=== PATIENT | male | born 1940 | race Caucasian/White ===

== ENCOUNTER → 2018-11-15 09:09 | Outpatient (CLI) | payer MEDICARE, OTHER, SELFPAY ==
[2017-02-19 15:56] VITALS: BMI 27.3
--- NOTE | 2018-11-15 09:25 | EKG12_ITS ---
Test Reason : PRE OP Blood Pressure : / mmHG Vent. Rate : 059 BPM Atrial Rate : 059 BPM P-R Int : 152 ms QRS Dur : 098 ms QT Int : 430 ms P-R-T Axes : 065 068 -06 degrees QTc Int : 425 ms Sinus bradycardia Moderate voltage criteria for LVH, may be normal variant T wave abnormality, consider inferior ischemia Abnormal ECG When compared with ECG of 11-OCT-2016 10:09, Premature ventricular complexes are no longer Present QT has shortened Confirmed by ISAIAH LAWTON, AMADOU ([id number]), makeup editor ALLIE FERMIN ([id number]) on 11/22/2018 12:58:27 PM Referred By: Frankie Fermin Confirmed By:AMADOU COLON MD
[2018-11-15 10:14] LABS: Hematocrit 44.4 % (40-54); Hemoglobin 14.6 g/dl (13.0-16.5); Mean Corp Hgb Conc 32.9 g/gl (32-36); Mean Corpuscular Hgb 30.1 pg (27.0-32.0); Mean Corpuscular Volume 91.5 fL (80-94); Mean Platelet Vol. 11.2 fl (6.2-12.0); Platelet Count 175 K/mm3 (150-450); RBC Distribution Width CV 14.5 % (11.6-14.6); RBC Distribution Width SD 47.4 fl (35.1-43.9); Red Blood Count 4.85 M/mm3 (4.6-6.2); White Blood Count 6.4 K/mm3 (4.4-11.0)
[2018-11-15 10:24] LABS: Scan Indicated on CBC? Y/N NO
[2018-11-15 10:53] LABS: Anion Gap 6 (5-15); BUN 27 mg/dL (7-18); BUN/Creat Ratio 21.4 RATIO (10-20); Calcium,Total 8.7 mg/dL (8.5-10.1); Chloride 108 mmol/L (98-107); Creatinine, Serum 1.26 mg/dL (0.70-1.30); EST Glomerular Filtration Rate 59 mL/min (>60); Est Glom Filt Rate - Afr Amer 71 mL/min (>60); Glucose 92 mg/dL (74-106); Potassium 4.2 mmol/L (3.5-5.1); Sodium Level 141 mmol/L (136-145)
== END ==
PROVIDERS: Family Provider Family Medicine; PCP Family Medicine; Referring Provider Orthopaedic Surgery; Visit Provider Orthopaedic Surgery
DX: Z01.818 Encounter for other preprocedural examination (principal); I10 Essential (primary) hypertension; Z79.899 Other long term (current) drug therapy
CPT/HCPCS: 36415; 80048; 85027; 93005

== ENCOUNTER → 2018-12-14 15:57 | Outpatient (CLI) | payer MEDICARE, OTHER, SELFPAY ==
[2017-02-19 15:56] VITALS: BMI 27.3
[2018-12-14 17:11] LABS: Hematocrit 44.8 % (40-54); Hemoglobin 14.3 g/dl (13.0-16.5); Mean Corp Hgb Conc 31.9 g/gl (32-36); Mean Corpuscular Hgb 28.9 pg (27.0-32.0); Mean Corpuscular Volume 90.5 fL (80-94); Mean Platelet Vol. 11.4 fl (6.2-12.0); Platelet Count 194 K/mm3 (150-450); RBC Distribution Width CV 14.7 % (11.6-14.6); RBC Distribution Width SD 47.9 fl (35.1-43.9); Red Blood Count 4.95 M/mm3 (4.6-6.2); Scan Indicated on CBC? Y/N NO; White Blood Count 8.3 K/mm3 (4.4-11.0)
[2018-12-14 17:19] LABS: Anion Gap 6 (5-15); BUN 30 mg/dL (7-18); BUN/Creat Ratio 22.7 RATIO (10-20); Calcium,Total 8.8 mg/dL (8.5-10.1); Chloride 107 mmol/L (98-107); Creatinine, Serum 1.32 mg/dL (0.70-1.30); EST Glomerular Filtration Rate 56 mL/min (>60); Est Glom Filt Rate - Afr Amer 67 mL/min (>60); Glucose 89 mg/dL (74-106); Potassium 3.9 mmol/L (3.5-5.1); Sodium Level 142 mmol/L (136-145)
== END ==
PROVIDERS: Family Provider Internal Medicine; PCP Internal Medicine; Referring Provider Orthopaedic Surgery; Visit Provider Orthopaedic Surgery
DX: Z01.818 Encounter for other preprocedural examination (principal); I10 Essential (primary) hypertension
CPT/HCPCS: 36415; 80048; 85027

== ENCOUNTER 2019-06-05 23:53 | Emergency (ER) | payer MEDICARE, OTHER, SELFPAY ==
[2019-05-18 10:22] VITALS: BMI 29.3
[2019-06-05 23:54] VITALS: BP 178/93; PULSE 74; RESP 16; TEMP 36.8; O2SAT 96; BMI 30.4
--- NOTE | 2019-06-06 00:06 | RAD_ITS ---
HISTORY: PPainRAD - Hip ADDITIONAL HISTORY: None provided. COMPARISON: None TECHNIQUE: Right hip 2 views with AP pelvis Number of images including paperwork: 3 FINDINGS: BONES: No acute fracture. JOINTS: No subluxation. Right total hip arthroplasty. Acetabular cup appears somewhat horizontally located and there appears to be some lucency in the adjacent acetabulum. 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 SOFT TISSUES: No distinct foreign body. Vascular calcifications. RAD/HIP, UNI W/ Pelvis 2-3 Views IMPRESSION: 1. No acute osseous abnormality. 2. 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 Orthopedic surgery follow-up and correlation with previous radiograph recommended. 3. Degenerative changes of the left hip. at 0032 Reported and signed by: Fariba Calderón MD Electronically Signed: Fariba Calderón MD at 0:32 EDT Tel , Service support ,
[2019-06-06] MEDS: Triamcinolone Acetonide 40 MG/ML Vial IM (00:38)
[2019-06-06] MEDS: HYDROcodone Bitartrate/Apap 5/325 Tablet PO (01:06)
--- NOTE | 2019-06-06 01:44 | DCINST.ED_ITS ---
ED Disposition - Plan for ED Patient: Instructions: Medication for Pain Prescriptions: Hydrocodone Bitart/Apap 5-325 [[place] 5MG-325MG] 1 tab PO Q6H PRN PRN 3 Days #12 tab PRN Reason: Pain Prescription Printed Referrals: Alexandru Paul DO [STAFF PHYSICIAN] -
--- NOTE | 2019-06-06 01:44 | ED.VISSUMM ---
- ER Visit Summary Date of Service: 06/06/19 Chief Complaint: Right hip pain History of Present Illness: The patient is a 79 M with right hip pain for a week. Worse when getting out of a truck. The pain is in his right hip and does not radiate. He has seen a chiropractor and urgent cares. He was started on prednisone, but nothing seems to help. He has a history of a right hip replacement remotely. Denies associated symptoms like redness or warmth. Denies weakness or numbness. Denies injury. Physical Examination: Afebrile and vital signs unremarkable. Right hip shows normal inspection. No shortening or abnormal rotation. Overlying skin appears normal. Range of motion intact. Pain with logroll. Knee unremarkable. Neurovascularly intact distally. 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 Emergency Department Course and Treatment: Patient treated with Kenalog IM. It sounds like this has helped him in the past. X-rays were concerning for particle disease. This was discussed with Dr. Paul. He said there was nothing to do for this emergently. If the patient required admission for pain control, we could admit to medicine. I discussed this with the patient. He will need follow-up with orthopedics. He would like to try to go home. He has a walker that he can use. We will attempt pain medication, and see how he does with the walker. He was treated with 2 [place]. On reevaluation, patient was feeling better. Pain was better. He was able to get around using a walker. He would like to go home and follow-up with orthopedics as an outpatient. He was given a short course of pain medicine. Call orthopedics in the morning to schedule follow-up. Treatment Plan: As above Disposition: Discharge Impression: 1. Right hip pain This note was generated with [employer] dictation software. It may contain incorrect words, spelling, and punctuation that were not noted in review of the chart prior to signing ED Disposition - Plan for ED Patient: Instructions: Medication for Pain Prescriptions: Hydrocodone Bitart/Apap 5-325 [[place] 5MG-325MG] 1 tab PO Q6H PRN PRN 3 Days #12 tab PRN Reason: Pain Prescription Printed Referrals: Alexandru Paul DO [STAFF PHYSICIAN] -
[2019-06-06 02:08] VITALS: BP 167/93; PULSE 94; RESP 18; O2SAT 95
== END 2019-06-06 02:11 | disposition home or self-care (01) ==
LOC: ED 06-06 00:37
PROVIDERS: Emergency Provider Emergency Medicine; Family Provider Internal Medicine; PCP Internal Medicine
DX: M25.551 Pain in right hip (principal); Z96.641 Presence of right artificial hip joint; I13.0 Hypertensive heart and chronic kidney disease with heart failure and stage 1 through stage 4 chronic kidney disease, or unspecified chronic kidney disease; I50.9 Heart failure, unspecified; N18.9 Chronic kidney disease, unspecified
CPT/HCPCS: 73502; 96372; 99284

== ENCOUNTER → 2019-06-14 06:34 | Outpatient (CLI) | payer MEDICARE, OTHER, SELFPAY ==
[2019-05-18 10:22] VITALS: BMI 29.3
[2019-06-05 23:54] VITALS: BMI 30.4
--- NOTE | 2019-06-14 06:44 | ECHOD_ITS ---
Reason For Study: Dyspnea/SOB Procedure This was a 2D Doppler, Color Flow transthoracic echocardiogram. Exam performed in department. Left Ventricle Normal LV size. Mild concentric left ventricular hypertrophy. Left ventricular systolic function is normal. The estimated ejection fraction is 60 %. Diastolic function is indeterminate. No regional wall motion abnormalities noted. Right Ventricle Normal RV size. Normal systolic function. Atria Borderline left atrial enlargement. Normal right atrium. No doppler evidence for ASD. Mitral Valve There is no mitral annular calcification. Normal mitral valve. Trivial mitral valve insufficiency. Tricuspid Valve Normal tricuspid valve. Trivial tricuspid valve insufficiency. Aortic Valve Trisinus/trileaflet aortic valve. Mild diffuse aortic valve thickening. Mild focal aortic valve calcification. Pulmonic Valve The pulmonic valve is not well visualized. Trivial pulmonic valve insufficiency. Great Vessels Normal sized aortic root. Pericardium/Pleural No pericardial effusion. MMode/2D Measurements & Calculations LVIDd: 4.7 cm IVSd: 1.3 cm Ao root diam: 3.4 cm LVIDs: 3.4 cm LVPWd: 1.3 cm RVDd: 4.0 cm FS: 28.4 % LAV(MOD-bp): 52.5 ml LVAd ap4: 32.6 cm2 SV(MOD-sp4): 54.1 ml LAV(MOD-bp) Indexed: 25.7 ml/m2 EDV(MOD-sp4): 95.5 ml LAV(MOD-sp2): 49.2 ml EDV(sp4-el): 96.7 ml LAV(MOD-sp4): 53.4 ml LVAs ap4: 20.0 cm2 ESV(MOD-sp4): 41.5 ml ESV(sp4-el): 41.4 ml EF(MOD-sp4): 56.6 % EF(sp4-el): 57.2 % SV(sp4-el): 55.3 ml LA A4 area: 18.7 cm2 LA dimension(2D): 4.9 cm RA A4 area: 11.7 cm2 Doppler Measurements & Calculations MV E max yunior: 88.0 cm/sec Lat Peak E' Yunior: 9.7 cm/sec Med Peak E' Yunior: 5.6 cm/sec MV A max yunior: 114.7 cm/sec E/E' lat: 9.0 E/E' med: 15.9 MV E/A: 0.77 Ao V2 max: 191.0 cm/sec LV V1 max: 110.6 cm/sec PA V2 max: 109.1 cm/sec Ao max P.6 mmHg LV V1 max P.9 mmHg Ao V2 mean: 128.8 cm/sec Ao mean P.5 mmHg Ao V2 VTI: 38.9 cm Interpretation Summary Left ventricular systolic function is normal. The estimated ejection fraction is 60 %. Mild concentric left ventricular hypertrophy. Borderline left atrial enlargement. Trivial mitral valve insufficiency. Trivial tricuspid valve insufficiency. Mild diffuse aortic valve thickening. Mild focal aortic valve calcification. Trivial pulmonic valve insufficiency. Diastolic function is indeterminate. Ordering Physician: Fred Felipe Referring Physician: Dallas Reed Performed By: Marianne Jay, KATHRYN, RVT
--- NOTE | 2019-06-14 13:59 | STRESSREP ---
Stress Test Report Date: 05-25-19 Procedure: Pharmacologic stress nuclear imaging study Indications: Shortness of breath/dyspnea on exertion; CHF-chronic diastolic; peripheral arterial occlusive disease; hyperlipidemia; hypertension Consent: Per the patient Procedure: The patient underwent pharmacologic (Regadenoson) evaluation with a peak heart rate of 93 beats per minute (65 %predicted maximal heart rate) and a peak blood pressure of 160/88 mmHg. The baseline ECG demonstrated normal sinus rhythm. The peak pharmacologic ECG demonstrated no obvious ECG changes. There was a rare PVC during infusion and an occasional PVC during recovery. There was no complaint of chest discomfort during pharmacologic infusion or recovery. The examination was discontinued secondary to completion of protocol. Impression: 1. Pharmacologic (Regadenoson) evaluation 2. Peak pharmacologic ECG with no obvious ECG changes. 3. There was a rare PVC during infusion and an occasional PVC during recovery. 4. Nuclear images pending Myocardial perfusion imaging study: Technique: The patient was injected with 14.6 millicuries of technetium 99m Cardiolite and subsequently rest SPECT Cardiolite nuclear imaging was obtained in the horizontal long, vertical long, and short axis views. The patient underwent pharmacologic (Regadenoson) evaluation with a peak heart rate of 93 beats per minute (65 % percent predicted maximal heart rate) and a peak blood pressure of 160/88 mmHg. The patient was injected with 44.7 millicuries of technetium 99m Cardiolite and subsequently stress SPECT Cardiolite nuclear imaging was obtained in the horizontal long, vertical long, and short axis views. A gated Cardiolite study at peak stress was obtained. Interpretation: Rest and stress SPECT Cardiolite nuclear imaging status post realignment, normalization, and attenuation correction demonstrate relative uniform tracer uptake and myocardial perfusion appearing within normal limits. There is end systolic thickening and brightening. The gated Cardiolite study demonstrates myocardial thickening and inward wall motion. The reported LVEF is 61 %. Impression: 1. Rest and stress SPECT Cardiolite nuclear imaging demonstrate relative uniform tracer uptake and myocardial perfusion appearing within normal limits. 2. The gated Cardiolite study reports an LVEF of 61 %. This note was generated with [employer] software. It may contain incorrect words, spelling, and punctuation that were not noted in checking the note before signing.
== END ==
PROVIDERS: Family Provider Internal Medicine; PCP Internal Medicine; Referring Provider Internal Medicine Cardiovascular Disease; Visit Provider Internal Medicine Cardiovascular Disease
DX: Z01.810 Encounter for preprocedural cardiovascular examination (principal); I11.0 Hypertensive heart disease with heart failure; I50.32 Chronic diastolic (congestive) heart failure; E78.5 Hyperlipidemia, unspecified; R06.02 Shortness of breath
CPT/HCPCS: 78452; 93017; 93306; A9500; A4216; J2785

== ENCOUNTER 2019-06-15 11:58 | Emergency (ER) | payer MEDICARE, OTHER, SELFPAY ==
[2019-06-15 11:59] VITALS: BP 154/75; PULSE 78; RESP 18; TEMP 36.6; O2SAT 97; BMI 30.4
--- NOTE | 2019-06-15 12:41 | CT_ITS ---
STUDY: CT RIGHT FEMUR WITHOUT CONTRAST REASON FOR EXAM: Male, 79 years old. Right hip pain. Prior right total hip replacement. RADIATION DOSAGE (If Supplied By Facility): CTDIvol = ( 20.02 ) mGy, DLP = ( 976.76 ) mGycm TECHNIQUE: Transaxial CT imaging of the femur was performed. Sagittal and coronal images were reconstructed. Individualized dose optimization techniques were used for this CT. COMPARISON: Comparison is made with prior radiograph dated June 06, 2019. FINDINGS: The patient is status post right total hip replacement. There is good alignment. There is no evidence of fracture or dislocation. There is prominence of the right iliopsoas muscle extending to the anterior muscle group. This may represent the edema. Distended urinary bladder. There is evidence of a 2.9 cm x 3.9 cm diverticulum in the posterior lateral aspect of the right side of the bladder. CT/Extremity Lower without Contra IMPRESSION: Status post right hip replacement appears good alignment. Findings suggestive of swelling of the iliopsoas psoas muscle and the anterior muscle group right side overlying the hip joint. This may represent edema. Right-sided bladder diverticulum. Electronically Signed: Jw Alcaraz, at 14:31 EDT , Service support ,
[2019-06-15] MEDS: Morphine 4 MG/ML Syringe SC (13:20)
[2019-06-15 13:24] LABS: Erythrocyte Sedimentation Rate 5 mm/hr (0-20)
[2019-06-15 13:25] LABS: Absolute Neutrophil Count 7.5 X10^3/uL (2.0-7.7); Basophil# 0.03 X10^3/uL; Basophil% 0.3 % (0-1); Eosinophil# 0.01 X10^3/uL; Eosinophils% 0.1 % (0-5); Hematocrit 37.8 % (40-54); Hemoglobin 12.4 g/dL (13.0-16.5); Lymphocyte % 14.4 % (19-41); Mean Corp Hgb Conc 32.8 g/dL (32-36); Mean Corpuscular Hgb 29.7 pg (27.0-32.0); Mean Corpuscular Volume 90.6 fL (80-94); Mean Platelet Vol. 10.9 fl (6.2-12.0); Monocyte# 0.64 X10^3/uL; Monocyte% 6.6 % (0-10); NRBC Flagged by Analyzer 0 % (0-5); Neutrophil # 7.47 X10^3/uL (2.7-7.7); Platelet Count 197 K/mm3 (150-450); RBC Distribution Width CV 14.5 % (11.6-14.6); RBC Distribution Width SD 48.1 fl (35.1-43.9); Red Blood Count 4.17 M/mm3 (4.6-6.2); White Blood Count 9.7 K/mm3 (4.4-11.0)
[2019-06-15 13:31] LABS: CRP < 2.90 mg/L (0.0-3.0)
--- NOTE | 2019-06-15 14:48 | ED.VISSUMM ---
- ER Visit Summary Date of Service: 06/15/19 Chief Complaint: Right hip pain History of Present Illness: The patient is a 79 M with ongoing right hip pain. Status post hip replacement something like 20 years ago. He was seen previously for hip pain and followed up with his orthopedist. He had an outpatient MRI but is awaiting the results. He has continued pain. He is using oxycodone once or twice a day with no improvement of his pain. No new or different symptoms. He has pain that radiates from his right hip into his groin. Denies any urinary symptoms. Denies back pain. Denies weakness or numbness. Denies fevers or systemic symptoms. Physical Examination: Afebrile and vital signs unremarkable. Inspection is unremarkable. Strength and sensation are intact. Abdomen soft. Back is nontender. Test Results: See below Emergency Department Course and Treatment: Patient's previous visit was reviewed. I could not see the results of the MRI, so I spoke with Dr. Loco. He was concerned for a muscle tear. He recommended CT as well as CBC, ESR, and CRP. The patient was treated with morphine while awaiting results. White count normal. Hemoglobin 12.4. ESR 5 and CRP less than 2.9. CT showed prominence of the iliopsoas muscle consistent with edema. He has postoperative changes and a bladder diverticulum. I suspect that he has muscle pain and a possible tear. There is nothing to suggest infection, fracture, or other implants anomaly. Dr. Loco will see the patient tomorrow. I advised that he can take his pain medication up to every 6 hours. He was given a new prescription. Treatment Plan: As above Disposition: Discharge Impression: 1. Right hip pain This note was generated with [employer] software. It may contain incorrect words, spelling, and punctuation that were not noted in review of the chart prior to signing ED Disposition - Plan for ED Patient: Referrals: Dallas Reed MD [Primary Care Provider] -
--- NOTE | 2019-06-15 14:51 | ED.DEP ---
ED Disposition - Plan for ED Patient: Instructions: Hip Strain Prescriptions: Oxycodone HCl/Acetaminophen [P[place] 5/325] 1 tab PO Q6H PRN PRN 3 Days #12 tab PRN Reason: Pain Prescription Printed Referrals: Shelton Loco MD [STAFF PHYSICIAN] -
[2019-06-15 14:53] VITALS: BP 170/93
== END 2019-06-15 15:05 | disposition home or self-care (01) ==
LOC: ED 13:24
PROVIDERS: Emergency Medicine; Emergency Provider Emergency Medicine; Family Provider Internal Medicine; PCP Internal Medicine
DX: M25.551 Pain in right hip (principal); N32.3 Diverticulum of bladder; Z79.899 Other long term (current) drug therapy; Z96.641 Presence of right artificial hip joint
CPT/HCPCS: 73700; 85025; 85652; 86140; 96372; 99283; A4216

== ENCOUNTER → 2019-12-05 13:28 | Outpatient (CLI) | payer MEDICARE, OTHER, SELFPAY ==
[2019-07-24 15:17] VITALS: BMI 29.9
--- NOTE | 2019-12-05 13:33 | US_ITS ---
STUDY: SCROTUM ULTRASOUND REASON FOR EXAM: Male, 79 years old. Right groin pain. Right inguinal hematoma removed July 2019. TECHNIQUE: Ultrasound evaluation of the scrotum was performed with color Doppler and static tom-scale imaging. COMPARISON: None. FINDINGS: RIGHT TESTICLE INTRATESTICULAR: There is a normal size of the right testicle. The right testicle measures 4.5 x 3.0 x 3.2 cm. There is a homogenous echotexture. There is normal arterial and normal venous vascularity. Testicular cyst measuring 0.4 x 0.4 x 0.2 cm. EXTRATESTICULAR: The epididymis is normal in size. The epididymis head measures 1.0 x 0.9 x 0.8 cm. There is normal vascularity of the epididymis. There is no demonstrated epididymal cystic structure. There is a moderate size hydrocele. There is no demonstrated varicocele. There is no demonstrated extratesticular mass or cyst. LEFT TESTICLE INTRATESTICULAR: There is a normal size of the left testicle. The left testicle measures 4.0 x 2.7 x 3.0 cm. There is a homogenous echotexture. There is normal arterial and normal venous vascularity. Testicular cysts measuring 0.6 x 0.6 x 0.5 cm and 0.3 x 0.2 x 0.2 cm. EXTRATESTICULAR: The epididymis is normal in size. The epididymis head measures 0.9 x 0.8 x 0.7 cm. There is normal vascularity of the epididymis. Epididymal cyst measuring 0.7 x 0.5 x 0.5 cm. There is a moderate size hydrocele. There is no demonstrated varicocele. There is no demonstrated extratesticular mass or cyst. US/Testicular with Arterial Flow IMPRESSION: Bilateral subcentimeter testicular cysts. Recommend urology consult. Moderate bilateral hydroceles. Left epididymal cyst. No right inguinal hematoma. Electronically Signed: Twin Jade MD at 8:01 EDT , Service support ,
== END ==
PROVIDERS: PCP Internal Medicine; Referring Provider Nurse Practitioner Family; Visit Provider Nurse Practitioner Family
DX: R10.2 Pelvic and perineal pain (principal)
CPT/HCPCS: 76870; 93976

== ENCOUNTER → 2020-02-23 07:45 | Outpatient (CLI) | payer MEDICARE, OTHER, SELFPAY ==
[2020-02-14 11:03] VITALS: BMI 28.8
--- NOTE | 2020-02-23 07:45 | AAVD_ITS ---
Reason For Study: AAA Aorta Measurements Aorta Doppler Measurements Proximal aorta measures1.67 X 1.71cm. in cross- Peak systolic flow velocities within the proximal sectional axis. aorta measure 80.9 cm/sec. Proximal aorta measures1.61cm. in longitudinal Peak systolic flow velocities within the mid aorta axis. measure 70.2 cm/sec. Mid aorta measures3.67 X 3.65cm. in cross- Peak systolic flow velocities within the distal sectional axis. aorta measure 68.3 cm/sec. Mid aorta measures3.47cm. in longitudinal axis. Distal aorta measures1.93 X 1.98cm. in cross- sectional axis. Distal aorta measures1.7cm. in longitudinal axis. Left Iliac Artery Left iliac artery measures 1.17 X 1.13 cm. in the cross-sectional axis. Left iliac artery measures 1.2 cm. in the longitudinal axis. Peak systolic velocity in the left iliac artery measures 125.8 cm/sec. Right Iliac Artery Right iliac artery measures 1.22 X 1.25 cm. in the cross-sectional axis. Right iliac artery measures 1.1 cm. in the longitudinal axis. Peak systolic velocity in the right iliac artery measures 99.0 cm/sec. Procedure Aorta IVC Iliac vasculature or bypass grafts [id number]. Exam performed in department. 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
== END ==
PROVIDERS: PCP Internal Medicine; Referring Provider Internal Medicine Cardiovascular Disease; Visit Provider Internal Medicine Cardiovascular Disease
DX: I71.4 Abdominal aortic aneurysm, without rupture (principal)
CPT/HCPCS: 93978

== ENCOUNTER → 2021-01-03 08:45 | Outpatient (CLI) | payer MEDICARE, OTHER, SELFPAY ==
[2020-05-14 09:36] VITALS: BMI 28.1
--- NOTE | 2021-01-03 08:47 | CDU_ITS ---
Reason For Study: Carotid stenosis Rt. Velocities/BP Lt. Velocities/BP Prox CCA 69.5/20 cm/sec. Prox CCA 108.3/17 cm/sec. Mid CCA 74.7/17.3 cm/sec. Mid CCA 157.6/33.4 cm/sec. Dist CCA 77.3/10.8 cm/sec. Dist CCA 112/15.2 cm/sec. Prox ICA 425.3/111.5 cm/sec. Prox ICA 127.9/33.6 cm/sec. Mid ICA 198.1/52.7 cm/sec. Mid ICA 136.7/35.8 cm/sec. Dist ICA 143.2/47.4 cm/sec. Dist ICA 110.1/38.9 cm/sec. Rt. ICA/CCA = 5.69. Lt. ICA/CCA = 1.22. Prox ECA 204.6/10.7 cm/sec. Prox ECA 180.6/7.2 cm/sec. Rt. Vert. 75.4/24.3 cm/sec. Lt. Vert. 52/16.8 cm/sec. Right Extracranial There is homogeneous, smooth atherosclerotic plaque noted in the right common carotid artery. There is heterogeneous, irregular atherosclerotic plaque noted in the right internal carotid artery. There is heterogeneous, irregular atherosclerotic plaque noted in the right external carotid artery. Antegrade flow is noted in the right vertebral artery. Left Extracranial There is heterogeneous, smooth atherosclerotic plaque noted in the left common carotid artery. There is heterogeneous, irregular atherosclerotic plaque noted in the left internal carotid artery. There is heterogeneous, irregular atherosclerotic plaque noted in the left external carotid artery. Antegrade flow is noted in the left vertebral artery. Procedure Carotid Duplex [id number]. This is a Carotid Duplex examination using B-mode, color flow and specral Doppler. Exam performed in department. VL/Carotid Duplex Ultrasound Interpretation Summary Irregular calcific plaque at the proximal right internal carotid artery with gr eater than 70% stenosis. Findings concerning for greater than 80% stenosis. Greater than 50% stenosis right external carotid artery Irregular calcific plaque with shadowing left proximal internal carotid artery with 50 to 69% stenosis Less than 50% stenosis left external carotid artery Patent and antegrade vertebrals bilaterally Ordering Physician: Mike Jay Referring Physician: Dallas Reed M.D. Performed By: Felicita Jeronimo RVT
--- NOTE | 2021-01-03 08:47 | AAVD_ITS ---
Reason For Study: AAA history Aorta Measurements Aorta Doppler Measurements Proximal aorta measures1.77 x 1.71cm. in cross- Peak systolic flow velocities within the proximal sectional axis. aorta measure 128.9 cm/sec. Proximal aorta measures1.73cm. in longitudinal Peak systolic flow velocities within the mid aorta axis. measure 108.8 cm/sec. Mid aorta measures4.20 x 4.11cm. in cross- Peak systolic flow velocities within the distal sectional axis. aorta measure 101.5 cm/sec. Mid aorta measures4.10cm. in longitudinal axis. Distal aorta measures1.92 x 1.94cm. in cross- sectional axis. Distal aorta measures1.90cm. in longitudinal axis. Left Iliac Artery Left iliac artery measures 1.31 x 1.29 cm. in the cross-sectional axis. Left iliac artery measures 1.28 cm. in the longitudinal axis. Peak systolic velocity in the left iliac artery measures 132.5 cm/sec. Right Iliac Artery Right iliac artery measures 1.17 x 1.20 cm. in the cross-sectional axis. Right iliac artery measures 1.21 cm. in the longitudinal axis. Peak systolic velocity in the right iliac artery measures 86.9 cm/sec. Procedure Aorta IVC Iliac vasculature or bypass grafts [id number]. Exam performed in department. VL/Abd Aortic/IVC Duplex scan Interpretation Summary Proximal abdominal aorta 1.77 x 1.71 cm Mid abdominal aortic aneurysm 4.2 x 4.11 cm Right common iliac 1.17 x 1.2 cm in diameter Left common iliac 1.31 x 1.29 cm diameter Ordering Physician: Mike Jay Referring Physician: Dallas Reed M.D. Performed By: Felicita Jeronimo RVT
== END ==
PROVIDERS: PCP Internal Medicine; Referring Provider Nurse Practitioner Family; Visit Provider Nurse Practitioner Family
DX: I65.22 Occlusion and stenosis of left carotid artery (principal); I71.4 Abdominal aortic aneurysm, without rupture
CPT/HCPCS: 93880; 93978

== ENCOUNTER → 2021-01-09 07:49 | Outpatient (CLI) | payer MEDICARE, OTHER, SELFPAY ==
[2021-01-08 14:49] VITALS: BMI 26.6
[2021-01-09 08:04] LABS: Hematocrit 37.7 % (40-54); Hemoglobin 11.9 g/dL (13.0-16.5); Mean Corp Hgb Conc 31.6 g/dL (32-36); Mean Corpuscular Hgb 29.1 pg (27.0-32.0); Mean Corpuscular Volume 92.2 fL (80-94); Mean Platelet Vol. 10.2 fl (6.2-12.0); Platelet Count 156 K/mm3 (150-450); RBC Distribution Width CV 15.4 % (11.6-14.6); Red Blood Count 4.09 M/mm3 (4.6-6.2); White Blood Count 7.2 K/mm3 (4.4-11.0)
[2021-01-09 08:45] LABS: ALB/GLOB Ratio 0.9 RATIO (0.9-2.4); AST(SGOT) 19 U/L (15-37); Alanine Aminotransfer ALT/SGPT 21 U/L (16-61); Albumin, Serum 3.2 g/dL (3.2-5.0); Alkaline Phosphatase 60 U/L (45-117); Anion Gap 4 (5-15); BUN 24 mg/dL (7-18); Calcium,Total 8.7 mg/dL (8.5-10.1); Chloride 107 mmol/L (98-107); Cholesterol 182 mg/dL (200); Creatinine, Serum 1.33 mg/dL (0.70-1.30); EST Glomerular Filtration Rate 55 mL/min (>60); Est Glom Filt Rate - Afr Amer 66 mL/min (>60); Globulin 3.7 g/dL (2.2-4.2); Glucose 96 mg/dL (74-106); High Density Lipoprotein 61 mg/dL; Potassium 3.6 mmol/L (3.5-5.1); Protein, Total 6.9 g/dL (6.4-8.2); Sodium Level 141 mmol/L (136-145); Triglycerides 57 mg/dL; Very Low Density Lipoprotein 11 mg/dL (5-40)
== END ==
PROVIDERS: PCP Internal Medicine; Referring Provider Surgery; Visit Provider Surgery
DX: Z01.818 Encounter for other preprocedural examination (principal); I65.29 Occlusion and stenosis of unspecified carotid artery
CPT/HCPCS: 36415; 80053; 80061; 85027

== ENCOUNTER → 2021-01-10 07:58 | Outpatient (CLI) | payer MEDICARE, OTHER, SELFPAY ==
[2021-01-08 14:49] VITALS: BMI 26.6
--- NOTE | 2021-01-10 08:03 | CT_ITS ---
STUDY: CTA NECK WITH CONTRAST REASON FOR EXAM: Male, 81 years old. Carotid Stenosis RADIATION DOSAGE (If Supplied By Facility): CTDIvol = ( 20.59 ) mGy, DLP = ( 482.36 ) mGycm TECHNIQUE: CT angiography with multi-detector data acquisition was performed from the aortic arch to the skull base following intravenous administration of IV 100mL Isovue-370. MIP images were reconstructed from the axial data set. Post-processing of the angiographic images was performed, with multiplanar reformation and 3D reconstruction. Individualized dose optimization techniques were used for this CT. COMPARISON: None. FINDINGS: AORTIC ARCH: There is atherosclerotic calcific plaque formation of the aortic arch and great vessels arising from the aortic arch, without a hemodynamically significant stenosis. There is a normal origin of the brachiocephalic, left common carotid, and left subclavian arteries. RIGHT CAROTID ARTERIES: There is atherosclerotic plaque formation of the common carotid artery, but without a hemodynamically significant stenosis. Normal right common carotid bulb. There is extensive atherosclerotic plaque formation of the origin of the right internal carotid artery with an estimated stenosis of greater than 70%. Normal visualized cervical portion of the right internal carotid artery. There is extensive atherosclerotic plaque formation of the origin of the right external carotid artery with an estimated stenosis of greater than 70%. LEFT CAROTID ARTERIES: Normal left common carotid artery (CCA). Normal left common carotid bulb. There is mild atherosclerotic plaque formation of the origin of the left internal carotid artery with less than 50% cross sectional diameter stenosis. Normal visualized cervical portion of the left internal carotid artery. There is moderate atherosclerotic plaque formation of the origin of the left external carotid artery with an estimated stenosis of 50-69% stenosis. VERTEBRAL ARTERIES: Normal bilateral vertebral arteries. 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 50% narrowing at the origin of the left internal carotid artery. Electronically Signed: Jw Alcaraz MD at 12:32 EDT , Service support ,
[2021-01-10 08:20] VITALS: BP 151/69; PULSE 64; RESP 18; TEMP 36.4; O2SAT 96; BMI 26.6
== END ==
PROVIDERS: PCP Internal Medicine; Referring Provider Surgery; Visit Provider Surgery
DX: I65.23 Occlusion and stenosis of bilateral carotid arteries (principal)
CPT/HCPCS: 96360; 70498; J7040; Q9967; A4216

== ENCOUNTER 2021-01-20 05:24 | Inpatient (IN) | payer MEDICARE, OTHER, SELFPAY ==
[2021-01-14 16:00] VITALS: BMI 26.6
--- NOTE | 2021-01-16 13:42 | EKG12_ITS ---
Test Reason : PREOP Blood Pressure : / mmHG Vent. Rate : 068 BPM Atrial Rate : 068 BPM P-R Int : 148 ms QRS Dur : 098 ms QT Int : 442 ms P-R-T Axes : 054 050 012 degrees QTc Int : 469 ms Sinus rhythm with occasional Premature ventricular complexes and Premature atrial complexes Nonspecific T wave abnormality Prolonged QT Abnormal ECG Confirmed by TERENCE LAWTON, VERNELL ([id number]), assignment editor BENITA NUNN ([id number]) on 01/17/2021 10:07:33 AM Referred By: Omid Perez Confirmed By:VERNELL PRATT MD
[2021-01-16 14:52] LABS: Hematocrit 38.8 % (40-54); Hemoglobin 11.8 g/dL (13.0-16.5); Mean Corp Hgb Conc 30.4 g/dL (32-36); Mean Corpuscular Hgb 28.4 pg (27.0-32.0); Mean Corpuscular Volume 93.3 fL (80-94); Platelet Count 160 K/mm3 (150-450); RBC Distribution Width CV 15.7 % (11.6-14.6); RBC Distribution Width SD 53.6 fl (35.1-43.9); Red Blood Count 4.16 M/mm3 (4.6-6.2); White Blood Count 7.1 K/mm3 (4.4-11.0)
[2021-01-16 15:03] LABS: International Normalized Ratio 1.1; Prothrombin Time (Protime)PT. 13.3 SECONDS (11.7-14.9)
[2021-01-16 15:04] LABS: Partial Thromboplast Time 41.6 Seconds (24.1-36.2)
[2021-01-16 15:40] LABS: AST(SGOT) 23 U/L (15-37); Alanine Aminotransfer ALT/SGPT 24 U/L (16-61); Albumin, Serum 3.4 g/dL (3.2-5.0); Alkaline Phosphatase 62 U/L (45-117); Anion Gap 5 (5-15); BUN 25 mg/dL (7-18); BUN/Creat Ratio 17.4 RATIO (10-20); Chloride 105 mmol/L (98-107); Creatinine, Serum 1.44 mg/dL (0.70-1.30); EST Glomerular Filtration Rate 50 mL/min (>60); Est Glom Filt Rate - Afr Amer 61 mL/min (>60); Globulin 3.6 g/dL (2.2-4.2); Glucose 109 mg/dL (74-106); Potassium 3.8 mmol/L (3.5-5.1); Sodium Level 139 mmol/L (136-145)
[2021-01-20] VITALS (41 sets, daily range): BP systolic 93–164; BP diastolic 40–99; PULSE 58–71; RESP 14–18; TEMP 35.8–36.9; O2SAT 93–99; BMI 11.9; BMI 28.0
--- NOTE | 2021-01-20 06:04 | HP.PCM_ITS ---
History and Physical Date of Admission: 01/20/21 Intake Visit Reasons:?discuss CTA Cnc Service Technician Required: No Is patient in pain?: No Allergies lisinopril Allergy (Intermediate, Verified 01/14/21 16:01) Rashatorvastatin calcium [From Lipitor] Allergy (Verified 01/14/21 16:01) Otherclonidine Allergy (Verified 01/14/21 16:01) Unknownrosuvastatin calcium [From Crestor] Allergy (Verified 01/14/21 16:01) DvcynQjxjcib-Apn-Usm Reductase Inhibitor Allergy (Verified 01/14/21 16:01) Other Medications [id number] 1 ea PO DAILY 07/26/15 [History Confirmed 01/14/21] furosemide 20 mg tablet 20 mg PO DAILY 05/17/19 [History Confirmed 01/14/21] glucosamine-chondroitin 250 mg-200 mg tablet 2 tab PO DAILY? tab 05/17/19 [History Confirmed 01/14/21] losartan 100 mg tablet 100 mg PO DAILY 05/17/19 [History Confirmed 01/14/21] magnesium 200 mg tablet 400 mg PO DAILY? tab 05/17/19 [History Confirmed 01/14/21] cholecalciferol (vitamin D3) 50 mcg (2,000 unit) capsule 2,000 unit PO DAILY 05/18/19 [History Confirmed 01/14/21] coenzyme Q10 100 mg capsule 200 mg PO DAILY? cap 05/18/19 [History Confirmed 01/14/21] doxazosin 4 mg tablet 8 mg PO QHS? tab 05/18/19 [History Confirmed 01/14/21] garlic 1,000 mg capsule 1,000 mg PO DAILY? cap 05/18/19 [History Confirmed 01/14/21] grape seed extract 50 mg capsule 100 mg PO DAILY? cap 05/18/19 [History Confirmed 01/14/21] multivitamin 1 tab PO DAILY 05/18/19 [History Confirmed 01/14/21] biotin 5 mg capsule 5 mg PO DAILY 07/24/19 [History Confirmed 01/14/21] ascorbic acid (vitamin C) 500 mg capsule 4,000 mg PO DAILY? cap 02/14/20 [History Confirmed 01/14/21] colestipol 1 gram tablet 1 g PO BID? tab 02/14/20 [History Confirmed 01/14/21] hydralazine 100 mg tablet 100 mg PO Q6H? tab 02/14/20 [History Confirmed 01/14/21] carvedilol 12.5 mg tablet 12.5 mg PO BID? tab 05/14/20 [History Confirmed 01/14/21] aspirin 81 mg tablet,delayed release 81 mg PO QDAY #90 tablet 01/06/21 [Rx Confirmed 01/14/21] <Dr. Omid Perez MD - Last Filed: 01/14/21 16:18> Vital Signs ? 01/15/2116:00 Height 5 ft 8 in Weight: 175 lb BMI 26.6 BP 131/61 H Blood Pressure Location Rt brachial Position Sitting Respiration 16 Pulse 70 Pulse Source Monitor Temp 97.3 F L Temp Source Temporal Pulse Oximetry (%) 97 Oxygen Delivery Method room air [facility] <Germania Shoemaker - Last Filed: 01/14/21 16:01> Medical History? Abdominal aortic 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 Anemia Cough productive of purulent sputum 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, NYHA class 2 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 Diverticulosis Essential hypertension Hyperlipidemia Lumbar disc disease Pre-operative cardiovascular examination RSV (respiratory syncytial virus pneumonia) Shortness of breath Stenosis of right internal carotid artery Surgical History? History of blepharoplasty History of colonoscopy History of inguinal hernia repair History of total hip replacement History of total left knee replacement History of umbilical hernia repair Family History? Father?? Lung cancer Liver cancerMother Oral cancer Social History? Smoking Status:? Former smoker? second hand exposure:? No? alcohol intake:? never? substance use type:? does not use? caffeine:? Yes Type: coffee Number of servings: 2? <Dr. Omid Perez MD - Last Filed: 01/14/21 16:18> HPI HPI: Very pleasant 81-year-old gentleman.? 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 Most recent exhaustive office note will follow. On January 10, 2021 I had a CTA of the neck obtained.? This demonstrates greater than 70% stenosis of the right internal carotid artery and greater than 70% stenosis of the right external carotid artery.? There is less than 50% stenosis of the left internal carotid artery and 50 to 69% stenosis of left external carotid artery.? The vertebrals are patent and antegrade. It is of additional note that the patient is intolerant to all statin medications.? He is not able to manage his cholesterol in that fashion. Laboratory of January 09, 2001 shows a white count of 7.2 with a hemoglobin 11.9 hematocrit 37.7 and a platelet count of 156,000.? BUN was 24 and creatinine 1.33 with a GFR of 55.? Liver function test was normal.? Cholesterol is 182 with a triglyceride of 57.? LDL was 110 with a VLDL of 11. My previous notes reflect the following Intake Visit Reasons: AAA Carotid? Chief Complaint: AAA/ Carotid Cnc Service Technician Required: No Is patient in pain?: No Allergies lisinopril Allergy (Intermediate, Verified 01/08/21 14:41) Rashatorvastatin calcium [From Lipitor] Allergy (Verified 01/08/21 14:41) Otherclonidine Allergy (Verified 01/08/21 14:41) Unknownrosuvastatin calcium [From Crestor] Allergy (Verified 01/08/21 14:41) FwqdtEufxlrb-Jau-Lvk Reductase Inhibitor Allergy (Verified 01/08/21 14:41) Other Medications Om-3/Dha/Epa/D3/B12/FA/B-6/Phy [Animi-3 Capsule] 1 ea PO DAILY 07/26/15 [History Confirmed 01/08/21] furosemide 20 mg tablet 20 mg PO DAILY 05/17/19 [History Confirmed 01/08/21] glucosamine-chondroitin 250 mg-200 mg tablet 2 tab PO DAILY? tab 05/17/19 [History Confirmed 01/08/21] losartan 100 mg tablet 100 mg PO DAILY 05/17/19 [History Confirmed 01/08/21] magnesium 200 mg tablet 400 mg PO DAILY? tab 05/17/19 [History Confirmed 01/08/21] cholecalciferol (vitamin D3) 50 mcg (2,000 unit) capsule 2,000 unit PO DAILY 05/18/19 [History Confirmed 01/08/21] coenzyme Q10 100 mg capsule 200 mg PO DAILY? cap 05/18/19 [History Confirmed 01/08/21] doxazosin 4 mg tablet 8 mg PO QHS? tab 05/18/19 [History Confirmed 01/08/21] garlic 1,000 mg capsule 1,000 mg PO DAILY? cap 05/18/19 [History Confirmed 01/08/21] grape seed extract 50 mg capsule 100 mg PO DAILY? cap 05/18/19 [History Confirmed 01/08/21] multivitamin 1 tab PO DAILY 05/18/19 [History Confirmed 01/08/21] biotin 5 mg capsule 5 mg PO DAILY 07/24/19 [History Confirmed 01/08/21] ascorbic acid (vitamin C) 500 mg capsule 4,000 mg PO DAILY? cap 02/14/20 [History Confirmed 01/08/21] colestipol 1 gram tablet 1 g PO BID? tab 02/14/20 [History Confirmed 01/08/21] hydralazine 100 mg tablet 100 mg PO Q6H? tab 02/14/20 [History Confirmed 01/08/21] carvedilol 12.5 mg tablet 12.5 mg PO BID? tab 05/14/20 [History Confirmed 01/08/21] aspirin 81 mg tablet,delayed release 81 mg PO QDAY #90 tablet 01/06/21 [Rx Confirmed 01/08/21] PFSH Medical History? (Updated 01/08/21 @ 16:[address] Omid Perez MD) Stenosis of right internal carotid artery (Acute) Anemia (Chronic) Diverticulosis (Chronic) Lumbar disc disease (Chronic) Abdominal aortic 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 (Chronic) Essential hypertension (Chronic) 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 (Chronic) Hyperlipidemia (Chronic) Chronic kidney disease (Chronic) 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, NYHA class 2 (Suspected) Shortness of breath (Acute) Cough productive of purulent sputum (Resolved) Pre-operative cardiovascular examination (Resolved) RSV (respiratory syncytial virus pneumonia) (Resolved) Surgical History? (Updated 01/08/21 @ 14:49 by Germania Shoemaker) History of total hip replacement (Chronic) History of total left knee replacement (Chronic) History of umbilical hernia repair (Chronic) History of inguinal hernia repair (Chronic) History of blepharoplasty (Chronic) History of colonoscopy (Chronic) Family History? Father?? Lung cancer Liver cancerMother Oral cancer Social History? (Updated 01/08/21 @ 16:[address] Omid Perez MD) Smoking Status:? Former smoker? second hand exposure:? No? alcohol intake:? never? substance use type:? does not use? caffeine:? Yes Type: coffee Number of servings: 2? HPI HPI HPI: CAROLINA SY, is a 81 M who presents to the office today for surgical consultation regarding extracranial carotid artery occlusive disease and infr arenal abdominal aortic aneurysm.? The patient is referred by Mike Jay CNP and a written combination of consult recommendations will return to him. The patient has a known history of abdominal aortic aneurysm.? February 23, 2020 on duplex ultrasound his aneurysm measured 3.67 x 3.65 cm.? More recently he had that evaluated on January 03, 2021 at the [facility].? The mid abdominal aortic aneurysm now measures 4.2 x 4.11 cm in diameter.? The right common iliac 1.17 x 1.2 cm in the left common leg 1.31 x 1.29 cm. He currently denies any abdominal or back pain. Also on January 03 he had carotid duplex imaging because of a previous history of carotid stenosis.? Within the proximal right internal carotid artery peak systolic velocity is 425 cm/s flow and end-diastolic velocity is 111 cm/s flow.? This is consistent with greater then 70% stenosis and likely greater than 80% stenosis.? The right external carotid arteries greater than 50% stenosis.? The left internal carotid artery had a peak systolic velocity of 136 cm second be slow flow consistent with 50 to 69% stenosis.? The vertebrals were patent and antegrade. The patient denies myocardial infarction or stroke.? He denies any orthostasis.? He claims he is able to walk without calf claudication.? If he walks a long distance then he will become dyspneic. Dr. Johnny Beltran assisted the patient June 27, 2019 because of a hematoma of the right iliopsoas muscle which was treated nonoperatively conservatively. The patient had a cardiac stress test June 14, 2019 demonstrating an ejection fraction of 61%.? With no ischemia. It is of additional note that July 9015 I assisted the patient with an extraordinarily challenging laparoscopic repair of a recurrent in incarcerated right inguinal hernia in combination with right lower quadrant ventral incisional hernias.? The inguinal repair was done with a Bard 3D max mesh in the ventral hernia repair performed with ventral light.? The patient states that he had quite a prolonged recovery after that procedure. Most recent laboratory that we have available September 05 shows a hemoglobin of 12.7 with hematocrit 38.7.? BUN is 25 and creatinine 1.33 with a GFR of 52 [facility] [address] [place] [address] Abd Aortic/IVC Duplex scan 01/03/21924 MR#:? [id number] Name: CAROLINA SY [facility] #:[id number] :? 1940? 81From: Omid Perez MD Attending Dr: ? ? Mike Jay NP-CStatus:? REG CLI Ordering Dr:? Mike Jay NP ATMOSPHERIC TECHNICIAN-CDate:? 01/03/21?? [facility]?? Reason For Study: AAA history Aorta Measurements? Aorta Doppler Measurements Proximal aorta measures1.77 x 1.71cm. in cross- ? Peak systolic flow velocities within the proximal sectional axis. ? aorta measure 128.9 cm/sec. Proximal aorta measures1.73cm. in longitudinal? ? Peak systolic flow velocities within the mid aorta axis. ? measure 108.8 cm/sec. Mid aorta measures4.20 x 4.11cm. in cross-? Peak systolic flow velocities within the distal sectional axis. ? aorta measure 101.5 cm/sec. Mid aorta measures4.10cm. in longitudinal axis. Distal aorta measures1.92 x 1.94cm. in cross- sectional axis. Distal aorta measures1.90cm. in longitudinal axis. Left Iliac Artery Left iliac artery measures 1.31 x 1.29 cm. in the cross-sectional axis. Left iliac artery measures 1.28 cm. in the longitudinal axis. Peak systolic velocity in the left iliac artery measures 132.5 cm/sec. Right Iliac Artery Right iliac artery measures 1.17 x 1.20 cm. in the cross-sectional axis. Right iliac artery measures 1.21 cm. in the longitudinal axis. Peak systolic velocity in the right iliac artery measures 86.9 cm/sec. Procedure Aorta IVC Iliac vasculature or bypass grafts 60363. Exam performed in department. VL/Abd Aortic/IVC Duplex scan Interpretation Summary Proximal abdominal aorta 1.77 x 1.71 cm Mid abdominal aortic aneurysm 4.2 x 4.11 cm Right common iliac 1.17 x 1.2 cm in diameter Left common iliac 1.31 x 1.29 cm diameter ? Ordering Physician: Mike Jay Referring Physician: Dallas Reed M.D. Performed By: Felicita Jeronimo RVT 01/03/21 1036 Date Omid Perez MD [facility] [address] [place] [id number] Carotid Duplex Ultrasound 01/03/21 0936 MR#:? [id number] Name: CAROLINA SY [facility] #:[id number] :? 1940? 81From: Omid Perez MD Attending Dr: ? ? Mike Jay NP-CStatus:? REG CLI Ordering Dr:? Mike Jay NP ATMOSPHERIC TECHNICIAN-CDate:? 01/03/21?? Location:[facility] Admitted:?? Reason For Study: Carotid stenosis Rt. Velocities/BP ? Lt. Velocities/BP Prox CCA 69.5/20 cm/sec.? Prox CCA 108.3/17 cm/sec. Mid CCA 74.7/17.3 cm/sec. ? Mid CCA 157.6/33.4 cm/sec. Dist CCA 77.3/10.8 cm/sec.? Dist CCA 112/15.2 cm/sec. Prox ICA 425.3/111.5 cm/sec.? Prox ICA 127.9/33.6 cm/sec. Mid ICA 198.1/52.7 cm/sec.? Mid ICA 136.7/35.8 cm/sec. Dist ICA 143.2/47.4 cm/sec. ? Dist ICA 110.1/38.9 cm/sec. Rt. ICA/CCA = 5.69. ? Lt. ICA/CCA = 1.22. Prox ECA 204.6/10.7 cm/sec. ? Prox ECA 180.6/7.2 cm/sec. Rt. Vert. 75.4/24.3 cm/sec. ? Lt. Vert. 52/16.8 cm/sec. Right Extracranial There is homogeneous, smooth atherosclerotic plaque noted in the right common carotid artery. There is heterogeneous, irregular atherosclerotic plaque noted in the right internal carotid artery. There is heterogeneous, irregular atherosclerotic plaque noted in the right external carotid artery. Antegrade flow is noted in the right vertebral artery. Left Extracranial There is heterogeneous, smooth atherosclerotic plaque noted in the left common carotid artery. There is heterogeneous, irregular atherosclerotic plaque noted in the left internal carotid artery. There is heterogeneous, irregular atherosclerotic plaque noted in the left external carotid artery. Antegrade flow is noted in the left vertebral artery. Procedure Carotid Duplex 53752. This is a Carotid Duplex examination using B-mode, color flow and specral Doppler. Exam performed in department. VL/Carotid Duplex Ultrasound Interpretation Summary Irregular calcific plaque at the proximal right internal carotid artery with greater than 70% stenosis. Findings concerning for greater than 80% stenosis. Greater than 50% stenosis right external carotid artery Irregular calcific plaque with shadowing left proximal internal carotid artery with 50 to 69% stenosis Less than 50% stenosis left external carotid artery Patent and antegrade vertebrals bilaterally ? Ordering Physician: Mike Jay Referring Physician: Dallas Reed M.D. Performed By: Felicita Jeronimo RVT 01/03/21 1039 Date HPI HPI HPI: CAROLINA SY, is a 81 M who presents to the office today for? ROS General General: Yes weight change and fatigue; no appetite, colon cancer, breast cancer or weakness HEENT HEENT: Yes eye surgery; no difficulty swallowing, eye injury, swollen glands or hoarseness Endo Endocrine: No thyroid disease, diabetes mellitus, thyroid cancer, Hair loss, heat intolerance or cold intolerance Skin Skin: No rash or changing moles Musc Musculoskeletal: No back problems, arthritis, rheumatoid arthritis, gout or joint pain Cardio Cardiovascular: Yes atrial fibrillation and high blood pressure; no murmur, pacemaker, heart disease, heart attack, heart stent, palpitations, shortness of breat with exertion or chest pain Psych Psychiatric: Yes depression and anxiety; no hearing voices Resp Respiratory: No shortness of breath, No sleep apnea, No cough, No COPD, No asthma, No emphysema, No wheezing Gastro Gastrointestinal: No abdominal pain, No nausea or vomiting, No diarrhea, No constipation, No blood in stool, No acid reflux, No hemorrhoids, No ulcers, No gallbladder problem, No black,tarry stools Leo Hematologic: No blood thinners, No blood disorders, No bleeding, No anemia, No blood clots Neuro Neurologic: No system reviewed and no additional complaints, except as docu, No as per HPI, No abnormal walking, No abnormal hearing, No abnormal movements, No abnormal speech, No behavioral changes, No burning sensations, No confusion, No seizure-like activity, No unsteadiness, No dizziness, No localized weakness, No frequent falls, No headache(s), No lack of coordination, No loss of vision, No memory loss, No numbness, No other visual disturbances, No radiating pain, No restless legs, No sensory deficit, No fainting, No tingling, No tremor(s), No weakness, No other Exam Const General: cooperative, comfortable, no acute distress Nutritional Appearance: average body habitus, well nourished Orientation: alert, awake [facility] Head: normal to inspection Eyes General: appearance normal, both eyes and all related structures Neck Neck: normal visual inspection Carotids: normal carotid upstroke, no bruits Lymphatic: no lymphadenopathy noted Resp Effort & Inspection: normal respiratory effort Auscultation: clear to auscultation bilaterally Cardio Rate: regular rate Rhythm: regular rhythm Heart Sounds: no murmurs Other: Bilateral radial and brachial pulses 3+ Bilateral femoral pulses 3+ GI Palpation: soft, no hepatosplenomegaly Other: Aortic aneurysm is just palpable, nontender Musc Cervical Spine: normal cervical lordosis Neuro Cognition: normal cognition Extrem Other: 2+ bilateral lower extremity pitting edema, nontender Psych Affect: normal affect Assessment & Plan Problems 1. Abdominal aortic 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? I71.4 2. Chronic kidney disease, unspecified CKD stage? N18.9 3. Stenosis of right internal carotid artery? I65.21 Plan 81-year-old gentleman.? He currently has a 4.2 cm infrarenal abdominal aortic aneurysm.? It has increased in size from previous 3.67 cm.? I have explained him that at this point it does not require repair but clearly is demonstrating ev idence of enlargement and careful follow-up would be indicated.? I recommend abdominal aortic duplex imaging at 6 months and office follow-up. He has asymptomatic high-grade stenosis of his right internal carotid.? I do recommend that we obtain additional imaging.? He does have stage IIIa chronic renal insufficiency.? We will want to recheck his laboratory.? He may require gentle fluid hydration of 500 cc of saline prior to the testing.? We will need to keep careful watch of this so as to not create fluid overload. I have discussed with him interventional techniques regarding his right carotid in the form of a right carotid endarterectomy with patch angioplasty in comparison to right carotid artery stenting.? Because of the slightly increase risk of stroke with endovascular stenting in an octogenarian I am currently proposing him surgical intervention.? I would like to use the additional imaging for further clarification.? I will then have him return to the office for additional discussion. Unfortunately it appears that he is intolerant to statin medications. He has had an opportunity to ask and have questions answered.? I appreciate the opportunity of assisting with surgical care.? We will repeat laboratory and then pursue further investigation as indicated.? Follow-up appointment is scheduled. Copy: Mike Jay CNP and Dr. Dallas Perez M.D., F.A.C.S. Orders ?Orders: ? Comprehensive Metabolic Profil Today I65.29, Z01.818 ? ? CTA Neck W/WO Contrast Today I65.29 ? ? CBC-Complete Blood Cnt No Diff Today I65.29, Z01.818 ? ? Abd Aortic/IVC Duplex scan 6 Months I71.4 ? ? Lipid Profile Today I65.29 ? Coding Level of Care Code 24573 Diagnoses Abdominal aortic 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? I71.4 Chronic kidney disease, unspecified CKD stage? N18.9 ??Chronic kidney disease stage: unspecified stage Stenosis of right internal carotid artery? I65.21 ROS <Germania Shoemaker - Last Filed: 01/14/21 16:01> General General: Yes weight change and fatigue;? No appetite, colon cancer, breast cancer or weakness HEENT HEENT: Yes eye surgery;? No difficulty swallowing, eye injury, swollen glands or hoarseness Endo Endocrine: No thyroid disease, diabetes mellitus, thyroid cancer, Hair loss, heat intolerance or cold intolerance Skin Skin: No rash or changing moles Musc Musculoskeletal: No back problems, arthritis, rheumatoid arthritis, gout or joint pain Cardio Cardiovascular: Yes atrial fibrillation and high blood pressure;? No murmur, pacemaker, heart disease, heart attack, heart stent, palpitations, shortness of breat with exertion or chest pain Psych Psychiatric: Yes depression and anxiety;? No hearing voices Resp Respiratory: No shortness of breath, No sleep apnea, No cough, No COPD, No asthma, No emphysema and No wheezing Gastro Gastrointestinal: No abdominal pain, No nausea or vomiting, No diarrhea, No constipation, No blood in stool, No acid reflux, No hemorrhoids, No ulcers, No gallbladder problem and No black,tarry stools Leo Hematologic: No blood thinners, No blood disorders, No bleeding, No anemia and No blood clots Neuro Neurologic: No system reviewed and no additional complaints, except as documented, No as per HPI, No abnormal gait, No abnormal hearing, No abnormal movements, No abnormal speech, No behavioral changes, No burning sensations, No confusion, No convulsions, No disequilibrium, No dizziness, No localized weakness, No frequent falls, No headache(s), No lack of coordination, No loss of vision, No memory loss, No numbness, No other visual disturbances, No radicular pain, No restless legs, No sensory deficit, No syncope, No tingling, No tremor(s), No weakness and No other Exam <Germania Shoemaker - Last Filed: 01/14/21 16:01> Cardio Heart Sounds: no murmurs <Dr. Omid Perez MD - Last Filed: 01/14/21 16:18> Assessment and Plan (1) Stenosis of right internal carotid artery: Plan Details Additional Comments: Based upon carotid duplex imaging and CTA of the right carotid there is greater than 70% stenosis.? Peak systolic velocity on duplex exam was greater than 400 cm/s. The patient also has a 4.2 x 4.11 cm abdominal aortic aneurysm. As anticipating that his abdominal aortic aneurysm is going to enlarge he could potentially get to the point where he has simultaneous carotid and aortic aneurysm issues.? He already appears to have high-grade stenosis of his right internal carotid.? I propose for him a right carotid endarterectomy with bovine patch angioplasty and arterial line monitoring.? He is aware of the technique, benefit, risk, alternatives.? He has had an opportunity to ask and have questions answered. We will schedule and proceed at his discretion.? I appreciate the ongoing opportunity of assisting with the surgical care. Copy: Dr. Dallas Perez M.D., F.A.C.S. Coding Level of Care Code Off vis,est,level 2 Diagnoses Stenosis of right internal carotid artery? I65.21 I have re-examined the patient. There are no clinical changes since date of exam.
--- NOTE | 2021-01-20 06:31 | OP.PCM_ITS ---
Problems Associated Problem List Diagnoses (1) Stenosis of right internal carotid artery: Report of Operation Date of Procedure: 01/20/21 Pre-Operative Diagnosis: Critical stenosis right extracranial internal carotid Post-Operative Diagnosis: Same Surgery/Procedure Performed:: Right radial arterial line placement Right carotid endarterectomy with bovine patch angioplasty Dee, Lot [id number] PN [id number], Expiry: Description of Surgical Findings:: Timeout and informed consent was obtained. Garrick test performed of the right hand demonstrating adequate ulnar flow. The right wrist was gently extended prepped with Betadine. Under ultrasound guidance 1% lidocaine was instilled as a local and static. 1 cc was used. A 20-gauge Arrow kit Angiocath was advanced under ultrasound guidance into the artery and easily advanced with Seldinger wire. It was secured skin with 3-0 silk. It was connected to pressure tubing. OpSite dressing applied. Nel wr ap dressing was applied. Good waveform was obtained. There was no apparent complication. The patient tolerated the procedure well with a viable hand the completion. Timeout and informed consent was obtained. The patient was taken to the operating room. He was placed supine on the table. He underwent general endotracheal intubation anesthesia. The right neck was sterilely prepped and draped. An oblique incision was made along the anterior border the sternocleidomastoid. Sharp dissection was performed down through the subcutaneous tissue. The platysma was incised. The sternocleidomastoid was reflected laterally. Dissection performed directly down upon the carotid bulb. Sharp and blunt dissection was used to identify the common carotid carotid bulb internal carotid and external carotid arteries. A Menjivar tie of Dacron tape was placed around the common carotid artery. A Dacron tape and Johanna tourniquet was placed to the internal carotid artery. The vessel loop was placed around the external carotid artery. A Menjivar tie of 3-0 Vicryl around the superior thyroid artery. The ascending pharyngeal was also identified and a Menjivar tie of 3-0 Vicryl placed. The patient then received 8000 units of heparin. Based upon ACT measurements he received another 500 units of heparin during the procedure. Bae clamp was placed on the internal carotid and peripheral vascular clamps on the common carotid and external carotid. An 11 blade was used to make an arteriotomy which was extended with Menjivar scissors. A very tight plaque was encountered with evidence of plaque hemorrhage. A #10 USCI style shunt was placed cephalad and then proximally. An endarterectomy was performed at the layer of the external elastic lamina. The plaque was sharply transected the common carotid and carefully feathered at the internal carotid and an inversion enterectomy was performed of the external carotid debris was carefully removed. A Vascu-Guard bovine patch was shaped to form and a patch angioplasty performed with a running 6-0 Prolene. Prior to completion the shunt was removed the vessel was irrigated the patch angioplasty was completed. Clamps were removed from the external carotid common carotid and finally the internal carotid. Repair suture for the patch of 7-0 Prolene was placed. Hemostasis was intact. There was good flow noted. The wound was closed with a platysmal layer running 3-0 Vicryl. The skin edges approximated running septic or 5-0 Vicryl. The periincisional area was anesthetized with 20 cc of 0.5% Marcaine. Steri-Strips Telfa and tape dressings applied. Sponge and instrument and needle counts were reported to the surgeon to be correct. Specimens plaque. Drains none. Blood loss 220 cc. The patient was allowed to wake on the table. Appeared to be neurologically intact. He was taken to the recovery room in satisfactory condition. Omid Perez M.D., F.A.C.S. Type of Anesthesia: General Anesthesiologist: Luis Daniel Dean
[2021-01-20] MEDS: Lactated Ringers 1,000 ML 15 ML IV ×3 (06:42→16:05)
--- NOTE | 2021-01-20 06:56 | PCM.DC ---
Discharge Instructions Outpatient Procedure Reason For Visit: RT CAROTID ENDARERECTOMY Diet Discharge Diet: Light diet - advance as tolerated Activity Discharge Activity: May Not Shower (May shower starting on ) Lifting Restrictions: 10 pound weight lifting restriction Dressing / Incision Call your doctor if your incision/area has: Continuous Slow Oozing, Sudden Increased Bleeding and Increased Pain/ Swelling Call your doctor if you observe: Fever of 101 or Higher and Fainting spells Additional Dressing/Incision Instructions:: You may remove the Steri-Strips in 1 week Follow Up Care Please Follow Up With: Omid Perez MD When: Call [phone] for follow-up in approximately 10 days Test Results: Test results from this visit will be discussed in further detail at your follow-up appointment, if applicable. Discharge Plan Admission Admit Date/Time: 01/20/21 05:24 Attending Provider: Omid Perez Primary Care Provider: Dallas Reed Discharge Orders/Prescriptions Prescriptions: No Action coenzyme Q10 100 mg capsule 200 mg PO DAILY RF: 0 garlic 1,000 mg capsule 1,000 mg PO DAILY RF: 0 cholecalciferol (vitamin D3) 2,000 unit capsule 2,000 unit PO DAILY RF: 0 grape seed extract 50 mg capsule 50 mg capsule 100 mg PO DAILY RF: 0 multivitamin Tablet 1 tab PO DAILY RF: 0 furosemide 20 mg tablet 20 mg PO DAILY RF: 0 losartan 100 mg tablet 100 mg PO DAILY RF: 0 glucosamine-chondroitin 250 mg-200 mg tablet 250-200 mg tablet 2 tab PO DAILY RF: 0 magnesium 200 mg tablet 400 mg PO DAILY RF: 0 ascorbic acid (vitamin C) 500 mg capsule 4,000 mg PO DAILY RF: 0 carvedilol 12.5 mg tablet 12.5 mg PO BID RF: 0 biotin 5 mg capsule 5 mg PO DAILY RF: 0 colestipol [Colestid] 1 gram tablet 1 g PO BID RF: 0 hydralazine 100 mg tablet 100 mg PO Q6H RF: 0 [id number] 1 EACH capsule 1 ea PO DAILY RF: 0 doxazosin 4 mg tablet 8 mg PO QHS RF: 0 ivermectin [Stromectol] 3 mg tablet 3 mg PO DAILY RF: 0 aspirin [Adult Aspirin Regimen] 81 mg tablet,delayed release (DR/EC) 81 mg PO QDAY RF: 0 Other Ambulatory Orders: 12 Lead EKG (Routine) Location: None Selected Ordered By: Dr. Dustin Medina
[2021-01-20] MEDS: Cefazolin 2 GM in 0.9% Normal Saline 100 ML IV ×2 (07:19→16:18)
--- NOTE | 2021-01-20 07:30 | PLAQ_PTH ---
PATIENT: CAROLINA SY LOC: [facility] U#:[id number] AGE/SX: 81/M ROOM: [facility] RE01/20/[address]: Dr. Omid Perez MD : 1940 BED: 1 DIS: 01/21/2021 SPEC #: [id number] RECD: 01/20/21 10:05 STATUS: EDNA ROMERO #: [id number] RYLIE: 01/20/21 07:[address]: Omid Perez DEPT: SURGICAL PATHOLOGY RECD BY: Marialuisa Moreira ENTERED: 01/20/21 11:10 SP TYPE: PLAQUE OTHR DR: Dr. Dallas Reed MD Tissues: PLAQUE Procedures: Decalcification bone/plaque Surgery Specimen Level III HEADER OPERATION: Carotid endarterectomy with patch angioplasty and arterial PRE-OP DIAGNOSIS: Stenosis of right internal carotid artery TISSUE SUBMITTED: Right carotid plaque MICROSCOPIC DIAGNOSIS Right carotid plaque, endarterectomy: Calcified atheromatous plaque consistent with severe stenosis. AM:mack 01/23/2021 GROSS DESCRIPTION Received in fixative is one container labeled with the patient's name and designated right carotid plaque. The specimen consists of an elongated fragment of gritty, dunn-yellow tissue measuring 3 x 1.5 x 1.5 cm. The specimen is sectioned and totally submitted in one cassette after decalcification. / AM:mack 01/20/21 TC:5 CPT: 06819, 54963
[2021-01-20] MEDS: Heparin Injection (Vial) 5,000 UNIT/ML VIAL 5000 UNIT (07:48)
[2021-01-20] MEDS: Bupivacaine Mpf 0.5% 30 ML VIAL ×2 (09:22→17:15)
--- NOTE | 2021-01-20 11:06 | SUR.PHASEI ---
This nurse noted swelling at right neck at 1030. Soft and non tender to patient. Pressure held for 30 minutes until 1100. Scant bloody drainage noted at right neck dressing. Again outlined from arrival to PACU. Patient VSS. No complaints of pain. This nurse to continue to monitor.
--- NOTE | 2021-01-20 11:23 | SUR.PHASEI ---
Dressing changed per Dr. Perez's order. telfa and micropore tape. patient tolerated.
--- NOTE | 2021-01-20 15:13 | PN_ITS ---
Subjective Subjective: Called to see patient regarding right neck swelling. I have previously evaluated the patient and the recovery room postoperatively. I again rechecked them at the request of nursing staff. I have received several updated communications from the PACU. The most recent communication was at the right neck was stable. Upon arrival to the PCU I have again received an urgent communication due to concerned about right neck swelling Objective Data Objective Data Vital Signs: Vital Signs Temp Pulse Resp BP Pulse Ox 97.6 F L 63 18 102/63 97 01/20/21 14:30 01/20/21 14:30 01/20/21 14:30 01/20/21 14:30 01/20/21 14:30 Oxygen Delivery Method Room Air Weight: 184 lb 11.958 oz Body Mass Index (BMI) 28.0 Intake & Output: Intake and Output for Last 24 Hours 01/18/21 01/19/21 01/20/21 23:59 23:59 23:59 Intake Total 1110 / 1110 Balance 1110 / 1110 Lab / Micro Data Result Diagrams: 01/16/21 13:59 01/16/21 13:59 Micro: Microbiology 01/16/21 13:40 Interface Orders SARS-CoV-2 Antigen (Rapid) - Final Physical Exam Neck Neck Narrative: Right neck demonstrates moderate swelling. It is superficially supple, there does appear to be some tracheal deviation to the left. There is no compromise of the airway. The patient however does state that he has some swallowing difficulties. He has only been allowed to have sips of water Assessment & Plan Assessment/Plan (1) Postoperative wound hematoma: Status: Acute Plan: Patient with a postoperative right carotid neck hematoma. It is difficult for me to assess as to whether this is actually progressing. The patient has no res piratory embarrassment at this time. I do have concerns that if he does progress that this could cause respiratory compromise. It is clear that nursing staff is uncomfortable with the current situation. Based upon that and my reliance upon them to provide a clinical assessment I am recommending the patient that we return him to the operating room for evacuation of the hematoma. He is aware of technique, benefit, risk, alternatives. We will proceed as OR timing permits. Omid Perez M.D., F.A.C.S.
--- NOTE | 2021-01-20 17:20 | PCM.OPRPT ---
Problems Associated Problem List Diagnoses (1) Postoperative wound hematoma: Report of Operation Date of Procedure: 01/20/21 Pre-Operative Diagnosis: Right neck hematoma Post-Operative Diagnosis: Right neck hematoma Surgery/Procedure Performed:: Right neck exploration with evacuation of hematoma Description of Surgical Findings:: Timeout and informed consent was obtained. 81-year-old gentleman was taken to the operating placed on the table underwent general anesthesia. Ancef 2 g were given intravenously. The right neck was sterilely prepped and draped. The incision was reopened. There was some liquidy blood just beneath the platysma. Although the external jugular tie was removed during the reopening it was not felt that this was the source of the bleeding. The external jugular was resecured with the 3-0 Vicryl ligature. Deep letter expiration revealed some thrombus in that the wound. It was removed. There was diffuse soft tissue oozing from all surfaces. Upon final removal of the clot off of the patch there was some slight superior needle hole foods. I secured that with couple [id number] sutures of 7-0 Prolene but it was not clear that that was actually the source of any significant bleeding as there was not any significant area of thrombus in that area. I asked anesthesia to increase her blood pressure and it was apparent that all generalized tissue areas seem to have a diffuse ooze more like a medical oozing. There was no distinct single arterial or venous bleeder. The wound was irrigated was aspirated free. After very careful inspection of all surfaces I did place FloSeal in the base of the wound. I then reapproximated the platysma with a running 3-0 Vicryl. The skin edges reapproximated running septic or 5-0 Vicryl. The patient was allowed to maintain his normal blood pressure. The periincisional area anesthetized with 13 cc of 0.5% Marcaine. Sponge and instrument and needle counts reported the surgeon be correct. New blood loss was less than 20 cc. Small amount of thrombus was easily removed. At the time of the procedure I did not detect any tracheal deviation. Dr. Christianson had no difficulties with intubation it did not see any evidence of respiratory compromise. The skin edges appear to be oozy at the initiation of the procedure. The skin edges appear to be dry at the completion of the procedure. Direct pressure was held. He was taken to the recovery room in satisfactory condition without apparent complication. Specimens none. Drains none. New blood loss 20 cc. Findings suspicious for diffuse medical oozing. Possible oral supplement or platelet effect. Omid Perez M.D., F.A.C.S. Type of Anesthesia: General Anesthesiologist: Dieter Christianson Drains: none Estimated Blood Loss (mL): 20cc
--- NOTE | 2021-01-20 20:48 | NURSING ---
Pt. arrives to PCU 102 from surgery with PACU nurse.
[2021-01-20] MEDS: Lactated Ringers 1,000 ML 75 ML IV (21:00)
[2021-01-20] MEDS: Doxazosin 4 MG Tablet 8 MG PO (21:31)
[2021-01-20] MEDS: Carvedilol 12.5 MG Tablet PO (21:31)
[2021-01-20] MEDS: Cefazolin 1 GM/50 ML BAG IV (23:58)
[2021-01-21] VITALS (11 sets, daily range): BP systolic 107–128; BP diastolic 49–60; PULSE 62–110; RESP 12–18; TEMP 36.3–36.8; O2SAT 93–97
[2021-01-21] MEDS: hydrALAZINE 50 MG Tablet 100 MG PO ×2 (00:01→05:25)
--- NOTE | 2021-01-21 05:41 | PN.SURG_ITS ---
Subjective Subjective: Patient complains of a sore throat secondary to intubation. He notes that his right neck is feeling improved. He has no other specific complaints. Motor or sensory appears to be solid Objective Data Objective Data Vital Signs: Vital Signs Temp Pulse Resp BP Pulse Ox 98.2 F 64 14 120/56 L 93 01/21/21 03:00 01/21/21 05:25 01/21/21 05:00 01/21/21 05:00 01/21/21 05:00 Oxygen Delivery Method Room Air Weight: 184 lb 11.958 oz Body Mass Index (BMI) 28.0 Intake & Output: Intake and Output for Last 24 Hours 01/19/21 01/20/21 01/21/21 23:59 23:59 23:59 Intake Total 2566.25 / 2566.25 597.5 / 597.5 Output Total 650 / 650 100 / 100 Balance 1916.25 / 191.25 497.5 / 497.5 Lab / Micro Data Result Diagrams: 01/16/21 13:59 01/16/21 13:59 Micro: Microbiology 01/16/21 13:40 Interface Orders SARS-CoV-2 Antigen (Rapid) - Final Physical Exam Neck Neck Narrative: Right neck much softer, clean dry, no current drainage. Incision is very appropriate. Neuro Neuro Narrative: Patient is alert, talkative, upper lower extremities equal and symmetric Assessment & Plan Assessment/Plan (1) Stenosis of right internal carotid artery: Status: Acute Code(s): I65.21 - Occlusion and stenosis of right carotid artery Plan: Patient is making excellent progress. Will initiate diet. KVO IV fluids. Resolved the postoperative intensive observation status. Mobilize the patient. I anticipate discharge later this morning. I suspect that the patient had medical bleeding from a combination of his low- dose aspirin and multiple supplements including omega-3's and garlic and grapeseed adding to a combined anticoagulated effect. Clearly the local and national shortage of protamine also a concern as a concerted effort was used not to utilize it in this situation. The FloSeal clearly of benefit on the second exploration to handle the diffuse soft tissue ooz. Omid Perez M.D., F.A.C.S.
[2021-01-21] MEDS: Carvedilol 12.5 MG Tablet PO (08:52)
[2021-01-21] MEDS: Aspirin E.C. 81 MG Tablet PO (08:52)
[2021-01-21] MEDS: Losartan Potassium 100 MG Tablet PO (08:52)
[2021-01-21] MEDS: Furosemide 20 MG Tablet PO (08:54)
--- NOTE | 2021-01-21 09:37 | CASEMGMT ---
CHRISTIANO GAYLE Assessment: Face to Face with pt for initial transition planning/care coordination assessment. RN NALINI introduced self and role at [facility], pt voices understanding and consents to assessment. Pt is A/O x4 and answers all questions appropriately at this time. Pt sitting up in chair watching tv in no distress. Care providers, pharmacy, and demographics verified/updated. Admitting Dx: Rt carotid endarerectomy PCP:Derek Specialists: Destinee Lacy, cardio; Page [facility] scopes Preferred Pharmacy: [facility]: [employer] Prescription Benefit: yes LW/HPOA: Pt has a LW and his DPOA is his Libra Camejo. It is on file at [facility]. LNOK: Libra Living Arrangements: Pt lives with in a two story house with 2 steps to enter. Pt states bedroom and bathroom are on main level. Pt is I in ADL's. Pt denies concerns at home. Transportation: Pt drives self. Denies concerns with transportation. DME/HHC/SNF: Pt has a walker, cane, BSC and elevated toilet seat. He has not had any previous HHC. Pt has had a short stay at [facility] after a surgery. Pt states no concerns with going home at time of dc. Pt states no further concerns/needs. CM to follow. Advised pt to ask CM if any further question/concerns/needs arise, voices understanding. Pt Goal: Home Plan: Home with support.
--- NOTE | 2021-01-21 10:31 | PHA.DC.MR ---
Pharmacy Service has performed discharge medication reconciliation for this patient. The patient's discharge medication list was reviewed for discrepancies and discrepancies were resolved. Home Medications [id number] 1 ea PO DAILY 07/26/15 furosemide 20 mg tablet 20 mg PO DAILY 05/17/19 glucosamine-chondroitin 250 mg-200 mg tablet 2 tab PO DAILY tab 05/17/19 losartan 100 mg tablet 100 mg PO DAILY 05/17/19 magnesium 200 mg tablet 400 mg PO DAILY tab 05/17/19 cholecalciferol (vitamin D3) 50 mcg (2,000 unit) capsule 2,000 unit PO DAILY 05/18/19 coenzyme Q10 100 mg capsule 200 mg PO DAILY cap 05/18/19 doxazosin 4 mg tablet 8 mg PO QHS tab 05/18/19 garlic 1,000 mg capsule 1,000 mg PO DAILY cap 05/18/19 grape seed extract 50 mg capsule 100 mg PO DAILY cap 05/18/19 multivitamin 1 tab PO DAILY 05/18/19 biotin 5 mg capsule 5 mg PO DAILY 07/24/19 ascorbic acid (vitamin C) 500 mg capsule 4,000 mg PO DAILY cap 02/14/20 colestipol 1 gram tablet 1 g PO BID tab 02/14/20 hydralazine 100 mg tablet 100 mg PO Q6H tab 02/14/20 carvedilol 12.5 mg tablet 12.5 mg PO BID tab 05/14/20 aspirin [Adult Aspirin Regimen] 81 mg PO QDAY 01/16/21 ivermectin [Stromectol] 3 mg PO DAILY 01/16/21
[2021-01-21 10:34] LABS: ACT Activated Clotting Time 147 sec (74-137)
[2021-01-21 10:38] LABS: ACT Activated Clotting Time 219 sec (74-137)
[2021-01-21 10:39] LABS: ACT Activated Clotting Time 208 sec (74-137)
[2021-01-21 10:39] LABS: ACT Activated Clotting Time 213 sec (74-137)
== END 2021-01-21 11:25 | disposition home or self-care (01) | DRG 38 ==
LOC: ACINP 05:54 → PCU 15:00
PROVIDERS: Anesthesiology; Admitting Provider Surgery; PCP Internal Medicine; Referring Provider Surgery; Visit Provider Surgery
PROC: 03CK0ZZ Extirpation of Matter from Right Internal Carotid Artery, Open Approach (ICD-10-PCS; CPT 35301; principal; 2021-01-20 07:10)
DX: I65.23 Occlusion and stenosis of bilateral carotid arteries (principal); I13.0 Hypertensive heart and chronic kidney disease with heart failure and stage 1 through stage 4 chronic kidney disease, or unspecified chronic kidney disease; I50.32 Chronic diastolic (congestive) heart failure; I97.638 Postprocedural hematoma of a circulatory system organ or structure following other circulatory system procedure; R13.10 Dysphagia, unspecified; Y83.8 Other surgical procedures as the cause of abnormal reaction of the patient, or of later complication, without mention of misadventure at the time of the procedure; Y92.239 Unspecified place in hospital as the place of occurrence of the external cause; N18.31 Chronic kidney disease, stage 3a; I71.4 Abdominal aortic aneurysm, without rupture; Z20.822 Contact with and (suspected) exposure to COVID-19; E78.5 Hyperlipidemia, unspecified; Z79.82 Long term (current) use of aspirin; Z79.899 Other long term (current) drug therapy; Z87.891 Personal history of nicotine dependence; Z96.649 Presence of unspecified artificial hip joint; Z96.652 Presence of left artificial knee joint
CPT/HCPCS: 36415; 80048; 80076; 85027; 85347; 85610; 85730; 87426; 88304; 88311; 93005; 99251; C9803; J7040; J7120; G0463; J2405

== ENCOUNTER → 2021-02-20 13:38 | Outpatient (CLI) | payer MEDICARE, OTHER, SELFPAY ==
[2021-01-20 14:49] VITALS: BMI 28.0
--- NOTE | 2021-02-20 13:40 | CDU_ITS ---
Reason For Study: Carotid stenosis Rt. Velocities/BP Lt. Velocities/BP Prox CCA 87.8/10.8 cm/sec. Prox CCA 103.3/19.3 cm/sec. Mid CCA 99.9/15.1 cm/sec. Mid CCA 139.8/26.6 cm/sec. Dist CCA 93.4/19 cm/sec. Dist CCA 97.8/15.7 cm/sec. Prox ICA 104.7/17.3 cm/sec. Prox ICA 128.5/22.3 cm/sec. Mid ICA 71.2/17.7 cm/sec. Mid ICA 130.8/32.1 cm/sec. Dist ICA 112.5/26.7 cm/sec. Dist ICA 72/19.2 cm/sec. Rt. ICA/CCA = 1.20. Lt. ICA/CCA = 1.27. Prox ECA 98.6/7.3 cm/sec. Prox ECA 190.6 cm/sec. Rt. Vert. 52.2/15.7 cm/sec. Lt. Vert. 50.4/12 cm/sec. Right Extracranial There is homogeneous, smooth atherosclerotic plaque noted in the right common carotid artery. There is intimal thickening but no significant atherosclerotic plaque noted in the right internal carotid artery. There is heterogeneous, irregular atherosclerotic plaque noted in the right external carotid artery. Antegrade flow is noted in the right vertebral artery. Left Extracranial There is heterogeneous, smooth atherosclerotic plaque noted in the left common carotid artery. There is heterogeneous, irregular atherosclerotic plaque noted in the left internal carotid artery. There is heterogeneous, irregular atherosclerotic plaque noted in the left external carotid artery. Antegrade flow is noted in the left vertebral artery. Procedure Carotid Duplex 78699. This is a Carotid Duplex examination using B-mode, color flow and specral Doppler. Exam performed in department. VL/Carotid Duplex Ultrasound Interpretation Summary Widely patent postoperative changes right carotid bulb and proximal internal ca rotid artery with less than the 50% stenosis of the right internal carotid artery Less than 50% stenosis right external carotid artery Irregular calcific plaque with shadowing left carotid bulb and proximal interna l carotid artery with 50 to 69% stenosis of the left internal carotid artery Less than 50% stenosis left external carotid artery Patent and antegrade vertebral arteries bilaterally Marked improvement of the right carotid from the previous examination of January 03, 2021 with no significant change on the left Ordering Physician: Omid Perez Referring Physician: Dallas Reed M.D. Performed By: Felicita Jeronimo RVT and Student
== END ==
PROVIDERS: PCP Internal Medicine; Referring Provider Surgery; Visit Provider Surgery
DX: I65.21 Occlusion and stenosis of right carotid artery (principal)
CPT/HCPCS: 93880

== ENCOUNTER → 2022-01-12 | Outpatient (CLI) | payer MEDICARE, OTHER, SELFPAY ==
--- NOTE | 2022-01-12 08:13 | AAVD_ITS ---
Reason For Study: AAA Aorta Measurements Aorta Doppler Measurements Proximal aorta measures1.63cm x 1.72cm. in cross- Peak systolic flow velocities within the proximal sectional axis. aorta measure 82 cm/sec. Proximal aorta measures1.66cm. in longitudinal Peak systolic flow velocities within the mid aorta axis. measure 106 cm/sec. Mid aorta measures4.53cm x 4.22cm. in cross- Peak systolic flow velocities within the distal sectional axis. aorta measure 62 cm/sec. Mid aorta measures4.31cm. in longitudinal axis. Distal aorta measures2.38cm x 2.38cm. in cross- sectional axis. Distal aorta measures1.90cm. in longitudinal axis. Left Iliac Artery Left iliac artery measures 1.19cm x 1.21 cm. in the cross-sectional axis. Left iliac artery measures 1.32 cm. in the longitudinal axis. Peak systolic velocity in the left iliac artery measures 111 cm/sec. Right Iliac Artery Right iliac artery measures 1.26cm x 1.16 cm. in the cross-sectional axis. Right iliac artery measures 1.18 cm. in the longitudinal axis. Peak systolic velocity in the right iliac artery measures 91 cm/sec. VL/Abd Aortic/IVC Duplex scan Interpretation Summary Maximal aortic diameter in the mid aorta at 4.53 x 4.22 cm consistent with a ab dominal aortic aneurysm. Left common iliac artery normal at 1.19 x 1.21 cm in diameter Right common neck artery normal at 1.26 x 1.16 cm in diameter Previous ultrasound of January 03, 2021 at the abdominal aortic aneurysm at 4.2 x 4.11 cm in diameter Ordering Physician: Omid Perez Referring Physician: Dallas Reed Performed By: Marianne Jay, RDCS, RVT
== END | disposition home or self-care (01) ==
LOC: CVS 08:12
PROVIDERS: PCP Internal Medicine; Referring Provider Surgery; Visit Provider Surgery
DX: I71.4 Abdominal aortic aneurysm, without rupture (principal)
CPT/HCPCS: 93978

== ENCOUNTER → 2023-01-19 | Outpatient (CLI) | payer MEDICARE, OTHER, SELFPAY ==
--- NOTE | 2023-01-19 09:20 | CDU_ITS ---
Reason For Study: HX Rt Endarterectomy Rt. Velocities/BP Lt. Velocities/BP Prox CCA 76.1/19.5 cm/sec. Prox CCA 121.7/22.2 cm/sec. Mid CCA 98.5/29.2 cm/sec. Mid CCA 90.4/29.0 cm/sec. Dist CCA 73.2/24.8 cm/sec. Dist CCA 94.1/25.3 cm/sec. Prox ICA 86.4/19.3 cm/sec. Prox ICA 99.0/33.9 cm/sec. Mid ICA 95.2/34.7 cm/sec. Mid ICA 137.4/38.6 cm/sec. Dist ICA 83.3/32.1 cm/sec. Dist ICA 104.5/41.3 cm/sec. Rt. ICA/CCA = 1.0. Lt. ICA/CCA = 1.5. Prox ECA 62.0/8.1 cm/sec. Prox ECA 163.8/14.5 cm/sec. Rt. Vert. 72.0/24.1 cm/sec. Lt. Vert. 71.0/27.0 cm/sec. Right Extracranial There is heterogeneous, irregular atherosclerotic plaque noted in the right common carotid artery. There is homogeneous, irregular atherosclerotic plaque noted in the right internal carotid artery. There is homogeneous, irregular atherosclerotic plaque noted in the right external carotid artery. Antegrade flow is noted in the right vertebral artery. Left Extracranial There is heterogeneous, irregular atherosclerotic plaque noted in the left common carotid artery. There is heterogeneous, irregular atherosclerotic plaque noted in the left internal carotid artery. There is heterogeneous, irregular atherosclerotic plaque noted in the left external carotid artery. Antegrade flow is noted in the left vertebral artery. Procedure Carotid Duplex [id number]. This is a Carotid Duplex examination using B-mode, color flow and specral Doppler. The exam was diagnostic. Exam performed in department. VL/Carotid Duplex Ultrasound Interpretation Summary Widely patent postoperative changes of the right carotid bulb and proximal inte rnal carotid artery with less than 50% stenosis Less than 50% stenosis right external carotid artery Calcific plaque with shadowing at the proximal left internal carotid artery wit h 50 to 69% stenosis Less than 50% stenosis left external carotid artery Patent and antegrade vertebral arteries bilaterally No change from January 03, 2021 Ordering Physician: Omid Perez Referring Physician: Dallas Reed Performed By: Yuan Menon RVT
--- NOTE | 2023-01-19 09:20 | AAVD_ITS ---
Reason For Study: AAA Aorta Measurements Aorta Doppler Measurements Proximal aorta measures2.23 x 2.12cm. in cross- Peak systolic flow velocities within the proximal sectional axis. aorta measure 103.1 cm/sec. Proximal aorta measures2.23cm. in longitudinal Peak systolic flow velocities within the mid aorta axis. measure 122.7 cm/sec. Mid aorta measures4.67 x 4.82cm. in cross- Peak systolic flow velocities within the distal sectional axis. aorta measure 93.8 cm/sec. Mid aorta measures4.82cm. in longitudinal axis. Distal aorta measures2.39 x 2.36cm. in cross- sectional axis. Distal aorta measures2.06cm. in longitudinal axis. Left Iliac Artery Left iliac artery measures 1.30 x 1.23 cm. in the cross-sectional axis. Left iliac artery measures 1.26 cm. in the longitudinal axis. Peak systolic velocity in the left iliac artery measures 113.0 cm/sec. Right Iliac Artery Right iliac artery measures 1.21 x 1.27 cm. in the cross-sectional axis. Right iliac artery measures 1.21 cm. in the longitudinal axis. Peak systolic velocity in the right iliac artery measures 54.3 cm/sec. Procedure Aorta IVC Iliac vasculature or bypass grafts 66034. The exam was diagnostic. Exam performed in department. VL/Abd Aortic/IVC Duplex scan Interpretation Summary Abdominal aortic aneurysm measuring 4.67 x 4.82 cm in diameter in the mid abdom inal aorta. Left common iliac artery ectatic at 1.3 x 1.23 cm diameter Right common iliac normal at 1.21 x 1.27 cm diameter On January 12, 2022 the abdominal aortic aneurysm measured 4.53 x 4.22 cm in diam eter Ordering Physician: Omid Perez MD Referring Physician: Dallas Reed Performed By: Yuan Menon, RVT
== END | disposition home or self-care (01) ==
LOC: CVS 08:58
PROVIDERS: PCP Internal Medicine; Referring Provider Surgery; Visit Provider Surgery
DX: I65.21 Occlusion and stenosis of right carotid artery (principal); I71.40 Abdominal aortic aneurysm, without rupture, unspecified; Z98.890 Other specified postprocedural states; I10 Essential (primary) hypertension
CPT/HCPCS: 93880; 93978

== ENCOUNTER → 2023-02-23 | Outpatient (CLI) | payer MEDICARE, OTHER, SELFPAY ==
[2023-02-23 10:34] LABS: Anion Gap 3 (5-15); BUN 34 mg/dL (7-18); BUN/Creat Ratio 24.8 RATIO (10-20); Calcium,Total 9.2 mg/dL (8.5-10.1); Chloride 107 mmol/L (98-107); Creatinine, Serum 1.37 mg/dL (0.70-1.30); EST Glomerular Filtration Rate 53 mL/min (>60); Est Glom Filt Rate - Afr Amer 64 mL/min (>60); Glucose 92 mg/dL (74-106); Potassium 3.6 mmol/L (3.5-5.1); Sodium Level 140 mmol/L (136-145)
== END | disposition home or self-care (01) ==
LOC: PAVLAB 09:54
PROVIDERS: PCP Internal Medicine; Referring Provider Surgery; Visit Provider Surgery
DX: Z01.810 Encounter for preprocedural cardiovascular examination (principal)
CPT/HCPCS: 36415; 80048

== ENCOUNTER → 2023-02-25 | Outpatient (CLI) | payer MEDICARE, OTHER, SELFPAY ==
--- NOTE | 2023-02-25 13:51 | CT_ITS ---
STUDY: CTA ABDOMEN AND PELVIS WITH AND WITHOUT CONTRAST REASON FOR EXAM: Male, 83 years old. AAA RADIATION DOSAGE (If Supplied By Facility): CTDIvol = ( 22.68 ) mGy, DLP = ( 477.60 ) mGycm TECHNIQUE: Transaxial images were obtained from the dome of the diaphragm to the symphysis pubis without oral contrast. IV 100mL Isovue-[id number] was administered. Sagittal and coronal images were reconstructed. Individualized dose optimization techniques were used for this CT. COMPARISON: Comparison is made with prior sonogram dated January 19, 2023. FINDINGS: Calcified granuloma in the peripheral lateral aspect of the right lower lobe. Coronary artery calcification. Normal liver. Normal gallbladder and extrahepatic biliary system. Normal spleen. Normal pancreas. Normal bilateral adrenal glands. Normal right kidney. Normal left kidney. Normal visualized stomach. Normal small intestine. There are multiple colonic diverticula consistent with diverticulosis. The appendix is visualized and appears normal. There is diffuse atherosclerotic calcification of the abdominal aorta. Saccular infrarenal abdominal aortic aneurysm with a transverse dimension of 48.5 mm. 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 Mural thrombus is seen. The proximal portion of the right common iliac artery measures 1.8 cm. Normal inferior vena cava. Normal retroperitoneum. Distended urinary bladder. This evidence of a diverticulum in the posterior right aspect of the bladder measuring 4 cm x 3.5 cm. Prostatic enlargement with indentation of the bladder base. Normal abdominal wall. There are diffuse degenerative changes of the visualized lumbar spine. Status post right total hip replacement. CT/CTA Abd/Pelvis W/WO Contrast IMPRESSION: There is a saccular infrarenal abdominal aortic aneurysm with a transverse dimension of 48.5 mm. Aneurysmally dilated common iliac arteries bilaterally. Distended urinary bladder with prostatic enlargement and right-sided bladder diverticulum. Electronically Signed: Jw Alcaraz MD at 9:59 EDT ,
[2023-02-25] MEDS: 0.9% Normal Saline 1,000 ML 500 ML IV (14:16)
[2023-02-25 14:17] VITALS: BP 129/65; PULSE 68; RESP 16; TEMP 36.7; O2SAT 98; BMI 25.0
== END | disposition home or self-care (01) ==
LOC: CT 13:51
PROVIDERS: PCP Internal Medicine; Referring Provider Surgery; Visit Provider Surgery
DX: I71.40 Abdominal aortic aneurysm, without rupture, unspecified (principal)
CPT/HCPCS: 74174; Q9967

== ENCOUNTER 2023-04-07 05:26 | Inpatient (IN) | payer MEDICARE, OTHER, SELFPAY ==
[2023-03-29 15:11] LABS: Hematocrit 38.4 % (40-54); Hemoglobin 12.1 g/dL (13.0-16.5); Mean Corp Hgb Conc 31.5 g/dL (32-36); Mean Corpuscular Hgb 29.4 pg (27.0-32.0); Mean Corpuscular Volume 93.2 fL (80-94); Platelet Count 135 K/mm3 (150-450); RBC Distribution Width CV 15.6 % (11.6-14.6); RBC Distribution Width SD 53.8 fl (35.1-43.9); Red Blood Count 4.12 M/mm3 (4.6-6.2); White Blood Count 8.2 K/mm3 (4.4-11.0)
[2023-03-29 16:07] LABS: Anion Gap 3 (5-15); BUN 29 mg/dL (7-18); BUN/Creat Ratio 20.3 RATIO (10-20); Calcium,Total 8.7 mg/dL (8.5-10.1); Chloride 105 mmol/L (98-107); Creatinine, Serum 1.43 mg/dL (0.70-1.30); EST Glomerular Filtration Rate 50 mL/min (>60); Est Glom Filt Rate - Afr Amer 61 mL/min (>60); Glucose 123 mg/dL (74-106); Potassium 3.7 mmol/L (3.5-5.1); Sodium Level 139 mmol/L (136-145)
[2023-03-29 16:36] LABS: AST(SGOT) 19 U/L (15-37); Alanine Aminotransfer ALT/SGPT 22 U/L (16-61); Albumin, Serum 3.4 g/dL (3.2-5.0); Alkaline Phosphatase 64 U/L (45-117); Bilirubin, Direct 0.17 mg/dL (0.00-0.30); Globulin 3.4 g/dL (2.2-4.2); Magnesium 2.3 mg/dL (1.6-2.6); Phosphorus 2.4 mg/dL (2.5-4.9); Protein, Total 6.8 g/dL (6.4-8.2)
--- NOTE | 2023-04-01 10:40 | RAD_ITS ---
STUDY: X-RAY CHEST REASON FOR EXAM: Male, 83 years old. PREOP TECHNIQUE: Single AP portable view of the chest. COMPARISON: 10/13/2016. FINDINGS: The lungs are hyperexpanded. There are coarsened interstitial markings suggestive of mild chronic fibrosis. No gross focal infiltrates. No gross effusions. Normal size heart. There are calcified mediastinal lymph nodes. Normal visualized pulmonary arteries. Normal visualized aortic arch and descending thoracic aorta. Normal visualized thoracic spine. Normal visualized ribs, clavicles, and shoulders. There is no demonstrated abnormality of the visualized soft tissue structures of the upper abdomen. RAD/Chest PA and Lateral IMPRESSION: COPD with patchy areas of fibrosis and interstitial thickening. However no definite acute chest disease. Electronically Signed: Ambrocio Cotton MD at 20:38 EDT ,
--- NOTE | 2023-04-01 10:45 | EKG12_ITS ---
Test Reason : AAA Blood Pressure : / mmHG Vent. Rate : 054 BPM Atrial Rate : 054 BPM P-R Int : 134 ms QRS Dur : 096 ms QT Int : 482 ms P-R-T Axes : 099 040 000 degrees QTc Int : 457 ms Sinus bradycardia Voltage criteria for left ventricular hypertrophy Abnormal ECG Confirmed by ISAIAH LAWTON, AMADOU ([id number]), communications editor BENITA NUNN ([id number]) on 04/01/2023 2:31:00 PM Referred By: Omid Perez Confirmed By:AMADOU COLON MD
[2023-04-01 11:14] LABS: Hematocrit 38.1 % (40-54); Hemoglobin 12.2 g/dL (13.0-16.5); Mean Corpuscular Hgb 29.7 pg (27.0-32.0); Mean Corpuscular Volume 92.7 fL (80-94); Mean Platelet Vol. 10.7 fl (6.2-12.0); Platelet Count 132 K/mm3 (150-450); RBC Distribution Width CV 15.7 % (11.6-14.6); RBC Distribution Width SD 52.9 fl (35.1-43.9); Red Blood Count 4.11 M/mm3 (4.6-6.2); White Blood Count 7.7 K/mm3 (4.4-11.0)
[2023-04-01 11:43] LABS: Anion Gap 7 (5-15); BUN 30 mg/dL (7-18); BUN/Creat Ratio 21.4 RATIO (10-20); Calcium,Total 8.9 mg/dL (8.5-10.1); Chloride 104 mmol/L (98-107); EST Glomerular Filtration Rate 51 mL/min (>60); Est Glom Filt Rate - Afr Amer 62 mL/min (>60); Glucose 102 mg/dL (74-106); Potassium 3.9 mmol/L (3.5-5.1); Sodium Level 139 mmol/L (136-145)
[2023-04-01 12:42] LABS: International Normalized Ratio 1.1; Prothrombin Time (Protime)PT. 14.3 SECONDS (11.7-14.9)
[2023-04-07] VITALS (32 sets, daily range): BP systolic 132–185; BP diastolic 54–93; PULSE 53–75; RESP 12–18; TEMP 36.2–36.9; O2SAT 95–100; BMI 24.5; BMI 26.6
--- NOTE | 2023-04-07 05:45 | PCM.HP.BLA ---
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: No Is patient in pain?: No Allergies lisinopril Allergy (Intermediate, Verified 03/05/23 07:35) Rashatorvastatin calcium [From Lipitor] Allergy (Verified 03/05/23 07:35) Otherclonidine Allergy (Verified 03/05/23 07:35) Unknownrosuvastatin calcium [From Crestor] Allergy (Verified 03/05/23 07:35) JiacwLmcwdzi-IYT-UiM Reductase Inhibitor [Rmhsfxp-Iwn-Iij Reductase Inhibitor] Allergy (Verified 03/05/23 07:35) Other Medications [id number]-[id number] 500 mg-1,000 unit-500 mcg cap 1 ea PO DAILY supplement 07/26/15 [History Confirmed 03/05/23] furosemide 20 mg tablet 20 mg PO DAILY heart 05/17/19 [History Confirmed 03/05/23] glucosamine-chondroitin 250 mg-200 mg tablet (Osteo Bi-Flex) 2 tab PO DAILY supplement 05/17/19 [History Confirmed 03/05/23] losartan 100 mg tablet 100 mg PO DAILY BP 05/17/19 [History Confirmed 03/05/23] magnesium 200 mg tablet 400 mg PO DAILY supplement 05/17/19 [History Confirmed 03/05/23] cholecalciferol (vitamin D3) 50 mcg (2,000 unit) capsule 2,000 unit PO DAILY supplement 05/18/19 [History Confirmed 03/05/23] coenzyme Q10 100 mg capsule 200 mg PO DAILY supplement 05/18/19 [History Confirmed 03/05/23] garlic 1,000 mg capsule 1,000 mg PO DAILY supplement 05/18/19 [History Confirmed 03/05/23] multivitamin 1 tab PO DAILY supplement 05/18/19 [History Confirmed 03/05/23] ascorbic acid (vitamin C) 500 mg capsule 4,000 mg PO DAILY supplement 02/14/20 [History Confirmed 03/05/23] carvedilol 12.5 mg tablet 12.5 mg PO BID heart #180 tabs 11/12/21 [Rx Confirmed 03/05/23] aspirin 81 mg tablet,delayed release (Adult Aspirin Regimen) 81 mg PO QDAY PRN heart health 05/13/22 [History Confirmed 03/05/23] budesonide 3 mg capsule,delayed,extended release cap PO 02/23/23 [History Confirmed 03/05/23] [facility] Medical History Abdominal aortic 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 Anemia Cough productive of purulent sputum 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, NYHA class 2 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 Diverticulosis Essential hypertension Hyperlipidemia Irregular heart beat Kidney disease Lumbar disc disease Pre-operative cardiovascular examination Preop cardiovascular exam RSV (respiratory syncytial virus pneumonia) Shortness of breath Stenosis of right internal carotid artery Surgical History History of back surgery History of blepharoplasty History of colonoscopy History of inguinal hernia repair History of right-sided carotid endarterectomy History of tonsillectomy History of total hip replacement History of total left knee replacement History of umbilical hernia repair Hx of appendectomy Hx of cataract surgery Family History Father Lung cancer Liver cancerMother Oral cancer Social History Smoking Status: Former smoker second hand exposure: No alcohol intake: never substance use type: does not use caffeine: Yes Type: coffee Number of servings: 2 HPI HPI HPI: 83-year-old gentleman returns to discuss results of his CTA of his abdominal aortic aneurysm. I have personally reviewed those images. 83-year-old gentleman who has been monitored with a progressively enlarging infrarenal abdominal aortic aneurysm. It is a saccular aneurysm measuring now 48.5 mm in diameter. Mural thrombus is identified. There is plaque that extends close to the origin of the right renal artery but otherwise there is a long neck for placement of the device. 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 On review of the imaging he does appear to be a candidate for a endovascular abdominal aortic aneurysm stent graft repair with bilateral hanley bottom devices. He returns today to discuss this as a potential procedure. Laboratory that was obtained on February 23, 2023 demonstrates a potassium of 3.6 with a BUN of 34 and a creatinine of 1.37 with an estimated GFR of 53 placing him in stage IIIa chronic kidney disease. States that he has had some problems with variable blood pressure. He states he just saw Dr. Dallas Reed yesterday and was placed on additional medication. February 25, 2023 STUDY:? CTA ABDOMEN AND PELVIS WITH AND WITHOUT CONTRAST REASON FOR EXAM: ? Male, 83 years old.? AAA RADIATION DOSAGE (If Supplied By Facility):? CTDIvol = ( 22.68 ) mGy, DLP = ( 477.60 ) mGycm TECHNIQUE: ? Transaxial images were obtained from the dome of the diaphragm to the symphysis pubis without oral contrast.? IV 100mL Isovue-370 was administered.? Sagittal and coronal images were reconstructed. Individualized dose optimization techniques were used for this CT. COMPARISON: ? Comparison is made with prior sonogram dated January 19, 2023. FINDINGS: Calcified granuloma in the peripheral lateral aspect of the right lower lobe.? Coronary artery calcification. Normal liver.? Normal gallbladder and extrahepatic biliary system.? Normal spleen.? Normal pancreas. Normal bilateral adrenal glands. Normal right kidney.? Normal left kidney. Normal visualized stomach.? Normal small intestine.? There are multiple colonic diverticula consistent with diverticulosis.? The appendix is visualized and appears normal. There is diffuse atherosclerotic calcification of the abdominal aorta. Saccular infrarenal abdominal aortic aneurysm with a transverse dimension of 48.5 mm. 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 Mural thrombus is seen. The proximal portion of the right common iliac artery measures 1.8 cm. Normal inferior vena cava.? Normal retroperitoneum. Distended urinary bladder. This evidence of a diverticulum in the posterior right aspect of the bladder measuring 4 cm x 3.5 cm. Prostatic enlargement with indentation of the bladder base. Normal abdominal wall.? There are diffuse degenerative changes of the visualized lumbar spine. Status post right total hip replacement. CT/CTA Abd/Pelvis W/WO Contrast IMPRESSION: There is a saccular infrarenal abdominal aortic aneurysm with a transverse dimension of 48.5 mm. Aneurysmally dilated common iliac arteries bilaterally. Distended urinary bladder with prostatic enlargement and right-sided bladder diverticulum. ? Electronically Signed: Jw Alcaraz MD at 9:59 EDT , My previous notes reflect the following Visit Reasons:?YEARLY CAROTID & AAA Chief Complaint: Yearly US results Is patient in pain?: No Allergies lisinopril Allergy (Intermediate, Verified 02/23/23 09:38) Rashatorvastatin calcium [From Lipitor] Allergy (Verified 02/23/23 09:38) Otherclonidine Allergy (Verified 02/23/23 09:38) Unknownrosuvastatin calcium [From Crestor] Allergy (Verified 02/23/23 09:38) DtcuaXcgokjl-CQO-JeM Reductase Inhibitor [Oetlfvb-Giq-Ssd Reductase Inhibitor] Allergy (Verified 02/23/23 09:38) Other Medications [id number]-fpeerldkaxl 500 mg-1,000 unit-500 mcg cap 1 ea PO DAILY supplement 07/26/15 [History Confirmed 05/13/22] furosemide 20 mg tablet 20 mg PO DAILY heart 05/17/19 [History Confirmed 05/13/22] glucosamine-chondroitin 250 mg-200 mg tablet (Osteo Bi-Flex) 2 tab PO DAILY supplement 05/17/19 [History Confirmed 05/13/22] losartan 100 mg tablet 100 mg PO DAILY BP 05/17/19 [History Confirmed 05/13/22] magnesium 200 mg tablet 400 mg PO DAILY supplement 05/17/19 [History Confirmed 05/13/22] cholecalciferol (vitamin D3) 50 mcg (2,000 unit) capsule 2,000 unit PO DAILY supplement 05/18/19 [History Confirmed 05/13/22] coenzyme Q10 100 mg capsule 200 mg PO DAILY supplement 05/18/19 [History Confirmed 05/13/22] garlic 1,000 mg capsule 1,000 mg PO DAILY supplement 05/18/19 [History Confirmed 05/13/22] multivitamin 1 tab PO DAILY supplement 05/18/19 [History Confirmed 05/13/22] ascorbic acid (vitamin C) 500 mg capsule 4,000 mg PO DAILY supplement 02/14/20 [History Confirmed 05/13/22] carvedilol 12.5 mg tablet 12.5 mg PO BID heart #180 tabs 11/12/21 [Rx Confirmed 05/13/22] aspirin 81 mg tablet,delayed release (Adult Aspirin Regimen) 81 mg PO QDAY PRN heart health 05/13/22 [History Confirmed 05/13/22] budesonide 3 mg capsule,delayed,extended release cap PO 02/23/23 [History Confirmed 02/23/23] PFSH Medical History?(Updated 02/23/23 @ 09:47 by Sangeetha Castelan) Abdominal aortic 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 Anemia Cough productive of purulent sputum 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, NYHA class 2 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 Diverticulosis Essential hypertension Hyperlipidemia Irregular heart beat Kidney disease Lumbar disc disease Pre-operative cardiovascular examination Preop cardiovascular exam RSV (respiratory syncytial virus pneumonia) Shortness of breath Stenosis of right internal carotid artery Surgical History? History of back surgery History of blepharoplasty History of colonoscopy History of inguinal hernia repair History of right-sided carotid endarterectomy History of tonsillectomy History of total hip replacement History of total left knee replacement History of umbilical hernia repair Hx of appendectomy Hx of cataract surgery Family History? Father?? Lung cancer Liver cancerMother Oral cancer Social History? Smoking Status:? Former smoker second hand exposure:? No alcohol intake:? never substance use type:? does not use caffeine:? Yes Type: coffee Number of servings: 2 HPI HPI HPI: 83-year-old gentleman presents for follow-up regarding an abdominal aortic aneurysm and extracranial carotid artery occlusive disease.? As of January 19, 2023 he had any abdominal aortic duplex exam.? I have personally reviewed and interpreted these images.? The patient has a 4.67 x 4.82 cm diameter mid abdominal aortic aneurysm with a left common neck measuring 1.3 cm in the right common neck 1.21 cm.? Previously January 12, 2022 the abdominal aortic aneurysm measured 4.53 x 4.22 cm in diameter. As of January 19, 2023 he also had carotid duplex imaging.? He has a history of a right carotid enterectomy January 30, 2021.? The duplex imaging demonstrates a widely patent right carotid bulb and proximal internal carotid artery with less than 50% stenosis.? The left internal carotid artery demonstrates a maximum peak systolic velocity in the mid internal carotid artery and 137 cm/s peak systolic flow consistent with 50 to 69% stenosis.? No change from January 03, 2021.? I have personally reviewed and interpreted those images. It is of note that the patient is on low-dose aspirin 81 mg daily in addition to his other medications. Over the past year he has been generally well except he did have a bout of severe diarrhea.? He states he was worked up at [facility] in [facility] had a colonoscopy and then suggest that he was placed on medication.? It appears that he has been placed on budesonide.? Likely he has microcytic colitis but he was unclear about that.? Otherwise he denies chest pain or shortness of breath or focal neurologic change.? He is supposed to be on a low-dose aspirin but he is intermittently consistent with that. As noted below he had an abdominal aortic ultrasound now demonstrating that the maximum aortic diameter is 4.67 x 4.82 cm.? This is progressed from his previous examination of January 12, 2022.? I have personally reviewed and assisted with interpreting the images. January 19, 2023 Reason For Study: AAA Aorta Measurements? Aorta Doppler Measurements Proximal aorta measures2.23 x 2.12cm. in cross- ? Peak systolic flow velocities within the proximal sectional axis. ? aorta measure 103.1 cm/sec. Proximal aorta measures2.23cm. in longitudinal? ? Peak systolic flow velocities within the mid aorta axis. ? measure 122.7 cm/sec. Mid aorta measures4.67 x 4.82cm. in cross-? Peak systolic flow velocities within the distal sectional axis. ? aorta measure 93.8 cm/sec. Mid aorta measures4.82cm. in longitudinal axis. Distal aorta measures2.39 x 2.36cm. in cross- sectional axis. Distal aorta measures2.06cm. in longitudinal axis. Left Iliac Artery Left iliac artery measures 1.30 x 1.23 cm. in the cross-sectional axis. Left iliac artery measures 1.26 cm. in the longitudinal axis. Peak systolic velocity in the left iliac artery measures 113.0 cm/sec. Right Iliac Artery Right iliac artery measures 1.21 x 1.27 cm. in the cross-sectional axis. Right iliac artery measures 1.21 cm. in the longitudinal axis. Peak systolic velocity in the right iliac artery measures 54.3 cm/sec. Procedure Aorta IVC Iliac vasculature or bypass grafts 01233. The exam was diagnostic. Exam performed in department. VL/Abd Aortic/IVC Duplex scan Interpretation Summary Abdominal aortic aneurysm measuring 4.67 x 4.82 cm in diameter in the mid abdominal aorta. Left common iliac artery ectatic at 1.3 x 1.23 cm diameter Right common iliac normal at 1.21 x 1.27 cm diameter ? On January 12, 2022 the abdominal aortic aneurysm measured 4.53 x 4.22 cm in diameter ? ? Ordering Physician: Omid Perez MD Referring Physician: Dallas Reed Performed By: Yuan Menon Yael General General: Yes weight change; No appetite, fatigue, colon cancer, breast cancer or weakness HEENT HEENT: Yes eye surgery; No difficulty swallowing, eye injury, swollen glands or hoarseness Endo Endocrine: No thyroid disease, diabetes mellitus, thyroid cancer, Hair loss, heat intolerance or cold intolerance Musc Musculoskeletal: Yes back problems and arthritis; No rheumatoid arthritis, gout or joint pain Cardio Cardiovascular: Yes high blood pressure; No murmur, pacemaker, heart disease, atrial fibrillation, heart attack, heart stent, palpitations, shortness of breat with exertion or chest pain Psych Psychiatric: No depression, anxiety or hearing voices Resp Respiratory: No shortness of breath, No sleep apnea, No cough, No COPD, No asthma, No emphysema and No wheezing Gastro Gastrointestinal: No abdominal pain, No nausea or vomiting, Yes diarrhea, No constipation, No blood in stool, No acid reflux, No hemorrhoids, No ulcers, No gallbladder problem and No black,tarry stools Leo Hematologic: No blood thinners, No blood disorders, No bleeding, No anemia and No blood clots Neuro Neurologic: Yes numbness, Yes tingling and No weakness Exam Const General: cooperative, healthy appearing, comfortable, no acute distress and well developed Nutritional Appearance: average body habitus [facility] Head: normal to inspection Eyes General: appearance normal, both eyes and all related structures Neck Neck: normal visual inspection Other: Very nicely healed right carotid incision.? Bilateral carotid pulses 3+.? No carotid bruits Chest Chest palpation & inspection: normal inspection of the chest Resp Effort & Inspection: normal respiratory effort Auscultation: clear to auscultation bilaterally Cardio Rate: regular rate Rhythm: regular rhythm Other: Bilateral femoral pulses are 3+.? Bilateral popliteal pulses 3+.? Bilateral DP 0.? Bilateral PTs 3+ GI Palpation: soft and no hepatosplenomegaly Auscultation: normal bowel sounds Other: Abdominal aorta is easily palpable and aneurysmal.? Nontender. 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 His abdominal aortic aneurysm appears to be slowly progressing.? At age 83 he appears to be enjoying a good quality of life.? He does have chronic renal insufficiency and we we will recheck his renal function test.? If permissible I do want to pursue a CTA of the abdomen and pelvis.? We will then have him return to the office for additional consultation.? His aneurysm has significantly progressed since identification in 2017.? It appears that he has ongoing good quality of life and longevity and he is interested in pursuing this matter.? The CTA will help provide information as to whether he would be a candidate for endovascular repair. He has had an opportunity to ask and have questions answered.? I appreciate the ongoing option of assisting with the surgical care.? If possible we will pursue the imaging and then have him to return. Copy: Dr. Dallas Perez M.D., F.A.C.S [facility] General General: Yes weight change; No appetite, fatigue, colon cancer, breast cancer or weakness HEENT HEENT: Yes eye surgery; No difficulty swallowing, eye injury, swollen glands or hoarseness Endo Endocrine: No thyroid disease, diabetes mellitus, thyroid cancer, Hair loss, heat intolerance or cold intolerance Musc Musculoskeletal: Yes back problems and arthritis; No rheumatoid arthritis, gout or joint pain Cardio Cardiovascular: Yes high blood pressure; No murmur, pacemaker, heart disease, atrial fibrillation, heart attack, heart stent, palpitations, shortness of breat with exertion or chest pain Psych Psychiatric: No depression, anxiety or hearing voices Resp Respiratory: No shortness of breath, No sleep apnea, No cough, No COPD, No asthma, No emphysema and No wheezing Gastro Gastrointestinal: No abdominal pain, No nausea or vomiting, Yes diarrhea, No constipation, No blood in stool, No acid reflux, No hemorrhoids, No ulcers, No gallbladder problem and No black,tarry stools Leo Hematologic: No blood thinners, No blood disorders, No bleeding, No anemia and No blood clots Neuro Neurologic: Yes numbness, Yes tingling and No weakness Assessment and Plan Assessment and Plan (1) Abdominal aortic 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: Status: Chronic Comment: 4.67 x 4.82 cm in diameter as of January 19, 2023 (2) Aneurysm, common iliac artery: Status: Acute (3) Chronic renal failure, stage 3 (moderate): Status: Chronic Plan I have discussed with the patient the technique of abdominal aortic aneurysm endovascular stent graft repair. He is aware of the benefit, risk, alternatives. We have been carefully monitoring the progression of his infrarenal abdominal aortic aneurysm and as he otherwise continues to enjoy a good quality of life at the current growth of the aneurysm would appear to warrant repair. He has had an opportunity to ask and have questions answered. I have discussed with the patient infrarenal abdominal aortic aneurysm stent graft repair with hanley bottom devices to secure the bilateral common iliac artery aneurysms. We discussed arterial line monitoring. We compared and contrasted that to an open aneurysm repair. The patient is enjoying a very high quality of life. He is aware that he does not need to pursue repair at all. He has had an opportunity to ask and have questions answered. I have additionally discussed with him that it is important that he have his blood pressure control maximized. We will send a copy of this report to Dr. Dallas Reed in hopes of maximizing that care prior to her intervention. Copy: Dr. Dallas Perez M.D., F.A.C.S This patient presents for an infrarenal abdominal aortic aneurysm stent graft repair with arterial line placement. His health remains unchanged. He has had an opportunity to ask and have questions answered. We will proceed as noted. Omid Perez M.D., F.A.C.S.
--- NOTE | 2023-04-07 06:25 | PCM.OPRPT ---
Report of Operation Date of Procedure: 04/07/23 Pre-Operative Diagnosis: Infrarenal abdominal aortic aneurysm Post-Operative Diagnosis: Same Surgery/Procedure Performed:: Right radial arterial line placement Description of Surgical Findings:: Timeout informed consent was obtained at the bedside. Garrick test was performed demonstrating adequate ulnar flow. The right wrist was gently extended prepped with Betadine. Under ultrasound guidance 1% lidocaine was used as a local anesthetic. A total of 1/2 cc was used. 20-gauge Angiocath was advanced into the artery under ultrasound guidance and then advanced with Salinger wire. I exchanged out for a 20-gauge arterial line Angiocath. That was secured to skin with interrupted 3-0 silk. It was connected to pressure tubing. Telfa OpSite dressing applied followed by Nel wrap. He tolerated the procedure well there was no apparent complication. Hand was viable at the completion with good waveform. Omid Perez M.D., F.A.C.S. Surgeon: Omid Perez Type of Anesthesia: Local
--- NOTE | 2023-04-07 06:27 | DCINST_ITS ---
Discharge Instructions Diet Discharge Diet: Light diet - advance as tolerated Activity Discharge Activity: May Not Drive (May not drive for 5 to 7 days.) and May Shower (May shower on Wednesday, April 09, 2023) Weight Bearing Status: Full weight bearing Lifting Restrictions: 10 pound weight lifting restriction Additional Activity Instructions:: You may walk with care paying attention to bilateral groin incisions Dressing / Incision Call your doctor if your incision/area has: Continuous Slow Oozing, Sudden Increased Bleeding, Increased Pain/ Swelling and Increased Redness Call your doctor if you observe: Fever of 101 or Higher, Coldness, Increased Pain and Numbness or Tingling Additional Dressing/Incision Instructions:: Please leave the OpSite plastic dressings on for 2 days then you may remove them. Leave the Steri-Strips on for 1 additional week. Follow Up Care Please Follow Up With: Omid Perez MD When: Please call [phone] for follow-up office appointment approximately 10 days Test Results: Test results from this visit will be discussed in further detail at your follow- up appointment, if applicable. Discharge Plan Admission Admit Date/Time: 04/07/23 05:26 Primary Reason for Your Visit: Infrarenal abdominal aortic aneurysm repair Attending Provider: Omid Perez Primary Care Provider: Dallas Reed Consulting Providers: Dieter Christianson Discharge Orders/Prescriptions Prescriptions: Continued coenzyme Q10 100 mg capsule 200 mg PO DAILY garlic 1,000 mg capsule 1,000 mg PO DAILY cholecalciferol (vitamin D3) 2,000 unit capsule 2,000 unit PO DAILY multivitamin Tablet 1 tab PO DAILY furosemide 20 mg tablet 20 mg PO DAILY losartan 100 mg tablet 100 mg PO DAILY glucosamine-chondroitin 250 mg-200 mg tablet 250-200 mg tablet 1 tab PO DAILY magnesium 200 mg tablet 400 mg PO DAILY ascorbic acid (vitamin C) 500 mg capsule 2,000 mg PO DAILY carvedilol 12.5 mg tablet 12.5 mg PO BID Qty: 180 0RF budesonide 3 mg capsule,delayed,extend.release 9 mg PO DAILY aspirin [Adult Aspirin Regimen] 81 mg tablet,delayed release (DR/EC) 81 mg PO QODAY PRN (Reason: heart health) Held [id number] 1 EACH capsule 1 ea PO DAILY Hold Instructions: Resume on 04/21/23. Patient Comments: supplement Other Ambulatory Orders: CTA Abd/Pelvis W/WO Contrast (Routine) Timeframe: [id number] Facility: [facility] - Location: [facility] [place] [facility], [facility] Ordered By: Radha PEREZ Referrals / Follow Up: Dallas Reed MD [Primary Care Provider] -
[2023-04-07] MEDS: Bupivacaine Mpf 0.5% 30 ML VIAL (06:35)
[2023-04-07] MEDS: Nitro/D5w 25MG/250ML Bottle 25 MG (06:35)
[2023-04-07] MEDS: Cefazolin 2 GM in 0.9% Normal Saline 100 ML IV (07:00)
--- NOTE | 2023-04-07 10:36 | PCM.OPRPT ---
Report of Operation Date of Procedure: 04/07/23 Pre-Operative Diagnosis: Infrarenal abdominal aortic aneurysm Post-Operative Diagnosis: Same Surgery/Procedure Performed:: Infrarenal abdominal aortic stent graft repair Main body introduced through the left common femoral 23 x 14.5 x 12 Yantis excluder conformable stent graft Right common iliac 16 x 18 x 11.5 cm contralateral limb Left common neck 16 x 20 x 9.5 cm ipsilateral hanley bottom 100 cc contrast Description of Surgical Findings:: Timeout and informed consent was obtained. I previously placed a right radial artery line for the patient. He was then taken to the special procedures lab. He initially underwent monitored anesthesia care but he was restless so he was converted to an LMA general anesthetic. Ancef 2 g were given intravenously. Timeout informed consent was obtained. The abdomen groins were sterilely prepped and draped. Ultrasound was used to identify the right common femoral artery and 2% lidocaine was instilled. Use ultrasound and a micropuncture needle got access to the right common femoral microwire micropuncture sheath 035 J-wire a 6 Palestinian short sheath dilator. I then used 2 Perclose devices over standard J-wire 1 position 2 to 8 o'clock position the other from 10:00 to 4 o'clock position. Subsequently advanced a 8 Palestinian sheath. I repeated that same process in the left groin. And a 5 Palestinian pigtail catheter to gain access to the aorta proximal to the renal arteries. Placed the 035 Amplatz wire and repeated this process on the left and the right. Patient received 7000 units of heparin weight-based and throughout the procedure ACT measurements were obtained. Throughout the procedure an additional 1000 units an additional 1000 units totaling 9000 units total for the entire procedure. Over the Amplatz wire on the left I placed a 16 Palestinian Yantis sheath and on the right initially tried a Cook sheath of 12 Palestinian Cook that would not go so I placed 612 Palestinian Yantis sheath. Through the main body on the left placed a 23 x 14.5 x 12 Yantis excluder conformable device placed a pigtail catheter from the right groin image to the origin of the renal arteries used the angulation from the conforming device in place the device so that it was absolutely flush with the left renal artery. Repeat imaging demonstrated this to be the case. I then released the constraining device. Withdrew the contralateral sheath and using the pigtail catheter and a Glidewire to gain access to the contralateral limb replaced that for a Amplatz wire. Did steep angulation of the right iliacs and retrograde through the sheath obtain images made measurements and then placed a 16 x 18 x 11.5 cm contralateral limb on the right. Release that demonstrating good positioning. Completely released the main body device now on the left. Maintained access with Magic wire. Again obtained a retrograde image on the left with angulation and measurement and then placed a 16 x 20 x 9.5 cm device on the left deployed that. Then I used a 23 mm compliant balloon to seat the main body and extension limbs. Replaced the pigtail catheter and obtain an aortogram demonstrating renal arteries to be patent the conforming graft to be in good position position particularly hooked within the left renal. There did appear to be 2 lumbar vessels just at the distal part of the infrarenal neck. So I reinserted a 31 mm compliant balloon and we ballooned that area trying to get better fixation. Because of the patient's chronic renal sufficiency I did not obtain another aortogram. I felt that all limbs were in good position. There was otherwise apparent exclusion to the aneurysm. Withdrew the sheath from the right and secured the 2 Perclose devices with good results was able to remove the wire. Remove the sheath on the left and secured to 2 Perclose devices but there was still bleeding so over a Magic wire inserted at a additional Perclose device and at a 3 to 9 o'clock position deployed that secured that device and then had hemostasis. The feet were inspected and as preoperatively there was strong 3+ bilateral posterior tibial pulses and good warm viable feet. Good pulsations in each groin. At this point the patient then received 30 mg of protamine intravenously. His baseline ACT was 155 after the 7000 units of heparin 197 after an additional 1000 units of heparin 197 after additional 1000 units of heparin 203 and at the completion of the procedure of the protamine 142. Images demonstrate that the infrarenal abdominal aortic stent graft appears to be in good position with appropriate proximal angulation. There is fixation of the proximal portion of the graft right to the origin of the left renal. There is the potential for lumbar type II endoleak just at the distal portion of the neck of the aneurysm. There appears to be good outflow distally with maintained flow in both internal and external iliacs. Both groin wounds were closed interrupted 4 Monocryl subdermal stitches Steri-Strips Telfa OpSite dressings applied he remained very stable he was subsequent taken to the PACU in satisfied condition without apparent complication Omid Perez M.D., F.A.C.S. Surgeon: Omid Perez Type of Anesthesia: General Anesthesiologist: Melina Paz
[2023-04-07 12:05] LABS: ACT Activated Clotting Time 155 sec (74-137)
[2023-04-07 12:06] LABS: ACT Activated Clotting Time 197 sec (74-137)
[2023-04-07 12:07] LABS: ACT Activated Clotting Time 197 sec (74-137)
[2023-04-07 12:07] LABS: ACT Activated Clotting Time 203 sec (74-137)
[2023-04-07 12:08] LABS: ACT Activated Clotting Time 143 sec (74-137)
--- NOTE | 2023-04-07 12:20 | SUR.PHASEI ---
CONTACTED VIA TELEPHONE TO CLARIFY ORDERS AND ASK QUESTION ABOUT PATIENT. DR. NICOLE NOTIFIED THAT PATIENTS OPERATIVE SITES LOOK GOOD WITH NO BRUISING, DISCOLORATION, SWELLING, OR PAIN. PATIENT URINE OUTPUT IS GOOD AND TOLERATING CATHETER WELL. DR. NICOLE GAVE TELEPHONE ORDERS TO INCREASE IV FLUID RATE FROM 15ML/HR TO 50ML/HR. RN READ BACK ORDER TO . STATES THAT IF PATIENT IS DOING WELL HE MAY GO UP TO PCU AND NO NEED TO CALL BACK FOR UPDATE OR ORDER. DR. NICOLE ALSO STATED THAT UPON PACU DISCHARGE THAT THE ARTERIAL LINE MAY ALSO BE DISCONTINUED. MADE AWARE THAT PATIENT RECEIVED 10MG OF HYDRALAZINE IVP IN PACU FOR ELEVATING BLOOD PRESSURES, BLOOD PRESSURE WITHIN RANGE AND BELOW 160 SYSTOLIC AFTER ADMINISTRATION, DR. NICOLE OKAY WITH THAT. NO FURTHER ORDERS OR INSTRUCTIONS GIVEN AT THIS TIME.
[2023-04-07] MEDS: Lactated Ringers 1,000 ML 50 ML IV (13:04)
[2023-04-07] MEDS: Lactated Ringers 1,000 ML 70 ML IV (14:23)
[2023-04-07] MEDS: Cefazolin 1 GM/50 ML BAG IV ×2 (14:29→22:38)
[2023-04-07] MEDS: hydrALAZINE 20 MG/ML Vial 10 MG IV (15:11)
--- NOTE | 2023-04-07 15:19 | PCM.PN.SRG ---
Subjective Subjective Notes some back pain. Thinks it might be secondary to lying flat for so long. He has already been passing flatus. No significant groin pain. No nausea. Objective Data Objective Data Vital Signs: Vital Signs Temp Pulse Resp BP Pulse Ox O2 Del Method O2 Flow Rate 97.4 F L 64 14 182/86 H 96 Nasal Cannula 2 04/07/23 14:00 04/07/23 15:11 04/07/23 14:00 04/07/23 15:11 04/07/23 14:00 04/07/23 14:45 04/07/23 14:45 Oxygen Flow Rate (L/min) 2 Oxygen Delivery Method Nasal Cannula Weight: 174 lb 13.225 oz Body Mass Index (BMI) 26.6 Intake & Output: Intake and Output for Last 24 Hours 04/05/23 04/06/23 04/07/23 23:59 23:59 23:59 Output Total 250 / 250 Balance -250 / -250 Lab / Micro Data 04/01/23 10:25 04/01/23 10:25 Labs: Laboratory Results - last 24 hr 04/07/23 07:25: Activated Clotting Time 155 H 04/07/23 08:30: Activated Clotting Time 197 H 04/07/23 09:05: Activated Clotting Time 197 H 04/07/23 09:20: Activated Clotting Time 203 H 04/07/23 09:55: Activated Clotting Time 143 H Physical Exam Narrative Mild hypertension noted with blood pressure systolic greater than 160. Hydralazine IV being given Const Constitutional Narrative: Comfortable absolutely no distress nasal prong oxygen in place Resp Resp Narrative: Clear Cardio regular rate Cardio Narrative: Bilateral posterior tibial 3+ pulses feet warm and viable Rhythm: abnormal rhythm GI GI Narrative: Soft absolutely nontender positive bowel sounds Narrative: Bilateral groins supple no staining on the dressings nontender Assessment & Plan Assessment/Plan (1) Abdominal aortic 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: QUALIFIERS: Abdominal aorta location: infrarenal aorta Qualified Code(s): I71.43 - Infrarenal abdominal aortic aneurysm, without rupture PLAN: Patient is status post infrarenal abdominal aortic stent graft repair. He appears to be very stable. Mild hypertension being treated with IV hydralazine. Good clear urine output per Feliciano Bed rest is about up start to mobilize we will allow noncarbonated clear liquids. Repeat labs and repeat physical exam check in the morning. Excellent progress so far. Omid Perez M.D., F.A.C.S.
[2023-04-07] MEDS: Carvedilol 12.5 MG Tablet PO (21:45)
[2023-04-08] VITALS (12 sets, daily range): BP systolic 147–173; BP diastolic 66–86; PULSE 64–80; RESP 15–22; TEMP 36.3–36.7; O2SAT 89–100; BMI 25.2
[2023-04-08] MEDS: hydrALAZINE 20 MG/ML Vial 10 MG IV (00:22)
[2023-04-08] MEDS: 0.9% Saline Lock 10 ML Syringe IV (00:23)
--- NOTE | 2023-04-08 00:50 | NURSING ---
Pt was up to the chair for a few hours last night, Pt assisted back to bed at this time to get some sleep.
[2023-04-08] MEDS: Lactated Ringers 1,000 ML 70 ML IV (04:38)
[2023-04-08 05:40] LABS: Absolute Lymphocyte Count 1.37 X10^3/uL (0.83-4.51); Absolute Neutrophil Count 6.3 X10^3/uL (2.0-7.7); Basophil# 0.03 X10^3/uL; Basophil% 0.3 % (0-1); Eosinophil# 0.14 X10^3/uL; Eosinophils% 1.6 % (0-5); Hematocrit 36.4 % (40-54); Hemoglobin 11.8 g/dL (13.0-16.5); Lymphocyte # 1.37 X10^3/ul (0.83-4.51); Lymphocyte % 15.5 % (19-41); Mean Corp Hgb Conc 32.4 g/dL (32-36); Mean Corpuscular Hgb 29.9 pg (27.0-32.0); Mean Corpuscular Volume 92.2 fL (80-94); Mean Platelet Vol. 10.5 fl (6.2-12.0); Monocyte# 0.86 X10^3/uL; Monocyte% 9.7 % (0-10); NRBC Flagged by Analyzer 0 % (0-5); Neutrophil # 6.32 X10^3/uL (2.7-7.7); Neutrophil % 71.5 % (47-70); Platelet Count 107 K/mm3 (150-450); RBC Distribution Width CV 15.3 % (11.6-14.6); RBC Distribution Width SD 51.8 fl (35.1-43.9); Red Blood Count 3.95 M/mm3 (4.6-6.2); White Blood Count 8.8 K/mm3 (4.4-11.0)
--- NOTE | 2023-04-08 06:02 | NURSING ---
smith DCd per md order, placed urinal at bedside. Explained to pt to let us know if exp any difficulty in urinating. Pt understandable.
[2023-04-08 06:18] LABS: Anion Gap 6 (5-15); BUN 20 mg/dL (7-18); Calcium,Total 8.2 mg/dL (8.5-10.1); Chloride 108 mmol/L (98-107); Creatinine, Serum 1.11 mg/dL (0.70-1.30); EST Glomerular Filtration Rate 67 mL/min (>60); Est Glom Filt Rate - Afr Amer 81 mL/min (>60); Estimated Creatinine Clearance 48.78 ml/min; Glucose 96 mg/dL (74-106); Potassium 3.6 mmol/L (3.5-5.1); Sodium Level 142 mmol/L (136-145)
--- NOTE | 2023-04-08 06:28 | PCM.PN.SRG ---
Subjective Subjective Is doing well. No back pain no abdominal pain. Passing flatus. The Feliciano catheter was just removed. Objective Data Objective Data Vital Signs: Vital Signs Temp Pulse Resp BP Pulse Ox O2 Del Method O2 Flow Rate 97.3 F L 73 17 169/85 H 97 Room Air 2 04/08/23 05:56 04/08/23 05:56 04/08/23 05:56 04/08/23 05:56 04/08/23 05:56 04/08/23 05:56 04/08/23 04:13 Oxygen Flow Rate (L/min) 2 Oxygen Delivery Method Room Air Weight: 166 lb 3.657 oz Body Mass Index (BMI) 25.2 Intake & Output: Intake and Output for Last 24 Hours 04/06/23 04/07/23 04/08/23 23:59 23:59 23:59 Intake Total 556.67 / 556.67 997.5 / 997.5 Output Total 1200 / 1200 1100 / 1100 Balance -643.33 / -643.33 -102.5 / -102.5 Lab / Micro Data 04/08/23 05:14 04/08/23 05:14 Labs: Laboratory Results - last 24 hr 04/07/23 07:25: Activated Clotting Time 155 H 04/07/23 08:30: Activated Clotting Time 197 H 04/07/23 09:05: Activated Clotting Time 197 H 04/07/23 09:20: Activated Clotting Time 203 H 04/07/23 09:55: Activated Clotting Time 143 H 04/08/23 05:14: WBC 8.8, RBC 3.95 L, Hgb 11.8 L, Hct 36.4 L, MCV 92.2, MCH 29.9, MCHC 32.4, RDW Std Deviation 51.8 H, RDW Coeff of Erma 15.3 H, Plt Count 107 L, MPV 10.5, Immature Gran % (Auto) 1.400 H, Neut % (Auto) 71.5 H, Lymph % (Auto) 15.5 L, [place] % (Auto) 9.7, Eos % (Auto) 1.6, Baso % (Auto) 0.3, Absolute Neuts (auto) 6.3, Absolute Lymphs (auto) 1.37, Nucleated RBC % 0, Sodium 142, Potassium 3.6, Chloride 108 H, Carbon Dioxide 28.0, Anion Gap 6, BUN 20 H, Creatinine 1.11, Estim Creat Clear Calc 48.78, Est GFR (MDRD) Af Amer 81, Est GFR (MDRD) Non-Af 67, BUN/Creatinine Ratio 18.0, Glucose 96, Calcium 8.2 L Physical Exam Const oriented x3 Resp normal respiratory effort and clear to auscultation bilaterally Cardio Cardio Narrative: 3+ bilateral PT pulses GI GI Narrative: Soft, nontender Bilateral groin access sites absolutely clean dry supple Assessment & Plan Assessment/Plan (1) Abdominal aortic 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: QUALIFIERS: Abdominal aorta location: infrarenal aorta Qualified Code(s): I71.43 - Infrarenal abdominal aortic aneurysm, without rupture PLAN: Patient is making excellent progress. We will allow full liquids. Continue to mobilize. Await for his ability to void. Patient will be resuming his routine antihypertensives. I anticipate discharge today. Omid Perez M.D., F.A.C.S.
[2023-04-08] MEDS: Carvedilol 12.5 MG Tablet PO (08:48)
[2023-04-08] MEDS: Furosemide 20 MG Tablet PO (08:49)
[2023-04-08] MEDS: Magnesium Chloride 64 MG Delay Rel.Tablet 128 MG PO (08:49)
[2023-04-08] MEDS: Losartan Potassium 100 MG Tablet PO (08:49)
--- NOTE | 2023-04-08 10:50 | CASEMGMT ---
RN NALINI Face to Face with patient for initial transition planning/care coordination assessment. RN CM introduced self and role at [facility]. Patient sitting in chair, alert and oriented. Patient willing to participate in assessment and is able to answer all questions appropriately. Care providers, pharmacy, and demographics verified. Patient wishes to discharge home, denies need for home health at this time. Patient states he has no further needs or concerns at this time. CM to follow for discharge planning needs that may arise. PCP: Derek Specialists: Chris, surgeon; [facility]; Samara cane weigher Preferred Pharmacy: [facility] Insurance: [facility] Prescription Benefit: yes Living Will/HPOA: yes, Libra Camejo LNOK: Living Arrangements: Patient lives with in a 2 story home with bed and bath on first floor, 1 step to enter the home. Patient states he is independent at home. Transportation: self, DME/HHC: Patient has shower chair, raised toilet, cane, grab bars, walker at home. Patient has been to TCU and [facility] in the past. No previous HHC Disposition Plan: Patient to discharge home with family support and follow-up plans in place. Felicita RECIO, RN, CM
--- NOTE | 2023-04-08 13:03 | NURSING ---
voided 250 cc clear melina urine, scan for residual 150cc bp 165/88 hr 67
--- NOTE | 2023-04-08 14:21 | PHA.DC.MR.R ---
Pharmacy [facility] Med Reconciliation Pharmacy Service has performed discharge medication reconciliation for this patient. No new medications at time of discharge review. Medications reviewed are from previously reported home medications. The patient's discharge medication list was reviewed for discrepancies and discrepancies were resolved. Medications at Discharge Home Medications [id number] 500 mg-1,000 unit-500 mcg cap 1 ea PO DAILY supplement 07/26/15 furosemide 20 mg tablet 20 mg PO DAILY heart 05/17/19 glucosamine-chondroitin 250 mg-200 mg tablet (Osteo Bi-Flex) 1 tab PO DAILY supplement 05/17/19 losartan 100 mg tablet 100 mg PO DAILY BP 05/17/19 magnesium 200 mg tablet 400 mg PO DAILY supplement 05/17/19 cholecalciferol (vitamin D3) 50 mcg (2,000 unit) capsule 2,000 unit PO DAILY supplement 05/18/19 coenzyme Q10 100 mg capsule 200 mg PO DAILY supplement 05/18/19 garlic 1,000 mg capsule 1,000 mg PO DAILY supplement 05/18/19 multivitamin 1 tab PO DAILY supplement 05/18/19 ascorbic acid (vitamin C) 500 mg capsule 2,000 mg PO DAILY supplement 02/14/20 carvedilol 12.5 mg tablet 12.5 mg PO BID heart #180 tabs 11/12/21 aspirin 81 mg tablet,delayed release (Adult Aspirin Regimen) 81 mg PO QODAY PRN heart health 05/13/22 budesonide 3 mg capsule,delayed,extended release 9 mg PO DAILY BOWELS 02/23/23
--- NOTE | 2023-04-08 15:30 | CHAPLAIN ---
Type of Pastoral Visit _x__ Initial Visit ___ Follow-up Visit ___ On-call Visit ___ General Patient Visit ___ Spiritual Assessment ___ Family Conference ___ Bereavement ___ Rapid Response ___ Code Blue ___ Other (describe below) Pastoral Care Referral From _x__ Patient ___ Family ___ Nurse ___ Physician ___ Technical Supervisor ___ Vocational Rehabilitation Supervisor ___ Other (describe below) Sacrament/Intervention _x__ Active listening ___ Anointing ___ Temple ___ Bereavement ___ Communion _x__ Lin exploration ___ _x__ Life review _x__ Prayer ___ Reconciliation ___ Sacrament of Sick ___ Supportive presence ___ Wedding ___ Other (describe below) Pastoral Comments patient presents with self as a positive individual that looks for the positive and uses lin as his source of greatest strength; spouse is with him; both talk about the experience and their life which mostly revolves around their lin and community of lin; pt asks for prayer but does not seek further support
--- NOTE | 2023-04-08 17:12 | NURSING ---
discharged with instructions per wheelchair in care of
== END 2023-04-08 17:12 | disposition home or self-care (01) | DRG 269 ==
LOC: ACINP 08:22 → PCU 16:06
PROVIDERS: Anesthesiology; Admitting Provider Surgery; PCP Internal Medicine; Referring Provider Surgery; Visit Provider Surgery
PROC: 04V03DZ Restriction of Abdominal Aorta with Intraluminal Device, Percutaneous Approach (ICD-10-PCS; principal; 2023-04-07 07:00)
DX: I71.43 Infrarenal abdominal aortic aneurysm, without rupture (principal); I13.0 Hypertensive heart and chronic kidney disease with heart failure and stage 1 through stage 4 chronic kidney disease, or unspecified chronic kidney disease; I50.32 Chronic diastolic (congestive) heart failure; I72.3 Aneurysm of iliac artery; N18.31 Chronic kidney disease, stage 3a; E78.5 Hyperlipidemia, unspecified; Z79.82 Long term (current) use of aspirin; Z79.899 Other long term (current) drug therapy; Z87.891 Personal history of nicotine dependence
CPT/HCPCS: 34701; 34713; 36415; 71046; 80048; 80076; 83735; 84100; 85025; 85027; 85347; 85610; 85730; 86850; 86900; 86901; 93005; 94668; 94762; C1894; J7040; J7120; Q9967; A4216; C1725; C1760; C1769; C1887

== ENCOUNTER → 2023-04-19 | Outpatient (CLI) | payer MEDICARE, OTHER, SELFPAY ==
[2023-04-19 11:17] LABS: Anion Gap 2 (5-15); BUN 28 mg/dL (7-18); BUN/Creat Ratio 18.7 RATIO (10-20); Calcium,Total 8.9 mg/dL (8.5-10.1); Chloride 104 mmol/L (98-107); EST Glomerular Filtration Rate 48 mL/min (>60); Est Glom Filt Rate - Afr Amer 57 mL/min (>60); Glucose 102 mg/dL (74-106); Potassium 3.7 mmol/L (3.5-5.1); Sodium Level 139 mmol/L (136-145)
[2023-04-19 18:43] LABS: Xtra Tube EP Lab EXTRA TUBE
== END | disposition home or self-care (01) ==
LOC: PAVLAB 10:33
PROVIDERS: PCP Internal Medicine; Referring Provider Surgery; Visit Provider Surgery
DX: I72.3 Aneurysm of iliac artery (principal)
CPT/HCPCS: 36415; 80048

== ENCOUNTER → 2023-05-26 | Outpatient (CLI) | payer MEDICARE, OTHER, SELFPAY ==
--- NOTE | 2023-05-26 14:02 | CT_ITS ---
INDICATION: ASSESS FOR ENDO-LEAK EXAMINATION: CTA abdomen and pelvis - TECHNIQUE: Routine abdominal CT angiogram protocol was performed with IV contrast. MIP images provided. A radiation dose optimization technique was used for this scan. IV Contrast dosage and agent: Radiation dose DLP 603.14 mGy / cm. COMPARISON: None. FINDINGS: Lung bases: Interstitial emphysematous changes in the lung bases. Liver: Liver is mildly enlarged and fatty infiltrated. No space-occupying lesions. No bile ductal dilatation. Gallbladder: Normal. Spleen: Spleen is enlarged but homogeneous attenuation Adrenal gland: Normal. Kidneys: Normal. No hydronephrosis or stone formation. Pancreas:Normal. Bowel gas pattern: Nonspecific ileus with diffuse fecal retention in colon. Scattered diverticular changes of the colon without evidence for acute.. Appendix: No evidence for acute appendicitis. Free air: None. Free fluid: None. Pelvis: Pelvic organs: No mass lesion noted. Bone survey: Lumbar spine demonstrates degenerative change. A right hip prosthesis is noted No aggressive bony lesions. No acute fractures. Adenopathy: No significant pathologic adenopathy detected. 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 Vascular: Atherosclerotic changes of the aorta. There is distal aortic aneurysm measuring approximately 4.8 x 5 cm. Aortic and bilateral common iliac stents are noted. There is a type I endoleak supplying small arterial branches in the left lower quadrant.. CT/CTA Abd/Pelvis W/WO Contrast IMPRESSION: Atherosclerotic changes of aorta with distal abdominal aortic aneurysm. . There is an aortic and bilateral common iliac endograft noted There is a type I endoleak noted supplying small vascular branches in the left lower abdomen. Other findings as above Electronically Signed: Gavin Valadez MD at 23:05 EDT ,
[2023-05-26 14:15] VITALS: BP 159/79; PULSE 63; RESP 16; O2SAT 97; BMI 25.4
[2023-05-26 14:44] LABS: CREATININE FINGERSTICK 1.1 mg/dL (0.70-1.30); EGFR FINGERSTICK > 60.0000 mL/min (>60)
== END | disposition home or self-care (01) ==
LOC: CT 14:00
PROVIDERS: PCP Internal Medicine; Referring Provider Physician Assistant; Visit Provider Physician Assistant
DX: T82.330A Leakage of aortic (bifurcation) graft (replacement), initial encounter (principal); I71.40 Abdominal aortic aneurysm, without rupture, unspecified; X58.XXXA Exposure to other specified factors, initial encounter
CPT/HCPCS: 74174; J7040; Q9967

== ENCOUNTER → 2023-08-03 | Outpatient (CLI) | payer MEDICARE, OTHER, SELFPAY ==
[2023-08-03 18:29] LABS: CRP < 2.90 mg/L (0.0-3.0)
[2023-08-05 16:09] LABS: Endomysial Antibody IgA Negative (Negative); Immunoglobulin A 362 mg/dL (61-437); t-Transglutaminase IgA <2 U/mL (0-3)
== END | disposition home or self-care (01) ==
LOC: MTLAB 15:03
PROVIDERS: PCP Internal Medicine; Referring Provider Internal Medicine Gastroenterology; Visit Provider Internal Medicine Gastroenterology
DX: R19.7 Diarrhea, unspecified (principal)
CPT/HCPCS: 36415; 82784; 83516; 86140; 86255

== ENCOUNTER → 2023-12-27 | Outpatient (CLI) | payer MEDICARE, OTHER, SELFPAY ==
--- NOTE | 2023-12-27 07:05 | CT_ITS ---
STUDY: CTA ABDOMEN AND PELVIS WITH CONTRAST REASON FOR EXAM: Male, 83 years old. Assess for endo leak -- Will need IV hydration prior to testing. Prior abdominal aortic aneurysm repair. RADIATION DOSAGE (If Supplied By Facility): CTDIvol = ( 23.51 ) mGy, DLP = ( 570.66 ) mGycm TECHNIQUE: Transaxial images were obtained from the dome of the diaphragm to the symphysis pubis without oral contrast. IV 100mL Isovue-370 was administered. Sagittal and coronal images were reconstructed. Individualized dose optimization techniques were used for this CT. COMPARISON: Comparison is made with prior study of May 26, 2023. FINDINGS: Small calcified granuloma in the lateral right lower lobe. Stable mild scarring at the lung bases more prominent at the right lung base. The visualized portions of the heart are within normal limits. Normal liver. Normal gallbladder and extrahepatic biliary system. Splenomegaly. Normal pancreas. Normal bilateral adrenal glands. Normal right kidney. Normal left kidney. Normal visualized stomach. Normal small intestine. Normal colon. The appendix is visualized and appears normal. Once again, endoluminal stent grafting is seen in the abdominal aorta with the aortic component as well as components in the right and left common iliac arteries. The grayling abdominal aorta as a transverse dimension of 5.1 cm. There is evidence of mural thrombus. Once again, a focal endoleak is seen along the left-sided of the graft. There is evidence of supply to small axial branches in the left lower quadrant. There has been no change. Normal inferior vena cava. Normal retroperitoneum. Normal urinary bladder. Normal abdominal wall. There are diffuse degenerative changes of the visualized lumbar spine. CT/CTA Abd/Pelvis W/WO Contrast IMPRESSION: Stable examination. Typed 1 endoleak noted supplying small vascular branches in the left lower quadrant. Electronically Signed: Jw Alcaraz MD at 11:12 EDT ,
[2023-12-27 07:28] VITALS: BP 148/72; PULSE 66; RESP 16; TEMP 36.6; O2SAT 95; BMI 25.0
[2023-12-27] MEDS: 0.9% Normal Saline (500mL Bag) 500 ML IV (07:39)
[2023-12-27 08:40] VITALS: BP 159/74; PULSE 67; RESP 16; O2SAT 97
== END | disposition home or self-care (01) ==
PROVIDERS: PCP Internal Medicine; Referring Provider Surgery; Visit Provider Surgery
DX: I72.3 Aneurysm of iliac artery (principal)
CPT/HCPCS: 74174; Q9967

== ENCOUNTER 2024-05-23 15:44 | Observation (INO) | payer MEDICARE, OTHER, SELFPAY ==
[2024-05-23] VITALS (22 sets, daily range): BP systolic 153–219; BP diastolic 78–121; PULSE 70–94; RESP 13–36; TEMP 36.6–37.2; O2SAT 93–99; BMI 23.4; BMI 23.3
--- NOTE | 2024-05-23 15:49 | EKG12_ITS ---
Test Reason : DIZZINESS Blood Pressure : / mmHG Vent. Rate : 082 BPM Atrial Rate : 082 BPM P-R Int : 152 ms QRS Dur : 090 ms QT Int : 406 ms P-R-T Axes : 017 025 004 degrees QTc Int : 474 ms Normal sinus rhythm Minimal voltage criteria for LVH, may be normal variant ( Sokolow-Lindsay ) Borderline ECG Confirmed by ISAIAH LAWTON, AMADOU ([id number]), web content editor BENITA NUNN ([id number]) on 05/25/2024 1:45:12 PM Referred By: SAUL Confirmed By:AMADOU COLON MD
[2024-05-23 16:42] LABS: Absolute Lymphocyte Count 0.99 X10^3/uL (0.83-4.51); Absolute Neutrophil Count 3.7 X10^3/uL (2.0-7.7); Basophil# 0.02 X10^3/uL; Basophil% 0.4 % (0-1); Eosinophil# 0.03 X10^3/uL; Eosinophils% 0.6 % (0-5); Hematocrit 41.6 % (40-54); Hemoglobin 13.2 g/dL (13.0-16.5); Lymphocyte # 0.99 X10^3/ul (0.83-4.51); Mean Corp Hgb Conc 31.7 g/dL (32-36); Mean Corpuscular Hgb 28.8 pg (27.0-32.0); Mean Corpuscular Volume 90.6 fL (80-94); Mean Platelet Vol. 10.2 fl (6.2-12.0); Monocyte# 0.42 X10^3/uL; Monocyte% 8.1 % (0-10); NRBC Flagged by Analyzer 0 % (0-5); Neutrophil # 3.72 X10^3/uL (2.7-7.7); Neutrophil % 71.5 % (47-70); Platelet Count 108 K/mm3 (150-450); RBC Distribution Width CV 15.6 % (11.6-14.6); RBC Distribution Width SD 52.4 fl (35.1-43.9); Red Blood Count 4.59 M/mm3 (4.6-6.2); White Blood Count 5.2 K/mm3 (4.4-11.0)
[2024-05-23 16:48] LABS: International Normalized Ratio 1.1
[2024-05-23 16:49] LABS: Partial Thromboplast Time 38.8 Seconds (24.1-36.2)
--- NOTE | 2024-05-23 16:49 | RAD_ITS ---
STUDY: X-RAY CHEST REASON FOR EXAM: Male, 84 years old. Stroke. DIZZY TECHNIQUE: Single frontal view of the chest. COMPARISON: April 01, 2023 FINDINGS: The lungs are clear and expanded. There is no demonstrated pleural abnormality. Normal size heart. There are calcified mediastinal lymph nodes. Normal visualized pulmonary arteries. Normal visualized aortic arch and descending thoracic aorta. Normal visualized thoracic spine. Normal visualized ribs, clavicles, and shoulders. There is no demonstrated abnormality of the visualized soft tissue structures of the upper abdomen. RAD/Chest 1 View (Portable) IMPRESSION: No acute disease Electronically Signed: Carl Gong MD at 17:16 EDT ,
[2024-05-23 16:54] LABS: Anion Gap 7 (5-15); BUN 34 mg/dL (7-18); BUN/Creat Ratio 25.8 RATIO (10-20); Calcium,Total 9.8 mg/dL (8.5-10.1); Chloride 108 mmol/L (98-107); Creatinine, Serum 1.32 mg/dL (0.70-1.30); EST Glomerular Filtration Rate 55 mL/min (>60); Est Glom Filt Rate - Afr Amer 66 mL/min (>60); Glucose 122 mg/dL (74-106); Potassium 4.1 mmol/L (3.5-5.1); Sodium Level 141 mmol/L (136-145)
--- NOTE | 2024-05-23 16:55 | EX.ED.DYSGE1 ---
HPI History of Present Illness Chief Complaint: Dizziness [facility] Medical History Abdominal aortic 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 Anemia Cardiology follow-up encounter Cough productive of purulent sputum 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, NYHA class 2 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 Diverticulosis Easy bruising Essential hypertension Excessive bleeding Former smoker History of echocardiogram History of IBS History of irregular heartbeat History of stress test Hyperlipidemia Irregular heart beat Lumbar disc disease Pre-operative cardiovascular examination Preop cardiovascular exam RSV (respiratory syncytial virus pneumonia) Shortness of breath Stenosis of right internal carotid artery Home Medications ?Medication ?Instructions ?Recorded ?Last Taken ?Type glucosamine-chondroitin 250 mg-200 1 tab PO DAILY supplement 05/17/19 05/21/24 History mg tablet (Osteo Bi-Flex) losartan 100 mg tablet 100 mg PO DAILY BP 05/17/19 05/21/24 History cholecalciferol (vitamin D3) 50 2,000 unit PO DAILY supplement 05/18/19 05/23/24 History mcg (2,000 unit) capsule coenzyme Q10 100 mg capsule 100 mg PO DAILY supplement 05/18/19 05/21/24 History garlic 1,000 mg capsule 1,000 mg PO DAILY supplement 05/18/19 05/21/24 History multivitamin 1 tab PO DAILY supplement 05/18/19 05/21/24 History ascorbic acid (vitamin C) 500 mg 2,000 mg PO DAILY supplement 02/14/20 05/23/24 History capsule carvedilol 12.5 mg tablet 12.5 mg PO BID heart #180 tabs 11/12/21 05/23/24 Rx doxazosin 8 mg tablet 8 mg PO QHS 05/23/24 05/22/24 History hydralazine 100 mg tablet 100 mg PO TID 05/23/24 05/23/24 History ketoconazole 2 % topical cream 1 applic topical BID RASH 05/23/24 05/22/24 History magnesium oxide 400 mg (241.3 mg 400 mg PO DAILY 05/23/24 05/21/24 History magnesium) tablet Allergy/AdvReac Type Severity Reaction Status Date / Time lisinopril Allergy Intermediate Rash Verified 05/23/24 15:46 atorvastatin calcium (From Allergy Other Verified 05/23/24 15:46 Lipitor) clonidine Allergy Unknown Verified 05/23/24 15:46 rosuvastatin calcium (From Allergy Other Verified 05/23/24 15:46 Crestor) Orpmizz-ZPV-VqW Reductase Allergy Other Verified 05/23/24 15:46 Inhibitor (Jxdalgd-Haj-Htq Reductase Inhibitor) Family History Father Lung cancer Liver cancer Mother Oral cancer Surgical History History of back surgery History of blepharoplasty History of colonoscopy History of inguinal hernia repair History of right-sided carotid endarterectomy History of tonsillectomy History of total hip replacement History of total left knee replacement History of umbilical hernia repair Hx of appendectomy Hx of cataract surgery Social History Smoking Status: Former smoker second hand exposure: No alcohol intake: never substance use type: does not use caffeine: Yes Type: coffee Number of servings: 2 EXAM Physical Exam Const Vital Signs: 05/23/24 15:47 05/23/24 17:09 05/23/24 17:14 Temperature 98.2 F Temperature Source Temporal Pulse Rate 80 Respiratory Rate 18 Blood Pressure 187/114 H 219/107 H Blood Pressure Mean 138 134 Pulse Ox 99 Oxygen Delivery Method Room Air Room Air 05/23/24 17:17 05/23/24 17:36 05/23/24 17:45 Temperature Temperature Source Pulse Rate 80 90 83 Respiratory Rate 13 18 16 Blood Pressure 219/107 H Blood Pressure Mean 144 Pulse Ox 99 97 96 Oxygen Delivery Method Room Air 05/23/24 18:00 05/23/24 18:00 05/23/24 18:15 Temperature Temperature Source Pulse Rate 82 86 83 Respiratory Rate 25 H 19 H 20 H Blood Pressure 182/97 H 182/97 H Blood Pressure Mean 125 121 Pulse Ox 98 96 97 Oxygen Delivery Method 05/23/24 18:30 05/23/24 18:39 05/23/24 18:44 Temperature Temperature Source Pulse Rate 81 94 86 Respiratory Rate 18 22 H 18 Blood Pressure 194/121 H 189/108 H Blood Pressure Mean 142 135 Pulse Ox 96 93 98 Oxygen Delivery Method Room Air 05/23/24 18:45 05/23/24 19:00 05/23/24 19:27 Temperature Temperature Source Pulse Rate 87 82 Respiratory Rate 20 H 19 H 16 Blood Pressure 189/108 H 174/79 H 174/79 H Blood Pressure Mean 128 99 110 Pulse Ox 96 95 95 Oxygen Delivery Method Room Air [facility] Narrative Medical decision making narrative: HISTORY OF PRESENT ILLNESS: 84-year-old male presents with concern for dizziness and I have been more off balance. Patient states his last known well was 48 hours ago. Notes has been more off balance especially ambulation. Denies headache, chest pain, recent illness. Denies any vomiting or diarrhea. Denies any bleeding diathesis. Denies any abdominal pain REVIEW OF SYSTEMS: Pertinent positives: Dizziness, feeling off balance Pertinent negatives: Shortness of breath, chest pain, leg swelling PHYSICAL EXAM: Nursing triage notes reviewed, Vital signs reviewed Constitutional: please see [facility] HENT: MMM Eyes: Pupils equal round and reactive to light, Extraocular muscles intact Neck: No stridor, no JVD, full neck ROM Lungs: Clear to auscultation, No wheezing or rales. No increased work of breathing, no conversational dyspnea, no accessory muscle use, no nasal flaring. No respiratory distress noted Heart: Regular rate and rhythm, No murmurs, No rubs and No gallops, 2+ distal pulses (radial, femoral, posterior tibial) in all extremities Abdomen: Soft, there is no tenderness, rigidity, rebound or guarding, no obvious peritoneal signs, no palpable pulsatile abdominal masses, no auscultated abdominal bruit : No CVAT Extremities: No edema Neuro: No focal neurological deficits, cranial nerves II through XII intact, 5/5 strength in all extremities. Intact sensation to light touch in all extremities, 2+ reflexes bilateral patella tendons. Normal gait. No ataxia. Skin: No rash or lesions noted MEDICAL DECISION MAKING: Chief Complaint: Dizziness, feeling off balance External records reviewed: Carotid duplex reviewed from 2022, CTA of the neck shows high-grade stenosis origin right internal and external carotid arteries Co. percent narrowing of the left internal carotid artery Factors affecting care: Does have heart failure, hyperlipidemia, hypertension, lumbar disc disease Social determinants of health: Elderly History obtained from others: none Consults: Internal medicine open see Dr. Felton) [facility] Narrative: Patient was initially hypertensive with a blood pressure 187/114 otherwise afebrile and nontoxic-appearing. Exam with NIH of 0, no focal deficits, no significant ataxia, truncal ataxia or gait ataxia. I considered the following differential diagnosis: posterior circulation CVA, large vessel occlusion, carotid or other intracranial dissection ALL IMAGES (IF OBTAINED) HAVE BEEN PERSONALLY REVIEWED AND INTERPRETED BY MYSELF. Protocol orders were initially placed secondary to poor department conditions including high volume and high acuity. Orders were placed including CBC, coags, BMP CBC showed no leukocytosis, no anemia but noted thrombocytopenia which is baseline PTT slightly elevated however no other signs of coagulopathy BMP without significant electrolyte disturbances, noted CKD, no evidence of metabolic acidosis or endorgan hypoperfusion I added CTA of the head neck, Noncon CT of the head, CT of the head neck, EKG, troponin EKG with normal sinus rhythm, normal axis, no intervals, no STEMI High-sensitivity troponin is negative, no evidence of myocardial ischemia CTA of the head neck, Noncon CT scan of the head showed no evidence of ICH, new large vessel occlusion, noted stable carotid artery abnormalities. Patient was ambulated for a second time. He noted subjective ataxia although RN noted the patient had a stable gait. On reevaluation patient's blood pressure improved to 174/79 Given ongoing ataxia, advanced age and concern for posterior circulation CVA will admit for MRI and further evaluation. Discussed with hospitalist The patient and/or family, caregivers express understanding. The patient and/or family, caregivers agrees with the plan. Shared decision making: I will have a discussion with the patient and or visitors regarding risk/benefits of further testing or admission. They will be made aware of of the risk/benefits inherent in this decision they will be given the opportunity to voice understanding. Total critical care time today provided was at least 0 minutes. This excludes separately billable procedures. Critical care time (if documented) is secondary to the patient having high probability of clinically significant/life threatening deterioration in the patient's condition which required my urgent intervention. Impression: 1. Gait intact 2. History of hypertension 3. History of hyperlipidemia Dispo: Admit to [facility] This note was generated with Gydget dictation software. It may contain incorrect words, spelling, and punctuation that were not noted in review of the chart prior to signing. Lab Data Labs: Laboratory Results - last 24 hr 05/23/24 05/23/24 16:30 16:50 WBC 5.2 RBC 4.59 L Hgb 13.2 Hct 41.6 MCV 90.6 MCH 28.8 MCHC 31.7 L RDW Std Deviation 52.4 H RDW Coeff of Erma 15.6 H Plt Count 108 L MPV 10.2 Immature Gran % (Auto) 0.400 Neut % (Auto) 71.5 H Lymph % (Auto) 19.0 [place] % (Auto) 8.1 Eos % (Auto) 0.6 Baso % (Auto) 0.4 Absolute Neuts (auto) 3.7 Absolute Lymphs (auto) 0.99 Nucleated RBC % 0 PT 14.0 INR 1.1 APTT 38.8 H Sodium 141 Potassium 4.1 Chloride 108 H Carbon Dioxide 26.0 Anion Gap 7 BUN 34 H Creatinine 1.32 H Estim Creat Clear Calc 40.30 Est GFR (MDRD) Af Amer 66 Est GFR (MDRD) Non-Af 55 L BUN/Creatinine Ratio 25.8 H Glucose 122 H Calcium 9.8 Troponin I High Sens 34 Radiography Diagnostic Testing: Clinical Impression(s) from Imaging Studies Chest X-Ray 05/23/24 16:49 IMPRESSION: No acute disease Electronically Signed: Carl Gong MD at 17:16 EDT Reading Location ID and State: [address] [place] [address] Tel , Service support , Head/Neck CTA 05/23/24 17:12 IMPRESSION: 50-70% stenosis proximal right ICA. No change. Calcified plaque noted at the origin of vertebral arteries with possible mild stenosis unchanged. Electronically Signed: Carl Gong MD at 19:04 EDT Reading Location ID and State: [address] [place] [address] Tel , Service support , Discharge Plan Triage Chief Complaint: Dizziness ED Provider: Ganga Benito Dx/Rx/DC Orders Prescriptions: No Action coenzyme Q10 100 mg capsule 100 mg PO DAILY garlic 1,000 mg capsule 1,000 mg PO DAILY cholecalciferol (vitamin D3) 2,000 unit capsule 2,000 unit PO DAILY multivitamin Tablet 1 tab PO DAILY losartan 100 mg tablet 100 mg PO DAILY glucosamine-chondroitin [Osteo Bi-Flex] 250-200 mg tablet 1 tab PO DAILY ascorbic acid (vitamin C) 500 mg capsule 2,000 mg PO DAILY carvedilol 12.5 mg tablet 12.5 mg PO BID Qty: 180 0RF magnesium oxide 400 mg (241.3 mg magnesium) tablet 400 mg PO DAILY doxazosin 8 mg tablet 8 mg PO QHS hydralazine 100 mg tablet 100 mg PO TID ketoconazole 2 % cream 1 applic topical BID Primary Care Provider: Dallas Reed Referrals: Dallas Reed MD [Primary Care Provider] - Print Language: Setswana
--- NOTE | 2024-05-23 17:12 | CT_ITS ---
STUDY: CTA HEAD AND NECK WITH CONTRAST REASON FOR EXAM: Male, 84 years old. dizziness RADIATION DOSAGE (If Supplied By Facility): CTDIvol = ( 26.31 ) mGy, DLP = ( 1517.05 ) mGycm TECHNIQUE: CT angiography was performed with a multi-detector CT scanner. Data acquisition was obtained from the skull base through the vertex following intravenous administration of IV 100mL Isovue-[id number]. MIP images were reconstructed from the axial data set. Post-processing of the angiographic images was performed, with multiplanar reformation and 3D reconstruction. Individualized dose optimization techniques were used for this CT. The protocol utilizes one or more of the following dose reduction techniques: automated exposure control, adjustment of mA and/or kV according to patient size,and/or use of iterative reconstruction technique. COMPARISON: No relevant priors. FINDINGS: Normal bilateral petrous carotid arteries. Normal right cavernous carotid artery with a normal supraclinoid bifurcation. Normal left cavernous carotid artery with a normal supraclinoid bifurcation. Normal right A1 segments of the anterior cerebral artery. Normal left A1 segments of the anterior cerebral artery. There is non-visualization of the anterior communicating artery (ACOM). Normal bilateral A2 segments of the anterior cerebral arteries. Normal right M1 and M2 segments of the middle cerebral arteries, with a normal M1 bifurcation. Normal left M1 and M2 segments of the middle cerebral arteries, with a normal M1 bifurcation. There is non-visualization of the right posterior communicating artery (PCOM). There is non-visualization of the left posterior communicating artery (PCOM). Normal bilateral vertebral arteries. Normal basilar artery with a normal basilar bifurcation. The visualized bilateral superior cerebellar (SCA) arteries are normal. Normal bilateral P1, P2 and visualized P3 segments of the posterior cerebral arteries. There is no demonstrated aneurysm of the north fork of Sanchez. There is no demonstrated abnormality of the visualized brain. AORTIC ARCH: Normal visualized aortic arch. Normal origins of the brachiocephalic, left common carotid, and left subclavian arteries. RIGHT CAROTID ARTERIES: Normal right common carotid artery (CCA). Moderate mixed plaque with 50-70% % stenosis and possible ulceration unchanged. Normal origin of the right internal carotid (ICA) artery without a hemodynamically significant stenosis. Normal visualized cervical portion of the right internal carotid artery. Normal origin of the right external carotid artery (ECA). LEFT CAROTID ARTERIES: Normal left common carotid artery (CCA). There is mild atherosclerotic plaque formation with minimal narrowing of the left carotid bulb. There is mild atherosclerotic plaque formation of the origin of the left internal carotid artery with less than 50% cross sectional diameter stenosis. Normal visualized cervical portion of the left internal carotid artery. Normal origin of the left external carotid artery (ECA). VERTEBRAL ARTERIES: Calcified plaque at the origin of both vertebral arteries with possible mild stenosis unchanged. CT/CTA Head AND Neck W/ Contrast IMPRESSION: 50-70% stenosis proximal right ICA. No change. Calcified plaque noted at the origin of vertebral arteries with possible mild stenosis unchanged. Electronically Signed: Carl Gong MD at 19:04 EDT ,
[2024-05-23 18:39] LABS: Troponin-I HS 34 pg/mL (3.0-78.0)
[2024-05-23] MEDS: Carvedilol 25 MG Tablet PO (18:46)
--- NOTE | 2024-05-23 19:33 | ED.RN ---
After test ambulation patient noted I feel more unsteady than normal, hence the cane, but not as bad as yesterday and this morning.
--- NOTE | 2024-05-23 19:59 | PCM.HP.STD ---
HPI - General General Date of Admission: 05/23/24 Date of Service: 05/23/24 Chief Complaint: Imbalance, dizziness. HPI Narrative The patient is an 84 y/o M w/ PMHx: IBS, AAA s/p repair, Former tobacco use, Carotid disease (R ICA s/p R CEA), HFpEF, HTN, HLD, Chronic thrombocytopenia, CKD stage III per GFR trending who presents to the [facility] ED on 05/23/2024 with history of feeling off balance and dizzy with last known well approximately 48 hours prior more notable with ambulation with no recent headache or any other remarkably noted neurological findings but given ongoing prompted eventual ED evaluation to be cautious. Patient states that he has not been taking any antiplatelet therapy including even a baby aspirin. Initial ED evaluation NIH stroke scale 0 with no evidence of any focal deficits or ataxia. Patient notes that he was recently evaluated for the symptoms given ongoing and persistent by ENT however they noted concern that potentially it was because of his blood pressure but upon blood pressure check he noted that his pressure was high and not low. Workup in the ED included T98.2, heart rate 80, BP 187/114, respiratory rate 18, 99% on room air with most recent repeat vital sign heart rate 82, BP 174/79, respiratory rate 16, 95% on room air, CBC with WBC 5.2, hemoglobin 13.2, MCV 90.6, platelet 108 without marked shift, unremarkable coags aside PTT 38.8, BMP with chloride 108, BUN/creatinine 34/1.32, GFR 55, glucose 122, troponin 34, chest x-ray with no acute cardiopulmonary findings, CTA head and neck with 50 to 70% stenosis of the proximal right ICA with no change reportedly from previous per radiology note, CT of the head with no evidence of any acute intracranial findings, EKG with sinus rhythm with no acute evidence of ischemia. [facility] Medical History History of echocardiogram Easy bruising Excessive bleeding History of IBS Former smoker History of stress test Cardiology follow-up encounter History of irregular heartbeat Preop cardiovascular exam Irregular heart beat Stenosis of right internal carotid artery Abdominal aortic 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 Essential hypertension Lumbar disc disease 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 Hyperlipidemia Diverticulosis Pre-operative cardiovascular examination Anemia 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, NYHA class 2 RSV (respiratory syncytial virus pneumonia) Shortness of breath Cough productive of purulent sputum Home Medications ?Medication ?Instructions ?Recorded ?Last Taken ?Type glucosamine-chondroitin 250 mg-200 1 tab PO DAILY supplement 05/17/19 05/21/24 History mg tablet (Osteo Bi-Flex) losartan 100 mg tablet 100 mg PO DAILY BP 05/17/19 05/21/24 History cholecalciferol (vitamin D3) 50 2,000 unit PO DAILY supplement 05/18/19 05/23/24 History mcg (2,000 unit) capsule coenzyme Q10 100 mg capsule 100 mg PO DAILY supplement 05/18/19 05/21/24 History garlic 1,000 mg capsule 1,000 mg PO DAILY supplement 05/18/19 05/21/24 History multivitamin 1 tab PO DAILY supplement 05/18/19 05/21/24 History ascorbic acid (vitamin C) 500 mg 2,000 mg PO DAILY supplement 02/14/20 05/23/24 History capsule carvedilol 12.5 mg tablet 12.5 mg PO BID heart #180 tabs 11/12/21 05/23/24 Rx doxazosin 8 mg tablet 8 mg PO QHS 05/23/24 05/22/24 History hydralazine 100 mg tablet 100 mg PO TID 05/23/24 05/23/24 History ketoconazole 2 % topical cream 1 applic topical BID RASH 05/23/24 05/22/24 History magnesium oxide 400 mg (241.3 mg 400 mg PO DAILY 05/23/24 05/21/24 History magnesium) tablet Allergy/AdvReac Type Severity Reaction Status Date / Time lisinopril Allergy Intermediate Rash Verified 05/23/24 15:46 atorvastatin calcium (From Allergy Other Verified 05/23/24 15:46 Lipitor) clonidine Allergy Unknown Verified 05/23/24 15:46 rosuvastatin calcium (From Allergy Other Verified 05/23/24 15:46 Crestor) Vhxlsne-SZO-ZjS Reductase Allergy Other Verified 05/23/24 15:46 Inhibitor (Aynbvte-Esy-Fjy Reductase Inhibitor) Family History Father Lung cancer Liver cancer Mother Oral cancer Surgical History (Updated 05/23/24 @ 20:[address] Margy Stark MD) S/P AAA repair History of right-sided carotid endarterectomy Hx of cataract surgery Hx of appendectomy History of tonsillectomy History of back surgery History of colonoscopy History of blepharoplasty History of inguinal hernia repair History of umbilical hernia repair 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 Social History household members: spouse Smoking Status: Former smoker second hand exposure: No alcohol intake: never substance use type: does not use caffeine: Yes Type: coffee Number of servings: 2 ROS ROS Narrative Admission Review of Systems: CONSTITUTIONAL: No weight loss, fever, chills, + weakness or fatigue. HEENT: + Dizziness, lightheadedness. Eyes: No visual loss, blurred vision, double vision or yellow sclerae. Ears, Nose, Throat: No hearing loss, sneezing, congestion, runny nose or sore throat. SKIN: No rash or itching, lesions, wounds. CARDIOVASCULAR: No chest pain, chest pressure or chest discomfort, palpitations, edema, orthopnea, syncopal events. RESPIRATORY: No shortness of breath, cough or sputum, wheezing, hemoptysis. GASTROINTESTINAL: No anorexia, nausea, vomiting or diarrhea, abdominal pain, melena, BRBPR. GENITOURINARY: No dysuria, frequency, urgency or retention. NEUROLOGICAL: + Dizziness, lightheadedness, imbalance. No headache, syncope, paralysis, numbness or tingling in the extremities, focal weakness, change in bowel or bladder control, seizure. MUSCULOSKELETAL: + muscle, back pain, joint pain or stiffness. HEMATOLOGIC: + History of anemia, easy bleeding/bruising. LYMPHATICS: No enlarged nodes. No history of splenectomy. PSYCHIATRIC: No history of depression or anxiety. ENDOCRINOLOGIC: No reports of sweating, cold or heat intolerance. No polyuria or polydipsia. ALLERGIES: No history of asthma, hives, eczema or rhinitis. Vital Signs Vital Signs Vital Signs: 05/23/24 15:47 05/23/24 17:09 05/23/24 17:14 Temperature 98.2 F Temperature Source Temporal Pulse Rate 80 Respiratory Rate 18 Blood Pressure 187/114 H 219/107 H Blood Pressure Mean 138 134 Pulse Ox 99 Oxygen Delivery Method Room Air Room Air 05/23/24 17:17 05/23/24 17:36 05/23/24 17:45 Temperature Temperature Source Pulse Rate 80 90 83 Respiratory Rate 13 18 16 Blood Pressure 219/107 H Blood Pressure Mean 144 Pulse Ox 99 97 96 Oxygen Delivery Method Room Air 05/23/24 18:00 05/23/24 18:00 05/23/24 18:15 Temperature Temperature Source Pulse Rate 82 86 83 Respiratory Rate 25 H 19 H 20 H Blood Pressure 182/97 H 182/97 H Blood Pressure Mean 125 121 Pulse Ox 98 96 97 Oxygen Delivery Method 05/23/24 18:30 05/23/24 18:39 05/23/24 18:44 Temperature Temperature Source Pulse Rate 81 94 86 Respiratory Rate 18 22 H 18 Blood Pressure 194/121 H 189/108 H Blood Pressure Mean 142 135 Pulse Ox 96 93 98 Oxygen Delivery Method Room Air 05/23/24 18:45 05/23/24 19:00 05/23/24 19:27 Temperature Temperature Source Pulse Rate 87 82 Respiratory Rate 20 H 19 H 16 Blood Pressure 189/108 H 174/79 H 174/79 H Blood Pressure Mean 128 99 110 Pulse Ox 96 95 95 Oxygen Delivery Method Room Air Weight Weight: 154 lb 6.4 oz Body Mass Index (BMI) 23.4 Physical Exam Narrative Physical Examination: General: Awake, alert, oriented x 3 and cooperative, seated upright in the ED bed, fatigued otherwise no acute distress, currently denies any dizziness sensation Skin: Normal color, normal turgor, no icterus, no cyanosis except occasional staged ecchymoses, bilateral lower extremity venous stasis skin changes HEENT: AT/NC, EOMI, PERRLA, MMM, no carotid bruits or JVD noted. Lungs: Mildly diminished, greater bases, poor effort, no rales, ronchi or wheezing. Heart: Regular rate and rhythm; no gallop, rub audible. Abdomen: Soft, NTTP, ND, mildly hyperactive BS, no HSM. Extremities: No cyanosis, clubbing, or edema. Neurological: Patient awake, alert, oriented as noted, cognitive function intact; pupils equally reactive to light and accommodation, cranial nerves grossly normal, moving all 4 extremities, no focal deficits, finger-nose and icik-ob-xnvs appropriate, sensation intact, no apparent ataxia evident. Psychiatric: Affect appears mildly fatigued otherwise normal, no acute evidence of depressive or anxiety feelings. Results Lab / Micro Data 05/23/24 16:30 05/23/24 16:30 Labs: Laboratory Results - last 24 hr 05/23/24 16:30: WBC 5.2, RBC 4.59 L, Hgb 13.2, Hct 41.6, MCV 90.6, MCH 28.8, MCHC 31.7 L, RDW Std Deviation 52.4 H, RDW Coeff of Erma 15.6 H, Plt Count 108 L, MPV 10.2, Immature Gran % (Auto) 0.400, Neut % (Auto) 71.5 H, Lymph % (Auto) 19.0, [place] % (Auto) 8.1, Eos % (Auto) 0.6, Baso % (Auto) 0.4, Absolute Neuts (auto) 3.7, Absolute Lymphs (auto) 0.99, Nucleated RBC % 0, PT 14.0, INR 1.1, APTT 38.8 H, Sodium 141, Potassium 4.1, Chloride 108 H, Carbon Dioxide 26.0, Anion Gap 7, BUN 34 H, Creatinine 1.32 H, Estim Creat Clear Calc 40.30, Est GFR (MDRD) Af Amer 66, Est GFR (MDRD) Non-Af 55 L, BUN/Creatinine Ratio 25.8 H, Glucose 122 H, Calcium 9.8 05/23/24 16:50: Troponin I High Sens 34 Imaging Radiology Impression Chest X-Ray 05/23/24 16:49 IMPRESSION: No acute disease Electronically Signed: Carl Gong MD at 17:16 EDT Reading Location ID and State: [address] [place] [address] Tel , Service support , Head/Neck CTA 05/23/24 17:12 IMPRESSION: 50-70% stenosis proximal right ICA. No change. Calcified plaque noted at the origin of vertebral arteries with possible mild stenosis unchanged. Electronically Signed: Carl Gong MD at 19:04 EDT Reading Location ID and State: [facility] / [place] Tel , Service support , Assessment & Plan Assessment/Plan (1) TIA (transient ischemic attack): PLAN: Plan The patient is an 84 y/o M w/ PMHx: IBS, AAA s/p repair, Former tobacco use, Carotid disease (R ICA s/p R CEA), HFpEF, HTN, HLD, Chronic thrombocytopenia, CKD stage III per GFR trending who presents to the [facility] ED on 05/23/2024 with history of feeling off balance and dizzy with last known well approximately 48 hours prior more notable with ambulation with no recent headache or any other remarkably noted neurological findings but given ongoing prompted eventual ED evaluation to be cautious. #1. Imbalance, dizziness concerning for possible posterior CVA complicated by #2: Will admit to PCU, will obtain MRI Brain, ECHO, PT/OT/Speech/Nutrition evaluation per protocol. Will allow permissive HTN, administer full-strength aspirin therapy and reinitiate on baby aspirin daily, noted statin allergy. Mag, TSH, FLP, HgbA1c requested. Maintain on fall and aspiration precautions. Once work-up obtained low threshold to obtain Neurology consultation. #2. Carotid disease: ED evaluation included CTA head and neck with 50 to 70% stenosis of the proximal right ICA. Patient with history of previous right-sided carotid endarterectomy per Dr. Perez per his report, unfortunately notes he has not followed up given Dr. Perez recent [facility], will need follow-up with Dr. Haas at discharge, will maintain on aspirin, noted statin allergy, temporary permissive hypertension as noted above. #3. AAA: Status post repair, most recent imaging noted CTA abdomen pelvis/05/13 with contrast with stable examination, type I endoleak noted supplying small vascular branches and left lower quadrant, encouraged patient reestablished with vascular surgery as previously been following with Dr. Perez, will need follow-up with Dr. Haas at discharge. #4. Hypertension: Will maintain permissive hypertension temporarily with as needed agents per stroke protocol as noted above. #5. Hyperlipidemia: Not on statin therapy, noted allergy but attempting to clarify, FLP in AM. #6. HFpEF: No echocardiogram noted in the system, echo ordered as noted above, will maintain on reinitiated aspirin therapy, noted statin allergy, maintaining temporary permissive hypertension as noted above, add back regimen once appropriate, judicious hydration if necessary. #7. Chronic Kidney Disease Stage III per GFR trending, unclear subtype: Admission BUN/Cr 34/1.32, GFR currently 55, baseline renal function 1.1-1.5, repeat BMP in AM. #8. Chronic thrombocytopenia, unclear etiology: Admission platelets 108, baseline noted most recently 107-130 range starting in March 2023, continue to trend especially given re-addition of baby aspirin as noted. #9. Former tobacco use: Encourage continued tobacco cessation. #10. DVT prophylaxis: Lovenox. #11. CODE status: Patient JOSH is his who was present and living will is currently in place. Discussed CODE status at length including difference between FULL code, DNR-CCA and DNR-CC status. Following discussions about the differences in these status, requested DNR-CCA, no intubation status. Advanced Care Planning Face to Face Time: 16 minutes. Charges/Coding Visit Charges Inpatient E&M: 74664 Init Hosp L3 Procedures Hospitalists Procedures: 44666 Advncd Care Plan 30 Min
[2024-05-23 21:28] LABS: Magnesium 2.4 mg/dL (1.6-2.6)
--- NOTE | 2024-05-23 23:06 | ECHOD_ITS ---
Reason For Study: TIA/CVA Procedure This was a 2D Doppler, Color Flow transthoracic echocardiogram. Exam performed portable in patient room. Left Ventricle Normal LV size. Left ventricular systolic function is normal. The left ventricular ejection fraction is 55 %. No regional wall motion abnormalities noted. Right Ventricle Normal RV size. Normal systolic function. Atria The left atrium is mildly enlarged. Normal right atrium. Bubble contrast study negative for right to left interatrial shunt. Mitral Valve There is mild mitral annular calcification. Tricuspid Valve Normal tricuspid valve. Aortic Valve Trisinus/trileaflet aortic valve. Mild focal aortic valve thickening. Pulmonic Valve Normal pulmonic valve. Great Vessels Normal aortic root. The pulmonary artery is normal size. Inferior vena cava collapse with respiration. Pericardium/Pleural No pericardial effusion. Medication Performed a rapid injection of agitated mix of 9 cc saline and 1cc air to assess for atrial septal defect. MMode/2D Measurements & Calculations LVIDd: 5.0 cm IVSd: 1.3 cm Ao root diam: 3.5 cm LVIDs: 3.6 cm LVPWd: 1.3 cm RVDd: 3.6 cm FS: 29.0 % LAV(MOD-bp): 77.9 ml LVAd ap4: 32.6 cm2 SV(MOD-sp4): 60.1 ml LAV(MOD-bp) Indexed: 42.7 ml/m2 LVLd ap4: 8.2 cm LAV(MOD-sp2): 71.1 ml EDV(MOD-sp4): 107.3 ml LAV(MOD-sp4): 82.4 ml EDV(sp4-el): 109.3 ml LVAs ap4: 18.7 cm2 LVLs ap4: 6.2 cm ESV(MOD-sp4): 47.2 ml ESV(sp4-el): 47.8 ml EF(MOD-sp4): 56.0 % EF(sp4-el): 56.3 % SV(sp4-el): 61.5 ml LA A4 area: 24.3 cm2 LA dimension(2D): 4.5 cm RA A4 area: 16.1 cm2 TAPSE: 2.3 cm Time Measurements MV dec time: 0.20 sec Doppler Measurements & Calculations MV E max yunior: 101.5 cm/sec Lat Peak E' Yunior: 10.0 cm/sec Med Peak E' Yunior: 5.9 cm/sec MV A max yunior: 79.3 cm/sec E/E' lat: 10.1 E/E' med: 17.3 MV E/A: 1.3 MV V2 max: 107.3 cm/sec MV P1/2t max yunior: 107.6 cm/sec Ao V2 max: 159.8 cm/sec MV max P.6 mmHg MV P1/2t: 84.5 msec Ao max P.2 mmHg MV V2 mean: 56.7 cm/sec MV dec slope: 372.9 cm/sec2 Ao V2 mean: 104.8 cm/sec MV mean P.5 mmHg MVA(P1/2t): 2.6 cm2 Ao mean P.9 mmHg MV V2 VTI: 38.9 cm Ao V2 VTI: 33.9 cm AV (velocity ratio): 0.70 LV V1 max: 94.2 cm/sec PA V2 max: 96.6 cm/sec PI dec slope: 199.1 cm/sec2 LV V1 max P.5 mmHg PA V2 mean: 69.6 cm/sec LV V1 mean P.4 mmHg LV V1 mean: 73.5 cm/sec LV V1 VTI: 23.8 cm ECHO/Echo Complete Interpretation Summary Normal LV size. Left ventricular systolic function is normal. The left ventricular ejection fraction is 55 %. The left atrium is mildly enlarged. Bubble contrast study negative for right to left interatrial shunt. Ordering Physician: Margy Stark Referring Physician: Dallas Reed Performed By: Kala Dc, KATHRYN, RVT
[2024-05-23] MEDS: 0.9% Normal Saline (1000mL) 1,000 ML 75 ML IV (23:24)
[2024-05-24] MEDS: Aspirin 325 MG Tablet PO (00:14)
[2024-05-24 01:32] VITALS: O2SAT 94
[2024-05-24 02:20] VITALS: BMI 23.3
[2024-05-24 03:37] VITALS: BMI 23.3
[2024-05-24 03:57] VITALS: BP 168/93; PULSE 71; RESP 16; TEMP 36.6; O2SAT 97
[2024-05-24 07:27] LABS: Absolute Lymphocyte Count 1.12 X10^3/uL (0.83-4.51); Absolute Neutrophil Count 3.5 X10^3/uL (2.0-7.7); Basophil# 0.04 X10^3/uL; Basophil% 0.7 % (0-1); Eosinophil# 0.08 X10^3/uL; Eosinophils% 1.5 % (0-5); Hematocrit 34.3 % (40-54); Lymphocyte # 1.12 X10^3/ul (0.83-4.51); Lymphocyte % 20.9 % (19-41); Mean Corp Hgb Conc 32.1 g/dL (32-36); Mean Corpuscular Hgb 29.3 pg (27.0-32.0); Mean Corpuscular Volume 91.2 fL (80-94); Mean Platelet Vol. 11.3 fl (6.2-12.0); Monocyte# 0.58 X10^3/uL; Monocyte% 10.8 % (0-10); NRBC Flagged by Analyzer 0 % (0-5); Neutrophil % 65.5 % (47-70); POSITIVE COUNT YES; Platelet Count 90 K/mm3 (150-450); RBC Distribution Width CV 15.6 % (11.6-14.6); RBC Distribution Width SD 51.5 fl (35.1-43.9); Red Blood Count 3.76 M/mm3 (4.6-6.2); White Blood Count 5.4 K/mm3 (4.4-11.0)
[2024-05-24 07:40] LABS: Hemoglobin A1c 4.8 % (3.8-5.6)
[2024-05-24 07:55] LABS: Differential Indicated SCAN CRITERIA MET
[2024-05-24 07:57] VITALS: BP 162/64; PULSE 59; RESP 16; TEMP 36.4; O2SAT 95
[2024-05-24 08:23] LABS: ALB/GLOB Ratio 0.8 RATIO (0.9-2.4); AST(SGOT) 21 U/L (15-37); Alanine Aminotransfer ALT/SGPT 22 U/L (16-61); Albumin, Serum 2.8 g/dL (3.2-5.0); Alkaline Phosphatase 52 U/L (45-117); Anion Gap 6 (5-15); BUN 29 mg/dL (7-18); Calcium,Total 8.5 mg/dL (8.5-10.1); Chloride 110 mmol/L (98-107); Cholesterol 180 mg/dL (200); Creatinine, Serum 1.26 mg/dL (0.70-1.30); EST Glomerular Filtration Rate 58 mL/min (>60); Est Glom Filt Rate - Afr Amer 70 mL/min (>60); Estimated Creatinine Clearance 42.22 ml/min; Globulin 3.5 g/dL (2.2-4.2); Glucose 91 mg/dL (74-106); High Density Lipoprotein 44 mg/dL; Potassium 3.6 mmol/L (3.5-5.1); Protein, Total 6.3 g/dL (6.4-8.2); Sodium Level 141 mmol/L (136-145); Triglycerides 76 mg/dL; Very Low Density Lipoprotein 15 mg/dL (5-40)
[2024-05-24 08:37] VITALS: O2SAT 97
--- NOTE | 2024-05-24 10:15 | MRI_ITS ---
HISTORY: CVA, C/I DIZZINESS, OFF BALANCE. TECHNIQUE: Multiplanar and multisequence MR images of the brain were obtained without contrast. 284 images. COMPARISON: CT prior day. FINDINGS: BRAIN PARENCHYMA: Mild periventricular white matter changes. No abnormal focus of restricted diffusion. No acute intracranial hemorrhage identified. CSF SPACES: Mild volume loss. No significant midline shift or other mass effect.No extra-axial fluid collection. VASCULAR SYSTEM: Major intracranial flow voids are maintained. PARANASAL SINUSES AND MASTOID AIR CELLS: Trace fluid within the left mastoid air cells. ORBITS: Bilateral lens resections. MRI/Brain without Contrast IMPRESSION: No evidence for acute infarct. Mild chronic involutional and white matter changes. Electronically Signed: Valerie Alexandra MD at 11:25 EDT ,
--- NOTE | 2024-05-24 11:20 | CASEMGMT ---
RN CM Face to Face with patient for initial transition planning/care coordination assessment. RN CM introduced self and role at [facility]. Patient lying in bed, alert and oriented. Patient willing to participate in assessment and is able to answer all questions appropriately. Care providers, pharmacy, and demographics verified. Strata: 2 PCP: Derek Specialists: ramiro Loco Pharmacy: [facility] Insurance: [facility], [facility] supplement Prescription Benefit: yes Living Will/HPOA: yes, Libra Camejo LNOK: Living Arrangements: patient lives with and son in a 2 story home with bed and bath on first floor. Patient is independent at home. Transportation: self, DME/HHC: Patient has shower chair, raised toilet, cane, walker, and grab bars at home. Patient has been to TCU and [facility] in the past. Patient wishes to discharge home, denies need for home health at this time. Patient states he has no further needs or concerns at this time. CM to follow for discharge planning needs that may arise. Disposition Plan: Patient to discharge home with family support and follow-up plans in place. Felicita RECIO, RN, CM
--- NOTE | 2024-05-24 11:36 | DCINST_ITS ---
Discharge Instructions Diet Discharge Diet: Low fat / Low cholesterol and 2000 mg Sodium Diet Activity Discharge Activity: Return to Normal Activity Weight Bearing Status: Weight bearing as tolerated Dressing / Incision Call your doctor if you observe: Fever of 101 or Higher, Coldness, Increased Pain, Numbness or Tingling, Change in Color, Inability to urinate, Inability to have a bowel movement, Shortness of breath, Dizziness, Fainting spells, Swelling in the ankles, Chest pain, Prolonged hiccupping, Increased palpitations (irregular heartbeat) and Calf discomfort Follow Up Care When: IN 2 WEEKS Test Results: Test results from this visit will be discussed in further detail at your follow- up appointment, if applicable. Discharge Plan Admission Admit Date/Time: 05/23/24 20:09 Primary Reason for Your Visit: tia Attending Provider: Brant Alcantara Primary Care Provider: Dallas Reed Consulting Providers: Alverto Cooley; Susan Isaac; Alia Santiago; Carine Rodríguez; Jaky Belle; John Mar; Nata Alvarez; Félix Lawrence; Haider Hendrix; Jesse Anaya; Luciana Guerra; Carlos Lemus; Roula Polk; Vale Muniz; Norberto Soria; Supa Avendano; Hortensia Oden; Manuel Acevedo; Kourtney Randolph; Diogenes Ashton; Margy Stark Instructions Additional Instructions / Restrictions: Advised to follow with PCP Martin, for prior authorization as patient is allergic to statin. Discharge Orders/Prescriptions Prescriptions: New aspirin 81 mg Tablet,Chewable 81 mg PO BREAKFAST 30 Days Qty: 30 3RF Rx Instructions: Discontinue if platelet count drops less than 50,000 or hemoglobin less than 8 g% Continued coenzyme Q10 100 mg capsule 100 mg PO DAILY cholecalciferol (vitamin D3) 2,000 unit capsule 2,000 unit PO DAILY multivitamin Tablet 1 tab PO DAILY losartan 100 mg tablet 100 mg PO DAILY glucosamine-chondroitin [Osteo Bi-Flex] 250-200 mg tablet 1 tab PO DAILY ascorbic acid (vitamin C) 500 mg capsule 2,000 mg PO DAILY carvedilol 12.5 mg tablet 12.5 mg PO BID Qty: 180 0RF magnesium oxide 400 mg (241.3 mg magnesium) tablet 400 mg PO DAILY doxazosin 8 mg tablet 8 mg PO QHS hydralazine 100 mg tablet 100 mg PO TID ketoconazole 2 % cream 1 applic topical BID Discontinued garlic 1,000 mg capsule 1,000 mg PO DAILY Referrals / Follow Up: Dallas Reed MD [Primary Care Provider] - Within 2 Weeks Disposition Disposition (needs filled in before D/C Order can be placed): Home, Self Care
--- NOTE | 2024-05-24 11:37 | PCM.DC.SUM ---
Providers Date of Admission: 05/23/24 Date of Discharge: 05/24/24 Primary Care Physician: Dr. Dallas Reed MD Consultations 05/23/24 23:06 Consult: Tele-Neurology Routine Consulting Provider: [facility] Reason for Consult: Acute Ischemic Stroke/TIA EMERGENT Consult: No Notified: Yes Date Notified: 05/24/24 Time Notified: 00:38 Method of Notification: Answering Service Nursing Unit Staff Notify [facility] of Tele-Neurology Consult: Yes Reason For Visit: TIA Diagnosis Discharge Diagnosis (1) TIA (transient ischemic attack): Status: Acute Code(s): G45.9 - Transient cerebral ischemic attack, unspecified Plan This 84-year-old gentleman was admitted with dizziness, off balance, gait instability and disequilibrium for about 48 hours prior to presentation to ED. No headache. 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 Calcified plaque noted at the origin of vertebral arteries with possible mild stenosis unchanged. Patient had a right carotid endarterectomy done by Dr. Perez in the past. 1. Possible TIA with imbalance dizziness/dysuria: Patient admitted in PCU. Chest x-ray no acute disease. MRI brain was done which shows no evidence of acute infarct. 2D echo shows EF 55%, LA mildly enlarged with bubble contrast study negative for R to L interatrial shunt. Fasting profile shows LDL 121, HDL 44 in normal range. TSH 3.3. A1c 4.8. Had full stroke workup done. PT and OT evaluated the patient and showed no need for further skilled therapy. Patient discharged on baby aspirin. Advised to follow with PCP for prior authorization of Vascepa as patient is allergic to statins. 2. Peripheral arterial disease: Has carotid disease chronic status post right CEA. AAA status postrepair. Advised to follow-up with vascular surgeon Dr. Haas. 3. Chronic HFpEF: Echo shows normal EF and left ventricular function. 4. CKD stage IIIb: Creatinine 1.26 estimated creatinine clearance 42 mL/min. 5. Chronic thrombocytopenia: Platelet count 90,000. Monitor CBC weekly. Discontinue aspirin if platelet count drops less than 50,000 or hemoglobin less than 8 g% 6. Other chronic comorbidities include hypertension, dyslipidemia, blood pressure is controlled. Discharge medication reconciliation done. Discharge follow-up instructions completed. Discharge process discussed with the patient and all questions were answered to patient's satisfaction. Follow with PCP in 1 to 2 weeks Total time spent, exact 35 minutes on discharge meds reconciliation, examination, coordination of care with nurses and ancillary staff, review of imaging and blood test and discussion with the patient on follow-up instructions. Laboratory Results 05/23/24 16:30: PT 14.0, INR 1.1, APTT 38.8 H, Sodium 141, Potassium 4.1, Chloride 108 H, Carbon Dioxide 26.0, Anion Gap 7, BUN 34 H, Creatinine 1.32 H, Estim Creat Clear Calc 40.30, Est GFR (MDRD) Af Amer 66, Est GFR (MDRD) Non-Af 55 L, BUN/Creatinine Ratio 25.8 H, Glucose 122 H, Calcium 9.8 05/23/24 16:50: Magnesium 2.4, Troponin I High Sens 34 05/24/24 05:53: WBC 5.4, RBC 3.76 L, Hgb 11.0 L, Hct 34.3 L, MCV 91.2, MCH 29.3, MCHC 32.1, RDW Std Deviation 51.5 H, RDW Coeff of Erma 15.6 H, Plt Count 90 L, MPV 11.3, Immature Gran % (Auto) 0.600, Neut % (Auto) 65.5, Lymph % (Auto) 20.9, Marin % (Auto) 10.8 H, Eos % (Auto) 1.5, Baso % (Auto) 0.7, Absolute Neuts (auto) 3.5, Absolute Lymphs (auto) 1.12, Nucleated RBC % 0, Differential Comment COMMENT, Sodium 141, Potassium 3.6, Chloride 110 H, Carbon Dioxide 25.0, Anion Gap 6, BUN 29 H, Creatinine 1.26, Estim Creat Clear Calc 42.22, Est GFR (MDRD) Af Amer 70, Est GFR (MDRD) Non-Af 58 L, BUN/Creatinine Ratio 23.0 H, Glucose 91, Hemoglobin A1c 4.8, Calcium 8.5, Total Bilirubin 0.70, AST 21, ALT 22, Alkaline Phosphatase 52, Total Protein 6.3 L, Albumin 2.8 L, Globulin 3.5, Albumin/Globulin Ratio 0.8 L, Triglycerides 76, Cholesterol 180, LDL Cholesterol 121, VLDL Cholesterol 15, HDL Cholesterol 44, TSH 3.380 Clinical Impression(s) from Imaging Studies Chest X-Ray 05/23/24 16:49 IMPRESSION: No acute disease Electronically Signed: Carl Gong MD at 17:16 EDT , Head/Neck CTA 05/23/24 17:12 IMPRESSION: 50-70% stenosis proximal right ICA. No change. Calcified plaque noted at the origin of vertebral arteries with possible mild stenosis unchanged. Echocardiogram 05/23/24 23:06 Interpretation Summary Normal LV size. Left ventricular systolic function is normal. The left ventricular ejection fraction is 55 %. The left atrium is mildly enlarged. Bubble contrast study negative for right to left interatrial shunt. Brain MRI 05/24/24 10:15 IMPRESSION: No evidence for acute infarct. Mild chronic involutional and white matter changes. Medications at Discharge Home Medications glucosamine-chondroitin 250 mg-200 mg tablet (Osteo Bi-Flex) 1 tab PO DAILY supplement 05/17/19 losartan 100 mg tablet 100 mg PO DAILY BP 05/17/19 cholecalciferol (vitamin D3) 50 mcg (2,000 unit) capsule 2,000 unit PO DAILY supplement 05/18/19 coenzyme Q10 100 mg capsule 100 mg PO DAILY supplement 05/18/19 multivitamin 1 tab PO DAILY supplement 05/18/19 ascorbic acid (vitamin C) 500 mg capsule 2,000 mg PO DAILY supplement 02/14/20 carvedilol 12.5 mg tablet 12.5 mg PO BID heart #180 tabs 11/12/21 doxazosin 8 mg tablet 8 mg PO QHS 05/23/24 hydralazine 100 mg tablet 100 mg PO TID 05/23/24 ketoconazole 2 % topical cream 1 applic topical BID RASH 05/23/24 magnesium oxide 400 mg (241.3 mg magnesium) tablet 400 mg PO DAILY 05/23/24 aspirin 81 mg chewable tablet 81 mg PO BREAKFAST 30 days #30 tabs 05/24/24 Physical Exam Narrative Seen and examined. Patient was admitted with dizziness, imbalance, and dyslipidemia. MRI brain negative for acute stroke. General: Alert, Oriented x3, Cooperative HEENT: Atraumatic, PERRLA, EOMI, Normocephalic Oral: No Gingival or Mucosal Lesions/ Ulcerations Neck: Supple, No JVD, Negative Carotid Bruits Chest wall/Lungs: Air entry diminished in bilateral lung bases. No crepitation/rhonchi Cardiovascular: Regular rate, Regular Rhythm, Normal S1, Normal S2, No M/G/R Abdomen: Bowel Sounds Present, Soft, Non Tender, Non-Distended : No dysuria. No renal angle tenderness. No suprapubic tenderness. Extremities: No edema, Capillary Refill Less than 3 Seconds Skin: No rashes, No breakdown Musculoskeletal: No Tenderness to Palpation of Joints or Extremities. ROM intact. Neurological: Cranial nerves II-XII grossly intact, DTR 2+/4. NIH stroke scale 0. No acute focal neurological deficit. Psych/Mental Status: Normal Affect, Appropriate. Weight / BMI Weight Weight: 153 lb 3.54 oz Body Mass Index (BMI) 23.3 ABG / Lab / Microbiology Data 05/24/24 05:53 05/24/24 05:53 Laboratory: Laboratory Results - last 24 hr 05/23/24 16:30: WBC 5.2, RBC 4.59 L, Hgb 13.2, Hct 41.6, MCV 90.6, MCH 28.8, MCHC 31.7 L, RDW Std Deviation 52.4 H, RDW Coeff of Erma 15.6 H, Plt Count 108 L, MPV 10.2, Immature Gran % (Auto) 0.400, Neut % (Auto) 71.5 H, Lymph % (Auto) 19.0, Marin % (Auto) 8.1, Eos % (Auto) 0.6, Baso % (Auto) 0.4, Absolute Neuts (auto) 3.7, Absolute Lymphs (auto) 0.99, Nucleated RBC % 0, PT 14.0, INR 1.1, APTT 38.8 H, Sodium 141, Potassium 4.1, Chloride 108 H, Carbon Dioxide 26.0, Anion Gap 7, BUN 34 H, Creatinine 1.32 H, Estim Creat Clear Calc 40.30, Est GFR (MDRD) Af Amer 66, Est GFR (MDRD) Non-Af 55 L, BUN/Creatinine Ratio 25.8 H, Glucose 122 H, Calcium 9.8 05/23/24 16:50: Magnesium 2.4, Troponin I High Sens 34 05/24/24 05:53: WBC 5.4, RBC 3.76 L, Hgb 11.0 L, Hct 34.3 L, MCV 91.2, MCH 29.3, MCHC 32.1, RDW Std Deviation 51.5 H, RDW Coeff of Erma 15.6 H, Plt Count 90 L, MPV 11.3, Immature Gran % (Auto) 0.600, Neut % (Auto) 65.5, Lymph % (Auto) 20.9, Marin % (Auto) 10.8 H, Eos % (Auto) 1.5, Baso % (Auto) 0.7, Absolute Neuts (auto) 3.5, Absolute Lymphs (auto) 1.12, Nucleated RBC % 0, Differential Comment COMMENT, Sodium 141, Potassium 3.6, Chloride 110 H, Carbon Dioxide 25.0, Anion Gap 6, BUN 29 H, Creatinine 1.26, Estim Creat Clear Calc 42.22, Est GFR (MDRD) Af Amer 70, Est GFR (MDRD) Non-Af 58 L, BUN/Creatinine Ratio 23.0 H, Glucose 91, Hemoglobin A1c 4.8, Calcium 8.5, Total Bilirubin 0.70, AST 21, ALT 22, Alkaline Phosphatase 52, Total Protein 6.3 L, Albumin 2.8 L, Globulin 3.5, Albumin/Globulin Ratio 0.8 L, Triglycerides 76, Cholesterol 180, LDL Cholesterol 121, VLDL Cholesterol 15, HDL Cholesterol 44, TSH 3.380 Radiography Diagnostic Testing: Radiology Impression Chest X-Ray 05/23/24 16:49 IMPRESSION: No acute disease Electronically Signed: Carl Gong MD at 17:16 EDT Reading Location ID and State: [employer] / [place] Tel , Service support , Head/Neck CTA 05/23/24 17:12 IMPRESSION: 50-70% stenosis proximal right ICA. No change. Calcified plaque noted at the origin of vertebral arteries with possible mild stenosis unchanged. Electronically Signed: Carl Gong MD at 19:04 EDT Reading Location ID and State: [facility] / [place] Tel , Service support , Echocardiogram 05/23/24 23:06 Interpretation Summary Normal LV size. Left ventricular systolic function is normal. The left ventricular ejection fraction is 55 %. The left atrium is mildly enlarged. Bubble contrast study negative for right to left interatrial shunt. Ordering Physician: Margy Stark Referring Physician: Dallas Reed Performed By: Kala Dc, KATHRYN, RVT Brain MRI 05/24/24 10:15 IMPRESSION: No evidence for acute infarct. Mild chronic involutional and white matter changes. Electronically Signed: Valerie Alexandra MD at 11:25 EDT , Meaningful Use Info Meaningful Use Meaningful Use Diagnoses (Choose all that apply): None applicable Ischemic Stroke Statin Dosing Therapy Reference: STATIN DOSE THERAPY REFERENCE: * Patients > 75 years receive moderate or high dose statin therapy. * Patients 75 years or YOUNGER should receive HIGH intensity statin dose unless contraindicated. You will be required to document reason for non-treatment if statin daily dose does not meet guidelines. HIGH DOSE STATIN THERAPY DAILY Atorvastatin > than or = to 40 mg Rosuvastatin > than or = to 20 mg Amlodipine + Atorvastatin > than or = to 2.5/40 mg Ezetimibe + Simvastatin 10/80 mg Simvastatin 80mg Discharge Plan Admission Admit Date/Time: 05/23/24 20:09 Primary Reason for Your Visit: tia Attending Provider: Brant Alcantara Primary Care Provider: Dallas Reed Consulting Providers: Alverto Cooley; Susan Isaac; Alia Santiago; Carine Rodríguez; Jaky Belle; John Mar; Nata Alvarez; Félix Lawrence; Haider Hendrix; Jesse Anaya; Luciana Guerra; Carlos Lemus; Roula Polk; Vale Muniz; Norberto Soria; Supa Avendano; Hortensia Oden; Manuel Acevedo; Kourtney Randolph; Diogenes Ashton; Margy Stark Instructions Additional Instructions / Restrictions: Advised to follow with PCP Martin, for prior authorization as patient is allergic to statin. Discharge Orders/Prescriptions Prescriptions: New aspirin 81 mg Tablet,Chewable 81 mg PO BREAKFAST 30 Days Qty: 30 3RF Rx Instructions: Discontinue if platelet count drops less than 50,000 or hemoglobin less than 8 g% Continued coenzyme Q10 100 mg capsule 100 mg PO DAILY cholecalciferol (vitamin D3) 2,000 unit capsule 2,000 unit PO DAILY multivitamin Tablet 1 tab PO DAILY losartan 100 mg tablet 100 mg PO DAILY glucosamine-chondroitin [Osteo Bi-Flex] 250-200 mg tablet 1 tab PO DAILY ascorbic acid (vitamin C) 500 mg capsule 2,000 mg PO DAILY carvedilol 12.5 mg tablet 12.5 mg PO BID Qty: 180 0RF magnesium oxide 400 mg (241.3 mg magnesium) tablet 400 mg PO DAILY doxazosin 8 mg tablet 8 mg PO QHS hydralazine 100 mg tablet 100 mg PO TID ketoconazole 2 % cream 1 applic topical BID Discontinued garlic 1,000 mg capsule 1,000 mg PO DAILY Referrals / Follow Up: Dallas Reed MD [Primary Care Provider] - Within 2 Weeks Dustin Haas MD [Med Staff - Active Staff] - Within 1 Month Disposition Disposition (needs filled in before D/C Order can be placed): Home, Self Care Charges/Coding Visit Charges Inpatient E&M: 43758 Disch Hosp >30min
[2024-05-24 11:55] VITALS: BP 140/74; PULSE 66; RESP 16; TEMP 36.5; O2SAT 99
[2024-05-24] MEDS: Enoxaparin 40 MG/0.4 ML Syringe SC (12:12)
[2024-05-24] MEDS: Aspirin 81 MG TAB.CHEW PO (12:18)
[2024-05-24] MEDS: 0.9% Saline Lock 10 ML Syringe IV (12:18)
--- NOTE | 2024-05-24 12:28 | CASEMGMT ---
SW completed a PHQ 9 with patient as patient may have had a TIA/Stroke. Patient scored a 1 which indicates minimal depression. Patient denies any need for resources. Lyssa Colon MSW [facility]AD[facility]
--- NOTE | 2024-05-24 12:37 | CON.PCM.NE_ITS ---
Assessment and Plan: Neuro Assessment/Plan CAROLINA SY is a 84 M being evaluated by Teleneurology for dizziness, positional described as room spinning sensation associated with dry heave, lasted for 24 hours,resolved now. MRI brain negative for stroke. CT angio showed stenosis in 50 -70% stenosis proximal right ICA,non contributory to current clinical presentation. Diagnosis: peripheral vertigo,Possibly BPPV Plan: Meclizine 25 mg TID for 5- days PRN, vestibular rehab as an outpatient. Continue with aspirin and statin. I personally attended this patient and spent a total time of 40 minutes evaluating this patient including clinical assessment, review of chart, medical history imaging, and determining appropriate treatment and workup. Roula Polk MD [facility] Teleneurology dept HPI Consult Data Date of Consult: 05/24/24 HPI Narrative HPI Narrative: CAROLINA SY, is a 84 M who presents with dizziness. He carries PMH of IBS, AAA s/p repair, Former tobacco use, Carotid disease (R ICA s/p R CEA), HFpEF, HTN, HLD, Chronic thrombocytopenia, CKD stage III . Initial ED evaluation NIH stroke scale 0 with no evidence of any focal deficits or ataxia. Patient notes that he was recently evaluated for the symptoms given ongoing and persistent by ENT however they noted concern that potentially it was because of his blood pressure but upon blood pressure check he noted that his pressure was high and not low. Workup in the ED included T98.2, heart rate 80, BP 187/114, respiratory rate 18, 99% on room air with most recent repeat vital sign heart rate 82, BP 174/79, respiratory rate 16, 95% on room air, CBC with WBC 5.2, hemoglobin 13.2, MCV 90.6, platelet 108 without marked shift, unremarkable coags aside PTT 38.8, BMP with chloride 108, BUN/creatinine 34/1.32, GFR 55, glucose 122, troponin 34, chest x-ray with no acute cardiopulmonary findings, CTA head and neck with 50 to 70% stenosis of the proximal right ICA with no change reportedly from previous per radiology note, CT of the head with no evidence of any acute intracranial findings, EKG with sinus rhythm with no acute evidence of ischemia. On my evaluation , patient's symptoms resolved. [facility] Medical History History of echocardiogram Easy bruising Excessive bleeding History of IBS Former smoker History of stress test Cardiology follow-up encounter History of irregular heartbeat Preop cardiovascular exam Irregular heart beat Stenosis of right internal carotid artery Abdominal aortic 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 Essential hypertension Lumbar disc disease 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 Hyperlipidemia Diverticulosis Pre-operative cardiovascular examination Anemia 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, NYHA class 2 RSV (respiratory syncytial virus pneumonia) Shortness of breath Cough productive of purulent sputum Home Medications ?Medication ?Instructions ?Recorded ?Last Taken ?Type glucosamine-chondroitin 250 mg-200 1 tab PO DAILY supplement 05/17/19 05/21/24 History mg tablet (Osteo Bi-Flex) losartan 100 mg tablet 100 mg PO DAILY BP 05/17/19 05/21/24 History cholecalciferol (vitamin D3) 50 2,000 unit PO DAILY supplement 05/18/19 05/23/24 History mcg (2,000 unit) capsule coenzyme Q10 100 mg capsule 100 mg PO DAILY supplement 05/18/19 05/21/24 History garlic 1,000 mg capsule 1,000 mg PO DAILY supplement 05/18/19 05/21/24 History multivitamin 1 tab PO DAILY supplement 05/18/19 05/21/24 History ascorbic acid (vitamin C) 500 mg 2,000 mg PO DAILY supplement 02/14/20 05/23/24 History capsule carvedilol 12.5 mg tablet 12.5 mg PO BID heart #180 tabs 11/12/21 05/23/24 Rx doxazosin 8 mg tablet 8 mg PO QHS 05/23/24 05/22/24 History hydralazine 100 mg tablet 100 mg PO TID 05/23/24 05/23/24 History ketoconazole 2 % topical cream 1 applic topical BID RASH 05/23/24 05/22/24 History magnesium oxide 400 mg (241.3 mg 400 mg PO DAILY 05/23/24 05/21/24 History magnesium) tablet Allergy/AdvReac Type Severity Reaction Status Date / Time lisinopril Allergy Intermediate Rash Verified 05/23/24 15:46 atorvastatin calcium (From Allergy Other Verified 05/23/24 15:46 Lipitor) clonidine Allergy Unknown Verified 05/23/24 15:46 rosuvastatin calcium (From Allergy Other Verified 05/23/24 15:46 Crestor) Jcvfaca-VFU-AbZ Reductase Allergy Other Verified 05/23/24 15:46 Inhibitor (Xquptnq-Iuh-Gao Reductase Inhibitor) Family History Father Lung cancer Liver cancer Mother Oral cancer Surgical History S/P AAA repair History of right-sided carotid endarterectomy Hx of cataract surgery Hx of appendectomy History of tonsillectomy History of back surgery History of colonoscopy History of blepharoplasty History of inguinal hernia repair History of umbilical hernia repair 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 Social History household members: spouse Smoking Status: Former smoker second hand exposure: No alcohol intake: never substance use type: does not use caffeine: Yes Type: coffee Number of servings: 2 Vital Signs Vital Signs Vital Signs: 05/23/24 15:47 05/23/24 17:09 05/23/24 17:14 Temperature 98.2 F Temperature Source Temporal Pulse Rate 80 Respiratory Rate 18 Respiratory Effort Respiratory Depth Respiratory Pattern Blood Pressure 187/114 H 219/107 H Blood Pressure Mean 138 134 Blood Pressure Source Blood Pressure Position Blood Pressure Location Pulse Ox 99 Oxygen Delivery Method Room Air Room Air 05/23/24 17:17 05/23/24 17:36 05/23/24 17:45 Temperature Temperature Source Pulse Rate 80 90 83 Respiratory Rate 13 18 16 Respiratory Effort Respiratory Depth Respiratory Pattern Blood Pressure 219/107 H Blood Pressure Mean 144 Blood Pressure Source Blood Pressure Position Blood Pressure Location Pulse Ox 99 97 96 Oxygen Delivery Method Room Air 05/23/24 18:00 05/23/24 18:00 05/23/24 18:15 Temperature Temperature Source Pulse Rate 82 86 83 Respiratory Rate 25 H 19 H 20 H Respiratory Effort Respiratory Depth Respiratory Pattern Blood Pressure 182/97 H 182/97 H Blood Pressure Mean 125 121 Blood Pressure Source Blood Pressure Position Blood Pressure Location Pulse Ox 98 96 97 Oxygen Delivery Method 05/23/24 18:30 05/23/24 18:39 05/23/24 18:44 Temperature Temperature Source Pulse Rate 81 94 86 Respiratory Rate 18 22 H 18 Respiratory Effort Respiratory Depth Respiratory Pattern Blood Pressure 194/121 H 189/108 H Blood Pressure Mean 142 135 Blood Pressure Source Blood Pressure Position Blood Pressure Location Pulse Ox 96 93 98 Oxygen Delivery Method Room Air 05/23/24 18:45 05/23/24 19:00 05/23/24 19:15 Temperature Temperature Source Pulse Rate 87 81 Respiratory Rate 20 H 19 H 17 Respiratory Effort Respiratory Depth Respiratory Pattern Blood Pressure 189/108 H 174/79 H Blood Pressure Mean 128 99 Blood Pressure Source Blood Pressure Position Blood Pressure Location Pulse Ox 96 95 97 Oxygen Delivery Method 05/23/24 19:27 05/23/24 19:31 05/23/24 19:45 Temperature Temperature Source Pulse Rate 82 83 Respiratory Rate 16 36 H 16 Respiratory Effort Respiratory Depth Respiratory Pattern Blood Pressure 174/79 H Blood Pressure Mean 110 Blood Pressure Source Blood Pressure Position Blood Pressure Location Pulse Ox 95 96 Oxygen Delivery Method Room Air 05/23/24 20:00 05/23/24 20:55 05/23/24 21:08 Temperature 99 F 98.1 F Temperature Source Oral Pulse Rate 84 94 81 Respiratory Rate 17 18 18 Respiratory Effort Respiratory Depth Respiratory Pattern Blood Pressure 172/102 H 172/101 H 153/78 H Blood Pressure Mean 120 124 103 Blood Pressure Source Blood Pressure Position Blood Pressure Location Pulse Ox 97 95 96 Oxygen Delivery Method Room Air Room Air 05/23/24 22:00 05/23/24 23:20 05/23/24 23:57 Temperature 98.5 F 98 F Temperature Source Oral Oral Pulse Rate 87 71 70 Respiratory Rate 17 16 16 Respiratory Effort Respiratory Depth Respiratory Pattern Blood Pressure 168/92 H 177/93 H 170/85 H Blood Pressure Mean 117 121 113 Blood Pressure Source Monitor Monitor Blood Pressure Position Semi-Fowlers Semi-Fowlers Blood Pressure Location Right Arm Right Arm Pulse Ox 95 97 97 Oxygen Delivery Method Room Air Room Air Room Air 05/24/24 00:15 05/24/24 01:32 05/24/24 03:57 Temperature 97.8 F Temperature Source Oral Pulse Rate 71 Respiratory Rate 16 Respiratory Effort Normal Non-Labored Respiratory Depth Normal Respiratory Pattern Normal Blood Pressure 168/93 H Blood Pressure Mean 118 Blood Pressure Source Monitor Blood Pressure Position Semi-Fowlers Blood Pressure Location Right Arm Pulse Ox 94 97 Oxygen Delivery Method Room Air Room Air Room Air 05/24/24 07:57 05/24/24 08:37 05/24/24 11:55 Temperature 97.6 F L 97.7 F L Temperature Source Oral Oral Pulse Rate 59 L 66 Respiratory Rate 16 16 Respiratory Effort Respiratory Depth Respiratory Pattern Blood Pressure 162/64 H 140/74 H Blood Pressure Mean 96 96 Blood Pressure Source Monitor Monitor Blood Pressure Position Semi-Fowlers Semi-Fowlers Blood Pressure Location Right Arm Right Arm Pulse Ox 95 97 99 Oxygen Delivery Method Room Air Room Air Room Air Weight Weight: 69.5 kg Body Mass Index (BMI) 23.3 EEG Results Procedure Details EEG Procedure Details: CAROLINA SY is a 84 year old M with a past medical history of , who presents for evaluation of Electroencephalogram on DATE at TIME NIHSS NIHSS Nursing Documentation NIHSS Nursing Documentation: NIHSS: Ischemic Stroke/TIA Start: 05/23/24 23:06 Text: For PCU Patients: NIH and Neuro Check every 4 Status: Active hours, PRN and with change in RN caregiver. Freq: [id number] Protocol: Activity Type Activity Date Activity User E-sign Co-sign Detail Recorded Client Recorded Date Recorded By Document 05/24/24 11:55 SS desktop 05/24/24 12:07 SS 05/24/24 11:55 NIH Stroke Scale [NIHSS] A score of 0 is normal or asymptomatic . Total possible score is 42. Inpatient: RN or Physician to activate a stroke alert for onset of new stroke symptoms or with NIHSS increase >/= 3 points. Following change in neurological status, NIHSS will be performed per physician order or more frequently PRN. -1a. Level of Consciousness Alert; keenly responsive -1b. LOC Questions Answers BOTH questions correctly. -1c. LOC Commands Performs both tasks correctly . -2. Best Gaze Normal -3. Visual No visual loss -4. Facial Palsy Normal symmetrical movements -5a. Left Arm No drift; arm holds 90 (or 45 ) degrees for full 10 seconds -5b. Right Arm No drift; arm holds 90 (or 45 ) degrees for full 10 seconds -6a. Left Leg No drift; leg holds 30-degree position for full 5 seconds -6b. Right Leg No drift; leg holds 30-degree position for full 5 seconds -7. Limb Ataxia Absent -8. Sensory Normal; no sensory loss -9. Best Language No aphasia; normal -10. Dysarthria Normal -11. Extinction and Inattention No abnormality -Total 0 Query Text:A score of 0 is normal or asymptomatic. Total possible score is 42 . ED: Notify Physician for NIHSS increase by > / = 3 points. Inpatient: RN or Physician to activate a stroke alert for NIHSS increase of > / = 3 points. Coma Scale [Assess] -Eye Opening Spontaneous -Motor Obeys Commands -Verbal Oriented [Total] -Coma Scale Total 15 Physical Exam Neuro Neuro Narrative: -? General: Laying comfortably in bed; in no acute distress. -? HENT: Normal oropharynx and mucosa. Normal external appearance of ears and nose. Exophthalmos. -? Neck: Supple, no pain or tenderness -? CV:? No peripheral edema. -? Pulmonary:? Normal respiratory effort. -? Ext: No cyanosis, edema, or deformity -? Skin: No rash. Normal palpation of skin.? -? Musculoskeletal: full range of motion; no joint tenderness. Normal digits and nails by inspection. No clubbing. -? NEURO: -? Mental Status: The patient was alert and oriented to time, place, and person. Normal recent/remote memory, concentration, and general fund of knowledge. -? Language: speech is fluent? Naming, repetition, fluency, and comprehension intact. -? Cranial Nerves: PERRL . EOMI, visual guy full, no facial asymmetry, facial sensation intact, hearing intact, tongue midline, no evidence of atrophy or fibrillations. As performed by the nurse. Sternocleidomastoid and trapezius were equally strong. Soft palate raises equally, no uvular deviations -? Motor: normal bulk, tone, and strength throughout. No pronator drift or satelliting. Upper and lower extremities equal bilaterally. l R L l R L -? Tone: is normal and bulk is normal -? Sensation- Intact to light touch bilaterally -? Coordination: No dysmetria on owfwms-xuxk-kqhlrc, finger follow finger or [id number]. -? Gait- Gait initiation was normal. Narrow base with good heel strike and stride length was observed during ambulation. Turns were in stride. Patient was able to walk normally in tandem. Romberg was normal. Lab / Micro Data 05/24/24 05:53 05/24/24 05:53 Labs: Laboratory Results - last 24 hr 05/23/24 16:30: WBC 5.2, RBC 4.59 L, Hgb 13.2, Hct 41.6, MCV 90.6, MCH 28.8, M CHC 31.7 L, RDW Std Deviation 52.4 H, RDW Coeff of Erma 15.6 H, Plt Count 108 L, MPV 10.2, Immature Gran % (Auto) 0.400, Neut % (Auto) 71.5 H, Lymph % (Auto) 19.0, [place] % (Auto) 8.1, Eos % (Auto) 0.6, Baso % (Auto) 0.4, Absolute Neuts (auto) 3.7, Absolute Lymphs (auto) 0.99, Nucleated RBC % 0, PT 14.0, INR 1.1, A PTT 38.8 H, Sodium 141, Potassium 4.1, Chloride 108 H, Carbon Dioxide 26.0, Anion Gap 7, BUN 34 H, Creatinine 1.32 H, Estim Creat Clear Calc 40.30, Est GFR (MDRD) Af Amer 66, Est GFR (MDRD) Non-Af 55 L, BUN/Creatinine Ratio 25.8 H, G lucose 122 H, Calcium 9.8 05/23/24 16:50: Magnesium 2.4, Troponin I High Sens 34 05/24/24 05:53: WBC 5.4, RBC 3.76 L, Hgb 11.0 L, Hct 34.3 L, MCV 91.2, MCH 29.3, MCHC 32.1, RDW Std Deviation 51.5 H, RDW Coeff of Erma 15.6 H, Plt Count 90 L, MPV 11.3, Immature Gran % (Auto) 0.600, Neut % (Auto) 65.5, Lymph % (Auto) 20.9, [place] % (Auto) 10.8 H, Eos % (Auto) 1.5, Baso % (Auto) 0.7, Absolute Neuts (auto) 3.5, Absolute Lymphs (auto) 1.12, Nucleated RBC % 0, Differential Comment COMMENT, Sodium 141, Potassium 3.6, Chloride 110 H, Carbon Dioxide 25.0, Anion Gap 6, BUN 29 H, Creatinine 1.26, Estim Creat Clear Calc 42.22, Est GFR (MDRD) Af Amer 70, Est GFR (MDRD) Non-Af 58 L, BUN/Creatinine Ratio 23.0 H, Glucose 91, Hemoglobin A1c 4.8, Calcium 8.5, Total Bilirubin 0.70, AST 21, ALT 22, Alkaline Phosphatase 52, Total Protein 6.3 L, Albumin 2.8 L, Globulin 3.5, A lbumin/Globulin Ratio 0.8 L, Triglycerides 76, Cholesterol 180, LDL Cholesterol 121, VLDL Cholesterol 15, HDL Cholesterol 44, TSH 3.380 Imaging Radiology Impression Chest X-Ray 05/23/24 16:49 IMPRESSION: No acute disease Electronically Signed: Carl Gong MD at 17:16 EDT Reading Location ID and State: [address] [place] [address] Tel , Service support , Head/Neck CTA 05/23/24 17:12 IMPRESSION: 50-70% stenosis proximal right ICA. No change. Calcified plaque noted at the origin of vertebral arteries with possible mild stenosis unchanged. Electronically Signed: Carl Gong MD at 19:04 EDT Reading Location ID and State: [facility] / [place] Tel , Service support , Echocardiogram 05/23/24 23:06 Interpretation Summary Normal LV size. Left ventricular systolic function is normal. The left ventricular ejection fraction is 55 %. The left atrium is mildly enlarged. Bubble contrast study negative for right to left interatrial shunt. Ordering Physician: Margy Stark Referring Physician: Dallas Reed Performed By: Kala Dc, KATHRYN, RVT Brain MRI 05/24/24 10:15 IMPRESSION: No evidence for acute infarct. Mild chronic involutional and white matter changes. Electronically Signed: Valerie Alexandra MD at 11:25 EDT Reading Location ID and State: [facility] / [place] Tel , Service support , Active Medications Active Medications Active Medications: Current Medications Generic Name Dose Route Start Last Admin Trade Name Freq PRN Reason Stop Dose Admin Acetaminophen 650 mg 05/23/24 23:06 Acetaminophen 325 Mg Tablet PO Q4H PRN PRN Fever, pain -06/29 Al Hydrox/Mg Hydrox/Simethicone 30 ml 05/23/24 23:06 Mag /Aluminum/Simeth Wch Udc 30 Ml Oral.Susp PO Q6H PRN PRN Gastric Burning Albuterol Sulfate 2.5 mg 05/23/24 23:06 Albuterol 2.5 Mg/3 Ml Vial.Neb. INHALATION Q2H PRN PRN Dyspnea, wheezing Aspirin 81 mg 05/24/24 08:00 05/24/24 12:18 Aspirin 81 Mg Tab.Chew PO 81 mg BREAKFAST FOREIGN Administration Enoxaparin Sodium 40 mg 05/24/24 10:00 05/24/24 12:12 Enoxaparin 40 Mg/0.4 Ml Syringe SC 40 mg DAILY FOREIGN Administration Guaifenesin 20 ml 05/23/24 23:06 Guaifenesin 10 Ml Udc (200mg/10ml) PO Q4H PRN PRN COUGH Hydralazine HCl 5 mg 05/23/24 23:06 Hydralazine 20 Mg/Ml Vial IV 05/24/24 23:06 Q30M PRN maintain BP parameters with HR <60 Sodium Chloride 250 mls @ 15 mls/hr 05/23/24 23:26 IV .[id number] PRN Additional IVPB Infusion Sodium Chloride 250 mls @ 15 mls/hr 05/23/24 23:26 IV .[id number] PRN Saline Flush Ketoconazole 1 applic 05/23/24 23:06 05/24/24 12:12 Ketoconazole Cream TOPICAL Not Given BID [facility] Protocol Labetalol HCl 10 - 20 mg 05/23/24 23:06 Labetalol (Prefilled) 20 Mg/4 Ml IV 05/24/24 23:06 Q10M PRN PRN maintain BP parameters with HR >/=60 Melatonin 3 mg 05/23/24 23:06 Melatonin 3 Mg Tablet PO QHS PRN PRN INSOMNIA Ondansetron HCl 4 mg 05/23/24 23:06 Ondansetron 4 Mg/2 Ml Vial IV Q8H PRN PRN NAUSEA/VOMITING Prochlorperazine Edisylate 5 mg 05/23/24 23:06 Prochlorperazine 10 Mg/2 Ml Vial IV Q4H PRN PRN Breakthrough Nausea/Vomiting Senna/Docusate Sodium 2 tablet 05/23/24 23:06 Senna/Docusate Sodium 1 Tablet PO BID PRN PRN Constipation Sodium Chloride 10 - 40 ml 05/23/24 23:26 05/24/24 12:18 0.9% Saline Lock 10 Ml Syringe IV 10 ml UD PRN Administration SALINE FLUSH
[2024-05-24 14:29] VITALS: BMI 23.3
--- NOTE | 2024-05-24 16:15 | CASEMGMT ---
Met with patient to complete IBRAHIM form. IBRAHIM form explained to patient who voiced understanding and signed form. Original form placed in pt?s chart and copy provided to patient. Deyanira Lugo, Discharge Planning Asst
[2024-05-24 17:25] VITALS: BP 153/91; PULSE 63; RESP 16; TEMP 36.6; O2SAT 99
== END 2024-05-24 16:44 | disposition home or self-care (01) ==
LOC: ED 20:12 → PCU 22:42
PROVIDERS: Admitting Provider Family Medicine; Emergency Provider Emergency Medicine; PCP Internal Medicine; Visit Provider Internal Medicine
DX: G45.9 Transient cerebral ischemic attack, unspecified (principal); I13.0 Hypertensive heart and chronic kidney disease with heart failure and stage 1 through stage 4 chronic kidney disease, or unspecified chronic kidney disease; I50.32 Chronic diastolic (congestive) heart failure; N18.32 Chronic kidney disease, stage 3b; I71.40 Abdominal aortic aneurysm, without rupture, unspecified; E78.5 Hyperlipidemia, unspecified; Z87.891 Personal history of nicotine dependence; Z79.899 Other long term (current) drug therapy; D69.6 Thrombocytopenia, unspecified
CPT/HCPCS: 36415; 70496; 70498; 70551; 71045; 80048; 80053; 80061; 83036; 83735; 84443; 84484; 85025; 85610; 85730; 93005; 93306; 94668; 94762; 96360; 96361; 96372; 97161; 97166; 99221; 99285; J7030; Q9967; A4216; G0378

== ENCOUNTER 2024-07-11 16:09 | Emergency (ER) | payer MEDICARE, OTHER, SELFPAY ==
[2024-07-11 16:09] VITALS: BP 159/72; PULSE 79; RESP 18; TEMP 36.6; O2SAT 98; BMI 24.1
--- NOTE | 2024-07-11 17:53 | CT_ITS ---
We are attempting to reach an attending provider to discuss findings. An addendum with communication details will be sent when the communication is complete. EXAM: CT ABDOMEN AND PELVIS WITH INTRAVENOUS CONTRAST CLINICAL INDICATION: llq abd pain, swelling TECHNIQUE: Helically acquired images were obtained of the abdomen and pelvis with intravenous contrast. This CT exam was performed using one or more of the following dose reduction techniques: automated exposure control, adjustment of the mA and/or kV according to patient size, and/or use of iterative reconstruction technique. RADIATION DOSE: CTDIvol = 11.36 mGy, DLP = 629.01 mGy-cmContrast: IV 100mL Isovue-300 COMPARISON: December 27, 2023, noted endoleak in the aneurysm sac around the double lumen components of the aortic stent grafts, reported to be stable from May 26, 2023. FINDINGS: LOWER THORAX: Calcifications or stents in left circumflex coronary artery, mild calcifications at the aortic valve leaflets, similar degree of borderline-mild cardiomegaly. Mild chronic-appearing increased interstitial changes in the lung bases similar to prior exam. No significant pericardial effusion. ABDOMEN: LIVER: This study is with portal venous phase of contrast as compared to prior CTA. Moderate calcifications of common and proximal superficial femoral arteries appear similar. GALLBLADDER AND BILE DUCTS: Unremarkable. No calcified gallstones. No gallbladder distention or wall edema. No intra- or extrahepatic biliary ductal dilation. PANCREAS: Larger cystic lesion along the inferior body of the pancreas, now roughly 1.8 cm x 1.4 cm x 1.3 cm, it was previously small bowel and only retrospectively seen on prior exam, previously 1 cm x 9 mm x 9 mm. SPLEEN: Increased splenomegaly, it is 17.1 cm AP by 9.8 cm transverse by 18.6 cm craniocaudal. It was 15.9 cm AP by 15.6 cm craniocaudal by 10.9 cm transverse. ADRENALS: Unremarkable. No nodules. KIDNEYS AND URETERS: See below. STOMACH AND BOWEL: Mildly thick-walled appearance of distal esophagus and GE junction and stomach similar to prior exam. Small duodenal diverticulum again noted. Mildly prominent fluid and gas in the small bowel. Moderate stool in much of the proximal half of the colon, mild gas and stool in the distal colon and rectum. Moderate-marked diverticulosis in the mid to distal colon and mild diverticulosis in the right colon. No evidence of significant acute diverticulitis. PELVIS: APPENDIX: Nonvisualized appendix. BLADDER: There appears to be large right Hutch type diverticulum urinary bladder, similar to prior exam. REPRODUCTIVE: Similar prostatomegaly, roughly 5.9 cm x 4.7 cm x 4.8 cm. ABDOMEN and PELVIS: INTRAPERITONEAL SPACE: Unremarkable. No ascites or other fluid collection. No free air. RETROPERITONEAL SPACE: Unremarkable. No retroperitoneal hematoma. BONES/JOINTS: Right hip prosthesis again noted. Mild degenerative spine changes similar to prior exam. No high-grade lumbar spine stenosis. No suspicious lytic or blastic abnormality. SOFT TISSUES: Herniation of the anterior wall of proximal sigmoid into left lower quadrant with gallium type hernia, the herniated partial segment contains gas, no obvious strangulation. VASCULATURE: Fairly zncj-fowis-emljtekjc stenosis at the proximal SMA, at least mild stenosis at the proximal celiac axis. Miun-dkaht-jafeybgfs bilateral renal artery stenosis at the origins. Similar prior exam. Kidneys enhance symmetrically. LYMPH NODES: Unremarkable. No enlarged lymph nodes. TUBES, LINES AND DEVICES: Similar but larger appearance of the endoleak with three affiliated MUNDO supplied by the endoleak. The endoleak contrast to the left of the double lumen stent grafts within the aortic aneurysm measures roughly 2.6 cm AP x 2 cm transverse by 3.8 cm craniocaudal, it was 2.4 cm x 3 cm x 2.8 cm craniocaudal on prior exam. The total aneurysm sac at the level of the endoleak measures 5.7 cm AP by 5.6 cm transverse for a length of 6.7 cm, it was 5.1 cm AP by 5.3 cm transverse for a length of 6.[address]/Abdomen/Pelvis W IV Cont ONLY IMPRESSION: 1. Mildly increased size of the mid infrarenal aortic aneurysm. Increased size of the contrast-filled endoleak component within the aneurysm. Compared to 6 months ago. 2. No retroperitoneal hemorrhage. 3. Increased prominent splenomegaly. Correlate with any known lymphoma or other lymphoproliferative disease. 4. Newly seen and larger 1.8 cm maximum diameter cystic lesion at the inferior margin of the body of the pancreas, retrospectively seen on prior exam and previously 1 cm. Increased size compared to 6 months ago. 5. Recommendation (considering incidentally noted cystic lesion less than 2.5 mm and non-stable in a patient 80 years of age or older):ACR White Paper guidelines (Rafael, et al. JACR 2017; 14(7):911-923) suggest a contrast-enhanced, pancreas-protocol abdominal CT or MR in 1 year. 6. Moderate stool in most of the colon. Moderate diverticulosis, especially distally, but no evidence of significant acute diverticulitis. 7. 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 No CT evidence of strangulation or bowel obstruction. Small hernia defect of estimated 2 cm transverse, similar to prior exam. Electronically Signed: Marisabel Quiñonez MD at 20:17 EDT ,
--- NOTE | 2024-07-11 17:53 | EKG12_ITS ---
Test Reason : ABDOMINAL PAIN Blood Pressure : / mmHG Vent. Rate : 085 BPM Atrial Rate : 085 BPM P-R Int : 162 ms QRS Dur : 092 ms QT Int : 400 ms P-R-T Axes : 051 032 -05 degrees QTc Int : 476 ms Normal sinus rhythm Left ventricular hypertrophy with repolarization abnormality ( Sokolow-Lindsay , Romhilt-Noguera ) Abnormal ECG Confirmed by ISAIAH LAWTON, AMADOU ([id number]), telegraph editor BENITA NUNN ([id number]) on 07/13/2024 9:08:10 AM Referred By: Confirmed By:AMADOU COLON MD
--- NOTE | 2024-07-11 18:09 | EDS_ITS ---
HPI HPI - GI History of Present Illness Chief Complaint: Abd Pain Informant: patient Narrative Narrative: Patient is an 84-year-old male with history of carotid artery stenosis, CKD 3, chronic diastolic heart failure, AAA with type II endoleak of aortic graft, hyperlipidemia, hypertension and multiple abdominal surgeries including open appendectomy as a child presenting with left lower quadrant swelling and pain. Patient states for about a week he has noticed a lump in his left lower quadrant. It is more pronounced when he stands up. He also states that when he takes a deep breath it hurts. He states the pain radiates up into his chest and back. The pain really started today. I told family about I do recommend he come to the emergency room as he did not want a wait till tomorrow to see his primary care doctor. Denies any chest pain at rest but states he does get a pain when he takes a deep breath however the pain is mostly in his left lower quadrant. States that he had a good bowel movement yesterday but none today. Has some increased pain with movement as well. Denies any injury to the area. Denies any difficulty breathing. Denies any urinary symptoms. No other complaints or concerns reported at this time [facility] Medical History Ataxia History of echocardiogram Easy bruising Excessive bleeding History of IBS Former smoker History of stress test Cardiology follow-up encounter History of irregular heartbeat Preop cardiovascular exam Irregular heart beat Stenosis of right internal carotid artery Abdominal aortic 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 Essential hypertension Lumbar disc disease 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 Hyperlipidemia Diverticulosis Pre-operative cardiovascular examination Anemia 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, NYHA class 2 RSV (respiratory syncytial virus pneumonia) Shortness of breath Cough productive of purulent sputum Home Medications ?Medication ?Instructions ?Recorded ?Last Taken ?Type losartan 100 mg tablet 100 mg PO DAILY BP 05/17/19 05/21/24 History cholecalciferol (vitamin D3) 50 2,000 unit PO DAILY supplement 05/18/19 05/23/24 History mcg (2,000 unit) capsule multivitamin 1 tab PO DAILY supplement 05/18/19 05/21/24 History ascorbic acid (vitamin C) 500 mg 2,000 mg PO DAILY supplement 02/14/20 05/23/24 History capsule carvedilol 12.5 mg tablet 12.5 mg PO BID heart #180 tabs 11/12/21 05/23/24 Rx doxazosin 8 mg tablet 8 mg PO QHS prostate 05/23/24 05/22/24 History hydralazine 100 mg tablet 100 mg PO TID blood pressure 05/23/24 05/23/24 History magnesium oxide 400 mg (241.3 mg 400 mg PO DAILY supplement 05/23/24 05/21/24 History magnesium) tablet aspirin 81 mg chewable tablet 81 mg PO BREAKFAST 30 days #30 tabs 05/24/24 Unknown Rx bempedoic acid 180 mg tablet 180 mg PO DAILY 07/11/24 Unknown History (Nexletol) ezetimibe 10 mg tablet 10 mg PO DAILY 07/11/24 Unknown History furosemide 20 mg tablet 20 mg PO DAILY 07/11/24 Unknown History polyethylene glycol 3350 17 17 g PO DAILY #238 grams 07/11/24 Unknown Rx gram/dose oral powder (Miralax) Allergy/AdvReac Type Severity Reaction Status Date / Time lisinopril Allergy Intermediate Rash Verified 07/11/24 16:12 atorvastatin calcium (From Allergy Other Verified 07/11/24 16:12 Lipitor) clonidine Allergy Unknown Verified 07/11/24 16:12 rosuvastatin calcium (From Allergy Other Verified 07/11/24 16:12 Crestor) Oxkcvik-CWP-WsE Reductase Allergy Other Verified 07/11/24 16:12 Inhibitor (Ntvxmxt-Wvy-Pqv Reductase Inhibitor) Family History Father Lung cancer Liver cancer Mother Oral cancer Surgical History S/P AAA repair History of right-sided carotid endarterectomy Hx of cataract surgery Hx of appendectomy History of tonsillectomy History of back surgery History of colonoscopy History of blepharoplasty History of inguinal hernia repair History of umbilical hernia repair 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 Social History household members: spouse Smoking Status: Former smoker second hand exposure: No alcohol intake: never substance use type: does not use caffeine: Yes Type: coffee Number of servings: 2 ROS ROS ED Constitutional Constitutional ED: Denies chills or fever(s) Cardiovascular Cardiovascular: Reports chest pain and other Details: On the left side with deep breaths Respiratory/Chest Respiratory/Chest: Denies cough or dyspnea Gastrointestinal Gastrointestinal: Reports abdominal pain; Denies constipation, diarrhea, nausea or vomiting Genitourinary Genitourinary ED: Denies dysuria or hematuria Musculoskeletal Musculoskeletal: Denies arthralgias, back pain or myalgias Integumentary Denies rash Neurologic Neurologic: Denies paresthesias or weakness Hematologic/Lymphatic Hematologic/Lymphatic: Denies easy bleeding or easy bruising EXAM Physical Exam Const Vital Signs: 07/11/24 16:09 07/11/24 20:09 07/11/24 22:03 Temperature 98 F 97.8 F Temperature Source Oral Pulse Rate 79 78 78 Respiratory Rate 18 18 17 Blood Pressure 159/72 H 145/78 H 143/78 H Blood Pressure Mean 101 100 99 Pulse Ox 98 94 97 Oxygen Delivery Method Room Air Room Air Positive well nourished and well developed General Appearance ED: well developed and NAD HEENT Reports moist mucous membranes Eyes PERRL Neck supple and no JVD Resp normal respiratory effort and clear to auscultation bilaterally Cardio regular rate and regular rhythm GI non-tender and non-distended GI Narrative: Mild chest palpation of the left lower quadrant I do not appreciate any hernia or mass. No palpable mass appreciated. Palpation: Negative for guarding Extremity full ROM General Extremety ED: Negative for edema General Extremity: Negative for edema Neuro Sensorium / Orientation: alert Motor Exam: Negative for general weakness Psych mental status grossly normal and thought process normal Skin no wounds Rashes: no rashes MDM MDM MDM Narrative Medical decision making narrative: Patient is evaluated for 1 week of worsening lump in his left lower quadrant that is now painful. Patient peers nontoxic in no acute distress. When he stands there is a mild mass/bulge noted in the left lower quadrant consistent with a hernia but I am not able to really appreciated on direct palpation. I do not appreciate any overlying skin changes consistent with strangulated hernia. Lab including CBC and BMP is largely normal. Patient has a chronic anemia which is stable. He does not have a leukocytosis. He has some CKD which is near his baseline. Patient is not having significant pain at this time and I deferred any pain medicine. CT of the abdomen pelvis is obtained which shows multiple abnormalities which were communicated to me by the radiologist. 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 In addition there is moderate stool most of the colon. Patient also has increase of the size of his mild infrarenal aortic aneurysm with increase in the side of the contrast-filled endoleak component within the aneurysm compared to 6 months ago. These findings are reviewed with surgery on- call, Dr. Fonseca. She instructs me best way to reduce this hernia and encourages the patient to follow-up with vascular for his hernia. In addition p jinny will follow-up outpatient with his PCP for the other CT findings including new pancreatic cyst as well as splenic enlargement concern for possible lymphoma. On repeat evaluation patient is resting comfortably. I am able to now palpate the area of the hernia and with constant pressure of the left lower quadrant on the lateral aspect reduce the hernia. Patient has improvement of his pain now on direct palpation. Is counseled to avoid bearing down or straining and to start MiraLAX to help with his bowel movements he does have a large stool burden. Will follow-up outpatient with general surgery for this. Patient verbalized agreement or stands plan. Discharged home in stable condition. Is given return precautions to the emergency room. Lab Data Attestation: I reviewed the patient's lab results. Labs: Laboratory Results - last 24 hr 07/11/24 18:05 WBC 6.5 RBC 3.95 L Hgb 11.8 L Hct 36.3 L MCV 91.9 MCH 29.9 MCHC 32.5 RDW Std Deviation 51.2 H RDW Coeff of Erma 15.0 H Plt Count 107 L MPV 10.7 Immature Gran % (Auto) 0.500 Neut % (Auto) 74.1 H Lymph % (Auto) 13.9 L Throckmorton % (Auto) 9.3 Eos % (Auto) 1.7 Baso % (Auto) 0.5 Absolute Neuts (auto) 4.8 Absolute Lymphs (auto) 0.90 Nucleated RBC % 0 Sodium 138 Potassium 4.1 Chloride 104 Carbon Dioxide 30.0 Anion Gap 4 L BUN 41 H Creatinine 1.63 H Estim Creat Clear Calc 32.64 Est GFR (MDRD) Af Amer 52 L Est GFR (MDRD) Non-Af 43 L BUN/Creatinine Ratio 25.2 H Glucose 118 H Calcium 9.6 Radiography Diagnostic Testing: Clinical Impression(s) from Imaging Studies Abdomen/Pelvis CT 07/11/24 17:53 IMPRESSION: 1. Mildly increased size of the mid infrarenal aortic aneurysm. Increased size of the contrast-filled endoleak component within the aneurysm. Compared to 6 months ago. 2. No retroperitoneal hemorrhage. 3. Increased prominent splenomegaly. Correlate with any known lymphoma or other lymphoproliferative disease. 4. Newly seen and larger 1.8 cm maximum diameter cystic lesion at the inferior margin of the body of the pancreas, retrospectively seen on prior exam and previously 1 cm. Increased size compared to 6 months ago. 5. Recommendation (considering incidentally noted cystic lesion less than 2.5 mm and non-stable in a patient 80 years of age or older):ACR White Paper guidelines (Rafael, et al. JACR 2017; 14(7):911-923) suggest a contrast-enhanced, pancreas-protocol abdominal CT or MR in 1 year. 6. Moderate stool in most of the colon. Moderate diverticulosis, especially distally, but no evidence of significant acute diverticulitis. 7. 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 No CT evidence of strangulation or bowel obstruction. Small hernia defect of estimated 2 cm transverse, similar to prior exam. Electronically Signed: Marisabel Quiñonez MD at 20:17 EDT Reading Location ID and State: [facility] / [place] Tel , Service support , ADDENDUM: 07/11/242033 IMPRESSION: 1. Mildly increased size of the mid infrarenal aortic aneurysm. Increased size of the contrast-filled endoleak component within the aneurysm. Compared to 6 months ago. 2. No retroperitoneal hemorrhage. 3. Increased prominent splenomegaly. Correlate with any known lymphoma or other lymphoproliferative disease. 4. Newly seen and larger 1.8 cm maximum diameter cystic lesion at the inferior margin of the body of the pancreas, retrospectively seen on prior exam and previously 1 cm. Increased size compared to 6 months ago. 5. Recommendation (considering incidentally noted cystic lesion less than 2.5 mm and non-stable in a patient 80 years of age or older):ACR White Paper guidelines (Rafael et al. JACR 2017; 14(7):911-923) suggest a contrast-enhanced, pancreas-protocol abdominal CT or MR in 1 year. 6. Moderate stool in most of the colon. Moderate diverticulosis, especially distally, but no evidence of significant acute diverticulitis. 7. 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 No CT evidence of strangulation or bowel obstruction. Small hernia defect of estimated 2 cm transverse, similar to prior exam. N.B. : The above Results were Read Back by Marisabel Quiñonez MD to Veena Nelson DO, and understanding confirmed on 07/11/2024 20:27:37 (ET). Electronically Signed: Marisabel Quiñonez MD at 20:17 EDT , Chest X-Ray 07/11/24 18:25 IMPRESSION: Stable chest. Old granulomatous disease and chronic interstitial changes. Electronically Signed: Marisabel Quiñonez MD at 18:53 EDT , Rhythm Strip Rhythm Strip: Sinus Rhythm Rate: 85 Ectopy: None EKG Initial EKG: Attestation: I personally reviewed and interpreted this EKG as follows: Interpretation: Sinus Rhythm Comments: Normal sinus rhythm rate of 85 bpm Normal axis Normal intervals Voltage criteria for LVH Normal ST segments Prior EKG tracings: available for review Prior: Unchanged Discharge Plan Triage Chief Complaint: Abd Pain ED Provider: Veena Nelson Dx/Rx/DC Orders Clinical Impression: Spigelian hernia, Type II endoleak of aortic graft, Constipation, Splenomegaly, Pancreas cyst Instructions: ED Hernia (Adult) Prescriptions: New polyethylene glycol 3350 [Miralax] 17 gram/dose powder 17 g PO DAILY Qty: 238 0RF No Action cholecalciferol (vitamin D3) 2,000 unit capsule 2,000 unit PO DAILY multivitamin Tablet 1 tab PO DAILY losartan 100 mg tablet 100 mg PO DAILY ascorbic acid (vitamin C) 500 mg capsule 2,000 mg PO DAILY carvedilol 12.5 mg tablet 12.5 mg PO BID Qty: 180 0RF magnesium oxide 400 mg (241.3 mg magnesium) tablet 400 mg PO DAILY doxazosin 8 mg tablet 8 mg PO QHS hydralazine 100 mg tablet 100 mg PO TID aspirin 81 mg Tablet,Chewable 81 mg PO BREAKFAST 30 Days Qty: 30 3RF Rx Instructions: Discontinue if platelet count drops less than 50,000 or hemoglobin less than 8 g% furosemide 20 mg tablet 20 mg PO DAILY ezetimibe 10 mg tablet 10 mg PO DAILY Nexletol 180 mg tablet 180 mg PO DAILY Primary Care Provider: Dallas Reed Referrals: Dustin Haas MD [Med Staff - Active Staff] - As soon as possible Lara Fonseca MD [Med Staff - Active Staff] - As soon as possible Dallas Reed MD [Primary Care Provider] - Activity Restrictions/Additional Instructions: Your CT showed multiple abnormalities today. You have a hernia in the area of your pain. Try to avoid bearing down or pushing with bowel movements. If it becomes painful again please return to the emergency room. You may take Tylenol as needed for pain. Please follow-up with her general surgeon, Dr. Fonseca for this. If the pain returns/worsens or you develop nausea/vomiting or not able to pass gas or have a bowel movement please immediately return to the emergency room. In addition you have an increase leakage of your aortic graft. Please follow-up with Dr. Haas, her vascular surgeon for this. Fairly of other abnormalities in your CT including enlargement of your spleen and cyst on your pancreas that needs further workup. Please follow-up with your primary care doctor for this. Print Language: Cameroonian Disposition Disposition: Home, Self Care Discharge Date/Time: 07/11/24 22:19
[2024-07-11 18:20] LABS: Absolute Neutrophil Count 4.8 X10^3/uL (2.0-7.7); Basophil# 0.03 X10^3/uL; Basophil% 0.5 % (0-1); Eosinophil# 0.11 X10^3/uL; Eosinophils% 1.7 % (0-5); Hematocrit 36.3 % (40-54); Hemoglobin 11.8 g/dL (13.0-16.5); Lymphocyte % 13.9 % (19-41); Mean Corp Hgb Conc 32.5 g/dL (32-36); Mean Corpuscular Hgb 29.9 pg (27.0-32.0); Mean Corpuscular Volume 91.9 fL (80-94); Mean Platelet Vol. 10.7 fl (6.2-12.0); Monocyte% 9.3 % (0-10); NRBC Flagged by Analyzer 0 % (0-5); Neutrophil # 4.81 X10^3/uL (2.7-7.7); Neutrophil % 74.1 % (47-70); Platelet Count 107 K/mm3 (150-450); RBC Distribution Width SD 51.2 fl (35.1-43.9); Red Blood Count 3.95 M/mm3 (4.6-6.2); White Blood Count 6.5 K/mm3 (4.4-11.0)
--- NOTE | 2024-07-11 18:25 | RAD_ITS ---
EXAM: XR CHEST, 2 VIEWS CLINICAL INDICATION: pleuritic chest pain TECHNIQUE: Frontal and lateral views of the chest. COMPARISON: May 23, 2024, April 01, 2023. FINDINGS: LUNGS AND PLEURAL SPACES: Similar minimal opacity at the left lateral lung base and slight blunting of the left lateral aspect angle, presumably due to scarring. Similar mildly coarse-appearing interstitial lung changes. No pneumothorax. No effusion. HEART: Similar upper limits of normal transverse cardiac diameter. MEDIASTINUM: There are stable calcified mediastinal and right hilar lymph nodes. BONES/JOINTS: Unremarkable. No acute fracture. SOFT TISSUES: Unremarkable. RAD/Chest PA and Lateral IMPRESSION: Stable chest. Old granulomatous disease and chronic interstitial changes. Electronically Signed: Marisabel Quiñonez MD at 18:53 EDT ,
[2024-07-11 18:38] LABS: Anion Gap 4 (5-15); BUN 41 mg/dL (7-18); BUN/Creat Ratio 25.2 RATIO (10-20); Calcium,Total 9.6 mg/dL (8.5-10.1); Chloride 104 mmol/L (98-107); Creatinine, Serum 1.63 mg/dL (0.70-1.30); EST Glomerular Filtration Rate 43 mL/min (>60); Est Glom Filt Rate - Afr Amer 52 mL/min (>60); Estimated Creatinine Clearance 32.64 ml/min; Glucose 118 mg/dL (74-106); Potassium 4.1 mmol/L (3.5-5.1); Sodium Level 138 mmol/L (136-145)
[2024-07-11 20:09] VITALS: BP 145/78; PULSE 78; RESP 18; O2SAT 94
[2024-07-11 22:03] VITALS: BP 143/78; PULSE 78; RESP 17; TEMP 36.6; O2SAT 97
== END 2024-07-11 22:19 | disposition home or self-care (01) ==
PROVIDERS: Emergency Provider Emergency Medicine; PCP Internal Medicine; Visit Provider Emergency Medicine
DX: K43.9 Ventral hernia without obstruction or gangrene (principal); I13.0 Hypertensive heart and chronic kidney disease with heart failure and stage 1 through stage 4 chronic kidney disease, or unspecified chronic kidney disease; I50.32 Chronic diastolic (congestive) heart failure; N18.30 Chronic kidney disease, stage 3 unspecified; T82.898A Other specified complication of vascular prosthetic devices, implants and grafts, initial encounter; X58.XXXA Exposure to other specified factors, initial encounter; K59.00 Constipation, unspecified; K86.2 Cyst of pancreas; R16.1 Splenomegaly, not elsewhere classified; Z79.899 Other long term (current) drug therapy; Z87.891 Personal history of nicotine dependence
CPT/HCPCS: 71046; 74177; 80048; 85025; 93005; 99283; Q9967; A4216

== ENCOUNTER 2024-08-31 06:02 | Day surgery (SDC) | payer MEDICARE, OTHER, SELFPAY ==
[2024-08-23 12:08] VITALS: BP 147/86; PULSE 97; RESP 18; TEMP 36.9; O2SAT 98; BMI 23.1
[2024-08-23] MEDS: Lactated Ringers 1,000 ML 15 ML IV (12:15)
--- NOTE | 2024-08-23 12:33 | PCM.HP.BLA ---
History and Physical Date of Admission: 08/23/24 Date of Service: 07/26/24 MR#: [id number] Acct: [id number] Name: CAROLINA SY Rep #: [id number] : 1940 Provider: Dr. Lara Fonseca MD Age/Sex: 84/M Location: [facility] Status: Signed Intake Vital Signs 07/11/2416:09 07/26/2409:19 Height 5 ft 8 in 5 ft 8 in Weight: 156 lb BMI 23.7 BP 111/66 Blood Pressure Location Rt brachial Position Sitting Respiration 18 Intake Visit Reasons: SPIGELIAN HERNIA Chief Complaint: spigelian hernia Foam Fabricator Required: No Is patient in pain?: No Allergies lisinopril Allergy (Intermediate, Verified 07/26/24 09:20) Rashatorvastatin calcium (From Lipitor) Allergy (Verified 07/26/24 09:20) Otherclonidine Allergy (Verified 07/26/24 09:20) Unknownrosuvastatin calcium (From Crestor) Allergy (Verified 07/26/24 09:20) BycroBdhzfen-FPQ-RnH Reductase Inhibitor (Fccboka-Qel-Ffj Reductase Inhibitor) Allergy (Verified 07/26/24 09:20) Other Medications ?Medication ?Instructions ?Recorded ?Confirmed ?Type losartan 100 mg tablet 100 mg PO DAILY BP 05/17/19 07/26/24 History cholecalciferol (vitamin D3) 50 2,000 unit PO DAILY supplement 05/18/19 07/26/24 History mcg (2,000 unit) capsule multivitamin 1 tab PO DAILY supplement 05/18/19 07/26/24 History ascorbic acid (vitamin C) 500 mg 2,000 mg PO DAILY supplement 02/14/20 07/26/24 History capsule carvedilol 12.5 mg tablet 12.5 mg PO BID heart #180 tabs 11/12/21 07/26/24 Rx doxazosin 8 mg tablet 8 mg PO QHS prostate 05/23/24 07/26/24 History hydralazine 100 mg tablet 100 mg PO TID blood pressure 05/23/24 07/26/24 History magnesium oxide 400 mg (241.3 mg 400 mg PO DAILY supplement 05/23/24 07/26/24 History magnesium) tablet aspirin 81 mg chewable tablet 81 mg PO BREAKFAST 30 days #30 tabs 05/24/24 07/26/24 Rx bempedoic acid 180 mg tablet 180 mg PO DAILY 07/11/24 07/26/24 History (Nexletol) ezetimibe 10 mg tablet 10 mg PO DAILY 07/11/24 07/26/24 History furosemide 20 mg tablet 20 mg PO DAILY 07/11/24 07/26/24 History polyethylene glycol 3350 17 17 g PO DAILY #238 grams 07/11/24 07/26/24 Rx gram/dose oral powder (Miralax) Have you fallen in the past year?: No PFSH Medical History Ataxia History of echocardiogram Easy bruising Excessive bleeding History of IBS Former smoker History of stress test Cardiology follow-up encounter History of irregular heartbeat Preop cardiovascular exam Irregular heart beat Stenosis of right internal carotid artery Abdominal aortic 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 Essential hypertension Lumbar disc disease 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 Hyperlipidemia Diverticulosis Pre-operative cardiovascular examination Anemia 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, NYHA class 2 RSV (respiratory syncytial virus pneumonia) Shortness of breath Cough productive of purulent sputum Surgical History S/P AAA repair History of right-sided carotid endarterectomy Hx of cataract surgery Hx of appendectomy History of tonsillectomy History of back surgery History of colonoscopy History of blepharoplasty History of inguinal hernia repair History of umbilical hernia repair 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 Family History Father Lung cancer Liver cancerMother Oral cancer Social History household members: spouse Smoking Status: Former smoker second hand exposure: No alcohol intake: never substance use type: does not use caffeine: Yes Type: coffee Number of servings: 2 HPI HPI HPI: 84-year-old male presents for follow-up from ER on 07/11/2024 patient was having left-sided abdominal pain CT abdomen pelvis showed left spigelian hernia. This was able to be reduced in the ER. Patient denies having any issues since the ER visit or prior to the ER visit. Patient had a CT abdomen pelvis in 2022 which again shows this left spigelian hernia containing fat. Patient has had a right inguinal hernia pair, umbilical hernia pair and AAA EVAR with endoleak type II in the past. ROS General General: Yes fatigue and weakness; No weight change, appetite, colon cancer or breast cancer HEENT HEENT: Yes eye surgery; No difficulty swallowing, eye injury, swollen glands or hoarseness Endo Endocrine: No thyroid disease, diabetes mellitus, thyroid cancer, Hair loss, heat intolerance or cold intolerance Skin Skin: Yes rash; No changing moles Musc Musculoskeletal: Yes arthritis; No back problems, rheumatoid arthritis, gout or joint pain Cardio Cardiovascular: Yes high blood pressure; No murmur, pacemaker, heart disease, atrial fibrillation, heart attack, heart stent, palpitations, shortness of breat with exertion or chest pain Psych Psychiatric: No depression, anxiety or hearing voices Resp Respiratory: No shortness of breath, No sleep apnea, No cough, No COPD, No asthma, No emphysema and No wheezing Gastro Gastrointestinal: No abdominal pain, No nausea or vomiting, No diarrhea, No constipation, No blood in stool, No acid reflux, No hemorrhoids, No ulcers, No gallbladder problem and No black,tarry stools Leo Hematologic: No blood thinners, No blood disorders, No bleeding, No anemia and No blood clots Neuro Neurologic: No numbness, No tingling and Yes weakness Exam Const General: cooperative, healthy appearing, comfortable and no acute distress [facility] Head: normocephalic and atraumatic Neck Neck: supple Resp Effort & Inspection: normal respiratory effort Cardio Rate: regular rate GI Inspection: non-distended Palpation: soft and nontender Other: Unable to feel an obvious hernia on exam however bedside ultrasound does identify the left spigelian hernia currently containing fat. Skin General: no rashes or lesions noted Neuro General: CN's II-XI intact bilaterally Extrem General: normal to inspection Psych Mental Status: mental status grossly normal Attitude: cooperative Assessment and Plan Assessment and Plan (1) Spigelian hernia: Status: Chronic Comment: Left Plan Did review patient's CT scan from ER as well as previous in 2022. Patient has had since spigelian hernia and all of them, contain some of the colon and the 1 in the ER which was able to be reduced. Did discuss with patient that spigelian hernias can have additional issues with incarceration and possible strangulation in the future as well. Patient wished to have this repaired. Will have patient continue his baby aspirin. Will request medical clearance per PCP. Plan to do an left spigelian hernia repair with mesh. Reviewed the procedure with the patient including the risks, including but not limited to infection, bleeding, injury to the small bowel, and recurrence. All questions were answered. Also, discussed risk of strangulated bowel. Cautioned the patient that if he has N/V, ABD distention, increased left lower quadrant pain or changes of the skin over the hernia he needs to go to the ER. Lara Fonseca M.D. Pager: [phone] [facility] [address] [place] [address], [address] [place] [address] Office: [phone] Coding Level of Care Code Off vis,est,level 3 Diagnoses Spigelian hernia K43.9 Clinical Quality Measures Falls Risk Screening/Assistive Devices Have you fallen in the past year?: No 07/26/24 1214 <Electronically signed by Lara Fonseca MD> Date Lara Fonseca MD
[2024-08-23 12:36] VITALS: BP 147/86; PULSE 97; RESP 18; TEMP 36.9; O2SAT 98
--- NOTE | 2024-08-23 12:36 | PRE.ANES_ITS ---
ASA Classification* ASA Classification ASA Classification: 3 Assessment & Plan Anesthesia* Anesthesia Assessment Anesthesia Assessment: Discussed sedation and/or anesthesia options, risks, benefits, and alternatives with patient/parents/legal guardian/POA. Questions invited. The patient/parents/legal guardian/POA seems to understand and agrees to proceed with anesthesia plan. Reviewed the physical assessment, medical history, allergy history and patient home medications list prior to surgery/procedure/anesthetic and documented any changes. Performed airway and anesthesia risk assessments. Anesthesia Type Anesthesia Type: MAC (GETA bkup food until 7am) Anesthesia Focused Assessment* Temperature: 98.4 F Pulse Rate: 97 Blood Pressure: 147/86 Respiratory Rate: 18 Pulse Ox: 98 Airway Assessment Mouth opens: >3 cm Mallampati Score: II Focused Labs Anesthesia Preop lab: CBC WBC 6.5 K/mm3 (4.4-11.0) 07/11/24 18:05 RBC 3.95 M/mm3 (4.6-6.2) L 07/11/24 18:05 Hgb 11.8 g/dL (13.0-16.5) L 07/11/24 18:05 Hct 36.3 % (40-54) L 07/11/24 18:05 Plt Count 107 K/mm3 (150-450) L 07/11/24 18:05 CHEMISTRY Potassium 4.1 mmol/L (3.5-5.1) 07/11/24 18:05 Sodium 138 mmol/L (136-145) 07/11/24 18:05 Magnesium 2.4 mg/dL (1.6-2.6) 05/23/24 16:50 Phosphorus 2.4 mg/dL (2.5-4.9) L 03/29/23 14:04 BUN 41 mg/dL (7-18) H 07/11/24 18:05 Creatinine 1.63 mg/dL (0.70-1.30) H 07/11/24 18:05 Glucose 118 mg/dL (74-106) H 07/11/24 18:05 TSH 3.380 uIU/mL (0.358-3.740) 05/24/24 05:53 COAG PT 14.0 SECONDS (11.7-14.9) 05/23/24 16:30 Pre-Assessment Diagnosis/Proposed Procedure Planned Operative Procedure(s): OPEN LEFT SPIGELIAN HERNIA WITH MESH Anesthesia History 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 When Was Last Pacemaker Check QUESTION #4 FULL TEXT: You/Your Family Experience fever (hyperthermia) with Anesthesia Last Oral Intake Last Oral intake: Last Oral Intake NPO since 06:45 08/23/24 12:08 Meds taken in AM with sips of Yes 08/23/24 12:08 water? 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 Female No 08/11/24 12:26 HX of Motion Sickness No 08/11/24 12:26 HX of N/V After Surgery No 08/11/24 12:26 Non-Smoker Yes 08/11/24 12:26 Duration of Surgery greater Yes 08/11/24 12:26 than 60 minutes Number of Risk Factors 2 08/11/24 12:26 PONV Score Moderate Risk 08/11/24 12:26 Height & Weight Height & Weight: Anesthesia: Height & Weight Height 5 ft 8 in 08/23/24 12:08 Weight: 69.2 kg 08/23/24 12:08 Body Mass Index (BMI) 23.1 08/23/24 12:08 Respiratory Assessment Respiratory Assessment - district commercial superintendent: Respiratory Tract Infection Hx - district commercial superintendent Hx Respiratory Tract Infection No 08/11/24 12:26 STOP Sleep Apnea STOP Sleep Apnea - district commercial superintendent: STOP Sleep Apnea - district commercial superintendent Hx Hypertension Yes: CONTROLLED WITH MEDS 08/11/24 12:26 Hx Sleep Apnea No 08/11/24 12:26 CPAP No 04/07/23 10:31 BIPAP No 10/11/16 14:05 Do you snore loudly (louder Yes 08/11/24 12:26 than talking or can be heard Do you often feel tired/ Yes 08/11/24 12:26 fatigued/ sleepy during daytime? Has anyone observed you stop No 08/11/24 12:26 breathing during sleep? STOP Results Positive 08/11/24 12:26 QUESTION #5 FULL TEXT : Do you snore loudly (louder than talking or can be heard through closed doors)? 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 Specify any problems Hx of Preganancy in last 3 N/A 08/11/24 12:26 Months Nurse Filling Out Transfusion DSCHRIBER 08/11/24 12:26 & Questions: Date: 08/11/24 08/11/24 12:26 Time: 12:29 08/11/24 12:26 Patient unable to answer at this time (ie. confused, unrespo /Reproduction History /Reproductive History - district commercial superintendent: /Reproductive Hx- district commercial superintendent Hx Now No 08/11/24 12:26 Gestational Age (in weeks): EDC: Hx Hx Para Hx Section SAB No 08/11/24 12:26 Active Medications Active Medications: Current Medications Generic Name Dose Route Start Last Admin Trade Name Freq PRN Reason Stop Dose Admin Lactated Ringer's 1,000 mls @ 15 mls/hr 08/23/24 12:15 12/04/24 12:15 IV 08/29/24 01:34 15 mls/hr .Q48H FOREIGN Administration Protocol [facility] Medical History Wears hearing aid Wears glasses History of steroid therapy Arthritis History of renal disease TIA (transient ischemic attack) Ataxia History of echocardiogram Easy bruising History of IBS Former smoker History of stress test Cardiology follow-up encounter History of irregular heartbeat Preop cardiovascular exam Stenosis of right internal carotid artery Abdominal aortic 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 Essential hypertension Lumbar disc disease 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 Hyperlipidemia Diverticulosis Pre-operative cardiovascular examination Anemia 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, NYHA class 2 RSV (respiratory syncytial virus pneumonia) Shortness of breath Cough productive of purulent sputum Home Medications ?Medication ?Instructions ?Recorded ?Last Taken ?Type losartan 100 mg tablet 100 mg PO DAILY BP 05/17/19 08/23/24 06:45 History cholecalciferol (vitamin D3) 50 2,000 unit PO DAILY supplement 05/18/19 05/23/24 History mcg (2,000 unit) capsule multivitamin 1 tab PO DAILY supplement 05/18/19 05/21/24 History ascorbic acid (vitamin C) 500 mg 2,000 mg PO DAILY supplement 02/14/20 05/23/24 History capsule carvedilol 12.5 mg tablet 12.5 mg PO BID heart #180 tabs 11/12/21 08/23/24 06:45 Rx doxazosin 8 mg tablet 8 mg PO QHS prostate 05/23/24 05/22/24 History hydralazine 100 mg tablet 100 mg PO TID blood pressure 05/23/24 08/23/24 06:45 History magnesium oxide 400 mg (241.3 mg 400 mg PO DAILY supplement 05/23/24 05/21/24 History magnesium) tablet aspirin 81 mg chewable tablet 81 mg PO BREAKFAST 30 days #30 tabs 05/24/24 08/16/24 Rx bempedoic acid 180 mg tablet 180 mg PO DAILY 07/11/24 Unknown History (Nexletol) ezetimibe 10 mg tablet 10 mg PO DAILY 07/11/24 Unknown History furosemide 20 mg tablet 20 mg PO DAILY 07/11/24 Unknown History Allergy/AdvReac Type Severity Reaction Status Date / Time lisinopril Allergy Intermediate Rash Verified 12/04/24 12:05 atorvastatin calcium (From Allergy Other Verified 08/23/24 12:05 Lipitor) clonidine Allergy Unknown Verified 08/23/24 12:05 rosuvastatin calcium (From Allergy Other Verified 08/23/24 12:05 Crestor) Fklrqwk-[id number]-AsQ Reductase Allergy Other Verified 08/23/24 12:05 Inhibitor (Mlzkpuo-Wuy-Wpb Reductase Inhibitor) Family History Father Lung cancer Liver cancer Mother Oral cancer Surgical History S/P AAA repair History of right-sided carotid endarterectomy Hx of cataract surgery Hx of appendectomy History of tonsillectomy History of back surgery History of colonoscopy History of blepharoplasty History of inguinal hernia repair History of umbilical hernia repair 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
[2024-08-31] VITALS (10 sets, daily range): BP systolic 133–175; BP diastolic 67–90; PULSE 66–97; RESP 16–18; TEMP 36.1–37.1; O2SAT 94–100; BMI 23.1
--- NOTE | 2024-08-31 06:38 | PRE.ANES_ITS ---
ASA Classification* ASA Classification ASA Classification: 3 Assessment & Plan Anesthesia* Anesthesia Assessment Anesthesia Assessment: Discussed sedation and/or anesthesia options, risks, benefits, and alternatives with patient/parents/legal guardian/POA. Questions invited. The patient/parents/legal guardian/POA seems to understand and agrees to proceed with anesthesia plan. Reviewed the physical assessment, medical history, allergy history and patient home medications list prior to surgery/procedure/anesthetic and documented any changes. Performed airway and anesthesia risk assessments. Anesthesia Type Anesthesia Type: General Anesthesia Focused Assessment* Temperature: 98.4 F Pulse Rate: 97 Blood Pressure: 147/86 Respiratory Rate: 18 Pulse Ox: 98 Airway Assessment Mouth opens: >3 cm Mallampati Score: II Focused Labs Anesthesia Preop lab: CBC WBC 6.5 K/mm3 (4.4-11.0) 07/11/24 18:05 RBC 3.95 M/mm3 (4.6-6.2) L 07/11/24 18:05 Hgb 11.8 g/dL (13.0-16.5) L 07/11/24 18:05 Hct 36.3 % (40-54) L 07/11/24 18:05 Plt Count 107 K/mm3 (150-450) L 07/11/24 18:05 CHEMISTRY Potassium 4.1 mmol/L (3.5-5.1) 07/11/24 18:05 Sodium 138 mmol/L (136-145) 07/11/24 18:05 Magnesium 2.4 mg/dL (1.6-2.6) 05/23/24 16:50 Phosphorus 2.4 mg/dL (2.5-4.9) L 03/29/23 14:04 BUN 41 mg/dL (7-18) H 07/11/24 18:05 Creatinine 1.63 mg/dL (0.70-1.30) H 07/11/24 18:05 Glucose 118 mg/dL (74-106) H 07/11/24 18:05 TSH 3.380 uIU/mL (0.358-3.740) 05/24/24 05:53 COAG PT 14.0 SECONDS (11.7-14.9) 05/23/24 16:30 Pre-Assessment Diagnosis/Proposed Procedure Planned Operative Procedure(s): OPEN LEFT SPIGELIAN HERNIA WITH MESH Anesthesia History 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 When Was Last Pacemaker Check QUESTION #4 FULL TEXT: You/Your Family Experience fever (hyperthermia) with Anesthesia Last Oral Intake Last Oral intake: Last Oral Intake NPO since 06:45 08/23/24 12:08 Meds taken in AM with sips of Yes 08/23/24 12:08 water? 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 Female No 08/11/24 12:26 HX of Motion Sickness No 08/11/24 12:26 HX of N/V After Surgery No 08/11/24 12:26 Non-Smoker Yes 08/11/24 12:26 Duration of Surgery greater Yes 08/11/24 12:26 than 60 minutes Number of Risk Factors 2 08/11/24 12:26 PONV Score Moderate Risk 08/11/24 12:26 Height & Weight Height & Weight: Anesthesia: Height & Weight Height 5 ft 8 in 08/23/24 12:08 Weight: 69.2 kg 08/23/24 12:08 Body Mass Index (BMI) 23.1 08/23/24 12:08 Respiratory Assessment Respiratory Assessment - hand silvering supervisor: Respiratory Tract Infection Hx - hand silvering supervisor Hx Respiratory Tract Infection No 08/11/24 12:26 STOP Sleep Apnea STOP Sleep Apnea - hand silvering supervisor: STOP Sleep Apnea - hand silvering supervisor Hx Hypertension Yes: CONTROLLED WITH MEDS 08/11/24 12:26 Hx Sleep Apnea No 08/11/24 12:26 CPAP No 04/07/23 10:31 BIPAP No 10/11/16 14:05 Do you snore loudly (louder Yes 08/11/24 12:26 than talking or can be heard Do you often feel tired/ Yes 08/11/24 12:26 fatigued/ sleepy during daytime? Has anyone observed you stop No 08/11/24 12:26 breathing during sleep? STOP Results Positive 08/11/24 12:26 QUESTION #5 FULL TEXT : Do you snore loudly (louder than talking or can be heard through closed doors)? 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 Specify any problems Hx of Preganancy in last 3 N/A 08/11/24 12:26 Months Nurse Filling Out Transfusion DSCHRIBER 08/11/24 12:26 & Questions: Date: 08/11/24 08/11/24 12:26 Time: 12:29 08/11/24 12:26 Patient unable to answer at this time (ie. confused, unrespo /Reproduction History /Reproductive History - hand silvering supervisor: /Reproductive Hx- hand silvering supervisor Hx Now No 08/11/24 12:26 Gestational Age (in weeks): EDC: Hx Hx Para Hx Section SAB No 08/11/24 12:26 Active Medications Active Medications: Current Medications Generic Name Dose Route Start Last Admin Trade Name Freq PRN Reason Stop Dose Admin Cefazolin Sodium 2 gm/ N/A 20 mls @ 400 mls/hr 08/31/24 07:30 IV 08/31/24 07:32 PREOP ONE Sodium Chloride 1,000 mls @ 15 mls/hr 08/31/24 06:20 IV 09/05/24 19:39 .Q48H [facility] Protocol PFSH Medical History Wears hearing aid Wears glasses History of steroid therapy Arthritis History of renal disease TIA (transient ischemic attack) Ataxia History of echocardiogram Easy bruising History of IBS Former smoker History of stress test Cardiology follow-up encounter History of irregular heartbeat Preop cardiovascular exam Stenosis of right internal carotid artery Abdominal aortic 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 Essential hypertension Lumbar disc disease 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 Hyperlipidemia Diverticulosis Pre-operative cardiovascular examination Anemia 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, NYHA class 2 RSV (respiratory syncytial virus pneumonia) Shortness of breath Cough productive of purulent sputum Home Medications ?Medication ?Instructions ?Recorded ?Last Taken ?Type losartan 100 mg tablet 100 mg PO DAILY BP 05/17/19 08/31/24 05:30 History cholecalciferol (vitamin D3) 50 2,000 unit PO DAILY supplement 05/18/19 05/23/24 History mcg (2,000 unit) capsule multivitamin 1 tab PO DAILY supplement 05/18/19 05/21/24 History ascorbic acid (vitamin C) 500 mg 2,000 mg PO DAILY supplement 02/14/20 05/23/24 History capsule carvedilol 12.5 mg tablet 12.5 mg PO BID heart #180 tabs 11/12/21 08/31/24 Rx doxazosin 8 mg tablet 8 mg PO QHS prostate 05/23/24 05/22/24 History hydralazine 100 mg tablet 100 mg PO TID blood pressure 05/23/24 08/31/24 History magnesium oxide 400 mg (241.3 mg 400 mg PO DAILY supplement 05/23/24 05/21/24 History magnesium) tablet aspirin 81 mg chewable tablet 81 mg PO BREAKFAST 30 days #30 tabs 05/24/24 08/16/24 Rx bempedoic acid 180 mg tablet 180 mg PO DAILY 07/11/24 Unknown History (Nexletol) ezetimibe 10 mg tablet 10 mg PO DAILY 07/11/24 Unknown History furosemide 20 mg tablet 20 mg PO DAILY 07/11/24 Unknown History Allergy/AdvReac Type Severity Reaction Status Date / Time lisinopril Allergy Intermediate Rash Verified 08/31/24 06:35 atorvastatin calcium (From Allergy Other Verified 08/31/24 06:35 Lipitor) clonidine Allergy Unknown Verified 08/31/24 06:35 rosuvastatin calcium (From Allergy Other Verified 08/31/24 06:35 Crestor) Unhgdon-UKS-FcY Reductase Allergy Other Verified 08/31/24 06:35 Inhibitor (Jcddlxy-Sjt-Rxo Reductase Inhibitor) Family History Father Lung cancer Liver cancer Mother Oral cancer Surgical History S/P AAA repair History of right-sided carotid endarterectomy Hx of cataract surgery Hx of appendectomy History of tonsillectomy History of back surgery History of colonoscopy History of blepharoplasty History of inguinal hernia repair History of umbilical hernia repair 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
[2024-08-31] MEDS: 0.9% Normal Saline (1000mL) 1,000 ML 15 ML IV (06:58)
[2024-08-31] MEDS: Cefazolin 2 GM in Syringe IV (07:26)
--- NOTE | 2024-08-31 08:25 | OP.PCM_ITS ---
Operative Report (Standard) Operative Information Date of Procedure: 08/31/24 Pre-Operative Diagnosis: Left spigelian hernia Post-Operative Diagnosis: Same Surgery/Procedure Performed: Open left spigelian hernia pair with mesh etcher photoengraving: Yes Architectural Representative: Magalys Oneal Tasks completed by cutting table operator first: Closing and Retracting Type of Anesthesia: General/Supplemental RN Documented Start/Stop Times: Operation Date: 08/31/24 07:30 Case Time Into Pre-Op 08/31/24 06:16 Out of Pre-Op 08/31/24 07:24 Anesthesia Start 08/31/24 07:26 Into Room 08/31/24 07:26 Procedure Start 08/31/24 07:39 Procedure End 08/31/24 08:35 Anesthesia End 08/31/24 08:40 Out of Room 08/31/24 08:40 Into Recovery 08/31/24 08:44 Out of Recovery 08/31/24 09:10 Into Phase II Recovery 08/31/24 09:12 Out of Phase II 08/31/24 16:19 Procedure Start Time: 07:39 Procedure Stop Time: 08:35 Select all DRAINS/GRAFTS/IMPLANTS that apply: Prosthetic device Prosthetic device details: Ventralex ST hernia patch 6.4 cm ref [id number] Lot [id number] Special Medications: Ancef 2 g IV x 1 Estimated Blood Loss: < 10 cc Specimen collected: No Description of surgery: Patient was brought into the room placed supine on the operating table. Correct patient, procedure, site, positioning, special, was verified prior to procedure. General anesthesia was induced. The abdomen was prepped draped in usual sterile fashion. A transverse incision with a 15 blade scalpel overlying the left spigelian hernia which was marked preoperatively by ultrasound. This was deepened with electrocautery. The external oblique was divided vertically to expose the spigelian hernia. The fascia around the hernia defect was cleared and the hernia defect measured 2 cm x [address] hernia patch 6.4 cm was selected. This was secured laterally at its tails with 0 Nurolon horizontal mattress suture. The hernia defect was closed with 2 [id number] 0 Nurolon. The wound was irrigated with saline. External oblique fascia was closed with a running 0 Nurolon suture. Hemostasis was assured. The incision was closed with subdermal sutures of 3-0 Vicryl interrupted. The skin was closed with interrupted 4-0 Monocryl sutures. Steri-Strips and OpSite were placed over the incision. Patient was extubated. Patient tolerated procedure well and was taken to the postanesthesia care unit in stable condition. Surgical Findings: Left spigelian hernia Complications Complications: No
--- NOTE | 2024-08-31 08:25 | EX.PCM.DISCH ---
Discharge Instructions Diet Discharge Diet: Light diet - advance as tolerated Activity Discharge Activity: May Not Drive (while taking narcotic pain medications.) May shower in (days): 1 Lifting Restrictions: no lifting >20 lbs x 2 wks, no strenuous exercise for 4 wks Dressing / Incision Call your doctor if your incision/area has: Continuous Slow Oozing, Sudden Increased Bleeding, Increased Pain/ Swelling, Increased Redness, Foul Smelling Discharge and Swelling at the incision site Call your doctor if you observe: Fever of 101 or Higher Remove Dressing in: 2 days Cleanse incision/area with: Soap & Water Additional Dressing/Incision Instructions:: Steri-Strips will fall off in 7 to 10 days, if they do not fall off okay to remove after 10 days. Follow Up Care Please Follow Up With: Lara Fonseca MD When: Call the office for a follow-up appointment 2 weeks; after 5 PM and on the weekends call [phone] with any concerns. Test Results: Test results from this visit will be discussed in further detail at your follow-up appointment, if applicable. Discharge Plan Admission Attending Provider: Lara Fonseca Primary Care Provider: Dallas Reed Instructions Print Language: Chinese Discharge Orders/Prescriptions Prescriptions: New tramadol 50 mg tablet 50 mg PO Q6H PRN (Reason: pain) 3 Days Qty: 5 0RF Continued cholecalciferol (vitamin D3) 2,000 unit capsule 2,000 unit PO DAILY multivitamin Tablet 1 tab PO DAILY losartan 100 mg tablet 100 mg PO DAILY ascorbic acid (vitamin C) 500 mg capsule 2,000 mg PO DAILY carvedilol 12.5 mg tablet 12.5 mg PO BID Qty: 180 0RF magnesium oxide 400 mg (241.3 mg magnesium) tablet 400 mg PO DAILY doxazosin 8 mg tablet 8 mg PO QHS hydralazine 100 mg tablet 100 mg PO TID furosemide 20 mg tablet 20 mg PO DAILY ezetimibe 10 mg tablet 10 mg PO DAILY Nexletol 180 mg tablet 180 mg PO DAILY Held aspirin 81 mg Tablet,Chewable 81 mg PO BREAKFAST 30 Days Qty: 30 3RF Hold Instructions: Resume on 09/01/24. Rx Instructions: Discontinue if platelet count drops less than 50,000 or hemoglobin less than 8 g% Referrals / Follow Up: Dallas Reed MD [Primary Care Provider] - Disposition Disposition (needs filled in before D/C Order can be placed): Home, Self Care
[2024-08-31] MEDS: Bupivacaine Mpf 0.5% 30 ML VIAL (08:26)
--- NOTE | 2024-08-31 08:44 | PCM.POST.ANE ---
Anesthesia: Postop Eval I Current Vital Signs Temperature: 98.8 F Pulse Rate: 73 Blood Pressure: 161/80 Respiratory Rate: 18 Pulse Ox: 96 Assessment Airway patent: Yes Spontaneous unlabored respirations: Yes nausea: No Vomiting: No Anesthesia Complication: No Fluid Hydration Crystalloid volume administer (ml): 1,000 Total IV fluid infused: 1,000 Progress Note Anesthesia document: Postop Eval 1 completed: Yes
--- NOTE | 2024-08-31 09:13 | POSTOPAN2_ITS ---
Anesthesia Postop Eval I Sum Postop Eval Completion status Anesthesia document: Postop Eval 1 completed: Yes Anesthesia Postop Eval I Summary Anesthesia Postop Eval I Summary: Anesthesia Postop Eval I: Assessment Summary Airway patent Yes 08/31/24 08:44 LEGAL [email or web address].CSIR Spontaneous unlabored Yes 08/31/24 08:44 LEGAL SECRETARY.CSIR respirations Mental status nausea No 08/31/24 08:44 LEGAL SECRETARY.CSIR Vomiting No 08/31/24 08:44 LEGAL SECRETARY.CSIR Anesthesia Postop Eval I: Fluid Summary Crystalloid volume administer 1,000 08/31/24 08:44 LEGAL SECRETARY.CSIR (ml) Colloids volume administered ( ml) Blood Product volume administered (ml) Total IV fluid infused 1,000 08/31/24 08:44 LEGAL SECRETARY.CSIR Anesthesia Postop Eval I: Summary Notes Anesthesia Complication No 08/31/24 08:44 LEGAL SECRETARY.CSIR Anesthesia Complication Comment: Post-operative progress note Anesthesia: Postop Eval II Evaluation Mental status: Awake Pain Level: 0 nausea: No Vomiting: No
--- NOTE | 2024-08-31 09:13 | PCM.POSTANE2 ---
Anesthesia Postop Eval I Sum Postop Eval Completion status Anesthesia document: Postop Eval 1 completed: Yes Anesthesia Postop Eval I Summary Anesthesia Postop Eval I Summary: Anesthesia Postop Eval I: Assessment Summary Airway patent Yes 08/31/24 08:44 [email or web address] Spontaneous unlabored Yes 08/31/24 08:44 [email or web address] respirations Mental status nausea No 08/31/24 08:44 [email or web address] Vomiting No 08/31/24 08:44 [email or web address] Anesthesia Postop Eval I: Fluid Summary Crystalloid volume administer 1,000 08/31/24 08:44 [email or web address] (ml) Colloids volume administered ( ml) Blood Product volume administered (ml) Total IV fluid infused 1,000 08/31/24 08:44 [email or web address] [email or web address] Anesthesia Postop Eval I: Summary Notes Anesthesia Complication No 08/31/24 08:44 [email or web address] Anesthesia Complication Comment: Post-operative progress note Anesthesia: Postop Eval II Evaluation Mental status: Awake Pain Level: 0 nausea: No Vomiting: No
[2024-08-31] MEDS: traMADol 50 MG Tablet PO (11:38)
== END 2024-08-31 16:23 | disposition home or self-care (01) ==
LOC: SDC 06:03 → AC 06:03
PROVIDERS: PCP Internal Medicine; Referring Provider Surgery; Visit Provider Surgery
PROC: (CPT 49591; principal; 2024-08-31 07:15)
DX: K43.9 Ventral hernia without obstruction or gangrene (principal); I13.0 Hypertensive heart and chronic kidney disease with heart failure and stage 1 through stage 4 chronic kidney disease, or unspecified chronic kidney disease; I50.32 Chronic diastolic (congestive) heart failure; N18.30 Chronic kidney disease, stage 3 unspecified; Z79.82 Long term (current) use of aspirin; Z79.899 Other long term (current) drug therapy; Z86.73 Personal history of transient ischemic attack (TIA), and cerebral infarction without residual deficits; Z87.891 Personal history of nicotine dependence
CPT/HCPCS: 49591; 00750; C1781; J2405

== ENCOUNTER 2024-11-28 17:51 | Emergency (ER) | payer MEDICARE, OTHER, SELFPAY ==
--- NOTE | 2024-11-28 17:52 | EKG12_ITS ---
Test Reason : AAA Blood Pressure : */* mmHG Vent. Rate : 87 BPM Atrial Rate : 87 BPM P-R Int : 158 ms QRS Dur : 88 ms QT Int : 388 ms P-R-T Axes : 57 33 -15 degrees QTcB Int : 466 ms Normal sinus rhythm T wave abnormality, consider inferolateral ischemia Prolonged QT Abnormal ECG Confirmed by NICO LAWTON, RICHARD ([id number]), school photograph editor BENITA NUNN ([id number]) on 12/04/2024 11:27:45 AM Referred By: ELGIN Confirmed By: RICHARD WALSH MD
[2024-11-28 17:53] VITALS: BP 130/67; PULSE 87; RESP 22; TEMP 36.8; O2SAT 95; BMI 23.0
--- NOTE | 2024-11-28 18:00 | CT_ITS ---
PROCEDURE: ABDOMEN/PELVIS W IV CONT ONLY REASON FOR EXAM: ABD PAIN W/ KNOWN AAA TECHNIQUE: Abdomen and pelvis CT with intravenous contrast. IV CONTRAST: COMPARISON: CT abdomen/pelvis dated 12/27/2023. FINDINGS: There are streaky changes at the lung bases. Calcified granulomas in the right lung base. There is no pleural or pericardial effusion. There is no free air within the abdomen or pelvis. There are scattered granulomas within the liver. There is tiny hypodense structures present within the liver, which may represent cysts, but incompletely characterized. The spleen has increased in size since prior examination and measures up to 17.9 cm in craniocaudal dimension (previously measured up to 16 cm on 12/27/2023). The adrenals are within normal limits. The pancreas is moderately atrophic. 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 This was present on prior examination the kidneys are without evidence of hydronephrosis or obstructive uropathy. Urinary bladder is distended. A large posterior right urinary bladder diverticulum is present, similar to prior examination. Extensive sigmoid diverticulosis is present. No definite CT evidence for acute diverticulitis. There is no bowel obstruction identified. There is thickening of the GE junction. Duodenal diverticulum is noted. Correlate clinically for ischial reflux disease. The patient has undergone repair of abdominal aortic aneurysm. The aneurysmal sac measures up to 6.1 (AP) by 5.8 (TV) cm. This previously measured up to 5.9 (AP) by 5.5 (TV) cm when measured by this seen observer. 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 The endoleak appears to be increased when compared to prior examination. 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 Status post right total hip arthroplasty. No evidence of fracture or acute osseous abnormalities identified. CT/Abdomen/Pelvis W IV Cont ONLY IMPRESSION: Interval increase in size of the abdominal aortic aneurysmal sac when compared to prior examination. Interval increase in contrast blush within the morongo aortic sac. 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 Recommend vascular surgery/IR consultation for repair of the endoleak. 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 If patient is complaining of upper abdom inal pain, duodenal ulcer can not be ruled out. Patient may benefit from direct visualization. Progressive splenomegaly etiology to be determined. Correlate clinically for l ymphoproliferative disease. Cystic mass within the body of the pancreas may suggest IPMN. Recommend GI con sultation. Colonic diverticulosis without CT evidence of acute diverticulitis. Thickening of the gastroesophageal junction. Correlate for reflux disease. Other findings as above. One or more dose reduction techniques were used (e.g., Automated exposure contr ol, adjustment of the mA and/or kV according to patient size, use of iterative reconstruction technique). Reading Location: [id number]
--- NOTE | 2024-11-28 18:10 | EX.ED.DYSGE1 ---
HPI History of Present Illness Chief Complaint: General Illness Detail of Chief Complaint: Left lower quadrant abdominal pain for 5 days. Onset/Context/Timing Current Severity: Mild Maximum Severity: Mild Narrative Narrative: 84-year-old male known history of AAA with prior stent about a year ago. Patient had a prior TIA. States that he had a long 1 on Wednesday had left lower quadrant abdominal pain which she has had for 5 days and was seen by [facility] physician's office yesterday. They did a CAT scan. CAT scan shows the AAA to be 6 cm. And his doctor's office going to get him in 1 to be seen in the emergency department. He denies any anterior abdominal pain except the left lower quadrant. He denies any vomiting or diarrhea. He denies any dysuria. Denies any fever or back pain. 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 Hyperlipidemia Diverticulosis Pre-operative cardiovascular examination Anemia 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, NYHA class 2 RSV (respiratory syncytial virus pneumonia) Shortness of breath Cough productive of purulent sputum Home Medications ?Medication ?Instructions ?Recorded ?Last Taken ?Type losartan 100 mg tablet 100 mg PO DAILY BP 05/17/19 08/31/24 05:30 History cholecalciferol (vitamin D3) 50 2,000 unit PO DAILY supplement 05/18/19 05/23/24 History mcg (2,000 unit) capsule multivitamin 1 tab PO DAILY supplement 05/18/19 05/21/24 History ascorbic acid (vitamin C) 500 mg 2,000 mg PO DAILY supplement 02/14/20 05/23/24 History capsule carvedilol 12.5 mg tablet 12.5 mg PO BID heart #180 tabs 11/12/21 08/31/24 Rx doxazosin 8 mg tablet 8 mg PO QHS prostate 05/23/24 05/22/24 History hydralazine 100 mg tablet 100 mg PO TID blood pressure 05/23/24 08/31/24 History magnesium oxide 400 mg (241.3 mg 400 mg PO DAILY supplement 05/23/24 05/21/24 History magnesium) tablet aspirin 81 mg chewable tablet 81 mg PO BREAKFAST 30 days #30 tabs 05/24/24 08/16/24 Rx Held on 08/31/24. Instructions: Resume on 09/01/24. bempedoic acid 180 mg tablet 180 mg PO DAILY 07/11/24 Unknown History (Nexletol) ezetimibe 10 mg tablet 10 mg PO DAILY 07/11/24 Unknown History furosemide 20 mg tablet 20 mg PO DAILY 07/11/24 Unknown History tramadol 50 mg tablet 50 mg PO Q6H PRN pain 3 days #5 08/31/24 Unknown Rx tabs Allergy/AdvReac Type Severity Reaction Status Date / Time lisinopril Allergy Intermediate Rash Verified 11/28/24 17:53 atorvastatin calcium (From Allergy Other Verified 11/28/24 17:53 Lipitor) clonidine Allergy Unknown Verified 11/28/24 17:53 rosuvastatin calcium (From Allergy Other Verified 11/28/24 17:53 Crestor) [id number] Reductase Allergy Other Verified 11/28/24 17:53 Inhibitor (Elmxjub-Ric-Ktf Reductase Inhibitor) Family History Father Lung cancer Liver cancer Mother Oral cancer Surgical History S/P spigelian hernia repair, follow-up exam S/P AAA repair History of right-sided carotid endarterectomy Hx of cataract surgery Hx of appendectomy History of tonsillectomy History of back surgery History of colonoscopy History of blepharoplasty History of inguinal hernia repair History of umbilical hernia repair 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 Denies fever. Denies vomiting or diarrhea. Denies dysuria. Constitutional Constitutional ED: Denies chills or fever(s) Eyes Eyes: Denies blurry vision ENT ENT ED: Denies ear pain Cardiovascular Cardiovascular: Denies chest pain Respiratory/Chest Respiratory/Chest: Denies cough or dyspnea Gastrointestinal Gastrointestinal: Reports abdominal pain; Denies constipation, diarrhea or vomiting Genitourinary Genitourinary ED: Denies dysuria or hematuria Musculoskeletal Musculoskeletal: Denies arthralgias or back pain Integumentary Denies abscess Neurologic Neurologic: Denies headache(s) Psychiatric Psychiatric: Denies anxiety Endocrine Endocrinology: Denies cold intolerance Hematologic/Lymphatic Hematologic/Lymphatic: Reports none Allergic/Immunologic Allergic/Immunologic ED: Denies mouth swelling, tongue swelling or urticaria EXAM Physical Exam Narrative Exam Narrative: 84-year-old male vital signs are stable afebrile. Initial blood pressure 130/67. He does not look septic toxic or any distress. He sitting upright in bed. Family members at bedside. H EENT exam pupils round react to light. Mytrex members. Neck nontender no JVD. Lungs clear to auscultation bilaterally. Heart regular rhythm rate about 87 no murmur. Chest wall ribs nontender. Abdomen soft, nondistended, normal bowel sounds without peritoneal signs. He has mild reproducible tenderness in the left lower quadrant only. There is no pulsatile mass. Right upper and right lower quadrants are unremarkable. He is equal and symmetrical femoral pulses. He has a well-healed surgical scar from the left lower abdominal hernia. There is no current hernias present. Moving all 4 extremities. Nontender no edema. Normal strength. He is awake and alert. No focal motor deficits. Back is nontender. Const Vital Signs: 11/28/24 17:53 11/28/24 18:15 11/28/24 18:47 Temperature 98.2 F Temperature Source Oral Pulse Rate 87 81 Respiratory Rate 22 H 81 H Respiratory Effort Normal Non-Labored Respiratory Pattern Normal Blood Pressure 130/67 H 136/72 H Blood Pressure Mean 88 93 Pulse Ox 95 94 Oxygen Delivery Method Room Air Room Air Positive well nourished and well developed; Negative for obese, cachectic, contractures or unkempt General Appearance ED: well developed and NAD; Negative for unkempt, cachectic, contractures, cyanotic, diaphoretic or pallor Nutritional Appearance: Negative for cachectic or obese HEENT Reports moist mucous membranes Negative for trauma or tenderness Eyes PERRL and EOMs intact bilaterally General Eye ED: Negative for pale conjunctiva or scleral icterus Neck no lymphadenopathy, supple and no JVD General: Negative for tenderness Chest Wall inspection of chest normal and palpation of chest normal Resp normal respiratory effort and clear to auscultation bilaterally Effort and Inspection: Negative for retractions Auscultation: Negative for rales, rhonchi, wheezes or diminished lung sounds Cardio regular rate, regular rhythm, S1 normal heart sound, S2 normal heart sound and no murmurs Palpation: Negative for palpable S3 or palpable S4 Rate: Negative for bradycardia, tachycardic or other Rhythm: Negative for abnormal rhythm GI normal to inspection, nondistended, normoactive bowel sounds, non-distended and no masses; Negative for non-tender GI Narrative: Tenderness to the left lower quadrant only. Inspection: Negative for abdominal distention Auscultation: normoactive bowel sounds Palpation: soft and tender; Negative for guarding, splenomegaly, mass or rebound tenderness present Back/Spine no CVA tenderness General Back: Negative for CVA tenderness Cervical Spine: Negative for cervical spine tenderness Thoracic Spine / Upper Back: Negative for thoracic spinal tenderness or paraspinal muscle tenderness Extremity normal to inspection General Extremety ED: Negative for edema or tenderness General Extremity: Negative for edema Neuro oriented x3 and CN's II-XII intact bilaterally Sensorium / Orientation: alert; Negative for orientation impaired, lethargic or stuporous Motor Exam: strength 5/5 throughout; Negative for general weakness Psych Appearance: Negative for unkempt Attitude: No agitated Mood & Affect: Negative for depressed, anxious or tearful Skin no rashes or lesions noted, no wounds and skin turgor normal General Skin Exam: elasticity normal; Negative for jaundice or pallor Lesions: No lesion noted Rashes: No rashes noted Trauma: Negative for abrasion Wounds: Negative for wounds noted MDM MDM MDM Narrative Medical decision making narrative: 84-year-old male known AAA left lower quadrant abdominal pain and outpatient CT done at the [facility] locally yesterday showed a AAA of 6 cm. Today's pain seems like left lower quadrant this may or may not be related to his AAA. Is previously been repaired with a stent. He did not need anything for pain or nausea. Screening labs and a repeat CT of the abdomen with IV contrast to be obtained. Currently he is very stable. Differential would include abdominal pain, diverticulitis, hernia which I do not think it is clinically, AAA or leak. Patient is a known AAA he had a prior endovascular repair that has a known endoleak that is slightly larger than it was before. There is no rupture. It is unknown at this time if his pain is from this or another cause. I spoke to [facility] 2 of their surgeons a general surgeon and a vascular surgeon discussed the case are reviewing his CTs and the patient will be sent there by helicopter to determine if this needs to be emergently repaired or if it can be delayed for further evaluation. Patient is currently very stable. He was given morphine and Zofran for pain. Patient and family are aware. History & Record Review Discussion w/independent historian: Patient Additional record(s) reviewed:: Prior inpatient record, Prior outpatient record, Prior ED visit and Prior labs Lab Data Attestation: I reviewed the patient's lab results. Lab results narrative: CBC shows a white count 5.1. H&H 12.4 and 38.5. Platelets 93,000. Electrolytes show gap of 13. BUN of 39 creatinine 1.43. Glucose 140. Liver enzymes normal. Lipase 38. UA negative. Labs: Laboratory Results - last 24 hr 11/28/24 11/28/24 17:55 18:30 WBC 5.1 RBC 4.15 L Hgb 12.4 L Hct 38.5 L MCV 92.8 MCH 29.9 MCHC 32.2 RDW Std Deviation 51.1 H RDW Coeff of Erma 14.9 H Plt Count 93 L MPV 10.4 Immature Gran % (Auto) 0.400 Neut % (Auto) 71.3 H Lymph % (Auto) 17.0 L Collier % (Auto) 9.1 Eos % (Auto) 1.6 Baso % (Auto) 0.6 Absolute Neuts (auto) 3.6 Absolute Lymphs (auto) 0.86 Nucleated RBC % 0 Differential Comment SEE COMMENT Platelet Estimate MOD DEC RBC Morphology N CHROM Anisocytosis RARE Macrocytosis RARE Sodium 137 Potassium 4.0 Chloride 99 Carbon Dioxide 24.5 Anion Gap 13 BUN 39 H Creatinine 1.43 H Estim Creat Clear Calc 37.20 L Est GFR (MDRD) Non-Af 48 L BUN/Creatinine Ratio 26.9 H Glucose 140 H Calcium 9.4 Total Bilirubin 0.47 AST 33 ALT 24 Alkaline Phosphatase 66 Total Protein 7.2 Albumin 4.0 Globulin 3.2 Albumin/Globulin Ratio 1.3 Lipase 38 Urine Color Yellow Urine Clarity Sl. Cloudy Urine pH 6.5 Ur Specific [place] 1.010 Urine Protein 15 H Urine Glucose (UA) Normal Urine Ketones Negative Urine Occult Blood Negative Urine Nitrite Negative Urine Bilirubin Negative Urine Urobilinogen Normal Ur Leukocyte Esterase Negative Urine RBC 0-5 SEEN Urine WBC 0-5 SEEN Ur Squamous Epith Cells 0-5 SEEN Urine Bacteria 0 SEEN Urine Mucus 0 SEEN Blood Type O NEGATIVE Antibody Screen NEGATIVE Radiography Diagnostic Testing: Clinical Impression(s) from Imaging Studies Abdomen/Pelvis CT 11/28/24 18:00 IMPRESSION: Interval increase in size of the abdominal aortic aneurysmal sac when compared to prior examination. Interval increase in contrast blush within the sokaogon aortic sac. 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 Recommend vascular surgery/IR consultation for repair of the endoleak. 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 If patient is complaining of upper abdominal pain, duodenal ulcer can not be ruled out. Patient may benefit from direct visualization. Progressive splenomegaly etiology to be determined. Correlate clinically for lymphoproliferative disease. Cystic mass within the body of the pancreas may suggest IPMN. Recommend GI consultation. Colonic diverticulosis without CT evidence of acute diverticulitis. Thickening of the gastroesophageal junction. Correlate for reflux disease. Other findings as above. One or more dose reduction techniques were used (e.g., Automated exposure control, adjustment of the mA and/or kV according to patient size, use of iterative reconstruction technique). Reading Location: [facility] Rhythm Strip Rhythm Strip: Sinus Rhythm Rate: 87 Ectopy: None EKG Initial EKG: Attestation: I personally reviewed and interpreted this EKG as follows: Interpretation: Sinus Rhythm and No Acute Injury Pattern Comments: Normal sinus rhythm rate 87 no acute signs of OK or ischemia. Discharge Plan Triage Chief Complaint: General Illness ED Provider: Nate Gray Dx/Rx/DC Orders Clinical Impression: Abdominal pain, AAA (abdominal aortic aneurysm), History of abdominal aortic aneurysm (AAA) repair Prescriptions: No Action cholecalciferol (vitamin D3) 2,000 unit capsule 2,000 unit PO DAILY multivitamin Tablet 1 tab PO DAILY losartan 100 mg tablet 100 mg PO DAILY ascorbic acid (vitamin C) 500 mg capsule 2,000 mg PO DAILY carvedilol 12.5 mg tablet 12.5 mg PO BID Qty: 180 0RF magnesium oxide 400 mg (241.3 mg magnesium) tablet 400 mg PO DAILY doxazosin 8 mg tablet 8 mg PO QHS hydralazine 100 mg tablet 100 mg PO TID aspirin 81 mg Tablet,Chewable 81 mg PO BREAKFAST 30 Days Qty: 30 3RF Rx Instructions: Discontinue if platelet count drops less than 50,000 or hemoglobin less than 8 g% furosemide 20 mg tablet 20 mg PO DAILY ezetimibe 10 mg tablet 10 mg PO DAILY Nexletol 180 mg tablet 180 mg PO DAILY tramadol 50 mg tablet 50 mg PO Q6H PRN (Reason: pain) 3 Days Qty: 5 0RF Primary Care Provider: Dallas Reed Referrals: Dallas Reed MD [Primary Care Provider] - Print Language: Georgian Disposition Disposition: Acute Care Hospital
[2024-11-28 18:13] LABS: Absolute Lymphocyte Count 0.86 X10^3/uL (0.83-4.51); Absolute Neutrophil Count 3.6 X10^3/uL (2.0-7.7); Basophil# 0.03 X10^3/uL; Basophil% 0.6 % (0-1); Eosinophil# 0.08 X10^3/uL; Eosinophils% 1.6 % (0-5); Hematocrit 38.5 % (40-54); Hemoglobin 12.4 g/dL (13.0-16.5); Lymphocyte # 0.86 X10^3/ul (0.83-4.51); Mean Corp Hgb Conc 32.2 g/dL (32-36); Mean Corpuscular Hgb 29.9 pg (27.0-32.0); Mean Corpuscular Volume 92.8 fL (80-94); Mean Platelet Vol. 10.4 fl (6.2-12.0); Monocyte# 0.46 X10^3/uL; Monocyte% 9.1 % (0-10); NRBC Flagged by Analyzer 0 % (0-5); Neutrophil # 3.61 X10^3/uL (2.7-7.7); Neutrophil % 71.3 % (47-70); POSITIVE COUNT YES; Platelet Count 93 K/mm3 (150-450); RBC Distribution Width CV 14.9 % (11.6-14.6); RBC Distribution Width SD 51.1 fl (35.1-43.9); Red Blood Count 4.15 M/mm3 (4.6-6.2); White Blood Count 5.1 K/mm3 (4.4-11.0)
[2024-11-28 18:23] LABS: Differential Indicated SCAN CRITERIA MET
[2024-11-28 18:40] LABS: Anisocytosis RARE; Macrocytosis RARE; Platelet Estimate MOD DEC (ADEQ); Red Cell Morphology N CHROM NORMAL (NORM C&C)
[2024-11-28 18:47] VITALS: BP 136/72; PULSE 81; RESP 81; O2SAT 94
[2024-11-28 18:47] LABS: Bacteria 0 SEEN /hpf (None Seen); Mucous, Urine 0 SEEN /hpf (<or=2+)
[2024-11-28 18:51] LABS: Color, Urine Yellow (Yellow); Glucose, Dipstick Normal (Normal); Ketone-Dipstick Negative (Negative); Leukocyte Esterase-Dipstick Negative /ul (Negative); Nitrite-Dipstick Negative (Negative); Occult Blood-Urine Negative /ul (Negative); Protein-Dipstick 15 mg/dl (Negative); Urine Bilirubin Dipstick Negative (Negative); Urine Clarity Sl. Cloudy (Clear); Urine Urobilinogen Normal (Normal); Urine pH 6.5 (5.0 - 8.0)
[2024-11-28] MEDS: Ondansetron 4 MG/2 ML Vial IV (18:58)
[2024-11-28] MEDS: Morphine 4 MG/ML Syringe IV (18:58)
[2024-11-28 19:07] LABS: Red Blood Cells-Urine 0-5 SEEN /hpf (0-5); Squamous Epithelial Cells - UA 0-5 SEEN /hpf (0-5); White Blood Cells 0-5 SEEN /hpf (0-5)
[2024-11-28 19:14] LABS: ALB/GLOB Ratio 1.3 RATIO (0.9-2.4); AST(SGOT) 33 U/L (<=37); Alanine Aminotransfer ALT/SGPT 24 U/L (<=46); Alkaline Phosphatase 66 U/L (40-129); Anion Gap 13 (5-15); BUN 39 mg/dL (4-19); BUN/Creat Ratio 26.9 RATIO (10-20); Calcium,Total 9.4 mg/dL (7.6-11.0); Carbon Dioxide 24.5 mmol/L (21.0-32.0); Chloride 99 mmol/L (98-108); Creatinine, Serum 1.43 mg/dL (0.70-1.20); EST Glomerular Filtration Rate 48 (>60); Globulin 3.2 g/dL (2.2-4.2); Glucose 140 mg/dL (70-99); Lipase 38 U/L (13-75); Protein, Total 7.2 g/dL (5.9-8.4); Sodium Level 137 mmol/L (133-145); Total Bilirubin 0.47 mg/dL (0.00-1.30)
[2024-11-28 19:31] VITALS: BP 140/96; PULSE 81; RESP 18; TEMP 36.8; O2SAT 93
[2024-11-28 20:00] VITALS: BP 143/79; PULSE 76; RESP 18; O2SAT 93
== END 2024-11-28 20:15 | disposition short-term general hospital (02) ==
PROVIDERS: Emergency Provider Emergency Medicine; PCP Internal Medicine; Visit Provider Emergency Medicine
DX: I71.40 Abdominal aortic aneurysm, without rupture, unspecified (principal); I11.0 Hypertensive heart disease with heart failure; I50.32 Chronic diastolic (congestive) heart failure; Z79.82 Long term (current) use of aspirin; Z79.899 Other long term (current) drug therapy; Z87.891 Personal history of nicotine dependence
CPT/HCPCS: 74177; 80053; 81001; 83690; 85025; 86850; 86900; 86901; 93005; 96374; 96375; 99284; Q9967; A4216; J2405

== ENCOUNTER 2025-01-12 10:29 | Emergency (ER) | payer MEDICARE, OTHER, SELFPAY ==
[2025-01-12 10:30] VITALS: BP 135/52; PULSE 68; RESP 18; TEMP 36.6; O2SAT 99; BMI 22.4
--- NOTE | 2025-01-12 10:39 | CT_ITS ---
PROCEDURE: ABDOMEN/PELVIS W IV CONT ONLY 01/12/2025 REASON FOR EXAM: LEFT LOWER QUADRANT ABDOMINAL PAIN WITH GUARDING TECHNIQUE: Abdomen and pelvis CT with intravenous contrast. Coronal and Sagittal reconstruction series were provided. PATIENT PREPARATION: Per protocol ORAL CONTRAST TYPE: None. CONTRAST: Isovue-300 VOLUME: 100 mL One or more dose reduction techniques were used (e.g., Automated exposure control, adjustment of the mA and/or kV according to patient size, use of iterative reconstruction technique. RADIATION DOSE SUMMARY: CTDlvol: 11.5 mGy DLP: 503.73 mGycm COMPARISON: Comparison is made with prior study dated November 28, 2024. FINDINGS: Lung bases: Stable mild increased markings at the lung bases suggestive of scarring. Calcific granuloma in the peripheral aspect of the right lower lobe. Coronary artery calcification. Liver: Diffuse fatty infiltration. Gallbladder: Unremarkable. Spleen: [id number] degree of splenomegaly. This is unchanged. Pancreas: Diffuse fatty atrophy. Adrenals: Unremarkable. Kidneys: Mild degree of bilateral renal atrophy. Bladder: Distended urinary bladder. Stable 4.3 cm bladder diverticulum in the posterior right side of the bladder. There is evidence of prior TURP. Bowel: Sigmoid diverticulosis. Mild degree of increased markings in the surrounding peritoneal fat. Non complicated diverticulitis should be ruled out. Appendix: The appendix is not identified. There is no inflammatory process identified in the right lower quadrant to suggest appendicitis. Lymph nodes: No evidence of retroperitoneal lymph nodes. Vasculature: Infrarenal abdominal aortic aneurysm with endoluminal stent graft. The transverse dimension of the aortic aneurysm measures 6.1 cm. Mural thrombus is seen. Endoluminal stent is seen. Stable endoluminal leak type 2. No evidence of retroperitoneal hematoma. This is unchanged as compared to prior study. Peritoneum / Retroperitoneum: Unremarkable Bones: Degenerative changes of the spine. Status post right total hip replacement. CT/Abdomen/Pelvis W IV Cont ONLY IMPRESSION: Aneurysmal dilatation of the abdominal aorta within the evidence of endoluminal leak. This is unchanged. Sigmoid diverticula. Mild degree of increased inflammatory changes in the sigm oid mesentery suggestive of early sigmoid diverticulitis. The remainder of the examination is unchanged. Reading Location: [place] [id number]
--- NOTE | 2025-01-12 10:48 | EX.ED.DYSGE1 ---
HPI History of Present Illness Chief Complaint: Abd Pain Detail of Chief Complaint: Left lower quadrant abdominal pain since yesterday Informant: patient and spouse/S.O. Onset/Context/Timing Onset: Yesterday Context: Sudden Onset Timing: Continuous Quality: Pain Location: Left lower quadrant Current Severity: Mild Maximum Severity: Moderate Worsened by: Walking and coughing Relieved by: Nothing Associated Symptoms Associated Symptoms: Nausea without vomiting or diarrhea. Endorses constipation Narrative Narrative: Patient is a 85-year-old male. He has history of hernia repair recently by Dr. Bruce, type II endoleak of aortic graft which was evaluated at [facility] November of this year. He is presently under the care of Dustin Haas regarding the type II endoleak. 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 Patient states he contacted Dr. Haas who recommended he come to the emergency department. He states he had a terrible night with had difficulty sleeping. He denies fever or chills. He denies cardiac or respiratory symptoms. He denies urologic symptoms. He denies back or flank pain. Prior similar symptoms: Yes (November 28, 2024, Dr. Gray's note was reviewed.) Recent Illness/Hospitalization: Yes (Transfer to [facility] for evaluation of endoleak of aort) [facility] Medical History Spigelian hernia Wears hearing aid Wears glasses History of steroid therapy Arthritis History of renal disease TIA (transient ischemic attack) Ataxia History of echocardiogram Easy bruising History of IBS Former smoker History of stress test Cardiology follow-up encounter History of irregular heartbeat Preop cardiovascular exam Stenosis of right internal carotid artery Abdominal aortic 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 Essential hypertension Lumbar disc disease 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 Hyperlipidemia Diverticulosis Pre-operative cardiovascular examination Anemia 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, NYHA class 2 RSV (respiratory syncytial virus pneumonia) Shortness of breath Cough productive of purulent sputum Home Medications ?Medication ?Instructions ?Recorded ?Last Taken ?Type losartan 100 mg tablet 100 mg PO DAILY BP 05/17/19 01/12/25 History multivitamin 1 tab PO DAILY supplement 05/18/19 05/21/24 History ascorbic acid (vitamin C) 500 mg 1,000 mg PO DAILY supplement 02/14/20 05/23/24 History capsule carvedilol 12.5 mg tablet 12.5 mg PO BID heart #180 tabs 11/12/21 01/12/25 Rx doxazosin 8 mg tablet 8 mg PO QHS prostate 05/23/24 01/10/25 History hydralazine 100 mg tablet 100 mg PO TID blood pressure 05/23/24 01/12/25 History magnesium oxide 400 mg (241.3 mg 400 mg PO DAILY supplement 05/23/24 05/21/24 History magnesium) tablet aspirin 81 mg chewable tablet 81 mg PO BREAKFAST 30 days #30 tabs 05/24/24 01/12/25 Rx bempedoic acid 180 mg tablet 180 mg PO DAILY 07/11/24 01/12/25 History (Nexletol) ezetimibe 10 mg tablet 10 mg PO DAILY 07/11/24 01/12/25 History levothyroxine 25 mcg tablet 25 mcg PO DAILY 11/28/24 01/12/25 History amoxicillin 875 mg-potassium 875 mg PO Q12H #20 TABLETS 01/12/25 Unknown Rx clavulanate 125 mg tablet cholecalciferol (vitamin D3) 125 125 mcg PO DAILY 01/12/25 Unknown History mcg (5,000 unit) tablet (Vitamin D3) ferrous sulfate 325 mg (65 mg 325 mg PO DAILY 01/12/25 01/12/25 History iron) tablet (Feosol) fluticasone propionate 50 1 spray intranasal QHS PRN nasal 01/12/25 Unknown History mcg/actuation nasal congestion spray,suspension nifedipine 60 mg tablet,extended 60 mg PO DAILY 01/12/25 01/12/25 History release Allergy/AdvReac Type Severity Reaction Status Date / Time lisinopril Allergy Intermediate Rash Verified 01/12/25 10:29 atorvastatin calcium (From Allergy Other Verified 01/12/25 10:29 Lipitor) clonidine Allergy Unknown Verified 01/12/25 10:29 rosuvastatin calcium (From Allergy Other Verified 01/12/25 10:29 Crestor) [id number] Reductase Allergy Other Verified 01/12/25 10:29 Inhibitor (Gitstvl-Xqc-Viu Reductase Inhibitor) Family History Father Lung cancer Liver cancer Mother Oral cancer Surgical History S/P spigelian hernia repair, follow-up exam S/P AAA repair History of right-sided carotid endarterectomy Hx of cataract surgery Hx of appendectomy History of tonsillectomy History of back surgery History of colonoscopy History of blepharoplasty History of inguinal hernia repair History of umbilical hernia repair 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 Social History household members: spouse Smoking Status: Former smoker second hand exposure: No alcohol intake: never substance use type: does not use caffeine: Yes Type: coffee Number of servings: 2 ROS ROS ED Constitutional Constitutional ED: Denies chills, fever(s), subjective, sweats or weight loss Eyes Eyes: Denies blurry vision or change in vision Cardiovascular Cardiovascular: Denies chest pain, orthopnea, palpitations or paroxysmal nocturnal dyspnea Respiratory/Chest Respiratory/Chest: Denies cough, dyspnea, dyspnea on exertion, orthopnea, paroxysmal nocturnal dyspnea or sputum Gastrointestinal Gastrointestinal: Reports abdominal pain and constipation; Denies diarrhea, melena or vomiting Genitourinary Genitourinary ED: Denies dysuria, hematuria or urinary frequency Musculoskeletal Musculoskeletal: Denies arthralgias, back pain, myalgias or neck pain Endocrine Endocrinology: Denies cold intolerance or heat intolerance Hematologic/Lymphatic Hematologic/Lymphatic: Reports systems reviewed and no addt'l complaints, except as documented EXAM Physical Exam Const Vital Signs: 01/12/25 10:30 01/12/25 12:29 Temperature 97.9 F Temperature Source Oral Pulse Rate 68 50 L Respiratory Rate 18 14 Blood Pressure 135/52 H 155/79 H Blood Pressure Mean 79 104 Pulse Ox 99 100 Oxygen Delivery Method Room Air Room Air Positive well nourished and well developed Constitutional Narrative: As I entered the room patient has his hand over the left lower quadrant. He appears in no obvious distress. Vital signs remarkable slight elevation of blood pressure. He states he had swelling of his foot and has reverted back to his prior antihypertensive meds. They were changed when he was at the [facility]. He and his both commented they do not want to go back to [place] and they do not want helicopter ride. General Appearance ED: well developed; Negative for pallor HEENT Reports moist mucous membranes HEENT Narrative: Head is atraumatic normocephalic. Ears normal. Nares Eyes PERRL and EOMs intact bilaterally General Eye ED: Negative for pale conjunctiva or scleral icterus Resp normal respiratory effort and clear to auscultation bilaterally Cardio regular rate, regular rhythm, S1 normal heart sound, S2 normal heart sound and no murmurs GI normal to inspection, nondistended, normoactive bowel sounds, non-distended and no masses; Negative for non-tender or hepatosplenomegaly GI Narrative: There are multiple well-healed scars noted. Auscultation: hypoactive bowel sounds Palpation: soft, tender LLQ and guarding LLQ; Negative for rebound tenderness present Narrative: There is no inguinal lymphadenopathy. Back/Spine no CVA tenderness Extremity normal to inspection Neuro oriented x3 and CN's II-XII intact bilaterally Sensorium / Orientation: alert Psych mental status grossly normal Skin no rashes or lesions noted, no wounds and skin turgor normal General Skin Exam: elasticity normal; Negative for jaundice or pallor MDM MDM MDM Narrative Medical decision making narrative: Differential diagnosis would include diverticulitis, concern for progression of his type II endoleak of aortic graft. Since he was sent to the ER by Dr. Haas's office staff will contact if there is any concern regarding the aortic graft. CBC, electrolyte panel were obtained. Since he has no urologic symptoms UA was not obtained. CT of the abdomen and pelvis with IV contrast was obtained to assess his aorta as well as left lower quadrant since he has well-documented history of diverticulosis. The fact that it is worse with walking, breathing deeply or coughing raises concern this is most likely related to the diverticulosis. History & Record Review Additional record(s) reviewed:: Prior outpatient record, Prior ED visit (Documented HPI narrative) and Prior labs Lab Data Attestation: I reviewed the patient's lab results. Lab results narrative: CBC is remarkable for mild anemia with normal indices. This is essentially unchanged from prior results. Electrolyte panel reveals elevated BUN and creatinine. Creatinine about patient's baseline. Labs: Laboratory Results - last 24 hr 01/12/25 10:47 WBC 5.2 RBC 3.88 L Hgb 11.5 L Hct 35.6 L MCV 91.8 MCH 29.6 MCHC 32.3 RDW Std Deviation 49.7 H RDW Coeff of Erma 14.8 H Plt Count 104 L MPV 10.8 Immature Gran % (Auto) 0.400 Neut % (Auto) 63.2 Lymph % (Auto) 22.3 [place] % (Auto) 9.8 Eos % (Auto) 3.5 Baso % (Auto) 0.8 Absolute Neuts (auto) 3.3 Absolute Lymphs (auto) 1.16 Nucleated RBC % 0 Sodium 138 Potassium 3.9 Chloride 102 Carbon Dioxide 24.7 Anion Gap 11 BUN 38 H Creatinine 1.54 H Estim Creat Clear Calc 33.25 L Est GFR (MDRD) Non-Af 44 L BUN/Creatinine Ratio 24.7 H Glucose 93 Calcium 8.8 Radiography Diagnostic Testing: Clinical Impression(s) from Imaging Studies Abdomen/Pelvis CT 01/12/25 10:39 IMPRESSION: Aneurysmal dilatation of the abdominal aorta within the evidence of endoluminal leak. This is unchanged. Sigmoid diverticula. Mild degree of increased inflammatory changes in the sigmoid mesentery suggestive of early sigmoid diverticulitis. The remainder of the examination is unchanged. Reading Location: [facility] Since the endoleak is unchanged and there is evidence of early diverticulitis we will treat with Augmentin. Since patient is afebrile, has a normal white count and has no peritoneal findings he is a candidate for outpatient therapy. He will receive a prescription for Augmentin since he does not have an allergy to penicillin. Discharge Plan Triage Chief Complaint: Abd Pain ED Provider: Hernandez King Dx/Rx/DC Orders Clinical Impression: Sigmoid diverticulitis, Type II endoleak of aortic graft, Anemia, Elevated blood pressure reading with diagnosis of hypertension Instructions: ED Diverticulitis Prescriptions: New amoxicillin-pot clavulanate 875-125 mg tablet 875 mg PO Q12H Qty: 20 0RF No Action multivitamin Tablet 1 tab PO DAILY losartan 100 mg tablet 100 mg PO DAILY ascorbic acid (vitamin C) 500 mg capsule 1,000 mg PO DAILY carvedilol 12.5 mg tablet 12.5 mg PO BID Qty: 180 0RF magnesium oxide 400 mg (241.3 mg magnesium) tablet 400 mg PO DAILY doxazosin 8 mg tablet 8 mg PO QHS hydralazine 100 mg tablet 100 mg PO TID aspirin 81 mg Tablet,Chewable 81 mg PO BREAKFAST 30 Days Qty: 30 3RF Rx Instructions: Discontinue if platelet count drops less than 50,000 or hemoglobin less than 8 g% nifedipine 60 mg tablet extended release 60 mg PO DAILY ferrous sulfate [Feosol] 325 mg (65 mg iron) tablet 325 mg PO DAILY fluticasone propionate 50 mcg/actuation spray,suspension 1 spray INTRANASAL QHS PRN (Reason: nasal congestion) cholecalciferol (vitamin D3) [Vitamin D3] 125 mcg (5,000 unit) tablet 125 mcg PO DAILY ezetimibe 10 mg tablet 10 mg PO DAILY Nexletol 180 mg tablet 180 mg PO DAILY levothyroxine 25 mcg tablet 25 mcg PO DAILY Primary Care Provider: Dallas Reed Referrals: Dallas Reed MD [Primary Care Provider] - 3-5 Days if not improving Activity Restrictions/Additional Instructions: 1. Take antibiotics until gone. 2 if you develop a fever, your pain becomes worse and spite of the antibiotics or unable to eat or drink anything return to the emergency Print Language: Tongan Disposition Disposition: Home, Self Care
[2025-01-12 11:03] LABS: Absolute Lymphocyte Count 1.16 X10^3/uL (0.83-4.51); Absolute Neutrophil Count 3.3 X10^3/uL (2.0-7.7); Basophil# 0.04 X10^3/uL; Basophil% 0.8 % (0-1); Eosinophil# 0.18 X10^3/uL; Eosinophils% 3.5 % (0-5); Hematocrit 35.6 % (40-54); Hemoglobin 11.5 g/dL (13.0-16.5); Lymphocyte # 1.16 X10^3/ul (0.83-4.51); Lymphocyte % 22.3 % (19-41); Mean Corp Hgb Conc 32.3 g/dL (32-36); Mean Corpuscular Hgb 29.6 pg (27.0-32.0); Mean Corpuscular Volume 91.8 fL (80-94); Mean Platelet Vol. 10.8 fl (6.2-12.0); Monocyte# 0.51 X10^3/uL; Monocyte% 9.8 % (0-10); NRBC Flagged by Analyzer 0 % (0-5); Neutrophil # 3.29 X10^3/uL (2.7-7.7); Neutrophil % 63.2 % (47-70); Platelet Count 104 K/mm3 (150-450); RBC Distribution Width CV 14.8 % (11.6-14.6); RBC Distribution Width SD 49.7 fl (35.1-43.9); Red Blood Count 3.88 M/mm3 (4.6-6.2); White Blood Count 5.2 K/mm3 (4.4-11.0)
[2025-01-12 11:28] LABS: Anion Gap 11 (5-15); BUN 38 mg/dL (4-19); BUN/Creat Ratio 24.7 RATIO (10-20); Calcium,Total 8.8 mg/dL (7.6-11.0); Carbon Dioxide 24.7 mmol/L (21.0-32.0); Chloride 102 mmol/L (98-108); Creatinine, Serum 1.54 mg/dL (0.70-1.20); EST Glomerular Filtration Rate 44 (>60); Estimated Creatinine Clearance 33.25 ml/min (50-250); Glucose 93 mg/dL (70-99); Potassium 3.9 mmol/L (3.3-5.1); Sodium Level 138 mmol/L (133-145)
[2025-01-12 12:29] VITALS: BP 155/79; PULSE 50; RESP 14; O2SAT 100
[2025-01-12] MEDS: Amox/Clavulanate 875 MG Tablet PO (13:35)
[2025-01-12 13:36] VITALS: BP 142/78; PULSE 61; RESP 16; TEMP 36.3; O2SAT 96
== END 2025-01-12 13:36 | disposition home or self-care (01) ==
PROVIDERS: Emergency Provider Emergency Medicine; PCP Internal Medicine; Visit Provider Emergency Medicine
DX: K57.32 Diverticulitis of large intestine without perforation or abscess without bleeding (principal); I11.0 Hypertensive heart disease with heart failure; I50.32 Chronic diastolic (congestive) heart failure; T82.330A Leakage of aortic (bifurcation) graft (replacement), initial encounter; X58.XXXA Exposure to other specified factors, initial encounter; D64.9 Anemia, unspecified; Z79.82 Long term (current) use of aspirin; Z79.899 Other long term (current) drug therapy; Z86.73 Personal history of transient ischemic attack (TIA), and cerebral infarction without residual deficits; Z87.891 Personal history of nicotine dependence
CPT/HCPCS: 74177; 80048; 85025; 99284; Q9967; A4216

== ENCOUNTER → 2025-01-18 | Outpatient (CLI) | payer MEDICARE, OTHER, SELFPAY ==
--- NOTE | 2025-01-18 14:58 | CT_ITS ---
PROCEDURE: CTA ABD/PELVIS W/WO CONTRAST 01/18/2025 REASON FOR EXAM: AAA S/P EVAR, TYPE II ENDOLEAK, SURVEILLANCE TECHNIQUE: CTA imaging of the abdomen and pelvis with and without intravenous contrast. Noncontrast, arterial, and venous phase imaging was obtained. Multiplanar and multisequence images were obtained. CONTRAST: Isovue-300 VOLUME: 100 ML One or more dose reduction techniques were used (e.g., Automated exposure control, adjustment of the mA and/or kV according to patient size, use of iterative reconstruction technique). RADIATION DOSE SUMMARY: CTDlvol: 50 mGy DLP: 1500 mGycm COMPARISON: CT abdomen pelvis 01/12/2025, CTA abdomen pelvis 12/27/2023. FINDINGS: Lung bases: Emphysema with bibasilar atelectasis/scarring. Moderate cardiomegaly and coronary artery and aortic valvular calcifications. Liver: The liver is normal in size without focal hepatic mass. The major portal veins are patent. No biliary ductal dilation. Gallbladder: No radiopaque stones within the gallbladder. Spleen: Severe splenomegaly measuring 18.3 cm. Pancreas: Atrophic pancreas. Small cyst within the pancreatic neck (series 4, image 59), without obvious communication with the main pancreatic duct. Adrenals: No adrenal mass. Kidneys: Mild symmetric renal cortical atrophy. Small bilateral renal cysts and additional hypodensities. Calcification, likely vascular. No hydronephrosis. Bladder: The urinary bladder is distended with large right posterior diverticulum. Reproductive Organs: Mildly enlarged prostate. Visualization of the pelvis is limited by streak artifact. Bowel: The bowel loops are nondilated. No ascites or pneumoperitoneum. No inflammatory mass in the expected region of the appendix. Severe colonic diverticulosis with diffuse wall thickening of the sigmoid colon. No obvious inflamed diverticula visualized. Lymph nodes: No suspicious lymph node enlargement. Bones: Prior right total hip arthroplasty. Degenerative changes throughout the thoracolumbar spine. Vasculature: Prior infrarenal aorto bi-iliac stent grafting. Increased size of the excluded abdominal aortic aneurysm measuring up to 6.5 cm (series 4, image 78), previously measuring 6.1 cm in 2023, and 5.4 cm in 2022 when measured in a similar fashion. 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 Stable ectasia of the bilateral common iliac arteries. Mild to moderate mixed atherosclerotic plaque throughout the bilateral common, internal and external iliac arteries. Calcific plaque of the celiac trunk, SMA and bilateral renal arteries resulting in moderate narrowing at their origins. CT/CTA Abd/Pelvis W/WO Contrast IMPRESSION: 1. Prior infrarenal aorto bi-iliac stent grafting with continued increased size in the type IIa inferior mesenteric artery endoleak as described. Consultation with vascular surgery or interventional ra diology is recommended. 2. Severe colonic diverticulosis with diffuse wall thickening of the sigmoid co tony. No obvious inflamed diverticula. Correlation with patient symptoms recommended. 3. Persistent severe splenomegaly. Reading Location: [id number]
== END | disposition home or self-care (01) ==
LOC: CT 14:57
PROVIDERS: PCP Internal Medicine; Referring Provider Physician Assistant; Visit Provider Physician Assistant
DX: I97.89 Other postprocedural complications and disorders of the circulatory system, not elsewhere classified (principal); I71.43 Infrarenal abdominal aortic aneurysm, without rupture
CPT/HCPCS: 74174; Q9967

== ENCOUNTER 2025-02-14 09:24 | Day surgery (SDC) | payer MEDICARE, OTHER, SELFPAY ==
[2025-02-13 07:14] VITALS: BMI 22.5
[2025-02-14 09:40] LABS: Hematocrit 35.2 % (40-54); Hemoglobin 11.6 g/dL (13.0-16.5); Mean Corpuscular Hgb 30.6 pg (27.0-32.0); Mean Corpuscular Volume 92.9 fL (80-94); Mean Platelet Vol. 11.1 fl (6.2-12.0); Platelet Count 113 K/mm3 (150-450); RBC Distribution Width SD 51.3 fl (35.1-43.9); Red Blood Count 3.79 M/mm3 (4.6-6.2)
[2025-02-14 10:13] LABS: Anion Gap 12 (5-15); BUN 50 mg/dL (4-19); BUN/Creat Ratio 28.6 RATIO (10-20); Calcium,Total 9.5 mg/dL (7.6-11.0); Carbon Dioxide 25.1 mmol/L (21.0-32.0); Chloride 102 mmol/L (98-108); Creatinine, Serum 1.73 mg/dL (0.70-1.20); EST Glomerular Filtration Rate 38 (>60); Estimated Creatinine Clearance 29.64 ml/min (50-250); Glucose 110 mg/dL (70-99); Potassium 4.5 mmol/L (3.3-5.1); Sodium Level 139 mmol/L (133-145)
--- NOTE | 2025-02-14 11:33 | HP.PCM_ITS ---
HPI - General HPI Narrative CAROLINA SY, is a 85 M who presents with prior EVAR with type II endoleak, increasing residual sac. Patent MUNDO with robust communication with SMA; 2 lumbar arteries. [facility] Medical History Spigelian hernia Wears hearing aid Wears glasses History of steroid therapy Arthritis History of renal disease TIA (transient ischemic attack) Ataxia History of echocardiogram Easy bruising History of IBS Former smoker History of stress test Cardiology follow-up encounter History of irregular heartbeat Preop cardiovascular exam Stenosis of right internal carotid artery Abdominal aortic 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 Essential hypertension Lumbar disc disease 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 Hyperlipidemia Diverticulosis Pre-operative cardiovascular examination Anemia 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, NYHA class 2 RSV (respiratory syncytial virus pneumonia) Shortness of breath Cough productive of purulent sputum Home Medications ?Medication ?Instructions ?Recorded ?Last Taken ?Type losartan 100 mg tablet 100 mg PO DAILY BP 05/17/19 02/14/25 History multivitamin 1 tab PO DAILY supplement 05/21/24 History ascorbic acid (vitamin C) 500 mg 1,000 mg PO DAILY sup plement 02/14/20 05/23/24 History capsule carvedilol 12.5 mg tablet 12.5 mg PO BID heart #180 ta bs 11/12/21 02/14/25 Rx doxazosin 8 mg tablet 8 mg PO QHS prostate 4 01/10/25 History hydralazine 100 mg tablet 100 mg PO TID blood pressure 05/23/24 02/14/25 History magnesium oxide 400 mg (241.3 mg 400 mg PO DAILY suppl ement 05/23/24 05/21/24 History magnesium) tablet aspirin 81 mg chewable tablet 81 mg PO BREAKFAST 30 da ys #30 tabs 05/24/24 01/12/25 Rx bempedoic acid 180 mg tablet 180 mg PO DAILY 07/11/24 01/12/25 History (Nexletol) ezetimibe 10 mg tablet 10 mg PO DAILY 07/11/2401/19 History levothyroxine 25 mcg tablet 25 mcg PO DAILY 11/28/24 0 02/14/25 History amoxicillin 875 mg-potassium 875 mg PO Q12H #20 TABLET S 01/12/25 Unknown Rx clavulanate 125 mg tablet cholecalciferol (vitamin D3) 125 125 mcg PO DAILY 12/20 02/11 Unknown History mcg (5,000 unit) tablet (Vitamin D3) ferrous sulfate 325 mg (65 mg 325 mg PO DAILY 01/12/25 01/12/25 History iron) tablet (Feosol) fluticasone propionate 50 1 spray intranasal QHS PRN n mary 01/12/25 Unknown History mcg/actuation nasal congestion spray,suspension nifedipine 60 mg tablet,extended 60 mg PO DAILY 02/14/25 History release Allergy/AdvReac Type Severity Reaction Status Date / Time lisinopril Allergy Intermediate Rash Verified 01/12/25 10:29 atorvastatin calcium (From Allergy Other Verified 01/12/25 10:29 Lipitor) clonidine Allergy Unknown Verified 01/12/25 10:29 rosuvastatin calcium (From Allergy Other Verified 01/12/25 10:29 Crestor) [id number]-[id number] Reductase Allergy Other Verified 01/12/25 10:29 Inhibitor (Uoojiey-Xvr-Lvg Reductase Inhibitor) Family History Father Lung cancer Liver cancer Mother Oral cancer Surgical History S/P spigelian hernia repair, follow-up exam S/P AAA repair History of right-sided carotid endarterectomy Hx of cataract surgery Hx of appendectomy History of tonsillectomy History of back surgery History of colonoscopy History of blepharoplasty History of inguinal hernia repair History of umbilical hernia repair 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 Social History household members: spouse Smoking Status: Former smoker second hand exposure: No alcohol intake: never substance use type: does not use caffeine: Yes Type: coffee Number of servings: 2 ROS Constitutional Constitutional: Denies chills, fever(s), frequent falls, lethargy or weakness Eyes Eyes: Denies blind spots, change in vision or loss of vision ENT HEENT: Denies bleeding gums, hoarseness or sore throat Cardiovascular Cardiovascular: Denies abdominal pain, bluish discoloration of hand/feet, chest pain with activity, claudication, cold extremities, cyanosis, dyspnea on exertion, erythema on extremities, irregular heart rhythm, leg edema, leg ulcers, numbness in extremities or weakness in extremities Respiratory/Chest Respiratory/Chest: Denies cough, excessive phlegm production, shortness of breath at rest, shortness of breath with exertion or wheezing Gastrointestinal Gastrointestinal: Denies anorexia, change in stool character, constipation, diarrhea, melena or rectal bleeding Genitourinary Genitourinary: Denies dysuria or hematuria Musculoskeletal Musculoskeletal: Denies abnormal gait Integumentary Integumentary: Reports other Details: ; Denies erythema, non-healing lesions or wounds Neurologic Neurologic: Denies abnormal speech, focal weakness, headache(s), loss of vision, numbness, paresthesias or sensory deficit Hematologic/Lymphatic Hematologic/Lymphatic: Denies easy bleeding, easy bruising or lymphadenopathy Vital Signs Vital Signs Vital Signs: Weight Weight: 148 lb Body Mass Index (BMI) 22.5 Physical Exam Const alert, oriented x3, no apparent distress and healthy appearing General Appearance: cooperative; Negative for combative or lethargic Orientation / Consciousness: awake Exam Limitations: no limitations HEENT Head and Scalp: normocephalic and atraumatic Eyes EOMs intact bilaterally General Eye: normal appearance of both eyes Neck full ROM and no lymphadenopathy General: trachea midline Resp normal respiratory effort and no use of accessory muscles Effort and Inspection: Negative for labored, stridor or audible wheezes Cardio regular rate and regular rhythm Peripheral Pulses: brachial pulses present and radial pulses present Back/Spine Cervical Spine: cervical ROM normal Extremity full ROM, normal capillary refill and no clubbing, cyanosis or edema Skin no rashes or lesions noted and no wounds Neuro oriented x3, CN's II-XII intact bilaterally, no focal motor deficits and no sensory deficits noted Psych thought process normal, cooperative, affect normal, speech normal and activity/motor behavior normal Results Lab / Micro Data 02/14/25 09:29 02/14/25 09:29 Labs: Laboratory Results - last 24 hr 02/14/25 09:29: WBC 6.0, RBC 3.79 L, Hgb 11.6 L, Hct 35.2 L, MCV 92.9, MCH 30.6, MCHC 33.0, RDW Std Deviation 51.3 H, RDW Coeff of Erma 15.0 H, Plt Count 113 L, MPV 11.1, Sodium 139, Potassium 4.5, Chloride 102, Carbon Dioxide 25.1, Anion Gap 12, BUN 50 H, Creatinine 1.73 H, Estim Creat Clear Calc 29.64 L, Est GFR (MDRD) Non-Af 38 L, BUN/Creatinine Ratio 28.6 H, Glucose 110 H, Calcium 9.5 Assessment & Plan Assessment/Plan (1) Type II endoleak of aortic graft: PLAN: -angio, possible coil MUNDO
--- NOTE | 2025-02-14 16:13 | PCM.OPRPT ---
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 This had been followed with serial imaging with initially no significant aneurysm sac growth however over the last several imaging studies there has been significant growth noted. He is taken now for angiogram with an effort to coil the inferior mesenteric artery via accessing the superior mesenteric artery and the arc of [place]. Description of procedure: Upon obtaining informed consent and verification correct patient procedure and site the patient taken to the Test Engineer he was positioned prepped and draped in usual sterile fashion. Timeout was performed and conscious sedation ministered Versed and fentanyl. Initial efforts were planned from radial access in an effort to improve the work angle with a superior mesenteric artery. Skin overlying the right radial artery was anesthetized with 1% lidocaine the vessel accessed with a micropuncture needle wire to then exchanged for a 6 [place] radial sheath. Through this verapamil, nitro, and heparin were infused. Next Bentson wire and a KMP catheter were advanced navigating through the excellent brachial arteries and into the aortic arch. We then navigated the arch and into the descending thoracic aorta advancing wire and catheter to the hub. The 100 cm catheter reached approximately midway through the thoracic aorta likely due to tortuosity within the arch in the proximal thoracic aorta. Given the distance to the superior mesenteric artery let alone navigating the branches to access the inferior mesenteric artery it was felt that we had no chance to complete intervention from the radial access. Next skin overlying the right common femoral artery was anesthetized with 1% lidocaine and the vessel accessed under ultrasound guidance with a micropuncture needle wire. This then exchanged for micropuncture sheath through which hand-injection iliofemoral angiograms performed revealing satisfactory position with no extravasation or dissection. Through the micropuncture sheath Bentson wires advanced the micropuncture sheath exchanged for a short 6 Cambodian sheath. Through a 6 [place]odian sheath Bentson wire was advanced into the abdominal aorta and a straight flush catheter advanced to the visceral segment and subtraction aortogram performed with oblique views in an effort to identify the origin of the superior mesenteric artery. Patient had an abnormally low superior mesenteric artery origin just above the renal arteries and in close proximity to the endograft. The Bentson wire was then readvanced and the short 6 [place] sheath in flush catheter exchanged for a 6 Cambodian Ansell 2 sheath and utilizing this along with a Glidewire and the angled catheter efforts were made to engage the superior mesenteric artery. Ultimately were able to get the Glidewire into the supra mesenteric artery but we were unable to advance any catheters. Multiple varying catheter and sheath shapes were utilized including an Ansell 1, and MUNDO catheter, and MUNDO guide with an angled glide catheter all of which failed to both access the superior mesenteric artery and obtain sufficient purchase to advance into the vessel. After exhausting reasonable efforts we felt that no further efforts were warranted so the long 6 Camb[place]ian sheath was exchanged for a short 6 Cambodian sheath and a minx closure device deployed followed by manual pressure. After releasing manual pressure was noted there was hematoma forming so prolonged manual pressure was held and the patient taken the recovery area with planned discharge home after prolonged bedrest. Surgical Findings: See above Complications Complications: No
[2025-02-14 16:59] VITALS: BP 136/70; PULSE 74; RESP 16; O2SAT 96
[2025-02-14 18:07] VITALS: BP 158/81; PULSE 73
[2025-02-14 19:02] VITALS: BP 156/87; PULSE 74; O2SAT 95
[2025-02-14 20:08] VITALS: BP 146/78; PULSE 70; RESP 18; TEMP 36.9; O2SAT 97
--- NOTE | 2025-02-14 20:46 | NURSING ---
Addendum entered by Viviana Wang 02/14/25 20:55: pt wheeled down to the front door by the aid. Original Note: pt's got up to the bathroom @ 2015, tolerated well, no dizziness. Pt dressed up and took for a small walk, denies dizziness, no discomfort, r radial and r femoral sites c/d/i. VSS, iv and heart monitor removed. DCd with to home, education provided to pt and both understandable.
[2025-02-14 20:53] VITALS: BP 143/76; PULSE 73; RESP 17; TEMP 36.5; O2SAT 94
== END 2025-02-14 21:01 | disposition home or self-care (01) ==
LOC: CLSP 09:26 → PCU 16:40
PROVIDERS: PCP Internal Medicine; Referring Provider Surgery Trauma Surgery; Visit Provider Surgery Trauma Surgery
DX: T82.330A Leakage of aortic (bifurcation) graft (replacement), initial encounter (principal); I10 Essential (primary) hypertension; X58.XXXA Exposure to other specified factors, initial encounter; Z79.82 Long term (current) use of aspirin; Z79.899 Other long term (current) drug therapy; Z87.891 Personal history of nicotine dependence
CPT/HCPCS: 36200; 36415; 75625; 76937; 80048; 85027; 99152; 99153; C1760; C1769; C1894; Q9967; C1887

== ENCOUNTER → 2025-04-30 | Outpatient (CLI) | payer MEDICARE, OTHER, SELFPAY ==
--- NOTE | 2025-04-30 14:00 | CT_ITS ---
PROCEDURE: CTA ABD/PELVIS W/WO CONTRAST 04/30/2025 REASON FOR EXAM: AAA, S/P EVAR, COIL OF ENDOLEAK TECHNIQUE: CTA ABD/PELVIS W/WO CONTRAST Multiplanar Sagittal and Coronal images were obtained. 3D and or MIPS post processing was performed CONTRAST: Isovue 370 VOLUME: 100 mL One or more dose reduction techniques were used (e.g., Automated exposure control, adjustment of the mA and/or kV according to patient size, use of iterative reconstruction technique). RADIATION DOSE SUMMARY: CTDlvol: 18.6 mGy DLP: 442.54 mGycm COMPARISON: Prior study dated January 18, 2025. FINDINGS: Aorta: Atherosclerotic plaque formation of the infrarenal abdominal aorta. Persistent aneurysmal dilatation of the [place] abdominal aorta with a transverse dimension of 51 mm. The patient is status post endoluminal stent grafting of the [place] abdominal aortic aneurysm with the proximal tip in the aorta and the distal tip in the common iliac arteries bilaterally. There is evidence of a coil seen along the left side of the distal aortic stent just proximal to the left common iliac artery. Metallic artifact is seen at that site. There is a 2.3 cm by 1.9 cm high density projected over the site of the stent on the left side. This may represent focal contrast accumulation. Iliac Arteries: Graft is patent. Extravascular Findings: Once again, there is a marked degree of splenomegaly. CT/CTA Abd/Pelvis W/WO Contrast IMPRESSION: Status post endoluminal stent grafting as described with coil placed in the dis sharon portion of the abdominal aorta on the left side. Questionable localized contrast retention Reading Location: [facility]
--- NOTE | 2025-04-30 14:00 | CT_ITS ---
PROCEDURE: CTA ABD/PELVIS W/WO CONTRAST 04/30/2025 REASON FOR EXAM: AAA, S/P EVAR, COIL OF ENDOLEAK TECHNIQUE: CTA ABD/PELVIS W/WO CONTRAST Multiplanar Sagittal and Coronal images were obtained. 3D and or MIPS post processing was performed CONTRAST: Isovue 370 VOLUME: 100 mL One or more dose reduction techniques were used (e.g., Automated exposure control, adjustment of the mA and/or kV according to patient size, use of iterative reconstruction technique). RADIATION DOSE SUMMARY: CTDlvol: 18.6 mGy DLP: 442.54 mGycm COMPARISON: Prior study dated January 18, 2025. FINDINGS: Aorta: Atherosclerotic plaque formation of the infrarenal abdominal aorta. Persistent aneurysmal dilatation of the [place] abdominal aorta with a transverse dimension of 51 mm. The patient is status post endoluminal stent grafting of the [place] abdominal aortic aneurysm with the proximal tip in the aorta and the distal tip in the common iliac arteries bilaterally. There is evidence of a coil seen along the left side of the distal aortic stent just proximal to the left common iliac artery. Metallic artifact is seen at that site. There is a 2.3 cm by 1.9 cm high density projected over the site of the stent on the left side. This may represent focal contrast accumulation. Iliac Arteries: Graft is patent. Extravascular Findings: Once again, there is a marked degree of splenomegaly. CT/CTA Abd/Pelvis W/WO Contrast IMPRESSION: Status post endoluminal stent grafting as described with coil placed in the dis sh[place] portion of the abdominal aorta on the left side. Questionable localized contrast retention Reading Location: [facility]
== END | disposition home or self-care (01) ==
LOC: CT 14:00
PROVIDERS: PCP Internal Medicine; Referring Provider Surgery Trauma Surgery; Visit Provider Surgery Trauma Surgery
DX: Z48.812 Encounter for surgical aftercare following surgery on the circulatory system (principal); I71.43 Infrarenal abdominal aortic aneurysm, without rupture; I97.89 Other postprocedural complications and disorders of the circulatory system, not elsewhere classified
CPT/HCPCS: 74174; Q9967

== ENCOUNTER → 2025-05-10 | Outpatient (CLI) | payer MEDICARE, OTHER, SELFPAY ==
[2025-05-10 10:43] LABS: Anion Gap 11 (5-15); BUN 41 mg/dL (4-19); BUN/Creat Ratio 27.0 RATIO (10-20); Calcium,Total 9.1 mg/dL (7.6-11.0); Carbon Dioxide 26.1 mmol/L (21.0-32.0); Chloride 101 mmol/L (98-108); Glucose 98 mg/dL (70-99); Magnesium 2.3 mg/dL (1.5-2.2); Potassium 4.1 mmol/L (3.3-5.1)
[2025-05-10 10:45] LABS: Pro- Brain NATRIURETIC PEPTIDE 5468 pg/mL (<=1800)
== END | disposition home or self-care (01) ==
LOC: LAB 08:52
PROVIDERS: PCP Internal Medicine; Referring Provider Nurse Practitioner Family; Visit Provider Nurse Practitioner Family
DX: I50.30 Unspecified diastolic (congestive) heart failure (principal)
CPT/HCPCS: 36415; 80048; 83735; 83880

== ENCOUNTER 2025-05-21 01:21 | Inpatient (IN) | payer MEDICARE, OTHER, SELFPAY ==
[2025-05-21] VITALS (35 sets, daily range): BP systolic 99–141; BP diastolic 55–102; PULSE 67–701; RESP 9–30; TEMP 36.6–36.9; O2SAT 92–100; BMI 21.4; BMI 21.2
--- NOTE | 2025-05-21 01:31 | EKG12_ITS ---
Test Reason : REPEAT Blood Pressure : */* mmHG Vent. Rate : 85 BPM Atrial Rate : 85 BPM P-R Int : 170 ms QRS Dur : 96 ms QT Int : 420 ms P-R-T Axes : 71 68 138 degrees QTcB Int : 499 ms Critical Test Result: STEMI Sinus rhythm with occasional Premature ventricular complexes Left ventricular hypertrophy with repolarization abnormality ( Romhilt-Noguera ) ST elevation consider inferior injury or acute infarct QTcB >= 480 msec ACUTE MA / STEMI Consider right ventricular involvement in acute inferior infarct Abnormal ECG Confirmed by Alexandru Laughlin ([id number]), editorial assistant TORIE MUKHERJEE ([id number]) on 05/22/2025 10:46:46 AM Referred By: Confirmed By: Alexandru Laughlin
--- NOTE | 2025-05-21 01:45 | EKG12_ITS ---
Test Reason : REPEAT Blood Pressure : */* mmHG Vent. Rate : 85 BPM Atrial Rate : 85 BPM P-R Int : 176 ms QRS Dur : 96 ms QT Int : 418 ms P-R-T Axes : 64 62 252 degrees QTcB Int : 497 ms Sinus rhythm with occasional Premature ventricular complexes Left ventricular hypertrophy with repolarization abnormality ( Sokolow-Lindsay , Romhilt-Noguera ) QTcB >= 480 msec Abnormal ECG Confirmed by Alexandru Laughlin [id number]), commissioning editor TORIE MUKHERJEE ([id number]) on 05/22/2025 10:46:57 AM Referred By: Confirmed By: Alexandru Laughlin
[2025-05-21] MEDS: 0.9% Normal Saline (1000mL) 1,000 ML 150 ML IV (01:51)
--- NOTE | 2025-05-21 01:54 | ED.VIS.CHEST ---
HPI History of Present Illness Chief Complaint: Chest Pain Informant: patient and spouse/S.O. Narrative Narrative: Patient is 85-year-old male with history of diastolic heart failure, abdominal aortic aneurysm, right internal carotid stenosis, hypertension, hyperlipidemia and type II endoleak of aortic graft presenting with chest pain and shortness of breath. Patient states he got out of bed around 1130 and felt he could not breathe. He states his chest was carrying all and he sat up and try to walk around. He was feeling short of breath. He denies any chest pain but does report a vague chest discomfort. He states he was in his normal state of health when he went to bed tonight. He notes he recently was on a short course of diuretic per cardiology and they been making some medication changes. He tried to take an antacid thinking it was indigestion with this was not helpful. Came in for further evaluation. He denies any abdominal pain at this time. Denies any recent swelling of his legs. Denies any recent fever or chills. [facility] Medical History Spigelian hernia Wears hearing aid Wears glasses History of steroid therapy Arthritis History of renal disease TIA (transient ischemic attack) Ataxia History of echocardiogram Easy bruising History of IBS Former smoker History of stress test Cardiology follow-up encounter History of irregular heartbeat Preop cardiovascular exam Stenosis of right internal carotid artery Abdominal aortic 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 Essential hypertension Lumbar disc disease 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 Hyperlipidemia Diverticulosis Pre-operative cardiovascular examination Anemia 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, NYHA class 2 RSV (respiratory syncytial virus pneumonia) Shortness of breath Cough productive of purulent sputum Home Medications ?Medication ?Instructions ?Recorded ?Last Taken ?Type losartan 100 mg tablet 100 mg PO DAILY BP 05/17/19 02/14/25 History multivitamin 1 tab PO DAILY supplement 05/18/19 05/21/24 History ascorbic acid (vitamin C) 500 mg 1,000 mg PO DAILY supplement 02/14/20 05/23/24 History capsule doxazosin 8 mg tablet 8 mg PO QHS prostate 05/23/24 01/10/25 History hydralazine 100 mg tablet 100 mg PO TID blood pressure 05/23/24 02/14/25 History magnesium oxide 400 mg (241.3 mg 400 mg PO DAILY supplement 05/23/24 05/21/24 History magnesium) tablet bempedoic acid 180 mg tablet 180 mg PO DAILY 07/11/24 01/12/25 History (Nexletol) ezetimibe 10 mg tablet 10 mg PO DAILY 07/11/24 02/14/25 History levothyroxine 25 mcg tablet 25 mcg PO DAILY 11/28/24 02/14/25 History cholecalciferol (vitamin D3) 125 125 mcg PO DAILY 01/12/25 Unknown History mcg (5,000 unit) tablet (Vitamin D3) ferrous sulfate 325 mg (65 mg 325 mg PO DAILY 01/12/25 01/12/25 History iron) tablet (Feosol) nifedipine 60 mg tablet,extended 60 mg PO DAILY 01/12/25 02/14/25 History release furosemide 40 mg tablet (Lasix) 40 mg PO DAILY PRN SOB #14 tabs 05/10/25 Unknown Rx carvedilol 6.25 mg tablet 6.25 mg PO BID 05/21/25 Unknown History furosemide 20 mg tablet 20 mg PO DAILY 05/21/25 Unknown History Allergy/AdvReac Type Severity Reaction Status Date / Time lisinopril Allergy Intermediate Rash Verified 05/21/25 01:22 atorvastatin calcium (From Allergy Other Verified 05/21/25 01:22 Lipitor) clonidine Allergy Unknown Verified 05/21/25 01:22 rosuvastatin calcium (From Allergy Other Verified 05/21/25 01:22 Crestor) Xfbarnf-DPN-WdQ Reductase Allergy Other Verified 05/21/25 01:22 Inhibitor (Knkotya-Wsb-Qlq Reductase Inhibitor) Family History Father Lung cancer Liver cancer Mother Oral cancer Surgical History S/P spigelian hernia repair, follow-up exam S/P AAA repair (~02/2025) History of right-sided carotid endarterectomy Hx of cataract surgery Hx of appendectomy History of tonsillectomy History of back surgery History of colonoscopy History of blepharoplasty History of inguinal hernia repair History of umbilical hernia repair 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 Social History household members: spouse Smoking Status: Former smoker second hand exposure: No alcohol intake: never substance use type: does not use caffeine: Yes Type: coffee Number of servings: 2 ROS ROS ED Constitutional Constitutional ED: Denies chills or fever(s) Cardiovascular Cardiovascular: Reports as per HPI and palpitations Respiratory/Chest Respiratory/Chest: Reports dyspnea; Denies cough Gastrointestinal Gastrointestinal: Denies abdominal pain, nausea or vomiting Musculoskeletal Musculoskeletal: Denies arthralgias or myalgias Neurologic Neurologic: Denies weakness Hematologic/Lymphatic Hematologic/Lymphatic: Denies easy bleeding or easy bruising EXAM Physical Exam Const Vital Signs: 05/21/25 01:21 05/21/25 01:31 05/21/25 01:54 Temperature 98.4 F Temperature Source Oral Pulse Rate 160 H 140 H Respiratory Rate 26 H 30 H Blood Pressure 141/102 H 138/99 H Blood Pressure Mean 115 112 Pulse Ox 98 100 Oxygen Delivery Method Room Air Room Air 05/21/25 01:56 05/21/25 03:00 05/21/25 03:38 Temperature 98 F Temperature Source Pulse Rate 87 82 85 Respiratory Rate 15 17 Blood Pressure 116/77 130/80 H Blood Pressure Mean 90 96 Pulse Ox 96 98 Oxygen Delivery Method Room Air Positive well nourished and well developed General Appearance ED: well developed and NAD HEENT Reports moist mucous membranes normocephalic Eyes PERRL Neck supple and no JVD Chest Wall inspection of chest normal and palpation of chest normal Resp normal respiratory effort and clear to auscultation bilaterally Cardio regular rhythm and no murmurs Rate: tachycardic GI normal to inspection, nondistended, normoactive bowel sounds and soft to palpation Extremity normal to inspection Extremity Narrative: 2+ radial and DP pulses General Extremety ED: Negative for edema General Extremity: Negative for edema Neuro oriented x3 Sensorium / Orientation: awake and alert Motor Exam: general weakness Psych mental status grossly normal Skin no rashes or lesions noted and no wounds Heart Score History: Moderately Suspicious ECG: Significant ST-Depression Age: >/= 65 years Risk Factors: >/= 3 Risk Factors or History of CAD Troponin: >/=3 x Normal Limit Score: 9 MDM MDM MDM Narrative Medical decision making narrative: Patient is an 85-year-old male presenting with sudden onset shortness of breath chest discomfort that woke him up from sleep. He has a history of vascular disease and as well as diastolic heart failure. Upon arrival patient's heart rate is 160. Differential includes atrial flutter, atrial fibrillation, ACS, electrolyte derangement, thyroid storm, pneumothorax, CHF exacerbation and pleural effusion. Patient given IV metoprolol as his pressure is normal if not slightly elevated and he does not require emergent cardioversion. He is mentating appropriately. During administration of the second bolus of 5 mg IV metoprolol he converts into normal sinus rhythm. Repeat EKG does show significant ST abnormalities with ST elevation in lead III and ST depressions in lateral leads. He is now chest pain-free. Case is discussed with cardiology, Dr. Mcdowell, and he reviewed the EKG. He recommends starting the patient on heparin drip but agrees that this is not a STEMI and likely more strain related to his recent arrhythmia. Plan to admit to the ICU however in case he goes back into his arrhythmia or has further chest pain he would require nitroglycerin drip. Plan for echocardiogram in the morning. EKG #3 has now returned to his baseline and shows chronic T wave inversions in V3 and V6 but no further ST depressions or elevations. Initial high-sensitivity troponin is 93. Lab work otherwise remarkable for CKD with a creatinine of 1.68, and elevated TSH of 9.79 and mild anemia with a hemoglobin of 10.5. Chest x-ray viewed by myself as well as radiology is consistent with worsening pulmonary vascular congestion and does show cardiomegaly. BNP is added on. Case is discussed with hospitalist for admission. History & Record Review Additional record(s) reviewed:: Prior outpatient record (Cardiology visit note-complaining of orthopnea-labs obtained. 40 mg Lasix (doubled) for 3 days.) and Prior labs (BNP 5468 on 05/10/2025) Lab Data Attestation: I reviewed the patient's lab results. Labs: Laboratory Results - last 24 hr 05/21/25 05/21/25 01:25 03:35 WBC 4.5 RBC 3.58 L Hgb 10.5 L Hct 32.6 L MCV 91.1 MCH 29.3 MCHC 32.2 RDW Std Deviation 49.6 H RDW Coeff of Erma 14.7 H Plt Count 92 L MPV 11.2 Immature Gran % (Auto) 0.700 Neut % (Auto) 73.0 H Lymph % (Auto) 16.2 L [place] % (Auto) 5.8 Eos % (Auto) 3.6 Baso % (Auto) 0.7 Absolute Neuts (auto) 3.3 Absolute Lymphs (auto) 0.72 L Nucleated RBC % 0 PT 16.0 H INR 1.3 APTT 45.1 H Sodium 140 Potassium 4.2 Chloride 104 Carbon Dioxide 21.4 Anion Gap 15 BUN 46 H Creatinine 1.86 H Estim Creat Clear Calc 26.20 L Est GFR (MDRD) Non-Af 35 L BUN/Creatinine Ratio 24.7 H Glucose 115 H Calcium 9.2 Magnesium 2.1 Troponin T High Sens 93 H* Troponin T Hi Sens 2 Hr 222 H* NT pro BNP II 3942 H TSH 9.790 H Radiography Diagnostic Testing: Clinical Impression(s) from Imaging Studies Chest X-Ray 05/21/25 02:05 IMPRESSION: Increased mild central pulmonary venous congestion. Unchanged emphysema. Mild increase in bilateral basilar atelectatic pulmonary changes. Reading Location: [place] [address] Rhythm Strip Rhythm Strip: Atrial flutter Rate: 153 Ectopy: None EKG Initial EKG: Attestation: I personally reviewed and interpreted this EKG as follows: Interpretation: Atrial Flutter Comments: Tachyarrhythmia at a rate of 153 bpm, suspect this is atrial flutter with 2-[address] depressions relatively diffusely with mild biphasic T wave changes of lead III consistent with subendocardial injury This is an acute change compared to prior EKG Prior: Changed 2: Attestation: I personally reviewed and interpreted this EKG as follows: Interpretation: Sinus Rhythm Comments: Normal sinus rhythm at a rate of 85 bpm Normal axis [address] elevation in lead III with ST depressions in 1, aVL, V4 through V6 These changes are more pronounced than when compared to patient's baseline EKGs. PVC present Prior: Changed 3: Attestation: I personally reviewed and interpreted this EKG as follows: Interpretation: Sinus Rhythm Comments: Normal sinus rhythm at a rate of 85 bpm with occasional PVCs Normal axis Normal intervals LVH with repolarization abnormality This is consistent patient's prior EKGs/based Management Discussion w/another healthcare provider: Hospitalist and Lift Builder Whole Critical Care Time Critical Care Time: Yes Critical care time (excluding procedures): 30-74 minutes (40), Including time spent: (2 doses of IV metoprolol for arrhythmia), Discussing w/Patient &/or Family/Genetic Technologist, Discussing w/Consultants, Arranging Admission or Transfer and Performing Direct Patient Care at Bedside Discharge Plan Dx/Rx/DC Orders Clinical Impression: New onset atrial flutter, Non-ST elevation [place] (NSTEMI), Acute exacerbation of chronic heart failure Disposition Disposition: Acute Care Hospital [facility] Discharge Date/Time: 05/21/25 04:43
[2025-05-21 02:04] LABS: Hematocrit 32.6 % (40-54); Hemoglobin 10.5 g/dL (13.0-16.5); Immature Granulocytes Count 0.030 X10^3/uL (0.0-0.0); Mean Corp Hgb Conc 32.2 g/dL (32-36); Mean Corpuscular Volume 91.1 fL (80-94); Mean Platelet Vol. 11.2 fl (6.2-12.0); NRBC Flagged by Analyzer 0 % (0-5); POSITIVE COUNT YES; Platelet Count 92 K/mm3 (150-450); RBC Distribution Width CV 14.7 % (11.6-14.6); RBC Distribution Width SD 49.6 fl (35.1-43.9); Red Blood Count 3.58 M/mm3 (4.6-6.2); White Blood Count 4.5 K/mm3 (4.4-11.0)
--- NOTE | 2025-05-21 02:05 | RAD_ITS ---
PROCEDURE: CHEST 1 VIEW (PORTABLE) 05/21/2025 REASON FOR EXAM: CHEST PAIN TECHNIQUE: Frontal view of the chest. COMPARISON: 07/11/2024. FINDINGS: Increased mild central pulmonary venous congestion. The lungs are emphysematous, unchanged. Mild increase in bilateral basilar atelectatic pulmonary changes. There is no demonstrated pleural abnormality. Enlarged cardiac silhouette. Normal mediastinum and bee. Normal visualized pulmonary arteries. Atheromatous plaques of the visualized aortic arch and descending thoracic aorta. Diffuse spondylosis of the visualized thoracic spine. Normal visualized ribs, clavicles. Degenerative joint disease. There is no demonstrated abnormality of the visualized soft tissue structures of the upper abdomen. RAD/Chest 1 View (Portable) IMPRESSION: Increased mild central pulmonary venous congestion. Unchanged emphysema. Mild increase in bilateral basilar atelectatic pulmonary changes. Reading Location: [place] [address]
[2025-05-21 02:15] LABS: Prothrombin Time (Protime)PT. 16.0 SECONDS (11.7-14.9)
[2025-05-21 02:16] LABS: Partial Thromboplast Time 45.1 Seconds (24.1-36.2)
--- NOTE | 2025-05-21 02:24 | EKG12_ITS ---
Test Reason : CP Blood Pressure : */* mmHG Vent. Rate : 153 BPM Atrial Rate : 150 BPM P-R Int : 200 ms QRS Dur : 102 ms QT Int : 306 ms P-R-T Axes : -10 68 207 degrees QTcB Int : 488 ms Critical Test Result: High HR Undetermined rhythm Marked ST abnormality, possible inferior subendocardial injury Marked ST abnormality, possible anterolateral subendocardial injury Abnormal ECG Confirmed by Alexandru Luaghlin ([id number]), art editor TORIE MUKHERJEE ([id number]) on 05/22/2025 10:46:34 AM Referred By: Confirmed By: Alexandru Laughlin
[2025-05-21 02:30] LABS: Anion Gap 15 (5-15); BUN 46 mg/dL (4-19); BUN/Creat Ratio 24.7 RATIO (10-20); Calcium,Total 9.2 mg/dL (7.6-11.0); Carbon Dioxide 21.4 mmol/L (21.0-32.0); Chloride 104 mmol/L (98-108); Estimated Creatinine Clearance 26.20 ml/min (50-250); Glucose 115 mg/dL (70-99); Magnesium 2.1 mg/dL (1.5-2.2); Potassium 4.2 mmol/L (3.3-5.1)
[2025-05-21 02:38] LABS: Troponin T High Sensitivity 93 ng/L (<=22)
[2025-05-21] MEDS: Heparin Injection (Vial) 5,000 UNIT/ML VIAL 4000 UNIT IV (02:51)
[2025-05-21] MEDS: HEPARIN/D5w 25,000 UNITS 25,000 UNITS/250 ML IV.SOLN. 7.7 UNITS CONT INF (02:52)
--- OUTSIDE RECORDS SUMMARY | 2025-05-21 02:52 | XMS RPT_ITS | CCD ---
Author Organization [facility] Care Team Providers Care Toll Collector Name Role Phone SIMON MOODY Unavailable Unavailable Gavin Hope Unavailable Unavailable SIMON MOODY Unavailable Unavailable SIMON MOODY Unavailable Unavailable [facility] Unavailable Unavailable Gavin Hope A Unavailable Unavailable SIMON MOODY Unavailable Unavailable [facility] Unavailable Unavailable Gavin Hope A Unavailable Unavailable SIMON, MOODY Unavailable Unavailable SIMON, MOODY E Unavailable Unavailable SIMON, MOODY E Unavailable Unavailable GAVIN HOPE A Unavailable Unavailable Dallas Reed Primary Care Provider Dallas Reed MD Primary Care Provider Denver Elizalde RN Unavailable Dr. Dallas Doherty Primary Care Provider Dr. Dallas Reed Referring Provider Robbi RICHEY, SHELLIE Bishop Attending Provider Dr. Omid Perez Attending Provider Dallas Reed MD Primary Care Provider Denver Elizalde RN Unavailable Dallas Doherty MD Primary Care Provider Fide Goff RN Unavailable Dr. Dallas Doherty Primary Care Provider Dr. Omid Perez Attending Provider Dr. Omid Perez Referring Provider Dr. Dallas Reed Referring Provider Dr. Omid Perez Admit Provider Cebul, Dr. Omid Palomino Other Provider Dr. Dieter Christianson Other Provider Denver MENJIVAR, Fide Durán Unavailable Suyapa Reed, Dr. Haynes Primary Care Provider Chris, Dr. Omid Palomino Attending Provider Dr. Donato Longoria Attending Provider Chris, Dr. Omid Palomino Referring Provider Maxime, Dr. Haynes Primary Care Provider Maxime, Dr. Haynes Referring Provider Chris, Dr. Omid Palomino Attending Provider Chris, Dr. Omid Palomino Referring Provider Maxime LAWTON, Dallas Tadeo Primary Care Provider [facility] TECHNICAL TRAINING SPECIALIST.RIDDLER OPERATOR, Darya M Unavailable [facility], Yessenia Unavailable Christopher MENJIVAR, Adriane Unavailable Unavailable Maxime LAWTON, Dr. Haynes Primary Care Provider Marian LAWTON, Dr. Bermudez Attending Provider Marian LAWTON, Dr. Bermudez Referring Provider Marian LAWTON, Dr. Bermudez Other Provider Maxime LAWTON, Dr. Haynes Referring Provider Isaac LAWTON, Dr. Sullivan Emergency Provider Maxime LAWTON, Dr. Haynes Primary Care Provider Dr. Lara Fonseca MD Attending Provider Isaac LAWTON, Dr. Sullivan Attending Provider Waldo LAWTON, Dr. Chan Attending Provider Fernando LAWTON, Dr. Ng Emergency Provider Christopher MENJIVAR, Adriane Unavailable Unavailable Maxime LAWTON, Dr. Haynes Primary Care Provider Maxime LAWTON, Dr. Haynes Referring Provider Fernando LAWTON, Dr. Ng Attending Provider Real PEREZ, Carine Attending Provider [phone] Real PEREZ, Carine Referring Provider [phone] Waldo LAWTON, Dr. Chan Referring Provider [phone] Waldo LAWTON, Dr. Chan Other Provider [phone] Dallas Reed Primary Care Provider ANA BOBO Attending Unavailable ANA BOBO Referring Unavailable MAXIME, DALLAS Primary Care Unavailable Christopher RN, Adriane Unavailable Unavailable Maxime LAWTON, Dr. Haynes Primary Care Provider Maxime LAWTON, Dr. Haynes Primary Care Provider Waldo LAWTON, Dr. Chan Attending Provider [phone] Maxime LAWTON, Dr. Haynes Referring Provider [facility] MANAGER PROJECT MANAGEMENT-C, Mike Tadeo Attending Provider Maxime LAWTON, Dr. Haynes Primary Care Provider Roof MANAGER PROJECT MANAGEMENT-C, Mike H Referring Provider Dustin Hawk Attending Unavailable Dustin Hawk Referring Unavailable Maxime, Dallas Primary Care Unavailable Maxime, Dallas Referring Unavailable Carine Noble Attending Unavailable Maxime, Dallas Primary Care Unavailable Dustin Hawk Attending Unavailable Dallas Reed Referring Unavailable Maxime, Dallas Primary Care Unavailable Veena Nelson Attending Unavailable Maxime, Dallas Primary Care Unavailable Reed, Dallas Primary Care Unavailable Hernandez King Attending Unavailable Margy Stark Admitting Unavailable Alverto Cooley Consulting Unavailable Maxime, Dallas Primary Care Unavailable Brant Alcantara Attending Unavailable Adekathy Amiheather Consulting Unavailable Hinduja, Alia Consulting Unavailable Marcos, Carine Consulting Unavailable Yoshi Jaky Consulting Unavailable John Mar Consulting Unavailable Nata Alvarez Consulting Unavailable Félix Lawrence Consulting Unavailable Haider Hendrix Consulting Unavailable Jesse Anaya Consulting Unavailable Luciana Guerra Consulting Unavailable Carlos Lemus Consulting Unavailable Roula Polk Consulting Unavailable Vale Muniz Consulting Unavailable Zaghlouleh, Mhd Steve Consulting UnavailSupa Morales Consulting Unavailable Hortensia Oden Consulting Unavailable Manuel Acevedo Consulting Unavailable Kourtney Randolph Consulting Unavailable Diogenes Ashton Consulting Unavailable Margy Stark Consulting Unavailable Robotham, Lara Attending Unavailable Robotham, Lara Referring Unavailable Reed, Dallas Primary Care Unavailable Reed, Dallas Primary Care Unavailable Nate Gray Attending Unavailable Reed, Dallas Referring Unavailable Noble, Carine Attending Unavailable Reed, Dallas Primary Care Unavailable Roof MANAGER PROJECT MANAGEMENT, Mike Tadeo Attending Unavailable Roof MANAGER PROJECT MANAGEMENT, Mike H Referring Unavailable Reed, Dallas Primary Care Unavailable Reed, Dallas Primary Care Unavailable Noble, Carine Referring Unavailable Noble, Carine Attending Unavailable Reed, Dallas Referring Unavailable Roof MANAGER PROJECT MANAGEMENT, Mike Tadeo Attending Unavailable Reed, Dallas Primary Care Unavailable Robotham, Lara Attending Unavailable Reed, Dallas Primary Care Unavailable Reed, Dallas Referring Unavailable Robotham, Lara Attending Unavailable Reed, Dallas Primary Care Unavailable Reed, Dallas Referring Unavailable Donato Longoria Attending Unavailable Reed, Dallas Primary Care Unavailable [place], Dustin Consulting Unavailable Waldo, Dustin Referring Unavailable Waldo, Dustin Attending Unavailable Reed, Dallas Primary Care Unavailable Robotham, Lara Attending Unavailable Robotham, Lara Referring Unavailable Robotham, Lara Consulting Unavailable Reed, Dallas Primary Care Unavailable Robotham, Lara Referring Unavailable Robotham, Lara Attending Unavailable Robotham, Lara Consulting Unavailable Reed, Dallas Primary Care Unavailable Margy Stark Attending Unavailable Reed, Dallas Primary Care Unavailable Margy Stark Admitting Unavailable Alverto Cooley Consulting Unavailable Reed, Dallas Primary Care Unavailable Brant Alcantara Attending Unavailable AdeSusan chavez Consulting Unavailable Hindlulu Alia Consulting Unavailable Marcos Carine Consulting Unavailable Jaky Belle Consulting Unavailable John Mar Consulting Unavailable Nata Alvarez Consulting Unavailable Félix Lawrence Consulting Unavailable Haider Hendrix Consulting Unavailable Jesse Anaya Consulting Unavailable Luciana Guerra Consulting Unavailable Carlos Lemus Consulting Unavailable Roula Polk Consulting Unavailable Ridha, Mohamed Consulting Unavailable Zaghlouleh, Mhd Steve Consulting UnavailSupa Morales Consulting Unavailable Akshat, Hortensia Consulting Unavailable Manuel Acevedo Consulting Unavailable Kourtney Randolph Consulting Unavailable Diogenes Ashton Consulting Unavailable Margy Stark Consulting Unavailable Brant Alcantara Consulting Unavailable Waldo, Dustin Attending Unavailable Maxime, Dallas Primary Care Unavailable Maxime, Dallas Referring Unavailable Dustin Hawk Referring Unavailable Dustin Hawk Attending Unavailable Maxime, Dallas Primary Care Unavailable DARYA BORDEN Referring Unavailable REED, DALLAS Tadeo Primary Care Unavailable DARYA BORDEN Referring Unavailable MAXIME, DALLAS Tadeo Primary Care Unavailable DARYA BORDEN Attending Unavailable MAXIME, DALLAS Tadeo Primary Care Unavailable RAMON LEE Attending Unavailable MAXIME, DALLAS Tadeo Referring Unavailable MAXIME, DALLAS Tadeo Primary Care Unavailable RAMON LEE Attending Unavailable MAIXME, DALLAS Tadeo Referring Unavailable MAXIME, DALLAS Tadeo Primary Care Unavailable FATOU RANDOLPH Admitting Unavailable MAXIME, DALLAS Tadeo Primary Care Unavailable YASMEEN DAWN Attending Unavailable GAVIN GRAY Referring Unavailable RAMON LEE Attending Unavailable MAXIME, DALLAS Tadeo Primary Care Unavailable MAXIME, DALLAS Tadeo Referring Unavailable RAMON LEE Attending Unavailable DALLAS REED Referring Unavailable MAXIME, DALLAS Tadeo Primary Care Unavailable RAMON LEE Attending Unavailable MAXIME, DALLAS Tadeo Referring Unavailable REED, DALLAS Tadeo Primary Care Unavailable MAXIME, DALLAS Tadeo Attending Unavailable MAXIME, DALLAS Tadeo Primary Care Unavailable BRIAN RIVERA Referring Unavailable REED, DALLAS Tadeo Primary Care Unavailable RAMON LEE Attending Unavailable MAXIME, DALLAS Tadeo Primary Care Unavailable REED, DALLAS Tadeo Referring Unavailable RAMON LEE Attending Unavailable MAXIME, DALLAS Tadeo Primary Care Unavailable MAXIME, DALLAS Tadeo Referring Unavailable MAXIME, DALLAS Tadeo Attending Unavailable MAXIME, DALLAS Tadeo Primary Care Unavailable MAXIME, DALLAS Tadeo Primary Care Unavailable ADRIAN WARNER Referring Unavailable DARYA BORDEN Attending Unavailable MAXIME, DALLAS Tadeo Primary Care Unavailable MAXIME, DALLAS Tadeo Primary Care Unavailable REED, DALLAS Tadeo Primary Care Unavailable MAXIME, JOCELIN Attending Unavailable SELF Referring Unavailable REED, JOCELIN Primary Care Unavailable SAIRA, DARYA M Referring Unavailable REED, JOCELIN Primary Care Unavailable REED, JOCELIN Primary Care Unavailable ADRIAN WARNER Attending Unavailable SAIRA, DARYA M Referring Unavailable REED, JOCELIN Primary Care Unavailable SAIRA, DARYA M Referring Unavailable REED, JOCELIN Primary Care Unavailable SAIRA, DARYA M Referring Unavailable REED, JOCELIN Primary Care Unavailable SAIRA, DARYA M Attending Unavailable REED, JOCELIN Primary Care Unavailable RAMON LEE Attending Unavailable REED, JOCELIN Primary Care Unavailable REED, JOCELIN Referring Unavailable SAIRA, DARYA M Attending Unavailable REED, JOCELIN Primary Care Unavailable REED, JOCELIN Primary Care Unavailable REED, JOCELIN Referring Unavailable REED, JOCELIN Attending Unavailable REED, JOCELIN Primary Care Unavailable REED, JOCELIN Referring Unavailable Allergies Allergy Classification Reported Allergen(s) Allergy Type Date of Onset Reaction(s) Facility (20 sources) atorvastatin; Translations: [ATORVASTATIN CALCIUM] Drug Allergy 5 Other [facility] Repository Comment on above: muscle pain (20 sources) cloNIDine; Translations: [CLONIDINE] Drug Allergy 5 Unknown [facility] Repository (20 sources) Hmg-Coa Reductase Inhibitors (Statins); Translations: [[id number] REDUCTASE INHIBITORS] Propensity to adverse reactions (disorder) 6 [facility] Repository (20 sources) lisinopril; Translations: [LISINOPRIL] Drug Allergy 7 Rash [facility] Repository (20 sources) rosuvastatin; Translations: [ROSUVASTATIN CALCIUM] Drug Allergy 5 Other [facility] Repository Comment on above: muscle pain (1 source) atorvastatin Drug Allergy 9 [place], [place] (15 sources) Hmg-Coa Reductase Inhibitors (Statins) Propensity to adverse reactions to drug 9 Other [place], [place] Comment on above: MUSCLE VERY SORE (1 source) rosuvastatin Drug Allergy [address] [facility] [place] (2 sources) Pjcfeea-Aja-Qya Reductase Inhibitor; Translations: [Dvtpcqq-Ahx-Tld Reductase Inhibitor] Allergy to substance 2 Other [facility] Repository (20 sources) NIFEdipine; Translations: [NIFEDIPINE] Drug Allergy 5 Swelling [facility] Work Phone: (4 sources) HMG-CoA reductase inhibitor Propensity to adverse reactions 5 [facility] Medications Current Medications Medication Drug Class(es) Dates Sig (Normalized) Sig (Original) acetaminophen 500 mg oral tablet (1 source) take 1 tablet by mouth every six hours as needed for pain acetaminophen (TYLENOL) 500 MG tablet Take 500 mg by mouth every 6 hours as needed for Pain 0 Active amoxicillin 875 mg oral tablet (1 source) Penicillin-class Antibacterial Start: 02-01-2023 End: 02-08-2023 take 1 tablet by mouth twice daily amoxicillin (AMOXIL) 875 mg tablet Indications: Acute otitis media, right Take 1 tablet by mouth twice daily for 7 days. 14 tablet 0 02/01/2023 02/08/2023 Active Comment on above: Take 1 tablet by wendy twice daily for 7 days. ascorbic acid 500 mg oral capsule (20 sources) Vitamin C Start: 02-14-2020 take 1 capsule by mouth once daily ascorbic acid, vitamin C, 500 mg cap Take 500 mg by mouth once daily. 02/14/2020 Active Start: 02-14-2020 take 4 capsules by m out once daily Ascorbic Acid (Vitamin C) 500 mg capsule Active 2000 mg PO DAILY February 14, 2020 11:07am Start: 02-14-2020 take 2000 mg by mouth once logan ly Ascorbic Acid (Vitamin C) Active 2000 MG PO DAILY February 14, 2020 11:07am Start: 02-14-2020 take 4000 mg by mouth once logan ly Ascorbic Acid (Vitamin C) Active 4000 MG PO DAILY February 14, 2020 11:07am Start: 05-17-2019 End: 02-14-2020 take 2 capsules by mouth once daily Ascorbic Acid (Vitamin C) 500 mg capsule Active 1000 mg PO DAILY 0 February 14, 2020 11:07am supplement Start: 05-17-2019 End: 02-14-2020 take 1000 mg by mouth once daily Ascorbic Acid (Vitami n C) Discontinued 1000 MG PO DAILY May 17, 2019 12:00am February 14, 2020 11:08am End: 08-10-2023 take 1 tablet by mouth once daily Ascorbic Acid 1,000 mg tablet Take 1,000 mg by mouth once daily. 08/10/2023 Discontinued (Discontinued by Patient) take 1 tablet by wendy th once daily vitamin C (ASCORBIC ACID) 500 MG tablet Take 500 mg by mouth daily 0 Active Comment on above: Take 1,000 mg by wendy th once daily. aspirin 81 mg chewable tablet (20 sources) Platelet Aggregation Inhibitor, Nonsteroidal Anti-inflammatory Drug Start: 06-07-2024 take 1 tablet by mouth once daily aspirin 81 mg chewable tablet Indications: TIA (transient ischemic attack) Take 1 tablet by mouth once daily. 06/07/2024 Active Start: 05-24-2024 End: 04-18-2025 take 1 drop(s) by mouth at breakfast Aspirin 81 mg Tablet,Chewable Discontinued 81 mg PO WITH BREAKFAST 30 30 May 24, 2024 12:00am April 18, 2025 4:29pm Discontinue if platelet count drops less than 50,000 or hemoglobin less than 8 g% Start: 05-13-2022 End: 05-23-2024 take 1 tablet by mouth every other day as needed Aspirin (Adult Aspirin Regimen) 81 mg tablet,delayed release (DR/EC) Discontinued 81 mg PO EVERY OTHER DAY as needed for heart health May 13, 2022 9:07am May 23, 2024 7:58pm Start: 01-06-2021 End: 05-13-2022 take 1 tablet by mouth once daily Aspirin (Adult Aspirin Regimen) 81 mg tablet,delayed release (DR/EC) Discontinued 81 mg PO daily January 16, 2021 11:29am May 13, 2022 9:07am heart health Start: 09-11-2015 End: 01-08-2018 take 1 tablet by mouth twice daily at mealtime Aspirin 325 MG tablet Discontinued 325 mg PO TWICE DAILY WITH MEALS 60 0 September 11, 2015 1:00am January 08, 2018 2:59pm bempedoic acid 180 mg oral tablet (20 sources) Start: 06-07-2024 End: 09-07-2024 take 1 tablet by mouth once daily bempedoic acid (NEXLETOL) 180 mg tablet Indications: TIA (transient ischemic attack) , Mixed hyperlipidemia Take 1 tablet (180 mg) by mouth once daily. 90 tablet 3 09/07/2024 Active carvedilol 6.25 mg oral tablet (20 sources) alpha-Adrenerg ic Adrienne, beta-Adrenergi c Adrienne Start: 05-18-2025 take 1 tablet by mouth twice daily at mealtime carvedilol (COREG) 6.25 mg tablet Take 1 tablet by mouth two times a day with meals. 180 tablet 3 05/18/2025 Active Start: 05-14-2020 End: 05-18-2025 take 1 tablet by mouth twice daily at mealtime carvedilol (COREG) 12.5 mg tablet Indications: Essential hypertension, benign Take 1 tablet by mouth two times a day with meals. 180 tablet 3 02/16/2025 05/18/2025 Discontinued Start: 07-24-2019 End: 05-14-2020 take 2 tablets by mouth twice daily Carvedilol 12.5 mg tablet Discontinued 25 mg PO TWICE A DAY July 24, 2019 4:22pm May 14, 2020 9:39am Start: 07-24-2019 End: 05-14-2020 take 25 mg by mouth twice daily Carvedilol Discontinue d 25 MG PO TWICE A DAY July 24, 2019 4:22pm May 14, 2020 9:39am Start: 05-17-2019 End: 07-24-2019 take 1 tablet by mouth twice daily Carvedilol 12.5 mg tablet Discontinued 12.5 mg PO TWICE A DAY May 17, 2019 12:00am July 24, 2019 4:22pm Comment on above: Take 1 tablet by [facility] twice daily with meals. cholecalciferol 0.125 mg oral tablet (20 sources) Vitamin D Start: 01-13-20 take 1 tablet by mouth once daily Cholecalciferol (Vitamin D3) (Vitamin D3) 125 mcg (5,000 unit) tablet Active 125 ug PO DAILY January 12, 2025 12:00am Start: 05-18-2019 End: 01-12-2025 take 1 capsule by mouth once daily Cholecalciferol (Vitamin D3) 2,000 unit capsule Discontinued 2000 U PO DAILY May 18, 2019 12:00am January 12, 2025 11:01am supplement take 1 capsule by [facility] once daily Cholecalciferol, Vitamin D3, 25 mcg (1,000 unit) cap Take 5,000 Units by mouth once daily. Active Cholecalciferol, Vitamin D3, (VITAMIN D) 1,000 unit cap Take 5,000 Units by mouth once daily. 0 Active Comment on above: Take 5,000 Units by mouth once daily. Coenzyme Q10 (COQ10 PO) (1 source) Coenzyme Q10 (CO Q10 PO) Take by mouth 0 Active doxazosin 8 mg oral tablet (20 sources) alpha-Adrenergic Adrienne Start: 07-15-2022 End: 02-15-2025 take 1 tablet by mouth once daily at bedtime doxazosin (CARDURA) 8 mg tablet Take 1 tablet by mouth daily at bedtime. 90 tablet 3 02/16/2025 Active Start: 03-27-2021 take 3 tablets by mo uth once daily at bedtime doxazosin (CARDURA) 4 mg tablet Indications: Essential hypertension, benign Take 3 tablets by mouth daily at bedtime. 270 tablet 3 03/27/2021 Active Start: 05-18-2019 End: 05-13-2022 take 2 tablets by mouth at bedtime Doxazosin 4 mg tablet Discontinued 8 mg PO AT BEDTIME May 18, 2019 10:23am May 13, 2022 9:06am heart Start: 05-18-2019 End: 05-13-2022 take 8 mg by mouth at bedtime Doxazosin Discontinued 8 MG PO AT BEDTIME May 18, 2019 10:23am May 13, 2022 9:06am Start: 01-08-2018 End: 05-18-2019 take 1 tablet by mouth at bedtime Doxazosin 4 mg tablet Discontinued 4 mg PO AT BEDTIME January 08, 2018 2:56pm May 18, 2019 10:26am Start: 07-26-2015 End: 01-08-2018 take 2 tablets by mouth at bedtime Doxazosin 4 MG tablet Discontinued 8 mg PO AT BEDTIME July 26, 2015 1:00am January 08, 2018 2:59pm Start: 07-26-2015 End: 01-08-2018 take 8 mg by mouth at bedtime Doxazosin Discontinued 8 MG PO AT BEDTIME July 26, 2015 1:00am January 08, 2018 2:59pm Comment on above: Take 3 tablets by mo uth daily at bedtime. Take 1 tablet by wendy daily at bedtime. ezetimibe 10 mg oral tablet (20 sources) Dietary Cholesterol Absorption Inhibitor Start: 09-08-2023 End: 02-15-2025 take 1 tablet by mouth once daily ezetimibe (ZETIA) 10 mg tablet Take 1 tablet by mouth once daily. 90 tablet 3 02/16/2025 Active Comment on above: Take 1 tablet by wendy th once daily. ferrous sulfate 325 mg oral tablet (20 sources) Start: 01-12-2025 take 1 tablet by mouth once daily Ferrous Sulfate (Feosol) 325 mg (65 mg iron) tablet Active 325 mg PO DAILY January 12, 2025 12:00am End: 09-07-2024 take 1 tablet by mouth once daily ferrous sulfate (FEOSOL) 325 mg (65 mg iron) tablet Take 325 mg by mouth once daily. 09/07/2024 Discontinued (Course of therapy completed) furosemide 40 mg oral tablet (20 sources) Loop Diuretic Start: 05-10-2025 take 1 tablet by mouth once daily as needed Furosemide (Lasix) 40 mg tablet Active 40 mg PO DAILY as needed for SOB 14 0 May 10, 2025 12:00am 40mg PO daily x 3 days followed by PRN Start: 07-11-2024 End: 02-15-2025 take 1 tablet by mouth once daily furosemide (LASIX) 20 mg tablet Indications: Chronic diastolic CHF (congestive heart failure) (HCC) Take 1 tablet by mouth once daily. 90 tablet 3 02/16/2025 Active Start: 05-17-2019 End: 05-23-2024 take 1 tablet by mouth once daily Furosemide 20 mg tablet Discontinued 20 mg PO DAILY May 17, 2019 12:00am May 23, 2024 8:00pm heart Start: 10-13-2016 End: 05-17-2019 take 1 tablet by mouth once daily Furosemide 40 MG tablet Discontinued 40 mg PO DAILY 30 0 October 13, 2016 1:00am May 17, 2019 1:25pm take 1 tablet by wendy th twice daily furosemide (LASIX) 20 MG tablet Take 20 mg by mouth 2 times daily 0 Active Comment on above: Take 1 tablet by wendy th once daily. Garlic (20 sources) Non-Standardized Food Allergenic Extract Start: 05-18-2019 take 1000 mg by mouth once daily Garlic Active 1000 MG PO DAILY May 18, 2019 10:24am Start: 05-18-2019 End: 05-24-2024 take 1 capsule by mouth once daily Garlic 1,000 mg capsule Discontinued 1000 mg PO DAILY May 18, 2019 12:00am May 24, 2024 4:42pm supplement Start: 05-18-2019 End: 05-24-2024 take 1 capsule by mouth once daily Garlic 1,000 mg capsule Discontinued 1000 mg PO DAILY May 18, 2019 12:00am May 24, 2024 4:42pm Start: 05-18-2019 take 1000 mg by mout h once daily Garlic Active 1000 MG PO DAILY May 17, 2019 11:00pm Start: 05-18-2019 take 1000 mg by mout h once daily Garlic Active 1000 MG PO DAILY May 18, 2019 12:00am End: 06-07-2024 take 1 capsule by mouth once daily Garlic 1,000 mg cap Take 1 capsule by mouth once daily. 06/07/2024 Discontinued take 1 capsule by mo uth once daily Garlic 1,000 mg cap Take 1 capsule by mouth once daily. Active take 1 capsule by mo uth once daily Garlic 1,000 mg cap Take 1 capsule by mouth once daily. 0 Active GARLIC PO Take b y mouth 0 Active Comment on above: Take 1 capsule by mo uth once daily. glucosamine/chondr rich A sod (OSTEO BI-FLEX ORAL) (20 sources) take 2 tablets by mouth once daily glucosamine/chondr rich A sod (OSTEO BI-FLEX ORAL) Take 2 tablets by mouth once daily. Suspended take 2 tablets by mouth once logan ly glucosamine/chondr rich A sod (OSTEO BI-FLEX ORAL) Take 2 tablets by mouth once daily. Active take 2 tablets by mouth once logan ly glucosamine/chondr rich A sod (OSTEO BI-FLEX ORAL) Take 2 tablets by mouth once daily. 0 Active Comment on above: Take 2 tablets by mo uth once daily. hydrALAZINE hydrochloride 100 mg oral tablet (20 sources) Arteriolar Vasodilator Start: 4 End: take 1 tablet by mouth three times daily hydrALAZINE (APRESOLINE) 100 mg tablet Indications: Essential hypertension Take 1 tablet by mouth three times a day. 270 tablet 3 12/11/2024 Active Start: 03-04-2023 take 1 tablet by wendy three times daily hydrALAZINE (APRESOLINE) 100 mg tablet Indications: Primary hypertension Take 1 tablet by mouth three times daily. 90 tablet 5 03/04/2023 Active Start: 07-15-2022 End: 02-04-2023 take 1 tablet by mouth twice daily hydrALAZINE (APRESOLINE) 100 mg tablet Take 1 tablet by mouth twice daily. 07/15/2022 02/04/2023 Discontinued (Non-Compliance) Start: 11-12-2021 End: 02-23-2023 take 1 tablet by mouth once daily Hydralazine 100 mg tablet Discontinued 100 mg PO DAILY November 12, 2021 5:18pm February 23, 2023 9:38am BP Start: 03-27-2021 take 1 tablet by wendy th four times daily hydrALAZINE (APRESOLINE) 100 mg tablet Indications: Essential hypertension, benign Take 1 tablet by mouth four times daily. 360 tablet 3 03/27/2021 Active Start: 02-14-2020 End: 11-12-2021 take 1 tablet by mouth every six hours Hydralazine 100 mg tablet Discontinued 100 mg PO EVERY 6 HOURS February 14, 2020 11:06am November 12, 2021 5:19pm BP Start: 05-18-2019 End: 02-14-2020 take 1 tablet by mouth three times daily Hydralazine 100 mg tablet Discontinued 100 mg PO THREE TIMES A DAY 270 3 May 31, 2019 2:54pm February 14, 2020 11:08am Start: 05-18-2019 End: 05-18-2019 Hydralazine 50 mg tablet Discontinued 75 mg PO THREE TIMES A DAY May 18, 2019 12:00am May 18, 2019 11:15am Start: 05-18-2019 End: 05-18-2019 take 75 mg by mouth three times daily Hydralazine Discontinued 75 MG PO THREE TIMES A DAY May 18, 2019 12:00am May 18, 2019 11:15am End: 12-04-2024 take 1 tablet by mouth three times daily hydrALAZINE (APRESOLINE) 50 mg tablet Take 50 mg by mouth three times a day. 12/04/2024 Discontinued (Erroneous entry) take 1 tablet by wendy th twice daily hydrALAZINE (APRESOLINE) 100 MG tablet Take 100 mg by mouth 2 times daily 0 Active Comment on above: Take 1 tablet by wendy th four times daily. Take 1 tablet by [facility] twice daily. Take 1 tablet by [facility] three times daily. Take 1 tablet by [facility] three times a day. levOCARNitine 500 mg oral capsule (20 sources) Carnitine Analog take 1 capsule by mouth once daily levOCARNitine (L-CARNITINE) 500 mg capsule Take 500 mg by mouth once daily. Active levothyroxine sodium 0.025 mg oral tablet (20 sources) l-Thyroxine Start: 09-08-20 End: 03-13-20 take 1 tablet by mouth once daily before breakfast levothyroxine (SYNTHROID) 25 mcg tablet Take 1 tablet by mouth daily before breakfast. Except one day a week take an extra tablet 102 tablet 3 03/13/2025 Active losartan potassium 100 mg oral tablet (20 sources) Angiotensin 2 Receptor Adrienne Start: 05-17-20 End: 03-28-20 take 1 tablet by mouth once daily losartan (COZAAR) 100 mg tablet Indications: Essential hypertension Take 1 tablet by mouth once daily. 90 tablet 1 03/28/2025 Active Comment on above: Take 1 tablet by [facility] once daily. Magnesium (20 sources) Start: 05-17-20 take 400 mg by mouth once daily Magnesium Active 400 MG PO DAILY May 17, 2019 1:27pm Start: 05-17-2019 End: 05-23-2024 take 2 tablets by mouth once daily Magnesium 200 mg tablet Discontinued 400 mg PO DAILY May 17, 2019 12:00am May 23, 2024 7:59pm supplement Start: 05-17-2019 End: 05-23-2024 take 2 tablets by mouth once daily Magnesium 200 mg tablet Discontinued 400 mg PO DAILY May 17, 2019 12:00am May 23, 2024 7:59pm Start: 05-17-2019 take 400 mg by mouth once jessi y Magnesium Active 400 MG PO DAILY May 16, 2019 11:00pm Start: 05-17-2019 take 400 mg by mouth once jessi y Magnesium Active 400 MG PO DAILY May 17, 2019 12:00am take 400 mg by mouth once daily MAGNESIUM PO Take 400 mg by mouth daily. Active take 2 tablets by [facility] once daily Magnesium 200 mg tab Take 400 mg by mouth once daily. Suspended take 2 tablets by [facility] once daily Magnesium 200 mg tab Take 400 mg by mouth once daily. Active take 2 tablets by mo uth once daily Magnesium 200 mg tab Take 400 mg by mouth once daily. 0 Active Magnesium 500 MG TABS Take by mouth 0 Active Comment on above: Take 400 mg by mouth once daily. magnesium oxide 400 mg oral tablet (8 sources) Start: 05-23-2024 take 1 tablet by mouth once daily Magnesium Oxide 400 mg (241.3 mg magnesium) tablet Active 400 mg PO DAILY May 23, 2024 12:00am supplement Misc Natural Products (GLUCOSAMINE CHOND COMPLEX/MSM PO) (1 source) Misc Natural Products (GLUCOSAMINE CHOND COMPLEX/MSM PO) Take by mouth 0 Active Misc Natural Products (GRAPE SEED COMPLEX PO) (1 source) Misc Natural Products (GRAPE SEED COMPLEX PO) Take by mouth 0 Active Multiple Vitamin (MULTI-VITAMIN DAILY PO) (1 source) Multiple Vitamin (MULTI-VITAMIN DAILY PO) Take by mouth 0 Active multivit-minerals/FA /lycopene (ONE-A-DAY MEN'S ORAL) (20 sources) take 1 tablet by mouth once daily multivit-minerals/FA /lycopene (ONE-A-DAY MEN'S ORAL) Take 1 tablet by mouth once daily. Suspended take 1 tablet by wendy [facility] once daily multivit-minerals/FA/lycopene (ONE-A-DAY MEN'S ORAL) Take 1 tablet by mouth once daily. Active take 1 tablet by [facility]y [facility] once daily multivit-minerals/FA/lycopene (ONE-A-DAY MEN'S ORAL) Take 1 tablet by mouth once daily. 0 Active Comment on above: Take 1 tablet by [facility] once daily. Multivitamin preparation (7 sources) Start: 05-18-2019 take 1 tablet by mouth once daily Multivitamin Active 1 TABLET PO DAILY May 18, 2019 10:25am Start: 05-18-2019 take 1 tablet by wendy [facility] once daily Multivitamin Active 1 TABLET PO DAILY May 17, 2019 11:00pm Start: 05-18-2019 take 1 tablet by wendy [facility] once daily Multivitamin Active 1 TABLET PO DAILY May 18, 2019 12:00am Multivitamin tablet (8 sources) Start: 05-18-2019 Multivitamin t ablet Active 1 {tbl} PO DAILY May 18, 2019 12:00am supplement Start: 05-18-2019 Multivitamin t ablet Active 1 {tbl} PO DAILY May 18, 2019 12:00am mupirocin 0.02 mg/mg topical ointment (2 sources) RNA Synthetase Inhibitor Antibacterial Start: 11-07-2024 End: 11-17-2024 mupirocin (BACTROBAN) 2 % ointment Indications: Abrasion of head, initial encounter Apply to affected area three times a day for 10 days. 22 g 11/07/2024 11/17/2024 Active 24 hr NIFEdipine 60 mg extended release oral tablet (12 sources) Dihydropyridine Calcium Channel Adrienne Start: 01-12-2025 take 1 tablet by mouth once daily Nifedipine 60 mg tablet extended release Active 60 mg PO DAILY January 12, 2025 12:00am Start: 12-02-2024 End: 12-02-2024 take 1 tablet by mouth once daily NIFEdipine ER (PROCARDIA XL) 60 mg 24 hr tablet Take 1 tablet by mouth once daily. Patient should start on December 02, 2024. 90 tablet 12/02/2024 12/02/2024 Discontinued (Side Effects) [place]-3 Fatty Acids (FISH OI L PO) (1 source) [place]-3 Fatty Ac ids (FISH OIL PO) Take by mouth 0 Active predniSONE 10 mg oral tablet (18 sources) Start: 03-11-2024 End: 03-20-2024 predniSONE (DELTASONE) 10 mg tablet Take 4 tabs daily for 3 days, then 2 tabs daily for 3 days, then 1 tab daily for 3 days with food. 21 tablet 0 03/11/2024 03/20/2024 Active Start: 02-09-2024 End: 02-14-2024 take 2 tablets by mouth once daily predniSONE (DELTASONE) 20 mg tablet Take 2 tablets by mouth once daily for 5 days. 10 tablet 0 02/09/2024 02/14/2024 Active Start: 02-19-2017 End: 01-08-2018 take 1 tablet by mouth twice daily at mealtime Prednisone 20 MG tablet Discontinued 20 mg PO TWICE DAILY WITH MEALS 10 0 February 19, 2017 12:00am January 08, 2018 2:59pm Turmeric extract (20 sources) take 1 capsule by mo uth once daily TURMERIC ORAL Take 1 capsule by mouth once daily. Active TURMERIC ORAL Ta ke by mouth. Suspended TURMERIC ORAL Ta ke by mouth. Active TURMERIC ORAL Ta ke by mouth. 0 Active ubidecarenone/vitamin E mixe d (COQ10 SG 100 ORAL) (20 sources) take 1 capsule by mouth once daily ubidecarenone/vitamin E mixed (COQ10 SG 100 ORAL) Take 1 capsule by mouth once daily. Active ubidecarenone/vi tamin E mixed (COQ10 SG 100 ORAL) Take by mouth. Suspended ubidecarenone/vi tamin E mixed (COQ10 SG 100 ORAL) Take by mouth. Active ubidecarenone/vi tamin E mixed (COQ10 SG 100 ORAL) Take by mouth. 0 Active Vitamin B 12 (1 source) Vitamin B12 Cyanocobalamin ( VITAMIN B12 PO) Take by mouth 0 Active VITAMIN E PO (1 source) VITAMIN E PO [facility] e by mouth 0 Active Completed/Discontinued Medications Medication Drug Class(es) Dates Sig (Normalized) Sig (Original) acetaminophen 325 mg / HYDROcodone bitartrate 5 mg oral tablet (20 sources) Opioid Agonist Start: 06-06-2019 End: 06-10-2019 Hydrocodone-Acetami nophen 1 TABLET tablet Discontinued 1 {tbl} PO EVERY 6 HOURS NEEDED as needed for Pain 12 3 0 June 06, 2019 June 08, 2019 12:00am June 10, 2019 12:10am Pain of right hip Pain in right hip Start: 06-06-2019 End: 06-10-2019 take 1 tablet by mouth every six hours as needed Hydrocodone-Acetaminophen Discontinued 1 TABLET PO EVERY 6 HOURS NEEDED 12 3 June 06, 2019 June 10, 2019 12:10am Start: 09-11-2015 End: 01-08-2018 Hydrocodone-Acetaminophen 1 TABLET tablet Discontinued 1 - 2 {tbl} PO EVERY 4 HOURS NEEDED as needed for Pain 20 0 February 19, 2017 12:00am January 08, 2018 2:59pm Start: 09-11-2015 End: 01-08-2018 take 1 tablet by mouth every four hours as needed Hydrocodone-Acetaminophen Discontinued 1 - 2 TABLET PO EVERY 4 HOURS NEEDED February 19, 2017 12:00am January 08, 2018 2:59pm End: 07-19-2019 HYDROcodone-Acetaminophen (V ICODIN PO) Take by mouth 0 07/19/2019 Discontinued (LIST CLEANUP) acetaminophen 325 mg / oxyCODONE hydrochloride 5 mg oral tablet (15 sources) Opioid Agonist Start: 06-15-2019 End: 06-19-2019 Oxycodone-Acetaminophen 1 TABLET tablet Discontinued 1 {tbl} PO EVERY 6 HOURS NEEDED as needed for Pain 12 3 0 June 15, 2019 June 17, 2019 12:00am June 19, 2019 12:09am Pain of right hip Pain in right hip Start: 06-15-2019 End: 06-19-2019 take 1 tablet by mouth every six hours as needed Oxycodone-Acetaminophen Discontinued 1 TABLET PO EVERY 6 HOURS NEEDED 12 3 June 15, 2019 June 19, 2019 12:09am amLODIPine 5 mg oral tablet (20 sources) Dihydropyridine Calcium Channel Adrienne Start: 05-17-2019 End: 05-18-2019 take 1 tablet by mouth once daily Amlodipine 5 mg tablet Discontinued 5 mg PO DAILY May 17, 2019 12:00am May 18, 2019 11:12am Start: 01-08-2018 End: 05-17-2019 take 1 tablet by mouth once daily Amlodipine 10 mg tablet Discontinued 10 mg PO DAILY January 08, 2018 2:56pm May 17, 2019 1:34pm Start: 10-13-2016 End: 01-08-2018 take 5 mg by mouth once daily Amlodipine 10 MG tablet Discontinued 5 mg PO DAILY 1 0 October 13, 2016 5:34pm January 08, 2018 2:59pm Start: 10-13-2016 End: 01-08-2018 take 5 mg by mouth once daily Amlodipine Discontinued 5 MG PO DAILY October 13, 2016 5:34pm January 08, 2018 2:59pm Start: 07-26-2015 End: 10-13-2016 take 1 tablet by mouth once daily Amlodipine 10 MG tablet Discontinued 10 mg PO DAILY July 26, 2015 1:00am October 13, 2016 5:34pm amoxicillin 875 mg / clavulanate 125 mg oral tablet (7 sources) Penicillin-class Antibacterial Start: 01-12-2025 End: 04-18-2025 take 1 tablet by mouth every twelve hours Amoxicillin-Pot Clavulanate 875-125 mg tablet Discontinued 875 mg PO Q12H 20 0 January 12, 2025 12:00am April 18, 2025 4:29pm biotin 5 mg oral capsule (16 sources) Start: 07-24-2019 End: 11-12-2021 take 1 capsule by mouth once daily Biotin 5 mg capsule Discontinued 5 mg PO DAILY July 24, 2019 1:00am November 12, 2021 5:00pm supplement Biotin 5000 MCG TABS Take by mouth 0 Active Boswellia Roland Xt (Bulk) (7 sources) Start: 07-26-2015 End: 05-17-2019 Boswellia Roland Xt (Bulk) Discontinued 10 GM MC DAILY July 26, 2015 9:26am May 17, 2019 1:34pm Start: 07-26-2015 End: 05-17-2019 Boswellia Roland Xt (Bulk) Discontinued 10 GM MC DAILY July 26, 2015 12:00am May 17, 2019 12:34pm Start: 07-26-2015 End: 05-17-2019 Boswellia Roland Xt (Bulk) Discontinued 10 GM MC DAILY July 26, 2015 1:00am May 17, 2019 1:34pm Boswellia Roland Xt (Bulk) 10 GM powder (8 sources) Start: 07-26-2015 End: 05-17-2019 Boswellia Roland Xt (Bulk) 10 GM powder Discontinued 10 g MC DAILY July 26, 2015 1:00am May 17, 2019 1:34pm budesonide 3 mg delayed release oral capsule (20 sources) Corticosteroid Start: 02-23-2023 End: 05-26-2023 take 3 capsules by mouth once daily Budesonide 3 mg capsule,delayed,ext end.release Discontinued 9 mg PO DAILY February 23, 2023 12:00am May 26, 2023 2:13pm BOWELS Start: 02-23-2023 End: 05-26-2023 take 9 mg by mouth once daily Budesonide Discontinued 9 MG PO DAILY February 23, 2023 12:00am May 26, 2023 2:13pm Start: 01-18-2023 End: 01-10-2024 take 1 capsule by mouth every twenty-four hours budesonide, enteric coated (ENTOCORT EC) 3 mg 24 hr capsule Take 3 capsules by mouth once daily. 90 capsule 3 01/18/2023 01/10/2024 Discontinued (Discontinued by Patient) Comment on above: Take 3 capsules by m outh once daily. cefTRIAXone (Rocephin) 1,000 mg in sodium chloride 0.9 % 50 mL IVPB Mini-Bag Plus (2 sources) Start: 03-16-2025 End: 03-16-2025 1,000 mg, IntraVENous, at 100 mL/hr, Administer over 30 Minutes, Once, On Wed03/16/25 at 1015, For 1 dose, Preprocedure, Mini-Bag Plus bag, Suspected Indication (Select all that apply): Surgical Prophylaxis cholecalciferol 1000 unt / folic acid 1 mg / omega-3 acid ethyl esters (mcfp) 500 mg / phytosterols 200 mg / pyridoxine hydrochloride 12.5 mg / vitamin b12 0.5 mg oral capsule (20 sources) Vitamin B12, Vitamin D Start: 07-26-2015 End: 01-10-2024 [id number] 500-1,000-500 mg-unit-mcg cap Take by mouth. 07/26/2015 01/10/2024 Discontinued (Discontinued by Patient) Start: 07-26-2015 End: 05-23-2024 take 1 capsule by mouth once daily [id number] 1 EACH ca psule Discontinued 1 NMA PO DAILY July 26, 2015 1:00am May 23, 2024 8:01pm supplement On Hold: Resume on 04/21/23. Start: 07-26-2015 [id number] Active 1 EACH PO DAILY July 26, 2015 1:00am Comment on above: Take by mouth. chondroitin sulfates 200 mg / glucosamine hydrochloride 250 mg oral tablet (15 sources) Start: 019 End: Glucosamine-Chondroi tin (Osteo Bi-Flex) 250-200 mg tablet Discontinued 1 {tbl} PO DAILY May 17, 2019 12:00am July 07, 2024 2:19pm supplement colestipol hydrochloride 1000 mg oral tablet (20 sources) Bile Acid Sequestrant Start: 022 End: 023 take 1 tablet by mouth twice daily for hyperlipidemia colestipol (COLESTID) 1 gram tablet Indications: Other hyperlipidemia Take 1 tablet by mouth twice daily. For cholesterol. 180 tablet 3 02/04/2023 04/16/2023 Discontinued (Discontinued by Patient) Start: 02-14-2020 End: 11-12-2021 Colestipol (Colestid) 1 gram tablet Discontinued 1 g PO TWICE A DAY February 14, 2020 11:06am November 12, 2021 4:59pm cholesterol Start: 07-24-2019 End: 02-14-2020 Colestipol (Colestid) 1 gram tablet Discontinued 1 g PO ONCE July 24, 2019 1:00am February 14, 2020 11:08am Start: 05-17-2019 End: 05-18-2019 Colestipol 1 gram tablet Dis continued 1 g PO TWICE A DAY May 17, 2019 12:00am May 18, 2019 10:25am Comment on above: Take 1 tablet by [facility] twice daily. For cholesterol. COMPOUNDED PRESCRIPTION (20 sources) End: 01-10-20 24 take 1 capsule by mouth once daily COMPOUNDED PRESCRIPTION Take 1 capsule by mouth once daily. [place] Q Plus 01/10/2024 Discontinued (Discontinued by Patient) End: 01-10-2024 take 1 capsule by mouth once daily COMPOUNDED PRESCRIPTION Take 1 capsule by mouth once daily. [place] Q Plus 0 01/10/2024 Discontinued (Discontinued by Patient) take 1 capsule by [facility] once daily COMPOUNDED PRESCRIPTION Take 1 capsule by mouth once daily. [place] Q Plus 0 Active Comment on above: Take 1 capsule by [facility] once daily. [place] Q Plus diazePAM 2 mg oral tablet (15 sources) Benzodiazepine Start: 7 End: 8 take 1 tablet by mouth three times daily as needed Diazepam 2 MG tablet Discontinued 2 mg PO 3 TIMES DAILY NEEDED as needed for Vertigo 15 0 February 19, 2017 12:00am January 08, 2018 2:59pm enteric contrast (will be provided with radiology test) (2 sources) Start: End: enteric contrast (will be provided with radiology test) Indications: Left lower quadrant abdominal pain For CT ABD/PEL W IVCON Routine order Administer, As Directed One Time Only, via Oral, Rectal, both Oral and Rectal, Enteric Tube, Stoma or Indwelling Catheter, Enteric Contrast as designated per enteric contrast guidelines 1 Each 11/27/2024 11/28/2024 Start: 11-27-2024 End: 11-28-2024 enteric contrast (will be pr ovided with radiology test) Indications: Left lower quadrant abdominal pain For CT ABD/PEL W IVCON Routine order Administer, As Directed One Time Only, via Oral, Rectal, both Oral and Rectal, Enteric Tube, Stoma or Indwelling Catheter, Enteric Contrast as designated per enteric contrast guidelines 1 Each 11/27/2024 11/28/2024 Active 2 ml fentaNYL 0.05 mg/ml injection (3 sources) Opioid Agonist Start: 03-16-2025 End: 03-16-2025 IntraVENous, As needed, Starting on Wed03/16/25 at 1208, Intraprocedure Start: 07-19-2019 End: 07-19-2019 fentaNYL (SUBLIMAZE) injecti on Fish,Bora,Flax Oils-Om3,6,9no1 (7 sources) Start: 07-26-2015 End: 05-17-2019 take 1200 mg by mouth once daily Fish,Bora,Flax Oils-Om3,6,9no1 Discontinued 1200 MG PO DAILY July 26, 2015 9:26am May 17, 2019 1:34pm Start: 07-26-2015 End: 05-17-2019 take 1200 mg by mouth once daily Fish,Bora,Flax Oils-Om3,6,9no1 Discontinued 1200 MG PO DAILY July 26, 2015 12:00am May 17, 2019 12:34pm Start: 07-26-2015 End: 05-17-2019 take 1200 mg by mouth once daily Fish,Bora,Flax Oils-Om3,6,9no1 Discontinued 1200 MG PO DAILY July 26, 2015 1:00am May 17, 2019 1:34pm Fish,Bora,Flax Oils-Om3,6,9no1 1,200 MG capsule (8 sources) Start: 07-26-2015 End: 05-17-2019 take 1 capsule by mouth once daily Fish,Bora,Flax Oils-Om3,6,9no1 1,200 MG capsule Discontinued 1200 mg PO DAILY July 26, 2015 1:00am May 17, 2019 1:34pm fluticasone propionate 0.05 mg/actuat metered dose nasal spray (20 sources) Corticosteroid Start: 01-12-2025 End: 05-10-2025 Fluticasone Propionate 50 mcg/actuation spray,suspension Discontinued 1 NMA INTRANASAL AT BEDTIME as needed for nasal congestion January 12, 2025 12:00am May 10, 2025 8:11am Start: 09-07-2024 take 1 spray(s) nasa l route once daily at bedtime fluticasone (FLONASE) 50 mcg/actuation nasal spray Use 1 [place] in each nostril daily at bedtime. 1 Each 2 09/07/2024 Active gabapentin 300 mg oral capsule (15 sources) Anti-epileptic Agent Start: 01-08-2018 End: 05-17-2019 take 1 capsule by mouth twice daily Gabapentin 300 mg capsule Discontinued 300 mg PO TWICE A DAY January 08, 2018 12:00am May 17, 2019 1:35pm grape seed extract 50 mg capsule (20 sources) Start: 05-18-2019 End: 11-12-2021 take 1 capsule by mouth once daily grape seed extract 50 mg capsule Discontinued 100 MG PO DAILY May 18, 2019 10:25am November 12, 2021 5:00pm Start: 05-18-2019 End: 11-12-2021 take 1 capsule by mouth once daily Grape Seed Extract (Grape Seed) 50 mg capsule Discontinued 100 mg PO DAILY May 18, 2019 12:00am November 12, 2021 5:00pm supplement Start: 05-18-2019 End: 11-12-2021 take 1 capsule by mouth once daily Grape Seed Extract (Grape Seed) 50 mg capsule Discontinued 100 mg PO DAILY May 18, 2019 12:00am November 12, 2021 5:00pm Start: 05-18-2019 End: 11-12-2021 take 1 capsule by mouth once daily grape seed extract 50 mg capsule Discontinued 100 MG PO DAILY May 17, 2019 11:00pm November 12, 2021 4:00pm Start: 05-18-2019 End: 11-12-2021 take 1 capsule by mouth once daily grape seed extract 50 mg capsule Discontinued 100 MG PO DAILY May 18, 2019 12:00am November 12, 2021 5:00pm Start: 07-26-2015 End: 05-17-2019 take 25 mg by mouth once daily Grape Seed Extract Disc ontinued 25 MG PO DAILY July 26, 2015 9:26am May 17, 2019 1:35pm Start: 07-26-2015 End: 05-17-2019 take 1 capsule by mouth once daily Grape Seed Extract 25 MG capsule Discontinued 25 mg PO DAILY July 26, 2015 1:00am May 17, 2019 1:35pm Start: 07-26-2015 End: 05-17-2019 take 25 mg by mouth once daily Grape Seed Extract Disc ontinued 25 MG PO DAILY July 26, 2015 12:00am May 17, 2019 12:35pm Start: 07-26-2015 End: 05-17-2019 take 25 mg by mouth once daily Grape Seed Extract Disc ontinued 25 MG PO DAILY July 26, 2015 1:00am May 17, 2019 1:35pm 0.5 ml heparin sodium, porcine 26122 unt/ml prefilled syringe (2 sources) Unfractionated Heparin, Anti-coagulant Start: 03-16-2025 End: 03-16-2025 As needed, Starting on Wed03/16/25 at 1239, Intraprocedure 1 ml HYDROmorphone hydrochloride 1 mg/ml cartridge (1 source) Opioid Agonist Start: 07-19-2019 End: 07-19-2019 HYDROmorphone (DILAUDID) injection 0.25 mg Start: 07-19-2019 End: 07-19-2019 HYDROmorphone (DILAUDID) inj ection 0.25 mg iopamidol (Isovue-300) 61 % injection 75 mL (2 sources) Start: 03-16-2025 End: 03-16-2025 75 mL, Intra-arTERial, IMG once PRN, contrast, Starting on Wed03/16/25 at 1341, For 1 dose ipratropium bromide 0.021 mg/actuat metered dose nasal spray (15 sources) Anticholinergic Start: 01-08-2018 End: 05-17-2019 Ipratropium Cruger 0.03 % spray,non-aerosol Discontinued 2 NMA INTRANASAL 2 to 3 times per day as needed January 08, 2018 12:00am May 17, 2019 1:35pm Start: 01-08-2018 End: 05-17-2019 Ipratropium Cruger Disconti nued 2 SPRAY INTRANASAL 2 to 3 times per day January 08, 2018 12:00am May 17, 2019 1:35pm iv contrast (will be provide d with radiology test) (3 sources) Start: 11-27-2024 End: 11-28-2024 iv contrast (will be provide d with radiology test) Indications: Left lower quadrant abdominal pain CT ABD/PEL -Inject, intravenously, once for 1 dose.No IV access, insert saline lock prior to the beginning of sedation, infusion, injection of imaging exam. Discontinue saline lock post exam. If Pt. has a central line or IVAD, may access for administration according to line specific nursing protocol. Once exam is complete flush line and de-access according to line specific nursing protocol in the CT contrast administration guidelines link. 1 Each 11/27/2024 11/28/2024 Start: 11-27-2024 End: 11-28-2024 iv contrast (will be provide d with radiology test) Indications: Left lower quadrant abdominal pain CT ABD/PEL -Inject, intravenously, once for 1 dose.No IV access, insert saline lock prior to the beginning of sedation, infusion, injection of imaging exam. Discontinue saline lock post exam. If Pt. has a central line or IVAD, may access for administration according to line specific nursing protocol. Once exam is complete flush line and de-access according to line specific nursing protocol in the CT contrast administration guidelines link. 1 Each 11/27/2024 11/28/2024 Active Start: 01-05-2024 End: 01-06-2024 inject 1 dose intravenously once iv contrast (will be provided with radiology test) CTA CHEST (NONGATED) ABD/PEL WO/W IVCON - No IV access, insert saline lock prior to the sedation, infusion, injection for imaging exam. Discontinue saline lock post exam. If Pt. has a central line or IVAD, may access for administration according to line specific nursing protocol. Once exam is complete flush line and de-access according to line specific nursing protocol in the CT contrast administration guidelines link. 1 Each 0 01/05/2024 01/06/2024 Active Comment on above: CTA CHEST (NONGATED) ABD/PEL WO/W IVCON - No IV access, insert saline lock prior to the sedation, infusion, injection for imaging exam. Discontinue saline lock post exam. If Pt. has a central line or IVAD, may access for administration according to line specific nursing protocol. Once exam is complete flush line and de-access according to line specific nursing protocol in the CT contrast administration guidelines link. ivermectin 3 mg oral tablet (17 sources) Antiparasitic, Pediculicide Start: 1 End: 2 take 1 tablet by mouth once daily Ivermectin (Stromectol) 3 mg tablet Discontinued 3 mg PO DAILY January 16, 2021 12:00am November 12, 2021 5:19pm immune Start: 01-07-2021 End: 01-13-2022 ivermectin (STROMECTOL) 3 mg tab 2 tablets per week from online doctor (Covid 19 prevention) 0 01/07/2021 01/13/2022 Discontinued Comment on above: 2 tablets per week f rom online doctor (Covid 19 prevention) ketoconazole 20 mg/ml topical cream (8 sources) Azole Antifungal Start: 05-23-2024 End: 07-07-2024 Ketoconazole 2 % cream Discontinued 1 NMA TOPICAL TWICE A DAY May 23, 2024 12:00am July 07, 2024 2:19pm RASH 10 ml lidocaine hydrochloride 10 mg/ml injection (3 sources) Antiarrhythmic, Amide Local Anesthetic Start: 03-16-2025 End: 03-16-2025 As needed, Starting on Wed03/16/25 at 1209, Intraprocedure Start: 07-19-2019 End: 07-19-2019 lidocaine PF 1 % injection lisinopril 10 mg oral tablet (15 sources) Angiotensin Converting Enzyme Inhibitor Start: 10-13-2016 End: 01-08-2018 take 1 tablet by mouth once daily Lisinopril 10 MG tablet Discontinued 10 mg PO DAILY October 13, 2016 1:00am January 08, 2018 2:55pm LOW-DOSE ASPIRIN ORAL (20 sources) End: 01-10-2024 take 81 mg by mouth once daily LOW-DOSE ASPIRIN ORAL Take 81 mg by mouth once daily. 01/10/2024 Discontinued (Discontinued by Patient) End: 01-10-2024 take 81 mg by mouth once daily LOW-DOSE ASPIRIN ORAL T delia 81 mg by mouth once daily. 0 01/10/2024 Discontinued (Discontinued by Patient) take 81 mg by mouth once daily L OW-DOSE ASPIRIN ORAL Take 81 mg by mouth once daily. 0 Active Comment on above: Take 81 mg by mouth once daily. 5 ml metoprolol tartrate 1 mg/ml injection (2 sources) beta-Adrenergic Adrienne Start: 11-28-2024 End: 11-28-2024 5 mg, INTRAVENOUS, ONCE, 1 dose, On Wed11/28/24 at 2230, Administer IV push over 2-5 minutes. Start: 11-28-2024 End: 11-28-2024 5 mg, INTRAVENOUS, ONCE, 1 d ose, On Wed11/28/24 at 2230, Administer IV push over 2-5 minutes. miconazole nitrate 0.02 mg/mg topical powder (20 sources) Azole Antifungal Start: 10-29-2022 End: 06-07-2024 DESENEX 2 % powder apply to THE GROIN AREA twice a day 10/29/2022 06/07/2024 Discontinued Comment on above: apply to THE GROIN A NIKUNJ twice a day 2 ml midazolam 1 mg/ml injection (3 sources) Benzodiazepine Start: 03-16-2025 End: 03-16-2025 IntraVENous, As needed, Starting on Wed03/16/25 at 1208, Intraprocedure Start: 07-19-2019 End: 07-19-2019 midazolam (VERSED) injection Nitroprusside (1 source) Start: 11-28-2024 End: 11-28-2024 10-200 mcg/min (1.5-30 mL/hr), INTRAVENOUS, CONTINUOUS, Starting on Wed11/28/24 at 2230, Until Wed11/28/24 at 2237, Refrigerate - Protect From Light, Select One: Titrate, Choose target parameter: Systolic Blood Pressure (SBP), Titrate to a SBP (mmHg): Specify Range (mmHg), SBP lower limit (mmHg): 110, SBP upper limit (mmHg): 120, Starting Dose: 10-20 mcg/min or Continue at Current Infusion Rate, Titrate Amount/Interval: Titrate by 5-20 mcg/min every 5-10 minutes., Contact LIP: If dose adjusted by more than 120 mcg/min within 30 minutes., If this medication is paused for any duration of time and needs to be restarted: Restart at 10-20 mcg/min and titrate per order parameters. [place]-3 1,050 mg, Fish Oil, 1,050-1,200 mg cap (10 sources) [place]-3 1,050 mg , Fish Oil, 1,050-1,200 mg cap Take by mouth twice daily. 0 Active Comment on above: Take by mouth twice daily. OTC PRODUCT (9 sources) End: 01-10-2024 OTC PRODUCT 3 tablets once daily. [place] 0 01/10/2024 Discontinued (Discontinued by Patient) OTC PRODUCT 3 ta blets once daily. [place] 0 Active Comment on above: 3 tablets once daily . [place] pimecrolimus 10 mg/ml topical cream (15 sources) Calcineurin Inhibitor Immunosuppressant Start: 2022 End: 2023 pimecrolimus (ELIDEL) 1 % cream Apply to affected area twice daily. APPLY TO AFFECTED AREA 10/29/2022 01/10/2024 Discontinued (Discontinued by Patient) Comment on above: Apply to affected ar ea twice daily. APPLY TO AFFECTED AREA polyethylene glycol 3350 38601 mg powder for oral solution (8 sources) Osmotic Laxative Start: 2023 End: 2023 Polyethylene Glycol 3350 (Miralax) 17 gram/dose powder Discontinued 17 g PO DAILY 238 0 July 11, 2024 12:00am August 11, 2024 1:22pm polyethylene glycol 3350 845455 mg / potassium chloride 2970 mg / sodium bicarbonate 6740 mg / sodium chloride 5860 mg / sodium sulfate 93110 mg powder for oral solution (1 source) Osmotic Laxative Start: 2022 End: 2022 peg 3350-Electrolytes (GOLYTELY) 236-22.74-6.74 -5.86 gram suspension Take 4,000 mL by mouth one time only for 1 dose. Refer to printed prep instructions from your provider. 4000 mL 0 01/07/2023 01/07/2023 Comment on above: Take 4,000 mL by wendy th one time only for 1 dose. Refer to printed prep instructions from your provider. Sodium Chloride 0.9 % (12 sources) Start: 2022 End: 2022 take 1 mL intravenously once Sodium Chloride 0.9 % solution Discontinued 500 mL continuous subcutaneous infusion As Directed May 26, 2023 12:00am May 26, 2023 12:00am May 27, 2023 12:04am hydration Infuse IV over [address] Start: 05-26-2023 End: 05-27-2023 take 1 mL intravenously once Sodium Chloride 0.9 % nico ution Discontinued 500 mL continuous subcutaneous infusion As Directed May 26, 2023 12:00am May 26, 2023 12:00am May 27, 2023 12:04am Infuse IV over [address] scan Start: 05-26-2023 End: 05-27-2023 take 1 mL intravenously once Sodium Chloride 0.9 % Dis continued 500 ML continuous subcutaneous infusion As Directed May 25, 2023 11:00pm May 26, 2023 11:04pm Infuse IV over [address] Start: 05-26-2023 End: 05-27-2023 take 1 mL intravenously once Sodium Chloride 0.9 % Dis continued 500 ML continuous subcutaneous infusion As Directed May 26, 2023 12:00am May 27, 2023 12:04am Infuse IV over [address] scan Start: 07-19-2019 0.9 % sodium c hloride infusion traMADol hydrochloride 50 mg oral tablet (8 sources) Opioid Agonist Start: 08-31-2024 End: 11-28-2024 take 1 tablet by mouth every six hours as needed for pain Tramadol 50 mg tablet Discontinued 50 mg PO EVERY 6 HOURS as needed for pain 5 3 0 August 31, 2024 1:00am November 28, 2024 7:18pm triamcinolone acetonide 1 mg/ml topical cream (20 sources) Corticosteroid Start: 10-29-2022 End: 12-04-2024 triamcinolone acetonide (KENALOG) 0.1 % cream 10/29/2022 12/04/2024 Discontinued (Other) Start: 10-29-2022 triamcinolone acetonide (KENALOG) 0.1 % cream apply to AFFECTED AREAS OF THE UPPER EXTREMITIES TWICE DAILY FOR ... (REFER TO PRESCRIPTION NOTES). 0 10/29/2022 Active Comment on above: apply to AFFECTED AR EAS OF THE UPPER EXTREMITIES TWICE DAILY FOR ... (REFER TO PRESCRIPTION NOTES). ubidecarenone 100 mg oral capsule (20 sources) Start: 05-18-20 End: 07-07-20 take 10 capsules by mouth once daily Coenzyme Q10 100 mg capsule Discontinued 100 mg PO DAILY May 18, 2019 12:00am July 07, 2024 2:19pm supplement Start: 07-26-2015 End: 05-17-2019 take 10 capsules by mouth once daily Coenzyme Q10 100 MG capsule Discontinued 200 mg PO DAILY July 26, 2015 1:00am May 17, 2019 1:34pm Vitamin B Complex (20 sources) Start: 01-08-2018 End: 05-17-2019 take 1 tablet by mouth once daily Vitamin B Complex Discontinued 1 TABLET PO daily January 08, 2018 2:57pm May 17, 2019 1:35pm Start: 01-08-2018 End: 05-17-2019 take 1 tablet by mouth once daily Vitamin B Complex Discontinued 1 TABLET PO daily January 07, 2018 11:00pm May 17, 2019 12:35pm Start: 01-08-2018 End: 05-17-2019 take 1 tablet by mouth once daily Vitamin B Complex Discontinued 1 TABLET PO daily January 08, 2018 12:00am May 17, 2019 1:35pm Start: 07-10-2014 take 1 tablet by wendy th once daily vitamin b complex (B COMPLETE) tab Indications: Other and unspecified hyperlipidemia Take 1 tablet by mouth once daily. 0 07/10/2014 Suspended Start: 07-10-2014 take 1 tablet by wendy th once daily vitamin b complex (B COMPLETE) tab Indications: Other and unspecified hyperlipidemia Take 1 tablet by mouth once daily. 0 07/10/2014 Active Comment on above: Take 1 tablet by wendy th once daily. Vitamin B Complex tablet (8 sources) Start: 01-08-2018 End: 05-17-2019 Vitamin B Complex tablet Discontinued 1 {tbl} PO daily January 08, 2018 12:00am May 17, 2019 1:35pm zinc gluconate 50 mg oral tablet (20 sources) End: 12-04-2024 take 1 tablet by mouth once daily Zinc Gluconate 50 mg tablet Take 50 mg by mouth once daily. 12/04/2024 Discontinued (Other) Problems Active Problems Problem Classification Problem Date Documented Da te Episodic/Chronic Aortic; peripheral; and visceral artery aneurysms (20 sources) Abdominal aortic 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; Translations: [Abdominal aortic aneurysm, without rupture] Onset: 2 Resolved: 3 11-22-2018 Chronic Comment on above: 4.67 x 4.82 cm in di ameter as of January 19, 2023 Chronic kidney disease (20 sources) Chronic kidney disease stage 3; Translations: [CKD (chronic kidney disease) stage 3, GFR 30-59 ml/min] Onset: 4 01-09-2015 Chronic Chronic kidney disease (1 source) Chronic kidney disease; Translations: [Stage 3b chronic kidney disease (HCC)] Onset: 5 Coagulation and hemorrhagic disorders (20 sources) Thrombocytopenic disorder; Translations: [Thrombocytopenia, unspecified] Onset: 4 06-07-2024 Chronic Complication of device; implant or graft (1 source) Leakage of aortic (bifurcation) graft (replacement), initial encounter; Translations: [Leakage of aortic (bifurcation) graft (replacement), initial encounter] Onset: 5 Episodic Congestive heart failure; nonhypertensive (20 sources) Chronic diastolic (congestive) heart failure; Translations: [Chronic diastolic heart failure] Onset: 7 10-20-2016 Chronic Deficiency and other anemia (20 sources) Anemia of chronic disease; Translations: [Anemia in other chronic diseases classified elsewhere] Onset: 5 11-30-2024 Chronic Deficiency and other anemia (1 source) Anemia in other chronic diseases classified elsewhere; Translations: [Anemia of chronic disease] Onset: 5 Chronic Deficiency and other anemia (16 sources) Anemia; Translations: [Anemia, unspecified] 01-08-2021 Episodic Deficiency and other anemia (1 source) Anemia, unspecified; Translations: [Anemia, unspecified type] Onset: 5 Episodic Disorders of lipid metabolism (20 sources) Hyperlipidemia; Translations: [Other hyperlipidemia] Onset: 5 03-15-2018 Chronic Comment on above: ON MED Diverticulosis and diverticulitis (20 sources) Diverticula of intestine; Translations: [Diverticulosis of intestine, part unspecified, without perforation or abscess without bleeding] 01-08-2021 Chronic E Codes: Fall (1 source) Fall 11-09-2024 Essential hypertension (20 sources) Essential (primary) hypertension; Translations: [Benign essential hypertension] Onset: 5 01-09-2015 Chronic Comment on above: PER PT, CONTROLLED O N MEDS Hyperplasia of prostate (20 sources) Benign prostatic hypertrophy with outflow obstruction; Translations: [Benign prostatic hyperplasia with lower urinary tract symptoms] Onset: 6 02-10-2018 Chronic Hypertension with complications and secondary hypertension (15 sources) Hypertensive heart failure; Translations: [Hypertensive heart disease with heart failure] 01-08-2018 Chronic Malaise and fatigue (4 sources) Fatigue; Translations: [Other fatigue] Onset: 5 05-23-2024 Episodic Noninfectious gastroenteritis (20 sources) Collagenous colitis; Translations: [Collagenous colitis] Onset: 3 02-04-2023 Chronic Occlusion or stenosis of precerebral arteries (20 sources) Internal carotid artery stenosis; Translations: [Occlusion and stenosis of right carotid artery] Onset: 4 Chronic Other aftercare (10 sources) History of hernia repair; Translations: [Encounter for follow-up examination after completed treatment for conditions other than malignant neoplasm] 09-15-2024 Episodic Other aftercare (3 sources) Surgical follow-up; Translations: [Encounter for surgical aftercare following surgery on the circulatory system] 04-18-2025 Episodic Other aftercare (1 source) Encounter for surgical aftercare following surgery on the circulatory system; Translations: [Encounter for surgical aftercare following surgery on the circulatory system] Onset: Episodic Other connective tissue disease (15 sources) History of total knee arthroplasty; Translations: [Presence of left artificial knee joint] 04-01-2021 Chronic Other connective tissue disease (15 sources) History of total hip arthroplasty; Translations: [Presence of unspecified artificial hip joint] 04-01-2021 Chronic Other gastrointestinal disorders (1 source) Loose stool; Translations: [Other fecal abnormalities] Episodic Other gastrointestinal disorders (3 sources) Diarrhea; Translations: [Diarrhea, unspecified] Episodic Other gastrointestinal disorders (8 sources) Constipation; Translations: [Constipation, unspecified] 07-19-2024 Episodic Other hematologic conditions (1 source) History of anemia; Translations: [Personal history of diseases of the blood and blood-forming organs and certain disorders involving the immune mechanism] 05-23-2024 Episodic Other lower respiratory disease (17 sources) Dyspnea; Translations: [Shortness of breath] 05-17-2019 Episodic Other lower respiratory disease (15 sources) Productive cough ; Translations: [Cough productive of purulent sputum] 05-17-2019 Episodic Other lower respiratory disease (1 source) Cough; Translations: [Cough] Episodic Other lower respiratory disease (1 source) Shortness of breath; Translations: [Shortness of breath] Onset: 5 Episodic Other male genital disorders (20 sources) Secondary erectile dysfunction; 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, unspecified] Onset: 6 01-09-2015 Chronic Other nervous system disorders (8 sources) Ataxia; Translations: [Ataxia, unspecified] 06-01-2024 Episodic Other non-traumatic joint disorders (2 sources) Shoulder pain; Translations: [Pain in right shoulder] 02-09-2024 Episodic Other non-traumatic joint disorders (1 source) Chronic pain of right upper limb; Translations: [Pain in right shoulder] 03-11-2024 Episodic Other non-traumatic joint disorders (1 source) Pain in right hip joint; Translations: [Pain in right hip] Other nutritional; endocrine; and metabolic disorders (1 source) Weight loss; Translations: [Abnormal weight loss] 05-23-2024 Episodic Other upper respiratory disease (20 sources) Allergic rhinitis; Translations: [Allergic rhinitis, unspecified] Onset: 7 11-17-2016 Chronic Other upper respiratory infections (2 sources) Acute upper respiratory infection; Translations: [Acute upper respiratory infection, unspecified] Episodic Otitis media and related conditions (1 source) Acute right otitis media; Translations: [Otitis media, unspecified, right ear] Episodic Pneumonia (except that caused by tuberculosis or sexually transmitted disease) (15 sources) Pneumonia due to respiratory syncytial virus; Translations: [Respiratory syncytial virus pneumonia] 05-17-2019 Episodic Residual codes; unclassified (15 sources) History of repair of umbilical hernia; Translations: [Other specified postprocedural states] 04-01-2021 Episodic Residual codes; unclassified (15 sources) History of repair of eyelid; Translations: [Other specified postprocedural states] 04-01-2021 Episodic Residual codes; unclassified (15 sources) History of colonoscopy; Translations: [Other specified postprocedural states] 04-01-2021 Episodic Residual codes; unclassified (2 sources) Procedure not done; Translations: [Procedure and treatment not carried out, unspecified reason] 07-11-2024 Episodic Screening and history of mental health and substance abuse codes (2 sources) Patient encounter status; Translations: [Encounter for screening for depression] 09-07-2024 Episodic Thyroid disorders (20 sources) Hypothyroidism; Translations: [Hypothyroidism, unspecified] Onset: 4 09-07-2024 Chronic Transient cerebral ischemia (11 sources) Transient cerebral ischemia; Translations: [Transient cerebral ischemic attack, unspecified] Onset: 4 06-07-2024 Chronic Unclassified (2 sources) Unknown / UNK(Unknown) Onset: 7 Unclassified (15 sources) High Risk Chronic Disease Home Monitoring Problem Onset: 3 02-03-2023 Unclassified (1 source) Musculoskeletal finding 11-09-2024 Past or Other Problems Problem Classification Problem Date Documented Da te Episodic/Chronic Abdominal hernia (20 sources) Recurrent ventral incisional hernia; Translations: [Incisional hernia without obstruction or gangrene] Onset: 07-01-2015 Resolved: 12-08-2024 08-26-2017 Episodic Comment on above: Left Abdominal pain (17 sources) Left lower quadrant pain; Translations: [Left lower quadrant pain] Onset: 11-27-2024 11-27-2024 Episodic Complications of surgical procedures or medical care (20 sources) Wound hematoma; Translations: [Postoperative wound hematoma] Onset: 11-28-2024 01-20-2021 Episodic Conditions associated with dizziness or vertigo (2 sources) Dizziness; Translations: [Dizziness and giddiness] Onset: 06-09-2024 05-23-2024 Episodic E Codes: Fall (20 sources) Fall; Translations: [Unspecified fall, subsequent encounter] Onset: 11-21-2024 11-09-2024 Episodic Medical examination/evaluation (1 source) Encounter for preprocedural cardiovascular examination; Translations: [Encounter for preprocedural cardiovascular examination] Onset: 09-09-2017 Episodic Other connective tissue disease (20 sources) Musculoskeletal finding; Translations: [Other symptoms and signs involving the musculoskeletal system] Onset: 11-21-2024 11-09-2024 Episodic Other connective tissue disease (1 source) Other symptoms and signs involving the musculoskeletal system; Translations: [Proximal leg weakness] Onset: 11-21-2024 Episodic Other gastrointestinal disorders (20 sources) Splenomegaly; Translations: [Splenomegaly, not elsewhere classified] Onset: 07-17-2024 07-17-2024 Episodic Other hematologic conditions (1 source) Personal history of diseases of the blood and blood-forming organs and certain disorders involving the immune mechanism; Translations: [History of anemia] Onset: 05-31-2024 Episodic Other nutritional; endocrine; and metabolic disorders (20 sources) Body mass index 25-29 - overweight; Translations: [Overweight] Onset: 08-10-2018 07-09-2021 Episodic Other nutritional; endocrine; and metabolic disorders (1 source) Abnormal weight loss; Translations: [Weight loss] Onset: 05-31-2024 Episodic Other screening for suspected conditions (not mental disorders or infectious disease) (2 sources) Thyroid hormone tests abnormal; Translations: [Other specified abnormal findings of blood chemistry] Onset: 08-04-2024 06-07-2024 Episodic Other skin disorders (20 sources) Vitiligo; Translations: [Vitiligo] Onset: 01-12-2013 01-09-2015 Episodic Pancreatic disorders (not diabetes) (20 sources) Cyst of pancreas; Translations: [Cyst of pancreas] Onset: 07-17-2024 07-17-2024 Episodic Residual codes; unclassified (20 sources) History of repair of aneurysm of abdominal aorta; Translations: [Other specified postprocedural states] Onset: 04-16-2023 04-16-2023 Episodic Residual codes; unclassified (20 sources) History of cardiovascular surgery; Translations: [Other specified postprocedural states] Onset: 01-20-2021 11-30-2024 Episodic Spondylosis; intervertebral disc disorders; other back problems (20 sources) Disorder of lumbar disc; 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, thoracolumbar and lumbosacral intervertebral disc disorder] Onset: 08-26-2017 Resolved: 03-15-2018 01-08-2021 Chronic Spondylosis; intervertebral disc disorders; other back problems (20 sources) Lumbar radiculopathy; Translations: [Radiculopathy, lumbar region] Onset: 08-26-2017 Resolved: 03-15-2018 03-15-2018 Episodic Superficial injury; contusion (20 sources) Abrasion of head; Translations: [Abrasion of unspecified part of head, initial encounter] Onset: 11-21-2024 11-07-2024 Episodic Unclassified (4 sources) 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 Results Test Name Value Interpretation Reference Range Facility CBC W Auto Differential pane l (Bld)on 05-18-2025 Basophils (Bld) [#/Vol] 0.04 10*3/uL [facility] Basophils/100 WBC (Bld) 0.9 % [facility] Differential cell count method Nom (Bld) Auto [facility] Eosinophils (Bld) [#/Vol] 0.19 10*3/uL [facility] Eosinophils/100 WBC (Bld) 4.1 % [facility] Erythrocyte distribution width (RBC) [Ratio] 14.9 % 11.5 - 15.0 % [facility] Hematocrit (Bld) [Volume fraction] 34.6 % Low 39.0 - 51.0 % [facility] Hemoglobin (Bld) [Mass/Vol] 11.0 g/dL Low 13.0 - 17.0 g/dL [facility] Immature granulocytes (Bld) [#/Vol] [facility] Immature granulocytes/100 WBC (Bld) 0.2 % [facility] Interpretation and review of laboratory results Abnormal [facility] Lymphocytes (Bld) [#/Vol] 1.04 10*3/uL [facility] Lymphocytes/100 WBC (Bld) 22.2 % [facility] MCH (RBC) [Entitic mass] 29.8 pg 26.0 - 34.0 pg [facility] MCHC (RBC) [Mass/Vol] 31.8 g/dL 30.5 - 36.0 g/dL [facility] MCV (RBC) [Entitic vol] 93.8 fL 80.0 - 100.0 fL [facility] Monocytes (Bld) [#/Vol] 0.53 10*3/uL [facility] Monocytes/100 WBC (Bld) 11.3 % [facility] Neutrophils (Bld) [#/Vol] 2.87 10*3/uL [facility] Neutrophils/100 WBC (Bld) 61.3 % [facility] Nucleated RBC (Bld) [#/Vol] [facility] Nucleated RBC/100 WBC (Bld) [Ratio] 0.0 % /100 WBC [facility] Platelet mean volume (Bld) [Entitic vol] 12.6 fL 9.0 - 12.7 fL [facility] Platelets (Bld) [#/Vol] 73 10*3/uL Low [facility] Comment on above: No clot detected. RBC (Bld) [#/Vol] 3.69 10*6/uL Low 4.20 - 6.0 0 m/uL [facility] WBC (Bld) [#/Vol] 4.68 10*3/uL [facility] Basophils (Bld) [#/Vol] 0.04 10*3/uL Normal <0.11 [facility] Comment on above: Order Comment: Speci men Type: BLOOD SPECIMENOrdering Facility: [facility] Address: [address] [place] [address] Performed By: #### 5 7021-8 ####[facility] LABCLIA [id number] [facility] [place] [address] [place] Basophils/100 WBC (Bld) 0.9 % Normal [facility] Comment on above: Order Comment: Speci men Type: BLOOD SPECIMENOrdering Facility: [facility] Address: [address] [place] [address] Performed By: #### 5 7021-8 ####[facility] LABCLIA [id number] [facility] [place] [address] [place] Differential cell count method Nom (Bld) Auto Normal [facility] Comment on above: Order Comment: Speci men Type: BLOOD SPECIMENOrdering Facility: [facility] Address: [address] [place] [address] Performed By: #### 5 7021-8 ####[facility] LABCLIA [id number] [facility] [place] [address] [place] Eosinophils (Bld) [#/Vol] 0.19 10*3/uL Normal <0.46 [facility] Comment on above: Order Comment: Speci men Type: BLOOD SPECIMENOrdering Facility: [facility] Address: [address] [place] [address] Performed By: #### 5 7021-8 ####[facility] LABCLIA [id number] [facility] [place] [address] [place] Eosinophils/100 WBC (Bld) 4.1 % Normal [facility] Comment on above: Order Comment: Speci men Type: BLOOD SPECIMENOrdering Facility: [facility] Address: [address] [place] [address] Performed By: #### 5 7021-8 ####[facility] LABIA [id number] [address] [address] [place] Erythrocyte distribution width (RBC) [Ratio] 14.9 % Normal 11.5-15.0 [facility] Comment on above: Order Comment: Speci men Type: BLOOD SPECIMENOrdering Facility: [facility] Address: [address] [place] [address] Performed By: #### 5 7021-8 ####[facility] LABIA [id number] [place] [address] [place] Hematocrit (Bld) [Volume fraction] 34.6 % Low 39.0-51.0 [facility] Comment on above: Order Comment: Speci men Type: BLOOD SPECIMENOrdering Facility: [facility] Address: [address] [place] [address] Performed By: #### 5 7021-8 ####[facility] LABIA [id number] [place] [address] [place] Hemoglobin (Bld) [Mass/Vol] 11.0 g/dL Low 13.0-17.0 [facility] Comment on above: Order Comment: Speci men Type: BLOOD SPECIMENOrdering Facility: [facility] Address: [address] [place] [address] Performed By: #### 5 7021-8 ####[facility] LABIA [id number] [place] [address] [place] Immature granulocytes (Bld) [#/Vol] 10*3/uL Normal <0.10 [facility] Comment on above: Order Comment: Speci men Type: BLOOD SPECIMENOrdering Facility: [facility] Address: [address] [place] [address] Performed By: #### 5 7021-8 ####[facility] LABCLIA [id number] [place] [address] [place] Immature granulocytes/100 WBC (Bld) 0.2 % Normal [facility] Comment on above: Order Comment: Speci men Type: BLOOD SPECIMENOrdering Facility: [facility] Address: [address] [place] [address] Performed By: #### 5 7021-8 ####[facility] LABCLIA [id number] [place] [address] [place] Lymphocytes (Bld) [#/Vol] 1.04 10*3/uL Normal 1.00-4.00 [facility] Comment on above: Order Comment: Speci men Type: BLOOD SPECIMENOrdering Facility: [facility] Address: [address] [place] [address] Performed By: #### 5 7021-8 ####[facility] LABIA [id number] [place] [address] [place] Lymphocytes/100 WBC (Bld) 22.2 % Normal [facility] Comment on above: Order Comment: Speci men Type: BLOOD SPECIMENOrdering Facility: [facility] Address: [address] [place] [address] Performed By: #### 5 7021-8 ####[facility] LABIA [id number] [place] [address] [place] MCH (RBC) [Entitic mass] 29.8 pg Normal 26.0-34.0 [facility] Comment on above: Order Comment: Speci men Type: BLOOD SPECIMENOrdering Facility: [facility] Address: [address] [place] [address] Performed By: #### 5 7021-8 ####[facility] LABCLIA [id number] [place] [address] [place] MCHC (RBC) [Mass/Vol] 31.8 g/dL Normal 30.5-36.0 [facility] Comment on above: Order Comment: Speci men Type: BLOOD SPECIMENOrdering Facility: [facility] Address: [address] [place] [address] Performed By: #### 5 7021-8 ####[facility] LABCLIA [id number] [place] [address] [place] MCV (RBC) [Entitic vol] 93.8 fL Normal 80.0-100.0 [facility] Comment on above: Order Comment: Speci men Type: BLOOD SPECIMENOrdering Facility: [facility] Address: [address] [place] [address] Performed By: #### 5 7021-8 ####[facility] LABIA [id number] [place] [address] [place] Monocytes (Bld) [#/Vol] 0.53 10*3/uL Normal <0.87 [facility] Comment on above: Order Comment: Speci men Type: BLOOD SPECIMENOrdering Facility: [facility] Address: [address] [place] [address] Performed By: #### 5 7021-8 ####[facility] LABIA [id number] [place] [address] [place] Monocytes/100 WBC (Bld) 11.3 % Normal [facility] Comment on above: Order Comment: Speci men Type: BLOOD SPECIMENOrdering Facility: [facility] Address: [address] [place] [address] Performed By: #### 5 7021-8 ####[facility] LABIA [id number] [place] [address] [place] Neutrophils (Bld) [#/Vol] 2.87 10*3/uL Normal 1.45-7.50 [facility] Comment on above: Order Comment: Speci men Type: BLOOD SPECIMENOrdering Facility: [facility] Address: [address] [place] [address] Performed By: #### 5 7021-8 ####[facility] LABCLIA [id number] [place] [address] [place] Neutrophils/100 WBC (Bld) 61.3 % Normal [facility] Comment on above: Order Comment: Speci men Type: BLOOD SPECIMENOrdering Facility: [facility] Address: [address] [place] [address] Performed By: #### 5 7021-8 ####[facility] LABCLIA [id number] [place] [address] [place] Nucleated RBC (Bld) [#/Vol] 10*3/uL Normal <0.01 [facility] Comment on above: Order Comment: Speci men Type: BLOOD SPECIMENOrdering Facility: [facility] Address: [address] [place] [address] Performed By: #### 5 7021-8 ####[facility] LABIA [id number] [place] [address] [place] Nucleated RBC/100 WBC (Bld) [Ratio] 0.0 /100 WBC Normal [facility] Comment on above: Order Comment: Speci men Type: BLOOD SPECIMENOrdering Facility: [facility] Address: [address] [place] [address] Performed By: #### 5 7021-8 ####[facility] LABIA [id number] [place] [address] [place] Platelet mean volume (Bld) [Entitic vol] 12.6 fL Normal 9.0-12.7 [facility] Comment on above: Order Comment: Speci men Type: BLOOD SPECIMENOrdering Facility: [facility] Address: [address] [place] [address] Performed By: #### 5 7021-8 ####[facility] LABIA [id number] [place] [address] [place] Platelets (Bld) [#/Vol] 73 10*3/uL Low 150-400 [facility] Comment on above: Order Comment: Speci men Type: BLOOD SPECIMENOrdering Facility: [facility] Address: [address] [place] [address] Result Comment: No c lot detected. Performed By: #### 5 7021-8 ####[facility] LABCLIA [id number] [place] [address] [place] RBC (Bld) [#/Vol] 3.69 10*6/uL Low 4.20-6.00 [facility] Comment on above: Order Comment: Speci men Type: BLOOD SPECIMENOrdering Facility: [facility] Address: [address] [place] [address] Performed By: #### 5 7021-8 ####[facility] LABCLIA [id number] [place] [address] [place] WBC (Bld) [#/Vol] 4.68 10*3/uL Normal 3.70-11.00 [facility] Comment on above: Order Comment: Speci men Type: BLOOD SPECIMENOrdering Facility: [facility] Address: [address] [place] [address] Performed By: #### 5 7021-8 ####[facility] LABCLIA [id number] [place] [address] [place] CNOVon 05-18-2025 CNOV Normal [facility] Ferritin SerPl-mCncon 2024 Ferritin [Mass/Vol] 384.0 ng/mL Normal 30.3-565.7 [facility] Comment on above: Order Comment: Speci men Type: BLOOD SPECIMENOrdering Facility: [facility] Address: [address] [place] [address] Performed By: #### 5 0190-8, 2276-4, 3016-3 ####[facility] LABCLIA [id number] [address] [address] [place] Folate SerPl-mCncon 05-18-20 Folate [Mass/Vol] 13.6 ng/mL Normal >4.7 [facility] Comment on above: Order Comment: Speci men Type: BLOOD SPECIMENOrdering Facility: [facility] Address: [address] [place] [address] Performed By: #### 2 132-9, 2284-8 ####[facility] LABCLIA [id number] [place] [id number] [place] Iron and Iron binding capaci ty panelon 05-18-2025 Iron [Mass/Vol] 76 ug/dL Normal 41-186 [facility] Comment on above: Order Comment: Speci men Type: BLOOD SPECIMENOrdering Facility: [facility] Address: [address] [place] [address] Performed By: #### 5 0190-8, 2276-4, 3016-3 ####[facility] LABIA [id number] [address] [place] Iron binding capacity [Mass/Vol] 297 ug/dL Normal 232-386 [facility] Comment on above: Order Comment: Speci men Type: BLOOD SPECIMENOrdering Facility: [facility] Address: [address] [place] [address] Performed By: #### 5 0190-8, 2276-4, 3016-3 ####[facility] LABIA [id number] [place] [id number] [place] Iron/TIBC [Molar ratio] 25.6 % Normal 15.0-57.0 [facility] Comment on above: Order Comment: Speci men Type: BLOOD SPECIMENOrdering Facility: [facility] Address: [address] [place] [address] Performed By: #### 5 0190-8, 2276-4, 3016-3 ####[facility] LABCLIA [id number] [address] [address] [place] TSH SerPl-aCncon 05-18-2025 TSH Qn 9.500 m[IU]/L High 0.270-4.200 [facility] Comment on above: Order Comment: Speci men Type: BLOOD SPECIMENOrdering Facility: [facility] Address: [address] [place], [place] [address] Performed By: #### 5 0190-8, 2276-4, 3016-3 ####[facility] LABCLIA [id number] [place] [id number] [place] Vit B12 SerPl-mCncon 025 Cobalamin (Vitamin B12) [Mass/Vol] 1891 pg/mL High 232-1245 [facility] Comment on above: Order Comment: Speci men Type: BLOOD SPECIMENOrdering Facility: [facility] Address: [address] [place] [address] Performed By: #### 2 132-9, 2284-8 ####[facility] LABCLIA [id number] [place] [id number] [place] Anion gap in Serum or Plasma Ordered By: Mike Jay on 05-10-2025 Anion gap [Moles/Vol] 11 mmol/L 5-15 [facility] BUN/creatinine ratioOrdered By: Mike Jay on 05-10-2025 Urea nitrogen/Creatinine [Mass ratio] 27.0 mg/mg High - [facility] Basic Metabolic Profile (BMP )on 05-10-2025 BUN/CRE 27.0 RATIO High - [facility] Comment on above: Order Comment: SEND CRE TO Performed By: #### L 501.5201, L503.9795, L500.2500 ####[facility] [address] [place], [address] Calcium [Mass/Vol] 9.1 mg/dL Normal 7.6-11.0 [facility] Comment on above: Order Comment: SEND CRE TO Performed By: #### L 501.5200, L503.7505, L500.2500 ####[facility] [address] [place], [address] Chloride [Moles/Vol] 101 mmol/L Normal 98-108 [facility] Comment on above: Order Comment: SEND CRE TO Performed By: #### L 501.5200, L503.7505, L500.2500 ####[facility] [address] [place], [address] CO2 [Moles/Vol] 26.1 mmol/L Normal 21.0-32.0 [facility] Comment on above: Order Comment: SEND CRE TO Performed By: #### L 501.5200, L503.7505, L500.2500 ####[facility] [address] [place], [address] Creatinine [Mass/Vol] 1.53 mg/dL High 0.70-1.20 [facility] Comment on above: Order Comment: SEND CRE TO Performed By: #### L 501.5200, L503.7505, L500.2500 ####[facility] [address] [place], [address] GAP 11 Normal 5-15 [facility] Comment on above: Order Comment: SEND CRE TO Performed By: #### L 501.5200, L503.7505, L500.2500 ####[facility] [address] [place], [address] GFR/1.73 sq M.predicted among non-blacks MDRD (S/P/Bld) [Vol rate/Area] 44 mL/min/{1.73_m2} Low >60 [facility] Comment on above: Order Comment: SEND CRE TO Result Comment: mL/m in/1.73m2 CKD-EPI Creatinine Equation (2020) Performed By: #### L 501.5200, L503.7505, L500.2500 ####[facility] [address] [place], [address] Glucose [Mass/Vol] 98 mg/dL Normal 70-99 [facility] Comment on above: Order Comment: SEND CRE TO Performed By: #### L 501.5200, L503.7505, L500.2500 ####[facility] [address] [place], [address] Potassium [Moles/Vol] 4.1 mmol/L Normal 3.3-5.1 [facility] Comment on above: Order Comment: SEND CRE TO Performed By: #### L 501.5200, L503.7505, L500.2500 ####[facility] [address] [place], [address] Sodium [Moles/Vol] 138 mmol/L Normal 133-145 [facility] Comment on above: Order Comment: SEND CRE TO Performed By: #### L 501.5200, L503.7505, L500.2500 ####[facility] [address] [place], [address] Urea nitrogen [Mass/Vol] 41 mg/dL High 4-19 [facility] Comment on above: Order Comment: SEND CRE TO Performed By: #### L 501.5200, L503.7505, L500.2500 ####[facility] [address] [place], [address] Carbon dioxide, total [Moles /volume] in Central venous bloodOrdered By: Mike Jay on 05-10-2025 CO2 [Moles/Vol] 26.1 mmol/L 21.0-32.0 [facility] Cardiology Visit Reporton Cardiology Visit Report [facility] [address] [place] [address] OFFICE VISIT Date of Service: 05/10/25 MR#: [id number] Acct: [id number] Name: LEANA CAMEJO Rep #: [id number] : 1940 Provider: SHELLIE calvert Age/Sex: 85/M Location: [facility] Status: Signed HPI HPI History of Present Illness Details: This is an 85-year-old white male who presents today for an outpatient cardiovascular follow-up visit. He has a history of diastolic mediated CHF, abdominal aortic aneurysm, status post right carotid endarterectomy, hyperlipidemia, and hypertension. He denies chest, arm, jaw, or neck discomfort. He states palpitations. This is noted at night when moving in bed. He denies bilateral lower extremity edema. He denies claudication. He denies shortness of breath with activity, shortness of breath at rest, or PND. He acknowledges orthopnea. This has been ongoing for a month. He sleeps in a recliner to help. He denies chronic cough. He denies significant, sudden weight gain. He denies lightheadedness, dizziness, near-syncope, or syncope. He denies blood in urine, blood in stool, or epistaxis. He denies fever with chills. He denies myalgia. He states fatigue. His exercise level has remained stable. 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 Accompanied by: Self Is patient in pain?: No Allergies lisinopril Allergy (Intermediate, Verified 05/10/25 08:10) Rash atorvastatin calcium (From Lipitor) Allergy (Verified 05/10/25 08:10) Other clonidine Allergy (Verified 05/10/25 08:10) Unknown rosuvastatin calcium (From Crestor) Allergy (Verified 05/10/25 08:10) Other Rvnwuyo-XSS-BwM Reductase Inhibitor (Qrggqom-Lib-Gze Reductase Inhibitor) Allergy (Verified 05/10/25 08:10) Other Medications ???Medication ???Instructions ???Recorded ???Confirmed ???Type losartan 100 mg tablet 100 mg PO DAILY BP 05/17/19 History multivitamin 1 tab PO DAILY supplement 05/18/19 05/10/25 History ascorbic acid (vitamin C) 500 mg 1,000 mg PO DAILY supplement 02/1305/10/25 History capsule carvedilol 12.5 mg tablet 12.5 mg PO BID heart #180 tabs 05/10/25 Rx doxazosin 8 mg tablet 8 mg PO QHS prostate 05/23/2404/21 History hydralazine 100 mg tablet 100 mg PO TID blood pressure 05/2305/10/25 History magnesium oxide 400 mg (241.3 mg 400 mg PO DAILY supplement 4 05/10/25 History magnesium) tablet bempedoic acid 180 mg tablet 180 mg PO DAILY 07/11/24 05/10/25 History (Nexletol) ezetimibe 10 mg tablet 10 mg PO DAILY 07/11/24 05/10/25 H istory levothyroxine 25 mcg tablet 25 mcg PO DAILY 11/28/24 05/10/25 History cholecalciferol (vitamin D3) 125 125 mcg PO DAILY 01/12/25 05/10/25 History mcg (5,000 unit) tablet (Vitamin D3) ferrous sulfate 325 mg (65 mg 325 mg PO DAILY 01/12/25 05/10/25 History iron) tablet (Feosol) nifedipine 60 mg tablet,extended 60 mg PO DAILY 01/12/25 05/10/25 H istory release Have you fallen in the past year?: Yes PFSH Medical History Spigelian hernia Wears hearing aid Wears glasses History of steroid therapy Arthritis History of renal disease TIA (transient ischemic attack) Ataxia History of echocardiogram Easy bruising History of IBS Former smoker History of stress test Cardiology follow-up encounter History of irregular heartbeat Preop cardiovascular exam Stenosis of right internal carotid artery Abdominal aortic 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 Essential hypertension Lumbar disc disease 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 Hyperlipidemia Diverticulosis Pre-operative cardiovascular examination Anemia 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, NYHA class 2 RSV (respiratory syncytial virus pneumonia) Shortness of breath Cough productive of purulent sputum Surgical History S/P spigelian hernia repair, follow-up exam S/P AAA repair ( 02/2025) History of right-sided carotid endarterectomy Hx of cataract surgery Hx of appendectomy History of tonsillectomy History of back surgery History of colonoscopy History of blepharoplasty History of inguinal hernia repair History of umbilical hernia repair 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 Family History Father (more content not included)... Normal [facility] Chloride assayOrdered By: Keily Jay on 05-10-2025 Chloride [Moles/Vol] 101 mmol/L 98-108 [facility] Glomerular filtration rate ( GFR) estimation/1.73 sq m using serum, plasma, or whole bOrdered By: Mike Jay on 05-10-2025 GFR/1.73 sq M.predicted among non-blacks MDRD (S/P/Bld) [Vol rate/Area] 44 mL/min/{1.73_m2} Low >60 [facility] Comment on above: mL/min/1.73m2 CKD-EP I Creatinine Equation (2020) Magnesiumon 05-10-2025 Magnesium [Mass/Vol] 2.3 mg/dL High 1.5-2.2 [facility] Comment on above: Order Comment: SEND CRE TO Performed By: #### L 501.5200, L503.7505, L500.2500 ####[facility] [address] [place], [place], [id number] Magnesium measurement (mass/ volume)Ordered By: Mike Jay on 05-10-2025 Magnesium (Unsp spec) [Mass/Vol] 2.3 mg/dL High 1.5-2.2 [facility] Natriuretic peptide.B prohor mani N-Terminal [Mass/volume] in Serum or PlasmaOrdered By: Mike Jay on 05-10-2025 Natriuretic peptide.B prohormone N-Terminal [Mass/Vol] 5468 pg/mL High <1800 [facility] Comment on above: Heart Failure Unlike ly: < 300 pg/mLHeart Failure Likely< 50 Years: > 450 pg/mL50-75 Years: > 900 pg/mL>75 Years: > 1800 pg/mL Potassium measurement (mass/ volume)Ordered By: Mike Jay on 05-10-2025 Potassium (Unsp spec) [Mass/Vol] 4.1 mmol/L 3.3-5.1 [facility] Pro- Brain NATRIURETIC PEPTI [place] 05-10-2025 Natriuretic peptide B (Bld) [Mass/Vol] 5468 pg/mL High <=1800 [facility] Comment on above: Order Comment: SEND CRE TO Result Comment: Hear t Failure Unlikely: < 300 pg/mL Heart Failure Likely < 50 Years: > 450 pg/mL 50-75 Years: > 900 pg/mL >75 Years: > 1800 pg/mL Performed By: #### L 501.5200, L503.7505, L500.2500 ####[facility] [address] [place], [address] Serum Creatinine AND GFRon 0 05-10-2025 CREAT,SERUM Normal 0.70-1.20 [facility] Comment on above: Result Comment: OVER LAPPING TEST Performed By: #### L 501.2450, L100.0100, BTS, L500.4050 #### [facility] [address] [place], [address] eGFR Normal >60 [facility] Comment on above: Result Comment: OVER LAPPING TEST Performed By: #### L 501.2450, L100.0100, BTS, L500.4050 #### [facility] [address] [place], [address] Serum creatinine measurement (mass/volume)Ordered By: Mike Jay on 05-10-2025 Creatinine [Mass/Vol] 1.53 mg/dL High 0.70-1.20 [facility] Serum glucose measurement (m ass/volume)Ordered By: Mike Jay on 05-10-2025 Glucose [Mass/Vol] 98 mg/dL 70-99 [facility] Serum or plasma calcium jossie urement (mass/volume)Ordered By: Mike Jay on 05-10-2025 Calcium [Mass/Vol] 9.1 mg/dL 7.6-11.0 [facility] Serum or plasma urea nitroge n measurement (mass/volume)Ordered By: Mike Jay on 05-10-2025 Urea nitrogen [Mass/Vol] 41 mg/dL High 4-19 [facility] Sodium levelOrdered By: Mike Jay on 05-10-2025 Sodium [Moles/Vol] 138 mmol/L 133-145 [facility] CTA Abd/Pelvis W/WO Contrast on 04-30-2025 CTA Abd/Pelvis W/WO Contrast [facility] [address] [place] [address] CTA Abd/Pelvis W/WO Contrast MR#: [id number] Acct: [id number] Name: LEANA CAMEJO Rep #: [id number] : 1940 M 85 From: Jw leo MD PCP: Dr. Dallas Reed MD Status: REG CLI Study: CTA Abd/Pelvis W/WO Contrast Date of Exam: 08/14 Exam# [id number] Ordering Dr: Dustin Hawk MD PROCEDURE: CTA ABD/PELVIS W/WO CONTRAST 04/30/2025 REASON FOR EXAM: AAA, S/P EVAR, COIL OF ENDOLEAK TECHNIQUE: CTA ABD/PELVIS W/WO CONTRAST Multiplanar Sagittal and Coronal images were obtained. 3D and or MIPS post processing was performed CONTRAST: Isovue 370 VOLUME: 100 mL One or more dose reduction techniques were used (e.g., Automated exposure control, adjustment of the mA and/or kV according to patient size, use of iterative reconstruction technique). RADIATION DOSE SUMMARY: CTDlvol: 18.6 mGy DLP: 442.54 mGycm COMPARISON: Prior study dated January 18, 2025. FINDINGS: Aorta: Atherosclerotic plaque formation of the infrarenal abdominal aorta. Persistent aneurysmal dilatation of the [place] abdominal aorta with a transverse dimension of 51 mm. The patient is status post endoluminal stent grafting of the [place] abdominal aortic aneurysm with the proximal tip in the aorta and the distal tip in the common iliac arteries bilaterally. There is evidence of a coil seen along the left side of the distal aortic stent just proximal to the left common iliac artery. Metallic artifact is seen at that site. There is a 2.3 cm by 1.9 cm high density projected over the site of the stent on the left side. This may represent focal contrast accumulation. Iliac Arteries: Graft is patent. Extravascular Findings: Once again, there is a marked degree of splenomegaly. CT/CTA Abd/Pelvis W/WO Contrast IMPRESSION: Status post endoluminal stent grafting as described with coil placed in the distal portion of the abdominal aorta on the left side. Questionable localized contrast retention Reading Location: [place] [address] CC: Dr. Dustin Hawk MD; Dr. Dallas Reed MD Disc Recordist: Signed Normal [facility] MR/BMS.BVSon 04-18-2025 MR/BMS.BVS [facility] [address] [place] [address]. [address] [place] [address] OFFICE VISIT Date of Service: 04/18/25 MR#: [id number] Acct: [id number] Name: LEANA CAMEJO Rep #: [id number] : 1940 Provider: Dr. 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 [employer] Is patient in pain?: No Allergies lisinopril Allergy (Intermediate, Verified 04/18/25 16:29) Rash atorvastatin calcium (From Lipitor) Allergy (Verified 04/18/25 16:29) Other clonidine Allergy (Verified 04/18/25 16:29) Unknown rosuvastatin calcium (From Crestor) Allergy (Verified 04/18/25 16:29) Other Nqmqula-IDU-BmW Reductase Inhibitor (Hcgxfbd-Vlp-Enx Reductase Inhibitor) Allergy (Verified 07/30/25 16:29) Other Medications ???Medication ???Instructions ???Recorded ???Confirmed ???Type losartan 100 mg tablet 100 mg PO DAILY BP 05/17/19 History multivitamin 1 tab PO DAILY supplement 05/18/19 04/18/25 History ascorbic acid (vitamin C) 500 mg 1,000 mg PO DAILY supplement 02/1304/18/25 History capsule carvedilol 12.5 mg tablet 12.5 mg PO BID heart #180 tabs 04/18/25 Rx doxazosin 8 mg tablet 8 mg PO QHS prostate 05/23/2403/22 History hydralazine 100 mg tablet 100 mg PO TID blood pressure 05/2304/18/25 History magnesium oxide 400 mg (241.3 mg 400 mg PO DAILY supplement 4 04/18/25 History magnesium) tablet bempedoic acid 180 mg tablet 180 mg PO DAILY 07/11/24 04/18/25 History (Nexletol) ezetimibe 10 mg tablet 10 mg PO DAILY 07/11/24 04/18/25 H istory levothyroxine 25 mcg tablet 25 mcg PO DAILY 11/28/24 04/18/25 History cholecalciferol (vitamin D3) 125 125 mcg PO DAILY 01/12/25 04/18/25 History mcg (5,000 unit) tablet (Vitamin D3) ferrous sulfate 325 mg (65 mg 325 mg PO DAILY 01/12/25 04/18/25 History iron) tablet (Feosol) fluticasone propionate 50 1 spray intranasal QHS PRN nasal 0 01/12/25 04/18/25 History mcg/actuation nasal congestion spray,suspension nifedipine 60 mg tablet,extended 60 mg PO DAILY 01/12/25 04/18/25 H istory release Have you fallen in the past year?: Yes PFSH Medical History Spigelian hernia Wears hearing aid Wears glasses History of steroid therapy Arthritis History of renal disease TIA (transient ischemic attack) Ataxia History of echocardiogram Easy bruising History of IBS Former smoker History of stress test Cardiology follow-up encounter History of irregular heartbeat Preop cardiovascular exam Stenosis of right internal carotid artery Abdominal aortic 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 Essential hypertension Lumbar disc disease 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 Hyperlipidemia Diverticulosis Pre-operative cardiovascular examination Anemia 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, NYHA class 2 RSV (respiratory syncytial virus pneumonia) Shortness of breath Cough productive of purulent sputum Surgical History S/P spigelian hernia repair, follow-up exam S/P AAA repair ( 02/2025) History of right-sided carotid endarterectomy Hx of cataract surgery Hx of appendectomy History of tonsillectomy History of back surgery History of colonoscopy History of blepharoplasty History of inguinal hernia repair History of umbilical hernia repair 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 Family History Father Lung cancer Liver cancer Mother Oral cancer Social History household members: spouse Smoking Status: Former smoker second hand exposure: No alcohol intake: never substance use type: does not use caffeine: Yes Type: coffee Number of servings: 2 HPI HPI HPI: LEANA CAMEJO, is a 85 M who presents to the office today for follow up of prior EVAR with type II endoleak. I had attempted to access MUNDO via SMA to coil without success. He has since gone to [facility] where they were able to successfully coil what looks like aneurysm sac/pair lumbar arteries and MUNDO. He tolerated the procedure well with no access site concerns. ROS General General: Yes fatigue and weakness; No weight change, appetite, colon cancer or breast cancer (more content not included)... [facility] CNPTOUTREACHon 03-20-2025 [facility] 36on 03-19-2025 36 Spoke with patient t o follow up after endograft leak repair on 03/16. Patient reports they are doing well today. He has been feeling well and has no specific complaints. Denies any redness, swelling, or drainage from the procedure site. I advised that the patient follow up with the ordering doctor. We will also obtain a CTA in approximately 6 months to evaluate the graft. He would like to have this done at [facility] as it is much closer to home. I stated we will fax order to [place] and work to schedule imaging there. Patient expressed understanding and thanked me for calling. Normal [facility] BASIC METABOLIC PANELon 06-2 Anion gap [Moles/Vol] 8 mmol/L Normal 3-13 [facility] Comment on above: Performed By: #### L AB15 #### Runner Man: GUIDO JACOB ([id number]) [facility]) [address] [place] [address] Calcium [Mass/Vol] 9.1 mg/dL Normal 8.8-10.0 [facility] Comment on above: Performed By: #### L AB15 #### Runner Man: GUIDO JACOB ([id number]) [facility]) [address] [place] [address] Chloride [Moles/Vol] 103 mmol/L Normal 98-107 [facility] Comment on above: Performed By: #### L AB15 #### Runner Man: GUIDO JACOB ([id number]) [facility] ([facility]) [address] [place] [address] CO2 [Moles/Vol] 26 mmol/L Normal 23-31 [facility] Comment on above: Performed By: #### L AB15 #### Runner Man: GUIDO JACOB ([id number]) [facility]) [address] [place] [address] Creatinine [Mass/Vol] 1.72 mg/dL High 0.72-1.25 [facility] Comment on above: Performed By: #### L AB15 #### Runner Man: GUIDO JACOB ([id number]) [facility]) [address] [place] [address] GLOMERULAR FILTRATION RATE ML/MIN/1.73 SQ M.PREDICTED 38.5 mL/min/1.73m*2 Low >60.0 [facility] Comment on above: Result Comment: Calc ulation based on the Chronic Kidney Disease Epidemiology Collaboration (CKD-EPI) equation refit without adjustment for race Performed By: #### L AB15 #### Runner Man: GUIDO JACOB ([id number]) [facility] ([facility]) [address] [place] [address] Glucose [Mass/Vol] 108 mg/dL Normal 82-115 [facility] Comment on above: Performed By: #### L AB15 #### Runner Man: GUIDO JACOB ([id number]) [facility] ([facility]) [address] [place] [address] Potassium [Moles/Vol] 4.0 mmol/L Normal 3.5-5.1 [facility] Comment on above: Result Comment: [facility] potassium values may be up to 0.5 mmol/L lower than serum values. Performed By: #### L AB15 #### Runner Man: GUIDO JACOB ([id number]) [facility] ([facility]) [address] [place] [address] Sodium [Moles/Vol] 137 mmol/L Normal 136-145 [facility] Comment on above: Performed By: #### L AB15 #### Runner Man: GUIDO JACOB ([id number]) [facility] ([facility]) [address] [place] [address] Urea nitrogen [Mass/Vol] 49 mg/dL High 9-23 [facility] Comment on above: Performed By: #### L AB15 #### Runner Man: GUIDO JACOB ([id number]) [facility] ([facility]) [address] [place] [address] Basic metabolic 1998 panelon 03-16-2025 Anion gap [Moles/Vol] 8 mmol/L 3 - 13 mmol/L [facility] Calcium [Mass/Vol] 9.1 mg/dL 8.8 - 10. 0 mg/dL [facility] Chloride [Moles/Vol] 103 mmol/L 98 - 10 7 mmol/L [facility] CO2 [Moles/Vol] 26 mmol/L 23 - 31 mmol/L [facility] Creatinine [Mass/Vol] 1.72 mg/dL High 0.72 - 1.25 mg/dL [facility] GFR/1.73 sq M.predicted (S/P/Bld) [Vol rate/Area] 38.5 mL/min Low - PINF [facility] Comment on above: Calculation based on the Chronic Kidney Disease Epidemiology Collaboration (CKD-EPI) equation refit without adjustment for race Glucose [Mass/Vol] 108 mg/dL 82 - 115 mg/dL [facility] Interpretation and review of laboratory results Abnormal [facility] Potassium [Moles/Vol] 4 mmol/L 3.5 - 5.1 mmol/L [facility] Comment on above: Plasma potassium cynthia ues may be up to 0.5 mmol/L lower than serum values. Sodium [Moles/Vol] 137 mmol/L 136 - 145 mmol/L [facility] Urea nitrogen [Mass/Vol] 49 mg/dL High 9 - 23 mg/dL [facility] CBC (HEMOGRAM)on 03-16-2025 Erythrocyte distribution width (RBC) [Ratio] 14.9 % Normal 11.5-15.0 [facility] Comment on above: Performed By: #### L AB294 #### Runner Man: GUIDO JACOB ([id number]) [facility]) [address] [place] [address] Hematocrit (Bld) [Volume fraction] 31.7 % Low 40.0-52.0 [facility] Comment on above: Performed By: #### L AB294 #### Runner Man: GUIDO JACOB ([id number]) [facility]) [address] [place] [address] Hemoglobin (Bld) [Mass/Vol] 10.2 g/dL Low 13.0-18.0 [facility] Comment on above: Performed By: #### L AB294 #### Runner Man: GUIDO JACOB ([id number]) [facility] ([facility]) [address] [place] [address] [place] IPF 3 Normal [facility] Comment on above: Performed By: #### L AB294 #### Runner Man: GUIDO JACOB ([id number]) [facility] ([facility]) [address] [place] [address] MCH (RBC) [Entitic mass] 29.9 pg Normal 26.0-34.0 [facility] Comment on above: Performed By: #### L AB294 #### Runner Man: GUIDO JACOB ([id number]) [facility]) [address] [place] [address] MCHC 32.2 % Normal 30.5-36.0 [facility] Comment on above: Performed By: #### L AB294 #### Runner Man: GUIDO JACOB ([id number]) [facility] ([facility]) [address] [place] [address] MCV (RBC) [Entitic vol] 93.0 fL Normal 77.0-99.0 [facility] Comment on above: Performed By: #### L AB294 #### Runner Man: GUIDO JACOB ([id number]) [facility]) [address] [place] [address] Platelet mean volume (Bld) [Entitic vol] 11.0 fL Normal 9.0-12.7 [facility] Comment on above: Performed By: #### L AB294 #### Runner Man: GUIDO JACOB ([id number]) [facility] ([facility]) [address] [place] [address] Platelets (Bld) [#/Vol] 87 10*3/uL Low 140-440 [facility] Comment on above: Performed By: #### L AB294 #### Runner Man: GUIDO JACOB ([id number]) [facility]) [address] [place] [address] RBC (Bld) [#/Vol] 3.41 10*6/uL Low 4.40-5.90 [facility] Comment on above: Performed By: #### L AB294 #### Runner Man: GUIDO JACOB ([id number]) [facility]) [address] [place] [address] WBC (Bld) [#/Vol] 4.4 10*3/uL Normal 3.6-10.7 [facility] Comment on above: Performed By: #### L AB294 #### Runner Man: GUIDO JACOB ([id number]) [facility] [address] [place] [address] CBC panel Auto (Bld)Ordered By: Lourdes Boothe on 03-16-2025 Erythrocyte distribution width (RBC) [Ratio] 14.9 % 11.5 - 15.0 % [facility] Hematocrit (Bld) [Volume fraction] 31.7 % Low 40.0 - 52.0 % [facility] Hemoglobin (Bld) [Mass/Vol] 10.2 g/dL Low 13.0 - 18.0 g/dL [facility] Interpretation and review of laboratory results Abnormal [facility] IPF 3 [facility] MCH (RBC) [Entitic mass] 29.9 pg 26.0 - 34.0 pg [facility] MCHC (RBC) [Mass/Vol] 32.2 % 30.5 - 36.0 % [facility] MCV (RBC) [Entitic vol] 93 fL 77.0 - 99.0 fL [facility] Platelet mean volume (Bld) [Entitic vol] 11 fL 9.0 - 12.7 fL [facility] Platelets (Bld) [#/Vol] 87 10*3/uL Low 140 - 440 10*3/uL [facility] RBC (Bld) [#/Vol] 3.41 10*6/uL Low 4.40 - 5.9 0 10*6/uL [facility] WBC (Bld) [#/Vol] 4.4 10*3/uL 3.6 - 10.7 10*3/uL [facility] Laboratory - Coagulationon 0 03-16-2025 PT Coag (Bld) [Time] 12.1 s High 9.0 - 12.0 s [facility] Nursing Noteon 03-16-2025 Nursing Note Hemostasis achieved Normal [facility] Nursing Note Third coil deployed Normal [facility] Nursing Note Second coil deployed Normal [facility] Nursing Note First coil deployed Normal [facility] Nursing Note Patient arrived from IR prep 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 Dr. Bobo in to speak with the patient regarding procedure, and consent was obtained. Patient's lab values and allergies were reviewed. Patient was placed supine on exam table, prepped and draped in sterile fashion. Telemetry monitors were placed. Normal [facility] PROTHROMBIN TIMEon INR Coag (PPP) [Relative time] 1.1 {INR} Normal 0.9-1.1 [facility] Comment on above: Result Comment: Irving mmended Anticoagulant Therapy: SEE BELOW ----- INR of 2.0 - 3.0 : - Prophylaxis of Venous Thrombosis (high-risk surgery) - Treatment of Venous Thrombosis - Treatment of Pulmonary Embolism (Includes tissue heart valves, Acute Myocardial Infarction to prevent systemic embolism, Valvular Heart Disease, and Atrial Fibrillation) ----- INR of 2.5 - 3.5 : - Mechanical Prosthetic Valves (high risk) - If oral anticoagulant therapy is used to prevent Myocardial Infarction Performed By: #### L AB320 #### Runner Man: GUIDO JACOB ([id number]) [facility] ([facility]) [address] [place] [address] PT Coag (PPP) [Time] 12.1 s High 9.0-12.0 [facility] Comment on above: Performed By: #### Yong AB320 #### Runner Man: GUIDO JACOB ([id number]) [facility] ([facility]) [address] [place] [address] [place] PT Coag (Bld) [Time]on 03-16 INR Coag (PPP) [Relative time] 1.1 {INR} 0.9 - 1.1 [facility] Comment on above: Recommended Anticoag ulant Therapy: SEE BELOW ----- INR of 2.0 - 3.0 : - Prophylaxis of Venous Thrombosis (high-risk surgery) - Treatment of Venous Thrombosis - Treatment of Pulmonary Embolism (Includes tissue heart valves, Acute Myocardial Infarction to prevent systemic embolism, Valvular Heart Disease, and Atrial Fibrillation) ----- INR of 2.5 - 3.5 : - Mechanical Prosthetic Valves (high risk) - If oral anticoagulant therapy is used to prevent Myocardial Infarction Interpretation and review of laboratory results Abnormal [facility] CNOVon 03-12-2025 CNOV Normal [facility] T4 Free SerPl-mCncon 025 Free T4 [Mass/Vol] 1.1 ng/dL Normal 0.9-1.7 [facility] Comment on above: Order Comment: Speci men Type: BLOOD SPECIMENOrdering Facility: [facility] Address: [address] [place], [place] [address] [address] Performed By: #### 3 024-7, 3016-3 ####[facility] LABCLIA [id number] [place] [id number] [place] TSH SerPl-aCncon 03-12-2025 TSH Qn 11.300 m[IU]/L High 0.270-4.200 [facility] Comment on above: Order Comment: Speci men Type: BLOOD SPECIMENOrdering Facility: [facility] Address: [address] [place], [place] [address] [address] Performed By: #### 3 024-7, 6-3 ####[facility] LABCLIA [id number] [place] [address] [place] CNPTOUTREACHon 03-02-2025 CNPTOUTREACH Normal [facility] MR/BMS.BVSon 02-27-2025 MR/BMS.BVS [facility] [address] [place] [address] OFFICE VISIT Date of Service: 02/27/25 MR#: [id number] Acct: [id number] Name: LEANA CAMEJO Rep #: [id number] 3 : 1940 Provider: CHRIS Orellana Age/Sex: 85/M Location: [facility] Status: Signed Intake Vital Signs 01/12/25 10:30 02/14/25 09:53 02/27/25 14:48 Height 5 ft 8 in 5 ft 8 in Weight: 143 lb BP 123/72 H Blood Pressure Location Lt brachial Position Sitting Respiration 16 Pulse 60 Pulse Source Monitor Temp 97.5 F L Temp Source Temporal Pulse Oximetry (%) 100 Oxygen Delivery Method room air Intake Visit Reasons: Post Aortogram 2-4 WK FU Is patient in pain?: No Allergies lisinopril Allergy (Intermediate, Verified 02/27/25 14:49) Rash atorvastatin calcium (From Lipitor) Allergy (Verified 02/27/25 14:49) Other clonidine Allergy (Verified 02/27/25 14:49) Unknown rosuvastatin calcium (From Crestor) Allergy (Verified 02/27/25 14:49) Other Tecvibj-SEU-IjY Reductase Inhibitor (Qmubulm-Xtc-Mwg Reductase Inhibitor) Allergy (Verified 02/27/25 14:49) Other Medications ???Medication ???Instructions ???Recorded ???Confirmed ???Type losartan 100 mg tablet 100 mg PO DAILY BP 05/17/19 History multivitamin 1 tab PO DAILY supplement 05/18/19 02/27/25 History ascorbic acid (vitamin C) 500 mg 1,000 mg PO DAILY supplement 02/1302/27/25 History capsule carvedilol 12.5 mg tablet 12.5 mg PO BID heart #180 tabs 02/27/25 Rx doxazosin 8 mg tablet 8 mg PO QHS prostate 05/23/2402/18 History hydralazine 100 mg tablet 100 mg PO TID blood pressure 05/2302/27/25 History magnesium oxide 400 mg (241.3 mg 400 mg PO DAILY supplement 02/27/25 History magnesium) tablet aspirin 81 mg chewable tablet 81 mg PO BREAKFAST 30 days #30 tab s 05/24/24 02/27/25 Rx bempedoic acid 180 mg tablet 180 mg PO DAILY 07/11/24 02/27/25 History (Nexletol) ezetimibe 10 mg tablet 10 mg PO DAILY 07/11/24 02/27/25 H istory levothyroxine 25 mcg tablet 25 mcg PO DAILY 11/28/24 02/27/25 History amoxicillin 875 mg-potassium 875 mg PO Q12H #20 TABLETS 5 02/27/25 Rx clavulanate 125 mg tablet cholecalciferol (vitamin D3) 125 125 mcg PO DAILY 01/12/25 02/27/25 History mcg (5,000 unit) tablet (Vitamin D3) ferrous sulfate 325 mg (65 mg 325 mg PO DAILY 01/12/25 02/27/25 History iron) tablet (Feosol) fluticasone propionate 50 1 spray intranasal QHS PRN nasal 0 01/12/25 02/27/25 History mcg/actuation nasal congestion spray,suspension nifedipine 60 mg tablet,extended 60 mg PO DAILY 01/12/25 02/27/25 H istory release Have you fallen in the past year?: Yes PFSH Medical History Spigelian hernia Wears hearing aid Wears glasses History of steroid therapy Arthritis History of renal disease TIA (transient ischemic attack) Ataxia History of echocardiogram Easy bruising History of IBS Former smoker History of stress test Cardiology follow-up encounter History of irregular heartbeat Preop cardiovascular exam Stenosis of right internal carotid artery Abdominal aortic 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 Essential hypertension Lumbar disc disease 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 Hyperlipidemia Diverticulosis Pre-operative cardiovascular examination Anemia 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, NYHA class 2 RSV (respiratory syncytial virus pneumonia) Shortness of breath Cough productive of purulent sputum Surgical History S/P spigelian hernia repair, follow-up exam S/P AAA repair History of right-sided carotid endarterectomy Hx of cataract surgery Hx of appendectomy History of tonsillectomy History of back surgery History of colonoscopy History of blepharoplasty History of inguinal hernia repair History of umbilical hernia repair 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 Family History Father Lung cancer Liver cancer Mother Oral cancer Social History household members: spouse Smoking Status: Former smoker second hand exposure: No alcohol intake: never substance use type: does not use caffeine: Yes Type: coffee Number of servings: 2 HPI HPI HPI: LEANA CAMEJO, is a 85 M who presents to the office today for follow-up s/p aortogram with unsuccessful attempt at canalizing SMA for coiling to address endoleak via both radial and femoral access. His radial and femoral access sites are well-healing, bruising is res (more content not included)... Normal [facility] CNPTOUTREACHon 02-26-2025 CNPTOUTREA Normal [facility] CNPTOUTREACHon 02-19-2025 CNPTOUTREA Normal [facility] Anion gap in Serum or Plasma Ordered By: Dustin Hawk on 02-14-2025 Anion gap [Moles/Vol] 12 mmol/L 5-15 [facility] BUN/creatinine ratioOrdered By: Dustin Hawk on 02-14-2025 Urea nitrogen/Creatinine [Mass ratio] 28.6 mg/mg High 10-20 [facility] Basic Metabolic Profile (BMP )on 02-14-2025 BUN/CRE 28.6 RATIO High 10- [facility] Comment on above: Performed By: #### L 500.2500, L100.0500 ####[facility] [address] [place], [address] Calcium [Mass/Vol] 9.5 mg/dL Normal 7.6-11.0 [facility] Comment on above: Performed By: #### L 500.2500, L100.0500 ####[facility] [address] [place], [address] Chloride [Moles/Vol] 102 mmol/L Normal 98-108 [facility] Comment on above: Performed By: #### L 500.2500, L100.0500 ####[facility] [address] [place], [address] CO2 [Moles/Vol] 25.1 mmol/L Normal 21.0-32.0 [facility] Comment on above: Performed By: #### L 500.2500, L100.0500 ####[facility] [address] [place], [address] Creatinine [Mass/Vol] 1.73 mg/dL High 0.70-1.20 [facility] Comment on above: Performed By: #### L 500.2500, L100.0500 ####[facility] [address] [place], [address] ECRCL 29.64 ml/min Low 50-250 [facility] Comment on above: Performed By: #### L 500.2500, L100.0500 ####[facility] [address] [place] [place], [address] GAP 12 Normal 5-15 [facility] Comment on above: Performed By: #### L 500.2500, L100.0500 ####[facility] [address] [place], [address] GFR/1.73 sq M.predicted among non-blacks MDRD (S/P/Bld) [Vol rate/Area] 38 mL/min/{1.73_m2} Low >60 [facility] Comment on above: Result Comment: mL/m in/1.73m2 CKD-EPI Creatinine Equation (2020) Performed By: #### L 500.2500, L100.0500 ####[facility] [address] [place], [address] Glucose [Mass/Vol] 110 mg/dL High 70-99 [facility] Comment on above: Performed By: #### L 500.2500, L100.0500 ####[facility] [address] [place], [address] Potassium [Moles/Vol] 4.5 mmol/L Normal 3.3-5.1 [facility] Comment on above: Performed By: #### L 500.2500, L100.0500 ####[facility] [address] [place], [address] Sodium [Moles/Vol] 139 mmol/L Normal 133-145 [facility] Comment on above: Performed By: #### L 500.2500, L100.0500 ####[facility] [address] [place], [address] Urea nitrogen [Mass/Vol] 50 mg/dL High 4-19 [facility] Comment on above: Performed By: #### L 500.2500, L100.0500 ####[facility] [address] [place], [address] CBC-Complete Blood Cnt No Patricia ffon 02-14-2025 Erythrocyte distribution width (RBC) [Ratio] 15.0 % High 11.6-14.6 [facility] Comment on above: Performed By: #### L 500.2500, L100.0500 ####[facility] [address] [place], [address] Hematocrit (Bld) [Volume fraction] 35.2 % Low 40-54 [facility] Comment on above: Performed By: #### L 500.2500, L100.0500 ####[facility] [address] [place], [address] Hemoglobin (Bld) [Mass/Vol] 11.6 g/dL Low 13.0-16.5 [facility] Comment on above: Performed By: #### L 500.2500, L100.0500 ####[facility] [address] [place], [address] MCH (RBC) [Entitic mass] 30.6 pg Normal 27.0-32.0 [facility] Comment on above: Performed By: #### L 500.2500, L100.0500 ####[facility] [address] [place], [address] MCHC (RBC) [Mass/Vol] 33.0 g/dL Normal 32-36 [facility] Comment on above: Performed By: #### L 500.2500, L100.0500 ####[facility] [address] [place], [address] MCV (RBC) [Entitic vol] 92.9 fL Normal 80-94 [facility] Comment on above: Performed By: #### L 500.2500, L100.0500 ####[facility] [address] [place], [address] Platelet mean volume (Bld) [Entitic vol] 11.1 fL Normal 6.2-12.0 [facility] Comment on above: Performed By: #### L 500.2500, L100.0500 ####[facility] [address] [place], [address] Platelets (Bld) [#/Vol] 113 10*3/uL Low 150-450 [facility] Comment on above: Performed By: #### L 500.2500, L100.0500 ####[facility] [address] [place], [address] RBC (Bld) [#/Vol] 3.79 10*6/uL Low 4.6-6.2 [facility] Comment on above: Performed By: #### L 500.2500, L100.0500 ####[facility] [address] [place], [address] RDW SD 51.3 fl High 35.1-43.9 [facility] Comment on above: Performed By: #### L 500.2500, L100.0500 ####[facility] [address] [place], [address] WBC (Bld) [#/Vol] 6.0 10*3/uL Normal 4.4-11.0 [facility] Comment on above: Performed By: #### L 500.2500, L100.0500 ####[facility] [address] [place], [address] Carbon dioxide, total [Moles /volume] in Central venous bloodOrdered By: Dustin Hawk on 02-14-2025 CO2 [Moles/Vol] 25.1 mmol/L 21.0-32.0 [facility] Chloride assayOrdered By: Johnathan Hawk on 02-14-2025 Chloride [Moles/Vol] 102 mmol/L 98-108 [facility] Erythrocyte distribution wid th ratioOrdered By: Dustin Hawk on 02-14-2025 Erythrocyte distribution width (RBC) [Ratio] 15.0 % High 11.6-14.6 [facility] Erythrocyte distribution wid th standard deviationOrdered By: Dustin Hawk on 02-14-2025 Erythrocyte distribution width (RBC) [Ratio] 51.3 fl High 35.1-43.9 [facility] Glomerular filtration rate ( GFR) estimation/1.73 sq m using serum, plasma, or whole bOrdered By: Dustincatracho Hawk on 02-14-2025 GFR/1.73 sq M.predicted among non-blacks MDRD (S/P/Bld) [Vol rate/Area] 38 mL/min/{1.73_m2} Low >60 [facility] Comment on above: mL/min/1.73m2 CKD-EP I Creatinine Equation (2020) Hematocrit Auto (Bld) [Volum e fraction]Ordered By: Dustin Hawk on 02-14-2025 Hematocrit (Bld) [Volume fraction] 35.2 % Low 40-54 [facility] Hemoglobin measurementOrdere d By: Dustin Hawk on 02-14-2025 Hemoglobin (Bld) [Mass/Vol] 11.6 g/dL Low 13.0-16.5 [facility] MCV (mean corpuscular volume ) determinationOrdered By: [facility] Waldo on 02-14-2025 MCV (RBC) [Entitic vol] 92.9 fL 80-94 [facility] Mean corpuscular hemoglobin (MCH) determinationOrdered By: [facility] Waldo on 02-14-2025 MCH (RBC) [Entitic mass] 30.6 pg 27.0-32.0 [facility] Mean corpuscular hemoglobin concentration (MCHC) determinationOrdered By: Dustincatracho Hawk on 02-14-2025 MCHC (RBC) [Mass/Vol] 33.0 g/dL 32-36 [facility] Mean platelet volume determi nationOrdered By: Dustincatracho Hawk on 02-14-2025 Platelet mean volume (Bld) [Entitic vol] 11.1 fL 6.2-12.0 [facility] Operative Reporton Operative Report [facility] Medical Records Department [address] [place] [address] Operative Report 02/14/25 1613 MR#: [id number] Acct: [id number] Name: LEANA CAMEJO Rep #: [id number] : 1940 85 From: Dustin Hawk MD PCP: Dr. 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 This had been followed with serial imaging with initially no significant aneurysm sac growth however over the last several imaging studies there has been significant growth noted. He is taken now for angiogram with an effort to coil the inferior mesenteric artery via accessing the superior mesenteric artery and the arc of Riolan. Description of procedure: Upon obtaining informed consent and verification correct patient procedure and site the patient taken to the [employer] he was positioned prepped and draped in usual sterile fashion. Timeout was performed and conscious sedation ministered Versed and fentanyl. Initial efforts were planned from radial access in an effort to improve the work angle with a superior mesenteric artery. Skin overlying the right radial artery was anesthetized with 1% lidocaine the vessel accessed with a micropuncture needle wire to then exchanged for a 6 Guinean radial sheath. Through this verapamil, nitro, and heparin were infused. Next Bentson wire and a KMP catheter were advanced navigating through the excellent brachial arteries and into the aortic arch. We then navigated the arch and into the descending thoracic aorta advancing wire and catheter to the hub. The 100 cm catheter reached approximately midway through the thoracic aorta likely due to tortuosity within the arch in the proximal thoracic aorta. Given the distance to the superior mesenteric artery let alone navigating the branches to access the inferior mesenteric artery it was felt that we had no chance to complete intervention from the radial access. Next skin overlying the right common femoral artery was anesthetized with 1% lidocaine and the vessel accessed under ultrasound guidance with a micropuncture needle wire. This then exchanged for micropuncture sheath through which hand-injection iliofemoral angiograms performed revealing satisfactory position with no extravasation or dissection. Through the micropuncture sheath Bentson wires advanced the micropuncture sheath exchanged for a short 6 Guinean sheath. Through a 6 Guinean sheath Bentson wire was advanced into the abdominal aorta and a straight flush catheter advanced to the visceral segment and subtraction aortogram performed with oblique views in an effort to identify the origin of the superior mesenteric artery. Patient had an abnormally low superior mesenteric artery origin just above the renal arteries and in close proximity to the endograft. The Bentson wire was then readvanced and the short 6 Guinean sheath in flush catheter exchanged for a 6 Guinean Ansell 2 sheath and utilizing this along with a Glidewire and the angled catheter efforts were made to engage the superior mesenteric artery. Ultimately were able to get the Glidewire into the supra mesenteric artery but we were unable to advance any catheters. Multiple varying catheter and sheath shapes were utilized including an Ansell 1, and MUNDO catheter, and MUNDO guide with an angled glide catheter all of which failed to both access the superior mesenteric artery and obtain sufficient purchase to advance into the vessel. After exhausting reasonable efforts we felt that no further efforts were warranted so the long 6 Guinean sheath was exchanged for a short 6 Guinean sheath and a minx closure device deployed followed by manual pressure. After releasing manual pressure was noted there was hematoma forming so prolonged manual pressure was held and the patient taken the recovery area with planned discharge home after prolonged bedrest. Surgical Findings: See above Complications Complications: No 02/14/25 1621 Cosigner Signature (if applicable): CC: Dr. Dustin Hawk MD; Dr. Dallas Reed MD Signed Normal [facility] Platelet countOrdered By: Johnathan Hawk on 02-14-2025 Platelets (Bld) [#/Vol] 113 10*3/uL Low 150-450 [facility] Potassium measurement (mass/ volume)Ordered By: Dustin Hawk on 02-14-2025 Potassium (Unsp spec) [Mass/Vol] 4.5 mmol/L 3.3-5.1 [facility] RBC Auto (Bld) [#/Vol]Ordere d By: Dustin Hawk on 02-14-2025 RBC (Bld) [#/Vol] 3.79 10*6/uL Low 4.6-6.2 [facility] Serum creatinine measurement (mass/volume)Ordered By: Dustin Waldo on 02-14-2025 Creatinine [Mass/Vol] 1.73 mg/dL High 0.70-1.20 [facility] Serum glucose measurement (m ass/volume)Ordered By: Dustin [place] on 02-14-2025 Glucose [Mass/Vol] 110 mg/dL High 70-99 [facility] Serum or plasma calcium jossie urement (mass/volume)Ordered By: Dustin Waldo on 02-14-2025 Calcium [Mass/Vol] 9.5 mg/dL 7.6-11.0 [facility] Serum or plasma urea nitroge n measurement (mass/volume)Ordered By: Dustin [place] on 02-14-2025 Urea nitrogen [Mass/Vol] 50 mg/dL High 4-19 [facility] Sodium levelOrdered By: Dustin Waldo on 02-14-2025 Sodium [Moles/Vol] 139 mmol/L 133-145 [facility] White blood cell (WBC) count Ordered By: Dustin Kelleyey on 02-14-2025 WBC (Bld) [#/Vol] 6.0 10*3/uL 4.4-11.0 [facility] CNPTOUTREACHon 02-01-2025 CNPTOUTREACH Normal [facility] CTA Abd/Pelvis W/WO Contrast on 01-18-2025 CTA Abd/Pelvis W/WO Contrast [facility] Imaging Services [address] [place] [id number] CTA Abd/Pelvis W/WO Contrast MR#: [id number] Acct: [id number] Name: LEANA CAMEJO Rep #: [id number] : 1940 M 85 From: Yaneth Alexander nd, MD PCP: Dr. Dallas Reed MD Status: REG CLI Study: CTA Abd/Pelvis W/WO Contrast Date of Exam: 10/14 Exam# [id number] Ordering Dr: Carine Noble PROCEDURE: CTA ABD/PELVIS W/WO CONTRAST 01/18/2025 REASON FOR EXAM: AAA S/P EVAR, TYPE II ENDOLEAK, SURVEILLANCE TECHNIQUE: CTA imaging of the abdomen and pelvis with and without intravenous contrast. Noncontrast, arterial, and venous phase imaging was obtained. Multiplanar and multisequence images were obtained. CONTRAST: Isovue-300 VOLUME: 100 ML One or more dose reduction techniques were used (e.g., Automated exposure control, adjustment of the mA and/or kV according to patient size, use of iterative reconstruction technique). RADIATION DOSE SUMMARY: CTDlvol: 50 mGy DLP: 1500 mGycm COMPARISON: CT abdomen pelvis 01/12/2025, CTA abdomen pelvis 12/27/2023. FINDINGS: Lung bases: Emphysema with bibasilar atelectasis/scarring. Moderate cardiomegaly and coronary artery and aortic valvular calcifications. Liver: The liver is normal in size without focal hepatic mass. The major portal veins are patent. No biliary ductal dilation. Gallbladder: No radiopaque stones within the gallbladder. Spleen: Severe splenomegaly measuring 18.3 cm. Pancreas: Atrophic pancreas. Small cyst within the pancreatic neck (series 4, image 59), without obvious communication with the main pancreatic duct. Adrenals: No adrenal mass. Kidneys: Mild symmetric renal cortical atrophy. Small bilateral renal cysts and additional hypodensities. Calcification, likely vascular. No hydronephrosis. Bladder: The urinary bladder is distended with large right posterior diverticulum. Reproductive Organs: Mildly enlarged prostate. Visualization of the pelvis is limited by streak artifact. Bowel: The bowel loops are nondilated. No ascites or pneumoperitoneum. No inflammatory mass in the expected region of the appendix. Severe colonic diverticulosis with diffuse wall thickening of the sigmoid colon. No obvious inflamed diverticula visualized. Lymph nodes: No suspicious lymph node enlargement. Bones: Prior right total hip arthroplasty. Degenerative changes throughout the thoracolumbar spine. Vasculature: Prior infrarenal aorto bi-iliac stent grafting. Increased size of the excluded abdominal aortic aneurysm measuring up to 6.5 cm (series 4, image 78), previously measuring 6.1 cm in 2023, and 5.4 cm in 2022 when measured in a similar fashion. 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 Stable ectasia of the bilateral common iliac arteries. Mild to moderate mixed atherosclerotic plaque throughout the bilateral common, internal and external iliac arteries. Calcific plaque of the celiac trunk, SMA and bilateral renal arteries resulting in moderate narrowing at their origins. CT/CTA Abd/Pelvis W/WO Contrast IMPRESSION: 1. Prior infrarenal aorto bi-iliac stent grafting with continued increased size in the type IIa inferior mesenteric artery endoleak as described. Consultation with vascular surgery or interventional radiology is recommended. 2. Severe colonic diverticulosis with diffuse wall thickening of the sigmoid colon. No obvious inflamed diverticula. Correlation with patient symptoms recommended. 3. Persistent severe splenomegaly. Reading Location: [facility] CC: CHRIS Orellana; Dr. Dallas Reed MD Disc Recordist: Signed Normal [facility] CNPTOUTREACHon 01-17-2025 CNPTOUTREACH Normal [facility] Abdomen/Pelvis W IV Cont ONL Yon 01-12-2025 Abdomen/Pelvis W IV Cont ONLY [facility] Imaging Services [address] [place] [address] Abdomen/Pelvis W IV Cont ONLY MR#: [id number] Acct: [id number] Name: LEANA CAMEJO Rep #: [id number] : 1940 M 85 From: Jw leo MD PCP: Dr. Dallas Reed MD Status: REG ER Study: Abdomen/Pelvis W IV Cont ONLY Date of Exam: Exam# [id number] Ordering Dr: Hernandez King MD PROCEDURE: ABDOMEN/PELVIS W IV CONT ONLY 01/12/2025 REASON FOR EXAM: LEFT LOWER QUADRANT ABDOMINAL PAIN WITH GUARDING TECHNIQUE: Abdomen and pelvis CT with intravenous contrast. Coronal and Sagittal reconstruction series were provided. PATIENT PREPARATION: Per protocol ORAL CONTRAST TYPE: None. CONTRAST: Isovue-300 VOLUME: 100 mL One or more dose reduction techniques were used (e.g., Automated exposure control, adjustment of the mA and/or kV according to patient size, use of iterative reconstruction technique. RADIATION DOSE SUMMARY: CTDlvol: 11.5 mGy DLP: 503.73 mGycm COMPARISON: Comparison is made with prior study dated November 28, 2024. FINDINGS: Lung bases: Stable mild increased markings at the lung bases suggestive of scarring. Calcific granuloma in the peripheral aspect of the right lower lobe. Coronary artery calcification. Liver: Diffuse fatty infiltration. Gallbladder: Unremarkable. Spleen: Atnbsfqf-ko-zmzimz degree of splenomegaly. This is unchanged. Pancreas: Diffuse fatty atrophy. Adrenals: Unremarkable. Kidneys: Mild degree of bilateral renal atrophy. Bladder: Distended urinary bladder. Stable 4.3 cm bladder diverticulum in the posterior right side of the bladder. There is evidence of prior TURP. Bowel: Sigmoid diverticulosis. Mild degree of increased markings in the surrounding peritoneal fat. Non complicated diverticulitis should be ruled out. Appendix: The appendix is not identified. There is no inflammatory process identified in the right lower quadrant to suggest appendicitis. Lymph nodes: No evidence of retroperitoneal lymph nodes. Vasculature: Infrarenal abdominal aortic aneurysm with endoluminal stent graft. The transverse dimension of the aortic aneurysm measures 6.1 cm. Mural thrombus is seen. Endoluminal stent is seen. Stable endoluminal leak type 2. No evidence of retroperitoneal hematoma. This is unchanged as compared to prior study. Peritoneum / Retroperitoneum: Unremarkable Bones: Degenerative changes of the spine. Status post right total hip replacement. CT/Abdomen/Pelvis W IV Cont ONLY IMPRESSION: Aneurysmal dilatation of the abdominal aorta within the evidence of endoluminal leak. This is unchanged. Sigmoid diverticula. Mild degree of increased inflammatory changes in the sigmoid mesentery suggestive of early sigmoid diverticulitis. The remainder of the examination is unchanged. Reading Location: [place] [address] CC: Dr. Hernandez King MD; Dr. Dallas Reed MD Disc Recordist: Signed Normal [facility] Absolute lymphocyte countOrd ered By: Hernandez King on 01-12-2025 Lymphocytes Auto (Unsp spec) [#/Vol] 1.16 10*3/uL 0.83-4.51 [facility] Absolute neutrophil countOrd ered By: Hernandez King on 01-12-2025 Neutrophils (Bld) [#/Vol] 3.3 10*3/uL 2.0-7.7 [facility] Anion gap in Serum or Plasma Ordered By: Hernandez King on 01-12-2025 Anion gap [Moles/Vol] 11 mmol/L 5-15 [facility] Automated lymphocyte count a s percentage of total leukocytesOrdered By: Hernandez King on 01-12-2025 Lymphocytes/100 WBC Auto (Unsp spec) 22.3 % 19-41 [facility] BUN/creatinine ratioOrdered By: Hernandez King on 01-12-2025 Urea nitrogen/Creatinine [Mass ratio] 24.7 mg/mg High 10-20 [facility] Basic Metabolic Profile (BMP )on 01-12-2025 BUN/CRE 24.7 RATIO High - [facility] Comment on above: Performed By: #### L 100.0100, L500.2500 ####[facility] [address] [place], [address] Calcium [Mass/Vol] 8.8 mg/dL Normal 7.6-11.0 [facility] Comment on above: Performed By: #### L 100.0100, L500.2500 ####[facility] [address] [place], [address] Chloride [Moles/Vol] 102 mmol/L Normal 98-108 [facility] Comment on above: Performed By: #### L 100.0100, L500.2500 ####[facility] [address] [place], [address] CO2 [Moles/Vol] 24.7 mmol/L Normal 21.0-32.0 [facility] Comment on above: Performed By: #### L 100.0100, L500.2500 ####[facility] [address] [place], [address] Creatinine [Mass/Vol] 1.54 mg/dL High 0.70-1.20 [facility] Comment on above: Performed By: #### L 100.0100, L500.2500 ####[facility] [address] [place], [address] ECRCL 33.25 ml/min Low 50-250 [facility] Comment on above: Performed By: #### L 100.0100, L500.2500 ####[facility] [address] [place] [place], [address] GAP 11 Normal 5-15 [facility] Comment on above: Performed By: #### L 100.0100, L500.2500 ####[facility] [address] [place], [address] GFR/1.73 sq M.predicted among non-blacks MDRD (S/P/Bld) [Vol rate/Area] 44 mL/min/{1.73_m2} Low >60 [facility] Comment on above: Result Comment: mL/m in/1.73m2 CKD-EPI Creatinine Equation (2020) Performed By: #### L 100.0100, L500.2500 ####[facility] [address] [place], [address] Glucose [Mass/Vol] 93 mg/dL Normal 70-99 [facility] Comment on above: Performed By: #### L 100.0100, L500.2500 ####[facility] [address] [place], [address] Potassium [Moles/Vol] 3.9 mmol/L Normal 3.3-5.1 [facility] Comment on above: Performed By: #### L 100.0100, L500.2500 ####[facility] [address] [place], [address] Sodium [Moles/Vol] 138 mmol/L Normal 133-145 [facility] Comment on above: Performed By: #### L 100.0100, L500.2500 ####[facility] [address] [place] [place], [address] Urea nitrogen [Mass/Vol] 38 mg/dL High 4-19 [facility] Comment on above: Performed By: #### L 100.0100, L500.2500 ####[facility] [address] [place], [address] Basophil percentageOrdered B y: Hernandez King on 01-12-2025 Basophils/100 WBC (Bld) 0.8 % 0-1 [facility] CBC W/Diff, Automatedon 12-20 Absolute Lymph 1.16 X10 3/uL Normal 0.83-4.51 [facility] Comment on above: Performed By: #### L 100.0100, L500.2500 ####[facility] [address] [place], [address] Absolute Neut 3.3 X10 3/uL Normal 2.0-7.7 [facility] Comment on above: Performed By: #### L 100.0100, L500.2500 ####[facility] [address] [place], [address] Basophils/100 WBC (Bld) 0.8 % Normal 0-1 [facility] Comment on above: Performed By: #### L 100.0100, L500.2500 ####[facility] [address] [place], [address] Eosinophils/100 WBC (Bld) 3.5 % Normal 0-5 [facility] Comment on above: Performed By: #### L 100.0100, L500.2500 ####[facility] [address] [place], [address] Erythrocyte distribution width (RBC) [Ratio] 14.8 % High 11.6-14.6 [facility] Comment on above: Performed By: #### L 100.0100, L500.2500 ####[facility] [address] [place], [address] Hematocrit (Bld) [Volume fraction] 35.6 % Low 40-54 [facility] Comment on above: Performed By: #### L 100.0100, L500.2500 ####[facility] [address] [place], [address] Hemoglobin (Bld) [Mass/Vol] 11.5 g/dL Low 13.0-16.5 [facility] Comment on above: Performed By: #### L 100.0100, L500.2500 ####[facility] [address] [place], [address] IG% 0.400 Normal 0.0-0.9 [facility] Comment on above: Result Comment: IG% - Immature Granulocytes (promyelocytes, myelocytes and metamyelocytes) > 1% indicates that a LEFT SHIFT is Present. Performed By: #### L 100.0100, L500.2500 ####[facility] [address] [place], [address] Lymphocytes/100 WBC (Bld) 22.3 % Normal 19-41 [facility] Comment on above: Performed By: #### L 100.0100, L500.2500 ####[facility] [address] [place], [address] MCH (RBC) [Entitic mass] 29.6 pg Normal 27.0-32.0 [facility] Comment on above: Performed By: #### L 100.0100, L500.2500 ####[facility] [address] [place], [address] MCHC (RBC) [Mass/Vol] 32.3 g/dL Normal 32-36 [facility] Comment on above: Performed By: #### L 100.0100, L500.2500 ####[facility] [address] [place], [address] MCV (RBC) [Entitic vol] 91.8 fL Normal 80-94 [facility] Comment on above: Performed By: #### L 100.0100, L500.2500 ####[facility] [address] [place], [address] Monocytes/100 WBC (Bld) 9.8 % Normal 0-10 [facility] Comment on above: Performed By: #### L 100.0100, L500.2500 ####[facility] [address] [place], [address] Neutrophils/100 WBC (Bld) 63.2 % Normal 47-70 [facility] Comment on above: Performed By: #### L 100.0100, L500.2500 ####[facility] [address] [place], [address] Nucleated RBC (Bld) [#/Vol] 0 10*3/uL Normal 0-5 [facility] Comment on above: Performed By: #### L 100.0100, L500.2500 ####[facility] [address] [place], [address] Platelet mean volume (Bld) [Entitic vol] 10.8 fL Normal 6.2-12.0 [facility] Comment on above: Performed By: #### L 100.0100, L500.2500 ####[facility] [address] [place], [address] Platelets (Bld) [#/Vol] 104 10*3/uL Low 150-450 [facility] Comment on above: Performed By: #### L 100.0100, L500.2500 ####[facility] [address] [place], [address] RBC (Bld) [#/Vol] 3.88 10*6/uL Low 4.6-6.2 [facility] Comment on above: Performed By: #### L 100.0100, L500.2500 ####[facility] [address] [place], [address] RDW SD 49.7 fl High 35.1-43.9 [facility] Comment on above: Performed By: #### L 100.0100, L500.2500 ####[facility] [address] [place], [address] WBC (Bld) [#/Vol] 5.2 10*3/uL Normal 4.4-11.0 [facility] Comment on above: Performed By: #### L 100.0100, L500.2500 ####[facility] [address] [place], [address] Carbon dioxide, total [Moles /volume] in Central venous bloodOrdered By: Hernandez King on 01-12-2025 CO2 [Moles/Vol] 24.7 mmol/L 21.0-32.0 [facility] [facility] Chloride assayOrdered By: Ug o Fernando on 01-12-2025 Chloride [Moles/Vol] 102 mmol/L 98-108 [facility] Emergency Department Summary on 01-12-2025 Emergency Department Summary [facility] Medical Records Department [address] [place] [address] Emergency Department Summary 01/12/25 MR#: [id number] Acct: [id number] Name: LEANA CAMEJO Rep #: [id number] : 1940 85 From: Hernandez King MD PCP: Dr. Dallas Reed MD Status:REG ER Location: ED HPI History of Present Illness Chief Complaint: Abd Pain Detail of Chief Complaint: Left lower quadrant abdominal pain since yesterday Informant: patient and spouse/S.O. Onset/Context/Timing Onset: Yesterday Context: Sudden Onset Timing: Continuous Quality: Pain Location: Left lower quadrant Current Severity: Mild Maximum Severity: Moderate Worsened by: Walking and coughing Relieved by: Nothing Associated Symptoms Associated Symptoms: Nausea without vomiting or diarrhea. Endorses constipation Narrative Narrative: Patient is a 85-year-old male. He has history of hernia repair recently by Dr. Bruce, type II endoleak of aortic graft which was evaluated at [facility] November of this year. He is presently under the care of Dustin Hawk regarding the type II endoleak. 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 Patient states he contacted Dr. Hawk who recommended he come to the emergency department. He states he had a terrible night with had difficulty sleeping. He denies fever or chills. He denies cardiac or respiratory symptoms. He denies urologic symptoms. He denies back or flank pain. Prior similar symptoms: Yes (November 28, 2024, Dr. Gray's note was reviewed.) Recent Illness/Hospitalization: Yes (Transfer to [facility] for evaluation of endoleak of aort) [facility] Medical History Spigelian hernia Wears hearing aid Wears glasses History of steroid therapy Arthritis History of renal disease TIA (transient ischemic attack) Ataxia History of echocardiogram Easy bruising History of IBS Former smoker History of stress test Cardiology follow-up encounter History of irregular heartbeat Preop cardiovascular exam Stenosis of right internal carotid artery Abdominal aortic 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 Essential hypertension Lumbar disc disease 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 Hyperlipidemia Diverticulosis Pre-operative cardiovascular examination Anemia 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, NYHA class 2 RSV (respiratory syncytial virus pneumonia) Shortness of breath Cough productive of purulent sputum Home Medications ???Medication ???Instructions ???Recorded ???Last Taken ???Type losartan 100 mg tablet 100 mg PO DAILY BP 05/17/19 History multivitamin 1 tab PO DAILY supplement 05/18/19 05/21/24 History ascorbic acid (vitamin C) 500 mg 1,000 mg PO DAILY supplement 02/1305/23/24 History capsule carvedilol 12.5 mg tablet 12.5 mg PO BID heart #180 tabs 01/12/25 Rx doxazosin 8 mg tablet 8 mg PO QHS prostate 05/23/2412/20 History hydralazine 100 mg tablet 100 mg PO TID blood pressure 05/2301/12/25 History magnesium oxide 400 mg (241.3 mg 400 mg PO DAILY supplement 4 05/21/24 History magnesium) tablet aspirin 81 mg chewable tablet 81 mg PO BREAKFAST 30 days #30 tab s 05/24/24 01/12/25 Rx bempedoic acid 180 mg tablet 180 mg PO DAILY 07/11/24 01/12/25 History (Nexletol) ezetimibe 10 mg tablet 10 mg PO DAILY 07/11/24 01/12/25 H istory levothyroxine 25 mcg tablet 25 mcg PO DAILY 11/28/24 01/12/25 History amoxicillin 875 mg-potassium 875 mg PO Q12H #20 TABLETS 5 Unknown Rx clavulanate 125 mg tablet cholecalciferol (vitamin D3) 125 125 mcg PO DAILY 01/12/25 Unknown History mcg (5,000 unit) tablet (Vitamin D3) ferrous sulfate 325 mg (65 mg 325 mg PO DAILY 01/12/25 01/12/25 History iron) tablet (Feosol) fluticasone propionate 50 1 spray intranasal QHS PRN nasal 0 01/12/25 Unknown History mcg/actuation nasal congestion spray,suspension nifedipine 60 mg tablet,extended 60 mg PO DAILY 01/12/25 01/12/25 H istory release Allergy/AdvReac Type Severity Reaction Status Date / Time lisinopril Allergy Intermediate Rash Verified 01/12/25 10:29 atorvastatin calcium (From Allergy Other Verified 01/12/25 10:29 Lipitor) clonidine Allergy Unknown Verified 01/12/25 10:29 rosuvastatin calcium (From Allergy Other Verified 01/12/25 10:29 Crestor) Jebuxwy-WXQ-TgY Reductase Allergy Other Verified 01/12/25 10:29 Inhibitor (Kihsqtt-Bsk-Lsj Reductase Inhibitor) Family History Father Lung ca (more content not included)... Normal [facility] Eosinophil percentageOrdered By: Hernandez King on 01-12-2025 Eosinophils/100 WBC (Bld) 3.5 % 0-5 [facility] Erythrocyte distribution wid th (RBC) [Ratio]Ordered By: Hernandez King on 01-12-2025 Erythrocyte distribution width (RBC) [Entitic vol] 49.7 fL High 35.1-43.9 [facility] Erythrocyte distribution wid th ratioOrdered By: Hernandez King on 01-12-2025 Erythrocyte distribution width (RBC) [Ratio] 14.8 % High 11.6-14.6 [facility] Erythrocyte distribution wid th standard deviationOrdered By: Hernandez King on 01-12-2025 Erythrocyte distribution width (RBC) [Ratio] 49.7 fl High 35.1-43.9 [facility] Estimation of creatinine maira aranceOrdered By: Hernandez King on 01-12-2025 Estimated Creatinine Clearance Calc 33.25 ml/min Low 50-250 [facility] GFR/1.73 sq M.predicted gabi g non-blacks MDRD (S/P/Bld) [Vol rate/Area]Ordered By: Hernandez King on 01-12-2025 Estimated GFR (MDRD) Non-Af Amer 44 Low >60 [facility] Comment on above: mL/min/1.73m2 CKD-EP I Creatinine Equation (2020) Glomerular filtration rate ( GFR) estimation/1.73 sq m using serum, plasma, or whole bOrdered By: Hernandez King on 01-12-2025 GFR/1.73 sq M.predicted among non-blacks MDRD (S/P/Bld) [Vol rate/Area] 44 mL/min/{1.73_m2} Low >60 [facility] Comment on above: mL/min/1.73m2 CKD-EP I Creatinine Equation (2020) Hematocrit Auto (Bld) [Volum e fraction]Ordered By: Hernandez King on 01-12-2025 Hematocrit (Bld) [Volume fraction] 35.6 % Low 40-54 [facility] Hemoglobin measurementOrdere d By: Hernandez King on 01-12-2025 Hemoglobin (Bld) [Mass/Vol] 11.5 g/dL Low 13.0-16.5 [facility] Immature granulocytes/100 WB C Auto (Bld)Ordered By: Hernandez King on 01-12-2025 Immature granulocytes/100 WBC (Bld) 0.400 % 0.0-0.9 [facility] Comment on above: IG% - Immature Granu locytes (promyelocytes, myelocytes and metamyelocytes) > 1% indicates that a LEFT SHIFT is Present. Lymphocytes Auto (Unsp spec) [#/Vol]Ordered By: Hernandez King on 01-12-2025 Lymphocytes (Bld) [#/Vol] 1.16 10*3/uL 0.83-4.51 [facility] Lymphocytes/100 WBC Auto (Un sp spec)Ordered By: Hernandez Mccarthyo on 01-12-2025 Lymphocytes/100 WBC (Bld) 22.3 % 19-41 [facility] MCV (mean corpuscular volume ) determinationOrdered By: Hernandez King on 01-12-2025 MCV (RBC) [Entitic vol] 91.8 fL 80-94 [facility] Mean corpuscular hemoglobin (MCH) determinationOrdered By: Hernnadez King on 01-12-2025 MCH (RBC) [Entitic mass] 29.6 pg 27.0-32.0 [facility] Mean corpuscular hemoglobin concentration (MCHC) determinationOrdered By: Hernandez King on 01-12-2025 MCHC (RBC) [Mass/Vol] 32.3 g/dL 32-36 [facility] Mean platelet volume determi nationOrdered By: Hernandezsingh Mccarthyo on 01-12-2025 Platelet mean volume (Bld) [Entitic vol] 10.8 fL 6.2-12.0 [facility] Monocyte percentageOrdered B y: Hernandez King on 01-12-2025 Monocytes/100 WBC (Bld) 9.8 % 0-10 [facility] Neutrophil percentageOrdered By: Hernandez King on 01-12-2025 Neutrophils/100 WBC (Bld) 63.2 % 47-70 [facility] Nucleated red blood cell per centageOrdered By: Hernandez King on 01-12-2025 Nucleated RBC/100 WBC (Bld) [Ratio] 0 % 0-5 [facility] Platelet countOrdered By: Ug o King on 01-12-2025 Platelets (Bld) [#/Vol] 104 10*3/uL Low 150-450 [facility] Potassium (Unsp spec) [Mass/ Vol]Ordered By: Hernandez King on 01-12-2025 Potassium [Moles/Vol] 3.9 mmol/L 3.3-5.1 [facility] Potassium measurement (mass/ volume)Ordered By: Hernandez King on 01-12-2025 Potassium (Unsp spec) [Mass/Vol] 3.9 mmol/L 3.3-5.1 [facility] RBC Auto (Bld) [#/Vol]Ordere d By: [facility] on 01-12-2025 RBC (Bld) [#/Vol] 3.88 10*6/uL Low 4.6-6.2 [facility] Serum creatinine measurement (mass/volume)Ordered By: [facility] on 01-12-2025 Creatinine [Mass/Vol] 1.54 mg/dL High 0.70-1.20 [facility] Serum glucose measurement (m ass/volume)Ordered By: [facility] on 01-12-2025 Glucose [Mass/Vol] 93 mg/dL 70-99 [facility] Serum or plasma calcium jossie urement (mass/volume)Ordered By: [facility] on 01-12-2025 Calcium [Mass/Vol] 8.8 mg/dL 7.6-11.0 [facility] Serum or plasma urea nitroge n measurement (mass/volume)Ordered By: [facility] on 01-12-2025 Urea nitrogen [Mass/Vol] 38 mg/dL High 4-19 [facility] Sodium levelOrdered By: [facility] on 01-12-2025 Sodium [Moles/Vol] 138 mmol/L 133-145 [facility] White blood cell (WBC) count Ordered By: [facility] on 01-12-2025 WBC (Bld) [#/Vol] 5.2 10*3/uL 4.4-11.0 [facility] CNPTOUTREACHon 12-26-2024 CNPTOUTREACH Normal [facility] MR/BMS.Arnoldo 12-25-2024 MR/BMS.JAMES [facility] [address] [place], [place] [address] OFFICE VISIT Date of Service: 12/25/24 MR#: [id number] Acct: [id number] Name: LEANA CAMEJO Rep #: [id number] : 1940 Provider: Dr. Dustin Hawk MD Age/Sex: 84/M Location: [facility] Status: Signed Intake Vital Signs 11/28/24 17:53 12/25/24 15:58 Height 5 ft 8 in Weight: 148 lb BP 160/83 H Blood Pressure Location Lt brachial Position Sitting Respiration 16 Pulse 68 Pulse Source Monitor Temp 98 F Temp Source Temporal Pulse Oximetry (%) 97 Oxygen Delivery Method room air Intake Visit Reasons: Discuss aneurysm, [facility] sent him here Is patient in pain?: No Allergies lisinopril Allergy (Intermediate, Verified 12/25/24 16:01) Rash atorvastatin calcium (From Lipitor) Allergy (Verified 12/25/24 16:01) Other clonidine Allergy (Verified 12/25/24 16:01) Unknown rosuvastatin calcium (From Crestor) Allergy (Verified 12/25/24 16:01) Other Xsspusy-MAV-UgF Reductase Inhibitor (Acipxap-Rsz-Kmi Reductase Inhibitor) Allergy (Verified 12/25/24 16:01) Other Medications ???Medication ???Instructions ???Recorded ???Confirmed ???Type losartan 100 mg tablet 100 mg PO DAILY BP 05/17/19 History cholecalciferol (vitamin D3) 50 2,000 unit PO DAILY supplement 12/25/24 History mcg (2,000 unit) capsule multivitamin 1 tab PO DAILY supplement 05/18/19 12/25/24 History ascorbic acid (vitamin C) 500 mg 2,000 mg PO DAILY supplement 02/1312/25/24 History capsule carvedilol 12.5 mg tablet 12.5 mg PO BID heart #180 tabs 12/25/24 Rx doxazosin 8 mg tablet 8 mg PO QHS prostate 05/23/2404/13 History hydralazine 100 mg tablet 100 mg PO TID blood pressure 05/2312/25/24 History magnesium oxide 400 mg (241.3 mg 400 mg PO DAILY supplement 4 12/25/24 History magnesium) tablet aspirin 81 mg chewable tablet 81 mg PO BREAKFAST 30 days #30 tab s 05/24/24 12/25/24 Rx bempedoic acid 180 mg tablet 180 mg PO DAILY 07/11/24 12/25/24 History (Nexletol) ezetimibe 10 mg tablet 10 mg PO DAILY 07/11/24 12/25/24 H istory furosemide 20 mg tablet 20 mg PO DAILY 07/11/24 12/25/24 H istory levothyroxine 25 mcg tablet 25 mcg PO DAILY 11/28/24 12/25/24 History Have you fallen in the past year?: Yes PFSH Medical History Spigelian hernia Wears hearing aid Wears glasses History of steroid therapy Arthritis History of renal disease TIA (transient ischemic attack) Ataxia History of echocardiogram Easy bruising History of IBS Former smoker History of stress test Cardiology follow-up encounter History of irregular heartbeat Preop cardiovascular exam Stenosis of right internal carotid artery Abdominal aortic 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 Essential hypertension Lumbar disc disease 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 Hyperlipidemia Diverticulosis Pre-operative cardiovascular examination Anemia 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, NYHA class 2 RSV (respiratory syncytial virus pneumonia) Shortness of breath Cough productive of purulent sputum Surgical History S/P spigelian hernia repair, follow-up exam S/P AAA repair History of right-sided carotid endarterectomy Hx of cataract surgery Hx of appendectomy History of tonsillectomy History of back surgery History of colonoscopy History of blepharoplasty History of inguinal hernia repair History of umbilical hernia repair 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 Family History Father Lung cancer Liver cancer Mother Oral cancer Social History household members: spouse Smoking Status: Former smoker second hand exposure: No alcohol intake: never substance use type: does not use caffeine: Yes Type: coffee Number of servings: 2 HPI HPI HPI: LEANA CAMEJO, is a 84 M who presents to the office today for follow up of prior EVAR by Dr. Perez. Recent imaging has revealed growth in aneurysm size to 6.2 cm (5.6 on CTA after repair) and a known type 2 endoleak. Reviewing prior imaging this has steadily increased in size after initial decrease after EVAR had been done. He had presented with ED in mid November with more acute abdominal pain and no obvious alternative cause so he was sent to [facility] for further evaluation should it be due to his aneurysm. His abdominal pain resolved, though no cause was revealed. His CT scans in the past have been with IV contrast though not triple phase or thin (more content not included)... Normal [facility] CNTHERAPYon 12-22-2024 CNTHERAPY Normal [facility] CNPTOUTREACHon 12-19-2024 CNPTOUTREACH Normal [facility] CNTHERAPYon 12-19-2024 CNTHERAPY Normal [facility] CNTHERAPYon 12-15-2024 CNTHERAPY Normal [facility] CNTHERAPYon 12-12-2024 CNTHERAPY Normal [facility] CNPNon 12-11-2024 CNPN Normal [facility] CNPTOUTREACHon 12-11-2024 CNPTOUTREACH Normal [facility] CNOVon 12-08-2024 CNOV Normal [facility] CNTHERAPYon 12-08-2024 CNTHERAPY Normal [facility] CNTHERAPYon 12-06-2024 CNTHERAPY Normal [facility] THERAPY NTon 12-06-2024 THERAPY NT Normal [facility] CNPTOUTREACHon 12-04-2024 CNPTOUTREACH Normal [facility] CNPNon 12-02-2024 CNPN Normal [facility] CASE MANAGEMon 12-01-2024 CASE MANAGEM Normal [facility] CBC panel Auto (Bld)on 12-01 Erythrocyte distribution width (RBC) [Ratio] 14.8 % Normal 11.5-15.0 [facility] Comment on above: Order Comment: Speci men Type: BLOOD SPECIMENOrdering Facility: [facility] Address: [address] [place] [address] Performed By: #### 5 8410-2 ####[facility] LABCLIA [id number] [place] [address] [place] Hematocrit (Bld) [Volume fraction] 33.8 % Low 39.0-51.0 [facility] Comment on above: Order Comment: Speci men Type: BLOOD SPECIMENOrdering Facility: [facility] Address: [address] [place] [address] Performed By: #### 5 8410-2 ####[facility] LABIA [id number] [place] [address] [place] Hemoglobin (Bld) [Mass/Vol] 10.9 g/dL Low 13.0-17.0 [facility] Comment on above: Order Comment: Speci men Type: BLOOD SPECIMENOrdering Facility: [facility] Address: [address] [place] [address] Performed By: #### 5 8410-2 ####[facility] LABIA [id number] [place] [address] [place] MCH (RBC) [Entitic mass] 30.1 pg Normal 26.0-34.0 [facility] Comment on above: Order Comment: Speci men Type: BLOOD SPECIMENOrdering Facility: [facility] Address: [address] [place] [address] Performed By: #### 5 8410-2 ####[facility] LABIA [id number] [place] [address] [place] MCHC (RBC) [Mass/Vol] 32.2 g/dL Normal 30.5-36.0 [facility] Comment on above: Order Comment: Speci men Type: BLOOD SPECIMENOrdering Facility: [facility] Address: [address] [place] [address] Performed By: #### 5 8410-2 ####[facility] LABIA [id number] [place] [id number] [place] MCV (RBC) [Entitic vol] 93.4 fL Normal 80.0-100.0 [facility] Comment on above: Order Comment: Speci men Type: BLOOD SPECIMENOrdering Facility: [facility] Address: [address] [place] [address] Performed By: #### 5 8410-2 ####[facility] LABIA [id number] [address] [place] [address] [place] Nucleated RBC (Bld) [#/Vol] 10*3/uL Normal <0.01 [facility] Comment on above: Order Comment: Speci men Type: BLOOD SPECIMENOrdering Facility: [facility] Address: [address] [place] [address] Performed By: #### 5 8410-2 ####[facility] LABCLIA [id number] [place] [address] [place] Platelet mean volume (Bld) [Entitic vol] 11.0 fL Normal 9.0-12.7 [facility] Comment on above: Order Comment: Speci men Type: BLOOD SPECIMENOrdering Facility: [facility] Address: [address] [place] [address] Performed By: #### 5 8410-2 ####[facility] LABCLIA [id number] [place] [address] [place] Platelets (Bld) [#/Vol] 86 10*3/uL Low 150-400 [facility] Comment on above: Order Comment: Speci men Type: BLOOD SPECIMENOrdering Facility: [facility] Address: [address] [place] [address] Result Comment: No c lot detected. Performed By: #### 5 8410-2 ####[facility] LABIA [id number] [place] [address] [place] RBC (Bld) [#/Vol] 3.62 10*6/uL Low 4.20-6.00 [facility] Comment on above: Order Comment: Speci men Type: BLOOD SPECIMENOrdering Facility: [facility] Address: [address] [place] [address] Performed By: #### 5 8410-2 ####[facility] LABCLIA [id number] [place] [address] [place] WBC (Bld) [#/Vol] 5.61 10*3/uL Normal 3.70-11.00 [facility] Comment on above: Order Comment: Speci men Type: BLOOD SPECIMENOrdering Facility: [facility] Address: [address] [place] [address] Performed By: #### 5 8410-2 ####[facility] LABCLIA [id number] [address] [address] [place] CNDSon 12-01-2024 CNDS Normal [facility] Comprehensive metabolic 2000 panelon 12-01-2024 Albumin [Mass/Vol] 3.2 g/dL Low 3.9-4.9 [facility] Comment on above: Order Comment: Speci men Type: BLOOD SPECIMENOrdering Facility: [facility] Address: [address] [place] [address] Performed By: #### 2 4323-8, HSTNT ####[facility] LABCLIA [id number] [place] [address] [place] ALP [Catalytic activity/Vol] 57 U/L Normal 38-113 [facility] Comment on above: Order Comment: Speci men Type: BLOOD SPECIMENOrdering Facility: [facility] Address: [address] [place] [address] Performed By: #### 2 4323-8, HSTNT ####[facility] LABCLIA [id number] [place] [id number] [place] ALT [Catalytic activity/Vol] 16 U/L Normal 10-54 [facility] Comment on above: Order Comment: Speci men Type: BLOOD SPECIMENOrdering Facility: [facility] Address: [address] [place] [address] Performed By: #### 2 4323-8, HSTNT ####[facility] LABCLIA [id number] [place] [id number] [place] Anion gap [Moles/Vol] 7 mmol/L Low 8-15 [facility] Comment on above: Order Comment: Speci men Type: BLOOD SPECIMENOrdering Facility: [facility] Address: [address] [place] [address] Performed By: #### 2 4323-8, HSTNT ####[facility] LABCLIA [id number] [place] [address] [place] AST [Catalytic activity/Vol] 22 U/L Normal 14-40 [facility] Comment on above: Order Comment: Speci men Type: BLOOD SPECIMENOrdering Facility: [facility] Address: [address] [place] [address] Performed By: #### 2 4323-8, HSTNT ####[facility] LABCLIA [id number] [place] [address] [place] Bilirubin [Mass/Vol] 0.4 mg/dL Normal 0.2-1.3 [facility] Comment on above: Order Comment: Speci men Type: BLOOD SPECIMENOrdering Facility: [facility] Address: [address] [place] [address] Performed By: #### 2 4323-8, HSTNT ####[facility] LABCLIA [id number] [place] [address] [place] Calcium [Mass/Vol] 8.8 mg/dL Normal 8.5-10.2 [facility] Comment on above: Order Comment: Speci men Type: BLOOD SPECIMENOrdering Facility: [facility] Address: [address] [place] [address] Performed By: #### 2 4323-8, HSTNT ####[facility] LABCLIA [id number] [place] [id number] [place] Chloride [Moles/Vol] 105 mmol/L Normal 98-107 [facility] Comment on above: Order Comment: Speci men Type: BLOOD SPECIMENOrdering Facility: [facility] Address: [address] [place] [address] Performed By: #### 2 4323-8, HSTNT ####[facility] LABCLIA [id number] [address] [address] [place] CO2 [Moles/Vol] 26 mmol/L Normal 22-30 [facility] Comment on above: Order Comment: Speci men Type: BLOOD SPECIMENOrdering Facility: [facility] Address: [address] [place] [address] Performed By: #### 2 4323-8, HSTNT ####[facility] LABIA [id number] [address] [address] [place] Creatinine [Mass/Vol] 1.59 mg/dL High 0.73-1.22 [facility] Comment on above: Order Comment: Speci men Type: BLOOD SPECIMENOrdering Facility: [facility] Address: [address] [place] [address] Performed By: #### 2 4323-8, HSTNT ####[facility] [id number] [place] [address] [place] Creatinine and Glomerular filtration rate.predicted panel (S/P/Bld) 43 mL/min/1.73m??? Low >=60 [facility] Comment on above: Order Comment: Speci men Type: BLOOD SPECIMENOrdering Facility: [facility] Address: [address] [place] [address] Result Comment: [place]ear[place] mated Glomerular Filtration Rate (eGFR) is calculated using the 2020 CKD-EPI creatinine equation. This equation utilizes serum creatinine, sex, and age as parameters. The creatinine assay has traceable calibration to isotope dilution-mass spectrometry. Refer to KDIGO guidelines for clinical interpretation. In patients with unstable renal function, e.g. those with acute kidney injury, the eGFR may not accurately reflect actual GFR. Performed By: #### 2 4323-8, HSTNT ####[facility] LABIA [id number] [address] [address] [place] Glucose [Mass/Vol] 95 mg/dL Normal 74-99 [facility] Comment on above: Order Comment: Speci men Type: BLOOD SPECIMENOrdering Facility: [facility] Address: [address] [place] [address] Result Comment: The [place] Diabetes [employer] (ADA) provides guidance for cutoff values for fasting glucose and random glucose. The ADA defines fasting as no caloric intake for at least 8 hours. Fasting plasma glucose results between 100 to 125 mg/dL indicate increased risk for diabetes (prediabetes).Fasting plasma glucose results greater than or equal to 126 mg/dL meet the criteria for diagnosis of diabetes. In the absence of unequivocal hyperglycemia, results should be confirmed by repeat testing. In a patient with classic symptoms of hyperglycemia or hyperglycemic crisis, random plasma glucose results greater than or equal to 200 mg/dL meet the criteria for diagnosis of diabetes.Reference: Standards of Medical Care in Diabetes 2016, [place] [employer]. Diabetes Care. 2016.39(Suppl 1). Performed By: #### 2 4323-8, HSTNT ####[facility] LABCLIA [id number] [place] [address] [place] Potassium [Moles/Vol] 4.9 mmol/L Normal 3.7-5.1 [facility] Comment on above: Order Comment: Speci men Type: BLOOD SPECIMENOrdering Facility: [facility] Address: [address] [place] [address] Performed By: #### 2 4323-8, HSTNT ####[facility] LABCLIA [id number] [place] [address] [place] Protein [Mass/Vol] 6.0 g/dL Low 6.3-8.0 [facility] Comment on above: Order Comment: Speci men Type: BLOOD SPECIMENOrdering Facility: [facility] Address: [address] [place] [address] Performed By: #### 2 4323-8, HSTNT ####[facility] LABCLIA [id number] [place] [id number] [place] Sodium [Moles/Vol] 138 mmol/L Normal 136-144 [facility] Comment on above: Order Comment: Speci men Type: BLOOD SPECIMENOrdering Facility: [facility] Address: [address] [place] [address] Performed By: #### 2 4323-8, HSTNT ####[facility] LABCLIA [id number] [address] [place] [address] [place] Urea nitrogen [Mass/Vol] 32 mg/dL High 9-24 [facility] Comment on above: Order Comment: Speci men Type: BLOOD SPECIMENOrdering Facility: [facility] Address: [address] [place] [address] Performed By: #### 2 4323-8, HSTNT ####[facility] LABCLIA [id number] [address] [place] [address] [place] HIGH SENSITIVITY TROPONIN To n 12-01-2024 Troponin T.cardiac High sensitivity method [Mass/Vol] 104 ng/L High <12 [facility] Comment on above: Order Comment: Speci men Type: BLOOD SPECIMENOrdering Facility: [facility] Address: [address] [place] [address] Performed By: #### 2 4323-8, HSTNT ####[facility] LABCLIA [id number] [address] [place] [address] [place] PT EDon 12-01-2024 PT ED Normal [facility] THERAPY NTon 12-01-2024 THERAPY NT Normal [facility] CASE MANAGEMon 11-30-2024 CASE MANAGEM Normal [facility] CBC panel Auto (Bld)on 11-30 Erythrocyte distribution width (RBC) [Ratio] 14.8 % Normal 11.5-15.0 [facility] Comment on above: Order Comment: Speci men Type: BLOOD SPECIMENOrdering Facility: [facility] Address: [address] [place] [address] Performed By: #### 5 8410-2 ####[facility] LABCLIA [id number] [address] [place] [address] [place] Hematocrit (Bld) [Volume fraction] 32.6 % Low 39.0-51.0 [facility] Comment on above: Order Comment: Speci men Type: BLOOD SPECIMENOrdering Facility: [facility] Address: [address] [place] [address] Performed By: #### 5 8410-2 ####[facility] LABIA [id number] [place] [address] [place] Hemoglobin (Bld) [Mass/Vol] 10.7 g/dL Low 13.0-17.0 [facility] Comment on above: Order Comment: Speci men Type: BLOOD SPECIMENOrdering Facility: [facility] Address: [address] [place] [address] Performed By: #### 5 8410-2 ####[facility] LABIA [id number] [place] [address] [place] MCH (RBC) [Entitic mass] 30.1 pg Normal 26.0-34.0 [facility] Comment on above: Order Comment: Speci men Type: BLOOD SPECIMENOrdering Facility: [facility] Address: [address] [place] [address] Performed By: #### 5 8410-2 ####[facility] LABIA [id number] [place] [address] [place] MCHC (RBC) [Mass/Vol] 32.8 g/dL Normal 30.5-36.0 [facility] Comment on above: Order Comment: Speci men Type: BLOOD SPECIMENOrdering Facility: [facility] Address: [address] [place] [address] Performed By: #### 5 8410-2 ####[facility] LABIA [id number] [place] [address] [place] MCV (RBC) [Entitic vol] 91.6 fL Normal 80.0-100.0 [facility] Comment on above: Order Comment: Speci men Type: BLOOD SPECIMENOrdering Facility: [facility] Address: [address] [place] [address] Performed By: #### 5 8410-2 ####[facility] LABCLIA [id number] [address] [address] [place] Nucleated RBC (Bld) [#/Vol] 10*3/uL Normal <0.01 [facility] Comment on above: Order Comment: Speci men Type: BLOOD SPECIMENOrdering Facility: [facility] Address: [address] [place] [address] Performed By: #### 5 8410-2 ####[facility] LABCLIA [id number] [address] [address] [place] Platelet mean volume (Bld) [Entitic vol] 12.0 fL Normal 9.0-12.7 [facility] Comment on above: Order Comment: Speci men Type: BLOOD SPECIMENOrdering Facility: [facility] Address: [address] [place] [address] Performed By: #### 5 8410-2 ####[facility] LABCLIA [id number] [place] [address] [place] Platelets (Bld) [#/Vol] 79 10*3/uL Low 150-400 [facility] Comment on above: Order Comment: Speci men Type: BLOOD SPECIMENOrdering Facility: [facility] Address: [address] [place] [address] Performed By: #### 5 8410-2 ####[facility] LABCLIA [id number] [address] [place] [address] [place] RBC (Bld) [#/Vol] 3.56 10*6/uL Low 4.20-6.00 [facility] Comment on above: Order Comment: Speci men Type: BLOOD SPECIMENOrdering Facility: [facility] Address: [address] [place] [address] Performed By: #### 5 8410-2 ####[facility] LABCLIA [id number] [address] [address] [place] WBC (Bld) [#/Vol] 5.54 10*3/uL Normal 3.70-11.00 [facility] Comment on above: Order Comment: Speci men Type: BLOOD SPECIMENOrdering Facility: [facility] Address: [address] [place] [address] Performed By: #### 5 8410-2 ####[facility] LABIA [id number] [address] [place] [address] [place] CONSULT PROGon 11-30-2024 CONSULT PROG Normal [facility] Comprehensive metabolic 2000 panelon 11-30-2024 Albumin [Mass/Vol] 3.2 g/dL Low 3.9-4.9 [facility] Comment on above: Order Comment: Speci men Type: BLOOD SPECIMENOrdering Facility: [facility] Address: [address] [place] [address] Performed By: #### 2 4323-8, , 2776- ####[facility] LABIA [id number] [place] [id number] [place] ALP [Catalytic activity/Vol] 54 U/L Normal 38-113 [facility] Comment on above: Order Comment: Speci men Type: BLOOD SPECIMENOrdering Facility: [facility] Address: [address] [place] [address] Performed By: #### 2 4323-8, , 2776-09 ####[facility] LABIA [id number] [address] [address] [place] ALT [Catalytic activity/Vol] 20 U/L Normal 10-54 [facility] Comment on above: Order Comment: Speci men Type: BLOOD SPECIMENOrdering Facility: [facility] Address: [address] [place] [address] Performed By: #### 2 4323-8, , 2776-09 ####[facility] LABCLIA [id number] [address] [address] [place] Anion gap [Moles/Vol] 11 mmol/L Normal 8-15 [facility] Comment on above: Order Comment: Speci men Type: BLOOD SPECIMENOrdering Facility: [facility] Address: [address] [place] [address] Performed By: #### 2 4323-8, , 2776-09 ####[facility] LABCLIA [id number] [address] [address] [place] AST [Catalytic activity/Vol] 22 U/L Normal 14-40 [facility] Comment on above: Order Comment: Speci men Type: BLOOD SPECIMENOrdering Facility: [facility] Address: [address] [place] [address] Performed By: #### 2 4323-8, , 2776-09 ####[facility] LABCLIA [id number] [place] [id number] [place] Bilirubin [Mass/Vol] 0.4 mg/dL Normal 0.2-1.3 [facility] Comment on above: Order Comment: Speci men Type: BLOOD SPECIMENOrdering Facility: [facility] Address: [address] [place], [place] [address] Performed By: #### 2 4323-8, , 2776-09 ####[facility] LABCLIA [id number] [address] [address] [place] Calcium [Mass/Vol] 8.8 mg/dL Normal 8.5-10.2 [facility] Comment on above: Order Comment: Speci men Type: BLOOD SPECIMENOrdering Facility: [facility] Address: [address] [place], [place] [address] Performed By: #### 2 4323-8, , 2776-09 ####[facility] LABCLIA [id number] [place] [id number] [place] Chloride [Moles/Vol] 102 mmol/L Normal 98-107 [facility] Comment on above: Order Comment: Speci men Type: BLOOD SPECIMENOrdering Facility: [facility] Address: [address] [place] [address] Performed By: #### 2 4323-8, 02520-0, 2777-1 ####[facility] LABIA [id number] [place] [id number] [place] CO2 [Moles/Vol] 23 mmol/L Normal 22-30 [facility] Comment on above: Order Comment: Speci men Type: BLOOD SPECIMENOrdering Facility: [facility] Address: [address] [place] [address] Performed By: #### 2 4323-8, 43796-9, 277-1 ####[facility] [id number] [place] [address] [place] Creatinine [Mass/Vol] 1.59 mg/dL High 0.73-1.22 [facility] Comment on above: Order Comment: Speci men Type: BLOOD SPECIMENOrdering Facility: [facility] Address: [address] [place] [address] Performed By: #### 2 4323-8, 74975-6, 27771 ####[facility] [id number] [place] [address] [place] Creatinine and Glomerular filtration rate.predicted panel (S/P/Bld) 43 mL/min/1.73m??? Low >=60 [facility] Comment on above: Order Comment: Speci men Type: BLOOD SPECIMENOrdering Facility: [facility] Address: [address] [place] [address] Result Comment: [place] mated Glomerular Filtration Rate (eGFR) is calculated using the 2020 CKD-EPI creatinine equation. This equation utilizes serum creatinine, sex, and age as parameters. The creatinine assay has traceable calibration to isotope dilution-mass spectrometry. Refer to KDIGO guidelines for clinical interpretation. In patients with unstable renal function, e.g. those with acute kidney injury, the eGFR may not accurately reflect actual GFR. Performed By: #### 2 432-8, , 2776-09 ####[facility] LABCLIA [id number] [facility] [id number] [address] [place] Glucose [Mass/Vol] 98 mg/dL Normal 74-99 [facility] Comment on above: Order Comment: Specbrice lassiter Type: BLOOD SPECIMENOrdering Facility: [facility] Address: [address] [place] [id number] Result Comment: The [place] Diabetes Association (ADA) provides guidance for cutoff values for fasting glucose and random glucose. The ADA defines fasting as no caloric intake for at least 8 hours. Fasting plasma glucose results between 100 to 125 mg/dL indicate increased risk for diabetes (prediabetes).Fasting plasma glucose results greater than or equal to 126 mg/dL meet the criteria for diagnosis of diabetes. In the absence of unequivocal hyperglycemia, results should be confirmed by repeat testing. In a patient with classic symptoms of hyperglycemia or hyperglycemic crisis, random plasma glucose results greater than or equal to 200 mg/dL meet the criteria for diagnosis of diabetes.Reference: Standards of Medical Care in Diabetes 2016, [place] [employer]. Diabetes Care. 2016.39(Suppl 1). Performed By: #### 2 432-8, , 2776-09 ####[facility] LABCLIA [id number] [facility] [address] [place] [address] [place] Potassium [Moles/Vol] 4.4 mmol/L Normal 3.7-5.1 [facility] Comment on above: Order Comment: Ian lassiter Type: BLOOD SPECIMENOrdering Facility: [facility] Address: [address] [place] [address] Performed By: #### 2 432-8, , 2776-09 ####[facility] LABCLIA [id number] [facility]ENUEM[facility] [id number], [place] [address] [place] Protein [Mass/Vol] 5.8 g/dL Low 6.3-8.0 [facility] Comment on above: Order Comment: Speci men Type: BLOOD SPECIMENOrdering Facility: [facility] Address: [address] [place] [address] Performed By: #### 2 4323-8, , 2776-09 ####[facility] LABCLIA [id number] [place] [id number] [place] Sodium [Moles/Vol] 136 mmol/L Normal 136-144 [facility] Comment on above: Order Comment: Speci men Type: BLOOD SPECIMENOrdering Facility: [facility] Address: [address] [place] [address] Performed By: #### 2 4323-8, , 2776-09 ####[facility] LABCLIA [id number] [place] [address] [place] Urea nitrogen [Mass/Vol] 37 mg/dL High 9-24 [facility] Comment on above: Order Comment: Speci men Type: BLOOD SPECIMENOrdering Facility: [facility] Address: [address] [place] [address] Performed By: #### 2 4323-8, , 2776-09 ####[facility] LABIA [id number] [place] [id number] [place] Magnesium SerPl-mCncon 11-30 Magnesium [Mass/Vol] 2.3 mg/dL Normal 1.7-2.3 [facility] Comment on above: Order Comment: Speci men Type: BLOOD SPECIMENOrdering Facility: [facility] Address: [address] [place], [place] [address] Performed By: #### 2 4323-8, , 2776-09 ####[facility] LABCLIA [id number] [address] [address] [place] NURSING PROGon 11-30-2024 NURSING PROG Normal [facility] Phosphate SerPl-mCncon 11-30 Phosphate [Mass/Vol] 3.1 mg/dL [facility].7[facility] Comment on above: Order Comment: Speci men Type: BLOOD SPECIMENOrdering Facility: [facility] Address: [address] [place] [address] Performed By: #### 2 4323-8, 78436-7, 2777-1 ####[facility] LABCLIA [id number] [place] [address] [place] THERAPY NTon 11-30-2024 THERAPY NT Normal [facility] THERAPY NT Normal [facility] CAITLYN BY IFA WITH REFLEXon Nuclear Ab pattern (S) [Interp] Nuclear homogeneous Normal [facility] Comment on above: Order Comment: Speci men Type: BLOOD SPECIMENOrdering Facility: [facility] Address: [address] [place] [address] Performed By: #### A NAIFR, 49659-0, 65799-3, 53581-0, 43968-8, 85231-8, 84923-1, 03888-1, 38571-4, 59253-5, 6457-6 ####[facility] LABCLIA [id number] [place] [address] [place] Nuclear Ab Ql (S) Positive Abnormal Negative [facility] Comment on above: Order Comment: Speci men Type: BLOOD SPECIMENOrdering Facility: [facility] Address: [address] [place] [address] Result Comment: Anti -nuclear antibody test is used as an aid in diagnosis of systemic autoimmune diseases. Where positive and clinically warranted, follow-up using disease-specific testing is recommended. Low positive titers are not uncommon with advanced age, certain chronic infections, and malignancies among others.Test methodology: Indirect fluorescence immunoassay (IFA) using HEp-2 cells.1:320 Performed By: #### A NAIFR, 62592-7, 08785-9, 48751-9, 82818-0, 31716-9, 10049-6, 10539-0, 17545-4, 67403-2, 6457-6 ####[facility] LABIA [id number] [address], [facility] [place] CASE MGT INIT ASSESon 2024 CASE MGT INIT ASSES Normal [facility] CBC panel Auto (Bld)on 11-29 Erythrocyte distribution width (RBC) [Ratio] 14.9 % Normal 11.5-15.0 [facility] Comment on above: Order Comment: Speci men Type: BLOOD SPECIMENOrdering Facility: [facility] Address: [address] [place] [address] Performed By: #### 5 8410-2 ####[facility] [id number] [place] [address] [place] Hematocrit (Bld) [Volume fraction] 31.7 % Low 39.0-51.0 [facility] Comment on above: Order Comment: Speci men Type: BLOOD SPECIMENOrdering Facility: [facility] Address: [address] [place] [address] Performed By: #### 5 8410-2 ####[facility] [id number] [address] [place] Hemoglobin (Bld) [Mass/Vol] 10.5 g/dL Low 13.0-17.0 [facility] Comment on above: Order Comment: Speci men Type: BLOOD SPECIMENOrdering Facility: [facility] Address: [address] [place] [address] Performed By: #### 5 8410-2 ####[facility] [id number] [place] [id number] [place] MCH (RBC) [Entitic mass] 30.3 pg Normal 26.0-34.0 [facility] Comment on above: Order Comment: Speci men Type: BLOOD SPECIMENOrdering Facility: [facility] Address: [address] [place] [address] Performed By: #### 5 8410-2 ####[facility] LABIA [id number] [place] [address] [place] MCHC (RBC) [Mass/Vol] 33.1 g/dL Normal 30.5-36.0 [facility] Comment on above: Order Comment: Speci men Type: BLOOD SPECIMENOrdering Facility: [facility] Address: [address] [place] [address] Performed By: #### 5 8410-2 ####[facility] LABIA [id number] [place] [address] [place] MCV (RBC) [Entitic vol] 91.4 fL Normal 80.0-100.0 [facility] Comment on above: Order Comment: Speci men Type: BLOOD SPECIMENOrdering Facility: [facility] Address: [address] [place] [address] Performed By: #### 5 8410-2 ####[facility] [id number] [place] [address] [place] Nucleated RBC (Bld) [#/Vol] 10*3/uL Normal <0.01 [facility] Comment on above: Order Comment: Speci men Type: BLOOD SPECIMENOrdering Facility: [facility] Address: [address] [place] [address] Performed By: #### 5 8410-2 ####[facility] LABIA [id number] [place] [address] [place] Platelet mean volume (Bld) [Entitic vol] 10.5 fL Normal 9.0-12.7 [facility] Comment on above: Order Comment: Speci men Type: BLOOD SPECIMENOrdering Facility: [facility] Address: [address] [place] [address] Performed By: #### 5 8410-2 ####[facility] LABIA [id number] [place] [id number] [place] Platelets (Bld) [#/Vol] 87 10*3/uL Low 150-400 [facility] Comment on above: Order Comment: Speci men Type: BLOOD SPECIMENOrdering Facility: [facility] Address: [address] [place] [address] Performed By: #### 5 8410-2 ####[facility] LABIA [id number] [place] [address] [place] RBC (Bld) [#/Vol] 3.47 10*6/uL Low 4.20-6.00 [facility] Comment on above: Order Comment: Speci men Type: BLOOD SPECIMENOrdering Facility: [facility] Address: [address] [place] [address] Performed By: #### 5 8410-2 ####[facility] [id number] [place] [address] [place] WBC (Bld) [#/Vol] 4.89 10*3/uL Normal 3.70-11.00 [facility] Comment on above: Order Comment: Speci men Type: BLOOD SPECIMENOrdering Facility: [facility] Address: [address] [place] [address] Performed By: #### 5 8410-2 ####[facility] [id number] [place] [address] [place] CONSULT PROGon 11-29-2024 CONSULT PROG Normal [facility] Centromere Ab IF Ql (S)on Centromere Ab Qn (S) <0.2 Normal <1.0 [facility] Comment on above: Order Comment: Speci men Type: BLOOD SPECIMENOrdering Facility: [facility] Address: [address] [place] [address] Result Comment: Anti -centromere antibody is used as in aid in diagnosis of systemic sclerosis. Clinical correlation is required.Test Methodology: Multiplex flow immunoassay. Performed By: #### A [place] 68214-9, 81468-7, 66125-1, 19756-7, 97700-9, 38096-2, 13721-2, 84648-4, 65123-3, 6457-6 ####[facility] LABCLIA [id number] [place] [address] [place] CENTROMERE AB QUAL Negative Normal Negative [facility] Comment on above: Order Comment: Speci men Type: BLOOD SPECIMENOrdering Facility: [facility] Address: [address] [place] [address] Performed By: #### A NAIFR, 45832-2, 77213-5, 46368-7, 96412-2, 51072-8, 65651-0, 46055-0, 18056-5, 02177-2, 6457-6 ####[facility] LABCLIA [id number] [place] [address] [place] Chromatin Ab Qnon 11-29-2024 CHROMATIN AB QUAL Negative Normal Negative [facility] Comment on above: Order Comment: Speci men Type: BLOOD SPECIMENOrdering Facility: [facility] Address: [address] [place] [address] Performed By: #### A NAIFR, 31571-2, 16890-9, 13801-8, 22492-1, 68444-8, 37256-1, 21730-1, 00850-0, 20745-0, 6457-6 ####[facility] LABCLIA [id number] [place] [address] [place] Chromatin Ab SerPl-aCncon Chromatin Ab Qn <0.2 Normal <1.0 [facility] Comment on above: Order Comment: Speci men Type: BLOOD SPECIMENOrdering Facility: [facility] Address: [address] [place] [address] Result Comment: Test Methodology: Multiplex flow immunoassay. Performed By: #### A NAIFR, 26974-0, 25630-5, 05065-1, 82484-4, 88058-4, 27347-5, 07483-2, 16615-7, 07505-2, 6457-6 ####[facility] LABIA [id number] [address] [address] [place] Comprehensive metabolic 2000 panelon 11-29-2024 Albumin [Mass/Vol] 3.3 g/dL Low 3.9-4.9 [facility] Comment on above: Order Comment: Speci men Type: BLOOD SPECIMENOrdering Facility: [facility] Address: [address] [place], [place] [address] Performed By: #### 2 4323-8, 72043-3, 2776- ####[facility] LABIA [id number] [place] [id number] [place] ALP [Catalytic activity/Vol] 64 U/L Normal 38-113 [facility] Comment on above: Order Comment: Speci men Type: BLOOD SPECIMENOrdering Facility: [facility] Address: [address] [place], [place] [address] Performed By: #### 2 4323-8, , 2776- ####[facility] [id number] [place] [address] [place] ALT [Catalytic activity/Vol] 19 U/L Normal 10-54 [facility] Comment on above: Order Comment: Speci men Type: BLOOD SPECIMENOrdering Facility: [facility] Address: [address] [place] [id number] Performed By: #### 2 4323-8, 20471-2, 2776- ####[facility] LABIA [id number] [address] [address] [place] Anion gap [Moles/Vol] 8 mmol/L Normal 8-15 [facility] Comment on above: Order Comment: Speci men Type: BLOOD SPECIMENOrdering Facility: [facility] Address: [address] [place] [address] Performed By: #### 2 4323-8, , 2776-09 ####[facility] LABCLIA [id number] [address] [address] [place] AST [Catalytic activity/Vol] 24 U/L Normal 14-40 [facility] Comment on above: Order Comment: Speci men Type: BLOOD SPECIMENOrdering Facility: [facility] Address: [address] [place], [place] [address] Performed By: #### 2 4323-8, , 2776-09 ####[facility] LABIA [id number] [place] [address] [place] Bilirubin [Mass/Vol] 0.4 mg/dL Normal 0.2-1.3 [facility] Comment on above: Order Comment: Speci men Type: BLOOD SPECIMENOrdering Facility: [facility] Address: [address] [place] [address] Performed By: #### 2 4323-8, , 2776-09 ####[facility] LABIA [id number] [place] [address] [place] Calcium [Mass/Vol] 8.8 mg/dL Normal 8.5-10.2 [facility] Comment on above: Order Comment: Speci men Type: BLOOD SPECIMENOrdering Facility: [facility] Address: [address] [place], [place] [address] Performed By: #### 2 4323-8, , 2776-09 ####[facility] LABIA [id number] [place] [id number] [place] Chloride [Moles/Vol] 103 mmol/L Normal 98-107 [facility] Comment on above: Order Comment: Speci men Type: BLOOD SPECIMENOrdering Facility: [facility] Address: [address] [place], [place] [address] Performed By: #### 2 4323-8, , 2776-09 ####[facility] LABIA [id number] [address] [address] [place] CO2 [Moles/Vol] 26 mmol/L Normal 22-30 [facility] Comment on above: Order Comment: Speci men Type: BLOOD SPECIMENOrdering Facility: [facility] Address: [address] [place] [address] Performed By: #### 2 432-8, , 2776-09 ####[facility] LABIA [id number] [address] [address] [place] Creatinine [Mass/Vol] 1.59 mg/dL High 0.73-1.22 [facility] Comment on above: Order Comment: Speci men Type: BLOOD SPECIMENOrdering Facility: [facility] Address: [address] [place] [address] Performed By: #### 2 4328, , 2776-09 ####[facility] LABIA [id number] [place] [address] [place] Creatinine and Glomerular filtration rate.predicted panel (S/P/Bld) 43 mL/min/1.73m??? Low >=60 [facility] Comment on above: Order Comment: Speci men Type: BLOOD SPECIMENOrdering Facility: [facility] Address: [address] [place] [address] Result Comment: Keara mated Glomerular Filtration Rate (eGFR) is calculated using the 2020 CKD-EPI creatinine equation. This equation utilizes serum creatinine, sex, and age as parameters. The creatinine assay has traceable calibration to isotope dilution-mass spectrometry. Refer to KDIGO guidelines for clinical interpretation. In patients with unstable renal function, e.g. those with acute kidney injury, the eGFR may not accurately reflect actual GFR. Performed By: #### 2 4323-8, , 2776-09 ####[facility] LABIA [id number] [address] [address] [place] Glucose [Mass/Vol] 109 mg/dL High 74-99 [facility] Comment on above: Order Comment: Speci men Type: BLOOD SPECIMENOrdering Facility: [facility] Address: [address] [place] [address] Result Comment: The [place] Diabetes [employer] (ADA) provides guidance for cutoff values for fasting glucose and random glucose. The ADA defines fasting as no caloric intake for at least 8 hours. Fasting plasma glucose results between 100 to 125 mg/dL indicate increased risk for diabetes (prediabetes).Fasting plasma glucose results greater than or equal to 126 mg/dL meet the criteria for diagnosis of diabetes. In the absence of unequivocal hyperglycemia, results should be confirmed by repeat testing. In a patient with classic symptoms of hyperglycemia or hyperglycemic crisis, random plasma glucose results greater than or equal to 200 mg/dL meet the criteria for diagnosis of diabetes.Reference: Standards of Medical Care in Diabetes 2016, [place] [employer]. Diabetes Care. 2016.39(Suppl 1). Performed By: #### 2 4323-8, , 2776-09 ####[facility] LABCLIA [id number] [place] [address] [place] Potassium [Moles/Vol] 4.0 mmol/L Normal 3.7-5.1 [facility] Comment on above: Order Comment: Speci men Type: BLOOD SPECIMENOrdering Facility: [facility] Address: [address] [place] [address] Performed By: #### 2 4323-8, , 2776-09 ####[facility] LABCLIA [id number] [place] [id number] [place] Protein [Mass/Vol] 6.0 g/dL Low 6.3-8.0 [facility] Comment on above: Order Comment: Speci men Type: BLOOD SPECIMENOrdering Facility: [facility] Address: [address] [place] [address] Performed By: #### 2 4323-8, , 2776-09 ####[facility] LABCLIA [id number] [place] [address] [place] Sodium [Moles/Vol] 137 mmol/L Normal 136-144 [facility] Comment on above: Order Comment: Speci men Type: BLOOD SPECIMENOrdering Facility: [facility] Address: [address] [place] [address] Performed By: #### 2 4323-8, 07580-0, 2777-1 ####[facility] LABCLIA [id number] [place] [address] [place] Urea nitrogen [Mass/Vol] 39 mg/dL High 9-24 [facility] Comment on above: Order Comment: Speci men Type: BLOOD SPECIMENOrdering Facility: [facility] Address: [address] [place] [address] Performed By: #### 2 4323-8, 77526-8, 2777-1 ####[facility] LABIA [id number] [place] [address] [place] DNA double strand Ab IA Qn ( S)on 11-29-2024 DNA ANTIBODY 543 IU/mL High <=200 [facility] Comment on above: Order Comment: Speci men Type: BLOOD SPECIMENOrdering Facility: [facility] Address: [address] [place] [address] Result Comment: Nega tive: <200 IU/mLEquivocal: 201-300 IU/mLModerate Positive: 301-800 IU/mLStrong Positive: >801 IU/mL Performed By: #### A NAIFR, 88733-5, 05063-9, 38148-8, 88334-7, 17271-3, 23369-3, 60270-3, 83716-4, 23424-7, 6457-6 ####[facility] LABCLIA [id number] [place] [address] [place] DNA ANTIBODY QUALITATIVE INTERPRETATION Positive Abnormal Negative [facility] Comment on above: Order Comment: Speci men Type: BLOOD SPECIMENOrdering Facility: [facility] Address: [address] [place] [address] Performed By: #### A NAIFR, 32824-4, 10125-9, 30317-8, 38810-3, 39428-1, 07723-7, 07215-7, 58498-7, 22815-1, 6457-6 ####[facility] LABCLIA [id number] [address], [place] [address] [place] ECHO LIMITEDon 11-29-2024 ECHO LIMITED Normal [facility] SULEIMAN Jo1 Ab Ser-aCncon 2024 Keily-1 extractable nuclear Ab Qn (S) <0.2 Normal <1.0 [facility] Comment on above: Order Comment: Speci men Type: BLOOD SPECIMENOrdering Facility: [facility] Address: [address] [place] [address] Performed By: #### A NAIFR, 49851-9, 67216-0, 41662-2, 68958-1, 46883-9, 68981-4, 08095-3, 31131-6, 49458-5, 6457-6 ####[facility] LABIA [id number] [address], [facility] [place] SULEIMAN [employer] Ab Ser-aCncon 2024 Ribonucleoprotein extractable nuclear Ab Qn (S) <0.2 Normal <1.0 [facility] Comment on above: Order Comment: Speci men Type: BLOOD SPECIMENOrdering Facility: [facility] Address: [address] [place] [address] Performed By: #### A NAIFR, 18446-8, 36789-9, 50679-6, 56690-4, 44063-0, 10527-3, 71295-2, 96941-9, 38298-9, 6457-6 ####[facility] LABCLIA [id number] [address], [facility] [place] Ribonucleoprotein extractable nuclear Ab Qn (S) 0.4 AI Normal <1.0 [facility] Comment on above: Order Comment: Speci men Type: BLOOD SPECIMENOrdering Facility: [facility] Address: [address] [place] [address] Performed By: #### A NAIFR, 00255-5, 82448-0, 27702-6, 77875-1, 91105-6, 78294-1, 01493-9, 26124-2, 67488-4, 6457-6 ####[facility] LABCLIA [id number] [place] [address] [place] SULEIMAN SM IgG Ser-aCncon 2024 Dawkins extractable nuclear IgG Qn (S) <0.2 Normal <1.0 [facility] Comment on above: Order Comment: Speci men Type: BLOOD SPECIMENOrdering Facility: [facility] Address: [address] [place] [address] Performed By: #### A NAANDREYR, 55262-3, 40600-2, 31611-1, 68879-8, 36399-7, 25154-7, 22193-2, 82065-3, 51844-6, 6457-6 ####[facility] LABIA [id number] [address] [place] SULEIMAN SS-A Ab Ser-aCncon 11-29 Sjogrens syndrome-A extractable nuclear Ab Qn (S) <0.2 Normal <1.0 [facility] Comment on above: Order Comment: Speci men Type: BLOOD SPECIMENOrdering Facility: [facility] Address: [address] [place] [address] Result Comment: Test Methodology: Multiplex flow immunoassay. Performed By: #### A NAIFR, 75864-9, 00362-3, 81680-1, 92793-2, 96645-9, 33952-9, 84156-2, 07661-7, 00077-9, 6457-6 ####[facility] LABIA [id number] [place] [id number] [place] SULEIMAN SS-B Ab Ser-aCncon 11-29 Sjogrens syndrome-B extractable nuclear Ab Qn (S) <0.2 Normal <1.0 [facility] Comment on above: Order Comment: Ian lassiter Type: BLOOD SPECIMENOrdering Facility: [facility] Address: [address] [place] [address] Result Comment: Anti -SSB (anti-La) antibody is used as an aid in diagnosis of a variety of systemic autoimmune diseases, especially for Sjogren's syndrome and systemic lupus erythematosus. Clinical correlation is required.Test Methodology: Multiplex flow immunoassay. Performed By: #### A NAIFR, 51425-0, 24330-2, 83249-5, 09168-6, 48776-8, 07500-3, 05931-7, 84168-1, 71730-9, 6457-6 ####[facility] LABCLIA [id number] [place] [address] [place] HBV core Ab Ser Qlon 025 HBV core Ab Ql (S) Negative Normal Negative [facility] Comment on above: Order Comment: Ian lassiter Type: BLOOD SPECIMENOrdering Facility: [facility] Address: [address] [place] [address] Result Comment: No e vidence of current or past infection with Hepatitis B virus. Should recent infection be suspected, repeat testing may be considered 3-4 weeks after this draw. Performed By: #### 1 6933-4, 5195-3, 24472-0 ####[facility] LABCLIA [id number] [place] [address] [place] HBV surface Ab Ql (S)on 11-18 HBV surface Ab Qn (S) <8.00 Normal [facility] Comment on above: Order Comment: Ian lassiter Type: BLOOD SPECIMENOrdering Facility: [facility] Address: [address] [place] [address] Result Comment: <8 m IU/mL: No serological evidence of immunity to Hepatitis B Virus.>/= 8 to <12 mIU/mL: No serological evidence of immunity to Hepatitis B Virus.>/= 12 mIU/mL: Consistent with serological evidence of immunity to Hepatitis B Virus. Performed By: #### 1 6933-4, 5-3, 81557-4 ####[facility] LABCLIA [id number] [address] [address] [place] HBV surface Ab Ser Qlon 11-18 HBV surface Ab Ql (S) Negative Normal [facility] Comment on above: Order Comment: Speci men Type: BLOOD SPECIMENOrdering Facility: [facility] Address: [address] [place] [address] Result Comment: No s erological evidence of immunity to Hepatitis B Virus. Performed By: #### 1 6933-4, 5-3, 88719-1 ####[facility] LABCLIA [id number] [place] [address] [place] HBV surface Ag Ser Qlon 11-18 HBV surface Ag Ql (S) Negative Normal Negative [facility] Comment on above: Order Comment: Speci men Type: BLOOD SPECIMENOrdering Facility: [facility] Address: [address] [place] [address] Performed By: #### 1 6933-4, 5194-3, 82793-3 ####[facility] LABCLIA [id number] [address] [place] HCV Ab Ser Qlon 11-29-2024 HCV Ab Ql (S) Negative Normal Negative [facility] Comment on above: Order Comment: Speci men Type: BLOOD SPECIMENOrdering Facility: [facility] Address: [address] [place] [address] Result Comment: The result suggests no evidence of active infection with Hepatitis C virus. Should recent infection be suspected, repeat testing may be considered 4-6 weeks after this draw. Performed By: #### 1 6128-1 ####[facility] LABCLIA [id number] [place] [address] [place] HIGH SENSITIVITY TROPONIN To n 11-29-2024 Troponin T.cardiac High sensitivity method [Mass/Vol] 129 ng/L High <12 [facility] Comment on above: Order Comment: Speci men Type: BLOOD SPECIMENOrdering Facility: [facility] Address: [address] [place] [address] Performed By: #### H STNT ####[facility] LABIA [id number] [place] [address] [place] Keily-1 extractable nuclear Ab Qn (S)on 11-29-2024 KEILY 1 ANTIBODY QUAL Negative Normal Negative [facility] Comment on above: Order Comment: Speci men Type: BLOOD SPECIMENOrdering Facility: [facility] Address: [address] [place] [address] Result Comment: Anti -KEILY-1 antibody is used as an aid in diagnosis of polymyositis and dermatomyositis especially with pulmonary involvement. A negative result cannot rule out polymyositis or dermatomyositis. Clinical correlation is required.Test Methodology: Multiplex flow immunoassay. Performed By: #### A NAIFR, 70113-3, 01790-2, 39904-5, 63690-4, 27772-7, 94242-5, 92951-6, 13237-0, 85321-8, 6457-6 ####[facility] LABIA [id number] [place] [address] [place] Magnesium SerPl-mCncon 11-29 Magnesium [Mass/Vol] 2.3 mg/dL Normal 1.7-2.3 [facility] Comment on above: Order Comment: Speci men Type: BLOOD SPECIMENOrdering Facility: [facility] Address: [address] [place] [address] Performed By: #### 2 4323-8, 56850-3, 2777-1 ####[facility] LABIA [id number] [place] [address] [place] Phosphate SerPl-mCncon 11-29 Phosphate [Mass/Vol] 3.3 mg/dL Normal 2.7-4.8 [facility] Comment on above: Order Comment: Ian lassiter Type: BLOOD SPECIMENOrdering Facility: [facility] Address: [address] [place] [address] Performed By: #### 2 4323-8, 22837-6, 2777-1 ####[facility] LABIA [id number] [place] [address] [place] Ribonucleoprotein extractabl e nuclear Ab Qn (S)on 11-29-2024 ANTI-[employer] QUAL Negative Normal Negative [facility] Comment on above: Order Comment: Ian lassiter Type: BLOOD SPECIMENOrdering Facility: [facility] Address: [address] [place] [address] Performed By: #### A NAIFR, 25226-4, 83426-0, 87483-2, 11277-3, 62490-2, 22756-7, 80072-6, 76310-7, 97235-9, 6457-6 ####[facility] [id number] [place] [address] [place] RIBOSOMAL [employer] QUAL Negative Normal Negative [facility] Comment on above: Order Comment: Ian lassiter Type: BLOOD SPECIMENOrdering Facility: [facility] Address: [address] [place] [address] Result Comment: Anti -Ribosomal RNA (Ribosomal P) antibody is used as an aid in diagnosis of systemic autoimmune diseases especially systemic lupus erythematosus and mixed connective tissue disease. Cross-reactivity with Anti-dawkins antibody is not uncommon. Clinical correlation is required.Test Methodology: Multiplex flow immunoassay. Performed By: #### A NAIFR, 77839-2, 96349-1, 83524-6, 89523-5, 61462-0, 44444-1, 48140-5, 21510-6, 76547-7, 6457-6 ####[facility] LABIA [id number] [address] [address] [place] SCL-70 extractable nuclear I gG IA Qn (S)on 11-29-2024 SCLERODERMA AB QUAL Negative Normal Negative [facility] Comment on above: Order Comment: Speci men Type: BLOOD SPECIMENOrdering Facility: [facility] Address: [address] [place] [address] Performed By: #### A NAIFR, 21772-6, 29450-6, 87898-8, 39501-1, 99167-7, 11237-4, 50027-0, 45335-6, 85454-7, 6457-6 ####[facility] [id number] [place] [address] [place] SCLERODERMA IGG AB <0.2 Normal <1.0 [facility] Comment on above: Order Comment: Speci men Type: BLOOD SPECIMENOrdering Facility: [facility] Address: [address] [place] [address] Result Comment: Scl- 70/Scleroderma antibody test is used as an aid in diagnosis of systemic sclerosis especially the diffuse cutaneous form. A negative result cannot rule out systemic sclerosis. The final interpretation should consider clinical picture and other test results such as anti-centromere antibody. Test Methodology: Multiplex flow immunoassay. Performed By: #### A SANDEER, 42422-3, 26563-3, 43904-9, 51322-4, 56173-8, 22779-7, 78558-0, 32286-9, 90089-4, 6457-6 ####[facility] LABIA [id number] [place] [id number] [place] Sjogrens syndrome-A extracta ble nuclear Ab Qn (S)on 11-29-2024 SSA ANTIBODY QUAL Negative Normal Negative [facility] Comment on above: Order Comment: Speci men Type: BLOOD SPECIMENOrdering Facility: [facility] Address: [address] [place] [address] Performed By: #### A NAIFR, 01345-3, 15468-0, 54132-6, 67126-2, 61030-6, 04735-9, 98590-8, 08402-0, 08359-0, 6457-6 ####[facility] [id number] [place] [address] [place] Sjogrens syndrome-B extracta ble nuclear Ab Qn (S)on 11-29-2024 SSB ANTIBODY QUAL Negative Normal Negative [facility] Comment on above: Order Comment: Speci men Type: BLOOD SPECIMENOrdering Facility: [facility] Address: [address] [place] [address] Performed By: #### A NAIFR, 65916-7, 39548-4, 31760-8, 01235-6, 06382-9, 10586-1, 36381-0, 43176-4, 73801-1, 6457-6 ####[facility] [id number] [place] [address] [place] Dawkins extractable nuclear Ig G Qn (S)on 11-29-2024 SM ANTIBODY QUAL Negative Normal Negative [facility] Comment on above: Order Comment: Speci men Type: BLOOD SPECIMENOrdering Facility: [facility] Address: [address] [place] [address] Result Comment: Anti -Sm (Dawkins) antibody is used as an aid in diagnosis of systemic lupus erythematosus and its presence is associated with renal disease. A negative result cannot rule out systemic lupus erythematosus. Clinical correlation is required.Test Methodology: Multiplex flow immunoassay. Performed By: #### A NAIFR, 44834-1, 15806-6, 98642-8, 22820-2, 05703-7, 26766-9, 79533-2, 98586-9, 10485-2, 6457-6 ####[facility] [id number] [place] [address] [place] Urinalysis complete panel (U )on 11-29-2024 Bacteria LM.HPF (Urine sed) [#/Area] Negative Normal Negative [facility] Comment on above: Order Comment: Speci men Type: URINE SPECIMENOrdering Facility: [facility] Address: [address] [place] [address] Performed By: #### 2 4356-8 ####[facility] LABCLIA [id number] [address], [facility] [place] Bilirubin Ql (U) Negative Normal Negative [facility] Comment on above: Order Comment: Speci men Type: URINE SPECIMENOrdering Facility: [facility] Address: [address] [place] [address] Performed By: #### 2 4356-8 ####[facility] LABCLIA [id number] [place] [address] [place] Clarity (Unsp spec) Clear Normal Clear [facility] Comment on above: Order Comment: Speci men Type: URINE SPECIMENOrdering Facility: [facility] Address: [address] [place] [address] Performed By: #### 2 4356-8 ####[facility] LABCLIA [id number] [place] [address] [place] Color (U) Yellow Normal Yellow [facility] Comment on above: Order Comment: Speci men Type: URINE SPECIMENOrdering Facility: [facility] Address: [address] [place] [address] Performed By: #### 2 4356-8 ####[facility] LABCLIA [id number] [place] [id number] [place] Epithelial cells LM.HPF (Urine sed) [#/Area] None Seen Normal [facility] Comment on above: Order Comment: Speci men Type: URINE SPECIMENOrdering Facility: [facility] Address: [address] [place] [address] Performed By: #### 2 4356-8 ####[facility] LABCLIA [id number] [place] [id number] [place] Glucose Test strip (U) [Mass/Vol] Negative Normal Negative [facility] Comment on above: Order Comment: Speci men Type: URINE SPECIMENOrdering Facility: [facility] Address: [address] [place] [address] Performed By: #### 2 4356-8 ####[facility] LABCLIA [id number] [address] [place] [address] [place] Hemoglobin Ql (U) Negative Normal Negative [facility] Comment on above: Order Comment: Speci men Type: URINE SPECIMENOrdering Facility: [facility] Address: [address] [place] [address] Performed By: #### 2 4356-8 ####[facility] LABCLIA [id number] [address], [place] [address] [place] Hyaline casts (Urine sed) [#/Area] 0 /[LPF] Normal 0 /LPF [facility] Comment on above: Order Comment: Speci men Type: URINE SPECIMENOrdering Facility: [facility] Address: [address] [place] [address] Performed By: #### 2 4356-8 ####[facility] LABCLIA [id number] [address], [place] [address] [place] Ketones Ql (U) Negative Normal Negative [facility] Comment on above: Order Comment: Speci men Type: URINE SPECIMENOrdering Facility: [facility] Address: [address] [place] [address] Performed By: #### 2 4356-8 ####[facility] LABCLIA [id number] [address], [facility] [place] Leukocyte esterase Test strip Ql (U) Negative Normal Negative [facility] Comment on above: Order Comment: Speci men Type: URINE SPECIMENOrdering Facility: [facility] Address: [address] [place] [address] Performed By: #### 2 4356-8 ####[facility] LABCLIA [id number] [place] [address] [place] Nitrite Ql (U) Negative Normal Negative [facility] Comment on above: Order Comment: Speci men Type: URINE SPECIMENOrdering Facility: [facility] Address: [address] [place] [address] Performed By: #### 2 4356-8 ####[facility] LABIA [id number] [place] [address] [place] pH (U) 6.0 [pH] Normal <8.5 [facility] Comment on above: Order Comment: Speci men Type: URINE SPECIMENOrdering Facility: [facility] Address: [address] [place] [address] Performed By: #### 2 4356-8 ####[facility] LABIA [id number] [place] [address] [place] Protein (U) [Mass/Vol] Trace Abnormal Negative [facility] Comment on above: Order Comment: Speci men Type: URINE SPECIMENOrdering Facility: [facility] Address: [address] [place] [address] Performed By: #### 2 4356-8 ####[facility] LABIA [id number] [place] [address] [place] RBC LM.HPF (Urine sed) [#/Area] 0-2 /HPF Normal 0-2 /HPF [facility] Comment on above: Order Comment: Speci men Type: URINE SPECIMENOrdering Facility: [facility] Address: [address] [place] [address] Performed By: #### 2 4356-8 ####[facility] LABIA [id number] [place] [id number] [place] Specific gravity (U) [Rel density] 1.034 High 1.005-1.030 [facility] Comment on above: Order Comment: Speci men Type: URINE SPECIMENOrdering Facility: [facility] Address: [address] [place] [address] Performed By: #### 2 4356-8 ####[facility] LABIA [id number] [place] [address] [place] Urobilinogen Ql (U) 0.2 EU/dL Normal 0.2-1.0 EU/dL [facility] Comment on above: Order Comment: Speci men Type: URINE SPECIMENOrdering Facility: [facility] Address: [address] [place] [address] Performed By: #### 2 4356-8 ####[facility] [id number] [place] [address] [place] WBC LM.HPF (Urine sed) [#/Area] 0-5 /HPF Normal 0-5 /HPF [facility] Comment on above: Order Comment: Speci men Type: URINE SPECIMENOrdering Facility: [facility] Address: [address] [place] [address] Performed By: #### 2 4356-8 ####[facility] [id number] [place] [address] [place] XR ABDOMEN 1V SUPINEon 11-29 XR ABDOMEN 1V SUPINE Normal [facility] dsDNA Ab Ser Ql CLIFon 11-29 DNA double strand Ab IF Crithidia luciliae Ql (S) Negative Normal Negative [facility] Comment on above: Order Comment: Speci men Type: BLOOD SPECIMENOrdering Facility: [facility] Address: [address] [place] [address] Result Comment: Crit hidia luciliae assay is used as an aid in diagnosis of systemic lupus erythematosus (SLE). A negative result cannot rule out SLE. Low positive titers may be seen with other systemic autoimmune diseases. Clinical correlation is required. Performed By: #### A NAIFR, 09154-9, 07616-4, 09668-6, 40515-7, 69673-0, 75424-3, 61423-6, 96267-8, 72439-6, 6457-6 ####[facility] LABCLIA [id number] [place] [address] [place] 12 Lead EKGon 11-28-2024 12 Lead EKG [facility] Cardiovascular Services [address] [place] [address] 12 Lead EKG 11/28/24 1752 MR#: [id number] Acct: [id number] Name: LEANA CAMEJO Rep #: [id number] : 1940 84 From: Beronica Turcios MD Attending Dr: Status: DEP ER Ordering Dr: Nate Gray MD Date: 11/28/24 Location: ED Sex: M C Admitted: Test Reason : AAA Blood Pressure : */* mmHG Vent. Rate : 87 BPM Atrial Rate : 87 BPM P-R Int : 158 ms QRS Dur : 88 ms QT Int : 388 ms P-R-T Axes : 57 33 -15 degrees QTcB Int : 466 ms Normal sinus rhythm T wave abnormality, consider inferolateral ischemia Prolonged QT Abnormal ECG Confirmed by NICO LAWTON, RICHARD ([id number]), newspaper or periodical editor BENITA NUNN ([id number]) on 12/04/2024 11:27:45 AM Referred By: Confirmed By: RICHARD TURCIOS MD 12/04/24 1127 Date Beronica Turcios MD CC: Dr. Nate Gray MD; Dr. Dallas Reed MD Signed Normal [facility] Abdomen/Pelvis W IV Cont ONL Yon 11-28-2024 Abdomen/Pelvis W IV Cont ONLY [facility] Imaging Services [address] [place], [place] [id number] Abdomen/Pelvis W IV Cont ONLY MR#: [id number] Acct: [id number] Name: LEANA CAMEJO Rep #: [id number] : 1940 M 84 From: Alexandru Lucero i, MD PCP: Dr. Dallas Reed MD Status: PRE ER Study: Abdomen/Pelvis W IV Cont ONLY Date of Exam: Exam# [id number] Ordering Dr: Nate Gray MD PROCEDURE: ABDOMEN/PELVIS W IV CONT ONLY REASON FOR EXAM: ABD PAIN W/ KNOWN AAA TECHNIQUE: Abdomen and pelvis CT with intravenous contrast. IV CONTRAST: COMPARISON: CT abdomen/pelvis dated 12/27/2023. FINDINGS: There are streaky changes at the lung bases. Calcified granulomas in the right lung base. There is no pleural or pericardial effusion. There is no free air within the abdomen or pelvis. There are scattered granulomas within the liver. There is tiny hypodense structures present within the liver, which may represent cysts, but incompletely characterized. The spleen has increased in size since prior examination and measures up to 17.9 cm in craniocaudal dimension (previously measured up to 16 cm on 12/27/2023). The adrenals are within normal limits. The pancreas is moderately atrophic. 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 This was present on prior examination the kidneys are without evidence of hydronephrosis or obstructive uropathy. Urinary bladder is distended. A large posterior right urinary bladder diverticulum is present, similar to prior examination. Extensive sigmoid diverticulosis is present. No definite CT evidence for acute diverticulitis. There is no bowel obstruction identified. There is thickening of the GE junction. Duodenal diverticulum is noted. Correlate clinically for ischial reflux disease. The patient has undergone repair of abdominal aortic aneurysm. The aneurysmal sac measures up to 6.1 (AP) by 5.8 (TV) cm. This previously measured up to 5.9 (AP) by 5.5 (TV) cm when measured by this seen observer. There are several areas of abnormal enhancement within the sac of the [place] aorta which are consistent with endoleak arising from likely the MUNDO and posterior lumbar arteries. The endoleak appears to be increased when compared to prior examination. 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 Status post right total hip arthroplasty. No evidence of fracture or acute osseous abnormalities identified. CT/Abdomen/Pelvis W IV Cont ONLY IMPRESSION: Interval increase in size of the abdominal aortic aneurysmal sac when compared to prior examination. Interval increase in contrast blush within the [place] aortic sac. 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 Recommend vascular surgery/IR consultation for repair of the endoleak. 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 If patient is complaining of upper abdominal pain, duodenal ulcer can not be ruled out. Patient may benefit from direct visualization. Progressive splenomegaly etiology to be determined. Correlate clinically for lymphoproliferative disease. Cystic mass within the body of the pancreas may suggest IPMN. Recommend GI consultation. Colonic diverticulosis without CT evidence of acute diverticulitis. Thickening of the gastroesophageal junction. Correlate for reflux disease. Other findings as above. One or more dose reduction techniques were used (e.g., Automated exposure control, adjustment of the mA and/or kV according to patient size, use of iterative reconstruction technique). Reading Location: [id number] CC: Dr. Nate Gray MD; Dr. Dallas Reed MD Disc Recordist: Signed Normal [facility] Absolute lymphocyte countOrd ered By: Nate Gray on 11-28-2024 Lymphocytes Auto (Unsp spec) [#/Vol] 0.86 10*3/uL 0.83-4.51 [facility] Absolute neutrophil countOrd ered By: Nate Gray on 11-28-2024 Neutrophils (Bld) [#/Vol] 3.6 10*3/uL 2.0-7.7 [facility] Anion gap in Serum or Plasma Ordered By: Nate Gray on 11-28-2024 Anion gap [Moles/Vol] 13 mmol/L 5-15 [facility] Automated lymphocyte count a s percentage of total leukocytesOrdered By: Nate Gray on 11-28-2024 Lymphocytes/100 WBC Auto (Unsp spec) 17.0 % Low 19-41 [facility] BUN/creatinine ratioOrdered By: Nate Gray on 11-28-2024 Urea nitrogen/Creatinine [Mass ratio] 26.9 mg/mg High 10-20 [facility] Bacteria Bld Culton 11-29-19 25 Bacteria identified Cx Nom (Bld) CULTURE, BLOOD: No growth 5 days Normal [facility] Comment on above: Performed By: #### 6 00-7 ####[facility] LABCLIA [id number] [address] [place] [address] [place] Bacteria identified Cx Nom (Bld) CULTURE, BLOOD: No growth 5 days Normal [facility] Comment on above: Performed By: #### 6 00-7 ####[facility] LABCLIA [id number] [address] [place] [address] [place] Basophil percentageOrdered B y: Nate Gray on 11-28-2024 Basophils/100 WBC (Bld) 0.6 % 0-1 [facility] Bilirubin Test strip Ql (U)O rdered By: Nate Gray on 11-28-2024 Bilirubin Ql (U) Negative Negative [facility] Bilirubin, totalOrdered By: Nate Gray on 11-28-2024 Bilirubin [Mass/Vol] 0.47 mg/dL 0.00-1.30 [facility] Blood manual differential co mment interpretation (narrative result)Ordered By: Nate Gray on 11-28-2024 Manual differential comment Juvenal (Bld) [Interp] SEE COMMENT [facility] Comment on above: THROMBOCYTOPENIA NOT ED CBC W/Diff, Automatedon 11-18 Anisocytosis Ql (Bld) RARE Normal [facility] Comment on above: Performed By: #### L 501.2450, L100.0100, BTS, L500.4050 #### [facility] [address] [place], [address] MACROCYTOSIS RARE Normal [facility] Comment on above: Performed By: #### L 501.2450, L100.0100, BTS, L500.4050 #### [facility] [address] [place], [address] PLT EST MOD DEC Normal ADEQ [facility] Comment on above: Performed By: #### L 501.2450, L100.0100, BTS, L500.4050 #### [facility] [address] [place], [address] RED CELL MORPH N CHROM Normal NORM C C [facility] Comment on above: Performed By: #### L 501.2450, L100.0100, BTS, L500.4050 #### [facility] [address] [place], [address] SMEAR COMMENT SEE COMMENT Normal [facility] Comment on above: Result Comment: THRO MBOCYTOPENIA NOTED Performed By: #### L 501.2450, L100.0100, BTS, L500.4050 #### [facility] [address] [place], [address] CBC panel Auto (Bld)on 11-28 Erythrocyte distribution width (RBC) [Ratio] 14.9 % Normal 11.5-15.0 [facility] Comment on above: Order Comment: Speci men Type: BLOOD SPECIMENOrdering Facility: [facility] Address: [address] [place] [address] Performed By: #### 3 1201-7, 94435-3 ####[facility] LABCLIA [id number] [place] [id number] [place] Hematocrit (Bld) [Volume fraction] 33.6 % Low 39.0-51.0 [facility] Comment on above: Order Comment: Speci men Type: BLOOD SPECIMENOrdering Facility: [facility] Address: [address] [place] [address] Performed By: #### 3 1201-7, 67523-7 ####[facility] LABCLIA [id number] [place] [id number] [place] Hemoglobin (Bld) [Mass/Vol] 11.0 g/dL Low 13.0-17.0 [facility] Comment on above: Order Comment: Speci men Type: BLOOD SPECIMENOrdering Facility: [facility] Address: [address] [place] [address] Performed By: #### 3 1201-7, 76140-0 ####[facility] LABCLIA [id number] [place] [address] [place] MCH (RBC) [Entitic mass] 30.0 pg Normal 26.0-34.0 [facility] Comment on above: Order Comment: Speci men Type: BLOOD SPECIMENOrdering Facility: [facility] Address: [address] [place] [address] Performed By: #### 3 1201-7, 78547-6 ####[facility] LABCLIA [id number] [place] [address] [place] MCHC (RBC) [Mass/Vol] 32.7 g/dL Normal 30.5-36.0 [facility] Comment on above: Order Comment: Speci men Type: BLOOD SPECIMENOrdering Facility: [facility] Address: [address] [place] [address] Performed By: #### 3 1201-7, 67703-6 ####[facility] LABIA [id number] [place] [address] [place] MCV (RBC) [Entitic vol] 91.6 fL Normal 80.0-100.0 [facility] Comment on above: Order Comment: Speci men Type: BLOOD SPECIMENOrdering Facility: [facility] Address: [address] [place] [address] Performed By: #### 3 1201-7, 96710-4 ####[facility] LABCLIA [id number] [place] [address] [place] Nucleated RBC (Bld) [#/Vol] 10*3/uL Normal <0.01 [facility] Comment on above: Order Comment: Speci men Type: BLOOD SPECIMENOrdering Facility: [facility] Address: [address] [place] [address] Performed By: #### 3 1201-7, 70497-1 ####[facility] LABIA [id number] [place] [address] [place] Platelet mean volume (Bld) [Entitic vol] 10.2 fL Normal 9.0-12.7 [facility] Comment on above: Order Comment: Speci men Type: BLOOD SPECIMENOrdering Facility: [facility] Address: [address] [place] [address] Performed By: #### 3 1201-7, 47020-2 ####[facility] LABCLIA [id number] [place] [id number] [place] Platelets (Bld) [#/Vol] 85 10*3/uL Low 150-400 [facility] Comment on above: Order Comment: Speci men Type: BLOOD SPECIMENOrdering Facility: [facility] Address: [address] [place] [address] Performed By: #### 3 1201-7, 73030-7 ####[facility] LABCLIA [id number] [place] [address] [place] RBC (Bld) [#/Vol] 3.67 10*6/uL Low 4.20-6.00 [facility] Comment on above: Order Comment: Speci men Type: BLOOD SPECIMENOrdering Facility: [facility] Address: [address] [place] [address] Performed By: #### 3 1201-7, 05811-0 ####[facility] LABCLIA [id number] [place] [id number] [place] WBC (Bld) [#/Vol] 4.84 10*3/uL Normal 3.70-11.00 [facility] Comment on above: Order Comment: Speci men Type: BLOOD SPECIMENOrdering Facility: [facility] Address: [address] [place] [address] Performed By: #### 3 1201-7, 73295-4 ####[facility] LABCLIA [id number] [address] [address] [place] CNCRITCRon 11-28-2024 CNCRITCR Normal [facility] CNPNon 11-28-2024 CNPN Normal [facility] CONFIRM BLOOD TYPEon 025 ABO O Normal [facility] Comment on above: Order Comment: Speci men Type: BLOOD SPECIMENOrdering Facility: [facility] Address: [address] [place] [address] Performed By: #### C ONABO ####[facility] BLO[facility] BANKCLIA [id number] [place] [address] [place] Rh Nom (Bld) Negative Normal [facility] Comment on above: Order Comment: Speci men Type: BLOOD SPECIMENOrdering Facility: [facility] Address: [address] [place] [address] Performed By: #### C ONABO ####[facility] MAIN BLOOD BANKCLIA [id number] [place] [address] [place] CT ABD/PEL W IVCONon 025 CT ABD/PEL W IVCON Normal [facility] CT Abdomen and Pelvis W cont rast Adina 11-28-2024 IMPRESSION: 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 There has been interval enlargement of the [place] lumen consistent with a hemodynamically significant leak. Enlargement pancreatic cystic mass. When condition permits suggest correlation with contrast enhanced pancreatic MRI. Diverticulosis Urinary bladder diverticulum. Disc Recordist: [facility] Transcribe Date/Time: Nov 28 2024 4:21P Dictated by : TONE GA MD This examination was interpreted and the report reviewed and electronically signed by: TONE GA MD on Nov 28 2024 4:40PM [facility] DIVISION OF RADIOLOGY * * *Final Report* * * DATE OF EXAM: Nov 28 2024 3:49PM [facility] 0530 - CT ABD/PEL W IVCON / PROCEDURE REASON: multiple diagnoses * * * * Physician Interpretation * * * * EXAMINATION: CT ABDOMEN AND PELVIS WITH IV CONTRAST CLINICAL HISTORY: Left lower quadrant pain TECHNIQUE: CT of the abdomen and pelvis was performed using standard technique, scanning from just above the dome of the diaphragm to the symphysis pubis. MQ: CTAP_3 Contrast: IV: 100 ml of Omnipaque 350 Oral: 10 ml of Omni 240 10-25ml diluted with water CT Radiation dose: Integrated Dose-length product (DLP) for this visit = 524 mGy*cm. CT Dose Reduction Employed: Automated exposure control(AEC) and iterative recon COMPARISON: Outside CT abdomen/pelvis dated 12/27/2023. RESULT: Liver: No mass. Mildly nodular contour. Biliary: No bile duct dilation. Gallbladder is unremarkable. Spleen: No mass. Enlarged with a length of 18.8 cm stable or slightly larger than on prior study Pancreas: Mid pancreatic body low-attenuation density 1.2 x 1.6 x 2.0 cm (5:54). Previously 0.7-1.1 cm. No ductal dilatation is evident. Adrenals: No mass. Kidneys: No hydronephrosis or calculus. Low-attenuation medial RIGHT renal density consistent with a cyst about 1.2 cm in diameter. GI tract: No dilation or wall thickening. There is generalized distal colonic diverticulosis. Appendix not visualized. Lymph nodes: No abdominal or pelvic lymphadenopathy. Mesentery/Peritoneum: No ascites or mass. Retroperitoneum: No mass. Vasculature: - Abdominal aorta and iliac arteries: Status post aortoiliac endoluminal stenting. The maximal diameter of the [place] abdominal aorta is 6.0 x 6.0 cm. This is enlarged from prior dimensions of 5.4 x 5.6 cm. There is irregular contrast enhancement in the LEFT side of the [place] lumen similar to prior study. The enhancement is continuous with enhancing inferior mesenteric artery. - Celiac and SMA: Atherosclerotic calcifications at the origins. - Portal venous system (SMV, splenic vein, portal vein and branches): Patent. - Hepatic veins: Incompletely opacified, likely due to early phase of enhancement. Pelvis: No mass, ascites or fluid collection. There is a posterior RIGHT-sided urinary bladder diverticulum about 6 x 3.5 cm in diameter. Assessment lower pelvis somewhat limited by artifact from RIGHT hip prosthesis Bones/Soft Tissues: Status post RIGHT total hip arthroplasty. There are degenerative changes to the lower thoracic and lumbar spine. Lower thorax: No acute infiltrate or pleural effusion. Localizer images: Unremarkable. DIVISION OF RADIOLOGY Provider, Magda Brower [facility] - 11/28/2024 * * *Final Report* * * DATE OF EXAM: Nov 28 2024 3:49PM [facility] 0530 - CT ABD/PEL W IVCON / PROCEDURE REASON: multiple diagnoses * * * * Physician Interpretation * * * * EXAMINATION: CT ABDOMEN AND PELVIS WITH IV CONTRAST CLINICAL HISTORY: Left lower quadrant pain TECHNIQUE: CT of the abdomen and pelvis was performed using standard technique, scanning from just above the dome of the diaphragm to the symphysis pubis. MQ: CTAP_3 Contrast: IV: 100 ml of Omnipaque 350 Oral: 10 ml of Omni 240 10-25ml diluted with water CT Radiation dose: Integrated Dose-length product (DLP) for this visit = 524 mGy*cm. CT Dose Reduction Employed: Automated exposure control(AEC) and iterative recon COMPARISON: Outside CT abdomen/pelvis dated 12/27/2023. RESULT: Liver: No mass. Mildly nodular contour. Biliary: No bile duct dilation. Gallbladder is unremarkable. Spleen: No mass. Enlarged with a length of 18.8 cm stable or slightly larger than on prior study Pancreas: Mid pancreatic body low-attenuation density 1.2 x 1.6 x 2.0 cm (5:54). Previously 0.7-1.1 cm. No ductal dilatation is evident. Adrenals: No mass. Kidneys: No hydronephrosis or calculus. Low-attenuation medial RIGHT renal density consistent with a cyst about 1.2 cm in diameter. GI tract: No dilation or wall thickening. There is generalized distal colonic diverticulosis. Appendix not visualized. Lymph nodes: No abdominal or pelvic lymphadenopathy. Mesentery/Peritoneum: No ascites or mass. Retroperitoneum: No mass. Vasculature: - Abdominal aorta and iliac arteries: Status post aortoiliac endoluminal stenting. The maximal diameter of the [place] abdominal aorta is 6.0 x 6.0 cm. This is enlarged from prior dimensions of 5.4 x 5.6 cm. There is irregular contrast enhancement in the LEFT side of the [place] lumen similar to prior study. The enhancement is continuous with enhancing inferior mesenteric artery. - Celiac and SMA: Atherosclerotic calcifications at the origins. - Portal venous system (SMV, splenic vein, portal vein and branches): Patent. - Hepatic veins: Incompletely opacified, likely due to early phase of enhancement. Pelvis: No mass, ascites or fluid collection. There is a posterior RIGHT-sided urinary bladder diverticulum about 6 x 3.5 cm in diameter. Assessment lower pelvis somewhat limited by artifact from RIGHT hip prosthesis Bones/Soft Tissues: Status post RIGHT total hip arthroplasty. There are degenerative changes to the lower thoracic and lumbar spine. Lower thorax: No acute infiltrate or pleural effusion. Localizer images: Unremarkable. 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 There has been interval enlargement of the [place] lumen consistent with a hemodynamically significant leak. Enlargement pancreatic cystic mass. When condition permits suggest correlation with contrast enhanced pancreatic MRI. Diverticulosis Urinary bladder diverticulum. Disc Recordist: PSCB Transcribe Date/Time: Nov 28 2024 4:21P Dictated by : TONE GA MD This examination was interpreted and the report reviewed and electronically signed by: TNOE GA MD on Nov 28 2024 4:40PM EST [facility] Radiology Study observation (narrative) [facility] CT Abdomen and Pelvis W cont rast IVOrdered By: Ccf Provider on 11-28-2024 [facility] Carbon dioxide, total [Moles /volume] in Central venous bloodOrdered By: Nate Gray on 11-28-2024 CO2 [Moles/Vol] 24.5 mmol/L 21.0-32.0 [facility] Chloride assayOrdered By: Emory Gray on 11-28-2024 Chloride [Moles/Vol] 99 mmol/L 98-108 [facility] Comprehensive Metabolic Prof ilon 11-28-2024 Albumin [Mass/Vol] 4.0 g/dL Normal 3.4-4.8 [facility] Comment on above: Performed By: #### L 501.2450, L100.0100, BTS, L500.4050 #### [facility] [address] [place], [address] Albumin/Globulin [Mass ratio] 1.3 {ratio} Normal 0.9-2.4 [facility] Comment on above: Performed By: #### L 501.2450, L100.0100, BTS, L500.4050 #### [facility] [address] [place], [address] ALK PHOS 66 U/L Normal 40-129 [facility] Comment on above: Performed By: #### L 501.2450, L100.0100, BTS, L500.4050 #### [facility] [address] [place], [address] ALT [Catalytic activity/Vol] 24 U/L Normal <=46 [facility] Comment on above: Performed By: #### L 501.2450, L100.0100, BTS, L500.4050 #### [facility] [address] [place], [address] AST [Catalytic activity/Vol] 33 U/L Normal <=37 [facility] Comment on above: Performed By: #### L 501.2450, L100.0100, BTS, L500.4050 #### [facility] [address] [place], [address] Bilirubin [Mass/Vol] 0.47 mg/dL Normal 0.00-1.30 [facility] Comment on above: Performed By: #### L 501.2450, L100.0100, BTS, L500.4050 #### [facility] [address] [place], [address] BUN/CRE 26.9 RATIO High 10-20 [facility] Comment on above: Performed By: #### L 501.2450, L100.0100, BTS, L500.4050 #### [facility] [address] [place], [address] Calcium [Mass/Vol] 9.4 mg/dL Normal 7.6-11.0 [facility] Comment on above: Performed By: #### L 501.2450, L100.0100, BTS, L500.4050 #### [facility] [address] [place], [address] Chloride [Moles/Vol] 99 mmol/L Normal 98-108 [facility] Comment on above: Performed By: #### L 501.2450, L100.0100, BTS, L500.4050 #### [facility] [address] [place], [address] CO2 [Moles/Vol] 24.5 mmol/L Normal 21.0-32.0 [facility] Comment on above: Performed By: #### L 501.2450, L100.0100, BTS, L500.4050 #### [facility] [address] [place], [address] Creatinine [Mass/Vol] 1.43 mg/dL High 0.70-1.20 [facility] Comment on above: Performed By: #### L 501.2450, L100.0100, BTS, L500.4050 #### [facility] [address] [place], [address] ECRCL 37.20 ml/min Low 50-250 [facility] Comment on above: Performed By: #### L 501.2450, L100.0100, BTS, L500.4050 #### [facility] [address] [place], [address] GAP 13 Normal 5-15 [facility] Comment on above: Performed By: #### L 501.2450, L100.0100, BTS, L500.4050 #### [facility] [address] [place], [address] GFR/1.73 sq M.predicted among non-blacks MDRD (S/P/Bld) [Vol rate/Area] 48 mL/min/{1.73_m2} Low >60 [facility] Comment on above: Result Comment: mL/m in/1.73m2 CKD-EPI Creatinine Equation (2020) Performed By: #### L 501.2450, L100.0100, BTS, L500.4050 #### [facility] [address] [place], [address] Globulin (S) [Mass/Vol] 3.2 g/dL Normal 2.2-4.2 [facility] Comment on above: Performed By: #### L 501.2450, L100.0100, BTS, L500.4050 #### [facility] [address] [place], [address] Glucose [Mass/Vol] 140 mg/dL High 70-99 [facility] Comment on above: Performed By: #### L 501.2450, L100.0100, BTS, L500.4050 #### [facility] [address] [place], [address] Potassium [Moles/Vol] 4.0 mmol/L Normal 3.3-5.1 [facility] Comment on above: Performed By: #### L 501.2450, L100.0100, BTS, L500.4050 #### [facility] [address] [place], [address] Sodium [Moles/Vol] 137 mmol/L Normal 133-145 [facility] Comment on above: Performed By: #### L 501.2450, L100.0100, BTS, L500.4050 #### [facility] [address] [place], [address] T PROT 7.2 g/dL Normal 5.9-8.4 [facility] Comment on above: Performed By: #### L 501.2450, L100.0100, BTS, L500.4050 #### [facility] [address] [place], [address] Urea nitrogen [Mass/Vol] 39 mg/dL High 4-19 [facility] Comment on above: Performed By: #### L 501.2450, L100.0100, BTS, L500.4050 #### [facility] [address] [place], [address] Comprehensive metabolic 2000 panelon 11-28-2024 Albumin [Mass/Vol] 3.6 g/dL Low 3.9-4.9 [facility] Comment on above: Order Comment: Speci men Type: BLOOD SPECIMENOrdering Facility: [facility] Address: [address] [place] [address] Performed By: #### 3 024-7, 76734-5, HSTNT, 6-3 ####[facility] LABCLIA [id number] [place] [address] [place] ALP [Catalytic activity/Vol] 66 U/L Normal 38-113 [facility] Comment on above: Order Comment: Speci men Type: BLOOD SPECIMENOrdering Facility: [facility] Address: [address] [place] [address] Performed By: #### 3 024-7, 54385-1, HSTNT, 3016-3 ####[facility] LABCLIA [id number] [place] [address] [place] ALT [Catalytic activity/Vol] 21 U/L Normal 10-54 [facility] Comment on above: Order Comment: Speci men Type: BLOOD SPECIMENOrdering Facility: [facility] Address: [address] [place] [address] Performed By: #### 3 024-7, 78707-8, HSTNT, 6-3 ####[facility] LABCLIA [id number] [address] [address] [place] Anion gap [Moles/Vol] 10 mmol/L Normal 8-15 [facility] Comment on above: Order Comment: Speci men Type: BLOOD SPECIMENOrdering Facility: [facility] Address: [address] [place] [address] Performed By: #### 3 024-7, 66352-3, HSTNT, 3016-3 ####[facility] LABCLIA [id number] [place] [id number] [place] AST [Catalytic activity/Vol] 24 U/L Normal 14-40 [facility] Comment on above: Order Comment: Speci men Type: BLOOD SPECIMENOrdering Facility: [facility] Address: [address] [place] [address] Performed By: #### 3 024-7, 47568-3, HSTNT, 6-3 ####[facility] LABCLIA [id number] [place] [address] [place] Bilirubin [Mass/Vol] 0.3 mg/dL Normal 0.2-1.3 [facility] Comment on above: Order Comment: Speci men Type: BLOOD SPECIMENOrdering Facility: [facility] Address: [address] [place] [address] Performed By: #### 3 024-7, 37219-1, HSTNT, 3015-3 ####[facility] LABCLIA [id number] [place] [address] [place] Calcium [Mass/Vol] 8.8 mg/dL Normal 8.5-10.2 [facility] Comment on above: Order Comment: Speci men Type: BLOOD SPECIMENOrdering Facility: [facility] Address: [address] [place] [address] Performed By: #### 3 024-7, 85763-2, HSTNT, 3015-3 ####[facility] LABCLIA [id number] [place] [id number] [place] Chloride [Moles/Vol] 102 mmol/L Normal 98-107 [facility] Comment on above: Order Comment: Speci men Type: BLOOD SPECIMENOrdering Facility: [facility] Address: [address] [place] [address] Performed By: #### 3 024-7, 59792-7, HSTNT, 6-3 ####[facility] LABCLIA [id number] [place] [address] [place] CO2 [Moles/Vol] 26 mmol/L Normal 22-30 [facility] Comment on above: Order Comment: Speci men Type: BLOOD SPECIMENOrdering Facility: [facility] Address: [address] [place] [address] Performed By: #### 3 024-7, 34660-7, HSTNT, 3015-3 ####[facility] LABIA [id number] [place] [address] [place] Creatinine [Mass/Vol] 1.56 mg/dL High 0.73-1.22 [facility] Comment on above: Order Comment: Speci men Type: BLOOD SPECIMENOrdering Facility: [facility] Address: [address] [place] [address] Performed By: #### 3 024-7, 24342-2, HSTNT, 3015-3 ####[facility] [id number] [place] [address] [place] Creatinine and Glomerular filtration rate.predicted panel (S/P/Bld) 44 mL/min/1.73m??? Low >=60 [facility] Comment on above: Order Comment: Speci men Type: BLOOD SPECIMENOrdering Facility: [facility] Address: [address] [place] [address] Result Comment: [place] mated Glomerular Filtration Rate (eGFR) is calculated using the 2020 CKD-EPI creatinine equation. This equation utilizes serum creatinine, sex, and age as parameters. The creatinine assay has traceable calibration to isotope dilution-mass spectrometry. Refer to KDIGO guidelines for clinical interpretation. In patients with unstable renal function, e.g. those with acute kidney injury, the eGFR may not accurately reflect actual GFR. Performed By: #### 3 024-7, 15151-2, HSTNT, 3015-3 ####[facility] LABCLIA [id number] [address] [address] [place] Glucose [Mass/Vol] 120 mg/dL High 74-99 [facility] Comment on above: Order Comment: Speci men Type: BLOOD SPECIMENOrdering Facility: [facility] Address: [address] [place] [address] Result Comment: The [place] [employer] Association (ADA) provides guidance for cutoff values for fasting glucose and random glucose. The ADA defines fasting as no caloric intake for at least 8 hours. Fasting plasma glucose results between 100 to 125 mg/dL indicate increased risk for diabetes (prediabetes).Fasting plasma glucose results greater than or equal to 126 mg/dL meet the criteria for diagnosis of diabetes. In the absence of unequivocal hyperglycemia, results should be confirmed by repeat testing. In a patient with classic symptoms of hyperglycemia or hyperglycemic crisis, random plasma glucose results greater than or equal to 200 mg/dL meet the criteria for diagnosis of diabetes.Reference: Standards of Medical Care in Diabetes 2016, [place] [employer]. Diabetes Care. 2016.39(Suppl 1). Performed By: #### 3 024-7, 61992-1, HSTNT, 3016-3 ####[facility] LABCLIA [id number] [place] [address] [place] Protein [Mass/Vol] 6.3 g/dL Normal 6.3-8.0 [facility] Comment on above: Order Comment: Ian men Type: BLOOD SPECIMENOrdering Facility: [facility] Address: [address] [place] [address] Performed By: #### 3 024-7, 69678-6, HSTNT, 3016-3 ####[facility] LABCLIA [id number] [place] [address] [place] Sodium [Moles/Vol] 138 mmol/L Normal 136-144 [facility] Comment on above: Order Comment: Speci men Type: BLOOD SPECIMENOrdering Facility: [facility] Address: [address] [place] [address] Performed By: #### 3 024-7, 34409-3, HSTNT, 3016-3 ####[facility] LABCLIA [id number] [place] [address] [place] Urea nitrogen [Mass/Vol] 41 mg/dL High 9-24 [facility] Comment on above: Order Comment: Speci men Type: BLOOD SPECIMENOrdering Facility: [facility] Address: [address] [place] [address] Performed By: #### 3 024-7, 24969-7, HSTNT, 3016-3 ####[facility] LABCLIA [id number] [place] [address] [place] ECG COMPLETEon 11-28-2024 ECG COMPLETE Normal [facility] ECHO LIMITEDon 11-28-2024 ECHO LIMITED Normal [facility] Emergency Department Summary on 11-28-2024 Emergency Department Summary [facility] Medical Records Department [address] [place] [address] Emergency Department Summary 11/28/24 MR#: [id number] Acct: [id number] Name: LEANA CAMEJO Rep #: [id number] : 1940 84 From: Nate Gray MD PCP: Dr. Dallas Reed MD Status:PRE ER Location: ED HPI History of Present Illness Chief Complaint: General Illness Detail of Chief Complaint: Left lower quadrant abdominal pain for 5 days. Onset/Context/Timing Current Severity: Mild Maximum Severity: Mild Narrative Narrative: 84-year-old male known history of AAA with prior stent about a year ago. Patient had a prior TIA. States that he had a long 1 on Wednesday had left lower quadrant abdominal pain which she has had for 5 days and was seen by [facility] care physician's office yesterday. They did a CAT scan. CAT scan shows the AAA to be 6 cm. And his doctor's office going to get him in 1 to be seen in the emergency department. He denies any anterior abdominal pain except the left lower quadrant. He denies any vomiting or diarrhea. He denies any dysuria. Denies any fever or back pain. 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 Hyperlipidemia Diverticulosis Pre-operative cardiovascular examination Anemia 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, NYHA class 2 RSV (respiratory syncytial virus pneumonia) Shortness of breath Cough productive of purulent sputum Home Medications ???Medication ???Instructions ???Recorded ???Last Taken ???Type losartan 100 mg tablet 100 mg PO DAILY BP 05/17/19 05:30 History cholecalciferol (vitamin D3) 50 2,000 unit PO DAILY supplement 05/23/24 History mcg (2,000 unit) capsule multivitamin 1 tab PO DAILY supplement 05/18/19 05/21/24 History ascorbic acid (vitamin C) 500 mg 2,000 mg PO DAILY supplement 02/1305/23/24 History capsule carvedilol 12.5 mg tablet 12.5 mg PO BID heart #180 tabs 08/31/24 Rx doxazosin 8 mg tablet 8 mg PO QHS prostate 05/23/2411/13 History hydralazine 100 mg tablet 100 mg PO TID blood pressure 05/2308/31/24 History magnesium oxide 400 mg (241.3 mg 400 mg PO DAILY supplement 4 05/21/24 History magnesium) tablet aspirin 81 mg chewable tablet 81 mg PO BREAKFAST 30 days #30 tab s 05/24/24 08/16/24 Rx Held on 08/31/24. Instructions: Resume on 09/01/24. bempedoic acid 180 mg tablet 180 mg PO DAILY 07/11/24 Unknown H istory (Nexletol) ezetimibe 10 mg tablet 10 mg PO DAILY 07/11/24 Unknown Hi story furosemide 20 mg tablet 20 mg PO DAILY 07/11/24 Unknown Hi story tramadol 50 mg tablet 50 mg PO Q6H PRN pain 3 days #5 Unknown Rx tabs Allergy/AdvReac Type Severity Reaction Status Date / Time lisinopril Allergy Intermediate Rash Verified 11/28/24 17:53 atorvastatin calcium (From Allergy Other Verified 11/28/24 17:53 Lipitor) clonidine Allergy Unknown Verified 11/28/24 17:53 rosuvastatin calcium (From Allergy Other Verified 11/28/24 17:53 Crestor) Szbvpge-IJX-LqG Reductase Allergy Other Verified 11/28/24 17:53 Inhibitor (Tihcxqm-Fqt-Zui Reductase Inhibitor) Family History Father Lung cancer Liver cancer Mother Oral cancer Surgical History S/P spigelian hernia repair, follow-up exam S/P AAA repair History of right-sided carotid endarterectomy Hx of cataract surgery Hx of appendectomy History of tonsillectomy History of back surgery History of colonoscopy History of blepharoplasty History of inguinal hernia repair History of umbilical hernia repair 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 Denies fever. Denies vomiting or diarrhea. Denies dysuria. Constitutio (more content not included)... Normal [facility] Eosinophil percentageOrdered By: Nate Gray on 11-28-2024 Eosinophils/100 WBC (Bld) 1.6 % 0-5 [facility] Epithelial cells.squamous LM Ql (Urine sed)Ordered By: Nate Gray on 11-28-2024 Epithelial cells.squamous LM.HPF (Urine sed) [#/Area] 0 /[HPF] 0-5 [facility] Erythrocyte distribution wid th ratioOrdered By: Nate Gray on 11-28-2024 Erythrocyte distribution width (RBC) [Ratio] 14.9 % High 11.6-14.6 [facility] Erythrocyte distribution wid th standard deviationOrdered By: Nate Gray on 11-28-2024 Erythrocyte distribution width (RBC) [Entitic vol] 51.1 fL High 35.1-43.9 [facility] Erythrocyte distribution width (RBC) [Ratio] 51.1 fl High 35.1-43.9 [facility] Erythrocyte morphology asses smentOrdered By: Nate Gray on 11-28-2024 RBC morphology finding Nom (Bld) N CHROM NORMAL NORM C&C [facility] Estimation of creatinine maira aranceOrdered By: Nate Gray on 11-28-2024 Estimated Creatinine Clearance Calc 37.20 ml/min Low 50-250 [facility] GFR/1.73 sq M.predicted gabi g non-blacks MDRD (S/P/Bld) [Vol rate/Area]Ordered By: Nate Gray on 11-28-2024 Estimated GFR (MDRD) Non-Af Amer 48 Low >60 [facility] Comment on above: mL/min/1.73m2 CKD-EP I Creatinine Equation (2020) Gas + CO Pnl BldVon 11-29-19 25 Potassium [Moles/Vol] 4.2 mmol/L Normal 3.7-5.1 [facility] Comment on above: Order Comment: Speci men Type: VENOUS BLOOD SPECIMENOrdering Facility: [facility] Address: [address] [place] [address] Performed By: #### 2 4344-4 ####[facility] LABCLIA [id number] [address] [place] Order Comment: Speci men Type: BLOOD SPECIMENOrdering Facility: [facility] Address: [address] [place] [address] Performed By: #### 3 024-7, 60618-7, HSTNT, 3016-3 ####[facility] LABCLIA [id number] [address] [place] Gas and Carbon monoxide pane l (BldV)on 11-28-2024 Base excess Calc (BldV) [Moles/Vol] 4 mmol/L High 0-2 [facility] Comment on above: Order Comment: Speci men Type: VENOUS BLOOD SPECIMENOrdering Facility: [facility] Address: [address] [place] [address] Performed By: #### 2 4344-4 ####[facility] LABCLIA [id number] [place] [address] [place] Body temperature 98.6 [degF] Normal [facility] Comment on above: Order Comment: Speci men Type: VENOUS BLOOD SPECIMENOrdering Facility: [facility] Address: [address] [place] [address] Performed By: #### 2 4344-4 ####[facility] LABIA [id number] [place] [address] [place] Calcium.ionized (Bld) [Mass/Vol] 1.24 mmol/L Normal 1.08-1.30 [facility] Comment on above: Order Comment: Speci men Type: VENOUS BLOOD SPECIMENOrdering Facility: [facility] Address: [address] [place] [address] Performed By: #### 2 4344-4 ####[facility] [id number] [place] [address] [place] Calcium.ionized adjusted to pH 7.4 (BldA) [Moles/Vol] 1.25 mmol/L Normal 1.08-1.30 [facility] Comment on above: Order Comment: Speci men Type: VENOUS BLOOD SPECIMENOrdering Facility: [facility] Address: [address] [place] [address] Performed By: #### 2 4344-4 ####[facility] LABIA [id number] [place] [address] [place] Carboxyhemoglobin (BldV) [Mass fraction] 1.6 % Normal 0.0-2.0 [facility] Comment on above: Order Comment: Speci men Type: VENOUS BLOOD SPECIMENOrdering Facility: [facility] Address: [address] [place] [address] Result Comment: Carb oxyhemoglobin Reference Range for Smokers: 2.0-8.0% Performed By: #### 2 4344-4 ####[facility] LABIA [id number] [id number] [address] [place] CO2 (BldV) [Partial pressure] 44 mm[Hg] Normal 42-55 [facility] Comment on above: Order Comment: Speci men Type: VENOUS BLOOD SPECIMENOrdering Facility: [facility] Address: [address] [place] [address] Performed By: #### 2 4344-4 ####[facility] LABCLIA [id number] [place] [address] [place] Glucose [Mass/Vol] 119 mg/dL High 60-105 [facility] Comment on above: Order Comment: Speci men Type: VENOUS BLOOD SPECIMENOrdering Facility: [facility] Address: [address] [place] [address] Performed By: #### 2 4344-4 ####[facility] LABCLIA [id number] [place] [id number] [place] HCO3 (Bld) [Moles/Vol] 28 mmol/L Normal 24-28 [facility] Comment on above: Order Comment: Speci men Type: VENOUS BLOOD SPECIMENOrdering Facility: [facility] Address: [address] [place] [address] Performed By: #### 2 4344-4 ####[facility] LABCLIA [id number] [place] [id number] [place] Hematocrit (Bld) [Volume fraction] 35.6 % Low 39.0-51.0 [facility] Comment on above: Order Comment: Speci men Type: VENOUS BLOOD SPECIMENOrdering Facility: [facility] Address: [address] [place] [address] Performed By: #### 2 4344-4 ####[facility] LABCLIA [id number] [place] [id number] [place] Hemoglobin (Bld) [Mass/Vol] 11.5 g/dL Low 13.0-17.0 [facility] Comment on above: Order Comment: Speci men Type: VENOUS BLOOD SPECIMENOrdering Facility: [facility] Address: [address] [place] [address] Performed By: #### 2 4344-4 ####[facility] LABCLIA [id number] [place] [id number] [place] Lactate [Moles/Vol] 0.9 mmol/L Normal 0.5-2.2 [facility] Comment on above: Order Comment: Speci men Type: VENOUS BLOOD SPECIMENOrdering Facility: [facility] Address: [address] [place] [address] Performed By: #### 2 4344-4 ####[facility] LABIA [id number] [place] [address] [place] LITERS 3 Liters/min Normal [facility] Comment on above: Order Comment: Speci men Type: VENOUS BLOOD SPECIMENOrdering Facility: [facility] Address: [address] [place] [address] Performed By: #### 2 4344-4 ####[facility] LABCLIA [id number] [place] [id number] [place] Methemoglobin (Bld) [Mass fraction] 0.7 % Normal 0.0-1.5 [facility] Comment on above: Order Comment: Speci men Type: VENOUS BLOOD SPECIMENOrdering Facility: [facility] Address: [address] [place] [address] Performed By: #### 2 4344-4 ####[facility] LABIA [id number] [place] [id number] [place] O2 THERAPY NC = Nasal Cannula Normal [facility] Comment on above: Order Comment: Speci men Type: VENOUS BLOOD SPECIMENOrdering Facility: [facility] Address: [address] [place], [place] [address] Performed By: #### 2 4344-4 ####[facility] LABIA [id number] [address] [id number] [address] [place] Oxygen (BldV) [Partial pressure] 53 mm[Hg] High 35-45 [facility] Comment on above: Order Comment: Speci men Type: VENOUS BLOOD SPECIMENOrdering Facility: [facility] Address: [address] [place], [place] [address] Performed By: #### 2 4344-4 ####[facility] LABCLIA [id number] [address] [address] [place] Oxygen saturation in Venous blood 88 % High 60-85 [facility] Comment on above: Order Comment: Speci men Type: VENOUS BLOOD SPECIMENOrdering Facility: [facility] Address: [address] [place] [address] Performed By: #### 2 4344-4 ####[facility] LABCLIA [id number] [address] [address] [place] Oxyhemoglobin (BldV) [Mass fraction] 86 % High 60-85 [facility] Comment on above: Order Comment: Speci men Type: VENOUS BLOOD SPECIMENOrdering Facility: [facility] Address: [address] [place], [place] [address] Performed By: #### 2 4344-4 ####[facility] LABCLIA [id number] [address] [address] [place] pH (BldV) 7.42 [pH] Normal 7.32-7.42 [facility] Comment on above: Order Comment: Speci men Type: VENOUS BLOOD SPECIMENOrdering Facility: [facility] Address: [address] [place], [place] [address] Performed By: #### 2 4344-4 ####[facility] LABCLIA [id number] [address] [address] [place] Sodium [Moles/Vol] 137 mmol/L Normal 136-144 [facility] Comment on above: Order Comment: Speci men Type: VENOUS BLOOD SPECIMENOrdering Facility: [facility] Address: [address] [place], [place] [address] Performed By: #### 2 4344-4 ####[facility] LABCLIA [id number] [place] [address] [place] Glomerular filtration rate ( GFR) estimation/1.73 sq m using serum, plasma, or whole bOrdered By: Nate Gray on 11-28-2024 GFR/1.73 sq M.predicted among non-blacks MDRD (S/P/Bld) [Vol rate/Area] 48 mL/min/{1.73_m2} Low >60 [facility] Comment on above: mL/min/1.73m2 CKD-EP I Creatinine Equation (2020) Glucose Ql (U)Ordered By: Emory Gray on 11-28-2024 Urine Glucose (UA) Normal mg/dl Normal [facility] HIGH SENSITIVITY TROPONIN To n 11-28-2024 Troponin T.cardiac High sensitivity method [Mass/Vol] 131 ng/L High <12 [facility] Comment on above: Order Comment: Speci men Type: BLOOD SPECIMENOrdering Facility: [facility] Address: [address] [place] [address] Performed By: #### 3 024-7, 03570-2, HSTNT, 3016-3 ####[facility] LABIA [id number] [place] [address] [place] HISTORY PHYSICALon 5 HISTORY PHYSICAL Normal [facility] HIV 1+2 Ab IA Qlon 5 HIV 1 and 2 Ab IA.rapid Nom (S/P/Bld) Normal [facility] Comment on above: Order Comment: Speci men Type: BLOOD SPECIMENOrdering Facility: [facility] Address: [address] [place] [address] Result Comment: Test not indicated. Performed By: #### 3 1201-7, 63026-2 ####[facility] LABIA [id number] [place] [address] [place] HIV 1+2 Ab+HIV1 p24 Ag IA Ql Non-Reactive Normal Nonreactive [facility] Comment on above: Order Comment: Speci men Type: BLOOD SPECIMENOrdering Facility: [facility] Address: [address] [place] [address] Performed By: #### 3 1201-7, 87028-5 ####[facility] LABCLIA [id number] [place] [address] [place] HIV immunoassay testing algorithm interpretation (S/P/Bld) [Interp] Normal [facility] Comment on above: Order Comment: Speci men Type: BLOOD SPECIMENOrdering Facility: [facility] Address: [address] [place] [address] Result Comment: No e vidence of HIV-1 or HIV-2 infection. Should recent infection be suspected, repeat testing may be considered 2-3 weeks after this draw.[place]ush Rev. Code 3701.243(E): This information has been disclosed to you from confidential records protected from disclosure by state law. ???You shall make no further disclosure of this information without the specific, written, and informed release of the individual to whom it pertains or as otherwise permitted by state law. A general authorization for the release of medical or other information is not sufficient for the purpose of the release of HIV test results or diagnoses. Performed By: #### 3 1201-7, 81105-7 ####[facility] LABCLIA [id number] [place] [address] [place] Hematocrit Auto (Bld) [Volum e fraction]Ordered By: Nate Gray on 11-28-2024 Hematocrit (Bld) [Volume fraction] 38.5 % Low 40-54 [facility] Hemoglobin measurementOrdere d By: Nate Gray on 11-28-2024 Hemoglobin (Bld) [Mass/Vol] 12.4 g/dL Low 13.0-16.5 [facility] Immature granulocytes/100 WB C Auto (Bld)Ordered By: Nate Gray on 11-28-2024 Immature granulocytes/100 WBC (Bld) 0.400 % 0.0-0.9 [facility] Comment on above: IG% - Immature Granu locytes (promyelocytes, myelocytes and metamyelocytes) > 1% indicates that a LEFT SHIFT is Present. Ketones Test strip Ql (U)Ord ered By: Nate Gray on 11-28-2024 Ketones Ql (U) Negative Negative [facility] Laboratory - Chemistry and C hemistry - challengeOrdered By: Nate Gray on 11-28-2024 AST [Catalytic activity/Vol] 33 U/L <38 [facility] Laboratory - Hematology and Cell countsOrdered By: Nate Gray on 11-28-2024 Anisocytosis Ql (Bld) RARE [facility] Lipaseon 11-28-2024 Lipase [Catalytic activity/Vol] 38 U/L Normal 13-75 [facility] Comment on above: Result Comment: Verona rose note: LIPASE revised reference range effective 22. New Lipase methodology. Expected to produce lower values than the previous assay method. NEW Reference Range: 13 - 75 U/L Performed By: #### L 501.2450, L100.0100, BTS, L500.4050 #### [facility] [address] [place], [address] Lipase measurementOrdered By : Nate Gray on 11-28-2024 Lipase [Catalytic activity/Vol] 38 U/L 13-75 [facility] Comment on above: Please note:LIPASE r evised reference range effective 22. New Lipase methodology. Expected to produce lower values than the previous assay method. NEW Reference Range: 13 - 75 U/L Lymphocytes Auto (Unsp spec) [#/Vol]Ordered By: Nate Gray on 11-28-2024 Lymphocytes (Bld) [#/Vol] 0.86 10*3/uL 0.83-4.51 [facility] Lymphocytes/100 WBC Auto (Un sp spec)Ordered By: Nate Gray on 11-28-2024 Lymphocytes/100 WBC (Bld) 17.0 % Low 19-41 [facility] MCV (mean corpuscular volume ) determinationOrdered By: Nate Gray on 11-28-2024 MCV (RBC) [Entitic vol] 92.8 fL 80-94 [facility] Macrocytes Ql (Bld)Ordered B y: Nate Gray on 11-28-2024 Macrocytosis RARE [facility] Macrocytes detectionOrdered By: Nate Gray on 11-28-2024 Macrocytes Ql (Bld) RARE [facility] Manual differential comment Juvenal (Bld) [Interp]Ordered By: Nate Gray on 11-28-2024 Differential Comment SEE COMMENT [facility] Comment on above: THROMBOCYTOPENIA NOT ED Mean corpuscular hemoglobin (MCH) determinationOrdered By: Nate Gray on 11-28-2024 MCH (RBC) [Entitic mass] 29.9 pg 27.0-32.0 [facility] Mean corpuscular hemoglobin concentration (MCHC) determinationOrdered By: Nate Gray on 11-28-2024 MCHC (RBC) [Mass/Vol] 32.2 g/dL 32-36 [facility] Mean platelet volume determi nationOrdered By: Nate Gray on 11-28-2024 Platelet mean volume (Bld) [Entitic vol] 10.4 fL 6.2-12.0 [facility] Microscopic analysis of urin e for red blood cells (RBC)Ordered By: Nate Gray on 11-28-2024 Microscopic analysis of urine for red blood cells (RBC) 0-5 SEEN /hpf 0-5 [facility] Urine RBC 0-5 SEEN /hpf 0-5 [facility] Monocyte percentageOrdered B y: Nate Gray on 11-28-2024 Monocytes/100 WBC (Bld) 9.1 % 0-10 [facility] Mucus LM Ql (Urine sed)Order ed By: Nate Gray on 11-28-2024 Mucus Ql (Urine sed) 0 SEEN /hpf [facility] Neutrophil percentageOrdered By: Nate Gray on 11-28-2024 Neutrophils/100 WBC (Bld) 71.3 % High 47-70 [facility] Nitrite Test strip Ql (U)Ord ered By: Nate Gray on 11-28-2024 Nitrite Ql (U) Negative Negative [facility] Nucleated red blood cell per centageOrdered By: Nate Gray on 11-28-2024 Nucleated RBC/100 WBC (Bld) [Ratio] 0 % 0-5 [facility] Platelet countOrdered By: Emory Gray on 11-28-2024 Platelets (Bld) [#/Vol] 93 10*3/uL Low 150-450 [facility] Platelet estimateOrdered By: Nate Gray on 11-28-2024 Platelets LM Ql (Bld) MOD DEC ADEQ [facility] Platelets LM Ql (Bld)Ordered By: Nate Gray on 11-28-2024 Platelet Estimate MOD DEC ADEQ [facility] Potassium (Unsp spec) [Mass/ Vol]Ordered By: Nate Gray on 11-28-2024 Potassium [Moles/Vol] 4.0 mmol/L 3.3-5.1 [facility] Potassium measurement (mass/ volume)Ordered By: Nate Gray on 11-28-2024 Potassium (Unsp spec) [Mass/Vol] 4.0 mmol/L 3.3-5.1 [facility] Protein Test strip Ql (U)Ord ered By: Nate Gray on 11-28-2024 Protein Ql (U) 15 mg/dl High Negative [facility] RBC Auto (Bld) [#/Vol]Ordere d By: Nate Gray on 11-28-2024 RBC (Bld) [#/Vol] 4.15 10*6/uL Low 4.6-6.2 [facility] RBC morphology finding Nom ( Bld)Ordered By: Nate Gray on 11-28-2024 Red Blood Cell Morphology N CHROM NORMAL NORM C&C [facility] STAPHYLOCOCCUS AUREUS AND MR SA SCREEN, PCR, NASALon 11-28-2024 S. aureus and MRSA panel ELIZABETH+probe (Nose) Not detected Normal Not Detected [facility] Comment on above: Order Comment: Speci men Type: SWABOrdering Facility: [facility] Address: [address] [place] [address] Performed By: #### S APCR ####[facility] LABCLIA [id number] [place] [address] [place] Serum creatinine measurement (mass/volume)Ordered By: Nate Gray on 11-28-2024 Creatinine [Mass/Vol] 1.43 mg/dL High 0.70-1.20 [facility] Serum globulin measurementOr dered By: Nate Gray on 11-28-2024 Globulin (S) [Mass/Vol] 3.2 g/dL 2.2-4.2 [facility] Serum glucose measurement (m ass/volume)Ordered By: Nate Gray on 11-28-2024 Glucose [Mass/Vol] 140 mg/dL High 70-99 [facility] Serum or plasma alanine delgado otransferase (ALT) measurementOrdered By: Nate Gray on 11-28-2024 ALT [Catalytic activity/Vol] 24 U/L <47 [facility] Serum or plasma albumin jossie urement (mass/volume)Ordered By: Nate Gray on 11-28-2024 Albumin [Mass/Vol] 4.0 g/dL 3.4-4.8 [facility] Serum or plasma albumin/glob ulin mass ratioOrdered By: Nate Gray on 11-28-2024 Albumin/Globulin [Mass ratio] 1.3 {ratio} 0.9-2.4 [facility] Serum or plasma alkaline silas sphatase measurementOrdered By: Nate Gray on 11-28-2024 ALP [Catalytic activity/Vol] 66 U/L 40-129 [facility] Serum or plasma calcium jossie urement (mass/volume)Ordered By: Nate Gray on 11-28-2024 Calcium [Mass/Vol] 9.4 mg/dL 7.6-11.0 [facility] Serum or plasma urea nitroge n measurement (mass/volume)Ordered By: Nate Gray on 11-28-2024 Urea nitrogen [Mass/Vol] 39 mg/dL High 4-19 [facility] Sodium levelOrdered By: Nate Gray on 11-28-2024 Sodium [Moles/Vol] 137 mmol/L 133-145 [facility] Squamous epithelial cells de tection in urine sediment by light microscopyOrdered By: Nate Gray on 11-28-2024 Epithelial cells.squamous LM Ql (Urine sed) 0-5 SEEN /hpf 0-5 [facility] T4 Free SerPl-mCncon 025 Free T4 [Mass/Vol] 1.2 ng/dL Normal 0.9-1.7 [facility] Comment on above: Order Comment: Speci men Type: BLOOD SPECIMENOrdering Facility: [facility] Address: [address] [place] [address] Performed By: #### 3 024-7, 75270-6, HSTNT, 3016-3 ####[facility] LABCLIA [id number] [address] OF [facility] TSH SerPl-aCncon 11-28-2024 TSH Qn 9.100 m[IU]/L High 0.270-4.200 [facility] Comment on above: Order Comment: Speci men Type: BLOOD SPECIMENOrdering Facility: [facility] Address: [address] [place] [address] Performed By: #### 3 024-7, 53422-4, HSTNT, 3016-3 ####[facility] LABCLIA [id number] [address] TYPE + SCREENon 11-28-2024 ABO O Normal [facility] Comment on above: Order Comment: Speci men Type: BLOOD SPECIMENOrdering Facility: [facility] Address: [address] [place] [address] Performed By: #### T SCR ####[facility] BLOOD BANKCLIA [id number] [address] [place] Rh Nom (Bld) Negative Normal [facility] Comment on above: Order Comment: Speci men Type: BLOOD SPECIMENOrdering Facility: [facility] Address: [address] [place] [address] Performed By: #### T SCR ####[facility] BLOOD BANKIA [id number] [address] TYPE AND SCREEN EXPIRATION 12/01/2024 23:59 Normal [facility] Comment on above: Order Comment: Speci men Type: BLOOD SPECIMENOrdering Facility: [facility] Address: [address] [place] [address] Performed By: #### T SCR ####[facility] BLOOD BANKCLIA [id number] [place] [address] [place] Total proteinOrdered By: Troy Gray on 11-28-2024 Protein [Mass/Vol] 7.2 g/dL 5.9-8.4 [facility] Type AND Screenon 11-28-2024 ABO and Rh group Nom (Bld) Blood group O Rh(D) negative Normal [facility] Comment on above: Order Comment: A Performed By: #### L 501.2450, L100.0100, BTS, L500.4050 #### [facility] Laboratory [address] [place], [address] Urinalysis, Completeon 11-28 EPI,SQUAMOUS 0-5 SEEN Normal 0-5 [facility] Comment on above: Order Comment: CLEAN CATCH Performed By: #### L 400.0001 ####[facility] [address] [place], [address] RBC 0-5 SEEN Normal 0-5 [facility] Comment on above: Order Comment: CLEAN CATCH Performed By: #### L 400.0001 ####[facility] [address] [place], [address] WBC 0-5 SEEN Normal 0-5 [facility] Comment on above: Order Comment: CLEAN CATCH Performed By: #### L 400.0001 ####[facility] [id number] [place], [address] BACTERIA 0 SEEN Normal None Seen [facility] Comment on above: Order Comment: CLEAN CATCH Performed By: #### L 400.0001 ####[facility] [address] [place], [address] Mucus Ql (Urine sed) 0 SEEN Normal [facility] Comment on above: Order Comment: CLEAN CATCH Performed By: #### L 400.0001 ####[facility] [address] [place], [address] Urine blood detectionOrdered By: Nate Gray on 11-28-2024 Urine Occult Blood Negative Negative [facility] Urine clarityOrdered By: Troy Gray on 11-28-2024 Clarity (U) Sl. Cloudy Clear [facility] Urine color determinationOrd ered By: Nate Gray on 11-28-2024 Color (U) Yellow Yellow [facility] Urine glucose detectionOrder ed By: Nate Gray on 11-28-2024 Glucose Ql (U) Normal mg/dl Normal [facility] Urine leukocyte esterase det ection by dipstickOrdered By: Nate Gray on 11-28-2024 Leukocyte esterase Test strip Ql (U) Negative Negative [facility] Urine pHOrdered By: Nate vasques on 11-28-2024 pH (U) 6.5 [pH] 5.0 - 8.0 [facility] Urine sediment bacteria coun t by microscopy (number/high power field)Ordered By: Nate Gray on 11-28-2024 Bacteria LM.HPF (Urine sed) [#/Area] 0 /[HPF] None Seen [facility] Urine specific gravity measu rementOrdered By: Nate Gray on 11-28-2024 Specific gravity (U) [Rel density] 1.010 1.002-1.030 [facility] Urine urobilinogen measureme ntOrdered By: Nate Gray on 11-28-2024 Urobilinogen Ql (U) Normal mg/dl Normal [facility] Urobilinogen Ql (U)Ordered B y: Nate Gray on 11-28-2024 Urine Urobilinogen Normal mg/dl Normal [facility] White blood cell (WBC) count Ordered By: Nate Gray on 11-28-2024 WBC (Bld) [#/Vol] 5.1 10*3/uL 4.4-11.0 [facility] White blood cell countOrdere d By: Nate Gray on 11-28-2024 Urine WBC 0-5 SEEN /hpf 0-5 [facility] White blood cell count 0-5 SEEN /hpf 0-5 [facility] XR CHEST 1V FRONTAL PORTon 0 11-28-2024 XR CHEST 1V FRONTAL PORT Normal [facility] Bacteria Ur Culton Bacteria identified Cx Nom (U) ORGANISM ID: 1 <10,000 CFU/ml Normal urogenital heather Normal [facility] Comment on above: Performed By: #### 6 30-4 ####[facility] LABCLIA [id number] [place] [address] [place] Basic metabolic 2000 panelOr dered By: Lucille Glover on 11-27-2024 Anion gap [Moles/Vol] 10 mmol/L 8 - 15 mmol/L [facility] Calcium [Mass/Vol] 9.2 mg/dL 8.5 - 10. 2 mg/dL [facility] Chloride [Moles/Vol] 103 mmol/L 98 - 10 7 mmol/L [facility] CO2 [Moles/Vol] 26 mmol/L 22 - 30 mmol/L [facility] Creatinine [Mass/Vol] 1.26 mg/dL High 0.73 - 1.22 mg/dL [facility] GFR/1.73 sq M.predicted among non-blacks MDRD (S/P/Bld) [Vol rate/Area] 56 mL/min/{1.73_m2} Low - PINF [facility] Comment on above: Estimated Glomerular Filtration Rate (eGFR) is calculated using the 2020 CKD-EPI creatinine equation. This equation utilizes serum creatinine, sex, and age as parameters. The creatinine assay has traceable calibration to isotope dilution-mass spectrometry. Refer to KDIGO guidelines for clinical interpretation. In patients with unstable renal function, e.g. those with acute kidney injury, the eGFR may not accurately reflect actual GFR. Glucose [Mass/Vol] 104 mg/dL High 74 - 99 mg/dL [facility] Comment on above: The [place] Diabete s Association (ADA) provides guidance for cutoff values for fasting glucose and random glucose. The ADA defines fasting as no caloric intake for at least 8 hours. Fasting plasma glucose results between 100 to 125 mg/dL indicate increased risk for diabetes (prediabetes). Fasting plasma glucose results greater than or equal to 126 mg/dL meet the criteria for diagnosis of diabetes. In the absence of unequivocal hyperglycemia, results should be confirmed by repeat testing. In a patient with classic symptoms of hyperglycemia or hyperglycemic crisis, random plasma glucose results greater than or equal to 200 mg/dL meet the criteria for diagnosis of diabetes. Reference: Standards of Medical Care in Diabetes 2016, [place] [employer]. Diabetes Care. 2016.39(Suppl 1). Interpretation and review of laboratory results Abnormal [facility] Potassium [Moles/Vol] 4.1 mmol/L 3.7 - 5.1 mmol/L [facility] Sodium [Moles/Vol] 139 mmol/L 136 - 144 mmol/L [facility] Urea nitrogen [Mass/Vol] 35 mg/dL High 9 - 24 mg/dL [facility] Basic metabolic 2000 panelon 11-27-2024 Anion gap [Moles/Vol] 10 mmol/L Normal 8-15 [facility] Comment on above: Order Comment: Speci men Type: BLOOD SPECIMENOrdering Facility: [facility] Address: [address] [place] [address] Performed By: #### 2 4321-2 ####[facility] MILLTOWNCLIA [id number] [place] [address] [place] Calcium [Mass/Vol] 9.2 mg/dL Normal 8.5-10.2 [facility] Comment on above: Order Comment: Speci men Type: BLOOD SPECIMENOrdering Facility: [facility] Address: [address] [place] [address] Performed By: #### 2 4321-2 ####[facility] MILLTOWNCLIA [id number] [place] [address] [place] Chloride [Moles/Vol] 103 mmol/L Normal 98-107 [facility] Comment on above: Order Comment: Speci men Type: BLOOD SPECIMENOrdering Facility: [facility] Address: [address] [place] [address] Performed By: #### 2 4321-2 ####[facility] MILLTOWNCLIA [id number] [place] [address] [place] CO2 [Moles/Vol] 26 mmol/L Normal 22-30 [facility] Comment on above: Order Comment: Speci men Type: BLOOD SPECIMENOrdering Facility: [facility] Address: [address] [place] [address] Performed By: #### 2 4321-2 ####[facility] MILLTOWNCLIA [id number] [place] [address] [place] Creatinine [Mass/Vol] 1.26 mg/dL High 0.73-1.22 [facility] Comment on above: Order Comment: Ian lassiter Type: BLOOD SPECIMENOrdering Facility: [facility] Address: [address] [place] [address] Performed By: #### 2 4321-2 ####[facility] [id number] [place] [address] [place] Creatinine and Glomerular filtration rate.predicted panel (S/P/Bld) 56 mL/min/1.73m??? Low >=60 [facility] Comment on above: Order Comment: Ian lassiter Type: BLOOD SPECIMENOrdering Facility: [facility] Address: [address] [place] [address] Result Comment: [place]eara mated Glomerular Filtration Rate (eGFR) is calculated using the 2020 CKD-EPI creatinine equation. This equation utilizes serum creatinine, sex, and age as parameters. The creatinine assay has traceable calibration to isotope dilution-mass spectrometry. Refer to KDIGO guidelines for clinical interpretation. In patients with unstable renal function, e.g. those with acute kidney injury, the eGFR may not accurately reflect actual GFR. Performed By: #### 2 4321-2 ####[facility] [id number] [place] [address] [place] Glucose [Mass/Vol] 104 mg/dL High 74-99 [facility] Comment on above: Order Comment: Ian lassiter Type: BLOOD SPECIMENOrdering Facility: [facility] Address: [address] [place] [address] Result Comment: The [place] Diabetes Association (ADA) provides guidance for cutoff values for fasting glucose and random glucose. The ADA defines fasting as no caloric intake for at least 8 hours. Fasting plasma glucose results between 100 to 125 mg/dL indicate increased risk for diabetes (prediabetes).Fasting plasma glucose results greater than or equal to 126 mg/dL meet the criteria for diagnosis of diabetes. In the absence of unequivocal hyperglycemia, results should be confirmed by repeat testing. In a patient with classic symptoms of hyperglycemia or hyperglycemic crisis, random plasma glucose results greater than or equal to 200 mg/dL meet the criteria for diagnosis of diabetes.Reference: Standards of Medical Care in Diabetes 2016, [place] [employer] Association. Diabetes Care. 2016.39(Suppl 1). Performed By: #### 2 4321-2 ####[facility] SIERRAMARTINCHARLYLIA [id number] [place] [address] [place] Potassium [Moles/Vol] 4.1 mmol/L Normal 3.7-5.1 [facility] Comment on above: Order Comment: Speci men Type: BLOOD SPECIMENOrdering Facility: [facility] Address: [address] [place] [address] Performed By: #### 2 4321-2 ####[facility] [id number] [place] [address] [place] Sodium [Moles/Vol] 139 mmol/L Normal 136-144 [facility] Comment on above: Order Comment: Speci men Type: BLOOD SPECIMENOrdering Facility: [facility] Address: [address] [place] [address] Performed By: #### 2 4321-2 ####[facility] [id number] [place] [address] [place] Urea nitrogen [Mass/Vol] 35 mg/dL High 9-24 [facility] Comment on above: Order Comment: Speci men Type: BLOOD SPECIMENOrdering Facility: [facility] Address: [address] [place] [address] Performed By: #### 2 4321-2 ####[facility] [id number] [place] [address] [place] CBC panel Auto (Bld)on 11-27 Erythrocyte distribution width (RBC) [Ratio] 15 % 11.5 - 15.0 % [facility] Hematocrit (Bld) [Volume fraction] 37.7 % Low 39.0 - 51.0 % [facility] Hemoglobin (Bld) [Mass/Vol] 12.2 g/dL Low 13.0 - 17.0 g/dL [facility] Interpretation and review of laboratory results Abnormal [facility] MCH (RBC) [Entitic mass] 30.2 pg 26.0 - 34.0 pg [facility] MCHC (RBC) [Mass/Vol] 32.4 g/dL 30.5 - 36.0 g/dL [facility] MCV (RBC) [Entitic vol] 93.3 fL 80.0 - 100.0 fL [facility] Nucleated RBC (Bld) [#/Vol] NINF [facility] Platelet mean volume (Bld) [Entitic vol] 10.7 fL 9.0 - 12.7 fL [facility] Platelets (Bld) [#/Vol] 91 10*3/uL Low [facility] Comment on above: No clot detected. RBC (Bld) [#/Vol] 4.04 10*6/uL Low 4.20 - 6.0 0 m/uL [facility] WBC (Bld) [#/Vol] 5.57 10*3/uL [facility] Erythrocyte distribution width (RBC) [Ratio] 15.0 % Normal 11.5-15.0 [facility] Comment on above: Order Comment: Speci men Type: BLOOD SPECIMENOrdering Facility: [facility] Address: [address] [place] [address] Performed By: #### 5 8410-2 ####[facility] [id number] [place] [address] [place] Hematocrit (Bld) [Volume fraction] 37.7 % Low 39.0-51.0 [facility] Comment on above: Order Comment: Speci men Type: BLOOD SPECIMENOrdering Facility: [facility] Address: [address] [place], [place] [address] Performed By: #### 5 8410-2 ####[facility] [id number] [place] [address] [place] Hemoglobin (Bld) [Mass/Vol] 12.2 g/dL Low 13.0-17.0 [facility] Comment on above: Order Comment: Speci men Type: BLOOD SPECIMENOrdering Facility: [facility] Address: [address] [place] [address] Performed By: #### 5 8410-2 ####[facility] CAROL ANNA [id number] [address] [place] [facility] MCH (RBC) [Entitic mass] 30.2 pg Normal 26.0-34.0 [facility] Comment on above: Order Comment: Speci men Type: BLOOD SPECIMENOrdering Facility: [facility] Address: [address] [place] [address] Performed By: #### 5 8410-2 ####[facility]ITALCHARLYNila [id number] [place] [address] [place] MCHC (RBC) [Mass/Vol] 32.4 g/dL Normal 30.5-36.0 [facility] Comment on above: Order Comment: Speci men Type: BLOOD SPECIMENOrdering Facility: [facility] Address: [address] [place] [address] Performed By: #### 5 8410-2 ####[facility] [id number] [place] [address] [place] MCV (RBC) [Entitic vol] 93.3 fL Normal 80.0-100.0 [facility] Comment on above: Order Comment: Speci men Type: BLOOD SPECIMENOrdering Facility: [facility] Address: [address] [place] [address] Performed By: #### 5 8410-2 ####[facility]ITALCHARLYLIA [id number] [place] [address] [place] Nucleated RBC (Bld) [#/Vol] 10*3/uL Normal <0.01 [facility] Comment on above: Order Comment: Speci men Type: BLOOD SPECIMENOrdering Facility: [facility] Address: [address] [place] [address] Performed By: #### 5 8410-2 ####[facility] HOSPITALLIA [id number] [place] [address] [place] Platelet mean volume (Bld) [Entitic vol] 10.7 fL Normal 9.0-12.7 [facility] Comment on above: Order Comment: Speci men Type: BLOOD SPECIMENOrdering Facility: [facility] Address: [address] [place] [address] Performed By: #### 5 8410-2 ####[facility]ITALNCLIA [id number] [place] [address] [place] Platelets (Bld) [#/Vol] 91 10*3/uL Low 150-400 [facility] Comment on above: Order Comment: Speci men Type: BLOOD SPECIMENOrdering Facility: [facility] Address: [address] [place] [address] Result Comment: No c lot detected. Performed By: #### 5 8410-2 ####[facility]ITALNCLIA [id number] [place] [address] [place] RBC (Bld) [#/Vol] 4.04 10*6/uL Low 4.20-6.00 [facility] Comment on above: Order Comment: Speci men Type: BLOOD SPECIMENOrdering Facility: [facility] Address: [address] [place] [address] Performed By: #### 5 8410-2 ####[facility]ITALNCLIA [id number] [place] [address] [place] WBC (Bld) [#/Vol] 5.57 10*3/uL Normal 3.70-11.00 [facility] Comment on above: Order Comment: Speci men Type: BLOOD SPECIMENOrdering Facility: [facility] Address: [address] [place] [address] Performed By: #### 5 8410-2 ####[facility]ITALNCLIA [id number] [place] [address] [place] CNOVon 11-27-2024 CNOV Normal [facility] Lipase SerPl-cCncon 11-28-19 25 Lipase [Catalytic activity/Vol] 28 U/L Normal 16-61 [facility] Comment on above: Order Comment: Speci men Type: BLOOD SPECIMENOrdering Facility: [facility] Address: [address] [place] [address] Performed By: #### 3 040-3, 37877-9, 05086-0 ####[facility] LABCLIA [id number] [place] [address] [place] Lipid 1996 panelon Cholesterol [Mass/Vol] 169 mg/dL Normal <200 [facility] Comment on above: Order Comment: Speci men Type: BLOOD SPECIMENOrdering Facility: [facility] Address: [address] [place] [address] Result Comment: <200 mg/dL, Desirable 200-239 mg/dL, Borderline high>239 mg/dL, High Performed By: #### 3 040-3, 42604-1, 19533-8 ####[facility] LABCLIA [id number] [address] [place] Cholesterol in HDL [Mass/Vol] 50 mg/dL Normal >39 [facility] Comment on above: Order Comment: Speci men Type: BLOOD SPECIMENOrdering Facility: [facility] Address: [address] [place] [address] Result Comment: 40-5 9 mg/dL, Acceptable>59 mg/dL, High: Negative risk factor for coronary heart disease<40 mg/dL, Low: Positive risk factor for coronary heart disease Performed By: #### 3 040-3, 52460-9, 99156-1 ####[facility] LABCLIA [id number] [address], [facility] [place] Cholesterol in LDL [Mass/Vol] 100 mg/dL High <100 [facility] Comment on above: Order Comment: Speci men Type: BLOOD SPECIMENOrdering Facility: [facility] Address: [address] [place] [address] Result Comment: <100 mg/dL, Optimal 100-129 mg/dL, Near optimal/above optimal 130-159 mg/dL, Borderline high 160-189 mg/dL, High>189 mg/dL, Very highSecondary prevention optimal LDL Cholesterol levels are recommended to be < 70 mg/dL Performed By: #### 3 040-3, 88504-6, 37159-4 ####[facility] LABCLIA [id number] [address] [address] [place] Cholesterol in LDL/Cholesterol in HDL [Mass ratio] 2.00 {ratio} Normal <2.54 [facility] Comment on above: Order Comment: Ian men Type: BLOOD SPECIMENOrdering Facility: [facility] Address: [address] [place] [address] Result Comment: Refe edgarce:1. National Cholesterol Education Program ATP III Guideline At-A-Glance Quick Desk Reference: National Heart, Lung, and Blood [place]. National Institutes of Health. 2001: NIH Publication No. 01-3305.2. An International Atherosclerosis Society position paper: global recommendations for the management of dyslipidemia: executive summary, Atherosclerosis. 2014: 232(2):410-413. Performed By: #### 3 040-3, 61936-0, 81502-2 ####[facility] LABCLIA [id number] [address] [address] [place] Cholesterol in VLDL [Mass/Vol] 19 mg/dL Normal <30 [facility] Comment on above: Order Comment: Nahuni maikol Type: BLOOD SPECIMENOrdering Facility: [facility] Address: [address] [place] [address] Performed By: #### 3 040-3, 73072-1, 65618-1 ####[facility] LABCLIA [id number] [address] [address] [place] Cholesterol non HDL [Mass/Vol] 119 mg/dL Normal <130 [facility] Comment on above: Order Comment: Speci men Type: BLOOD SPECIMENOrdering Facility: [facility] Address: [address] [place] [address] Result Comment: <130 mg/dL, Optimal 130-159 mg/dL, Near optimal/above optimal 160-189 mg/dL, Borderline high 190-219 mg/dL, High>219 mg/dL, Very highSecondary prevention optimal non HDL Cholesterol levels are recommended to be <100 mg/dL Performed By: #### 3 040-3, 73388-0, 92481-8 ####[facility] LABCLIA [id number] [place] [address] [place] Cholesterol.total/Cho lesterol in HDL [Mass ratio] 3.38 {ratio} Normal <5.10 [facility] Comment on above: Order Comment: Speci men Type: BLOOD SPECIMENOrdering Facility: [facility] Address: [address] [place] [address] Performed By: #### 3 040-3, 53917-8, 86608-0 ####[facility] LABCLIA [id number] [place] [id number] [place] FASTING TIME Normal [facility] Comment on above: Order Comment: Speci men Type: BLOOD SPECIMENOrdering Facility: [facility] Address: [address] [place] [address] Result Comment: Unkn own Performed By: #### 3 040-3, 88301-5, 53478-0 ####[facility] LABCLIA [id number] [address] [address] [place] Triglyceride [Mass/Vol] 97 mg/dL Normal <150 [facility] Comment on above: Order Comment: Speci men Type: BLOOD SPECIMENOrdering Facility: [facility] Address: [address] [place] [address] Result Comment: <150 mg/dL, Normal 150-199 mg/dL, Borderline high 200-499 mg/dL, High>499 mg/dL, Very high Performed By: #### 3 040-3, 52839-9, 09937-6 ####[facility] LABIA [id number] [address] [place] NT-proBNP SerPl-mCncon 11-27 Natriuretic peptide.B prohormone N-Terminal [Mass/Vol] 1180 pg/mL High <450 [facility] Comment on above: Order Comment: Speci men Type: BLOOD SPECIMENOrdering Facility: [facility] Address: [address] [place] [address] Performed By: #### 3 040-3, 80362-2, 53782-4 ####[facility] LABIA [id number] [address] [place] TSH SerPl-aCncon 11-27-2024 TSH Qn 8.680 m[IU]/L High 0.270-4.200 [facility] Comment on above: Order Comment: Speci men Type: BLOOD SPECIMENOrdering Facility: [facility] Address: [address] [place] [address] Performed By: #### 3 016-3 ####[facility] [id number] [place] [address] [place] UA DIP, URINE (POC)on 2024 BILIRUBIN UA (POCT) Negative Negative [facility] CLARITY UA (POCT) Clear [facility] COLOR UA (POCT) Yellow [facility] GLUCOSE UA (POCT) Negative Negative mg/dL [facility] Hemoglobin Ql (U) Negative Negative [facility] Interpretation and review of laboratory results Abnormal [facility] KETONE UA (POCT) Negative Negative mg/dL [facility] LEUKOCYTES UA (POCT) Negative Negative [facility] NITRITE UA (POCT) Negative Negative [facility] PH UA (POCT) 6 4.5 - 8.0 [facility] Protein Ql (U) Trace Abnormal Negative mg/dL [facility] SPECIFIC GRAVITY UA (POCT) 1.02 1.005 - 1.030 [facility] UROBILINOGEN UA (POCT) 0.2 Normal E.U./dL [facility] Location:[facility], [address], [place], [address] [facility] POINT OF CARE [facility] CNTHERAPYon 11-24-2024 CNTHERAPY Normal [facility] [id number] 11-21-2024 [id number] Normal [facility] CNTHERAPYon 11-21-2024 CNTHERAPY Normal [facility] THERAPY NTon 11-21-2024 THERAPY NT Normal [facility] CNOVon 11-09-2024 CNOV Normal [facility] CNOVon 11-07-2024 CNOV Normal [facility] Surgery Visit Reporton 09-15 Surgery Visit Report [facility] [address] [place] [address] OFFICE VISIT Date of Service: 09/15/24 MR#: [id number] Acct: [id number] Name: LEANA CAMEJO Rep #: [id number] : 1940 Provider: Dr. Lara lemons MD Age/Sex: 84/M Location: [facility] Status: Signed Intake Vital Signs 08/31/24 06:39 Height 5 ft 8 in Intake Visit Reasons: SPIGELIAN HERNIA DOS 08/31 Chief Complaint: spigelian hernia Is patient in pain?: No Allergies lisinopril Allergy (Intermediate, Verified 09/15/24 13:16) Rash atorvastatin calcium (From Lipitor) Allergy (Verified 09/15/24 13:16) Other clonidine Allergy (Verified 09/15/24 13:16) Unknown rosuvastatin calcium (From Crestor) Allergy (Verified 09/15/24 13:16) Other Occycws-WSE-MfS Reductase Inhibitor (Hquvfhp-Ahf-Dfu Reductase Inhibitor) Allergy (Verified 09/15/24 13:16) Other Have you fallen in the past year?: No Subjective Details: 84-year-old male presents status post left spigelian hernia repair with mesh. Patient is doing well denies any pain at that area or issues with the incision. Patient is interested in possibly following with vascular surgery in [place] not having to go all the way to [facility]. Objective Details: Abdomen: Soft, nondistended, nontender, incision healing well clean dry and intact no signs of infection. Coding Level of Care Code Global Post Op Diagnoses S/P spigelian hernia repair, follow-up exam Z09 [facility] Medical History (Updated 09/15/24 @ 13:16 by Carey Sloan LPN) Spigelian hernia Wears hearing aid Wears glasses History of steroid therapy Arthritis History of renal disease TIA (transient ischemic attack) Ataxia History of echocardiogram Easy bruising History of IBS Former smoker History of stress test Cardiology follow-up encounter History of irregular heartbeat Preop cardiovascular exam Stenosis of right internal carotid artery Abdominal aortic 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 Essential hypertension Lumbar disc disease 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 Hyperlipidemia Diverticulosis Pre-operative cardiovascular examination Anemia 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, NYHA class 2 RSV (respiratory syncytial virus pneumonia) Shortness of breath Cough productive of purulent sputum Surgical History (Updated 09/15/24 @ 13:16 by Carey Sloan LPN) S/P spigelian hernia repair, follow-up exam S/P AAA repair History of right-sided carotid endarterectomy Hx of cataract surgery Hx of appendectomy History of tonsillectomy History of back surgery History of colonoscopy History of blepharoplasty History of inguinal hernia repair History of umbilical hernia repair 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 Family History Father Lung cancer Liver cancer Mother Oral cancer Social History household members: spouse Smoking Status: Former smoker second hand exposure: No alcohol intake: never substance use type: does not use caffeine: Yes Type: coffee Number of servings: 2 Assessment and Plan (No Qualifiers) Assessment and Plan (1) S/P spigelian hernia repair, follow-up exam: Status: Acute Plan Patient is doing well tolerating diet having bowel function. Incisions healing well. Follow-up as needed. Also refer patient to vascular surgery and [place] Dr. 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 Perez previously. Lara Fonseca M.D. Pager: [phone] [facility] [address] [place] [address], [facility], [address] [place] [address] Office: [phone] 09/17/24 1417 Date Lara Arrington Signature: Date (if applicable) CC: Dr. Dallas Reed MD Normal [facility] CNPNon 09-08-2024 CNPN Normal [facility] CNOVon 09-07-2024 CNOV Normal [facility] T3 SerPl-mCncon 09-07-2024 T3 [Mass/Vol] 69 ng/dL Low 79-165 [facility] Comment on above: Order Comment: Speci men Type: BLOOD SPECIMENOrdering Facility: [facility] Address: [address] [place] [address] Performed By: #### 3 024-7, 3053-6 ####[facility] [id number] [place] [address] [place] T4 Free SerPl-mCncon 024 Free T4 [Mass/Vol] 1.3 ng/dL Normal 0.9-1.7 [facility] Comment on above: Order Comment: Speci men Type: BLOOD SPECIMENOrdering Facility: [facility] Address: [address] [place] [address] Performed By: #### 3 024-7, 3053-6 ####[facility] [id number] [place] [address] [place] Discharge Instructionon 08-20 Discharge Instruction [facility] Medical Records Department [address] [place] [address] Instructions for Home/Discharge Instructions 08/31/24 0825 MR#: [id number] Acct: [id number] Name: LEANA CAMEJO Rep #: [id number] : 1940 84 From: Lara Fonseca MD PCP: Dr. Dallas Reed MD Status:[facility] Discharge Instructions Diet Discharge Diet: Light diet - advance as tolerated Activity Discharge Activity: May Not Drive (while taking narcotic pain medications.) May shower in (days): 1 Lifting Restrictions: no lifting >20 lbs x 2 wks, no strenuous exercise for 4 wks Dressing / Incision Call your doctor if your incision/area has: Continuous Slow Oozing, Sudden Increased Bleeding, Increased Pain/ Swelling, Increased Redness, Foul Smelling Discharge and Swelling at the incision site Call your doctor if you observe: Fever of 101 or Higher Remove Dressing in: 2 days Cleanse incision/area with: Soap Water Additional Dressing/Incision Instructions:: Steri-Strips will fall off in 7 to 10 days, if they do not fall off okay to remove after 10 days. Follow Up Care Please Follow Up With: Lara Fonseca MD When: Call the office for a follow-up appointment 2 weeks; after 5 PM and on the weekends call [phone] with any concerns. Test Results: Test results from this visit will be discussed in further detail at your follow-up appointment, if applicable. Discharge Plan Admission Attending Provider: Lara Fonseca Primary Care Provider: Dallas Reed Instructions Print Language: Ethiopian Discharge Orders/Prescriptions Prescriptions: New tramadol 50 mg tablet 50 mg PO Q6H PRN (Reason: pain) 3 Days Qty: 5 0RF Continued cholecalciferol (vitamin D3) 2,000 unit capsule 2,000 unit PO DAILY multivitamin Tablet 1 tab PO DAILY losartan 100 mg tablet 100 mg PO DAILY ascorbic acid (vitamin C) 500 mg capsule 2,000 mg PO DAILY carvedilol 12.5 mg tablet 12.5 mg PO BID Qty: 180 0RF magnesium oxide 400 mg (241.3 mg magnesium) tablet 400 mg PO DAILY doxazosin 8 mg tablet 8 mg PO QHS hydralazine 100 mg tablet 100 mg PO TID furosemide 20 mg tablet 20 mg PO DAILY ezetimibe 10 mg tablet 10 mg PO DAILY Nexletol 180 mg tablet 180 mg PO DAILY Held aspirin 81 mg Tablet,Chewable 81 mg PO BREAKFAST 30 Days Qty: 30 3RF Hold Instructions: Resume on 09/01/24. Rx Instructions: Discontinue if platelet count drops less than 50,000 or hemoglobin less than 8 g% Referrals / Follow Up: Dallas Reed MD [Primary Care Provider] - Disposition Disposition (needs filled in before D/C Order can be placed): Home, Self Care 08/31/24826 Lara Fonseca MD CC: Dr. Dallas Reed MD Signed [facility] MR/POSTOP.ANE 08-31-2024 MR/POSTOP.[facility] Medical Records Department [address] [place] [address] Anesthesia Postop Eval I 08/31/24843 MR#: [id number] Acct: [id number] Name: LEANA CAMEJO Rep #: [id number] : 1940 84 From: Melina Paz PCP: Dr. Dallas Reed MD Status:[facility] Y Race: C Location: [place] [address] Anesthesia: Postop Eval I Current Vital Signs Temperature: 98.8 F Pulse Rate: 73 Blood Pressure: 161/80 Respiratory Rate: 18 Pulse Ox: 96 Assessment Airway patent: Yes Spontaneous unlabored respirations: Yes nausea: No Vomiting: No Anesthesia Complication: No Fluid Hydration Crystalloid volume administer (ml): 1,000 Total IV fluid infused: 1,000 Progress Note Anesthesia document: Postop Eval 1 completed: Yes 08/31/24844 Date Melina Arrington Signature: Date CC: Signed [facility] MR/GKBDTNHM9ug 08-31-2024 MR/POSTOPAN2 [facility] Medical Records Department [address] [place] [address] Anesthesia Postop Eval II 08/31/24912 MR#: [id number] Acct: [id number] Name: LEANA CAMEJO Rep #: [id number] : 1940 84 From: Man Madrid MD PCP: Dr. Dallas Reed MD Status:REG SDC Y Race: C Location: [place] [address]- Anesthesia Postop Eval I Sum Postop Eval Completion status Anesthesia document: Postop Eval 1 completed: Yes Anesthesia Postop Eval I Summary Anesthesia Postop Eval I Summary: Anesthesia Postop Eval I: Assessment Summary Airway patent Yes 08/31/24 08:44 TABLEAU ARCHITECT.CSIR Spontaneous unlabored Yes 08/31/24 08:44 TABLEAU ARCHITECT.CSIR respirations Mental status nausea No 08/31/24 08:44 TABLEAU ARCHITECT.CSIR Vomiting No 08/31/24 08:44 TABLEAU ARCHITECT.CSIR Anesthesia Postop Eval I: Fluid Summary Crystalloid volume administer 1,000 08/31/24 08:44 TABLEAU ARCHITECT.CSIR (ml) Colloids volume administered ( ml) Blood Product volume administered (ml) Total IV fluid infused 1,000 08/31/24 08:44 TABLEAU ARCHITECT.CSIR Anesthesia Postop Eval I: Summary Notes Anesthesia Complication No 08/31/24 08:44 TABLEAU ARCHITECT.CSIR Anesthesia Complication Comment: Post-operative progress note Anesthesia: Postop Eval II Evaluation Mental status: Awake Pain Level: 0 nausea: No Vomiting: No 08/31/24912 Date Man Madrid MD Cosigner Signature: Date CC: Signed Normal [facility] Operative Reporton 4 Operative Report [facility] Medical Records Department [address] [place] [address] Operative Report 08/31/24824 MR#: [id number] Acct: [id number] Name: LINDA CAMEJOBY KRYSTLE Rep #: [id number] : 1940 84 From: Lara Fonseca MD PCP: Dr. Dallas Reed MD Status:[facility] [place] [facility] Operative Report (Standard) Operative Information Date of Procedure: 08/31/24 Pre-Operative Diagnosis: Left spigelian hernia Post-Operative Diagnosis: Same Surgery/Procedure Performed: Open left spigelian hernia pair with mesh vocational coordinator: Yes Surgical Corsetier: Magalys Oneal Tasks completed by nursing home assistant administrator: Closing and Retracting Type of Anesthesia: General/Supplemental RN Documented Start/Stop Times: Operation Date: 08/31/24 07:30 Case Time Into Pre-Op 08/31/24 06:16 Out of Pre-Op 08/31/24 07:24 Anesthesia Start 08/31/24 07:26 Into Room 08/31/24 07:26 Procedure Start 08/31/24 07:39 Procedure End 08/31/24 08:35 Anesthesia End 08/31/24 08:40 Out of Room 08/31/24 08:40 Into Recovery 08/31/24 08:44 Out of Recovery 08/31/24 09:10 Into Phase II Recovery 08/31/24 09:12 Out of Phase II 08/31/24 16:19 Procedure Start Time: 07:39 Procedure Stop Time: 08:35 Select all DRAINS/GRAFTS/IMPLANTS that apply: Prosthetic device Prosthetic device details: Ventralex ST hernia patch 6.4 cm ref [id number] Lot [id number] Special Medications: Ancef 2 g IV x 1 Estimated Blood Loss: < 10 cc Specimen collected: No Description of surgery: Patient was brought into the room placed supine on the operating table. Correct patient, procedure, site, positioning, special, was verified prior to procedure. General anesthesia was induced. The abdomen was prepped draped in usual sterile fashion. A transverse incision with a 15 blade scalpel overlying the left spigelian hernia which was marked preoperatively by ultrasound. This was deepened with electrocautery. The external oblique was divided vertically to expose the spigelian hernia. The fascia around the hernia defect was cleared and the hernia defect measured 2 cm x [address] hernia patch 6.4 cm was selected. This was secured laterally at its tails with 0 Nurolon horizontal mattress suture. The hernia defect was closed with 2 ccrcyj-oh-pmatr 0 Nurolon. The wound was irrigated with saline. External oblique fascia was closed with a running 0 Nurolon suture. Hemostasis was assured. The incision was closed with subdermal sutures of 3-0 Vicryl interrupted. The skin was closed with interrupted 4-0 Monocryl sutures. Steri-Strips and OpSite were placed over the incision. Patient was extubated. Patient tolerated procedure well and was taken to the postanesthesia care unit in stable condition. Surgical Findings: Left spigelian hernia Complications Complications: No 09/01/24 0746 Cosigner Signature (if applicable): CC: Dr. Lara Fonseca MD; Dr. Dallas Reed MD [facility] CBC panel Auto (Bld)on 08-04 Erythrocyte distribution width (RBC) [Ratio] 14.7 % Normal 11.5-15.0 [facility] Comment on above: Order Comment: Speci men Type: BLOOD SPECIMENOrdering Facility: [facility] Address: [address] [place] [address] Performed By: #### 5 8410-2 ####[facility] [id number] [place] [address] [place] Hematocrit (Bld) [Volume fraction] 37.4 % Low 39.0-51.0 [facility] Comment on above: Order Comment: Speci men Type: BLOOD SPECIMENOrdering Facility: [facility] Address: [address] [place] [address] Performed By: #### 5 8410-2 ####[facility] [id number] [place] [address] [place] Hemoglobin (Bld) [Mass/Vol] 11.9 g/dL Low 13.0-17.0 [facility] Comment on above: Order Comment: Speci men Type: BLOOD SPECIMENOrdering Facility: [facility] Address: [address] [place] [address] Performed By: #### 5 8410-2 ####[facility] LABIA [id number] [place] [address] [place] MCH (RBC) [Entitic mass] 30.1 pg Normal 26.0-34.0 [facility] Comment on above: Order Comment: Speci men Type: BLOOD SPECIMENOrdering Facility: [facility] Address: [address] [place] [address] Performed By: #### 5 8410-2 ####[facility] LABIA [id number] [place] [address] [place] MCHC (RBC) [Mass/Vol] 31.8 g/dL Normal 30.5-36.0 [facility] Comment on above: Order Comment: Speci men Type: BLOOD SPECIMENOrdering Facility: [facility] Address: [address] [place] [address] Performed By: #### 5 8410-2 ####[facility] LABIA [id number] [place] [address] [place] MCV (RBC) [Entitic vol] 94.4 fL Normal 80.0-100.0 [facility] Comment on above: Order Comment: Speci men Type: BLOOD SPECIMENOrdering Facility: [facility] Address: [address] [place] [address] Performed By: #### 5 8410-2 ####[facility] LABIA [id number] [place] [address] [place] Nucleated RBC (Bld) [#/Vol] 10*3/uL Normal <0.01 [facility] Comment on above: Order Comment: Speci men Type: BLOOD SPECIMENOrdering Facility: [facility] Address: [address] [place] [address] Performed By: #### 5 8410-2 ####[facility] LABIA [id number] [place] [address] [place] Platelet mean volume (Bld) [Entitic vol] 12.3 fL Normal 9.0-12.7 [facility] Comment on above: Order Comment: Speci men Type: BLOOD SPECIMENOrdering Facility: [facility] Address: [address] [place] [address] Performed By: #### 5 8410-2 ####[facility] LABCLIA [id number] [place] [address] [place] Platelets (Bld) [#/Vol] 88 10*3/uL Low 150-400 [facility] Comment on above: Order Comment: Speci men Type: BLOOD SPECIMENOrdering Facility: [facility] Address: [address] [place] [address] Result Comment: No c lot detected. Performed By: #### 5 8410-2 ####[facility] LABCLIA [id number] [place] [address] [place] RBC (Bld) [#/Vol] 3.96 10*6/uL Low 4.20-6.00 [facility] Comment on above: Order Comment: Speci men Type: BLOOD SPECIMENOrdering Facility: [facility] Address: [address] [place] [address] Performed By: #### 5 8410-2 ####[facility] LABIA [id number] [place] [address] [place] WBC (Bld) [#/Vol] 5.07 10*3/uL Normal 3.70-11.00 [facility] Comment on above: Order Comment: Speci men Type: BLOOD SPECIMENOrdering Facility: [facility] Address: [address] [place] [address] Performed By: #### 5 8410-2 ####[facility] LABCLIA [id number] [place] [address] [place] Comprehensive metabolic 2000 panelon 08-04-2024 Albumin [Mass/Vol] 3.7 g/dL Low 3.9-4.9 [facility] Comment on above: Order Comment: Speci men Type: BLOOD SPECIMENOrdering Facility: [facility] Address: [address] [place] [address] Performed By: #### 2 4323-8, 22098-7, 6-3 ####[facility] LABCLIA [id number] [place] [address] [place] ALP [Catalytic activity/Vol] 44 U/L Normal 38-113 [facility] Comment on above: Order Comment: Speci men Type: BLOOD SPECIMENOrdering Facility: [facility] Address: [address] [place] [address] Performed By: #### 2 4323-8, 71263-3, 3015-3 ####[facility] LABCLIA [id number] [place] [address] [place] ALT [Catalytic activity/Vol] 22 U/L Normal 10-54 [facility] Comment on above: Order Comment: Speci men Type: BLOOD SPECIMENOrdering Facility: [facility] Address: [address] [place] [address] Performed By: #### 2 4323-8, 12231-6, 3 ####[facility] LABCLIA [id number] [place] [address] [place] Anion gap [Moles/Vol] 9 mmol/L Normal 8-15 [facility] Comment on above: Order Comment: Speci men Type: BLOOD SPECIMENOrdering Facility: [facility] Address: [address] [place], [place] [address] Performed By: #### 2 4323-8, 45750-6, 3015-3 ####[facility] LABCLIA [id number] [facility] [place] [id number] [place] AST [Catalytic activity/Vol] 25 U/L Normal 14-40 [facility] Comment on above: Order Comment: Speci men Type: BLOOD SPECIMENOrdering Facility: [facility] Address: [address] [place] [address] Performed By: #### 2 4323-8, 76628-8, 6-3 ####[facility] LABCLIA [id number] [address] [address] [place] Bilirubin [Mass/Vol] 0.6 mg/dL Normal 0.2-1.3 [facility] Comment on above: Order Comment: Speci men Type: BLOOD SPECIMENOrdering Facility: [facility] Address: [address] [place], [place] [address] Performed By: #### 2 4323-8, 93671-9, 3015-3 ####[facility] LABCLIA [id number] [place] [address] [place] Calcium [Mass/Vol] 9.4 mg/dL Normal 8.5-10.2 [facility] Comment on above: Order Comment: Speci men Type: BLOOD SPECIMENOrdering Facility: [facility] Address: [address] [place], [place] [address] Performed By: #### 2 4323-8, 44570-0, 3015-3 ####[facility] LABCLIA [id number] [place] [id number] [place] Chloride [Moles/Vol] 102 mmol/L Normal 98-107 [facility] Comment on above: Order Comment: Speci men Type: BLOOD SPECIMENOrdering Facility: [facility] Address: [address] [place] [address] Performed By: #### 2 4323-8, 29590-6, 3015-3 ####[facility] LABCLIA [id number] [place] [id number] [place] CO2 [Moles/Vol] 28 mmol/L Normal 22-30 [facility] Comment on above: Order Comment: Speci men Type: BLOOD SPECIMENOrdering Facility: [facility] Address: [address] [place] [address] Performed By: #### 2 4323-8, 76951-6, 6-3 ####[facility] LABIA [id number] [place] [id number] [place] Creatinine [Mass/Vol] 1.55 mg/dL High 0.73-1.22 [facility] Comment on above: Order Comment: Specbrice men Type: BLOOD SPECIMENOrdering Facility: [facility] Address: [address] [place] [address] Performed By: #### 2 4323-8, 69086-5, 6-3 ####[facility] LABIA [id number] [place] [address] [place] Creatinine and Glomerular filtration rate.predicted panel (S/P/Bld) 44 mL/min/1.73m??? Low >=60 [facility] Comment on above: Order Comment: Ian lassiter Type: BLOOD SPECIMENOrdering Facility: [facility] Address: [address] [place] [address] Result Comment: [place]eara mated Glomerular Filtration Rate (eGFR) is calculated using the 2020 CKD-EPI creatinine equation. This equation utilizes serum creatinine, sex, and age as parameters. The creatinine assay has traceable calibration to isotope dilution-mass spectrometry. Refer to KDIGO guidelines for clinical interpretation. In patients with unstable renal function, e.g. those with acute kidney injury, the eGFR may not accurately reflect actual GFR. Performed By: #### 2 4323-8, 72800-4, 3015-3 ####[facility] LABIA [id number] [place] [id number] [place] Glucose [Mass/Vol] 101 mg/dL High 74-99 [facility] Comment on above: Order Comment: Ian men Type: BLOOD SPECIMENOrdering Facility: [facility] Address: [address] [place] [address] Result Comment: The [place] Diabetes Association (ADA) provides guidance for cutoff values for fasting glucose and random glucose. The ADA defines fasting as no caloric intake for at least 8 hours. Fasting plasma glucose results between 100 to 125 mg/dL indicate increased risk for diabetes (prediabetes).Fasting plasma glucose results greater than or equal to 126 mg/dL meet the criteria for diagnosis of diabetes. In the absence of unequivocal hyperglycemia, results should be confirmed by repeat testing. In a patient with classic symptoms of hyperglycemia or hyperglycemic crisis, random plasma glucose results greater than or equal to 200 mg/dL meet the criteria for diagnosis of diabetes.Reference: Standards of Medical Care in Diabetes 2016, [place] [employer] Association. Diabetes Care. 2016.39(Suppl 1). Performed By: #### 2 4323-8, 83928-3, 3016-3 ####[facility] LABCLIA [id number] [place] [address] [place] Potassium [Moles/Vol] 4.5 mmol/L Normal 3.7-5.1 [facility] Comment on above: Order Comment: Speci men Type: BLOOD SPECIMENOrdering Facility: [facility] Address: [address] [place] [address] Performed By: #### 2 4323-8, 66566-5, 3015-3 ####[facility] LABIA [id number] [place] [address] [place] Protein [Mass/Vol] 6.8 g/dL Normal 6.3-8.0 [facility] Comment on above: Order Comment: Speci men Type: BLOOD SPECIMENOrdering Facility: [facility] Address: [address] [place], [place] [address] Performed By: #### 2 4323-8, 93832-9, 6-3 ####[facility] LABIA [id number] [place] [id number] [place] Sodium [Moles/Vol] 139 mmol/L Normal 136-144 [facility] Comment on above: Order Comment: Speci men Type: BLOOD SPECIMENOrdering Facility: [facility] Address: [address] [place] [address] Performed By: #### 2 4323-8, 54931-6, 3015-3 ####[facility] LABCLIA [id number] [place] [address] [place] Urea nitrogen [Mass/Vol] 47 mg/dL High 9-24 [facility] Comment on above: Order Comment: Speci men Type: BLOOD SPECIMENOrdering Facility: [facility] Address: [address] [place] [address] Performed By: #### 2 4323-8, 52537-1, 3015-3 ####[facility] LABCLIA [id number] [place] [address] [place] Lipid 1996 panelon 4 Cholesterol [Mass/Vol] 119 mg/dL Normal <200 [facility] Comment on above: Order Comment: Speci men Type: BLOOD SPECIMENOrdering Facility: [facility] Address: [address] [place] [address] Result Comment: <200 mg/dL, Desirable 200-239 mg/dL, Borderline high>239 mg/dL, High Performed By: #### 2 4323-8, 99315-1, 3 ####[facility] LABCLIA [id number] [place] [address] [place] Cholesterol in HDL [Mass/Vol] 40 mg/dL Normal >39 [facility] Comment on above: Order Comment: Speci men Type: BLOOD SPECIMENOrdering Facility: [facility] Address: [address] [place] [address] Result Comment: 40-5 9 mg/dL, Acceptable>59 mg/dL, High: Negative risk factor for coronary heart disease<40 mg/dL, Low: Positive risk factor for coronary heart disease Performed By: #### 2 4323-8, 95398-6, 3 ####[facility] LABCLIA [id number] [place] [id number] [place] Cholesterol in LDL [Mass/Vol] 62 mg/dL Normal <100 [facility] Comment on above: Order Comment: Speci men Type: BLOOD SPECIMENOrdering Facility: [facility] Address: [address] [place] [address] Result Comment: <100 mg/dL, Optimal 100-129 mg/dL, Near optimal/above optimal 130-159 mg/dL, Borderline high 160-189 mg/dL, High>189 mg/dL, Very highSecondary prevention optimal LDL Cholesterol levels are recommended to be < 70 mg/dL Performed By: #### 2 4323-8, 37638-4, 3015-3 ####[facility] LABCLIA [id number] [address] [address] [place] Cholesterol in LDL/Cholesterol in HDL [Mass ratio] 1.55 {ratio} Normal <2.54 [facility] Comment on above: Order Comment: Nahuni men Type: BLOOD SPECIMENOrdering Facility: [facility] Address: [address] [place] [address] Result Comment: Danielle christianson:1. National Cholesterol Education Program ATP III Guideline At-A-Glance Quick Desk Reference: National Heart, Lung, and Blood [place]. National Institutes of Health. 2001: NIH Publication No. 01-3305.2. An International Atherosclerosis Society position paper: global recommendations for the management of dyslipidemia: executive summary, Atherosclerosis. 2014: 232(2):410-413. Performed By: #### 2 4323-8, 36737-5, 3 ####[facility] LABCLIA [id number] [place] [id number] [place] Cholesterol in VLDL [Mass/Vol] 17 mg/dL Normal <30 [facility] Comment on above: Order Comment: Nahuni maikol Type: BLOOD SPECIMENOrdering Facility: [facility] Address: [address] [place] [id number] Performed By: #### 2 4323-8, 52496-7, 3015-3 ####[facility] LABCLIA [id number] [facility] [address] [address] [place] Cholesterol non HDL [Mass/Vol] 79 mg/dL Normal <130 [facility] Comment on above: Order Comment: Speci men Type: BLOOD SPECIMENOrdering Facility: [facility] Address: [address] [place] [address] Result Comment: <130 mg/dL, Optimal 130-159 mg/dL, Near optimal/above optimal 160-189 mg/dL, Borderline high 190-219 mg/dL, High>219 mg/dL, Very highSecondary prevention optimal non HDL Cholesterol levels are recommended to be <100 mg/dL Performed By: #### 2 4323-8, 99074-2, 3016-3 ####[facility] LABCLIA [id number] [place] [address] [place] Cholesterol.total/Cho lesterol in HDL [Mass ratio] 2.98 {ratio} Normal <5.10 [facility] Comment on above: Order Comment: Speci men Type: BLOOD SPECIMENOrdering Facility: [facility] Address: [address] [place] [address] Performed By: #### 2 4323-8, 74223-6, 6-3 ####[facility] LABCLIA [id number] [place] [address] [place] FASTING TIME 12 hrs Normal [facility] Comment on above: Order Comment: Speci men Type: BLOOD SPECIMENOrdering Facility: [facility] Address: [address] [place] [address] Performed By: #### 2 4323-8, 49241-9, 3016-3 ####[facility] LABCLIA [id number] [place] [id number] [place] Triglyceride [Mass/Vol] 83 mg/dL Normal <150 [facility] Comment on above: Order Comment: Speci men Type: BLOOD SPECIMENOrdering Facility: [facility] Address: [address] [place] [address] Result Comment: <150 mg/dL, Normal 150-199 mg/dL, Borderline high 200-499 mg/dL, High>499 mg/dL, Very high Performed By: #### 2 4323-8, 60322-8, 3016-3 ####[facility] LABCLIA [id number] [place] [id number] [place] TSH SerPl-aCncon 08-04-2024 TSH Qn 7.280 m[IU]/L High 0.270-4.200 [facility] [facility] Comment on above: Order Comment: Speci men Type: BLOOD SPECIMENOrdering Facility: [facility] Address: [address] [place] [address] Performed By: #### 2 4323-8, 99880-1, 3016-3 ####[facility] LABCLIA [id number] [place] [address] [place] CNPNon 08-01-2024 CNPN Normal [facility] Surgery Visit Reporton 07-26 Surgery Visit Report [facility]. [address] [place] [address] OFFICE VISIT Date of Service: 07/26/24 MR#: [id number] Acct: [id number] Name: LEANA CAMEJO Rep #: [id number] : 1940 Provider: Dr. 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 Required: No Is patient in pain?: No Allergies lisinopril Allergy (Intermediate, Verified 07/26/24 09:20) Rash atorvastatin calcium (From Lipitor) Allergy (Verified 07/26/24 09:20) Other clonidine Allergy (Verified 07/26/24 09:20) Unknown rosuvastatin calcium (From Crestor) Allergy (Verified 07/26/24 09:20) Other Obcglxd-ASJ-McD Reductase Inhibitor (Xpfygfh-Lzq-Ujq Reductase Inhibitor) Allergy (Verified 07/26/24 09:20) Other Medications ???Medication ???Instructions ???Recorded ???Confirmed ???Type losartan 100 mg tablet 100 mg PO DAILY BP 05/17/19 07/26/24 History cholecalciferol (vitamin D3) 50 2,000 unit PO DAILY supplement 05/18/19 07/26/24 History mcg (2,000 unit) capsule multivitamin 1 tab PO DAILY supplement 05/18/19 07/26/24 History ascorbic acid (vitamin C) 500 mg 2,000 mg PO DAILY supplement 02/14/20 07/26/24 History capsule carvedilol 12.5 mg tablet 12.5 mg PO BID heart #180 tabs 11/12/21 07/26/24 Rx doxazosin 8 mg tablet 8 mg PO QHS prostate 05/23/24 07/26/24 History hydralazine 100 mg tablet 100 mg PO TID blood pressure 05/23/24 07/26/24 History magnesium oxide 400 mg (241.3 mg 400 mg PO DAILY supplement 05/23/24 07/26/24 History magnesium) tablet aspirin 81 mg chewable tablet 81 mg PO BREAKFAST 30 days #30 tabs 05/24/24 07/26/24 Rx bempedoic acid 180 mg tablet 180 mg PO DAILY 07/11/24 07/26/24 History (Nexletol) ezetimibe 10 mg tablet 10 mg PO DAILY 07/11/24 07/26/24 History furosemide 20 mg tablet 20 mg PO DAILY 07/11/24 07/26/24 History polyethylene glycol 3350 17 17 g PO DAILY #238 grams 07/11/24 07/26/24 Rx gram/dose oral powder (Miralax) Have you fallen in the past year?: No PFSH Medical History Ataxia History of echocardiogram Easy bruising Excessive bleeding History of IBS Former smoker History of stress test Cardiology follow-up encounter History of irregular heartbeat Preop cardiovascular exam Irregular heart beat Stenosis of right internal carotid artery Abdominal aortic 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 Essential hypertension Lumbar disc disease 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 Hyperlipidemia Diverticulosis Pre-operative cardiovascular examination Anemia 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, NYHA class 2 RSV (respiratory syncytial virus pneumonia) Shortness of breath Cough productive of purulent sputum Surgical History S/P AAA repair History of right-sided carotid endarterectomy Hx of cataract surgery Hx of appendectomy History of tonsillectomy History of back surgery History of colonoscopy History of blepharoplasty History of inguinal hernia repair History of umbilical hernia repair 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 Family History Father Lung cancer Liver cancer Mother Oral cancer Social History household members: spouse Smoking Status: Former smoker second hand exposure: No alcohol intake: never substance use type: does not use caffeine: Yes Type: coffee Number of servings: 2 HPI HPI HPI: 84-year-old male presents for follow-up from ER on 07/11/2024 patient was having left-sided abdominal pain CT abdomen pelvis showed left spigelian hernia. This was able to be reduced in the ER. Patient denies having any issues since the ER visit or prior to the ER visit. Patient had a CT abdomen pelvis in 2022 which again shows this left spigelian hernia containing fat. Patient has had a right inguinal hernia pair, umbilical hernia pair and AAA EVAR with endoleak type II in the past. ROS General General: Yes fatigue and weakness; No weight change, appetite, colon cancer or breast cancer HEENT HEENT: Yes eye surgery; No difficulty swallowing, eye injury, swollen glands or hoarseness Endo Endocrine: No thyroid disease, diabetes mellitus, thyroid cancer, Hair loss, heat intolerance or cold intolerance Skin Skin: Yes rash; No changing moles Musc Musculoskele (more content not included)... [facility] CNOVon 07-17-[address] [facility] 12 Lead EKGon 07-11-2024 12 Lead EKG [facility] Cardiovascular Services [address] [place] [address] 12 Lead EKG 07/11/24 6873 MR#: [id number] Acct: [id number] Name: LEANA CAMEJO Rep #: [id number] : 1940 84 From: Donato Lognoria MD Attending Dr: Status: DEP ER Ordering Dr: Veena Nelson DO Date: 07/11/24 Location: ED Sex: M C Admitted: Test Reason : ABDOMINAL PAIN Blood Pressure : / mmHG Vent. Rate : 085 BPM Atrial Rate : 085 BPM P-R Int : 162 ms QRS Dur : 092 ms QT Int : 400 ms P-R-T Axes : 051 032 -05 degrees QTc Int : 476 ms Normal sinus rhythm Left ventricular hypertrophy with repolarization abnormality ( Sokolow-Lindsay , Romhilt-Noguera ) Abnormal ECG Confirmed by DONATO LONGORIA MD ([id number]), newspaper or periodical editor BENITA NUNN ([id number]) on 07/13/2024 9:08:10 AM Referred By: Confirmed By:DONATO LONGORIA MD 07/13/24 0908 Date Donato Longoria MD CC: Dr. Veena Nelson DO; Dr. Dallas Reed MD Signed Normal [facility]domen/Pelvis W IV Cont ONLY [facility] Imaging Services [address] [place] [address] Abdomen/Pelvis W IV Cont ONLY MR#: [id number] Acct: [id number] Name: LEANA CAMEJO Rep #: [id number] : 1940 M 84 From: Marisabel Quiñonez MD PCP: Dr. Dallas Reed MD Status: REG ER Study: Abdomen/Pelvis W IV Cont ONLY Date of Exam: Exam# [id number] Ordering Dr: Veena Nelson DO ADDENDUM by Dr. Marisabel Quiñonez MD on 07/11/24 at 2017 [id number] EXAM: CT ABDOMEN AND PELVIS WITH INTRAVENOUS CONTRAST CLINICAL INDICATION: llq abd pain, swelling TECHNIQUE: Helically acquired images were obtained of the abdomen and pelvis with intravenous contrast. This CT exam was performed using one or more of the following dose reduction techniques: automated exposure control, adjustment of the mA and/or kV according to patient size, and/or use of iterative reconstruction technique. RADIATION DOSE: CTDIvol = 11.36 mGy, DLP = 629.01 mGy-cmContrast: IV 100mL Isovue-300 COMPARISON: December 27, 2023, noted endoleak in the aneurysm sac around the double lumen components of the aortic stent grafts, reported to be stable from May 26, 2023. FINDINGS: LOWER THORAX: Calcifications or stents in left circumflex coronary artery, mild calcifications at the aortic valve leaflets, similar degree of borderline-mild cardiomegaly. Mild chronic-appearing increased interstitial changes in the lung bases similar to prior exam. No significant pericardial effusion. ABDOMEN: LIVER: This study is with portal venous phase of contrast as compared to prior CTA. Moderate calcifications of common and proximal superficial femoral arteries appear similar. GALLBLADDER AND BILE DUCTS: Unremarkable. No calcified gallstones. No gallbladder distention or wall edema. No intra- or extrahepatic biliary ductal dilation. PANCREAS: Larger cystic lesion along the inferior body of the pancreas, now roughly 1.8 cm x 1.4 cm x 1.3 cm, it was previously small bowel and only retrospectively seen on prior exam, previously 1 cm x 9 mm x 9 mm. SPLEEN: Increased splenomegaly, it is 17.1 cm AP by 9.8 cm transverse by 18.6 cm craniocaudal. It was 15.9 cm AP by 15.6 cm craniocaudal by 10.9 cm transverse. ADRENALS: Unremarkable. No nodules. KIDNEYS AND URETERS: See below. STOMACH AND BOWEL: Mildly thick-walled appearance of distal esophagus and GE junction and stomach similar to prior exam. Small duodenal diverticulum again noted. Mildly prominent fluid and gas in the small bowel. Moderate stool in much of the proximal half of the colon, mild gas and stool in the distal colon and rectum. Moderate-marked diverticulosis in the mid to distal colon and mild diverticulosis in the right colon. No evidence of significant acute diverticulitis. PELVIS: APPENDIX: Nonvisualized appendix. BLADDER: There appears to be large right Hutch type diverticulum urinary bladder, similar to prior exam. REPRODUCTIVE: Similar prostatomegaly, roughly 5.9 cm x 4.7 cm x 4.8 cm. ABDOMEN and PELVIS: INTRAPERITONEAL SPACE: Unremarkable. No ascites or other fluid collection. No free air. RETROPERITONEAL SPACE: Unremarkable. No retroperitoneal hematoma. BONES/JOINTS: Right hip prosthesis again noted. Mild degenerative spine changes similar to prior exam. No high-grade lumbar spine stenosis. No suspicious lytic or blastic abnormality. SOFT TISSUES: Herniation of the anterior wall of proximal sigmoid into left lower quadrant with gallium type hernia, the herniated partial segment contains gas, no obvious strangulation. VASCULATURE: Fairly azmw-zzbcr-didyafduq stenosis at the proximal SMA, at least mild stenosis at the proximal celiac axis. Rglm-fkanr-uxkakusla bilateral renal artery stenosis at the origins. Similar prior exam. Kidneys enhance symmetrically. LYMPH NODES: Unremarkable. No enlarged lymph nodes. TUBES, LINES AND DEVICES: Similar but larger appearance of the endoleak with [place] MUNDO supplied by the endoleak. The endoleak contrast to the left of the double lumen stent grafts within the aortic aneurysm measures roughly 2.6 cm AP x 2 cm transverse by 3.8 cm craniocaudal, it was 2.4 cm x 3 cm x 2.8 cm craniocaudal on prior exam. The total aneurysm sac at the level of the endoleak measures 5.7 cm AP by 5.6 cm transverse for a length of 6.7 cm, it was 5.1 cm AP by 5.3 cm transverse for a length of 6.1 cm. 07/11/242016 Date cc: Dr. Veena Nelson DO; Dr. Dallas Reed MD * Signed ADDENDUM by Dr. Marisabel Quiñonez MD on 07/11/[address]/Abdomen/Pelvis W IV Cont ONLY IMPRESSION: 1. Mildly increased size of the mid infrarenal aortic aneurysm. Increased size of the contrast-filled endoleak component within the aneurysm. Compared to 6 months ago. 2. No retroperitoneal hemorrhage (more content not included)... Normal [facility] Basic Metabolic Profile (BMP )on 07-11-2024 BUN/CRE 25.2 RATIO High 07-09 [facility] Comment on above: Performed By: #### L 100.0100, L500.2500 #### [facility] Laboratory [address] [place], [address] CA,Total 9.6 mg/dL Normal 8.5-10.1 [facility] Comment on above: Performed By: #### L 100.0100, L500.2500 #### [facility] Laboratory [address] [place], [address] Chloride [Moles/Vol] 104 mmol/L Normal 98-107 [facility] Comment on above: Performed By: #### L 100.0100, L500.2500 #### [facility] [address] [place], [address] CO2 [Moles/Vol] 30.0 mmol/L Normal 21.0-32.0 [facility] Comment on above: Performed By: #### L 100.0100, L500.2500 #### [facility] Laboratory [address] [place], [address] Creatinine [Mass/Vol] 1.63 mg/dL High 0.70-1.30 [facility] Comment on above: Result Comment: The validity of the calculated GFR GFRAA in patients over 70 years has not been determined. Clinical correlation is essential. Performed By: #### L 100.0100, L500.2500 #### [facility] [address] [place], [address] ECRCL 32.64 ml/min Normal [facility] Comment on above: Performed By: #### L 100.0100, L500.2500 #### [facility] [address] [place], [address] EST GFR - AA 52 mL/min Low >60 [facility] Comment on above: Result Comment: Afri can [place] GFR Calc Performed By: #### L 100.0100, L500.2500 #### [facility] [address] [place], [address] GAP 4 Low 5-15 [facility] Comment on above: Performed By: #### L 100.0100, L500.2500 #### [facility] [address] [place], [address] GFR/1.73 sq M.predicted among non-blacks MDRD (S/P/Bld) [Vol rate/Area] 43 mL/min/{1.73_m2} Low >60 [facility] Comment on above: Result Comment: Non- GFR Calc Performed By: #### L 100.0100, L500.2500 #### [facility] [address] [place], [address] Glucose [Mass/Vol] 118 mg/dL High 74-106 [facility] Comment on above: Result Comment: Fast ing Glucose result from 100 to 125 mg/dL suggests IMPAIRED HOMEOSTASIS per A.D.A. criteria. Performed By: #### L 100.0100, L500.2500 #### [facility] [address] [place], [address] Potassium [Moles/Vol] 4.1 mmol/L Normal 3.5-5.1 [facility] Comment on above: Performed By: #### L 100.0100, L500.2500 #### [facility] [address] [place], [address] Sodium [Moles/Vol] 138 mmol/L Normal 136-145 [facility] Comment on above: Performed By: #### L 100.0100, L500.2500 #### [facility] [address] [place], [address] Urea nitrogen [Mass/Vol] 41 mg/dL High 7-18 [facility] Comment on above: Performed By: #### L 100.0100, L500.2500 #### [facility] [address] [place], [address] CBC W/Diff, Automatedon 10-2 Absolute Lymph 0.90 X10 3/uL Normal 0.83-4.51 [facility] Comment on above: Performed By: #### L 100.0100, L500.2500 #### [facility] [address] [place], [address] Absolute Neut 4.8 X10 3/uL Normal 2.0-7.7 [facility] Comment on above: Performed By: #### L 100.0100, L500.2500 #### [facility] [address] [place], [address] Basophils/100 WBC (Bld) 0.5 % Normal 0-1 [facility] Comment on above: Performed By: #### L 100.0100, L500.2500 #### [facility] [address] [place], [address] Eosinophils/100 WBC (Bld) 1.7 % Normal 0-5 [facility] Comment on above: Performed By: #### L 100.0100, L500.2500 #### [facility] [address] [place], [address] Erythrocyte distribution width (RBC) [Ratio] 15.0 % High 11.6-14.6 [facility] Comment on above: Performed By: #### L 100.0100, L500.2500 #### [facility] [address] [place], [address] Hematocrit (Bld) [Volume fraction] 36.3 % Low 40-54 [facility] Comment on above: Performed By: #### L 100.0100, L500.2500 #### [facility] [address] [place], [address] Hemoglobin (Bld) [Mass/Vol] 11.8 g/dL Low 13.0-16.5 [facility] Comment on above: Performed By: #### L 100.0100, L500.2500 #### [facility] [address] [place], [address] IG% 0.500 Normal 0.0-0.9 [facility] Comment on above: Result Comment: IG% - Immature Granulocytes (promyelocytes, myelocytes and metamyelocytes) > 1% indicates that a LEFT SHIFT is Present. Performed By: #### L 100.0100, L500.2500 #### [facility] [address] [place], [address] Lymphocytes/100 WBC (Bld) 13.9 % Low 19-41 [facility] Comment on above: Performed By: #### L 100.0100, L500.2500 #### [facility] [address] [place], [address] MCH (RBC) [Entitic mass] 29.9 pg Normal 27.0-32.0 [facility] Comment on above: Performed By: #### L 100.0100, L500.2500 #### [facility] [address] [place], [address] MCHC (RBC) [Mass/Vol] 32.5 g/dL Normal 32-36 [facility] Comment on above: Performed By: #### L 100.0100, L500.2500 #### [facility] [address] [place], [address] MCV (RBC) [Entitic vol] 91.9 fL Normal 80-94 [facility] Comment on above: Performed By: #### L 100.0100, L500.2500 #### [facility] [address] [place], [address] Monocytes/100 WBC (Bld) 9.3 % Normal 0-10 [facility] Comment on above: Performed By: #### L 100.0100, L500.2500 #### [facility] [address] [place], [address] Neutrophils/100 WBC (Bld) 74.1 % High 47-70 [facility] Comment on above: Performed By: #### L 100.0100, L500.2500 #### [facility] [address] [place], [address] Nucleated RBC (Bld) [#/Vol] 0 10*3/uL Normal 0-5 [facility] Comment on above: Performed By: #### L 100.0100, L500.2500 #### [facility] [address] [place], [address] Platelet mean volume (Bld) [Entitic vol] 10.7 fL Normal 6.2-12.0 [facility] Comment on above: Performed By: #### L 100.0100, L500.2500 #### [facility] [address] [place], [address] Platelets (Bld) [#/Vol] 107 10*3/uL Low 150-450 [facility] Comment on above: Performed By: #### L 100.0100, L500.2500 #### [facility] [address] [place], [address] RBC (Bld) [#/Vol] 3.95 10*6/uL Low 4.6-6.2 [facility] Comment on above: Performed By: #### L 100.0100, L500.2500 #### [facility] [address] [place], [address] RDW SD 51.2 fl High 35.1-43.9 [facility] Comment on above: Performed By: #### L 100.0100, L500.2500 #### [facility] [address] [place], [address] WBC (Bld) [#/Vol] 6.5 10*3/uL Normal 4.4-11.0 [facility] Comment on above: Performed By: #### L 100.0100, L500.2500 #### [facility] Laboratory [address] [place], [address] CNOVon 07-11-2024 CNOV Normal [facility] Chest PA and Lateralon 07-11 Chest PA and Lateral [facility] Imaging Services [address] [place] [address] Chest PA and Lateral MR#: [id number] Acct: [id number] Name: LEANA CAMEJO Rep #: [id number] : 1940 M 84 From: Marisabel Quiñonez MD PCP: Dr. Dallas Reed MD Status: REG ER Study: Chest PA and Lateral Date of Exam: 07/11/24 Exam# [id number] Ordering Dr: Veena Nelson DO [id number] EXAM: XR CHEST, 2 VIEWS CLINICAL INDICATION: pleuritic chest pain TECHNIQUE: Frontal and lateral views of the chest. COMPARISON: May 23, 2024, April 01, 2023. FINDINGS: LUNGS AND PLEURAL SPACES: Similar minimal opacity at the left lateral lung base and slight blunting of the left lateral aspect angle, presumably due to scarring. Similar mildly coarse-appearing interstitial lung changes. No pneumothorax. No effusion. HEART: Similar upper limits of normal transverse cardiac diameter. MEDIASTINUM: There are stable calcified mediastinal and right hilar lymph nodes. BONES/JOINTS: Unremarkable. No acute fracture. SOFT TISSUES: Unremarkable. RAD/Chest PA and Lateral IMPRESSION: Stable chest. Old granulomatous disease and chronic interstitial changes. Electronically Signed: Marisabel Quiñonez MD at 18:53 EDT , CC: Dr. Veena Nelson DO; Dr. Dallas Reed MD Disc Recordist: Signed Normal [facility] Emergency Department Summary on 07-11-2024 Emergency Department Summary [facility] Medical Records Department [address] [place] [address] Emergency Department Summary 07/11/24 MR#: [id number] Acct: [id number] Name: LEANA CAMEJO Rep #: [id number] : 1940 84 From: Veena Nelson DO PCP: Dr. Dallas Reed MD Status:DEP ER Location: ED HPI HPI - GI History of Present Illness Chief Complaint: Abd Pain Informant: patient Narrative Narrative: Patient is an 84-year-old male with history of carotid artery stenosis, CKD 3, chronic diastolic heart failure, AAA with type II endoleak of aortic graft, hyperlipidemia, hypertension and multiple abdominal surgeries including open appendectomy as a child presenting with left lower quadrant swelling and pain. Patient states for about a week he has noticed a lump in his left lower quadrant. It is more pronounced when he stands up. He also states that when he takes a deep breath it hurts. He states the pain radiates up into his chest and back. The pain really started today. I told family about I do recommend he come to the emergency room as he did not want a wait till tomorrow to see his primary care doctor. Denies any chest pain at rest but states he does get a pain when he takes a deep breath however the pain is mostly in his left lower quadrant. States that he had a good bowel movement yesterday but none today. Has some increased pain with movement as well. Denies any injury to the area. Denies any difficulty breathing. Denies any urinary symptoms. No other complaints or concerns reported at this time [facility] Medical History Ataxia History of echocardiogram Easy bruising Excessive bleeding History of IBS Former smoker History of stress test Cardiology follow-up encounter History of irregular heartbeat Preop cardiovascular exam Irregular heart beat Stenosis of right internal carotid artery Abdominal aortic 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 Essential hypertension Lumbar disc disease 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 Hyperlipidemia Diverticulosis Pre-operative cardiovascular examination Anemia 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, NYHA class 2 RSV (respiratory syncytial virus pneumonia) Shortness of breath Cough productive of purulent sputum Home Medications ???Medication ???Instructions ???Recorded ???Last Taken ???Type losartan 100 mg tablet 100 mg PO DAILY BP 05/17/19 05/21/24 History cholecalciferol (vitamin D3) 50 2,000 unit PO DAILY supplement 05/18/19 05/23/24 History mcg (2,000 unit) capsule multivitamin 1 tab PO DAILY supplement 05/18/19 05/21/24 History ascorbic acid (vitamin C) 500 mg 2,000 mg PO DAILY supplement 02/14/20 05/23/24 History capsule carvedilol 12.5 mg tablet 12.5 mg PO BID heart #180 tabs 11/12/21 05/23/24 Rx doxazosin 8 mg tablet 8 mg PO QHS prostate 05/23/24 05/22/24 History hydralazine 100 mg tablet 100 mg PO TID blood pressure 05/23/24 05/23/24 History magnesium oxide 400 mg (241.3 mg 400 mg PO DAILY supplement 05/23/24 05/21/24 History magnesium) tablet aspirin 81 mg chewable tablet 81 mg PO BREAKFAST 30 days #30 tabs 05/24/24 Unknown Rx bempedoic acid 180 mg tablet 180 mg PO DAILY 07/11/24 Unknown History (Nexletol) ezetimibe 10 mg tablet 10 mg PO DAILY 07/11/24 Unknown History furosemide 20 mg tablet 20 mg PO DAILY 07/11/24 Unknown History polyethylene glycol 3350 17 17 g PO DAILY #238 grams 07/11/24 Unknown Rx gram/dose oral powder (Miralax) Allergy/AdvReac Type Severity Reaction Status Date / Time lisinopril Allergy Intermediate Rash Verified 07/11/24 16:12 atorvastatin calcium (From Allergy Other Verified 07/11/24 16:12 Lipitor) clonidine Allergy Unknown Verified 07/11/24 16:12 rosuvastatin calcium (From Allergy Other Verified 07/11/24 16:12 Crestor) Ifazjkd-MPZ-NoT Reductase Allergy Other Verified 07/11/24 16:12 Inhibitor (Pqqamds-Ylg-Hum Reductase Inhibitor) Family History Father Lung cancer Liver cancer Mother Oral cancer Surgical History S/P AAA repair History of right-sided carotid endarterectomy Hx of cataract surgery Hx of appendectomy History of tonsillectomy History of back surgery History of colonoscopy History of blepharoplasty History of inguinal hernia repair History of umbilical hernia repair 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 Social History household members: spouse Smoking Status: Former smoker second hand exposure: No alcohol intake: never substance use type: does not use caffeine: Yes Type: coffee Number of servings: 2 (more content not included)... Normal [facility] MR/BMS.[place] 07-07-2024 MR/BMS.BVS [facility] [address] [place] [address] OFFICE VISIT Date of Service: 07/07/24 MR#: [id number] Acct: [id number] Name: LEANA CAMEJO Rep #: [id number] 6 : 1940 Provider: CHRIS Orellana Age/Sex: 84/M Location: [facility] [place] Status: Signed with Addenda ADDENDUM by CHRIS Orellana on 07/13/24 at 1435 Intake Chief Complaint: Yearly [place] F/u Discuss imaging Allergies lisinopril Allergy (Intermediate, Verified 07/11/24 16:12) Rash atorvastatin calcium (From Lipitor) Allergy (Verified 07/11/24 16:12) Other clonidine Allergy (Verified 07/11/24 16:12) Unknown rosuvastatin calcium (From Crestor) Allergy (Verified 07/11/24 16:12) Other Iiykxux-PSH-CeO Reductase Inhibitor (Cwmbrlt-Xqn-Aqz Reductase Inhibitor) Allergy (Verified 07/11/24 16:12) Other Medications ???Medication ???Instructions ???Recorded ???Confirmed ???Type losartan 100 mg tablet 100 mg PO DAILY BP 05/17/19 07/11/24 History cholecalciferol (vitamin D3) 50 2,000 unit PO DAILY supplement 05/18/19 07/07/24 History mcg (2,000 unit) capsule multivitamin 1 tab PO DAILY supplement 05/18/19 07/11/24 History ascorbic acid (vitamin C) 500 mg 2,000 mg PO DAILY supplement 02/14/20 07/07/24 History capsule carvedilol 12.5 mg tablet 12.5 mg PO BID heart #180 tabs 11/12/21 07/11/24 Rx doxazosin 8 mg tablet 8 mg PO QHS prostate 05/23/24 07/11/24 History hydralazine 100 mg tablet 100 mg PO TID blood pressure 05/23/24 07/11/24 History magnesium oxide 400 mg (241.3 mg 400 mg PO DAILY supplement 05/23/24 07/07/24 History magnesium) tablet aspirin 81 mg chewable tablet 81 mg PO BREAKFAST 30 days #30 tabs 05/24/24 07/07/24 Rx bempedoic acid 180 mg tablet 180 mg PO DAILY 07/11/24 07/11/24 History (Nexletol) ezetimibe 10 mg tablet 10 mg PO DAILY 07/11/24 07/11/24 History furosemide 20 mg tablet 20 mg PO DAILY 07/11/24 07/11/24 History polyethylene glycol 3350 17 17 g PO DAILY #238 grams 07/11/24 Rx gram/dose oral powder (Miralax) Assessment and Plan Assessment and Plan (1) Type II endoleak of aortic graft: Status: Acute (2) Abdominal aortic 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: Status: Chronic Qualifiers: Abdominal aorta location: infrarenal aorta Qualified Code(s): I71.43 - Infrarenal abdominal aortic aneurysm, without rupture Comment: 4.67 x 4.82 cm in diameter as of January 19, 2023 (3) Carotid artery stenosis: Status: Acute Orders: Orders Carotid Duplex Ultrasound 07/07/24 I65.21 - Occlusion and stenosis of right carotid artery CTA Abd/Pelvis W/WO Contrast 01/01/25 I71.43 - Infrarenal abdominal aortic aneurysm, without rupture, I97.89 - Other postprocedural complications and disorders of the circulatory system, not elsewhere classified Plan On 07/12, patient presented to the ER with abdominal pain and 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 In his workup, he had a CT and images were reviewed with Dr Hawk, endoleak and aneurysm size are stable. Also received records from [facility], Dr. Kowalski had also felt that the endoleak was stable on his evaluation and recommended repeat imaging in 1 year which would be December. Will plan to repeat CTA in December and have him return to the office in December. This was discussed with the patient via telephone. We also discussed red flag signs/symptoms such as chest/abdominal/back pain which should lead him to present to the ER. He is agreeable to this plan. 07/13/24 1435 Date Carine Noble cc: Dr. Dallas Reed MD * Signed Intake Vital Signs 05/24/24 16:42 07/07/24 14:16 Height 5 ft 8 in Weight: 161 lb BP 136/70 H Blood Pressure Location Lt brachial Position Sitting Respiration 16 Pulse 72 Pulse Source Monitor Temp 97.7 F L Temp Source Temporal Pulse Oximetry (%) 98 Oxygen Delivery Method room air Intake Visit Reasons: HOSPITAL F/U Is patient in pain?: No Allergies lisinopril Allergy (Intermediate, Verified 07/07/24 14:18) Rash atorvastatin calcium (From Lipitor) Allergy (Verified 07/07/24 14:18) Other clonidine Allergy (Verified 07/07/24 14:18) Unknown rosuvastatin calcium (From Crestor) Allergy (Verified 07/07/24 14:18) Other Wfnujxu-HXI-HyZ Reductase Inhibitor (Namrbjx-Iin-Bte Reductase Inhibitor) Allergy (Verified 05/23/24 15:46) Other Medications ???Medication ???Instructions ???Recorded ???Confirmed ???Type losartan 100 mg tablet 100 mg PO DAILY BP 05/17/19 07/07/24 History cholecalciferol (vitamin D3) 50 2,000 unit PO DAILY supplement 05/18/19 07/07/24 History mcg (2,000 unit) capsule multivitamin 1 tab PO DAILY supplement 05/18/19 07/07/24 History ascorbic acid (vitamin C) 500 mg 2, (more content not included)... Normal [facility] CNPTOUTREACHon 06-22-2024 CNPTOUTREACH Normal [facility] CNOVon 06-07-2024 CNOV Normal [facility] CBC W Auto Differential pane l (Bld)on 05-31-2024 Basophils (Bld) [#/Vol] 0.04 10*3/uL Normal <0.11 [facility] Comment on above: Order Comment: Speci men Type: BLOOD SPECIMENOrdering Facility: [facility] Address: [address] [place] [address] Performed By: #### 5 7021-8 ####[facility] LABCLIA [id number] [place] [address] [place] Basophils/100 WBC (Bld) 0.6 % Normal [facility] Comment on above: Order Comment: Speci men Type: BLOOD SPECIMENOrdering Facility: [facility] Address: [address] [place] [address] Performed By: #### 5 7021-8 ####[facility] LABCLIA [id number] [place] [address] [place] Differential cell count method Nom (Bld) Auto Normal [facility] Comment on above: Order Comment: Speci men Type: BLOOD SPECIMENOrdering Facility: [facility] Address: [address] [place] [address] Performed By: #### 5 7021-8 ####[facility] LABCLIA [id number] [place] [address] [place] Eosinophils (Bld) [#/Vol] 0.12 10*3/uL Normal <0.46 [facility] Comment on above: Order Comment: Speci men Type: BLOOD SPECIMENOrdering Facility: [facility] Address: [address] [place] [address] Performed By: #### 5 7021-8 ####[facility] LABCLIA [id number] [place] [address] [place] Eosinophils/100 WBC (Bld) 1.9 % Normal [facility] Comment on above: Order Comment: Speci men Type: BLOOD SPECIMENOrdering Facility: [facility] Address: [address] [place] [address] Performed By: #### 5 7021-8 ####[facility] LABCLIA [id number] [place] [address] [place] Erythrocyte distribution width (RBC) [Ratio] 15.8 % High 11.5-15.0 [facility] Comment on above: Order Comment: Speci men Type: BLOOD SPECIMENOrdering Facility: [facility] Address: [address] [place] [address] Performed By: #### 5 7021-8 ####[facility] LABIA [id number] [place] [address] [place] Hematocrit (Bld) [Volume fraction] 39.2 % Normal 39.0-51.0 [facility] Comment on above: Order Comment: Speci men Type: BLOOD SPECIMENOrdering Facility: [facility] Address: [address] [place] [address] Performed By: #### 5 7021-8 ####[facility] LABIA [id number] [place] [address] [place] Hemoglobin (Bld) [Mass/Vol] 12.6 g/dL Low 13.0-17.0 [facility] Comment on above: Order Comment: Speci men Type: BLOOD SPECIMENOrdering Facility: [facility] Address: [address] [place] [address] Performed By: #### 5 7021-8 ####[facility] LABIA [id number] [place] [address] [place] Immature granulocytes (Bld) [#/Vol] 0.03 10*3/uL Normal <0.10 [facility] Comment on above: Order Comment: Speci men Type: BLOOD SPECIMENOrdering Facility: [facility] Address: [address] [place] [address] Performed By: #### 5 7021-8 ####[facility] LABIA [id number] [place] [address] [place] Immature granulocytes/100 WBC (Bld) 0.5 % Normal [facility] Comment on above: Order Comment: Speci men Type: BLOOD SPECIMENOrdering Facility: [facility] Address: [address] [place] [address] Performed By: #### 5 7021-8 ####[facility] LABCLIA [id number] [place] [address] [place] Lymphocytes (Bld) [#/Vol] 1.04 10*3/uL Normal 1.00-4.00 [facility] Comment on above: Order Comment: Speci men Type: BLOOD SPECIMENOrdering Facility: [facility] Address: [address] [place] [address] Performed By: #### 5 7021-8 ####[facility] LABCLIA [id number] [place] [address] [place] Lymphocytes/100 WBC (Bld) 16.5 % Normal [facility] Comment on above: Order Comment: Speci men Type: BLOOD SPECIMENOrdering Facility: [facility] Address: [address] [place] [address] Performed By: #### 5 7021-8 ####[facility] LABCLIA [id number] [place] [address] [place] MCH (RBC) [Entitic mass] 29.7 pg Normal 26.0-34.0 [facility] Comment on above: Order Comment: Speci men Type: BLOOD SPECIMENOrdering Facility: [facility] Address: [address] [place] [address] Performed By: #### 5 7021-8 ####[facility] LABCLIA [id number] [place] [address] [place] MCHC (RBC) [Mass/Vol] 32.1 g/dL Normal 30.5-36.0 [facility] Comment on above: Order Comment: Speci men Type: BLOOD SPECIMENOrdering Facility: [facility] Address: [address] [place] [address] Performed By: #### 5 7021-8 ####[facility] LABCLIA [id number] [place] [address] [place] MCV (RBC) [Entitic vol] 92.5 fL Normal 80.0-100.0 [facility] Comment on above: Order Comment: Speci men Type: BLOOD SPECIMENOrdering Facility: [facility] Address: [address] [place] [address] Performed By: #### 5 7021-8 ####[facility] LABCLIA [id number] [place] [address] [place] Monocytes (Bld) [#/Vol] 0.63 10*3/uL Normal <0.87 [facility] Comment on above: Order Comment: Speci men Type: BLOOD SPECIMENOrdering Facility: [facility] Address: [address] [place] [address] Performed By: #### 5 7021-8 ####[facility] LABCLIA [id number] [place] [address] [place] Monocytes/100 WBC (Bld) 10.0 % Normal [facility] Comment on above: Order Comment: Speci men Type: BLOOD SPECIMENOrdering Facility: [facility] Address: [address] [place] [address] Performed By: #### 5 7021-8 ####[facility] LABCLIA [id number] [place] [address] [place] Neutrophils (Bld) [#/Vol] 4.46 10*3/uL Normal 1.45-7.50 [facility] Comment on above: Order Comment: Speci men Type: BLOOD SPECIMENOrdering Facility: [facility] Address: [address] [place] [address] Performed By: #### 5 7021-8 ####[facility] LABCLIA [id number] [place] [address] [place] Neutrophils/100 WBC (Bld) 70.5 % Normal [facility] Comment on above: Order Comment: Speci men Type: BLOOD SPECIMENOrdering Facility: [facility] Address: [address] [place] [address] Performed By: #### 5 7021-8 ####[facility] LABCLIA [id number] [place] [address] [place] Nucleated RBC (Bld) [#/Vol] 10*3/uL Normal <0.01 [facility] Comment on above: Order Comment: Speci men Type: BLOOD SPECIMENOrdering Facility: [facility] Address: [address] [place] [address] Performed By: #### 5 7021-8 ####[facility] LABCLIA [id number] [place] [address] [place] Nucleated RBC/100 WBC (Bld) [Ratio] 0.0 /100 WBC Normal [facility] Comment on above: Order Comment: Speci men Type: BLOOD SPECIMENOrdering Facility: [facility] Address: [address] [place] [address] Performed By: #### 5 7021-8 ####[facility] LABCLIA [id number] [place] [address] [place] Platelet mean volume (Bld) [Entitic vol] 12.5 fL Normal 9.0-12.7 [facility] Comment on above: Order Comment: Speci men Type: BLOOD SPECIMENOrdering Facility: [facility] Address: [address] [place] [address] Performed By: #### 5 7021-8 ####[facility] LABCLIA [id number] [place] [address] [place] Platelets (Bld) [#/Vol] 78 10*3/uL Low 150-400 [facility] Comment on above: Order Comment: Speci men Type: BLOOD SPECIMENOrdering Facility: [facility] Address: [address] [place] [address] Result Comment: No c lot detected. Performed By: #### 5 7021-8 ####[facility] LABIA [id number] [place] [address] [place] RBC (Bld) [#/Vol] 4.24 10*6/uL Normal 4.20-6.00 [facility] Comment on above: Order Comment: Speci men Type: BLOOD SPECIMENOrdering Facility: [facility] Address: [address] [place] [address] Performed By: #### 5 7021-8 ####[facility] LABIA [id number] [place] [address] [place] WBC (Bld) [#/Vol] 6.32 10*3/uL Normal 3.70-11.00 [facility] Comment on above: Order Comment: Speci men Type: BLOOD SPECIMENOrdering Facility: [facility] Address: [address] [place] [address] Performed By: #### 5 7021-8 ####[facility] [id number] [place] [address] [place] Comprehensive metabolic 2000 panelon 05-31-2024 Albumin [Mass/Vol] 3.7 g/dL Low 3.9-4.9 [facility] Comment on above: Order Comment: Speci men Type: BLOOD SPECIMENOrdering Facility: [facility] Address: [address] [place] [address] Performed By: #### 2 4323-8, 39310-7, 2276-4, 3016-3 ####[facility] [id number] [place] [address] [place] ALP [Catalytic activity/Vol] 57 U/L Normal 38-113 [facility] Comment on above: Order Comment: Speci men Type: BLOOD SPECIMENOrdering Facility: [facility] Address: [address] [place] [address] Performed By: #### 2 4323-8, 93487-4, 2276-4, 3016-3 ####[facility] LABCLIA [id number] [place] [address] [place] ALT [Catalytic activity/Vol] 22 U/L Normal 10-54 [facility] Comment on above: Order Comment: Speci men Type: BLOOD SPECIMENOrdering Facility: [facility] Address: [address] [place] [address] Performed By: #### 2 4323-8, 92654-8, 2276-4, 3016-3 ####[facility] LABIA [id number] [place] [address] [place] Anion gap [Moles/Vol] 10 mmol/L Normal 8-15 [facility] Comment on above: Order Comment: Speci men Type: BLOOD SPECIMENOrdering Facility: [facility] Address: [address] [place] [address] Performed By: #### 2 4323-8, 03664-5, 2276-4, 3016-3 ####[facility] LABIA [id number] [place] [address] [place] AST [Catalytic activity/Vol] 27 U/L Normal 14-40 [facility] Comment on above: Order Comment: Speci men Type: BLOOD SPECIMENOrdering Facility: [facility] Address: [address] [place] [address] Performed By: #### 2 4323-8, 75500-2, 2276-4, 3016-3 ####[facility] LABIA [id number] [place] [address] [place] Bilirubin [Mass/Vol] 0.8 mg/dL Normal 0.2-1.3 [facility] Comment on above: Order Comment: Speci men Type: BLOOD SPECIMENOrdering Facility: [facility] Address: [address] [place] [address] Performed By: #### 2 4323-8, 72958-7, 2276-4, 3016-3 ####[facility] LABCLIA [id number] [address] [address] [place] Calcium [Mass/Vol] 9.3 mg/dL Normal 8.5-10.2 [facility] Comment on above: Order Comment: Speci men Type: BLOOD SPECIMENOrdering Facility: [facility] Address: [address] [place] [address] Performed By: #### 2 4323-8, 98047-4, 2276-4, 3016-3 ####[facility] LABIA [id number] [place] [address] [place] Chloride [Moles/Vol] 100 mmol/L Normal 98-107 [facility] Comment on above: Order Comment: Speci men Type: BLOOD SPECIMENOrdering Facility: [facility] Address: [address] [place] [address] Performed By: #### 2 4323-8, 59965-4, 2276-4, 3016-3 ####[facility] LABIA [id number] [place] [id number] [place] CO2 [Moles/Vol] 27 mmol/L Normal 22-30 [facility] Comment on above: Order Comment: Speci men Type: BLOOD SPECIMENOrdering Facility: [facility] Address: [address] [place] [address] Performed By: #### 2 4323-8, 45794-7, 2276-4, 3016-3 ####[facility] LABIA [id number] [place] [id number] [place] Creatinine [Mass/Vol] 1.36 mg/dL High 0.73-1.22 [facility] Comment on above: Order Comment: Speci men Type: BLOOD SPECIMENOrdering Facility: [facility] Address: [address] [place] [address] Performed By: #### 2 4323-8, 60969-1, 2276-4, 3016-3 ####[facility] LABIA [id number] [place] [address] [place] Creatinine and Glomerular filtration rate.predicted panel (S/P/Bld) 51 mL/min/1.73m??? Low >=60 [facility] Comment on above: Order Comment: Ian lassiter Type: BLOOD SPECIMENOrdering Facility: [facility] Address: [address] [place] [address] Result Comment: [place] mated Glomerular Filtration Rate (eGFR) is calculated using the 2020 CKD-EPI creatinine equation. This equation utilizes serum creatinine, sex, and age as parameters. The creatinine assay has traceable calibration to isotope dilution-mass spectrometry. Refer to KDIGO guidelines for clinical interpretation. In patients with unstable renal function, e.g. those with acute kidney injury, the eGFR may not accurately reflect actual GFR. Performed By: #### 2 4323-8, 73878-0, 2276-4, 3016-3 ####[facility] LABIA [id number] [place] [address] [place] Glucose [Mass/Vol] 101 mg/dL High 74-99 [facility] Comment on above: Order Comment: Ian lassiter Type: BLOOD SPECIMENOrdering Facility: [facility] Address: [address] [place] [address] Result Comment: The [place] [employer] (ADA) provides guidance for cutoff values for fasting glucose and random glucose. The ADA defines fasting as no caloric intake for at least 8 hours. Fasting plasma glucose results between 100 to 125 mg/dL indicate increased risk for diabetes (prediabetes).Fasting plasma glucose results greater than or equal to 126 mg/dL meet the criteria for diagnosis of diabetes. In the absence of unequivocal hyperglycemia, results should be confirmed by repeat testing. In a patient with classic symptoms of hyperglycemia or hyperglycemic crisis, random plasma glucose results greater than or equal to 200 mg/dL meet the criteria for diagnosis of diabetes.Reference: Standards of Medical Care in Diabetes 2016, [place] [employer]. Diabetes Care. 2016.39(Suppl 1). Performed By: #### 2 4323-8, 88268-1, 2276-4, 3016-3 ####[facility] LABIA [id number] [address] [address] [place] Potassium [Moles/Vol] 4.1 mmol/L Normal 3.7-5.1 [facility] Comment on above: Order Comment: Speci men Type: BLOOD SPECIMENOrdering Facility: [facility] Address: [address] [place] [address] Performed By: #### 2 4323-8, 95981-1, 6-4, 3016-3 ####[facility] LABIA [id number] [place] [address] [place] Protein [Mass/Vol] 7.0 g/dL Normal 6.3-8.0 [facility] Comment on above: Order Comment: Speci men Type: BLOOD SPECIMENOrdering Facility: [facility] Address: [address] [place] [address] Performed By: #### 2 4323-8, 91292-2, 6-4, 3016-3 ####[facility] LABIA [id number] [place] [id number] [place] Sodium [Moles/Vol] 137 mmol/L Normal 136-144 [facility] Comment on above: Order Comment: Speci men Type: BLOOD SPECIMENOrdering Facility: [facility] Address: [address] [place] [address] Performed By: #### 2 4323-8, 57465-6, 2276-4, 3016-3 ####[facility] LABIA [id number] [place] [id number] [place] Urea nitrogen [Mass/Vol] 31 mg/dL High 9-24 [facility] Comment on above: Order Comment: Speci men Type: BLOOD SPECIMENOrdering Facility: [facility] Address: [address] [place] [address] Performed By: #### 2 4323-8, 68975-5, 6-4, 6-3 ####[facility] LABCLIA [id number] [address] [address] [place] Ferritin SerPl-ncon 2023 Ferritin [Mass/Vol] 297.0 ng/mL Normal 30.3-565.7 [facility] Comment on above: Order Comment: Speci men Type: BLOOD SPECIMENOrdering Facility: [facility] Address: [address] [place] [id number] Performed By: #### 2 4323-8, 96439-5, 2275-4, 6-3 ####[facility] LABCLIA [id number] [place] [id number] [place] [employer] binding capaci panel 05-31-2024 Iron [Mass/Vol] 93 ug/dL Normal 41-186 [facility] Comment on above: Order Comment: Speci men Type: BLOOD SPECIMENOrdering Facility: [facility] Address: [address] [id number] Performed By: #### 2 4323-8, 43447-5, 2275-4, 6-3 ####[facility] LABCLIA [id number] [place] [id number] [place] Iron binding capacity [Mass/Vol] 271 ug/dL Normal 232-386 [facility] Comment on above: Order Comment: Speci men Type: BLOOD SPECIMENOrdering Facility: [facility] Address: [address] [place] [address] Performed By: #### 2 4323-8, 07321-4, 6-4, 6-3 ####[facility] LABCLIA [id number] [address] [address] [place] Iron/TIBC [Molar ratio] 34.3 % Normal 15.0-57.0 [facility] Comment on above: Order Comment: Speci men Type: BLOOD SPECIMENOrdering Facility: [facility] Address: [address] [place] [address] Performed By: #### 2 4323-8, 23537-2, 2276-4, 3016-3 ####[facility] LABCLIA [id number] [place] [address] [place] TSH SerPl-aCncon 05-31-2024 TSH Qn 4.400 m[IU]/L High 0.270-4.200 [facility] Comment on above: Order Comment: Speci men Type: BLOOD SPECIMENOrdering Facility: [facility] Address: [address] [place] [address] Performed By: #### 2 4323-8, 79941-9, 2276-4, 3016-3 ####[facility] LABCLIA [id number] [place] [address] [place] Urinalysis complete panel (U )on 05-31-2024 Bacteria LM.HPF (Urine sed) [#/Area] Negative Normal Negative [facility] Comment on above: Order Comment: Speci men Type: URINE SPECIMENOrdering Facility: [facility] Address: [address] [place] [address] Performed By: #### 2 4356-8 ####[facility] LABCLIA [id number] [place] [address] [place] Bilirubin Ql (U) Negative Normal Negative [facility] Comment on above: Order Comment: Speci men Type: URINE SPECIMENOrdering Facility: [facility] Address: [address] [place] [address] Performed By: #### 2 4356-8 ####[facility] LABCLIA [id number] [place] [address] [place] Clarity (Unsp spec) Clear Normal Clear [facility] Comment on above: Order Comment: Speci men Type: URINE SPECIMENOrdering Facility: [facility] Address: [address] [place] [address] Performed By: #### 2 4356-8 ####[facility] LABCLIA [id number] [place] [address] [place] Color (U) Yellow Normal Yellow [facility] Comment on above: Order Comment: Speci men Type: URINE SPECIMENOrdering Facility: [facility] Address: [address] [place] [address] Performed By: #### 2 4356-8 ####[facility] LABIA [id number] [place] [address] [place] Epithelial cells LM.HPF (Urine sed) [#/Area] None Seen Normal [facility] Comment on above: Order Comment: Speci men Type: URINE SPECIMENOrdering Facility: [facility] Address: [address] [place] [address] Performed By: #### 2 4356-8 ####[facility] LABIA [id number] [place] [address] [place] Glucose Test strip (U) [Mass/Vol] Negative Normal Negative [facility] Comment on above: Order Comment: Speci men Type: URINE SPECIMENOrdering Facility: [facility] Address: [address] [place] [address] Performed By: #### 2 4356-8 ####[facility] LABIA [id number] [place] [address] [place] Hemoglobin Ql (U) Negative Normal Negative [facility] Comment on above: Order Comment: Speci men Type: URINE SPECIMENOrdering Facility: [facility] Address: [address] [place] [address] Performed By: #### 2 4356-8 ####[facility] LABCLIA [id number] [place] [address] [place] Hyaline casts (Urine sed) [#/Area] 1-3 /LPF Abnormal 0 /LPF [facility] Comment on above: Order Comment: Speci men Type: URINE SPECIMENOrdering Facility: [facility] Address: [address] [place] [address] Performed By: #### 2 4356-8 ####[facility] LABCLIA [id number] [place] [address] [place] Ketones Ql (U) Negative Normal Negative [facility] Comment on above: Order Comment: Speci men Type: URINE SPECIMENOrdering Facility: [facility] Address: [address] [place] [address] Performed By: #### 2 4356-8 ####[facility] LABCLIA [id number] [place] [address] [place] Leukocyte esterase Test strip Ql (U) Negative Normal Negative [facility] Comment on above: Order Comment: Speci men Type: URINE SPECIMENOrdering Facility: [facility] Address: [address] [place] [address] Performed By: #### 2 4356-8 ####[facility] LABCLIA [id number] [place] [address] [place] Nitrite Ql (U) Negative Normal Negative [facility] Comment on above: Order Comment: Speci men Type: URINE SPECIMENOrdering Facility: [facility] Address: [address] [place] [address] Performed By: #### 2 4356-8 ####[facility] LABCLIA [id number] [place] [address] [place] pH (U) 6.5 [pH] Normal <8.5 [facility] Comment on above: Order Comment: Speci men Type: URINE SPECIMENOrdering Facility: [facility] Address: [address] [place] [address] Performed By: #### 2 4356-8 ####[facility] LABCLIA [id number] [place] [address] [place] Protein (U) [Mass/Vol] Negative Normal Negative [facility] Comment on above: Order Comment: Speci men Type: URINE SPECIMENOrdering Facility: [facility] Address: [address] [place] [address] Performed By: #### 2 4356-8 ####[facility] LABIA [id number] [place] [address] [place] RBC LM.HPF (Urine sed) [#/Area] 0-2 /HPF Normal 0-2 /HPF [facility] Comment on above: Order Comment: Speci men Type: URINE SPECIMENOrdering Facility: [facility] Address: [address] [place] [address] Performed By: #### 2 4356-8 ####[facility] [id number] [place] [address] [place] Specific gravity (U) [Rel density] 1.016 Normal 1.005-1.030 [facility] Comment on above: Order Comment: Speci men Type: URINE SPECIMENOrdering Facility: [facility] Address: [address] [place] [address] Performed By: #### 2 4356-8 ####[facility] LABIA [id number] [place] [address] [place] Urobilinogen Ql (U) 1.0 EU/dL Normal 0.2-1.0 EU/dL [facility] Comment on above: Order Comment: Speci men Type: URINE SPECIMENOrdering Facility: [facility] Address: [address] [place] [address] Performed By: #### 2 4356-8 ####[facility] LABIA [id number] [place] [address] [place] WBC LM.HPF (Urine sed) [#/Area] 0-5 /HPF Normal 0-5 /HPF [facility] Comment on above: Order Comment: Speci men Type: URINE SPECIMENOrdering Facility: [facility] Address: [address] [place] [address] Performed By: #### 2 4356-8 ####[facility] LABCLIA [id number] [place] [address] [place] Vit B12 [facility] 024 Cobalamin (Vitamin B12) [Mass/Vol] 1487 pg/mL High 232-1245 [facility] Comment on above: Order Comment: Speci men Type: BLOOD SPECIMENOrdering Facility: [facility] Address: [address] [place] [address] Performed By: #### 2 132-9 ####[facility] LABCLIA [id number] [place] [address] [place] Brain without Contraston Brain without Contrast [facility] Imaging Services [address] [place] [id number] Brain without Contrast MR#: [id number] Acct: [id number] Name: LEANA CAMEJO Rep #: [id number] : 1940 M 84 From: Valerie yates MD PCP: Dr. Dallas Reed MD Status: ADM ELSIE Study: Brain without Contrast Date of Exam: 05/24/24 Exam# [id number] Ordering Dr: Margy Stark MD [id number] HISTORY: CVA, C/I DIZZINESS, OFF BALANCE. TECHNIQUE: Multiplanar and multisequence MR images of the brain were obtained without contrast. 284 images. COMPARISON: CT prior day. FINDINGS: BRAIN PARENCHYMA: Mild periventricular white matter changes. No abnormal focus of restricted diffusion. No acute intracranial hemorrhage identified. CSF SPACES: Mild volume loss. No significant midline shift or other mass effect.No extra-axial fluid collection. VASCULAR SYSTEM: Major intracranial flow voids are maintained. PARANASAL SINUSES AND MASTOID AIR CELLS: Trace fluid within the left mastoid air cells. ORBITS: Bilateral lens resections. MRI/Brain without Contrast IMPRESSION: No evidence for acute infarct. Mild chronic involutional and white matter changes. Electronically Signed: Valerie Alexandra MD at 11:25 EDT , CC: Dr. Margy Stark MD; Dr. Dallas Reed MD Disc Recordist: Signed Normal [facility] CBC W/Diff, Automatedon 09- SMEAR COMMENT COMMENT Normal [facility] Comment on above: Result Comment: THRO MBOCYTOPENIA Performed By: #### L 501.9520, L501.9985, L500.4050, L100.0100, L500.4100 ####[facility] [address] [place], [address] Comprehensive Metabolic Prof ilon 05-24-2024 Albumin [Mass/Vol] 2.8 g/dL Low 3.2-5.0 [facility] Comment on above: Order Comment: Comme nts: NPO at MD prior to lipid panel Performed By: #### L 501.9520, L501.9985, L500.4050, L100.0100, L500.4100 ####[facility] [address] [place], [address] Albumin/Globulin [Mass ratio] 0.8 {ratio} Low 0.9-2.4 [facility] Comment on above: Order Comment: Comme nts: NPO at [place] prior to lipid panel Performed By: #### L 501.9520, L501.9985, L500.4050, L100.0100, L500.4100 ####[facility] [address] [place], [address] ALK P 52 U/L Normal 45-117 [facility] Comment on above: Order Comment: Comme nts: NPO at MD prior to lipid panel Performed By: #### L 501.9520, L501.9985, L500.4050, L100.0100, L500.4100 ####[facility] [address] [place], [address] ALT [Catalytic activity/Vol] 22 U/L Normal 16-61 [facility] Comment on above: Order Comment: Comme nts: NPO at [place] prior to lipid panel Performed By: #### L 501.9520, L501.9985, L500.4050, L100.0100, L500.4100 ####[facility] [address] [place], [address] AST [Catalytic activity/Vol] 21 U/L Normal 15-37 [facility] Comment on above: Order Comment: Comme nts: NPO at [place] prior to lipid panel Performed By: #### L 501.9520, L501.9985, L500.4050, L100.0100, L500.4100 ####[facility] [address] [place], [address] Bilirubin [Mass/Vol] 0.70 mg/dL Normal 0.20-1.00 [facility] Comment on above: Order Comment: Comme nts: NPO at [place] prior to lipid panel Result Comment: For patients on eltrombopag therapy, use of Dimension [place] TBIL is not recommended. Performed By: #### L 501.9520, L501.9985, L500.4050, L100.0100, L500.4100 ####[facility] [address] [place], [address] BUN/CRE 23.0 RATIO High 10-20 [facility] Comment on above: Order Comment: Comme nts: NPO at [place] prior to lipid panel Performed By: #### L 501.9520, L501.9985, L500.4050, L100.0100, L500.4100 ####[facility] [address] [place], [address] CA,Total 8.5 mg/dL Normal 8.5-10.1 [facility] Comment on above: Order Comment: Comme nts: NPO at [place] prior to lipid panel Performed By: #### L 501.9520, L501.9985, L500.4050, L100.0100, L500.4100 ####[facility] [address] [place], [address] Chloride [Moles/Vol] 110 mmol/L High 98-107 [facility] Comment on above: Order Comment: Comme nts: NPO at MN prior to lipid panel Performed By: #### L 501.9520, L501.9985, L500.4050, L100.0100, L500.4100 ####[facility] [address] [place], [address] CO2 [Moles/Vol] 25.0 mmol/L Normal 21.0-32.0 [facility] Comment on above: Order Comment: Comme nts: NPO at [place] prior to lipid panel Performed By: #### L 501.9520, L501.9985, L500.4050, L100.0100, L500.4100 ####[facility] [address] [place], [address] Creatinine [Mass/Vol] 1.26 mg/dL Normal 0.70-1.30 [facility] Comment on above: Order Comment: Comme nts: NPO at [place] prior to lipid panel Result Comment: The validity of the calculated GFR GFRAA in patients over 70 years has not been determined. Clinical correlation is essential. Performed By: #### L 501.9520, L501.9985, L500.4050, L100.0100, L500.4100 ####[facility] [address] [place], [address] ECRCL 42.22 ml/min Normal [facility] Comment on above: Order Comment: Comme nts: NPO at [place] prior to lipid panel Performed By: #### L 501.9520, L501.9985, L500.4050, L100.0100, L500.4100 ####[facility] [address] [place], [address] EST GFR - AA 70 mL/min Normal >60 [facility] Comment on above: Order Comment: Comme nts: NPO at [place] prior to lipid panel Result Comment: Afri can [place] GFR Calc Performed By: #### L 501.9520, L501.9985, L500.4050, L100.0100, L500.4100 ####[facility] [address] [place], [address] GAP 6 Normal 5-15 [facility] Comment on above: Order Comment: Comme nts: NPO at [place] prior to lipid panel Performed By: #### L 501.9520, L501.9985, L500.4050, L100.0100, L500.4100 ####[facility] [address] [place], [address] GFR/1.73 sq M.predicted among non-blacks MDRD (S/P/Bld) [Vol rate/Area] 58 mL/min/{1.73_m2} Low >60 [facility] Comment on above: Order Comment: Comme nts: NPO at MN prior to lipid panel Result Comment: Non- GFR Calc Performed By: #### L 501.9520, L501.9985, L500.4050, L100.0100, L500.4100 ####[facility] [address] [place], [address] Globulin (S) [Mass/Vol] 3.5 g/dL Normal 2.2-4.2 [facility] Comment on above: Order Comment: Comme nts: NPO at MN prior to lipid panel Performed By: #### L 501.9520, L501.9985, L500.4050, L100.0100, L500.4100 ####[facility] [address] [place], [address] Glucose [Mass/Vol] 91 mg/dL Normal 74-106 [facility] Comment on above: Order Comment: Comme nts: NPO at [place] prior to lipid panel Performed By: #### L 501.9520, L501.9985, L500.4050, L100.0100, L500.4100 ####[facility] [address] [place], [address] Potassium [Moles/Vol] 3.6 mmol/L Normal 3.5-5.1 [facility] Comment on above: Order Comment: Comme nts: NPO at [place] prior to lipid panel Performed By: #### L 501.9520, L501.9985, L500.4050, L100.0100, L500.4100 ####[facility] [address] [place], [address] Sodium [Moles/Vol] 141 mmol/L Normal 136-145 [facility] Comment on above: Order Comment: Comme nts: NPO at MN prior to lipid panel Performed By: #### L 501.9520, L501.9985, L500.4050, L100.0100, L500.4100 ####[facility] [address] [place], [address] T PROT 6.3 g/dL Low 6.4-8.2 [facility] Comment on above: Order Comment: Comme nts: NPO at MN prior to lipid panel Performed By: #### L 501.9520, L501.9985, L500.4050, L100.0100, L500.4100 ####[facility] [address] [place], [address] Urea nitrogen [Mass/Vol] 29 mg/dL High 7-18 [facility] Comment on above: Order Comment: Comme nts: NPO at [place] prior to lipid panel Performed By: #### L 501.9520, L501.9985, L500.4050, L100.0100, L500.4100 ####[facility] [address] [place], [address] Discharge Instructionon Discharge Instruction [facility] Medical Records Department [address] [place] [address] Instructions for Home/Discharge Instructions 05/24/24 1136 MR#: [id number] Acct: [id number] Name: LEANA CAMEJO Rep #: [id number] : 1940 84 From: Brant Alcantara MD PCP: Dr. Dallas Reed MD Status:ADM ELSIE Discharge Instructions Diet Discharge Diet: Low fat / Low cholesterol and 2000 mg Sodium Diet Activity Discharge Activity: Return to Normal Activity Weight Bearing Status: Weight bearing as tolerated Dressing / Incision Call your doctor if you observe: Fever of 101 or Higher, Coldness, Increased Pain, Numbness or Tingling, Change in Color, Inability to urinate, Inability to have a bowel movement, Shortness of breath, Dizziness, Fainting spells, Swelling in the ankles, Chest pain, Prolonged hiccupping, Increased palpitations (irregular heartbeat) and Calf discomfort Follow Up Care When: IN 2 WEEKS Test Results: Test results from this visit will be discussed in further detail at your follow-up appointment, if applicable. Discharge Plan Admission Admit Date/Time: 05/23/24 20:09 Primary Reason for Your Visit: tia Attending Provider: Brant Alcantara Primary Care Provider: Dallas Reed Consulting Providers: Alverto Cooley; Susan Isaac; Alia Santiago; Carine Rodríguez; Jaky Belle; John Mar; Nata Alvarez; Félix Lawrence; Haider Hendrix; Jesse Anaya; Luciana Guerra; Carlos Lemus; Roula Polk; Vale Muniz; Norberto Soria; Supa Avendano; Hortensia Oden; Manuel Acevedo; Kourtney Randolph; Poli,Diogenes; Margy Stark Instructions Additional Instructions / Restrictions: Advised to follow with PCP Martin, for prior authorization as patient is allergic to statin. Discharge Orders/Prescriptions Prescriptions: New aspirin 81 mg Tablet,Chewable 81 mg PO BREAKFAST 30 Days Qty: 30 3RF Rx Instructions: Discontinue if platelet count drops less than 50,000 or hemoglobin less than 8 g% Continued coenzyme Q10 100 mg capsule 100 mg PO DAILY cholecalciferol (vitamin D3) 2,000 unit capsule 2,000 unit PO DAILY multivitamin Tablet 1 tab PO DAILY losartan 100 mg tablet 100 mg PO DAILY glucosamine-chondroitin [Osteo Bi-Flex] 250-200 mg tablet 1 tab PO DAILY ascorbic acid (vitamin C) 500 mg capsule 2,000 mg PO DAILY carvedilol 12.5 mg tablet 12.5 mg PO BID Qty: 180 0RF magnesium oxide 400 mg (241.3 mg magnesium) tablet 400 mg PO DAILY doxazosin 8 mg tablet 8 mg PO QHS hydralazine 100 mg tablet 100 mg PO TID ketoconazole 2 % cream 1 applic topical BID Discontinued garlic 1,000 mg capsule 1,000 mg PO DAILY Referrals / Follow Up: Dallas Reed MD [Primary Care Provider] - Within 2 Weeks Disposition Disposition (needs filled in before D/C Order can be placed): Home, Self Care 05/24/24 1644 Brant Alcantara MD CC: Carine Rodríguez; Roula Polk; Supa Avendano; Jaky Belle MD; Alia Santiago MD; Alverto Cooley MD; Dr. Susan Isaac MD; Dr. Margy Stark MD; Dr. John Mar MD; Dr. Nata Alvarez MD; Dr. Haider Hendrix MD; Dr. Félix Lawrence MD; Dr. Jesse Anaya MD; Dr. Carlos Lemus DO; Dr. Norberto Soria MD; Dr. Vale Muniz MD; Dr. Hortensia Oden MD; Dr. Manuel Acevedo MD; Dr. Dallas Reed MD; Dr. Kourtney Randolph MD; Luciana Guerra DO; Diogenes Ashton MD Signed Normal [facility] Hemoglobin A1con 05-24-2024 HbA1c (Bld) [Mass fraction] 4.8 % Normal 3.8-5.6 [facility] Comment on above: Result Comment: Norm al < 5.7 % Prediabetic 5.7 - 6.4 % Diabetic >or= 6.5 % Please note range changes. Performed By: #### L 501.9520, L501.9985, L500.4050, L100.0100, L500.4100 ####[facility] [address] [place], [address] Lipid Profileon 05-24-2024 Cholesterol [Mass/Vol] 180 mg/dL Normal 200 [facility] Comment on above: Order Comment: Comme nts: NPO at [place] prior to lipid panel Result Comment: <200 mg/dL Desirable 200-240 mg/dL Borderline >240 mg/dL High Risk Performed By: #### L 501.9520, L501.9985, L500.4050, L100.0100, L500.4100 ####[facility] [address] [place], [address] Cholesterol in HDL [Mass/Vol] 44 mg/dL Normal [facility] Comment on above: Order Comment: Comme nts: NPO at [place] prior to lipid panel Result Comment: The drugs N-Acetylcysteine and Metamizole may falsely depress this assay. Reference Range HDL <40 mg/dL Low HDL Cholesterol HDL >or= 60 mg/dL High HDL Cholesterol Performed By: #### L 501.9520, L501.9985, L500.4050, L100.0100, L500.4100 ####[facility] [address] [place], [address] Cholesterol in LDL [Mass/Vol] 121 mg/dL Normal 0-130 [facility] Comment on above: Order Comment: Comme nts: NPO at [place] prior to lipid panel Performed By: #### L 501.9520, L501.9985, L500.4050, L100.0100, L500.4100 ####[facility] [address] [place], [address] Cholesterol in VLDL [Mass/Vol] 15 mg/dL Normal 5-40 [facility] Comment on above: Order Comment: Comme nts: NPO at MD prior to lipid panel Performed By: #### L 501.9520, L501.9985, L500.4050, L100.0100, L500.4100 ####[facility] [address] [place], [address] Triglyceride [Mass/Vol] 76 mg/dL Normal [facility] Comment on above: Order Comment: Comme nts: NPO at [place] prior to lipid panel Result Comment: The drugs N-Acetylcysteine and Metamizole may falsely depress this assay. Serum Triglycerides Reference Interval Normal <150 mg/dL Borderline high 150 - 199 mg/dL High 200 - 499 mg/dL Very High > or = 500 mg/dL Performed By: #### L 501.9520, L501.9985, L500.4050, L100.0100, L500.4100 ####[facility] [address] [place], [address] MR/CON.PCM.NEon 05-24-2024 MR/CON.PCM.NE [facility] Medical Records Department [address] [place] [address] Consultation - Neurology 05/24/24 1237 MR#: [id number] Acct: [id number] Name: LEANA CAMEJO Rep #: [id number] : 1940 84 From: Roula Polk MD PCP: Dr. Dallas Reed MD Status:DIS ELSIE Location: [place] [address] Assessment and Plan: Neuro Assessment/Plan LEANA CAMEJO is a 84 M being evaluated by Teleneurology for dizziness, positional described as room spinning sensation associated with dry heave, lasted for 24 hours,resolved now. MRI brain negative for stroke. CT angio showed stenosis in 50 -70% stenosis proximal right ICA,non contributory to current clinical presentation. Diagnosis: peripheral vertigo,Possibly BPPV Plan: Meclizine 25 mg TID for 5- days PRN, vestibular rehab as an outpatient. Continue with aspirin and statin. I personally attended this patient and spent a total time of 40 minutes evaluating this patient including clinical assessment, review of chart, medical history imaging, and determining appropriate treatment and workup. Roula Polk MD [facility] Teleneurology dept HPI Consult Data Date of Consult: 05/24/24 HPI Narrative HPI Narrative: LEANA CAMEJO, is a 84 M who presents with dizziness. He carries PMH of IBS, AAA s/p repair, Former tobacco use, Carotid disease (R ICA s/p R CEA), HFpEF, HTN, HLD, Chronic thrombocytopenia, CKD stage III . Initial ED evaluation NIH stroke scale 0 with no evidence of any focal deficits or ataxia. Patient notes that he was recently evaluated for the symptoms given ongoing and persistent by ENT however they noted concern that potentially it was because of his blood pressure but upon blood pressure check he noted that his pressure was high and not low. Workup in the ED included T98.2, heart rate 80, BP 187/114, respiratory rate 18, 99% on room air with most recent repeat vital sign heart rate 82, BP 174/79, respiratory rate 16, 95% on room air, CBC with WBC 5.2, hemoglobin 13.2, MCV 90.6, platelet 108 without marked shift, unremarkable coags aside PTT 38.8, BMP with chloride 108, BUN/creatinine 34/1.32, GFR 55, glucose 122, troponin 34, chest x-ray with no acute cardiopulmonary findings, CTA head and neck with 50 to 70% stenosis of the proximal right ICA with no change reportedly from previous per radiology note, CT of the head with no evidence of any acute intracranial findings, EKG with sinus rhythm with no acute evidence of ischemia. On my evaluation , patient's symptoms resolved. [facility] Medical History History of echocardiogram Easy bruising Excessive bleeding History of IBS Former smoker History of stress test Cardiology follow-up encounter History of irregular heartbeat Preop cardiovascular exam Irregular heart beat Stenosis of right internal carotid artery Abdominal aortic 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 Essential hypertension Lumbar disc disease 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 Hyperlipidemia Diverticulosis Pre-operative cardiovascular examination Anemia 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, NYHA class 2 RSV (respiratory syncytial virus pneumonia) Shortness of breath Cough productive of purulent sputum Home Medications ???Medication ???Instructions ???Recorded ???Last Taken ???Type glucosamine-chondroitin 250 mg-200 1 tab PO DAILY supplement 05/17/19 05/21/24 History mg tablet (Osteo Bi-Flex) losartan 100 mg tablet 100 mg PO DAILY BP 05/17/19 05/21/24 History cholecalciferol (vitamin D3) 50 2,000 unit PO DAILY supplement 05/18/19 05/23/24 History mcg (2,000 unit) capsule coenzyme Q10 100 mg capsule 100 mg PO DAILY supplement 05/18/19 05/21/24 History garlic 1,000 mg capsule 1,000 mg PO DAILY supplement 05/18/19 05/21/24 History multivitamin 1 tab PO DAILY supplement 05/18/19 05/21/24 History ascorbic acid (vitamin C) 500 mg 2,000 mg PO DAILY supplement 02/14/20 05/23/24 History capsule carvedilol 12.5 mg tablet 12.5 mg PO BID heart #180 tabs 11/12/21 05/23/24 Rx doxazosin 8 mg tablet 8 mg PO QHS 05/23/24 05/22/24 History hydralazine 100 mg tablet 100 mg PO TID 05/23/24 05/23/24 History ketoconazole 2 % topical cream 1 applic topical BID RASH 05/23/24 05/22/24 History magnesium oxide 400 mg (241.3 mg 400 mg PO DAILY 05/23/24 05/21/24 History magnesium) tablet Allergy/AdvReac Type Severity Reaction Status Date / Time lisinopril Allergy Intermediate Rash Verified 05/23/24 15:46 atorvastatin calcium (From Allergy Other Verified 05/23/24 15:46 Lipitor) clonidine Allergy Unknown Verified 05/23/24 15:46 rosuvastatin calcium (From Allergy Other Verified 05/23/24 15:46 Crestor) Gqatwhq-IXB-MtN Reductase Allergy Other Verified 05/23/24 15:46 Inhibitor (Statins (more content not included)... Normal [facility] Thyroid Stim Hormone (TSH)on 05-24-2024 TSH 3.380 uIU/mL Normal 0.358-3.740 [facility] Comment on above: Order Comment: Comme nts: NPO at MD prior to lipid panel Performed By: #### L 501.1217, L501.9985, L500.4050, L100.0100, L500.4100 ####[facility] [address] [place], [address] 12 Lead EKGon 05-23-2024 12 Lead EKG [facility] Cardiovascular Services [address] [place] [address] 12 Lead EKG 05/23/24 1630 MR#: [id number] Acct: [id number] Name: LEANA CAMEJO Rep #: [id number] : 1940 84 From: Donato Longoria MD Attending Dr: Dr. Brant Alcantara MD Status: DIS ELSIE Ordering Dr: Ganga Benito DO Date: 05/23/24 Location: [facility] Sex: M C Admitted: 05/23/24 Test Reason : DIZZINESS Blood Pressure : / mmHG Vent. Rate : 082 BPM Atrial Rate : 082 BPM P-R Int : 152 ms QRS Dur : 090 ms QT Int : 406 ms P-R-T Axes : 017 025 004 degrees QTc Int : 474 ms Normal sinus rhythm Minimal voltage criteria for LVH, may be normal variant ( Sokolow-Lindsay ) Borderline ECG Confirmed by ISAIAH LAWTON, DONATO ([id number]), newspaper or periodical editor BENITA NUNN ([id number]) on 05/25/2024 1:45:12 PM Referred By: SAUL Confirmed By:DONATO LONGORIA MD 05/25/24 1345 Date Donato Longoria MD CC: Dr. Brant Alcantara MD; Dr. Ganga Benito DO; Dr. Dallas Reed MD Signed Normal [facility] Basic Metabolic Profile (BMP )on 05-23-2024 BUN/CRE 25.8 RATIO High 10-20 [facility] Comment on above: Performed By: #### L 100.0100, L300.3900, L300.4310, L500.2500 ####[facility] [address] [place], [address] CA,Total 9.8 mg/dL Normal 8.5-10.1 [facility] Comment on above: Performed By: #### L 100.0100, L300.3900, L300.4310, L500.2500 ####[facility] [address] [place], [address] Chloride [Moles/Vol] 108 mmol/L High 98-107 [facility] Comment on above: Performed By: #### L 100.0100, L300.3900, L300.4310, L500.2500 ####[facility] [address] [place], [address] CO2 [Moles/Vol] 26.0 mmol/L Normal 21.0-32.0 [facility] Comment on above: Performed By: #### L 100.0100, L300.3900, L300.4310, L500.2500 ####[facility] [address] [place], [address] Creatinine [Mass/Vol] 1.32 mg/dL High 0.70-1.30 [facility] Comment on above: Result Comment: The validity of the calculated GFR GFRAA in patients over 70 years has not been determined. Clinical correlation is essential. Performed By: #### L 100.0100, L300.3900, L300.4310, L500.2500 ####[facility] [address] [place], [address] ECRCL 40.30 ml/min Normal [facility] Comment on above: Performed By: #### L 100.0100, L300.3900, L300.4310, L500.2500 ####[facility] [address] [place], [address] EST GFR - AA 66 mL/min Normal >60 [facility] Comment on above: Result Comment: Afri can [place] GFR Calc Performed By: #### L 100.0100, L300.3900, L300.4310, L500.2500 ####[facility] [address] [place], [address] GAP 7 Normal 5-15 [facility] Comment on above: Performed By: #### L 100.0100, L300.3900, L300.4310, L500.2500 ####[facility] [address] [place], [address] GFR/1.73 sq M.predicted among non-blacks MDRD (S/P/Bld) [Vol rate/Area] 55 mL/min/{1.73_m2} Low >60 [facility] Comment on above: Result Comment: Non- GFR Calc Performed By: #### L 100.0100, L300.3900, L300.4310, L500.2500 ####[facility] [address] [place], [address] Glucose [Mass/Vol] 122 mg/dL High 74-106 [facility] Comment on above: Result Comment: Fast ing Glucose result from 100 to 125 mg/dL suggests IMPAIRED HOMEOSTASIS per A.D.A. criteria. Performed By: #### L 100.0100, L300.3900, L300.4310, L500.2500 ####[facility] [address] [place], [address] Potassium [Moles/Vol] 4.1 mmol/L Normal 3.5-5.1 [facility] Comment on above: Performed By: #### L 100.0100, L300.3900, L300.4310, L500.2500 ####[facility] [address] [place], [address] Sodium [Moles/Vol] 141 mmol/L Normal 136-145 [facility] Comment on above: Performed By: #### L 100.0100, L300.3900, L300.4310, L500.2500 ####[facility] [address] [place], [address] Urea nitrogen [Mass/Vol] 34 mg/dL High 7-18 [facility] Comment on above: Performed By: #### L 100.0100, L300.3900, L300.4310, L500.2500 ####[facility] [address] [place], [address] CBC W/Diff, Automatedon 09-0 3-2023 Absolute Lymph 0.99 X10 3/uL Normal 0.83-4.51 [facility] Comment on above: Performed By: #### L 100.0100, L300.3900, L300.4310, L500.2500 #### [facility] Laboratory [address] [place], [address] Absolute Neut 3.7 X10 3/uL Normal 2.0-7.7 [facility] Comment on above: Performed By: #### L 100.0100, L300.3900, L300.4310, L500.2500 #### [facility] Laboratory [address] [place], [address] Basophils/100 WBC (Bld) 0.4 % Normal 0-1 [facility] Comment on above: Performed By: #### L 100.0100, L300.3900, L300.4310, L500.2500 #### [facility] Laboratory [address] [place], [address] Eosinophils/100 WBC (Bld) 0.6 % Normal 0-5 [facility] Comment on above: Performed By: #### L 100.0100, L300.3900, L300.4310, L500.2500 #### [facility] Laboratory [address] [place], [address] Erythrocyte distribution width (RBC) [Ratio] 15.6 % High 11.6-14.6 [facility] Comment on above: Performed By: #### L 100.0100, L300.3900, L300.4310, L500.2500 #### [facility] Laboratory [address] [place], [address] Hematocrit (Bld) [Volume fraction] 41.6 % Normal 40-54 [facility] Comment on above: Performed By: #### L 100.0100, L300.3900, L300.4310, L500.2500 #### [facility] Laboratory [address] [place], [address] Hemoglobin (Bld) [Mass/Vol] 13.2 g/dL Normal 13.0-16.5 [facility] Comment on above: Performed By: #### L 100.0100, L300.3900, L300.4310, L500.2500 #### [facility] Laboratory [address] [place], [address] IG% 0.400 Normal 0.0-0.9 [facility] Comment on above: Result Comment: IG% - Immature Granulocytes (promyelocytes, myelocytes and metamyelocytes) > 1% indicates that a LEFT SHIFT is Present. Performed By: #### L 100.0100, L300.3900, L300.4310, L500.2500 #### [facility] Laboratory [address] [place], [address] Lymphocytes/100 WBC (Bld) 19.0 % Normal 19-41 [facility] Comment on above: Performed By: #### L 100.0100, L300.3900, L300.4310, L500.2500 #### [facility] Laboratory [address] [place], [address] MCH (RBC) [Entitic mass] 28.8 pg Normal 27.0-32.0 [facility] Comment on above: Performed By: #### L 100.0100, L300.3900, L300.4310, L500.2500 #### [facility] Laboratory [address] [place], [address] MCHC (RBC) [Mass/Vol] 31.7 g/dL Low 32-36 [facility] Comment on above: Performed By: #### L 100.0100, L300.3900, L300.4310, L500.2500 #### [facility] Laboratory [address] [place], [address] MCV (RBC) [Entitic vol] 90.6 fL Normal 80-94 [facility] Comment on above: Performed By: #### L 100.0100, L300.3900, L300.4310, L500.2500 #### [facility] Laboratory [address] [place], [address] Monocytes/100 WBC (Bld) 8.1 % Normal 0-10 [facility] Comment on above: Performed By: #### L 100.0100, L300.3900, L300.4310, L500.2500 #### [facility] Laboratory [address] [place], [address] Neutrophils/100 WBC (Bld) 71.5 % High 47-70 [facility] Comment on above: Performed By: #### L 100.0100, L300.3900, L300.4310, L500.2500 #### [facility] Laboratory [address] [place], [address] Nucleated RBC (Bld) [#/Vol] 0 10*3/uL Normal 0-5 [facility] Comment on above: Performed By: #### L 100.0100, L300.3900, L300.4310, L500.2500 #### [facility] Laboratory [address] [place], [address] Platelet mean volume (Bld) [Entitic vol] 10.2 fL Normal 6.2-12.0 [facility] Comment on above: Performed By: #### L 100.0100, L300.3900, L300.4310, L500.2500 #### [facility] Laboratory [address] [place], [address] Platelets (Bld) [#/Vol] 108 10*3/uL Low 150-450 [facility] Comment on above: Performed By: #### L 100.0100, L300.3900, L300.4310, L500.2500 #### [facility] Laboratory [address] [place], [address] RBC (Bld) [#/Vol] 4.59 10*6/uL Low 4.6-6.2 [facility] Comment on above: Performed By: #### L 100.0100, L300.3900, L300.4310, L500.2500 #### [facility] Laboratory [address] [place], [address] RDW SD 52.4 fl High 35.1-43.9 [facility] Comment on above: Performed By: #### L 100.0100, L300.3900, L300.4310, L500.2500 #### [facility] Laboratory [address] [place], [address] WBC (Bld) [#/Vol] 5.2 10*3/uL Normal 4.4-11.0 [facility] Comment on above: Performed By: #### L 100.0100, L300.3900, L300.4310, L500.2500 #### [facility] Laboratory [address] [place], [address] CNOVon 05-23-2024 CNOV Normal [facility] CNPNon 05-23-2024 CNPN Normal [facility] CTA Head AND Neck W/ Contras ton 05-23-2024 CTA Head AND Neck W/ Contrast [facility] Imaging Services [address] [place] [address] CTA Head AND Neck W/ Contrast MR#: [id number] Acct: [id number] Name: LEANA CAMEJO Rep #: [id number] : 1940 M 84 From: Ana Palomino PCP: Dr. Dallas Reed MD Status: REG Study: CTA Head AND Neck W/ Contrast Date of Exam: Exam# [id number] Ordering Dr: Ganga Benito DO [id number] STUDY: CTA HEAD AND NECK WITH CONTRAST REASON FOR EXAM: Male, 84 years old. dizziness RADIATION DOSAGE (If Supplied By Facility): CTDIvol = ( 26.31 ) mGy, DLP = ( 1517.05 ) mGycm TECHNIQUE: CT angiography was performed with a multi-detector CT scanner. Data acquisition was obtained from the skull base through the vertex following intravenous administration of IV 100mL Isovue-370. MIP images were reconstructed from the axial data set. Post-processing of the angiographic images was performed, with multiplanar reformation and 3D reconstruction. Individualized dose optimization techniques were used for this CT. The protocol utilizes one or more of the following dose reduction techniques: automated exposure control, adjustment of mA and/or kV according to patient size,and/or use of iterative reconstruction technique. COMPARISON: No relevant priors. FINDINGS: Normal bilateral petrous carotid arteries. Normal right cavernous carotid artery with a normal supraclinoid bifurcation. Normal left cavernous carotid artery with a normal supraclinoid bifurcation. Normal right A1 segments of the anterior cerebral artery. Normal left A1 segments of the anterior cerebral artery. There is non-visualization of the anterior communicating artery (ACOM). Normal bilateral A2 segments of the anterior cerebral arteries. Normal right M1 and M2 segments of the middle cerebral arteries, with a normal M1 bifurcation. Normal left M1 and M2 segments of the middle cerebral arteries, with a normal M1 bifurcation. There is non-visualization of the right posterior communicating artery (PCOM). There is non-visualization of the left posterior communicating artery (PCOM). Normal bilateral vertebral arteries. Normal basilar artery with a normal basilar bifurcation. The visualized bilateral superior cerebellar (SCA) arteries are normal. Normal bilateral P1, P2 and visualized P3 segments of the posterior cerebral arteries. There is no demonstrated aneurysm of the [place]. There is no demonstrated abnormality of the visualized brain. AORTIC ARCH: Normal visualized aortic arch. Normal origins of the brachiocephalic, left common carotid, and left subclavian arteries. RIGHT CAROTID ARTERIES: Normal right common carotid artery (CCA). Moderate mixed plaque with 50-70% % stenosis and possible ulceration unchanged. Normal origin of the right internal carotid (ICA) artery without a hemodynamically significant stenosis. Normal visualized cervical portion of the right internal carotid artery. Normal origin of the right external carotid artery (ECA). LEFT CAROTID ARTERIES: Normal left common carotid artery (CCA). There is mild atherosclerotic plaque formation with minimal narrowing of the left carotid bulb. There is mild atherosclerotic plaque formation of the origin of the left internal carotid artery with less than 50% cross sectional diameter stenosis. Normal visualized cervical portion of the left internal carotid artery. Normal origin of the left external carotid artery (ECA). VERTEBRAL ARTERIES: Calcified plaque at the origin of both vertebral arteries with possible mild stenosis unchanged. CT/CTA Head AND Neck W/ Contrast IMPRESSION: 50-70% stenosis proximal right ICA. No change. Calcified plaque noted at the origin of vertebral arteries with possible mild stenosis unchanged. Electronically Signed: Ana Gong MD at 19:04 EDT Reading Location ID and State: [facility] / [place] Tel , Service support , CC: Dr. Ganga Benito DO; Dr. Dallas Reed MD Disc Recordist: Signed Normal [facility] Chest 1 View (Portable)on Chest 1 View (Portable) [facility] Imaging Services [address] [place] [address] [id number] Chest 1 View (Portable) MR#: [id number] Acct: [id number] Name: LEANA CAMEJO Rep #: [id number] : 1940 M 84 From: Ana Palomino PCP: Dr. Dallas Reed MD Status: PRE ER Study: Chest 1 View (Portable) Date of Exam: 05/23/24 Exam# [id number] Ordering Dr: Ganga Benito DO [id number] STUDY: X-RAY CHEST REASON FOR EXAM: Male, 84 years old. Stroke. DIZZY TECHNIQUE: Single frontal view of the chest. COMPARISON: April 01, 2023 FINDINGS: The lungs are clear and expanded. There is no demonstrated pleural abnormality. Normal size heart. There are calcified mediastinal lymph nodes. Normal visualized pulmonary arteries. Normal visualized aortic arch and descending thoracic aorta. Normal visualized thoracic spine. Normal visualized ribs, clavicles, and shoulders. There is no demonstrated abnormality of the visualized soft tissue structures of the upper abdomen. RAD/Chest 1 View (Portable) IMPRESSION: No acute disease Electronically Signed: Ana Gong MD at 17:16 EDT Reading Location ID and State: [address] [place] [address] Tel , Service support , CC: Dr. Ganga Benito DO; Dr. Dallas Reed MD Disc Recordist: Signed Normal [facility] Echo Completeon 05-23-2024 Echo Complete [facility] Cardiovascular Services [address] [place] [address] Echo Complete 05/24/24 0855 MR#: [id number] Acct: [id number] Name: LEANA CAMEJO Rep #: [id number] : 1940 84 From: Donato Longoria MD Attending Dr: Dr. Brant Alcantara MD Status: ADM ELSIE Ordering Dr: Margy Stark MD Date: 05/23/24 Location: [facility] Sex: M C Admitted: 05/23/24 Reason For Study: TIA/CVA Procedure This was a 2D Doppler, Color Flow transthoracic echocardiogram. Exam performed portable in patient room. Left Ventricle Normal LV size. Left ventricular systolic function is normal. The left ventricular ejection fraction is 55 %. No regional wall motion abnormalities noted. Right Ventricle Normal RV size. Normal systolic function. Atria The left atrium is mildly enlarged. Normal right atrium. Bubble contrast study negative for right to left interatrial shunt. Mitral Valve There is mild mitral annular calcification. Tricuspid Valve Normal tricuspid valve. Aortic Valve Trisinus/trileaflet aortic valve. Mild focal aortic valve thickening. Pulmonic Valve Normal pulmonic valve. Great Vessels Normal aortic root. The pulmonary artery is normal size. Inferior vena cava collapse with respiration. Pericardium/Pleural No pericardial effusion. Medication Performed a rapid injection of agitated mix of 9 cc saline and 1cc air to assess for atrial septal defect. MMode/2D Measurements Calculations LVIDd: 5.0 cm IVSd: 1.3 cm Ao root diam: 3.5 cm LVIDs: 3.6 cm LVPWd: 1.3 cm RVDd: 3.6 cm FS: 29.0 % ___ LAV(MOD-bp): 77.9 ml LVAd ap4: 32.6 cm2 SV(MOD-sp4): 60.1 ml LAV(MOD-bp) Indexed: 42.7 ml/m2 LVLd ap4: 8.2 cm LAV(MOD-sp2): 71.1 ml EDV(MOD-sp4): 107.3 ml LAV(MOD-sp4): 82.4 ml EDV(sp4-el): 109.3 ml LVAs ap4: 18.7 cm2 LVLs ap4: 6.2 cm ESV(MOD-sp4): 47.2 ml ESV(sp4-el): 47.8 ml EF(MOD-sp4): 56.0 % EF(sp4-el): 56.3 % ___ SV(sp4-el): 61.5 ml LA A4 area: 24.3 cm2 LA dimension(2D): 4.5 cm ___ RA A4 area: 16.1 cm2 TAPSE: 2.3 cm Time Measurements MV dec time: 0.20 sec Doppler Measurements Calculations MV E max erin: 101.5 cm/sec Lat Peak E' Erin: 10.0 cm/sec Med Peak E' Erin: 5.9 cm/sec MV A max erin: 79.3 cm/sec E/E' lat: 10.1 E/E' med: 17.3 MV E/A: 1.3 ___ MV V2 max: 107.3 cm/sec MV P1/2t max erin: 107.6 cm/sec Ao V2 max: 159.8 cm/sec MV max P.6 mmHg MV P1/2t: 84.5 msec Ao max P.2 mmHg MV V2 mean: 56.7 cm/sec MV dec slope: 372.9 cm/sec2 Ao V2 mean: 104.8 cm/sec MV mean P.5 mmHg MVA(P1/2t): 2.6 cm2 Ao mean P.9 mmHg MV V2 VTI: 38.9 cm Ao V2 VTI: 33.9 cm AV (velocity ratio): 0.70 ___ LV V1 max: 94.2 cm/sec PA V2 max: 96.6 cm/sec PI dec slope: 199.1 cm/sec2 LV V1 max P.5 mmHg PA V2 mean: 69.6 cm/sec LV V1 mean P.4 mmHg LV V1 mean: 73.5 cm/sec LV V1 VTI: 23.8 cm ECHO/Echo Complete Interpretation Summary Normal LV size. Left ventricular systolic function is normal. The left ventricular ejection fraction is 55 %. The left atrium is mildly enlarged. Bubble contrast study negative for right to left interatrial shunt. Ordering Physician: Margy Stark Referring Physician: Dallas Reed Performed By: Kala Dc, KATHRYN, RVT 05/24/24 102 Date Donato Longoria MD CC: Dr. Margy Stark MD; Dr. Brant Alcantara MD; Dr. Dallas Reed MD Date Dictated: 05/24/24854 Date Transcribed: 05/24/24 102 Disc Recordist: Signed Normal [facility] Emergency Department Summary on 05-23-2024 Emergency Department Summary [facility] Medical Records Department [address] [place] [address] Emergency Department Summary 05/23/24 MR#: [id number] Acct: [id number] Name: LEANA CAMEJO Rep #: [id number] : 1940 84 From: Ganga Benito DO PCP: Dr. Dallas Reed MD Status:REG ER Location: ED HPI History of Present Illness Chief Complaint: Dizziness PFSH [facility] Medical History Abdominal aortic 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 Anemia Cardiology follow-up encounter Cough productive of purulent sputum 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, NYHA class 2 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 Diverticulosis Easy bruising Essential hypertension Excessive bleeding Former smoker History of echocardiogram History of IBS History of irregular heartbeat History of stress test Hyperlipidemia Irregular heart beat Lumbar disc disease Pre-operative cardiovascular examination Preop cardiovascular exam RSV (respiratory syncytial virus pneumonia) Shortness of breath Stenosis of right internal carotid artery Home Medications ???Medication ???Instructions ???Recorded ???Last Taken ???Type glucosamine-chondroitin 250 mg-200 1 tab PO DAILY supplement 05/17/19 05/21/24 History mg tablet (Osteo Bi-Flex) losartan 100 mg tablet 100 mg PO DAILY BP 05/17/19 05/21/24 History cholecalciferol (vitamin D3) 50 2,000 unit PO DAILY supplement 05/18/19 05/23/24 History mcg (2,000 unit) capsule coenzyme Q10 100 mg capsule 100 mg PO DAILY supplement 05/18/19 05/21/24 History garlic 1,000 mg capsule 1,000 mg PO DAILY supplement 05/18/19 05/21/24 History multivitamin 1 tab PO DAILY supplement 05/18/19 05/21/24 History ascorbic acid (vitamin C) 500 mg 2,000 mg PO DAILY supplement 02/14/20 05/23/24 History capsule carvedilol 12.5 mg tablet 12.5 mg PO BID heart #180 tabs 11/12/21 05/23/24 Rx doxazosin 8 mg tablet 8 mg PO QHS 05/23/24 05/22/24 History hydralazine 100 mg tablet 100 mg PO TID 05/23/24 05/23/24 History ketoconazole 2 % topical cream 1 applic topical BID RASH 05/23/24 05/22/24 History magnesium oxide 400 mg (241.3 mg 400 mg PO DAILY 05/23/24 05/21/24 History magnesium) tablet Allergy/AdvReac Type Severity Reaction Status Date / Time lisinopril Allergy Intermediate Rash Verified 05/23/24 15:46 atorvastatin calcium (From Allergy Other Verified 05/23/24 15:46 Lipitor) clonidine Allergy Unknown Verified 05/23/24 15:46 rosuvastatin calcium (From Allergy Other Verified 05/23/24 15:46 Crestor) Xazdzpu-UOX-IlK Reductase Allergy Other Verified 05/23/24 15:46 Inhibitor (Hhzjacz-Ign-Kwo Reductase Inhibitor) Family History Father Lung cancer Liver cancer Mother Oral cancer Surgical History History of back surgery History of blepharoplasty History of colonoscopy History of inguinal hernia repair History of right-sided carotid endarterectomy History of tonsillectomy History of total hip replacement History of total left knee replacement History of umbilical hernia repair Hx of appendectomy Hx of cataract surgery Social History Smoking Status: Former smoker second hand exposure: No alcohol intake: never substance use type: does not use caffeine: Yes Type: coffee Number of servings: 2 EXAM Physical Exam Const Vital Signs: 05/23/24 15:47 05/23/24 17:09 05/23/24 17:14 Temperature 98.2 F Temperature Source Temporal Pulse Rate 80 Respiratory Rate 18 Blood Pressure 187/114 H 219/107 H Blood Pressure Mean 138 134 Pulse Ox 99 Oxygen Delivery Method Room Air Room Air 05/23/24 17:17 05/23/24 17:36 05/23/24 17:45 Temperature Temperature Source Pulse Rate 80 90 83 Respiratory Rate 13 18 16 Blood Pressure 219/107 H Blood Pressure Mean 144 Pulse Ox 99 97 96 Oxygen Delivery Method Room Air 05/23/24 18:00 05/23/24 18:00 05/23/24 18:15 Temperature Temperature Source Pulse Rate 82 86 83 Respiratory Rate 25 H 19 H 20 H Blood Pressure 182/97 H 182/97 H Blood Pressure Mean 125 121 Pulse Ox 98 96 97 Oxygen Delivery Method 05/23/24 18:30 05/23/24 18:39 05/23/24 18:44 Temperature Temperature Source Pulse Rate 81 94 86 Respiratory Rate 18 22 H 18 Blood Pressure 194/121 H 189/108 H Blood Pressure Mean 142 135 Pulse Ox 96 93 98 Oxygen Delivery Method Room Air 05/23/24 18:45 05/23/24 19:00 05/23/24 19:27 Temperature Temperature Source Pulse Rate 87 82 Respiratory Rate 20 H 19 H 16 Blood Pressure 189/108 H 174/79 H 174/79 (more content not included)... Normal [facility] H AND P Exam - Hospitaliston 05-23-2024 H&P Exam - Hospitalist [facility] Medical Records Department [address] [place] [address] H P Exam - Hospitalist 05/23/241958 MR#: [id number] Acct: [id number] Name: LEANA CAMEJO Rep #: [id number] : 1940 84 From: Margy Stark MD PCP: Dr. Dallas Reed MD Status:REG ER Location: ED HPI - General General Date of Admission: 05/23/24 Date of Service: 05/23/24 Chief Complaint: Imbalance, dizziness. HPI Narrative The patient is an 84 y/o M w/ PMHx: IBS, AAA s/p repair, Former tobacco use, Carotid disease (R ICA s/p R CEA), HFpEF, HTN, HLD, Chronic thrombocytopenia, CKD stage III per GFR trending who presents to the [facility] ED on 05/23/2024 with history of feeling off balance and dizzy with last known well approximately 48 hours prior more notable with ambulation with no recent headache or any other remarkably noted neurological findings but given ongoing prompted eventual ED evaluation to be cautious. Patient states that he has not been taking any antiplatelet therapy including even a baby aspirin. Initial ED evaluation NIH stroke scale 0 with no evidence of any focal deficits or ataxia. Patient notes that he was recently evaluated for the symptoms given ongoing and persistent by ENT however they noted concern that potentially it was because of his blood pressure but upon blood pressure check he noted that his pressure was high and not low. Workup in the ED included T98.2, heart rate 80, BP 187/114, respiratory rate 18, 99% on room air with most recent repeat vital sign heart rate 82, BP 174/79, respiratory rate 16, 95% on room air, CBC with WBC 5.2, hemoglobin 13.2, MCV 90.6, platelet 108 without marked shift, unremarkable coags aside PTT 38.8, BMP with chloride 108, BUN/creatinine 34/1.32, GFR 55, glucose 122, troponin 34, chest x-ray with no acute cardiopulmonary findings, CTA head and neck with 50 to 70% stenosis of the proximal right ICA with no change reportedly from previous per radiology note, CT of the head with no evidence of any acute intracranial findings, EKG with sinus rhythm with no acute evidence of ischemia. [facility] Medical History History of echocardiogram Easy bruising Excessive bleeding History of IBS Former smoker History of stress test Cardiology follow-up encounter History of irregular heartbeat Preop cardiovascular exam Irregular heart beat Stenosis of right internal carotid artery Abdominal aortic 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 Essential hypertension Lumbar disc disease 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 Hyperlipidemia Diverticulosis Pre-operative cardiovascular examination Anemia 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, NYHA class 2 RSV (respiratory syncytial virus pneumonia) Shortness of breath Cough productive of purulent sputum Home Medications ???Medication ???Instructions ???Recorded ???Last Taken ???Type glucosamine-chondroitin 250 mg-200 1 tab PO DAILY supplement 05/17/19 05/21/24 History mg tablet (Osteo Bi-Flex) losartan 100 mg tablet 100 mg PO DAILY BP 05/17/19 05/21/24 History cholecalciferol (vitamin D3) 50 2,000 unit PO DAILY supplement 05/18/19 05/23/24 History mcg (2,000 unit) capsule coenzyme Q10 100 mg capsule 100 mg PO DAILY supplement 05/18/19 05/21/24 History garlic 1,000 mg capsule 1,000 mg PO DAILY supplement 05/18/19 05/21/24 History multivitamin 1 tab PO DAILY supplement 05/18/19 05/21/24 History ascorbic acid (vitamin C) 500 mg 2,000 mg PO DAILY supplement 02/14/20 05/23/24 History capsule carvedilol 12.5 mg tablet 12.5 mg PO BID heart #180 tabs 11/12/21 05/23/24 Rx doxazosin 8 mg tablet 8 mg PO QHS 05/23/24 05/22/24 History hydralazine 100 mg tablet 100 mg PO TID 05/23/24 05/23/24 History ketoconazole 2 % topical cream 1 applic topical BID RASH 05/23/24 05/22/24 History magnesium oxide 400 mg (241.3 mg 400 mg PO DAILY 05/23/24 05/21/24 History magnesium) tablet Allergy/AdvReac Type Severity Reaction Status Date / Time lisinopril Allergy Intermediate Rash Verified 05/23/24 15:46 atorvastatin calcium (From Allergy Other Verified 05/23/24 15:46 Lipitor) clonidine Allergy Unknown Verified 05/23/24 15:46 rosuvastatin calcium (From Allergy Other Verified 05/23/24 15:46 Crestor) Vzdiocs-LKJ-IbN Reductase Allergy Other Verified 05/23/24 15:46 Inhibitor (Hvhagzv-Yms-Miq Reductase Inhibitor) Family History Father Lung cancer Liver cancer Mother Oral cancer Surgical History (Updated 05/23/24 @ 20:[address] Margy Stark MD) S/P AAA repair History of right-sided carotid endarterectomy Hx of cataract surgery Hx of appendectomy History of tonsillectomy History of back surgery (more content not included)... Normal [facility] L501.4020on 05-23-2024 TROPONIN-I HS 34 pg/mL Normal 3.0-78.0 [facility] Comment on above: Order Comment: 'TROP ' Serial specimen #1, #2 or #3: 1 Result Comment: Plenila rose Note: New Test Units and Gender Specific Reference Ranges. For more information see Policy Stat Procedure [place] High Sensitivity Troponin (TNIH) and attachments. Performed By: #### L 501.4020 ####[facility] [id number] [place], [address] Magnesiumon 05-23-2024 Magnesium [Mass/Vol] 2.4 mg/dL Normal 1.6-2.6 [facility] Comment on above: Order Comment: Comme nts: may add to ED labs Performed By: #### L 501.2450, L100.0100, BTS, L500.4050 #### [facility] Laboratory [address] [place], [address] Partial Thromboplast Timeon 05-23-2024 aPTT Coag (Bld) [Time] 38.8 s High 24.1-36.2 [facility] Comment on above: Performed By: #### L 100.0100, L300.3900, L300.4310, L500.2500 ####[facility] [id number] [place], [address] Prothrombin Time w/INRon INR Coag (PPP) [Relative time] 1.1 {INR} Normal [facility] Comment on above: Performed By: #### L 100.0100, L300.3900, L300.4310, L500.2500 ####[facility] [id number] [place], [address] PT Coag (PPP) [Time] 14.0 s Normal 11.7-14.9 [facility] Comment on above: Performed By: #### L 100.0100, L300.3900, L300.4310, L500.2500 ####[facility] [id number] [place], [address] No Panel Informationon 02-08 Radiology Study observation (narrative) [facility] XR Shoulder - left 3 Viewson 02-09-2024 IMPRESSION: Degenerative changes as described. Disc Recordist: [facility]SC[facility] Transcribe Date/Time: Feb 09 2024 4:46P Dictated by : JACKELIN KHAN MD This examination was interpreted and the report reviewed and electronically signed by: JACKELIN KHAN MD on Feb 09 2024 4:47PM [facility] DIVISION OF RADIOLOGY * * *Final Report* * * DATE OF EXAM: Feb 09 2024 4:47PM WOX 5252 - XR SHLDR >/=3V AP/FAB AP/OTHR LT / PROCEDURE REASON: multiple diagnoses * * * * Physician Interpretation * * * * CLINICAL INDICATION: Shoulder pain TECHNIQUE: 3 view radiographic study of the left shoulder COMPARISON: None FINDINGS: No acute fracture or dislocation identified. Mild glenohumeral joint space narrowing with small inferior glenoid marginal osteophyte formation. Moderate acromioclavicular joint space narrowing with hypertrophic change. Right mediastinal calcified lymph nodes compatible with the sequela of prior granulomatous exposure partially visualized. DIVISION OF RADIOLOGY Provider, [facility] - 02/09/2024 * * *Final Report* * * DATE OF EXAM: Feb 09 2024 4:47PM WOX 5252 - XR SHLDR >/=3V AP/FAB AP/OTHR LT / PROCEDURE REASON: multiple diagnoses * * * * Physician Interpretation * * * * CLINICAL INDICATION: Shoulder pain TECHNIQUE: 3 view radiographic study of the left shoulder COMPARISON: None FINDINGS: No acute fracture or dislocation identified. Mild glenohumeral joint space narrowing with small inferior glenoid marginal osteophyte formation. Moderate acromioclavicular joint space narrowing with hypertrophic change. Right mediastinal calcified lymph nodes compatible with the sequela of prior granulomatous exposure partially visualized. IMPRESSION IMPRESSION: Degenerative changes as described. Disc Recordist: [facility] Transcribe Date/Time: Feb 09 2024 4:46P Dictated by : JACKELIN KHAN MD This examination was interpreted and the report reviewed and electronically signed by: JACKELIN KHAN MD on Feb 09 2024 4:47PM EST [facility] XR Shoulder - right 3 Viewso n 02-09-2024 IMPRESSION: Degenerative changes as described. Disc Recordist: PSCB Transcribe Date/Time: Feb 09 2024 4:47P Dictated by : JACKELIN KHAN MD This examination was interpreted and the report reviewed and electronically signed by: JACKELIN KHAN MD on Feb 09 2024 4:48PM [facility] DIVISION OF RADIOLOGY * * *Final Report* * * DATE OF EXAM: Feb 09 2024 4:47PM WOX 5253 - XR SHLDR >/=3V AP/FAB AP/OTHR RT / PROCEDURE REASON: multiple diagnoses * * * * Physician Interpretation * * * * CLINICAL INDICATION: Shoulder pain TECHNIQUE: 3 view radiographic study of the right shoulder COMPARISON: None FINDINGS: No acute fracture or dislocation identified. Mild glenohumeral joint space narrowing with small inferior glenoid marginal osteophyte formation. Moderate acromioclavicular joint space narrowing with hypertrophic change. Right mediastinal calcified lymph nodes compatible with the sequela of prior granulomatous exposure. DIVISION OF RADIOLOGY Provider, Yamila Inocente [facility] - 02/09/2024 * * *Final Report* * * DATE OF EXAM: Feb 09 2024 4:47PM WOX 5253 - XR SHLDR >/=3V AP/FAB AP/OTHR RT / PROCEDURE REASON: multiple diagnoses * * * * Physician Interpretation * * * * CLINICAL INDICATION: Shoulder pain TECHNIQUE: 3 view radiographic study of the right shoulder COMPARISON: None FINDINGS: No acute fracture or dislocation identified. Mild glenohumeral joint space narrowing with small inferior glenoid marginal osteophyte formation. Moderate acromioclavicular joint space narrowing with hypertrophic change. Right mediastinal calcified lymph nodes compatible with the sequela of prior granulomatous exposure. IMPRESSION IMPRESSION: Degenerative changes as described. Disc Recordist: [facility] Transcribe Date/Time: Feb 09 2024 4:47P Dictated by : JACKELIN KHAN MD This examination was interpreted and the report reviewed and electronically signed by: JACKELIN KHAN MD on Feb 09 2024 4:48PM EST [facility] XR Shoulder - right 3 ViewsO rdered By: [facility] Provider on 02-09-2024 [facility] No Panel InformationOrdered By: Jovanny Rodriguez on 08-03-2023 Endomysial IgA Antibody Negative Negative [facility] Serum IgA measurement (units /volume)Ordered By: Jovanny Rodriguez on 08-03-2023 IgA Qn (S) 362 mg/dL 61-437 [facility] Comment on above: Performed at: [address] [id number] Director: Jovanny Walden PhD, Phone: [phone] Serum or plasma C reactive p rotein measurement (mass/volume)Ordered By: Jovanny Rodriguez on 08-03-2023 CRP [Mass/Vol] mg/L 0.0-3.0 [facility] Comment on above: C-Reactive Protein ( CRP) provides useful information for thediagnosis, therapy and monitoring of inflammatory processesand associated diseases. For the evaluation of Relative Riskfor Cardiovascular Disease, a High Sensitivity CRP (HSCRP)should be ordered. Serum tissue transglutaminas e IgA antibody assay (units/volume)Ordered By: Jovanny Rodriguez on 08-03-2023 tTG IgA Qn (S) <2 U/mL 0-3 [facility] Comment on above: Negative 0 - 3 Weak Positive 4 - 10 Positive >10 Tissue Transglutaminase (tTG) has been identified as the endomysial antigen. Studies have demonstr- ated that endomysial IgA antibodies have over 99% specificity for gluten sensitive enteropathy. Basophil percentageOrdered B y: Benita Reece on 05-26-2023 Creatinine [Mass/Vol] 1.1 mg/dL 0.70-1.30 [facility] No Panel InformationOrdered By: Benita Reece on 05-26-2023 Bedside Estimated GFR (eGFR) > 60.0000 mL/min >60 [facility] Basophil percentageOrdered B y: Omid Perez on 04-19-2023 Chloride [Moles/Vol] 104 mmol/L 98-107 [facility] Glucose [Mass/Vol] 102 mg/dL 74-106 [facility] Comment on above: Fasting Glucose resu lt from 100 to 125 mg/dL suggests IMPAIRED HOMEOSTASIS per A.D.A. criteria. Potassium [Moles/Vol] 3.7 mmol/L 3.5-5.1 [facility] Sodium [Moles/Vol] 139 mmol/L 136-145 [facility] Laboratory - Chemistry and C hemistry - challengeOrdered By: Omid Perez on 04-19-2023 CO2 [Moles/Vol] 33.0 mmol/L 21.0-32.0 [facility] Urea nitrogen/Creatinine [Mass ratio] 18.7 mg/mg 10-20 [facility] No Panel InformationOrdered By: Omid Perez on 04-19-2023 Estimated GFR (MDRD) Amer 57 mL/min >60 [facility] Comment on above: GFR Calc Estimated GFR (MDRD) Non-Af Amer 48 mL/min >60 [facility] Comment on above: Non- GFR Calc Serum or plasma calcium jossie urement (mass/volume)Ordered By: Omid Perez on 04-19-2023 Calcium [Mass/Vol] 8.9 mg/dL 8.5-10.1 [facility] Serum or plasma creatinine m easurement (mass/volume)Ordered By: Omid Perez on 04-19-2023 Creatinine [Mass/Vol] 1.50 mg/dL 0.70-1.30 [facility] Comment on above: The validity of the calculated GFR & GFRAA in patients over 70 years has not been determined. Clinical correlation is essential. Serum or plasma urea nitroge n measurement (mass/volume)Ordered By: Omid Perez on 04-19-2023 Urea nitrogen [Mass/Vol] 28 mg/dL 7-18 [facility] Thin prep Papanicolaou smear with manual screeningOrdered By: Omid Perez on 04-19-2023 Thin prep Papanicolaou smear with manual screening 2 5-15 [facility] Absolute lymphocyte countOrd ered By: Omid Perez on 04-08-2023 Lymphocytes Auto (Unsp spec) [#/Vol] 1.37 10*3/uL 0.83-4.51 [facility] Basophil percentageOrdered B y: Omid Perze on 04-08-2023 Basophils/100 WBC (Bld) 0.3 % 0-1 [facility] Chloride [Moles/Vol] 108 mmol/L 98-107 [facility] Eosinophils/100 WBC (Bld) 1.6 % 0-5 [facility] Glucose [Mass/Vol] 96 mg/dL 74-106 [facility] Neutrophils (Bld) [#/Vol] 6.3 10*3/uL 2.0-7.7 [facility] Neutrophils/100 WBC (Bld) 71.5 % 47-70 [facility] Potassium [Moles/Vol] 3.6 mmol/L 3.5-5.1 [facility] Sodium [Moles/Vol] 142 mmol/L 136-145 [facility] WBC (Bld) [#/Vol] 8.8 10*3/uL 4.4-11.0 [facility] Blood erythrocytes count (nu mber/volume)Ordered By: Omid Perez on 04-08-2023 RBC (Bld) [#/Vol] 3.95 10*6/uL 4.6-6.2 [facility] Blood hemoglobin measurement (mass/volume)Ordered By: Omid Perez on 04-08-2023 Hemoglobin (Bld) [Mass/Vol] 11.8 g/dL 13.0-16.5 [facility] Blood lymphocytes/100 leukoc ytesOrdered By: Omid Perez on 04-08-2023 Lymphocytes/100 WBC (Bld) 15.5 % 19-41 [facility] Blood monocytes/100 leukocyt esOrdered By: Omid Perez on 04-08-2023 Monocytes/100 WBC (Bld) 9.7 % 0-10 [facility] Blood platelet mean volumeOr dered By: Omid Perez on 04-08-2023 Platelet mean volume (Bld) [Entitic vol] 10.5 fL 6.2-12.0 [facility] Determination of erythrocyte mean corpuscular volume (MCV)Ordered By: Omid Perez on 04-08-2023 MCV (RBC) [Entitic vol] 92.2 fL 80-94 [facility] Hematocrit Auto (Bld) [Volum e fraction]Ordered By: Omid Perez on 04-08-2023 Hematocrit (Bld) [Volume fraction] 36.4 % 40-54 [facility] Laboratory - Chemistry and C hemistry - challengeOrdered By: Omid Perez on 04-08-2023 CO2 [Moles/Vol] 28.0 mmol/L 21.0-32.0 [facility] Urea nitrogen/Creatinine [Mass ratio] 18.0 mg/mg 10-20 [facility] Laboratory - Hematology and Cell countsOrdered By: Omid Perez on 04-08-2023 Erythrocyte distribution width (RBC) [Entitic vol] 51.8 fL 35.1-43.9 [facility] Erythrocyte distribution width (RBC) [Ratio] 15.3 % 11.6-14.6 [facility] Immature granulocytes/100 WBC (Bld) 1.400 % 0.0-0.9 [facility] Comment on above: IG% - Immature Granu locytes (promyelocytes, myelocytes and metamyelocytes) > 1% indicates that a LEFT SHIFT is Present. MCH (RBC) [Entitic mass] 29.9 pg 27.0-32.0 [facility] Nucleated RBC/100 WBC (Bld) [Ratio] 0 % 0-5 [facility] MCHC Auto (RBC) [Mass/Vol]Or dered By: Omid Perez on 04-08-2023 MCHC (RBC) [Mass/Vol] 32.4 g/dL 32-36 [facility] No Panel InformationOrdered By: Omid Perez on 04-08-2023 Estimated Creatinine Clearance Calc 48.78 ml/min [facility] Estimated GFR (MDRD) Amer 81 mL/min >60 [facility] Comment on above: GFR Calc Estimated GFR (MDRD) Non-Af Amer 67 mL/min >60 [facility] Comment on above: Non- GFR Calc Platelets bldOrdered By: Karthikeyan Perez on 04-08-2023 Platelets (Bld) [#/Vol] 107 10*3/uL 150-450 [facility] Serum or plasma calcium jossie urement (mass/volume)Ordered By: Omid Perez on 04-08-2023 Calcium [Mass/Vol] 8.2 mg/dL 8.5-10.1 [facility] Serum or plasma creatinine m easurement (mass/volume)Ordered By: Omid Perez on 04-08-2023 Creatinine [Mass/Vol] 1.11 mg/dL 0.70-1.30 [facility] Comment on above: The validity of the calculated GFR & GFRAA in patients over 70 years has not been determined. Clinical correlation is essential. Serum or plasma urea nitroge n measurement (mass/volume)Ordered By: Omid Perez on 04-08-2023 Urea nitrogen [Mass/Vol] 20 mg/dL 7-18 [facility] Thin prep Papanicolaou smear with manual screeningOrdered By: Omid Perez on 04-08-2023 Thin prep Papanicolaou smear with manual screening 6 5-15 [facility] No Panel InformationOrdered By: Omid Perez on 04-07-2023 Activated Clotting Time 143 sec 74-137 [facility] INR in Blood by Coagulation assayOrdered By: Dieter Christianson on 04-01-2023 INR Coag (Bld) [Relative time] 1.1 {INR} [facility] Laboratory - CoagulationOrde red By: Dieter Christianson on 04-01-2023 aPTT Coag (Bld) [Time] 43.0 s 24.1-36.2 [facility] PT Coag (PPP) [Time] 14.3 s 11.7-14.9 [facility] Basophil percentageOrdered B y: Dieter Christianson on 03-29-2023 Basophil percentage 2.4 mg/dL 2.5-4.9 [facility] Bilirubin [Mass/Vol] 0.60 mg/dL 0.20-1.00 [facility] Comment on above: For patients on eltr ombopag therapy, use of Dimension [place] TBIL is not recommended. Protein [Mass/Vol] 6.8 g/dL 6.4-8.2 [facility] Direct bilirubinOrdered By: Dieter Christianson on 03-29-2023 Bilirubin.direct [Mass/Vol] 0.17 mg/dL 0.00-0.30 [facility] Laboratory - Chemistry and C hemistry - challengeOrdered By: Dieter Christianson on 03-29-2023 ALP [Catalytic activity/Vol] 64 U/L 45-117 [facility] ALT [Catalytic activity/Vol] 22 U/L 16-61 [facility] Globulin (S) [Mass/Vol] 3.4 g/dL 2.2-4.2 [facility] Magnesium [Mass/Vol] 2.3 mg/dL 1.6-2.6 [facility] Serum or plasma albumin jossie urement (mass/volume)Ordered By: Dieter Christianson on 03-29-2023 Albumin [Mass/Vol] 3.4 g/dL 3.2-5.0 [facility] Thin prep Papanicolaou smear with manual screeningOrdered By: Dieter Christianson on 03-29-2023 Thin prep Papanicolaou smear with manual screening 19 U/L 15-37 [facility] Basophil percentageOrdered B y: Omid Perez on 02-23-2023 Chloride [Moles/Vol] 107 mmol/L 98-107 [facility] Glucose [Mass/Vol] 92 mg/dL 74-106 [facility] Potassium [Moles/Vol] 3.6 mmol/L 3.5-5.1 [facility] Sodium [Moles/Vol] 140 mmol/L 136-145 [facility] Laboratory - Chemistry and C hemistry - challengeOrdered By: Omid Perez on 02-23-2023 CO2 [Moles/Vol] 30.0 mmol/L 21.0-32.0 [facility] Urea nitrogen/Creatinine [Mass ratio] 24.8 mg/mg 10-20 [facility] No Panel InformationOrdered By: Omid Perez on 02-23-2023 Estimated GFR (MDRD) Amer 64 mL/min >60 [facility] Comment on above: GFR Calc Estimated GFR (MDRD) Non-Af Amer 53 mL/min >60 [facility] Comment on above: Non- GFR Calc Serum or plasma calcium jossie urement (mass/volume)Ordered By: Omid Perez on 02-23-2023 Calcium [Mass/Vol] 9.2 mg/dL 8.5-10.1 [facility] Serum or plasma creatinine m easurement (mass/volume)Ordered By: Omid Perez on 02-23-2023 Creatinine [Mass/Vol] 1.37 mg/dL 0.70-1.30 [facility] Comment on above: The validity of the calculated GFR & GFRAA in patients over 70 years has not been determined. Clinical correlation is essential. Serum or plasma urea nitroge n measurement (mass/volume)Ordered By: Omid Perez on 02-23-2023 Urea nitrogen [Mass/Vol] 34 mg/dL 7-18 [facility] Thin prep Papanicolaou smear with manual screeningOrdered By: Omid Perez on 02-23-2023 Thin prep Papanicolaou smear with manual screening 3 5-15 [facility] SURGICAL PATHOLOGYOrdered By : Matt Culp on 01-18-2023 Case Report Surgical Pathology R eport Case: [id number] Authorizing Provider: Lisa Rodriguez MD Collected: 01/15/2023 11:33 AM Ordering Location: Ambulatory Surgery Received: 01/15/2023 08:54 PM Pathologist: Matt Culp MD Specimen: COLON BIOPSY, random [facility] Work Phone: FINAL DIAGNOSIS t0hrgLXqCXLaxUBfKEEz NVxhbn XkMBHulQGgF6DbmnqkWAxcVG8h RC1jzToxcQHnyTFsTCWaFkUiu1 eka594kHCmp4dxYIOKzcsheCi7 tPeyE75qc0Q7GdemP25neKIyJN H3ZXVuBRHgvQZaBSIkOXE3LKCv kNGxX0qmKZJrHG5wjozjHHrcIN unNFYhiGD1PGXooFWcI8FwEDJj WRhsOXRsxlk4CaLsMu2dtZMekR cyMFxwYXJkXHBsYWluXGZzMjAg UyGeIK1pETObmU1rLSSryD9lh2 e9JNrvgcFiGBJYo4hkPFoiyx91 alJvd8yufJjwSlxiFIM0 [facility] Work Phone: Gross Description m8xurYZpSFJahYLGIZKk MDRcYW 1nbUyfkXl7sAvfNKQqyiP5uISh HWmqs5lnDEX2p3cbbdTJZlomHI IfTJtxJZFelyraKeY2XFgkBTWc adkgHKy1QDylBECpfWO4ZAMkcJ OhW4LwOUDfTR2dkuy8GBH8ZLss BBBvLpB6JCNmMsMaWvluWQj5AN ZkegZ6Lsj8VLRmMQJehSVvq5J3 ZXnuhtgfINYeaQJiM472OLnqn2 VjdGQgDQpccGFyZCANCntcKlxl eMedw9PqnVDqNTlgFRYjVTCnUR bckkoiLKi4XFLeEZkwjWVkFQ1z wVykInkvpZeje9ZiqRRnBKvgIB YnJIJhZWsvESGySX0JZqJbUWZn AJM1WUVhOxK7LMc6VOHUHoKeBq AgWsC6QdhrIbDcSCv3OEw8HTyJ FkYnRGO4LwC7IvXaASW6EHvkIN BcXHQgMiBcXGYgQXJpYWwgXFxm dNGlQT3vuFyitSUduiMZMmRWK9 uCXeDMJX7LC9cfzNIyYL1WGDYn eOJMVXL7LS4cXZXKFoekkLFvIC ZxhPppBIzitC4wCS1AGLi0yeEa HPTyVuOtVjGzZAr2UVAjtM0oIn 1ckTVslO4gRMYfBV41yLTteGcb RKEiNSIhdyZbDdG2VN1vHGSnUn MvmFeuz6CuYMHgI8VvG0D5bX1z XJHpRJNvLaE2VRVzZNH9CDNfWd VueW0jNH72OMxxnFHlnLYhfVB1 WPVtdU0yCq1ejWWbsM6mbT7mpB zhZQQuf6BxkCXiat6fUUOlpqFD ClxwYXIgDQpccGFyZFxsdHJwYX GayQs1LhWpVG5DH8Gpq1UxNWon uSfhUHOhx23brCHtPl7mhEQbTM R9RWHnLMEbyILxHGIKeWeqdSOs CPz7RDSjAGFqfHdcUSM0SX6gHT XeIZLjxPVoRYfkB1kjKSOuHFTm dOOjQU0YLFSqsfWPIztLLPR7My G9SjFhLsHhUTG9WnceTW4jkQAi WK6ZPDJenbTfxDLnpUNaSR4SVS KfwTDVJVG8LH0hZIs1ILqlEFRv O9AjR6RbnbSgoLFqBPLyocGit9 jdKQS9JQUzxIFiwSRtTlYnTocn KOZ8VWUeJBsfAD2OWBNjKUV4MF xalT48lVYvAX9YDLGwDQsnNMKt TZCymzI9ERAloAHjMQA2KY6jxW kfnXAflokglqV7IG4WhN== [facility] Work Phone: Performing Lab x6yehTAfFVWlsARlEsNl MDAwXG Axb6ssOKWipMWaLkCbUjImLiNd FhjhpXZoKWCyEuHyw7sxi801cP Xyq2vaVUHiFfM4mYIlKHXzmFJe B853YCPgAIupb3oaa6LhHKCmfS Geg0Z4IYDUllgljVu0zDnvF99t m1K3FwftU7dxVSPhRCGhI0XsFT 8wESCaAje2TDH6SKO5OCXiYNIj Z7HuSY0kRHFgeNOtOCv0g1wpyA zvHKXzGZY3r3xsECvikmWpEL5a ve0qfUs0d1gbrxFcSKVsZYXaqV HPLLLoI3CueYhmMl3xcPp0bMjx AqreHTA3Kuu8OH5wxu85zjv1hO rjIAUrbplqUiF9VWonVMCzlvaz SDt4HDvjPCCgsAQ0PNYkfVBwS8 VvHYylLR4lvib1IVC8XSvhCLVt XeI7SWBtwKIiXBNztWxpUFwuc8 71UTG4EbZuDN6jP2Lnh6C9cS9w lCVxBSVccTLbShAiAKLrav8byA NtGNmxp2AiTMJ1cnR4vWLziKMd FFBdVA21Zurzk1WyTvpsf9ZhD3 6otIC2LAeen6svDM3nYeB8ngEn IFunj8wxyK0xZzW6JCprPI5pJR 9cXGPqiB1dvqquKDXkCsVgroqa GZZjbVkklvRyDg0ozApdDME7XF hgY3dwiD1gGuU7RUedX0hicW2l JZf7GMbyuLA1QVTekD4vIT7wew zuv2xpIBwlYCbkRZIxcxL4pxUp KVKopKHxV9VunV2mEULyQF6zxh ski4ixKCY1UAfmPMWeILG6UlEy AXIua6Wwink6KoWpr5JfdKStBV jbJ63pb038OMFgiwNeW5jmjYXe ydcavLRbqferNGntvrB8ZFUuIS BsYWluXGYxXGZzMjJcbGFuZzEw MzNcaGljaFxmMVxkYmNoXGYxXG hjG5adGfYaDuSdNiDLzAQqrk5b yNogFGqqoDLibFFkrFP1wV1pRW UvxfOocc6iVXQaoUGQlFP9MQlb otVnR8ucqrimTOK1BPTyBBM7S3 xpZCBBdmUsIENsZXZlbGFuZCBP RIO6DCG8KOSgINLOKHMsOPM6QM V6LUNjMQPrpCJxVPMcumxuIXBw XHBsYWluXGYwXGZzMjRccGxhaW 8rGeOwByDzNmpwHF1iRZNiC3go iUHnJPHcKMLoW6zuEmLaaN4loP xmMVxjZjJcZnMyMlxsdHJjaCBM FCHgyoV4m0H4PJojvSOmrnueZS aksgHxIVlkqxvoFQPrUPxrC7iy XaCfOQAnkHviKJblg3BxYEJnZD FnVdXfNRhqFYD5l3I1FPqxcEVt atVNOtDCHT4pxCZbacqzWL5PLk xwYXJ9 [facility] Work Phone: [facility] Work Phone: Flexible sigmoidoscopy study on 01-15-2023 [facility] Gastrointestinal Endoscopy Patient Name: Leana Camejo Procedure Date: 01/15/2023 11:19 AM Date of : 1940 Admit Type: Outpatient Age: 83 Room: [place] [address] Gender: Male Note Status: Finalized Attending MD: Lisa Rodriguez MD Procedure: Colonoscopy Indications: Chronic diarrhea Providers: Lisa Rodriguez MD Patient Profile: This is an 83 year old male. Refer to note in patient chart for documentation of history and physical. Last Colonoscopy: several years ago. Referring Physician: Lisa Rodriguez MD (Referring MD) Medicines: Monitored Anesthesia Care Complications: No immediate complications. Requesting Provider: Procedure: Pre-Anesthesia Assessment: - Prior to the procedure, a History and Physical was performed, and patient medications and allergies were reviewed. The patient is competent. The risks and benefits of the procedure and the sedation options and risks were discussed with the patient. All questions were answered and informed consent was obtained. Patient identification and proposed procedure were verified by the physician, the nurse and the maintenance and repair worker in the pre-procedure area in the endoscopy suite. Mental Status Examination: alert and oriented. Airway Examination: normal oropharyngeal airway and neck mobility. Respiratory Examination: clear to auscultation. CV Examination: normal. Prophylactic Antibiotics: The patient does not require prophylactic antibiotics. Prior Anticoagulants: The patient has taken no anticoagulant or antiplatelet agents. ASA Grade Assessment: II - A patient with mild systemic disease. After reviewing the risks and benefits, the patient was deemed in satisfactory condition to undergo the procedure. The anesthesia plan was to use monitored anesthesia care (MAC). Immediately prior to administration of medications, the patient was re-assessed for adequacy to receive sedatives. The heart rate, respiratory rate, oxygen saturations, blood pressure, adequacy of pulmonary ventilation, and response to care were monitored throughout the procedure. The physical status of the patient was re-assessed after the procedure. After I obtained informed consent, the scope was passed under direct vision. Throughout the procedure, the patient's blood pressure, pulse, and oxygen saturations were monitored continuously. The Colonoscope was introduced through the anus and advanced to 7 cm into the ileum. I was present and participated during the entire procedure, including non-beasley portions, and during the administration and monitoring of Moderate Sedation. The colonoscopy was performed without difficulty. The patient tolerated the procedure well. The quality of the bowel preparation was good. The terminal ileum, ileocecal valve, appendiceal orifice, and rectum were photographed. Moderate Sedation: MAC anesthesia was administered by the anesthesia team. Findings: The perianal and digital rectal examinations were normal. Multiple small and large-mouthed diverticula were found in the entire colon. Normal mucosa was found in the entire colon. Biopsies for histology were taken with a cold forceps from the ascending colon, transverse colon and descending colon for evaluation of microscopic colitis. Internal hemorrhoids were found during retroflexion. The hemorrhoids were Grade I (internal hemorrhoids that do not prolapse). The terminal ileum appeared normal. Impression: - Diverticulosis in the entire examined colon. - Normal mucosa in the entire examined (more content not included)... PROVATION [facility] Radiology Study observation (narrative) [facility] CULTURE ANAEROBEon 9 CULTURE ANAEROBE CULTURE ANAEROBE --> Status: F No growth of anaerobes at 5 days. Normal [facility] Comment on above: Performed By: #### C XFLD, C/CAITLYN #### [facility] [address], [place] Basic Metabolic Panelon 10-3 0-2019 Anion gap [Moles/Vol] 7 Normal [facility] Comment on above: Performed By: #### B MP3 #### [facility] [address], [place] Calcium [Mass/Vol] 9.0 mg/dL Normal 8.4-10.4 [facility] Comment on above: Performed By: #### B MP3 #### [facility] [address], [place] CO2 [Moles/Vol] 25 mmol/L Normal 22-30 [facility] Comment on above: Performed By: #### B MP3 #### [facility] [address], [place] Glucose [Mass/Vol] 107 mg/dL High 70-100 [facility] Comment on above: Performed By: #### B MP3 #### [facility] [address], [place] Urea nitrogen [Mass/Vol] 25 mg/dL High 7-20 [facility] Comment on above: Performed By: #### B MP3 #### [facility] [address] [place] [address] Creatinine [Mass/Vol] 1.17 mg/dL Normal 0.52-1.25 [facility] Comment on above: Performed By: #### B MP3 #### [facility] [address], [place] GFR/1.73 sq M predicted among blacks MDRD (S/P/Bld) [Vol rate/Area] mL/min/{1.73_m2} Normal >60 [facility] Comment on above: Performed By: #### B MP3 #### [facility] [address], [place] GFR/1.73 sq M predicted among non-blacks MDRD (S/P/Bld) [Vol rate/Area] mL/min/{1.73_m2} Normal >60 [facility] Comment on above: Result Comment: Sour ce- MDRD equation with creatinine calibration to IDMS(NKDEP) eGFR not recommended for drug dose adjustment Performed By: #### B MP3 #### [facility] [address], [place] Potassium [Moles/Vol] 3.8 mmol/L Normal 3.5-5.1 [facility] Comment on above: Performed By: #### B MP3 #### [facility] [address], [place] Sodium [Moles/Vol] 138 mmol/L Normal 135-145 [facility] Comment on above: Performed By: #### B MP3 #### [facility] [address], [place] Chloride [Moles/Vol] 106 mmol/L Normal 98-107 [facility] Comment on above: Performed By: #### B MP3 #### [facility] [address], [place] Anion gap [Moles/Vol] 7 mmol/L [place], [place] Calcium [Mass/Vol] 9.0 mg/dL 8.4 - 10. 4 mg/dL [place], [place] Chloride [Moles/Vol] 106 mmol/L 98 - 10 7 mmol/L [place] CO2 [Moles/Vol] 25 mmol/L 22 - 30 mmol/L [place] Creatinine [Mass/Vol] 1.17 mg/dL 0.52 - 1.25 mg/dL [place] EGFR IF NonAfrican [place] >60.0 >60 mL/min [place], [place] Comment on above: Source- MDRD equatio n with creatinine calibration to IDMS(NKDEP) eGFR not recommended for drug dose adjustment GFR/1.73 sq M predicted among blacks MDRD (S/P/Bld) [Vol rate/Area] mL/min/{1.73_m2} >60 mL/min [place] Glucose [Mass/Vol] 107 mg/dL High 70 - 100 mg/dL [place] Interpretation and review of laboratory results Abnormal [place] Potassium [Moles/Vol] 3.8 mmol/L 3.5 - 5.1 mmol/L [place] Sodium [Moles/Vol] 138 mmol/L 135 - 145 mmol/L [place] Urea nitrogen [Mass/Vol] 25 mg/dL High 7 - 20 mg/dL [place] Test Performed by [address] [address] [place], [place] CT Aspiration Fine Needleon 07-19-2019 CT Aspiration Fine Needle Patient Name: LEANA CAMEJO CT Exam Date/Time 07/19/2019 09:16:[address] Aspiration Ordering Physician MD PEYTON, YARIEL Durán Accession Number [id number] CPT4 Codes 56206 (), 44777 () Reason For Exam ileopsoas abscess Report HISTORY: Evaluate for iliopsoas abscess Preliminary noncontrast sections are performed from just above the kidneys to the upper thighs (outside prior studies are unavailable). Calcified granulomas liver spleen. Calcific atherosclerosis with 4.3 cm abdominal aortic aneurysm. Degenerative changes spine. Diverticulosis colon. Right-sided probable bladder diverticulum. There is enlargement of the lower right iliopsoas muscle with low density in the region of the iliopsoas bursa. Under conscious sedation monitored by nurse stationed in the room during entire procedure for 30 minutes and local anesthesia an 18-gauge needle is placed into the distended right iliopsoas bursa. Approximately 12 mL of old nonclotting blood is obtained and submitted for requested tests. IMPRESSION: 1. Distended right iliopsoas bursa-aspiration yielded 12 mL nonclotting blood (this is submitted for culture and sensitivity routine). The lower right iliopsoas muscle is also seen to be enlarged 2. Generalized calcific atherosclerosis with 4.3 cm infrarenal abdominal aortic aneurysm. 3. Diverticulosis colon, probable right-sided bladder diverticulum (limited without IV contrast) , degenerative changes spine, calcified granulomas liver and spleen Report Dictated on Final Dictated: 07/19/2019 9:25 am Dictating Physician: MD QUEVEDO WILLIAM Signed Date and Time: 07/19/2019 9:30 am Signed by: MD QUEVEDO WILLIAM Transcribed Date and Time: 07/19/2019 9:25 [facility] CT GUIDED NEEDLE ASPIRATION OR INJECTIONon 07-19-2019 Patient Name: LEANA CAMEJO ---CT--- Exam Date/Time 07/19/2019 09:16:[address] Aspiration Ordering Physician MD BLAS TYLER M Accession Number [id number] CPT4 Codes 73614 (), 18757 () Reason For Exam ileopsoas abscess Report HISTORY: Evaluate for iliopsoas abscess Preliminary noncontrast sections are performed from just above the kidneys to the upper thighs (outside prior studies are unavailable). Calcified granulomas liver spleen. Calcific atherosclerosis with 4.3 cm abdominal aortic aneurysm. Degenerative changes spine. Diverticulosis colon. Right-sided probable bladder diverticulum. There is enlargement of the lower right iliopsoas muscle with low density in the region of the iliopsoas bursa. Under conscious sedation monitored by nurse stationed in the room during entire procedure for 30 minutes and local anesthesia an 18-gauge needle is placed into the distended right iliopsoas bursa. Approximately 12 mL of old nonclotting blood is obtained and submitted for requested tests. IMPRESSION: 1. Distended right iliopsoas bursa-aspiration yielded 12 mL nonclotting blood (this is submitted for culture and sensitivity routine). The lower right iliopsoas muscle is also seen to be enlarged 2. Generalized calcific atherosclerosis with 4.3 cm infrarenal abdominal aortic aneurysm. 3. Diverticulosis colon, probable right-sided bladder diverticulum (limited without IV contrast) , degenerative changes spine, calcified granulomas liver and spleen Report Dictated on --- Final --- Dictated: 07/19/2019 9:25 am Dictating Physician: MD QUEVEDO WILLIAM Signed Date and Time: 07/19/2019 9:30 am Signed by: MD QUEVEDO WILLIAM Transcribed Date and Time: 07/19/2019 9:25 [facility], [place], [place] Incoming Radiology Results From [facility] - 07/19/2019 9:31 AM EDT Patient Name: LEANA CAMEJO ---CT--- Exam Date/Time 07/19/2019 09:16:[address] Aspiration Ordering Physician MD PEYTON, YARIEL Durán Accession Number [id number] CPT4 Codes 83653 (), 48164 () Reason For Exam ileopsoas abscess Report HISTORY: Evaluate for iliopsoas abscess Preliminary noncontrast sections are performed from just above the kidneys to the upper thighs (outside prior studies are unavailable). Calcified granulomas liver spleen. Calcific atherosclerosis with 4.3 cm abdominal aortic aneurysm. Degenerative changes spine. Diverticulosis colon. Right-sided probable bladder diverticulum. There is enlargement of the lower right iliopsoas muscle with low density in the region of the iliopsoas bursa. Under conscious sedation monitored by nurse stationed in the room during entire procedure for 30 minutes and local anesthesia an 18-gauge needle is placed into the distended right iliopsoas bursa. Approximately 12 mL of old nonclotting blood is obtained and submitted for requested tests. IMPRESSION: 1. Distended right iliopsoas bursa-aspiration yielded 12 mL nonclotting blood (this is submitted for culture and sensitivity routine). The lower right iliopsoas muscle is also seen to be enlarged 2. Generalized calcific atherosclerosis with 4.3 cm infrarenal abdominal aortic aneurysm. 3. Diverticulosis colon, probable right-sided bladder diverticulum (limited without IV contrast) , degenerative changes spine, calcified granulomas liver and spleen Report Dictated on --- Final --- Dictated: 07/19/2019 9:25 am Dictating Physician: MD QUEVEDO WILLIAM Signed Date and Time: 07/19/2019 9:30 am Signed by: MD QUEVEDO WILLIAM Transcribed Date and Time: 07/19/2019 9:25 [facility], [place] CULTURE AND STAIN - FLUIDon 07-19-2019 CULTURE AND STAIN - FLUID CULTURE & STAIN - FLUID --> Status: F No growth at 3 days. STAIN GRAM --> Status: F Many polymorphonuclear cells/lpf. No organisms seen. No organisms seen. Normal [facility] Comment on above: Performed By: #### C XFLD, C/CAITLYN #### [facility] [address] [place] [address] .GFRon 06-16-2019 GFR 69 ml/min/1.73sqm Normal [facility] ([place]) Comment on above: Result Comment: GFR Population mean for , Non- Americans Ages 20-29 = 116 mL/min/1.73 sq.m. Ages 30-39 = 107 mL/min/1.73 sq.m. Ages 40-49 = 99 mL/min/1.73 sq.m. Ages 50-59 = 93 mL/min/1.73 sq.m. Ages 60-69 = 85 mL/min/1.73 sq.m. Ages 70+ = 75 mL/min/1.73 sq.m. Chronic Kidney Disease: Less than 60 mL/min/1.73 square meters End Stage Renal Disease: Less than 15 mL/min/1.73 square meters Performed By: #### C RE, GFR #### [facility] [address] [place] [address] GFR Non- 57 ml/min/1.73sqm Normal [facility] ([place]) Comment on above: Result Comment: GFR Population mean for , Non- Americans Ages 20-29 = 116 mL/min/1.73 sq.m. Ages 30-39 = 107 mL/min/1.73 sq.m. Ages 40-49 = 99 mL/min/1.73 sq.m. Ages 50-59 = 93 mL/min/1.73 sq.m. Ages 60-69 = 85 mL/min/1.73 sq.m. Ages 70+ = 75 mL/min/1.73 sq.m. Chronic Kidney Disease: Less than 60 mL/min/1.73 square meters End Stage Renal Disease: Less than 15 mL/min/1.73 square meters Performed By: #### C RE, GFR #### [place] [id number] CREon 06-16-2019 Creatinine [Mass/Vol] 1.23 mg/dL Normal 0.70-1.30 [facility] ([place]) Comment on above: Performed By: #### C RE, GFR #### [place] [address] CNOVon 01-14-2018 CNOV Office Visit (AGCARDWST) LEANA CAMEJO ([id number]) 1940 [facility] Time Provider Department01/14/18 10:30 AM MOODY MONTESWSYael During your visit today, we recorded the following information about you: Pulse Blood pressure Weight 76/minute 173/83 89.2 kgMoody Montes MD 01/14/2018 5:45 PM SignedPERTINENT CARDIAC HISTORYHTNHL - statin intolerantCHF - diastolicVPDsCRFRSV infectionAllergy to lisinopril - rashADHERENCE TO GUIDELINESACE-I or ARB for HF with prior LVEFANDlt;40 (NQF 0081) - N/AASA or Plavix for ASHD (NQF 0067) - N/ABeta adrienne for ASHD with prior NV or prior LVEFANDlt;40 (NQ 0070) - N/ABeta adrienne for HF with prior LVEFANDlt;40 (NQ 0083) - N/AACE-I or ARB for ASHD with DM or prior LVEFANDlt;40 (NQ 0066) - N/AStatin therapy for ASHD or FHL or DM - intolerantBMI documented and plan if ANDgt;25 (NQ 0421) - lifestyle recommendation formTobacco use screening and referral (NQ 0028) - lifestyle recommendation formRecommendation for whole food, plant based diet - lifestyle recommendation formCLINICAL IMPRESSION/PLAN:Leana Camejo has mild worsening of pedal edema, although his lungs actuallysound better than they did last time. He is unwilling to increase Lasix becauseof stress incontinence. I suggested that he decrease amlodipine to 5 milligramsdaily and we'll start carvedilol at 6.25 milligrams twice daily. I asked him tocheck vital signs daily and report back next week. I suggested he wear supportstockings.I will see him as originally scheduled.Written and verbal health teaching given to patient, patient verbalizesunderstanding and agrees with treatment plan.DIAGNOSIS FOR VISIT:HypertensionEdemaHIS TORY OF PRESENT ILLNESSSealli Camejo returns to the office today for follow-up. He had contacted usyesterday stating his blood pressure was up slightly and his heart rates havebeen higher. He's had slight worsening of his pedal edema.His recent surgery went well. There were no complications. He's had no chestdiscomfort. He denies orthopnea. He's had slight increase in edema since hissurgery. He's had no syncope, palpitations, TIAs, amaurosis or claudication.ALLERGIES:ALL ERGIESAllergen Reactions- Clonidine- Crestor [Rosuvastat*- Lipitor [Atorvastat*- Lisinopril Rash- Statins [Statins-Hm*CURRENT OUTPATIENT MEDICATIONS:furosemide (LASIX) 40 mg tablet Take 1 tablet by mouth once daily.amLODIPine (NORVASC) 10 mg tablet Take 1 tablet by mouth once daily.doxazosin (CARDURA) 4 mg tablet TAKE TWO TABLETS BY MOUTH ONCE DAILY AT BEDTIMEGRAPE SEED EXTRACT (GRAPE SEED ORAL) Take by mouth.BOSWELLIA ROLAND EXTRACT (BOSWELLIA ROLAND XT, BULK,) 100 % powdCoenzyme Q10 (CO Q-10) 200 mg cap Take 1 capsule by mouth once daily.vitamin b complex (B COMPLETE) tab Take 1 tablet by mouth once daily.mr-0-dmg-epa-D3-B12- FA-B-6-phy (ANIMI-3 WITH VITAMIN D) 500-1,722-770yb-corz-mcg cap Take 1,000 Units by mouth twice daily.Fish,Saf,Flx,Brg Oils-O3,6,9#2 [phone] mg cap Take 6 capsules by mouthonce daily.Flaxseed Oil 1,000 mg ORAL Cap Take by mouth.gabapentin (NEURONTIN) 300 mg capsule Take 1 capsule by mouth twice daily.Ipratropium Cruger (ATROVENT) 0.03 % nasal spray Use 2 Sprays in the noseevery 12 hours.PHYSICAL EXAMINATION:VITAL SIGNS: BP 173/83 Pulse 76 Wt 196 lb 9.6 oz (89.2kg)Chest: Clear to percussion and auscultation. Trachea is midline. Air entry isequal. Cardiac: Regular rhythm. S1 and S2 are normal. PMI is nondisplaced.There is a soft systolic ejection murmur. Carotids are brisk without bruits.JVP is less than 10 cm. Abdomen: Soft and nontender. There are no pulsatilemasses or bruits. No liver enlargement. Bowel sounds are active.Extremities: 2 plus ankle edema. Pulses are intact and symmetrical.EKG shows sinus rhythm with occasional ventricular premature and is unchangedfrom 12/17/69.Recent labs were reviewed. Renal function is stableElectronically Signed:Leigha Duckowrth 2017 10:43 [facility]: Diogenes Preciado MD 01/14/2018 10:44 AM SignedDecrease amlodipine to 5 mg daily.Start carvedilol 6.25 mg twice a dayCall next week with list of your vital signsIf increased HR continues, we will do a heart monitorReferring Provider: SELF [200]Allergies As of Date: 01/14/2018 Noted Allergy ReactionCLONIDINE 07/21/2005CRESTOR (ROSUVASTATIN CALCIUM) 07/21/2005LIPITOR (ATORVASTATIN CALCIUM) 07/21/2005LISINOPRIL 02/10/2017 2 - RashSTATINS ([id number] REDUCTAS*07/15/2006Date Reviewed: 09/09/2017Reviewed by: Benita Garay - Fully AssessedReason for Visit: Established Patient [175] Cmt: follow-upPrimary Visit Diagnosis:Hypertension, essential [I10] Other Visit Diagnosis:Chronic diastolic CHF (congestive heart failure) (HCC) [I50.32]Order(s):carvedilo l (COREG) 6.25 mg tabletTake 1 tablet by mouth twice daily with meals.Disp: 60 tabletRfl: 3 amLODIPine (NORVASC) 5 mg tabletTake 1 tablet by mouth once daily.Disp: 30 tabletRfl: 11Prescriptions as of 01/14/2018 Sig: AMLODIPINE 5 MG TABLET Take 1 tablet by mouth once d* FUROSEMIDE 40 MG TABLET Take 1 tablet by mouth once d* DOXAZOSIN 4 MG TABLET TAKE TWO TABLETS BY MOUTH ONC* GRAPE SEED ORAL Take by mouth. BOSWELLIA ROLAND EXTRACT (BU* COENZYME Q10 200 MG CAPSULE Take 1 capsule by mouth once * VITAMIN B COMPLEX TABLET Take 1 tablet by mouth once d* VXNSR-4-VSC-RAA-F2-S84-FA- B6-* Take 1,000 Units by mouth twi* FISH,SAFFLWR,FLAX,BORAG OILS-* Take 6 capsules by mouth once* FLAXSEED OIL 1,000 MG CAPSULE Take by mouth. CARVEDILOL 6.25 MG TABLET Take 1 tablet by mouth twice * GABAPENTIN 300 MG CAPSULE Take 1 capsule by mouth twice* IPRATROPIUM BROMIDE 0.03 % NA* Use 2 Sprays in the nose ever*Medication notes this encounter GABAPENTIN 300 MG CAPSULE >> Jorge Arviuz RN 01/14/2018 10:31 AM >> JORGE ARVIZU RN WedJan 14, 2018 10:31 AM no longer takingProblem List As Of Date 01/14/2018 Noted Resolved BENIGN HYPERTENSION [I10] INVALID FOR* Priority: A HYPERLIPIDEMIA NEC/NOS [E78.5] INVALID FOR* Priority: A Enlarged prostate with urinary obstruction [N40*INVALID FOR* Priority: B More... Impotence of organic origin [N52.9] INVALID FOR* Priority: C Aneurysm of abdominal aorta [I71.4] INVALID FOR*01/12/2013 Vitiligo [L80] INVALID FOR* Priority: D CKD (chronic kidney disease) stage 3, GFR 30-59*INVALID FOR* Priority: A Well adult exam [Z00.00] INVALID FOR* Priority: E More... 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 Allergic rhinitis [J30.9] INVALID FOR* Priority: B DDD (degenerative disc disease), lumbar [M51.36]INVALID FOR* Lumbar radiculopathy [M54.16] INVALID FOR* Abdominal aortic aneurysm (AAA) without rupture*INVALID FOR* Priority: A More... Other instructions from your clinician: Decrease amlodipine to 5 mg daily. Start carvedilol 6.25 mg twice a day Call next week with list of your vital signs If increased HR continues, we will do a heart monitorPrescriptions ordered this encounter Disp Refills Start End AMLODIPINE 10 MG TABLET 90 t* 3 01/14/2018 01/14/2018 Class: Med Update Route: ORAL Sig: Take 0.5 tablets by mouth once daily. CARVEDILOL 6.25 MG TABLET 60 t* 3 01/14/2018 Route: ORAL Sig: Take 1 tablet by mouth twice daily with meals. AMLODIPINE 5 MG TABLET 30 t* 11 01/14/2018 Route: ORAL Sig: Take 1 tablet by mouth once daily.Medications Discontinued During This Encounter amLODIPine (NORVASC) 10 mg tablet 90 t* 3 04/22/2017 01/14/2018 Route: ORAL Sig: Take 1 tablet by mouth once daily. Disc: Reason for discontinue is not on file. amLODIPine (NORVASC) 10 mg tablet 90 t* 3 01/14/2018 01/14/2018 Class: Med Update Route: ORAL Sig: Take 0.5 tablets by mouth once daily. Disc: Reason for discontinue is not on file. Status:Closed by MOODY MONTES MD on 01/14/18 [facility] PROGRESSon 01-14-2018 PROGRESS HNO ID: [id number] thor: Moody Yuan: (none)Author Type: PhysicianType: Progress NotesFiled: 01/14/2018 5:45 PMNote Text:PERTINENT CARDIAC HISTORYHTNHL - statin intolerantCHF - diastolicVPDsCRFRSV infectionAllergy to lisinopril - rashADHERENCE TO GUIDELINESACE-I or ARB for HF with prior LVEF<40 (NQF 0081) - N/AASA or Plavix for ASHD (NQF 0067) - N/ABeta adrienne for ASHD with prior NV or prior LVEF<40 (NQF 0070) - N/ABeta adrienne for HF with prior LVEF<40 (NQF 0083) - N/AACE-I or ARB for ASHD with DM or prior LVEF<40 (NQF 0066) - N/AStatin therapy for ASHD or FHL or DM - intolerantBMI documented and plan if >25 (NQF 0421) - lifestyle recommendation formTobacco use screening and referral (NQF 0028) - lifestyle recommendationformRecommen dation for whole food, plant based diet - lifestyle recommendationformCLINICAL IMPRESSION/PLAN:Leana Camejo has mild worsening of pedal edema, although his lungsactually sound better than they did last time. He is unwilling to increaseLasix because of stress incontinence. I suggested that he decreaseamlodipine to 5 milligrams daily and we'll start carvedilol at 6.25milligrams twice daily. I asked him to check vital signs daily and reportback next week. I suggested he wear support stockings.I will see him as originally scheduled.Written and verbal health teaching given to patient, patient verbalizesunderstanding and agrees with treatment plan.DIAGNOSIS FOR VISIT:HypertensionEdemaHIS TORY OF PRESENT ILLNESSSealli Camejo returns to the office today for follow-up. He had contactedus yesterday stating his blood pressure was up slightly and his heartrates have been higher. He's had slight worsening of his pedal edema.His recent surgery went well. There were no complications. He's had nochest discomfort. He denies orthopnea. He's had slight increase in edemasince his surgery. He's had no syncope, palpitations, TIAs, amaurosis orclaudication.ALLERGIES:A LLERGIESAllergen Reactions- Clonidine- Crestor [Rosuvastat*- Lipitor [Atorvastat*- Lisinopril Rash- Statins [Statins-Hm*CURRENT OUTPATIENT MEDICATIONS:furosemide (LASIX) 40 mg tablet Take 1 tablet by mouth once daily.amLODIPine (NORVASC) 10 mg tablet Take 1 tablet by mouth once daily.doxazosin (CARDURA) 4 mg tablet TAKE TWO TABLETS BY MOUTH ONCE DAILY ATBEDTIMEGRAPE SEED EXTRACT (GRAPE SEED ORAL) Take by mouth.BOSWELLIA ROLAND EXTRACT (BOSWELLIA ROLAND XT, BULK,) 100 % powdCoenzyme Q10 (CO Q-10) 200 mg cap Take 1 capsule by mouth once daily.vitamin b complex (B COMPLETE) tab Take 1 tablet by mouth once daily.vx-5-ynf-epa-D3-B12- FA-B-6-phy (ANIMI-3 WITH VITAMIN D) 500-1,811-620do-qosv-mcg cap Take 1,000 Units by mouth twice daily.Fish,Saf,Flx,Brg Oils-O3,6,9#2 [id number] mg cap Take 6 capsules bymouth once daily.Flaxseed Oil 1,000 mg ORAL Cap Take by mouth.gabapentin (NEURONTIN) 300 mg capsule Take 1 capsule by mouth twice daily.Ipratropium Cruger (ATROVENT) 0.03 % nasal spray Use 2 Sprays in the noseevery 12 hours.PHYSICAL EXAMINATION:VITAL SIGNS: BP 173/83 Pulse 76 Wt 196 lb 9.6 oz (89.2kg)Chest: Clear to percussion and auscultation. Trachea is midline. Airentry is equal. Cardiac: Regular rhythm. S1 and S2 are normal. PMI isnondisplaced. There is a soft systolic ejection murmur. Carotids arebrisk without bruits. JVP is less than 10 cm. Abdomen: Soft andnontender. There are no pulsatile masses or bruits. No liverenlargement. Bowel sounds are active. Extremities: 2 plus ankle edema.Pulses are intact and symmetrical.EKG shows sinus rhythm with occasional ventricular premature and isunchanged from 12/17/69.Recent labs were reviewed. Renal function is stableElectronically Signed:Leigha Duckworth 2017 10:43 [facility]: [facility] Hope [facility] Office Visit (AGCARDWST) LEANA CAMEJO ([id number]) 1940 MDate Time Provider Nukziunuyr20/21/17 8:30 AM MOODY MONTES AGCARDWST During your visit today, we recorded the following information about you: Pulse Blood pressure Weight Height 62/minute 130/72 88.7 kg 1.74 Lorena Montes MD 09/10/2017 6:07 PM SignedPERTINENT CARDIAC HISTORYHTNHL - statin intolerantCHF - diastolicVPDsCRFRSV infectionAllergy to lisinopril - rashADHERENCE TO GUIDELINESACE-I or ARB for HF with prior LVEFANDlt;40 (NQF 0081) - N/AASA or Plavix for ASHD (NQF 0067) - N/ABeta adrienne for ASHD with prior NV or prior LVEFANDlt;40 (NQF 0070) - N/ABeta adrienne for HF with prior LVEFANDlt;40 (NQF 0083) - N/AACE-I or ARB for ASHD with DM or prior LVEFANDlt;40 (NQF 0066) - N/AStatin therapy for ASHD or FHL or DM - intolerantBMI documented and plan if ANDgt;25 (NQF 0421) - lifestyle recommendation formTobacco use screening and referral (NQF 0028) - lifestyle recommendation formRecommendation for whole food, plant based diet - lifestyle recommendation formCLINICAL IMPRESSION/PLAN:Princetonshilpa Camejo is doing well. He has well compensated diastolic heart failure.His lung findings are related to his interstitial lung disease.There is no evidence of ischemia. He has no evidence of unstable coronarydisease, arrhythmia or decompensated heart failure. There is nocontraindication to surgery as planned. Risk of perioperative cardiaccomplications is low for the procedure anticipated. No further diagnosticstudies are recommended prior to surgery.I will see him in 6 months or as needed. If there is increased chest pain orshortness of breath, he has been advised to contact me.Written and verbal health teaching given to patient, patient verbalizesunderstanding and agrees with treatment plan.This note was generated using [place] voice recognition system, and there may besome incorrect words, spellings, and punctuation that were not noted inchecking the note before saving.DIAGNOSIS FOR VISIT:Preoperative cardiac risk assessmentDiastolic heart failureHISTORY OF PRESENT ILLNESSLeana Camejo returns for preoperative risk assessment and follow-up of hisdiastolic heart failure and hypertension.He reports stable exercise tolerance . He's had no recent chest discomfort.He's had no orthopnea or edema. He denies syncope, palpitations, TIAs,amaurosis and claudication.In anticipation of possible surgery, he underwent stress testing 2 weeks ago.ALLERGIES:ALLERGIESAll ergen Reactions- Clonidine- Crestor [Rosuvastat*- Lipitor [Atorvastat*- Lisinopril Rash- Statins [Statins-Hm*CURRENT OUTPATIENT MEDICATIONS:furosemide (LASIX) 40 mg tablet Take 1 tablet by mouth once daily.gabapentin (NEURONTIN) 300 mg capsule Take 1 capsule by mouth twice daily.amLODIPine (NORVASC) 10 mg tablet Take 1 tablet by mouth once daily.doxazosin (CARDURA) 4 mg tablet TAKE TWO TABLETS BY MOUTH ONCE DAILY AT BEDTIMEGRAPE SEED EXTRACT (GRAPE SEED ORAL) Take by mouth.BOSWELLIA ROLAND EXTRACT (BOSWELLIA ROLAND XT, BULK,) 100 % powdCoenzyme Q10 (CO Q-10) 200 mg cap Take 1 capsule by mouth once daily.vitamin b complex (B COMPLETE) tab Take 1 tablet by mouth once daily.aw-9-bwy-epa-D3-B12- FA-B-6-phy (ANIMI-3 WITH VITAMIN D) 500-1,190-194te-xkwu-mcg cap Take 1,000 Units by mouth twice daily.Fish,Saf,Flx,Brg Oils-O3,6,9#2 102-551-325-50 mg cap Take 6 capsules by mouthonce daily.Flaxseed Oil 1,000 mg ORAL Cap Take by mouth.Ipratropium Cruger (ATROVENT) 0.03 % nasal spray Use 2 Sprays in the noseevery 12 hours.PAST MEDICAL HISTORYDiagnosis Date- Abdominal aortic aneurysm (AAA) without rupture (HCC) 08/26/201708/2017: 3.7 cm- Anemia- Chronic kidney disease, unspecified Chronic Kidney Disease NOS I- Diarrhea- Diverticulosis of colon (without mention of hemorrhage)- Elevated serum creatinine- Internal hemorrhoids without mention of complication- Mixed hyperlipidemia Hyperlipidemia- Unspecified essential hypertension Essential hypertensionPAST SURGICAL HISTORYProcedure Laterality Date- BLEPHAROPLASTY, UPPER EYELID 2012- COLONOSCOP W/ OR W/O [facility] SPEC 03/18/01 anemia- COLONOSCOP W/ OR W/O [facility] SPEC 05/13/10 repeat 10 yrs- EGD W/O OR W/BRUSH/WASH 03/18/01 anemia- FREEING BOWEL ADHESION,ENTEROLYSIS 07-29-15- LAP INC HERNIA REPAIR RECUR 07-29-15- LAP REPAIR INTIAL INGUINAL HERNIA 07-29-15- PAST SURGICAL HISTORY OF 09/09/2015 left total knee arthroplasty- REPAIR UMBILICAL HERNIA age 40 Dr. Henry- STRESS TEST 09/03/2017 normal- TOTAL HIP REPLACEMENT 08/02/2006 Hip replacement, total, RightFAMILY HISTORYProblem Relation Age of Onset- Cancer Mother oral- Cancer Father Lymphnode, Lung, Liver- brain tumor [OTHER] OtherSocial History Marital status: Spouse name: Years of education: Number of children:Social History Main Topics Smoking status: Never Smoker Smokeless status: Never Used Alcohol use: No Drug use: NoREVIEW OF SYSTEMS: General: No chills, fever, weight loss, night sweats.Respiratory: No productive cough. Cardiac: As noted above. GI: No melena.: No dysuria. Musculoskeletal: No myalgias.PHYSICAL EXAMINATION: S/he is alert and in no distress.VITAL SIGNS: BP 130/72 Pulse 62 Ht 5' 8.5ANDquot; (1.74m) Wt 195 lb 8 oz(88.7kg) BMI 29.29 kg/(m2).SHEENT: Skin is warm and dry. No xanthelasmas appreciated. Pharynx isbenign. There is no oral cyanosis. Neck: supple. No adenopathy or thyroidenlargement. Chest: There are scattered Velcro type rales. Air entry isequal. There is no chest wall tenderness. Cardiac: Regular rhythm. S1 and S2are normal. PMI is nondisplaced. There is a soft systolic ejection murmur.No click is heard. Carotids are brisk without bruits. JVP is less than 10 cm. Abdomen: Soft and nontender. There are no pulsatile masses or bruits. Noliver enlargement. Bowel sounds are active. Extremities: Trace edema.Pulses are intact and symmetrical. No clubbing or cyanosis. No femoralbruits. Neurologic: Grossly normal motor and sensory. S/he is alert andoriented x4.Recent stress test showed no ischemia. Ejection fraction was 60%.Electronically Signed:ARIADNA Duckworthecekael 2016 8:54 [facility]:Diogenes Preciado MD 09/09/2017 8:54 AM SignedLIFESTYLE CHANGEA healthy lifestyle is the most important component of your overall treatmentplan. Please give serious thought to the following areas and commit to makinglong term changes.EAT A WHOLE FOOD, PLANT BASED DIETThe nutrition your body gets is more important than the medicine you take.What matters most is the overall way you eat. We encourage you to minimize theuse of animal products (which include dairy and all meats except fatty fish)and use whole, unprocessed plant foods to provide your protein, vitamins andother nutrients. We have a lot of information to share with you on this topic. We also hold Shared Medical Appointments, where you can come visit with in the company of other patients and spend over an hour talking aboutthe challenges of changing the way you eat. This is not a ANDquot;dietANDquot;.It is a way of life that you will keep with you.EXERCISE REGULARLYIt is not important to spend hours in the gym, lifting weights and perspiringheavily. A total of 2-3 hours per week of aerobic (causing you to bemoderately short of breath) exercise is sufficient to improve your health.Talk to us before you begin a new exercise program, if you have heart diseaseor experience shortness of breath or chest pain.REDUCE STRESSChronic emotional and physical stress leads to disease. Ways of reducingstress include meditation, visualization, prayer, yoga and other forms ofrelaxation therapy. Consistency is the beasley. Find a technique that works foryou and do it every day.CULTIVATE RELATIONSHIPSLoneliness and isolation have a major negative impact on health. Seek outothers who can love, care for and nurture you. Avoid hurtful relationships.MAINTAIN IDEAL BODY WEIGHTThe best way to do this is to do all the things above. Our bodies naturallyfind the right weight if we keep moving and feed ourselves the right food. Ifyour BMI is greater than 25, we strongly recommend a referral to a weightmanagement program. Please speak to us or your family physician aboutavailable programs.AVOID NICOTINE IN ALL FORMSThis includes all tobacco products, whether chewed, smoked, vaped, or rubbed onthe skin. Smoking cessation programs, which can make use of tobaccosubstitutes, medications to suppress cravings and behavior management, areavailable. Please contact your family physician about programs in your area.Referring Provider: GAVIN HOPE [[id number]]Allergies As of Date: 09/09/2017 Noted Allergy ReactionCLONIDINE 07/21/2005CRESTOR (ROSUVASTATIN CALCIUM) 07/21/2005LIPITOR (ATORVASTATIN CALCIUM) 07/21/2005LISINOPRIL 02/10/2017 2 - RashSTATINS (FKWVHIF-GCO-ASA REDUCTAS*07/15/2006Date Reviewed: 09/09/2017Reviewed by: Benita Garay - Fully AssessedReason for Visit: Follow Up [171] Cmt: Clearance for back surgeryPrimary Visit Diagnosis:Preop cardiovascular exam [Z01.810] Other Visit Diagnosis:Chronic diastolic congestive heart failure (HCC) [I50.32]Prescriptions as of 09/09/2017 Sig: FUROSEMIDE 40 MG TABLET Take 1 tablet by mouth once d* GABAPENTIN 300 MG CAPSULE Take 1 capsule by mouth twice* AMLODIPINE 10 MG TABLET Take 1 tablet by mouth once d* DOXAZOSIN 4 MG TABLET TAKE TWO TABLETS BY MOUTH ONC* GRAPE SEED ORAL Take by mouth. BOSWELLIA ROLAND EXTRACT (BU* COENZYME Q10 200 MG CAPSULE Take 1 capsule by mouth once * VITAMIN B COMPLEX TABLET Take 1 tablet by mouth once d* PNUBD-4-WAN-KVW-E1-M49-FA- B6-* Take 1,000 Units by mouth twi* FISH,SAFFLWR,FLAX,BORAG OILS-* Take 6 capsules by mouth once* FLAXSEED OIL 1,000 MG CAPSULE Take by mouth. IPRATROPIUM BROMIDE 0.03 % NA* Use 2 Sprays in the nose ever*Problem List As Of Date 09/09/2017 Noted Resolved BENIGN HYPERTENSION [I10] INVALID FOR* Priority: A HYPERLIPIDEMIA NEC/NOS [E78.5] INVALID FOR* Priority: A Enlarged prostate with urinary obstruction [N40*INVALID FOR* Priority: B More... Impotence of organic origin [N52.9] INVALID FOR* Priority: C Aneurysm of abdominal aorta [I71.4] INVALID FOR*01/12/2013 Vitiligo [L80] INVALID FOR* Priority: D CKD (chronic kidney disease) stage 3, GFR 30-59*INVALID FOR* Priority: A Well adult exam [Z00.00] INVALID FOR* Priority: E More... 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 Allergic rhinitis [J30.9] INVALID FOR* Priority: B DDD (degenerative disc disease), lumbar [M51.36]INVALID FOR* Lumbar radiculopathy [M54.16] INVALID FOR* Abdominal aortic aneurysm (AAA) without rupture*INVALID FOR* Priority: A More... Other instructions from your clinician: LIFESTYLE CHANGE A healthy lifestyle is the most important component of your overall treatment plan. Please give serious thought to the following areas and commit to making lobsterman changes. EAT A WHOLE FOOD, PLANT BASED DIET The nutrition your body gets is more important than the medicine you take. What matters most is the overall way you eat. We encourage you to minimize the use of animal products (which include dairy and all meats except fatty fish) and use whole, unprocessed plant foods to provide your protein, vitamins and other nutrients. We have a lot of information to share with you on this topic. We also hold Shared Medical Appointments, where you can come visit with Dr. Montes in the company of other patients and spend over an hour talking about the challenges of changing the way you eat. This is not a diet. It is a way of life that you will keep with you. EXERCISE REGULARLY It is not important to spend hours in the gym, lifting weights and perspiring heavily. A total of 2-3 hours per week of aerobic (causing you to be moderately short of breath) exercise is sufficient to improve your health. Talk to us before you begin a new exercise program, if you have heart disease or experience shortness of breath or chest pain. REDUCE STRESS Chronic emotional and physical stress leads to disease. Ways of reducing stress include meditation, visualization, prayer, yoga and other forms of relaxation therapy. Consistency is the beasley. Find a technique that works for you and do it every day. CULTIVATE RELATIONSHIPS Loneliness and isolation have a major negative impact on health. Seek out others who can love, care for and nurture you. Avoid hurtful relationships. MAINTAIN IDEAL BODY WEIGHT The best way to do this is to do all the things above. Our bodies naturally find the right weight if we keep moving and feed ourselves the right food. If your BMI is greater than 25, we strongly recommend a referral to a weight management program. Please speak to us or your family physician about available programs. AVOID NICOTINE IN ALL FORMS This includes all tobacco products, whether chewed, smoked, vaped, or rubbed on the skin. Smoking cessation programs, which can make use of tobacco substitutes, medications to suppress cravings and behavior management, are available. Please contact your family physician about programs in your area.Follow-up and Disposition History RecordedEncounter Number: [id number] Status:Closed by MOODY MONTES MD on 09/10/17 [facility] PROGRESSon 09-09-2017 PROGRESS HNO ID: [id number] thor: Moody Yuan: (none)Author Type: PhysicianType: Progress NotesFiled: 09/10/2017 6:07 PMNote Text:PERTINENT CARDIAC HISTORYHTNHL - statin intolerantCHF - diastolicVPDsCRFRSV infectionAllergy to lisinopril - rashADHERENCE TO GUIDELINESACE-I or ARB for HF with prior LVEF<40 (NQF 0081) - N/AASA or Plavix for ASHD (NQF 0067) - N/ABeta adrienne for ASHD with prior NV or prior LVEF<40 (NQF 0070) - N/ABeta adrienne for HF with prior LVEF<40 (NQF 0083) - N/AACE-I or ARB for ASHD with DM or prior LVEF<40 (NQ 0066) - N/AStatin therapy for ASHD or FHL or DM - intolerantBMI documented and plan if >25 (NQF 0421) - lifestyle recommendation formTobacco use screening and referral (NQ 0028) - lifestyle recommendationformRecommen dation for whole food, plant based diet - lifestyle recommendationformCLINICAL IMPRESSION/PLAN:Leana Camejo is doing well. He has well compensated diastolic heartfailure. His lung findings are related to his interstitial lung disease.There is no evidence of ischemia. He has no evidence of unstable coronarydisease, arrhythmia or decompensated heart failure. There is nocontraindication to surgery as planned. Risk of perioperative cardiaccomplications is low for the procedure anticipated. No further diagnosticstudies are recommended prior to surgery.I will see him in 6 months or as needed. If there is increased chest painor shortness of breath, he has been advised to contact me.Written and verbal health teaching given to patient, patient verbalizesunderstanding and agrees with treatment plan.This note was generated using [place] voice recognition system, and theremay be some incorrect words, spellings, and punctuation that were notnoted in checking the note before saving.DIAGNOSIS FOR VISIT:Preoperative cardiac risk assessmentDiastolic heart failureHISTORY OF PRESENT ILLNESSSealli Camejo returns for preoperative risk assessment and follow-up ofhis diastolic heart failure and hypertension.He reports stable exercise tolerance . He's had no recent chestdiscomfort. He's had no orthopnea or edema. He denies syncope,palpitations, TIAs, amaurosis and claudication.In anticipation of possible surgery, he underwent stress testing 2 weeksago.ALLERGIES:ALLERGI ESAllergen Reactions- Clonidine- Crestor [Rosuvastat*- Lipitor [Atorvastat*- Lisinopril Rash- Statins [Statins-Hm*CURRENT OUTPATIENT MEDICATIONS:furosemide (LASIX) 40 mg tablet Take 1 tablet by mouth once daily.gabapentin (NEURONTIN) 300 mg capsule Take 1 capsule by mouth twice daily.amLODIPine (NORVASC) 10 mg tablet Take 1 tablet by mouth once daily.doxazosin (CARDURA) 4 mg tablet TAKE TWO TABLETS BY MOUTH ONCE DAILY ATWINDOM AREA [facility] EXTRACT (GRAPE SEED ORAL) Take by mouth.BOSWELLIA ROLAND EXTRACT (BOSWELLIA ROLAND XT, BULK,) 100 % powdCoenzyme Q10 (CO Q-10) 200 mg cap Take 1 capsule by mouth once daily.vitamin b complex (B COMPLETE) tab Take 1 tablet by mouth once daily.dd-3-igt-epa-D3-B12- FA-B-6-phy (ANIMI-3 WITH VITAMIN D) 500-1,211-944lp-hqbn-mcg cap Take 1,000 Units by mouth twice daily.Fish,Saf,Flx,Brg Oils-O3,6,9#2 [id number] mg cap Take 6 capsules bymouth once daily.Flaxseed Oil 1,000 mg ORAL Cap Take by mouth.Ipratropium Cruger (ATROVENT) 0.03 % nasal spray Use 2 Sprays in the noseevery 12 hours.PAST MEDICAL HISTORYDiagnosis Date- Abdominal aortic aneurysm (AAA) without rupture (HCC) 08/26/201708/2017: 3.7 cm- Anemia- Chronic kidney disease, unspecified Chronic Kidney Disease NOS I- Diarrhea- Diverticulosis of colon (without mention of hemorrhage)- Elevated serum creatinine- Internal hemorrhoids without mention of complication- Mixed hyperlipidemia Hyperlipidemia- Unspecified essential hypertension Essential hypertensionPAST SURGICAL HISTORYProcedure Laterality Date- BLEPHAROPLASTY, UPPER EYELID 2012- COLONOSCOP W/ OR W/O [facility] SPEC 03/18/01 anemia- COLONOSCOP W/ OR W/O [facility] SPEC 05/13/10 repeat 10 yrs- EGD W/O OR W/BRUSH/WASH 03/18/01 anemia- FREEING BOWEL ADHESION,ENTEROLYSIS 07-29-15- LAP INC HERNIA REPAIR RECUR 07-29-15- LAP REPAIR INTIAL INGUINAL HERNIA 07-29-15- PAST SURGICAL HISTORY OF 09/09/2015 left total knee arthroplasty- REPAIR UMBILICAL HERNIA age 40 Dr. Henry- STRESS TEST 09/03/2017 normal- TOTAL HIP REPLACEMENT 08/02/2006 Hip replacement, total, RightFAMILY HISTORYProblem Relation Age of Onset- Cancer Mother oral- Cancer Father Lymphnode, Lung, Liver- brain tumor [OTHER] OtherSocial History Marital status: Spouse name: Years of education: Number of children:Social History Main Topics Smoking status: Never Smoker Smokeless status: Never Used Alcohol use: No Drug use: NoREVIEW OF SYSTEMS: General: No chills, fever, weight loss, night sweats. Respiratory: No productive cough. Cardiac: As noted above. GI: [place]el[place]. : No dysuria. Musculoskeletal: No myalgias.PHYSICAL EXAMINATION: S/he is alert and in no distress.VITAL SIGNS: BP 130/72 Pulse 62 Ht 5' 8.5 (1.74m) Wt 195 lb 8 oz(88.7kg) BMI 29.29 kg/(m2).SHEENT: Skin is warm and dry. No xanthelasmas appreciated. Pharynx isbenign. There is no oral cyanosis. Neck: supple. No adenopathy orthyroid enlargement. Chest: There are scattered Velcro type rales. Airentry is equal. There is no chest wall tenderness. Cardiac: Regularrhythm. S1 and S2 are normal. PMI is nondisplaced. There is a softsystolic ejection murmur. No click is heard. Carotids are brisk withoutbruits. JVP is less than 10 cm. Abdomen: Soft and nontender. There areno pulsatile masses or bruits. No liver enlargement. Bowel sounds areactive. Extremities: Trace edema. Pulses are intact and symmetrical.No clubbing or cyanosis. No femoral bruits. Neurologic: Grossly normalmotor and sensory. S/he is alert and oriented x4.Recent stress test showed no ischemia. Ejection fraction was 60%.Electronically Signed:Rach Duckworth 2016 8:54 [facility]:Gavin Hope MD [facility] OBSOLETEon 07-22-2017 OBSOLETE Refill (AGCARDWST) LEANA CAMEJO ([id number]) [facility] Aupoxhwhsd21/2/17 MOODY MONTES During your visit today, we recorded the following information about you:Frank Arellano RN, RN 07/22/2017 12:05 PM SignedPatient states that he has 40mg tablets, not 20mg. He has been taking onetablet daily, not 1/2 tablet twice daily.Patient phones requesting refills as follows:Pending Prescriptions Disp Refills FUROSEMIDE 40 MG TABLET 90 tablet 3 Sig: Take 1 tablet by mouth once daily. KEVIN: No Please review and advise.Frank DalyrisaLuisito romero has been identified by name and date of : YesRX INSTRUCTIONS:Patient aware RX will be sent to pharmacy. No need to notify patient.Ismael Ivan MD 07/22/2017 12:20 PM SignedThe following approved medication requests have been transmitted electronically.Signed Prescriptions Disp Refills furosemide (LASIX) 40 mg tablet 90 tablet 3 Sig: Take 1 tablet by mouth once daily. KEVIN: No Authorizing Provider: MOODY MONTES MDAdam Gilmor, RN, RN 07/22/2017 2:40 PM Signedescript confirmedAllergies As of Date: 07/22/2017 Noted Allergy ReactionCLONIDINE 07/21/2005CRESTOR (ROSUVASTATIN CALCIUM) 07/21/2005LIPITOR (ATORVASTATIN CALCIUM) 07/21/2005LISINOPRIL 02/10/2017 2 - RashSTATINS ([id number] REDUCTAS*07/15/2006Date Reviewed: 06/03/2017Reviewed by: Benita Garay - Fully AssessedReason for Visit: Refill Request [94]Visit Diagnosis:Chronic diastolic CHF (congestive heart failure) ([facility]) [I50.32]Order(s):furosemid e (LASIX) 40 mg tabletTake 1 tablet by mouth once daily.Disp: 90 tabletRfl: 3Prescriptions as of 07/22/2017 Sig: FUROSEMIDE 40 MG TABLET Take 1 tablet by mouth once d* GABAPENTIN 300 MG CAPSULE Take 1 capsule by mouth twice* AMLODIPINE 10 MG TABLET Take 1 tablet by mouth once d* DOXAZOSIN 4 MG TABLET TAKE TWO TABLETS BY MOUTH ONC* IPRATROPIUM BROMIDE 0.03 % NA* Use 2 Sprays in the nose ever* GRAPE SEED ORAL Take by mouth. BOSWELLIA ROLAND EXTRACT (BU* COENZYME Q10 200 MG CAPSULE Take 1 capsule by mouth once * VITAMIN B COMPLEX TABLET Take 1 tablet by mouth once d* [id number]-* Take 1,000 Units by mouth twi* FISH,SAFFLWR,FLAX,BORAG OILS-* Take 6 capsules by mouth once* FLAXSEED OIL 1,000 MG CAPSULE Take by mouth.Problem List As Of Date 07/22/2017 Noted Resolved BENIGN HYPERTENSION [I10] INVALID FOR* Priority: A HYPERLIPIDEMIA NEC/NOS [E78.5] INVALID FOR* Priority: A Enlarged prostate with urinary obstruction [N40*INVALID FOR* Priority: B More... Impotence of organic origin [N52.9] INVALID FOR* Priority: C Aneurysm of abdominal aorta [I71.4] INVALID FOR*01/12/2013 Vitiligo [L80] INVALID FOR* Priority: D CKD (chronic kidney disease) stage 3, GFR 30-59*INVALID FOR* Priority: A Well adult exam [Z00.00] INVALID FOR* Priority: E More... Recurrent ventral incisional hernia [K43.2] INVALID FOR* Unilateral inguinal hernia without obstruction *INVALID FOR* Chronic diastolic CHF (congestive heart failure*INVALID FOR* Priority: A More... Allergic rhinitis [J30.9] INVALID FOR* Priority: BPrescriptions ordered this encounter Disp Refills Start End FUROSEMIDE 40 MG TABLET 90 t* 3 07/22/2017 Route: ORAL Sig: Take 1 tablet by mouth once daily.Medications Discontinued During This Encounter furosemide (LASIX) 20 mg tablet 06/07/2017 07/22/2017 Class: Med Update Route: ORAL Sig: Take 1 tablet by mouth twice daily. Disc: Reason for discontinue is not on file. Status:Closed by FRANK ARELLANO on 07/22/17 Normal [facility] Vital Signs Date Time Vital Sign Value Performing Clinician Facility 05-18-2025 09:41-0400 Body mass index (BMI) [Ratio] 21.08 kg/m2 Darya Borden APRN.CNP Work Phone: [facility] 05-18-2025 09:41-0400 Body weight 62.9 kg Darya Saira TECHNICAL TRAINING SPECIALIST.RIDDLER OPERATOR Work Phone: [facility] 05-18-2025 09:41-0400 Diastolic blood pressure 70 mm[Hg] Darya Borden TECHNICAL TRAINING SPECIALIST.RIDDLER OPERATOR Work Phone: [facility] 05-18-2025 09:41-0400 Heart rate 56 /min Darya Borden TECHNICAL TRAINING SPECIALIST.RIDDLER OPERATOR Work Phone: [facility] 05-18-2025 09:41-0400 Respiratory rate 14 /min Darya Borden TECHNICAL TRAINING SPECIALIST.RIDDLER OPERATOR Work Phone: [facility] 05-18-2025 09:41-0400 SaO2% (BldA) [Mass fraction] 94 % Darya Borden TECHNICAL TRAINING SPECIALIST.RIDDLER OPERATOR Work Phone: [facility] 05-18-2025 09:41-0400 Systolic blood pressure 112 mm[Hg] Darya Borden TECHNICAL TRAINING SPECIALIST.RIDDLER OPERATOR Work Phone: [facility] 05-10-2025 08:07-0400 Body height 172.[address] Dallas Reed MD Work Phone: [facility] 05-10-2025 08:07-0400 Body mass index (BMI) [Ratio] 21.6 kg/m2 Dr. Dallas Reed MD Work Phone: [facility] 05-10-2025 08:07-0400 Body weight 64.[address] Dallas Reed MD Work Phone: [facility] 05-10-2025 08:07-0400 Diastolic blood pressure 55 mm[Hg] Dr. Dallas Reed MD Work Phone: [facility] 05-10-2025 08:07-0400 Heart rate 66 /min Dr. Dallas Reed MD Work Phone: [facility] 05-10-2025 08:07-0400 Respiratory rate 18 /min Dr. Dallas Reed MD Work Phone: [facility] 05-10-2025 08:07-0400 SaO2% (BldA) [Mass fraction] 98 % Dr. Dallas Reed MD Work Phone: 3(927)308-704523 [place] [address] 05-10-2025 08:07-0400 Systolic blood pressure 95 mm[Hg] Dr. Dallas Reed MD Work Phone: 6(414)523-785919 [place] [address] 04-18-2025 16:27-0400 Body temperature 98.2 [degF] Dr. Dallas Reed MD Work Phone: 4(801)857-707619 [place] [address] 04-18-2025 16:27-0400 Body weight 65.[address] Dallas Reed MD Work Phone: 0(076)662-298919 [place] [address] 04-18-2025 16:27-0400 Diastolic blood pressure 79 mm[Hg] Dr. Dallas Reed MD Work Phone: 5(241)139-850219 [place] [address] 04-18-2025 16:27-0400 Heart rate 74 /min Dr. Dallas Reed MD Work Phone: 3(897)302-890319 [place] [address] 04-18-2025 16:27-0400 Respiratory rate 16 /min Dr. Dallas Reed MD Work Phone: 1(961)129-155019 [place] [address] 04-18-2025 16:27-0400 SaO2% (BldA) [Mass fraction] 97 % Dr. Dallas Reed MD Work Phone: 6(388)769-619919 [place] [address] 04-18-2025 16:27-0400 Systolic blood pressure 158 mm[Hg] Dr. Dallas Reed MD Work Phone: 0(051)404-454119 [place] [address] 03-16-2025 19:15-0400 Diastolic blood pressure 69 mm[Hg] Ana Bobo MD Work Phone: [employer] [facility] [employer] Comment on above: per patient SBP in 120s is normal for [facility] 03-16-2025 19:15-0400 Heart rate 71 /min Ana Bobo MD Work Phone: [facility] [employer] 03-16-2025 19:15-0400 Respiratory rate 16 /min Ana Bobo MD Work Phone: [facility] 03-16-2025 19:15-0400 SaO2% (BldA) [Mass fraction] 94 % Ana Bobo MD Work Phone: [facility] 03-16-2025 19:15-0400 Systolic blood pressure 124 mm[Hg] Ana Bobo MD Work Phone: [facility] [employer] Comment on above: per patient SBP in 120s is normal for [facility] 03-16-2025 17:07-0400 Body temperature 97.3 [degF] Ana Bobo MD Work Phone: [facility] 03-16-2025 10:04-0400 Body height 172.7 cm Ana Bobo MD Work Phone: [facility] 03-16-2025 10:04-0400 Body mass index (BMI) [Ratio] 22.66 kg/m2 Ana Bobo MD Work Phone: [facility] 03-16-2025 10:04-0400 Body weight 67.59 kg Ana Bobo MD Work Phone: [facility] 03-12-2025 08:39-0400 Body mass index (BMI) [Ratio] 21.69 kg/m2 Darya Borden TECHNICAL TRAINING SPECIALIST.RIDDLER OPERATOR Work Phone: [facility] 03-12-2025 08:39-0400 Body weight 64.7 kg Darya Borden TECHNICAL TRAINING SPECIALIST.RIDDLER OPERATOR Work Phone: [facility] 03-12-2025 08:39-0400 Diastolic blood pressure 68 mm[Hg] Darya Borden TECHNICAL TRAINING SPECIALIST.RIDDLER OPERATOR Work Phone: [facility] 03-12-2025 08:39-0400 Heart rate 70 /min Darya Borden TECHNICAL TRAINING SPECIALIST.RIDDLER OPERATOR Work Phone: [facility] 03-12-2025 08:39-0400 Respiratory rate 14 /min Darya Borden TECHNICAL TRAINING SPECIALIST.RIDDLER OPERATOR Work Phone: [facility] 03-12-2025 08:39-0400 SaO2% (BldA) [Mass fraction] 98 % Darya Borden TECHNICAL TRAINING SPECIALIST.RIDDLER OPERATOR Work Phone: [facility] 03-12-2025 08:39-0400 Systolic blood pressure 112 mm[Hg] Darya Borden APRN.RIDDLER OPERATOR Work Phone: [facility] 02-27-2025 14:48-0400 Body temperature 97.5 [degF] Dr. Dallas Reed MD Work Phone: 3(345)048-643623 [place] [address] 02-27-2025 14:48-0400 Body weight 64.[address] Dallas Reed MD Work Phone: 5(195)062-707019 [place] [address] 02-27-2025 14:48-0400 Diastolic blood pressure 72 mm[Hg] Dr. Dallas Reed MD Work Phone: 3(951)066-854423 [place] [address] 02-27-2025 14:48-0400 Heart rate 60 /min Dr. Dallas Reed MD Work Phone: 6(436)162-145923 [place] [address] 02-27-2025 14:48-0400 Respiratory rate 16 /min Dr. Dallas Reed MD Work Phone: 2(189)256-776423 [place] [address] 02-27-2025 14:48-0400 SaO2% (BldA) [Mass fraction] 100 % Dr. Dallas Reed MD Work Phone: 9(326)388-882123 [place] [address] 02-27-2025 14:48-0400 Systolic blood pressure 123 mm[Hg] Dr. Dallas Reed MD Work Phone: 5(178)642-205023 [place] [address] 02-14-2025 20:53-0400 Body temperature 97.7 [degF] Dr. Dallas Reed MD Work Phone: 3(944)236-073823 [place] [address] 02-14-2025 20:53-0400 Diastolic blood pressure 76 mm[Hg] Dr. Dallas Reed MD Work Phone: 1(525)705-491823 [place] [address] 02-14-2025 20:53-0400 Heart rate 73 /min Dr. Dallas Reed MD Work Phone: 1(970)078-628023 [place] [address] 02-14-2025 20:53-0400 Respiratory rate 17 /min Dr. Dallas Reed MD Work Phone: 2(373)229-927919 [place] [address] 02-14-2025 20:53-0400 SaO2% (BldA) [Mass fraction] 94 % Dr. Dallas Reed MD Work Phone: 0(306)394-809619 [place] [address] 02-14-2025 20:53-0400 Systolic blood pressure 143 mm[Hg] Dr. Dallas Reed MD Work Phone: 7(915)783-577819 [place] [address] 02-14-2025 09:53-0400 Body height 172.[address] Dallas Reed MD Work Phone: 8(727)444-422119 [place] [address] 02-14-2025 09:53-0400 Body weight 67.[address] Dallas Reed MD Work Phone: 1(536)646-804419 [place] [address] 02-13-2025 07:14-0400 Body mass index (BMI) [Ratio] 22.5 kg/m2 Dr. Dallas Reed MD Work Phone: 6(088)222-654419 [place] [address] 01-12-2025 13:36-0400 Body temperature 97.4 [degF] Dr. Dallas Reed MD Work Phone: 7(371)494-901419 [place] [address] 01-12-2025 13:36-0400 Diastolic blood pressure 78 mm[Hg] Dr. Dallas Reed MD Work Phone: 4(765)956-244819 [place] [address] 01-12-2025 13:36-0400 Heart rate 61 /min Dr. Dallas Reed MD Work Phone: 5(576)994-115419 [place] [address] 01-12-2025 13:36-0400 Respiratory rate 16 /min Dr. Dallas Reed MD Work Phone: 4(121)858-426519 [place] [address] 01-12-2025 13:36-0400 SaO2% (BldA) [Mass fraction] 96 % Dr. Dallas Reed MD Work Phone: 7(069)969-449819 [place] [address] 01-12-2025 13:36-0400 Systolic blood pressure 142 mm[Hg] Dr. Dallas Reed MD Work Phone: 0(816)832-031323 [place] [address] 01-12-2025 10:30-0400 Body height 172.[address] Dallas Reed MD Work Phone: 9(170)784-791419 [place] [address] 01-12-2025 10:30-0400 Body mass index (BMI) [Ratio] 22.4 kg/m2 Dr. Dallas Reed MD Work Phone: 9(221)363-290619 [place] [address] 01-12-2025 10:30-0400 Body weight 67.[address] Dallas Reed MD Work Phone: 7(631)574-886919 [place] [address] 12-25-2024 15:58-0400 Body temperature 98 [degF] Dr. Dallas Reed MD Work Phone: 7(806)368-292819 [place] [address] 12-25-2024 15:58-0400 Body weight 67.[address] Dallas Reed MD Work Phone: 9(035)966-16[address] [place] [address] 12-25-2024 15:58-0400 Diastolic blood pressure 83 mm[Hg] Dr. Dallas Reed MD Work Phone: 6(887)795-130219 [place] [address] 12-25-2024 15:58-0400 Heart rate 68 /min Dr. Dallas Reed MD Work Phone: 6(827)694-255219 [place] [address] 12-25-2024 15:58-0400 Respiratory rate 16 /min Dr. Dallas Reed MD Work Phone: 6(403)160-076119 [place] [address] 12-25-2024 15:58-0400 SaO2% (BldA) [Mass fraction] 97 % Dr. Dallas Reed MD Work Phone: 3(204)690-350123 [place] [address] 12-25-2024 15:58-0400 Systolic blood pressure 160 mm[Hg] Dr. Dallas Reed MD Work Phone: 2(687)550-598219 [place] [address] 12-19-2024 09:00-0400 Diastolic blood pressure 65 mm[Hg] Ramon Lee PT Work Phone: [facility] Comment on above: Before [employer] 12-19-2024 09:00-0400 Heart rate 67 /min Ramon Yvonne PT Work Phone: [facility] Comment on above: Before [employer]. 12-19-2024 09:00-0400 Systolic blood pressure 138 mm[Hg] Ramon Yvonne PT Work Phone: [facility] Comment on above: Before [employer] 12-15-2024 09:00-0400 Diastolic blood pressure 67 mm[Hg] Ramon Yvonne PT Work Phone: [facility] Comment on above: Before [employer] 12-15-2024 09:00-0400 Heart rate 71 /min Ramon Yvonne PT Work Phone: [facility] Comment on above: Before [employer] 12-15-2024 09:00-0400 Systolic blood pressure 124 mm[Hg] Ramon Yvonne PT Work Phone: [facility] Comment on above: Before [employer] 12-12-2024 09:00-0400 Diastolic blood pressure 85 mm[Hg] Ramon Yvonne PT Work Phone: [facility] Comment on above: BP before [employer] 12-12-2024 09:00-0400 Heart rate 73 /min Ramon Yvonne PT Work Phone: [facility] 12-12-2024 09:00-0400 Systolic blood pressure 150 mm[Hg] Ramon Yvonne PT Work Phone: [facility] Comment on above: BP before [employer] 12-08-2024 11:25-0400 Body height 172.7 cm Dallas Reed MD Work Phone: [facility] 12-08-2024 11:25-0400 Body mass index (BMI) [Ratio] 22.46 kg/m2 Dallas Reed MD Work Phone: [facility] 12-08-2024 11:25-0400 Body temperature 97.9 [degF] Dallas Reed MD Work Phone: [facility] 12-08-2024 11:25-0400 Body weight 67 kg Dallas Reed MD Work Phone: [facility] 12-08-2024 11:25-0400 Diastolic blood pressure 60 mm[Hg] Dallas Reed MD Work Phone: [facility] 12-08-2024 11:25-0400 Heart rate 71 /min Dallas Reed MD Work Phone: [facility] 12-08-2024 11:25-0400 Respiratory rate 12 /min Dallas Reed MD Work Phone: [facility] 12-08-2024 11:25-0400 SaO2% (BldA) [Mass fraction] 97 % Dallas Reed MD Work Phone: [facility] 12-08-2024 11:25-0400 Systolic blood pressure 110 mm[Hg] Ramon Ricerell PT Work Phone: [facility] Comment on above: Prior to [employer] 12-08-2024 09:00-0400 Diastolic blood pressure 62 mm[Hg] Ramon Yvonne PT Work Phone: [facility] Comment on above: Prior to [employer] 12-08-2024 09:00-0400 Heart rate 66 /min Ramon Yvonne PT Work Phone: [facility] Comment on above: Prior to [employer] 12-06-2024 09:00-0400 Diastolic blood pressure 77 mm[Hg] Ramon Yvonne PT Work Phone: [facility] Comment on above: Prior to [employer] 12-06-2024 09:00-0400 Heart rate 60 /min Ramon Yvonne PT Work Phone: [facility] 12-06-2024 09:00-0400 Systolic blood pressure 148 mm[Hg] Ramon Yvonne PT Work Phone: [facility] Comment on above: Prior to [employer] 11-28-2024 20:00-0400 Diastolic blood pressure 79 mm[Hg] Dr. Dallas Reed MD Work Phone: [facility] 11-28-2024 20:00-0400 Heart rate 76 /min Dr. Dallas Reed MD Work Phone: [facility] 11-28-2024 20:00-0400 Respiratory rate 18 /min Dr. Dallas Reed MD Work Phone: [facility] 11-28-2024 20:00-0400 SaO2% (BldA) [Mass fraction] 93 % Dr. Dallas Reed MD Work Phone: [facility] 11-28-2024 20:00-0400 Systolic blood pressure 143 mm[Hg] Dr. Dallas Reed MD Work Phone: 4(495)866-738819 [place] [address] 11-28-2024 19:31-0400 Body temperature 98.3 [degF] Dr. Dallas Reed MD Work Phone: 3(574)898-653223 [place] [address] 11-28-2024 17:53-0400 Body height 172.[address] Dallas Reed MD Work Phone: 7(217)434-319923 [place] [address] 11-28-2024 17:53-0400 Body mass index (BMI) [Ratio] 23 kg/m2 Dr. Dallas Reed MD Work Phone: 4(561)721-826923 [place] [address] 11-28-2024 17:53-0400 Body weight 68.[address] Dallas Reed MD Work Phone: [facility] 11-27-2024 10:51-0400 Body mass index (BMI) [Ratio] 22.59 kg/m2 Darya Borden TECHNICAL TRAINING SPECIALIST.RIDDLER OPERATOR Work Phone: [facility] 11-27-2024 10:51-0400 Body temperature 97.7 [degF] Darya Borden TECHNICAL TRAINING SPECIALIST.RIDDLER OPERATOR Work Phone: [facility] 11-27-2024 10:51-0400 Body weight 67.6 kg Darya Borden TECHNICAL TRAINING SPECIALIST.RIDDLER OPERATOR Work Phone: [facility] 11-27-2024 10:51-0400 Diastolic blood pressure 70 mm[Hg] Darya Borden TECHNICAL TRAINING SPECIALIST.RIDDLER OPERATOR Work Phone: [facility] 11-27-2024 10:51-0400 Heart rate 70 /min Darya Saira TECHNICAL TRAINING SPECIALIST.RIDDLER OPERATOR Work Phone: [facility] 11-27-2024 10:51-0400 Respiratory rate 14 /min Darya Saira TECHNICAL TRAINING SPECIALIST.RIDDLER OPERATOR Work Phone: [facility] 11-27-2024 10:51-0400 SaO2% (BldA) [Mass fraction] 98 % Darya Saira TECHNICAL TRAINING SPECIALIST.RIDDLER OPERATOR Work Phone: [facility] 11-27-2024 10:51-0400 Systolic blood pressure 122 mm[Hg] Darya Saira TECHNICAL TRAINING SPECIALIST.RIDDLER OPERATOR Work Phone: [facility] 11-24-2024 07:00-0500 Diastolic blood pressure 74 mm[Hg] Ramon Lee PT Work Phone: [facility] 11-24-2024 07:00-0500 Heart rate 90 /min Ramon Lee PT Work Phone: [facility] 11-24-2024 07:00-0500 Systolic blood pressure 144 mm[Hg] Ramon Lee PT Work Phone: [facility] 11-09-2024 14:09-0500 Diastolic blood pressure 63 mm[Hg] Dallas Reed MD Work Phone: [facility] 11-09-2024 14:09-0500 Heart rate 66 /min Dallsa Reed MD Work Phone: [facility] 11-09-2024 14:09-0500 Systolic blood pressure 120 mm[Hg] Dallas Reed MD Work Phone: [facility] 11-09-2024 14:00-0500 Body mass index (BMI) [Ratio] 23.02 kg/m2 Dallas Reed MD Work Phone: [facility] 11-09-2024 14:00-0500 Body temperature 98.71 [degF] Dallas Reed MD Work Phone: [facility] 11-09-2024 14:00-0500 Body weight 68.9 kg Dallas Reed MD Work Phone: [facility] 11-07-2024 11:00-0500 Body mass index (BMI) [Ratio] 23.05 kg/m2 Elbert Hawk APRN.RIDDLER OPERATOR Work Phone: [facility] 11-07-2024 11:00-0500 Body temperature 97.81 [degF] Elbert Hawk TECHNICAL TRAINING SPECIALIST.RIDDLER OPERATOR Work Phone: [facility] 11-07-2024 11:00-0500 Body weight 69 kg Elbert Hawk APRN.RIDDLER OPERATOR Work Phone: [facility] 11-07-2024 11:00-0500 Diastolic blood pressure 81 mm[Hg] Elbert Hawk APRN.RIDDLER OPERATOR Work Phone: [facility] 11-07-2024 11:00-0500 Heart rate 57 /min Elbert Hawk APRN.RIDDLER OPERATOR Work Phone: [facility] 11-07-2024 11:00-0500 Respiratory rate 18 /min Elbert Hawk APRN.RIDDLER OPERATOR Work Phone: [facility] 11-07-2024 11:00-0500 SaO2% (BldA) [Mass fraction] 100 % Elbert Hawk APRN.RIDDLER OPERATOR Work Phone: [facility] 11-07-2024 11:00-0500 Systolic blood pressure 150 mm[Hg] Elbert Hawk APRN.RIDDLER OPERATOR Work Phone: [facility] 09-07-2024 09:53-0500 Body height 173 cm Darya Borden APRN.RIDDLER OPERATOR Work Phone: [facility] 09-07-2024 09:53-0500 Body mass index (BMI) [Ratio] 23.19 kg/m2 Darya Borden APRN.RIDDLER OPERATOR Work Phone: [facility] 09-07-2024 09:53-0500 Body weight 69.4 kg Darya Saira TECHNICAL TRAINING SPECIALIST.RIDDLER OPERATOR Work Phone: [facility] 09-07-2024 09:53-0500 Diastolic blood pressure 84 mm[Hg] Darya Saira TECHNICAL TRAINING SPECIALIST.RIDDLER OPERATOR Work Phone: [facility] 09-07-2024 09:53-0500 Heart rate 68 /min Darya Saira TECHNICAL TRAINING SPECIALIST.RIDDLER OPERATOR Work Phone: [facility] 09-07-2024 09:53-0500 Respiratory rate 14 /min Darya Saira TECHNICAL TRAINING SPECIALIST.RIDDLER OPERATOR Work Phone: [facility] 09-07-2024 09:53-0500 SaO2% (BldA) [Mass fraction] 98 % Darya Saira TECHNICAL TRAINING SPECIALIST.RIDDLER OPERATOR Work Phone: [facility] 09-07-2024 09:53-0500 Systolic blood pressure 122 mm[Hg] Darya Saira TECHNICAL TRAINING SPECIALIST.RIDDLER OPERATOR Work Phone: [facility] 08-31-2024 16:16-0500 Body temperature 98.4 [degF] Dr. Dallas Reed MD Work Phone: [facility] 08-31-2024 16:16-0500 Diastolic blood pressure 90 mm[Hg] Dr. Dallas Reed MD Work Phone: [facility] 08-31-2024 16:16-0500 Heart rate 70 /min Dr. Dallas Reed MD Work Phone: [facility] 08-31-2024 16:16-0500 Respiratory rate 16 /min Dr. Dallas Reed MD Work Phone: [facility] 08-31-2024 16:16-0500 SaO2% (BldA) [Mass fraction] 97 % Dr. Dallas Reed MD Work Phone: [facility] 08-31-2024 16:16-0500 Systolic blood pressure 175 mm[Hg] Dr. Dallas Reed MD Work Phone: [facility] 08-31-2024 06:39-0500 Body mass index (BMI) [Ratio] 23.1 kg/m2 Dr. Dallas Reed MD Work Phone: [facility] 08-31-2024 06:39-0500 Body weight 69.[address] Dallas Reed MD Work Phone: [facility] [place] 07-17-2024 12:41-0400 Body mass index (BMI) [Ratio] 23.87 kg/m2 Dallas Reed MD Work Phone: [facility] 07-17-2024 12:41-0400 Body temperature 98.1 [degF] Dallas Reed MD Work Phone: [facility] 07-17-2024 12:41-0400 Body weight 71.2 kg Dallas Reed MD Work Phone: [facility] 07-17-2024 12:41-0400 Diastolic blood pressure 62 mm[Hg] Dallas Reed MD Work Phone: [facility] 07-17-2024 12:41-0400 Heart rate 64 /min Dallas Reed MD Work Phone: [facility] 07-17-2024 12:41-0400 Respiratory rate 12 /min Dallas Reed MD Work Phone: [facility] 07-17-2024 12:41-0400 Systolic blood pressure 110 mm[Hg] Dallas Reed MD Work Phone: [facility] 06-07-2024 09:00-0400 Diastolic blood pressure 62 mm[Hg] Dallas Reed MD Work Phone: [facility] 06-07-2024 09:00-0400 Systolic blood pressure 124 mm[Hg] Dallas Reed MD Work Phone: [facility] 06-07-2024 08:29-0400 Body mass index (BMI) [Ratio] 24.17 kg/m2 Dallas Reed MD Work Phone: [facility] 06-07-2024 08:29-0400 Body temperature 98.49 [degF] Dallas Reed MD Work Phone: [facility] 06-07-2024 08:29-0400 Body weight 72.1 kg Dallas Reed MD Work Phone: [facility] 06-07-2024 08:29-0400 Heart rate 64 /min Dallas Reed MD Work Phone: [facility] 06-07-2024 08:29-0400 Respiratory rate 12 /min Dallas Reed MD Work Phone: [facility] 05-23-2024 15:20-0400 Diastolic blood pressure 90 mm[Hg] Adrian Bogner PA-C Work Phone: [facility] Comment on above: fab bp average 05-23-2024 15:20-0400 Systolic blood pressure 190 mm[Hg] Adrian Bogner PA-C Work Phone: [facility] Comment on above: fab bp average 05-23-2024 14:01-0400 Body height 172.7 cm Adrian Bogner PA-C Work Phone: [facility] 05-23-2024 14:01-0400 Body mass index (BMI) [Ratio] 23.72 kg/m2 Adrian Bogner PA-C Work Phone: [facility] 05-23-2024 14:01-0400 Body weight 70.76 kg Adrian Bogner PA-C Work Phone: [facility] 05-23-2024 14:01-0400 Heart rate 68 /min Adrian Bogner PA-C Work Phone: [facility] 05-23-2024 14:01-0400 Respiratory rate 12 /min Adrian Bogner PA-C Work Phone: [facility] 05-23-2024 14:01-0400 SaO2% (BldA) [Mass fraction] 98 % Adrian Bogner PA-C Work Phone: [facility] 03-11-2024 11:13-0400 Body mass index (BMI) [Ratio] 25.01 kg/m2 Prema Cyndie TECHNICAL TRAINING SPECIALIST.RIDDLER OPERATOR Work Phone: [facility] 03-11-2024 11:13-0400 Body temperature 97 [degF] Prema Elba TECHNICAL TRAINING SPECIALIST.RIDDLER OPERATOR Work Phone: [facility] 03-11-2024 11:13-0400 Body weight 74.6 kg Prema Cyndie TECHNICAL TRAINING SPECIALIST.RIDDLER OPERATOR Work Phone: [facility] 03-11-2024 11:13-0400 Diastolic blood pressure 78 mm[Hg] Prema Elba TECHNICAL TRAINING SPECIALIST.RIDDLER OPERATOR Work Phone: [facility] 03-11-2024 11:13-0400 Heart rate 67 /min Prema Elba TECHNICAL TRAINING SPECIALIST.RIDDLER OPERATOR Work Phone: [facility] 03-11-2024 11:13-0400 Respiratory rate 18 /min Prema Elba TECHNICAL TRAINING SPECIALIST.RIDDLER OPERATOR Work Phone: [facility] 03-11-2024 11:13-0400 SaO2% (BldA) [Mass fraction] 97 % Prema Elba TECHNICAL TRAINING SPECIALIST.RIDDLER OPERATOR Work Phone: [facility] 03-11-2024 11:13-0400 Systolic blood pressure 152 mm[Hg] Prema Cyndie TECHNICAL TRAINING SPECIALIST.RIDDLER OPERATOR Work Phone: [facility] 02-09-2024 16:15-0400 Body mass index (BMI) [Ratio] 25.41 kg/m2 Ayla Athy PA-C Work Phone: [facility] 02-09-2024 16:15-0400 Body temperature 97.7 [degF] Ayla Athy PA-C Work Phone: [facility] 02-09-2024 16:15-0400 Body weight 75.8 kg Ayla Athy PA-C Work Phone: [facility] 02-09-2024 16:15-0400 Diastolic blood pressure 80 mm[Hg] Ayla Athy PA-C Work Phone: [facility] 02-09-2024 16:15-0400 Heart rate 58 /min Ayla Athy PA-C Work Phone: [facility] 02-09-2024 16:15-0400 Respiratory rate 16 /min Ayla Athy PA-C Work Phone: [facility] 02-09-2024 16:15-0400 SaO2% (BldA) [Mass fraction] 95 % Ayla Athy PA-C Work Phone: [facility] 02-09-2024 16:15-0400 Systolic blood pressure 124 mm[Hg] Ayla Worthingtony PA-C Work Phone: [facility] 01-17-2024 08:24-0400 Body height 172.7 cm Shaun Kowalski MD Work Phone: [facility] 01-17-2024 08:24-0400 Body mass index (BMI) [Ratio] 25.32 kg/m2 Shaun Kowalski MD Work Phone: [facility] 01-17-2024 08:24-0400 Body temperature 97.11 [degF] Shaun Kowalski MD Work Phone: [facility] 01-17-2024 08:24-0400 Body weight 75.52 kg Shaun Kowalski MD Work Phone: [facility] 01-17-2024 08:24-0400 Diastolic blood pressure 85 mm[Hg] Shaun Kowalski MD Work Phone: [facility] 01-17-2024 08:24-0400 Heart rate 63 /min Shaun Kowalski MD Work Phone: [facility] 01-17-2024 08:24-0400 Respiratory rate 18 /min Shaun Kowalski MD Work Phone: [facility] 01-17-2024 08:24-0400 SaO2% (BldA) [Mass fraction] 97 % Shaun Kowalski MD Work Phone: [facility] 01-17-2024 08:24-0400 Systolic blood pressure 141 mm[Hg] Shaun Kowalski MD Work Phone: [facility] 01-10-2024 08:57-0400 Body mass index (BMI) [Ratio] 25.09 kg/m2 Darya Borden APRN.RIDDLER OPERATOR Work Phone: [facility] 01-10-2024 08:57-0400 Body weight 74.84 kg Darya Borden TECHNICAL TRAINING SPECIALIST.RIDDLER OPERATOR Work Phone: [facility] 01-10-2024 08:57-0400 Diastolic blood pressure 72 mm[Hg] Darya Borden APRN.RIDDLER OPERATOR Work Phone: [facility] 01-10-2024 08:57-0400 Heart rate 61 /min Darya Borden APRN.RIDDLER OPERATOR Work Phone: [facility] 01-10-2024 08:57-0400 Respiratory rate 18 /min Darya Borden APRN.RIDDLER OPERATOR Work Phone: [facility] 01-10-2024 08:57-0400 Systolic blood pressure 112 mm[Hg] Darya Borden APRN.RIDDLER OPERATOR Work Phone: [facility] 12-27-2023 08:40-0400 Diastolic blood pressure 74 mm[Hg] [facility] 12-27-2023 08:40-0400 Heart rate 67 /min [facility] 12-27-2023 08:40-0400 Respiratory rate 16 /min [facility] 12-27-2023 08:40-0400 SaO2% (BldA) [Mass fraction] 97 % [facility] 12-27-2023 08:40-0400 Systolic blood pressure 159 mm[Hg] [facility] 12-27-2023 07:28-0400 Body height 172.72 cm [facility] 12-27-2023 07:28-0400 Body mass index (BMI) [Ratio] 25 kg/m2 [facility] 12-27-2023 07:28-0400 Body temperature 97.8 [degF] [facility] 12-27-2023 07:28-0400 Body weight 74.84 kg [facility] 08-10-2023 08:08-0500 Body height 172.7 cm Darya Older TECHNICAL TRAINING SPECIALIST.RIDDLER OPERATOR Work Phone: [facility] 08-10-2023 08:08-0500 Body weight 72.58 kg Darya Older TECHNICAL TRAINING SPECIALIST.RIDDLER OPERATOR Work Phone: [facility] 08-10-2023 08:08-0500 Diastolic blood pressure 74 mm[Hg] Darya Older TECHNICAL TRAINING SPECIALIST.RIDDLER OPERATOR Work Phone: [facility] 08-10-2023 08:08-0500 Heart rate 68 /min Darya Older TECHNICAL TRAINING SPECIALIST.RIDDLER OPERATOR Work Phone: [facility] 08-10-2023 08:08-0500 Respiratory rate 16 /min Darya Older TECHNICAL TRAINING SPECIALIST.RIDDLER OPERATOR Work Phone: [facility] 08-10-2023 08:08-0500 SaO2% (BldA) [Mass fraction] 98 % Darya Older TECHNICAL TRAINING SPECIALIST.RIDDLER OPERATOR Work Phone: [facility] 08-10-2023 08:08-0500 Systolic blood pressure 122 mm[Hg] Darya Older TECHNICAL TRAINING SPECIALIST.RIDDLER OPERATOR Work Phone: [facility] 06-25-2023 13:25-0400 Body height 172.[address] Dallas Reed Work Phone: [facility] 06-25-2023 13:25-0400 Body mass index (BMI) [Ratio] 24.9 kg/m2 Dr. Dallas Reed Work Phone: [facility] 06-25-2023 13:25-0400 Body temperature 97.1 [degF] Dr. Dallas Reed Work Phone: [facility] 06-25-2023 13:25-0400 Body weight 74.[address] Dallas Reed Work Phone: [facility] 06-25-2023 13:25-0400 Diastolic blood pressure 79 mm[Hg] Dr. Dallas Reed Work Phone: 2(281)411-799123 [place] [address] 06-25-2023 13:25-0400 Heart rate 61 /min Dr. Dallas Reed Work Phone: 2(009)100-971019 [place] [address] 06-25-2023 13:25-0400 Respiratory rate 16 /min Dr. Dallas Reed Work Phone: 8(940)968-755919 [place] [address] 06-25-2023 13:25-0400 SaO2% (BldA) [Mass fraction] 98 % Dr. Dallas Reed Work Phone: 1(405)491-724119 [place] [address] 06-25-2023 13:25-0400 Systolic blood pressure 202 mm[Hg] Dr. Dallas Reed Work Phone: 4(052)339-459319 [place] [address] 05-26-2023 14:15-0400 Body height 172.[address] Dallas Reed Work Phone: 4(644)073-525319 [place] [address] 05-26-2023 14:15-0400 Body mass index (BMI) [Ratio] 25.4 kg/m2 Dr. Dallas Reed Work Phone: 9(929)433-268519 [place] [address] 05-26-2023 14:15-0400 Body weight 75.[address] Dallas Reed Work Phone: 1(565)498-411519 [place] [address] 05-26-2023 14:15-0400 Diastolic blood pressure 79 mm[Hg] Dr. Dallas Reed Work Phone: 2(160)566-659019 [place] [address] 05-26-2023 14:15-0400 Heart rate 63 /min Dr. Dallas Reed Work Phone: 7(113)687-477319 [place] [address] 05-26-2023 14:15-0400 Respiratory rate 16 /min Dr. Dallas Reed Work Phone: 9(971)590-937619 [place] [address] 05-26-2023 14:15-0400 SaO2% (BldA) [Mass fraction] 97 % Dr. Dallas Reed Work Phone: 1(795)930-558819 [place] [address] 05-26-2023 14:15-0400 Systolic blood pressure 159 mm[Hg] Dr. Dallas Reed Work Phone: [facility] 04-19-2023 10:15-0400 Diastolic blood pressure 68 mm[Hg] Dr. Dallas Reed Work Phone: [facility] 04-19-2023 10:15-0400 Heart rate 64 /min Dr. Dallas Reed Work Phone: [facility] 04-19-2023 10:15-0400 Respiratory rate 17 /min Dr. Dallas Reed Work Phone: [facility] 04-19-2023 10:15-0400 SaO2% (BldA) [Mass fraction] 98 % Dr. Dallas Reed Work Phone: [facility] 04-19-2023 10:15-0400 Systolic blood pressure 169 mm[Hg] Dr. Dallas Reed Work Phone: [facility] 04-16-2023 10:16-0400 Body weight 74.39 kg Dallas Reed MD Work Phone: [facility] 04-16-2023 10:16-0400 Diastolic blood pressure 70 mm[Hg] Dallas Reed MD Work Phone: [facility] 04-16-2023 10:16-0400 Heart rate 60 /min Dallas Reed MD Work Phone: [facility] 04-16-2023 10:16-0400 Respiratory rate 16 /min Dallas Reed MD Work Phone: [facility] 04-16-2023 10:16-0400 Systolic blood pressure 146 mm[Hg] Dallas Reed MD Work Phone: [facility] 04-08-2023 17:09-0400 Body temperature 97.8 [degF] Dr. Dallas Reed Work Phone: [facility] 04-08-2023 17:09-0400 Diastolic blood pressure 66 mm[Hg] Dr. Dallas Reed Work Phone: [facility] 04-08-2023 17:09-0400 Heart rate 71 /min Dr. Dallas Reed Work Phone: 2(862)780-196519 [place] [address] 04-08-2023 17:09-0400 Respiratory rate 20 /min Dr. Dallas Reed Work Phone: 1(887)346-425019 [place] [address] 04-08-2023 17:09-0400 SaO2% (BldA) [Mass fraction] 99 % Dr. Dallas Reed Work Phone: 8(860)279-189919 [place] [address] 04-08-2023 17:09-0400 Systolic blood pressure 159 mm[Hg] Dr. Dallas Reed Work Phone: 9(031)323-701019 [place] [address] 04-08-2023 08:00-0400 Inhaled oxygen flow rate 2 L/min Dr. Dallas Reed Work Phone: 2(871)622-824719 [place] [address] 04-08-2023 01:32-0400 Body mass index (BMI) [Ratio] 25.2 kg/m2 Dr. Dallas Reed Work Phone: 8(240)945-759019 [place] [address] 04-08-2023 01:32-0400 Body weight 75.[address] Dallas Reed Work Phone: 6(078)148-566219 [place] [address] 04-07-2023 10:14-0400 Body height 172.[address] Dallas Reed Work Phone: 6(049)076-653619 [place] [address] 03-05-2023 07:49-0400 Diastolic blood pressure 75 mm[Hg] Dr. Dallas Reed Work Phone: 6(673)736-579019 [place] [address] 03-05-2023 07:49-0400 Systolic blood pressure 156 mm[Hg] Dr. Dallas Reed Work Phone: 3(700)572-723519 [place] [address] 03-04-2023 09:57-0400 Diastolic blood pressure 76 mm[Hg] Dallas Reed MD Work Phone: [facility] 03-04-2023 09:57-0400 Heart rate 62 /min Dallas Reed MD Work Phone: [facility] 03-04-2023 09:57-0400 Systolic blood pressure 160 mm[Hg] Dallas Reed MD Work Phone: [facility] 03-04-2023 09:48-0400 Body weight 73.48 kg Dallas Reed MD Work Phone: [facility] 03-04-2023 09:48-0400 Respiratory rate 12 /min Dallas Reed MD Work Phone: [facility] 02-25-2023 14:17-0400 Body mass index (BMI) [Ratio] 25 kg/m2 Dr. Dallas Reed Work Phone: [facility] 02-25-2023 14:17-0400 Body temperature 98.1 [degF] Dr. Dallas Reed Work Phone: [facility] 02-25-2023 14:17-0400 Body weight 74.[address] Dallas Reed Work Phone: [facility] 02-25-2023 14:17-0400 Diastolic blood pressure 65 mm[Hg] Dr. Dallas Reed Work Phone: [facility] 02-25-2023 14:17-0400 Heart rate 68 /min Dr. Dlalas Reed Work Phone: [facility] 02-25-2023 14:17-0400 Respiratory rate 16 /min Dr. Dallas Reed Work Phone: [facility] 02-25-2023 14:17-0400 SaO2% (BldA) [Mass fraction] 98 % Dr. Dallas Reed Work Phone: [facility] 02-25-2023 14:17-0400 Systolic blood pressure 129 mm[Hg] Dr. Dallas Reed Work Phone: [facility] 02-23-2023 09:51-0400 Diastolic blood pressure 97 mm[Hg] Dr. Dallas Reed Work Phone: [facility] 02-23-2023 09:51-0400 Systolic blood pressure 199 mm[Hg] Dr. Dallas Reed Work Phone: [facility] 02-23-2023 09:36-0400 Body temperature 97.8 [degF] Dr. Dallas Reed Work Phone: [facility] 02-23-2023 09:36-0400 Heart rate 55 /min Dr. Dallas Reed Work Phone: [facility] 02-23-2023 09:36-0400 Respiratory rate 18 /min Dr. Dallas Reed Work Phone: [facility] 02-23-2023 09:36-0400 SaO2% (BldA) [Mass fraction] 99 % Dr. Dallas Reed Work Phone: [facility] 02-01-2023 10:45-0400 Body temperature 96.91 [degF] Adrian Bogner PA-C Work Phone: [facility] 02-01-2023 10:45-0400 Body weight 73.48 kg Adrian Bogner PA-C Work Phone: [facility] 02-01-2023 10:45-0400 Diastolic blood pressure 64 mm[Hg] Adrian Bogner PA-C Work Phone: [facility] 02-01-2023 10:45-0400 Heart rate 64 /min Adrian Bogner PA-C Work Phone: [facility] 02-01-2023 10:45-0400 Respiratory rate 16 /min Adrian Bogner PA-C Work Phone: [facility] 02-01-2023 10:45-0400 SaO2% (BldA) [Mass fraction] 99 % Adrian Bogner PA-C Work Phone: [facility] 02-01-2023 10:45-0400 Systolic blood pressure 108 mm[Hg] Adrian Bogner PA-C Work Phone: [facility] 01-15-2023 11:59-0400 Diastolic blood pressure 72 mm[Hg] Lisa Rodriguez MD Work Phone: [facility] 01-15-2023 11:59-0400 Heart rate 67 /min Lisa Rodriguez MD Work Phone: [facility] 01-15-2023 11:59-0400 Respiratory rate 18 /min Lisa Rodriguez MD Work Phone: [facility] 01-15-2023 11:59-0400 SaO2% (BldA) [Mass fraction] 97 % Lisa Rodriguez MD Work Phone: [facility] 01-15-2023 11:59-0400 Systolic blood pressure 147 mm[Hg] Lisa Rodriguez MD Work Phone: [facility] 01-15-2023 11:43-0400 Body temperature 97.81 [degF] Lisa Rodriguez MD Work Phone: [facility] 01-15-2023 10:54-0400 Body height 172.7 cm Lisa Rodriguez MD Work Phone: [facility] 01-15-2023 10:54-0400 Body mass index (BMI) [Ratio] 24.33 kg/m2 Lisa Rodriguez MD Work Phone: [facility] 01-15-2023 10:54-0400 Body weight 72.58 kg Lisa Rodriguez MD Work Phone: [facility] 01-07-2023 16:10-0400 Body height 172.7 cm Lisa Rodriguez MD Work Phone: [facility] 01-07-2023 16:10-0400 Body weight 72.58 kg Lisa Rodriguez MD Work Phone: [facility] 01-07-2023 16:10-0400 Diastolic blood pressure 68 mm[Hg] Lisa Rodriguez MD Work Phone: [facility] 01-07-2023 16:10-0400 Heart rate 74 /min Lisa Rodriguez MD Work Phone: [facility] 01-07-2023 16:10-0400 Systolic blood pressure 114 mm[Hg] Lisa Rodriguez MD Work Phone: [facility] 12-30-2022 11:57-0400 Body temperature 97.39 [degF] Dallas Reed MD Work Phone: [facility] 12-30-2022 11:57-0400 Body weight 72.35 kg Dallas Reed MD Work Phone: [facility] 12-30-2022 11:57-0400 Diastolic blood pressure 80 mm[Hg] Dallas Reed MD Work Phone: [facility] 12-30-2022 11:57-0400 Heart rate 64 /min Dallas Reed MD Work Phone: [facility] 12-30-2022 11:57-0400 Respiratory rate 16 /min Dallas Reed MD Work Phone: [facility] 12-30-2022 11:57-0400 Systolic blood pressure 132 mm[Hg] Dallas Reed MD Work Phone: [facility] 07-03-2022 16:55-0400 Body temperature 97.39 [degF] Gavin Rivero APRN.RIDDLER OPERATOR Work Phone: [facility] 07-03-2022 16:55-0400 Body weight 76.11 kg Gavin Rivero TECHNICAL TRAINING SPECIALIST.RIDDLER OPERATOR Work Phone: [facility] 07-03-2022 16:55-0400 Diastolic blood pressure 78 mm[Hg] Gavin Rivero TECHNICAL TRAINING SPECIALIST.RIDDLER OPERATOR Work Phone: [facility] 07-03-2022 16:55-0400 Heart rate 69 /min Gavin Rivero TECHNICAL TRAINING SPECIALIST.RIDDLER OPERATOR Work Phone: [facility] 07-03-2022 16:55-0400 Respiratory rate 18 /min Gavinnoel Rivero TECHNICAL TRAINING SPECIALIST.RIDDLER OPERATOR Work Phone: [facility] 07-03-2022 16:55-0400 SaO2% (BldA) [Mass fraction] 98 % Gavin Josefa TECHNICAL TRAINING SPECIALIST.RIDDLER OPERATOR Work Phone: [facility] 07-03-2022 16:55-0400 Systolic blood pressure 122 mm[Hg] Gavin Rivero TECHNICAL TRAINING SPECIALIST.RIDDLER OPERATOR Work Phone: [facility] 02-17-2022 11:32-0400 Body temperature 99.39 [degF] Nona Maloney APRN.RIDDLER OPERATOR Work Phone: [facility] 02-17-2022 11:32-0400 Body weight 77.2 kg Nona Maloney APRN.RIDDLER OPERATOR Work Phone: [facility] 02-17-2022 11:32-0400 Diastolic blood pressure 68 mm[Hg] Nona Maloney APRN.RIDDLER OPERATOR Work Phone: [facility] 02-17-2022 11:32-0400 Heart rate 82 /min Nona Maloney APRN.RIDDLER OPERATOR Work Phone: [facility] 02-17-2022 11:32-0400 Respiratory rate 20 /min Nona Maloney APRN.RIDDLER OPERATOR Work Phone: [facility] 02-17-2022 11:32-0400 SaO2% (BldA) [Mass fraction] 96 % Nona Maloney APRN.RIDDLER OPERATOR Work Phone: [facility] 02-17-2022 11:32-0400 Systolic blood pressure 122 mm[Hg] Nona Maloney APRN.RIDDLER OPERATOR Work Phone: [facility] 02-10-2022 09:14-0400 Diastolic blood pressure 76 mm[Hg] Mi Nurse Work Phone: [facility] 02-10-2022 09:14-0400 Heart rate 62 /min Mi Nurse Work Phone: [facility] 02-10-2022 09:14-0400 Systolic blood pressure 128 mm[Hg] Mi Nurse Work Phone: [facility] 01-13-2022 08:58-0400 Diastolic blood pressure 64 mm[Hg] Dallas Reed MD Work Phone: [facility] 01-13-2022 08:58-0400 Heart rate 60 /min Dallas Reed MD Work Phone: [facility] 01-13-2022 08:58-0400 Systolic blood pressure 150 mm[Hg] Dallas Reed MD Work Phone: [facility] 01-13-2022 08:47-0400 Body temperature 97.5 [degF] Dallas Reed MD Work Phone: [facility] 01-13-2022 08:47-0400 Body weight 73.94 kg Dallas Reed MD Work Phone: [facility] 01-13-2022 08:47-0400 Respiratory rate 20 /min Dallas Reed MD Work Phone: [facility] 11-12-2021 14:57-0500 Body height 172.[address] Dallas Reed Work Phone: [facility] Work Phone: 11-12-2021 14:57-0500 Body mass index (BMI) [Ratio] 25.4 kg/m2 Dr. Dallas Reed Work Phone: [facility] Work Phone: 11-12-2021 14:57-0500 Body weight 75.[address] Dallas Reed Work Phone: [facility] Work Phone: 11-12-2021 14:57-0500 Diastolic blood pressure 73 mm[Hg] Dr. Dallas Reed Work Phone: [facility] Work Phone: 11-12-2021 14:57-0500 Heart rate 92 /min Dr. Dallas Reed Work Phone: [facility] Work Phone: 11-12-2021 14:57-0500 Respiratory rate 18 /min Dr. Dallas Reed Work Phone: [facility] Work Phone: 11-12-2021 14:57-0500 SaO2% (BldA) [Mass fraction] 99 % Dr. Dallas Reed Work Phone: [facility] Work Phone: 11-12-2021 14:57-0500 Systolic blood pressure 132 mm[Hg] Dr. Dallas Reed Work Phone: [facility] Work Phone: 07-19-2019 11:45-0400 Body Temperature 98.01 [degF] [place], [place] 07-19-2019 11:45-0400 BP Diastolic 94 mm[Hg] [place], [place] 07-19-2019 11:45-0400 BP Systolic 165 mm[Hg] [place], [place] 07-19-2019 11:45-0400 Pulse (Heart Rate) 76 /min [place], [place] 07-19-2019 11:45-0400 Pulse Oximetry 95 % [place] 07-19-2019 11:45-0400 Respiratory Rate 20 /min [place] 07-19-2019 07:14-0400 BMI (Body Mass Index) 28.94 kg/m2 [place] 07-19-2019 07:14-0400 Body weight 88.91 kg [place], [place] 07-19-2019 07:14-0400 Height 175.3 cm [place] Encounters Encounter Date Encounter Type Care Provider Facility Start: 05-18-2025 End: 05-18-2025 Office outpatient visit 25 minutes Darya Borden APRN.CNP Work Phone: [facility] [place] Comment on above: Fatigue, unspecified type (Primary Dx); Essential hypertension; Chronic diastolic CHF (congestive heart failure) (HCC); Anemia, unspecified type; Subclinical hypothyroidism Start: 05-18-2025 End: 05-18-2025 ambulatory DARYA Durán SAIRA Facility:[facility] Start: 05-10-2025 End: 05-10-2025 Patient encounter procedure Mike Jay MANAGER PROJECT MANAGEMENT-C -[facility] Work Phone: Start: 05-10-2025 End: 05-10-[address] Dallas Reed MD Work Phone: -[facility] Start: 05-10-2025 End: 05-10-2025 ambulatory Mike Jay MANAGER PROJECT MANAGEMENT Facility:[facility] Start: 04-30-2025 End: 04-30-[address] Dallas Reed MD Work Phone: -[facility] Start: 04-30-2025 End: 04-30-[address] Dustin Hawk MD -[facility] Work Phone: Start: 04-30-2025 End: 04-30-2025 ambulatory Dustin Hawk Facility:[facility] Start: 04-18-2025 End: 04-18-[address] Dustin Hawk MD -[facility] Work Phone: Start: 04-18-2025 End: 04-18-[address] Dallas Reed MD Work Phone: -[facility] Start: 04-03-2025 End: 04-03-2025 ambulatory Luci Matute RN Canal Structure Operator Management Comment on above: Bi-Weekly Outreach ( Recurring) for Chronic Disease Management, Bi-Weekly Outreach (Recurring) for Chronic Disease Management Start: 03-28-2025 End: 03-28-2025 Refill Dallas Reed MD Work Phone: [facility] [place] Comment on above: Refill Request Start: 03-20-2025 End: 03-20-2025 ambulatory Adriane White RN Canal Structure Operator Management Start: 03-20-2025 End: 03-20-2025 Patient encounter procedure Adriane White RN Canal Structure Operator Management Comment on above: Bi-Weekly Outreach ( Recurring) for Chronic Disease Management Start: 03-19-2025 End: 03-19-2025 Telephone encounter Essenec Romero PA-C Work Phone: [facility] IR Comment on above: 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) Start: 03-16-2025 End: 03-16-2025 Patient encounter status Ana Bobo MD Work Phone: [facility] Start: 03-16-2025 End: 03-16-2025 Subsequent hospital visit by physician Ana Bobo MD Work Phone: [facility] Special Procedures Comment on above: Encounter for prepro cedural laboratory examination (Primary Dx); Type II endoleak of aortic graft Start: 03-16-2025 End: 03-16-2025 ambulatory [facility] Start: 03-16-2025 End: 03-16-2025 Encounter for preprocedural laboratory examination [facility] Start: 03-13-2025 End: 03-13-2025 Follow-up encounter Darya Borden APRN.CNP Work Phone: [facility] [place] Start: 03-12-2025 End: 03-12-2025 Telephone encounter Munira Dickinson RN [facility] Special Procedur es Start: 03-12-2025 End: 03-12-2025 Office outpatient visit 25 minutes Darya Borden APRN.RIDDLER OPERATOR Work Phone: [facility] [place] Comment on above: Subclinical hypothyr oidism (Primary Dx); Fatigue, unspecified type; Type II endoleak of aortic graft; Anemia of chronic disease; Stage 3b chronic kidney disease (HCC); Essential hypertension; Chronic diastolic CHF (congestive heart failure) (HCC) Start: 03-12-2025 End: 03-12-2025 ambulatory DARYA BORDEN Facility:[facility] Start: 03-02-2025 End: 03-02-2025 ambulatory Ardiane White RN Canal Structure Operator Management Start: 03-02-2025 End: 03-02-2025 Patient encounter procedure Adriane White RN Canal Structure Operator Management Comment on above: Bi-Weekly Outreach ( Recurring) for Chronic Disease Management Start: 03-01-2025 End: 03-01-2025 Documentation procedure Ana Bobo MD Work Phone: [facility] Special Procedures Start: 02-27-2025 End: 02-27-2025 Patient encounter procedure Carine PEREZ -[facility] Work Phone: Start: 02-27-2025 End: 02-27-[address] Dallas Reed MD Work Phone: [facility] Work Phone: Start: 02-26-2025 End: 02-26-2025 ambulatory Adriane White RN Canal Structure Operator Management Start: 02-26-2025 End: 02-26-2025 Patient encounter procedure Adriane White RN Canal Structure Operator Management Comment on above: Care Coordination (C lerma review and outreach for chf gdmt care path) Start: 02-19-2025 End: 02-19-2025 ambulatory Adriane White implementation engineerCanal Structure Operator Management Start: 02-19-2025 End: 02-19-2025 Patient encounter procedure Adriane White implementation engineerCanal Structure Operator Management Comment on above: Bi-Weekly Outreach ( Recurring) for Chronic Disease Management Start: 02-15-2025 End: 02-16-2025 Refill Dallas Reed MD Work Phone: [facility] [place] Comment on above: Refill Request Start: 02-14-2025 ambulatory Dustin Hawk Facility:[facility] Start: 02-14-2025 Non-patient / Non-visit Dr. Dustin ramirez MD -[facility] Start: 02-14-2025 End: 02-14-2025 Admission to same day surgery center Dr. Dustin Hawk MD -[employer]/Special Procedures Work Phone: Start: 02-14-2025 End: 02-14-[address] Dallas Reed MD Work Phone: [facility] Work Phone: Start: 02-01-2025 End: 02-01-2025 ambulatory Adriane White RN Canal Structure Operator Management Start: 02-01-2025 End: 02-01-2025 Patient encounter procedure Adriane White RN Canal Structure Operator Management Comment on above: Bi-Weekly Outreach ( Recurring) for Chronic Disease Management Start: 01-18-2025 End: 01-18-2025 Patient encounter procedure Carine Noble PA -Cat Scan [facility] Work Phone: Start: 01-17-2025 End: 01-18-2025 ambulatory Adriane White RN Canal Structure Operator Management Start: 01-17-2025 End: 01-17-2025 Patient encounter procedure Adriane White RN Canal Structure Operator Management Comment on above: Initial enrollment o zoie for Chronic Disease Management Start: 01-12-2025 End: 01-12-2025 Emergency department patient visit Dr. Dallas Reed MD Work Phone: -Emergency Department Work Phone: Start: 12-26-2024 End: 12-26-2024 ambulatory Adriane White RN Canal Structure Operator Management Start: 12-26-2024 End: 12-26-2024 Patient encounter procedure Adriane White RN Canal Structure Operator Management Comment on above: Weekly phone contact (Recurring) for Transitional Care Management Start: 12-25-2024 End: 12-25-[address] Dustin Hawk MD -[facility] Work Phone: Start: 12-25-2024 End: 12-25-2024 ambulatory Dustin Hawk Facility:[facility] Start: 12-22-2024 End: 12-22-2024 ambulatory Ramon Lee PT Work Phone: [facility] Comment on above: Proximal leg weaknes s (Primary Dx); Fall, subsequent encounter; Contusion of scalp, subsequent encounter Start: 12-19-2024 End: 12-19-2024 Patient encounter procedure Adriane White RN Canal Structure Operator Management Comment on above: Weekly phone contact (Recurring) for Transitional Care Management Start: 12-19-2024 End: 12-19-2024 ambulatory Ramontrudy Lee PT Work Phone: [facility] Comment on above: Proximal leg weaknes s (Primary Dx); Fall, subsequent encounter; Contusion of scalp, subsequent encounter Start: 12-15-2024 End: 12-15-2024 ambulatory Ramontrudy Lee PT Work Phone: [facility] Comment on above: Proximal leg weaknes s (Primary Dx); Fall, subsequent encounter; Contusion of scalp, subsequent encounter Start: 12-12-2024 End: 12-12-2024 ambulatory Ramontrudy Lee PT Work Phone: [facility] Comment on above: Proximal leg weaknes s (Primary Dx) Start: 12-11-2024 End: 12-11-2024 ambulatory Adriane White RN Canal Structure Operator Management Start: 12-11-2024 End: 12-11-2024 Patient encounter procedure Adriane White RN Canal Structure Operator Management Comment on above: Weekly phone contact (Recurring) for Transitional Care Management Refill Request Start: 12-11-2024 End: 12-11-2024 Telephone encounter Emily Pedrokanwal [facility] Work Phone: [facility] Comment on above: Medication Question Start: 12-08-2024 End: 12-08-2024 ambulatory DALLAS REED Facility:[facility] Start: 12-08-2024 End: 12-08-2024 Patient encounter procedure Dallas Reed MD Work Phone: [facility] [place] Comment on above: 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); Chronic diastolic CHF (congestive heart failure) (HCC); Stage 3b chronic kidney disease (HCC); Essential hypertension Start: 12-08-2024 End: 12-08-2024 ambulatory Ramon Lee PT Work Phone: [facility] Comment on above: Fall, subsequent enc ounter (Primary Dx); Proximal leg weakness; Contusion of scalp, subsequent encounter Start: 12-06-2024 End: 12-06-2024 ambulatory Ramontrudy Lee PT Work Phone: [facility] Comment on above: Fall, subsequent enc ounter (Primary Dx); Proximal leg weakness; Contusion of scalp, subsequent encounter Start: 12-04-2024 End: 12-05-2024 ambulatory Adriane White RN Canal Structure Operator Management Start: 12-04-2024 End: 12-05-2024 Patient encounter procedure Adriane White implementation engineerCanal Structure Operator Management Comment on above: Initial phone contac t for Transitional Care Management Transition Of Care; Heart Failure (TCM Pharmacy-Hospital discharge 12/01/24) Start: 12-02-2024 End: 12-02-2024 Telephone encounter Dustin Lombardi APRN.RIDDLER OPERATOR Work Phone: Cardiothoracic Comment on above: Patient Question; Me dication Problem Start: 11-28-2024 End: 12-01-2024 Evaluation and management of inpatient RAN NEEL Facility:[facility] Start: 11-28-2024 End: 11-28-2024 Emergency department patient visit Dr. Dallas Reed MD Work Phone: -Emergency Department Work Phone: Start: 11-28-2024 End: 11-28-2024 Subsequent hospital visit by physician [facility] Cat Scan Comment on above: Left lower quadrant abdominal pain [R10.32] Start: 11-28-2024 End: 11-28-2024 ambulatory Tali Maldonado APRN.RIDDLER OPERATOR Work Phone: Critical Care Start: 11-28-2024 End: 12-08-2024 Telephone encounter Dallas Reed MD Work Phone: [facility] [place] Comment on above: Results Start: 11-27-2024 End: 11-27-2024 ambulatory DARYA BORDEN Facility:[facility] Start: 11-27-2024 End: 11-27-2024 ambulatory DALLAS REED Facility:[facility] Start: 11-27-2024 End: 11-27-2024 Patient encounter procedure Gavin Rivero TECHNICAL TRAINING SPECIALIST.RIDDLER OPERATOR Work Phone: [place] [facility] Comment on above: Procedure not ammy d out (Primary Dx) Left lower quadrant abdominal pain (Primary Dx) Start: 11-24-2024 End: 11-24-2024 ambulatory [facility] Comment on above: Fall, subsequent enc ounter (Primary Dx); Proximal leg weakness; Contusion of scalp, subsequent encounter Start: 11-21-2024 End: 11-21-2024 ambulatory Ramon Lee PT [facility] Comment on above: Fall, subsequent enc ounter (Primary Dx); Contusion of scalp, subsequent encounter; Proximal leg weakness Start: 11-09-2024 End: 11-09-2024 ambulatory DALLAS REED Facility:[facility] Start: 11-09-2024 End: 11-09-2024 Office outpatient visit 15 minutes Dallas Reed MD Work Phone: [facility] [place] Comment on above: Contusion of scalp, subsequent encounter (Primary Dx); Fall, subsequent encounter; Proximal leg weakness Start: 11-07-2024 End: 11-07-2024 ambulatory DALLAS REED Facility:[facility] Start: 11-07-2024 End: 11-07-2024 Patient encounter procedure Elbert Hawk APRN.RIDDLER OPERATOR Work Phone: [place] [facility] Comment on above: Abrasion of head, in itial encounter (Primary Dx) Start: 10-02-2024 End: 10-02-2024 Refill Darya Borden APRN.RIDDLER OPERATOR Work Phone: [facility] [place] Comment on above: Refill Request Start: 09-15-2024 End: 09-15-[address] Lara Fonseca MD -[facility] Work Phone: Start: 09-15-2024 End: 09-15-2024 ambulatory Lara Fonseca Facility:[facility] Start: 09-08-2024 End: 09-08-2024 Telephone encounter Darya Borden APRN.RIDDLER OPERATOR Work Phone: [facility] [place] Comment on above: Results Start: 09-07-2024 End: 09-07-2024 ambulatory DARYA BORDEN Facility:[facility] Start: 09-07-2024 End: 09-07-2024 Patient encounter procedure Darya Borden APRN.RIDDLER OPERATOR Work Phone: [facility] [place] Comment on above: Medicare annual well ness visit, subsequent (Primary Dx); Hypothyroidism, unspecified type; TIA (transient ischemic attack); Mixed hyperlipidemia; Primary hypertension; Screening for depression; Encounter for screening examination for other mental health and behavioral disorders; Spigelian hernia; Stage 3b chronic kidney disease (HCC) Start: 08-31-2024 ambulatory Lara Fonseca Facilit y:[facility] Start: 08-31-2024 Non-patient / Non-visit Dr. Garrison Fonseca MD -[facility] Start: 08-31-2024 End: 08-31-2024 Admission to same day surgery center Dr. Lara Fonseca MD -Surgical Day Care Start: 08-31-2024 End: 08-31-2024 ambulatory Lara Fonseca Facility:[facility] Start: 08-28-2024 End: 08-28-2024 ambulatory Fide Goff RN Canal Structure Operator Management Comment on above: CDM (Chronic Disease Management Routine Call/) Start: 08-24-2024 End: 08-24-2024 ambulatory Fide Goff RN Canal Structure Operator Management Comment on above: CDM (Chronic Disease Management Routine Call/) Start: 08-23-2024 ambulatory Lara Fonseca Facilit y:[facility] Start: 08-23-2024 Non-patient / Non-visit Dr. Garrison Fonseca MD -[facility] Start: 08-04-2024 End: 08-04-2024 ambulatory DALLAS REED Facility:[facility] Start: 08-01-2024 End: 08-03-2024 Telephone encounter Dallas Reed MD Work Phone: [facility] [place] Comment on above: Surgical Clearance F orms Start: 07-26-2024 End: 07-26-2024 ambulatory Lara Fonseca Facility:[facility] Start: 07-24-2024 End: 07-24-2024 ambulatory Fide Goff RN Canal Structure Operator Management Comment on above: CDM (Chronic Disease Management Routine Call/) Start: 07-22-2024 End: 07-22-2024 ambulatory Fide Goff RN Canal Structure Operator Management Comment on above: CDM (Chronic Disease Management Routine Call/) Start: 07-17-2024 End: 07-17-2024 ambulatory DALLAS REED Facility:[facility] Start: 07-17-2024 End: 07-17-2024 Office outpatient visit 25 minutes Dallas Reed MD Work Phone: [facility] [place] Comment on above: Spigelian hernia (Pr imary Dx); 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); S/P AAA repair; Pancreatic cyst; Splenomegaly Start: 07-11-2024 End: 07-11-2024 Emergency department patient visit Veenalarisa Nelson Facility:[facility] Start: 07-11-2024 End: 07-11-2024 ambulatory DALLAS REED Facility:[facility] Start: 07-11-2024 End: 07-11-2024 Patient encounter procedure Gavin Shaynacristinmaame VAZQUEZ Work Phone: [place] [facility] Comment on above: Procedure not ammy d out (Primary Dx) Start: 07-07-2024 End: 07-07-2024 ambulatory Dallas Reed Facility:[facility] Start: 06-22-2024 End: 06-23-2024 ambulatory Fide Goff RN Canal Structure Operator Management Comment on above: CDM (Engagement Call ) Start: 06-07-2024 End: 06-07-2024 ambulatory DALLAS REED Facility:[facility] Start: 06-07-2024 End: 06-07-2024 Office outpatient visit 25 minutes Dallas Reed MD Work Phone: [facility] [place] Comment on above: TIA (transient ische raegan attack) (Primary Dx); S/P carotid endarterectomy right; Chronic diastolic CHF (congestive heart failure) (HCC); Stage 3b chronic kidney disease (HCC); Thrombocytopenia (HCC); Abnormal TSH; Mixed hyperlipidemia Start: 05-31-2024 End: 05-31-2024 ambulatory DALLAS REED Facility:[facility] Start: 05-24-2024 ambulatory Donato Longoria Facility:[facility] Start: 05-23-2024 End: 05-24-2024 ambulatory Margy Stark Facility:[facility] Start: 05-23-2024 End: 05-23-2024 Office outpatient visit 25 minutes Adrian Warner PA-C Work Phone: [facility] [place] Comment on above: Dizziness (Primary D x); Chronic diastolic CHF (congestive heart failure) (HCC); BENIGN HYPERTENSION; Weight loss; Fatigue, unspecified type; History of anemia Start: 05-23-2024 End: 05-23-2024 Telephone encounter Dallas Reed MD Work Phone: [facility] [place] Comment on above: Future Appointment Start: 04-07-2024 Telephone encounter Dallas casey MD Work Phone: [facility] [place] Comment on above: Consult Start: 03-22-2024 Refill Darya silva APRN.RIDDLER OPERATOR Work Phone: [facility] [place] Comment on above: Refill Request Start: 03-11-2024 End: 03-11-2024 Patient encounter procedure Prema Agee APRN.RIDDLER OPERATOR Work Phone: [place] [facility] Comment on above: Chronic right should er pain (Primary Dx) Start: 03-07-2024 ambulatory Fide Goff RN Am bulatory Care Management Comment on above: Community Monitoring Outreach Start: 03-06-2024 Telephone encounter Dallas casey MD Work Phone: [facility] [place] Comment on above: fax referral to Dr Gilda cervantes Refill Request Start: 02-29-2024 Telephone encounter Dallas casey MD Work Phone: [facility] [place] Comment on above: Results Start: 02-10-2024 Refill Dallas jaramillo MD Work Phone: [facility] [place] Comment on above: Refill Request Start: 02-09-2024 End: 02-09-2024 Subsequent hospital visit by physician [place] [facility]placed [facility] [place] Work Phone: Radiology Comment on above: Acute pain of both s zhang [M25.511, M25.512] Start: 02-09-2024 End: 02-09-2024 Patient encounter procedure Ayla Carrasquillo PA-C Work Phone: [place] [facility] Comment on above: Acute pain of both s zhang (Primary Dx) Start: 01-17-2024 End: 01-17-2024 Patient encounter procedure Shaun Kowalski MD Work Phone: Vascular Surg Dept Comment on above: 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) (Primary Dx); S/P carotid endarterectomy right; Mixed hyperlipidemia; BPH with urinary obstruction; Stage 3a chronic kidney disease (HCC); Chronic diastolic CHF (congestive heart failure) (HCC) Start: 01-10-2024 End: 01-10-2024 Patient encounter procedure Darya Borden APRN.RIDDLER OPERATOR Work Phone: [facility] [place] Comment on above: Primary hypertension (Primary Dx); Allergic rhinitis, unspecified seasonality, unspecified trigger; Chronic diastolic CHF (congestive heart failure) (HCC); Stage 3a chronic kidney disease (HCC); Other hyperlipidemia; Abdominal aortic aneurysm (AAA) without rupture, unspecified part (HCC) Start: 01-05-2024 Orders Only Shaun Palomino Work Phone: Vascular Surg Dept Comment on above: Encounter for other preprocedural examination (Primary Dx) Start: 01-05-2024 Patient encounter status Shaun Kowalski MD Work Phone: [facility] Start: 12-31-2023 Telephone encounter Shaun mendoza MD Work Phone: Vascular Surg Dept Comment on above: Consult Start: 12-27-2023 End: 12-27-2023 ambulatory [facility] Work Phone: Start: 12-27-2023 End: 12-27-2023 Patient encounter procedure [facility]-Cat Scan, [facility] Work Phone: Start: 11-28-2023 ambulatory Fide Goff RN Am bulatory Care Management Comment on above: Community Monitoring Outreach Start: 08-10-2023 End: 08-10-2023 Patient encounter procedure Darya Singh APRN.RIDDLER OPERATOR Work Phone: [facility] [place] Comment on above: Medicare annual well ness visit, subsequent (Primary Dx) Start: 08-03-2023 End: 08-03-[address] Dallas Reed Work Phone: [facility] Work Phone: Start: 08-03-2023 End: 08-03-[address] Dallas Reed Work Phone: [facility] Work Phone: Start: 06-25-2023 Refill Dallas jaramillo MD Work Phone: [facility] [place] Comment on above: Refill Request Start: 06-25-2023 End: 06-25-[address] Dallas Reed Work Phone: [facility] Work Phone: Start: 05-26-2023 End: 05-26-[address] Dallas Reed Work Phone: [facility] Work Phone: Start: 05-26-2023 End: 05-26-[address] Dallas Reed Work Phone: [facility] Work Phone: Start: 05-20-2023 ambulatory Fide Goff RN Am bulatory Care Management Comment on above: Community Monitoring Outreach Start: 04-19-2023 End: 04-19-[address] Dallas Reed Work Phone: [facility] Work Phone: Start: 04-19-2023 End: 04-19-[address] Dallas Reed Work Phone: [facility] Work Phone: Start: 04-16-2023 End: 04-16-2023 Patient encounter procedure Dallas Reed MD Work Phone: [facility] [place] Comment on above: Primary hypertension (Primary Dx); S/P AAA repair Start: 04-08-2023 Non-patient / Non-visit Dr. Ilana Reed Work Phone: [facility] Start: 04-07-2023 Non-patient / Non-visit Dr. Ilana Reed Work Phone: [facility] Start: 04-07-2023 End: 04-08-2023 Evaluation and management of inpatient Dr. Dallas Reed Work Phone: [facility]-Progressive Care Unit Work Phone: Start: 04-01-2023 End: 04-01-2023 Non-patient / Non-visit Dr. Dallas Reed Work Phone: [facility] Work Phone: Start: 03-05-2023 End: 03-05-[address] Dallas Reed Work Phone: [facility] Work Phone: Start: 03-04-2023 End: 03-04-2023 Patient encounter procedure Dallas Reed MD Work Phone: [facility] [place] Comment on above: Primary hypertension (Primary Dx); Abdominal aortic aneurysm (AAA) without rupture, unspecified part (HCC) Start: 02-25-2023 End: 02-25-[address] Dallas Reed Work Phone: [facility] Work Phone: Start: 02-23-[address] Dallas Reed Work Phone: [facility] Start: 02-23-2023 End: 02-23-[address] Dallas Reed Work Phone: [facility] Work Phone: Start: 02-01-2023 End: 02-01-2023 Office outpatient visit 25 minutes Adrian Warner PA-C Work Phone: [facility] Comment on above: Acute maxillary sinu sitis, recurrence not specified (Primary Dx); Acute otitis media, right Start: 01-19-2023 Telephone encounter Lisa Rodriguez MD Work Phone: [facility] [place] Comment on above: Medication Authoriza tion Start: 01-19-2023 Non-patient / Non-visit Dr. Ilana Reed Work Phone: [facility] Start: 01-19-2023 End: 01-19-[address] Dallas Reed Work Phone: [facility] Work Phone: Start: 01-19-2023 End: 01-19-[address] Dallas Reed Work Phone: [facility]-Cardiovascular Services Start: 01-18-2023 Orders Only Lisa Rodriguez MD Work Phone: [facility] [place] Start: 01-15-2023 End: 01-15-2023 Subsequent hospital visit by physician Lisa Rodriguez MD Work Phone: Ambulatory Surgery Comment on above: Diarrhea, unspecifie d type [R19.7] Start: 01-13-2023 ambulatory Lisa Rodriguez MD Work Phone: Ambulatory Surgery Start: 01-07-2023 End: 01-07-2023 Patient encounter procedure Lisa Rodriguez MD Work Phone: [facility] [place] Comment on above: Diarrhea, unspecifie d type Start: 12-30-2022 End: 12-30-2022 Patient encounter procedure Dallas Reed MD Work Phone: [facility] [place] Comment on above: Diarrhea, unspecifie d type (Primary Dx); Chronic diastolic CHF (congestive heart failure) (HCC); Abdominal aortic aneurysm (AAA) without rupture, unspecified part (HCC) Start: 07-03-2022 End: 07-03-2022 Patient encounter procedure Gavinnoel Rivero TECHNICAL TRAINING SPECIALIST.RIDDLER OPERATOR Work Phone: [facility] [facility] Comment on above: Loose stools (Primar y Dx) Start: 05-26-2022 Refill Dallas jaramillo MD Work Phone: [facility] [place] Comment on above: Refill Request Start: 03-11-2022 Refill Dallas jaramillo MD Work Phone: [facility] [place] Comment on above: Refill Request Start: 02-18-2022 Telephone encounter Elsie Meera wallace TECHNICAL TRAINING SPECIALIST.RIDDLER OPERATOR Work Phone: [facility] Comment on above: Results Start: 02-17-2022 End: 02-17-2022 Patient encounter procedure Nona Haider TECHNICAL TRAINING SPECIALIST.RIDDLER OPERATOR Work Phone: [facility] [facility] Comment on above: Cough (Primary Dx); Acute upper respiratory infection, unspecified Start: 02-10-2022 End: 02-10-2022 Nursing evaluation of patient and report Mi Nurse Work Phone: [facility] Comment on above: BENIGN HYPERTENSION (Primary Dx) Start: 02-09-2022 ambulatory Denver Elizalde RN Am bulatory Care Management Comment on above: Community Monitoring Outreach (CHF/ CKD Telephonic Outreach) Start: 02-06-2022 ambulatory Denver Elizalde RN Am [facility] Comment on above: Community Monitoring Outreach (CHF/ CKD CDM Outreach) Start: 01-13-2022 End: 01-13-2022 Patient encounter procedure Dallas Reed MD Work Phone: [facility] [place] Comment on above: Stage 3a chronic kid james disease (HCC) (Primary Dx); Chronic diastolic CHF (congestive heart failure) (HCC); Abdominal aortic aneurysm (AAA) without rupture (HCC); BENIGN HYPERTENSION; Other hyperlipidemia Start: 01-12-2022 Non-patient / Non-visit Dr. Ilana Reed Work Phone: [facility] Start: 01-12-2022 End: 01-12-[address] Dallas Reed Work Phone: [facility] Start: 12-08-2021 ambulatory Denver Elizalde RN Am [facility] Care Management Comment on above: Community Monitoring Outreach (CHF / CKD CDM Outreach ) Start: 11-12-2021 End: 11-12-[address] Dallas Reed Work Phone: [facility] [facility] Start: 07-19-2019 End: 07-19-2019 Subsequent hospital visit by physician Yariel Blas Work Phone: [facility] General Surgery Comment on above: Pain in right hip Start: 03-10-2018 Ambulatory [facility] Facility :[facility] Start: 01-14-2018 End: 01-14-2018 Ambulatory [facility] Facility:[facility] Start: 01-08-[address] Dallas Reed Work Phone: [facility] Start: 09-09-2017 End: 09-09-2017 Ambulatory [facility] Facility:[facility] Start: 01-09-2015 End: 03-15-2018 Patient encounter status Darya Borden APRN.CNP Work Phone: [facility] Procedures Date Procedure Procedure Detail Performing Clinician Start: 04-30-2025 Computed tomography of abdomen and pelvis with contrast Dr. Dallas Reed MD Work Phone: Start: 03-16-2025 Basic metabolic pane l calcium total Ana Bobo MD Work Phone: Start: 03-12-2025 Thyrotropin [Units/volume] in Serum or Plasma Ana Bobo MD Work Phone: Start: 02-14-[address] Dallas Reed MD Work Phone: Start: 01-18-2025 Computed tomography of abdomen and pelvis with contrast Dr. Dallas Reed MD Work Phone: Start: 01-12-[address] Dallas Reed MD Work Phone: Start: 01-12-2025 Computed tomography of abdomen and pelvis with intravenous contrast Dr. Dallas Reed MD Work Phone: Start: 11-28-2024 Antibody screen DARYA PAYNE Comment on above: Order Comment: Speci men Type: BLOOD SPECIMENOrdering Facility: [facility] Address: [address] [place] [address] Performed By: #### T SCR ####CC MAIN BLOOD BANKCLIA [id number] [facility] [id number] [address] [place] Start: 11-28-2024 Urnls dip stick/tabl et reagent auto microscopy Dr. Dallas Reed MD Work Phone: Start: 11-28-2024 Computed tomography of abdomen and pelvis with intravenous contrast Dr. Dallas Reed MD Work Phone: Start: 11-28-[address] Dallas Reed MD Work Phone: Start: 11-28-2024 Ct abdomen & pelvis w/contrast material Darya Borden TECHNICAL TRAINING SPECIALIST.RIDDLER OPERATOR Work Phone: Start: 11-27-2024 Urnls dip stick/tabl et rgnt auto w/o microscopy Darya Borden TECHNICAL TRAINING SPECIALIST.RIDDLER OPERATOR Work Phone: Start: 09-07-2024 Adult depression screening assessment Darya Borden APRN.RIDDLER OPERATOR Work Phone: Start: 02-09-2024 Radex shoulder compl ete minimum 2 views Ayla Carrasquillo PA-C Work Phone: Start: 12-27-2023 Computed tomography of abdomen and pelvis with contrast Start: 05-26-2023 Computed tomography angiography of abdominal and/or pelvic blood vessel Dr. Dallas Reed Work Phone: Start: 04-07-2023 Repair of aneurysm o f abdominal aorta with graft Dr. Dallas Reed Work Phone: Start: 04-01-2023 Plain chest X-ray Dr. Aga Reed Work Phone: Start: 02-25-2023 Computed tomography angiography of abdominal and/or pelvic blood vessel Dr. Dallas Reed Work Phone: Start: 01-15-2023 Level iv surg pathol ogy gross&microscopic exam Lisa Rodriguez MD Work Phone: Start: 01-15-2023 Colonoscopy flx dx w/collj spec when pfrmd Lisa Rodriguez MD Work Phone: Start: 01-20-2021 History of carotid endarterectomy S/P carotid endarterectomy right Denver Elizalde RN Start: 07-19-2019 OPERATIVE REPORT 3m Sca nning Start: 07-19-2019 Radiological guidanc e prq drg w/plmt cath rs&i Yariel Blas Work Phone: Start: 07-19-2019 Basic metabolic pane l calcium total Brent Quevedo Work Phone: History of carotid endarterectomy S/P carotid endarterectomy right Shaun Kowalski MD Work Phone: History of carotid endarterectomy S/P carotid endarterectomy right Dallas Reed MD Work Phone: History of repair of inguinal hernia History of inguinal hernia repair Dr. Dallas Reed Work Phone: Comment on above: laparascopic Plan of Treatment Date Care Activity Detail Author Start: 03-16-2028 Diabetes Screening Diabetes Screening [facility] Start: 12-02-2027 Diabetes Screening Diabetes Screening [facility] Start: 11-30-2027 Diabetes Screening Diabetes Screening [facility] Start: 11-29-2027 Diabetes Screening Diabetes Screening [facility] Start: 11-28-2027 Diabetes Screening Diabetes Screening [facility] Start: 08-04-2027 Diabetes Screening Diabetes Screening [facility] Start: 05-31-2027 Diabetes Screening Diabetes Screening [facility] Start: 08-30-2026 Diabetes Screening Diabetes Screening [facility] Start: 03-16-2026 Creatinine measurement Creatinine Level [facility] Start: 03-16-2026 Potassium measurement Potassium Level [facility] Start: 03-12-2026 Thyroid stimulating hormone measurement TSH Level [facility] Start: 02-04-2026 DIABETES SCREEN DIABETES SCREEN [facility] Start: 02-04-2026 Diabetes Screening Diabetes Screening [facility] Start: 09-12-2025 End: 09-12-2025 Patient encounter procedure 09/12/2025 8:40 AM EST Office Visit [facility] [place] [address] [place] [address] Dallas Reed MD [address] [place] [address] medicare wellness 6 months [facility] [place] Comment on above: medicare wellness 6 months Start: 09-07-2025 Anxiety Screening Anxiety Screening [facility] Start: 09-07-2025 Depression Screening Depression Screening [facility] Start: 09-07-2025 Medicare Annual Wellness Visit Medicare Annual Wellness Visit [facility] Start: 09-07-2025 RSV Vaccine (1 - 1-dose 75+ series) RSV Vaccine (1 - 1-dose 75+ series) [facility] Comment on above: Postponed from 01/03/2015 (Declined at t his time) Start: 09-07-2025 Shingrix Vaccine (2 of 3) Shingrix Vaccine (2 of 3) [facility] Comment on above: Postponed from 10/13/2014 (Declined at t his time) Start: 09-07-2025 Urine microalbumin profile DTaP,Tdap,Td Vaccine (1 - Tdap) [facility] Comment on above: Postponed from 07/08/2005 (Declined at t his time) Start: 08-20-2025 End: 03-19-2026 CT Abdomen and Pelvis W contrast IV CTA abdomen pelvis angiogram w and/or wo IV contrast 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 Expected: 08/20/2025, Expires: 03/19/2026 [facility] [employer] [facility] Work Phone: Comment on above: Expected: 08/20/2025, Expires: Start: 07-17-2025 Covid-19 Vaccine () Covid-19 Vaccine () [facility] Comment on above: Postponed from 05/21/2024 (Declined at t his time) Start: 07-17-2025 DIABETES SCREEN DIABETES SCREEN [facility] Start: 06-11-2025 End: 06-11-2025 Patient encounter procedure 06/11/2025 8:40 AM EDT Office Visit [facility] [place] [address] [place] [address] Darya Borden, TECHNICAL TRAINING SPECIALIST.RIDDLER OPERATOR [address] [place] [address] follow up 4 weeks [facility] [place] Comment on above: follow up 4 weeks Start: 05-21-2025 Influenza vaccination [facility] Start: 05-18-2025 End: 08-17-2025 Cobalamin (Vitamin B12) [Mass/volume] in Serum or Plasma [facility] Comment on above: Expected: 05/18/2025, Expires: Start: 05-18-2025 End: 08-17-2025 Ferritin [Mass/volume] in Serum or Plasma [facility] Comment on above: Expected: 05/18/2025, Expires: Start: 05-18-2025 End: 08-17-2025 Folate [Mass/volume] in Serum or Plasma [facility] Comment on above: Expected: 05/18/2025, Expires: Start: 05-18-2025 End: 08-17-2025 Iron and Iron binding capacity panel - Serum or Plasma [facility] Comment on above: Expected: 05/18/2025, Expires: Start: 05-18-2025 End: 08-17-2025 Thyrotropin [Units/volume] in Serum or Plasma [facility] Work Phone: Comment on above: Expected: 05/18/2025, Expires: Start: 03-19-2025 Influenza vaccination Influenza Vaccine (#1) [facility] Comment on above: Postponed from 05/21/2024 (Declined at t his time) Start: 03-16-2025 End: 03-16-2025 Patient encounter procedure 03/16/2025 11:00 AM EDT Appointment [facility] [address] [place] [id number] [facility] Start: 03-12-2025 End: 06-11-2025 Thyrotropin [Units/volume] in Serum or Plasma [facility] Work Phone: Comment on above: Expected: 03/12/2025, Expires: Start: 03-12-2025 End: 06-11-2025 Thyroxine (T4) free [Mass/volume] in Serum or Plasma [facility] Comment on above: Expected: 03/12/2025, Expires: Start: 03-12-2025 End: 03-12-2025 Patient encounter procedure 03/12/2025 8:40 AM EDT Office Visit [facility] [place] [address] [place] [address] Darya Borden, TECHNICAL TRAINING SPECIALIST.RIDDLER OPERATOR [address] [place] [address] follow up 6 months [facility] [place] Comment on above: follow up 6 months Start: 03-01-2025 End: 03-01-2026 Guidance for embolization of Vessels IR Embolization 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 Expected: 03/01/2025, Expires: 03/01/2026 [facility] Work Phone: Comment on above: Expected: 03/01/2025, Expires: Start: 02-14-2025 Elevation of head of bed [facility] Start: 02-14-2025 Patient education [facility] Start: 02-14-2025 End: 02-14-2025 Taking patient vital signs [facility] Start: 02-14-2025 Wound care [facility] Start: 02-14-2025 End: 02-14-2025 [facility] Start: 02-14-2025 Bedrest [facility] Start: 02-14-2025 End: 02-14-2025 Notification of physician [facility] Start: 02-14-2025 Patient discharge [facility] Start: 02-14-2025 Provision of activity privileges [facility] Start: 02-14-2025 End: 02-14-2025 Pulse taking [facility] Start: 01-13-2025 DIABETES SCREEN DIABETES SCREEN [facility] Start: 01-12-2025 [facility] Start: 12-22-2024 End: 12-22-2024 ambulatory 12/22/2024 9:15 AM EDT OT/PT/Speech Visit [facility] [address] [place] [facility] [address] aRmon Lee, PT [address] [facility] [place] [address] S00.03XD (ICD-10-CM) - Contusion of scalp, subsequent encounter [facility] Comment on above: S00.03XD (ICD-10-CM) - Contusion of scal p, subsequent encounter Start: 12-19-2024 End: 12-19-2024 ambulatory 12/19/2024 9:15 AM EDT OT/PT/Speech Visit [facility] [address] [place] [address] Ramon Lee, PT [address] [facility] [place] [address] S00.03XD (ICD-10-CM) - Contusion of scalp, subsequent encounter [facility] Comment on above: S00.03XD (ICD-10-CM) - Contusion of scal p, subsequent encounter Start: 12-15-2024 End: 12-15-2024 ambulatory 12/15/2024 9:15 AM EDT OT/PT/Speech Visit [facility] [address] [place] [address] Ramon Lee, PT [address] [place] [address] S00.03XD (ICD-10-CM) - Contusion of scalp, subsequent encounter [facility] Comment on above: S00.03XD (ICD-10-CM) - Contusion of scal p, subsequent encounter Start: 12-12-2024 End: 12-12-2024 ambulatory 12/12/2024 9:15 AM EDT OT/PT/Speech Visit [facility] [address] [place] [address] Ramon Lee, PT [address] [place] [address] S00.03XD (ICD-10-CM) - Contusion of scalp, subsequent encounter [facility] Comment on above: S00.03XD (ICD-10-CM) - Contusion of scal p, subsequent encounter Start: 12-08-2024 End: 12-08-2024 Patient encounter procedure 12/08/2024 11:40 AM EDT Office Visit [facility] [place] [address] [place] [address] Dallas Reed MD [address] [place] [address] hospital discharge follow up. needs to see PCP or WEN in 7 days. [facility] [place] Comment on above: hospital discharge follow up. needs to s ee PCP or WEN in 7 days. Start: 12-08-2024 End: 12-08-2024 ambulatory 12/08/2024 9:15 AM EDT OT/PT/Speech Visit [facility] [address] [place] [address] Ramon Lee, PT [address] [place] [address] S00.03XD (ICD-10-CM) - Contusion of scalp, subsequent encounter [facility] Comment on above: S00.03XD (ICD-10-CM) - Contusion of scal p, subsequent encounter Start: 12-07-2024 End: 03-08-2025 Thyrotropin [Units/volume] in Serum or Plasma THYROID STIMULATING HORMONE Lab Routine Subclinical hypothyroidism Expected: 12/07/2024 (Approximate), Expires: 03/08/2025 [facility] Work Phone: Comment on above: Expected: 12/07/2024 (Approximate), Expi res: 03/08/2025 Start: 12-06-2024 End: 12-06-2024 ambulatory 12/06/2024 9:15 AM EDT OT/PT/Speech Visit [facility] [address] [facility], [place] [address] Ramon Lee, PT [address] [place], [place] [id number] S00.03XD (ICD-10-CM) - Contusion of scalp, subsequent encounter [facility] Comment on above: S00.03XD (ICD-10-CM) - Contusion of scal p, subsequent encounter Start: 11-29-2024 End: 11-29-2024 ambulatory 11/29/2024 7:45 AM EDT OT/PT/Speech Visit [facility] [address] [facility], [place] [id number] Ramon Lee, PT [address] [place], [place] [id number] S00.03XD (ICD-10-CM) - Contusion of scalp, subsequent encounter [facility] Comment on above: S00.03XD (ICD-10-CM) - Contusion of scal p, subsequent encounter Start: 11-28-2024 [facility] Start: 11-28-2024 End: 11-28-2024 Patient encounter procedure Cat Scan Comment on above: LLQ abdominal pain [R10.32] Start: 11-24-2024 End: 11-24-2024 ambulatory 11/24/2024 7:45 AM EST OT/PT/Speech Visit [facility] [address] [facility], [place] [id number] Ramon Lee, PT [address] [place] [address] S00.03XD (ICD-10-CM) - Contusion of scalp, subsequent encounter [facility] Comment on above: S00.03XD (ICD-10-CM) - Contusion of scal p, subsequent encounter Start: 11-21-2024 End: 11-21-2024 ambulatory 11/21/2024 10:45 AM EST OT/PT/Speech Visit [facility] [address] [place] [address] Ramon Lee, PT [address] [place] [address] x: Contusion of scalp, subsequent encounter [S00.03XD]; Fall, subsequent encounter [W19.XXXD]; Proximal leg weakness [R29.898] [facility] Comment on above: x: Contusion of scalp, subsequent encoun ter [S00.03XD]; Fall, subsequent encounter [W19.XXXD]; Proximal leg weakness [R29.898] Start: 11-09-2024 End: 11-09-2024 Patient encounter procedure 11/09/2024 2:00 PM EST Office Visit [facility] [place] [address] [place] [address] Dallas Reed MD [address] [place] [address] express care follow up-hit head [facility] [place] Comment on above: express care follow up-hit head Start: 09-20-2024 Advance Directive Discussion Advance Directive Discussion [facility] Start: 09-07-2024 End: 12-07-2024 Thyroxine (T4) free [Mass/volume] in Serum or Plasma [facility] Work Phone: Comment on above: Expected: 09/07/2024, Expires: Start: 09-07-2024 End: 12-07-2024 Triiodothyronine (T3) [Mass/volume] in Serum or Plasma [facility] Comment on above: Expected: 09/07/2024, Expires: Start: 09-07-2024 End: 09-07-2024 Patient encounter procedure 09/07/2024 10:00 AM EST Office Visit [facility] [place] [address] [place] [address] Darya Borden, TECHNICAL TRAINING SPECIALIST.RIDDLER OPERATOR [address] [place] [address] Medicare Wellness ; routine follow up [facility] [place] Comment on above: Medicare Wellness ; routine follow up Start: 08-31-2024 [facility] Start: 08-31-2024 Anesthesia hernia repair upper abdomen nos ANES HRNA RPR UPR ABD NOS [facility] Start: 08-31-2024 RPR AA HRN 1ST < 3 CM RDC RPR AA HRN 1ST < 3 CM RDC [facility] Start: 08-31-2024 Patient discharge [facility] Start: 08-14-2024 End: 08-14-2024 Patient encounter procedure 08/14/2024 12:00 PM EST Office Visit [facility] [place] [address] [place] [address] Dallas Reed MD [address] [place] [address] Medicare Wellness ; routine follow up [facility] [place] Comment on above: Medicare Wellness ; routine follow up Start: 08-10-2024 Covid-19 Vaccine (#1) Covid-19 Vaccine (#1) [facility] Comment on above: Postponed from 1940 (Declined at t his time) Start: 08-10-2024 Covid-19 Vaccine () Covid-19 Vaccine () [facility] Comment on above: Postponed from 05/21/2023 (Declined at t his time) Start: 08-10-2024 RSV Vaccine (1 - 1-dose 60+ series) RSV Vaccine (1 - 1-dose 60+ series) [facility] Comment on above: Postponed from 2000 (Declined at t his time) Start: 08-10-2024 RSV Vaccine (1 - 1-dose 75+ series) RSV Vaccine (1 - 1-dose 75+ series) [facility] Comment on above: Postponed from 01/03/2015 (Declined at t his time) Start: 08-10-2024 Shingrix Vaccine (2 of 3) Shingrix Vaccine (2 of 3) [facility] Comment on above: Postponed from 10/13/2014 (Declined at t his time) Start: 08-10-2024 Urine microalbumin profile DTaP,Tdap,Td Vaccine (1 - Tdap) [facility] Comment on above: Postponed from 07/08/2005 (Declined at t his time) Start: 07-19-2024 End: 10-18-2024 CBC panel - Blood by Automated count COMPLETE BLOOD COUNT Lab Routine Thrombocytopenia (HCC) Expected: 07/19/2024, Expires: 10/18/2024 [facility] Work Phone: Comment on above: Expected: 07/19/2024, Expires: Start: 07-19-2024 End: 10-18-2024 Comprehensive metabolic 2000 panel - Serum or Plasma COMPREHENSIVE METABOLIC PANEL Lab Routine Stage 3b chronic kidney disease (HCC) Expected: 07/19/2024, Expires: 10/18/2024 [facility] Comment on above: Expected: 07/19/2024, Expires: Start: 07-19-2024 End: 10-18-2024 Lipid 1996 panel - Serum or Plasma LIPID PANEL BASIC Lab Routine Mixed hyperlipidemia Expected: 07/19/2024, Expires: 10/18/2024 [facility] Comment on above: Expected: 07/19/2024, Expires: Start: 07-19-2024 End: 10-18-2024 Thyrotropin [Units/volume] in Serum or Plasma THYROID STIMULATING HORMONE Lab Routine Abnormal TSH Mixed hyperlipidemia Expected: 07/19/2024, Expires: 10/18/2024 [facility] Comment on above: Expected: 07/19/2024, Expires: Start: 07-19-2024 End: 07-19-2024 ambulatory 07/19/2024 7:30 AM EDT Results Only [facility] [address] [place] [address] [facility] Start: 07-02-2024 DIABETES SCREEN DIABETES SCREEN [facility] Start: 05-23-2024 End: 08-22-2024 CBC W Auto Differential panel - Blood COMPLETE BLOOD COUNT AND DIFFERENTIAL Lab Routine BENIGN HYPERTENSION Weight loss Fatigue, unspecified type Expected: 05/23/2024, Expires: 08/22/2024 [facility] Work Phone: Comment on above: Expected: 05/23/2024, Expires: Start: 05-23-2024 End: 08-22-2024 Cobalamin (Vitamin B12) [Mass/volume] in Serum or Plasma VITAMIN B12 Lab Routine BENIGN HYPERTENSION Weight loss Fatigue, unspecified type History of anemia Expected: 05/23/2024, Expires: 08/22/2024 [facility] Comment on above: Expected: 05/23/2024, Expires: Start: 05-23-2024 End: 08-22-2024 Comprehensive metabolic 2000 panel - Serum or Plasma COMPREHENSIVE METABOLIC PANEL Lab Routine BENIGN HYPERTENSION Weight loss Fatigue, unspecified type Expected: 05/23/2024, Expires: 08/22/2024 [facility] Comment on above: Expected: 05/23/2024, Expires: Start: 05-23-2024 End: 08-22-2024 Ferritin [Mass/volume] in Serum or Plasma FERRITIN Lab Routine BENIGN HYPERTENSION Weight loss Fatigue, unspecified type History of anemia Expected: 05/23/2024, Expires: 08/22/2024 [facility] Comment on above: Expected: 05/23/2024, Expires: Start: 05-23-2024 End: 08-22-2024 Iron and Iron binding capacity panel - Serum or Plasma IRON AND TIBC Lab Routine BENIGN HYPERTENSION Weight loss Fatigue, unspecified type History of anemia Expected: 05/23/2024, Expires: 08/22/2024 [facility] Comment on above: Expected: 05/23/2024, Expires: Start: 05-23-2024 End: 08-22-2024 Thyrotropin [Units/volume] in Serum or Plasma THYROID STIMULATING HORMONE Lab Routine BENIGN HYPERTENSION Fatigue, unspecified type Expected: 05/23/2024, Expires: 08/22/2024 [facility] Comment on above: Expected: 05/23/2024, Expires: Start: 05-23-2024 End: 08-22-2024 Urinalysis complete panel - Urine URINALYSIS, WITH MICROSCOPIC Lab Routine Weight loss Fatigue, unspecified type Expected: 05/23/2024, Expires: 08/22/2024 [facility] Comment on above: Expected: 05/23/2024, Expires: Start: 05-21-2024 Covid-19 Vaccine ( season) Covid-19 Vaccine () [facility] Start: 05-21-2024 Covid-19 Vaccine () Covid-19 Vaccine () [facility] Start: 05-21-2024 Influenza vaccination [facility] Start: 05-15-2024 End: 05-15-2024 Patient encounter procedure 05/15/2024 11:00 AM EDT Office Visit Orthopaedics [address] [place] [address] Izzy Guadalupe PA-C [address] [place] [address] Acute pain of both shoulders [M25.511, M25.512] Orthopaedics Comment on above: Acute pain of both shoulders [M25.511, M 25.512] Start: 01-17-2024 End: 01-17-2024 Patient encounter procedure [facility] Surg Dept Comment on above: Endoleak aortic graft Start: 12-27-2023 Following clinical pathway protocol [facility] Start: 10-16-2023 Influenza vaccination [facility] Comment on above: Postponed from 05/21/2023 (Declined at t his time) Start: 09-20-2023 Advance Directive Discussion Advance Directive Discussion [facility] Start: 09-20-2023 Behavioral Health Screening Behavioral Health Screening [facility] Start: 09-20-2023 Depression Assessment Depression Assessment [facility] Start: 07-15-2023 COVID-19 VACCINE (#1) COVID-19 VACCINE (#1) [facility] Comment on above: Postponed from 1940 (Declined at t his time) Start: 07-15-2023 SHINGRIX VACCINE (2 of 3) SHINGRIX VACCINE (2 of 3) [facility] Comment on above: Postponed from 10/13/2014 (Declined at t his time) Start: 07-15-2023 Urine microalbumin profile [facility] Comment on above: Postponed from 07/08/2005 (Declined at t his time) Start: 05-26-2023 Following clinical pathway protocol [facility] Start: 05-21-2023 Influenza vaccination [facility] Start: 04-08-2023 Patient discharge [facility] Start: 04-08-2023 Urinary bladder residual urine study [facility] Start: 04-08-2023 [facility] Start: 04-08-2023 Removal of urinary catheter [facility] Start: 04-07-2023 Oxygen therapy [facility] Start: 04-07-2023 Following clinical pathway protocol [facility] Start: 04-07-2023 End: 04-07-2023 Bedrest [facility] Start: 04-07-2023 Elevation of head of bed [facility] Start: 04-07-2023 Incentive spirometry [facility] Start: 04-07-2023 Insertion of catheter into artery [facility] Start: 04-07-2023 Measuring intake and output [facility] Start: 04-07-2023 Neurovascular assessment [facility] Start: 04-07-2023 Nil by mouth [facility] Start: 04-07-2023 Notification of physician [facility] Start: 04-07-2023 Patient education [facility] Start: 04-07-2023 Tobacco use cessation education [facility] Start: 04-07-2023 Vital signs measurements [facility] Start: 04-07-2023 [facility] Start: 04-07-2023 [facility] Start: 04-07-2023 Admission procedure [facility] Start: 09-20-2022 ADVANCE DIRECTIVE DISCUSSION ADVANCE DIRECTIVE DISCUSSION [facility] Start: 09-20-2022 DEPRESSION ASSESSMENT DEPRESSION ASSESSMENT [facility] Start: 07-15-2022 End: 09-14-2022 CBC panel - Blood by Automated count CBC Lab Routine Stage 3a chronic kidney disease (HCC) Expected: 07/15/2022, Expires: 09/14/2022 [facility] Work Phone: Comment on above: Expected: 07/15/2022, Expires: 2 Start: 07-15-2022 End: 09-14-2022 Comprehensive metabolic 2000 panel - Serum or Plasma COMP METABOLIC PANEL Lab Routine Chronic diastolic CHF (congestive heart failure) (HCC) Expected: 07/15/2022, Expires: 09/14/2022 [facility] Work Phone: Comment on above: Expected: 07/15/2022, Expires: 2 Start: 07-15-2022 End: 09-14-2022 LIPID PANEL BASIC LIPID PANEL BASIC Lab Routine Other hyperlipidemia Expected: 07/15/2022, Expires: 09/14/2022 [facility] Work Phone: Comment on above: Expected: 07/15/2022, Expires: 2 Start: 07-09-2022 COVID-19 VACCINE (#1) COVID-19 VACCINE (#1) [facility] Comment on above: Postponed from 01/03/1945 (Declined at t his time) Postponed from 07/05 (Declined at this time) Start: 07-09-2022 COVID-19 VACCINE (1) COVID-19 VACCINE (1) [facility] Comment on above: Postponed from 01/03/1945 (Declined at t his time) Start: 07-09-2022 SHINGRIX VACCINE (2 of 3) SHINGRIX VACCINE (2 of 3) [facility] Comment on above: Postponed from 10/13/2014 (Declined at t his time) Start: 07-09-2022 Urine microalbumin profile DTAP,TDAP,TD (1 - Tdap) [facility] Comment on above: Postponed from 07/08/2005 (Declined at t his time) Start: 05-21-2022 Influenza vaccination [facility] Start: 03-19-2022 Influenza vaccination INFLUENZA (#1) [facility] Comment on above: Postponed from 05/21/2021 (Declined at t his time) Start: 02-17-2022 End: 03-03-2022 Influenza virus A and B RNA and SARS-CoV-2 (COVID-19) N gene panel - Respiratory specimen by ELIZABETH with probe detection COVID WITH FLUA+B, ROUTINE Microbiology Routine Cough Acute upper respiratory infection, unspecified Expected: 02/17/2022, Expires: 03/03/2022 [facility] Work Phone: Comment on above: Expected: 02/17/2022, Expires: 2 Start: 01-13-2022 End: 03-15-2022 Basic metabolic 2000 panel - Serum or Plasma [facility] Work Phone: Comment on above: Expected: 01/13/2022, Expires: 2 Start: 09-20-2021 ADVANCE DIRECTIVE DISCUSSION ADVANCE DIRECTIVE DISCUSSION [facility] Start: 09-20-2021 DEPRESSION ASSESSMENT DEPRESSION ASSESSMENT [facility] Start: 07-19-2020 Creatinine measurement Creatinine Level [facility] Start: 07-19-2020 Potassium measurement Potassium Level [facility] Start: 07-04-2019 Annual Wellness Visit (AWV) Annual Wellness Visit (AWV) [place] Start: 05-21-2019 Influenza vaccination Flu vaccine (#1) [place] Start: 01-03-2015 RSV Immunization for Adults (1 - 1-dose 75+ series) RSV Immunization for Adults (1 - 1-dose 75+ series) [facility] Start: 01-03-2015 RSV Vaccine (1 - 1-dose 75+ series) RSV Vaccine (1 - 1-dose 75+ series) [facility] Start: 10-13-2014 Shingles Vaccine (2 of 3) Shingles Vaccine (2 of 3) [place] Start: 10-13-2014 Shingrix Vaccine (2 of 3) Shingrix Vaccine (2 of 3) [facility] Start: 10-13-2014 Zoster Vaccines (2 of 3) Zoster Vaccines (2 of 3) [facility] Start: 07-08-2005 DTaP/Tdap/Td Vaccines (1 - Tdap) DTaP/Tdap/Td Vaccines (1 - Tdap) [facility] Start: 07-08-2005 Urine microalbumin profile DTaP,Tdap,Td Vaccine (1 - Tdap) [facility] Start: 01-03-1959 DTaP/Tdap/Td vaccine (1 - Tdap) DTaP/Tdap/Td vaccine (1 - Tdap) [facility] Start: 01-03-1958 Anxiety Screening Anxiety Screening [facility] Start: 01-03-1958 Depression Screening Depression Screening [facility] Start: 1952 Depression Screening Depression Screening [facility] Start: 1940 Creatinine monitoring Creatinine monitoring [facility] Start: 1940 Echocardiography Echocardiogram [facility] Start: 1940 Lipid panel Lipid Panel [facility] Start: 1940 Medicare Annual Wellness (AWV) Medicare Annual Wellness (AWV) [facility] Start: 1940 Potassium monitoring Potassium monitoring [facility] End: 07-19-2019 Anaerobic Culture Anaerobic Culture Microbiology Routine Once for 1 Occurrences starting 07/19/2019 until 07/19/2019 [facility] Comment on above: Once for 1 Occurrences starting 07/19/20 until 07/19/2019 Anaerobic Culture Anaerobic Cult ure Microbiology Routine 07/19/2019 9:00 AM EDT [facility] Bacteria identified in Urine by Culture BACTERIAL CULTURE, URINE Microbiology Routine Left lower quadrant abdominal pain 11/27/2024 11:46 AM EDT [facility] Basic metabolic 2008 panel with ionized calcium - Serum or Plasma [facility] Blood chemistry [facility] End: 07-19-2019 Body Fluid Culture Body Fluid Culture Microbiology Routine Once for 1 Occurrences starting 07/19/2019 until 07/19/2019 [facility] Comment on above: Once for 1 Occurrences starting 07/19/20 until 07/19/2019 Body Fluid Culture Body Fluid Cu lture Microbiology Routine 07/19/2019 9:00 AM EDT [facility] Calprotectin [Mass/m ass] in Stool CALPROTECTIN,FECAL Lab Routine Diarrhea, unspecified type Ordered: 12/30/2022 [facility] Work Phone: Comment on above: Ordered: 12/30/2022 Clostridioides diffi cile toxin genes [Presence] in Stool by ELIZABETH with probe detection C. DIFFICILE PCR Lab Routine Loose stools Ordered: 07/03/2022 [facility] Work Phone: Comment on above: Ordered: 07/03/2022 Clostridioides diffi cile toxin genes [Presence] in Stool by ELIZABETH with probe detection C. DIFFICILE PCR Lab Routine Diarrhea, unspecified type Ordered: 12/30/2022 [facility] Work Phone: Comment on above: Ordered: 12/30/2022 End: 01-08-2024 COLONOSCOPY DIAGNOSTIC COLONOSCOPY DIAGNOSTIC Endoscopy Routine Diarrhea, unspecified type 1 Occurrences starting 01/07/2023 until 01/08/2024 [facility] Work Phone: Comment on above: 1 Occurrences starting 01/07/2023 until 01/08/2024 CT Abdomen and Pelvis [facility] CT Abdomen and Pelvis [facility] End: 12-27-2025 CT Abdomen and Pelvis W contrast IV CT ABD/PEL W IVCON Radiology STAT Left lower quadrant abdominal pain 1 Occurrences starting 11/27/2024 until 12/27/2025 [facility] Work Phone: Comment on above: 1 Occurrences starting 11/27/2024 until 12/27/2025 End: 02-03-2025 CTA Abdominal vessels and Pelvis vessels WO and W contrast IV CTA ABD/PEL WO/W IVCON Radiology Routine Encounter for other preprocedural examination 1 Occurrences starting 01/05/2024 until 02/03/2025 [facility] Work Phone: Comment on above: 1 Occurrences starting 01/05/2024 until 02/03/2025 End: 02-03-2025 CTA Chest vessels WO and W contrast IV CTA CHEST (NONGATED) WO/W IVCON Radiology Routine Encounter for other preprocedural examination 1 Occurrences starting 01/05/2024 until 02/03/2025 [facility] Work Phone: Comment on above: 1 Occurrences starting 01/05/2024 until 02/03/2025 End: 07-19-2019 EKG 12 Lead EKG 12 Lead ECG STAT One Time for 1 Occurrences starting 07/19/2019 until 07/19/2019 [facility] [place] Comment on above: One Time for 1 Occurrences starting 06/22 until 07/19/2019 ENTERIC BACTERIAL PA SKYE BY PCR ENTERIC BACTERIAL PANEL BY PCR Lab Routine Loose stools Ordered: 07/03/2022 [facility] Work Phone: Comment on above: Ordered: 07/03/2022 FECAL LACTOFERRIN/LEUKOCYTES FECAL LACTOFERRIN/LEUKOCYTES Lab Routine Diarrhea, unspecified type Ordered: 12/30/2022 [facility] Work Phone: Comment on above: Ordered: 12/30/2022 Glomerular filtratio n rate/1.73 sq M.predicted [Volume Rate/Area] in Serum, Plasma or Blood by Creatinine-based formula (CKD-EPI) [facility] End: 03-16-2025 Guidance for embolization of Vessels [facility] Work Phone: Comment on above: Once for 1 Occurrences starting 03/16/20 25 until 03/16/2025 Hemoglobin.gastroint estin al.lower [Presence] in Stool by Immunoassay IMMUNOCHEMICAL FECAL OCCULT BLOOD TEST Lab Routine BENIGN HYPERTENSION Weight loss Fatigue, unspecified type Ordered: 05/23/2024 [facility] Comment on above: Ordered: 05/23/2024 Magnesium measurement [facility] Natriuretic peptide. B prohormone N-Terminal [Mass/volume] in Serum or Plasma [facility] Ova and parasites identified in Unspecified specimen by Light microscopy OVA + PARA MICROSCOPIC Microbiology Routine Loose stools Ordered: 07/03/2022 [facility] Work Phone: Comment on above: Ordered: 07/03/2022 Patient Education ED Diverticulitis [facility] Work Phone: Patient referral [facility] Work Phone: [facility] Immunizations Immunization Date Immunization Notes Care Provider Orlando valenzuela 07-13-2020 influenza (HD-IIV4) vaccine, age 65+ yr, high dose, quadrivalent, PF (FLUZONE HIGH-DOSE) Darya Older TECHNICAL TRAINING SPECIALIST.RIDDLER OPERATOR Work Phone: [facility] 07-13-2020 influenza, high dose seasonal, preservative-free Goffglendy Elizalde RN [facility] 07-13-2020 influenza virus vacc ine, unspecified formulation Dallas Reed MD Work Phone: [facility] 07-21-2019 influenza, high dose seasonal, preservative-free Goff Fide RN [facility] Work Phone: 08-10-2018 influenza, high dose seasonal, preservative-free Goff Fide RN [facility] Work Phone: 02-10-2018 pneumococcal conjuga te vaccine, 13 valent Goffglendy Elizalde RN [facility] Work Phone: 07-30-2017 influenza, high dose seasonal, preservative-free Goffglendy Mathewa RN [facility] 07-21-2016 influenza, high dose seasonal, preservative-free Goff Fide RN [facility] 08-20-2015 influenza, high dose seasonal, preservative-free Goff Fide RN [facility] Work Phone: 08-20-2015 influenza, injectabl e, quadrivalent, preservative free Dr. Dallas Reed Work Phone: [facility] 08-20-2015 influenza, seasonal, injectable Dr. Dallas Reed Work Phone: [facility] 08-20-2015 influenza, seasonal, injectable, preservative free Darya Older TECHNICAL TRAINING SPECIALIST.RIDDLER OPERATOR Work Phone: [facility] 08-18-2014 zoster vaccine, live [place] Elizalde RN [facility] Work Phone: 07-10-2014 influenza, high dose seasonal, preservative-free Goff Fide RN [facility] Work Phone: 07-10-2014 influenza, seasonal, injectable Goffglendy Elizalde RN [facility] Work Phone: 07-10-2014 pneumococcal polysaccharide vaccine, 23 valent Denver Elizalde RN [facility] Work Phone: 07-15-2010 influenza virus vacc ine, whole virus Denver Elizalde RN [facility] Work Phone: 09-18-2009 novel influenza-H1N1 -09, preservative-free, injectable Denver Elizalde RN [facility] Work Phone: 08-07-2009 influenza virus vacc ine, unspecified formulation Denver Elizalde RN [facility] 08-04-2007 influenza virus vacc ine, unspecified formulation Denver Elizalde RN [facility] Work Phone: 07-26-2006 influenza virus vacc ine, unspecified formulation Denver Elizalde RN [facility] 07-07-2005 tetanus and diphther ia toxoids, adsorbed, preservative free, for adult use (2 Lf of tetanus toxoid and 2 Lf of diphtheria toxoid) Denver Elizalde RN [facility] Work Phone: 06-20-2004 pneumococcal polysaccharide vaccine, 23 valent Denver Elizalde RN [facility] Payers Date Payer Category Payer Unknown [id number] 2024 Medicare [id number] 2024 Self-pay [id number] 2018 Medicare [id number] 2017 Commercial Managed C are - HMO MMO SUPERMED ACCESS [id number] 2012 Private Health Insurance [id number] 2012 Unknown [employer] [id number] 2012-Present [address] [place] [address] Indemnity [id number] 2012 Unknown [id number] 2012 Unknown [id number] 2004 Medicare MEDICARE MEDICAR E A AND B [id number] 2004-Present [phone] [address] [address] [place] [address] Medicare [id number] 2004 Medicare [id number] 2004 Medicare [id number] Medicare [id number] Unknown [id number] .462 Unknown [id number] 2.16.840.1.177996.3.579.2 .462 Unknown [id number] 2.16.840.1.405149.3.579.2 .462 Unknown [id number] 2.16.840.1.827658.3.579.2 .462 Unknown [id number] 2.16.840.1.051547.3.579.2 .462 Unknown [id number] 2.16.840.1.171559.3.579.2 .462 Unknown [id number] 2.16.840.1.847978.3.579.2 .462 Unknown [id number] 2.16.840.1.258733.3.579.2 .462 Unknown [id number] 2.16.840.1.023425.3.579.2 .462 Unknown [id number] 2.16.840.1.398809.3.579.2 .462 Unknown [id number] 2.16.840.1.674851.3.579.2 .462 Unknown [id number] 2.16.840.1.093318.3.579.2 .462 Unknown [id number] 2.16.840.1.756294.3.579.2 .462 Unknown [id number] 2.16.840.1.444659.3.579.2 .462 Unknown [id number] 2.16.840.1.590655.3.579.2 .462 Unknown [id number] 2.16.840.1.752980.3.579.2 .462 Unknown [id number] 2.16.840.1.940899.3.579.2 .462 Unknown [id number] 2.16.840.1.171036.3.579.2 .462 Unknown [id number] 2.16.840.1.598867.3.579.2 .462 Unknown [id number] 2.16.840.1.734899.3.579.2 .462 Unknown [id number] 2.16.840.1.921225.3.579.2 .462 Unknown [id number] .462 Social History Date Type Detail Facility Start: 07-19-2019 End: 05-23-2024 Tobacco smoking status [facility] Former smoker [facility] Work Phone: Start: 07-19-2019 End: 02-04-2023 Alcohol intake Not Currently [facility] Start: 1940 Sex Assigned At Not on file [place], [place] Start: 09-20-1962 End: 09-20-1964 History of tobacco use Current smoker [facility] Work Phone: Start: 09-20-1962 End: 09-20-1964 History of tobacco use Cigarette Smoker [facility] Work Phone: Start: 02-10-2018 End: 02-04-2023 Cigarettes smoked current (pack per day) - Reported 1 [facility] Start: 02-10-2018 End: 05-23-2024 Tobacco use and exposure Smokeless tobacco non-user [facility] Work Phone: Start: 09-14-2021 End: 05-18-2025 Alcohol intake Current non-drinker of alcohol (finding) [facility] Start: 07-04-2021 History SDOH Alcohol Frequency 1 [facility] Start: 05-31-2020 History SDOH Alcohol Binge 99 [facility] Start: 07-04-2021 History SDOH Social Connections Phone 3 [facility] Start: 07-04-2021 History SDOH Social Connections Get Together 2 [facility] Start: 07-04-2021 History SDOH Social Connections Meetings 98 [facility] Start: 07-04-2021 History SDOH Financial 5 [facility] Start: 07-04-2021 Education 12 [facility] Start: 01-03-2022 End: 07-03-2022 Exposure to SARS-CoV-2 (event) Not sure [facility] Work Phone: Start: 11-12-2021 End: 06-25-2023 Tobacco smoking status NHIS Unknown if ever smoked [facility] Start: 10-13-2016 None [facility] Start: 10-13-2016 Spouse/ Significant Other [facility] Start: 01-20-2021 Cigarettes [facility] Start: 1940 Sex Assigned At Male [facility] Do you belong to any clubs or organizations such as pentecostalism groups, unions, fraternal or athletic groups, or school groups? Yes [facility] Start: 08-21-2012 How often do you attend meetings of the clubs or organizations you belong to? Patient refused [facility] Are you now , , , , never or living with a partner? [facility] How often to you hav e a drink containing alcohol? Never [facility] Do you feel stress - tense, restless, nervous, or anxious, or unable to sleep at night because your mind is troubled all the time - these days [OSQ] Not at all [facility] (I/We) worried wheth er (my/our) food would run out before (I/we) got money to buy more. Never true [facility] In the past 12 month s, was there a time when you were not able to pay the mortgage or rent on time? No [facility] Start: 04-20-2022 End: 11-28-2024 Sex Male (finding) [facility] How hard is it for y ou to pay for the very basics like food, housing, medical care, and heating Not very hard [facility] Start: 09-08-2022 End: 03-19-2025 Alcoholic beverage intake Ex-drinker (finding) [facility] Medical Equipment Procedure Code Equipment Code Equipment Origin al Text Equipment Identifier Dates Repair, hernia, ventral, with mesh insertion ([id number]) Extra-gynaecological surgical mesh, composite-polymer [id number] FDA Start: 08-31-2024 Evacuation, hematoma SEALANT,FLOSEAL HEMOSTATIC 5ML FDA Start: 01-20-2021 Evacuation, hematoma SUTURE,LIGA CLIP SM LT-100 FDA Start: 01-20-2021 Evacuation, hematoma SEALANT,FLOSEAL HEMOSTATIC 5ML FDA Start: 01-20-2021 Evacuation, hematoma SUTURE,LIGA CLIP SM LT-100 FDA Start: 01-20-2021 Evacuation, hematoma SEALANT,FLOSEAL HEMOSTATIC 5ML FDA Start: 01-20-2021 Evacuation, hematoma SUTURE,LIGA CLIP SM LT-100 FDA Start: 01-20-2021 Evacuation, hematoma SEALANT,FLOSEAL HEMOSTATIC 5ML FDA Start: 01-20-2021 Evacuation, hematoma SUTURE,LIGA CLIP SM LT-100 FDA Start: 01-20-2021 Evacuation, hematoma SEALANT,FLOSEAL HEMOSTATIC 5ML FDA Start: 01-20-2021 Evacuation, hematoma SUTURE,LIGA CLIP SM LT-100 FDA Start: 01-20-2021 Evacuation, hematoma SEALANT,FLOSEAL HEMOSTATIC 5ML FDA Start: 01-20-2021 Evacuation, hematoma SUTURE,LIGA CLIP SM LT-100 FDA Start: 01-20-2021 Evacuation, hematoma SEALANT,FLOSEAL HEMOSTATIC 5ML FDA Start: 01-20-2021 Evacuation, hematoma SUTURE,LIGA CLIP SM LT-100 FDA Start: 01-20-2021 Evacuation, hematoma SEALANT,FLOSEAL HEMOSTATIC 5ML FDA Start: 01-20-2021 Evacuation, hematoma SUTURE,LIGA CLIP SM LT-100 FDA Start: 01-20-2021 Evacuation, hematoma SEALANT,FLOSEAL HEMOSTATIC 5ML FDA Start: 01-20-2021 Evacuation, hematoma SUTURE,LIGA CLIP SM LT-100 FDA Start: 01-20-2021 Evacuation, hematoma SEALANT,FLOSEAL HEMOSTATIC 5ML FDA Start: 01-20-2021 Evacuation, hematoma SUTURE,LIGA CLIP SM LT-100 FDA Start: 01-20-2021 Evacuation, hematoma SEALANT,FLOSEAL HEMOSTATIC 5ML FDA Start: 01-20-2021 Evacuation, hematoma SUTURE,LIGA CLIP SM LT-100 FDA Start: 01-20-2021 Evacuation, hematoma SEALANT,FLOSEAL HEMOSTATIC 5ML FDA Start: 01-20-2021 Evacuation, hematoma SUTURE,LIGA CLIP SM LT-100 FDA Start: 01-20-2021 Evacuation, hematoma SEALANT,FLOSEAL HEMOSTATIC 5ML FDA Start: 01-20-2021 Evacuation, hematoma SUTURE,LIGA CLIP SM LT-100 FDA Start: 01-20-2021 Evacuation, hematoma SEALANT,FLOSEAL HEMOSTATIC 5ML FDA Start: 01-20-2021 Evacuation, hematoma SUTURE,LIGA CLIP SM LT-100 FDA Start: 01-20-2021 Evacuation, hematoma SEALANT,FLOSEAL HEMOSTATIC 5ML FDA Start: 01-20-2021 Evacuation, hematoma SUTURE,LIGA CLIP SM LT-100 FDA Start: 01-20-2021 Endarterectomy, carotid PATCH,VASC .8CM X 8CM FDA Start: 01-20-2021 Endarterectomy, carotid SUTURE,LIGA CLIP MED [id number] FDA Start: 01-20-2021 Endarterectomy, carotid SUTURE,LIGA CLIP MED [id number] FDA Start: 01-20-2021 Endarterectomy, carotid SUTURE,LIGA CLIP SM LT-100 FDA Start: 01-20-2021 Endarterectomy, carotid SUTURE,LIGA CLIP SM LT-100 FDA Start: 01-20-2021 Endarterectomy, carotid SUTURE,LIGA CLIP SM LT-100 FDA Start: 01-20-2021 Endarterectomy, carotid PATCH,VASC .8CM X 8CM FDA Start: 01-20-2021 Endarterectomy, carotid SUTURE,LIGA CLIP MED [id number] FDA Start: 01-20-2021 Endarterectomy, carotid SUTURE,LIGA CLIP MED [id number] FDA Start: 01-20-2021 Endarterectomy, carotid SUTURE,LIGA CLIP SM LT-100 FDA Start: 01-20-2021 Endarterectomy, carotid SUTURE,LIGA CLIP SM LT-100 FDA Start: 01-20-2021 Endarterectomy, carotid SUTURE,LIGA CLIP SM LT-100 FDA Start: 01-20-2021 Endarterectomy, carotid PATCH,VASC .8CM X 8CM FDA Start: 01-20-2021 Endarterectomy, carotid SUTURE,LIGA CLIP MED [id number] FDA Start: 01-20-2021 Endarterectomy, carotid SUTURE,LIGA CLIP MED [id number] FDA Start: 01-20-2021 Endarterectomy, carotid SUTURE,LIGA CLIP SM LT-100 FDA Start: 01-20-2021 Endarterectomy, carotid SUTURE,LIGA CLIP SM LT-100 FDA Start: 01-20-2021 Endarterectomy, carotid SUTURE,LIGA CLIP SM LT-100 FDA Start: 01-20-2021 Endarterectomy, carotid PATCH,VASC .8CM X 8CM FDA Start: 01-20-2021 Endarterectomy, carotid SUTURE,LIGA CLIP MED [id number] FDA Start: 01-20-2021 Endarterectomy, carotid SUTURE,LIGA CLIP MED [id number] FDA Start: 01-20-2021 Endarterectomy, carotid SUTURE,LIGA CLIP SM LT-100 FDA Start: 01-20-2021 Endarterectomy, carotid SUTURE,LIGA CLIP SM LT-100 FDA Start: 01-20-2021 Endarterectomy, carotid SUTURE,LIGA CLIP SM LT-100 FDA Start: 01-20-2021 Endarterectomy, carotid PATCH,VASC .8CM X 8CM FDA Start: 01-20-2021 Endarterectomy, carotid SUTURE,LIGA CLIP MED [id number] FDA Start: 01-20-2021 Endarterectomy, carotid SUTURE,LIGA CLIP MED [id number] FDA Start: 01-20-2021 Endarterectomy, carotid SUTURE,LIGA CLIP SM LT-100 FDA Start: 01-20-2021 Endarterectomy, carotid SUTURE,LIGA CLIP SM LT-100 FDA Start: 01-20-2021 Endarterectomy, carotid SUTURE,LIGA CLIP SM LT-100 FDA Start: 01-20-2021 Endarterectomy, carotid PATCH,VASC .8CM X 8CM FDA Start: 01-20-2021 Endarterectomy, carotid SUTURE,LIGA CLIP MED LT200 FDA Start: 01-20-2021 Endarterectomy, carotid SUTURE,LIGA CLIP MED LT200 FDA Start: 01-20-2021 Endarterectomy, carotid SUTURE,LIGA CLIP SM LT-100 FDA Start: 01-20-2021 Endarterectomy, carotid SUTURE,LIGA CLIP SM LT-100 FDA Start: 01-20-2021 Endarterectomy, carotid SUTURE,LIGA CLIP SM LT-100 FDA Start: 01-20-2021 Endarterectomy, carotid PATCH,VASC .8CM X 8CM FDA Start: 01-20-2021 Endarterectomy, carotid SUTURE,LIGA CLIP MED LT200 FDA Start: 01-20-2021 Endarterectomy, carotid SUTURE,LIGA CLIP MED LT200 FDA Start: 01-20-2021 Endarterectomy, carotid SUTURE,LIGA CLIP SM LT-100 FDA Start: 01-20-2021 Endarterectomy, carotid SUTURE,LIGA CLIP SM LT-100 FDA Start: 01-20-2021 Endarterectomy, carotid SUTURE,LIGA CLIP SM LT-100 FDA Start: 01-20-2021 Endarterectomy, carotid PATCH,VASC .8CM X 8CM FDA Start: 01-20-2021 Endarterectomy, carotid SUTURE,LIGA CLIP MED LT200 FDA Start: 01-20-2021 Endarterectomy, carotid SUTURE,LIGA CLIP MED LT200 FDA Start: 01-20-2021 Endarterectomy, carotid SUTURE,LIGA CLIP SM LT-100 FDA Start: 01-20-2021 Endarterectomy, carotid SUTURE,LIGA CLIP SM LT-100 FDA Start: 01-20-2021 Endarterectomy, carotid SUTURE,LIGA CLIP SM LT-100 FDA Start: 01-20-2021 Endarterectomy, carotid PATCH,VASC .8CM X 8CM FDA Start: 01-20-2021 Endarterectomy, carotid SUTURE,LIGA CLIP MED LT200 FDA Start: 01-20-2021 Endarterectomy, carotid SUTURE,LIGA CLIP MED LT200 FDA Start: 01-20-2021 Endarterectomy, carotid SUTURE,LIGA CLIP SM LT-100 FDA Start: 01-20-2021 Endarterectomy, carotid SUTURE,LIGA CLIP SM LT-100 FDA Start: 01-20-2021 Endarterectomy, carotid SUTURE,LIGA CLIP SM LT-100 FDA Start: 01-20-2021 Endarterectomy, carotid PATCH,VASC .8CM X 8CM FDA Start: 01-20-2021 Endarterectomy, carotid SUTURE,LIGA CLIP MED LT200 FDA Start: 01-20-2021 Endarterectomy, carotid SUTURE,LIGA CLIP MED LT200 FDA Start: 01-20-2021 Endarterectomy, carotid SUTURE,LIGA CLIP SM LT-100 FDA Start: 01-20-2021 Endarterectomy, carotid SUTURE,LIGA CLIP SM LT-100 FDA Start: 01-20-2021 Endarterectomy, carotid SUTURE,LIGA CLIP SM LT-100 FDA Start: 01-20-2021 Endarterectomy, carotid PATCH,VASC .8CM X 8CM FDA Start: 01-20-2021 Endarterectomy, carotid SUTURE,LIGA CLIP MED LT200 FDA Start: 01-20-2021 Endarterectomy, carotid SUTURE,LIGA CLIP MED LT200 FDA Start: 01-20-2021 Endarterectomy, carotid SUTURE,LIGA CLIP SM LT-100 FDA Start: 01-20-2021 Endarterectomy, carotid SUTURE,LIGA CLIP SM LT-100 FDA Start: 01-20-2021 Endarterectomy, carotid SUTURE,LIGA CLIP SM LT-100 FDA Start: 01-20-2021 Endarterectomy, carotid PATCH,VASC .8CM X 8CM FDA Start: 01-20-2021 Endarterectomy, carotid SUTURE,LIGA CLIP MED LT200 FDA Start: 01-20-2021 Endarterectomy, carotid SUTURE,LIGA CLIP MED LT200 FDA Start: 01-20-2021 Endarterectomy, carotid SUTURE,LIGA CLIP SM LT-100 FDA Start: 01-20-2021 Endarterectomy, carotid SUTURE,LIGA CLIP SM LT-100 FDA Start: 01-20-2021 Endarterectomy, carotid SUTURE,LIGA CLIP SM LT-100 FDA Start: 01-20-2021 Endarterectomy, carotid PATCH,VASC .8CM X 8CM FDA Start: 01-20-2021 Endarterectomy, carotid SUTURE,LIGA CLIP MED LT200 FDA Start: 01-20-2021 Endarterectomy, carotid SUTURE,LIGA CLIP MED LT200 FDA Start: 01-20-2021 Endarterectomy, carotid SUTURE,LIGA CLIP SM LT-100 FDA Start: 01-20-2021 Endarterectomy, carotid SUTURE,LIGA CLIP SM LT-100 FDA Start: 01-20-2021 Endarterectomy, carotid SUTURE,LIGA CLIP SM LT-100 FDA Start: 01-20-2021 Endarterectomy, carotid PATCH,VASC .8CM X 8CM FDA Start: 01-20-2021 Endarterectomy, carotid SUTURE,LIGA CLIP MED LT200 FDA Start: 01-20-2021 Endarterectomy, carotid SUTURE,LIGA CLIP MED LT200 FDA Start: 01-20-2021 Endarterectomy, carotid SUTURE,LIGA CLIP SM LT-100 FDA Start: 01-20-2021 Endarterectomy, carotid SUTURE,LIGA CLIP SM LT-100 FDA Start: 01-20-2021 Endarterectomy, carotid SUTURE,LIGA CLIP SM LT-100 FDA Start: 01-20-2021 Endarterectomy, carotid PATCH,VASC .8CM X 8CM FDA Start: 01-20-2021 Endarterectomy, carotid SUTURE,LIGA CLIP MED LT200 FDA Start: 01-20-2021 Endarterectomy, carotid SUTURE,LIGA CLIP MED LT200 FDA Start: 01-20-2021 Endarterectomy, carotid SUTURE,LIGA CLIP SM LT-100 FDA Start: 01-20-2021 Endarterectomy, carotid SUTURE,LIGA CLIP SM LT-100 FDA Start: 01-20-2021 Endarterectomy, carotid SUTURE,LIGA CLIP SM LT-100 FDA Start: 01-20-2021 ([id number]) Abdominal aorta endovascular stent-graft ()[id number] FDA Start: 04-07-2023 Abdominal aorta endovascular stent-graft ()[id number] FDA Start: 04-07-2023 Abdominal aorta endovascular stent-graft ()[id number] FDA Start: 04-07-2023 Femoral vessel s uture implantation set ()[id number] FDA Start: 04-07-2023 Kit Embo Avm Gi x 18 - [id number] Start: 03-16-2025 Coil Embo Embold 20mm 50cm - [id number] Start: 03-16-2025 Coil Embo Embold 22mm 60cm - [id number] Start: 03-16-2025 Device Clsr Mynx parlor maid 6-7fr Grn - [id number] Start: 03-16-2025 Goals Date Patient Goal Desired Activity /State Personal health goal Comment on above: Formatting of this n ote might be different from the original. Wants to return to 100% Health Personal health goal Comment on above: Formatting of this n ote might be different from the original. Improve Health Personal health goal Personal health goal Comment on above: Formatting of this n ote might be different from the original. Patient has the following Chronic Kidney Disease goals: Two PCP visits annually Education provided and reviewed with patient - sent on 05/20/23 CKD PAVEL Education - CKD (ALL) Patient will meet these goals by: 05/20/24 (describe interventions done by PCC) Pt's Goal: Prevent complications Personal health goal Comment on above: Formatting of this n ote might be different from the original. Wants to return to 100% Health Comment on above: Formatting of this n ote might be different from the original. Improve Health Functional Status Date Assessment Result Facility 12-01-2024 Are you deaf, or do you have serious difficulty hearing No 12/01/2024 1:58 PM Lori Sue, CHRISTIANO No [facility] 12-01-2024 Are you blind, or do you have serious difficulty seeing, even when wearing glasses No 12/01/2024 1:58 PM Lori Sue, CHRISTIANO No [facility] 12-01-2024 Do you have serious difficulty walking or climbing stairs No 12/01/2024 1:58 PM Lori Sue, CHRISTIANO No [facility] 12-01-2024 Do you have difficul ty dressing or bathing No 12/01/2024 1:58 PM Lori Sue, CHRISTIANO No [facility] 12-01-2024 Because of a physica l, mental, or emotional condition, do you have difficulty doing errands alone such as visiting a physician's office or shopping No 12/01/2024 1:58 PM Lori Sue RN No [facility] 08-31-2024 Functional status Ambulates [facility] Work Phone: 04-08-2023 Functional status Activity Abili ty Standby Assist [facility] Work Phone: 04-08-2023 Functional status Patient Activi ty Chair;Stand with Urinal [facility] Work Phone: 04-08-2023 Functional status None [facility] Work Phone: 01-16-2015 Are you deaf, or do you have serious difficulty hearing No 01/16/2015 3:35 PM EDT Sara Cassidy LPN No [facility] 01-16-2015 Are you blind, or do you have serious difficulty seeing, even when wearing glasses No 01/16/2015 3:35 PM BAKARIT Sara Cassidy LPN No [facility] 01-16-2015 Do you have serious difficulty walking or climbing stairs No 01/16/2015 3:35 PM BAKARIT Sara Cassidy LPN No [facility] 01-16-2015 Do you have difficul ty dressing or bathing No 01/16/2015 3:35 PM Sara Santillan LPN No [facility] 01-16-2015 Because of a physica l, mental, or emotional condition, do you have difficulty doing errands alone such as visiting a physician's office or shopping No 01/16/2015 3:35 PM EDT Sara Cassidy LPN No [facility] Mental Status Date Assessment Result Facility 12-01-2024 Because of a physica l, mental, or emotional condition, do you have serious difficulty concentrating, remembering, or making decisions No 12/01/2024 1:58 PM EDT Lori Sesay, CHRISTIANO No [facility] 11-28-2024 Cognitive function Level Of Cons ciousness Awake;Alert;Appropriate [facility] Work Phone: 08-31-2024 Cognitive function Voice/Name [facility] Work Phone: 12-27-2023 Cognitive function Voice/Name [facility] Work Phone: 05-26-2023 Cognitive function Awake;Alert;Appropriat e [facility] Work Phone: 04-08-2023 Cognitive function Voice/Name;Touch/Shaki ng [facility] Work Phone: 02-25-2023 Cognitive function Voice/Name [facility] Work Phone: 01-16-2015 Because of a physica l, mental, or emotional condition, do you have serious difficulty concentrating, remembering, or making decisions No 01/16/2015 3:35 PM EDT Sara Cassidy LPN No [facility] Clinical Notes 08-26-2017 to 05-18-2025 Darya Borden, TECHNICAL TRAINING SPECIALIST.RIDDLER OPERATOR - 05/18/2025 10:09 AM EDTPatient Luci Salazar RN - 04/03/2025 12:29 PM EDTTelephone Encounter - Venessa Grant RN - 03/28/2025 10:26 AM EDTAttachments Note Date & Type Note Facility 05-18-2025 Note [facility] 05-18-2025 History of Presen t illness Narrative CC: Patient presents with: Fatigue: No energy x 2 months HPI Recording using ambient AI software for draft documentation of the visit was discussed with the patient/authorized marketing sales representative; all questions welcomed and answered. Patient/authorized marketing sales representative agreed to proceed The patient is an 85-year-old male with HTN, chronic CHF, and hypothyroidism, presenting for evaluation of fatigue and medication management of hypotension. Fatigue: - Patient reports feeling a lot more tired than usual for the past two months - Associated with weak feeling - Denies fever, chills, unintentional weight loss Hypotension: - BP has been low at home, average in the 110's/60's - He was concerned this was causing his fatigue so he temporarily discontinued antihypertensive medications for a few days, resulting in BP readings of 131/72 mmHg. - Resumed antihypertensive medications today. - Denies dizziness, lightheadedness, feeling faint or passing out CHF: - Recent episodes of palpitations and dyspnea, particularly at night. 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 Bobo. - Post operative anemia, most recent CBC in February revealed improved anemia but has not been rechecked since then Subclinical hypothyroidism: - Taking levothyroxine as prescribed, denies missing doses Review of Systems See HPI PAST MEDICAL HISTORY Diagnosis Date Abdominal aortic aneurysm (AAA) without rupture 08/26/201708/2017: 3.7 cm Anemia Chronic diastolic CHF (congestive heart failure) ([facility]) 10/20/[address] 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 Unspecified essential hypertension Essential hypertension PAST SURGICAL HISTORY Procedure Laterality Date ARTHRP ACETBLR/PROX FEM PROSTC AGRFT/ALGRFT 08/02/2006 Hip replacement, total, Right BLEPHAROPLASTY, UPPER EYELID 2013 CAROTID ENDARTERECTOMY Right 01/20/2021 w/ bovine patch angioplasty COLONOSCOPY - DIAGNOSTIC 01/15/2023 collagenous colitis, int hemorrhoids COLONOSCOPY FLX DX W/COLLJ SPEC WHEN PFRMD 03/18/2001 anemia COLONOSCOPY FLX DX W/COLLJ SPEC WHEN PFRMD 05/13/2010 repeat 10 yrs COLONOSCOPY FLX DX W/COLLJ SPEC WHEN PFRMD 05/21/2020 Colonoscopy ENTEROLSS FRING INTSTINAL ADHESION SPX 07/29/2015 ESOPHAGOGASTRODUODENOSCOPY TRANSORAL DIAGNOSTIC 03/18/2001 anemia ESOPHAGOGASTRODUODENOSCOPY TRANSORAL DIAGNOSTIC 05/21/2020 EGD HERNIA REPAIR W/MESH 08/31/2024 Open Spigelian Hernia repair I&D HEMATOMA Right 07/19/2019 CT guided aspiration, iliopsoas hematoma IR AAA ENDO REPAIR 2 LIMB 04/07/2023 AAA stent graft repair, [facility] LAPS RPR RECURRENT INCISIONAL HERNIA REDUCIBLE 07/29/2015 PAST SURGICAL HISTORY OF 09/09/2015 left total knee arthroplasty PAST SURGICAL HISTORY OF 09/15/2017 micro-disectomy L4-L5, with microcompression bilaterally. PAST SURGICAL HISTORY OF Right 12/16/2018 Repair of complex lateral meniscus tear, Right knee REPAIR UMBILICAL HERNIA 1980 Dr. Henry STRESS TEST 09/03/2017 normal ALLERGIES Clonidine, Crestor [Rosuvastatin Calcium], Lipitor [Atorvastatin Calcium], Lisinopril, Nifedipine, and Statins [Dzqjpkl-Rck-Xyp Reductase Inhibitors] MEDICATIONS losartan (COZAAR) 100 mg tablet Take 1 tablet by mouth once daily. levothyroxine (SYNTHROID) 25 mcg tablet Take 1 tablet by mouth daily before breakfast. Except one day a week take an extra tablet ezetimibe (ZETIA) 10 mg tablet Take 1 tablet by mouth once daily. doxazosin (CARDURA) 8 mg tablet Take 1 tablet by mouth daily at bedtime. hydrALAZINE (APRESOLINE) 100 mg tablet Take 1 tablet by mouth three times a day. bempedoic acid (NEXLETOL) 180 mg tablet Take 1 tablet (180 mg) by mouth once daily. ascorbic acid, vitamin C, 500 mg cap Take 500 mg by mouth once daily. TURMERIC ORAL Take 1 capsule by mouth once daily. ubidecarenone/vitamin E mixed (COQ10 SG 100 ORAL) Take 1 capsule by mouth once daily. glucosamine/chondr rich A sod (OSTEO BI-FLEX ORAL) Take 2 tablets by mouth once daily. Magnesium 200 mg tab Take 400 mg by mouth once daily. Cholecalciferol, Vitamin D3, 25 mcg (1,000 unit) cap Take 5,000 Units by mouth once daily. multivit-minerals/FA/lycopene (ONE-A-DAY MEN'S ORAL) Take 1 tablet by mouth once daily. vitamin b complex (B COMPLETE) tab Take 1 tablet by mouth once daily. carvedilol (COREG) 6.25 mg tablet Take 1 tablet by mouth two times a day with meals. furosemide (LASIX) 20 mg tablet Take 1 tablet by mouth once daily. fluticasone (FLONASE) 50 mcg/actuation nasal spray Use 1 [place] in each nostril daily at bedtime. aspirin 81 mg chewable tablet Take 1 tablet by mouth once daily. levOCARNitine (L-CARNITINE) 500 mg capsule Take 500 mg by mouth once daily. FAMILY HISTORY Problem Relation Age of Onset Cancer Mother oral Cancer Father Lymphnode, Lung, Liver other (brain tumor) Other SOCIAL HISTORY[1] BP 112/70 Pulse (!) 56 Resp 14 Wt 62.9 kg (138 lb 10.7 oz) SpO2 94% BMI 21.08 kg/m Physical Exam Vitals reviewed. Constitutional: General: He is not in acute distress. Appearance: He is not ill-appearing or toxic-appearing. Cardiovascular: Rate and Rhythm: Regular rhythm. Bradycardia present. Heart sounds: Normal heart sounds. Pulmonary: Effort: Pulmonary effort is normal. Breath sounds: Normal breath sounds. No wheezing, rhonchi or rales. Lymphadenopathy: Cervical: No cervical adenopathy. Upper Body: Right upper body: No supraclavicular adenopathy. Left upper body: No supraclavicular adenopathy. Skin: General: Skin is warm and dry. Neurological: Mental Status: He is alert. DATA REVIEWED: Most recent labs and cardiology office visit note Assessment/Plan 1. Fatigue, unspecified type: Persistent, potentially contributed to by low blood pressure and heart rate along with other factors. Monitoring for improvement following adjustment of antihypertensive regimen and lab evaluation. 2. Essential hypertension: Runs low at times, with readings around 114/62 at home. - Decreased carvedilol from 12.5 mg twice daily to 6.25 mg twice daily to reduce bradycardia and hypotension; instructed patient to replace the 12.5 mg prescription with the new 6.25 mg dose at the pharmacy. - Advised gradual taper to avoid rebound hypertension; may discontinue hydralazine at future visit if blood pressure remains adequately controlled. - Follow-up in 4 weeks for blood pressure reassessment. 3. Chronic diastolic CHF (congestive heart failure) (HCC): - Continue with Lasix as prescribed 4. Anemia, unspecified type: Possibly related to recent aortic surgery. Ordered repeat blood counts (CBC) to assess current hemoglobin level and evaluate for ongoing anemia. 5. Subclinical hypothyroidism: Thyroid studies previously checked; repeat labs ordered today to determine if thyroid function has normalized. No medication changes indicated at this time until lab results are reviewed. Prescription instructions reviewed with patient as applicable. Potential red flag symptoms discussed with the patient. Reviewed appropriate action plan to take if red flag symptoms occur. Patient agreeable to treatment plan. Darya Borden APRN.CNP [1] Social History Tobacco Use Smoking status: Former Current packs/day: 0.00 Average packs/day: 1 pack/day for 2.0 years (2.0 ttl pk-yrs) Types: Cigarettes Start date: 09/20/1962 Quit date: 09/20/1964 Years since quittin.6 Smokeless tobacco: Never Vaping Use Vaping status: Never Used Substance Use Topics Alcohol use: No Drug use: No documented in this encounter [facility] 05-18-2025 Instructions Darya Borden APRN.CNP - 05/18/2025 10:06 AM EDT - Decrease the carvedilol 6.25 mg twice daily. This replaces your current 12.5 mg dose--do not take the 12.5 mg tablets. - Bring this After Visit Summary into the pharmacy and ask them to fill carvedilol at 6.25 mg twice a day instead of 12.5 mg. 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 - Have blood drawn today for a complete blood count (to check for anemia) and a thyroid level documented in this encounter [facility] 05-01-2025 Radiology Diagnostic study note [facility] Imaging Services [address] [place] [address] CTA Abd/Pelvis W/WO Contrast MR#: [id number] Acct: [id number] Name: LEANA CAMEJO Rep #: [id number] : [id number] M 85 From: Gordo Alcaraz MD PCP: Dr. Dallas Reed MD Status: R EG CLI Study:CTA Abd/Pelvis W/WO Contrast Date of Ex am: 04/30/25 Exam# [id number] Ordering Dr: Villa Hawk MD PROCEDURE: CTA ABD/PELVIS W/WO CONTRAST 04/30/2025 REASON FOR EXAM: AAA, S/P EVAR, COIL OF ENDOLEAK TECHNIQUE: CTA ABD/PELVIS W/WO CONTRAST Multiplanar Sagittal and Coronal images were obtained. 3D and or MIPS post processing was performed CONTRAST: Isovue 370 VOLUME: 100 mL One or more dose reduction techniques were used (e.g., Automated exposure control, adjustment of the mA and/or kV according to patient size, use of iterative reconstruction technique). RADIATION DOSE SUMMARY: CTDlvol: 18.6 mGy DLP: 442.54 mGycm COMPARISON: Prior study dated January 18, 2025. FINDINGS: Aorta: Atherosclerotic plaque formation of the infrarenal abdominal aorta. Persistent aneurysmal dilatation of the [place] abdominal aorta with a transverse dimension of 51 mm. The patient is status post endoluminal stent grafting of the [place] abdominal aortic aneurysm with the proximal tip in the aorta and the distal tip in the common iliac arteries bilaterally. There is evidence of a coil seen along the left side of the distal aortic stent just proximal to the left common iliac artery. Metallic artifact is seen at that site. There is a 2.3 cm by 1.9 cm high density projected over the site of the stent on the left side. This may represent focal contrast accumulation. Iliac Arteries: Graft is patent. Extravascular Findings: Once again, there is a marked degree of splenomegaly. CT/CTA Abd/Pelvis W/WO Contrast IMPRESSION: Status post endoluminal stent grafting as described with coil placed in the distal portion of the abdominal aorta on the left side. Questionable localized contrast retention Reading Location: [facility] CC: Dr. Dustin Hawk MD; Dr. Dallas Reed MD ~ Disc Recordist: Signed [facility] 04-03-2025 Note [facility] 04-03-2025 History of Presen t illness Narrative Images from the original note were not included. CDM Care Path Telephonic Outreach Patient identified by Name and Date of . Discussed care with patient. H@H number provided, will send via [facility] as well Program Details Chronic Disease Management Status: Enrolled Effective Dates: 01/17/2025 - present Responsible Staff: Adriane White RN Support and Services: Congestive Heart Failure (CHF), Hypertension, Chronic Kidney Disease (CKD) Program Goals Targets Target Due Completed Completed By Outcome CKD lab care gaps addressed 04/18/2025 04/03/2025 Luci Matute RN Complete/Scheduled HTN lab care gaps addressed 04/18/2025 04/03/2025 Luci Matute RN Complete/Scheduled Biannual Cardiology visit addressed 04/18/2025 03/20/2025 Adriane White RN Complete/Scheduled Comprehensive CHF education provided 04/18/2025 03/20/2025 Adriane White RN Complete Comprehensive CKD education provided 04/18/2025 03/20/2025 Adriane White RN Complete General education provided (managing stress, where to go/how to contact, etc.) 02/16/2025 02/19/2025 Adriane White RN Complete Comprehensive HTN education provided 04/18/2025 02/19/2025 Adriane White RN Complete Annual Medicare Wellness visit addressed 04/18/2025 02/01/2025 Adriane White RN Complete/Scheduled Annual Nephrology visit addressed 04/18/2025 02/01/2025 Adriane White RN Patient Declined Biannual PCP visit addressed 04/18/2025 02/01/2025 Adriane White RN Complete/Scheduled Intake assessments completed: ADLs, Fall Risk, SDOH 02/16/2025 01/17/2025 Adriane White RN Complete Patient-stated goal addressed (add comment) 04/18/2025 01/17/2025 Adriane White RN Complete Wants to increase leg strength and walking Assessments CDM Assessment Medications: Do you have any questions about taking your medications or which medications you should be taking?: No Do you need any medication refills at this time, including any of the medication you might take only when needed?: No Symptoms: Are you experiencing any new or worsening symptoms that you need to talk about today?: No ADLs No documentation this encounter Fall Risk No documentation this encounter SDOH No documentation this encounter Interventions The following were addressed during this visit: - Month 3: Provide CHF Education: Activity Guidelines/Exercise - HTN lab care gaps addressed - Month 3: Schedule/Order BMP Lab - CKD lab care gaps addressed - Month 3: Schedule/Order Renal Panel Lab Biannually - Bi-Weekly Outreach (Recurring) Disposition Based on assessment nurse practitioner, the following disposition is advised: No action needed Luci Matute RN April 03, 2025 12:29 PM documented in this encounter [facility] 03-28-2025 Telephone encounter Note The patient has been identified by name and date of : Yes Caregiver verified no other encounters exist for this prescription request: Yes Caregiver confirmed with patient/requestor that no other refills are due, in the near future, with this provider at this time: Yes The last office visit in the department: 03/12/2025 Does the patient have a future office visit with this provider/department: Yes 09/12/2025 Requested Prescriptions Pending Prescriptions Disp Refills losartan (COZAAR) 100 mg tablet 90 tablet 1 Sig: Take 1 tablet by mouth once daily. Venessa Grant RN [facility] 03-28-2025 Miscellaneous Notes The patient has been identified by name and date of : Yes Caregiver verified no other encounters exist for this prescription request: Yes Caregiver confirmed with patient/requestor that no other refills are due, in the near future, with this provider at this time: Yes The last office visit in the department: 03/12/2025 Does the patient have a future office visit with this provider/department: Yes 09/12/2025 Requested Prescriptions Pending Prescriptions Disp Refills losartan (COZAAR) 100 mg tablet 90 tablet 1 Sig: Take 1 tablet by mouth once daily. Venessa Grant RN documented in this encounter [facility] 03-20-2025 Note [facility] 03-20-2025 History of Presen t illness Narrative Images from the original note were not included. [facility] Care Path Telephonic Outreach Provider Action/FYI Patient identified by Name and Date of . Discussed care with patient. Patient reports he had his cardiac surgery at [facility] on Wednesday and is recovering well, cathleen any concerns. Program Details Chronic Disease Management Status: Enrolled Effective Dates: 01/17/2025 - present Responsible Staff: Adriane White RN Support and Services: Congestive Heart Failure (CHF), Hypertension, Chronic Kidney Disease (CKD) Program Goals Targets Target Due Completed Completed By Outcome CKD lab care gaps addressed 04/18/2025 -- -- -- HTN lab care gaps addressed 04/18/2025 -- -- -- Biannual Cardiology visit addressed 04/18/2025 03/20/2025 Adriane White RN Complete/Scheduled Comprehensive CHF education provided 04/18/2025 03/20/2025 Adriane White RN Complete Comprehensive CKD education provided 04/18/2025 03/20/2025 Adriane White RN Complete General education provided (managing stress, where to go/how to contact, etc.) 02/16/2025 02/19/2025 Adriane White RN Complete Comprehensive HTN education provided 04/18/2025 02/19/2025 Adriane White RN Complete Annual Medicare Wellness visit addressed 04/18/2025 02/01/2025 Adriane White RN Complete/Scheduled Annual Nephrology visit addressed 04/18/2025 02/01/2025 Adriane White RN Patient Declined Biannual PCP visit addressed 04/18/2025 02/01/2025 Adriane White RN Complete/Scheduled Intake assessments completed: ADLs, Fall Risk, SDOH 02/16/2025 01/17/2025 Adriane White RN Complete Patient-stated goal addressed (add comment) 04/18/2025 01/17/2025 Adriane White RN Complete Wants to increase leg strength and walking Assessments CDM Assessment Medications: Do you have any questions about taking your medications or which medications you should be taking?: No Do you need any medication refills at this time, including any of the medication you might take only when needed?: No Social: It can be normal to feel anxious or down during a time like this. Would you like to talk to a mental health professional about how you have been feeling?: No Symptoms: Are you experiencing any new or worsening symptoms that you need to talk about today?: No ADLs No documentation this encounter Fall Risk No documentation this encounter SDOH No documentation this encounter Interventions The following were addressed during this visit: - Biannual Cardiology visit addressed - Comprehensive CHF education provided - Month 2: Provide CHF Education: Diet Modifications - Comprehensive CKD education provided - Month 2: Provide CKD Education: Renal Diet Basics - Month 2: Provide CKD Education: Controlling Potassium Adriane White RN March 20, 2025 10:23 AM documented in this encounter [facility] 03-19-2025 Telephone encounter Note Spoke with patient to follow up after endograft leak repair on 03/16. Patient reports they are doing well today. He has been feeling well and has no specific complaints. Denies any redness, swelling, or drainage from the procedure site. I advised that the patient follow up with the ordering doctor. We will also obtain a CTA in approximately 6 months to evaluate the graft. He would like to have this done at [facility] as it is much closer to home. I stated we will fax order to [place] and work to schedule imaging there. Patient expressed understanding and thanked me for calling. [facility] 03-19-2025 Miscellaneous Notes Spoke with patient to follow up after endograft leak repair on 03/16. Patient reports they are doing well today. He has been feeling well and has no specific complaints. Denies any redness, swelling, or drainage from the procedure site. I advised that the patient follow up with the ordering doctor. We will also obtain a CTA in approximately 6 months to evaluate the graft. He would like to have this done at [facility] as it is much closer to home. I stated we will fax order to [place] and work to schedule imaging there. Patient expressed understanding and thanked me for calling. documented in this encounter [facility] 03-16-2025 Hospital Discharg e instructions Fide Miller RN - 03/16/2025 5:15 PM EDT Embolization Discharge Instructions Your Recovery This care sheet gives you a general idea about how long it will take for you to recover. However, each person recovers at a different pace. How can you care for yourself at home? Activity - Avoid heavy lifting or strenuous activities for 48-72 hours following your procedure Diet - You may resume your normal diet. If your stomach is upset, try bland, low-fat food like plain rice, broiled chicken, toast and yogurt. - Drink plenty of fluids. Medications - You may resume your home medications the day after the procedure unless otherwise instructed by your doctor. Care of procedure site - Keep the bandage over the procedure site for 48 hours. It is important to keep the site clean and dry during this time. Do not immerse the site in water for a week. - After 48 hours you may remove the bandage and clean the area with a mild soap. - Monitor the site for signs of infection including redness, discharge or swelling. If you are concerned with the site, please contact us. When should you call for help? - If you see pus coming out of the incision site - If there is persistent and worsening swelling/bruising around the incision site. - If the leg on the side of the incision becomes cold or if you begin to lose sensation or motor control in your leg. - For emergent concerns following your procedure please call 911 or go to the nearest emergency room. - For any non-emergent post-procedure questions or concerns, please give us a call between 8am and 5pm. - [facility] Radiology - [phone] - [facility] Radiology - [phone] - For questions after hours, please call [phone] and ask for the on-call Angiography Radiologist. This handout is intended to provide general educational material to assist you in making informed decisions regarding your medical care. Specific questions about your unique medical conditions should be referred to your primary care physician. The following attachments cannot be sent through Care Everywhere.Arteriogram Discharge Instructions (Ethiopian)documented in this encounter [facility] 03-16-2025 Note Conscious sedation w as administered. Patient tolerated the procedure well. Transfer to IR recovery for observation. [facility] 03-16-2025 Nurse Note Conscious sedation was administered. Patient tolerated the procedure well. Transfer to IR recovery for observation. [facility] 03-16-2025 Nurse Note Conscious sedation was administered. Patient tolerated the procedure well. Transfer to IR recovery for observation. Hemostasis achieved Third coil deployed Second coil deployed First coil deployed Patient arrived from IR prep 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 Dr. Bobo in to speak with the patient regarding procedure, and consent was obtained. Patient's lab values and allergies were reviewed. Patient was placed supine on exam table, prepped and draped in sterile fashion. Telemetry monitors were placed. documented in this encounter [facility] 03-16-2025 Nurse Note Hemostasis achieved [facility] 03-16-2025 Nurse Note Third coil deployed [facility] 03-16-2025 Nurse Note Second coil deployed [facility] 03-16-2025 Nurse Note First coil deployed [facility] 03-16-2025 Nurse Note Patient arrived from IR prep 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 Dr. Bobo in to speak with the patient regarding procedure, and consent was obtained. Patient's lab values and allergies were reviewed. Patient was placed supine on exam table, prepped and draped in sterile fashion. Telemetry monitors were placed. [facility] 03-16-2025 Note IVR History & Physic al Inpatient consult to Anesthesiology--For IR procedure Consult performed by: Jacey Abreu NP Consult ordered by: Ana Bobo MD Name: Leana Camejo : 1940 (Age-85 y.o.) Date of Service: Pt seen/examined on 03/16/2025 Procedure Information Date: 03/16/25 Procedure: H&P CONSULT Chief Complaint: Endoleak of aortic graft History Of Present Illness: We are asked to see/evaluate Leana Camejo, a 85 y.o. 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 He follows with Dr. Hawk in [place] for surveillance. CT A/P on 01/18/25 revealed continued increase in size of the endoleak, and it was recommended that patient seek consultation with vascular surgery or IR. S/p unsuccessful aortogram/embolization with Dr. Hawk on 02/14/25. Presents today for the above procedure. Denies exertional chest pain. Denies cardiac stents. Denies h/o CVA, +TIA in 05/2024 with no residual effects. Reports >4 METs - Able to climb a flight of stairs without chest pain ANTICOAGULANT/ANTIPLATELET THERAPY: Yes, ASA 81 mg CHRONIC STEROID USE: No EK11/28/2024 ECHO and EF: 05/24/2024: ECHO/Echo Complete Interpretation Summary Normal LV size. Left ventricular systolic function is normal. The left ventricular ejection fraction is 55 %. The left atrium is mildly enlarged. Bubble contrast study negative for right to left interatrial shunt. Vitals: Vitals Value Taken Time BP 153/80 03/16/25 10:04 Temp 36.2 ?C (97.2 ?F) 03/16/25 10:04 Pulse 76 03/16/25 10:04 Resp 20 03/16/25 10:04 SpO2 96 % 03/16/25 10:04 BMI Classification: Normal Weight (BMI 18.5-24.9) ASSESSMENT/PLAN: Based on the above evaluation, the benefits of the planned procedure likely exceed the risks. The patient is medically optimized to proceed with the planned procedure without any further cardiopulmonary testing. 1) Type II endoleak of aortic graft, AAA s/p EVAR - followed by Dr. Hawk, last visit 2-3 weeks ago - s/p EVAR 04/07/2023, known endoleak that has been increasing in size on surveillance imaging - s/p attempted aortogram, embolization with Dr. Hawk 02/14/25 -- unsuccessful - here today for embolization with IR #) HTN - managed by PCP - elevated today in IR, pt admits to pre-procedural anxiety - checks BPs at home -- reports 110's/60-70's - denies cardiac symptoms BP Readings from Last 3 Encounters: 03/16/25 (!) 153/80 08/10/19 174/75 #) CKD - managed by PCP, no longer follows with nephrology - GFR today 38.5 -- appears stable #) Anemia, TCP - chronic, appears stable - patient denies signs of bleeding #) Carotid stenosis - s/p right CEA with Dr. Perez 01/2021 - takes ASA 81 mg #) HLD - unable to tolerate statins --> muscle pain - not currently taking medications for cholesterol #) Hypothyroidism - followed by PCP - taking synthroid - last TSH 11.3 on 03/12/25 - patient asymptomatic #) BPH - follows with urology - taking doxazosin - denies urinary symptoms Labs Ordered: YES - Per IVR EKG Ordered: NO REVIEW OF SYSTEMS: Review of Systems Constitutional: Positive for chills (gets cold easily). Negative for fatigue and fever. HENT: Negative for congestion and trouble swallowing. Eyes: Negative for visual disturbance. Respiratory: Negative for cough and shortness of breath. Cardiovascular: Negative for chest pain, palpitations and leg swelling. Gastrointestinal: Negative for abdominal pain, blood in stool, nausea and vomiting. Genitourinary: Negative for difficulty urinating and hematuria. Musculoskeletal: Negative for gait problem. Skin: Positive for wound (right hand abrasion -- bumped this morning). Neurological: Negative for speech difficulty, weakness and headaches. Psychiatric/Behavioral: Negative for behavioral problems and confusion. The patient is not nervous/anxious. PHYSICAL EXAM: Physical Exam Vitals and nursing note reviewed. Constitutional: Appearance: Normal appearance. HENT: Head: Normocephalic. Cardiovascular: Rate and Rhythm: Normal rate. Rhythm irregular. Heart sounds: No murmur heard. Pulmonary: Effort: Pulmonary effort is normal. No respiratory distress. Breath sounds: Normal breath sounds. Abdominal: Tenderness: There is no guarding. Musculoskeletal: Cervical back: Normal range of motion. Right lower leg: No edema. Left lower leg: No edema. Skin: General: Skin is warm and dry. Neurological: Mental Status: He is alert and oriented to person, place, and time. Psychiatric: Mood and Affect: Mood normal. Behavior: Behavior normal. Labs: Lab Results Component Value Date WBC 4.4 03/16/2025 HGB 10.2 (L) 03/16/2025 HCT 31.7 (L) 03/16/2025 MCV 93.0 03/16/2025 PLT 87 (L) 03/16/2025 Lab Results Component Value Date (more content not included)... [facility] 03-12-2025 Note Formatting of this n ote might be different from the original. Spoke to patient. Reviewed instructions for procedure. Please arrive to the Main Entrance ([address] [facility]), on ground floor go to registration if you are not pre-registered. If pre-registered, continue on ground floor, follow past [employer] and the [employer], take Elevator 21 to the 2nd floor, and report to 2N/Interventional Radiology 1.5 hours prior to your scheduled appointment. If you are parking in the Main Parking Garage, take the bridge on the 1st Floor, then to ground floor and follow to Elevator 21. Aware of arrival time at 930 am to Interventional Radiology on 03/16/25, nothing to eat after 0000, may have clear liquids (black coffee, tea, juices without pulp, gatorade, gingerale or water) up until 2 hours prior to procedure, and call back # for questions and/or concerns. Aware that ASA 81 mg needs held x 3 days days. Informed that this needs to be approved by physician ordered the medication. Patient is to call us back if any issues with holding the medication. It is ok to take your morning medications except blood thinners as discussed with ordering physician. If you are taking any medication for diabetes, please discuss with your physician for instructions to follow prior to the scheduled procedure since you will not be eating at least 8 hours prior to the procedure. Will need a responsible adult family member or friend to drive you home after the procedure is completed. May not use public transportation unless accompanied by a responsible adult family member or friend. Questions answered. Verbalized understanding. . [facility] 03-12-2025 Note Spoke to patient. Reviewed instructions for procedure. Please arrive to the Main Entrance ([address] [place] [address]), on ground floor go to registration if you are not pre-registered. If pre-registered, continue on ground floor, follow past [employer] and the [employer], take Elevator 21 to the 2nd floor, and report to 2N/Interventional Radiology 1.5 hours prior to your scheduled appointment. If you are parking in the Main Parking Garage, take the bridge on the 1st Floor, then to ground floor and follow to Elevator 21. Aware of arrival time at 930 am to Interventional Radiology on 03/16/25, nothing to eat after 0000, may have clear liquids (black coffee, tea, juices without pulp, gatorade, gingerale or water) up until 2 hours prior to procedure, and call back # for questions and/or concerns. Aware that ASA 81 mg needs held x 3 days days. Informed that this needs to be approved by physician ordered the medication. Patient is to call us back if any issues with holding the medication. It is ok to take your morning medications except blood thinners as discussed with ordering physician. If you are taking any medication for diabetes, please discuss with your physician for instructions to follow prior to the scheduled procedure since you will not be eating at least 8 hours prior to the procedure. Will need a responsible adult family member or friend to drive you home after the procedure is completed. May not use public transportation unless accompanied by a responsible adult family member or friend. Questions answered. Verbalized understanding. . [facility] 03-12-2025 Miscellaneous Notes Spoke to patient. Reviewed instructions for procedure. Please arrive to the Main Entrance ([address] [place] [address]), on ground floor go to registration if you are not pre-registered. If pre-registered, continue on ground floor, follow past [employer] and [employer], take Elevator 21 to the 2nd floor, and report to 2N/Interventional Radiology 1.5 hours prior to your scheduled appointment. If you are parking in the Main Parking Garage, take the bridge on the 1st Floor, then to ground floor and follow to Elevator 21. Aware of arrival time at 930 am to Interventional Radiology on 03/16/25, nothing to eat after 0000, may have clear liquids (black coffee, tea, juices without pulp, gatorade, gingerale or water) up until 2 hours prior to procedure, and call back # for questions and/or concerns. Aware that ASA 81 mg needs held x 3 days days. Informed that this needs to be approved by physician ordered the medication. Patient is to call us back if any issues with holding the medication. It is ok to take your morning medications except blood thinners as discussed with ordering physician. If you are taking any medication for diabetes, please discuss with your physician for instructions to follow prior to the scheduled procedure since you will not be eating at least 8 hours prior to the procedure. Will need a responsible adult family member or friend to drive you home after the procedure is completed. May not use public transportation unless accompanied by a responsible adult family member or friend. Questions answered. Verbalized understanding. . documented in this encounter [facility] 03-12-2025 Miscellaneous Notes Left message for patient. Reviewed instructions for procedure. Please arrive to the Main Entrance ([address] [facility]), on ground floor go to registration if you are not pre-registered. If pre-registered, continue on ground floor, follow past [employer] and the [employer], take Elevator 21 to the 2nd floor, and report to 2N/Interventional Radiology 1.5 hours prior to your scheduled appointment. If you are parking in the Main Parking Garage, take the bridge on the 1st Floor, then to ground floor and follow to Elevator 21. Aware of arrival time at 0930 am to Interventional Radiology on 03/16/25, nothing to eat after 0000, may have clear liquids (black coffee, tea, juices without pulp, gatorade, gingerale or water) up until 2 hours prior to procedure, and call back # for questions and/or concerns. It is ok to take your morning medications except blood thinners as discussed with ordering physician. If you are taking any medication for diabetes, please discuss with your physician for instructions to follow prior to the scheduled procedure since you will not be eating at least 8 hours prior to the procedure. Will need a responsible adult family member or friend to drive you home after the procedure is completed. May not use public transportation unless accompanied by a responsible adult family member or friend. . documented in this encounter [facility] 03-12-2025 Note Formatting of this n ote might be different from the original. Left message for patient. Reviewed instructions for procedure. Please arrive to the Main Entrance ([address] [place] [address]), on ground floor go to registration if you are not pre-registered. If pre-registered, continue on ground floor, follow past [employer] and [employer], take Elevator 21 to the 2nd floor, and report to 2N/Interventional Radiology 1.5 hours prior to your scheduled appointment. If you are parking in the Main Parking Garage, take the bridge on the 1st Floor, then to ground floor and follow to Elevator 21. Aware of arrival time at 0930 am to Interventional Radiology on 03/16/25, nothing to eat after 0000, may have clear liquids (black coffee, tea, juices without pulp, gatorade, gingerale or water) up until 2 hours prior to procedure, and call back # for questions and/or concerns. It is ok to take your morning medications except blood thinners as discussed with ordering physician. If you are taking any medication for diabetes, please discuss with your physician for instructions to follow prior to the scheduled procedure since you will not be eating at least 8 hours prior to the procedure. Will need a responsible adult family member or friend to drive you home after the procedure is completed. May not use public transportation unless accompanied by a responsible adult family member or friend. . [facility] 03-12-2025 Note Left message for pat ient. Reviewed instructions for procedure. Please arrive to the Main Entrance ([address] [place] [address]), on ground floor go to registration if you are not pre-registered. If pre-registered, continue on ground floor, follow past [employer] and [employer], take Elevator 21 to the 2nd floor, and report to 2N/Interventional Radiology 1.5 hours prior to your scheduled appointment. If you are parking in the Main Parking Garage, take the bridge on the 1st Floor, then to ground floor and follow to Elevator 21. Aware of arrival time at 0930 am to Interventional Radiology on 03/16/25, nothing to eat after 0000, may have clear liquids (black coffee, tea, juices without pulp, gatorade, gingerale or water) up until 2 hours prior to procedure, and call back # for questions and/or concerns. It is ok to take your morning medications except blood thinners as discussed with ordering physician. If you are taking any medication for diabetes, please discuss with your physician for instructions to follow prior to the scheduled procedure since you will not be eating at least 8 hours prior to the procedure. Will need a responsible adult family member or friend to drive you home after the procedure is completed. May not use public transportation unless accompanied by a responsible adult family member or friend. . [facility] 03-12-2025 Note [facility] 03-12-2025 History of Presen t illness Narrative CC: Patient presents with: Follow Up: 6 months HPI Recording using Pixelated software for draft documentation of the visit was discussed with the patient/authorized marketing sales representative; all questions welcomed and answered. Patient/authorized marketing sales representative agreed to proceed Krystle Camejo is an 85-year-old male with a history of CHF, hypothyroidism, and diverticulitis, presenting for a 6-month follow-up. CHF: - Chronic - Reports decreased energy levels and fatigue. - Denies Shortness of Breath, chest pain, palpitations, edema, PND, orthopnea - Monitoring blood pressure at home; readings consistently below 120 mmHg. - Adherent to antihypertensive medications; denies dizziness or lightheadedness. - Inquiring about management and improvement of CHF symptoms which he believes is causing the fatigue. Hypothyroidism: - Taking levothyroxine daily on an empty stomach, 30 minutes before eating. - No missed doses reported. - Last thyroid labs checked in November during hospitalization. Aortic Aneurysm: - Undergoing third aortic surgery on Wednesday to repair a leaking graft. - Previous surgeries performed at [facility]; upcoming procedure by Dr. Bobo at [facility]. Review of Systems See HPI PAST MEDICAL HISTORY Diagnosis Date Abdominal aortic aneurysm (AAA) without rupture 08/26/201708/2017: 3.7 cm Anemia Chronic diastolic CHF (congestive heart failure) (HCC) 10/20/[address] 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 Unspecified essential hypertension Essential hypertension PAST SURGICAL HISTORY Procedure Laterality Date ARTHRP ACETBLR/PROX FEM PROSTC AGRFT/ALGRFT 08/02/2006 Hip replacement, total, Right BLEPHAROPLASTY, UPPER EYELID 2013 CAROTID ENDARTERECTOMY Right 01/20/2021 w/ bovine patch angioplasty COLONOSCOPY - DIAGNOSTIC 01/15/2023 collagenous colitis, int hemorrhoids COLONOSCOPY FLX DX W/COLLJ SPEC WHEN PFRMD 03/18/2001 anemia COLONOSCOPY FLX DX W/COLLJ SPEC WHEN PFRMD 05/13/2010 repeat 10 yrs COLONOSCOPY FLX DX W/COLLJ SPEC WHEN PFRMD 05/21/2020 Colonoscopy ENTEROLSS FRING INTSTINAL ADHESION SPX 07/29/2015 ESOPHAGOGASTRODUODENOSCOPY TRANSORAL DIAGNOSTIC 03/18/2001 anemia ESOPHAGOGASTRODUODENOSCOPY TRANSORAL DIAGNOSTIC 05/21/2020 EGD HERNIA REPAIR W/MESH 08/31/2024 Open Spigelian Hernia repair I&D HEMATOMA Right 07/19/2019 CT guided aspiration, iliopsoas hematoma IR AAA ENDO REPAIR 2 LIMB 04/07/2023 AAA stent graft repair, [facility] RPR RECURRENT INCISIONAL HERNIA REDUCIBLE 07/29/2015 PAST SURGICAL HISTORY OF 09/09/2015 left total knee arthroplasty PAST SURGICAL HISTORY OF 09/15/2017 micro-disectomy L4-L5, with microcompression bilaterally. PAST SURGICAL HISTORY OF Right 12/16/2018 Repair of complex lateral meniscus tear, Right knee REPAIR UMBILICAL HERNIA 1980 Dr. Henry STRESS TEST 09/03/2017 normal ALLERGIES Clonidine, Crestor [Rosuvastatin Calcium], Lipitor [Atorvastatin Calcium], Lisinopril, Nifedipine, and Statins [[place]w-Ldk-Ygx Reductase Inhibitors] MEDICATIONS carvedilol (COREG) 12.5 mg tablet Take 1 tablet by mouth two times a day with meals. ezetimibe (ZETIA) 10 mg tablet Take 1 tablet by mouth once daily. furosemide (LASIX) 20 mg tablet Take 1 tablet by mouth once daily. doxazosin (CARDURA) 8 mg tablet Take 1 tablet by mouth daily at bedtime. hydrALAZINE (APRESOLINE) 100 mg tablet Take 1 tablet by mouth three times a day. losartan (COZAAR) 100 mg tablet Take 1 tablet by mouth once daily. levothyroxine (SYNTHROID) 25 mcg tablet Take 1 tablet by mouth daily before breakfast. bempedoic acid (NEXLETOL) 180 mg tablet Take 1 tablet (180 mg) by mouth once daily. fluticasone (FLONASE) 50 mcg/actuation nasal spray Use 1 [place] in each nostril daily at bedtime. aspirin 81 mg chewable tablet Take 1 tablet by mouth once daily. ascorbic acid, vitamin C, 500 mg cap Take 500 mg by mouth once daily. TURMERIC ORAL Take 1 capsule by mouth once daily. ubidecarenone/vitamin E mixed (COQ10 SG 100 ORAL) Take 1 capsule by mouth once daily. levOCARNitine (L-CARNITINE) 500 mg capsule Take 500 mg by mouth once daily. glucosamine/chondr rich A sod (OSTEO BI-FLEX ORAL) Take 2 tablets by mouth once daily. Magnesium 200 mg tab Take 400 mg by mouth once daily. Cholecalciferol, Vitamin D3, 25 mcg (1,000 unit) cap Take 5,000 Units by mouth once daily. multivit-minerals/FA/lycopene (ONE-A-DAY MEN'S ORAL) Take 1 tablet by mouth once daily. vitamin b complex (B COMPLETE) tab Take 1 tablet by mouth once daily. FAMILY HISTORY Problem Relation Age of Onset Cancer Mother oral Cancer Father Lymphnode, Lung, Liver other (brain tumor) Other Social History Tobacco Use Smoking status: Former Current packs/day: 0.00 Average packs/day: 1 pack/day for 2.0 years (2.0 ttl pk-yrs) Types: Cigarettes Start date: 09/20/1962 Quit date: 09/20/1964 Years since quittin.5 Smokeless tobacco: Never Vaping Use Vaping status: Never Used Substance Use Topics Alcohol use: No Drug use: No BP 112/68 Pulse 70 Resp 14 Wt 64.7 kg (142 lb 10.2 oz) SpO2 98% BMI 21.69 kg/m Physical Exam Vitals reviewed. Constitutional: Appearance: Normal appearance. Cardiovascular: Rate and Rhythm: Normal rate and regular rhythm. Pulses: Normal pulses. Heart sounds: Normal heart sounds. Pulmonary: Effort: Pulmonary effort is normal. Breath sounds: Normal breath sounds. No wheezing, rhonchi or rales. Musculoskeletal: Right lower leg: No edema. Left lower leg: No edema. Skin: General: Skin is warm and dry. Neurological: Mental Status: He is alert. Psychiatric: Mood and Affect: Mood normal. Health maintenance reviewed with patient: Advance Directive Discussion due on 09/20/2024 Covid-19 Vaccine( - season) due on 07/17/2025 DTaP,Tdap,Td Vaccine(1 - Tdap) due on 09/07/2025 RSV Vaccine(1 - 1-dose 75+ series) due on 09/07/2025 Shingrix Vaccine(2 of 3) due on 09/07/2025 Influenza Vaccine(Season Ended) due on 05/21/2025 Depression Screening due on 09/07/2025 Anxiety Screening due on 09/07/2025 Medicare Annual Wellness Visit due on 09/07/2025 Diabetes Screening due on 12/02/2027 Pneumococcal Vaccine: 50+ Completed DATA REVIEWED: Most recent labs Assessment/Plan 1. Subclinical hypothyroidism (E03.8) - Last thyroid function tests were performed in November during hospitalization; results may have been skewed due to acute illness. - Ordered repeat thyroid function tests to assess current status and determine if any adjustments to levothyroxine therapy are necessary. - Patient is compliant with levothyroxine, taking it daily on an empty stomach 30 minutes before meals. 2. Fatigue, unspecified type (R53.83) - Likely multifactorial, related to recent hospitalizations, medications, and chronic medical conditions. - Discussed the importance of managing underlying conditions and following medical recommendations. - Rechecking thyroid function to rule out hypothyroidism as a contributing factor. 3. 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 Bobo at [facility] on Wednesday. - This will be the third procedure to address the endoleak. 4. Anemia of chronic disease (D63.8) - Anemia noted in November has improved based on recent labs ordered by Dr. Hawk last month. - No further intervention required at this time. 5. Stage 3b chronic kidney disease (HCC) (N18.32) - Kidney function remains stable based on recent lab results. - Continue current management and monitoring. 6. Essential hypertension (I10) - Blood pressure well-controlled at 112/68 mmHg. - Patient is compliant with antihypertensive medications without side effects. - Continue current medication regimen and home blood pressure monitoring. 7. Chronic diastolic CHF (congestive heart failure) (HCC) (I50.32) - Educated patient on the chronic nature of CHF and the importance of dietary sodium restriction. - Discussed symptoms to monitor for, including increased dyspnea, chest pain, edema, and rapid weight gain. - Advised that fatigue is likely due to multiple factors, not solely CHF. - Consider referral to cardiology for further evaluation if symptoms persist or worsen. Prescription instructions reviewed with patient as applicable. Potential red flag symptoms discussed with the patient. Reviewed appropriate action plan to take if red flag symptoms occur. Patient agreeable to treatment plan. Darya Borden APRN.CNP documented in this encounter [facility] 03-12-2025 Instructions Darya Borden APRN.CNP - 03/12/2025 9:00 AM EDT - Go to the lab today for a thyroid function test (no fasting required) so we can check your levothyroxine dose. - Maintain a low-salt diet to help manage your heart failure. - Monitor your weight and watch for sudden weight gain, increased shortness of breath, chest pain, or new swelling in your legs or abdomen; call the office if any of these occur. - Keep checking your blood pressure at home and record your readings. - Attend your scheduled aortic repair procedure this Wednesday in [place] with Dr. Bobo. - Continue caring for the superficial skin sore on your bottom--keep it clean and dressed--and let us know if it worsens or shows signs of infection. documented in this encounter [facility] 03-02-2025 Note [facility] 03-02-2025 History of Presen t illness Narrative Images from the original note were not included. [facility] Telephonic Outreach Provider Action/FYI Patient identified by Name and Date of . Discussed care with patient. Program Details Chronic Disease Management Status: Enrolled Effective Dates: 01/17/2025 - present Responsible Staff: Adriane White RN Support and Services: Congestive Heart Failure (CHF), Hypertension, Chronic Kidney Disease (CKD) Program Goals Targets Target Due Completed Completed By Outcome Biannual Cardiology visit addressed 04/18/2025 -- -- -- CKD lab care gaps addressed 04/18/2025 -- -- -- Comprehensive CHF education provided 04/18/2025 -- -- -- Comprehensive CKD education provided 04/18/2025 -- -- -- HTN lab care gaps addressed 04/18/2025 -- -- -- General education provided (managing stress, where to go/how to contact, etc.) 02/16/2025 02/19/2025 Adriane White RN Complete Comprehensive HTN education provided 04/18/2025 02/19/2025 Adriane White RN Complete Annual Medicare Wellness visit addressed 04/18/2025 02/01/2025 Adriane White RN Complete/Scheduled Annual Nephrology visit addressed 04/18/2025 02/01/2025 Adriane White RN Patient Declined Biannual PCP visit addressed 04/18/2025 02/01/2025 Adriane White RN Complete/Scheduled Intake assessments completed: ADLs, Fall Risk, SDOH 02/16/2025 01/17/2025 Adriane White RN Complete Patient-stated goal addressed (add comment) 04/18/2025 01/17/2025 Adriane White RN Complete Wants to increase leg strength and walking Assessments CDM Assessment Medications: Do you have any questions about taking your medications or which medications you should be taking?: No Do you need any medication refills at this time, including any of the medication you might take only when needed?: No Social: It can be normal to feel anxious or down during a time like this. Would you like to talk to a mental health professional about how you have been feeling?: No Symptoms: Are you experiencing any new or worsening symptoms that you need to talk about today?: No ADLs No documentation this encounter Fall Risk No documentation this encounter SDOH No documentation this encounter Interventions The following were addressed during this visit: - Month 1: Provide CHF Education: Understanding Heart Failure - Month 1: Provide CHF Education: Heart Failure Zones - Month 1: Provide CKD Education: CKD PAVEL Education - Month 1: Provide CKD Education: CKD Zones - Month 1: Provide CKD Education: About CKD Adriane White RN March 02, 2025 11:50 AM documented in this encounter [facility] 03-01-2025 Consult note Formatting of th is note is different from the original. Interventional Radiology Consultation March 01, 2025 Assessment/Plan: Type II endoleak with growing abdominal aortic aneurysm s/p EVAR - Will attempt transarterial approach to the MUNDO via arc of riolan. If unsuccessful, will plan for translumbar approach. Medical Problems Subjective: History of Present Illness Mr. 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 Review of the CTA shows anatomy amenable to type II endoleak repair via a patent arc of Riolan which does communicate to the inferior mesenteric artery origin. We discussed the procedure which involves a catheterization under conscious sedation and embolization with coils and Ernesto via the above-mentioned approach. Risks of bleeding, infection, and nontarget embolization including bowel infarction and need for surgery were discussed. We did briefly discuss possibility of unsuccessful catheterization of the inflow/outflow arteries and failure to embolize the endoleak nidus and the possibility of a repeat attempt with a translumbar approach. Objective: There were no vitals filed for this visit. Allergies[1] Medical History[2] Surgical History[3] Tobacco Use History[4] Social History Substance and Sexual Activity Alcohol Use Not Currently Social History Substance and Sexual Activity Drug Use Not on file Current Medications[5] I have personally reviewed pertinent imaging and laboratory results. This procedure has been fully reviewed with the patient. All questions answered to his satisfaction. Patient was identified and seen today via Telehealth by agreement and consent. I used the following Telehealth technology: Audio capability only. Total length of call 10 minutes. The patient was offered video for a more comprehensive evaluation, but the patient declined or was unable to use video. Patient location: Home. This patient encounter is appropriate and reasonable under the circumstances: Patient commute to office location would cause undue burden. The patient has been advised of the potential risks and limitations of this mode of treatment (including but not limited to the absence of in-person examination) and has agreed to be treated in a remote fashion in spite of them. Any and all of the patient's/patient's family's questions on this issue have been answered and I have made no promises or guarantees to the patient. The patient has also been advised to contact this office for worsening conditions or problems, and seek emergency medical treatment and/or call 911 if the patient deems either necessary. The patient stated that they are currently in the [facility]. If the patient is a minor, permission has been obtained by the parent or guardian for the patient to receive medical care at this visit. [1] Not on File [2] Past Medical History: Diagnosis Date Contusion of knee Degenerative joint disease Hypertension Synovial cyst of popliteal space Vitiligo [3] Past Surgical History: Procedure Laterality Date APPENDECTOMY 1944 BLEPHAROPLASTY Bilateral CATARACT EXTRACTION W/ INTRAOCULAR LENS IMPLANT Bilateral HERNIA REPAIR X2 1979, 2006 JOINT REPLACEMENT 2014 JOINT REPLACEMENT 1998 KNEE ARTHROSCOPY 11/2018 OTHER SURGICAL HISTORY Right 07/19/2019 CT Abdominal abscess aspiration TONSILLECTOMY (HISTORICAL) [4] Social History Tobacco Use Smoking Status Former Smokeless Tobacco Never [5] No current outpatient medications on file. No current facility-administered medications for this visit. T [facility] 03-01-2025 Consult note Formatting of th is note is different from the original. Interventional Radiology Consultation March 01, 2025 Assessment/Plan: Type II endoleak with growing abdominal aortic aneurysm s/p EVAR - Will attempt transarterial approach to the MUNDO via arc of riolan. If unsuccessful, will plan for translumbar approach. Medical Problems Subjective: History of Present Illness Mr. 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 Review of the CTA shows anatomy amenable to type II endoleak repair via a patent arc of Riolan which does communicate to the inferior mesenteric artery origin. We discussed the procedure which involves a catheterization under conscious sedation and embolization with coils and [place] via the above-mentioned approach. Risks of bleeding, infection, and nontarget embolization including bowel infarction and need for surgery were discussed. We did briefly discuss possibility of unsuccessful catheterization of the inflow/outflow arteries and failure to embolize the endoleak nidus and the possibility of a repeat attempt with a translumbar approach. Objective: There were no vitals filed for this visit. Allergies[1] Medical History[2] Surgical History[3] Tobacco Use History[4] Social History Substance and Sexual Activity Alcohol Use Not Currently Social History Substance and Sexual Activity Drug Use Not on file Current Medications[5] I have personally reviewed pertinent imaging and laboratory results. This procedure has been fully reviewed with the patient. All questions answered to his satisfaction. Patient was identified and seen today via Telehealth by agreement and consent. I used the following Telehealth technology: Audio capability only. Total length of call 10 minutes. The patient was offered video for a more comprehensive evaluation, but the patient declined or was unable to use video. Patient location: Home. This patient encounter is appropriate and reasonable under the circumstances: Patient commute to office location would cause undue burden. The patient has been advised of the potential risks and limitations of this mode of treatment (including but not limited to the absence of in-person examination) and has agreed to be treated in a remote fashion in spite of them. Any and all of the patient's/patient's family's questions on this issue have been answered and I have made no promises or guarantees to the patient. The patient has also been advised to contact this office for worsening conditions or problems, and seek emergency medical treatment and/or call 911 if the patient deems either necessary. The patient stated that they are currently in the [facility]. If the patient is a minor, permission has been obtained by the parent or guardian for the patient to receive medical care at this visit. [1] Not on File [2] Past Medical History: Diagnosis Date Contusion of knee Degenerative joint disease Hypertension Synovial cyst of popliteal space Vitiligo [3] Past Surgical History: Procedure Laterality Date APPENDECTOMY 1944 BLEPHAROPLASTY Bilateral CATARACT EXTRACTION W/ INTRAOCULAR LENS IMPLANT Bilateral HERNIA REPAIR X2 1979, 2006 JOINT REPLACEMENT 2014 JOINT REPLACEMENT 1998 KNEE ARTHROSCOPY 11/2018 OTHER SURGICAL HISTORY Right 07/19/2019 CT Abdominal abscess aspiration TONSILLECTOMY (HISTORICAL) [4] Social History Tobacco Use Smoking Status Former Smokeless Tobacco Never [5] No current outpatient medications on file. No current facility-administered medications for this visit. documented in this encounter [facility] 03-01-2025 Note Interventional Radio logy Consultation March 01, 2025 Assessment/Plan: Type II endoleak with growing abdominal aortic aneurysm s/p EVAR - Will attempt transarterial approach to the MUNDO via arc of riolan. If unsuccessful, will plan for translumbar approach. Medical Problems Subjective: History of Present Illness Mr. 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 Review of the CTA shows anatomy amenable to type II endoleak repair via a patent arc of Riolan which does communicate to the inferior mesenteric artery origin. We discussed the procedure which involves a catheterization under conscious sedation and embolization with coils and [place] via the above-mentioned approach. Risks of bleeding, infection, and nontarget embolization including bowel infarction and need for surgery were discussed. We did briefly discuss possibility of unsuccessful catheterization of the inflow/outflow arteries and failure to embolize the endoleak nidus and the possibility of a repeat attempt with a translumbar approach. Objective: There were no vitals filed for this visit. Allergies[1] Medical History[2] Surgical History[3] Tobacco Use History[4] Social History Substance and Sexual Activity Alcohol Use Not Currently Social History Substance and Sexual Activity Drug Use Not on file Current Medications[5] I have personally reviewed pertinent imaging and laboratory results. This procedure has been fully reviewed with the patient. All questions answered to his satisfaction. Patient was identified and seen today via Telehealth by agreement and consent. I used the following Telehealth technology: Audio capability only. Total length of call 10 minutes. The patient was offered video for a more comprehensive evaluation, but the patient declined or was unable to use video. Patient location: Home. This patient encounter is appropriate and reasonable under the circumstances: Patient commute to office location would cause undue burden. The patient has been advised of the potential risks and limitations of this mode of treatment (including but not limited to the absence of in-person examination) and has agreed to be treated in a remote fashion in spite of them. Any and all of the patient's/patient's family's questions on this issue have been answered and I have made no promises or guarantees to the patient. The patient has also been advised to contact this office for worsening conditions or problems, and seek emergency medical treatment and/or call 911 if the patient deems either necessary. The patient stated that they are currently in the [facility]. If the patient is a minor, permission has been obtained by the parent or guardian for the patient to receive medical care at this visit. [1] Not on File [2] Past Medical History: Diagnosis Date Contusion of knee Degenerative joint disease Hypertension Synovial cyst of popliteal space Vitiligo [3] Past Surgical History: Procedure Laterality Date APPENDECTOMY 1944 BLEPHAROPLASTY Bilateral CATARACT EXTRACTION W/ INTRAOCULAR LENS IMPLANT Bilateral HERNIA REPAIR X2 1979, 2006 JOINT REPLACEMENT 2014 JOINT REPLACEMENT 1998 KNEE ARTHROSCOPY 11/2018 OTHER SURGICAL HISTORY Right 07/19/2019 CT Abdominal abscess aspiration TONSILLECTOMY (HISTORICAL) [4] Social History Tobacco Use Smoking Status Former Smokeless Tobacco Never [5] No current outpatient medications on file. No current facility-administered medications for this visit. [facility] 02-26-2025 Note [facility] 02-26-2025 History of Presen t illness Narrative Value based Operations Care Management Heart Failure Guideline Directed Medical Therapy (GDMT) Program Provider Action / FYI: Chart Review Guideline Directed Medical Therapy (GDMT) Program Last HF admission: NA GDMT Score: 5 Last Echocardiogram: 11/29/24 Ejection Fraction: 57 Basic Metabolic Panel (BMP): 12/01/24 Estimated Glomerular Filtration Rate (eGFR): 43 N-terminal pro B-type natriuretic peptide (NT proBNP): 11/27/24 Heart Failure (HF) Diagnosis: 10/20/16 Heart Failure Status: HFpEF - HF diagnosis, EF >=40%, non-dialysis Action Taken: GDMT score is <=6 and EF >40% - Continued Management via [facility] Adriane White RN February 26, 2025 2:28 PM documented in this encounter [facility] 02-19-2025 Note [facility] 02-19-2025 History of Presen t illness Narrative Images from the original note were not included. [facility] Telephonic Outreach Provider Action/FYI Patient identified by Name and Date of . Discussed care with patient. Program Details Chronic Disease Management Status: Enrolled Effective Dates: 01/17/2025 - present Responsible Staff: Adriane White RN Support and Services: Congestive Heart Failure (CHF), Hypertension, Chronic Kidney Disease (CKD) Program Goals Targets Target Due Completed Completed By Outcome Biannual Cardiology visit addressed 04/18/2025 -- -- -- CKD lab care gaps addressed 04/18/2025 -- -- -- Comprehensive CHF education provided 04/18/2025 -- -- -- Comprehensive CKD education provided 04/18/2025 -- -- -- HTN lab care gaps addressed 04/18/2025 -- -- -- General education provided (managing stress, where to go/how to contact, etc.) 02/16/2025 02/19/2025 Adriane White RN Complete Comprehensive HTN education provided 04/18/2025 02/19/2025 Adriane White RN Complete Annual Medicare Wellness visit addressed 04/18/2025 02/01/2025 Adriane White RN Complete/Scheduled Annual Nephrology visit addressed 04/18/2025 02/01/2025 Adriane White RN Patient Declined Biannual PCP visit addressed 04/18/2025 02/01/2025 Adriane White RN Complete/Scheduled Intake assessments completed: ADLs, Fall Risk, SDOH 02/16/2025 01/17/2025 Adriane White RN Complete Patient-stated goal addressed (add comment) 04/18/2025 01/17/2025 Adriane White RN Complete Wants to increase leg strength and walking Assessments CDM Assessment Medications: Do you have any questions about taking your medications or which medications you should be taking?: No Do you need any medication refills at this time, including any of the medication you might take only when needed?: No Social: It can be normal to feel anxious or down during a time like this. Would you like to talk to a mental health professional about how you have been feeling?: No Symptoms: Are you experiencing any new or worsening symptoms that you need to talk about today?: No ADLs No documentation this encounter Fall Risk No documentation this encounter SDOH No documentation this encounter Interventions The following were addressed during this visit: - Month 1: Provide Heart Failure Video & CHF PAVEL Education - Month 2: Provide CHF Education: Keeping Track of Your Weight - Comprehensive HTN education provided - Month 1: Review Individual Blood Pressure Target (If established by provider) - Month 1: Provide HTN Education: What is High Blood Pressure - Month 1: Provide HTN Education: When to call your Doctor, When to seek Emergency Care - Month 2: Provide HTN Education: Sodium Controlled Diets - Month 2: Provide HTN Education: High Blood Pressure & Nutrition - Month 3: Provide HTN Education: Understanding Medications - Month 3: Provide HTN Education: Medication Compliance - General education provided (managing stress, where to go/how to contact, etc.) - Month 1: Provide General Education: Smoking Cessation - Month 1: Provide General Education: Managing Stress & Anxiety - Month 1: Provide General Education: Where to Go for Care - Month 1: Provide General Education: How to Contact Your Physician Team - Bi-Weekly Outreach (Recurring) Adriane White RN February 19, 2025 11:36 AM documented in this encounter [facility] 02-15-2025 Telephone encounter Note The patient has been identified by name and date of : Yes Caregiver verified no other encounters exist for this prescription request: Yes Caregiver confirmed with patient/requestor that no other refills are due, in the near future, with this provider at this time: Yes The last office visit in the department: 12/08/2024 Does the patient have a future office visit with this provider/department: Yes 03/12/2025 Requested Prescriptions Pending Prescriptions Disp Refills ezetimibe (ZETIA) 10 mg tablet 90 tablet 3 Sig: Take 1 tablet by mouth once daily. furosemide (LASIX) 20 mg tablet 90 tablet Sig: Take 1 tablet by mouth once daily. doxazosin (CARDURA) 8 mg tablet 90 tablet 3 Sig: Take 1 tablet by mouth daily at bedtime. Adriana Short LPN February 15, 2025 4:50 PM [facility] 02-15-2025 Miscellaneous Notes The patient has been identified by name and date of : Yes Caregiver verified no other encounters exist for this prescription request: Yes Caregiver confirmed with patient/requestor that no other refills are due, in the near future, with this provider at this time: Yes The last office visit in the department: 12/08/2024 Does the patient have a future office visit with this provider/department: Yes 03/12/2025 Requested Prescriptions Pending Prescriptions Disp Refills ezetimibe (ZETIA) 10 mg tablet 90 tablet 3 Sig: Take 1 tablet by mouth once daily. furosemide (LASIX) 20 mg tablet 90 tablet Sig: Take 1 tablet by mouth once daily. doxazosin (CARDURA) 8 mg tablet 90 tablet 3 Sig: Take 1 tablet by mouth daily at bedtime. Adriana Short LPN February 15, 2025 4:50 PM documented in this encounter [facility] 02-15-2025 Telephone encounter Note Prescription Refill Information The patient has been identified by name and date of : Yes Caregiver verified no other encounters exist for this prescription request: Yes Caregiver confirmed with patient/requestor that no other refills are due, in the near future, with this provider at this time: Yes The last office visit in the department: 12/08/24 Does the patient have a future office visit with this provider/department: Yes Requested Prescriptions Pending Prescriptions Disp Refills carvedilol (COREG) 12.5 mg tablet 180 tablet 3 Sig: Take 1 tablet by mouth two times a day with meals. Please send by tomorrow, he is out on the weekend. Monica Ball [facility] February 15, 2025 4:40 PM [facility] 02-15-2025 Miscellaneous Notes Prescription Refill Information The patient has been identified by name and date of : Yes Caregiver verified no other encounters exist for this prescription request: Yes Caregiver confirmed with patient/requestor that no other refills are due, in the near future, with this provider at this time: Yes The last office visit in the department: 12/08/24 Does the patient have a future office visit with this provider/department: Yes Requested Prescriptions Pending Prescriptions Disp Refills carvedilol (COREG) 12.5 mg tablet 180 tablet 3 Sig: Take 1 tablet by mouth two times a day with meals. Please send by tomorrow, he is out on the weekend. Monica Ball [facility] February 15, 2025 4:40 PM documented in this encounter [facility] 02-14-2025 Procedure note [facility] 02-14-2025 History and physical note Note Date/Time February 14, 2025 11:36am [facility] Medical Records Department [address] [place] [address] History & Physical Exam 02/14/25 1133 MR#: [id number] Acct: [id number] Name: LEANA CAMEJO Rep #:[id number] : 1940 85 From: Dustin Hawk MD PCP: Dr. Dallas Reed MD Status:R [facility] Location: [facility] HPI - General HPI Narrative LEANA CAMEJO, is a 85 M who presents with prior EVAR with type II endoleak, increasing residual sac. Patent MUNDO with robust communication with SMA; 2 lumbararteries. 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 Hyperlipidemia Diverticulosis Pre-operative cardiovascular examination Anemia 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, NYHA class 2 RSV (respiratory syncytial virus pneumonia) Shortness of breath Cough productive of purulent sputum Home Medications ?Medication ?Instructions ?Recorded ?Last Taken ?Type losartan 100 mg tablet 100 mg PO DAILY BP 05/17/19 02/14/25 History multivitamin 1 tab PO DAILY supplement 05/21/24 History ascorbic acid (vitamin C) 500 mg 1,000 mg PO DAILY sup plement 02/14/20 05/23/24 History capsule carvedilol 12.5 mg tablet 12.5 mg PO BID heart #180 ta bs 11/12/21 02/14/25 Rx doxazosin 8 mg tablet 8 mg PO QHS prostate 4 01/10/25 History hydralazine 100 mg tablet 100 mg PO TID blood pressure 05/23/24 02/14/25 History magnesium oxide 400 mg (241.3 mg 400 mg PO DAILY suppl ement 05/23/24 05/21/24 History magnesium) tablet aspirin 81 mg chewable tablet 81 mg PO BREAKFAST 30 da ys #30 tabs 05/24/24 01/12/25 Rx bempedoic acid 180 mg tablet 180 mg PO DAILY 07/11/24 01/12/25 History (Nexletol) ezetimibe 10 mg tablet 10 mg PO DAILY 07/11/2401/19 History levothyroxine 25 mcg tablet 25 mcg PO DAILY 11/28/24 0 02/14/25 History amoxicillin 875 mg-potassium 875 mg PO Q12H #20 TABLET S 01/12/25 Unknown Rx clavulanate 125 mg tablet cholecalciferol (vitamin D3) 125 125 mcg PO DAILY 12/20 02/11 Unknown History mcg (5,000 unit) tablet (Vitamin D3) ferrous sulfate 325 mg (65 mg 325 mg PO DAILY 01/12/25 01/12/25 History iron) tablet (Feosol) fluticasone propionate 50 1 spray intranasal QHS PRN n mary 01/12/25 Unknown History mcg/actuation nasal congestion spray,suspension nifedipine 60 mg tablet,extended 60 mg PO DAILY 02/14/25 History release Allergy/AdvReac Type Severity Reaction Status Date / Time lisinopril Allergy Intermediate Rash Verified 01/12/25 10:29 atorvastatin calcium (From Allergy Other Verified 01/12/25 10:29 Lipitor) clonidine Allergy Unknown Verified 01/12/25 10:29 rosuvastatin calcium (From Allergy Other Verified 01/12/25 10:29 Crestor) Cjllmjn-VCX-EhJ Reductase Allergy Other Verified 01/12/25 10:29 Inhibitor (Stxsobe-Bsw-Xsm Reductase Inhibitor) Family History Father Lung cancer Liver cancer Mother Oral cancer Surgical History S/P spigelian hernia repair, follow-up exam S/P AAA repair History of right-sided carotid endarterectomy Hx of cataract surgery Hx of appendectomy History of tonsillectomy History of back surgery History of colonoscopy History of blepharoplasty History of inguinal hernia repair History of umbilical hernia repair 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 Social History household members: spouse Smoking Status: Former smoker second hand exposure: No alcohol intake: never substance use type: does not use caffeine: Yes Type: coffee Number of servings: 2 ROS Constitutional Constitutional: Denies chills, fever(s), frequent falls, lethargy or weakness Eyes Eyes: Denies blind spots, change in vision or loss of vision ENT HEENT: Denies bleeding gums, hoarseness or sore throat Cardiovascular Cardiovascular: Denies abdominal pain, bluish discoloration of hand/feet, chest pain with activity, claudication, cold extremities, cyanosis, dyspnea on exertion, erythema on extremities, irregular heart rhythm, leg edema, leg ulcers, numbness in extremities or weakness in extremities Respiratory/Chest Respiratory/Chest: Denies cough, excessive phlegm production, shortness of breath at rest, shortness of breath with exertion or wheezing Gastrointestinal Gastrointestinal: Denies anorexia, change in stool character, constipation, diarrhea, melena or rectal bleeding Genitourinary Genitourinary: Denies dysuria or hematuria Musculoskeletal Musculoskeletal: Denies abnormal gait Integumentary Integumentary: Reports other Details: ; Denies erythema, non-healing lesions or wounds Neurologic Neurologic: Denies abnormal speech, focal weakness, headache(s), loss of vision,numbness, paresthesias or sensory deficit Hematologic/Lymphatic Hematologic/Lymphatic: Denies easy bleeding, easy bruising or lymphadenopathy Vital Signs Vital Signs Vital Signs: Weight Weight: 148 lb Body Mass Index (BMI) 22.5 Physical Exam Const alert, oriented x3, no apparent distress and healthy appearing General Appearance: cooperative; Negative for combative or lethargic Orientation / Consciousness: awake Exam Limitations: no limitations HEENT Head and Scalp: normocephalic and atraumatic Eyes EOMs intact bilaterally General Eye: normal appearance of both eyes Neck full ROM and no lymphadenopathy General: trachea midline Resp normal respiratory effort and no use of accessory muscles Effort and Inspection: Negative for labored, stridor or audible wheezes Cardio regular rate and regular rhythm Peripheral Pulses: brachial pulses present and radial pulses present Back/Spine Cervical Spine: cervical ROM normal Extremity full ROM, normal capillary refill and no clubbing, cyanosis or edema Skin no rashes or lesions noted and no wounds Neuro oriented x3, CN's II-XII intact bilaterally, no focal motor deficits and no sensory deficits noted Psych thought process normal, cooperative, affect normal, speech normal and activity/motor behavior normal Results Lab / Micro Data 02/14/25 09:29 02/14/25 09:29 Labs: Laboratory Results - last 24 hr 02/14/25 09:29: WBC 6.0, RBC 3.79 L, Hgb 11.6 L, Hct 35.2 L, MCV 92.9, MCH 30.6,MCHC 33.0, RDW Std Deviation 51.3 H, RDW Coeff of Erma 15.0 H, Plt Count 113 L, MPV 11.1, Sodium 139, Potassium 4.5, Chloride 102, Carbon Dioxide 25.1, Anion Gap 12, BUN 50 H, Creatinine 1.73 H, Estim Creat Clear Calc 29.64 L, Est GFR (MDRD) Non-Af 38 L, BUN/Creatinine Ratio 28.6 H, Glucose 110 H, Calcium 9.5 Assessment & Plan Assessment/Plan (1) Type II endoleak of aortic graft: PLAN: -angio, possible coil MUNDO 02/14/25 1136 <Electronically signed by Dustin Hawk MD> Cosigner Signature (if applicable): CC: Dr. Dustin Hawk MD; Dr. Dallas Reed MD~ Signed [facility] Work Phone: [phone]) 987-304105-28-2025 History and physical note [facility] Medical Records Department [address] [place] [address] History & Physical Exam 02/14/25 1133 MR#: [id number] Acct: [id number] Name: LEANA CAMEJO Rep #:[id number] : 1940 85 From: Dustin Hawk MD PCP: Dr. Dallas Reed MD Status:R [facility] Location: [facility] HPI - General HPI Narrative LEANA CAMEJO, is a 85 M who presents with prior EVAR with type II endoleak, increasing residual sac. Patent MUNDO with robust communication with SMA; 2 lumbararteries. 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 Hyperlipidemia Diverticulosis Pre-operative cardiovascular examination Anemia 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, NYHA class 2 RSV (respiratory syncytial virus pneumonia) Shortness of breath Cough productive of purulent sputum Home Medications ?Medication ?Instructions ?Recorded ?Last Taken ?Type losartan 100 mg tablet 100 mg PO DAILY BP 05/17/19 02/14/25 History multivitamin 1 tab PO DAILY supplement 05/21/24 History ascorbic acid (vitamin C) 500 mg 1,000 mg PO DAILY sup plement 02/14/20 05/23/24 History capsule carvedilol 12.5 mg tablet 12.5 mg PO BID heart #180 ta bs 11/12/21 02/14/25 Rx doxazosin 8 mg tablet 8 mg PO QHS prostate 4 01/10/25 History hydralazine 100 mg tablet 100 mg PO TID blood pressure 05/23/24 02/14/25 History magnesium oxide 400 mg (241.3 mg 400 mg PO DAILY suppl ement 05/23/24 05/21/24 History magnesium) tablet aspirin 81 mg chewable tablet 81 mg PO BREAKFAST 30 da ys #30 tabs 05/24/24 01/12/25 Rx bempedoic acid 180 mg tablet 180 mg PO DAILY 07/11/24 01/12/25 History (Nexletol) ezetimibe 10 mg tablet 10 mg PO DAILY 07/11/2401/19 History levothyroxine 25 mcg tablet 25 mcg PO DAILY 11/28/24 0 02/14/25 History amoxicillin 875 mg-potassium 875 mg PO Q12H #20 TABLET S 01/12/25 Unknown Rx clavulanate 125 mg tablet cholecalciferol (vitamin D3) 125 125 mcg PO DAILY 12/20 02/11 Unknown History mcg (5,000 unit) tablet (Vitamin D3) ferrous sulfate 325 mg (65 mg 325 mg PO DAILY 01/12/25 01/12/25 History iron) tablet (Feosol) fluticasone propionate 50 1 spray intranasal QHS PRN n mary 01/12/25 Unknown History mcg/actuation nasal congestion spray,suspension nifedipine 60 mg tablet,extended 60 mg PO DAILY 02/14/25 History release Allergy/AdvReac Type Severity Reaction Status Date / Time lisinopril Allergy Intermediate Rash Verified 01/12/25 10:29 atorvastatin calcium (From Allergy Other Verified 01/12/25 10:29 Lipitor) clonidine Allergy Unknown Verified 01/12/25 10:29 rosuvastatin calcium (From Allergy Other Verified 01/12/25 10:29 Crestor) Nmvciil-DSU-EoG Reductase Allergy Other Verified 01/12/25 10:29 Inhibitor (Drgophl-Uns-Nwm Reductase Inhibitor) Family History Father Lung cancer Liver cancer Mother Oral cancer Surgical History S/P spigelian hernia repair, follow-up exam S/P AAA repair History of right-sided carotid endarterectomy Hx of cataract surgery Hx of appendectomy History of tonsillectomy History of back surgery History of colonoscopy History of blepharoplasty History of inguinal hernia repair History of umbilical hernia repair 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 Social History household members: spouse Smoking Status: Former smoker second hand exposure: No alcohol intake: never substance use type: does not use caffeine: Yes Type: coffee Number of servings: 2 ROS Constitutional Constitutional: Denies chills, fever(s), frequent falls, lethargy or weakness Eyes Eyes: Denies blind spots, change in vision or loss of vision ENT HEENT: Denies bleeding gums, hoarseness or sore throat Cardiovascular Cardiovascular: Denies abdominal pain, bluish discoloration of hand/feet, chest pain with activity,claudication, cold extremities, cyanosis, dyspnea on exertion, erythema on extremities, irregular heart rhythm, leg edema, leg ulcers, numbness in extremities or weakness in extremities Respiratory/Chest Respiratory/Chest: Denies cough, excessive phlegm production, shortness of breath at rest, shortness of breath with exertion or wheezing Gastrointestinal Gastrointestinal: Denies anorexia, change in stool character, constipation, diarrhea, melena or rectal bleeding Genitourinary Genitourinary: Denies dysuria or hematuria Musculoskeletal Musculoskeletal: Denies abnormal gait Integumentary Integumentary: Reports other Details: ; Denies erythema, non-healing lesions or wounds Neurologic Neurologic: Denies abnormal speech, focal weakness, headache(s), loss of vision,numbness, paresthesias or sensory deficit Hematologic/Lymphatic Hematologic/Lymphatic: Denies easy bleeding, easy bruising or lymphadenopathy Vital Signs Vital Signs Vital Signs: Weight Weight: 148 lb Body Mass Index (BMI) 22.5 Physical Exam Const alert, oriented x3, no apparent distress and healthy appearing General Appearance: cooperative; Negative for combative or lethargic Orientation / Consciousness: awake Exam Limitations: no limitations HEENT Head and Scalp: normocephalic and atraumatic Eyes EOMs intact bilaterally General Eye: normal appearance of both eyes Neck full ROM and no lymphadenopathy General: trachea midline Resp normal respiratory effort and no use of accessory muscles Effort and Inspection: Negative for labored, stridor or audible wheezes Cardio regular rate and regular rhythm Peripheral Pulses: brachial pulses present and radial pulses present Back/Spine Cervical Spine: cervical ROM normal Extremity full ROM, normal capillary refill and no clubbing, cyanosis or edema Skin no rashes or lesions noted and no wounds Neuro oriented x3, CN's II-XII intact bilaterally, no focal motor deficits and no sensory deficits noted Psych thought process normal, cooperative, affect normal, speech normal and activity/motor behavior normal Results Lab / Micro Data 02/14/25 09:29 02/14/25 09:29 Labs: Laboratory Results - last 24 hr 02/14/25 09:29: WBC 6.0, RBC 3.79 L, Hgb 11.6 L, Hct 35.2 L, MCV 92.9, MCH 30.6,MCHC 33.0, RDW Std Deviation 51.3 H, RDW Coeff of Erma 15.0 H, Plt Count 113 L, MPV 11.1, Sodium 139, Potassium 4.5, Chloride 102, Carbon Dioxide 25.1, Anion Gap 12, BUN 50 H, Creatinine 1.73 H, Estim Creat Clear Calc 29.64 L, Est GFR (MDRD) Non-Af 38 L, BUN/Creatinine Ratio 28.6 H, Glucose 110 H, Calcium 9.5 Assessment & Plan Assessment/Plan (1) Type II endoleak of aortic graft: PLAN: -angio, possible coil MUNDO 02/14/25 1136 Cosign Signature (if applicable): CC: Dr. Dustin Hawk MD; Dr. Dallas Reed MD~ Signed [facility]05-28-2025 [facility] Medical Records Department [address] [place] [id number] History Physical Exam 02/14/25 1133 MR#: [id number] Acct: [id number] Name: LEANA CAMEJO Rep #: [id number] : 1940 85 From: Dustin Hawk MD PCP: Dr. Dallas Reed MD Status:[place] [facility] Location: [facility] HPI - General HPI Narrative LEANA CAMEJO, is a 85 M who presents with prior EVAR with type II endoleak, increasing residual sac. Patent MUNDO with robust communication with SMA; 2 lumbar arteries. 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 Hyperlipidemia Diverticulosis Pre-operative cardiovascular examination Anemia 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, NYHA class 2 RSV (respiratory syncytial virus pneumonia) Shortness of breath Cough productive of purulent sputum Home Medications ???Medication ???Instructions ???Recorded ???Last Taken ???Type losartan 100 mg tablet 100 mg PO DAILY BP 05/17/19 History multivitamin 1 tab PO DAILY supplement 05/18/19 05/21/24 History ascorbic acid (vitamin C) 500 mg 1,000 mg PO DAILY supplement 02/1305/23/24 History capsule carvedilol 12.5 mg tablet 12.5 mg PO BID heart #180 tabs 02/14/25 Rx doxazosin 8 mg tablet 8 mg PO QHS prostate 05/23/2412/20 History hydralazine 100 mg tablet 100 mg PO TID blood pressure 05/2302/14/25 History magnesium oxide 400 mg (241.3 mg 400 mg PO DAILY supplement 4 05/21/24 History magnesium) tablet aspirin 81 mg chewable tablet 81 mg PO BREAKFAST 30 days #30 tab s 05/24/24 01/12/25 Rx bempedoic acid 180 mg tablet 180 mg PO DAILY 07/11/24 01/12/25 History (Nexletol) ezetimibe 10 mg tablet 10 mg PO DAILY 07/11/24 02/14/25 H istory levothyroxine 25 mcg tablet 25 mcg PO DAILY 11/28/24 02/14/25 History amoxicillin 875 mg-potassium 875 mg PO Q12H #20 TABLETS 5 Unknown Rx clavulanate 125 mg tablet cholecalciferol (vitamin D3) 125 125 mcg PO DAILY 01/12/25 Unknown History mcg (5,000 unit) tablet (Vitamin D3) ferrous sulfate 325 mg (65 mg 325 mg PO DAILY 01/12/25 01/12/25 History iron) tablet (Feosol) fluticasone propionate 50 1 spray intranasal QHS PRN nasal 0 01/12/25 Unknown History mcg/actuation nasal congestion spray,suspension nifedipine 60 mg tablet,extended 60 mg PO DAILY 01/12/25 02/14/25 H istory release Allergy/AdvReac Type Severity Reaction Status Date / Time lisinopril Allergy Intermediate Rash Verified 01/12/25 10:29 atorvastatin calcium (From Allergy Other Verified 01/12/25 10:29 Lipitor) clonidine Allergy Unknown Verified 01/12/25 10:29 rosuvastatin calcium (From Allergy Other Verified 01/12/25 10:29 Crestor) Pmfrbvd-SCG-BoK Reductase Allergy Other Verified 01/12/25 10:29 Inhibitor (Rurljvz-Hbn-Okb Reductase Inhibitor) Family History Father Lung cancer Liver cancer Mother Oral cancer Surgical History S/P spigelian hernia repair, follow-up exam S/P AAA repair History of right-sided carotid endarterectomy Hx of cataract surgery Hx of appendectomy History of tonsillectomy History of back surgery History of colonoscopy History of blepharoplasty History of inguinal hernia repair History of umbilical hernia repair 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 Social History household members: spouse Smoking Status: Former smoker second hand exposure: No alcohol intake: never substance use type: does not use caffeine: Yes Type: coffee Number of servings: 2 ROS Constitutional Constitutional: Denies chills, fever(s), frequent falls, lethargy or weakness Eyes Eyes: Denies blind spots, change in vision or loss of vision ENT HEENT: Denies bleeding gums, hoarseness or sore throat Cardiovascular Cardiovascular: Denies abdominal pain, bluish discoloration of hand/feet, chest pain with activity, claudication, cold extremities, cyanosis, dyspnea on exertion, erythema on extremities, irregular heart rhythm, leg edema, leg ulcers, numbness in extremities or weakness i (more content not included)...[facility]05-28-2025 Evaluation note* Diagnosis Onset Date Resolution Status Admit Date 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 onic February 14, 2025 9:24am 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 onic February 27, 2025 2:40pm Abdominal aortic 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 April 18, 2025 4:16pm [facility] Work Phone: 1(410) 800-417405-28-2025 Evaluation note* Diagnosis Onset Date Resolution Status Admit Date 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 February 14, 2025 9 :24am 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 February 27, 2025 2:40pm Abdominal aortic 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 April 18, 2025 4:16pm 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 May 10 8:04am Abdominal aortic 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 May 10 8:04am Essential hypertension chronic 2024 8:04am 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 suspected April 8:04am Hyperlipidemia resolved April 8:04am Shortness of breath resolved 2024 8:04am [facility] Work Phone: 1([phone]) 173-905305-15-2025 [facility] History of Present illness Narrative* Adriane White, RN - 02/01/2025 1:48 PM EDT Images from the original note were not included. [facility] Care Path Telephonic Outreach Provider Action/FYI Patient identified by Name and Date of . Discussed care with patient. Program Details Chronic Disease Management Status: Enrolled Effective Dates: 01/17/2025 - present Responsible Staff: Adriane White, RN Support and Services: Congestive Heart Failure (CHF), Hypertension, Chronic Kidney Disease (CKD) Program Goals Targets Target Due Completed Completed By Outcome General education provided (managing stress, where to go/how to contact, etc.) 02/16/2025 -- -- -- Biannual Cardiology visit addressed 04/18/2025 -- -- -- CKD lab care gaps addressed 04/18/2025 -- -- -- Comprehensive CHF education provided 04/18/2025 -- -- -- Comprehensive CKD education provided 04/18/2025 -- -- -- Comprehensive HTN education provided 04/18/2025 -- -- -- HTN lab care gaps addressed 04/18/2025 -- -- -- Annual Medicare Wellness visit addressed 04/18/2025 02/01/2025 Adriane White RN Complete/Scheduled Annual Nephrology visit addressed 04/18/2025 02/01/2025 Adriane White RN Patient Declined Biannual PCP visit addressed 04/18/2025 02/01/2025 Adriane White RN Complete/Scheduled Intake assessments completed: ADLs, Fall Risk, SDOH 02/16/2025 01/17/2025 Adriane White RN Complete Patient-stated goal addressed (add comment) 04/18/2025 01/17/2025 Adriane White RN Complete Wants to increase leg strength and walking Assessments CDM Assessment Medications: Do you have any questions about taking your medications or which medications you should be taking?:No Do you need any medication refills at this time, including any of the medication you might take only when needed?: No Social: It can be normal to feel anxious or down during a time like this. Would you like to talk to a mental health professional about how you have been feeling?: No Symptoms: Are you experiencing any new or worsening symptoms that you need to talk about today?: No ADLs No documentation this encounter Fall Risk No documentation this encounter SDOH No documentation this encounter Interventions The following were addressed during this visit: - Schedule Biannual Cardiology Appointment - Annual Nephrology visit addressed - Month 3: Schedule Annual Nephrology Appointment - Biannual PCP visit addressed - Annual Medicare Wellness visit addressed - Schedule Biannual PCP Appointment Adrinae White RN February 01, 2025 1:48 PM [facility]30[facility]2025 [facility] History of Present illness Narrative* Adriane White RN - 01/17/2025 2:02 PM EDT CDM ENROLLMENT Provider Action / FYI: Patient identified by name and date of . Discussed care with patient. Program Details Chronic Disease Management Status: Enrolled Effective Dates: 01/17/2025 - present Responsible Staff: Adriane White RN Support and Services: Congestive Heart Failure (CHF), Hypertension, Chronic Kidney Disease (CKD) Assessments CDM Assessment Medications: Do you have any questions about taking your medications or which medications you should be taking?:No Do you need any medication refills at this time, including any of the medication you might take only when needed?: No Social: It can be normal to feel anxious or down during a time like this. Would you like to talk to a mental health professional about how you have been feeling?: No Symptoms: Are you experiencing any new or worsening symptoms that you need to talk about today?: No ADLs Patients can perform the following activities without help: Dressing: Yes Bathing: Yes Doing laundry: Yes Climbing a flight of stairs: Yes Walking briskly: No Instrumental activities of daily living Do you drive a car?: Yes Do you need help from others to take care of things inside the house, for example: laundry, house cleaning, preparing meals?: No Do you need help from others with errands outside the house, for example: shopping for groceries orclothes, going medical appointments?: No Fall Risk One or more falls in the last year:: Yes (slipped on ice) Any near falls in the last year?: No Advised to use a cane or walker to get around safely:: No Feels unsteady when walking:: No Steadies self on furniture while walking at home:: No Worried about falling:: No Needs to push with hands when rising from a chair:: No Has trouble stepping up onto a curb:: No SDOH Financial Resource Strain How hard is it for you to pay for the very basics like food, housing, medical care, and heating?: Not very hard Housing Stability In the last 12 months, was there a time when you were not able to pay the mortgage or rent on time?: No At any time in the past 12 months, were you homeless or living in a longterm (including now)?: No Transportation Needs In the past 12 months, has lack of transportation kept you from medical appointments or from getting medications?: No In the past 12 months, has lack of transportation kept you from meetings, work, or from getting things needed for daily living?: No Food Insecurity Within the past 12 months, you worried that your food would run out before you got the money to buymore.: Never true Within the past 12 months, the food you bought just didn't last and you didn't have money to get more.: Never true Utilities In the past 12 months has the electric, gas, oil, or water company threatened to shut off services in your home?: No Tobacco Use Patient reports that he quit smoking about 60 years ago. His smoking use included cigarettes. He started smoking about 62 years ago. He has a 2 pack-year smoking history. He has never used smokeless tobacco. Interventions The following were addressed during this visit: - Initial enrollment outreach - Intake assessments completed: ADLs, Fall Risk, SDOH - Patient-stated goal addressed (add comment) - Schedule Annual Wellness Visit - Develop a Patient-Stated Goal (add to Target comments) Adriane White RN January 17, 2025 2:17 PM documented in this encounterV[facility]04-25-2025 Discharge summary Author Hernandez King [facility] Note Date/Time January 12, 2025 1:[facility] [address] [place] [address] Emergency Department Summary 01/12/25 MR#: [id number] Acct: [id number] Name: LEANA CAMEJO Rep #:[id number] 14 : 1940 85 From: Hernandez King MD PCP: Dr. Dallas Reed MD Status:R EG ER Location: ED HPI History of Present Illness Chief Complaint: Abd Pain Detail of Chief Complaint: Left lower quadrant abdominal pain since yesterday Informant: patient and spouse/S.O. Onset/Context/Timing Onset: Yesterday Context: Sudden Onset Timing: Continuous Quality: Pain Location: Left lower quadrant Current Severity: Mild Maximum Severity: Moderate Worsened by: Walking and coughing Relieved by: Nothing Associated Symptoms Associated Symptoms: Nausea without vomiting or diarrhea. Endorses constipation Narrative Narrative: Patient is a 85-year-old male. He has history of hernia repair recently by Dr. Bruce, type II endoleak of aortic graft which was evaluated at [facility] November of this year. He is presently under the care of Dustin Hawk regarding the type II endoleak. 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 Patient states he contacted Dr. Hawk who recommended he come to the emergency department. He states he had a terrible night with had difficulty sleeping. He denies fever or chills. He denies cardiac or respiratory symptoms. He denies urologic symptoms. He denies back or flank pain. Prior similar symptoms: Yes (November 28, 2024, Dr. Gray's note was reviewed.) Recent Illness/Hospitalization: Yes (Transfer to [facility] for evaluation of endoleak of aort) [facility] Medical History Spigelian hernia Wears hearing aid Wears glasses History of steroid therapy Arthritis History of renal disease TIA (transient ischemic attack) Ataxia History of echocardiogram Easy bruising History of IBS Former smoker History of stress test Cardiology follow-up encounter History of irregular heartbeat Preop cardiovascular exam Stenosis of right internal carotid artery Abdominal aortic 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 Essential hypertension Lumbar disc disease 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 Hyperlipidemia Diverticulosis Pre-operative cardiovascular examination Anemia 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, NYHA class 2 RSV (respiratory syncytial virus pneumonia) Shortness of breath Cough productive of purulent sputum Home Medications ?Medication ?Instructions ?Recorded ?Last Taken ?Type losartan 100 mg tablet 100 mg PO DAILY BP 05/17/19 01/12/25 History multivitamin 1 tab PO DAILY supplement 05/21/24 History ascorbic acid (vitamin C) 500 mg 1,000 mg PO DAILY sup plement 02/14/20 05/23/24 History capsule carvedilol 12.5 mg tablet 12.5 mg PO BID heart #180 ta bs 11/12/21 01/12/25 Rx doxazosin 8 mg tablet 8 mg PO QHS prostate 4 01/10/25 History hydralazine 100 mg tablet 100 mg PO TID blood pressure 05/23/24 01/12/25 History magnesium oxide 400 mg (241.3 mg 400 mg PO DAILY suppl ement 05/23/24 05/21/24 History magnesium) tablet aspirin 81 mg chewable tablet 81 mg PO BREAKFAST 30 da ys #30 tabs 05/24/24 01/12/25 Rx bempedoic acid 180 mg tablet 180 mg PO DAILY 07/11/24 01/12/25 History (Nexletol) ezetimibe 10 mg tablet 10 mg PO DAILY 07/11/2412/20 History levothyroxine 25 mcg tablet 25 mcg PO DAILY 11/28/24 0 01/12/25 History amoxicillin 875 mg-potassium 875 mg PO Q12H #20 TABLET S 01/12/25 Unknown Rx clavulanate 125 mg tablet cholecalciferol (vitamin D3) 125 125 mcg PO DAILY 12/20 02/11 Unknown History mcg (5,000 unit) tablet (Vitamin D3) ferrous sulfate 325 mg (65 mg 325 mg PO DAILY 01/12/25 01/12/25 History iron) tablet (Feosol) fluticasone propionate 50 1 spray intranasal QHS PRN n mary 01/12/25 Unknown History mcg/actuation nasal congestion spray,suspension nifedipine 60 mg tablet,extended 60 mg PO DAILY 01/12/25 History release Allergy/AdvReac Type Severity Reaction Status Date / Time lisinopril Allergy Intermediate Rash Verified 01/12/25 10:29 atorvastatin calcium (From Allergy Other Verified 01/12/25 10:29 Lipitor) clonidine Allergy Unknown Verified 01/12/25 10:29 rosuvastatin calcium (From Allergy Other Verified 01/12/25 10:29 Crestor) Ozwonty-XMT-YgN Reductase Allergy Other Verified 01/12/25 10:29 Inhibitor (Nxashke-Fbl-Bib Reductase Inhibitor) Family History Father Lung cancer Liver cancer Mother Oral cancer Surgical History S/P spigelian hernia repair, follow-up exam S/P AAA repair History of right-sided carotid endarterectomy Hx of cataract surgery Hx of appendectomy History of tonsillectomy History of back surgery History of colonoscopy History of blepharoplasty History of inguinal hernia repair History of umbilical hernia repair 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 Social History household members: spouse Smoking Status: Former smoker second hand exposure: No alcohol intake: never substance use type: does not use caffeine: Yes Type: coffee Number of servings: 2 ROS ROS ED Constitutional Constitutional ED: Denies chills, fever(s), subjective, sweats or weight loss Eyes Eyes: Denies blurry vision or change in vision Cardiovascular Cardiovascular: Denies chest pain, orthopnea, palpitations or paroxysmal nocturnal dyspnea Respiratory/Chest Respiratory/Chest: Denies cough, dyspnea, dyspnea on exertion, orthopnea, paroxysmal nocturnal dyspnea or sputum Gastrointestinal Gastrointestinal: Reports abdominal pain and constipation; Denies diarrhea, melena or vomiting Genitourinary Genitourinary ED: Denies dysuria, hematuria or urinary frequency Musculoskeletal Musculoskeletal: Denies arthralgias, back pain, myalgias or neck pain Endocrine Endocrinology: Denies cold intolerance or heat intolerance Hematologic/Lymphatic Hematologic/Lymphatic: Reports systems reviewed and no addt'l complaints, exceptas documented EXAM Physical Exam Const Vital Signs: 01/12/25 10:30 01/12/25 12:29 Temperature 97.9 F Temperature Source Oral Pulse Rate 68 50 L Respiratory Rate 18 14 Blood Pressure 135/52 H 155/79 H Blood Pressure Mean 79 104 Pulse Ox 99 100 Oxygen Delivery Method Room Air Room Air Positive well nourished and well developed Constitutional Narrative: As I entered the room patient has his hand over the left lower quadrant. He appears in no obvious distress. Vital signs remarkable slight elevation of blood pressure. He states he had swelling of his foot and has reverted back to his prior antihypertensive meds. They were changed when he was at the [facility]. He and his both [place]. General Appearance ED: well developed; Negative for pallor HEENT Reports moist mucous membranes HEENT Narrative: Head is atraumatic normocephalic. Ears normal. Nares Eyes PERRL and EOMs intact bilaterally General Eye ED: Negative for pale conjunctiva or scleral icterus Resp normal respiratory effort and clear to auscultation bilaterally Cardio regular rate, regular rhythm, S1 normal heart sound, S2 normal heart sound and no murmurs GI normal to inspection, nondistended, normoactive bowel sounds, non-distended and no masses; Negative for non-tender or hepatosplenomegaly GI Narrative: There are multiple well-healed scars noted. Auscultation: hypoactive bowel sounds Palpation: soft, tender LLQ and guarding LLQ; Negative for rebound tenderness present Narrative: There is no inguinal lymphadenopathy. Back/Spine no CVA tenderness Extremity normal to inspection Neuro oriented x3 and CN's II-XII intact bilaterally Sensorium / Orientation: alert Psych mental status grossly normal Skin no rashes or lesions noted, no wounds and skin turgor normal General Skin Exam: elasticity normal; Negative for jaundice or pallor MDM MDM MDM Narrative Medical decision making narrative: Differential diagnosis would include diverticulitis, concern for progression of his type II endoleak of aortic graft. Since he was sent to the ER by Dr. Hawk's office staff will contact if there is any concern regarding the aortic graft. CBC, electrolyte panel were obtained. Since he has no urologic symptomsUA was not obtained. CT of the abdomen and pelvis with IV contrast was obtainedto assess his aorta as well as left lower quadrant since he has well-documented history of diverticulosis. The fact that it is worse with walking, breathing deeply or coughing raises concern this is most likely related to the diverticulosis. History & Record Review Additional record(s) reviewed:: Prior outpatient record, Prior ED visit (Documented HPI narrative) and Prior labs Lab Data Attestation: I reviewed the patient's lab results. Lab results narrative: CBC is remarkable for mild anemia with normal indices. This is essentially unchanged from prior results. Electrolyte panel reveals elevated BUN and creatinine. Creatinine about patient's baseline. Labs: Laboratory Results - last 24 hr 01/12/25 10:47 WBC 5.2 RBC 3.88 L Hgb 11.5 L Hct 35.6 L MCV 91.8 MCH 29.6 MCHC 32.3 RDW Std Deviation 49.7 H RDW Coeff of Erma 14.8 H Plt Count 104 L MPV 10.8 Immature Gran % (Auto) 0.400 Neut % (Auto) 63.2 Lymph % (Auto) 22.3 Billings % (Auto) 9.8 Eos % (Auto) 3.5 Baso % (Auto) 0.8 Absolute Neuts (auto) 3.3 Absolute Lymphs (auto) 1.16 Nucleated RBC % 0 Sodium 138 Potassium 3.9 Chloride 102 Carbon Dioxide 24.7 Anion Gap 11 BUN 38 H Creatinine 1.54 H Estim Creat Clear Calc 33.25 L Est GFR (MDRD) Non-Af 44 L BUN/Creatinine Ratio 24.7 H Glucose 93 Calcium 8.8 Radiography Diagnostic Testing: Clinical Impression(s) from Imaging Studies Abdomen/Pelvis CT 01/12/25 10:39 IMPRESSION: Aneurysmal dilatation of the abdominal aorta within the evidence of endoluminal leak. This is unchanged. Sigmoid diverticula. Mild degree of increased inflammatory changes in the sigmoid mesentery suggestive of early sigmoid diverticulitis. The remainder of the examination is unchanged. Reading Location: [facility] Since the endoleak is unchanged and there is evidence of early diverticulitis wewill treat with Augmentin. Since patient is afebrile, has a normal white count and has no peritoneal findings he is a candidate for outpatient therapy. He will receive a prescription for Augmentin since he does not have an allergy to penicillin. Discharge Plan Triage Chief Complaint: Abd Pain ED Provider: Hernandez King Dx/Rx/DC Orders Clinical Impression: Sigmoid diverticulitis, Type II endoleak of aortic graft, Anemia, Elevated blood pressure reading with diagnosis of hypertension Instructions: ED Diverticulitis Prescriptions: New amoxicillin-pot clavulanate 875-125 mg tablet 875 mg PO Q12H Qty: 20 0RF No Action multivitamin Tablet 1 tab PO DAILY losartan 100 mg tablet 100 mg PO DAILY ascorbic acid (vitamin C) 500 mg capsule 1,000 mg PO DAILY carvedilol 12.5 mg tablet 12.5 mg PO BID Qty: 180 0RF magnesium oxide 400 mg (241.3 mg magnesium) tablet 400 mg PO DAILY doxazosin 8 mg tablet 8 mg PO QHS hydralazine 100 mg tablet 100 mg PO TID aspirin 81 mg Tablet,Chewable 81 mg PO BREAKFAST 30 Days Qty: 30 3RF Rx Instructions: Discontinue if platelet count drops less than 50,000 or hemoglobin less than 8 g% nifedipine 60 mg tablet extended release 60 mg PO DAILY ferrous sulfate [Feosol] 325 mg (65 mg iron) tablet 325 mg PO DAILY fluticasone propionate 50 mcg/actuation spray,suspension 1 spray INTRANASAL QHS PRN (Reason: nasal congestion) cholecalciferol (vitamin D3) [Vitamin D3] 125 mcg (5,000 unit) tablet 125 mcg PO DAILY ezetimibe 10 mg tablet 10 mg PO DAILY Nexletol 180 mg tablet 180 mg PO DAILY levothyroxine 25 mcg tablet 25 mcg PO DAILY Primary Care Provider: Dallas Reed Referrals: Dallas Reed MD [Primary Care Provider] - 3-5 Days if not improving Activity Restrictions/Additional Instructions: 1. Take antibiotics until gone. 2 if you develop a fever, your pain becomes worse and spite of the antibiotics or unable to eat or drink anything return to the emergency Print Language: Ethiopian Disposition Disposition: Home, Self Care What to do if you have Problems For any increased pain, shortness of breath, bleeding, nausea or vomiting, chestpain, or any unexpected problems, contact your Primary Care Provider. Call [facility] ([phone]) or report to the closest Emergency Room. Call 911 if necessary. 01/12/25 1321 <Electronically signed by Hernandez King MD> Cosigner Signature (if applicable): CC: Dr. Dallas Reed MD ~ Signed [facility] Work Phone: 1(439) 301-853204-25-2025 Discharge summary [facility] Medical Records Department [address] [place] [id number] Emergency Department Summary 01/12/25 MR#: [id number] Acct: [id number] Name: LEANA CAMEJO Rep #:[id number] : 1940 85 From: Hernandez King MD PCP: Dr. Dallas Reed MD Status:R EG ER Location: ED HPI History of Present Illness Chief Complaint: Abd Pain Detail of Chief Complaint: Left lower quadrant abdominal pain since yesterday Informant: patient and spouse/S.O. Onset/Context/Timing Onset: Yesterday Context: Sudden Onset Timing: Continuous Quality: Pain Location: Left lower quadrant Current Severity: Mild Maximum Severity: Moderate Worsened by: Walking and coughing Relieved by: Nothing Associated Symptoms Associated Symptoms: Nausea without vomiting or diarrhea. Endorses constipation Narrative Narrative: Patient is a 85-year-old male. He has history of hernia repair recently by Dr. Bruce, type II endoleak of aortic graft which was evaluated at [facility] November of this year. He is presently under the care of Dustin Hawk regarding the type II endoleak. 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 Patient states he contacted Dr. Hawk who recommended he come to the emergency department. He states he had a terrible night with had difficulty sleeping. He denies fever or chills. He denies cardiac or respiratory symptoms. He denies urologic symptoms. He denies back or flank pain. Prior similar symptoms: Yes (November 28, 2024, Dr. Gray's note was reviewed.) Recent Illness/Hospitalization: Yes (Transfer to [facility] for evaluation of endoleak of aort) [facility] Medical History Spigelian hernia Wears hearing aid Wears glasses History of steroid therapy Arthritis History of renal disease TIA (transient ischemic attack) Ataxia History of echocardiogram Easy bruising History of IBS Former smoker History of stress test Cardiology follow-up encounter History of irregular heartbeat Preop cardiovascular exam Stenosis of right internal carotid artery Abdominal aortic 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 Essential hypertension Lumbar disc disease 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 Hyperlipidemia Diverticulosis Pre-operative cardiovascular examination Anemia 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, NYHA class 2 RSV (respiratory syncytial virus pneumonia) Shortness of breath Cough productive of purulent sputum Home Medications ?Medication ?Instructions ?Recorded ?Last Taken ?Type losartan 100 mg tablet 100 mg PO DAILY BP 05/17/19 01/12/25 History multivitamin 1 tab PO DAILY supplement 05/21/24 History ascorbic acid (vitamin C) 500 mg 1,000 mg PO DAILY sup plement 02/14/20 05/23/24 History capsule carvedilol 12.5 mg tablet 12.5 mg PO BID heart #180 ta bs 11/12/21 01/12/25 Rx doxazosin 8 mg tablet 8 mg PO QHS prostate 4 01/10/25 History hydralazine 100 mg tablet 100 mg PO TID blood pressure 05/23/24 01/12/25 History magnesium oxide 400 mg (241.3 mg 400 mg PO DAILY suppl ement 05/23/24 05/21/24 History magnesium) tablet aspirin 81 mg chewable tablet 81 mg PO BREAKFAST 30 da ys #30 tabs 05/24/24 01/12/25 Rx bempedoic acid 180 mg tablet 180 mg PO DAILY 07/11/24 01/12/25 History (Nexletol) ezetimibe 10 mg tablet 10 mg PO DAILY 07/11/2412/20 History levothyroxine 25 mcg tablet 25 mcg PO DAILY 11/28/24 0 01/12/25 History amoxicillin 875 mg-potassium 875 mg PO Q12H #20 TABLET S 01/12/25 Unknown Rx clavulanate 125 mg tablet cholecalciferol (vitamin D3) 125 125 mcg PO DAILY 12/20 02/11 Unknown History mcg (5,000 unit) tablet (Vitamin D3) ferrous sulfate 325 mg (65 mg 325 mg PO DAILY 01/12/25 01/12/25 History iron) tablet (Feosol) fluticasone propionate 50 1 spray intranasal QHS PRN n mary 01/12/25 Unknown History mcg/actuation nasal congestion spray,suspension nifedipine 60 mg tablet,extended 60 mg PO DAILY 01/12/25 History release Allergy/AdvReac Type Severity Reaction Status Date / Time lisinopril Allergy Intermediate Rash Verified 01/12/25 10:29 atorvastatin calcium (From Allergy Other Verified 01/12/25 10:29 Lipitor) clonidine Allergy Unknown Verified 01/12/25 10:29 rosuvastatin calcium (From Allergy Other Verified 01/12/25 10:29 Crestor) Yhwddoc-PZM-RzN Reductase Allergy Other Verified 01/12/25 10:29 Inhibitor (Zsnoymz-Zsb-Jcy Reductase Inhibitor) Family History Father Lung cancer Liver cancer Mother Oral cancer Surgical History S/P spigelian hernia repair, follow-up exam S/P AAA repair History of right-sided carotid endarterectomy Hx of cataract surgery Hx of appendectomy History of tonsillectomy History of back surgery History of colonoscopy History of blepharoplasty History of inguinal hernia repair History of umbilical hernia repair 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 Social History household members: spouse Smoking Status: Former smoker second hand exposure: No alcohol intake: never substance use type: does not use caffeine: Yes Type: coffee Number of servings: 2 ROS ROS ED Constitutional Constitutional ED: Denies chills, fever(s), subjective, sweats or weight loss Eyes Eyes: Denies blurry vision or change in vision Cardiovascular Cardiovascular: Denies chest pain, orthopnea, palpitations or paroxysmal nocturnal dyspnea Respiratory/Chest Respiratory/Chest: Denies cough, dyspnea, dyspnea on exertion, orthopnea, paroxysmal nocturnal dyspnea or sputum Gastrointestinal Gastrointestinal: Reports abdominal pain and constipation; Denies diarrhea, melena or vomiting Genitourinary Genitourinary ED: Denies dysuria, hematuria or urinary frequency Musculoskeletal Musculoskeletal: Denies arthralgias, back pain, myalgias or neck pain Endocrine Endocrinology: Denies cold intolerance or heat intolerance Hematologic/Lymphatic Hematologic/Lymphatic: Reports systems reviewed and no addt'l complaints, exceptas documented EXAM Physical Exam Const Vital Signs: 01/12/25 10:30 01/12/25 12:29 Temperature 97.9 F Temperature Source Oral Pulse Rate 68 50 L Respiratory Rate 18 14 Blood Pressure 135/52 H 155/79 H Blood Pressure Mean 79 104 Pulse Ox 99 100 Oxygen Delivery Method Room Air Room Air Positive well nourished and well developed Constitutional Narrative: As I entered the room patient has his hand over the left lower quadrant. He appears in no obvious distress. Vital signs remarkable slight elevation of blood pressure. He states he had swelling of hisfoot and has reverted back to his prior antihypertensive meds. They were changed when he was at the [facility]. He and his both [place]. General Appearance ED: well developed; Negative for pallor HEENT Reports moist mucous membranes HEENT Narrative: Head is atraumatic normocephalic. Ears normal. Nares Eyes PERRL and EOMs intact bilaterally General Eye ED: Negative for pale conjunctiva or scleral icterus Resp normal respiratory effort and clear to auscultation bilaterally Cardio regular rate, regular rhythm, S1 normal heart sound, S2 normal heart sound and no murmurs GI normal to inspection, nondistended, normoactive bowel sounds, non-distended and no masses; Negativefor non-tender or hepatosplenomegaly GI Narrative: There are multiple well-healed scars noted. Auscultation: hypoactive bowel sounds Palpation: soft, tender LLQ and guarding LLQ; Negative for rebound tenderness present Narrative: There is no inguinal lymphadenopathy. Back/Spine no CVA tenderness Extremity normal to inspection Neuro oriented x3 and CN's II-XII intact bilaterally Sensorium / Orientation: alert Psych mental status grossly normal Skin no rashes or lesions noted, no wounds and skin turgor normal General Skin Exam: elasticity normal; Negative for jaundice or pallor MDM MDM MDM Narrative Medical decision making narrative: Differential diagnosis would include diverticulitis, concern for progression of his type II endoleak of aortic graft. Since he was sent to the ER by Dr. Hawk's office staff will contact if there isany concern regarding the aortic graft. CBC, electrolyte panel were obtained. Since he has no urologic symptomsUA was not obtained. CT of the abdomen and pelvis with IV contrast was obtainedto assesshis aorta as well as left lower quadrant since he has well-documented history of diverticulosis. The fact that it is worse with walking, breathing deeply or coughing raises concern this is most likely related to the diverticulosis. History & Record Review Additional record(s) reviewed:: Prior outpatient record, Prior ED visit (Documented HPI narrative) and Prior labs Lab Data Attestation: I reviewed the patient's lab results. Lab results narrative: CBC is remarkable for mild anemia with normal indices. This is essentially unchanged from prior results. Electrolyte panel reveals elevated BUN and creatinine. Creatinine about patient's baseline. Labs: Laboratory Results - last 24 hr 01/12/25 10:47 WBC 5.2 RBC 3.88 L Hgb 11.5 L Hct 35.6 L MCV 91.8 MCH 29.6 MCHC 32.3 RDW Std Deviation 49.7 H RDW Coeff of Erma 14.8 H Plt Count 104 L MPV 10.8 Immature Gran % (Auto) 0.400 Neut % (Auto) 63.2 Lymph % (Auto) 22.3 [place] % (Auto) 9.8 Eos % (Auto) 3.5 Baso % (Auto) 0.8 Absolute Neuts (auto) 3.3 Absolute Lymphs (auto) 1.16 Nucleated RBC % 0 Sodium 138 Potassium 3.9 Chloride 102 Carbon Dioxide 24.7 Anion Gap 11 BUN 38 H Creatinine 1.54 H Estim Creat Clear Calc 33.25 L Est GFR (MDRD) Non-Af 44 L BUN/Creatinine Ratio 24.7 H Glucose 93 Calcium 8.8 Radiography Diagnostic Testing: Clinical Impression(s) from Imaging Studies Abdomen/Pelvis CT 01/12/25 10:39 IMPRESSION: Aneurysmal dilatation of the abdominal aorta within the evidence of endoluminal leak. This is unchanged. Sigmoid diverticula. Mild degree of increased inflammatory changes in the sigmoid mesentery suggestive of early sigmoid diverticulitis. The remainder of the examination is unchanged. Reading Location: [facility] Since the endoleak is unchanged and there is evidence of early diverticulitis wewill treat with Augmentin. Since patient is afebrile, has a normal white count and has no peritoneal findings he is a candidate for outpatient therapy. He will receive a prescription for Augmentin since he does not havean allergy to penicillin. Discharge Plan Triage Chief Complaint: Abd Pain ED Provider: Hernandez King Dx/Rx/DC Orders Clinical Impression: Sigmoid diverticulitis, Type II endoleak of aortic graft, Anemia, Elevated blood pressure reading with diagnosis of hypertension Instructions: ED Diverticulitis Prescriptions: New amoxicillin-pot clavulanate 875-125 mg tablet 875 mg PO Q12H Qty: 20 0RF No Action multivitamin Tablet 1 tab PO DAILY losartan 100 mg tablet 100 mg PO DAILY ascorbic acid (vitamin C) 500 mg capsule 1,000 mg PO DAILY carvedilol 12.5 mg tablet 12.5 mg PO BID Qty: 180 0RF magnesium oxide 400 mg (241.3 mg magnesium) tablet 400 mg PO DAILY doxazosin 8 mg tablet 8 mg PO QHS hydralazine 100 mg tablet 100 mg PO TID aspirin 81 mg Tablet,Chewable 81 mg PO BREAKFAST 30 Days Qty: 30 3RF Rx Instructions: Discontinue if platelet count drops less than 50,000 or hemoglobin less than 8 g% nifedipine 60 mg tablet extended release 60 mg PO DAILY ferrous sulfate [Feosol] 325 mg (65 mg iron) tablet 325 mg PO DAILY fluticasone propionate 50 mcg/actuation spray,suspension 1 spray INTRANASAL QHS PRN (Reason: nasal congestion) cholecalciferol (vitamin D3) [Vitamin D3] 125 mcg (5,000 unit) tablet 125 mcg PO DAILY ezetimibe 10 mg tablet 10 mg PO DAILY Nexletol 180 mg tablet 180 mg PO DAILY levothyroxine 25 mcg tablet 25 mcg PO DAILY Primary Care Provider: Dallas Reed Referrals: Dallas Reed MD [Primary Care Provider] - 3-5 Days if not improving Activity Restrictions/Additional Instructions: 1. Take antibiotics until gone. 2 if you develop a fever, your pain becomes worse and spite of the antibiotics or unable to eat or drink anything return to the emergency Print Language: Ethiopian Disposition Disposition: Home, Self Care What to do if you have Problems For any increased pain, shortness of breath, bleeding, nausea or vomiting, chestpain, or any unexpected problems, contact your Primary Care Provider. Call [facility] ([phone]) or report tothe closest Emergency Room. Call 911 if necessary. 01/12/25 1321 Cosigner Signature (if applicable): CC: Dr. Dallas Reed MD ~ Signed [facility]04-25-2025 Radiology Diagnostic study note [facility] Imaging Services [address] [place] [id number] Abdomen/Pelvis W IV Cont ONLY MR#: [id number] Acct: [id number] Name: LEANA CAMEJO Rep #: [id number] : 1940 M 85 From: Gordo Alcaraz MD PCP: Dr. Dallas Reed MD Status: R EG ER Study:Abdomen/Pelvis W IV Cont ONLY Date of E xam: 01/12/25 Exam# [id number] Ordering Dr: Rhett King MD PROCEDURE: ABDOMEN/PELVIS W IV CONT ONLY 01/12/2025 REASON FOR EXAM: LEFT LOWER QUADRANT ABDOMINAL PAIN WITH GUARDING TECHNIQUE: Abdomen and pelvis CT with intravenous contrast. Coronal and Sagittal reconstruction series were provided. PATIENT PREPARATION: Per protocol ORAL CONTRAST TYPE: None. CONTRAST: Isovue-300 VOLUME: 100 mL One or more dose reduction techniques were used (e.g., Automated exposure control, adjustment of the mA and/or kV according to patient size, use of iterative reconstruction technique. RADIATION DOSE SUMMARY: CTDlvol: 11.5 mGy DLP: 503.73 mGycm COMPARISON: Comparison is made with prior study dated November 28, 2024. FINDINGS: Lung bases: Stable mild increased markings at the lung bases suggestive of scarring. Calcific granuloma in the peripheral aspect of the right lower lobe. Coronary artery calcification. Liver: Diffuse fatty infiltration. Gallbladder: Unremarkable. Spleen: Pbkhpurq-[id number]-[id number] degree of splenomegaly. This is unchanged. Pancreas: Diffuse fatty atrophy. Adrenals: Unremarkable. Kidneys: Mild degree of bilateral renal atrophy. Bladder: Distended urinary bladder. Stable 4.3 cm bladder diverticulum in the posterior right side of the bladder. There is evidence of prior TURP. Bowel: Sigmoid diverticulosis. Mild degree of increased markings in the surrounding peritoneal fat.Non complicated diverticulitis should be ruled out. Appendix: The appendix is not identified. There is no inflammatory process identified in the right lower quadrant to suggest appendicitis. Lymph nodes: No evidence of retroperitoneal lymph nodes. Vasculature: Infrarenal abdominal aortic aneurysm with endoluminal stent graft. The transverse dimension of the aortic aneurysm measures 6.1 cm. Mural thrombus is seen. Endoluminal stent is seen. Stable endoluminal leak type 2.No evidence of retroperitoneal hematoma. This is unchanged as compared to prior study. Peritoneum / Retroperitoneum: Unremarkable Bones: Degenerative changes of the spine. Status post right total hip replacement. CT/Abdomen/Pelvis W IV Cont ONLY IMPRESSION: Aneurysmal dilatation of the abdominal aorta within the evidence of endoluminal leak. This is unchanged. Sigmoid diverticula. Mild degree of increased inflammatory changes in the sigmoid mesentery suggestive of early sigmoid diverticulitis. The remainder of the examination is unchanged. Reading Location: [facility] CC: Dr. Hernandez King MD; Dr. Dallas Reed MD ~ Disc Recordist: Signed [facility]04-08[facility] History of Present illness Narrative* Adriane White RN - 12/26/2024 11:21 AM EDT Transitional Care Management (TCM) Follow-Up Note PCP Update / Actionable Items N/A - No specialty updates needed Patient Source: In-Network Discharge Follow-up outreach: TCM enrolled patient Outreach Summary: Patient reports some mild sob and palpitations last night, he does have a call out to his provider from [place] and will discuss with him, as well as schedule his next CT scan. Cathleen any other concerns today. Contact: Contact made with patient: Yes Spoke to: Patient Validation: Validated the person spoken to is actively involved in the patient's care. The patient was identified by Name and Date of . I'd like to get an update on how you're doing since our last phone call. Is now a good time to talk? Yes Symptoms: Are you feeling about the same, better or worse since leaving the hospital? Same Weekly Outreach: 3rd Outreach (Reminder to complete appropriate education topics with the patient.) Medications: Do you have any questions about taking your medications, including which medications you should be on, or do you need refills on your medications? No Patient Questions / Concerns: Do you have any questions related to your discharge? No Appointment / TCM Follow-Up: Have you had a follow-up visit with your Primary Care Provider or Specialist since you were discharged? Yes Do you need any assistance with scheduling or changing your follow-up appointments? 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 Work Phone: [phone] [facility] History of Present illness Narrative* Ramon Lee, PT - 12/22/2024 9:20 AM EDT Images from the original note were not included. Episode Visit Count: 8 Therapist That Will Accept/Oversee The Plan Of Care: Ramon Lee PT. Start of Care Date: 11/21/24 Onset Date: 11/04/24 Plan of Care Certification Date: 11/21/24 Next Certification Due Date: 12/29/24 Patient Identified by Name and Date of : Yes REHABILITATION AND SPORTS THERAPY PHYSICAL THERAPY DISCONTINUANCE OF CARE PLAN OF CARE UPDATE: Assessment: Leana Camejo is discontinued from Physical Therapy services due to goal achievement..Patient was seen for 8 visits from Start of Care Date: 11/21/24 to 12/22/2024 and treatment included:Therapeutic exercise and Neuromuscular re-education. Leana Camejo demonstrates slight improvement in functional performance scores of 5xSTS, 30-sec chair stand, TUG, DGI, step navigation and B lower extremity strength. Has had no new falls. The patient has progressed toward goals (possible slight slow progression due to mid-november 3-day hospitalization and patient having to have to ramp back up from there). However, Krystle feels confident in his current status and wishes to complete HEP indep. Updated: 12/22/24. Goals for Episode of Care: established 11/21/24 Patient will report no falls. (Goal Met) [place] in home exercise program. (Goal Met) Patient will Improve Timed Up and Go to <9 seconds to demonstrate decreased risk of falling. (NOT MET) Patient will improve 5 time sit to stand to demonstrate improvement in functional lower extremity strength. (Goal Met) Patient will increase balance to >5seconds for tandem stance. (Goal Met) Patient to demonstrate appropriate balance strategies to reduce risk for falls. (Goal Met) Improve B Hip Flexion & ABD strength to 5/5 MMT (Partially Met) Improve performance on 30-sec chair stand test to >11 reps to demo decreased risk for falls. (Goal Met) Patient Goals: Improve function. (Goal Met) SUBJECTIVE: No new falls. Since beginning PT he notices more stamina and leg strength. Pain: Pain Pain Level: 0 Post Treatment Pain Post Treatment Pain Level: No Change PROMIS Scales 12/21/2024 12/14/2024 12/06/2024 Higher is Better Self-Eff Symptom - T Score 44 (Average) Self-Eff Symptom - Percentile 27 Mobility - T Score 44 (mild dysfunction) 38 (moderate dysfunction) 49 (within normal limits) Mobility - Percentile 27 12 46 Proxy-reported T-scores: mean of general population = 50. 5 points is clinically meaningfully difference Percentiles provide an indication of how the patient's score ranks in relation to the general population. Higher percentile rankings indicate better function/quality of life. 50th percentile is the average of the general population and indicates half of respondents had a worse score. OBJECTIVE MEASURES WITH LEVEL OF FUNCTION: LE Strength R LE Strength: Grossly 5/5. SLR x15. L LE Strength: Grossly 5/5. SLR x15. R Hip ABduction: 4/5 L Hip ABduction: 4/5 Gait Gait Observation: Relatively normal Stairs: Reciprocal with use of 1 UE on rails. Doesn't wish to complete navigation without use of hand. Functional Performance Test Results Assistive Device: None 30 Second Chair Stand Test: 11 reps 5 Times Sit to Stand Test : 14.85 sec Timed Up and Go (sec): 10.96 sec 4 Stage Balance Test Narrow base of support (sec): 10 sec Semi-tandem base of support (sec): 10 sec Tandem base of support (sec): 5 sec (Bilateral) Single leg stance - right (sec): 1 sec Single leg stance - left (sec): 1 sec Dynamic Gait Index Gait level surface : 3 - Normal- walks 20' no assist device, good speed, no imbalance, normal gait pattern Change in gait speed: 3 - Normal- able to smoothly change walking speed without loss of balance or gait deivations. Shows significant difference in walking speeds Gait and horizontal head turns: 3 - Normal- performs R/L head turns smoothly with no change in gait Gait and vertical head turns: 3 - Normal- performs up/down head turns smoothly with no change in gait Gait and pivot: 3 - Normal- pivot turn safely within 3 sec, stops quickly, no loss of balance Step over obstacle: 2 - Mild impairment- is able to step over box, but must slow down and adjust steps to clear box Step around obstacle: 3 - Normal- able to walk around cones safely without changing gait speed, no evidence of imbalance Steps: 3 - Normal- alternating feet, no rail Dynamic Gait Index Total: 23 TREATMENT: Therapeutic Exercise: 1: Re-assessment, discussion on patients progress and goals assessed. 2: Discussed active lifestyle and being active with walking program, resistance training and completion of silver sneakers with . 3: HEP was reviewed and the patient was instructed to continue with HEP to tolerance. Skilled Intervention: Patient was educated in proper exercise technique and purpose for exercises. Skilled judgment was used in selection of appropriate interventions. Correct performance of therapeutic exercises was facilitated with verbal cuing. Billing Therapeutic Exercise Treatment Minutes: 30 Skilled Treatment Time Minutes (timed and untimed codes): 30 Total Session Time (minutes): 30 Session Start Time : 914 Session Stop Time : 944 Ramon Lee PT documented in this encounterV[facility]04-01-2025 [facility] [place]-2025 History of Present illness Narrative* Adriane White RN - 12/19/2024 10:25 AM EDT Transitional Care Management (TCM) Follow-Up Note PCP Update / Actionable Items N/A - No specialty updates needed Patient Source: In-Network Discharge Follow-up outreach: TCM enrolled patient Outreach Summary: Patient reports to be doing ok cathleen any new concerns today. Contact: Contact made with patient: Yes Spoke to: Patient Validation: Validated the person spoken to is actively involved in the patient's care. The patient was identified by Name and Date of . I'd like to get an update on how you're doing since our last phone call. Is now a good time to talk? Yes Symptoms: Are you feeling about the same, better or worse since leaving the hospital? Better Weekly Outreach: 2nd Outreach Medications: Do you have any questions about taking your medications, including which medications you should be on, or do you need refills on your medications? No Patient Questions / Concerns: Do you have any questions related to your discharge? No Appointment / TCM Follow-Up: Have you had a follow-up visit with your Primary Care Provider or Specialist since you were discharged? Yes Do you need any assistance with scheduling or changing your follow-up appointments? Patient alreadyhas an appointment scheduled SDOH: Has Food and Housing been addressed in [employer] in the past 3 months? Yes EDUCATION--: N/A Adriane White RN December 19, 2024 10:29 AM documented in this encounterVeter[facility]04-01-2025 [facility] [place]04-[facility]-2025 History of Present illness Narrative* Ramon Lee, PT - 12/19/2024 9:22 AM EDT Episode Visit Count: 7 Therapist That Will Accept/Oversee The Plan Of Care: Ramon Lee PT. Start of Care Date: 11/21/24 Onset Date: 11/04/24 Plan of Care Certification Date: 11/21/24 Next Certification Due Date: 12/29/24 Patient Identified by Name and Date of : Yes REHABILITATION AND SPORTS THERAPY PHYSICAL THERAPY TREATMENT NOTE ASSESSMENT: Leana Camejo tolerated the session with expected muscle soreness. He demonstrated Increased difficulty with right lower extremity stepups compared to left on airex.. The patient will continue to benefit from ongoing skilled physical therapy to progress toward set goals. PLAN FOR NEXT VISIT: VT. SUBJECTIVE: No new falls. Left side anterior region has been bothering him the last couple of days,unable to sleep long, wakes him up. Pain: Pain Pain Level: 5 Pain Location: (Anterior LLQ.) Post Treatment Pain Post Treatment Pain Level: No Change OBJECTIVE MEASURES WITH LEVEL OF FUNCTION: Vitals BP: 138/65 (Before Sci-fit) Pulse: 67 (Before Sci-Fit.) Intra Heart Rate 1: 55 (Following Sci-Fit) Intra BP 1: 127/70 (Following Sci-Fit) TREATMENT: Therapeutic Exercise: 1: Sci-Fit for Warmup: 6 Min, Level 3.0. Direct 1:1 & subjective. Used for CV endurance. 2: B LAQ: 3x15, 5# cuff. 3: B ABD: 3x15, 5#cuff. Skilled Intervention: Patient was educated in proper exercise technique and purpose for exercises. Skilled judgment was used in selection of appropriate interventions. Correct performance of therapeutic exercises was facilitated with verbal cuing. Neuromuscular Re-Education: 1: Tandem Walking Forward: 10 Reps of 40 Feet. 2: Retro Walkin Reps of 40 Feet. 3: Airex FWD [place]: 2x10 each foot, 4: Lateral Airex [place]: 2x10 each way[address] Skilled Intervention: Skilled judgment used to assess appropriate program for balance and coordination activity. Ensured patient safety with use of gait belt and SBA Billing Therapeutic Exercise Treatment Minutes: 23 Neuromuscular Re-Education Treatment Minutes: 17 Skilled Treatment Time Minutes (timed and untimed codes): 40 Total Session Time (minutes): 40 Session Start Time : 917 Session Stop Time : 957 Ramon Lee PT documented in this encounterVeterans Health Administration03-28-2025 NoteSelect [facility] [place]03-28-2025 History of Present illness Narrative* Ramon Lee PT - 12/15/2024 9:22 AM EDT Episode Visit Count: 6 Therapist That Will Accept/Oversee The Plan Of Care: Ramon Lee PT. Start of Care Date: 11/21/24 Onset Date: 11/04/24 Plan of Care Certification Date: 11/21/24 Next Certification Due Date: 12/29/24 Patient Identified by Name and Date of : Yes REHABILITATION AND SPORTS THERAPY PHYSICAL THERAPY TREATMENT NOTE ASSESSMENT: Leana Camejo tolerated the session with expected muscle soreness. He demonstrated less fatigue compared to last session. The patient will continue to benefit from ongoing skilled physical therapy to progress toward set goals. PLAN FOR NEXT VISIT: Balance Exercises.Functional Strength. SUBJECTIVE: No new falls. States muscles have been sore from after sessions. States it doesn't feellike too much. States HS are tight. Pain: Pain Pain Level: 0 OBJECTIVE MEASURES WITH LEVEL OF FUNCTION: Vitals BP: 124/67 (Before Sci-Fit) Pulse: 71 (Before Sci-Fit) Intra Heart Rate 1: 80 Intra BP 1: 123/72 (Following Sci-Fit) Intra BP Position 1: Sitting TREATMENT: Therapeutic Exercise: 1: Sci-Fit for Warmup: 6 Min, Level 3.0. Direct 1:1 & subjective. Used for CV endurance. 2: B LAQ: 3x10, 4# cuff. 3: HS Stretch on 4-inch step: 3x30. each 4: Calf Prostretch: 3x30 each. 5: Retro Hoist Walks: 2x10, 1 plate. Skilled Intervention: Patient was educated in proper exercise technique and purpose for exercises. Skilled judgment was used in selection of appropriate interventions. Correct performance of therapeutic exercises was facilitated with verbal and tactile cuing. Billing Therapeutic Exercise Treatment Minutes: 41 Skilled Treatment Time Minutes (timed and untimed codes): 41 Total Session Time (minutes): 41 Session Start Time : 913 Session Stop Time : 954 Ramon Lee PT documented in this encounterVeterans Health Administration03-25-2025 NoteSelect [facility] [place]03-25-2025 History of Present illness Narrative* Ramon Lee PT - 12/12/2024 9:15 AM EDT Episode Visit Count: 5 Therapist That Will Accept/Oversee The Plan Of Care: Ramon Lee PT. Start of Care Date: 11/21/24 Onset Date: 11/04/24 Plan of Care Certification Date: 11/21/24 Next Certification Due Date: 12/29/24 Patient Identified by Name and Date of : Yes REHABILITATION AND SPORTS THERAPY PHYSICAL THERAPY TREATMENT NOTE ASSESSMENT: Leana Camejo tolerated the session with expected muscle soreness. He demonstrated Bilateral knee collapse (worse on R) during [id number] without use of hands and with increased weight. Allowed for use of hands and placed pinktb around knees for tactile cue to keep knees out. The patient will continue to benefit from ongoing skilled physical therapy to progress toward set goals. PLAN FOR NEXT VISIT: Gross B LE Strength; Functional Strength. Add strength to HEP. SUBJECTIVE: No new falls. Has had a good last week; sore from last session. Completion of HEP 1x a day. Pain: Pain Pain Level: 0 OBJECTIVE MEASURES WITH LEVEL OF FUNCTION: LE Strength R Hip ABduction: 3/5 (Sidelying) L Hip ABduction: 3/5 (Sidelying) Vitals BP: 150/85 (BP before sci-fit) Pulse: 73 Intra Heart Rate 1: 78 Intra BP 1: 136/74 (Following sci-fit.) Intra BP Position 1: Sitting TREATMENT: Therapeutic Exercise: 1: Upright Stationary Bike: x5 Min, used for CV exercise and subj taken. 2: B LAQ: 3x10, 4# cuff. 3: *STS with b hands from table: 4x8, pinkTB around knees for tactile cue for no knee collapse. 4: Reese Standing HS Curl: 3x10, 4# cuff. 5: Alt. Hip ABD: 3x8-10, 1#cuff. Skilled Intervention: Patient was educated in proper exercise technique and purpose for exercises. Skilled judgment was used in selection of appropriate interventions. Correct performance of therapeutic exercises was facilitated with verbal and tactile cuing. Billing Therapeutic Exercise Treatment Minutes: 43 Skilled Treatment Time Minutes (timed and untimed codes): 43 Total Session Time (minutes): 43 Session Start Time : 913 Session Stop Time : 956 Ramon Lee PT documented in this encounterVeterans Health Administration03-24-2025 Telephone encounter Note * Telephone Encounter - Emily Fagan RPh - 12/11/2024 2:23 PM EDT Pharmacy Community Monitoring Outreach Patient indicated a medication question during Transitional Care Management (TCM) outreach. Encounter was routed to Pharmacy Medication Question Pool for follow up. Patient indicated Medication question(s) regarding: Medication Reconciliation Review The following was discussed with them: Patient reports he is continuing to struggle getting his hydrazaline refilled at his pharmacy and he is unclear why. Plan/Recommendations: STP - he states his PERSCRIPTION was discontinued by his pcp as he was given nifedipine, but then he had a reaction to that medication and was told to go back on hydralazine. Action: - new perscription is needed for hydralazine - per chart review - LEON Yip sent a high priority message to PCP this AM. The patient did verbalize understanding of information discussed today. I encouraged him to contactP office with any additional questions or concerns. Emily Fagan RPh December 11, 2024 2:24 PM [facility]03-24-2025 Miscellaneous Notes* Telephone Encounter - Emily Fagan RPh - 12/11/2024 2:23 PM EDT Pharmacy Community Monitoring Outreach Patient indicated a medication question during Transitional Care Management (TCM) outreach. Encounter was routed to Pharmacy Medication Question Pool for follow up. Patient indicated Medication question(s) regarding: Medication Reconciliation Review The following was discussed with them: Patient reports he is continuing to struggle getting his hydrazaline refilled at his pharmacy and he is unclear why. Plan/Recommendations: STP - he states his PERSCRIPTION was discontinued by his pcp as he was given nifedipine, but then he had a reaction to that medication and was told to go back on hydralazine. Action: - new perscription is needed for hydralazine - per chart review - LEON Yip sent a high priority message to PCP this AM. The patient did verbalize understanding of information discussed today. [facility]. Emily Fagan RPh December 11, 2024 2:24 PM documented in this encounterVeterans Health Administration03-24-2025 NoteSelect [facility] [place]03-24-2025 History of Present illness Narrative* Adriane White RN - 12/11/2024 11:53 AM EDT Transitional Care Management (TCM) Follow-Up Note PCP Update / Actionable Items Pharmacy Update / Actionable Items Patient reports he is continuing to struggle getting his hydrazaline refilled at his pharmacy and he is unclear why. Patient Source: In-Network Discharge Follow-up outreach: TCM enrolled patient Outreach Summary: Patient reports only concern is getting one of his medications refilled, hydralazine - routed to pharmacy Contact: Contact made with patient: Yes Spoke to: Patient Validation: Validated the person spoken to is actively involved in the patient's care. The patient was identified by Name and Date of . I'd like to get an update on how you're doing since our last phone call. Is now a good time to talk? Yes Symptoms: Are you feeling about the same, better or worse since leaving the hospital? Same Weekly Outreach: 2nd Outreach Medications: Do you have any questions about taking your medications, including which medications you should be on, or do you need refills on your medications? Yes The patient has questions about medications. Informed patient the pharmacy team will be in contact to discuss further. Routed to RX 4C Medication Question ([id number]) and indicate in Pharmacy Box Patient Questions / Concerns: Do you have any questions related to your discharge? No Appointment / TCM Follow-Up: Have you had a follow-up visit with your Primary Care Provider or Specialist since you were discharged? Yes Do you need any assistance with scheduling or changing your follow-up appointments? Patient alreadyhas an appointment scheduled SDOH: Has Food and Housing been addressed in [employer] in the past 3 months? Yes EDUCATION--: N/A Adriane White RN December 11, 2024 11:55 AM documented in this encounterVeterans Health Administration03-24-2025 Telephone encounter Note * Telephone Encounter - Theodora Hernandez LPN - 12/11/2024 9:14 AM EDT Prescription Refill Information The patient has been identified by name and date of : Yes Caregiver verified no other encounters exist for this prescription request: Yes Caregiver confirmed with patient/requestor that no other refills are due, in the near future, with this provider at this time: Yes The last office visit in the department: 12/08/24 Does the patient have a future office visit with this provider/department: Yes Requested Prescriptions Pending Prescriptions Disp Refills hydrALAZINE (APRESOLINE) 100 mg tablet Sig: Take 1 tablet by mouth three times a day. Theodora Hernandez LPN December 11, 2024 9:14 AM [facility]03-24-2025 Miscellaneous Notes* Telephone Encounter - Theodora Hernandez LPN - 12/11/2024 9:14 AM EDT Prescription Refill Information The patient has been identified by name and date of : Yes Caregiver verified no other encounters exist for this prescription request: Yes Caregiver confirmed with patient/requestor that no other refills are due, in the near future, with this provider at this time: Yes The last office visit in the department: 12/08/24 Does the patient have a future office visit with this provider/department: Yes Requested Prescriptions Pending Prescriptions Disp Refills hydrALAZINE (APRESOLINE) 100 mg tablet Sig: Take 1 tablet by mouth three times a day. Theodora Hernandez LPN December 11, 2024 9:14 AM * Telephone Encounter - Vicky Narvaez - 12/11/2024 8:16 AM EDT Patient was placed back on hydralazine 100 mg after hospital visit and alternative medication failure. He is asking for a new snf script to be sent to the [facility] in [place]. documented in this encounterVeterans Health Administration03-24-2025 Telephone encounter Note * Telephone Encounter - Vicky Narvaez - 12/11/2024 8:16 AM EDT Patient was placed back on hydralazine 100 mg after hospital visit and alternative medication failure. He is asking for a new lobsterman script to be sent to the [facility] in [place]. [facility]03-21-2025 Instructions* Patient Instructions* Dallas Reed MD - 12/08/2024 12:[address] HAWK FOR FOLLOW UP OF ENDOLEAK OF YOUR ANEURYSM. documented in this encounterVeterans Health Administration03-21-2025 NoteSelect [facility] [place]03-21-2025 History of Present illness Narrative* Dallas Reed MD - 12/08/2024 11:49 AM EDT This note was created using NoteWriter. Subjective Patient presents with: Hospital F/U Transitional Care Management Progress Note The patients TCM visit was performed within the 7 days of discharge. 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 Medication review completed Yes Provider Documentation: In follow-up of hospitalization, Leana Camejo is a 84 year old male with the chief complaint of transition of care. I have reviewed the patient s last hospital course including diagnostic testing performed during this hospitalization, their discharge medications, and my assessment and plan with the patient and anyfamily members present at today s visit. Leana presented 11/27 with LLQ pain for [address] scan done raised concern for endoleak of his aortic graft. He was referred to the ER, then transferred to [facility]. Patient was admitted to [facility] CICU and monitored. BP was labile. Vascular surgery did not feel that there was any need for acute surgical intervention. Dr. Concepcion recommended that if patient had no further pain then he could obtain surveillance CTA as an OP. He was transferred to the floor and medications adjusted with addition of low dose nifedipine. 3 phase CTA was not obtained while inpatient due to mild DALTON. Patient discharged on coreg and nifedipine. Patient scheduled for OP follow up with his PCP on 12/08. Patient did not tolerate nifedipine and resumed his usual hypertension regimen. He felt back to baseline. He indicated he had a follow up with Dr. Dustin Hawk, the local vascular surgeon, early next month. Review of Systems Constitutional: Negative for appetite change, fatigue and fever. Respiratory: Negative for cough and shortness of breath. Cardiovascular: Negative for chest pain, palpitations and leg swelling. Gastrointestinal: Negative for abdominal pain, constipation, diarrhea, nausea and vomiting. Genitourinary: Negative for difficulty urinating and dysuria. Neurological: Negative for dizziness, light-headedness and headaches. 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 (Hcc) Overweight (Bmi 25.0-29.9) Status Post Endovascular Aneurysm Repair (Evar) Collagenous Colitis S/P Aaa Repair Pancreatic Cyst Splenomegaly Subclinical Hypothyroidism Fall Contusion of Scalp Proximal Leg Weakness Type II Endoleak of Aortic Graft Anemia of Chronic Disease Thrombocytopenia (Hcc) PAST SURGICAL HISTORY Procedure Laterality Date ARTHRP ACETBLR/PROX FEM PROSTC AGRFT/ALGRFT 08/02/2006 Hip replacement, total, Right BLEPHAROPLASTY, UPPER EYELID 2013 CAROTID ENDARTERECTOMY Right 01/20/2021 w/ bovine patch angioplasty COLONOSCOPY - DIAGNOSTIC 01/15/2023 collagenous colitis, int hemorrhoids COLONOSCOPY FLX DX W/COLLJ SPEC WHEN PFRMD 03/18/2001 anemia COLONOSCOPY FLX DX W/COLLJ SPEC WHEN PFRMD 05/13/2010 repeat 10 yrs COLONOSCOPY FLX DX W/COLLJ SPEC WHEN PFRMD 05/21/2020 Colonoscopy ENTEROLSS FRING INTSTINAL ADHESION SPX 07/29/2015 ESOPHAGOGASTRODUODENOSCOPY TRANSORAL DIAGNOSTIC 03/18/2001 anemia ESOPHAGOGASTRODUODENOSCOPY TRANSORAL DIAGNOSTIC 05/21/2020 EGD HERNIA REPAIR W/MESH 08/31/2024 Open Spigelian Hernia repair I&D HEMATOMA Right 07/19/2019 CT guided aspiration, iliopsoas hematoma IR AAA ENDO REPAIR 2 LIMB 04/07/2023 AAA stent graft repair, [facility] RPR RECURRENT INCISIONAL HERNIA REDUCIBLE 07/29/2015 PAST SURGICAL HISTORY OF 09/09/2015 left total knee arthroplasty PAST SURGICAL HISTORY OF 09/15/2017 micro-disectomy L4-L5, with microcompression bilaterally. PAST SURGICAL HISTORY OF Right 12/16/2018 Repair of complex lateral meniscus tear, Right knee REPAIR UMBILICAL HERNIA 1980 Dr. Henry STRESS TEST 09/03/2017 normal Social History Tobacco Use Smoking status: Former Current packs/day: 0.00 Average packs/day: 1 pack/day for 2.0 years (2.0 ttl pk-yrs) Types: Cigarettes Start date: 09/20/1962 Quit date: 09/20/1964 Years since quittin.2 Smokeless tobacco: Never Vaping Use Vaping status: Never Used Substance Use Topics Alcohol use: No Drug use: No Objective BP 110/60 (BP Site: Left Arm, BP Position: Sitting, BP Cuff Size: Large Adult) Pulse 71 Temp 36.6 C (97.9 F) (Temporal) Resp 12 Ht 172.7 cm (5' 8) Wt 67 kg (147 lb 11.3 oz) SpO2 97% BMI 22.46 kg/m Physical Exam Constitutional: General: He is not in acute distress. Appearance: He is not ill-appearing. HENT: Head: Normocephalic and atraumatic. Eyes: Conjunctiva/sclera: Conjunctivae normal. Cardiovascular: Rate and Rhythm: Normal rate and regular rhythm. Occasional Extrasystoles are present. Heart sounds: S1 normal and S2 normal. No murmur heard. No gallop. Pulmonary: Effort: No respiratory distress. Breath sounds: Normal breath sounds. No wheezing or rales. Abdominal: General: Bowel sounds are normal. Palpations: Abdomen is soft. There is no mass. Tenderness: There is no abdominal tenderness. Hernia: No hernia is present. Musculoskeletal: Right lower leg: No edema. Left lower leg: No edema. Neurological: General: No focal deficit present. Mental Status: He is alert. Motor: No weakness. Gait: Gait normal. Assessment and Plan 1. Type II endoleak of aortic graft - ICD9: 996.74, ICD10: I97.89 (primary diagnosis) - See Dr. Hawk for follow up. He is establish with [facility] and did not need a referral. 2. Chronic diastolic CHF (congestive heart failure) (HCC) - ICD9: 428.32, 428.0, ICD10: I50.32 - Compensated - Continue current medications 3. Stage 3b chronic kidney disease (HCC) - ICD9: 585.3, ICD10: N18.32 - eGFR: 43 Worsening - Counseled on avoiding NSAIDs, adequate hydration 4. Essential hypertension - ICD9: 401.9, ICD10: I10 - Controlled - Continue current medications Dallas Reed MD documented in this encounterVeterans Health Administration03-21-2025 NoteSelect [facility] [place]03-21-2025 History of Present illness Narrative* Ramon Lee, PT - 12/08/2024 9:13 AM EDT Episode Visit Count: 4 Therapist That Will Accept/Oversee The Plan Of Care: Ramon Lee PT. Start of Care Date: 11/21/24 Onset Date: 11/04/24 Plan of Care Certification Date: 11/21/24 Next Certification Due Date: 12/29/24 Patient Identified by Name and Date of : Yes REHABILITATION AND SPORTS THERAPY PHYSICAL THERAPY TREATMENT NOTE ASSESSMENT: Leana Camejo tolerated the session with fatigue and expected muscle soreness. He demonstrated difficulty with right lower extremity lateral step ups compared to the LLE. The patient will continue to benefit from ongoing skilled physical therapy to progress toward set goals. PLAN FOR NEXT VISIT: HS Curl Machine; Progress Balance. SUBJECTIVE: No new falls. Reports quad and calf soreness bilat from exercises. See's PCP today to follow up on his hospital admission. Pain: Pain Pain Level: 0 OBJECTIVE MEASURES WITH LEVEL OF FUNCTION: Vitals BP: 110/62 (Prior to sci-fit) Pulse: 66 (Prior to sci-fit) Intra Assessment 1: (Following Sci-Fit.) Intra Heart Rate 1: 80 Intra BP 1: 122/75 Intra BP Position 1: Sitting TREATMENT: Therapeutic Exercise: 1: Sci-Fit for Warmup: 6 Min, Level 3.0. Direct 1:1 & subjective. Used for CV endurance. 2: 6 Fwd [place]ell: 2x10 each. Use of 1 hand. 3: 6 Lateral [place]: 2x10 each. Use of 1 hand. 6: Toe & Calf Raises: 3x8-10.. Skilled Intervention: Patient was educated in proper exercise technique and purpose for exercises. Skilled judgment was used in selection of appropriate interventions. Correct performance of therapeutic exercises was facilitated with verbal cuing. Neuromuscular Re-Education: 1: Tandem Stance Balance on Ground, EO with intermittent touch on // bars as needed: 4x20 each legback. 2: Retro Walking : x5 (15 Feet). Encouraging Bigger Strides. 3: Tandem Fwd Walking: x5 (15feet). CGA Skilled Intervention: Skilled judgment used to assess appropriate program for balance and coordination activity. Ensured safety with use of gait belt and therapist assistance prn Billing Therapeutic Exercise Treatment Minutes: 25 Neuromuscular Re-Education Treatment Minutes: 15 Skilled Treatment Time Minutes (timed and untimed codes): 40 Total Session Time (minutes): 40 Session Start Time : 914 Session Stop Time : 954 Ramon Lee PT documented in this encounterVeterans Health Administration03-19-2025 History of Present illness Narrative* Ramon Lee, PT - 12/06/2024 9:54 AM EDT Program_ID:[id number] Access Code: [email or web address] URL: [email or web address] Date: 12-06-2024 Prepared By: Ramon Lee Program Notes Exercises - Sit to Stand with Armchair - 2 x daily - 7 x weekly - 2-3 sets - 10 reps - Sit to Stand with Hands on Knees - 2 x daily - 7 x weekly - 2-3 sets - 5-6 reps - Standing Hip Abduction with Counter Support - 2 x daily - 7 x weekly - 2-3 sets - 8-10 reps - Standing March with Counter Support - 2 x daily - 7 x weekly - 2-3 sets - 10-15 reps - Heel Raises with Counter Support - 2 x daily - 7 x weekly - 2 sets - 10-15 reps * Ramon Lee, PT - 12/06/2024 9:17 AM EDT Episode Visit Count: 3 Therapist That Will Accept/Oversee The Plan Of Care: Ramon Lee PT. Start of Care Date: 11/21/24 Onset Date: 11/04/24 Plan of Care Certification Date: 11/21/24 Next Certification Due Date: 12/29/24 Patient Identified by Name and Date of : Yes REHABILITATION AND SPORTS THERAPY PHYSICAL THERAPY TREATMENT NOTE ASSESSMENT: Leana Camejo tolerated the session with expected muscle soreness. He demonstrated tolerance to all activity following recent hospital admission (see subjective). The patient will continue to benefit from ongoing skilled physical therapy to progress toward set goals. PLAN FOR NEXT VISIT: HS Curls, SLR; Dynamic Balance. SUBJECTIVE: Patient with recent ED visit and [facility] in [facility]. From Chart - admitted on 11/28 after starting to have LLQ pain starting Friday 11/24. [facility] and they ordered a CT that showed an enlarged abdominal aorta comapred toprior. Patient was recommended to present to hospital. Patient went to [facility] and there hisSBP was 140. Patient was transferred to [facility] CICU. Was in the hospital for 3 days for Type II endoleak of aortic graft. Has not been able to do to much lately. Follows up in December. States no new falls. Pain: Pain Pain Level: 0 OBJECTIVE MEASURES WITH LEVEL OF FUNCTION: Good form demonstrated throughout session and completion of ther-ex. Vitals BP: 148/77 (Prior to Sci-Fit) Pulse: 60 Additional Vitals: Yes Intra Assessment 1: (Following Sci-Fit) Intra Heart Rate 1: 80 Intra BP 1: 160/79 Intra BP Position 1: Sitting Post Assessment: BP Post, Heart Rate Post (Following Session.) Post Heart Rate: 80 Post BP: 148/78 TREATMENT: Therapeutic Exercise: 1: Sci-Fit for Warmup: 5 Min, Level 3.0. Direct 1:1 & subjective. 2: Seated LAQ: 3x12, 3# cuff. 3: Seated Marches: 3x12, 3#cuff. 4: Alt. Hip ABD: 3x8-10, 1#cuff. 5: Lateral Monster Walks at Counter: 4 Laps of 12 feet, pinktb above knees. 6: *Calf Raises: 2x15. Skilled Intervention: Patient was educated in proper exercise technique and purpose for exercises. Reviewed and educated patient on additions/changes for home exercise program as above (*). Skilled judgment was used in selection of appropriate interventions. Provided written instruction for home exercise program to facilitate proper performance and compliance. Correct performance of therapeutic exercises was facilitated with verbal cuing. Billing Therapeutic Exercise Treatment Minutes: 41 Skilled Treatment Time Minutes (timed and untimed codes): 41 Total Session Time (minutes): 41 Session Start Time : 914 Session Stop Time : 955 Ramon Lee PT documented in this encounterVeterans Health Administration03-19-2025 NoteSelect [facility]ty [facility] [place]03-17-2025 NoteHNO ID: [id number] Author: DALLAS REED MD Service: ? Author Type: Physician Type: Progress Notes Filed: 12/05/2024 12:54 Note Text: Medication list updated. Continue current medications per patient report. Follow up this Wednesday as scheduled.[facility]03-17-2025 History of Present illness Narrative* Dallas Reed MD - 12/04/2024 2:11 PM EDT Medication list updated. Continue current medications per patient report. Follow up this Wednesday as scheduled. * Yessenia Price, [facility] - 12/04/2024 7:13 AM EDT TRANSITION CARE MANAGEMENT (TCM) HEART FAILURE PHARMACY CONTACT Provider Action/FYI: TCM Medication Reconciliation completed for patient. See medication list table below for details. ACTION REQUIRED: Pt stated that he resumed his previous home regimen of Hydralazine 100mg TID, Furosemide 20mg everyday, and Losartan 100mg daily on his own after he was not able to tolerate Nifedipine due to edema.Sending to PCP to review - Please update med list to reflect these changes if you agree or have high school learning support teacher contact pt to advise what you recommend (as pt was not able to tolerate Nifedipine). Please see telephone enc dated 12/02/24 for further info. Patient Workup: HF medication classes present on medication list: CHASITY/ARB/ARNI NO Beta adrienne YES - carvedilol Aldosterone antagonist NO SGLT2i NO Hydralazine/Isosorbide YES - hydrALAZINE Ivabradine NO Loop diuretics NO Digoxin NO New HF medication class(es) added this admission: No (Patient to be counseled on new medications iffull medication review completed) Last documented LVEF: LV Ejection Fraction (%) Date Value 11/29/2024 57 Last documented weight: Last Wt 12/01/24 69.3 kg (152 lb 12.5 oz) Patient was sent a message via [employer] including the link to the [facility] Heart Failure education video: Yes Initial contact with patient post discharge, spoke to patient, and verified that any applicable caregiver is active in patient's medical care. Patient identified by name and . Summary: -Pt discharged from [facility] on 12/01/24. -Medication review done Full medication review completed Patient Concerns: Review and discussion of medications with patient as outlined in medication table below. Source of medication information obtained from Medication list. Dispense records from pharmacy also utilized to obtain additional medication fill history. No additional reported medication questions or concernsat this time. ROS: Denies new or worsening shortness of breath at rest and on exertion (orthopnea, PND, bendopnea, wheezing/coughing). Denies new or worsening symptoms of edema (abdominal, early satiety, lower extremity, or abnormal weight gain). Denies new or worsening CP, palpitations, HERNANDEZ, blurred vision. Denies new or worsening dizziness, lightheadedness, syncope. Denies new or worsening N/V, diarrhea, abdominal pain. Denies potential medication adverse effects. Red flag symptom(s) identified during call: No VITALS and WEIGHT HOME MONITORING: Patient does have BP monitor at home, most recent home BP/HR: 121/62mmHg, Pulse 72 . Patient took meds this A.M. Patient does have scale at home, most recent home weight: Pt has not checked yet today . History of Present Illness: The following content has been copied and pasted from patient's discharge summary. If discharge summary unavailable, After Visit Summary or last pertinent inpatient notes are copied and pasted. Admission Diagnosis: AAA Discharge Diagnosis: AAA Secondary Diagnoses: Patient Active Hospital Problem List: Type II endoleak of aortic graft Date Noted: 11/28/2024 Essential hypertension Date Noted: 07/21/2005 CKD (chronic kidney disease) stage 3, GFR 30-59 ml/min (HCC) Date Noted: 02/20/2014 Mixed hyperlipidemia Date Noted: 07/21/2005 Status post endovascular aneurysm repair (EVAR) Date Noted: 01/20/2021 Subclinical hypothyroidism Date Noted: 09/08/2024 Anemia of chronic disease Date Noted: 11/30/2024 Thrombocytopenia (HCC) Date Noted: 11/30/2024 Reason for Hospitalization: Leana Camejo was admitted on 11/28 after starting to have LLQ pain starting Friday 11/24. Patient went to [facility] urgent care on Wednesday and they ordered a CT that showed an enlarged abdominal aorta comapred to prior. Patient was recommended to present to hospital. Patient went to [facility] and there hisSBP was 140. Patient was not given any medications there and he was recommended to be transferred to [facility]. Hospital Course: Patient admitted to [facility] and was started on impulse control with home carvedilol. Home losartan and hydral were held and patient transiently kept on IV nipride while vascular surgery was consulted. Lipase was normal. NT pro BNP was 1100 (no prior). TSH 9.1. HS trops 131 and then 129. Vascular surgery consulted and did not feel that there was any need for acute surgical intervention and recommended impulse control and OP follow up for surveillance. Dr. Concepcion recommended that if patient had no further pain then he could obtain surveillance CTA as an OP. However, if renal function permits, to obtain a 3 phase CTA while inpatient. Patient had stable hemodynamics and was transferred out of ICU to imaging service on 11/30. On the floor, patient's blood pressure was initially quite hypotensive and patient's meds were held and patient given a fluid bolus which improved BP.Patient with more robust BP on 12/01 and resumed home coreg and then added on low dose nifedipine. BP normalized prior to discharge. Planning to follow up as OP with PCP for further optimization of ant ihypertensives and vascular surgery with repeat 3 phase CTA (not obtained while inpatient due to mild DALTON). Patient discharged on coreg and nifedipine. Patient scheduled for OP follow up with his PCPon 12/08. Consults: Vascular Surgery Major Procedure or Operation: None Other Procedures, Testing & Radiology: Echo, EKG, CXR Patient Condition at Discharge: Improved Disposition: Home with Self Care Medication Reconciliation: Legend: Stopped, New, Changed, Added to list Medication List Medication Directions Comments Action/Plan ascorbic acid, vitamin C, 500 mg cap DAILY aspirin 81 mg chewable tablet Take 1 tablet by mouth once daily. bempedoic acid (NEXLETOL) 180 mg tablet Take 1 tablet (180 mg) by mouth once daily. carvedilol (COREG) 12.5 mg tablet Take 1 tablet by mouth two times a day with meals. Cholecalciferol, Vitamin D3, 25 mcg (1,000 unit) cap Take 5,000 Units by mouth once daily. No results found for: VITD25] doxazosin (CARDURA) 8 mg tablet Take 1 tablet by mouth daily at bedtime. ezetimibe (ZETIA) 10 mg tablet Take 1 tablet by mouth once daily. fluticasone (FLONASE) 50 mcg/actuation nasal spray Use 1 [place] in each nostril daily at bedtime. Discontinued: 12/01/2024 1:30 PM Dc'd, Pt resumed taking on his own Pt resumed Furosemide 20mg daily on his own Notifying Cardiology team glucosamine/chondr rich A sod (OSTEO BI-FLEX ORAL) Take 2 tablets by mouth once daily. Discontinued: 12/01/2024 1:30 PM DC'd Home losartan and hydral were held hydrALAZINE (APRESOLINE) 50 mg tablet Take 50 mg by mouth three times a day. Historical Med added back on 12/02/24: Begin hydralazine 50 mg TID.Continue coreg 12.5 mg. Take lasix PO 20 mg x1 tonight only. If skin not better in a couple days go to urgent care. Pt resumed Hydralazine 100mg TID on his own Notifying Cardiology team levOCARNitine (L-CARNITINE) 500 mg capsule Take 500 mg by mouth. QD Updated SIG levothyroxine (SYNTHROID) 25 mcg tablet Take 1 tablet by mouth daily before breakfast. TSH Date Value 11/28/2024 9.100 mIU/L 11/27/2024 8.680 mIU/L 07/02/2021 4.190 uU/mL 12/25/2015 3.980 uU/mL Latest Reference Range & Units 11/28/24 21:15 Free T4 0.9 - 1.7 ng/dL 1.2 Discontinued: 12/01/2024 1:30 PM DC'd Home losartan and hydral were held Pt resumed Losartan 100mg daily on his own Notifying Cardiology team Magnesium 200 mg tab Take 400 mg by mouth once daily. Magnesium Date Value Ref Range Status 11/30/2024 2.3 1.7 - 2.3 mg/dL Final multivit-minerals/FA/lycopene (ONE-A-DAY MEN'S ORAL) Take 1 tablet by mouth once daily. Discontinued: 12/01/2024 3:29 PM See below Discontinued: 12/02/2024 7:04 PM Per 12/02/24 telephone encounter, Pt did not tolerate Called w cc of new onset significant bilateral lower extremity swelling, erythema. He was just started on nifedipine. Concern that these symptoms may be driven by this agent. Advised to stop nifedipine triamcinolone acetonide (KENALOG) 0.1 % cream None Entered Pt is not taking Removed TURMERIC ORAL Take by mouth. 1 capsule daily Updated SIG ubidecarenone/vitamin E mixed (COQ10 SG 100 ORAL) Take by mouth. 1 capsule daily Updated SIG vitamin b complex (B COMPLETE) tab Take 1 tablet by mouth once daily. Zinc Gluconate 50 mg tablet Take 50 mg by mouth once daily. Pt is not taking Removed Preferred pharmacy: [facility] [address] [place] [phone] [id number] [facility] - [phone] [facility] [id number] Estimated Creatinine Clearance: 33.5 mL/min (A) (based on SCr of 1.59 mg/dL (H)). Estimated Glomerular Filtration Rate (mL/min/1.73m ) Date Value 12/01/2024 43 (L) eGFR- (no units) Date Value 07/02/2021 57 Additional follow up: Next 5 Appointments Date and Time Provider Department Dept Phone 12/06/2024 9:15 AM Ramon Lee PT [facility] [phone] 12/08/2024 9:15 AM Ramon Lee PT [facility] [phone] 12/08/2024 11:40 AM Dallas Reed INTM [facility] [phone] 12/12/2024 9:15 AM Ramon Lee PT [facility] [phone] 12/15/2024 9:15 AM Ramon Lee PT [facility] [phone] Interventions Made: Adherence counseling Pharmacist Recommendations Made Potential drug interaction/side effects/adverse effects detected Care Coordination: Escalated to specialist provider Time spent on patient: 45-60 minutes Yessenia Price RPh December 04, 2024 7:14 AM documented in this encounterVeterans Health Administration03-17-2025 NoteSelect [facility] [place]-17-2025 History of Present illness Narrative* Adriane White, CHRISTIANO - 12/04/2024 9:40 AM EDT Transition Care Management (TCM) Initial Outreach PCP Update / Actionable Items HRTIC TCM Home Visit Referral Source of Stratification: TCM HUB Hospital Admission Status: Discharged Readmission Risk Score: 11 Patient's zip code: [address] Is zip code within program service area: No Patient meets program referral criteria: No Patient does not qualify for High Risk TCM Home Visit program due to: Patient's zip code is not located within program service area Readmission Risk Score does not meet criteria Disposition: Patient does not qualify for HRTIC, will provide TCM outreach follow-up for 30-days Patient Source: In-Network Discharge Initial outreach: TCM discharge report Outreach Summary: Patient reports to feeling ok, [facility] any questions at this time, confirmed pcp follow up with patient. Patient discharged from [facility] Discharge date: 12/01/24 Admitted for: Type 2 endoleak of aortic graft Readmission Risk: 11 Value-Based Contract: ACO Contact: Contact made with patient: Yes Hi, my name is Adriane White RN and I am calling from the [facility] on behalf of your Primary Care Provider, Dallas Reed MD. I understand you were recently in the hospital, so I am calling to check in with you to ensure you are feeling well now that you are home. May I ask you a few questions related to your hospital stay and well-being? Yes Spoke to: Patient Validation: Validated the person spoken to is actively involved in the patient's care. The patient was identified by Name and Date of . Symptoms: Are you feeling about the same, better or worse since leaving the hospital? Same Medications: Do you have any questions about taking your medications, including which medications you should be on, or do you need refills on your medications? No Medication Review: Declined at this time per patient preference Discharge Instructions: Your Discharge Instructions / After Visit Summary (AVS) are important in guiding you through the recovery process. Do you have any questions related to your discharge instructions? No Home Care: Were you discharged with home care? No Equipment: Do you have all the necessary equipment and supplies needed at your home? Not applicable Social: Your mental health is as important to us as your physical health. Would you mind answering a few questions on this topic? No, patient declines. Follow-Up Appointment: [Appointment / TCM Follow-up within 14 days] I would like to help you schedule a hospital follow-up virtual or telephone visit with your PCP. This is a great way for you to connect with your provider to ensure you have safely transitioned home.If you are agreeable, I will send your request to a rubber and pounder who will contact and assist you with that appointment. This will give you an opportunity to ask any questions or address any concerns youmay have with your PCP. Inform the patient that if they have any questions or concerns prior to that appointment, to call their PCP's office right away. Appointment Action: No action required; patient already has appointment scheduled. Education details: N/A Adriane White RN December 04, 2024 9:43 AM documented in this encounterVeterans Health Administration03-17-2025 NoteSelect [facility] Specialty [facility] [place]03-15-2025 Telephone encounter Note* Telephone Encounter - Dustin Lombardi APRN.CNP - 12/02/2024 6:09 PM EDT Called w cc of new onset significant bilateral lower extremity swelling, erythema. He was just started on nifedipine. Concern that these symptoms may be driven by this agent. Advised to stop nifedipine. Begin hydralazine 50 mg TID.Continue coreg 12.5 mg. Take lasix PO 20 mg x1 tonight only. If skinnot better in a couple days go to urgent care. Follow up with PCP. Continue close monitoring of blood pressure as you are doing. Any new/worsening symptoms please proceed to ED. All questions answered, patient agrees with plan. Dustin Lombardi APRN.CNP 7:06 PM [facility] Work Phone: [phone] Miscellaneous Notes* Telephone Encounter - Dustin Lombardi APRN.CNP - 12/02/2024 6:09 PM EDT Called w cc of new onset significant bilateral lower extremity swelling, erythema. He was just started on nifedipine. Concern that these symptoms may be driven by this agent. Advised to stop nifedipine. Begin hydralazine 50 mg TID.Continue coreg 12.5 mg. Take lasix PO 20 mg x1 tonight only. If skinnot better in a couple days go to urgent care. Follow up with PCP. Continue close monitoring of blood pressure as you are doing. Any new/worsening symptoms please proceed to ED. All questions answered, patient agrees with plan. Dustin Lombardi APRN.CNP 7:06 PM documented in this encounterVeterans Health Administration03-14-2025 NoteSelect [facility] [place]03-14-2025 NoteSelect [facility] [place]03-13-2025 NoteSelect [facility] [place]03-11-2025 NoteSelect [facility] [place]03-11-2025 History of Present illness Narrative* Tali Maldonado APRN.CNP - 11/28/2024 10:08 PM EDT Images from the original note were not included. Critical Care Transport Note Patient Name: Leana Camejo Service Date: 11/28/24 Referring Physician: Isaac Referring Facility: [facility] Accepting Physician: Gabrielle Accepting Facility: [facility] SUBJECTIVE/CHIEF COMPLAINT: LLQ abdominal pain REASON FOR TRANSPORT: Specialized tertiary and quaternary care for the patient's acute cardiovascular condition not available at the referring facility. History of Present Illness: The following history is what was known to CCT team at time of given care and summarized through review of available medical records, patient/family interview and from referring physician and nursing report. Leana Camejo is a 84 year old male with a past medical history significant for AAA (s/p endoluminal stent including R & L common iliac in 2022), HTN, TIA, CAD, HFpEF, abdominal hernia, renal disease, irregular heart beat (not specified in documentation), IBS, R ICA stenosis, anemia and HPL. He presented to [facility] today for evaluation of acute onset abdominal pain. Per rep ort he has had LLQ abdominal pain since Wednesday (11/24/24). In the ED he was noted to be mildly hypertensive, no N/V, no peripheral numbness/tingling. CT noted interval increased size of abdominal aortic aneurysm sac compared to prior exam, interval increased blush within the [place] aortic sac, evidence of type 2 endo leak. He was given morphine and zofran in the ED. At this time, the physician managing the patient requested transfer to the [facility] for tertiary and/or quaternary services unavailable at the referring facility. The physician managing the patient requested the [facility] Critical [facility] Team transport and treat the patient for the purpose of tertiary care, evaluation, and management of his acute AAA with endoleak condition(s). Air medical transport was requested to reduce the [id number]-[id number] time, 27 minutes by air vs. approximately 70 minutes by ground, with the potential for increased ground transport time secondary to: distance between facilities and the patient's condition requiring an emergent procedure or evaluation not available at the referring facility and distance between facilities and ground round transport time would be excessive and detrimental to patient given current cl inical status ROS: RESPIRATORY: Negative for cough, hemoptysis, wheezing, COPD, dyspnea or shortness of breath CARDIOVASCULAR: Negative for chest pain, leg swelling, hypertension, CHF or palpitations GI: +LLQ abdominal pain, worsens with deep inspiration. No nausea, vomiting, or diarrhea HEMATOLOGY/LYMPHOLOGY: Denies AC use.Negative for prolonged bleeding, bruising easily or swollen nodes. NEURO: Denies peripheral numbness or tingling. No history of headaches, syncope, paralysis, seizures or tremors The remainder of the review of systems is negative. PAST MEDICAL HISTORY: PAST MEDICAL HISTORY Diagnosis Date Abdominal aortic aneurysm (AAA) without rupture ([facility]) 08/26/201708/2017: 3.7 cm Anemia Chronic diastolic CHF (congestive heart failure) ([facility]) 10/20/[address] Montes CKD (chronic kidney disease) stage 3, GFR 30-59 ml/min ([facility]) 02/20/2014 Collagenous colitis 02/04/2023 COVID-19 09/12/2021 DDD (degenerative disc disease), lumbar 08/26/2017 Diarrhea Diverticulosis of colon (without mention of hemorrhage) Hematoma of right iliopsoas muscle 06/21/2019 Internal hemorrhoids without mention of complication Lumbar radiculopathy 08/26/2017 Mixed hyperlipidemia Hyperlipidemia S/P carotid endarterectomy right 01/20/2021 Unspecified essential hypertension Essential hypertension PAST SURGICAL HISTORY: Aortic endovascular stent placement 2022 ALLERGIES: Clonidine, Crestor [Rosuvastatin Calcium], Lipitor [Atorvastatin Calcium], Lisinopril, and Statins [Voyqqjl-Tus-Xyq Reductase Inhibitors] SOCIAL HISTORY: Social History Tobacco Use Smoking status: Former Current packs/day: 0.00 Average packs/day: 1 pack/day for 2.0 years (2.0 ttl pk-yrs) Types: Cigarettes Start date: 09/20/1962 Quit date: 09/20/1964 Years since quittin.2 Smokeless tobacco: Never Vaping Use Vaping status: Never Used Substance Use Topics Alcohol use: No Drug use: No HOME MEDICATIONS: Losartan 100 mg Vit D3 Vit C Carvedilol 12.5 mg Doxazosin 8 mg Hydralazine 100 mg Mag Oxide 400 mg ASA 81 mg Bempedoic acid 180 mg Ezetimibe 10 mg Furosemide 20 mg Tramadol 50 mg Medications Administered by Referring Facility: Morphine 4 mg Zofran 4 mg OBJECTIVE: Recent Labs, Diagnostics & Procedure Reports reviewed as available. Referring Facility Labs CBC: WBC 5.1k Hgb 12.4 Hct 38.5 Plt 93K Remaining labs pending and not available at the time of transport Diagnostics & Procedure Reports ECG: NSR per transport monitor CT Scan chest: (per OSH radiology report) Interval increase in size of the abdominal aortic aneurysmal sac when compared to prior examination Interval increase in contrast blush within the [place] aortic sac. These findings consistent with progressive effects of type 2 endo leak. 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 Progressive splenomegaly Cystic mass within the body of the pancreas may suggest IPMN Colonic diverticulosis without evidence of diverticulitis Thickening of gastroesophageal junction Procedure/Operative Report(s): None Invasive Lines/Devices/Tubes Placed by Referring Facility: PIV x 2 PHYSICAL EXAM: Upon CCT Arrival at Referring Facility Vital Signs: HR 83bpm, BP 144/85(105)mmHg, RR 18, SpO2 92% Oxygen/Ventilator Settings: RA General appearance: alert, pleasant. HEENT: normocephalic, EOMI, PERRL 2 mm, briskly reactive. Oropharynx clear, no plaques or exudates,Posterior Oropharynx symmetric, Mucous membranes moist, Nasal mucosa non-edematous, and No rhinorrhea Respiratory: clear to auscultation bilaterally, no respiratory distress, no rales, no rhonchi, no wheezing, no retractions, no cyanosis. Cardiovascular: no murmurs, no rubs, no gallops, regular rate and rhythm, peripheral pulses symmetric. No peripheral edema noted. Extremities warm, cap refill < 3 sec Gastrointestinal: lower abdomen distended, soft, nontender, and normal bowel sounds. Genitourinary: Exam deferred Musculoskeletal: No clubbing, cyanosis or edema, no joint swelling, no bony tenderness, and no deformities Skin: normal, no abrasions or open wounds, no rashes noted Heme/Lymph: No petechiae. No abnormal bruising or bleeding noted Neurologic: Awake, alert and oriented x 3, normal speech, No involuntary motions, Normal sensation GCS Eyes: 4. Spontaneous Verbal: 5: Oriented Motor: 6: Obeys Motor commands Total: 15 CRITICAL CARE COURSE Upon bedside arrival at referring facility the patient was assessed and detailed physical exam performed. Initial exam findings as described above. The patient was placed on the transport monitor andall transport equipment transitioned in standard fashion. Pt awake, oriented, minimal continued pain. The patient was transferred to the transport cot and transported to the Aircraft and loaded without incident. The patient was medically managed, monitored, and reassessed during transport. Medications Managed & Administered by CCT: Metoprolol 5 mg IV x 2 Nitroprusside - started and titrated Procedures Performed by CCT: none ASSESSMENT/PLAN: Leana Camejo is a 84 year old male was admitted to OSH with acute onset LLQ abdominal pain. CT showed acute enlarged AAA with evidence of type 2 Endoleak Acute Type 2 endoleak AAA Hypertensive emergency - Initial exam as noted above, pt awake, oriented - LLQ abdominal pain x 5 days - Known hx AAA - s/p stent placement 2022 - CT showed interval incr sz of AAA with evidence of type 2 endoleak - Morphine and zofran given in ED - Metoprolol as needed for HR/BP management - Nitroprusside for additional BP management - Goal SBP 110-120 mmHg, HR < 70 - Expedite transport to [facility] for further workup and care The transport was completed without significant incident or change in the patient's status. The patient was transported to the the [facility] by Rotor (Helicopter) for tertiary and/or quaternary evaluation and management of his Critical Surgical condition(s). Upon arrival to the receiving facility, a [id number] report was given to bedside nursing staff [id number] and bedside medical team . Patient care was transferred. The patient condition was Critical and Acutely Ill at the time of transfer. Vital Signs at time care transferred to the receiving facility unit: HR 74bpm, Rhythm NSR, BP 120/64(83) mmHg, RR 16, SpO2 94% on 3 L O2 via NC SPECIAL EQUIPMENT: None MODE OF TRANSPORT: Rotor (Helicopter) CRITICAL CARE TIME:I personally performed 30 minutes of critical care time exclusive of separately billable procedures, ambulance charges and treating other patients. This was necessary to treat or prevent further deterioration of the following condition(s): Acute AAA, type 2 endoleak and the Cardiovascular impairment, Respiratory impairment, PREFABRICATOR impairment, Shock, Cardiac Arrest, and Severe metabolic abnormality which the patient had and/or had a high probability of suddenly developing. SIGNATURE: Tali Maldonado APRN.CNP Acute Care Nurse Practitioner [facility] Critical [facility] Team documented in this encounterVeterans Health Administration03-11-2025 Discharge summary [facility] Medical Records Department [address] [place] [id number] Emergency Department Summary 11/28/24 MR#: [id number] Acct: [id number] Name: LEANA CAMEJO Rep #:[id number] : 1940 84 From: Nate Gray MD PCP: Dr. Dallas Reed MD Status:P RE ER Location: ED HPI History of Present Illness Chief Complaint: General Illness Detail of Chief Complaint: Left lower quadrant abdominal pain for 5 days. Onset/Context/Timing Current Severity: Mild Maximum Severity: Mild Narrative Narrative: 84-year-old male known history of AAA with prior stent about a year ago. Patient had a prior TIA. States that he had a long 1 on Wednesday had left lower quadrant abdominal pain which she has had for 5 days and was seen by [facility] physician's office yesterday. They did a CAT scan. CAT scan shows the AAA to be 6 cm. And his doctor's office going to get him in 1 to be seen in the emergency department. He denies any anterior abdominal pain except the left lower quadrant. He denies any vomiting or diarrhea. He denies any dysuria. Denies any fever or back pain. Prior similar symptoms: No Recent Illness/Hospitalization: No PFSH PFS Medical History Spigelian hernia Wears hearing aid Wears glasses History of steroid therapy Arthritis History of renal disease TIA (transient ischemic attack) Ataxia History of echocardiogram Easy bruising History of IBS Former smoker History of stress test Cardiology follow-up encounter History of irregular heartbeat Preop cardiovascular exam Stenosis of right internal carotid artery Abdominal aortic 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 Essential hypertension Lumbar disc disease 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 Hyperlipidemia Diverticulosis Pre-operative cardiovascular examination Anemia 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, NYHA class 2 RSV (respiratory syncytial virus pneumonia) Shortness of breath Cough productive of purulent sputum Home Medications ?Medication ?Instructions ?Recorded ?Last Taken ?Type losartan 100 mg tablet 100 mg PO DAILY BP 05/17/19 08/31/24 05:30 History cholecalciferol (vitamin D3) 50 2,000 unit PO DAILY rich pplement 05/18/19 05/23/24 History mcg (2,000 unit) capsule multivitamin 1 tab PO DAILY supplement 05/21/24 History ascorbic acid (vitamin C) 500 mg 2,000 mg PO DAILY sup plement 02/14/20 05/23/24 History capsule carvedilol 12.5 mg tablet 12.5 mg PO BID heart #180 ta bs 11/12/21 08/31/24 Rx doxazosin 8 mg tablet 8 mg PO QHS prostate 4 05/22/24 History hydralazine 100 mg tablet 100 mg PO TID blood pressure 05/23/24 08/31/24 History magnesium oxide 400 mg (241.3 mg 400 mg PO DAILY suppl ement 05/23/24 05/21/24 History magnesium) tablet aspirin 81 mg chewable tablet 81 mg PO BREAKFAST 30 da ys #30 tabs 05/24/24 08/16/24 Rx Held on 08/31/24. Instructions: Resume on 09/01/24. bempedoic acid 180 mg tablet 180 mg PO DAILY 07/11/24 Unknown History (Nexletol) ezetimibe 10 mg tablet 10 mg PO DAILY 07/11/24 Unkn own History furosemide 20 mg tablet 20 mg PO DAILY 07/11/24 Unkn own History tramadol 50 mg tablet 50 mg PO Q6H PRN pain 3 days #5 08/31/24 Unknown Rx tabs Allergy/AdvReac Type Severity Reaction Status Date / Time lisinopril Allergy Intermediate Rash Verified 11/28/24 17:53 atorvastatin calcium (From Allergy Other Verified 11/28/24 17:53 Lipitor) clonidine Allergy Unknown Verified 11/28/24 17:53 rosuvastatin calcium (From Allergy Other Verified 11/28/24 17:53 Crestor) Zslfgyo-PMC-ZxL Reductase Allergy Other Verified 11/28/24 17:53 Inhibitor (Rewoicx-Mhg-Phn Reductase Inhibitor) Family History Father Lung cancer Liver cancer Mother Oral cancer Surgical History S/P spigelian hernia repair, follow-up exam S/P AAA repair History of right-sided carotid endarterectomy Hx of cataract surgery Hx of appendectomy History of tonsillectomy History of back surgery History of colonoscopy History of blepharoplasty History of inguinal hernia repair History of umbilical hernia repair 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 Denies fever. Denies vomiting or diarrhea. Denies dysuria. Constitutional Constitutional ED: Denies chills or fever(s) Eyes Eyes: Denies blurry vision ENT ENT ED: Denies ear pain Cardiovascular Cardiovascular: Denies chest pain Respiratory/Chest Respiratory/Chest: Denies cough or dyspnea Gastrointestinal Gastrointestinal: Reports abdominal pain; Denies constipation, diarrhea or vomiting Genitourinary Genitourinary ED: Denies dysuria or hematuria Musculoskeletal Musculoskeletal: Denies arthralgias or back pain Integumentary Denies abscess Neurologic Neurologic: Denies headache(s) Psychiatric Psychiatric: Denies anxiety Endocrine Endocrinology: Denies cold intolerance Hematologic/Lymphatic Hematologic/Lymphatic: Reports none Allergic/Immunologic Allergic/Immunologic ED: Denies mouth swelling, tongue swelling or urticaria EXAM Physical Exam Narrative Exam Narrative: 84-year-old male vital signs are stable afebrile. Initial blood pressure 130/67. He does not look septic toxic or any distress. He sitting upright in bed. Family members at bedside. H EENT exam pupils round react to light. Mytrex members. Neck nontender no JVD. Lungs clear to auscultation bilaterally. Heart regular rhythm rate about 87 no murmur. Chest wall ribs nontender. Abdomen soft, nondistended, normal bowel sounds without peritoneal signs. He has mild reproducible tenderness in the left lower quadrant only. There is no pulsatile mass. Right upper and right lower quadrants are unremarkable. He is equal and symmetrical femoral pulses. He has a well-healedsurgical scar from the left lower abdominal hernia. There is no current herniaspresent. Moving all 4 extremities. Nontender no edema. Normal strength. He is awake and alert. No focal motor deficits. Back is nontender. Const Vital Signs: 11/28/24 17:53 11/28/24 18:15 11/28/24 18:47 Temperature 98.2 F Temperature Source Oral Pulse Rate 87 81 Respiratory Rate 22 H 81 H Respiratory Effort Normal Non-Labored Respiratory Pattern Normal Blood Pressure 130/67 H 136/72 H Blood Pressure Mean 88 93 Pulse Ox 95 94 Oxygen Delivery Method Room Air Room Air Positive well nourished and well developed; Negative for obese, cachectic, contractures or unkempt General Appearance ED: well developed and NAD; Negative for unkempt, cachectic, contractures, cyanotic, diaphoretic or pallor Nutritional Appearance: Negative for cachectic or obese HEENT Reports moist mucous membranes Negative for trauma or tenderness Eyes PERRL and EOMs intact bilaterally General Eye ED: Negative for pale conjunctiva or scleral icterus Neck no lymphadenopathy, supple and no JVD General: Negative for tenderness Chest Wall inspection of chest normal and palpation of chest normal Resp normal respiratory effort and clear to auscultation bilaterally Effort and Inspection: Negative for retractions Auscultation: Negative for rales, rhonchi, wheezes or diminished lung sounds Cardio regular rate, regular rhythm, S1 normal heart sound, S2 normal heart sound and no murmurs Palpation: Negative for palpable S3 or palpable S4 Rate: Negative for bradycardia, tachycardic or other Rhythm: Negative for abnormal rhythm GI normal to inspection, nondistended, normoactive bowel sounds, non-distended and no masses; Negativefor non-tender GI Narrative: Tenderness to the left lower quadrant only. Inspection: Negative for abdominal distention Auscultation: normoactive bowel sounds Palpation: soft and tender; Negative for guarding, splenomegaly, mass or reboundtenderness present Back/Spine no CVA tenderness General Back: Negative for CVA tenderness Cervical Spine: Negative for cervical spine tenderness Thoracic Spine / Upper Back: Negative for thoracic spinal tenderness or paraspinal muscle tenderness Extremity normal to inspection General Extremety ED: Negative for edema or tenderness General Extremity: Negative for edema Neuro oriented x3 and CN's II-XII intact bilaterally Sensorium / Orientation: alert; Negative for orientation impaired, lethargic or stuporous Motor Exam: strength 5/5 throughout; Negative for general weakness Psych Appearance: Negative for unkempt Attitude: No agitated Mood & Affect: Negative for depressed, anxious or tearful Skin no rashes or lesions noted, no wounds and skin turgor normal General Skin Exam: elasticity normal; Negative for jaundice or pallor Lesions: No lesion noted Rashes: No rashes noted Trauma: Negative for abrasion Wounds: Negative for wounds noted MDM MDM MDM Narrative Medical decision making narrative: 84-year-old male known AAA left lower quadrant abdominal pain and outpatient CT done at the [facility] facility locally yesterday showed a AAA of 6 cm. Today's pain seems like left lower quadrant this may or may not be related to his AAA. Is previously been repaired with a stent. He did not need anything for pain or nausea. Screening labs and a repeat CT of the abdomen with IV contrast to be obtained. Currently he is very stable. Differential would include abdominal pain, diverticulitis, hernia which I do not think it is clinically, AAA or leak. Patient is a known AAA he had a prior endovascular repair that has a known endoleak that is slightly larger than it was before. There is no rupture. It is unknown at this time if his pain is from this or another cause. I spoke to [facility] auto launch 2 of their surgeons a general surgeon and a vascular surgeon discussed the case are reviewing his CTs and the patient will be sent there by helicopter to determine if this needs to be emergently repairedor if it can be delayed for further evaluation. Patient is currently very stable. He was given morphine and Zofran for pain. Patient and family are aware. History & Record Review Discussion w/independent historian: Patient Additional record(s) reviewed:: Prior inpatient record, Prior outpatient record,Prior ED visit and Prior labs Lab Data Attestation: I reviewed the patient's lab results. Lab results narrative: CBC shows a white count 5.1. H&H 12.4 and 38.5. Platelets 93,000. Electrolytes show gap of 13. BUN of 39 creatinine 1.43. Glucose 140. Liver enzymes normal. Lipase 38. UA negative. Labs: Laboratory Results - last 24 hr 11/28/24 11/28/24 17:55 18:30 WBC 5.1 RBC 4.15 L Hgb 12.4 L Hct 38.5 L MCV 92.8 MCH 29.9 MCHC 32.2 RDW Std Deviation 51.1 H RDW Coeff of Erma 14.9 H Plt Count 93 L MPV 10.4 Immature Gran % (Auto) 0.400 Neut % (Auto) 71.3 H Lymph % (Auto) 17.0 L [place] % (Auto) 9.1 Eos % (Auto) 1.6 Baso % (Auto) 0.6 Absolute Neuts (auto) 3.6 Absolute Lymphs (auto) 0.86 Nucleated RBC % 0 Differential Comment SEE COMMENT Platelet Estimate MOD DEC RBC Morphology N CHROM Anisocytosis RARE Macrocytosis RARE Sodium 137 Potassium 4.0 Chloride 99 Carbon Dioxide 24.5 Anion Gap 13 BUN 39 H Creatinine 1.43 H Estim Creat Clear Calc 37.20 L Est GFR (MDRD) Non-Af 48 L BUN/Creatinine Ratio 26.9 H Glucose 140 H Calcium 9.4 Total Bilirubin 0.47 AST 33 ALT 24 Alkaline Phosphatase 66 Total Protein 7.2 Albumin 4.0 Globulin 3.2 Albumin/Globulin Ratio 1.3 Lipase 38 Urine Color Yellow Urine Clarity Sl. Cloudy Urine pH 6.5 Ur Specific [place] 1.010 Urine Protein 15 H Urine Glucose (UA) Normal Urine Ketones Negative Urine Occult Blood Negative Urine Nitrite Negative Urine Bilirubin Negative Urine Urobilinogen Normal Ur Leukocyte Esterase Negative Urine RBC 0-5 SEEN Urine WBC 0-5 SEEN Ur Squamous Epith Cells 0-5 SEEN Urine Bacteria 0 SEEN Urine Mucus 0 SEEN Blood Type O NEGATIVE Antibody Screen NEGATIVE Radiography Diagnostic Testing: Clinical Impression(s) from Imaging Studies Abdomen/Pelvis CT 11/28/24 18:00 IMPRESSION: Interval increase in size of the abdominal aortic aneurysmal sac when compared to prior examination. Interval increase in contrast blush within the [place] aortic sac. 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 Recommend vascular surgery/IR consultation for repair of the endoleak. 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 If patient is complaining of upper abdominal pain, duodenal ulcer can not be ruled out. Patient may benefit from direct visualization. Progressive splenomegaly etiology to be determined. Correlate clinically for lymphoproliferative disease. Cystic mass within the body of the pancreas may suggest IPMN. Recommend GI consultation. Colonic diverticulosis without CT evidence of acute diverticulitis. Thickening of the gastroesophageal junction. Correlate for reflux disease. Other findings as above. One or more dose reduction techniques were used (e.g., Automated exposure control, adjustment of the mA and/or kV according to patient size, use of iterative reconstruction technique). Reading Location: [facility] Rhythm Strip Rhythm Strip: Sinus Rhythm Rate: 87 Ectopy: None EKG Initial EKG: Attestation: I personally reviewed and interpreted this EKG as follows: Interpretation: Sinus Rhythm and No Acute Injury Pattern Comments: Normal sinus rhythm rate 87 no acute signs of NV or ischemia. Discharge Plan Triage Chief Complaint: General Illness ED Provider: Nate Gray Dx/Rx/DC Orders Clinical Impression: Abdominal pain, AAA (abdominal aortic aneurysm), History of abdominal aortic aneurysm (AAA) repair Prescriptions: No Action cholecalciferol (vitamin D3) 2,000 unit capsule 2,000 unit PO DAILY multivitamin Tablet 1 tab PO DAILY losartan 100 mg tablet 100 mg PO DAILY ascorbic acid (vitamin C) 500 mg capsule 2,000 mg PO DAILY carvedilol 12.5 mg tablet 12.5 mg PO BID Qty: 180 0RF magnesium oxide 400 mg (241.3 mg magnesium) tablet 400 mg PO DAILY doxazosin 8 mg tablet 8 mg PO QHS hydralazine 100 mg tablet 100 mg PO TID aspirin 81 mg Tablet,Chewable 81 mg PO BREAKFAST 30 Days Qty: 30 3RF Rx Instructions: Discontinue if platelet count drops less than 50,000 or hemoglobin less than 8 g% furosemide 20 mg tablet 20 mg PO DAILY ezetimibe 10 mg tablet 10 mg PO DAILY Nexletol 180 mg tablet 180 mg PO DAILY tramadol 50 mg tablet 50 mg PO Q6H PRN (Reason: pain) 3 Days Qty: 5 0RF Primary Care Provider: Dallas Reed Referrals: Dallas Reed MD [Primary Care Provider] - Print Language: Ethiopian Disposition Disposition: Acute Care Hospital What to do if you have Problems For any increased pain, shortness of breath, bleeding, nausea or vomiting, chestpain, or any unexpected problems, contact your Primary Care Provider. Call [facility] ([phone]) or report tothe closest Emergency Room. Call 911 if necessary. 11/28/241919 Cosigner Signature (if applicable): CC: Dr. Dallas Reed MD ~ Signed [facility]03-11-2025 Radiology Diagnostic study note [facility] Imaging Services [address] [place] [address] Abdomen/Pelvis W IV Cont ONLY MR#: [id number] Acct: [id number] Name: LEANA CAMEJO Rep #: [id number] : 1940 M 84 From: Raegan Gupta MD PCP: Dr. Dallas Reed MD Status: P RE ER Study:Abdomen/Pelvis W IV Cont ONLY Date of E xam: 11/28/24 Exam# [id number] Ordering Dr: Mira Gray MD PROCEDURE: ABDOMEN/PELVIS W IV CONT ONLY REASON FOR EXAM: ABD PAIN W/ KNOWN AAA TECHNIQUE: Abdomen and pelvis CT with intravenous contrast. IV CONTRAST: COMPARISON: CT abdomen/pelvis dated 12/27/2023. FINDINGS: There are streaky changes at the lung bases. Calcified granulomas in the right lung base. There is no pleural or pericardial effusion. There is no free air within the abdomen or pelvis. There are scattered granulomas within the liver. There is tiny hypodense structures present within the liver, which may represent cysts, but incompletely characterized. The spleen has increased in size since prior examination and measures up to 17.9 cm in craniocaudal dimension (previously measured up to 16 cm on 12/27/2023). The adrenals arewithin normal limits. The pancreas is moderately atrophic. 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 This was present on prior examination the kidneys are without evidence of hydronephrosis or obstructive uropathy. Urinary bladder is distended. A large posteriorright urinary bladder diverticulum is present, similar to prior examination. Extensive sigmoid diverticulosis is present. No definite CT evidence for acute diverticulitis. There is no bowel obstruction identified. There is thickening of the GE junction. Duodenal diverticulum is noted. Correlate clinically for ischial reflux disease. The patient has undergone repair of abdominal aortic aneurysm. The aneurysmal sac measures up to 6.1 (AP) by 5.8 (TV) cm. This previously measured up to 5.9 (AP) by 5.5 (TV) cm when measured by this seen observer. There are several areas of abnormal enhancement within the sac of the [place] aorta which are consistent with endoleak arising from likely the MUNDO and posterior lumbar arteries. The endoleak appears to be increased when compared to prior examination. 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 Status post right total hip arthroplasty. No evidence of fracture or acute osseous abnormalities identified. CT/Abdomen/Pelvis W IV Cont ONLY IMPRESSION: Interval increase in size of the abdominal aortic aneurysmal sac when compared to prior examination. Interval increase in contrast blush within the [place] aortic sac. 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 Recommend vascular surgery/IR consultation for repair of the endoleak. 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 If patient is complaining of upper abdominal pain, duodenal ulcer can not be ruled out. Patient may benefit from direct visualization. Progressive splenomegaly etiology to be determined. Correlate clinically for lymphoproliferative disease. Cystic mass within the body of the pancreas may suggest IPMN. Recommend GI consultation. Colonic diverticulosis without CT evidence of acute diverticulitis. Thickening of the gastroesophageal junction. Correlate for reflux disease. Other findings as above. One or more dose reduction techniques were used (e.g., Automated exposure control, adjustment of the mA and/or kV according to patient size, use of iterative reconstruction technique). Reading Location: [id number] CC: Dr. Nate Gray MD; Dr. Dallas Reed MD ~ Disc Recordist: Signed [facility]03-11-2025 Telephone encounter Note* Telephone Encounter - Sheeba Castellano MA - 11/28/2024 5:22 PM EDT Nurse called back line and I spoke to another provider Suasn Gates MANAGER [employer]NA[employer]EMENT since pcp/MANAGER PROJECT MANAGEMENT were out. ROSSI Gates advised patient needs to go to ER due to pain and change in aortic size. Did call patient who advised will go to [facility] ER and aware of results from radiologist below. Called [facility] ER and spoke to Dr. Gray and faxed CT/office note/Radiologist report to [phone]. Sheeba Castellano MA [facility]03-11-2025 Miscellaneous Notes* Telephone Encounter - Sheeba Castellano MA - 11/28/2024 5:22 PM EDT Nurse called back line and I spoke to another provider Susan Gates MANAGER PROJECT MANAGEMENT since pcp/MANAGER PROJECT MANAGEMENT were out. ROSSI Gates advised patient needs to go to ER due to pain and change in aortic size. Did call patient who advised will go to [facility] ER and aware of results from radiologist below. Called [facility] ER and spoke to Dr. Gray and faxed CT/office note/Radiologist report to [phone]. Sheeba Castellano MA * Telephone Encounter - Venessa Grant RN - 11/28/2024 5:08 PM EDT Received call from Dr. Ga, F Radiologist regarding pt's CT ABD/PEL results stating per result note, there has been interval enlargement of the [place] lumen consistent with a hemodynamically significant leak'. Dr. Ga states he is unsure if this is cause for patient's pain but he is asking provider to address this and contact patient. Venessa Grant RN [facility] Telephone encounter Note * Telephone Encounter - Venessa Grant RN - 11/28/2024 5:08 PM EDT Received call from Dr. Ga, F Radiologist regarding pt's CT ABD/PEL results stating per result note, there has been interval enlargement of the [place] lumen consistent with a hemodynamically significant leak'. Dr. Ga states he is unsure if this is cause for patient's pain but he is asking provider to address this and contact patient. Venessa Grant RN [facility]03-11-2025 Discharge summary Author Nate Gray [facility] Note Date/Time November 28, 2024 7:2 0pm [facility] Medical Records Department [address] [place] [id number] Emergency Department Summary 11/28/24 MR#: [id number] Acct: [id number] Name: LEANA CAMEJO Rep #:[id number] : 1940 84 From: Nate Gray MD PCP: Dr. Dallas Reed MD Status:P RE ER Location: ED HPI History of Present Illness Chief Complaint: General Illness Detail of Chief Complaint: Left lower quadrant abdominal pain for 5 days. Onset/Context/Timing Current Severity: Mild Maximum Severity: Mild Narrative Narrative: 84-year-old male known history of AAA with prior stent about a year ago. Patient had a prior TIA. States that he had a long 1 on Wednesday had left lower quadrant abdominal pain which she has had for 5 days and was seen by [facility] physician's office yesterday. They did a CAT scan. CAT scan shows the AAA to be 6 cm. And his doctor's office going to get him in 1 to be seen in the emergency department. He denies any anterior abdominal pain except the left lower quadrant. He denies any vomiting or diarrhea. He denies any dysuria. Denies any fever or back pain. 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 Hyperlipidemia Diverticulosis Pre-operative cardiovascular examination Anemia 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, NYHA class 2 RSV (respiratory syncytial virus pneumonia) Shortness of breath Cough productive of purulent sputum Home Medications ?Medication ?Instructions ?Recorded ?Last Taken ?Type losartan 100 mg tablet 100 mg PO DAILY BP 05/17/19 08/31/24 05:30 History cholecalciferol (vitamin D3) 50 2,000 unit PO DAILY rich pplement 05/18/19 05/23/24 History mcg (2,000 unit) capsule multivitamin 1 tab PO DAILY supplement 05/21/24 History ascorbic acid (vitamin C) 500 mg 2,000 mg PO DAILY sup plement 02/14/20 05/23/24 History capsule carvedilol 12.5 mg tablet 12.5 mg PO BID heart #180 ta bs 11/12/21 08/31/24 Rx doxazosin 8 mg tablet 8 mg PO QHS prostate 4 05/22/24 History hydralazine 100 mg tablet 100 mg PO TID blood pressure 05/23/24 08/31/24 History magnesium oxide 400 mg (241.3 mg 400 mg PO DAILY suppl ement 05/23/24 05/21/24 History magnesium) tablet aspirin 81 mg chewable tablet 81 mg PO BREAKFAST 30 da ys #30 tabs 05/24/24 08/16/24 Rx Held on 08/31/24. Instructions: Resume on 09/01/24. bempedoic acid 180 mg tablet 180 mg PO DAILY 07/11/24 Unknown History (Nexletol) ezetimibe 10 mg tablet 10 mg PO DAILY 07/11/24 Unkn own History furosemide 20 mg tablet 20 mg PO DAILY 07/11/24 Unkn own History tramadol 50 mg tablet 50 mg PO Q6H PRN pain 3 days #5 08/31/24 Unknown Rx tabs Allergy/AdvReac Type Severity Reaction Status Date / Time lisinopril Allergy Intermediate Rash Verified 11/28/24 17:53 atorvastatin calcium (From Allergy Other Verified 11/28/24 17:53 Lipitor) clonidine Allergy Unknown Verified 11/28/24 17:53 rosuvastatin calcium (From Allergy Other Verified 11/28/24 17:53 Crestor) Emakjgp-UUK-KbN Reductase Allergy Other Verified 11/28/24 17:53 Inhibitor (Lfibuuu-Mmm-Cyd Reductase Inhibitor) Family History Father Lung cancer Liver cancer Mother Oral cancer Surgical History S/P spigelian hernia repair, follow-up exam S/P AAA repair History of right-sided carotid endarterectomy Hx of cataract surgery Hx of appendectomy History of tonsillectomy History of back surgery History of colonoscopy History of blepharoplasty History of inguinal hernia repair History of umbilical hernia repair 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 Denies fever. Denies vomiting or diarrhea. Denies dysuria. Constitutional Constitutional ED: Denies chills or fever(s) Eyes Eyes: Denies blurry vision ENT ENT ED: Denies ear pain Cardiovascular Cardiovascular: Denies chest pain Respiratory/Chest Respiratory/Chest: Denies cough or dyspnea Gastrointestinal Gastrointestinal: Reports abdominal pain; Denies constipation, diarrhea or vomiting Genitourinary Genitourinary ED: Denies dysuria or hematuria Musculoskeletal Musculoskeletal: Denies arthralgias or back pain Integumentary Denies abscess Neurologic Neurologic: Denies headache(s) Psychiatric Psychiatric: Denies anxiety Endocrine Endocrinology: Denies cold intolerance Hematologic/Lymphatic Hematologic/Lymphatic: Reports none Allergic/Immunologic Allergic/Immunologic ED: Denies mouth swelling, tongue swelling or urticaria EXAM Physical Exam Narrative Exam Narrative: 84-year-old male vital signs are stable afebrile. Initial blood pressure 130/67. He does not look septic toxic or any distress. He sitting upright in bed. Family members at bedside. H EENT exam pupils round react to light. Mytrex members. Neck nontender no JVD. Lungs clear to auscultation bilaterally. Heart regular rhythm rate about 87 no murmur. Chest wall ribs nontender. Abdomen soft, nondistended, normal bowel sounds without peritoneal signs. He has mild reproducible tenderness in the left lower quadrant only. There is no pulsatile mass. Right upper and right lower quadrants are unremarkable. He is equal and symmetrical femoral pulses. He has a well-healedsurgical scar from the left lower abdominal hernia. There is no current herniaspresent. Moving all 4 extremities. Nontender no edema. Normal strength. He is awake and alert. No focal motor deficits. Back is nontender. Const Vital Signs: 11/28/24 17:53 11/28/24 18:15 11/28/24 18:47 Temperature 98.2 F Temperature Source Oral Pulse Rate 87 81 Respiratory Rate 22 H 81 H Respiratory Effort Normal Non-Labored Respiratory Pattern Normal Blood Pressure 130/67 H 136/72 H Blood Pressure Mean 88 93 Pulse Ox 95 94 Oxygen Delivery Method Room Air Room Air Positive well nourished and well developed; Negative for obese, cachectic, contractures or unkempt General Appearance ED: well developed and NAD; Negative for unkempt, cachectic, contractures, cyanotic, diaphoretic or pallor Nutritional Appearance: Negative for cachectic or obese HEENT Reports moist mucous membranes Negative for trauma or tenderness Eyes PERRL and EOMs intact bilaterally General Eye ED: Negative for pale conjunctiva or scleral icterus Neck no lymphadenopathy, supple and no JVD General: Negative for tenderness Chest Wall inspection of chest normal and palpation of chest normal Resp normal respiratory effort and clear to auscultation bilaterally Effort and Inspection: Negative for retractions Auscultation: Negative for rales, rhonchi, wheezes or diminished lung sounds Cardio regular rate, regular rhythm, S1 normal heart sound, S2 normal heart sound and no murmurs Palpation: Negative for palpable S3 or palpable S4 Rate: Negative for bradycardia, tachycardic or other Rhythm: Negative for abnormal rhythm GI normal to inspection, nondistended, normoactive bowel sounds, non-distended and no masses; Negative for non-tender GI Narrative: Tenderness to the left lower quadrant only. Inspection: Negative for abdominal distention Auscultation: normoactive bowel sounds Palpation: soft and tender; Negative for guarding, splenomegaly, mass or reboundtenderness present Back/Spine no CVA tenderness General Back: Negative for CVA tenderness Cervical Spine: Negative for cervical spine tenderness Thoracic Spine / Upper Back: Negative for thoracic spinal tenderness or paraspinal muscle tenderness Extremity normal to inspection General Extremety ED: Negative for edema or tenderness General Extremity: Negative for edema Neuro oriented x3 and CN's II-XII intact bilaterally Sensorium / Orientation: alert; Negative for orientation impaired, lethargic or stuporous Motor Exam: strength 5/5 throughout; Negative for general weakness Psych Appearance: Negative for unkempt Attitude: No agitated Mood & Affect: Negative for depressed, anxious or tearful Skin no rashes or lesions noted, no wounds and skin turgor normal General Skin Exam: elasticity normal; Negative for jaundice or pallor Lesions: No lesion noted Rashes: No rashes noted Trauma: Negative for abrasion Wounds: Negative for wounds noted MDM MDM MDM Narrative Medical decision making narrative: 84-year-old male known AAA left lower quadrant abdominal pain and outpatient CT done at the [facility] facility locally yesterday showed a AAA of 6 cm. Today's pain seems like left lower quadrant this may or may not be related to his AAA. Is previously been repaired with a stent. He did not need anything for pain or nausea. Screening labs and a repeat CT of the abdomen with IV contrast to be obtained. Currently he is very stable. Differential would include abdominal pain, diverticulitis, hernia which I do not think it is clinically, AAA or leak. Patient is a known AAA he had a prior endovascular repair that has a known endoleak that is slightly larger than it was before. There is no rupture. It is unknown at this time if his pain is from this or another cause. I spoke to [facility] launch 2 of their surgeons a general surgeon and a vascular surgeon discussed the case are reviewing his CTs and the patient will be sent there by helicopter to determine if this needs to be emergently repairedor if it can be delayed for further evaluation. Patient is currently very stable. He was given morphine and Zofran for pain. Patient and family are aware. History & Record Review Discussion w/independent historian: Patient Additional record(s) reviewed:: Prior inpatient record, Prior outpatient record,Prior ED visit and Prior labs Lab Data Attestation: I reviewed the patient's lab results. Lab results narrative: CBC shows a white count 5.1. H&H 12.4 and 38.5. Platelets 93,000. Electrolytes show gap of 13. BUN of 39 creatinine 1.43. Glucose 140. Liver enzymes normal. Lipase 38. UA negative. Labs: Laboratory Results - last 24 hr 11/28/24 11/28/24 17:55 18:30 WBC 5.1 RBC 4.15 L Hgb 12.4 L Hct 38.5 L MCV 92.8 MCH 29.9 MCHC 32.2 RDW Std Deviation 51.1 H RDW Coeff of Erma 14.9 H Plt Count 93 L MPV 10.4 Immature Gran % (Auto) 0.400 Neut % (Auto) 71.3 H Lymph % (Auto) 17.0 L [place] % (Auto) 9.1 Eos % (Auto) 1.6 Baso % (Auto) 0.6 Absolute Neuts (auto) 3.6 Absolute Lymphs (auto) 0.86 Nucleated RBC % 0 Differential Comment SEE COMMENT Platelet Estimate MOD DEC RBC Morphology N CHROM Anisocytosis RARE Macrocytosis RARE Sodium 137 Potassium 4.0 Chloride 99 Carbon Dioxide 24.5 Anion Gap 13 BUN 39 H Creatinine 1.43 H Estim Creat Clear Calc 37.20 L Est GFR (MDRD) Non-Af 48 L BUN/Creatinine Ratio 26.9 H Glucose 140 H Calcium 9.4 Total Bilirubin 0.47 AST 33 ALT 24 Alkaline Phosphatase 66 Total Protein 7.2 Albumin 4.0 Globulin 3.2 Albumin/Globulin Ratio 1.3 Lipase 38 Urine Color Yellow Urine Clarity Sl. Cloudy Urine pH 6.5 Ur Specific [place] 1.010 Urine Protein 15 H Urine Glucose (UA) Normal Urine Ketones Negative Urine Occult Blood Negative Urine Nitrite Negative Urine Bilirubin Negative Urine Urobilinogen Normal Ur Leukocyte Esterase Negative Urine RBC 0-5 SEEN Urine WBC 0-5 SEEN Ur Squamous Epith Cells 0-5 SEEN Urine Bacteria 0 SEEN Urine Mucus 0 SEEN Blood Type O NEGATIVE Antibody Screen NEGATIVE Radiography Diagnostic Testing: Clinical Impression(s) from Imaging Studies Abdomen/Pelvis CT 11/28/24 18:00 IMPRESSION: Interval increase in size of the abdominal aortic aneurysmal sac when compared to prior examination. Interval increase in contrast blush within the [place] aortic sac. 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 Recommend vascular surgery/IR consultation for repair of the endoleak. 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 If patient is complaining of upper abdominal pain, duodenal ulcer can not be ruled out. Patient may benefit from direct visualization. Progressive splenomegaly etiology to be determined. Correlate clinically for lymphoproliferative disease. Cystic mass within the body of the pancreas may suggest IPMN. Recommend GI consultation. Colonic diverticulosis without CT evidence of acute diverticulitis. Thickening of the gastroesophageal junction. Correlate for reflux disease. Other findings as above. One or more dose reduction techniques were used (e.g., Automated exposure control, adjustment of the mA and/or kV according to patient size, use of iterative reconstruction technique). Reading Location: [facility] Rhythm Strip Rhythm Strip: Sinus Rhythm Rate: 87 Ectopy: None EKG Initial EKG: Attestation: I personally reviewed and interpreted this EKG as follows: Interpretation: Sinus Rhythm and No Acute Injury Pattern Comments: Normal sinus rhythm rate 87 no acute signs of NV or ischemia. Discharge Plan Triage Chief Complaint: General Illness ED Provider: Nate Gray Dx/Rx/DC Orders Clinical Impression: Abdominal pain, AAA (abdominal aortic aneurysm), History of abdominal aortic aneurysm (AAA) repair Prescriptions: No Action cholecalciferol (vitamin D3) 2,000 unit capsule 2,000 unit PO DAILY multivitamin Tablet 1 tab PO DAILY losartan 100 mg tablet 100 mg PO DAILY ascorbic acid (vitamin C) 500 mg capsule 2,000 mg PO DAILY carvedilol 12.5 mg tablet 12.5 mg PO BID Qty: 180 0RF magnesium oxide 400 mg (241.3 mg magnesium) tablet 400 mg PO DAILY doxazosin 8 mg tablet 8 mg PO QHS hydralazine 100 mg tablet 100 mg PO TID aspirin 81 mg Tablet,Chewable 81 mg PO BREAKFAST 30 Days Qty: 30 3RF Rx Instructions: Discontinue if platelet count drops less than 50,000 or hemoglobin less than 8 g% furosemide 20 mg tablet 20 mg PO DAILY ezetimibe 10 mg tablet 10 mg PO DAILY Nexletol 180 mg tablet 180 mg PO DAILY tramadol 50 mg tablet 50 mg PO Q6H PRN (Reason: pain) 3 Days Qty: 5 0RF Primary Care Provider: Dallas Reed Referrals: Dallas Reed MD [Primary Care Provider] - Print Language: Ethiopian Disposition Disposition: Acute Care Hospital What to do if you have Problems For any increased pain, shortness of breath, bleeding, nausea or vomiting, chestpain, or any unexpected problems, contact your Primary Care Provider. Call [facility] ([phone]) or report to the closest Emergency Room. Call 911 if necessary. 11/28/24 1920 <Electronically signed by Nate Gray MD> Cosigner Signature (if applicable): CC: Dr. Dallas Reed MD ~ Signed [facility] Work Phone: [phone] Instructions* Patient Instructions* Darya Borden APRN.SHAWNA - 11/27/2024 11:27 AM EDT Go to ER or call 911 if you develop severe abdominal pain, vomiting that won't stop, high fever, rigid/hard abdomen. documented in this encounterV[facility]03-10-2025 Note[facility] [place]-2025 Note[facility] [place]-2025 History of Present illness Narrative* Darya Borden APRN.SHAWNA - 11/27/2024 10:54 AM EDT CC Patient presents with: Abdominal Pain: LLQ pain x 4 days HPI Leana Camejo is a 84 year old male who presents with abdominal pain for x four days. . Location: LLQ without radiation Described as: constant dull ache but sharp with certain aggravating factors Aggravating factors: laying on affected side, coughing, sneezing Alleviating factors: none Associated symptoms: none Denies: blood in stools or black stools, change in bowel habit, diarrhea, rectal bleeding, heart burn, bloating, nausea, vomiting, constipation, history of kidney stones GI history: diverticulosis. Surgeries: spigelian hernia repair 08/31/24 without complication, inguinal hernia repair 2014. Endoscopy: colonoscopy 01/15/23 indicating diverticulosis and internal hemorrhoids. Repeat screening colonoscopy was not recommended. Review of Systems Constitutional: Positive for fatigue. Negative for chills, diaphoresis, fever and unexpected weightchange. Respiratory: Negative for cough, shortness of breath and wheezing. Cardiovascular: Negative for chest pain, palpitations and leg swelling. Genitourinary: Negative for decreased urine volume, difficulty urinating, dysuria, frequency, hematuria and urgency. Musculoskeletal: Negative for back pain. Neurological: Negative for dizziness, syncope, weakness and light-headedness. PAST MEDICAL HISTORY Diagnosis Date Abdominal aortic aneurysm (AAA) without rupture ([facility]) 08/26/201708/2017: 3.7 cm Anemia Chronic diastolic CHF (congestive heart failure) ([facility]) 10/20/[address] Montes CKD (chronic kidney disease) stage 3, GFR 30-59 ml/min ([facility]) 02/20/2014 Collagenous colitis 02/04/2023 COVID-19 09/12/2021 DDD (degenerative disc disease), lumbar 08/26/2017 Diarrhea Diverticulosis of colon (without mention of hemorrhage) Hematoma of right iliopsoas muscle 06/21/2019 Internal hemorrhoids without mention of complication Lumbar radiculopathy 08/26/2017 Mixed hyperlipidemia Hyperlipidemia S/P carotid endarterectomy right 01/20/2021 Unspecified essential hypertension Essential hypertension PAST SURGICAL HISTORY Procedure Laterality Date ARTHRP ACETBLR/PROX FEM PROSTC AGRFT/ALGRFT 08/02/2006 Hip replacement, total, Right BLEPHAROPLASTY, UPPER EYELID 2013 CAROTID ENDARTERECTOMY Right 01/20/2021 w/ bovine patch angioplasty COLONOSCOPY - DIAGNOSTIC 01/15/2023 collagenous colitis, int hemorrhoids COLONOSCOPY FLX DX W/COLLJ SPEC WHEN PFRMD 03/18/2001 anemia COLONOSCOPY FLX DX W/COLLJ SPEC WHEN PFRMD 05/13/2010 repeat 10 yrs COLONOSCOPY FLX DX W/COLLJ SPEC WHEN PFRMD 05/21/2020 Colonoscopy ENTEROLSS FRING INTSTINAL ADHESION SPX 07/29/2015 ESOPHAGOGASTRODUODENOSCOPY TRANSORAL DIAGNOSTIC 03/18/2001 anemia ESOPHAGOGASTRODUODENOSCOPY TRANSORAL DIAGNOSTIC 05/21/2020 EGD I&D HEMATOMA Right 07/19/2019 CT guided aspiration, iliopsoas hematoma IR AAA ENDO REPAIR 2 LIMB 04/07/2023 AAA stent graft repair, [facility] LAPAROSCOPY SURG RPR INITIAL INGUINAL HERNIA 07/29/2015 LAPS RPR RECURRENT INCISIONAL HERNIA REDUCIBLE 07/29/2015 PAST SURGICAL HISTORY OF 09/09/2015 left total knee arthroplasty PAST SURGICAL HISTORY OF 09/15/2017 micro-disectomy L4-L5, with microcompression bilaterally. PAST SURGICAL HISTORY OF Right 12/16/2018 Repair of complex lateral meniscus tear, Right knee REPAIR UMBILICAL HERNIA 1980 Dr. Henry STRESS TEST 09/03/2017 normal ALLERGIES Clonidine, Crestor [Rosuvastatin Calcium], Lipitor [Atorvastatin Calcium], Lisinopril, and Statins [Lamkfcf-Jlh-Tmc Reductase Inhibitors] MEDICATIONS hydrALAZINE (APRESOLINE) 100 mg tablet Take 1 tablet by mouth three times a day. levothyroxine (SYNTHROID) 25 mcg tablet Take 1 tablet by mouth daily before breakfast. bempedoic acid (NEXLETOL) 180 mg tablet Take 1 tablet (180 mg) by mouth once daily. fluticasone (FLONASE) 50 mcg/actuation nasal spray Use 1 [place] in each nostril daily at bedtime. aspirin 81 mg chewable tablet Take 1 tablet by mouth once daily. furosemide (LASIX) 20 mg tablet Take 1 tablet by mouth once daily. losartan (COZAAR) 100 mg tablet Take 1 tablet by mouth once daily. ezetimibe (ZETIA) 10 mg tablet Take 1 tablet by mouth once daily. carvedilol (COREG) 12.5 mg tablet Take 1 tablet by mouth two times a day with meals. ascorbic acid, vitamin C, 500 mg cap DAILY TURMERIC ORAL Take by mouth. ubidecarenone/vitamin E mixed (COQ10 SG 100 ORAL) Take by mouth. levOCARNitine (L-CARNITINE) 500 mg capsule Take 500 mg by mouth. Zinc Gluconate 50 mg tablet Take 50 mg by mouth once daily. doxazosin (CARDURA) 8 mg tablet Take 1 tablet by mouth daily at bedtime. triamcinolone acetonide (KENALOG) 0.1 % cream glucosamine/chondr rich A sod (OSTEO BI-FLEX ORAL) Take 2 tablets by mouth once daily. Magnesium 200 mg tab Take 400 mg by mouth once daily. Cholecalciferol, Vitamin D3, 25 mcg (1,000 unit) cap Take 5,000 Units by mouth once daily. multivit-minerals/FA/lycopene (ONE-A-DAY MEN'S ORAL) Take 1 tablet by mouth once daily. vitamin b complex (B COMPLETE) tab Take 1 tablet by mouth once daily. FAMILY HISTORY Problem Relation Age of Onset Cancer Mother oral Cancer Father Lymphnode, Lung, Liver other (brain tumor) Other Social History Tobacco Use Smoking status: Former Current packs/day: 0.00 Average packs/day: 1 pack/day for 2.0 years (2.0 ttl pk-yrs) Types: Cigarettes Start date: 09/20/1962 Quit date: 09/20/1964 Years since quittin.2 Smokeless tobacco: Never Vaping Use Vaping status: Never Used Substance Use Topics Alcohol use: No Drug use: No BP 122/70 Pulse 70 Temp 36.5 C (97.7 F) Resp 14 Wt 67.6 kg (149 lb 0.5 oz) SpO2 98% BMI22.59 kg/m Physical Exam Vitals reviewed. Constitutional: General: He is not in acute distress. Appearance: Normal appearance. He is not ill-appearing or toxic-appearing. Cardiovascular: Rate and Rhythm: Normal rate and regular rhythm. Heart sounds: No murmur heard. Pulmonary: Effort: Pulmonary effort is normal. Breath sounds: Normal breath sounds. No wheezing, rhonchi or rales. Abdominal: General: Bowel sounds are normal. There is no distension. Palpations: There is no hepatomegaly, splenomegaly or mass. Tenderness: There is abdominal tenderness (LLQ, moderate). There is no right CVA tenderness, left CVA tenderness, guarding or rebound. Hernia: No hernia is present. Skin: General: Skin is warm and dry. Neurological: Mental Status: He is alert. DATA REVIEWED: Most recent labs, imaging and colonoscopy ASSESSMENT/PLAN: 1. Left lower quadrant abdominal pain - ICD9: 789.04, ICD10: R10.32 Etiology unclear Differential Diagnosis includes Constipation, Diverticulitis, Kidney stones/colic, Cystitis, and hernia - UA DIP, URINE (POC) today in office showing only protein - send BACTERIAL CULTURE, URINE Stat work-up with: - BASIC METABOLIC PANEL - COMPLETE BLOOD COUNT - CT ABD/PEL W IVCON - IV CONTRAST (RADIOLOGY PROCEDURE) - NOT ON MAR - ENTERIC CONTRAST (RADIOLOGY PROCEDURE) - NOT ON MAR Follow-up pending results Prescription instructions reviewed with patient as applicable. Potential red flag symptoms discussed with the patient. Reviewed appropriate action plan to take if red flag symptoms occur. Patient agreeable to treatment plan. Darya Borden APRN.CNP Medical Decision Making: Problems: Moderate: Acute illness with systemic symptoms Data: Unique test result(s) reviewed: 2 Unique test(s) ordered: 2 Risk: Moderate: Moderate risk from testing/treatment Medical Decision Making Level: 4 - Moderate documented in this encounterV[facility]03-10-2025 NoteSelect [facility] [place]03-10-2025 History of Present illness Narrative* Gavin Rivero APRN.SHAWNA - 11/27/2024 9:46 AM EDT Nontoxic-appearing 84-year-old male presents urgent care chief complaint abdominal pain. Duration of symptoms 2 days. Associated symptoms left-sided abdominal pain. States aching-like discomfort. OTCmedications none. States this started after eating at [employer] Wednesday night. Presents today for evaluation. States pain is persistent. No vomiting. No change in bowel or bladder habits. No fevers. Appointment today at 11 AM with PCP Gavin Rivero APRN.RIDDLER OPERATOR documented in this encounterVeterans Health Administration03-07-2025 NoteSelect [facility] [place]03-07-2025 History of Present illness Narrative* Ramon Lee, PT - 11/24/2024 7:44 AM EST Episode Visit Count: 2 Therapist That Will Accept/Oversee The Plan Of Care: Ramon Lee, PT. Start of Care Date: 11/21/24 Onset Date: 11/04/24 Plan of Care Certification Date: 11/21/24 Next Certification Due Date: 12/29/24 Patient Identified by Name and Date of : Yes REHABILITATION AND SPORTS THERAPY PHYSICAL THERAPY TREATMENT NOTE ASSESSMENT: Leana Camejo tolerated the session with fatigue and expected muscle soreness. He demonstrated difficulty with R Single Leg Step-Ups compared to LLE. The patient will continue to benefitfrom ongoing skilled physical therapy to progress toward set goals. PLAN FOR NEXT VISIT: Dynamic Balance; LAQ, SLR, Hs Curls. SUBJECTIVE: No new falls. States STS with push off leg was hard for him. States R Leg is not as near as strong as the Left. Pain: Pain Pain Level: 0 OBJECTIVE MEASURES WITH LEVEL OF FUNCTION: Light medial collapse with R lower extremity when rising from a chair. Vitals BP: 144/74 Pulse: 90 RPE / Modified SHADE Scale: 8 (States sci-fit was an 8.) Additional Vitals: Yes Intra Assessment 1: BP Intra 1, Heart Rate Intra 1 (Following rest from sci-fit.) Intra Heart Rate 1: 76 Intra BP 1: 110/66 Intra BP Position 1: Sitting TREATMENT: Therapeutic Exercise: 1: Sci-Fit for Warmup: 4 Min, Level 2.5. Fatigued by this, states RPE of 8. 2: STS with reese use of hands on thighs: 2x6., 20-inch table. (Discussed using light trunk momentum to assist. Discussed use of pillow on chair at home for higher seat.) 3: STS with b hands for chair: 2x10. 4: Alt. Hip ABD: 3x8 each. 5: Alt. Hip Marchinx10 each. 6: 6 FWD [place]: 1x8 each. 7: Tandem Stance Balance on Ground, EO with intermittent touch on // bars as needed: 6x15 each legback. 8: Discussed proper rest breaks inbetween sets/reps at home on HEP. Skilled Intervention: Patient was educated in proper exercise technique and purpose for exercises. Skilled judgment was used in selection of appropriate interventions. Correct performance of therapeutic exercises was facilitated with verbal and tactile cuing. Ensured patient safety with use of gait belt during tandem stance. Billing Therapeutic Exercise Treatment Minutes: 39 Skilled Treatment Time Minutes (timed and untimed codes): 39 Total Session Time (minutes): 39 Session Start Time : 743 Session Stop Time : 822 Ramon Lee PT documented in this encounterVeterans Health Administration03-04-2025 History of Present illness Narrative* Ramon Lee, PT - 11/21/2024 11:26 AM EST Program_ID:[id number] Access Code: [email or web address] URL: [email or web address] Date: 11-21-2024 Prepared By: Ramon Lee Program Notes Exercises - Sit to Stand with Armchair - 2 x daily - 7 x weekly - 2-3 sets - 10 reps - Sit to Stand with Hands on Knees - 2 x daily - 7 x weekly - 2-3 sets - 5-6 reps - Standing Hip Abduction with Counter Support - 2 x daily - 7 x weekly - 2-3 sets - 8-10 reps - Standing [place] with Counter Support - 2 x daily - 7 x weekly - 2-3 sets - 10-15 reps * Ramon Lee, PT - 11/21/2024 10:46 AM EST Episode Visit Count: 1 Therapist That Will Accept/Oversee The Plan Of Care: Ramon Lee PT. Start of Care Date: 11/21/24 Onset Date: 11/04/24 Plan of Care Certification Date: 11/21/24 Next Certification Due Date: 12/29/24 Patient Identified by Name and Date of : Yes REHABILITATION AND SPORTS THERAPY PHYSICAL THERAPY EVALUATION PLAN OF CARE: Assessment: Leana Camejo presents with chief complaint of falls and deconditioning that interferes with walking in the community, stair negotiation, rising from a chair, heavy exertion, physical activities .The patient presents with impairments in ADL's, balance, independence in exercise, overallfunction, strength, symptom management, and functional performance testing indicates risk for falls. PROMIS (Patient-Reported Outcomes Measurement Information System) scores were reviewed and identified as a rehabilitation concern. Prognosis for therapy is Good due to: current objective clinical presentation, good overall health status .The patient will benefit from skilled therapy services to meet the goals established for this plan of care as noted below. Assessment Fall Risk : Active at risk Goals for Episode of Care: established 11/21/24 Patient will report no falls. [place] in home exercise program. Patient will Improve Timed Up and Go to <9 seconds to demonstrate decreased risk of falling. Patient will improve 5 time sit to stand to demonstrate improvement in functional lower extremity strength. Patient will increase balance to >5seconds for tandem stance & >2.5 seconds for bilateralsingle limb stance. Patient to demonstrate appropriate balance strategies to reduce risk for falls. Improve B Hip Flexion & ABD strength to 5/5 MMT Improve performance on 30-sec chair stand test to >11 reps to demo decreased risk for falls. Patient Goals: Improve function. Time Frame for Goals and Treatment : 01/16/25 Planned Interventions, Frequency, and Duration: Current Frequency: 2x/week Duration: 4 weeks Total Number of Visits Planned: 8 Planned Treatment Interventions: Therapeutic exercise (46287), Neuromuscular re- education (77798), Manual therapy (89057), Therapeutic activities (92608), Self- intermediate management (57250), Patient/Family/Caregiver Education PLAN FOR NEXT VISIT: Challenge Balance & B LE Strength; Dynamic Balance Activities. Patient demonstrates good understanding of plan of care and treatment. The above goals and plan of care were discussed and agreed upon by patient/family. SUBJECTIVE: Fall from stepping up on a step at his home (used R Leg), fell backwards -hit butt, back and then his head per report. Subsequent Abrasion/contusion on head. Went to [facility] care three days later andthen followed up with PCP that sent him here. States it was snow/sleeting however he thinks he has loss muscle and is weaker than normal. Struggles with activities without using his hands for assistance. Has carpets/rugs throughout the home and states he has tripped on them. Has only had to use AD for after surgeries. Patient Goals: Improve function. Functional Limitations: walking in the community, stair negotiation, rising from a chair, heavy exertion, physical activities Prior Level of Function: Independent without limitations Relevant History Past Relevant Medical Conditions: (See Chart for PMH) Past Relevant Surgical Conditions: Total Knee Replacement-Left, Total Hip Replacement-Right, Comments Relevant Surgical Conditions Comments: 2 Past Back Surgeries; R Hip (20-30 years ago); L Knee (15+ years ago), R Knee Scope (15-20 years). 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 Montes CKD (chronic kidney disease) stage 3, GFR 30-59 ml/min ([facility]) 02/20/2014 Collagenous colitis 02/04/2023 COVID-19 09/12/2021 DDD (degenerative disc disease), lumbar 08/26/2017 Diarrhea Diverticulosis of colon (without mention of hemorrhage) Hematoma of right iliopsoas muscle 06/21/2019 Internal hemorrhoids without mention of complication Lumbar radiculopathy 08/26/2017 Mixed hyperlipidemia Hyperlipidemia S/P carotid endarterectomy right 01/20/2021 Unspecified essential hypertension Essential hypertension Pain: Pain Pain Level: 0 PROMIS Scales 11/16/2024 Higher is Better Self-Eff Symptom - T Score 41 (Average) Self-Eff Symptom - Percentile 18 Mobility - T Score 35 (moderate dysfunction) Mobility - Percentile 7 T-scores: mean of general population = 50. 5 points is clinically meaningfully difference Percentiles provide an indication of how the patient's score ranks in relation to the general population. Higher percentile rankings indicate better function/quality of life. 50th percentile is the average of the general population and indicates half of respondents had a worse score. OBJECTIVE MEASURES WITH LEVEL OF FUNCTION: LE Strength R LE Strength: Grossly 5/5 L LE Strength: Grossly 5/5 R Hip Extension: 4+/5 R Hip Flexion (L2): 4/5 R Hip ABduction: 4/5 L Hip Extension: 4+/5 L Hip Flexion (L2): 4/5 L Hip ABduction: 4/5 Mobility Rolling: Independent Supine To Sit: Independent Sit to Supine: Independent Sit To Stand: Modified Independent (Needs hands from thigh or chair) Stand To Sit: Independent Gait Weight Bearing Status: FWB Gait: Independent Gait Device: None Gait Observation: Relatively normal Stairs: Independent Stairs: Reciprocal with use of rail/s. Step-to patterning without rail. Decreased stability on RLE. Functional Performance Test Results Assistive Device: None 30 Second Chair Stand Test: 9 reps (3 reps with bilateral hand push from legs, rest of the reps with RUE push from arm rest.) 5 Times Sit to Stand Test : 15.77 sec (3 reps with bilateral hand push from legs, 2 reps with RUE push from arm rest.) Timed Up and Go (sec): 11.88 sec 4 Stage Balance Test Narrow base of support (sec): 10 sec (EO & EC) Semi-tandem base of support (sec): 10 sec (EO & EC, L Foot Back) Tandem base of support (sec): 0.75 sec (EO, L Foot Back) Single leg stance - right (sec): 0.5 sec Single leg stance - left (sec): 0.5 sec Dynamic Gait Index Gait level surface : 3 - Normal- walks 20' no assist device, good speed, no imbalance, normal gait pattern Change in gait speed: 3 - Normal- able to smoothly change walking speed without loss of balance or gait deivations. Shows significant difference in walking speeds Gait and horizontal head turns: 3 - Normal- performs R/L head turns smoothly with no change in gait Gait and vertical head turns: 3 - Normal- performs up/down head turns smoothly with no change in gait Gait and pivot: 3 - Normal- pivot turn safely within 3 sec, stops quickly, no loss of balance Step over obstacle: 2 - Mild impairment- is able to step over box, but must slow down and adjust steps to clear box Step around obstacle: 2 - Mild impairment- able to step around both cones, must slow down and adjust steps to clear cones Steps: 2 - Mild impairment- alternating feet, must use rail Dynamic Gait Index Total: 21 Education: Education Learning Preferences: Demonstration, Explanation, Printed Materials Barriers: None Learning/educational needs: Home exercise program, Safety, Plan of Care, Health promotion Education Provided: Yes, see treatment interventions for education provided Education Provided To: Patient Education Mode/Type: Demonstration, Explanation/Discussion, Literature/Printed Materials Response to Education/Teach Back: States/Identifies TREATMENT: PT Treatment Interventions: Therapeutic Exercise Evaluation Therapeutic Exercise: 1: Reviewed HEP Exercises. PT provided demonstration and cueing of exercises for proper completion. Pt demonstrated understanding. 2: Discussed therapy goals, exercise purpose, HEP handout provided. Discussed exam findings and how therapy plans to improve patients confidence & performance in balance/gait . Discussed treatment options. 3: *STS with reese use of hands on thighs: 1x6. 4: *STS with b hands for chair: 1x10. 5: *Alt. Hip Marchinx15 each. 6: *Alt. Hip ABD: 1x10 each. 7: Discussed falls and fall safety. Skilled Intervention: Patient was educated in proper exercise technique and purpose for exercises. Reviewed and educated patient on additions/changes for home exercise program as above (*). Skilled judgment was used in selection of appropriate interventions. Provided written instruction for home exercise program to facilitate proper performance and compliance. Correct performance of therapeutic exercises was facilitated with verbal and tactile cuing. Billing * Evaluation Low Complexity: 1 Unit Therapeutic Exercise Treatment Minutes: 25 Skilled Treatment Time Minutes (timed and untimed codes): 45 Total Session Time (minutes): 45 Session Start Time : 1045 Session Stop Time : 1130 Ramon Lee PT documented in this encounterVeterans Health Administration03-04-2025 Note[facility] [place]-20-2025 NoteSelect [facility] [place]-20-2025 History of Present illness Narrative* Dallas Reed MD - 11/09/2024 2:20 PM EST This note was created using VitaPortalriter. Subjective Leana Camejo is a 84 year old male. He slipped on ice and fell back hitting his head. He was seen in 2 days ago. He felt fine with no headache, dizziness, nausea, vomiting or confusion. He's had recent surgeries and felt weaker in both legs, especially getting out of a chair. Review of Systems Constitutional: Negative for fatigue and fever. HENT: Negative for congestion, ear discharge and postnasal drip. Eyes: Negative for visual disturbance. Respiratory: Negative for shortness of breath. Gastrointestinal: Negative for nausea and vomiting. Neurological: Positive for weakness. Negative for dizziness, syncope, facial asymmetry, light-headedness, numbness and headaches. 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 Vitiligo CKD (chronic kidney disease) stage 3, GFR 30-59 ml/min (HCC) Chronic Diastolic Chf (Congestive Heart Failure) (Hcc) Allergic Rhinitis Abdominal Aortic Aneurysm (Aaa) Without Rupture (Hcc) Overweight (Bmi 25.0-29.9) S/P carotid endarterectomy right Collagenous Colitis S/P Aaa Repair Spigelian Hernia Pancreatic Cyst Splenomegaly Subclinical Hypothyroidism Social History Tobacco Use Smoking status: Former Current packs/day: 0.00 Average packs/day: 1 pack/day for 2.0 years (2.0 ttl pk-yrs) Types: Cigarettes Start date: 09/20/1962 Quit date: 09/20/1964 Years since quittin.1 Smokeless tobacco: Never Vaping Use Vaping status: Never Used Substance Use Topics Alcohol use: No Drug use: No Current Outpatient Medications Medication Sig mupirocin (BACTROBAN) 2 % ointment Apply to affected area three times a day for 10 days. hydrALAZINE (APRESOLINE) 100 mg tablet Take 1 tablet by mouth three times a day. levothyroxine (SYNTHROID) 25 mcg tablet Take 1 tablet by mouth daily before breakfast. bempedoic acid (NEXLETOL) 180 mg tablet Take 1 tablet (180 mg) by mouth once daily. fluticasone (FLONASE) 50 mcg/actuation nasal spray Use 1 [place] in each nostril daily at bedtime. aspirin 81 mg chewable tablet Take 1 tablet by mouth once daily. furosemide (LASIX) 20 mg tablet Take 1 tablet by mouth once daily. losartan (COZAAR) 100 mg tablet Take 1 tablet by mouth once daily. ezetimibe (ZETIA) 10 mg tablet Take 1 tablet by mouth once daily. carvedilol (COREG) 12.5 mg tablet Take 1 tablet by mouth two times a day with meals. ascorbic acid, vitamin C, 500 mg cap DAILY TURMERIC ORAL Take by mouth. ubidecarenone/vitamin E mixed (COQ10 SG 100 ORAL) Take by mouth. levOCARNitine (L-CARNITINE) 500 mg capsule Take 500 mg by mouth. Zinc Gluconate 50 mg tablet Take 50 mg by mouth once daily. doxazosin (CARDURA) 8 mg tablet Take 1 tablet by mouth daily at bedtime. triamcinolone acetonide (KENALOG) 0.1 % cream glucosamine/chondr rich A sod (OSTEO BI-FLEX ORAL) Take 2 tablets by mouth once daily. Magnesium 200 mg tab Take 400 mg by mouth once daily. Cholecalciferol, Vitamin D3, 25 mcg (1,000 unit) cap Take 5,000 Units by mouth once daily. multivit-minerals/FA/lycopene (ONE-A-DAY MEN'S ORAL) Take 1 tablet by mouth once daily. vitamin b complex (B COMPLETE) tab Take 1 tablet by mouth once daily. No current facility-administered medications for this visit. Objective BP 120/63 (BP Site: Left Arm, BP Position: Sitting, BP Cuff Size: Large Adult) Pulse 66 Temp 37.1 C (98.7 F) (Temporal) Wt 68.9 kg (151 lb 14.4 oz) BMI 23.02 kg/m Physical Exam Constitutional: General: He is not in acute distress. HENT: Head: Comments: Abrasion, contusion at vertex. No hematoma. Eyes: Extraocular Movements: Extraocular movements intact. Conjunctiva/sclera: Conjunctivae normal. Pupils: Pupils are equal, round, and reactive to light. Cardiovascular: Heart sounds: Normal heart sounds. Pulmonary: Breath sounds: Normal breath sounds. Musculoskeletal: General: No tenderness. Cervical back: Neck supple. No tenderness. Neurological: General: No focal deficit present. Mental Status: He is alert and oriented to person, place, and time. Cranial Nerves: No cranial nerve deficit. Sensory: No sensory deficit. Motor: Weakness present. Coordination: Coordination normal. Gait: Gait abnormal. Comments: Unable to get up from chair without using arms. Assessment and Plan 1. Contusion of scalp, subsequent encounter - ICD9: V58.89, 920, ICD10: S00.03XD (primary diagnosis) - CONSULT TO PHYSICAL THERAPY 2. Fall, subsequent encounter - ICD9: V58.89, E888.9, ICD10: W19.XXXD - CONSULT TO PHYSICAL THERAPY 3. Proximal leg weakness - ICD9: 729.89, ICD10: R29.898 - CONSULT TO PHYSICAL THERAPY Dallas Reed MD documented in this encounterVeterans Health Administration02-18-2025 NoteSelect [facility]ty [facility] [place]02-18-2025 History of Present illness Narrative* Elbert Hawk APRN.[facility] - 11/07/2024 11:57 AM EST Subjective HPI HPI Leana Camejo is a 84 year old male who presents today for CC of fall 3 days ago, hit/scraped head. Concerned needs hematoma drained. Denies h/a, dizziness, head pain, visual changes. Reports did not black out with fall. .Patient presents with: Fall: Fell ion concrete steps on Wednesday, states he slipped on ice, has contusion on back of head,denies any pain, or any sx of concussion, states he also fell going in the door PAST MEDICAL HISTORY Diagnosis Date Abdominal aortic aneurysm (AAA) without rupture ([facility]) 08/26/201708/2017: 3.7 cm Anemia Chronic diastolic CHF (congestive heart failure) ([facility]) 10/20/[address] Montes CKD (chronic kidney disease) stage 3, GFR 30-59 ml/min ([facility]) 02/20/2014 Collagenous colitis 02/04/2023 COVID-19 09/12/2021 DDD (degenerative disc disease), lumbar 08/26/2017 Diarrhea Diverticulosis of colon (without mention of hemorrhage) Hematoma of right iliopsoas muscle 06/21/2019 Internal hemorrhoids without mention of complication Lumbar radiculopathy 08/26/2017 Mixed hyperlipidemia Hyperlipidemia S/P carotid endarterectomy right 01/20/2021 Unspecified essential hypertension Essential hypertension PAST SURGICAL HISTORY Procedure Laterality Date ARTHRP ACETBLR/PROX FEM PROSTC AGRFT/ALGRFT 08/02/2006 Hip replacement, total, Right BLEPHAROPLASTY, UPPER EYELID 2013 CAROTID ENDARTERECTOMY Right 01/20/2021 w/ bovine patch angioplasty COLONOSCOPY - DIAGNOSTIC 01/15/2023 collagenous colitis, int hemorrhoids COLONOSCOPY FLX DX W/COLLJ SPEC WHEN PFRMD 03/18/2001 anemia COLONOSCOPY FLX DX W/COLLJ SPEC WHEN PFRMD 05/13/2010 repeat 10 yrs COLONOSCOPY FLX DX W/COLLJ SPEC WHEN PFRMD 05/21/2020 Colonoscopy ENTEROLSS FRING INTSTINAL ADHESION SPX 07/29/2015 ESOPHAGOGASTRODUODENOSCOPY TRANSORAL DIAGNOSTIC 03/18/2001 anemia ESOPHAGOGASTRODUODENOSCOPY TRANSORAL DIAGNOSTIC 05/21/2020 EGD I&D HEMATOMA Right 07/19/2019 CT guided aspiration, iliopsoas hematoma IR AAA ENDO REPAIR 2 LIMB 04/07/2023 AAA stent graft repair, [facility] LAPAROSCOPY SURG RPR INITIAL INGUINAL HERNIA 07/29/2015 LAPS RPR RECURRENT INCISIONAL HERNIA REDUCIBLE 07/29/2015 PAST SURGICAL HISTORY OF 09/09/2015 left total knee arthroplasty PAST SURGICAL HISTORY OF 09/15/2017 micro-disectomy L4-L5, with microcompression bilaterally. PAST SURGICAL HISTORY OF Right 12/16/2018 Repair of complex lateral meniscus tear, Right knee REPAIR UMBILICAL HERNIA 1980 Dr. Henry STRESS TEST 09/03/2017 normal ALLERGIES Clonidine, Crestor [Rosuvastatin Calcium], Lipitor [Atorvastatin Calcium], Lisinopril, and Statins [Ewvcxme-Ufl-Ygc Reductase Inhibitors] MEDICATIONS hydrALAZINE (APRESOLINE) 100 mg tablet Take 1 tablet by mouth three times a day. levothyroxine (SYNTHROID) 25 mcg tablet Take 1 tablet by mouth daily before breakfast. bempedoic acid (NEXLETOL) 180 mg tablet Take 1 tablet (180 mg) by mouth once daily. fluticasone (FLONASE) 50 mcg/actuation nasal spray Use 1 [place] in each nostril daily at bedtime. aspirin 81 mg chewable tablet Take 1 tablet by mouth once daily. furosemide (LASIX) 20 mg tablet Take 1 tablet by mouth once daily. losartan (COZAAR) 100 mg tablet Take 1 tablet by mouth once daily. ezetimibe (ZETIA) 10 mg tablet Take 1 tablet by mouth once daily. carvedilol (COREG) 12.5 mg tablet Take 1 tablet by mouth two times a day with meals. ascorbic acid, vitamin C, 500 mg cap DAILY TURMERIC ORAL Take by mouth. ubidecarenone/vitamin E mixed (COQ10 SG 100 ORAL) Take by mouth. levOCARNitine (L-CARNITINE) 500 mg capsule Take 500 mg by mouth. Zinc Gluconate 50 mg tablet Take 50 mg by mouth once daily. doxazosin (CARDURA) 8 mg tablet Take 1 tablet by mouth daily at bedtime. triamcinolone acetonide (KENALOG) 0.1 % cream glucosamine/chondr rich A sod (OSTEO BI-FLEX ORAL) Take 2 tablets by mouth once daily. Magnesium 200 mg tab Take 400 mg by mouth once daily. Cholecalciferol, Vitamin D3, 25 mcg (1,000 unit) cap Take 5,000 Units by mouth once daily. multivit-minerals/FA/lycopene (ONE-A-DAY MEN'S ORAL) Take 1 tablet by mouth once daily. vitamin b complex (B COMPLETE) tab Take 1 tablet by mouth once daily. mupirocin (BACTROBAN) 2 % ointment Apply to affected area three times a day for 10 days. FAMILY HISTORY Problem Relation Age of Onset Cancer Mother oral Cancer Father Lymphnode, Lung, Liver other (brain tumor) Other Social History Tobacco Use Smoking status: Former Current packs/day: 0.00 Average packs/day: 1 pack/day for 2.0 years (2.0 ttl pk-yrs) Types: Cigarettes Start date: 09/20/1962 Quit date: 09/20/1964 Years since quittin.1 Smokeless tobacco: Never Vaping Use Vaping status: Never Used Substance Use Topics Alcohol use: No Drug use: No ROS Objective Blood pressure 150/81, pulse (!) 57, temperature 36.6 C (97.8 F), resp. rate 18, weight 69 kg (152 lb 1.9 oz), SpO2 100%. Physical Exam Constitutional: General: He is not in acute distress. Appearance: He is not toxic-appearing or diaphoretic. HENT: Head: Normocephalic and atraumatic. Pulmonary: Effort: Pulmonary effort is normal. No accessory muscle usage or respiratory distress. Neurological: Mental Status: He is alert and oriented to person, place, and time. Cranial Nerves: Cranial nerves 2-12 are intact. No facial asymmetry. Sensory: Sensation is intact. No sensory deficit. Motor: No weakness. ASSESSMENT/PLAN: 1. Abrasion of head, initial encounter - ICD9: 910.0, ICD10: S00.91XA Try topical atb Urgent f/u for red flag s/s Will schedule recheck with pcp in 2 days. - MUPIROCIN 2 % TOPICAL OINTMENT Elbert Hawk APRN.[facility]WNA documented in this encounterVeterans Health Administration01-13-2025 Telephone encounter Note * Telephone Encounter - Cassandra Couch LPN - 10/02/2024 12:36 PM EST Patient has been identified by name and date of : Yes Patient phones for refill(s): Requested Prescriptions Pending Prescriptions Disp Refills hydrALAZINE (APRESOLINE) 100 mg tablet 90 tablet 5 Sig: Take 1 tablet by mouth three times a day. Date of last office visit in primary care: 09/07/2024 Date of next office visit in primary care: 03/12/2025 Please advise. Thank you. Cassandra Couch LPN. [facility]01-13-2025 Miscellaneous Notes* Telephone Encounter - Cassandra Couch LPN - 10/02/2024 12:36 PM EST Patient has been identified by name and date of : Yes Patient phones for refill(s): Requested Prescriptions Pending Prescriptions Disp Refills hydrALAZINE (APRESOLINE) 100 mg tablet 90 tablet 5 Sig: Take 1 tablet by mouth three times a day. Date of last office visit in primary care: 09/07/2024 Date of next office visit in primary care: 03/12/2025 Please advise. Thank you. Cassandra Couch LPN. 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 Would like script sent to [facility]. [facility]12-20-2024 Miscellaneous Notes* Telephone Encounter - Ibeth Manriquez LPN - 09/08/2024 9:31 AM EST PATIENT NOTIFIED OF SAME. Would like script sent to [facility]. * Telephone Encounter - Ibeth Manriquez LPN - 09/08/2024 9:29 AM EST ----- Message from Darya Borden APRN.CNP sent at 09/08/2024 6:34 AM EST ----- Please let the patient know his lab results are consistent with hypothyroidism. Start treatment with levothyroxine 25 mcg daily and recheck thyroid labs in 3 months Darya Borden APRN.[employer]DLER [employer]ATOR documented in this encounterVeterans Health Administration12-20-2024 Telephone encounter Note * Telephone Encounter - Ibeth Manriquez LPN - 09/08/2024 9:29 AM EST ----- Message from Darya Borden APRN.SHAWNA sent at 09/08/2024 6:34 AM EST ----- Please let the patient know his lab results are consistent with hypothyroidism. Start treatment with levothyroxine 25 mcg daily and recheck thyroid labs in 3 months Darya Borden APRN.RIDDLER OPERATOR [facility]12-19-2024 Instructions* Patient Instructions* Darya Borden APRN.CNP - 09/07/2024 10:09 AM EST Start fluticasone (Flonase) for the drippy nose Screening schedule The following prevention plan is recommended: DTaP,Tdap,Td Vaccine(1 - Tdap) due on 07/08/2005 Shingrix Vaccine(2 of 3) due on 10/13/2014 RSV Vaccine(1 - 1-dose 75+ series) Never done WHAT YOU CAN DO TO PREVENT FALLS Many falls can be prevented. By making some changes, you can lower your chances of falling. Four things YOU can do to prevent falls for you* and your caregiver 1. Begin a regular exercise program Exercise is one of the most important ways to lower your chances of falling. It makes you stronger and helps you feel better. Exercises that improve balance and coordination (like Demond Chi) are the most helpful. Lack of exercise leads to weakness and increases your chances of falling. Ask your doctor or health care provider about the best type of exercise program for you. 2. Have your health care provider review your medicines Have your doctor or pharmacist review all the medicines you take, even [id number]-[id number] medicines. As you get older, the way medicines work in your body can change. Some medicines, or combinations of medicines, can make you sleepy or dizzy andcan cause you to fall. 3. Have your vision checked Have your eyes checked by an eye doctor at least once a year. You may be wearing the wrong glasses or have a condition like glaucoma or cataracts that limits your vision. Poor vision can increase your chances of falling. 4. Make your home safer About half of all falls happen at home. To make your home safer: Remove things you can trip over (like papers, books, clothes, and shoes) from stairs and places where you walk. Remove small throw rugs or use double-sided tape to keep the rugs from slipping. Keep items you use often in cabinets you can reach easily without using a step stool. Have grab bars put in next to your toilet and in the tub or shower. Use non-slip mats in the bathtub and on shower floors. Improve the lighting in your home. As you get older, you need brighter lights to see well. Hang light-weight curtains or shades to reduce glare. Have handrails and lights put in on all staircases. Wear shoes both inside and outside the house. Avoid going barefoot or wearing slippers. For more information, contact: Centers for Disease Control and Prevention www.cdc.gov/injury * This information may not apply if you have certain medical conditions. documented in this encounterVeterans Health Administration12-19-2024 NoteSelect Medical Specialty [facility] [place]12-19-2024 History of Present illness Narrative* Darya Borden APRN.SHAWNA - 09/07/2024 10:07 AM EST Images from the original note were not included. Leana Camejo is a 84 year old male here for a Medicare wellness visit. Medicare Health Risk Assessment General Health Very good Exercise: Minutes/Day 0 min Exercise: Days/Week 0 days Alcohol: Daily Use Never Alcohol: Drinks/Day Patient does not drink Alcohol: 6 or more drinks Never Feel off balance No Concerns: Teeth/Dentures No Concerns: Sexual function No Troubled by feelings None of the above Frequency: Eating healthy diet Nearly every day ADLs requiring help None of the above Safety precautions in home/vehicle Yes Smoke, vape, chews tobacco No Difficulty hearing Yes, I wear a hearing aid Difficulty seeing No Current Providers Specialists: I have reviewed specialist-related care of the patient in the medical record. Current care team: Patient Care Team: Dallas Reed MD as PCP - General (Internal Medicine) Fide Goff RN as Wine Maker (Internal Medicine) Darya Borden APRN.CNP as Host/Hostess Head (Internal Medicine) Cardiology- Dr. Felipe Enterprise Sales Person- Dr. Dominguez Vascular surgeon-Dr. Bruce Medical/Family history review Reviewed and updated problem list, medical/surgical/family/social history, medications, and allergies. Opioid use review Opioid Medications (last 90 days) No data to display Anxiety/Depression screening PHQ-2 Score: 0 (Lower risk for depression) STEFFANIE-2 Score: 0 (Lower risk for anxiety) Recommendation: no further intervention at this time Cognitive screening Mini Cog Score: 2 Cognitive screening reviewed and Recommended referral for further evaluation (score 0-2). Functional Observation Was the patient's Timed Up & Go test unsteady or >= 12 seconds? No Advance Care Planning Patient was not able to provide a surrogate decision maker or written advance directives Measurements BP 122/84 Pulse 68 Resp 14 Ht 173 cm (5' 8.11) Wt 69.4 kg (153 lb) SpO2 98% BMI 23.19 kg/m Vision Screening: Follows with optometry/ophthalmology Assessment/Plan Medicare annual wellness visit, subsequent (Z00.00) - Counseled on healthy diet and regular exercise - Fall avoidance information provided - Personalized prevention plan provided Additional Concerns The following concerns were also discussed with the patient: TSH is elevated, higher than previous. He has no history of hypothyroidism. He reports fatigue, cold intolerance, feeling sluggish, weight loss and brain fog. He is taking all medications as prescribed, denies side effects. He had hernia surgery last week and feels fully recovered. Denies complications. PHYSICAL EXAM BP 122/84 Pulse 68 Resp 14 Ht 173 cm (5' 8.11) Wt 69.4 kg (153 lb) SpO2 98% BMI 23.19 kg/m GENERAL: well appearing, alert, in no acute distress CARDIOVASCULAR: regular rate and rhythm. No murmur, rubs or gallops. PULMONARY: clear to auscultation, no wheezing, rhonchi, or crackles ASSESSMENT/PLAN: 1. Medicare annual wellness visit, subsequent - ICD9: V70.0, ICD10: Z00.00 (primary diagnosis) See medicare wellness plan 2. Hypothyroidism, unspecified type - ICD9: 244.9, ICD10: E03.9 Symptomatic. Check: - T4 FREE/FREE THYROXINE - T3 3. TIA (transient ischemic attack) - ICD9: 435.9, ICD10: G45.9 Doing well on new medication, refilled today. - BEMPEDOIC ACID 180 MG TABLET 4. Mixed hyperlipidemia - ICD9: 272.2, ICD10: E78.2 - Controlled - Continue current medications - BEMPEDOIC ACID 180 MG TABLET 5. Primary hypertension - ICD9: 401.9, ICD10: I10 - Controlled - Continue current medications - Recommend home blood pressure monitoring, to bring results to next visit - Encouraged sodium restriction, DASH or Mediterranean diet 6. Screening for depression - ICD9: V79.0, ICD10: Z13.31 - DEPRESSION SCREENING 7. Encounter for screening examination for other mental health and behavioral disorders - ICD9: V79.8, ICD10: Z13.39 - ANXIETY SCREENING 8. 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 Stage 3b chronic kidney disease (HCC) - ICD9: 585.3, ICD10: N18.32 - eGFR: 44 Stable - Counseled on avoiding NSAIDs, adequate hydration - Counseled on low sodium diet Darya Borden APRN.RIDDLER OPERATOR documented in this encounterVeterans Health Administration12-09-2024 [facility] History of Present illness Narrative* Fide Goff RN - 08/28/2024 11:06 AM EST CDM Telephonic Outreach Provider Action/FYI CDM: CHF, CKD 2nd Attempt Lvm, Instructed to contact PCP/Provider for symptom changes, concerns or needs. Contacted for: Routine Telephonic Outreach Contact made with patient: No, left message. Fide Goff RN August 28, 2024 11:09 AM documented in this encounterVeterans Health Administration12-05-2024 [facility]12-[facility]-2024 History of Present illness Narrative* Fide Goff RN - 08/24/2024 1:20 PM EST CDM Telephonic Outreach Provider Action/FYI CDM: CHF, CKD 1st Attempt Lvm, Instructed to contact PCP/Provider for symptom changes, concerns or needs. Contacted for: Routine Telephonic Outreach Contact made with patient: No, left message. Fide Goff RN August 24, 2024 1:21 PM documented in this encounterVeterans Health Administration12-04-2024 [facility] Medical Records Department [address] [place] [address] History Physical Exam 08/23/24 1233 MR#: [id number] Acct: [id number] Name: LEANA CAMEJO Rep #: [id number] : 1940 84 From: Lara Fonseca MD PCP: Dr. Dallas Reed MD Status:[facility] Location: [place] [address] History and Physical Date of Admission: 08/23/24 Date of Service: 07/26/24 MR#: [id number] Acct: [id number] Name: LEANA CAMEJO Rep #: [id number] : 1940 Provider: Dr. Lara Fonseca MD Age/Sex: 84/M Location: [facility] Status: Signed Intake Vital Signs 07/11/2416:09 07/26/2409:19 Height 5 ft 8 in 5 ft 8 in Weight: 156 lb BMI 23.7 BP 111/66 Blood Pressure Location Rt brachial Position Sitting Respiration 18 Intake Visit Reasons: SPIGELIAN HERNIA Chief Complaint: spigelian hernia Drafting Engineer Required: No Is patient in pain?: No Allergies lisinopril Allergy (Intermediate, Verified 07/26/24 09:20) Rashatorvastatin calcium (From Lipitor) Allergy (Verified 07/26/24 09:20) Otherclonidine Allergy (Verified 07/26/24 09:20) Unknownrosuvastatin calcium (From Crestor) Allergy (Verified 07/26/24 09:20) IfwsdUxpjmkz-UJF-EiZ Reductase Inhibitor (Xdcbqul-Gxm-Hyp Reductase Inhibitor) Allergy (Verified 07/26/24 09:20) Other Medications ???Medication ???Instructions ???Recorded ???Confirmed ???Type losartan 100 mg tablet 100 mg PO DAILY BP 05/17/19 07/26/24 History cholecalciferol (vitamin D3) 50 2,000 unit PO DAILY supplement 05/18/19 07/26/24 History mcg (2,000 unit) capsule multivitamin 1 tab PO DAILY supplement 05/18/19 07/26/24 History ascorbic acid (vitamin C) 500 mg 2,000 mg PO DAILY supplement 02/14/20 07/26/24 History capsule carvedilol 12.5 mg tablet 12.5 mg PO BID heart #180 tabs 11/12/21 07/26/24 Rx doxazosin 8 mg tablet 8 mg PO QHS prostate 05/23/24 07/26/24 History hydralazine 100 mg tablet 100 mg PO TID blood pressure 05/23/24 07/26/24 History magnesium oxide 400 mg (241.3 mg 400 mg PO DAILY supplement 05/23/24 07/26/24 History magnesium) tablet aspirin 81 mg chewable tablet 81 mg PO BREAKFAST 30 days #30 tabs 05/24/24 07/26/24 Rx bempedoic acid 180 mg tablet 180 mg PO DAILY 07/11/24 07/26/24 History (Nexletol) ezetimibe 10 mg tablet 10 mg PO DAILY 07/11/24 07/26/24 History furosemide 20 mg tablet 20 mg PO DAILY 07/11/24 07/26/24 History polyethylene glycol 3350 17 17 g PO DAILY #238 grams 07/11/24 07/26/24 Rx gram/dose oral powder (Miralax) Have you fallen in the past year?: No PFSH Medical History Ataxia History of echocardiogram Easy bruising Excessive bleeding History of IBS Former smoker History of stress test Cardiology follow-up encounter History of irregular heartbeat Preop cardiovascular exam Irregular heart beat Stenosis of right internal carotid artery Abdominal aortic 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 Essential hypertension Lumbar disc disease 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 Hyperlipidemia Diverticulosis Pre-operative cardiovascular examination Anemia 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, NYHA class 2 RSV (respiratory syncytial virus pneumonia) Shortness of breath Cough productive of purulent sputum Surgical History S/P AAA repair History of right-sided carotid endarterectomy Hx of cataract surgery Hx of appendectomy History of tonsillectomy History of back surgery History of colonoscopy History of blepharoplasty History of inguinal hernia repair History of umbilical hernia repair 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 Family History Father Lung cancer Liver cancerMother Oral cancer Social History household members: spouse Smoking Status: Former smoker second hand exposure: No alcohol intake: never substance use type: does not use caffeine: Yes Type: coffee Number of servings: 2 HPI HPI HPI: 84-year-old male presents for follow-up from ER on 07/11/2024 patient was having left-sided abdominal pain CT abdomen pelvis showed left spigelian hernia. This was able to be reduced in the ER. Patient denies having any issues since the ER visit or prior to the ER visit. Patient had a CT abdomen pelvis in 2022 which again shows this left spigelian hernia containing fat. Patient has had a right inguinal hernia pair, umbilical hernia pair and AAA EVAR with endoleak type II in the past. ROS (more content not included)...[facility]12-04-2024 [facility] Medical Records Department [address] [place] [address] History Physical Exam 08/23/24 1233 MR#: [id number] Acct: [id number] Name: LEANA CAMEJO Rep #: [id number] : 1940 84 From: Lara Fonseca MD PCP: Dr. Dallas Reed MD Status:[facility] Location: [place] [address] History and Physical Date of Admission: 08/23/24 Date of Service: 07/26/24 MR#: [id number] Acct: [id number] Name: LEANA CAMEJO Rep #: [id number] : 1940 Provider: Dr. Laar Fonseca MD Age/Sex: 84/M Location: [facility] Status: Signed Intake Vital Signs 07/11/2416:09 07/26/2409:19 Height 5 ft 8 in 5 ft 8 in Weight: 156 lb BMI 23.7 BP 111/66 Blood Pressure Location Rt brachial Position Sitting Respiration 18 Intake Visit Reasons: SPIGELIAN HERNIA Chief Complaint: spigelian hernia Drafting Engineer Required: No Is patient in pain?: No Allergies lisinopril Allergy (Intermediate, Verified 07/26/24 09:20) Rashatorvastatin calcium (From Lipitor) Allergy (Verified 07/26/24 09:20) Otherclonidine Allergy (Verified 07/26/24 09:20) Unknownrosuvastatin calcium (From Crestor) Allergy (Verified 07/26/24 09:20) LkezmNyhioll-JAW-XlO Reductase Inhibitor (Isrottt-Qow-Wsb Reductase Inhibitor) Allergy (Verified 07/26/24 09:20) Other Medications ???Medication ???Instructions ???Recorded ???Confirmed ???Type losartan 100 mg tablet 100 mg PO DAILY BP 05/17/19 07/26/24 History cholecalciferol (vitamin D3) 50 2,000 unit PO DAILY supplement 05/18/19 07/26/24 History mcg (2,000 unit) capsule multivitamin 1 tab PO DAILY supplement 05/18/19 07/26/24 History ascorbic acid (vitamin C) 500 mg 2,000 mg PO DAILY supplement 02/14/20 07/26/24 History capsule carvedilol 12.5 mg tablet 12.5 mg PO BID heart #180 tabs 11/12/21 07/26/24 Rx doxazosin 8 mg tablet 8 mg PO QHS prostate 05/23/24 07/26/24 History hydralazine 100 mg tablet 100 mg PO TID blood pressure 05/23/24 07/26/24 History magnesium oxide 400 mg (241.3 mg 400 mg PO DAILY supplement 05/23/24 07/26/24 History magnesium) tablet aspirin 81 mg chewable tablet 81 mg PO BREAKFAST 30 days #30 tabs 05/24/24 07/26/24 Rx bempedoic acid 180 mg tablet 180 mg PO DAILY 07/11/24 07/26/24 History (Nexletol) ezetimibe 10 mg tablet 10 mg PO DAILY 07/11/24 07/26/24 History furosemide 20 mg tablet 20 mg PO DAILY 07/11/24 07/26/24 History polyethylene glycol 3350 17 17 g PO DAILY #238 grams 07/11/24 07/26/24 Rx gram/dose oral powder (Miralax) Have you fallen in the past year?: No PFSH Medical History Ataxia History of echocardiogram Easy bruising Excessive bleeding History of IBS Former smoker History of stress test Cardiology follow-up encounter History of irregular heartbeat Preop cardiovascular exam Irregular heart beat Stenosis of right internal carotid artery Abdominal aortic 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 Essential hypertension Lumbar disc disease 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 Hyperlipidemia Diverticulosis Pre-operative cardiovascular examination Anemia 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, NYHA class 2 RSV (respiratory syncytial virus pneumonia) Shortness of breath Cough productive of purulent sputum Surgical History S/P AAA repair History of right-sided carotid endarterectomy Hx of cataract surgery Hx of appendectomy History of tonsillectomy History of back surgery History of colonoscopy History of blepharoplasty History of inguinal hernia repair History of umbilical hernia repair 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 Family History Father Lung cancer Liver cancerMother Oral cancer Social History household members: spouse Smoking Status: Former smoker second hand exposure: No alcohol intake: never substance use type: does not use caffeine: Yes Type: coffee Number of servings: 2 HPI HPI HPI: 84-year-old male presents for follow-up from ER on 07/11/2024 patient was having left-sided abdominal pain CT abdomen pelvis showed left spigelian hernia. This was able to be reduced in the ER. Patient denies having any issues since the ER visit or prior to the ER visit. Patient had a CT abdomen pelvis in 2022 which again shows this left spigelian hernia containing fat. Patient has had a right inguinal hernia pair, umbilical hernia pair and AAA EVAR with endoleak type II in the past. ROS (more content not included)...[facility]11-14-2024 Telephone encounter Note* Telephone Encounter - Maribell Huston LPN - 08/03/2024 8:16 AM EST Form faxed back to number on it. [facility]11-14-2024 Miscellaneous Notes* Telephone Encounter - Maribell Huston LPN - 08/03/2024 8:16 AM EST Form faxed back to number on it. * Telephone Encounter - Dallas Reed MD - 08/02/2024 5:27 PM EST Form completed, signed. * Telephone Encounter - Maribell Huston LPN - 08/01/2024 10:36 AM EST Surgical clearance form rec'd and to pcp to review. * Telephone Encounter - Ranjana Soto RN - 08/01/2024 9:34 AM EST Maria E with Dr. Bruce calls to ask if we received surgical clearance forms for patient on 07/26/2024. Noted an OV note from Dr. Bruce but no forms. Maria E to re-fax forms to [phone]. Ranjana Soto RN documented in this encounterVeterans Health Administration11-13-2024 Telephone encounter Note * Telephone Encounter - Dallas Reed MD - 08/02/2024 5:27 PM EST Form completed, signed. [facility]11-12-2024 Telephone encounter Note* Telephone Encounter - Maribell Huston LPN - 08/01/2024 10:36 AM EST Surgical clearance form rec'd and to pcp to review. [place] [address]-12-2024 Telephone encounter Note* Telephone Encounter - Ranjana Soto RN - 08/01/2024 9:34 AM EST Mariae with Dr. Bruce calls to ask if we received surgical clearance forms for patient on 07/26/2024. Noted an OV note from Dr. Bruce but no forms. Maria E to re-fax forms to [phone]. Ranjana Soto RN [facility]11-04-2024 [facility]11-04-2024 History of Present illness Narrative* Fide Goff RN - 07/24/2024 9:57 AM EST CDM Telephonic Outreach Provider Action/FYI 07/11/24 Pt noted seen at [facility] ED for Left Abd Hernia pain 07/24/24 Pt denies nausea, or vomiting, denies Abd pain Voiding and BM's without difficulty, eating and hydrating well denies fever or chills No medications were ordered Pt has 07/26/24 Appt with Surgeon at [facility] Pt had recent bilateral shoulder pain, completed bilateral injections 07/17/24 by [facility] Instructed to contact PCP/Provider for symptom changes, concerns or needs.Patient verbalized understanding. AUG 14 2024 12:00 PM - Office Visit Internal Medicine Laureen - Dallas Reed MD Contacted for: Routine Telephonic Outreach Contact made with patient: Yes Patient identified by name and date of . Discussed care with patient Are you experiencing any new or worsening symptoms you need to talk about today? Yes Based on assessment nurse practitioner, the following disposition is advised: No symptoms or symptoms present, not severe. Routed to: No Action Needed PAVEL Education Provided this Outreach: No Fide Goff RN July 24, 2024 10:01 AM documented in this encounterVeterans Health Administration11-02-2024 [facility]11-02-2024 History of Present illness Narrative* Fide Goff RN - 07/22/2024 4:04 PM EDT CDM Telephonic Outreach Provider Action/FYI CDM: CHF, CKD 1st Attempt Contacted for: Routine Telephonic Outreach Contact made with patient: No, unable to leave message. Will reattempt call Fide Goff RN July 22, 2024 4:08 PM documented in this encounterVeterans Health Administration10-28-2024 Instructions* Patient Instructions* Dallas Reed MD - 07/17/2024 1:40 PM EDT FASTING BLOOD WORK NEXT MONTH BEFORE APPOINTMENT. documented in this encounterVeterans Health Administration10-28-2024 [facility]Select [facility]10-28-2024 History of Present illness Narrative* Dallas Reed MD - 07/17/2024 1:24 PM EDT This note was created using VitaPortalriter. Subjective Leana Camejo is a 84 year old male. He developed left lower quadrant pain and swelling about two weeks ago from push mowing. He went to the ER 07/11/24 and was diagnosed with a spigelian hernia. Yamila had a abdominal aortic aneurysm that was repaired with known endoleak being monitored. Other findings were an increasing size of pancreatic cyst and splenomegaly. Review of Systems Constitutional: Negative for chills, diaphoresis, fever and unexpected weight change. Respiratory: Negative for cough and shortness of breath. Cardiovascular: Negative for chest pain, palpitations and leg swelling. Gastrointestinal: Negative for abdominal distention, constipation, diarrhea, nausea and vomiting. Genitourinary: Negative for difficulty urinating. Neurological: Negative for dizziness and headaches. Hematological: Negative for adenopathy. Does not bruise/bleed easily. 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 Vitiligo CKD (chronic kidney disease) stage 3, GFR 30-59 ml/min (HCC) Chronic Diastolic Chf (Congestive Heart Failure) ([facility]) Allergic Rhinitis Abdominal Aortic Aneurysm (Aaa) Without Rupture (Hcc) Overweight (Bmi 25.0-29.9) S/P carotid endarterectomy right Collagenous Colitis S/P Aaa Repair Social History Tobacco Use Smoking status: Former Current packs/day: 0.00 Average packs/day: 1 pack/day for 2.0 years (2.0 ttl pk-yrs) Types: Cigarettes Start date: 09/20/1962 Quit date: 09/20/1964 Years since quittin.8 Smokeless tobacco: Never Vaping Use Vaping status: Never Used Substance Use Topics Alcohol use: No Drug use: No Current Outpatient Medications Medication Sig aspirin 81 mg chewable tablet Take 1 tablet by mouth once daily. bempedoic acid (NEXLETOL) 180 mg tablet Take 1 tablet (180 mg) by mouth once daily. furosemide (LASIX) 20 mg tablet Take 1 tablet by mouth once daily. losartan (COZAAR) 100 mg tablet Take 1 tablet by mouth once daily. hydrALAZINE (APRESOLINE) 100 mg tablet Take 1 tablet by mouth three times a day. ezetimibe (ZETIA) 10 mg tablet Take 1 tablet by mouth once daily. carvedilol (COREG) 12.5 mg tablet Take 1 tablet by mouth two times a day with meals. ascorbic acid, vitamin C, 500 mg cap DAILY TURMERIC ORAL Take by mouth. ubidecarenone/vitamin E mixed (COQ10 SG 100 ORAL) Take by mouth. levOCARNitine (L-CARNITINE) 500 mg capsule Take 500 mg by mouth. Zinc Gluconate 50 mg tablet Take 50 mg by mouth once daily. doxazosin (CARDURA) 8 mg tablet Take 1 tablet by mouth daily at bedtime. triamcinolone acetonide (KENALOG) 0.1 % cream glucosamine/chondr rich A sod (OSTEO BI-FLEX ORAL) Take 2 tablets by mouth once daily. Magnesium 200 mg tab Take 400 mg by mouth once daily. Cholecalciferol, Vitamin D3, 25 mcg (1,000 unit) cap Take 5,000 Units by mouth once daily. multivit-minerals/FA/lycopene (ONE-A-DAY MEN'S ORAL) Take 1 tablet by mouth once daily. vitamin b complex (B COMPLETE) tab Take 1 tablet by mouth once daily. ferrous sulfate (FEOSOL) 325 mg (65 mg iron) tablet Take 325 mg by mouth once daily. (Patient not taking: Reported on 07/17/2024) No current facility-administered medications for this visit. Objective BP 110/62 (BP Site: Left Arm, BP Position: Sitting, BP Cuff Size: Large Adult) Pulse 64 Temp 36.7 C (98.1 F) (Temporal) Resp 12 Wt 71.2 kg (156 lb 15.5 oz) BMI 23.87 kg/m Physical Exam Constitutional: General: He is not in acute distress. Appearance: He is not ill-appearing. HENT: Head: Normocephalic. Eyes: General: No scleral icterus. Conjunctiva/sclera: Conjunctivae normal. Cardiovascular: Rate and Rhythm: Normal rate and regular rhythm. Heart sounds: No murmur heard. No gallop. Pulmonary: Effort: No respiratory distress. Breath sounds: No wheezing or rales. Abdominal: General: Bowel sounds are normal. Palpations: Abdomen is soft. There is no fluid wave, hepatomegaly, splenomegaly or mass. Tenderness: There is no rebound. Hernia: A hernia is present. Comments: Left lower quadrant small reducible hernia. Musculoskeletal: Right lower leg: No edema. Left lower leg: No edema. Lymphadenopathy: Cervical: No cervical adenopathy. Neurological: Mental Status: He is alert. ER reports reviewed. Assessment and Plan 1. 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 I am referring him to Dr. Roxanne Fonseca. - CONSULT TO GENERAL SURGERY 2. 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) - ICD9: 441.4, ICD10: I71.43 - See above. I am referring him to Dr. Dustin Hawk. - CONSULT TO VASCULAR SURGERY 3. S/P AAA repair - ICD9: V45.89, ICD10: Z98.890, Z86.79 See above. - CONSULT TO VASCULAR SURGERY 4. Pancreatic cyst - ICD9: 577.2, ICD10: K86.2 See #1. - CONSULT TO GENERAL SURGERY 5. Splenomegaly - ICD9: 789.2, ICD10: R16.1 - Chronic. No known blood disorder. Dallas Reed MD documented in this encounterVeterans Health Administration10-22-2024 [facility]10-22-2024 History of Present illness Narrative* Gavin Rivero APRN.CNP - 07/11/2024 4:01 PM EDT Nontoxic-appearing male presents urgent care chief complaint abdominal pain and distention. Duration of symptom 1 week. Associated symptoms listed above. Presents today for evaluation. Discussed following up with PCP versus ED. Patient states will be seen emergency room today for further evaluationcare. Will be sent [facility]. will transport patient. Gavin Rivero APRN.CNP documented in this encounterVeterans Health Administration10-04-2024 [facility]10-04-2024 History of Present illness Narrative* Fide Goff RN - 06/23/2024 12:24 PM EDT CDM Telephonic Outreach Provider Action/FYI CDM: CHF, CKD Instructed to contact PCP/Provider for symptom changes, concerns or needs. Patient verbalized understanding. ADL, Falls, SDH updated BP 140/82 Contacted for: Engagement Contact made with patient: Yes Patient identified by name and date of . Discussed care with patient Outcomes: Patient switched from [facility] to telephone outreach Are you experiencing any new or worsening symptoms you need to talk about today? No Based on assessment nurse practitioner, the following disposition is advised: No symptoms or symptoms present, not severe. Routed to: No Action Needed PAVEL Education Provided this Outreach: No Fide Goff RN June 23, 2024 12:28 PM * Fide Goff RN - 06/22/2024 9:44 AM EDT CDM Telephonic Outreach Provider Action/FYI CDM: CHF, CKD 05/23/24 WC: Dizziness, TIA Contacted for: Engagement Contact made with patient: No, left message. Fide Goff RN June 22, 2024 9:47 AM documented in this encounterVeterans Health Administration10-03-2024 [facility]09-18-2024 Instructions* Patient Instructions* Dallas Reed MD - 06/07/2024 9:12 AM EDT FASTING BLOOD WORK JULY. documented in this encounterVeterans Health Administration09-18-2024 Note[facility] History of Present illness Narrative* Dallas Reed MD - 06/07/2024 8:34 AM EDT This note was created using NoteWriter. Subjective Patient presents with: [facility] F/U Leana Camejo is a 84 year old male admitted 05/23-05/24 for TIA. He presented with dizziness, dysequilibrium. Apparently he saw ENT just before and was informed it was not vertigo. Stroke work up was done and was negative for acute findings. Aspirin was started. Vascepa was suggested. We reviewed labresults, including those done here. His symptoms resolved. He had residual fatigue. He had questions about an injection given during his hospital stay that caused bruising. I assumed this was DVT prevention. Review of Systems Constitutional: Positive for fatigue. Negative for activity change. HENT: Negative. Respiratory: Negative for shortness of breath. Cardiovascular: Negative for chest pain, palpitations and leg swelling. Gastrointestinal: Negative. Musculoskeletal: Negative for gait problem. Neurological: Negative for dizziness, facial asymmetry, weakness, light- headedness, numbness and headaches. Hematological: Does not bruise/bleed easily. 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 Vitiligo CKD (chronic kidney disease) stage 3, GFR 30-59 ml/min (HCC) Chronic Diastolic Chf (Congestive Heart Failure) ([facility]) Allergic Rhinitis Abdominal Aortic Aneurysm (Aaa) Without Rupture ([facility]) Overweight (Bmi 25.0-29.9) S/P carotid endarterectomy right Collagenous Colitis S/P Aaa Repair Social History Tobacco Use Smoking status: Former Current packs/day: 0.00 Average packs/day: 1 pack/day for 2.0 years (2.0 ttl pk-yrs) Types: Cigarettes Start date: 09/20/1962 Quit date: 09/20/1964 Years since quittin.7 Smokeless tobacco: Never Vaping Use Vaping status: Never Used Substance Use Topics Alcohol use: No Drug use: No Current Outpatient Medications Medication Sig furosemide (LASIX) 20 mg tablet Take 1 tablet by mouth once daily. losartan (COZAAR) 100 mg tablet Take 1 tablet by mouth once daily. hydrALAZINE (APRESOLINE) 100 mg tablet Take 1 tablet by mouth three times a day. ezetimibe (ZETIA) 10 mg tablet Take 1 tablet by mouth once daily. carvedilol (COREG) 12.5 mg tablet Take 1 tablet by mouth two times a day with meals. ascorbic acid, vitamin C, 500 mg cap DAILY ferrous sulfate (FEOSOL) 325 mg (65 mg iron) tablet Take 325 mg by mouth once daily. TURMERIC ORAL Take by mouth. ubidecarenone/vitamin E mixed (COQ10 SG 100 ORAL) Take by mouth. levOCARNitine (L-CARNITINE) 500 mg capsule Take 500 mg by mouth. Zinc Gluconate 50 mg tablet Take 50 mg by mouth once daily. doxazosin (CARDURA) 8 mg tablet Take 1 tablet by mouth daily at bedtime. triamcinolone acetonide (KENALOG) 0.1 % cream glucosamine/chondr rich A sod (OSTEO BI-FLEX ORAL) Take 2 tablets by mouth once daily. Magnesium 200 mg tab Take 400 mg by mouth once daily. Cholecalciferol, Vitamin D3, 25 mcg (1,000 unit) cap Take 5,000 Units by mouth once daily. multivit-minerals/FA/lycopene (ONE-A-DAY MEN'S ORAL) Take 1 tablet by mouth once daily. vitamin b complex (B COMPLETE) tab Take 1 tablet by mouth once daily. No current facility-administered medications for this visit. Objective BP 124/62 (BP Site: Left Arm, BP Position: Sitting) Pulse 64 Temp 36.9 C (98.5 F) (Temporal) Resp 12 Wt 72.1 kg (158 lb 15.2 oz) BMI 24.17 kg/m Physical Exam Constitutional: General: He is not in acute distress. Appearance: He is not ill-appearing or diaphoretic. HENT: Head: Normocephalic. Eyes: Extraocular Movements: Extraocular movements intact. Conjunctiva/sclera: Conjunctivae normal. Cardiovascular: Rate and Rhythm: Rhythm irregular. Heart sounds: No murmur heard. No gallop. Pulmonary: Breath sounds: Normal breath sounds. Abdominal: Tenderness: There is no abdominal tenderness. Musculoskeletal: Right lower leg: No edema. Left lower leg: No edema. Neurological: General: No focal deficit present. Mental Status: He is alert and oriented to person, place, and time. Sensory: No sensory deficit. Motor: No weakness. Gait: Gait normal. Latest Ref Rn 05/31/2024 WBC 3.70 - 11.00 k/uL 6.32 RBC 4.20 - 6.00 m/uL 4.24 Hemoglobin 13.0 - 17.0 g/dL 12.6 (L) Hematocrit 39.0 - 51.0 % 39.2 MCV 80.0 - 100.0 fL 92.5 MCH 26.0 - 34.0 pg 29.7 MCHC 30.5 - 36.0 g/dL 32.1 RDW-CV 11.5 - 15.0 % 15.8 (H) Platelet Count 150 - 400 k/uL 78 (L) MPV 9.0 - 12.7 fL 12.5 Neut% % 70.5 Abs Neut (ANC) 1.45 - 7.50 k/uL 4.46 Lymph% % 16.5 Abs Lymph 1.00 - 4.00 k/uL 1.04 Billings% % 10.0 Abs Billings <0.87 k/uL 0.63 Eosin% % 1.9 Abs Eosin <0.46 k/uL 0.12 Baso% % 0.6 Abs Baso <0.11 k/uL 0.04 Immature Gran % % 0.5 IMMATURE GRANS (ABS) <0.10 k/uL 0.03 NRBC /100 WBC 0.0 Absolute nRBC <0.01 k/uL <0.01 DTYPE Auto Color Yellow Yellow Clarity Clear Clear Glucose, Urine Negative Negative Bilirubin, Urine Negative Negative Ketones, Urine Negative Negative Specific [place], Ur 1.005 - 1.030 1.016 Hemoglobin/Blood,Ur Negative Negative pH, Urine <8.5 6.5 Protein, Urine Negative Negative Urobilinogen 0.2-1.0 EU/dL 1.0 EU/dL Nitrites Negative Negative Leukest Negative Negative WBC, Urine 0-5 /HPF 0-5 /HPF RBC, Urine 0-2 /HPF 0-2 /HPF Bacteria Negative /HPF Negative Epithelial Cells /HPF None Seen Hyaline Cast 0 /LPF 1-3 /LPF ! Protein, Total 6.3 - 8.0 g/dL 7.0 Albumin 3.9 - 4.9 g/dL 3.7 (L) Calcium 8.5 - 10.2 mg/dL 9.3 Bilirubin, Total 0.2 - 1.3 mg/dL 0.8 Alkaline Phosphatase 38 - 113 U/L 57 AST 14 - 40 U/L 27 ALT 10 - 54 U/L 22 Glucose 74 - 99 mg/dL 101 (H) BUN 9 - 24 mg/dL 31 (H) Creatinine 0.73 - 1.22 mg/dL 1.36 (H) Sodium 136 - 144 mmol/L 137 Potassium 3.7 - 5.1 mmol/L 4.1 Chloride 98 - 107 mmol/L 100 CO2 22 - 30 mmol/L 27 Anion Gap 8 - 15 mmol/L 10 eGFR >=60 mL/min/1.73m 51 (L) Iron 41 - 186 ug/dL 93 TIBC 232 - 386 ug/dL 271 Transferrin Saturation 15.0 - 57.0 % 34.3 TSH 0.270 - 4.200 mIU/L 4.400 (H) Vitamin B12 232 - 1,245 pg/mL 1,487 (H) Ferritin 30.3 - 565.7 ng/mL 297.0 Legend: (L) Low (H) High ! Abnormal Assessment and Plan 1. TIA (transient ischemic attack) - ICD9: 435.9, ICD10: G45.9 (primary diagnosis) Shared medical decision making was done. He agreed to try Nexlitol. Discussed medication dosage, usage, goals of therapy, and side effects. PA may be needed. Continue Zetia. - ASPIRIN 81 MG CHEWABLE TABLET - BEMPEDOIC ACID 180 MG TABLET 2. S/P carotid endarterectomy right - ICD9: V45.89, ICD10: Z98.890 - He will follow up with Dr. Hawk. 3. Chronic diastolic CHF (congestive heart failure) (HCC) - ICD9: 428.32, 428.0, ICD10: I50.32 - HFpEF 50+ - Continue current medications 4. Stage 3b chronic kidney disease (HCC) - ICD9: 585.3, ICD10: N18.32 - eGFR: 51 Stable - Counseled on avoiding NSAIDs, adequate hydration - COMPREHENSIVE METABOLIC PANEL 5. Thrombocytopenia (HCC) - ICD9: 287.5, ICD10: D69.6 - Recurrent. Chronic. Monitor. - COMPLETE BLOOD COUNT 6. Abnormal TSH - ICD9: 790.6, ICD10: R79.89 Rechek. - THYROID STIMULATING HORMONE 7. Mixed hyperlipidemia - ICD9: 272.2, ICD10: E78.2 - Improving control - BEMPEDOIC ACID 180 MG TABLET. See #1. - THYROID STIMULATING HORMONE - LIPID PANEL BASIC Dallas Reed MD documented in this encounterVeterans Health Administration09-04-2024 [facility] Medical Records Department [address] [place] [address] Discharge Summary 05/24/24 1137 MR#: [id number] Acct: [id number] Name: LEANA CAMJEO Rep #: [id number] : 1940 84 From: Brant Alcantara MD PCP: Dr. Dallas Reed MD Status:ADM ELSIE Location: PCU [place] [address] Providers Date of Admission: 05/23/24 Date of Discharge: 05/24/24 Primary Care Physician: Dr. Dallas Reed MD Consultations 05/23/24 23:06 Consult: Tele-Neurology Routine Consulting Provider: [facility] Reason for Consult: Acute Ischemic Stroke/TIA EMERGENT Consult: No MD Notified: Yes Date Notified: 05/24/24 Time Notified: 00:38 Method of Notification: Answering Service Nursing Unit Staff Notify [facility] of Tele-Neurology Consult: Yes Reason For Visit: TIA Diagnosis Discharge Diagnosis (1) TIA (transient ischemic attack): Status: Acute Code(s): G45.9 - Transient cerebral ischemic attack, unspecified Plan This 84-year-old gentleman was admitted with dizziness, off balance, gait instability and disequilibrium for about 48 hours prior to presentation to ED. No headache. 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 Calcified plaque noted at the origin of vertebral arteries with possible mild stenosis unchanged. Patient had a right carotid endarterectomy done by Dr. Perez in the past. 1. Possible TIA with imbalance dizziness/dysuria: Patient admitted in PCU. Chest x-ray no acute disease. MRI brain was done which shows no evidence of acute infarct. 2D echo shows EF 55%, LA mildly enlarged with bubble contrast study negative for R to L interatrial shunt. Fasting profile shows LDL 121, HDL 44 in normal range. TSH 3.3. A1c 4.8. Had full stroke workup done. PT and OT evaluated the patient and showed no need for further skilled therapy. Patient discharged on baby aspirin. Advised to follow with PCP for prior authorization of Vascepa as patient is allergic to statins. 2. Peripheral arterial disease: Has carotid disease chronic status post right CEA. AAA status postrepair. Advised to follow-up with vascular surgeon Dr. Hawk. 3. Chronic HFpEF: Echo shows normal EF and left ventricular function. 4. CKD stage IIIb: Creatinine 1.26 estimated creatinine clearance 42 mL/min. 5. Chronic thrombocytopenia: Platelet count 90,000. Monitor CBC weekly. Discontinue aspirin if platelet count drops less than 50,000 or hemoglobin less than 8 g% 6. Other chronic comorbidities include hypertension, dyslipidemia, blood pressure is controlled. Discharge medication reconciliation done. Discharge follow-up instructions completed. Discharge process discussed with the patient and all questions were answered to patient's satisfaction. Follow with PCP in 1 to 2 weeks Total time spent, exact 35 minutes on discharge meds reconciliation, examination, coordination of care with nurses and ancillary staff, review of imaging and blood test and discussion with the patient on follow-up instructions. Laboratory Results 05/23/24 16:30: PT 14.0, INR 1.1, APTT 38.8 H, Sodium 141, Potassium 4.1, Chloride 108 H, Carbon Dioxide 26.0, Anion Gap 7, BUN 34 H, Creatinine 1.32 H, Estim Creat Clear Calc 40.30, Est GFR (MDRD) Af Amer 66, Est GFR (MDRD) Non-Af 55 L, BUN/Creatinine Ratio 25.8 H, Glucose 122 H, Calcium 9.8 05/23/24 16:50: Magnesium 2.4, Troponin I High Sens 34 05/24/24 05:53: WBC 5.4, RBC 3.76 L, Hgb 11.0 L, Hct 34.3 L, MCV 91.2, MCH 29.3, MCHC 32.1, RDW Std Deviation 51.5 H, RDW Coeff of Erma 15.6 H, Plt Count 90 L, MPV 11.3, Immature Gran % (Auto) 0.600, Neut % (Auto) 65.5, Lymph % (Auto) 20.9, Billings % (Auto) 10.8 H, Eos % (Auto) 1.5, Baso % (Auto) 0.7, Absolute Neuts (auto) 3.5, Absolute Lymphs (auto) 1.12, Nucleated RBC % 0, Differential Comment COMMENT, Sodium 141, Potassium 3.6, Chloride 110 H, Carbon Dioxide 25.0, Anion Gap 6, BUN 29 H, Creatinine 1.26, Estim Creat Clear Calc 42.22, Est GFR (MDRD) Af Amer 70, Est GFR (MDRD) Non-Af 58 L, B UN/Creatinine Ratio 23.0 H, Glucose 91, Hemoglobin A1c 4.8, Calcium 8.5, Total Bilirubin 0.70, AST 21, ALT 22, Alkaline Phosphatase 52, Total Protein 6.3 L, Albumin 2.8 L, Globulin 3.5, A lbumin/Globulin Ratio 0.8 L, Triglycerides 76, Cholesterol 180, LDL Cholesterol 121, VLDL Cholesterol 15, HDL Cholesterol 44, TSH 3.380 Clinical Impression(s) from Imaging Studies Chest X-Ray 05/23/24 16:49 IMPRESSION: No acute disease Electronically Signed: Ana Gong MD at 17:16 EDT Reading Location ID and State: [facility] / [place] Tel , Service support , Head/Neck CTA 05/23/24 17:12 IMPRESSION: 50-70% stenosis proximal right ICA. No change. Calcified plaque noted at the origin of vertebral arteries with possible mild stenosis unchanged. Echocar (more content not included)...[facility]09-03-2024 Note [facility]09-03-2024 History of Present illness Narrative* Adrian Warner PA-C - 05/23/2024 2:13 PM EDT 05/23/2024 Patient presents with: Same Day Appointment: low blood pressure per ENT, dizziness. Patient checked BP at home and it was elevated SUBJECTIVE: This is a 84 year old that is here today for dizziness. Patient started with dizziness yesterday morning when he woke up. States the room was spinning above him. He has had vertigo previously and was treated successfully by [facility]. When he got up he just felt off balance and unsteady. Feels off per patient and this was new for him not consistent with the previous vertigo episodes. He has had some fatigue of recent and has noticed some weight loss ( unintentional). He saw ENT today and they referred him back to PCP office due to low blood pressure (but did not take at the time of the visit). Patient didn't take his losartan yesterday, but took all of his BP meds today. Denies HERNANDEZ, numbness/tingling, vomiting, diplopia. Having some night sweats recently. He has a had some mild SOB, and a slight cough. + rhinorrhea. Denies chest pain, fever/chills. He was see by GI-was having diarrhea. Prescribed medication that helpstop that. Now having a more formed stool. He'll have 1 formed stool per day. Last 6 Encounter Wt Readings: Date: Wt: 05/23/2024 70.8 kg (156 lb) 03/11/2024 74.6 kg (164 lb 7.4 oz) 02/09/2024 75.8 kg (167 lb 1.7 oz) 01/17/2024 75.5 kg (166 lb 8 oz) 01/10/2024 74.8 kg (165 lb) 08/10/2023 72.6 kg (160 lb)] MING He does take iron supplements because my said. AAA Recently rechecked. Denies abdominal pain, back pain. PAST MEDICAL HISTORY 08/26/2017: Abdominal aortic aneurysm (AAA) without rupture ([facility]) Comment: 08/2017: 3.7 cm No date: Anemia 10/20/2016: Chronic diastolic CHF (congestive heart failure) ([facility]) Comment: Sees Dr. Montes 02/20/2014: CKD (chronic kidney disease) stage 3, GFR 30-59 ml/min ([facility]) 02/04/2023: Collagenous colitis 09/12/2021: COVID-19 08/26/2017: DDD (degenerative disc disease), lumbar No date: Diarrhea No date: Diverticulosis of colon (without mention of hemorrhage) 06/21/2019: Hematoma of right iliopsoas muscle No date: Internal hemorrhoids without mention of complication 08/26/2017: Lumbar radiculopathy No date: Mixed hyperlipidemia Comment: Hyperlipidemia 01/20/2021: S/P carotid endarterectomy right No date: Unspecified essential hypertension Comment: Essential hypertension ALLERGIES Clonidine, Crestor [Rosuvastatin Calcium], Lipitor [Atorvastatin Calcium], Lisinopril, and Statins [Rnsosjq-Jyj-Oko Reductase Inhibitors] MEDICATIONS Current Outpatient Medications Medication Sig hydrALAZINE (APRESOLINE) 100 mg tablet Take 1 tablet by mouth three times a day. ezetimibe (ZETIA) 10 mg tablet Take 1 tablet by mouth once daily. carvedilol (COREG) 12.5 mg tablet Take 1 tablet by mouth two times a day with meals. ascorbic acid, vitamin C, 500 mg cap DAILY ferrous sulfate (FEOSOL) 325 mg (65 mg iron) tablet Take 325 mg by mouth once daily. TURMERIC ORAL Take by mouth. ubidecarenone/vitamin E mixed (COQ10 SG 100 ORAL) Take by mouth. levOCARNitine (L-CARNITINE) 500 mg capsule Take 500 mg by mouth. Zinc Gluconate 50 mg tablet Take 50 mg by mouth once daily. doxazosin (CARDURA) 8 mg tablet Take 1 tablet by mouth daily at bedtime. losartan (COZAAR) 100 mg tablet Take 1 tablet by mouth once daily. furosemide (LASIX) 20 mg tablet Take 1 tablet by mouth once daily. triamcinolone acetonide (KENALOG) 0.1 % cream DESENEX 2 % powder apply to THE GROIN AREA twice a day glucosamine/chondr rich A sod (OSTEO BI-FLEX ORAL) Take 2 tablets by mouth once daily. Magnesium 200 mg tab Take 400 mg by mouth once daily. Garlic 1,000 mg cap Take 1 capsule by mouth once daily. Cholecalciferol, Vitamin D3, 25 mcg (1,000 unit) cap Take 5,000 Units by mouth once daily. multivit-minerals/FA/lycopene (ONE-A-DAY MEN'S ORAL) Take 1 tablet by mouth once daily. vitamin b complex (B COMPLETE) tab Take 1 tablet by mouth once daily. No current facility-administered medications for this visit. Facility-Administered Medications Ordered in Other Visits Medication Dose Route Frequency lidocaine (PF) 10 mg/mL (1 %) 1-2 mg injection (XYLOCAINE) 0.1-0.2 mL INTRADERMAL PRN lactated ringers iv infusion 30 mL/hr INTRAVENOUS CONTINUOUS SOCIAL HISTORY Social History Tobacco Use Smoking status: Former Current packs/day: 0.00 Average packs/day: 1 pack/day for 2.0 years (2.0 ttl pk-yrs) Types: Cigarettes Start date: 09/20/1962 Quit date: 09/20/1964 Years since quittin.7 Smokeless tobacco: Never Vaping Use Vaping status: Never Used Substance Use Topics Alcohol use: No Drug use: No REVIEW OF SYSTEMS See HPI OBJECTIVE: BP 190/90 (BP Site: Left Arm, BP Position: Sitting, BP Cuff Size: Large Adult) Pulse 68 Resp 12 Ht 172.7 cm (5' 8) Wt 70.8 kg (156 lb) SpO2 98% BMI 23.72 kg/m APPEARANCE Well appearing, alert, in no acute distress, well-hydrated, well nourished. Brought a cane with him today due to imbalance. EYES PERRLA, conjunctiva and sclera normal. EARS External ears normal, canals clear NOSE/SINUS Nares normal. Septum midline. Mucosa normal. No drainage or sinus tenderness. THROAT normal, no erythema NECK Supple, no adenopathy; HEART RRR with normal S1 and S2 LUNG clear to auscultation, No wheezing, rhonchi, rales. NEURO Awake, alert and oriented x 3, Cranial nerves II-XII grossly intact, Reflexes symmetrical, Normal gait, and No involuntary motions. Normal finger to nose. ASSESSMENT/PLAN: 1. Dizziness - ICD9: 780.4, ICD10: R42 (primary diagnosis) Unclear if vertigo , concerning as new and different combined with elevated BP today-repeat was 190/90 on the BP machine. 2. Chronic diastolic CHF (congestive heart failure) (HCC) - ICD9: 428.32, 428.0, ICD10: I50.32 Refill - FUROSEMIDE 20 MG TABLET 3. BENIGN HYPERTENSION - ICD9: 401.1, ICD10: I10 - Uncontrolled - Recommend home blood pressure monitoring, to bring results to next visit - Encouraged sodium restriction, DASH or Mediterranean diet - Recommend regular aerobic exercise - LOSARTAN 100 MG TABLET - COMPLETE BLOOD COUNT AND DIFFERENTIAL - COMPREHENSIVE METABOLIC PANEL - THYROID STIMULATING HORMONE - VITAMIN B12 - IRON AND TIBC - FERRITIN - IMMUNOCHEMICAL FECAL OCCULT BLOOD TEST 4. Weight loss - ICD9: 783.21, ICD10: R63.4 Patient referred to ED for new dizziness and elevated BP - COMPLETE BLOOD COUNT AND DIFFERENTIAL - COMPREHENSIVE METABOLIC PANEL - VITAMIN B12 - IRON AND TIBC - FERRITIN - IMMUNOCHEMICAL FECAL OCCULT BLOOD TEST - URINALYSIS, WITH MICROSCOPIC 5. Fatigue, unspecified type - ICD9: 780.79, ICD10: R53.83 As above - COMPLETE BLOOD COUNT AND DIFFERENTIAL - COMPREHENSIVE METABOLIC PANEL - THYROID STIMULATING HORMONE - VITAMIN B12 - IRON AND TIBC - FERRITIN - IMMUNOCHEMICAL FECAL OCCULT BLOOD TEST - URINALYSIS, WITH MICROSCOPIC 6. History of anemia - ICD9: V12.3, ICD10: Z86.2 As above - VITAMIN B12 - IRON AND TIBC - FERRITIN Patient refuses 911/squad-strongly advised. Refused waiting for a family member to take patient to ED. Patient will drive himself to [facility] ED. Again, patient refuses against medical advice. The patient indicates understanding of these issues and agrees with the plan. Reviewed red flags and when to seek care sooner. Adrian Warner PA-C documented in this encounterVeterans Health Administration09-03-2024 Telephone encounter Note * Telephone Encounter - Perlita Tang LPN - 05/23/2024 12:12 PM EDT Pt saw Dr. Suhas STRAUSS today for what he thought was vertigo. He was told it is not vertigo and lowblood pressure. ENT did not take pt's blood pressure. Pt did not take his medication today. Pt was told by ENT to contact his pcp office to be seen and get this evaluated. Pt report was not able to give me any blood pressure readings and was on the road and could not take blood pressure now to giveme a reading. Pt's provider/team not available. Pt scheduled with a provider today 05-23-24. Perlita Tang LPN [facility]09-03-2024 Miscellaneous Notes* Telephone Encounter - Perlita Tang LPN - 05/23/2024 12:12 PM EDT Pt saw Dr. Suhas STRAUSS today for what he thought was vertigo. He was told it is not vertigo and lowblood pressure. ENT did not take pt's blood pressure. Pt did not take his medication today. Pt was told by ENT to contact his pcp office to be seen and get this evaluated. Pt report was not able to give me any blood pressure readings and was on the road and could not take blood pressure now to giveme a reading. Pt's provider/team not available. Pt scheduled with a provider today 05-23-24. Perlita Tang LPN documented in this encounterVeterans Health Administration07-19-2024 Telephone encounter Note * Telephone Encounter - Maribell Huston LPN - 04/07/2024 1:53 PM EDT Fax rec'd from Dr. Davis's office notifying pcp that pt cancelled 04/24/[address] Davis.Fax to pcp then to medical records for scanning. [facility]07-19-2024 Miscellaneous Notes* Telephone Encounter - Maribell Huston LPN - 04/07/2024 1:53 PM EDT Fax rec'd from Dr. Davis's office notifying pcp that pt cancelled 04/24/[address] Davis.Fax to pcp then to medical records for scanning. documented in this encounterVeterans Health Administration07-03-2024 Telephone encounter Note * Telephone Encounter - Shirley Corey - 03/22/2024 1:16 PM EDT Prescription Refill Information The patient has been identified by name and date of : Yes Caregiver verified no other encounters exist for this prescription request: Yes Caregiver confirmed with patient/requestor that no other refills are due, in the near future, with this provider at this time: Yes The last office visit in the department: 01/10/24 Does the patient have a future office visit with this provider/department: Yes Requested Prescriptions Pending Prescriptions Disp Refills hydrALAZINE (APRESOLINE) 100 mg tablet 90 tablet 5 Sig: Take 1 tablet by mouth three times a day. Shirley Mehta March 22, 2024 1:17 PM [facility]07-03-2024 Miscellaneous Notes* Telephone Encounter - Shirley Corey - 03/22/2024 1:16 PM EDT Prescription Refill Information The patient has been identified by name and date of : Yes Caregiver verified no other encounters exist for this prescription request: Yes Caregiver confirmed with patient/requestor that no other refills are due, in the near future, with this provider at this time: Yes The last office visit in the department: 01/10/24 Does the patient have a future office visit with this provider/department: Yes Requested Prescriptions Pending Prescriptions Disp Refills hydrALAZINE (APRESOLINE) 100 mg tablet 90 tablet 5 Sig: Take 1 tablet by mouth three times a day. Shirley Mehta March 22, 2024 1:17 PM documented in this encounterVeterans Health Administration06-22-2024 History of Present illness Narrative* Prema Agee APRN.SHAWNA - 03/11/2024 11:35 AM EDT This note was created using NoteWriter. Subjective Leana Camejo is a 84 year old male. HPI c/o continued right shoulder pain since January. She was treated previously with steroid and did get relief for the pain at that time. He does have appts with ortho and an arthritis provider Review of Systems Musculoskeletal: Right shoulder pain Objective BP 152/78 Pulse 67 Temp 36.1 C (97 F) Resp 18 Wt 74.6 kg (164 lb 7.4 oz) SpO2 97% BMI 25.01 kg/m Physical Exam Musculoskeletal: Comments: Slight limitation of ROM with the right shoulder, movement does make the pain worse. Assessment and Plan ASSESSMENT/PLAN: 1. Chronic right shoulder pain - ICD9: 719.41, 338.29, ICD10: M25.511, G89.29 Prednisone taper ordered Prema Agee APRN.CNP Medical Decision Making: Problems: Low: Acute, uncomplicated illness or injury Risk: Moderate: Drug management Medical Decision Making Level: 3 - Low documented in this encounterVeterans Health Administration06-18-2024 History of Present illness Narrative* Fide Goff RN - 03/07/2024 4:49 PM EDT CDM Telephonic Outreach Provider Action/FYI CDM: CHF, CKD Pt denies symptom changes, concerns or needs SDH, Goals updated Contacted for: Goals/Falls/ADL Update Contact made with patient: Yes Patient identified by name and date of . Discussed care with: patient Are you experiencing any new or worsening symptoms you need to talk about today? No Disease Specific Do you check your blood pressure at home? Yes, Enter readings: Not available Do you have new or worsening shortness of breath with activity? No Do you have new or worsening trouble breathing while lying flat? No Do you have new or worsening swelling of legs, feet or ankles? No Do you feel like you are dehydrated for any reason, including not being able to eat or drink normally, or having less urine/much darker urine than normal for you? No Do you check your daily weight at home? Yes, Have you noticed a sudden gain in weight greater than three pounds in a day or three pounds in a week? Yes Based on assessment nurse practitioner, the following disposition is advised: No symptoms or symptoms present, not severe. Routed to: No Action Needed PAVEL Education Provided this Outreach: No Fide Goff RN March 07, 2024 4:54 PM documented in this encounterV[facility]06-17-2024 Telephone encounter Note * Telephone Encounter - Cathleen Ortega - 03/06/2024 9:00 AM EDT Prescription Refill Information The patient has been identified by name and date of : Yes Caregiver verified no other encounters exist for this prescription request: Yes Caregiver confirmed with patient/requestor that no other refills are due, in the near future, with this provider at this time: Yes The last office visit in the department: 03-04-23 Does the patient have a future office visit with this provider/department: Yes Requested Prescriptions Pending Prescriptions Disp Refills ezetimibe (ZETIA) 10 mg tablet 90 tablet 3 Sig: Take 1 tablet by mouth once daily. Cathleen Mehta March 06, 2024 9:00 AM [facility] Miscellaneous Notes* Telephone Encounter - Cathleen Ortega - 03/06/2024 9:00 AM EDT Prescription Refill Information The patient has been identified by name and date of : Yes Caregiver verified no other encounters exist for this prescription request: Yes Caregiver confirmed with patient/requestor that no other refills are due, in the near future, with this provider at this time: Yes The last office visit in the department: 03-04-23 Does the patient have a future office visit with this provider/department: Yes Requested Prescriptions Pending Prescriptions Disp Refills ezetimibe (ZETIA) 10 mg tablet 90 tablet 3 Sig: Take 1 tablet by mouth once daily. Cathleen Tang [facility] March 06, 2024 9:00 AM documented in this encounterVeterans Health Administration06-17-2024 Telephone encounter Note * Telephone Encounter - Adriana Short LPN - 03/06/2024 8:56 AM EDT Patient calling asking to have referral faxed to Dr Flaherty office at [phone]. Patient said his shoulder pain is bothering him quite a lot. Printed office notes, insurance card copies, face sheet, xray reports, consult and faxed as requested. Patient said he has appt in April. [facility]06-[facility] Miscellaneous Notes* Telephone Encounter - Adriana Short LPN - 03/06/2024 8:56 AM EDT Patient calling asking to have referral faxed to Dr Flaherty office at [phone]. Patient said his shoulder pain is bothering him quite a lot. Printed office notes, insurance card copies, face sheet, xray reports, consult and faxed as requested. Patient said he has appt in April. documented in this encounterVeter[facility]06-11-2024 Telephone encounter Note * Telephone Encounter - Shahana Delgado LPN - 02/29/2024 2:53 PM EDT Pt calls to request shoulder xray results and insurance cards be faxed to [facility] in [facility]. Faxed to: [phone] as requested. Shahana Delgado LPN [facility]06-[facility]24 Miscellaneous Notes* Telephone Encounter - Shahana Delgado LPN - 02/29/2024 2:53 PM EDT Pt calls to request shoulder xray results and insurance cards be faxed to [facility] in [facility]. Faxed to: [phone] as requested. Shahana Delgado LPN documented in this encounterVeterans Health Administration05-23-2024 Telephone encounter Note * Telephone Encounter - Damir Summers MA - 02/10/2024 9:12 AM EDT Requested Prescriptions Pending Prescriptions Disp Refills carvedilol (COREG) 12.5 mg tablet 180 tablet 3 Sig: Take 1 tablet by mouth two times a day with meals. Date of last office visit in primary care: 01/10/2024 Date of next office visit in primary care: 08/14/2024 Please advise. Thank you. Damir Summers MA. [facility]05-[facility]-2024 Miscellaneous Notes* Telephone Encounter - Damir Summers MA - 02/10/2024 9:12 AM EDT Requested Prescriptions Pending Prescriptions Disp Refills carvedilol (COREG) 12.5 mg tablet 180 tablet 3 Sig: Take 1 tablet by mouth two times a day with meals. Date of last office visit in primary care: 01/10/2024 Date of next office visit in primary care: 08/14/2024 Please advise. Thank you. Damir Summers MA. * Telephone Encounter - Lorena Kimbrough - 02/10/2024 8:57 AM EDT Patient has been identified by name and date of : Patient phones for refill(s): Requested Prescriptions Pending Prescriptions Disp Refills carvedilol (COREG) 12.5 mg tablet 180 tablet 3 Sig: Take 1 tablet by mouth two times a day with meals. Date of last office visit in primary care: 08/26/2017 Date of next office visit in primary care: Visit date not found Please advise. Thank you. Lorena Kimbrough. documented in this encounterVeter[facility] Health Administration05-23-2024 Telephone encounter Note * Telephone Encounter - Lorena Kimbrough - 02/10/2024 8:57 AM EDT Patient has been identified by name and date of : Patient phones for refill(s): Requested Prescriptions Pending Prescriptions Disp Refills carvedilol (COREG) 12.5 mg tablet 180 tablet 3 Sig: Take 1 tablet by mouth two times a day with meals. Date of last office visit in primary care: 08/26/2017 Date of next office visit in primary care: Visit date not found Please advise. Thank you. Lorena Kimbrough. [facility]05-[facility] History of Present illness Narrative* Ayla Carrasquillo PA-C - 02/09/2024 5:09 PM EDT This note was created using VitaPortalriter. Subjective Leana Camejo is a 84 year old male. HPI Presents with a chief complaint of bilateral shoulder pain over the past 2 weeks. He states has been keeping him up at night. He states when he lays on 1 shoulder or the other it is very painful. He has tried some Tylenol [id number]. No injury to his shoulders. He states he is able to move his shoulder still just painful to lay on. Does not typically have shoulder pain. He was requesting cortisone injections. Review of Systems Constitutional: Negative. HENT: Negative. Respiratory: Negative. Cardiovascular: Negative. Gastrointestinal: Negative. Musculoskeletal: Bilateral shoulder pain All other systems reviewed and are negative. PAST MEDICAL HISTORY Diagnosis Date Abdominal aortic aneurysm (AAA) without rupture ([facility]) 08/26/201708/2017: 3.7 cm Anemia Chronic diastolic CHF (congestive heart failure) ([facility]) 10/20/[address] Montes CKD (chronic kidney disease) stage 3, GFR 30-59 ml/min ([facility]) 02/20/2014 Collagenous colitis 02/04/2023 COVID-19 09/12/2021 DDD (degenerative disc disease), lumbar 08/26/2017 Diarrhea Diverticulosis of colon (without mention of hemorrhage) Hematoma of right iliopsoas muscle 06/21/2019 Internal hemorrhoids without mention of complication Lumbar radiculopathy 08/26/2017 Mixed hyperlipidemia Hyperlipidemia S/P carotid endarterectomy right 01/20/2021 Unspecified essential hypertension Essential hypertension Current Outpatient Medications Medication Sig Dispense Refill ascorbic acid, vitamin C, 500 mg cap DAILY ferrous sulfate (FEOSOL) 325 mg (65 mg iron) tablet Take 325 mg by mouth once daily. TURMERIC ORAL Take by mouth. ubidecarenone/vitamin E mixed (COQ10 SG 100 ORAL) Take by mouth. levOCARNitine (L-CARNITINE) 500 mg capsule Take 500 mg by mouth. Zinc Gluconate 50 mg tablet Take 50 mg by mouth once daily. doxazosin (CARDURA) 8 mg tablet Take 1 tablet by mouth daily at bedtime. 90 tablet 3 hydrALAZINE (APRESOLINE) 100 mg tablet Take 1 tablet by mouth three times a day. 90 tablet 5 ezetimibe (ZETIA) 10 mg tablet Take 1 tablet by mouth once daily. 30 tablet 5 losartan (COZAAR) 100 mg tablet Take 1 tablet by mouth once daily. 90 tablet 3 furosemide (LASIX) 20 mg tablet Take 1 tablet by mouth once daily. 90 tablet 3 carvedilol (COREG) 12.5 mg tablet Take 1 tablet by mouth twice daily with meals. 180 tablet 3 triamcinolone acetonide (KENALOG) 0.1 % cream DESENEX 2 % powder apply to THE GROIN AREA twice a day glucosamine/chondr rich A sod (OSTEO BI-FLEX ORAL) Take 2 tablets by mouth once daily. Magnesium 200 mg tab Take 400 mg by mouth once daily. Garlic 1,000 mg cap Take 1 capsule by mouth once daily. Cholecalciferol, Vitamin D3, 25 mcg (1,000 unit) cap Take 5,000 Units by mouth once daily. multivit-minerals/FA/lycopene (ONE-A-DAY MEN'S ORAL) Take 1 tablet by mouth once daily. vitamin b complex (B COMPLETE) tab Take 1 tablet by mouth once daily. 0 predniSONE (DELTASONE) 20 mg tablet Take 2 tablets by mouth once daily for 5 days. 10 tablet 0 No current facility-administered medications for this visit. Facility-Administered Medications Ordered in Other Visits Medication Dose Route Frequency Provider Last Rate Last Admin lidocaine (PF) 10 mg/mL (1 %) 1-2 mg injection (XYLOCAINE) 0.1-0.2 mL INTRADERMAL PRN Lisa Rodriguez MD lactated ringers iv infusion 30 mL/hr INTRAVENOUS CONTINUOUS Lisa Rodriguez MD PAST SURGICAL HISTORY Procedure Laterality Date ARTHRP ACETBLR/PROX FEM PROSTC AGRFT/ALGRFT 08/02/2006 Hip replacement, total, Right BLEPHAROPLASTY, UPPER EYELID 2012 CAROTID ENDARTERECTOMY Right 01/20/2021 w/ bovine patch angioplasty COLONOSCOPY - DIAGNOSTIC 01/15/2023 collagenous colitis, int hemorrhoids COLONOSCOPY FLX DX W/COLLJ SPEC WHEN PFRMD 03/18/2001 anemia COLONOSCOPY FLX DX W/COLLJ SPEC WHEN PFRMD 05/13/2010 repeat 10 yrs COLONOSCOPY FLX DX W/COLLJ SPEC WHEN PFRMD 05/21/2020 Colonoscopy ENTEROLSS FRING INTSTINAL ADHESION SPX 07/29/2015 ESOPHAGOGASTRODUODENOSCOPY TRANSORAL DIAGNOSTIC 03/18/2001 anemia ESOPHAGOGASTRODUODENOSCOPY TRANSORAL DIAGNOSTIC 05/21/2020 EGD I&D HEMATOMA Right 07/19/2019 CT guided aspiration, iliopsoas hematoma IR AAA ENDO REPAIR 2 LIMB 04/07/2023 AAA stent graft repair, [facility] LAPAROSCOPY SURG RPR INITIAL INGUINAL HERNIA 07/29/2015 LAPS RPR RECURRENT INCISIONAL HERNIA REDUCIBLE 07/29/2015 PAST SURGICAL HISTORY OF 09/09/2015 left total knee arthroplasty PAST SURGICAL HISTORY OF 09/15/2017 micro-disectomy L4-L5, with microcompression bilaterally. PAST SURGICAL HISTORY OF Right 12/16/2018 Repair of complex lateral meniscus tear, Right knee REPAIR UMBILICAL HERNIA 1980 Dr. Henry STRESS TEST 09/03/2017 normal FAMILY HISTORY Problem Relation Age of Onset Cancer Mother oral Cancer Father Lymphnode, Lung, Liver other (brain tumor) Other Social History Tobacco Use Smoking status: Former Packs/day: 1.00 Years: 2.00 Additional pack years: 0.00 Total pack years: 2.00 Types: Cigarettes Quit date: 09/20/1964 Years since quittin.4 Smokeless tobacco: Never Vaping Use Vaping Use: Never used Substance Use Topics Alcohol use: No Drug use: No Objective BP 124/80 Pulse (!) 58 Temp 36.5 C (97.7 F) (Tympanic) Resp 16 Wt 75.8 kg (167 lb 1.7 oz) SpO2 95% BMI 25.41 kg/m Physical Exam Vitals reviewed. Constitutional: Appearance: Normal appearance. HENT: Head: Normocephalic and atraumatic. Musculoskeletal: Comments: Of the left and right shoulder reveals no tenderness on palpation. No erythema or swelling. He does have full range of motion. Strength is 4/5 bilaterally. Radial pulses 2+. Skin: General: Skin is warm and dry. Neurological: Mental Status: He is alert. Assessment and Plan ASSESSMENT/PLAN: 1. Acute pain of both shoulders - ICD9: 719.41, ICD10: M25.511, M25.512 X-rays show degenerative changes of both shoulders of the glenohumeral joint and AC joints. Patienthas tried Tylenol without relief, he is not good candidate for NSAIDs due to history of kidney disease. I will place him on 5 days of prednisone. Follow-up with orthopedics if not improving. Did discuss that we do not do joint injections here, if that something he would like to speak with a specialist about he would need to see orthopedics. - XR SHOULDER GENERAL 3V OR MORE AP/TRUE AP/OTHER RIGHT - XR SHOULDER GENERAL 3V OR MORE AP/TRUE AP/OTHER LEFT Ayla Carrasquillo PA-C documented in this encounterVeterans Health Administration05-22-2024 History of Present illness Narrative* Kae Alexander RT(R) - 02/09/2024 4:40 PM EDT Radiology Service Progress Note PATIENT NAME: Leana Camejo DATE OF SERVICE: February 09, 2024 TIME: 4:32 PM PATIENT IDENTITY VERIFICATION COMPLETED USING TWO (2) IDENTIFIERS: Name and Date of confirmedby patient verbally. FALL SCREENING: Has the patient had 2 falls in the last year or 1 fall with injury or currently using an Ambulatory Assistive Device (Walker, Cane, Wheelchair, Crutches, etc.)? No PATIENT GENDER DATA: Male PATIENT RELEVANT IMPLANT DATA REVIEWED: Yes PATIENT PRESENTS WITH AN IMPLANTABLE OR ATTACHED PRODUCTION UTILITY WORKER: No RADIOLOGY DEPARTMENT: General X-ray: Exam(s) Completed: Upper Extremity X- Ray(s): Shoulder, AP / TRUE AP bilateral Scapular Y view PERIPHERAL IV DATA: Not applicable SIGNED BY: RT Warner(R) February 09, 2024 4:32 PM documented in this encounterVeterans Health Administration04-29-2024 History of Present illness Narrative* Shaun Kowalski MD - 01/17/2024 8:30 AM EDT Images from the original note were not included. [facility] [place] DEPARTMENT OF VASCULAR SURGERY OUTPATIENT VISIT DATE January 17, 2024 OUTPATIENT VISIT TYPE CONSULTATION SERVICE DATE: 01/17/2024 SERVICE TIME: 8:30 AM PRIMARY CARE PHYSICIAN: Dallas Reed MD REFERRING PROVIDER: Omid Perez Consult requested for an opinion regarding the evaluation and treatment of the above. My final impression and recommendations will be communicated back to the requesting physician by way of the shared medical record or letter via US mail. CHIEF COMPLAINT: Abdominal aortic aneurysm HISTORY OF PRESENT ILLNESS: Vascular consultation at the request of Dr. Omid Perez. A copy of this consultation note will be provided to the requesting physician by way of shared Medical record or letter to requesting physician via US mail. Mr. Camejo is a 84 year old male who is seen today for abdominal aortic aneurysm he had an EVAR done by Dr. 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 He has had a prior right carotid endarterectomy. We had sent to us some CAT scans 1 done on 05/26/2023 and 1 on 12/27/2023 which shows a stable aortic diameter with a proximal type II endoleak. His aortic diameter is approximately 5 cm in size. To 5.1CM . The patient says it still has a continued leak. He came without any records or imaging. PAST MEDICAL HISTORY Diagnosis Date Abdominal aortic aneurysm (AAA) without rupture ([facility]) 08/26/201708/2017: 3.7 cm Anemia Chronic diastolic CHF (congestive heart failure) ([facility]) 10/20/[address] Montes CKD (chronic kidney disease) stage 3, GFR 30-59 ml/min ([facility]) 02/20/2014 Collagenous colitis 02/04/2023 COVID-19 09/12/2021 DDD (degenerative disc disease), lumbar 08/26/2017 Diarrhea Diverticulosis of colon (without mention of hemorrhage) Hematoma of right iliopsoas muscle 06/21/2019 Internal hemorrhoids without mention of complication Lumbar radiculopathy 08/26/2017 Mixed hyperlipidemia Hyperlipidemia S/P carotid endarterectomy right 01/20/2021 Unspecified essential hypertension Essential hypertension PAST SURGICAL HISTORY Procedure Laterality Date ARTHRP ACETBLR/PROX FEM PROSTC AGRFT/ALGRFT 08/02/2006 Hip replacement, total, Right BLEPHAROPLASTY, UPPER EYELID 2013 CAROTID ENDARTERECTOMY Right 01/20/2021 w/ bovine patch angioplasty COLONOSCOPY - DIAGNOSTIC 01/15/2023 collagenous colitis, int hemorrhoids COLONOSCOPY FLX DX W/COLLJ SPEC WHEN PFRMD 03/18/2001 anemia COLONOSCOPY FLX DX W/COLLJ SPEC WHEN PFRMD 05/13/2010 repeat 10 yrs COLONOSCOPY FLX DX W/COLLJ SPEC WHEN PFRMD 05/21/2020 Colonoscopy ENTEROLSS FRING INTSTINAL ADHESION SPX 07/29/2015 ESOPHAGOGASTRODUODENOSCOPY TRANSORAL DIAGNOSTIC 03/18/2001 anemia ESOPHAGOGASTRODUODENOSCOPY TRANSORAL DIAGNOSTIC 05/21/2020 EGD I&D HEMATOMA Right 07/19/2019 CT guided aspiration, iliopsoas hematoma IR AAA ENDO REPAIR 2 LIMB 04/07/2023 AAA stent graft repair, [facility] LAPAROSCOPY SURG RPR INITIAL INGUINAL HERNIA 07/29/2015 LAPS RPR RECURRENT INCISIONAL HERNIA REDUCIBLE 07/29/2015 PAST SURGICAL HISTORY OF 09/09/2015 left total knee arthroplasty PAST SURGICAL HISTORY OF 09/15/2017 micro-disectomy L4-L5, with microcompression bilaterally. PAST SURGICAL HISTORY OF Right 12/16/2018 Repair of complex lateral meniscus tear, Right knee REPAIR UMBILICAL HERNIA 1980 Dr. Henry STRESS TEST 09/03/2017 normal SOCIAL HISTORY: Social History Tobacco Use Smoking status: Former Packs/day: 1.00 Years: 2.00 Additional pack years: 0.00 Total pack years: 2.00 Types: Cigarettes Quit date: 09/20/1964 Years since quittin.3 Smokeless tobacco: Never Vaping Use Vaping Use: Never used Substance Use Topics Alcohol use: No Drug use: No FAMILY HISTORY Problem Relation Age of Onset Cancer Mother oral Cancer Father Lymphnode, Lung, Liver other (brain tumor) Other MEDICATIONS: ascorbic acid, vitamin C, 500 mg cap^DAILY^Disp: ^Rfl: ferrous sulfate (FEOSOL) 325 mg (65 mg iron) tablet^Take 325 mg by mouth once daily.^Disp: ^Rfl: TURMERIC ORAL^Take by mouth.^Disp: ^Rfl: ubidecarenone/vitamin E mixed (COQ10 SG 100 ORAL)^Take by mouth.^Disp: ^Rfl: levOCARNitine (L-CARNITINE) 500 mg capsule^Take 500 mg by mouth.^Disp: ^Rfl: Zinc Gluconate 50 mg tablet^Take 50 mg by mouth once daily.^Disp: ^Rfl: doxazosin (CARDURA) 8 mg tablet^Take 1 tablet by mouth daily at bedtime.^Disp: 90 tablet^Rfl: 3 hydrALAZINE (APRESOLINE) 100 mg tablet^Take 1 tablet by mouth three times a day.^Disp: 90 tablet^Rfl: 5 ezetimibe (ZETIA) 10 mg tablet^Take 1 tablet by mouth once daily.^Disp: 30 tablet^Rfl: 5 losartan (COZAAR) 100 mg tablet^Take 1 tablet by mouth once daily.^Disp: 90 tablet^Rfl: 3 furosemide (LASIX) 20 mg tablet^Take 1 tablet by mouth once daily.^Disp: 90 tablet^Rfl: 3 carvedilol (COREG) 12.5 mg tablet^Take 1 tablet by mouth twice daily with meals.^Disp: 180 tablet^Rfl: 3 DESENEX 2 % powder^apply to THE GROIN AREA twice a day^Disp: ^Rfl: glucosamine/chondr rich A sod (OSTEO BI-FLEX ORAL)^Take 2 tablets by mouth once daily.^Disp: ^Rfl: Magnesium 200 mg tab^Take 400 mg by mouth once daily.^Disp: ^Rfl: Garlic 1,000 mg cap^Take 1 capsule by mouth once daily.^Disp: ^Rfl: Cholecalciferol, Vitamin D3, 25 mcg (1,000 unit) cap^Take 5,000 Units by mouth once daily. ^Disp: ^Rfl: multivit-minerals/FA/lycopene (ONE-A-DAY MEN'S ORAL)^Take 1 tablet by mouth once daily.^Disp: ^Rfl: vitamin b complex (B COMPLETE) tab^Take 1 tablet by mouth once daily.^Disp: ^Rfl: 0 triamcinolone acetonide (KENALOG) 0.1 % cream^apply to AFFECTED AREAS OF THE UPPER EXTREMITIES TWICE DAILY FOR ... (REFER TO PRESCRIPTION NOTES).^Disp: ^Rfl: (Patient not taking: Reported on 01/17/2024) ALLERGIES: ALLERGIES Allergen Reactions Clonidine Crestor [Rosuvastat* Lipitor [Atorvastat* Lisinopril Rash Statins [Statins-Hm* REVIEW of SYSTEM: Constitutional: No weight loss, malaise or fevers. HEENT: Negative for frequent or significant headaches Respiratory: Negative for cough, wheezing, some chronic shortness of breath Cardiovascular: Negative for chest pain, leg swelling or palpitations Gatrointestinal: Negative for abdominal discomfort, blood in stools or black stools or change in bowel habits Genitourinary: No history of dysuria, frequency, or incontinence Musculoskeletal: Negative for joint pain or swelling, back pain or muscle pain Endocrine: Negative for cold or heat intolerance, polyuria, polydipsia and goiter Hematology/Lymphatic: Negative for prolonged bleeding, bruising easily or swollen nodes Neurologic: No history or headaches, syncope, paralysis, seizures or tremors Integumentary: Negative for lesions, rash, and itching. PHYSICAL EXAM: VITALS: BP 141/85 Pulse 63 Temp (Src) 97.1 (Oral) Resp 18 Ht 5' 8 (1.73m) Wt 166 lb 8 oz(75.5kg) SpO2 97% BMI 25.32 kg/(m^2). General: WDWN in NAD Skin: No lesions; normal color, turgor HEENT: NCAT PERRLA EOMI No icterus or adenopathy Carotid: bruits NONE Pulmonary: Clear to percussion and auscultation Coronary: Normal S1, S2; no murmurs, rubs or gallops Abdomen: No organomegaly, normal bowel sounds, non-tender Extremities: Normal range of motion, no edema or ulceration Vascular: 2+ Pulses throughout carotid, brachial radial, femoral, popliteal, PT, DP Neurologic: Awake, alert and oriented. Normal and symmetrical M/S function. Diagnostic tests reviewed for today's visit: Most recent imaging IMPRESSION: Mr. Camejo is a 84 year old male status post EVAR with proximal type II endoleak without significant aneurysmal growth. PLAN and RECOMMENDATIONS: There are current no indications for treatment and recommend imaging in 1 years time. Most recent carotid ultrasound shows his carotid is still patent. He can continue to follow-up locally with Dr. Perez SIGNATURE: Shaun Kowalski MD PATIENT NAME: Leana Camejo DATE: January 17, 2024 TIME: 8:30 AM documented in this encounterVeterans Health Administration04-22-2024 Instructions* Patient Instructions* Darya Borden, TECHNICAL TRAINING SPECIALIST.RIDDLER OPERATOR - 01/10/2024 9:12 AM EDT Fluticasone (Flonase) nasal spray documented in this encounterVeterans Health Administration04-22-2024 History of Present illness Narrative* Darya Borden APRN.SHAWNA - 01/10/2024 9:00 AM EDT CC: Patient presents with: F/U 3 Month HPI Leana Camejo is a 84 year old male who presents today for above. Rhinitis: runny nose and nasal congestion for a month, first noticed when he started mowing his lawn again. Denies fever, chills, purulent nasal discharge, itchy/watery eyes, cough. Using saline nasal spray without much relief. HTN-Medication changes:No Taking all medications as prescribed: Yes Side effects: No Home BP's: Yes 120's/70's Denies: headache, chest pain, palpitations, dyspnea, and peripheral edema. Last 3 Encounter BP Readings: Date: BP: 01/10/2024 112/72 08/10/2023 122/74 04/16/2023 146/70 CHF. Breathing ability and energy level same since he was last seen . He has no fatigue or dyspnea with ADL's and no edema. He sleeps on 1 pillow for comfort. Denies PND, weight gain and orthopnea. Last Echo EF: LV Ejection Fraction (%) Date Value 12/23/2005 65 Abdominal aneurysm: endoleak of aortagraft per latest scan. Referred to [facility] in [place]. Review of Systems See HPI PAST MEDICAL HISTORY Diagnosis Date Abdominal aortic aneurysm (AAA) without rupture ([facility]) 08/26/201708/2017: 3.7 cm Anemia Chronic diastolic CHF (congestive heart failure) ([facility]) 10/20/[address] Montes CKD (chronic kidney disease) stage 3, GFR 30-59 ml/min ([facility]) 02/20/2014 Collagenous colitis 02/04/2023 COVID-19 09/12/2021 DDD (degenerative disc disease), lumbar 08/26/2017 Diarrhea Diverticulosis of colon (without mention of hemorrhage) Hematoma of right iliopsoas muscle 06/21/2019 Internal hemorrhoids without mention of complication Lumbar radiculopathy 08/26/2017 Mixed hyperlipidemia Hyperlipidemia S/P carotid endarterectomy right 01/20/2021 Unspecified essential hypertension Essential hypertension PAST SURGICAL HISTORY Procedure Laterality Date ARTHRP ACETBLR/PROX FEM PROSTC AGRFT/ALGRFT 08/02/2006 Hip replacement, total, Right BLEPHAROPLASTY, UPPER EYELID 2013 CAROTID ENDARTERECTOMY Right 01/20/2021 w/ bovine patch angioplasty COLONOSCOPY - DIAGNOSTIC 01/15/2023 collagenous colitis, int hemorrhoids COLONOSCOPY FLX DX W/COLLJ SPEC WHEN PFRMD 03/18/2001 anemia COLONOSCOPY FLX DX W/COLLJ SPEC WHEN PFRMD 05/13/2010 repeat 10 yrs COLONOSCOPY FLX DX W/COLLJ SPEC WHEN PFRMD 05/21/2020 Colonoscopy ENTEROLSS FRING INTSTINAL ADHESION SPX 07/29/2015 ESOPHAGOGASTRODUODENOSCOPY TRANSORAL DIAGNOSTIC 03/18/2001 anemia ESOPHAGOGASTRODUODENOSCOPY TRANSORAL DIAGNOSTIC 05/21/2020 EGD I&D HEMATOMA Right 07/19/2019 CT guided aspiration, iliopsoas hematoma IR AAA ENDO REPAIR 2 LIMB 04/07/2023 AAA stent graft repair, [facility] LAPAROSCOPY SURG RPR INITIAL INGUINAL HERNIA 07/29/2015 LAPS RPR RECURRENT INCISIONAL HERNIA REDUCIBLE 07/29/2015 PAST SURGICAL HISTORY OF 09/09/2015 left total knee arthroplasty PAST SURGICAL HISTORY OF 09/15/2017 micro-disectomy L4-L5, with microcompression bilaterally. PAST SURGICAL HISTORY OF Right 12/16/2018 Repair of complex lateral meniscus tear, Right knee REPAIR UMBILICAL HERNIA 1980 Dr. Henry STRESS TEST 09/03/2017 normal ALLERGIES Clonidine, Crestor [Rosuvastatin Calcium], Lipitor [Atorvastatin Calcium], Lisinopril, and Statins [Uxfhptr-Imw-Ngv Reductase Inhibitors] MEDICATIONS ascorbic acid, vitamin C, 500 mg cap^DAILY^Disp: ^Rfl: ferrous sulfate (FEOSOL) 325 mg (65 mg iron) tablet^Take 325 mg by mouth once daily.^Disp: ^Rfl: TURMERIC ORAL^Take by mouth.^Disp: ^Rfl: ubidecarenone/vitamin E mixed (COQ10 SG 100 ORAL)^Take by mouth.^Disp: ^Rfl: levOCARNitine (L-CARNITINE) 500 mg capsule^Take 500 mg by mouth.^Disp: ^Rfl: Zinc Gluconate 50 mg tablet^Take 50 mg by mouth once daily.^Disp: ^Rfl: doxazosin (CARDURA) 8 mg tablet^Take 1 tablet by mouth daily at bedtime.^Disp: 90 tablet^Rfl: 3 hydrALAZINE (APRESOLINE) 100 mg tablet^Take 1 tablet by mouth three times a day.^Disp: 90 tablet^Rfl: 5 ezetimibe (ZETIA) 10 mg tablet^Take 1 tablet by mouth once daily.^Disp: 30 tablet^Rfl: 5 losartan (COZAAR) 100 mg tablet^Take 1 tablet by mouth once daily.^Disp: 90 tablet^Rfl: 3 furosemide (LASIX) 20 mg tablet^Take 1 tablet by mouth once daily.^Disp: 90 tablet^Rfl: 3 carvedilol (COREG) 12.5 mg tablet^Take 1 tablet by mouth twice daily with meals.^Disp: 180 tablet^Rfl: 3 triamcinolone acetonide (KENALOG) 0.1 % cream^apply to AFFECTED AREAS OF THE UPPER EXTREMITIES TWICE DAILY FOR ... (REFER TO PRESCRIPTION NOTES).^Disp: ^Rfl: DESENEX 2 % powder^apply to THE GROIN AREA twice a day^Disp: ^Rfl: glucosamine/chondr rich A sod (OSTEO BI-FLEX ORAL)^Take 2 tablets by mouth once daily.^Disp: ^Rfl: Magnesium 200 mg tab^Take 400 mg by mouth once daily.^Disp: ^Rfl: Garlic 1,000 mg cap^Take 1 capsule by mouth once daily.^Disp: ^Rfl: Cholecalciferol, Vitamin D3, 25 mcg (1,000 unit) cap^Take 5,000 Units by mouth once daily. ^Disp: ^Rfl: multivit-minerals/FA/lycopene (ONE-A-DAY MEN'S ORAL)^Take 1 tablet by mouth once daily.^Disp: ^Rfl: vitamin b complex (B COMPLETE) tab^Take 1 tablet by mouth once daily.^Disp: ^Rfl: 0 FAMILY HISTORY Problem Relation Age of Onset Cancer Mother oral Cancer Father Lymphnode, Lung, Liver other (brain tumor) Other Social History Tobacco Use Smoking status: Former Packs/day: 1.00 Years: 2.00 Additional pack years: 0.00 Total pack years: 2.00 Types: Cigarettes Quit date: 09/20/1964 Years since quittin.3 Smokeless tobacco: Never Vaping Use Vaping Use: Never used Substance Use Topics Alcohol use: No Drug use: No BP 112/72 Pulse 61 Resp 18 Wt 74.8 kg (165 lb) BMI 25.09 kg/m Physical Exam Vitals reviewed. Constitutional: Appearance: Normal appearance. Cardiovascular: Rate and Rhythm: Normal rate and regular rhythm. Pulses: Normal pulses. Pulmonary: Effort: Pulmonary effort is normal. Breath sounds: Normal breath sounds. No wheezing, rhonchi or rales. Skin: General: Skin is warm and dry. Neurological: Mental Status: He is alert. Psychiatric: Mood and Affect: Mood normal. Health maintenance reviewed with patient: Advance Directive Discussion due on 09/20/2023 Behavioral Health Screening Never done DTaP,Tdap,Td Vaccine(1 - Tdap) due on 08/10/2024 RSV Vaccine(1 - 1-dose 60+ series) due on 08/10/2024 Shingrix Vaccine(2 of 3) due on 08/10/2024 Covid-19 Vaccine( - 2022- season) due on 08/10/2024 Influenza Vaccine(Season Ended) due on 05/21/2024 Diabetes Screening due on 08/30/2026 Pneumococcal Vaccine: 65+ Completed DATA REVIEWED: Most recent labs ASSESSMENT/PLAN: 1. Primary hypertension - ICD9: 401.9, ICD10: I10 (primary diagnosis) - Controlled - Continue current medications - Recommend home blood pressure monitoring, to bring results to next visit - Encouraged sodium restriction, DASH or Mediterranean diet 2. Allergic rhinitis, unspecified seasonality, unspecified trigger - ICD9: 477.9, ICD10: J30.9 Start Flonase nasal spray. Follow-up as needed if no improvement 3. Chronic diastolic CHF (congestive heart failure) (HCC) - ICD9: 428.32, 428.0, ICD10: I50.32 Stable 4. Stage 3a chronic kidney disease (HCC) - ICD9: 585.3, ICD10: N18.31 - eGFR: 48 Stable - Counseled on avoiding NSAIDs, adequate hydration - Counseled on low sodium diet 5. Other hyperlipidemia - ICD9: 272.4, ICD10: E78.49 Intolerant to multiple statins. Started on Zetia in August without side effects. Continue as prescribed 6. Abdominal aortic aneurysm (AAA) without rupture, unspecified part (HCC) - ICD9: 441.4, ICD10: I71.40 Follow-up with vascular at [facility] as scheduled Prescription instructions reviewed with patient as applicable. Potential red flag symptoms discussed with the patient. Reviewed appropriate action plan to take if red flag symptoms occur. Patient agreeable to treatment plan. Darya Borden APRN.RIDDLER OPERATOR documented in this encounterV[facility]04-22-2024 Nurse Note* Damir Summers MA - 01/10/2024 8:59 AM EDT 01/10/2024: Home BP Cuff Validated. Home BP: 127/58 Office BP: 112/72 [facility]04[facility] Note* Damir Summers MA - 01/10/2024 8:59 AM EDT 01/10/2024: Home BP Cuff Validated. Home BP: 127/58 Office BP: 112/72 documented in this encounterVeter[facility] Health Administration04-12-2024 Miscellaneous Notes* Telephone Encounter - Yulisa Minaya - 12/31/2023 9:26 AM EDT Referring Physician - Omid Perez MD Requesting Physician - Dr. Shaun Kowalski Diagnosis: Aneurysm of Iliac Artery Images have been pushed electronically and records. documented in this encounterVeter[facility]03-10-2024 History of Present illness Narrative* Fide Goff RN - 11/28/2023 4:05 PM EDT Patient requesting refills as follows: Office Staff: Please contact Pt directly with any advisement Requested Prescriptions Pending Prescriptions Disp Refills doxazosin (CARDURA) 8 mg tablet 90 tablet 3 Sig: Take 1 tablet by mouth daily at bedtime. Fide Goff RN November 28, 2023 4:07 PM * Fide Goff RN - 11/28/2023 3:55 PM EDT CDM Telephonic Outreach Provider Action/FYI CDM: CHF, CKD Pt denies symptom concerns, is requesting doxazosin SDH Food, Transportation updated Contacted for: Goals/Falls/ADL Update Contact made with patient: Yes Patient identified by name and date of . Discussed care with: patient Goal Setting I would like to take some time today to discuss your personal health goals. Yes, patient has goals. Capture the goal the patient wants to accomplish: Prevent Complications Does the goal align with programs offered at the [facility]? ADL's updated: No Are you experiencing any new or worsening symptoms you need to talk about today? No Disease Specific Do you check your blood pressure at home? Do you have new or worsening shortness of breath with activity? No Do you have new or worsening trouble breathing while lying flat? No Do you have new or worsening swelling of legs, feet or ankles? No Do you feel like you are dehydrated for any reason, including not being able to eat or drink normally, or having less urine/much darker urine than normal for you? No Do you check your daily weight at home? Yes, Have you noticed a sudden gain in weight greater than three pounds in a day or three pounds in a week? No Based on assessment nurse practitioner, the following disposition is advised: No symptoms or symptoms present, not severe. Routed to: No Action Needed PAVEL Education Provided this Outreach: No Fide Goff RN November 28, 2023 3:58 PM documented in this encounterVeterans Health Administration11-21-2023 History of Present illness Narrative* Older, DUSTIN Lackey.RIDDLER OPERATOR - 08/10/2023 8:17 AM EST Leana Camejo is a 83 year old male here for a Medicare wellness visit. Medicare Health Risk Assessment General Health Very good Exercise: Minutes/Day Does not exercise Exercise: Days/Week Does not exercise Alcohol: Daily Use Does not drink alcohol Alcohol: Drinks/Day No Alcohol: 6 or more drinks No Feel off balance No Concerns: Teeth/Dentures No Concerns: Sexual function No Troubled by feelings No Frequency: Eating healthy diet Yes most days ADLs requiring help No Safety precautions in home/vehicle Yes Smoke, vape, chews tobacco No Difficulty hearing No Difficulty seeing No Current Providers Specialists: I have reviewed specialist-related care of the patient in the medical record. Current care team: Patient Care Team: Dallas Reed MD as PCP - General (Internal Medicine) Fide Goff RN as Wine Maker (Internal Medicine) Outside specialists seen: Cardiology- Dr. Felipe [place] Sales Person- Dr. Dominguez Vascular- Dr. Perez GI- Dr. Rodriguez Medical/Family history review Reviewed and updated problem list, medical/surgical/family/social history, medications, and allergies. Opioid use review Opioid Medications (last 90 days) Some values may be hidden. Unless noted otherwise, only the newest values recorded on each date aredisplayed. Opioid Medications No data to display. Depression screening Depression Screening PHQ-2 Score 02/04/2023 0 Depression screening tool completed and reviewed. Based on score and interview, patient is not at risk for depression. Screening tool discussed with patient, and I recommended no further interventionat this time. Cognitive screening Mini Cog Score: 3 Cognitive screening reviewed and no further action needed (score 3-5) Functional Observation Was the patient's timed Up & Go test unsteady or ? 12 seconds? No Advance Care Planning Patient did not wish or was not able to name a surrogate decision maker or provide an advance care plan Measurements BP 122/74 Pulse 68 Resp 16 Ht 5' 8 (1.73m) Wt 160 lb (72.6kg) SpO2 98% BMI 24.33 kg/(m^2). Additional screenings: No results found. Assessment/Plan Medicare annual wellness visit, subsequent (Z00.00) - Counseled on healthy diet and regular exercise - Fall avoidance information provided - Personalized prevention plan provided Darya Singh APRN.CNP documented in this encounterVeter[facility]11-21-2023 Instructions* Patient Instructions* Darya SinghDUSTIN.SHAWNA - 08/10/2023 8:17 AM EST Screening schedule The following prevention plan is recommended: RSV Vaccine(1 - 1-dose 60+ series) Never done DTaP,Tdap,Td Vaccine(1 - Tdap) due on 07/08/2005 Shingrix Vaccine(2 of 3) due on 10/13/2014 WHAT YOU CAN DO TO PREVENT FALLS Many falls can be prevented. By making some changes, you can lower your chances of falling. Four things YOU can do to prevent falls for you* and your caregiver 1. Begin a regular exercise program Exercise is one of the most important ways to lower your chances of falling. It makes you stronger and helps you feel better. Exercises that improve balance and coordination (like Demond Chi) are the most helpful. Lack of exercise leads to weakness and increases your chances of falling. Ask your doctor or health care provider about the best type of exercise program for you. 2. Have your health care provider review your medicines Have your doctor or pharmacist review all the medicines you take, even fowo-xgs-jhvaxcl medicines. As you get older, the way medicines work in your body can change. Some medicines, or combinations of medicines, can make you sleepy or dizzy andcan cause you to fall. 3. Have your vision checked Have your eyes checked by an eye doctor at least once a year. You may be wearing the wrong glasses or have a condition like glaucoma or cataracts that limits your vision. Poor vision can increase your chances of falling. 4. Make your home safer About half of all falls happen at home. To make your home safer: Remove things you can trip over (like papers, books, clothes, and shoes) from stairs and places where you walk. Remove small throw rugs or use double-sided tape to keep the rugs from slipping. Keep items you use often in cabinets you can reach easily without using a step stool. Have grab bars put in next to your toilet and in the tub or shower. Use non-slip mats in the bathtub and on shower floors. Improve the lighting in your home. As you get older, you need brighter lights to see well. Hang light-weight curtains or shades to reduce glare. Have handrails and lights put in on all staircases. Wear shoes both inside and outside the house. Avoid going barefoot or wearing slippers. For more information, contact: Centers for Disease Control and Prevention www.cdc.gov/injury * This information may not apply if you have certain medical conditions. documented in this encounterVeterans Health Administration10-06-2023 Miscellaneous Notes* Telephone Encounter - Damir Summers Ma - 06/25/2023 10:55 AM EDT KAMERON: 04/16/2023 Last refill: 05/26/2022 QTY: 90 Refills: 3 * Telephone Encounter - Cathleen Ortega - 06/25/2023 10:08 AM EDT Patient has been identified by name and date of : Yes Requested Prescriptions Pending Prescriptions Disp Refills losartan (COZAAR) 100 mg tablet 90 tablet 3 Sig: Take 1 tablet by mouth once daily. furosemide (LASIX) 20 mg tablet 90 tablet 3 Sig: Take 1 tablet by mouth once daily. RX INSTRUCTIONS: Patient aware RX will be sent to pharmacy. No need to notify patient. Cathleen Mehta documented in this encounterVeterans Health Administration08-31-2023 History of Present illness Narrative* Fide Goff RN - 05/20/2023 4:04 PM EDT CDM Telephonic Outreach Provider Action/FYI CDM CHF, CKD Spk with Pt he reported 04/07/23 underwent AAA repair by Dr. Omid Perez surgeon Pt noted he is healing well without signs of infection, denies fevers, chills or pain, Eating, and hydrating well, voiding and having BM's . Pt is maintaining 20 lb lifting restrictions, 05/26/[address] Omid Perez Pt denies needs or concerns. 05/20/23 ADL, Falls, Goals completed, CKD PAVEL education sent, My ChartHome monitoring questionnaire updates provided. Contacted for: Engagement Contact made with patient: Yes Patient identified by name and date of . Discussed care with patient Outcomes: Patient forgot, reminder given Are you experiencing any new or worsening symptoms you need to talk about today? No Based on assessment nurse practitioner, the following disposition is advised: No symptoms or symptoms present, not severe. Routed to: No Action Needed PAVEL Education Provided this Outreach: Yes Fide Goff RN May 20, 2023 4:27 PM documented in this encounterVeterans Health Administration07-28-2023 History of Present illness Narrative* Dallas Reed MD - 04/16/2023 10:38 AM EDT This note was created using Meaningfy. Subjective Leana Camejo is a 83 year old male. He had stent graft repair of his abdominal aortic aneurysm 04/07/2023. His hypertension was better. He vaguely alluded that he was told to increase hydralazine to4 times a day. His discharge instructions and his hospital records had no mention that he was on hydralazine, and no new prescription was noted on medication reconciliation. He otherwise felt fine and was on his way to work. Review of Systems Constitutional: Negative for fatigue. Respiratory: Negative for chest tightness and shortness of breath. Cardiovascular: Negative for chest pain, palpitations and leg swelling. Gastrointestinal: Negative for abdominal pain, nausea and vomiting. Genitourinary: Negative for difficulty urinating. 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 [place] hydrALAZINE (APRESOLINE) 100 mg tablet Take 1 tablet by mouth three times daily. carvedilol (COREG) 12.5 mg tablet Take 1 tablet by mouth twice daily with meals. budesonide, enteric coated (ENTOCORT EC) 3 mg 24 hr capsule Take 3 capsules by mouth once daily. triamcinolone acetonide (KENALOG) 0.1 % cream apply to AFFECTED AREAS OF THE UPPER EXTREMITIES TWICE DAILY FOR ... (REFER TO PRESCRIPTION NOTES). pimecrolimus (ELIDEL) 1 % cream Apply to affected area twice daily. APPLY TO AFFECTED AREA [id number] 500-1,000-500 mg-unit-mcg cap Take by mouth. DESENEX 2 % powder apply to THE GROIN AREA twice a day doxazosin (CARDURA) 8 mg tablet Take 1 tablet by mouth daily at bedtime. losartan (COZAAR) 100 mg tablet Take 1 tablet by mouth once daily. furosemide (LASIX) 20 mg tablet Take 1 tablet by mouth once daily. LOW-DOSE ASPIRIN ORAL Take 81 mg by mouth once daily. COMPOUNDED PRESCRIPTION Take 1 capsule by mouth once daily. [place] Q Plus glucosamine/chondr rich A sod (OSTEO BI-FLEX ORAL) Take 2 tablets by mouth once daily. Magnesium 200 mg tab Take 400 mg by mouth once daily. Ascorbic Acid 1,000 mg tablet Take 1,000 mg by mouth once daily. (Patient not taking: Reported on 03/04/2023) Garlic 1,000 mg cap Take 1 capsule by mouth once daily. Cholecalciferol, Vitamin D3, 25 mcg (1,000 unit) cap Take 5,000 Units by mouth once daily. multivit-minerals/FA/lycopene (ONE-A-DAY MEN'S ORAL) Take 1 tablet by mouth once daily. vitamin b complex (B COMPLETE) tab Take 1 tablet by mouth once daily. No current facility-administered medications for this visit. Facility-Administered Medications Ordered in Other Visits Medication Dose Route Frequency lidocaine (PF) 10 mg/mL (1 %) 1-2 mg injection (XYLOCAINE) 0.1-0.2 mL INTRADERMAL PRN lactated ringers iv infusion 30 mL/hr INTRAVENOUS CONTINUOUS Objective BP 146/70 Pulse 60 Resp 16 Wt 74.4 kg (164 lb) BMI 24.94 kg/m Physical Exam Constitutional: General: He is not in acute distress. Appearance: He is not ill-appearing. Cardiovascular: Rate and Rhythm: Normal rate and regular rhythm. Heart sounds: No murmur heard. No gallop. Pulmonary: Breath sounds: Normal breath sounds. Abdominal: Palpations: Abdomen is soft. Tenderness: There is no abdominal tenderness. Musculoskeletal: Right lower leg: No edema. Left lower leg: No edema. Neurological: Mental Status: He is alert. Gait: Gait normal. Assessment and Plan 1. Primary hypertension - ICD9: 401.9, ICD10: I10 (primary diagnosis) - Improving control - Continue current medications - Reviewed risks of hypertension and principles of treatment 2. S/P AAA repair - ICD9: V45.89, ICD10: Z98.890, Z86.79 Noted. He follows up with Dr. Omid Perez. Dallas Reed MD documented in this encounterVeterans Health Administration07-20-2023 Consult note Author Marianne Astudillo [facility] April 08, 2023 2:25pm Note Date/Time April 08, 2023 2:23 pm [facility] Medical Records Department [address] [place] [address] Counseling Note - Pharmacy 04/08/23 1421 MR#: [id number] Acct: [id number] Name: LEANA CAMEJO Rep #:[id number] 12 : 1940 83 From: Marianne Astudillo PCP: Dr. Dallas Reed MD Status:A DM IN Y Location: [place] [address] Pharmacy [place] Med Reconciliation Pharmacy Service has performed discharge medication reconciliation for this patient. No new medications at time of discharge review. Medications reviewed are from previously reported home medications. The patient's discharge medication list was reviewed for discrepancies and discrepancies were resolved. Medications at Discharge Home Medications [id number] 500 mg-1,000 unit-500 mcg cap 1 ea PO DAILY supplement 07/26/15 furosemide 20 mg tablet 20 mg PO DAILY heart 05/17/19 glucosamine-chondroitin 250 mg-200 mg tablet (Osteo Bi-Flex) 1 tab PO DAILY supplement 05/17/19 losartan 100 mg tablet 100 mg PO DAILY BP 05/17/19 magnesium 200 mg tablet 400 mg PO DAILY supplement 05/17/19 cholecalciferol (vitamin D3) 50 mcg (2,000 unit) capsule 2,000 unit PO DAILY supplement 05/18/19 coenzyme Q10 100 mg capsule 200 mg PO DAILY supplement 05/18/19 garlic 1,000 mg capsule 1,000 mg PO DAILY supplement 05/18/19 multivitamin 1 tab PO DAILY supplement 05/18/19 ascorbic acid (vitamin C) 500 mg capsule 2,000 mg PO DAILY supplement 02/14/20 carvedilol 12.5 mg tablet 12.5 mg PO BID heart #180 tabs 11/12/21 aspirin 81 mg tablet,delayed release (Adult Aspirin Regimen) 81 mg PO QODAY PRN heart health 05/13/22 budesonide 3 mg capsule,delayed,extended release 9 mg PO DAILY BOWELS 02/23/23 04/08/23 1421 <Electronically signed by Marianne Astudillo > Date _ Marianne Astudillo Cosigner Signature (if applicable): Date CC: ~ Signed [facility] Work Phone: 1(106) 451-910507-20-2023 Discharge summary Author Omid Perez [facility] April 08, 2023 6:30am Note Date/Time April 07, 2023 6:29 am [facility] Medical Records Department [address] [place] [address] Instructions for Home/Discharge Instructions 04/07/23 0627 MR#: [id number] Acct: [id number] Name: LEANA CAMEJO Rep #:[id number] : 1940 83 From: Omid Perez MD PCP: Dr. Dallas Reed MD Status:A DM IN Discharge Instructions Diet Discharge Diet: Light diet - advance as tolerated Activity Discharge Activity: May Not Drive (May not drive for 5 to 7 days.) and May Shower (May shower on Wednesday, April 09, 2023) Weight Bearing Status: Full weight bearing Lifting Restrictions: 10 pound weight lifting restriction Additional Activity Instructions:: You may walk with care paying attention to bilateral groin incisions Dressing / Incision Call your doctor if your incision/area has: Continuous Slow Oozing, Sudden Increased Bleeding, Increased Pain/ Swelling and Increased Redness Call your doctor if you observe: Fever of 101 or Higher, Coldness, Increased Pain and Numbness or Tingling Additional Dressing/Incision Instructions:: Please leave the OpSite plastic dressings on for 2 days then you may remove them. Leave the Steri-Strips on for1 additional week. Follow Up Care Please Follow Up With: Omid Perez MD When: Please call [phone] for follow-up office appointment approximately 10days Test Results: Test results from this visit will be discussed in further detail at your follow- up appointment, if applicable. Discharge Plan Admission Admit Date/Time: 04/07/23 05:26 Primary Reason for Your Visit: Infrarenal abdominal aortic aneurysm repair Attending Provider: Omid Perez Primary Care Provider: Dallas Reed Consulting Providers: Dieetr Christianson Discharge Orders/Prescriptions Prescriptions: Continued coenzyme Q10 100 mg capsule 200 mg PO DAILY garlic 1,000 mg capsule 1,000 mg PO DAILY cholecalciferol (vitamin D3) 2,000 unit capsule 2,000 unit PO DAILY multivitamin Tablet 1 tab PO DAILY furosemide 20 mg tablet 20 mg PO DAILY losartan 100 mg tablet 100 mg PO DAILY glucosamine-chondroitin 250 mg-200 mg tablet 250-200 mg tablet 1 tab PO DAILY magnesium 200 mg tablet 400 mg PO DAILY ascorbic acid (vitamin C) 500 mg capsule 2,000 mg PO DAILY carvedilol 12.5 mg tablet 12.5 mg PO BID Qty: 180 0RF budesonide 3 mg capsule,delayed,extend.release 9 mg PO DAILY aspirin [Adult Aspirin Regimen] 81 mg tablet,delayed release (DR/EC) 81 mg PO QODAY PRN (Reason: heart health) Held [id number] 1 EACH capsule 1 ea PO DAILY Hold Instructions: Resume on 04/21/23. Patient Comments: supplement Other Ambulatory Orders: CTA Abd/Pelvis W/WO Contrast (Routine) Timeframe: [id number] Facility: [facility] - Location: Cat Scan, [facility] Ordered By: Benita PEREZ Referrals / Follow Up: Dallas Reed MD [Primary Care Provider] - 04/08/23629<Electronically signed by Omid Perez MD>Omid Perez MD CC: Dr. Dieter Christianson MD; Dr. Dallas Reed MD ~ Signed [facility] Work Phone: [phone]) 478-202807-20-2023 Progress note Author Omid Perez [facility] April 08, 2023 6:29am Note Date/Time April 08, 2023 6:30 am [facility] Medical Records Department [address] [place] [address] Progress Note - Surgery 04/08/23627 MR#: [id number] Acct: [id number] Name: LEANA CAMEJO Rep #:[id number] : 1940 83 From: Omid Perez MD PCP: Dr. Dallas Reed MD Status:A DM IN Location: [place] [address] Subjective Subjective Is doing well. No back pain no abdominal pain. Passing flatus. The Feliciano catheter was just removed. Objective Data Objective Data Vital Signs: Vital Signs Temp Pulse Resp BP Pulse Ox O2 Del Method O2 Flow Rate 97.3 F L 73 17 169/85 H 97 Room Air 2 04/08/23 05:56 04/08/23 05:56 04/08/23 05:56 04/08/23 05:56 04/08/23 05:56 04/08/23 05:56 04/08/23 04:13 Oxygen Flow Rate (L/min) 2 Oxygen Delivery Method Room Air Weight: 166 lb 3.657 oz Body Mass Index (BMI) 25.2 Intake & Output: Intake and Output for Last 24 Hours 04/06/23 04/07/23 04/08/23 23:59 23:59 23:59 Intake Total 556.67 / 556.67 997.5 / 997.5 Output Total 1200 / 1200 1100 / 1100 Balance -643.33 / -643.33 -102.5 / -102.5 Lab / Micro Data 04/08/23 05:14 04/08/23 05:14 Labs: Laboratory Results - last 24 hr 04/07/23 07:25: Activated Clotting Time 155 H 04/07/23 08:30: Activated Clotting Time 197 H 04/07/23 09:05: Activated Clotting Time 197 H 04/07/23 09:20: Activated Clotting Time 203 H 04/07/23 09:55: Activated Clotting Time 143 H 04/08/23 05:14: WBC 8.8, RBC 3.95 L, Hgb 11.8 L, Hct 36.4 L, MCV 92.2, MCH 29.9,MCHC 32.4, RDW Std Deviation 51.8 H, RDW Coeff of Erma 15.3 H, Plt Count 107 L, MPV 10.5, Immature Gran % (Auto) 1.400 H, Neut % (Auto) 71.5 H, Lymph % (Auto) 15.5 L, Billings % (Auto) 9.7, Eos % (Auto) 1.6, Baso % (Auto) 0.3, Absolute Neuts (auto) 6.3, Absolute Lymphs (auto) 1.37, Nucleated RBC % 0, Sodium 142, Potassium 3.6, Chloride 108 H, Carbon Dioxide 28.0, Anion Gap 6, BUN 20 H, Creatinine 1.11, Estim Creat Clear Calc 48.78, Est GFR (MDRD) Af Amer 81, Est GFR (MDRD) Non-Af 67, BUN/Creatinine Ratio 18.0, Glucose 96, Calcium 8.2 L Physical Exam Const oriented x3 Resp normal respiratory effort and clear to auscultation bilaterally Cardio Cardio Narrative: 3+ bilateral PT pulses GI GI Narrative: Soft, nontender Bilateral groin access sites absolutely clean dry supple Assessment & Plan Assessment/Plan (1) Abdominal aortic 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: QUALIFIERS: Abdominal aorta location: infrarenal aorta Qualified Code(s): I71.43 - Infrarenal abdominal aortic aneurysm, without rupture PLAN: Patient is making excellent progress. We will allow full liquids. Continue to mobilize. Await for his ability to void. Patient will be resuming his routine antihypertensives. I anticipate discharge today. Omid Perez M.D., F.A.C.S. 04/08/23 0629 <Electronically signed by Omid Perez MD> Cosigner Signature (if applicable): CC: ~ Signed [facility] Work Phone: 1(903) 833-146007-19-2023 Progress note Author Omid Perez [facility] April 07, 2023 3:21pm Note Date/Time April 07, 2023 3:21 pm [facility] Medical Records Department [address] [place] [address] Progress Note - Surgery 04/07/23 1519 MR#: [id number] Acct: [id number] Name: LEANA CAMEJO Rep #:[id number] : 1940 83 From: Omid Perez MD PCP: Dr. Dallas Reed MD Status:A DM IN Location: [place] [address] Subjective Subjective Notes some back pain. Thinks it might be secondary to lying flat for so long. He has already been passing flatus. No significant groin pain. No nausea. Objective Data Objective Data Vital Signs: Vital Signs Temp Pulse Resp BP Pulse Ox O2 Del Method O2 Flow Rate 97.4 F L 64 14 182/86 H 96 Nasal Cannula 2 04/07/23 14:00 04/07/23 15:11 04/07/23 14:00 04/07/23 15:11 04/07/23 14:00 04/07/23 14:45 04/07/23 14:45 Oxygen Flow Rate (L/min) 2 Oxygen Delivery Method Nasal Cannula Weight: 174 lb 13.225 oz Body Mass Index (BMI) 26.6 Intake & Output: Intake and Output for Last 24 Hours 04/05/23 04/06/23 04/07/23 23:59 23:59 23:59 Output Total 250 / 250 Balance -250 / -250 Lab / Micro Data 04/01/23 10:25 04/01/23 10:25 Labs: Laboratory Results - last 24 hr 04/07/23 07:25: Activated Clotting Time 155 H 04/07/23 08:30: Activated Clotting Time 197 H 04/07/23 09:05: Activated Clotting Time 197 H 04/07/23 09:20: Activated Clotting Time 203 H 04/07/23 09:55: Activated Clotting Time 143 H Physical Exam Narrative Mild hypertension noted with blood pressure systolic greater than 160. Hydralazine IV being given Const Constitutional Narrative: Comfortable absolutely no distress nasal prong oxygen in place Resp Resp Narrative: Clear Cardio regular rate Cardio Narrative: Bilateral posterior tibial 3+ pulses feet warm and viable Rhythm: abnormal rhythm GI GI Narrative: Soft absolutely nontender positive bowel sounds Narrative: Bilateral groins supple no staining on the dressings nontender Assessment & Plan Assessment/Plan (1) Abdominal aortic 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: QUALIFIERS: Abdominal aorta location: infrarenal aorta Qualified Code(s): I71.43 - Infrarenal abdominal aortic aneurysm, without rupture PLAN: Patient is status post infrarenal abdominal aortic stent graft repair. Heappears to be very stable. Mild hypertension being treated with IV hydralazine. Good clear urine output per Feliciano Bed rest is about up start to mobilize we will allow noncarbonated clear liquids. Repeat labs and repeat physical exam check in the morning. Excellent progress so far. Omid Perez M.D., F.A.C.S. 04/07/23 1521 <Electronically signed by Omid Perez MD> Cosigner Signature (if applicable): CC: ~ Signed [facility] Work Phone: 1(840) 196-845907-19-2023 Procedure [facility] 04-07-2023 History and physical note Author Omid Perez [facility] April 07, 2023 5:46am Note Date/Time April 07, 2023 5:46 am [facility] Medical Records Department [address] [place] [address] History & Physical Exam 04/07/23 0545 MR#: [id number] Acct: [id number] Name: LEANA CAMEJO Rep #:[id number] : 1940 83 From: Omid Perez MD PCP: Dr. Dallas Reed MD Status:A DM IN Location: [facility] History and Physical Date of Admission: 04/07/23 Drafting Engineer Required: No Is patient in pain?: No Allergies lisinopril Allergy (Intermediate, Verified 03/05/23 07:35) Rashatorvastatin calcium [From Lipitor] Allergy (Verified 03/05/23 07:35) Otherclonidine Allergy (Verified 03/05/23 07:35) Unknownrosuvastatin calcium [From Crestor] Allergy (Verified 03/05/23 07:35) KaihkOqejmgy-EGH-FbN Reductase Inhibitor [Imbqbya-Yzc-Xwi Reductase Inhibitor] Allergy (Verified 03/05/23 07:35) Other Medications [id number]-ezkvafnulxt 500 mg-1,000 unit-500 mcg cap 1 ea PO DAILY supplement 07/26/15 [History Confirmed 03/05/23] furosemide 20 mg tablet 20 mg PO DAILY heart 05/17/19 [History Confirmed 03/05/23] glucosamine-chondroitin 250 mg-200 mg tablet (Osteo Bi-Flex) 2 tab PO DAILY supplement 05/17/19 [History Confirmed 03/05/23] losartan 100 mg tablet 100 mg PO DAILY BP 05/17/19 [History Confirmed 03/05/23] magnesium 200 mg tablet 400 mg PO DAILY supplement 05/17/19 [History Confirmed 03/05/23] cholecalciferol (vitamin D3) 50 mcg (2,000 unit) capsule 2,000 unit PO DAILY supplement 05/18/19 [History Confirmed 03/05/23] coenzyme Q10 100 mg capsule 200 mg PO DAILY supplement 05/18/19 [History Confirmed 03/05/23] garlic 1,000 mg capsule 1,000 mg PO DAILY supplement 05/18/19 [History Confirmed 03/05/23] multivitamin 1 tab PO DAILY supplement 05/18/19 [History Confirmed 03/05/23] ascorbic acid (vitamin C) 500 mg capsule 4,000 mg PO DAILY supplement 02/14/20 [History Confirmed 03/05/23] carvedilol 12.5 mg tablet 12.5 mg PO BID heart #180 tabs 11/12/21 [Rx Confirmed 03/05/23] aspirin 81 mg tablet,delayed release (Adult Aspirin Regimen) 81 mg PO QDAY PRN [facility] 05/13/22 [History Confirmed 03/05/23] budesonide 3 mg capsule,delayed,extended release cap PO 02/23/23 [History Confirmed 03/05/23] PFSH Medical History Abdominal aortic 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 Anemia Cough productive of purulent sputum 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, NYHA class 2 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 Diverticulosis Essential hypertension Hyperlipidemia Irregular heart beat Kidney disease Lumbar disc disease Pre-operative cardiovascular examination Preop cardiovascular exam RSV (respiratory syncytial virus pneumonia) Shortness of breath Stenosis of right internal carotid artery Surgical History History of back surgery History of blepharoplasty History of colonoscopy History of inguinal hernia repair History of right-sided carotid endarterectomy History of tonsillectomy History of total hip replacement History of total left knee replacement History of umbilical hernia repair Hx of appendectomy Hx of cataract surgery Family History Father Lung cancer Liver cancerMother Oral cancer Social History Smoking Status: Former smoker second hand exposure: No alcohol intake: never substance use type: does not use caffeine: Yes Type: coffee Number of servings: 2 HPI HPI HPI: 83-year-old gentleman returns to discuss results of his CTA of his abdominal aortic aneurysm. I have personally reviewed those images. 83-year-old gentleman who has been monitored with a progressively enlarging infrarenal abdominal aortic aneurysm. It is a saccular aneurysm measuring now 48.5 mm in diameter. Mural thrombus is identified. There is plaque that extends close to the origin of the right renal artery but otherwise there is a long neck for placement of the device. 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 On review of the imaging he does appear to be a candidate for a endovascular abdominal aortic aneurysm stent graft repair with bilateral hanley bottom devices. He returns today to discuss this as a potential procedure. Laboratory that was obtained on February 23, 2023 demonstrates a potassium of 3.6 with a BUN of 34 and a creatinine of 1.37 with an estimated GFR of 53 placing him in stage IIIa chronic kidney disease. States that he has had some problems with variable blood pressure. He states hejust saw Dr. Dallas Reed yesterday and was placed on additional medication. February 25, 2023 STUDY:? CTA ABDOMEN AND PELVIS WITH AND WITHOUT CONTRAST REASON FOR EXAM: ? Male, 83 years old.? AAA RADIATION DOSAGE (If Supplied By Facility):? CTDIvol = ( 22.68 ) mGy, DLP = ( 477.60 ) mGycm TECHNIQUE: ? Transaxial images were obtained from the dome of the diaphragm to the symphysis pubis without oral contrast.? IV 100mL Isovue-370 was administered.? Sagittal and coronal images were reconstructed. Individualized dose optimization techniques were used for this CT. COMPARISON: ? Comparison is made with prior sonogram dated January 19, 2023. FINDINGS: Calcified granuloma in the peripheral lateral aspect of the right lower lobe.? Coronary artery calcification. Normal liver.? Normal gallbladder and extrahepatic biliary system.? Normal spleen.? Normal pancreas. Normal bilateral adrenal glands. Normal right kidney.? Normal left kidney. Normal visualized stomach.? Normal small intestine.? There are multiple colonic diverticula consistent with diverticulosis.? The appendix is visualized and appears normal. There is diffuse atherosclerotic calcification of the abdominal aorta. Saccular infrarenal abdominal aortic aneurysm with a transverse dimension of 48.5 mm. 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 Mural thrombus is seen. The proximal portion of the right common iliac artery measures 1.8 cm. Normal inferior vena cava.? Normal retroperitoneum. Distended urinary bladder. This evidence of a diverticulum in the posterior right aspect of the bladder measuring 4 cm x 3.5 cm. Prostatic enlargement with indentation of the bladder base. Normal abdominal wall.? There are diffuse degenerative changes of the visualized lumbar spine. Status post right total hip replacement. CT/CTA Abd/Pelvis W/WO Contrast IMPRESSION: There is a saccular infrarenal abdominal aortic aneurysm with a transverse dimension of 48.5 mm. Aneurysmally dilated common iliac arteries bilaterally. Distended urinary bladder with prostatic enlargement and right-sided bladder diverticulum. ? Electronically Signed: Jw Alcaraz MD at 9:59 EDT , My previous notes reflect the following Visit Reasons:?YEARLY CAROTID & AAA Chief Complaint: Yearly US results Is patient in pain?: No Allergies lisinopril Allergy (Intermediate, Verified 02/23/23 09:38) Rashatorvastatin calcium [From Lipitor] Allergy (Verified 02/23/23 09:38) Otherclonidine Allergy (Verified 02/23/23 09:38) Unknownrosuvastatin calcium [From Crestor] Allergy (Verified 02/23/23 09:38) QbblpYlcivom-UCS-MiM Reductase Inhibitor [Ingieje-Llk-Dom Reductase Inhibitor] Allergy (Verified 02/23/23 09:38) Other Medications [id number]-[id number] 500 mg-1,000 unit-500 mcg cap 1 ea PO DAILY supplement 07/26/15 [History Confirmed 05/13/22] furosemide 20 mg tablet 20 mg PO DAILY heart 05/17/19 [History Confirmed 05/13/22] glucosamine-chondroitin 250 mg-200 mg tablet (Osteo Bi-Flex) 2 tab PO DAILY supplement 05/17/19 [History Confirmed 05/13/22] losartan 100 mg tablet 100 mg PO DAILY BP 05/17/19 [History Confirmed 05/13/22] magnesium 200 mg tablet 400 mg PO DAILY supplement 05/17/19 [History Confirmed 05/13/22] cholecalciferol (vitamin D3) 50 mcg (2,000 unit) capsule 2,000 unit PO DAILY supplement 05/18/19 [History Confirmed 05/13/22] coenzyme Q10 100 mg capsule 200 mg PO DAILY supplement 05/18/19 [History Confirmed 05/13/22] garlic 1,000 mg capsule 1,000 mg PO DAILY supplement 05/18/19 [History Confirmed 05/13/22] multivitamin 1 tab PO DAILY supplement 05/18/19 [History Confirmed 05/13/22] ascorbic acid (vitamin C) 500 mg capsule 4,000 mg PO DAILY supplement 02/14/20 [History Confirmed 05/13/22] carvedilol 12.5 mg tablet 12.5 mg PO BID heart #180 tabs 11/12/21 [Rx Confirmed 05/13/22] aspirin 81 mg tablet,delayed release (Adult Aspirin Regimen) 81 mg PO QDAY PRN heart health 05/13/22 [History Confirmed 05/13/22] budesonide 3 mg capsule,delayed,extended release cap PO 02/23/23 [History Confirmed 02/23/23] PFSH Medical History?(Updated 02/23/23 @ 09:47 by Sangeetha Castelan) Abdominal aortic 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 Anemia Cough productive of purulent sputum 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, NYHA class 2 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 Diverticulosis Essential hypertension Hyperlipidemia Irregular heart beat Kidney disease Lumbar disc disease Pre-operative cardiovascular examination Preop cardiovascular exam RSV (respiratory syncytial virus pneumonia) Shortness of breath Stenosis of right internal carotid artery Surgical History? History of back surgery History of blepharoplasty History of colonoscopy History of inguinal hernia repair History of right-sided carotid endarterectomy History of tonsillectomy History of total hip replacement History of total left knee replacement History of umbilical hernia repair Hx of appendectomy Hx of cataract surgery Family History? Father?? Lung cancer Liver cancerMother Oral cancer Social History? Smoking Status:? Former smoker second hand exposure:? No alcohol intake:? never substance use type:? does not use caffeine:? Yes Type: coffee Number of servings: 2 HPI HPI HPI: 83-year-old gentleman presents for follow-up regarding an abdominal aortic aneurysm and extracranial carotid artery occlusive disease.? As of January 19, 2023 he had any abdominal aortic duplex exam.? I have personally reviewed and interpreted these images.? The patient has a 4.67 x 4.82 cm diameter mid abdominal aortic aneurysm with a left common neck measuring 1.3 cm in the right common neck 1.21 cm.? Previously January 12, 2022 the abdominal aortic aneurysm measured 4.53 x 4.22 cm in diameter. As of January 19, 2023 he also had carotid duplex imaging.? He has a history of a right carotid enterectomy January 30, 2021.? The duplex imaging demonstrates a widely patent right carotid bulb and proximal internal carotid artery with less than 50% stenosis.? The left internal carotid artery demonstrates a maximum peaksystolic velocity in the mid internal carotid artery and 137 cm/s peak systolic flow consistent with 50 to 69% stenosis.? No change from January 03, 2021.? I havepersonally reviewed and interpreted those images. It is of note that the patient is on low-dose aspirin 81 mg daily in addition tohis other medications. Over the past year he has been generally well except he did have a bout of severe diarrhea.? He states he was worked up at [facility] in [facility] had a colonoscopy and then suggest that he was placed on medication.? It appearsthat he has been placed on budesonide.? Likely he has microcytic colitis but he was unclear about that.? Otherwise he denies chest pain or shortness of breath or focal neurologic change.? He is supposed to be on a low-dose aspirin but he is intermittently consistent with that. As noted below he had an abdominal aortic ultrasound now demonstrating that the maximum aortic diameter is 4.67 x 4.82 cm.? This is progressed from his previousexamination of January 12, 2022.? I have personally reviewed and assisted with interpreting the images. January 19, 2023 Reason For Study: AAA Aorta Measurements? Aorta Doppler Measurements Proximal aorta measures2.23 x 2.12cm. in cross- ? Peak systolic flow velocities within the proximal sectional axis. ? aorta measure 103.1 cm/sec. Proximal aorta measures2.23cm. in longitudinal? ? Peak systolic flow velocities within the mid aorta axis. ? measure 122.7 cm/sec. Mid aorta measures4.67 x 4.82cm. in cross-? Peak systolic flow velocities within the distal sectional axis. ? aorta measure 93.8 cm/sec. Mid aorta measures4.82cm. in longitudinal axis. Distal aorta measures2.39 x 2.36cm. in cross- sectional axis. Distal aorta measures2.06cm. in longitudinal axis. Left Iliac Artery Left iliac artery measures 1.30 x 1.23 cm. in the cross-sectional axis. Left iliac artery measures 1.26 cm. in the longitudinal axis. Peak systolic velocity in the left iliac artery measures 113.0 cm/sec. Right Iliac Artery Right iliac artery measures 1.21 x 1.27 cm. in the cross-sectional axis. Right iliac artery measures 1.21 cm. in the longitudinal axis. Peak systolic velocity in the right iliac artery measures 54.3 cm/sec. Procedure Aorta IVC Iliac vasculature or bypass grafts 60563. The exam was diagnostic. Exam performed in department. VL/Abd Aortic/IVC Duplex scan Interpretation Summary Abdominal aortic aneurysm measuring 4.67 x 4.82 cm in diameter in the mid abdominal aorta. Left common iliac artery ectatic at 1.3 x 1.23 cm diameter Right common iliac normal at 1.21 x 1.27 cm diameter ? On January 12, 2022 the abdominal aortic aneurysm measured 4.53 x 4.22 cm in diameter ? ? Ordering Physician: Omid Perez MD Referring Physician: Dallas Reed Performed By: Yuan Menon Yael General General: Yes weight change; No appetite, fatigue, colon cancer, breast cancer or weakness HEENT HEENT: Yes eye surgery; No difficulty swallowing, eye injury, swollen glands or hoarseness Endo Endocrine: No thyroid disease, diabetes mellitus, thyroid cancer, Hair loss, heat intolerance or cold intolerance Musc Musculoskeletal: Yes back problems and arthritis; No rheumatoid arthritis, gout or joint pain Cardio Cardiovascular: Yes high blood pressure; No murmur, pacemaker, heart disease, atrial fibrillation, heart attack, heart stent, palpitations, shortness of breat with exertion or chest pain Psych Psychiatric: No depression, anxiety or hearing voices Resp Respiratory: No shortness of breath, No sleep apnea, No cough, No COPD, No asthma, No emphysema and No wheezing Gastro Gastrointestinal: No abdominal pain, No nausea or vomiting, Yes diarrhea, No constipation, No blood in stool, No acid reflux, No hemorrhoids, No ulcers, No gallbladder problem and No black,tarry stools Leo Hematologic: No blood thinners, No blood disorders, No bleeding, No anemia and No blood clots Neuro Neurologic: Yes numbness, Yes tingling and No weakness Exam Const General: cooperative, healthy appearing, comfortable, no acute distress and welldeveloped Nutritional Appearance: average body habitus [facility] Head: normal to inspection Eyes General: appearance normal, both eyes and all related structures Neck Neck: normal visual inspection Other: Very nicely healed right carotid incision.? Bilateral carotid pulses 3+.? No carotid bruits Chest Chest palpation & inspection: normal inspection of the chest Resp Effort & Inspection: normal respiratory effort Auscultation: clear to auscultation bilaterally Cardio Rate: regular rate Rhythm: regular rhythm Other: Bilateral femoral pulses are 3+.? Bilateral popliteal pulses 3+.? Bilateral DP 0.? Bilateral PTs 3+ GI Palpation: soft and no hepatosplenomegaly Auscultation: normal bowel sounds Other: Abdominal aorta is easily palpable and aneurysmal.? Nontender. 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 His abdominal aortic aneurysm appears to be slowly progressing.?At age 83 he appears to be enjoying a good quality of life.? He does have chronic renal insufficiency and we we will recheck his renal function test.? If permissible I do want to pursue a CTA of the abdomen and pelvis.? We will then have him return to the office for additional consultation.? His aneurysm has significantly progressed since identification in 2017.? It appears that he has ongoing good quality of life and longevity and he is interested in pursuing thismatter.? The CTA will help provide information as to whether he would be a candidate for endovascular repair. He has had an opportunity to ask and have questions answered.? I appreciate the ongoing option of assisting with the surgical care.? If possible we will pursue the imaging and then have him to return. Copy: Dr. Dallas Perez M.D., F.A.C.S [facility] General General: Yes weight change; No appetite, fatigue, colon cancer, breast cancer or weakness HEENT HEENT: Yes eye surgery; No difficulty swallowing, eye injury, swollen glands or hoarseness Endo Endocrine: No thyroid disease, diabetes mellitus, thyroid cancer, Hair loss, heat intolerance or cold intolerance Musc Musculoskeletal: Yes back problems and arthritis; No rheumatoid arthritis, gout or joint pain Cardio Cardiovascular: Yes high blood pressure; No murmur, pacemaker, heart disease, atrial fibrillation, heart attack, heart stent, palpitations, shortness of breat with exertion or chest pain Psych Psychiatric: No depression, anxiety or hearing voices Resp Respiratory: No shortness of breath, No sleep apnea, No cough, No COPD, No asthma, No emphysema and No wheezing Gastro Gastrointestinal: No abdominal pain, No nausea or vomiting, Yes diarrhea, No constipation, No blood in stool, No acid reflux, No hemorrhoids, No ulcers, No gallbladder problem and No black,tarry stools Leo Hematologic: No blood thinners, No blood disorders, No bleeding, No anemia and No blood clots Neuro Neurologic: Yes numbness, Yes tingling and No weakness Assessment and Plan Assessment and Plan (1) Abdominal aortic 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: Status: Chronic Comment: 4.67 x 4.82 cm in diameter as of January 19, 2023 (2) Aneurysm, common iliac artery: Status: Acute (3) Chronic renal failure, stage 3 (moderate): Status: Chronic Plan I have discussed with the patient the technique of abdominal aortic aneurysm endovascular stent graft repair. He is aware of the benefit, risk, alternatives. We have been carefully monitoring the progression of his infrarenal abdominal aortic aneurysm and as he otherwise continues to enjoy a good quality of life at the current growth of the aneurysm would appear to warrant repair. He has had an opportunity to ask and have questions answered. I have discussed with the patient infrarenal abdominal aortic aneurysm stent graft repair with hanley bottom devices to secure the bilateral common iliac artery aneurysms. We discussed arterial line monitoring. We compared and contrasted that to an open aneurysm repair. The patient is enjoying a very highquality of life. He is aware that he does not need to pursue repair at all. Hehas had an opportunity to ask and have questions answered. I have additionally discussed with him that it is important that he have his blood pressure control maximized. We will send a copy of this report to Dr. Dallas Reed in hopes of maximizing that care prior to her intervention. Copy: Dr. Dallas Perez M.D., F.A.C.S This patient presents for an infrarenal abdominal aortic aneurysm stent graft repair with arterial line placement. His health remains unchanged. He has had an opportunity to ask and have questions answered. We will proceed as noted. Omid Perez M.D., F.A.C.S. 04/07/23 0546 <Electronically signed by Omid Perez MD> Cosigner Signature (if applicable): CC: Dr. Omid Perez MD; Dr. Dallas Reed MD~ Signed [facility] Work Phone: 1(518) 805-525407-19-2023 [facility] History of Present illness Narrative* Cassandra Couch LPN - 03/04/2023 9:57 AM EDT Manual Readin/70 Pulse: 64 BP Fab average: 160/76 Pulse: 62 Repeat BP Check: 166/80 Pulse: 61 160/67 57 156/82 70 150/70 61 * Dallas Reed MD - 03/04/2023 9:49 AM EDT This note was created using Meaningfy. Subjective Leana Camejo is a 83 year old male. We stopped hydralazine because he was taking it as needed. BPwent high when he saw vascular surgeon. He restarted hydralazine twice a day but will run out. His abdominal aortic aneurysm was being closely monitored by Dr. Cony Perez and he had a follow up after CTA was done. He was taking a supplement called Boswella for GI issues. Review of Systems Constitutional: Negative for fatigue. Respiratory: Negative for chest tightness, shortness of breath and wheezing. Cardiovascular: Negative for chest pain, palpitations and leg swelling. Gastrointestinal: Negative for abdominal pain. Neurological: Negative for dizziness and headaches. 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 Boswell[place] carvedilol (COREG) 12.5 mg tablet Take 1 tablet by mouth twice daily with meals. budesonide, enteric coated (ENTOCORT EC) 3 mg 24 hr capsule Take 3 capsules by mouth once daily. triamcinolone acetonide (KENALOG) 0.1 % cream apply to AFFECTED AREAS OF THE UPPER EXTREMITIES TWICE DAILY FOR ... (REFER TO PRESCRIPTION NOTES). pimecrolimus (ELIDEL) 1 % cream Apply to affected area twice daily. APPLY TO AFFECTED AREA [id number] 500-1,000-500 mg-unit-mcg cap Take by mouth. DESENEX 2 % powder apply to THE GROIN AREA twice a day doxazosin (CARDURA) 8 mg tablet Take 1 tablet by mouth daily at bedtime. losartan (COZAAR) 100 mg tablet Take 1 tablet by mouth once daily. furosemide (LASIX) 20 mg tablet Take 1 tablet by mouth once daily. LOW-DOSE ASPIRIN ORAL Take 81 mg by mouth once daily. COMPOUNDED PRESCRIPTION Take 1 capsule by mouth once daily. [place] Q Plus glucosamine/chondr rich A sod (OSTEO BI-FLEX ORAL) Take 2 tablets by mouth once daily. Magnesium 200 mg tab Take 400 mg by mouth once daily. Garlic 1,000 mg cap Take 1 capsule by mouth once daily. Cholecalciferol, Vitamin D3, 25 mcg (1,000 unit) cap Take 5,000 Units by mouth once daily. multivit-minerals/FA/lycopene (ONE-A-DAY MEN'S ORAL) Take 1 tablet by mouth once daily. vitamin b complex (B COMPLETE) tab Take 1 tablet by mouth once daily. colestipol (COLESTID) 1 gram tablet Take 1 tablet by mouth twice daily. For cholesterol. (Patient not taking: Reported on 03/04/2023) Ascorbic Acid 1,000 mg tablet Take 1,000 mg by mouth once daily. (Patient not taking: Reported on 03/04/2023) No current facility-administered medications for this visit. Facility-Administered Medications Ordered in Other Visits Medication Dose Route Frequency lidocaine (PF) 10 mg/mL (1 %) 1-2 mg injection (XYLOCAINE) 0.1-0.2 mL INTRADERMAL PRN lactated ringers iv infusion 30 mL/hr INTRAVENOUS CONTINUOUS Objective BP 160/76 (BP Site: Left Arm, BP Position: Sitting, BP Cuff Size: Large Adult) Pulse 62 Resp 12 Wt 73.5 kg (162 lb) BMI 24.63 kg/m Physical Exam Constitutional: General: He is not in acute distress. Appearance: He is not ill-appearing. Cardiovascular: Rate and Rhythm: Normal rate and regular rhythm. Heart sounds: No murmur heard. No gallop. Pulmonary: Breath sounds: Normal breath sounds. Abdominal: Tenderness: There is no abdominal tenderness. Musculoskeletal: Right lower leg: No edema. Left lower leg: No edema. Neurological: Mental Status: He is alert. Gait: Gait normal. Assessment and Plan 1. Primary hypertension - ICD9: 401.9, ICD10: I10 - Improving control - Continue current medications - Start HYDRALAZINE. - Reviewed risks of hypertension and principles of treatment - HYDRALAZINE 100 MG TABLET. Take one(1) tablet three times daily. I stressed this is routine and not PRN to avoid yoyo effect. Discussed medication dosage, usage, goals of therapy, and side effects. - He was instructed to bring his BP wrist cuff to check for accuracy. 2. Abdominal aortic aneurysm (AAA) without rupture, unspecified part (HCC) - ICD9: 441.4, ICD10: I71.[address] Perez post CTA. Dallas Reed MD documented in this encounterV[facility]05-15-2023 Instructions* Patient Instructions* Adrian aWrner PA-C - 02/01/2023 11:00 AM EDT Flonase or saline nasal spray. If you use Flonase and have any bloody noses, stop the flonase. documented in this encounterVeter[facility]05-15-2023 History of Present illness Narrative* Adrian Warner PA-C - 02/01/2023 10:54 AM EDT 02/01/2023 Patient presents with: Ear Problem: ear pressure, hard of hearing x 1 week SUBJECTIVE: This is a 83 year old that is here today for Complaint(s) of ear pressure and fullness REESE. Recently flew home from [place]. Having trouble hearing. Not wearing hearing aids. Also having sinus pressure and congestion x 2 weeks. Denies chest pain, SOB, wheezing, ear pain, sore throat. Patient admits to using Sinex regularly the last week +. PAST MEDICAL HISTORY Diagnosis Date Abdominal aortic aneurysm (AAA) without rupture ([facility]) 08/26/201708/2017: 3.7 cm Anemia Chronic diastolic CHF (congestive heart failure) ([facility]) 10/20/[address] Montes CKD (chronic kidney disease) stage 3, GFR 30-59 ml/min ([facility]) 02/20/2014 COVID-19 09/12/2021 DDD (degenerative disc disease), lumbar 08/26/2017 Diarrhea Diverticulosis of colon (without mention of hemorrhage) Hematoma of right iliopsoas muscle 06/21/2019 Internal hemorrhoids without mention of complication Lumbar radiculopathy 08/26/2017 Mixed hyperlipidemia Hyperlipidemia S/P carotid endarterectomy right 01/20/2021 Unspecified essential hypertension Essential hypertension ALLERGIES Clonidine, Crestor [Rosuvastatin Calcium], Lipitor [Atorvastatin Calcium], Lisinopril, and Statins [Pbmdtwl-Opn-Iqr Reductase Inhibitors] MEDICATIONS Current Outpatient Medications Medication Sig budesonide, enteric coated (ENTOCORT EC) 3 mg 24 hr capsule Take 3 capsules by mouth once daily. triamcinolone acetonide (KENALOG) 0.1 % cream apply to AFFECTED AREAS OF THE UPPER EXTREMITIES TWICE DAILY FOR ... (REFER TO PRESCRIPTION NOTES). pimecrolimus (ELIDEL) 1 % cream Apply to affected area twice daily. APPLY TO AFFECTED AREA [id number] 500-1,000-500 mg-unit-mcg cap Take by mouth. DESENEX 2 % powder apply to THE GROIN AREA twice a day doxazosin (CARDURA) 8 mg tablet Take 1 tablet by mouth daily at bedtime. hydrALAZINE (APRESOLINE) 100 mg tablet Take 1 tablet by mouth twice daily. losartan (COZAAR) 100 mg tablet Take 1 tablet by mouth once daily. furosemide (LASIX) 20 mg tablet Take 1 tablet by mouth once daily. colestipol (COLESTID) 1 gram tablet Take 1 tablet by mouth twice daily. For cholesterol. carvedilol (COREG) 12.5 mg tablet Take 1 tablet by mouth twice daily with meals. LOW-DOSE ASPIRIN ORAL Take 81 mg by mouth once daily. COMPOUNDED PRESCRIPTION Take 1 capsule by mouth once daily. [place] Q Plus glucosamine/chondr rich A sod (OSTEO BI-FLEX ORAL) Take 2 tablets by mouth once daily. Magnesium 200 mg tab Take 400 mg by mouth once daily. Ascorbic Acid 1,000 mg tablet Take 1,000 mg by mouth once daily. Garlic 1,000 mg cap Take 1 capsule by mouth once daily. Cholecalciferol, Vitamin D3, 25 mcg (1,000 unit) cap Take 5,000 Units by mouth once daily. multivit-minerals/FA/lycopene (ONE-A-DAY MEN'S ORAL) Take 1 tablet by mouth once daily. vitamin b complex (B COMPLETE) tab Take 1 tablet by mouth once daily. No current facility-administered medications for this visit. Facility-Administered Medications Ordered in Other Visits Medication Dose Route Frequency lidocaine (PF) 10 mg/mL (1 %) 1-2 mg injection (XYLOCAINE) 0.1-0.2 mL INTRADERMAL PRN lactated ringers iv infusion 30 mL/hr INTRAVENOUS CONTINUOUS SOCIAL HISTORY Social History Tobacco Use Smoking status: Former Packs/day: 1.00 Years: 2.00 Pack years: 2.00 Types: Cigarettes Quit date: 09/20/1964 Years since quittin.4 Smokeless tobacco: Never Vaping Use Vaping Use: Never used Substance Use Topics Alcohol use: No Drug use: No REVIEW OF SYSTEMS See HPI OBJECTIVE: BP 108/64 Pulse 64 Temp 36.1 C (96.9 F) Resp 16 Wt 73.5 kg (162 lb) SpO2 99% BMI 24.63 kg/m APPEARANCE Well appearing, alert, in no acute distress, well-hydrated, well nourished. EYES PERRLA, conjunctiva and sclera normal. EARS External ears normal, canals clear. Right TM dull, bulging, erythematous. Left TM normal. NOSE/SINUS Nares normal. Septum midline. Mucosa normal. No drainage or sinus tenderness. THROAT normal, no erythema NECK Supple, no adenopathy; HEART RRR with normal S1 and S2, LUNG clear to auscultation, No wheezing, rhonchi, rales. LEGS no calf TTP, negative Homans'. ASSESSMENT/PLAN: 1. Acute otitis media, left - ICD9: 382.9, ICD10: H66.92 (primary diagnosis) - Will begin treatment with as per antibiotic as written, see orders - The patient should also be given nasal saline gtts and suction prn for the first 5-7 days of treatment. - Follow up in 5-7 days if symptoms persist or worsen. - AMOXICILLIN 875 MG TABLET 2. Acute maxillary sinusitis, recurrence not specified - ICD9: 461.0, ICD10: J01.00 - The patient should also be given nasal saline gtts and suction prn for the first 5-7 days of treatment. - Supportive care with plenty of fluids, rest, and analgesia prn. - Follow up in 3-5 days if symptoms persist or worsen. Stop sinex. Can you saline nasal spray or flonase-rinse and gargle after use. The patient indicates understanding of these issues and agrees with the plan. Reviewed red flags and when to seek care sooner. Adrian Warner PA-C documented in this encounterV[facility]05-02-2023 Miscellaneous Notes* Telephone Encounter - Lorena Stubbs Ma - 01/19/2023 3:49 PM EDT Approved, pharmacy notified Submitted budesonide auth to insurance, pending response Lorena Stubbs CMA documented in this encounterVeter[facility]04-28-2023 Nurse Note* Cathleen Rodriguez RN - 01/15/2023 12:[address] Rodriguez at bedside to speak to patient. Verbalizes understanding. OK to d/c. [facility]04[facility] Note* Cathleen Rodriguez RN - 01/15/2023 12:[address] Rodriguez at bedside to speak to patient. Verbalizes understanding. OK to d/c. documented in this encounterV[facility]04-28-2023 History and physical note * Lisa Rodriguez MD - 01/15/2023 11:00 AM EDT HISTORY AND PHYSICAL Leana Camejo, 83 year old male Current history and physical on file: Yes Is a new History and Physical required for today's visit? No Indication for procedure: Diarrhea PROCEDURE(S) SCHEDULED FOR: Colonoscopy with or without biopsies and with or without removal of polyps or lesions, dilation (any means), treatment of bleeding (any means), based on clinical findings. BASELINE BEHAVIOR: Calm BASELINE ORIENTATION: A & O x3 All medications and allergies reviewed: Yes Skin Assessment: Warm dry mucus membranes pink Airway/Respiratory Assessment: Airway: visualization of the uvula- Yes Mouth: opening greater than 2 fingerbreadths- Yes Neck: full range of motion- Yes Breath sounds clear/equal- Yes Cardiac Assessment: Regular rate and rhythm without murmur Abdominal Assessment: Abdomen soft, non-tender, no masses or organomegaly. Sedation Plan: MAC Additional Comments: None Lisa Rodriguez MD [facility] Work Phone: 1(146) 482-348304-28-2023 History and physical note* Lisa Rodriguez MD - 01/15/2023 11:00 AM EDT HISTORY AND PHYSICAL Leana Camejo, 83 year old male Current history and physical on file: Yes Is a new History and Physical required for today's visit? No Indication for procedure: Diarrhea PROCEDURE(S) SCHEDULED FOR: Colonoscopy with or without biopsies and with or without removal of polyps or lesions, dilation (any means), treatment of bleeding (any means), based on clinical findings. BASELINE BEHAVIOR: Calm BASELINE ORIENTATION: A & O x3 All medications and allergies reviewed: Yes Skin Assessment: Warm dry mucus membranes pink Airway/Respiratory Assessment: Airway: visualization of the uvula- Yes Mouth: opening greater than 2 fingerbreadths- Yes Neck: full range of motion- Yes Breath sounds clear/equal- Yes Cardiac Assessment: Regular rate and rhythm without murmur Abdominal Assessment: Abdomen soft, non-tender, no masses or organomegaly. Sedation Plan: MAC Additional Comments: None Lisa Rodriguez MD documented in this encounterVeter[facility]04-20-2023 Instructions* Patient Instructions* Lisa Rodriguez MD - 01/07/2023 4:20 PM EDT Images from the original note were not included. Bowel Preparation Instructions for: Golytely, Nulytely, Trilyte or Colyte (polyethylene glycol 3350and electrolytes) IF YOU DO NOT FOLLOW THESE DIRECTIONS, YOUR COLONOSCOPY WILL BE CANCELLED. [place] Instructions: Your bowel must be empty so that your doctor can clearly view your colon. Follow all of the instructions in this handout EXACTLY as they are written. Do NOT eat any solid food the ENTIRE day before your colonoscopy. Drink only clear liquids. Buy your bowel preparation at least 5 days before your colonoscopy. TRANSPORTATION on the Day of Your Exam A responsible person MUST be present with you at Check In prior to your colonoscopy and REMAIN in the endoscopy area until you are discharged. You are NOT ALLOWED to drive, take a taxi or bus, or leave the Endoscopy Center ALONE. If you do not have a responsible escort car driver (family member or friend) with you to take you home, your exam cannot be done with sedation and will be cancelled. Please bring a list of all of your current medications, including any Over-the Counter medications with you. Medications If you take insulin, diabetic medications or blood thinners such as Coumadin (warfarin), Plavix (clopidogrel), Ticlid (ticlopidine hydrochloride), Agrylin (anagrelide), Xarelto (Rivaroxaban), Pradaxa(Dabigatran), Eliquis (Apixaban), and Effient (Prasugrel). You MUST call the doctors who orders those medicines for instructions on altering the dosage before your colonoscopy. All other medications should be taken the day of the exam with a sip of water including ASPIRIN. Five (5) Days Before Your Colonoscopy Do NOT take medicines that stop diarrhea - such as Imodium, Kaopectate, or Pepto Bismol. Do NOT take fiber supplements - such as Metamucil, Citrucel, or Perdiem. Do NOT take products that contain iron - such as multi-vitamins (the label lists what is in the products). Do NOT take Vitamin E. Buy the prescription bowel preparation solution at your local pharmacy or drugstore pharmacy. 08/2019 Bowel Preparation Instructions for: Golytely, Nulytely, Trilyte or Colyte (polyethylene glycol 3350and electrolytes) Three (3) Days Before Your Colonoscopy Do NOT eat high-fiber foods - such as popcorn, beans, seeds (flax, sunflower, quinoa), multigrain bread, nuts, salad/vegetables, or fresh and dried fruit. One (1) Day Before Your Colonoscopy Only drink clear liquids the ENTIRE DAY before your colonoscopy. Do NOT eat any solid foods. Drink at least 8 ounces of clear liquids every hour after waking up. The clear liquids you can drink include: Clear Liquid (NO RED LIQUIDS) DO NOT DRINK Gatorade, Pedialyte or Powerade Clear broth or bouillon Coffee or tea (no milk or non-dairy creamer) Carbonated and non-carbonated soft drinks Master-Aid or other fruit flavored drinks Strained fruit juices (no pulp) Jell-O, popsicles, hard candy Water Alcohol Milk or non-dairy creamers Noodles or vegetables in soup Juice with pulp Liquid you cannot see through Do not use tobacco/vaping products The bowel preparation solution will be consumed in two parts. Mix the solution the evening before your colonoscopy and refrigerate before drinking. You may add the flavor pack that came with the bowel preparation. Do NOT add ice, sugar or any other flavorings to the solution. Part 1 At 6:00 PM - Evening before your colonoscopy Drink an 8-oz glass of bowel preparation every 10 minutes for a total of 8 glasses. You may continue to drink clear liquids until midnight. Part 2 On the day of your colonoscopy you may drink clear liquids up to (three) 3 hours before your procedure. 4 1/2 hours before your colonoscopy Drink an 8-oz glass of bowel preparation every 10 minutes for a total of 8 glasses. Fifteen (15) minutes later, drink an 8-oz glass of clear liquids every 15 minutes for a total of 2 glasses. You may continue to drink clear liquids up to (three) 3 hours before your exam. 2 08/2019 documented in this encounterVeterans [facility] Administration04-20-2023 History of Present illness Narrative* Lisa Rodriguez MD - 01/07/2023 4:03 PM EDT Diarrhea HPI:Leana Camejo is a 83 year old male who presents for Diarrhea. He is c/o- chronic diarrhea for last 6-8 weeks. He has 4-5 BM daily. He has to watkins to restroom quick or he will have fecal incontinence. Denies any abdominal pain. No h/o- nausea, vomiting, loss of appetite, hematemesis, bleeding VT, unexplained weight loss, tenesmus, nocturnal diarrhea. His stool calprotectin was elevated. C diff was negative. He had screening colonoscopy in May 2020 which was unremarkable. PAST MEDICAL HISTORY Diagnosis Date Abdominal aortic aneurysm (AAA) without rupture ([facility]) 08/26/201708/2017: 3.7 cm Anemia Chronic diastolic CHF (congestive heart failure) ([facility]) 10/20/[address] Montes CKD (chronic kidney disease) stage 3, GFR 30-59 ml/min ([facility]) 02/20/2014 COVID-19 09/12/2021 DDD (degenerative disc disease), lumbar 08/26/2017 Diarrhea Diverticulosis of colon (without mention of hemorrhage) Hematoma of right iliopsoas muscle 06/21/2019 Internal hemorrhoids without mention of complication Lumbar radiculopathy 08/26/2017 Mixed hyperlipidemia Hyperlipidemia S/P carotid endarterectomy right 01/20/2021 Unspecified essential hypertension Essential hypertension PAST SURGICAL HISTORY Procedure Laterality Date ARTHRP ACETBLR/PROX FEM PROSTC AGRFT/ALGRFT 08/02/2006 Hip replacement, total, Right BLEPHAROPLASTY, UPPER EYELID 2013 CAROTID ENDARTERECTOMY Right 01/20/2021 w/ bovine patch angioplasty COLONOSCOPY FLX DX W/COLLJ SPEC WHEN PFRMD 03/18/2001 anemia COLONOSCOPY FLX DX W/COLLJ SPEC WHEN PFRMD 05/13/2010 repeat 10 yrs COLONOSCOPY FLX DX W/COLLJ SPEC WHEN PFRMD 05/21/2020 Colonoscopy ENTEROLSS FRING INTSTINAL ADHESION SPX 07/29/2015 ESOPHAGOGASTRODUODENOSCOPY TRANSORAL DIAGNOSTIC 03/18/2001 anemia ESOPHAGOGASTRODUODENOSCOPY TRANSORAL DIAGNOSTIC 05/21/2020 EGD I&D HEMATOMA Right 07/19/2019 CT guided aspiration, iliopsoas hematoma LAPAROSCOPY SURG RPR INITIAL INGUINAL HERNIA 07/29/2015 LAPS RPR RECURRENT INCISIONAL HERNIA REDUCIBLE 07/29/2015 PAST SURGICAL HISTORY OF 09/09/2015 left total knee arthroplasty PAST SURGICAL HISTORY OF 09/15/2017 micro-disectomy L4-L5, with microcompression bilaterally. PAST SURGICAL HISTORY OF Right 12/16/2018 Repair of complex lateral meniscus tear, Right knee REPAIR UMBILICAL HERNIA 1980 Dr. Henry STRESS TEST 09/03/2017 normal Allergies: ALLERGIES Allergen Reactions Clonidine Crestor [Rosuvastat* Lipitor [Atorvastat* Lisinopril Rash Statins [Statins-Hm* Medications: triamcinolone acetonide (KENALOG) 0.1 % cream apply to AFFECTED AREAS OF THE UPPER EXTREMITIES TWICE DAILY FOR ... (REFER TO PRESCRIPTION NOTES). pimecrolimus (ELIDEL) 1 % cream Apply to affected area twice daily. APPLY TO AFFECTED AREA [id number] 500-1,000-500 mg-unit-mcg cap Take by mouth. DESENEX 2 % powder apply to THE GROIN AREA twice a day doxazosin (CARDURA) 8 mg tablet Take 1 tablet by mouth daily at bedtime. hydrALAZINE (APRESOLINE) 100 mg tablet Take 1 tablet by mouth twice daily. losartan (COZAAR) 100 mg tablet Take 1 tablet by mouth once daily. furosemide (LASIX) 20 mg tablet Take 1 tablet by mouth once daily. colestipol (COLESTID) 1 gram tablet Take 1 tablet by mouth twice daily. For cholesterol. carvedilol (COREG) 12.5 mg tablet Take 1 tablet by mouth twice daily with meals. LOW-DOSE ASPIRIN ORAL Take 81 mg by mouth once daily. COMPOUNDED PRESCRIPTION Take 1 capsule by mouth once daily. [place] Q Plus glucosamine/chondr rich A sod (OSTEO BI-FLEX ORAL) Take 2 tablets by mouth once daily. Magnesium 200 mg tab Take 400 mg by mouth once daily. Ascorbic Acid 1,000 mg tablet Take 1,000 mg by mouth once daily. Garlic 1,000 mg cap Take 1 capsule by mouth once daily. Cholecalciferol, Vitamin D3, 25 mcg (1,000 unit) cap Take 5,000 Units by mouth once daily. multivit-minerals/FA/lycopene (ONE-A-DAY MEN'S ORAL) Take 1 tablet by mouth once daily. vitamin b complex (B COMPLETE) tab Take 1 tablet by mouth once daily. FAMILY HISTORY Problem Relation Age of Onset Cancer Mother oral Cancer Father Lymphnode, Lung, Liver other (brain tumor) Other Employer And Job Title: None on file Years Of Education Completed: Not specified Marital Status: Social History Tobacco Use Smoking status: Former Packs/day: 1.00 Years: 2.00 Pack years: 2.00 Types: Cigarettes Quit date: 09/20/1964 Years since quittin.3 Smokeless tobacco: Never Vaping Use Vaping Use: Never used Substance Use Topics Alcohol use: No Drug use: No Review of Systems: Review of Systems I have confirmed and edited as necessary, the PFSH and ROS obtained by others. Hemoglobin (g/dL) Date Value 07/17/2022 13.3 07/02/2021 12.3 Hematocrit (%) Date Value 07/17/2022 41.5 07/02/2021 38.2 WBC (k/uL) Date Value 07/17/2022 6.64 07/02/2021 5.73 Platelet Count (k/uL) Date Value 07/17/2022 160 07/02/2021 137 CMP: Glucose 98 07/17/2022 BUN 25 07/17/2022 Creatinine, Whole Blood (iSTAT) 1.35 07/17/2022 Sodium 141 07/17/2022 Potassium 4.4 07/17/2022 Chloride 105 07/17/2022 CO2 27 07/17/2022 Protein, Total 6.6 07/17/2022 Albumin 4.1 07/17/2022 Calcium 9.2 07/17/2022 Alkaline Phosphatase 46 07/17/2022 Bilirubin, Total 0.7 07/17/2022 AST 21 07/17/2022 ALT 13 07/17/2022 Physical Examination: BP 114/68 Pulse 74 Ht 5' 8 (1.73m) Wt 160 lb (72.6kg) BMI 24.33 kg/(m^2). General appearance: Well appearing, alert, in no acute distress, well-hydrated, well nourished. Skin: Skin color, texture, turgor normal Head: Normocephalic, no masses, lesions, tenderness or abnormalities Eyes: Anicteric sclera. Pupils are equally round. Oropharynx: Lips, mucosa, and tongue normal, teeth and gums normal, oropharynx normal Neck: Supple, no adenopathy; thyroid symmetric, normal size, no bruits Lungs: Lungs clear to auscultation. No wheezing, rhonchi, rales. Heart: RRR without murmur, gallop, or rubs. No ectopy Abdomen: Normal abdominal exam, Abdomen soft, non-tender. Bowel sounds normal. No masses, organomegaly Extremities: No deformities, edema, skin discoloration, clubbing or cyanosis. Good capillary refill. ASSESSMENT: 83 year old male patient who is in our clinic with chronic diarrhea with elevated stool calprotectin. C diff is negative. R/o- IBD PLAN: Will plan colonoscopy Lisa Rodriguez MD DATE: 01/07/23 TIME: 4:06 PM documented in this encounterVeterans Health Administration04-12-2023 Instructions* Patient Instructions* Dallas Reed MD - 12/30/2022 12:27 PM EDT AVOID DAIRY. documented in this encounterVeterans Health Administration04-12-2023 History of Present illness Narrative* Dallas Reed MD - 12/30/2022 12:15 PM EDT This note was created using [employer]. Subjective Leana Camejo is a 82 year old male. He started having diarrhea 12/19, with loose to watery, non bloody stools 2-4 times per day. He did not feel ill. His was not ill. There was no unusual food intake, antibiotic use, or travel. He went to [facility] last week and was advised imodium.This helped but diarrhea was persisting. He had similar issues in the past. Review of Systems Constitutional: Positive for unexpected weight change. Negative for appetite change, chills, diaphoresis and fever. HENT: Negative for sore throat and trouble swallowing. Respiratory: Negative for cough and shortness of breath. Cardiovascular: Negative for chest pain, palpitations and leg swelling. Gastrointestinal: Negative for abdominal pain, anal bleeding, blood in stool, constipation, nausea and vomiting. Genitourinary: Negative for difficulty urinating. 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 hydrALAZINE (APRESOLINE) 100 mg tablet Take 1 tablet by mouth twice daily. losartan (COZAAR) 100 mg tablet Take 1 tablet by mouth once daily. furosemide (LASIX) 20 mg tablet Take 1 tablet by mouth once daily. colestipol (COLESTID) 1 gram tablet Take 1 tablet by mouth twice daily. For cholesterol. carvedilol (COREG) 12.5 mg tablet Take 1 tablet by mouth twice daily with meals. LOW-DOSE ASPIRIN ORAL Take 81 mg by mouth once daily. COMPOUNDED PRESCRIPTION Take 1 capsule by mouth once daily. [place] Q Plus glucosamine/chondr rich A sod (OSTEO BI-FLEX ORAL) Take 2 tablets by mouth once daily. Magnesium 200 mg tab Take 400 mg by mouth once daily. Ascorbic Acid 1,000 mg tablet Take 1,000 mg by mouth once daily. Garlic 1,000 mg cap Take 1 capsule by mouth once daily. Cholecalciferol, Vitamin D3, 25 mcg (1,000 unit) cap Take 5,000 Units by mouth once daily. multivit-minerals/FA/lycopene (ONE-A-DAY MEN'S ORAL) Take 1 tablet by mouth once daily. vitamin b complex (B COMPLETE) tab Take 1 tablet by mouth once daily. No current facility-administered medications for this visit. Objective BP 132/80 Pulse 64 Temp 36.3 C (97.4 F) (Tympanic) Resp 16 Wt 72.3 kg (159 lb 8 oz) BMI 24.25 kg/m Physical Exam Constitutional: General: He is not in acute distress. Appearance: He is not ill-appearing or diaphoretic. Cardiovascular: Rate and Rhythm: Normal rate and regular rhythm. Heart sounds: No murmur heard. No gallop. Pulmonary: Breath sounds: Normal breath sounds. No wheezing or rales. Abdominal: General: Abdomen is flat. Bowel sounds are normal. Palpations: Abdomen is soft. There is no mass. Tenderness: There is no abdominal tenderness. Musculoskeletal: Right lower leg: No edema. Left lower leg: No edema. Neurological: Mental Status: He is alert. Gait: Gait normal. Assessment and Plan 1. Diarrhea, unspecified type - ICD9: 787.91, ICD10: R19.7 - Continue hydration and imodium as needed. - C. DIFFICILE PCR - FECAL LACTOFERRIN/LEUKOCYTES - CALPROTECTIN,FECAL 2. Chronic diastolic CHF (congestive heart failure) (HCC) - ICD9: 428.32, 428.0, ICD10: I50.32 Stable. 3. Abdominal aortic aneurysm (AAA) without rupture, unspecified part (HCC) - ICD9: 441.4, ICD10: I71.40 Stable and scheduled for a recheck with Dr. Perez. Dallas Reed MD documented in this encounterVeterans Health Administration10-14-2022 History of Present illness Narrative* Gavin Rivero, TECHNICAL TRAINING SPECIALIST.RIDDLER OPERATOR - 07/03/2022 5:05 PM EDT Subjective HPI Nontoxic-appearing male presents urgent care chief plaint loose stools. Duration of symptoms 1 week. Associated symptoms loose stools. Patient states initially he had watery stools. This has since subsided. States stools are becoming more firm. Has 3-4 loose stools a day. No blood. States he does have some abdominal pain before loose stools that does subside after bowel movements. Denies any known sick contacts. Denies any blood or mucus in stools. Denies fever body aches chills cough chest pain shortness of breath pleuritic pain hemoptysis nausea vomiting abdominal pain or rashes. History ofdiverticulosis. Past medical history prescription medication use allergies reviewed. .Patient presents with: Diarrhea: Diarrhea x 1 week PAST MEDICAL HISTORY Diagnosis Date Abdominal aortic aneurysm (AAA) without rupture 08/26/201708/2017: 3.7 cm Anemia Chronic diastolic CHF (congestive heart failure) ([facility]) 10/20/[address] Montes CKD (chronic kidney disease) stage 3, GFR 30-59 ml/min ([facility]) 02/20/2014 COVID-19 09/12/2021 DDD (degenerative disc disease), lumbar 08/26/2017 Diarrhea Diverticulosis of colon (without mention of hemorrhage) Hematoma of right iliopsoas muscle 06/21/2019 Internal hemorrhoids without mention of complication Lumbar radiculopathy 08/26/2017 Mixed hyperlipidemia Hyperlipidemia S/P carotid endarterectomy right 01/20/2021 Unspecified essential hypertension Essential hypertension PAST SURGICAL HISTORY Procedure Laterality Date ARTHRP ACETBLR/PROX FEM PROSTC AGRFT/ALGRFT 08/02/2006 Hip replacement, total, Right BLEPHAROPLASTY, UPPER EYELID 2013 CAROTID ENDARTERECTOMY Right 01/20/2021 w/ bovine patch angioplasty COLONOSCOPY FLX DX W/COLLJ SPEC WHEN PFRMD 03/18/2001 anemia COLONOSCOPY FLX DX W/COLLJ SPEC WHEN PFRMD 05/13/2010 repeat 10 yrs COLONOSCOPY FLX DX W/COLLJ SPEC WHEN PFRMD 05/21/2020 Colonoscopy ENTEROLSS FRING INTSTINAL ADHESION SPX 07/29/2015 ESOPHAGOGASTRODUODENOSCOPY TRANSORAL DIAGNOSTIC 03/18/2001 anemia ESOPHAGOGASTRODUODENOSCOPY TRANSORAL DIAGNOSTIC 05/21/2020 EGD I&D HEMATOMA Right 07/19/2019 CT guided aspiration, iliopsoas hematoma LAPAROSCOPY SURG RPR INITIAL INGUINAL HERNIA 07/29/2015 LAPS RPR RECURRENT INCISIONAL HERNIA REDUCIBLE 07/29/2015 PAST SURGICAL HISTORY OF 09/09/2015 left total knee arthroplasty PAST SURGICAL HISTORY OF 09/15/2017 micro-disectomy L4-L5, with microcompression bilaterally. PAST SURGICAL HISTORY OF Right 12/16/2018 Repair of complex lateral meniscus tear, Right knee REPAIR UMBILICAL HERNIA 1980 Dr. Henry STRESS TEST 09/03/2017 normal ALLERGIES Clonidine, Crestor [Rosuvastatin Calcium], Lipitor [Atorvastatin Calcium], Lisinopril, and Statins [Jlbswkl-Udv-Vke Reductase Inhibitors] MEDICATIONS losartan (COZAAR) 100 mg tablet Take 1 tablet by mouth once daily. furosemide (LASIX) 20 mg tablet Take 1 tablet by mouth once daily. colestipol (COLESTID) 1 gram tablet Take 1 tablet by mouth twice daily. For cholesterol. carvedilol (COREG) 12.5 mg tablet Take 1 tablet by mouth twice daily with meals. doxazosin (CARDURA) 4 mg tablet Take 3 tablets by mouth daily at bedtime. hydrALAZINE (APRESOLINE) 100 mg tablet Take 1 tablet by mouth four times daily. (Patient taking differently: Take 100 mg by mouth twice daily.) LOW-DOSE ASPIRIN ORAL Take 81 mg by mouth once daily. [place]-3 1,050 mg, Fish Oil, 1,050-1,200 mg cap Take by mouth twice daily. COMPOUNDED PRESCRIPTION Take 1 capsule by mouth once daily. [place] Q Plus glucosamine/chondr rich A sod (OSTEO BI-FLEX ORAL) Take 2 tablets by mouth once daily. Magnesium 200 mg tab Take 400 mg by mouth once daily. Ascorbic Acid 1,000 mg tablet Take 1,000 mg by mouth once daily. Garlic 1,000 mg cap Take 1 capsule by mouth once daily. Cholecalciferol, Vitamin D3, 25 mcg (1,000 unit) cap Take 5,000 Units by mouth once daily. multivit-minerals/FA/lycopene (ONE-A-DAY MEN'S ORAL) Take 1 tablet by mouth once daily. vitamin b complex (B COMPLETE) tab Take 1 tablet by mouth once daily. FAMILY HISTORY Problem Relation Age of Onset Cancer Mother oral Cancer Father Lymphnode, Lung, Liver other (brain tumor) Other Social History Tobacco Use Smoking status: Former Packs/day: 1.00 Years: 2.00 Pack years: 2.00 Types: Cigarettes Quit date: 09/20/1964 Years since quittin.8 Smokeless tobacco: Never Vaping Use Vaping Use: Never used Substance Use Topics Alcohol use: No Drug use: No BP 122/78 Pulse 69 Temp 36.3 C (97.4 F) (Tympanic) Resp 18 Wt 76.1 kg (167 lb 12.8 oz) SpO2 98% BMI 25.70 kg/m Review of Systems Constitutional: Negative for chills, fever and malaise/fatigue. HENT: Negative for congestion, ear discharge, ear pain, sinus pain and sore throat. Eyes: Negative for blurred vision, pain, discharge and redness. Respiratory: Negative for cough, hemoptysis, sputum production, shortness of breath, wheezing and stridor. Cardiovascular: Negative for chest pain. Gastrointestinal: Positive for diarrhea. Negative for abdominal pain, blood in stool, constipation,melena, nausea and vomiting. Musculoskeletal: Negative for myalgias. Skin: Negative for itching and rash. Neurological: Negative for dizziness and headaches. Objective Physical Exam Constitutional: General: He is not in acute distress. Appearance: He is not diaphoretic. HENT: Head: Normocephalic. Eyes: Conjunctiva/sclera: Conjunctivae normal. Pupils: Pupils are equal, round, and reactive to light. Cardiovascular: Rate and Rhythm: Normal rate and regular rhythm. Heart sounds: Normal heart sounds. Pulmonary: Effort: Pulmonary effort is normal. No tachypnea, accessory muscle usage or respiratory distress. Breath sounds: Normal breath sounds. No stridor. No wheezing, rhonchi or rales. Abdominal: General: Bowel sounds are normal. Palpations: Abdomen is soft. Tenderness: There is no abdominal tenderness. There is no guarding or rebound. Musculoskeletal: Cervical back: Normal range of motion. Skin: General: Skin is warm and dry. Neurological: Mental Status: He is alert and oriented to person, place, and time. ASSESSMENT/PLAN: 1. Loose stools - ICD9: 787.7, ICD10: R19.5 - OVA + PARA MICROSCOPIC - ENTERIC BACTERIAL PANEL BY PCR - C. DIFFICILE PCR Patient diagnosed with loose stool. It does seem stools are becoming more firm and less number between stools than previous during this illness. Patient denies any constitutional symptoms currently. Orders for stool studies will be placed. 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 Patient was educated on supportive therapies. Patient will follow up with primary care provider in 3-4 days. Patient was instructed to immediately proceed to emergency room for any new, worsening, orsymptoms lasting longer than anticipated. The patient's clinical presentation is otherwise unremarkable at this time. Based on exam and clinical finding, the patient is stable for discharge. Plan of care was discussed with patient. Patient verbalizes understanding and agrees to plan of care. This note was generated using Pangalore software. It may contain errors in wording, punctuation, or spelling. Gavin Rivero APRN.SHAWNA documented in this encounterVeterans Health Administration09-06-2022 Miscellaneous Notes* Telephone Encounter - Maribell Huston LPN - 05/26/2022 11:47 AM EDT Pt has refills of carvedilol. The others would be needed. * Telephone Encounter - Vicky Mehta - 05/26/2022 8:59 AM EDT Pharmacy verified in [facility] Patient has been identified by name and date of : Yes Patient aware RX will be sent to pharmacy. No need to notify patient. Patient phones for refill(s): Requested Prescriptions Pending Prescriptions Disp Refills carvedilol (COREG) 12.5 mg tablet 180 tablet 3 Sig: Take 1 tablet by mouth twice daily with meals. losartan (COZAAR) 100 mg tablet 90 tablet 3 Sig: Take 1 tablet by mouth once daily. furosemide (LASIX) 20 mg tablet 90 tablet 3 Sig: Take 1 tablet by mouth once daily. Date of last office visit : 01/13/2022 Date of next office visit : 07/15/2022 Last 2 Encounter Wt Readings: Date: Wt: 02/17/2022 77.2 kg (170 lb 3.2 oz) 01/13/2022 73.9 kg (163 lb) Not applicable Please advise. 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 Pharmacy is the same [facility] as the other med. colestipol (COLESTID) 1 gram tablet (Discontinued) 180 tablet 1 02/14/2021 07/09/2021 Sig: Take 1 tablet by mouth twice daily. For cholesterol. * Telephone Encounter - Vicky Garcia Pss - 03/11/2022 9:17 AM EDT Pharmacy verified in [facility] Patient has been identified by name and date of : Yes Patient aware RX will be sent to pharmacy. No need to notify patient. Patient phones for refill(s): Pending Prescriptions Disp Refills CARVEDILOL 12.5 MG TABLET 180 tablet 3 Sig: Take 1 tablet by mouth twice daily with meals. KEVIN: No Date of last office visit : 01/13/2022 Date of next office visit : 07/15/2022 Last 2 Encounter Wt Readings: Date: Wt: 02/17/2022 77.2 kg (170 lb 3.2 oz) 01/13/2022 73.9 kg (163 lb) Please advise. Vicky Garcia Pss 1 documented in this encounterVeterans Health Administration06-01-2022 Miscellaneous Notes* Telephone Encounter - Chrissy Worrell - 02/18/2022 8:24 AM EDT Patient given results and verbalized understanding of instructions given. Chrissy Worrell * Telephone Encounter - Elsie Boudreaux APRN.CNP - 02/18/2022 7:38 AM EDT Please inform patient of positive COVID results Utilize current CDC recommendations Quarantine for 5 days from onset of symptoms, and then 5 days after that wearing a mask in front ofothers and when out and about. COVID is viral in nature. Treatment is aimed at symptom management. May utilize over the counter medicines as directed. Follow up with PCP in regards to potential monoclonal ATB infusion. Chart CC to Dr. Reed as well. documented in this encounterVeterans Health Administration05-31-2022 History of Present illness Narrative* Nona Maloney APRN.CNP - 02/17/2022 11:48 AM EDT CC: Patient presents with: Cough: Pt denied SOB, chest pain, exposure +Covid family, bodyaches, fever Nasal Congestion HPI: Leana Camejo is a 82 year old male who presents to the office with complaint of cough, nonproductive and fever for the past day. Symptoms are staying the same. Associated symptoms includes body aches. Denies nausea, vomiting and diarrhea. Treatments tried include nothing so far. with no relief of symptoms. Sick contacts: yes. History of asthma, frequent episodes of bronchitis, chronic bronchitis, bronchiectasis or COPD: No Smoker: No Seasonal/environmental allergies: No The ROS is otherwise negative. The patient's pmh, medications, allergies, and past visits are reviewed. PHYSICAL EXAM: BP 122/68 Pulse 82 Temp 37.4 C (99.4 F) Resp 20 Wt 77.2 kg (170 lb 3.2 oz) SpO2 96% BMI26.07 kg/m General appearance: alert, cooperative, pleasant, in no acute distress Head: Normocephalic Eyes: EOM's intact, conjunctiva pink and moist, no icterus, sclera white, non-injected Heart: Negative. RRR without obvious murmur, gallop, or rubs. No ectopy. Lungs: clear to auscultation, without rales or wheeze, good air exchange PAST MEDICAL HISTORY Diagnosis Date Abdominal aortic aneurysm (AAA) without rupture ([facility]) 08/26/201708/2017: 3.7 cm Anemia Chronic diastolic CHF (congestive heart failure) ([facility]) 10/20/[address] Montes CKD (chronic kidney disease) stage 3, GFR 30-59 ml/min ([facility]) 02/20/2014 COVID-19 09/12/2021 DDD (degenerative disc disease), lumbar 08/26/2017 Diarrhea Diverticulosis of colon (without mention of hemorrhage) Hematoma of right iliopsoas muscle 06/21/2019 Internal hemorrhoids without mention of complication Lumbar radiculopathy 08/26/2017 Mixed hyperlipidemia Hyperlipidemia S/P carotid endarterectomy right 01/20/2021 Unspecified essential hypertension Essential hypertension PAST SURGICAL HISTORY Procedure Laterality Date ARTHRP ACETBLR/PROX FEM PROSTC AGRFT/ALGRFT 08/02/2006 Hip replacement, total, Right BLEPHAROPLASTY, UPPER EYELID 2013 CAROTID ENDARTERECTOMY Right 01/20/2021 w/ bovine patch angioplasty COLONOSCOPY FLX DX W/COLLJ SPEC WHEN PFRMD 03/18/2001 anemia COLONOSCOPY FLX DX W/COLLJ SPEC WHEN PFRMD 05/13/2010 repeat 10 yrs COLONOSCOPY FLX DX W/COLLJ SPEC WHEN PFRMD 05/21/2020 Colonoscopy ENTEROLSS FRING INTSTINAL ADHESION SPX 07/29/2015 ESOPHAGOGASTRODUODENOSCOPY TRANSORAL DIAGNOSTIC 03/18/2001 anemia ESOPHAGOGASTRODUODENOSCOPY TRANSORAL DIAGNOSTIC 05/21/2020 EGD I&D HEMATOMA Right 07/19/2019 CT guided aspiration, iliopsoas hematoma LAPAROSCOPY SURG RPR INITIAL INGUINAL HERNIA 07/29/2015 LAPS RPR RECURRENT INCISIONAL HERNIA REDUCIBLE 07/29/2015 PAST SURGICAL HISTORY OF 09/09/2015 left total knee arthroplasty PAST SURGICAL HISTORY OF 09/15/2017 micro-disectomy L4-L5, with microcompression bilaterally. PAST SURGICAL HISTORY OF Right 12/16/2018 Repair of complex lateral meniscus tear, Right knee REPAIR UMBILICAL HERNIA 1980 Dr. Henry STRESS TEST 09/03/2017 normal ALLERGIES Clonidine, Crestor [Rosuvastatin Calcium], Lipitor [Atorvastatin Calcium], Lisinopril, and Statins [Bqjnibz-Yiz-Uzu Reductase Inhibitors] MEDICATIONS carvedilol (COREG) 12.5 mg tablet Take 1 tablet by mouth twice daily with meals. furosemide (LASIX) 20 mg tablet Take 1 tablet by mouth once daily. doxazosin (CARDURA) 4 mg tablet Take 3 tablets by mouth daily at bedtime. losartan (COZAAR) 100 mg tablet Take 1 tablet by mouth once daily. hydrALAZINE (APRESOLINE) 100 mg tablet Take 1 tablet by mouth four times daily. LOW-DOSE ASPIRIN ORAL Take 81 mg by mouth once daily. [place]-3 1,050 mg, Fish Oil, 1,050-1,200 mg cap Take by mouth twice daily. COMPOUNDED PRESCRIPTION Take 1 capsule by mouth once daily. [place] Q Plus glucosamine/chondr rich A sod (OSTEO BI-FLEX ORAL) Take 2 tablets by mouth once daily. Magnesium 200 mg tab Take 400 mg by mouth once daily. Ascorbic Acid (VITAMIN C) 1,000 mg tablet Take 1,000 mg by mouth once daily. Garlic 1,000 mg cap Take 1 capsule by mouth once daily. Cholecalciferol, Vitamin D3, (VITAMIN D) 1,000 unit cap Take 5,000 Units by mouth once daily. multivit-minerals/FA/lycopene (ONE-A-DAY MEN'S ORAL) Take 1 tablet by mouth once daily. vitamin b complex (B COMPLETE) tab Take 1 tablet by mouth once daily. FAMILY HISTORY Problem Relation Age of Onset Cancer Mother oral Cancer Father Lymphnode, Lung, Liver other (brain tumor) Other Social History Tobacco Use Smoking status: Former Smoker Packs/day: 1.00 Years: 2.00 Pack years: 2.00 Types: Cigarettes Quit date: 09/20/1964 Years since quittin.4 Smokeless tobacco: Never Used Vaping Use Vaping Use: Never used Substance Use Topics Alcohol use: No Drug use: No ASSESSMENT/PLAN: 1. Cough - ICD9: 786.2, ICD10: R05.9 (primary diagnosis) - COVID WITH FLUA+B, ROUTINE 2. Acute upper respiratory infection, unspecified - ICD9: 465.9, ICD10: J06.9 - COVID WITH FLUA+B, ROUTINE Patient has had covid before so understood the protocol. Potential red flag symptoms discussed withthe patient. Reviewed appropriate action plan to take if red flag symptoms occur. Patient agreeableto treatment plan. Nona Maloney APRN.SHAWNA documented in this encounterVeterans Health Administration05-24-2022 History of Present illness Narrative* Janelle Sanchez LPN - 02/10/2022 9:05 AM EDT Manual Readin/76 Pulse: 62 Reason for blood pressure check - Last BP elevated Patient is: Taking medication as prescribed No Took medication today Yes If no, date medication last taken N/A Experiencing side effects No BP was elevated at last appt 01/13/22. No BP medication changes were made at that time. Reports thathe has only been taking the Hydralazine about twice daily. Denies any chest pain, shortness of breath, dizziness, or headaches. Daily caffeine use. Past personal history of tobacco use; no current exposure. Alert and oriented. Pt has been identified by name and birthdate: Yes Allergies reviewed: Yes Latex allergy: no. Medication - prescribed and OTC reviewed and updated: Yes Do you need any prescription refills prior to your next visit: No Health Maintenance: Reviewed and not up to date and provider notified Patient advised to continue with current medications and would be contacted if any further instructions after review by PCP. Janelle Sanchez LPN documented in this encounterVeterans Health Administration05-23-2022 History of Present illness Narrative* Denver Elizalde RN - 02/09/2022 12:59 PM EDT [facility] CD[facility] Engagement Provider Action/FYI: Call to Pt left a message to verify CHF/ CKD symptom status and needs provided. Insight Questionnaire location reminder provided. Contact Made with Patient: No, second attempt, left message. Blaise Camejo. This is Fide Goff RN your Middle School Sports Coach from the [facility]. I am calling to check in with you concerning the MyChart questionnaire you have been receiving from me. I will call you again next week and am looking forward to speaking with you. (Care Coordinatorenters next week's date in next patient outreach) Fide Goff RN February 09, 2022 12:59 PM documented in this encounterVeterans Health Administration05-20-2022 History of Present illness Narrative* Denver Elizalde RN - 02/06/2022 3:38 PM EDT [facility] CDM Engagement Provider Action/FYI: Call to Pt left message to verify CHF/ CKD or other symptom status and needs. Contact Made with Patient: No, first attempt, left message. Blaise Camejo. This is Fide Goff RN your Middle School Sports Coach from the [facility]. I am calling to check in with you concerning the MyChart questionnaire you have been receiving from me. I will call you again tomorrow and am looking forward to speaking with you. (Middle School Sports Coach enters next day in next patient outreach) Fide Goff RN February 06, 2022 3:38 PM documented in this encounterVeterans Health Administration04-26-2022 History of Present illness Narrative* Dallas Reed MD - 01/13/2022 8:56 AM EDT This note was created using [employer]. Geno Salmonlps is a 82 year old male. He recovered from Covid in August. He went to [facility] in [facility] for IV vitamin infusions. He just had his abdominal aortic aneurysm ultrasound done. He was taking all his medications. [facility] and Dr. Perez for abdominal aortic aneurysm. Review of Systems Constitutional: Negative. Respiratory: Negative. Cardiovascular: Negative. Gastrointestinal: Negative. Neurological: Negative. 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 doxazosin (CARDURA) 4 mg tablet Take 3 tablets by mouth daily at bedtime. losartan (COZAAR) 100 mg tablet Take 1 tablet by mouth once daily. hydrALAZINE (APRESOLINE) 100 mg tablet Take 1 tablet by mouth four times daily. LOW-DOSE ASPIRIN ORAL Take 81 mg by mouth once daily. carvedilol (COREG) 12.5 mg tablet Take 1 tablet by mouth twice daily with meals. [place]-3 1,050 mg, Fish Oil, 1,050-1,200 mg cap Take by mouth twice daily. COMPOUNDED PRESCRIPTION Take 1 capsule by mouth once daily. [place] Q Plus glucosamine/chondr rich A sod (OSTEO BI-FLEX ORAL) Take 2 tablets by mouth once daily. Magnesium 200 mg tab Take 400 mg by mouth once daily. Ascorbic Acid (VITAMIN C) 1,000 mg tablet Take 1,000 mg by mouth once daily. Garlic 1,000 mg cap Take 1 capsule by mouth once daily. Cholecalciferol, Vitamin D3, (VITAMIN D) 1,000 unit cap Take 5,000 Units by mouth once daily. multivit-minerals/FA/lycopene (ONE-A-DAY MEN'S ORAL) Take 1 tablet by mouth once daily. vitamin b complex (B COMPLETE) tab Take 1 tablet by mouth once daily. ivermectin (STROMECTOL) 3 mg tab 2 tablets per week from online doctor (Hollie 19 prevention) (Patient not taking: Reported on 01/13/2022 ) No current facility-administered medications for this visit. Objective BP 150/64 (BP Site: Left Arm, BP Position: Sitting, BP Cuff Size: Large Adult) Pulse 60 Temp 36.4 C (97.5 F) (Temporal Artery) Resp 20 Wt 73.9 kg (163 lb) BMI 24.97 kg/m Physical Exam Constitutional: Appearance: He is not ill-appearing. Cardiovascular: Rate and Rhythm: Normal rate and regular rhythm. Heart sounds: No murmur heard. No gallop. Pulmonary: Effort: No respiratory distress. Breath sounds: Normal breath sounds. No wheezing or rales. Musculoskeletal: Right lower leg: No edema. Left lower leg: No edema. Neurological: General: No focal deficit present. Mental Status: He is alert. Gait: Gait normal. Assessment and Plan 1. Stage 3a chronic kidney disease (HCC) - ICD9: 585.3, ICD10: N18.31 (primary diagnosis) Recheck today. - BASIC METABOLIC PNL - CBC 2. Chronic diastolic CHF (congestive heart failure) (HCC) - ICD9: 428.32, 428.0, ICD10: I50.32 Controlled. - COMP METABOLIC PANEL 3. Abdominal aortic aneurysm (AAA) without rupture (HCC) - ICD9: 441.4, ICD10: I71.4 Await US results. He will see Dr. Perez. 4. BENIGN HYPERTENSION - ICD9: 401.1, ICD10: I10 - suboptimal control - Continue current medication(s) - Recheck in 4 weeks, sooner should new symptoms or problems arise. - Reviewed risks of HTN and principles of treatment - Goal of BP <130/80 5. Other hyperlipidemia - ICD9: 272.4, ICD10: E78.49 - LIPID PANEL BASIC Dallas Reed MD [facility]* Diagnosis Stage 3a chronic kidney disease (HCC)- Primary Chronic diastolic CHF (congestive heart failure) (HCC) Chronic diastolic heart failure Abdominal aortic aneurysm (AAA) without rupture (HCC) BENIGN HYPERTENSION Essential hypertension, benign Other hyperlipidemia documented [facility] encounter [facility] History of Present illness Narrative* Denver Elizalde RN - 12/08/2021 5:06 PM EDT [facility] Engagement Provider Action/FYI: Spk with Pt who reports no CHF / CKD symptoms or needs. Contact Made with Patient: Yes Patient identified by name and . Discussed care with patient Blaise turner name is Fide Goff RN your [employer] from [facility] I am reaching out today because I noticed it has been a few weeks since I have seen any responses from you on your questionnaire. I wanted to check on you and make sure you are doing well, and to remind you that your Dallas Reed MD recommended this program for you so that you can stay better connected to your health. I will be monitoring your responses on the questionnaire to make sure we are not seeing any changes in your health that your Primary Care Physician needs to know about, or looking for improvements and keeping Dallas Reed MD informed about it all. You and I will check in together anytime a problem arises, and determine a solution. I am here to help you stay healthy, and stay connected to your doctor's office. How can I help you in this program? The patient informs that he forgot. Please take some time today to answer the questionnaire. I am looking forward to receiving your answers. If I do not receive your answers in the next 2 business days I will check back in. ---END CALL Fide Goff RN December 08, 2021 5:06 PM [facility] History of Past illness Narrative* Problem Noted Date Resolved Date DDD (degenerative disc disease), lumbar 08/26/20 17 03/15/2018 Lumbar radiculopathy 08/26/2017 03/15/2018 Recurrent ventral incisional hernia 07/01/2015 08/26/2017 Unilateral inguinal hernia without obstruction o r gangrene 07/01/2015 08/26/2017 Well adult exam 01/09/2015 03/15/2018 Overview: last done 01/09/2015 Aneurysm of abdominal aorta 01/11/201212/20 documented as of this encounter (statuses as of 12/08/2021) [facility] illness Narrative* Problem Noted Date Resolved Date DDD (degenerative disc disease), lumbar 08/26/20 17 03/15/2018 Lumbar radiculopathy 08/26/2017 03/15/2018 Recurrent ventral incisional hernia 07/01/2015 08/26/2017 Unilateral inguinal hernia without obstruction o r gangrene 07/01/2015 08/26/2017 Well adult exam 01/09/2015 03/15/2018 Overview: last done 01/09/2015 Aneurysm of abdominal aorta 01/11/201212/20 documented as of this encounter (statuses as of 01/13/2022) [facility] Narrative* Problem Noted Date Resolved Date DDD (degenerative disc disease), lumbar 08/26/20 17 03/15/2018 Lumbar radiculopathy 08/26/2017 03/15/2018 Recurrent ventral incisional hernia 07/01/2015 08/26/2017 Unilateral inguinal hernia without obstruction o r gangrene 07/01/2015 08/26/2017 Well adult exam 01/09/2015 03/15/2018 Overview: last done 01/09/2015 Aneurysm of abdominal aorta 01/11/201212/20 documented as of this encounter (statuses as of 02/06/2022) [facility] Narrative* Problem Noted Date Resolved Date DDD (degenerative disc disease), lumbar 08/26/20 17 03/15/2018 Lumbar radiculopathy 08/26/2017 03/15/2018 Recurrent ventral incisional hernia 07/01/2015 08/26/2017 Unilateral inguinal hernia without obstruction o r gangrene 07/01/2015 08/26/2017 Well adult exam 01/09/2015 03/15/2018 Overview: last done 01/09/2015 Aneurysm of abdominal aorta 01/11/201212/20 documented as of this encounter (statuses as of 02/09/2022) [facility] Narrative* Problem Noted Date Resolved Date DDD (degenerative disc disease), lumbar 08/26/20 17 03/15/2018 Lumbar radiculopathy 08/26/2017 03/15/2018 Recurrent ventral incisional hernia 07/01/2015 08/26/2017 Unilateral inguinal hernia without obstruction o r gangrene 07/01/2015 08/26/2017 Well adult exam 01/09/2015 03/15/2018 Overview: last done 01/09/2015 Aneurysm of abdominal aorta 01/11/201212/20 documented as of this encounter (statuses as of 02/10/2022) [facility] Narrative* Problem Noted Date Resolved Date DDD (degenerative disc disease), lumbar 08/26/20 17 03/15/2018 Lumbar radiculopathy 08/26/2017 03/15/2018 Recurrent ventral incisional hernia 07/01/2015 08/26/2017 Unilateral inguinal hernia without obstruction o r gangrene 07/01/2015 08/26/2017 Well adult exam 01/09/2015 03/15/2018 Overview: last done 01/09/2015 Aneurysm of abdominal aorta 01/11/201212/20 documented as of this encounter (statuses as of 02/17/2022) [facility] Narrative* Problem Noted Date Resolved Date DDD (degenerative disc disease), lumbar 08/26/20 17 03/15/2018 Lumbar radiculopathy 08/26/2017 03/15/2018 Recurrent ventral incisional hernia 07/01/2015 08/26/2017 Unilateral inguinal hernia without obstruction o r gangrene 07/01/2015 08/26/2017 Well adult exam 01/09/2015 03/15/2018 Overview: last done 01/09/2015 Aneurysm of abdominal aorta 01/11/201212/20 documented as of this encounter (statuses as of 02/18/2022) [facility] Narrative* Problem Noted Date Resolved Date DDD (degenerative disc disease), lumbar 08/26/20 17 03/15/2018 Lumbar radiculopathy 08/26/2017 03/15/2018 Recurrent ventral incisional hernia 07/01/2015 08/26/2017 Unilateral inguinal hernia without obstruction o r gangrene 07/01/2015 08/26/2017 Well adult exam 01/09/2015 03/15/2018 Overview: last done 01/09/2015 Aneurysm of abdominal aorta 01/11/201212/20 documented as of this encounter (statuses as of 03/13/2022) [facility] Narrative* Problem Noted Date Resolved Date DDD (degenerative disc disease), lumbar 08/26/20 17 03/15/2018 Lumbar radiculopathy 08/26/2017 03/15/2018 Recurrent ventral incisional hernia 07/01/2015 08/26/2017 Unilateral inguinal hernia without obstruction o r gangrene 07/01/2015 08/26/2017 Well adult exam 01/09/2015 03/15/2018 Overview: last done 01/09/2015 Aneurysm of abdominal aorta 01/11/201212/20 documented as of this encounter (statuses as of 05/26/2022) [facility] Narrative* Problem Noted Date Resolved Date DDD (degenerative disc disease), lumbar 08/26/20 17 03/15/2018 Lumbar radiculopathy 08/26/2017 03/15/2018 Recurrent ventral incisional hernia 07/01/2015 08/26/2017 Unilateral inguinal hernia without obstruction o r gangrene 07/01/2015 08/26/2017 Well adult exam 01/09/2015 03/15/2018 Overview: last done 01/09/2015 Aneurysm of abdominal aorta 01/11/201212/20 documented as of this encounter (statuses as of 07/03/2022) [facility] Narrative* Problem Noted Date Resolved Date DDD (degenerative disc disease), lumbar 08/26/20 17 03/15/2018 Lumbar radiculopathy 08/26/2017 03/15/2018 Recurrent ventral incisional hernia 07/01/2015 08/26/2017 Unilateral inguinal hernia without obstruction o r gangrene 07/01/2015 08/26/2017 Well adult exam 01/09/2015 03/15/2018 Overview: last done 01/09/2015 Aneurysm of abdominal aorta 01/11/201212/20 documented as of this encounter (statuses as of 12/31/2022) [facility] Narrative* Problem Noted Date Resolved Date DDD (degenerative disc disease), lumbar 08/26/20 17 03/15/2018 Lumbar radiculopathy 08/26/2017 03/15/2018 Recurrent ventral incisional hernia 07/01/2015 08/26/2017 Unilateral inguinal hernia without obstruction o r gangrene 07/01/2015 08/26/2017 Well adult exam 01/09/2015 03/15/2018 Overview: last done 01/09/2015 Aneurysm of abdominal aorta 01/11/201212/20 documented as of this encounter (statuses as of 01/08/2023) [facility] Narrative* Problem Noted Date Resolved Date DDD (degenerative disc disease), lumbar 08/26/20 17 03/15/2018 Lumbar radiculopathy 08/26/2017 03/15/2018 Recurrent ventral incisional hernia 07/01/2015 08/26/2017 Unilateral inguinal hernia without obstruction o r gangrene 07/01/2015 08/26/2017 Well adult exam 01/09/2015 03/15/2018 Overview: last done 01/09/2015 Aneurysm of abdominal aorta 01/11/201212/20 documented as of this encounter (statuses as of 01/13/2023) [facility] Narrative* Problem Noted Date Resolved Date DDD (degenerative disc disease), lumbar 08/26/20 17 03/15/2018 Lumbar radiculopathy 08/26/2017 03/15/2018 Recurrent ventral incisional hernia 07/01/2015 08/26/2017 Unilateral inguinal hernia without obstruction o r gangrene 07/01/2015 08/26/2017 Well adult exam 01/09/2015 03/15/2018 Overview: last done 01/09/2015 Aneurysm of abdominal aorta 01/11/201212/20 documented as of this encounter (statuses as of 01/19/2023) [facility] Narrative* Problem Noted Date Resolved Date DDD (degenerative disc disease), lumbar 08/26/20 17 03/15/2018 Lumbar radiculopathy 08/26/2017 03/15/2018 Recurrent ventral incisional hernia 07/01/2015 08/26/2017 Unilateral inguinal hernia without obstruction o r gangrene 07/01/2015 08/26/2017 Well adult exam 01/09/2015 03/15/2018 Overview: last done 01/09/2015 Aneurysm of abdominal aorta 01/11/201212/20 documented as of this encounter (statuses as of 01/20/2023) [facility] Narrative* Problem Noted Date Resolved Date DDD (degenerative disc disease), lumbar 08/26/20 17 03/15/2018 Lumbar radiculopathy 08/26/2017 03/15/2018 Recurrent ventral incisional hernia 07/01/2015 08/26/2017 Unilateral inguinal hernia without obstruction o r gangrene 07/01/2015 08/26/2017 Well adult exam 01/09/2015 03/15/2018 Overview: last done 01/09/2015 Aneurysm of abdominal aorta 01/11/201212/20 documented as of this encounter (statuses as of 02/01/2023) [facility] Narrative* Problem Noted Date Resolved Date DDD (degenerative disc disease), lumbar 08/26/20 17 03/15/2018 Lumbar radiculopathy 08/26/2017 03/15/2018 Recurrent ventral incisional hernia 07/01/2015 08/26/2017 Unilateral inguinal hernia without obstruction o r gangrene 07/01/2015 08/26/2017 Well adult exam 01/09/2015 03/15/2018 Overview: last done 01/09/2015 Aneurysm of abdominal aorta 01/11/201212/20 documented as of this encounter (statuses as of 03/04/2023) [facility]arrative* Problem Noted Date Diagnosed Date Resolved Date DDD (degenerative disc disease), lumbar 08/26/2017 03/15/2018 Lumbar radiculopathy 08/26/2017 018 Recurrent ventral incisional hernia 07/01/2015 08/26/2017 Unilateral inguinal hernia w ithout obstruction or gangrene 07/01/2015 08/26/2017 Well adult exam 01/09/2015 03/15/2018 Overview: last done 01/09/2015 Aneurysm of abdominal aorta 01/11/2012 01/12/2013 documented as of this encounter (statuses as of 04/16/2023) [facility]* Problem Noted Date Diagnosed Date Resolved Date DDD (degenerative disc disease), lumbar 08/26/2017 03/15/2018 Lumbar radiculopathy 08/26/2017 018 Recurrent ventral incisional hernia 07/01/2015 08/26/2017 Unilateral inguinal hernia w ithout obstruction or gangrene 07/01/2015 08/26/2017 Well adult exam 01/09/2015 03/15/2018 Overview: last done 01/09/2015 Aneurysm of abdominal aorta 01/11/2012 01/12/2013 documented as of this encounter (statuses as of 05/21/2023) [facility]* Problem Noted Date Diagnosed Date Resolved Date DDD (degenerative disc disease), lumbar 08/26/2017 03/15/2018 Lumbar radiculopathy 08/26/2017 018 Recurrent ventral incisional hernia 07/01/2015 08/26/2017 Unilateral inguinal hernia w ithout obstruction or gangrene 07/01/2015 08/26/2017 Well adult exam 01/09/2015 03/15/2018 Overview: last done 01/09/2015 Aneurysm of abdominal aorta 01/11/2012 01/12/2013 documented as of this encounter (statuses as of 06/26/2023) [facility]* Problem Noted Date Diagnosed Date Resolved Date DDD (degenerative disc disease), lumbar 08/26/2017 03/15/2018 Lumbar radiculopathy 08/26/2017 018 Recurrent ventral incisional hernia 07/01/2015 08/26/2017 Unilateral inguinal hernia w ithout obstruction or gangrene 07/01/2015 08/26/2017 Well adult exam 01/09/2015 03/15/2018 Overview: last done 01/09/2015 Aneurysm of abdominal aorta 01/11/2012 01/12/2013 documented as of this encounter (statuses as of 08/10/2023) [facility]arr[facility]* Problem Noted Date Diagnosed Date Resolved Date DDD (degenerative disc disease), lumbar 08/26/2017 03/15/2018 Lumbar radiculopathy 08/26/2017 018 Recurrent ventral incisional hernia 07/01/2015 08/26/2017 Unilateral inguinal hernia w ithout obstruction or gangrene 07/01/2015 08/26/2017 Well adult exam 01/09/2015 03/15/2018 Overview: last done 01/09/2015 Aneurysm of abdominal aorta 01/11/2012 01/12/2013 documented as of this encounter (statuses as of 12/01/2023) [facility]* Problem Noted Date Diagnosed Date Resolved Date DDD (degenerative disc disease), lumbar 08/26/2017 03/15/2018 Lumbar radiculopathy 08/26/2017 018 Recurrent ventral incisional hernia 07/01/2015 08/26/2017 Unilateral inguinal hernia w ithout obstruction or gangrene 07/01/2015 08/26/2017 Well adult exam 01/09/2015 03/15/2018 Overview: last done 01/09/2015 Aneurysm of abdominal aorta 01/11/2012 01/12/2013 documented as of this encounter (statuses as of 12/31/2023) [facility]* Problem Noted Date Diagnosed Date Resolved Date DDD (degenerative disc disease), lumbar 08/26/2017 03/15/2018 Lumbar radiculopathy 08/26/2017 018 Recurrent ventral incisional hernia 07/01/2015 08/26/2017 Unilateral inguinal hernia w ithout obstruction or gangrene 07/01/2015 08/26/2017 Well adult exam 01/09/2015 03/15/2018 Overview: last done 01/09/2015 Aneurysm of abdominal aorta 01/11/2012 01/12/2013 documented as of this encounter (statuses as of 01/05/2024) [facility] [place] [facility] Diagnosis Onset Date Resolution Status 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 Abdominal aortic 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 Essential hypertension chron ic Hyperlipidemia [facility] Work Phone: Evaluation note* Diagnosis BENIGN HYPERTENSION- Primary Essential hypertension, benign [facility] [place] [facility]* Diagnosis Cough- Primary Acute upper respiratory infection, unspecified documented in this encounter [facility] note* Diagnosis Other hyperlipidemia documented in this encounter [facility] note* Diagnosis BENIGN HYPERTENSION Essential hypertension, benign Chronic diastolic CHF (congestive heart failure) (HCC) Chronic diastolic heart failure documented in this encounter [facility] note* Diagnosis Loose stools- Primary Abnormal feces documented in this encounter [facility] note* Diagnosis Diarrhea, unspecified type- Primary Chronic diastolic CHF (congestive heart failure) (HCC) Chronic diastolic heart failure Abdominal aortic aneurysm (AAA) without rupture, unspecified part (HCC) documented in this encounter [facility] note* Diagnosis Diarrhea, unspecified type documented in this encounter [facility] noteNo assessment information availableWLima [facility] Work Phone: Evaluation note* Diagnosis Acute maxillary sinusitis, recurrence not specified- Primary Acute otitis media, right Unspecified otitis media documented in this encounter [facility] note* Diagnosis Primary hypertension- Primary Unspecified essential hypertension Abdominal aortic aneurysm (AAA) without rupture, unspecified part (HCC) documented in this encounter [facility] note* Diagnosis Onset Date Resolution Status Abdominal aortic 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 Chronic renal failure, stage 3 (moderate) chronic Aneurysm, 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 Chronic renal failure, stage 3 (moderate) chronic Abdominal aortic 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 [facility] Work Phone: Evaluation note* Diagnosis Primary hypertension- Primary Unspecified essential hypertension S/P AAA repair Other postprocedural status documented in this encounter [facility] note* Diagnosis Onset Date Resolution Status Abdominal aortic 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 Chronic renal failure, stage 3 (moderate) chronic Aneurysm, 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 Chronic renal failure, stage 3 (moderate) chronic Abdominal aortic 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 Aneurysm, 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 [facility] Work Phone: Evaluation note* Diagnosis Stage 3 chronic kidney disease, unspecified whether stage 3a or 3b CKD (HCC)- Primary documented in this encounter [facility] note* Diagnosis BENIGN HYPERTENSION Essential hypertension, benign Chronic diastolic CHF (congestive heart failure) (HCC) Chronic diastolic heart failure documented in this encounter [facility] note* Diagnosis Onset Date Resolution Status Aneurysm, 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 Chronic renal failure, stage 3 (moderate) chronic [facility] Work Phone: Evaluation note* Diagnosis Medicare annual wellness visit, subsequent- Primary Routine general medical examination at a health care facility [facility] Encounter for other preprocedural examination- Primary [facility] [place] [facility]* Diagnosis Primary hypertension- Primary Unspecified essential hypertension Allergic rhinitis, unspecified seasonality, unspecified trigger Chronic diastolic CHF (congestive heart failure) (HCC) Chronic diastolic heart failure Stage 3a chronic kidney disease (HCC) Other hyperlipidemia Abdominal aortic aneurysm (AAA) without rupture, unspecified part (HCC) [facility] [place] [facility]* Diagnosis 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)- Primary S/P carotid endarterectomy right Other postprocedural status Mixed hyperlipidemia BPH with urinary obstruction Hypertrophy of prostate with urinary obstruction and other lower urinary tract symptoms (LUTS) Stage 3a chronic kidney disease (HCC) Chronic diastolic CHF (congestive heart failure) (HCC) Chronic diastolic heart failure [facility] Diagnosis Acute pain of both shoulders- Primary [facility] pain of both [facility] BENIGN HYPERTENSION Essential hypertension, benign [facility] Chronic right shoulder pain- Primary Pain in joint, shoulder region [facility] Primary hypertension Unspecified essential hypertension [facility] Diagnosis Dizziness- Primary Dizziness and giddiness Chronic diastolic CHF (congestive heart failure) (HCC) Chronic diastolic heart failure BENIGN HYPERTENSION Essential hypertension, benign Weight loss Loss of weight Fatigue, unspecified type History of anemia Personal history of diseases of blood and blood-forming organs [facility] Acute pain of both shoulders [facility] [place] [facility] Diagnosis TIA (transient ischemic attack)- Primary Unspecified transient cerebral ischemia S/P carotid endarterectomy right Other postprocedural status Chronic diastolic CHF (congestive heart failure) (HCC) Chronic diastolic heart failure Stage 3b chronic kidney disease (HCC) Thrombocytopenia (HCC) Thrombocytopenia, unspecified Abnormal TSH Other abnormal clinical finding Mixed hyperlipidemia [facility] [place] [facility]* Diagnosis Diarrhea, unspecified type [facility] [place] [facility]* Diagnosis Procedure not carried out- Primary Procedure not carried out for other reasons documented [facility] [place] [facility]* Diagnosis Spigelian hernia- Primary Other ventral hernia without mention of obstruction or gangrene 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 Other postprocedural status Pancreatic cyst Cyst and pseudocyst of pancreas Splenomegaly [facility] [place] [facility]* Diagnosis Medicare annual wellness visit, subsequent- Primary Routine general medical examination at a [facility] facility Hypothyroidism, unspecified type TIA (transient ischemic attack) Unspecified transient cerebral ischemia Mixed hyperlipidemia Primary hypertension Unspecified essential hypertension Screening for depression Encounter for screening examination for other mental health and behavioral disorders Spigelian hernia Other ventral hernia without mention of obstruction or gangrene Stage 3b chronic kidney disease (HCC) [facility] [place] [facility]* Diagnosis Subclinical hypothyroidism- Primary Other specified acquired hypothyroidism documented [facility] [place] [facility]* Diagnosis Primary hypertension Unspecified essential hypertension [facility] [place] [facility]* Diagnosis Abrasion of head, initial encounter- Primary documented [facility] [place] [facility]* Diagnosis Contusion of scalp, subsequent encounter- Primary Fall, subsequent encounter Proximal leg weakness Other musculoskeletal symptoms referable to limbs [facility] [place] [facility]* Diagnosis Fall, subsequent encounter- Primary Contusion of scalp, subsequent encounter Proximal leg weakness Other musculoskeletal symptoms referable to limbs [facility] [place] [facility]* Diagnosis Fall, subsequent encounter- Primary Proximal leg weakness Other musculoskeletal symptoms referable to limbs Contusion of scalp, subsequent encounter [facility] Diagnosis Procedure not carried out- Primary Procedure not carried out for other reasons documented [facility] [place] [facility]* Diagnosis Left lower quadrant abdominal pain- Primary documented [facility] [place] [facility]* Diagnosis Left lower quadrant abdominal pain documented [facility] [place] [facility]* Diagnosis Essential hypertension- Primary Unspecified essential hypertension Chronic diastolic CHF (congestive heart failure) (HCC) Chronic diastolic heart failure [facility] [place] [facility]* Diagnosis Fall, subsequent encounter- Primary Proximal leg weakness Other musculoskeletal symptoms referable to limbs Contusion of scalp, subsequent encounter documented [facility] [place] [facility]* Diagnosis Fall, subsequent encounter- Primary Proximal leg weakness Other musculoskeletal symptoms referable to limbs Contusion of scalp, subsequent encounter documented [facility] this [facility] [place] [facility]* Diagnosis 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 Chronic diastolic CHF (congestive heart failure) (HCC) Chronic diastolic heart failure Stage 3b chronic kidney disease (HCC) Essential hypertension Unspecified essential hypertension documented [facility] [place] [facility]* Diagnosis Essential hypertension Unspecified essential hypertension documented [facility] [place] [facility]* Diagnosis Proximal leg weakness- Primary Other musculoskeletal symptoms referable to limbs documented [facility] [place] [facility]* Diagnosis Proximal leg weakness- Primary Other musculoskeletal symptoms referable to limbs Fall, subsequent encounter Contusion of scalp, subsequent encounter documented [facility] this [facility] [place] [facility]* Diagnosis Proximal leg weakness- Primary Other musculoskeletal symptoms referable to limbs Fall, subsequent encounter Contusion of scalp, subsequent encounter [facility] Diagnosis Proximal leg weakness- Primary Other musculoskeletal symptoms referable to limbs Fall, subsequent encounter Contusion of scalp, subsequent encounter [facility] Diagnosis BENIGN HYPERTENSION Essential hypertension, benign documented [facility] this [facility] [place] [facility]* Diagnosis Chronic diastolic CHF (congestive heart failure) (HCC) Chronic diastolic heart failure documented [facility] [place] [facility]* Diagnosis Heart failure, unspecified HF chronicity, unspecified heart failure type (HCC)- Primary documented [facility] [place] [facility]* Diagnosis 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 [facility] [place] [facility] Diagnosis Subclinical hypothyroidism- Primary Other specified acquired hypothyroidism Fatigue, unspecified type Type II endoleak of aortic graft Anemia of chronic disease Anemia of other chronic disease Stage 3b chronic kidney disease (HCC) Essential hypertension Unspecified essential hypertension Chronic diastolic CHF (congestive heart failure) (HCC) Chronic diastolic heart failure documented [facility] [place] [facility]* Diagnosis Encounter for preprocedural laboratory examination- Primary Type II endoleak of aortic graft [facility] Diagnosis 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 [facility] [place] [facility]* Diagnosis Essential hypertension Unspecified essential hypertension documented [facility] [place] [facility]* Diagnosis Fatigue, unspecified type- Primary Essential hypertension Unspecified essential hypertension Chronic diastolic CHF (congestive heart failure) (HCC) Chronic diastolic heart failure Anemia, unspecified type Subclinical hypothyroidism Other specified acquired hypothyroidism documented in this encounter [facility] Discharge instructions Additional Instructions 1. Take antibiotics until gone. 2 if you develop a fever, your pain becomes worse and spite of the antibiotics or unable to eat or drink anything return to the [facility] Work Phone: Reason for referral (narrative)* Outpatient Procedure (Routine) - Authorized Specialty Diagnoses / Procedures Referred By Contac t Referred To Contact [facility] Diagnoses Diarrhea, unspecified type Procedures COLONOSCOPY DIAGNOSTIC COLONOSCOPY FLX DX W/COLLJ SPEC WHEN PFRMD Lisa Rodriguez MD [address] [place] [address] [facility] [place] [address] [place] [address] Referral ID Status Reason Start Date Expiration Date Visits Requested Visits Authorized [id number] Authorized Auto-Generat ed Referral 01/07/2023 01/08/2024 1 1 [facility] for referral (narrative)* Diagnostic Procedure Only (Urgent) - Closed Specialty Diagnoses / Procedures Referred By Contac t Referred To Contact [facility] IMAGING Diagnoses Acute pain of both shoulders Procedures XR SHOULDER GENERAL 3V OR MORE AP/TRUE AP/OTHER LEFT RADEX SHOULDER COMPLETE MINIMUM 2 VIEWS Ayla Carrasquillo PA-C [address] [place] [address] [place] [address] Referral ID Status Reason Start Date Expiration Date V isits Requested Visits Authorized [id number] Closed Auto-Generate d Referral 02/09/2024 03/10/2025 1 1 * Diagnostic Procedure Only (Urgent) - Closed Specialty Diagnoses / Procedures Referred By Contac t Referred To Contact XR IMAGING Diagnoses Acute pain of both shoulders Procedures XR SHOULDER GENERAL 3V OR MORE AP/TRUE AP/OTHER RIGHT RADEX SHOULDER COMPLETE MINIMUM 2 VIEWS Ayla Carrasquillo PA-C [address] [place] [address] [place] [address] Referral ID Status Reason Start Date Expiration Date V isits Requested Visits Authorized [id number] Closed Auto-Generate d Referral 02/09/2024 03/10/2025 1 1 [facility] for referral (narrative)* Outpatient Procedure (Routine) - Closed Specialty Diagnoses / Procedures Referred By Contac t Referred To Contact [facility] Diagnoses Diarrhea, unspecified type Procedures COLONOSCOPY DIAGNOSTIC COLONOSCOPY FLX DX W/COLLJ SPEC WHEN Lisa Pryor MD [address] [place] [address] [facility] [place] [address] [place] [address] Referral ID Status Reason Start Date Expiration Date V isits Requested Visits Authorized [id number] Closed Auto-Generate d Referral 01/07/2023 01/08/2024 1 1 [facility] for referral (narrative)No reason for referral [facility]: Reason for visit Narrative* Diagnostic Procedure Only (Urgent) - Closed Specialty Diagnoses / Procedures Referred By Contac t Referred To Contact XR IMAGING Diagnoses Acute pain of both shoulders Procedures XR SHOULDER GENERAL 3V OR MORE AP/TRUE AP/OTHER LEFT RADEX SHOULDER COMPLETE MINIMUM 2 VIEWS Ayla Carrasquillo PA-C [address] [place] [address] [place] [address] Referral ID Status Reason Start Date Expiration Date V isits Requested Visits Authorized [id number] Closed Auto-Generate d Referral 02/09/2024 03/10/2025 1 1 [facility] for visit Narrative* Outpatient Procedure (Routine) - Closed Specialty Diagnoses / Procedures Referred By Contac t Referred To Contact [facility] Diagnoses Diarrhea, unspecified type Procedures COLONOSCOPY DIAGNOSTIC COLONOSCOPY FLX DX W/COLLJ SPEC WHEN PFRMD Lisa Rodriguez MD [address] [place] [address] [facility] [place] [address] [place] [address] Referral ID Status Reason Start Date Expiration Date V isits Requested Visits Authorized [id number] Closed Auto-Generate d Referral 01/07/2023 01/08/2024 1 1 [facility] for visit Narrative* MRI/CT (Routine) - Closed Specialty Diagnoses / Procedures Referred By Contac t Referred To Contact CT IMAGING Diagnoses LLQ abdominal pain Left lower quadrant abdominal pain Procedures CT ABD/PEL W IVCON CT ABD & PELVIS W/CONTRAST Darya Borden, TECHNICAL TRAINING SPECIALIST.RIDDLER OPERATOR [address] [place] [address] Phone: tel: fax: [place] [address] Referral ID Status Reason Start Date Expiration Date V isits Requested Visits Authorized [id number] Closed Auto-Generate d Referral 11/27/2024 12/27/2025 1 1 [facility] for visit Narrative* MRI/CT (Routine) - Closed Specialty Diagnoses / Procedures Referred By Contac t Referred To Contact CT IMAGING Diagnoses LLQ abdominal pain Left lower quadrant abdominal pain Procedures CT ABD/PEL W IVCON CT ABD & PELVIS W/CONTRAST Darya Borden, TECHNICAL TRAINING SPECIALIST.RIDDLER OPERATOR [address] [place] [address] Phone: tel: fax: [place] [address] Referral ID Status Reason Start Date Expiration Date V isits Requested Visits Authorized [id number] Closed Auto-Generate d Referral 11/27/2024 12/27/2025 1 1 [facility] for visit Narrative* Imaging (Routine) - Closed Specialty Diagnoses / Procedures Referred By Contac t Referred To Contact Radiology Diagnoses Type II endoleak of aortic graft Procedures IR Ana Arthur MD [address] [place] [address] Phone: tel: fax: Referral ID Status Reason Start Date Expiration Date Visits Re quested Visits Authorized [id number] Closed 03/01/2025 03/01/2026 1 1 [facility] Health Summary Purpose Family History No Family History Records Found Relationship Condition Age at Onset Recorded Date/T katlyn father Malignant neoplasm of lung Unknown Malignant neoplasm of liver Unknown mother Malignant neoplasm of oral cavity Unknown Advance Directives No Advanced Directives Records Found Date Activated Date Inactivated Comments 11/28/2024 9:51 PM 12/01/2024 8:49 PM Question Answer Comments Full Code Order Discussed With: Patient Documents on File Type Date Recorded Patient Circus Hand Expl anation Advance Directives and Living Will Power of Tier Lift Truck Operator Documents on File Type Date Recorded Patient Circus Hand Expl anation Advance Directive(s) Advance Directive(s) 05/21/2020 7:47 AM Advance Directive(s) 05/09/2020 2:53 PM Advance Directive Response Recorded Date/ Time Advance Directives Yes October 11, 2016 3:05pm Living Will Yes January 20, 2021 8: 52pm Power of Tier Lift Truck Operator Yes January 20, 2021 8:52pm Advance Directive Response Recorded Date/ Time Name of Medical Power of Tier Lift Truck Operator Libra April 07, 2023 10:14am Advance Directives Yes October 11, 2016 3:05pm Living Will Yes April 07, 2023 10:14am Power of Tier Lift Truck Operator Yes April 07 10:14am Advance Directive Response Recorded Date/ Time Advance Directives Yes October 11, 2016 2:05pm Living Will Yes April 07, 2023 9:14am Power of Tier Lift Truck Operator Yes April 07 9:14am Advance Directive Response Recorded Date/ Time Advance Directives Yes October 11, 2016 3:05pm Living Will Yes April 07, 2023 10:14am Power of Tier Lift Truck Operator Yes April 07 10:14am Date Activated Date Inactivated Comments 11/28/2024 9:51 PM Date Activated Date Inactivated Comments 11/28/2024 9:51 PM Question Answer Comments Full Code Order Discussed With: Patient Advance Directive Response Recorded Date/ Time Living Will Yes August 11 1:26pm Power of Tier Lift Truck Operator Yes August 11, 2024 1:26pm Name of Medical Power of Tier Lift Truck Operator August 11, 2024 1:26pm Living Will Yes November 28, 2024 5:58pm Power of Tier Lift Truck Operator Yes November 28 5:58pm Name of Medical Power of Tier Lift Truck Operator Libra Camejo November 28, 2024 5:58pm Advance Directives Yes October 11, 2016 3:05pm Advance Directive Response Recorded Date/ Time Do you have a Healthcare Power of Tier Lift Truck Operator? No January 12, 2025 10:29am Living Will Yes November 28, 2024 5:58pm Do you have a Healthcare Power of Tier Lift Truck Operator? Yes November 28, 2024 5:58pm Name of Medical Power of Tier Lift Truck Operator Libra Camejo November 28, 2024 5:58pm Advance Directives Yes October 11, 2016 3:05pm Advance Directive Response Recorded Date/ Time Do you have a Healthcare Power of Tier Lift Truck Operator? No January 12, 2025 10:29am Advance Directives on File Yes January 192024 9:53am Living Will Yes February 14, 2025 9 :53am Do you have a Healthcare Power of Tier Lift Truck Operator? Yes February 14, 2025 9:53am Name of Medical Power of Tier Lift Truck Operator Libra (Spouse) February 14, 2025 9:53am Advance Directives Yes February 14 9:53am Living Will Yes November 28, 2024 5:58pm Do you have a Healthcare Power of Tier Lift Truck Operator? Yes November 28, 2024 5:58pm Name of Medical Power of Tier Lift Truck Operator Libra Camejo November 28, 2024 5:58pm Advance Directive Response Recorded Date/ Time Do you have a Healthcare Power of Tier Lift Truck Operator? No January 12, 2025 10:29am Advance Directives on File Yes January 192024 9:53am Living Will Yes February 14, 2025 9 :53am Do you have a Healthcare Power of Tier Lift Truck Operator? Yes February 14, 2025 9:53am Name of Medical Power of Tier Lift Truck Operator Libra (Spouse) February 14, 2025 9:53am Advance Directives Yes February 14 9:53am Advance Directive Response Recorded Date/ Time Advance Directives on File Yes January 192024 9:53am Living Will Yes February 14, 2025 9 :53am Do you have a Healthcare Power of Tier Lift Truck Operator? Yes February 14, 2025 9:53am Name of Medical Power of Tier Lift Truck Operator Libra (Spouse) February 14, 2025 9:53am Advance Directives Yes February 14 9:53am Discharge Instructions * Instructions* Annette Domingo, CHRISTIANO - 07/19/2019 During your procedure, your doctor placed a thin needle through your skin and into your rt. Psoas fluid collection. This may have been done to find what is causing a lump and pain in your rt. Hip area. The site may be sore and tender for 1 to 2 days. This care sheet gives you a general idea about how long it will take for you to recover. But each person recovers at a different pace. Follow the steps below to feel better as quickly as possible. How can you care for yourself at home? Activity Rest when you feel tired. Getting enough sleep will help you recover. Medicines Your doctor will tell you if and when you can restart your medicines. He or she will also give you instructions about taking any new medicines. If you take blood thinners, such as warfarin (Coumadin), clopidogrel (Plavix), or aspirin, be sure to talk to your doctor. He or she will tell you if and when to start taking those medicines again. Make sure that you understand exactly what your doctor wants you to do. Take pain medicines exactly as directed. ? If the doctor gave you a prescription medicine for pain, take it as prescribed. ? If you are not taking a prescription pain medicine, ask your doctor if you can take an jkbq-pdu-hwudyih medicine. If you think your pain medicine is making you sick to your stomach: ? Take your medicine after meals (unless your doctor has told you not to). ? Ask your doctor for a different pain medicine. Incision care Keep the site covered and dry for 48 hours. A small amount of bleeding from the site can be expected. Ask your doctor how much drainage to expect. Follow-up care is a beasley part of your treatment and safety. Be sure to make and go to all appointments, and call your doctor if you are having problems. It's also a good idea to know your test resultsand keep a list of the medicines you take. When should you call for help? Call 911 anytime you think you may need emergency care. For example, call if: You have severe trouble breathing. Call your doctor now or seek immediate medical care if: You have a lot of bleeding through the bandage. You have a hard time swallowing. You have new or worsening pain. You have symptoms of infection, such as: ? Increased pain, swelling, warmth, or redness. ? Red streaks leading from the site. ? Pus draining from the site. ? A fever. Watch closely for any changes in your health, and be sure to contact your doctor if: You're not getting better as expected. You notice a change in your voice. Where can you learn more? What to Expect at Home. If you do not have an account, please click on the Sign Up Now link. Current as of: July 26, 2018 Content Version: 12. [employer]. Care instructions adapted under license by [employer]. If youhave questions about a medical condition or this instruction, always ask your healthcare professional. [employer] disclaims any warranty or liability for your use of this information. If you have any questions or problems following your test, please call: [phone] (7AM - 4PM) or after 4PM call [phone] and ask for the angiography radiologist filling station laborer documented in this encounter History of Present Illness * Mandi Sanchez RN - 07/19/2019 11:48 AM EDT Patient ambulated, denies dizziness or nausea. Tolerating PO fluids and crackers. Vital signs are stable. Patient has changed and is being discharged home in a wheelchair with valuables. * Mandi Sanchez RN - 07/19/2019 11:05 AM EDT Discharge information given to the patient. Patient and family verbalized understanding of information. All questions were answered before discharge. * Mandi Sanchez RN - 07/19/2019 10:[address] Brent diaz. New orders received for pain medication to be given. Then wait 1 hour before discharge * Mandi Sanchez RN - 07/19/2019 9:21 AM EDT Patient arrived and ID verified. Vital signs stable. Call light in reach. Denies nausea and vomiting. Offered crackers and something to drink. * Annette Domingo RN - 07/19/2019 9:12 AM EDT Patient arrived to CT department from [facility] for a Rt. Hip/ psoas aspiration. Dr. Quevedo in to discuss procedure with patient and informed consent obtained. Patient assisted to CT table . child monitor on. 10 ccs red fluid removed from rt. Hip/ psoas sent to lab Bandaid applied to site. Patient tolerated procedure well. Report called to Lolly Menjivar and patient transferred to bed 40 [facility]. 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 Abdominal aortic 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 Essential hypertension Hyperlipidemia Chief Complaint ABDOMINAL AORTIC ANE URYSM Chief Complaint ABDOMINAL AORTIC ANE URYSM YEARLY CAROTID & AAA AAA F/u CTA and discuss surgery AAA AAA AAA Reason for Visit Abdominal aortic ane urysm without rupture Chronic renal failure, stage 3 (moderate) Aneurysm, common iliac artery Abdominal aortic 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 Chronic renal failure, stage 3 (moderate) Abdominal aortic 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 Chief Complaint ABDOMINAL AORTIC ANE URYSM YEARLY CAROTID & AAA AAA F/u CTA and discuss surgery AAA AAA AAA AAA 7-20 Reason for Visit Abdominal aortic ane urysm without rupture Chronic renal failure, stage 3 (moderate) Aneurysm, common iliac artery Abdominal aortic 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 Chronic renal failure, stage 3 (moderate) Abdominal aortic 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 Aneurysm, common iliac artery Abdominal aortic 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 Chief Complaint YEARLY CAROTID & AAA AAA F/u CTA and discuss surgery AAA AAA AAA AAA AAA 7-20 AAA Reason for Visit Abdominal aortic ane urysm without rupture Chronic renal failure, stage 3 (moderate) Aneurysm, common iliac artery Abdominal aortic 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 Chronic renal failure, stage 3 (moderate) Abdominal aortic 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 Aneurysm, common iliac artery Abdominal aortic 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 Chief Complaint AAA 7-20 AAA Yearly [place] F/U Discuss Imaging SEE ORDER Reason for Visit Aneurysm, common jeffy ac artery Abdominal aortic 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 Type II endoleak of aortic graft Chronic renal failure, stage 3 (moderate) Chief Complaint Abdominal aortic ane urysm, without rupture, unspec Chief Complaint Admit Date Open left spigelian hernia w/mesh Decemb er 2023 12:33pm Open left spigelian hernia w/mesh Decemb er 2023 6:02am Open left spigelian hernia w/mesh Decemb er 2023 8:25am SPIGELIAN HERNIA DOS 08/31 1:12pm abd pain, AAA November 28, 2024 5:5 1pm Reason for Visit Admit Date S/P spigelian hernia repair, follow-up e xam September 15, 2024 1:12pm Chief Complaint Admit Date SPIGELIAN HERNIA DOS 08/31 1:12pm abd pain, AAA November 28, 2024 5:5 1pm Discuss aneurysm, [facility] sent him here Apr l 2024 3:30pm abd pain January 12, 2025 10: 29am Reason for Visit Admit Date S/P spigelian hernia repair, follow-up e xam September 15, 2024 1:12pm Type II endoleak of aortic graft December 252024 3:30pm Chief Complaint Admit Date abd pain, AAA November 28, 2024 5:5 1pm Discuss aneurysm, [facility] sent him here Apr l 2024 3:30pm abd pain January 12, 2025 10: 29am AAA S/P EVAR, TYPE II ENDOLEAK, SURVEILL ANCE January 18, 2025 2:55pm Other postprocedural complications and d isorders o February 14, 2025 9:24am Other postprocedural complications and d isorders o February 14, 2025 11:33am Reason for Visit Admit Date Type II endoleak of aortic graft December 252024 3:30pm Type II endoleak of aortic graft January 9:24am Chief Complaint Admit Date abd pain, AAA November 28, 2024 5:5 1pm Discuss aneurysm, [facility] sent [facility] here Apr l 2024 3:30pm abd pain January 12, 2025 10: 29am AAA S/P EVAR, TYPE II ENDOLEAK, SURVEILL ANCE January 18, 2025 2:55pm Other postprocedural complications and d isorders o February 14, 2025 9:24am Other postprocedural complications and d isorders o February 14, 2025 11:33am Post Aortogram 2-4 WK FU February 27, 2025 2:40pm Chief Complaint Admit Date Discuss aneurysm, [facility] sent him here Apri l 2024 3:30pm abd pain January 12, 2025 10: 29am AAA S/P EVAR, TYPE II ENDOLEAK, SURVEILL ANCE January 18, 2025 2:55pm Other postprocedural complications and d isorders o February 14, 2025 9:24am Other postprocedural complications and d isorders o February 14, 2025 11:33am Post Aortogram 2-4 WK FU February 27, 2025 2:40pm FU from [facility] April 18, 2025 4:16 pm Reason for Visit Admit Date Type II endoleak of aortic graft December 252024 3:30pm Type II endoleak of aortic graft January 9:24am Type II endoleak of aortic graft February 272024 2:40pm Chief Complaint Admit Date abd pain January 12, 2025 10: 29am AAA S/P EVAR, TYPE II ENDOLEAK, SURVEILL ANCE January 18, 2025 2:55pm Other postprocedural complications and d isorders o February 14, 2025 9:24am Other postprocedural complications and d isorders o February 14, 2025 11:33am Post Aortogram 2-4 WK FU February 27, 2025 2:40pm FU from IR [facility] April 18, 2025 4:16 pm AAA, S/P EVAR, COIL OF ENDOLEAK April 202024 1:59pm Reason for Visit Admit Date Type II endoleak of aortic graft January 9:24am Type II endoleak of aortic graft February 272024 2:40pm Abdominal aortic aneurysm without ruptur e April 18, 2025 4:16pm Chief Complaint Admit Date abd pain January 12, 2025 10: 29am AAA S/P EVAR, TYPE II ENDOLEAK, SURVEILL ANCE January 18, 2025 2:55pm Other postprocedural complications and d isorders o February 14, 2025 9:24am Other postprocedural complications and d isorders o February 14, 2025 11:33am Post Aortogram 2-4 WK FU February 27, 2025 2:40pm FU from [facility] April 18, 2025 4:16 pm AAA, S/P EVAR, COIL OF ENDOLEAK April 202024 1:59pm FU VISIT May 10, 2025 8: 04am Reason for Visit Admit Date Type II endoleak of aortic graft January 9:24am Type II endoleak of aortic graft February 272024 2:40pm Abdominal aortic aneurysm without ruptur e April 18, 2025 4:16pm 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 May 10, 2025 8:04am Abdominal aortic aneurysm without ruptur e May 10, 2025 8:04am Essential hypertension May 10, 2025 8:04am 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 May 10, 2025 8:04am Hyperlipidemia May 10, 2025 8: 04am Shortness of breath May 10, 2025 8: 04am Chief Complaint Admit Date AAA S/P EVAR, TYPE II ENDOLEAK, SURVEILL ANCE January 18, 2025 2:55pm Other postprocedural complications and d isorders o February 14, 2025 9:24am Other postprocedural complications and d isorders o February 14, 2025 11:33am Post Aortogram 2-4 WK FU February 27, 2025 2:40pm FU from [facility] April 18, 2025 4:16 pm AAA, S/P EVAR, COIL OF ENDOLEAK April 202024 1:59pm FU VISIT May 10, 2025 8: 04am E ORDERS May 10, 2025 8: 49am Health Concerns Infection Onset Date Last Indicated Resolved Time COVID-19 Rule-Out 02/17/2022 02/17/2022 Infection Onset Date Last Indicated Resolved Time COVID-19 Confirmed 02/17/2022 02/17/2022 Problem Noted Date High Risk Chronic Disease Home Monitorin g Problem 02/03/2023 Problem Noted Date Diagnosed Date High Risk Chronic Disease Home Monitoring Proble m 02/03/2023 Problem Noted Date Diagnosed Date High Risk Chronic Disease Home Monitoring Proble m 02/03/2023 Problem Noted Date Diagnosed Date High Risk Chronic Disease Home Monitoring Proble m 02/03/2023 Active Problems Noted Date Diagnosed Date High Risk Chronic Disease Home Monitoring Proble m 02/03/2023 Active Problems Noted Date Diagnosed Date High Risk Chronic Disease Home Monitoring Proble m 02/03/2023 Active Problems Noted Date Diagnosed Date High Risk Chronic Disease Home Monitoring Proble 02/03/2023 Reason for Referral Specialty Diagnoses / Procedures Referred By Contac t Referred To Contact CT IMAGING Diagnoses Encounter for other preprocedural examination Procedures CTA ABD/PEL WO/W IVCON CT ANGIO ABD&PLVIS CNTRST MTRL W/WO CNTRST IMGES Shaun Kowalski MD [address] [place] [address] Ct [facility] [place] [address] Referral ID Status Reason Start Date Expiration Date Visits Requested Visits Authorized [id number] Authorized Auto-Generat ed Referral 01/05/2024 02/03/2025 1 1 Specialty Diagnoses / Procedures Referred By Contac t Referred To Contact CT IMAGING Diagnoses Encounter for other preprocedural examination Procedures CTA CHEST (NONGATED) WO/W IVCON CT ANGIOGRAPHY CHEST W/CONTRAST/NONCONTRAST Shaun Kowalski MD [address] [place] [address] Ct Imaging [place] [address] Referral ID Status Reason Start Date Expiration Date Visits Requested Visits Authorized [id number] Authorized Auto-Generat ed Referral 01/05/2024 02/03/2025 1 1 Specialty Diagnoses / Procedures Referred By Contac t Referred To Contact Orthopedics Diagnoses Acute pain of both shoulders Procedures CONSULT TO ORTHOPAEDICS OFFICE/OUTPATIENT [facility] 60 MINUTES Ayla Carrasquillo PA-C [address] [place] [address] Referral ID Status Reason Start Date Expiration Date Visits Requested Visits Authorized [id number] Authorized PCP Requested Referral 02/09/2024 02/08/2025 1 1 Specialty Diagnoses / Procedures Referred By Contac t Referred To Contact XR IMAGING Diagnoses Acute pain of both shoulders Procedures XR SHOULDER GENERAL 3V OR MORE AP/TRUE AP/OTHER LEFT RADEX SHOULDER COMPLETE MINIMUM 2 VIEWS Ayla Carrasquillo PA-C [address] [place] [address] [place] [address] Referral ID Status Reason Start Date Expiration Date V isits Requested Visits Authorized [id number] Closed Auto-Generate d Referral 02/09/2024 03/10/2025 1 1 Specialty Diagnoses / Procedures Referred By Contac t Referred To Contact XR IMAGING Diagnoses Acute pain of both shoulders Procedures XR SHOULDER GENERAL 3V OR MORE AP/TRUE AP/OTHER RIGHT RADEX SHOULDER COMPLETE MINIMUM 2 VIEWS Ayla Carrasquillo PA-C [address] [place] [address] [place] [address] Referral ID Status Reason Start Date Expiration Date V isits Requested Visits Authorized [id number] Closed Auto-Generate d Referral 02/09/2024 03/10/2025 1 1 Specialty Diagnoses / Procedures Referred By Contac t Referred To Contact Vascular Surgery Diagnoses 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 Procedures CONSULT TO VASCULAR SURGERY Dallas Reed MD [address] [place] [address] Referral ID Status Reason Start Date Expiration Date Visits Requested Visits Authorized [id number] Ref Not Required PCP Requested Referral 4 07/17/2025 1 1 Specialty Diagnoses / Procedures Referred By Contac t Referred To Contact General Surgery Diagnoses Spigelian hernia Pancreatic cyst Procedures CONSULT TO GENERAL SURGERY Dallas Reed MD [address] [place] [address] Referral ID Status Reason Start Date Expiration Date Visits Requested Visits Authorized [id number] Ref Not Required PCP Requested Referral 07/17/2025 1 1 Additional Source Comments (unrecognized sect ion and content) No Status Records FoundNo Status Records FoundNo Status Records FoundNo Status Records FoundNo Status Records FoundNo Status Records FoundNo Status Records Found INFORMATION SOURCE (unrecogn ized section and content) DATE CREATED AUTHOR 03/10/2018 [facility] DATE CREATED AUTHOR AUTHOR'S ORGANIZ ATION 03/10/2018 [facility] DATE CREATED AUTHOR AUTHOR'S ORGANIZ ATION 06/20/2019 [facility] ([place]) DATE CREATED AUTHOR AUTHOR'S ORGANIZ ATION 07/24/2019 [facility] DATE CREATED AUTHOR AUTHOR'S ORGANIZ ATION 03/22/2025 [facility] DATE CREATED AUTHOR AUTHOR'S ORGANIZ ATION 05/19/2025 [facility] DATE CREATED AUTHOR AUTHOR'S ORGANIZ ATION 05/20/2025 [facility] Source Comments (unrecognize d section and content) In the event this informatio n is protected by the Federal Confidentiality of Alcohol and Drug Abuse Patient Records regulations: The Federal rules restrict any use of the information to criminally investigate or prosecute any alcohol or drug abuse patient.[facility] Health AdministrationIn the event this information is protected by the Federal Confidentiality of Alcohol and Drug Abuse Patient Records regulations: The Federal rules restrict any use of the information to criminally investigate or prosecute any alcohol or drug abuse patient.[facility] AdministrationIn the event this information is protected by the Federal Confidentiality of Alcohol and Drug Abuse Patient Records regulations: The Federal rules restrict any use of the information to criminally investigate or prosecute any alcohol or drug abuse patient.[facility] AdministrationIn the event this information is protected by the Federal Confidentiality of Alcohol and Drug Abuse Patient Records regulations: The Federal rules restrict any use of the information to criminally investigate or prosecute any alcohol or drug abuse patient.[facility] AdministrationIn the event this information is protected by the Federal Confidentiality of Alcohol and Drug Abuse Patient Records regulations: The Federal rules restrict any use of the information to criminally investigate or prosecute any alcohol or drug abuse patient.[facility] AdministrationIn the event this information is protected by the Federal Confidentiality of Alcohol and Drug Abuse Patient Records regulations: The Federal rules restrict any use of the information to criminally investigate or prosecute any alcohol or drug abuse patient.[facility] AdministrationIn the event this information is protected by the Federal Confidentiality of Alcohol and Drug Abuse Patient Records regulations: The Federal rules restrict any use of the information to criminally investigate or prosecute any alcohol or drug abuse patient.[facility] AdministrationIn the event this information is protected by the Federal Confidentiality of Alcohol and Drug Abuse Patient Records regulations: The Federal rules restrict any use of the information to criminally investigate or prosecute any alcohol or drug abuse patient.[facility] AdministrationIn the event this information is protected by the Federal Confidentiality of Alcohol and Drug Abuse Patient Records regulations: The Federal rules restrict any use of the information to criminally investigate or prosecute any alcohol or drug abuse patient.[facility] AdministrationIn the event this information is protected by the Federal Confidentiality of Alcohol and Drug Abuse Patient Records regulations: The Federal rules restrict any use of the information to criminally investigate or prosecute any alcohol or drug abuse patient.[facility] AdministrationIn the event this information is protected by the Federal Confidentiality of Alcohol and Drug Abuse Patient Records regulations: The Federal rules restrict any use of the information to criminally investigate or prosecute any alcohol or drug abuse patient.[facility] AdministrationIn the event this information is protected by the Federal Confidentiality of Alcohol and Drug Abuse Patient Records regulations: The Federal rules restrict any use of the information to criminally investigate or prosecute any alcohol or drug abuse patient.[facility] AdministrationIn the event this information is protected by the Federal Confidentiality of Alcohol and Drug Abuse Patient Records regulations: The Federal rules restrict any use of the information to criminally investigate or prosecute any alcohol or drug abuse patient.[facility] AdministrationIn the event this information is protected by the Federal Confidentiality of Alcohol and Drug Abuse Patient Records regulations: The Federal rules restrict any use of the information to criminally investigate or prosecute any alcohol or drug abuse patient.[facility] AdministrationIn the event this information is protected by the Federal Confidentiality of Alcohol and Drug Abuse Patient Records regulations: The Federal rules restrict any use of the information to criminally investigate or prosecute any alcohol or drug abuse patient.[facility] AdministrationIn the event this information is protected by the Federal Confidentiality of Alcohol and Drug Abuse Patient Records regulations: The Federal rules restrict any use of the information to criminally investigate or prosecute any alcohol or drug abuse patient.[facility] AdministrationIn the event this information is protected by the Federal Confidentiality of Alcohol and Drug Abuse Patient Records regulations: The Federal rules restrict any use of the information to criminally investigate or prosecute any alcohol or drug abuse patient.[facility] AdministrationIn the event this information is protected by the Federal Confidentiality of Alcohol and Drug Abuse Patient Records regulations: The Federal rules restrict any use of the information to criminally investigate or prosecute any alcohol or drug abuse patient.[facility] AdministrationIn the event this information is protected by the Federal Confidentiality of Alcohol and Drug Abuse Patient Records regulations: The Federal rules restrict any use of the information to criminally investigate or prosecute any alcohol or drug abuse patient.[facility] AdministrationIn the event this information is protected by the Federal Confidentiality of Alcohol and Drug Abuse Patient Records regulations: The Federal rules restrict any use of the information to criminally investigate or prosecute any alcohol or drug abuse patient.[facility] AdministrationIn the event this information is protected by the Federal Confidentiality of Alcohol and Drug Abuse Patient Records regulations: The Federal rules restrict any use of the information to criminally investigate or prosecute any alcohol or drug abuse patient.[facility] AdministrationIn the event this information is protected by the Federal Confidentiality of Alcohol and Drug Abuse Patient Records regulations: The Federal rules restrict any use of the information to criminally investigate or prosecute any alcohol or drug abuse patient.[facility] AdministrationIn the event this information is protected by the Federal Confidentiality of Alcohol and Drug Abuse Patient Records regulations: The Federal rules restrict any use of the information to criminally investigate or prosecute any alcohol or drug abuse patient.[facility] AdministrationIn the event this information is protected by the Federal Confidentiality of Alcohol and Drug Abuse Patient Records regulations: The Federal rules restrict any use of the information to criminally investigate or prosecute any alcohol or drug abuse patient.[facility] AdministrationIn the event this information is protected by the Federal Confidentiality of Alcohol and Drug Abuse Patient Records regulations: The Federal rules restrict any use of the information to criminally investigate or prosecute any alcohol or drug abuse patient.[facility] AdministrationIn the event this information is protected by the Federal Confidentiality of Alcohol and Drug Abuse Patient Records regulations: The Federal rules restrict any use of the information to criminally investigate or prosecute any alcohol or drug abuse patient.[facility] AdministrationIn the event this information is protected by the Federal Confidentiality of Alcohol and Drug Abuse Patient Records regulations: The Federal rules restrict any use of the information to criminally investigate or prosecute any alcohol or drug abuse patient.[facility] AdministrationIn the event this information is protected by the Federal Confidentiality of Alcohol and Drug Abuse Patient Records regulations: The Federal rules restrict any use of the information to criminally investigate or prosecute any alcohol or drug abuse patient.[facility] AdministrationIn the event this information is protected by the Federal Confidentiality of Alcohol and Drug Abuse Patient Records regulations: The Federal rules restrict any use of the information to criminally investigate or prosecute any alcohol or drug abuse patient.[facility] AdministrationIn the event this information is protected by the Federal Confidentiality of Alcohol and Drug Abuse Patient Records regulations: The Federal rules restrict any use of the information to criminally investigate or prosecute any alcohol or drug abuse patient.[facility] AdministrationIn the event this information is protected by the Federal Confidentiality of Alcohol and Drug Abuse Patient Records regulations: The Federal rules restrict any use of the information to criminally investigate or prosecute any alcohol or drug abuse patient.[facility] AdministrationIn the event this information is protected by the Federal Confidentiality of Alcohol and Drug Abuse Patient Records regulations: The Federal rules restrict any use of the information to criminally investigate or prosecute any alcohol or drug abuse patient.[facility] AdministrationIn the event this information is protected by the Federal Confidentiality of Alcohol and Drug Abuse Patient Records regulations: The Federal rules restrict any use of the information to criminally investigate or prosecute any alcohol or drug abuse patient.[facility] AdministrationIn the event this information is protected by the Federal Confidentiality of Alcohol and Drug Abuse Patient Records regulations: The Federal rules restrict any use of the information to criminally investigate or prosecute any alcohol or drug abuse patient.[facility] AdministrationIn the event this information is protected by the Federal Confidentiality of Alcohol and Drug Abuse Patient Records regulations: The Federal rules restrict any use of the information to criminally investigate or prosecute any alcohol or drug abuse patient.[facility] AdministrationIn the event this information is protected by the Federal Confidentiality of Alcohol and Drug Abuse Patient Records regulations: The Federal rules restrict any use of the information to criminally investigate or prosecute any alcohol or drug abuse patient.[facility] AdministrationIn the event this information is protected by the Federal Confidentiality of Alcohol and Drug Abuse Patient Records regulations: The Federal rules restrict any use of the information to criminally investigate or prosecute any alcohol or drug abuse patient.[facility] AdministrationIn the event this information is protected by the Federal Confidentiality of Alcohol and Drug Abuse Patient Records regulations: The Federal rules restrict any use of the information to criminally investigate or prosecute any alcohol or drug abuse patient.[facility] AdministrationIn the event this information is protected by the Federal Confidentiality of Alcohol and Drug Abuse Patient Records regulations: The Federal rules restrict any use of the information to criminally investigate or prosecute any alcohol or drug abuse patient.[facility] AdministrationIn the event this information is protected by the Federal Confidentiality of Alcohol and Drug Abuse Patient Records regulations: The Federal rules restrict any use of the information to criminally investigate or prosecute any alcohol or drug abuse patient.[facility] AdministrationIn the event this information is protected by the Federal Confidentiality of Alcohol and Drug Abuse Patient Records regulations: The Federal rules restrict any use of the information to criminally investigate or prosecute any alcohol or drug abuse patient.[facility] AdministrationIn the event this information is protected by the Federal Confidentiality of Alcohol and Drug Abuse Patient Records regulations: The Federal rules restrict any use of the information to criminally investigate or prosecute any alcohol or drug abuse patient.[facility] AdministrationIn the event this information is protected by the Federal Confidentiality of Alcohol and Drug Abuse Patient Records regulations: The Federal rules restrict any use of the information to criminally investigate or prosecute any alcohol or drug abuse patient.[facility] AdministrationIn the event this information is protected by the Federal Confidentiality of Alcohol and Drug Abuse Patient Records regulations: The Federal rules restrict any use of the information to criminally investigate or prosecute any alcohol or drug abuse patient.[facility] AdministrationIn the event this information is protected by the Federal Confidentiality of Alcohol and Drug Abuse Patient Records regulations: The Federal rules restrict any use of the information to criminally investigate or prosecute any alcohol or drug abuse patient.[facility] AdministrationIn the event this information is protected by the Federal Confidentiality of Alcohol and Drug Abuse Patient Records regulations: The Federal rules restrict any use of the information to criminally investigate or prosecute any alcohol or drug abuse patient.[facility] AdministrationIn the event this information is protected by the Federal Confidentiality of Alcohol and Drug Abuse Patient Records regulations: The Federal rules restrict any use of the information to criminally investigate or prosecute any alcohol or drug abuse patient.[facility] AdministrationIn the event this information is protected by the Federal Confidentiality of Alcohol and Drug Abuse Patient Records regulations: The Federal rules restrict any use of the information to criminally investigate or prosecute any alcohol or drug abuse patient.[facility] AdministrationIn the event this information is protected by the Federal Confidentiality of Alcohol and Drug Abuse Patient Records regulations: The Federal rules restrict any use of the information to criminally investigate or prosecute any alcohol or drug abuse patient.[facility] AdministrationIn the event this information is protected by the Federal Confidentiality of Alcohol and Drug Abuse Patient Records regulations: The Federal rules restrict any use of the information to criminally investigate or prosecute any alcohol or drug abuse patient.[facility] AdministrationIn the event this information is protected by the Federal Confidentiality of Alcohol and Drug Abuse Patient Records regulations: The Federal rules restrict any use of the information to criminally investigate or prosecute any alcohol or drug abuse patient.[facility] AdministrationIn the event this information is protected by the Federal Confidentiality of Alcohol and Drug Abuse Patient Records regulations: The Federal rules restrict any use of the information to criminally investigate or prosecute any alcohol or drug abuse patient.[facility] AdministrationIn the event this information is protected by the Federal Confidentiality of Alcohol and Drug Abuse Patient Records regulations: The Federal rules restrict any use of the information to criminally investigate or prosecute any alcohol or drug abuse patient.[facility] AdministrationIn the event this information is protected by the Federal Confidentiality of Alcohol and Drug Abuse Patient Records regulations: The Federal rules restrict any use of the information to criminally investigate or prosecute any alcohol or drug abuse patient.[facility] AdministrationIn the event this information is protected by the Federal Confidentiality of Alcohol and Drug Abuse Patient Records regulations: The Federal rules restrict any use of the information to criminally investigate or prosecute any alcohol or drug abuse patient.[facility] AdministrationIn the event this information is protected by the Federal Confidentiality of Alcohol and Drug Abuse Patient Records regulations: The Federal rules restrict any use of the information to criminally investigate or prosecute any alcohol or drug abuse patient.[facility] AdministrationIn the event this information is protected by the Federal Confidentiality of Alcohol and Drug Abuse Patient Records regulations: The Federal rules restrict any use of the information to criminally investigate or prosecute any alcohol or drug abuse patient.[facility] AdministrationIn the event this information is protected by the Federal Confidentiality of Alcohol and Drug Abuse Patient Records regulations: The Federal rules restrict any use of the information to criminally investigate or prosecute any alcohol or drug abuse patient.[facility] AdministrationIn the event this information is protected by the Federal Confidentiality of Alcohol and Drug Abuse Patient Records regulations: The Federal rules restrict any use of the information to criminally investigate or prosecute any alcohol or drug abuse patient.[facility] AdministrationIn the event this information is protected by the Federal Confidentiality of Alcohol and Drug Abuse Patient Records regulations: The Federal rules restrict any use of the information to criminally investigate or prosecute any alcohol or drug abuse patient.[facility] AdministrationIn the event this information is protected by the Federal Confidentiality of Alcohol and Drug Abuse Patient Records regulations: The Federal rules restrict any use of the information to criminally investigate or prosecute any alcohol or drug abuse patient.[facility] AdministrationIn the event this information is protected by the Federal Confidentiality of Alcohol and Drug Abuse Patient Records regulations: The Federal rules restrict any use of the information to criminally investigate or prosecute any alcohol or drug abuse patient.[facility] AdministrationIn the event this information is protected by the Federal Confidentiality of Alcohol and Drug Abuse Patient Records regulations: The Federal rules restrict any use of the information to criminally investigate or prosecute any alcohol or drug abuse patient.[facility] AdministrationIn the event this information is protected by the Federal Confidentiality of Alcohol and Drug Abuse Patient Records regulations: The Federal rules restrict any use of the information to criminally investigate or prosecute any alcohol or drug abuse patient.[facility] AdministrationIn the event this information is protected by the Federal Confidentiality of Alcohol and Drug Abuse Patient Records regulations: The Federal rules restrict any use of the information to criminally investigate or prosecute any alcohol or drug abuse patient.[facility] AdministrationIn the event this information is protected by the Federal Confidentiality of Alcohol and Drug Abuse Patient Records regulations: The Federal rules restrict any use of the information to criminally investigate or prosecute any alcohol or drug abuse patient.[facility] AdministrationIn the event this information is protected by the Federal Confidentiality of Alcohol and Drug Abuse Patient Records regulations: The Federal rules restrict any use of the information to criminally investigate or prosecute any alcohol or drug abuse patient.[facility] AdministrationIn the event this information is protected by the Federal Confidentiality of Alcohol and Drug Abuse Patient Records regulations: The Federal rules restrict any use of the information to criminally investigate or prosecute any alcohol or drug abuse patient.[facility] AdministrationIn the event this information is protected by the Federal Confidentiality of Alcohol and Drug Abuse Patient Records regulations: The Federal rules restrict any use of the information to criminally investigate or prosecute any alcohol or drug abuse patient.[facility] AdministrationIn the event this information is protected by the Federal Confidentiality of Alcohol and Drug Abuse Patient Records regulations: The Federal rules restrict any use of the information to criminally investigate or prosecute any alcohol or drug abuse patient.[facility] AdministrationIn the event this information is protected by the Federal Confidentiality of Alcohol and Drug Abuse Patient Records regulations: The Federal rules restrict any use of the information to criminally investigate or prosecute any alcohol or drug abuse patient.[facility] AdministrationIn the event this information is protected by the Federal Confidentiality of Alcohol and Drug Abuse Patient Records regulations: The Federal rules restrict any use of the information to criminally investigate or prosecute any alcohol or drug abuse patient.[facility] AdministrationIn the event this information is protected by the Federal Confidentiality of Alcohol and Drug Abuse Patient Records regulations: The Federal rules restrict any use of the information to criminally investigate or prosecute any alcohol or drug abuse patient.[facility] AdministrationIn the event this information is protected by the Federal Confidentiality of Alcohol and Drug Abuse Patient Records regulations: The Federal rules restrict any use of the information to criminally investigate or prosecute any alcohol or drug abuse patient.[facility] AdministrationIn the event this information is protected by the Federal Confidentiality of Alcohol and Drug Abuse Patient Records regulations: The Federal rules restrict any use of the information to criminally investigate or prosecute any alcohol or drug abuse patient.[facility] AdministrationIn the event this information is protected by the Federal Confidentiality of Alcohol and Drug Abuse Patient Records regulations: The Federal rules restrict any use of the information to criminally investigate or prosecute any alcohol or drug abuse patient.[facility] AdministrationIn the event this information is protected by the Federal Confidentiality of Alcohol and Drug Abuse Patient Records regulations: The Federal rules restrict any use of the information to criminally investigate or prosecute any alcohol or drug abuse patient.[facility] AdministrationIn the event this information is protected by the Federal Confidentiality of Alcohol and Drug Abuse Patient Records regulations: The Federal rules restrict any use of the information to criminally investigate or prosecute any alcohol or drug abuse patient.[facility] AdministrationIn the event this information is protected by the Federal Confidentiality of Alcohol and Drug Abuse Patient Records regulations: The Federal rules restrict any use of the information to criminally investigate or prosecute any alcohol or drug abuse patient.[facility] AdministrationIn the event this information is protected by the Federal Confidentiality of Alcohol and Drug Abuse Patient Records regulations: The Federal rules restrict any use of the information to criminally investigate or prosecute any alcohol or drug abuse patient.[facility] AdministrationIn the event this information is protected by the Federal Confidentiality of Alcohol and Drug Abuse Patient Records regulations: The Federal rules restrict any use of the information to criminally investigate or prosecute any alcohol or drug abuse patient.[facility] AdministrationIn the event this information is protected by the Federal Confidentiality of Alcohol and Drug Abuse Patient Records regulations: The Federal rules restrict any use of the information to criminally investigate or prosecute any alcohol or drug abuse patient.[facility] AdministrationIn the event this information is protected by the Federal Confidentiality of Alcohol and Drug Abuse Patient Records regulations: The Federal rules restrict any use of the information to criminally investigate or prosecute any alcohol or drug abuse patient.[facility] AdministrationIn the event this information is protected by the Federal Confidentiality of Alcohol and Drug Abuse Patient Records regulations: The Federal rules restrict any use of the information to criminally investigate or prosecute any alcohol or drug abuse patient.[facility] AdministrationIn the event this information is protected by the Federal Confidentiality of Alcohol and Drug Abuse Patient Records regulations: The Federal rules restrict any use of the information to criminally investigate or prosecute any alcohol or drug abuse patient.[facility] AdministrationIn the event this information is protected by the Federal Confidentiality of Alcohol and Drug Abuse Patient Records regulations: The Federal rules restrict any use of the information to criminally investigate or prosecute any alcohol or drug abuse patient.[facility] AdministrationIn the event this information is protected by the Federal Confidentiality of Alcohol and Drug Abuse Patient Records regulations: The Federal rules restrict any use of the information to criminally investigate or prosecute any alcohol or drug abuse patient.[facility] AdministrationIn the event this information is protected by the Federal Confidentiality of Alcohol and Drug Abuse Patient Records regulations: The Federal rules restrict any use of the information to criminally investigate or prosecute any alcohol or drug abuse patient.[facility] AdministrationIn the event this information is protected by the Federal Confidentiality of Alcohol and Drug Abuse Patient Records regulations: The Federal rules restrict any use of the information to criminally investigate or prosecute any alcohol or drug abuse patient.[facility] Reason for Visit (unrecogniz ed section and content) Reason Comments PT Discharge Specialty Diagnoses / Procedures Referred By Contac t Referred To Contact [facility] Diagnoses Contusion of scalp, subsequent encounter Fall, subsequent encounter Proximal leg weakness Procedures CONSULT TO PHYSICAL THERAPY PHYSICAL THERAPY EVALUATION HIGH COMPLEX 45 MINS Dallas Reed MD [address] [place] [address] Phone: tel: fax: [facility] [address] [place] [address] Referral ID Status Reason Start Date Expiration Date Visits Requested Visits Authorized [id number] Authorized PCP Requested Referral Auto-Generate d Referral 11/09/2024 11/09/2025 99 99 Reason Comments Physical Therapy Reason Onset Date Comments Community Monitoring Outreach 12/08/2021 CH F / CKD CDM Outreach Reason Comments 8 month follow-up Reason Onset Date Comments Community Monitoring Outreach 02/06/2022 CH F/ CKD CDM Outreach Reason Onset Date Comments Community Monitoring Outreach 02/09/2022 CH F/ CKD Telephonic Outreach Reason Comments Blood Pressure Check Reason Comments Cough Pt denied SOB, chest pain, exposure +Covid family, bodyaches, fever Nasal Congestion Reason Comments Results Reason Onset Date Comments Refill Request 03/11/2022 Reason Onset Date Comments Refill Request 05/26/2022 Reason Comments Diarrhea Diarrhea x 1 week Reason Comments Diarrhea Several times daily X 2 wks. Reason Comments Diarrhea Specialty Diagnoses / Procedures Referred By Contac t Referred To Contact Gastroenterology Diagnoses Diarrhea, unspecified type Procedures CONSULT TO GASTROENTEROLOGY OFFICE/OUTPATIENT NEW HIGH MDM 60-74 MINUTES Dallas Reed MD [address] [place] [address] Referral ID Status Reason Start Date Expiration Date V isits Requested Visits Authorized [id number] Closed PCP Requested Referral 2023 2024 1 1 Reason Comments Medication Authorization Reason Comments Ear Problem ear pressure, hard o f hearing x 1 week Reason Comments Blood Pressure Reason Comments 6 week follow up Reason Onset Date Comments Community Monitoring Outreach 05/20/2023 Reason Comments Refill Request Reason Comments Medicare Wellness Exam F/U 6 months Reason Onset Date Comments Community Monitoring Outreach 11/28/2023 Reason Comments Consult Reason Comments F/U 3 Month Reason Comments bilateral shoulder pain X 2 weeks Reason Onset Date Comments Refill Request 02/10/2024 Reason Comments fax referral to Dr Flaherty Reason Onset Date Comments Refill Request 03/06/2024 Reason Onset Date Comments Community Monitoring Outreach 03/07/2024 Reason Comments Arthritis Shoulder Pain, R mary ulvin is worse, states he was up all night in pain. Since january Reason Onset Date Comments Refill Request 03/22/2024 Reason Comments Future Appointment Reason Comments Same Day Appointment low blood pressure per ENT, dizziness. Patient checked BP at home and it was elevated Reason Comments Hospital F/U Reason Onset Date Comments [facility] 06/22/2024 Engagement Call Reason Comments ER F/U Reason Onset Date Comments [facility] 07/22/2024 Chronic Disease Management Routine Call Reason Onset Date Comments [facility] 07/24/2024 Chronic Disease Management Routine Call Reason Comments Surgical Clearance Forms Reason Onset Date Comments [facility] 08/24/2024 Chronic Disease Management Routine Call Reason Onset Date Comments [facility] 08/28/2024 Chronic Disease Management Routine Call Reason Comments Medicare Wellness Exam Reason Onset Date Comments Refill Request 10/02/2024 Reason Comments Fall Fell ion concrete [facility] [employer]ps on Wednesday, states he slipped on ice, has contusion on back of head, denies any pain, or any sx of concussion, states he also fell going in the door Reason Comments Express Care follow-up Reason Comments PT Eval Reason Comments Abdominal Pain LLQ pain x 4 days Reason Comments Critical Care Transport Reason Comments Patient Question Medication Problem Reason Onset Date Comments Transition Of Care 12/04/2024 Heart Failure 12/04/2024 TCM Pharmacy-Hos pital discharge 12/01/24 Reason Comments Medication Question Reason Onset Date Comments Refill Request 12/11/2024 Reason Onset Date Comments Refill Request 02/15/2025 Reason Onset Date Comments Care Coordination 02/26/2025 Chart review a nd outreach for chf gdmt care path Reason Comments Follow Up 6 months Reason Onset Date Comments Refill Request 03/28/2025 Reason Comments Fatigue No energy x 2 months Care Teams (unrecognized sec tion and content) Team Status: Active Member Role Status Dates Dr. Dallas Reed MD Primary Care Provider Active Team Status: Inactive Member Role Status Dates Dr. Dallas Reed MD Primary Care Provider Active Start: September 15, 2024 End: September 15, 2024 Dr. Dallas Reed MD Referring Provider Active Start: September 15, 2024 End: September 15, 2024 Dr. Lara Fonseca MD Attending Provider Active Start: September 15, 2024 End: September 15, 2024 Team Status: Inactive Member Role Status Dates Dr. Dallas Reed MD Primary Care Provider Active Start: November 28, 2024 End: November 28, 2024 Dr. Nate Gray MD Attending Provider Active S tart: November 28, 2024 End: November 28, 2024 Dr. Nate Gray MD Emergency Provider Active S tart: November 28, 2024 End: November 28, 2024 Team Status: Inactive Member Role Status Dates Dr. Dallas Reed MD Primary Care Provider Active Start: December 25, 2024 End: December 25, 2024 Dr. Dallas Reed MD Referring Provider Active Start: December 25, 2024 End: December 25, 2024 Dr. Dustin Hawk MD Attending Provider Active S tart: December 25, 2024 End: December 25, 2024 Team Status: Inactive Member Role Status Dates Dr. Dallas Reed MD Primary Care Provider Active Start: January 12, 2025 End: January 12, 2025 Dr. Hernandez King MD Emergency Provider Active Sta rt: January 12, 2025 End: January 12, 2025 Toll Collector Relationship Specialty Start Date End Date Dallas Reed MD [address] [facility] [place] [address] PCP - General Internal Medicine 02/10/18 Denver Elizlade, drophammer operatorWine Maker Internal Medicine 02/05/21 Toll Collector Relationship Specialty Start Date End Date Dallas Reed MD [address] [facility] [place] [address] PCP - General Internal Medicine 02/10/18 Denver Elizalde, drophammer operatorWine Maker Internal Medicine 02/05/21 Toll Collector Relationship Specialty Start Date End Date Dallas Reed MD [address] [facility] [place] [address] PCP - General Internal Medicine 02/10/18 Denver Elizalde, drophammer operatorWine Maker Internal Medicine 02/05/21 Toll Collector Relationship Specialty Start Date End Date Dallas Reed MD [address] [facility] [place] [address] PCP - General Internal Medicine 02/10/18 Denver Elizalde, drophammer operatorWine Maker Internal Medicine 02/05/21 Toll Collector Relationship Specialty Start Date End Date Dallas Reed MD [address] [facility] [place] [address] PCP - General Internal Medicine 02/10/18 Denver Elizalde, drophammer operatorWine Maker Internal Medicine 02/05/21 Toll Collector Relationship Specialty Start Date End Date Dallas Reed MD [address] [facility] [place] [address] PCP - General Internal Medicine 02/10/18 Denver Elizalde, drophammer operatorWine Maker Internal Medicine 02/05/21 Toll Collector Relationship Specialty Start Date End Date Dallas Reed MD [address] [facility] [place] [address] PCP - General Internal Medicine 02/10/18 Denver Elizalde, drophammer operatorWine Maker Internal Medicine 02/05/21 Toll Collector Relationship Specialty Start Date End Date Dallas Reed MD [address] [facility] [place] [address] PCP - General Internal Medicine 02/10/18 Fide Goff, drophammer operatorWine Maker Internal Medicine 02/05/21 Toll Collector Relationship Specialty Start Date End Date Dallas Reed MD [address] [facility] [place] [address] PCP - General Internal Medicine 02/10/18 Fide Goff, drophammer operatorWine Maker Internal Medicine 02/05/21 Toll Collector Relationship Specialty Start Date End Date Dallas Reed MD [address] [facility] [place] [address] PCP - General Internal Medicine 02/10/18 Fide Goff, drophammer operatorWine Maker Internal Medicine 02/05/21 Toll Collector Relationship Specialty Start Date End Date Dallas Reed MD [address] [facility] [place] [address] PCP - General Internal Medicine 02/10/18 Fide Goff, drophammer operatorWine Maker Internal Medicine 02/05/21 Team Status: Active Member Role Status Dates Dr. Dallas Reed MD Family Provider Active Dr. Dallas Reed MD Primary Care Provider Active Team Status: Active Member Role Status Dates Dr. Dallas Reed MD Primary Care Provider Active Dr. Omid Perez MD Attending Provider, Referring Provider Active Team Status: Inactive Member Role Status Dates Dr. Dallas Reed MD Primary Care Provider Active Dr. Omid Perez MD Attending Provider, Referring Provider Active Toll Collector Relationship Specialty Start Date End Date Dallas Reed MD [address] [facility] [place] [address] PCP - General Internal Medicine 02/10/18 Fide Goff, drophammer operatorWine Maker Internal Medicine 02/05/21 Toll Collector Relationship Specialty Start Date End Date Dallas Reed MD [address] [facility] [place] [address] PCP - General Internal Medicine 02/10/18 Fide Goff, drophammer operatorWine Maker Internal Medicine 02/05/21 Team Status: Inactive Member Role Status Dates Dr. Dallas Reed MD Primary Care Provider, Refer ring Provider Active Dr. Omid Perez MD Attending Provider Active Team Status: Active Member Role Status Dates Dr. Dallas Reed MD Primary Care Provider Active Dr. Omid Perez MD Admit Provider, Attending Provider, Referring Provider, Other Provider Active Dr. Dieter Christianson MD Other Provider Active Team Status: Inactive Member Role Status Dates Dr. Dallas Reed MD Primary Care Provider Active Dr. Omid Perez MD Admit Provider, Attending Provider, Referring Provider Active Dr. Dieter Christianson MD Other Provider Active Toll Collector Relationship Specialty Start Date End Date Dallas Reed MD [address] [facility] [place] [address] PCP - General Internal Medicine 02/10/18 Fide Goff, drophammer operatorWine Maker Internal Medicine 02/05/21 Toll Collector Relationship Specialty Start Date End Date Dallas Reed MD [address] [facility] [place] [address] PCP - General Internal Medicine 02/10/18 Fide Goff, drophammer operatorWine Maker Internal Medicine 02/05/21 Team Status: Active Member Role Status Dates Dr. Dallas Reed MD Primary Care Provider Active Dr. Donato Longoria MD Attending Provider Active Dr. Omid Perez MD Referring Provider Active Team Status: Inactive Member Role Status Dates Dr. Dallas Reed MD Primary Care Provider Active Benita PEREZ, PA-C Attending Provider, Referring Provider Active Toll Collector Relationship Specialty Start Date End Date Dallas Reed MD [address] [facility] [place] [address] PCP - General Internal Medicine 02/10/18 Fide Goff, drophammer operatorWine Maker Internal Medicine 02/05/21 Team Status: Inactive Member Role Status Dates Dr. Dallas Reed MD Primary Care Provider Active Dr. Jovanny Rodriguez MD Attending Provider, Referring Provider Active Toll Collector Relationship Specialty Start Date End Date Dallas Reed MD [address] [facility] [place] [address] PCP - General Internal Medicine 02/10/18 Fide Goff, drophammer operatorWine Maker Internal Medicine 02/05/21 Toll Collector Relationship Specialty Start Date End Date Dallas Reed MD [address] [facility] [place] [address] PCP - General Internal Medicine 02/10/18 Fide Goff, drophammer operatorWine Maker Internal Medicine 02/05/21 Toll Collector Relationship Specialty Start Date End Date Dallas Reed MD [address] [facility] [place] [address] PCP - General Internal Medicine 02/10/18 Fide Goff, drophammer operatorWine Maker Internal Medicine 02/05/21 Toll Collector Relationship Specialty Start Date End Date Dallas Reed MD [address] [facility] [place] [address] PCP - General Internal Medicine 02/10/18 Fide Goff, drophammer operatorWine Maker Internal Medicine 02/05/21 Toll Collector Relationship Specialty Start Date End Date Dallas Reed MD [address] [facility] [place] [address] PCP - General Internal Medicine 02/10/18 Fide Goff, drophammer operatorWine Maker Internal Medicine 02/05/21 Toll Collector Relationship Specialty Start Date End Date Dallas Reed MD [address] [facility] [place] [address] PCP - General Internal Medicine 02/10/18 Fide Goff, drophammer operatorWine Maker Internal Medicine 02/05/21 Toll Collector Relationship Specialty Start Date End Date Dallas Reed MD [address] [facility] [place] [address] PCP - General Internal Medicine 02/10/18 Fide Goff, drophammer operatorWine Maker Internal Medicine 02/05/21 Toll Collector Relationship Specialty Start Date End Date Dallas Reed MD [address] [facility] [place] [address] PCP - General Internal Medicine 02/10/18 Fide Goff, drophammer operatorWine Maker Internal Medicine 02/05/21 Toll Collector Relationship Specialty Start Date End Date Dallas Reed MD [address] [facility] [place] [address] PCP - General Internal Medicine 02/10/18 Fide Goff, drophammer operatorWine Maker Internal Medicine 02/05/21 Toll Collector Relationship Specialty Start Date End Date Dallas Reed MD [address] [facility] [place] [address] PCP - General Internal Medicine 02/10/18 Fide Goff, drophammer operatorWine Maker Internal Medicine 02/05/21 Toll Collector Relationship Specialty Start Date End Date Dallas Reed MD [address] [facility] [place] [address] PCP - General Internal Medicine 02/10/18 Fide Goff, drophammer operatorWine Maker Internal Medicine 02/05/21 Toll Collector Relationship Specialty Start Date End Date Dallas Reed MD [address] [facility] [place] [address] PCP - General Internal Medicine 02/10/18 Fide Goff, drophammer operatorWine Maker Internal Medicine 02/05/21 Toll Collector Relationship Specialty Start Date End Date Dallas Reed MD [address] [facility] [place] [address] PCP - General Internal Medicine 02/10/18 Fide Goff, drophammer operatorWine Maker Internal Medicine 02/05/21 Toll Collector Relationship Specialty Start Date End Date Dallas Reed MD [address] [facility] [place] [address] PCP - General Internal Medicine 02/10/18 Fide Goff, drophammer operatorWine Maker Internal Medicine 02/05/21 Darya Borden, TECHNICAL TRAINING SPECIALIST.RIDDLER OPERATOR [address] [facility] [place] [address] Host/Hostess Head Internal Medicine 08/28/24 Toll Collector Relationship Specialty Start Date End Date Dallas Reed MD [address] [facility] [place] [address] PCP - General Internal Medicine 02/10/18 Fide Goff, drophammer operatorWine Maker Internal Medicine 02/05/21 Darya Borden, TECHNICAL TRAINING SPECIALIST.RIDDLER OPERATOR [address] [place] [address] Host/Hostess Head Internal Medicine 08/28/24 Toll Collector Relationship Specialty Start Date End Date Dallas Reed MD [address] [place] [address] PCP - General Internal Medicine 02/10/18 Fide Goff, drophammer operatorWine Maker Internal Medicine 02/05/21 Darya Borden, TECHNICAL TRAINING SPECIALIST.RIDDLER OPERATOR [address] [facility] [place] [address] Host/Hostess Head Internal Medicine 08/28/24 Toll Collector Relationship Specialty Start Date End Date Dallas Reed MD [address] [facility] [place] [address] PCP - General Internal Medicine 02/10/18 Darya Borden, TECHNICAL TRAINING SPECIALIST.RIDDLER OPERATOR [address] [place] [address] Host/Hostess Head Internal Medicine 08/28/24 Toll Collector Relationship Specialty Start Date End Date Dallas Reed MD [address] [facility] [place] [address] PCP - General Internal Medicine 02/10/18 Darya Borden, TECHNICAL TRAINING SPECIALIST.RIDDLER OPERATOR [address] [facility] [place] [address] Host/Hostess Head Internal Medicine 08/28/24 Toll Collector Relationship Specialty Start Date End Date Dallas Reed MD [address] [facility] [place] [address] PCP - General Internal Medicine 02/10/18 Darya Borden, TECHNICAL TRAINING SPECIALIST.RIDDLER OPERATOR [address] [place] [address] Host/Hostess Head Internal Medicine 08/28/24 Toll Collector Relationship Specialty Start Date End Date Dallas Reed MD [address] [place] [address] PCP - General Internal Medicine 02/10/18 Darya Borden, TECHNICAL TRAINING SPECIALIST.RIDDLER OPERATOR [address] [place] [address] Host/Hostess Head Internal Medicine 08/28/24 Toll Collector Relationship Specialty Start Date End Date Dallas Reed MD [address] [place] [address] PCP - General Internal Medicine 02/10/18 Darya Borden, TECHNICAL TRAINING SPECIALIST.RIDDLER OPERATOR [address] [place] [address] Host/Hostess Head Internal Medicine 08/28/24 Toll Collector Relationship Specialty Start Date End Date Dallas Reed MD [address] [place] [address] PCP - General Internal Medicine 02/10/18 Darya Borden, TECHNICAL TRAINING SPECIALIST.RIDDLER OPERATOR [address] [place] [address] Host/Hostess Head Internal Medicine 08/28/24 Toll Collector Relationship Specialty Start Date End Date Dallas Reed MD [address] [place] [address] PCP - General Internal Medicine 02/10/18 Darya Borden, TECHNICAL TRAINING SPECIALIST.RIDDLER OPERATOR [address] [place] [address] Host/Hostess Head Internal Medicine 08/28/24 Toll Collector Relationship Specialty Start Date End Date Dallas Reed MD [address] [place] [address] PCP - General Internal Medicine 02/10/18 Darya Borden, TECHNICAL TRAINING SPECIALIST.RIDDLER OPERATOR [address] [place] [address] Host/Hostess Head Internal Medicine 08/28/24 Toll Collector Relationship Specialty Start Date End Date Dallas Reed MD [address] [place] [address] PCP - General Internal Medicine 02/10/18 Darya Borden, TECHNICAL TRAINING SPECIALIST.RIDDLER OPERATOR [address] [place] [address] Host/Hostess Head Internal Medicine 08/28/24 Toll Collector Relationship Specialty Start Date End Date Dallas Reed MD [address] [place] [address] PCP - General Internal Medicine 02/10/18 Darya Borden, TECHNICAL TRAINING SPECIALIST.RIDDLER OPERATOR [address] [place] [address] Host/Hostess Head Internal Medicine 08/28/24 Toll Collector Relationship Specialty Start Date End Date Dallas Reed MD [address] [place] [address] PCP - General Internal Medicine 02/10/18 Darya Borden, TECHNICAL TRAINING SPECIALIST.RIDDLER OPERATOR [address] [place] [address] Host/Hostess Head Internal Medicine 08/28/24 Yessenia Price [facility] [address] [place], [place] [phone] Transitional Care Pharmacist Pharmacy 12/04/24 01/04/25 Adriane White, CHRISTIANO [facility] [address] [place] [phone] Primary Care Automotive Project Engineer 12/04/24 Toll Collector Relationship Specialty Start Date End Date Dallas Reed MD [address] [place] [address] PCP - General Internal Medicine 02/10/18 Darya Borden, TECHNICAL TRAINING SPECIALIST.RIDDLER OPERATOR [address] [place] [address] Host/Hostess Head Internal Medicine 08/28/24 Yessenia Price [facility] [address] [place], [place] [phone] Transitional Care Pharmacist Pharmacy 12/04/24 01/04/25 Adriane White, CHRISTIANO [facility] [address] [place] [address] Primary Care Automotive Project Engineer 12/04/24 Toll Collector Relationship Specialty Start Date End Date Dallas Reed MD [address] [place] [address] PCP - General Internal Medicine 02/10/18 Darya Borden, TECHNICAL TRAINING SPECIALIST.RIDDLER OPERATOR [address] [place] [address] Host/Hostess Head Internal Medicine 08/28/24 Yessenia Price bell [address] [place] [phone] Transitional Care Pharmacist Pharmacy 12/04/24 01/04/25 Adriane White, RN [facility] [address] [place] [phone] Primary Care Automotive Project Engineer 12/04/24 Toll Collector Relationship Specialty Start Date End Date Dallas Reed MD [address] [place] [address] PCP - General Internal Medicine 02/10/18 Darya Borden, TECHNICAL TRAINING SPECIALIST.RIDDLER OPERATOR [address] [place] [id number] Host/Hostess Head Internal Medicine 08/28/24 Yessenia Price [facility] [address] [place], [place] [phone] Transitional Care Pharmacist Pharmacy 12/04/24 01/04/25 Adriane White, CHRISTIANO [facility] [address] [place] [phone] Primary Care Automotive Project Engineer 12/04/24 Toll Collector Relationship Specialty Start Date End Date Dallas Reed MD [address] [place] [address] PCP - General Internal Medicine 02/10/18 Darya Borden, TECHNICAL TRAINING SPECIALIST.RIDDLER OPERATOR [address] [place] [address] Host/Hostess Head Internal Medicine 08/28/24 Yessenia Price bell [address] [place] [phone] Transitional Care Pharmacist Pharmacy 12/04/24 01/04/25 Adriane White RN [facility] [address] [place] [phone] Primary Care Automotive Project Engineer 12/04/24 Toll Collector Relationship Specialty Start Date End Date Dallas Reed MD [address] [place], [place] [address] PCP - General Internal Medicine 02/10/18 Darya Borden, TECHNICAL TRAINING SPECIALIST.RIDDLER OPERATOR [address] [place], [place] [address] Host/Hostess Head Internal Medicine 08/28/24 Yessenia Price [facility] [address] [place] [address] Transitional Care Pharmacist Pharmacy 12/04/24 01/04/25 Adriane White RN [facility] [address] [place] [phone] Primary Care Automotive Project Engineer 12/04/24 Toll Collector Relationship Specialty Start Date End Date Dallas Reed MD [address] [place], [place] [address] PCP - General Internal Medicine 02/10/18 Darya Borden, TECHNICAL TRAINING SPECIALIST.RIDDLER OPERATOR [address] [place], [place] [address] Host/Hostess Head Internal Medicine 08/28/24 Yessenia Price [facility] [address] [place], [place] [phone] Transitional Care Pharmacist Pharmacy 12/04/24 01/04/25 Adriane White RN [facility] [address] [place] [phone] Primary Care Automotive Project Engineer 12/04/24 Toll Collector Relationship Specialty Start Date End Date Dallas Reed MD [address] [place] [address] PCP - General Internal Medicine 02/10/18 Darya Borden, TECHNICAL TRAINING SPECIALIST.RIDDLER OPERATOR [address] [place] [address] Host/Hostess Head Internal Medicine 08/28/24 [facility] [place] [address] Transitional Care Pharmacist Pharmacy 12/04/24 01/04/25 Adriane White, CHRISTIANO [facility] [address] [place] [phone] Primary Care Automotive Project Engineer 12/04/24 Toll Collector Relationship Specialty Start Date End Date Dallas Reed MD [address] [place] [address] PCP - General Internal Medicine 02/10/18 Darya Borden, TECHNICAL TRAINING SPECIALIST.RIDDLER OPERATOR [address] [place] [address] Host/Hostess Head Internal Medicine 08/28/24 Yessenia Price [facility] [place] [address] Transitional Care Pharmacist Pharmacy 12/04/24 01/04/25 Adriane White, CHRISTIANO [facility] [address] [place] [phone] Primary Care Automotive Project Engineer 12/04/24 Team Status: Active Member Role Status Dates Dr. Dallas Reed MD Primary Care Provider Active Start: August 23, 2024 Dr. Lara Fonseca MD Attending Provider Active Start: August 23, 2024 Dr. Lara Fonseca MD Referring Provider Active Start: August 23, 2024 Dr. Lara Fonseca MD Other Provider Active S tart: August 23, 2024 Team Status: Inactive Member Role Status Dates Dr. Dallas Reed MD Primary Care Provider Active Start: August 31, 2024 End: August 31, 2024 Dr. Lara Fonseca MD Attending Provider Active Start: August 31, 2024 End: August 31, 2024 Dr. Lara Fonseca MD Referring Provider Active Start: August 31, 2024 End: August 31, 2024 Team Status: Active Member Role Status Dates Dr. Dallas Reed MD Primary Care Provider Active Start: August 31, 2024 Dr. Lara Fonseca MD Attending Provider Active Start: August 31, 2024 Dr. Lara Fonseca MD Referring Provider Active Start: August 31, 2024 Dr. Lara Fonseca MD Other Provider Active S tart: August 31, 2024 Team Status: Inactive Member Role Status Dates Dr. Dallas Reed MD Primary Care Provider Active Start: November 28, 2024 End: November 28, 2024 Dr. Nate Gray MD Emergency Provider Active S tart: November 28, 2024 End: November 28, 2024 Toll Collector Relationship Specialty Start Date End Date Dallas Reed MD [address] [place] [id number] PCP - General Internal Medicine 02/10/18 Darya Borden, TECHNICAL TRAINING SPECIALIST.RIDDLER OPERATOR [address] [place] [id number] Host/Hostess Head Internal Medicine 08/28/24 Yessenia Price RPh [address] [place], [place] [phone] Transitional Care Pharmacist Pharmacy 12/04/24 01/04/25 Adriane White, [place] [address] Primary Care Automotive Project Engineer 12/04/24 Toll Collector Relationship Specialty Start Date End Date Dallas Reed MD [address] [place] [address] PCP - General Internal Medicine 02/10/18 Darya Borden, TECHNICAL TRAINING SPECIALIST.RIDDLER OPERATOR [address] [place] [address] Host/Hostess Head Internal Medicine 08/28/24 [facility] [address] [place] [address] Transitional Care Pharmacist Pharmacy 12/04/24 01/04/25 Adriane White, CHRISTIANO [facility] [address] [place] [address] Primary Care Automotive Project Engineer 12/04/24 Toll Collector Relationship Specialty Start Date End Date Dallas Reed MD [address] [place] [address] PCP - General Internal Medicine 02/10/18 Darya Borden, TECHNICAL TRAINING SPECIALIST.RIDDLER OPERATOR [address] [place] [address] Host/Hostess Head Internal Medicine 08/28/24 Yessenia Price [facility] [address] [place] [address] Transitional Care Pharmacist Pharmacy 12/04/24 01/04/25 Adriane White, CHRISTIANO [facility] [address] [place] [address] Primary Care Automotive Project Engineer 12/04/24 Toll Collector Relationship Specialty Start Date End Date Dallas Reed MD [address] [place], [place] [address]181 PCP - General Internal Medicine 02/10/18 Darya Borden, DUSTIN.RIDDLER OPERATOR [address] [place] [address] Host/Hostess Head Internal Medicine 08/28/24 Adriane White, RN [facility] [address] [place] [address] Wine Maker 01/02/25 Team Status: Inactive Member Role Status Dates Dr. Dallas Reed MD Primary Care Provider Active Start: January 12, 2025 End: January 12, 2025 Dr. Hernandez King MD Attending Provider Active Sta rt: January 12, 2025 End: January 12, 2025 Dr. Hernandez King MD Emergency Provider Active Sta rt: January 12, 2025 End: January 12, 2025 Team Status: Inactive Member Role Status Dates Dr. Dallas Reed MD Primary Care Provider Active Start: January 18, 2025 End: January 18, 2025 CHRIS Orellana Attending Provider Active Star t: January 18, 2025 End: January 18, 2025 CHRIS Orellana Referring Provider Active Star t: January 18, 2025 End: January 18, 2025 Team Status: Inactive Member Role Status Dates Dr. Dallas Reed MD Primary Care Provider Active Start: February 14, 2025 End: February 14, 2025 Dr. Dustin Hawk MD Attending Provider Active S tart: February 14, 2025 End: February 14, 2025 Dr. Dustin Hawk MD Referring Provider Active S tart: February 14, 2025 End: February 14, 2025 Team Status: Active Member Role Status Dates Dr. Dallas Reed MD Primary Care Provider Active Start: February 14, 2025 Dr. Dustin Hawk MD Attending Provider Active S tart: February 14, 2025 Dr. Dustin Hwak MD Referring Provider Active S tart: February 14, 2025 Dr. Dustin Hawk MD Other Provider Active Start : February 14, 2025 Toll Collector Relationship Specialty Start Date End Date Dallas Reed MD [address] [place] [address] PCP - General Internal Medicine 02/10/18 Darya Borden, TECHNICAL TRAINING SPECIALIST.RIDDLER OPERATOR [address] [facility] [place] [address] Host/Hostess Head Internal Medicine 08/28/24 Adriane White, CHRISTIANO [facility] [address] [place] [phone] Wine Maker 01/02/25 Toll Collector Relationship Specialty Start Date End Date Dallas Reed MD [address] [facility] [place] [address] PCP - General Internal Medicine 02/10/18 Darya Borden, TECHNICAL TRAINING SPECIALIST.RIDDLER OPERATOR [address] [facility] [place] [address] Host/Hostess Head Internal Medicine 08/28/24 Adriane White RN [facility] [address] [place] [address] Wine Maker 01/02/25 Toll Collector Relationship Specialty Start Date End Date Dallas Reed MD [address] [facility] [place] [address] PCP - General Internal Medicine 02/10/18 Darya Borden, TECHNICAL TRAINING SPECIALIST.RIDDLER OPERATOR [address] [facility] [place] [address] Host/Hostess Head Internal Medicine 08/28/24 Adriane White RN [facility] [address] [place] [phone] Wine Maker 01/02/25 Team Status: Inactive Member Role Status Dates Dr. Dallas Reed MD Primary Care Provider Active Start: February 27, 2025 End: February 27, 2025 Dr. Dallas Reed MD Referring Provider Active Start: February 27, 2025 End: February 27, 2025 CHRIS Orellana Attending Provider Active Star t: February 27, 2025 End: February 27, 2025 Toll Collector Relationship Specialty Start Date End Date Dallas Reed [address] [facility] [place] [address] PCP - General 07/04/19 Toll Collector Relationship Specialty Start Date End Date Dallas Reed MD [address] [facility] [place] [address] PCP - General Internal Medicine 02/10/18 Darya Borden, TECHNICAL TRAINING SPECIALIST.RIDDLER OPERATOR [address] [facility] [place] [address] Host/Hostess Head Internal Medicine 08/28/24 Adriane White, CHRISTIANO [facility] [address] [facility] [place] [address] Wine Maker 01/02/25 Toll Collector Relationship Specialty Start Date End Date Dallas Reed [address] [facility] [place] [address] PCP - General 07/04/19 Toll Collector Relationship Specialty Start Date End Date Dallas Reed [address] [place] [address] PCP - General 07/04/19 Toll Collector Relationship Specialty Start Date End Date Dallas Reed [address] [facility] [place] [address] PCP - General 07/04/19 Toll Collector Relationship Specialty Start Date End Date Dallas Reed [address] [facility] [place] [address] PCP - General 07/04/19 Toll Collector Relationship Specialty Start Date End Date Dallas Reed MD [address] [facility] [place] [address] PCP - General Internal Medicine 02/10/18 Darya Borden, TECHNICAL TRAINING SPECIALIST.RIDDLER OPERATOR [address] [facility] [place] [address] Host/Hostess Head Internal Medicine 08/28/24 Adriane White, RN [facility] [address] [place] [address] Wine Maker 01/02/25 Toll Collector Relationship Specialty Start Date End Date Dallas Reed MD [address] [facility] [place] [address] PCP - General Internal Medicine 02/10/18 Darya Borden, TECHNICAL TRAINING SPECIALIST.RIDDLER OPERATOR [address] [facility] [place] [address] Host/Hostess Head Internal Medicine 08/28/24 Adriane White, RN [facility] [address] [place] [phone] Wine Maker 01/02/2503/20 Team Status: Active Member Role/Relationship Status Dates Dr. Dallas Reed MD Primary Care Provider Active Team Status: Inactive Member Role/Relationship Status Dates Dr. Dallas Reed MD Primary Care Provider Active Start: December 25, 2024 End: December 25, 2024 Dr. Dallas Reed MD Referring Provider Active Start: December 25, 2024 End: December 25, 2024 Dr. Dustin Hawk MD Attending Provider Active S tart: December 25, 2024 End: December 25, 2024 Team Status: Inactive Member Role/Relationship Status Dates Dr. Dallas Reed MD Primary Care Provider Active Start: January 12, 2025 End: January 12, 2025 Dr. Hernandez King MD Attending Provider Active Sta rt: January 12, 2025 End: January 12, 2025 Dr. Hernandez King MD Emergency Provider Active Sta rt: January 12, 2025 End: January 12, 2025 Team Status: Inactive Member Role/Relationship Status Dates Dr. Dallas Reed MD Primary Care Provider Active Start: January 18, 2025 End: January 18, 2025 CHRIS Orellana Attending Provider Active Star t: January 18, 2025 End: January 18, 2025 CHRIS Orellana Referring Provider Active Star t: January 18, 2025 End: January 18, 2025 Team Status: Inactive Member Role/Relationship Status Dates Dr. Dallas Reed MD Primary Care Provider Active Start: February 14, 2025 End: February 14, 2025 Dr. Dustin Hawk MD Attending Provider Active S tart: February 14, 2025 End: February 14, 2025 Dr. Dustin Hawk MD Referring Provider Active S tart: February 14, 2025 End: February 14, 2025 Team Status: Active Member Role/Relationship Status Dates Dr. Dallas Reed MD Primary Care Provider Active Start: February 14, 2025 Dr. Dustin Hawk MD Attending Provider Active S tart: February 14, 2025 Dr. Dustin Hawk MD Referring Provider Active S tart: February 14, 2025 Dr. Dustin Hawk MD Other Provider Active Start : February 14, 2025 Team Status: Inactive Member Role/Relationship Status Dates Dr. Dallas Reed MD Primary Care Provider Active Start: February 27, 2025 End: February 27, 2025 Dr. Dallas Reed MD Referring Provider Active Start: February 27, 2025 End: February 27, 2025 CHRIS Orellana Attending Provider Active Star t: February 27, 2025 End: February 27, 2025 Team Status: Inactive Member Role/Relationship Status Dates Dr. Dallas Reed MD Primary Care Provider Active Start: April 18, 2025 End: April 18, 2025 Dr. Dallas Reed MD Referring Provider Active Start: April 18, 2025 End: April 18, 2025 Dr. Dustin Hawk MD Attending Provider Active S tart: April 18, 2025 End: April 18, 2025 Team Status: Inactive Member Role/Relationship Status Dates Dr. Dallas Reed MD Primary Care Provider Active Start: January 12, 2025 End: January 12, 2025 Dr. Hernandez King MD Attending Provider Active Sta rt: January 12, 2025 End: January 12, 2025 Dr. Hernandez King MD Emergency Provider Active Sta rt: January 12, 2025 End: January 12, 2025 Team Status: Inactive Member Role/Relationship Status Dates Dr. Dallas Reed MD Primary Care Provider Active Start: January 18, 2025 End: January 18, 2025 CHRIS Orellana Attending Provider Active Star t: January 18, 2025 End: January 18, 2025 CHRIS Orellana Referring Provider Active Star t: January 18, 2025 End: January 18, 2025 Team Status: Inactive Member Role/Relationship Status Dates Dr. Dallas Reed MD Primary Care Provider Active Start: February 14, 2025 End: February 14, 2025 Dr. Dustin Hawk MD Attending Provider Active S tart: February 14, 2025 End: February 14, 2025 Dr. Dustin Hawk MD Referring Provider Active S tart: February 14, 2025 End: February 14, 2025 Team Status: Active Member Role/Relationship Status Dates Dr. Dallas Reed MD Primary Care Provider Active Start: February 14, 2025 Dr. Dustin Hawk MD Attending Provider Active S tart: February 14, 2025 Dr. Dustin Hawk MD Referring Provider Active S tart: February 14, 2025 Dr. Dustin Hawk MD Other Provider Active Start : February 14, 2025 Team Status: Inactive Member Role/Relationship Status Dates Dr. Dallas Reed MD Primary Care Provider Active Start: February 27, 2025 End: February 27, 2025 Dr. Dallas Reed MD Referring Provider Active Start: February 27, 2025 End: February 27, 2025 CHRIS Orellana Attending Provider Active Star t: February 27, 2025 End: February 27, 2025 Team Status: Inactive Member Role/Relationship Status Dates Dr. Dallas Reed MD Primary Care Provider Active Start: April 18, 2025 End: April 18, 2025 Dr. Dallas Reed MD Referring Provider Active Start: April 18, 2025 End: April 18, 2025 Dr. Dustin Hawk MD Attending Provider Active S tart: April 18, 2025 End: April 18, 2025 Team Status: Inactive Member Role/Relationship Status Dates Dr. Dallas Reed MD Primary Care Provider Active Start: April 30, 2025 End: April 30, 2025 Dr. Dustin Hawk MD Attending Provider Active S tart: April 30, 2025 End: April 30, 2025 Dr. Dustin Hawk MD Referring Provider Active S tart: April 30, 2025 End: April 30, 2025 Team Status: Inactive Member Role/Relationship Status Dates Dr. Dallas Reed MD Primary Care Provider Active Start: May 10, 2025 End: May 10, 2025 Dr. Dallas Reed MD Referring Provider Active Start: May 10, 2025 End: May 10, 2025 Mike Jay NP, MANAGER PROJECT MANAGEMENT-C Attending Provider Active S tart: May 10, 2025 End: May 10, 2025 Team Status: Inactive Member Role/Relationship Status Dates Dr. Dallas Reed MD Primary Care Provider Active Start: January 18, 2025 End: January 18, 2025 CHRIS Orellana Attending Provider Active Star t: January 18, 2025 End: January 18, 2025 CHRIS Orellana Referring Provider Active Star t: January 18, 2025 End: January 18, 2025 Team Status: Inactive Member Role/Relationship Status Dates Dr. Dallas Reed MD Primary Care Provider Active Start: February 14, 2025 End: February 14, 2025 Dr. Dustin Hawk MD Attending Provider Active S tart: February 14, 2025 End: February 14, 2025 Dr. Dustin Hawk MD Referring Provider Active S tart: February 14, 2025 End: February 14, 2025 Team Status: Active Member Role/Relationship Status Dates Dr. Dallas Reed MD Primary Care Provider Active Start: February 14, 2025 Dr. Dustin Hawk MD Attending Provider Active S tart: February 14, 2025 Dr. Dustin Hawk MD Referring Provider Active S tart: February 14, 2025 Dr. Dustin Hawk MD Other Provider Active Start : February 14, 2025 Team Status: Inactive Member Role/Relationship Status Dates Dr. Dallas Reed MD Primary Care Provider Active Start: February 27, 2025 End: February 27, 2025 Dr. Dallas Reed MD Referring Provider Active Start: February 27, 2025 End: February 27, 2025 CHRIS Orellana Attending Provider Active Star t: February 27, 2025 End: February 27, 2025 Team Status: Inactive Member Role/Relationship Status Dates Dr. Dallas Reed MD Primary Care Provider Active Start: April 18, 2025 End: April 18, 2025 Dr. Dallas Reed MD Referring Provider Active Start: April 18, 2025 End: April 18, 2025 Dr. Dustin Hawk MD Attending Provider Active S tart: April 18, 2025 End: April 18, 2025 Team Status: Inactive Member Role/Relationship Status Dates Dr. Dallas Reed MD Primary Care Provider Active Start: April 30, 2025 End: April 30, 2025 Dr. Dustin Hawk MD Attending Provider Active S tart: April 30, 2025 End: April 30, 2025 Dr. Dustin Hawk MD Referring Provider Active S tart: April 30, 2025 End: April 30, 2025 Team Status: Inactive Member Role/Relationship Status Dates Dr. Dallas Reed MD Primary Care Provider Active Start: May 10, 2025 End: May 10, 2025 Dr. Dallas Reed MD Referring Provider Active Start: May 10, 2025 End: May 10, 2025 Mike Jay MANAGER PROJECT MANAGEMENT, MANAGER PROJECT MANAGEMENT-C Attending Provider Active S tart: May 10, 2025 End: May 10, 2025 Team Status: Inactive Member Role/Relationship Status Dates Dr. Dallas Reed MD Primary Care Provider Active Start: May 10, 2025 End: May 10, 2025 Mike Jay MANAGER PROJECT MANAGEMENT, MANAGER PROJECT MANAGEMENT-C Attending Provider Active S tart: May 10, 2025 End: May 10, 2025 Mike Jay MANAGER PROJECT MANAGEMENT, MANAGER PROJECT MANAGEMENT-C Referring Provider Active S tart: May 10, 2025 End: May 10, 2025 Toll Collector Relationship Specialty Start Date End Date Dallas Reed MD [address] [place] [address] PCP - General Internal Medicine 02/10/18 Darya Borden, TECHNICAL TRAINING SPECIALIST.RIDDLER OPERATOR [address] [place] [address] Host/Hostess Head Internal Medicine 08/28/24 Goals (unrecognized section and content) Goals may be documented in a n alternate sectionGoals may be documented in an alternate sectionGoals may be documented in an alternate sectionGoals may be documented in an alternate sectionGoals may be documented in an alternate sectionGoals may be documented in an alternate sectionGoals may be documented in an alternate sectionGoals may be documented in an alternate sectionGoals may be documented in an alternate sectionGoals may be documented in an alternate sectionGoals may be documented in an alternate section FOR RECORDS PERTAINING TO PATIENTS WHO ARE OR HAVE BEEN ENROLLED IN A CHEMICAL DEPENDENCY/SUBSTANCEABUSE PROGRAM, SOME INFORMATION MAY BE OMITTED. This clinical summary was aggregated from multiple sources. Caution should be exercised in using it in the provision of clinical care. This summary normalizes information from multiple sources, and as a consequence, information in this document may materially change the coding, format and clinical context of patient data. In addition, data may be omitted in some cases. CLINICAL DECISIONS SHOULD BE BASED ON THE PRIMARY CLINICAL RECORDS. [employer] [facility]. provides no warranty or guarantee of the accuracy or completeness of information in this document.
--- NOTE | 2025-05-21 03:36 | PCM.HP.STD ---
[facility] - General General Date of Admission: 05/21/25 Date of Service: 05/21/25 Chief Complaint: Chest Pain. 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 Haas of vascular surgery, history of stenosis of Right internal carotid artery; s/p Right CEA, history of TIA (05/2024), CKD; stage ~IIIa, MING; on ferrous sulfate, history of diverticulosis, history of IBS, BPH; on doxazosin and OA; with lumbar disc disease s/p lumbar laminectomy x 2 who presents to [facility] ER complaining of chest pain. Mr. Sy reports his symptoms began when he got out of bed on the evening of May 20, 2025 at approximately 23:30 hours feeling that he could not breathe. He admits to associated chest pain that was substernal, pressure-like, severe and nonradiating with nothing seeming to make the pain better or worse and patient feel like he was carrying all. He then tried to sit up and walk around with persistent shortness of breath so he took an antacid thinking his symptoms may have been due to indigestion, but when this did not relieve his symptoms he decided to come in for further evaluation and treatment. He states he was feeling fine when he went to bed and he denies recent illness or medication changes. He also denies associated fever, chills, abdominal pain, nausea, vomiting, diarrhea, constipation, dysuria, hematuria, headache or rash. In the ER he was initially noted to have persistent tachyarrhythmia that was regular at ~150 bpm which ER physician suspected was due to Atrial Flutter; with RVR with corresponding elevated initial troponin T of 93 ng/L worrisome for superimposed non-ST elevation [place] vs acute cardiac stain related to sustained tachyarrhythmia with AE of Chronic Diastolic CHF; with preserved LVEF with elevated NT pro-BNP II of 3,942 pg/mL present on admission with CXR that revealed increased mild central pulmonary venous congestion with unchanged emphysema and mild increase in bibasilar atelectatic pulmonary changes in addition to laboratory evidence of mild DALTON; in the setting of CKD stage ~IIIa with elevated serum creatinine of 1.86 mg/dL with a eGFR of 35 mL/min (up from 1.53 mg/dL with eGFR down from 44 L/min on May 10, 2025) with an incidentally noted elevated TSH of 9.79 present on admission. He was then admitted to the PCU for ongoing care for status expected to extend beyond 2 midnights. [facility] Medical History Spigelian hernia Wears hearing aid Wears glasses History of steroid therapy Arthritis History of renal disease TIA (transient ischemic attack) Ataxia History of echocardiogram Easy bruising History of IBS Former smoker History of stress test Cardiology follow-up encounter History of irregular heartbeat Preop cardiovascular exam Stenosis of right internal carotid artery Abdominal aortic 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 Essential hypertension Lumbar disc disease 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 Hyperlipidemia Diverticulosis Pre-operative cardiovascular examination Anemia 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, NYHA class 2 RSV (respiratory syncytial virus pneumonia) Shortness of breath Cough productive of purulent sputum Home Medications ?Medication ?Instructions ?Recorded ?Last Taken ?Type losartan 100 mg tablet 100 mg PO DAILY BP 05/17/19 02/14/25 History multivitamin 1 tab PO DAILY supplement 05/18/19 05/21/24 History ascorbic acid (vitamin C) 500 mg 1,000 mg PO DAILY supplement 02/14/20 05/23/24 History capsule doxazosin 8 mg tablet 8 mg PO QHS prostate 05/23/24 01/10/25 History hydralazine 100 mg tablet 100 mg PO TID blood pressure 05/23/24 02/14/25 History magnesium oxide 400 mg (241.3 mg 400 mg PO DAILY supplement 05/23/24 05/21/24 History magnesium) tablet bempedoic acid 180 mg tablet 180 mg PO DAILY 07/11/24 01/12/25 History (Nexletol) ezetimibe 10 mg tablet 10 mg PO DAILY 07/11/24 02/14/25 History levothyroxine 25 mcg tablet 25 mcg PO DAILY 11/28/24 02/14/25 History cholecalciferol (vitamin D3) 125 125 mcg PO DAILY 01/12/25 Unknown History mcg (5,000 unit) tablet (Vitamin D3) ferrous sulfate 325 mg (65 mg 325 mg PO DAILY 01/12/25 01/12/25 History iron) tablet (Feosol) nifedipine 60 mg tablet,extended 60 mg PO DAILY 01/12/25 02/14/25 History release furosemide 40 mg tablet (Lasix) 40 mg PO DAILY PRN SOB #14 tabs 05/10/25 Unknown Rx carvedilol 6.25 mg tablet 6.25 mg PO BID 05/21/25 Unknown History furosemide 20 mg tablet 20 mg PO DAILY 05/21/25 Unknown History Allergy/AdvReac Type Severity Reaction Status Date / Time lisinopril Allergy Intermediate Rash Verified 05/21/25 01:22 atorvastatin calcium (From Allergy Other Verified 05/21/25 01:22 Lipitor) clonidine Allergy Unknown Verified 05/21/25 01:22 rosuvastatin calcium (From Allergy Other Verified 05/21/25 01:22 Crestor) [id number]-[id number]-[id number] Reductase Allergy Other Verified 05/21/25 01:22 Inhibitor (Zhrpgae-Wkl-Ppl Reductase Inhibitor) Family History Father Lung cancer Liver cancer Mother Oral cancer Surgical History S/P spigelian hernia repair, follow-up exam S/P AAA repair (~02/2025) History of right-sided carotid endarterectomy Hx of cataract surgery Hx of appendectomy History of tonsillectomy History of back surgery History of colonoscopy History of blepharoplasty History of inguinal hernia repair History of umbilical hernia repair 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 Social History household members: spouse Smoking Status: Former smoker second hand exposure: No alcohol intake: never substance use type: does not use caffeine: Yes Type: coffee Number of servings: 2 ROS ROS Narrative Review of Systems: Constitutional: Patient denies fever or chills. Eyes: Patient denies changes in vision or discharge from eyes. ENT: Patient denies runny nose, sore throat or ear pain. Resp: Patient admits to shortness of breath but he denies cough. CV: Patient admits to chest pain with palpitations as per HPI. He denies lower extremity edema. GI: Patient denies abdominal pain, nausea, vomiting, diarrhea or constipation. : Patient denies dysuria or hematuria. MSK: Patient denies arthralgias or myalgias. Skin: Patient denies rash, abscess, wounds or jaundice. Psych: Patient denies symptoms of uncontrolled depression or anxiety. Neuro: Patient denies headache, paresthesias or focal neurologic deficits. Allergy: Patient denies lip swelling, tongue swelling or urticaria. Hematology: Patient denies easy bleeding or easy bruisability. Endocrinology: Patient denies polyuria, polydipsia, polyphagia or heat/cold intolerance. 14 point ROS otherwise negative except for positives noted above in HPI. Vital Signs Vital Signs Vital Signs: 05/21/25 01:21 05/21/25 01:31 05/21/25 01:54 Temperature 98.4 F Temperature Source Oral Pulse Rate 160 H 140 H Respiratory Rate 26 H 30 H Blood Pressure 141/102 H 138/99 H Blood Pressure Mean 115 112 Pulse Ox 98 100 Oxygen Delivery Method Room Air Room Air 05/21/25 01:56 05/21/25 03:00 Temperature Temperature Source Pulse Rate 87 82 Respiratory Rate 15 Blood Pressure 116/77 Blood Pressure Mean 90 Pulse Ox 96 Oxygen Delivery Method Room Air Weight Weight: 140 lb 10.479 oz Body Mass Index (BMI) 21.4 Physical Exam Const alert, oriented x3, no apparent distress and average body habitus Constitutional Narrative: Elderly gentleman who is nontoxic in appearance General Appearance: cooperative HEENT normocephalic, head/scalp atraumatic, hearing grossly normal bilaterally and moist oral mucous membranes Eyes PERRL, EOMs intact bilaterally and conjunctivae normal Neck no lymphadenopathy, supple and no JVD Resp normal respiratory effort, no retractions, no use of accessory muscles and clear to auscultation bilaterally Cardio regular rate and regular rhythm GI normal to inspection, nondistended, normoactive bowel sounds, soft to palpation, non-tender and non-distended Extremity normal to inspection, full ROM and no clubbing, cyanosis or edema Extremity Narrative: Patient has 2+ radial and dorsalis pedis pulses with no signs of edema. Skin Skin Narrative: Patient has evidence of rash, abscess, wounds or jaundice. Neuro oriented x3, CN's II-XII intact bilaterally, moves all extremities and no focal motor deficits Sensorium / Orientation: awake, alert, oriented to person, oriented to place and oriented to time Speech: speech normal Psych affect normal Results Medical Records Data Attestation: I reviewed the patient's medical records Lab / Micro Data Attestation: I reviewed the patient's lab results. 05/21/25 01:25 05/21/25 01:25 Labs: Laboratory Results - last 24 hr 05/21/25 01:25: WBC 4.5, RBC 3.58 L, Hgb 10.5 L, Hct 32.6 L, MCV 91.1, MCH 29.3, MCHC 32.2, RDW Std Deviation 49.6 H, RDW Coeff of Erma 14.7 H, Plt Count 92 L, MPV 11.2, Immature Gran % (Auto) 0.700, Neut % (Auto) 73.0 H, Lymph % (Auto) 16.2 L, Irion % (Auto) 5.8, Eos % (Auto) 3.6, Baso % (Auto) 0.7, Absolute Neuts (auto) 3.3, Absolute Lymphs (auto) 0.72 L, Nucleated RBC % 0, PT 16.0 H, INR 1.3, APTT 45.1 H, Sodium 140, Potassium 4.2, Chloride 104, Carbon Dioxide 21.4, Anion Gap 15, BUN 46 H, Creatinine 1.86 H, Estim Creat Clear Calc 26.20 L, Est GFR (MDRD) Non-Af 35 L, BUN/Creatinine Ratio 24.7 H, Glucose 115 H, Calcium 9.2, Magnesium 2.1, Troponin T High Sens 93 H*, TSH 9.790 H Imaging Radiology Impression Chest X-Ray 05/21/25 02:05 IMPRESSION: Increased mild central pulmonary venous congestion. Unchanged emphysema. Mild increase in bilateral basilar atelectatic pulmonary changes. Reading Location: [place] [address] Assessment & Plan Assessment/Plan (1) Non-ST elevation [place] (NSTEMI): (2) Acute exacerbation of chronic heart failure: (3) New onset atrial flutter: (4) DALTON (acute kidney injury): (5) Chronic renal failure, stage 3 (moderate): QUALIFIERS: Chronic kidney disease stage 3 subtype: stage 3a (GFR 45-59) Qualified Code(s): N18.31 - Chronic kidney disease, stage 3a (6) Elevated TSH: (7) Abdominal aortic 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: QUALIFIERS: Abdominal aorta location: infrarenal aorta Qualified Code(s): I71.43 - Infrarenal abdominal aortic aneurysm, without rupture (8) Type II endoleak of aortic graft: PLAN: Plan 1. Persistent tachyarrhythmia that was regular at ~150 bpm which ER physician suspected was due to Atrial Flutter; with RVR - Admit to ICU in case patient requires IV nitroglycerin as per cardiology recommendations and monitor for recurrent arrhythmia. Patient already started on IV heparin for #2. We will start BASA and continue carvedilol at current dose with normal blood pressure and no further chest discomfort after tachyarrhythmia resolved. 2. Elevated initial troponin T of 93 ng/L with second troponin T rising to 222 ng/L worrisome for superimposed non-ST elevation [place] vs acute cardiac stain related to sustained tachyarrhythmia due to #1 - Continue IV heparin begun in the ER. Serialize troponin. Patient denies chest pain at this time. Give acetaminophen as needed for [id number] (level 1-5/10) pain or fever. Give morphine IV as needed for severe (level 6-10/10) pain. Finally, we will consult [facility] to see this patient on rounds in the a.m. for further recommendations with help appreciated in advance. 3. AE of chronic diastolic CHF; with preserved LVEF with elevated NT pro-BNP II of 3,942 pg/mL present on admission with corresponding CXR that revealed increased mild central pulmonary venous congestion with unchanged emphysema and mild increase in bibasilar atelectatic pulmonary changes attributable to #1 & #2 - Give furosemide IV and gently diurese in light of #4. We will avoid potentially nephrotoxic agents including losartan. Check CXR and NT pro-BNP II daily to follow trend. 4. Suspected Mild DALTON; in the setting of CKD stage ~IIIa with elevated serum creatinine of 1.86 mg/dL with a eGFR of 35 mL/min (up from 1.53 mg/dL with eGFR down from 44 L/min on May 10, 2025) complicating #1 - #3 - Give albumin 12.5 g IV once and recheck renal indices daily to follow trend to monitor response to treatment. 5. Incidentally noted elevated TSH of 9.79 present on admission compounding #1 - #4 in the setting of previously known hypothyroidism on levothyroxine 25 mcg daily - Check Free T3/T4 and increase levothyroxine to 50 mcg daily. 6. 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 Haas of vascular surgery adding to the medical complexity of #1 - #5 - Noted. 7. Essential hypertension; on losartan, nifedipine, carvedilol twice daily, hydralazine 3 times daily and furosemide - Maintain home regimen but change furosemide to IV for #3 and hold losartan for #4. 8. Hyperlipidemia; on ezetimibe and bempedoic acid -Present therapy to continue plus check Lipid Profile in light of #2. 9. Former tobacco abuse - Noted. 10. History of stenosis of Right internal carotid artery; s/p Right CEA - Noted. 11. History of TIA (05/2024) - Noted with no evidence of recurrence at this time. 12. MING; on ferrous sulfate - Maintain iron supplement. 13. History of diverticulosis - Noted. 14. History of IBS - Stable. 15. BPH; on doxazosin - Continue doxazosin as before. 16. OA; with lumbar disc disease s/p lumbar laminectomy x 2 who - Give acetaminophen prn as outlined in #2. 17. DVT prophylaxis - Patient already on IV heparin for #2. Total time: Approximately (but not less than) 75 minutes. Charges/Coding Visit Charges Inpatient E&M: 35950 Init Hosp L3
--- OUTSIDE RECORDS SUMMARY | 2025-05-21 03:51 | XMS RPT_ITS | CCD ---
Author Organization [facility] Care Team Providers Care Waiter/Waitress Room Service Name Role Phone SIMON MOODY Unavailable Unavailable [...] Dr. Dieter Christianson Other Provider [place] MENJIVAR, iFde Durán Unavailable Suyapa Reed, Dr. Haynes Primary Care Provider Chris, Dr. Omid Palomino Attending Provider Dr. Donato Longoria Attending Provider Chris, Dr. Omid Palomino Referring Provider Maxime, Dr. Haynes Primary Care Provider Maxime, Dr. Haynes Referring Provider Chris, Dr. Omid Palomino Attending Provider Chris, Dr. Omid Palomino Referring Provider Maxime LAWTON, Dallas Tadeo Primary Care Provider [facility] ADZ WORKER.SHUTTLECOCK FEATHER TRIMMER, Darya M Unavailable [facility], Yessenia Unavailable Christopher MENJIVAR, Adriane Unavailable Unavailable [...] -[id number] Maxime LAWTON, Dr. Haynes Referring Provider [facility] CLIENT ADVISOR-C, Mike Tadeo Attending Provider Maxime LAWTON, Dr. Haynes Primary Care Provider Roof CLIENT ADVISOR-C, Mike H Referring Provider Dustin Hawk Attending [...] Unavailable Reed, Dallas Primary Care Unavailable Roof CLIENT ADVISOR, Mike Tadeo Attending Unavailable Roof CLIENT ADVISOR, Mike H Referring Unavailable Reed, Dallas Primary Care Unavailable Reed, Dallas Primary Care Unavailable Noble, Carine Referring Unavailable Noble, Carine Attending Unavailable Reed, Dallas Referring Unavailable Roof CLIENT ADVISOR, Mike Tadeo Attending Unavailable Reed, Dallas Primary Care Unavailable Robotham, Lara Attending Unavailable Reed, Dallas Primary Care Unavailable Reed, Dallas Referring Unavailable Robotham, Lara Attending Unavailable Reed, Dallas Primary Care Unavailable Reed, Dallas Referring Unavailable Donato Longoria Attending Unavailable Reed, Dallas Primary Care Unavailable Fillmore, Dustin Consulting Unavailable Waldo, Dustin Referring Unavailable [...] Dallas Referring Unavailable Dustin Hawk Referring Unavailable uDstin Hawk Attending Unavailable Maxime, Dallas Primary Care Unavailable DARYA BORDEN Referring Unavailable REED, [place]ALL[place] Tadeo Primary Care Unavailable DARYA BORDEN Referring Unavailable MAXIME, D[place] Tadeo Primary Care Unavailable DARYA OBRDEN Attending Unavailable MAXIME, [place] Tadeo Primary Care [...] Translations: [ATORVASTATIN CALCIUM] Drug Allergy [address] [facility] Repository Comment on above: muscle pain (20 sources) cloNIDine; Translations: [CLONIDINE] Drug Allergy [address] [facility] (20 sources) Hmg-Coa Reductase Inhibitors (Statins); Translations: [EEONMWB-SRB-OQC REDUCTASE INHIBITORS] Propensity to adverse reactions (disorder) 6 [facility] (20 sources) lisinopril; Translations: [LISINOPRIL] Drug Allergy [address] [facility] (20 sources) rosuvastatin; Translations: [ROSUVASTATIN CALCIUM] Drug Allergy [address] [facility] Comment on above: muscle pain (1 source) atorvastatin Drug Allergy 9 [place], [place] (15 sources) Hmg-Coa Reductase Inhibitors (Statins) Propensity to adverse reactions to drug 9 Other [place], [place] Comment on above: MUSCLE VERY SORE (1 source) rosuvastatin Drug Allergy 9 [facility] [place] (2 sources) Fwbqhhx-Vsy-Exb Reductase Inhibitor; Translations: [Wmddzkh-Bws-Cpi Reductase Inhibitor] Allergy to substance 2 Other [facility] Repository (20 sources) NIFEdipine; Translations: [NIFEDIPINE] Drug Allergy 5 Swelling [facility] Work Phone: (4 sources) HMG-CoA reductase inhibitor Propensity to adverse reactions 5 [facility] Medications Current Medications Medication Drug Class(es) Dates [...] Comment on above: Take 1 tablet by [facility] twice daily with meals. cholecalciferol 0.125 mg [...] 2025 11:01am supplement take 1 capsule by [facility] once daily Cholecalciferol, Vitamin D3, 25 mcg [...] four times daily. Take 1 tablet by [facility] twice daily. Take 1 tablet by [facility] three times daily. Take 1 tablet by [facility] three times a day. levOCARNitine 500 mg [...] Comment on above: Take 1 tablet by [facility] once daily. Magnesium (20 sources) Start: 05-17-20 [...] mouth daily. Active take 2 tablets by [facility] once daily Magnesium 200 mg tab Take 400 mg by mouth once daily. Suspended take 2 tablets by [facility] once daily Magnesium 200 mg tab Take [...] 90 tablet 12/02/2024 12/02/2024 Discontinued (Side Effects) Parkin-3 Fatty Acids (FISH OI L PO) (1 source) Parkin-3 Fatty Ac ids (FISH OIL PO) Take [...] 1 mg / omega-3 acid ethyl esters (residential) 500 mg / phytosterols 200 mg / pyridoxine hydrochloride 12.5 mg / vitamin b12 0.5 mg oral capsule (20 sources) Vitamin B12, Vitamin D Start: 07-26-2015 End: 01-10-2024 ak-4-jxi-okn-N9-U95-FA-B -6-phy 500-1,000-500 mg-unit-mcg cap Take by mouth. 07/26/2015 01/10/2024 Discontinued (Discontinued by Patient) Start: 07-26-2015 End: 05-23-2024 take 1 capsule by mouth once daily Ve-9-Gve-Qxq-A6-Q92N16-Ng-X-5-Ize 1 EACH ca psule Discontinued 1 NMA PO DAILY July 26, 2015 1:00am May 23, 2024 8:01pm supplement On Hold: Resume on 04/21/23. Start: 07-26-2015 An-5-Wqb-Epa-D 1-X01-ScJ31-Zo-E-1-Soy Active 1 EACH PO DAILY July 26, [...] Comment on above: Take 1 tablet by [facility] twice daily. For cholesterol. COMPOUNDED PRESCRIPTION (20 sources) End: 01-10-20 24 take 1 capsule by mouth once daily COMPOUNDED PRESCRIPTION Take 1 capsule by mouth once daily. Parkin Q Plus 01/10/2024 Discontinued (Discontinued by Patient) End: 01-10-2024 take 1 capsule by mouth once daily COMPOUNDED PRESCRIPTION Take 1 capsule by mouth once daily. Parkin Q Plus 0 01/10/2024 Discontinued (Discontinued by Patient) take 1 capsule by [facility] once daily COMPOUNDED PRESCRIPTION Take 1 capsule by mouth once daily. Parkin Q Plus 0 Active Comment on above: Take 1 capsule by [facility] once daily. Parkin Q Plus diazePAM 2 mg oral tablet [...] (FLONASE) 50 mcg/actuation nasal spray Use 1 [place] in each nostril daily at bedtime. 1 [...] 2019 1:35pm 0.5 ml heparin sodium, porcine 08746 unt/ml prefilled syringe (2 sources) Unfractionated Heparin, [...] sources) Anticholinergic Start: 01-08-2018 End: 05-17-2019 Ipratropium [place] 0.03 % spray,non-aerosol Discontinued 2 NMA INTRANASAL 2 to 3 times per day as needed January 08, 2018 12:00am May 17, 2019 1:35pm Start: 01-08-2018 End: 05-17-2019 Ipratropium [place] Disconti nued 2 SPRAY INTRANASAL 2 to [...] 10-20 mcg/min and titrate per order parameters. Parkin-3 1,050 mg, Fish Oil, 1,050-1,200 mg cap (10 sources) Parkin-3 1,050 mg , Fish Oil, 1,050-1,200 mg [...] APPLY TO AFFECTED AREA polyethylene glycol 3350 16424 mg powder for oral solution (8 sources) Osmotic Laxative Start: 2023 End: 2023 Polyethylene Glycol 3350 (Miralax) 17 gram/dose powder Discontinued 17 g PO DAILY 238 0 July 11, 2024 12:00am August 11, 2024 1:22pm polyethylene glycol 3350 771774 mg / potassium chloride 2970 mg / sodium bicarbonate 6740 mg / sodium chloride 5860 mg / sodium sulfate 28253 mg powder for oral solution (1 source) [...] (Bld)on 05-18-2025 Basophils (Bld) [#/Vol] 0.04 10*3/uL [facility] Basophils/100 WBC (Bld) 0.9 % [facility] Differential cell count method Nom (Bld) Auto [facility] Eosinophils (Bld) [#/Vol] 0.19 10*3/uL [facility] Eosinophils/100 WBC (Bld) 4.1 % [facility] Erythrocyte distribution width (RBC) [Ratio] 14.9 % 11.5 - 15.0 % [facility] Hematocrit (Bld) [Volume fraction] 34.6 % Low 39.0 - 51.0 % [facility] Hemoglobin (Bld) [Mass/Vol] 11.0 g/dL Low 13.0 - 17.0 g/dL [facility] Immature granulocytes (Bld) [#/Vol] [facility] Immature granulocytes/100 WBC (Bld) 0.2 % [facility] Interpretation and review of laboratory results Abnormal [facility] Lymphocytes (Bld) [#/Vol] 1.04 10*3/uL [facility] Lymphocytes/100 WBC (Bld) 22.2 % [facility] MCH (RBC) [Entitic mass] 29.8 pg 26.0 - 34.0 pg [facility] MCHC (RBC) [Mass/Vol] 31.8 g/dL 30.5 - 36.0 g/dL [facility] MCV (RBC) [Entitic vol] 93.8 fL 80.0 - 100.0 fL [facility] Monocytes (Bld) [#/Vol] 0.53 10*3/uL [facility] Monocytes/100 WBC (Bld) 11.3 % [facility] Neutrophils (Bld) [#/Vol] 2.87 10*3/uL [facility] Neutrophils/100 WBC (Bld) 61.3 % [facility] Nucleated RBC (Bld) [#/Vol] [facility] Nucleated RBC/100 WBC (Bld) [Ratio] 0.0 % /100 WBC [facility] Platelet mean volume (Bld) [Entitic vol] 12.6 fL 9.0 - 12.7 fL [facility] Platelets (Bld) [#/Vol] 73 10*3/uL Low [facility] Comment on above: No clot detected. RBC (Bld) [#/Vol] 3.69 10*6/uL Low 4.20 - 6.0 0 m/uL [facility] WBC (Bld) [#/Vol] 4.68 10*3/uL [facility] Basophils (Bld) [#/Vol] 0.04 10*3/uL Normal <0.11 [facility] Comment on above: Order Comment: Speci men Type: BLOOD SPECIMENOrdering Facility: [facility] Address: [address] [place] [address] Performed By: #### 5 7021-8 ####[facility] LABCLIA [id number] [facility] [place] [address] [place] Basophils/100 WBC (Bld) 0.9 % Normal [facility] Comment on above: Order Comment: Speci men Type: BLOOD SPECIMENOrdering Facility: [facility] Address: [address] [place] [address] Performed By: #### 5 7021-8 ####[facility] LABCLIA [id number] [facility] [place] [address] [place] Differential cell count method Nom (Bld) Auto Normal [facility] Comment on above: Order Comment: Speci men Type: BLOOD SPECIMENOrdering Facility: [facility] Address: [address] [place] [address] Performed By: #### 5 7021-8 ####[facility] LABCLIA [id number] [facility] [place] [address] [place] Eosinophils (Bld) [#/Vol] 0.19 10*3/uL Normal <0.46 [facility] Comment on above: Order Comment: Speci men Type: BLOOD SPECIMENOrdering Facility: [facility] Address: [address] [place] [address] Performed By: #### 5 7021-8 ####[facility] LABCLIA [id number] [facility] [place] [address] [place] Eosinophils/100 WBC (Bld) 4.1 % Normal [facility] Comment on above: Order Comment: Speci men Type: BLOOD SPECIMENOrdering Facility: [facility] Address: [address] [place] [address] Performed By: #### 5 7021-8 ####[facility] LABIA [id number] [address] [address] [place] Erythrocyte distribution width (RBC) [Ratio] 14.9 % Normal 11.5-15.0 [facility] Comment on above: Order Comment: Speci men Type: BLOOD SPECIMENOrdering Facility: [facility] Address: [address] [place] [address] Performed By: #### 5 7021-8 ####[facility] LABIA [id number] [place] [address] [place] Hematocrit (Bld) [Volume fraction] 34.6 % Low 39.0-51.0 [facility] Comment on above: Order Comment: Speci men Type: BLOOD SPECIMENOrdering Facility: [facility] Address: [address] [place] [address] Performed By: #### 5 7021-8 ####[facility] LABIA [id number] [place] [address] [place] Hemoglobin (Bld) [Mass/Vol] 11.0 g/dL Low 13.0-17.0 [facility] Comment on above: Order Comment: Speci men Type: BLOOD SPECIMENOrdering Facility: [facility] Address: [address] [place] [address] Performed By: #### 5 7021-8 ####[facility] LABIA [id number] [place] [address] [place] Immature granulocytes (Bld) [#/Vol] 10*3/uL Normal <0.10 [facility] Comment on above: Order Comment: Speci men Type: BLOOD SPECIMENOrdering Facility: [facility] Address: [address] [place] [address] Performed By: #### 5 7021-8 ####[facility] LABCLIA [id number] [place] [address] [place] Immature granulocytes/100 WBC (Bld) 0.2 % Normal [facility] Comment on above: Order Comment: Speci men Type: BLOOD SPECIMENOrdering Facility: [facility] Address: [address] [place] [address] Performed By: #### 5 7021-8 ####[facility] LABCLIA [id number] [place] [address] [place] Lymphocytes (Bld) [#/Vol] 1.04 10*3/uL Normal 1.00-4.00 [facility] Comment on above: Order Comment: Speci men Type: BLOOD SPECIMENOrdering Facility: [facility] Address: [address] [place] [address] Performed By: #### 5 7021-8 ####[facility] LABIA [id number] [place] [address] [place] Lymphocytes/100 WBC (Bld) 22.2 % Normal [facility] Comment on above: Order Comment: Speci men Type: BLOOD SPECIMENOrdering Facility: [facility] Address: [address] [place] [address] Performed By: #### 5 7021-8 ####[facility] LABIA [id number] [place] [address] [place] MCH (RBC) [Entitic mass] 29.8 pg Normal 26.0-34.0 [facility] Comment on above: Order Comment: Speci men Type: BLOOD SPECIMENOrdering Facility: [facility] Address: [address] [place] [address] Performed By: #### 5 7021-8 ####[facility] LABCLIA [id number] [place] [address] [place] MCHC (RBC) [Mass/Vol] 31.8 g/dL Normal 30.5-36.0 [facility] Comment on above: Order Comment: Speci men Type: BLOOD SPECIMENOrdering Facility: [facility] Address: [address] [place] [address] Performed By: #### 5 7021-8 ####[facility] LABCLIA [id number] [place] [address] [place] MCV (RBC) [Entitic vol] 93.8 fL Normal 80.0-100.0 [facility] Comment on above: Order Comment: Speci men Type: BLOOD SPECIMENOrdering Facility: [facility] Address: [address] [place] [address] Performed By: #### 5 7021-8 ####[facility] LABIA [id number] [place] [address] [place] Monocytes (Bld) [#/Vol] 0.53 10*3/uL Normal <0.87 [facility] Comment on above: Order Comment: Speci men Type: BLOOD SPECIMENOrdering Facility: [facility] Address: [address] [place] [address] Performed By: #### 5 7021-8 ####[facility] LABIA [id number] [place] [address] [place] Monocytes/100 WBC (Bld) 11.3 % Normal [facility] Comment on above: Order Comment: Speci men Type: BLOOD SPECIMENOrdering Facility: [facility] Address: [address] [place] [address] Performed By: #### 5 7021-8 ####[facility] LABIA [id number] [place] [address] [place] Neutrophils (Bld) [#/Vol] 2.87 10*3/uL Normal 1.45-7.50 [facility] Comment on above: Order Comment: Speci men Type: BLOOD SPECIMENOrdering Facility: [facility] Address: [address] [place] [address] Performed By: #### 5 7021-8 ####[facility] LABCLIA [id number] [place] [address] [place] Neutrophils/100 WBC (Bld) 61.3 % Normal [facility] Comment on above: Order Comment: Speci men Type: BLOOD SPECIMENOrdering Facility: [facility] Address: [address] [place] [address] Performed By: #### 5 7021-8 ####[facility] LABCLIA [id number] [place] [address] [place] Nucleated RBC (Bld) [#/Vol] 10*3/uL Normal <0.01 [facility] Comment on above: Order Comment: Speci men Type: BLOOD SPECIMENOrdering Facility: [facility] Address: [address] [place] [address] Performed By: #### 5 7021-8 ####[facility] LABIA [id number] [place] [address] [place] Nucleated RBC/100 WBC (Bld) [Ratio] 0.0 /100 WBC Normal [facility] Comment on above: Order Comment: Speci men Type: BLOOD SPECIMENOrdering Facility: [facility] Address: [address] [place] [address] Performed By: #### 5 7021-8 ####[facility] LABIA [id number] [place] [address] [place] Platelet mean volume (Bld) [Entitic vol] 12.6 fL Normal 9.0-12.7 [facility] Comment on above: Order Comment: Speci men Type: BLOOD SPECIMENOrdering Facility: [facility] Address: [address] [place] [address] Performed By: #### 5 7021-8 ####[facility] LABIA [id number] [place] [address] [place] Platelets (Bld) [#/Vol] 73 10*3/uL Low 150-400 [facility] Comment on above: Order Comment: Speci men Type: BLOOD SPECIMENOrdering Facility: [facility] Address: [address] [place] [address] Result Comment: No c lot detected. Performed By: #### 5 7021-8 ####[facility] LABCLIA [id number] [place] [address] [place] RBC (Bld) [#/Vol] 3.69 10*6/uL Low 4.20-6.00 [facility] Comment on above: Order Comment: Speci men Type: BLOOD SPECIMENOrdering Facility: [facility] Address: [address] [place] [address] Performed By: #### 5 7021-8 ####[facility] LABCLIA [id number] [place] [address] [place] WBC (Bld) [#/Vol] 4.68 10*3/uL Normal 3.70-11.00 [facility] Comment on above: Order Comment: Speci men Type: BLOOD SPECIMENOrdering Facility: [facility] Address: [address] [place] [address] Performed By: #### 5 7021-8 ####[facility] LABCLIA [id number] [place] [address] [place] CNOVon 05-18-2025 CNOV Normal [facility] Ferritin SerPl-mCncon 2024 Ferritin [Mass/Vol] 384.0 ng/mL Normal 30.3-565.7 [facility] Comment on above: Order Comment: Speci men Type: BLOOD SPECIMENOrdering Facility: [facility] Address: [address] [place] [address] Performed By: #### 5 0190-8, 2276-4, 3016-3 ####[facility] LABCLIA [id number] [address] [address] [place] Folate SerPl-mCncon 05-18-20 Folate [Mass/Vol] 13.6 ng/mL Normal >4.7 [facility] Comment on above: Order Comment: Speci men Type: BLOOD SPECIMENOrdering Facility: [facility] Address: [address] [place] [address] Performed By: #### 2 132-9, 2284-8 ####[facility] LABCLIA [id number] [place] [id number] [place] Iron and Iron binding capaci ty panelon 05-18-2025 Iron [Mass/Vol] 76 ug/dL Normal 41-186 [facility] Comment on above: Order Comment: Speci men Type: BLOOD SPECIMENOrdering Facility: [facility] Address: [address] [place] [address] Performed By: #### 5 0190-8, 2276-4, 3016-3 ####[facility] LABIA [id number] [address] [place] Iron binding capacity [Mass/Vol] 297 ug/dL Normal 232-386 [facility] Comment on above: Order Comment: Speci men Type: BLOOD SPECIMENOrdering Facility: [facility] Address: [address] [place] [address] Performed By: #### 5 0190-8, 2276-4, 3016-3 ####[facility] LABIA [id number] [place] [id number] [place] Iron/TIBC [Molar ratio] 25.6 % Normal 15.0-57.0 [facility] Comment on above: Order Comment: Speci men Type: BLOOD SPECIMENOrdering Facility: [facility] Address: [address] [place] [address] Performed By: #### 5 0190-8, 2276-4, 3016-3 ####[facility] LABCLIA [id number] [address] [address] [place] TSH SerPl-aCncon 05-18-2025 TSH Qn 9.500 m[IU]/L High 0.270-4.200 [facility] Comment on above: Order Comment: Speci men Type: BLOOD SPECIMENOrdering Facility: [facility] Address: [address] [place], [place] [address] Performed By: #### 5 0190-8, 2276-4, 3016-3 ####[facility] LABCLIA [id number] [place] [id number] [place] Vit B12 SerPl-mCncon 025 Cobalamin (Vitamin B12) [Mass/Vol] 1891 pg/mL High 232-1245 [facility] Comment on above: Order Comment: Speci men Type: BLOOD SPECIMENOrdering Facility: [facility] Address: [address] [place] [address] Performed By: #### 2 132-9, 2284-8 ####[facility] LABCLIA [id number] [place] [id number] [place] Anion gap in Serum or Plasma Ordered By: Mike Jay on 05-10-2025 Anion gap [Moles/Vol] 11 mmol/L 5-15 [facility] BUN/creatinine ratioOrdered By: Mike Jay on 05-10-2025 Urea nitrogen/Creatinine [Mass ratio] 27.0 mg/mg High - [facility] Basic Metabolic Profile (BMP )on 05-10-2025 BUN/CRE 27.0 RATIO High - [facility] Comment on above: Order Comment: SEND CRE TO Performed By: #### L 501.5209, L503.8545, L500.2500 ####[facility] [address] [place], [address] Calcium [Mass/Vol] 9.1 mg/dL Normal 7.6-11.0 [facility] Comment on above: Order Comment: SEND CRE TO Performed By: #### L 501.5200, L503.7505, L500.2500 ####[facility] [address] [place], [address] Chloride [Moles/Vol] 101 mmol/L Normal 98-108 [facility] Comment on above: Order Comment: SEND CRE TO Performed By: #### L 501.5200, L503.7505, L500.2500 ####[facility] [address] [place], [address] CO2 [Moles/Vol] 26.1 mmol/L Normal 21.0-32.0 [facility] Comment on above: Order Comment: SEND CRE TO Performed By: #### L 501.5200, L503.7505, L500.2500 ####[facility] [address] [place], [address] Creatinine [Mass/Vol] 1.53 mg/dL High 0.70-1.20 [facility] Comment on above: Order Comment: SEND CRE TO Performed By: #### L 501.5200, L503.7505, L500.2500 ####[facility] [address] [place], [address] GAP 11 Normal 5-15 [facility] Comment on above: Order Comment: SEND CRE TO Performed By: #### L 501.5200, L503.7505, L500.2500 ####[facility] [address] [place], [address] GFR/1.73 sq M.predicted among non-blacks MDRD (S/P/Bld) [Vol rate/Area] 44 mL/min/{1.73_m2} Low >60 [facility] Comment on above: Order Comment: SEND CRE TO Result Comment: mL/m in/1.73m2 CKD-EPI Creatinine Equation (2020) Performed By: #### L 501.5200, L503.7505, L500.2500 ####[facility] [address] [place], [address] Glucose [Mass/Vol] 98 mg/dL Normal 70-99 [facility] Comment on above: Order Comment: SEND CRE TO Performed By: #### L 501.5200, L503.7505, L500.2500 ####[facility] [facility] [address] [place], [address] Potassium [Moles/Vol] 4.1 mmol/L Normal 3.3-5.1 [facility] Comment on above: Order Comment: SEND CRE TO Performed By: #### L 501.5200, L503.7505, L500.2500 ####[facility] [address] [place], [address] Sodium [Moles/Vol] 138 mmol/L Normal 133-145 [facility] Comment on above: Order Comment: SEND CRE TO Performed By: #### L 501.5200, L503.7505, L500.2500 ####[facility] [address] [place], [address] Urea nitrogen [Mass/Vol] 41 mg/dL High 4-19 [facility] Comment on above: Order Comment: SEND CRE TO Performed By: #### L 501.5200, L503.7505, L500.2500 ####[facility] [address] [place], [address] Carbon dioxide, total [Moles /volume] in Central venous bloodOrdered By: Mike Jay on 05-10-2025 CO2 [Moles/Vol] 26.1 mmol/L 21.0-32.0 [facility] Cardiology Visit Reporton Cardiology Visit Report [facility] [address] [place] [address] OFFICE VISIT Date of Service: 05/10/25 MR#: [id number] Acct: [id number] Name: LEANA CAMEJO Rep #: [id number] : 1940 Provider: SHELLIE calvert Age/Sex: 85/M Location: [facility] Status: Signed HPI HPI History of Present [...] room air Intake Visit Reasons: FU VISIT Receiving Clerk Required: No Accompanied by: Self Is patient in pain?: No Allergies lisinopril Allergy (Intermediate, Verified 05/10/25 08:10) Rash atorvastatin calcium (From Lipitor) Allergy (Verified 05/10/25 08:10) Other clonidine Allergy (Verified 05/10/25 08:10) Unknown rosuvastatin calcium (From Crestor) Allergy (Verified 05/10/25 08:10) Other Csdbyya-PMO-XqJ Reductase Inhibitor (Nhtrkad-Phj-Twi Reductase Inhibitor) Allergy (Verified 05/10/25 08:10) Other [...] History Father (more content not included)... Normal [facility] Chloride assayOrdered By: Keily Jay on 05-10-2025 Chloride [Moles/Vol] 101 mmol/L 98-108 [facility] Glomerular filtration rate ( GFR) estimation/1.73 sq m using serum, plasma, or whole bOrdered By: Mike Jay on 05-10-2025 GFR/1.73 sq M.predicted among non-blacks MDRD (S/P/Bld) [Vol rate/Area] 44 mL/min/{1.73_m2} Low >60 [facility] Comment on above: mL/min/1.73m2 CKD-EP I Creatinine Equation (2020) Magnesiumon 05-10-2025 Magnesium [Mass/Vol] 2.3 mg/dL High 1.5-2.2 [facility] Comment on above: Order Comment: SEND CRE TO Performed By: #### L 501.5200, L503.7505, L500.2500 ####[facility] [address] [place], [place], [address] Magnesium measurement (mass/ volume)Ordered By: Mike Jay on 05-10-2025 Magnesium (Unsp spec) [Mass/Vol] 2.3 mg/dL High 1.5-2.2 [facility] Natriuretic peptide.B prohor mani N-Terminal [Mass/volume] in Serum or PlasmaOrdered By: Mike Jay on 05-10-2025 Natriuretic peptide.B prohormone N-Terminal [Mass/Vol] 5468 pg/mL High <1800 [facility] Comment on above: Heart Failure Unlike ly: < 300 pg/mLHeart Failure Likely< 50 Years: > 450 pg/mL50-75 Years: > 900 pg/mL>75 Years: > 1800 pg/mL Potassium measurement (mass/ volume)Ordered By: Mike Jay on 05-10-2025 Potassium (Unsp spec) [Mass/Vol] 4.1 mmol/L 3.3-5.1 [facility] Pro- Brain NATRIURETIC PEPTI [place] 05-10-2025 Natriuretic peptide B (Bld) [Mass/Vol] 5468 pg/mL High <=1800 [facility] Comment on above: Order Comment: SEND CRE TO Result Comment: Hear t Failure Unlikely: < 300 pg/mL Heart Failure Likely < 50 Years: > 450 pg/mL 50-75 Years: > 900 pg/mL >75 Years: > 1800 pg/mL Performed By: #### L 501.5200, L503.7505, L500.2500 ####[facility] [address] [place], [address] Serum Creatinine AND GFRon 0 05-10-2025 CREAT,SERUM Normal 0.70-1.20 [facility] Comment on above: Result Comment: OVER LAPPING TEST Performed By: #### L 501.2450, L100.0100, BTS, L500.4050 #### [facility] [address] [place], [address] eGFR Normal >60 [facility] Comment on above: Result Comment: OVER LAPPING TEST Performed By: #### L 501.2450, L100.0100, BTS, L500.4050 #### [facility] [address] [place], [address] Serum creatinine measurement (mass/volume)Ordered By: Mike Jay on 05-10-2025 Creatinine [Mass/Vol] 1.53 mg/dL High 0.70-1.20 [facility] Serum glucose measurement (m ass/volume)Ordered By: Mike Jay on 05-10-2025 Glucose [Mass/Vol] 98 mg/dL 70-99 [facility] Serum or plasma calcium jossie urement (mass/volume)Ordered By: Mike Jay on 05-10-2025 Calcium [Mass/Vol] 9.1 mg/dL 7.6-11.0 [facility] Serum or plasma urea nitroge n measurement (mass/volume)Ordered By: Mike Jay on 05-10-2025 Urea nitrogen [Mass/Vol] 41 mg/dL High 4-19 [facility] Sodium levelOrdered By: Mike Jay on 05-10-2025 Sodium [Moles/Vol] 138 mmol/L 133-145 [facility] CTA Abd/Pelvis W/WO Contrast on 04-30-2025 CTA Abd/Pelvis W/WO Contrast [facility] [address] [place] [address] CTA Abd/Pelvis W/WO Contrast MR#: [id number] Acct: [id number] Name: LEANA CAMEJO Rep #: [id number] : 1940 M 85 From: Jw leo MD PCP: Dr. Dallas Reed MD Status: REG CLI Study: CTA Abd/Pelvis W/WO Contrast Date of Exam: 08/14 Exam# [id number] Ordering Dr: Dustin Hawk MD PROCEDURE: CTA [...] abdominal aorta. 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 The patient is status post endoluminal stent grafting of the [place] abdominal aortic aneurysm with the proximal tip [...] side. Questionable localized contrast retention Reading Location: [place] [address] CC: Dr. Dustin Hawk MD; Dr. Dallas Reed MD Whizzer Hand: Signed Normal [facility] MR/BMS.BVSon 04-18-2025 MR/BMS.BVS [facility] [address] [place] [address]. [address] [place] [address] OFFICE VISIT Date of Service: 04/18/25 MR#: [id number] Acct: [id number] Name: LEANA CAMEJO Rep #: [id number] : 1940 Provider: Dr. Dustin Hawk MD Age/Sex: 85/M Location: [facility] Status: Signed Intake Vital Signs 02/14/25 09:53 [...] (From Crestor) Allergy (Verified 04/18/25 16:29) Other Pqolich-LOT-OaK Reductase Inhibitor (Hicqwip-Qmo-Nnx Reductase Inhibitor) Allergy (Verified 07/30/25 16:29) Other [...] without success. He has since gone to [facility] where they were able to successfully coil what looks like aneurysm sac/pair lumbar arteries and MUNDO. He tolerated the procedure well with no access site concerns. ROS General General: Yes fatigue and weakness; No weight change, appetite, colon cancer or breast cancer (more content not included)... [facility] CNPTOUTREACHon 03-20-2025 [facility] 36on 03-19-2025 36 Spoke with patient t [...] would like to have this done at [facility] as it is much closer to home. I stated we will fax order to [place] and work to schedule imaging there. Patient expressed understanding and thanked me for calling. Normal [facility] BASIC METABOLIC PANELon 06-2 Anion gap [Moles/Vol] 8 mmol/L Normal 3-13 [facility] Comment on above: Performed By: #### L AB15 #### Bistro Server: GUIDO JACOB ([id number]) [facility]) [address] [place] [address] Calcium [Mass/Vol] 9.1 mg/dL Normal 8.8-10.0 [facility] Comment on above: Performed By: #### L AB15 #### [employer] Server: GUIDO JACOB ([id number]) [facility]) [address] [place] [address] Chloride [Moles/Vol] 103 mmol/L Normal 98-107 [facility] Comment on above: Performed By: #### L AB15 #### [employer] Server: GUIDO JACOB ([id number]) [facility] ([facility]) [address] [place] [address] CO2 [Moles/Vol] 26 mmol/L Normal 23-31 [facility] Comment on above: Performed By: #### L AB15 #### [employer] Server: GUIDO JACBO ([id number]) [facility]) [address] [place] [address] Creatinine [Mass/Vol] 1.72 mg/dL High 0.72-1.25 [facility] Comment on above: Performed By: #### L AB15 #### [employer] Server: GUIDO JACOB ([id number]) [facility]) [address] [place] [address] GLOMERULAR FILTRATION RATE ML/MIN/1.73 SQ M.PREDICTED 38.5 mL/min/1.73m*2 Low >60.0 [facility] Comment on above: Result Comment: Calc ulation based on the Chronic Kidney Disease Epidemiology Collaboration (CKD-EPI) equation refit without adjustment for race Performed By: #### L AB15 #### [employer] Server: GUIDO JACOB ([id number]) [facility] ([facility]) [address] [place] [address] Glucose [Mass/Vol] 108 mg/dL Normal 82-115 [facility] Comment on above: Performed By: #### L AB15 #### [employer] Server: GUIDO JACOB ([id number]) [facility] ([facility]) [address] [place] [address] Potassium [Moles/Vol] 4.0 mmol/L Normal 3.5-5.1 [facility] Comment on above: Result Comment: [facility] potassium values may be up to 0.5 mmol/L lower than serum values. Performed By: #### L AB15 #### [employer] Server: GUIDO JACOB ([id number]) [facility] ([facility]) [address] [place] [address] Sodium [Moles/Vol] 137 mmol/L Normal 136-145 [facility] Comment on above: Performed By: #### L AB15 #### [employer] Server: GUIDO JACOB ([id number]) [facility] ([facility]) [address] [place] [address] Urea nitrogen [Mass/Vol] 49 mg/dL High 9-23 [facility] Comment on above: Performed By: #### L AB15 #### [employer] Server: GUIDO JACOB ([id number]) [facility] ([facility]) [address] [place] [address] Basic metabolic 1998 panelon 03-16-2025 Anion gap [Moles/Vol] 8 mmol/L 3 - 13 mmol/L [facility] Calcium [Mass/Vol] 9.1 mg/dL 8.8 - 10. 0 mg/dL [facility] Chloride [Moles/Vol] 103 mmol/L 98 - 10 7 mmol/L [facility] CO2 [Moles/Vol] 26 mmol/L 23 - 31 mmol/L [facility] Creatinine [Mass/Vol] 1.72 mg/dL High 0.72 - 1.25 mg/dL [facility] GFR/1.73 sq M.predicted (S/P/Bld) [Vol rate/Area] 38.5 mL/min Low - PINF [facility] Comment on above: Calculation based on the Chronic Kidney Disease Epidemiology Collaboration (CKD-EPI) equation refit without adjustment for race Glucose [Mass/Vol] 108 mg/dL 82 - 115 mg/dL [facility] Interpretation and review of laboratory results Abnormal [facility] Potassium [Moles/Vol] 4 mmol/L 3.5 - 5.1 mmol/L [facility] Comment on above: Plasma potassium cynthia ues may be up to 0.5 mmol/L lower than serum values. Sodium [Moles/Vol] 137 mmol/L 136 - 145 mmol/L [facility] Urea nitrogen [Mass/Vol] 49 mg/dL High 9 - 23 mg/dL [facility] CBC (HEMOGRAM)on 03-16-2025 Erythrocyte distribution width (RBC) [Ratio] 14.9 % Normal 11.5-15.0 [facility] Comment on above: Performed By: #### L AB294 #### B[employer] Server: GUIDO JACOB ([id number]) [facility]) [address] [place] [address] Hematocrit (Bld) [Volume fraction] 31.7 % Low 40.0-52.0 [facility] Comment on above: Performed By: #### L AB294 #### [employer] Server: GUIDO JACOB ([id number]) [facility]) [address] [place] [address] Hemoglobin (Bld) [Mass/Vol] 10.2 g/dL Low 13.0-18.0 [facility] Comment on above: Performed By: #### L AB294 #### [employer] Server: GUIDO JACOB ([id number]) [facility] ([facility]) [address] [place] [address] [place] IPF 3 Normal [facility] Comment on above: Performed By: #### L AB294 #### [employer] Server: GUIDO JACOB ([id number]) [facility] ([facility]) [address] [place] [address] MCH (RBC) [Entitic mass] 29.9 pg Normal 26.0-34.0 [facility] Comment on above: Performed By: #### L AB294 #### [employer] Server: GUIDO JACOB ([id number]) [facility]) [address] [place] [address] MCHC 32.2 % Normal 30.5-36.0 [facility] Comment on above: Performed By: #### L AB294 #### [employer] Server: GUIDO JACOB ([id number]) [facility] ([facility]) [address] [place] [address] MCV (RBC) [Entitic vol] 93.0 fL Normal 77.0-99.0 [facility] Comment on above: Performed By: #### L AB294 #### [employer] Server: GUIDO JACOB ([id number]) [facility]) [address] [place] [address] Platelet mean volume (Bld) [Entitic vol] 11.0 fL Normal 9.0-12.7 [facility] Comment on above: Performed By: #### L AB294 #### [employer] Server: GUIDO JACOB ([id number]) [facility] ([facility]) [address] [place] [address] Platelets (Bld) [#/Vol] 87 10*3/uL Low 140-440 [facility] Comment on above: Performed By: #### L AB294 #### B[employer] Server: GUIDO JACOB ([id number]) [facility]) [address] [place] [address] RBC (Bld) [#/Vol] 3.41 10*6/uL Low 4.40-5.90 [facility] Comment on above: Performed By: #### L AB294 #### B[employer] Server: GUIDO JACOB ([id number]) [facility]) [address] [place] [address] WBC (Bld) [#/Vol] 4.4 10*3/uL Normal 3.6-10.7 [facility] Comment on above: Performed By: #### L AB294 #### [employer] Server: GUIDO JACOB ([id number]) [facility] ([facility]) [address] [place] [address] CBC panel Auto (Bld)Ordered By: Lourdes Boothe on 03-16-2025 Erythrocyte distribution width (RBC) [Ratio] 14.9 % 11.5 - 15.0 % [facility] Hematocrit (Bld) [Volume fraction] 31.7 % Low 40.0 - 52.0 % [facility] Hemoglobin (Bld) [Mass/Vol] 10.2 g/dL Low 13.0 - 18.0 g/dL [facility] Interpretation and review of laboratory results Abnormal [facility] IPF 3 [facility] MCH (RBC) [Entitic mass] 29.9 pg 26.0 - 34.0 pg [facility] MCHC (RBC) [Mass/Vol] 32.2 % 30.5 - 36.0 % [facility] MCV (RBC) [Entitic vol] 93 fL 77.0 - 99.0 fL [facility] Platelet mean volume (Bld) [Entitic vol] 11 fL 9.0 - 12.7 fL [facility] Platelets (Bld) [#/Vol] 87 10*3/uL Low 140 - 440 10*3/uL [facility] RBC (Bld) [#/Vol] 3.41 10*6/uL Low 4.40 - 5.9 0 10*6/uL [facility] WBC (Bld) [#/Vol] 4.4 10*3/uL 3.6 - 10.7 10*3/uL [facility] Laboratory - Coagulationon 0 03-16-2025 PT Coag (Bld) [Time] 12.1 s High 9.0 - 12.0 s [facility] Nursing Noteon 03-16-2025 Nursing Note Hemostasis achieved Normal [facility] Nursing Note Third coil deployed Normal [facility] Nursing Note Second coil deployed Normal [facility] Nursing Note First coil deployed Normal [facility] Nursing Note Patient arrived from IR prep 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 Dr. Bobo in to speak with the patient regarding procedure, and consent was obtained. Patient's lab values and allergies were reviewed. Patient was placed supine on exam table, prepped and draped in sterile fashion. Telemetry monitors were placed. Normal [facility] PROTHROMBIN TIMEon INR Coag (PPP) [Relative time] 1.1 {INR} Normal 0.9-1.1 [facility] Comment on above: Result Comment: Irving [...] Infarction Performed By: #### L AB320 #### [employer] Server: GUIDO JACOB ([id number]) [facility] ([facility]) [address] [place] [address] PT Coag (PPP) [Time] 12.1 s High 9.0-12.0 [facility] Comment on above: Performed By: #### Yong AB320 #### Bist[employer] Server: GUIDO JACOB ([id number]) [facility] ([facility]) [address] [place] [address] [place] PT Coag (Bld) [Time]on 03-16 INR Coag (PPP) [Relative time] 1.1 {INR} 0.9 - 1.1 [facility] Comment on above: Recommended Anticoag ulant Therapy: [...] Interpretation and review of laboratory results Abnormal [facility] CNOVon 03-12-2025 CNOV Normal [facility] T4 Free SerPl-mCncon 025 Free T4 [Mass/Vol] 1.1 ng/dL Normal 0.9-1.7 [facility] Comment on above: Order Comment: Speci men Type: BLOOD SPECIMENOrdering Facility: [facility] Address: [address] [place], [place] [address] [address] Performed By: #### 3 024-7, 3016-3 ####[facility] LABCLIA [id number] [place] [id number] [place] TSH SerPl-aCncon 03-12-2025 TSH Qn 11.300 m[IU]/L High 0.270-4.200 [facility] Comment on above: Order Comment: Speci men Type: BLOOD SPECIMENOrdering Facility: [facility] Address: [address] [place], [place] [address] [address] Performed By: #### 3 024-7, 6-3 ####[facility] LABCLIA [id number] [place] [address] [place] CNPTOUTREACHon 03-02-2025 CNPTOUTREACH Normal [facility] MR/BMS.BVSon 02-27-2025 MR/BMS.BVS [facility] [address] [place] [address] OFFICE VISIT Date of Service: 02/27/25 MR#: [id number] Acct: [id number] Name: LEANA CAMEJO Rep #: [id number] : 1940 Provider: CHRIS Orellana Age/Sex: 85/M Location: [facility] Status: Signed Intake Vital Signs 01/12/25 10:30 [...] (From Crestor) Allergy (Verified 02/27/25 14:49) Other Mthqlnj-VQA-BrQ Reductase Inhibitor (Becmtra-Pza-Xzf Reductase Inhibitor) Allergy (Verified 02/27/25 14:49) Other [...] is res (more content not included)... Normal [facility] CNPTOUTREACHon 02-26-2025 CNPTOUTREA Normal [facility] CNPTOUTREACHon 02-19-2025 CNPTOUTREA Normal [facility] Anion gap in Serum or Plasma Ordered By: Dustin Hawk on 02-14-2025 Anion gap [Moles/Vol] 12 mmol/L 5-15 [facility] BUN/creatinine ratioOrdered By: Dustin Hawk on 02-14-2025 Urea nitrogen/Creatinine [Mass ratio] 28.6 mg/mg High 10-20 [facility] Basic Metabolic Profile (BMP )on 02-14-2025 BUN/CRE 28.6 RATIO High 10- [facility] Comment on above: Performed By: #### L 500.2500, L100.0500 ####[facility] [address] [place], [address] Calcium [Mass/Vol] 9.5 mg/dL Normal 7.6-11.0 [facility] Comment on above: Performed By: #### L 500.2500, L100.0500 ####[facility] [address] [place], [address] Chloride [Moles/Vol] 102 mmol/L Normal 98-108 [facility] Comment on above: Performed By: #### L 500.2500, L100.0500 ####[facility] [address] [place], [address] CO2 [Moles/Vol] 25.1 mmol/L Normal 21.0-32.0 [facility] Comment on above: Performed By: #### L 500.2500, L100.0500 ####[facility] [address] [place], [address] Creatinine [Mass/Vol] 1.73 mg/dL High 0.70-1.20 [facility] Comment on above: Performed By: #### L 500.2500, L100.0500 ####[facility] [address] [place], [address] ECRCL 29.64 ml/min Low 50-250 [facility] Comment on above: Performed By: #### L 500.2500, L100.0500 ####[facility] [address] [place], [address] GAP 12 Normal 5-15 [facility] Comment on above: Performed By: #### L 500.2500, L100.0500 ####[facility] [address] [place], [address] GFR/1.73 sq M.predicted among non-blacks MDRD (S/P/Bld) [Vol rate/Area] 38 mL/min/{1.73_m2} Low >60 [facility] Comment on above: Result Comment: mL/m in/1.73m2 CKD-EPI Creatinine Equation (2020) Performed By: #### L 500.2500, L100.0500 ####[facility] [address] [place], [address] Glucose [Mass/Vol] 110 mg/dL High 70-99 [facility] Comment on above: Performed By: #### L 500.2500, L100.0500 ####[facility] [address] [place], [address] Potassium [Moles/Vol] 4.5 mmol/L Normal 3.3-5.1 [facility] Comment on above: Performed By: #### L 500.2500, L100.0500 ####[facility] [address] [place], [address] Sodium [Moles/Vol] 139 mmol/L Normal 133-145 [facility] Comment on above: Performed By: #### L 500.2500, L100.0500 ####[facility] [address] [place], [address] Urea nitrogen [Mass/Vol] 50 mg/dL High 4-19 [facility] Comment on above: Performed By: #### L 500.2500, L100.0500 ####[facility] [address] [place], [address] CBC-Complete Blood Cnt No Patricia ffon 02-14-2025 Erythrocyte distribution width (RBC) [Ratio] 15.0 % High 11.6-14.6 [facility] Comment on above: Performed By: #### L 500.2500, L100.0500 ####[facility] [address] [place], [address] Hematocrit (Bld) [Volume fraction] 35.2 % Low 40-54 [facility] Comment on above: Performed By: #### L 500.2500, L100.0500 ####[facility] [address] [place], [address] Hemoglobin (Bld) [Mass/Vol] 11.6 g/dL Low 13.0-16.5 [facility] Comment on above: Performed By: #### L 500.2500, L100.0500 ####[facility] [address] [place], [address] MCH (RBC) [Entitic mass] 30.6 pg Normal 27.0-32.0 [facility] Comment on above: Performed By: #### L 500.2500, L100.0500 ####[facility] [address] [place], [address] MCHC (RBC) [Mass/Vol] 33.0 g/dL Normal 32-36 [facility] Comment on above: Performed By: #### L 500.2500, L100.0500 ####[facility] [address] [place], [address] MCV (RBC) [Entitic vol] 92.9 fL Normal 80-94 [facility] Comment on above: Performed By: #### L 500.2500, L100.0500 ####[facility] [address] [place], [address] Platelet mean volume (Bld) [Entitic vol] 11.1 fL Normal 6.2-12.0 [facility] Comment on above: Performed By: #### L 500.2500, L100.0500 ####[facility] [address] [place], [address] Platelets (Bld) [#/Vol] 113 10*3/uL Low 150-450 [facility] Comment on above: Performed By: #### L 500.2500, L100.0500 ####[facility] [address] [place], [address] RBC (Bld) [#/Vol] 3.79 10*6/uL Low 4.6-6.2 [facility] Comment on above: Performed By: #### L 500.2500, L100.0500 ####[facility] [address] [place], [address] RDW SD 51.3 fl High 35.1-43.9 [facility] Comment on above: Performed By: #### L 500.2500, L100.0500 ####[facility] [address] [place], [address] WBC (Bld) [#/Vol] 6.0 10*3/uL Normal 4.4-11.0 [facility] Comment on above: Performed By: #### L 500.2500, L100.0500 ####[facility] [address] [place], [address] Carbon dioxide, total [Moles /volume] in Central venous bloodOrdered By: Dustin Hawk on 02-14-2025 CO2 [Moles/Vol] 25.1 mmol/L 21.0-32.0 [facility] Chloride assayOrdered By: Johnathan Hawk on 02-14-2025 Chloride [Moles/Vol] 102 mmol/L 98-108 [facility] Erythrocyte distribution wid th ratioOrdered By: Dustin Hawk on 02-14-2025 Erythrocyte distribution width (RBC) [Ratio] 15.0 % High 11.6-14.6 [facility] Erythrocyte distribution wid th standard deviationOrdered By: Dustin Hawk on 02-14-2025 Erythrocyte distribution width (RBC) [Ratio] 51.3 fl High 35.1-43.9 [facility] Glomerular filtration rate ( GFR) estimation/1.73 sq m using serum, plasma, or whole bOrdered By: Dustincatracho Hawk on 02-14-2025 GFR/1.73 sq M.predicted among non-blacks MDRD (S/P/Bld) [Vol rate/Area] 38 mL/min/{1.73_m2} Low >60 [facility] Comment on above: mL/min/1.73m2 CKD-EP I Creatinine Equation (2020) Hematocrit Auto (Bld) [Volum e fraction]Ordered By: Dustin Hawk on 02-14-2025 Hematocrit (Bld) [Volume fraction] 35.2 % Low 40-54 [facility] Hemoglobin measurementOrdere d By: Dustin Hawk on 02-14-2025 Hemoglobin (Bld) [Mass/Vol] 11.6 g/dL Low 13.0-16.5 [facility] MCV (mean corpuscular volume ) determinationOrdered By: [facility] Waldo on 02-14-2025 MCV (RBC) [Entitic vol] 92.9 fL 80-94 [facility] Mean corpuscular hemoglobin (MCH) determinationOrdered By: [facility]do on 02-14-2025 MCH (RBC) [Entitic mass] 30.6 pg 27.0-32.0 [facility] Mean corpuscular hemoglobin concentration (MCHC) determinationOrdered By: Dustincatracho Hawk on 02-14-2025 MCHC (RBC) [Mass/Vol] 33.0 g/dL 32-36 [facility] Mean platelet volume determi nationOrdered By: Dustincatracho Hawk on 02-14-2025 Platelet mean volume (Bld) [Entitic vol] 11.1 fL 6.2-12.0 [facility] Operative Reporton Operative Report [facility] Medical Records Department [address] [place] [address] Operative Report 02/14/25 1613 MR#: [id number] Acct: [id number] Name: LEANA CAMEJO Rep #: [id number] : 1940 85 From: Dustin Hawk MD PCP: Dr. 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 Through this verapamil, nitro, and [...] micropuncture sheath exchanged for a short 6 [place]i sheath. Through a 6 Kuwaiti sheath Bentson wire was advanced into the [...] was then readvanced and the short 6 Kuwaiti sheath in flush catheter exchanged for a 6 [place]i Ansell 2 sheath and utilizing this along [...] efforts were warranted so the long 6 Kuwaiti sheath was exchanged for a short 6 [place]i sheath and a minx closure device deployed [...] MD; Dr. Dallas Reed MD Signed Normal [facility] Platelet countOrdered By: Johnathan Hawk on 02-14-2025 Platelets (Bld) [#/Vol] 113 10*3/uL Low 150-450 [facility] Potassium measurement (mass/ volume)Ordered By: Dustin Hawk on 02-14-2025 Potassium (Unsp spec) [Mass/Vol] 4.5 mmol/L 3.3-5.1 [facility] RBC Auto (Bld) [#/Vol]Ordere d By: Dustin Hawk on 02-14-2025 RBC (Bld) [#/Vol] 3.79 10*6/uL Low 4.6-6.2 [facility] Serum creatinine measurement (mass/volume)Ordered By: Dustin Waldo on 02-14-2025 Creatinine [Mass/Vol] 1.73 mg/dL High 0.70-1.20 [facility] Serum glucose measurement (m ass/volume)Ordered By: Dustin Fillmore on 02-14-2025 Glucose [Mass/Vol] 110 mg/dL High 70-99 [facility] Serum or plasma calcium jossie urement (mass/volume)Ordered By: Dustin Waldo on 02-14-2025 Calcium [Mass/Vol] 9.5 mg/dL 7.6-11.0 [facility] Serum or plasma urea nitroge n measurement (mass/volume)Ordered By: Dustin Fillmore on 02-14-2025 Urea nitrogen [Mass/Vol] 50 mg/dL High 4-19 [facility] Sodium levelOrdered By: Dustin Waldo on 02-14-2025 Sodium [Moles/Vol] 139 mmol/L 133-145 [facility] White blood cell (WBC) count Ordered By: Dustin Kelleyey on 02-14-2025 WBC (Bld) [#/Vol] 6.0 10*3/uL 4.4-11.0 [facility] CNPTOUTREACHon 02-01-2025 CNPTOUTREACH Normal [facility] CTA Abd/Pelvis W/WO Contrast on 01-18-2025 CTA Abd/Pelvis W/WO Contrast [facility] Imaging Services [address] [place] [id number] CTA Abd/Pelvis W/WO Contrast MR#: [id number] Acct: [id number] Name: LEANA CAMEJO Rep #: [id number] : 1940 M 85 From: Yaneth Alexander nd, MD PCP: Dr. Dallas Reed MD Status: REG CLI Study: CTA Abd/Pelvis W/WO Contrast Date of Exam: 10/14 Exam# [id number] Ordering Dr: Carine Noble PROCEDURE: CTA ABD/PELVIS [...] recommended. 3. Persistent severe splenomegaly. Reading Location: [facility] CC: CHRIS Orellana; Dr. Dallas Reed MD Whizzer Hand: Signed Normal [facility] CNPTOUTREACHon 01-17-2025 CNPTOUTREACH Normal [facility] Abdomen/Pelvis W IV Cont ONL Yon 01-12-2025 Abdomen/Pelvis W IV Cont ONLY [facility] Imaging Services [address] [place] [address] Abdomen/Pelvis W IV Cont ONLY MR#: [id number] Acct: [id number] Name: LEANA CAMEJO Rep #: [id number] : 1940 M 85 From: Jw leo MD PCP: Dr. Dallas Reed MD Status: REG ER Study: Abdomen/Pelvis W IV Cont ONLY Date of Exam: Exam# [id number] Ordering Dr: Hernandez King MD PROCEDURE: ABDOMEN/PELVIS [...] Liver: Diffuse fatty infiltration. Gallbladder: Unremarkable. Spleen: Pxagvswo-wp-bdwmrr degree of splenomegaly. This is unchanged. Pancreas: [...] of the examination is unchanged. Reading Location: [place] [address] CC: Dr. Hernandez King MD; Dr. Dallas Reed MD Whizzer Hand: Signed Normal [facility] Absolute lymphocyte countOrd ered By: Hernandez King on 01-12-2025 Lymphocytes Auto (Unsp spec) [#/Vol] 1.16 10*3/uL 0.83-4.51 [facility] Absolute neutrophil countOrd ered By: Hernandez King on 01-12-2025 Neutrophils (Bld) [#/Vol] 3.3 10*3/uL 2.0-7.7 [facility] Anion gap in Serum or Plasma Ordered By: Hernandez King on 01-12-2025 Anion gap [Moles/Vol] 11 mmol/L 5-15 [facility] Automated lymphocyte count a s percentage of total leukocytesOrdered By: Hernandez King on 01-12-2025 Lymphocytes/100 WBC Auto (Unsp spec) 22.3 % 19-41 [facility] BUN/creatinine ratioOrdered By: Hernandez King on 01-12-2025 Urea nitrogen/Creatinine [Mass ratio] 24.7 mg/mg High 10-20 [facility] Basic Metabolic Profile (BMP )on 01-12-2025 BUN/CRE 24.7 RATIO High - [facility] Comment on above: Performed By: #### L 100.0100, L500.2500 ####[facility] [address] [place], [address] Calcium [Mass/Vol] 8.8 mg/dL Normal 7.6-11.0 [facility] Comment on above: Performed By: #### L 100.0100, L500.2500 ####[facility] [address] [place], [address] Chloride [Moles/Vol] 102 mmol/L Normal 98-108 [facility] Comment on above: Performed By: #### L 100.0100, L500.2500 ####[facility] [address] [place], [address] CO2 [Moles/Vol] 24.7 mmol/L Normal 21.0-32.0 [facility] Comment on above: Performed By: #### L 100.0100, L500.2500 ####[facility] [address] [place], [address] Creatinine [Mass/Vol] 1.54 mg/dL High 0.70-1.20 [facility] Comment on above: Performed By: #### L 100.0100, L500.2500 ####[facility] [address] [place], [address] ECRCL 33.25 ml/min Low 50-250 [facility] Comment on above: Performed By: #### L 100.0100, L500.2500 ####[facility] [address] [place], [address] GAP 11 Normal 5-15 [facility] Comment on above: Performed By: #### L 100.0100, L500.2500 ####[facility] [address] [place], [address] GFR/1.73 sq M.predicted among non-blacks MDRD (S/P/Bld) [Vol rate/Area] 44 mL/min/{1.73_m2} Low >60 [facility] Comment on above: Result Comment: mL/m in/1.73m2 CKD-EPI Creatinine Equation (2020) Performed By: #### L 100.0100, L500.2500 ####[facility] [address] [place], [address] Glucose [Mass/Vol] 93 mg/dL Normal 70-99 [facility] Comment on above: Performed By: #### L 100.0100, L500.2500 ####[facility] [address] [place], [address] Potassium [Moles/Vol] 3.9 mmol/L Normal 3.3-5.1 [facility] Comment on above: Performed By: #### L 100.0100, L500.2500 ####[facility] [address] [place], [address] Sodium [Moles/Vol] 138 mmol/L Normal 133-145 [facility] Comment on above: Performed By: #### L 100.0100, L500.2500 ####[facility] [address] [place], [address] Urea nitrogen [Mass/Vol] 38 mg/dL High 4-19 [facility] Comment on above: Performed By: #### L 100.0100, L500.2500 ####[facility] [address] [place], [address] Basophil percentageOrdered B y: Hernandez King on 01-12-2025 Basophils/100 WBC (Bld) 0.8 % 0-1 [facility] CBC W/Diff, Automatedon 12-20 Absolute Lymph 1.16 X10 3/uL Normal 0.83-4.51 [facility] Comment on above: Performed By: #### L 100.0100, L500.2500 ####[facility] [address] [place], [address] Absolute Neut 3.3 X10 3/uL Normal 2.0-7.7 [facility] Comment on above: Performed By: #### L 100.0100, L500.2500 ####[facility] [address] [place], [address] Basophils/100 WBC (Bld) 0.8 % Normal 0-1 [facility] Comment on above: Performed By: #### L 100.0100, L500.2500 ####[facility] [address] [place], [address] Eosinophils/100 WBC (Bld) 3.5 % Normal 0-5 [facility] Comment on above: Performed By: #### L 100.0100, L500.2500 ####[facility] [address] [place], [address] Erythrocyte distribution width (RBC) [Ratio] 14.8 % High 11.6-14.6 [facility] Comment on above: Performed By: #### L 100.0100, L500.2500 ####[facility] [address] [place], [address] Hematocrit (Bld) [Volume fraction] 35.6 % Low 40-54 [facility] Comment on above: Performed By: #### L 100.0100, L500.2500 ####[facility] [address] [place], [address] Hemoglobin (Bld) [Mass/Vol] 11.5 g/dL Low 13.0-16.5 [facility] Comment on above: Performed By: #### L 100.0100, L500.2500 ####[facility] [address] [place], [address] IG% 0.400 Normal 0.0-0.9 [facility] Comment on above: Result Comment: IG% - Immature Granulocytes (promyelocytes, myelocytes and metamyelocytes) > 1% indicates that a LEFT SHIFT is Present. Performed By: #### L 100.0100, L500.2500 ####[facility] [address] [place], [address] Lymphocytes/100 WBC (Bld) 22.3 % Normal 19-41 [facility] Comment on above: Performed By: #### L 100.0100, L500.2500 ####[facility] [address] [place], [address] MCH (RBC) [Entitic mass] 29.6 pg Normal 27.0-32.0 [facility] Comment on above: Performed By: #### L 100.0100, L500.2500 ####[facility] [address] [place], [address] MCHC (RBC) [Mass/Vol] 32.3 g/dL Normal 32-36 [facility] Comment on above: Performed By: #### L 100.0100, L500.2500 ####[facility] [address] [place], [address] MCV (RBC) [Entitic vol] 91.8 fL Normal 80-94 [facility] Comment on above: Performed By: #### L 100.0100, L500.2500 ####[facility] [address] [place], [address] Monocytes/100 WBC (Bld) 9.8 % Normal 0-10 [facility] Comment on above: Performed By: #### L 100.0100, L500.2500 ####[facility] [address] [place], [address] Neutrophils/100 WBC (Bld) 63.2 % Normal 47-70 [facility] Comment on above: Performed By: #### L 100.0100, L500.2500 ####[facility] [address] [place], [address] Nucleated RBC (Bld) [#/Vol] 0 10*3/uL Normal 0-5 [facility] Comment on above: Performed By: #### L 100.0100, L500.2500 ####[facility] [address] [place], [address] Platelet mean volume (Bld) [Entitic vol] 10.8 fL Normal 6.2-12.0 [facility] Comment on above: Performed By: #### L 100.0100, L500.2500 ####[facility] [address] [place], [address] Platelets (Bld) [#/Vol] 104 10*3/uL Low 150-450 [facility] Comment on above: Performed By: #### L 100.0100, L500.2500 ####[facility] [address] [place], [address] RBC (Bld) [#/Vol] 3.88 10*6/uL Low 4.6-6.2 [facility] Comment on above: Performed By: #### L 100.0100, L500.2500 ####[facility] [address] [place], [address] RDW SD 49.7 fl High 35.1-43.9 [facility] Comment on above: Performed By: #### L 100.0100, L500.2500 ####[facility] [address] [place], [address] WBC (Bld) [#/Vol] 5.2 10*3/uL Normal 4.4-11.0 [facility] Comment on above: Performed By: #### L 100.0100, L500.2500 ####[facility] [address], [address] Carbon dioxide, total [Moles /volume] in Central venous bloodOrdered By: Hernandez King on 01-12-2025 CO2 [Moles/Vol] 24.7 mmol/L 21.0-32.0 [facility] Chloride assayOrdered By: Ug o Fernando on 01-12-2025 Chloride [Moles/Vol] 102 mmol/L 98-108 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 Medical History Spigelian hernia Wears hearing aid [...] (From Allergy Other Verified 01/12/25 10:29 Crestor) Apebtwk-FPV-JgM Reductase Allergy Other Verified 01/12/25 10:29 Inhibitor (Fbbvppl-Bas-Rjh Reductase Inhibitor) Family History Father Lung ca (more content not included)... Normal [facility] Eosinophil percentageOrdered By: Hernandez King on 01-12-2025 Eosinophils/100 WBC (Bld) 3.5 % 0-5 [facility] Erythrocyte distribution wid th (RBC) [Ratio]Ordered By: Hernandez King on 01-12-2025 Erythrocyte distribution width (RBC) [Entitic vol] 49.7 fL High 35.1-43.9 [facility] Erythrocyte distribution wid th ratioOrdered By: Hernandez King on 01-12-2025 Erythrocyte distribution width (RBC) [Ratio] 14.8 % High 11.6-14.6 [facility] Erythrocyte distribution wid th standard deviationOrdered By: Hernandez King on 01-12-2025 Erythrocyte distribution width (RBC) [Ratio] 49.7 fl High 35.1-43.9 [facility] Estimation of creatinine maira aranceOrdered By: Hernandez King on 01-12-2025 Estimated Creatinine Clearance Calc 33.25 ml/min Low 50-250 [facility] GFR/1.73 sq M.predicted gabi g non-blacks MDRD (S/P/Bld) [Vol rate/Area]Ordered By: Hernandez King on 01-12-2025 Estimated GFR (MDRD) Non-Af Amer 44 Low >60 [facility] Comment on above: mL/min/1.73m2 CKD-EP I Creatinine Equation (2020) Glomerular filtration rate ( GFR) estimation/1.73 sq m using serum, plasma, or whole bOrdered By: Hernandez King on 01-12-2025 GFR/1.73 sq M.predicted among non-blacks MDRD (S/P/Bld) [Vol rate/Area] 44 mL/min/{1.73_m2} Low >60 [facility] Comment on above: mL/min/1.73m2 CKD-EP I Creatinine Equation (2020) Hematocrit Auto (Bld) [Volum e fraction]Ordered By: Hernandez King on 01-12-2025 Hematocrit (Bld) [Volume fraction] 35.6 % Low 40-54 [facility] Hemoglobin measurementOrdere d By: Hernandez King on 01-12-2025 Hemoglobin (Bld) [Mass/Vol] 11.5 g/dL Low 13.0-16.5 [facility] Immature granulocytes/100 WB C Auto (Bld)Ordered By: Hernandez King on 01-12-2025 Immature granulocytes/100 WBC (Bld) 0.400 % 0.0-0.9 [facility] Comment on above: IG% - Immature Granu locytes (promyelocytes, myelocytes and metamyelocytes) > 1% indicates that a LEFT SHIFT is Present. Lymphocytes Auto (Unsp spec) [#/Vol]Ordered By: Hernandez King on 01-12-2025 Lymphocytes (Bld) [#/Vol] 1.16 10*3/uL 0.83-4.51 [facility] Lymphocytes/100 WBC Auto (Un sp spec)Ordered By: Hernandez Mccarthyo on 01-12-2025 Lymphocytes/100 WBC (Bld) 22.3 % 19-41 [facility] MCV (mean corpuscular volume ) determinationOrdered By: Hernandez King on 01-12-2025 MCV (RBC) [Entitic vol] 91.8 fL 80-94 [facility] Mean corpuscular hemoglobin (MCH) determinationOrdered By: Hernandez King on 01-12-2025 MCH (RBC) [Entitic mass] 29.6 pg 27.0-32.0 [facility] Mean corpuscular hemoglobin concentration (MCHC) determinationOrdered By: Hernandez King on 01-12-2025 MCHC (RBC) [Mass/Vol] 32.3 g/dL 32-36 [facility] Mean platelet volume determi nationOrdered By: Hernandezsingh Mccarthyo on 01-12-2025 Platelet mean volume (Bld) [Entitic vol] 10.8 fL 6.2-12.0 [facility] Monocyte percentageOrdered B y: Hernandez King on 01-12-2025 Monocytes/100 WBC (Bld) 9.8 % 0-10 [facility] Neutrophil percentageOrdered By: Hernandez King on 01-12-2025 Neutrophils/100 WBC (Bld) 63.2 % 47-70 [facility] Nucleated red blood cell per centageOrdered By: Hernandez King on 01-12-2025 Nucleated RBC/100 WBC (Bld) [Ratio] 0 % 0-5 [facility] Platelet countOrdered By: Ug o King on 01-12-2025 Platelets (Bld) [#/Vol] 104 10*3/uL Low 150-450 [facility] Potassium (Unsp spec) [Mass/ Vol]Ordered By: Hernandez King on 01-12-2025 Potassium [Moles/Vol] 3.9 mmol/L 3.3-5.1 [facility] Potassium measurement (mass/ volume)Ordered By: Hernandez King on 01-12-2025 Potassium (Unsp spec) [Mass/Vol] 3.9 mmol/L 3.3-5.1 [facility] RBC Auto (Bld) [#/Vol]Ordere d By: [facility] on 01-12-2025 RBC (Bld) [#/Vol] 3.88 10*6/uL Low 4.6-6.2 [facility] Serum creatinine measurement (mass/volume)Ordered By: [facility] on 01-12-2025 Creatinine [Mass/Vol] 1.54 mg/dL High 0.70-1.20 [facility] Serum glucose measurement (m ass/volume)Ordered By: [facility] on 01-12-2025 Glucose [Mass/Vol] 93 mg/dL 70-99 [facility] Serum or plasma calcium jossie urement (mass/volume)Ordered By: [facility] on 01-12-2025 Calcium [Mass/Vol] 8.8 mg/dL 7.6-11.0 [facility] Serum or plasma urea nitroge n measurement (mass/volume)Ordered By: [facility] on 01-12-2025 Urea nitrogen [Mass/Vol] 38 mg/dL High 4-19 [facility] Sodium levelOrdered By: [facility] on 01-12-2025 Sodium [Moles/Vol] 138 mmol/L 133-145 [facility] White blood cell (WBC) count Ordered By: [facility] on 01-12-2025 WBC (Bld) [#/Vol] 5.2 10*3/uL 4.4-11.0 [facility] CNPTOUTREACHon 12-26-2024 CNPTOUTREACH Normal [facility] MR/BMS.Arnoldo 12-25-2024 MR/BMS.JAMES [facility] [address] [place], [place] [address] OFFICE VISIT Date of Service: 12/25/24 MR#: [id number] Acct: [id number] Name: LEANA CAMEJO Rep #: [id number] : 1940 Provider: Dr. Dustin Hawk MD Age/Sex: 84/M Location: [facility] Status: Signed Intake Vital Signs 11/28/24 17:53 [...] (From Crestor) Allergy (Verified 12/25/24 16:01) Other Olldezb-VPH-MlC Reductase Inhibitor (Fkjxrie-Tue-Wtt Reductase Inhibitor) Allergy (Verified 12/25/24 16:01) Other [...] or thin (more content not included)... Normal [facility] CNTHERAPYon 12-22-2024 CNTHERAPY Normal [facility] CNPTOUTREACHon 12-19-2024 CNPTOUTREACH Normal [facility] CNTHERAPYon 12-19-2024 CNTHERAPY Normal [facility] CNTHERAPYon 12-15-2024 CNTHERAPY Normal [facility] CNTHERAPYon 12-12-2024 CNTHERAPY Normal [facility] CNPNon 12-11-2024 CNPN Normal [facility] CNPTOUTREACHon 12-11-2024 CNPTOUTREACH Normal [facility] CNOVon 12-08-2024 CNOV Normal [facility] CNTHERAPYon 12-08-2024 CNTHERAPY Normal [facility] CNTHERAPYon 12-06-2024 CNTHERAPY Normal [facility] THERAPY NTon 12-06-2024 THERAPY NT Normal [facility] CNPTOUTREACHon 12-04-2024 CNPTOUTREACH Normal [facility] CNPNon 12-02-2024 CNPN Normal [facility] CASE MANAGEMon 12-01-2024 CASE MANAGEM Normal [facility] CBC panel Auto (Bld)on 12-01 Erythrocyte distribution width (RBC) [Ratio] 14.8 % Normal 11.5-15.0 [facility] Comment on above: Order Comment: Speci men Type: BLOOD SPECIMENOrdering Facility: [facility] Address: [address] [place] [address] Performed By: #### 5 8410-2 ####[facility] LABCLIA [id number] [place] [address] [place] Hematocrit (Bld) [Volume fraction] 33.8 % Low 39.0-51.0 [facility] Comment on above: Order Comment: Speci men Type: BLOOD SPECIMENOrdering Facility: [facility] Address: [address] [place] [address] Performed By: #### 5 8410-2 ####[facility] LABIA [id number] [place] [address] [place] Hemoglobin (Bld) [Mass/Vol] 10.9 g/dL Low 13.0-17.0 [facility] Comment on above: Order Comment: Speci men Type: BLOOD SPECIMENOrdering Facility: [facility] Address: [address] [place] [address] Performed By: #### 5 8410-2 ####[facility] LABIA [id number] [place] [address] [place] MCH (RBC) [Entitic mass] 30.1 pg Normal 26.0-34.0 [facility] Comment on above: Order Comment: Speci men Type: BLOOD SPECIMENOrdering Facility: [facility] Address: [address] [place] [address] Performed By: #### 5 8410-2 ####[facility] LABIA [id number] [place] [address] [place] MCHC (RBC) [Mass/Vol] 32.2 g/dL Normal 30.5-36.0 [facility] Comment on above: Order Comment: Speci men Type: BLOOD SPECIMENOrdering Facility: [facility] Address: [address] [place] [address] Performed By: #### 5 8410-2 ####[facility] LABIA [id number] [place] [id number] [place] MCV (RBC) [Entitic vol] 93.4 fL Normal 80.0-100.0 [facility] Comment on above: Order Comment: Speci men Type: BLOOD SPECIMENOrdering Facility: [facility] Address: [address] [place] [address] Performed By: #### 5 8410-2 ####[facility] LABIA [id number] [address] [place] [address] [place] Nucleated RBC (Bld) [#/Vol] 10*3/uL Normal <0.01 [facility] Comment on above: Order Comment: Speci men Type: BLOOD SPECIMENOrdering Facility: [facility] Address: [address] [place] [address] Performed By: #### 5 8410-2 ####[facility] LABCLIA [id number] [place] [address] [place] Platelet mean volume (Bld) [Entitic vol] 11.0 fL Normal 9.0-12.7 [facility] Comment on above: Order Comment: Speci men Type: BLOOD SPECIMENOrdering Facility: [facility] Address: [address] [place] [address] Performed By: #### 5 8410-2 ####[facility] LABCLIA [id number] [place] [address] [place] Platelets (Bld) [#/Vol] 86 10*3/uL Low 150-400 [facility] Comment on above: Order Comment: Speci men Type: BLOOD SPECIMENOrdering Facility: [facility] Address: [address] [place] [address] Result Comment: No c lot detected. Performed By: #### 5 8410-2 ####[facility] LABIA [id number] [place] [address] [place] RBC (Bld) [#/Vol] 3.62 10*6/uL Low 4.20-6.00 [facility] Comment on above: Order Comment: Speci men Type: BLOOD SPECIMENOrdering Facility: [facility] Address: [address] [place] [address] Performed By: #### 5 8410-2 ####[facility] LABCLIA [id number] [place] [address] [place] WBC (Bld) [#/Vol] 5.61 10*3/uL Normal 3.70-11.00 [facility] Comment on above: Order Comment: Speci men Type: BLOOD SPECIMENOrdering Facility: [facility] Address: [address] [place] [address] Performed By: #### 5 8410-2 ####[facility] LABCLIA [id number] [address] [address] [place] CNDSon 12-01-2024 CNDS Normal [facility] Comprehensive metabolic 2000 panelon 12-01-2024 Albumin [Mass/Vol] 3.2 g/dL Low 3.9-4.9 [facility] Comment on above: Order Comment: Speci men Type: BLOOD SPECIMENOrdering Facility: [facility] Address: [address] [place] [address] Performed By: #### 2 4323-8, HSTNT ####[facility] LABCLIA [id number] [place] [address] [place] ALP [Catalytic activity/Vol] 57 U/L Normal 38-113 [facility] Comment on above: Order Comment: Speci men Type: BLOOD SPECIMENOrdering Facility: [facility] Address: [address] [place] [address] Performed By: #### 2 4323-8, HSTNT ####[facility] LABCLIA [id number] [place] [id number] [place] ALT [Catalytic activity/Vol] 16 U/L Normal 10-54 [facility] Comment on above: Order Comment: Speci men Type: BLOOD SPECIMENOrdering Facility: [facility] Address: [address] [place] [address] Performed By: #### 2 4323-8, HSTNT ####[facility] LABCLIA [id number] [place] [id number] [place] Anion gap [Moles/Vol] 7 mmol/L Low 8-15 [facility] Comment on above: Order Comment: Speci men Type: BLOOD SPECIMENOrdering Facility: [facility] Address: [address] [place] [address] Performed By: #### 2 4323-8, HSTNT ####[facility] LABCLIA [id number] [place] [address] [place] AST [Catalytic activity/Vol] 22 U/L Normal 14-40 [facility] Comment on above: Order Comment: Speci men Type: BLOOD SPECIMENOrdering Facility: [facility] Address: [address] [place] [address] Performed By: #### 2 4323-8, HSTNT ####[facility] LABCLIA [id number] [place] [address] [place] Bilirubin [Mass/Vol] 0.4 mg/dL Normal 0.2-1.3 [facility] Comment on above: Order Comment: Speci men Type: BLOOD SPECIMENOrdering Facility: [facility] Address: [address] [place] [address] Performed By: #### 2 4323-8, HSTNT ####[facility] LABCLIA [id number] [place] [address] [place] Calcium [Mass/Vol] 8.8 mg/dL Normal 8.5-10.2 [facility] Comment on above: Order Comment: Speci men Type: BLOOD SPECIMENOrdering Facility: [facility] Address: [address] [place] [address] Performed By: #### 2 4323-8, HSTNT ####[facility] LABCLIA [id number] [place] [id number] [place] Chloride [Moles/Vol] 105 mmol/L Normal 98-107 [facility] Comment on above: Order Comment: Speci men Type: BLOOD SPECIMENOrdering Facility: [facility] Address: [address] [place] [address] Performed By: #### 2 4323-8, HSTNT ####[facility] LABCLIA [id number] [address] [address] [place] CO2 [Moles/Vol] 26 mmol/L Normal 22-30 [facility] Comment on above: Order Comment: Speci men Type: BLOOD SPECIMENOrdering Facility: [facility] Address: [address] [place] [address] Performed By: #### 2 4323-8, HSTNT ####[facility] LABIA [id number] [address] [address] [place] Creatinine [Mass/Vol] 1.59 mg/dL High 0.73-1.22 [facility] Comment on above: Order Comment: Speci men Type: BLOOD SPECIMENOrdering Facility: [facility] Address: [address] [place] [address] Performed By: #### 2 4323-8, HSTNT ####[facility] [id number] [place] [address] [place] Creatinine and Glomerular filtration rate.predicted panel (S/P/Bld) 43 mL/min/1.73m??? Low >=60 [facility] Comment on above: Order Comment: Speci men Type: BLOOD SPECIMENOrdering Facility: [facility] Address: [address] [place] [address] Result Comment: Keara mated Glomerular Filtration Rate [...] GFR. Performed By: #### 2 4323-8, HSTNT ####[facility] LABIA [id number] [address] [address] [place] Glucose [Mass/Vol] 95 mg/dL Normal 74-99 [facility] Comment on above: Order Comment: Speci men Type: BLOOD SPECIMENOrdering Facility: [facility] Address: [address] [place] [address] Result Comment: The [place] [employer] (ADA) provides guidance for cutoff [...] Standards of Medical Care in Diabetes 2016, [place] [employer]. Diabetes Care. 2016.39(Suppl 1). Performed By: #### 2 4323-8, HSTNT ####[facility] LABCLIA [id number] [place] [address] [place] Potassium [Moles/Vol] 4.9 mmol/L Normal 3.7-5.1 [facility] Comment on above: Order Comment: Speci men Type: BLOOD SPECIMENOrdering Facility: [facility] Address: [address] [place] [address] Performed By: #### 2 4323-8, HSTNT ####[facility] LABCLIA [id number] [place] [address] [place] Protein [Mass/Vol] 6.0 g/dL Low 6.3-8.0 [facility] Comment on above: Order Comment: Speci men Type: BLOOD SPECIMENOrdering Facility: [facility] Address: [address] [place] [address] Performed By: #### 2 4323-8, HSTNT ####[facility] LABCLIA [id number] [place] [address] [place] Sodium [Moles/Vol] 138 mmol/L Normal 136-144 [facility] Comment on above: Order Comment: Speci men Type: BLOOD SPECIMENOrdering Facility: [facility] Address: [address] [place] [address] Performed By: #### 2 4323-8, HSTNT ####[facility] LABCLIA [id number] [address] [place] [address] [place] Urea nitrogen [Mass/Vol] 32 mg/dL High 9-24 [facility] Comment on above: Order Comment: Speci men Type: BLOOD SPECIMENOrdering Facility: [facility] Address: [address] [place] [address] Performed By: #### 2 4323-8, HSTNT ####[facility] LABCLIA [id number] [address] [place] [address] [place] HIGH SENSITIVITY TROPONIN To n 12-01-2024 Troponin T.cardiac High sensitivity method [Mass/Vol] 104 ng/L High <12 [facility] Comment on above: Order Comment: Speci men Type: BLOOD SPECIMENOrdering Facility: [facility] Address: [address] [place] [address] Performed By: #### 2 4323-8, HSTNT ####[facility] LABCLIA [id number] [address] [place] [address] [place] PT EDon 12-01-2024 PT ED Normal [facility] THERAPY NTon 12-01-2024 THERAPY NT Normal [facility] CASE MANAGEMon 11-30-2024 CASE MANAGEM Normal [facility] CBC panel Auto (Bld)on 11-30 Erythrocyte distribution width (RBC) [Ratio] 14.8 % Normal 11.5-15.0 [facility] Comment on above: Order Comment: Speci men Type: BLOOD SPECIMENOrdering Facility: [facility] Address: [address] [place] [address] Performed By: #### 5 8410-2 ####[facility] LABCLIA [id number] [address] [place] [address] [place] Hematocrit (Bld) [Volume fraction] 32.6 % Low 39.0-51.0 [facility] Comment on above: Order Comment: Speci men Type: BLOOD SPECIMENOrdering Facility: [facility] Address: [address] [place] [address] Performed By: #### 5 8410-2 ####[facility] LABIA [id number] [place] [address] [place] Hemoglobin (Bld) [Mass/Vol] 10.7 g/dL Low 13.0-17.0 [facility] Comment on above: Order Comment: Speci men Type: BLOOD SPECIMENOrdering Facility: [facility] Address: [address] [place] [address] Performed By: #### 5 8410-2 ####[facility] LABIA [id number] [place] [address] [place] MCH (RBC) [Entitic mass] 30.1 pg Normal 26.0-34.0 [facility] Comment on above: Order Comment: Speci men Type: BLOOD SPECIMENOrdering Facility: [facility] Address: [address] [place] [address] Performed By: #### 5 8410-2 ####[facility] LABIA [id number] [place] [address] [place] MCHC (RBC) [Mass/Vol] 32.8 g/dL Normal 30.5-36.0 [facility] Comment on above: Order Comment: Speci men Type: BLOOD SPECIMENOrdering Facility: [facility] Address: [address] [place] [address] Performed By: #### 5 8410-2 ####[facility] LABIA [id number] [place] [address] [place] MCV (RBC) [Entitic vol] 91.6 fL Normal 80.0-100.0 [facility] Comment on above: Order Comment: Speci men Type: BLOOD SPECIMENOrdering Facility: [facility] Address: [address] [place] [address] Performed By: #### 5 8410-2 ####[facility] LABCLIA [id number] [address] [address] [place] Nucleated RBC (Bld) [#/Vol] 10*3/uL Normal <0.01 [facility] Comment on above: Order Comment: Speci men Type: BLOOD SPECIMENOrdering Facility: [facility] Address: [address] [place] [address] Performed By: #### 5 8410-2 ####[facility] LABCLIA [id number] [address] [address] [place] Platelet mean volume (Bld) [Entitic vol] 12.0 fL Normal 9.0-12.7 [facility] Comment on above: Order Comment: Speci men Type: BLOOD SPECIMENOrdering Facility: [facility] Address: [address] [place] [address] Performed By: #### 5 8410-2 ####[facility] LABCLIA [id number] [place] [address] [place] Platelets (Bld) [#/Vol] 79 10*3/uL Low 150-400 [facility] Comment on above: Order Comment: Speci men Type: BLOOD SPECIMENOrdering Facility: [facility] Address: [address] [place] [address] Performed By: #### 5 8410-2 ####[facility] LABCLIA [id number] [address] [place] [address] [place] RBC (Bld) [#/Vol] 3.56 10*6/uL Low 4.20-6.00 [facility] Comment on above: Order Comment: Speci men Type: BLOOD SPECIMENOrdering Facility: [facility] Address: [address] [place] [address] Performed By: #### 5 8410-2 ####[facility] LABCLIA [id number] [address] [address] [place] WBC (Bld) [#/Vol] 5.54 10*3/uL Normal 3.70-11.00 [facility] Comment on above: Order Comment: Speci men Type: BLOOD SPECIMENOrdering Facility: [facility] Address: [address] [place] [address] Performed By: #### 5 8410-2 ####[facility] LABIA [id number] [address] [place] [address] [place] CONSULT PROGon 11-30-2024 CONSULT PROG Normal [facility] Comprehensive metabolic 2000 panelon 11-30-2024 Albumin [Mass/Vol] 3.2 g/dL Low 3.9-4.9 [facility] Comment on above: Order Comment: Speci men Type: BLOOD SPECIMENOrdering Facility: [facility] Address: [address] [place] [address] Performed By: #### 2 4323-8, , 2776- ####[facility] LABIA [id number] [place] [id number] [place] ALP [Catalytic activity/Vol] 54 U/L Normal 38-113 [facility] Comment on above: Order Comment: Speci men Type: BLOOD SPECIMENOrdering Facility: [facility] Address: [address] [place] [address] Performed By: #### 2 4323-8, , 2776-09 ####[facility] LABIA [id number] [address] [address] [place] ALT [Catalytic activity/Vol] 20 U/L Normal 10-54 [facility] Comment on above: Order Comment: Speci men Type: BLOOD SPECIMENOrdering Facility: [facility] Address: [address] [place] [address] Performed By: #### 2 4323-8, , 2776-09 ####[facility] LABCLIA [id number] [address] [address] [place] Anion gap [Moles/Vol] 11 mmol/L Normal 8-15 [facility] Comment on above: Order Comment: Speci men Type: BLOOD SPECIMENOrdering Facility: [facility] Address: [address] [place] [address] Performed By: #### 2 4323-8, , 2776-09 ####[facility] LABCLIA [id number] [address] [address] [place] AST [Catalytic activity/Vol] 22 U/L Normal 14-40 [facility] Comment on above: Order Comment: Speci men Type: BLOOD SPECIMENOrdering Facility: [facility] Address: [address] [place] [address] Performed By: #### 2 4323-8, , 2776-09 ####[facility] LABCLIA [id number] [place] [address] [place] Bilirubin [Mass/Vol] 0.4 mg/dL Normal 0.2-1.3 [facility] Comment on above: Order Comment: Speci men Type: BLOOD SPECIMENOrdering Facility: [facility] Address: [address] [place], [place] [address] Performed By: #### 2 4323-8, , 2776-09 ####[facility] LABCLIA [id number] [address] [address] [place] Calcium [Mass/Vol] 8.8 mg/dL Normal 8.5-10.2 [facility] Comment on above: Order Comment: Speci men Type: BLOOD SPECIMENOrdering Facility: [facility] Address: [address] [place], [place] [address] Performed By: #### 2 4323-8, , 2776-09 ####[facility] LABCLIA [id number] [place] [id number] [place] Chloride [Moles/Vol] 102 mmol/L Normal 98-107 [facility] Comment on above: Order Comment: Speci men Type: BLOOD SPECIMENOrdering Facility: [facility] Address: [address] [place] [address] Performed By: #### 2 4323-8, 73342-2, 2777-1 ####[facility]IA [id number] [place] [id number] [place] CO2 [Moles/Vol] 23 mmol/L Normal 22-30 [facility] Comment on above: Order Comment: Speci men Type: BLOOD SPECIMENOrdering Facility: [facility] Address: [address] [place] [address] Performed By: #### 2 4323-8, 43367-3, 277-1 ####[facility] [id number] [place] [address] [place] Creatinine [Mass/Vol] 1.59 mg/dL High 0.73-1.22 [facility] Comment on above: Order Comment: Speci men Type: BLOOD SPECIMENOrdering Facility: [facility] Address: [address] [place] [address] Performed By: #### 2 4323-8, 84066-3, 27771 ####[facility] [id number] [place] [address] [place] Creatinine and Glomerular filtration rate.predicted panel (S/P/Bld) 43 mL/min/1.73m??? Low >=60 [facility] Comment on above: Order Comment: Speci men Type: BLOOD SPECIMENOrdering Facility: [facility] Address: [address] [place] [address] Result Comment: Keara mated Glomerular Filtration Rate [...] Performed By: #### 2 432-8, , 2776-09 ####[facility] LABCLIA [id number] [facility] [id number] [address] [place] Glucose [Mass/Vol] 98 mg/dL Normal 74-99 [facility] Comment on above: Order Comment: Specbrice lassiter Type: BLOOD SPECIMENOrdering Facility: [facility] Address: [address] [place] [address] Result Comment: The [place] Diabetes [employer] (ADA) provides guidance for cutoff [...] Standards of Medical Care in Diabetes 2016, [place] [employer]. Diabetes Care. 2016.39(Suppl 1). Performed By: #### 2 432-8, , 2776-09 ####[facility] LABCLIA [id number] [facility] [address] [place] [address] [place] Potassium [Moles/Vol] 4.4 mmol/L Normal 3.7-5.1 [facility] Comment on above: Order Comment: Ian lassiter Type: BLOOD SPECIMENOrdering Facility: [facility] Address: [address] [place] [address] Performed By: #### 2 432-8, , 2776-09 ####[facility] LABCLIA [id number] [facility] CORPORATIONLID AVENUEHOLLYWOOD [facility] [id number] [address] [place] Protein [Mass/Vol] 5.8 g/dL Low 6.3-8.0 [facility] Comment on above: Order Comment: Speci men Type: BLOOD SPECIMENOrdering Facility: [facility] Address: [address] [place] [address] Performed By: #### 2 4323-8, , 2776-09 ####[facility] LABCLIA [id number] [place] [id number] [place] Sodium [Moles/Vol] 136 mmol/L Normal 136-144 [facility] Comment on above: Order Comment: Speci men Type: BLOOD SPECIMENOrdering Facility: [facility] Address: [address] [place] [address] Performed By: #### 2 4323-8, , 2776-09 ####[facility] LABCLIA [id number] [place] [address] [place] Urea nitrogen [Mass/Vol] 37 mg/dL High 9-24 [facility] Comment on above: Order Comment: Speci men Type: BLOOD SPECIMENOrdering Facility: [facility] Address: [address] [place] [address] Performed By: #### 2 4323-8, , 2776-09 ####[facility]IA [id number] [place] [id number] [place] Magnesium SerPl-mCncon 11-30 Magnesium [Mass/Vol] 2.3 mg/dL Normal 1.7-2.3 [facility] Comment on above: Order Comment: Speci men Type: BLOOD SPECIMENOrdering Facility: [facility] Address: [address] [place], [place] [address] Performed By: #### 2 4323-8, , 2776-09 ####[facility] LABCLIA [id number] [address] [address] [place] NURSING PROGon 11-30-2024 NURSING PROG Normal [facility] Phosphate SerPl-mCncon 11-30 Phosphate [Mass/Vol] 3.1 mg/dL Normal 2.7-4.8 [facility] Comment on above: Order Comment: Speci men Type: BLOOD SPECIMENOrdering Facility: [facility] Address: [address] [place] [address] Performed By: #### 2 4323-8, 28939-3, 2777-1 ####[facility] LABCLIA [id number] [place] [address] [place] THERAPY NTon 11-30-2024 THERAPY NT Normal [facility] THERAPY NT Normal [facility] CAITLYN BY IFA WITH REFLEXon Nuclear Ab pattern (S) [Interp] Nuclear homogeneous Normal [facility] Comment on above: Order Comment: Speci men Type: BLOOD SPECIMENOrdering Facility: [facility] Address: [address] [place] [address] Performed By: #### A NAIFR, 86732-6, 73183-4, 26271-4, 70175-8, 62993-5, 69167-5, 79189-8, 45276-8, 89343-7, 6457-6 ####[facility] LABCLIA [id number] [place] [address] [place] Nuclear Ab Ql (S) Positive Abnormal Negative [facility] Comment on above: Order Comment: Speci men Type: BLOOD SPECIMENOrdering Facility: [facility] Address: [address] [place] [address] Result Comment: Anti -nuclear antibody test is used as an aid in diagnosis of systemic autoimmune diseases. Where positive and clinically warranted, follow-up using disease-specific testing is recommended. Low positive titers are not uncommon with advanced age, certain chronic infections, and malignancies among others.Test methodology: Indirect fluorescence immunoassay (IFA) using HEp-2 cells.1:320 Performed By: #### A NAIFR, 13308-7, 74609-5, 89181-5, 47910-7, 71484-3, 83571-4, 12242-8, 48800-3, 75501-7, 6457-6 ####[facility]IA [id number] [address], [facility] [place] CASE MGT INIT ASSESon 2024 CASE MGT INIT ASSES Normal [facility] CBC panel Auto (Bld)on 11-29 Erythrocyte distribution width (RBC) [Ratio] 14.9 % Normal 11.5-15.0 [facility] Comment on above: Order Comment: Speci men Type: BLOOD SPECIMENOrdering Facility: [facility] Address: [address] [place] [address] Performed By: #### 5 8410-2 ####[facility] [id number] [place] [address] [place] Hematocrit (Bld) [Volume fraction] 31.7 % Low 39.0-51.0 [facility] Comment on above: Order Comment: Speci men Type: BLOOD SPECIMENOrdering Facility: [facility] Address: [address] [place] [address] Performed By: #### 5 8410-2 ####[facility] [id number] [address] [place] Hemoglobin (Bld) [Mass/Vol] 10.5 g/dL Low 13.0-17.0 [facility] Comment on above: Order Comment: Speci men Type: BLOOD SPECIMENOrdering Facility: [facility] Address: [address] [place] [address] Performed By: #### 5 8410-2 ####[facility] [id number] [place] [id number] [place] MCH (RBC) [Entitic mass] 30.3 pg Normal 26.0-34.0 [facility] Comment on above: Order Comment: Speci men Type: BLOOD SPECIMENOrdering Facility: [facility] Address: [address] [place] [address] Performed By: #### 5 8410-2 ####[facility] [id number] [place] [address] [place] MCHC (RBC) [Mass/Vol] 33.1 g/dL Normal 30.5-36.0 [facility] Comment on above: Order Comment: Speci men Type: BLOOD SPECIMENOrdering Facility: [facility] Address: [address] [place] [address] Performed By: #### 5 8410-2 ####[facility] [id number] [place] [address] [place] MCV (RBC) [Entitic vol] 91.4 fL Normal 80.0-100.0 [facility] Comment on above: Order Comment: Speci men Type: BLOOD SPECIMENOrdering Facility: [facility] Address: [address] [place] [address] Performed By: #### 5 8410-2 ####[facility] [id number] [place] [address] [place] Nucleated RBC (Bld) [#/Vol] 10*3/uL Normal <0.01 [facility] Comment on above: Order Comment: Speci men Type: BLOOD SPECIMENOrdering Facility: [facility] Address: [address] [place] [address] Performed By: #### 5 8410-2 ####[facility] [id number] [place] [address] [place] Platelet mean volume (Bld) [Entitic vol] 10.5 fL Normal 9.0-12.7 [facility] Comment on above: Order Comment: Speci men Type: BLOOD SPECIMENOrdering Facility: [facility] Address: [address] [place] [address] Performed By: #### 5 8410-2 ####[facility] [id number] [place] [id number] [place] Platelets (Bld) [#/Vol] 87 10*3/uL Low 150-400 [facility] Comment on above: Order Comment: Speci men Type: BLOOD SPECIMENOrdering Facility: [facility] Address: [address] [place] [address] Performed By: #### 5 8410-2 ####[facility] [id number] [place] [address] [place] RBC (Bld) [#/Vol] 3.47 10*6/uL Low 4.20-6.00 [facility] Comment on above: Order Comment: Speci men Type: BLOOD SPECIMENOrdering Facility: [facility] Address: [address] [place] [address] Performed By: #### 5 8410-2 ####[facility] [id number] [place] [address] [place] WBC (Bld) [#/Vol] 4.89 10*3/uL Normal 3.70-11.00 [facility] Comment on above: Order Comment: Speci men Type: BLOOD SPECIMENOrdering Facility: [facility] Address: [address] [place] [address] Performed By: #### 5 8410-2 ####[facility] [id number] [place] [address] [place] CONSULT PROGon 11-29-2024 CONSULT PROG Normal [facility] Centromere Ab IF Ql (S)on Centromere Ab Qn (S) <0.2 Normal <1.0 [facility] Comment on above: Order Comment: Speci men Type: BLOOD SPECIMENOrdering Facility: [facility] Address: [address] [place] [address] Result Comment: Anti -centromere antibody is used as in aid in diagnosis of systemic sclerosis. Clinical correlation is required.Test Methodology: Multiplex flow immunoassay. Performed By: #### A ESTEPHANIA 78787-1, 92903-8, 06906-7, 03503-5, 39814-2, 02442-0, 73780-8, 03750-3, 19501-5, 6457-6 ####[facility] [id number] [place] [address] [place] CENTROMERE AB QUAL Negative Normal Negative [facility] Comment on above: Order Comment: Speci men Type: BLOOD SPECIMENOrdering Facility: [facility] Address: [address] [place] [address] Performed By: #### A NAIFR, 15249-8, 99475-3, 59550-6, 75846-1, 27479-1, 16162-3, 23910-2, 82750-5, 78327-5, 6457-6 ####[facility] [id number] [place] [address] [place] Chromatin Ab Qnon 11-29-2024 CHROMATIN AB QUAL Negative Normal Negative [facility] Comment on above: Order Comment: Speci men Type: BLOOD SPECIMENOrdering Facility: [facility] Address: [address] [place] [address] Performed By: #### A NAIFR, 44067-3, 12010-0, 39151-8, 20508-0, 99572-0, 01565-4, 23956-2, 80954-2, 82161-7, 6457-6 ####[facility] [id number] [place] [address] [place] Chromatin Ab SerPl-aCncon Chromatin Ab Qn <0.2 Normal <1.0 [facility] Comment on above: Order Comment: Speci men Type: BLOOD SPECIMENOrdering Facility: [facility] Address: [address] [place] [address] Result Comment: Test Methodology: Multiplex flow immunoassay. Performed By: #### A NAIFR, 60550-3, 67865-2, 45105-0, 70727-8, 03156-5, 67355-8, 78256-1, 08980-0, 83583-8, 6457-6 ####[facility] [id number] [address] [address] [place] Comprehensive metabolic 2000 panelon 11-29-2024 Albumin [Mass/Vol] 3.3 g/dL Low 3.9-4.9 [facility] Comment on above: Order Comment: Speci men Type: BLOOD SPECIMENOrdering Facility: [facility] Address: [address] [place], [place] [address] Performed By: #### 2 4323-8, 25265-8, 2776- ####[facility] [id number] [place] [address] [place] ALP [Catalytic activity/Vol] 64 U/L Normal 38-113 [facility] Comment on above: Order Comment: Speci men Type: BLOOD SPECIMENOrdering Facility: [facility] Address: [address] [place], [place] [address] Performed By: #### 2 4323-8, , 2776- ####[facility] [id number] [place] [address] [place] ALT [Catalytic activity/Vol] 19 U/L Normal 10-54 [facility] Comment on above: Order Comment: Speci men Type: BLOOD SPECIMENOrdering Facility: [facility] Address: [address] [place] [address] Performed By: #### 2 4323-8, 10140-2, 2776- ####[facility] [id number] [address] [address] [place] Anion gap [Moles/Vol] 8 mmol/L Normal 8-15 [facility] Comment on above: Order Comment: Speci men Type: BLOOD SPECIMENOrdering Facility: [facility] Address: [address] [place] [address] Performed By: #### 2 4323-8, , 2776-09 ####[facility] [id number] [address] [address] [place] AST [Catalytic activity/Vol] 24 U/L Normal 14-40 [facility] Comment on above: Order Comment: Speci men Type: BLOOD SPECIMENOrdering Facility: [facility] Address: [address] [place], [place] [address] Performed By: #### 2 4323-8, , 2776-09 ####[facility] [id number] [place] [address] [place] Bilirubin [Mass/Vol] 0.4 mg/dL Normal 0.2-1.3 [facility] Comment on above: Order Comment: Speci men Type: BLOOD SPECIMENOrdering Facility: [facility] Address: [address] [place] [address] Performed By: #### 2 4323-8, , 2776-09 ####[facility] [id number] [place] [address] [place] Calcium [Mass/Vol] 8.8 mg/dL Normal 8.5-10.2 [facility] Comment on above: Order Comment: Speci men Type: BLOOD SPECIMENOrdering Facility: [facility] Address: [address] [place], [place] [address] Performed By: #### 2 4323-8, , 2776-09 ####[facility] [id number] [place] [address] [place] Chloride [Moles/Vol] 103 mmol/L Normal 98-107 [facility] Comment on above: Order Comment: Speci men Type: BLOOD SPECIMENOrdering Facility: [facility] Address: [address] [place], [place] [address] Performed By: #### 2 4323-8, , 2776-09 ####[facility] [id number] [address] [address] [place] CO2 [Moles/Vol] 26 mmol/L Normal 22-30 [facility] Comment on above: Order Comment: Speci men Type: BLOOD SPECIMENOrdering Facility: [facility] Address: [address] [place] [address] Performed By: #### 2 432-8, , 2776-09 ####[facility] [id number] [address] [address] [place] Creatinine [Mass/Vol] 1.59 mg/dL High 0.73-1.22 [facility] Comment on above: Order Comment: Speci men Type: BLOOD SPECIMENOrdering Facility: [facility] Address: [address] [place] [address] Performed By: #### 2 4328, , 2776-09 ####[facility] [id number] [place] [address] [place] Creatinine and Glomerular filtration rate.predicted panel (S/P/Bld) 43 mL/min/1.73m??? Low >=60 [facility] Comment on above: Order Comment: Speci men Type: BLOOD SPECIMENOrdering Facility: [facility] Address: [address] [place] [address] Result Comment: Keara mated Glomerular Filtration Rate [...] Performed By: #### 2 4323-8, , 2776-09 ####[facility] [id number] [address] [address] [place] Glucose [Mass/Vol] 109 mg/dL High 74-99 [facility] Comment on above: Order Comment: Speci men Type: BLOOD SPECIMENOrdering Facility: [facility] Address: [address] [place] [address] Result Comment: The [place] [employer] (ADA) provides guidance for cutoff [...] Standards of Medical Care in Diabetes 2016, [place] [employer]. Diabetes Care. 2016.39(Suppl 1). Performed By: #### 2 4323-8, , 2776-09 ####[facility] [id number] [place] [address] [place] Potassium [Moles/Vol] 4.0 mmol/L Normal 3.7-5.1 [facility] Comment on above: Order Comment: Speci men Type: BLOOD SPECIMENOrdering Facility: [facility] Address: [address] [place] [address] Performed By: #### 2 4323-8, , 2776-09 ####[facility] [id number] [place] [address] [place] Protein [Mass/Vol] 6.0 g/dL Low 6.3-8.0 [facility] Comment on above: Order Comment: Speci men Type: BLOOD SPECIMENOrdering Facility: [facility] Address: [address] [place] [address] Performed By: #### 2 4323-8, , 2776-09 ####[facility] [id number] [place] [address] [place] Sodium [Moles/Vol] 137 mmol/L Normal 136-144 [facility] Comment on above: Order Comment: Speci men Type: BLOOD SPECIMENOrdering Facility: [facility] Address: [address] [place] [address] Performed By: #### 2 4323-8, 00477-3, 2777-1 ####[facility] [id number] [place] [address] [place] Urea nitrogen [Mass/Vol] 39 mg/dL High 9-24 [facility] Comment on above: Order Comment: Speci men Type: BLOOD SPECIMENOrdering Facility: [facility] Address: [address] [place] [address] Performed By: #### 2 4323-8, 15816-3, 2777-1 ####[facility] [id number] [place] [address] [place] DNA double strand Ab IA Qn ( S)on 11-29-2024 DNA ANTIBODY 543 IU/mL High <=200 [facility] Comment on above: Order Comment: Speci men Type: BLOOD SPECIMENOrdering Facility: [facility] Address: [address] [place] [address] Result Comment: Nega tive: <200 IU/mLEquivocal: 201-300 IU/mLModerate Positive: 301-800 IU/mLStrong Positive: >801 IU/mL Performed By: #### A NAIFR, 40701-3, 62224-5, 47797-1, 31535-6, 58482-7, 23225-6, 66853-0, 07736-2, 77761-1, 6457-6 ####[facility] [id number] [place] [address] [place] DNA ANTIBODY QUALITATIVE INTERPRETATION Positive Abnormal Negative [facility] Comment on above: Order Comment: Speci men Type: BLOOD SPECIMENOrdering Facility: [facility] Address: [address] [place] [address] Performed By: #### A NAIFR, 71220-5, 93645-1, 43477-3, 19246-8, 10398-7, 84252-8, 55447-0, 75271-1, 30620-2, 6457-6 ####[facility] [id number] [address], [place] [address] [place] ECHO LIMITEDon 11-29-2024 ECHO LIMITED Normal [facility] SULEIMAN Jo1 Ab Ser-aCncon 2024 Keily-1 extractable nuclear Ab Qn (S) <0.2 Normal <1.0 [facility] Comment on above: Order Comment: Speci men Type: BLOOD SPECIMENOrdering Facility: [facility] Address: [address] [place] [address] Performed By: #### A NAIFR, 19086-3, 23673-5, 70283-1, 39256-9, 26246-9, 39432-1, 17187-3, 71479-8, 75736-6, 6457-6 ####[facility] [id number] [address], [facility] [place] SULEIMAN SORT LINE Ab Ser-aCncon 2024 Ribonucleoprotein extractable nuclear Ab Qn (S) <0.2 Normal <1.0 [facility] Comment on above: Order Comment: Speci men Type: BLOOD SPECIMENOrdering Facility: [facility] Address: [address] [place] [address] Performed By: #### A NAIFR, 44065-1, 26928-5, 33963-1, 24699-3, 48586-4, 56590-5, 08002-9, 71167-5, 31149-1, 6457-6 ####[facility] [id number] [address], [facility] [place] Ribonucleoprotein extractable nuclear Ab Qn (S) 0.4 AI Normal <1.0 [facility] Comment on above: Order Comment: Speci men Type: BLOOD SPECIMENOrdering Facility: [facility] Address: [address] [place] [address] Performed By: #### A NAIFR, 82400-3, 45309-8, 83917-2, 25585-9, 84078-3, 24792-3, 25991-6, 60902-9, 31019-2, 6457-6 ####[facility] [id number] [place] [address] [place] SULEIMAN SM IgG Ser-aCncon 2024 Dawkins extractable nuclear IgG Qn (S) <0.2 Normal <1.0 [facility] Comment on above: Order Comment: Speci men Type: BLOOD SPECIMENOrdering Facility: [facility] Address: [address] [place] [address] Performed By: #### A NAANDREYR, 40363-9, 54003-3, 27393-3, 92150-2, 54498-6, 44184-5, 45254-3, 50326-0, 71579-8, 6457-6 ####[facility] [id number] [address] [place] SULEIMAN SS-A Ab Ser-aCncon 11-29 Sjogrens syndrome-A extractable nuclear Ab Qn (S) <0.2 Normal <1.0 [facility] Comment on above: Order Comment: Speci men Type: BLOOD SPECIMENOrdering Facility: [facility] Address: [address] [place] [address] Result Comment: Test Methodology: Multiplex flow immunoassay. Performed By: #### A NAIFR, 31875-7, 96546-5, 60147-6, 65204-2, 91824-0, 43945-3, 92546-1, 75456-9, 15088-6, 6457-6 ####[facility] [id number] [place] [address] [place] SULEIMAN SS-B Ab Ser-aCncon 11-29 Sjogrens syndrome-B extractable nuclear Ab Qn (S) <0.2 Normal <1.0 [facility] Comment on above: Order Comment: Ian lassiter Type: BLOOD SPECIMENOrdering Facility: [facility] Address: [address] [place] [address] Result Comment: Anti -SSB (anti-La) antibody is used as an aid in diagnosis of a variety of systemic autoimmune diseases, especially for Sjogren's syndrome and systemic lupus erythematosus. Clinical correlation is required.Test Methodology: Multiplex flow immunoassay. Performed By: #### A NAIFR, 69274-5, 99502-9, 36412-3, 63336-9, 53276-6, 90989-9, 47896-2, 55977-2, 15436-5, 6457-6 ####[facility] [id number] [place] [address] [place] HBV core Ab Ser Qlon 025 HBV core Ab Ql (S) Negative Normal Negative [facility] Comment on above: Order Comment: Ian lassiter Type: BLOOD SPECIMENOrdering Facility: [facility] Address: [address] [place] [address] Result Comment: No e vidence of current or past infection with Hepatitis B virus. Should recent infection be suspected, repeat testing may be considered 3-4 weeks after this draw. Performed By: #### 1 6933-4, 5195-3, 66368-2 ####[facility] [id number] [place] [address] [place] HBV surface Ab Ql (S)on 11-18 HBV surface Ab Qn (S) <8.00 Normal [facility] Comment on above: Order Comment: Ian lassiter Type: BLOOD SPECIMENOrdering Facility: [facility] Address: [address] [place] [address] Result Comment: <8 m IU/mL: No serological evidence of immunity to Hepatitis B Virus.>/= 8 to <12 mIU/mL: No serological evidence of immunity to Hepatitis B Virus.>/= 12 mIU/mL: Consistent with serological evidence of immunity to Hepatitis B Virus. Performed By: #### 1 6933-4, 5-3, 63887-1 ####[facility] [id number] [address] [address] [place] HBV surface Ab Ser Qlon 11-18 HBV surface Ab Ql (S) Negative Normal [facility] Comment on above: Order Comment: Speci men Type: BLOOD SPECIMENOrdering Facility: [facility] Address: [address] [place] [address] Result Comment: No s erological evidence of immunity to Hepatitis B Virus. Performed By: #### 1 6933-4, 5-3, 33475-1 ####[facility] [id number] [place] [address] [place] HBV surface Ag Ser Qlon 11-18 HBV surface Ag Ql (S) Negative Normal Negative [facility] Comment on above: Order Comment: Speci men Type: BLOOD SPECIMENOrdering Facility: [facility] Address: [address] [place] [address] Performed By: #### 1 6933-4, 5194-3, 46181-5 ####[facility] [id number] [address] [place] HCV Ab Ser Qlon 11-29-2024 HCV Ab Ql (S) Negative Normal Negative [facility] Comment on above: Order Comment: Speci men Type: BLOOD SPECIMENOrdering Facility: [facility] Address: [address] [place] [address] Result Comment: The result suggests no evidence of active infection with Hepatitis C virus. Should recent infection be suspected, repeat testing may be considered 4-6 weeks after this draw. Performed By: #### 1 6128-1 ####[facility] [id number] [place] [address] [place] HIGH SENSITIVITY TROPONIN To n 11-29-2024 Troponin T.cardiac High sensitivity method [Mass/Vol] 129 ng/L High <12 [facility] Comment on above: Order Comment: Speci men Type: BLOOD SPECIMENOrdering Facility: [facility] Address: [address] [place] [address] Performed By: #### H STNT ####[facility] [id number] [place] [address] [place] Keily-1 extractable nuclear Ab Qn (S)on 11-29-2024 KEILY 1 ANTIBODY QUAL Negative Normal Negative [facility] Comment on above: Order Comment: Speci men Type: BLOOD SPECIMENOrdering Facility: [facility] Address: [address] [place] [address] Result Comment: Anti -KEILY-1 antibody is used as an aid in diagnosis of polymyositis and dermatomyositis especially with pulmonary involvement. A negative result cannot rule out polymyositis or dermatomyositis. Clinical correlation is required.Test Methodology: Multiplex flow immunoassay. Performed By: #### A NAIFR, 19802-5, 40663-3, 26427-8, 92754-9, 72398-7, 39825-3, 93031-4, 60125-1, 50923-2, 6457-6 ####[facility] [id number] [place] [address] [place] Magnesium SerPl-mCncon 11-29 Magnesium [Mass/Vol] 2.3 mg/dL Normal 1.7-2.3 [facility] Comment on above: Order Comment: Speci men Type: BLOOD SPECIMENOrdering Facility: [facility] Address: [address] [place] [address] Performed By: #### 2 4323-8, 22671-6, 2777-1 ####[facility] [id number] [place] [address] [place] Phosphate SerPl-mCncon 11-29 Phosphate [Mass/Vol] 3.3 mg/dL Normal 2.7-4.8 [facility] Comment on above: Order Comment: Ian lassiter Type: BLOOD SPECIMENOrdering Facility: [facility] Address: [address] [place] [address] Performed By: #### 2 4323-8, 86124-8, 2777-1 ####[facility] [id number] [place] [address] [place] Ribonucleoprotein extractabl e nuclear Ab Qn (S)on 11-29-2024 ANTI-SORT LINE QUAL Negative Normal Negative [facility] Comment on above: Order Comment: Ian lassiter Type: BLOOD SPECIMENOrdering Facility: [facility] Address: [address] [place] [address] Performed By: #### A NAIFR, 74864-7, 97956-4, 71840-8, 26268-3, 74544-6, 03501-4, 98445-7, 96402-6, 93503-2, 6457-6 ####[facility] [id number] [place] [address] [place] RIBOSOMAL SORT LINE QUAL Negative Normal Negative [facility] Comment on above: Order Comment: Ian lassiter Type: BLOOD SPECIMENOrdering Facility: [facility] Address: [address] [place] [address] Result Comment: Anti -Ribosomal RNA (Ribosomal P) antibody is used as an aid in diagnosis of systemic autoimmune diseases especially systemic lupus erythematosus and mixed connective tissue disease. Cross-reactivity with Anti-dawkins antibody is not uncommon. Clinical correlation is required.Test Methodology: Multiplex flow immunoassay. Performed By: #### A NAIFR, 62368-5, 02940-6, 15562-4, 66777-8, 60965-9, 60072-9, 10003-8, 51056-8, 45808-7, 6457-6 ####[facility] [id number] [address] [address] [place] SCL-70 extractable nuclear I gG IA Qn (S)on 11-29-2024 SCLERODERMA AB QUAL Negative Normal Negative [facility] Comment on above: Order Comment: Speci men Type: BLOOD SPECIMENOrdering Facility: [facility] Address: [address] [place] [address] Performed By: #### A NAIFR, 09306-0, 91151-2, 59828-3, 76995-1, 04741-0, 58789-8, 08566-2, 68992-2, 75131-2, 6457-6 ####[facility] [id number] [place] [address] [place] SCLERODERMA IGG AB <0.2 Normal <1.0 [facility] Comment on above: Order Comment: Speci men Type: BLOOD SPECIMENOrdering Facility: [facility] Address: [address] [place] [address] Result Comment: Scl- 70/Scleroderma antibody test is used as an aid in diagnosis of systemic sclerosis especially the diffuse cutaneous form. A negative result cannot rule out systemic sclerosis. The final interpretation should consider clinical picture and other test results such as anti-centromere antibody. Test Methodology: Multiplex flow immunoassay. Performed By: #### A SANDEER, 23313-3, 81553-3, 00089-8, 73427-6, 43237-9, 88450-9, 79715-9, 97115-5, 13428-2, 6457-6 ####[facility] [id number] [place] [id number] [place] Sjogrens syndrome-A extracta ble nuclear Ab Qn (S)on 11-29-2024 SSA ANTIBODY QUAL Negative Normal Negative [facility] Comment on above: Order Comment: Speci men Type: BLOOD SPECIMENOrdering Facility: [facility] Address: [address] [place] [address] Performed By: #### A NAIFR, 91865-1, 43216-8, 73533-8, 43239-1, 77145-9, 55039-1, 67426-6, 52675-0, 79087-2, 6457-6 ####[facility] [id number] [place] [address] [place] Sjogrens syndrome-B extracta ble nuclear Ab Qn (S)on 11-29-2024 SSB ANTIBODY QUAL Negative Normal Negative [facility] Comment on above: Order Comment: Speci men Type: BLOOD SPECIMENOrdering Facility: [facility] Address: [address] [place] [address] Performed By: #### A NAIFR, 75073-0, 02283-7, 86381-3, 18055-0, 63112-1, 62112-8, 75799-6, 40107-2, 24691-6, 6457-6 ####[facility] [id number] [place] [address] [place] Dawkins extractable nuclear Ig G Qn (S)on 11-29-2024 SM ANTIBODY QUAL Negative Normal Negative [facility] Comment on above: Order Comment: Speci men Type: BLOOD SPECIMENOrdering Facility: [facility] Address: [address] [place] [address] Result Comment: Anti -Sm (Dawkins) antibody is used as an aid in diagnosis of systemic lupus erythematosus and its presence is associated with renal disease. A negative result cannot rule out systemic lupus erythematosus. Clinical correlation is required.Test Methodology: Multiplex flow immunoassay. Performed By: #### A NAIFR, 63405-3, 82060-8, 16038-5, 47683-1, 69756-8, 01743-9, 13740-2, 81731-0, 87789-1, 6457-6 ####[facility] [id number] [place] [address] [place] Urinalysis complete panel (U )on 11-29-2024 Bacteria LM.HPF (Urine sed) [#/Area] Negative Normal Negative [facility] Comment on above: Order Comment: Speci men Type: URINE SPECIMENOrdering Facility: [facility] Address: [address] [place] [address] Performed By: #### 2 4356-8 ####[facility] [id number] [address], [facility] [place] Bilirubin Ql (U) Negative Normal Negative [facility] Comment on above: Order Comment: Speci men Type: URINE SPECIMENOrdering Facility: [facility] Address: [address] [place] [address] Performed By: #### 2 4356-8 ####[facility] [id number] [place] [address] [place] Clarity (Unsp spec) Clear Normal Clear [facility] Comment on above: Order Comment: Speci men Type: URINE SPECIMENOrdering Facility: [facility] Address: [address] [place] [address] Performed By: #### 2 4356-8 ####[facility] [id number] [place] [address] [place] Color (U) Yellow Normal Yellow [facility] Comment on above: Order Comment: Speci men Type: URINE SPECIMENOrdering Facility: [facility] Address: [address] [place] [address] Performed By: #### 2 4356-8 ####[facility] [id number] [place] [id number] [place] Epithelial cells LM.HPF (Urine sed) [#/Area] None Seen Normal [facility] Comment on above: Order Comment: Speci men Type: URINE SPECIMENOrdering Facility: [facility] Address: [address] [place] [address] Performed By: #### 2 4356-8 ####[facility] [id number] [place] [id number] [place] Glucose Test strip (U) [Mass/Vol] Negative Normal Negative [facility] Comment on above: Order Comment: Speci men Type: URINE SPECIMENOrdering Facility: [facility] Address: [address] [place] [address] Performed By: #### 2 4356-8 ####[facility] [id number] [address] [place] [address] [place] Hemoglobin Ql (U) Negative Normal Negative [facility] Comment on above: Order Comment: Speci men Type: URINE SPECIMENOrdering Facility: [facility] Address: [address] [place] [address] Performed By: #### 2 4356-8 ####[facility] [id number] [address], [place] [address] [place] Hyaline casts (Urine sed) [#/Area] 0 /[LPF] Normal 0 /LPF [facility] Comment on above: Order Comment: Speci men Type: URINE SPECIMENOrdering Facility: [facility] Address: [address] [place] [address] Performed By: #### 2 4356-8 ####[facility] [id number] [address], [place] [address] [place] Ketones Ql (U) Negative Normal Negative [facility] Comment on above: Order Comment: Speci men Type: URINE SPECIMENOrdering Facility: [facility] Address: [address] [place] [address] Performed By: #### 2 4356-8 ####[facility] [id number] [address], [facility] [place] Leukocyte esterase Test strip Ql (U) Negative Normal Negative [facility] Comment on above: Order Comment: Speci men Type: URINE SPECIMENOrdering Facility: [facility] Address: [address] [place] [address] Performed By: #### 2 4356-8 ####[facility] [id number] [place] [address] [place] Nitrite Ql (U) Negative Normal Negative [facility] Comment on above: Order Comment: Speci men Type: URINE SPECIMENOrdering Facility: [facility] Address: [address] [place] [address] Performed By: #### 2 4356-8 ####[facility] LABIA [id number] [place] [address] [place] pH (U) 6.0 [pH] Normal <8.5 [facility] Comment on above: Order Comment: Speci men Type: URINE SPECIMENOrdering Facility: [facility] Address: [address] [place] [address] Performed By: #### 2 4356-8 ####[facility] LABIA [id number] [place] [address] [place] Protein (U) [Mass/Vol] Trace Abnormal Negative [facility] Comment on above: Order Comment: Speci men Type: URINE SPECIMENOrdering Facility: [facility] Address: [address] [place] [address] Performed By: #### 2 4356-8 ####[facility] LABIA [id number] [place] [address] [place] RBC LM.HPF (Urine sed) [#/Area] 0-2 /HPF Normal 0-2 /HPF [facility] Comment on above: Order Comment: Speci men Type: URINE SPECIMENOrdering Facility: [facility] Address: [address] [place] [address] Performed By: #### 2 4356-8 ####[facility] LABIA [id number] [place] [id number] [place] Specific gravity (U) [Rel density] 1.034 High 1.005-1.030 [facility] Comment on above: Order Comment: Speci men Type: URINE SPECIMENOrdering Facility: [facility] Address: [address] [place] [address] Performed By: #### 2 4356-8 ####[facility] LABIA [id number] [place] [address] [place] Urobilinogen Ql (U) 0.2 EU/dL Normal 0.2-1.0 EU/dL [facility] Comment on above: Order Comment: Speci men Type: URINE SPECIMENOrdering Facility: [facility] Address: [address] [place] [address] Performed By: #### 2 4356-8 ####[facility] [id number] [place] [address] [place] WBC LM.HPF (Urine sed) [#/Area] 0-5 /HPF Normal 0-5 /HPF [facility] Comment on above: Order Comment: Speci men Type: URINE SPECIMENOrdering Facility: [facility] Address: [address] [place] [address] Performed By: #### 2 4356-8 ####[facility] [id number] [place] [address] [place] XR ABDOMEN 1V SUPINEon 11-29 XR ABDOMEN 1V SUPINE Normal [facility] dsDNA Ab Ser Ql CLIFon 11-29 DNA double strand Ab IF Crithidia luciliae Ql (S) Negative Normal Negative [facility] Comment on above: Order Comment: Speci men Type: BLOOD SPECIMENOrdering Facility: [facility] Address: [address] [place] [address] Result Comment: Crit hidia luciliae assay is used as an aid in diagnosis of systemic lupus erythematosus (SLE). A negative result cannot rule out SLE. Low positive titers may be seen with other systemic autoimmune diseases. Clinical correlation is required. Performed By: #### A NAIFR, 26956-9, 93337-5, 00060-4, 28730-6, 38191-9, 80349-3, 90477-3, 56840-2, 46450-4, 6457-6 ####[facility] LAB[facility] [id number] [place] [address] [place] 12 Lead EKGon 11-28-2024 12 Lead EKG [facility] [address] [place] [address] 12 Lead EKG 11/28/24 1752 MR#: [id number] Acct: [id number] Name: LEANA CAMEJO Rep #: [id number] : 1940 84 From: Beronica Turcios MD [...] ECG Confirmed by NICO LAWTON, RICHARD ([id number]), editor school photograph BENITA NUNN ([id number]) on 12/04/2024 11:27:45 AM Referred By: Confirmed By: RICHARD TURCIOS MD 12/04/24 1127 Date Beronica Turcios MD CC: Dr. Nate Gray MD; Dr. Dallas Reed MD Signed Normal [facility] Abdomen/Pelvis W IV Cont ONL Yon 11-28-2024 Abdomen/Pelvis W IV Cont ONLY [facility] Imaging Services [address] [facility] [address] [place], [place] [id number] Abdomen/Pelvis W IV Cont ONLY MR#: [id number] Acct: [id number] Name: LEANA CAMEJO Rep #: [id number] : 1940 M 84 From: Alexandru Lucero i, MD PCP: Dr. Dallas Reed MD Status: PRE ER Study: Abdomen/Pelvis W IV Cont ONLY Date of Exam: Exam# [id number] Ordering Dr: Nate Gray MD PROCEDURE: ABDOMEN/PELVIS [...] abnormal enhancement within the sac of the red lake aorta which are consistent with endoleak arising [...] Interval increase in contrast blush within the red lake aortic sac. These finding is consistent with [...] use of iterative reconstruction technique). Reading Location: [id number] CC: Dr. Nate Gray MD; Dr. Dallas Reed MD Whizzer Hand: Signed Normal [facility] Absolute lymphocyte countOrd ered By: Nate Gray on 11-28-2024 Lymphocytes Auto (Unsp spec) [#/Vol] 0.86 10*3/uL 0.83-4.51 [facility] Absolute neutrophil countOrd ered By: Nate Gray on 11-28-2024 Neutrophils (Bld) [#/Vol] 3.6 10*3/uL 2.0-7.7 [facility] Anion gap in Serum or Plasma Ordered By: Nate Gray on 11-28-2024 Anion gap [Moles/Vol] 13 mmol/L 5-15 [facility] Automated lymphocyte count a s percentage of total leukocytesOrdered By: Ntae Gray on 11-28-2024 Lymphocytes/100 WBC Auto (Unsp spec) 17.0 % Low 19-41 [facility] BUN/creatinine ratioOrdered By: Nate Gray on 11-28-2024 Urea nitrogen/Creatinine [Mass ratio] 26.9 mg/mg High 10-20 [facility] Bacteria Bld Culton 11-29-19 25 Bacteria identified Cx Nom (Bld) CULTURE, BLOOD: No growth 5 days Normal [facility] Comment on above: Performed By: #### 6 00-7 ####[facility] [id number] [address] [place] [address] [place] Bacteria identified Cx Nom (Bld) CULTURE, BLOOD: No growth 5 days Normal [facility] Comment on above: Performed By: #### 6 00-7 ####[facility] [id number] [address] [place] [address] [place] Basophil percentageOrdered B y: Nate Gray on 11-28-2024 Basophils/100 WBC (Bld) 0.6 % 0-1 [facility] Bilirubin Test strip Ql (U)O rdered By: Nate Gray on 11-28-2024 Bilirubin Ql (U) Negative Negative [facility] Bilirubin, totalOrdered By: Nate Gray on 11-28-2024 Bilirubin [Mass/Vol] 0.47 mg/dL 0.00-1.30 [facility] Blood manual differential co mment interpretation (narrative result)Ordered By: Nate Gray on 11-28-2024 Manual differential comment Juvenal (Bld) [Interp] SEE COMMENT [facility] Comment on above: THROMBOCYTOPENIA NOT ED CBC W/Diff, Automatedon 11-18 Anisocytosis Ql (Bld) RARE Normal [facility] Comment on above: Performed By: #### L 501.2450, L100.0100, BTS, L500.4050 #### [facility] [address] [place], [address] MACROCYTOSIS RARE Normal [facility] Comment on above: Performed By: #### L 501.2450, L100.0100, BTS, L500.4050 #### [facility] [address] [place], [address] PLT EST MOD DEC Normal ADEQ [facility] Comment on above: Performed By: #### L 501.2450, L100.0100, BTS, L500.4050 #### [facility] [address] [place], [address] RED CELL MORPH N CHROM Normal NORM C C [facility] Comment on above: Performed By: #### L 501.2450, L100.0100, BTS, L500.4050 #### [facility] [address] [place], [address] SMEAR COMMENT SEE COMMENT Normal [facility] Comment on above: Result Comment: THRO MBOCYTOPENIA NOTED Performed By: #### L 501.2450, L100.0100, BTS, L500.4050 #### [facility] [address] [place], [address] CBC panel Auto (Bld)on 11-28 Erythrocyte distribution width (RBC) [Ratio] 14.9 % Normal 11.5-15.0 [facility] Comment on above: Order Comment: Speci men Type: BLOOD SPECIMENOrdering Facility: [facility] Address: [address] [place] [address] Performed By: #### 3 1201-7, 96987-3 ####[facility] [id number] [place] [id number] [place] Hematocrit (Bld) [Volume fraction] 33.6 % Low 39.0-51.0 [facility] Comment on above: Order Comment: Speci men Type: BLOOD SPECIMENOrdering Facility: [facility] Address: [address] [place] [address] Performed By: #### 3 1201-7, 82033-9 ####[facility] [id number] [place] [id number] [place] Hemoglobin (Bld) [Mass/Vol] 11.0 g/dL Low 13.0-17.0 [facility] Comment on above: Order Comment: Speci men Type: BLOOD SPECIMENOrdering Facility: [facility] Address: [address] [place] [address] Performed By: #### 3 1201-7, 62359-9 ####[facility] [id number] [place] [address] [place] MCH (RBC) [Entitic mass] 30.0 pg Normal 26.0-34.0 [facility] Comment on above: Order Comment: Speci men Type: BLOOD SPECIMENOrdering Facility: [facility] Address: [address] [place] [address] Performed By: #### 3 1201-7, 13549-0 ####[facility]CL[facility] [id number] [place] [address] [place] MCHC (RBC) [Mass/Vol] 32.7 g/dL Normal 30.5-36.0 [facility] Comment on above: Order Comment: Speci men Type: BLOOD SPECIMENOrdering Facility: [facility] Address: [address] [place] [address] Performed By: #### 3 1201-7, 72719-7 ####[facility] LABIA [id number] [place] [address] [place] MCV (RBC) [Entitic vol] 91.6 fL Normal 80.0-100.0 [facility] Comment on above: Order Comment: Speci men Type: BLOOD SPECIMENOrdering Facility: [facility] Address: [address] [place] [address] Performed By: #### 3 1201-7, 13777-3 ####[facility] LABCL[facility] [id number] [place] [address] [place] Nucleated RBC (Bld) [#/Vol] 10*3/uL Normal <0.01 [facility] Comment on above: Order Comment: Speci men Type: BLOOD SPECIMENOrdering Facility: [facility] Address: [address] [place] [address] Performed By: #### 3 1201-7, 52689-9 ####[facility] LABIA [id number] [place] [address] [place] Platelet mean volume (Bld) [Entitic vol] 10.2 fL Normal 9.0-12.7 [facility] Comment on above: Order Comment: Speci men Type: BLOOD SPECIMENOrdering Facility: [facility] Address: [address] [place] [address] Performed By: #### 3 1201-7, 44599-6 ####[facility]CL[facility] [id number] [place] [id number] [place] Platelets (Bld) [#/Vol] 85 10*3/uL Low 150-400 [facility] Comment on above: Order Comment: Speci men Type: BLOOD SPECIMENOrdering Facility: [facility] Address: [address] [place] [address] Performed By: #### 3 1201-7, 69712-0 ####[facility] LABCL[facility] [id number] [place] [address] [place] RBC (Bld) [#/Vol] 3.67 10*6/uL Low 4.20-6.00 [facility] Comment on above: Order Comment: Speci men Type: BLOOD SPECIMENOrdering Facility: [facility] Address: [address] [place] [address] Performed By: #### 3 1201-7, 37735-0 ####[facility] LABCL[facility] [id number] [place] [id number] [place] WBC (Bld) [#/Vol] 4.84 10*3/uL Normal 3.70-11.00 [facility] Comment on above: Order Comment: Speci men Type: BLOOD SPECIMENOrdering Facility: [facility] Address: [address] [place] [address] Performed By: #### 3 1201-7, 81987-2 ####[facility] LABCL[facility] [id number] [address] [address] [place] CNCRITCRon 11-28-2024 CNCRITCR Normal [facility] CNPNon 11-28-2024 CNPN Normal [facility] CONFIRM BLOOD TYPEon 025 ABO O Normal [facility] Comment on above: Order Comment: Speci men Type: BLOOD SPECIMENOrdering Facility: [facility] Address: [address] [place] [address] Performed By: #### C ONABO ####[facility] MA[facility] BLOOD BANKCLIA [id number] [place] [address] [place] Rh Nom (Bld) Negative Normal [facility] Comment on above: Order Comment: Speci men Type: BLOOD SPECIMENOrdering Facility: [facility] Address: [address] [place] [address] Performed By: #### C ONABO ####CC MAIN BLOOD BANKCLIA [id number] [place] [address] [place] CT ABD/PEL W IVCONon 025 CT ABD/PEL W IVCON Normal [facility] CT Abdomen and Pelvis W cont rast Adina 11-28-2024 IMPRESSION: 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 There has been interval enlargement of the red lake lumen consistent with a hemodynamically significant leak. Enlargement pancreatic cystic mass. When condition permits suggest correlation with contrast enhanced pancreatic MRI. Diverticulosis Urinary bladder diverticulum. Whizzer Hand: [facility] Transcribe Date/Time: Nov 28 2024 4:21P Dictated by : TONE GA MD This examination was interpreted and the report reviewed and electronically signed by: TONE GA MD on Nov 28 2024 4:40PM [facility] DIVISION OF RADIOLOGY * * *Final Report* * * DATE OF EXAM: Nov 28 2024 3:49PM [facility] 0530 - CT ABD/PEL W [...] endoluminal stenting. The maximal diameter of the red lake abdominal aorta is 6.0 x 6.0 cm. This is enlarged from prior dimensions of 5.4 x 5.6 cm. There is irregular contrast enhancement in the LEFT side of the red lake lumen similar to prior study. The enhancement [...] Unremarkable. DIVISION OF RADIOLOGY Provider, Magda Brower [facility] - 11/28/2024 * * *Final Report* * * DATE OF EXAM: Nov 28 2024 3:49PM [facility] 0530 - CT ABD/PEL W [...] endoluminal stenting. The maximal diameter of the [place] abdominal aorta is 6.0 x 6.0 cm. This is enlarged from prior dimensions of 5.4 x 5.6 cm. There is irregular contrast enhancement in the LEFT side of the red lake lumen similar to prior study. The enhancement [...] There has been interval enlargement of the red [place] lumen consistent with a hemodynamically significant leak. Enlargement pancreatic cystic mass. When condition permits suggest correlation with contrast enhanced pancreatic MRI. Diverticulosis Urinary bladder diverticulum. Whizzer Hand: [facility] Transcribe Date/Time: Nov 28 2024 4:21P Dictated by : TONE GA MD This examination was interpreted and the report reviewed and electronically signed by: TONE GA MD on Nov 28 2024 4:40PM EST [facility] Radiology Study observation (narrative) [facility] CT Abdomen and Pelvis W cont rast IVOrdered By: Ccf Provider on 11-28-2024 [facility] Carbon dioxide, total [Moles /volume] in Central venous bloodOrdered By: Nate Gray on 11-28-2024 CO2 [Moles/Vol] 24.5 mmol/L 21.0-32.0 [facility] Chloride assayOrdered By: Emory Gray on 11-28-2024 Chloride [Moles/Vol] 99 mmol/L 98-108 [facility] Comprehensive Metabolic Prof ilon 11-28-2024 Albumin [Mass/Vol] 4.0 g/dL Normal 3.4-4.8 [facility] Comment on above: Performed By: #### L 501.2450, L100.0100, BTS, L500.4050 #### [facility] [address] [place], [address] Albumin/Globulin [Mass ratio] 1.3 {ratio} Normal 0.9-2.4 [facility] Comment on above: Performed By: #### L 501.2450, L100.0100, BTS, L500.4050 #### [facility] [address] [place], [address] ALK PHOS 66 U/L Normal 40-129 [facility] Comment on above: Performed By: #### L 501.2450, L100.0100, BTS, L500.4050 #### [facility] [address] [place], [address] ALT [Catalytic activity/Vol] 24 U/L Normal <=46 [facility] Comment on above: Performed By: #### L 501.2450, L100.0100, BTS, L500.4050 #### [facility] [address] [place], [address] AST [Catalytic activity/Vol] 33 U/L Normal <=37 [facility] Comment on above: Performed By: #### L 501.2450, L100.0100, BTS, L500.4050 #### [facility] [address] [place], [address] Bilirubin [Mass/Vol] 0.47 mg/dL Normal 0.00-1.30 [facility] Comment on above: Performed By: #### L 501.2450, L100.0100, BTS, L500.4050 #### [facility] [address] [place], [address] BUN/CRE 26.9 RATIO High 10-20 [facility] Comment on above: Performed By: #### L 501.2450, L100.0100, BTS, L500.4050 #### [facility] [address] [place], [address] Calcium [Mass/Vol] 9.4 mg/dL Normal 7.6-11.0 [facility] Comment on above: Performed By: #### L 501.2450, L100.0100, BTS, L500.4050 #### [facility] [address] [place], [address] Chloride [Moles/Vol] 99 mmol/L Normal 98-108 [facility] Comment on above: Performed By: #### L 501.2450, L100.0100, BTS, L500.4050 #### [facility] [address] [place], [address] CO2 [Moles/Vol] 24.5 mmol/L Normal 21.0-32.0 [facility] Comment on above: Performed By: #### L 501.2450, L100.0100, BTS, L500.4050 #### [facility] [address] [place], [address] Creatinine [Mass/Vol] 1.43 mg/dL High 0.70-1.20 [facility] Comment on above: Performed By: #### L 501.2450, L100.0100, BTS, L500.4050 #### [facility] [address] [place], [address] ECRCL 37.20 ml/min Low 50-250 [facility] Comment on above: Performed By: #### L 501.2450, L100.0100, BTS, L500.4050 #### [facility] [address] [place], [address] GAP 13 Normal 5-15 [facility] Comment on above: Performed By: #### L 501.2450, L100.0100, BTS, L500.4050 #### [facility] [address] [place], [address] GFR/1.73 sq M.predicted among non-blacks MDRD (S/P/Bld) [Vol rate/Area] 48 mL/min/{1.73_m2} Low >60 [facility] Comment on above: Result Comment: mL/m in/1.73m2 CKD-EPI Creatinine Equation (2020) Performed By: #### L 501.2450, L100.0100, BTS, L500.4050 #### [facility] [address] [place], [address] Globulin (S) [Mass/Vol] 3.2 g/dL Normal 2.2-4.2 [facility] Comment on above: Performed By: #### L 501.2450, L100.0100, BTS, L500.4050 #### [facility] [address] [place], [address] Glucose [Mass/Vol] 140 mg/dL High 70-99 [facility] Comment on above: Performed By: #### L 501.2450, L100.0100, BTS, L500.4050 #### [facility] [address] [place], [address] Potassium [Moles/Vol] 4.0 mmol/L Normal 3.3-5.1 [facility] Comment on above: Performed By: #### L 501.2450, L100.0100, BTS, L500.4050 #### [facility] [address] [place], [address] Sodium [Moles/Vol] 137 mmol/L Normal 133-145 [facility] Comment on above: Performed By: #### L 501.2450, L100.0100, BTS, L500.4050 #### [facility] [address] [place], [address] T PROT 7.2 g/dL Normal 5.9-8.4 [facility] Comment on above: Performed By: #### L 501.2450, L100.0100, BTS, L500.4050 #### [facility] [address] [place], [address] Urea nitrogen [Mass/Vol] 39 mg/dL High 4-19 [facility] Comment on above: Performed By: #### L 501.2450, L100.0100, BTS, L500.4050 #### [facility] [address] [place], [address] Comprehensive metabolic 2000 panelon 11-28-2024 Albumin [Mass/Vol] 3.6 g/dL Low 3.9-4.9 [facility] Comment on above: Order Comment: Speci men Type: BLOOD SPECIMENOrdering Facility: [facility] Address: [address] [place] [address] Performed By: #### 3 024-7, 50079-7, HSTNT, 6-3 ####[facility] [id number] [place] [address] [place] ALP [Catalytic activity/Vol] 66 U/L Normal 38-113 [facility] Comment on above: Order Comment: Speci men Type: BLOOD SPECIMENOrdering Facility: [facility] Address: [address] [place] [address] Performed By: #### 3 024-7, 30360-3, HSTNT, 3016-3 ####[facility] [id number] [place] [address] [place] ALT [Catalytic activity/Vol] 21 U/L Normal 10-54 [facility] Comment on above: Order Comment: Speci men Type: BLOOD SPECIMENOrdering Facility: [facility] Address: [address] [place] [address] Performed By: #### 3 024-7, 72509-1, HSTNT, 6-3 ####[facility] [id number] [address] [address] [place] Anion gap [Moles/Vol] 10 mmol/L Normal 8-15 [facility] Comment on above: Order Comment: Speci men Type: BLOOD SPECIMENOrdering Facility: [facility] Address: [address] [place] [address] Performed By: #### 3 024-7, 20594-3, HSTNT, 3016-3 ####[facility] [id number] [place] [address] [place] AST [Catalytic activity/Vol] 24 U/L Normal 14-40 [facility] Comment on above: Order Comment: Speci men Type: BLOOD SPECIMENOrdering Facility: [facility] Address: [address] [place] [address] Performed By: #### 3 024-7, 84118-7, HSTNT, 6-3 ####[facility] [id number] [place] [address] [place] Bilirubin [Mass/Vol] 0.3 mg/dL Normal 0.2-1.3 [facility] Comment on above: Order Comment: Speci men Type: BLOOD SPECIMENOrdering Facility: [facility] Address: [address] [place] [address] Performed By: #### 3 024-7, 85861-0, HSTNT, 3015-3 ####[facility] [id number] [place] [address] [place] Calcium [Mass/Vol] 8.8 mg/dL Normal 8.5-10.2 [facility] Comment on above: Order Comment: Speci men Type: BLOOD SPECIMENOrdering Facility: [facility] Address: [address] [place] [address] Performed By: #### 3 024-7, 01227-8, HSTNT, 3015-3 ####[facility] [id number] [place] [id number] [place] Chloride [Moles/Vol] 102 mmol/L Normal 98-107 [facility] Comment on above: Order Comment: Speci men Type: BLOOD SPECIMENOrdering Facility: [facility] Address: [address] [place] [address] Performed By: #### 3 024-7, 82545-8, HSTNT, 6-3 ####[facility] [id number] [place] [address] [place] CO2 [Moles/Vol] 26 mmol/L Normal 22-30 [facility] Comment on above: Order Comment: Speci men Type: BLOOD SPECIMENOrdering Facility: [facility] Address: [address] [place] [address] Performed By: #### 3 024-7, 91124-4, HSTNT, 3015-3 ####[facility]IA [id number] [place] [address] [place] Creatinine [Mass/Vol] 1.56 mg/dL High 0.73-1.22 [facility] Comment on above: Order Comment: Speci men Type: BLOOD SPECIMENOrdering Facility: [facility] Address: [address] [place] [address] Performed By: #### 3 024-7, 57693-3, HSTNT, 3015-3 ####[facility] [id number] [place] [address] [place] Creatinine and Glomerular filtration rate.predicted panel (S/P/Bld) 44 mL/min/1.73m??? Low >=60 [facility] Comment on above: Order Comment: Speci men Type: BLOOD SPECIMENOrdering Facility: [facility] Address: [address] [place] [address] Result Comment: Keara mated Glomerular Filtration Rate [...] actual GFR. Performed By: #### 3 024-7, 70155-4, HSTNT, 3015-3 ####[facility] [id number] [address] [address] [place] Glucose [Mass/Vol] 120 mg/dL High 74-99 [facility] Comment on above: Order Comment: Speci men Type: BLOOD SPECIMENOrdering Facility: [facility] Address: [address] [place] [address] Result Comment: The [place] Diabetes Association (ADA) provides guidance for cutoff [...] Standards of Medical Care in Diabetes 2016, [place] [employer]. Diabetes Care. 2016.39(Suppl 1). Performed By: #### 3 024-7, 48594-4, HSTNT, 3016-3 ####[facility] [id number] [place] [address] [place] Protein [Mass/Vol] 6.3 g/dL Normal 6.3-8.0 [facility] Comment on above: Order Comment: Ian men Type: BLOOD SPECIMENOrdering Facility: [facility] Address: [address] [place] [address] Performed By: #### 3 024-7, 13869-7, HSTNT, 3016-3 ####[facility] [id number] [place] [address] [place] Sodium [Moles/Vol] 138 mmol/L Normal 136-144 [facility] Comment on above: Order Comment: Speci men Type: BLOOD SPECIMENOrdering Facility: [facility] Address: [address] [place] [address] Performed By: #### 3 024-7, 84296-1, HSTNT, 3016-3 ####[facility] [id number] [place] [address] [place] Urea nitrogen [Mass/Vol] 41 mg/dL High 9-24 [facility] Comment on above: Order Comment: Speci men Type: BLOOD SPECIMENOrdering Facility: [facility] Address: [address] [address] [address] [place] [address] Performed By: #### 3 024-7, 54247-6, HSTNT, 3016-3 ####[facility] [id number] [place] [address] [place] ECG COMPLETEon 11-28-2024 ECG COMPLETE Normal [facility] ECHO LIMITEDon 11-28-2024 ECHO LIMITED Normal [facility] Emergency Department Summary on 11-28-2024 Emergency Department Summary [facility] Medical Records Department [address] [place] [address] Emergency Department Summary 11/28/24 MR#: [id number] Acct: [id number] Name: LEANA CAMEJO Rep #: [id number] : 1940 84 From: Nate Gray MD [...] for 5 days and was seen by [facility] care physician's office yesterday. They did a [...] (From Allergy Other Verified 11/28/24 17:53 Crestor) Ghxojnn-AFG-BzS Reductase Allergy Other Verified 11/28/24 17:53 Inhibitor (Jqesvhj-Xvu-Gjh Reductase Inhibitor) Family History Father Lung cancer [...] dysuria. Constitutio (more content not included)... Normal [facility] Eosinophil percentageOrdered By: Nate Gray on 11-28-2024 Eosinophils/100 WBC (Bld) 1.6 % 0-5 [facility] Epithelial cells.squamous LM Ql (Urine sed)Ordered By: Nate Gray on 11-28-2024 Epithelial cells.squamous LM.HPF (Urine sed) [#/Area] 0 /[HPF] 0-5 [facility] Erythrocyte distribution wid th ratioOrdered By: Nate Gray on 11-28-2024 Erythrocyte distribution width (RBC) [Ratio] 14.9 % High 11.6-14.6 [facility] Erythrocyte distribution wid th standard deviationOrdered By: Nate Gray on 11-28-2024 Erythrocyte distribution width (RBC) [Entitic vol] 51.1 fL High 35.1-43.9 [facility] Erythrocyte distribution width (RBC) [Ratio] 51.1 fl High 35.1-43.9 [facility] Erythrocyte morphology asses smentOrdered By: Nate Gray on 11-28-2024 RBC morphology finding Nom (Bld) N CHROM NORMAL NORM C&C [facility] Estimation of creatinine maira aranceOrdered By: Nate Gray on 11-28-2024 Estimated Creatinine Clearance Calc 37.20 ml/min Low 50-250 [facility] GFR/1.73 sq M.predicted gabi g non-blacks MDRD (S/P/Bld) [Vol rate/Area]Ordered By: Nate Gray on 11-28-2024 Estimated GFR (MDRD) Non-Af Amer 48 Low >60 [facility] Comment on above: mL/min/1.73m2 CKD-EP I Creatinine Equation (2020) Gas + CO Pnl BldVon 11-29-19 25 Potassium [Moles/Vol] 4.2 mmol/L Normal 3.7-5.1 [facility] Comment on above: Order Comment: Speci men Type: VENOUS BLOOD SPECIMENOrdering Facility: [facility] Address: [address] [place] [address] Performed By: #### 2 4344-4 ####[facility] [id number] [address] [place] Order Comment: Speci men Type: BLOOD SPECIMENOrdering Facility: [facility] Address: [address] [place] [address] Performed By: #### 3 024-7, 86278-3, HSTNT, 3016-3 ####[facility] [id number] [address] [place] Gas and Carbon monoxide pane l (BldV)on 11-28-2024 Base excess Calc (BldV) [Moles/Vol] 4 mmol/L High 0-2 [facility] Comment on above: Order Comment: Speci men Type: VENOUS BLOOD SPECIMENOrdering Facility: [facility] Address: [address] [place] [address] Performed By: #### 2 4344-4 ####[facility] [id number] [place] [address] [place] Body temperature 98.6 [degF] Normal [facility] Comment on above: Order Comment: Speci men Type: VENOUS BLOOD SPECIMENOrdering Facility: [facility] Address: [address] [place] [address] Performed By: #### 2 4344-4 ####[facility]IA [id number] [place] [address] [place] Calcium.ionized (Bld) [Mass/Vol] 1.24 mmol/L Normal 1.08-1.30 [facility] Comment on above: Order Comment: Speci men Type: VENOUS BLOOD SPECIMENOrdering Facility: [facility] Address: [address] [place] [address] Performed By: #### 2 4344-4 ####[facility] [id number] [place] [address] [place] Calcium.ionized adjusted to pH 7.4 (BldA) [Moles/Vol] 1.25 mmol/L Normal 1.08-1.30 [facility] Comment on above: Order Comment: Speci men Type: VENOUS BLOOD SPECIMENOrdering Facility: [facility] Address: [address] [place] [address] Performed By: #### 2 4344-4 ####[facility]IA [id number] [place] [address] [place] Carboxyhemoglobin (BldV) [Mass fraction] 1.6 % Normal 0.0-2.0 [facility] Comment on above: Order Comment: Speci men Type: VENOUS BLOOD SPECIMENOrdering Facility: [facility] Address: [address] [place] [address] Result Comment: Carb oxyhemoglobin Reference Range for Smokers: 2.0-8.0% Performed By: #### 2 4344-4 ####[facility] LABIA [id number] [address] [id number] [address] [place] CO2 (BldV) [Partial pressure] 44 mm[Hg] Normal 42-55 [facility] Comment on above: Order Comment: Speci men Type: VENOUS BLOOD SPECIMENOrdering Facility: [facility] Address: [address] [place] [address] Performed By: #### 2 4344-4 ####[facility]CL[facility] [id number] [place] [address] [place] Glucose [Mass/Vol] 119 mg/dL High 60-105 [facility] Comment on above: Order Comment: Speci men Type: VENOUS BLOOD SPECIMENOrdering Facility: [facility] Address: [address] [place] [address] Performed By: #### 2 4344-4 ####[facility]CL[facility] [id number] [place] [id number] [place] HCO3 (Bld) [Moles/Vol] 28 mmol/L Normal 24-28 [facility] Comment on above: Order Comment: Speci men Type: VENOUS BLOOD SPECIMENOrdering Facility: [facility] Address: [address] [place] [address] Performed By: #### 2 4344-4 ####[facility]CL[facility] [id number] [place] [id number] [place] Hematocrit (Bld) [Volume fraction] 35.6 % Low 39.0-51.0 [facility] Comment on above: Order Comment: Speci men Type: VENOUS BLOOD SPECIMENOrdering Facility: [facility] Address: [address] [place] [address] Performed By: #### 2 4344-4 ####[facility]CL[facility] [id number] [place] [id number] [place] Hemoglobin (Bld) [Mass/Vol] 11.5 g/dL Low 13.0-17.0 [facility] Comment on above: Order Comment: Speci men Type: VENOUS BLOOD SPECIMENOrdering Facility: [facility] Address: [address] [place] [address] Performed By: #### 2 4344-4 ####[facility] [id number] [place] [id number] [place] Lactate [Moles/Vol] 0.9 mmol/L Normal 0.5-2.2 [facility] Comment on above: Order Comment: Speci men Type: VENOUS BLOOD SPECIMENOrdering Facility: [facility] Address: [address] [place] [address] Performed By: #### 2 4344-4 ####[facility] LABIA [id number] [place] [address] [place] LITERS 3 Liters/min Normal [facility] Comment on above: Order Comment: Speci men Type: VENOUS BLOOD SPECIMENOrdering Facility: [facility] Address: [address] [place] [address] Performed By: #### 2 4344-4 ####[facility]CL[facility] [id number] [place] [id number] [place] Methemoglobin (Bld) [Mass fraction] 0.7 % Normal 0.0-1.5 [facility] Comment on above: Order Comment: Speci men Type: VENOUS BLOOD SPECIMENOrdering Facility: [facility] Address: [address] [place] [address] Performed By: #### 2 4344-4 ####[facility] LABIA [id number] [place] [id number] [place] O2 THERAPY NC = Nasal Cannula Normal [facility] Comment on above: Order Comment: Speci men Type: VENOUS BLOOD SPECIMENOrdering Facility: [facility] Address: [address] [place], [place] [address] Performed By: #### 2 4344-4 ####[facility] LABIA [id number] [address] [id number], [place] [address] [place] Oxygen (BldV) [Partial pressure] 53 mm[Hg] High 35-45 [facility] Comment on above: Order Comment: Speci men Type: VENOUS BLOOD SPECIMENOrdering Facility: [facility] Address: [address] [place], [place] [address] Performed By: #### 2 4344-4 ####[facility]CL[facility] [id number] [address] [address] [place] Oxygen saturation in Venous blood 88 % High 60-85 [facility] Comment on above: Order Comment: Speci men Type: VENOUS BLOOD SPECIMENOrdering Facility: [facility] Address: [address] [place] [address] Performed By: #### 2 4344-4 ####[facility]CL[facility] [id number] [address] [address] [place] Oxyhemoglobin (BldV) [Mass fraction] 86 % High 60-85 [facility] Comment on above: Order Comment: Speci men Type: VENOUS BLOOD SPECIMENOrdering Facility: [facility] Address: [address] [place], [place] [address] Performed By: #### 2 4344-4 ####[facility]CL[facility] [id number] [address] [address] [place] pH (BldV) 7.42 [pH] Normal 7.32-7.42 [facility] Comment on above: Order Comment: Speci men Type: VENOUS BLOOD SPECIMENOrdering Facility: [facility] Address: [address] [place], [place] [address] Performed By: #### 2 4344-4 ####[facility]CL[facility] [id number] [address] [address] [place] Sodium [Moles/Vol] 137 mmol/L Normal 136-144 [facility] Comment on above: Order Comment: Speci men Type: VENOUS BLOOD SPECIMENOrdering Facility: [facility] Address: [address] [place], [place] [address] Performed By: #### 2 4344-4 ####[facility]CL[facility] [id number] [place] [address] [place] Glomerular filtration rate ( GFR) estimation/1.73 sq m using serum, plasma, or whole bOrdered By: Nate Gray on 11-28-2024 GFR/1.73 sq M.predicted among non-blacks MDRD (S/P/Bld) [Vol rate/Area] 48 mL/min/{1.73_m2} Low >60 [facility] Comment on above: mL/min/1.73m2 CKD-EP I Creatinine Equation (2020) Glucose Ql (U)Ordered By: Emory Gray on 11-28-2024 Urine Glucose (UA) Normal mg/dl Normal [facility] HIGH SENSITIVITY TROPONIN To n 11-28-2024 Troponin T.cardiac High sensitivity method [Mass/Vol] 131 ng/L High <12 [facility] Comment on above: Order Comment: Speci men Type: BLOOD SPECIMENOrdering Facility: [facility] Address: [address] [place] [address] Performed By: #### 3 024-7, 59151-2, HSTNT, 3016-3 ####[facility] LABIA [id number] [place] [address] [place] HISTORY PHYSICALon 5 HISTORY PHYSICAL Normal [facility] HIV 1+2 Ab IA Qlon 5 HIV 1 and 2 Ab IA.rapid Nom (S/P/Bld) Normal [facility] Comment on above: Order Comment: Speci men Type: BLOOD SPECIMENOrdering Facility: [facility] Address: [address] [place] [address] Result Comment: Test not indicated. Performed By: #### 3 1201-7, 12747-1 ####[facility] LABIA [id number] [place] [address] [place] HIV 1+2 Ab+HIV1 p24 Ag IA Ql Non-Reactive Normal Nonreactive [facility] Comment on above: Order Comment: Speci men Type: BLOOD SPECIMENOrdering Facility: [facility] Address: [address] [place] [address] Performed By: #### 3 1201-7, 03737-7 ####[facility]CLIA [id number] [place] [address] [place] HIV immunoassay testing algorithm interpretation (S/P/Bld) [Interp] Normal [facility] Comment on above: Order Comment: Speci men Type: BLOOD SPECIMENOrdering Facility: [facility] Address: [address] [place] [address] Result Comment: No e vidence of HIV-1 or HIV-2 infection. Should recent infection be suspected, repeat testing may be considered 2-3 weeks after this draw.[place] Rev. Code 3701.243(E): This information has been [...] or diagnoses. Performed By: #### 3 1201-7, 77431-4 ####[facility] LABCLIA [id number] [place] [address] [place] Hematocrit Auto (Bld) [Volum e fraction]Ordered By: Nate Gray on 11-28-2024 Hematocrit (Bld) [Volume fraction] 38.5 % Low 40-54 [facility] Hemoglobin measurementOrdere d By: Nate Gray on 11-28-2024 Hemoglobin (Bld) [Mass/Vol] 12.4 g/dL Low 13.0-16.5 [facility] Immature granulocytes/100 WB C Auto (Bld)Ordered By: Nate Gray on 11-28-2024 Immature granulocytes/100 WBC (Bld) 0.400 % 0.0-0.9 [facility] Comment on above: IG% - Immature Granu locytes (promyelocytes, myelocytes and metamyelocytes) > 1% indicates that a LEFT SHIFT is Present. Ketones Test strip Ql (U)Ord ered By: Nate Gray on 11-28-2024 Ketones Ql (U) Negative Negative [facility] - Chemistry and C hemistry - challengeOrdered By: Nate Gray on 11-28-2024 AST [Catalytic activity/Vol] 33 U/L <38 [facility] - Hematology and Cell countsOrdered By: Nate Gray on 11-28-2024 Anisocytosis Ql (Bld) RARE [facility] Lipaseon 11-28-2024 Lipase [Catalytic activity/Vol] 38 U/L Normal 13-75 [facility] Comment on above: Result Comment: Verona rose note: LIPASE revised reference range effective 22. New Lipase methodology. Expected to produce lower values than the previous assay method. NEW Reference Range: 13 - 75 U/L Performed By: #### L 501.2450, L100.0100, BTS, L500.4050 #### [facility] [address] [place], [address] Lipase measurementOrdered By : Nate Gray on 11-28-2024 Lipase [Catalytic activity/Vol] 38 U/L 13-75 [facility] Comment on above: Please note:LIPASE r evised reference range effective 22. New Lipase methodology. Expected to produce lower values than the previous assay method. NEW Reference Range: 13 - 75 U/L Lymphocytes Auto (Unsp spec) [#/Vol]Ordered By: Nate Gray on 11-28-2024 Lymphocytes (Bld) [#/Vol] 0.86 10*3/uL 0.83-4.51 [facility] Lymphocytes/100 WBC Auto (Un sp spec)Ordered By: Nate Gray on 11-28-2024 Lymphocytes/100 WBC (Bld) 17.0 % Low 19-41 [facility] MCV (mean corpuscular volume ) determinationOrdered By: Nate Gray on 11-28-2024 MCV (RBC) [Entitic vol] 92.8 fL 80-94 [facility] Macrocytes Ql (Bld)Ordered B y: Nate Gray on 11-28-2024 Macrocytosis RARE [facility] Macrocytes detectionOrdered By: Nate Gray on 11-28-2024 Macrocytes Ql (Bld) RARE [facility] Manual differential comment Juvenal (Bld) [Interp]Ordered By: Nate Gray on 11-28-2024 Differential Comment SEE COMMENT [facility] Comment on above: THROMBOCYTOPENIA NOT ED Mean corpuscular hemoglobin (MCH) determinationOrdered By: Nate Gray on 11-28-2024 MCH (RBC) [Entitic mass] 29.9 pg 27.0-32.0 [facility] Mean corpuscular hemoglobin concentration (MCHC) determinationOrdered By: Nate Gray on 11-28-2024 MCHC (RBC) [Mass/Vol] 32.2 g/dL 32-36 [facility] Mean platelet volume determi nationOrdered By: Nate Gray on 11-28-2024 Platelet mean volume (Bld) [Entitic vol] 10.4 fL 6.2-12.0 [facility] Microscopic analysis of urin e for red blood cells (RBC)Ordered By: Nate Gray on 11-28-2024 Microscopic analysis of urine for red blood cells (RBC) 0-5 SEEN /hpf 0-5 [facility] Urine RBC 0-5 SEEN /hpf 0-5 [facility] Monocyte percentageOrdered B y: Nate Gray on 11-28-2024 Monocytes/100 WBC (Bld) 9.1 % 0-10 [facility] Mucus LM Ql (Urine sed)Order ed By: Nate Gray on 11-28-2024 Mucus Ql (Urine sed) 0 SEEN /hpf [facility] Neutrophil percentageOrdered By: Nate Gray on 11-28-2024 Neutrophils/100 WBC (Bld) 71.3 % High 47-70 [facility] Nitrite Test strip Ql (U)Ord ered By: Nate Gray on 11-28-2024 Nitrite Ql (U) Negative Negative [facility] Nucleated red blood cell per centageOrdered By: Nate Gray on 11-28-2024 Nucleated RBC/100 WBC (Bld) [Ratio] 0 % 0-5 [facility] Platelet countOrdered By: Emory Gray on 11-28-2024 Platelets (Bld) [#/Vol] 93 10*3/uL Low 150-450 [facility] Platelet estimateOrdered By: Nate Gray on 11-28-2024 Platelets LM Ql (Bld) MOD DEC ADEQ [facility] Platelets LM Ql (Bld)Ordered By: Nate Gray on 11-28-2024 Platelet Estimate MOD DEC ADEQ [facility] Potassium (Unsp spec) [Mass/ Vol]Ordered By: Nate Gray on 11-28-2024 Potassium [Moles/Vol] 4.0 mmol/L 3.3-5.1 [facility] Potassium measurement (mass/ volume)Ordered By: Nate Gray on 11-28-2024 Potassium (Unsp spec) [Mass/Vol] 4.0 mmol/L 3.3-5.1 [facility] Protein Test strip Ql (U)Ord ered By: Nate Gray on 11-28-2024 Protein Ql (U) 15 mg/dl High Negative [facility] RBC Auto (Bld) [#/Vol]Ordere d By: Nate Gray on 11-28-2024 RBC (Bld) [#/Vol] 4.15 10*6/uL Low 4.6-6.2 [facility] RBC morphology finding Nom ( Bld)Ordered By: Nate Gray on 11-28-2024 Red Blood Cell Morphology N CHROM NORMAL NORM C&C [facility] STAPHYLOCOCCUS AUREUS AND MR SA SCREEN, PCR, NASALon 11-28-2024 S. aureus and MRSA panel ELIZABETH+probe (Nose) Not detected Normal Not Detected [facility] Comment on above: Order Comment: Speci men Type: SWABOrdering Facility: [facility] Address: [address] [place] [address] Performed By: #### S APCR ####[facility] LABCLIA [id number] [place] [address] [place] Serum creatinine measurement (mass/volume)Ordered By: Nate Gray on 11-28-2024 Creatinine [Mass/Vol] 1.43 mg/dL High 0.70-1.20 [facility] Serum globulin measurementOr dered By: Nate Gray on 11-28-2024 Globulin (S) [Mass/Vol] 3.2 g/dL 2.2-4.2 [facility] Serum glucose measurement (m ass/volume)Ordered By: Nate Gray on 11-28-2024 Glucose [Mass/Vol] 140 mg/dL High 70-99 [facility] Serum or plasma alanine delgado otransferase (ALT) measurementOrdered By: Nate Gray on 11-28-2024 ALT [Catalytic activity/Vol] 24 U/L <47 [facility] Serum or plasma albumin jossie urement (mass/volume)Ordered By: Nate Gray on 11-28-2024 Albumin [Mass/Vol] 4.0 g/dL 3.4-4.8 [facility] Serum or plasma albumin/glob ulin mass ratioOrdered By: Nate Gray on 11-28-2024 Albumin/Globulin [Mass ratio] 1.3 {ratio} 0.9-2.4 [facility] Serum or plasma alkaline silas sphatase measurementOrdered By: Nate Gray on 11-28-2024 ALP [Catalytic activity/Vol] 66 U/L 40-129 [facility] Serum or plasma calcium jossie urement (mass/volume)Ordered By: Nate Gray on 11-28-2024 Calcium [Mass/Vol] 9.4 mg/dL 7.6-11.0 [facility] Serum or plasma urea nitroge n measurement (mass/volume)Ordered By: Nate Gray on 11-28-2024 Urea nitrogen [Mass/Vol] 39 mg/dL High 4-19 [facility] Sodium levelOrdered By: Nate Gray on 11-28-2024 Sodium [Moles/Vol] 137 mmol/L 133-145 [facility] Squamous epithelial cells de tection in urine sediment by light microscopyOrdered By: Nate Gray on 11-28-2024 Epithelial cells.squamous LM Ql (Urine sed) 0-5 SEEN /hpf 0-5 [facility] T4 Free SerPl-mCncon 025 Free T4 [Mass/Vol] 1.2 ng/dL Normal 0.9-1.7 [facility] Comment on above: Order Comment: Speci men Type: BLOOD SPECIMENOrdering Facility: [facility] Address: [address] [place] [address] Performed By: #### 3 024-7, 38159-1, HSTNT, 3016-3 ####[facility] LABCLIA [id number] [address] OF [facility] TSH SerPl-aCncon 11-28-2024 TSH Qn 9.100 m[IU]/L High 0.270-4.200 [facility] Comment on above: Order Comment: Speci men Type: BLOOD SPECIMENOrdering Facility: [facility] Address: [address] [place] [address] Performed By: #### 3 024-7, 33356-4, HSTNT, 3016-3 ####[facility] LABCLIA [id number] [address] TYPE + SCREENon 11-28-2024 ABO O Normal [facility] Comment on above: Order Comment: Speci men Type: BLOOD SPECIMENOrdering Facility: [facility] Address: [address] [place] [address] Performed By: #### T SCR ####[facility] BLOOD BANKCLIA [id number] [address] [place] Rh Nom (Bld) Negative Normal [facility] Comment on above: Order Comment: Speci men Type: BLOOD SPECIMENOrdering Facility: [facility] Address: [address] [place] [address] Performed By: #### T SCR ####[facility] BLOOD BANKIA [id number] [address] TYPE AND SCREEN EXPIRATION 12/01/2024 23:59 Normal [facility] Comment on above: Order Comment: Speci men Type: BLOOD SPECIMENOrdering Facility: [facility] Address: [address] [place] [address] Performed By: #### T SCR ####[facility] BLOOD BANKCLIA [id number] [place] [address] [place] Total proteinOrdered By: Troy Gray on 11-28-2024 Protein [Mass/Vol] 7.2 g/dL 5.9-8.4 [facility] Type AND Screenon 11-28-2024 ABO and Rh group Nom (Bld) Blood group O Rh(D) negative Normal [facility] Comment on above: Order Comment: A Performed By: #### L 501.2450, L100.0100, BTS, L500.4050 #### [facility] [address] [place], [address] Urinalysis, Completeon 11-28 EPI,SQUAMOUS 0-5 SEEN Normal 0-5 [facility] Comment on above: Order Comment: CLEAN CATCH Performed By: #### L 400.0001 ####[facility] [address] [place], [address] RBC 0-5 SEEN Normal 0-5 [facility] Comment on above: Order Comment: CLEAN CATCH Performed By: #### L 400.0001 ####[facility] [address] [place], [address] WBC 0-5 SEEN Normal 0-5 [facility] Comment on above: Order Comment: CLEAN CATCH Performed By: #### L 400.0001 ####[facility] [address] [place], [address] BACTERIA 0 SEEN Normal None Seen [facility] Comment on above: Order Comment: CLEAN CATCH Performed By: #### L 400.0001 ####[facility] [address] [place], [address] Mucus Ql (Urine sed) [address] [facility] Comment on above: Order Comment: CLEAN CATCH Performed By: #### L 400.0001 ####[facility] [address] [place], [address] Urine blood detectionOrdered By: Nate Gray on 11-28-2024 Urine Occult Blood Negative Negative [facility] Urine clarityOrdered By: Troy Gray on 11-28-2024 Clarity (U) Sl. Cloudy Clear [facility] Urine color determinationOrd ered By: Nate Gray on 11-28-2024 Color (U) Yellow Yellow [facility] Urine glucose detectionOrder ed By: Nate Gray on 11-28-2024 Glucose Ql (U) Normal mg/dl Normal [facility] Urine leukocyte esterase det ection by dipstickOrdered By: Nate Gray on 11-28-2024 Leukocyte esterase Test strip Ql (U) Negative Negative [facility] Urine pHOrdered By: Nate vasques on 11-28-2024 pH (U) 6.5 [pH] 5.0 - 8.0 [facility] Urine sediment bacteria coun t by microscopy (number/high power field)Ordered By: Nate Gray on 11-28-2024 Bacteria LM.HPF (Urine sed) [#/Area] 0 /[HPF] None Seen [facility] Urine specific gravity measu rementOrdered By: Nate Gray on 11-28-2024 Specific gravity (U) [Rel density] 1.010 1.002-1.030 [facility] Urine urobilinogen measureme ntOrdered By: Nate Gray on 11-28-2024 Urobilinogen Ql (U) Normal mg/dl Normal [facility] Urobilinogen Ql (U)Ordered B y: Nate Gray on 11-28-2024 Urine Urobilinogen Normal mg/dl Normal [facility] White blood cell (WBC) count Ordered By: Nate Gray on 11-28-2024 WBC (Bld) [#/Vol] 5.1 10*3/uL 4.4-11.0 [facility] White blood cell countOrdere d By: Nate Gray on 11-28-2024 Urine WBC 0-5 SEEN /hpf 0-5 [facility] White blood cell count 0-5 SEEN /hpf 0-5 [facility] XR CHEST 1V FRONTAL PORTon 0 11-28-2024 XR CHEST 1V FRONTAL PORT Normal [facility] Bacteria Ur Culton Bacteria identified Cx Nom (U) ORGANISM ID: 1 <10,000 CFU/ml Normal urogenital heather Normal [facility] Comment on above: Performed By: #### 6 30-4 ####[facility] LABCLIA [id number] [place] [address] [place] Basic metabolic 2000 panelOr dered By: Lucille Glover on 11-27-2024 Anion gap [Moles/Vol] 10 mmol/L 8 - 15 mmol/L [facility] Calcium [Mass/Vol] 9.2 mg/dL 8.5 - 10. 2 mg/dL [facility] Chloride [Moles/Vol] 103 mmol/L 98 - 10 7 mmol/L [facility] CO2 [Moles/Vol] 26 mmol/L 22 - 30 mmol/L [facility] Creatinine [Mass/Vol] 1.26 mg/dL High 0.73 - 1.22 mg/dL [facility] GFR/1.73 sq M.predicted among non-blacks MDRD (S/P/Bld) [Vol rate/Area] 56 mL/min/{1.73_m2} Low - PINF [facility] Comment on above: Estimated Glomerular Filtration Rate [...] 104 mg/dL High 74 - 99 mg/dL [facility] Comment on above: The [place] Diabete s Association (ADA) provides guidance for [...] Standards of Medical Care in Diabetes 2016, [place] Diabetes Association. Diabetes Care. 2016.39(Suppl 1). Interpretation and review of laboratory results Abnormal [facility] Potassium [Moles/Vol] 4.1 mmol/L 3.7 - 5.1 mmol/L [facility] Sodium [Moles/Vol] 139 mmol/L 136 - 144 mmol/L [facility] Urea nitrogen [Mass/Vol] 35 mg/dL High 9 - 24 mg/dL [facility] Basic metabolic 2000 panelon 11-27-2024 Anion gap [Moles/Vol] 10 mmol/L Normal 8-15 [facility] Comment on above: Order Comment: Speci men Type: BLOOD SPECIMENOrdering Facility: [facility] Address: [address] [place] [address] Performed By: #### 2 4321-2 ####[facility] LAUREEN MILLTOWNCLIA [id number] [place] [address] [place] Calcium [Mass/Vol] 9.2 mg/dL Normal 8.5-10.2 [facility] Comment on above: Order Comment: Speci men Type: BLOOD SPECIMENOrdering Facility: [facility] Address: [address] [place] [address] Performed By: #### 2 4321-2 ####[facility] MILLTOWNCLIA [id number] [place] [address] [place] Chloride [Moles/Vol] 103 mmol/L Normal 98-107 [facility] Comment on above: Order Comment: Speci men Type: BLOOD SPECIMENOrdering Facility: [facility] Address: [address] [place] [address] Performed By: #### 2 4321-2 ####[facility] MILLTOWNCLIA [id number] [place] [address] [place] CO2 [Moles/Vol] 26 mmol/L Normal 22-30 [facility] Comment on above: Order Comment: Speci men Type: BLOOD SPECIMENOrdering Facility: [facility] Address: [address] [place] [address] Performed By: #### 2 4321-2 ####[facility] LAUREEN MILLTOWNCLIA [id number] [place] [address] [place] Creatinine [Mass/Vol] 1.26 mg/dL High 0.73-1.22 [facility] Comment on above: Order Comment: Ian lassiter Type: BLOOD SPECIMENOrdering Facility: [facility] Address: [address] [place] [address] Performed By: #### 2 4321-2 ####[facility] [id number] [place] [address] [place] Creatinine and Glomerular filtration rate.predicted panel (S/P/Bld) 56 mL/min/1.73m??? Low >=60 [facility] Comment on above: Order Comment: Ian lassiter Type: BLOOD SPECIMENOrdering Facility: [facility] Address: [address] [place] [address] Result Comment: Keara mated Glomerular Filtration Rate [...] actual GFR. Performed By: #### 2 4321-2 ####[facility] [id number] [place] [address] [place] Glucose [Mass/Vol] 104 mg/dL High 74-99 [facility] Comment on above: Order Comment: Ian lassiter Type: BLOOD SPECIMENOrdering Facility: [facility] Address: [address] [place] [address] Result Comment: The [place] Diabetes Association (ADA) provides guidance for cutoff [...] Standards of Medical Care in Diabetes 2016, [place] Diabetes Association. Diabetes Care. 2016.39(Suppl 1). Performed By: #### 2 4321-2 ####[facility] SIERRAPHILADELPHIACHARLYLIA [id number] [place] [address] [place] Potassium [Moles/Vol] 4.1 mmol/L Normal 3.7-5.1 [facility] Comment on above: Order Comment: Speci men Type: BLOOD SPECIMENOrdering Facility: [facility] Address: [address] [place] [address] Performed By: #### 2 4321-2 ####[facility] [id number] [place] [address] [place] Sodium [Moles/Vol] 139 mmol/L Normal 136-144 [facility] Comment on above: Order Comment: Speci men Type: BLOOD SPECIMENOrdering Facility: [facility] Address: [address] [place] [address] Performed By: #### 2 4321-2 ####[facility] [id number] [place] [address] [place] Urea nitrogen [Mass/Vol] 35 mg/dL High 9-24 [facility] Comment on above: Order Comment: Speci men Type: BLOOD SPECIMENOrdering Facility: [facility] Address: [address] [place] [address] Performed By: #### 2 4321-2 ####[facility] [id number] [place] [address] [place] CBC panel Auto (Bld)on 11-27 Erythrocyte distribution width (RBC) [Ratio] 15 % 11.5 - 15.0 % [facility] Hematocrit (Bld) [Volume fraction] 37.7 % Low 39.0 - 51.0 % [facility] Hemoglobin (Bld) [Mass/Vol] 12.2 g/dL Low 13.0 - 17.0 g/dL [facility] Interpretation and review of laboratory results Abnormal [facility] MCH (RBC) [Entitic mass] 30.2 pg 26.0 - 34.0 pg [facility] MCHC (RBC) [Mass/Vol] 32.4 g/dL 30.5 - 36.0 g/dL [facility] MCV (RBC) [Entitic vol] 93.3 fL 80.0 - 100.0 fL [facility] Nucleated RBC (Bld) [#/Vol] NINF [facility] Platelet mean volume (Bld) [Entitic vol] 10.7 fL 9.0 - 12.7 fL [facility] Platelets (Bld) [#/Vol] 91 10*3/uL Low [facility] Comment on above: No clot detected. RBC (Bld) [#/Vol] 4.04 10*6/uL Low 4.20 - 6.0 0 m/uL [facility] WBC (Bld) [#/Vol] 5.57 10*3/uL [facility] Erythrocyte distribution width (RBC) [Ratio] 15.0 % Normal 11.5-15.0 [facility] Comment on above: Order Comment: Speci men Type: BLOOD SPECIMENOrdering Facility: [facility] Address: [address] [place] [address] Performed By: #### 5 8410-2 ####[facility] [id number] [place] [address] [place] Hematocrit (Bld) [Volume fraction] 37.7 % Low 39.0-51.0 [facility] Comment on above: Order Comment: Speci men Type: BLOOD SPECIMENOrdering Facility: [facility] Address: [address] [place], [place] [address] Performed By: #### 5 8410-2 ####[facility] [id number] [place] [address] [place] Hemoglobin (Bld) [Mass/Vol] 12.2 g/dL Low 13.0-17.0 [facility] Comment on above: Order Comment: Speci men Type: BLOOD SPECIMENOrdering Facility: [facility] Address: [address] [place] [address] Performed By: #### 5 8410-2 ####[facility] CAROL ANNA [id number] [address] [place] [facility] MCH (RBC) [Entitic mass] 30.2 pg Normal 26.0-34.0 [facility] Comment on above: Order Comment: Speci men Type: BLOOD SPECIMENOrdering Facility: [facility] Address: [address] [place] [address] Performed By: #### 5 8410-2 ####[facility] ERCHARLYNila [id number] [place] [address] [place] MCHC (RBC) [Mass/Vol] 32.4 g/dL Normal 30.5-36.0 [facility] Comment on above: Order Comment: Speci men Type: BLOOD SPECIMENOrdering Facility: [facility] Address: [address] [place] [address] Performed By: #### 5 8410-2 ####[facility] [id number] [place] [address] [place] MCV (RBC) [Entitic vol] 93.3 fL Normal 80.0-100.0 [facility] Comment on above: Order Comment: Speci men Type: BLOOD SPECIMENOrdering Facility: [facility] Address: [address] [place] [address] Performed By: #### 5 8410-2 ####[facility] ERCHARLYLIA [id number] [place] [address] [place] Nucleated RBC (Bld) [#/Vol] 10*3/uL Normal <0.01 [facility] Comment on above: Order Comment: Speci men Type: BLOOD SPECIMENOrdering Facility: [facility] Address: [address] [place] [address] Performed By: #### 5 8410-2 ####[facility] [id number] [place] [address] [place] Platelet mean volume (Bld) [Entitic vol] 10.7 fL Normal 9.0-12.7 [facility] Comment on above: Order Comment: Speci men Type: BLOOD SPECIMENOrdering Facility: [facility] Address: [address] [place] [address] Performed By: #### 5 8410-2 ####[facility] ERNCLIA [id number] [place] [address] [place] Platelets (Bld) [#/Vol] 91 10*3/uL Low 150-400 [facility] Comment on above: Order Comment: Speci men Type: BLOOD SPECIMENOrdering Facility: [facility] Address: [address] [place] [address] Result Comment: No c lot detected. Performed By: #### 5 8410-2 ####[facility] ERNCLIA [id number] [place] [address] [place] RBC (Bld) [#/Vol] 4.04 10*6/uL Low 4.20-6.00 [facility] Comment on above: Order Comment: Speci men Type: BLOOD SPECIMENOrdering Facility: [facility] Address: [address] [place] [address] Performed By: #### 5 8410-2 ####[facility] ERNCLIA [id number] [place] [address] [place] WBC (Bld) [#/Vol] 5.57 10*3/uL Normal 3.70-11.00 [facility] Comment on above: Order Comment: Speci men Type: BLOOD SPECIMENOrdering Facility: [facility] Address: [address] [place] [address] Performed By: #### 5 8410-2 ####[facility] ERNCLIA [id number] [place] [address] [place] CNOVon 11-27-2024 CNOV Normal [facility] Lipase SerPl-cCncon 11-28-19 25 Lipase [Catalytic activity/Vol] 28 U/L Normal 16-61 [facility] Comment on above: Order Comment: Speci men Type: BLOOD SPECIMENOrdering Facility: [facility] Address: [address] [place] [address] Performed By: #### 3 040-3, 45064-8, 69959-4 ####[facility] LABCLIA [id number] [place] [address] [place] Lipid 1996 panelon Cholesterol [Mass/Vol] 169 mg/dL Normal <200 [facility] Comment on above: Order Comment: Speci men Type: BLOOD SPECIMENOrdering Facility: [facility] Address: [address] [place] [address] Result Comment: <200 mg/dL, Desirable 200-239 mg/dL, Borderline high>239 mg/dL, High Performed By: #### 3 040-3, 39079-5, 17448-1 ####[facility] LABCLIA [id number] [address] [place] Cholesterol in HDL [Mass/Vol] 50 mg/dL Normal >39 [facility] Comment on above: Order Comment: Speci men Type: BLOOD SPECIMENOrdering Facility: [facility] Address: [address] [place] [address] Result Comment: 40-5 9 mg/dL, Acceptable>59 mg/dL, High: Negative risk factor for coronary heart disease<40 mg/dL, Low: Positive risk factor for coronary heart disease Performed By: #### 3 040-3, 10274-4, 63129-5 ####[facility] LABCLIA [id number] [address], [facility] [place] Cholesterol in LDL [Mass/Vol] 100 mg/dL High <100 [facility] Comment on above: Order Comment: Speci men Type: BLOOD SPECIMENOrdering Facility: [facility] Address: [address] [place] [address] Result Comment: <100 mg/dL, Optimal 100-129 mg/dL, Near optimal/above optimal 130-159 mg/dL, Borderline high 160-189 mg/dL, High>189 mg/dL, Very highSecondary prevention optimal LDL Cholesterol levels are recommended to be < 70 mg/dL Performed By: #### 3 040-3, 46246-0, 47331-2 ####[facility] LABCLIA [id number] [address] [address] [place] Cholesterol in LDL/Cholesterol in HDL [Mass ratio] 2.00 {ratio} Normal <2.54 [facility] Comment on above: Order Comment: Ian men Type: BLOOD SPECIMENOrdering Facility: [facility] Address: [address] [place] [address] Result Comment: Refe edgarce:1. National Cholesterol Education Program ATP III Guideline At-A-Glance Quick Desk Reference: National Heart, Lung, and Blood [place]. National Institutes of Health. 2001: NIH Publication No. 01-3305.2. An International Atherosclerosis Society position paper: global recommendations for the management of dyslipidemia: executive summary, Atherosclerosis. 2014: 232(2):410-413. Performed By: #### 3 040-3, 20746-2, 66209-0 ####[facility] LABCLIA [id number] [address] [address] [place] Cholesterol in VLDL [Mass/Vol] 19 mg/dL Normal <30 [facility] Comment on above: Order Comment: Nahuni maikol Type: BLOOD SPECIMENOrdering Facility: [facility] Address: [address] [place] [address] Performed By: #### 3 040-3, 44918-6, 61224-9 ####[facility] LABCLIA [id number] [address] [address] [place] Cholesterol non HDL [Mass/Vol] 119 mg/dL Normal <130 [facility] Comment on above: Order Comment: Speci men Type: BLOOD SPECIMENOrdering Facility: [facility] Address: [address] [place] [address] Result Comment: <130 mg/dL, Optimal 130-159 mg/dL, Near optimal/above optimal 160-189 mg/dL, Borderline high 190-219 mg/dL, High>219 mg/dL, Very highSecondary prevention optimal non HDL Cholesterol levels are recommended to be <100 mg/dL Performed By: #### 3 040-3, 32277-0, 93530-4 ####[facility] LABCLIA [id number] [place] [address] [place] Cholesterol.total/Cho lesterol in HDL [Mass ratio] 3.38 {ratio} Normal <5.10 [facility] Comment on above: Order Comment: Speci men Type: BLOOD SPECIMENOrdering Facility: [facility] Address: [address] [place] [address] Performed By: #### 3 040-3, 87759-7, 33796-3 ####[facility] LABCLIA [id number] [place] [id number] [place] FASTING TIME Normal [facility] Comment on above: Order Comment: Speci men Type: BLOOD SPECIMENOrdering Facility: [facility] Address: [address] [place] [address] Result Comment: Unkn own Performed By: #### 3 040-3, 26331-2, 80983-0 ####[facility] LABCLIA [id number] [address] [address] [place] Triglyceride [Mass/Vol] 97 mg/dL Normal <150 [facility] Comment on above: Order Comment: Speci men Type: BLOOD SPECIMENOrdering Facility: [facility] Address: [address] [place] [address] Result Comment: <150 mg/dL, Normal 150-199 mg/dL, Borderline high 200-499 mg/dL, High>499 mg/dL, Very high Performed By: #### 3 040-3, 64613-1, 87990-0 ####[facility] LABIA [id number] [address] [place] NT-proBNP SerPl-mCncon 11-27 Natriuretic peptide.B prohormone N-Terminal [Mass/Vol] 1180 pg/mL High <450 [facility] Comment on above: Order Comment: Speci men Type: BLOOD SPECIMENOrdering Facility: [facility] Address: [address] [place] [address] Performed By: #### 3 040-3, 52421-2, 27180-1 ####[facility] LABIA [id number] [address] [place] TSH SerPl-aCncon 11-27-2024 TSH Qn 8.680 m[IU]/L High 0.270-4.200 [facility] Comment on above: Order Comment: Speci men Type: BLOOD SPECIMENOrdering Facility: [facility] Address: [address] [place] [address] Performed By: #### 3 016-3 ####[facility] [id number] [place] [address] [place] UA DIP, URINE (POC)on 2024 BILIRUBIN UA (POCT) Negative Negative [facility] CLARITY UA (POCT) Clear [facility] COLOR UA (POCT) Yellow [facility] GLUCOSE UA (POCT) Negative Negative mg/dL [facility] Hemoglobin Ql (U) Negative Negative [facility] Interpretation and review of laboratory results Abnormal [facility] KETONE UA (POCT) Negative Negative mg/dL [facility] LEUKOCYTES UA (POCT) Negative Negative [facility] NITRITE UA (POCT) Negative Negative [facility] PH UA (POCT) 6 4.5 - 8.0 [facility] Protein Ql (U) Trace Abnormal Negative mg/dL [facility] SPECIFIC GRAVITY UA (POCT) 1.02 1.005 - 1.030 [facility] UROBILINOGEN UA (POCT) 0.2 Normal E.U./dL [facility] Location:[facility], [address], [place], [address] [facility] POINT OF CARE [facility] CNTHERAPYon 11-24-2024 CNTHERAPY Normal [facility] [id number] 11-21-2024 [id number] Normal [facility] CNTHERAPYon 11-21-2024 CNTHERAPY Normal [facility] THERAPY NTon 11-21-2024 THERAPY NT Normal [facility] CNOVon 11-09-2024 CNOV Normal [facility] CNOVon 11-07-2024 CNOV Normal [facility] Surgery Visit Reporton 09-15 Surgery Visit Report [facility] [address] [place] [address] OFFICE VISIT Date of Service: 09/15/24 MR#: [id number] Acct: [id number] Name: LEANA CAMEJO Rep #: [id number] : 1940 Provider: Dr. Lara lemons MD Age/Sex: 84/M Location: [facility] Status: Signed Intake Vital Signs 08/31/24 06:39 Height 5 ft 8 in Intake Visit Reasons: SPIGELIAN HERNIA DOS 08/31 Chief Complaint: spigelian hernia Is patient in pain?: No Allergies lisinopril Allergy (Intermediate, Verified 09/15/24 13:16) Rash atorvastatin calcium (From Lipitor) Allergy (Verified 09/15/24 13:16) Other clonidine Allergy (Verified 09/15/24 13:16) Unknown rosuvastatin calcium (From Crestor) Allergy (Verified 09/15/24 13:16) Other Twziuwe-MSN-AnJ Reductase Inhibitor (Fewmiqg-Rek-Vol Reductase Inhibitor) Allergy (Verified 09/15/24 13:16) Other Have you fallen in the past year?: No Subjective Details: 84-year-old male presents status post left spigelian hernia repair with mesh. Patient is doing well denies any pain at that area or issues with the incision. Patient is interested in possibly following with vascular surgery in [place] not having to go all the way to [facility]. Objective Details: Abdomen: Soft, nondistended, nontender, incision healing well clean dry and intact no signs of infection. Coding Level of Care Code Global Post Op Diagnoses S/P spigelian hernia repair, follow-up exam Z09 [facility] Medical History (Updated 09/15/24 @ 13:16 by [...] Also refer patient to vascular surgery and [place] Dr. 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 Perez previously. Lara Fonseca M.D. Pager: [phone] [facility] [address] [place] [address], [facility], [address] [place] [address] Office: [phone] 09/17/24 1417 Date Lara Arrington Signature: Date (if applicable) CC: Dr. Dallas Reed MD Normal [facility] CNPNon 09-08-2024 CNPN Normal [facility] CNOVon 09-07-2024 CNOV Normal [facility] T3 SerPl-mCncon 09-07-2024 T3 [Mass/Vol] 69 ng/dL Low 79-165 [facility] Comment on above: Order Comment: Speci men Type: BLOOD SPECIMENOrdering Facility: [facility] Address: [address] [place] [address] Performed By: #### 3 024-7, 3053-6 ####[facility] [id number] [place] [address] [place] T4 Free SerPl-mCncon 024 Free T4 [Mass/Vol] 1.3 ng/dL Normal 0.9-1.7 [facility] Comment on above: Order Comment: Speci men Type: BLOOD SPECIMENOrdering Facility: [facility] Address: [address] [place] [address] Performed By: #### 3 024-7, 3053-6 ####[facility] [id number] [place] [address] [place] Discharge Instructionon 08-20 Discharge Instruction [facility] Medical Records Department [address] [place] [address] Instructions for Home/Discharge Instructions 08/31/24 0825 MR#: [id number] Acct: [id number] Name: LEANA CAMEJO Rep #: [id number] : 1940 84 From: Lara Fonseca MD PCP: Dr. Dallas Reed MD Status:REG [facility] Discharge Instructions Diet Discharge Diet: Light diet [...] 5 PM and on the weekends call [phone] with any concerns. Test Results: Test results from this visit will be discussed in further detail at your follow-up appointment, if applicable. Discharge Plan Admission Attending Provider: Lara Fonseca Primary Care Provider: Dallas Reed Instructions Print Language: South African Discharge Orders/Prescriptions Prescriptions: New tramadol 50 mg [...] MD CC: Dr. Dallas Reed MD Signed [facility] MR/POSTOP.ANE 08-31-2024 MR/POSTOP.[facility] Medical Records Department [address] [place] [address] Anesthesia Postop Eval I 08/31/24843 MR#: [id number] Acct: [id number] Name: LEANA CAMEJO Rep #: [id number] : 1940 84 From: Melina Paz PCP: Dr. Dallas Reed MD Status:[facility] Y Race: C Location: [place] [address] Anesthesia: Postop Eval I Current Vital Signs [...] Date Melina Arrington Signature: Date CC: Signed [facility] MR/[id number] 08-31-2024 MR/POSTOPAN2 [facility] Medical Records Department [address] [place] [address] Anesthesia Postop Eval II 08/31/24912 MR#: [id number] Acct: [id number] Name: LEANA CAMEJO Rep #: [id number] : 1940 84 From: Man Madrid MD PCP: Dr. Dallas Reed MD Status:REG [facility] Y Race: C Location: [place] [address]- Anesthesia Postop Eval I Sum Postop Eval Completion status Anesthesia document: Postop Eval 1 completed: Yes Anesthesia Postop Eval I Summary Anesthesia Postop Eval I Summary: Anesthesia Postop Eval I: Assessment Summary Airway patent Yes 08/31/24 08:44 DIRECT MARKETING ANALYST.CSIR Spontaneous unlabored Yes 08/31/24 08:44 DIRECT MARKETING ANALYST.CSIR respirations Mental status nausea No 08/31/24 08:44 DIRECT MARKETING ANALYST.CSIR Vomiting No 08/31/24 08:44 DIRECT MARKETING ANALYST.CSIR Anesthesia Postop Eval I: Fluid Summary Crystalloid volume administer 1,000 08/31/24 08:44 DIRECT MARKETING ANALYST.CSIR (ml) Colloids volume administered ( ml) Blood Product volume administered (ml) Total IV fluid infused 1,000 08/31/24 08:44 DIRECT MARKETING ANALYST.CSIR Anesthesia Postop Eval I: Summary Notes Anesthesia Complication No 08/31/24 08:44 DIRECT MARKETING ANALYST.CSIR Anesthesia Complication Comment: Post-operative progress note Anesthesia: Postop Eval II Evaluation Mental status: Awake Pain Level: 0 nausea: No Vomiting: No 08/31/24912 Date Man Madrid MD Cosigner Signature: Date CC: Signed Normal [facility] Operative Reporton 4 Operative Report [facility] Medical Records Department [address] [place] [address] Operative Report 08/31/24824 MR#: [id number] Acct: [id number] Name: LINDA CAMEJOBY KRYSTLE Rep #: [id number] : 1940 84 From: Lara Fonseca MD PCP: Dr. Dallas Reed MD Status:[facility] Location: [facility] Operative Report (Standard) Operative Information Date of Procedure: 08/31/24 Pre-Operative Diagnosis: Left spigelian hernia Post-Operative Diagnosis: Same Surgery/Procedure Performed: Open left spigelian hernia pair with mesh staff development educator: Yes Senior Speech Pathologist: Magalys Oneal Tasks completed by rehabilitation assistant: Closing and Retracting Type of Anesthesia: General/Supplemental [...] Ventralex ST hernia patch 6.4 cm ref [id number] Lot [id number] Special Medications: Ancef 2 g IV x [...] The hernia defect was closed with 2 aciudl-er-ttuin 0 Nurolon. The wound was irrigated with [...] Fonseca MD; Dr. Dallas Reed MD [facility] [place] [place] CBC panel Auto (Bld)on 08-04 Erythrocyte distribution width (RBC) [Ratio] 14.7 % Normal 11.5-15.0 [facility] Comment on above: Order Comment: Speci men Type: BLOOD SPECIMENOrdering Facility: [facility] Address: [address] [place] [address] Performed By: #### 5 8410-2 ####[facility] [id number] [place] [address] [place] Hematocrit (Bld) [Volume fraction] 37.4 % Low 39.0-51.0 [facility] Comment on above: Order Comment: Speci men Type: BLOOD SPECIMENOrdering Facility: [facility] Address: [address] [place] [address] Performed By: #### 5 8410-2 ####[facility] [id number] [place] [address] [place] Hemoglobin (Bld) [Mass/Vol] 11.9 g/dL Low 13.0-17.0 [facility] Comment on above: Order Comment: Speci men Type: BLOOD SPECIMENOrdering Facility: [facility] Address: [address] [place] [address] Performed By: #### 5 8410-2 ####[facility] [id number] [place] [address] [place] MCH (RBC) [Entitic mass] 30.1 pg Normal 26.0-34.0 [facility] Comment on above: Order Comment: Speci men Type: BLOOD SPECIMENOrdering Facility: [facility] Address: [address] [place] [address] Performed By: #### 5 8410-2 ####[facility] [id number] [place] [address] [place] MCHC (RBC) [Mass/Vol] 31.8 g/dL Normal 30.5-36.0 [facility] Comment on above: Order Comment: Speci men Type: BLOOD SPECIMENOrdering Facility: [facility] Address: [address] [place] [address] Performed By: #### 5 8410-2 ####[facility] [id number] [place] [address] [place] MCV (RBC) [Entitic vol] 94.4 fL Normal 80.0-100.0 [facility] Comment on above: Order Comment: Speci men Type: BLOOD SPECIMENOrdering Facility: [facility] Address: [address] [place] [address] Performed By: #### 5 8410-2 ####[facility] [id number] [place] [address] [place] Nucleated RBC (Bld) [#/Vol] 10*3/uL Normal <0.01 [facility] Comment on above: Order Comment: Speci men Type: BLOOD SPECIMENOrdering Facility: [facility] Address: [address] [place] [address] Performed By: #### 5 8410-2 ####[facility] [id number] [place] [address] [place] Platelet mean volume (Bld) [Entitic vol] 12.3 fL Normal 9.0-12.7 [facility] Comment on above: Order Comment: Speci men Type: BLOOD SPECIMENOrdering Facility: [facility] Address: [address] [place] [address] Performed By: #### 5 8410-2 ####[facility] LABCLIA [id number] [place] [address] [place] Platelets (Bld) [#/Vol] 88 10*3/uL Low 150-400 [facility] Comment on above: Order Comment: Speci men Type: BLOOD SPECIMENOrdering Facility: [facility] Address: [address] [place] [address] Result Comment: No c lot detected. Performed By: #### 5 8410-2 ####[facility] LABCLIA [id number] [place] [address] [place] RBC (Bld) [#/Vol] 3.96 10*6/uL Low 4.20-6.00 [facility] Comment on above: Order Comment: Speci men Type: BLOOD SPECIMENOrdering Facility: [facility] Address: [address] [place] [address] Performed By: #### 5 8410-2 ####[facility] [id number] [place] [address] [place] WBC (Bld) [#/Vol] 5.07 10*3/uL Normal 3.70-11.00 [facility] Comment on above: Order Comment: Speci men Type: BLOOD SPECIMENOrdering Facility: [facility] Address: [address] [place] [address] Performed By: #### 5 8410-2 ####[facility] LABCLIA [id number] [place] [address] [place] Comprehensive metabolic 2000 panelon 08-04-2024 Albumin [Mass/Vol] 3.7 g/dL Low 3.9-4.9 [facility] Comment on above: Order Comment: Speci men Type: BLOOD SPECIMENOrdering Facility: [facility] Address: [address] [place] [address] Performed By: #### 2 4323-8, 95141-2, 6-3 ####[facility] LABCLIA [id number] [place] [address] [place] ALP [Catalytic activity/Vol] 44 U/L Normal 38-113 [facility] Comment on above: Order Comment: Speci men Type: BLOOD SPECIMENOrdering Facility: [facility] Address: [address] [place] [address] Performed By: #### 2 4323-8, 69890-3, 3015-3 ####[facility] LABCLIA [id number] [place] [address] [place] ALT [Catalytic activity/Vol] 22 U/L Normal 10-54 [facility] Comment on above: Order Comment: Speci men Type: BLOOD SPECIMENOrdering Facility: [facility] Address: [address] [place] [address] Performed By: #### 2 4323-8, 30242-9, 3 ####[facility] LABCLIA [id number] [place] [address] [place] Anion gap [Moles/Vol] 9 mmol/L Normal 8-15 [facility] Comment on above: Order Comment: Speci men Type: BLOOD SPECIMENOrdering Facility: [facility] Address: [address] [place], [place] [address] Performed By: #### 2 4323-8, 85824-7, 3015-3 ####[facility] LABCLIA [id number] [facility] [place] [address] [place] AST [Catalytic activity/Vol] 25 U/L Normal 14-40 [facility] Comment on above: Order Comment: Speci men Type: BLOOD SPECIMENOrdering Facility: [facility] Address: [address] [place] [address] Performed By: #### 2 4323-8, 34397-1, 6-3 ####[facility] LABCLIA [id number] [address] [address] [place] Bilirubin [Mass/Vol] 0.6 mg/dL Normal 0.2-1.3 [facility] Comment on above: Order Comment: Speci men Type: BLOOD SPECIMENOrdering Facility: [facility] Address: [address] [place], [place] [address] Performed By: #### 2 4323-8, 72987-6, 3015-3 ####[facility] LABCLIA [id number] [place] [address] [place] Calcium [Mass/Vol] 9.4 mg/dL Normal 8.5-10.2 [facility] Comment on above: Order Comment: Speci men Type: BLOOD SPECIMENOrdering Facility: [facility] Address: [address] [place], [place] [address] Performed By: #### 2 4323-8, 52929-2, 3015-3 ####[facility] LABCLIA [id number] [place] [address] [place] Chloride [Moles/Vol] 102 mmol/L Normal 98-107 [facility] Comment on above: Order Comment: Speci men Type: BLOOD SPECIMENOrdering Facility: [facility] Address: [address] [place] [address] Performed By: #### 2 4323-8, 18759-6, 3015-3 ####[facility] LABCLIA [id number] [place] [address] [place] CO2 [Moles/Vol] 28 mmol/L Normal 22-30 [facility] Comment on above: Order Comment: Speci men Type: BLOOD SPECIMENOrdering Facility: [facility] Address: [address] [place] [address] Performed By: #### 2 4323-8, 88375-9, 6-3 ####[facility] [id number] [place] [address] [place] Creatinine [Mass/Vol] 1.55 mg/dL High 0.73-1.22 [facility] Comment on above: Order Comment: Specbrice men Type: BLOOD SPECIMENOrdering Facility: [facility] Address: [address] [place] [address] Performed By: #### 2 4323-8, 28856-3, 6-3 ####[facility] [id number] [place] [address] [place] Creatinine and Glomerular filtration rate.predicted panel (S/P/Bld) 44 mL/min/1.73m??? Low >=60 [facility] Comment on above: Order Comment: Ian lassiter Type: BLOOD SPECIMENOrdering Facility: [facility] Address: [address] [place] [address] Result Comment: Keara mated Glomerular Filtration Rate [...] actual GFR. Performed By: #### 2 4323-8, 10356-5, 3015-3 ####[facility] [id number] [place] [address] [place] Glucose [Mass/Vol] 101 mg/dL High 74-99 [facility] Comment on above: Order Comment: Ian men Type: BLOOD SPECIMENOrdering Facility: [facility] Address: [address] [place] [address] Result Comment: The [place] Diabetes Association (ADA) provides guidance for cutoff [...] Standards of Medical Care in Diabetes 2016, [place] Diabetes Association. Diabetes Care. 2016.39(Suppl 1). Performed By: #### 2 4323-8, 65085-8, 3016-3 ####[facility] LABCLIA [id number] [place] [address] [place] Potassium [Moles/Vol] 4.5 mmol/L Normal 3.7-5.1 [facility] Comment on above: Order Comment: Speci men Type: BLOOD SPECIMENOrdering Facility: [facility] Address: [address] [place] [address] Performed By: #### 2 4323-8, 00881-1, 3015-3 ####[facility] [id number] [place] [address] [place] Protein [Mass/Vol] 6.8 g/dL Normal 6.3-8.0 [facility] Comment on above: Order Comment: Speci men Type: BLOOD SPECIMENOrdering Facility: [facility] Address: [address] [place], [place] [address] Performed By: #### 2 4323-8, 82919-8, 6-3 ####[facility] [id number] [place] [address] [place] Sodium [Moles/Vol] 139 mmol/L Normal 136-144 [facility] Comment on above: Order Comment: Speci men Type: BLOOD SPECIMENOrdering Facility: [facility] Address: [address] [place] [address] Performed By: #### 2 4323-8, 42330-8, 3015-3 ####[facility] LABCLIA [id number] [place] [address] [place] Urea nitrogen [Mass/Vol] 47 mg/dL High 9-24 [facility] Comment on above: Order Comment: Speci men Type: BLOOD SPECIMENOrdering Facility: [facility] Address: [address] [place] [address] Performed By: #### 2 4323-8, 38715-7, 3015-3 ####[facility] LABCLIA [id number] [place] [address] [place] Lipid 1996 panelon 4 Cholesterol [Mass/Vol] 119 mg/dL Normal <200 [facility] Comment on above: Order Comment: Speci men Type: BLOOD SPECIMENOrdering Facility: [facility] Address: [address] [place] [address] Result Comment: <200 mg/dL, Desirable 200-239 mg/dL, Borderline high>239 mg/dL, High Performed By: #### 2 4323-8, 58617-3, 3 ####[facility] LABCLIA [id number] [place] [address] [place] Cholesterol in HDL [Mass/Vol] 40 mg/dL Normal >39 [facility] Comment on above: Order Comment: Speci men Type: BLOOD SPECIMENOrdering Facility: [facility] Address: [address] [place] [address] Result Comment: 40-5 9 mg/dL, Acceptable>59 mg/dL, High: Negative risk factor for coronary heart disease<40 mg/dL, Low: Positive risk factor for coronary heart disease Performed By: #### 2 4323-8, 03659-4, 3 ####[facility] LABCLIA [id number] [place] [address] [place] Cholesterol in LDL [Mass/Vol] 62 mg/dL Normal <100 [facility] Comment on above: Order Comment: Speci men Type: BLOOD SPECIMENOrdering Facility: [facility] Address: [address] [place] [address] Result Comment: <100 mg/dL, Optimal 100-129 mg/dL, Near optimal/above optimal 130-159 mg/dL, Borderline high 160-189 mg/dL, High>189 mg/dL, Very highSecondary prevention optimal LDL Cholesterol levels are recommended to be < 70 mg/dL Performed By: #### 2 4323-8, 66503-0, 3015-3 ####[facility] LABCLIA [id number] [address] [address] [place] Cholesterol in LDL/Cholesterol in HDL [Mass ratio] 1.55 {ratio} Normal <2.54 [facility] Comment on above: Order Comment: Nahuni men Type: BLOOD SPECIMENOrdering Facility: [facility] Address: [address] [place] [address] Result Comment: Danielle christianson:1. National Cholesterol Education Program ATP III Guideline At-A-Glance Quick Desk Reference: National Heart, Lung, and Blood [place]. National Institutes of Health. 2001: NIH Publication No. 01-3305.2. An International Atherosclerosis Society position paper: global recommendations for the management of dyslipidemia: executive summary, Atherosclerosis. 2014: 232(2):410-413. Performed By: #### 2 4323-8, 45746-8, 3 ####[facility] LABCLIA [id number] [place] [id number] [place] Cholesterol in VLDL [Mass/Vol] 17 mg/dL Normal <30 [facility] Comment on above: Order Comment: Nahuni maikol Type: BLOOD SPECIMENOrdering Facility: [facility] Address: [address] [place] [address] Performed By: #### 2 4323-8, 61677-2, 3015-3 ####[facility] LABCLIA [id number] [facility] [address] [address] [place] Cholesterol non HDL [Mass/Vol] 79 mg/dL Normal <130 [facility] Comment on above: Order Comment: Speci men Type: BLOOD SPECIMENOrdering Facility: [facility] Address: [address] [place] [address] Result Comment: <130 mg/dL, Optimal 130-159 mg/dL, Near optimal/above optimal 160-189 mg/dL, Borderline high 190-219 mg/dL, High>219 mg/dL, Very highSecondary prevention optimal non HDL Cholesterol levels are recommended to be <100 mg/dL Performed By: #### 2 4323-8, 94567-2, 3016-3 ####[facility] LABCLIA [id number] [place] [address] [place] Cholesterol.total/Cho lesterol in HDL [Mass ratio] 2.98 {ratio} Normal <5.10 [facility] Comment on above: Order Comment: Speci men Type: BLOOD SPECIMENOrdering Facility: [facility] Address: [address] [place] [address] Performed By: #### 2 4323-8, 31122-8, 6-3 ####[facility] LABCLIA [id number] [place] [address] [place] FASTING TIME 12 hrs Normal [facility] Comment on above: Order Comment: Speci men Type: BLOOD SPECIMENOrdering Facility: [facility] Address: [address] [place] [address] Performed By: #### 2 4323-8, 63287-9, 3016-3 ####[facility] LABCLIA [id number] [place] [id number] [place] Triglyceride [Mass/Vol] 83 mg/dL Normal <150 [facility] Comment on above: Order Comment: Speci men Type: BLOOD SPECIMENOrdering Facility: [facility] Address: [address] [place] [address] Result Comment: <150 mg/dL, Normal 150-199 mg/dL, Borderline high 200-499 mg/dL, High>499 mg/dL, Very high Performed By: #### 2 4323-8, 68883-2, 3016-3 ####[facility] LABCLIA [id number] [place] [id number] [place] TSH SerPl-aCncon 08-04-2024 TSH Qn 7.280 m[IU]/L High 0.270-4.200 [facility] Comment on above: Order Comment: Speci men Type: BLOOD SPECIMENOrdering Facility: [facility] Address: [address] [place] [address] Performed By: #### 2 4323-8, 85140-0, 3016-3 ####[facility] LABCLIA [id number] [place] [address] [place] CNPNon 08-01-2024 CNPN Normal [facility] Surgery Visit Reporton 07-26 Surgery Visit Report [facility] [place] [address] OFFICE VISIT Date of Service: 07/26/24 MR#: [id number] Acct: [id number] Name: LEANA CAMEJO Rep #: [id number] : 1940 Provider: Dr. Lara lemons MD Age/Sex: 84/M Location: [facility] Status: Signed Intake Vital Signs 07/11/24 16:09 07/26/24 09:19 Height 5 ft 8 in 5 ft 8 in Weight: 156 lb BMI 23.7 BP 111/66 Blood Pressure Location Rt brachial Position Sitting Respiration 18 Intake Visit Reasons: SPIGELIAN HERNIA Chief Complaint: spigelian hernia Receiving Clerk Required: No Is patient in pain?: No Allergies lisinopril Allergy (Intermediate, Verified 07/26/24 09:20) Rash atorvastatin calcium (From Lipitor) Allergy (Verified 07/26/24 09:20) Other clonidine Allergy (Verified 07/26/24 09:20) Unknown rosuvastatin calcium (From Crestor) Allergy (Verified 07/26/24 09:20) Other Atzndqf-KDQ-SqW Reductase Inhibitor (Glpajah-Cbu-Kyh Reductase Inhibitor) Allergy (Verified 07/26/24 09:20) Other [...] moles Musc Musculoskele (more content not included)... [facility] CNOVon 07-17-[address] [facility] 12 Lead EKGon 07-11-2024 12 Lead EKG [facility] Cardi[facility] Services [address] [place] [address] 12 Lead EKG 07/11/24 7408 MR#: [id number] Acct: [id number] Name: LEANA CAMEJO Rep #: [id number] : 1940 84 From: Donato Longoria MD Attending Dr: Status: DEP ER Ordering [...] ECG Confirmed by DONATO LONGORIA MD ([id number]), editor school photograph BENITA NUNN ([id number]) on 07/13/2024 9:08:10 AM Referred By: Confirmed By:DONATO LONGORIA MD 07/13/24 0908 Date Donato Longoria MD CC: Dr. Veena Nelson DO; Dr. Dallas Reed MD Signed Normal [facility] Abdomen/Pelvis W IV Cont ONLY [facility] Imaging Services [address] [place] [address] Abdomen/Pelvis W IV Cont ONLY MR#: [id number] Acct: [id number] Name: LEANA CAMEJO Rep #: [id number] : 1940 M 84 From: Marisabel Quiñonez MD PCP: Dr. Dallas Reed MD Status: REG ER Study: Abdomen/Pelvis W IV Cont ONLY Date of Exam: Exam# [id number] Ordering Dr: Veena Nelson DO ADDENDUM by Dr. Marisabel Quiñonez MD on 07/11/24 at 2017 [id number] EXAM: CT ABDOMEN AND PELVIS WITH INTRAVENOUS [...] contains gas, no obvious strangulation. 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 Similar prior exam. Kidneys enhance symmetrically. LYMPH NODES: Unremarkable. No enlarged lymph nodes. TUBES, LINES AND DEVICES: Similar but larger appearance of the endoleak with [place] MUNDO supplied by the endoleak. The endoleak [...] retroperitoneal hemorrhage (more content not included)... Normal [facility] Basic Metabolic Profile (BMP )on 07-11-2024 BUN/CRE 25.2 RATIO High 07-09 [facility] Comment on above: Performed By: #### L 100.0100, L500.2500 #### [facility] Laboratory [address] [place], [address] CA,Total 9.6 mg/dL Normal 8.5-10.1 [facility] Comment on above: Performed By: #### L 100.0100, L500.2500 #### [facility] [address] [place], [address] Chloride [Moles/Vol] 104 mmol/L Normal 98-107 [facility] Comment on above: Performed By: #### L 100.0100, L500.2500 #### [facility] [address] [place], [address] CO2 [Moles/Vol] 30.0 mmol/L Normal 21.0-32.0 [facility] Comment on above: Performed By: #### L 100.0100, L500.2500 #### [facility] [address] [place], [address] Creatinine [Mass/Vol] 1.63 mg/dL High 0.70-1.30 [facility] Comment on above: Result Comment: The validity of the calculated GFR GFRAA in patients over 70 years has not been determined. Clinical correlation is essential. Performed By: #### L 100.0100, L500.2500 #### [facility] [address] [place], [address] ECRCL 32.64 ml/min Normal [facility] Comment on above: Performed By: #### L 100.0100, L500.2500 #### [facility] [address] [place], [address] EST GFR - AA 52 mL/min Low >60 [facility] Comment on above: Result Comment: Afri can Kitt[place] GFR Calc Performed By: #### L 100.0100, L500.2500 #### [facility] [address] [place], [address] GAP 4 Low 5-15 [facility] Comment on above: Performed By: #### L 100.0100, L500.2500 #### [facility] [address] [place], [address] GFR/1.73 sq M.predicted among non-blacks MDRD (S/P/Bld) [Vol rate/Area] 43 mL/min/{1.73_m2} Low >60 [facility] Comment on above: Result Comment: Non- GFR Calc Performed By: #### L 100.0100, L500.2500 #### [facility] [address] [place], [address] Glucose [Mass/Vol] 118 mg/dL High 74-106 [facility] Comment on above: Result Comment: Fast ing Glucose result from 100 to 125 mg/dL suggests IMPAIRED HOMEOSTASIS per A.D.A. criteria. Performed By: #### L 100.0100, L500.2500 #### [facility] [address] [place], [address] Potassium [Moles/Vol] 4.1 mmol/L Normal 3.5-5.1 [facility] Comment on above: Performed By: #### L 100.0100, L500.2500 #### [facility] [address] [place], [address] Sodium [Moles/Vol] 138 mmol/L Normal 136-145 [facility] Comment on above: Performed By: #### L 100.0100, L500.2500 #### [facility] [address] [place], [address] Urea nitrogen [Mass/Vol] 41 mg/dL High 7-18 [facility] Comment on above: Performed By: #### L 100.0100, L500.2500 #### [facility] [address] [place], [address] CBC W/Diff, Automatedon 10-2 Absolute Lymph 0.90 X10 3/uL Normal 0.83-4.51 [facility] Comment on above: Performed By: #### L 100.0100, L500.2500 #### [facility] [address] [place], [address] Absolute Neut 4.8 X10 3/uL Normal 2.0-7.7 [facility] Comment on above: Performed By: #### L 100.0100, L500.2500 #### [facility] [address] [place], [address] Basophils/100 WBC (Bld) 0.5 % Normal 0-1 [facility] Comment on above: Performed By: #### L 100.0100, L500.2500 #### [facility] [address] [place], [address] Eosinophils/100 WBC (Bld) 1.7 % Normal 0-5 [facility] Comment on above: Performed By: #### L 100.0100, L500.2500 #### [facility] [address] [place], [address] Erythrocyte distribution width (RBC) [Ratio] 15.0 % High 11.6-14.6 [facility] Comment on above: Performed By: #### L 100.0100, L500.2500 #### [facility] [address] [place], [address] Hematocrit (Bld) [Volume fraction] 36.3 % Low 40-54 [facility] Comment on above: Performed By: #### L 100.0100, L500.2500 #### [facility] [address] [place], [address] Hemoglobin (Bld) [Mass/Vol] 11.8 g/dL Low 13.0-16.5 [facility] Comment on above: Performed By: #### L 100.0100, L500.2500 #### [facility] [address] [place], [address] IG% 0.500 Normal 0.0-0.9 [facility] Comment on above: Result Comment: IG% - Immature Granulocytes (promyelocytes, myelocytes and metamyelocytes) > 1% indicates that a LEFT SHIFT is Present. Performed By: #### L 100.0100, L500.2500 #### [facility] [address] [place], [address] Lymphocytes/100 WBC (Bld) 13.9 % Low 19-41 [facility] Comment on above: Performed By: #### L 100.0100, L500.2500 #### [facility] [address] [place], [address] MCH (RBC) [Entitic mass] 29.9 pg Normal 27.0-32.0 [facility] Comment on above: Performed By: #### L 100.0100, L500.2500 #### [facility] [address] [place], [address] MCHC (RBC) [Mass/Vol] 32.5 g/dL Normal 32-36 [facility] Comment on above: Performed By: #### L 100.0100, L500.2500 #### [facility] [address] [place], [address] MCV (RBC) [Entitic vol] 91.9 fL Normal 80-94 [facility] Comment on above: Performed By: #### L 100.0100, L500.2500 #### [facility] [address] [place], [address] Monocytes/100 WBC (Bld) 9.3 % Normal 0-10 [facility] Comment on above: Performed By: #### L 100.0100, L500.2500 #### [facility] [address] [place], [address] Neutrophils/100 WBC (Bld) 74.1 % High 47-70 [facility] Comment on above: Performed By: #### L 100.0100, L500.2500 #### [facility] [address] [place], [address] Nucleated RBC (Bld) [#/Vol] 0 10*3/uL Normal 0-5 [facility] Comment on above: Performed By: #### L 100.0100, L500.2500 #### [facility] [address] [place], [address] Platelet mean volume (Bld) [Entitic vol] 10.7 fL Normal 6.2-12.0 [facility] Comment on above: Performed By: #### L 100.0100, L500.2500 #### [facility] [address] [place], [address] Platelets (Bld) [#/Vol] 107 10*3/uL Low 150-450 [facility] Comment on above: Performed By: #### L 100.0100, L500.2500 #### [facility] [address] [place], [address] RBC (Bld) [#/Vol] 3.95 10*6/uL Low 4.6-6.2 [facility] Comment on above: Performed By: #### L 100.0100, L500.2500 #### [facility] [address] [place], [address] RDW SD 51.2 fl High 35.1-43.9 [facility] Comment on above: Performed By: #### L 100.0100, L500.2500 #### [facility] [address] [place], [address] WBC (Bld) [#/Vol] 6.5 10*3/uL Normal 4.4-11.0 [facility] Comment on above: Performed By: #### L 100.0100, L500.2500 #### [facility] [address] [place], [address] CNOVon 07-11-2024 CNOV Normal [facility] Chest PA and Lateralon 07-11 Chest PA and Lateral [facility] Imaging Services [address] [place] [address] Chest PA and Lateral MR#: [id number] Acct: [id number] Name: LEANA CAMEJO Rep #: [id number] : 1940 M 84 From: Marisabel Quiñonez MD PCP: Dr. Dallas Reed MD Status: REG ER Study: Chest PA and Lateral Date of Exam: 07/11/24 Exam# [id number] Ordering Dr: Veena Nelson DO [id number] EXAM: XR CHEST, 2 VIEWS CLINICAL INDICATION: [...] Veena Nelson DO; Dr. Dallas Reed MD Whizzer Hand: Signed Normal [facility] Emergency Department Summary on 07-11-2024 Emergency Department Summary [facility] Medical Records Department [address] [place] [address] Emergency Department Summary 07/11/24 MR#: [id number] Acct: [id number] Name: LEANA CAMEJO Rep #: [id number] : 1940 84 From: Veena Nelson DO [...] complaints or concerns reported at this time [facility] Medical History Ataxia History of echocardiogram Easy [...] (From Allergy Other Verified 07/11/24 16:12 Crestor) Hmjhvfi-BBK-PtK Reductase Allergy Other Verified 07/11/24 16:12 Inhibitor (Ytnnjbc-Mgf-Ogd Reductase Inhibitor) Family History Father Lung cancer [...] servings: 2 (more content not included)... Normal [facility] MR/BMS.Arnoldo 07-07-2024 MR/BMS.BVS [facility] [address] [place] [address] OFFICE VISIT Date of Service: 07/07/24 MR#: [id number] Acct: [id number] Name: LEANA CAMEJO Rep #: [id number] : 1940 Provider: CHRIS Orellana Age/Sex: 84/M Location: [facility] Status: Signed with Addenda ADDENDUM by CHRIS Orellana on 07/13/24 at 1435 Intake Chief Complaint: Yearly [place] F/u Discuss imaging Allergies lisinopril Allergy (Intermediate, Verified 07/11/24 16:12) Rash atorvastatin calcium (From Lipitor) Allergy (Verified 07/11/24 16:12) Other clonidine Allergy (Verified 07/11/24 16:12) Unknown rosuvastatin calcium (From Crestor) Allergy (Verified 07/11/24 16:12) Other Xufidhu-LNP-KrB Reductase Inhibitor (Kildvcr-Rji-Zke Reductase Inhibitor) Allergy (Verified 07/11/24 16:12) Other [...] size are stable. Also received records from [facility], Dr. Koawlski had also felt that the endoleak was [...] (From Crestor) Allergy (Verified 07/07/24 14:18) Other Pzqswfo-KKE-RhM Reductase Inhibitor (Nhynotj-Igc-Yyx Reductase Inhibitor) Allergy (Verified 05/23/24 15:46) Other Medications ???Medication ???Instructions ???Recorded ???Confirmed ???Type losartan 100 mg tablet 100 mg PO DAILY BP 05/17/19 07/07/24 History cholecalciferol (vitamin D3) 50 2,000 unit PO DAILY supplement 05/18/19 07/07/24 History mcg (2,000 unit) capsule multivitamin 1 tab PO DAILY supplement 05/18/19 07/07/24 History ascorbic acid (vitamin C) 500 mg 2, (more content not included)... Normal [facility] CNPTOUTREACHon 06-22-2024 CNPTOUTREACH Normal [facility] CNOVon 06-07-2024 CNOV Normal [facility] CBC W Auto Differential pane l (Bld)on 05-31-2024 Basophils (Bld) [#/Vol] 0.04 10*3/uL Normal <0.11 [facility] Comment on above: Order Comment: Speci men Type: BLOOD SPECIMENOrdering Facility: [facility] Address: [address] [place] [address] Performed By: #### 5 7021-8 ####[facility] LABCLIA [id number] [place] [address] [place] Basophils/100 WBC (Bld) 0.6 % Normal [facility] Comment on above: Order Comment: Speci men Type: BLOOD SPECIMENOrdering Facility: [facility] Address: [address] [place] [address] Performed By: #### 5 7021-8 ####[facility] LABCLIA [id number] [place] [address] [place] Differential cell count method Nom (Bld) Auto Normal [facility] Comment on above: Order Comment: Speci men Type: BLOOD SPECIMENOrdering Facility: [facility] Address: [address] [place] [address] Performed By: #### 5 7021-8 ####[facility] LABCLIA [id number] [place] [address] [place] Eosinophils (Bld) [#/Vol] 0.12 10*3/uL Normal <0.46 [facility] Comment on above: Order Comment: Speci men Type: BLOOD SPECIMENOrdering Facility: [facility] Address: [address] [place] [address] Performed By: #### 5 7021-8 ####[facility] LABCLIA [id number] [place] [address] [place] Eosinophils/100 WBC (Bld) 1.9 % Normal [facility] Comment on above: Order Comment: Speci men Type: BLOOD SPECIMENOrdering Facility: [facility] Address: [address] [place] [address] Performed By: #### 5 7021-8 ####[facility] LABCLIA [id number] [place] [address] [place] Erythrocyte distribution width (RBC) [Ratio] 15.8 % High 11.5-15.0 [facility] Comment on above: Order Comment: Speci men Type: BLOOD SPECIMENOrdering Facility: [facility] Address: [address] [place] [address] Performed By: #### 5 7021-8 ####[facility] LABIA [id number] [place] [address] [place] Hematocrit (Bld) [Volume fraction] 39.2 % Normal 39.0-51.0 [facility] Comment on above: Order Comment: Speci men Type: BLOOD SPECIMENOrdering Facility: [facility] Address: [address] [place] [address] Performed By: #### 5 7021-8 ####[facility] LABIA [id number] [place] [address] [place] Hemoglobin (Bld) [Mass/Vol] 12.6 g/dL Low 13.0-17.0 [facility] Comment on above: Order Comment: Speci men Type: BLOOD SPECIMENOrdering Facility: [facility] Address: [address] [place] [address] Performed By: #### 5 7021-8 ####[facility] LABIA [id number] [place] [address] [place] Immature granulocytes (Bld) [#/Vol] 0.03 10*3/uL Normal <0.10 [facility] Comment on above: Order Comment: Speci men Type: BLOOD SPECIMENOrdering Facility: [facility] Address: [address] [place] [address] Performed By: #### 5 7021-8 ####[facility] LABIA [id number] [place] [address] [place] Immature granulocytes/100 WBC (Bld) 0.5 % Normal [facility] Comment on above: Order Comment: Speci men Type: BLOOD SPECIMENOrdering Facility: [facility] Address: [address] [place] [address] Performed By: #### 5 7021-8 ####[facility] LABCLIA [id number] [place] [address] [place] Lymphocytes (Bld) [#/Vol] 1.04 10*3/uL Normal 1.00-4.00 [facility] Comment on above: Order Comment: Speci men Type: BLOOD SPECIMENOrdering Facility: [facility] Address: [address] [place] [address] Performed By: #### 5 7021-8 ####[facility] LABCLIA [id number] [place] [address] [place] Lymphocytes/100 WBC (Bld) 16.5 % Normal [facility] Comment on above: Order Comment: Speci men Type: BLOOD SPECIMENOrdering Facility: [facility] Address: [address] [place] [address] Performed By: #### 5 7021-8 ####[facility] LABCLIA [id number] [place] [address] [place] MCH (RBC) [Entitic mass] 29.7 pg Normal 26.0-34.0 [facility] Comment on above: Order Comment: Speci men Type: BLOOD SPECIMENOrdering Facility: [facility] Address: [address] [place] [address] Performed By: #### 5 7021-8 ####[facility] LABCLIA [id number] [place] [address] [place] MCHC (RBC) [Mass/Vol] 32.1 g/dL Normal 30.5-36.0 [facility] Comment on above: Order Comment: Speci men Type: BLOOD SPECIMENOrdering Facility: [facility] Address: [address] [place] [address] Performed By: #### 5 7021-8 ####[facility] LABCLIA [id number] [place] [address] [place] MCV (RBC) [Entitic vol] 92.5 fL Normal 80.0-100.0 [facility] Comment on above: Order Comment: Speci men Type: BLOOD SPECIMENOrdering Facility: [facility] Address: [address] [place] [address] Performed By: #### 5 7021-8 ####[facility] LABCLIA [id number] [place] [address] [place] Monocytes (Bld) [#/Vol] 0.63 10*3/uL Normal <0.87 [facility] Comment on above: Order Comment: Speci men Type: BLOOD SPECIMENOrdering Facility: [facility] Address: [address] [place] [address] Performed By: #### 5 7021-8 ####[facility] LABCLIA [id number] [place] [address] [place] Monocytes/100 WBC (Bld) 10.0 % Normal [facility] Comment on above: Order Comment: Speci men Type: BLOOD SPECIMENOrdering Facility: [facility] Address: [address] [place] [address] Performed By: #### 5 7021-8 ####[facility] LABCLIA [id number] [place] [address] [place] Neutrophils (Bld) [#/Vol] 4.46 10*3/uL Normal 1.45-7.50 [facility] Comment on above: Order Comment: Speci men Type: BLOOD SPECIMENOrdering Facility: [facility] Address: [address] [place] [address] Performed By: #### 5 7021-8 ####[facility] LABCLIA [id number] [place] [address] [place] Neutrophils/100 WBC (Bld) 70.5 % Normal [facility] Comment on above: Order Comment: Speci men Type: BLOOD SPECIMENOrdering Facility: [facility] Address: [address] [place] [address] Performed By: #### 5 7021-8 ####[facility] LABCLIA [id number] [place] [address] [place] Nucleated RBC (Bld) [#/Vol] 10*3/uL Normal <0.01 [facility] Comment on above: Order Comment: Speci men Type: BLOOD SPECIMENOrdering Facility: [facility] Address: [address] [place] [address] Performed By: #### 5 7021-8 ####[facility] LABCLIA [id number] [place] [address] [place] Nucleated RBC/100 WBC (Bld) [Ratio] 0.0 /100 WBC Normal [facility] Comment on above: Order Comment: Speci men Type: BLOOD SPECIMENOrdering Facility: [facility] Address: [address] [place] [address] Performed By: #### 5 7021-8 ####[facility] LABCLIA [id number] [place] [address] [place] Platelet mean volume (Bld) [Entitic vol] 12.5 fL Normal 9.0-12.7 [facility] Comment on above: Order Comment: Speci men Type: BLOOD SPECIMENOrdering Facility: [facility] Address: [address] [place] [address] Performed By: #### 5 7021-8 ####[facility] LABCLIA [id number] [place] [address] [place] Platelets (Bld) [#/Vol] 78 10*3/uL Low 150-400 [facility] Comment on above: Order Comment: Speci men Type: BLOOD SPECIMENOrdering Facility: [facility] Address: [address] [place] [address] Result Comment: No c lot detected. Performed By: #### 5 7021-8 ####[facility] LABIA [id number] [place] [address] [place] RBC (Bld) [#/Vol] 4.24 10*6/uL Normal 4.20-6.00 [facility] Comment on above: Order Comment: Speci men Type: BLOOD SPECIMENOrdering Facility: [facility] Address: [address] [place] [address] Performed By: #### 5 7021-8 ####[facility] LABIA [id number] [place] [address] [place] WBC (Bld) [#/Vol] 6.32 10*3/uL Normal 3.70-11.00 [facility] Comment on above: Order Comment: Speci men Type: BLOOD SPECIMENOrdering Facility: [facility] Address: [address] [place] [address] Performed By: #### 5 7021-8 ####[facility] [id number] [place] [address] [place] Comprehensive metabolic 2000 panelon 05-31-2024 Albumin [Mass/Vol] 3.7 g/dL Low 3.9-4.9 [facility] Comment on above: Order Comment: Speci men Type: BLOOD SPECIMENOrdering Facility: [facility] Address: [address] [place] [address] Performed By: #### 2 4323-8, 21059-4, 2276-4, 3016-3 ####[facility] [id number] [place] [address] [place] ALP [Catalytic activity/Vol] 57 U/L Normal 38-113 [facility] Comment on above: Order Comment: Speci men Type: BLOOD SPECIMENOrdering Facility: [facility] Address: [address] [place] [address] Performed By: #### 2 4323-8, 34554-0, 2276-4, 3016-3 ####[facility] LABCLIA [id number] [place] [address] [place] ALT [Catalytic activity/Vol] 22 U/L Normal 10-54 [facility] Comment on above: Order Comment: Speci men Type: BLOOD SPECIMENOrdering Facility: [facility] Address: [address] [place] [address] Performed By: #### 2 4323-8, 98119-8, 2276-4, 3016-3 ####[facility] LABIA [id number] [place] [address] [place] Anion gap [Moles/Vol] 10 mmol/L Normal 8-15 [facility] Comment on above: Order Comment: Speci men Type: BLOOD SPECIMENOrdering Facility: [facility] Address: [address] [place] [address] Performed By: #### 2 4323-8, 46769-5, 2276-4, 3016-3 ####[facility] LABIA [id number] [place] [address] [place] AST [Catalytic activity/Vol] 27 U/L Normal 14-40 [facility] Comment on above: Order Comment: Speci men Type: BLOOD SPECIMENOrdering Facility: [facility] Address: [address] [place] [address] Performed By: #### 2 4323-8, 73392-2, 2276-4, 3016-3 ####[facility] LABIA [id number] [place] [address] [place] Bilirubin [Mass/Vol] 0.8 mg/dL Normal 0.2-1.3 [facility] Comment on above: Order Comment: Speci men Type: BLOOD SPECIMENOrdering Facility: [facility] Address: [address] [place] [address] Performed By: #### 2 4323-8, 86901-5, 2276-4, 3016-3 ####[facility] LABCLIA [id number] [address] [address] [place] Calcium [Mass/Vol] 9.3 mg/dL Normal 8.5-10.2 [facility] Comment on above: Order Comment: Speci men Type: BLOOD SPECIMENOrdering Facility: [facility] Address: [address] [place] [address] Performed By: #### 2 4323-8, 58220-9, 2276-4, 3016-3 ####[facility] LABIA [id number] [place] [address] [place] Chloride [Moles/Vol] 100 mmol/L Normal 98-107 [facility] Comment on above: Order Comment: Speci men Type: BLOOD SPECIMENOrdering Facility: [facility] Address: [address] [place] [address] Performed By: #### 2 4323-8, 78289-0, 2276-4, 3016-3 ####[facility] LABIA [id number] [place] [id number] [place] CO2 [Moles/Vol] 27 mmol/L Normal 22-30 [facility] Comment on above: Order Comment: Speci men Type: BLOOD SPECIMENOrdering Facility: [facility] Address: [address] [place] [address] Performed By: #### 2 4323-8, 72494-1, 2276-4, 3016-3 ####[facility] LABIA [id number] [place] [id number] [place] Creatinine [Mass/Vol] 1.36 mg/dL High 0.73-1.22 [facility] Comment on above: Order Comment: Speci men Type: BLOOD SPECIMENOrdering Facility: [facility] Address: [address] [place] [address] Performed By: #### 2 4323-8, 13790-0, 2276-4, 3016-3 ####[facility] LABIA [id number] [place] [address] [place] Creatinine and Glomerular filtration rate.predicted panel (S/P/Bld) 51 mL/min/1.73m??? Low >=60 [facility] Comment on above: Order Comment: Ian lassiter Type: BLOOD SPECIMENOrdering Facility: [facility] Address: [address] [place] [address] Result Comment: Keara mated Glomerular Filtration Rate [...] actual GFR. Performed By: #### 2 4323-8, 55201-8, 2276-4, 3016-3 ####[facility] LABIA [id number] [place] [address] [place] Glucose [Mass/Vol] 101 mg/dL High 74-99 [facility] Comment on above: Order Comment: Ian lassiter Type: BLOOD SPECIMENOrdering Facility: [facility] Address: [address] [place] [address] Result Comment: The [place] Diabetes Association (ADA) provides guidance for cutoff [...] Standards of Medical Care in Diabetes 2016, [place] [employer] Association. Diabetes Care. 2016.39(Suppl 1). Performed By: #### 2 4323-8, 80200-1, 2276-4, 3016-3 ####[facility] LABIA [id number] [address] [address] [place] Potassium [Moles/Vol] 4.1 mmol/L Normal 3.7-5.1 [facility] Comment on above: Order Comment: Speci men Type: BLOOD SPECIMENOrdering Facility: [facility] Address: [address] [place] [address] Performed By: #### 2 4323-8, 90288-3, 6-4, 3016-3 ####[facility] LABIA [id number] [place] [address] [place] Protein [Mass/Vol] 7.0 g/dL Normal 6.3-8.0 [facility] Comment on above: Order Comment: Speci men Type: BLOOD SPECIMENOrdering Facility: [facility] Address: [address] [place] [address] Performed By: #### 2 4323-8, 77956-1, 6-4, 3016-3 ####[facility] LABIA [id number] [place] [id number] [place] Sodium [Moles/Vol] 137 mmol/L Normal 136-144 [facility] Comment on above: Order Comment: Speci men Type: BLOOD SPECIMENOrdering Facility: [facility] Address: [address] [place] [address] Performed By: #### 2 4323-8, 72820-6, 2276-4, 3016-3 ####[facility] LABIA [id number] [place] [id number] [place] Urea nitrogen [Mass/Vol] 31 mg/dL High 9-24 [facility] Comment on above: Order Comment: Speci men Type: BLOOD SPECIMENOrdering Facility: [facility] Address: [address] [place] [address] Performed By: #### 2 4323-8, 63758-7, 6-4, 6-3 ####[facility] LABCLIA [id number] [address] [address] [place] Ferritin SerPl-ncon 2023 Ferritin [Mass/Vol] 297.0 ng/mL Normal 30.3-565.7 [facility] Comment on above: Order Comment: Speci men Type: BLOOD SPECIMENOrdering Facility: [facility] Address: [address] [place] [id number] Performed By: #### 2 4323-8, 11734-7, 2275-4, 6-3 ####[facility] LABCLIA [id number] [place] [id number] [place] Iron and Iron binding capaci panel 05-31-2024 Iron [Mass/Vol] 93 ug/dL Normal 41-186 [facility] Comment on above: Order Comment: Speci men Type: BLOOD SPECIMENOrdering Facility: [facility] Address: [address] [place] [id number] Performed By: #### 2 4323-8, 55509-9, 2275-4, 6-3 ####[facility] LABCLIA [id number] [place] [id number] [place] Iron binding capacity [Mass/Vol] 271 ug/dL Normal 232-386 [facility] Comment on above: Order Comment: Speci men Type: BLOOD SPECIMENOrdering Facility: [facility] Address: [address] [place] [address] Performed By: #### 2 4323-8, 03183-1, 6-4, 6-3 ####[facility] LABCLIA [id number] [address] [address] [place] Iron/TIBC [Molar ratio] 34.3 % Normal 15.0-57.0 [facility] Comment on above: Order Comment: Speci men Type: BLOOD SPECIMENOrdering Facility: [facility] Address: [address] [place] [address] Performed By: #### 2 4323-8, 28907-5, 2276-4, 3016-3 ####[facility] LABCLIA [id number] [place] [address] [place] TSH SerPl-aCncon 05-31-2024 TSH Qn 4.400 m[IU]/L High 0.270-4.200 [facility] Comment on above: Order Comment: Speci men Type: BLOOD SPECIMENOrdering Facility: [facility] Address: [address] [place] [address] Performed By: #### 2 4323-8, 65396-1, 2276-4, 3016-3 ####[facility] LABCLIA [id number] [place] [address] [place] Urinalysis complete panel (U )on 05-31-2024 Bacteria LM.HPF (Urine sed) [#/Area] Negative Normal Negative [facility] Comment on above: Order Comment: Speci men Type: URINE SPECIMENOrdering Facility: [facility] Address: [address] [place] [address] Performed By: #### 2 4356-8 ####[facility] LABCLIA [id number] [place] [address] [place] Bilirubin Ql (U) Negative Normal Negative [facility] Comment on above: Order Comment: Speci men Type: URINE SPECIMENOrdering Facility: [facility] Address: [address] [place] [address] Performed By: #### 2 4356-8 ####[facility] LABCLIA [id number] [place] [address] [place] Clarity (Unsp spec) Clear Normal Clear [facility] Comment on above: Order Comment: Speci men Type: URINE SPECIMENOrdering Facility: [facility] Address: [address] [place] [address] Performed By: #### 2 4356-8 ####[facility] LABCLIA [id number] [place] [address] [place] Color (U) Yellow Normal Yellow [facility] Comment on above: Order Comment: Speci men Type: URINE SPECIMENOrdering Facility: [facility] Address: [address] [place] [address] Performed By: #### 2 4356-8 ####[facility] LABIA [id number] [place] [address] [place] Epithelial cells LM.HPF (Urine sed) [#/Area] None Seen Normal [facility] Comment on above: Order Comment: Speci men Type: URINE SPECIMENOrdering Facility: [facility] Address: [address] [place] [address] Performed By: #### 2 4356-8 ####[facility] LABIA [id number] [place] [address] [place] Glucose Test strip (U) [Mass/Vol] Negative Normal Negative [facility] Comment on above: Order Comment: Speci men Type: URINE SPECIMENOrdering Facility: [facility] Address: [address] [place] [address] Performed By: #### 2 4356-8 ####[facility] LABIA [id number] [place] [address] [place] Hemoglobin Ql (U) Negative Normal Negative [facility] Comment on above: Order Comment: Speci men Type: URINE SPECIMENOrdering Facility: [facility] Address: [address] [place] [address] Performed By: #### 2 4356-8 ####[facility] LABCLIA [id number] [place] [address] [place] Hyaline casts (Urine sed) [#/Area] 1-3 /LPF Abnormal 0 /LPF [facility] Comment on above: Order Comment: Speci men Type: URINE SPECIMENOrdering Facility: [facility] Address: [address] [place] [address] Performed By: #### 2 4356-8 ####[facility] LABCLIA [id number] [place] [address] [place] Ketones Ql (U) Negative Normal Negative [facility] Comment on above: Order Comment: Speci men Type: URINE SPECIMENOrdering Facility: [facility] Address: [address] [place] [address] Performed By: #### 2 4356-8 ####[facility] LABCLIA [id number] [place] [address] [place] Leukocyte esterase Test strip Ql (U) Negative Normal Negative [facility] Comment on above: Order Comment: Speci men Type: URINE SPECIMENOrdering Facility: [facility] Address: [address] [place] [address] Performed By: #### 2 4356-8 ####[facility] LABCLIA [id number] [place] [address] [place] Nitrite Ql (U) Negative Normal Negative [facility] Comment on above: Order Comment: Speci men Type: URINE SPECIMENOrdering Facility: [facility] Address: [address] [place] [address] Performed By: #### 2 4356-8 ####[facility] LABCLIA [id number] [place] [address] [place] pH (U) 6.5 [pH] Normal <8.5 [facility] Comment on above: Order Comment: Speci men Type: URINE SPECIMENOrdering Facility: [facility] Address: [address] [place] [address] Performed By: #### 2 4356-8 ####[facility] LABCLIA [id number] [place] [address] [place] Protein (U) [Mass/Vol] Negative Normal Negative [facility] Comment on above: Order Comment: Speci men Type: URINE SPECIMENOrdering Facility: [facility] Address: [address] [place] [address] Performed By: #### 2 4356-8 ####[facility] LABIA [id number] [place] [address] [place] RBC LM.HPF (Urine sed) [#/Area] 0-2 /HPF Normal 0-2 /HPF [facility] Comment on above: Order Comment: Speci men Type: URINE SPECIMENOrdering Facility: [facility] Address: [address] [place] [address] Performed By: #### 2 4356-8 ####[facility] [id number] [place] [address] [place] Specific gravity (U) [Rel density] 1.016 Normal 1.005-1.030 [facility] Comment on above: Order Comment: Speci men Type: URINE SPECIMENOrdering Facility: [facility] Address: [address] [place] [address] Performed By: #### 2 4356-8 ####[facility] LABIA [id number] [place] [address] [place] Urobilinogen Ql (U) 1.0 EU/dL Normal 0.2-1.0 EU/dL [facility] Comment on above: Order Comment: Speci men Type: URINE SPECIMENOrdering Facility: [facility] Address: [address] [place] [address] Performed By: #### 2 4356-8 ####[facility] LABIA [id number] [place] [address] [place] WBC LM.HPF (Urine sed) [#/Area] 0-5 /HPF Normal 0-5 /HPF [facility] Comment on above: Order Comment: Speci men Type: URINE SPECIMENOrdering Facility: [facility] Address: [address] [place] [address] Performed By: #### 2 4356-8 ####[facility] LABCLIA [id number] [place] [address] [place] Vit B12 SerPl[facility]2 024 Cobalamin (Vitamin B12) [Mass/Vol] 1487 pg/mL High 232-1245 [facility] Comment on above: Order Comment: Speci men Type: BLOOD SPECIMENOrdering Facility: [facility] Address: [address] [place] [address] Performed By: #### 2 132-9 ####[facility] LABCLIA [id number] [place] [address] [place] Brain without Contraston Brain without Contrast [facility] [address] [place] [id number] Brain without Contrast MR#: [id number] Acct: [id number] Name: LEANA CAMEJO Rep #: [id number] : 1940 M 84 From: Valerie yates MD PCP: Dr. Dallas Reed MD Status: ADM ELSIE Study: Brain without Contrast Date of Exam: 05/24/24 Exam# [id number] Ordering Dr: Margy Stark MD [id number] HISTORY: CVA, C/I DIZZINESS, OFF BALANCE. TECHNIQUE: [...] Margy Stark MD; Dr. Dallas Reed MD Whizzer Hand: Signed Normal [facility] CBC W/Diff, Automatedon 09- SMEAR COMMENT COMMENT Normal [facility] Comment on above: Result Comment: THRO MBOCYTOPENIA Performed By: #### L 501.9520, L501.9985, L500.4050, L100.0100, L500.4100 ####[facility] [address] [place], [address] Comprehensive Metabolic Prof ilon 05-24-2024 Albumin [Mass/Vol] 2.8 g/dL Low 3.2-5.0 [facility] Comment on above: Order Comment: Comme nts: NPO at [place] prior to lipid panel Performed By: #### L 501.9520, L501.9985, L500.4050, L100.0100, L500.4100 ####[facility] [address] [place], [address] Albumin/Globulin [Mass ratio] 0.8 {ratio} Low 0.9-2.4 [facility] Comment on above: Order Comment: Comme nts: NPO at [place] prior to lipid panel Performed By: #### L 501.9520, L501.9985, L500.4050, L100.0100, L500.4100 ####[facility] [address] [place], [address] ALK P 52 U/L Normal 45-117 [facility] Comment on above: Order Comment: Comme nts: NPO at [place] prior to lipid panel Performed By: #### L 501.9520, L501.9985, L500.4050, L100.0100, L500.4100 ####[facility] [address] [place], [address] ALT [Catalytic activity/Vol] 22 U/L Normal 16-61 [facility] Comment on above: Order Comment: Comme nts: NPO at [place] prior to lipid panel Performed By: #### L 501.9520, L501.9985, L500.4050, L100.0100, L500.4100 ####[facility] [address] [place], [address] AST [Catalytic activity/Vol] 21 U/L Normal 15-37 [facility] Comment on above: Order Comment: Comme nts: NPO at [place] prior to lipid panel Performed By: #### L 501.9520, L501.9985, L500.4050, L100.0100, L500.4100 ####[facility] [address] [place], [address] Bilirubin [Mass/Vol] 0.70 mg/dL Normal 0.20-1.00 [facility] Comment on above: Order Comment: Comme nts: NPO at [place] prior to lipid panel Result Comment: For patients on eltrombopag therapy, use of Dimension [place] TBIL is not recommended. Performed By: #### L 501.9520, L501.9985, L500.4050, L100.0100, L500.4100 ####[facility] [address] [place], [address] BUN/CRE 23.0 RATIO High 10-20 [facility] Comment on above: Order Comment: Comme nts: NPO at [place] prior to lipid panel Performed By: #### L 501.9520, L501.9985, L500.4050, L100.0100, L500.4100 ####[facility] [address] [place], [address] CA,Total 8.5 mg/dL Normal 8.5-10.1 [facility] Comment on above: Order Comment: Comme nts: NPO at [place] prior to lipid panel Performed By: #### L 501.9520, L501.9985, L500.4050, L100.0100, L500.4100 ####[facility] [address] [place], [address] Chloride [Moles/Vol] 110 mmol/L High 98-107 [facility] Comment on above: Order Comment: Comme nts: NPO at [place] prior to lipid panel Performed By: #### L 501.9520, L501.9985, L500.4050, L100.0100, L500.4100 ####[facility] [address] [place], [address] CO2 [Moles/Vol] 25.0 mmol/L Normal 21.0-32.0 [facility] Comment on above: Order Comment: Comme nts: NPO at [place] prior to lipid panel Performed By: #### L 501.9520, L501.9985, L500.4050, L100.0100, L500.4100 ####[facility] [address] [place], [address] Creatinine [Mass/Vol] 1.26 mg/dL Normal 0.70-1.30 [facility] Comment on above: Order Comment: Comme nts: NPO at [place] prior to lipid panel Result Comment: The validity of the calculated GFR GFRAA in patients over 70 years has not been determined. Clinical correlation is essential. Performed By: #### L 501.9520, L501.9985, L500.4050, L100.0100, L500.4100 ####[facility] [address] [place], [address] ECRCL 42.22 ml/min Normal [facility] Comment on above: Order Comment: Comme nts: NPO at [place] prior to lipid panel Performed By: #### L 501.9520, L501.9985, L500.4050, L100.0100, L500.4100 ####[facility] [address] [place], [address] EST GFR - AA 70 mL/min Normal >60 [facility] Comment on above: Order Comment: Comme nts: NPO at [place] prior to lipid panel Result Comment: Afri can [place] GFR Calc Performed By: #### L 501.9520, L501.9985, L500.4050, L100.0100, L500.4100 ####[facility] [address] [place], [address] GAP 6 Normal 5-15 [facility] Comment on above: Order Comment: Comme nts: NPO at [place] prior to lipid panel Performed By: #### L 501.9520, L501.9985, L500.4050, L100.0100, L500.4100 ####[facility] [address] [place], [address] GFR/1.73 sq M.predicted among non-blacks MDRD (S/P/Bld) [Vol rate/Area] 58 mL/min/{1.73_m2} Low >60 [facility] Comment on above: Order Comment: Comme nts: NPO at [place] prior to lipid panel Result Comment: Non- GFR Calc Performed By: #### L 501.9520, L501.9985, L500.4050, L100.0100, L500.4100 ####[facility] [address] [place], [address] Globulin (S) [Mass/Vol] 3.5 g/dL Normal 2.2-4.2 [facility] Comment on above: Order Comment: Comme nts: NPO at [place] prior to lipid panel Performed By: #### L 501.9520, L501.9985, L500.4050, L100.0100, L500.4100 ####[facility] [address] [place], [address] Glucose [Mass/Vol] 91 mg/dL Normal 74-106 [facility] Comment on above: Order Comment: Comme nts: NPO at [place] prior to lipid panel Performed By: #### L 501.9520, L501.9985, L500.4050, L100.0100, L500.4100 ####[facility] [address] [place], [address] Potassium [Moles/Vol] 3.6 mmol/L Normal 3.5-5.1 [facility] Comment on above: Order Comment: Comme nts: NPO at [place] prior to lipid panel Performed By: #### L 501.9520, L501.9985, L500.4050, L100.0100, L500.4100 ####[facility] [address] [place], [address] Sodium [Moles/Vol] 141 mmol/L Normal 136-145 [facility] Comment on above: Order Comment: Comme nts: NPO at [place] prior to lipid panel Performed By: #### L 501.9520, L501.9985, L500.4050, L100.0100, L500.4100 ####[facility] [address] [place], [address] T PROT 6.3 g/dL Low 6.4-8.2 [facility] Comment on above: Order Comment: Comme nts: NPO at [place] prior to lipid panel Performed By: #### L 501.9520, L501.9985, L500.4050, L100.0100, L500.4100 ####[facility] [address] [place], [address] Urea nitrogen [Mass/Vol] 29 mg/dL High 7-18 [facility] Comment on above: Order Comment: Comme nts: NPO at [place] prior to lipid panel Performed By: #### L 501.9520, L501.9985, L500.4050, L100.0100, L500.4100 ####[facility] [address] [place], [address] Discharge Instructionon Discharge Instruction [facility] Medical Records Department [address] [place] [address] Instructions for Home/Discharge Instructions 05/24/24 1136 MR#: [id number] Acct: [id number] Name: LEANA CAMEJO Rep #: [id number] : 1940 84 From: Brant Alcantara MD [...] [employer] Providers: Alverto Cooley; Susan Iasac; Alia Santiago; Carine Rodríguez; Jaky Belle; John [...] Guerra DO; Diogenes Ashton MD Signed Normal [facility] Hemoglobin A1con 05-24-2024 HbA1c (Bld) [Mass fraction] 4.8 % Normal 3.8-5.6 [facility] Comment on above: Result Comment: Norm al < 5.7 % Prediabetic 5.7 - 6.4 % Diabetic >or= 6.5 % Please note range changes. Performed By: #### L 501.9520, L501.9985, L500.4050, L100.0100, L500.4100 ####[facility] [address] [place], [address] Lipid Profileon 05-24-2024 Cholesterol [Mass/Vol] 180 mg/dL Normal 200 [facility] Comment on above: Order Comment: Comme nts: NPO at [place] prior to lipid panel Result Comment: <200 mg/dL Desirable 200-240 mg/dL Borderline >240 mg/dL High Risk Performed By: #### L 501.9520, L501.9985, L500.4050, L100.0100, L500.4100 ####[facility] [address] [place], [address] Cholesterol in HDL [Mass/Vol] 44 mg/dL Normal [facility] Comment on above: Order Comment: Comme nts: NPO at [place] prior to lipid panel Result Comment: The drugs N-Acetylcysteine and Metamizole may falsely depress this assay. Reference Range HDL <40 mg/dL Low HDL Cholesterol HDL >or= 60 mg/dL High HDL Cholesterol Performed By: #### L 501.9520, L501.9985, L500.4050, L100.0100, L500.4100 ####[facility] [address] [place], [address] Cholesterol in LDL [Mass/Vol] 121 mg/dL Normal 0-130 [facility] Comment on above: Order Comment: Comme nts: NPO at [place] prior to lipid panel Performed By: #### L 501.9520, L501.9985, L500.4050, L100.0100, L500.4100 ####[facility] [address] [place], [address] Cholesterol in VLDL [Mass/Vol] 15 mg/dL Normal 5-40 [facility] Comment on above: Order Comment: Comme nts: NPO at [place] prior to lipid panel Performed By: #### L 501.9520, L501.9985, L500.4050, L100.0100, L500.4100 ####[facility] [address] [place], [address] Triglyceride [Mass/Vol] 76 mg/dL Normal [facility] Comment on above: Order Comment: Comme nts: NPO at [place] prior to lipid panel Result Comment: The drugs N-Acetylcysteine and Metamizole may falsely depress this assay. Serum Triglycerides Reference Interval Normal <150 mg/dL Borderline high 150 - 199 mg/dL High 200 - 499 mg/dL Very High > or = 500 mg/dL Performed By: #### L 501.9520, L501.9985, L500.4050, L100.0100, L500.4100 ####[facility] [address] [place], [address] MR/CON.PCM.NEon 05-24-2024 MR/CON.PCM.NE [facility] Medical Records Department [address] [place] [address] Consultation - Neurology 05/24/24 1237 MR#: [id number] Acct: [id number] Name: LEANA CAMEJO Rep #: [id number] : 1940 84 From: Roula Polk MD PCP: Dr. Dallas Reed MD Status:DIS ELSIE Location: [place] [address] Assessment and Plan: Neuro Assessment/Plan LEANA CAMEJO [...] appropriate treatment and workup. Roula Polk MD [facility] Teleneurology dept HPI Consult Data Date of [...] On my evaluation , patient's symptoms resolved. [facility] Medical History History of echocardiogram Easy bruising [...] (From Allergy Other Verified 05/23/24 15:46 Crestor) Hbphpjn-WVK-NpC Reductase Allergy Other Verified 05/23/24 15:46 Inhibitor (Statins (more content not included)... Normal [facility] Thyroid Stim Hormone (TSH)on 05-24-2024 TSH 3.380 uIU/mL Normal 0.358-3.740 [facility] Comment on above: Order Comment: Comme nts: NPO at [place] prior to lipid panel Performed By: #### L 501.3006, L501.9985, L500.4050, L100.0100, L500.4100 ####[facility] [address] [place], [address] 12 Lead EKGon 05-23-2024 12 Lead EKG [facility] Cardiovascular Services [address] [place] [address] 12 Lead EKG 05/23/24 1630 MR#: [id number] Acct: [id number] Name: LEANA CAMEJO Rep #: [id number] : 1940 84 From: Donato Longoria MD Attending Dr: Dr. Brant Alcantara MD Status: DIS ELSIE Ordering Dr: Ganga Benito DO Date: 05/23/24 Location: [facility] Sex: M C Admitted: 05/23/24 Test Reason [...] Borderline ECG Confirmed by ISAIAH LAWTON, DONATO ([id number]), editor school photograph BENITA NUNN ([id number]) on 05/25/2024 1:45:12 PM Referred By: SAUL Confirmed By:DONATO LONGORIA MD 05/25/24 1345 Date Donato Longoria MD CC: Dr. Brant Alcantara MD; Dr. Ganga Benito DO; Dr. Dallas Reed MD Signed Normal [facility] Basic Metabolic Profile (BMP )on 05-23-2024 BUN/CRE 25.8 RATIO High 10-20 [facility] Comment on above: Performed By: #### L 100.0100, L300.3900, L300.4310, L500.2500 ####[facility] [address] [place], [address] CA,Total 9.8 mg/dL Normal 8.5-10.1 [facility] Comment on above: Performed By: #### L 100.0100, L300.3900, L300.4310, L500.2500 ####[facility] [address] [place], [address] Chloride [Moles/Vol] 108 mmol/L High 98-107 [facility] Comment on above: Performed By: #### L 100.0100, L300.3900, L300.4310, L500.2500 ####[facility] [address] [place], [address] CO2 [Moles/Vol] 26.0 mmol/L Normal 21.0-32.0 [facility] Comment on above: Performed By: #### L 100.0100, L300.3900, L300.4310, L500.2500 ####[facility] [address] [place], [address] Creatinine [Mass/Vol] 1.32 mg/dL High 0.70-1.30 [facility] Comment on above: Result Comment: The validity of the calculated GFR GFRAA in patients over 70 years has not been determined. Clinical correlation is essential. Performed By: #### L 100.0100, L300.3900, L300.4310, L500.2500 ####[facility] [address] [place], [address] ECRCL 40.30 ml/min Normal [facility] Comment on above: Performed By: #### L 100.0100, L300.3900, L300.4310, L500.2500 ####[facility] [address] [place], [address] EST GFR - AA 66 mL/min Normal >60 [facility] Comment on above: Result Comment: Afri can [place] GFR Calc Performed By: #### L 100.0100, L300.3900, L300.4310, L500.2500 ####[facility] [address] [place], [address] GAP 7 Normal 5-15 [facility] Comment on above: Performed By: #### L 100.0100, L300.3900, L300.4310, L500.2500 ####[facility] [address] [place], [address] GFR/1.73 sq M.predicted among non-blacks MDRD (S/P/Bld) [Vol rate/Area] 55 mL/min/{1.73_m2} Low >60 [facility] Comment on above: Result Comment: Non- GFR Calc Performed By: #### L 100.0100, L300.3900, L300.4310, L500.2500 ####[facility] [address] [place], [address] Glucose [Mass/Vol] 122 mg/dL High 74-106 [facility] Comment on above: Result Comment: Fast ing Glucose result from 100 to 125 mg/dL suggests IMPAIRED HOMEOSTASIS per A.D.A. criteria. Performed By: #### L 100.0100, L300.3900, L300.4310, L500.2500 ####[facility] [address] [place], [address] Potassium [Moles/Vol] 4.1 mmol/L Normal 3.5-5.1 [facility] Comment on above: Performed By: #### L 100.0100, L300.3900, L300.4310, L500.2500 ####[facility] [address] [place], [address] Sodium [Moles/Vol] 141 mmol/L Normal 136-145 [facility] Comment on above: Performed By: #### L 100.0100, L300.3900, L300.4310, L500.2500 ####[facility] [address] [place], [address] Urea nitrogen [Mass/Vol] 34 mg/dL High 7-18 [facility] Comment on above: Performed By: #### L 100.0100, L300.3900, L300.4310, L500.2500 ####[facility] [address] [place], [address] CBC W/Diff, Automatedon 09-0 3-2023 Absolute Lymph 0.99 X10 3/uL Normal 0.83-4.51 [facility] Comment on above: Performed By: #### L 100.0100, L300.3900, L300.4310, L500.2500 #### [facility] [address] [place], [address] Absolute Neut 3.7 X10 3/uL Normal 2.0-7.7 [facility] Comment on above: Performed By: #### L 100.0100, L300.3900, L300.4310, L500.2500 #### [facility] [address] [place], [address] Basophils/100 WBC (Bld) 0.4 % Normal 0-1 [facility] Comment on above: Performed By: #### L 100.0100, L300.3900, L300.4310, L500.2500 #### [facility] [address] [place], [address] Eosinophils/100 WBC (Bld) 0.6 % Normal 0-5 [facility] Comment on above: Performed By: #### L 100.0100, L300.3900, L300.4310, L500.2500 #### [facility] [address] [place], [address] Erythrocyte distribution width (RBC) [Ratio] 15.6 % High 11.6-14.6 [facility] Comment on above: Performed By: #### L 100.0100, L300.3900, L300.4310, L500.2500 #### [facility] [address] [place], [address] Hematocrit (Bld) [Volume fraction] 41.6 % Normal 40-54 [facility] Comment on above: Performed By: #### L 100.0100, L300.3900, L300.4310, L500.2500 #### [facility] [address] [place], [address] Hemoglobin (Bld) [Mass/Vol] 13.2 g/dL Normal 13.0-16.5 [facility] Comment on above: Performed By: #### L 100.0100, L300.3900, L300.4310, L500.2500 #### [facility] [address] [place], [address] IG% 0.400 Normal 0.0-0.9 [facility] Comment on above: Result Comment: IG% - Immature Granulocytes (promyelocytes, myelocytes and metamyelocytes) > 1% indicates that a LEFT SHIFT is Present. Performed By: #### L 100.0100, L300.3900, L300.4310, L500.2500 #### [facility] [address] [place], [address] Lymphocytes/100 WBC (Bld) 19.0 % Normal 19-41 [facility] Comment on above: Performed By: #### L 100.0100, L300.3900, L300.4310, L500.2500 #### [facility] [address] [place], [address] MCH (RBC) [Entitic mass] 28.8 pg Normal 27.0-32.0 [facility] Comment on above: Performed By: #### L 100.0100, L300.3900, L300.4310, L500.2500 #### [facility] [address] [place], [address] MCHC (RBC) [Mass/Vol] 31.7 g/dL Low 32-36 [facility] Comment on above: Performed By: #### L 100.0100, L300.3900, L300.4310, L500.2500 #### [facility] [address] [place], [address] MCV (RBC) [Entitic vol] 90.6 fL Normal 80-94 [facility] Comment on above: Performed By: #### L 100.0100, L300.3900, L300.4310, L500.2500 #### [facility] [address] [place], [address] Monocytes/100 WBC (Bld) 8.1 % Normal 0-10 [facility] Comment on above: Performed By: #### L 100.0100, L300.3900, L300.4310, L500.2500 #### [facility] [address] [place], [address] Neutrophils/100 WBC (Bld) 71.5 % High 47-70 [facility] Comment on above: Performed By: #### L 100.0100, L300.3900, L300.4310, L500.2500 #### [facility] [address] [place], [address] Nucleated RBC (Bld) [#/Vol] 0 10*3/uL Normal 0-5 [facility] Comment on above: Performed By: #### L 100.0100, L300.3900, L300.4310, L500.2500 #### [facility] [address] [place], [address] Platelet mean volume (Bld) [Entitic vol] 10.2 fL Normal 6.2-12.0 [facility] Comment on above: Performed By: #### L 100.0100, L300.3900, L300.4310, L500.2500 #### [facility] [address] [place], [address] Platelets (Bld) [#/Vol] 108 10*3/uL Low 150-450 [facility] Comment on above: Performed By: #### L 100.0100, L300.3900, L300.4310, L500.2500 #### [facility] [address] [place], [address] RBC (Bld) [#/Vol] 4.59 10*6/uL Low 4.6-6.2 [facility] Comment on above: Performed By: #### L 100.0100, L300.3900, L300.4310, L500.2500 #### [facility] [address] [place], [address] RDW SD 52.4 fl High 35.1-43.9 [facility] Comment on above: Performed By: #### L 100.0100, L300.3900, L300.4310, L500.2500 #### [facility] [address] [place], [address] WBC (Bld) [#/Vol] 5.2 10*3/uL Normal 4.4-11.0 [facility] Comment on above: Performed By: #### L 100.0100, L300.3900, L300.4310, L500.2500 #### [facility] [address] [place], [address] CNOVon 05-23-2024 CNOV Normal [facility] CNPNon 05-23-2024 CNPN Normal [facility] CTA Head AND Neck W/ Contras ton 05-23-2024 CTA Head AND Neck W/ Contrast [facility] Imaging Services [address] [place] [address] CTA Head AND Neck W/ Contrast MR#: [id number] Acct: [id number] Name: LEANA CAMEJO Rep #: [id number] : 1940 M 84 From: Ana Palomino PCP: Dr. Dallas Reed MD Status: REG Study: CTA Head AND Neck W/ Contrast Date of Exam: Exam# [id number] Ordering Dr: Ganga Benito DO [id number] STUDY: CTA HEAD AND NECK WITH CONTRAST [...] There is no demonstrated aneurysm of the [place]. There is no demonstrated abnormality [...] 19:04 EDT Reading Location ID and State: [facility] / [place] Tel , Service support , CC: Dr. Ganga Benito DO; Dr. Dallas Reed MD Whizzer Hand: Signed Normal [facility] Chest 1 View (Portable)on Chest 1 View (Portable) [facility] Imaging Services [address] [place] [id number] Chest 1 View (Portable) MR#: [id number] Acct: [id number] Name: LEANA CAMEJO Rep #: [id number] : 1940 M 84 From: Ana Palomino PCP: Dr. Dallas Reed MD Status: PRE ER Study: Chest 1 View (Portable) Date of Exam: 05/23/24 Exam# [id number] Ordering Dr: Ganga Benito DO [id number] STUDY: X-RAY CHEST REASON FOR EXAM: Male, [...] 17:16 EDT Reading Location ID and State: [address] [place] [address] Tel , Service support , CC: Dr. Ganga Benito DO; Dr. Dallas Reed MD Whizzer Hand: Signed Normal [facility] Echo Completeon 05-23-2024 Echo Complete [facility] Cardiovascular Services [address] [place] [address] Echo Complete 05/24/24 0855 MR#: [id number] Acct: [id number] Name: LEANA CAMEJO Rep #: [id number] : 1940 84 From: Donato Longoria MD Attending Dr: Dr. Brant Alcantara MD Status: ADM ELSIE Ordering Dr: Margy Stark MD Date: 05/23/24 Location: [facility] Sex: M C Admitted: 05/23/24 Reason For [...] Date Dictated: 05/24/24854 Date Transcribed: 05/24/24 102 Whizzer Hand: Signed Normal [facility] Emergency Department Summary on 05-23-2024 Emergency Department Summary [facility] Medical Records Department [address] [place] [address] Emergency Department Summary 05/23/24 MR#: [id number] Acct: [id number] Name: LEANA CAMEJO Rep #: [id number] : 1940 84 From: Ganga Benito DO PCP: Dr. Dallas Reed MD Status:REG ER Location: ED HPI History of Present Illness Chief Complaint: Dizziness PFSH [facility] Medical History Abdominal aortic 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 [...] (From Allergy Other Verified 05/23/24 15:46 Crestor) Vlcyips-ITB-PuC Reductase Allergy Other Verified 05/23/24 15:46 Inhibitor (Ggaazri-Ler-Cib Reductase Inhibitor) Family History Father Lung cancer [...] H 174/79 (more content not included)... Normal [facility] H AND P Exam - Hospitaliston 05-23-2024 H&P Exam - Hospitalist [facility] Medical Records Department [address] [facility] [place] [address] H P Exam - Hospitalist 05/23/241958 MR#: [id number] Acct: [id number] Name: LEANA CAMEJO Rep #: [id number] : 1940 84 From: Margy Stark MD [...] per GFR trending who presents to the [facility] ED on 05/23/2024 with history of feeling [...] rhythm with no acute evidence of ischemia. [facility] Medical History History of echocardiogram Easy bruising [...] (From Allergy Other Verified 05/23/24 15:46 Crestor) Nvvkosg-IUB-DrO Reductase Allergy Other Verified 05/23/24 15:46 Inhibitor (Rubaiqj-Dmt-Wis Reductase Inhibitor) Family History Father Lung cancer Liver cancer Mother Oral cancer Surgical History (Updated 05/23/24 @ 20:[address] Margy Stark MD) S/P AAA repair History of right-sided carotid endarterectomy Hx of cataract surgery Hx of appendectomy History of tonsillectomy History of back surgery (more content not included)... Normal [facility] L501.4020on 05-23-2024 TROPONIN-I HS 34 pg/mL Normal 3.0-78.0 [facility] Comment on above: Order Comment: 'TROP ' Serial specimen #1, #2 or #3: 1 Result Comment: Plenila rose Note: New Test Units and Gender Specific Reference Ranges. For more information see Policy Stat Procedure [place] High Sensitivity Troponin (TNIH) and attachments. Performed By: #### L 501.4020 ####[facility] [address] [place], [address] Magnesiumon 05-23-2024 Magnesium [Mass/Vol] 2.4 mg/dL Normal 1.6-2.6 [facility] Comment on above: Order Comment: Comme nts: may add to ED labs Performed By: #### L 501.2450, L100.0100, BTS, L500.4050 #### [facility] [address] [place], [address] Partial Thromboplast Timeon 05-23-2024 aPTT Coag (Bld) [Time] 38.8 s High 24.1-36.2 [facility] Comment on above: Performed By: #### L 100.0100, L300.3900, L300.4310, L500.2500 ####[facility] [address] [place], [address] Prothrombin Time w/INRon INR Coag (PPP) [Relative time] 1.1 {INR} Normal [facility] Comment on above: Performed By: #### L 100.0100, L300.3900, L300.4310, L500.2500 ####[facility] [address] [place], [address] PT Coag (PPP) [Time] 14.0 s Normal 11.7-14.9 [facility] Comment on above: Performed By: #### L 100.0100, L300.3900, L300.4310, L500.2500 ####[facility] [address] [place], [address] No Panel Informationon 02-08 Radiology Study observation (narrative) [facility] XR Shoulder - left 3 Viewson 02-09-2024 IMPRESSION: Degenerative changes as described. Whizzer Hand: PSC[facility] Transcribe Date/Time: Feb 09 2024 4:46P Dictated by : JACKELIN KHAN MD This examination was interpreted and the report reviewed and electronically signed by: JACKELIN KHAN MD on Feb 09 2024 4:47PM [facility] DIVISION OF RADIOLOGY * * *Final [...] exposure partially visualized. DIVISION OF RADIOLOGY Provider, [facility] - 02/09/2024 * * *Final Report* * [...] visualized. IMPRESSION IMPRESSION: Degenerative changes as described. Whizzer Hand[facility] Transcribe Date/Time: Feb 09 2024 4:46P Dictated by : JACKELIN KHAN MD This examination was interpreted and the report reviewed and electronically signed by: JACKELIN KHAN MD on Feb 09 2024 4:47PM EST [facility] XR Shoulder - right 3 Viewso n 02-09-2024 IMPRESSION: Degenerative changes as described. Whizzer Hand: PSCB Transcribe Date/Time: Feb 09 2024 4:47P Dictated by : JACKELIN KHAN MD This examination was interpreted and the report reviewed and electronically signed by: JACKELIN KHAN MD on Feb 09 2024 4:48PM [facility] DIVISION OF RADIOLOGY * * *Final [...] exposure. DIVISION OF RADIOLOGY Provider, Yamila Inocente [facility] - 02/09/2024 * * *Final Report* [...] exposure. IMPRESSION IMPRESSION: Degenerative changes as described. Whizzer Hand: [facility] Transcribe Date/Time: Feb 09 2024 4:47P Dictated by : JACKELIN KHAN MD This examination was interpreted and the report reviewed and electronically signed by: JACKELIN KHAN MD on Feb 09 2024 4:48PM EST [facility] XR Shoulder - right 3 ViewsO rdered By: [facility] Provider on 02-09-2024 [facility] No Panel InformationOrdered By: Jovanny Rodriguez on 08-03-2023 Endomysial IgA Antibody Negative Negative [facility] Serum IgA measurement (units /volume)Ordered By: Jovanny Rodriguez on 08-03-2023 IgA Qn (S) 362 mg/dL 61-437 [facility] Comment on above: Performed at: [address] [id number] Director: Jovanny Walden PhD, Phone: [phone] Serum or plasma C reactive p rotein measurement (mass/volume)Ordered By: Jovanny Rodriguez on 08-03-2023 CRP [Mass/Vol] mg/L 0.0-3.0 [facility] Comment on above: C-Reactive Protein ( CRP) provides useful information for thediagnosis, therapy and monitoring of inflammatory processesand associated diseases. For the evaluation of Relative Riskfor Cardiovascular Disease, a High Sensitivity CRP (HSCRP)should be ordered. Serum tissue transglutaminas e IgA antibody assay (units/volume)Ordered By: Jovanny Rodriguez on 08-03-2023 tTG IgA Qn (S) <2 U/mL 0-3 [facility] Comment on above: Negative 0 - 3 Weak Positive 4 - 10 Positive >10 Tissue Transglutaminase (tTG) has been identified as the endomysial antigen. Studies have demonstr- ated that endomysial IgA antibodies have over 99% specificity for gluten sensitive enteropathy. Basophil percentageOrdered B y: Benita Reece on 05-26-2023 Creatinine [Mass/Vol] 1.1 mg/dL 0.70-1.30 [facility] No Panel InformationOrdered By: Benita Reece on 05-26-2023 Bedside Estimated GFR (eGFR) > 60.0000 mL/min >60 [facility] Basophil percentageOrdered B y: Omid Perez on 04-19-2023 Chloride [Moles/Vol] 104 mmol/L 98-107 [facility] Glucose [Mass/Vol] 102 mg/dL 74-106 [facility] Comment on above: Fasting Glucose resu lt from 100 to 125 mg/dL suggests IMPAIRED HOMEOSTASIS per A.D.A. criteria. Potassium [Moles/Vol] 3.7 mmol/L 3.5-5.1 [facility] Sodium [Moles/Vol] 139 mmol/L 136-145 [facility] - Chemistry and C hemistry - challengeOrdered By: Omid Perez on 04-19-2023 CO2 [Moles/Vol] 33.0 mmol/L 21.0-32.0 [facility] Urea nitrogen/Creatinine [Mass ratio] 18.7 mg/mg 10-20 [facility] No Panel InformationOrdered By: Omid Perez on 04-19-2023 Estimated GFR (MDRD) Amer 57 mL/min >60 [facility] Comment on above: GFR Calc Estimated GFR (MDRD) Non-Af Amer 48 mL/min >60 [facility] Comment on above: Non- GFR Calc Serum or plasma calcium jossie urement (mass/volume)Ordered By: Omid Perez on 04-19-2023 Calcium [Mass/Vol] 8.9 mg/dL 8.5-10.1 [facility] Serum or plasma creatinine m easurement (mass/volume)Ordered By: Omid Perez on 04-19-2023 Creatinine [Mass/Vol] 1.50 mg/dL 0.70-1.30 [facility] Comment on above: The validity of the calculated GFR & GFRAA in patients over 70 years has not been determined. Clinical correlation is essential. Serum or plasma urea nitroge n measurement (mass/volume)Ordered By: Omid Perez on 04-19-2023 Urea nitrogen [Mass/Vol] 28 mg/dL 7-18 [facility] Thin prep Papanicolaou smear with manual screeningOrdered By: Omid Perez on 04-19-2023 Thin prep Papanicolaou smear with manual screening 2 5-15 [facility] Absolute lymphocyte countOrd ered By: Omid Perez on 04-08-2023 Lymphocytes Auto (Unsp spec) [#/Vol] 1.37 10*3/uL 0.83-4.51 [facility] Basophil percentageOrdered B y: Omid Perez on 04-08-2023 Basophils/100 WBC (Bld) 0.3 % 0-1 [facility] Chloride [Moles/Vol] 108 mmol/L 98-107 [facility] Eosinophils/100 WBC (Bld) 1.6 % 0-5 [facility] Glucose [Mass/Vol] 96 mg/dL 74-106 [facility] Neutrophils (Bld) [#/Vol] 6.3 10*3/uL 2.0-7.7 [facility] [facility] Neut[facility]ils/100 WBC (Bld) 71.5 % 47-70 [facility] Potassium [Moles/Vol] 3.6 mmol/L 3.5-5.1 [facility] Sodium [Moles/Vol] 142 mmol/L 136-145 [facility] WBC (Bld) [#/Vol] 8.8 10*3/uL 4.4-11.0 [facility] Blood erythrocytes count (nu mber/volume)Ordered By: Omid Perez on 04-08-2023 RBC (Bld) [#/Vol] 3.95 10*6/uL 4.6-6.2 [facility] Blood hemoglobin measurement (mass/volume)Ordered By: Omid Perez on 04-08-2023 Hemoglobin (Bld) [Mass/Vol] 11.8 g/dL 13.0-16.5 [facility] Blood lymphocytes/100 leukoc ytesOrdered By: Omid Perez on 04-08-2023 Lymphocytes/100 WBC (Bld) 15.5 % 19-41 [facility] Blood monocytes/100 leukocyt esOrdered By: Omid Perez on 04-08-2023 Monocytes/100 WBC (Bld) 9.7 % 0-10 [facility] Blood platelet mean volumeOr dered By: Omid Perez on 04-08-2023 Platelet mean volume (Bld) [Entitic vol] 10.5 fL 6.2-12.0 [facility] Determination of erythrocyte mean corpuscular volume (MCV)Ordered By: Omid Perez on 04-08-2023 MCV (RBC) [Entitic vol] 92.2 fL 80-94 [facility] Hematocrit Auto (Bld) [Volum e fraction]Ordered By: Omid Perez on 04-08-2023 Hematocrit (Bld) [Volume fraction] 36.4 % 40-54 [facility] Laboratory - Chemistry and C hemistry - challengeOrdered By: Omid Perez on 04-08-2023 CO2 [Moles/Vol] 28.0 mmol/L 21.0-32.0 [facility] Urea nitrogen/Creatinine [Mass ratio] 18.0 mg/mg 10-20 [facility] Laboratory - Hematology and Cell countsOrdered By: Omid Perez on 04-08-2023 Erythrocyte distribution width (RBC) [Entitic vol] 51.8 fL 35.1-43.9 [facility] Erythrocyte distribution width (RBC) [Ratio] 15.3 % 11.6-14.6 [facility] Immature granulocytes/100 WBC (Bld) 1.400 % 0.0-0.9 [facility] Comment on above: IG% - Immature Granu locytes (promyelocytes, myelocytes and metamyelocytes) > 1% indicates that a LEFT SHIFT is Present. MCH (RBC) [Entitic mass] 29.9 pg 27.0-32.0 [facility] Nucleated RBC/100 WBC (Bld) [Ratio] 0 % 0-5 [facility] MCHC Auto (RBC) [Mass/Vol]Or dered By: Omid Perez on 04-08-2023 MCHC (RBC) [Mass/Vol] 32.4 g/dL 32-36 [facility] No Panel InformationOrdered By: Omid Perez on 04-08-2023 Estimated Creatinine Clearance Calc 48.78 ml/min [facility] Estimated GFR (MDRD) Amer 81 mL/min >60 [facility] Comment on above: GFR Calc Estimated GFR (MDRD) Non-Af Amer 67 mL/min >60 [facility] Comment on above: Non- GFR Calc Platelets bldOrdered By: Karthikeyan Perez on 04-08-2023 Platelets (Bld) [#/Vol] 107 10*3/uL 150-450 [facility] Serum or plasma calcium jossie urement (mass/volume)Ordered By: Omid Perez on 04-08-2023 Calcium [Mass/Vol] 8.2 mg/dL 8.5-10.1 [facility] Serum or plasma creatinine m easurement (mass/volume)Ordered By: Omid Perez on 04-08-2023 Creatinine [Mass/Vol] 1.11 mg/dL 0.70-1.30 [facility] Comment on above: The validity of the calculated GFR & GFRAA in patients over 70 years has not been determined. Clinical correlation is essential. Serum or plasma urea nitroge n measurement (mass/volume)Ordered By: Omid Perez on 04-08-2023 Urea nitrogen [Mass/Vol] 20 mg/dL 7-18 [facility] Thin prep Papanicolaou smear with manual screeningOrdered By: Omid Perez on 04-08-2023 Thin prep Papanicolaou smear with manual screening 6 5-15 [facility] No Panel InformationOrdered By: Omid Perez on 04-07-2023 Activated Clotting Time 143 sec 74-137 [facility] INR in Blood by Coagulation assayOrdered By: Dieter Christianson on 04-01-2023 INR Coag (Bld) [Relative time] 1.1 {INR} [facility] Laboratory - CoagulationOrde red By: Dieter Christianson on 04-01-2023 aPTT Coag (Bld) [Time] 43.0 s 24.1-36.2 [facility] PT Coag (PPP) [Time] 14.3 s 11.7-14.9 [facility] Basophil percentageOrdered B y: Dieter Christianson on 03-29-2023 Basophil percentage 2.4 mg/dL 2.5-4.9 [facility] Bilirubin [Mass/Vol] 0.60 mg/dL 0.20-1.00 [facility] Comment on above: For patients on eltr ombopag therapy, use of Dimension [place] TBIL is not recommended. Protein [Mass/Vol] 6.8 g/dL 6.4-8.2 [facility] Direct bilirubinOrdered By: Dieter Christianson on 03-29-2023 Bilirubin.direct [Mass/Vol] 0.17 mg/dL 0.00-0.30 [facility] Laboratory - Chemistry and C hemistry - challengeOrdered By: Dieter Christianson on 03-29-2023 ALP [Catalytic activity/Vol] 64 U/L 45-117 [facility] ALT [Catalytic activity/Vol] 22 U/L 16-61 [facility] Globulin (S) [Mass/Vol] 3.4 g/dL 2.2-4.2 [facility] Magnesium [Mass/Vol] 2.3 mg/dL 1.6-2.6 [facility] Serum or plasma albumin jossie urement (mass/volume)Ordered By: Dieter Christianson on 03-29-2023 Albumin [Mass/Vol] 3.4 g/dL 3.2-5.0 [facility] Thin prep Papanicolaou smear with manual screeningOrdered By: Dieter Christianson on 03-29-2023 Thin prep Papanicolaou smear with manual screening 19 U/L 15-37 [facility] Basophil percentageOrdered B y: Omid Perez on 02-23-2023 Chloride [Moles/Vol] 107 mmol/L 98-107 [facility] Glucose [Mass/Vol] 92 mg/dL 74-106 [facility] Potassium [Moles/Vol] 3.6 mmol/L 3.5-5.1 [facility] Sodium [Moles/Vol] 140 mmol/L 136-145 [facility] Laboratory - Chemistry and C hemistry - challengeOrdered By: Omid Perez on 02-23-2023 CO2 [Moles/Vol] 30.0 mmol/L 21.0-32.0 [facility] Urea nitrogen/Creatinine [Mass ratio] 24.8 mg/mg 10-20 [facility] No Panel InformationOrdered By: Omid Perez on 02-23-2023 Estimated GFR (MDRD) Amer 64 mL/min >60 [facility] Comment on above: GFR Calc Estimated GFR (MDRD) Non-Af Amer 53 mL/min >60 [facility] Comment on above: Non- GFR Calc Serum or plasma calcium jossie urement (mass/volume)Ordered By: Omid Perez on 02-23-2023 Calcium [Mass/Vol] 9.2 mg/dL 8.5-10.1 [facility] Serum or plasma creatinine m easurement (mass/volume)Ordered By: Omid Perez on 02-23-2023 Creatinine [Mass/Vol] 1.37 mg/dL 0.70-1.30 [facility] Comment on above: The validity of the calculated GFR & GFRAA in patients over 70 years has not been determined. Clinical correlation is essential. Serum or plasma urea nitroge n measurement (mass/volume)Ordered By: Omid Perez on 02-23-2023 Urea nitrogen [Mass/Vol] 34 mg/dL 7-18 [facility] Thin prep Papanicolaou smear with manual screeningOrdered By: Omid Perez on 02-23-2023 Thin prep Papanicolaou smear with manual screening 3 5-15 [facility] SURGICAL PATHOLOGYOrdered By : Matt Culp on 01-18-2023 Case Report Surgical Pathology R eport Case: [id number] Authorizing Provider: Lisa Rodriguez MD Collected: 01/15/2023 11:33 AM Ordering Location: Ambulatory Surgery Received: 01/15/2023 08:54 PM Pathologist: Matt Culp MD Specimen: COLON BIOPSY, random [facility] Work Phone: FINAL DIAGNOSIS e3jvlMPdBWFxeDPnEIVb NVxhbn VgGEQitKXcF3XejmnuTWqcXK2v IP8bcNpleWCsuRVfHPJsSyCmg9 vuw916pSWew2vyHHCUkrhqnQm9 yYeeU54ow1L6RnhkU98ghPWaHD I8UQBuWZJbsYLvAMFaTAI7MIWa zCGrL4jiQVNeTE0krhqvAKrtUB amBMHpePR7LUEngXFmL5FgCLIj FIysOEHssgt3DcEgHa0saJKprV cyMFxwYXJkXHBsYWluXGZzMjAg CxRsLT1yNNJwhV9wRBGtzM8la7 g9ROvunaWvPLJYk8teAWihgx51 xdPuz6ihvWsxYmxjQBL2 [facility] Work Phone: Gross Description w8nkkTQvLIXcqNLJOUAg MDRcYW 5edYgpvDs6tAxzALRaoqO4fRFa KTdja0hbWQG1j7wsbjJDMvepHZ KkKVzkWSRochvfDaU1YWrxIGNy gthtNDt4EUayEBDyfAH0HZSxaK XkR6HuYNEjKZ6pqtx6ANI7CSnv PPCoJoS6LGMuMlRcZohjIWp8BF ZxboV8Dvo2IKAwLEZddELqz1F2 WOidpstrAMByaXPxE988TPqhj7 VjdGQgDQpccGFyZCANCntcKlxl gKhaf5NdcKQoELaqTLGtGNQxPE cnoupoNTk0ZUOmFOtrmVWfVE4z jVhlOntptToyo0VoeNCuDWvhGD ThWJAoIAhxCMNuEV8HKwIcPZLn RWN6FADxVtG3DPv0QDBORoTaDi AqHbO0XrdyNeSbULx9LEv4YIeH WoOsCOL7RgO9ElXtWRI5MNzgVB BcXHQgMiBcXGYgQXJpYWwgXFxm aFMbEA4loZuixKRzqkVARsEUD2 fDHgVFZJ1YR5wpmLVeHR6VQHCa qGKGQSL3SM9jUSSTKszpgUAbDM MxjFndSAndsE3hSP1AZDx8irWn EHJmKiCkBdQkFOu5KFJliB5wZc 8fpETygJ9dIUYhZF44qQAngArq ZLEeUNVdqzUyFfM7BS2aAPYwGv AcdVknf0MxAZXbZ9WfR6J3gJ7s PVHrXBPoVwP2EJNfFBB2RBLgAi TxeJ3rEF00HQyunEQcjCTvzMD5 UNGnbT2fUd6qnMGvaF8ziC9unS qmQCZvi5UalSOkwi7yCHWhfdWD ClxwYXIgDQpccGFyZFxsdHJwYX QaeYz2OgNfKG9VS2Qph3YgOLzk hBbjPRYht62riGCtPx4uuKZgRK E9UEBrCJNokBPhNWNSaAtylJHn MTy3UWQhPIVoiFasZSG6UX5bGD HiIAYvkRAlNOwkD4khXJRtYBWb iXZnRS7PGHKoixCCCbsOQUE8Rz S3IqPkVeFbZKP9OoaaIB8dcJEz XU4JOJEqsgSbrNBpyTMjBJ7MAZ AgdDKMCNL2HR2xEMc7TBauUWPx S6HhL6UckxJtvUMaFZXkmcXzy0 yaFKD0GABehRDeiITtIzWkBazw PGM3AETaRMhoDV1COLDvVFA8RV mmpP85yHXpVC8XYVWbAPcrQEDy OWIwseY4PLQdrKNzKBD5EU9mdU nusUMdsvkdepY4AL0UbQ== [facility] Work Phone: Performing Lab v8dxwKZkPHDtbXRhMsRl MDAwXG Hhz8yzLBTuxKUfGdCqNsIuVyGi HilfgOSbRWIeBdZar8ndo938lK Zll1lgRLZiKuD8iUBgIXLngVBv G839BFOdAXzjx6lud1PqKNYcwR Nfl6P8EISUgcljtOd0yUfeI94b h5I7LwtzR8quLXIzQHKlL6FpHJ 3mNKKzNou7GLT4SFJ7XWLrMGJj Y1CpNR5xRFPlzEGoXDb0e8vvyM tpFZGcVBK1q6fvCCzgafFaEQ3t fd0xyXe7a1fxlsEpQFQdYLObpE HDFLEhN7HvaGjiBm4udNk4lDaz HxwvBHZ7Sxm5ZE4rga00qrt4wS hvZXYpzvlyWgD1RLvwJBZjbjdc CSh5ZRoxPTKwrZZ5VBTlvIBkH4 MtHLpfOT9gair6KHK7QAtpLURu SvB1HHVatPThTKOfiMdtURbzy7 46XNC1ZmVhUP1oC6Gyh3C6jT1a mUQtKTPvyOHdAfUvJTYqdo6ysO OmTSmid4DjAMA5sqV6hSIerFSv ZJHzSZ01Kjwvx9MvKumjw0ZkP9 0acNK8RDcih0fbWX8iUqO4aoUo PHpcg6bhgI1lTvT1YSaiDK1sNU 2zKDHkjC7vioukPINyLpEnfjjr XWQajBlfrmMsPd2ggSlnFFK5UC hdK1qlkX3ySxD0GBqhE2odqX8t LZn9PYoutMR6CHQxjJ3dEZ1hkd kem5syOIurLShvUYVkkrD6tvSx OQMwvFOqY6EnoO9sURCnXW9idj mbx4oyDJY4XGbsNDJeDBS8MaZh AASgu7Nrkvl2OuEho5ZdfGAyRT ezF24hc980KAWpmnKzX1uzhWXh kuaicHAvdjbsTLzxgtA2KNPsNZ BsYWluXGYxXGZzMjJcbGFuZzEw MzNcaGljaFxmMVxkYmNoXGYxXG cqU0uyFrQiJeQhSfWAmKTtkm3d pGebQOmabSXbgJVeqUX6vK0lBX RnkcFlzf7bODGigDYCxFP7QFfx vyNrK0szlaagSXN6MDGoQNM2G3 xpZCBBdmUsIENsZXZlbGFuZCBP ZPC7WRS1EUTpIRECXNKtMSN4AE P0ZRYqVBGriAEwENRvknwpTUDa XHBsYWluXGYwXGZzMjRccGxhaW 0oXnTxCyAkVmigJB7iRZAqQ7us nIKeRGOrKNXiF1ppSxGgaT3kwA xmMVxjZjJcZnMyMlxsdHJjaCBM JPPjzjL3d7P8ZGsvsEGjfqfzVB edynBiGVlvlbdeGFOkOPjjW5yz TjXaDZDpzGdgIAwgu2RnMUIqYP WdPnYhZRtpJTZ5e5S1JMxtrBRd oyMEVgYVKW2yfOUoyhicIT5SCz xwYXJ9 [facility] Work Phone: [facility] Work Phone: Flexible sigmoidoscopy study on 01-15-2023 [facility] Patient Name: Leana Camejo Procedure Date: 01/15/2023 11:19 AM Date of : 1940 Admit Type: Outpatient Age: 83 Room: [place] [address] Gender: Male Note Status: Finalized Attending MD: [...] by the physician, the nurse and the master sheet clerk in the pre-procedure area in the endoscopy [...] entire examined (more content not included)... PROVATION [facility] Radiology Study observation (narrative) [facility] CULTURE ANAEROBEon 9 CULTURE ANAEROBE CULTURE ANAEROBE --> Status: F No growth of anaerobes at 5 days. Normal [facility] Comment on above: Performed By: #### C XFLD, C/CAITLYN #### [facility] [address], [place] Basic Metabolic Panelon 10-3 0-2019 Anion gap [Moles/Vol] 7 Normal [facility] Comment on above: Performed By: #### B MP3 #### [facility] [address], [place] Calcium [Mass/Vol] 9.0 mg/dL Normal 8.4-10.4 [facility] Comment on above: Performed By: #### B MP3 #### [facility] [address], [place] CO2 [Moles/Vol] 25 mmol/L Normal 22-30 [facility] Comment on above: Performed By: #### B MP3 #### [facility] [address], [place] Glucose [Mass/Vol] 107 mg/dL High 70-100 [facility] Comment on above: Performed By: #### B MP3 #### [facility] [address], [place] Urea nitrogen [Mass/Vol] 25 mg/dL High 7-20 [facility] Comment on above: Performed By: #### B MP3 #### [facility] [address] [place] [address] Creatinine [Mass/Vol] 1.17 mg/dL Normal 0.52-1.25 [facility] Comment on above: Performed By: #### B MP3 #### [facility] [address], [place] GFR/1.73 sq M predicted among blacks MDRD (S/P/Bld) [Vol rate/Area] mL/min/{1.73_m2} Normal >60 [facility] Comment on above: Performed By: #### B MP3 #### [facility] [address], [place] GFR/1.73 sq M predicted among non-blacks MDRD (S/P/Bld) [Vol rate/Area] mL/min/{1.73_m2} Normal >60 [facility] Comment on above: Result Comment: Sour ce- MDRD equation with creatinine calibration to IDMS(NKDEP) eGFR not recommended for drug dose adjustment Performed By: #### B MP3 #### [facility] [address], [place] Potassium [Moles/Vol] 3.8 mmol/L Normal 3.5-5.1 [facility] Comment on above: Performed By: #### B MP3 #### [facility] [address], [place] Sodium [Moles/Vol] 138 mmol/L Normal 135-145 [facility] Comment on above: Performed By: #### B MP3 #### [facility] [address], [place] Chloride [Moles/Vol] 106 mmol/L Normal 98-107 [facility] Comment on above: Performed By: #### B MP3 #### [facility] [address], [place] Anion gap [Moles/Vol] 7 mmol/L [place], [place] Calcium [Mass/Vol] 9.0 mg/dL 8.4 - 10. 4 mg/dL [place], [place] Chloride [Moles/Vol] 106 mmol/L 98 - 10 7 mmol/L [place], [place] CO2 [Moles/Vol] 25 mmol/L 22 - 30 mmol/L [place] Creatinine [Mass/Vol] 1.17 mg/dL 0.52 - 1.25 mg/dL [place], [place] EGFR IF NonAfrican [place] >60.0 >60 mL/min [place], [place] Comment on above: Source- MDRD equatio n with creatinine calibration to IDMS(NKDEP) eGFR not recommended for drug dose adjustment GFR/1.73 sq M predicted among blacks MDRD (S/P/Bld) [Vol rate/Area] mL/min/{1.73_m2} >60 mL/min [place], [place] Glucose [Mass/Vol] 107 mg/dL High 70 - 100 mg/dL [place], [place] Interpretation and review of laboratory results Abnormal [place], [place] Potassium [Moles/Vol] 3.8 mmol/L 3.5 - 5.1 mmol/L [place] Sodium [Moles/Vol] 138 mmol/L 135 - 145 mmol/L [place], [place] Urea nitrogen [Mass/Vol] 25 mg/dL High 7 - 20 mg/dL [place], [place] Test Performed by [address] [address] [place], [place] CT Aspiration Fine Needleon 07-19-2019 CT Aspiration Fine Needle Patient Name: LEANA CAMEJO CT Exam Date/Time 07/19/2019 09:16:[address] Aspiration Ordering Physician MD PEYTON, YARIEL Durán Accession Number [id number] CPT4 Codes 55707 (), 16243 () Reason For Exam ileopsoas abscess Report [...] WILLIAM Transcribed Date and Time: 07/19/2019 9:[address] [facility] [address] GUIDED NEEDLE ASPIRATION OR INJECTIONon 07-19-2019 Patient Name: LEANA CAMEJO ---CT--- Exam Date/Time 07/19/2019 09:16:[address] Aspiration Ordering Physician MD BLAS TYLER M Accession Number [id number] CPT4 Codes 90094 (), 69128 () Reason For Exam ileopsoas abscess Report [...] WILLIAM Transcribed Date and Time: 07/19/2019 9:25 [facility], [place], [place] Incoming Radiology Results From [facility] - 07/19/2019 9:31 AM EDT Patient Name: LEANA CAMEJO ---CT--- Exam Date/Time 07/19/2019 09:16:[address] Aspiration Ordering Physician MD PEYTON, YARIEL Durán Accession Number [id number] CPT4 Codes 93022 (), 69250 () Reason For Exam ileopsoas abscess Report [...] WILLIAM Transcribed Date and Time: 07/19/2019 9:25 [facility], [place] CULTURE AND STAIN - FLUIDon 07-19-2019 CULTURE AND STAIN - FLUID CULTURE & STAIN - FLUID --> Status: F No growth at 3 days. STAIN GRAM --> Status: F Many polymorphonuclear cells/lpf. No organisms seen. No organisms seen. Normal [facility] Comment on above: Performed By: #### C XFLD, C/CAITLYN #### [facility] [address] [place] [address] .GFRon 06-16-2019 GFR 69 ml/min/1.73sqm Normal [facility] ([place]) Comment on above: Result Comment: GFR Population [...] Performed By: #### C RE, GFR #### [facility] [address] [place] [id number] GFR Non- 57 ml/min/1.73sqm Normal [facility] ([place]) Comment on above: Result Comment: GFR Population [...] Performed By: #### C RE, GFR #### [place] [id number] CREon 06-16-2019 Creatinine [Mass/Vol] 1.23 mg/dL Normal 0.70-1.30 [facility] ([place] Comment on above: Performed By: #### C RE, GFR #### [place] [address] CNOVon 01-14-2018 CNOV Office Visit (AGCARDWST) LEANA CAMEJO ([id number]) 1940 [facility] Time Provider Department01/14/18 10:30 AM MOODY [...] - N/ABeta adrienne for ASHD with prior PA or prior LVEFANDlt;40 (NQ 0070) - N/ABeta [...] tab Take 1 tablet by mouth once daily.vq-5-sjo-epa-D3-B12- FA-B-6-phy (ANIMI-3 WITH VITAMIN D) 500-1,647-284az-oddp-mcg cap Take 1,000 Units by mouth twice daily.Fish,Saf,Flx,Brg Oils-O3,6,9#2 [phone] mg cap Take 6 capsules by mouthonce daily.Flaxseed Oil 1,000 mg ORAL Cap Take by mouth.gabapentin (NEURONTIN) 300 mg capsule Take 1 capsule by mouth twice daily.Ipratropium [place] (ATROVENT) 0.03 % nasal spray Use 2 [...] function is stableElectronically Signed:Leigha Duckworth 2017 10:43 [facility]: Diogenes Preciado MD 01/14/2018 10:44 AM SignedDecrease amlodipine to 5 mg daily.Start carvedilol 6.25 mg twice a dayCall next week with list of your vital signsIf increased HR continues, we will do a heart monitorReferring Provider: SELF [[id number]]Allergies As of Date: 01/14/2018 Noted Allergy ReactionCLONIDINE 07/21/2005CRESTOR (ROSUVASTATIN CALCIUM) 07/21/2005LIPITOR (ATORVASTATIN CALCIUM) 07/21/2005LISINOPRIL 02/10/2017 2 - RashSTATINS (SQULSVN-MPH-VPY REDUCTAS*07/15/2006Date Reviewed: 09/09/2017Reviewed by: Benita Garay - [...] Take 1 tablet by mouth once d* JFTDH-6-UXH-TYD-F9-M71-FA- B6-* Take 1,000 Units by mouth twi* [...] encounter GABAPENTIN 300 MG CAPSULE >> Jorge Arvizu RN 01/14/2018 10:31 AM >> JORGE ARVIZU [...] MOODY MONTES MD on 01/14/18 [facility] PROGRESSon 01-14-2018 PROGRESS HNO ID: [id number] thor: Moody Yuan: (none)Author Type: PhysicianType: Progress NotesFiled: 01/14/2018 5:45 PMNote Text:PERTINENT CARDIAC HISTORYHTNHL - statin intolerantCHF - diastolicVPDsCRFRSV infectionAllergy to lisinopril - rashADHERENCE TO GUIDELINESACE-I or ARB for HF with prior LVEF<40 (NQF 0081) - N/AASA or Plavix for ASHD (NQF 0067) - N/ABeta adrienne for ASHD with prior PA or prior LVEF<40 (NQF 0070) - N/ABeta [...] tab Take 1 tablet by mouth once daily.mi-6-msw-epa-D3-B12- FA-B-6-phy (ANIMI-3 WITH VITAMIN D) 500-1,634-032lr-xnpx-mcg cap Take 1,000 Units by mouth twice daily.Fish,Saf,Flx,Brg Oils-O3,6,9#2 [phone] mg cap Take 6 capsules bymouth once daily.Flaxseed Oil 1,000 mg ORAL Cap Take by mouth.gabapentin (NEURONTIN) 300 mg capsule Take 1 capsule by mouth twice daily.Ipratropium [place] (ATROVENT) 0.03 % nasal spray Use 2 [...] function is stableElectronically Signed:Leigha Duckworth 2017 10:43 [facility]: aGvin Hope [facility] (AGCARDWST) LEANA CAMEJO ([id number]) 1940 MDate Time Provider Ufdjteorka97/21/17 8:30 AM MOODY MONTES AGCARDWST During your [...] - N/ABeta adrienne for ASHD with prior PA or prior LVEFANDlt;40 (NQF 0070) - N/ABeta [...] plant based diet - lifestyle recommendation formCLINICAL IMPRESSION/PLAN:Beverlyshilpa Camejo is doing well. He has well [...] with treatment plan.This note was generated using [employer] voice recognition system, and there may besome [...] tab Take 1 tablet by mouth once daily.xl-2-erm-epa-D3-B12- FA-B-6-phy (ANIMI-3 WITH VITAMIN D) 500-1,393-807mn-kche-mcg cap Take 1,000 Units by mouth twice daily.Fish,Saf,Flx,Brg Oils-O3,6,9#2 [phone] mg cap Take 6 capsules by mouthonce daily.Flaxseed Oil 1,000 mg ORAL Cap Take by mouth.Ipratropium [place] (ATROVENT) 0.03 % nasal spray Use 2 [...] UPPER EYELID 2012- [facility]/18/01 anemia- [facility]ONOSCOP [facility]/ [facility] 05/13/10 repeat 10 yrs- EGD W/O [...] fraction was 60%.Electronically Signed:ARIADNA Duckworthecekael 2016 8:54 [facility]:Diogenes Preciado MD 09/09/2017 8:54 AM SignedLIFESTYLE [...] programs in your area.Referring Provider: GAVIN HOPE [[id number]]Allergies As of Date: 09/09/2017 Noted Allergy ReactionCLONIDINE 07/21/2005CRESTOR (ROSUVASTATIN CALCIUM) 07/21/2005LIPITOR (ATORVASTATIN CALCIUM) 07/21/2005LISINOPRIL 02/10/2017 2 - RashSTATINS (IFXLMCF-RHR-TNL REDUCTAS*07/15/2006Date Reviewed: 09/09/2017Reviewed by: Benita Garay - [...] Take 1 tablet by mouth once d* GFRGM-0-JEO-OGR-V3-G57-FA- B6-* Take 1,000 Units by mouth twi* [...] 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 EAT A WHOLE FOOD, PLANT BASED [...] your area.Follow-up and Disposition History RecordedEncounter Number: [id number] Status:Closed by MOODY MONTES MD on 09/10/17 [facility] PROGRESSon 09-09-2017 PROGRESS HNO ID: [id number] thor: Moody Yuan: (none)Author Type: PhysicianType: Progress NotesFiled: 09/10/2017 6:07 PMNote Text:PERTINENT CARDIAC HISTORYHTNHL - statin intolerantCHF - diastolicVPDsCRFRSV infectionAllergy to lisinopril - rashADHERENCE TO GUIDELINESACE-I or ARB for HF with prior LVEF<40 (NQF 0081) - N/AASA or Plavix for ASHD (NQF 0067) - N/ABeta adrienne for ASHD with prior PA or prior LVEF<40 (NQF 0070) - N/ABeta [...] with treatment plan.This note was generated using [employer] voice recognition system, and theremay be some [...] TAKE TWO TABLETS BY MOUTH ONCE DAILY [facility] (GRAPE SEED ORAL) Take by mouth.BOSWELLIA ROLAND EXTRACT (BOSWELLIA ROLAND XT, BULK,) 100 % powdCoenzyme Q10 (CO Q-10) 200 mg cap Take 1 capsule by mouth once daily.vitamin b complex (B COMPLETE) tab Take 1 tablet by mouth once daily.es-3-wso-epa-D3-B12- FA-B-6-phy (ANIMI-3 WITH VITAMIN D) 500-1,154-537vi-aqxg-mcg cap Take 1,000 Units by mouth twice daily.Fish,Saf,Flx,Brg Oils-O3,6,9#2 [id number] mg cap Take 6 capsules bymouth once daily.Flaxseed Oil 1,000 mg ORAL Cap Take by mouth.Ipratropium [place] (ATROVENT) 0.03 % nasal spray Use 2 [...] UPPER EYELID 2012- [facility]01 anemia- COLON[facility]COP W/ [facility] 05/13/10 repeat 10 yrs- EGD W/O [...] fraction was 60%.Electronically Signed:Rach Duckworth 2016 8:54 [facility]:Gavin Hope MD [facility] OBSOLETEon 07-22-2017 OBSOLETE Refill (AGCARDWST) LE[facility] CAMEJO ([id number]) [address] [facility] Fwkwgrmgki24/2/17 MOODY MONTES During your visit today, we [...] (ATORVASTATIN CALCIUM) 07/21/2005LISINOPRIL 02/10/2017 2 - RashSTATINS (JAIMNLC-DGD-LSK REDUCTAS*07/15/2006Date Reviewed: 06/03/2017Reviewed by: Benita Garay - Fully AssessedReason for Visit: Refill Request [94]Visit Diagnosis:Chronic diastolic CHF (congestive heart failure) ([facility]) [I50.32]Order(s):furosemid e (LASIX) 40 mg tabletTake [...] Take 1 tablet by mouth once d* [id number]-1-[id number]-WLE-A2-Q80-FA- B6-* Take 1,000 Units by mouth twi* [...] Status:Closed by FRANK ARELLANO on 07/22/17 Normal [facility] Vital Signs Date Time Vital Sign Value Performing Clinician Facility 05-18-2025 09:41-0400 Body mass index (BMI) [Ratio] 21.08 kg/m2 Darya Borden APRN.CNP Work Phone: [facility] 05-18-2025 09:41-0400 Body weight 62.9 kg Darya Saira ADZ WORKER.[employer] Work Phone: [facility] 05-18-2025 09:41-0400 Diastolic blood pressure 70 mm[Hg] Darya Borden ADZ WORKER.[employer] [facility] [facility] 05-18-2025 09:41-0400 Heart rate 56 /min Darya Borden ADZ WORKER.SHUTTLECOCK FEATHER TRIMMER Work Phone: [facility] 05-18-2025 09:41-0400 Respiratory rate 14 /min Darya Borden ADZ WORKER.SHUTTLECOCK FEATHER TRIMMER Work Phone: [facility] 05-18-2025 09:41-0400 SaO2% (BldA) [Mass fraction] 94 % Darya Borden ADZ WORKER.SHUTTLECOCK FEATHER TRIMMER Work Phone: [facility] 05-18-2025 09:41-0400 Systolic blood pressure 112 mm[Hg] Darya Borden ADZ WORKER.SHUTTLECOCK FEATHER TRIMMER Work Phone: [facility] 05-10-2025 08:07-0400 Body height 172.[address] Dallas Reed MD Work Phone: [facility] 05-10-2025 08:07-0400 Body mass index (BMI) [Ratio] 21.6 kg/m2 Dr. Dallas Reed MD Work Phone: [facility] 05-10-2025 08:07-0400 Body weight 64.[address] Dallas Reed MD Work Phone: [facility] 05-10-2025 08:07-0400 Diastolic blood pressure 55 mm[Hg] Dr. Dallas Reed MD Work Phone: [facility] 05-10-2025 08:07-0400 Heart rate 66 /min Dr. Dallas Reed MD Work Phone: [facility] 05-10-2025 08:07-0400 Respiratory rate 18 /min Dr. Dallas Reed MD Work Phone: [facility] 05-10-2025 08:07-0400 SaO2% (BldA) [Mass fraction] 98 % Dr. Dallas Reed MD Work Phone: 2(641)786-880944 [place] [address] 05-10-2025 08:07-0400 Systolic blood pressure 95 mm[Hg] Dr. Dallas Reed MD Work Phone: 8(442)624-929109 [place] [address] 04-18-2025 16:27-0400 Body temperature 98.2 [degF] Dr. Dallas Reed MD Work Phone: 3(768)347-056709 [place] [address] 04-18-2025 16:27-0400 Body weight 65.[address] Dallas Reed MD Work Phone: 4(545)231-890009 [place] [address] 04-18-2025 16:27-0400 Diastolic blood pressure 79 mm[Hg] Dr. Dallas Reed MD Work Phone: 5(444)311-266509 [place] [address] 04-18-2025 16:27-0400 Heart rate 74 /min Dr. Dallas Reed MD Work Phone: 9(787)432-014309 [place] [address] 04-18-2025 16:27-0400 Respiratory rate 16 /min Dr. Dallas Reed MD Work Phone: 2(145)181-470209 [place] [address] 04-18-2025 16:27-0400 SaO2% (BldA) [Mass fraction] 97 % Dr. Dallas Reed MD Work Phone: 0(421)997-369309 [place] [address] 04-18-2025 16:27-0400 Systolic blood pressure 158 mm[Hg] Dr. Dallas Reed MD Work Phone: 4(802)804-252809 [place] [address] 03-16-2025 19:15-0400 Diastolic blood pressure 69 mm[Hg] Ana Bobo MD Work Phone: [facility] Comment on above: per patient SBP in 120s is normal for [facility] 03-16-2025 19:15-0400 Heart rate 71 /min Ana Bobo MD Work Phone: [facility] 03-16-2025 19:15-0400 Respiratory rate 16 /min Ana Bobo MD Work Phone: [facility] 03-16-2025 19:15-0400 SaO2% (BldA) [Mass fraction] 94 % Ana Bobo MD Work Phone: [facility] 03-16-2025 19:15-0400 Systolic blood pressure 124 mm[Hg] Ana Bobo MD Work Phone: [facility] Comment on above: per patient SBP in 120s is normal for [facility] 03-16-2025 17:07-0400 Body temperature 97.3 [degF] Ana Bobo MD Work Phone: [facility] 03-16-2025 10:04-0400 Body height 172.7 cm Ana Bobo MD Work Phone: [facility] 03-16-2025 10:04-0400 Body mass index (BMI) [Ratio] 22.66 kg/m2 Ana Bobo MD Work Phone: [facility] 03-16-2025 10:04-0400 Body weight 67.59 kg Ana Bobo MD Work Phone: [facility] 03-12-2025 08:39-0400 Body mass index (BMI) [Ratio] 21.69 kg/m2 Darya Borden ADZ WORKER.SHUTTLECOCK FEATHER TRIMMER Work Phone: [facility] 03-12-2025 08:39-0400 Body weight 64.7 kg Darya Borden ADZ WORKER.SHUTTLECOCK FEATHER TRIMMER Work Phone: [facility] 03-12-2025 08:39-0400 Diastolic blood pressure 68 mm[Hg] Darya Borden ADZ WORKER.SHUTTLECOCK FEATHER TRIMMER Work Phone: [facility] 03-12-2025 08:39-0400 Heart rate 70 /min Darya Borden ADZ WORKER.SHUTTLECOCK FEATHER TRIMMER Work Phone: [facility] 03-12-2025 08:39-0400 Respiratory rate 14 /min Darya Borden ADZ WORKER.SHUTTLECOCK FEATHER TRIMMER Work Phone: [facility] 03-12-2025 08:39-0400 SaO2% (BldA) [Mass fraction] 98 % Darya Borden ADZ WORKER.SHUTTLECOCK FEATHER TRIMMER Work Phone: [facility] 03-12-2025 08:39-0400 Systolic blood pressure 112 mm[Hg] Darya Borden APRN.SHUTTLECOCK FEATHER TRIMMER Work Phone: [facility] 02-27-2025 14:48-0400 Body temperature 97.5 [degF] Dr. Dallas Reed MD Work Phone: 4(532)384-470844 [place] [address] 02-27-2025 14:48-0400 Body weight 64.[address] Dallas Reed MD Work Phone: 1(709)427-926109 [place] [address] 02-27-2025 14:48-0400 Diastolic blood pressure 72 mm[Hg] Dr. Dallas Reed MD Work Phone: 1(752)609-078344 [place] [address] 02-27-2025 14:48-0400 Heart rate 60 /min Dr. Dallas Reed MD Work Phone: 2(732)364-145944 [place] [address] 02-27-2025 14:48-0400 Respiratory rate 16 /min Dr. Dallas Reed MD Work Phone: 2(795)642-687944 [place] [address] 02-27-2025 14:48-0400 SaO2% (BldA) [Mass fraction] 100 % Dr. Dallas Reed MD Work Phone: 1(399)877-304044 [place] [address] 02-27-2025 14:48-0400 Systolic blood pressure 123 mm[Hg] Dr. Dallas Reed MD Work Phone: 0(347)511-927344 [place] [address] 02-14-2025 20:53-0400 Body temperature 97.7 [degF] Dr. Dallas Reed MD Work Phone: 3(790)182-648944 [place] [address] 02-14-2025 20:53-0400 Diastolic blood pressure 76 mm[Hg] Dr. Dallas Reed MD Work Phone: 3(024)909-300144 [place] [address] 02-14-2025 20:53-0400 Heart rate 73 /min Dr. Dallas Reed MD Work Phone: 1(581)293-598544 [place] [address] 02-14-2025 20:53-0400 Respiratory rate 17 /min Dr. Dallas Reed MD Work Phone: 6(562)824-887109 [place] [address] 02-14-2025 20:53-0400 SaO2% (BldA) [Mass fraction] 94 % Dr. Dallas Reed MD Work Phone: 5(463)657-384609 [place] [address] 02-14-2025 20:53-0400 Systolic blood pressure 143 mm[Hg] Dr. Dallas Reed MD Work Phone: 4(506)287-254709 [place] [address] 02-14-2025 09:53-0400 Body height 172.[address] Dallas Reed MD Work Phone: 8(914)800-570709 [place] [address] 02-14-2025 09:53-0400 Body weight 67.[address] Dallas Reed MD Work Phone: 7(561)103-757209 [place] [address] 02-13-2025 07:14-0400 Body mass index (BMI) [Ratio] 22.5 kg/m2 Dr. Dallas Reed MD Work Phone: 1(624)837-015709 [place] [address] 01-12-2025 13:36-0400 Body temperature 97.4 [degF] Dr. Dallas Reed MD Work Phone: 4(870)232-481709 [place] [address] 01-12-2025 13:36-0400 Diastolic blood pressure 78 mm[Hg] Dr. Dallas Reed MD Work Phone: 1(379)786-019909 [place] [address] 01-12-2025 13:36-0400 Heart rate 61 /min Dr. Dallas Reed MD Work Phone: 2(015)859-032509 [place] [address] 01-12-2025 13:36-0400 Respiratory rate 16 /min Dr. Dallas Reed MD Work Phone: 8(218)246-192109 [place] [address] 01-12-2025 13:36-0400 SaO2% (BldA) [Mass fraction] 96 % Dr. Dallas Reed MD Work Phone: 3(399)811-539209 [place] [address] 01-12-2025 13:36-0400 Systolic blood pressure 142 mm[Hg] Dr. Dallas Reed MD Work Phone: 9(543)002-877844 [place] [address] 01-12-2025 10:30-0400 Body height 172.[address] Dallas Reed MD Work Phone: 5(274)815-917709 [place] [address] 01-12-2025 10:30-0400 Body mass index (BMI) [Ratio] 22.4 kg/m2 Dr. Dallas Reed MD Work Phone: 3(733)086-236209 [place] [address] 01-12-2025 10:30-0400 Body weight 67.[address] Dallas Reed MD Work Phone: 4(115)233-650109 [place] [address] 12-25-2024 15:58-0400 Body temperature 98 [degF] Dr. Dallas Reed MD Work Phone: 1(257)035-207009 [place] [address] 12-25-2024 15:58-0400 Body weight 67.[address] Dallas Reed MD Work Phone: 3(947)279-772409 [place] [address] 12-25-2024 15:58-0400 Diastolic blood pressure 83 mm[Hg] Dr. Dallas Reed MD Work Phone: 9(099)513-288409 [place] [address] 12-25-2024 15:58-0400 Heart rate 68 /min Dr. Dallas Reed MD Work Phone: 5(900)787-398809 [place] [address] 12-25-2024 15:58-0400 Respiratory rate 16 /min Dr. Dallas Reed MD Work Phone: 4(167)280-835009 [place] [address] 12-25-2024 15:58-0400 SaO2% (BldA) [Mass fraction] 97 % Dr. Dallas Reed MD Work Phone: 1(250)794-574844 [place] [address] 12-25-2024 15:58-0400 Systolic blood pressure 160 mm[Hg] Dr. Dallas Reed MD Work Phone: 4(313)311-978109 [place] [address] 12-19-2024 09:00-0400 Diastolic blood pressure 65 mm[Hg] Ramon Lee PT Work Phone: [facility] Comment on above: Before [employer] 12-19-2024 09:00-0400 Heart rate 67 /min Ramon Yvonne PT Work Phone: [facility] Comment on above: Before [employer]. 12-19-2024 09:00-0400 Systolic blood pressure 138 mm[Hg] Ramon Yvonne PT Work Phone: [facility] Comment on above: Before [employer] 12-15-2024 09:00-0400 Diastolic blood pressure 67 mm[Hg] Ramon Yvonne PT Work Phone: [facility] Comment on above: Before [employer] 12-15-2024 09:00-0400 Heart rate 71 /min Ramon Yvonne PT Work Phone: [facility] Comment on above: Before [employer] 12-15-2024 09:00-0400 Systolic blood pressure 124 mm[Hg] Ramon Yvonne PT Work Phone: [facility] Comment on above: Before [employer] 12-12-2024 09:00-0400 Diastolic blood pressure 85 mm[Hg] Ramon Yvonne PT Work Phone: [facility] Comment on above: BP before [employer] 12-12-2024 09:00-0400 Heart rate 73 /min Ramon Yvonne PT Work Phone: [facility] 12-12-2024 09:00-0400 Systolic blood pressure 150 mm[Hg] Ramon Yvonne PT Work Phone: [facility] Comment on above: BP before [employer] 12-08-2024 11:25-0400 Body height 172.7 cm Dallas Reed MD Work Phone: [facility] 12-08-2024 11:25-0400 Body mass index (BMI) [Ratio] 22.46 kg/m2 Dallas Reed MD Work Phone: [facility] 12-08-2024 11:25-0400 Body temperature 97.9 [degF] Dallas Reed MD Work Phone: [facility] 12-08-2024 11:25-0400 Body weight 67 kg Dallas Reed MD Work Phone: [facility] 12-08-2024 11:25-0400 Diastolic blood pressure 60 mm[Hg] Dallas Reed MD Work Phone: [facility] 12-08-2024 11:25-0400 Heart rate 71 /min Dallas Reed MD Work Phone: [facility] 12-08-2024 11:25-0400 Respiratory rate 12 /min Dallas Reed MD Work Phone: [facility] 12-08-2024 11:25-0400 SaO2% (BldA) [Mass fraction] 97 % Dallas Reed MD Work Phone: [facility] 12-08-2024 11:25-0400 Systolic blood pressure 110 mm[Hg] Ramon Ricerell PT Work Phone: [facility] Comment on above: Prior to [employer] 12-08-2024 09:00-0400 Diastolic blood pressure 62 mm[Hg] Ramon Yvonne PT Work Phone: [facility] Comment on above: Prior to [employer] 12-08-2024 09:00-0400 Heart rate 66 /min Ramon Yvonne PT Work Phone: [facility] Comment on above: Prior to [employer] 12-06-2024 09:00-0400 Diastolic blood pressure 77 mm[Hg] Ramon Yvonne PT Work Phone: [facility] Comment on above: Prior to [employer] 12-06-2024 09:00-0400 Heart rate 60 /min Ramon Yvonne PT Work Phone: [facility] 12-06-2024 09:00-0400 Systolic blood pressure 148 mm[Hg] Ramon Yvonne PT Work Phone: [facility] Comment on above: Prior to [employer] 11-28-2024 20:00-0400 Diastolic blood pressure 79 mm[Hg] Dr. Dallas Reed MD Work Phone: [facility] 11-28-2024 20:00-0400 Heart rate 76 /min Dr. Dallas Reed MD Work Phone: [facility] 11-28-2024 20:00-0400 Respiratory rate 18 /min Dr. Dallas Reed MD Work Phone: [facility] 11-28-2024 20:00-0400 SaO2% (BldA) [Mass fraction] 93 % Dr. Dallas Reed MD Work Phone: [facility] 11-28-2024 20:00-0400 Systolic blood pressure 143 mm[Hg] Dr. Dallas Reed MD Work Phone: 6(545)713-597309 [place] [address] 11-28-2024 19:31-0400 Body temperature 98.3 [degF] Dr. Dallas Reed MD Work Phone: 9(621)656-394844 [place] [address] 11-28-2024 17:53-0400 Body height 172.[address] Dallas Reed MD Work Phone: 0(109)511-801544 [place] [address] 11-28-2024 17:53-0400 Body mass index (BMI) [Ratio] 23 kg/m2 Dr. Dallas Reed MD Work Phone: 5(678)145-663444 [place] [address] 11-28-2024 17:53-0400 Body weight 68.[address] Dallas Reed MD Work Phone: [facility] 11-27-2024 10:51-0400 Body mass index (BMI) [Ratio] 22.59 kg/m2 Daray Borden ADZ WORKER.SHUTTLECOCK FEATHER TRIMMER Work Phone: [facility] 11-27-2024 10:51-0400 Body temperature 97.7 [degF] Darya Borden ADZ WORKER.SHUTTLECOCK FEATHER TRIMMER Work Phone: [facility] 11-27-2024 10:51-0400 Body weight 67.6 kg Darya Borden ADZ WORKER.SHUTTLECOCK FEATHER TRIMMER Work Phone: [facility] 11-27-2024 10:51-0400 Diastolic blood pressure 70 mm[Hg] Darya Borden ADZ WORKER.SHUTTLECOCK FEATHER TRIMMER Work Phone: [facility] 11-27-2024 10:51-0400 Heart rate 70 /min Darya Saira ADZ WORKER.SHUTTLECOCK FEATHER TRIMMER Work Phone: [facility] 11-27-2024 10:51-0400 Respiratory rate 14 /min Darya Saira ADZ WORKER.SHUTTLECOCK FEATHER TRIMMER Work Phone: [facility] 11-27-2024 10:51-0400 SaO2% (BldA) [Mass fraction] 98 % Darya Saira ADZ WORKER.SHUTTLECOCK FEATHER TRIMMER Work Phone: [facility] 11-27-2024 10:51-0400 Systolic blood pressure 122 mm[Hg] Darya Saira ADZ WORKER.SHUTTLECOCK FEATHER TRIMMER Work Phone: [facility] 11-24-2024 07:00-0500 Diastolic blood pressure 74 mm[Hg] Ramon Lee PT Work Phone: [facility] 11-24-2024 07:00-0500 Heart rate 90 /min Ramon Lee PT Work Phone: [facility] 11-24-2024 07:00-0500 Systolic blood pressure 144 mm[Hg] Ramon Lee PT Work Phone: [facility] 11-09-2024 14:09-0500 Diastolic blood pressure 63 mm[Hg] Dallas Reed MD Work Phone: [facility] 11-09-2024 14:09-0500 Heart rate 66 /min Dallas Reed MD Work Phone: [facility] 11-09-2024 14:09-0500 Systolic blood pressure 120 mm[Hg] Dallas Reed MD Work Phone: [facility] 11-09-2024 14:00-0500 Body mass index (BMI) [Ratio] 23.02 kg/m2 Dallas Reed MD Work Phone: [facility] 11-09-2024 14:00-0500 Body temperature 98.71 [degF] Dallas Reed MD Work Phone: [facility] 11-09-2024 14:00-0500 Body weight 68.9 kg Dallas Reed MD Work Phone: [facility] 11-07-2024 11:00-0500 Body mass index (BMI) [Ratio] 23.05 kg/m2 Elbert Hawk APRN.SHUTTLECOCK FEATHER TRIMMER Work Phone: [facility] 11-07-2024 11:00-0500 Body temperature 97.81 [degF] Elbert Hawk ADZ WORKER.SHUTTLECOCK FEATHER TRIMMER Work Phone: [facility] 11-07-2024 11:00-0500 Body weight 69 kg Elbert Hawk APRN.SHUTTLECOCK FEATHER TRIMMER Work Phone: [facility] 11-07-2024 11:00-0500 Diastolic blood pressure 81 mm[Hg] Elbert Hawk APRN.SHUTTLECOCK FEATHER TRIMMER Work Phone: [facility] 11-07-2024 11:00-0500 Heart rate 57 /min Elbert Hawk APRN.SHUTTLECOCK FEATHER TRIMMER Work Phone: [facility] 11-07-2024 11:00-0500 Respiratory rate 18 /min Elbert Hawk APRN.SHUTTLECOCK FEATHER TRIMMER Work Phone: [facility] 11-07-2024 11:00-0500 SaO2% (BldA) [Mass fraction] 100 % Elbert Hawk APRN.SHUTTLECOCK FEATHER TRIMMER Work Phone: [facility] 11-07-2024 11:00-0500 Systolic blood pressure 150 mm[Hg] Elbert Hawk APRN.SHUTTLECOCK FEATHER TRIMMER Work Phone: [facility] 09-07-2024 09:53-0500 Body height 173 cm Darya Borden APRN.SHUTTLECOCK FEATHER TRIMMER Work Phone: [facility] 09-07-2024 09:53-0500 Body mass index (BMI) [Ratio] 23.19 kg/m2 Darya Borden APRN.SHUTTLECOCK FEATHER TRIMMER Work Phone: [facility] 09-07-2024 09:53-0500 Body weight 69.4 kg Darya Saira ADZ WORKER.SHUTTLECOCK FEATHER TRIMMER Work Phone: [facility] 09-07-2024 09:53-0500 Diastolic blood pressure 84 mm[Hg] Darya Saira ADZ WORKER.SHUTTLECOCK FEATHER TRIMMER Work Phone: [facility] 09-07-2024 09:53-0500 Heart rate 68 /min Darya Saira ADZ WORKER.SHUTTLECOCK FEATHER TRIMMER Work Phone: [facility] 09-07-2024 09:53-0500 Respiratory rate 14 /min Darya Saira ADZ WORKER.SHUTTLECOCK FEATHER TRIMMER Work Phone: [facility] 09-07-2024 09:53-0500 SaO2% (BldA) [Mass fraction] 98 % Darya Saira ADZ WORKER.SHUTTLECOCK FEATHER TRIMMER Work Phone: [facility] 09-07-2024 09:53-0500 Systolic blood pressure 122 mm[Hg] Darya Saira ADZ WORKER.SHUTTLECOCK FEATHER TRIMMER Work Phone: [facility] 08-31-2024 16:16-0500 Body temperature 98.4 [degF] Dr. Dallas Reed MD Work Phone: [facility] 08-31-2024 16:16-0500 Diastolic blood pressure 90 mm[Hg] Dr. Dallas Reed MD Work Phone: [facility] 08-31-2024 16:16-0500 Heart rate 70 /min Dr. Dallas Reed MD Work Phone: [facility] 08-31-2024 16:16-0500 Respiratory rate 16 /min Dr. Dallas Reed MD Work Phone: [facility] 08-31-2024 16:16-0500 SaO2% (BldA) [Mass fraction] 97 % Dr. Dallas Reed MD Work Phone: [facility] 08-31-2024 16:16-0500 Systolic blood pressure 175 mm[Hg] Dr. Dallas Reed MD Work Phone: [facility] 08-31-2024 06:39-0500 Body mass index (BMI) [Ratio] 23.1 kg/m2 Dr. Dallas Reed MD Work Phone: [facility] 08-31-2024 06:39-0500 Body weight 69.[address] Dallas Reed MD Work Phone: [facility] 07-17-2024 12:41-0400 Body mass index (BMI) [Ratio] 23.87 kg/m2 Dallas Reed MD Work Phone: [facility] 07-17-2024 12:41-0400 Body temperature 98.1 [degF] Dallas Reed MD Work Phone: [facility] 07-17-2024 12:41-0400 Body weight 71.2 kg Dallas Reed MD Work Phone: [facility] 07-17-2024 12:41-0400 Diastolic blood pressure 62 mm[Hg] Dallas Reed MD Work Phone: [facility] 07-17-2024 12:41-0400 Heart rate 64 /min Dallas Reed MD Work Phone: [facility] 07-17-2024 12:41-0400 Respiratory rate 12 /min Dallas Reed MD Work Phone: [facility] 07-17-2024 12:41-0400 Systolic blood pressure 110 mm[Hg] Dallas Reed MD Work Phone: [facility] 06-07-2024 09:00-0400 Diastolic blood pressure 62 mm[Hg] Dallas Reed MD Work Phone: [facility] 06-07-2024 09:00-0400 Systolic blood pressure 124 mm[Hg] Dallas Reed MD Work Phone: [facility] 06-07-2024 08:29-0400 Body mass index (BMI) [Ratio] 24.17 kg/m2 Dallas Reed MD Work Phone: [facility] 06-07-2024 08:29-0400 Body temperature 98.49 [degF] Dallas Reed MD Work Phone: [facility] 06-07-2024 08:29-0400 Body weight 72.1 kg Dallas Reed MD Work Phone: [facility] 06-07-2024 08:29-0400 Heart rate 64 /min Dallas Reed MD Work Phone: [facility] 06-07-2024 08:29-0400 Respiratory rate 12 /min Dallas Reed MD Work Phone: [facility] 05-23-2024 15:20-0400 Diastolic blood pressure 90 mm[Hg] Adrian Bogner PA-C Work Phone: [facility] Comment on above: fab bp average 05-23-2024 15:20-0400 Systolic blood pressure 190 mm[Hg] Adrian Bogner PA-C Work Phone: [facility] Comment on above: fab bp average 05-23-2024 14:01-0400 Body height 172.7 cm Adrian Bogner PA-C Work Phone: [facility] 05-23-2024 14:01-0400 Body mass index (BMI) [Ratio] 23.72 kg/m2 Adrian Bogner PA-C Work Phone: [facility] 05-23-2024 14:01-0400 Body weight 70.76 kg Adrian Bogner PA-C Work Phone: [facility] 05-23-2024 14:01-0400 Heart rate 68 /min Adrian Bogner PA-C Work Phone: [facility] 05-23-2024 14:01-0400 Respiratory rate 12 /min Adrian Bogner PA-C Work Phone: [facility] 05-23-2024 14:01-0400 SaO2% (BldA) [Mass fraction] 98 % Adrian Bogner PA-C Work Phone: [facility] 03-11-2024 11:13-0400 Body mass index (BMI) [Ratio] 25.01 kg/m2 Prema Cyndie ADZ WORKER.SHUTTLECOCK FEATHER TRIMMER Work Phone: [facility] 03-11-2024 11:13-0400 Body temperature 97 [degF] Prema [place] ADZ WORKER.SHUTTLECOCK FEATHER TRIMMER Work Phone: [facility] 03-11-2024 11:13-0400 Body weight 74.6 kg Prema Cyndie ADZ WORKER.SHUTTLECOCK FEATHER TRIMMER Work Phone: [facility] 03-11-2024 11:13-0400 Diastolic blood pressure 78 mm[Hg] Prema [place] ADZ WORKER.SHUTTLECOCK FEATHER TRIMMER Work Phone: [facility] 03-11-2024 11:13-0400 Heart rate 67 /min Prema [place] ADZ WORKER.SHUTTLECOCK FEATHER TRIMMER Work Phone: [facility] 03-11-2024 11:13-0400 Respiratory rate 18 /min Prema [place] ADZ WORKER.SHUTTLECOCK FEATHER TRIMMER Work Phone: [facility] 03-11-2024 11:13-0400 SaO2% (BldA) [Mass fraction] 97 % Prema [place] ADZ WORKER.SHUTTLECOCK FEATHER TRIMMER Work Phone: [facility] 03-11-2024 11:13-0400 Systolic blood pressure 152 mm[Hg] Prema Cyndie ADZ WORKER.SHUTTLECOCK FEATHER TRIMMER Work Phone: [facility] 02-09-2024 16:15-0400 Body mass index (BMI) [Ratio] 25.41 kg/m2 Ayla Athy PA-C Work Phone: [facility] 02-09-2024 16:15-0400 Body temperature 97.7 [degF] Ayla Athy PA-C Work Phone: [facility] 02-09-2024 16:15-0400 Body weight 75.8 kg Ayla Athy PA-C Work Phone: [facility] 02-09-2024 16:15-0400 Diastolic blood pressure 80 mm[Hg] Ayla Athy PA-C Work Phone: [facility] 02-09-2024 16:15-0400 Heart rate 58 /min Ayla Athy PA-C Work Phone: [facility] 02-09-2024 16:15-0400 Respiratory rate 16 /min Ayla Athy PA-C Work Phone: [facility] 02-09-2024 16:15-0400 SaO2% (BldA) [Mass fraction] 95 % Ayla Athy PA-C Work Phone: [facility] 02-09-2024 16:15-0400 Systolic blood pressure 124 mm[Hg] Ayla Worthingtony PA-C Work Phone: [facility] 01-17-2024 08:24-0400 Body height 172.7 cm Shaun Kowalski MD Work Phone: [facility] 01-17-2024 08:24-0400 Body mass index (BMI) [Ratio] 25.32 kg/m2 Shaun Kowalski MD Work Phone: [facility] 01-17-2024 08:24-0400 Body temperature 97.11 [degF] Shaun Kowalski MD Work Phone: [facility] 01-17-2024 08:24-0400 Body weight 75.52 kg Shaun Kowalski MD Work Phone: [facility] 01-17-2024 08:24-0400 Diastolic blood pressure 85 mm[Hg] Shaun Kowalski MD Work Phone: [facility] 01-17-2024 08:24-0400 Heart rate 63 /min Shaun Kowalski MD Work Phone: [facility] 01-17-2024 08:24-0400 Respiratory rate 18 /min Shaun Kowalski MD Work Phone: [facility] 01-17-2024 08:24-0400 SaO2% (BldA) [Mass fraction] 97 % Shaun Kowalski MD Work Phone: [facility] 01-17-2024 08:24-0400 Systolic blood pressure 141 mm[Hg] Shaun Kowalski MD Work Phone: [facility] 01-10-2024 08:57-0400 Body mass index (BMI) [Ratio] 25.09 kg/m2 Darya Borden APRN.SHUTTLECOCK FEATHER TRIMMER Work Phone: [facility] 01-10-2024 08:57-0400 Body weight 74.84 kg Darya Borden ADZ WORKER.SHUTTLECOCK FEATHER TRIMMER Work Phone: [facility] 01-10-2024 08:57-0400 Diastolic blood pressure 72 mm[Hg] Darya Borden APRN.SHUTTLECOCK FEATHER TRIMMER Work Phone: [facility] 01-10-2024 08:57-0400 Heart rate 61 /min Darya Borden APRN.SHUTTLECOCK FEATHER TRIMMER Work Phone: [facility] 01-10-2024 08:57-0400 Respiratory rate 18 /min Darya Borden APRN.SHUTTLECOCK FEATHER TRIMMER Work Phone: [facility] 01-10-2024 08:57-0400 Systolic blood pressure 112 mm[Hg] Darya Borden APRN.SHUTTLECOCK FEATHER TRIMMER Work Phone: [facility] 12-27-2023 08:40-0400 Diastolic blood pressure 74 mm[Hg] [facility] 12-27-2023 08:40-0400 Heart rate 67 /min [facility] 12-27-2023 08:40-0400 Respiratory rate 16 /min [facility] 12-27-2023 08:40-0400 SaO2% (BldA) [Mass fraction] 97 % [facility] 12-27-2023 08:40-0400 Systolic blood pressure 159 mm[Hg] [facility] 12-27-2023 07:28-0400 Body height 172.72 cm [facility] 12-27-2023 07:28-0400 Body mass index (BMI) [Ratio] 25 kg/m2 [facility] 12-27-2023 07:28-0400 Body temperature 97.8 [degF] [facility] 12-27-2023 07:28-0400 Body weight 74.84 kg [facility] 08-10-2023 08:08-0500 Body height 172.7 cm 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 Work Phone: [facility] 08-10-2023 08:08-0500 Body weight 72.58 kg 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 Work Phone: [facility] 08-10-2023 08:08-0500 Diastolic blood pressure 74 mm[Hg] 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 Work Phone: [facility] 08-10-2023 08:08-0500 Heart rate 68 /min 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 Work Phone: [facility] 08-10-2023 08:08-0500 Respiratory rate 16 /min 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 Work Phone: [facility] 08-10-2023 08:08-0500 SaO2% (BldA) [Mass fraction] 98 % 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 Work Phone: [facility] 08-10-2023 08:08-0500 Systolic blood pressure 122 mm[Hg] 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 Work Phone: [facility] 06-25-2023 13:25-0400 Body height 172.[address] Dallas Reed Work Phone: [facility] 06-25-2023 13:25-0400 Body mass index (BMI) [Ratio] 24.9 kg/m2 Dr. Dallas Reed Work Phone: [facility] 06-25-2023 13:25-0400 Body temperature 97.1 [degF] Dr. Dallas Reed Work Phone: [facility] 06-25-2023 13:25-0400 Body weight 74.[address] Dallas Reed Work Phone: [facility] 06-25-2023 13:25-0400 Diastolic blood pressure 79 mm[Hg] Dr. Dallas Reed Work Phone: 5(910)476-342744 [place] [address] 06-25-2023 13:25-0400 Heart rate 61 /min Dr. Dallas Reed Work Phone: 1(650)526-824909 [place] [address] 06-25-2023 13:25-0400 Respiratory rate 16 /min Dr. Dallas Reed Work Phone: 0(041)123-103509 [place] [address] 06-25-2023 13:25-0400 SaO2% (BldA) [Mass fraction] 98 % Dr. Dallas Reed Work Phone: 3(039)677-639709 [place] [address] 06-25-2023 13:25-0400 Systolic blood pressure 202 mm[Hg] Dr. Dallas Reed Work Phone: 0(366)310-966609 [place] [address] 05-26-2023 14:15-0400 Body height 172.[address] Dallas Reed Work Phone: 7(499)215-328509 [place] [address] 05-26-2023 14:15-0400 Body mass index (BMI) [Ratio] 25.4 kg/m2 Dr. Dallas Reed Work Phone: 2(234)526-354909 [place] [address] 05-26-2023 14:15-0400 Body weight 75.[address] Dallas Reed Work Phone: 9(594)922-495709 [place] [address] 05-26-2023 14:15-0400 Diastolic blood pressure 79 mm[Hg] Dr. Dallas Reed Work Phone: 1(032)701-064009 [place] [address] 05-26-2023 14:15-0400 Heart rate 63 /min Dr. Dallas Reed Work Phone: 5(014)567-619209 [place] [address] 05-26-2023 14:15-0400 Respiratory rate 16 /min Dr. Dallas Reed Work Phone: 9(439)691-779909 [place] [address] 05-26-2023 14:15-0400 SaO2% (BldA) [Mass fraction] 97 % Dr. Dallas Reed Work Phone: 1(631)229-415909 [place] [address] 05-26-2023 14:15-0400 Systolic blood pressure 159 mm[Hg] Dr. Dallas Reed Work Phone: [facility] 04-19-2023 10:15-0400 Diastolic blood pressure 68 mm[Hg] Dr. Dallas Reed Work Phone: [facility] 04-19-2023 10:15-0400 Heart rate 64 /min Dr. Dallas Reed Work Phone: [facility] 04-19-2023 10:15-0400 Respiratory rate 17 /min Dr. Dallas Reed Work Phone: [facility] 04-19-2023 10:15-0400 SaO2% (BldA) [Mass fraction] 98 % Dr. Dallas Reed Work Phone: [facility] 04-19-2023 10:15-0400 Systolic blood pressure 169 mm[Hg] Dr. Dallas Reed Work Phone: [facility] 04-16-2023 10:16-0400 Body weight 74.39 kg Dallas Reed MD Work Phone: [facility] 04-16-2023 10:16-0400 Diastolic blood pressure 70 mm[Hg] Dallas Reed MD Work Phone: [facility] 04-16-2023 10:16-0400 Heart rate 60 /min Dallas Reed MD Work Phone: [facility] 04-16-2023 10:16-0400 Respiratory rate 16 /min Dallas Reed MD Work Phone: [facility] 04-16-2023 10:16-0400 Systolic blood pressure 146 mm[Hg] Dallas Reed MD Work Phone: [facility] 04-08-2023 17:09-0400 Body temperature 97.8 [degF] Dr. Dallas Reed Work Phone: [facility] 04-08-2023 17:09-0400 Diastolic blood pressure 66 mm[Hg] Dr. Dallas Reed Work Phone: [facility] 04-08-2023 17:09-0400 Heart rate 71 /min Dr. Dallas Reed Work Phone: 1(403)093-523109 [place] [address] 04-08-2023 17:09-0400 Respiratory rate 20 /min Dr. Dallas Reed Work Phone: 5(451)913-195009 [place] [address] 04-08-2023 17:09-0400 SaO2% (BldA) [Mass fraction] 99 % Dr. Dallas Reed Work Phone: 6(429)910-123709 [place] [address] 04-08-2023 17:09-0400 Systolic blood pressure 159 mm[Hg] Dr. Dallas Reed Work Phone: 2(731)422-827109 [place] [address] 04-08-2023 08:00-0400 Inhaled oxygen flow rate 2 L/min Dr. Dallas Reed Work Phone: 7(759)163-317609 [place] [address] 04-08-2023 01:32-0400 Body mass index (BMI) [Ratio] 25.2 kg/m2 Dr. Dallas Reed Work Phone: 6(154)890-767309 [place] [address] 04-08-2023 01:32-0400 Body weight 75.[address] Dallas Reed Work Phone: 1(019)560-003809 [place] [address] 04-07-2023 10:14-0400 Body height 172.[address] Dallas Reed Work Phone: 0(151)759-420809 [place] [address] 03-05-2023 07:49-0400 Diastolic blood pressure 75 mm[Hg] Dr. Dallas Reed Work Phone: 4(893)855-798409 [place] [address] 03-05-2023 07:49-0400 Systolic blood pressure 156 mm[Hg] Dr. Dallas Reed Work Phone: 0(777)416-833809 [place] [address] 03-04-2023 09:57-0400 Diastolic blood pressure 76 mm[Hg] Dallas Reed MD Work Phone: [facility] 03-04-2023 09:57-0400 Heart rate 62 /min Dallas Reed MD Work Phone: [facility] 03-04-2023 09:57-0400 Systolic blood pressure 160 mm[Hg] Dallas Reed MD Work Phone: [facility] 03-04-2023 09:48-0400 Body weight 73.48 kg Dallas Reed MD Work Phone: [facility] 03-04-2023 09:48-0400 Respiratory rate 12 /min Dallas Reed MD Work Phone: [facility] 02-25-2023 14:17-0400 Body mass index (BMI) [Ratio] 25 kg/m2 Dr. Dallas Reed Work Phone: [facility] 02-25-2023 14:17-0400 Body temperature 98.1 [degF] Dr. Dallas Reed Work Phone: [facility] 02-25-2023 14:17-0400 Body weight 74.[address] Dallas Reed Work Phone: [facility] 02-25-2023 14:17-0400 Diastolic blood pressure 65 mm[Hg] Dr. Dallas Reed Work Phone: [facility] 02-25-2023 14:17-0400 Heart rate 68 /min Dr. Dallas Reed Work Phone: [facility] 02-25-2023 14:17-0400 Respiratory rate 16 /min Dr. Dallas Reed Work Phone: [facility] 02-25-2023 14:17-0400 SaO2% (BldA) [Mass fraction] 98 % Dr. Dallas Reed Work Phone: [facility] 02-25-2023 14:17-0400 Systolic blood pressure 129 mm[Hg] Dr. Dallas Reed Work Phone: [facility] 02-23-2023 09:51-0400 Diastolic blood pressure 97 mm[Hg] Dr. Dallas Reed Work Phone: [facility] 02-23-2023 09:51-0400 Systolic blood pressure 199 mm[Hg] Dr. Dallas Reed Work Phone: [facility] 02-23-2023 09:36-0400 Body temperature 97.8 [degF] Dr. Dallas Reed Work Phone: [facility] 02-23-2023 09:36-0400 Heart rate 55 /min Dr. Dallas Reed Work Phone: [facility] 02-23-2023 09:36-0400 Respiratory rate 18 /min Dr. Dallas Reed Work Phone: [facility] 02-23-2023 09:36-0400 SaO2% (BldA) [Mass fraction] 99 % Dr. Dallas Reed Work Phone: [facility] 02-01-2023 10:45-0400 Body temperature 96.91 [degF] Adrian Bogner PA-C Work Phone: [facility] 02-01-2023 10:45-0400 Body weight 73.48 kg Adrian Bogner PA-C Work Phone: [facility] 02-01-2023 10:45-0400 Diastolic blood pressure 64 mm[Hg] Adrian Bogner PA-C Work Phone: [facility] 02-01-2023 10:45-0400 Heart rate 64 /min Adrian Bogner PA-C Work Phone: [facility] 02-01-2023 10:45-0400 Respiratory rate 16 /min Adrian Bogner PA-C Work Phone: [facility] 02-01-2023 10:45-0400 SaO2% (BldA) [Mass fraction] 99 % Adrian Bogner PA-C Work Phone: [facility] 02-01-2023 10:45-0400 Systolic blood pressure 108 mm[Hg] Adrian Bogner PA-C Work Phone: [facility] 01-15-2023 11:59-0400 Diastolic blood pressure 72 mm[Hg] Lisa Rodriguez MD Work Phone: [facility] 01-15-2023 11:59-0400 Heart rate 67 /min Lisa Rodriguez MD Work Phone: [facility] 01-15-2023 11:59-0400 Respiratory rate 18 /min Lisa Rodriguez MD Work Phone: [facility] 01-15-2023 11:59-0400 SaO2% (BldA) [Mass fraction] 97 % Lisa Rodriguez MD Work Phone: [facility] 01-15-2023 11:59-0400 Systolic blood pressure 147 mm[Hg] Lisa Rodriguez MD Work Phone: [facility] 01-15-2023 11:43-0400 Body temperature 97.81 [degF] Lisa Rodriguez MD Work Phone: [facility] 01-15-2023 10:54-0400 Body height 172.7 cm Lisa Rodriguez MD Work Phone: [facility] 01-15-2023 10:54-0400 Body mass index (BMI) [Ratio] 24.33 kg/m2 Lisa Rodriguez MD Work Phone: [facility] 01-15-2023 10:54-0400 Body weight 72.58 kg Lisa Rodriguez MD Work Phone: [facility] 01-07-2023 16:10-0400 Body height 172.7 cm Lisa Rodriguez MD Work Phone: [facility] 01-07-2023 16:10-0400 Body weight 72.58 kg Lisa Rodriguez MD Work Phone: [facility] 01-07-2023 16:10-0400 Diastolic blood pressure 68 mm[Hg] Lisa Rodriguez MD Work Phone: [facility] 01-07-2023 16:10-0400 Heart rate 74 /min Lisa Rodriguez MD Work Phone: [facility] 01-07-2023 16:10-0400 Systolic blood pressure 114 mm[Hg] Lisa Rodriguez MD Work Phone: [facility] 12-30-2022 11:57-0400 Body temperature 97.39 [degF] Dallas Reed MD Work Phone: [facility] 12-30-2022 11:57-0400 Body weight 72.35 kg Dallas Reed MD Work Phone: [facility] 12-30-2022 11:57-0400 Diastolic blood pressure 80 mm[Hg] Dallas Reed MD Work Phone: [facility] 12-30-2022 11:57-0400 Heart rate 64 /min Dallas Reed MD Work Phone: [facility] 12-30-2022 11:57-0400 Respiratory rate 16 /min Dallas Reed MD Work Phone: [facility] 12-30-2022 11:57-0400 Systolic blood pressure 132 mm[Hg] Dallas Reed MD Work Phone: [facility] 07-03-2022 16:55-0400 Body temperature 97.39 [degF] Gavin Rivero APRN.SHUTTLECOCK FEATHER TRIMMER Work Phone: [facility] 07-03-2022 16:55-0400 Body weight 76.11 kg Gavin Rivero ADZ WORKER.SHUTTLECOCK FEATHER TRIMMER Work Phone: [facility] 07-03-2022 16:55-0400 Diastolic blood pressure 78 mm[Hg] Gavin Rivero ADZ WORKER.SHUTTLECOCK FEATHER TRIMMER Work Phone: [facility] 07-03-2022 16:55-0400 Heart rate 69 /min Gavin Rivero ADZ WORKER.SHUTTLECOCK FEATHER TRIMMER Work Phone: [facility] 07-03-2022 16:55-0400 Respiratory rate 18 /min Gavinnoel Rivero ADZ WORKER.SHUTTLECOCK FEATHER TRIMMER Work Phone: [facility] 07-03-2022 16:55-0400 SaO2% (BldA) [Mass fraction] 98 % Gavin Josefa ADZ WORKER.SHUTTLECOCK FEATHER TRIMMER Work Phone: [facility] 07-03-2022 16:55-0400 Systolic blood pressure 122 mm[Hg] Gavin Rivero ADZ WORKER.SHUTTLECOCK FEATHER TRIMMER Work Phone: [facility] 02-17-2022 11:32-0400 Body temperature 99.39 [degF] Nona Maloney APRN.SHUTTLECOCK FEATHER TRIMMER Work Phone: [facility] 02-17-2022 11:32-0400 Body weight 77.2 kg Nona Maloney APRN.SHUTTLECOCK FEATHER TRIMMER Work Phone: [facility] 02-17-2022 11:32-0400 Diastolic blood pressure 68 mm[Hg] Nona Maloney APRN.SHUTTLECOCK FEATHER TRIMMER Work Phone: [facility] 02-17-2022 11:32-0400 Heart rate 82 /min Nona Maloney APRN.SHUTTLECOCK FEATHER TRIMMER Work Phone: [facility] 02-17-2022 11:32-0400 Respiratory rate 20 /min Nona Maloney APRN.SHUTTLECOCK FEATHER TRIMMER Work Phone: [facility] 02-17-2022 11:32-0400 SaO2% (BldA) [Mass fraction] 96 % Nona Maloney APRN.SHUTTLECOCK FEATHER TRIMMER Work Phone: [facility] 02-17-2022 11:32-0400 Systolic blood pressure 122 mm[Hg] Nona Maloney APRN.SHUTTLECOCK FEATHER TRIMMER Work Phone: [facility] 02-10-2022 09:14-0400 Diastolic blood pressure 76 mm[Hg] Mi Nurse Work Phone: [facility] 02-10-2022 09:14-0400 Heart rate 62 /min Mi Nurse Work Phone: [facility] 02-10-2022 09:14-0400 Systolic blood pressure 128 mm[Hg] Mi Nurse Work Phone: [facility] 01-13-2022 08:58-0400 Diastolic blood pressure 64 mm[Hg] Dallas Reed MD Work Phone: [facility] 01-13-2022 08:58-0400 Heart rate 60 /min Dallas Reed MD Work Phone: [facility] 01-13-2022 08:58-0400 Systolic blood pressure 150 mm[Hg] Dallas Reed MD Work Phone: [facility] 01-13-2022 08:47-0400 Body temperature 97.5 [degF] Dallas Reed MD Work Phone: [facility] 01-13-2022 08:47-0400 Body weight 73.94 kg Dallas Reed MD Work Phone: [facility] 01-13-2022 08:47-0400 Respiratory rate 20 /min Dallas Reed MD Work Phone: [facility] 11-12-2021 14:57-0500 Body height 172.[address] Dallas Reed Work Phone: [facility] Work Phone: 11-12-2021 14:57-0500 Body mass index (BMI) [Ratio] 25.4 kg/m2 Dr. Dallas Reed Work Phone: [facility] Work Phone: 11-12-2021 14:57-0500 Body weight 75.[address] Dallas Reed Work Phone: [facility] Work Phone: 11-12-2021 14:57-0500 Diastolic blood pressure 73 mm[Hg] Dr. Dallas Reed Work Phone: [facility] Work Phone: 11-12-2021 14:57-0500 Heart rate 92 /min Dr. Dallas Reed Work Phone: [facility] Work Phone: 11-12-2021 14:57-0500 Respiratory rate 18 /min Dr. Dallsa Reed Work Phone: [facility] Work Phone: 11-12-2021 14:57-0500 SaO2% (BldA) [Mass fraction] 99 % Dr. Dallas Reed Work Phone: [facility] Work Phone: 11-12-2021 14:57-0500 Systolic blood pressure 132 mm[Hg] Dr. Dallas Reed Work Phone: [facility] Work Phone: 07-19-2019 11:45-0400 Body Temperature 98.01 [degF] [place], [place] 07-19-2019 11:45-0400 BP Diastolic 94 mm[Hg] [place], [place] 07-19-2019 11:45-0400 BP Systolic 165 mm[Hg] [place] 07-19-2019 11:45-0400 Pulse (Heart Rate) 76 /min [place], [place] 07-19-2019 11:45-0400 Pulse Oximetry 95 % [place] 07-19-2019 11:45-0400 Respiratory Rate 20 /min [place], [place] 07-19-2019 07:14-0400 BMI (Body Mass Index) 28.94 kg/m2 [place], [place] 07-19-2019 07:14-0400 Body weight 88.91 kg [place], [place] 07-19-2019 07:14-0400 Height 175.3 cm [place] Encounters Encounter Date Encounter Type Care Provider Facility Start: 05-18-2025 End: 05-18-2025 Office outpatient visit 25 minutes Darya Borden APRN.CNP Work Phone: [facility] Comment on above: Fatigue, unspecified type (Primary Dx); Essential hypertension; Chronic diastolic CHF (congestive heart failure) (HCC); Anemia, unspecified type; Subclinical hypothyroidism Start: 05-18-2025 End: 05-18-2025 ambulatory DARYA Durán SAIRA Facility:[facility] Start: 05-10-2025 End: 05-10-2025 Patient encounter procedure Mike Jay CLIENT ADVISOR-C -[facility] Work Phone: Start: 05-10-2025 End: 05-10-[address] Dallas Reed MD Work Phone: -[facility] Start: 05-10-2025 End: 05-10-2025 ambulatory Mike Jay CLIENT ADVISOR Facility:[facility] Start: 04-30-2025 End: 04-30-[address] Dallas Reed MD Work Phone: -[facility] Start: 04-30-2025 End: 04-30-[address] Dustin Hawk MD -[facility] Work Phone: Start: 04-30-2025 End: 04-30-2025 ambulatory Dustin Hawk Facility:[facility] Start: 04-18-2025 End: 04-18-[address] Dustin Hawk MD -[facility] Work Phone: Start: 04-18-2025 End: 04-18-[address] Dallas Reed MD Work Phone: -[facility] Start: 04-03-2025 End: 04-03-2025 ambulatory Luci Matute RN Rn Perioperative Management Comment on above: Bi-Weekly Outreach ( Recurring) for Chronic Disease Management, Bi-Weekly Outreach (Recurring) for Chronic Disease Management Start: 03-28-2025 End: 03-28-2025 Refill Dallas Reed MD Work Phone: [facility] Comment on above: Refill Request Start: 03-20-2025 End: 03-20-2025 ambulatory Adriane White RN Rn Perioperative Management Start: 03-20-2025 End: 03-20-2025 Patient encounter procedure Adriane White RN Rn Perioperative Management Comment on above: Bi-Weekly Outreach ( Recurring) for Chronic Disease Management Start: 03-19-2025 End: 03-19-2025 Telephone encounter Essence Romero PA-C Work Phone: [facility] Comment on above: 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) Start: 03-16-2025 End: 03-16-2025 Patient encounter status Ana Bobo MD Work Phone: [facility] Start: 03-16-2025 End: 03-16-2025 Subsequent hospital visit by physician Ana Bobo MD Work Phone: [facility] Special Procedures Comment on above: Encounter for prepro cedural laboratory examination (Primary Dx); Type II endoleak of aortic graft Start: 03-16-2025 End: 03-16-2025 ambulatory [facility] Start: 03-16-2025 End: 03-16-2025 Encounter for preprocedural laboratory examination [facility] Start: 03-13-2025 End: 03-13-2025 Follow-up encounter Darya Borden APRN.CNP Work Phone: [facility] Start: 03-12-2025 End: 03-12-2025 Telephone encounter Munira Dickinson RN [facility] Special Procedur es Start: 03-12-2025 End: 03-12-2025 Office outpatient visit 25 minutes Darya Borden APRN.SHUTTLECOCK FEATHER TRIMMER Work Phone: [facility] Comment on above: Subclinical hypothyr oidism (Primary Dx); Fatigue, unspecified type; Type II endoleak of aortic graft; Anemia of chronic disease; Stage 3b chronic kidney disease (HCC); Essential hypertension; Chronic diastolic CHF (congestive heart failure) (HCC) Start: 03-12-2025 End: 03-12-2025 ambulatory DARYA BORDEN Facility:[facility] Start: 03-02-2025 End: 03-02-2025 ambulatory Adriane White RN Rn Perioperative Management Start: 03-02-2025 End: 03-02-2025 Patient encounter procedure Adriane White RN Rn Perioperative Management Comment on above: Bi-Weekly Outreach ( Recurring) for Chronic Disease Management Start: 03-01-2025 End: 03-01-2025 Documentation procedure Ana Bobo MD Work Phone: [facility] Procedures Start: 02-27-2025 End: 02-27-2025 Patient encounter procedure Carine PEREZ -[facility] Work Phone: Start: 02-27-2025 End: 02-27-[address] Dallas Reed MD Work Phone: [facility] Work Phone: Start: 02-26-2025 End: 02-26-2025 ambulatory Adriane White RN Rn Perioperative Management Start: 02-26-2025 End: 02-26-2025 Patient encounter procedure Adriane White RN Rn Perioperative Management Comment on above: Care Coordination (C lerma review and outreach for chf gdmt care path) Start: 02-19-2025 End: 02-19-2025 ambulatory Adriane White wheel alignment technicianRn Perioperative Management Start: 02-19-2025 End: 02-19-2025 Patient encounter procedure Adriane White wheel alignment technicianRn Perioperative Management Comment on above: Bi-Weekly Outreach ( Recurring) for Chronic Disease Management Start: 02-15-2025 End: 02-16-2025 Refill Dallas Reed MD Work Phone: [facility] [place] Comment on above: Refill Request Start: 02-14-2025 ambulatory Dustin Hawk Facility:[facility] Start: 02-14-2025 Non-patient / Non-visit Dr. Dustin ramirez MD -[facility] Start: 02-14-2025 End: 02-14-2025 Admission to same day surgery center Dr. Dustin Hawk MD -Bit Sharpener/Special Procedures Work Phone: Start: 02-14-2025 End: 02-14-[address] Dallas Reed MD Work Phone: [facility] Work Phone: Start: 02-01-2025 End: 02-01-2025 ambulatory Adriane White RN Rn Perioperative Management Start: 02-01-2025 End: 02-01-2025 Patient encounter procedure Adriane White RN Rn Perioperative Management Comment on above: Bi-Weekly Outreach ( Recurring) for Chronic Disease Management Start: 01-18-2025 End: 01-18-2025 Patient encounter procedure Carine Noble PA -[facility] Work Phone: Start: 01-17-2025 End: 01-18-2025 ambulatory Adriane White RN Rn Perioperative Management Start: 01-17-2025 End: 01-17-2025 Patient encounter procedure Adriane White RN Rn Perioperative Management Comment on above: Initial enrollment o [facility] for Chronic Disease Management Start: 01-12-2025 End: 01-12-2025 Emergency department patient visit Dr. Dallas Reed MD Work Phone: -Emergency Department Work Phone: Start: 12-26-2024 End: 12-26-2024 ambulatory Adriane White RN Rn Perioperative Management Start: 12-26-2024 End: 12-26-2024 Patient encounter procedure Adriane White RN Rn Perioperative Management Comment on above: Weekly phone contact (Recurring) for Transitional Care Management Start: 12-25-2024 End: 12-25-[address] Dustin Hawk MD -[facility] Work Phone: Start: 12-25-2024 End: 12-25-2024 ambulatory Dustin Hawk Facility:[facility] Start: 12-22-2024 End: 12-22-2024 ambulatory Ramon Lee PT Work Phone: [facility] Comment on above: Proximal leg weaknes s (Primary Dx); Fall, subsequent encounter; Contusion of scalp, subsequent encounter Start: 12-19-2024 End: 12-19-2024 Patient encounter procedure Adriane White RN Rn Perioperative Management Comment on above: Weekly phone contact (Recurring) for Transitional Care Management Start: 12-19-2024 End: 12-19-2024 ambulatory Ramontrudy Lee PT Work Phone: [facility] Comment on above: Proximal leg weaknes s (Primary Dx); Fall, subsequent encounter; Contusion of scalp, subsequent encounter Start: 12-15-2024 End: 12-15-2024 ambulatory Ramontrudy Lee PT Work Phone: [facility] Comment on above: Proximal leg weaknes s (Primary Dx); Fall, subsequent encounter; Contusion of scalp, subsequent encounter Start: 12-12-2024 End: 12-12-2024 ambulatory Ramontrudy Lee PT Work Phone: [facility] Comment on above: Proximal leg weaknes s (Primary Dx) Start: 12-11-2024 End: 12-11-2024 ambulatory Adriane White RN Rn Perioperative Management Start: 12-11-2024 End: 12-11-2024 Patient encounter procedure Adriane White RN Rn Perioperative Management Comment on above: Weekly phone contact (Recurring) for Transitional Care Management Refill Request Start: 12-11-2024 End: 12-11-2024 Telephone encounter Emily Pedrokanwal [facility] Work Phone: [facility] Comment on above: Medication Question Start: 12-08-2024 End: 12-08-2024 ambulatory DALLAS REED Facility:[facility] Start: 12-08-2024 End: 12-08-2024 Patient encounter procedure Dallas Reed MD Work Phone: [facility] [place] Comment on above: 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); Chronic diastolic CHF (congestive heart failure) (HCC); Stage 3b chronic kidney disease (HCC); Essential hypertension Start: 12-08-2024 End: 12-08-2024 ambulatory Rmaon Lee PT Work Phone: [facility] Comment on above: Fall, subsequent enc ounter (Primary Dx); Proximal leg weakness; Contusion of scalp, subsequent encounter Start: 12-06-2024 End: 12-06-2024 ambulatory Ramontrudy Lee PT Work Phone: [facility] Comment on above: Fall, subsequent enc ounter (Primary Dx); Proximal leg weakness; Contusion of scalp, subsequent encounter Start: 12-04-2024 End: 12-05-2024 ambulatory Adriane White RN Rn Perioperative Management Start: 12-04-2024 End: 12-05-2024 Patient encounter procedure Adriane White wheel alignment technicianRn Perioperative Management Comment on above: Initial phone contac t for Transitional Care Management Transition Of Care; Heart Failure (TCM Pharmacy-Hospital discharge 12/01/24) Start: 12-02-2024 End: 12-02-2024 Telephone encounter Dustin Lombardi APRN.SHUTTLECOCK FEATHER TRIMMER Work Phone: Cardiothoracic Comment on above: Patient Question; Me dication Problem Start: 11-28-2024 End: 12-01-2024 Evaluation and management of inpatient RAN NEEL Facility:[facility] Start: 11-28-2024 End: 11-28-2024 Emergency department patient visit Dr. Dallas Reed MD Work Phone: -Emergency Department Work Phone: Start: 11-28-2024 End: 11-28-2024 Subsequent hospital visit by physician [facility] Cat Scan Comment on above: Left lower quadrant abdominal pain [R10.32] Start: 11-28-2024 End: 11-28-2024 ambulatory Tali Maldonado APRN.SHUTTLECOCK FEATHER TRIMMER Work Phone: Critical Care Start: 11-28-2024 End: 12-08-2024 Telephone encounter Dallas Reed MD Work Phone: [facility] [place] Comment on above: Results Start: 11-27-2024 End: 11-27-2024 ambulatory DARYA BORDEN Facility:[facility] Start: 11-27-2024 End: 11-27-2024 ambulatory DALLAS REED Facility:[facility] Start: 11-27-2024 End: 11-27-2024 Patient encounter procedure Gavin Rivero ADZ WORKER.SHUTTLECOCK FEATHER TRIMMER Work Phone: [facility] Comment on above: Procedure not ammy d out (Primary Dx) Left lower quadrant abdominal pain (Primary Dx) Start: 11-24-2024 End: 11-24-2024 ambulatory Ramon Lee PT [facility] Comment on above: Fall, subsequent enc ounter (Primary Dx); Proximal leg weakness; Contusion of scalp, subsequent encounter Start: 11-21-2024 End: 11-21-2024 ambulatory Ramon Lee PT [facility] Comment on above: Fall, subsequent enc ounter (Primary Dx); Contusion of scalp, subsequent encounter; Proximal leg weakness Start: 11-09-2024 End: 11-09-2024 ambulatory DALLAS REED Facility:[facility] Start: 11-09-2024 End: 11-09-2024 Office outpatient visit 15 minutes Dallas Reed MD Work Phone: [facility] [place] Comment on above: Contusion of scalp, subsequent encounter (Primary Dx); Fall, subsequent encounter; Proximal leg weakness Start: 11-07-2024 End: 11-07-2024 ambulatory DALLAS REED Facility:[facility] Start: 11-07-2024 End: 11-07-2024 Patient encounter procedure Elbert Hawk APRN.SHUTTLECOCK FEATHER TRIMMER Work Phone: [facility] Comment on above: Abrasion of head, in itial encounter (Primary Dx) Start: 10-02-2024 End: 10-02-2024 Refill Darya Borden APRN.SHUTTLECOCK FEATHER TRIMMER Work Phone: [facility] [place] Comment on above: Refill Request Start: 09-15-2024 End: 09-15-[address] Lara Fonseca MD -[facility] Work Phone: Start: 09-15-2024 End: 09-15-2024 ambulatory Lara Fonseca Facility:[facility] Start: 09-08-2024 End: 09-08-2024 Telephone encounter Darya Borden APRN.SHUTTLECOCK FEATHER TRIMMER Work Phone: [facility] [place] Comment on above: Results Start: 09-07-2024 End: 09-07-2024 ambulatory DARYA BORDEN Facility:[facility] Start: 09-07-2024 End: 09-07-2024 Patient encounter procedure Darya Borden APRN.SHUTTLECOCK FEATHER TRIMMER Work Phone: [facility] [place] Comment on above: Medicare annual well ness visit, subsequent (Primary Dx); Hypothyroidism, unspecified type; TIA (transient ischemic attack); Mixed hyperlipidemia; Primary hypertension; Screening for depression; Encounter for screening examination for other mental health and behavioral disorders; Spigelian hernia; Stage 3b chronic kidney disease (HCC) Start: 08-31-2024 ambulatory Lara Fonseca Facilit y:[facility] Start: 08-31-2024 Non-patient / Non-visit Dr. Garrison Fonseca MD -[facility] Start: 08-31-2024 End: 08-31-2024 Admission to same day surgery center Dr. Lara Fonseca MD -[facility] Start: 08-31-2024 End: 08-31-2024 ambulatory Lara Fonseca Facility:[facility] Start: 08-28-2024 End: 08-28-2024 ambulatory Fide Goff RN Rn Perioperative Management Comment on above: CDM (Chronic Disease Management Routine Call/) Start: 08-24-2024 End: 08-24-2024 ambulatory Fide Goff RN Rn Perioperative Management Comment on above: CDM (Chronic Disease Management Routine Call/) Start: 08-23-2024 ambulatory Lara Fonseca Facilit y:[facility] Start: 08-23-2024 Non-patient / Non-visit Dr. Garrison Fonseca MD -[facility] Start: 08-04-2024 End: 08-04-2024 ambulatory DALLAS REED Facility:[facility] Start: 08-01-2024 End: 08-03-2024 Telephone encounter Dallas Reed MD Work Phone: [facility] [place] Comment on above: Surgical Clearance F orms Start: 07-26-2024 End: 07-26-2024 ambulatory Lara Fonseca Facility:[facility] Start: 07-24-2024 End: 07-24-2024 ambulatory Fide Goff RN Rn Perioperative Management Comment on above: CDM (Chronic Disease Management Routine Call/) Start: 07-22-2024 End: 07-22-2024 ambulatory Fide Goff RN Rn Perioperative Management Comment on above: CDM (Chronic Disease Management Routine Call/) Start: 07-17-2024 End: 07-17-2024 ambulatory DALLAS REED Facility:[facility] Start: 07-17-2024 End: 07-17-2024 Office outpatient visit 25 minutes Dallas Reed MD Work Phone: [facility] [place] Comment on above: Spigelian hernia (Pr imary Dx); 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); S/P AAA repair; Pancreatic cyst; Splenomegaly Start: 07-11-2024 End: 07-11-2024 Emergency department patient visit Veenalarisa Nelson Facility:[facility] Start: 07-11-2024 End: 07-11-2024 ambulatory DALLAS REED Facility:[facility] Start: 07-11-2024 End: 07-11-2024 Patient encounter procedure Gavin Shaynacristinmaame VAZQUEZ Work Phone: [facility] Comment on above: Procedure not ammy d out (Primary Dx) Start: 07-07-2024 End: 07-07-2024 ambulatory Dallas Reed Facility:[facility] Start: 06-22-2024 End: 06-23-2024 ambulatory Fide Goff RN Rn Perioperative Management Comment on above: CDM (Engagement Call ) Start: 06-07-2024 End: 06-07-2024 ambulatory DALLAS REED Facility:[facility] Start: 06-07-2024 End: 06-07-2024 Office outpatient visit 25 minutes Dallas Reed MD Work Phone: [facility] [place] Comment on above: TIA (transient ische raegan attack) (Primary Dx); S/P carotid endarterectomy right; Chronic diastolic CHF (congestive heart failure) (HCC); Stage 3b chronic kidney disease (HCC); Thrombocytopenia (HCC); Abnormal TSH; Mixed hyperlipidemia Start: 05-31-2024 End: 05-31-2024 ambulatory DALLAS REED Facility:[facility] Start: 05-24-2024 ambulatory Donato Longoria Facility:[facility] Start: 05-23-2024 End: 05-24-2024 ambulatory Margy Stark Facility:[facility] Start: 05-23-2024 End: 05-23-2024 Office outpatient visit 25 minutes Adrina Warner PA-C Work Phone: [facility] [place] Comment on above: Dizziness (Primary D x); Chronic diastolic CHF (congestive heart failure) (HCC); BENIGN HYPERTENSION; Weight loss; Fatigue, unspecified type; History of anemia Start: 05-23-2024 End: 05-23-2024 Telephone encounter Dallas Reed MD Work Phone: [facility] [place] Comment on above: Future Appointment Start: 04-07-2024 Telephone encounter Dallas casey MD Work Phone: [facility] [place] Comment on above: Consult Start: 03-22-2024 Refill Darya silva APRN.SHUTTLECOCK FEATHER TRIMMER Work Phone: [facility] [place] Comment on above: Refill Request Start: 03-11-2024 End: 03-11-2024 Patient encounter procedure Prema Agee APRN.SHUTTLECOCK FEATHER TRIMMER Work Phone: [facility] Comment on above: Chronic right should er pain (Primary Dx) Start: 03-07-2024 ambulatory Fide Goff RN Am bulatory Care Management Comment on above: Community Monitoring Outreach Start: 03-06-2024 Telephone encounter Dallas casey MD Work Phone: [facility] [place] Comment on above: fax referral to Dr Gilda cervantes Refill Request Start: 02-29-2024 Telephone encounter Dallas casey MD Work Phone: [facility] [place] Comment on above: Results Start: 02-10-2024 Refill Dallas jaramillo MD Work Phone: [facility] [place] Comment on above: Refill Request Start: 02-09-2024 End: 02-09-2024 Subsequent hospital visit by physician [place] [facility] [place] Work Phone: Radiology Comment on above: Acute pain of both s zhang [M25.511, M25.512] Start: 02-09-2024 End: 02-09-2024 Patient encounter procedure Ayla Carrasquillo PA-C Work Phone: [facility] Comment on above: Acute pain [...] End: 01-10-2024 Patient encounter procedure Darya Borden APRN.SHUTTLECOCK FEATHER TRIMMER Work Phone: [facility] [place] Comment on above: Primary hypertension (Primary Dx); [...] encounter status Shaun Kowalski MD Work Phone: [facility] Start: 12-31-2023 Telephone encounter Shaun mendoza MD Work Phone: Vascular Surg Dept Comment on above: Consult Start: 12-27-2023 End: 12-27-2023 ambulatory [facility] Work Phone: Start: 12-27-2023 End: 12-27-2023 Patient encounter procedure [facility]-Cat Scan, [facility] Work Phone: Start: 11-28-2023 ambulatory Fide Goff RN Am bulatory Care Management Comment on above: Community Monitoring Outreach Start: 08-10-2023 End: 08-10-2023 Patient encounter procedure Darya Singh APRN.SHUTTLECOCK FEATHER TRIMMER Work Phone: [facility] [place] Comment on above: Medicare annual well ness visit, subsequent (Primary Dx) Start: 08-03-2023 End: 08-03-[address] Dallas Reed Work Phone: [facility] Work Phone: Start: 08-03-2023 End: 08-03-[address] Dallas Reed Work Phone: [facility] Work Phone: Start: 06-25-2023 Refill Dallas jaramillo MD Work Phone: [facility] [place] Comment on above: Refill Request Start: 06-25-2023 End: 06-25-[address] Dallas Reed Work Phone: [facility] Work Phone: Start: 05-26-2023 End: 05-26-[address] Dallas Reed Work Phone: [facility] Work Phone: Start: 05-26-2023 End: 05-26-[address] Dallas Reed Work Phone: [facility] Work Phone: Start: 05-20-2023 ambulatory Fide Goff RN Am bulatory Care Management Comment on above: Community Monitoring Outreach Start: 04-19-2023 End: 04-19-[address] Dallas Reed Work Phone: [facility] Work Phone: Start: 04-19-2023 End: 04-19-[address] Dallas Reed Work Phone: [facility] Work Phone: Start: 04-16-2023 End: 04-16-2023 Patient encounter procedure Dallas Reed MD Work Phone: [facility] [place] Comment on above: Primary hypertension (Primary Dx); S/P AAA repair Start: 04-08-2023 Non-patient / Non-visit Dr. Ilana Reed Work Phone[place] [facility] Start: 04-07-2023 Non-patient / Non-visit Dr. Ilana Reed Work Phone: [facility] Start: 04-07-2023 End: 04-08-2023 Evaluation and management of inpatient Dr. Dallas Reed Work Phone: [facility] Work Phone: Start: 04-01-2023 End: 04-01-2023 Non-patient / Non-visit Dr. Dallas Reed Work Phone: [facility] Work Phone: Start: 03-05-2023 End: 03-05-[address] Dallas Reed Work Phone: [facility] Work Phone: Start: 03-04-2023 End: 03-04-2023 Patient encounter procedure Dallas Reed MD Work Phone: [facility] [place] Comment on above: Primary hypertension (Primary Dx); Abdominal aortic aneurysm (AAA) without rupture, unspecified part (HCC) Start: 02-25-2023 End: 02-25-[address] Dallas Reed Work Phone: [facility] Work Phone: Start: 02-23-[address] Dallas Reed Work Phone: [facility] Start: 02-23-2023 End: 02-23-[address] Dallas Reed Work Phone: [facility] Work Phone: Start: 02-01-2023 End: 02-01-2023 Office outpatient visit 25 minutes Adrian Warner PA-C Work Phone: [facility] Comment on above: Acute maxillary sinu sitis, recurrence not specified (Primary Dx); Acute otitis media, right Start: 01-19-2023 Telephone encounter Lisa Rodriguez MD Work Phone: [facility] [place] Comment on above: Medication Authoriza tion Start: 01-19-2023 Non-patient / Non-visit Dr. Ilana Reed Work Phone: [facility] Start: 01-19-2023 End: 01-19-[address] Dallas Reed Work Phone: [facility] Work Phone: Start: 01-19-2023 End: 01-19-[address] Dallas Reed Work Phone: [facility]Cardi[facility] Services Start: 01-18-2023 Orders Only Lisa Rodriguez MD Work Phone: [facility] [place] Start: 01-15-2023 End: 01-15-2023 Subsequent hospital visit by physician Lisa Rodriguez MD Work Phone: Ambulatory Surgery Comment on above: Diarrhea, unspecifie d type [R19.7] Start: 01-13-2023 ambulatory Lisa Rodriguez MD Work Phone: Ambulatory Surgery Start: 01-07-2023 End: 01-07-2023 Patient encounter procedure Lisa Rodriguez MD Work Phone: [facility] [place] Comment on above: Diarrhea, unspecifie d type Start: 12-30-2022 End: 12-30-2022 Patient encounter procedure Dallas Reed MD Work Phone: [facility] [place] Comment on above: Diarrhea, unspecifie d type (Primary Dx); Chronic diastolic CHF (congestive heart failure) (HCC); Abdominal aortic aneurysm (AAA) without rupture, unspecified part (HCC) Start: 07-03-2022 End: 07-03-2022 Patient encounter procedure Gavinnoel Rivero ADZ WORKER.SHUTTLECOCK FEATHER TRIMMER Work Phone: [facility] Comment on above: Loose stools (Primar y Dx) Start: 05-26-2022 Refill Dallas jaramillo MD Work Phone: [facility] [place] Comment on above: Refill Request Start: 03-11-2022 Refill Dallas jaramillo MD Work Phone: [facility] [place] Comment on above: Refill Request Start: 02-18-2022 Telephone encounter Elsie Meera wallace ADZ WORKER.SHUTTLECOCK FEATHER TRIMMER Work Phone: [facility] [facility] Comment on above: Results Start: 02-17-2022 End: 02-17-2022 Patient encounter procedure Nona Haider ADZ WORKER.SHUTTLECOCK FEATHER TRIMMER Work Phone: [facility] Comment on above: Cough (Primary Dx); Acute upper respiratory infection, unspecified Start: 02-10-2022 End: 02-10-2022 Nursing evaluation of patient and report Mi Nurse Work Phone: [facility] Comment on above: BENIGN HYPERTENSION (Primary Dx) Start: 02-09-2022 ambulatory Denver Elizalde RN Am [facility] Care Management Comment on above: Community Monitoring Outreach (CHF/ CKD Telephonic Outreach) Start: 02-06-2022 ambulatory Denver Elizalde RN Am [facility] Management Comment on above: Community Monitoring Outreach (CHF/ CKD CDM Outreach) Start: 01-13-2022 End: 01-13-2022 Patient encounter procedure Dallas Reed MD Work Phone: [facility] [place] Comment on above: Stage 3a chronic kid james disease (HCC) (Primary Dx); Chronic diastolic CHF (congestive heart failure) (HCC); Abdominal aortic aneurysm (AAA) without rupture (HCC); BENIGN HYPERTENSION; Other hyperlipidemia Start: 01-12-2022 Non-patient / Non-visit Dr. Ilana Reed Work Phone: [facility] Start: 01-12-2022 End: 01-12-[address] Dallas Reed Work Phone: [facility] Start: 12-08-2021 ambulatory Denver Elizalde RN Am [facility] Care Management Comment on above: Community Monitoring Outreach (CHF / CKD CDM Outreach ) Start: 11-12-2021 End: 11-12-[address] Dallas Reed Work Phone: [facility] [facility] Start: 07-19-2019 End: 07-19-2019 Subsequent hospital visit by physician Yariel Blas Work Phone: [facility] General Surgery Comment on above: Pain in right hip Start: 03-10-2018 Ambulatory [facility] Facility :[facility] Start: 01-14-2018 End: 01-14-2018 Ambulatory [facility] Facility:[facility] Start: 01-08-[address] Dallas Reed Work Phone: [facility] Start: 09-09-2017 End: 09-09-2017 Ambulatory [facility] Facility:[facility] Start: 01-09-2015 End: 03-15-2018 Patient encounter status Darya Borden APRN.CNP Work Phone: [facility] Procedures Date Procedure Procedure Detail Performing Clinician [...] Comment: Speci men Type: BLOOD SPECIMENOrdering Facility: [facility] Address: [address] [place] [address] Performed By: #### T SCR ####CC MAIN BLOOD BANKCLIA [id number] [facility] [id number] [address] [place] Start: 11-28-2024 Urnls dip stick/tabl et reagent auto microscopy Dr. Dallas Reed MD Work Phone: Start: 11-28-2024 Computed tomography of abdomen and pelvis with intravenous contrast Dr. Dallas Reed MD Work Phone: Start: 11-28-[address] Dallas Reed MD Work Phone: Start: 11-28-2024 Ct abdomen & pelvis w/contrast material Darya Borden ADZ WORKER.SHUTTLECOCK FEATHER TRIMMER Work Phone: Start: 11-27-2024 Urnls dip stick/tabl et rgnt auto w/o microscopy Darya Borden ADZ WORKER.SHUTTLECOCK FEATHER TRIMMER Work Phone: Start: 09-07-2024 Adult depression screening assessment Darya Borden APRN.SHUTTLECOCK FEATHER TRIMMER Work Phone: Start: 02-09-2024 Radex shoulder compl [...] Author Start: 03-16-2028 Diabetes Screening Diabetes Screening [facility] Start: 12-02-2027 Diabetes Screening Diabetes Screening [facility] Start: 11-30-2027 Diabetes Screening Diabetes Screening [facility] Start: 11-29-2027 Diabetes Screening Diabetes Screening [facility] Start: 11-28-2027 Diabetes Screening Diabetes Screening [facility] Start: 08-04-2027 Diabetes Screening Diabetes Screening [facility] Start: 05-31-2027 Diabetes Screening Diabetes Screening [facility] Start: 08-30-2026 Diabetes Screening Diabetes Screening [facility] Start: 03-16-2026 Creatinine measurement Creatinine Level [facility] Start: 03-16-2026 Potassium measurement Potassium Level [facility] Start: 03-12-2026 Thyroid stimulating hormone measurement TSH Level [facility] Start: 02-04-2026 DIABETES SCREEN DIABETES SCREEN [facility] Start: 02-04-2026 Diabetes Screening Diabetes Screening [facility] Start: 09-12-2025 End: 09-12-2025 Patient encounter procedure 09/12/2025 8:40 AM EST Office Visit [facility] [place] [address] [place] [address] Dallas Reed MD [address] [place] [address] medicare wellness 6 months [facility] [place] Comment on above: medicare wellness 6 months Start: 09-07-2025 Anxiety Screening Anxiety Screening [facility] Start: 09-07-2025 Depression Screening Depression Screening [facility] Start: 09-07-2025 Medicare Annual Wellness Visit Medicare Annual Wellness Visit [facility] Start: 09-07-2025 RSV Vaccine (1 - 1-dose 75+ series) RSV Vaccine (1 - 1-dose 75+ series) [facility] Comment on above: Postponed from 01/03/2015 (Declined at t his time) Start: 09-07-2025 Shingrix Vaccine (2 of 3) Shingrix Vaccine (2 of 3) [facility] Comment on above: Postponed from 10/13/2014 (Declined at t his time) Start: 09-07-2025 Urine microalbumin profile DTaP,Tdap,Td Vaccine (1 - Tdap) [facility] Comment on above: Postponed from 07/08/2005 (Declined at t his time) Start: 08-20-2025 End: 03-19-2026 CT Abdomen and Pelvis W contrast IV CTA abdomen pelvis angiogram w and/or wo IV contrast 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 Expected: 08/20/2025, Expires: 03/19/2026 [facility] Work Phone: Comment on above: Expected: 08/20/2025, Expires: Start: 07-17-2025 Covid-19 Vaccine () Covid-19 Vaccine () [facility] Comment on above: Postponed from 05/21/2024 (Declined at t his time) Start: 07-17-2025 DIABETES SCREEN DIABETES SCREEN [facility] Start: 06-11-2025 End: 06-11-2025 Patient encounter procedure 06/11/2025 8:40 AM EDT Office Visit [facility] [place] [address] [place] [address] Darya Borden, ADZ WORKER.SHUTTLECOCK FEATHER TRIMMER [address] [place] [address] follow up 4 weeks [facility] [place] Comment on above: follow up 4 weeks Start: 05-21-2025 Influenza vaccination [facility] Start: 05-18-2025 End: 08-17-2025 Cobalamin (Vitamin B12) [Mass/volume] in Serum or Plasma [facility] Comment on above: Expected: 05/18/2025, Expires: Start: 05-18-2025 End: 08-17-2025 Ferritin [Mass/volume] in Serum or Plasma [facility] Comment on above: Expected: 05/18/2025, Expires: Start: 05-18-2025 End: 08-17-2025 Folate [Mass/volume] in Serum or Plasma [facility] Comment on above: Expected: 05/18/2025, Expires: Start: 05-18-2025 End: 08-17-2025 Iron and Iron binding capacity panel - Serum or Plasma [facility] Comment on above: Expected: 05/18/2025, Expires: Start: 05-18-2025 End: 08-17-2025 Thyrotropin [Units/volume] in Serum or Plasma [facility] Work Phone: Comment on above: Expected: 05/18/2025, Expires: Start: 03-19-2025 Influenza vaccination Influenza Vaccine (#1) [facility] Comment on above: Postponed from 05/21/2024 (Declined at t his time) Start: 03-16-2025 End: 03-16-2025 Patient encounter procedure 03/16/2025 11:00 AM EDT Appointment [facility] [address] [place] [id number] [facility] Start: 03-12-2025 End: 06-11-2025 Thyrotropin [Units/volume] in Serum or Plasma [facility] Work Phone: Comment on above: Expected: 03/12/2025, Expires: Start: 03-12-2025 End: 06-11-2025 Thyroxine (T4) free [Mass/volume] in Serum or Plasma [facility] Comment on above: Expected: 03/12/2025, Expires: Start: 03-12-2025 End: 03-12-2025 Patient encounter procedure 03/12/2025 8:40 AM EDT Office Visit [facility] [place] [address] [place] [address] Darya Borden, ADZ WORKER.SHUTTLECOCK FEATHER TRIMMER [address] [place] [address] follow up 6 months [facility] [place] Comment on above: follow up 6 months Start: 03-01-2025 End: 03-01-2026 Guidance for embolization of Vessels IR Embolization 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 Expected: 03/01/2025, Expires: 03/01/2026 [facility] Work Phone: Comment on above: Expected: 03/01/2025, Expires: Start: 02-14-2025 Elevation of head of bed [facility] Start: 02-14-2025 Patient education [facility] Start: 02-14-2025 End: 02-14-2025 Taking patient vital signs [facility] Start: 02-14-2025 Wound care [facility] Start: 02-14-2025 End: 02-14-2025 [facility] Start: 02-14-2025 Bedrest [facility] Start: 02-14-2025 End: 02-14-2025 Notification of physician [facility] Start: 02-14-2025 Patient discharge [facility] Start: 02-14-2025 Provision of activity privileges [facility] Start: 02-14-2025 End: 02-14-2025 Pulse taking [facility] Start: 01-13-2025 DIABETES SCREEN DIABETES SCREEN [facility] Start: 01-12-2025 [facility] Start: 12-22-2024 End: 12-22-2024 ambulatory 12/22/2024 9:15 AM EDT OT/PT/Speech Visit [facility] [address] [place] [address] Ramon Lee, PT [address] [facility] [place] [address] S00.03XD (ICD-10-CM) - Contusion of scalp, subsequent encounter [facility] Comment on above: S00.03XD (ICD-10-CM) - Contusion of scal p, subsequent encounter Start: 12-19-2024 End: 12-19-2024 ambulatory 12/19/2024 9:15 AM EDT OT/PT/Speech Visit [facility] [address] [place] [address] Ramon Lee, PT [address] [facility] [address] S00.03XD (ICD-10-CM) - Contusion of scalp, subsequent encounter [facility] Comment on above: S00.03XD (ICD-10-CM) - Contusion of scal p, subsequent encounter Start: 12-15-2024 End: 12-15-2024 ambulatory 12/15/2024 9:15 AM EDT OT/PT/Speech Visit [facility] [address] [place] [address] Ramon Lee, PT [address] [place] [address] S00.03XD (ICD-10-CM) - Contusion of scalp, subsequent encounter [facility] Comment on above: S00.03XD (ICD-10-CM) - Contusion of scal p, subsequent encounter Start: 12-12-2024 End: 12-12-2024 ambulatory 12/12/2024 9:15 AM EDT OT/PT/Speech Visit [facility] [address] [place] [address] Ramon Lee, PT [address] [place] [address] S00.03XD (ICD-10-CM) - Contusion of scalp, subsequent encounter [facility] Comment on above: S00.03XD (ICD-10-CM) - Contusion of scal p, subsequent encounter Start: 12-08-2024 End: 12-08-2024 Patient encounter procedure 12/08/2024 11:40 AM EDT Office Visit [facility] [place] [address] [place] [address] Dallas Reed MD [address] [place] [address] hospital discharge follow up. needs to see PCP or WEN in 7 days. [facility] [place] Comment on above: hospital discharge follow up. needs to s ee PCP or WEN in 7 days. Start: 12-08-2024 End: 12-08-2024 ambulatory 12/08/2024 9:15 AM EDT OT/PT/Speech Visit [facility] [address] [place] [address] Ramon Lee, PT [address] [place] [address] S00.03XD (ICD-10-CM) - Contusion of scalp, subsequent encounter [facility] Comment on above: S00.03XD (ICD-10-CM) - Contusion of scal p, subsequent encounter Start: 12-07-2024 End: 03-08-2025 Thyrotropin [Units/volume] in Serum or Plasma THYROID STIMULATING HORMONE Lab Routine Subclinical hypothyroidism Expected: 12/07/2024 (Approximate), Expires: 03/08/2025 [facility] Work Phone: Comment on above: Expected: 12/07/2024 (Approximate), Expi res: 03/08/2025 Start: 12-06-2024 End: 12-06-2024 ambulatory 12/06/2024 9:15 AM EDT OT/PT/Speech Visit [facility] [address] [facility] [facility], [place] [id number] Ramon Lee, PT [address] [place], [place] [id number] S00.03XD (ICD-10-CM) - Contusion of scalp, subsequent encounter [facility] Comment on above: S00.03XD (ICD-10-CM) - Contusion of scal p, subsequent encounter Start: 11-29-2024 End: 11-29-2024 ambulatory 11/29/2024 7:45 AM EDT OT/PT/Speech Visit [facility] [address] [facility], [place] [id number] Ramon Lee, PT [address] [place], [place] [id number] S00.03XD (ICD-10-CM) - Contusion of scalp, subsequent encounter [facility] Comment on above: S00.03XD (ICD-10-CM) - Contusion of scal p, subsequent encounter Start: 11-28-2024 [facility] Start: 11-28-2024 End: 11-28-2024 Patient encounter procedure Cat Scan Comment on above: LLQ abdominal pain [R10.32] Start: 11-24-2024 End: 11-24-2024 ambulatory 11/24/2024 7:45 AM EST OT/PT/Speech Visit [facility] [address] [facility], [place] [id number] Ramon Lee, PT [address] [place] [address] S00.03XD (ICD-10-CM) - Contusion of scalp, subsequent encounter [facility] Comment on above: S00.03XD (ICD-10-CM) - Contusion of scal p, subsequent encounter Start: 11-21-2024 End: 11-21-2024 ambulatory 11/21/2024 10:45 AM EST OT/PT/Speech Visit [facility] [address] [place] [address] Ramon Lee, PT [address] [place] [address] x: Contusion of scalp, subsequent encounter [S00.03XD]; Fall, subsequent encounter [W19.XXXD]; Proximal leg weakness [R29.898] [facility] Comment on above: x: Contusion of scalp, subsequent encoun ter [S00.03XD]; Fall, subsequent encounter [W19.XXXD]; Proximal leg weakness [R29.898] Start: 11-09-2024 End: 11-09-2024 Patient encounter procedure 11/09/2024 2:00 PM EST Office Visit [facility] [place] [address] [place] [address] Dallas Reed MD [address] [place] [address] express care follow up-hit head [facility] [place] Comment on above: express care follow up-hit head Start: 09-20-2024 Advance Directive Discussion Advance Directive Discussion [facility] Start: 09-07-2024 End: 12-07-2024 Thyroxine (T4) free [Mass/volume] in Serum or Plasma [facility] Work Phone: Comment on above: Expected: 09/07/2024, Expires: Start: 09-07-2024 End: 12-07-2024 Triiodothyronine (T3) [Mass/volume] in Serum or Plasma [facility] Comment on above: Expected: 09/07/2024, Expires: Start: 09-07-2024 End: 09-07-2024 Patient encounter procedure 09/07/2024 10:00 AM EST Office Visit [facility] [place] [address] [facility] [address] Darya Borden, ADZ WORKER.SHUTTLE[employer] FEATHER TRIMMER [address] [place] [address] Medicare Wellness ; routine follow up [facility] [place] Comment on above: Medicare Wellness ; routine follow up Start: 08-31-2024 [facility] Start: 08-31-2024 Anesthesia hernia repair upper abdomen nos ANES HRNA RPR UPR ABD NOS [facility] Start: 08-31-2024 RPR AA HRN 1ST < 3 CM RDC RPR AA HRN 1ST < 3 CM RDC [facility] Start: 08-31-2024 Patient discharge [facility] Start: 08-14-2024 End: 08-14-2024 Patient encounter procedure 08/14/2024 12:00 PM EST Office Visit [facility] [place] [address] [place] [address] Dallas Reed MD [address] [place] [address] Medicare Wellness ; routine follow up [facility] [place] Comment on above: Medicare Wellness ; routine follow up Start: 08-10-2024 Covid-19 Vaccine (#1) Covid-19 Vaccine (#1) [facility] Comment on above: Postponed from 1940 (Declined at t his time) Start: 08-10-2024 Covid-19 Vaccine () Covid-19 Vaccine () [facility] Comment on above: Postponed from 05/21/2023 (Declined at t his time) Start: 08-10-2024 RSV Vaccine (1 - 1-dose 60+ series) RSV Vaccine (1 - 1-dose 60+ series) [facility] Comment on above: Postponed from 2000 (Declined at t his time) Start: 08-10-2024 RSV Vaccine (1 - 1-dose 75+ series) RSV Vaccine (1 - 1-dose 75+ series) [facility] Comment on above: Postponed from 01/03/2015 (Declined at t his time) Start: 08-10-2024 Shingrix Vaccine (2 of 3) Shingrix Vaccine (2 of 3) [facility] Comment on above: Postponed from 10/13/2014 (Declined at t his time) Start: 08-10-2024 Urine microalbumin profile DTaP,Tdap,Td Vaccine (1 - Tdap) [facility] Comment on above: Postponed from 07/08/2005 (Declined at t his time) Start: 07-19-2024 End: 10-18-2024 CBC panel - Blood by Automated count COMPLETE BLOOD COUNT Lab Routine Thrombocytopenia (HCC) Expected: 07/19/2024, Expires: 10/18/2024 [facility] Work Phone: Comment on above: Expected: 07/19/2024, Expires: Start: 07-19-2024 End: 10-18-2024 Comprehensive metabolic 2000 panel - Serum or Plasma COMPREHENSIVE METABOLIC PANEL Lab Routine Stage 3b chronic kidney disease (HCC) Expected: 07/19/2024, Expires: 10/18/2024 [facility] Comment on above: Expected: 07/19/2024, Expires: Start: 07-19-2024 End: 10-18-2024 Lipid 1996 panel - Serum or Plasma LIPID PANEL BASIC Lab Routine Mixed hyperlipidemia Expected: 07/19/2024, Expires: 10/18/2024 [facility] Comment on above: Expected: 07/19/2024, Expires: Start: 07-19-2024 End: 10-18-2024 Thyrotropin [Units/volume] in Serum or Plasma THYROID STIMULATING HORMONE Lab Routine Abnormal TSH Mixed hyperlipidemia Expected: 07/19/2024, Expires: 10/18/2024 [facility] Comment on above: Expected: 07/19/2024, Expires: Start: 07-19-2024 End: 07-19-2024 ambulatory 07/19/2024 7:30 AM EDT Results Only [facility] Draw Station [address] [place] [address] [facility] Draw Station Start: 07-02-2024 DIABETES SCREEN DIABETES SCREEN [facility] Start: 05-23-2024 End: 08-22-2024 CBC W Auto Differential panel - Blood COMPLETE BLOOD COUNT AND DIFFERENTIAL Lab Routine BENIGN HYPERTENSION Weight loss Fatigue, unspecified type Expected: 05/23/2024, Expires: 08/22/2024 [facility] Work Phone: Comment on above: Expected: 05/23/2024, Expires: Start: 05-23-2024 End: 08-22-2024 Cobalamin (Vitamin B12) [Mass/volume] in Serum or Plasma VITAMIN B12 Lab Routine BENIGN HYPERTENSION Weight loss Fatigue, unspecified type History of anemia Expected: 05/23/2024, Expires: 08/22/2024 [facility] Comment on above: Expected: 05/23/2024, Expires: Start: 05-23-2024 End: 08-22-2024 Comprehensive metabolic 2000 panel - Serum or Plasma COMPREHENSIVE METABOLIC PANEL Lab Routine BENIGN HYPERTENSION Weight loss Fatigue, unspecified type Expected: 05/23/2024, Expires: 08/22/2024 [facility] Comment on above: Expected: 05/23/2024, Expires: Start: 05-23-2024 End: 08-22-2024 Ferritin [Mass/volume] in Serum or Plasma FERRITIN Lab Routine BENIGN HYPERTENSION Weight loss Fatigue, unspecified type History of anemia Expected: 05/23/2024, Expires: 08/22/2024 [facility] Comment on above: Expected: 05/23/2024, Expires: Start: 05-23-2024 End: 08-22-2024 Iron and Iron binding capacity panel - Serum or Plasma IRON AND TIBC Lab Routine BENIGN HYPERTENSION Weight loss Fatigue, unspecified type History of anemia Expected: 05/23/2024, Expires: 08/22/2024 [facility] Comment on above: Expected: 05/23/2024, Expires: Start: 05-23-2024 End: 08-22-2024 Thyrotropin [Units/volume] in Serum or Plasma THYROID STIMULATING HORMONE Lab Routine BENIGN HYPERTENSION Fatigue, unspecified type Expected: 05/23/2024, Expires: 08/22/2024 [facility] Comment on above: Expected: 05/23/2024, Expires: Start: 05-23-2024 End: 08-22-2024 Urinalysis complete panel - Urine URINALYSIS, WITH MICROSCOPIC Lab Routine Weight loss Fatigue, unspecified type Expected: 05/23/2024, Expires: 08/22/2024 [facility] Comment on above: Expected: 05/23/2024, Expires: Start: 05-21-2024 Covid-19 Vaccine ( season) Covid-19 Vaccine () [facility] Start: 05-21-2024 Covid-19 Vaccine () Covid-19 Vaccine () [facility] Start: 05-21-2024 Influenza vaccination [facility] Start: 05-15-2024 End: 05-15-2024 Patient encounter procedure 05/15/2024 11:00 AM EDT Office Visit Orthopaedics [address] [place] [address] Izzy Guadalupe PA-C [address] [place] [address] Acute pain of both shoulders [M25.511, M25.512] Orthopa[facility]ics Comment on above: Acute pain of both shoulders [M25.511, M 25.512] Start: 01-17-2024 End: 01-17-2024 Patient encounter procedure [facility] Comment on above: Endoleak aortic graft Start: 12-27-2023 Following clinical pathway protocol [facility] Start: 10-16-2023 Influenza vaccination [facility] Comment on above: Postponed from 05/21/2023 (Declined at t his time) Start: 09-20-2023 Advance Directive Discussion Advance Directive Discussion [facility] Start: 09-20-2023 Behavioral Health Screening Behavioral Health Screening [facility] Start: 09-20-2023 Depression Assessment Depression Assessment [facility] Start: 07-15-2023 COVID-19 VACCINE (#1) COVID-19 VACCINE (#1) [facility] Comment on above: Postponed from 1940 (Declined at t his time) Start: 07-15-2023 SHINGRIX VACCINE (2 of 3) SHINGRIX VACCINE (2 of 3) [facility] Comment on above: Postponed from 10/13/2014 (Declined at t his time) Start: 07-15-2023 Urine microalbumin profile [facility] Comment on above: Postponed from 07/08/2005 (Declined at t his time) Start: 05-26-2023 Following clinical pathway protocol [facility] Start: 05-21-2023 Influenza vaccination [facility] Start: 04-08-2023 Patient discharge [facility] Start: 04-08-2023 Urinary bladder residual urine study [facility] Start: 04-08-2023 [facility] Start: 04-08-2023 Removal of urinary catheter [facility] Start: 04-07-2023 Oxygen therapy [facility] Start: 04-07-2023 Following clinical pathway protocol [facility] Start: 04-07-2023 End: 04-07-2023 Bedrest [facility] Start: 04-07-2023 Elevation of head of bed [facility] Start: 04-07-2023 Incentive spirometry [facility] Start: 04-07-2023 Insertion of catheter into artery [facility] Start: 04-07-2023 Measuring intake and output [facility] Start: 04-07-2023 Neurovascular assessment [facility] Start: 04-07-2023 Nil by mouth [facility] Start: 04-07-2023 Notification of physician [facility] Start: 04-07-2023 Patient education [facility] Start: 04-07-2023 Tobacco use cessation education [facility] Start: 04-07-2023 Vital signs measurements [facility] Start: 04-07-2023 [facility] Start: 04-07-2023 [facility] Start: 04-07-2023 Admission procedure [facility] Start: 09-20-2022 ADVANCE DIRECTIVE DISCUSSION ADVANCE DIRECTIVE DISCUSSION [facility] Start: 09-20-2022 DEPRESSION ASSESSMENT DEPRESSION ASSESSMENT [facility] Start: 07-15-2022 End: 09-14-2022 CBC panel - Blood by Automated count CBC Lab Routine Stage 3a chronic kidney disease (HCC) Expected: 07/15/2022, Expires: 09/14/2022 [facility] Work Phone: Comment on above: Expected: 07/15/2022, Expires: 2 Start: 07-15-2022 End: 09-14-2022 Comprehensive metabolic 2000 panel - Serum or Plasma COMP METABOLIC PANEL Lab Routine Chronic diastolic CHF (congestive heart failure) (HCC) Expected: 07/15/2022, Expires: 09/14/2022 [facility] Work Phone: Comment on above: Expected: 07/15/2022, Expires: 2 Start: 07-15-2022 End: 09-14-2022 LIPID PANEL BASIC LIPID PANEL BASIC Lab Routine Other hyperlipidemia Expected: 07/15/2022, Expires: 09/14/2022 [facility] Work Phone: Comment on above: Expected: 07/15/2022, Expires: 2 Start: 07-09-2022 COVID-19 VACCINE (#1) COVID-19 VACCINE (#1) [facility] Comment on above: Postponed from 01/03/1945 (Declined at t his time) Postponed from 07/05 (Declined at this time) Start: 07-09-2022 COVID-19 VACCINE (1) COVID-19 VACCINE (1) [facility] Comment on above: Postponed from 01/03/1945 (Declined at t his time) Start: 07-09-2022 SHINGRIX VACCINE (2 of 3) SHINGRIX VACCINE (2 of 3) [facility] Comment on above: Postponed from 10/13/2014 (Declined at t his time) Start: 07-09-2022 Urine microalbumin profile DTAP,TDAP,TD (1 - Tdap) [facility] Comment on above: Postponed from 07/08/2005 (Declined at t his time) Start: 05-21-2022 Influenza vaccination [facility] Start: 03-19-2022 Influenza vaccination INFLUENZA (#1) [facility] Comment on above: Postponed from 05/21/2021 (Declined at t his time) Start: 02-17-2022 End: 03-03-2022 Influenza virus A and B RNA and SARS-CoV-2 (COVID-19) N gene panel - Respiratory specimen by ELIZABETH with probe detection COVID WITH FLUA+B, ROUTINE Microbiology Routine Cough Acute upper respiratory infection, unspecified Expected: 02/17/2022, Expires: 03/03/2022 [facility] Work Phone: Comment on above: Expected: 02/17/2022, Expires: 2 Start: 01-13-2022 End: 03-15-2022 Basic metabolic 2000 panel - Serum or Plasma [facility] Work Phone: Comment on above: Expected: 01/13/2022, Expires: 2 Start: 09-20-2021 ADVANCE DIRECTIVE DISCUSSION ADVANCE DIRECTIVE DISCUSSION [facility] Start: 09-20-2021 DEPRESSION ASSESSMENT DEPRESSION ASSESSMENT [facility] Start: 07-19-2020 Creatinine measurement Creatinine Level [facility] Start: 07-19-2020 Potassium measurement Potassium Level [facility] Start: 07-04-2019 Annual Wellness Visit (AWV) Annual Wellness Visit (AWV) [place], [place] Start: 05-21-2019 Influenza vaccination Flu vaccine (#1) [place], [place] Start: 01-03-2015 RSV Immunization for Adults (1 - 1-dose 75+ series) RSV Immunization for Adults (1 - 1-dose 75+ series) [facility] Start: 01-03-2015 RSV Vaccine (1 - 1-dose 75+ series) RSV Vaccine (1 - 1-dose 75+ series) [facility] Start: 10-13-2014 Shingles Vaccine (2 of 3) Shingles Vaccine (2 of 3) [place] Start: 10-13-2014 Shingrix Vaccine (2 of 3) Shingrix Vaccine (2 of 3) [facility] Start: 10-13-2014 Zoster Vaccines (2 of 3) Zoster Vaccines (2 of 3) [facility] Start: 07-08-2005 DTaP/Tdap/Td Vaccines (1 - Tdap) DTaP/Tdap/Td Vaccines (1 - Tdap) [facility] Start: 07-08-2005 Urine microalbumin profile DTaP,Tdap,Td Vaccine (1 - Tdap) [facility] Start: 01-03-1959 DTaP/Tdap/Td vaccine (1 - Tdap) DTaP/Tdap/Td vaccine (1 - [facility]ap) [facility] Start: 01-03-1958 Anxiety Screening Anxiety Screening [facility] Start: 01-03-1958 Depression Screening Depression Screening [facility] Start: 1952 Depression Screening Depression Screening [facility] Start: 1940 Creatinine monitoring Creatinine monitoring [facility] Start: 1940 Echocardiography Echocardiogram [facility] Start: 1940 Lipid panel Lipid Panel [facility] Start: 1940 Medicare Annual Wellness (AWV) Medicare Annual Wellness (AWV) [facility] Start: 1940 Potassium monitoring [facility] End: 07-19-2019 Anaerobic Culture Anaerobic Culture Microbiology Routine Once for 1 Occurrences starting 07/19/2019 until 07/19/2019 [facility] Comment on above: Once for 1 Occurrences starting 07/19/20 until 07/19/2019 Anaerobic Culture Anaerobic Cult ure Microbiology Routine 07/19/2019 9:00 AM EDT [facility] B[facility] identified in Urine by Culture BACTERIAL CULTURE, URINE Microbiology Routine Left lower quadrant abdominal pain 11/27/2024 11:46 AM EDT [facility] Basic metabolic 2008 panel with ionized calcium - Serum or Plasma [facility] Blood chemistry [facility] End: 07-19-2019 Body Fluid Culture Body Fluid Culture Microbiology Routine Once for 1 Occurrences starting 07/19/2019 until 07/19/2019 [facility] Comment on above: Once for 1 Occurrences starting 07/19/20 until 07/19/2019 Body Fluid Culture Body Fluid Cu lture Microbiology Routine 07/19/2019 9:00 AM EDT [facility] Calprotectin [Mass/m ass] in Stool CALPROTECTIN,FECAL Lab Routine Diarrhea, unspecified type Ordered: 12/30/2022 [facility] Work Phone: Comment on above: Ordered: 12/30/2022 Clostridioides diffi cile toxin genes [Presence] in Stool by ELIZABETH with probe detection C. DIFFICILE PCR Lab Routine Loose stools Ordered: 07/03/2022 [facility] Work Phone: Comment on above: Ordered: 07/03/2022 Clostridioides diffi cile toxin genes [Presence] in Stool by ELIZABETH with probe detection C. DIFFICILE PCR Lab Routine Diarrhea, unspecified type Ordered: 12/30/2022 [facility] Work Phone: Comment on above: Ordered: 12/30/2022 End: 01-08-2024 COLONOSCOPY DIAGNOSTIC COLONOSCOPY DIAGNOSTIC Endoscopy Routine Diarrhea, unspecified type 1 Occurrences starting 01/07/2023 until 01/08/2024 [facility] Work Phone: Comment on above: 1 Occurrences starting 01/07/2023 until 01/08/2024 CT Abdomen and Pelvis [facility] CT Abdomen [facility]vis [facility] End: 12-27-2025 CT Abdomen and Pelvis W contrast IV CT ABD/PEL W IVCON Radiology STAT Left lower quadrant abdominal pain 1 Occurrences starting 11/27/2024 until 12/27/2025 [facility] Work Phone: Comment on above: 1 Occurrences starting 11/27/2024 until 12/27/2025 End: 02-03-2025 CTA Abdominal vessels and Pelvis vessels WO and W contrast IV CTA ABD/PEL WO/W IVCON Radiology Routine Encounter for other preprocedural examination 1 Occurrences starting 01/05/2024 until 02/03/2025 [facility] Work Phone: Comment on above: 1 Occurrences starting 01/05/2024 until 02/03/2025 End: 02-03-2025 CTA Chest vessels WO and W contrast IV CTA CHEST (NONGATED) WO/W IVCON Radiology Routine Encounter for other preprocedural examination 1 Occurrences starting 01/05/2024 until 02/03/2025 [facility] Work Phone: Comment on above: 1 Occurrences starting 01/05/2024 until 02/03/2025 End: 07-19-2019 EKG 12 Lead EKG 12 Lead ECG STAT One Time for 1 Occurrences starting 07/19/2019 until 07/19/2019 [facility], [place] Comment on above: One Time for 1 Occurrences starting 06/22 until 07/19/2019 ENTERIC BACTERIAL PA SKYE BY PCR ENTERIC BACTERIAL PANEL BY PCR Lab Routine Loose stools Ordered: 07/03/2022 [facility] Work Phone: Comment on above: Ordered: 07/03/2022 FECAL LACTOFERRIN/LEUKOCYTES FECAL LACTOFERRIN/LEUKOCYTES Lab Routine Diarrhea, unspecified type Ordered: 12/30/2022 [facility] Work Phone: Comment on above: Ordered: 12/30/2022 Glomerular filtratio n rate/1.73 sq M.predicted [Volume Rate/Area] in Serum, Plasma or Blood by Creatinine-based formula (CKD-EPI) [facility] End: 03-16-2025 Guidance for embolization of Vessels [facility] Work Phone: Comment on above: Once for 1 Occurrences starting 03/16/20 25 until 03/16/2025 Hemoglobin.gastroint estin al.lower [Presence] in Stool by Immunoassay IMMUNOCHEMICAL FECAL OCCULT BLOOD TEST Lab Routine BENIGN HYPERTENSION Weight loss Fatigue, unspecified type Ordered: 05/23/2024 [facility] Comment on above: Ordered: 05/23/2024 Magnesium measurement [facility] Natriuretic peptide. B prohormone N-Terminal [Mass/volume] in Serum or Plasma [facility] Ova and parasites identified in Unspecified specimen by Light microscopy OVA + PARA MICROSCOPIC Microbiology Routine Loose stools Ordered: 07/03/2022 [facility] Work Phone: Comment on above: Ordered: 07/03/2022 Patient Education ED Diverticulitis [facility] Work Phone: Patient referral [facility] Work Phone: [facility] Immunizations Immunization Date Immunization Notes Care Provider Orlando valenzuela 07-13-2020 influenza (HD-IIV4) vaccine, age 65+ yr, high dose, quadrivalent, PF (FLUZONE HIGH-DOSE) 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 Work Phone: [facility] 07-13-2020 influenza, high dose seasonal, preservative-free Goffglendy Elizalde RN [facility] 07-13-2020 influenza virus vacc ine, unspecified formulation Dallas Reed MD Work Phone: [facility] 07-21-2019 influenza, high dose seasonal, preservative-free Goff Fide RN [facility] Work Phone: 08-10-2018 influenza, high dose seasonal, preservative-free Goff Fide RN [facility] Work Phone: 02-10-2018 pneumococcal conjuga te vaccine, 13 valent Goffglendy Elizalde RN [facility] Work Phone: 07-30-2017 influenza, high dose seasonal, preservative-free Goffglendy Mathewa RN [facility] 07-21-2016 influenza, high dose seasonal, preservative-free Goff Fide RN [facility] 08-20-2015 influenza, high dose seasonal, preservative-free Goff Fide RN [facility] Work Phone: 08-20-2015 influenza, injectabl e, quadrivalent, preservative free Dr. Dallas Reed Work Phone: [facility] 08-20-2015 influenza, seasonal, injectable Dr. 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 Phone: [facility] 08-18-2014 zoster vaccine, live Denver Elizalde RN [facility] Work Phone: 07-10-2014 influenza, high dose seasonal, preservative-free Goff Fide RN [facility] Work Phone: 07-10-2014 influenza, seasonal, injectable Goffglendy Elizalde RN [facility] Work Phone: 07-10-2014 pneumococcal polysaccharide vaccine, 23 valent Denver Elizalde RN [facility] Work Phone: 07-15-2010 influenza virus vacc ine, whole virus Denver Elizalde RN [facility] Work Phone: 09-18-2009 novel influenza-H1N1 -09, preservative-free, injectable Denver Elizalde RN [facility] Work Phone: 08-07-2009 influenza virus vacc ine, unspecified formulation Denver Elizalde RN [facility] 08-04-2007 influenza virus vacc ine, unspecified formulation Denver Elizalde RN [facility] Work Phone: 07-26-2006 influenza virus vacc ine, unspecified formulation Denver Elizalde RN [facility] 07-07-2005 tetanus and diphther ia toxoids, adsorbed, preservative free, for adult use (2 Lf of tetanus toxoid and 2 Lf of diphtheria toxoid) Denver Elizalde RN [facility] Work Phone: 06-20-2004 pneumococcal polysaccharide vaccine, 23 valent Denver Elizalde RN [facility] Payers Date Payer Category Payer Unknown [id number] 2024 Medicare [id number] 2024 Self-pay [id number] 2018 Medicare [id number] 2017 Commercial Managed C are - HMO MMO SUPERMED ACCESS [id number] 2012 Private Health Insurance [id number] 2012 Unknown [employer] [id number] 2012-Present [address] [place] [address] Indemnity [id number] 2012 Unknown [id number] .[id number] 2012 Unknown [id number] 2004 Medicare MEDICARE MEDICAR E A AND B [id number] 2004-Present [phone] [address] [address] [place] [address] Medicare [id number] 2004 Medicare [id number] .[id number] 2004 Medicare [id number] Medicare [id number] Unknown [id number] .462 Unknown [id number] 2.16.840.1.883292.3.579.2 .462 Unknown [id number] 2.16.840.1.300578.3.579.2 .462 Unknown [id number] 2.16.840.1.881923.3.579.2 .462 Unknown [id number] 2.16.840.1.862683.3.579.2 .462 Unknown [id number] 2.16.840.1.442028.3.579.2 .462 Unknown [id number] 2.16.840.1.675013.3.579.2 .462 Unknown [id number] 2.16.840.1.483598.3.579.2 .462 Unknown [id number] 2.16.840.1.433366.3.579.2 .462 Unknown [id number] 2.16.840.1.705758.3.579.2 .462 Unknown [id number] 2.16.840.1.023500.3.579.2 .462 Unknown [id number] 2.16.840.1.626337.3.579.2 .462 Unknown [id number] 2.16.840.1.885091.3.579.2 .462 Unknown [id number] 2.16.840.1.843847.3.579.2 .462 Unknown [id number] 2.16.840.1.842446.3.579.2 .462 Unknown [id number] 2.16.840.1.668922.3.579.2 .462 Unknown [id number] 2.16.840.1.161100.3.579.2 .462 Unknown [id number] 2.16.840.1.142351.3.579.2 .462 Unknown [id number] 2.16.840.1.178378.3.579.2 .462 Unknown [id number] 2.16.840.1.917700.3.579.2 .462 Unknown [id number] 2.16.840.1.933847.3.579.2 .462 Unknown [id number] 2.16.840.1.238269.3.579.2 .462 Social History Date Type Detail Facility Start: 07-19-2019 End: 05-23-2024 Tobacco smoking status [facility] Former smoker [facility] Work Phone: Start: 07-19-2019 End: 02-04-2023 Alcohol intake Not Currently [facility] Start: 1940 Sex Assigned At Not on file [place], [place] Start: 09-20-1962 End: 09-20-1964 History of tobacco use Current smoker [facility] Work Phone: Start: 09-20-1962 End: 09-20-1964 History of tobacco use Cigarette Smoker [facility] Work Phone: Start: 02-10-2018 End: 02-04-2023 Cigarettes smoked current (pack per day) - Reported 1 [facility] Start: 02-10-2018 End: 05-23-2024 Tobacco use and exposure Smokeless tobacco non-user [facility] Work Phone: Start: 09-14-2021 End: 05-18-2025 Alcohol intake Current non-drinker of alcohol (finding) [facility] Start: 07-04-2021 History SDOH Alcohol Frequency 1 [facility] Start: 05-31-2020 History SDOH Alcohol Binge 99 [facility] Start: 07-04-2021 History SDOH Social Connections Phone 3 [facility] Start: 07-04-2021 History SDOH Social Connections Get Together 2 [facility] Start: 07-04-2021 History SDOH Social Connections Meetings 98 [facility] Start: 07-04-2021 History SDOH Financial 5 [facility] Start: 07-04-2021 Education 12 [facility] Start: 01-03-2022 End: 07-03-2022 Exposure to SARS-CoV-2 (event) Not sure [facility] Work Phone: Start: 11-12-2021 End: 06-25-2023 Tobacco smoking status NHIS Unknown if ever smoked [facility] Start: 10-13-2016 None [facility] Start: 10-13-2016 Spouse/ Significant Other [facility] Start: 01-20-2021 Cigarettes [facility] Start: 1940 Sex Assigned At Male [facility] Do you belong to any clubs or organizations such as restoration groups, unions, fraternal or athletic groups, or school groups? Yes [facility] Start: 08-21-2012 How often do you attend meetings of the clubs or organizations you belong to? Patient refused [facility] Are you now , , , , never or living with a partner? [facility] How often to you hav e a drink containing alcohol? Never [facility] Do you feel stress - tense, restless, nervous, or anxious, or unable to sleep at night because your mind is troubled all the time - these days [OSQ] Not at all [facility] (I/We) worried wheth er (my/our) food would run out before (I/we) got money to buy more. Never true [facility] In the past 12 month s, was there a time when you were not able to pay the mortgage or rent on time? No [facility] Start: 04-20-2022 End: 11-28-2024 Sex Male (finding) [facility] How hard is it for y ou to pay for the very basics like food, housing, medical care, and heating Not very hard [facility] Start: 09-08-2022 End: 03-19-2025 Alcoholic beverage intake Ex-drinker (finding) [facility] Medical Equipment Procedure Code Equipment Code Equipment Origin al Text Equipment Identifier Dates Repair, hernia, ventral, with mesh insertion ([id number]) Extra-gynaecological surgical mesh, composite-polymer [id number] FDA Start: 08-31-2024 Evacuation, hematoma SEALANT,FLOSEAL HEMOSTATIC [...] SUTURE,LIGA CLIP SM LT-100 FDA Start: 01-20-2021 ([id number]) Abdominal aorta endovascular stent-graft ()[id number] FDA Start: 04-07-2023 Abdominal aorta endovascular stent-graft ()[id number] FDA Start: 04-07-2023 Abdominal aorta endovascular stent-graft ()[id number] FDA Start: 04-07-2023 Femoral vessel s uture implantation set ()[id number] FDA Start: 04-07-2023 Kit Embo Avm Gi x 18 - [id number] Start: 03-16-2025 Coil Embo Embold 20mm 50cm - [id number] Start: 03-16-2025 Coil Embo Embold 22mm 60cm - [id number] Start: 03-16-2025 Device Clsr Mynx interior painter 6-7fr Grn - [id number] Start: 03-16-2025 Goals Date Patient Goal [...] 12/01/2024 1:58 PM Lori Sue, CHRISTIANO No [facility] 12-01-2024 Are you blind, or do you have serious difficulty seeing, even when wearing glasses No 12/01/2024 1:58 PM Lori Sue, CHRISTIANO No [facility] 12-01-2024 Do you have serious difficulty walking or climbing stairs No 12/01/2024 1:58 PM Lori Sue, CHRISTIANO No [facility] 12-01-2024 Do you have difficul ty dressing or bathing No 12/01/2024 1:58 PM Lori Sue, CHRISTIANO No [facility] 12-01-2024 Because of a physica l, mental, or emotional condition, do you have difficulty doing errands alone such as visiting a physician's office or shopping No 12/01/2024 1:58 PM Lori Sue RN No [facility] 08-31-2024 Functional status Ambulates [facility] Work Phone: 04-08-2023 Functional status Activity Abili ty Standby Assist [facility] Work Phone: 04-08-2023 Functional status Patient Activi ty Chair;Stand with Urinal [facility] Work Phone: 04-08-2023 Functional status None [facility] Work Phone: 01-16-2015 Are you deaf, or do you have serious difficulty hearing No 01/16/2015 3:35 PM EDT Sara Cassidy LPN No [facility] 01-16-2015 Are you blind, or do you have serious difficulty seeing, even when wearing glasses No 01/16/2015 3:35 PM BAKARIT Sara Cassidy LPN No [facility] 01-16-2015 Do you have serious difficulty walking or climbing stairs No 01/16/2015 3:35 PM BAKARIT Sara Cassidy LPN No [facility] 01-16-2015 Do you have difficul ty dressing or bathing No 01/16/2015 3:35 PM Sara Santillan LPN No [facility] 01-16-2015 Because of a physica l, mental, or emotional condition, do you have difficulty doing errands alone such as visiting a physician's office or shopping No 01/16/2015 3:35 PM EDT Sara Cassidy LPN No [facility] Mental Status Date Assessment Result Facility 12-01-2024 Because of a physica l, mental, or emotional condition, do you have serious difficulty concentrating, remembering, or making decisions No 12/01/2024 1:58 PM EDT Lori Sesay, CHRISTIANO No [facility] 11-28-2024 Cognitive function Level Of Cons ciousness Awake;Alert;Appropriate [facility] Work Phone: 08-31-2024 Cognitive function Voice/Name [facility] Work Phone: 12-27-2023 Cognitive function Voice/Name [facility] Work Phone: 05-26-2023 Cognitive function Awake;Alert;Appropriat e [facility] Work Phone: 04-08-2023 Cognitive function Voice/Name;Touch/Shaki ng [facility] Work Phone: 02-25-2023 Cognitive function Voice/Name [facility] Work Phone: 01-16-2015 Because of a physica l, mental, or emotional condition, do you have serious difficulty concentrating, remembering, or making decisions No 01/16/2015 3:35 PM EDT Sara Cassidy LPN No [facility] Clinical Notes 08-26-2017 to 05-18-2025 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 Patient/authorized safety representative agreed to proceed The patient is [...] night. - He was evaluated by his security representative who increased his Lasix to 80 mg daiy for a few days - Notes improvement in dyspnea and resolution of palpitations with diuretic use Anemia: - Recent aortic surgery on March 16 at [facility] by Dr. Bobo. - Post operative anemia, most recent CBC in February revealed improved anemia but has not been rechecked since then Subclinical hypothyroidism: - Taking levothyroxine as prescribed, denies missing doses Review of Systems See HPI PAST MEDICAL HISTORY Diagnosis Date Abdominal aortic aneurysm (AAA) without rupture 08/26/201708/2017: 3.7 cm Anemia Chronic diastolic CHF (congestive heart failure) ([facility]) 10/20/[address] Montes CKD (chronic kidney disease) stage 3, GFR 30-59 ml/min ([facility]) 02/20/2014 Collagenous colitis 02/04/2023 COVID-19 09/12/2021 DDD (degenerative disc disease), lumbar 08/26/2017 Diarrhea Diverticulosis of colon (without mention of hemorrhage) Hematoma of right iliopsoas muscle 06/21/2019 Internal hemorrhoids without mention of complication Lumbar radiculopathy 08/26/2017 Mixed hyperlipidemia Hyperlipidemia Pancreatic cyst ([facility]) 07/17/2024 S/P carotid endarterectomy right 01/20/2021 [...] 2 LIMB 04/07/2023 AAA stent graft repair, [facility] LAPS RPR RECURRENT INCISIONAL HERNIA REDUCIBLE 07/29/2015 PAST SURGICAL HISTORY OF 09/09/2015 left total knee arthroplasty PAST SURGICAL HISTORY OF 09/15/2017 micro-disectomy L4-L5, with microcompression bilaterally. PAST SURGICAL HISTORY OF Right 12/16/2018 Repair of complex lateral meniscus tear, Right knee REPAIR UMBILICAL HERNIA 1980 Dr. Henry STRESS TEST 09/03/2017 normal ALLERGIES Clonidine, Crestor [Rosuvastatin Calcium], Lipitor [Atorvastatin Calcium], Lisinopril, Nifedipine, and Statins [Hslbcxp-Cni-Ebj Reductase Inhibitors] MEDICATIONS losartan (COZAAR) 100 mg [...] (FLONASE) 50 mcg/actuation nasal spray Use 1 [place] in each nostril daily at bedtime. 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 - Have blood drawn today for a complete blood count (to check for anemia) and a thyroid level documented in this encounter [facility] 05-01-2025 Radiology Diagnostic study note [facility] Imaging Services [address] [place] [address] CTA Abd/Pelvis W/WO Contrast MR#: [id number] Acct: [id number] Name: LEANA CAMEJO Rep #: [id number] : 1940 M 85 From: Gordo Alcaraz MD PCP: Dr. Dallas Reed MD Status: R EG CLI Study:CTA Abd/Pelvis W/WO Contrast Date of Ex am: 04/30/25 Exam# [id number] Ordering Dr: Villa Hawk MD PROCEDURE: CTA [...] abdominal aorta. 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 The patient is status post endoluminal stent grafting of the [place] abdominal aortic aneurysm with the proximal tip [...] side. Questionable localized contrast retention Reading Location: [facility] CC: Dr. Dustin Hawk MD; Dr. Dallas Reed MD ~ Whizzer Hand: Signed [facility] 04-03-2025 Note [facility] 04-03-2025 History of Presen t illness Narrative Images from the original note were not included. [facility] Telephonic Outreach Patient identified by Name and Date of . Discussed care with patient. H@H number provided, will send via Ali as well Program Details Chronic Disease Management [...] - Bi-Weekly Outreach (Recurring) Disposition Based on director sales training, the following disposition is advised: No action needed Luci Matute RN April 03, 2025 12:29 PM documented in this encounter [facility] 03-28-2025 Telephone encounter Note The patient has [...] by mouth once daily. Venessa Grant RN [facility] 03-28-2025 Miscellaneous Notes The patient has been [...] Venessa Grant RN documented in this encounter [facility] 03-20-2025 Note [facility] 03-20-2025 History of Presen t illness Narrative Images from the original note were not included. [facility] Care [facility] Telephonic Outreach Provider Action/FYI Patient identified by Name and Date of . Discussed care with patient. Patient reports he had his cardiac surgery at [facility] on Wednesday and is recovering well, cathleen [...] 2025 10:23 AM documented in this encounter [facility] 03-19-2025 Telephone encounter Note Spoke with patient [...] would like to have this done at [facility] as it is much closer to home. I stated we will fax order to [place] and work to schedule imaging there. Patient expressed understanding and thanked me for calling. [facility] 03-19-2025 Miscellaneous Notes Spoke with patient to [...] would like to have this done at [facility] as it is much closer to home. I stated we will fax order to [place] and work to schedule imaging there. Patient expressed understanding and thanked me for calling. documented in this encounter [facility] 03-16-2025 Hospital Discharg e instructions Fide Miller [...] a call between 8am and 5pm. - [facility] Radiology - [phone] - [facility] Radiology - [phone] - For questions after hours, please call [phone] and ask for the on-call Angiography Radiologist. This handout is intended to provide general educational material to assist you in making informed decisions regarding your medical care. Specific questions about your unique medical conditions should be referred to your primary care physician. The following attachments cannot be sent through Care Everywhere.Arteriogram Discharge Instructions (South African)documented in this encounter [facility] 03-16-2025 Note Conscious sedation w as administered. Patient tolerated the procedure well. Transfer to IR recovery for observation. [facility] 03-16-2025 Nurse Note Conscious sedation was administered. Patient tolerated the procedure well. Transfer to IR recovery for observation. [facility] 03-16-2025 Nurse Note Conscious sedation was administered. [...] monitors were placed. 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 Dr. Boob in to speak with the patient regarding procedure, and consent was obtained. Patient's lab values and allergies were reviewed. Patient was placed supine on exam table, prepped and draped in sterile fashion. Telemetry monitors were placed. [facility] 03-16-2025 Note IVR History & Physic al [...] artery. He follows with Dr. Hawk in [place] for surveillance. CT A/P on 01/18/25 revealed [...] Component Value Date (more content not included)... [facility] 03-12-2025 Note Formatting of this n ote might be different from the original. Spoke to patient. Reviewed instructions for procedure. Please arrive to the Main Entrance ([address] [facility]), on ground floor go to registration if you are not pre-registered. If pre-registered, continue on ground floor, follow past [employer] and the [employer], take Elevator 21 [...] or friend. Questions answered. Verbalized understanding. . [facility] 03-12-2025 Note Spoke to patient. Reviewed instructions for procedure. Please arrive to the Main Entrance ([address] [place] [address]), on ground floor go to registration if [...] or friend. Questions answered. Verbalized understanding. . [facility] 03-12-2025 Miscellaneous Notes Spoke to patient. Reviewed instructions for procedure. Please arrive to the Main Entrance ([address] [place] [address]), on ground floor go to registration if [...] Verbalized understanding. . documented in this encounter [facility] 03-12-2025 Miscellaneous Notes Left message for patient. Reviewed instructions for procedure. Please arrive to the Main Entrance ([address] [facility]), on ground floor go to registration if you are not pre-registered. If pre-registered, continue on ground floor, follow past [employer] and the [employer], take Elevator 21 to the 2nd [...] or friend. . documented in this encounter [facility] 03-12-2025 Note Formatting of this n ote might be different from the original. Left message for patient. Reviewed instructions for procedure. Please arrive to the Main Entrance ([address] [place] [address]), on ground floor go to registration if [...] responsible adult family member or friend. . [facility] 03-12-2025 Note Left message for pat ient. Reviewed instructions for procedure. Please arrive to the Main Entrance ([address] [place] [address]), on ground floor go to registration if [...] responsible adult family member or friend. . [facility] 03-12-2025 Note [facility] 03-12-2025 History of Presen t illness Narrative CC: Patient presents with: Follow Up: 6 months HPI Recording using Prob[employer] okna software for draft documentation of the visit was discussed with the patient/authorized safety representative; all questions welcomed and answered. Patient/authorized safety representative agreed to proceed Krystle Camejo is [...] leaking graft. - Previous surgeries performed at [facility]; upcoming procedure by Dr. Bobo at [facility]. Review of Systems See HPI PAST [...] 2 LIMB 04/07/2023 AAA stent graft repair, [facility] RPR RECURRENT INCISIONAL HERNIA REDUCIBLE 07/29/2015 PAST SURGICAL HISTORY OF 09/09/2015 left total knee arthroplasty PAST SURGICAL HISTORY OF 09/15/2017 micro-disectomy L4-L5, with microcompression bilaterally. PAST SURGICAL HISTORY OF Right 12/16/2018 Repair of complex lateral meniscus tear, Right knee REPAIR UMBILICAL HERNIA 1980 Dr. Henry STRESS TEST 09/03/2017 normal ALLERGIES Clonidine, Crestor [Rosuvastatin Calcium], Lipitor [Atorvastatin Calcium], Lisinopril, Nifedipine, and Statins [Deyaryj-Vqg-Unv Reductase Inhibitors] MEDICATIONS carvedilol (COREG) 12.5 mg [...] (FLONASE) 50 mcg/actuation nasal spray Use 1 [place] in each nostril daily at bedtime. aspirin [...] repair by interventional radiologist Dr. Bobo at [facility] on Wednesday. - This will be [...] Darya Borden APRN.CNP documented in this encounter [facility] 03-12-2025 Instructions Darya Borden APRN.CNP - 03/12/2025 [...] scheduled aortic repair procedure this Wednesday in [place] with Dr. Bobo. - Continue caring for the superficial skin sore on your bottom--keep it clean and dressed--and let us know if it worsens or shows signs of infection. documented in this encounter [facility] 03-02-2025 Note [facility] 03-02-2025 History of Presen t illness Narrative [...] 2025 11:50 AM documented in this encounter [facility] 03-01-2025 Consult note Formatting of [...] stated that they are currently in the [facility]. If the patient is a minor, [...] current facility-administered medications for this visit. T [facility] 03-01-2025 Consult note Formatting of th is [...] conscious sedation and embolization with coils and Bowie via the above-mentioned approach. Risks of bleeding, [...] stated that they are currently in the [facility]. If the patient is a minor, [...] for this visit. documented in this encounter [facility] 03-01-2025 Note Interventional Radio logy Consultation March [...] conscious sedation and embolization with coils and Bowie via the above-mentioned approach. Risks of bleeding, [...] stated that they are currently in the [facility]. If the patient is a minor, [...] No current facility-administered medications for this visit. [facility] 02-26-2025 Note [facility] 02-26-2025 History of Presen t illness Narrative [...] Continued Management via [facility] Adriane Whiet RN February 26, 2025 2:28 PM documented in this encounter [facility] 02-19-2025 Note [facility] 02-19-2025 History of Presen t illness Narrative [...] 2025 11:36 AM documented in this encounter [facility] 02-15-2025 Telephone encounter Note The patient has [...] Short LPN February 15, 2025 4:50 PM [facility] 02-15-2025 Miscellaneous Notes The patient has been [...] 2025 4:50 PM documented in this encounter [facility] 02-15-2025 Telephone encounter Note Prescription Refill Information [...] is out on the weekend. Monica Ball [facility] February 15, 2025 4:40 PM [facility] 02-15-2025 Miscellaneous Notes Prescription Refill Information The [...] is out on the weekend. Monica Ball [facility] February 15, 2025 4:40 PM documented in this encounter [facility] 02-14-2025 Procedure note [facility] 02-14-2025 History and physical note Note Date/Time February 14, 2025 11:36am [facility] Medical Records Department [address] [place] [address] History & Physical Exam 02/14/25 1133 MR#: [id number] Acct: [id number] Name: LEANA CAMEJO Rep #:[id number] : 1940 85 From: Dustin Hawk MD PCP: Dr. Dallas Reed MD Status:R [place] Location: [facility] HPI - General HPI Narrative LEANA CAMEJO, is a 85 M who presents with prior EVAR with type II endoleak, increasing residual sac. Patent MUNDO with robust communication with SMA; 2 lumbararteries. [facility] Medical History Spigelian hernia Wears hearing aid [...] (From Allergy Other Verified 01/12/25 10:29 Crestor) Ftjdoxy-FMR-UdX Reductase Allergy Other Verified 01/12/25 10:29 Inhibitor (Oclearm-Aoh-Tku Reductase Inhibitor) Family History Father Lung cancer [...] Hawk MD; Dr. Dallas Reed MD~ Signed [facility] Work Phone: 1(174) 943-549605-28-2025 History and physical note [facility] Medical Records Department [address] [place] [address] History & Physical Exam 02/14/25 1133 MR#: [id number] Acct: [id number] Name: LEANA CAMEJO Rep #:[id number] : 1940 85 From: Dustin Hawk MD PCP: Dr. Dallas Reed MD Status:R [place] Location: [facility] HPI - General HPI Narrative LEANA CAMEJO, is a 85 M who presents with prior EVAR with type II endoleak, increasing residual sac. Patent MUNDO with robust communication with SMA; 2 lumbararteries. [facility] Medical History Spigelian hernia Wears hearing aid [...] (From Allergy Other Verified 01/12/25 10:29 Crestor) Ruqneys-UVI-DoS Reductase Allergy Other Verified 01/12/25 10:29 Inhibitor (Nloqzxt-Ard-Wxa Reductase Inhibitor) Family History Father Lung cancer [...] Hawk MD; Dr. Dallas Reed MD~ Signed [facility]05-28-2025 [facility] Medical Records Department [address] [place] [address] History Physical Exam 02/14/25 1133 MR#: [id number] Acct: [id number] Name: LEANA CAMEJO Rep #: [id number] : 1940 85 From: Dustin Hawk MD PCP: Dr. Dallas Reed MD Status:[facility] Location: [facility] HPI - General HPI Narrative LEANA CAMEJO, is a 85 M who presents with prior EVAR with type II endoleak, increasing residual sac. Patent MUNDO with robust communication with SMA; 2 lumbar arteries. 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 [facility] Care Path Telephonic Outreach Provider [...] visit addressed - Schedule Biannual PCP Appointment Adriane White RN February 01, 2025 1:48 PM [facility] encounter[facility] History of Present illness Narrative* Adriane White [...] were you homeless or living in a senior living (including now)?: No Transportation Needs In the [...] 17, 2025 2:17 PM [facility] encounter[facility] Discharge summary Author Hernandez King [facility] Note Date/Time January 12, 2025 1:[facility] [address] [place] [address] Emergency Department Summary 01/12/25 MR#: [id number] Acct: [id number] Name: LEANA CAMEJO Rep #:[id number] : [...] of aortic graft which was evaluated at [facility] November of this year. 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 Medical History Spigelian hernia Wears hearing aid [...] (From Allergy Other Verified 01/12/25 10:29 Crestor) Zbrpfpu-RDJ-XuB Reductase Allergy Other Verified 01/12/25 10:29 Inhibitor (Dbakxxv-Ebh-Cab Reductase Inhibitor) Family History Father Lung cancer [...] were changed when he was at the [facility]. He and his both commented [place]. General [...] % (Auto) 63.2 Lymph % (Auto) 22.3 [place] % (Auto) 9.8 Eos % (Auto) 3.5 [...] of the examination is unchanged. Reading Location: [facility] Since the endoleak is unchanged and there [...] anything return to the emergency Print Language: South African Disposition Disposition: Home, Self Care What to do if you have Problems For any increased pain, shortness of breath, bleeding, nausea or vomiting, chestpain, or any unexpected problems, contact your Primary Care Provider. Call [facility] ([phone]) or report to the closest Emergency Room. Call 911 if necessary. 01/12/25 1321 <Electronically signed by Hernandez King MD> Cosigner Signature (if applicable): CC: Dr. Dallas Reed MD ~ Signed [facility] Work Phone: 1(226) 636-656904-25-2025 Discharge summary [facility] Medical Records Department [address] [place] [address] Emergency Department Summary 01/12/25 MR#: [id number] Acct: [id number] Name: LEANA CAMEJO Rep #:[id number] : [...] of aortic graft which was evaluated at [facility] November of this year. 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 Medical History Spigelian hernia Wears hearing aid [...] (From Allergy Other Verified 01/12/25 10:29 Crestor) Uvcsori-VMS-LmV Reductase Allergy Other Verified 01/12/25 10:29 Inhibitor (Xfctuor-Fze-Rcc Reductase Inhibitor) Family History Father Lung cancer [...] were changed when he was at the [facility]. He and his both commented [place]. General Appearance [...] % (Auto) 63.2 Lymph % (Auto) 22.3 [place] % (Auto) 9.8 Eos % (Auto) 3.5 [...] of the examination is unchanged. Reading Location: [facility] Since the endoleak is unchanged and [...] anything return to the emergency Print Language: South African Disposition Disposition: Home, Self Care What to do if you have Problems For any increased pain, shortness of breath, bleeding, nausea or vomiting, chestpain, or any unexpected problems, contact your Primary Care Provider. Call [facility] ([phone]) or report tothe closest Emergency Room. Call 911 if necessary. 01/12/25 1321 Cosigner Signature (if applicable): CC: Dr. Dallas Reed MD ~ Signed [facility]04-25-2025 Radiology Diagnostic study note [facility] Imaging Services [address] [place] [id number] Abdomen/Pelvis W IV Cont ONLY MR#: [id number] Acct: [id number] Name: LEANA CAMEJO Rep #: [id number] : 1940 M 85 From: Gordo Alcaraz MD PCP: Dr. Dallas Reed MD Status: R EG ER Study:Abdomen/Pelvis W IV Cont ONLY Date of E xam: 01/12/25 Exam# [id number] Ordering Dr: Rhett King MD PROCEDURE: ABDOMEN/PELVIS [...] Liver: Diffuse fatty infiltration. Gallbladder: Unremarkable. Spleen: Opqljeov-hu-jsjdht degree of splenomegaly. This is unchanged. Pancreas: [...] of the examination is unchanged. Reading Location: [facility] CC: Dr. Hernandez King MD; Dr. Dallas Reed MD ~ Whizzer Hand: Signed [facility]04-08-2025 [facility] History of Present illness Narrative* Adriane White RN - 12/26/2024 11:21 AM EDT Transitional Care Management (TCM) Follow-Up Note PCP Update / Actionable Items N/A - No specialty updates needed Patient Source: In-Network Discharge Follow-up outreach: TCM enrolled patient Outreach Summary: Patient reports some mild sob and palpitations last night, he does have a call out to his provider from [place] and will discuss with him, as well [...] 26, 2024 11:27 AM documented in this encounter[facility] Evaluation note* Diagnosis Onset Date Resolution Status Admit Date Type II endoleak of aortic graft [facility] December 25, 2024 3:30pm 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 February 14, 2025 9:24am [facility] Work Phone: [phone] Evaluation note* Diagnosis Onset Date Resolution Status Admit Date 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 (Goal Met) Avery in home exercise program. (Goal Met) Patient [...] 944 Ramon Lee PT documented in this encounterAs[facility]abula [facility]04-01-2025 [facility] History of Present illness Narrative* Adriane White [...] 19, 2024 10:29 AM documented in this encounterAshtabula [facility]04-01-2025 [facility] History of Present illness Narrative* Ramon Lee, [...] toward set goals. PLAN FOR NEXT VISIT: [place]. SUBJECTIVE: No new falls. Left side anterior [...] 957 Ramon Lee PT documented in this encounterAshtabula [facility]03-28-2025 Note[facility] History of Present illness Narrative* Ramon Lee [...] 954 Ramon Lee PT documented in this encounterAshtabula [facility] Center03-25-2025 [facility] History of Present illness Narrative* Ramon Lee [...] Bilateral knee collapse (worse on R) during kkh-gg-ympcty without use of hands and with increased [...] 956 Ramon Lee PT documented in this encounterAshtabula [facility]03-24-2025 Telephone encounter Note * Telephone Encounter - [...] Fagan RPh December 11, 2024 2:24 PM [facility]03-24-2025 Miscellaneous Notes* Telephone Encounter - Emily Fagan [...] information discussed today. [facility] any [facility] questions or concerns. Emily Fagan RPh December 11, 2024 2:24 PM documented in this encounterAshtabula County [facility] Center03-24-2025 [facility] History of Present illness Narrative* Adriane White [...] further. Routed to RX 4C Medication Question ([id number]) and indicate in Pharmacy Box Patient Questions [...] 11, 2024 11:55 AM documented in this encounterAshtabula [facility] Center03-24-2025 Telephone encounter Note * Telephone Encounter - Theodora Hernandze LPN - 12/11/2024 9:14 AM EDT Prescription [...] Hernandez LPN December 11, 2024 9:14 AM [facility]03-24-2025 Miscellaneous Notes* Telephone Encounter - Theodora Hernandez [...] failure. He is asking for a new halfway script to be sent to the [facility] in [place]. documented in this encounterAshtabula [facility] Center03-24-2025 Telephone encounter Note * Telephone Encounter - Vicky Narvaez - 12/11/2024 8:16 AM EDT Patient was placed back on hydralazine 100 mg after hospital visit and alternative medication failure. 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 [facility]03-21-2025 Instructions* Patient Instructions* Dallas Reed MD - 12/08/2024 12:[address] HAWK FOR FOLLOW UP OF ENDOLEAK OF YOUR ANEURYSM. documented in this encounterAshtabula County Medical Center03-21-2025 [facility] History of Present illness Narrative* Dallas Reed [...] referred to the ER, then transferred to [facility]. Patient was admitted to [facility] and [...] 2 LIMB 04/07/2023 AAA stent graft repair, [facility] RPR RECURRENT INCISIONAL HERNIA REDUCIBLE 07/29/2015 [...] for follow up. He is establish with [facility] and did not need a [...] medications Dallas Reed MD documented in this encounterAshtabula County Medical Center03-21-2025 Note[facility]03[facility] History of Present illness Narrative* Ramon Lee, [...] 954 Ramon Lee PT documented in this encounterAshtabula County Medical Center03-19-2025 History of Present illness Narrative* Ramon Lee, PT - 12/06/2024 9:54 AM EDT Program_ID:[id number] Access Code: [email or web address] URL: [email or web address] Date: 12-06-2024 Prepared By: Ramon Lee Program [...] with recent ED visit and [facility] in [facility]. From Chart - admitted on 11/28 after starting to have LLQ pain starting Friday 11/24. [facility] and they ordered a CT that showed an enlarged abdominal aorta comapred toprior. Patient was recommended to present to hospital. Patient went to [facility] and there hisSBP was 140. Patient was [...] 955 Ramon Lee PT documented in this encounterAshtabula County Medical Center03-19-2025 NoteSelect [facility]03-17-2025 NoteHNO ID: [id number] Author: DALLAS REED MD Service: ? Author Type: Physician Type: Progress Notes Filed: 12/05/2024 12:54 Note Text: Medication list updated. Continue current medications per patient report. Follow up this Wednesday as scheduled.[facility] History of Present illness Narrative* Dallas Reed MD - 12/04/2024 2:11 PM EDT Medication list updated. Continue current medications per patient report. Follow up this Wednesday as scheduled. * Yessenia Price, [facility] - 12/04/2024 7:13 AM EDT TRANSITION CARE [...] these changes if you agree or have operations support coordinator contact pt to advise what you recommend [...] oz) Patient was sent a message via [employer] including the link to the [facility] Heart Failure education video: Yes Initial contact with patient post discharge, spoke to patient, and verified that any applicable caregiver is active in patient's medical care. Patient identified by name and . Summary: -Pt discharged from [facility] on 12/01/24. -Medication review done Full medication [...] pain starting Friday 11/24. Patient went to [facility] urgent care on Wednesday and they ordered a CT that showed an enlarged abdominal aorta comapred to prior. Patient was recommended to present to hospital. Patient went to [facility] and there hisSBP was 140. Patient was [...] (FLONASE) 50 mcg/actuation nasal spray Use 1 [place] in each nostril daily at bedtime. Discontinued: [...] Pt is not taking Removed Preferred pharmacy: [facility] [address] [place] [id number] [phone] [facility] - [phone] 18[address] [facility] [id number] Estimated Creatinine Clearance: 33.5 mL/min (A) (based on SCr of 1.59 mg/dL (H)). Estimated Glomerular Filtration Rate (mL/min/1.73m ) Date Value 12/01/2024 43 (L) eGFR- (no units) Date Value 07/02/2021 57 Additional follow up: Next 5 Appointments Date and Time Provider Department Dept Phone 12/06/2024 9:15 AM Ramon Lee PT [facility] [phone] 12/08/2024 9:15 AM Ramon Lee PT [facility] [phone] 12/08/2024 11:40 AM Dallas Reed INTM [facility] [phone] 12/12/2024 9:15 AM Ramon Lee PT [facility] [phone] 12/15/2024 9:15 AM Ramon Lee PT [facility] [phone] Interventions Made: Adherence counseling Pharmacist Recommendations Made Potential drug interaction/side effects/adverse effects detected Care Coordination: Escalated to specialist provider Time spent on patient: 45-60 minutes Yessenia Price RPh December 04, 2024 7:14 AM documented in this encounterAshtabula County Medical Center03-17-2025 Note[facility]03-[facility] History of Present illness Narrative* Adriane White, CHRISTIANO - 12/04/2024 9:40 AM EDT Transition Care Management (TCM) Initial Outreach PCP Update / Actionable Items HRTIC TCM Home Visit Referral Source of Stratification: TCM HUB Hospital Admission Status: Discharged Readmission Risk Score: 11 Patient's zip code: [address] Is zip code within program service area: [...] follow up with patient. Patient discharged from [facility] Discharge date: 12/01/24 Admitted for: Type 2 endoleak of aortic graft Readmission Risk: 11 Value-Based Contract: ACO Contact: Contact made with patient: Yes Hi, my name is Adriane White RN and I am calling from the [facility] on behalf of your Primary Care Provider, [...] I will send your request to a mill order scheduler who will contact and assist you with [...] 04, 2024 9:43 AM documented in this encounterAshtabula County Medical Center03-17-2025 Note[facility]03-[facility]-2025 Telephone encounter Note* Telephone Encounter - Dustin [...] with plan. Dustin Lombardi APRN.CNP 7:06 PM [facility] Work Phone: [phone] Miscellaneous Notes* Telephone Encounter - Dustin Lombardi [...] Lombardi APRN.CNP 7:06 PM documented in this encounterAshtabula County Medical Center03-14-2025 Note[facility]03-14-2025 Note[facility]03-13-2025 Note[facility]03-11-2025 Note[facility]03-[facility] History of Present illness Narrative* Tali Maldonado APRN.CNP - 11/28/2024 10:08 PM EDT Images from the original note were not included. Critical Care Transport Note Patient Name: Leana Camejo Service Date: 11/28/24 Referring Physician: Isaac Referring Facility: [facility] Accepting Physician: Gabrielle Accepting Facility: [facility] SUBJECTIVE/CHIEF COMPLAINT: LLQ abdominal pain REASON [...] stenosis, anemia and HPL. [place] [facility] acute onset abdominal pain. Per rep ort he has had LLQ abdominal pain since Wednesday (11/24/24). In the ED he was noted to be mildly hypertensive, no N/V, no peripheral numbness/tingling. CT noted interval increased size of abdominal aortic aneurysm sac compared to prior exam, interval increased blush within the [place] aortic sac, evidence of type 2 endo leak. He was given morphine and zofran in the ED. At this time, the physician managing the patient requested transfer to the [facility] for tertiary and/or quaternary services unavailable at the referring facility. The physician managing the patient requested the [facility] Critical Care Transport Team transport and treat the patient for the purpose of tertiary care, evaluation, and management of his acute AAA with endoleak condition(s). Air medical transport was requested to reduce the ryi-xx-xchtmvxr time, 27 minutes by air vs. approximately [...] Date Abdominal aortic aneurysm (AAA) without rupture ([facility]) 08/26/201708/2017: 3.7 cm Anemia Chronic diastolic CHF (congestive heart failure) ([facility]) 10/20/[address] Montes CKD (chronic kidney disease) stage 3, GFR 30-59 ml/min ([facility]) 02/20/2014 Collagenous colitis 02/04/2023 COVID-19 09/12/2021 [...] Calcium], Lipitor [Atorvastatin Calcium], Lisinopril, and Statins [Cdyaudu-Sbz-Snd Reductase Inhibitors] SOCIAL HISTORY: Social History Tobacco [...] Interval increase in contrast blush within the [place] aortic sac. These findings consistent with progressive [...] HR < 70 - Expedite transport to [facility] for further workup and care The transport was completed without significant incident or change in the patient's status. The patient was transported to the the [facility] by Rotor (Helicopter) for tertiary and/or quaternary evaluation and management of his Critical Surgical condition(s). Upon arrival to the receiving facility, a ayuo-ws-kzox report was given to bedside nursing staff [id number] and bedside medical team . Patient care [...] endoleak and the Cardiovascular impairment, Respiratory impairment, RELIGIOUS LEADER impairment, Shock, Cardiac Arrest, and Severe metabolic abnormality which the patient had and/or had a high probability of suddenly developing. SIGNATURE: Tali Maldonado APRN.CNP Acute Care Nurse Practitioner [facility] Critical Care Transport Team documented in this encounterAshtabula County Medical Center03-11-2025 Discharge summary [facility] Medical Records Department [address] [place] [address] Emergency Department Summary 11/28/24 MR#: [id number] Acct: [id number] Name: LEANA CAMEJO Rep #:[id number] : [...] (From Allergy Other Verified 11/28/24 17:53 Crestor) Qibdmqu-OTZ-WiN Reductase Allergy Other Verified 11/28/24 17:53 Inhibitor (Ossoipm-Eyx-Hcn Reductase Inhibitor) Family History Father Lung cancer [...] pain and outpatient CT done at the [facility] facility locally yesterday showed a AAA of [...] this or another cause. I spoke to [facility] auto launch 2 of their surgeons a [...] 71.3 H Lymph % (Auto) 17.0 L [place] % (Auto) 9.1 Eos % (Auto) 1.6 [...] Sl. Cloudy Urine pH 6.5 Ur Specific [place] 1.010 Urine Protein 15 H Urine Glucose [...] Interval increase in contrast blush within the [place] aortic sac. These finding is consistent with [...] use of iterative reconstruction technique). Reading Location: [facility] Rhythm Strip Rhythm Strip: Sinus Rhythm Rate: 87 Ectopy: None EKG Initial EKG: Attestation: I personally reviewed and interpreted this EKG as follows: Interpretation: Sinus Rhythm and No Acute Injury Pattern Comments: Normal sinus rhythm rate 87 no acute signs of PA or ischemia. Discharge Plan Triage Chief Complaint: [...] MD [Primary Care Provider] - Print Language: South African Disposition Disposition: Acute Care Hospital What to do if you have Problems For any increased pain, shortness of breath, bleeding, nausea or vomiting, chestpain, or any unexpected problems, contact your Primary Care Provider. Call [facility] ([phone]) or report tothe closest Emergency Room. Call 911 if necessary. 11/28/241919 Cosigner Signature (if applicable): CC: Dr. Dallas Reed MD ~ Signed [facility]03-11-2025 Radiology Diagnostic study note [facility] Imaging Services [address] [place] [address] Abdomen/Pelvis W IV Cont ONLY MR#: [id number] Acct: [id number] Name: LEANA CAMEJO Rep #: [id number] : 1940 M 84 From: Raegan Gupta MD PCP: Dr. Dallas Reed MD Status: P RE ER Study:Abdomen/Pelvis W IV Cont ONLY Date of E xam: 11/28/24 Exam# [id number] Ordering Dr: Mira Gray MD PROCEDURE: ABDOMEN/PELVIS [...] abnormal enhancement within the sac of the red lake aorta which are consistent with endoleak arising [...] Interval increase in contrast blush within the red lake aortic sac. These finding is consistent with [...] use of iterative reconstruction technique). Reading Location: [facility] CC: Dr. Nate Gray MD; Dr. Dallas Reed MD ~ Whizzer Hand: Signed [facility]03-11-2025 Telephone encounter Note* Telephone Encounter - Sheeba Castellano MA - 11/28/2024 5:22 PM EDT Nurse called back line and I spoke to another provider Susan Gates CLIENT ADVISOR since pcp/CLIENT ADVISOR were out. ROSSI Gates advised patient needs to go to ER due to pain and change in aortic size. Did call patient who advised will go to [facility] ER and aware of results from radiologist below. Called [facility] ER and spoke to Dr. Gray and faxed CT/office note/Radiologist report to [phone]. Sheeba Castellano MA [facility]03-11-2025 Miscellaneous Notes* Telephone Encounter - Sheeba Castellano MA - 11/28/2024 5:22 PM EDT Nurse called back line and I spoke to another provider Susan Gates CLIENT ADVISOR since pcp/CLIENT ADVISOR were out. ORSSI Gates advised patient needs to go to ER due to pain and change in aortic size. Did call patient who advised will go to [facility] ER and aware of results from radiologist below. Called [facility] ER and spoke to Dr. Gray and faxed CT/office note/Radiologist report to [phone]. Sheeba Castellano MA * Telephone Encounter - Venessa Grant RN - 11/28/2024 5:08 PM EDT Received call from Dr. Ga, F Radiologist regarding pt's CT ABD/PEL results stating per result note, there has been interval enlargement of the red lake lumen consistent with a hemodynamically significant leak'. Dr. Ga states he is unsure if this is cause for patient's pain but he is asking provider to address this and contact patient. Venessa Grant RN documented in this encounterAshtabula County Medical Center03-11-2025 Telephone encounter Note * Telephone Encounter - Venessa Grant RN - 11/28/2024 5:08 PM EDT Received call from Dr. Ga, F Radiologist regarding pt's CT ABD/PEL results stating per result note, there has been interval enlargement of the red lake lumen consistent with a hemodynamically significant leak'. Dr. Ga states he is unsure if this is cause for patient's pain but he is asking provider to address this and contact patient. Venessa Grant RN [facility]03-11-2025 Discharge summary Author Nate Gray [facility] Note Date/Time November 28, 2024 7:2 0pm [facility] Medical Records Department [address] [place] [address] Emergency Department Summary 11/28/24 MR#: [id number] Acct: [id number] Name: LEANA CAMEJO Rep #:[id number] : [...] (From Allergy Other Verified 11/28/24 17:53 Crestor) Zacdlxf-YVL-EsJ Reductase Allergy Other Verified 11/28/24 17:53 Inhibitor (Jygmfjn-Cyw-Nqi Reductase Inhibitor) Family History Father Lung cancer [...] pain and outpatient CT done at the [facility] facility locally yesterday showed a AAA of [...] this or another cause. I spoke to [facility] auto launch 2 of their surgeons a [...] 71.3 H Lymph % (Auto) 17.0 L [place] % (Auto) 9.1 Eos % (Auto) 1.6 [...] Sl. Cloudy Urine pH 6.5 Ur Specific [place] 1.010 Urine Protein 15 H Urine Glucose [...] Interval increase in contrast blush within the red lake aortic sac. These finding is consistent with [...] use of iterative reconstruction technique). Reading Location: [facility] Rhythm Strip Rhythm Strip: Sinus Rhythm Rate: 87 Ectopy: None EKG Initial EKG: Attestation: I personally reviewed and interpreted this EKG as follows: Interpretation: Sinus Rhythm and No Acute Injury Pattern Comments: Normal sinus rhythm rate 87 no acute signs of PA or ischemia. Discharge Plan Triage Chief Complaint: [...] MD [Primary Care Provider] - Print Language: South African Disposition Disposition: Acute Care Hospital What to do if you have Problems For any increased pain, shortness of breath, bleeding, nausea or vomiting, chestpain, or any unexpected problems, contact your Primary Care Provider. Call [facility] ([phone]) or report to the closest Emergency Room. Call 911 if necessary. 11/28/24 1920 <Electronically signed by Nate Gray MD> Cosigner Signature (if applicable): CC: Dr. Dallas Reed MD ~ Signed [facility] Work Phone: 1(630) 538-213003-10-2025 Instructions* Patient Instructions* Darya Borden APRN.SHAWNA - 11/27/2024 11:27 AM EDT Go to ER or call 911 if you develop severe abdominal pain, vomiting that won't stop, high fever, rigid/hard abdomen. documented in this encounterAshtabula County Medical Center03-10-2025 [facility]03-10-2025 History of Present illness Narrative* Darya Borden [...] Date Abdominal aortic aneurysm (AAA) without rupture ([facility]) 08/26/201708/2017: 3.7 cm Anemia Chronic diastolic CHF (congestive heart failure) ([facility]) 10/20/[address] Montes CKD (chronic kidney disease) stage 3, GFR 30-59 ml/min ([facility]) 02/20/2014 Collagenous colitis 02/04/2023 COVID-19 09/12/2021 [...] 2 LIMB 04/07/2023 AAA stent graft repair, [facility] LAPAROSCOPY SURG RPR INITIAL INGUINAL HERNIA 07/29/2015 [...] Calcium], Lipitor [Atorvastatin Calcium], Lisinopril, and Statins [Jqrludt-Mcu-Oxy Reductase Inhibitors] MEDICATIONS hydrALAZINE (APRESOLINE) 100 mg tablet Take 1 tablet by mouth three times a day. levothyroxine (SYNTHROID) 25 mcg tablet Take 1 tablet by mouth daily before breakfast. bempedoic acid (NEXLETOL) 180 mg tablet Take 1 tablet (180 mg) by mouth once daily. fluticasone (FLONASE) 50 mcg/actuation nasal spray Use 1 [place] in each nostril daily at bedtime. aspirin [...] Level: 4 - Moderate documented in this encounterAshtabula County Medical Center03-10-2025 Note[facility]03-10-2025 History of Present illness Narrative* Gavin Rivero APRN.SHAWNA - 11/27/2024 9:46 AM EDT Nontoxic-appearing 84-year-old male presents urgent care chief complaint abdominal pain. Duration of symptoms 2 days. Associated symptoms left-sided abdominal pain. States aching-like discomfort. OTCmedications none. States this started after eating at [employer] Wednesday night. Presents today for evaluation. States pain is persistent. No vomiting. No change in bowel or bladder habits. No fevers. Appointment today at 11 AM with PCP Gavin Rivero APRN.SHUTTLECOCK FEATHER TRIMMER documented in this encounterAshtabula County Medical Center03-07-2025 Note[facility]03-07-2025 History of Present illness Narrative* Ramon Lee, [...] 822 Ramon Lee PT documented in this encounterAshtabula County Medical Center03-04-2025 History of Present illness Narrative* Ramon Lee, PT - 11/21/2024 11:26 AM EST Program_[email or web address]:[id number] Access Code: [email or web address] URL: [email or web address] Date: 11-21-2024 Prepared By: Ramon Lee Program [...] established 11/21/24 Patient will report no falls. [place] in home exercise program. Patient will Improve [...] Planned: 8 Planned Treatment Interventions: Therapeutic exercise (51809), Neuromuscular re- education (20236), Manual therapy (11805), Therapeutic activities (34078), Self- custodial management (54648), Patient/Family/Caregiver Education PLAN FOR NEXT VISIT: Challenge [...] report. Subsequent Abrasion/contusion on head. [facility] three days later andthen followed up [...] Knee Scope (15-20 years). 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 Montes CKD (chronic kidney disease) stage 3, GFR 30-59 ml/min ([facility]) 02/20/2014 Collagenous colitis 02/04/2023 COVID-19 09/12/2021 [...] 1130 Ramon Lee PT documented in this encounterAshtabula County Medical Center03-04-2025 NoteSelect [facility]02-20-2025 NoteSelect [facility]02-20-2025 History of Present illness Narrative* Dallas Reed MD - 11/09/2024 2:20 PM EST This note was created using [employer]. Subjective Leana Camejo is a 84 year [...] (FLONASE) 50 mcg/actuation nasal spray Use 1 [place] in each nostril daily at bedtime. aspirin [...] THERAPY Dallas Reed MD documented in this encounterAshtabula County Medical Center02-18-2025 NoteSelect [facility]02-18-2025 History of Present illness Narrative* Elbert Hawk APRN.[facility] - 11/07/2024 11:57 AM EST Subjective HPI [...] Date Abdominal aortic aneurysm (AAA) without rupture ([facility]) 08/26/201708/2017: 3.7 cm Anemia Chronic diastolic CHF (congestive heart failure) ([facility]) 10/20/[address] Montes CKD (chronic kidney disease) stage 3, GFR 30-59 ml/min ([facility]) 02/20/2014 Collagenous colitis 02/04/2023 COVID-19 09/12/2021 [...] 2 LIMB 04/07/2023 AAA stent graft repair, [facility] LAPAROSCOPY SURG RPR INITIAL INGUINAL HERNIA 07/29/2015 [...] Calcium], Lipitor [Atorvastatin Calcium], Lisinopril, and Statins [Rvzhbod-Oyt-Wpu Reductase Inhibitors] MEDICATIONS hydrALAZINE (APRESOLINE) 100 mg tablet Take 1 tablet by mouth three times a day. levothyroxine (SYNTHROID) 25 mcg tablet Take 1 tablet by mouth daily before breakfast. bempedoic acid (NEXLETOL) 180 mg tablet Take 1 tablet (180 mg) by mouth once daily. fluticasone (FLONASE) 50 mcg/actuation nasal spray Use 1 [place] in each nostril daily at bedtime. aspirin [...] OINTMENT Elbert Hawk APRN.SHAWNA documented in this encounterAshtabula County Medical Center01-13-2025 Telephone encounter Note * Telephone Encounter - [...] Please advise. Thank you. Cassandra Couch LPN. [facility]01-13-2025 Miscellaneous Notes* Telephone Encounter - Cassandra Couch [...] you. Cassandra Couch LPN. 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 Would like script sent to Laureen Asif. [facility]12-20-2024 Miscellaneous Notes* Telephone Encounter - Ibeth Manriquez [...] thyroid labs in 3 months Darya Borden APRN.SHUTTLECOCK FEATHER TRIMMER documented in this encounterAshtabula County Medical Center12-20-2024 Telephone encounter Note * Telephone Encounter - Ibeth Manriquez LPN - 09/08/2024 9:29 AM EST ----- Message from Darya Borden APRN.SHAWNA sent at 09/08/2024 6:34 AM EST ----- Please let the patient know his lab results are consistent with hypothyroidism. Start treatment with levothyroxine 25 mcg daily and recheck thyroid labs in 3 months Darya Borden APRN.SHUTTLECOCK FEATHER TRIMMER [facility]12-19-2024 Instructions* Patient Instructions* Darya Borden APRN.CNP - [...] review all the medicines you take, even uryg-jfv-uewsbll medicines. As you get older, the way [...] have certain medical conditions. documented in this encounterAshtabula County Medical Center12-19-2024 NoteSelect [facility]12-19-2024 History of Present illness Narrative* Darya Borden APRN.SHAWNA - 09/07/2024 10:07 AM EST Images from the original note were not included. Leana Cmaejo is a 84 year old male here [...] General (Internal Medicine) Fide Goff RN as Buckle Sorter (Internal Medicine) Darya Borden APRN.CNP as Flosser (Internal Medicine) Cardiology- Dr. Felipe Aquaculture Worker- Dr. Dominguez Vascular surgeon-Dr. Bruce Medical/Family history [...] Counseled on low sodium diet Darya Borden APRN.SHUTTLECOCK FEATHER TRIMMER documented in this encounterAshtabula County Medical Center12-09-2024 NoteSelect [facility]12-09-2024 History of Present illness Narrative* Fide Goff RN - 08/28/2024 11:06 AM EST CDM Telephonic Outreach Provider Action/FYI CDM: CHF, CKD 2nd Attempt Lvm, Instructed to contact PCP/Provider for symptom changes, concerns or needs. Contacted for: Routine Telephonic Outreach Contact made with patient: No, left message. Fide Goff RN August 28, 2024 11:09 AM documented in this encounterAshtabula County Medical Center12-05-2024 NoteSelect [facility]12-05-2024 History of Present illness Narrative* Fide Goff RN - 08/24/2024 1:20 PM EST CDM Telephonic Outreach Provider Action/FYI CDM: CHF, CKD 1st Attempt Lvm, Instructed to contact PCP/Provider for symptom changes, concerns or needs. Contacted for: Routine Telephonic Outreach Contact made with patient: No, left message. Fide Goff RN August 24, 2024 1:21 PM documented in this encounterAshtabula County Medical Center12-04-2024 [facility] Medical Records Department [address] [place] [address] History Physical Exam 08/23/24 1233 MR#: [id number] Acct: [id number] Name: LEANA CAMEJO Rep #: [id number] : 1940 84 From: Lara Fonseca MD PCP: Dr. Dallas Reed MD Status:[facility] Location: [place] [address] History and Physical Date of Admission: 08/23/24 Date of Service: 07/26/24 MR#: [id number] Acct: [id number] Name: LEANA CAMEJO Rep #: [id number] : 1940 Provider: Dr. Lara Fonseca MD Age/Sex: 84/M Location: [facility] Status: Signed Intake Vital Signs 07/11/2416:09 07/26/2409:19 Height 5 ft 8 in 5 ft 8 in Weight: 156 lb BMI 23.7 BP 111/66 Blood Pressure Location Rt brachial Position Sitting Respiration 18 Intake Visit Reasons: SPIGELIAN HERNIA Chief Complaint: spigelian hernia Receiving Clerk Required: No Is patient in pain?: No Allergies lisinopril Allergy (Intermediate, Verified 07/26/24 09:20) Rashatorvastatin calcium (From Lipitor) Allergy (Verified 07/26/24 09:20) Otherclonidine Allergy (Verified 07/26/24 09:20) Unknownrosuvastatin calcium (From Crestor) Allergy (Verified 07/26/24 09:20) JmjajFovcuxh-YSI-LxD Reductase Inhibitor (Tigxjxl-Rlc-Dbs Reductase Inhibitor) Allergy (Verified 07/26/24 09:20) Other [...] in the past. ROS (more content not included)...[facility]12-04-2024 [facility] Medical Records Department [address] [place] [address] History Physical Exam 08/23/24 1233 MR#: [id number] Acct: [id number] Name: LEANA CAMEJO Rep #: [id number] : 1940 84 From: Lara Fonseca MD PCP: Dr. Dallas Reed MD Status:[facility] Location: [place] [address] History and Physical Date of Admission: 08/23/24 Date of Service: 07/26/24 MR#: [id number] Acct: [id number] Name: LAENA CAMEJO Rep #: [id number] : 1940 Provider: Dr. Lara Fonseca MD Age/Sex: 84/M Location: [facility] Status: Signed Intake Vital Signs 07/11/2416:09 07/26/2409:19 Height 5 ft 8 in 5 ft 8 in Weight: 156 lb BMI 23.7 BP 111/66 Blood Pressure Location Rt brachial Position Sitting Respiration 18 Intake Visit Reasons: SPIGELIAN HERNIA Chief Complaint: spigelian hernia Receiving Clerk Required: No Is patient in pain?: No Allergies lisinopril Allergy (Intermediate, Verified 07/26/24 09:20) Rashatorvastatin calcium (From Lipitor) Allergy (Verified 07/26/24 09:20) Otherclonidine Allergy (Verified 07/26/24 09:20) Unknownrosuvastatin calcium (From Crestor) Allergy (Verified 07/26/24 09:20) VhggnVcgsbhy-DFA-YsH Reductase Inhibitor (Htvhzbs-Pvb-Rml Reductase Inhibitor) Allergy (Verified 07/26/24 09:20) Other [...] in the past. ROS (more content not included)...[facility]11-14-2024 Telephone encounter Note* Telephone Encounter - Maribell Huston LPN - 08/03/2024 8:16 AM EST Form faxed back to number on it. [facility]11-14-2024 Miscellaneous Notes* Telephone Encounter - Maribell Huston [...] forms. Maria E to re-fax forms to [phone]. Ranjana Soto RN documented in this encounterAshtabula County Medical Center11-13-2024 Telephone encounter Note * Telephone Encounter - Dallas Reed MD - 08/02/2024 5:27 PM EST Form completed, signed. [facility]11-12-2024 Telephone encounter Note* Telephone Encounter - Maribell Huston LPN - 08/01/2024 10:36 AM EST Surgical clearance form rec'd and to pcp to review. [place] [address]-12-2024 Telephone encounter Note* Telephone Encounter - Ranjana Soto RN - 08/01/2024 9:34 AM EST Maria E with Dr. Bruce calls to ask if we received surgical clearance forms for patient on 07/26/2024. Noted an OV note from Dr. Bruce but no forms. Maria E to re-fax forms to [phone]. Ranjana Soto RN [facility]11-04-2024 Note[facility]11-04-2024 History of Present illness Narrative* Fide Goff RN - 07/24/2024 9:57 AM EST CDM Telephonic Outreach Provider Action/FYI 07/11/24 Pt noted seen at [facility] ED for Left Abd Hernia pain 07/24/24 Pt denies nausea, or vomiting, denies Abd pain Voiding and BM's without difficulty, eating and hydrating well denies fever or chills No medications were ordered Pt has 07/26/24 Appt with Surgeon at [facility] Pt had recent bilateral shoulder pain, completed bilateral injections 07/17/24 by [facility] Instructed to contact PCP/Provider for symptom [...] to talk about today? Yes Based on director sales training, the following disposition is advised: No symptoms or symptoms present, not severe. Routed to: No Action Needed PAVEL Education Provided this Outreach: No Fide Goff RN July 24, 2024 10:01 AM documented in this encounterAshtabula County Medical Center11-02-2024 NoteSelect [facility]11-02-2024 History of Present illness Narrative* Fide Goff RN - 07/22/2024 4:04 PM EDT CDM Telephonic Outreach Provider Action/FYI CDM: CHF, CKD 1st Attempt Contacted for: Routine Telephonic Outreach Contact made with patient: No, unable to leave message. Will reattempt call Fide Goff RN July 22, 2024 4:08 PM documented in this encounterAshtabula County Medical Center10-28-2024 Instructions* Patient Instructions* Dallas Reed MD - 07/17/2024 1:40 PM EDT FASTING BLOOD WORK NEXT MONTH BEFORE APPOINTMENT. documented in this encounterAshtabula County Medical Center10-28-2024 Note[facility]10-28-2024 History of Present illness Narrative* Dallas Reed MD - 07/17/2024 1:24 PM EDT This note was created using [employer]. Subjective Leana Camejo is a 84 year [...] (HCC) Chronic Diastolic Chf (Congestive Heart Failure) ([facility]) Allergic Rhinitis Abdominal Aortic Aneurysm (Aaa) Without [...] disorder. Dallas Reed MD documented in this encounterAshtabula County Medical Center10-22-2024 [facility]10-22-2024 History of Present illness Narrative* Gavin Rivero APRN.CNP - 07/11/2024 4:01 PM EDT Nontoxic-appearing male presents urgent care chief complaint abdominal pain and distention. Duration of symptom 1 week. Associated symptoms listed above. Presents today for evaluation. Discussed following up with PCP versus ED. Patient states will be seen emergency room today for further evaluationcare. Will be sent [facility]. will transport patient. Gavin Rivero APRN.CNP documented in this encounterAshtabula County Medical Center10-04-2024 [facility]10-04-2024 History of Present illness Narrative* Fide Goff [...] care with patient Outcomes: Patient switched from [facility] to telephone outreach Are you experiencing any new or worsening symptoms you need to talk about today? No Based on director sales training, the following disposition is advised: No symptoms [...] 22, 2024 9:47 AM documented in this encounterAshtabula County Medical Center10-03-2024 NoteSelect [facility], [facility]09-18-2024 Instructions* Patient Instructions* Dallas Reed MD - 06/07/2024 9:12 AM EDT FASTING BLOOD WORK JULY. documented in this encounterAshtabula County Medical Center09-18-2024 NoteSelect [facility]09-18-2024 History of Present illness Narrative* Dallas Reed MD - 06/07/2024 8:34 AM EDT This note was created using NoteWriter. Subjective Patient presents with: [facility] F/U Leana Camejo is a 84 year [...] (HCC) Chronic Diastolic Chf (Congestive Heart Failure) ([facility]) Allergic Rhinitis Abdominal Aortic Aneurysm (Aaa) Without Rupture ([facility]) Overweight (Bmi 25.0-29.9) S/P carotid endarterectomy right [...] Abs Lymph 1.00 - 4.00 k/uL 1.04 [place]% % 10.0 Abs [place] <0.87 k/uL 0.63 Eosin% % 1.9 Abs Eosin <0.46 k/uL 0.12 Baso% % 0.6 Abs Baso <0.11 k/uL 0.04 Immature Gran % % 0.5 IMMATURE GRANS (ABS) <0.10 k/uL 0.03 NRBC /100 WBC 0.0 Absolute nRBC <0.01 k/uL <0.01 DTYPE Auto Color Yellow Yellow Clarity Clear Clear Glucose, Urine Negative Negative Bilirubin, Urine Negative Negative Ketones, Urine Negative Negative Specific [place], Ur 1.005 - 1.030 1.016 Hemoglobin/Blood,Ur Negative [...] BASIC Dallas Reed MD documented in this encounterAshtabula County Medical Center09-04-2024 [facility] Medical Records Department [address] [place] [address] Discharge Summary 05/24/24 1137 MR#: [id number] Acct: [id number] Name: LEANA CAMEJO Rep #: [id number] : 1940 84 From: Brant Alcantara MD PCP: Dr. 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 No change. Calcified plaque noted at the origin of vertebral arteries with possible mild stenosis unchanged. Echocar (more content not included)...[facility]09-03-2024 Note [facility]09-03-2024 History of Present illness Narrative* Adrian Warner [...] vertigo previously and was treated successfully by [facility]. When he got up he just [...] 08/26/2017: Abdominal aortic aneurysm (AAA) without rupture ([facility]) Comment: 08/2017: 3.7 cm No date: Anemia 10/20/2016: Chronic diastolic CHF (congestive heart failure) ([facility]) Comment: Sees Dr. Montes 02/20/2014: CKD (chronic kidney disease) stage 3, GFR 30-59 ml/min ([facility]) 02/04/2023: Collagenous colitis 09/12/2021: COVID-19 08/26/2017: [...] Calcium], Lipitor [Atorvastatin Calcium], Lisinopril, and Statins [Sjuvvvm-Rgh-Wav Reductase Inhibitors] MEDICATIONS Current Outpatient Medications Medication [...] to ED. Patient will drive himself to [facility] ED. Again, patient refuses against medical advice. The patient indicates understanding of these issues and agrees with the plan. Reviewed red flags and when to seek care sooner. Adrian Warner PA-C documented in this encounterAshtabula County Medical Center09-03-2024 Telephone encounter Note * Telephone Encounter - [...] a provider today 05-23-24. Perlita Tang LPN [facility]09-03-2024 Miscellaneous Notes* Telephone Encounter - Perlita Tang [...] 05-23-24. Perlita Tang LPN documented in this encounterAshtabula County Medical Center07-19-2024 Telephone encounter Note * Telephone Encounter - Maribell Huston LPN - 04/07/2024 1:53 PM EDT Fax rec'd from Dr. Davis's office notifying pcp that pt cancelled 04/24/[address] Davis.Fax to pcp then to medical records for scanning. [facility]07-19-2024 Miscellaneous Notes* Telephone Encounter - Maribell Huston LPN - 04/07/2024 1:53 PM EDT Fax rec'd from Dr. Davis's office notifying pcp that pt cancelled 04/24/[address] Davis.Fax to pcp then to medical records for scanning. documented in this encounterAshtabula County Medical Center07-03-2024 Telephone encounter Note * Telephone Encounter - [...] Shirley Mehta March 22, 2024 1:17 PM [facility]07-03-2024 Miscellaneous Notes* Telephone Encounter - Shirley Corey [...] 22, 2024 1:17 PM documented in this encounterAshtabula County Medical Center06-22-2024 History of Present illness Narrative* Prema Agee [...] Level: 3 - Low documented in this encounterAshtabula County Medical Center06-18-2024 History of Present illness Narrative* Fide Goff [...] pounds in a week? Yes Based on director sales training, the following disposition is advised: No symptoms or symptoms present, not severe. Routed to: No Action Needed PAVEL Education Provided this Outreach: No Fide Goff RN March 07, 2024 4:54 PM documented in this encounterAshtabula County Medical Center06-17-2024 Telephone encounter Note * Telephone Encounter - [...] Cathleen Mehta March 06, 2024 9:00 AM [facility]06-17-2024 Miscellaneous Notes* Telephone Encounter - Cathleen Ortega [...] tablet by mouth once daily. Cathleen Tang [facility] March 06, 2024 9:00 AM documented in this encounterAshtabula County Medical Center06-17-2024 Telephone encounter Note * Telephone Encounter - Adriana Short LPN - 03/06/2024 8:56 AM EDT Patient calling asking to have referral faxed to Dr Flaherty office at [phone]. Patient said his shoulder pain is bothering him quite a lot. Printed office notes, insurance card copies, face sheet, xray reports, consult and faxed as requested. Patient said he has appt in April. [facility]06-17-2024 Miscellaneous Notes* Telephone Encounter - Adriana Short LPN - 03/06/2024 8:56 AM EDT Patient calling asking to have referral faxed to Dr Flaherty office at [phone]. Patient said his shoulder pain is bothering him quite a lot. Printed office notes, insurance card copies, face sheet, xray reports, consult and faxed as requested. Patient said he has appt in April. documented in this encounterAshtabula County Medical Center06-11-2024 Telephone encounter Note * Telephone Encounter - Shahana Delgado LPN - 02/29/2024 2:53 PM EDT Pt calls to request shoulder xray results and insurance cards be faxed to [facility] in [facility]. Faxed to: [phone] as requested. Shahana Delgado LPN [facility]06-11-2024 Miscellaneous Notes* Telephone Encounter - Shahana Delgado LPN - 02/29/2024 2:53 PM EDT Pt calls to request shoulder xray results and insurance cards be faxed to [facility] in [facility]. Faxed to: [phone] as requested. Shahana Delgado LPN documented in this encounterAshtabula County Medical Center05-23-2024 Telephone encounter Note * Telephone Encounter - [...] Please advise. Thank you. Damir Summers MA. [facility]05-23-2024 Miscellaneous Notes* Telephone Encounter - Damir Summers [...] Thank you. Lorena Kimbrough. documented in this encounterAshtabula County Medical Center05-23-2024 Telephone encounter Note * Telephone Encounter - Lorena Kimbruogh - 02/10/2024 8:57 AM EDT Patient has [...] found Please advise. Thank you. Lorena Kimbrough. [facility]05-22-2024 History of Present illness Narrative* Ayla Carrasquillo PA-C - 02/09/2024 5:09 PM EDT This note was created using [employer]. Subjective Leana Camejo is a 84 year old male. HPI Presents with a chief complaint of bilateral shoulder pain over the past 2 weeks. He states has been keeping him up at night. He states when he lays on 1 shoulder or the other it is very painful. He has tried some Tylenol aigh-gux-rnzotzg. No injury to his shoulders. He states [...] Date Abdominal aortic aneurysm (AAA) without rupture ([facility]) 08/26/201708/2017: 3.7 cm Anemia Chronic diastolic CHF (congestive heart failure) ([facility]) 10/20/[address] Montes CKD (chronic kidney disease) stage 3, GFR 30-59 ml/min ([facility]) 02/20/2014 Collagenous colitis 02/04/2023 COVID-19 09/12/2021 [...] 2 LIMB 04/07/2023 AAA stent graft repair, [facility] LAPAROSCOPY SURG RPR INITIAL INGUINAL HERNIA 07/29/2015 [...] LEFT Ayla Carrasquillo PA-C documented in this encounterAshtabula County Medical Center05-22-2024 History of Present illness Narrative* Kae Alexander [...] PATIENT PRESENTS WITH AN IMPLANTABLE OR ATTACHED COLLECTIONS OFFICER: No RADIOLOGY DEPARTMENT: General X-ray: Exam(s) Completed: Upper Extremity X- Ray(s): Shoulder, AP / TRUE AP bilateral Scapular Y view PERIPHERAL IV DATA: Not applicable SIGNED BY: RT Warner(R) February 09, 2024 4:32 PM documented in this encounterAshtabula County Medical Center04-29-2024 History of Present illness Narrative* Shaun Kowalski MD - 01/17/2024 8:30 AM EDT Images from the original note were not included. Heart, Vascular and Thoracic [place] DEPARTMENT OF VASCULAR SURGERY OUTPATIENT VISIT DATE [...] Date Abdominal aortic aneurysm (AAA) without rupture ([facility]) 08/26/201708/2017: 3.7 cm Anemia Chronic diastolic CHF (congestive heart failure) ([facility]) 10/20/[address] Montes CKD (chronic kidney disease) stage 3, GFR 30-59 ml/min ([facility]) 02/20/2014 Collagenous colitis 02/04/2023 COVID-19 09/12/2021 [...] 2 LIMB 04/07/2023 AAA stent graft repair, [facility] LAPAROSCOPY SURG RPR INITIAL INGUINAL HERNIA 07/29/2015 [...] 2024 TIME: 8:30 AM documented in this encounterAshtabula County Medical Center04-22-2024 Instructions* Patient Instructions* Darya Borden, ADZ WORKER.SHUTTLECOCK FEATHER TRIMMER - 01/10/2024 9:12 AM EDT Fluticasone (Flonase) nasal spray documented in this encounterAshtabula County Medical Center04-22-2024 History of Present illness Narrative* Darya Borden [...] latest scan. Referred to [facility] in [place]. Review of Systems See HPI PAST MEDICAL HISTORY Diagnosis Date Abdominal aortic aneurysm (AAA) without rupture ([facility]) 08/26/201708/2017: 3.7 cm Anemia Chronic diastolic CHF (congestive heart failure) ([facility]) 10/20/[address] Montes CKD (chronic kidney disease) stage 3, GFR 30-59 ml/min ([facility]) 02/20/2014 Collagenous colitis 02/04/2023 COVID-19 09/12/2021 [...] 2 LIMB 04/07/2023 AAA stent graft repair, [facility] LAPAROSCOPY SURG RPR INITIAL INGUINAL HERNIA 07/29/2015 [...] Calcium], Lipitor [Atorvastatin Calcium], Lisinopril, and Statins [Gdxlonl-Kqo-Tnr Reductase Inhibitors] MEDICATIONS ascorbic acid, vitamin C, [...] 441.4, ICD10: I71.40 Follow-up with vascular at [facility] as scheduled Prescription instructions reviewed with patient as applicable. Potential red flag symptoms discussed with the patient. Reviewed appropriate action plan to take if red flag symptoms occur. Patient agreeable to treatment plan. Darya Borden APRN.SHUTTLECOCK FEATHER TRIMMER documented in this encounterAshtabula County Medical Center04-22-2024 Nurse Note* Damir Summers MA - 01/10/2024 8:59 AM EDT 01/10/2024: Home BP Cuff Validated. Home BP: 127/58 Office BP: 112/72 [facility]04-22-2024 Nurse Note* Damir Summers MA - 01/10/2024 8:59 AM EDT 01/10/2024: Home BP Cuff Validated. Home BP: 127/58 Office BP: 112/72 documented in this encounterAshtabula County Medical Center04-12-2024 Miscellaneous Notes* Telephone Encounter - Yulisa Minaya - 12/31/2023 9:26 AM EDT Referring Physician - Omid Perez MD Requesting Physician - Dr. Shaun Kowalski Diagnosis: Aneurysm of Iliac Artery Images have been pushed electronically and records. documented in this encounterAshtabula County Medical Center03-10-2024 History of Present illness Narrative* Fide Goff [...] goal align with programs offered at the [facility]? ADL's updated: No Are you experiencing any [...] pounds in a week? No Based on director sales training, the following disposition is advised: No symptoms or symptoms present, not severe. Routed to: No Action Needed PAVEL Education Provided this Outreach: No Fide Goff RN November 28, 2023 3:58 PM documented in this encounterAshtabula County Medical Center11-21-2023 History of Present illness Narrative* Older, DUSTIN Lackey.SHUTTLECOCK FEATHER TRIMMER - 08/10/2023 8:17 AM EST Leana Camejo [...] General (Internal Medicine) Fide Goff RN as Buckle Sorter (Internal Medicine) Outside specialists seen: Cardiology- Dr. Felipe Aquaculture Worker- Dr. Dominguez Vascular- Dr. Perez GI- Dr. [...] provided Darya Singh APRN.CNP documented in this encounterAshtabula County Medical Center11-21-2023 Instructions* Patient Instructions* Darya SinghDUSTIN.SHAWNA - 08/10/2023 [...] review all the medicines you take, even xxjt-ghy-lkcvnlf medicines. As you get older, the way [...] have certain medical conditions. documented in this encounterAshtabula County Medical Center10-06-2023 Miscellaneous Notes* Telephone Encounter - Damir Summers [...] notify patient. Cathleen Mehta documented in this encounterAshtabula County Medical Center08-31-2023 History of Present illness Narrative* Fide Goff [...] to talk about today? No Based on director sales training, the following disposition is advised: No symptoms or symptoms present, not severe. Routed to: No Action Needed PAVEL Education Provided this Outreach: Yes Fide Goff RN May 20, 2023 4:27 PM documented in this encounterAshtabula County Medical Center07-28-2023 History of Present illness Narrative* Dallas Reed MD - 04/16/2023 10:38 AM EDT This note was created using [employer]. Subjective Leana Camejo is a 83 year [...] area twice daily. APPLY TO AFFECTED AREA jo-6-hbd-qrq-J0-P62J10-DX-H-5-way 500-1,000-500 mg-unit-mcg cap Take by mouth. DESENEX [...] Take 1 capsule by mouth once daily. Parkin Q Plus glucosamine/chondr rich A sod (OSTEO [...] Perez. Dallas Reed MD documented in this encounterAshtabula County Medical Center07-20-2023 Consult note Author Marianne Astudillo [facility] April 08, 2023 2:25pm Note Date/Time April 08, 2023 2:23 pm [facility] Medical Records Department [address] [place] [address] Counseling Note - Pharmacy 04/08/23 1421 MR#: [id number] Acct: [id number] Name: LEANA CAMEJO Rep #:[id number] : 1940 83 From: Marianne Astudillo PCP: Dr. Dallas Reed MD Status:A DM IN Y Location: [place] [address] [place] Med Reconciliation Pharmacy Service has performed discharge medication reconciliation for this patient. No new medications at time of discharge review. Medications reviewed are from previously reported home medications. The patient's discharge medication list was reviewed for discrepancies and discrepancies were resolved. Medications at Discharge Home Medications duzml-7-guu-gob-H9-O84Q36-RL-G3-krobuwbssbw 500 mg-1,000 unit-500 mcg cap 1 ea [...] 9 mg PO DAILY BOWELS 02/23/23 04/08/23 142 <Electronically signed by Marianne Astudillo > Date _ Marianne Astudillo Cosigner Signature (if applicable): Date CC: ~ Signed [facility] Work Phone: 1(323) 367-197907-20-2023 Discharge summary Author Omid Perez [facility] April 08, 2023 6:30am Note Date/Time April 07, 2023 6:29 am [facility] Medical Records Department [address] [place] [address] Instructions for Home/Discharge Instructions 04/07/23 0627 MR#: [id number] Acct: [id number] Name: LEANA CAMEJO Rep #:[id number] : [...] With: Omid Perez MD When: Please call [phone] for follow-up office appointment approximately 10days Test Results: Test results from this visit will be discussed in further detail at your follow- up appointment, if applicable. Discharge Plan Admission Admit Date/Time: 04/07/23 05:26 Primary Reason for Your Visit: Infrarenal abdominal aortic aneurysm repair Attending Provider: Omid Perez Primary Care Provider: Dallas Reed Consulting Providers: Dieter Christianson Discharge Orders/Prescriptions Prescriptions: Continued coenzyme Q10 [...] PO QODAY PRN (Reason: heart health) Held ui-4-deg-gmn-P6-L52U12-AH-L-7-osa 1 EACH capsule 1 ea PO DAILY Hold Instructions: Resume on 04/21/23. Patient Comments: supplement Other Ambulatory Orders: CTA Abd/Pelvis W/WO Contrast (Routine) Timeframe: [id number] Facility: [facility] - Location: Cat Scan, [facility] Ordered By: Benita PEREZ Referrals / Follow Up: Dallas Reed MD [Primary Care Provider] - 04/08/23629<Electronically signed by Omid Perez MD>Omid Perez MD CC: Dr. Dieter Christianson MD; Dr. Dallas Reed MD ~ Signed [facility] Work Phone: 1(215) 297-378207-20-2023 Progress note Author Omid Perez [facility] April 08, 2023 6:29am Note Date/Time April 08, 2023 6:30 am [facility] Medical Records Department [address] [place] [address] Progress Note - Surgery 04/08/23627 MR#: [id number] Acct: [id number] Name: LEANA CAMEJO Rep #:[id number] : 1940 83 From: Omid Perez MD PCP: Dr. Dallas Reed MD Status:A DM IN Location: [place] [address] Subjective Subjective Is doing well. No back [...] 71.5 H, Lymph % (Auto) 15.5 L, [place] % (Auto) 9.7, Eos % (Auto) 1.6, [...] Cosigner Signature (if applicable): CC: ~ Signed [facility] Work Phone: 1(404) 670-573807-19-2023 Progress note Author Omid Perez [facility] April 07, 2023 3:21pm Note Date/Time April 07, 2023 3:21 pm [facility] Medical Records Department [address] [place] [address] Progress Note - Surgery 04/07/23 1519 MR#: [id number] Acct: [id number] Name: LEANA CAMEJO Rep #:[id number] : 1940 83 From: Omid Perez MD PCP: Dr. Dallas Reed MD Status:A DM IN Location: [place] [address] Subjective Subjective Notes some back pain. Thinks [...] Cosigner Signature (if applicable): CC: ~ Signed [facility] Work Phone: 1(561) 749-130307-19-2023 Procedure [facility] 04-07-2023 History and physical note Author Omid Perez [facility] April 07, 2023 5:46am Note Date/Time April 07, 2023 5:46 am [facility] Medical Records Department [address] [place] [address] History & Physical Exam 04/07/23 0545 MR#: [id number] Acct: [id number] Name: LEANA CAMEJO Rep #:[id number] : 1940 83 From: Omid Perez MD PCP: Dr. Dallas Reed MD Status:A DM IN Location: [facility] History and Physical Date of Admission: 04/07/23 Receiving Clerk Required: No Is patient in pain?: No Allergies lisinopril Allergy (Intermediate, Verified 03/05/23 07:35) Rashatorvastatin calcium [From Lipitor] Allergy (Verified 03/05/23 07:35) Otherclonidine Allergy (Verified 03/05/23 07:35) Unknownrosuvastatin calcium [From Crestor] Allergy (Verified 03/05/23 07:35) TossxDqagcmx-JXJ-JgF Reductase Inhibitor [Bvkobqu-Hoh-Iuq Reductase Inhibitor] Allergy (Verified 03/05/23 07:35) Other Medications himyu-0-upd-vim-O7-P12E09-DV-S0-hsxqghotkep 500 mg-1,000 unit-500 mcg cap 1 ea [...] Aspirin Regimen) 81 mg PO QDAY PRN [facility] 05/13/22 [History Confirmed 03/05/23] [...] calcium [From Crestor] Allergy (Verified 02/23/23 09:38) CazvnDplazri-BIK-XtI Reductase Inhibitor [Cplcuxk-Dja-Kch Reductase Inhibitor] Allergy (Verified 02/23/23 09:38) Other Medications rczra-0-uwm-mew-I6-T10P78-RB-V8-sfrwmvormyf 500 mg-1,000 unit-500 mcg cap 1 ea [...] He states he was worked up at [facility] in [facility] had a colonoscopy and then suggest that [...] Aorta IVC Iliac vasculature or bypass grafts 35324. The exam was diagnostic. Exam performed in [...] and welldeveloped Nutritional Appearance: average body habitus [facility] Head: normal to inspection Eyes General: appearance [...] return. Copy: Dr. Dallas Perez M.D., F.A.C.S [facility] General General: Yes weight change; [...] Perez MD; Dr. Dallas Reed MD~ Signed [facility] Work Phone: 1(430) 278-651807-19-2023 [facility] History of Present illness Narrative* Cassandra Couch LPN - 03/04/2023 9:57 AM EDT Manual Readin/70 Pulse: 64 BP Fab average: 160/76 Pulse: 62 Repeat BP Check: 166/80 Pulse: 61 160/67 57 156/82 70 150/70 61 * Dallas Reed MD - 03/04/2023 9:49 AM EDT This note was created using [employer]. Subjective Leana Camejo is a 83 year [...] kidney disease) stage 3, GFR 30-59 ml/min ([facility]) Chronic Diastolic Chf (Congestive Heart Failure) ([facility]) Allergic Rhinitis Abdominal Aortic Aneurysm (Aaa) Without Rupture ([facility]) Overweight (Bmi 25.0-29.9) S/P carotid endarterectomy right [...] area twice daily. APPLY TO AFFECTED AREA vo-8-qmo-xym-P6-A70B45-QA-Z-8-ixx 500-1,000-500 mg-unit-mcg cap Take by mouth. DESENEX [...] Take 1 capsule by mouth once daily. Parkin Q Plus glucosamine/chondr rich A sod (OSTEO [...] CTA. Dallas Reed MD documented in this encounterAshtabula County Medical Center05-15-2023 Instructions* Patient Instructions* Adrian Warner PA-C - 02/01/2023 11:00 AM EDT Flonase or saline nasal spray. If you use Flonase and have any bloody noses, stop the flonase. documented in this encounterAshtabula County Medical Center05-15-2023 History of Present illness Narrative* Adrian Warner PA-C - 02/01/2023 10:54 AM EDT 02/01/2023 Patient presents with: Ear Problem: ear pressure, hard of hearing x 1 week SUBJECTIVE: This is a 83 year old that is here today for Complaint(s) of ear pressure and fullness REESE. Recently flew home from [place]. Having trouble hearing. Not wearing hearing aids. Also having sinus pressure and congestion x 2 weeks. Denies chest pain, SOB, wheezing, ear pain, sore throat. Patient admits to using Sinex regularly the last week +. PAST MEDICAL HISTORY Diagnosis Date Abdominal aortic aneurysm (AAA) without rupture ([facility]) 08/26/201708/2017: 3.7 cm Anemia Chronic diastolic CHF (congestive heart failure) ([facility]) 10/20/[address] Montes CKD (chronic kidney disease) stage 3, GFR 30-59 ml/min ([facility]) 02/20/2014 COVID-19 09/12/2021 DDD (degenerative disc disease), lumbar 08/26/2017 Diarrhea Diverticulosis of colon (without mention of hemorrhage) Hematoma of right iliopsoas muscle 06/21/2019 Internal hemorrhoids without mention of complication Lumbar radiculopathy 08/26/2017 Mixed hyperlipidemia Hyperlipidemia S/P carotid endarterectomy right 01/20/2021 Unspecified essential hypertension Essential hypertension ALLERGIES Clonidine, Crestor [Rosuvastatin Calcium], Lipitor [Atorvastatin Calcium], Lisinopril, and Statins [Ciyxhzs-Cio-Zde Reductase Inhibitors] MEDICATIONS Current Outpatient Medications Medication Sig budesonide, enteric coated (ENTOCORT EC) 3 mg 24 hr capsule Take 3 capsules by mouth once daily. triamcinolone acetonide (KENALOG) 0.1 % cream apply to AFFECTED AREAS OF THE UPPER EXTREMITIES TWICE DAILY FOR ... (REFER TO PRESCRIPTION NOTES). pimecrolimus (ELIDEL) 1 % cream Apply to affected area twice daily. APPLY TO AFFECTED AREA [id number] 500-1,000-500 mg-unit-mcg cap Take by mouth. DESENEX [...] Take 1 capsule by mouth once daily. Parkin Q Plus glucosamine/chondr rich A sod (OSTEO [...] sooner. Adrian Warner PA-C documented in this encounterAs[facility]05-[facility]23 Miscellaneous Notes* Telephone Encounter - Lorena Stubbs Ma - 01/19/2023 3:49 PM EDT Approved, pharmacy notified Submitted budesonide auth to insurance, pending response Lorena Stubbs CMA documented in this encounterAs[facility]04-28-[facility]23 Nurse Note* Cathleen Rodriguez RN - 01/15/2023 12:[address] Rodriguez at bedside to speak to patient. Verbalizes understanding. OK to d/c. [facility]* Cathleen Rodirguez RN - 01/15/2023 12:[address] Rodriguez at bedside to speak to patient. Verbalizes understanding. OK to d/c. documented in this encounterAshtabula [facility]04-28-2023 History and physical note * Lisa Rodriguez [...] MAC Additional Comments: None Lisa Rodriguez MD [facility] Work Phone: [phone]) 696-910204-28-2023 History and physical note* Lisa Rodriguez MD [...] None Lisa Rodriguez MD documented in this encounterAshtabula [facility]04-20-2023 Instructions* Patient Instructions* Lisa Rodriguez MD - [...] If you do not have a responsible water tanker driver (family member or friend) with you [...] your exam. 2 08/2019 documented in this encounterAshtabula [facility] Center04-20-2023 History of Present illness Narrative* Lisa Rodriguez [...] nausea, vomiting, loss of appetite, hematemesis, bleeding [facility], unexplained weight loss, tenesmus, nocturnal diarrhea. His stool calprotectin was elevated. C diff was negative. He had screening colonoscopy in May 2020 which was unremarkable. PAST MEDICAL HISTORY Diagnosis Date Abdominal aortic aneurysm (AAA) without rupture ([facility]) 08/26/201708/2017: 3.7 cm Anemia Chronic diastolic CHF (congestive heart failure) ([facility]) 10/20/[address] Montes CKD (chronic kidney disease) stage 3, GFR 30-59 ml/min ([facility]) 02/20/2014 COVID-19 09/12/2021 DDD (degenerative disc [...] area twice daily. APPLY TO AFFECTED AREA [id number] 500-1,000-500 mg-unit-mcg cap Take by mouth. DESENEX [...] Take 1 capsule by mouth once daily. Parkin Q Plus glucosamine/chondr rich A sod (OSTEO [...] 01/07/23 TIME: 4:06 PM documented in this encounterAshtabula [facility] Center04-12-2023 Instructions* Patient Instructions* Dallas Reed MD - 12/30/2022 12:27 PM EDT AVOID DAIRY. documented in this encounterAshtabula [facility] Center04-12-2023 History of Present illness Narrative* Dallas Reed MD - 12/30/2022 12:15 PM EDT This note was created using [employer]. Subjective Leana Camejo is a 82 year old male. He started having diarrhea 12/19, with loose to watery, non bloody stools 2-4 times per day. He did not feel ill. His was not ill. There was no unusual food intake, antibiotic use, or travel. He went to [facility] last week and was advised [...] Take 1 capsule by mouth once daily. Parkin Q Plus glucosamine/chondr rich A sod (OSTEO [...] Perez. Dallas Reed MD documented in this encounterAshtabula [facility] Center10-14-2022 History of Present illness Narrative* Gavin Rivero, ADZ WORKER.SHUTTLECOCK FEATHER TRIMMER - 07/03/2022 5:05 PM EDT Subjective HPI [...] Anemia Chronic diastolic CHF (congestive heart failure) ([facility]) 10/20/[address] Montes CKD (chronic kidney disease) stage 3, GFR 30-59 ml/min ([facility]) 02/20/2014 COVID-19 09/12/2021 DDD (degenerative disc [...] Calcium], Lipitor [Atorvastatin Calcium], Lisinopril, and Statins [Cymqvqj-Clp-Tep Reductase Inhibitors] MEDICATIONS losartan (COZAAR) 100 mg [...] Take 81 mg by mouth once daily. Parkin-3 1,050 mg, Fish Oil, 1,050-1,200 mg cap Take by mouth twice daily. COMPOUNDED PRESCRIPTION Take 1 capsule by mouth once daily. Parkin Q Plus glucosamine/chondr rich A sod (OSTEO [...] on Wednesday if symptoms are not improvingto pick pulling machine operator supplies at lab. Patient was educated on [...] of care. This note was generated using [employer] software. It may contain errors in wording, punctuation, or spelling. Gavin Rivero APRN.SHAWNA documented in this encounterAshtabula [facility] Center09-06-2022 Miscellaneous Notes* Telephone Encounter - Maribell Huston LPN - 05/26/2022 11:47 AM EDT Pt has refills of carvedilol. The others would be needed. * Telephone Encounter - Vicky Mehta - 05/26/2022 8:59 AM EDT Pharmacy verified in [facility] Patient has been identified by [...] advise. Vicky Garcia Pss documented in this encounterAshtabula [facility] Center06-22-2022 Miscellaneous Notes* Telephone Encounter - Vicky Garcia Pss - 03/11/2022 9:18 AM EDT Patient had stopped taking this med, but spoke to his security representative who would like him to continue taking, so patient is in need of a new refill. Pharmacy is the same [facility] as the other med. colestipol (COLESTID) 1 gram tablet (Discontinued) 180 tablet 1 02/14/2021 07/09/2021 Sig: Take 1 tablet by mouth twice daily. For cholesterol. * Telephone Encounter - Vicky Garcia Pss - 03/11/2022 9:17 AM EDT Pharmacy verified in [facility] Patient has been identified by [...] Vicky Garcia Pss 1 documented in this encounterAshtabula [facility] Center06-01-2022 Miscellaneous Notes* Telephone Encounter - Chrissy Worrell [...] Dr. Reed as well. documented in this encounterAshtabula County [facility] Center05-31-2022 History of Present illness Narrative* Nona Maloney [...] Date Abdominal aortic aneurysm (AAA) without rupture ([facility]) 08/26/201708/2017: 3.7 cm Anemia Chronic diastolic CHF (congestive heart failure) ([facility]) 10/20/[address] Montes CKD (chronic kidney disease) stage 3, GFR 30-59 ml/min ([facility]) 02/20/2014 COVID-19 09/12/2021 DDD (degenerative disc [...] Calcium], Lipitor [Atorvastatin Calcium], Lisinopril, and Statins [Nzdcoym-Qpx-Eik Reductase Inhibitors] MEDICATIONS carvedilol (COREG) 12.5 mg [...] Take 81 mg by mouth once daily. Parkin-3 1,050 mg, Fish Oil, 1,050-1,200 mg cap Take by mouth twice daily. COMPOUNDED PRESCRIPTION Take 1 capsule by mouth once daily. Parkin Q Plus glucosamine/chondr rich A sod (OSTEO [...] plan. Nona Maloney APRN.SHAWNA documented in this encounterAshtabula [facility] Center05-24-2022 History of Present illness Narrative* Janelle Sanchez [...] PCP. Janelle Sanchez LPN documented in this encounterAshtabula [facility] Center05-23-2022 History of Present illness Narrative* Denver Elizalde RN - 02/09/2022 12:59 PM EDT [facility] Engagement Provider Action/FYI: Call to Pt left a message to verify CHF/ CKD symptom status and needs provided. Insight Questionnaire location reminder provided. Contact Made with Patient: No, second attempt, left message. Blaise Camejo. This is Fide Goff RN your Armature Inspector from the [facility]. I am calling to check in with you concerning the MyChart questionnaire you have been receiving from me. I will call you again next week and am looking forward to speaking with you. (Care Coordinatorenters next week's date in next patient outreach) Fide Goff RN February 09, 2022 12:59 PM documented in this encounterAshtabula [facility] Center05-20-2022 History of Present illness Narrative* Denver Elizalde RN - 02/06/2022 3:38 PM EDT [facility] Engagement Provider Action/FYI: Call to Pt left message to verify CHF/ CKD or other symptom status and needs. Contact Made with Patient: No, first attempt, left message. Blaise Camejo. This is Fide Goff RN your Armature Inspector from the [facility]. I am calling to check in with you concerning the MyChart questionnaire you have been receiving from me. I will call you again tomorrow and am looking forward to speaking with you. (Armature Inspector enters next day in next patient outreach) Fide Goff RN February 06, 2022 3:38 PM documented in this encounterAshtabula [facility] Center04-26-2022 History of Present illness Narrative* Dallas Reed MD - 01/13/2022 8:56 AM EDT This note was created using [employer]. Geno Salmonlps is a 82 year old male. He recovered from Covid in August. He went to [facility] in [facility] for IV vitamin infusions. He just had [...] tablet by mouth twice daily with meals. Parkin-3 1,050 mg, Fish Oil, 1,050-1,200 mg cap Take by mouth twice daily. COMPOUNDED PRESCRIPTION Take 1 capsule by mouth once daily. Parkin Q Plus glucosamine/chondr rich A sod (OSTEO [...] BASIC Dallas Reed MD documented in this encounterAshtabula [facility] Center04-26-2022 Evaluation note* Diagnosis Stage 3a chronic kidney disease (HCC)- Primary Chronic diastolic CHF (congestive heart failure) (HCC) Chronic diastolic heart failure Abdominal aortic aneurysm (AAA) without rupture (HCC) BENIGN HYPERTENSION Essential hypertension, benign Other hyperlipidemia documented in this encounter [facility]03-21-[facility]22 History of Present illness Narrative* Denver Elizalde RN - 12/08/2021 5:06 PM EDT [facility] Engagement Provider Action/FYI: Spk with Pt who reports no CHF / CKD symptoms or needs. Contact Made with Patient: Yes Patient identified by name and . Discussed care with patient Blaise turner name is Fide Goff RN your Armature Inspector from Dallas Reed MD office [facility]the [facility]. I am reaching out today because I [...] 08, 2021 5:06 PM documented in this encounterAshtabula [facility] Center12-07-2017 History of Past illness Narrative* Problem Noted Date Resolved Date DDD (degenerative disc disease), lumbar 08/26/20 17 03/15/2018 Lumbar radiculopathy 08/26/2017 03/15/2018 Recurrent ventral incisional hernia 07/01/2015 08/26/2017 Unilateral inguinal hernia without obstruction o r gangrene 07/01/2015 08/26/2017 Well adult exam 01/09/2015 03/15/2018 Overview: last done 01/09/2015 Aneurysm of abdominal aorta 01/11/201212/20 documented as of this encounter (statuses as of 12/08/2021) [facility] of Past illness Narrative* Problem Noted Date Resolved Date DDD (degenerative disc disease), lumbar 08/26/20 17 03/15/2018 Lumbar radiculopathy 08/26/2017 03/15/2018 Recurrent ventral incisional hernia 07/01/2015 08/26/2017 Unilateral inguinal hernia without obstruction o r gangrene 07/01/2015 08/26/2017 Well adult exam 01/09/2015 03/15/2018 Overview: last done 01/09/2015 Aneurysm of abdominal aorta 01/11/201212/20 documented as of this encounter (statuses as of 01/13/2022) [facility] of [facility] illness Narrative* Problem Noted Date Resolved Date DDD (degenerative disc disease), lumbar 08/26/20 17 03/15/2018 Lumbar radiculopathy 08/26/2017 03/15/2018 Recurrent ventral incisional hernia 07/01/2015 08/26/2017 Unilateral inguinal hernia without obstruction o r gangrene 07/01/2015 08/26/2017 Well adult exam 01/09/2015 03/15/2018 Overview: last done 01/09/2015 Aneurysm of abdominal aorta 01/11/201212/20 documented as of this encounter (statuses as of 02/06/2022) [facility] of [facility] Narrative* Problem Noted Date Resolved Date DDD (degenerative disc disease), lumbar 08/26/20 17 03/15/2018 Lumbar radiculopathy 08/26/2017 03/15/2018 Recurrent ventral incisional hernia 07/01/2015 08/26/2017 Unilateral inguinal hernia without obstruction o r gangrene 07/01/2015 08/26/2017 Well adult exam 01/09/2015 03/15/2018 Overview: last done 01/09/2015 Aneurysm of abdominal aorta 01/11/201212/20 documented as of this encounter (statuses as of 02/09/2022) [facility] Narrative* Problem Noted Date Resolved Date DDD (degenerative disc disease), lumbar 08/26/20 17 03/15/2018 Lumbar radiculopathy 08/26/2017 03/15/2018 Recurrent ventral incisional hernia 07/01/2015 08/26/2017 Unilateral inguinal hernia without obstruction o r gangrene 07/01/2015 08/26/2017 Well adult exam 01/09/2015 03/15/2018 Overview: last done 01/09/2015 Aneurysm of abdominal aorta 01/11/201212/20 documented as of this encounter (statuses as of 02/10/2022) [facility] Narrative* Problem Noted Date Resolved Date DDD (degenerative disc disease), lumbar 08/26/20 17 03/15/2018 Lumbar radiculopathy 08/26/2017 03/15/2018 Recurrent ventral incisional hernia 07/01/2015 08/26/2017 Unilateral inguinal hernia without obstruction o r gangrene 07/01/2015 08/26/2017 Well adult exam 01/09/2015 03/15/2018 Overview: last done 01/09/2015 Aneurysm of abdominal aorta 01/11/201212/20 documented as of this encounter (statuses as of 02/17/2022) [facility] Narrative* Problem Noted Date Resolved Date DDD (degenerative disc disease), lumbar 08/26/20 17 03/15/2018 Lumbar radiculopathy 08/26/2017 03/15/2018 Recurrent ventral incisional hernia 07/01/2015 08/26/2017 Unilateral inguinal hernia without obstruction o r gangrene 07/01/2015 08/26/2017 Well adult exam 01/09/2015 03/15/2018 Overview: last done 01/09/2015 Aneurysm of abdominal aorta 01/11/201212/20 documented as of this encounter (statuses as of 02/18/2022) [facility] Narrative* Problem Noted Date Resolved Date DDD (degenerative disc disease), lumbar 08/26/20 17 03/15/2018 Lumbar radiculopathy 08/26/2017 03/15/2018 Recurrent ventral incisional hernia 07/01/2015 08/26/2017 Unilateral inguinal hernia without obstruction o r gangrene 07/01/2015 08/26/2017 Well adult exam 01/09/2015 03/15/2018 Overview: last done 01/09/2015 Aneurysm of abdominal aorta 01/11/201212/20 documented as of this encounter (statuses as of 03/13/2022) [facility] Narrative* Problem Noted Date Resolved Date DDD (degenerative disc disease), lumbar 08/26/20 17 03/15/2018 Lumbar radiculopathy 08/26/2017 03/15/2018 Recurrent ventral incisional hernia 07/01/2015 08/26/2017 Unilateral inguinal hernia without obstruction o r gangrene 07/01/2015 08/26/2017 Well adult exam 01/09/2015 03/15/2018 Overview: last done 01/09/2015 Aneurysm of abdominal aorta 01/11/201212/20 documented as of this encounter (statuses as of 05/26/2022) [facility] Narrative* Problem Noted Date Resolved Date DDD (degenerative disc disease), lumbar 08/26/20 17 03/15/2018 Lumbar radiculopathy 08/26/2017 03/15/2018 Recurrent ventral incisional hernia 07/01/2015 08/26/2017 Unilateral inguinal hernia without obstruction o r gangrene 07/01/2015 08/26/2017 Well adult exam 01/09/2015 03/15/2018 Overview: last done 01/09/2015 Aneurysm of abdominal aorta 01/11/201212/20 documented as of this encounter (statuses as of 07/03/2022) [facility] Narrative* Problem Noted Date Resolved Date DDD (degenerative disc disease), lumbar 08/26/20 17 03/15/2018 Lumbar radiculopathy 08/26/2017 03/15/2018 Recurrent ventral incisional hernia 07/01/2015 08/26/2017 Unilateral inguinal hernia without obstruction o r gangrene 07/01/2015 08/26/2017 Well adult exam 01/09/2015 03/15/2018 Overview: last done 01/09/2015 Aneurysm of abdominal aorta 01/11/201212/20 documented as of this encounter (statuses as of 12/31/2022) [facility] Narrative* Problem Noted Date Resolved Date DDD (degenerative disc disease), lumbar 08/26/20 17 03/15/2018 Lumbar radiculopathy 08/26/2017 03/15/2018 Recurrent ventral incisional hernia 07/01/2015 08/26/2017 Unilateral inguinal hernia without obstruction o r gangrene 07/01/2015 08/26/2017 Well adult exam 01/09/2015 03/15/2018 Overview: last done 01/09/2015 Aneurysm of abdominal aorta 01/11/201212/20 documented as of this encounter (statuses as of 01/08/2023) [facility] Narrative* Problem Noted Date Resolved Date DDD (degenerative disc disease), lumbar 08/26/20 17 03/15/2018 Lumbar radiculopathy 08/26/2017 03/15/2018 Recurrent ventral incisional hernia 07/01/2015 08/26/2017 Unilateral inguinal hernia without obstruction o r gangrene 07/01/2015 08/26/2017 Well adult exam 01/09/2015 03/15/2018 Overview: last done 01/09/2015 Aneurysm of abdominal aorta 01/11/201212/20 documented as of this encounter (statuses as of 01/13/2023) [facility]arrative* Problem Noted Date Resolved Date DDD (degenerative disc disease), lumbar 08/26/20 17 03/15/2018 Lumbar radiculopathy 08/26/2017 03/15/2018 Recurrent ventral incisional hernia 07/01/2015 08/26/2017 Unilateral inguinal hernia without obstruction o r gangrene 07/01/2015 08/26/2017 Well adult exam 01/09/2015 03/15/2018 Overview: last done 01/09/2015 Aneurysm of abdominal aorta 01/11/201212/20 documented as of this encounter (statuses as of 01/19/2023) [facility] Narrative* Problem Noted Date Resolved Date DDD (degenerative disc disease), lumbar 08/26/20 17 03/15/2018 Lumbar radiculopathy 08/26/2017 03/15/2018 Recurrent ventral incisional hernia 07/01/2015 08/26/2017 Unilateral inguinal hernia without obstruction o r gangrene 07/01/2015 08/26/2017 Well adult exam 01/09/2015 03/15/2018 Overview: last done 01/09/2015 Aneurysm of abdominal aorta 01/11/201212/20 documented as of this encounter (statuses as of 01/20/2023) [facility]arrative* Problem Noted Date Resolved Date DDD (degenerative disc disease), lumbar 08/26/20 17 03/15/2018 Lumbar radiculopathy 08/26/2017 03/15/2018 Recurrent ventral incisional hernia 07/01/2015 08/26/2017 Unilateral inguinal hernia without obstruction o r gangrene 07/01/2015 08/26/2017 Well adult exam 01/09/2015 03/15/2018 Overview: last done 01/09/2015 Aneurysm of abdominal aorta 01/11/201212/20 documented as of this encounter (statuses as of 02/01/2023) [facility]arrative* Problem Noted Date Resolved Date DDD (degenerative disc disease), lumbar 08/26/20 17 03/15/2018 Lumbar radiculopathy 08/26/2017 03/15/2018 Recurrent ventral incisional hernia 07/01/2015 08/26/2017 Unilateral inguinal hernia without obstruction o r gangrene 07/01/2015 08/26/2017 Well adult exam 01/09/2015 03/15/2018 Overview: last done 01/09/2015 Aneurysm of abdominal aorta 01/11/201212/20 documented as of this encounter (statuses as of 03/04/2023) [facility]arr[facility]* Problem Noted Date Diagnosed Date Resolved Date DDD (degenerative disc disease), lumbar 08/26/2017 03/15/2018 Lumbar radiculopathy 08/26/2017 018 Recurrent ventral incisional hernia 07/01/2015 08/26/2017 Unilateral inguinal hernia w ithout obstruction or gangrene 07/01/2015 08/26/2017 Well adult exam 01/09/2015 03/15/2018 Overview: last done 01/09/2015 Aneurysm of abdominal aorta 01/11/2012 01/12/2013 documented as of this encounter (statuses as of 04/16/2023) [facility]arrative* Problem Noted Date Diagnosed Date Resolved Date DDD (degenerative disc disease), lumbar 08/26/2017 03/15/2018 Lumbar radiculopathy 08/26/2017 018 Recurrent ventral incisional hernia 07/01/2015 08/26/2017 Unilateral inguinal hernia w ithout obstruction or gangrene 07/01/2015 08/26/2017 Well adult exam 01/09/2015 03/15/2018 Overview: last done 01/09/2015 Aneurysm of abdominal aorta 01/11/2012 01/12/2013 documented as of this encounter (statuses as of 05/21/2023) [facility]arr[facility]* Problem Noted Date Diagnosed Date Resolved Date DDD (degenerative disc disease), lumbar 08/26/2017 03/15/2018 Lumbar radiculopathy 08/26/2017 018 Recurrent ventral incisional hernia 07/01/2015 08/26/2017 Unilateral inguinal hernia w ithout obstruction or gangrene 07/01/2015 08/26/2017 Well adult exam 01/09/2015 03/15/2018 Overview: last done 01/09/2015 Aneurysm of abdominal aorta 01/11/2012 01/12/2013 documented as of this encounter (statuses as of 06/26/2023) [facility]* Problem Noted Date Diagnosed Date Resolved Date DDD (degenerative disc disease), lumbar 08/26/2017 03/15/2018 Lumbar radiculopathy 08/26/2017 018 Recurrent ventral incisional hernia 07/01/2015 08/26/2017 Unilateral inguinal hernia w ithout obstruction or gangrene 07/01/2015 08/26/2017 Well adult exam 01/09/2015 03/15/2018 Overview: last done 01/09/2015 Aneurysm of abdominal aorta 01/11/2012 01/12/2013 documented as of this encounter (statuses as of 08/10/2023) [facility]arr[facility]* Problem Noted Date Diagnosed Date Resolved Date DDD (degenerative disc disease), lumbar 08/26/2017 03/15/2018 Lumbar radiculopathy 08/26/2017 018 Recurrent ventral incisional hernia 07/01/2015 08/26/2017 Unilateral inguinal hernia w ithout obstruction or gangrene 07/01/2015 08/26/2017 Well adult exam 01/09/2015 03/15/2018 Overview: last done 01/09/2015 Aneurysm of abdominal aorta 01/11/2012 01/12/2013 documented as of this encounter (statuses as of 12/01/2023) [facility]* Problem Noted Date Diagnosed Date Resolved Date DDD (degenerative disc disease), lumbar 08/26/2017 03/15/2018 Lumbar radiculopathy 08/26/2017 018 Recurrent ventral incisional hernia 07/01/2015 08/26/2017 Unilateral inguinal hernia w ithout obstruction or gangrene 07/01/2015 08/26/2017 Well adult exam 01/09/2015 03/15/2018 Overview: last done 01/09/2015 Aneurysm of abdominal aorta 01/11/2012 01/12/2013 documented as of this encounter (statuses as of 12/31/2023) [facility]* Problem Noted Date Diagnosed Date Resolved Date DDD (degenerative disc disease), lumbar 08/26/2017 03/15/2018 Lumbar radiculopathy 08/26/2017 018 Recurrent ventral incisional hernia 07/01/2015 08/26/2017 Unilateral inguinal hernia w ithout obstruction or gangrene 07/01/2015 08/26/2017 Well adult exam 01/09/2015 03/15/2018 Overview: last done 01/09/2015 Aneurysm of abdominal aorta 01/11/2012 01/12/2013 documented as of this encounter (statuses as of 01/05/2024) [facility] Diagnosis Onset Date Resolution Status 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 Abdominal aortic 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 Essential hypertension chron ic Hyperlipidemia [facility] Work Phone: Evaluation note* Diagnosis BENIGN HYPERTENSION- Primary Essential hypertension, benign documented in this encounter [facility]* Diagnosis Cough- Primary Acute upper respiratory infection, unspecified documented in this encounter [facility] note* Diagnosis Other hyperlipidemia documented in this encounter [facility] note* Diagnosis BENIGN HYPERTENSION Essential hypertension, benign Chronic diastolic CHF (congestive heart failure) (HCC) Chronic diastolic heart failure documented in this encounter [facility] note* Diagnosis Loose stools- Primary Abnormal feces documented in this encounter [facility] note* Diagnosis Diarrhea, unspecified type- Primary Chronic diastolic CHF (congestive heart failure) (HCC) Chronic diastolic heart failure Abdominal aortic aneurysm (AAA) without rupture, unspecified part (HCC) documented in this encounter [facility] note* Diagnosis Diarrhea, unspecified type documented in this encounter [facility] noteNo assessment information availableWParkview Health Work Phone: Evaluation note* Diagnosis Acute maxillary sinusitis, recurrence not specified- Primary Acute otitis media, right Unspecified otitis media documented in this encounter [facility] note* Diagnosis Primary hypertension- Primary Unspecified essential hypertension Abdominal aortic aneurysm (AAA) without rupture, unspecified part (HCC) documented in this encounter [facility] note* Diagnosis Onset Date Resolution Status Abdominal aortic 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 Chronic renal failure, stage 3 (moderate) chronic Aneurysm, 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 Chronic renal failure, stage 3 (moderate) chronic Abdominal aortic 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 [facility] Work Phone: Evaluation note* Diagnosis Primary hypertension- Primary Unspecified essential hypertension S/P AAA repair Other postprocedural status documented in this encounter [facility] note* Diagnosis Onset Date Resolution Status Abdominal aortic 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 Chronic renal failure, stage 3 (moderate) chronic Aneurysm, 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 Chronic renal failure, stage 3 (moderate) chronic Abdominal aortic 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 Aneurysm, 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 [facility] Work Phone: Evaluation note* Diagnosis Stage 3 chronic kidney disease, unspecified whether stage 3a or 3b CKD (HCC)- Primary documented in this encounter [facility] note* Diagnosis BENIGN HYPERTENSION Essential hypertension, benign Chronic diastolic CHF (congestive heart failure) (HCC) Chronic diastolic heart failure documented in this encounter [facility] note* Diagnosis Onset Date Resolution Status Aneurysm, 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 Chronic renal failure, stage 3 (moderate) chronic [facility] Work Phone: Evaluation note* Diagnosis Medicare annual wellness visit, subsequent- Primary Routine general medical examination at a health care facility [facility] Encounter for other preprocedural examination- Primary [facility] Diagnosis Primary hypertension- Primary Unspecified essential hypertension Allergic rhinitis, unspecified seasonality, unspecified trigger Chronic diastolic CHF (congestive heart failure) (HCC) Chronic diastolic heart failure Stage 3a chronic kidney disease (HCC) Other hyperlipidemia Abdominal aortic aneurysm (AAA) without rupture, unspecified part (HCC) [facility] Diagnosis 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)- Primary S/P carotid endarterectomy right Other postprocedural status Mixed hyperlipidemia BPH with urinary obstruction Hypertrophy of prostate with urinary obstruction and other lower urinary tract symptoms (LUTS) Stage 3a chronic kidney disease (HCC) Chronic diastolic CHF (congestive heart failure) (HCC) Chronic diastolic heart failure [facility] Acute pain of both shoulders- Primary Acute pain of both shoulders [facility] BENIGN HYPERTENSION Essential hypertension, benign [facility] Diagnosis Chronic right shoulder pain- Primary Pain in joint, shoulder region [facility] Diagnosis Primary hypertension Unspecified essential hypertension [facility] Diagnosis Dizziness- Primary Dizziness and giddiness Chronic diastolic CHF (congestive heart failure) (HCC) Chronic diastolic heart failure BENIGN HYPERTENSION Essential hypertension, benign Weight loss Loss of weight Fatigue, unspecified type History of anemia Personal history of diseases of blood and blood-forming organs [facility] Diagnosis Acute pain of both shoulders [facility] Diagnosis TIA (transient ischemic attack)- Primary Unspecified transient cerebral ischemia S/P carotid endarterectomy right Other postprocedural status Chronic diastolic CHF (congestive heart failure) (HCC) Chronic diastolic heart failure Stage 3b chronic kidney disease (HCC) Thrombocytopenia (HCC) Thrombocytopenia, unspecified Abnormal TSH Other abnormal clinical finding Mixed hyperlipidemia [facility] Diagnosis Diarrhea, unspecified type [facility] Diagnosis Procedure not carried out- Primary Procedure not carried out for other reasons [facility] Diagnosis Spigelian hernia- Primary Other ventral hernia without mention of obstruction or gangrene 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 Other postprocedural status Pancreatic cyst Cyst and pseudocyst of pancreas Splenomegaly [facility] Diagnosis Medicare annual wellness visit, subsequent- Primary Routine general medical examination at a [facility] facility Hypothyroidism, unspecified type TIA (transient ischemic attack) Unspecified transient cerebral ischemia Mixed hyperlipidemia Primary hypertension Unspecified essential hypertension Screening for depression Encounter for screening examination for other mental health and behavioral disorders Spigelian hernia Other ventral hernia without mention of obstruction or gangrene Stage 3b chronic kidney disease (HCC) [facility] Diagnosis Subclinical hypothyroidism- Primary Other specified acquired hypothyroidism [facility] Diagnosis Primary hypertension Unspecified essential hypertension [facility] Diagnosis Abrasion of head, initial encounter- Primary [facility] Diagnosis Contusion of scalp, subsequent encounter- Primary Fall, subsequent encounter Proximal leg weakness Other musculoskeletal symptoms referable to limbs [facility] Diagnosis Fall, subsequent encounter- Primary Contusion of scalp, subsequent encounter Proximal leg weakness Other musculoskeletal symptoms referable to limbs [facility] Diagnosis Fall, subsequent encounter- Primary Proximal leg weakness Other musculoskeletal symptoms referable to limbs Contusion of scalp, subsequent encounter [facility]* Diagnosis Procedure not carried out- Primary Procedure not carried out for other reasons [facility] Diagnosis Left lower quadrant abdominal pain- Primary [facility] Diagnosis Left lower quadrant abdominal pain [facility] Diagnosis Essential hypertension- Primary Unspecified essential hypertension Chronic diastolic CHF (congestive heart failure) (HCC) Chronic diastolic heart failure [facility] Diagnosis Fall, subsequent encounter- Primary Proximal leg weakness Other musculoskeletal symptoms referable to limbs Contusion of scalp, subsequent encounter [facility] Diagnosis Fall, subsequent encounter- Primary Proximal leg weakness Other musculoskeletal symptoms referable to limbs Contusion of scalp, subsequent encounter [facility] Diagnosis 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 Chronic diastolic CHF (congestive heart failure) (HCC) Chronic diastolic heart failure Stage 3b chronic kidney disease (HCC) Essential hypertension Unspecified essential hypertension [facility] Diagnosis Essential hypertension Unspecified essential hypertension [facility] Diagnosis Proximal leg weakness- Primary Other musculoskeletal symptoms referable to limbs [facility] Diagnosis Proximal leg weakness- Primary Other musculoskeletal symptoms referable to limbs Fall, subsequent encounter Contusion of scalp, subsequent encounter [facility] Diagnosis Proximal leg weakness- Primary Other musculoskeletal symptoms referable to limbs Fall, subsequent encounter Contusion of scalp, subsequent encounter [facility] Diagnosis Proximal leg weakness- Primary Other musculoskeletal symptoms referable to limbs Fall, subsequent encounter Contusion of scalp, subsequent encounter [facility] Diagnosis BENIGN HYPERTENSION Essential hypertension, benign [facility]* Diagnosis Chronic diastolic CHF (congestive heart failure) (HCC) Chronic diastolic heart failure [facility]* Diagnosis Heart failure, unspecified HF chronicity, unspecified heart failure type (HCC)- Primary [facility]* Diagnosis 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 [facility] Diagnosis Subclinical hypothyroidism- Primary Other specified acquired hypothyroidism Fatigue, unspecified type Type II endoleak of aortic graft Anemia of chronic disease Anemia of other chronic disease Stage 3b chronic kidney disease (HCC) Essential hypertension Unspecified essential hypertension Chronic diastolic CHF (congestive heart failure) (HCC) Chronic diastolic heart failure [facility]* Diagnosis Encounter for preprocedural laboratory examination- Primary Type II endoleak of aortic graft [facility] Diagnosis 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 [facility]* Diagnosis Essential hypertension Unspecified essential hypertension [facility]* Diagnosis Fatigue, unspecified type- Primary Essential hypertension Unspecified essential hypertension Chronic diastolic CHF (congestive heart failure) (HCC) Chronic diastolic heart failure Anemia, unspecified type Subclinical hypothyroidism Other specified acquired hypothyroidism documented in this encounter [facility] Discharge instructions Additional Instructions 1. Take antibiotics until gone. 2 if you develop a fever, your pain becomes worse and spite of the antibiotics or unable to eat or drink anything return to the [facility] Work Phone: Reason for referral (narrative)* Outpatient Procedure (Routine) - Authorized Specialty Diagnoses / Procedures Referred By Contac t Referred To Contact [facility] Diagnoses Diarrhea, unspecified type Procedures COLONOSCOPY DIAGNOSTIC COLONOSCOPY FLX DX W/COLLJ SPEC WHEN PFRMD Lisa Rodriguez MD [address] [place] [address] [facility] [address] [place] [address] Referral ID Status Reason Start Date Expiration Date Visits Requested Visits Authorized [id number] Authorized Auto-Generat ed Referral 01/07/2023 01/08/2024 1 1 [facility] for referral (narrative)* Diagnostic Procedure Only (Urgent) - Closed Specialty Diagnoses / Procedures Referred By Contac t Referred To Contact XR IMAGING Diagnoses Acute pain of both shoulders Procedures XR SHOULDER GENERAL 3V OR MORE AP/TRUE AP/OTHER LEFT RADEX SHOULDER COMPLETE MINIMUM 2 VIEWS Ayla Carrasquillo PA-C [address] [place] [address] [place] [id number] Referral ID Status Reason Start Date Expiration Date V isits Requested Visits Authorized [id number] Closed Auto-Generate d Referral 02/09/2024 03/10/2025 1 1 * Diagnostic Procedure Only (Urgent) - Closed Specialty Diagnoses / Procedures Referred By Contac t Referred To Contact XR IMAGING Diagnoses Acute pain of both shoulders Procedures XR SHOULDER GENERAL 3V OR MORE AP/TRUE AP/OTHER RIGHT RADEX SHOULDER COMPLETE MINIMUM 2 VIEWS Ayla Carrasquillo PA-C [address] [place] [address] [place] [id number] Referral ID Status Reason Start Date Expiration Date V isits Requested Visits Authorized [id number] Closed Auto-Generate d Referral 02/09/2024 03/10/2025 1 1 [facility] for referral (narrative)* Outpatient Procedure (Routine) - Closed Specialty Diagnoses / Procedures Referred By Contac t Referred To Contact [facility] Diagnoses Diarrhea, unspecified type Procedures COLONOSCOPY DIAGNOSTIC COLONOSCOPY FLX DX W/COLLJ SPEC WHEN Lisa Pryor MD [address] [place] [address] [facility] [address] [place] [address] Referral ID Status Reason Start Date Expiration Date V isits Requested Visits Authorized [id number] Closed Auto-Generate d Referral 01/07/2023 01/08/2024 1 1 [facility] for referral (narrative)No reason for referral information availableWParkview Health Work Phone: Reason for visit Narrative* Diagnostic Procedure Only (Urgent) - Closed Specialty Diagnoses / Procedures Referred By Contac t Referred To Contact XR IMAGING Diagnoses Acute pain of both shoulders Procedures XR SHOULDER GENERAL 3V OR MORE AP/TRUE AP/OTHER LEFT RADEX SHOULDER COMPLETE MINIMUM 2 VIEWS Ayla Carrasquillo PA-C [address] [place] [address] [place] [id number] Referral ID Status Reason Start Date Expiration Date V isits Requested Visits Authorized [id number] Closed Auto-Generate d Referral 02/09/2024 03/10/2025 1 1 [facility] for visit Narrative* Outpatient Procedure (Routine) - Closed Specialty Diagnoses / Procedures Referred By Contac t Referred To Contact [facility] Diagnoses Diarrhea, unspecified type Procedures COLONOSCOPY DIAGNOSTIC COLONOSCOPY FLX DX W/COLLJ SPEC WHEN PFRMD Lisa Rodriguez MD [address] [facility] [place] [address] [facility] [address] [place] [address] Referral ID Status Reason Start Date Expiration Date V isits Requested Visits Authorized [id number] Closed Auto-Generate d Referral 01/07/2023 01/08/2024 1 1 [facility] for visit Narrative* MRI/CT (Routine) - Closed Specialty Diagnoses / Procedures Referred By Contac t Referred To Contact CT IMAGING Diagnoses LLQ abdominal pain Left lower quadrant abdominal pain Procedures CT ABD/PEL W IVCON CT ABD & PELVIS W/CONTRAST Darya Borden, ADZ WORKER.SHUTTLECOCK FEATHER TRIMMER [address] [place] [address] Phone: tel: fax: [place] [id number] Referral ID Status Reason Start Date Expiration Date V isits Requested Visits Authorized [id number] Closed Auto-Generate d Referral 11/27/2024 12/27/2025 1 1 [facility] for visit Narrative* MRI/CT (Routine) - Closed Specialty Diagnoses / Procedures Referred By Contac t Referred To Contact CT IMAGING Diagnoses LLQ abdominal pain Left lower quadrant abdominal pain Procedures CT ABD/PEL W IVCON CT ABD & PELVIS W/CONTRAST Darya Borden, ADZ WORKER.SHUTTLECOCK FEATHER TRIMMER [address] [place] [address] Phone: tel: fax: [place] [id number] Referral ID Status Reason Start Date Expiration Date V isits Requested Visits Authorized [id number] Closed Auto-Generate d Referral 11/27/2024 12/27/2025 1 1 [facility] for visit Narrative* Imaging (Routine) - Closed Specialty Diagnoses / Procedures Referred By Contac t Referred To Contact Radiology Diagnoses Type II endoleak of aortic graft Procedures IR Ana Arthur MD [address] [place] [address] Phone: tel: fax: Referral ID Status Reason Start Date Expiration Date Visits Re quested Visits Authorized [id number] Closed 03/01/2025 03/01/2026 1 1 [facility] Summary Purpose Family History No Family [...] Documents on File Type Date Recorded 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 Advance Directives and Living Will Power of Foreign Exchange Student Coordinator Documents on File Type Date Recorded 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 Advance Directive(s) Advance Directive(s) 05/21/2020 7:47 AM Advance Directive(s) 05/09/2020 2:53 PM Advance Directive Response Recorded Date/ Time Advance Directives Yes October 11, 2016 3:05pm Living Will Yes January 20, 2021 8: 52pm Power of Foreign Exchange Student Coordinator Yes January 20, 2021 8:52pm Advance Directive Response Recorded Date/ Time Name of Medical Power of Foreign Exchange Student Coordinator Libra April 07, 2023 10:14am Advance Directives Yes October 11, 2016 3:05pm Living Will Yes April 07, 2023 10:14am Power of Foreign Exchange Student Coordinator Yes April 07 10:14am Advance Directive Response Recorded Date/ Time Advance Directives Yes October 11, 2016 2:05pm Living Will Yes April 07, 2023 9:14am Power of Foreign Exchange Student Coordinator Yes April 07 9:14am Advance Directive Response Recorded Date/ Time Advance Directives Yes October 11, 2016 3:05pm Living Will Yes April 07, 2023 10:14am Power of Foreign Exchange Student Coordinator Yes April 07 10:14am Date Activated Date Inactivated Comments 11/28/2024 9:51 PM Date Activated Date Inactivated Comments 11/28/2024 9:51 PM Question Answer Comments Full Code Order Discussed With: Patient Advance Directive Response Recorded Date/ Time Living Will Yes August 11 1:26pm Power of Foreign Exchange Student Coordinator Yes August 11, 2024 1:26pm Name of Medical Power of Foreign Exchange Student Coordinator August 11, 2024 1:26pm Living Will Yes November 28, 2024 5:58pm Power of Foreign Exchange Student Coordinator Yes November 28 5:58pm Name of Medical Power of Foreign Exchange Student Coordinator Libra Camejo November 28, 2024 5:58pm Advance Directives Yes October 11, 2016 3:05pm Advance Directive Response Recorded Date/ Time Do you have a Healthcare Power of Foreign Exchange Student Coordinator? No January 12, 2025 10:29am Living Will Yes November 28, 2024 5:58pm Do you have a Healthcare Power of Foreign Exchange Student Coordinator? Yes November 28, 2024 5:58pm Name of Medical Power of Foreign Exchange Student Coordinator Libra Camejo November 28, 2024 5:58pm Advance Directives Yes October 11, 2016 3:05pm Advance Directive Response Recorded Date/ Time Do you have a Healthcare Power of Foreign Exchange Student Coordinator? No January 12, 2025 10:29am Advance Directives on File Yes January 192024 9:53am Living Will Yes February 14, 2025 9 :53am Do you have a Healthcare Power of Foreign Exchange Student Coordinator? Yes February 14, 2025 9:53am Name of Medical Power of Foreign Exchange Student Coordinator Libra (Spouse) February 14, 2025 9:53am Advance Directives Yes February 14 9:53am Living Will Yes November 28, 2024 5:58pm Do you have a Healthcare Power of Foreign Exchange Student Coordinator? Yes November 28, 2024 5:58pm Name of Medical Power of Foreign Exchange Student Coordinator Libra Camejo November 28, 2024 5:58pm Advance Directive Response Recorded Date/ Time Do you have a Healthcare Power of Foreign Exchange Student Coordinator? No January 12, 2025 10:29am Advance Directives on File Yes January 192024 9:53am Living Will Yes February 14, 2025 9 :53am Do you have a Healthcare Power of Foreign Exchange Student Coordinator? Yes February 14, 2025 9:53am Name of Medical Power of Foreign Exchange Student Coordinator Libra (Spouse) February 14, 2025 9:53am Advance Directives Yes February 14 9:53am Advance Directive Response Recorded Date/ Time Advance Directives on File Yes January 192024 9:53am Living Will Yes February 14, 2025 9 :53am Do you have a Healthcare Power of Foreign Exchange Student Coordinator? Yes February 14, 2025 9:53am Name of Medical Power of Foreign Exchange Student Coordinator Libra (Spouse) February 14, 2025 9:53am Advance [...] your doctor if you can take an rogg-pel-ztiykew medicine. If you think your pain medicine [...] of: July 26, 2018 Content Version: 12. [facility]. Care instructions adapted under license by [employer]. If youhave questions about a medical condition or this instruction, always ask your healthcare professional. [facility] disclaims any warranty or liability for your use of this information. If you have any questions or problems following your test, please call: [phone] (7AM - 4PM) or after 4PM call [phone] and ask for the angiography radiologist rehabilitation supervisor documented in this encounter History of Present [...] EDT Patient arrived to CT department from [facility] for a Rt. Hip/ psoas aspiration. Dr. Quevedo in to discuss procedure with patient and informed consent obtained. Patient assisted to CT table . supervisor toy assembly on. 10 ccs red fluid removed from rt. Hip/ psoas sent to lab Bandaid applied to site. Patient tolerated procedure well. Report called to Lolly Menjivar and patient transferred to bed 40 [facility]. documented in this encounter Assessments Diagnosis Pain [...] rupture Chief Complaint AAA 7-20 AAA Yearly [place] F/U Discuss Imaging SEE ORDER Reason for [...] February 27, 2025 2:40pm FU from IR [facility] April 18, 2025 4:16 pm Reason for [...] February 27, 2025 2:40pm FU from IR [facility] April 18, 2025 4:16 pm AAA, S/P [...] FU February 27, 2025 2:40pm FU from [facility] April 18, 2025 4:16 pm AAA, S/P [...] FU February 27, 2025 2:40pm FU from [facility] April 18, 2025 4:16 pm AAA, S/P [...] MTRL W/WO CNTRST IMGES Shaun Kowalski MD [address] [place] [address] Ct Imaging [place] [address] Referral ID Status Reason Start Date Expiration Date Visits Requested Visits Authorized [id number] Authorized Auto-Generat ed Referral 01/05/2024 02/03/2025 1 1 Specialty Diagnoses / Procedures Referred By Contac t Referred To Contact CT IMAGING Diagnoses Encounter for other preprocedural examination Procedures CTA CHEST (NONGATED) WO/W IVCON CT ANGIOGRAPHY CHEST W/CONTRAST/NONCONTRAST Shaun Kowalski MD [address] [place] [address] Ct Imaging [place] [address] Referral ID Status Reason Start Date Expiration Date Visits Requested Visits Authorized [id number] Authorized Auto-Generat ed Referral 01/05/2024 02/03/2025 1 1 Specialty Diagnoses / Procedures Referred By Contac t Referred To Contact Orthopedics Diagnoses Acute pain of both shoulders Procedures CONSULT TO ORTHOPAEDICS OFFICE/OUTPATIENT [facility] 60 MINUTES Ayla Carrasquillo PA-C [address] [place] [address] Referral ID Status Reason Start Date Expiration Date Visits Requested Visits Authorized [id number] Authorized PCP Requested Referral 02/09/2024 02/08/2025 1 1 Specialty Diagnoses / Procedures Referred By Contac t Referred To Contact XR IMAGING Diagnoses Acute pain of both shoulders Procedures XR SHOULDER GENERAL 3V OR MORE AP/TRUE AP/OTHER LEFT RADEX SHOULDER COMPLETE MINIMUM 2 VIEWS Ayla Carrasquillo PA-C [address] [place] [address] [place] [address] Referral ID Status Reason Start Date Expiration Date V isits Requested Visits Authorized [id number] Closed Auto-Generate d Referral 02/09/2024 03/10/2025 1 1 Specialty Diagnoses / Procedures Referred By Contac t Referred To Contact XR IMAGING Diagnoses Acute pain of both shoulders Procedures XR SHOULDER GENERAL 3V OR MORE AP/TRUE AP/OTHER RIGHT RADEX SHOULDER COMPLETE MINIMUM 2 VIEWS Ayla Carrasquillo PA-C [address] [place] [address] [place] [address] Referral ID Status Reason Start Date Expiration Date V isits Requested Visits Authorized [id number] Closed Auto-Generate d Referral 02/09/2024 03/10/2025 1 1 Specialty Diagnoses / Procedures Referred By Contac t Referred To Contact Vascular Surgery Diagnoses 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 Procedures CONSULT TO VASCULAR SURGERY Dalals Reed MD [address] [place] [address] Referral ID Status Reason Start Date Expiration Date Visits Requested Visits Authorized [id number] Ref Not Required PCP Requested Referral 4 07/17/2025 1 1 Specialty Diagnoses / Procedures Referred By Contac t Referred To Contact General Surgery Diagnoses Spigelian hernia Pancreatic cyst Procedures CONSULT TO GENERAL SURGERY Dallas Reed MD [address] [place] [address] Referral ID Status Reason Start Date Expiration Date Visits Requested Visits Authorized [id number] Ref Not Required PCP Requested Referral 07/17/2025 1 1 Additional Source Comments (unrecognized sect ion and content) No Status Records FoundNo Status Records FoundNo Status Records FoundNo Status Records FoundNo Status Records FoundNo Status Records FoundNo Status Records Found INFORMATION SOURCE (unrecogn ized section and content) DATE CREATED AUTHOR 03/10/2018 [facility] DATE CREATED AUTHOR AUTHOR'S ORGANIZ ATION 03/10/2018 [place] [facility] DATE CREATED AUTHOR AUTHOR'S ORGANIZ ATION 06/20/2019 [facility] ([place]) DATE CREATED AUTHOR AUTHOR'S ORGANIZ ATION 07/24/2019 [facility] DATE CREATED AUTHOR AUTHOR'S ORGANIZ ATION 03/22/2025 [facility] DATE CREATED AUTHOR AUTHOR'S ORGANIZ ATION 05/19/2025 [facility] DATE CREATED AUTHOR AUTHOR'S ORGANIZ ATION 05/20/2025 [facility] Source Comments (unrecognize d section and content) In the event this informatio n is protected by the Federal Confidentiality of Alcohol and Drug Abuse Patient Records regulations: The Federal rules restrict any use of the information to criminally investigate or prosecute any alcohol or drug abuse patient.[facility] the event this information is protected by the Federal Confidentiality of Alcohol and Drug Abuse Patient Records regulations: The Federal rules restrict any use of the information to criminally investigate or prosecute any alcohol or drug abuse patient.[facility] CenterIn the event this information is protected by the Federal Confidentiality of Alcohol and Drug Abuse Patient Records regulations: The Federal rules restrict any use of the information to criminally investigate or prosecute any alcohol or drug abuse patient.[facility] CenterIn the event this information is protected by the Federal Confidentiality of Alcohol and Drug Abuse Patient Records regulations: The Federal rules restrict any use of the information to criminally investigate or prosecute any alcohol or drug abuse patient.[facility] CenterIn the event this information is protected by the Federal Confidentiality of Alcohol and Drug Abuse Patient Records regulations: The Federal rules restrict any use of the information to criminally investigate or prosecute any alcohol or drug abuse patient.[facility] CenterIn the event this information is protected by the Federal Confidentiality of Alcohol and Drug Abuse Patient Records regulations: The Federal rules restrict any use of the information to criminally investigate or prosecute any alcohol or drug abuse patient.[facility] CenterIn the event this information is protected by the Federal Confidentiality of Alcohol and Drug Abuse Patient Records regulations: The Federal rules restrict any use of the information to criminally investigate or prosecute any alcohol or drug abuse patient.[facility] CenterIn the event this information is protected by the Federal Confidentiality of Alcohol and Drug Abuse Patient Records regulations: The Federal rules restrict any use of the information to criminally investigate or prosecute any alcohol or drug abuse patient.[facility] CenterIn the event this information is protected by the Federal Confidentiality of Alcohol and Drug Abuse Patient Records regulations: The Federal rules restrict any use of the information to criminally investigate or prosecute any alcohol or drug abuse patient.[facility] CenterIn the event this information is protected by the Federal Confidentiality of Alcohol and Drug Abuse Patient Records regulations: The Federal rules restrict any use of the information to criminally investigate or prosecute any alcohol or drug abuse patient.[facility] CenterIn the event this information is protected by the Federal Confidentiality of Alcohol and Drug Abuse Patient Records regulations: The Federal rules restrict any use of the information to criminally investigate or prosecute any alcohol or drug abuse patient.[facility] CenterIn the event this information is protected by the Federal Confidentiality of Alcohol and Drug Abuse Patient Records regulations: The Federal rules restrict any use of the information to criminally investigate or prosecute any alcohol or drug abuse patient.[facility] CenterIn the event this information is protected by the Federal Confidentiality of Alcohol and Drug Abuse Patient Records regulations: The Federal rules restrict any use of the information to criminally investigate or prosecute any alcohol or drug abuse patient.[facility] CenterIn the event this information is protected by the Federal Confidentiality of Alcohol and Drug Abuse Patient Records regulations: The Federal rules restrict any use of the information to criminally investigate or prosecute any alcohol or drug abuse patient.[facility] CenterIn the event this information is protected by the Federal Confidentiality of Alcohol and Drug Abuse Patient Records regulations: The Federal rules restrict any use of the information to criminally investigate or prosecute any alcohol or drug abuse patient.[facility] CenterIn the event this information is protected by the Federal Confidentiality of Alcohol and Drug Abuse Patient Records regulations: The Federal rules restrict any use of the information to criminally investigate or prosecute any alcohol or drug abuse patient.[facility] CenterIn the event this information is protected by the Federal Confidentiality of Alcohol and Drug Abuse Patient Records regulations: The Federal rules restrict any use of the information to criminally investigate or prosecute any alcohol or drug abuse patient.[facility] CenterIn the event this information is protected by the Federal Confidentiality of Alcohol and Drug Abuse Patient Records regulations: The Federal rules restrict any use of the information to criminally investigate or prosecute any alcohol or drug abuse patient.[facility] CenterIn the event this information is protected by the Federal Confidentiality of Alcohol and Drug Abuse Patient Records regulations: The Federal rules restrict any use of the information to criminally investigate or prosecute any alcohol or drug abuse patient.[facility] CenterIn the event this information is protected by the Federal Confidentiality of Alcohol and Drug Abuse Patient Records regulations: The Federal rules restrict any use of the information to criminally investigate or prosecute any alcohol or drug abuse patient.[facility] CenterIn the event this information is protected by the Federal Confidentiality of Alcohol and Drug Abuse Patient Records regulations: The Federal rules restrict any use of the information to criminally investigate or prosecute any alcohol or drug abuse patient.[facility] CenterIn the event this information is protected by the Federal Confidentiality of Alcohol and Drug Abuse Patient Records regulations: The Federal rules restrict any use of the information to criminally investigate or prosecute any alcohol or drug abuse patient.[facility] CenterIn the event this information is protected by the Federal Confidentiality of Alcohol and Drug Abuse Patient Records regulations: The Federal rules restrict any use of the information to criminally investigate or prosecute any alcohol or drug abuse patient.[facility] CenterIn the event this information is protected by the Federal Confidentiality of Alcohol and Drug Abuse Patient Records regulations: The Federal rules restrict any use of the information to criminally investigate or prosecute any alcohol or drug abuse patient.[facility] CenterIn the event this information is protected by the Federal Confidentiality of Alcohol and Drug Abuse Patient Records regulations: The Federal rules restrict any use of the information to criminally investigate or prosecute any alcohol or drug abuse patient.[facility] CenterIn the event this information is protected by the Federal Confidentiality of Alcohol and Drug Abuse Patient Records regulations: The Federal rules restrict any use of the information to criminally investigate or prosecute any alcohol or drug abuse patient.[facility] CenterIn the event this information is protected by the Federal Confidentiality of Alcohol and Drug Abuse Patient Records regulations: The Federal rules restrict any use of the information to criminally investigate or prosecute any alcohol or drug abuse patient.[facility] CenterIn the event this information is protected by the Federal Confidentiality of Alcohol and Drug Abuse Patient Records regulations: The Federal rules restrict any use of the information to criminally investigate or prosecute any alcohol or drug abuse patient.[facility] CenterIn the event this information is protected by the Federal Confidentiality of Alcohol and Drug Abuse Patient Records regulations: The Federal rules restrict any use of the information to criminally investigate or prosecute any alcohol or drug abuse patient.[facility] CenterIn the event this information is protected by the Federal Confidentiality of Alcohol and Drug Abuse Patient Records regulations: The Federal rules restrict any use of the information to criminally investigate or prosecute any alcohol or drug abuse patient.[facility] CenterIn the event this information is protected by the Federal Confidentiality of Alcohol and Drug Abuse Patient Records regulations: The Federal rules restrict any use of the information to criminally investigate or prosecute any alcohol or drug abuse patient.[facility] CenterIn the event this information is protected by the Federal Confidentiality of Alcohol and Drug Abuse Patient Records regulations: The Federal rules restrict any use of the information to criminally investigate or prosecute any alcohol or drug abuse patient.[facility] CenterIn the event this information is protected by the Federal Confidentiality of Alcohol and Drug Abuse Patient Records regulations: The Federal rules restrict any use of the information to criminally investigate or prosecute any alcohol or drug abuse patient.[facility] CenterIn the event this information is protected by the Federal Confidentiality of Alcohol and Drug Abuse Patient Records regulations: The Federal rules restrict any use of the information to criminally investigate or prosecute any alcohol or drug abuse patient.[facility] CenterIn the event this information is protected by the Federal Confidentiality of Alcohol and Drug Abuse Patient Records regulations: The Federal rules restrict any use of the information to criminally investigate or prosecute any alcohol or drug abuse patient.[facility] CenterIn the event this information is protected by the Federal Confidentiality of Alcohol and Drug Abuse Patient Records regulations: The Federal rules restrict any use of the information to criminally investigate or prosecute any alcohol or drug abuse patient.[facility] CenterIn the event this information is protected by the Federal Confidentiality of Alcohol and Drug Abuse Patient Records regulations: The Federal rules restrict any use of the information to criminally investigate or prosecute any alcohol or drug abuse patient.[facility] CenterIn the event this information is protected by the Federal Confidentiality of Alcohol and Drug Abuse Patient Records regulations: The Federal rules restrict any use of the information to criminally investigate or prosecute any alcohol or drug abuse patient.[facility] CenterIn the event this information is protected by the Federal Confidentiality of Alcohol and Drug Abuse Patient Records regulations: The Federal rules restrict any use of the information to criminally investigate or prosecute any alcohol or drug abuse patient.[facility] CenterIn the event this information is protected by the Federal Confidentiality of Alcohol and Drug Abuse Patient Records regulations: The Federal rules restrict any use of the information to criminally investigate or prosecute any alcohol or drug abuse patient.[facility] CenterIn the event this information is protected by the Federal Confidentiality of Alcohol and Drug Abuse Patient Records regulations: The Federal rules restrict any use of the information to criminally investigate or prosecute any alcohol or drug abuse patient.[facility] CenterIn the event this information is protected by the Federal Confidentiality of Alcohol and Drug Abuse Patient Records regulations: The Federal rules restrict any use of the information to criminally investigate or prosecute any alcohol or drug abuse patient.[facility] CenterIn the event this information is protected by the Federal Confidentiality of Alcohol and Drug Abuse Patient Records regulations: The Federal rules restrict any use of the information to criminally investigate or prosecute any alcohol or drug abuse patient.[facility] CenterIn the event this information is protected by the Federal Confidentiality of Alcohol and Drug Abuse Patient Records regulations: The Federal rules restrict any use of the information to criminally investigate or prosecute any alcohol or drug abuse patient.[facility] CenterIn the event this information is protected by the Federal Confidentiality of Alcohol and Drug Abuse Patient Records regulations: The Federal rules restrict any use of the information to criminally investigate or prosecute any alcohol or drug abuse patient.[facility] CenterIn the event this information is protected by the Federal Confidentiality of Alcohol and Drug Abuse Patient Records regulations: The Federal rules restrict any use of the information to criminally investigate or prosecute any alcohol or drug abuse patient.[facility] CenterIn the event this information is protected by the Federal Confidentiality of Alcohol and Drug Abuse Patient Records regulations: The Federal rules restrict any use of the information to criminally investigate or prosecute any alcohol or drug abuse patient.[facility] CenterIn the event this information is protected by the Federal Confidentiality of Alcohol and Drug Abuse Patient Records regulations: The Federal rules restrict any use of the information to criminally investigate or prosecute any alcohol or drug abuse patient.[facility] CenterIn the event this information is protected by the Federal Confidentiality of Alcohol and Drug Abuse Patient Records regulations: The Federal rules restrict any use of the information to criminally investigate or prosecute any alcohol or drug abuse patient.[facility] CenterIn the event this information is protected by the Federal Confidentiality of Alcohol and Drug Abuse Patient Records regulations: The Federal rules restrict any use of the information to criminally investigate or prosecute any alcohol or drug abuse patient.[facility] CenterIn the event this information is protected by the Federal Confidentiality of Alcohol and Drug Abuse Patient Records regulations: The Federal rules restrict any use of the information to criminally investigate or prosecute any alcohol or drug abuse patient.[facility] CenterIn the event this information is protected by the Federal Confidentiality of Alcohol and Drug Abuse Patient Records regulations: The Federal rules restrict any use of the information to criminally investigate or prosecute any alcohol or drug abuse patient.[facility] CenterIn the event this information is protected by the Federal Confidentiality of Alcohol and Drug Abuse Patient Records regulations: The Federal rules restrict any use of the information to criminally investigate or prosecute any alcohol or drug abuse patient.[facility] CenterIn the event this information is protected by the Federal Confidentiality of Alcohol and Drug Abuse Patient Records regulations: The Federal rules restrict any use of the information to criminally investigate or prosecute any alcohol or drug abuse patient.[facility] CenterIn the event this information is protected by the Federal Confidentiality of Alcohol and Drug Abuse Patient Records regulations: The Federal rules restrict any use of the information to criminally investigate or prosecute any alcohol or drug abuse patient.[facility] CenterIn the event this information is protected by the Federal Confidentiality of Alcohol and Drug Abuse Patient Records regulations: The Federal rules restrict any use of the information to criminally investigate or prosecute any alcohol or drug abuse patient.[facility] CenterIn the event this information is protected by the Federal Confidentiality of Alcohol and Drug Abuse Patient Records regulations: The Federal rules restrict any use of the information to criminally investigate or prosecute any alcohol or drug abuse patient.[facility] CenterIn the event this information is protected by the Federal Confidentiality of Alcohol and Drug Abuse Patient Records regulations: The Federal rules restrict any use of the information to criminally investigate or prosecute any alcohol or drug abuse patient.[facility] CenterIn the event this information is protected by the Federal Confidentiality of Alcohol and Drug Abuse Patient Records regulations: The Federal rules restrict any use of the information to criminally investigate or prosecute any alcohol or drug abuse patient.[facility] CenterIn the event this information is protected by the Federal Confidentiality of Alcohol and Drug Abuse Patient Records regulations: The Federal rules restrict any use of the information to criminally investigate or prosecute any alcohol or drug abuse patient.[facility] CenterIn the event this information is protected by the Federal Confidentiality of Alcohol and Drug Abuse Patient Records regulations: The Federal rules restrict any use of the information to criminally investigate or prosecute any alcohol or drug abuse patient.[facility] CenterIn the event this information is protected by the Federal Confidentiality of Alcohol and Drug Abuse Patient Records regulations: The Federal rules restrict any use of the information to criminally investigate or prosecute any alcohol or drug abuse patient.[facility] CenterIn the event this information is protected by the Federal Confidentiality of Alcohol and Drug Abuse Patient Records regulations: The Federal rules restrict any use of the information to criminally investigate or prosecute any alcohol or drug abuse patient.[facility] CenterIn the event this information is protected by the Federal Confidentiality of Alcohol and Drug Abuse Patient Records regulations: The Federal rules restrict any use of the information to criminally investigate or prosecute any alcohol or drug abuse patient.[facility] CenterIn the event this information is protected by the Federal Confidentiality of Alcohol and Drug Abuse Patient Records regulations: The Federal rules restrict any use of the information to criminally investigate or prosecute any alcohol or drug abuse patient.[facility] CenterIn the event this information is protected by the Federal Confidentiality of Alcohol and Drug Abuse Patient Records regulations: The Federal rules restrict any use of the information to criminally investigate or prosecute any alcohol or drug abuse patient.[facility] CenterIn the event this information is protected by the Federal Confidentiality of Alcohol and Drug Abuse Patient Records regulations: The Federal rules restrict any use of the information to criminally investigate or prosecute any alcohol or drug abuse patient.[facility] CenterIn the event this information is protected by the Federal Confidentiality of Alcohol and Drug Abuse Patient Records regulations: The Federal rules restrict any use of the information to criminally investigate or prosecute any alcohol or drug abuse patient.[facility] CenterIn the event this information is protected by the Federal Confidentiality of Alcohol and Drug Abuse Patient Records regulations: The Federal rules restrict any use of the information to criminally investigate or prosecute any alcohol or drug abuse patient.[facility] CenterIn the event this information is protected by the Federal Confidentiality of Alcohol and Drug Abuse Patient Records regulations: The Federal rules restrict any use of the information to criminally investigate or prosecute any alcohol or drug abuse patient.[facility] CenterIn the event this information is protected by the Federal Confidentiality of Alcohol and Drug Abuse Patient Records regulations: The Federal rules restrict any use of the information to criminally investigate or prosecute any alcohol or drug abuse patient.[facility] CenterIn the event this information is protected by the Federal Confidentiality of Alcohol and Drug Abuse Patient Records regulations: The Federal rules restrict any use of the information to criminally investigate or prosecute any alcohol or drug abuse patient.[facility] Center[facility] the event this information is protected by the Federal Confidentiality of Alcohol and Drug Abuse Patient Records regulations: The Federal rules restrict any use of the information to criminally investigate or prosecute any alcohol or drug abuse patient.[facility] CenterIn the event this information is protected by the Federal Confidentiality of Alcohol and Drug Abuse Patient Records regulations: The Federal rules restrict any use of the information to criminally investigate or prosecute any alcohol or drug abuse patient.[facility] CenterIn the event this information is protected by the Federal Confidentiality of Alcohol and Drug Abuse Patient Records regulations: The Federal rules restrict any use of the information to criminally investigate or prosecute any alcohol or drug abuse patient.[facility] CenterIn the event this information is protected by the Federal Confidentiality of Alcohol and Drug Abuse Patient Records regulations: The Federal rules restrict any use of the information to criminally investigate or prosecute any alcohol or drug abuse patient.[facility] CenterIn the event this information is protected by the Federal Confidentiality of Alcohol and Drug Abuse Patient Records regulations: The Federal rules restrict any use of the information to criminally investigate or prosecute any alcohol or drug abuse patient.[facility] CenterIn the event this information is protected by the Federal Confidentiality of Alcohol and Drug Abuse Patient Records regulations: The Federal rules restrict any use of the information to criminally investigate or prosecute any alcohol or drug abuse patient.[facility] CenterIn the event this information is protected by the Federal Confidentiality of Alcohol and Drug Abuse Patient Records regulations: The Federal rules restrict any use of the information to criminally investigate or prosecute any alcohol or drug abuse patient.[facility] CenterIn the event this information is protected by the Federal Confidentiality of Alcohol and Drug Abuse Patient Records regulations: The Federal rules restrict any use of the information to criminally investigate or prosecute any alcohol or drug abuse patient.[facility] CenterIn the event this information is protected by the Federal Confidentiality of Alcohol and Drug Abuse Patient Records regulations: The Federal rules restrict any use of the information to criminally investigate or prosecute any alcohol or drug abuse patient.[facility] CenterIn the event this information is protected by the Federal Confidentiality of Alcohol and Drug Abuse Patient Records regulations: The Federal rules restrict any use of the information to criminally investigate or prosecute any alcohol or drug abuse patient.[facility] CenterIn the event this information is protected by the Federal Confidentiality of Alcohol and Drug Abuse Patient Records regulations: The Federal rules restrict any use of the information to criminally investigate or prosecute any alcohol or drug abuse patient.[facility] CenterIn the event this information is protected by the Federal Confidentiality of Alcohol and Drug Abuse Patient Records regulations: The Federal rules restrict any use of the information to criminally investigate or prosecute any alcohol or drug abuse patient.[facility] CenterIn the event this information is protected by the Federal Confidentiality of Alcohol and Drug Abuse Patient Records regulations: The Federal rules restrict any use of the information to criminally investigate or prosecute any alcohol or drug abuse patient.[facility] CenterIn the event this information is protected by the Federal Confidentiality of Alcohol and Drug Abuse Patient Records regulations: The Federal rules restrict any use of the information to criminally investigate or prosecute any alcohol or drug abuse patient.[facility] CenterIn the event this information is protected by the Federal Confidentiality of Alcohol and Drug Abuse Patient Records regulations: The Federal rules restrict any use of the information to criminally investigate or prosecute any alcohol or drug abuse patient.[facility] CenterIn the event this information is protected by the Federal Confidentiality of Alcohol and Drug Abuse Patient Records regulations: The Federal rules restrict any use of the information to criminally investigate or prosecute any alcohol or drug abuse patient.[facility] CenterIn the event this information is protected by the Federal Confidentiality of Alcohol and Drug Abuse Patient Records regulations: The Federal rules restrict any use of the information to criminally investigate or prosecute any alcohol or drug abuse patient.[facility] Reason for Visit (unrecogniz ed section and content) Reason Comments PT Discharge Specialty Diagnoses / Procedures Referred By Contac t Referred To Contact [facility] Diagnoses Contusion of scalp, subsequent encounter Fall, subsequent encounter Proximal leg weakness Procedures CONSULT TO PHYSICAL THERAPY PHYSICAL THERAPY EVALUATION HIGH COMPLEX 45 MINS Dallas Reed MD [address] [place] [address] Phone: tel: fax: [facility] [address] [place] [address] Referral ID Status Reason Start Date Expiration Date Visits Requested Visits Authorized [id number] Authorized PCP Requested Referral Auto-Generate d Referral [...] HIGH MDM 60-74 MINUTES Dallas Reed MD [address] [place] [address] Referral ID Status Reason Start Date Expiration Date V isits Requested Visits Authorized [id number] Closed PCP Requested Referral 2023 2024 1 [...] Comments Hospital F/U Reason Onset Date Comments [facility] 06/22/2024 Engagement Call Reason Comments ER F/U Reason Onset Date Comments [facility] 07/22/2024 Chronic Disease Management Routine Call Reason Onset Date Comments [facility] 07/24/2024 Chronic Disease Management Routine Call Reason Comments Surgical Clearance Forms Reason Onset Date Comments [facility] 08/24/2024 Chronic Disease Management Routine Call Reason Onset Date Comments [facility] 08/28/2024 Chronic Disease Management Routine [...] 25, 2024 End: December 25, 2024 Dr. Dutsin Hawk MD Attending Provider Active S tart: December 25, 2024 End: December 25, 2024 Team Status: Inactive Member Role Status Dates Dr. Dallas Reed MD Primary Care Provider Active Start: January 12, 2025 End: January 12, 2025 Dr. Hernandez King MD Emergency Provider Active Sta rt: January 12, 2025 End: January 12, 2025 Waiter/Waitress Room Service Relationship Specialty Start Date End Date Dallas Reed MD [address] [facility] [place] [address] PCP - General Internal Medicine 02/10/18 Denver Elizalde, rf test technicianBuckle Sorter Internal Medicine 02/05/21 Waiter/Waitress Room Service Relationship Specialty Start Date End Date Dallas Reed MD [address] [facility] [place] [address] PCP - General Internal Medicine 02/10/18 Denver Elizalde, rf test technicianBuckle Sorter Internal Medicine 02/05/21 Waiter/Waitress Room Service Relationship Specialty Start Date End Date Dallas Reed MD [address] [facility] [place] [address] PCP - General Internal Medicine 02/10/18 Denver Elizalde, rf test technicianBuckle Sorter Internal Medicine 02/05/21 Waiter/Waitress Room Service Relationship Specialty Start Date End Date Dallas Reed MD [address] [facility] [place] [address] PCP - General Internal Medicine 02/10/18 Denver Elizalde, rf test technicianBuckle Sorter Internal Medicine 02/05/21 Waiter/Waitress Room Service Relationship Specialty Start Date End Date Dallas Reed MD [address] [facility] [place] [address] PCP - General Internal Medicine 02/10/18 Denver Elizalde, rf test technicianBuckle Sorter Internal Medicine 02/05/21 Waiter/Waitress Room Service Relationship Specialty Start Date End Date Dallas Reed MD [address] [facility] [place] [address] PCP - General Internal Medicine 02/10/18 Denver Elizalde, rf test technicianBuckle Sorter Internal Medicine 02/05/21 Waiter/Waitress Room Service Relationship Specialty Start Date End Date Dallas Reed MD [address] [facility] [place] [address] PCP - General Internal Medicine 02/10/18 Denver Elizalde, rf test technicianBuckle Sorter Internal Medicine 02/05/21 Waiter/Waitress Room Service Relationship Specialty Start Date End Date Dallas Reed MD [address] [facility] [place] [address] PCP - General Internal Medicine 02/10/18 Fide Goff, rf test technicianBuckle Sorter Internal Medicine 02/05/21 Waiter/Waitress Room Service Relationship Specialty Start Date End Date Dallas Reed MD [address] [facility] [place] [address] PCP - General Internal Medicine 02/10/18 Fide Goff, rf test technicianBuckle Sorter Internal Medicine 02/05/21 Waiter/Waitress Room Service Relationship Specialty Start Date End Date Dallas Reed MD [address] [facility] [place] [address] PCP - General Internal Medicine 02/10/18 Fide Goff, rf test technicianBuckle Sorter Internal Medicine 02/05/21 Waiter/Waitress Room Service Relationship Specialty Start Date End Date Dallas Reed MD [address] [facility] [place] [address] PCP - General Internal Medicine 02/10/18 Fide Goff, rf test technicianBuckle Sorter Internal Medicine 02/05/21 Team Status: Active Member [...] Perez MD Attending Provider, Referring Provider Active Waiter/Waitress Room Service Relationship Specialty Start Date End Date Dallas Reed MD [address] [facility] [place] [address] PCP - General Internal Medicine 02/10/18 Fide Goff, rf test technicianBuckle Sorter Internal Medicine 02/05/21 Waiter/Waitress Room Service Relationship Specialty Start Date End Date Dallas Reed MD [address] [facility] [place] [address] PCP - General Internal Medicine 02/10/18 Fide Goff, rf test technicianBuckle Sorter Internal Medicine 02/05/21 Team Status: Inactive Member [...] Dr. Dieter Christianson MD Other Provider Active Waiter/Waitress Room Service Relationship Specialty Start Date End Date Dallas Reed MD [address] [facility] [place] [address] PCP - General Internal Medicine 02/10/18 Fide Goff, rf test technicianBuckle Sorter Internal Medicine 02/05/21 Waiter/Waitress Room Service Relationship Specialty Start Date End Date Dallas Reed MD [address] [facility] [place] [address] PCP - General Internal Medicine 02/10/18 Fide Goff, rf test technicianBuckle Sorter Internal Medicine 02/05/21 Team Status: Active Member Role Status Dates Dr. Dallas Reed MD Primary Care Provider Active Dr. Donato Longoria MD Attending Provider Active Dr. Omid Perez MD Referring Provider Active Team Status: Inactive Member Role Status Dates Dr. Dallas Reed MD Primary Care Provider Active Benita PEREZ, PA-C Attending Provider, Referring Provider Active Waiter/Waitress Room Service Relationship Specialty Start Date End Date Dallas Reed MD [address] [facility] [place] [address] PCP - General Internal Medicine 02/10/18 Fide Goff, rf test technicianBuckle Sorter Internal Medicine 02/05/21 Team Status: Inactive Member Role Status Dates Dr. Dallas Reed MD Primary Care Provider Active Dr. Jovanny Rodriguez MD Attending Provider, Referring Provider Active Waiter/Waitress Room Service Relationship Specialty Start Date End Date Dallas Reed MD [address] [facility] [place] [address] PCP - General Internal Medicine 02/10/18 Fide Goff, rf test technicianBuckle Sorter Internal Medicine 02/05/21 Waiter/Waitress Room Service Relationship Specialty Start Date End Date Dallas Reed MD [address] [facility] [place] [address] PCP - General Internal Medicine 02/10/18 Fide Goff, rf test technicianBuckle Sorter Internal Medicine 02/05/21 Waiter/Waitress Room Service Relationship Specialty Start Date End Date Dallas Reed MD [address] [facility] [place] [address] PCP - General Internal Medicine 02/10/18 Fide Goff, rf test technicianBuckle Sorter Internal Medicine 02/05/21 Waiter/Waitress Room Service Relationship Specialty Start Date End Date Dallas Reed MD [address] [facility] [place] [address] PCP - General Internal Medicine 02/10/18 Fide Goff, rf test technicianBuckle Sorter Internal Medicine 02/05/21 Waiter/Waitress Room Service Relationship Specialty Start Date End Date Dallas Reed MD [address] [facility] [place] [address] PCP - General Internal Medicine 02/10/18 Fide Goff, rf test technicianBuckle Sorter Internal Medicine 02/05/21 Waiter/Waitress Room Service Relationship Specialty Start Date End Date Dallas Reed MD [address] [facility] [place] [address] PCP - General Internal Medicine 02/10/18 Fide Goff, rf test technicianBuckle Sorter Internal Medicine 02/05/21 Waiter/Waitress Room Service Relationship Specialty Start Date End Date Dallas Reed MD [address] [facility] [place] [address] PCP - General Internal Medicine 02/10/18 Fide Goff, rf test technicianBuckle Sorter Internal Medicine 02/05/21 Waiter/Waitress Room Service Relationship Specialty Start Date End Date Dallas Reed MD [address] [facility] [place] [address] PCP - General Internal Medicine 02/10/18 Fide Goff, rf test technicianBuckle Sorter Internal Medicine 02/05/21 Waiter/Waitress Room Service Relationship Specialty Start Date End Date Dallas Reed MD [address] [facility] [place] [address] PCP - General Internal Medicine 02/10/18 Fide Goff, rf test technicianBuckle Sorter Internal Medicine 02/05/21 Waiter/Waitress Room Service Relationship Specialty Start Date End Date Dallas Reed MD [address] [facility] [place] [address] PCP - General Internal Medicine 02/10/18 Fide Goff, rf test technicianBuckle Sorter Internal Medicine 02/05/21 Waiter/Waitress Room Service Relationship Specialty Start Date End Date Dallas Reed MD [address] [facility] [place] [address] PCP - General Internal Medicine 02/10/18 Fide Goff, rf test technicianBuckle Sorter Internal Medicine 02/05/21 Waiter/Waitress Room Service Relationship Specialty Start Date End Date Dallas Reed MD [address] [facility] [place] [address] PCP - General Internal Medicine 02/10/18 Fide Goff, rf test technicianBuckle Sorter Internal Medicine 02/05/21 Waiter/Waitress Room Service Relationship Specialty Start Date End Date Dallas Reed MD [address] [facility] [place] [address] PCP - General Internal Medicine 02/10/18 Fide Goff, rf test technicianBuckle Sorter Internal Medicine 02/05/21 Waiter/Waitress Room Service Relationship Specialty Start Date End Date Dallas Reed MD [address] [facility] [place] [address] PCP - General Internal Medicine 02/10/18 Fide Goff, rf test technicianBuckle Sorter Internal Medicine 02/05/21 Darya Borden, ADZ WORKER.SHUTTLECOCK FEATHER TRIMMER [address] [facility] [place] [address] [facility] 08/28/24 Waiter/Waitress Room Service Relationship Specialty Start Date End Date Dallas Reed MD [address] [facility] [place] [address] PCP - General Internal Medicine 02/10/18 Fide Goff, rf test technicianBuckle Sorter Internal Medicine 02/05/21 Darya Borden, ADZ WORKER.SHUTTLECOCK FEATHER TRIMMER [address] [facility] [place] [address] [facility] 08/28/24 Waiter/Waitress Room Service Relationship Specialty Start Date End Date Dallas Reed MD [address] [facility] [place] [address] PCP - General Internal Medicine 02/10/18 Fide Goff, rf test technicianBuckle Sorter Internal Medicine 02/05/21 Darya Borden, ADZ WORKER.SHUTTLECOCK FEATHER TRIMMER [address] [facility] [place] [address] [facility] 08/28/24 Waiter/Waitress Room Service Relationship Specialty Start Date End Date Dallas Reed MD [address] [facility] [place] [address] PCP - General Internal Medicine 02/10/18 Darya Borden, ADZ WORKER.SHUTTLECOCK FEATHER TRIMMER [address] [facility] [place] [place] [address] [facility] 08/28/24 Waiter/Waitress Room Service Relationship Specialty Start Date End Date Dallas Reed MD [address] [facility] [place] [address] PCP - General Internal Medicine 02/10/18 Darya Borden, ADZ WORKER.SHUTTLECOCK FEATHER TRIMMER [address] [facility] [place] [address] [facility] 08/28/24 Waiter/Waitress Room Service Relationship Specialty Start Date End Date Dallas Reed MD [address] [facility] [place] [address] PCP - General Internal Medicine 02/10/18 Darya Borden, ADZ WORKER.SHUTTLECOCK FEATHER TRIMMER [address] [place] [address] [facility] 08/28/24 Waiter/Waitress Room Service Relationship Specialty Start Date End Date Dallas Reed MD [address] [place] [address] PCP - General Internal Medicine 02/10/18 Darya Borden, ADZ WORKER.SHUTTLECOCK FEATHER TRIMMER [address] [place] [address] [facility] 08/28/24 Waiter/Waitress Room Service Relationship Specialty Start Date End Date Dallas Reed MD [address] [place] [address] PCP - General Internal Medicine 02/10/18 Darya Borden, ADZ WORKER.SHUTTLECOCK FEATHER TRIMMER [address] [place] [address] [facility] 08/28/24 Waiter/Waitress Room Service Relationship Specialty Start Date End Date Dallas Reed MD [address] [place] [address] PCP - General Internal Medicine 02/10/18 Darya Borden, ADZ WORKER.SHUTTLECOCK FEATHER TRIMMER [address] [place] [address] [facility] 08/28/24 Waiter/Waitress Room Service Relationship Specialty Start Date End Date Dallas Reed MD [address] [place] [address] PCP - General Internal Medicine 02/10/18 Darya Borden, ADZ WORKER.SHUTTLECOCK FEATHER TRIMMER [address] [place] [address] [facility] 08/28/24 Waiter/Waitress Room Service Relationship Specialty Start Date End Date Dallas Reed MD [address] [place] [address] PCP - General Internal Medicine 02/10/18 Darya Borden, ADZ WORKER.SHUTTLECOCK FEATHER TRIMMER [address] [place] [address] [facility] 08/28/24 Waiter/Waitress Room Service Relationship Specialty Start Date End Date Dallas Reed MD [address] [place] [address] PCP - General Internal Medicine 02/10/18 Darya Borden, ADZ WORKER.SHUTTLECOCK FEATHER TRIMMER [address] [place] [address] [facility] 08/28/24 Waiter/Waitress Room Service Relationship Specialty Start Date End Date Dallas Reed MD [address] [place] [address] PCP - General Internal Medicine 02/10/18 Darya Borden, ADZ WORKER.SHUTTLECOCK FEATHER TRIMMER [address] [place] [address] [facility] 08/28/24 Waiter/Waitress Room Service Relationship Specialty Start Date End Date Dallas Rede MD [address] [place] [address] PCP - General Internal Medicine 02/10/18 Darya Borden, ADZ WORKER.SHUTTLECOCK FEATHER TRIMMER [address] [place] [address] [facility] 08/28/24 Yessenia Price [facility] [address] [place], [place] [id number] Transitional Care Pharmacist Pharmacy 12/04/24 01/04/25 Adriane White, CHRISTIANO [facility] [address] [place] [id number] Primary Care Director Speech And Hearing 12/04/24 Waiter/Waitress Room Service Relationship Specialty Start Date End Date Dallas Reed MD [address] [place] [address] PCP - General Internal Medicine 02/10/18 Darya Borden, ADZ WORKER.SHUTTLECOCK FEATHER TRIMMER [address] [place] [address] [facility] 08/28/24 Yessenia Price [facility] [address] [place], [place] [id number] Transitional Care Pharmacist Pharmacy 12/04/24 01/04/25 Adriane White, CHRISTIANO [facility] [address] [place] [address] Primary Care Director Speech And Hearing 12/04/24 Waiter/Waitress Room Service Relationship Specialty Start Date End Date Dlalas Reed MD [address] [place] [address] PCP - General Internal Medicine 02/10/18 Darya Borden, ADZ WORKER.SHUTTLECOCK FEATHER TRIMMER [address] [place] [address] [facility] 08/28/24 Yessenia Price bell [address] [place] [id number] Transitional Care Pharmacist Pharmacy 12/04/24 01/04/25 Adriane White, RN [facility] [address] [place] [phone] Primary Care Director Speech And Hearing 12/04/24 Waiter/Waitress Room Service Relationship Specialty Start Date End Date Dallas Reed MD [address] [place] [address] PCP - General Internal Medicine 02/10/18 Darya Borden, ADZ WORKER.SHUTTLECOCK FEATHER TRIMMER [address] [place] [address] [facility] 08/28/24 Yessenia Price [facility] [address] [place], [place] [id number] Transitional Care Pharmacist Pharmacy 12/04/24 01/04/25 Adriane White, CHRISTIANO [facility] [address] [place] [phone] Primary Care Director Speech And Hearing 12/04/24 Waiter/Waitress Room Service Relationship Specialty Start Date End Date Dallas Reed MD [address] [place] [address] PCP - General Internal Medicine 02/10/18 Darya Borden, ADZ WORKER.SHUTTLECOCK FEATHER TRIMMER [address] [place] [address] [facility] 08/28/24 Yessenia Price bell [address] [place] [phone] Transitional Care Pharmacist Pharmacy 12/04/24 01/04/25 Adriane White RN [facility] [address] [place] [phone] Primary Care Director Speech And Hearing 12/04/24 Waiter/Waitress Room Service Relationship Specialty Start Date End Date Dallas Reed MD [address] [place], [place] [address] PCP - General Internal Medicine 02/10/18 Darya Borden, ADZ WORKER.SHUTTLECOCK FEATHER TRIMMER [address] [place], [place] [address] [facility] 08/28/24 Yessenia Price [facility] [address] [place] [address] Transitional Care Pharmacist Pharmacy 12/04/24 01/04/25 Adriane White RN [facility] [address] [place] [phone] Primary Care Director Speech And Hearing 12/04/24 Waiter/Waitress Room Service Relationship Specialty Start Date End Date Dallas Reed MD [address] [place], [place] [address] PCP - General Internal Medicine 02/10/18 Darya Borden, ADZ WORKER.SHUTTLECOCK FEATHER TRIMMER [address] [place], [place] [address] [facility] 08/28/24 Yessenia Price [facility] [address] [place], [place] [phone] Transitional Care Pharmacist Pharmacy 12/04/24 01/04/25 Adriane White RN [facility] [address] [place] [phone] Primary Care Director Speech And Hearing 12/04/24 Waiter/Waitress Room Service Relationship Specialty Start Date End Date Dallas Reed MD [address] [place] [address] PCP - General Internal Medicine 02/10/18 Darya Borden, ADZ WORKER.SHUTTLECOCK FEATHER TRIMMER [address] [place] [address] [facility] 08/28/24 [facility] [place] [address] Transitional Care Pharmacist Pharmacy 12/04/24 01/04/25 Adriane White, CHRISTIANO [facility] [address] [place] [phone] Primary Care Director Speech And Hearing 12/04/24 Waiter/Waitress Room Service Relationship Specialty Start Date End Date Dallas Reed MD [address] [place] [address] PCP - General Internal Medicine 02/10/18 Darya Borden, ADZ WORKER.SHUTTLECOCK FEATHER TRIMMER [address] [place] [address] [facility] 08/28/24 Yessenia Price [facility] [place] [address] Transitional Care Pharmacist Pharmacy 12/04/24 01/04/25 Adriane White, CHRISTIANO [facility] [address] [address] [place] [id number] Primary Care Director Speech And Hearing 12/04/24 Team Status: Active Member Role Status [...] November 28, 2024 End: November 28, 2024 Waiter/Waitress Room Service Relationship Specialty Start Date End Date Dallas Reed MD [address] [place] [id number] PCP - General Internal Medicine 02/10/18 Darya Borden, ADZ WORKER.SHUTTLECOCK FEATHER TRIMMER [address] [place] [id number] [facility] 08/28/24 Yessenia Price RPh [address] [place], [place] [phone] Transitional Care Pharmacist Pharmacy 12/04/24 01/04/25 Adriane White, [place] [address] Primary Care Director Speech And Hearing 12/04/24 Waiter/Waitress Room Service Relationship Specialty Start Date End Date Dallas Reed MD [address] [place] [address] PCP - General Internal Medicine 02/10/18 Darya Borden, ADZ WORKER.SHUTTLECOCK FEATHER TRIMMER [address] [place] [address] [facility] 08/28/24 [facility] [address] [place] [address] Transitional Care Pharmacist Pharmacy 12/04/24 01/04/25 Adriane White, CHRISTIANO [facility] [address] [place] [address] Primary Care Director Speech And Hearing 12/04/24 Waiter/Waitress Room Service Relationship Specialty Start Date End Date Dallas Reed MD [address] [place] [address] PCP - General Internal Medicine 02/10/18 Darya Borden, ADZ WORKER.SHUTTLECOCK FEATHER TRIMMER [address] [place] [address] [facility] 08/28/24 Yessenia Price [facility] [address] [place] [address] Transitional Care Pharmacist Pharmacy 12/04/24 01/04/25 Adriane White, CHRISTIANO [facility] [address] [place] [address] Primary Care Director Speech And Hearing 12/04/24 Waiter/Waitress Room Service Relationship Specialty Start Date End Date Dallas Reed MD [address] [place], [place] [id number] PCP - General Internal Medicine 02/10/18 Darya Borden, DUSTIN.SHUTTLECOCK FEATHER TRIMMER [address] [place] [address] [facility] 08/28/24 Adriane White, RN [facility] [address] [place] [address] Buckle Sorter 01/02/25 Team Status: Inactive Member Role Status [...] 18, 2025 End: January 18, 2025 CHRIS Orelalna Referring Provider Active Star t: January 18, [...] Provider Active Start : February 14, 2025 Waiter/Waitress Room Service Relationship Specialty Start Date End Date Dallas Reed MD [address] [place] [address] PCP - General Internal Medicine 02/10/18 Darya Borden, ADZ WORKER.SHUTTLECOCK FEATHER TRIMMER [address] [facility] [place] [address] [facility] 08/28/24 Adriane White, CHRISTIANO [facility] [address] [place] [phone] Buckle Sorter 01/02/25 Waiter/Waitress Room Service Relationship Specialty Start Date End Date Dallas Reed MD [address] [facility] [place] [address] PCP - General Internal Medicine 02/10/18 Darya Borden, ADZ WORKER.SHUTTLECOCK FEATHER TRIMMER [address] [facility] [place] [address] [facility] 08/28/24 Adriane White RN [facility] [address] [place] [address] Buckle Sorter 01/02/25 Waiter/Waitress Room Service Relationship Specialty Start Date End Date Dallas Reed MD [address] [facility] [place] [address] PCP - General Internal Medicine 02/10/18 Darya Borden, ADZ WORKER.SHUTTLECOCK FEATHER TRIMMER [address] [facility] [place] [address] [facility] 08/28/24 Adriane White RN [facility] [address] [place] [phone] Buckle Sorter 01/02/25 Team Status: Inactive Member Role Status Dates Dr. Dallas Reed MD Primary Care Provider Active Start: February 27, 2025 End: February 27, 2025 Dr. Dallas Reed MD Referring Provider Active Start: February 27, 2025 End: February 27, 2025 CHRIS Orellana Attending Provider Active Star t: February 27, 2025 End: February 27, 2025 Waiter/Waitress Room Service Relationship Specialty Start Date End Date Dallas Reed [address] [facility] [place] [address] PCP - General 07/04/19 Waiter/Waitress Room Service Relationship Specialty Start Date End Date Dallas Reed MD [address] [facility] [place] [address] PCP - General Internal Medicine 02/10/18 Darya Borden, ADZ WORKER.SHUTTLECOCK FEATHER TRIMMER [address] [facility] [place] [address] [facility] 08/28/24 Adriane White, CHRISTIANO [facility] [address] [facility] [place] [address] Buckle Sorter 01/02/25 Waiter/Waitress Room Service Relationship Specialty Start Date End Date Dallas Reed [address] [facility] [place] [address] PCP - General 07/04/19 Waiter/Waitress Room Service Relationship Specialty Start Date End Date Dallas Reed [address] [place] [address] PCP - General 07/04/19 Waiter/Waitress Room Service Relationship Specialty Start Date End Date Dallas Reed [address] [facility] [place] [address] PCP - General 07/04/19 Waiter/Waitress Room Service Relationship Specialty Start Date End Date Dallas Reed [address] [facility] [place] [address] PCP - General 07/04/19 Waiter/Waitress Room Service Relationship Specialty Start Date End Date Dallas Reed MD [address] [facility] [place] [address] PCP - General Internal Medicine 02/10/18 Darya Borden, ADZ WORKER.SHUTTLECOCK FEATHER TRIMMER [address] [facility] [place] [address] [facility] 08/28/24 Adriane White, RN [facility] [address] [place] [address] Buckle Sorter 01/02/25 Waiter/Waitress Room Service Relationship Specialty Start Date End Date Dallas Reed MD [address] [facility] [place] [address] PCP - General Internal Medicine 02/10/18 Darya Borden, ADZ WORKER.SHUTTLECOCK FEATHER TRIMMER [address] [facility] [place] [address] [facility] 08/28/24 Adriane White, RN [facility] [address] [place] [phone] Buckle Sorter 01/02/2503/20 Team Status: Active Member Role/Relationship Status [...] Status: Inactive Member Role/Relationship Status Dates Dr. aDllas Reed MD Primary Care Provider Active Start: April 30, 2025 End: April 30, 2025 Dr. Dustin Hawk MD Attending Provider Active S tart: April 30, 2025 End: April 30, 2025 Dr. Dustin Hawk MD Referring Provider Active S tart: April 30, 2025 End: April 30, 2025 Team Status: Inactive Member Role/Relationship Status Dates Dr. aDllas Reed MD Primary Care Provider Active Start: May 10, 2025 End: May 10, 2025 Dr. Dallas Reed MD Referring Provider Active Start: May 10, 2025 End: May 10, 2025 Mike Jay NP, CLIENT ADVISOR-C Attending Provider Active S tart: May 10, [...] 2025 End: May 10, 2025 Mike Jay CLIENT ADVISOR, CLIENT ADVISOR-C Attending Provider Active S tart: May 10, 2025 End: May 10, 2025 Team Status: Inactive Member Role/Relationship Status Dates Dr. Dallas Reed MD Primary Care Provider Active Start: May 10, 2025 End: May 10, 2025 Mike Jay CLIENT ADVISOR, CLIENT ADVISOR-C Attending Provider Active S tart: May 10, 2025 End: May 10, 2025 Mike Jya CLIENT ADVISOR, CLIENT ADVISOR-C Referring Provider Active S tart: May 10, 2025 End: May 10, 2025 Waiter/Waitress Room Service Relationship Specialty Start Date End Date Dallas Reed MD [address] [place] [address] PCP - General Internal Medicine 02/10/18 Darya Borden, ADZ WORKER.SHUTTLECOCK FEATHER TRIMMER [address] [place] [address] [facility] 08/28/24 Goals (unrecognized section and [...] BE BASED ON THE PRIMARY CLINICAL RECORDS. [facility]. provides no warranty or guarantee of the accuracy or completeness of information in this document.
[2025-05-21 04:11] LABS: Pro- Brain NATRIURETIC PEPTIDE 3942 pg/mL (<=1800)
[2025-05-21 04:30] LABS: Troponin T High Sens 2 HR 222 ng/L (<=22)
--- NOTE | 2025-05-21 04:57 | ECHOD_ITS ---
Reason For Study Reason For Study: s/p UT Procedure This was a 2D Doppler, Color Flow transthoracic echocardiogram. Myocardial strain analysis was performed in this exam to aid in the assessment of cardiac function. Exam performed portable in ICU/CCU. Left Ventricle Mildly dilated left ventricle. The global longitudinal strain = -9.5% (abnormal). The estimated ejection fraction is 40- 45 %. Right Ventricle Normal right ventricle. Normal systolic function. Atria Normal left atrium. The left atrium is mildly enlarged. Normal right atrium. Mitral Valve The mitral valve is structurally normal. No prolapse or stenosis seen. Mild (1+) mitral valve insufficiency. Tricuspid Valve Normal tricuspid valve. Aortic Valve Trisinus/trileaflet aortic valve. Pulmonic Valve The pulmonic valve is not well visualized. Great Vessels The aortic root is not well visualized. Pericardium/Pleural No pericardial effusion. MMode/2D Measurements & Calculations LVIDd: 4.8 cm IVSd: 2.1 cm LVOT diam: 2.1 cm LVIDs: 3.6 cm LVPWd: 1.5 cm LVOT area: 3.5 cm2 RVDd: 4.4 cm FS: 24.5 % Ao root diam: 3.3 cm LAV(MOD-bp): 58.6 ml LVAd ap4: 36.4 cm2 LAV(MOD-bp) Indexed: 33.5 ml/m2 LVLd ap4: 9.5 cm LAV(MOD-sp2): 48.8 ml EDV(MOD-sp4): 117.7 ml LAV(MOD-sp4): 61.5 ml EDV(sp4-el): 118.2 ml LVAs ap4: 27.6 cm2 LVLs ap4: 9.0 cm ESV(MOD-sp4): 72.1 ml ESV(sp4-el): 71.6 ml EF(MOD-sp4): 38.8 % EF(sp4-el): 39.4 % SV(MOD-sp4): 45.6 ml SV(sp4-el): 46.6 ml Aortic Valve Planimetry: 1.9 cm2 SI(MOD-sp4): 26.1 ml/m2 LA A4 area: 21.6 cm2 LA dimension(2D): 4.5 cm RA A4 area: 18.0 cm2 Time Measurements MV dec time: 0.19 sec Doppler Measurements & Calculations MV E max yunior: 94.4 cm/sec Lat Peak E' Yunior: 11.6 cm/sec Med Peak E' Yunior: 5.7 cm/sec MV A max yunior: 70.1 cm/sec E/E' lat: 8.1 E/E' med: 16.6 MV E/A: 1.3 MV V2 max: 101.9 cm/sec MV P1/2t max yunior: 103.9 cm/sec Ao V2 max: 169.7 cm/sec MV max P.2 mmHg MV P1/2t: 65.6 msec Ao max P.5 mmHg MV V2 mean: 60.4 cm/sec Ao V2 mean: 121.3 cm/sec MV mean P.7 mmHg MV dec slope: 463.4 cm/sec2 Ao mean P.6 mmHg MV V2 VTI: 31.9 cm MVA(P1/2t): 3.4 cm2 Ao V2 VTI: 36.3 cm AV (velocity ratio): 0.50 MVA(VTI): 2.0 cm2 FRANCIS(I,D): 1.7 cm2 FRANCIS(V,D): 1.8 cm2 LV V1 max: 85.6 cm/sec SV(LVOT): 63.5 ml TR max yunior: 289.2 cm/sec LV V1 max P.9 mmHg TR max P.5 mmHg LV V1 mean P.8 mmHg LV V1 mean: 64.7 cm/sec LV V1 VTI: 18.2 cm ECHO/Echo Complete Interpretation Summary The estimated ejection fraction is 40-45 %. Inferior hypokinesia Mild MR In comparison to previous echocardiogram reduced LV systolic function with EF m oderate. No pericardial effusion Ordering Physician: Cameron Solares Performed By: Forrest Luis RCS
--- OUTSIDE RECORDS SUMMARY | 2025-05-21 05:07 | XMS RPT_ITS | CCD ---
Author Organization [facility] Care Team Providers Care Student Services Counselor Name Role Phone SIMON MOODY Unavailable Unavailable Corey, Gavin A Unavailable Unavailable SIMON, MOODY Unavailable Unavailable SIMON, MOODY Unavailable Unavailable [facility] Unavailable Unavailable Corey, Gavin A Unavailable Unavailable SIMON, MOODY Unavailable Unavailable [facility] Unavailable Unavailable Corey, Gavin A Unavailable Unavailable SIMON, MOODY Unavailable Unavailable SIMON, MOODY E Unavailable Unavailable SIMON, MOODY E Unavailable Unavailable GAVIN HOPE A Unavailable Unavailable Dallas Reed Primary Care Provider Dallas Reed MD Primary Care Provider Denver Elizalde RN Unavailable UnavailDr. Dallas Rosen Primary Care Provider Dr. Dallas Reed Referring Provider Robbi RICHEY, SHELLIE Bishop Attending Provider Dr. Omid Perez Attending Provider Dallas Reed MD Primary Care Provider Denver Elizalde RN Unavailable UnavailDallas Rosen MD Primary Care Provider Fide Goff RN Unavailable UnavailDr. Dallas Rosen Primary Care Provider Dr. Omid Perez Attending Provider Dr. Omid Perez Referring Provider Dr. Dallas Reed Referring Provider Dr. Omid Perez Admit Provider Dr. Omid Perez Other Provider Dr. Dieter Christianson Other Provider Denver RN, Fide Durán Unavailable Suyapa Reed, Dr. Haynes Primary Care Provider Cebudriss, Dr. Omid Palomino Attending Provider Dr. Donato Longoria Attending Provider Chris, Dr. Omid Palomino Referring Provider Dr. Dallas Reed Primary Care Provider Maxime, Dr. Haynes Referring Provider Chris, Dr. Omid Palomino Attending Provider Chris, Dr. Omid Palomino Referring Provider Dallas Reed MD Primary Care Provider [facility] 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, Darya M Unavailable Broannyan [facility], Yessenia Unavailable Christopher MENJIVAR, Adriane Unavailable Keisha Reed MD, Dr. Haynes Primary Care Provider Marian LAWTON, [...] Provider Fernando LAWTON, Dr. Ng Emergency Provider [phone] Christopher MENJIVAR, Adriane Reed MD, Dr. Haynes Primary Care Provider Maxime LAWTON, Dr. Haynes Referring Provider Fernando LAWTON, Dr. Ng Attending Provider Real PA, Carine Attending Provider [phone] Real PEREZ, Carine Referring Provider [phone] Waldo LAWTON, Dr. Chan Referring Provider [phone] Waldo LAWTON, Dr. Chan Other Provider [phone] Dallas Reed Primary Care Provider ANA BOBO Attending Unavailable ANA BOBO Referring Unavailable MAXIME, DALLAS Primary Care Unavailable Christopher RN, Adriane Unavailable Unavailable Maxime LAWTON, Dr. Haynes Primary Care Provider Maxime LAWTON, Dr. Haynes Primary Care Provider Waldo LAWTON, Dr. Chan Attending Provider [phone] Maxime LAWTON, Dr. Haynes Referring Provider [facility] CHANGE CONSULTANT-C, Mike Attending Provider Maxime LAWTON, Dr. Haynes Primary Care Provider [facility] CHANGE CONSULTANT-C, Mike Shwetha Referring Provider Dustin Hawk Attending Unavailable Dustin Hawk Referring Unavailable Maxime, Dallas Primary Care Unavailable Dallas Reed Referring Unavailable Carine Noble Attending Unavailable Maxime, Dallas Primary Care Unavailable Dustin Hawk Attending Unavailable Dallas Reed Referring Unavailable Maxime, Dallas Primary Care Unavailable Veena Nelson Attending Unavailable Maxime, Dallas Primary Care Unavailable Maxime, Dallas Primary Care Unavailable Hernandez King Attending Unavailable Margy Stark Admitting Unavailable Alverto Cooley Consulting Unavailable Maxime, Dallas Primary Care Unavailable Brant Alcantara Attending Unavailable Adeli, Amir Consulting Unavailable Hinduja, Alia Consulting Unavailable Marcos, Carine Consulting Unavailable Zha, Jaky Consulting Unavailable Isabela, John Consulting Unavailable Kim, Nata Consulting Unavailable Félix Lawrence Consulting Unavailable Haider Hendrix Consulting Unavailable Jesse Anaya Consulting Unavailable Luciana Guerra Consulting Unavailable Carlos Lemus Consulting Unavailable Roula Polk Consulting Unavailable Vale Muniz Consulting Unavailable Norberto Soria Steve Consulting UnavailSupa Morales Consulting Unavailable Oden, Rami Consulting Unavailable Manuel Acevedo Consulting Unavailable Kourtney Randolph Consulting Unavailable Diogenes Ashton Consulting Unavailable Margy Stark Consulting Unavailable Robotham, Lara Attending Unavailable Robotham, Lara Referring Unavailable Reed, Dallas Primary Care Unavailable Reed, Dallas Primary Care Unavailable Nate Gray Attending Unavailable Reed, Dallsa Referring Unavailable Noble, Carine Attending Unavailable Reed, Dallas Primary Care Unavailable Roof CHANGE CONSULTANT, Mike H Attending Unavailable Roof CHANGE CONSULTANT, Mike H Referring Unavailable Reed, Dallas Primary Care Unavailable Reed, Dallas Primary Care Unavailable Noble, Carine Referring Unavailable Noble, Carine Attending Unavailable Reed, Dallas Referring Unavailable Roof CHANGE CONSULTANT, Mike H Attending Unavailable Reed, Dallas Primary Care Unavailable Robotham, Lara Attending Unavailable Reed, Dallas Primary Care Unavailable Reed, Dallas Referring Unavailable Robotham, Lara Attending Unavailable Reed, Dallas Primary Care Unavailable Reed, Dallas Referring Unavailable Donato Longoria Attending Unavailable Reed, Dallas Primary Care Unavailable Waldo, Dustin Consulting Unavailable [place], Dustin Referring Unavailable Waldo, Dustin Attending Unavailable [...] Primary Care Unavailable Brant Alcantara Attending Unavailable Adecal, Amir Consulting Unavailable Hinduja, Alia Consulting Unavailable Marcos, Carine Consulting Unavailable Yoshi Jaky Consulting Unavailable John Mar Consulting Unavailable Nata Alvarez Consulting Unavailable Félix Lawrence Consulting Unavailable Haider Hendrix Consulting Unavailable Jesse Anaya Consulting Unavailable Luciana Guerra Consulting Unavailable Carlos Lemus Consulting Unavailable Roula Polk Consulting Unavailable Vale Muniz Consulting Unavailable Estella, d Steve Consulting UnavailSupa Morales Consulting Unavailable Oden, Rami Consulting Unavailable Manuel Acevedo Consulting Unavailable Agustín, Kourtney Consulting Unavailable Diogenes Ashton Consulting Unavailable Margy Stark Consulting Unavailable Brant Alcantara Consulting Unavailable Waldo, Dustin Attending Unavailable Maxime, Dallas Primary Care Unavailable Reed, Dallas Referring Unavailable Dustin Hawk Referring Unavailable Dustin Hawk Attending Unavailable Maxime, Dallas Primary Care Unavailable SAIRADARYA Referring Unavailable REED, DALLAS Tadeo Primary Care Unavailable SAIRADARYA Referring Unavailable REED, DALLAS Tadeo Primary Care Unavailable ASIRADARYA EPPS Attending Unavailable MAXIME, DALLAS Tadeo Primary Care [...] Care Unavailable REED, DALLAS Tadeo Referring Unavailable REED, DALLAS Tadeo Attending Unavailable MAXIME, DALLAS Tadeo Primary Care Unavailable MAXIME, DALLAS Tadeo Primary Care Unavailable ADRIAN WARNER Referring Unavailable SAIRADARYA EPPS Attending Unavailable MAXIME, DALLAS Tadeo Primary Care Unavailable REED, DALLAS Tadeo Primary Care Unavailable REED, DALLAS Tadeo Primary Care Unavailable MAXIME, DALLAS Tadeo Attending Unavailable SELF Referring Unavailable REED, JOCELIN [...] Primary Care Unavailable REED, JOCELIN Referring Unavailable Reed MD, Dr. Haynes Primary Care Provider Carine Lopez Attending Provider Dr. Veena Nelson DO Emergency Provider Dr. Cameron Solares DO Admit Provider Unavail able Dr. Cameron Solares DO Attending Provider Unav ailable Allergies Allergy Classification Reported Allergen(s) Allergy Type Date of Onset Reaction(s) Facility (20 sources) atorvastatin; Translations: [ATORVASTATIN CALCIUM] Drug Allergy [address] [facility] Repository Comment on above: muscle pain (20 sources) cloNIDine; Translations: [CLONIDINE] Drug Allergy [address] [facility] Repository (20 sources) Hmg-Coa Reductase Inhibitors (Statins); Translations: [VQYHKBO-FLL-EJK REDUCTASE INHIBITORS] Propensity to adverse reactions (disorder) [address] [facility] Repository (20 sources) lisinopril; Translations: [LISINOPRIL] Drug Allergy [address] [facility] Repository (20 sources) rosuvastatin; Translations: [ROSUVASTATIN CALCIUM] Drug Allergy [address] [facility] Repository Comment on above: muscle pain (1 source) atorvastatin Drug Allergy 9 [place], [place] (16 sources) Hmg-Coa Reductase Inhibitors (Statins) Propensity to adverse reactions to drug 9 Other [place], [place] Comment on above: MUSCLE VERY SORE (1 source) rosuvastatin Drug Allergy 9 [place], [place] (2 sources) Eitmzgi-Tkz-Ali Reductase Inhibitor; Translations: [Xpjjtdq-Cho-Aqu Reductase Inhibitor] Allergy to substance 2 Other [facility] Repository (20 sources) NIFEdipine; Translations: [NIFEDIPINE] Drug Allergy 5 Swelling [facility] Work Phone: (4 sources) HMG-CoA reductase inhibitor [facility] Current Medications Medication Drug Class(es) Dates [...] above: Take 1 tablet by wendy th twice daily for 7 days. ascorbic acid [...] take 1 tablet by mouth once daily Bempedoic Acid (Nexletol) 180 mg tablet Active 180 mg PO DAILY July 11, 2024 12:00am carvedilol 6.25 mg oral tablet (20 sources) alpha-Adrenergic Adrienne, beta-Adrenergic Adrienne Start: 05-21-2025 take 1 tablet by mouth twice daily Carvedilol 6.25 mg tablet Active 6.25 mg PO TWICE A DAY May 21, 2025 12:00am Start: 05-18-2025 take 1 tablet by wendy th twice daily at mealtime carvedilol (COREG) 6.25 mg tablet Take 1 tablet by mouth two times a day with meals. 180 tablet 3 05/18/2025 Active Start: 05-14-2020 End: 05-21-2025 take 1 tablet by mouth twice daily Carvedilol 12.5 mg tablet Discontinued 12.5 mg PO TWICE A DAY 180 0 November 12, 2021 5:30pm May 21, 2025 3:11am heart Start: 07-24-2019 End: 05-14-2020 take 2 tablets [...] above: Take 1 tablet by wendy th twice daily with meals. cholecalciferol 0.125 mg [...] 2025 11:01am supplement take 1 capsule by [facility] once daily Cholecalciferol, Vitamin D3, 25 [...] End: 02-15-2025 take 1 tablet by mouth at bedtime Doxazosin 8 mg tablet Active 8 mg PO AT BEDTIME May 23, 2024 12:00am prostate Start: 03-27-2021 take 3 tablets by [facility] once daily at bedtime doxazosin (CARDURA) 4 [...] on above: Take 3 tablets by [facility] daily at bedtime. Take 1 tablet by wendy th daily at bedtime. ezetimibe 10 mg oral tablet (20 sources) Dietary Cholesterol Absorption Inhibitor Start: 09-08-2023 End: 02-15-2025 take 1 tablet by mouth once daily Ezetimibe 10 mg tablet Active 10 mg PO DAILY July 11, 2024 12:00am Comment on above: Take 1 tablet by [...] 09/07/2024 Discontinued (Course of therapy completed) furosemide 20 mg oral tablet (20 sources) Loop Diuretic Start: 05-21-2025 take 1 tablet by mouth once daily Furosemide 20 mg tablet Active 20 mg PO DAILY May 21, 2025 12:00am Start: 05-10-2025 take 1 tablet by wendy once daily as needed Furosemide (Lasix) 40 mg tablet Active 40 mg PO DAILY as needed for SOB 14 0 May 10, 2025 12:00am 40mg PO daily x 3 days followed by PRN Start: 07-11-2024 End: 02-15-2025 take 1 tablet by mouth once daily Furosemide 20 mg tablet Discontinued 20 mg PO DAILY July 11, 2024 12:00am January 12, 2025 10:57am Start: 05-17-2019 End: 05-23-2024 take 1 tablet [...] 06/07/2024 Discontinued take 1 capsule by mo ut once daily Garlic 1,000 mg cap Take 1 capsule by mouth once daily. Active take 1 capsule by mo uth once daily Garlic 1,000 mg cap Take 1 capsule by mouth once daily. 0 Active GARLIC PO Take b y mouth 0 Active Comment on above: Take 1 capsule by mo ut once daily. glucosamine/chondr rich A sod (OSTEO [...] oral tablet (20 sources) Arteriolar Vasodilator Start: End: take 1 tablet by mouth three times daily Hydralazine 100 mg tablet Active 100 mg PO THREE TIMES A DAY May 23, 2024 12:00am blood pressure Start: 03-04-2023 take 1 tablet by wendy th three times daily hydrALAZINE (APRESOLINE) 100 mg [...] Start: 03-27-2021 take 1 tablet by wendy four times daily hydrALAZINE (APRESOLINE) 100 mg [...] four times daily. Take 1 tablet by wendy th twice daily. Take 1 tablet by wendy th three times daily. Take 1 tablet by wendy th three times a day. levOCARNitine 500 mg oral capsule (20 sources) Carnitine Analog take 1 capsule by mouth once daily levOCARNitine (L-CARNITINE) 500 mg capsule Take 500 mg by mouth once daily. Active levothyroxine sodium 0.025 mg oral tablet (20 sources) l-Thyroxine Start: 09-08-20 End: 03-13-20 take 1 tablet by mouth once daily Levothyroxine 25 mcg tablet Active 25 ug PO DAILY November 28, 2024 12:00am losartan potassium 100 mg oral tablet (20 sources) Angiotensin 2 Receptor Adrienne Start: 05-17-20 End: 03-28-20 take 1 tablet by mouth once daily Losartan 100 mg tablet Active 100 mg PO DAILY May 17, 2019 12:00am BP Comment on above: Take 1 tablet by wendy once daily. Magnesium (20 sources) Start: 05-17-20 [...] mouth daily. Active take 2 tablets by mo ut once daily Magnesium 200 mg tab Take 400 mg by mouth once daily. Suspended take 2 tablets by mo uth once [...] daily. magnesium oxide 400 mg oral tablet (9 sources) Start: 05-23-2024 take 1 tablet by [...] DAILY May 18, 2019 12:00am Multivitamin tablet (9 sources) Start: 05-18-2019 Multivitamin t ablet Active [...] NIFEdipine 60 mg extended release oral tablet (13 sources) Dihydropyridine Calcium Channel Adrienne Start: 01-12-2025 [...] 90 tablet 12/02/2024 12/02/2024 Discontinued (Side Effects) [place]-3 Fatty Acids (FISH OI L PO) (1 source) [place]-3 Fatty Ac ids (FISH OIL PO) Take by mouth 0 Active predniSONE 10 mg oral tablet (19 sources) Start: 03-11-2024 End: 03-20-2024 predniSONE (DELTASONE) [...] NEEDED as needed for Pain 12 3 June 06, 2019 June 08, 2019 12:00am June 10, 2019 12:10am Pain of right hip Pain in right hip Start: 06-06-2019 End: 06-10-2019 take 1 tablet by mouth every six hours as needed Hydrocodone-Acetaminophen Discontinued 1 TABLET PO EVERY 6 HOURS NEEDED 12 June 06, 2019 June 10, 2019 12:10am Start: 09-11-2015 End: 01-08-2018 Hydrocodone-Acetaminophen 1 TABLET tablet Discontinued 1 - 2 {tbl} PO EVERY 4 HOURS NEEDED as needed for Pain 20 February 19, 2017 12:00am January 08, 2018 [...] / oxyCODONE hydrochloride 5 mg oral tablet (16 sources) Opioid Agonist Start: 06-15-2019 End: 06-19-2019 [...] tablet Discontinued 5 mg PO DAILY 1 October 13, 2016 5:34pm January 08, 2018 [...] mg / clavulanate 125 mg oral tablet (8 sources) Penicillin-class Antibacterial Start: 01-12-2025 End: 04-18-2025 take 1 tablet by mouth every twelve hours Amoxicillin-Pot Clavulanate 875-125 mg tablet Discontinued 875 mg PO Q12H 20 January 12, 2025 12:00am April 18, 2025 4:29pm biotin 5 mg oral capsule (17 sources) Start: 07-24-2019 End: 11-12-2021 take 1 [...] Boswellia Roland Xt (Bulk) 10 GM powder (9 sources) Start: 07-26-2015 End: 05-17-2019 Boswellia Roland [...] on above: Take 3 capsules by m out once daily. cefTRIAXone (Rocephin) 1,000 mg in [...] 1 mg / omega-3 acid ethyl esters (senior care) 500 mg / phytosterols 200 mg / pyridoxine hydrochloride 12.5 mg / vitamin b12 0.5 mg oral capsule (20 sources) Vitamin B12, Vitamin D Start: 07-26-2015 End: 01-10-2024 [id number]-B -6-phy 500-1,000-500 mg-unit-mcg cap Take by mouth. 07/26/2015 01/10/2024 Discontinued (Discontinued by Patient) Start: 07-26-2015 End: 05-23-2024 take 1 capsule by mouth once daily [id number] 1 EACH ca psule Discontinued 1 NMA PO DAILY July 26, 2015 1:00am May 23, 2024 8:01pm supplement On Hold: Resume on 04/21/23. Start: 07-26-2015 [id number] Active 1 EACH PO DAILY July 26, 2015 1:00am Comment on above: Take by mouth. chondroitin sulfates 200 mg / glucosamine hydrochloride 250 mg oral tablet (16 sources) Start: 019 End: Glucosamine-Chondroi tin (Osteo [...] Comment on above: Take 1 tablet by [facility] twice daily. For cholesterol. COMPOUNDED PRESCRIPTION (20 sources) End: 01-10-20 24 take 1 capsule by mouth once daily COMPOUNDED PRESCRIPTION Take 1 capsule by mouth once daily. [place] Q Plus 01/10/2024 Discontinued (Discontinued by Patient) End: 01-10-2024 take 1 capsule by mouth once daily COMPOUNDED PRESCRIPTION Take 1 capsule by mouth once daily. [place] Q Plus 0 01/10/2024 Discontinued (Discontinued by Patient) take 1 capsule by [facility] once daily COMPOUNDED PRESCRIPTION Take 1 capsule by mouth once daily. [place] Q Plus 0 Active Comment on above: Take 1 capsule by [facility] once daily. [place] Q Plus diazePAM 2 mg oral tablet (16 sources) Benzodiazepine Start: 7 End: 8 take 1 tablet by mouth three times daily as needed Diazepam 2 MG tablet Discontinued 2 mg PO 3 TIMES DAILY NEEDED as needed for Vertigo 15 0 February 19, 2017 12:00am January 08, 2018 2:59pm enteric contrast (will be provided with radiology test) (2 sources) Start: 5 End: 5 enteric contrast (will be provided with radiology [...] 2019 1:34pm Fish,Bora,Flax Oils-Om3,6,9no1 1,200 MG capsule (9 sources) Start: 07-26-2015 End: 05-17-2019 take 1 [...] (FLONASE) 50 mcg/actuation nasal spray Use 1 Metaline in each nostril daily at bedtime. 1 Each 2 09/07/2024 Active gabapentin 300 mg oral capsule (16 sources) Anti-epileptic Agent Start: 01-08-2018 End: 05-17-2019 [...] 2019 1:35pm 0.5 ml heparin sodium, porcine 32240 unt/ml prefilled syringe (2 sources) Unfractionated Heparin, [...] bromide 0.021 mg/actuat metered dose nasal spray (16 sources) Anticholinergic Start: 01-08-2018 End: 05-17-2019 Ipratropium [place] 0.03 % spray,non-aerosol Discontinued 2 NMA INTRANASAL 2 to 3 times per day as needed January 08, 2018 12:00am May 17, 2019 1:35pm Start: 01-08-2018 End: 05-17-2019 Ipratropium [place] Disconti nued 2 SPRAY INTRANASAL 2 to [...] guidelines link. ivermectin 3 mg oral tablet (18 sources) Antiparasitic, Pediculicide Start: End: 2 take 1 tablet by mouth [...] 19 prevention) ketoconazole 20 mg/ml topical cream (9 sources) Azole Antifungal Start: 05-23-2024 End: 07-07-2024 [...] % injection lisinopril 10 mg oral tablet (16 sources) Angiotensin Converting Enzyme Inhibitor Start: 10-13-2016 [...] 10-20 mcg/min and titrate per order parameters. [place]-3 1,050 mg, Fish Oil, 1,050-1,200 mg cap (10 sources) [place]-3 1,050 mg , Fish Oil, 1,050-1,200 mg [...] APPLY TO AFFECTED AREA polyethylene glycol 3350 33741 mg powder for oral solution (9 sources) Osmotic Laxative Start: 2023 End: 2023 Polyethylene Glycol 3350 (Miralax) 17 gram/dose powder Discontinued 17 g PO DAILY 238 0 July 11, 2024 12:00am August 11, 2024 1:22pm polyethylene glycol 3350 106034 mg / potassium chloride 2970 mg / sodium bicarbonate 6740 mg / sodium chloride 5860 mg / sodium sulfate 36782 mg powder for oral solution (1 source) [...] from your provider. Sodium Chloride 0.9 % (13 sources) Start: 2022 End: 2022 take 1 [...] infusion traMADol hydrochloride 50 mg oral tablet (9 sources) Opioid Agonist Start: 08-31-2024 End: 11-28-2024 [...] th once daily. Vitamin B Complex tablet (9 sources) Start: 01-08-2018 End: 05-17-2019 Vitamin B [...] [Incisional hernia without obstruction or gangrene] Onset: 5 Resolved: 5 08-26-2017 Episodic Comment on above: Left Abdominal pain (18 sources) Left lower quadrant pain; Translations: [Left lower quadrant pain] Onset: 5 11-27-2024 Episodic Acute and unspecified renal failure (2 sources) Acute renal failure syndrome; Translations: [Acute kidney failure, unspecified] 05-21-2025 Episodic Acute myocardial infarction (2 sources) Myocardial infarction; Translations: [Non-ST elevation (NSTEMI) myocardial infarction] 05-21-2025 Chronic Aortic; peripheral; and visceral artery aneurysms (20 sources) Abdominal aortic 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; Translations: [Abdominal aortic aneurysm, without rupture] Onset: 2 Resolved: 3 11-22-2018 Chronic Comment on above: 4.67 x 4.82 cm in di ameter as of January 19, 2023 Cardiac dysrhythmias (2 sources) Atrial flutter; Translations: [Unspecified atrial flutter] 05-21-2025 Chronic Chronic kidney disease (20 sources) Chronic kidney [...] graft (replacement), initial encounter] Onset: 5 Episodic Complications of surgical procedures or medical care (20 sources) Wound hematoma; Translations: [Postoperative wound hematoma] Onset: 5 01-20-2021 Episodic Congestive heart failure; nonhypertensive (20 sources) [...] Onset: 5 Chronic Deficiency and other anemia (17 sources) Anemia; Translations: [Anemia, unspecified] 01-08-2021 Episodic [...] Chronic Hypertension with complications and secondary hypertension (16 sources) Hypertensive heart failure; Translations: [Hypertensive heart [...] carotid artery] Onset: 4 Chronic Other aftercare (11 sources) History of hernia repair; Translations: [Encounter for follow-up examination after completed treatment for conditions other than malignant neoplasm] 09-15-2024 Episodic Other aftercare (4 sources) Surgical follow-up; Translations: [Encounter for surgical aftercare following surgery on the circulatory system] 04-18-2025 Episodic Other aftercare (1 source) Encounter for surgical aftercare following surgery on the circulatory system; Translations: [Encounter for surgical aftercare following surgery on the circulatory system] Onset: 5 Episodic Other connective tissue disease (16 sources) History of total knee arthroplasty; Translations: [Presence of left artificial knee joint] 04-01-2021 Chronic Other connective tissue disease (16 sources) History of total hip arthroplasty; Translations: [Presence of unspecified artificial hip joint] 04-01-2021 Chronic Other gastrointestinal disorders (1 source) Loose stool; Translations: [Other fecal abnormalities] Episodic Other gastrointestinal disorders (3 sources) Diarrhea; Translations: [Diarrhea, unspecified] Episodic Other gastrointestinal disorders (20 sources) Splenomegaly; Translations: [Splenomegaly, not elsewhere classified] Onset: 4 07-17-2024 Episodic Other gastrointestinal disorders (9 sources) Constipation; Translations: [Constipation, unspecified] 07-19-2024 Episodic Other hematologic conditions (1 source) History of anemia; Translations: [Personal history of diseases of the blood and blood-forming organs and certain disorders involving the immune mechanism] 05-23-2024 Episodic Other lower respiratory disease (19 sources) Dyspnea; Translations: [Shortness of breath] 05-17-2019 Episodic Other lower respiratory disease (16 sources) Productive cough ; Translations: [Cough productive of purulent sputum] 05-17-2019 Episodic Other lower respiratory disease (1 source) Cough; Translations: [Cough] Episodic Other lower respiratory disease (1 source) Shortness of breath; Translations: [Shortness of breath] Onset: 5 Episodic Other male genital disorders (20 sources) Secondary erectile dysfunction; 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, unspecified] Onset: 6 01-09-2015 Chronic Other nervous system disorders (9 sources) Ataxia; Translations: [Ataxia, unspecified] 06-01-2024 Episodic [...] Translations: [Abnormal weight loss] 05-23-2024 Episodic Other screening for suspected conditions (not mental disorders or infectious disease) (4 sources) Thyroid hormone tests abnormal; Translations: [Other specified abnormal findings of blood chemistry] Onset: 4 06-07-2024 Episodic Other upper respiratory disease (20 sources) Allergic rhinitis; Translations: [Allergic rhinitis, unspecified] Onset: 7 11-17-2016 Chronic Other upper respiratory infections (2 sources) Acute upper respiratory infection; Translations: [Acute upper respiratory infection, unspecified] Episodic Otitis media and related conditions (1 source) Acute right otitis media; Translations: [Otitis media, unspecified, right ear] Episodic Pancreatic disorders (not diabetes) (20 sources) Cyst of pancreas; Translations: [Cyst of pancreas] Onset: 4 07-17-2024 Episodic Pneumonia (except that caused by tuberculosis or sexually transmitted disease) (16 sources) Pneumonia due to respiratory syncytial virus; Translations: [Respiratory syncytial virus pneumonia] 05-17-2019 Episodic Residual codes; unclassified (16 sources) History of repair of umbilical hernia; Translations: [Other specified postprocedural states] 04-01-2021 Episodic Residual codes; unclassified (16 sources) History of repair of eyelid; Translations: [Other specified postprocedural states] 04-01-2021 Episodic Residual codes; unclassified (16 sources) History of colonoscopy; Translations: [Other specified postprocedural states] 04-01-2021 Episodic Residual codes; unclassified (20 sources) History of repair of aneurysm of abdominal aorta; Translations: [Other specified postprocedural states] Onset: 3 04-16-2023 Episodic Residual codes; unclassified (2 sources) Procedure not done; Translations: [Procedure and treatment not carried out, unspecified reason] 07-11-2024 Episodic Screening and history of mental health and substance abuse codes (2 sources) Patient encounter status; Translations: [Encounter for screening for depression] 09-07-2024 Episodic Spondylosis; intervertebral disc disorders; other back problems (20 sources) Disorder of lumbar disc; 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, thoracolumbar and lumbosacral intervertebral disc disorder] Onset: 7 Resolved: 8 01-08-2021 Chronic Thyroid disorders (20 sources) Hypothyroidism; Translations: [Hypothyroidism, unspecified] Onset: 4 09-07-2024 Chronic Transient cerebral ischemia (12 sources) Transient cerebral ischemia; Translations: [Transient cerebral ischemic attack, unspecified] Onset: 4 06-07-2024 Chronic Unclassified (2 sources) Unknown / UNK(Unknown) Onset: 7 Unclassified (15 sources) High Risk Chronic Disease Home Monitoring Problem Onset: 3 02-03-2023 Unclassified (1 source) Musculoskeletal finding 11-09-2024 Past or Other Problems Problem Classification Problem Date Documented Date Episodic/Chronic Conditions associated with dizziness or vertigo (2 sources) Dizziness; Translations: [Dizziness and giddiness] Onset: 06-09-2024 05-23-2024 Episodic E Codes: Fall (20 sources) Fall; Translations: [Unspecified fall, subsequent encounter] Onset: 11-21-2024 11-09-2024 Episodic Medical examination/evaluatio n (1 source) Encounter for preprocedural cardiovascular examination; Translations: [Encounter for preprocedural cardiovascular examination] Onset: 09-09-2017 Episodic Other connective tissue disease (20 sources) Musculoskeletal finding; Translations: [Other symptoms and signs involving the musculoskeletal system] Onset: 11-21-2024 11-09-2024 Episodic Other connective tissue disease (1 source) Other symptoms and signs involving the musculoskeletal system; Translations: [Proximal leg weakness] Onset: 11-21-2024 Episodic Other hematologic conditions (1 source) Personal [...] Translations: [Weight loss] Onset: 05-31-2024 Episodic Other skin disorders (20 sources) Vitiligo; Translations: [Vitiligo] Onset: 01-12-2013 01-09-2015 Episodic Residual codes; unclassified (20 sources) History [...] Test Name Value Interpretation Reference Range Facility Absolute lymphocyte countOrd ered By: Veena Nelson on 05-21-2025 Lymphocytes Auto (Unsp spec) [#/Vol] 0.72 10*3/uL Low 0.83-4.51 [facility] Absolute neutrophil countOrd ered By: Veena Nelson on 05-21-2025 Neutrophils (Bld) [#/Vol] 3.3 10*3/uL 2.0-7.7 [facility] Activated partial thrombopla stin time (aPTT) in platelet poor plasma by coagulation aOrdered By: Veena Nelson on 05-21-2025 aPTT Coag (PPP) [Time] 45.1 s High 24.1-36.2 [facility] Anion gap in Serum or Plasma Ordered By: Veena Nelson on 05-21-2025 Anion gap [Moles/Vol] 15 mmol/L 5-15 [facility] Automated lymphocyte count a s percentage of total leukocytesOrdered By: Veena Nelson on 05-21-2025 Lymphocytes/100 WBC Auto (Unsp spec) 16.2 % Low 19-41 [facility] BUN/creatinine ratioOrdered By: Veena Nelson on 05-21-2025 Urea nitrogen/Creatinine [Mass ratio] 24.7 mg/mg High 10-20 [facility] Basophil percentageOrdered B y: Veena Nelson on 05-21-2025 Basophils/100 WBC (Bld) 0.7 % 0-1 [facility] Carbon dioxide, total [Moles /volume] in Central venous bloodOrdered By: Veena Nelson on 05-21-2025 CO2 [Moles/Vol] 21.4 mmol/L 21.0-32.0 [facility] Chloride assayOrdered By: Markell Nelson on 05-21-2025 Chloride [Moles/Vol] 104 mmol/L 98-108 [facility] Eosinophil percentageOrdered By: Veena Nelson on 05-21-2025 Eosinophils/100 WBC (Bld) 3.6 % 0-5 [facility] Erythrocyte distribution wid th ratioOrdered By: Veena Nelson on 05-21-2025 Erythrocyte distribution width (RBC) [Ratio] 14.7 % High 11.6-14.6 [facility] Erythrocyte distribution wid th standard deviationOrdered By: Veena Nelson on 05-21-2025 Erythrocyte distribution width (RBC) [Ratio] 49.6 fl High 35.1-43.9 [facility] Glomerular filtration rate ( GFR) estimation/1.73 sq m using serum, plasma, or whole bOrdered By: Veena Nelson on 05-21-2025 GFR/1.73 sq M.predicted among non-blacks MDRD (S/P/Bld) [Vol rate/Area] 35 mL/min/{1.73_m2} Low >60 [facility] Comment on above: mL/min/1.73m2 CKD-EP I Creatinine Equation (2020) Hematocrit Auto (Bld) [Volum e fraction]Ordered By: Veena Nelson on 05-21-2025 Hematocrit (Bld) [Volume fraction] 32.6 % Low 40-54 [facility] Hemoglobin measurementOrdere d By: Veena Nelson on 05-21-2025 Hemoglobin (Bld) [Mass/Vol] 10.5 g/dL Low 13.0-16.5 [facility] Immature granulocytes/100 WB C Auto (Bld)Ordered By: Veena Nelson 05-21-2025 Immature granulocytes/100 WBC (Bld) 0.700 % 0.0-0.9 [facility] Comment on above: IG% - Immature Granu locytes (promyelocytes, myelocytes and metamyelocytes) > 1% indicates that a LEFT SHIFT is Present. International normalized rat io (INR) calculationOrdered By: Veena Nelson on 05-21-2025 INR Coag (Bld) [Relative time] 1.3 {INR} [facility] MCV (mean corpuscular volume ) determinationOrdered By: Veena Nelson on 05-21-2025 MCV (RBC) [Entitic vol] 91.1 fL 80-94 [facility] Magnesium measurement (mass/ volume)Ordered By: Veena Nelson on 05-21-2025 Magnesium (Unsp spec) [Mass/Vol] 2.1 mg/dL 1.5-2.2 [facility] Mean corpuscular hemoglobin (MCH) determinationOrdered By: Veena Nelson on 05-21-2025 MCH (RBC) [Entitic mass] 29.3 pg 27.0-32.0 [facility] Mean corpuscular hemoglobin concentration (MCHC) determinationOrdered By: Veena Nelson on 05-21-2025 MCHC (RBC) [Mass/Vol] 32.2 g/dL 32-36 [facility] Mean platelet volume determi nationOrdered By: Veena Nelson on 05-21-2025 Platelet mean volume (Bld) [Entitic vol] 11.2 fL 6.2-12.0 [facility] Monocyte percentageOrdered B y: Veena Nelson on 05-21-2025 Monocytes/100 WBC (Bld) 5.8 % 0-10 [facility] Natriuretic peptide.B prohor mani N-Terminal [Mass/volume] in Serum or PlasmaOrdered By: Veena Nleson on 05-21-2025 Natriuretic peptide.B prohormone N-Terminal [Mass/Vol] 3942 pg/mL High <1800 [facility] Comment on above: Heart Failure Unlike ly: < 300 pg/mLHeart Failure Likely< 50 Years: > 450 pg/mL50-75 Years: > 900 pg/mL>75 Years: > 1800 pg/mL Neutrophil percentageOrdered By: Veena Nelson on 05-21-2025 Neutrophils/100 WBC (Bld) 73.0 % High 47-70 [facility] Nucleated red blood cell per centageOrdered By: Veena Nelson on 05-21-2025 Nucleated RBC/100 WBC (Bld) [Ratio] 0 % 0-5 [facility] Platelet countOrdered By: Markell Nelson on 05-21-2025 Platelets (Bld) [#/Vol] 92 10*3/uL Low 150-450 [facility] Potassium measurement (mass/ volume)Ordered By: Veena Nelson on 05-21-2025 Potassium (Unsp spec) [Mass/Vol] 4.2 mmol/L 3.3-5.1 [facility] Prothrombin timeOrdered By: Veena Nelson on 05-21-2025 PT Coag (PPP) [Time] 16.0 s High 11.7-14.9 [facility] RBC Auto (Bld) [#/Vol]Ordere d By: Veena Nelson on 05-21-2025 RBC (Bld) [#/Vol] 3.58 10*6/uL Low 4.6-6.2 [facility] Serum creatinine measurement (mass/volume)Ordered By: Veena Nelson on 05-21-2025 Creatinine [Mass/Vol] 1.86 mg/dL High 0.70-1.20 [facility] Serum glucose measurement (m ass/volume)Ordered By: Veena Nelson on 05-21-2025 Glucose [Mass/Vol] 115 mg/dL High 70-99 [facility] Serum or plasma calcium jossie urement (mass/volume)Ordered By: Veena Nelson on 05-21-2025 Calcium [Mass/Vol] 9.2 mg/dL 7.6-11.0 [facility] Serum or plasma urea nitroge n measurement (mass/volume)Ordered By: Veena Nelson on 05-21-2025 Urea nitrogen [Mass/Vol] 46 mg/dL High 4-19 [facility] Sodium levelOrdered By: Rupert Nelson on 05-21-2025 Sodium [Moles/Vol] 140 mmol/L 133-145 [facility] TSH DL <= 0.005 mIU/L QnOrde red By: Veena Nelson on 05-21-2025 TSH Qn 9.790 uIU/mL High 0.300-4.200 [facility] Troponin T.cardiac [Mass/vol ume] in Serum or Plasma by High sensitivity methodOrdered By: Veena Nelson on 05-21-2025 Troponin T.cardiac High sensitivity method [Mass/Vol] 222 ng/L High <22 [facility] Comment on above: CRITICAL VALUE CONTRERAS D TO [id number]/01/25 0429 Adryan Yan.RESULTS READ BACK BY SAME. Troponin T.cardiac High sensitivity method [Mass/Vol] 93 ng/L High <22 [facility] Comment on above: Critical Result(s) C alled at 0238: by: ANUJ TO ASEF Results read back by same. White blood cell (WBC) count Ordered By: Veena Nelson on 05-21-2025 WBC (Bld) [#/Vol] 4.5 10*3/uL 4.4-11.0 [facility] CBC W Auto Differential pane l (Bld)on 05-18-2025 Basophils (Bld) [#/Vol] 0.04 10*3/uL [facility] Basophils/100 WBC (Bld) 0.9 % [facility] Differential cell count method Nom (Bld) Auto [facility] Eosinophils (Bld) [#/Vol] 0.19 10*3/uL [facility] Eosinophils/100 WBC (Bld) 4.1 % [facility] Erythrocyte distribution width (RBC) [Ratio] 14.9 % 11.5 - 15.0 % [facility] Hematocrit (Bld) [Volume fraction] 34.6 % Low 39.0 - 51.0 % [facility] Hemoglobin (Bld) [Mass/Vol] 11.0 g/dL Low 13.0 - 17.0 g/dL [facility] Immature granulocytes (Bld) [#/Vol] [facility] Immature granulocytes/100 WBC (Bld) 0.2 % [facility] Interpretation and review of laboratory results Abnormal [facility] Lymphocytes (Bld) [#/Vol] 1.04 10*3/uL [facility] Lymphocytes/100 WBC (Bld) 22.2 % [facility] MCH (RBC) [Entitic mass] 29.8 pg 26.0 - 34.0 pg [facility] MCHC (RBC) [Mass/Vol] 31.8 g/dL 30.5 - 36.0 g/dL [facility] MCV (RBC) [Entitic vol] 93.8 fL 80.0 - 100.0 fL [facility] Monocytes (Bld) [#/Vol] 0.53 10*3/uL NINF [facility] Monocytes/100 WBC (Bld) 11.3 % [facility] Neutrophils (Bld) [#/Vol] 2.87 10*3/uL [facility] Neutrophils/100 WBC (Bld) 61.3 % [facility] Nucleated RBC (Bld) [#/Vol] NINF [facility] Nucleated RBC/100 WBC (Bld) [Ratio] 0.0 % /100 WBC [facility] Platelet mean volume (Bld) [Entitic vol] 12.6 fL 9.0 - 12.7 fL [facility] Platelets (Bld) [#/Vol] 73 10*3/uL Low [facility] Comment on above: No clot detected. RBC (Bld) [#/Vol] 3.69 10*6/uL Low 4.20 - 6.0 0 m/uL [facility] WBC (Bld) [#/Vol] 4.68 10*3/uL [facility] Basophils (Bld) [#/Vol] 0.04 10*3/uL Normal <0.11 [facility] Comment on above: Order Comment: Speci men Type: BLOOD SPECIMENOrdering Facility: [facility] Address: [address] [place] [address] Performed By: #### 5 7021-8 ####[facility] LABCLIA [id number] [place] [address] [place] Basophils/100 WBC (Bld) 0.9 % Normal [facility] Comment on above: Order Comment: Speci men Type: BLOOD SPECIMENOrdering Facility: [facility] Address: [address] [place] [address] Performed By: #### 5 7021-8 ####[facility] LABIA [id number] [place] [address] [place] Differential cell count method Nom (Bld) Auto Normal [facility] Comment on above: Order Comment: Speci men Type: BLOOD SPECIMENOrdering Facility: [facility] Address: [address] [place] [address] Performed By: #### 5 7021-8 ####[facility] LABCLIA [id number] [address], [place] [address] [place] Eosinophils (Bld) [#/Vol] 0.19 10*3/uL Normal <0.46 [facility] Comment on above: Order Comment: Speci men Type: BLOOD SPECIMENOrdering Facility: [facility] Address: [address] [place] [address] Performed By: #### 5 7021-8 ####[facility] LABCLIA [id number] [address], [place] [address] [place] Eosinophils/100 WBC (Bld) 4.1 % Normal [facility] Comment on above: Order Comment: Speci men Type: BLOOD SPECIMENOrdering Facility: [facility] Address: [address] [place] [address] Performed By: #### 5 7021-8 ####[facility] LABCLIA [id number] [address], [place] [address] [place] Erythrocyte distribution width (RBC) [Ratio] 14.9 % Normal 11.5-15.0 [facility] Comment on above: Order Comment: Speci men Type: BLOOD SPECIMENOrdering Facility: [facility] Address: [address] [place] [address] Performed By: #### 5 7021-8 ####[facility] LABCLIA [id number] [place] [address] [place] Hematocrit (Bld) [Volume fraction] 34.6 % Low 39.0-51.0 [facility] Comment on above: Order Comment: Speci men Type: BLOOD SPECIMENOrdering Facility: [facility] Address: [address] [place] [address] Performed By: #### 5 7021-8 ####[facility] LABCLIA [id number] [place] [address] [place] Hemoglobin (Bld) [Mass/Vol] 11.0 g/dL Low 13.0-17.0 [facility] Comment on above: Order Comment: Speci men Type: BLOOD SPECIMENOrdering Facility: [facility] Address: [address] [place] [address] Performed By: #### 5 7021-8 ####[facility] LABCLIA [id number] [facility] [address] [place] Immature granulocytes (Bld) [#/Vol] 10*3/uL Normal <0.10 [facility] Comment on above: Order Comment: Speci men Type: BLOOD SPECIMENOrdering Facility: [facility] Address: [address] [place] [address] Performed By: #### 5 7021-8 ####[facility] LABCLIA [id number] [place] [address] [place] Immature granulocytes/100 WBC (Bld) 0.2 % Normal [facility] Comment on above: Order Comment: Speci men Type: BLOOD SPECIMENOrdering Facility: [facility] Address: [address] [place] [address] Performed By: #### 5 7021-8 ####[facility] LABCLIA [id number] [place] [address] [place] Lymphocytes (Bld) [#/Vol] 1.04 10*3/uL Normal 1.00-4.00 [facility] Comment on above: Order Comment: Speci men Type: BLOOD SPECIMENOrdering Facility: [facility] Address: [address] [place] [address] Performed By: #### 5 7021-8 ####[facility] LABCLIA [id number] [place] [address] [place] Lymphocytes/100 WBC (Bld) 22.2 % Normal [facility] Comment on above: Order Comment: Speci men Type: BLOOD SPECIMENOrdering Facility: [facility] Address: [address] [place] [address] Performed By: #### 5 7021-8 ####[facility] LABIA [id number] [place] [address] [place] [facility] MCH (RBC) [Entitic mass] 29.8 pg Normal 26.0-34.0 [facility] Comment on above: Order Comment: Speci men Type: BLOOD SPECIMENOrdering Facility: [facility] Address: [address] [place] [address] Performed By: #### 5 7021-8 ####[facility] LABIA [id number] [place] [address] [place] MCHC (RBC) [Mass/Vol] 31.8 g/dL Normal 30.5-36.0 [facility] Comment on above: Order Comment: Speci men Type: BLOOD SPECIMENOrdering Facility: [facility] Address: [address] [place] [address] Performed By: #### 5 7021-8 ####[facility] [id number] [place] [address] [place] MCV (RBC) [Entitic vol] 93.8 fL Normal 80.0-100.0 [facility] Comment on above: Order Comment: Speci men Type: BLOOD SPECIMENOrdering Facility: [facility] Address: [address] [place] [address] Performed By: #### 5 7021-8 ####[facility] LABIA [id number] [place] [address] [place] Monocytes (Bld) [#/Vol] 0.53 10*3/uL Normal <0.87 [facility] Comment on above: Order Comment: Speci men Type: BLOOD SPECIMENOrdering Facility: [facility] Address: [address] [place] [address] Performed By: #### 5 7021-8 ####[facility] LABIA [id number] [address] [address] [place] Monocytes/100 WBC (Bld) 11.3 % Normal [facility] Comment on above: Order Comment: Speci men Type: BLOOD SPECIMENOrdering Facility: [facility] Address: [address] [place] [address] Performed By: #### 5 7021-8 ####[facility] LABCLIA [id number] [place] [address] [place] Neutrophils (Bld) [#/Vol] 2.87 10*3/uL Normal 1.45-7.50 [facility] Comment on above: Order Comment: Speci men Type: BLOOD SPECIMENOrdering Facility: [facility] Address: [address] [place] [address] Performed By: #### 5 7021-8 ####[facility] LABCLIA [id number] [place] [address] [place] Neutrophils/100 WBC (Bld) 61.3 % Normal [facility] Comment on above: Order Comment: Speci men Type: BLOOD SPECIMENOrdering Facility: [facility] Address: [address] [place] [address] Performed By: #### 5 7021-8 ####[facility] LABCLIA [id number] [place] [id number] [place] Nucleated RBC (Bld) [#/Vol] 10*3/uL Normal <0.01 [facility] Comment on above: Order Comment: Speci men Type: BLOOD SPECIMENOrdering Facility: [facility] Address: [address] [place] [address] Performed By: #### 5 7021-8 ####[facility] LABCLIA [id number] [place] [id number] [place] Nucleated RBC/100 WBC (Bld) [Ratio] 0.0 /100 WBC Normal [facility] Comment on above: Order Comment: Speci men Type: BLOOD SPECIMENOrdering Facility: [facility] Address: [address] [place] [address] Performed By: #### 5 7021-8 ####[facility] [id number] [place] [address] [place] Platelet mean volume (Bld) [Entitic vol] 12.6 fL Normal 9.0-12.7 [facility] Comment on above: Order Comment: Speci men Type: BLOOD SPECIMENOrdering Facility: [facility] Address: [address] [place] [address] Performed By: #### 5 7021-8 ####[facility] [id number] [place] [address] [place] Platelets (Bld) [#/Vol] 73 10*3/uL Low 150-400 [facility] Comment on above: Order Comment: Speci men Type: BLOOD SPECIMENOrdering Facility: [facility] Address: [address] [place] [address] Result Comment: No c lot detected. Performed By: #### 5 7021-8 ####[facility] [id number] [place] [address] [place] RBC (Bld) [#/Vol] 3.69 10*6/uL Low 4.20-6.00 [facility] Comment on above: Order Comment: Speci men Type: BLOOD SPECIMENOrdering Facility: [facility] Address: [address] [place] [address] Performed By: #### 5 7021-8 ####[facility] [id number] [place] [address] [place] WBC (Bld) [#/Vol] 4.68 10*3/uL Normal 3.70-11.00 [facility] Comment on above: Order Comment: Speci men Type: BLOOD SPECIMENOrdering Facility: [facility] Address: [address] [place] [address] Performed By: #### 5 7021-8 ####[facility] LABCLIA [id number] [address] [address] [place] CNOVon 05-18-2025 CNOV Normal [facility] Ferritin SerPl-ncon 2024 Ferritin [Mass/Vol] 384.0 ng/mL Normal 30.3-565.7 [facility] Comment on above: Order Comment: Speci men Type: BLOOD SPECIMENOrdering Facility: [facility] Address: [address] [place] [address] Performed By: #### 5 0190-8, 2276-4, 3016-3 ####[facility] LABIA [id number] [place] [address] [place] Folate SerPl-nc 05-18-20 Folate [Mass/Vol] 13.6 ng/mL Normal >4.7 [facility] Comment on above: Order Comment: Speci men Type: BLOOD SPECIMENOrdering Facility: [facility] Address: [address] [place] [address] Performed By: #### 2 132-9, 2284-8 ####[facility] [id number] [place] [address] [place] Iron and Iron binding capaci ty panelon 05-18-2025 Iron [Mass/Vol] 76 ug/dL Normal 41-186 [facility] Comment on above: Order Comment: Speci men Type: BLOOD SPECIMENOrdering Facility: [facility] Address: [address] [place] [address] Performed By: #### 5 0190-8, 2276-4, 3016-3 ####[facility] LABIA [id number] [place] [address] [place] Iron binding capacity [Mass/Vol] 297 ug/dL Normal 232-386 [facility] Comment on above: Order Comment: Speci men Type: BLOOD SPECIMENOrdering Facility: [facility] Address: [address] [place] [address] Performed By: #### 5 0190-8, 2276-4, 3016-3 ####[facility] LABIA [id number] [place] [address] [place] Iron/TIBC [Molar ratio] 25.6 % Normal 15.0-57.0 [facility] Comment on above: Order Comment: Speci men Type: BLOOD SPECIMENOrdering Facility: [facility] Address: [address] [place] [address] Performed By: #### 5 0190-8, 2276-4, 3016-3 ####[facility] LABCLIA [id number] [place] [address] [place] TSH SerPl-aCncon 05-18-2025 TSH Qn 9.500 m[IU]/L High 0.270-4.200 [facility] Comment on above: Order Comment: Speci men Type: BLOOD SPECIMENOrdering Facility: [facility] Address: [address] [place] [address] Performed By: #### 5 0190-8, 2276-4, 3016-3 ####[facility] LABIA [id number] [place] [address] [place] Vit B12 SerPl-mCncon 025 Cobalamin (Vitamin B12) [Mass/Vol] 1891 pg/mL High 232-1245 [facility] Comment on above: Order Comment: Speci men Type: BLOOD SPECIMENOrdering Facility: [facility] Address: [address] [place] [address] Performed By: #### 2 132-9, 2284-8 ####[facility] LABCLIA [id number] [place] [address] [place] Anion gap in Serum or Plasma Ordered By: Mike Jay on 05-10-2025 Anion gap [Moles/Vol] 11 mmol/L 5-15 [facility] BUN/creatinine ratioOrdered By: Mike Jay on 05-10-2025 Urea nitrogen/Creatinine [Mass ratio] 27.0 mg/mg High - [facility] Basic Metabolic Profile (BMP )on 05-10-2025 BUN/CRE 27.0 RATIO High 07-09 [facility] Comment on above: Order Comment: SEND CRE TO Performed By: #### L 501.5200, L503.7505, L500.2500 ####[facility] [address] [place], [address] Calcium [Mass/Vol] 9.1 mg/dL Normal 7.6-11.0 [facility] Comment on above: Order Comment: SEND CRE TO Performed By: #### L 501.5200, L503.7505, L500.2500 ####[facility] [address] [place], [address] Chloride [Moles/Vol] 101 mmol/L Normal 98-108 [facility] Comment on above: Order Comment: SEND CRE TO Performed By: #### L 501.5200, L503.7505, L500.2500 ####[facility] [address] [place], [address] CO2 [Moles/Vol] 26.1 mmol/L Normal 21.0-32.0 [facility] Comment on above: Order Comment: SEND CRE TO Performed By: #### L 501.5200, L503.7505, L500.2500 ####[facility] [address] [place], [address] Creatinine [Mass/Vol] 1.53 mg/dL High 0.70-1.20 [facility] Comment on above: Order Comment: SEND CRE TO Performed By: #### L 501.5200, L503.7505, L500.2500 ####[facility] [address] [place], [address] GAP 11 Normal 5-15 [facility] Comment on above: Order Comment: SEND CRE TO Performed By: #### L 501.5200, L503.7505, L500.2500 ####[facility] [address] [place], [address] GFR/1.73 sq M.predicted among non-blacks MDRD (S/P/Bld) [Vol rate/Area] 44 mL/min/{1.73_m2} Low >60 [facility] Comment on above: Order Comment: SEND CRE TO Result Comment: mL/m in/1.73m2 CKD-EPI Creatinine Equation (2020) Performed By: #### L 501.5200, L503.7505, L500.2500 ####[facility] [address] [place], [address] Glucose [Mass/Vol] 98 mg/dL Normal 70-99 [facility] Comment on above: Order Comment: SEND CRE TO Performed By: #### L 501.5200, L503.7505, L500.2500 ####[facility] [address] [place], [address] Potassium [Moles/Vol] 4.1 mmol/L Normal 3.3-5.1 [facility] Comment on above: Order Comment: SEND CRE TO Performed By: #### L 501.5200, L503.7505, L500.2500 ####[facility] [address] [place], [address] Sodium [Moles/Vol] 138 mmol/L Normal 133-145 [facility] Comment on above: Order Comment: SEND CRE TO Performed By: #### L 501.5200, L503.7505, L500.2500 ####[facility] [address] [place], [address] Urea nitrogen [Mass/Vol] 41 mg/dL High 4-19 [facility] Comment on above: Order Comment: SEND CRE TO Performed By: #### L 501.5200, L503.7505, L500.2500 ####[facility] [address] [place], [address] Carbon dioxide, total [Moles /volume] in Central venous bloodOrdered By: Mike Jay on 05-10-2025 CO2 [Moles/Vol] 26.1 mmol/L 21.0-32.0 [facility] Cardiology Visit Reporton Cardiology Visit Report [facility] [address] [place] [address] OFFICE VISIT Date of Service: 05/10/25 MR#: [id number] Acct: [id number] Name: LEANA CAMEJO Rep #: [id number] : 1940 Provider: SHELLIE calvert Age/Sex: 85/M Location[place] [facility] Status: Signed HPI HPI History of [...] room air Intake Visit Reasons: FU VISIT Fashion Coordinator Required: No Accompanied by: Self Is patient in pain?: No Allergies lisinopril Allergy (Intermediate, Verified 05/10/25 08:10) Rash atorvastatin calcium (From Lipitor) Allergy (Verified 05/10/25 08:10) Other clonidine Allergy (Verified 05/10/25 08:10) Unknown rosuvastatin calcium (From Crestor) Allergy (Verified 05/10/25 08:10) Other Naqytwu-FVG-NfW Reductase Inhibitor (Sqcwdcn-Fkg-Drf Reductase Inhibitor) Allergy (Verified 05/10/25 08:10) Other [...] History Father (more content not included)... Normal [facility] Chloride assayOrdered By: Keily Jay on 05-10-2025 Chloride [Moles/Vol] 101 mmol/L 98-108 [facility] Glomerular filtration rate ( GFR) estimation/1.73 sq m using serum, plasma, or whole bOrdered By: Mike Jay on 05-10-2025 GFR/1.73 sq M.predicted among non-blacks MDRD (S/P/Bld) [Vol rate/Area] 44 mL/min/{1.73_m2} Low >60 [facility] Comment on above: mL/min/1.73m2 CKD-EP I Creatinine Equation (2020) Magnesiumon 05-10-2025 Magnesium [Mass/Vol] 2.3 mg/dL High 1.5-2.2 [facility] Comment on above: Order Comment: SEND CRE TO Performed By: #### L 501.5200, L503.7505, L500.2500 ####[facility] [address] [place], [address] Magnesium measurement (mass/ volume)Ordered By: Mike Jay on 05-10-2025 Magnesium (Unsp spec) [Mass/Vol] 2.3 mg/dL High 1.5-2.2 [facility] Natriuretic peptide.B prohor mani N-Terminal [Mass/volume] in Serum or PlasmaOrdered By: Mike Jay on 05-10-2025 Natriuretic peptide.B prohormone N-Terminal [Mass/Vol] 5468 pg/mL High <1800 [facility] Comment on above: Heart Failure Unlike ly: < 300 pg/mLHeart Failure Likely< 50 Years: > 450 pg/mL50-75 Years: > 900 pg/mL>75 Years: > 1800 pg/mL Potassium measurement (mass/ volume)Ordered By: Mike Jay on 05-10-2025 Potassium (Unsp spec) [Mass/Vol] 4.1 mmol/L 3.3-5.1 [facility] Pro- Brain NATRIURETIC PEPTI [place] 05-10-2025 Natriuretic peptide B (Bld) [Mass/Vol] 5468 pg/mL High <=1800 [facility] Comment on above: Order Comment: SEND CRE TO Result Comment: Hear t Failure Unlikely: < 300 pg/mL Heart Failure Likely < 50 Years: > 450 pg/mL 50-75 Years: > 900 pg/mL >75 Years: > 1800 pg/mL Performed By: #### L 501.5200, L503.7505, L500.2500 ####[facility] [address] [place], [address] Serum Creatinine AND GFRon 0 05-10-2025 CREAT,SERUM Normal 0.70-1.20 [facility] Comment on above: Result Comment: OVER LAPPING TEST Performed By: #### L 501.2450, L100.0100, BTS, L500.4050 #### [facility] [address] [place], [address] eGFR Normal >60 [facility] Comment on above: Result Comment: OVER LAPPING TEST Performed By: #### L 501.2450, L100.0100, BTS, L500.4050 #### [facility] [address] [place], [place], [address] Serum creatinine measurement (mass/volume)Ordered By: Mike Jay on 05-10-2025 Creatinine [Mass/Vol] 1.53 mg/dL High 0.70-1.20 [facility] Serum glucose measurement (m ass/volume)Ordered By: Mike Jay on 05-10-2025 Glucose [Mass/Vol] 98 mg/dL 70-99 [facility] Serum or plasma calcium jossie urement (mass/volume)Ordered By: Mike Jay on 05-10-2025 Calcium [Mass/Vol] 9.1 mg/dL 7.6-11.0 [facility] Serum or plasma urea nitroge n measurement (mass/volume)Ordered By: Mike Jay on 05-10-2025 Urea nitrogen [Mass/Vol] 41 mg/dL High 4-19 [facility] Sodium levelOrdered By: Mike Jay on 05-10-2025 Sodium [Moles/Vol] 138 mmol/L 133-145 [facility] CTA Abd/Pelvis W/WO Contrast on 04-30-2025 CTA Abd/Pelvis W/WO Contrast [facility] Services [address] [place], [place] [id number] CTA Abd/Pelvis W/WO Contrast MR#: [id number] Acct: [id number] Name: LEANA CAMEJO Rep #: [id number] : 1940 M 85 From: Jw leo MD PCP: Dr. Dallas Reed MD Status: REG CLI Study: CTA Abd/Pelvis W/WO Contrast Date of Exam: 08/14 Exam# [id number] Ordering Dr: Dustin Hawk MD PROCEDURE: CTA [...] abdominal aorta. 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 The patient is status post endoluminal stent grafting of the [place] abdominal aortic aneurysm with the proximal [...] side. Questionable localized contrast retention Reading Location: [place] [address] CC: Dr. Dustin Hawk MD; Dr. Dallas Reed MD Front Office Medical Assistant: Signed Normal [facility] MR/BMS.BVSon 04-18-2025 MR/BMS.BVS [facility] Vascular Surgery [address] [place] [address] OFFICE VISIT Date of Service: 04/18/25 MR#: [id number] Acct: [id number] Name: LEANA CAMEJO Rep #: [id number] 2 : 1940 Provider: Dr. Dustin Hawk MD Age/Sex: 85/M Location: [facility].BVS Status: Signed Intake Vital Signs 02/14/25 09:53 04/18/25 16:27 Height 5 ft 8 in Weight: 145 lb BP 158/79 H Blood Pressure Location Lt brachial Position Sitting Respiration 16 Pulse 74 Pulse Source Monitor Temp 98.2 F Temp Source Temporal Pulse Oximetry (%) 97 Oxygen Delivery Method room air Intake Visit Reasons: FU from IR [facility] Is patient in pain?: No Allergies lisinopril Allergy (Intermediate, Verified 04/18/25 16:29) Rash atorvastatin calcium (From Lipitor) Allergy (Verified 04/18/25 16:29) Other clonidine Allergy (Verified 04/18/25 16:29) Unknown rosuvastatin calcium (From Crestor) Allergy (Verified 04/18/25 16:29) Other Hxmkqnn-TXR-TbS Reductase Inhibitor (Hvwqnoi-Dgk-Qfc Reductase Inhibitor) Allergy (Verified 04/18/25 16:29) Other Medications ???Medication ???Instructions ???Recorded ???Confirmed [...] without success. He has since gone to [facility] where they were able to successfully coil what looks like aneurysm sac/pair lumbar arteries and MUNDO. He tolerated the procedure well with no access site concerns. ROS General General: Yes fatigue and weakness; No weight change, appetite, colon cancer or breast cancer (more content not included)... Normal [facility] CNPTOUTREACHon 04-03-2025 CNPTOUTREA Normal [facility]-20[facility] Spoke with patient t [...] would like to have this done at [facility] as it is much closer to home. I stated we will fax order to [place] and work to schedule imaging there. Patient expressed understanding and thanked me for calling. Normal [facility] BASIC METABOLIC PANELon 02-19 Anion gap [Moles/Vol] 8 mmol/L Normal 3-13 [facility] Comment on above: Performed By: #### L AB15 #### Car Sales Associate: GUIDO JACOB ([phone]) [address] Calcium [Mass/Vol] 9.1 mg/dL Normal 8.8-10.0 [facility] Comment on above: Performed By: #### L AB15 #### Car Sales Associate: GUIDO JACOB ([phone]) [facility] ([facility]) [address] [place] [address] [place] Chloride [Moles/Vol] 103 mmol/L Normal 98-107 [facility] Comment on above: Performed By: #### L AB15 #### Car Sales Associate: GUIDO JACOB ([phone]) [facility]) [address] [place] [address] [place] CO2 [Moles/Vol] 26 mmol/L Normal 23-31 [facility] Comment on above: Performed By: #### L AB15 #### Car Sales Associate: GUIDO JACOB ([phone]) [facility] [address] [place] [address] [place] Creatinine [Mass/Vol] 1.72 mg/dL High 0.72-1.25 [facility] Comment on above: Performed By: #### L AB15 #### Car Sales Associate: GUIDO JACOB ([phone]) [facility] [address] [place] [address] [place] GLOMERULAR FILTRATION RATE ML/MIN/1.73 SQ M.PREDICTED 38.5 mL/min/1.73m*2 Low >60.0 [facility] Comment on above: Result Comment: Calc ulation based on the Chronic Kidney Disease Epidemiology Collaboration (CKD-EPI) equation refit without adjustment for race Performed By: #### L AB15 #### Car Sales Associate: GUIDO JACOB ([id number]) [facility] ([facility]) [address] [place] [address] [place] Glucose [Mass/Vol] 108 mg/dL Normal 82-115 [facility] Comment on above: Performed By: #### L AB15 #### Car Sales Associate: GUIDO JACOB ([phone]) [facility]) [address] [place] [address] [place] Potassium [Moles/Vol] 4.0 mmol/L Normal 3.5-5.1 [facility] Comment on above: Result Comment: [facility] potassium values may be up to 0.5 mmol/L lower than serum values. Performed By: #### L AB15 #### Car Sales Associate: GUIDO JACOB ([id number]) [facility] [address] [place] [address] [place] Sodium [Moles/Vol] 137 mmol/L Normal 136-145 [facility] Comment on above: Performed By: #### L AB15 #### Car Sales Associate: GUIDO JACOB ([phone]) [facility] [address] [place] [address] [place] Urea nitrogen [Mass/Vol] 49 mg/dL High 9-23 [facility] Comment on above: Performed By: #### L AB15 #### Car Sales Associate: GUIDO JACOB ([id number]) [facility] [address] [place] [address] Basic metabolic 1998 panelon 03-16-2025 Anion gap [Moles/Vol] 8 mmol/L 3 - 13 mmol/L [facility] Calcium [Mass/Vol] 9.1 mg/dL 8.8 - 10. 0 mg/dL [facility] Chloride [Moles/Vol] 103 mmol/L 98 - 10 7 mmol/L [facility] CO2 [Moles/Vol] 26 mmol/L 23 - 31 mmol/L [facility] Creatinine [Mass/Vol] 1.72 mg/dL High 0.72 - 1.25 mg/dL [facility] GFR/1.73 sq M.predicted (S/P/Bld) [Vol rate/Area] 38.5 mL/min Low - PINF [facility] Comment on above: Calculation based on the Chronic Kidney Disease Epidemiology Collaboration (CKD-EPI) equation refit without adjustment for race Glucose [Mass/Vol] 108 mg/dL 82 - 115 mg/dL [facility] Interpretation and review of laboratory results Abnormal [facility] Potassium [Moles/Vol] 4 mmol/L 3.5 - 5.1 mmol/L [facility] Comment on above: Plasma potassium cynthia ues may be up to 0.5 mmol/L lower than serum values. Sodium [Moles/Vol] 137 mmol/L 136 - 145 mmol/L [facility] Urea nitrogen [Mass/Vol] 49 mg/dL High 9 - 23 mg/dL [facility] CBC (HEMOGRAM)on 03-16-2025 Erythrocyte distribution width (RBC) [Ratio] 14.9 % Normal 11.5-15.0 [facility] Comment on above: Performed By: #### L AB294 #### Car Sales Associate: GUIDO JACOB ([phone]) [facility] [address] [place] [address] Hematocrit (Bld) [Volume fraction] 31.7 % Low 40.0-52.0 [facility] Comment on above: Performed By: #### L AB294 #### Car Sales Associate: GUIDO JACOB ([id number]) [facility] ([facility]) [address] [place] [address] Hemoglobin (Bld) [Mass/Vol] 10.2 g/dL Low 13.0-18.0 [facility] Comment on above: Performed By: #### L AB294 #### Car Sales Associate: GUIDO JACOB ([phone]) [facility] ([facility]) [address] [place] [address] IPF 3 Normal [facility] Comment on above: Performed By: #### L AB294 #### Car Sales Associate: GUIDO JACOB ([phone]) [facility] ([facility]) [address] [place] [address] MCH (RBC) [Entitic mass] 29.9 pg Normal 26.0-34.0 [facility] Comment on above: Performed By: #### L AB294 #### Car Sales Associate: GUIDO JACOB ([phone]) [facility] ([facility]) [address] [place] [address] MCHC 32.2 % Normal 30.5-36.0 [facility] Comment on above: Performed By: #### L AB294 #### Car Sales Associate: GUIDO JACOB ([id number]) [facility] ([facility]) [address] [place] [address] MCV (RBC) [Entitic vol] 93.0 fL Normal 77.0-99.0 [facility] Comment on above: Performed By: #### L AB294 #### Car Sales Associate: GUIDO JACOB ([phone]) [facility] ([facility]) [address] [place] [address] Platelet mean volume (Bld) [Entitic vol] 11.0 fL Normal 9.0-12.7 [facility] Comment on above: Performed By: #### L AB294 #### Car Sales Associate: GUIDO JACOB ([phone]) [facility] ([facility]) [address] [place] [address] Platelets (Bld) [#/Vol] 87 10*3/uL Low 140-440 [facility] Comment on above: Performed By: #### L AB294 #### Car Sales Associate: GUIDO JACOB ([phone]) [facility] ([facility]) [address] [place] [address] RBC (Bld) [#/Vol] 3.41 10*6/uL Low 4.40-5.90 [facility] Comment on above: Performed By: #### L AB294 #### Car Sales Associate: GUIDO JACOB ([phone]) [facility] ([facility]) [address] [place] [address] WBC (Bld) [#/Vol] 4.4 10*3/uL Normal 3.6-10.7 [facility] Comment on above: Performed By: #### L AB294 #### Car Sales Associate: GUIDO JACOB ([id number]) [facility] ([facility]) [address] [place] [address] CBC panel Auto (Bld)Ordered By: Lourdes Boothe on 03-16-2025 Erythrocyte distribution width (RBC) [Ratio] 14.9 % 11.5 - 15.0 % [facility] Hematocrit (Bld) [Volume fraction] 31.7 % Low 40.0 - 52.0 % [facility] Hemoglobin (Bld) [Mass/Vol] 10.2 g/dL Low 13.0 - 18.0 g/dL [facility] Interpretation and review of laboratory results Abnormal [facility] IPF 3 [facility] MCH (RBC) [Entitic mass] 29.9 pg 26.0 - 34.0 pg [facility] MCHC (RBC) [Mass/Vol] 32.2 % 30.5 - 36.0 % [facility] MCV (RBC) [Entitic vol] 93 fL 77.0 - 99.0 fL [facility] Bloxr Platelet mean volume (Bld) [Entitic vol] 11 fL 9.0 - 12.7 fL [facility] Bloxr Platelets (Bld) [#/Vol] 87 10*3/uL Low 140 - 440 10*3/uL [facility] RBC (Bld) [#/Vol] 3.41 10*6/uL Low 4.40 - 5.9 0 10*6/uL [facility] WBC (Bld) [#/Vol] 4.4 10*3/uL 3.6 - 10.7 10*3/uL [facility] Laboratory - Coagulationon 0 03-16-2025 PT Coag (Bld) [Time] 12.1 s High 9.0 - 12.0 s [facility] Nursing Noteon 03-16-2025 Nursing Note Hemostasis achieved Normal [facility] Nursing Note Third coil deployed Normal [facility] Nursing Note Second coil deployed Normal [facility] Nursing Note First coil deployed Normal [facility] Nursing Note Patient arrived from [facility] 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 Dr. Bobo in to speak with the patient regarding procedure, and consent was obtained. Patient's lab values and allergies were reviewed. Patient was placed supine on exam table, prepped and draped in sterile fashion. Telemetry monitors were placed. Normal [facility] PROTHROMBIN TIMEon INR Coag (PPP) [Relative time] 1.1 {INR} Normal 0.9-1.1 [facility] Comment on above: Result Comment: Irving [...] Infarction Performed By: #### L AB320 #### Car Sales Associate: GUIDO JACOB ([phone]) [facility] ([facility]) [address] [place] [address] PT Coag (PPP) [Time] 12.1 s High 9.0-12.0 [facility] Comment on above: Performed By: #### L AB320 #### Car Sales Associate: GUIDO JACOB ([id number]) [facility] ([facility]) [address] [place] [address] PT Coag (Bld) [Time]on 03-16 INR Coag (PPP) [Relative time] 1.1 {INR} 0.9 - 1.1 [facility] Comment on above: Recommended Anticoag ulant Therapy: [...] Interpretation and review of laboratory results Abnormal [facility] CNOVon 03-12-2025 CNOV Normal [facility] T4 Free SerPl-mCncon 025 Free T4 [Mass/Vol] 1.1 ng/dL Normal 0.9-1.7 [facility] Comment on above: Order Comment: Speci men Type: BLOOD SPECIMENOrdering Facility: [facility] Address: [address] [place] [address] Performed By: #### 3 024-7, 3013 ####[facility] LABCLIA [id number] [place] [address] [place] TSH SerPl-aCncon 03-12-2025 TSH Qn 11.300 m[IU]/L High 0.270-4.200 [facility] Comment on above: Order Comment: Speci men Type: BLOOD SPECIMENOrdering Facility: [facility] Address: [address] [place] [address] Performed By: #### 3 024-7, 3015-11 ####[facility] LABCLIA [id number] [place] [address] [place] CNPTOUTREACHon 03-02-2025 CNPTOUTREACH Normal [facility] MR/BMS.Arnoldo 02-27-2025 MR/BMS.JAMES [facility] Vascular Surgery [address] [place], [place] [address] OFFICE VISIT Date of Service: 02/27/25 MR#: [id number] Acct: [id number] Name: LEANA CAMEJO Rep #: [id number] : 1940 Provider: CHRIS Orellana Age/Sex: 85/M Location: [facility] Status: Signed Intake Vital Signs 01/12/25 10:30 [...] (From Crestor) Allergy (Verified 02/27/25 14:49) Other Dwbfsvn-MNP-LfV Reductase Inhibitor (Vzczoft-Mow-Cam Reductase Inhibitor) Allergy (Verified 02/27/25 14:49) Other [...] mg 400 mg PO DAILY supplement 4 02/27/25 History magnesium) tablet aspirin 81 mg [...] is res (more content not included)... Normal [facility] CNPTOUTREACHon 02-26-2025 CNPTOUTREA Normal [facility] Normal [facility] Anion gap in Serum or Plasma Ordered By: Dustin Hawk on 02-14-2025 Anion gap [Moles/Vol] 12 mmol/L 5-15 [facility] BUN/creatinine ratioOrdered By: Dustin Hawk on 02-14-2025 Urea nitrogen/Creatinine [Mass ratio] 28.6 mg/mg High 10-20 [facility] Basic Metabolic Profile (BMP )on 02-14-2025 BUN/CRE 28.6 RATIO High - [facility] Comment on above: Performed By: #### L 500.2500, L100.0500 ####[facility] [address] [place], [address] Calcium [Mass/Vol] 9.5 mg/dL Normal 7.6-11.0 [facility] Comment on above: Performed By: #### L 500.2500, L100.0500 ####[facility] [address] [place], [address] Chloride [Moles/Vol] 102 mmol/L Normal 98-108 [facility] Comment on above: Performed By: #### L 500.2500, L100.0500 ####[facility] [address] [place], [address] CO2 [Moles/Vol] 25.1 mmol/L Normal 21.0-32.0 [facility] Comment on above: Performed By: #### L 500.2500, L100.0500 ####[facility] [address] [place], [address] Creatinine [Mass/Vol] 1.73 mg/dL High 0.70-1.20 [facility] Comment on above: Performed By: #### L 500.2500, L100.0500 ####[facility] [address] [place], [address] ECRCL 29.64 ml/min Low 50-250 [facility] Comment on above: Performed By: #### L 500.2500, L100.0500 ####[facility] [address] [place], [address] GAP 12 Normal 5-15 [facility] Comment on above: Performed By: #### L 500.2500, L100.0500 ####[facility] [address] [place], [address] GFR/1.73 sq M.predicted among non-blacks MDRD (S/P/Bld) [Vol rate/Area] 38 mL/min/{1.73_m2} Low >60 [facility] Comment on above: Result Comment: mL/m in/1.73m2 CKD-EPI Creatinine Equation (2020) Performed By: #### L 500.2500, L100.0500 ####[facility] [address] [place], [address] Glucose [Mass/Vol] 110 mg/dL High 70-99 [facility] Comment on above: Performed By: #### L 500.2500, L100.0500 ####[facility] [address] [place], [address] Potassium [Moles/Vol] 4.5 mmol/L Normal 3.3-5.1 [facility] Comment on above: Performed By: #### L 500.2500, L100.0500 ####[facility] [address] [place], [address] Sodium [Moles/Vol] 139 mmol/L Normal 133-145 [facility] Comment on above: Performed By: #### L 500.2500, L100.0500 ####[facility] [address] [place], [address] Urea nitrogen [Mass/Vol] 50 mg/dL High 4-19 [facility] Comment on above: Performed By: #### L 500.2500, L100.0500 ####[facility] [address] [place], [address] CBC-Complete Blood Cnt No Di ffon 02-14-2025 Erythrocyte distribution width (RBC) [Ratio] 15.0 % High 11.6-14.6 [facility] Comment on above: Performed By: #### L 500.2500, L100.0500 ####[facility] [address] [place], [address] Hematocrit (Bld) [Volume fraction] 35.2 % Low 40-54 [facility] Comment on above: Performed By: #### L 500.2500, L100.0500 ####[facility] [address] [place], [address] Hemoglobin (Bld) [Mass/Vol] 11.6 g/dL Low 13.0-16.5 [facility] Comment on above: Performed By: #### L 500.2500, L100.0500 ####[facility] [address] [place], [address] MCH (RBC) [Entitic mass] 30.6 pg Normal 27.0-32.0 [facility] Comment on above: Performed By: #### L 500.2500, L100.0500 ####[facility] [address] [place], [address] MCHC (RBC) [Mass/Vol] 33.0 g/dL Normal 32-36 [facility] Comment on above: Performed By: #### L 500.2500, L100.0500 ####[facility] [address] [place], [address] MCV (RBC) [Entitic vol] 92.9 fL Normal 80-94 [facility] Comment on above: Performed By: #### L 500.2500, L100.0500 ####[facility] [address] [place], [address] Platelet mean volume (Bld) [Entitic vol] 11.1 fL Normal 6.2-12.0 [facility] Comment on above: Performed By: #### L 500.2500, L100.0500 ####[facility] [address] [place], [address] Platelets (Bld) [#/Vol] 113 10*3/uL Low 150-450 [facility] Comment on above: Performed By: #### L 500.2500, L100.0500 ####[facility] [address] [place], [address] RBC (Bld) [#/Vol] 3.79 10*6/uL Low 4.6-6.2 [facility] Comment on above: Performed By: #### L 500.2500, L100.0500 ####[facility] [address] [place], [address] RDW SD 51.3 fl High 35.1-43.9 [facility] Comment on above: Performed By: #### L 500.2500, L100.0500 ####[facility] [address] [place], [address] WBC (Bld) [#/Vol] 6.0 10*3/uL Normal 4.4-11.0 [facility] Comment on above: Performed By: #### L 500.2500, L100.0500 ####[facility] [address] [place], [address] Carbon dioxide, total [Moles /volume] in Central venous bloodOrdered By: Dustin Hawk on 02-14-2025 CO2 [Moles/Vol] 25.1 mmol/L 21.0-32.0 [facility] Chloride assayOrdered By: Orestes Hawk on 02-14-2025 Chloride [Moles/Vol] 102 mmol/L 98-108 [facility] Erythrocyte distribution wid th ratioOrdered By: Dustin Hawk on 02-14-2025 Erythrocyte distribution width (RBC) [Ratio] 15.0 % High 11.6-14.6 [facility] Erythrocyte distribution wid th standard deviationOrdered By: Dustin Hawk on 02-14-2025 Erythrocyte distribution width (RBC) [Ratio] 51.3 fl High 35.1-43.9 [facility] Glomerular filtration rate ( GFR) estimation/1.73 sq m using serum, plasma, or whole bOrdered By: Dustin Hawk on 02-14-2025 GFR/1.73 sq M.predicted among non-blacks MDRD (S/P/Bld) [Vol rate/Area] 38 mL/min/{1.73_m2} Low >60 [facility] Comment on above: mL/min/1.73m2 CKD-EP I Creatinine Equation (2020) Hematocrit Auto (Bld) [Volum e fraction]Ordered By: Dustin Hawk on 02-14-2025 Hematocrit (Bld) [Volume fraction] 35.2 % Low 40-54 [facility] Hemoglobin measurementOrdere d By: Dustin Hawk on 02-14-2025 Hemoglobin (Bld) [Mass/Vol] 11.6 g/dL Low 13.0-16.5 [facility] MCV (mean corpuscular volume ) determinationOrdered By: Dustin Hawk on 02-14-2025 MCV (RBC) [Entitic vol] 92.9 fL 80-94 [facility] Mean corpuscular hemoglobin (MCH) determinationOrdered By: Dustin Hawk 02-14-2025 MCH (RBC) [Entitic mass] 30.6 pg 27.0-32.0 [facility] Mean corpuscular hemoglobin concentration (MCHC) determinationOrdered By: Dustin Hawk on 02-14-2025 MCHC (RBC) [Mass/Vol] 33.0 g/dL 32-36 [facility] Mean platelet volume determi nationOrdered By: Dustin Hawk on 02-14-2025 Platelet mean volume (Bld) [Entitic vol] 11.1 fL 6.2-12.0 [facility] Operative Reporton 5 Operative Report [facility] Medical Records Department [address] [place] [address] Operative Report 02/14/25 1613 MR#: [id number] Acct: [id number] Name: LEANA CAMEJO Rep #: [id number] : 1940 85 From: Dustin Hawk MD PCP: Dr. Dallas Reed MD Status: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 Through this verapamil, nitro, and [...] micropuncture sheath exchanged for a short 6 Prydeinig sheath. Through a 6 Prydeinig sheath Bentson wire was advanced into the [...] was then readvanced and the short 6 Prydeinig sheath in flush catheter exchanged for a 6 Prydeinig Ansell 2 sheath and utilizing this along [...] efforts were warranted so the long 6 Prydeinig sheath was exchanged for a short 6 Prydeinig sheath and a minx closure device deployed [...] MD; Dr. Dallas Reed MD Signed Normal [facility] Platelet countOrdered By: Orestes Hawk on 02-14-2025 Platelets (Bld) [#/Vol] 113 10*3/uL Low 150-450 [facility] Potassium measurement (mass/ volume)Ordered By: Dustin Hawk on 02-14-2025 Potassium (Unsp spec) [Mass/Vol] 4.5 mmol/L 3.3-5.1 [facility] RBC Auto (Bld) [#/Vol]Ordere d By: Dustin Hawk on 02-14-2025 RBC (Bld) [#/Vol] 3.79 10*6/uL Low 4.6-6.2 [facility] Serum creatinine measurement (mass/volume)Ordered By: Dustin Hawk on 02-14-2025 Creatinine [Mass/Vol] 1.73 mg/dL High 0.70-1.20 [facility] Serum glucose measurement (m ass/volume)Ordered By: Dustin Hawk on 02-14-2025 Glucose [Mass/Vol] 110 mg/dL High 70-99 [facility] Serum or plasma calcium jossie urement (mass/volume)Ordered By: Dustin Hawk on 02-14-2025 Calcium [Mass/Vol] 9.5 mg/dL 7.6-11.0 [facility] Serum or plasma urea nitroge n measurement (mass/volume)Ordered By: Dustin Hawk on 02-14-2025 Urea nitrogen [Mass/Vol] 50 mg/dL High 4-19 [facility] Sodium levelOrdered By: Dustin Hawk on 02-14-2025 Sodium [Moles/Vol] 139 mmol/L 133-145 [facility] White blood cell (WBC) count Ordered By: Dustin Hawk on 02-14-2025 WBC (Bld) [#/Vol] 6.0 10*3/uL 4.4-11.0 [facility] CNPTOUTREACHon 02-01-[address] [facility]/Pelvis W/WO Contrast on 01-18-2025 CTA Abd/Pelvis W/WO Contrast [facility] Imaging Services [address] [place] [address] CTA Abd/Pelvis W/WO Contrast MR#: [id number] Acct: [id number] Name: LEANA CAMEJO Rep #: [id number] : 1940 M 85 From: Yaneth Alexander nd, MD PCP: Dr. Dallas Reed MD Status: REG CLI Study: CTA Abd/Pelvis W/WO Contrast Date of Exam: 10/14 Exam# [id number] Ordering Dr: Carine Noble PROCEDURE: CTA ABD/PELVIS [...] recommended. 3. Persistent severe splenomegaly. Reading Location: [facility] CC: CHRIS Orellana; Dr. Dallas Reed MD Front Office Medical Assistant: Signed [facility] Normal [facility] Abdomen/Pelvis W IV Cont ONL Yon 01-12-2025 Abdomen/Pelvis W IV Cont ONLY [facility] Imaging Services [address] [place] [address] Abdomen/Pelvis W IV Cont ONLY MR#: [id number] Acct: [id number] Name: LEANA CAMEJO Rep #: [id number] : 1940 M 85 From: Jw leo MD PCP: Dr. Dallas Reed MD Status: REG ER Study: Abdomen/Pelvis W IV Cont ONLY Date of Exam: Exam# [id number] Ordering Dr: Hernandez King MD PROCEDURE: ABDOMEN/PELVIS [...] Liver: Diffuse fatty infiltration. Gallbladder: Unremarkable. Spleen: Zgsuhlyq-wv-mhvmzu degree of splenomegaly. This is unchanged. Pancreas: [...] of the examination is unchanged. Reading Location: [place] [address] CC: Dr. Hernandez King MD; Dr. Dallas Reed MD Front Office Medical Assistant: Signed Normal [facility] Absolute lymphocyte countOrd ered By: Hernandezsingh King on 01-12-2025 Lymphocytes Auto (Unsp spec) [#/Vol] 1.16 10*3/uL 0.83-4.51 [facility] Absolute neutrophil countOrd ered By: [facility] on 01-12-2025 Neutrophils (Bld) [#/Vol] 3.3 10*3/uL 2.0-7.7 [facility] Anion gap in Serum or Plasma Ordered By: Hernandezsingh King on 01-12-2025 Anion gap [Moles/Vol] 11 mmol/L 5-15 [facility] Automated lymphocyte count a s percentage of total leukocytesOrdered By: Hernandezsingh King on 01-12-2025 Lymphocytes/100 WBC Auto (Unsp spec) 22.3 % 19-41 [facility] BUN/creatinine ratioOrdered By: [facility] on 01-12-2025 Urea nitrogen/Creatinine [Mass ratio] 24.7 mg/mg High 10-20 [facility] Basic Metabolic Profile (BMP )on 01-12-2025 BUN/CRE 24.7 RATIO High 10-20 [facility] Comment on above: Performed By: #### L 100.0100, L500.2500 ####[facility] [address] [place], [address] Calcium [Mass/Vol] 8.8 mg/dL Normal 7.6-11.0 [facility] Comment on above: Performed By: #### L 100.0100, L500.2500 ####[facility] [address] [place], [address] Chloride [Moles/Vol] 102 mmol/L Normal 98-108 [facility] Comment on above: Performed By: #### L 100.0100, L500.2500 ####[facility] [address] [place], [address] CO2 [Moles/Vol] 24.7 mmol/L Normal 21.0-32.0 [facility] Comment on above: Performed By: #### L 100.0100, L500.2500 ####[facility] [address] [place], [address] Creatinine [Mass/Vol] 1.54 mg/dL High 0.70-1.20 [facility] Comment on above: Performed By: #### L 100.0100, L500.2500 ####[facility] [address] [place], [address] ECRCL 33.25 ml/min Low 50-250 [facility] Comment on above: Performed By: #### L 100.0100, L500.2500 ####[facility] [address] [place], [address] GAP 11 Normal 5-15 [facility] Comment on above: Performed By: #### L 100.0100, L500.2500 ####[facility] [address] [place], [address] GFR/1.73 sq M.predicted among non-blacks MDRD (S/P/Bld) [Vol rate/Area] 44 mL/min/{1.73_m2} Low >60 [facility] Comment on above: Result Comment: mL/m in/1.73m2 CKD-EPI Creatinine Equation (2020) Performed By: #### L 100.0100, L500.2500 ####[facility] [address] [place], [address] Glucose [Mass/Vol] 93 mg/dL Normal 70-99 [facility] Comment on above: Performed By: #### L 100.0100, L500.2500 ####[facility] [address] [place], [address] Potassium [Moles/Vol] 3.9 mmol/L Normal 3.3-5.1 [facility] Comment on above: Performed By: #### L 100.0100, L500.2500 ####[facility] [address] [place], [address] Sodium [Moles/Vol] 138 mmol/L Normal 133-145 [facility] Comment on above: Performed By: #### L 100.0100, L500.2500 ####[facility] [address] [place], [address] Urea nitrogen [Mass/Vol] 38 mg/dL High 4-19 [facility] Comment on above: Performed By: #### L 100.0100, L500.2500 ####[facility] [address] [place], [address] Basophil percentageOrdered B y: Hernandez King on 01-12-2025 Basophils/100 WBC (Bld) 0.8 % 0-1 [facility] CBC W/Diff, Automatedon 12-20 Absolute Lymph 1.16 X10 3/uL Normal 0.83-4.51 [facility] Comment on above: Performed By: #### L 100.0100, L500.2500 ####[facility] [address] [place], [address] Absolute Neut 3.3 X10 3/uL Normal 2.0-7.7 [facility] Comment on above: Performed By: #### L 100.0100, L500.2500 ####[facility] [address] [place], [address] Basophils/100 WBC (Bld) 0.8 % Normal 0-1 [facility] Comment on above: Performed By: #### L 100.0100, L500.2500 ####[facility] [address] [place], [address] Eosinophils/100 WBC (Bld) 3.5 % Normal 0-5 [facility] Comment on above: Performed By: #### L 100.0100, L500.2500 ####[facility] [address] [place], [address] Erythrocyte distribution width (RBC) [Ratio] 14.8 % High 11.6-14.6 [facility] Comment on above: Performed By: #### L 100.0100, L500.2500 ####[facility] [address] [place], [address] Hematocrit (Bld) [Volume fraction] 35.6 % Low 40-54 [facility] Comment on above: Performed By: #### L 100.0100, L500.2500 ####[facility] [address] [place], [address] Hemoglobin (Bld) [Mass/Vol] 11.5 g/dL Low 13.0-16.5 [facility] Comment on above: Performed By: #### L 100.0100, L500.2500 ####[facility] [address] [place], [address] IG% 0.400 Normal 0.0-0.9 [facility] Comment on above: Result Comment: IG% - Immature Granulocytes (promyelocytes, myelocytes and metamyelocytes) > 1% indicates that a LEFT SHIFT is Present. Performed By: #### L 100.0100, L500.2500 ####[facility] [address] [place], [address] Lymphocytes/100 WBC (Bld) 22.3 % Normal 19-41 [facility] Comment on above: Performed By: #### L 100.0100, L500.2500 ####[facility] [address] [place], [address] MCH (RBC) [Entitic mass] 29.6 pg Normal 27.0-32.0 [facility] Comment on above: Performed By: #### L 100.0100, L500.2500 ####[facility] [address] [place], [address] MCHC (RBC) [Mass/Vol] 32.3 g/dL Normal 32-36 [facility] Comment on above: Performed By: #### L 100.0100, L500.2500 ####[facility] [address] [place], [address] MCV (RBC) [Entitic vol] 91.8 fL Normal 80-94 [facility] Comment on above: Performed By: #### L 100.0100, L500.2500 ####[facility] [address] [place], [address] Monocytes/100 WBC (Bld) 9.8 % Normal 0-10 [facility] Comment on above: Performed By: #### L 100.0100, L500.2500 ####[facility] [address] [place], [address] Neutrophils/100 WBC (Bld) 63.2 % Normal 47-70 [facility] Comment on above: Performed By: #### L 100.0100, L500.2500 ####[facility] [address] [place], [address] Nucleated RBC (Bld) [#/Vol] 0 10*3/uL Normal 0-5 [facility] Comment on above: Performed By: #### L 100.0100, L500.2500 ####[facility] [address] [place], [address] Platelet mean volume (Bld) [Entitic vol] 10.8 fL Normal 6.2-12.0 [facility] Comment on above: Performed By: #### L 100.0100, L500.2500 ####[facility] [address] [place], [address] Platelets (Bld) [#/Vol] 104 10*3/uL Low 150-450 [facility] Comment on above: Performed By: #### L 100.0100, L500.2500 ####[facility] [address] [place], [address] RBC (Bld) [#/Vol] 3.88 10*6/uL Low 4.6-6.2 [facility] Comment on above: Performed By: #### L 100.0100, L500.2500 ####[facility] [address] [place], [address] RDW SD 49.7 fl High 35.1-43.9 [facility] Comment on above: Performed By: #### L 100.0100, L500.2500 ####[facility] [address] [place], [address] WBC (Bld) [#/Vol] 5.2 10*3/uL Normal 4.4-11.0 [facility] Comment on above: Performed By: #### L 100.0100, L500.2500 ####[facility] [address] [place], [address] Carbon dioxide, total [Moles /volume] in Central venous bloodOrdered By: Hernandez King on 01-12-2025 CO2 [Moles/Vol] 24.7 mmol/L 21.0-32.0 [facility] Chloride assayOrdered By: Rhett King on 01-12-2025 Chloride [Moles/Vol] 102 mmol/L 98-108 [facility] Emergency Department Summary on 01-12-2025 Emergency Department Summary [facility] Medical Records Department [address] [place] [address] Emergency Department Summary 01/12/25 MR#: [id number] Acct: [id number] Name: LEANA CAMEJO Rep #: [id number] : 1940 85 From: Hernandez King MD [...] 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 Normal [facility] Eosinophil percentageOrdered By: Hernandez King on 01-12-2025 Eosinophils/100 WBC (Bld) 3.5 % 0-5 [facility] Erythrocyte distribution wid th (RBC) [Ratio]Ordered By: Hernandez King on 01-12-2025 Erythrocyte distribution width (RBC) [Entitic vol] 49.7 fL High 35.1-43.9 [facility] Erythrocyte distribution wid th ratioOrdered By: Hernandez King on 01-12-2025 Erythrocyte distribution width (RBC) [Ratio] 14.8 % High 11.6-14.6 [facility] Erythrocyte distribution wid th standard deviationOrdered By: Hernandezsingh King on 01-12-2025 Erythrocyte distribution width (RBC) [Ratio] 49.7 fl High 35.1-43.9 [facility] Estimation of creatinine maira aranceOrdered By: Hernandez King on 01-12-2025 Estimated Creatinine Clearance Calc 33.25 ml/min Low 50-250 [facility] GFR/1.73 sq M.predicted gabi g non-blacks MDRD (S/P/Bld) [Vol rate/Area]Ordered By: Hernandez King on 01-12-2025 Estimated GFR (MDRD) Non-Af Amer 44 Low >60 [facility] Comment on above: mL/min/1.73m2 CKD-EP I Creatinine Equation (2020) Glomerular filtration rate ( GFR) estimation/1.73 sq m using serum, plasma, or whole bOrdered By: Hernandez King on 01-12-2025 GFR/1.73 sq M.predicted among non-blacks MDRD (S/P/Bld) [Vol rate/Area] 44 mL/min/{1.73_m2} Low >60 [facility] Comment on above: mL/min/1.73m2 CKD-EP I Creatinine Equation (2020) Hematocrit Auto (Bld) [Volum e fraction]Ordered By: Hernandez King on 01-12-2025 Hematocrit (Bld) [Volume fraction] 35.6 % Low 40-54 [facility] Hemoglobin measurementOrdere d By: Hernandez King on 01-12-2025 Hemoglobin (Bld) [Mass/Vol] 11.5 g/dL Low 13.0-16.5 [facility] Immature granulocytes/100 WB C Auto (Bld)Ordered By: Hernandez King on 01-12-2025 Immature granulocytes/100 WBC (Bld) 0.400 % 0.0-0.9 [facility] Comment on above: IG% - Immature Granu locytes (promyelocytes, myelocytes and metamyelocytes) > 1% indicates that a LEFT SHIFT is Present. Lymphocytes Auto (Unsp spec) [#/Vol]Ordered By: Hernandezsingh King on 01-12-2025 Lymphocytes (Bld) [#/Vol] 1.16 10*3/uL 0.83-4.51 [facility] Lymphocytes/100 WBC Auto (Un sp spec)Ordered By: Hernandez King on 01-12-2025 Lymphocytes/100 WBC (Bld) 22.3 % 19-41 [facility] MCV (mean corpuscular volume ) determinationOrdered By: Hernandezsingh King on 01-12-2025 MCV (RBC) [Entitic vol] 91.8 fL 80-94 [facility] Mean corpuscular hemoglobin (MCH) determinationOrdered By: Hernandezsingh King on 01-12-2025 MCH (RBC) [Entitic mass] 29.6 pg 27.0-32.0 [facility] Mean corpuscular hemoglobin concentration (MCHC) determinationOrdered By: Hernandezsingh King on 01-12-2025 MCHC (RBC) [Mass/Vol] 32.3 g/dL 32-36 [facility] Mean platelet volume determi nationOrdered By: Hernandezsingh King on 01-12-2025 Platelet mean volume (Bld) [Entitic vol] 10.8 fL 6.2-12.0 [facility] Monocyte percentageOrdered B y: Hernandez King on 01-12-2025 Monocytes/100 WBC (Bld) 9.8 % 0-10 [facility] Neutrophil percentageOrdered By: Hernandezsingh King on 01-12-2025 Neutrophils/100 WBC (Bld) 63.2 % 47-70 [facility] Nucleated red blood cell per centageOrdered By: Hernandez King on 01-12-2025 Nucleated RBC/100 WBC (Bld) [Ratio] 0 % 0-5 [facility] Platelet countOrdered By: Rhett King on 01-12-2025 Platelets (Bld) [#/Vol] 104 10*3/uL Low 150-450 [facility] Potassium (Unsp spec) [Mass/ Vol]Ordered By: Hernandez King on 01-12-2025 Potassium [Moles/Vol] 3.9 mmol/L 3.3-5.1 [facility] Potassium measurement (mass/ volume)Ordered By: Hernandez King on 01-12-2025 Potassium (Unsp spec) [Mass/Vol] 3.9 mmol/L 3.3-5.1 [facility] RBC Auto (Bld) [#/Vol]Ordere d By: Hernandez King on 01-12-2025 RBC (Bld) [#/Vol] 3.88 10*6/uL Low 4.6-6.2 [facility] Serum creatinine measurement (mass/volume)Ordered By: Hernandez King on 01-12-2025 Creatinine [Mass/Vol] 1.54 mg/dL High 0.70-1.20 [facility] Serum glucose measurement (m ass/volume)Ordered By: Hernandez King on 01-12-2025 Glucose [Mass/Vol] 93 mg/dL 70-99 [facility] Serum or plasma calcium jossie urement (mass/volume)Ordered By: Hernandez King on 01-12-2025 Calcium [Mass/Vol] 8.8 mg/dL 7.6-11.0 [facility] Serum or plasma urea nitroge n measurement (mass/volume)Ordered By: Hernandez King on 01-12-2025 Urea nitrogen [Mass/Vol] 38 mg/dL High 4-19 [facility] Sodium levelOrdered By: Hernandez King on 01-12-2025 Sodium [Moles/Vol] 138 mmol/L 133-145 [facility] White blood cell (WBC) count Ordered By: Hernandez King on 01-12-2025 WBC (Bld) [#/Vol] 5.2 10*3/uL 4.4-11.0 [facility] CNPTOUTREACHon 12-26-2024 CNPTOUTREACH [facility] MR/BMS.Arnoldo 12-25-2024 [facility] [address] [place] [address] OFFICE VISIT Date of Service: 12/25/24 MR#: [id number] Acct: [id number] Name: LEANA CAMEJO Rep #: [id number] : 1940 Provider: Dr. Dustin Hawk MD Age/Sex: 84/M [place] [facility] [place] Status: Signed Intake Vital Signs 11/28/24 17:53 [...] (From Crestor) Allergy (Verified 12/25/24 16:01) Other Jhqhvko-NXT-ViG Reductase Inhibitor (Vavcsbl-Eym-Cqy Reductase Inhibitor) Allergy (Verified 12/25/24 16:01) Other [...] or thin (more content not included)... Normal [facility] CNTHERAPYon 12-22-2024 CNTHERAPY Normal [facility] CNPTOUTREACHon 12-19-2024 CNPTOUTREACH Normal [facility] CNTHERAPYon 12-19-2024 CNTHERAPY Normal [facility] CNTHERAPYon 12-15-2024 CNTHERAPY Normal [facility] CNTHERAPYon 12-12-2024 CNTHERAPY Normal [facility] CNPNon 12-11-2024 CNPN Normal [facility] CNPTOUTREACHon 12-11-2024 CNPTOUTREACH Normal [facility] CNOVon 12-08-2024 CNOV Normal [facility] CNTHERAPYon 12-08-2024 CNTHERAPY Normal [facility] CNTHERAPYon 12-06-2024 CNTHERAPY Normal [facility] THERAPY NTon 12-06-2024 THERAPY NT Normal [facility] CNPTOUTREACHon 12-04-2024 CNPTOUTREACH Normal [facility] CNPNon 12-02-2024 CNPN Normal [facility] CASE MANAGEMon 12-01-2024 CASE MANAGEM Normal [facility] CBC panel Auto (Bld)on 12-01 Erythrocyte distribution width (RBC) [Ratio] 14.8 % Normal 11.5-15.0 [facility] Comment on above: Order Comment: Speci men Type: BLOOD SPECIMENOrdering Facility: [facility] [facility] Address: [address] [place] [address] Performed By: #### 5 8410-2 ####[facility] LABIA [id number] [place] [address] [place] Hematocrit (Bld) [Volume fraction] 33.8 % Low 39.0-51.0 [facility] Comment on above: Order Comment: Speci men Type: BLOOD SPECIMENOrdering Facility: [facility] Address: [address] [place] [address] Performed By: #### 5 8410-2 ####[facility] LABIA [id number] [place] [address] [place] Hemoglobin (Bld) [Mass/Vol] 10.9 g/dL Low 13.0-17.0 [facility] Comment on above: Order Comment: Speci men Type: BLOOD SPECIMENOrdering Facility: [facility] Address: [address] [place] [address] Performed By: #### 5 8410-2 ####[facility] LABIA [id number] [place] [address] [place] MCH (RBC) [Entitic mass] 30.1 pg Normal 26.0-34.0 [facility] Comment on above: Order Comment: Speci men Type: BLOOD SPECIMENOrdering Facility: [facility] Address: [address] [place] [address] Performed By: #### 5 8410-2 ####[facility] LABIA [id number] [place] [address] [place] MCHC (RBC) [Mass/Vol] 32.2 g/dL Normal 30.5-36.0 [facility] Comment on above: Order Comment: Speci men Type: BLOOD SPECIMENOrdering Facility: [facility] Address: [address] [place] [address] Performed By: #### 5 8410-2 ####[facility] LABIA [id number] [place] [address] [place] MCV (RBC) [Entitic vol] 93.4 fL Normal 80.0-100.0 [facility] Comment on above: Order Comment: Speci men Type: BLOOD SPECIMENOrdering Facility: [facility] Address: [address] [place] [address] Performed By: #### 5 8410-2 ####[facility] LABIA [id number] [place] [address] [place] Nucleated RBC (Bld) [#/Vol] 10*3/uL Normal <0.01 [facility] Comment on above: Order Comment: Speci men Type: BLOOD SPECIMENOrdering Facility: [facility] Address: [address] [place] [address] Performed By: #### 5 8410-2 ####[facility] LABIA [id number] [place] [address] [place] Platelet mean volume (Bld) [Entitic vol] 11.0 fL Normal 9.0-12.7 [facility] Comment on above: Order Comment: Speci men Type: BLOOD SPECIMENOrdering Facility: [facility] Address: [address] [place] [address] Performed By: #### 5 8410-2 ####[facility] LABIA [id number] [place] [address] [place] Platelets (Bld) [#/Vol] 86 10*3/uL Low 150-400 [facility] Comment on above: Order Comment: Speci men Type: BLOOD SPECIMENOrdering Facility: [facility] Address: [address] [place] [address] Result Comment: No c lot detected. Performed By: #### 5 8410-2 ####[facility] LABCLIA [id number] [address] [address] [place] RBC (Bld) [#/Vol] 3.62 10*6/uL Low 4.20-6.00 [facility] Comment on above: Order Comment: Speci men Type: BLOOD SPECIMENOrdering Facility: [facility] Address: [address] [place] [address] Performed By: #### 5 8410-2 ####[facility] LABIA [id number] [address] [address] [place] WBC (Bld) [#/Vol] 5.61 10*3/uL Normal 3.70-11.00 [facility] Comment on above: Order Comment: Speci men Type: BLOOD SPECIMENOrdering Facility: [facility] Address: [address] [place] [address] Performed By: #### 5 8410-2 ####[facility] LABIA [id number] [place] [id number] [place] CNDSon 12-01-2024 CNDS Normal [facility] Comprehensive metabolic 2000 panelon 12-01-2024 Albumin [Mass/Vol] 3.2 g/dL Low 3.9-4.9 [facility] Comment on above: Order Comment: Speci men Type: BLOOD SPECIMENOrdering Facility: [facility] Address: [address] [place] [address] Performed By: #### 2 4323-8, HSTNT ####[facility] LABIA [id number] [place] [id number] [place] ALP [Catalytic activity/Vol] 57 U/L Normal 38-113 [facility] Comment on above: Order Comment: Speci men Type: BLOOD SPECIMENOrdering Facility: [facility] Address: [address] [place] [address] Performed By: #### 2 4323-8, HSTNT ####[facility] LABCLIA [id number] [place] [id number] [place] ALT [Catalytic activity/Vol] 16 U/L Normal 10-54 [facility] Comment on above: Order Comment: Speci men Type: BLOOD SPECIMENOrdering Facility: [facility] Address: [address] [place] [address] Performed By: #### 2 4323-8, HSTNT ####[facility] LABCLIA [id number] [place] [address] [place] Anion gap [Moles/Vol] 7 mmol/L Low 8-15 [facility] Comment on above: Order Comment: Speci men Type: BLOOD SPECIMENOrdering Facility: [facility] Address: [address] [place] [address] Performed By: #### 2 4323-8, HSTNT ####[facility] LABCLIA [id number] [place] [address] [place] AST [Catalytic activity/Vol] 22 U/L Normal 14-40 [facility] Comment on above: Order Comment: Speci men Type: BLOOD SPECIMENOrdering Facility: [facility] Address: [address] [place] [address] Performed By: #### 2 4323-8, HSTNT ####[facility] LABCLIA [id number] [place] [address] [place] Bilirubin [Mass/Vol] 0.4 mg/dL Normal 0.2-1.3 [facility] Comment on above: Order Comment: Speci men Type: BLOOD SPECIMENOrdering Facility: [facility] Address: [address] [place] [address] Performed By: #### 2 4323-8, HSTNT ####[facility] LABCLIA [id number] [place] [address] [place] Calcium [Mass/Vol] 8.8 mg/dL Normal 8.5-10.2 [facility] Comment on above: Order Comment: Speci men Type: BLOOD SPECIMENOrdering Facility: [facility] Address: [address] [place] [address] Performed By: #### 2 4323-8, HSTNT ####[facility] LABCLIA [id number] [address] [address] [place] Chloride [Moles/Vol] 105 mmol/L Normal 98-107 [facility] Comment on above: Order Comment: Speci men Type: BLOOD SPECIMENOrdering Facility: [facility] Address: [address] [place] [address] Performed By: #### 2 4323-8, HSTNT ####[facility] LABCLIA [id number] [place] [address] [place] CO2 [Moles/Vol] 26 mmol/L Normal 22-30 [facility] Comment on above: Order Comment: Speci men Type: BLOOD SPECIMENOrdering Facility: [facility] Address: [address] [place] [address] Performed By: #### 2 4323-8, HSTNT ####[facility] LABCLIA [id number] [place] [address] [place] Creatinine [Mass/Vol] 1.59 mg/dL High 0.73-1.22 [facility] Comment on above: Order Comment: Speci men Type: BLOOD SPECIMENOrdering Facility: [facility] Address: [address] [place] [address] Performed By: #### 2 4323-8, HSTNT ####[facility] LABCLIA [id number] [place] [id number] [place] Creatinine and Glomerular filtration rate.predicted panel (S/P/Bld) 43 mL/min/1.73m??? Low >=60 [facility] Comment on above: Order Comment: Speci men Type: BLOOD SPECIMENOrdering Facility: [facility] Address: [address] [place] [address] Result Comment: Keara mated Glomerular Filtration Rate [...] GFR. Performed By: #### 2 4323-8, HSTNT ####[facility] LABIA [id number] [place] [address] [place] Glucose [Mass/Vol] 95 mg/dL Normal 74-99 [facility] Comment on above: Order Comment: Specbrice lassiter Type: BLOOD SPECIMENOrdering Facility: [facility] Address: [address] [place] [address] Result Comment: The [place] [employer] (ADA) provides guidance for cutoff [...] Standards of Medical Care in Diabetes 2016, [place] [employer]. Diabetes Care. 2016.39(Suppl 1). Performed By: #### 2 4323-8, HSTNT ####[facility] LABIA [id number] [address] [address] [place] Potassium [Moles/Vol] 4.9 mmol/L Normal 3.7-5.1 [facility] Comment on above: Order Comment: Speci men Type: BLOOD SPECIMENOrdering Facility: [facility] Address: [address] [place] [address] Performed By: #### 2 4323-8, HSTNT ####[facility] LABCLIA [id number] [address] [place] [address] [place] Protein [Mass/Vol] 6.0 g/dL Low 6.3-8.0 [facility] Comment on above: Order Comment: Speci men Type: BLOOD SPECIMENOrdering Facility: [facility] Address: [address] [place] [address] Performed By: #### 2 4323-8, HSTNT ####[facility] LABCLIA [id number] [address] [place] [address] [place] Sodium [Moles/Vol] 138 mmol/L Normal 136-144 [facility] Comment on above: Order Comment: Speci men Type: BLOOD SPECIMENOrdering Facility: [facility] Address: [address] [place] [address] Performed By: #### 2 4323-8, HSTNT ####[facility] LABCLIA [id number] [address], [facility] [place] Urea nitrogen [Mass/Vol] 32 mg/dL High 9-24 [facility] Comment on above: Order Comment: Speci men Type: BLOOD SPECIMENOrdering Facility: [facility] Address: [address] [place] [address] Performed By: #### 2 4323-8, HSTNT ####[facility] LABCLIA [id number] [address] [place] [address] [place] HIGH SENSITIVITY TROPONIN To n 12-01-2024 Troponin T.cardiac High sensitivity method [Mass/Vol] 104 ng/L High <12 [facility] Comment on above: Order Comment: Speci men Type: BLOOD SPECIMENOrdering Facility: [facility] Address: [address] [place] [address] Performed By: #### 2 4323-8, HSTNT ####[facility] LABCLIA [id number] [address] [place] [address] [place] PT EDon 12-01-2024 PT ED Normal [facility] THERAPY NTon 12-01-2024 THERAPY NT Normal [facility] CASE MANAGEMon 11-30-2024 CASE MANAGEM Normal [facility] CBC panel Auto (Bld)on 11-30 Erythrocyte distribution width (RBC) [Ratio] 14.8 % Normal 11.5-15.0 [facility] Comment on above: Order Comment: Speci men Type: BLOOD SPECIMENOrdering Facility: [facility] Address: [address] [place] [address] Performed By: #### 5 8410-2 ####[facility] LABCLIA [id number] [place] [address] [place] Hematocrit (Bld) [Volume fraction] 32.6 % Low 39.0-51.0 [facility] Comment on above: Order Comment: Speci men Type: BLOOD SPECIMENOrdering Facility: [facility] Address: [address] [place] [address] Performed By: #### 5 8410-2 ####[facility] LABIA [id number] [place] [address] [place] Hemoglobin (Bld) [Mass/Vol] 10.7 g/dL Low 13.0-17.0 [facility] Comment on above: Order Comment: Speci men Type: BLOOD SPECIMENOrdering Facility: [facility] Address: [address] [place] [address] Performed By: #### 5 8410-2 ####[facility] LABCLIA [id number] [place] [address] [place] MCH (RBC) [Entitic mass] 30.1 pg Normal 26.0-34.0 [facility] Comment on above: Order Comment: Speci men Type: BLOOD SPECIMENOrdering Facility: [facility] Address: [address] [place] [address] Performed By: #### 5 8410-2 ####[facility] LABCLIA [id number] [place] [address] [place] MCHC (RBC) [Mass/Vol] 32.8 g/dL Normal 30.5-36.0 [facility] Comment on above: Order Comment: Speci men Type: BLOOD SPECIMENOrdering Facility: [facility] Address: [address] [place] [address] Performed By: #### 5 8410-2 ####[facility] LABIA [id number] [place] [address] [place] MCV (RBC) [Entitic vol] 91.6 fL Normal 80.0-100.0 [facility] Comment on above: Order Comment: Speci men Type: BLOOD SPECIMENOrdering Facility: [facility] Address: [address] [place] [address] Performed By: #### 5 8410-2 ####[facility] LABIA [id number] [place] [address] [place] Nucleated RBC (Bld) [#/Vol] 10*3/uL Normal <0.01 [facility] Comment on above: Order Comment: Speci men Type: BLOOD SPECIMENOrdering Facility: [facility] Address: [address] [place] [address] Performed By: #### 5 8410-2 ####[facility] LABIA [id number] [place] [address] [place] Platelet mean volume (Bld) [Entitic vol] 12.0 fL Normal 9.0-12.7 [facility] Comment on above: Order Comment: Speci men Type: BLOOD SPECIMENOrdering Facility: [facility] Address: [address] [place] [address] Performed By: #### 5 8410-2 ####[facility] LABIA [id number] [place] [address] [place] Platelets (Bld) [#/Vol] 79 10*3/uL Low 150-400 [facility] Comment on above: Order Comment: Speci men Type: BLOOD SPECIMENOrdering Facility: [facility] Address: [address] [place] [address] Performed By: #### 5 8410-2 ####[facility] LABCLIA [id number] [place] [address] [place] RBC (Bld) [#/Vol] 3.56 10*6/uL Low 4.20-6.00 [facility] Comment on above: Order Comment: Speci men Type: BLOOD SPECIMENOrdering Facility: [facility] Address: [address] [place] [address] Performed By: #### 5 8410-2 ####[facility] LABCLIA [id number] [place] [address] [place] WBC (Bld) [#/Vol] 5.54 10*3/uL Normal 3.70-11.00 [facility] Comment on above: Order Comment: Speci men Type: BLOOD SPECIMENOrdering Facility: [facility] Address: [address] [place] [address] Performed By: #### 5 8410-2 ####[facility] LABCLIA [id number] [place] [address] [place] CONSULT PROGon 11-30-2024 CONSULT PROG Normal [facility] Comprehensive metabolic 2000 panelon 11-30-2024 Albumin [Mass/Vol] 3.2 g/dL Low 3.9-4.9 [facility] Comment on above: Order Comment: Speci men Type: BLOOD SPECIMENOrdering Facility: [facility] Address: [address] [place] [address] Performed By: #### 2 4323-8, 72028-5, 2777-1 ####[facility] LABCLIA [id number] [place] [id number] [place] ALP [Catalytic activity/Vol] 54 U/L Normal 38-113 [facility] Comment on above: Order Comment: Speci men Type: BLOOD SPECIMENOrdering Facility: [facility] Address: [address] [place], [place] [address] Performed By: #### 2 4323-8, , 2776-09 ####[facility] LABCLIA [id number] [address] [address] [place] ALT [Catalytic activity/Vol] 20 U/L Normal 10-54 [facility] Comment on above: Order Comment: Speci men Type: BLOOD SPECIMENOrdering Facility: [facility] Address: [address] [place], [place] [address] Performed By: #### 2 4323-8, , 2776-09 ####[facility] LABCLIA [id number] [place] [address] [place] Anion gap [Moles/Vol] 11 mmol/L Normal 8-15 [facility] Comment on above: Order Comment: Speci men Type: BLOOD SPECIMENOrdering Facility: [facility] Address: [address] [place], [place] [address] Performed By: #### 2 4323-8, , 2776-09 ####[facility] LABCLIA [id number] [place] [id number] [place] AST [Catalytic activity/Vol] 22 U/L Normal 14-40 [facility] Comment on above: Order Comment: Speci men Type: BLOOD SPECIMENOrdering Facility: [facility] Address: [address] [place], [place] [address] Performed By: #### 2 4323-8, , 2776-09 ####[facility] LABCLIA [id number] [address] [address] [place] Bilirubin [Mass/Vol] 0.4 mg/dL Normal 0.2-1.3 [facility] Comment on above: Order Comment: Speci men Type: BLOOD SPECIMENOrdering Facility: [facility] Address: [address] [place] [address] Performed By: #### 2 4323-8, , 2776-09 ####[facility] LABCLIA [id number] [address] [address] [place] Calcium [Mass/Vol] 8.8 mg/dL Normal 8.5-10.2 [facility] Comment on above: Order Comment: Speci men Type: BLOOD SPECIMENOrdering Facility: [facility] Address: [address] [place], [place] [address] Performed By: #### 2 4323-8, , 2776-09 ####[facility] LABCLIA [id number] [place] [id number] [place] Chloride [Moles/Vol] 102 mmol/L Normal 98-107 [facility] Comment on above: Order Comment: Speci men Type: BLOOD SPECIMENOrdering Facility: [facility] Address: [address] [place], [place] [address] Performed By: #### 2 4323-8, , 2776-09 ####[facility] LABIA [id number] [place] [id number] [place] CO2 [Moles/Vol] 23 mmol/L Normal 22-30 [facility] Comment on above: Order Comment: Speci men Type: BLOOD SPECIMENOrdering Facility: [facility] Address: [address] [place], [place] [address] Performed By: #### 2 4323-8, , 2776-09 ####[facility] LABIA [id number] [address] [address] [place] Creatinine [Mass/Vol] 1.59 mg/dL High 0.73-1.22 [facility] Comment on above: Order Comment: Speci men Type: BLOOD SPECIMENOrdering Facility: [facility] Address: [address] [place], [place] [address] Performed By: #### 2 4323-8, 09605-9, 2776-09 ####[facility] LABIA [id number] [place] [address] [place] Creatinine and Glomerular filtration rate.predicted panel (S/P/Bld) 43 mL/min/1.73m??? Low >=60 [facility] Comment on above: Order Comment: Ian lassiter Type: BLOOD SPECIMENOrdering Facility: [facility] Address: [address] [place] [address] Result Comment: Keara mated Glomerular Filtration Rate [...] actual GFR. Performed By: #### 2 4323-8, 57391-7, 2776-09 ####[facility] LABIA [id number] [place] [address] [place] Glucose [Mass/Vol] 98 mg/dL Normal 74-99 [facility] Comment on above: Order Comment: Ian lassiter Type: BLOOD SPECIMENOrdering Facility: [facility] Address: [address] [place] [address] Result Comment: The [place] [employer] (ADA) provides guidance for cutoff [...] Standards of Medical Care in Diabetes 2016, [place] [employer]. Diabetes Care. 2016.39(Suppl 1). Performed By: #### 2 4323-8, , 2776-09 ####[facility] LABCLIA [id number] [address] [address] [place] Potassium [Moles/Vol] 4.4 mmol/L Normal 3.7-5.1 [facility] Comment on above: Order Comment: Speci men Type: BLOOD SPECIMENOrdering Facility: [facility] Address: [address] [place] [address] Performed By: #### 2 4323-8, , 2776-09 ####[facility] LABCLIA [id number] [place] [address] [place] Protein [Mass/Vol] 5.8 g/dL Low 6.3-8.0 [facility] Comment on above: Order Comment: Speci men Type: BLOOD SPECIMENOrdering Facility: [facility] Address: [address] [place] [address] Performed By: #### 2 432-8, , 2776-09 ####[facility] LABCLIA [id number] [place] [address] [place] Sodium [Moles/Vol] 136 mmol/L Normal 136-144 [facility] Comment on above: Order Comment: Speci men Type: BLOOD SPECIMENOrdering Facility: [facility] Address: [address] [place], [place] [address] Performed By: #### 2 4323-8, , 2776-09 ####[facility] LABCLIA [id number] [address] [address] [place] Urea nitrogen [Mass/Vol] 37 mg/dL High 9-24 [facility] Comment on above: Order Comment: Speci men Type: BLOOD SPECIMENOrdering Facility: [facility] Address: [address] [place], [place] [address] Performed By: #### 2 4323-8, , 2776-09 ####[facility] LABCLIA [id number] [place] [id number] [place] Magnesium SerPl-ncon 11-30 Magnesium [Mass/Vol] 2.3 mg/dL Normal 1.7-2.3 [facility] Comment on above: Order Comment: Speci men Type: BLOOD SPECIMENOrdering Facility: [facility] Address: [address] [place] [address] Performed By: #### 2 4323-8, 80350-6, 2777-1 ####[facility] LABIA [id number] [place] [address] [place] NURSING PROGon 11-30-2024 NURSING PROG Normal [facility] Phosphate SerPl-ncon 11-30 Phosphate [Mass/Vol] 3.1 mg/dL Normal 2.7-4.8 [facility] Comment on above: Order Comment: Speci men Type: BLOOD SPECIMENOrdering Facility: [facility] Address: [address] [place] [address] Performed By: #### 2 4323-8, 43956-2, 2777-1 ####[facility] LABIA [id number] [place] [id number] [facility] [place] THERAPY NTon 11-30-2024 THERAPY NT Normal [facility] THERAPY NT Normal [facility] CAITLYN BY IFA WITH REFLEXon Nuclear Ab pattern (S) [Interp] Nuclear homogeneous Normal [facility] Comment on above: Order Comment: Speci men Type: BLOOD SPECIMENOrdering Facility: [facility] Address: [address] [place] [address] Performed By: #### A BETYIFHeather, 73561-6, 37783-8, 48060-9, 47145-2, 74115-4, 03600-5, 72101-9, 95997-0, 37039-5, 6457-6 ####[facility] LABCLIA [id number] [place] [address] [place] Nuclear Ab Ql (S) Positive Abnormal Negative [facility] Comment on above: Order Comment: Speci men Type: BLOOD SPECIMENOrdering Facility: [facility] Address: [address] [place] [address] Result Comment: Anti -nuclear antibody test is used as an aid in diagnosis of systemic autoimmune diseases. Where positive and clinically warranted, follow-up using disease-specific testing is recommended. Low positive titers are not uncommon with advanced age, certain chronic infections, and malignancies among others.Test methodology: Indirect fluorescence immunoassay (IFA) using HEp-2 cells.1:320 Performed By: #### A NAIFR, 47513-9, 62940-8, 64249-4, 37493-1, 25762-8, 76638-8, 28170-7, 77690-4, 22397-8, 6457-6 ####[facility] LABIA [id number] [place] [address] [place] CASE MGT INIT ASSESon 2024 CASE MGT INIT ASSES Normal [facility] CBC panel Auto (Bld)on 11-29 Erythrocyte distribution width (RBC) [Ratio] 14.9 % Normal 11.5-15.0 [facility] Comment on above: Order Comment: Speci men Type: BLOOD SPECIMENOrdering Facility: [facility] Address: [address] [place] [address] Performed By: #### 5 8410-2 ####[facility] LABIA [id number] [address] STATES OF [facility] Hematocrit (Bld) [Volume fraction] 31.7 % Low 39.0-51.0 [facility] Comment on above: Order Comment: Speci men Type: BLOOD SPECIMENOrdering Facility: [facility] Address: [address] [place] [address] Performed By: #### 5 8410-2 ####[facility] LABIA [id number] [place] [address] [place] Hemoglobin (Bld) [Mass/Vol] 10.5 g/dL Low 13.0-17.0 [facility] Comment on above: Order Comment: Speci men Type: BLOOD SPECIMENOrdering Facility: [facility] Address: [address] [place] [address] Performed By: #### 5 8410-2 ####[facility] LABIA [id number] [place] [address] [place] MCH (RBC) [Entitic mass] 30.3 pg Normal 26.0-34.0 [facility] Comment on above: Order Comment: Speci men Type: BLOOD SPECIMENOrdering Facility: [facility] Address: [address] [place] [address] Performed By: #### 5 8410-2 ####[facility] LABIA [id number] [address] [place] MCHC (RBC) [Mass/Vol] 33.1 g/dL Normal 30.5-36.0 [facility] Comment on above: Order Comment: Speci men Type: BLOOD SPECIMENOrdering Facility: [facility] Address: [address] [place] [address] Performed By: #### 5 8410-2 ####[facility] [id number] [place] [address] [place] MCV (RBC) [Entitic vol] 91.4 fL Normal 80.0-100.0 [facility] Comment on above: Order Comment: Speci men Type: BLOOD SPECIMENOrdering Facility: [facility] Address: [address] [place] [address] Performed By: #### 5 8410-2 ####[facility] LABIA [id number] [place] [address] [place] Nucleated RBC (Bld) [#/Vol] 10*3/uL Normal <0.01 [facility] Comment on above: Order Comment: Speci men Type: BLOOD SPECIMENOrdering Facility: [facility] Address: [address] [place] [address] Performed By: #### 5 8410-2 ####[facility] LABIA [id number] [place] [address] [place] Platelet mean volume (Bld) [Entitic vol] 10.5 fL Normal 9.0-12.7 [facility] Comment on above: Order Comment: Speci men Type: BLOOD SPECIMENOrdering Facility: [facility] Address: [address] [place] [address] Performed By: #### 5 8410-2 ####[facility] LABIA [id number] [place] [address] [place] Platelets (Bld) [#/Vol] 87 10*3/uL Low 150-400 [facility] Comment on above: Order Comment: Speci men Type: BLOOD SPECIMENOrdering Facility: [facility] Address: [address] [place] [address] Performed By: #### 5 8410-2 ####[facility] LABIA [id number] [place] [address] [place] RBC (Bld) [#/Vol] 3.47 10*6/uL Low 4.20-6.00 [facility] Comment on above: Order Comment: Speci men Type: BLOOD SPECIMENOrdering Facility: [facility] Address: [address] [place] [address] Performed By: #### 5 8410-2 ####[facility] LABCLIA [id number] [place] [address] [place] WBC (Bld) [#/Vol] 4.89 10*3/uL Normal 3.70-11.00 [facility] Comment on above: Order Comment: Speci men Type: BLOOD SPECIMENOrdering Facility: [facility] Address: [address] [place] [address] Performed By: #### 5 8410-2 ####[facility] LABIA [id number] [place] [address] [place] CONSULT PROGon 11-29-2024 CONSULT PROG Normal [facility] Centromere Ab IF Ql (S)on Centromere Ab Qn (S) <0.2 Normal <1.0 [facility] Comment on above: Order Comment: Speci men Type: BLOOD SPECIMENOrdering Facility: [facility] Address: [address] [place] [address] Result Comment: Anti -centromere antibody is used as in aid in diagnosis of systemic sclerosis. Clinical correlation is required.Test Methodology: Multiplex flow immunoassay. Performed By: #### A ESTEPHANIA, 31916-1, 34345-5, 95780-7, 27819-6, 75920-2, 43784-9, 78804-2, 52587-4, 62130-1, 6457-6 ####[facility] [id number] [place] [address] [place] CENTROMERE AB QUAL Negative Normal Negative [facility] Comment on above: Order Comment: Speci men Type: BLOOD SPECIMENOrdering Facility: [facility] Address: [address] [place] [address] Performed By: #### A ESTEPHANIA, 52109-4, 13484-4, 31296-9, 20646-3, 26147-3, 00047-3, 00534-9, 99522-6, 42522-3, 6457-6 ####[facility] [id number] [place] [address] [place] Chromatin Ab Qnon 11-29-2024 CHROMATIN AB QUAL Negative Normal Negative [facility] Comment on above: Order Comment: Speci men Type: BLOOD SPECIMENOrdering Facility: [facility] Address: [address] [place] [address] Performed By: #### A NAANDREYR, 70890-6, 28757-2, 32678-2, 55901-8, 93743-5, 49258-6, 73215-7, 74140-2, 77528-7, 6457-6 ####[facility] LABCLIA [id number] [address] [address] [place] Chromatin Ab SerPl-aCncon Chromatin Ab Qn <0.2 Normal <1.0 [facility] Comment on above: Order Comment: Speci men Type: BLOOD SPECIMENOrdering Facility: [facility] Address: [address] [place] [address] Result Comment: Test Methodology: Multiplex flow immunoassay. Performed By: #### A NAIFR, 06854-2, 31192-9, 19891-9, 79510-7, 29673-9, 30913-2, 75675-5, 76647-3, 54374-8, 6457-6 ####[facility] LABIA [id number] [place] [address] [place] Comprehensive metabolic 2000 panelon 11-29-2024 Albumin [Mass/Vol] 3.3 g/dL Low 3.9-4.9 [facility] Comment on above: Order Comment: Speci men Type: BLOOD SPECIMENOrdering Facility: [facility] Address: [address] [place] [address] Performed By: #### 2 4323-8, 82101-5, 277-1 ####[facility] LABCLIA [id number] [place] [address] [place] ALP [Catalytic activity/Vol] 64 U/L Normal 38-113 [facility] Comment on above: Order Comment: Speci men Type: BLOOD SPECIMENOrdering Facility: [facility] Address: [address] [place] [address] Performed By: #### 2 4323-8, 53058-7, 2777-1 ####[facility] LABCLIA [id number] [place] [address] [place] ALT [Catalytic activity/Vol] 19 U/L Normal 10-54 [facility] Comment on above: Order Comment: Speci men Type: BLOOD SPECIMENOrdering Facility: [facility] Address: [address] [place], [place] [address] Performed By: #### 2 4323-8, 03679-8, 2776-09 ####[facility] LABCLIA [id number] [place] [address] [place] Anion gap [Moles/Vol] 8 mmol/L Normal 8-15 [facility] Comment on above: Order Comment: Speci men Type: BLOOD SPECIMENOrdering Facility: [facility] Address: [address] [place] [address] Performed By: #### 2 4323-8, , 2776-09 ####[facility] LABCLIA [id number] [place] [address] [place] AST [Catalytic activity/Vol] 24 U/L Normal 14-40 [facility] Comment on above: Order Comment: Speci men Type: BLOOD SPECIMENOrdering Facility: [facility] Address: [address] [place] [address] Performed By: #### 2 4323-8, , 2776-09 ####[facility] LABCLIA [id number] [place] [address] [place] Bilirubin [Mass/Vol] 0.4 mg/dL Normal 0.2-1.3 [facility] Comment on above: Order Comment: Speci men Type: BLOOD SPECIMENOrdering Facility: [facility] Address: [address] [place], [place] [address] Performed By: #### 2 4323-8, , 2776-09 ####[facility] LABCLIA [id number] [address] [address] [place] Calcium [Mass/Vol] 8.8 mg/dL Normal 8.5-10.2 [facility] Comment on above: Order Comment: Speci men Type: BLOOD SPECIMENOrdering Facility: [facility] Address: [address] [place], [place] [address] Performed By: #### 2 4323-8, , 2776-09 ####[facility] LABCLIA [id number] [facility] [address] [address] [place] Chloride [Moles/Vol] 103 mmol/L Normal 98-107 [facility] Comment on above: Order Comment: Speci men Type: BLOOD SPECIMENOrdering Facility: [facility] Address: [address] [place], [place] [address] Performed By: #### 2 4323-8, , 2776-09 ####[facility] LABCLIA [id number] [address] [address] [place] CO2 [Moles/Vol] 26 mmol/L Normal 22-30 [facility] Comment on above: Order Comment: Speci men Type: BLOOD SPECIMENOrdering Facility: [facility] Address: [address] [place], [place] [address] Performed By: #### 2 4323-8, , 2776-09 ####[facility] LABCLIA [id number] [address] [address] [place] Creatinine [Mass/Vol] 1.59 mg/dL High 0.73-1.22 [facility] Comment on above: Order Comment: Speci men Type: BLOOD SPECIMENOrdering Facility: [facility] Address: [address] [place] [address] Performed By: #### 2 4323-8, , 2776-09 ####[facility] LABCLIA [id number] [address] [address] [place] Creatinine and Glomerular filtration rate.predicted panel (S/P/Bld) 43 mL/min/1.73m??? Low >=60 [facility] Comment on above: Order Comment: Ian lassiter Type: BLOOD SPECIMENOrdering Facility: [facility] Address: [address] [place] [address] Result Comment: Keara mated Glomerular Filtration Rate [...] actual GFR. Performed By: #### 2 4323-8, 32376-2, 2776-09 ####[facility] LABIA [id number] [place] [address] [place] Glucose [Mass/Vol] 109 mg/dL High 74-99 [facility] Comment on above: Order Comment: Ian lassiter Type: BLOOD SPECIMENOrdering Facility: [facility] Address: [address] [place] [address] Result Comment: The [place] [employer] Association (ADA) provides guidance for cutoff [...] Standards of Medical Care in Diabetes 2016, [place] [employer]. Diabetes Care. 2016.39(Suppl 1). Performed By: #### 2 4323-8, 38450-4, 2776-09 ####[facility] LABIA [id number] [address] [address] [place] Potassium [Moles/Vol] 4.0 mmol/L Normal 3.7-5.1 [facility] Comment on above: Order Comment: Ian lassiter Type: BLOOD SPECIMENOrdering Facility: [facility] Address: [address] [place] [address] Performed By: #### 2 4323-8, , 2776-09 ####[facility] LABCLIA [id number] [place] [address] [place] Protein [Mass/Vol] 6.0 g/dL Low 6.3-8.0 [facility] Comment on above: Order Comment: Speci men Type: BLOOD SPECIMENOrdering Facility: [facility] Address: [address] [place] [address] Performed By: #### 2 4323-8, , 2776-09 ####[facility] LABIA [id number] [place] [address] [place] Sodium [Moles/Vol] 137 mmol/L Normal 136-144 [facility] Comment on above: Order Comment: Speci men Type: BLOOD SPECIMENOrdering Facility: [facility] Address: [address] [place] [address] Performed By: #### 2 4323-8, , 2776-09 ####[facility] LABIA [id number] [place] [address] [place] Urea nitrogen [Mass/Vol] 39 mg/dL High 9-24 [facility] Comment on above: Order Comment: Speci men Type: BLOOD SPECIMENOrdering Facility: [facility] Address: [address] [place] [address] Performed By: #### 2 4323-8, , 2776-09 ####[facility] LABIA [id number] [place] [address] [place] DNA double strand Ab IA Qn ( S)on 11-29-2024 DNA ANTIBODY 543 IU/mL High <=200 [facility] Comment on above: Order Comment: Speci men Type: BLOOD SPECIMENOrdering Facility: [facility] Address: [address] [place], [place] [address] Result Comment: Nega tive: <200 IU/mLEquivocal: 201-300 IU/mLModerate Positive: 301-800 IU/mLStrong Positive: >801 IU/mL Performed By: #### A NAIFR, 39259-7, 63936-5, 22146-0, 34514-8, 00978-8, 89963-1, 72186-4, 07236-5, 80990-4, 6457-6 ####[facility] LABCLIA [id number] [place] [address] [place] DNA ANTIBODY QUALITATIVE INTERPRETATION Positive Abnormal Negative [facility] Comment on above: Order Comment: Speci men Type: BLOOD SPECIMENOrdering Facility: [facility] Address: [address] [place] [address] Performed By: #### A NAIFR, 70008-7, 40894-6, 64061-1, 61754-0, 18670-8, 78376-2, 46484-9, 32901-8, 89680-9, 6457-6 ####[facility] LABIA [id number] [place] [address] [place] ECHO LIMITEDon 11-29-2024 ECHO LIMITED Normal [facility] SULEIMAN Jo1 Ab Ser-aCncon 2024 Keily-1 extractable nuclear Ab Qn (S) <0.2 Normal <1.0 [facility] Comment on above: Order Comment: Speci men Type: BLOOD SPECIMENOrdering Facility: [facility] Address: [facility] [place] [address] Performed By: #### A NAIFR, 12948-8, 11595-4, 83358-1, 69226-4, 24408-4, 90029-1, 50848-1, 96762-9, 87477-5, 6457-6 ####[facility] LABCLIA [id number] [address] [address] [place] SULEIMAN PRODUCTION SUPERVISOR Ab Ser-aCncon 2024 Ribonucleoprotein extractable nuclear Ab Qn (S) <0.2 Normal <1.0 [facility] Comment on above: Order Comment: Speci men Type: BLOOD SPECIMENOrdering Facility: [facility] Address: [address] [place] [address] Performed By: #### A NAIFR, 00227-1, 65861-4, 83127-0, 25285-1, 81613-3, 86289-1, 97465-7, 92683-0, 08541-0, 6457-6 ####[facility] LABIA [id number] [place] [address] [place] Ribonucleoprotein extractable nuclear Ab Qn (S) 0.4 AI Normal <1.0 [facility] Comment on above: Order Comment: Speci men Type: BLOOD SPECIMENOrdering Facility: [facility] Address: [address] [place] [address] Performed By: #### A NAIFR, 03484-2, 21076-6, 83298-4, 82790-0, 51844-9, 20546-8, 76096-1, 76692-2, 52219-6, 6457-6 ####[facility] LABIA [id number] [place] [address] [place] SULEIMAN SM IgG Ser-aCncon 2024 Dawkins extractable nuclear IgG Qn (S) <0.2 Normal <1.0 [facility] Comment on above: Order Comment: Speci men Type: BLOOD SPECIMENOrdering Facility: [facility] Address: [address] [place] [address] Performed By: #### A NAIFR, 92271-7, 25945-0, 43084-1, 36206-1, 93248-9, 30986-5, 95241-7, 25911-0, 03612-7, 6457-6 ####[facility] LABCLIA [id number] [address] [place] [address] [place] SULEIMAN SS-A Ab Ser-aCncon 11-29 Sjogrens syndrome-A extractable nuclear Ab Qn (S) <0.2 Normal <1.0 [facility] Comment on above: Order Comment: Speci men Type: BLOOD SPECIMENOrdering Facility: [facility] Address: [address] [place] [address] Result Comment: Test Methodology: Multiplex flow immunoassay. Performed By: #### A NAIFR, 09290-8, 54639-1, 51977-2, 44079-5, 04717-3, 51860-6, 05486-2, 82712-1, 17675-6, 6457-6 ####[facility] LABIA [id number] [place] [address] [place] SULEIMAN SS-B Ab Ser-aCncon 11-29 Sjogrens syndrome-B extractable nuclear Ab Qn (S) <0.2 Normal <1.0 [facility] Comment on above: Order Comment: Speci men Type: BLOOD SPECIMENOrdering Facility: [facility] Address: [address] [place] [address] Result Comment: Anti -SSB (anti-La) antibody is used as an aid in diagnosis of a variety of systemic autoimmune diseases, especially for Sjogren's syndrome and systemic lupus erythematosus. Clinical correlation is required.Test Methodology: Multiplex flow immunoassay. Performed By: #### A NAIFR, 73075-0, 17973-8, 69879-7, 79512-1, 67867-0, 43491-5, 54465-2, 01114-2, 96308-5, 6457-6 ####[facility] [id number] [place] [address] [place] HBV core Ab Ser Qlon 025 HBV core Ab Ql (S) Negative Normal Negative [facility] Comment on above: Order Comment: Speci [facility] Type: BLOOD SPECIMENOrdering Facility: [facility] Address: [address] [place] [address] Result Comment: No e vidence of current or past infection with Hepatitis B virus. Should recent infection be suspected, repeat testing may be considered 3-4 weeks after this draw. Performed By: #### 1 6933-4, 5-3, 99607-4 ####[facility] LABCLIA [id number] [place] [address] [place] HBV surface Ab Ql (S)on 11-18 HBV surface Ab Qn (S) <8.00 Normal [facility] Comment on above: Order Comment: Speci men Type: BLOOD SPECIMENOrdering Facility: [facility] Address: [address] [place] [address] Result Comment: <8 m IU/mL: No serological evidence of immunity to Hepatitis B Virus.>/= 8 to <12 mIU/mL: No serological evidence of immunity to Hepatitis B Virus.>/= 12 mIU/mL: Consistent with serological evidence of immunity to Hepatitis B Virus. Performed By: #### 1 6933-4, 5194-3, 71840-7 ####[facility] LABIA [id number] [address] [place] HBV surface Ab Ser Qlon 11-18 HBV surface Ab Ql (S) Negative Normal [facility] Comment on above: Order Comment: Speci men Type: BLOOD SPECIMENOrdering Facility: [facility] Address: [address] [place] [address] Result Comment: No s erological evidence of immunity to Hepatitis B Virus. Performed By: #### 1 6933-4, 5-3, ####[facility] LABIA [id number] [place] [address] [place] HBV surface Ag Ser Qlon 11-18 HBV surface Ag Ql (S) Negative Normal Negative [facility] Comment on above: Order Comment: Speci men Type: BLOOD SPECIMENOrdering Facility: [facility] Address: [address] [place] [address] Performed By: #### 1 6933-4, 5195-3, 26750-9 ####[facility] [id number] [place] [id number] [place] HCV Ab Ser Qlon 11-29-2024 HCV Ab Ql (S) Negative Normal Negative [facility] Comment on above: Order Comment: Ian lassiter Type: BLOOD SPECIMENOrdering Facility: [facility] Address: [address] [place] [address] Result Comment: The result suggests no evidence of active infection with Hepatitis C virus. Should recent infection be suspected, repeat testing may be considered 4-6 weeks after this draw. Performed By: #### 1 6128-1 ####[facility] [id number] [place] [address] [place] HIGH SENSITIVITY TROPONIN To n 11-29-2024 Troponin T.cardiac High sensitivity method [Mass/Vol] 129 ng/L High <12 [facility] Comment on above: Order Comment: Ian lassiter Type: BLOOD SPECIMENOrdering Facility: [facility] Address: [address] [place] [address] Performed By: #### H STNT ####[facility] [id number] [place] [address] [place] Keily-1 extractable nuclear Ab Qn (S)on 11-29-2024 KEILY 1 ANTIBODY QUAL Negative Normal Negative [facility] Comment on above: Order Comment: Ian [facility] Type: BLOOD SPECIMENOrdering Facility: [facility] Address: [address] [place] [address] Result Comment: Anti -KEILY-1 antibody is used as an aid in diagnosis of polymyositis and dermatomyositis especially with pulmonary involvement. A negative result cannot rule out polymyositis or dermatomyositis. Clinical correlation is required.Test Methodology: Multiplex flow immunoassay. Performed By: #### A NAIFR, 44154-7, 98819-9, 06564-7, 66593-3, 20536-5, 54237-2, 81973-0, 36690-0, 26469-7, 6457-6 ####[facility] LABCLIA [id number] [place] [id number] [place] [facility]29 Magnesium [Mass/Vol] 2.3 mg/dL Normal 1.7-2.3 [facility] Comment on above: Order Comment: Speci men Type: BLOOD SPECIMENOrdering Facility: [facility] Address: [address] [place] [address] Performed By: #### 2 4323-8, 42084-8, 2777-1 ####[facility] LABIA [id number] [place] [address] [place] Phosphate SerPl-mCncon 11-29 Phosphate [Mass/Vol] 3.3 mg/dL Normal 2.7-4.8 [facility] Comment on above: Order Comment: Speci men Type: BLOOD SPECIMENOrdering Facility: [facility] Address: [address] [place] [address] Performed By: #### 2 4323-8, 10868-6, 2777-1 ####[facility] [id number] [place] [address] [place] Ribonucleoprotein extractabl e nuclear Ab Qn (S)on 11-29-2024 ANTI-PRODUCTION SUPERVISOR QUAL Negative Normal Negative [facility] Comment on above: Order Comment: Speci men Type: BLOOD SPECIMENOrdering Facility: [facility] Address: [address] [place] [address] Performed By: #### A NAIFR, 97478-9, 62778-0, 06899-0, 55725-6, 87768-6, 61737-2, 22606-1, 93804-3, 13252-6, 6457-6 ####[facility] LABIA [id number] [place] [id number] [place] RIBOSOMAL PRODUCTION SUPERVISOR QUAL Negative Normal Negative [facility] Comment on above: Order Comment: Speci men Type: BLOOD SPECIMENOrdering Facility: [facility] Address: [address] [place] [address] Result Comment: Anti -Ribosomal RNA (Ribosomal P) antibody is used as an aid in diagnosis of systemic autoimmune diseases especially systemic lupus erythematosus and mixed connective tissue disease. Cross-reactivity with Anti-dawkins antibody is not uncommon. Clinical correlation is required.Test Methodology: Multiplex flow immunoassay. Performed By: #### A NAIFR, 32985-6, 31431-8, 98199-9, 17400-9, 82793-7, 99085-0, 32421-7, 37065-8, 06178-4, 6457-6 ####[facility] LABIA [id number] [address] [address] [place] SCL-70 extractable nuclear I gG IA Qn (S)on 11-29-2024 SCLERODERMA AB QUAL Negative Normal Negative [facility] Comment on above: Order Comment: Ian lassiter Type: BLOOD SPECIMENOrdering Facility: [facility] Address: [address] [place] [address] Performed By: #### A NAIFR, 67460-8, 52936-7, 18583-9, 15159-7, 83458-2, 45762-0, 71806-8, 70324-2, 75527-6, 6457-6 ####[facility] LABIA [id number] [address] [place] [address] [place] SCLERODERMA IGG AB <0.2 Normal <1.0 [facility] Comment on above: Order Comment: Ian lassiter Type: BLOOD SPECIMENOrdering Facility: [facility] Address: [address] [place] [address] Result Comment: Scl- 70/Scleroderma antibody test is used as an aid in diagnosis of systemic sclerosis especially the diffuse cutaneous form. A negative result cannot rule out systemic sclerosis. The final interpretation should consider clinical picture and other test results such as anti-centromere antibody. Test Methodology: Multiplex flow immunoassay. Performed By: #### A NAIFR, 29734-1, 99036-7, 34922-7, 54468-5, 49820-8, 56598-0, 14248-7, 16928-1, 12924-4, 6457-6 ####[facility] [id number] [address] [address] [place] Sjogrens syndrome-A extracta ble nuclear Ab Qn (S)on 11-29-2024 SSA ANTIBODY QUAL Negative Normal Negative [facility] Comment on above: Order Comment: Speci men Type: BLOOD SPECIMENOrdering Facility: [facility] Address: [address] [place] [address] Performed By: #### A NAIFR, 62395-8, 39065-1, 12346-0, 16000-3, 31862-9, 19342-4, 52494-8, 71788-4, 07005-4, 6457-6 ####[facility] [id number] [address] [address] [place] Sjogrens syndrome-B extracta ble nuclear Ab Qn (S)on 11-29-2024 SSB ANTIBODY QUAL Negative Normal Negative [facility] Comment on above: Order Comment: Speci men Type: BLOOD SPECIMENOrdering Facility: [facility] Address: [address] [place] [address] Performed By: #### A NAIFR, 01610-6, 22622-3, 25875-0, 90733-4, 18106-6, 21213-1, 18721-9, 03579-8, 63652-8, 6457-6 ####[facility] [id number] [address] [address] [place] Dawkins extractable nuclear Ig G Qn (S)on 11-29-2024 SM ANTIBODY QUAL Negative Normal Negative [facility] Comment on above: Order Comment: Speci men Type: BLOOD SPECIMENOrdering Facility: [facility] Address: [address] [place] [address] Result Comment: Anti -Sm (Dawkins) antibody is used as an aid in diagnosis of systemic lupus erythematosus and its presence is associated with renal disease. A negative result cannot rule out systemic lupus erythematosus. Clinical correlation is required.Test Methodology: Multiplex flow immunoassay. Performed By: #### A NAIFR, 44975-0, 08268-6, 04551-3, 21427-4, 95471-8, 53369-9, 66490-0, 95602-3, 79668-1, 6457-6 ####[facility] LABIA [id number] [address], [address] [place] Urinalysis complete panel (U )on 11-29-2024 Bacteria LM.HPF (Urine sed) [#/Area] Negative Normal Negative [facility] Comment on above: Order Comment: Speci men Type: URINE SPECIMENOrdering Facility: [facility] Address: [address] [place] [address] Performed By: #### 2 4356-8 ####[facility] LABIA [id number] [address] [place] Bilirubin Ql (U) Negative Normal Negative [facility] Comment on above: Order Comment: Speci men Type: URINE SPECIMENOrdering Facility: [facility] Address: [address] [place] [address] Performed By: #### 2 4356-8 ####[facility] LABIA [id number] [address] [place] Clarity (Unsp spec) Clear Normal Clear [facility] Comment on above: Order Comment: Speci men Type: URINE SPECIMENOrdering Facility: [facility] Address: [address] [place] [address] Performed By: #### 2 4356-8 ####[facility] LABIA [id number] [place] [address] [place] Color (U) Yellow Normal Yellow [facility] Comment on above: Order Comment: Speci men Type: URINE SPECIMENOrdering Facility: [facility] Address: [address] [place], [place] [address] Performed By: #### 2 4356-8 ####[facility] LABCLIA [id number] [address], [address] [place] Epithelial cells LM.HPF (Urine sed) [#/Area] None Seen Normal [facility] Comment on above: Order Comment: Speci men Type: URINE SPECIMENOrdering Facility: [facility] Address: [address] [place] [address] Performed By: #### 2 4356-8 ####[facility] LABCLIA [id number] [address], [address] [place] Glucose Test strip (U) [Mass/Vol] Negative Normal Negative [facility] Comment on above: Order Comment: Speci men Type: URINE SPECIMENOrdering Facility: [facility] Address: [address] [place] [address] Performed By: #### 2 4356-8 ####[facility] LABCLIA [id number] [facility] [address], [place] [address] [place] Hemoglobin Ql (U) Negative Normal Negative [facility] Comment on above: Order Comment: Speci men Type: URINE SPECIMENOrdering Facility: [facility] Address: [address] [place] [address] Performed By: #### 2 4356-8 ####[facility] LABCLIA [id number] [address], [facility] [place] Hyaline casts (Urine sed) [#/Area] 0 /[LPF] Normal 0 /LPF [facility] Comment on above: Order Comment: Speci men Type: URINE SPECIMENOrdering Facility: [facility] Address: [address] [place] [address] Performed By: #### 2 4356-8 ####[facility] LABCLIA [id number] [facility] [address], [facility] [place] Ketones Ql (U) Negative Normal Negative [facility] Comment on above: Order Comment: Speci men Type: URINE SPECIMENOrdering Facility: [facility] Address: [address] [place] [address] Performed By: #### 2 4356-8 ####[facility] LABCLIA [id number] [address] [place] [address] [place] Leukocyte esterase Test strip Ql (U) Negative Normal Negative [facility] Comment on above: Order Comment: Speci men Type: URINE SPECIMENOrdering Facility: [facility] Address: [address] [place] [address] Performed By: #### 2 4356-8 ####[facility] LABCLIA [id number] [address], [place] [address] [place] Nitrite Ql (U) Negative Normal Negative [facility] Comment on above: Order Comment: Speci men Type: URINE SPECIMENOrdering Facility: [facility] Address: [address] [place] [address] Performed By: #### 2 4356-8 ####[facility] LABCLIA [id number] [address], [place] [address] [place] pH (U) 6.0 [pH] Normal <8.5 [facility] Comment on above: Order Comment: Speci men Type: URINE SPECIMENOrdering Facility: [facility] Address: [address] [place] [address] Performed By: #### 2 4356-8 ####[facility] LABCLIA [id number] [address], [facility] [place] Protein (U) [Mass/Vol] Trace Abnormal Negative [facility] Comment on above: Order Comment: Speci men Type: URINE SPECIMENOrdering Facility: [facility] Address: [address] [place] [address] Performed By: #### 2 4356-8 ####[facility] LABCLIA [id number] [address] [place] [address] [place] RBC LM.HPF (Urine sed) [#/Area] 0-2 /HPF Normal 0-2 /HPF [facility] Comment on above: Order Comment: Speci men Type: URINE SPECIMENOrdering Facility: [facility] Address: [address] [place] [address] Performed By: #### 2 4356-8 ####[facility] [id number] [place] [address] [place] Specific gravity (U) [Rel density] 1.034 High 1.005-1.030 [facility] Comment on above: Order Comment: Speci men Type: URINE SPECIMENOrdering Facility: [facility] Address: [address] [place] [address] Performed By: #### 2 4356-8 ####[facility] [id number] [address] OF [facility] Urobilinogen Ql (U) 0.2 EU/dL Normal 0.2-1.0 EU/dL [facility] Comment on above: Order Comment: Speci men Type: URINE SPECIMENOrdering Facility: [facility] Address: [address] [place] [address] Performed By: #### 2 4356-8 ####[facility] [id number] [address] [place] WBC LM.HPF (Urine sed) [#/Area] 0-5 /HPF Normal 0-5 /HPF [facility] Comment on above: Order Comment: Speci men Type: URINE SPECIMENOrdering Facility: [facility] Address: [address] [place] [address] Performed By: #### 2 4356-8 ####[facility] LABIA [id number] [place] [address] [place] XR ABDOMEN 1V SUPINEon 11-29 XR ABDOMEN 1V SUPINE Normal [facility] dsDNA Ab Ser Ql CLIFon 11-29 DNA double strand Ab IF Crithidia luciliae Ql (S) Negative Normal Negative [facility] Comment on above: Order Comment: Speci men Type: BLOOD SPECIMENOrdering Facility: [facility] Address: [address] [place] [address] Result Comment: Crit hidia luciliae assay is used as an aid in diagnosis of systemic lupus erythematosus (SLE). A negative result cannot rule out SLE. Low positive titers may be seen with other systemic autoimmune diseases. Clinical correlation is required. Performed By: #### A NAIFR, 18819-4, 58832-5, 77771-3, 92210-0, 15556-5, 59065-8, 16484-5, 77260-4, 50676-8, 6457-6 ####[facility] LABCLIA [id number] [place] [address] [place] 12 Lead EKGon 11-28-2024 12 Lead EKG [facility] [address] [place] [address] 12 Lead EKG 11/28/24 1752 MR#: [id number] Acct: [id number] Name: LEANA CAMEJO Rep #: [id number] : 1940 84 From: Beronica Turcios MD [...] Abnormal ECG Confirmed by NICO LAWTON, RICHARD ([id number]), loan expeditor BENITA NUNN ([id number]) on 12/04/2024 11:27:45 AM Referred By: ELGIN Confirmed By: RICHARD TURCIOS MD 12/04/24 1127 Date Beronica Turcios MD CC: Dr. Nate Gray MD; Dr. Dallas Reed MD Signed Normal [facility] Abdomen/Pelvis W IV Cont ONL Yon 11-28-2024 Abdomen/Pelvis W IV Cont ONLY [facility] Imaging Services [address] [place], [place] [address] Abdomen/Pelvis W IV Cont ONLY MR#: [id number] Acct: [id number] Name: LEANA CAMEJO Rep #: [id number] : 1940 M 84 From: Alexandru Lucero i, MD PCP: Dr. Dallas Reed MD Status: PRE ER Study: Abdomen/Pelvis W IV Cont ONLY Date of Exam: Exam# [id number] Ordering Dr: Nate Gray MD PROCEDURE: ABDOMEN/PELVIS [...] abnormal enhancement within the sac of the [place] aorta which are consistent with endoleak [...] Interval increase in contrast blush within the [place] aortic sac. These finding is consistent [...] use of iterative reconstruction technique). Reading Location: [facility] CC: Dr. Nate Gray MD; Dr. Dallas Reed MD Front Office Medical Assistant: Signed Normal [facility] Absolute lymphocyte countOrd ered By: Nate Gray on 11-28-2024 Lymphocytes Auto (Unsp spec) [#/Vol] 0.86 10*3/uL 0.83-4.51 [facility] Absolute neutrophil countOrd ered By: Nate Gray on 11-28-2024 Neutrophils (Bld) [#/Vol] 3.6 10*3/uL 2.0-7.7 [facility] Anion gap in Serum or Plasma Ordered By: Nate Gray on 11-28-2024 Anion gap [Moles/Vol] 13 mmol/L 5-15 [facility] Automated lymphocyte count a s percentage of total leukocytesOrdered By: Nate Gray on 11-28-2024 Lymphocytes/100 WBC Auto (Unsp spec) 17.0 % Low 19-41 [facility] BUN/creatinine ratioOrdered By: Nate Gray on 11-28-2024 Urea nitrogen/Creatinine [Mass ratio] 26.9 mg/mg High 10-20 [facility] Bacteria Bld Culton 11-29-19 25 Bacteria identified Cx Nom (Bld) CULTURE, BLOOD: No growth 5 days Normal [facility] Comment on above: Performed By: #### 6 00-7 ####[facility] LABCLIA [id number] [address] [address] [place] Bacteria identified Cx Nom (Bld) CULTURE, BLOOD: No growth 5 days Normal [facility] Comment on above: Performed By: #### 6 00-7 ####[facility] LABCLIA [id number] [address] [address] [place] Basophil percentageOrdered B y: Nate Gray on 11-28-2024 Basophils/100 WBC (Bld) 0.6 % 0-1 [facility] Bilirubin Test strip Ql (U)O rdered By: Nate Gray on 11-28-2024 Bilirubin Ql (U) Negative Negative [facility] Bilirubin, totalOrdered By: Nate Gray on 11-28-2024 Bilirubin [Mass/Vol] 0.47 mg/dL 0.00-1.30 [facility] Blood manual differential co mment interpretation (narrative result)Ordered By: Nate Gray on 11-28-2024 Manual differential comment Juvenal (Bld) [Interp] SEE COMMENT [facility] Comment on above: THROMBOCYTOPENIA NOT ED CBC W/Diff, Automatedon 11-18 Anisocytosis Ql (Bld) RARE Normal [facility] Comment on above: Performed By: #### L 501.2450, L100.0100, BTS, L500.4050 #### [facility] [address] [place], [address] MACROCYTOSIS RARE Normal [facility] Comment on above: Performed By: #### L 501.2450, L100.0100, BTS, L500.4050 #### [facility] [address] [place], [address] PLT EST MOD DEC Normal ADEQ [facility] Comment on above: Performed By: #### L 501.2450, L100.0100, BTS, L500.4050 #### [facility] [address] [place], [address] RED CELL MORPH N CHROM Normal NORM C C [facility] Comment on above: Performed By: #### L 501.2450, L100.0100, BTS, L500.4050 #### [facility] [address] [place], [address] SMEAR COMMENT SEE COMMENT Normal [facility] Comment on above: Result Comment: THRO MBOCYTOPENIA NOTED Performed By: #### L 501.2450, L100.0100, BTS, L500.4050 #### [facility] [address] [place], [address] CBC panel Auto (Bld)on 11-28 Erythrocyte distribution width (RBC) [Ratio] 14.9 % Normal 11.5-15.0 [facility] Comment on above: Order Comment: Speci men Type: BLOOD SPECIMENOrdering Facility: [facility] Address: [address] [place] [address] Performed By: #### 3 1201-7, 36660-2 ####[facility] LABCLIA [id number] [address] [address] [place] Hematocrit (Bld) [Volume fraction] 33.6 % Low 39.0-51.0 [facility] Comment on above: Order Comment: Speci men Type: BLOOD SPECIMENOrdering Facility: [facility] Address: [address] [place] [address] Performed By: #### 3 1201-7, 40580-1 ####[facility] [id number] [place] [address] [place] Hemoglobin (Bld) [Mass/Vol] 11.0 g/dL Low 13.0-17.0 [facility] Comment on above: Order Comment: Speci men Type: BLOOD SPECIMENOrdering Facility: [facility] Address: [address] [place] [address] Performed By: #### 3 1201-7, 60271-8 ####[facility] [id number] [place] [address] [place] MCH (RBC) [Entitic mass] 30.0 pg Normal 26.0-34.0 [facility] Comment on above: Order Comment: Speci men Type: BLOOD SPECIMENOrdering Facility: [facility] Address: [address] [place] [address] Performed By: #### 3 1201-7, 27488-8 ####[facility] [id number] [address] [place] MCHC (RBC) [Mass/Vol] 32.7 g/dL Normal 30.5-36.0 [facility] Comment on above: Order Comment: Speci men Type: BLOOD SPECIMENOrdering Facility: [facility] Address: [address] [place] [address] Performed By: #### 3 1201-7, 92377-5 ####[facility] [id number] [place] [address] [place] MCV (RBC) [Entitic vol] 91.6 fL Normal 80.0-100.0 [facility] Comment on above: Order Comment: Speci men Type: BLOOD SPECIMENOrdering Facility: [facility] Address: [address] [place] [address] Performed By: #### 3 1201-7, 35881-6 ####[facility] LABCLIA [id number] [place] [address] [place] Nucleated RBC (Bld) [#/Vol] 10*3/uL Normal <0.01 [facility] Comment on above: Order Comment: Speci men Type: BLOOD SPECIMENOrdering Facility: [facility] Address: [address] [place] [address] Performed By: #### 3 1201-7, 60186-5 ####[facility] LABIA [id number] [place] [address] [place] Platelet mean volume (Bld) [Entitic vol] 10.2 fL Normal 9.0-12.7 [facility] Comment on above: Order Comment: Speci men Type: BLOOD SPECIMENOrdering Facility: [facility] Address: [address] [place] [address] Performed By: #### 3 1201-7, 81162-2 ####[facility] LABIA [id number] [place] [address] [place] Platelets (Bld) [#/Vol] 85 10*3/uL Low 150-400 [facility] Comment on above: Order Comment: Speci men Type: BLOOD SPECIMENOrdering Facility: [facility] Address: [address] [place], [place] [address] Performed By: #### 3 1201-7, 55543-7 ####[facility] LABIA [id number] [place] [address] [place] RBC (Bld) [#/Vol] 3.67 10*6/uL Low 4.20-6.00 [facility] Comment on above: Order Comment: Speci men Type: BLOOD SPECIMENOrdering Facility: [facility] Address: [address] [place] [address] Performed By: #### 3 1201-7, 22395-8 ####[facility] LABCLIA [id number] [address] [address] [place] WBC (Bld) [#/Vol] 4.84 10*3/uL Normal 3.70-11.00 [facility] Comment on above: Order Comment: Speci men Type: BLOOD SPECIMENOrdering Facility: [facility] Address: [address] [place] [address] Performed By: #### 3 1201-7, 87753-0 ####[facility] LABCLIA [id number] [place] [address] [place] CNCRITCRon 11-28-2024 CNCRITCR Normal [facility] CNPNon 11-28-2024 CNPN Normal [facility] CONFIRM BLOOD TYPEon 025 ABO O Normal [facility] Comment on above: Order Comment: Speci men Type: BLOOD SPECIMENOrdering Facility: [facility] Address: [address] [place] [address] Performed By: #### C ONABO ####[facility] BANKCLIA [id number] [place] [address] [place] Rh Nom (Bld) Negative Normal [facility] Comment on above: Order Comment: Speci men Type: BLOOD SPECIMENOrdering Facility: [facility] Address: [address] [place] [address] Performed By: #### C ONABO ####[facility] BLO[facility] BANKCLIA [id number] [place] [address] [place] ABD/PEL W IVCONon 025 CT ABD/PEL W IVCON Normal [facility] CT Abdomen and Pelvis W cont rast Adina 11-28-2024 IMPRESSION: 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 There has been interval enlargement of the cow [place] lumen consistent with a hemodynamically significant leak. Enlargement pancreatic cystic mass. When condition permits suggest correlation with contrast enhanced pancreatic MRI. Diverticulosis Urinary bladder diverticulum. Front Office Medical Assistant: PSCB Transcribe Date/Time: Nov 28 2024 4:21P Dictated by : TONE GA MD This examination was interpreted and the report reviewed and electronically signed by: TONE GA MD on Nov 28 2024 4:40PM [facility] DIVISION OF RADIOLOGY * * *Final Report* * * DATE OF EXAM: Nov 28 2024 3:49PM [facility] 0530 - CT ABD/PEL W IVCON / [...] endoluminal stenting. The maximal diameter of the cow [place] abdominal aorta is 6.0 x 6.0 cm. This is enlarged from prior dimensions of 5.4 x 5.6 cm. There is irregular contrast enhancement in the LEFT side of the [place] lumen similar to prior study. The [...] Localizer images: Unremarkable. DIVISION OF RADIOLOGY Provider, [facility] - 11/28/2024 * * *Final Report* * * DATE OF EXAM: Nov 28 2024 3:49PM [facility] 0530 - CT ABD/PEL W IVCON / [...] endoluminal stenting. The maximal diameter of the [place] abdominal aorta is 6.0 x 6.0 cm. This is enlarged from prior dimensions of 5.4 x 5.6 cm. There is irregular contrast enhancement in the LEFT side of the [place] lumen similar to prior study. The [...] There has been interval enlargement of the [place] lumen consistent with a hemodynamically significant leak. Enlargement pancreatic cystic mass. When condition permits suggest correlation with contrast enhanced pancreatic MRI. Diverticulosis Urinary bladder diverticulum. Front Office Medical Assistant: NATALY Transcribe Date/Time: Nov 28 2024 4:21P Dictated by : TONE GA MD This examination was interpreted and the report reviewed and electronically signed by: TONE GA MD on Nov 28 2024 4:40PM EST [facility] Radiology Study observation (narrative) [facility] CT Abdomen and Pelvis W cont rast IVOrdered By: Ccf Provider on 11-28-2024 [facility] Carbon dioxide, total [Moles /volume] in Central venous bloodOrdered By: Nate Gray on 11-28-2024 CO2 [Moles/Vol] 24.5 mmol/L 21.0-32.0 [facility] Chloride assayOrdered By: Emory Gray on 11-28-2024 Chloride [Moles/Vol] 99 mmol/L 98-108 [facility] Comprehensive Metabolic Prof ilon 11-28-2024 Albumin [Mass/Vol] 4.0 g/dL Normal 3.4-4.8 [facility] Comment on above: Performed By: #### L 501.2450, L100.0100, BTS, L500.4050 #### [facility] [address] [place], [address] Albumin/Globulin [Mass ratio] 1.3 {ratio} Normal 0.9-2.4 [facility] Comment on above: Performed By: #### L 501.2450, L100.0100, BTS, L500.4050 #### [facility] [address] [place], [address] ALK PHOS 66 U/L Normal 40-129 [facility] Comment on above: Performed By: #### L 501.2450, L100.0100, BTS, L500.4050 #### [facility] [address] [place], [address] ALT [Catalytic activity/Vol] 24 U/L Normal <=46 [facility] Comment on above: Performed By: #### L 501.2450, L100.0100, BTS, L500.4050 #### [facility] [address] [place], [address] AST [Catalytic activity/Vol] 33 U/L Normal <=37 [facility] Comment on above: Performed By: #### L 501.2450, L100.0100, BTS, L500.4050 #### [facility] [address] [place], [address] Bilirubin [Mass/Vol] 0.47 mg/dL Normal 0.00-1.30 [facility] Comment on above: Performed By: #### L 501.2450, L100.0100, BTS, L500.4050 #### [facility] [address] [place], [address] BUN/CRE 26.9 RATIO High 10-20 [facility] Comment on above: Performed By: #### L 501.2450, L100.0100, BTS, L500.4050 #### [facility] [address] [place], [address] Calcium [Mass/Vol] 9.4 mg/dL Normal 7.6-11.0 [facility] Comment on above: Performed By: #### L 501.2450, L100.0100, BTS, L500.4050 #### [facility] [address] [place], [address] Chloride [Moles/Vol] 99 mmol/L Normal 98-108 [facility] Comment on above: Performed By: #### L 501.2450, L100.0100, BTS, L500.4050 #### [facility] [address] [place], [address] CO2 [Moles/Vol] 24.5 mmol/L Normal 21.0-32.0 [facility] Comment on above: Performed By: #### L 501.2450, L100.0100, BTS, L500.4050 #### [facility] [address] [place], [address] Creatinine [Mass/Vol] 1.43 mg/dL High 0.70-1.20 [facility] Comment on above: Performed By: #### L 501.2450, L100.0100, BTS, L500.4050 #### [facility] [address] [place], [address] ECRCL 37.20 ml/min Low 50-250 [facility] Comment on above: Performed By: #### L 501.2450, L100.0100, BTS, L500.4050 #### [facility] [address] [place], [address] GAP 13 Normal 5-15 [facility] Comment on above: Performed By: #### L 501.2450, L100.0100, BTS, L500.4050 #### [facility] [address] [place], [address] GFR/1.73 sq M.predicted among non-blacks MDRD (S/P/Bld) [Vol rate/Area] 48 mL/min/{1.73_m2} Low >60 [facility] Comment on above: Result Comment: mL/m in/1.73m2 CKD-EPI Creatinine Equation (2020) Performed By: #### L 501.2450, L100.0100, BTS, L500.4050 #### [facility] [address] [place], [address] Globulin (S) [Mass/Vol] 3.2 g/dL Normal 2.2-4.2 [facility] Comment on above: Performed By: #### L 501.2450, L100.0100, BTS, L500.4050 #### [facility] [address] [place], [address] Glucose [Mass/Vol] 140 mg/dL High 70-99 [facility] Comment on above: Performed By: #### L 501.2450, L100.0100, BTS, L500.4050 #### [facility] [address] [place], [address] Potassium [Moles/Vol] 4.0 mmol/L Normal 3.3-5.1 [facility] Comment on above: Performed By: #### L 501.2450, L100.0100, BTS, L500.4050 #### [facility] [address] [place], [address] Sodium [Moles/Vol] 137 mmol/L Normal 133-145 [facility] Comment on above: Performed By: #### L 501.2450, L100.0100, BTS, L500.4050 #### [facility] [address] [place], [address] T PROT 7.2 g/dL Normal 5.9-8.4 [facility] Comment on above: Performed By: #### L 501.2450, L100.0100, BTS, L500.4050 #### [facility] [address] [place], [address] Urea nitrogen [Mass/Vol] 39 mg/dL High 4-19 [facility] Comment on above: Performed By: #### L 501.2450, L100.0100, BTS, L500.4050 #### [facility] [address] [place], [address] Comprehensive metabolic 2000 panelon 11-28-2024 Albumin [Mass/Vol] 3.6 g/dL Low 3.9-4.9 [facility] Comment on above: Order Comment: Speci men Type: BLOOD SPECIMENOrdering Facility: [facility] Address: [address] [place], [place] [address] Performed By: #### 3 024-7, 25078-8, HSTNT, 3016-3 ####[facility] LABCLIA [id number] [address] [address] [place] ALP [Catalytic activity/Vol] 66 U/L Normal 38-113 [facility] Comment on above: Order Comment: Speci men Type: BLOOD SPECIMENOrdering Facility: [facility] Address: [address] [id number] Performed By: #### 3 024-7, 36129-7, HSTNT, 3016-3 ####[facility] LABCLIA [id number] [address] [address] [place] ALT [Catalytic activity/Vol] 21 U/L Normal 10-54 [facility] Comment on above: Order Comment: Speci men Type: BLOOD SPECIMENOrdering Facility: [facility] Address: [address] [place], [place] [address] Performed By: #### 3 024-7, 58360-5, HSTNT, 3016-3 ####[facility] LABCLIA [id number] [place] [id number] [place] Anion gap [Moles/Vol] 10 mmol/L Normal 8-15 [facility] Comment on above: Order Comment: Speci men Type: BLOOD SPECIMENOrdering Facility: [facility] Address: [address] [place], [place] [address] Performed By: #### 3 024-7, 61337-7, HSTNT, 6-3 ####[facility] LABCLIA [id number] [place] [id number] [place] AST [Catalytic activity/Vol] 24 U/L Normal 14-40 [facility] Comment on above: Order Comment: Speci men Type: BLOOD SPECIMENOrdering Facility: [facility] Address: [address] [place], [place] [address] Performed By: #### 3 024-7, 79994-3, HSTNT, 6-3 ####[facility] LABCLIA [id number] [place] [address] [place] Bilirubin [Mass/Vol] 0.3 mg/dL Normal 0.2-1.3 [facility] Comment on above: Order Comment: Speci men Type: BLOOD SPECIMENOrdering Facility: [facility] Address: [address] [place], [place] [address] Performed By: #### 3 024-7, 47704-9, HSTNT, 6-3 ####[facility] LABCLIA [id number] [place] [address] [place] Calcium [Mass/Vol] 8.8 mg/dL Normal 8.5-10.2 [facility] Comment on above: Order Comment: Speci men Type: BLOOD SPECIMENOrdering Facility: [facility] Address: [address] [place] [address] Performed By: #### 3 024-7, 21181-0, HSTNT, 6-3 ####[facility] LABCLIA [id number] [place] [address] [place] Chloride [Moles/Vol] 102 mmol/L Normal 98-107 [facility] Comment on above: Order Comment: Speci men Type: BLOOD SPECIMENOrdering Facility: [facility] Address: [address] [place] [address] Performed By: #### 3 024-7, 40920-1, HSTNT, 6-3 ####[facility] LABIA [id number] [place] [address] [place] CO2 [Moles/Vol] 26 mmol/L Normal 22-30 [facility] Comment on above: Order Comment: Speci men Type: BLOOD SPECIMENOrdering Facility: [facility] Address: [address] [place] [address] Performed By: #### 3 024-7, 29314-9, HSTNT, 6-3 ####[facility] LABIA [id number] [place] [address] [place] Creatinine [Mass/Vol] 1.56 mg/dL High 0.73-1.22 [facility] Comment on above: Order Comment: Speci men Type: BLOOD SPECIMENOrdering Facility: [facility] Address: [address] [place] [address] Performed By: #### 3 024-7, 84801-1, HSTNT, 6-3 ####[facility] LABIA [id number] [place] [address] [place] Creatinine and Glomerular filtration rate.predicted panel (S/P/Bld) 44 mL/min/1.73m??? Low >=60 [facility] Comment on above: Order Comment: Speci men Type: BLOOD SPECIMENOrdering Facility: [facility] Address: [address] [place] [address] Result Comment: Keara mated Glomerular Filtration Rate [...] actual GFR. Performed By: #### 3 024-7, 25960-4, HSTNT, 3015-3 ####[facility] LABIA [id number] [place] [address] [place] Glucose [Mass/Vol] 120 mg/dL High 74-99 [facility] Comment on above: Order Comment: Speci men Type: BLOOD SPECIMENOrdering Facility: [facility] Address: [address] [place] [address] Result Comment: The [place] [employer] Association (ADA) provides guidance for cutoff [...] Standards of Medical Care in Diabetes 2016, [place] [employer]. Diabetes Care. 2016.39(Suppl 1). Performed By: #### 3 024-7, 16240-7, HSTNT, 3015-3 ####[facility] LABIA [id number] [place] [id number] [place] Protein [Mass/Vol] 6.3 g/dL Normal 6.3-8.0 [facility] Comment on above: Order Comment: Speci men Type: BLOOD SPECIMENOrdering Facility: [facility] Address: [address] [phone] Performed By: #### 3 024-7, 20613-3, HSTNT, 3016-3 ####[facility] LABCLIA [id number] [place] [address] [place] Sodium [Moles/Vol] 138 mmol/L Normal 136-144 [facility] Comment on above: Order Comment: Speci men Type: BLOOD SPECIMENOrdering Facility: [facility] Address: [address] [place] [address] Performed By: #### 3 024-7, 96520-6, HSTNT, 3016-3 ####[facility] LABCLIA [id number] [place] [address] [place] Urea nitrogen [Mass/Vol] 41 mg/dL High 9-24 [facility] Comment on above: Order Comment: Speci men Type: BLOOD SPECIMENOrdering Facility: [facility] Address: [address] [place] [address] Performed By: #### 3 024-7, 98948-1, HSTNT, 3016-3 ####[facility] LABCLIA [id number] [place] [id number] [place] ECG COMPLETEon 11-28-2024 ECG COMPLETE Normal [facility] ECHO LIMITEDon 11-28-2024 ECHO LIMITED Normal [facility] Emergency Department Summary on 11-28-2024 Emergency Department Summary [facility] Medical Records Department [address] [place] [address] Emergency Department Summary 11/28/24 MR#: [id number] Acct: [id number] Name: LEANA CAMEJO Rep #: [id number] : 1940 84 From: Nate Gray MD [...] for 5 days and was seen by [facility] physician's office yesterday. They did a [...] (From Allergy Other Verified 11/28/24 17:53 Crestor) Srmwuuo-FDA-XgX Reductase Allergy Other Verified 11/28/24 17:53 Inhibitor (Rvqykzq-Ktq-Ujc Reductase Inhibitor) Family History Father Lung cancer [...] dysuria. Constitutio (more content not included)... Normal [facility] Eosinophil percentageOrdered By: Nate Gray on 11-28-2024 Eosinophils/100 WBC (Bld) 1.6 % 0-5 [facility] Epithelial cells.squamous LM Ql (Urine sed)Ordered By: Nate Gray on 11-28-2024 Epithelial cells.squamous LM.HPF (Urine sed) [#/Area] 0 /[HPF] 0-5 [facility] Erythrocyte distribution wid th ratioOrdered By: Nate Gray on 11-28-2024 Erythrocyte distribution width (RBC) [Ratio] 14.9 % High 11.6-14.6 [facility] Erythrocyte distribution wid th standard deviationOrdered By: Nate Gray on 11-28-2024 Erythrocyte distribution width (RBC) [Entitic vol] 51.1 fL High 35.1-43.9 [facility] Erythrocyte distribution width (RBC) [Ratio] 51.1 fl High 35.1-43.9 [facility] Erythrocyte morphology asses smentOrdered By: Nate Gray on 11-28-2024 RBC morphology finding Nom (Bld) N CHROM NORMAL NORM C&C [facility] Estimation of creatinine maira aranceOrdered By: Nate Gray on 11-28-2024 Estimated Creatinine Clearance Calc 37.20 ml/min Low 50-250 [facility] GFR/1.73 sq M.predicted gabi g non-blacks MDRD (S/P/Bld) [Vol rate/Area]Ordered By: Nate Gray on 11-28-2024 Estimated GFR (MDRD) Non-Af Amer 48 Low >60 [facility] Comment on above: mL/min/1.73m2 CKD-EP I Creatinine Equation (2020) Gas + CO Pnl BldVon 11-29-19 25 Potassium [Moles/Vol] 4.2 mmol/L Normal 3.7-5.1 [facility] Comment on above: Order Comment: Speci men Type: VENOUS BLOOD SPECIMENOrdering Facility: [facility] Address: [address] [place] [address] Performed By: #### 2 4344-4 ####[facility] LABCLIA [id number] [place] [address] [place] Order Comment: Speci men Type: BLOOD SPECIMENOrdering Facility: [facility] Address: [address] [place] [address] Performed By: #### 3 024-7, 16173-3, HSTNT, 3016-3 ####[facility] LABIA [id number] [place] [address] [place] Gas and Carbon monoxide pane l (BldV)on 11-28-2024 Base excess Calc (BldV) [Moles/Vol] 4 mmol/L High 0-2 [facility] Comment on above: Order Comment: Speci men Type: VENOUS BLOOD SPECIMENOrdering Facility: [facility] Address: [address] [place] [address] Performed By: #### 2 4344-4 ####[facility] LABIA [id number] [place] [address] [place] Body temperature 98.6 [degF] Normal [facility] Comment on above: Order Comment: Speci men Type: VENOUS BLOOD SPECIMENOrdering Facility: [facility] Address: [address] [place] [address] Performed By: #### 2 4344-4 ####[facility] LABIA [id number] [place] [address] [place] Calcium.ionized (Bld) [Mass/Vol] 1.24 mmol/L Normal 1.08-1.30 [facility] Comment on above: Order Comment: Speci men Type: VENOUS BLOOD SPECIMENOrdering Facility: [facility] Address: [address] [place] [address] Performed By: #### 2 4344-4 ####[facility] LABIA [id number] [place] [address] [place] Calcium.ionized adjusted to pH 7.4 (BldA) [Moles/Vol] 1.25 mmol/L Normal 1.08-1.30 [facility] Comment on above: Order Comment: Speci men Type: VENOUS BLOOD SPECIMENOrdering Facility: [facility] Address: [address] [place] [address] Performed By: #### 2 4344-4 ####[facility] LABCLIA [id number] [place] [address] [place] Carboxyhemoglobin (BldV) [Mass fraction] 1.6 % Normal 0.0-2.0 [facility] Comment on above: Order Comment: Speci men Type: VENOUS BLOOD SPECIMENOrdering Facility: [facility] Address: [address] [place] [address] Result Comment: Carb oxyhemoglobin Reference Range for Smokers: 2.0-8.0% Performed By: #### 2 4344-4 ####[facility] LABCLIA [id number] [place] [address] [place] CO2 (BldV) [Partial pressure] 44 mm[Hg] Normal 42-55 [facility] Comment on above: Order Comment: Speci men Type: VENOUS BLOOD SPECIMENOrdering Facility: [facility] Address: [address] [place] [address] Performed By: #### 2 4344-4 ####[facility] LABCLIA [id number] [place] [address] [place] Glucose [Mass/Vol] 119 mg/dL High 60-105 [facility] Comment on above: Order Comment: Speci men Type: VENOUS BLOOD SPECIMENOrdering Facility: [facility] Address: [address] [place] [address] Performed By: #### 2 4344-4 ####[facility] LABCLIA [id number] [place] [id number] [place] HCO3 (Bld) [Moles/Vol] 28 mmol/L Normal 24-28 [facility] Comment on above: Order Comment: Speci men Type: VENOUS BLOOD SPECIMENOrdering Facility: [facility] Address: [address] [place] [address] Performed By: #### 2 4344-4 ####[facility] LABCLIA [id number] [place] [id number] [place] Hematocrit (Bld) [Volume fraction] 35.6 % Low 39.0-51.0 [facility] Comment on above: Order Comment: Speci men Type: VENOUS BLOOD SPECIMENOrdering Facility: [facility] Address: [address] [place] [address] Performed By: #### 2 4344-4 ####[facility] LABCLIA [id number] [place] [address] [place] Hemoglobin (Bld) [Mass/Vol] 11.5 g/dL Low 13.0-17.0 [facility] Comment on above: Order Comment: Speci men Type: VENOUS BLOOD SPECIMENOrdering Facility: [facility] Address: [address] [place] [address] Performed By: #### 2 4344-4 ####[facility] LABCLIA [id number] [place] [address] [place] Lactate [Moles/Vol] 0.9 mmol/L Normal 0.5-2.2 [facility] Comment on above: Order Comment: Speci men Type: VENOUS BLOOD SPECIMENOrdering Facility: [facility] Address: [address] [place] [address] Performed By: #### 2 4344-4 ####[facility] LABCLIA [id number] [place] [address] [place] LITERS 3 Liters/min Normal [facility] Comment on above: Order Comment: Speci men Type: VENOUS BLOOD SPECIMENOrdering Facility: [facility] Address: [address] [place], [place] [address] Performed By: #### 2 4344-4 ####[facility] LABCLIA [id number] [place] [id number] [place] Methemoglobin (Bld) [Mass fraction] 0.7 % Normal 0.0-1.5 [facility] Comment on above: Order Comment: Speci men Type: VENOUS BLOOD SPECIMENOrdering Facility: [facility] Address: [address] [place] [address] Performed By: #### 2 4344-4 ####[facility] LABCLIA [id number] [address] [place] [address] [place] O2 THERAPY NC = Nasal Cannula Normal [facility] Comment on above: Order Comment: Speci men Type: VENOUS BLOOD SPECIMENOrdering Facility: [facility] Address: [address] [place], [place] [address] Performed By: #### 2 4344-4 ####[facility] LABCLIA [id number] [address] [address] [place] Oxygen (BldV) [Partial pressure] 53 mm[Hg] High 35-45 [facility] Comment on above: Order Comment: Speci men Type: VENOUS BLOOD SPECIMENOrdering Facility: [facility] Address: [address] [place], [place] [address] Performed By: #### 2 4344-4 ####[facility] LABCLIA [id number] [address] [address] [place] Oxygen saturation in Venous blood 88 % High 60-85 [facility] Comment on above: Order Comment: Speci men Type: VENOUS BLOOD SPECIMENOrdering Facility: [facility] Address: [address] [place] [address] Performed By: #### 2 4344-4 ####[facility] LABCLIA [id number] [address] [place] [address] [place] Oxyhemoglobin (BldV) [Mass fraction] 86 % High 60-85 [facility] Comment on above: Order Comment: Speci men Type: VENOUS BLOOD SPECIMENOrdering Facility: [facility] Address: [address] [place] [address] Performed By: #### 2 4344-4 ####[facility] LABCLIA [id number] [address] [address] [place] pH (BldV) 7.42 [pH] Normal 7.32-7.42 [facility] Comment on above: Order Comment: Speci men Type: VENOUS BLOOD SPECIMENOrdering Facility: [facility] Address: [address] [place] [address] Performed By: #### 2 4344-4 ####[facility] LABCLIA [id number] [place] [id number] [place] Sodium [Moles/Vol] 137 mmol/L Normal 136-144 [facility] Comment on above: Order Comment: Speci men Type: VENOUS BLOOD SPECIMENOrdering Facility: [facility] Address: [address] [place] [address] Performed By: #### 2 4344-4 ####[facility] LABCLIA [id number] [address] [place] Glomerular filtration rate ( GFR) estimation/1.73 sq m using serum, plasma, or whole bOrdered By: Nate Gray on 11-28-2024 GFR/1.73 sq M.predicted among non-blacks MDRD (S/P/Bld) [Vol rate/Area] 48 mL/min/{1.73_m2} Low >60 [facility] Comment on above: mL/min/1.73m2 CKD-EP I Creatinine Equation (2020) Glucose Ql (U)Ordered By: Emory Gray on 11-28-2024 Urine Glucose (UA) Normal mg/dl Normal [facility] HIGH SENSITIVITY TROPONIN To n 11-28-2024 Troponin T.cardiac High sensitivity method [Mass/Vol] 131 ng/L High <12 [facility] Comment on above: Order Comment: Speci men Type: BLOOD SPECIMENOrdering Facility: [facility] Address: [address] [place] [address] Performed By: #### 3 024-7, 38585-3, HSTNT, 3016-3 ####[facility] LABCLIA [id number] [place] [address] [place] HISTORY PHYSICALon 5 HISTORY PHYSICAL Normal [facility] HIV 1+2 Ab IA Qlon 5 HIV 1 and 2 Ab IA.rapid Nom (S/P/Bld) Normal [facility] Comment on above: Order Comment: Speci men Type: BLOOD SPECIMENOrdering Facility: [facility] Address: [address] [place] [address] Result Comment: Test not indicated. Performed By: #### 3 1201-7, 65680-2 ####[facility] LABCLIA [id number] [place] [address] [place] HIV 1+2 Ab+HIV1 p24 Ag IA Ql Non-Reactive Normal Nonreactive [facility] Comment on above: Order Comment: Speci men Type: BLOOD SPECIMENOrdering Facility: [facility] Address: [address] [place] [address] Performed By: #### 3 1201-7, 67852-7 ####[facility] LABCLIA [id number] [address] [place] HIV immunoassay testing algorithm interpretation (S/P/Bld) [Interp] Normal [facility] Comment on above: Order Comment: Speci men Type: BLOOD SPECIMENOrdering Facility: [facility] Address: [address] [place] [address] Result Comment: No e vidence of HIV-1 or HIV-2 infection. Should recent infection be suspected, repeat testing may be considered 2-3 weeks after this draw.[place] Rev. Code 3701.243(E): This information has been [...] or diagnoses. Performed By: #### 3 1201-7, 64932-3 ####[facility] LABCLIA [id number] [place] [id number] [place] Hematocrit Auto (Bld) [Volum e fraction]Ordered By: Nate Gray on 11-28-2024 Hematocrit (Bld) [Volume fraction] 38.5 % Low 40-54 [facility] Hemoglobin measurementOrdere d By: Nate Gray on 11-28-2024 Hemoglobin (Bld) [Mass/Vol] 12.4 g/dL Low 13.0-16.5 [facility] Immature granulocytes/100 WB C Auto (Bld)Ordered By: Nate Gray on 11-28-2024 Immature granulocytes/100 WBC (Bld) 0.400 % 0.0-0.9 [facility] Comment on above: IG% - Immature Granu locytes (promyelocytes, myelocytes and metamyelocytes) > 1% indicates that a LEFT SHIFT is Present. Ketones Test strip Ql (U)Ord ered By: Nate Gray on 11-28-2024 Ketones Ql (U) Negative Negative [facility] - Chemistry and C hemistry - challengeOrdered By: Nate Gray on 11-28-2024 AST [Catalytic activity/Vol] 33 U/L <38 [facility] - Hematology and Cell countsOrdered By: Nate Gray on 11-28-2024 Anisocytosis Ql (Bld) R[facility] Lipaseon 11-28-2024 Lipase [Catalytic activity/Vol] 38 U/L Normal 13-75 [facility] Comment on above: Result Comment: Plenila rose note: LIPASE revised reference range effective 22. New Lipase methodology. Expected to produce lower values than the previous assay method. NEW Reference Range: 13 - 75 U/L Performed By: #### L 501.2450, L100.0100, BTS, L500.4050 #### [facility] [address] [place], [address] Lipase measurementOrdered By : Nate Gray on 11-28-2024 Lipase [Catalytic activity/Vol] 38 U/L 13-75 [facility] Comment on above: Please note:LIPASE r evised reference range effective 22. New Lipase methodology. Expected to produce lower values than the previous assay method. NEW Reference Range: 13 - 75 U/L Lymphocytes Auto (Unsp spec) [#/Vol]Ordered By: Nate Gray on 11-28-2024 Lymphocytes (Bld) [#/Vol] 0.86 10*3/uL 0.83-4.51 [facility] Lymphocytes/100 WBC Auto (Un sp spec)Ordered By: Nate Gray on 11-28-2024 Lymphocytes/100 WBC (Bld) 17.0 % Low 19-41 [facility] MCV (mean corpuscular volume ) determinationOrdered By: Nate Gray on 11-28-2024 MCV (RBC) [Entitic vol] 92.8 fL 80-94 [facility] Macrocytes Ql (Bld)Ordered B y: Nate Gray on 11-28-2024 Macrocytosis RARE [facility] Macrocytes detectionOrdered By: Nate Gray on 11-28-2024 Macrocytes Ql (Bld) RARE [facility] Manual differential comment Juvenal (Bld) [Interp]Ordered By: Nate Gray on 11-28-2024 Differential Comment SEE COMMENT [facility] Comment on above: THROMBOCYTOPENIA NOT ED Mean corpuscular hemoglobin (MCH) determinationOrdered By: Nate Gray on 11-28-2024 MCH (RBC) [Entitic mass] 29.9 pg 27.0-32.0 [facility] Mean corpuscular hemoglobin concentration (MCHC) determinationOrdered By: Nate Gray on 11-28-2024 MCHC (RBC) [Mass/Vol] 32.2 g/dL 32-36 [facility] Mean platelet volume determi nationOrdered By: Nate Gray on 11-28-2024 Platelet mean volume (Bld) [Entitic vol] 10.4 fL 6.2-12.0 [facility] Microscopic analysis of urin e for red blood cells (RBC)Ordered By: Nate Gray on 11-28-2024 Microscopic analysis of urine for red blood cells (RBC) 0-5 SEEN /hpf 0-5 [facility] Urine RBC 0-5 SEEN /hpf 0-5 [facility] Monocyte percentageOrdered B y: Nate Gray on 11-28-2024 Monocytes/100 WBC (Bld) 9.1 % 0-10 [facility] Mucus LM Ql (Urine sed)Order ed By: Nate Gray on 11-28-2024 Mucus Ql (Urine sed) 0 SEEN /hpf [facility] Neutrophil percentageOrdered By: Nate Gray on 11-28-2024 Neutrophils/100 WBC (Bld) 71.3 % High 47-70 [facility] Nitrite Test strip Ql (U)Ord ered By: Nate Gray on 11-28-2024 Nitrite Ql (U) Negative Negative [facility] Nucleated red blood cell per centageOrdered By: Nate Gray on 11-28-2024 Nucleated RBC/100 WBC (Bld) [Ratio] 0 % 0-5 [facility] Platelet countOrdered By: Emory Gray on 11-28-2024 Platelets (Bld) [#/Vol] 93 10*3/uL Low 150-450 [facility] Platelet estimateOrdered By: Nate Gray on 11-28-2024 Platelets LM Ql (Bld) MOD DEC ADEQ [facility] Platelets LM Ql (Bld)Ordered By: Nate Gray on 11-28-2024 Platelet Estimate MOD DEC [facility] Potassium (Unsp spec) [Mass/ Vol]Ordered By: Nate Gray on 11-28-2024 Potassium [Moles/Vol] 4.0 mmol/L 3.3-5.1 [facility] Potassium measurement (mass/ volume)Ordered By: Nate Gray on 11-28-2024 Potassium (Unsp spec) [Mass/Vol] 4.0 mmol/L 3.3-5.1 [facility] Protein Test strip Ql (U)Ord ered By: Nate Gray on 11-28-2024 Protein Ql (U) 15 mg/dl High Negative [facility] RBC Auto (Bld) [#/Vol]Ordere d By: Nate Gray on 11-28-2024 RBC (Bld) [#/Vol] 4.15 10*6/uL Low 4.6-6.2 [facility] RBC morphology finding Nom ( Bld)Ordered By: Nate Gray on 11-28-2024 Red Blood Cell Morphology N CHROM NORMAL NORM C&C [facility] STAPHYLOCOCCUS AUREUS AND MR SA SCREEN, PCR, NASALon 11-28-2024 S. aureus and MRSA panel ELIZABETH+probe (Nose) Not detected Normal Not Detected [facility] Comment on above: Order Comment: Speci men Type: SWABOrdering Facility: [facility] Address: [address] [place] [address] Performed By: #### S APCR ####[facility] LABCLIA [id number] [facility] [place] [address] [place] Serum creatinine measurement (mass/volume)Ordered By: Nate Gray on 11-28-2024 Creatinine [Mass/Vol] 1.43 mg/dL High 0.70-1.20 [facility] Serum globulin measurementOr dered By: Nate Gray on 11-28-2024 Globulin (S) [Mass/Vol] 3.2 g/dL 2.2-4.2 [facility] Serum glucose measurement (m ass/volume)Ordered By: Nate Gray on 11-28-2024 Glucose [Mass/Vol] 140 mg/dL High 70-99 [facility] Serum or plasma alanine delgado otransferase (ALT) measurementOrdered By: Nate Gray on 11-28-2024 ALT [Catalytic activity/Vol] 24 U/L <47 [facility] Serum or plasma albumin jossie urement (mass/volume)Ordered By: Nate Gray on 11-28-2024 Albumin [Mass/Vol] 4.0 g/dL 3.4-4.8 [facility] Serum or plasma albumin/glob ulin mass ratioOrdered By: Nate Gray on 11-28-2024 Albumin/Globulin [Mass ratio] 1.3 {ratio} 0.9-2.4 [facility] Serum or plasma alkaline silas sphatase measurementOrdered By: Nate Gray on 11-28-2024 ALP [Catalytic activity/Vol] 66 U/L 40-129 [facility] Serum or plasma calcium jossie urement (mass/volume)Ordered By: Nate Gray on 11-28-2024 Calcium [Mass/Vol] 9.4 mg/dL 7.6-11.0 [facility] Serum or plasma urea nitroge n measurement (mass/volume)Ordered By: Nate Gray on 11-28-2024 Urea nitrogen [Mass/Vol] 39 mg/dL High 4-19 [facility] Sodium levelOrdered By: Nate Gray on 11-28-2024 Sodium [Moles/Vol] 137 mmol/L 133-145 [facility] Squamous epithelial cells de tection in urine sediment by light microscopyOrdered By: Nate Gray on 11-28-2024 Epithelial cells.squamous LM Ql (Urine sed) 0-5 SEEN /hpf 0-5 [facility] T4 Free SerPl-mCncon 025 Free T4 [Mass/Vol] 1.2 ng/dL Normal 0.9-1.7 [facility] Comment on above: Order Comment: Speci men Type: BLOOD SPECIMENOrdering Facility: [facility] Address: [address] [place] [address] Performed By: #### 3 024-7, 34715-7, HSTNT, 3016-3 ####[facility] LABCLIA [id number] [place] [address] [place] TSH SerPl-aCncon 11-28-2024 TSH Qn 9.100 m[IU]/L High 0.270-4.200 [facility] Comment on above: Order Comment: Speci men Type: BLOOD SPECIMENOrdering Facility: [facility] Address: [address] [place] [address] Performed By: #### 3 024-7, 18982-8, HSTNT, 3016-3 ####[facility] LABCLIA [id number] [place] [address] [place] TYPE + SCREENon 11-28-2024 ABO O Normal [facility] Comment on above: Order Comment: Speci men Type: BLOOD SPECIMENOrdering Facility: [facility] Address: [address] [place] [address] Performed By: #### T SCR ####[facility] BLOOD BANKCLIA [id number] [place] [address] [place] Rh Nom (Bld) Negative Normal [facility] Comment on above: Order Comment: Speci men Type: BLOOD SPECIMENOrdering Facility: [facility] Address: [address] [place] [address] Performed By: #### T SCR ####CC [facility] BLOOD BANKIA [id number] [place] [id number] [place] TYPE AND SCREEN EXPIRATION 12/01/2024 23:59 Normal [facility] Comment on above: Order Comment: Speci men Type: BLOOD SPECIMENOrdering Facility: [facility] Address: [address] [place] [address] Performed By: #### T SCR ####CC [facility] BLOOD BANKCLIA [id number] [place] [id number] [facility] Total proteinOrdered By: Troy Gray on 11-28-2024 Protein [Mass/Vol] 7.2 g/dL 5.9-8.4 [facility] Type AND Screenon 11-28-2024 ABO and Rh group Nom (Bld) Blood group O Rh(D) negative Normal [facility] Comment on above: Order Comment: A Performed By: #### L 501.2450, L100.0100, BTS, L500.4050 #### [facility] [address] [place], [address] Urinalysis, Completeon 11-28 EPI,SQUAMOUS 0-5 SEEN Normal 0-5 [facility] Comment on above: Order Comment: CLEAN CATCH Performed By: #### L 400.0001 ####[facility] [address] [place], [address] RBC 0-5 SEEN Normal 0-5 [facility] Comment on above: Order Comment: CLEAN CATCH Performed By: #### L 400.0001 ####[facility] [address] [place], [address] WBC 0-5 SEEN Normal 0-5 [facility] Comment on above: Order Comment: CLEAN CATCH Performed By: #### L 400.0001 ####[facility] [address] [place], [address] BACTERIA 0 SEEN Normal None Seen [facility] Comment on above: Order Comment: CLEAN CATCH Performed By: #### L 400.0001 ####[facility] [address] [place], [address] Mucus Ql (Urine sed) 0 SEEN Normal [facility] Comment on above: Order Comment: CLEAN CATCH Performed By: #### L 400.0001 ####[facility] [address] [place], [address] Urine blood detectionOrdered By: Nate Gray on 11-28-2024 Urine Occult Blood Negative Negative [facility] Urine clarityOrdered By: Troy Gray on 11-28-2024 Clarity (U) Sl. Cloudy Clear [facility] Urine color determinationOrd ered By: Nate Gray on 11-28-2024 Color (U) Yellow Yellow [facility] Urine glucose detectionOrder ed By: Nate Gray on 11-28-2024 Glucose Ql (U) Normal mg/dl Normal [facility] Urine leukocyte esterase det ection by dipstickOrdered By: Nate Gray on 11-28-2024 Leukocyte esterase Test strip Ql (U) Negative Negative [facility] Urine pHOrdered By: Nate vasques on 11-28-2024 pH (U) 6.5 [pH] 5.0 - 8.0 [facility] Urine sediment bacteria coun t by microscopy (number/high power field)Ordered By: Nate Gray on 11-28-2024 Bacteria LM.HPF (Urine sed) [#/Area] 0 /[HPF] None Seen [facility] Urine specific gravity measu rementOrdered By: Nate Gray on 11-28-2024 Specific gravity (U) [Rel density] 1.010 1.002-1.030 [facility] Urine urobilinogen measureme ntOrdered By: Nate Gray on 11-28-2024 Urobilinogen Ql (U) Normal mg/dl Normal [facility] Urobilinogen Ql (U)Ordered B y: Nate Gray on 11-28-2024 Urine Urobilinogen Normal mg/dl Normal [facility] White blood cell (WBC) count Ordered By: Nate Gray on 11-28-2024 WBC (Bld) [#/Vol] 5.1 10*3/uL 4.4-11.0 [facility] White blood cell countOrdere d By: Nate Gray on 11-28-2024 Urine WBC 0-5 SEEN /hpf 0-5 [facility] White blood cell count 0-5 SEEN /hpf 0-5 [facility] XR CHEST 1V FRONTAL PORTon 0 11-28-2024 XR CHEST 1V FRONTAL PORT Normal [facility] Bacteria Ur Culton Bacteria identified Cx Nom (U) ORGANISM ID: 1 <10,000 CFU/ml Normal urogenital heather Normal [facility] Comment on above: Performed By: #### 6 30-4 ####[facility] LABCLIA [id number] [address] [place] Basic metabolic 2000 panelOr dered By: Lucille Glover on 11-27-2024 Anion gap [Moles/Vol] 10 mmol/L 8 - 15 mmol/L [facility] Calcium [Mass/Vol] 9.2 mg/dL 8.5 - 10. 2 mg/dL [facility] Chloride [Moles/Vol] 103 mmol/L 98 - 10 7 mmol/L [facility] CO2 [Moles/Vol] 26 mmol/L 22 - 30 mmol/L [facility] Creatinine [Mass/Vol] 1.26 mg/dL High 0.73 - 1.22 mg/dL [facility] GFR/1.73 sq M.predicted among non-blacks MDRD (S/P/Bld) [Vol rate/Area] 56 mL/min/{1.73_m2} Low - PINF [facility] Comment on above: Estimated Glomerular Filtration Rate [...] 104 mg/dL High 74 - 99 mg/dL [facility] Comment on above: The [place] Diabete s Association (ADA) provides guidance for [...] Standards of Medical Care in Diabetes 2016, [place] Diabetes Association. Diabetes Care. 2016.39(Suppl 1). Interpretation and review of laboratory results Abnormal [facility] Potassium [Moles/Vol] 4.1 mmol/L 3.7 - 5.1 mmol/L [facility] Sodium [Moles/Vol] 139 mmol/L 136 - 144 mmol/L [facility] Urea nitrogen [Mass/Vol] 35 mg/dL High 9 - 24 mg/dL [facility] Basic metabolic 2000 panelon 11-27-2024 Anion gap [Moles/Vol] 10 mmol/L Normal 8-15 [facility] Comment on above: Order Comment: Speci men Type: BLOOD SPECIMENOrdering Facility: [facility] Address: [address] [place] [address] Performed By: #### 2 4321-2 ####[facility]ITALLIA [id number] [place] [address] [place] Calcium [Mass/Vol] 9.2 mg/dL Normal 8.5-10.2 [facility] Comment on above: Order Comment: Speci men Type: BLOOD SPECIMENOrdering Facility: [facility] Address: [address] [place] [address] Performed By: #### 2 4321-2 ####[facility] MILLWNCLIA [id number] [place] [address] [place] Chloride [Moles/Vol] 103 mmol/L Normal 98-107 [facility] Comment on above: Order Comment: Nahuni men Type: BLOOD SPECIMENOrdering Facility: [facility] Address: [address] [place] [address] Performed By: #### 2 4321-2 ####[facility] INSTITUTEWNCLIA [id number] [place] [address] [place] CO2 [Moles/Vol] 26 mmol/L Normal 22-30 [facility] Comment on above: Order Comment: Speci men Type: BLOOD SPECIMENOrdering Facility: [facility] Address: [address] [place] [address] Performed By: #### 2 4321-2 ####[facility] [id number] [place] [address] [place] Creatinine [Mass/Vol] 1.26 mg/dL High 0.73-1.22 [facility] Comment on above: Order Comment: Speci men Type: BLOOD SPECIMENOrdering Facility: [facility] Address: [address] [place] [address] Performed By: #### 2 4321-2 ####[facility] [id number] [place] [address] [place] Creatinine and Glomerular filtration rate.predicted panel (S/P/Bld) 56 mL/min/1.73m??? Low >=60 [facility] Comment on above: Order Comment: Speci men Type: BLOOD SPECIMENOrdering Facility: [facility] Address: [address] [place] [address] Result Comment: Keara mated Glomerular Filtration Rate [...] actual GFR. Performed By: #### 2 4321-2 ####[facility] INSTITUTEWNCLIA [id number] [place] [address] [place] Glucose [Mass/Vol] 104 mg/dL High 74-99 [facility] Comment on above: Order Comment: Speci men Type: BLOOD SPECIMENOrdering Facility: [facility] Address: [address] [place] [address] Result Comment: The [place] Diabetes Association (ADA) provides guidance for cutoff [...] Standards of Medical Care in Diabetes 2016, [place] Diabetes Association. Diabetes Care. 2016.39(Suppl 1). Performed By: #### 2 4321-2 ####[facility] INSTITUTEWGRAND ITASCA CLINIC AND HOSPITALA [id number] [place] [address] [place] Potassium [Moles/Vol] 4.1 mmol/L Normal 3.7-5.1 [facility] Comment on above: Order Comment: Speci men Type: BLOOD SPECIMENOrdering Facility: [facility] Address: [address] [place] [address] Performed By: #### 2 4321-2 ####[facility] RESEARCH INSTITUTEWAZLIA [id number] [place] [address] [place] Sodium [Moles/Vol] 139 mmol/L Normal 136-144 [facility] Comment on above: Order Comment: Speci men Type: BLOOD SPECIMENOrdering Facility: [facility] Address: [address] [place] [address] Performed By: #### 2 4321-2 ####[facility]OSPITALLIA [id number] [place] [address] [place] Urea nitrogen [Mass/Vol] 35 mg/dL High 9-24 [facility] Comment on above: Order Comment: Speci men Type: BLOOD SPECIMENOrdering Facility: [facility] Address: [address] [place] [address] Performed By: #### 2 4321-2 ####[facility] HOSPITALJESÚS [id number] [address] [place] CBC panel Auto (Bld)on 11-27 Erythrocyte distribution width (RBC) [Ratio] 15 % 11.5 - 15.0 % [facility] Hematocrit (Bld) [Volume fraction] 37.7 % Low 39.0 - 51.0 % [facility] Hemoglobin (Bld) [Mass/Vol] 12.2 g/dL Low 13.0 - 17.0 g/dL [facility] Interpretation and review of laboratory results Abnormal [facility] MCH (RBC) [Entitic mass] 30.2 pg 26.0 - 34.0 pg [facility] MCHC (RBC) [Mass/Vol] 32.4 g/dL 30.5 - 36.0 g/dL [facility] MCV (RBC) [Entitic vol] 93.3 fL 80.0 - 100.0 fL [facility] Nucleated RBC (Bld) [#/Vol] NINF [facility] Platelet mean volume (Bld) [Entitic vol] 10.7 fL 9.0 - 12.7 fL [facility] Platelets (Bld) [#/Vol] 91 10*3/uL Low [facility] Comment on above: No clot detected. RBC (Bld) [#/Vol] 4.04 10*6/uL Low 4.20 - 6.0 0 m/uL [facility] WBC (Bld) [#/Vol] 5.57 10*3/uL [facility] Erythrocyte distribution width (RBC) [Ratio] 15.0 % Normal 11.5-15.0 [facility] Comment on above: Order Comment: Speci men Type: BLOOD SPECIMENOrdering Facility: [facility] Address: [address] [place] [address] Performed By: #### 5 8410-2 ####[facility] RES[facility] INSTITUTEWNCLIA [id number] [place] [address] [place] Hematocrit (Bld) [Volume fraction] 37.7 % Low 39.0-51.0 [facility] Comment on above: Order Comment: Speci men Type: BLOOD SPECIMENOrdering Facility: [facility] Address: [address] [place] [address] Performed By: #### 5 8410-2 ####[facility] HOSPITALNCYG [id number] [place] [address] [place] Hemoglobin (Bld) [Mass/Vol] 12.2 g/dL Low 13.0-17.0 [facility] Comment on above: Order Comment: Speci men Type: BLOOD SPECIMENOrdering Facility: [facility] Address: [address] [place] [address] Performed By: #### 5 8410-2 ####[facility] HOSPITALNCYG [id number] [place] [address] [place] MCH (RBC) [Entitic mass] 30.2 pg Normal 26.0-34.0 [facility] Comment on above: Order Comment: Speci men Type: BLOOD SPECIMENOrdering Facility: [facility] Address: [address] [place] [address] Performed By: #### 5 8410-2 ####[facility] HOSPITALNCLIA [id number] [place] [address] [place] MCHC (RBC) [Mass/Vol] 32.4 g/dL Normal 30.5-36.0 [facility] Comment on above: Order Comment: Speci men Type: BLOOD SPECIMENOrdering Facility: [facility] Address: [address] [place] [address] Performed By: #### 5 8410-2 ####[facility] HOSPITALNCLIA [id number] [place] [address] [place] MCV (RBC) [Entitic vol] 93.3 fL Normal 80.0-100.0 [facility] Comment on above: Order Comment: Speci men Type: BLOOD SPECIMENOrdering Facility: [facility] Address: [address] [place] [address] Performed By: #### 5 8410-2 ####[facility] LAUREEN AWAISNCLIA [id number] [place] [address] [place] Nucleated RBC (Bld) [#/Vol] 10*3/uL Normal <0.01 [facility] Comment on above: Order Comment: Speci men Type: BLOOD SPECIMENOrdering Facility: [facility] Address: [address] [place] [address] Performed By: #### 5 8410-2 ####[facility] HOSPITALNCLIA [id number] [place] [address] [place] Platelet mean volume (Bld) [Entitic vol] 10.7 fL Normal 9.0-12.7 [facility] Comment on above: Order Comment: Speci men Type: BLOOD SPECIMENOrdering Facility: [facility] Address: [address] [place] [address] Performed By: #### 5 8410-2 ####[facility] HOSPITALNCLIA [id number] [place] [address] [place] Platelets (Bld) [#/Vol] 91 10*3/uL Low 150-400 [facility] Comment on above: Order Comment: Speci men Type: BLOOD SPECIMENOrdering Facility: [facility] Address: [address] [place] [address] Result Comment: No c lot detected. Performed By: #### 5 8410-2 ####[facility] HOSPITALCHARLYLIA [id number] [place] [address] [place] RBC (Bld) [#/Vol] 4.04 10*6/uL Low 4.20-6.00 [facility] Comment on above: Order Comment: Speci men Type: BLOOD SPECIMENOrdering Facility: [facility] Address: [address] [place] [address] Performed By: #### 5 8410-2 ####[facility] HOSPITALNCCALNila [id number] [place] [address] [place] WBC (Bld) [#/Vol] 5.57 10*3/uL Normal 3.70-11.00 [facility] Comment on above: Order Comment: Speci men Type: BLOOD SPECIMENOrdering Facility: [facility] Address: [address] [place] [address] Performed By: #### 5 8410-2 ####[facility] HOS[facility]ITALNCLIA [id number] [place] [address] [place] CNOVon 11-27-2024 CNOV Normal [facility] Lipase SerPl-cCncon 11-28-19 25 Lipase [Catalytic activity/Vol] 28 U/L Normal 16-61 [facility] Comment on above: Order Comment: Speci men Type: BLOOD SPECIMENOrdering Facility: [facility] Address: [address] [place] [address] Performed By: #### 3 040-3, 93320-5, 14940-9 ####[facility] LABIA [id number] [place] [address] [place] Lipid 1996 panelon 5 Cholesterol [Mass/Vol] 169 mg/dL Normal <200 [facility] Comment on above: Order Comment: Speci men Type: BLOOD SPECIMENOrdering Facility: [facility] Address: [address] [place] [address] Result Comment: <200 mg/dL, Desirable 200-239 mg/dL, Borderline high>239 mg/dL, High Performed By: #### 3 040-3, 27808-2, 93555-9 ####[facility] LABCLIA [id number] [place] [address] [place] Cholesterol in HDL [Mass/Vol] 50 mg/dL Normal >39 [facility] Comment on above: Order Comment: Speci maikol Type: BLOOD SPECIMENOrdering Facility: [facility] Address: [address] [place] [address] Result Comment: 40-5 9 mg/dL, Acceptable>59 mg/dL, High: Negative risk factor for coronary heart disease<40 mg/dL, Low: Positive risk factor for coronary heart disease Performed By: #### 3 040-3, 70162-0, 21113-5 ####[facility] LABCLIA [id number] [address] [place] Cholesterol in LDL [Mass/Vol] 100 mg/dL High <100 [facility] Comment on above: Order Comment: Nahunbrice lassiter Type: BLOOD SPECIMENOrdering Facility: [facility] Address: [address] [place] [address] Result Comment: <100 mg/dL, Optimal 100-129 mg/dL, Near optimal/above optimal 130-159 mg/dL, Borderline high 160-189 mg/dL, High>189 mg/dL, Very highSecondary prevention optimal LDL Cholesterol levels are recommended to be < 70 mg/dL Performed By: #### 3 040-3, 25139-5, 46772-2 ####[facility] LABCLIA [id number] [address] [place] Cholesterol in LDL/Cholesterol in HDL [Mass ratio] 2.00 {ratio} Normal <2.54 [facility] Comment on above: Order Comment: Ian lassiter Type: BLOOD SPECIMENOrdering Facility: [facility] Address: [address] [place] [address] Result Comment: Refe rence:1. National Cholesterol Education Program ATP III Guideline At-A-Glance Quick Desk Reference: National Heart, Lung, and Blood [place]. National Institutes of Health. 2001: NIH Publication No. 01-3305.2. An International Atherosclerosis Society position paper: global recommendations for the management of dyslipidemia: executive summary, Atherosclerosis. 2014: 232(2):410-413. Performed By: #### 3 040-3, 37752-7, ####[facility] LABCLIA [id number] [address] [place] [address] [place] Cholesterol in VLDL [Mass/Vol] 19 mg/dL Normal <30 [facility] Comment on above: Order Comment: Speci men Type: BLOOD SPECIMENOrdering Facility: [facility] Address: [address] [place] [address] Performed By: #### 3 040-3, 73933-9, ####[facility] LABCLIA [id number] [address] [place] [address] [place] Cholesterol non HDL [Mass/Vol] 119 mg/dL Normal <130 [facility] Comment on above: Order Comment: Speci men Type: BLOOD SPECIMENOrdering Facility: [facility] Address: [address] [place] [address] Result Comment: <130 mg/dL, Optimal 130-159 mg/dL, Near optimal/above optimal 160-189 mg/dL, Borderline high 190-219 mg/dL, High>219 mg/dL, Very highSecondary prevention optimal non HDL Cholesterol levels are recommended to be <100 mg/dL Performed By: #### 3 040-3, 20548-5, ####[facility] LABCLIA [id number] [address] [address] [place] Cholesterol.total/Cho lesterol in HDL [Mass ratio] 3.38 {ratio} Normal <5.10 [facility] Comment on above: Order Comment: Speci men Type: BLOOD SPECIMENOrdering Facility: [facility] Address: [address] [place], [place] [address] Performed By: #### 3 040-3, 92334-4, ####[facility] LABIA [id number] [address] [address] [place] FASTING TIME Normal [facility] Comment on above: Order Comment: Speci men Type: BLOOD SPECIMENOrdering Facility: [facility] Address: [address] [place] [address] Result Comment: Unkn own Performed By: #### 3 040-3, 64148-3, 13267-2 ####[facility] LABCLIA [id number] [place] [address] [place] Triglyceride [Mass/Vol] 97 mg/dL Normal <150 [facility] Comment on above: Order Comment: Speci men Type: BLOOD SPECIMENOrdering Facility: [facility] Address: [address] [place] [address] Result Comment: <150 mg/dL, Normal 150-199 mg/dL, Borderline high 200-499 mg/dL, High>499 mg/dL, Very high Performed By: #### 3 040-3, 22201-3, 67965-2 ####[facility] LABCLIA [id number] [address] [place] NT-proBNP SerPl-mCncon 11-27 Natriuretic peptide.B prohormone N-Terminal [Mass/Vol] 1180 pg/mL High <450 [facility] Comment on above: Order Comment: Speci men Type: BLOOD SPECIMENOrdering Facility: [facility] Address: [address] [place] [address] Performed By: #### 3 040-3, 79910-9, 27014-7 ####[facility] LABCLIA [id number] [place] [address] [place] TSH SerPl-aCncon 11-27-2024 TSH Qn 8.680 m[IU]/L High 0.270-4.200 [facility] Comment on above: Order Comment: Speci men Type: BLOOD SPECIMENOrdering Facility: [facility] Address: [address] [place] [address] Performed By: #### 3 016-3 ####[facility] LABCLIA [id number] [address], [facility] [place] UA DIP, URINE (POC)on 2024 BILIRUBIN UA (POCT) Negative Negative [facility] CLARITY UA (POCT) Clear [facility] COLOR UA (POCT) Yellow [facility] GLUCOSE UA (POCT) Negative Negative mg/dL [facility] Hemoglobin Ql (U) Negative Negative [facility] Interpretation and review of laboratory results Abnormal [facility] KETONE UA (POCT) Negative Negative mg/dL [facility] LEUKOCYTES UA (POCT) Negative Negative [facility] NITRITE UA (POCT) Negative Negative [facility] PH UA (POCT) 6 4.5 - 8.0 [facility] Protein Ql (U) Trace Abnormal Negative mg/dL [facility] SPECIFIC GRAVITY UA (POCT) 1.02 1.005 - 1.030 [facility] UROBILINOGEN UA (POCT) 0.2 Normal E.U./dL [facility] Location:[address], [place], [place], [address] [place] [address] POINT OF CARE [facility] CNTHERAPYon 11-24-2024 CNTHERAPY Normal [facility] [id number] 11-21-2024 [id number] Normal [facility] CNTHERAPYon 11-21-2024 CNTHERAPY Normal [facility] THERAPY NTon 11-21-2024 THERAPY NT Normal [facility] CNOVon 11-09-2024 CNOV Normal [facility] CNOVon 11-07-2024 CNOV Normal [facility] Surgery Visit Reporton 09-15 Surgery Visit Report [facility] [address] [place] [address] [address] [place], [place] [id number] OFFICE VISIT Date of Service: 09/15/24 MR#: [id number] Acct: [id number] Name: LEANA CAMEJO Rep #: [id number] : 1940 Provider: Dr. Lara lemons MD Age/Sex: 84/M Location: [facility] Status: Signed Intake Vital Signs 08/31/24 06:39 Height 5 ft 8 in Intake Visit Reasons: SPIGELIAN HERNIA DOS 08/31 Chief Complaint: spigelian hernia Is patient in pain?: No Allergies lisinopril Allergy (Intermediate, Verified 09/15/24 13:16) Rash atorvastatin calcium (From Lipitor) Allergy (Verified 09/15/24 13:16) Other clonidine Allergy (Verified 09/15/24 13:16) Unknown rosuvastatin calcium (From Crestor) Allergy (Verified 09/15/24 13:16) Other Tejmrhu-EWQ-HgB Reductase Inhibitor (Efeowif-Hkl-Hhg Reductase Inhibitor) Allergy (Verified 09/15/24 13:16) Other Have you fallen in the past year?: No Subjective Details: 84-year-old male presents status post left spigelian hernia repair with mesh. Patient is doing well denies any pain at that area or issues with the incision. Patient is interested in possibly following with vascular surgery in [place] not having to go all the way to [facility]. Objective Details: Abdomen: Soft, nondistended, nontender, incision healing well clean dry and intact no signs of infection. Coding Level of Care Code Global Post Op Diagnoses S/P spigelian hernia repair, follow-up exam Z09 [facility] Medical History (Updated 09/15/24 @ 13:16 by [...] Also refer patient to vascular surgery and [place] Dr. 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 Perez previously. Lara Fonseca M.D. Pager: [phone] [facility] [address] [place], [place] [address] Office: [phone] 09/17/24 1417 Date Lara Fonseca MD Cosigner Signature: Date (if applicable) CC: Dr. Dallas Reed MD [facility] CNPNon 09-08-2024 CNPN Normal [facility] CNOVon 09-07-2024 CNOV Normal [facility] T3 SerPl-mCncon 09-07-2024 T3 [Mass/Vol] 69 ng/dL Low 79-165 [facility] Comment on above: Order Comment: Speci men Type: BLOOD SPECIMENOrdering Facility: [facility] Address: [address] [place] [address] Performed By: #### 3 024-7, 3053-6 ####[facility] LABCLIA [id number] [facility] [place] [address] [place] T4 Free SerPl-mCncon 12-19-2 024 Free T4 [Mass/Vol] 1.3 ng/dL Normal 0.9-1.7 [facility] Comment on above: Order Comment: Speci men Type: BLOOD SPECIMENOrdering Facility: [facility] Address: [address] [facility] [place] [address] Performed By: #### 3 024-7, 3053-6 ####[facility] LABCLIA [id number] [place] [address] [place] Discharge Instructionon 08-20 Discharge Instruction [facility] Medical Records Department [address] [place] [address] Instructions for Home/Discharge Instructions 08/31/24 0825 MR#: [id number] Acct: [id number] Name: LEANA CAMEJO Rep #: [id number] : 1940 84 From: Lara Fonseca MD PCP: Dr. Dallas Reed MD Status:REG [facility] Discharge Instructions Diet Discharge Diet: Light diet [...] 5 PM and on the weekends call [phone] with any concerns. Test Results: Test results from this visit will be discussed in further detail at your follow-up appointment, if applicable. Discharge Plan Admission Attending Provider: Lara Fonseca Primary Care Provider: Dallas Reed Instructions Print Language: Hong Konger Discharge Orders/Prescriptions Prescriptions: New tramadol 50 mg [...] Order can be placed): Home, Self Care 08/31/24 0827 Lara Fonseca MD CC: Dr. Dallas Reed MD Signed [facility] MR/POSTOP.[facility] 08-31-2024 MR/POSTOP.[facility] Medical Records Department [address] [place] [address] Anesthesia Postop Eval I 08/31/24 0844 MR#: [id number] Acct: [id number] Name: LEANA CAMEJO Rep #: [id number] : 1940 84 From: Melina Paz PCP: Dr. Dallas Reed MD Status:REG SDC Y Race: C Location: [place] [address] Anesthesia: Postop Eval I Current Vital Signs [...] Date Melina Arrington Signature: Date CC: Signed Normal [facility] MR/KLHHRVHT3xc 08-31-2024 MR/POSTOPAN2 [facility] Medical Records Department [address] [facility] [place] [address] Anesthesia Postop Eval II 08/31/24912 MR#: [id number] Acct: [id number] Name: LEANA CAMEJO Rep #: [id number] : 1940 84 From: Man [place] MD PCP: Dr. Dallas Reed MD Status:REG [facility] Y Race: C Location: [place] [address]- Anesthesia Postop Eval I Sum Postop Eval Completion status Anesthesia document: Postop Eval 1 completed: Yes Anesthesia Postop Eval I Summary Anesthesia Postop Eval I Summary: Anesthesia Postop Eval I: Assessment Summary Airway patent Yes 08/31/24 08:44 SURVEYOR HELPER ROD.CSIR Spontaneous unlabored Yes 08/31/24 08:44 SURVEYOR HELPER ROD.CSIR respirations Mental status nausea No 08/31/24 08:44 SURVEYOR HELPER ROD.CSIR Vomiting No 08/31/24 08:44 SURVEYOR HELPER ROD.CSIR Anesthesia Postop Eval I: Fluid Summary Crystalloid volume administer 1,000 08/31/24 08:44 SURVEYOR HELPER ROD.CSIR (ml) Colloids volume administered ( ml) Blood Product volume administered (ml) Total IV fluid infused 1,000 08/31/24 08:44 SURVEYOR HELPER ROD.CSIR Anesthesia Postop Eval I: Summary Notes Anesthesia Complication No 08/31/24 08:44 SURVEYOR HELPER ROD.CSIR Anesthesia Complication Comment: Post-operative progress note Anesthesia: Postop Eval II Evaluation Mental status: Awake Pain Level: 0 nausea: No Vomiting: No 08/31/24912 Date Man Arrington Signature: Date CC: Signed Normal [facility] Operative Reporton 4 Operative Report [facility] Medical Records Department [address] [place] [address] Operative Report 08/31/24 0825 MR#: [id number] Acct: [id number] Name: LEANA CAMEJO Rep #: [id number] : 1940 84 From: Lara Fonseca MD PCP: Dr. Dallas Reed MD Status:[facility] Location[place] [facility] Operative Report (Standard) Operative Information Date of Procedure: 08/31/24 Pre-Operative Diagnosis: Left spigelian hernia Post-Operative Diagnosis: Same Surgery/Procedure Performed: Open left spigelian hernia pair with mesh scraper tender: Yes Steel Sash Erector: Magalys Oneal Tasks completed by kindergarten assistant: Closing and Retracting Type of Anesthesia: [...] Ventralex ST hernia patch 6.4 cm ref [id number] Lot [id number] Special Medications: Ancef 2 g IV x [...] The hernia defect was closed with 2 xqlnrj-xz-yvmuf 0 Nurolon. The wound was irrigated with [...] Fonseca MD; Dr. Dallas Reed MD Signed [facility] Normal [facility] 08-[facility]-2024 [facility] Normal [facility] CBC panel Auto (Bld)on 08-04 Erythrocyte distribution width (RBC) [Ratio] 14.7 % Normal 11.5-15.0 [facility] Comment on above: Order Comment: Speci men Type: BLOOD SPECIMENOrdering Facility: [facility] Address: [address] [place] [address] Performed By: #### 5 8410-2 ####[facility] LABCLIA [id number] [place] [address] [place] Hematocrit (Bld) [Volume fraction] 37.4 % Low 39.0-51.0 [facility] Comment on above: Order Comment: Speci men Type: BLOOD SPECIMENOrdering Facility: [facility] Address: [address] [place] [address] Performed By: #### 5 8410-2 ####[facility] LABCLIA [id number] [place] [address] [place] Hemoglobin (Bld) [Mass/Vol] 11.9 g/dL Low 13.0-17.0 [facility] Comment on above: Order Comment: Speci men Type: BLOOD SPECIMENOrdering Facility: [facility] Address: [address] [place] [address] Performed By: #### 5 8410-2 ####[facility] LABIA [id number] [place] [address] [place] MCH (RBC) [Entitic mass] 30.1 pg Normal 26.0-34.0 [facility] Comment on above: Order Comment: Speci men Type: BLOOD SPECIMENOrdering Facility: [facility] Address: [address] [place] [address] Performed By: #### 5 8410-2 ####[facility] LABIA [id number] [place] [address] [place] MCHC (RBC) [Mass/Vol] 31.8 g/dL Normal 30.5-36.0 [facility] Comment on above: Order Comment: Speci men Type: BLOOD SPECIMENOrdering Facility: [facility] Address: [address] [place] [address] Performed By: #### 5 8410-2 ####[facility] LABIA [id number] [place] [address] [place] MCV (RBC) [Entitic vol] 94.4 fL Normal 80.0-100.0 [facility] Comment on above: Order Comment: Speci men Type: BLOOD SPECIMENOrdering Facility: [facility] Address: [address] [place] [address] Performed By: #### 5 8410-2 ####[facility] LABIA [id number] [place] [address] [place] Nucleated RBC (Bld) [#/Vol] 10*3/uL Normal <0.01 [facility] Comment on above: Order Comment: Speci men Type: BLOOD SPECIMENOrdering Facility: [facility] Address: [address] [place] [address] Performed By: #### 5 8410-2 ####[facility] LABIA [id number] [place] [address] [place] Platelet mean volume (Bld) [Entitic vol] 12.3 fL Normal 9.0-12.7 [facility] Comment on above: Order Comment: Speci men Type: BLOOD SPECIMENOrdering Facility: [facility] Address: [address] [place] [address] Performed By: #### 5 8410-2 ####[facility] LABIA [id number] [place] [address] [place] Platelets (Bld) [#/Vol] 88 10*3/uL Low 150-400 [facility] Comment on above: Order Comment: Speci men Type: BLOOD SPECIMENOrdering Facility: [facility] Address: [address] [place] [address] Result Comment: No c lot detected. Performed By: #### 5 8410-2 ####[facility] LABIA [id number] [place] [address] [place] RBC (Bld) [#/Vol] 3.96 10*6/uL Low 4.20-6.00 [facility] Comment on above: Order Comment: Speci men Type: BLOOD SPECIMENOrdering Facility: [facility] Address: [address] [place] [address] Performed By: #### 5 8410-2 ####[facility] LABCLIA [id number] [address] [address] [place] WBC (Bld) [#/Vol] 5.07 10*3/uL Normal 3.70-11.00 [facility] Comment on above: Order Comment: Speci men Type: BLOOD SPECIMENOrdering Facility: [facility] Address: [address] [place] [address] Performed By: #### 5 8410-2 ####[facility] LABCLIA [id number] [place] [address] [place] Comprehensive metabolic 2000 panelon 08-04-2024 Albumin [Mass/Vol] 3.7 g/dL Low 3.9-4.9 [facility] Comment on above: Order Comment: Speci men Type: BLOOD SPECIMENOrdering Facility: [facility] Address: [address] [place] [address] Performed By: #### 2 4323-8, 57636-0, 3016-3 ####[facility] LABCLIA [id number] [place] [address] [place] ALP [Catalytic activity/Vol] 44 U/L Normal 38-113 [facility] Comment on above: Order Comment: Speci men Type: BLOOD SPECIMENOrdering Facility: [facility] Address: [address] [place] [address] Performed By: #### 2 4323-8, 76823-0, 3016-3 ####[facility] LABCLIA [id number] [address] [address] [place] ALT [Catalytic activity/Vol] 22 U/L Normal 10-54 [facility] Comment on above: Order Comment: Speci men Type: BLOOD SPECIMENOrdering Facility: [facility] Address: [address] [place] [address] Performed By: #### 2 4323-8, 06899-9, 3016-3 ####[facility] LABCLIA [id number] [place] [address] [place] Anion gap [Moles/Vol] 9 mmol/L Normal 8-15 [facility] Comment on above: Order Comment: Speci men Type: BLOOD SPECIMENOrdering Facility: [facility] Address: [address] [place] [address] Performed By: #### 2 4323-8, 78044-2, 3016-3 ####[facility] LABCLIA [id number] [place] [address] [place] AST [Catalytic activity/Vol] 25 U/L Normal 14-40 [facility] Comment on above: Order Comment: Speci men Type: BLOOD SPECIMENOrdering Facility: [facility] Address: [address] [place] [address] Performed By: #### 2 4323-8, 38546-0, 3016-3 ####[facility] LABCLIA [id number] [place] [address] [place] Bilirubin [Mass/Vol] 0.6 mg/dL Normal 0.2-1.3 [facility] Comment on above: Order Comment: Speci men Type: BLOOD SPECIMENOrdering Facility: [facility] Address: [address] [place] [address] Performed By: #### 2 4323-8, 33467-7, 3016-3 ####[facility] LABCLIA [id number] [place] [address] [place] Calcium [Mass/Vol] 9.4 mg/dL Normal 8.5-10.2 [facility] Comment on above: Order Comment: Speci men Type: BLOOD SPECIMENOrdering Facility: [facility] Address: [address] [place] [address] Performed By: #### 2 4323-8, 60543-1, 3016-3 ####[facility] LABCLIA [id number] [place] [address] [place] Chloride [Moles/Vol] 102 mmol/L Normal 98-107 [facility] Comment on above: Order Comment: Speci men Type: BLOOD SPECIMENOrdering Facility: [facility] Address: [address] [place] [address] Performed By: #### 2 4323-8, 83286-0, 3016-3 ####[facility] LABCLIA [id number] [place] [address] [place] CO2 [Moles/Vol] 28 mmol/L Normal 22-30 [facility] Comment on above: Order Comment: Speci men Type: BLOOD SPECIMENOrdering Facility: [facility] Address: [address] [place] [address] Performed By: #### 2 4323-8, 60419-5, 3016-3 ####[facility] LABCLIA [id number] [place] [address] [place] Creatinine [Mass/Vol] 1.55 mg/dL High 0.73-1.22 [facility] Comment on above: Order Comment: Speci men Type: BLOOD SPECIMENOrdering Facility: [facility] Address: [address] [place] [address] Performed By: #### 2 4323-8, 40015-3, 3016-3 ####[facility] LABIA [id number] [place] [address] [place] Creatinine and Glomerular filtration rate.predicted panel (S/P/Bld) 44 mL/min/1.73m??? Low >=60 [facility] Comment on above: Order Comment: Speci men Type: BLOOD SPECIMENOrdering Facility: [facility] Address: [address] [place] [address] Result Comment: Keara mated Glomerular Filtration Rate [...] actual GFR. Performed By: #### 2 4323-8, 69810-3, 3 ####[facility] LABCLIA [id number] [address] [address] [place] Glucose [Mass/Vol] 101 mg/dL High 74-99 [facility] Comment on above: Order Comment: Ian lassiter Type: BLOOD SPECIMENOrdering Facility: [facility] Address: [address] [place] [address] Result Comment: The [place] Diabetes Association (ADA) provides guidance for cutoff [...] Standards of Medical Care in Diabetes 2016, [place] [employer]. Diabetes Care. 2016.39(Suppl 1). Performed By: #### 2 4323-8, 31264-6, 3015-11 ####[facility] LABCLIA [id number] [address] [address] [place] Potassium [Moles/Vol] 4.5 mmol/L Normal 3.7-5.1 [facility] Comment on above: Order Comment: Ian lassiter Type: BLOOD SPECIMENOrdering Facility: [facility] Address: [address] [place] [address] Performed By: #### 2 4323-8, 39123-9, 3015-11 ####[facility] LABCLIA [id number] [address] [address] [place] Protein [Mass/Vol] 6.8 g/dL Normal 6.3-8.0 [facility] Comment on above: Order Comment: Speci men Type: BLOOD SPECIMENOrdering Facility: [facility] Address: [address] [place] [address] Performed By: #### 2 4323-8, 31288-7, 3015-3 ####[facility] LABCLIA [id number] [place] [address] [place] Sodium [Moles/Vol] 139 mmol/L Normal 136-144 [facility] Comment on above: Order Comment: Speci men Type: BLOOD SPECIMENOrdering Facility: [facility] Address: [address] [place] [address] Performed By: #### 2 4323-8, 90458-6, 3015-3 ####[facility] LABCLIA [id number] [place] [address] [place] Urea nitrogen [Mass/Vol] 47 mg/dL High 9-24 [facility] Comment on above: Order Comment: Speci men Type: BLOOD SPECIMENOrdering Facility: [facility] Address: [address] [place] [address] Performed By: #### 2 4323-8, 42571-4, 3 ####[facility] LABCLIA [id number] [address] [address] [place] Lipid 1996 panelon 4 Cholesterol [Mass/Vol] 119 mg/dL Normal <200 [facility] Comment on above: Order Comment: Speci men Type: BLOOD SPECIMENOrdering Facility: [facility] Address: [address] [place] [address] Result Comment: <200 mg/dL, Desirable 200-239 mg/dL, Borderline high>239 mg/dL, High Performed By: #### 2 4323-8, 76913-8, 3015-3 ####[facility] LABCLIA [id number] [place] [address] [place] Cholesterol in HDL [Mass/Vol] 40 mg/dL Normal >39 [facility] Comment on above: Order Comment: Nahuni maikol Type: BLOOD SPECIMENOrdering Facility: [facility] Address: [address] [place] [address] Result Comment: 40-5 9 mg/dL, Acceptable>59 mg/dL, High: Negative risk factor for coronary heart disease<40 mg/dL, Low: Positive risk factor for coronary heart disease Performed By: #### 2 4323-8, 51695-3, 6-3 ####[facility] LABCLIA [id number] [address] [place] Cholesterol in LDL [Mass/Vol] 62 mg/dL Normal <100 [facility] Comment on above: Order Comment: Nahunbrice lassiter Type: BLOOD SPECIMENOrdering Facility: [facility] Address: [address] [place] [address] Result Comment: <100 mg/dL, Optimal 100-129 mg/dL, Near optimal/above optimal 130-159 mg/dL, Borderline high 160-189 mg/dL, High>189 mg/dL, Very highSecondary prevention optimal LDL Cholesterol levels are recommended to be < 70 mg/dL Performed By: #### 2 4323-8, 69577-4, 3015-3 ####[facility] LABCLIA [id number] [address] [place] Cholesterol in LDL/Cholesterol in HDL [Mass ratio] 1.55 {ratio} Normal <2.54 [facility] Comment on above: Order Comment: Ian lassiter Type: BLOOD SPECIMENOrdering Facility: [facility] Address: [address] [place] [address] Result Comment: Refe rence:1. National Cholesterol Education Program ATP III Guideline At-A-Glance Quick Desk Reference: National Heart, Lung, and Blood [place]. National Institutes of Health. 2001: NIH Publication No. 01-3305.2. An International Atherosclerosis Society position paper: global recommendations for the management of dyslipidemia: executive summary, Atherosclerosis. 2014: 232(2):410-413. Performed By: #### 2 4323-8, 16617-0, 3015-11 ####[facility] LABCLIA [id number] [address] [address] [place] Cholesterol in VLDL [Mass/Vol] 17 mg/dL Normal <30 [facility] Comment on above: Order Comment: Speci men Type: BLOOD SPECIMENOrdering Facility: [facility] Address: [address] [place] [address] Performed By: #### 2 4323-8, 76035-8, 3015-11 ####[facility] LABCLIA [id number] [address] [address] [place] Cholesterol non HDL [Mass/Vol] 79 mg/dL Normal <130 [facility] Comment on above: Order Comment: Speci men Type: BLOOD SPECIMENOrdering Facility: [facility] Address: [address] [place] [address] Result Comment: <130 mg/dL, Optimal 130-159 mg/dL, Near optimal/above optimal 160-189 mg/dL, Borderline high 190-219 mg/dL, High>219 mg/dL, Very highSecondary prevention optimal non HDL Cholesterol levels are recommended to be <100 mg/dL Performed By: #### 2 4323-8, 25111-2, 3015-11 ####[facility] LABCLIA [id number] [address] [address] [place] Cholesterol.total/Cho lesterol in HDL [Mass ratio] 2.98 {ratio} Normal <5.10 [facility] Comment on above: Order Comment: Speci men Type: BLOOD SPECIMENOrdering Facility: [facility] Address: [address] [place] [address] Performed By: #### 2 4323-8, , 3015-11 ####[facility] LABCLIA [id number] [address] [address] [place] FASTING TIME 12 hrs Normal [facility] Comment on above: Order Comment: Speci men Type: BLOOD SPECIMENOrdering Facility: [facility] Address: [address] [place] [address] Performed By: #### 2 4323-8, 81029-2, 3015-3 ####[facility] LABCLIA [id number] [place] [id number] [place] Triglyceride [Mass/Vol] 83 mg/dL Normal <150 [facility] Comment on above: Order Comment: Speci men Type: BLOOD SPECIMENOrdering Facility: [facility] Address: [address] [place] [address] Result Comment: <150 mg/dL, Normal 150-199 mg/dL, Borderline high 200-499 mg/dL, High>499 mg/dL, Very high Performed By: #### 2 4323-8, 73792-7, 3015-3 ####[facility] LABCLIA [id number] [place] [address] [place] TSH SerPl-aCncon 08-04-2024 TSH Qn 7.280 m[IU]/L High 0.270-4.200 [facility] Comment on above: Order Comment: Speci men Type: BLOOD SPECIMENOrdering Facility: [facility] Address: [address] [place] [address] Performed By: #### 2 4323-8, 51588-1, 3 ####[facility] LABCLIA [id number] [place] [address] [place] CNPNon 08-01-2024 CNPN Normal [facility] Surgery Visit Reporton 07-26 Surgery Visit Report [facility] [address] [place], [place] [address] OFFICE VISIT Date of Service: 07/26/24 MR#: [id number] Acct: [id number] Name: LEANA CAMEJO Rep #: [id number] : 1940 Provider: Dr. Lara lemons MD Age/Sex: 84/M Location: [facility] Status: Signed Intake Vital Signs 07/11/24 16:09 07/26/24 09:19 Height 5 ft 8 in 5 ft 8 in Weight: 156 lb BMI 23.7 BP 111/66 Blood Pressure Location Rt brachial Position Sitting Respiration 18 Intake Visit Reasons: SPIGELIAN HERNIA Chief Complaint: spigelian hernia Fashion Coordinator Required: No Is patient in pain?: No Allergies lisinopril Allergy (Intermediate, Verified 07/26/24 09:20) Rash atorvastatin calcium (From Lipitor) Allergy (Verified 07/26/24 09:20) Other clonidine Allergy (Verified 07/26/24 09:20) Unknown rosuvastatin calcium (From Crestor) Allergy (Verified 07/26/24 09:20) Other Rptajxv-ICV-XxS Reductase Inhibitor (Jxmgsor-Ier-Plh Reductase Inhibitor) Allergy (Verified 07/26/24 09:20) Other [...] moles Musc Musculoskele (more content not included)... Normal [facility] CNPTOUTREACHon 07-24-2024 CNPTOUTREACH Normal [facility] CNPTOUTREACHon 07-22-2024 CNPTOUTREA Normal [facility] CNOVon 07-17-2024 CNOV Normal [facility] 12 Lead EKGon 07-11-2024 12 Lead EKG [facility] [address] [place] [address] 12 Lead EKG 07/11/24 1757 MR#: [id number] Acct: [id number] Name: LEANA CAMEJO Rep #: [id number] : 1940 84 From: Donato Longoria MD [...] , Romhilt-Noguera ) Abnormal ECG Confirmed by VON LAWTON, DONATO ([id number]), loan expeditor BENITA NUNN ([id number]) on 07/13/2024 9:08:10 AM Referred By: Confirmed By:DONATO LONGORIA MD 07/13/24 0908 Date Donato Longoria MD CC: Dr. Veena Nelson DO; Dr. Dallas Reed MD Signed Normal [facility] Abdomen/Pelvis W IV Cont ONL Yon 07-11-2024 Abdomen/Pelvis W IV Cont ONLY [facility] Imaging Services [address] [place] [address] Abdomen/Pelvis W IV Cont ONLY MR#: [id number] Acct: [id number] Name: LEANA CAMEJO Rep #: [id number] : 1940 M 84 From: Marisabel Quiñonez MD PCP: Dr. Dallas Reed MD Status: REG ER Study: Abdomen/Pelvis W IV Cont ONLY Date of Exam: Exam# [id number] Ordering Dr: Veena Nelson DO ADDENDUM by Dr. Marisabel Quiñonez MD on 07/11/24 at 2017 [id number] EXAM: CT ABDOMEN AND PELVIS WITH INTRAVENOUS [...] contains gas, no obvious strangulation. 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 Similar prior exam. Kidneys enhance symmetrically. LYMPH NODES: Unremarkable. No enlarged lymph nodes. TUBES, LINES AND DEVICES: Similar but larger appearance of the endoleak with [place] MUNDO supplied by the endoleak. The [...] retroperitoneal hemorrhage (more content not included)... Normal [facility] Basic Metabolic Profile (BMP )on 07-11-2024 BUN/CRE 25.2 RATIO High 07-09 [facility] Comment on above: Performed By: #### L 100.0100, L500.2500 #### [facility] [address] [place], [address] CA,Total 9.6 mg/dL Normal 8.5-10.1 [facility] Comment on above: Performed By: #### L 100.0100, L500.2500 #### [facility] [address] [place], [address] Chloride [Moles/Vol] 104 mmol/L Normal 98-107 [facility] Comment on above: Performed By: #### L 100.0100, L500.2500 #### [facility] [address] [place], [address] CO2 [Moles/Vol] 30.0 mmol/L Normal 21.0-32.0 [facility] Comment on above: Performed By: #### L 100.0100, L500.2500 #### [facility] [address] [place], [address] Creatinine [Mass/Vol] 1.63 mg/dL High 0.70-1.30 [facility] Comment on above: Result Comment: The validity of the calculated GFR GFRAA in patients over 70 years has not been determined. Clinical correlation is essential. Performed By: #### L 100.0100, L500.2500 #### [facility] [address] [place], [address] ECRCL 32.64 ml/min Normal [facility] Comment on above: Performed By: #### L 100.0100, L500.2500 #### [facility] [address] [place], [address] EST GFR - AA 52 mL/min Low >60 [facility] Comment on above: Result Comment: Afri can Cambodian GFR Calc Performed By: #### L 100.0100, L500.2500 #### [facility] [address] [place], [address] GAP 4 Low 5-15 [facility] Comment on above: Performed By: #### L 100.0100, L500.2500 #### [facility] [address] [place], [address] GFR/1.73 sq M.predicted among non-blacks MDRD (S/P/Bld) [Vol rate/Area] 43 mL/min/{1.73_m2} Low >60 [facility] Comment on above: Result Comment: Non- GFR Calc Performed By: #### L 100.0100, L500.2500 #### [facility] [address] [place], [address] Glucose [Mass/Vol] 118 mg/dL High 74-106 [facility] Comment on above: Result Comment: Fast ing Glucose result from 100 to 125 mg/dL suggests IMPAIRED HOMEOSTASIS per A.D.A. criteria. Performed By: #### L 100.0100, L500.2500 #### [facility] [address] [place], [address] Potassium [Moles/Vol] 4.1 mmol/L Normal 3.5-5.1 [facility] Comment on above: Performed By: #### L 100.0100, L500.2500 #### [facility] [address] [place], [address] Sodium [Moles/Vol] 138 mmol/L Normal 136-145 [facility] Comment on above: Performed By: #### L 100.0100, L500.2500 #### [facility] [address] [place], [address] Urea nitrogen [Mass/Vol] 41 mg/dL High 7-18 [facility] Comment on above: Performed By: #### L 100.0100, L500.2500 #### [facility] [address] [place], [address] CBC W/Diff, Automatedon 10-2 Absolute Lymph 0.90 X10 3/uL Normal 0.83-4.51 [facility] Comment on above: Performed By: #### L 100.0100, L500.2500 #### [facility] [address] [place], [address] Absolute Neut 4.8 X10 3/uL Normal 2.0-7.7 [facility] Comment on above: Performed By: #### L 100.0100, L500.2500 #### [facility] [address] [place], [address] Basophils/100 WBC (Bld) 0.5 % Normal 0-1 [facility] Comment on above: Performed By: #### L 100.0100, L500.2500 #### [facility] [address] [place], [address] Eosinophils/100 WBC (Bld) 1.7 % Normal 0-5 [facility] Comment on above: Performed By: #### L 100.0100, L500.2500 #### [facility] [address] [place], [address] Erythrocyte distribution width (RBC) [Ratio] 15.0 % High 11.6-14.6 [facility] Comment on above: Performed By: #### L 100.0100, L500.2500 #### [facility] [address] [place], [address] Hematocrit (Bld) [Volume fraction] 36.3 % Low 40-54 [facility] Comment on above: Performed By: #### L 100.0100, L500.2500 #### [facility] [address] [place], [address] Hemoglobin (Bld) [Mass/Vol] 11.8 g/dL Low 13.0-16.5 [facility] Comment on above: Performed By: #### L 100.0100, L500.2500 #### [facility] [address] [place], [address] IG% 0.500 Normal 0.0-0.9 [facility] Comment on above: Result Comment: IG% - Immature Granulocytes (promyelocytes, myelocytes and metamyelocytes) > 1% indicates that a LEFT SHIFT is Present. Performed By: #### L 100.0100, L500.2500 #### [facility] [address] [place], [address] Lymphocytes/100 WBC (Bld) 13.9 % Low 19-41 [facility] Comment on above: Performed By: #### L 100.0100, L500.2500 #### [facility] [address] [place], [address] MCH (RBC) [Entitic mass] 29.9 pg Normal 27.0-32.0 [facility] Comment on above: Performed By: #### L 100.0100, L500.2500 #### [facility] [address] [place], [address] MCHC (RBC) [Mass/Vol] 32.5 g/dL Normal 32-36 [facility] Comment on above: Performed By: #### L 100.0100, L500.2500 #### [facility] [address] [place], [address] MCV (RBC) [Entitic vol] 91.9 fL Normal 80-94 [facility] Comment on above: Performed By: #### L 100.0100, L500.2500 #### [facility] [address] [place], [address] Monocytes/100 WBC (Bld) 9.3 % Normal 0-10 [facility] Comment on above: Performed By: #### L 100.0100, L500.2500 #### [facility] [address] [place], [address] Neutrophils/100 WBC (Bld) 74.1 % High 47-70 [facility] Comment on above: Performed By: #### L 100.0100, L500.2500 #### [facility] [address] [place], [address] Nucleated RBC (Bld) [#/Vol] 0 10*3/uL Normal 0-5 [facility] Comment on above: Performed By: #### L 100.0100, L500.2500 #### [facility] [address] [place], [address] Platelet mean volume (Bld) [Entitic vol] 10.7 fL Normal 6.2-12.0 [facility] Comment on above: Performed By: #### L 100.0100, L500.2500 #### [facility] [address] [place], [address] Platelets (Bld) [#/Vol] 107 10*3/uL Low 150-450 [facility] Comment on above: Performed By: #### L 100.0100, L500.2500 #### [facility] [address] [place], [address] RBC (Bld) [#/Vol] 3.95 10*6/uL Low 4.6-6.2 [facility] Comment on above: Performed By: #### L 100.0100, L500.2500 #### [facility] [address] [place], [address] RDW SD 51.2 fl High 35.1-43.9 [facility] Comment on above: Performed By: #### L 100.0100, L500.2500 #### [facility] [address] [place], [address] WBC (Bld) [#/Vol] 6.5 10*3/uL Normal 4.4-11.0 [facility] Comment on above: Performed By: #### L 100.0100, L500.2500 #### [facility] [address] [place], [address] CNOVon 07-11-2024 CNOV Normal [facility] Chest PA and Lateralon 07-11 Chest PA and Lateral [facility] Imaging Services [address] [place] [address] Chest PA and Lateral MR#: [id number] Acct: [id number] Name: LEANA CAMEJO Rep #: [id number] : 1940 M 84 From: Marisabel Quiñonez MD PCP: Dr. Dallas Reed MD Status: [facility] ER Study: Chest PA and Lateral Date of Exam: 07/11/24 Exam# [id number] Ordering Dr: Veena Nelson DO [id number] EXAM: XR CHEST, 2 VIEWS CLINICAL INDICATION: [...] Veena Nelson DO; Dr. Dallas Reed MD Front Office Medical Assistant: Signed Normal [facility] Emergency Department Summary on 07-11-2024 Emergency Department Summary [facility] Medical Records Department [address] [place] [address] Emergency Department Summary 07/11/24 MR#: [id number] Acct: [id number] Name: LEANA CAMEJO Rep #: [id number] : 1940 84 From: Veena Nelson DO [...] or concerns reported at this time [facility] Medical History Ataxia History of echocardiogram Easy [...] (From Allergy Other Verified 07/11/24 16:12 Crestor) Vnwbuwc-HNL-OnI Reductase Allergy Other Verified 07/11/24 16:12 Inhibitor (Kzxkwlu-Xbo-Mqv Reductase Inhibitor) Family History Father Lung cancer [...] servings: 2 (more content not included)... Normal [facility] MR/BMSSalvador 07-07-2024 MR/BMSROBERT [facility] [address] [place] [address] OFFICE VISIT Date of Service: 07/07/24 MR#: [id number] Acct: [id number] Name: LEANA CAMEJO Rep #: [id number] : 1940 Provider: CHRIS Orellana Age/Sex: 84/M Location: [facility] Status: Signed with Addenda ADDENDUM by CHRIS Orellana on 07/13/24 at 1435 Intake Chief Complaint: Yearly Elijah F/u Discuss imaging Allergies lisinopril Allergy (Intermediate, Verified 07/11/24 16:12) Rash atorvastatin calcium (From Lipitor) Allergy (Verified 07/11/24 16:12) Other clonidine Allergy (Verified 07/11/24 16:12) Unknown rosuvastatin calcium (From Crestor) Allergy (Verified 07/11/24 16:12) Other Pmycmpz-XCR-UaC Reductase Inhibitor (Gbslhqx-Vok-Oyu Reductase Inhibitor) Allergy (Verified 07/11/24 16:12) Other [...] size are stable. Also received records from [facility], Dr. Kowalski had also felt that the [...] (From Crestor) Allergy (Verified 07/07/24 14:18) Other Gjtdsvm-WEK-TsZ Reductase Inhibitor (Kpepiil-Yrt-Iap Reductase Inhibitor) Allergy (Verified 05/23/24 15:46) Other Medications ???Medication ???Instructions ???Recorded ???Confirmed ???Type losartan 100 mg tablet 100 mg PO DAILY BP 05/17/19 07/07/24 History cholecalciferol (vitamin D3) 50 2,000 unit PO DAILY supplement 05/18/19 07/07/24 History mcg (2,000 unit) capsule multivitamin 1 tab PO DAILY supplement 05/18/19 07/07/24 History ascorbic acid (vitamin C) 500 mg 2, (more content not included)... Normal [facility] CNPTOUTREACHon 06-22-2024 CNPTOUTREACH Normal [facility] CNOVon 06-07-2024 CNOV Normal [facility] CBC W Auto Differential pane l (Bld)on 05-31-2024 Basophils (Bld) [#/Vol] 0.04 10*3/uL Normal <0.11 [facility] Comment on above: Order Comment: Speci men Type: BLOOD SPECIMENOrdering Facility: [facility] Address: [address] [place] [address] Performed By: #### 5 7021-8 ####[facility] LABCLIA [id number] [place] [address] [place] Basophils/100 WBC (Bld) 0.6 % Normal [facility] Comment on above: Order Comment: Speci men Type: BLOOD SPECIMENOrdering Facility: [facility] Address: [address] [place] [address] Performed By: #### 5 7021-8 ####[facility] LABCLIA [id number] [place] [address] [place] Differential cell count method Nom (Bld) Auto Normal [facility] Comment on above: Order Comment: Speci men Type: BLOOD SPECIMENOrdering Facility: [facility] Address: [address] [place] [address] Performed By: #### 5 7021-8 ####[facility] LABCLIA [id number] [place] [address] [place] Eosinophils (Bld) [#/Vol] 0.12 10*3/uL Normal <0.46 [facility] Comment on above: Order Comment: Speci men Type: BLOOD SPECIMENOrdering Facility: [facility] Address: [address] [place] [address] Performed By: #### 5 7021-8 ####[facility] LABCLIA [id number] [place] [address] [place] Eosinophils/100 WBC (Bld) 1.9 % Normal [facility] Comment on above: Order Comment: Speci men Type: BLOOD SPECIMENOrdering Facility: [facility] Address: [address] [place] [address] Performed By: #### 5 7021-8 ####[facility] LABIA [id number] [place] [address] [place] Erythrocyte distribution width (RBC) [Ratio] 15.8 % High 11.5-15.0 [facility] Comment on above: Order Comment: Speci men Type: BLOOD SPECIMENOrdering Facility: [facility] Address: [address] [place] [address] Performed By: #### 5 7021-8 ####[facility] LABIA [id number] [place] [address] [place] Hematocrit (Bld) [Volume fraction] 39.2 % Normal 39.0-51.0 [facility] Comment on above: Order Comment: Speci men Type: BLOOD SPECIMENOrdering Facility: [facility] Address: [address] [place] [address] Performed By: #### 5 7021-8 ####[facility] LABIA [id number] [place] [address] [place] Hemoglobin (Bld) [Mass/Vol] 12.6 g/dL Low 13.0-17.0 [facility] Comment on above: Order Comment: Speci men Type: BLOOD SPECIMENOrdering Facility: [facility] Address: [address] [place], [place] [address] Performed By: #### 5 7021-8 ####[facility] LABCLIA [id number] [place] [address] [place] Immature granulocytes (Bld) [#/Vol] 0.03 10*3/uL Normal <0.10 [facility] Comment on above: Order Comment: Speci men Type: BLOOD SPECIMENOrdering Facility: [facility] Address: [address] [place] [address] Performed By: #### 5 7021-8 ####[facility] LABCLIA [id number] [place] [address] [place] Immature granulocytes/100 WBC (Bld) 0.5 % Normal [facility] Comment on above: Order Comment: Speci men Type: BLOOD SPECIMENOrdering Facility: [facility] Address: [address] [place] [address] Performed By: #### 5 7021-8 ####[facility] LABCLIA [id number] [place] [address] [place] Lymphocytes (Bld) [#/Vol] 1.04 10*3/uL Normal 1.00-4.00 [facility] Comment on above: Order Comment: Speci men Type: BLOOD SPECIMENOrdering Facility: [facility] Address: [address] [place] [address] Performed By: #### 5 7021-8 ####[facility] LABCLIA [id number] [place] [address] [place] Lymphocytes/100 WBC (Bld) 16.5 % Normal [facility] Comment on above: Order Comment: Speci men Type: BLOOD SPECIMENOrdering Facility: [facility] Address: [address] [place] [address] Performed By: #### 5 7021-8 ####[facility] LABCLIA [id number] [address] [place] [address] [place] MCH (RBC) [Entitic mass] 29.7 pg Normal 26.0-34.0 [facility] Comment on above: Order Comment: Speci men Type: BLOOD SPECIMENOrdering Facility: [facility] Address: [address] [place] [address] Performed By: #### 5 7021-8 ####[facility] LABCLIA [id number] [place] [address] [place] MCHC (RBC) [Mass/Vol] 32.1 g/dL Normal 30.5-36.0 [facility] Comment on above: Order Comment: Speci men Type: BLOOD SPECIMENOrdering Facility: [facility] Address: [address] [place] [address] Performed By: #### 5 7021-8 ####[facility] LABIA [id number] [place] [address] [place] MCV (RBC) [Entitic vol] 92.5 fL Normal 80.0-100.0 [facility] Comment on above: Order Comment: Speci men Type: BLOOD SPECIMENOrdering Facility: [facility] Address: [address] [place] [address] Performed By: #### 5 7021-8 ####[facility] LABIA [id number] [place] [address] [place] Monocytes (Bld) [#/Vol] 0.63 10*3/uL Normal <0.87 [facility] Comment on above: Order Comment: Speci men Type: BLOOD SPECIMENOrdering Facility: [facility] Address: [address] [place] [address] Performed By: #### 5 7021-8 ####[facility] LABCLIA [id number] [address] [place] Monocytes/100 WBC (Bld) 10.0 % Normal [facility] Comment on above: Order Comment: Speci men Type: BLOOD SPECIMENOrdering Facility: [facility] Address: [address] [place] [address] Performed By: #### 5 7021-8 ####[facility] LABCLIA [id number] [place] [address] [place] Neutrophils (Bld) [#/Vol] 4.46 10*3/uL Normal 1.45-7.50 [facility] Comment on above: Order Comment: Speci men Type: BLOOD SPECIMENOrdering Facility: [facility] Address: [address] [place] [address] Performed By: #### 5 7021-8 ####[facility] LABCLIA [id number] [place] [address] [place] Neutrophils/100 WBC (Bld) 70.5 % Normal [facility] Comment on above: Order Comment: Speci men Type: BLOOD SPECIMENOrdering Facility: [facility] Address: [address] [place] [address] Performed By: #### 5 7021-8 ####[facility] LABCLIA [id number] [place] [address] [place] Nucleated RBC (Bld) [#/Vol] 10*3/uL Normal <0.01 [facility] Comment on above: Order Comment: Speci men Type: BLOOD SPECIMENOrdering Facility: [facility] Address: [address] [place] [address] Performed By: #### 5 7021-8 ####[facility] LABCLIA [id number] [place] [address] [place] Nucleated RBC/100 WBC (Bld) [Ratio] 0.0 /100 WBC Normal [facility] Comment on above: Order Comment: Speci men Type: BLOOD SPECIMENOrdering Facility: [facility] Address: [address] [place] [address] Performed By: #### 5 7021-8 ####[facility] LABCLIA [id number] [place] [id number] [place] Platelet mean volume (Bld) [Entitic vol] 12.5 fL Normal 9.0-12.7 [facility] Comment on above: Order Comment: Speci men Type: BLOOD SPECIMENOrdering Facility: [facility] Address: [address] [place] [address] Performed By: #### 5 7021-8 ####[facility] LABCLIA [id number] [place] [address] [place] Platelets (Bld) [#/Vol] 78 10*3/uL Low 150-400 [facility] Comment on above: Order Comment: Speci men Type: BLOOD SPECIMENOrdering Facility: [facility] Address: [address] [place] [address] Result Comment: No c lot detected. Performed By: #### 5 7021-8 ####[facility] LABCLIA [id number] [place] [address] [place] RBC (Bld) [#/Vol] 4.24 10*6/uL Normal 4.20-6.00 [facility] Comment on above: Order Comment: Speci men Type: BLOOD SPECIMENOrdering Facility: [facility] Address: [address] [place] [address] Performed By: #### 5 7021-8 ####[facility] LABIA [id number] [place] [address] [place] WBC (Bld) [#/Vol] 6.32 10*3/uL Normal 3.70-11.00 [facility] Comment on above: Order Comment: Speci men Type: BLOOD SPECIMENOrdering Facility: [facility] Address: [address] [place] [address] Performed By: #### 5 7021-8 ####[facility] LABCLIA [id number] [place] [address] [place] Comprehensive metabolic 2000 panelon 05-31-2024 Albumin [Mass/Vol] 3.7 g/dL Low 3.9-4.9 [facility] Comment on above: Order Comment: Speci men Type: BLOOD SPECIMENOrdering Facility: [facility] Address: [address] [place] [address] Performed By: #### 2 4323-8, 94312-6, 6-4, 3016-3 ####[facility] LABCLIA [id number] [place] [address] [place] ALP [Catalytic activity/Vol] 57 U/L Normal 38-113 [facility] Comment on above: Order Comment: Speci men Type: BLOOD SPECIMENOrdering Facility: [facility] Address: [address] [place] [address] Performed By: #### 2 4323-8, 84838-6, 6-4, 3016-3 ####[facility] LABCLIA [id number] [place] [address] [place] ALT [Catalytic activity/Vol] 22 U/L Normal 10-54 [facility] Comment on above: Order Comment: Speci men Type: BLOOD SPECIMENOrdering Facility: [facility] Address: [address] [place] [address] Performed By: #### 2 4323-8, 99981-7, 6-4, 3016-3 ####[facility] LABCLIA [id number] [place] [address] [place] Anion gap [Moles/Vol] 10 mmol/L Normal 8-15 [facility] Comment on above: Order Comment: Speci men Type: BLOOD SPECIMENOrdering Facility: [facility] Address: [address] [place] [address] Performed By: #### 2 4323-8, 71160-0, 6-4, 3016-3 ####[facility] LABCLIA [id number] [place] [address] [place] AST [Catalytic activity/Vol] 27 U/L Normal 14-40 [facility] Comment on above: Order Comment: Speci men Type: BLOOD SPECIMENOrdering Facility: [facility] Address: [address] [place] [address] Performed By: #### 2 4323-8, 88664-1, 6-4, 3016-3 ####[facility] LABCLIA [id number] [place] [address] [place] Bilirubin [Mass/Vol] 0.8 mg/dL Normal 0.2-1.3 [facility] Comment on above: Order Comment: Speci men Type: BLOOD SPECIMENOrdering Facility: [facility] Address: [address] [place] [address] Performed By: #### 2 4323-8, 78832-0, 6-4, 3016-3 ####[facility] LABCLIA [id number] [place] [address] [place] Calcium [Mass/Vol] 9.3 mg/dL Normal 8.5-10.2 [facility] Comment on above: Order Comment: Speci men Type: BLOOD SPECIMENOrdering Facility: [facility] Address: [address] [place] [address] Performed By: #### 2 4323-8, 73730-6, 6-4, 3016-3 ####[facility] LABCLIA [id number] [place] [address] [place] Chloride [Moles/Vol] 100 mmol/L Normal 98-107 [facility] Comment on above: Order Comment: Speci men Type: BLOOD SPECIMENOrdering Facility: [facility] Address: [address] [place] [address] Performed By: #### 2 4323-8, 71730-7, 6-4, 3016-3 ####[facility] LABCLIA [id number] [place] [address] [place] CO2 [Moles/Vol] 27 mmol/L Normal 22-30 [facility] Comment on above: Order Comment: Speci men Type: BLOOD SPECIMENOrdering Facility: [facility] Address: [address] [place] [address] Performed By: #### 2 4323-8, 28317-2, 6-4, 6-3 ####[facility] LABCLIA [id number] [place] [address] [place] Creatinine [Mass/Vol] 1.36 mg/dL High 0.73-1.22 [facility] Comment on above: Order Comment: Speci men Type: BLOOD SPECIMENOrdering Facility: [facility] Address: [address] [place] [address] Performed By: #### 2 4323-8, 59744-9, 6-4, 6-3 ####[facility] LABCLIA [id number] [place] [address] [place] Creatinine and Glomerular filtration rate.predicted panel (S/P/Bld) 51 mL/min/1.73m??? Low >=60 [facility] Comment on above: Order Comment: Speci men Type: BLOOD SPECIMENOrdering Facility: [facility] Address: [address] [place] [address] Result Comment: Keara mated Glomerular Filtration Rate [...] actual GFR. Performed By: #### 2 4323-8, 43925-6, 6-4, 6-3 ####[facility] LABCLIA [id number] [place] [address] [place] Glucose [Mass/Vol] 101 mg/dL High 74-99 [facility] Comment on above: Order Comment: Speci men Type: BLOOD SPECIMENOrdering Facility: [facility] Address: [address] [place] [address] Result Comment: The [place] Diabetes Association (ADA) provides guidance for cutoff [...] Standards of Medical Care in Diabetes 2016, [place] [employer]. Diabetes Care. 2016.39(Suppl 1). Performed By: #### 2 4323-8, 83448-0, 6-4, 3016-3 ####[facility] LABCLIA [id number] [place] [address] [place] Potassium [Moles/Vol] 4.1 mmol/L Normal 3.7-5.1 [facility] Comment on above: Order Comment: Ian lassiter Type: BLOOD SPECIMENOrdering Facility: [facility] Address: [address] [place] [address] Performed By: #### 2 4323-8, 31311-1, 6-4, 3016-3 ####[facility] LABIA [id number] [place] [id number] [place] Protein [Mass/Vol] 7.0 g/dL Normal 6.3-8.0 [facility] Comment on above: Order Comment: Ian lassiter Type: BLOOD SPECIMENOrdering Facility: [facility] Address: [address] [place] [address] Performed By: #### 2 4323-8, 19411-5, 6-4, 3016-3 ####[facility] LABCLIA [id number] [place] [address] [place] Sodium [Moles/Vol] 137 mmol/L Normal 136-144 [facility] Comment on above: Order Comment: Speci men Type: BLOOD SPECIMENOrdering Facility: [facility] Address: [address] [place], [place] [address] Performed By: #### 2 4323-8, 20734-2, 6-4, 3016-3 ####[facility] LABCLIA [id number] [place] [address] [place] Urea nitrogen [Mass/Vol] 31 mg/dL High 9-24 [facility] Comment on above: Order Comment: Speci men Type: BLOOD SPECIMENOrdering Facility: [facility] Address: [address] [place] [address] Performed By: #### 2 4323-8, 89943-9, 2275-4, 6-3 ####[facility] LABCLIA [id number] [place] [address] [place] Ferritin SerPl-ncon 2023 Ferritin [Mass/Vol] 297.0 ng/mL Normal 30.3-565.7 [facility] Comment on above: Order Comment: Speci men Type: BLOOD SPECIMENOrdering Facility: [facility] Address: [address] [place] [address] Performed By: #### 2 4323-8, 53310-1, 2275-4, 6-3 ####[facility] LABCLIA [id number] [place] [id number] [place] Iron and Iron binding capaci ty panelon 05-31-2024 Iron [Mass/Vol] 93 ug/dL Normal 41-186 [facility] Comment on above: Order Comment: Speci men Type: BLOOD SPECIMENOrdering Facility: [facility] Address: [address] [place], [place] [address] Performed By: #### 2 4323-8, 08709-7, 6-4, 3016-3 ####[facility] LABCLIA [id number] [place] [address] [place] Iron binding capacity [Mass/Vol] 271 ug/dL Normal 232-386 [facility] Comment on above: Order Comment: Speci men Type: BLOOD SPECIMENOrdering Facility: [facility] Address: [address] [place] [address] Performed By: #### 2 4323-8, 35207-3, 2276-4, 3016-3 ####[facility] [id number] [place] [address] [place] Iron/TIBC [Molar ratio] 34.3 % Normal 15.0-57.0 [facility] Comment on above: Order Comment: Speci men Type: BLOOD SPECIMENOrdering Facility: [facility] Address: [address] [place] [address] Performed By: #### 2 4323-8, 44574-0, 2276-4, 3016-3 ####[facility] [id number] [place] [address] [place] TSH SerPl-aCncon 05-31-2024 TSH Qn 4.400 m[IU]/L High 0.270-4.200 [facility] Comment on above: Order Comment: Speci men Type: BLOOD SPECIMENOrdering Facility: [facility] Address: [address] [place] [address] Performed By: #### 2 4323-8, 28232-0, 2276-4, 3016-3 ####[facility] [id number] [place] [id number] [place] Urinalysis complete panel (U )on 05-31-2024 Bacteria LM.HPF (Urine sed) [#/Area] Negative Normal Negative [facility] Comment on above: Order Comment: Speci men Type: URINE SPECIMENOrdering Facility: [facility] Address: [address] [place] [address] Performed By: #### 2 4356-8 ####[facility] LABCLIA [id number] [place] [id number] [place] Bilirubin Ql (U) Negative Normal Negative [facility] Comment on above: Order Comment: Speci men Type: URINE SPECIMENOrdering Facility: [facility] Address: [address] [place] [address] Performed By: #### 2 4356-8 ####[facility] LABCLIA [id number] [place] [address] [place] Clarity (Unsp spec) Clear Normal Clear [facility] Comment on above: Order Comment: Speci men Type: URINE SPECIMENOrdering Facility: [facility] Address: [address] [place] [address] Performed By: #### 2 4356-8 ####[facility] LABCLIA [id number] [place] [address] [place] Color (U) Yellow Normal Yellow [facility] Comment on above: Order Comment: Speci men Type: URINE SPECIMENOrdering Facility: [facility] Address: [address] [place] [address] Performed By: #### 2 4356-8 ####[facility] LABCLIA [id number] [place] [address] [place] Epithelial cells LM.HPF (Urine sed) [#/Area] None Seen Normal [facility] Comment on above: Order Comment: Speci men Type: URINE SPECIMENOrdering Facility: [facility] Address: [address] [place] [address] Performed By: #### 2 4356-8 ####[facility] LABIA [id number] [place] [address] [place] Glucose Test strip (U) [Mass/Vol] Negative Normal Negative [facility] Comment on above: Order Comment: Speci men Type: URINE SPECIMENOrdering Facility: [facility] Address: [address] [place], [place] [address] Performed By: #### 2 4356-8 ####[facility] LABCLIA [id number] [place] [address] [place] Hemoglobin Ql (U) Negative Normal Negative [facility] Comment on above: Order Comment: Speci men Type: URINE SPECIMENOrdering Facility: [facility] Address: [address] [place] [address] Performed By: #### 2 4356-8 ####[facility] LABCLIA [id number] [place] [address] [place] Hyaline casts (Urine sed) [#/Area] 1-3 /LPF Abnormal 0 /LPF [facility] Comment on above: Order Comment: Speci men Type: URINE SPECIMENOrdering Facility: [facility] Address: [address] [place] [address] Performed By: #### 2 4356-8 ####[facility] LABCLIA [id number] [place] [address] [place] Ketones Ql (U) Negative Normal Negative [facility] Comment on above: Order Comment: Speci men Type: URINE SPECIMENOrdering Facility: [facility] Address: [address] [place] [address] Performed By: #### 2 4356-8 ####[facility] LABCLIA [id number] [place] [address] [place] Leukocyte esterase Test strip Ql (U) Negative Normal Negative [facility] Comment on above: Order Comment: Speci men Type: URINE SPECIMENOrdering Facility: [facility] Address: [address] [place] [address] Performed By: #### 2 4356-8 ####[facility] LABCLIA [id number] [place] [address] [place] Nitrite Ql (U) Negative Normal Negative [facility] Comment on above: Order Comment: Speci men Type: URINE SPECIMENOrdering Facility: [facility] Address: [address] [place] [address] Performed By: #### 2 4356-8 ####[facility] LABIA [id number] [place] [address] [place] pH (U) 6.5 [pH] Normal <8.5 [facility] Comment on above: Order Comment: Speci men Type: URINE SPECIMENOrdering Facility: [facility] Address: [address] [place] [address] Performed By: #### 2 4356-8 ####[facility] LABIA [id number] [place] [address] [place] Protein (U) [Mass/Vol] Negative Normal Negative [facility] Comment on above: Order Comment: Speci men Type: URINE SPECIMENOrdering Facility: [facility] Address: [address] [place] [address] Performed By: #### 2 4356-8 ####[facility] LABIA [id number] [place] [address] [place] RBC LM.HPF (Urine sed) [#/Area] 0-2 /HPF Normal 0-2 /HPF [facility] Comment on above: Order Comment: Speci men Type: URINE SPECIMENOrdering Facility: [facility] Address: [address] [place] [address] Performed By: #### 2 4356-8 ####[facility] LABIA [id number] [place] [address] [place] Specific gravity (U) [Rel density] 1.016 Normal 1.005-1.030 [facility] Comment on above: Order Comment: Speci men Type: URINE SPECIMENOrdering Facility: [facility] Address: [address] [place] [address] Performed By: #### 2 4356-8 ####[facility] LABCLIA [id number] [place] [address] [place] Urobilinogen Ql (U) 1.0 EU/dL Normal 0.2-1.0 EU/dL [facility] Comment on above: Order Comment: Speci men Type: URINE SPECIMENOrdering Facility: [facility] Address: [address] [place] [address] Performed By: #### 2 4356-8 ####[facility] LABCLIA [id number] [place] [address] [place] WBC LM.HPF (Urine sed) [#/Area] 0-5 /HPF Normal 0-5 /HPF [facility] Comment on above: Order Comment: Speci men Type: URINE SPECIMENOrdering Facility: [facility] Address: [address] [place] [address] Performed By: #### 2 4356-8 ####[facility] LABCLIA [id number] [place] [address] [place] Vit B12 [facility] Cobalamin (Vitamin B12) [Mass/Vol] 1487 pg/mL High 232-1245 [facility] Comment on above: Order Comment: Speci men Type: BLOOD SPECIMENOrdering Facility: [facility] Address: [address] [place] [address] Performed By: #### 2 132-9 ####[facility] LABCLIA [id number] [place] [address] [place] Brain without Contraston Brain without Contrast [facility] [address] [place], [place] [address] Brain without Contrast MR#: [id number] Acct: [id number] Name: LEANA CAMEJO Rep #: [id number] : 1940 M 84 From: Valerie yates MD PCP: Dr. Dallas Reed MD Status: ADM ELSIE Study: Brain without Contrast Date of Exam: 05/24/24 Exam# [id number] Ordering Dr: Margy Stark MD [id number] HISTORY: CVA, C/I DIZZINESS, OFF BALANCE. TECHNIQUE: [...] Signed: Valerie Alexandra MD at 11:25 EDT Reading Location ID and State: [facility] / [place] Tel , Service support , CC: Dr. Margy Stark MD; Dr. Dallas Reed MD Front Office Medical Assistant: Signed Normal [facility] CBC W/Diff, Automatedon SMEAR COMMENT COMMENT Normal [facility] Comment on above: Result Comment: THRO MBOCYTOPENIA Performed By: #### L 501.9520, L501.9985, L500.4050, L100.0100, L500.4100 ####[facility] [address] [place], [address] Comprehensive Metabolic Prof ilon 05-24-2024 Albumin [Mass/Vol] 2.8 g/dL Low 3.2-5.0 [facility] Comment on above: Order Comment: Comme nts: NPO at [place] prior to lipid panel Performed By: #### L 501.9520, L501.9985, L500.4050, L100.0100, L500.4100 ####[facility] [address] [place], [address] Albumin/Globulin [Mass ratio] 0.8 {ratio} Low 0.9-2.4 [facility] Comment on above: Order Comment: Comme nts: NPO at [place] prior to lipid panel Performed By: #### L 501.9520, L501.9985, L500.4050, L100.0100, L500.4100 ####[facility] [address] [place], [address] ALK P 52 U/L Normal 45-117 [facility] Comment on above: Order Comment: Comme nts: NPO at [place] prior to lipid panel Performed By: #### L 501.9520, L501.9985, L500.4050, L100.0100, L500.4100 ####[facility] [address] [place], [address] ALT [Catalytic activity/Vol] 22 U/L Normal 16-61 [facility] Comment on above: Order Comment: Comme nts: NPO at [place] prior to lipid panel Performed By: #### L 501.9520, L501.9985, L500.4050, L100.0100, L500.4100 ####[facility] [address] [place], [address] AST [Catalytic activity/Vol] 21 U/L Normal 15-37 [facility] Comment on above: Order Comment: Comme nts: NPO at [place] prior to lipid panel Performed By: #### L 501.9520, L501.9985, L500.4050, L100.0100, L500.4100 ####[facility] [address] [place], [address] Bilirubin [Mass/Vol] 0.70 mg/dL Normal 0.20-1.00 [facility] Comment on above: Order Comment: Comme nts: NPO at [place] prior to lipid panel Result Comment: For patients on eltrombopag therapy, use of Dimension [place] TBIL is not recommended. Performed By: #### L 501.9520, L501.9985, L500.4050, L100.0100, L500.4100 ####[facility] [address] [place], [address] BUN/CRE 23.0 RATIO High 10-20 [facility] Comment on above: Order Comment: Comme nts: NPO at [place] prior to lipid panel Performed By: #### L 501.9520, L501.9985, L500.4050, L100.0100, L500.4100 ####[facility] [address] [place], [address] CA,Total 8.5 mg/dL Normal 8.5-10.1 [facility] Comment on above: Order Comment: Comme nts: NPO at [place] prior to lipid panel Performed By: #### L 501.9520, L501.9985, L500.4050, L100.0100, L500.4100 ####[facility] [address] [place], [address] Chloride [Moles/Vol] 110 mmol/L High 98-107 [facility] Comment on above: Order Comment: Comme nts: NPO at [place] prior to lipid panel Performed By: #### L 501.9520, L501.9985, L500.4050, L100.0100, L500.4100 ####[facility] [address] [place], [address] CO2 [Moles/Vol] 25.0 mmol/L Normal 21.0-32.0 [facility] Comment on above: Order Comment: Comme nts: NPO at [place] prior to lipid panel Performed By: #### L 501.9520, L501.9985, L500.4050, L100.0100, L500.4100 ####[facility] [address] [place], [address] Creatinine [Mass/Vol] 1.26 mg/dL Normal 0.70-1.30 [facility] Comment on above: Order Comment: Comme nts: NPO at [place] prior to lipid panel Result Comment: The validity of the calculated GFR GFRAA in patients over 70 years has not been determined. Clinical correlation is essential. Performed By: #### L 501.9520, L501.9985, L500.4050, L100.0100, L500.4100 ####[facility] [address] [place], [address] ECRCL 42.22 ml/min Normal [facility] Comment on above: Order Comment: Comme nts: NPO at [place] prior to lipid panel Performed By: #### L 501.9520, L501.9985, L500.4050, L100.0100, L500.4100 ####[facility] [address] [place], [address] EST GFR - AA 70 mL/min Normal >60 [facility] Comment on above: Order Comment: Comme nts: NPO at [place] prior to lipid panel Result Comment: Afri can [place] GFR Calc Performed By: #### L 501.9520, L501.9985, L500.4050, L100.0100, L500.4100 ####[facility] [address] [place], [address] GAP 6 Normal 5-15 [facility] Comment on above: Order Comment: Comme nts: NPO at [place] prior to lipid panel Performed By: #### L 501.9520, L501.9985, L500.4050, L100.0100, L500.4100 ####[facility] [address] [place], [address] GFR/1.73 sq M.predicted among non-blacks MDRD (S/P/Bld) [Vol rate/Area] 58 mL/min/{1.73_m2} Low >60 [facility] [facility] Comment on above: Order Comment: Comme nts: NPO at [place] prior to lipid panel Result Comment: Non- GFR Calc Performed By: #### L 501.9520, L501.9985, L500.4050, L100.0100, L500.4100 ####[facility] [address] [place], [address] Globulin (S) [Mass/Vol] 3.5 g/dL Normal 2.2-4.2 [facility] Comment on above: Order Comment: Comme nts: NPO at [place] prior to lipid panel Performed By: #### L 501.9520, L501.9985, L500.4050, L100.0100, L500.4100 ####[facility] [address] [place], [address] Glucose [Mass/Vol] 91 mg/dL Normal 74-106 [facility] Comment on above: Order Comment: Comme nts: NPO at [place] prior to lipid panel Performed By: #### L 501.9520, L501.9985, L500.4050, L100.0100, L500.4100 ####[facility] [address] [place], [address] Potassium [Moles/Vol] 3.6 mmol/L Normal 3.5-5.1 [facility] Comment on above: Order Comment: Comme nts: NPO at [place] prior to lipid panel Performed By: #### L 501.9520, L501.9985, L500.4050, L100.0100, L500.4100 ####[facility] [address] [place], [address] Sodium [Moles/Vol] 141 mmol/L Normal 136-145 [facility] Comment on above: Order Comment: Comme nts: NPO at [place] prior to lipid panel Performed By: #### L 501.9520, L501.9985, L500.4050, L100.0100, L500.4100 ####[facility] [address] [place], [address] T PROT 6.3 g/dL Low 6.4-8.2 [facility] Comment on above: Order Comment: Comme nts: NPO at [place] prior to lipid panel Performed By: #### L 501.9520, L501.9985, L500.4050, L100.0100, L500.4100 ####[facility] [address] [place], [address] Urea nitrogen [Mass/Vol] 29 mg/dL High 7-18 [facility] Comment on above: Order Comment: Comme nts: NPO at [place] prior to lipid panel Performed By: #### L 501.9520, L501.9985, L500.4050, L100.0100, L500.4100 ####[facility] [address] [place], [address] Discharge Instructionon 0 Discharge Instruction [facility] Medical Records Department [address] [place] [address] Instructions for Home/Discharge Instructions 05/24/24 1136 MR#: [id number] Acct: [id number] Name: LEANA CAMEJO Rep #: [id number] : 1940 84 From: Brant Alcantara MD [...] Avendano; Hortensia Oden; Manuel Acevedo; Kourtney Randolph; Diogenes Ashton; Margy Stark Instructions Additional Instructions / Restrictions: [...] can be placed): Home, Self Care 05/24/24 5513 Brant Alcantara MD CC: Carine Rodríguez; Roula [...] MD; Dr. Dallas Reed MD; Dr. Kourtney Randloph MD; Luciana Guerra DO; Diogenes Ashton MD Signed Normal [facility] Hemoglobin A1con 05-24-2024 HbA1c (Bld) [Mass fraction] 4.8 % Normal 3.8-5.6 [facility] Comment on above: Result Comment: Norm al < 5.7 % Prediabetic 5.7 - 6.4 % Diabetic >or= 6.5 % Please note range changes. Performed By: #### L 501.9520, L501.9985, L500.4050, L100.0100, L500.4100 ####[facility] [address] [facility] [place], [address] Lipid Profileon 05-24-2024 Cholesterol [Mass/Vol] 180 mg/dL Normal 200 [facility] Comment on above: Order Comment: Comme nts: NPO at [place] prior to lipid panel Result Comment: <200 mg/dL Desirable 200-240 mg/dL Borderline >240 mg/dL High Risk Performed By: #### L 501.9520, L501.9985, L500.4050, L100.0100, L500.4100 ####[facility] [address] [facility] [place], [address] Cholesterol in HDL [Mass/Vol] 44 mg/dL Normal [facility] Comment on above: Order Comment: Comme nts: NPO at [place] prior to lipid panel Result Comment: The drugs N-Acetylcysteine and Metamizole may falsely depress this assay. Reference Range HDL <40 mg/dL Low HDL Cholesterol HDL >or= 60 mg/dL High HDL Cholesterol Performed By: #### L 501.9520, L501.9985, L500.4050, L100.0100, L500.4100 ####[facility] [address] [place], [address] Cholesterol in LDL [Mass/Vol] 121 mg/dL Normal 0-130 [facility] Comment on above: Order Comment: Comme nts: NPO at [place] prior to lipid panel Performed By: #### L 501.9520, L501.9985, L500.4050, L100.0100, L500.4100 ####[facility] [address] [facility] [place], [address] Cholesterol in VLDL [Mass/Vol] 15 mg/dL Normal 5-40 [facility] Comment on above: Order Comment: Comme nts: NPO at [place] prior to lipid panel Performed By: #### L 501.9520, L501.9985, L500.4050, L100.0100, L500.4100 ####[facility] [address] [place], [address] Triglyceride [Mass/Vol] 76 mg/dL Normal [facility] Comment on above: Order Comment: Comme nts: NPO at [place] prior to lipid panel Result Comment: The drugs N-Acetylcysteine and Metamizole may falsely depress this assay. Serum Triglycerides Reference Interval Normal <150 mg/dL Borderline high 150 - 199 mg/dL High 200 - 499 mg/dL Very High > or = 500 mg/dL Performed By: #### L 501.9520, L501.9985, L500.4050, L100.0100, L500.4100 ####[facility] [address] [facility] [place], [address] MR/CON.PCM.NEon 05-24-2024 MR/CON.PCM.NE [facility] Medical Records Department [address] [place] [address] Consultation - Neurology 05/24/24 1237 MR#: [id number] Acct: [id number] Name: LEANA CAMEJO Rep #: [id number] : 1940 84 From: Roula Polk MD PCP: Dr. Dallas Reed MD Status:DIS ELSIE Location: [place] [address] Assessment and Plan: Neuro Assessment/Plan LEANA CAMEJO [...] appropriate treatment and workup. Roula Polk MD [facility] Teleneurology dept HPI Consult Data Date of [...] On my evaluation , patient's symptoms resolved. [facility] Medical History History of echocardiogram Easy bruising [...] (From Allergy Other Verified 05/23/24 15:46 Crestor) Yzzhntu-WCO-PyE Reductase Allergy Other Verified 05/23/24 15:46 Inhibitor (Statins (more content not included)... Normal [facility] Thyroid Stim Hormone (TSH)on 05-24-2024 TSH 3.380 uIU/mL Normal 0.358-3.740 [facility] Comment on above: Order Comment: Comme nts: NPO at [place] prior to lipid panel Performed By: #### L 501.9520, L501.9985, L500.4050, L100.0100, L500.4100 ####[facility] [address] [place], [address] 12 Lead EKGon 05-23-2024 12 Lead EKG [facility] Cardiovascular Services [address] [place] [address] 12 Lead EKG 05/23/24 1630 MR#: [id number] Acct: [id number] Name: LEANA CAMEJO Rep #: [id number] : 1940 84 From: Donato Longoria MD Attending Dr: Dr. Brant Alcantara MD Status: DIS ELSIE Ordering Dr: Ganga Benito DO Date: 05/23/24 Location: [facility] Sex: M C Admitted: 05/23/24 Test Reason [...] ( Sokolow-Lindsay ) Borderline ECG Confirmed by VON LAWTON, DONATO ([id number]), loan expeditor BENITA NUNN ([id number]) on 05/25/2024 1:45:12 PM Referred By: SAUL Confirmed By:DONATO LONGORIA MD 05/25/24 1345 Date Donato Longoria MD CC: Dr. Brant Alcantara MD; Dr. Ganga Benito DO; Dr. Dallas Reed MD Signed Normal [facility] Basic Metabolic Profile (BMP )on 05-23-2024 BUN/CRE 25.8 RATIO High 10-20 [facility] Comment on above: Performed By: #### L 100.0100, L300.3900, L300.4310, L500.2500 ####[facility] [address] [place], [address] CA,Total 9.8 mg/dL Normal 8.5-10.1 [facility] Comment on above: Performed By: #### L 100.0100, L300.3900, L300.4310, L500.2500 ####[facility] [address] [place], [address] Chloride [Moles/Vol] 108 mmol/L High 98-107 [facility] Comment on above: Performed By: #### L 100.0100, L300.3900, L300.4310, L500.2500 ####[facility] [address] [place], [address] CO2 [Moles/Vol] 26.0 mmol/L Normal 21.0-32.0 [facility] Comment on above: Performed By: #### L 100.0100, L300.3900, L300.4310, L500.2500 ####[facility] [address] [place], [address] Creatinine [Mass/Vol] 1.32 mg/dL High 0.70-1.30 [facility] Comment on above: Result Comment: The validity of the calculated GFR GFRAA in patients over 70 years has not been determined. Clinical correlation is essential. Performed By: #### L 100.0100, L300.3900, L300.4310, L500.2500 ####[facility] [address] [place], [address] ECRCL 40.30 ml/min Normal [facility] Comment on above: Performed By: #### L 100.0100, L300.3900, L300.4310, L500.2500 ####[facility] [address] [place], [address] EST GFR - AA 66 mL/min Normal >60 [facility] Comment on above: Result Comment: Afri can Camb[place]ian GFR Calc Performed By: #### L 100.0100, L300.3900, L300.4310, L500.2500 ####[facility] [address] [place], [address] GAP 7 Normal 5-15 [facility] Comment on above: Performed By: #### L 100.0100, L300.3900, L300.4310, L500.2500 ####[facility] [address] [place], [address] GFR/1.73 sq M.predicted among non-blacks MDRD (S/P/Bld) [Vol rate/Area] 55 mL/min/{1.73_m2} Low >60 [facility] Comment on above: Result Comment: Non- GFR Calc Performed By: #### L 100.0100, L300.3900, L300.4310, L500.2500 ####[facility] [address] [place], [address] Glucose [Mass/Vol] 122 mg/dL High 74-106 [facility] Comment on above: Result Comment: Fast ing Glucose result from 100 to 125 mg/dL suggests IMPAIRED HOMEOSTASIS per A.D.A. criteria. Performed By: #### L 100.0100, L300.3900, L300.4310, L500.2500 ####[facility] [address] [place], [address] Potassium [Moles/Vol] 4.1 mmol/L Normal 3.5-5.1 [facility] Comment on above: Performed By: #### L 100.0100, L300.3900, L300.4310, L500.2500 ####[facility] [address] [place], [address] Sodium [Moles/Vol] 141 mmol/L Normal 136-145 [facility] Comment on above: Performed By: #### L 100.0100, L300.3900, L300.4310, L500.2500 ####[facility] [address] [place], [address] Urea nitrogen [Mass/Vol] 34 mg/dL High 7-18 [facility] Comment on above: Performed By: #### L 100.0100, L300.3900, L300.4310, L500.2500 ####[facility] [address] [place], [address] CBC W/Diff, Automatedon 09-0 3-2023 Absolute Lymph 0.99 X10 3/uL Normal 0.83-4.51 [facility] Comment on above: Performed By: #### L 100.0100, L300.3900, L300.4310, L500.2500 #### [facility] [address] [place], [address] Absolute Neut 3.7 X10 3/uL Normal 2.0-7.7 [facility] Comment on above: Performed By: #### L 100.0100, L300.3900, L300.4310, L500.2500 #### [facility] [address] [place], [address] Basophils/100 WBC (Bld) 0.4 % Normal 0-1 [facility] Comment on above: Performed By: #### L 100.0100, L300.3900, L300.4310, L500.2500 #### [facility] [address] [place], [address] Eosinophils/100 WBC (Bld) 0.6 % Normal 0-5 [facility] Comment on above: Performed By: #### L 100.0100, L300.3900, L300.4310, L500.2500 #### [facility] [address] [place], [address] Erythrocyte distribution width (RBC) [Ratio] 15.6 % High 11.6-14.6 [facility] Comment on above: Performed By: #### L 100.0100, L300.3900, L300.4310, L500.2500 #### [facility] [address] [place], [address] Hematocrit (Bld) [Volume fraction] 41.6 % Normal 40-54 [facility] Comment on above: Performed By: #### L 100.0100, L300.3900, L300.4310, L500.2500 #### [facility] [address] [place], [address] Hemoglobin (Bld) [Mass/Vol] 13.2 g/dL Normal 13.0-16.5 [facility] Comment on above: Performed By: #### L 100.0100, L300.3900, L300.4310, L500.2500 #### [facility] [address] [place], [address] IG% 0.400 Normal 0.0-0.9 [facility] Comment on above: Result Comment: IG% - Immature Granulocytes (promyelocytes, myelocytes and metamyelocytes) > 1% indicates that a LEFT SHIFT is Present. Performed By: #### L 100.0100, L300.3900, L300.4310, L500.2500 #### [facility] [address] [place], [address] Lymphocytes/100 WBC (Bld) 19.0 % Normal 19-41 [facility] Comment on above: Performed By: #### L 100.0100, L300.3900, L300.4310, L500.2500 #### [facility] [address] [place], [address] MCH (RBC) [Entitic mass] 28.8 pg Normal 27.0-32.0 [facility] Comment on above: Performed By: #### L 100.0100, L300.3900, L300.4310, L500.2500 #### [facility] [address] [place], [address] MCHC (RBC) [Mass/Vol] 31.7 g/dL Low 32-36 [facility] Comment on above: Performed By: #### L 100.0100, L300.3900, L300.4310, L500.2500 #### [facility] [address] [place], [address] MCV (RBC) [Entitic vol] 90.6 fL Normal 80-94 [facility] Comment on above: Performed By: #### L 100.0100, L300.3900, L300.4310, L500.2500 #### [facility] [address] [place], [address] Monocytes/100 WBC (Bld) 8.1 % Normal 0-10 [facility] Comment on above: Performed By: #### L 100.0100, L300.3900, L300.4310, L500.2500 #### [facility] [address] [place], [address] Neutrophils/100 WBC (Bld) 71.5 % High 47-70 [facility] Comment on above: Performed By: #### L 100.0100, L300.3900, L300.4310, L500.2500 #### [facility] [address] [place], [address] Nucleated RBC (Bld) [#/Vol] 0 10*3/uL Normal 0-5 [facility] Comment on above: Performed By: #### L 100.0100, L300.3900, L300.4310, L500.2500 #### [facility] [address] [place], [address] Platelet mean volume (Bld) [Entitic vol] 10.2 fL Normal 6.2-12.0 [facility] Comment on above: Performed By: #### L 100.0100, L300.3900, L300.4310, L500.2500 #### [facility] [address] [place], [address] Platelets (Bld) [#/Vol] 108 10*3/uL Low 150-450 [facility] Comment on above: Performed By: #### L 100.0100, L300.3900, L300.4310, L500.2500 #### [facility] [address] [place], [address] RBC (Bld) [#/Vol] 4.59 10*6/uL Low 4.6-6.2 [facility] Comment on above: Performed By: #### L 100.0100, L300.3900, L300.4310, L500.2500 #### [facility] [address] [place], [address] RDW SD 52.4 fl High 35.1-43.9 [facility] Comment on above: Performed By: #### L 100.0100, L300.3900, L300.4310, L500.2500 #### [facility] [address] [place], [address] WBC (Bld) [#/Vol] 5.2 10*3/uL Normal 4.4-11.0 [facility] Comment on above: Performed By: #### L 100.0100, L300.3900, L300.4310, L500.2500 #### [facility] [address] [place], [address] CNOVon 05-23-2024 CNOV Normal [facility] CNPNon 05-23-2024 CNPN Normal [facility] CTA Head AND Neck W/ Contras ton 05-23-2024 CTA Head AND Neck W/ Contrast [facility] Imaging Services [address] [place] [address] CTA Head AND Neck W/ Contrast MR#: [id number] Acct: [id number] Name: LEANA CAMEJO Rep #: [id number] : 1940 M 84 From: Ana Palomino PCP: Dr. Dallas Reed MD Status: [facility] Study: CTA Head AND Neck W/ Contrast Date of Exam: Exam# [id number] Ordering Dr: Ganga Benito DO [id number] STUDY: CTA HEAD AND NECK WITH CONTRAST [...] There is no demonstrated aneurysm of the [place]. There is no demonstrated abnormality [...] Signed: Ana Gong MD at 19:04 EDT , CC: Dr. Ganga Benito DO; Dr. Dallas Reed MD Front Office Medical Assistant: Signed Normal [facility] Chest 1 View (Portable)on Chest 1 View (Portable) [facility] Imaging Services [address] [place] [address] Chest 1 View (Portable) MR#: [id number] Acct: [id number] Name: LEANA CAMEJO Rep #: [id number] : 1940 84 From: Ana Palomino PCP: Dr. Dallas Reed MD Status: PRE ER Study: Chest 1 View (Portable) Date of Exam: 05/23/24 Exam# [id number] Ordering Dr: Ganga Benito DO [id number] STUDY: X-RAY CHEST REASON FOR EXAM: Male, [...] Signed: Ana Gong MD at 17:16 EDT , CC: Dr. Ganga Benito DO; Dr. Dallas Reed MD Front Office Medical Assistant: Signed Normal [facility] Echo Completeon 05-23-2024 Echo Complete [facility] Cardiovascular Services [address] [place] [address] Echo Complete 05/24/24 0855 MR#: [id number] Acct: [id number] Name: LEANA CAMEJO Rep #: [id number] : 1940 84 From: Donato Longoria MD Attending Dr: Dr. Brant Alcantara MD Status: ADM ELSIE Ordering Dr: Margy Stark MD Date: 05/23/24 Location: U Sex: M C Admitted: 05/23/24 Reason For [...] Performed By: Kala Dc, KATHRYN, RVT 05/24/24 1027 Date Donato Longoria MD CC: Dr. Margy Stark MD; Dr. Brant Alcantara MD; Dr. Dallas Reed MD Date Dictated: 05/24/24 0855 Date Transcribed: 05/24/24 1027 Front Office Medical Assistant: Signed Normal [facility] Emergency Department Summary on 05-23-2024 Emergency Department Summary [facility] Medical Records Department [address] [place] [address] Emergency Department Summary 05/23/24 MR#: [id number] Acct: [id number] Name: LEANA CAMEJO Rep #: [id number] : 1940 84 From: Ganga Benito DO PCP: Dr. Dallas Reed MD Status:REG ER Location: ED HPI History of Present Illness [facility]: [facility] Medical History Abdominal aortic 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 [...] (From Allergy Other Verified 05/23/24 15:46 Crestor) Hvybwve-HRR-MwN Reductase Allergy Other Verified 05/23/24 15:46 Inhibitor (Lnaridu-Tuw-Smm Reductase Inhibitor) Family History Father Lung cancer [...] H 174/79 (more content not included)... Normal [facility] H AND P Exam - Hospitaliston 05-23-2024 H&P Exam - Hospitalist [facility] Medical Records Department [address] [place] [address] H P Exam - Hospitalist 05/23/241958 MR#: [id number] Acct: [id number] Name: LEANA CAMEJO Rep #: [id number] : 1940 84 From: Margy Stark MD [...] per GFR trending who presents to the [facility] ED on 05/23/2024 with history of feeling [...] rhythm with no acute evidence of ischemia. [facility] Medical History History of echocardiogram Easy bruising [...] (From Allergy Other Verified 05/23/24 15:46 Crestor) Fndrjew-OTL-GzY Reductase Allergy Other Verified 05/23/24 15:46 Inhibitor (Sgljxmz-Jki-Har Reductase Inhibitor) Family History Father Lung cancer Liver cancer Mother Oral cancer Surgical History (Updated 05/23/24 @ 20:[address] Margy Stark MD) S/P AAA repair History of right-sided carotid endarterectomy Hx of cataract surgery Hx of appendectomy History of tonsillectomy History of back surgery (more content not included)... [facility] L501.4020on 05-23-2024 TROPONIN-I HS 34 pg/mL Normal 3.0-78.0 [facility] Comment on above: Order Comment: 'TROP ' Serial specimen #1, #2 or #3: 1 Result Comment: [place] rose Note: New Test Units and Gender Specific Reference Ranges. For more information see Policy Stat Procedure [place] High Sensitivity Troponin (TNIH) and attachments. Performed By: #### L 501.4020 ####[facility] [address] [place], [address] Magnesiumon 05-23-2024 Magnesium [Mass/Vol] 2.4 mg/dL Normal 1.6-2.6 [facility] Comment on above: Order Comment: Comme nts: may add to ED labs Performed By: #### L 501.2450, L100.0100, BTS, L500.4050 #### [facility] [address] [place], [address] Partial Thromboplast Timeon 05-23-2024 aPTT Coag (Bld) [Time] 38.8 s High 24.1-36.2 [facility] Comment on above: Performed By: #### L 100.0100, L300.3900, L300.4310, L500.2500 ####[facility] [address] [place], [address] Prothrombin Time w/INRon INR Coag (PPP) [Relative time] 1.1 {INR} Normal [facility] Comment on above: Performed By: #### L 100.0100, L300.3900, L300.4310, L500.2500 ####[facility] [address] [place], [address] PT Coag (PPP) [Time] 14.0 s Normal 11.7-14.9 [facility] Comment on above: Performed By: #### L 100.0100, L300.3900, L300.4310, L500.2500 ####[facility] [address] [place], [address] No Panel Informationon 02-08 Radiology Study observation (narrative) [facility] XR Shoulder - left 3 Viewson 02-09-2024 IMPRESSION: Degenerative changes as described. Front Office Medical Assistant: NATALY Transcribe Date/Time: Feb 09 2024 4:46P Dictated by : JACKELIN KHAN MD This examination was interpreted and the report reviewed and electronically signed by: JACKELIN KHAN MD on Feb 09 2024 4:47PM [facility] DIVISION OF RADIOLOGY * * *Final Report* [...] exposure partially visualized. DIVISION OF RADIOLOGY Provider, [facility] * * *Final Report* * [...] visualized. IMPRESSION IMPRESSION: Degenerative changes as described. Front Office Medical Assistant: NATALY Transcribe Date/Time: Feb 09 2024 4:46P Dictated by : JACKELIN KHAN MD This examination was interpreted and the report reviewed and electronically signed by: JACKELIN KHAN MD on Feb 09 2024 4:47PM EST [facility] XR Shoulder - right 3 Viewso n 02-09-2024 IMPRESSION: Degenerative changes as described. Front Office Medical Assistant: NATALY Transcribe Date/Time: Feb 09 2024 4:47P Dictated by : JACKELIN KHAN MD This examination was interpreted and the report reviewed and electronically signed by: JACKELIN KHAN MD on Feb 09 2024 4:48PM EST DIVISION OF RADIOLOGY * * *Final Report* [...] prior granulomatous exposure. DIVISION OF RADIOLOGY Provider, [facility] - 02/09/2024 * * *Final Report* * [...] exposure. IMPRESSION IMPRESSION: Degenerative changes as described. Front Office Medical Assistant: NATALY Transcribe Date/Time: Feb 09 2024 4:47P Dictated by : JACKELIN KHAN MD This examination was interpreted and the report reviewed and electronically signed by: JACKELIN KHAN MD on Feb 09 2024 4:48PM EST [facility] XR Shoulder - right 3 ViewsO rdered By: [facility] Provider on 02-09-2024 [facility] No Panel InformationOrdered By: Jovanny Rodriguez on 08-03-2023 Endomysial IgA Antibody Negative Negative [facility] Serum IgA measurement (units /volume)Ordered By: Jovanny Rodriguez on 08-03-2023 IgA Qn (S) 362 mg/dL 61-437 [facility] Comment on above: Performed at: [facility] [employer] [address] [id number] Director: Jovanny Walden PhD, Phone: [phone] Serum or plasma C reactive p rotein measurement (mass/volume)Ordered By: Jvoanny Rodriguez on 08-03-2023 CRP [Mass/Vol] mg/L 0.0-3.0 [facility] Comment on above: C-Reactive Protein ( CRP) provides useful information for thediagnosis, therapy and monitoring of inflammatory processesand associated diseases. For the evaluation of Relative Riskfor Cardiovascular Disease, a High Sensitivity CRP (HSCRP)should be ordered. Serum tissue transglutaminas e IgA antibody assay (units/volume)Ordered By: Jovanny Rodriguez on 08-03-2023 tTG IgA Qn (S) <2 U/mL 0-3 [facility] Comment on above: Negative 0 - 3 Weak Positive 4 - 10 Positive >10 Tissue Transglutaminase (tTG) has been identified as the endomysial antigen. Studies have demonstr- ated that endomysial IgA antibodies have over 99% specificity for gluten sensitive enteropathy. Basophil percentageOrdered B y: Benita Reece on 05-26-2023 Creatinine [Mass/Vol] 1.1 mg/dL 0.70-1.30 [facility] No Panel InformationOrdered By: Benita Reece on 05-26-2023 Bedside Estimated GFR (eGFR) > 60.0000 mL/min >60 [facility] Basophil percentageOrdered B y: Omid Perez on 04-19-2023 Chloride [Moles/Vol] 104 mmol/L 98-107 [facility] Glucose [Mass/Vol] 102 mg/dL 74-106 [facility] Comment on above: Fasting Glucose resu lt from 100 to 125 mg/dL suggests IMPAIRED HOMEOSTASIS per A.D.A. criteria. Potassium [Moles/Vol] 3.7 mmol/L 3.5-5.1 [facility] Sodium [Moles/Vol] 139 mmol/L 136-145 [facility] Laboratory - Chemistry and C hemistry - challengeOrdered By: Omid Perez on 04-19-2023 CO2 [Moles/Vol] 33.0 mmol/L 21.0-32.0 [facility] Urea nitrogen/Creatinine [Mass ratio] 18.7 mg/mg 10-20 [facility] No Panel InformationOrdered By: Omid Perez on 04-19-2023 Estimated GFR (MDRD) Amer 57 mL/min >60 [facility] Comment on above: GFR Calc Estimated GFR (MDRD) Non-Af Amer 48 mL/min >60 [facility] Comment on above: Non- GFR Calc Serum or plasma calcium jossie urement (mass/volume)Ordered By: Omid Perez on 04-19-2023 Calcium [Mass/Vol] 8.9 mg/dL 8.5-10.1 [facility] Serum or plasma creatinine m easurement (mass/volume)Ordered By: Omid Perez on 04-19-2023 Creatinine [Mass/Vol] 1.50 mg/dL 0.70-1.30 [facility] Comment on above: The validity of the calculated GFR & GFRAA in patients over 70 years has not been determined. Clinical correlation is essential. Serum or plasma urea nitroge n measurement (mass/volume)Ordered By: Omid Perez on 04-19-2023 Urea nitrogen [Mass/Vol] 28 mg/dL 7-18 [facility] Thin prep Papanicolaou smear with manual screeningOrdered By: Omid Perez on 04-19-2023 Thin prep Papanicolaou smear with manual screening 2 5-15 [facility] Absolute lymphocyte countOrd ered By: Omid Perez on 04-08-2023 Lymphocytes Auto (Unsp spec) [#/Vol] 1.37 10*3/uL 0.83-4.51 [facility] Basophil percentageOrdered B y: Omid Perez on 04-08-2023 Basophils/100 WBC (Bld) 0.3 % 0-1 [facility] Chloride [Moles/Vol] 108 mmol/L 98-107 [facility] Eosinophils/100 WBC (Bld) 1.6 % 0-5 [facility] Glucose [Mass/Vol] 96 mg/dL 74-106 [facility] Neutrophils (Bld) [#/Vol] 6.3 10*3/uL 2.0-7.7 [facility] Neutrophils/100 WBC (Bld) 71.5 % 47-70 [facility] Potassium [Moles/Vol] 3.6 mmol/L 3.5-5.1 [facility] Sodium [Moles/Vol] 142 mmol/L 136-145 [facility] WBC (Bld) [#/Vol] 8.8 10*3/uL 4.4-11.0 [facility] Blood erythrocytes count (nu mber/volume)Ordered By: Omid Perez on 04-08-2023 RBC (Bld) [#/Vol] 3.95 10*6/uL 4.6-6.2 [facility] Blood hemoglobin measurement (mass/volume)Ordered By: Omid Perez on 04-08-2023 Hemoglobin (Bld) [Mass/Vol] 11.8 g/dL 13.0-16.5 [facility] Blood lymphocytes/100 leukoc ytesOrdered By: Omid Perez on 04-08-2023 Lymphocytes/100 WBC (Bld) 15.5 % 19-41 [facility] Blood monocytes/100 leukocyt esOrdered By: Omid Perez on 04-08-2023 Monocytes/100 WBC (Bld) 9.7 % 0-10 [facility] Blood platelet mean volumeOr dered By: Omid Perez on 04-08-2023 Platelet mean volume (Bld) [Entitic vol] 10.5 fL 6.2-12.0 [facility] Determination of erythrocyte mean corpuscular volume (MCV)Ordered By: Omid Perez on 04-08-2023 MCV (RBC) [Entitic vol] 92.2 fL 80-94 [facility] Hematocrit Auto (Bld) [Volum e fraction]Ordered By: Omid Perez on 04-08-2023 Hematocrit (Bld) [Volume fraction] 36.4 % 40-54 [facility] Laboratory - Chemistry and C hemistry - challengeOrdered By: Omid Perez on 04-08-2023 CO2 [Moles/Vol] 28.0 mmol/L 21.0-32.0 [facility] Urea nitrogen/Creatinine [Mass ratio] 18.0 mg/mg 10-20 [facility] Laboratory - Hematology and Cell countsOrdered By: Omid Perez on 04-08-2023 Erythrocyte distribution width (RBC) [Entitic vol] 51.8 fL 35.1-43.9 [facility] Erythrocyte distribution width (RBC) [Ratio] 15.3 % 11.6-14.6 [facility] Immature granulocytes/100 WBC (Bld) 1.400 % 0.0-0.9 [facility] Comment on above: IG% - Immature Granu locytes (promyelocytes, myelocytes and metamyelocytes) > 1% indicates that a LEFT SHIFT is Present. MCH (RBC) [Entitic mass] 29.9 pg 27.0-32.0 [facility] Nucleated RBC/100 WBC (Bld) [Ratio] 0 % 0-5 [facility] MCHC Auto (RBC) [Mass/Vol]Or dered By: Omid Perez on 04-08-2023 MCHC (RBC) [Mass/Vol] 32.4 g/dL 32-36 [facility] No Panel InformationOrdered By: Omid Perez on 04-08-2023 Estimated Creatinine Clearance Calc 48.78 ml/min [facility] Estimated GFR (MDRD) Amer 81 mL/min >60 [facility] Comment on above: GFR Calc Estimated GFR (MDRD) Non-Af Amer 67 mL/min >60 [facility] Comment on above: Non- GFR Calc Platelets bldOrdered By: Karthikeyan Perez on 04-08-2023 Platelets (Bld) [#/Vol] 107 10*3/uL 150-450 [facility] Serum or plasma calcium jossie urement (mass/volume)Ordered By: Omid Perez on 04-08-2023 Calcium [Mass/Vol] 8.2 mg/dL 8.5-10.1 [facility] Serum or plasma creatinine m easurement (mass/volume)Ordered By: Omid Perez on 04-08-2023 Creatinine [Mass/Vol] 1.11 mg/dL 0.70-1.30 [facility] Comment on above: The validity of the calculated GFR & GFRAA in patients over 70 years has not been determined. Clinical correlation is essential. Serum or plasma urea nitroge n measurement (mass/volume)Ordered By: Omid Perez on 04-08-2023 Urea nitrogen [Mass/Vol] 20 mg/dL 7-18 [facility] Thin prep Papanicolaou smear with manual screeningOrdered By: Omid Perez on 04-08-2023 Thin prep Papanicolaou smear with manual screening 6 5-15 [facility] No Panel InformationOrdered By: Omid Perez on 04-07-2023 Activated Clotting Time 143 sec 74-137 [facility] INR in Blood by Coagulation assayOrdered By: Dieter Christianson on 04-01-2023 INR Coag (Bld) [Relative time] 1.1 {INR} [facility] Laboratory - CoagulationOrde red By: Dieter Christianson on 04-01-2023 aPTT Coag (Bld) [Time] 43.0 s 24.1-36.2 [facility] PT Coag (PPP) [Time] 14.3 s 11.7-14.9 [facility] Basophil percentageOrdered B y: Dieter Christianson on 03-29-2023 Basophil percentage 2.4 mg/dL 2.5-4.9 [facility] Bilirubin [Mass/Vol] 0.60 mg/dL 0.20-1.00 [facility] Comment on above: For patients on eltr ombopag therapy, use of Dimension [place] TBIL is not recommended. Protein [Mass/Vol] 6.8 g/dL 6.4-8.2 [facility] Direct bilirubinOrdered By: Dieter Christianson on 03-29-2023 Bilirubin.direct [Mass/Vol] 0.17 mg/dL 0.00-0.30 [facility] Laboratory - Chemistry and C hemistry - challengeOrdered By: Dieter Christianson on 03-29-2023 ALP [Catalytic activity/Vol] 64 U/L 45-117 [facility] ALT [Catalytic activity/Vol] 22 U/L 16-61 [facility] Globulin (S) [Mass/Vol] 3.4 g/dL 2.2-4.2 [facility] Magnesium [Mass/Vol] 2.3 mg/dL 1.6-2.6 [facility] Serum or plasma albumin jossie urement (mass/volume)Ordered By: Dieter Christianson on 03-29-2023 Albumin [Mass/Vol] 3.4 g/dL 3.2-5.0 [facility] Thin prep Papanicolaou smear with manual screeningOrdered By: Dieter Christianson on 03-29-2023 Thin prep Papanicolaou smear with manual screening 19 U/L 15-37 [facility] Basophil percentageOrdered B y: Omid Perez on 02-23-2023 Chloride [Moles/Vol] 107 mmol/L 98-107 [facility] Glucose [Mass/Vol] 92 mg/dL 74-106 [facility] Potassium [Moles/Vol] 3.6 mmol/L 3.5-5.1 [facility] Sodium [Moles/Vol] 140 mmol/L 136-145 [facility] Laboratory - Chemistry and C hemistry - challengeOrdered By: Omid Perez on 02-23-2023 CO2 [Moles/Vol] 30.0 mmol/L 21.0-32.0 [facility] Urea nitrogen/Creatinine [Mass ratio] 24.8 mg/mg 10-20 [facility] No Panel InformationOrdered By: Omid Perez on 02-23-2023 Estimated GFR (MDRD) Amer 64 mL/min >60 [facility] Comment on above: GFR Calc Estimated GFR (MDRD) Non-Af Amer 53 mL/min >60 [facility] Comment on above: Non- GFR Calc Serum or plasma calcium jossie urement (mass/volume)Ordered By: Omid Perez on 02-23-2023 Calcium [Mass/Vol] 9.2 mg/dL 8.5-10.1 [facility] Serum or plasma creatinine m easurement (mass/volume)Ordered By: Omid Perez on 02-23-2023 Creatinine [Mass/Vol] 1.37 mg/dL 0.70-1.30 [facility] Comment on above: The validity of the calculated GFR & GFRAA in patients over 70 years has not been determined. Clinical correlation is essential. Serum or plasma urea nitroge n measurement (mass/volume)Ordered By: Omid Perez on 02-23-2023 Urea nitrogen [Mass/Vol] 34 mg/dL 7-18 [facility] Thin prep Papanicolaou smear with manual screeningOrdered By: Omid Perez on 02-23-2023 Thin prep Papanicolaou smear with manual screening 3 5-15 [facility] SURGICAL PATHOLOGYOrdered By : Matt Culp on 01-18-2023 Case Report Surgical Pathology R eport Case: [id number] Authorizing Provider: Lisa Rodirguez MD Collected: 01/15/2023 11:33 AM Ordering Location: Ambulatory Surgery Received: 01/15/2023 08:54 PM Pathologist: Matt Culp MD Specimen: COLON BIOPSY, random [facility] Work Phone: FINAL DIAGNOSIS j5cmuUKmRAFcsVFhBCIw NVxhbn EtMYHzcHLhL8ZrnsytCPckHP3g NQ4hmNkmlIDjmZNqXJRhHsJod6 gup449wQVlq4tcXBNXtexouYz8 xKquX03iq2E9VmtmZ30hyJUmDG P9NTQkKBEnaSQkLGKzPKQ8TBTx nLViQ1kuGXHyRQ9ukwalMEkoWN mvIMMeuTI4LKXgyEAoL4OtBHKs AIrrFXVsokt5TcKeRu4lrCAcsV cyMFxwYXJkXHBsYWluXGZzMjAg SdVxPQ4wFBYdzI9cEWTriF1uj6 u2XUqynuLiGLMIm9tdCLshod92 sxGno5glsKouIyhhTMA2 [facility] Work Phone: Gross Description q9hozYZyKCPezREQAJFv MDRcYW 6gnRhutMc6dVbiYODprhU6sKLq KDgwy8laZSV1l0toygNPCpjxIF VjCFdjQPVqgvauKaF2YZdiOCHw lincMFl9JXytPXJlhLU5NSXmuC SlG2QpNXJeXF4kgcz2PRP3DLfc VDPpOeY3OTDvTgDfWcaeRGa8JR NjodI9Kgg0VULyDXHhdCZeb9B0 AVosyircCTUnpIFdV647HLrzv4 VjdGQgDQpccGFyZCANCntcKlxl gEyov1PqtKRhWFgcPJTyJYFeZJ vwhetqFTj9JJOeZMebuCOnCY0i hZghUvdihKanw2GvoWBrIHurZA NuYJZyWTyxNKFzBQ5KPuXwZWEa PXV1OKIbVuO7DUb3WETKPtGwGp HqTvC8PtbhZwAzLJo4OBq4KOjS IsLuVFF6VmG3PmVrMPU3UTygNA BcXHQgMiBcXGYgQXJpYWwgXFxm tNNeRO8yvPhqpKYigtABSrFCK9 vHTeTPZG2BZ0wjiFFzKU7WIBZm fEWPLKY8DR4hLOFSNlkcuTMtAX FulZvwOQfjhL2yOL9XPUm2olAn QFUwQeEfZcRkFGl0HOFauC0bAq 7ovWAuuK6gRXLkQZ14sQGdhCxf HWFiKDNvciUjJuC4ZT8cMTCoOd FlgKzzd2RpEHTkS1JwW5J8uS4d PXHsYSHbUoR5QXIwLNY6GFEzUl RouX8zDE79XBklfJCapUIhnOM2 DSUarK1bOa8gpKYvvH4ooL7erK cwPPIsa3IjsNFrgl0uYMPzhgKO ClxwYXIgDQpccGFyZFxsdHJwYX LjfRe6IgKiNK7FD8Fry9AtONfb aZbeYZUqo39giLTmOt7iyGFdOO X7SATgOHAolCQzYSNOtLvcvMZu DRh4WFMnVHYokZeqTDO3GD2xXR NaBFUzpNYfFUnsE8vuUJZhGNEg kUCoBQ4XMKXgkmDOZqeANKU6Sc Q2YpIhSvJaYDO9SpkyMH4wcTWx HO2AVNVtnbUjtVYurMHzGO6RIH HuyZQEZAO5HZ8pDOc2XShkTWTw E5WgC9RnakXkcCIcFBKjxfBuh4 ikMZA9FRHlwNMqtHDkUiFsQgls UCA5WSGxRRspCM9MMFSqIJW2JU hwdN52oZEjLC3XAHKcMZohAVPh ODRvfhP8UJXctFYeOZP8VI3pyX vvkXVsuvlppaF5RA1RpV== [facility] Work Phone: Performing Lab f4iqdIQxCEPcoOMtNeCj MDAwXG Vuk1nbSPVauZYpGeNaLxWcDxYl JvmzmGNsWPLbWoOtb7zwh397bV Gzg1ipASLoHoT2sAJnLHZfcJEk A614FSGcXBxwj0bkj8ZpLYBodP Psm6T5UXYBtfxotPl1fLlxR41t x3T4MlcmU2ssECPiNSYlT7IuDU 8aMLPtRqb1DKX7QKM9FWJiOQNv T5SmLX8rDOTcjIIfKDf8h9sjiX ruKQTrMYB6w6kkCKystqQeOA0s fc9gsJf4v6crgdUdFAXpAUHibA JPQLCcA8OxmJgiBj6pyVh1xErr CmxiORB9Fca9WF7jnh46cao6mI chXBLeezrlClE3WCjaKWYmpikr NPm8DZuzCQNyqFS5XMLziPUqU8 XtVRxuIJ2mhwk7YAP8MVqiFRUx AfJ1MTHczTCiPYHvsRhhLXexb4 38JJN5NgKtNF1lS3Iwj6W7hC9w sUZuOWIwpGNyPlCxXGBgel7fmR JcPKqpd6JqWCN9ufR3dMAknSBi SSUvUD71Lqefv2HuFeeot6BpH2 4odSW2GAwfi9xxVB6iBkW1vhMo ONeib6nciQ4pSmS1AYyrSB2zUH 2vGEBrzU8dfbhqQGJrUjLdwzji FLGmxScllvPaKa7lpOwvJRP3HC lmO9jyjS0vAoS7DUosD2cxdG3k MHl7ATlbrBE7JJLoaW0xKG3dbd zyd3kmMFmeBZvtRUUmhbA8vrWz RRGzvIAfP7FogG0dGGZfPI9fvc lni6jqNRW1SYmnMKNsZTJ7SgTc JYZbi9Ejoqx4GcKrc1IvoJXhYC dzW44qb819KRWiodCoS4obnVTq ibhibAWgmgkiWZwfyrR8ZLAhNB BsYWluXGYxXGZzMjJcbGFuZzEw MzNcaGljaFxmMVxkYmNoXGYxXG lcV8rlSxLbXcXbXkPOiXUlhx2s yUqgZLekrEWhmMHcsJP5rI2pLS JjykGzdm9lKVTdtZYVfLN9RTiw tjZuX3elbsvbQJS7OTIzNQY9X9 xpZCBBdmUsIENsZXZlbGFuZCBP BLV5KHV9WJErSTHADRRaXDX7KP L6HYNrZCPocEJiHSFowmdzLPOo XHBsYWluXGYwXGZzMjRccGxhaW 4xLgDsQjUmPtzcNP0fPDCyK3sq gVUcFDGfKZSrD5anSoEnzA9geD xmMVxjZjJcZnMyMlxsdHJjaCBM HYQjqbJ7n2A8XPpmwVNaalizDG egctLmXYmetqllFYRfYPsgL3pt SrDoSPHhbWwhXMukp0TiMIImPH JyPgBcNXtiYKU7h1Q3FUjepJAc enCGAuCXLJ6xnHBuixtyGP2KTl xwYXJ9 [facility] Work Phone: [facility] Work Phone: Flexible sigmoidoscopy study on 01-15-2023 [facility] Patient Name: Leana Camejo Procedure Date: 01/15/2023 11:19 AM Date of : 1940 Admit Type: Outpatient Age: 83 Room: [place] [address] Gender: Male Note Status: Finalized Attending MD: [...] by the physician, the nurse and the broker in charge in the pre-procedure area in the endoscopy [...] entire examined (more content not included)... PROVATION [facility] Radiology Study observation (narrative) [facility] CULTURE ANAEROBEon 9 CULTURE ANAEROBE CULTURE ANAEROBE --> Status: F No growth of anaerobes at 5 days. Normal [facility] Comment on above: Performed By: #### C XFLD, C/CAITLYN #### [address] [address] Basic Metabolic Panelon 10-3 0-2018 Anion gap [Moles/Vol] 7 Normal [facility] Comment on above: Performed By: #### B MP3 #### [address] Calcium [Mass/Vol] 9.0 mg/dL Normal 8.4-10.4 [facility] Comment on above: Performed By: #### B MP3 #### [facility] [address], [place] CO2 [Moles/Vol] 25 mmol/L Normal 22-30 [facility] Comment on above: Performed By: #### B MP3 #### [facility] [address], [place] Glucose [Mass/Vol] 107 mg/dL High 70-100 [facility] Comment on above: Performed By: #### B MP3 #### [facility] [address], [place] Urea nitrogen [Mass/Vol] 25 mg/dL High 7-20 [facility] Comment on above: Performed By: #### B MP3 #### [facility] [address], [place] Creatinine [Mass/Vol] 1.17 mg/dL Normal 0.52-1.25 [facility] Comment on above: Performed By: #### B MP3 #### [facility] [address], [place] GFR/1.73 sq M predicted among blacks MDRD (S/P/Bld) [Vol rate/Area] mL/min/{1.73_m2} Normal >60 [facility] Comment on above: Performed By: #### B MP3 #### [facility] [address], [place] GFR/1.73 sq M predicted among non-blacks MDRD (S/P/Bld) [Vol rate/Area] mL/min/{1.73_m2} Normal >60 [facility] Comment on above: Result Comment: Sour ce- MDRD equation with creatinine calibration to IDMS(NKDEP) eGFR not recommended for drug dose adjustment Performed By: #### B MP3 #### [facility] [address], [place] Potassium [Moles/Vol] 3.8 mmol/L Normal 3.5-5.1 [facility] Comment on above: Performed By: #### B MP3 #### [facility] [address] [place] [address] Sodium [Moles/Vol] 138 mmol/L Normal 135-145 [facility] Comment on above: Performed By: #### B MP3 #### [facility] [address] [place] [address] Chloride [Moles/Vol] 106 mmol/L Normal 98-107 [facility] Comment on above: Performed By: #### B MP3 #### [facility] [address] [place] [address] Anion gap [Moles/Vol] 7 mmol/L [facility] [place] Calcium [Mass/Vol] 9.0 mg/dL 8.4 - 10. 4 mg/dL [facility], [place] Chloride [Moles/Vol] 106 mmol/L 98 - 10 7 mmol/L [facility], [place] CO2 [Moles/Vol] 25 mmol/L 22 - 30 mmol/L [facility], [place] Creatinine [Mass/Vol] 1.17 mg/dL 0.52 - 1.25 mg/dL [place], [place] EGFR IF NonAfrican Cambodian >60.0 >60 mL/min [place], [place] Comment on above: Source- MDRD equatio n with creatinine calibration to IDMS(NKDEP) eGFR not recommended for drug dose adjustment GFR/1.73 sq M predicted among blacks MDRD (S/P/Bld) [Vol rate/Area] mL/min/{1.73_m2} >60 mL/min [facility], [place] Glucose [Mass/Vol] 107 mg/dL High 70 - 100 mg/dL [place], [place] Interpretation and review of laboratory results Abnormal [place], [place] Potassium [Moles/Vol] 3.8 mmol/L 3.5 - 5.1 mmol/L [facility], [place] Sodium [Moles/Vol] 138 mmol/L 135 - 145 mmol/L [place], [place] Urea nitrogen [Mass/Vol] 25 mg/dL High 7 - 20 mg/dL [place], [place] Test Performed by [facility], [address] [place] [address] [place], [place] CT Aspiration Fine Needleon 07-19-2019 CT Aspiration Fine Needle Patient Name: LEANA CAMEJO CT Exam Date/Time 07/19/2019 09:16:[address] Aspiration Ordering Physician MD PEYTON, YARIEL Durán Accession Number [id number] CPT4 Codes 50707 (), 56586 () Reason For Exam ileopsoas abscess Report [...] WILLIAM Transcribed Date and Time: 07/19/2019 9:[address] [facility] [address] GUIDED NEEDLE ASPIRATION OR INJECTIONon 07-19-2019 Patient Name: LEANA CAMEJO ---CT--- Exam Date/Time 07/19/2019 09:16:[address] Aspiration Ordering Physician MD BLAS TYLER M Accession Number [id number] CPT4 Codes 00475 (), 85616 () Reason For Exam ileopsoas abscess Report [...] WILLIAM Transcribed Date and Time: 07/19/2019 9:25 [place], [place], [facility] Incoming Radiology Results From [facility] - 07/19/2019 9:31 AM EDT Patient Name: LEANA CAMEJO ---CT--- Exam Date/Time 07/19/2019 09:16:[address] Aspiration Ordering Physician MD BLAS TYLER M Accession Number [id number] CPT4 Codes 99470 (), 97383 () Reason For Exam ileopsoas abscess Report [...] WILLIAM Transcribed Date and Time: 07/19/2019 9:25 [place] CULTURE AND STAIN - FLUIDon 07-19-2019 CULTURE AND STAIN - FLUID CULTURE & STAIN - FLUID --> Status: F No growth at 3 days. STAIN GRAM --> Status: F Many polymorphonuclear cells/lpf. No organisms seen. No organisms seen. Normal [facility] Comment on above: Performed By: #### C XFLÁZARO, C/CAITLYN #### [facility] [address] [place] [address] .GFRon 06-16-2019 GFR 69 ml/min/1.73sqm [facility] Comment on above: Result Comment: GFR Population [...] Performed By: #### C RE, GFR #### [address] [address] GFR Non- 57 ml/min/1.73sqm [facility] Comment on above: Result Comment: GFR Population [...] Performed By: #### C RE, GFR #### [address] [address] CREon 06-16-2019 Creatinine [Mass/Vol] 1.23 mg/dL Normal 0.70-1.30 [facility] ([place]) Comment on above: Performed By: #### C RE, GFR #### [address] [address] JAIMEon 01-14-2018 CNOV Office Visit (AGCARDWST) LEANA CAMEJO ([id number]) 1940 MDate Time Provider Department01/14/18 10:30 AM MOODY MONTES During your visit today, we [...] - N/ABeta adrienne for ASHD with prior IL or prior LVEFANDlt;40 (NQF 0070) - N/ABeta [...] tab Take 1 tablet by mouth once daily.gp-1-oit-epa-D3-B12- FA-B-6-phy (ANIMI-3 WITH VITAMIN D) 500-1,908-016ua-jknu-mcg cap Take 1,000 Units by mouth twice daily.Fish,Saf,Flx,Brg Oils-O3,6,9#2 [phone] mg cap Take 6 capsules by mouthonce daily.Flaxseed Oil 1,000 mg ORAL Cap Take by mouth.gabapentin (NEURONTIN) 300 mg capsule Take 1 capsule by mouth twice daily.Ipratropium [place] (ATROVENT) 0.03 % nasal spray Use 2 [...] labs were reviewed. Renal function is stableElectronically Signed:Moody Montes MDApril 2017 10:43 [facility]: Diogenes Preciado MD 01/14/2018 10:44 AM SignedDecrease amlodipine to 5 mg daily.Start carvedilol 6.25 mg twice a dayCall next week with list of your vital signsIf increased HR continues, we will do a heart monitorReferring Provider: SELF [[id number]]Allergies As of Date: 01/14/2018 Noted Allergy ReactionCLONIDINE 07/21/2005CRESTOR (ROSUVASTATIN CALCIUM) 07/21/2005LIPITOR (ATORVASTATIN CALCIUM) 07/21/2005LISINOPRIL 02/10/2017 2 - RashSTATINS (JGXDWTF-BBE-GPO REDUCTAS*07/15/2006Date Reviewed: 09/09/2017Reviewed by: Benita Garay - [...] Take 1 tablet by mouth once d* ZULLD-4-KIV-SVP-Q8-U38-FA- B6-* Take 1,000 Units by mouth twi* [...] MOODY MONTES MD on 01/14/18 [facility] PROGRESSon 01-14-2018 PROGRESS HNO ID: [id number] thor: Moody Yuan: (none)Author Type: PhysicianType: Progress NotesFiled: 01/14/2018 5:45 PMNote Text:PERTINENT CARDIAC HISTORYHTNHL - statin intolerantCHF - diastolicVPDsCRFRSV infectionAllergy to lisinopril - rashADHERENCE TO GUIDELINESACE-I or ARB for HF with prior LVEF<40 (NQF 0081) - N/AASA or Plavix for ASHD (NQF 0067) - N/ABeta adrienne for ASHD with prior IL or prior LVEF<40 (NQF 0070) - N/ABeta [...] treatment plan.DIAGNOSIS FOR VISIT:HypertensionEdemaHIS TORY OF PRESENT ILLNESSLeana Camejo returns to the office today for [...] tab Take 1 tablet by mouth once daily.fp-8-jmq-epa-D3-B12- FA-B-6-phy (ANIMI-3 WITH VITAMIN D) 500-1,092-492rf-jode-mcg cap Take 1,000 Units by mouth twice daily.Fish,Saf,Flx,Brg Oils-O3,6,9#2 [phone] mg cap Take 6 capsules bymouth once daily.Flaxseed Oil 1,000 mg ORAL Cap Take by mouth.gabapentin (NEURONTIN) 300 mg capsule Take 1 capsule by mouth twice daily.Ipratropium [place] (ATROVENT) 0.03 % nasal spray Use 2 [...] function is stableElectronically Signed:Leigha Duckworth 2017 10:43 [facility]: Gavin Hope MD [facility] Office Visit (AGCARDWST) LEANA CAMEJO ([id number]) 1940 [facility] Time Provider Eplfqrfvow52/21/17 8:30 AM MOODY MONTESARDWSYael During your visit today, we recorded the [...] - N/ABeta adrienne for ASHD with prior IL or prior LVEFANDlt;40 (NQF 0070) - N/ABeta [...] diet - lifestyle recommendation formCLINICAL IMPRESSION/PLAN:Leana Camejo is doing well. He has [...] with treatment plan.This note was generated using [employer] voice recognition system, and there may besome [...] tab Take 1 tablet by mouth once daily.cy-2-lae-epa-D3-B12- FA-B-6-phy (ANIMI-3 WITH VITAMIN D) 500-1,773-425tn-fgxv-mcg cap Take 1,000 Units by mouth twice daily.Fish,Saf,Flx,Brg Oils-O3,6,9#2 [id number] mg cap Take 6 capsules by mouthonce daily.Flaxseed Oil 1,000 mg ORAL Cap Take by mouth.Ipratropium [place] (ATROVENT) 0.03 % nasal spray Use 2 [...] UPPER EYELID 2012- COLONOSCOP W/ OR W/O [facility] [[email or web address]] SPEC 03/18/01 anemia- COLONOSCOP W/ OR W/O [facility] [[email or web address]] SPEC 05/13/10 repeat 10 yrs- EGD W/O [...] fraction was 60%.Electronically Signed:Rach Duckworth 2016 8:54 [facility]:Diogenes Preciado MD 09/09/2017 8:54 AM SignedLIFESTYLE CHANGEA [...] programs in your area.Referring Provider: GAVIN HOPE [[id number]]Allergies As of Date: 09/09/2017 Noted Allergy ReactionCLONIDINE 07/21/2005CRESTOR (ROSUVASTATIN CALCIUM) 07/21/2005LIPITOR (ATORVASTATIN CALCIUM) 07/21/2005LISINOPRIL 02/10/2017 2 - RashSTATINS (IOQSIQM-SPL-QAM REDUCTAS*07/15/2006Date Reviewed: 09/09/2017Reviewed by: Benita Garay - [...] Take 1 tablet by mouth once d* GRIOI-2-GOY-HYD-G1-C56-FA- B6-* Take 1,000 Units by mouth twi* [...] the following areas and commit to making director long term care changes. EAT A WHOLE FOOD, PLANT BASED [...] your area.Follow-up and Disposition History RecordedEncounter Number: [id number] Status:Closed by MOODY MONTES MD on 09/10/17 [facility] PROGRESSon 09-09-2017 PROGRESS HNO ID: [id number] thor: Moody Yaun: (none)Author Type: PhysicianType: Progress NotesFiled: 09/10/2017 6:07 PMNote Text:PERTINENT CARDIAC HISTORYHTNHL - statin intolerantCHF - diastolicVPDsCRFRSV infectionAllergy to lisinopril - rashADHERENCE TO GUIDELINESACE-I or ARB for HF with prior LVEF<40 (NQF 0081) - N/AASA or Plavix for ASHD (NQF 0067) - N/ABeta adrienne for ASHD with prior [place] or prior LVEF<40 (NQF 0070) - N/ABeta [...] with treatment plan.This note was generated using [employer] voice recognition system, and theremay be some [...] tab Take 1 tablet by mouth once daily.cu-1-evd-epa-D3-B12- FA-B-6-phy (ANIMI-3 WITH VITAMIN D) 500-1,717-893ee-quqz-mcg cap Take 1,000 Units by mouth twice daily.Fish,Saf,Flx,Brg Oils-O3,6,9#2 [id number] mg cap Take 6 capsules bymouth once daily.Flaxseed Oil 1,000 mg ORAL Cap Take by mouth.Ipratropium [place] (ATROVENT) 0.03 % nasal spray Use 2 [...] UPPER EYELID 2012- COLONOSCOP W/ OR W/O [facility] [email or web address]] SPEC 03/18/01 anemia- COLONOSCOP W/ OR W/O [facility] SPEC 05/13/10 repeat 10 yrs- EGD W/O [...] no ischemia. Ejection fraction was 60%.Electronically Signed:ARIADNA Duckworthecemborestes 2016 8:54 [facility]:Gavin Hope MD [facility] OBSOLETEon 07-22-2017 OBSOLETE Refill (AGCARDWST) LEANA CAMEJO ([id number]) 1940 MDate Time Provider Ipaptkkavx31/2/17 MOODY MONTES During your visit today, we [...] daily. KEVIN: No Please review and advise.Frank Loretta Arellanomelissa has been identified by name and date [...] (ATORVASTATIN CALCIUM) 07/21/2005LISINOPRIL 02/10/2017 2 - RashSTATINS ([id number] REDUCTAS*07/15/2006Date Reviewed: 06/03/2017Reviewed by: Benita Garay - Fully AssessedReason for Visit: Refill Request [94]Visit Diagnosis:Chronic diastolic CHF (congestive heart failure) ([facility]) [I50.32]Order(s):furosemid e (LASIX) 40 mg tabletTake 1 [...] Take 1 tablet by mouth once d* YKVPI-2-SRL-TCX-B2-I84-FA- B6-* Take 1,000 Units by mouth twi* [...] file. Status:Closed by FRANK ARELLANO on 07/22/17 [facility] Vital Signs Date Time Vital Sign Value Performing Clinician Facility 05-21-2025 04:00-0400 Diastolic blood pressure 81 mm[Hg] Dr. Dallas Reed MD Work Phone: 0(425)024-973319 [place] [address] 05-21-2025 04:00-0400 Heart rate 82 /min Dr. Dallas Reed MD Work Phone: 2(344)797-470619 [place] [address] 05-21-2025 04:00-0400 Respiratory rate 18 /min Dr. Dallas Reed MD Work Phone: 9(396)410-393919 [place] [address] 05-21-2025 04:00-0400 SaO2% (BldA) [Mass fraction] 92 % Dr. Dallas Reed MD Work Phone: 6(183)803-747719 [place] [address] 05-21-2025 04:00-0400 Systolic blood pressure 128 mm[Hg] Dr. Dallas Reed MD Work Phone: 1(516)327-667619 [place] [address] 05-21-2025 03:38-0400 Body temperature 98 [degF] Dr. Dallas Reed MD Work Phone: 7(723)874-020119 [place] [address] 05-21-2025 01:21-0400 Body height 172.[address] Dallas Reed MD Work Phone: 6(899)569-483919 [place] [address] 05-21-2025 01:21-0400 Body mass index (BMI) [Ratio] 21.4 kg/m2 Dr. Dallas Reed MD Work Phone: 8(905)495-875919 [place] [address] 05-21-2025 01:21-0400 Body weight 63.[address] Dallas Reed MD Work Phone: 3(900)522-629219 [place] [address] 05-18-2025 09:41-0400 Body mass index (BMI) [Ratio] 21.08 kg/m2 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 Work Phone: [facility] 05-18-2025 09:41-0400 Body weight 62.9 kg Darya Saira 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 Work Phone: [facility] 05-18-2025 09:41-0400 Diastolic blood pressure 70 mm[Hg] Darya Saira 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 Work Phone: [facility] 05-18-2025 09:41-0400 Heart rate 56 /min 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 Work Phone: [facility] 05-18-2025 09:41-0400 Respiratory rate 14 /min 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 Work Phone: [facility] 05-18-2025 09:41-0400 SaO2% (BldA) [Mass fraction] 94 % 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 Work Phone: [facility] 05-18-2025 09:41-0400 Systolic blood pressure 112 mm[Hg] [facility] 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 Work Phone: [facility] 05-10-2025 08:07-0400 Body height 172.[address] Dallas Reed MD Work Phone: [facility] 05-10-2025 08:07-0400 Body mass index (BMI) [Ratio] 21.6 kg/m2 Dr. Dallas Reed MD Work Phone: [facility] 05-10-2025 08:07-0400 Body weight 64.[address] Dallas Reed MD Work Phone: [facility] 05-10-2025 08:07-0400 Diastolic blood pressure 55 mm[Hg] Dr. Dallas Reed MD Work Phone: [facility] 05-10-2025 08:07-0400 Heart rate 66 /min Dr. Dallas Reed MD Work Phone: 0(850)262-497114 [place] [address] 05-10-2025 08:07-0400 Respiratory rate 18 /min Dr. Dallas Reed MD Work Phone: 5(111)322-714719 [place] [address] 05-10-2025 08:07-0400 SaO2% (BldA) [Mass fraction] 98 % Dr. Dallas Reed MD Work Phone: 6(986)944-532319 [place] [address] 05-10-2025 08:07-0400 Systolic blood pressure 95 mm[Hg] Dr. Dallas Reed MD Work Phone: 0(214)080-636919 [place] [address] 04-18-2025 16:27-0400 Body temperature 98.2 [degF] Dr. Dallas Reed MD Work Phone: 3(403)533-508119 [place] [address] 04-18-2025 16:27-0400 Body weight 65.[address] Dlalas Reed MD Work Phone: 3(756)478-043019 [place] [address] 04-18-2025 16:27-0400 Diastolic blood pressure 79 mm[Hg] Dr. Dallas Reed MD Work Phone: 5(689)677-163219 [place] [address] 04-18-2025 16:27-0400 Heart rate 74 /min Dr. Dallas Reed MD Work Phone: 8(389)356-040019 [place] [address] 04-18-2025 16:27-0400 Respiratory rate 16 /min Dr. Dallas Reed MD Work Phone: 6(254)360-080719 [place] [address] 04-18-2025 16:27-0400 SaO2% (BldA) [Mass fraction] 97 % Dr. Dallas Reed MD Work Phone: 9(544)471-272514 [place] [address] 04-18-2025 16:27-0400 Systolic blood pressure 158 mm[Hg] Dr. Dallas Reed MD Work Phone: 8(408)557-997419 [place] [address] 03-16-2025 19:15-0400 Diastolic blood pressure 69 mm[Hg] Ana Bobo MD Work Phone: [employer] Comment on above: per patient SBP in 120s is normal for [facility] 03-16-2025 19:15-0400 Heart rate 71 /min Ana Bobo MD Work Phone: [employer] [facility] 03-16-2025 19:15-0400 Respiratory rate 16 /min Ana Bobo MD Work Phone: [facility] [facility] 03-16-2025 19:15-0400 SaO2% (BldA) [Mass fraction] 94 % Ana Bobo MD Work Phone: [facility] [facility] 03-16-2025 19:15-0400 Systolic blood pressure 124 mm[Hg] Ana Bobo MD Work Phone: [employer] Comment on above: per patient SBP in 120s is normal for [facility] 03-16-2025 17:07-0400 Body temperature 97.3 [degF] Ana Bobo MD Work Phone: [facility] [facility] 03-16-2025 10:04-0400 Body height 172.7 cm Ana Bobo MD Work Phone: [facility] 03-16-2025 10:04-0400 Body mass index (BMI) [Ratio] 22.66 kg/m2 Ana Bobo MD Work Phone: [facility] 03-16-2025 10:04-0400 Body weight 67.59 kg Ana Bobo MD Work Phone: [facility] 03-12-2025 08:39-0400 Body mass index (BMI) [Ratio] 21.69 kg/m2 Darya RichardsonSaira 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 Work Phone: [facility] 03-12-2025 08:39-0400 Body weight 64.7 kg Darya Saira 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 Work Phone: [facility] 03-12-2025 08:39-0400 Diastolic blood pressure 68 mm[Hg] Darya RichardsonSaira 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 Work Phone: [facility] 03-12-2025 08:39-0400 Heart rate 70 /min Darya RichardsonSaira 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 Work Phone: [facility] 03-12-2025 08:39-0400 Respiratory rate 14 /min Darya Borden 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 Work Phone: [facility] 03-12-2025 08:39-0400 SaO2% (BldA) [Mass fraction] 98 % Darya Borden 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 Work Phone: [facility] 03-12-2025 08:39-0400 Systolic blood pressure 112 mm[Hg] Darya Borden 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 Work Phone: [facility] 02-27-2025 14:48-0400 Body temperature 97.5 [degF] Dr. Dallas Reed MD Work Phone: [facility] 02-27-2025 14:48-0400 Body weight 64.[address] Dallas Reed MD Work Phone: 3(507)208-308814 [place] [address] 02-27-2025 14:48-0400 Diastolic blood pressure 72 mm[Hg] Dr. Dallas Reed MD Work Phone: 7(969)310-486314 [place] [address] 02-27-2025 14:48-0400 Heart rate 60 /min Dr. Dallas Reed MD Work Phone: [facility] 02-27-2025 14:48-0400 Respiratory rate 16 /min Dr. Dallas Reed MD Work Phone: 0(919)405-026714 [place] [address] 02-27-2025 14:48-0400 SaO2% (BldA) [Mass fraction] 100 % Dr. Dallas Reed MD Work Phone: 2(617)944-624314 [place] [address] 02-27-2025 14:48-0400 Systolic blood pressure 123 mm[Hg] Dr. Dallas Reed MD Work Phone: [facility] 02-14-2025 20:53-0400 Body temperature 97.7 [degF] Dr. Dallas Reed MD Work Phone: [facility] 02-14-2025 20:53-0400 Diastolic blood pressure 76 mm[Hg] Dr. Dallas Reed MD Work Phone: 1(324)243-817019 [place] [address] 02-14-2025 20:53-0400 Heart rate 73 /min Dr. Dallas Reed MD Work Phone: 3(034)521-389419 [place] [address] 02-14-2025 20:53-0400 Respiratory rate 17 /min Dr. Dallas Reed MD Work Phone: 1(900)982-941719 [place] [address] 02-14-2025 20:53-0400 SaO2% (BldA) [Mass fraction] 94 % Dr. Dallas Reed MD Work Phone: 6(440)373-662719 [place] [address] 02-14-2025 20:53-0400 Systolic blood pressure 143 mm[Hg] Dr. Dallas Reed MD Work Phone: 6(489)423-959719 [place] [address] 02-14-2025 09:53-0400 Body height 172.[address] Dallas Reed MD Work Phone: 8(872)322-907719 [place] [address] 02-14-2025 09:53-0400 Body weight 67.[address] Dallas Reed MD Work Phone: 6(784)003-512419 [place] [address] 02-13-2025 07:14-0400 Body mass index (BMI) [Ratio] 22.5 kg/m2 Dr. Dallas Reed MD Work Phone: 8(380)712-178219 [place] [address] 01-12-2025 13:36-0400 Body temperature 97.4 [degF] Dr. Dallas Reed MD Work Phone: 3(541)253-402519 [place] [address] 01-12-2025 13:36-0400 Diastolic blood pressure 78 mm[Hg] Dr. Dallas Reed MD Work Phone: 3(575)993-619919 [place] [address] 01-12-2025 13:36-0400 Heart rate 61 /min Dr. Dallas Reed MD Work Phone: 5(451)164-523919 [place] [address] 01-12-2025 13:36-0400 Respiratory rate 16 /min Dr. Dallas Reed MD Work Phone: 6(006)894-109619 [place] [address] 01-12-2025 13:36-0400 SaO2% (BldA) [Mass fraction] 96 % Dr. Dallas Reed MD Work Phone: 9(584)395-543319 [place] [address] 01-12-2025 13:36-0400 Systolic blood pressure 142 mm[Hg] Dr. Dallas Reed MD Work Phone: 6(709)005-118419 [place] [address] 01-12-2025 10:30-0400 Body height 172.[address] Dallas Reed MD Work Phone: 7(619)863-312519 [place] [address] 01-12-2025 10:30-0400 Body mass index (BMI) [Ratio] 22.4 kg/m2 Dr. Dallas Reed MD Work Phone: 5(801)344-433919 [place] [address] 01-12-2025 10:30-0400 Body weight 67.[address] Dallas Reed MD Work Phone: 0(264)946-619019 [place] [address] 12-25-2024 15:58-0400 Body temperature 98 [degF] Dr. Dallas Reed MD Work Phone: 8(051)888-814419 [place] [address] 12-25-2024 15:58-0400 Body weight 67.[address] Dallas Reed MD Work Phone: 2(431)132-760019 [place] [address] 12-25-2024 15:58-0400 Diastolic blood pressure 83 mm[Hg] Dr. Dallas Reed MD Work Phone: 9(766)068-274019 [place] [address] 12-25-2024 15:58-0400 Heart rate 68 /min Dr. Dallas Reed MD Work Phone: 7(776)386-730019 [place] [address] 12-25-2024 15:58-0400 Respiratory rate 16 /min Dr. Dallas Reed MD Work Phone: 3(403)552-274119 [place] [address] 12-25-2024 15:58-0400 SaO2% (BldA) [Mass fraction] 97 % Dr. Dallas Reed MD Work Phone: 2(318)819-576019 [place] [address] 12-25-2024 15:58-0400 Systolic blood pressure 160 mm[Hg] Dr. Dallas Reed MD Work Phone: 5(732)117-359119 [place] [address] 12-19-2024 09:00-0400 Diastolic blood pressure 65 mm[Hg] Ramon Yvonne PT Work Phone: [facility] Comment on above: Before [employer] 12-19-2024 09:00-0400 Heart rate 67 /min Ramon Yvonne PT Work Phone: [facility] Comment on above: Before [employer]. 12-19-2024 09:00-0400 Systolic blood pressure 138 mm[Hg] Ramon Yvonne PT Work Phone: [facility] Comment on above: Before [employer] 12-15-2024 09:00-0400 Diastolic blood pressure 67 mm[Hg] Ramon Yvonne PT Work Phone: [facility] Comment on above: Before [employer] 12-15-2024 09:00-0400 Heart rate 71 /min Ramon Yvonne PT Work Phone: [facility] Comment on above: Before [employer] 12-15-2024 09:00-0400 Systolic blood pressure 124 mm[Hg] Ramon Yvonne PT Work Phone: [facility] Comment on above: Before [employer] 12-12-2024 09:00-0400 Diastolic blood pressure 85 mm[Hg] Ramon Yvonne PT Work Phone: [facility] Comment on above: BP before [employer] 12-12-2024 09:00-0400 Heart rate 73 /min Ramon Yvonne PT Work Phone: [facility] 12-12-2024 09:00-0400 Systolic blood pressure 150 mm[Hg] Ramon Yvonne PT Work Phone: [facility] Comment on above: BP before [employer] 12-08-2024 11:25-0400 Body height 172.7 cm Dallas Reed MD Work Phone: [facility] 12-08-2024 11:25-0400 Body mass index (BMI) [Ratio] 22.46 kg/m2 Dallas Reed MD Work Phone: [facility] 12-08-2024 11:25-0400 Body temperature 97.9 [degF] Dallas Reed MD Work Phone: [facility] 12-08-2024 11:25-0400 Body weight 67 kg Dallas Reed MD Work Phone: [facility] 12-08-2024 11:25-0400 Diastolic blood pressure 60 mm[Hg] Dallas Reed MD Work Phone: [facility] 12-08-2024 11:25-0400 Heart rate 71 /min Dallas Reed MD Work Phone: [facility] 12-08-2024 11:25-0400 Respiratory rate 12 /min Dallas Reed MD Work Phone: [facility] 12-08-2024 11:25-0400 SaO2% (BldA) [Mass fraction] 97 % Dallas Reed MD Work Phone: [facility] 12-08-2024 11:25-0400 Systolic blood pressure 110 mm[Hg] Ramon Lee PT Work Phone: [facility] Comment on above: Prior to [employer] 12-08-2024 09:00-0400 Diastolic blood pressure 62 mm[Hg] Ramon Lee PT Work Phone: [facility] Comment on above: Prior to [employer] 12-08-2024 09:00-0400 Heart rate 66 /min Ramon Lee PT Work Phone: [facility] Comment on above: Prior to [employer] 12-06-2024 09:00-0400 Diastolic blood pressure 77 mm[Hg] Ramon Lee PT Work Phone: [facility] Comment on above: Prior to [employer] 12-06-2024 09:00-0400 Heart rate 60 /min Ramon Lee PT Work Phone: [facility] 12-06-2024 09:00-0400 Systolic blood pressure 148 mm[Hg] Ramon Lee PT Work Phone: [facility] Comment on above: Prior to [employer] 11-28-2024 20:00-0400 Diastolic blood pressure 79 mm[Hg] Dr. Dallas Reed MD Work Phone: 7(144)918-287114 [place] [address] 11-28-2024 20:00-0400 Heart rate 76 /min Dr. Dallas Reed MD Work Phone: 4(054)093-842219 [place] [address] 11-28-2024 20:00-0400 Respiratory rate 18 /min Dr. Dallas Reed MD Work Phone: 8(685)081-159519 [place] [address] 11-28-2024 20:00-0400 SaO2% (BldA) [Mass fraction] 93 % Dr. Dallas Reed MD Work Phone: 7(908)955-327319 [place] [address] 11-28-2024 20:00-0400 Systolic blood pressure 143 mm[Hg] Dr. Dallas Reed MD Work Phone: 0(946)836-525319 [place] [address] 11-28-2024 19:31-0400 Body temperature 98.3 [degF] Dr. Dallas Reed MD Work Phone: 4(963)176-271919 [place] [address] 11-28-2024 17:53-0400 Body height 172.[address] Dallas Reed MD Work Phone: 3(816)663-776619 [place] [address] 11-28-2024 17:53-0400 Body mass index (BMI) [Ratio] 23 kg/m2 Dr. Dallas Reed MD Work Phone: 4(439)294-978314 [place] [address] 11-28-2024 17:53-0400 Body weight 68.[address] Dallas Reed MD Work Phone: 8(479)914-454319 [place] [address] 11-27-2024 10:51-0400 Body mass index (BMI) [Ratio] 22.59 kg/m2 Darya Borden APRN.SPA ATTENDANT Work Phone: 2(047)679-586561 [place] [address] 11-27-2024 10:51-0400 Body temperature 97.7 [degF] Darya Borden APRN.SPA ATTENDANT Work Phone: 3(713)042-628261 [place] [address] 11-27-2024 10:51-0400 Body weight 67.6 kg Darya Borden 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 Work Phone: [facility] 11-27-2024 10:51-0400 Diastolic blood pressure 70 mm[Hg] Darya RichardsonSaira 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 Work Phone: [facility] 11-27-2024 10:51-0400 Heart rate 70 /min Darya RosalesSaira 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 Work Phone: [facility] 11-27-2024 10:51-0400 Respiratory rate 14 /min Daryagilda RichradsonSaira 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 Work Phone: [facility] 11-27-2024 10:51-0400 SaO2% (BldA) [Mass fraction] 98 % Darya RosalesSaira 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 Work Phone: [facility] 11-27-2024 10:51-0400 Systolic blood pressure 122 mm[Hg] Darya RosalesSaira 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 Work Phone: [facility] 11-24-2024 07:00-0500 Diastolic blood pressure 74 mm[Hg] Ramon Lee PT Work Phone: [facility] 11-24-2024 07:00-0500 Heart rate 90 /min Ramon Lee PT Work Phone: [facility] 11-24-2024 07:00-0500 Systolic blood pressure 144 mm[Hg] Ramon Lee PT Work Phone: [facility] 11-09-2024 14:09-0500 Diastolic blood pressure 63 mm[Hg] Dallas Reed MD Work Phone: [facility] 11-09-2024 14:09-0500 Heart rate 66 /min Dallas Reed MD Work Phone: [facility] 11-09-2024 14:09-0500 Systolic blood pressure 120 mm[Hg] Dallas Reed MD Work Phone: [facility] 11-09-2024 14:00-0500 Body mass index (BMI) [Ratio] 23.02 kg/m2 Dallas Reed MD Work Phone: [facility] 11-09-2024 14:00-0500 Body temperature 98.71 [degF] Dallas Reed MD Work Phone: [facility] 11-09-2024 14:00-0500 Body weight 68.9 kg Dallas Reed MD Work Phone: [facility] 11-07-2024 11:00-0500 Body mass index (BMI) [Ratio] 23.05 kg/m2 Elbert Hawk 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 Work Phone: [facility] 11-07-2024 11:00-0500 Body temperature 97.81 [degF] Elbert Hawk 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 Work Phone: [facility] 11-07-2024 11:00-0500 Body weight 69 kg Elbert Hawk 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 Work Phone: [facility] 11-07-2024 11:00-0500 Diastolic blood pressure 81 mm[Hg] Elbert Hawk 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 Work Phone: [facility] 11-07-2024 11:00-0500 Heart rate 57 /min Elbert Hawk 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 Work Phone: [facility] 11-07-2024 11:00-0500 Respiratory rate 18 /min Elbert Hawk 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 Work Phone: [facility] 11-07-2024 11:00-0500 SaO2% (BldA) [Mass fraction] 100 % Elbert Hawk 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 Work Phone: [facility] 11-07-2024 11:00-0500 Systolic blood pressure 150 mm[Hg] Elbert Hawk 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 Work Phone: [facility] 09-07-2024 09:53-0500 Body height 173 cm Darya Borden 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 Work Phone: [facility] 09-07-2024 09:53-0500 Body mass index (BMI) [Ratio] 23.19 kg/m2 Darya Saira 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 Work Phone: [facility] 09-07-2024 09:53-0500 Body weight 69.4 kg Darya Borden 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 Work Phone: [facility] 09-07-2024 09:53-0500 Diastolic blood pressure 84 mm[Hg] Darya Borden 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 Work Phone: [facility] 09-07-2024 09:53-0500 Heart rate 68 /min Darya Saira 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 Work Phone: [facility] 09-07-2024 09:53-0500 Respiratory rate 14 /min Darya Saira 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 Work Phone: [facility] 09-07-2024 09:53-0500 SaO2% (BldA) [Mass fraction] 98 % Darya Saira 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 Work Phone: [facility] 09-07-2024 09:53-0500 Systolic blood pressure 122 mm[Hg] Darya Saira 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 Work Phone: [facility] 08-31-2024 16:16-0500 Body temperature 98.4 [degF] Dr. Dallas Reed MD Work Phone: [facility] 08-31-2024 16:16-0500 Diastolic blood pressure 90 mm[Hg] Dr. Dallas Reed MD Work Phone: [facility] 08-31-2024 16:16-0500 Heart rate 70 /min Dr. Dallas Reed MD Work Phone: [facility] 08-31-2024 16:16-0500 Respiratory rate 16 /min Dr. Dallas Reed MD Work Phone: [facility] 08-31-2024 16:16-0500 SaO2% (BldA) [Mass fraction] 97 % Dr. Dallas Reed MD Work Phone: [facility] 08-31-2024 16:16-0500 Systolic blood pressure 175 mm[Hg] Dr. Dallas Reed MD Work Phone: [facility] 08-31-2024 06:39-0500 Body mass index (BMI) [Ratio] 23.1 kg/m2 Dr. Dallas Reed MD Work Phone: [facility] 08-31-2024 06:39-0500 Body weight 69.[address] Dallas Reed MD Work Phone: [facility] 07-17-2024 12:41-0400 Body mass index (BMI) [Ratio] 23.87 kg/m2 Dallas Reed MD Work Phone: [facility] 07-17-2024 12:41-0400 Body temperature 98.1 [degF] Dallas Reed MD Work Phone: [facility] 07-17-2024 12:41-0400 Body weight 71.2 kg Dallas Reed MD Work Phone: [facility] 07-17-2024 12:41-0400 Diastolic blood pressure 62 mm[Hg] Dallas Reed MD Work Phone: [facility] 07-17-2024 12:41-0400 Heart rate 64 /min Dallas Reed MD Work Phone: [facility] 07-17-2024 12:41-0400 Respiratory rate 12 /min Dallas Reed MD Work Phone: [facility] 07-17-2024 12:41-0400 Systolic blood pressure 110 mm[Hg] Dallas Reed MD Work Phone: [facility] 06-07-2024 09:00-0400 Diastolic blood pressure 62 mm[Hg] Dallas Reed MD Work Phone: [facility] 06-07-2024 09:00-0400 Systolic blood pressure 124 mm[Hg] Dallas Reed MD Work Phone: [facility] 06-07-2024 08:29-0400 Body mass index (BMI) [Ratio] 24.17 kg/m2 Dallas Reed MD Work Phone: [facility] 06-07-2024 08:29-0400 Body temperature 98.49 [degF] Dallas Reed MD Work Phone: [facility] 06-07-2024 08:29-0400 Body weight 72.1 kg Dallas Reed MD Work Phone: [facility] 06-07-2024 08:29-0400 Heart rate 64 /min Dallas Reed MD Work Phone: [facility] 06-07-2024 08:29-0400 Respiratory rate 12 /min Dallas Reed MD Work Phone: [facility] 05-23-2024 15:20-0400 Diastolic blood pressure 90 mm[Hg] Adrian Bogner PA-C Work Phone: [facility] Comment on above: fab bp average 05-23-2024 15:20-0400 Systolic blood pressure 190 mm[Hg] Adrian Bogner PA-C Work Phone: [facility] Comment on above: fab bp average 05-23-2024 14:01-0400 Body height 172.7 cm Adrian Bogner PA-C Work Phone: [facility] 05-23-2024 14:01-0400 Body mass index (BMI) [Ratio] 23.72 kg/m2 Adrian Bogner PA-C Work Phone: [facility] 05-23-2024 14:01-0400 Body weight 70.76 kg Adrian Bogner PA-C Work Phone: [facility] 05-23-2024 14:01-0400 Heart rate 68 /min Adrian Bogner PA-C Work Phone: [facility] 05-23-2024 14:01-0400 Respiratory rate 12 /min Adrian Bogner PA-C Work Phone: [facility] 05-23-2024 14:01-0400 SaO2% (BldA) [Mass fraction] 98 % Adrian Tangner PA-C Work Phone: [facility] 03-11-2024 11:13-0400 Body mass index (BMI) [Ratio] 25.01 kg/m2 Prema Cyndie 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 Work Phone: [facility] 03-11-2024 11:13-0400 Body temperature 97 [degF] Prema Keene 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 Work Phone: [facility] 03-11-2024 11:13-0400 Body weight 74.6 kg Prema Cyndie 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 Work Phone: [facility] 03-11-2024 11:13-0400 Diastolic blood pressure 78 mm[Hg] Prema Keene 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 Work Phone: [facility] 03-11-2024 11:13-0400 Heart rate 67 /min Prema Keene 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 Work Phone: [facility] 03-11-2024 11:13-0400 Respiratory rate 18 /min Prema Cyndie 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 Work Phone: [facility] 03-11-2024 11:13-0400 SaO2% (BldA) [Mass fraction] 97 % Prema Cyndie 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 Work Phone: [facility] 03-11-2024 11:13-0400 Systolic blood pressure 152 mm[Hg] Prema Cyndie 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 Work Phone: [facility] 02-09-2024 16:15-0400 Body mass index (BMI) [Ratio] 25.41 kg/m2 Ayla Worthingtony PA-C Work Phone: [facility] 02-09-2024 16:15-0400 Body temperature 97.7 [degF] Ayla Athy PA-C Work Phone: [facility] 02-09-2024 16:15-0400 Body weight 75.8 kg Ayla Athy PA-C Work Phone: [facility] 02-09-2024 16:15-0400 Diastolic blood pressure 80 mm[Hg] Alya Athy PA-C Work Phone: [facility] 02-09-2024 16:15-0400 Heart rate 58 /min Ayla Athy PA-C Work Phone: [facility] 02-09-2024 16:15-0400 Respiratory rate 16 /min Ayla Athy PA-C Work Phone: [facility] 02-09-2024 16:15-0400 SaO2% (BldA) [Mass fraction] 95 % Ayla Athy PA-C Work Phone: [facility] 02-09-2024 16:15-0400 Systolic blood pressure 124 mm[Hg] Ayla Athy PA-C Work Phone: [facility] 01-17-2024 08:24-0400 Body height 172.7 cm Shaun Kowalski MD Work Phone: [facility] 01-17-2024 08:24-0400 Body mass index (BMI) [Ratio] 25.32 kg/m2 Shaun Kowalski MD Work Phone: [facility] 01-17-2024 08:24-0400 Body temperature 97.11 [degF] Shaun Kowalski MD Work Phone: [facility] 01-17-2024 08:24-0400 Body weight 75.52 kg Shaun Kowalski MD Work Phone: [facility] 01-17-2024 08:24-0400 Diastolic blood pressure 85 mm[Hg] Shaun Kowalski MD Work Phone: [facility] 01-17-2024 08:24-0400 Heart rate 63 /min Shaun Kowalski MD Work Phone: [facility] 01-17-2024 08:24-0400 Respiratory rate 18 /min Shaun Kowalski MD Work Phone: [facility] 01-17-2024 08:24-0400 SaO2% (BldA) [Mass fraction] 97 % Shaun Kowalski MD Work Phone: [facility] 01-17-2024 08:24-0400 Systolic blood pressure 141 mm[Hg] Shaun Kowalski MD Work Phone: [facility] 01-10-2024 08:57-0400 Body mass index (BMI) [Ratio] 25.09 kg/m2 Darya Saira 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 Work Phone: [facility] 01-10-2024 08:57-0400 Body weight 74.84 kg Darya Saira 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 Work Phone: [facility] 01-10-2024 08:57-0400 Diastolic blood pressure 72 mm[Hg] Darya RosalesSaira 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 Work Phone: [facility] 01-10-2024 08:57-0400 Heart rate 61 /min Darya Saira 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 Work Phone: [facility] 01-10-2024 08:57-0400 Respiratory rate 18 /min Darya RichardsonSaira 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 Work Phone: [facility] 01-10-2024 08:57-0400 Systolic blood pressure 112 mm[Hg] Darya Asira 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 Work Phone: [facility] 12-27-2023 08:40-0400 Diastolic blood pressure 74 mm[Hg] [facility] 12-27-2023 08:40-0400 Heart rate 67 /min [facility] 12-27-2023 08:40-0400 Respiratory rate 16 /min [facility] 12-27-2023 08:40-0400 SaO2% (BldA) [Mass fraction] 97 % [facility] 12-27-2023 08:40-0400 Systolic blood pressure 159 mm[Hg] [facility] 12-27-2023 07:28-0400 Body height 172.72 cm [facility] 12-27-2023 07:28-0400 Body mass index (BMI) [Ratio] 25 kg/m2 [facility] 12-27-2023 07:28-0400 Body temperature 97.8 [degF] [facility] 12-27-2023 07:28-0400 Body weight 74.84 kg [facility] 08-10-2023 08:08-0500 Body height 172.7 cm Darya Older 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 Work Phone: [facility] 08-10-2023 08:08-0500 Body weight 72.58 kg Darya Older 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 Work Phone: [facility] 08-10-2023 08:08-0500 Diastolic blood pressure 74 mm[Hg] Darya Older 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 Work Phone: [facility] 08-10-2023 08:08-0500 Heart rate 68 /min Darya Older 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 Work Phone: [facility] 08-10-2023 08:08-0500 Respiratory rate 16 /min Darya Older 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 Work Phone: [facility] 08-10-2023 08:08-0500 SaO2% (BldA) [Mass fraction] 98 % Darya Older 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 Work Phone: [facility] 08-10-2023 08:08-0500 Systolic blood pressure 122 mm[Hg] Darya Older 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 Work Phone: [facility] 06-25-2023 13:25-0400 Body height 172.[address] Dallas Reed Work Phone: [facility] 06-25-2023 13:25-0400 Body mass index (BMI) [Ratio] 24.9 kg/m2 Dr. Dallas Reed Work Phone: [facility] 06-25-2023 13:25-0400 Body temperature 97.1 [degF] Dr. Dallas Reed Work Phone: 2(923)315-754319 [place] [address] 06-25-2023 13:25-0400 Body weight 74.[address] Dallas Reed Work Phone: 9(570)180-379919 [place] [address] 06-25-2023 13:25-0400 Diastolic blood pressure 79 mm[Hg] Dr. Dallas Reed Work Phone: 9(644)517-326419 [place] [address] 06-25-2023 13:25-0400 Heart rate 61 /min Dr. Dallas Reed Work Phone: 8(104)591-959719 [place] [address] 06-25-2023 13:25-0400 Respiratory rate 16 /min Dr. Dallas Reed Work Phone: 1(985)846-950619 [place] [address] 06-25-2023 13:25-0400 SaO2% (BldA) [Mass fraction] 98 % Dr. Dallas Reed Work Phone: 0(994)379-149619 [place] [address] 06-25-2023 13:25-0400 Systolic blood pressure 202 mm[Hg] Dr. Dallas Reed Work Phone: 2(705)387-349519 [place] [address] 05-26-2023 14:15-0400 Body height 172.[address] Dallas Reed Work Phone: 7(553)212-813519 [place] [address] 05-26-2023 14:15-0400 Body mass index (BMI) [Ratio] 25.4 kg/m2 Dr. Dallas Reed Work Phone: 2(830)854-303919 [place] [address] 05-26-2023 14:15-0400 Body weight 75.[address] Dallas Reed Work Phone: 2(632)824-100619 [place] [address] 05-26-2023 14:15-0400 Diastolic blood pressure 79 mm[Hg] Dr. Dallas Reed Work Phone: 1(593)802-693719 [place] [address] 05-26-2023 14:15-0400 Heart rate 63 /min Dr. Dallas Reed Work Phone: 0(195)124-161019 [place] [address] 05-26-2023 14:15-0400 Respiratory rate 16 /min Dr. Dallas Reed Work Phone: [facility] 05-26-2023 14:15-0400 SaO2% (BldA) [Mass fraction] 97 % Dr. Dallas Reed Work Phone: [facility] 05-26-2023 14:15-0400 Systolic blood pressure 159 mm[Hg] Dr. Dallas Reed Work Phone: [facility] 04-19-2023 10:15-0400 Diastolic blood pressure 68 mm[Hg] Dr. Dallas Reed Work Phone: [facility] 04-19-2023 10:15-0400 Heart rate 64 /min Dr. Dallas Reed Work Phone: [facility] 04-19-2023 10:15-0400 Respiratory rate 17 /min Dr. Dallas Reed Work Phone: [facility] 04-19-2023 10:15-0400 SaO2% (BldA) [Mass fraction] 98 % Dr. Dallas Reed Work Phone: [facility] 04-19-2023 10:15-0400 Systolic blood pressure 169 mm[Hg] Dr. Dallas Reed Work Phone: [facility] 04-16-2023 10:16-0400 Body weight 74.39 kg Dallas Reed MD Work Phone: [facility] 04-16-2023 10:16-0400 Diastolic blood pressure 70 mm[Hg] Dallas Reed MD Work Phone: [facility] 04-16-2023 10:16-0400 Heart rate 60 /min Dallas Reed MD Work Phone: [facility] 04-16-2023 10:16-0400 Respiratory rate 16 /min Dallas Reed MD Work Phone: [facility] 04-16-2023 10:16-0400 Systolic blood pressure 146 mm[Hg] Dallas Reed MD Work Phone: [address]20-2023 17:09-0400 Body temperature 97.8 [degF] Dr. Dallas Reed Work Phone: [facility] 04-08-2023 17:09-0400 Diastolic blood pressure 66 mm[Hg] Dr. Dallas Reed Work Phone: 5(163)953-637619 [place] [address] 04-08-2023 17:09-0400 Heart rate 71 /min Dr. Dallas Reed Work Phone: 4(681)879-011819 [place] [address] 04-08-2023 17:09-0400 Respiratory rate 20 /min Dr. Dallas Reed Work Phone: 0(693)029-079919 [place] [address] 04-08-2023 17:09-0400 SaO2% (BldA) [Mass fraction] 99 % Dr. Dallas Reed Work Phone: 3(543)613-254719 [place] [address] 04-08-2023 17:09-0400 Systolic blood pressure 159 mm[Hg] Dr. Dallas Reed Work Phone: 3(276)350-350019 [place] [address] 04-08-2023 08:00-0400 Inhaled oxygen flow rate 2 L/min Dr. Dallas Reed Work Phone: 0(307)107-023419 [place] [address] 04-08-2023 01:32-0400 Body mass index (BMI) [Ratio] 25.2 kg/m2 Dr. Dallas Reed Work Phone: 2(479)330-748419 [place] [address] 04-08-2023 01:32-0400 Body weight 75.[address] Dallas Reed Work Phone: 8(268)371-228019 [place] [address] 04-07-2023 10:14-0400 Body height 172.[address] Dallas Reed Work Phone: 8(389)288-248119 [place] [address] 03-05-2023 07:49-0400 Diastolic blood pressure 75 mm[Hg] Dr. Dallas Reed Work Phone: 8(925)274-443819 [place] [address] 03-05-2023 07:49-0400 Systolic blood pressure 156 mm[Hg] Dr. Dallas Reed Work Phone: [facility] 03-04-2023 09:57-0400 Diastolic blood pressure 76 mm[Hg] Dallas Reed MD Work Phone: [facility] 03-04-2023 09:57-0400 Heart rate 62 /min Dallas Reed MD Work Phone: [facility] 03-04-2023 09:57-0400 Systolic blood pressure 160 mm[Hg] Dallas Reed MD Work Phone: [facility] 03-04-2023 09:48-0400 Body weight 73.48 kg Dallas Reed MD Work Phone: [facility] 03-04-2023 09:48-0400 Respiratory rate 12 /min Dallas Reed MD Work Phone: [facility] 02-25-2023 14:17-0400 Body mass index (BMI) [Ratio] 25 kg/m2 Dr. Dallas Reed Work Phone: [facility] 02-25-2023 14:17-0400 Body temperature 98.1 [degF] Dr. Dallas Reed Work Phone: [facility] 02-25-2023 14:17-0400 Body weight 74.[address] Dallas Reed Work Phone: [facility] 02-25-2023 14:17-0400 Diastolic blood pressure 65 mm[Hg] Dr. Dallas Reed Work Phone: [facility] 02-25-2023 14:17-0400 Heart rate 68 /min Dr. Dallas Reed Work Phone: 7(841)557-496214 [place] [address] 02-25-2023 14:17-0400 Respiratory rate 16 /min Dr. Dallas Reed Work Phone: [facility] 02-25-2023 14:17-0400 SaO2% (BldA) [Mass fraction] 98 % Dr. Dallas Reed Work Phone: [facility] 02-25-2023 14:17-0400 Systolic blood pressure 129 mm[Hg] Dr. Dallas Reed Work Phone: [facility] 02-23-2023 09:51-0400 Diastolic blood pressure 97 mm[Hg] Dr. Dallas Reed Work Phone: [facility] 02-23-2023 09:51-0400 Systolic blood pressure 199 mm[Hg] Dr. Dallas Reed Work Phone: [facility] 02-23-2023 09:36-0400 Body temperature 97.8 [degF] Dr. Dallas Reed Work Phone: [facility] 02-23-2023 09:36-0400 Heart rate 55 /min Dr. Dallas Reed Work Phone: [facility] 02-23-2023 09:36-0400 Respiratory rate 18 /min Dr. Dallas Reed Work Phone: [facility] 02-23-2023 09:36-0400 SaO2% (BldA) [Mass fraction] 99 % Dr. Dallas Reed Work Phone: [facility] 02-01-2023 10:45-0400 Body temperature 96.91 [degF] Adrian Bogner PA-C Work Phone: [facility] 02-01-2023 10:45-0400 Body weight 73.48 kg Adrian Bogner PA-C Work Phone: [facility] 02-01-2023 10:45-0400 Diastolic blood pressure 64 mm[Hg] Adrian Bogner PA-C Work Phone: [facility] 02-01-2023 10:45-0400 Heart rate 64 /min Adrian Bogner PA-C Work Phone: [facility] 02-01-2023 10:45-0400 Respiratory rate 16 /min Adrian Bogner PA-C Work Phone: [facility] 02-01-2023 10:45-0400 SaO2% (BldA) [Mass fraction] 99 % Adrian PEREZ-C Work Phone: [facility] 02-01-2023 10:45-0400 Systolic blood pressure 108 mm[Hg] Adrian Warner PA-C Work Phone: [facility] 01-15-2023 11:59-0400 Diastolic blood pressure 72 mm[Hg] Lisa Rodriguez MD Work Phone: [facility] 01-15-2023 11:59-0400 Heart rate 67 /min Lisa Rodriguez MD Work Phone: [facility] 01-15-2023 11:59-0400 Respiratory rate 18 /min Lisa Rodriguez MD Work Phone: [facility] 01-15-2023 11:59-0400 SaO2% (BldA) [Mass fraction] 97 % Lisa Rodriguez MD Work Phone: [facility] 01-15-2023 11:59-0400 Systolic blood pressure 147 mm[Hg] Lisa Rodriguez MD Work Phone: [facility] 01-15-2023 11:43-0400 Body temperature 97.81 [degF] Lisa Rodriguez MD Work Phone: [facility] 01-15-2023 10:54-0400 Body height 172.7 cm Lisa Rodriguez MD Work Phone: [facility] 01-15-2023 10:54-0400 Body mass index (BMI) [Ratio] 24.33 kg/m2 Lisa Rodriguez MD Work Phone: [facility] 01-15-2023 10:54-0400 Body weight 72.58 kg Lisa Rodriguez MD Work Phone: [facility] 01-07-2023 16:10-0400 Body height 172.7 cm Lisa Rodriguez MD Work Phone: [facility] 01-07-2023 16:10-0400 Body weight 72.58 kg Lisa Rodriguez MD Work Phone: [facility] 01-07-2023 16:10-0400 Diastolic blood pressure 68 mm[Hg] Lisa Rodriguez MD Work Phone: [facility] 01-07-2023 16:10-0400 Heart rate 74 /min Lisa Rodriguez MD Work Phone: [facility] 01-07-2023 16:10-0400 Systolic blood pressure 114 mm[Hg] Lisa Rodriguez MD Work Phone: [facility] 12-30-2022 11:57-0400 Body temperature 97.39 [degF] Dallas Reed MD Work Phone: [facility] 12-30-2022 11:57-0400 Body weight 72.35 kg Dallas Reed MD Work Phone: [facility] 12-30-2022 11:57-0400 Diastolic blood pressure 80 mm[Hg] Dallas Reed MD Work Phone: [facility] 12-30-2022 11:57-0400 Heart rate 64 /min Dallas Reed MD Work Phone: [facility] 12-30-2022 11:57-0400 Respiratory rate 16 /min Dallas Reed MD Work Phone: [facility] 12-30-2022 11:57-0400 Systolic blood pressure 132 mm[Hg] Dallas Reed MD Work Phone: [facility] 07-03-2022 16:55-0400 Body temperature 97.39 [degF] Gavin Rivero APRN.SPA ATTENDANT Work Phone: [facility] 07-03-2022 16:55-0400 Body weight 76.11 kg Gavin Rivero 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 Work Phone: [facility] 07-03-2022 16:55-0400 Diastolic blood pressure 78 mm[Hg] Gavin Rivero 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 Work Phone: [facility] 07-03-2022 16:55-0400 Heart rate 69 /min Gavin Rivero 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 Work Phone: [facility] 07-03-2022 16:55-0400 Respiratory rate 18 /min Gavin Rivero 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 Work Phone: [facility] 07-03-2022 16:55-0400 SaO2% (BldA) [Mass fraction] 98 % Gavin Rivero 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 Work Phone: [facility] 07-03-2022 16:55-0400 Systolic blood pressure 122 mm[Hg] Gavin Rivero 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 Work Phone: [facility] 02-17-2022 11:32-0400 Body temperature 99.39 [degF] Nona Maloney 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 Work Phone: [facility] 02-17-2022 11:32-0400 Body weight 77.2 kg Nona Maloney APRN.SPA ATTENDANT Work Phone: [facility] 02-17-2022 11:32-0400 Diastolic blood pressure 68 mm[Hg] Nona Maloney 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 Work Phone: [facility] 02-17-2022 11:32-0400 Heart rate 82 /min Nona Maloney 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 Work Phone: [facility] 02-17-2022 11:32-0400 Respiratory rate 20 /min Nona Maloney 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 Work Phone: [facility] 02-17-2022 11:32-0400 SaO2% (BldA) [Mass fraction] 96 % Nona Maloney 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 Work Phone: [facility] 02-17-2022 11:32-0400 Systolic blood pressure 122 mm[Hg] Nona Maloney 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 Work Phone: [facility] 02-10-2022 09:14-0400 Diastolic blood pressure 76 mm[Hg] Mi Nurse Work Phone: [facility] 02-10-2022 09:14-0400 Heart rate 62 /min Mi Nurse Work Phone: [facility] 02-10-2022 09:14-0400 Systolic blood pressure 128 mm[Hg] Mi Nurse Work Phone: [facility] 01-13-2022 08:58-0400 Diastolic blood pressure 64 mm[Hg] Dallas Reed MD Work Phone: [facility] 01-13-2022 08:58-0400 Heart rate 60 /min Dallas Reed MD Work Phone: [facility] 01-13-2022 08:58-0400 Systolic blood pressure 150 mm[Hg] Dallas Reed MD Work Phone: [facility] 01-13-2022 08:47-0400 Body temperature 97.5 [degF] Dallas Reed MD Work Phone: [facility] 01-13-2022 08:47-0400 Body weight 73.94 kg Dallas Reed MD Work Phone: [facility] 01-13-2022 08:47-0400 Respiratory rate 20 /min Dallas Reed MD Work Phone: [facility] 11-12-2021 14:57-0500 Body height 172.[address] Dallas Reed Work Phone: [facility] Work Phone: 11-12-2021 14:57-0500 Body mass index (BMI) [Ratio] 25.4 kg/m2 Dr. Dallas Reed Work Phone: [facility] Work Phone: 11-12-2021 14:57-0500 Body weight 75.[address] Dallas Reed Work Phone: [facility] Work Phone: 11-12-2021 14:57-0500 Diastolic blood pressure 73 mm[Hg] Dr. Dallas Reed Work Phone: [facility] Work Phone: 11-12-2021 14:57-0500 Heart rate 92 /min Dr. Dallas Reed Work Phone: [facility] Work Phone: 11-12-2021 14:57-0500 Respiratory rate 18 /min Dr. Dallas Reed Work Phone: [facility] Work Phone: 11-12-2021 14:57-0500 SaO2% (BldA) [Mass fraction] 99 % Dr. Dallas Reed Work Phone: [facility] Work Phone: 11-12-2021 14:57-0500 Systolic blood pressure 132 mm[Hg] Dr. Dallas Reed Work Phone: [facility] Work Phone: 07-19-2019 11:45-0400 Body Temperature 98.01 [degF] [place], [place] 07-19-2019 11:45-0400 BP Diastolic 94 mm[Hg] [place], [place] 07-19-2019 11:45-0400 BP Systolic 165 mm[Hg] [place] 07-19-2019 11:45-0400 Pulse (Heart Rate) 76 /min [place], [place] 07-19-2019 11:45-0400 Pulse Oximetry 95 % [place] 07-19-2019 11:45-0400 Respiratory Rate 20 /min [place] 07-19-2019 07:14-0400 BMI (Body Mass Index) 28.94 kg/m2 [place], [place] 07-19-2019 07:14-0400 Body weight 88.91 kg [place] 07-19-2019 07:14-0400 Height 175.3 cm [facility] [place] [facility] [place] Encounters Encounter Date Encounter Type Care Provider Facility Start: 05-21-2025 Evaluation and management of inpatient Dr. Cameron Solares DO -Intensive Care Unit Work Phone: Start: 05-18-2025 End: 05-18-2025 Office outpatient visit 25 minutes Darya Borden 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 Work Phone: [facility] Comment on above: Fatigue, unspecified type (Primary Dx); Essential hypertension; Chronic diastolic CHF (congestive heart failure) (HCC); Anemia, unspecified type; Subclinical hypothyroidism Start: 05-18-2025 End: 05-18-2025 ambulatory DARYA BORDEN Facility:[facility] Start: 05-10-2025 End: 05-10-2025 Patient encounter procedure Mike Jay CHANGE CONSULTANT-C -[facility] Work Phone: Start: 05-10-2025 End: 05-10-[address] Dallas Reed MD Work Phone: -[facility] Start: 05-10-2025 End: 05-10-2025 ambulatory Mike Jay NP Facility:[facility] Start: 04-30-2025 End: 04-30-[address] Dallas Reed MD Work Phone: -[facility] Start: 04-30-2025 End: 04-30-[address] Dustin Hawk MD -[facility] Work Phone: Start: 04-30-2025 End: 04-30-2025 ambulatory Dustin Hawk Facility:[facility] Start: 04-18-2025 End: 04-18-[address] Dustin Hawk MD -[facility] Work Phone: Start: 04-18-2025 End: 04-18-[address] Dallas Reed MD Work Phone: -[facility] Start: 04-03-2025 End: 04-03-2025 ambulatory Luci Matute RN Rn Radiation Management Comment on above: Bi-Weekly Outreach ( Recurring) for Chronic Disease Management, Bi-Weekly Outreach (Recurring) for Chronic Disease Management Start: 03-28-2025 End: 03-28-2025 Refill Dallas Reed MD Work Phone: [facility] Comment on above: Refill Request Start: 03-20-2025 End: 03-20-2025 ambulatory Adriane White RN Rn Radiation Management Start: 03-20-2025 End: 03-20-2025 Patient encounter procedure Adriane White RN Rn Radiation Management Comment on above: Bi-Weekly Outreach ( Recurring) for Chronic Disease Management Start: 03-19-2025 End: 03-19-2025 Telephone encounter Essence Romero PA-C Work Phone: [facility] Comment on above: 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 Start: 03-16-2025 End: 03-16-2025 Encounter for preprocedural laboratory examination [facility] Start: 03-13-2025 End: 03-13-2025 Follow-up encounter Darya Borden APRN.SPA ATTENDANT Work Phone: [facility] Start: 03-12-2025 End: 03-12-2025 Telephone encounter Munira Dickinson RN [facility] Special Procedur es Start: 03-12-2025 End: 03-12-2025 Office outpatient visit 25 minutes Darya Borden APRN.SPA ATTENDANT Work Phone: [facility] Comment on above: Subclinical hypothyr oidism (Primary Dx); Fatigue, unspecified type; Type II endoleak of aortic graft; Anemia of chronic disease; Stage 3b chronic kidney disease (HCC); Essential hypertension; Chronic diastolic CHF (congestive heart failure) (HCC) Start: 03-12-2025 End: 03-12-2025 ambulatory DARYAGilda BORDEN Facility:[facility] Start: 03-02-2025 End: 03-02-2025 ambulatory Adriane White RN Rn Radiation Management Start: 03-02-2025 End: 03-02-2025 Patient encounter procedure Adriane White RN Rn Radiation Management Comment on above: Bi-Weekly Outreach ( Recurring) for Chronic Disease Management Start: 03-01-2025 End: 03-01-2025 Documentation procedure Ana Bobo MD Work Phone: [facility] Special Procedures Start: 02-27-2025 End: 02-27-2025 Patient encounter procedure Carine PEREZ -[facility] Work Phone: Start: 02-27-2025 End: 02-27-[address] Dallas Reed MD Work Phone: [facility] Work Phone: Start: 02-26-2025 End: 02-26-2025 ambulatory Adriane White RN Rn Radiation Management Start: 02-26-2025 End: 02-26-2025 Patient encounter procedure Adriane White RN Rn Radiation Management Comment on above: Care Coordination (C lerma review and outreach for chf gdmt care path) Start: 02-19-2025 End: 02-19-2025 ambulatory Adriane White RN Rn Radiation Management Start: 02-19-2025 End: 02-19-2025 Patient encounter procedure Adriane White switch adjusterRn Radiation Management Comment on above: Bi-Weekly Outreach ( Recurring) for Chronic Disease Management Start: 02-15-2025 End: 02-16-2025 Refill Dallas Reed MD Work Phone: [facility] Comment on above: Refill Request Start: 02-14-2025 ambulatory Dustin Hawk Facility:[facility] Start: 02-14-2025 Non-patient / Non-visit Dr. Dustin ramirez MD -[facility] Start: 02-14-2025 End: 02-14-2025 Admission to same day surgery center Dr. Dustin Hawk MD -Powdered Sugar Supervisor/Special Procedures Work Phone: Start: 02-14-2025 End: 02-14-[address] Dallas Reed MD Work Phone: [facility] Work Phone: Start: 02-01-2025 End: 02-01-2025 ambulatory Adriane White RN Rn Radiation Management Start: 02-01-2025 End: 02-01-2025 Patient encounter procedure Adriane White switch adjusterRn Radiation Management Comment on above: Bi-Weekly Outreach ( Recurring) for Chronic Disease Management Start: 01-18-2025 End: 01-18-2025 Patient encounter procedure Carine Noble PA -Cat [facility] Work Phone: Start: 01-17-2025 End: 01-18-2025 ambulatory Adriane White RN Rn Radiation Management Start: 01-17-2025 End: 01-17-2025 Patient encounter procedure Adriane White switch adjusterRn Radiation Management Comment on above: Initial enrollment o zoie for Chronic Disease Management Start: 01-12-2025 End: 01-12-2025 Emergency department patient visit Dr. Dallas Reed MD Work Phone: -Emergency Department Work Phone: Start: 12-26-2024 End: 12-26-2024 ambulatory Adriane White RN Rn Radiation Management Start: 12-26-2024 End: 12-26-2024 Patient encounter procedure Adriane White switch adjusterRn Radiation Management Comment on above: Weekly phone contact (Recurring) for Transitional Care Management Start: 12-25-2024 End: 12-25-[address] Dustin Hawk MD -[facility] Work Phone: Start: 12-25-2024 End: 12-25-2024 ambulatory Dustin Hawk Facility:[facility] Start: 12-22-2024 End: 12-22-2024 ambulatory Ramon Lee PT Work Phone: [facility] Comment on above: Proximal leg weaknes s (Primary Dx); Fall, subsequent encounter; Contusion of scalp, subsequent encounter Start: 12-19-2024 End: 12-19-2024 Patient encounter procedure Adriane White RN Rn Radiation Management Comment on above: Weekly phone contact (Recurring) for Transitional Care Management Start: 12-19-2024 End: 12-19-2024 ambulatory Ramon Lee PT Work Phone: [facility] Comment on above: Proximal leg weaknes s (Primary Dx); Fall, subsequent encounter; Contusion of scalp, subsequent encounter Start: 12-15-2024 End: 12-15-2024 ambulatory Ramon Yvonne PT Work Phone: [facility] Comment on above: Proximal leg weaknes s (Primary Dx); Fall, subsequent encounter; Contusion of scalp, subsequent encounter Start: 12-12-2024 End: 12-12-2024 ambulatory Ramon Yvonne PT Work Phone: [facility] Comment on above: Proximal leg weaknes s (Primary Dx) Start: 12-11-2024 End: 12-11-2024 ambulatory Adriane White RN Rn Radiation Management Start: 12-11-2024 End: 12-11-2024 Patient encounter procedure Adriane White RN Rn Radiation Management Comment on above: Weekly phone contact (Recurring) for Transitional Care Management Refill Request Start: 12-11-2024 End: 12-11-2024 Telephone encounter Emily Fagan [facility] Work Phone: [facility] Comment on above: Medication Question Start: 12-08-2024 End: 12-08-2024 ambulatory DALLAS REED Facility:[facility] Start: 12-08-2024 End: 12-08-2024 Patient encounter procedure Dallas Reed MD Work Phone: [facility] Comment on above: 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); Chronic diastolic CHF (congestive heart failure) (HCC); Stage 3b chronic kidney disease (HCC); Essential hypertension Start: 12-08-2024 End: 12-08-2024 ambulatory Ramontrudy RiceYvonne PT Work Phone: [facility] Comment on above: Fall, subsequent enc ounter (Primary Dx); Proximal leg weakness; Contusion of scalp, subsequent encounter Start: 12-06-2024 End: 12-06-2024 ambulatory Ramon Lee PT Work Phone: [facility] Comment on above: Fall, subsequent enc ounter (Primary Dx); Proximal leg weakness; Contusion of scalp, subsequent encounter Start: 12-04-2024 End: 12-05-2024 ambulatory Adriane White switch adjusterRn Radiation Management Start: 12-04-2024 End: 12-05-2024 Patient encounter procedure Adriane White RN Rn Radiation Management Comment on above: Initial phone contac t for Transitional Care Management Transition Of Care; Heart Failure (TCM Pharmacy-Hospital discharge 12/01/24) Start: 12-02-2024 End: 12-02-2024 Telephone encounter Dustin Lombardi APRN.SPA ATTENDANT Work Phone: Cardiothoracic Comment on above: Patient Question; Me dication Problem Start: 11-28-2024 End: 12-01-2024 Evaluation and management of inpatient RAN AGUSTÍN Facility:[facility] Start: 11-28-2024 End: 11-28-2024 Emergency department patient visit Dr. Dallas Reed MD Work Phone: -Emergency Department Work Phone: Start: 11-28-2024 End: 11-28-2024 Subsequent hospital visit by physician [facility] Comment on above: Left lower quadrant abdominal pain [R10.32] Start: 11-28-2024 End: 11-28-2024 ambulatory Tali Maldonado 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 Work Phone: Critical Care Start: 11-28-2024 End: 12-08-2024 Telephone encounter Dallas Reed MD Work Phone: [facility] Comment on above: Results Start: 11-27-2024 End: 11-27-2024 ambulatory DARYA BORDEN Facility:[facility] Start: 11-27-2024 End: 11-27-2024 ambulatory DALLAS REED Facility:[facility] Start: 11-27-2024 End: 11-27-2024 Patient encounter procedure Gavin Heatonmaame 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 Work Phone: [facility] Comment on above: Procedure not ammy d out (Primary Dx) Left lower quadrant abdominal pain (Primary Dx) Start: 11-24-2024 End: 11-24-2024 ambulatory Ramon Lee PT Work Phone: [facility] Comment on above: Fall, subsequent enc ounter (Primary Dx); Proximal leg weakness; Contusion of scalp, subsequent encounter Start: 11-21-2024 End: 11-21-2024 ambulatory Ramon Lee PT Work Phone: [facility] Comment on above: Fall, subsequent enc ounter (Primary Dx); Contusion of scalp, subsequent encounter; Proximal leg weakness Start: 11-09-2024 End: 11-09-2024 ambulatory DALLAS REED Facility:[facility] Start: 11-09-2024 End: 11-09-2024 Office outpatient visit 15 minutes Dallas Reed MD Work Phone: [facility] Comment on above: Contusion of scalp, subsequent encounter (Primary Dx); Fall, subsequent encounter; Proximal leg weakness Start: 11-07-2024 End: 11-07-2024 ambulatory DALLAS REED Facility:[facility] Start: 11-07-2024 End: 11-07-2024 Patient encounter procedure Elbert Kenn 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 Work Phone: [facility] Comment on above: Abrasion of head, in itial encounter (Primary Dx) Start: 10-02-2024 End: 10-02-2024 Refill Darya Borden 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 Work Phone: [facility] Comment on above: Refill Request Start: 09-15-2024 End: 09-15-[address] Lara Fonseca MD -[facility] Work Phone: Start: 09-15-2024 End: 09-15-2024 ambulatory Lara Fonseca Facility[place] Start: 09-08-2024 End: 09-08-2024 Telephone encounter Darya Leeanna Saira CHAN.SPA ATTENDANT Work Phone: [facility] Comment on above: Results Start: 09-07-2024 End: 09-07-2024 ambulatory DARYA Durán SAIRA Facility:[facility] Start: 09-07-2024 End: 09-07-2024 Patient encounter procedure Darya Durán Saira 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 Work Phone: [facility] Comment on above: Medicare annual well ness visit, subsequent (Primary Dx); Hypothyroidism, unspecified type; TIA (transient ischemic attack); Mixed hyperlipidemia; Primary hypertension; Screening for depression; Encounter for screening examination for other mental health and behavioral disorders; Spigelian hernia; Stage 3b chronic kidney disease (HCC) Start: 08-31-2024 ambulatory Lara Fonseca Facilit y:[facility] Start: 08-31-2024 Non-patient / Non-visit Dr. Garrison Fonseca MD -[facility] Start: 08-31-2024 End: 08-31-2024 Admission to same day surgery center Dr. Lara Fonseca MD -[facility] Start: 08-31-2024 End: 08-31-2024 ambulatory Laraallie Fonseca Facility:[facility] Start: 08-28-2024 End: 08-28-2024 ambulatory Fide Goff switch adjusterRn Radiation Management Comment on above: CDM (Chronic Disease Management Routine Call/) Start: 08-24-2024 End: 08-24-2024 ambulatory Fide Goff switch adjusterRn Radiation Management Comment on above: CDM (Chronic Disease Management Routine Call/) Start: 08-23-2024 ambulatory Lara Fonseca Facilit y:[facility] Start: 08-23-2024 Non-patient / Non-visit Dr. Garrison Fonseca MD -[facility] Start: 08-04-2024 End: 08-04-2024 ambulatory DALLAS REED Facility:[facility] Start: 08-01-2024 End: 08-03-2024 Telephone encounter Dallas Reed MD Work Phone: [facility] Comment on above: Surgical Clearance F orms Start: 07-26-2024 End: 07-26-2024 ambulatory Lara Fonseca Facility:[facility] Start: 07-24-2024 End: 07-24-2024 ambulatory Fide Goff RN Rn Radiation Management Comment on above: CDM (Chronic Disease Management Routine Call/) Start: 07-22-2024 End: 07-22-2024 ambulatory Fide Goff RN Rn Radiation Management Comment on above: CDM (Chronic Disease Management Routine Call/) Start: 07-17-2024 End: 07-17-2024 ambulatory DALLAS REED Facility:[facility] Start: 07-17-2024 End: 07-17-2024 Office outpatient visit 25 minutes Dallas Reed MD Work Phone: [facility] Comment on above: Spigelian hernia (Pr imary Dx); 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); S/P AAA repair; Pancreatic cyst; Splenomegaly Start: 07-11-2024 End: 07-11-2024 Emergency department patient visit [facility] Facility:[facility] Start: 07-11-2024 End: 07-11-2024 ambulatory DALLAS REED Facility:[facility] Start: 07-11-2024 End: 07-11-2024 Patient encounter procedure Gavin Rivero APRN.CNP Work Phone: [facility] Comment on above: Procedure not ammy d out (Primary Dx) Start: 07-07-2024 End: 07-07-2024 ambulatory Dallas Reed Facility:[facility] Start: 06-22-2024 End: 06-23-2024 ambulatory Fide Goff RN Rn Radiation Management Comment on above: CDM (Engagement Call ) Start: 06-07-2024 End: 06-07-2024 ambulatory DALLAS REED Facility:[facility] Start: 06-07-2024 End: 06-07-2024 Office outpatient visit 25 minutes Dallas Reed MD Work Phone: [facility] Comment on above: TIA (transient ische raegan attack) (Primary Dx); S/P carotid endarterectomy right; Chronic diastolic CHF (congestive heart failure) (HCC); Stage 3b chronic kidney disease (HCC); Thrombocytopenia (HCC); Abnormal TSH; Mixed hyperlipidemia Start: 05-31-2024 End: 05-31-2024 ambulatory DALLAS REED Facility:[facility] Start: 05-24-2024 ambulatory Donato Von Facility:[facility] Start: 05-23-2024 End: 05-24-2024 ambulatory Margy Stark Facility:[facility] Start: 05-23-2024 End: 05-23-2024 Office outpatient visit 25 minutes Adrian Warner PA-C Work Phone: [facility] Comment on above: Dizziness (Primary D x); Chronic diastolic CHF (congestive heart failure) (HCC); BENIGN HYPERTENSION; Weight loss; Fatigue, unspecified type; History of anemia Start: 05-23-2024 End: 05-23-2024 Telephone encounter Dallas Reed MD Work Phone: [facility] Comment on above: Future Appointment Start: 04-07-2024 Telephone encounter Dallas casey MD Work Phone: [facility] Comment on above: Consult Start: 03-22-2024 Refill Darya silva 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 Work Phone: [facility] Comment on above: Refill Request Start: 03-11-2024 End: 03-11-2024 Patient encounter procedure Prema Agee 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 Work Phone: [facility] Comment on above: Chronic right should er pain (Primary Dx) Start: 03-07-2024 ambulatory Fide Goff RN [facility] Comment on above: Community Monitoring Outreach Start: 03-06-2024 Telephone encounter Dallas casey MD Work Phone: [facility] Comment on above: fax referral to Dr Gilda cervantes Refill Request Start: 02-29-2024 Telephone encounter Dallas casey MD Work Phone: [facility] Comment on above: Results Start: 02-10-2024 Refill Dallas jaramillo MD Work Phone: [facility] Comment on above: Refill Request Start: 02-09-2024 End: 02-09-2024 Subsequent hospital visit by physician [facility] Work Phone: Radiology Comment on above: Acute pain of both s zhang [M25.511, M25.512] Start: 02-09-2024 End: 02-09-2024 Patient encounter procedure Ayla Carrasquillo PA-C Work Phone: [facility] Comment on above: Acute pain of [...] End: 01-10-2024 Patient encounter procedure Darya Borden APRN.CNP Work Phone: [facility] Comment on above: Primary hypertension (Primary Dx); [...] encounter status Shaun Kowalski MD Work Phone: [facility] Start: 12-31-2023 Telephone encounter Shaun mendoza MD Work Phone: Vascular Surg Dept Comment on above: Consult Start: 12-27-2023 End: 12-27-2023 ambulatory [facility] Work Phone: Start: 12-27-2023 End: 12-27-2023 [facility] encounter [facility] Work [facility]: Start: 11-28-2023 ambulatory Fide Goff RN [facility] Comment on above: Community Monitoring Outreach Start: 08-10-2023 End: 08-10-2023 Patient encounter procedure Darya Older 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 Work Phone: [facility] Comment on above: Medicare annual well ness visit, subsequent (Primary Dx) Start: 08-03-2023 End: 08-03-[address] Dallas Reed Work Phone: [facility] Work Phone: Start: 08-03-2023 End: 08-03-[address] Dallas Reed Work Phone: [facility] Work Phone: Start: 06-25-2023 Refill Dallas jaramillo MD Work Phone: [facility] Comment on above: Refill Request Start: 06-25-2023 End: 06-25-[address] Dallas Reed Work Phone: [facility] Work Phone: Start: 05-26-2023 End: 05-26-[address] Dallas Reed Work Phone: [facility] Work Phone: Start: 05-26-2023 End: 05-26-[address] Dallas Reed Work Phone: [facility] Work Phone: Start: 05-20-2023 ambulatory Fide Goff RN [facility] Comment on above: Community Monitoring Outreach Start: 04-19-2023 End: 04-19-[address] Dallas Reed Work Phone: [facility] Work Phone: Start: 04-19-2023 End: 04-19-[address] Dallas Reed Work Phone: [facility] Work Phone: Start: 04-16-2023 End: 04-16-2023 Patient encounter procedure Dallas Reed MD Work Phone: [facility] Comment on above: Primary hypertension (Primary Dx); S/P AAA repair Start: 04-08-2023 Non-patient / Non-visit Dr. Ilana Reed Work Phone: [facility] Start: 04-07-2023 Non-patient / Non-visit Dr. Ilana Reed Work Phone: [facility] Start: 04-07-2023 End: 04-08-2023 Evaluation and management of inpatient Dr. Dallas Reed Work Phone: [facility]-Progressive [facility] Unit Work Phone: Start: 04-01-2023 End: 04-01-2023 Non-patient / Non-visit Dr. Dallas Reed Work Phone: [facility] Work Phone: Start: 03-05-2023 End: 03-05-[address] Dallas Reed Work Phone: [facility] Work Phone: Start: 03-04-2023 End: 03-04-2023 Patient encounter procedure Dallas Reed MD Work Phone: [facility] [place] Comment on above: Primary hypertension (Primary Dx); Abdominal aortic aneurysm (AAA) without rupture, unspecified part (HCC) Start: 02-25-2023 End: 02-25-[address] Dallas Reed Work Phone: [facility] Work Phone: Start: 02-23-[address] Dallas Reed Work Phone: [facility] Start: 02-23-2023 End: 02-23-[address] Dallas Reed Work Phone: [facility] Work Phone: Start: 02-01-2023 End: 02-01-2023 Office outpatient visit 25 minutes Adrian Warner PA-C Work Phone: [facility] Comment on above: Acute maxillary sinu sitis, recurrence not specified (Primary Dx); Acute otitis media, right Start: 01-19-2023 Telephone encounter Lisa Rodriguez MD Work Phone: [facility] Comment on above: Medication Authoriza tion Start: 01-19-2023 Non-patient / Non-visit Dr. Ilana Reed Work Phone: [facility] Start: 01-19-2023 End: 01-19-[address] Dallas Reed Work Phone: [facility] Work Phone: Start: 01-19-2023 End: 01-19-[address] Dallas Reed Work Phone: [facility]-Cardiovascular Services Start: 01-18-2023 Orders Only Lisa Rodriguez MD Work Phone: [facility] Start: 01-15-2023 End: 01-15-2023 Subsequent hospital visit by physician Lisa Rodriguez MD Work Phone: Ambulatory Surgery Comment on above: Diarrhea, unspecifie d type [R19.7] Start: 01-13-2023 ambulatory Lisa Rodriguez MD Work Phone: Ambulatory Surgery Start: 01-07-2023 End: 01-07-2023 Patient encounter procedure Lisa Rodriguez MD Work Phone: [facility] Comment on above: Diarrhea, unspecifie d type Start: 12-30-2022 End: 12-30-2022 Patient encounter procedure Dallas Reed MD Work Phone: [facility] Comment on above: Diarrhea, unspecifie d type (Primary Dx); Chronic diastolic CHF (congestive heart failure) (HCC); Abdominal aortic aneurysm (AAA) without rupture, unspecified part (HCC) Start: 07-03-2022 End: 07-03-2022 Patient encounter procedure Gavin Rivero 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 Work Phone: [facility] Comment on above: Loose stools (Primar y Dx) Start: 05-26-2022 Refill Dallas jaramillo MD Work Phone: [facility] [place] Comment on above: Refill Request Start: 03-11-2022 Refill Dallas jaramillo MD Work Phone: [facility] [place] Comment on above: Refill Request Start: 02-18-2022 Telephone encounter Elsie Meera wallace 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 Work Phone: [facility] Comment on above: Results Start: 02-17-2022 End: 02-17-2022 Patient encounter procedure Nona Haider 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 Work Phone: [facility] Comment on above: Cough (Primary Dx); Acute upper respiratory infection, unspecified Start: 02-10-2022 End: 02-10-2022 Nursing evaluation of patient and report Mi Nurse Work Phone: [facility] Comment on above: BENIGN HYPERTENSION (Primary Dx) Start: 02-09-2022 ambulatory Denver Elizalde RN [facility] Comment on above: Community Monitoring Outreach (CHF/ CKD Telephonic Outreach) Start: 02-06-2022 ambulatory Denver Elizalde RN [facility] Comment on above: Community Monitoring Outreach (CHF/ CKD CDM Outreach) Start: 01-13-2022 End: 01-13-2022 Patient encounter procedure Dallas Reed MD Work Phone: [facility] Comment on above: Stage 3a chronic kid james disease (HCC) (Primary Dx); Chronic diastolic CHF (congestive heart failure) (HCC); Abdominal aortic aneurysm (AAA) without rupture (HCC); BENIGN HYPERTENSION; Other hyperlipidemia Start: 01-12-2022 Non-patient / Non-visit Dr. Ilana Reed Work Phone: [facility] Start: 01-12-2022 End: 01-12-[address] Dallas Reed Work Phone: [facility]Cardi[facility] Start: 12-08-2021 ambulatory Denver Elizalde RN [facility] Comment on above: Community Monitoring Outreach (CHF / CKD CDM Outreach ) Start: 11-12-2021 End: 11-12-[address] Dallas Reed Work Phone: [facility] Start: 07-19-2019 End: 07-19-2019 Subsequent hospital visit by physician Yariel Blas Work Phone: [facility] General Surgery Comment on above: Pain in right hip Start: 03-10-2018 Ambulatory [facility] Facility :[facility] Start: 01-14-2018 End: 01-14-2018 Ambulatory [facility] Facility:[facility] Start: 01-08-[address] Dallas Reed Work Phone: [facility] Start: 09-09-2017 End: 09-09-2017 Ambulatory [facility] Facility:[facility] Start: 01-09-2015 End: 03-15-2018 Patient encounter status Darya Borden APRN.CNP Work Phone: [facility] Procedures Date Procedure Procedure Detail Performing Clinician Start: 05-21-2025 Plain chest X-ray Dr. Aga Reed MD Work Phone: Start: 05-21-[address] Dallas Reed MD Work Phone: Start: 04-30-2025 Computed tomography of abdomen and [...] Comment: Speci men Type: BLOOD SPECIMENOrdering Facility: [facility] Address: [address] [place] [address] Performed By: #### T SCR ####CC [facility] [id number] [address] [place] Start: 11-28-2024 Urnls dip stick/tabl et reagent auto microscopy Dr. Dallas Reed MD Work Phone: Start: 11-28-2024 Computed tomography of abdomen and pelvis with intravenous contrast Dr. Dallas Reed MD Work Phone: Start: 11-28-[address] Dallas Reed MD Work Phone: Start: 11-28-2024 Ct abdomen & pelvis w/contrast material Darya Borden APRN.SPA ATTENDANT Work Phone: Start: 11-27-2024 Urnls dip stick/tabl et rgnt auto w/o microscopy Darya Borden APRN.SPA ATTENDANT Work Phone: Start: 09-07-2024 Adult depression screening assessment Darya Borden 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 SPECIALISTCherylSPA ATTENDANT Work Phone: Start: 02-09-2024 Radex shoulder compl [...] Basic metabolic pane l calcium total Brent Essence Work Phone: History of carotid endarterectomy S/P carotid endarterectomy right Shaun Kowalski MD Work Phone: History of carotid endarterectomy S/P carotid endarterectomy right Dallas Reed MD Work Phone: History of repair of inguinal hernia History of inguinal hernia repair Dr. Dallas Reed Work Phone: Comment on above: laparascopic Plan of Treatment Date Care Activity Detail Author Start: 03-16-2028 Diabetes Screening Diabetes Screening [facility] Start: 12-02-2027 Diabetes Screening Diabetes Screening [facility] Start: 11-30-2027 Diabetes Screening Diabetes Screening [facility] Start: 11-29-2027 Diabetes Screening Diabetes Screening [facility] Start: 11-28-2027 Diabetes Screening Diabetes Screening [facility] Start: 08-04-2027 Diabetes Screening Diabetes Screening [facility] Start: 05-31-2027 Diabetes Screening Diabetes Screening [facility] Start: 08-30-2026 Diabetes Screening Diabetes Screening [facility] Start: 03-16-2026 Creatinine measurement Creatinine Level [facility] Start: 03-16-2026 Potassium measurement Potassium Level [facility] Start: 03-12-2026 Thyroid stimulating hormone measurement TSH Level [facility] Start: 02-04-2026 DIABETES SCREEN DIABETES SCREEN [facility] Start: 02-04-2026 Diabetes Screening Diabetes Screening [facility] Start: 09-12-2025 End: 09-12-2025 Patient encounter procedure 09/12/2025 8:40 AM EST Office Visit [facility] [address] [place] [address] Dallas Reed MD [address] [place] [address] medicare wellness 6 months [facility] Comment on above: medicare wellness 6 months Start: 09-07-2025 Anxiety Screening Anxiety Screening [facility] Start: 09-07-2025 Depression Screening Depression Screening [facility] Start: 09-07-2025 Medicare Annual Wellness Visit Medicare Annual Wellness Visit [facility] Start: 09-07-2025 RSV Vaccine (1 - 1-dose 75+ series) RSV Vaccine (1 - 1-dose 75+ series) [facility] Comment on above: Postponed from 01/03/2015 (Declined at t his time) Start: 09-07-2025 Shingrix Vaccine (2 of 3) Shingrix Vaccine (2 of 3) [facility] Comment on above: Postponed from 10/13/2014 (Declined at t his time) Start: 09-07-2025 Urine microalbumin profile DTaP,Tdap,Td Vaccine (1 - Tdap) [facility] Comment on above: Postponed from 07/08/2005 (Declined at t his time) Start: 08-20-2025 End: 03-19-2026 CT Abdomen and Pelvis W contrast IV CTA abdomen pelvis angiogram w and/or wo IV contrast 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 Expected: 08/20/2025, Expires: 03/19/2026 [facility] Comment on above: Expected: 08/20/2025, Expires: Start: 07-17-2025 Covid-19 Vaccine ( season) Covid-19 Vaccine () [facility] Comment on above: Postponed from 05/21/2024 (Declined at t his time) Start: 07-17-2025 DIABETES SCREEN DIABETES SCREEN [facility] Start: 06-11-2025 End: 06-11-2025 Patient encounter procedure 06/11/2025 8:40 AM EDT Office Visit [facility] [address] [place] [address] Darya Borden, 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 [address] [place], [place] [address] follow up 4 weeks [facility] Comment on above: follow up 4 weeks Start: 05-22-2025 Chest 1 View (Portable) Chest 1 View (Portable) [facility] Start: 05-22-2025 XR Chest Single view [facility] Start: 05-21-2025 Influenza vaccination [facility] Start: 05-21-2025 Urinalysis complete panel - Urine [facility] Start: 05-21-2025 Verification routine [facility] Start: 05-21-2025 Admission procedure [facility] Start: 05-21-2025 Hospital admission, emergency, from emergency room, medical nature [facility] Start: 05-21-2025 T4 free measurement [facility] Start: 05-21-2025 [facility] Start: 05-18-2025 End: 08-17-2025 Cobalamin (Vitamin B12) [Mass/volume] in Serum or Plasma [facility] Comment on above: Expected: 05/18/2025, Expires: Start: 05-18-2025 End: 08-17-2025 Ferritin [Mass/volume] in Serum or Plasma [facility] Comment on above: Expected: 05/18/2025, Expires: Start: 05-18-2025 End: 08-17-2025 Folate [Mass/volume] in Serum or Plasma [facility] Comment on above: Expected: 05/18/2025, Expires: Start: 05-18-2025 End: 08-17-2025 Iron and Iron binding capacity panel - Serum or Plasma [facility] Comment on above: Expected: 05/18/2025, Expires: Start: 05-18-2025 End: 08-17-2025 Thyrotropin [Units/volume] in Serum or Plasma [facility] Work Phone: Comment on above: Expected: 05/18/2025, Expires: Start: 03-19-2025 Influenza vaccination [facility] Comment on above: Postponed from 05/21/2024 (Declined at t his time) Start: 03-16-2025 End: 03-16-2025 Patient encounter procedure 03/16/2025 11:00 AM EDT Appointment [facility] [address] [place] [address] [facility] Start: 03-12-2025 End: 06-11-2025 Thyrotropin [Units/volume] in Serum or Plasma [facility] Work Phone: Comment on above: Expected: 03/12/2025, Expires: Start: 03-12-2025 End: 06-11-2025 Thyroxine (T4) free [Mass/volume] in Serum or Plasma [facility] Comment on above: Expected: 03/12/2025, Expires: Start: 03-12-2025 End: 03-12-2025 Patient encounter procedure 03/12/2025 8:40 AM EDT Office Visit [facility] [address] [place] [address] Darya Borden, 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 [address] [place] [address] follow up 6 months [facility] Comment on above: follow up 6 months Start: 03-01-2025 End: 03-01-2026 Guidance for embolization of Vessels IR Embolization 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 Expected: 03/01/2025, Expires: 03/01/2026 [facility] Work Phone: Comment on above: Expected: 03/01/2025, Expires: Start: 02-14-2025 Elevation of head of bed [facility] Start: 02-14-2025 Patient education [facility] Start: 02-14-2025 End: 02-14-2025 Taking patient vital signs [facility] Start: 02-14-2025 Wound care [facility] Start: 02-14-2025 End: 02-14-2025 [facility] Start: 02-14-2025 Bedrest [facility] Start: 02-14-2025 End: 02-14-2025 Notification of physician [facility] Start: 02-14-2025 Patient discharge [facility] Start: 02-14-2025 Provision of activity privileges [facility] Start: 02-14-2025 End: 02-14-2025 Pulse taking [facility] Start: 01-13-2025 DIABETES SCREEN DIABETES SCREEN [facility] Start: 01-12-2025 [facility] Start: 12-22-2024 End: 12-22-2024 ambulatory 12/22/2024 9:15 AM EDT OT/PT/Speech Visit [facility] [address] [place] [address] Ramon Lee, PT [address] [place] [address] S00.03XD (ICD-10-CM) - Contusion of scalp, subsequent encounter [facility] Comment on above: S00.03XD (ICD-10-CM) - Contusion of scal p, subsequent encounter Start: 12-19-2024 End: 12-19-2024 ambulatory 12/19/2024 9:15 AM EDT OT/PT/Speech Visit [facility] [address] [place] [facility] [place] [address] Ramon Lee, PT [address] [facility] [place] [address] S00.03XD (ICD-10-CM) - Contusion of scalp, subsequent encounter [facility] Comment on above: S00.03XD (ICD-10-CM) - Contusion of scal p, subsequent encounter Start: 12-15-2024 End: 12-15-2024 ambulatory 12/15/2024 9:15 AM EDT OT/PT/Speech Visit [facility] [address] [place] [address] Ramon Lee, PT [address] [facility] [place] [address] S00.03XD (ICD-10-CM) - Contusion of scalp, subsequent encounter [facility] Comment on above: S00.03XD (ICD-10-CM) - Contusion of scal p, subsequent encounter Start: 12-12-2024 End: 12-12-2024 ambulatory 12/12/2024 9:15 AM EDT OT/PT/Speech Visit [facility] [address] [place] [facility] [place] [address] Ramon Lee, PT [address] [facility] [place] [address] S00.03XD (ICD-10-CM) - Contusion of scalp, subsequent encounter [facility] Comment on above: S00.03XD (ICD-10-CM) - Contusion of scal p, subsequent encounter Start: 12-08-2024 End: 12-08-2024 Patient encounter procedure 12/08/2024 11:40 AM EDT Office Visit [facility] [address] [place] [address] Dallas Reed MD [address] [place] [address] hospital discharge follow up. needs to see PCP or WEN in 7 days. [facility] Comment on above: hospital discharge follow up. needs to s ee PCP or WEN in 7 days. Start: 12-08-2024 End: 12-08-2024 ambulatory 12/08/2024 9:15 AM EDT OT/PT/Speech Visit [facility] [address] [facility] [place] [id number] Ramon Lee, PT [address] [place], [place] [id number] S00.03XD (ICD-10-CM) - Contusion of scalp, subsequent encounter [facility] Comment on above: S00.03XD (ICD-10-CM) - Contusion of scal p, subsequent encounter Start: 12-07-2024 End: 03-08-2025 Thyrotropin [Units/volume] in Serum or Plasma THYROID STIMULATING HORMONE Lab Routine Subclinical hypothyroidism Expected: 12/07/2024 (Approximate), Expires: 03/08/2025 [facility] Work Phone: Comment on above: Expected: 12/07/2024 (Approximate), Expi res: 03/08/2025 Start: 12-06-2024 End: 12-06-2024 ambulatory 12/06/2024 9:15 AM EDT OT/PT/Speech Visit [facility] [address] [facility] [place], [place] [id number] Ramon Lee, PT [address] [facility] [place] [address] S00.03XD (ICD-10-CM) - Contusion of scalp, subsequent encounter [facility] Comment on above: S00.03XD (ICD-10-CM) - Contusion of scal p, subsequent encounter Start: 11-29-2024 End: 11-29-2024 ambulatory 11/29/2024 7:45 AM EDT OT/PT/Speech Visit [facility] [address] [place] [place] [address] Ramon Lee, PT [address] [place] [address] S00.03XD (ICD-10-CM) - Contusion of scalp, subsequent encounter [facility] Comment on above: S00.03XD (ICD-10-CM) - Contusion of scal p, subsequent encounter Start: 11-28-2024 [facility] Start: 11-28-2024 End: 11-28-2024 Patient encounter procedure Cat Scan Comment on above: LLQ abdominal pain [R10.32] Start: 11-24-2024 End: 11-24-2024 ambulatory 11/24/2024 7:45 AM EST OT/PT/Speech Visit [facility] [address] [facility] [place] [address] Ramon Lee, PT [address] [place] [address] S00.03XD (ICD-10-CM) - Contusion of scalp, subsequent encounter [facility] Comment on above: S00.03XD (ICD-10-CM) - Contusion of scal p, subsequent encounter Start: 11-21-2024 End: 11-21-2024 ambulatory 11/21/2024 10:45 AM EST OT/PT/Speech Visit [facility] [address] [place] [address] Ramon Lee, PT [address] [facility] [place] [address] x: Contusion of scalp, subsequent encounter [S00.03XD]; Fall, subsequent encounter [W19.XXXD]; Proximal leg weakness [R29.898] [facility] Comment on above: x: Contusion of scalp, subsequent encoun ter [S00.03XD]; Fall, subsequent encounter [W19.XXXD]; Proximal leg weakness [R29.898] Start: 11-09-2024 End: 11-09-2024 Patient encounter procedure 11/09/2024 2:00 PM EST Office Visit [facility] [address] [place] [address] Dallas Reed MD [address] [place], [place] [address] express care follow up-hit head [facility] Comment on above: express care follow up-hit head Start: 09-20-2024 Advance Directive Discussion Advance Directive Discussion [facility] Start: 09-07-2024 End: 12-07-2024 Thyroxine (T4) free [Mass/volume] in Serum or Plasma [facility] Work Phone: Comment on above: Expected: 09/07/2024, Expires: Start: 09-07-2024 End: 12-07-2024 Triiodothyronine (T3) [Mass/volume] in Serum or Plasma [facility] Comment on above: Expected: 09/07/2024, Expires: Start: 09-07-2024 End: 09-07-2024 Patient encounter procedure 09/07/2024 10:00 AM EST Office Visit [facility] [address] [place] [address] Darya Borden, 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 [address] [place], [place] [id number] Medicare Wellness ; routine follow up [facility] Comment on above: Medicare Wellness ; routine follow up Start: 08-31-2024 [facility] Start: 08-31-2024 Anesthesia hernia repair upper abdomen nos ANES HRNA RPR UPR ABD NOS [facility] Start: 08-31-2024 RPR AA HRN 1ST < 3 CM RDC RPR AA HRN 1ST < 3 CM RDC [facility] Start: 08-31-2024 Patient discharge [facility] Start: 08-14-2024 End: 08-14-2024 Patient encounter procedure 08/14/2024 12:00 PM EST Office Visit [facility] [address] [place] [address] Dallas Reed MD [address] [place] [address] Medicare Wellness ; routine follow up [facility] Comment on above: Medicare Wellness ; routine follow up Start: 08-10-2024 Covid-19 Vaccine (#1) Covid-19 Vaccine (#1) [facility] Comment on above: Postponed from 1940 (Declined at t his time) Start: 08-10-2024 Covid-19 Vaccine ( season) Covid-19 Vaccine ( - season) [facility] Comment on above: Postponed from 05/21/2023 (Declined at t his time) Start: 08-10-2024 RSV Vaccine (1 - 1-dose 60+ series) RSV Vaccine (1 - 1-dose 60+ series) [facility] Comment on above: Postponed from 2000 (Declined at t his time) Start: 08-10-2024 RSV Vaccine (1 - 1-dose 75+ series) RSV Vaccine (1 - 1-dose 75+ series) [facility] Comment on above: Postponed from 01/03/2015 (Declined at t his time) Start: 08-10-2024 Shingrix Vaccine (2 of 3) Shingrix Vaccine (2 of 3) [facility] Comment on above: Postponed from 10/13/2014 (Declined at t his time) Start: 08-10-2024 Urine microalbumin profile DTaP,Tdap,Td Vaccine (1 - Tdap) [facility] Comment on above: Postponed from 07/08/2005 (Declined at t his time) Start: 07-19-2024 End: 10-18-2024 CBC panel - Blood by Automated count COMPLETE BLOOD COUNT Lab Routine Thrombocytopenia (HCC) Expected: 07/19/2024, Expires: 10/18/2024 [facility] Work Phone: Comment on above: Expected: 07/19/2024, Expires: Start: 07-19-2024 End: 10-18-2024 Comprehensive metabolic 2000 panel - Serum or Plasma COMPREHENSIVE METABOLIC PANEL Lab Routine Stage 3b chronic kidney disease (HCC) Expected: 07/19/2024, Expires: 10/18/2024 [facility] Comment on above: Expected: 07/19/2024, Expires: Start: 07-19-2024 End: 10-18-2024 Lipid 1996 panel - Serum or Plasma LIPID PANEL BASIC Lab Routine Mixed hyperlipidemia Expected: 07/19/2024, Expires: 10/18/2024 [facility] Comment on above: Expected: 07/19/2024, Expires: Start: 07-19-2024 End: 10-18-2024 Thyrotropin [Units/volume] in Serum or Plasma THYROID STIMULATING HORMONE Lab Routine Abnormal TSH Mixed hyperlipidemia Expected: 07/19/2024, Expires: 10/18/2024 [facility] Comment on above: Expected: 07/19/2024, Expires: Start: 07-19-2024 End: 07-19-2024 ambulatory 07/19/2024 7:30 AM EDT Results Only [facility] [address] [place] [address] [facility] Start: 07-02-2024 DIABETES SCREEN DIABETES SCREEN [facility] Start: 05-23-2024 End: 08-22-2024 CBC W Auto Differential panel - Blood COMPLETE BLOOD COUNT AND DIFFERENTIAL Lab Routine BENIGN HYPERTENSION Weight loss Fatigue, unspecified type Expected: 05/23/2024, Expires: 08/22/2024 [facility] Work Phone: Comment on above: Expected: 05/23/2024, Expires: Start: 05-23-2024 End: 08-22-2024 Cobalamin (Vitamin B12) [Mass/volume] in Serum or Plasma VITAMIN B12 Lab Routine BENIGN HYPERTENSION Weight loss Fatigue, unspecified type History of anemia Expected: 05/23/2024, Expires: 08/22/2024 [facility] Comment on above: Expected: 05/23/2024, Expires: Start: 05-23-2024 End: 08-22-2024 Comprehensive metabolic 2000 panel - Serum or Plasma COMPREHENSIVE METABOLIC PANEL Lab Routine BENIGN HYPERTENSION Weight loss Fatigue, unspecified type Expected: 05/23/2024, Expires: 08/22/2024 [facility] Comment on above: Expected: 05/23/2024, Expires: Start: 05-23-2024 End: 08-22-2024 Ferritin [Mass/volume] in Serum or Plasma FERRITIN Lab Routine BENIGN HYPERTENSION Weight loss Fatigue, unspecified type History of anemia Expected: 05/23/2024, Expires: 08/22/2024 [facility] Comment on above: Expected: 05/23/2024, Expires: Start: 05-23-2024 End: 08-22-2024 Iron and Iron binding capacity panel - Serum or Plasma IRON AND TIBC Lab Routine BENIGN HYPERTENSION Weight loss Fatigue, unspecified type History of anemia Expected: 05/23/2024, Expires: 08/22/2024 [facility] Comment on above: Expected: 05/23/2024, Expires: Start: 05-23-2024 End: 08-22-2024 Thyrotropin [Units/volume] in Serum or Plasma THYROID STIMULATING HORMONE Lab Routine BENIGN HYPERTENSION Fatigue, unspecified type Expected: 05/23/2024, Expires: 08/22/2024 [facility] Comment on above: Expected: 05/23/2024, Expires: Start: 05-23-2024 End: 08-22-2024 Urinalysis complete panel - Urine URINALYSIS, WITH MICROSCOPIC Lab Routine Weight loss Fatigue, unspecified type Expected: 05/23/2024, Expires: 08/22/2024 [facility] Comment on above: Expected: 05/23/2024, Expires: Start: 05-21-2024 Covid-19 Vaccine () Covid-19 Vaccine () [facility] Start: 05-21-2024 Covid-19 Vaccine ( season) Covid-19 Vaccine () [facility] Start: 05-21-2024 Influenza vaccination [facility] Start: 05-15-2024 End: 05-15-2024 Patient encounter procedure 05/15/2024 11:00 AM EDT Office Visit Orthopaedics [address] [place] [address] Izzy Guadalupe PA-C [address] [place] [address] Acute pain of both shoulders [M25.511, M25.512] Orthopaedics Comment on above: Acute pain of both shoulders [M25.511, M 25.512] Start: 01-17-2024 End: 01-17-2024 Patient encounter procedure [facility] Comment on above: Endoleak aortic graft Start: 12-27-2023 Following clinical pathway protocol [facility] Start: 10-16-2023 Influenza vaccination [facility] Comment on above: Postponed from 05/21/2023 (Declined at t his time) Start: 09-20-2023 Advance Directive Discussion Advance Directive Discussion [facility] Start: 09-20-2023 Behavioral Health Screening Behavioral Health Screening [facility] Start: 09-20-2023 Depression Assessment Depression Assessment [facility] Start: 07-15-2023 COVID-19 VACCINE (#1) COVID-19 VACCINE (#1) [facility] Comment on above: Postponed from 1940 (Declined at t his time) Start: 07-15-2023 SHINGRIX VACCINE (2 of 3) SHINGRIX VACCINE (2 of 3) [facility] Comment on above: Postponed from 10/13/2014 (Declined at t his time) Start: 07-15-2023 Urine microalbumin profile [facility] Comment on above: Postponed from 07/08/2005 (Declined at t his time) Start: 05-26-2023 Following clinical pathway protocol [facility] Start: 05-21-2023 Influenza vaccination [facility] Start: 04-08-2023 Patient discharge [facility] Start: 04-08-2023 Urinary bladder residual urine study [facility] Start: 04-08-2023 [facility] Start: 04-08-2023 Removal of urinary catheter [facility] Start: 04-07-2023 Oxygen therapy [facility] Start: 04-07-2023 Following clinical pathway protocol [facility] Start: 04-07-2023 End: 04-07-2023 Bedrest [facility] Start: 04-07-2023 Elevation of head of bed [facility] Start: 04-07-2023 Incentive spirometry [facility] Start: 04-07-2023 Insertion of catheter into artery [facility] Start: 04-07-2023 Measuring intake and output [facility] Start: 04-07-2023 Neurovascular assessment [facility] Start: 04-07-2023 Nil by mouth [facility] Start: 04-07-2023 Notification of physician [facility] Start: 04-07-2023 Patient education [facility] Start: 04-07-2023 Tobacco use cessation education [facility] Start: 04-07-2023 Vital signs measurements [facility] Start: 04-07-2023 [facility] Start: 04-07-2023 [facility] Start: 04-07-2023 Admission procedure [facility] Start: 09-20-2022 ADVANCE DIRECTIVE DISCUSSION ADVANCE DIRECTIVE DISCUSSION [facility] Start: 09-20-2022 DEPRESSION ASSESSMENT DEPRESSION ASSESSMENT [facility] Start: 07-15-2022 End: 09-14-2022 CBC panel - Blood by Automated count CBC Lab Routine Stage 3a chronic kidney disease (HCC) Expected: 07/15/2022, Expires: 09/14/2022 [facility] Work Phone: Comment on above: Expected: 07/15/2022, Expires: Start: 07-15-2022 End: 09-14-2022 Comprehensive metabolic 2000 panel - Serum or Plasma COMP METABOLIC PANEL Lab Routine Chronic diastolic CHF (congestive heart failure) (HCC) Expected: 07/15/2022, Expires: 09/14/2022 [facility] Work Phone: Comment on above: Expected: 07/15/2022, Expires: 2 Start: 07-15-2022 End: 09-14-2022 LIPID PANEL BASIC LIPID PANEL BASIC Lab Routine Other hyperlipidemia Expected: 07/15/2022, Expires: 09/14/2022 [facility] Work Phone: Comment on above: Expected: 07/15/2022, Expires: 2 Start: 07-09-2022 COVID-19 VACCINE (#1) COVID-19 VACCINE (#1) [facility] Comment on above: Postponed from 01/03/1945 (Declined at t his time) Postponed from 07/05 (Declined at this time) Start: 07-09-2022 COVID-19 VACCINE (1) COVID-19 VACCINE (1) [facility] Comment on above: Postponed from 01/03/1945 (Declined at t his time) Start: 07-09-2022 SHINGRIX VACCINE (2 of 3) SHINGRIX VACCINE (2 of 3) [facility] Comment on above: Postponed from 10/13/2014 (Declined at t his time) Start: 07-09-2022 Urine microalbumin profile DTAP,TDAP,TD (1 - Tdap) [facility] Comment on above: Postponed from 07/08/2005 (Declined at t his time) Start: 05-21-2022 Influenza vaccination [facility] Start: 03-19-2022 Influenza vaccination INFLUENZA (#1) [facility] Comment on above: Postponed from 05/21/2021 (Declined at t his time) Start: 02-17-2022 End: 03-03-2022 Influenza virus A and B RNA and SARS-CoV-2 (COVID-19) N gene panel - Respiratory specimen by ELIZABETH with probe detection COVID WITH FLUA+B, ROUTINE Microbiology Routine Cough Acute upper respiratory infection, unspecified Expected: 02/17/2022, Expires: 03/03/2022 [facility] Work Phone: Comment on above: Expected: 02/17/2022, Expires: 2 Start: 01-13-2022 End: 03-15-2022 Basic metabolic 2000 panel - Serum or Plasma [facility] Work Phone: Comment on above: Expected: 01/13/2022, Expires: 2 Start: 09-20-2021 ADVANCE DIRECTIVE DISCUSSION ADVANCE DIRECTIVE DISCUSSION [facility] Start: 09-20-2021 DEPRESSION ASSESSMENT DEPRESSION ASSESSMENT [facility] Start: 07-19-2020 Creatinine measurement Creatinine Level [facility] Start: 07-19-2020 Potassium measurement Potassium Level [facility] Start: 07-04-2019 Annual Wellness Visit (AWV) Annual Wellness Visit (AWV) [place], [place] Start: 05-21-2019 Influenza vaccination Flu vaccine (#1) [place], [place] Start: 01-03-2015 RSV Immunization for Adults (1 - 1-dose 75+ series) RSV Immunization for Adults (1 - 1-dose 75+ series) [facility] Start: 01-03-2015 RSV Vaccine (1 - 1-dose 75+ series) RSV Vaccine (1 - 1-dose 75+ series) [facility] Start: 10-13-2014 Shingles Vaccine (2 of 3) Shingles Vaccine (2 of 3) [place] Start: 10-13-2014 Shingrix Vaccine (2 of 3) Shingrix Vaccine (2 of 3) [facility] Start: 10-13-2014 Zoster Vaccines (2 of 3) Zoster Vaccines (2 of 3) [facility] Start: 07-08-2005 DTaP/Tdap/Td Vaccines (1 - Tdap) DTaP/Tdap/Td Vaccines (1 - Tdap) [facility] Start: 07-08-2005 Urine microalbumin profile DTaP,Tdap,Td Vaccine (1 - Tdap) [facility] Start: 01-03-1959 DTaP/Tdap/Td vaccine (1 - Tdap) DTaP/Tdap/Td vaccine (1 - Tdap) [place], [place] Start: 01-03-1958 Anxiety Screening Anxiety Screening [facility] Start: 01-03-1958 Depression Screening Depression Screening [facility] Start: 1952 Depression Screening Depression Screening [facility] Start: 1940 Creatinine monitoring Creatinine monitoring [place], [place] Start: 1940 Echocardiography Echocardiogram [facility] Start: 1940 Lipid panel Lipid Panel [facility] Start: 1940 Medicare Annual Wellness (AWV) Medicare Annual Wellness (AWV) [facility] Start: 1940 Potassium monitoring Potassium monitoring [facility] End: 07-19-2019 Anaerobic Culture Anaerobic Culture Microbiology Routine Once for 1 Occurrences starting 07/19/2019 until 07/19/2019 [facility] Comment on above: Once for 1 Occurrences starting 07/19/20 until 07/19/2019 Anaerobic Culture Anaerobic Cult ure Microbiology Routine 07/19/2019 9[facility]00 [facility] by Culture BACTERIAL CULTURE, URINE Microbiology Routine Left lower quadrant abdominal pain 11/27/2024 11:46 AM EDT [facility] Basic metabolic 2008 panel with ionized calcium - Serum or Plasma [facility] Blood chemistry [facility] End: 07-19-2019 Body Fluid Culture Body Fluid Culture Microbiology Routine Once for 1 Occurrences starting 07/19/2019 until 07/19/2019 [facility] Comment on above: Once for 1 Occurrences starting 07/19/20 until 07/19/2019 Body Fluid Culture Body Fluid Cu lture Microbiology Routine 07/19/2019 9:00 AM EDT [facility] Calprotectin [Mass/m ass] in Stool CALPROTECTIN,FECAL Lab Routine Diarrhea, unspecified type Ordered: 12/30/2022 [facility] Work Phone: Comment on above: Ordered: 12/30/2022 Cholesterol [Mass/vo lume] in Serum or Plasma [facility] Cholesterol in HDL [Mass/volume] in Serum or Plasma [facility] Clostridioides diffi cile toxin genes [Presence] in Stool by ELIZABETH with probe detection C. DIFFICILE PCR Lab Routine Loose stools Ordered: 07/03/2022 [facility] Work Phone: Comment on above: Ordered: 07/03/2022 Clostridioides diffi cile toxin genes [Presence] in Stool by ELIZABETH with probe detection C. DIFFICILE PCR Lab Routine Diarrhea, unspecified type Ordered: 12/30/2022 [facility] Work Phone: Comment on above: Ordered: 12/30/2022 End: 01-08-2024 COLONOSCOPY DIAGNOSTIC COLONOSCOPY DIAGNOSTIC Endoscopy Routine Diarrhea, unspecified type 1 Occurrences starting 01/07/2023 until 01/08/2024 [facility] Work Phone: Comment on above: 1 Occurrences starting 01/07/2023 until 01/08/2024 CT Abdomen and Pelvis [facility] CT Abdomen and Pelvis [facility] End: 12-27-2025 CT Abdomen and Pelvis W contrast IV CT ABD/PEL W IVCON Radiology STAT Left lower quadrant abdominal pain 1 Occurrences starting 11/27/2024 until 12/27/2025 [facility] Work Phone: Comment on above: 1 Occurrences starting 11/27/2024 until 12/27/2025 End: 02-03-2025 CTA Abdominal vessels and Pelvis vessels WO and W contrast IV CTA ABD/PEL WO/W IVCON Radiology Routine Encounter for other preprocedural examination 1 Occurrences starting 01/05/2024 until 02/03/2025 [facility] Work Phone: Comment on above: 1 Occurrences starting 01/05/2024 until 02/03/2025 End: 02-03-2025 CTA Chest vessels WO and W contrast IV CTA CHEST (NONGATED) WO/W IVCON Radiology Routine Encounter for other preprocedural examination 1 Occurrences starting 01/05/2024 until 02/03/2025 [facility] Work Phone: Comment on above: 1 Occurrences starting 01/05/2024 until 02/03/2025 End: 07-19-2019 EKG 12 Lead EKG 12 Lead ECG STAT One Time for 1 Occurrences starting 07/19/2019 until 07/19/2019 [facility], [place] Comment on above: One Time for 1 Occurrences starting 06/22 until 07/19/2019 ENTERIC BACTERIAL PA SKYE BY PCR ENTERIC BACTERIAL PANEL BY PCR Lab Routine Loose stools Ordered: 07/03/2022 [facility] Work Phone: Comment on above: Ordered: 07/03/2022 Erythrocyte mean corpuscular volume determination [facility] FECAL LACTOFERRIN/LEUKOCYTES FECAL LACTOFERRIN/LEUKOCYTES Lab Routine Diarrhea, unspecified type Ordered: 12/30/2022 [facility] Work Phone: Comment on above: Ordered: 12/30/2022 Glomerular filtratio n rate/1.73 sq M.predicted [Volume Rate/Area] in Serum, Plasma or Blood by Creatinine-based formula (CKD-EPI) [facility] End: 03-16-2025 Guidance for embolization of Vessels [facility] Work Phone: Comment on above: Once for 1 Occurrences starting 03/16/20 until 03/16/2025 Hematocrit [Volume Fraction] of Blood [facility] Hemoglobin [Mass/vol ume] in Blood [facility] Hemoglobin.gastroint estin al.lower [Presence] in Stool by Immunoassay IMMUNOCHEMICAL FECAL OCCULT BLOOD TEST Lab Routine BENIGN HYPERTENSION Weight loss Fatigue, unspecified type Ordered: 05/23/2024 [facility] Comment on above: Ordered: 05/23/2024 Leukocytes [#/volume ] in Blood [facility] Low density lipoprot ein cholesterol measurement [facility] Magnesium measurement [facility] Mean corpuscular hemoglobin concentration determination [facility] Mean corpuscular hemoglobin determination [facility] Natriuretic peptide. B prohormone N-Terminal [Mass/volume] in Serum or Plasma [facility] Neutrophil count [facility] Neutrophil percent differential count [facility] Ova and parasites identified in Unspecified specimen by Light microscopy OVA + PARA MICROSCOPIC Microbiology Routine Loose stools Ordered: 07/03/2022 [facility] Work Phone: Comment on above: Ordered: 07/03/2022 Patient Education ED Diverticulitis [facility] Work Phone: Patient referral [facility] Work Phone: Platelets [#/volume] in Blood [facility] Red blood cell count [facility] Red cell distributio n width determination [facility] Total cholesterol:HD L ratio measurement [facility] Triglycerides measurement [facility] Troponin T.cardiac [Mass/volume] in Serum or Plasma by High sensitivity method [facility] VLDL cholesterol measurement [facility] Immunizations Immunization Date Immunization Notes Care Provider Fa [facility] 07-13-2020 influenza (HD-IIV4) vaccine, age 65+ yr, high dose, quadrivalent, PF (FLUZONE HIGH-DOSE) Darya Older 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 Work Phone: [facility] 07-13-2020 influenza, high dose seasonal, preservative-free Goffglendy Elizalde RN [facility] 07-13-2020 influenza virus vacc ine, unspecified formulation Dallas Reed MD Work Phone: [facility] 07-21-2019 influenza, high dose seasonal, preservative-free Goff Fide RN [facility] Work Phone: 08-10-2018 influenza, high dose seasonal, preservative-free Goff Fide RN [facility] Work Phone: 02-10-2018 pneumococcal conjuga te vaccine, 13 valent Denver Elizalde RN [facility] Work Phone: 07-30-2017 influenza, high dose seasonal, preservative-free Goffglendy Mathewa RN [facility] 07-21-2016 influenza, high dose seasonal, preservative-free Goff Fide RN [facility] 08-20-2015 influenza, high dose seasonal, preservative-free Goff Fide RN [facility] Work Phone: 08-20-2015 influenza, injectabl e, quadrivalent, preservative free Dr. Dallas Reed Work Phone: [facility] 08-20-2015 influenza, seasonal, injectable Dr. 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 Work Phone: [facility] 08-18-2014 zoster vaccine, live Denver Elizalde RN [facility] Work Phone: 07-10-2014 influenza, high dose seasonal, preservative-free Goff Fide RN [facility] Work Phone: 07-10-2014 influenza, seasonal, injectable Denver Elizalde RN [facility] Work Phone: 07-10-2014 pneumococcal polysaccharide vaccine, 23 valent Denver Elizalde RN [facility] Work Phone: 07-15-2010 influenza virus vacc ine, whole virus Denver Elizalde RN [facility] Work Phone: 09-18-2009 novel influenza-H1N1 -09, preservative-free, injectable Denver Elizalde RN [facility] Work Phone: 08-07-2009 influenza virus vacc ine, unspecified formulation Denver Elizalde RN [facility] 08-04-2007 influenza virus vacc ine, unspecified formulation Denver Elizalde RN [facility] Work Phone: 07-26-2006 influenza virus vacc ine, unspecified formulation Denver Elizalde RN [facility] 07-07-2005 tetanus and diphther ia toxoids, adsorbed, preservative free, for adult use (2 Lf of tetanus toxoid and 2 Lf of diphtheria toxoid) Denver Eilzalde RN [facility] Work Phone: 06-20-2004 pneumococcal polysaccharide vaccine, 23 valent Denver Elizalde RN [facility] Payers Date Payer Category Payer Unknown [id number] 2024 Medicare [id number] 2024 Self-pay [id number] 2018 Medicare [id number] 2017 Commercial Managed C are - HMO MMO SUPERMED ACCESS [id number] 2012 Private Health Insurance [id number] 2012 Unknown [facility] [id number] 2012-Present [address] [place] [address] Indemnity [id number] 2012 Unknown [id number] 1.13.159.2 .[id number] 2012 Unknown [id number] 2004 Medicare MEDICARE MEDICAR E A AND B [id number] 2004-Present [phone] [address] [address] [place] [address] Medicare [id number] 2004 Medicare [id number]. 1.13.159.2 .[id number] 2004 Medicare [id number] Medicare [id number] Unknown [id number] 2.840.1.655654.3.579.2 .462 Unknown [id number] 2.16.840.1.941984.3.579.2 .462 Unknown [id number] 2.16.840.1.010229.3.579.2 .462 Unknown [id number] 2.16.840.1.984313.3.579.2 .462 Unknown [id number] 2.16.840.1.395576.3.579.2 .462 Unknown [id number] 2.16.840.1.445752.3.579.2 .462 Unknown [id number] 2.16.840.1.474206.3.579.2 .462 Unknown [id number] 2.16.840.1.947554.3.579.2 .462 Unknown [id number] 2.16.840.1.003141.3.579.2 .462 Unknown [id number] 2.16.840.1.861476.3.579.2 .462 Unknown [id number] 2.16.840.1.161739.3.579.2 .462 Unknown [id number] 2.16.840.1.168802.3.579.2 .462 Unknown [id number] 2.16840.1.435122.3.579.2 .462 Unknown [id number] 2.16840.1.490888.3.579.2 .462 Unknown [id number] 2.16840.1.148791.3.579.2 .462 Unknown [id number] 2.16.840.1.896342.3.579.2 .462 Unknown [id number] 2.16.840.1.248813.3.579.2 .462 Unknown [id number] 2.840.1.664380.3.579.2 .462 Unknown [id number] 2.16840.1.106883.3.579.2 .462 Unknown [id number] 2.16840.1.702925.3.579.2 .462 Unknown [id number] 2.16840.1.484690.3.579.2 .462 Unknown [id number] 2.16840.1.843021.3.579.2 .462 Social History Date Type Detail Facility Start: 07-19-2019 End: 05-21-2025 Tobacco smoking status NHIS Former smoker [facility] Work Phone: Start: 07-19-2019 End: 02-04-2023 Alcohol intake Not Currently [facility] Start: 1940 Sex Assigned At Not on file [facility] [place] Start: 09-20-1962 End: 09-20-1964 History of tobacco use Current smoker [facility] Work Phone: Start: 09-20-1962 End: 09-20-1964 History of tobacco use Cigarette Smoker [facility] Work Phone: Start: 02-10-2018 End: 02-04-2023 Cigarettes smoked current (pack per day) - Reported 1 [facility] Start: 02-10-2018 End: 05-23-2024 Tobacco use and exposure Smokeless tobacco non-user [facility] Work Phone: Start: 09-14-2021 End: 05-18-2025 Alcohol intake Current non-drinker of alcohol (finding) [facility] Start: 07-04-2021 History SDOH Alcohol Frequency 1 [facility] Start: 05-31-2020 History SDOH Alcohol Binge 99 [facility] Start: 07-04-2021 History SDOH Social Connections Phone 3 [facility] Start: 07-04-2021 History SDOH Social Connections Get Together 2 [facility] Start: 07-04-2021 History SDOH Social Connections Meetings 98 [facility] Start: 07-04-2021 History SDOH Financial 5 [facility] Start: 07-04-2021 Education 12 [facility] Start: 01-03-2022 End: 07-03-2022 Exposure to SARS-CoV-2 (event) Not sure [facility] Work Phone: Start: 11-12-2021 End: 06-25-2023 Tobacco smoking status NHIS Unknown if ever smoked [facility] Start: 10-13-2016 None [facility] Start: 10-13-2016 Spouse/ Significant Other [facility] Start: 01-20-2021 Cigarettes [facility] Start: 1940 Sex Assigned At Male [facility] Do you belong to any clubs or organizations such as taoist groups, unions, fraternal or athletic groups, or school groups? Yes [facility] Start: 08-21-2012 How often do you attend meetings of the clubs or organizations you belong to? Patient refused [facility] Are you now , , , , never or living with a partner? [facility] How often to you hav e a drink containing alcohol? Never [facility] Do you feel stress - tense, restless, nervous, or anxious, or unable to sleep at night because your mind is troubled all the time - these days [OSQ] Not at all [facility] (I/We) worried wheth er (my/our) food would run out before (I/we) got money to buy more. Never true [facility] In the past 12 month s, was there a time when you were not able to pay the mortgage or rent on time? No [facility] Start: 04-20-2022 End: 11-28-2024 Sex Male (finding) [facility] How hard is it for y ou to pay for the very basics like food, housing, medical care, and heating Not very hard [facility] Start: 09-08-2022 End: 03-19-2025 Alcoholic beverage intake Ex-drinker (finding) [facility] [facility] Equipment Procedure Code Equipment Code Equipment Origin al Text Equipment Identifier Dates Repair, hernia, ventral, with mesh insertion ([id number]) Extra-gynaecological surgical mesh, composite-polymer ()[id number] FDA Start: 08-31-2024 Evacuation, hematoma SEALANT,FLOSEAL HEMOSTATIC [...] SUTURE,LIGA CLIP SM LT-100 FDA Start: 01-20-2021 ([id number]) Abdominal aorta endovascular stent-graft ()[id number] FDA Start: 04-07-2023 Abdominal aorta endovascular stent-graft ()[id number] FDA Start: 04-07-2023 Abdominal aorta endovascular stent-graft ()[id number] FDA Start: 04-07-2023 Femoral vessel s uture implantation set ()[id number] FDA Start: 04-07-2023 Kit Embo Avm Gi x 18 - [id number] Start: 03-16-2025 Coil Embo Embold 20mm 50cm - [id number] Start: 03-16-2025 Coil Embo Embold 22mm 60cm - [id number] Start: 03-16-2025 Device Clsr Mynx control chemist 6-7fr Grn - [id number] Start: 03-16-2025 Goals Date Patient Goal [...] serious difficulty hearing No 12/01/2024 1:58 PM EDT Lori Sesay, CHRISTIANO No [facility] 12-01-2024 Are you blind, or do you have serious difficulty seeing, even when wearing glasses No 12/01/2024 1:58 PM EDT Lori Sesay, CHRISTIANO No [facility] 12-01-2024 Do you have serious difficulty walking or climbing stairs No 12/01/2024 1:58 PM EDT Lori Sesay, CHRISTIANO No [facility] 12-01-2024 Do you have difficul ty dressing or bathing No 12/01/2024 1:58 PM EDT Lori Sesay, CHRISTIANO [facility] 12-01-2024 Because of a physica l, mental, or emotional condition, do you have difficulty doing errands alone such as visiting a physician's office or shopping No 12/01/2024 1:58 PM EDT Lori Sesay, CHRISTIANO No [facility] 08-31-2024 Functional status Ambulates [facility] Work Phone: 04-08-2023 Functional status Activity Abili ty Standby Assist [facility] Work Phone: 04-08-2023 Functional status Patient Activi ty Chair;Stand with Urinal [facility] Work Phone: 04-08-2023 Functional status None [facility] Work Phone: 01-16-2015 Are you deaf, or do you have serious difficulty hearing No 01/16/2015 3:35 PM EDT Sara Cassidy LPN No [facility] 01-16-2015 Are you blind, or do you have serious difficulty seeing, even when wearing glasses No 01/16/2015 3:35 PM EDT Sara Cassidy LPN No [facility] 01-16-2015 Do you have serious difficulty walking or climbing stairs No 01/16/2015 3:35 PM EDT Sara Cassidy LPN No [facility] 01-16-2015 Do you have difficul ty dressing or bathing No 01/16/2015 3:35 PM EDT Sara Cassidy LPN No [facility] 01-16-2015 Because of a physica l, mental, or emotional condition, do you have difficulty doing errands alone such as visiting a physician's office or shopping No 01/16/2015 3:35 PM EDT Sara Cassidy LPN No [facility] Mental Status Date Assessment Result Facility 05-21-2025 Cognitive function Level Of Cons ciousness Awake;Alert;Appropriate [facility] Work Phone: 12-01-2024 Because of a physica l, mental, or emotional condition, do you have serious difficulty concentrating, remembering, or making decisions No 12/01/2024 1:58 PM EDT Lori Sesay RN No [facility] 11-28-2024 Cognitive function Level Of Cons ciousness Awake;Alert;Appropriate [facility] Work Phone: 08-31-2024 Cognitive function Voice/Name [facility] Work Phone: 12-27-2023 Cognitive function Voice/Name [facility] Work Phone: 05-26-2023 Cognitive function Awake;Alert;Appropriat e [facility] Work Phone: 04-08-2023 Cognitive function Voice/Name;Touch/Shaki ng [facility] Work Phone: 02-25-2023 Cognitive function Voice/Name [facility] Work Phone: 01-16-2015 Because of a physica l, mental, or emotional condition, do you have serious difficulty concentrating, remembering, or making decisions No 01/16/2015 3:35 PM EDT Sara Cassidy LPN No [facility] Clinical Notes 08-26-2017 to 05-21-2025 Darya Borden M, 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 - 05/18/2025 10:09 AM EDTPatient Luci Salazar RN - 04/03/2025 12:29 PM EDTTelephone Encounter - Venessa Grant RN - 03/28/2025 10:26 AM EDTAttachments Note Date & Type Note Facility 05-21-2025 Radiology Diagnostic study note [facility] Imaging Services [address] [place], [place] [address] Chest 1 View (Portable) MR#: [id number] Acct: [id number] Name: LEANA CAMEJO Rep #: [id number] : 1940 M 85 From: Christina Shaffer MD PCP: Dr. Dallas Reed MD Status: R EG ER Study:Chest 1 View (Portable) Date of Exam: 05/21/25 Exam# [id number] Ordering Dr: Akila Nelson DO PROCEDURE: CHEST 1 VIEW (PORTABLE) 05/21/2025 REASON FOR EXAM: CHEST PAIN TECHNIQUE: Frontal view of the chest. COMPARISON: 07/11/2024. FINDINGS: Increased mild central pulmonary venous congestion. The lungs are emphysematous, unchanged. Mild increase in bilateral basilar atelectatic pulmonary changes. There is no demonstrated pleural abnormality. Enlarged cardiac silhouette. Normal mediastinum and bee. Normal visualized pulmonary arteries. Atheromatous plaques of the visualized aortic arch and descending thoracic aorta. Diffuse spondylosis of the visualized thoracic spine. Normal visualized ribs, clavicles. Degenerative joint disease. There is no demonstrated abnormality of the visualized soft tissue structures ofthe upper abdomen. RAD/Chest 1 View (Portable) IMPRESSION: Increased mild central pulmonary venous congestion. Unchanged emphysema. Mild increase in bilateral basilar atelectatic pulmonary changes. [facility] CC: Dr. Veena Nelson DO; Dr. Dallas Reed MD ~ Front Office Medical Assistant: Signed [facility] 05-18-2025 Note [facility] 05-18-2025 History of Presen t illness Narrative CC: Patient presents with: Fatigue: No energy x 2 months HPI Recording using ambient AI software for draft documentation of the visit was discussed with the patient/authorized parts counter representative; all questions welcomed and answered. Patient/authorized parts counter representative agreed to proceed The patient is [...] night. - He was evaluated by his yard clerk who increased his Lasix to 80 mg daiy for a few days - Notes improvement in dyspnea and resolution of palpitations with diuretic use Anemia: - Recent aortic surgery on March 16 at [facility] by Dr. Bobo. - Post operative anemia, most recent CBC in February revealed improved anemia but has not been rechecked since then Subclinical hypothyroidism: - Taking levothyroxine as prescribed, denies missing doses Review of Systems See HPI PAST MEDICAL HISTORY Diagnosis Date Abdominal aortic aneurysm (AAA) without rupture 08/26/201708/2017: 3.7 cm Anemia Chronic diastolic CHF (congestive heart failure) ([facility]) 10/20/[address] Montes CKD (chronic kidney disease) stage 3, GFR 30-59 ml/min ([facility]) 02/20/2014 Collagenous colitis 02/04/2023 COVID-19 09/12/2021 DDD [...] 2 LIMB 04/07/2023 AAA stent graft repair, [facility] RPR RECURRENT INCISIONAL HERNIA REDUCIBLE 07/29/2015 PAST SURGICAL HISTORY OF 09/09/2015 left total knee arthroplasty PAST SURGICAL HISTORY OF 09/15/2017 micro-disectomy L4-L5, with microcompression bilaterally. PAST SURGICAL HISTORY OF Right 12/16/2018 Repair of complex lateral meniscus tear, Right knee REPAIR UMBILICAL HERNIA 1980 Dr. Henry STRESS TEST 09/03/2017 normal ALLERGIES Clonidine, Crestor [Rosuvastatin Calcium], Lipitor [Atorvastatin Calcium], Lisinopril, Nifedipine, and Statins [Bqqqalx-Nlu-Cuo Reductase Inhibitors] MEDICATIONS losartan (COZAAR) 100 mg [...] (FLONASE) 50 mcg/actuation nasal spray Use 1 Metaline in each nostril daily at bedtime. aspirin [...] Patient agreeable to treatment plan. 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 - Have blood drawn today for a complete blood count (to check for anemia) and a thyroid level documented in this encounter [facility] 05-01-2025 Radiology Diagnostic study note [facility] Imaging Services [address] [place], [place] [address] CTA Abd/Pelvis W/WO Contrast MR#: [id number] Acct: [id number] Name: LEANA CAMEJO Rep #: [id number] : 1940 M 85 From: Gordo Alcaraz MD PCP: Dr. Dallas Reed MD Status: R EG CLI Study:CTA Abd/Pelvis W/WO Contrast Date of Ex am: 04/30/25 Exam# [id number] Ordering Dr: Villa Hawk MD PROCEDURE: CTA [...] abdominal aorta. 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 The patient is status post endoluminal stent grafting of the [place] abdominal aortic aneurysm with the proximal [...] side. Questionable localized contrast retention Reading Location: [place] [address] CC: Dr. Dustin Hawk MD; Dr. Dallas Reed MD ~ Front Office Medical Assistant: Signed [facility] 04-03-2025 Note [facility] 04-03-2025 History of Presen t illness Narrative Images from the original note were not included. [facility] Telephonic Outreach Patient identified by Name and Date of . Discussed care with patient. H@H number provided, will send via [employer] as well Program Details Chronic Disease Management [...] Comprehensive HTN education provided 04/18/2025 02/19/2025 Adriane Whiet RN Complete Annual Medicare Wellness visit addressed [...] - Bi-Weekly Outreach (Recurring) Disposition Based on catering convention services manager, the following disposition is advised: No action needed Luci Matute RN April 03, 2025 12:29 PM documented in this encounter [facility] 03-28-2025 Telephone encounter Note The patient has [...] by mouth once daily. Venessa Grant RN [facility] 03-28-2025 Miscellaneous Notes The patient has been [...] Venessa Grant RN documented in this encounter [facility] 03-20-2025 Note [facility] 03-20-2025 History of Presen t illness Narrative Images from the original note were not included. [facility] Telephonic Outreach Provider Action/FYI Patient identified by Name and Date of . Discussed care with patient. Patient reports he had his cardiac surgery at [facility] on Wednesday and is recovering well, [...] 2025 10:23 AM documented in this encounter [facility] 03-19-2025 Telephone encounter Note Spoke with patient [...] would like to have this done at [facility] as it is much closer to home. I stated we will fax order to [place] and work to schedule imaging there. Patient expressed understanding and thanked me for calling. [facility] 03-19-2025 Miscellaneous Notes Spoke with patient to [...] would like to have this done at [facility] as it is much closer to home. I stated we will fax order to [place] and work to schedule imaging there. Patient expressed understanding and thanked me for calling. documented in this encounter [facility] 03-16-2025 Hospital Discharg e instructions Fide Miller [...] a call between 8am and 5pm. - [facility] Radiology - [phone] - [facility] - [phone] - For questions after hours, please call [phone] and ask for the on-call Angiography Radiologist. This handout is intended to provide general educational material to assist you in making informed decisions regarding your medical care. Specific questions about your unique medical conditions should be referred to your primary care physician. The following attachments cannot be sent through Care Everywhere.Arteriogram Discharge Instructions (Hong Konger)documented in this encounter [facility] 03-16-2025 Note Conscious sedation w as administered. Patient tolerated the procedure well. Transfer to IR recovery for observation. [facility] 03-16-2025 Nurse Note Conscious sedation was administered. Patient tolerated the procedure well. Transfer to IR recovery for observation. [facility] 03-16-2025 Nurse Note Conscious sedation was [...] monitors were placed. documented in this encounter [facility] 03-16-2025 Nurse Note Hemostasis achieved [facility] 03-16-2025 Nurse Note Third coil deployed [facility] 03-16-2025 Nurse Note Second coil deployed [facility] 03-16-2025 Nurse Note First coil deployed [facility] 03-16-2025 Nurse Note Patient arrived from IR prep 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 Dr. Bobo in to speak with the patient regarding procedure, and consent was obtained. Patient's lab values and allergies were reviewed. Patient was placed supine on exam table, prepped and draped in sterile fashion. Telemetry monitors were placed. [facility] 03-16-2025 Note IVR History & Physic al Inpatient consult to Anesthesiology--For IR procedure Consult performed by: Jacey Abreu NP Consult ordered by: Ana Bobo MD Name: Leana Camejo : 1940 (Age-85 y.o.) Date of Service: Pt seen/examined on 03/16/2025 Procedure Information Date: 03/16/25 Procedure: H&P CONSULT Chief Complaint: Endoleak of aortic graft History Of Present Illness: We are asked to see/evaluate Leana Cameoj, a 85 y.o. 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 He follows with Dr. Hawk in [place] for surveillance. CT A/P on 01/18/25 revealed [...] Component Value Date (more content not included)... [facility] 03-12-2025 Note Formatting of this n ote might be different from the original. Spoke to patient. Reviewed instructions for procedure. Please arrive to the Main Entrance ([address] [facility]), on ground floor go to registration if you are not pre-registered. If pre-registered, continue on ground floor, follow past [employer] and the [employer], take Elevator 21 to the 2nd [...] or friend. Questions answered. Verbalized understanding. . [facility] 03-12-2025 Note Spoke to patient. Reviewed instructions for procedure. Please arrive to the Main Entrance ([address] [facility]), on ground floor go to registration if you are not pre-registered. If pre-registered, continue on ground floor, follow past [employer] and the [employer], take Elevator 21 to the 2nd [...] or friend. Questions answered. Verbalized understanding. . [facility] 03-12-2025 Miscellaneous Notes Spoke to patient. Reviewed instructions for procedure. Please arrive to the Main Entrance ([address] [facility]), on ground floor go to registration if you are not pre-registered. If pre-registered, continue on ground floor, follow past [employer] and the [employer], take Elevator 21 [...] Verbalized understanding. . documented in this encounter [facility] 03-12-2025 Miscellaneous Notes Left message for patient. Reviewed instructions for procedure. Please arrive to the Main Entrance ([address] [place] [address]), on ground floor go to registration if you are not pre-registered. If pre-registered, continue on ground floor, follow past [employer] and the [employer], take Elevator 21 [...] or friend. . documented in this encounter [facility] 03-12-2025 Note Formatting of this n ote might be different from the original. Left message for patient. Reviewed instructions for procedure. Please arrive to the Main Entrance ([address] [place] [address]), on ground floor go to registration if you are not pre-registered. If pre-registered, continue on ground floor, follow past [employer] and the [employer], take Elevator 21 [...] responsible adult family member or friend. . [facility] 03-12-2025 Note Left message for pat ient. Reviewed instructions for procedure. Please arrive to the Main Entrance ([address] [facility]), on ground floor go to registration [...] responsible adult family member or friend. . [facility] 03-12-2025 Note [facility] 03-12-2025 History of Presen t illness Narrative CC: Patient presents with: Follow Up: 6 months HPI Recording using [employer] software for draft documentation of the visit was discussed with the patient/authorized parts counter representative; all questions welcomed and answered. Patient/authorized parts counter representative agreed to proceed Leopoldo Camejo is an 85-year-old male with a [...] leaking graft. - Previous surgeries performed at [facility]; upcoming procedure by Dr. Bobo at [facility]. Review of Systems See HPI PAST MEDICAL HISTORY Diagnosis Date Abdominal aortic aneurysm (AAA) without rupture 08/26/201708/2017: 3.7 cm Anemia Chronic diastolic CHF (congestive heart failure) ([facility]) 10/20/[address] Montes CKD (chronic kidney disease) stage 3, GFR 30-59 ml/min ([facility]) 02/20/2014 Collagenous colitis 02/04/2023 COVID-19 09/12/2021 DDD (degenerative disc disease), lumbar 08/26/2017 Diarrhea Diverticulosis of colon (without mention of hemorrhage) Hematoma of right iliopsoas muscle 06/21/2019 Internal hemorrhoids without mention of complication Lumbar radiculopathy 08/26/2017 Mixed hyperlipidemia Hyperlipidemia Pancreatic cyst ([facility]) 07/17/2024 S/P carotid endarterectomy right 01/20/2021 Spigelian [...] 2 LIMB 04/07/2023 AAA stent graft repair, [facility] LAPS RPR RECURRENT INCISIONAL HERNIA REDUCIBLE 07/29/2015 PAST SURGICAL HISTORY OF 09/09/2015 left total knee arthroplasty PAST SURGICAL HISTORY OF 09/15/2017 micro-disectomy L4-L5, with microcompression bilaterally. PAST SURGICAL HISTORY OF Right 12/16/2018 Repair of complex lateral meniscus tear, Right knee REPAIR UMBILICAL HERNIA 1980 Dr. Henry STRESS TEST 09/03/2017 normal ALLERGIES Clonidine, Crestor [Rosuvastatin Calcium], Lipitor [Atorvastatin Calcium], Lisinopril, Nifedipine, and Statins [Cgozwzj-Odi-Pna Reductase Inhibitors] MEDICATIONS carvedilol (COREG) 12.5 mg [...] (FLONASE) 50 mcg/actuation nasal spray Use 1 Metaline in each nostril daily at bedtime. aspirin [...] repair by interventional radiologist Dr. Bobo at [facility] on Wednesday. - This will be the [...] Patient agreeable to treatment plan. Darya Borden APRN.SHAWNA documented in this encounter [facility] 03-12-2025 Instructions Darya Borden APRN.SHAWNA - 03/12/2025 9:00 AM EDT - Go [...] scheduled aortic repair procedure this Wednesday in [place] with Dr. Bobo. - Continue caring for the superficial skin sore on your bottom--keep it clean and dressed--and let us know if it worsens or shows signs of infection. documented in this encounter [facility] 03-02-2025 Note [facility] 03-02-2025 History of Presen t illness Narrative [...] 2025 11:50 AM documented in this encounter [facility] 03-01-2025 Consult note Formatting of th is [...] stated that they are currently in the [facility]. If the patient is a minor, permission [...] No current facility-administered medications for this visit. [facility] 03-01-2025 Consult note Formatting of th is [...] conscious sedation and embolization with coils and [place] via the above-mentioned approach. Risks of bleeding, [...] stated that they are currently in the state [facility]. If the patient is a minor, permission [...] for this visit. documented in this encounter [facility] 03-01-2025 Note Interventional Radio logy Consultation March [...] stated that they are currently in the state [facility]. If the patient is a minor, permission [...] HERNIA REPAIR X2 1979, 2006 JOINT REPLACEMENT 2015 JOINT REPLACEMENT 1998 KNEE ARTHROSCOPY 11/2018 OTHER SURGICAL HISTORY Right 07/19/2019 CT Abdominal abscess aspiration TONSILLECTOMY (HISTORICAL) [4] Social History Tobacco Use Smoking Status Former Smokeless Tobacco Never [5] No current outpatient medications on file. No current facility-administered medications for this visit. [facility] 02-26-2025 Note [facility] 02-26-2025 History of Presen t illness Narrative [...] 2025 2:28 PM documented in this encounter [facility] 02-19-2025 Note [facility] 02-19-2025 History of Presen t illness Narrative Images from the original note were not included. [facility] Telephonic Outreach Provider Action/FYI Patient [...] 2025 11:36 AM documented in this encounter [facility] 02-15-2025 Telephone encounter Note The patient has [...] Short LPN February 15, 2025 4:50 PM [facility] 02-15-2025 Miscellaneous Notes The patient has been [...] 2025 4:50 PM documented in this encounter [facility] 02-15-2025 Telephone encounter Note Prescription Refill Information [...] is out on the weekend. Monica Ball [facility] February 15, 2025 4:40 PM [facility] 02-15-2025 Miscellaneous Notes Prescription Refill Information The [...] he is out on the weekend. [facility] February 15, 2025 4:40 PM documented in this encounter [facility] 02-14-2025 Procedure note [facility] 02-14-2025 History and physical note Note Date/Time February 14, 2025 11:36am [facility] Medical Records Department [address] [place] [address] History & Physical Exam 02/14/25 1133 MR#: [id number] Acct: [id number] Name: LEANA CAMEJO Rep #:[id number] : 1940 85 From: Dustin Hawk MD PCP: Dr. Dallas Reed MD Status:R [facility] Location: [facility] HPI - General HPI Narrative LEANA CAMEJO, is a 85 M who presents with prior EVAR with type II endoleak, increasing residual sac. Patent MUNDO with robust communication with SMA; 2 lumbararteries. [facility] Medical History Spigelian hernia Wears hearing aid [...] (From Allergy Other Verified 01/12/25 10:29 Crestor) Mxukifr-KOJ-KjB Reductase Allergy Other Verified 01/12/25 10:29 Inhibitor (Bhvnazz-Ecc-Zlg Reductase Inhibitor) Family History Father Lung cancer [...] Hawk MD; Dr. Dallas Reed MD~ Signed [facility] Work Phone: 1(629) 638-859205-28-2025 History and physical note [facility] Medical Records Department [address] [place] [address] History & Physical Exam 02/14/25 1133 MR#: [id number] Acct: [id number] Name: LEANA CAMEJO Rep #:[id number] : 1940 85 From: Dustin Hawk MD PCP: Dr. Dallas Reed MD Status:R [facility] Location: [facility] HPI - General HPI Narrative LEANA CAMEJO, is a 85 M who presents with prior EVAR with type II endoleak, increasing residual sac. Patent MUNDO with robust communication with SMA; 2 lumbararteries. [facility] Medical History Spigelian hernia Wears hearing aid [...] (From Allergy Other Verified 01/12/25 10:29 Crestor) Gufogvf-UWA-TmE Reductase Allergy Other Verified 01/12/25 10:29 Inhibitor (Ommowda-Qbh-Efp Reductase Inhibitor) Family History Father Lung cancer [...] PLAN: -angio, possible coil MUNDO 02/14/25 1136 Cosigner Signature (if applicable): CC: Dr. Dustin Hawk MD; Dr. Dallas Reed MD~ Signed [facility]05-28-2025 [facility] Medical Records Department [address] [place] [address] History Physical Exam 02/14/25 1133 MR#: [id number] Acct: [id number] Name: LEANA CAMEJO Rep #: [id number] : 1940 85 From: Dustin Hawk MD PCP: Dr. Dallas Reed MD Status:[facility] Location: [facility] HPI - General HPI Narrative LEANA CAMEJO, is a 85 M who presents with prior EVAR with type II endoleak, increasing residual sac. Patent MUNDO with robust communication with SMA; 2 lumbar arteries. [facility] Medical History Spigelian hernia Wears hearing aid [...] (From Allergy Other Verified 01/12/25 10:29 Crestor) Jsbyrud-AEN-SzZ Reductase Allergy Other Verified 01/12/25 10:29 Inhibitor (Jrcupni-Fkp-Fpz Reductase Inhibitor) Family History Father Lung cancer [...] extremities or weakness i (more content not included)...[facility]05-28-2025 Evaluation note* Diagnosis Onset Date Resolution Status Admit Date Type II endoleak of aortic graft [facility] on February 14, 2025 9:24am Type II endoleak of aortic graft [facility] February 27, 2025 2:40pm Abdominal aortic 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 April 18, 2025 4:16pm [facility] Work Phone: 1(948) 771-400505-28-2025 Evaluation note* Diagnosis Onset Date Resolution Status [...] 8:04am Shortness of breath resolved 2024 8:04am [facility] Work Phone: 1(769) 929-143205-28-2025 Evaluation note* Diagnosis Onset Date Resolution Status [...] resolved April 8:04am Shortness of breath resolved Augus 2024 8:04am Acute exacerbation of chroni c heart failure acute May 21, 2 025 3:46am DAL[place] (acute kidney injury) acute May 21, 2025 3:46am Elevated TSH acute May 3:46am New onset atrial flutter acute May 21, 2025 3:46am Non-ST elevation [place] (NSTEMI) acute May 21, 2025 3:46am Abdominal aortic 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 May 21, 2 025 3:46am Chronic renal failure, stage 3 (moderate) chronic May 21 025 3:46am 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 [facility] Telephonic Outreach Provider Action/FYI Patient [...] completed: ADLs, Fall Risk, SDOH 02/16/2025 01/17/2025 CHRISTIANO Gil Patient-stated goal addressed (add comment) 04/18/2025 01/17/2025 [...] 01, 2025 1:48 PM [facility] History of Present illness Narrative* Adriane White [...] were you homeless or living in a skilled nursing (including now)?: No Transportation Needs In the [...] has the electric, gas, oil, or water [employer] threatened to shut off services in your [...] 17, 2025 2:17 PM [facility] Discharge summary Author Hernandez King [facility] Note Date/Time January 12, 2025 1:2 [facility] [address] [place] [address] Emergency Department Summary 01/12/25 MR#: [id number] Acct: [id number] Name: LEANA CAMEJO Rep #:[id number] : [...] 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 He is presently [...] was reviewed.) Recent Illness/Hospitalization: Yes (Transfer to [facility] for evaluation of endoleak of aort) [facility] Medical History Spigelian hernia Wears hearing aid [...] (From Allergy Other Verified 01/12/25 10:29 Crestor) Wwxnbkq-XCY-BiY Reductase Allergy Other Verified 01/12/25 10:29 Inhibitor (Wvxlgmg-Szl-Uap Reductase Inhibitor) Family History Father Lung cancer [...] were changed when he was at the [facility]. He and his both commented they do not want to go back to [place] not [place] ride. General [...] % (Auto) 63.2 Lymph % (Auto) 22.3 [place] % (Auto) 9.8 Eos % (Auto) 3.5 [...] of the examination is unchanged. Reading Location: [facility] Since the endoleak is unchanged and there [...] anything return to the emergency Print Language: Hong Konger Disposition Disposition: Home, Self Care What to do if you have Problems For any increased pain, shortness of breath, bleeding, nausea or vomiting, chestpain, or any unexpected problems, contact your Primary Care Provider. Call [facility] ([phone]) or report to the closest Emergency Room. Call 911 if necessary. 01/12/25 1321 <Electronically signed by Hernandez King MD> Cosigner Signature (if applicable): CC: Dr. Dallas Reed MD ~ Signed [facility] Work Phone: 1(687) 689-793304-25-2025 Discharge summary [facility] Medical Records Department [address] [place] [address] Emergency Department Summary 01/12/25 MR#: [id number] Acct: [id number] Name: LEANA CAMEJO Rep #:[id number] : [...] 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 He is presently [...] was reviewed.) Recent Illness/Hospitalization: Yes (Transfer to [facility] for evaluation of endoleak of aort) [facility] Medical History Spigelian hernia Wears hearing aid [...] (From Allergy Other Verified 01/12/25 10:29 Crestor) Mstvwxg-YTF-GqK Reductase Allergy Other Verified 01/12/25 10:29 Inhibitor (Xuzmoxr-Ugd-Qwb Reductase Inhibitor) Family History Father Lung cancer [...] were changed when he was at the [facility]. He and his both commented they do not want to go back to [place] they donot want helicopter ride. General Appearance [...] % (Auto) 63.2 Lymph % (Auto) 22.3 [place] % (Auto) 9.8 Eos % (Auto) 3.5 [...] of the examination is unchanged. Reading Location: [place] [address] Since the endoleak is unchanged and there [...] anything return to the emergency Print Language: Hong Konger Disposition Disposition: Home, Self Care What to do if you have Problems For any increased pain, shortness of breath, bleeding, nausea or vomiting, chestpain, or any unexpected problems, contact your Primary Care Provider. Call [facility] ([phone]) or report tothe closest Emergency Room. Call 911 if necessary. 01/12/25 1321 Cosigner Signature (if applicable): CC: Dr. Dallas Reed MD ~ Signed [facility]04-25-2025 Radiology Diagnostic study note [facility] Imaging Services [address] [place] [address] Abdomen/Pelvis W IV Cont ONLY MR#: [id number] Acct: [id number] Name: LEANA CAMEJO Rep #: [id number] : 1940 M 85 From: Gordo Alcaraz MD PCP: Dr. Dallas Reed MD Status: R EG ER Study:Abdomen/Pelvis W IV Cont ONLY Date of E xam: 01/12/25 Exam# [id number] Ordering Dr: Rhett King MD PROCEDURE: ABDOMEN/PELVIS [...] Liver: Diffuse fatty infiltration. Gallbladder: Unremarkable. Spleen: Npnudvtz-tq-hdrfbe degree of splenomegaly. This is unchanged. Pancreas: [...] of the examination is unchanged. Reading Location: [place] [address] CC: Dr. Hernandez King MD; Dr. Dallas Reed MD ~ Front Office Medical Assistant: Signed [facility]04-08-2025 [facility] History of Present illness Narrative* Adriane White RN - 12/26/2024 11:21 AM EDT Transitional Care Management (TCM) Follow-Up Note PCP Update / Actionable Items N/A - No specialty updates needed Patient Source: In-Network Discharge Follow-up outreach: TCM enrolled patient Outreach Summary: Patient reports some mild sob and palpitations last night, he does have a call out to his provider from [place] and will discuss with him, as well [...] 26, 2024 11:27 AM [facility] Evaluation note* Diagnosis Onset Date Resolution Status Admit Date Type II endoleak of aortic graft [facility] December 25, 2024 3:30pm Type II endoleak of aortic graft [facility] February 14, 2025 9:24am [facility] Work Phone: 1(130) 408-800604-07-2025 Evaluation note* Diagnosis Onset Date Resolution Status Admit Date 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 ic December 25, 2024 3:30pm 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 February 14, 2025 9:24am Type II endoleak of aortic graft [facility] onFebruary 27, 2025 2:40pm [facility] Work Phone: 1(957) 797-594704-04-2025 [facility] History of Present illness Narrative* Ramon Lee, PT - 12/22/2024 9:20 AM EDT Images from the original note were not included. Episode Visit Count: 8 Therapist That Will Accept/Oversee The Plan Of Care: Raomn Lee PT. Start of Care Date: 11/21/24 [...] to ramp back up from there). However, Leopoldo feels confident in his current status and wishes to complete HEP indep. Updated: 12/22/24. Goals for Episode of Care: established 11/21/24 Patient will report no falls. (Goal Met) [place] in home exercise program. (Goal Met) Patient [...] Time (minutes): 30 Session Start Time : 0915 Session Stop Time : 944 Ramon Lee PT documented in this [facility] [facility]04[facility]20[facility] History of Present illness Narrative* Adriane White [...] 19, 2024 10:29 AM documented in this encounterReg[facility]-2025 [facility] History of Present illness Narrative* Ramon Lee, [...] toward set goals. PLAN FOR NEXT VISIT: CA. SUBJECTIVE: No new falls. Left side anterior [...] 957 Ramon Lee PT documented in this encounterReg[facility]-28-2025 [facility] History of Present illness Narrative* Ramon Lee, PT - 12/15/2024 9:22 AM EDT Episode [...] 954 Ramon Lee PT documented in this encounterReg[facility]-2025 [facility] History of Present illness Narrative* Ramon Lee, PT - 12/12/2024 9:15 AM EDT Episode [...] Bilateral knee collapse (worse on R) during zay-nl-vnmrnz without use of hands and with increased [...] 956 Ramon Lee PT documented in this encounterReg[facility]-24-2025 Telephone encounter Note * Telephone Encounter - Emily Fagan RP - 12/11/2024 2:23 PM EDT Pharmacy Community [...] information discussed today. I encouraged him to contactPCP office with any additional questions or concerns. Emily Fagan RPh December 11, 2024 2:24 PM [facility]03-24-2025 Miscellaneous Notes* Telephone Encounter - Emily Fagan [...] hydralazine - per chart review - LEON Theodora sent a high priority message to PCP this AM. The patient did verbalize understanding of information discussed today. I encouraged him to contactP office with any additional questions or concerns. Emily Fagan RPh December 11, 2024 2:24 PM documented in this encounterRegency [facility]03-24-2025 [facility] History of Present illness Narrative* Adriane White [...] further. Routed to RX 4C Medication Question ([id number]) and indicate in Pharmacy Box Patient Questions [...] 11, 2024 11:55 AM documented in this encounterReg[facility]-2025 Telephone encounter Note * Telephone Encounter - [...] Hernandez LPN December 11, 2024 9:14 AM [facility]03-24-2025 Miscellaneous Notes* Telephone Encounter - Theodora Hernandez [...] failure. He is asking for a new director long term care script to be sent to the [facility] in [place]. documented in this encounterRegency Hospital [facility]03-24-2025 Telephone encounter Note * Telephone Encounter - Vicky Narvaez - 12/11/2024 8:16 AM EDT Patient was placed back on hydralazine 100 mg after hospital visit and alternative medication failure. He is asking for a new director long term care script to be sent to the [facility] in [place]. [facility]03-21-2025 Instructions* Patient Instructions* Dallas Reed MD - 12/08/2024 12:[address] HAWK FOR FOLLOW UP OF ENDOLEAK OF YOUR ANEURYSM. documented in this encounterRegency Hospital [facility]03-21-[address] [facility]03-21-2025 History of Present illness Narrative* Dallas Reed [...] the ER, then transferred to [facility] Patient was admitted to [facility] CICU and [...] 2 LIMB 04/07/2023 AAA stent graft repair, [facility] RPR RECURRENT INCISIONAL HERNIA REDUCIBLE 07/29/2015 [...] for follow up. He is establish with [facility] and did not need a [...] medications Dallas Reed MD documented in this encounterRegency Hospital [facility]03-21-2025 [facility]03-[facility] History of Present illness Narrative* Ramon Lee, [...] 954 Ramon Lee PT documented in this encounterRegency Hospital [facility]edo03-19-2025 History of Present illness Narrative* Ramon Lee, PT - 12/06/2024 9:54 AM EDT Program_ID:[id number] Access Code: [email or web address] URL: [email or web address] Date: 12-06-2024 Prepared By: Ramon Lee Program [...] with recent ED visit and [facility] to [facility]. From Chart - admitted on 11/28 after starting to have LLQ pain starting Friday 11/24. [facility] on Wednesday and they ordered a CT that showed an enlarged abdominal aorta comapred toprior. Patient was recommended to present to hospital. Patient went to [facility] and there hisSBP was 140. Patient was transferred to [facility] CICU. Was in the hospital for 3 [...] Time : 914 Session Stop Time : 09 Ramon Lee PT documented in this encounterRegency Hospital [facility]03-19-2025 [facility]03-17-2025 NoteHNO ID: [id number] Author: DALLAS REED MD Service: ? Author Type: Physician Type: Progress Notes Filed: 12/05/2024 12:54 Note Text: Medication list updated. Continue current medications per patient report. Follow up this Wednesday as scheduled.[facility]03[facility] History of Present illness Narrative* Dallas Reed MD - 12/04/2024 2:11 PM EDT Medication list updated. Continue current medications per patient report. Follow up this Wednesday as scheduled. * Yessenia Price, [facility] - 12/04/2024 7:13 AM EDT TRANSITION CARE [...] these changes if you agree or have patient support assistant contact pt to advise what you recommend [...] oz) Patient was sent a message via [employer] including the link to the [facility] Heart Failure education video: Yes Initial contact with patient post discharge, spoke to patient, and verified that any applicable caregiver is active in patient's medical care. Patient identified by name and . Summary: -Pt discharged from [facility] on 12/01/24. -Medication review done Full [...] pain starting Friday 11/24. Patient went to [facility] urgent care on Wednesday and they ordered a CT that showed an enlarged abdominal aorta comapred to prior. Patient was recommended to present to hospital. Patient went to [facility] and there hisSBP was 140. Patient was not given any medications there and he was recommended to be transferred to [facility] CICU. Hospital Course: [facility] [...] (FLONASE) 50 mcg/actuation nasal spray Use 1 Metaline in each nostril daily at bedtime. Discontinued: [...] Pt is not taking Removed Preferred pharmacy: [facility] [address] [place] [phone] [facility] [phone] [place] [address] Estimated Creatinine Clearance: 33.5 mL/min (A) (based on SCr of 1.59 mg/dL (H)). Estimated Glomerular Filtration Rate (mL/min/1.73m ) Date Value 12/01/2024 43 (L) eGFR- (no units) Date Value 07/02/2021 57 Additional follow up: Next 5 Appointments Date and Time Provider Department Dept Phone 12/06/2024 9:15 AM Ramon Lee PT [facility] [phone] 12/08/2024 9:15 AM Ramon Lee PT [facility] [phone] 12/08/2024 11:40 AM Dallas Reed INTM [facility] [phone] 12/12/2024 9:15 AM Ramon Lee PT [facility] [phone] 12/15/2024 9:15 AM Ramon Lee PT [facility] [phone] Interventions Made: Adherence counseling Pharmacist Recommendations Made Potential drug interaction/side effects/adverse effects detected Care Coordination: Escalated to specialist provider Time spent on patient: 45-60 minutes Yessenia Price RPh December 04, 2024 7:14 AM documented in this encounterRegency Hospital [facility]03-17-2025 [facility]03-17-2025 History of Present illness Narrative* Adriane White RN - 12/04/2024 9:40 AM EDT Transition Care Management (TCM) Initial Outreach PCP Update / Actionable Items HRTIC TCM Home Visit Referral Source of Stratification: TCM [facility] Hospital Admission Status: Discharged Readmission Risk Score: 11 Patient's zip code: [address] Is zip code within program service area: [...] follow up with patient. Patient discharged from [facility] Discharge date: 12/01/24 Admitted for: Type 2 endoleak of aortic graft Readmission Risk: 11 Value-Based Contract: ACO Contact: Contact made with patient: Yes Hi, my name is Adriane White RN and I am calling from the [facility] on behalf of your Primary Care Provider, [...] I will send your request to a hearing healthcare practitioner who will contact and assist you with [...] 04, 2024 9:43 AM documented in this encounterRegency Hospital [facility]03-17-2025 [facility]03-15-2025 Telephone encounter Note* Telephone Encounter - Dustin [...] with plan. Dustin Lombardi APRN.CNP 7:06 PM [facility] Work Phone: 1([phone]) 218-609603-15-2025 Miscellaneous Notes* Telephone Encounter - Dustin Lombardi [...] Lombardi APRN.CNP 7:06 PM documented in this encounterRegency Hospital [facility]03-14-2025 [facility]03-14-2025 [facility]03-13-2025 [facility]03-11-2025 [facility]03-11-2025 History of Present illness Narrative* Tali Maldonado APRN.SPA ATTENDANT - 11/28/2024 10:08 PM EDT Images from the original note were not included. Critical Care Transport Note Patient Name: Leana Camejo Service Date: 11/28/24 Referring Physician: Isaac Referring Facility: [facility] Accepting Physician: Gabrielle Accepting Facility: [facility] SUBJECTIVE/CHIEF COMPLAINT: LLQ abdominal pain REASON FOR [...] stenosis, anemia and HPL. He presented to [facility] today for evaluation of acute onset abdominal pain. Per rep ort he has had LLQ abdominal pain since Wednesday (11/24/24). In the ED he was noted to be mildly hypertensive, no N/V, no peripheral numbness/tingling. CT noted interval increased size of abdominal aortic aneurysm sac compared to prior exam, interval increased blush within the [place] aortic sac, evidence of type 2 endo leak. He was given morphine and zofran in the ED. At this time, the physician managing the patient requested transfer to the [facility] for tertiary and/or quaternary services unavailable at the referring facility. The physician managing the patient requested the [facility] Critical Care Transport Team transport and treat the patient for the purpose of tertiary care, evaluation, and management of his acute AAA with endoleak condition(s). Air medical transport was requested to reduce the nyz-fu-bwbseqzi time, 27 minutes by air vs. approximately [...] Date Abdominal aortic aneurysm (AAA) without rupture ([facility]) 08/26/201708/2017: 3.7 cm Anemia Chronic diastolic CHF (congestive heart failure) ([facility]) 10/20/[address] Montes CKD (chronic kidney disease) stage 3, GFR 30-59 ml/min ([facility]) 02/20/2014 Collagenous colitis 02/04/2023 COVID-19 09/12/2021 DDD [...] Calcium], Lipitor [Atorvastatin Calcium], Lisinopril, and Statins [Rcvjljm-Wmr-Ssv Reductase Inhibitors] SOCIAL HISTORY: Social History Tobacco [...] Interval increase in contrast blush within the [place] aortic sac. These findings consistent with [...] HR < 70 - Expedite transport to [facility] for further workup and care The transport was completed without significant incident or change in the patient's status. The patient was transported to the the [facility] by Rotor (Helicopter) for tertiary and/or quaternary evaluation and management of his Critical Surgical condition(s). Upon arrival to the receiving facility, a bwnk-cg-aszr report was given to bedside nursing staff [id number] and bedside medical team . Patient care [...] endoleak and the Cardiovascular impairment, Respiratory impairment, GLOBAL CREATIVE CHAIRMAN impairment, Shock, Cardiac Arrest, and Severe metabolic abnormality which the patient had and/or had a high probability of suddenly developing. SIGNATURE: Tali Maldonado APRN.CNP Acute Care Nurse Practitioner [facility] Critical Care Transport Team documented in this encounterRegency Hospital [facility]03-11-2025 Discharge summary [facility] Medical Records Department [address] [place] [address] Emergency Department Summary 11/28/24 MR#: [id number] Acct: [id number] Name: LEANA CAMEJO Rep #:[id number] : [...] for 5 days and was seen by [facility] care physician's office yesterday. They did a [...] (From Allergy Other Verified 11/28/24 17:53 Crestor) Atkouom-RFG-HqV Reductase Allergy Other Verified 11/28/24 17:53 Inhibitor (Rviuvzz-Tmo-Msn Reductase Inhibitor) Family History Father Lung cancer [...] pain and outpatient CT done at the [facility] facility locally yesterday showed a AAA of [...] this or another cause. I spoke to [facility] auto launch 2 of their surgeons a [...] 71.3 H Lymph % (Auto) 17.0 L [place] % (Auto) 9.1 Eos % (Auto) 1.6 [...] Sl. Cloudy Urine pH 6.5 Ur Specific [place] 1.010 Urine Protein 15 H Urine Glucose [...] Interval increase in contrast blush within the [place] aortic sac. These finding is consistent [...] use of iterative reconstruction technique). Reading Location: [id number] Rhythm Strip Rhythm Strip: Sinus Rhythm Rate: 87 Ectopy: None EKG Initial EKG: Attestation: I personally reviewed and interpreted this EKG as follows: Interpretation: Sinus Rhythm and No Acute Injury Pattern Comments: Normal sinus rhythm rate 87 no acute signs of IL or ischemia. Discharge Plan Triage Chief Complaint: [...] MD [Primary Care Provider] - Print Language: Hong Konger Disposition Disposition: Acute Care Hospital What to do if you have Problems For any increased pain, shortness of breath, bleeding, nausea or vomiting, chestpain, or any unexpected problems, contact your Primary Care Provider. Call [facility] ([phone]) or report tothe closest Emergency Room. Call 911 if necessary. 11/28/241919 Cosigner Signature (if applicable): CC: Dr. Dallas Reed MD ~ Signed [facility]03-11-2025 Radiology Diagnostic study note [facility] Imaging Services [address] [place] [address] Abdomen/Pelvis W IV Cont ONLY MR#: [id number] Acct: [id number] Name: LEANA CAMEJO Rep #: [id number] : 1940 M 84 From: Raegan Gupta MD PCP: Dr. Dallas Reed MD Status: P RE ER Study:Abdomen/Pelvis W IV Cont ONLY Date of E xam: 11/28/24 Exam# [id number] Ordering Dr: Mira Gray MD PROCEDURE: ABDOMEN/PELVIS [...] abnormal enhancement within the sac of the [place] aorta which are consistent with endoleak [...] Interval increase in contrast blush within the [place] aortic sac. These finding is consistent [...] use of iterative reconstruction technique). Reading Location: [id number] CC: Dr. Nate Gray MD; Dr. Dallas Reed MD ~ Front Office Medical Assistant: Signed [facility]03-11-2025 Telephone encounter Note* Telephone Encounter - Sheeba Castellano MA - 11/28/2024 5:22 PM EDT Nurse called back line and I spoke to another provider Susan Gates NP since pcp/CHANGE CONSULTANT were out. ROSSI Gates advised patient needs to go to ER due to pain and change in aortic size. Did call patient who advised will go to [facility] ER and aware of results from radiologist below. Called [facility] ER and spoke to Dr. Gray and faxed CT/office note/Radiologist report to [phone]. Sheeba Castellano MA [facility]03-11-2025 Miscellaneous Notes* Telephone Encounter - Sheeba Castellano MA - 11/28/2024 5:22 PM EDT Nurse called back line and I spoke to another provider Susan Gates NP since pcp/CHANGE CONSULTANT were out. ROSSI Gates advised patient needs to go to ER due to pain and change in aortic size. Did call patient who advised will go to [facility] ER and aware of results from radiologist below. Called [facility] ER and spoke to Dr. Gray and faxed CT/office note/Radiologist report to [phone]. Sheeba Castellano MA * Telephone Encounter - Venessa Grant RN - 11/28/2024 5:08 PM EDT Received call from Dr. Ga, [facility] Radiologist regarding pt's CT ABD/PEL results stating per result note, there has been interval enlargement of the [place] lumen consistent with a hemodynamically significant leak'. Dr. Ga states he is unsure if this is cause for patient's pain but he is asking provider to address this and contact patient. Venessa Grant RN documented in this encounterRegency Hospital [facility]edo03-11-2025 Telephone encounter Note * Telephone Encounter - Venessa Grant RN - 11/28/2024 5:08 PM EDT Received call from Dr. Ga, [facility] Radiologist regarding pt's CT ABD/PEL results stating per result note, there has been interval enlargement of the [place] lumen consistent with a hemodynamically significant leak'. Dr. Ga states he is unsure if this is cause for patient's pain but he is asking provider to address this and contact patient. Venessa Grant RN [facility]03-11-2025 Discharge summary Author Nate Gray [facility] Note Date/Time November 28, 2024 7:2 0pm [facility] Medical Records Department [address] [place] [address] Emergency Department Summary 11/28/24 MR#: [id number] Acct: [id number] Name: LEANA CAMEJO Rep #:[id number] : [...] for 5 days and was seen by [facility] care physician's office yesterday. They did a [...] (From Allergy Other Verified 11/28/24 17:53 Crestor) Ikdeabh-DZO-ZfZ Reductase Allergy Other Verified 11/28/24 17:53 Inhibitor (Nuyitwn-Oxo-Xox Reductase Inhibitor) Family History Father Lung cancer [...] pain and outpatient CT done at the [facility] facility locally yesterday showed a AAA of [...] this or another cause. I spoke to [facility] auto launch 2 of their surgeons a [...] 71.3 H Lymph % (Auto) 17.0 L [place] % (Auto) 9.1 Eos % (Auto) 1.6 [...] Sl. Cloudy Urine pH 6.5 Ur Specific [place] 1.010 Urine Protein 15 H Urine Glucose [...] Interval increase in contrast blush within the [place] aortic sac. These finding is consistent [...] use of iterative reconstruction technique). Reading Location: [id number] Rhythm Strip Rhythm Strip: Sinus Rhythm Rate: 87 Ectopy: None EKG Initial EKG: Attestation: I personally reviewed and interpreted this EKG as follows: Interpretation: Sinus Rhythm and No Acute Injury Pattern Comments: Normal sinus rhythm rate 87 no acute signs of IL or ischemia. Discharge Plan Triage Chief Complaint: [...] MD [Primary Care Provider] - Print Language: Hong Konger Disposition Disposition: Acute Care Hospital What to do if you have Problems For any increased pain, shortness of breath, bleeding, nausea or vomiting, chestpain, or any unexpected problems, contact your Primary Care Provider. Call [facility] ([phone]) or report to the closest Emergency Room. Call 911 if necessary. 11/28/241919 <Electronically signed by Nate Gray MD> Cosigner Signature (if applicable): CC: Dr. Dallas Reed MD ~ Signed [facility] Work Phone: [phone] 309-631703-10-2025 Instructions* Patient Instructions* Darya Borden APRN.CNP - 11/27/2024 11:27 AM EDT Go to ER or call 911 if you develop severe abdominal pain, vomiting that won't stop, high fever, rigid/hard abdomen. documented in this encounterRegency Hospital [facility]03-10-2025 [facility]03-10-2025 [facility]03-10-2025 History of Present illness Narrative* Darya Borden APRN.SPA ATTENDANT - 11/27/2024 10:54 AM EDT CC Patient [...] Date Abdominal aortic aneurysm (AAA) without rupture ([facility]) 08/26/201708/2017: 3.7 cm Anemia Chronic diastolic CHF (congestive heart failure) ([facility]) 10/20/[address] Montes CKD (chronic kidney disease) stage 3, GFR 30-59 ml/min ([facility]) 02/20/2014 Collagenous colitis 02/04/2023 COVID-19 09/12/2021 DDD [...] 2 LIMB 04/07/2023 AAA stent graft repair, [facility] LAPAROSCOPY SURG RPR INITIAL INGUINAL HERNIA 07/29/2015 LAPS RPR RECURRENT INCISIONAL HERNIA REDUCIBLE 07/29/2015 PAST SURGICAL HISTORY OF 09/09/2015 left total knee arthroplasty PAST SURGICAL HISTORY OF 09/15/2017 micro-disectomy L4-L5, with microcompression bilaterally. PAST SURGICAL HISTORY OF Right 12/16/2018 Repair of complex lateral meniscus tear, Right knee REPAIR UMBILICAL HERNIA 1980 Dr. Carl STRESS TEST 09/03/2017 normal ALLERGIES Clonidine, Crestor [Rosuvastatin Calcium], Lipitor [Atorvastatin Calcium], Lisinopril, and Statins [Kyddzjz-Tpn-Hgl Reductase Inhibitors] MEDICATIONS hydrALAZINE (APRESOLINE) 100 mg tablet Take 1 tablet by mouth three times a day. levothyroxine (SYNTHROID) 25 mcg tablet Take 1 tablet by mouth daily before breakfast. bempedoic acid (NEXLETOL) 180 mg tablet Take 1 tablet (180 mg) by mouth once daily. fluticasone (FLONASE) 50 mcg/actuation nasal spray Use 1 Metaline in each nostril daily at bedtime. aspirin [...] Patient agreeable to treatment plan. Darya Borden APRN.SPA ATTENDANT Medical Decision Making: Problems: Moderate: Acute illness with systemic symptoms Data: Unique test result(s) reviewed: 2 Unique test(s) ordered: 2 Risk: Moderate: Moderate risk from testing/treatment Medical Decision Making Level: 4 - Moderate documented in this encounterRegency Hospital [facility]03-10-[address] [facility]03-10-2025 History of Present illness Narrative* Gavin Rivero APRN.SPA ATTENDANT - 11/27/2024 9:46 AM EDT Nontoxic-appearing 84-year-old male presents urgent care chief complaint abdominal pain. Duration of symptoms 2 days. Associated symptoms left-sided abdominal pain. States aching-like discomfort. OTCmedications none. States this started after eating at [employer] Wednesday night. Presents today for evaluation. States pain is persistent. No vomiting. No change in bowel or bladder habits. No fevers. Appointment today at 11 AM with PCP Gavin Rivero APRN.SPA ATTENDANT documented in this encounterRegency Hospital [facility]03-07-[address] [facility]03-07-2025 History of Present illness Narrative* Ramon Lee, [...] 822 Ramon Lee PT documented in this encounterRegency Hospital [facility]03-04-2025 History of Present illness Narrative* Ramon Lee, PT - 11/21/2024 11:26 AM EST Program_ID:[id number] Access Code: [email or web address] URL: [email or web address] Date: 11-21-2024 Prepared By: Ramon Lee Program [...] established 11/21/24 Patient will report no falls. [place] in home exercise program. Patient will Improve [...] Planned: 8 Planned Treatment Interventions: Therapeutic exercise (31980), Neuromuscular re- education (81536), Manual therapy (26994), Therapeutic activities (90423), Self- long-term management (19259), Patient/Family/Caregiver Education PLAN FOR NEXT VISIT: Challenge [...] report. Subsequent Abrasion/contusion on head. Went to express care three days later andthen followed up [...] R Knee Scope (15-20 years). Employment: Retired ([employer] Part-Time.) Home Environment Patient Lives With: Spouse Intake Information: Prescription present Previous Treatment: None Falls Interview: No positive findings with falls interview Falls History # of falls in past year: 1 # of falls resulting in an injury in past year: 1 PAST MEDICAL HISTORY Diagnosis Date Abdominal aortic aneurysm (AAA) without rupture ([facility]) 08/26/201708/2017: 3.7 cm Anemia Chronic diastolic CHF (congestive heart failure) ([facility]) 10/20/[address] Montes CKD (chronic kidney disease) stage 3, GFR 30-59 ml/min ([facility]) 02/20/2014 Collagenous colitis 02/04/2023 COVID-19 09/12/2021 DDD [...] 1130 Ramon Lee PT documented in this encounterRegency Hospital [facility]03-04-2025 [facility]02-20-2025 [facility]02-20-2025 History of Present illness Narrative* Dallas Reed MD - 11/09/2024 2:20 PM EST This note was created using [employer]. Subjective Leana Camejo is a 84 year [...] (FLONASE) 50 mcg/actuation nasal spray Use 1 Metaline in each nostril daily at bedtime. aspirin [...] THERAPY Dallas Reed MD documented in this encounterRegency Hospital [facility]02-18-2025 [facility]02-18-2025 History of Present illness Narrative* Elbert Hawk APRN.[facility] - 11/07/2024 11:57 AM EST Subjective [...] Anemia Chronic diastolic CHF (congestive heart failure) ([facility]) 10/20/[address] Montes CKD (chronic kidney disease) stage 3, GFR 30-59 ml/min ([facility]) 02/20/2014 Collagenous colitis 02/04/2023 COVID-19 09/12/2021 DDD [...] 2 LIMB 04/07/2023 AAA stent graft repair, [facility] LAPAROSCOPY SURG RPR INITIAL INGUINAL HERNIA [...] Calcium], Lipitor [Atorvastatin Calcium], Lisinopril, and Statins [Hyuaach-Pyd-Svy Reductase Inhibitors] MEDICATIONS hydrALAZINE (APRESOLINE) 100 mg tablet Take 1 tablet by mouth three times a day. levothyroxine (SYNTHROID) 25 mcg tablet Take 1 tablet by mouth daily before breakfast. bempedoic acid (NEXLETOL) 180 mg tablet Take 1 tablet (180 mg) by mouth once daily. fluticasone (FLONASE) 50 mcg/actuation nasal spray Use 1 Metaline in each nostril daily at bedtime. aspirin [...] OINTMENT Elbert Hawk APRN.SHAWNA documented in this encounterRegency Hospital [facility]01-13-2025 Telephone encounter Note * Telephone Encounter - [...] Please advise. Thank you. Cassandra Couch LPN. [facility]01-13-2025 Miscellaneous Notes* Telephone Encounter - Cassandra Couch [...] you. Cassandra Couch LPN. 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 Would like script sent to Laureen Asif. [facility]12-20-2024 Miscellaneous Notes* Telephone Encounter - Ibeth Manriquez [...] thyroid labs in 3 months Darya Borden APRN.SPA ATTENDANT documented in this encounterRegency Hospital [facility]edo12-20-2024 Telephone encounter Note * Telephone Encounter - Ibeth Manriquez LPN - 09/08/2024 9:29 AM EST ----- Message from Darya Borden APRN.SHAWNA sent at 09/08/2024 6:34 AM EST ----- Please let the patient know his lab results are consistent with hypothyroidism. Start treatment with levothyroxine 25 mcg daily and recheck thyroid labs in 3 months Darya Borden APRN.SPA ATTENDANT [facility]12-19-2024 Instructions* Patient Instructions* Darya Borden APRN.CNP - [...] review all the medicines you take, even mzey-wzq-hxelddd medicines. As you get older, the way [...] have certain medical conditions. documented in this encounterRegency Hospital [facility]12-19-2024 [facility] History of Present illness Narrative* Darya Borden APRN.CNP - 09/07/2024 10:07 AM EST Images from [...] General (Internal Medicine) Fide Goff RN as Screen Cutter And Trimmer (Internal Medicine) Darya Borden APRN.SPA ATTENDANT as Technology Manager (Internal Medicine) Cardiology- Dr. Felipe Medication Assistant- Dr. Dominguez Vascular surgeon-Dr. Bruce Medical/Family history [...] Counseled on low sodium diet Darya Borden APRN.SPA ATTENDANT documented in this encounterRegency Hospital [facility]12-09-2024 [facility]12-[facility]-2024 History of Present illness Narrative* Fide Goff RN - 08/28/2024 11:06 AM EST CDM Telephonic Outreach Provider Action/FYI CDM: CHF, CKD 2nd Attempt Lvm, Instructed to contact PCP/Provider for symptom changes, concerns or needs. Contacted for: Routine Telephonic Outreach Contact made with patient: No, left message. Fide Goff RN August 28, 2024 11:09 AM documented in this encounterRegency Hospital [facility]12-05-2024 [facility]12-[facility]-2024 History of Present illness Narrative* Fide Goff RN - 08/24/2024 1:20 PM EST CDM Telephonic Outreach Provider Action/FYI CDM: CHF, CKD 1st Attempt Lvm, Instructed to contact PCP/Provider for symptom changes, concerns or needs. Contacted for: Routine Telephonic Outreach Contact made with patient: No, left message. Fide Goff RN August 24, 2024 1:21 PM documented in this encounterRegency Hospital [facility]12-04-2024 [facility] Medical Records Department [address] [place] [address] History Physical Exam 08/23/24 1233 MR#: [id number] Acct: [id number] Name: LEANA CAMEJO Rep #: [id number] : 1940 84 From: Lara Fonseca MD PCP: Dr. Dallas Reed MD Status:[facility] Location: [place] [address] History and Physical Date of Admission: 08/23/24 Date of Service: 07/26/24 MR#: [id number] Acct: [id number] Name: LEANA CAMEJO Rep #: [id number] : 1940 Provider: Dr. Lara Fonseca MD Age/Sex: 84/M Location: [facility] Status: Signed Intake Vital Signs 07/11/2416:09 07/26/2409:19 Height 5 ft 8 in 5 ft 8 in Weight: 156 lb BMI 23.7 BP 111/66 Blood Pressure Location Rt brachial Position Sitting Respiration 18 Intake Visit Reasons: SPIGELIAN HERNIA Chief Complaint: spigelian hernia Fashion Coordinator Required: No Is patient in pain?: No Allergies lisinopril Allergy (Intermediate, Verified 07/26/24 09:20) Rashatorvastatin calcium (From Lipitor) Allergy (Verified 07/26/24 09:20) Otherclonidine Allergy (Verified 07/26/24 09:20) Unknownrosuvastatin calcium (From Crestor) Allergy (Verified 07/26/24 09:20) SmjdoMhduaod-BAW-PvP Reductase Inhibitor (Yspthdm-Wat-Svz Reductase Inhibitor) Allergy (Verified 07/26/24 09:20) Other [...] in the past. ROS (more content not included)...[facility]12-04-2024 [facility] Medical Records Department [address] [place] [address] History Physical Exam 08/23/24 1233 MR#: [id number] Acct: [id number] Name: LEANA CAMEJO Rep #: [id number] : 1940 84 From: Lara Fonseca MD PCP: Dr. Dallas Reed MD Status:[facility] Location: [place] [address] History and Physical Date of Admission: 08/23/24 Date of Service: 07/26/24 MR#: [id number] Acct: [id number] Name: LEANA CAMEJO Rep #: [id number] : 1940 Provider: Dr. Lara Fonseca MD Age/Sex: 84/M Location: [facility] Status: Signed Intake Vital Signs 07/11/2416:09 07/26/2409:19 Height 5 ft 8 in 5 ft 8 in Weight: 156 lb BMI 23.7 BP 111/66 Blood Pressure Location Rt brachial Position Sitting Respiration 18 Intake Visit Reasons: SPIGELIAN HERNIA Chief Complaint: spigelian hernia Fashion Coordinator Required: No Is patient in pain?: No Allergies lisinopril Allergy (Intermediate, Verified 07/26/24 09:20) Rashatorvastatin calcium (From Lipitor) Allergy (Verified 07/26/24 09:20) Otherclonidine Allergy (Verified 07/26/24 09:20) Unknownrosuvastatin calcium (From Crestor) Allergy (Verified 07/26/24 09:20) GfnomChpvuqb-HAE-MbV Reductase Inhibitor (Byybyqj-Hxn-Zza Reductase Inhibitor) Allergy (Verified 07/26/24 09:20) Other [...] in the past. ROS (more content not included)...[facility]11-14-2024 Telephone encounter Note* Telephone Encounter - Maribell Huston LPN - 08/03/2024 8:16 AM EST Form faxed back to number on it. [facility]11-14-2024 Miscellaneous Notes* Telephone Encounter - Maribell Huston [...] forms. Maria E to re-fax forms to [phone]. Ranjana Soto RN documented in this encounterRegency Hospital [facility]edo11-13-2024 Telephone encounter Note * Telephone Encounter - Dallas Reed MD - 08/02/2024 5:27 PM EST Form completed, signed. [facility]11-12-2024 Telephone encounter Note* Telephone Encounter - Maribell Huston LPN - 08/01/2024 10:36 AM EST Surgical clearance form rec'd and to pcp to review. [facility]11-12-2024 Telephone encounter Note* Telephone Encounter - Ranjana Soto RN - 08/01/2024 9:34 AM EST Maria E with Dr. Bruce calls to ask if we received surgical clearance forms for patient on 07/26/2024. Noted an OV note from Dr. Bruce but no forms. Maria E to re-fax forms to [phone]. Ranjana Soto RN [facility]11-04-2024 [facility]11-04-2024 History of Present illness Narrative* Fide Goff RN - 07/24/2024 9:57 AM EST M Telephonic Outreach Provider Action/FYI 07/11/24 Pt noted seen at [facility] ED for Left Abd Hernia pain 07/24/24 Pt denies nausea, or vomiting, denies Abd pain Voiding and BM's without difficulty, eating and hydrating well denies fever or chills No medications were ordered Pt has 07/26/24 Appt with Surgeon at [facility] Pt had recent bilateral shoulder pain, completed bilateral injections 07/17/24 by [facility] Instructed to contact PCP/Provider for symptom [...] to talk about today? Yes Based on catering convention services manager, the following disposition is advised: No symptoms or symptoms present, not severe. Routed to: No Action Needed PAVEL Education Provided this Outreach: No Fide Goff RN July 24, 2024 10:01 AM documented in this encounterRegency Hospital [facility]11-02-2024 [facility]11-02-2024 History of Present illness Narrative* Fide Goff RN - 07/22/2024 4:04 PM EDT CDM Telephonic Outreach Provider Action/FYI CDM: CHF, CKD 1st Attempt Contacted for: Routine Telephonic Outreach Contact made with patient: No, unable to leave message. Will reattempt call Fide Goff RN July 22, 2024 4:08 PM documented in this encounterRegency Hospital [facility]edo10-28-2024 Instructions* Patient Instructions* Dallas Reed MD - 07/17/2024 1:40 PM EDT FASTING BLOOD WORK NEXT MONTH BEFORE APPOINTMENT. documented in this encounterRegency Hospital [facility]edo10-28-2024 [facility]10-28-2024 History of Present illness Narrative* Dallas Reed MD - 07/17/2024 1:24 PM EDT This note was created using NoteWriter. [...] kidney disease) stage 3, GFR 30-59 ml/min ([facility]) Chronic Diastolic Chf (Congestive Heart Failure) ([facility]) Allergic Rhinitis Abdominal Aortic Aneurysm (Aaa) Without Rupture ([facility]) Overweight (Bmi 25.0-29.9) S/P carotid [...] disorder. Dallas Reed MD documented in this encounterRegency Hospital [facility]edo10-22-2024 [facility]10-22-2024 History of Present illness Narrative* Gavin Rivero APRN.CNP - 07/11/2024 4:01 PM EDT Nontoxic-appearing male presents urgent care chief complaint abdominal pain and distention. Duration of symptom 1 week. Associated symptoms listed above. Presents today for evaluation. Discussed following up with PCP versus ED. Patient states will be seen emergency room today for further evaluationcare. Will be sent [facility]. will transport patient. Gavin Rivero APRN.CNP documented in this encounterRegency Hospital [facility]edo10-04-2024 [facility]10-04-2024 History of Present illness Narrative* Fide Goff [...] care with patient Outcomes: Patient switched from [facility] to telephone outreach Are you experiencing any new or worsening symptoms you need to talk about today? No Based on catering convention services manager, the following disposition is advised: No symptoms or symptoms present, not severe. Routed to: No Action Needed PAVEL Education Provided this Outreach: No Fide Goff RN June 23, 2024 12:28 PM * Fide Goff RN - 06/22/2024 9:44 AM EDT CDM Telephonic Outreach Provider Action/FYI CDM: CHF, CKD 05/23/24 [facility]: Dizziness, TIA Contacted for: Engagement Contact made with patient: No, left message. Fide Goff RN June 22, 2024 9:47 AM documented in this encounterRegency Hospital [facility]edo10-03-[address] [facility]09-18-2024 Instructions* Patient Instructions* Dallas Reed MD - 06/07/2024 9:12 AM EDT FASTING BLOOD WORK JULY. documented in this encounterRegency Hospital [facility]edo09-18-2024 [facility]09-18-2024 History of Present illness Narrative* Dallas Reed MD - 06/07/2024 8:34 AM EDT This note was created using NoteWriter. Subjective Patient presents with: [facility]/U Leana Camejo is a 84 year old [...] kidney disease) stage 3, GFR 30-59 ml/min ([facility]) Chronic Diastolic Chf (Congestive Heart Failure) ([facility]) Allergic Rhinitis Abdominal Aortic Aneurysm (Aaa) Without Rupture ([facility]) Overweight (Bmi 25.0-29.9) S/P carotid [...] No weakness. Gait: Gait normal. Latest Ref Rng 05/31/2024 WBC 3.70 - 11.00 k/uL 6.32 [...] Abs Lymph 1.00 - 4.00 k/uL 1.04 Grayson% % 10.0 Abs Grayson <0.87 k/uL 0.63 Eosin% % 1.9 Abs Eosin <0.46 k/uL 0.12 Baso% % 0.6 Abs Baso <0.11 k/uL 0.04 Immature Gran % % 0.5 IMMATURE GRANS (ABS) <0.10 k/uL 0.03 NRBC /100 WBC 0.0 Absolute nRBC <0.01 k/uL <0.01 DTYPE Auto Color Yellow Yellow Clarity Clear Clear Glucose, Urine Negative Negative Bilirubin, Urine Negative Negative Ketones, Urine Negative Negative Specific [place], Ur 1.005 - 1.030 1.016 Hemoglobin/Blood,Ur Negative [...] BASIC Dallas Reed MD documented in this encounterRegency Hospital [facility]edo09-04-2024 [facility] Medical Records Department [address] [place] [address] Discharge Summary 05/24/24 1137 MR#: [id number] Acct: [id number] Name: LEANA CAMEJO Rep #: [id number] : 1940 84 From: Brant Alcantara MD PCP: Dr. 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 No change. Calcified plaque noted at the origin of vertebral arteries with possible mild stenosis unchanged. Echocar (more content not included)...[facility]09-03-2024 Note [facility]09-03-[facility] History of Present illness Narrative* Adrian Warner [...] vertigo previously and was treated successfully by [facility]. When he got up he just [...] 08/26/2017: Abdominal aortic aneurysm (AAA) without rupture ([facility]) Comment: 08/2017: 3.7 cm No date: Anemia 10/20/2016: Chronic diastolic CHF (congestive heart failure) ([facility]) Comment: Sees Dr. Montes 02/20/2014: CKD (chronic kidney disease) stage 3, GFR 30-59 ml/min ([facility]) 02/04/2023: Collagenous colitis 09/12/2021: COVID-19 08/26/2017: DDD [...] Calcium], Lipitor [Atorvastatin Calcium], Lisinopril, and Statins [Nathwdx-Alw-Hjj Reductase Inhibitors] MEDICATIONS Current Outpatient Medications Medication [...] to ED. Patient will drive himself to [facility] ED. Again, patient refuses against medical advice. The patient indicates understanding of these issues and agrees with the plan. Reviewed red flags and when to seek care sooner. Adrian Warner PA-C documented in this encounterRegency Hospital [facility]09-03-2024 Telephone encounter Note * Telephone Encounter - [...] a provider today 05-23-24. Perlita Tang LPN [facility]09-03-2024 Miscellaneous Notes* Telephone Encounter - Perlita Tang LPN - 05/23/2024 12:12 PM EDT Pt saw Dr. Dai ENT today for what he thought was vertigo. [...] 05-23-24. Perlita Tang LPN documented in this encounterRegency Hospital [facility]edo07-19-2024 Telephone encounter Note * Telephone Encounter - Maribell Huston LPN - 04/07/2024 1:53 PM EDT Fax rec'd from Dr. Davis's office notifying pcp that pt cancelled 04/24/[address] Davis.Fax to pcp then to medical records for scanning. [facility]07-19-2024 Miscellaneous Notes* Telephone Encounter - Maribell Huston LPN - 04/07/2024 1:53 PM EDT Fax rec'd from Dr. Davis's office notifying pcp that pt cancelled 04/24/[address] Davis.Fax to pcp then to medical records for scanning. documented in this encounterRegency Hospital [facility]edo07-03-2024 Telephone encounter Note * Telephone Encounter - [...] Shirley Mehta March 22, 2024 1:17 PM [facility]07-03-2024 Miscellaneous Notes* Telephone Encounter - Shirley Corey [...] 22, 2024 1:17 PM documented in this encounterRegency Hospital [facility]edo06-22-2024 History of Present illness Narrative* Prema Agee APRN.CNP - 03/11/2024 11:35 AM EDT This note was created using [employer]riter. Subjective Leana Camejo is a 84 year [...] Level: 3 - Low documented in this encounterRegency Hospital [facility]edo06-18-2024 History of Present illness Narrative* Fide Goff [...] pounds in a week? Yes Based on catering convention services manager, the following disposition is advised: No symptoms or symptoms present, not severe. Routed to: No Action Needed PAVEL Education Provided this Outreach: No Fide Goff RN March 07, 2024 4:54 PM documented in this encounterRegency Hospital [facility]edo06-17-2024 Telephone encounter Note * Telephone Encounter - [...] Cathleen Mehta March 06, 2024 9:00 AM [facility]06-17-2024 Miscellaneous Notes* Telephone Encounter - Cathleen Ortega [...] Cathleen Mehta March 06, 2024 9:00 AM documented in this encounterRegency Hospital [facility]edo06-17-2024 Telephone encounter Note * Telephone Encounter - Adriana Short LPN - 03/06/2024 8:56 AM EDT Patient calling asking to have referral faxed to Dr Flaherty office at [phone]. Patient said his shoulder pain is bothering him quite a lot. Printed office notes, insurance card copies, face sheet, xray reports, consult and faxed as requested. Patient said he has appt in April. [facility]06-17-2024 Miscellaneous Notes* Telephone Encounter - Adriana Short LPN - 03/06/2024 8:56 AM EDT Patient calling asking to have referral faxed to Dr Flaherty office at [phone]. Patient said his shoulder pain is bothering him quite a lot. Printed office notes, insurance card copies, face sheet, xray reports, consult and faxed as requested. Patient said he has appt in April. documented in this encounterRegency Hospital [facility]edo06-11-2024 Telephone encounter Note * Telephone Encounter - Shahana Delgado LPN - 02/29/2024 2:53 PM EDT Pt calls to request shoulder xray results and insurance cards be faxed to [facility]. Faxed to: [phone] as requested. Shahana Delgado LPN [facility]06-11-2024 Miscellaneous Notes* Telephone Encounter - Shahana Delgado LPN - 02/29/2024 2:53 PM EDT Pt calls to request shoulder xray results and insurance cards be faxed to [facility]. Faxed to: [phone] as requested. Shahana Delgado LPN documented in this encounterRegency Hospital [facility]edo05-23-2024 Telephone encounter Note * Telephone Encounter - [...] Please advise. Thank you. Damir Summers MA. [facility]05-23-2024 Miscellaneous Notes* Telephone Encounter - Damir Summers [...] Thank you. Lorena Kimbrough. documented in this encounterRegency Hospital [facility]edo05-23-2024 Telephone encounter Note * Telephone Encounter - [...] found Please advise. Thank you. Lorena Kimbrough. [facility]05-22-2024 History of Present illness Narrative* Ayla Carrasquillo PA-C - 02/09/2024 5:09 PM EDT This note was created using NoteWriter. Geno Camejo is a 84 year old male. HPI Presents with a chief complaint of bilateral shoulder pain over the past 2 weeks. He states has been keeping him up at night. He states when he lays on 1 shoulder or the other it is very painful. He has tried some Tylenol hbof-vza-rxzytjs. No injury to his shoulders. He states [...] Date Abdominal aortic aneurysm (AAA) without rupture ([facility]) 08/26/201708/2017: 3.7 cm Anemia Chronic diastolic CHF (congestive heart failure) ([facility]) 10/20/[address] Montes CKD (chronic kidney disease) stage 3, GFR 30-59 ml/min ([facility]) 02/20/2014 Collagenous colitis 02/04/2023 COVID-19 09/12/2021 DDD [...] 2 LIMB 04/07/2023 AAA stent graft repair, [facility] LAPAROSCOPY SURG RPR INITIAL INGUINAL HERNIA 07/29/2015 LAPS RPR RECURRENT INCISIONAL HERNIA REDUCIBLE 07/29/2015 PAST SURGICAL HISTORY OF 09/09/2015 left total knee arthroplasty PAST SURGICAL HISTORY OF 09/15/2017 micro-disectomy L4-L5, with microcompression bilaterally. PAST SURGICAL HISTORY OF Right 12/16/2018 Repair of complex lateral meniscus tear, Right knee REPAIR UMBILICAL HERNIA [address] Dr. Henry STRESS TEST 09/03/2017 normal FAMILY [...] LEFT Ayla Carrasquillo PA-C documented in this encounterRegency Hospital [facility]edo05-22-2024 History of Present illness Narrative* Kae Alexander [...] PATIENT PRESENTS WITH AN IMPLANTABLE OR ATTACHED TIN STACKER: No RADIOLOGY DEPARTMENT: General X-ray: Exam(s) Completed: Upper Extremity X- Ray(s): Shoulder, AP / TRUE AP bilateral Scapular Y view PERIPHERAL IV DATA: Not applicable SIGNED BY: RT Warner(R) February 09, 2024 4:32 PM documented in this encounterRegency Hospital [facility]edo04-29-2024 History of Present illness Narrative* Shaun Kowalski MD - 01/17/2024 8:30 AM EDT Images from the original note were not included. Heart, Vascular and Thoracic [place] DEPARTMENT OF VASCULAR SURGERY OUTPATIENT VISIT DATE [...] Date Abdominal aortic aneurysm (AAA) without rupture ([facility]) 08/26/201708/2017: 3.7 cm Anemia Chronic diastolic CHF (congestive heart failure) ([facility]) 10/20/[address] Montes CKD (chronic kidney disease) stage 3, GFR 30-59 ml/min ([facility]) 02/20/2014 Collagenous colitis 02/04/2023 COVID-19 09/12/2021 DDD [...] 2 LIMB 04/07/2023 AAA stent graft repair, [facility] LAPAROSCOPY SURG RPR INITIAL INGUINAL HERNIA [...] 2024 TIME: 8:30 AM documented in this encounterRegency Hospital [facility]edo04-22-2024 Instructions* Patient Instructions* Darya Borden APRN.CNP - 01/10/2024 9:12 AM EDT Fluticasone (Flonase) nasal spray documented in this encounterRegency Hospital Toledo04-22-2024 History of Present illness Narrative* Darya Borden APRN.CNP - 01/10/2024 9:00 AM EDT CC: Patient [...] latest scan. Referred to [facility] vascular in [place]. Review of Systems See HPI PAST MEDICAL HISTORY Diagnosis Date Abdominal aortic aneurysm (AAA) without rupture ([facility]) 08/26/201708/2017: 3.7 cm Anemia Chronic diastolic CHF (congestive heart failure) ([facility]) 10/20/[address] Montes CKD (chronic kidney disease) stage 3, GFR 30-59 ml/min ([facility]) 02/20/2014 Collagenous colitis 02/04/2023 COVID-19 09/12/2021 DDD [...] 2 LIMB 04/07/2023 AAA stent graft repair, [facility] LAPAROSCOPY SURG RPR INITIAL INGUINAL HERNIA [...] Calcium], Lipitor [Atorvastatin Calcium], Lisinopril, and Statins [Okgqwbw-Quq-Ggw Reductase Inhibitors] MEDICATIONS ascorbic acid, vitamin C, [...] 441.4, ICD10: I71.40 Follow-up with vascular at [place] [facility] as scheduled Prescription instructions reviewed with patient as applicable. Potential red flag symptoms discussed with the patient. Reviewed appropriate action plan to take if red flag symptoms occur. Patient agreeable to treatment plan. Darya Borden APRN.SPA ATTENDANT documented in this encounterRegency Hospital Toledo04-22-2024 Nurse Note* Damir Summers MA - 01/10/2024 8:59 AM EDT 01/10/2024: Home BP Cuff Validated. Home BP: 127/58 Office BP: 112/72 [facility]04-22-2024 Nurse Note* Damir Summers MA - 01/10/2024 8:59 AM EDT 01/10/2024: Home BP Cuff Validated. Home BP: 127/58 Office BP: 112/72 documented in this encounterRegency Hospital [facility]edo04-12-2024 Miscellaneous Notes* Telephone Encounter - Yulisa Minaya - 12/31/2023 9:26 AM EDT Referring Physician - Omid Perez MD Requesting Physician - Dr. Shaun Kowalski Diagnosis: Aneurysm of Iliac Artery Images have been pushed electronically and records. documented in this encounterRegency Hospital [facility]edo03-10-2024 History of Present illness Narrative* Fide Goff [...] goal align with programs offered at the [facility]? ADL's updated: No Are you experiencing any [...] pounds in a week? No Based on catering convention services manager, the following disposition is advised: No symptoms or symptoms present, not severe. Routed to: No Action Needed PAVEL Education Provided this Outreach: No Fide Goff RN November 28, 2023 3:58 PM documented in this encounterRegency Hospital [facility]edo11-21-2023 History of Present illness Narrative* Older, DUSTIN Lackey.SHAWNA - 08/10/2023 8:17 AM EST Leana Camejo [...] as PCP - General (Internal Medicine) Fide Goff, RN as Screen Cutter And Trimmer (Internal Medicine) Outside specialists seen: Cardiology- Dr. Felipe Medication Assistant- Dr. Dominguez Vascular- Dr. Perez GI- Dr. [...] provided Darya Singh APRN.CNP documented in this encounterRegency Hospital [facility]edo11-21-2023 Instructions* Patient Instructions* Darya Singh APRN.CNP - 08/10/2023 8:17 AM EST Screening schedule [...] review all the medicines you take, even tmyt-rad-xhhkipy medicines. As you get older, the way [...] have certain medical conditions. documented in this encounterRegency Hospital [facility]edo10-06-2023 Miscellaneous Notes* Telephone Encounter - Damir Summers [...] notify patient. Cathleen Mehta documented in this encounterRegency Hospital Toledo08-31-2023 History of Present illness Narrative* Fide Goff [...] to talk about today? No Based on catering convention services manager, the following disposition is advised: No symptoms or symptoms present, not severe. Routed to: No Action Needed PAVEL Education Provided this Outreach: Yes Fide Goff RN May 20, 2023 4:27 PM documented in this encounterRegency Hospital [facility]edo07-28-2023 History of Present illness Narrative* Dallas Reed MD - 04/16/2023 10:38 AM EDT This note was created using [employer]. Subjective Leana Camejo is a 83 year [...] (HCC) Chronic Diastolic Chf (Congestive Heart Failure) ([facility]) Allergic Rhinitis Abdominal Aortic Aneurysm (Aaa) Without Rupture ([facility]) Overweight (Bmi 25.0-29.9) S/P carotid [...] area twice daily. APPLY TO AFFECTED AREA in-5-ihb-mpn-A3-[id number]-XZ-D-2-qzx 500-1,000-500 mg-unit-mcg cap Take by mouth. DESENEX [...] Take 1 capsule by mouth once daily. [place] Q Plus glucosamine/chondr rich A sod (OSTEO [...] Perez. Dallas Reed MD documented in this encounterRegency Hospital [facility]edo07-20-2023 Consult note Author Marianne Astudillo [facility] April 08, 2023 2:25pm Note Date/Time April 08, 2023 2:23 pm [facility] Medical Records Department [address] [place] [address] Counseling Note - Pharmacy 04/08/23 1421 MR#: [id number] Acct: [id number] Name: LEANA CAMEJO Rep #:[id number] : 1940 83 From: Marianne Astudillo PCP: Dr. Dallas Reed MD Status:A DM IN Y Location: [place] [address] Pharmacy MD Med Reconciliation Pharmacy Service has performed discharge medication reconciliation for this patient. No new medications at time of discharge review. Medications reviewed are from previously reported home medications. The patient's discharge medication list was reviewed for discrepancies and discrepancies were resolved. Medications at Discharge Home Medications [id number]-[id number]-[id number] 500 mg-1,000 unit-500 mcg cap 1 ea [...] 9 mg PO DAILY BOWELS 02/23/23 04/08/23 1425 <Electronically signed by Marianne Astudillo > Date _ Marianne Astudillo Cosigner Signature (if applicable): Date CC: ~ Signed [facility] Work Phone: 1(394) 834-825507-20-2023 Discharge summary Author Omid Perez [facility] April 08, 2023 6:30am Note Date/Time April 07, 2023 6:29 am [facility] Medical Records Department [address] [place] [address] Instructions for Home/Discharge Instructions 04/07/23 0627 MR#: [id number] Acct: [id number] Name: LEANA CAMEJO Rep #:[id number] : [...] With: Omid Perez MD When: Please call [phone] for follow-up office appointment approximately 10days Test [...] PO QODAY PRN (Reason: heart health) Held [id number]-[id number]-B-6-pkl 1 EACH capsule 1 ea PO DAILY Hold Instructions: Resume on 04/21/23. Patient Comments: supplement Other Ambulatory Orders: CTA Abd/Pelvis W/WO Contrast (Routine) Timeframe: [id number] Facility: [facility] - Location: Cat Scan, [facility] Ordered By: Benita PEREZ Referrals / Follow Up: Dallas Reed MD [Primary Care Provider] - 04/08/23 0630<Electronically signed by Omid Perez MD>Omid Perez MD CC: Dr. Dieter Christianson MD; Dr. Dallas Reed MD ~ Signed [facility] Work Phone: 1(911) 926-528307-20-2023 Progress note Author Omid Perez [facility] April 08, 2023 6:29am Note Date/Time April 08, 2023 6:30 am [facility] Medical Records Department [address] [place] [address] Progress Note - Surgery 04/08/23627 MR#: [id number] Acct: [id number] Name: LEANA CAMEJO Rep #:[id number] : 1940 83 From: Omid Perez MD PCP: Dr. Dallas Reed MD Status:A DM IN Location: [place] [address] Subjective Subjective Is doing well. No back [...] 71.5 H, Lymph % (Auto) 15.5 L, Grayson % (Auto) 9.7, Eos % (Auto) 1.6, [...] Cosigner Signature (if applicable): CC: ~ Signed [facility] Work Phone: 1(215) 296-930307-19-2023 Progress note Author Omid Perez [facility] April 07, 2023 3:21pm Note Date/Time April 07, 2023 3:21 pm [facility] Medical Records Department [address] [place] [address] Progress Note - Surgery 04/07/23 1519 MR#: [id number] Acct: [id number] Name: LEANA CAMEJO Rep #:[id number] : 1940 83 From: Omid Perez MD PCP: Dr. Dallas Reed MD Status:A DM IN Location: [place] [address]- 1 Subjective Subjective Notes some back pain. Thinks [...] Cosigner Signature (if applicable): CC: ~ Signed [facility] Work Phone: 1(395) 188-812507-19-2023 Procedure [facility] 04-07-2023 History and physical note Author Omid Perez [facility] April 07, 2023 5:46am Note Date/Time April 07, 2023 5:46 am [facility] Medical Records Department [address] [place] [address] History & Physical Exam 04/07/23 0545 MR#: [id number] Acct: [id number] Name: LEANA CAMEJO Rep #:[id number] : 1940 83 From: Omid Perez MD PCP: Dr. Dallas Reed MD Status:A DM IN Location: [facility] A-1 History and Physical Date of Admission: 04/07/23 Fashion Coordinator Required: No Is patient in pain?: No Allergies lisinopril Allergy (Intermediate, Verified 03/05/23 07:35) Rashatorvastatin calcium [From Lipitor] Allergy (Verified 03/05/23 07:35) Otherclonidine Allergy (Verified 03/05/23 07:35) Unknownrosuvastatin calcium [From Crestor] Allergy (Verified 03/05/23 07:35) AsapcKggxred-CUL-PmY Reductase Inhibitor [Rjweawm-Ryu-Puv Reductase Inhibitor] Allergy (Verified 03/05/23 07:35) Other Medications lvzjf-2-njd-uyd-A3-[id number]-IR-Q1-adjkvyvjluh 500 mg-1,000 unit-500 mcg cap 1 ea [...] Aspirin Regimen) 81 mg PO QDAY PRN [facility] 05/13/22 [History Confirmed 03/05/23] budesonide 3 mg capsule,delayed,extended release cap PO 02/23/23 [History Confirmed 03/05/23] [facility] Medical History Abdominal aortic 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 [...] calcium [From Crestor] Allergy (Verified 02/23/23 09:38) DdlkkRgwhxny-QBT-UnE Reductase Inhibitor [Wknwbrk-Xbm-Crq Reductase Inhibitor] Allergy (Verified 02/23/23 09:38) Other Medications cwkgf-6-ght-wiu-J6-S44H69-XO-O9-wpikhypbyyv 500 mg-1,000 unit-500 mcg cap 1 ea [...] He states he was worked up at [facility] in [facility] had a colonoscopy and then [...] Aorta IVC Iliac vasculature or bypass grafts [address]. The exam was diagnostic. Exam performed in [...] and welldeveloped Nutritional Appearance: average body habitus [facility] Head: normal to inspection Eyes General: [...] return. Copy: Dr. Dallas Perez M.D., F.A.C.S ROS General General: Yes weight change; No appetite, [...] Perez MD; Dr. Dallas Reed MD~ Signed [facility] Work Phone: [phone]) 172-667507-19-2023 Procedure [facility] 03-04-2023 History of Present illness Narrative* Cassandra Couch LPN - 03/04/2023 9:57 AM EDT Manual Readin/70 Pulse: 64 BP Fab average: 160/76 Pulse: 62 Repeat BP Check: 166/80 Pulse: 61 160/67 57 156/82 70 150/70 61 * Dallas Reed MD - 03/04/2023 9:49 AM EDT This note was created using [employer]. Subjective Leana Camejo is a 83 year [...] kidney disease) stage 3, GFR 30-59 ml/min ([facility]) Chronic Diastolic Chf (Congestive Heart Failure) ([facility]) Allergic Rhinitis Abdominal Aortic Aneurysm (Aaa) Without Rupture ([facility]) Overweight (Bmi 25.0-29.9) S/P carotid [...] area twice daily. APPLY TO AFFECTED AREA ex-7-gok-cqn-L4-[id number]-EJ-O-1-ddb 500-1,000-500 mg-unit-mcg cap Take by mouth. DESENEX [...] Take 1 capsule by mouth once daily. [place] Q Plus glucosamine/chondr rich A sod (OSTEO [...] CTA. Dallas Reed MD documented in this encounterRegency [facility]-15-[facility]23 Instructions* Patient Instructions* Adrian Warner PA-C - 02/01/2023 11:00 AM EDT Flonase or saline nasal spray. If you use Flonase and have any bloody noses, stop the flonase. documented in this encounterRegency Hospital [place]05-15-2023 History of Present illness Narrative* Adrian Warner PA-C - 02/01/2023 10:54 AM EDT 02/01/2023 Patient presents with: Ear Problem: ear pressure, hard of hearing x 1 week SUBJECTIVE: This is a 83 year old that is here today for Complaint(s) of ear pressure and fullness REESE. Recently flew home from [place]. Having trouble hearing. Not wearing hearing aids. Also having sinus pressure and congestion x 2 weeks. Denies chest pain, SOB, wheezing, ear pain, sore throat. Patient admits to using Sinex regularly the last week +. PAST MEDICAL HISTORY Diagnosis Date Abdominal aortic aneurysm (AAA) without rupture ([facility]) 08/26/201708/2017: 3.7 cm Anemia Chronic diastolic CHF (congestive heart failure) ([facility]) 10/20/[address] Montes CKD (chronic kidney disease) stage 3, GFR 30-59 ml/min ([facility]) 02/20/2014 COVID-19 09/12/2021 DDD (degenerative disc disease), lumbar 08/26/2017 Diarrhea Diverticulosis of colon (without mention of hemorrhage) Hematoma of right iliopsoas muscle 06/21/2019 Internal hemorrhoids without mention of complication Lumbar radiculopathy 08/26/2017 Mixed hyperlipidemia Hyperlipidemia S/P carotid endarterectomy right 01/20/2021 Unspecified essential hypertension Essential hypertension ALLERGIES Clonidine, Crestor [Rosuvastatin Calcium], Lipitor [Atorvastatin Calcium], Lisinopril, and Statins [Jjubhss-Bdd-Lhz Reductase Inhibitors] MEDICATIONS Current Outpatient Medications Medication Sig budesonide, enteric coated (ENTOCORT EC) 3 mg 24 hr capsule Take 3 capsules by mouth once daily. triamcinolone acetonide (KENALOG) 0.1 % cream apply to AFFECTED AREAS OF THE UPPER EXTREMITIES TWICE DAILY FOR ... (REFER TO PRESCRIPTION NOTES). pimecrolimus (ELIDEL) 1 % cream Apply to affected area twice daily. APPLY TO AFFECTED AREA qc-9-jtw-qdt-K4-[id number]-GT-C-9-zox 500-1,000-500 mg-unit-mcg cap Take by mouth. DESENEX [...] Take 1 capsule by mouth once daily. [place] Q Plus glucosamine/chondr rich A sod (OSTEO [...] sooner. Adrian Warner PA-C documented in this encounterRegency Hospital [place]05-02-2023 Miscellaneous Notes* Telephone Encounter - Lorena Stubbs Ma - 01/19/2023 3:49 PM EDT Approved, pharmacy notified Submitted budesonide auth to insurance, pending response Lorena Stubbs CMA documented in this encounterRegency Hospital [place]04-28-2023 Nurse Note* Cathleen Rodriguez RN - 01/15/2023 12:[address] Rodriguez at bedside to speak to patient. Verbalizes understanding. OK to d/c. [facility] Nurse Note* Cathleen Rodriguez RN - 01/15/2023 12:[address] Rodriguez at bedside to speak to patient. Verbalizes understanding. OK to d/c. documented in this encounterRegency Hospital [place]04-28-2023 History and physical note * Lisa Rodriguez [...] MAC Additional Comments: None Lisa Rodriguez MD [facility] Work Phone: [phone]) 987-444904-28-2023 History and physical note* Lisa Rodriguez MD [...] None Lisa Rodriguez MD documented in this encounterRegency Hospital [facility]04-20-2023 Instructions* Patient Instructions* Lisa Rodriguez MD - [...] If you do not have a responsible racing car driver (family member or friend) with [...] your exam. 2 08/2019 documented in this encounterRegency Hospital [facility]04-20-2023 History of Present illness Narrative* Lisa Rodriguez [...] nausea, vomiting, loss of appetite, hematemesis, bleeding CA, unexplained weight loss, tenesmus, nocturnal diarrhea. His stool calprotectin was elevated. C diff was negative. He had screening colonoscopy in May 2020 which was unremarkable. PAST MEDICAL HISTORY Diagnosis Date Abdominal aortic aneurysm (AAA) without rupture ([facility]) 08/26/201708/2017: 3.7 cm Anemia Chronic diastolic CHF (congestive heart failure) ([facility]) 10/20/[address] Montes CKD (chronic kidney disease) stage 3, GFR 30-59 ml/min ([facility]) 02/20/2014 COVID-19 09/12/2021 DDD (degenerative disc disease), [...] area twice daily. APPLY TO AFFECTED AREA hh-1-tys-qhs-V6-V72I12-ZZ-E-6-bcs 500-1,000-500 mg-unit-mcg cap Take by mouth. DESENEX [...] Take 1 capsule by mouth once daily. [place] Q Plus glucosamine/chondr rich A sod (OSTEO [...] 01/07/23 TIME: 4:06 PM documented in this encounterRegency Hospital [facility]04-12-2023 Instructions* Patient Instructions* Dallas Reed MD - 12/30/2022 12:27 PM EDT AVOID DAIRY. documented in this encounterRegency Hospital [facility]04-12-2023 History of Present illness Narrative* Dallas Reed MD - 12/30/2022 12:15 PM EDT This note was created using [employer]riter. Subjective Leana Camejo is a 82 year old male. He started having diarrhea 12/19, with loose to watery, non bloody stools 2-4 times per day. He did not feel ill. His was not ill. There was no unusual food intake, antibiotic use, or travel. He went to [facility] last week and was advised [...] kidney disease) stage 3, GFR 30-59 ml/min ([facility]) Chronic Diastolic Chf (Congestive Heart Failure) ([facility]) Allergic Rhinitis Abdominal Aortic Aneurysm (Aaa) Without Rupture ([facility]) Overweight (Bmi 25.0-29.9) S/P carotid [...] Take 1 capsule by mouth once daily. [place] Q Plus glucosamine/chondr rich A sod (OSTEO [...] Perez. Dallas Reed MD documented in this encounterRegency Hospital [facility]10-14-2022 History of Present illness Narrative* Gavin Rivero APRN.SPA ATTENDANT - 07/03/2022 5:05 PM EDT Subjective HPI [...] Anemia Chronic diastolic CHF (congestive heart failure) ([facility]) 10/20/[address] Montes CKD (chronic kidney disease) stage 3, GFR 30-59 ml/min ([facility]) 02/20/2014 COVID-19 09/12/2021 DDD (degenerative disc disease), [...] Calcium], Lipitor [Atorvastatin Calcium], Lisinopril, and Statins [Xtezgie-Etp-Tzw Reductase Inhibitors] MEDICATIONS losartan (COZAAR) 100 mg [...] Take 81 mg by mouth once daily. [place]-3 1,050 mg, Fish Oil, 1,050-1,200 mg cap Take by mouth twice daily. COMPOUNDED PRESCRIPTION Take 1 capsule by mouth once daily. [place] Q Plus glucosamine/chondr rich A sod (OSTEO [...] on Wednesday if symptoms are not improvingto hop picker supplies at lab. Patient was educated [...] of care. This note was generated using [employer] software. It may contain errors in wording, punctuation, or spelling. Gavin Rivero APRN.SHAWNA documented in this encounterRegency Hospital [facility]09-06-2022 Miscellaneous Notes* Telephone Encounter - Maribell Huston LPN - 05/26/2022 11:47 AM EDT Pt has refills of carvedilol. The others would be needed. * Telephone Encounter - Vicky Mehta - 05/26/2022 8:59 AM EDT Pharmacy verified in [facility] Patient has been identified by name and [...] (163 lb) Not applicable Please advise. Vicky Mehta documented in this encounterRegency Hospital [facility]06-22-2022 Miscellaneous Notes* Telephone Encounter - Vicky Garcia Pss - 03/11/2022 9:18 AM EDT Patient had stopped taking this med, but spoke to his yard clerk who would like him to continue taking, so patient is in need of a new refill. Pharmacy is the same [facility] as the other med. colestipol (COLESTID) 1 gram tablet (Discontinued) 180 tablet 1 02/14/2021 07/09/2021 Sig: Take 1 tablet by mouth twice daily. For cholesterol. * Telephone Encounter - Vicky Garcia Pss - 03/11/2022 9:17 AM EDT Pharmacy verified in [facility] Patient has been identified by name and [...] Vicky Garcia Pss 1 documented in this encounterRegency Hospital [facility]06-01-2022 Miscellaneous Notes* Telephone Encounter - Chrissy Worrell - 02/18/2022 8:24 AM EDT Patient given results and verbalized understanding of instructions given. Chrissy Worrell * Telephone Encounter - Elsie Boudreaux APRN.SHAWNA - 02/18/2022 7:38 AM EDT Please inform [...] Dr. Reed as well. documented in this encounterRegency Hospital [facility]05-31-2022 History of Present illness Narrative* Nona Maloney APRN.SHAWNA - 02/17/2022 11:48 AM EDT CC: Patient [...] kidney disease) stage 3, GFR 30-59 ml/min ([facility]) 02/20/2014 COVID-19 09/12/2021 DDD (degenerative disc disease), [...] Calcium], Lipitor [Atorvastatin Calcium], Lisinopril, and Statins [Ubpnihc-Olw-Avo Reductase Inhibitors] MEDICATIONS carvedilol (COREG) 12.5 mg [...] Take 81 mg by mouth once daily. [place]-3 1,050 mg, Fish Oil, 1,050-1,200 mg cap Take by mouth twice daily. COMPOUNDED PRESCRIPTION Take 1 capsule by mouth once daily. [place] Q Plus glucosamine/chondr rich A sod (OSTEO [...] plan. Nona Maloney APRN.SHAWNA documented in this encounterRegency Hospital [facility]05-24-2022 History of Present illness Narrative* Janelle Sanchez [...] PCP. Janelle Sanchez LPN documented in this encounterRegency Hospital [facility]05-23-2022 History of Present illness Narrative* Denver Elizalde RN - 02/09/2022 12:59 PM EDT inSight CDM Engagement Provider Action/FYI: Call to Pt left a message to verify CHF/ CKD symptom status and needs provided. Insight Questionnaire location reminder provided. Contact Made with Patient: No, second attempt, left message. Blaise Camejo. This is Fide Goff RN your Emergency Management Program Specialist from the [facility]. I am calling to check in with you concerning the MyChart questionnaire you have been receiving from me. I will call you again next week and am looking forward to speaking with you. (Care Coordinatorenters next week's date in next patient outreach) Fide Goff RN February 09, 2022 12:59 PM documented in this encounterRegency Hospital [facility]05-20-2022 History of Present illness Narrative* Denver Elizalde RN - 02/06/2022 3:38 PM EDT [employer] CDM Engagement Provider Action/FYI: Call to Pt left message to verify CHF/ CKD or other symptom status and needs. Contact Made with Patient: No, first attempt, left message. Blaise Camejo. This is Fide Goff RN your Emergency Management Program Specialist from the [facility]. I am calling to check in with you concerning the MyChart questionnaire you have been receiving from me. I will call you again tomorrow and am looking forward to speaking with you. (Emergency Management Program Specialist enters next day in next patient outreach) Fide Goff RN February 06, 2022 3:38 PM documented in this encounterRegency Hospital [facility]04-26-2022 History of Present illness Narrative* Dallas Reed MD - 01/13/2022 8:56 AM EDT This note was created using [employer]. Subjective Leana Camejo is a 82 year old male. He recovered from Covid in August. He went to [facility] in [facility] for IV vitamin infusions. He just [...] Rhinitis Abdominal Aortic Aneurysm (Aaa) Without Rupture ([facility]) Overweight (Bmi 25.0-29.9) S/P carotid [...] tablet by mouth twice daily with meals. [place]-3 1,050 mg, Fish Oil, 1,050-1,200 mg cap Take by mouth twice daily. COMPOUNDED PRESCRIPTION Take 1 capsule by mouth once daily. [place] Q Plus glucosamine/chondr rich A sod (OSTEO [...] BASIC Dallas Reed MD documented in this encounterRegency Hospital [facility]04-26-2022 Evaluation note* Diagnosis Stage 3a chronic kidney disease (HCC)- Primary Chronic diastolic CHF (congestive heart failure) (HCC) Chronic diastolic heart failure Abdominal aortic aneurysm (AAA) without rupture (HCC) BENIGN HYPERTENSION Essential hypertension, benign Other hyperlipidemia documented in this encounter [facility]03-21-[facility]22 History of Present illness Narrative* Denver Elizalde RN - 12/08/2021 5:06 PM EDT [employer] CDM Engagement Provider Action/FYI: Spk with Pt who reports no CHF / CKD symptoms or needs. Contact Made with Patient: Yes Patient identified by name and . Discussed care with patient Blaise turner name is Fide Goff RN your Emergency Management Program Specialist [facility] I am reaching out today because I [...] 08, 2021 5:06 PM documented in this encounterRegency Hospital [facility]12-07-2017 History of Past illness Narrative* Problem Noted Date Resolved Date DDD (degenerative disc disease), lumbar 08/26/20 17 03/15/2018 Lumbar radiculopathy 08/26/2017 03/15/2018 Recurrent ventral incisional hernia 07/01/2015 08/26/2017 Unilateral inguinal hernia without obstruction o r gangrene 07/01/2015 08/26/2017 Well adult exam 01/09/2015 03/15/2018 Overview: last done 01/09/2015 Aneurysm of abdominal aorta 01/11/201212/20 documented as of this encounter (statuses as of 12/08/2021) [facility] History of Past illness Narrative* Problem Noted Date Resolved Date DDD (degenerative disc disease), lumbar 08/26/20 17 03/15/2018 Lumbar radiculopathy 08/26/2017 03/15/2018 Recurrent ventral incisional hernia 07/01/2015 08/26/2017 Unilateral inguinal hernia without obstruction o r gangrene 07/01/2015 08/26/2017 Well adult exam 01/09/2015 03/15/2018 Overview: last done 01/09/2015 Aneurysm of abdominal aorta 01/11/201212/20 documented as of this encounter (statuses as of 01/13/2022) [facility] History of Past illness Narrative* Problem Noted Date Resolved Date DDD (degenerative disc disease), lumbar 08/26/20 17 03/15/2018 Lumbar radiculopathy 08/26/2017 03/15/2018 Recurrent ventral incisional hernia 07/01/2015 08/26/2017 Unilateral inguinal hernia without obstruction o r gangrene 07/01/2015 08/26/2017 Well adult exam 01/09/2015 03/15/2018 Overview: last done 01/09/2015 Aneurysm of abdominal aorta 01/11/201212/20 documented as of this encounter (statuses as of 02/06/2022) [facility] History of Past illness Narrative* Problem Noted Date Resolved Date DDD (degenerative disc disease), lumbar 08/26/20 17 03/15/2018 Lumbar radiculopathy 08/26/2017 03/15/2018 Recurrent ventral incisional hernia 07/01/2015 08/26/2017 Unilateral inguinal hernia without obstruction o r gangrene 07/01/2015 08/26/2017 Well adult exam 01/09/2015 03/15/2018 Overview: last done 01/09/2015 Aneurysm of abdominal aorta 01/11/201212/20 documented as of this encounter (statuses as of 02/09/2022) [facility] of Past illness Narrative* Problem Noted Date Resolved Date DDD (degenerative disc disease), lumbar 08/26/20 17 03/15/2018 Lumbar radiculopathy 08/26/2017 03/15/2018 Recurrent ventral incisional hernia 07/01/2015 08/26/2017 Unilateral inguinal hernia without obstruction o r gangrene 07/01/2015 08/26/2017 Well adult exam 01/09/2015 03/15/2018 Overview: last done 01/09/2015 Aneurysm of abdominal aorta 01/11/201212/20 documented as of this encounter (statuses as of 02/10/2022) [facility] of Past illness Narrative* Problem Noted Date Resolved Date DDD (degenerative disc disease), lumbar 08/26/20 17 03/15/2018 Lumbar radiculopathy 08/26/2017 03/15/2018 Recurrent ventral incisional hernia 07/01/2015 08/26/2017 Unilateral inguinal hernia without obstruction o r gangrene 07/01/2015 08/26/2017 Well adult exam 01/09/2015 03/15/2018 Overview: last done 01/09/2015 Aneurysm of abdominal aorta 01/11/201212/20 documented as of this encounter (statuses as of 02/17/2022) [facility] of Past illness Narrative* Problem Noted Date Resolved Date DDD (degenerative disc disease), lumbar 08/26/20 17 03/15/2018 Lumbar radiculopathy 08/26/2017 03/15/2018 Recurrent ventral incisional hernia 07/01/2015 08/26/2017 Unilateral inguinal hernia without obstruction o r gangrene 07/01/2015 08/26/2017 Well adult exam 01/09/2015 03/15/2018 Overview: last done 01/09/2015 Aneurysm of abdominal aorta 01/11/201212/20 documented as of this encounter (statuses as of 02/18/2022) [facility] of Past illness Narrative* Problem Noted Date Resolved Date DDD (degenerative disc disease), lumbar 08/26/20 17 03/15/2018 Lumbar radiculopathy 08/26/2017 03/15/2018 Recurrent ventral incisional hernia 07/01/2015 08/26/2017 Unilateral inguinal hernia without obstruction o r gangrene 07/01/2015 08/26/2017 Well adult exam 01/09/2015 03/15/2018 Overview: last done 01/09/2015 Aneurysm of abdominal aorta 01/11/201212/20 documented as of this encounter (statuses as of 03/13/2022) [facility] of Past illness Narrative* Problem Noted Date Resolved Date DDD (degenerative disc disease), lumbar 08/26/20 17 03/15/2018 Lumbar radiculopathy 08/26/2017 03/15/2018 Recurrent ventral incisional hernia 07/01/2015 08/26/2017 Unilateral inguinal hernia without obstruction o r gangrene 07/01/2015 08/26/2017 Well adult exam 01/09/2015 03/15/2018 Overview: last done 01/09/2015 Aneurysm of abdominal aorta 01/11/201212/20 documented as of this encounter (statuses as of 05/26/2022) [facility] of Past illness Narrative* Problem Noted Date Resolved Date DDD (degenerative disc disease), lumbar 08/26/20 17 03/15/2018 Lumbar radiculopathy 08/26/2017 03/15/2018 Recurrent ventral incisional hernia 07/01/2015 08/26/2017 Unilateral inguinal hernia without obstruction o r gangrene 07/01/2015 08/26/2017 Well adult exam 01/09/2015 03/15/2018 Overview: last done 01/09/2015 Aneurysm of abdominal aorta 01/11/201212/20 documented as of this encounter (statuses as of 07/03/2022) [facility] of Past illness Narrative* Problem Noted Date Resolved Date DDD (degenerative disc disease), lumbar 08/26/20 17 03/15/2018 Lumbar radiculopathy 08/26/2017 03/15/2018 Recurrent ventral incisional hernia 07/01/2015 08/26/2017 Unilateral inguinal hernia without obstruction o r gangrene 07/01/2015 08/26/2017 Well adult exam 01/09/2015 03/15/2018 Overview: last done 01/09/2015 Aneurysm of abdominal aorta 01/11/201212/20 documented as of this encounter (statuses as of 12/31/2022) [facility]12-07-2017 History of Past illness Narrative* Problem Noted Date Resolved Date DDD (degenerative disc disease), lumbar 08/26/20 17 03/15/2018 Lumbar radiculopathy 08/26/2017 03/15/2018 Recurrent ventral incisional hernia 07/01/2015 08/26/2017 Unilateral inguinal hernia without obstruction o r gangrene 07/01/2015 08/26/2017 Well adult exam 01/09/2015 03/15/2018 Overview: last done 01/09/2015 Aneurysm of abdominal aorta 01/11/201212/20 documented as of this encounter (statuses as of 01/08/2023) [facility]12-07-2017 History of Past illness Narrative* Problem Noted Date Resolved Date DDD (degenerative disc disease), lumbar 08/26/20 03/15/2018 Lumbar radiculopathy 08/26/2017 03/15/2018 Recurrent ventral incisional hernia 07/01/2015 08/26/2017 Unilateral inguinal hernia without obstruction o r gangrene 07/01/2015 08/26/2017 Well adult exam 01/09/2015 03/15/2018 Overview: last done 01/09/2015 Aneurysm of abdominal aorta 01/11/201212/20 documented as of this encounter (statuses as of 01/13/2023) [facility]-07-2017 History of Past illness Narrative* Problem Noted Date Resolved Date DDD (degenerative disc disease), lumbar 08/26/20 17 03/15/2018 Lumbar radiculopathy 08/26/2017 03/15/2018 Recurrent ventral incisional hernia 07/01/2015 08/26/2017 Unilateral inguinal hernia without obstruction o r gangrene 07/01/2015 08/26/2017 Well adult exam 01/09/2015 03/15/2018 Overview: last done 01/09/2015 Aneurysm of abdominal aorta 01/11/201212/20 documented as of this encounter (statuses as of 01/19/2023) [facility]-07-2017 History of Past illness Narrative* Problem Noted Date Resolved Date DDD (degenerative disc disease), lumbar 08/26/20 17 03/15/2018 Lumbar radiculopathy 08/26/2017 03/15/2018 Recurrent ventral incisional hernia 07/01/2015 08/26/2017 Unilateral inguinal hernia without obstruction o r gangrene 07/01/2015 08/26/2017 Well adult exam 01/09/2015 03/15/2018 Overview: last done 01/09/2015 Aneurysm of abdominal aorta 01/11/201212/20 documented as of this encounter (statuses as of 01/20/2023) [facility]2017 History of Past illness Narrative* Problem Noted Date Resolved Date DDD (degenerative disc disease), lumbar 08/26/20 17 03/15/2018 Lumbar radiculopathy 08/26/2017 03/15/2018 Recurrent ventral incisional hernia 07/01/2015 08/26/2017 Unilateral inguinal hernia without obstruction o r gangrene 07/01/2015 08/26/2017 Well adult exam 01/09/2015 03/15/2018 Overview: last done 01/09/2015 Aneurysm of abdominal aorta 01/11/201212/20 documented as of this encounter (statuses as of 02/01/2023) [facility]2017 History of Past illness Narrative* Problem Noted Date Resolved Date DDD (degenerative disc disease), lumbar 08/26/20 17 03/15/2018 Lumbar radiculopathy 08/26/2017 03/15/2018 Recurrent ventral incisional hernia 07/01/2015 08/26/2017 Unilateral inguinal hernia without obstruction o r gangrene 07/01/2015 08/26/2017 Well adult exam 01/09/2015 03/15/2018 Overview: last done 01/09/2015 Aneurysm of abdominal aorta 01/11/201212/20 documented as of this encounter (statuses as of 03/04/2023) [facility]2017 History of Past illness Narrative* Problem Noted Date Diagnosed Date Resolved Date DDD (degenerative disc disease), lumbar 08/26/2017 03/15/2018 Lumbar radiculopathy 08/26/2017 018 Recurrent ventral incisional hernia 07/01/2015 08/26/2017 Unilateral inguinal hernia w ithout obstruction or gangrene 07/01/2015 08/26/2017 Well adult exam 01/09/2015 03/15/2018 Overview: last done 01/09/2015 Aneurysm of abdominal aorta 01/11/2012 01/12/2013 documented as of this encounter (statuses as of 04/16/2023) [facility]2017 History of Past illness Narrative* Problem Noted Date Diagnosed Date Resolved Date DDD (degenerative disc disease), lumbar 08/26/2017 03/15/2018 Lumbar radiculopathy 08/26/2017 018 Recurrent ventral incisional hernia 07/01/2015 08/26/2017 Unilateral inguinal hernia w ithout obstruction or gangrene 07/01/2015 08/26/2017 Well adult exam 01/09/2015 03/15/2018 Overview: last done 01/09/2015 Aneurysm of abdominal aorta 01/11/2012 01/12/2013 documented as of this encounter (statuses as of 05/21/2023) [facility]-2017 History of Past illness Narrative* Problem Noted Date Diagnosed Date Resolved Date DDD (degenerative disc disease), lumbar 08/26/2017 03/15/2018 Lumbar radiculopathy 08/26/2017 018 Recurrent ventral incisional hernia 07/01/2015 08/26/2017 Unilateral inguinal hernia w ithout obstruction or gangrene 07/01/2015 08/26/2017 Well adult exam 01/09/2015 03/15/2018 Overview: last done 01/09/2015 Aneurysm of abdominal aorta 01/11/2012 01/12/2013 documented as of this encounter (statuses as of 06/26/2023) [facility]2017 History of Past illness Narrative* Problem Noted Date Diagnosed Date Resolved Date DDD (degenerative disc disease), lumbar 08/26/2017 03/15/2018 Lumbar radiculopathy 08/26/2017 018 Recurrent ventral incisional hernia 07/01/2015 08/26/2017 Unilateral inguinal hernia w ithout obstruction or gangrene 07/01/2015 08/26/2017 Well adult exam 01/09/2015 03/15/2018 Overview: last done 01/09/2015 Aneurysm of abdominal aorta 01/11/2012 01/12/2013 documented as of this encounter (statuses as of 08/10/2023) [facility]2017 History of Past illness Narrative* Problem Noted Date Diagnosed Date Resolved Date DDD (degenerative disc disease), lumbar 08/26/2017 03/15/2018 Lumbar radiculopathy 08/26/2017 018 Recurrent ventral incisional hernia 07/01/2015 08/26/2017 Unilateral inguinal hernia w ithout obstruction or gangrene 07/01/2015 08/26/2017 Well adult exam 01/09/2015 03/15/2018 Overview: last done 01/09/2015 Aneurysm of abdominal aorta 01/11/2012 01/12/2013 documented as of this encounter (statuses as of 12/01/2023) [facility]2017 History of Past illness Narrative* Problem Noted Date Diagnosed Date Resolved Date DDD (degenerative disc disease), lumbar 08/26/2017 03/15/2018 Lumbar radiculopathy 08/26/2017 018 Recurrent ventral incisional hernia 07/01/2015 08/26/2017 Unilateral inguinal hernia w ithout obstruction or gangrene 07/01/2015 08/26/2017 Well adult exam 01/09/2015 03/15/2018 Overview: last done 01/09/2015 Aneurysm of abdominal aorta 01/11/2012 01/12/2013 documented as of this encounter (statuses as of 12/31/2023) [facility]2017 History of Past illness Narrative* Problem Noted Date Diagnosed Date Resolved Date DDD (degenerative disc disease), lumbar 08/26/2017 03/15/2018 Lumbar radiculopathy 08/26/2017 018 Recurrent ventral incisional hernia 07/01/2015 08/26/2017 Unilateral inguinal hernia w ithout obstruction or gangrene 07/01/2015 08/26/2017 Well adult exam 01/09/2015 03/15/2018 Overview: last done 01/09/2015 Aneurysm of abdominal aorta 01/11/2012 01/12/2013 documented as of this encounter (statuses as of 01/05/2024) [facility] [place] [facility] Diagnosis Onset Date Resolution Status 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 Abdominal aortic 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 Essential hypertension chron ic Hyperlipidemia [facility] Work Phone: Evaluation note* Diagnosis BENIGN HYPERTENSION- Primary Essential hypertension, benign [facility] Diagnosis Cough- Primary Acute upper respiratory infection, unspecified [facility]* Diagnosis Other hyperlipidemia [facility] Diagnosis BENIGN HYPERTENSION Essential hypertension, benign Chronic diastolic CHF (congestive heart failure) (HCC) Chronic diastolic heart failure [facility] Diagnosis Loose stools- Primary Abnormal feces [facility]* Diagnosis Diarrhea, unspecified type- Primary Chronic diastolic CHF (congestive heart failure) (HCC) Chronic diastolic heart failure Abdominal aortic aneurysm (AAA) without rupture, unspecified part (HCC) documented in this encounter [facility] note* Diagnosis Diarrhea, unspecified type documented in this encounter [facility] noteNo assessment information availableWGu[facility] Work Phone: Evaluation note* Diagnosis Acute maxillary sinusitis, recurrence not specified- Primary Acute otitis media, right Unspecified otitis media documented in this encounter [facility] note* Diagnosis Primary hypertension- Primary Unspecified essential hypertension Abdominal aortic aneurysm (AAA) without rupture, unspecified part (HCC) documented in this encounter [facility] note* Diagnosis Onset Date Resolution Status Abdominal aortic 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 Chronic renal failure, stage 3 (moderate) chronic Aneurysm, 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 Chronic renal failure, stage 3 (moderate) chronic Abdominal aortic 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 [facility] Work Phone: Evaluation note* Diagnosis Primary hypertension- Primary Unspecified essential hypertension S/P AAA repair Other postprocedural status documented in this encounter [facility] note* Diagnosis Onset Date Resolution Status Abdominal aortic 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 Chronic renal failure, stage 3 (moderate) chronic Aneurysm, 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 Chronic renal failure, stage 3 (moderate) chronic Abdominal aortic 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 Aneurysm, 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 [facility] Work Phone: Evaluation note* Diagnosis Stage 3 chronic kidney disease, unspecified whether stage 3a or 3b CKD (HCC)- Primary documented in this encounter [facility] note* Diagnosis BENIGN HYPERTENSION Essential hypertension, benign Chronic diastolic CHF (congestive heart failure) (HCC) Chronic diastolic heart failure documented in this encounter [facility] note* Diagnosis Onset Date Resolution Status Aneurysm, 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 Chronic renal failure, stage 3 (moderate) [facility] Work Phone: Evaluation note* Diagnosis Medicare annual wellness visit, subsequent- Primary Routine general medical examination at a health care facility documented in this encounter [facility] note* Diagnosis Encounter for other preprocedural examination- Primary [facility] [place] [facility]* Diagnosis Primary hypertension- Primary Unspecified essential hypertension Allergic rhinitis, unspecified seasonality, unspecified trigger Chronic diastolic CHF (congestive heart failure) (HCC) Chronic diastolic heart failure Stage 3a chronic kidney disease (HCC) Other hyperlipidemia Abdominal aortic aneurysm (AAA) without rupture, unspecified part (HCC) [facility] [place] [facility]* Diagnosis 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)- Primary S/P carotid endarterectomy right Other postprocedural status Mixed hyperlipidemia BPH with urinary obstruction Hypertrophy of prostate with urinary obstruction and other lower urinary tract symptoms (LUTS) Stage 3a chronic kidney disease (HCC) Chronic diastolic CHF (congestive heart failure) (HCC) Chronic diastolic heart failure [facility] [place] [facility]* Diagnosis Acute pain of both shoulders- Primary Acute pain of both shoulders [facility] [place] [facility]* Diagnosis BENIGN HYPERTENSION Essential hypertension, benign [facility] [place] [facility]* Diagnosis Chronic right shoulder pain- Primary Pain in joint, shoulder region [facility] [place] [facility]* Diagnosis Primary hypertension Unspecified essential hypertension [facility] [place] [facility]* Diagnosis Dizziness- Primary Dizziness and giddiness Chronic diastolic CHF (congestive heart failure) (HCC) Chronic diastolic heart failure BENIGN HYPERTENSION Essential hypertension, benign Weight loss Loss of weight Fatigue, unspecified type History of anemia Personal history of diseases of blood and blood-forming organs [facility] [place] [facility]* Diagnosis Acute pain of both shoulders [facility] [place] [facility]* Diagnosis TIA (transient ischemic attack)- Primary Unspecified transient cerebral ischemia S/P carotid endarterectomy right Other postprocedural status Chronic diastolic CHF (congestive heart failure) (HCC) Chronic diastolic heart failure Stage 3b chronic kidney disease (HCC) Thrombocytopenia (HCC) Thrombocytopenia, unspecified Abnormal TSH Other abnormal clinical finding Mixed hyperlipidemia [facility] [place] [facility]* Diagnosis Diarrhea, unspecified type [facility] [place] [facility]* Diagnosis Procedure not carried out- Primary Procedure not carried out for other reasons [facility] [place] [facility]* Diagnosis Spigelian hernia- Primary Other ventral hernia without mention of obstruction or gangrene 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 Other postprocedural status Pancreatic cyst Cyst and pseudocyst of pancreas Splenomegaly [facility] Medicare annual wellness visit, subsequent- Primary Routine general medical examination at a health care facility Hypothyroidism, unspecified type TIA (transient ischemic attack) Unspecified transient cerebral ischemia Mixed hyperlipidemia Primary hypertension Unspecified essential hypertension Screening for depression Encounter for screening examination for other mental health and behavioral disorders Spigelian hernia Other ventral hernia without mention of obstruction or gangrene Stage 3b chronic kidney disease (HCC) [facility] Diagnosis Subclinical hypothyroidism- Primary Other specified acquired hypothyroidism [facility] Diagnosis Primary hypertension Unspecified essential hypertension [facility] Diagnosis Abrasion of head, initial encounter- Primary [facility]* Diagnosis Contusion of scalp, subsequent encounter- Primary Fall, subsequent encounter Proximal leg weakness Other musculoskeletal symptoms referable to limbs [facility] Diagnosis Fall, subsequent encounter- Primary Contusion of scalp, subsequent encounter Proximal leg weakness Other musculoskeletal symptoms referable to limbs [facility] Diagnosis Fall, subsequent encounter- Primary Proximal leg weakness Other musculoskeletal symptoms referable to limbs Contusion of scalp, subsequent encounter [facility] Diagnosis Procedure not carried out- Primary Procedure not carried out for other reasons [facility] Diagnosis Left lower quadrant abdominal pain- Primary [facility] Diagnosis Left lower quadrant abdominal pain [facility] Diagnosis Essential hypertension- Primary Unspecified essential hypertension Chronic diastolic CHF (congestive heart failure) (HCC) Chronic diastolic heart failure [facility] Diagnosis Fall, subsequent encounter- Primary Proximal leg weakness Other musculoskeletal symptoms referable to limbs Contusion of scalp, subsequent encounter [facility] Diagnosis Fall, subsequent encounter- Primary Proximal leg weakness Other musculoskeletal symptoms referable to limbs Contusion of scalp, subsequent encounter [facility]* Diagnosis 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 Chronic diastolic CHF (congestive heart failure) (HCC) Chronic diastolic heart failure Stage 3b chronic kidney disease (HCC) Essential hypertension Unspecified essential hypertension [facility] [place] [facility]* Diagnosis Essential hypertension Unspecified essential hypertension [facility] [place] [facility]* Diagnosis Proximal leg weakness- Primary Other musculoskeletal symptoms referable to limbs [facility] Diagnosis Proximal leg weakness- Primary Other musculoskeletal symptoms referable to limbs Fall, subsequent encounter Contusion of scalp, subsequent encounter [facility] [place] [facility]* Diagnosis Proximal leg weakness- Primary Other musculoskeletal symptoms referable to limbs Fall, subsequent encounter Contusion of scalp, subsequent encounter [facility] [place] [facility]* Diagnosis Proximal leg weakness- Primary Other musculoskeletal symptoms referable to limbs Fall, subsequent encounter Contusion of scalp, subsequent encounter [facility] [place] [facility]* Diagnosis BENIGN HYPERTENSION Essential hypertension, benign [facility] [place] [facility]* Diagnosis Chronic diastolic CHF (congestive heart failure) (HCC) Chronic diastolic heart failure [facility] [place] [facility]* Diagnosis Heart failure, unspecified HF chronicity, unspecified heart failure type (HCC)- Primary [facility] [place] [facility]* Diagnosis 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 [facility] [place] [facility]* Diagnosis Subclinical hypothyroidism- Primary Other specified acquired hypothyroidism Fatigue, unspecified type Type II endoleak of aortic graft Anemia of chronic disease Anemia of other chronic disease Stage 3b chronic kidney disease (HCC) Essential hypertension Unspecified essential hypertension Chronic diastolic CHF (congestive heart failure) (HCC) Chronic diastolic heart failure [facility] [place] [facility]* Diagnosis Encounter for preprocedural laboratory examination- Primary Type II endoleak of aortic graft documented in this encounter [facility] note* Diagnosis 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 [facility] [place] [facility]* Diagnosis Essential hypertension Unspecified essential hypertension [facility] [place] [facility]* Diagnosis Fatigue, unspecified type- Primary Essential hypertension Unspecified essential hypertension Chronic diastolic CHF (congestive heart failure) (HCC) Chronic diastolic heart failure Anemia, unspecified type Subclinical hypothyroidism Other specified acquired hypothyroidism documented in this encounter [facility] Discharge instructions Additional Instructions 1. Take antibiotics until gone. 2 if you develop a fever, your pain becomes worse and spite of the antibiotics or unable to eat or drink anything return to the [facility] Work Phone: Reason for referral (narrative)* Outpatient Procedure (Routine) - Authorized Specialty Diagnoses / Procedures Referred By Trace t Referred To Contact [facility] Diagnoses Diarrhea, unspecified type Procedures COLONOSCOPY DIAGNOSTIC COLONOSCOPY FLX DX W/COLLJ SPEC WHEN PFRMLisa Kirk MD [address] [place] [address] [facility] [place] [address] [place] [id number] Referral ID Status Reason Start Date Expiration Date Visits Requested Visits Authorized [id number] Authorized Auto-Generat ed Referral 01/07/2023 01/08/2024 1 1 [facility] for referral (narrative)* Diagnostic Procedure Only (Urgent) - Closed Specialty Diagnoses / Procedures Referred By Contac t Referred To Contact XR IMAGING Diagnoses Acute pain of both shoulders Procedures XR SHOULDER GENERAL 3V OR MORE AP/TRUE AP/OTHER LEFT RADEX SHOULDER COMPLETE MINIMUM 2 VIEWS Ayla Carrasquillo PA-C [address] [phone] [place] [address] Referral ID Status Reason Start Date Expiration Date V isits Requested Visits Authorized [id number] Closed Auto-Generate d Referral 02/09/2024 03/10/2025 1 1 * Diagnostic Procedure Only (Urgent) - Closed Specialty Diagnoses / Procedures Referred By Contac t Referred To Contact XR IMAGING Diagnoses Acute pain of both shoulders Procedures XR SHOULDER GENERAL 3V OR MORE AP/TRUE AP/OTHER RIGHT RADEX SHOULDER COMPLETE MINIMUM 2 VIEWS Ayla Carrasquillo PA-C [address] [place] [address] [place] [address] Referral ID Status Reason Start Date Expiration Date V isits Requested Visits Authorized [id number] Closed Auto-Generate d Referral 02/09/2024 03/10/2025 1 1 [facility] for referral (narrative)* Outpatient Procedure (Routine) - Closed Specialty Diagnoses / Procedures Referred By Contac t Referred To Contact [facility] Diagnoses Diarrhea, unspecified type Procedures COLONOSCOPY DIAGNOSTIC COLONOSCOPY FLX DX W/COLLJ SPEC WHEN Lisa Pryor MD [address] [place] [address] [address] Referral ID Status Reason Start Date Expiration Date V isits Requested Visits Authorized [id number] Closed Auto-Generate d Referral 01/07/2023 01/08/2024 1 1 [facility] for referral (narrative)No reason for referral information availableWGuern[facility] Work Phone: [facility] [place] for visit Narrative* Diagnostic Procedure Only (Urgent) - Closed Specialty Diagnoses / Procedures Referred By Contac t Referred To Contact XR IMAGING Diagnoses Acute pain of both shoulders Procedures XR SHOULDER GENERAL 3V OR MORE AP/TRUE AP/OTHER LEFT RADEX SHOULDER COMPLETE MINIMUM 2 VIEWS Ayla Carrasquillo PA-C [address] [place] [address] [place] [address] Referral ID Status Reason Start Date Expiration Date V isits Requested Visits Authorized [id number] Closed Auto-Generate d Referral 02/09/2024 03/10/2025 1 1 [facility] for visit Narrative* Outpatient Procedure (Routine) - Closed Specialty Diagnoses / Procedures Referred By Contac t Referred To Contact [facility] Diagnoses Diarrhea, unspecified type Procedures COLONOSCOPY DIAGNOSTIC COLONOSCOPY FLX DX W/COLLJ SPEC WHEN Lisa Pryor MD [address] [place] [address] [address] Referral ID Status Reason Start Date Expiration Date V isits Requested Visits Authorized [id number] Closed Auto-Generate d Referral 01/07/2023 01/08/2024 1 1 [facility] for visit Narrative* MRI/CT (Routine) - Closed Specialty Diagnoses / Procedures Referred By Contac t Referred To Contact CT IMAGING Diagnoses LLQ abdominal pain Left lower quadrant abdominal pain Procedures CT ABD/PEL W IVCON CT ABD & PELVIS W/CONTRAST Darya Borden, 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 [address] [place] [address] Phone: tel: fax: [place] [address] Referral ID Status Reason Start Date Expiration Date V isits Requested Visits Authorized [id number] Closed Auto-Generate d Referral 11/27/2024 12/27/2025 1 1 [facility] for visit Narrative* MRI/CT (Routine) - Closed Specialty Diagnoses / Procedures Referred By Contac t Referred To Contact CT IMAGING Diagnoses LLQ abdominal pain Left lower quadrant abdominal pain Procedures CT ABD/PEL W IVCON CT ABD & PELVIS W/CONTRAST Darya Borden, 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 [address] [place] [address] Phone: tel: fax: [place] [address] Referral ID Status Reason Start Date Expiration Date V isits Requested Visits Authorized [id number] Closed Auto-Generate d Referral 11/27/2024 12/27/2025 1 1 [facility] for visit Narrative* Imaging (Routine) - Closed Specialty Diagnoses / Procedures Referred By Contac t Referred To Contact Radiology Diagnoses Type II endoleak of aortic graft Procedures IR Embolization Ana Bobo MD [address] [place] [id number] Phone: tel: fax: Referral ID Status Reason Start Date Expiration Date Visits Re quested Visits Authorized [id number] Closed 03/01/2025 03/01/2026 1 1 [facility] Health Summary Purpose Family History Relationship Condition Age at Onset Recorded Date/T katlyn father Malignant neoplasm of lung Unknown Malignant neoplasm of liver Unknown mother Malignant neoplasm of oral cavity Unknown Advance Directives Date Activated Date Inactivated Comments 11/28/2024 9:51 PM 12/01/2024 8:49 PM Question Answer Comments Full Code Order Discussed With: Patient Documents on File Type Date Recorded 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 Advance Directives and Living Will Power of Slurry Tank Operator Documents on File Type Date Recorded 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 Advance Directive(s) Advance Directive(s) 05/21/2020 7:47 AM Advance Directive(s) 05/09/2020 2:53 PM Advance Directive Response Recorded Date/ Time Advance Directives Yes October 11, 2016 3:05pm Living Will Yes January 20, 2021 8: 52pm Power of Slurry Tank Operator Yes January 20, 2021 8:52pm Advance Directive Response Recorded Date/ Time Name of Medical Power of Slurry Tank Operator Libra April 07, 2023 10:14am Advance Directives Yes October 11, 2016 3:05pm Living Will Yes April 07, 2023 10:14am Power of Slurry Tank Operator Yes April 07 10:14am Advance Directive Response Recorded Date/ Time Advance Directives Yes October 11, 2016 2:05pm Living Will Yes April 07, 2023 9:14am Power of Slurry Tank Operator Yes April 07 9:14am Advance Directive Response Recorded Date/ Time Advance Directives Yes October 11, 2016 3:05pm Living Will Yes April 07, 2023 10:14am Power of Slurry Tank Operator Yes April 07 10:14am Date Activated Date Inactivated Comments 11/28/2024 9:51 PM Date Activated Date Inactivated Comments 11/28/2024 9:51 PM Question Answer Comments Full Code Order Discussed With: Patient Advance Directive Response Recorded Date/ Time Living Will Yes August 11, 024 1:26pm Power of Slurry Tank Operator Yes August 11, 2024 1:26pm Name of Medical Power of Slurry Tank Operator August 11, 2024 1:26pm Living Will Yes November 28, 2024 5:58pm Power of Slurry Tank Operator Yes November 28 5:58pm Name of Medical Power of Slurry Tank Operator Libra Camejo November 28, 2024 5:58pm Advance Directives Yes October 11, 2016 3:05pm Advance Directive Response Recorded Date/ Time Do you have a Healthcare Power of Slurry Tank Operator? No January 12, 2025 10:29am Living Will Yes March 11th, 2025 5:58pm Do you have a Healthcare Power of Slurry Tank Operator? Yes November 28, 2024 5:58pm Name of Medical Power of Slurry Tank Operator Libra Camejo November 28, 2024 5:58pm Advance Directives Yes October 11, 2016 3:05pm Advance Directive Response Recorded Date/ Time Do you have a Healthcare Power of Slurry Tank Operator? No January 12, 2025 10:29am Advance Directives on File Yes January 192024 9:53am Living Will Yes February 14, 2025 9 :53am Do you have a Healthcare Power of Slurry Tank Operator? Yes February 14, 2025 9:53am Name of Medical Power of Slurry Tank Operator Libra (Spouse) February 14, 2025 9:53am Advance Directives Yes February 14 9:53am Living Will Yes November 28, 2024 5:58pm Do you have a Healthcare Power of Slurry Tank Operator? Yes November 28, 2024 5:58pm Name of Medical Power of Slurry Tank Operator Libra Camejo November 28, 2024 5:58pm Advance Directive Response Recorded Date/ Time Do you have a Healthcare Power of Slurry Tank Operator? No January 12, 2025 10:29am Advance Directives on File Yes January 192024 9:53am Living Will Yes February 14, 2025 9 :53am Do you have a Healthcare Power of Slurry Tank Operator? Yes February 14, 2025 9:53am Name of Medical Power of Slurry Tank Operator Libra (Spouse) February 14, 2025 9:53am Advance Directives Yes February 14 9:53am Advance Directive Response Recorded Date/ Time Advance Directives on File Yes January 192024 9:53am Living Will Yes February 14, 2025 9 :53am Do you have a Healthcare Power of Slurry Tank Operator? 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 If you think your pain medicine [...] as of: July 26, 2018 Content Version: [id number] [employer]. Care instructions adapted under license by [employer]. If youhave questions about a medical condition or this instruction, always ask your healthcare professional. [employer] disclaims any warranty or liability for your use of this information. If you have any questions or problems following your test, please call: [phone] (7AM - 4PM) or after 4PM call [phone] and ask for the angiography radiologist chemical instrumentation officer documented in this encounter History of Present [...] EDT Patient arrived to CT department from [facility] for a Rt. Hip/ psoas aspiration. Dr. Quevedo in to discuss procedure with patient and informed consent obtained. Patient assisted to CT table . 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 10 ccs red fluid removed from rt. Hip/ psoas sent to lab Bandaid applied to site. Patient tolerated procedure well. Report called to Lolly Menjivar and patient transferred to bed 40 SDS. documented in this encounter Assessments Diagnosis Pain [...] rupture Chief Complaint AAA 7-20 AAA Yearly Elijah F/U Discuss Imaging SEE ORDER Reason for [...] 1pm Discuss aneurysm, [facility] sent him here Apri 2024 3:30pm abd pain January 12, 2025 10: 29am Reason for Visit Admit Date S/P spigelian hernia repair, follow-up e xam September 15, 2024 1:12pm Type II endoleak of aortic graft December 252024 3:30pm Chief Complaint Admit Date abd pain, AAA November 28, 2024 5:5 1pm Discuss aneurysm, [facility] sent him here 2024 3:30pm abd pain January 12, 2025 [...] 1pm Discuss aneurysm, [facility] sent him here Apri [...] FU February 27, 2025 2:40pm FU from [facility] April 18, 2025 4:16 pm Reason for [...] FU February 27, 2025 2:40pm FU from [facility] April 18, 2025 4:16 pm AAA, [...] FU February 27, 2025 2:40pm FU from [facility] April 18, 2025 4:16 pm AAA, [...] FU February 27, 2025 2:40pm FU from [facility] April 18, 2025 4:16 pm AAA, S/P EVAR, COIL OF ENDOLEAK April 202024 1:59pm FU VISIT May 10, 2025 8: 04am E ORDERS May 10, 2025 8: 49am Chief Complaint Admit Date Other postprocedural complications and d isorders o February 14, 2025 9:24am Other postprocedural complications and d isorders o February 14, 2025 11:33am Post Aortogram 2-4 WK FU February 27, 2025 2:40pm FU from [facility] April 18, 2025 4:16 pm AAA, S/P EVAR, COIL OF ENDOLEAK April 202024 1:59pm FU VISIT May 10, 2025 8: 04am E ORDERS May 10, 2025 8: 49am ARRHYTHMIA NSTEMI May 21, 2025 3:46am Reason for Visit Admit Date Type II [...] of breath May 10, 2025 8: 04am Acute exacerbation of chronic heart fail ure May 21, 2025 3:46am DALTON (acute kidney injury) May 21, 2025 3:46am Elevated TSH May 21, 2025 3:46am New onset atrial flutter May 21, 2025 3:46am Non-ST elevation [place] (NSTEMI) May 212024 3:46am Abdominal aortic aneurysm without ruptur e May 21, 2025 3:46am Chronic renal failure, stage 3 (moderate ) May 21, 2025 3:46am Type II endoleak of aortic graft Septemb 2024 3:46am Health Concerns Infection Onset Date Last Indicated Resolved Time COVID-19 Rule-Out 02/17/2022 02/17/2022 Infection Onset Date Last Indicated Resolved Time COVID-19 Confirmed 02/17/2022 02/17/2022 Problem Noted Date High Risk Chronic Disease Home Monitorin g Problem 02/03/2023 Problem Noted Date Diagnosed Date High Risk Chronic Disease Home Monitoring Proble 02/03/2023 Problem Noted Date Diagnosed Date High Risk Chronic Disease Home Monitoring Proble 02/03/2023 Problem Noted Date Diagnosed Date High Risk Chronic Disease Home Monitoring Proble 02/03/2023 Active Problems Noted Date Diagnosed Date High Risk Chronic Disease Home Monitoring Proble 02/03/2023 Active Problems Noted Date Diagnosed Date High Risk Chronic Disease Home Monitoring Proble 02/03/2023 Active Problems Noted Date Diagnosed Date High Risk Chronic Disease Home Monitoring Proble 02/03/2023 Reason for Referral Specialty Diagnoses / Procedures Referred By Trace t Referred To Contact CT IMAGING Diagnoses Encounter for other preprocedural examination Procedures CTA ABD/PEL WO/W IVCON CT ANGIO ABD&PLVIS CNTRST MTRL W/WO CNTRST IMGES Shaun Kowalski MD [address] [facility] [place] [address] Ct Imaging [id number] Referral ID Status Reason Start Date Expiration Date Visits Requested Visits Authorized [id number] Authorized Auto-Generat ed Referral 01/05/2024 02/03/2025 1 1 Specialty Diagnoses / Procedures Referred By Contac t Referred To Contact CT IMAGING Diagnoses Encounter for other preprocedural examination Procedures CTA CHEST (NONGATED) WO/W IVCON CT ANGIOGRAPHY CHEST W/CONTRAST/NONCONTRAST Shaun Kowalski MD [address] [place] [address] Ct Imaging [place] [address] Referral ID Status Reason Start Date Expiration Date Visits Requested Visits Authorized [id number] Authorized Auto-Generat ed Referral 01/05/2024 02/03/2025 1 1 Specialty Diagnoses / Procedures Referred By Contac t Referred To Contact Orthopedics Diagnoses Acute pain of both shoulders Procedures CONSULT TO ORTHOPAEDICS OFFICE/OUTPATIENT [facility] 60 MINUTES Ayla Carrasquillo PA-C [address] [place] [address] Referral ID Status Reason Start Date Expiration Date Visits Requested Visits Authorized [id number] Authorized PCP Requested Referral 02/09/2024 02/08/2025 1 1 Specialty Diagnoses / Procedures Referred By Contac t Referred To Contact XR IMAGING Diagnoses Acute pain of both shoulders Procedures XR SHOULDER GENERAL 3V OR MORE AP/TRUE AP/OTHER LEFT RADEX SHOULDER COMPLETE MINIMUM 2 VIEWS Ayla Carrasquillo PA-C [address] [place] [address] Xr Imaging [facility] Referral ID Status Reason Start Date Expiration Date V isits Requested Visits Authorized [id number] Closed Auto-Generate d Referral 02/09/2024 03/10/2025 1 1 Specialty Diagnoses / Procedures Referred By Contac t Referred To Contact XR IMAGING Diagnoses Acute pain of both shoulders Procedures XR SHOULDER GENERAL 3V OR MORE AP/TRUE AP/OTHER RIGHT RADEX SHOULDER COMPLETE MINIMUM 2 VIEWS Ayla Carrasquillo PA-C [address] [place] [address] [place] [address] Referral ID Status Reason Start Date Expiration Date V isits Requested Visits Authorized [id number] Closed Auto-Generate d Referral 02/09/2024 03/10/2025 1 1 Specialty Diagnoses / Procedures Referred By Contac t Referred To Contact Vascular Surgery Diagnoses 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 Procedures CONSULT TO VASCULAR SURGERY Dallas Reed MD [address] [place] [address] Referral ID Status Reason Start Date Expiration Date Visits Requested Visits Authorized [id number] Ref Not Required PCP Requested Referral 4 07/17/2025 1 1 Specialty Diagnoses / Procedures Referred By Contac t Referred To Contact General Surgery Diagnoses Spigelian hernia Pancreatic cyst Procedures CONSULT TO GENERAL SURGERY Dallas Reed MD [address] [place] [address] Referral ID Status Reason Start Date Expiration Date Visits Requested Visits Authorized [id number] Ref Not Required PCP Requested Referral 4 07/17/2025 1 1 Additional Source Comments (unrecognized sect ion and content) No Status Records FoundNo Status Records FoundNo Status Records FoundNo Status Records FoundNo Status Records FoundNo Status Records FoundNo Status Records Found INFORMATION SOURCE (unrecogn ized section and content) DATE CREATED AUTHOR 03/10/2018 [facility] DATE CREATED AUTHOR AUTHOR'S ORGANIZ ATION 03/10/2018 [facility] DATE CREATED AUTHOR AUTHOR'S ORGANIZ ATION 06/20/2019 [facility] ([place]) DATE CREATED AUTHOR AUTHOR'S ORGANIZ ATION 07/24/2019 [facility] DATE CREATED AUTHOR AUTHOR'S ORGANIZ ATION 03/22/2025 [facility] DATE CREATED AUTHOR AUTHOR'S ORGANIZ ATION 05/19/2025 [facility] DATE CREATED AUTHOR AUTHOR'S ORGANIZ ATION 05/20/2025 [facility] Source Comments (unrecognize d section and content) In the event this informatio n is protected by the Federal Confidentiality of Alcohol and Drug Abuse Patient Records regulations: The Federal rules restrict any use of the information to criminally investigate or prosecute any alcohol or drug abuse patient.[facility] the event this information is protected by the Federal Confidentiality of Alcohol and Drug Abuse Patient Records regulations: The Federal rules restrict any use of the information to criminally investigate or prosecute any alcohol or drug abuse patient.[facility] the event this information is protected by the Federal Confidentiality of Alcohol and Drug Abuse Patient Records regulations: The Federal rules restrict any use of the information to criminally investigate or prosecute any alcohol or drug abuse patient.[facility] the event this information is protected by the Federal Confidentiality of Alcohol and Drug Abuse Patient Records regulations: The Federal rules restrict any use of the information to criminally investigate or prosecute any alcohol or drug abuse patient.[facility] the event this information is protected by the Federal Confidentiality of Alcohol and Drug Abuse Patient Records regulations: The Federal rules restrict any use of the information to criminally investigate or prosecute any alcohol or drug abuse patient.[facility] the event this information is protected by the Federal Confidentiality of Alcohol and Drug Abuse Patient Records regulations: The Federal rules restrict any use of the information to criminally investigate or prosecute any alcohol or drug abuse patient.[facility] the event this information is protected by the Federal Confidentiality of Alcohol and Drug Abuse Patient Records regulations: The Federal rules restrict any use of the information to criminally investigate or prosecute any alcohol or drug abuse patient.[facility] the event this information is protected by the Federal Confidentiality of Alcohol and Drug Abuse Patient Records regulations: The Federal rules restrict any use of the information to criminally investigate or prosecute any alcohol or drug abuse patient.[facility] the event this information is protected by the Federal Confidentiality of Alcohol and Drug Abuse Patient Records regulations: The Federal rules restrict any use of the information to criminally investigate or prosecute any alcohol or drug abuse patient.[facility] the event this information is protected by the Federal Confidentiality of Alcohol and Drug Abuse Patient Records regulations: The Federal rules restrict any use of the information to criminally investigate or prosecute any alcohol or drug abuse patient.[facility] the event this information is protected by the Federal Confidentiality of Alcohol and Drug Abuse Patient Records regulations: The Federal rules restrict any use of the information to criminally investigate or prosecute any alcohol or drug abuse patient.[facility] the event this information is protected by the Federal Confidentiality of Alcohol and Drug Abuse Patient Records regulations: The Federal rules restrict any use of the information to criminally investigate or prosecute any alcohol or drug abuse patient.[facility] the event this information is protected by the Federal Confidentiality of Alcohol and Drug Abuse Patient Records regulations: The Federal rules restrict any use of the information to criminally investigate or prosecute any alcohol or drug abuse patient.[facility] the event this information is protected by the Federal Confidentiality of Alcohol and Drug Abuse Patient Records regulations: The Federal rules restrict any use of the information to criminally investigate or prosecute any alcohol or drug abuse patient.[facility] the event this information is protected by the Federal Confidentiality of Alcohol and Drug Abuse Patient Records regulations: The Federal rules restrict any use of the information to criminally investigate or prosecute any alcohol or drug abuse patient.[facility] the event this information is protected by the Federal Confidentiality of Alcohol and Drug Abuse Patient Records regulations: The Federal rules restrict any use of the information to criminally investigate or prosecute any alcohol or drug abuse patient.[facility] the event this information is protected by the Federal Confidentiality of Alcohol and Drug Abuse Patient Records regulations: The Federal rules restrict any use of the information to criminally investigate or prosecute any alcohol or drug abuse patient.[facility]edoIn the event this information is protected by the Federal Confidentiality of Alcohol and Drug Abuse Patient Records regulations: The Federal rules restrict any use of the information to criminally investigate or prosecute any alcohol or drug abuse patient.[facility]In the event this information is protected by the Federal Confidentiality of Alcohol and Drug Abuse Patient Records regulations: The Federal rules restrict any use of the information to criminally investigate or prosecute any alcohol or drug abuse patient.[facility]edoIn the event this information is protected by the Federal Confidentiality of Alcohol and Drug Abuse Patient Records regulations: The Federal rules restrict any use of the information to criminally investigate or prosecute any alcohol or drug abuse patient.[facility]edoIn the event this information is protected by the Federal Confidentiality of Alcohol and Drug Abuse Patient Records regulations: The Federal rules restrict any use of the information to criminally investigate or prosecute any alcohol or drug abuse patient.[facility]edoIn the event this information is protected by the Federal Confidentiality of Alcohol and Drug Abuse Patient Records regulations: The Federal rules restrict any use of the information to criminally investigate or prosecute any alcohol or drug abuse patient.[facility]In the event this information is protected by the Federal Confidentiality of Alcohol and Drug Abuse Patient Records regulations: The Federal rules restrict any use of the information to criminally investigate or prosecute any alcohol or drug abuse patient.[facility] the event this information is protected by the Federal Confidentiality of Alcohol and Drug Abuse Patient Records regulations: The Federal rules restrict any use of the information to criminally investigate or prosecute any alcohol or drug abuse patient.[facility] the event this information is protected by the Federal Confidentiality of Alcohol and Drug Abuse Patient Records regulations: The Federal rules restrict any use of the information to criminally investigate or prosecute any alcohol or drug abuse patient.[facility]edoIn the event this information is protected by the Federal Confidentiality of Alcohol and Drug Abuse Patient Records regulations: The Federal rules restrict any use of the information to criminally investigate or prosecute any alcohol or drug abuse patient.[facility]In the event this information is protected by the Federal Confidentiality of Alcohol and Drug Abuse Patient Records regulations: The Federal rules restrict any use of the information to criminally investigate or prosecute any alcohol or drug abuse patient.[facility]In the event this information is protected by the Federal Confidentiality of Alcohol and Drug Abuse Patient Records regulations: The Federal rules restrict any use of the information to criminally investigate or prosecute any alcohol or drug abuse patient.[facility]In the event this information is protected by the Federal Confidentiality of Alcohol and Drug Abuse Patient Records regulations: The Federal rules restrict any use of the information to criminally investigate or prosecute any alcohol or drug abuse patient.[facility]In the event this information is protected by the Federal Confidentiality of Alcohol and Drug Abuse Patient Records regulations: The Federal rules restrict any use of the information to criminally investigate or prosecute any alcohol or drug abuse patient.[facility]In the event this information is protected by the Federal Confidentiality of Alcohol and Drug Abuse Patient Records regulations: The Federal rules restrict any use of the information to criminally investigate or prosecute any alcohol or drug abuse patient.[facility] the event this information is protected by the Federal Confidentiality of Alcohol and Drug Abuse Patient Records regulations: The Federal rules restrict any use of the information to criminally investigate or prosecute any alcohol or drug abuse patient.[facility] the event this information is protected by the Federal Confidentiality of Alcohol and Drug Abuse Patient Records regulations: The Federal rules restrict any use of the information to criminally investigate or prosecute any alcohol or drug abuse patient.[facility] the event this information is protected by the Federal Confidentiality of Alcohol and Drug Abuse Patient Records regulations: The Federal rules restrict any use of the information to criminally investigate or prosecute any alcohol or drug abuse patient.[facility] the event this information is protected by the Federal Confidentiality of Alcohol and Drug Abuse Patient Records regulations: The Federal rules restrict any use of the information to criminally investigate or prosecute any alcohol or drug abuse patient.[facility]In the event this information is protected by the Federal Confidentiality of Alcohol and Drug Abuse Patient Records regulations: The Federal rules restrict any use of the information to criminally investigate or prosecute any alcohol or drug abuse patient.[facility]In the event this information is protected by the Federal Confidentiality of Alcohol and Drug Abuse Patient Records regulations: The Federal rules restrict any use of the information to criminally investigate or prosecute any alcohol or drug abuse patient.[facility]edoIn the event this information is protected by the Federal Confidentiality of Alcohol and Drug Abuse Patient Records regulations: The Federal rules restrict any use of the information to criminally investigate or prosecute any alcohol or drug abuse patient.[facility] the event this information is protected by the Federal Confidentiality of Alcohol and Drug Abuse Patient Records regulations: The Federal rules restrict any use of the information to criminally investigate or prosecute any alcohol or drug abuse patient.[facility]edoIn the event this information is protected by the Federal Confidentiality of Alcohol and Drug Abuse Patient Records regulations: The Federal rules restrict any use of the information to criminally investigate or prosecute any alcohol or drug abuse patient.[facility]edoIn the event this information is protected by the Federal Confidentiality of Alcohol and Drug Abuse Patient Records regulations: The Federal rules restrict any use of the information to criminally investigate or prosecute any alcohol or drug abuse patient.[facility]edoIn the event this information is protected by the Federal Confidentiality of Alcohol and Drug Abuse Patient Records regulations: The Federal rules restrict any use of the information to criminally investigate or prosecute any alcohol or drug abuse patient.[facility]edoIn the event this information is protected by the Federal Confidentiality of Alcohol and Drug Abuse Patient Records regulations: The Federal rules restrict any use of the information to criminally investigate or prosecute any alcohol or drug abuse patient.[facility]edoIn the event this information is protected by the Federal Confidentiality of Alcohol and Drug Abuse Patient Records regulations: The Federal rules restrict any use of the information to criminally investigate or prosecute any alcohol or drug abuse patient.[facility]edoIn the event this information is protected by the Federal Confidentiality of Alcohol and Drug Abuse Patient Records regulations: The Federal rules restrict any use of the information to criminally investigate or prosecute any alcohol or drug abuse patient.[facility]edoIn the event this information is protected by the Federal Confidentiality of Alcohol and Drug Abuse Patient Records regulations: The Federal rules restrict any use of the information to criminally investigate or prosecute any alcohol or drug abuse patient.[facility]edoIn the event this information is protected by the Federal Confidentiality of Alcohol and Drug Abuse Patient Records regulations: The Federal rules restrict any use of the information to criminally investigate or prosecute any alcohol or drug abuse patient.[facility]edoIn the event this information is protected by the Federal Confidentiality of Alcohol and Drug Abuse Patient Records regulations: The Federal rules restrict any use of the information to criminally investigate or prosecute any alcohol or drug abuse patient.[facility]edoIn the event this information is protected by the Federal Confidentiality of Alcohol and Drug Abuse Patient Records regulations: The Federal rules restrict any use of the information to criminally investigate or prosecute any alcohol or drug abuse patient.[facility]edoIn the event this information is protected by the Federal Confidentiality of Alcohol and Drug Abuse Patient Records regulations: The Federal rules restrict any use of the information to criminally investigate or prosecute any alcohol or drug abuse patient.[facility]edoIn the event this information is protected by the Federal Confidentiality of Alcohol and Drug Abuse Patient Records regulations: The Federal rules restrict any use of the information to criminally investigate or prosecute any alcohol or drug abuse patient.[facility]edoIn the event this information is protected by the Federal Confidentiality of Alcohol and Drug Abuse Patient Records regulations: The Federal rules restrict any use of the information to criminally investigate or prosecute any alcohol or drug abuse patient.[facility]edoIn the event this information is protected by the Federal Confidentiality of Alcohol and Drug Abuse Patient Records regulations: The Federal rules restrict any use of the information to criminally investigate or prosecute any alcohol or drug abuse patient.[facility]edoIn the event this information is protected by the Federal Confidentiality of Alcohol and Drug Abuse Patient Records regulations: The Federal rules restrict any use of the information to criminally investigate or prosecute any alcohol or drug abuse patient.[facility]edoIn the event this information is protected by the Federal Confidentiality of Alcohol and Drug Abuse Patient Records regulations: The Federal rules restrict any use of the information to criminally investigate or prosecute any alcohol or drug abuse patient.[facility]edoIn the event this information is protected by the Federal Confidentiality of Alcohol and Drug Abuse Patient Records regulations: The Federal rules restrict any use of the information to criminally investigate or prosecute any alcohol or drug abuse patient.[facility]edoIn the event this information is protected by the Federal Confidentiality of Alcohol and Drug Abuse Patient Records regulations: The Federal rules restrict any use of the information to criminally investigate or prosecute any alcohol or drug abuse patient.[facility]edoIn the event this information is protected by the Federal Confidentiality of Alcohol and Drug Abuse Patient Records regulations: The Federal rules restrict any use of the information to criminally investigate or prosecute any alcohol or drug abuse patient.[facility]edoIn the event this information is protected by the Federal Confidentiality of Alcohol and Drug Abuse Patient Records regulations: The Federal rules restrict any use of the information to criminally investigate or prosecute any alcohol or drug abuse patient.[facility]edoIn the event this information is protected by the Federal Confidentiality of Alcohol and Drug Abuse Patient Records regulations: The Federal rules restrict any use of the information to criminally investigate or prosecute any alcohol or drug abuse patient.[facility]edoIn the event this information is protected by the Federal Confidentiality of Alcohol and Drug Abuse Patient Records regulations: The Federal rules restrict any use of the information to criminally investigate or prosecute any alcohol or drug abuse patient.[facility]edoIn the event this information is protected by the Federal Confidentiality of Alcohol and Drug Abuse Patient Records regulations: The Federal rules restrict any use of the information to criminally investigate or prosecute any alcohol or drug abuse patient.[facility]edoIn the event this information is protected by the Federal Confidentiality of Alcohol and Drug Abuse Patient Records regulations: The Federal rules restrict any use of the information to criminally investigate or prosecute any alcohol or drug abuse patient.[facility]edoIn the event this information is protected by the Federal Confidentiality of Alcohol and Drug Abuse Patient Records regulations: The Federal rules restrict any use of the information to criminally investigate or prosecute any alcohol or drug abuse patient.[facility]edoIn the event this information is protected by the Federal Confidentiality of Alcohol and Drug Abuse Patient Records regulations: The Federal rules restrict any use of the information to criminally investigate or prosecute any alcohol or drug abuse patient.[facility]edoIn the event this information is protected by the Federal Confidentiality of Alcohol and Drug Abuse Patient Records regulations: The Federal rules restrict any use of the information to criminally investigate or prosecute any alcohol or drug abuse patient.[facility] the event this information is protected by the Federal Confidentiality of Alcohol and Drug Abuse Patient Records regulations: The Federal rules restrict any use of the information to criminally investigate or prosecute any alcohol or drug abuse patient.[facility]edoIn the event this information is protected by the Federal Confidentiality of Alcohol and Drug Abuse Patient Records regulations: The Federal rules restrict any use of the information to criminally investigate or prosecute any alcohol or drug abuse patient.[facility]edoIn the event this information is protected by the Federal Confidentiality of Alcohol and Drug Abuse Patient Records regulations: The Federal rules restrict any use of the information to criminally investigate or prosecute any alcohol or drug abuse patient.[facility]edoIn the event this information is protected by the Federal Confidentiality of Alcohol and Drug Abuse Patient Records regulations: The Federal rules restrict any use of the information to criminally investigate or prosecute any alcohol or drug abuse patient.[facility]edoIn the event this information is protected by the Federal Confidentiality of Alcohol and Drug Abuse Patient Records regulations: The Federal rules restrict any use of the information to criminally investigate or prosecute any alcohol or drug abuse patient.[facility]edoIn the event this information is protected by the Federal Confidentiality of Alcohol and Drug Abuse Patient Records regulations: The Federal rules restrict any use of the information to criminally investigate or prosecute any alcohol or drug abuse patient.[facility]edoIn the event this information is protected by the Federal Confidentiality of Alcohol and Drug Abuse Patient Records regulations: The Federal rules restrict any use of the information to criminally investigate or prosecute any alcohol or drug abuse patient.[facility]edoIn the event this information is protected by the Federal Confidentiality of Alcohol and Drug Abuse Patient Records regulations: The Federal rules restrict any use of the information to criminally investigate or prosecute any alcohol or drug abuse patient.[facility]edoIn the event this information is protected by the Federal Confidentiality of Alcohol and Drug Abuse Patient Records regulations: The Federal rules restrict any use of the information to criminally investigate or prosecute any alcohol or drug abuse patient.[facility]edoIn the event this information is protected by the Federal Confidentiality of Alcohol and Drug Abuse Patient Records regulations: The Federal rules restrict any use of the information to criminally investigate or prosecute any alcohol or drug abuse patient.[facility]edoIn the event this information is protected by the Federal Confidentiality of Alcohol and Drug Abuse Patient Records regulations: The Federal rules restrict any use of the information to criminally investigate or prosecute any alcohol or drug abuse patient.[facility]edoIn the event this information is protected by the Federal Confidentiality of Alcohol and Drug Abuse Patient Records regulations: The Federal rules restrict any use of the information to criminally investigate or prosecute any alcohol or drug abuse patient.[facility]edoIn the event this information is protected by the Federal Confidentiality of Alcohol and Drug Abuse Patient Records regulations: The Federal rules restrict any use of the information to criminally investigate or prosecute any alcohol or drug abuse patient.[facility]edoIn the event this information is protected by the Federal Confidentiality of Alcohol and Drug Abuse Patient Records regulations: The Federal rules restrict any use of the information to criminally investigate or prosecute any alcohol or drug abuse patient.[facility]edoIn the event this information is protected by the Federal Confidentiality of Alcohol and Drug Abuse Patient Records regulations: The Federal rules restrict any use of the information to criminally investigate or prosecute any alcohol or drug abuse patient.[facility]edoIn the event this information is protected by the Federal Confidentiality of Alcohol and Drug Abuse Patient Records regulations: The Federal rules restrict any use of the information to criminally investigate or prosecute any alcohol or drug abuse patient.[facility]edoIn the event this information is protected by the Federal Confidentiality of Alcohol and Drug Abuse Patient Records regulations: The Federal rules restrict any use of the information to criminally investigate or prosecute any alcohol or drug abuse patient.[facility]edoIn the event this information is protected by the Federal Confidentiality of Alcohol and Drug Abuse Patient Records regulations: The Federal rules restrict any use of the information to criminally investigate or prosecute any alcohol or drug abuse patient.[facility]edoIn the event this information is protected by the Federal Confidentiality of Alcohol and Drug Abuse Patient Records regulations: The Federal rules restrict any use of the information to criminally investigate or prosecute any alcohol or drug abuse patient.[facility]edoIn the event this information is protected by the Federal Confidentiality of Alcohol and Drug Abuse Patient Records regulations: The Federal rules restrict any use of the information to criminally investigate or prosecute any alcohol or drug abuse patient.[facility]edoIn the event this information is protected by the Federal Confidentiality of Alcohol and Drug Abuse Patient Records regulations: The Federal rules restrict any use of the information to criminally investigate or prosecute any alcohol or drug abuse patient.[facility]edoIn the event this information is protected by the Federal Confidentiality of Alcohol and Drug Abuse Patient Records regulations: The Federal rules restrict any use of the information to criminally investigate or prosecute any alcohol or drug abuse patient.[facility]edoIn the event this information is protected by the Federal Confidentiality of Alcohol and Drug Abuse Patient Records regulations: The Federal rules restrict any use of the information to criminally investigate or prosecute any alcohol or drug abuse patient.[facility] Reason for Visit (unrecogniz ed section and content) Reason Comments PT Discharge Specialty Diagnoses / Procedures Referred By Contac t Referred To Contact [facility] Diagnoses Contusion of scalp, subsequent encounter Fall, subsequent encounter Proximal leg weakness Procedures CONSULT TO PHYSICAL THERAPY [facility] 45 MINS Dallas Reed MD [address] [place] [address] Phone: tel: fax: [facility] [address] [place] [address] Referral ID Status Reason Start Date Expiration Date Visits Requested Visits Authorized [id number] Authorized PCP Requested Referral Auto-Generate d Referral [...] unspecified type Procedures CONSULT TO GASTROENTEROLOGY OFFICE/OUTPATIENT [facility] MDM 60-74 MINUTES Dallas Reed MD [address] [place] [address] Referral ID Status Reason Start Date Expiration Date V isits Requested Visits Authorized [id number] Closed PCP Requested Referral 2023 2024 1 [...] Reason Comments Arthritis Shoulder Pain, R mary gabriela is worse, states he was up all night in pain. Since january Reason Onset Date Comments Refill Request 03/22/2024 Reason Comments Future Appointment Reason Comments Same Day Appointment low blood pressure per ENT, dizziness. Patient checked BP at home and it was elevated Reason Comments Hospital F/U Reason Onset Date Comments [facility] 06/22/2024 Engagement Call Reason Comments ER F/U Reason Onset Date Comments [facility] 07/22/2024 Chronic Disease Management Routine Call Reason Onset Date Comments [facility] 07/24/2024 Chronic Disease Management Routine Call Reason Comments Surgical Clearance Forms Reason Onset Date Comments [facility] 08/24/2024 Chronic Disease Management Routine Call Reason Onset Date Comments [facility] 08/28/2024 Chronic Disease Management Routine Call Reason [...] January 12, 2025 End: January 12, 2025 Student Services Counselor Relationship Specialty Start Date End Date Dallas Reed MD [address] [place] [address] PCP - General Internal Medicine 02/10/18 Denver Elizalde, pad machine feederScreen [employer]utter And Trimmer Internal Medicine 02/05/21 Student Services Counselor Relationship Specialty Start Date End Date Dallas Reed MD [address] [place] [address] PCP - General Internal Medicine 02/10/18 Denver Elizalde, pad machine feederScreen [employer] Internal Medicine 02/05/21 Student Services Counselor Relationship Specialty Start Date End Date Dallas Reed MD [address] [place] [address] PCP - General Internal Medicine 02/10/18 Denver Elizalde, pad machine feederScreen [employer] Internal Medicine 02/05/21 Student Services Counselor Relationship Specialty Start Date End Date Dallas Reed MD [address] [place] [address] PCP - General Internal Medicine 02/10/18 Denver Elizalde, pad machine feederScreen [employer] Internal Medicine 02/05/21 Student Services Counselor Relationship Specialty Start Date End Date Dallas Reed MD [address] [place] [address] PCP - General Internal Medicine 02/10/18 Denver Elizalde, pad machine feederScreen [employer] Internal Medicine 02/05/21 Student Services Counselor Relationship Specialty Start Date End Date Dallas Reed MD [address] [place] [address] PCP - General Internal Medicine 02/10/18 Denver Elizalde, pad machine feederScreen [employer] Internal Medicine 02/05/21 Student Services Counselor Relationship Specialty Start Date End Date Dallas Reed MD [address] [place] [address] PCP - General Internal Medicine 02/10/18 Denver Elizalde, pad machine feederScreen [employer] Internal Medicine 02/05/21 Student Services Counselor Relationship Specialty Start Date End Date Dallas Reed MD [address] [place] [address] PCP - General Internal Medicine 02/10/18 Fide Goff, pad machine feederScreen [employer] Internal Medicine 02/05/21 Student Services Counselor Relationship Specialty Start Date End Date Dallas Reed MD [address] [place] [address] PCP - General Internal Medicine 02/10/18 Fide Goff, pad machine feederScreen [employer] Internal Medicine 02/05/21 Student Services Counselor Relationship Specialty Start Date End Date Dallas Reed MD [address] [place] [address] PCP - General Internal Medicine 02/10/18 Fide Goff, pad machine feederScreen [employer] Internal Medicine 02/05/21 Student Services Counselor Relationship Specialty Start Date End Date Dallas Reed MD [address] [place] [address] PCP - General Internal Medicine 02/10/18 Fide Goff, pad machine feederScreen [employer] Internal Medicine 02/05/21 Team Status: Active Member [...] Perez MD Attending Provider, Referring Provider Active Student Services Counselor Relationship Specialty Start Date End Date Dallas Reed MD [address] [place] [address] PCP - General Internal Medicine 02/10/18 Fide Goff, pad machine feederScreen [employer] And [employer] Internal Medicine 02/05/21 Student Services Counselor Relationship Specialty Start Date End Date Dallas Reed MD [address] [place] [address] PCP - General Internal Medicine 02/10/18 Fide Goff, pad machine feederScreen [employer] And [employer] [facility] Medicine 02/05/21 Team Status: Inactive Member [...] Provider, Attending Provider, Referring Provider Active Dr. Deiter Christianson MD Other Provider Active Student Services Counselor Relationship Specialty Start Date End Date Dallas Reed MD [address] [place], [place] [address] PCP - General Internal Medicine 02/10/18 Fide Goff RN [employer] [facility] [facility] 02/05/21 Student Services Counselor Relationship Specialty Start Date End Date Dallas Reed MD [address] [place], [place] [address] PCP - General Internal Medicine 02/10/18 Fide Goff, pad machine feederScreen [employer] And Tr[employer] [facility] 02/05/21 Team Status: Active Member Role Status Dates Dr. Dallas Reed MD Primary Care Provider Active Dr. Donato Longoria MD Attending Provider Active Dr. Omid Perez MD Referring Provider Active Team Status: Inactive Member Role Status Dates Dr. Dallas Reed MD Primary Care Provider Active Benita PEREZ PA-C Attending Provider, Referring Provider Active Student Services Counselor Relationship Specialty Start Date End Date Dallas Reed MD [address] [place], [place] [address] PCP - General Internal Medicine 02/10/18 Fide Goff, pad machine feederScreen [employer] And [employer] [facility] 02/05/21 Team Status: Inactive Member Role Status Dates Dr. Dallas Reed MD Primary Care Provider Active Dr. Jovanny Rodriguez MD Attending Provider, Referring Provider Active Student Services Counselor Relationship Specialty Start Date End Date Dallas Reed MD [address] [place] [address] PCP - General Internal Medicine 02/10/18 Fide Goff, pad machine feederScreen [employer] And [employer] Internal Medicine 02/05/21 Student Services Counselor Relationship Specialty Start Date End Date Dallas Reed MD [address] [place] [address] PCP - General Internal Medicine 02/10/18 Fide Goff, pad machine feederScreen [employer] Internal Medicine 02/05/21 Student Services Counselor Relationship Specialty Start Date End Date Dallas Reed MD [address] [place] [address] PCP - General Internal Medicine 02/10/18 Fide Goff, pad machine feederScreen [employer] Internal Medicine 02/05/21 Student Services Counselor Relationship Specialty Start Date End Date Dallas Reed MD [address] [place] [address] PCP - General Internal Medicine 02/10/18 Fide Goff, pad machine feederScreen [employer] Internal Medicine 02/05/21 Student Services Counselor Relationship Specialty Start Date End Date Dallas Reed MD [address] [place] [address] PCP - General Internal Medicine 02/10/18 Fied Goff, pad machine feederScreen [employer] Internal Medicine 02/05/21 Student Services Counselor Relationship Specialty Start Date End Date Dallas Reed MD [address] [place] [address] PCP - General Internal Medicine 02/10/18 Fide Goff, pad machine feederScreen [employer] [facility] Medicine 02/05/21 Student Services Counselor Relationship Specialty Start Date End Date Dallas Reed MD [address] [place] [address] PCP - General Internal Medicine 02/10/18 Fide Goff, pad machine feederScreen [employer] [facility] 02/05/21 Student Services Counselor Relationship Specialty Start Date End Date Dallas Reed MD [address] [place] [address] PCP - General Internal Medicine 02/10/18 Fide Goff, pad machine feederScreen [employer] [facility] Medicine 02/05/21 Student Services Counselor Relationship Specialty Start Date End Date Dallas Reed MD [address] [place] [address] PCP - General Internal Medicine 02/10/18 Fide Goff, pad machine feederScreen [employer] Internal Medicine 02/05/21 Student Services Counselor Relationship Specialty Start Date End Date Dallas Reed MD [address] [place] [address] PCP - General Internal Medicine 02/10/18 Fide Goff, pad machine feederScreen [employer] Internal Medicine 02/05/21 Student Services Counselor Relationship Specialty Start Date End Date Dallas Reed MD [address] [place] [address] PCP - General Internal Medicine 02/10/18 Fide Goff, pad machine feederScreen [employer] And [employer] Internal Medicine 02/05/21 Student Services Counselor Relationship Specialty Start Date End Date Dallas Reed MD [address] [place] [address] PCP - General Internal Medicine 02/10/18 Fide Goff, pad machine feederScreen [employer]utter And [facility] 02/05/21 Student Services Counselor Relationship Specialty Start Date End Date Dallas Reed MD [address] [place] [address] PCP - General Internal Medicine 02/10/18 Fide Goff, pad machine feederScreen Cutter And [facility] 02/05/21 Student Services Counselor Relationship Specialty Start Date End Date Dallas Reed MD [address] [place] [address] PCP - General Internal Medicine 02/10/18 Fide Goff, pad machine feederScreen Cutter And Trimmer Internal Medicine 02/05/21 Darya Borden, 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 [address] [place] [address] Technology Manager Internal Medicine 08/28/24 Student Services Counselor Relationship Specialty Start Date End Date Dallas Reed MD [address] [place] [address] PCP - General Internal Medicine 02/10/18 Fide Goff, pad machine feederScreen Cutter And Trimmer Internal Medicine 02/05/21 Darya Borden, 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 [address] [place] [address] Technology Manager Internal Medicine 08/28/24 Student Services Counselor Relationship Specialty Start Date End Date Dallas Reed MD [address] [place] [address] PCP - General Internal Medicine 02/10/18 Fide Goff, pad machine feederScreen Cutter And Trimmer Internal Medicine 02/05/21 Darya Borden, 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 [address] [place] [address] Technology Manager Internal Medicine 08/28/24 Student Services Counselor Relationship Specialty Start Date End Date Dallas Reed MD [address] [place] [address] PCP - General Internal Medicine 02/10/18 Darya Borden, 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 [address] [place] [address] Technology Manager Internal Medicine 08/28/24 Student Services Counselor Relationship Specialty Start Date End Date Dallas Reed MD [address] [place] [address] PCP - General Internal Medicine 02/10/18 Darya Borden, 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 [address] [place] [address] Technology Manager Internal Medicine 08/28/24 Student Services Counselor Relationship Specialty Start Date End Date Dallas Reed MD [address] [place] [address] PCP - General Internal Medicine 02/10/18 Darya Borden, 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 [address] [place] [address] Technology Manager Internal Medicine 08/28/24 Student Services Counselor Relationship Specialty Start Date End Date Dallas Reed MD [address] [place] [address] PCP - General Internal Medicine 02/10/18 Darya Borden, 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 [address] [place] [address] Technology Manager Internal Medicine 08/28/24 Student Services Counselor Relationship Specialty Start Date End Date Dallas Reed MD [address] [place] [address] PCP - General Internal Medicine 02/10/18 Darya Borden, 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 [address] [place] [address] Technology Manager Internal Medicine 08/28/24 Student Services Counselor Relationship Specialty Start Date End Date Dallas Reed MD [address] [place] [address] PCP - General Internal Medicine 02/10/18 Darya Borden, 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 [address] [place] [address] Technology Manager Internal Medicine 08/28/24 Student Services Counselor Relationship Specialty Start Date End Date Dallas Reed MD [address] [place] [address] PCP - General Internal Medicine 02/10/18 Darya Borden, 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 [address] [place] [address] Technology Manager Internal Medicine 08/28/24 Student Services Counselor Relationship Specialty Start Date End Date Dallas Reed MD [address] [place] [address] PCP - General Internal Medicine 02/10/18 Darya Borden, 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 [address] [place] [address] Technology Manager Internal Medicine 08/28/24 Student Services Counselor Relationship Specialty Start Date End Date Dallas Reed MD [address] [place] [address] PCP - General Internal Medicine 02/10/18 Darya Borden, 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 [address] [place] [address] Technology Manager Internal Medicine 08/28/24 Student Services Counselor Relationship Specialty Start Date End Date Dallas Reed MD [address] [place] [address] PCP - General Internal Medicine 02/10/18 Darya Borden, 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 [address] [place] [address] Technology Manager Internal Medicine 08/28/24 Student Services Counselor Relationship Specialty Start Date End Date Dallas Reed MD [address] [place] [address] PCP - General Internal Medicine 02/10/18 Darya Borden, 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 [address] [place] [address] Technology Manager Internal Medicine 08/28/24 Yessenia Price [facility] [address] [place] [address] Transitional Care Pharmacist Pharmacy 12/04/24 01/04/25 Adriane White, CHRISTIANO [address] [place] [address] Primary Care Dedicated Intermodal Truck Driver 12/04/24 Student Services Counselor Relationship Specialty Start Date End Date Dallas Reed MD [address] [place] [address] PCP - General Internal Medicine 02/10/18 Darya Borden, 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 [address] [place] [address] Technology Manager Internal Medicine 08/28/24 Yessenia Price [facility] [address] [place] [address] Transitional Care Pharmacist Pharmacy 12/04/24 01/04/25 Adriane White, CHRISTIANO [facility] [address] [place] [phone] Primary Care Dedicated Intermodal Truck Driver 12/04/24 Student Services Counselor Relationship Specialty Start Date End Date Dallas Reed MD [address] [place] [address] PCP - General Internal Medicine 02/10/18 Darya Borden, 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 [address] [place] [address] Technology Manager Internal Medicine 08/28/24 Yessenia Price [facility] [place] [address] Transitional Care Pharmacist Pharmacy 12/04/24 01/04/25 Adriane White, CHRISTIANO [facility] [address] [place] [phone] Primary Care Dedicated Intermodal Truck Driver 12/04/24 Student Services Counselor Relationship Specialty Start Date End Date Dallas Reed MD [address] [place] [address] PCP - General Internal Medicine 02/10/18 Darya Borden, 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 [address] [place] [address] Technology Manager Internal Medicine 08/28/24 Yessenia Price [facility] [address] [place], [place] [id number] Transitional Care Pharmacist Pharmacy 12/04/24 01/04/25 Adriane White, CHRISTIANO [facility] [address] [place] [phone] Primary Care Dedicated Intermodal Truck Driver 12/04/24 Student Services Counselor Relationship Specialty Start Date End Date Dallas Reed MD [address] [place] [address] PCP - General Internal Medicine 02/10/18 Darya oBrden, 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 [address] [place] [address] Technology Manager Internal Medicine 08/28/24 Yessenia Price [facility] [address] [place], [place] [phone] Transitional Care Pharmacist Pharmacy 12/04/24 01/04/25 Adriane White, CHRISTIANO [facility] [address] [place] [address] Primary Care Dedicated Intermodal Truck Driver 12/04/24 Student Services Counselor Relationship Specialty Start Date End Date Dallas Reed MD [address] [place] [address] PCP - General Internal Medicine 02/10/18 Darya Borden, 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 [address] [place] [address] Technology Manager Internal Medicine 08/28/24 Yessenia Price [facility] [address] [place] [phone] Transitional Care Pharmacist Pharmacy 12/04/24 01/04/25 Adriane White, RN [facility] [address] [place] [phone] Primary Care Dedicated Intermodal Truck Driver 12/04/24 Student Services Counselor Relationship Specialty Start Date End Date Dallas Reed MD [address] [place] [address] PCP - General Internal Medicine 02/10/18 Darya Borden, 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 [address] [place] [id number] Technology Manager Internal Medicine 08/28/24 Yessenia Price [facility] [address] [place], [place] [phone] Transitional Care Pharmacist Pharmacy 12/04/24 01/04/25 Adriane White, CHRISTIANO [facility] [address] [place] [phone] Primary Care Dedicated Intermodal Truck Driver 12/04/24 Student Services Counselor Relationship Specialty Start Date End Date Dallas Reed MD [address] [place] [address] PCP - General Internal Medicine 02/10/18 Darya Borden, 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 [address] [place] [address] Technology Manager Internal Medicine 08/28/24 Yessenia Price [facility] [address] [place] [phone] Transitional Care Pharmacist Pharmacy 12/04/24 01/04/25 Adriane White, RN [facility] [address] [place] [phone] Primary Care Dedicated Intermodal Truck Driver 12/04/24 Student Services Counselor Relationship Specialty Start Date End Date Dallas Reed MD [address] [place] [address] PCP - General Internal Medicine 02/10/18 Darya Borden, 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 [address] [place], [place] [address]65[address] Technology Manager Internal Medicine 08/28/24 Yessenia Price [facility] [address] [place] [address] Transitional Care Pharmacist Pharmacy 12/04/24 01/04/25 Adriane White, RN [facility] [address] [place] [phone] Primary Care Dedicated Intermodal Truck Driver 12/04/24 Team Status: Active Member Role Status [...] November 28, 2024 End: November 28, 2024 Student Services Counselor Relationship Specialty Start Date End Date Dallas Reed MD [address] [place], [place] [address]365[address] PCP - General Internal Medicine 02/10/18 Darya Borden, 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 [address] [place], [place] [address] Technology Manager Internal Medicine 08/28/24 Yessenia Price [facility] [address] [place] [address] Transitional Care Pharmacist Pharmacy 12/04/24 01/04/25 Adriane White, CHRISTIANO [facility] [address] [facility] [place] [address] Primary Care Dedicated Intermodal Truck Driver 12/04/24 Student Services Counselor Relationship Specialty Start Date End Date Dallas Reed MD [address] [place] [address] PCP - General Internal Medicine 02/10/18 Darya Borden, 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 [address] [place], [place] [address] Technology Manager Internal Medicine 08/28/24 Yessenia Price [facility] [address] [place] [phone] Transitional Care Pharmacist Pharmacy 12/04/24 01/04/25 Adriane White, CHRISTIANO [facility] [address] [place] [phone] Primary Care Dedicated Intermodal Truck Driver 12/04/24 Student Services Counselor Relationship Specialty Start Date End Date Dallas Reed MD [address] [place], [place] [address]12[address] PCP - General Internal Medicine 02/10/18 Darya Borden, 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 [address] [place], [place] [address]47[address] Technology Manager Internal Medicine 08/28/24 Yessenia Price [facility] [address] [place] [address] Transitional Care Pharmacist Pharmacy 12/04/24 01/04/25 Adriane White, CHRISTIANO [facility] [address] [place] [address] Primary Care Dedicated Intermodal Truck Driver 12/04/24 Student Services Counselor Relationship Specialty Start Date End Date Dallas Reed MD [address] [place], [place] 349591 PCP - General Internal Medicine 02/10/18 Darya Borden, 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 [address] [place] [address] Technology Manager Internal Medicine 08/28/24 Adriane White, CHRISTIANO [facility] [address] [place] [address] Screen Cutter And Trimmer 01/02/25 Team Status: Inactive Member Role Status [...] Provider Active Start : February 14, 2025 Student Services Counselor Relationship Specialty Start Date End Date Dallas Reed MD [address] [place] [address] PCP - General Internal Medicine 02/10/18 Darya Borden, 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 [address] [place] [address] Technology Manager Internal Medicine 08/28/24 Adriane White, CHRISTIANO [facility] [address] [place] [address] Screen Cutter And Trimmer 01/02/25 Student Services Counselor Relationship Specialty Start Date End Date Dallas Reed MD [address] [place], [place] [address]37[address] PCP - General Internal Medicine 02/10/18 Darya Borden, 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 [address] [place], [place] [address] Technology Manager Internal Medicine 08/28/24 Adriane White, RN [facility] [address] [place] [address] Screen Cutter And Trimmer 01/02/25 Student Services Counselor Relationship Specialty Start Date End Date Dallas Reed MD [address] [place] [address] PCP - General Internal Medicine 02/10/18 Darya Borden, 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 [address] [place] [address] [facility] Internal Medicine 08/28/24 Adriane White, RN [facility] [address] [place] [phone] Screen C[employer] Trimmer 01/02/25 Team Status: Inactive Member Role Status Dates Dr. Dallas Reed MD Primary Care Provider Active Start: February 27, 2025 End: February 27, 2025 Dr. Dallas Reed MD Referring Provider Active Start: February 27, 2025 End: February 27, 2025 CHRIS Orellana Attending Provider Active Star t: February 27, 2025 End: February 27, 2025 Student Services Counselor Relationship Specialty Start Date End Date Dallas Reed [address] [place] [address] PCP - General 07/04/19 Student Services Counselor Relationship Specialty Start Date End Date Dallas Reed MD [address] [place] [address] PCP - General Internal Medicine 02/10/18 Darya Borden, 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 [address] [place] [address] Technology Manager Internal Medicine 08/28/24 Adriane White, CHRISTIANO [facility] [address] [place] [address] Screen Cutter And Trimmer 01/02/25 Student Services Counselor Relationship Specialty Start Date End Date Dallas Reed [address] [place] [address] PCP - General 07/04/19 Student Services Counselor Relationship Specialty Start Date End Date Dallas Reed [address] [place] [address] PCP - General 07/04/19 Student Services Counselor Relationship Specialty Start Date End Date Dallas Reed [address] [place] [address] PCP - General 07/04/19 Student Services Counselor Relationship Specialty Start Date End Date Dallas eRed [address] [place] [address] PCP - General 07/04/19 Student Services Counselor Relationship Specialty Start Date End Date Dallas Reed MD [address] [place] [address] PCP - General Internal Medicine 02/10/18 Darya Borden, 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 [address] [place] [address] Technology Manager Internal Medicine 08/28/24 Adriane White RN [facility] [address] [place] [address] Screen C[employer] Trimmer 01/02/25 Student Services Counselor Relationship Specialty Start Date End Date Dallas Reed MD [address] [place] [address] PCP - General Internal Medicine 02/10/18 Darya Borden APRN.SPA ATTENDANT [address] [place] [address] Technology Manager Internal Medicine 08/28/24 Adriane White, CHRISTIANO [facility] [address] [place] [address] Screen Cutter [employer] Trimmer 01/02/2503/20 Team Status: Active Member Role/Relationship Status [...] 2025 End: May 10, 2025 Mike Jay CHANGE CONSULTANT, CHANGE CONSULTANT-C Attending Provider Active S tart: May 10, [...] Status: Inactive Member Role/Relationship Status Dates Dr. Dalals Reed MD Primary Care Provider Active Start: May 10, 2025 End: May 10, 2025 Dr. Dallas Reed MD Referring Provider Active Start: May 10, 2025 End: May 10, 2025 Mike Jay CHANGE CONSULTANT, CHANGE CONSULTANT-C Attending Provider Active S tart: May 10, 2025 End: May 10, 2025 Team Status: Inactive Member Role/Relationship Status Dates Dr. Dallas Reed MD Primary Care Provider Active Start: May 10, 2025 End: May 10, 2025 Mike Jay CHANGE CONSULTANT, CHANGE CONSULTANT-C Attending Provider Active S tart: May 10, 2025 End: May 10, 2025 Mike Jay CHANGE CONSULTANT, CHANGE CONSULTANT-C Referring Provider Active S tart: May 10, 2025 End: May 10, 2025 Student Services Counselor Relationship Specialty Start Date End Date Dallas Reed MD [address] [place] [address] PCP - General Internal Medicine 02/10/18 Darya Borden, 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 [address] [place] [address] Technology Manager Internal Medicine 08/28/24 Team Status: Inactive Member Role/Relationship Status Dates [...] 2025 End: May 10, 2025 Mike Jay CHANGE CONSULTANT, CHANGE CONSULTANT-C Attending Provider Active S tart: May 10, 2025 End: May 10, 2025 Team Status: Inactive Member Role/Relationship Status Dates Dr. Dallas Reed MD Primary Care Provider Active Start: May 10, 2025 End: May 10, 2025 Mike Jay CHANGE CONSULTANT, CHANGE CONSULTANT-C Attending Provider Active S tart: May 10, 2025 End: May 10, 2025 Mike Jay CHANGE CONSULTANT, CHANGE CONSULTANT-C Referring Provider Active S tart: May 10, 2025 End: May 10, 2025 Team Status: Active Member Role/Relationship Status Dates Dr. Dallas Reed MD Primary Care Provider Active Start: May 21, 2025 Dr. Veena Nelson , Emergency Provider Active Start: May 21, 2025 Dr. Cameron Solares , Admit Provider Active Start: May 21, 2025 Dr. Cameron Solares , Attending Provider Active Start: May 21, 2025 Goals (unrecognized section and content) Goals may [...] BE BASED ON THE PRIMARY CLINICAL RECORDS. [employer] provides no warranty or guarantee of the accuracy or completeness of information in this document.
[2025-05-21] MEDS: Albumin Human 25% (50 mL) 12.5 GM/50 ML IV.SOLN IV (06:06)
[2025-05-21] MEDS: CLARIFY ORDER NOTE (06:43)
[2025-05-21 07:29] LABS: Troponin T High Sens 4 HR 671 ng/L (<=22)
[2025-05-21 08:03] LABS: Mucous, Urine 0 SEEN /hpf (<or=2+); Red Blood Cells-Urine 0 SEEN /hpf (0-5); Squamous Epithelial Cells - UA 0 SEEN /hpf (0-5)
[2025-05-21 08:07] LABS: Color, Urine Yellow (Yellow); Glucose, Dipstick Normal (Normal); Ketone-Dipstick Negative (Negative); Leukocyte Esterase-Dipstick Negative /ul (Negative); Nitrite-Dipstick Negative (Negative); Occult Blood-Urine Negative /ul (Negative); Protein-Dipstick 15 mg/dl (Negative); Specific Gravity, Urine 1.010 (1.002-1.030); Urine Bilirubin Dipstick Negative (Negative)
[2025-05-21 08:08] LABS: Free T3 2.2 pg/mL (2.18-3.98)
--- NOTE | 2025-05-21 09:16 | EKG12_ITS ---
Test Reason : EKG CHANGE Blood Pressure : */* mmHG Vent. Rate : 69 BPM Atrial Rate : 69 BPM P-R Int : 158 ms QRS Dur : 98 ms QT Int : 460 ms P-R-T Axes : 78 49 63 degrees QTcB Int : 492 ms Normal sinus rhythm Minimal voltage criteria for LVH, may be normal variant ( Sokolow-Lindsay ) Nonspecific ST and T wave abnormality Prolonged QT Abnormal ECG No previous ECGs available Confirmed by Alexandru Laughlin ([id number]), news editor BENITA NUNN ([id number]) on 05/22/2025 11:11:41 AM Referred By: EMERSON Confirmed By: Alexandru Laughlin
[2025-05-21 09:32] LABS: Partial Thromboplast Time 174.5 Seconds (24.1-36.2)
[2025-05-21 10:14] LABS: Triglycerides 46 mg/dL; Very Low Density Lipoprotein 9 mg/dL (5-40)
[2025-05-21 10:31] LABS: Cholesterol 114 mg/dL (<=200); Low Density Lipoprotein Calc. 61 mg/dL; cholesterol:hdl ratio screen 2.61
--- NOTE | 2025-05-21 10:49 | PCM.CONS.C ---
Assessment & Plan Assessment/Plan (1) Essential hypertension: (2) Stenosis of right internal carotid artery: (3) Abdominal aortic 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: QUALIFIERS: Abdominal aorta location: infrarenal aorta Qualified Code(s): I71.43 - Infrarenal abdominal aortic aneurysm, without rupture (4) 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: (5) Chronic renal failure, stage 3 (moderate): QUALIFIERS: Chronic kidney disease stage 3 subtype: stage 3a (GFR 45-59) Qualified Code(s): N18.31 - Chronic kidney disease, stage 3a (6) Type II endoleak of aortic graft: (7) Non-ST elevation [place] (NSTEMI): (8) Elevated TSH: PLAN: 85-year-old patient with multiple medical problems. Presented with symptoms of chest pressure last night to the ED here at [facility]. Patient had a history of hypertension, hyperlipidemia, hypothyroidism, former tobacco abuse also had a history of chronic diastolic heart failure history of abdominal aortic aneurysm s/p repair which was done in March 2023. History of carotid artery disease with right carotid endarterectomy. Diverticulosis with history of anemia. Has type II endoleak of aortic graft and he followed here by the vascular team just has been treated endovascular at the [facility]. Has right carotid endarterectomy with a history of TIA, CKD stage III AA and history of hypothyroidism with elevated TSH level on this admission. Patient presented to the ED he had narrow QRS complex tachycardia converted to sinus rhythm And his symptoms of chest pain resolved since then he does not have any further episode of chest pain he had change in the EKG mainly in the inferior lead with ST depression noted in the lateral lead. And also he had elevated high sensitive troponins. Started on treatment in the intensive care unit with heparin aspirin statin monitoring electrolytes and renal function Echocardiogram today showed EF in the range of 40-45% with inferior hypokinesia. No significant valve abnormality noted. Cardiac care plan; 1. Will continue medical treatment patient is stable clinically does not have any active chest pain. 2. I requested nephrology consultation patient has DALTON on CKD. Creatinine today is 1.86. 3. Discussed plan of cardiac catheterization tomorrow. 4. New onset atrial flutter converted to sinus rhythm to be addressed following cardiac catheterization And to consider long-term OAC, based on [id number] score. Answer all question related to cardiac catheterization to the family at bedside and grandson patient understand and would like to proceed with cardiac cath tomorrow. Lorraine Mcdowell MD,FAC,[facility] shipbuilding draftsperson HPI Consult Data Date of Consult: 05/21/25 HPI Narrative Reason for Consultation: Non-STEMI/atrial flutter with 2-1 AV block. HPI Narrative: CAROLINA SY, is a 85 M who presents [facility] Medical History Spigelian hernia Wears hearing aid Wears glasses History of steroid therapy Arthritis History of renal disease TIA (transient ischemic attack) Ataxia History of echocardiogram Easy bruising History of IBS Former smoker History of stress test Cardiology follow-up encounter History of irregular heartbeat Preop cardiovascular exam Stenosis of right internal carotid artery Abdominal aortic 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 Essential hypertension Lumbar disc disease 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 Hyperlipidemia Diverticulosis Pre-operative cardiovascular examination Anemia 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, NYHA class 2 RSV (respiratory syncytial virus pneumonia) Shortness of breath Cough productive of purulent sputum Home Medications ?Medication ?Instructions ?Recorded ?Last Taken ?Type losartan 100 mg tablet 100 mg PO DAILY BP 05/17/19 02/14/25 History multivitamin 1 tab PO DAILY supplement 05/18/19 05/21/24 History ascorbic acid (vitamin C) 500 mg 1,000 mg PO DAILY supplement 02/14/20 05/23/24 History capsule doxazosin 8 mg tablet 8 mg PO QHS prostate 05/23/24 01/10/25 History hydralazine 100 mg tablet 100 mg PO TID blood pressure 05/23/24 02/14/25 History magnesium oxide 400 mg (241.3 mg 400 mg PO DAILY supplement 05/23/24 05/21/24 History magnesium) tablet bempedoic acid 180 mg tablet 180 mg PO DAILY 07/11/24 01/12/25 History (Nexletol) ezetimibe 10 mg tablet 10 mg PO DAILY 07/11/24 02/14/25 History levothyroxine 25 mcg tablet 25 mcg PO DAILY 11/28/24 02/14/25 History cholecalciferol (vitamin D3) 125 125 mcg PO DAILY 01/12/25 Unknown History mcg (5,000 unit) tablet (Vitamin D3) ferrous sulfate 325 mg (65 mg 325 mg PO DAILY 01/12/25 01/12/25 History iron) tablet (Feosol) nifedipine 60 mg tablet,extended 60 mg PO DAILY 01/12/25 02/14/25 History release furosemide 40 mg tablet (Lasix) 40 mg PO DAILY PRN SOB #14 tabs 05/10/25 Unknown Rx carvedilol 6.25 mg tablet 6.25 mg PO BID 05/21/25 Unknown History furosemide 20 mg tablet 20 mg PO DAILY 05/21/25 Unknown History Allergy/AdvReac Type Severity Reaction Status Date / Time lisinopril Allergy Intermediate Rash Verified 05/21/25 01:22 atorvastatin calcium (From Allergy Other Verified 05/21/25 01:22 Lipitor) clonidine Allergy Unknown Verified 05/21/25 01:22 rosuvastatin calcium (From Allergy Other Verified 05/21/25 01:22 Crestor) Wzvskeo-BXX-HmJ Reductase Allergy Other Verified 05/21/25 01:22 Inhibitor (Rosgvfi-Pnh-Qof Reductase Inhibitor) Family History Father Lung cancer Liver cancer Mother Oral cancer Surgical History S/P spigelian hernia repair, follow-up exam S/P AAA repair (~02/2025) History of right-sided carotid endarterectomy Hx of cataract surgery Hx of appendectomy History of tonsillectomy History of back surgery History of colonoscopy History of blepharoplasty History of inguinal hernia repair History of umbilical hernia repair 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 Social History household members: spouse Smoking Status: Former smoker second hand exposure: No alcohol intake: never substance use type: does not use caffeine: Yes Type: coffee Number of servings: 2 Physical Exam Cardio Cardio Narrative: Patient seen and evaluated at bedside youth nutritional monitor showed normal sinus Cardiac exam S1-S2 is regular Chest exam diminished air entry bilateral with bilateral inspiratory rales Examination lower extremity no lower extremity edema. Objective Data Vital Signs: Vital Signs Temp Pulse Resp BP Pulse Ox O2 Del Method 98.1 F 72 13 115/65 98 Room Air 05/21/25 05:00 05/21/25 09:00 05/21/25 09:00 05/21/25 09:00 05/21/25 09:00 05/21/25 09:00 Oxygen Delivery Method Room Air Weight: 139 lb 12.369 oz Body Mass Index (BMI) 21.2 Intake & Output: Intake and Output for Last 24 Hours 05/19/25 05/20/25 05/21/25 23:59 23:59 23:59 Intake Total 591.33 / 591.33 Output Total 625 / 625 Balance -33.67 / -33.67 Lab / Micro Data 05/21/25:25 05/21/25 01:25 Labs: Laboratory Results - last 24 hr 05/21/25:25: WBC 4.5, RBC 3.58 L, Hgb 10.5 L, Hct 32.6 L, MCV 91.1, MCH 29.3, MCHC 32.2, RDW Std Deviation 49.6 H, RDW Coeff of Erma 14.7 H, Plt Count 92 L, MPV 11.2, Immature Gran % (Auto) 0.700, Neut % (Auto) 73.0 H, Lymph % (Auto) 16.2 L, [place] % (Auto) 5.8, Eos % (Auto) 3.6, Baso % (Auto) 0.7, Absolute Neuts (auto) 3.3, Absolute Lymphs (auto) 0.72 L, Nucleated RBC % 0, PT 16.0 H, INR 1.3, APTT 45.1 H, Sodium 140, Potassium 4.2, Chloride 104, Carbon Dioxide 21.4, Anion Gap 15, BUN 46 H, Creatinine 1.86 H, Estim Creat Clear Calc 26.20 L, Est GFR (MDRD) Non-Af 35 L, BUN/Creatinine Ratio 24.7 H, Glucose 115 H, Calcium 9.2, Magnesium 2.1, Troponin T High Sens 93 H*, NT pro BNP II 3942 H, TSH 9.790 H 05/21/25 03:35: Troponin T Hi Sens 2 Hr 222 H*, Free T4 1.00 05/21/25 03:55: Phosphorus 2.5 L, Triglycerides 46, Cholesterol 114, LDL Cholesterol, Calc 61, VLDL Cholesterol 9, HDL Cholesterol 44, Cholesterol/HDL Ratio 2.61, Free T3 pg/dL 2.2 05/21/25 06:00: Troponin T Hi Sens 4Hr 671 H* 05/21/25 07:55: Urine Color Yellow, Urine Clarity Clear, Urine pH 7.0, Ur Specific Hammond 1.010, Urine Protein 15 H, Urine Glucose (UA) Normal, Urine Ketones Negative, Urine Occult Blood Negative, Urine Nitrite Negative, Urine Bilirubin Negative, Urine Urobilinogen Normal, Ur Leukocyte Esterase Negative, Urine RBC 0 SEEN, Urine WBC 0 SEEN, Ur Squamous Epith Cells 0 SEEN, Urine Bacteria 0 SEEN, Urine Mucus 0 SEEN 05/21/25 09:05: APTT 174.5 H* Rhythm Strip Rhythm Strip: Atrial flutter Rate: 153 Ectopy: None Cardiology Labs/Tests 05/21/25 01:25: WBC 4.5, RBC 3.58 L, Hgb 10.5 L, Hct 32.6 L, MCV 91.1, MCH 29.3, MCHC 32.2, Plt Count 92 L, MPV 11.2, Immature Gran % (Auto) 0.700, Neut % (Auto) 73.0 H, Lymph % (Auto) 16.2 L, [place] % (Auto) 5.8, Eos % (Auto) 3.6, Baso % (Auto) 0.7, Absolute Neuts (auto) 3.3, Nucleated RBC % 0, PT 16.0 H, INR 1.3, APTT 45.1 H, Sodium 140, Potassium 4.2, Chloride 104, Carbon Dioxide 21.4, Anion Gap 15, BUN 46 H, Creatinine 1.86 H, Est GFR (MDRD) Non-Af 35 L, BUN/Creatinine Ratio 24.7 H, Glucose 115 H, Calcium 9.2, Magnesium 2.1 05/21/25 03:55: Phosphorus 2.5 L, Triglycerides 46, Cholesterol 114, VLDL Cholesterol 9, HDL Cholesterol 44, Cholesterol/HDL Ratio 2.61 05/21/25 07:55: Urine Color Yellow, Urine Clarity Clear, Urine pH 7.0, Ur Specific Hammond 1.010, Urine Protein 15 H, Urine Glucose (UA) Normal, Urine Ketones Negative, Urine Occult Blood Negative, Urine Nitrite Negative, Urine Bilirubin Negative, Urine Urobilinogen Normal, Ur Leukocyte Esterase Negative, Urine RBC 0 SEEN, Urine WBC 0 SEEN 05/21/25 09:05: APTT 174.5 H* Rhythm: EKG: ECHO: Stress Test: Cardiac Cath: PCI: CT Surgery: Holter monitor: EPS: PPM: CXR: Chest CT Scan: Radiography Diagnostic Testing: Radiology Impression Chest X-Ray 05/21/25 02:05 IMPRESSION: Increased mild central pulmonary venous congestion. Unchanged emphysema. Mild increase in bilateral basilar atelectatic pulmonary changes. Reading Location: [place] [address] TONY Risk Score for UA/STEMI Assesmment (YES = 1) Risk Stratification Applicable: No
--- NOTE | 2025-05-21 11:32 | PN_ITS ---
Subjective Subjective Patient seen and examined. His and grandson were by his bedside. He denied any chest pain, shortness of breath, palpitations, nausea or vomiting or any other symptoms. Review of systems otherwise negative. He has not had any more chest pain since admission. Review of systems otherwise negative. Objective Data Objective Data Vital Signs: Vital Signs Temp Pulse Resp BP Pulse Ox O2 Del Method 97.9 F 77 18 108/64 99 Room Air 05/21/25 10:00 05/21/25 11:00 05/21/25 11:00 05/21/25 11:00 05/21/25 11:05/21/25 11:00 Oxygen Delivery Method Room Air Weight: 139 lb 12.369 oz Body Mass Index (BMI) 21.2 Intake & Output: Intake and Output for Last 24 Hours 05/19/25 05/20/25 05/21/25 23:59 23:59 23:59 Intake Total 591.33 / 591.33 Output Total 625 / 625 Balance -33.67 / -33.67 Lab / Micro Data 05/21/25 01:25 05/21/25 01:25 Labs: Laboratory Results - last 24 hr 05/21/25 01:25: WBC 4.5, RBC 3.58 L, Hgb 10.5 L, Hct 32.6 L, MCV 91.1, MCH 29.3, MCHC 32.2, RDW Std Deviation 49.6 H, RDW Coeff of Erma 14.7 H, Plt Count 92 L, MPV 11.2, Immature Gran % (Auto) 0.700, Neut % (Auto) 73.0 H, Lymph % (Auto) 16.2 L, Butts % (Auto) 5.8, Eos % (Auto) 3.6, Baso % (Auto) 0.7, Absolute Neuts (auto) 3.3, Absolute Lymphs (auto) 0.72 L, Nucleated RBC % 0, PT 16.0 H, INR 1.3, APTT 45.1 H, Sodium 140, Potassium 4.2, Chloride 104, Carbon Dioxide 21.4, Anion Gap 15, BUN 46 H, Creatinine 1.86 H, Estim Creat Clear Calc 26.20 L, Est GFR (MDRD) Non-Af 35 L, BUN/Creatinine Ratio 24.7 H, Glucose 115 H, Calcium 9.2, Magnesium 2.1, Troponin T High Sens 93 H*, NT pro BNP II 3942 H, TSH 9.790 H 05/21/25 03:35: Troponin T Hi Sens 2 Hr 222 H*, Free T4 1.00 05/21/25 03:55: Phosphorus 2.5 L, Triglycerides 46, Cholesterol 114, LDL Cholesterol, Calc 61, VLDL Cholesterol 9, HDL Cholesterol 44, Cholesterol/HDL Ratio 2.61, Free T3 pg/dL 2.2 05/21/25 06:00: Troponin T Hi Sens 4Hr 671 H* 05/21/25 07:55: Urine Color Yellow, Urine Clarity Clear, Urine pH 7.0, Ur Specific Reeds 1.010, Urine Protein 15 H, Urine Glucose (UA) Normal, Urine Ketones Negative, Urine Occult Blood Negative, Urine Nitrite Negative, Urine Bilirubin Negative, Urine Urobilinogen Normal, Ur Leukocyte Esterase Negative, Urine RBC 0 SEEN, Urine WBC 0 SEEN, Ur Squamous Epith Cells 0 SEEN, Urine Bacteria 0 SEEN, Urine Mucus 0 SEEN 05/21/25 09:05: APTT 174.5 H* Radiography Diagnostic Testing: Radiology Impression Chest X-Ray 05/21/25 02:05 IMPRESSION: Increased mild central pulmonary venous congestion. Unchanged emphysema. Mild increase in bilateral basilar atelectatic pulmonary changes. Reading Location: [place] [address] Rhythm Strip Rhythm Strip: Atrial flutter Rate: 153 Ectopy: None Physical Exam Const alert, oriented x3 and no apparent distress General Appearance: cooperative HEENT normocephalic, head/scalp atraumatic, moist oral mucous membranes and oropharynx normal Eyes EOMs intact bilaterally Neck no lymphadenopathy and supple Lymph Lymphatic: no lymphadenopathy noted Resp normal respiratory effort, normal air movement and clear to auscultation bilaterally Cardio regular rate, regular rhythm, S1 normal heart sound and S2 normal heart sound GI normal to inspection, nondistended, normoactive bowel sounds, soft to palpation, non-tender and non-distended Extremity normal capillary refill, no clubbing, cyanosis or edema and no calf tenderness General Extremity: no tenderness to palpation of joints or extremities Skin General Skin Exam: no breakdown Neuro CN's II-XII intact bilaterally, no focal motor deficits and no sensory deficits noted Motor Exam: general weakness Psych thought process normal and cooperative Appearance: appropriate Assessment & Plan Assessment/Plan (1) Non-ST elevation [place] (NSTEMI): PLAN: Plan #Nonstemi * patient admitted with a complaint of chest pain. * initial troponin was elevated and trended upwards. It was initially 93, then went up to 222 then >600 * EKG showed no acute ST changes * on heparin drip and nitro drip * for cardiac cath tomorrow. PO aspirin and high intensity statin. * 2D echo showed EF of 40-45%, with EF reduced from previous echo * #Acute exacerbation of HFpEF * pro BNP is 3942, with CXR showing evidence of fluid overload with mild central pulmonary venous congestion and unchanged emphysema. * being diuresed with iV lasix. * losartan on hold due to impaired kidney function. * 2D echo as above. * #CKD IIIa * Cr is 1.8. This is around the baseline Cr. * Cardiology recommends nephrology consult to evaluate due to the dye he will be receiving tomorrow during cardiac cath. * #Hypothyroidism: * TSH was markedly elevated at 9.79. * free T3 and T4 are WNL. Synthroid increased to 50mcg daily. * #History of abdominal aortic aneurysm: s/p repair in 03/2023. 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 Follow vascular surgery on outpatient basis. #Hypertension: on losartan, nifedipine, carvedilol and hydralazine. #Hyperlipidemia: on ezetimibe and bempedoic acid. #History of right carotid artery stenosis: s/p right carotid endarterectomy. On aspirin and high intensity statin. #History of BPH: on doxazosin. #Osteoathritis: s/p lumbar laminectomy x 2: stable. On acetaminophen prn. DVT prophylaxis: on heparin drip. Charges/Coding Visit Charges Inpatient E&M: 28672 Subs Hosp L2
[2025-05-21] MEDS: BEMPEDOIC ACID 180 MG PO (13:10)
--- NOTE | 2025-05-21 13:40 | NURSING ---
Attempted to call Nephrology answering service with no answer at this time.
[2025-05-21 17:21] LABS: Partial Thromboplast Time 67.5 Seconds (24.1-36.2)
[2025-05-21 23:51] LABS: Partial Thromboplast Time 65.0 Seconds (24.1-36.2)
[2025-05-22] VITALS (22 sets, daily range): BP systolic 95–139; BP diastolic 51–94; PULSE 64–91; RESP 11–22; TEMP 36.4–36.9; O2SAT 95–99; BMI 20.7
[2025-05-22] MEDS: 0.9% Saline Lock 10 ML Syringe IV (05:25)
[2025-05-22 05:39] LABS: Hematocrit 27.8 % (40-54); Hemoglobin 9.2 g/dL (13.0-16.5); Immature Granulocytes Count 0.010 X10^3/uL (0.0-0.0); Mean Corp Hgb Conc 33.1 g/dL (32-36); Mean Corpuscular Volume 90.3 fL (80-94); Mean Platelet Vol. 11.1 fl (6.2-12.0); NRBC Flagged by Analyzer 0 % (0-5); POSITIVE COUNT YES; Platelet Count 83 K/mm3 (150-450); RBC Distribution Width CV 15.0 % (11.6-14.6); RBC Distribution Width SD 49.6 fl (35.1-43.9); Red Blood Count 3.08 M/mm3 (4.6-6.2); White Blood Count 3.9 K/mm3 (4.4-11.0)
--- NOTE | 2025-05-22 05:55 | RAD_ITS ---
PROCEDURE: CHEST 1 VIEW (PORTABLE) 05/22/2025 REASON FOR EXAM: AE CHF. TECHNIQUE: Frontal view of the chest. COMPARISON: 05/21/2025 FINDINGS: Stable apical and basilar atelectasis since the prior study. Stable enlarged cardiac size and aortic calcifications. Stable calcified hilar lymph nodes. Regressed pulmonary venous congestion changes. Stable osseous structures RAD/Chest 1 View (Portable) IMPRESSION: Slightly regressed pulmonary venous congestion changes since the prior study. Reading [facility] [address]
[2025-05-22 05:58] LABS: Partial Thromboplast Time 67.5 Seconds (24.1-36.2)
[2025-05-22 06:19] LABS: AST(SGOT) 84 U/L (<=37); Alanine Aminotransfer ALT/SGPT 19 U/L (<=46); Albumin, Serum 3.5 g/dL (3.4-4.8); Alkaline Phosphatase 37 U/L (40-129); Anion Gap 10 (5-15); BUN 43 mg/dL (4-19); BUN/Creat Ratio 24.2 RATIO (10-20); Calcium,Total 8.8 mg/dL (7.6-11.0); Carbon Dioxide 24.0 mmol/L (21.0-32.0); Chloride 104 mmol/L (98-108); Estimated Creatinine Clearance 27.06 ml/min (50-250); Globulin 2.9 g/dL (2.2-4.2); Glucose 92 mg/dL (70-99); Potassium 3.9 mmol/L (3.3-5.1); Pro- Brain NATRIURETIC PEPTIDE 11710 pg/mL (<=1800)
[2025-05-22] MEDS: BEMPEDOIC ACID 180 MG PO (08:39)
--- NOTE | 2025-05-22 09:59 | PN_ITS ---
Subjective Subjective Patient seen and examined. He had no active complaints. He is for cardiac cath today. Review of systems is otherwise negative. He has remained hemodynamically stable. He is for cardiac cath today. Objective Data Objective Data Vital Signs: Vital Signs Temp Pulse Resp BP Pulse Ox O2 Del Method 98.1 F 69 12 128/71 H 95 Room Air 05/22/25 09:00 05/22/25 09:00 05/22/25 09:00 05/22/25 09:00 05/22/25 09:22 05/22/25 09:22 Oxygen Delivery Method Room Air Weight: 136 lb 0.403 oz Body Mass Index (BMI) 20.7 Intake & Output: Intake and Output for Last 24 Hours 05/20/25 05/21/25 05/22/25 23:59 23:59 23:59 Intake Total 628.48 / 628.48 60.66 / 60.66 Output Total 1725 / 1725 700 / 700 Balance -1096.52 / -1096.52 -639.34 / -639.34 Lab / Micro Data 05/22/25 05:30 05/22/25 05:30 Labs: Laboratory Results - last 24 hr 05/21/25 03:55: Triglycerides 46, Cholesterol 114, LDL Cholesterol, Calc 61, VLDL Cholesterol 9, HDL Cholesterol 44, Cholesterol/HDL Ratio 2.61 05/21/25 17:00: APTT 67.5 H 05/21/25 23:15: APTT 65.0 H 05/22/25 05:30: WBC 3.9 L, RBC 3.08 L, Hgb 9.2 L, Hct 27.8 L, MCV 90.3, MCH 29.9, MCHC 33.1, RDW Std Deviation 49.6 H, RDW Coeff of Erma 15.0 H, Plt Count 83 L, MPV 11.1, Immature Gran % (Auto) 0.300, Neut % (Auto) 58.9, Lymph % (Auto) 25.9, [place] % (Auto) 9.6, Eos % (Auto) 4.8, Baso % (Auto) 0.5, Absolute Neuts (auto) 2.3, Absolute Lymphs (auto) 1.02, Nucleated RBC % 0, APTT 67.5 H, Sodium 138, Potassium 3.9, Chloride 104, Carbon Dioxide 24.0, Anion Gap 10, BUN 43 H, C reatinine 1.79 H, Estim Creat Clear Calc 27.06 L, Est GFR (MDRD) Non-Af 37 L, B UN/Creatinine Ratio 24.2 H, Glucose 92, Calcium 8.8, Total Bilirubin 0.50, AST 84 H, ALT 19, Alkaline Phosphatase 37 L, [place] [address] H, Total Protein 6.3, Albumin 3.5, Globulin 2.9, Albumin/Globulin Ratio 1.2 Radiography Diagnostic Testing: Radiology Impression Echocardiogram 05/21/25 04:57 Interpretation Summary The estimated ejection fraction is 40-45 %. Inferior hypokinesia Mild MR In comparison to previous echocardiogram reduced LV systolic function with EF moderate. No pericardial effusion Ordering Physician: Cameron Solares Performed By: Forrest Luis RCS Chest X-Ray 05/22/25 05:55 IMPRESSION: Slightly regressed pulmonary venous congestion changes since the prior study. Reading Location: [place] [address] Rhythm Strip Rhythm Strip: Atrial flutter Rate: 153 Ectopy: None Physical Exam Const alert, oriented x3, no apparent distress and average body habitus General Appearance: cooperative HEENT normocephalic, head/scalp atraumatic, hearing grossly normal bilaterally, moist oral mucous membranes and oropharynx normal Eyes PERRL, EOMs intact bilaterally and conjunctivae normal Neck no lymphadenopathy, supple and no JVD Lymph Lymphatic: no lymphedema noted Resp normal respiratory effort, normal air movement, no retractions, no use of accessory muscles and clear to auscultation bilaterally Cardio regular rate, regular rhythm, S1 normal heart sound and S2 normal heart sound GI normal to inspection, nondistended, normoactive bowel sounds, soft to palpation, non-tender and non-distended Extremity normal to inspection, full ROM, normal capillary refill, no clubbing, cyanosis or edema and no calf tenderness General Extremity: no tenderness to palpation of joints or extremities Skin General Skin Exam: no breakdown Neuro oriented x3, CN's II-XII intact bilaterally, moves all extremities, no focal motor deficits and no sensory deficits noted Sensorium / Orientation: awake, alert, oriented to person, oriented to place and oriented to time Speech: speech normal Motor Exam: general weakness Psych thought process normal, cooperative and affect normal Appearance: appropriate Assessment & Plan Assessment/Plan (1) Non-ST elevation [place] (NSTEMI): PLAN: Plan #Nonstemi * patient admitted with a complaint of chest pain. * initial troponin was elevated and trended upwards. It was initially 93, then went up to 222 then >600 * EKG showed no acute ST changes * on heparin drip and nitro drip; now off nitro drip * for cardiac cath today. PO aspirin and high intensity statin. * 2D echo showed EF of 40-45%, with EF reduced from previous echo * #Acute exacerbation of HFpEF * pro BNP is 3942, with CXR showing evidence of fluid overload with mild central pulmonary venous congestion and unchanged emphysema. * being diuresed with iV lasix. * losartan on hold due to impaired kidney function. * 2D echo as above. * #CKD IIIa * Cr is 1.79 today. This is around the baseline Cr. * Cardiology recommends nephrology consult to evaluate due to the dye he will be receiving during cardiac cath. * nephrology consulted, await recs. * #Hypothyroidism: * TSH was markedly elevated at 9.79. * free T3 and T4 are WNL. Synthroid increased to 50mcg daily. * #History of abdominal aortic aneurysm: s/p repair in 03/2023. 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 Follow vascular surgery on outpatient basis. #Hypertension: on losartan, nifedipine, carvedilol and hydralazine. #Hyperlipidemia: on ezetimibe and bempedoic acid. #History of right carotid artery stenosis: s/p right carotid endarterectomy. On aspirin and high intensity statin. #History of BPH: on doxazosin. #Osteoathritis: s/p lumbar laminectomy x 2: stable. On acetaminophen prn. DVT prophylaxis: on heparin drip. Charges/Coding Visit Charges Inpatient E&M: 06624 Subs Hosp L2
--- NOTE | 2025-05-22 10:21 | CASEMGMT ---
CHRISTIANO GAYLE Assessment Face to Face with patient for initial transition planning/care coordination assessment. CHRISTIANO GAYLE introduced self and role at [facility], pt voices understanding. Pt is A&Ox4 and is resting comfortably in bed and is calm. Care providers, pharmacy, and demographics verified. Admitting dx: A-Flutter with RVR LACE Strata: 3 PCP: Dallas Reed Specialists: RON Preferred Pharmacy: [facility] Insurance: [facility] A/B, [place] Prescription Benefit: Yes LNOK: Libra ( - x 67 years) Living Arrangements: Pt lives with his in a 2 story home with 2 total steps to enter ADLs/IADLs: Pt states that he is indep and denies needs or concerns Transportation: Pt states that he drives [employer] and denies concerns. Pt's also drives DME: Pt states that he is in the process of getting a walk in shower installed. Pt states that he has access to a cane and walker but does not use. Pt has a BP Machine and pulse ox. HHC/SNF: Denies HH history. Reports SNF hx @ [facility] years ago after orthopedic surgery Pt?s goal: Home Plan: Home with pt's once medically ready, follow for anticoag. Dr Laughlin from [facility] to the pt's room at this time and states that he is unsure if the pt will need a cardiac cath or not. The specialist states that he plans to consult nephrology before making a decision. The right of way clearer also plans to have the pt undergo a stress test either today or tomorrow. Pt states understanding and denies any additional questions at this time. Pt states that he feels safe returning home with his once medically ready and denies further needs or concerns now. CM to follow. Steve Fermin RN, CM
--- NOTE | 2025-05-22 10:23 | PCM.PN.CARD ---
Subjective Subjective Patient resting comfortably in bed. He tells me he feels really good today and is active looking forward to going home. The patient's creatinine remains elevated 1.79. He was planned to have a heart catheterization done later today. However, the patient reports to me he never really had chest pain he does had fluttering in his chest with the atrial flutter and a sensation that his heart was running away from him when he presented. His ECG did not show any acute ischemic changes either. His enzymes were positive but in the face of renal failure and tachycardia. Objective Data Vital Signs: Vital Signs Temp Pulse Resp BP Pulse Ox O2 Del Method 98.1 F 69 12 128/71 H 95 Room Air 05/22/25 09:00 05/22/25 09:00 05/22/25 09:00 05/22/25 09:00 05/22/25 09:22 05/22/25 09:22 Oxygen Delivery Method Room Air Weight: 136 lb 0.403 oz Body Mass Index (BMI) 20.7 Intake & Output: Intake and Output for Last 24 Hours 05/20/25 05/21/25 05/22/25 23:59 23:59 23:59 Intake Total 628.48 / 628.48 60.66 / 60.66 Output Total 1725 / 1725 700 / 700 Balance -1096.52 / -1096.52 -639.34 / -639.34 Lab / Micro Data 05/22/25 05:30 05/22/25 05:30 Labs: Laboratory Results - last 24 hr 05/21/25 03:55: Cholesterol 114, LDL Cholesterol, Calc 61, Cholesterol/HDL Ratio 2.61 05/21/25 17:00: APTT 67.5 H 05/21/25 23:15: APTT 65.0 H 05/22/25 05:30: WBC 3.9 L, RBC 3.08 L, Hgb 9.2 L, Hct 27.8 L, MCV 90.3, MCH 29.9, MCHC 33.1, RDW Std Deviation 49.6 H, RDW Coeff of Erma 15.0 H, Plt Count 83 L, MPV 11.1, Immature Gran % (Auto) 0.300, Neut % (Auto) 58.9, Lymph % (Auto) 25.9, [place] % (Auto) 9.6, Eos % (Auto) 4.8, Baso % (Auto) 0.5, Absolute Neuts (auto) 2.3, Absolute Lymphs (auto) 1.02, Nucleated RBC % 0, APTT 67.5 H, Sodium 138, Potassium 3.9, Chloride 104, Carbon Dioxide 24.0, Anion Gap 10, BUN 43 H, Creatinine 1.79 H, Estim Creat Clear Calc 27.06 L, Est GFR (MDRD) Non-Af 37 L, BUN/Creatinine Ratio 24.2 H, Glucose 92, Calcium 8.8, Total Bilirubin 0.50, AST 84 H, ALT 19, Alkaline Phosphatase 37 L, [place] [address] H, Total Protein 6.3, Albumin 3.5, Globulin 2.9, Albumin/Globulin Ratio 1.2 Rhythm Strip Rhythm Strip: Sinus Rhythm Rate: 70 Ectopy: None Cardiology Labs/Tests 05/21/25 03:55: Cholesterol 114, Cholesterol/HDL Ratio 2.61 05/21/25 17:00: APTT 67.5 H 05/21/25 23:15: APTT 65.0 H 05/22/25 05:30: WBC 3.9 L, RBC 3.08 L, Hgb 9.2 L, Hct 27.8 L, MCV 90.3, MCH 29.9, MCHC 33.1, Plt Count 83 L, MPV 11.1, Immature Gran % (Auto) 0.300, Neut % (Auto) 58.9, Lymph % (Auto) 25.9, [place] % (Auto) 9.6, Eos % (Auto) 4.8, Baso % (Auto) 0.5, Absolute Neuts (auto) 2.3, Nucleated RBC % 0, APTT 67.5 H, Sodium 138, Potassium 3.9, Chloride 104, Carbon Dioxide 24.0, Anion Gap 10, BUN 43 H, Creatinine 1.79 H, Est GFR (MDRD) Non-Af 37 L, BUN/Creatinine Ratio 24.2 H, Glucose 92, Calcium 8.8, Total Bilirubin 0.50 Rhythm: EKG: ECHO: Stress Test: Cardiac Cath: PCI: CT Surgery: Holter monitor: EPS: PPM: CXR: Chest CT Scan: Radiography Diagnostic Testing: Radiology Impression Echocardiogram 05/21/25 04:57 Interpretation Summary The estimated ejection fraction is 40-45 %. Inferior hypokinesia Mild MR In comparison to previous echocardiogram reduced LV systolic function with EF moderate. No pericardial effusion Ordering Physician: Cameron Solares Performed By: Forrest Luis RCS Chest X-Ray 05/22/25 05:55 IMPRESSION: Slightly regressed pulmonary venous congestion changes since the prior study. Reading Location: [place] [id number] Physical Exam Const alert and oriented x3 HEENT normocephalic Eyes EOMs intact bilaterally Neck no JVD and no carotid bruits Chest inspection of chest normal Resp normal respiratory effort and clear to auscultation bilaterally Cardio Rate: regular rate Rhythm: regular rhythm Heart Sounds: S1 normal and S2 normal; Negative for click, gallop or murmur GI normal to inspection, nondistended, normoactive bowel sounds Extremity no pedal edema Neuro Neuro Narrative: Alert and oriented x 3 Psych mental status grossly normal Assessment & Plan Assessment/Plan (1) DALTON (acute kidney injury): PLAN: Patient has acute on chronic renal insufficiency. BUN is 43 creatinine 1.79 with a GFR of 35 yesterday today is BUN is 43 creatinine 1.79 with a GFR of 37. Renal has been consulted yesterday for their opinion concerning contrast exposure with catheterization. However, at this point, feel that the better part of valor would be to pursue a pharmacologic nuclear stress test to define his extent of potential cardiac ischemia. We will wait nephrology's input as well. (2) Non-ST elevation CO (NSTEMI): PLAN: The patient's initial ECG was in atrial flutter with a heart rate of [address] and T wave changes. Following spontaneous conversion to sinus rhythm the heart rate was in the 80 bpm range with what appeared to be ST and T wave changes consistent with LVH. Patient's troponins were 93, 222 and then 671 on the third set. The patient has had no anginal type symptoms. He does have an elevated creatinine and it is likely he has atherosclerotic disease given his AAA. It is likely that this is a demand ischemic type event from his tachycardia. Patient also is mildly anemic hemoglobin 9.2. Given the patient's renal sufficiency, his relative anemia and thrombocytopenia, and the fact that he feels fine, I am concerned about exposing him to contrast with a catheterization in this given situation. I discussed this in detail with the patient and would recommend that we perform a pharmacologic nuclear stress test to define the severity of ischemia which would also help guide further catheterization approaches and interventions. Pharmacologic nuclear stress test will be done today. (3) New onset atrial flutter: PLAN: Patient presented with new onset atrial flutter which spontaneously converted to sinus rhythm by his report. This was documented in the emergency department both on ECG and rhythm strip. (4) Anemia: QUALIFIERS: Anemia type: unspecified type Qualified Code(s): D64.9 - Anemia, unspecified PLAN: Patient's hemoglobin is 9.2. Platelets are 83,000 which are trending down. (5) Essential hypertension: PLAN: Patient's blood pressure has been adequate controlled in the hospital and by his report in his home environment with medical therapy. (6) Shortness of breath: PLAN: Patient shortness of breath resolved when he reverted from atrial flutter back into sinus rhythm. His BNP was 5468 in January 2025 it was down to 3900 on admission and now is 11,710. The patient has been receiving IV Lasix and is LV ejection fraction is known to be in the 40-45% by echo on this admission. PLAN: Plan 1. Will cancel catheterization for today. 2. Await nephrology input. 3. Will proceed with pharmacologic nuclear stress test if no significant ischemia the patient could be discharged home on his current medical therapy. 4. Patient should follow-up with his er rn in the next 7 to 10 days. Charges/Coding Visit Charges Inpatient E&M: 51436 [facility] Hosp L3
--- NOTE | 2025-05-22 10:53 | NURSING ---
1045a Patient transported via wheelchair to Cardiology for a stress test. patient off unit at this time.
--- NOTE | 2025-05-22 12:05 | PCM.PN.BLA ---
Progress Note Went to see patient, was on stress test. Chart reviewed. Creatinine stable. No plans for coronary angiogram as of today.
--- NOTE | 2025-05-22 15:36 | STRESSREP ---
Stress Test Report Date: 05/22/2025 Procedure: Pharmacologic stress nuclear imaging study Indications: Chest pain Consent: Per the patient Procedure: The patient underwent pharmacologic (Regadenoson 0.4mg ) evaluation with a peak heart rate of 92 beats per minute (68%predicted maximal heart rate) and a peak blood pressure of 118/82 mmHg. The baseline ECG demonstrated sinus rhythm with LVH with strain pattern. The peak pharmacologic ECG failed to show any ischemic changes. Frequent PVCs post pharmacologic infusion. There was no complaint of chest discomfort during pharmacologic infusion or recovery. The patient was injected with 12.0 millicuries of technetium 99m Cardiolite and subsequently rest SPECT Cardiolite nuclear imaging was obtained in the horizontal long, vertical long, and short axis views. The patient underwent pharmacologic (Regadenoson) evaluation. The patient was injected with 36.0 millicuries of technetium 99m Cardiolite and subsequently stress SPECT Cardiolite nuclear imaging was obtained in the horizontal long, vertical long, and short axis views. A gated Cardiolite study at peak stress was obtained. The examination was stopped secondary to completion of protocol. Rest and stress SPECT Cardiolite nuclear imaging status post realignment, normalization, and attenuation correction demonstrate large perfusion defect of the inferior wall suggestive of previous infarct with moderate kelby-infarct ischemia mild to moderate reversible ischemia of the lateral wall is also noted. The gated study shows inferior hypokinesis. The reported LVEF is 48%. Impression: 1. Pharmacologic (Regadenoson) evaluation 2. Peak pharmacologic ECG with no diagnostic ischemic changes. 3. Frequent PVCs in recovery. 5. 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 Reversible ischemia of the lateral wall. 6. The gated Cardiolite study reports an LVEF of 48%. This note was generated with Iddictionation software. It may contain incorrect words, spelling, and punctuation that were not noted in checking the note before signing.
--- NOTE | 2025-05-22 16:20 | PCM.PN.CARD ---
Subjective Subjective Patient completed stress test today which was pharmacologic nuclear. 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 Patient continues to be symptom-free he is ambulating in the halls. Objective Data Vital Signs: Vital Signs Temp Pulse Resp BP Pulse Ox O2 Del Method 98.1 F 85 15 101/51 L 97 Room Air 05/22/25 10:00 05/22/25 15:51 05/22/25 15:00 05/22/25 15:51 05/22/25 15:00 05/22/25 15:00 Oxygen Delivery Method Room Air Weight: 136 lb 0.403 oz Body Mass Index (BMI) 20.7 Intake & Output: Intake and Output for Last 24 Hours 05/20/25 05/21/25 05/22/25 23:59 23:59 23:59 Intake Total 628.48 / 628.48 149.48 / 149.48 Output Total 1725 / 1725 700 / 700 Balance -1096.52 / -1096.52 -550.52 / -550.52 Lab / Micro Data 05/22/25 05:30 05/22/25 05:30 Labs: Laboratory Results - last 24 hr 05/21/25 17:00: APTT 67.5 H 05/21/25 23:15: APTT 65.0 H 05/22/25 05:30: WBC 3.9 L, RBC 3.08 L, Hgb 9.2 L, Hct 27.8 L, MCV 90.3, MCH 29.9, MCHC 33.1, RDW Std Deviation 49.6 H, RDW Coeff of Erma 15.0 H, Plt Count 83 L, MPV 11.1, Immature Gran % (Auto) 0.300, Neut % (Auto) 58.9, Lymph % (Auto) 25.9, [place] % (Auto) 9.6, Eos % (Auto) 4.8, Baso % (Auto) 0.5, Absolute Neuts (auto) 2.3, Absolute Lymphs (auto) 1.02, Nucleated RBC % 0, APTT 67.5 H, Sodium 138, Potassium 3.9, Chloride 104, Carbon Dioxide 24.0, Anion Gap 10, BUN 43 H, Creatinine 1.79 H, Estim Creat Clear Calc 27.06 L, Est GFR (MDRD) Non-Af 37 L, BUN/Creatinine Ratio 24.2 H, Glucose 92, Calcium 8.8, Total Bilirubin 0.50, AST 84 H, ALT 19, Alkaline Phosphatase 37 L, [place] [address] H, Total Protein 6.3, Albumin 3.5, Globulin 2.9, Albumin/Globulin Ratio 1.2 Rhythm Strip Rhythm Strip: Sinus Rhythm Rate: 70 Ectopy: None Cardiology Labs/Tests 05/21/25 17:00: APTT 67.5 H 05/21/25 23:15: APTT 65.0 H 05/22/25 05:30: WBC 3.9 L, RBC 3.08 L, Hgb 9.2 L, Hct 27.8 L, MCV 90.3, MCH 29.9, MCHC 33.1, Plt Count 83 L, MPV 11.1, Immature Gran % (Auto) 0.300, Neut % (Auto) 58.9, Lymph % (Auto) 25.9, [place] % (Auto) 9.6, Eos % (Auto) 4.8, Baso % (Auto) 0.5, Absolute Neuts (auto) 2.3, Nucleated RBC % 0, APTT 67.5 H, Sodium 138, Potassium 3.9, Chloride 104, Carbon Dioxide 24.0, Anion Gap 10, BUN 43 H, Creatinine 1.79 H, Est GFR (MDRD) Non-Af 37 L, BUN/Creatinine Ratio 24.2 H, Glucose 92, Calcium 8.8, Total Bilirubin 0.50 Rhythm: EKG: ECHO: Stress Test: Cardiac Cath: PCI: CT Surgery: Holter monitor: EPS: PPM: CXR: Chest CT Scan: Radiography Diagnostic Testing: Radiology Impression Chest X-Ray 05/22/25 05:55 IMPRESSION: Slightly regressed pulmonary venous congestion changes since the prior study. [facility] Assessment & Plan Assessment/Plan (1) Non-ST elevation CO (NSTEMI): PLAN: Patient is bumped his enzymes up to 650 are probably consistent with an ischemia related to demand. 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 The anterior wall appears to be well-perfused. The patient has no recurring chest symptoms he has been active in his room without any symptoms. He has had no recurrence of his atrial flutter. I recommend the patient be continued on his carvedilol 6.25 mg twice daily his furosemide 20 mg daily and the hydralazine 100 mg 3 times daily losartan 100 mg daily and his Nexletol as well as nifedipine. The patient should be reevaluated in the [facility] office in 2 weeks with one of the WEN's and check a basic metabolic panel to determine the patient's renal function and then see Dr. Laughlin in 6 weeks. Should the patient have symptoms consistent with angina would recommend pursuing left heart catheterization. PLAN: Plan 1. Continue current medical therapy. 2. Basic metabolic panel and WEN visit with the [facility] in 2 weeks. 3. Patient instructed to call the [facility] should he have any type of chest tightness or symptoms consistent with angina. 4. Patient to follow-up with Dr. Laughlin in 6 weeks in the office.
--- NOTE | 2025-05-22 16:22 | CHAPLAIN ---
Type of Pastoral Visit _x__ Initial Visit ___ Follow-up Visit ___ On-call Visit ___ General Patient Visit ___ Spiritual Assessment ___ Family Conference ___ Bereavement ___ Rapid Response ___ Code Blue ___ Other (describe below) Pastoral Care Referral From _x__ Patient ___ Family ___ Nurse ___ Physician ___ Rocket Motor Mechanic ___ Laboratory Analyst ___ Other (describe below) Sacrament/Intervention _x__ Active listening ___ Anointing ___ Pentecostalism ___ Bereavement ___ Communion _x__ Lin exploration ___ _x__ Life review _x__ Prayer ___ Reconciliation ___ Sacrament of Sick ___ Supportive presence ___ Wedding ___ Other (describe below) Pastoral Comments 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
--- NOTE | 2025-05-22 17:23 | DCINST_ITS ---
Discharge Instructions DC O2, CPAP, BIPAP needs Home O2 Discharge instructions: No Dressing / Incision Discharge Activity: Return to Normal Activity Weight Bearing Status: Weight bearing as tolerated Dressing / Incision Call your doctor if you observe: Fever of 101 or Higher Follow Up Care Test Results: Test results from this visit will be discussed in further detail at your follow- up appointment, if applicable. Discharge Plan Admission Admit Date/Time: 05/21/25 04:22 Primary Reason for Your Visit: chest pain Attending Provider: Olamide Morales Primary Care Provider: Dallas Reed Consulting Providers: Emily Horner; Tamera Jorgensen; Marcel Cordova; Randy Soler; Jaciel Bahena; Dedrick Zamarripa; Gilmar Mueller; Donato Longoria; Cameron Leiva; Lorraine Mcdowell; Alexandru Laughlin; Beronica Turcios; Elisha Eason; Jm Wilson; Sinan Toro; Mike Jay NP; Kylah Arias; Jeremy Sebastian; Cameron Solares; Gricel Donald Instructions Patient Instructions: ED Heart Disease Risk Factors Discharge Orders/Prescriptions Prescriptions: Continued multivitamin Tablet 1 tab PO DAILY losartan 100 mg tablet 100 mg PO DAILY ascorbic acid (vitamin C) 500 mg capsule 1,000 mg PO DAILY magnesium oxide 400 mg (241.3 mg magnesium) tablet 400 mg PO DAILY doxazosin 8 mg tablet 8 mg PO QHS hydralazine 100 mg tablet 100 mg PO TID nifedipine 60 mg tablet extended release 60 mg PO DAILY ferrous sulfate [Feosol] 325 mg (65 mg iron) tablet 325 mg PO DAILY cholecalciferol (vitamin D3) [Vitamin D3] 125 mcg (5,000 unit) tablet 125 mcg PO DAILY ezetimibe 10 mg tablet 10 mg PO DAILY Nexletol 180 mg tablet 180 mg PO DAILY levothyroxine 25 mcg tablet 25 mcg PO DAILY carvedilol 6.25 mg tablet 6.25 mg PO BID furosemide 20 mg tablet 20 mg PO DAILY Referrals / Follow Up: Alexandru Laughlin MD [Med Staff - Active Staff] - Within 2 Weeks Dallas Reed MD [Primary Care Provider] - Within 1 Week Disposition Disposition (needs filled in before D/C Order can be placed): Home, Self Care
--- NOTE | 2025-05-22 17:28 | DS.PCM_ITS ---
Providers Date of Admission: 05/21/25 Date of Discharge: 05/22/25 Primary Care Physician: Dr. Dallas Reed MD Consultations 05/21/25 04:57 Consult: Cardiology Routine Consulting Provider: [facility] Reason for Consult: PAF; with RVR, CP, Elevated Troponin and AE CHF. EMERGENT Consult: No MD Notified: Yes Date Notified: 05/21/25 Time Notified: 04:26 Method of Notification: ED Physician Initiated 05/21/25 13:39 Consult: Nephrology Routine Consulting Provider: Gricel Donald Reason for Consult: DALTON on CKD EMERGENT Consult: No MD Notified: Yes Date Notified: 05/21/25 Time Notified: 14:37 Method of Notification: Answering Service Reason For Visit: SUSPECTED TRANSIENT AFLUTTER WITH RVR ELEVATED Diagnosis Discharge Diagnosis (1) Non-ST elevation [place] (NSTEMI): Status: Acute Code(s): I21.4 - Non-ST elevation (NSTEMI) myocardial infarction Plan #Nonstemi * patient admitted with a complaint of chest pain. * initial troponin was elevated and trended upwards. It was initially 93, then went up to 222 then >600 * EKG showed no acute ST changes * on heparin drip and nitro drip; now off nitro drip * for cardiac cath today. PO aspirin and high intensity statin. * 2D echo showed EF of 40-45%, with EF reduced from previous echo * #Acute exacerbation of HFpEF * pro BNP is 3942, with CXR showing evidence of fluid overload with mild central pulmonary venous congestion and unchanged emphysema. * being diuresed with iV lasix. * losartan on hold due to impaired kidney function. * 2D echo as above. * #CKD IIIa * Cr is 1.79 today. This is around the baseline Cr. * Cardiology recommends nephrology consult to evaluate due to the dye he will be receiving during cardiac cath. * nephrology consulted, await recs. * #Hypothyroidism: * TSH was markedly elevated at 9.79. * free T3 and T4 are WNL. Synthroid increased to 50mcg daily. * #History of abdominal aortic aneurysm: s/p repair in 03/2023. 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 Follow vascular surgery on outpatient basis. #Hypertension: on losartan, nifedipine, carvedilol and hydralazine. #Hyperlipidemia: on ezetimibe and bempedoic acid. #History of right carotid artery stenosis: s/p right carotid endarterectomy. On aspirin and high intensity statin. #History of BPH: on doxazosin. #Osteoathritis: s/p lumbar laminectomy x 2: stable. On acetaminophen prn. DVT prophylaxis: on heparin drip. Medications at Discharge Home Medications losartan 100 mg tablet 100 mg PO DAILY BP 05/17/19 multivitamin 1 tab PO DAILY supplement 05/18/19 ascorbic acid (vitamin C) 500 mg capsule 1,000 mg PO DAILY supplement 02/14/20 doxazosin 8 mg tablet 8 mg PO QHS prostate 05/23/24 hydralazine 100 mg tablet 100 mg PO TID blood pressure 05/23/24 magnesium oxide 400 mg (241.3 mg magnesium) tablet 400 mg PO DAILY supplement 05/23/24 bempedoic acid 180 mg tablet (Nexletol) 180 mg PO DAILY 07/11/24 ezetimibe 10 mg tablet 10 mg PO DAILY 07/11/24 levothyroxine 25 mcg tablet 25 mcg PO DAILY 11/28/24 cholecalciferol (vitamin D3) 125 mcg (5,000 unit) tablet (Vitamin D3) 125 mcg PO DAILY vitamin 01/12/25 ferrous sulfate 325 mg (65 mg iron) tablet (Feosol) 325 mg PO DAILY iron replacement 01/12/25 nifedipine 60 mg tablet,extended release 60 mg PO DAILY blood pressure 01/12/25 carvedilol 6.25 mg tablet 6.25 mg PO BID 05/21/25 furosemide 20 mg tablet 20 mg PO DAILY 05/21/25 Hospital Course Operations None Procedures Stress test Summary of Care Provided Minutes Spent on Discharge: 45 Hospital Course: Patient is an 85-year-old male with a past medical history as outlined who was admitted through the ED on 05/21/2025 with complaint of chest pain. The symptoms started the evening of the day before admission. He felt he could not breathe and had assisted chest pain which was substernal and pressure-like. The pain was severe and nonradiating and nothing seems to make it better or worse. Try to sit up and walk around but he had intermittent shortness of breath. He took antacid thinking his symptoms would improve as they may be due to help with his symptoms. He had no other symptoms. He came into the ED on account of the chest pain. In the ED he was found to be in atrial flutter with RVR. Initial troponin was elevated at 93. proBNP was elevated at 3942. Chest x-ray showed increased mild central pulmonary venous congestion with unchanged emphysema. He was admitted and managed for acute exacerbation of heart failure as well as non- STEMI. Cardiology was consulted. He was also diagnosed with A-fib with RVR. He was placed on heparin drip and nitro drip. 2D echo done showed EF of 40 to 45% with EF reduced from previous echo. He had a stress test as per cardiology recommendation on 05/22/2025 which showed evidence of inferior infarct with mild to moderate kelby-infarct ischemia and reversible ischemia of the lateral wall and EF of 48%. Patient did not have any recurrence of his chest pain during admission. Cardiology did recommend that the patient be continued on his carvedilol 6.25 mg twice daily and Lasix 20 mg daily as well as hydralazine 100 mg 3 times daily and losartan 100 mg daily and to continue on his Nexletol as well as nifedipine. He should follow-up with with the heart group in 1 to 2 weeks. Patient was amenable to discharge and so was discharged home on 05/22/2025. He is to follow-up with his primary care doctor and cardiology as stated above. Patient was seen and examined on day of discharge and he had no active complaints. He had an uneventful night and review of systems otherwise negative. Labs and vitals reviewed. Home medication reviewed and reconciled. Physical Exam Const alert, oriented x3, no apparent distress and average body habitus General Appearance: cooperative HEENT normocephalic, head/scalp atraumatic, hearing grossly normal bilaterally, moist oral mucous membranes and oropharynx normal Mouth: oral and palatal mucosa normal Eyes PERRL, EOMs intact bilaterally and conjunctivae normal Neck no lymphadenopathy, supple and no JVD Lymph Lymphatic: no lymphedema noted Resp normal respiratory effort, normal air movement, no retractions, no use of accessory muscles and clear to auscultation bilaterally Cardio regular rate, regular rhythm, S1 normal heart sound and S2 normal heart sound GI normal to inspection, nondistended, normoactive bowel sounds, soft to palpation, non-tender and non-distended Extremity normal to inspection, full ROM, normal capillary refill, no clubbing, cyanosis or edema and no calf tenderness General Extremity: no tenderness to palpation of joints or extremities Skin no rashes or lesions noted General Skin Exam: no breakdown Neuro oriented x3, moves all extremities, no focal motor deficits and no sensory deficits noted Sensorium / Orientation: awake, alert, oriented to person, oriented to place and oriented to time Speech: speech normal Motor Exam: general weakness Psych thought process normal, cooperative and affect normal Appearance: appropriate Weight / BMI Weight Weight: 136 lb 0.403 oz Body Mass Index (BMI) 20.7 ABG / Lab / Microbiology Data 05/22/25 05:30 05/22/25 05:30 Laboratory: Laboratory Results - last 24 hr 05/21/25 23:15: APTT 65.0 H 05/22/25 05:30: WBC 3.9 L, RBC 3.08 L, Hgb 9.2 L, Hct 27.8 L, MCV 90.3, MCH 29.9, MCHC 33.1, RDW Std Deviation 49.6 H, RDW Coeff of Erma 15.0 H, Plt Count 83 L, MPV 11.1, Immature Gran % (Auto) 0.300, Neut % (Auto) 58.9, Lymph % (Auto) 25.9, Mcculloch % (Auto) 9.6, Eos % (Auto) 4.8, Baso % (Auto) 0.5, Absolute Neuts (auto) 2.3, Absolute Lymphs (auto) 1.02, Nucleated RBC % 0, APTT 67.5 H, Sodium 138, Potassium 3.9, Chloride 104, Carbon Dioxide 24.0, Anion Gap 10, BUN 43 H, C reatinine 1.79 H, Estim Creat Clear Calc 27.06 L, Est GFR (MDRD) Non-Af 37 L, B UN/Creatinine Ratio 24.2 H, Glucose 92, Calcium 8.8, Total Bilirubin 0.50, AST 84 H, ALT 19, Alkaline Phosphatase 37 L, [place] [address] H, Total Protein 6.3, Albumin 3.5, Globulin 2.9, Albumin/Globulin Ratio 1.2 Radiography Diagnostic Testing: Radiology Impression Chest X-Ray 05/22/25 05:55 IMPRESSION: Slightly regressed pulmonary venous congestion changes since the prior study. Reading [facility] Instructions Discharge Activity: Return to Normal Activity Weight Bearing Status: Weight bearing as tolerated Call your doctor if you observe: Fever of 101 or Higher DC O2, CPAP, BIPAP Needs Home O2 Discharge instructions: No Meaningful Use Info Meaningful Use Meaningful Use Diagnoses (Choose all that apply): CHF CHF CHASITY/ARB ordered at discharge?: Yes Documented LVEF (%): 48 Discharge Plan Admission Admit Date/Time: 05/21/25 04:22 Primary Reason for Your Visit: chest pain Attending Provider: Olamide Morales Primary Care Provider: Dallas Reed Consulting Providers: Emily Horner; Tamera Jorgensen; Marcel Cordova; Randy Soler; Jaciel Bahena; Dedrick Zamarripa; Gilmar Mueller; Donato Longoria; Cameron Leiva; Lorraine Mcdowell; Alexandru Laughlin; Beronica Turcios; Elisha Eason; Jm Wilson; Sinan Toro; Mike Jay NP; Kylah Arias; Jeremy Sebastian; Cameron Solares; Gricel Donald Instructions Patient Instructions: ED Heart Disease Risk Factors Discharge Orders/Prescriptions Prescriptions: Continued multivitamin Tablet 1 tab PO DAILY losartan 100 mg tablet 100 mg PO DAILY ascorbic acid (vitamin C) 500 mg capsule 1,000 mg PO DAILY magnesium oxide 400 mg (241.3 mg magnesium) tablet 400 mg PO DAILY doxazosin 8 mg tablet 8 mg PO QHS hydralazine 100 mg tablet 100 mg PO TID nifedipine 60 mg tablet extended release 60 mg PO DAILY ferrous sulfate [Feosol] 325 mg (65 mg iron) tablet 325 mg PO DAILY cholecalciferol (vitamin D3) [Vitamin D3] 125 mcg (5,000 unit) tablet 125 mcg PO DAILY ezetimibe 10 mg tablet 10 mg PO DAILY Nexletol 180 mg tablet 180 mg PO DAILY levothyroxine 25 mcg tablet 25 mcg PO DAILY carvedilol 6.25 mg tablet 6.25 mg PO BID furosemide 20 mg tablet 20 mg PO DAILY Referrals / Follow Up: Alexandru Laughlin MD [Med Staff - Active Staff] - Within 2 Weeks Dallas Reed MD [Primary Care Provider] - Within 1 Week Disposition Disposition (needs filled in before D/C Order can be placed): Home, Self Care Charges/Coding Visit Charges Inpatient E&M: 34450 Disch Hosp >30min
== END 2025-05-22 18:04 | disposition home or self-care (01) | DRG 280 ==
LOC: ED 03:43 → ICU 03:52
PROVIDERS: Internal Medicine Interventional Cardiology; Admitting Provider Internal Medicine; Emergency Provider Emergency Medicine; PCP Internal Medicine; Visit Provider Student in an Organized Health Care Education/Training Program
DX: I21.4 Non-ST elevation (NSTEMI) myocardial infarction (principal); I50.31 Acute diastolic (congestive) heart failure; T82.330A Leakage of aortic (bifurcation) graft (replacement), initial encounter; I13.0 Hypertensive heart and chronic kidney disease with heart failure and stage 1 through stage 4 chronic kidney disease, or unspecified chronic kidney disease; I48.92 Unspecified atrial flutter; N17.9 Acute kidney failure, unspecified; N18.31 Chronic kidney disease, stage 3a; E03.9 Hypothyroidism, unspecified; I71.43 Infrarenal abdominal aortic aneurysm, without rupture; I65.21 Occlusion and stenosis of right carotid artery; D50.9 Iron deficiency anemia, unspecified; E78.5 Hyperlipidemia, unspecified; I48.91 Unspecified atrial fibrillation; I24.89 Other forms of acute ischemic heart disease; M19.90 Unspecified osteoarthritis, unspecified site; Z79.899 Other long term (current) drug therapy; Z87.891 Personal history of nicotine dependence; Z79.890 Hormone replacement therapy; Z86.73 Personal history of transient ischemic attack (TIA), and cerebral infarction without residual deficits; N40.0 Benign prostatic hyperplasia without lower urinary tract symptoms; Z90.49 Acquired absence of other specified parts of digestive tract; Z96.652 Presence of left artificial knee joint; Z96.649 Presence of unspecified artificial hip joint; R94.6 Abnormal results of thyroid function studies; R00.0 Tachycardia, unspecified
CPT/HCPCS: 71045; 78452; 80048; 80053; 80061; 81001; 83735; 83880; 84100; 84439; 84443; 84481; 84484; 85025; 85610; 85730; 93005; 93017; 93306; 94668; 94762; 97162; 99285; A9500; P9047; A4216; J1938; J2785

== ENCOUNTER → 2025-06-05 | Outpatient (CLI) | payer MEDICARE, OTHER, SELFPAY ==
[2025-06-05 10:43] LABS: Hematocrit 31.2 % (40-54); Hemoglobin 10.5 g/dL (13.0-16.5); Immature Granulocytes Count 0.010 X10^3/uL (0.0-0.0); Mean Corp Hgb Conc 33.7 g/dL (32-36); Mean Corpuscular Volume 90.7 fL (80-94); Mean Platelet Vol. 11.5 fl (6.2-12.0); NRBC Flagged by Analyzer 0 % (0-5); Platelet Count 110 K/mm3 (150-450); RBC Distribution Width CV 15.3 % (11.6-14.6); RBC Distribution Width SD 50.7 fl (35.1-43.9); Red Blood Count 3.44 M/mm3 (4.6-6.2); White Blood Count 4.5 K/mm3 (4.4-11.0)
[2025-06-05 11:34] LABS: Anion Gap 12 (5-15); BUN 40 mg/dL (4-19); BUN/Creat Ratio 23.6 RATIO (10-20); Calcium,Total 9.4 mg/dL (7.6-11.0); Carbon Dioxide 24.3 mmol/L (21.0-32.0); Chloride 106 mmol/L (98-108); Glucose 110 mg/dL (70-99); Potassium 4.5 mmol/L (3.3-5.1)
== END | disposition home or self-care (01) ==
LOC: LAB 10:05
PROVIDERS: PCP Internal Medicine; Referring Provider Nurse Practitioner Family; Visit Provider Nurse Practitioner Family
DX: R94.39 Abnormal result of other cardiovascular function study (principal); I50.30 Unspecified diastolic (congestive) heart failure; I72.3 Aneurysm of iliac artery; I65.29 Occlusion and stenosis of unspecified carotid artery; R53.83 Other fatigue
CPT/HCPCS: 36415; 80048; 84439; 84443; 85025

== ENCOUNTER 2025-06-23 18:31 | Inpatient (IN) | payer MEDICARE, OTHER, SELFPAY ==
[2025-06-23] VITALS (10 sets, daily range): BP systolic 140–157; BP diastolic 74–105; PULSE 44–110; RESP 16–27; TEMP 36.1–36.6; O2SAT 93–99; BMI 20.9; BMI 19.4
--- NOTE | 2025-06-23 18:44 | EKG12_ITS ---
Test Reason : DYSRHYTHMIA Blood Pressure : */* mmHG Vent. Rate : 91 BPM Atrial Rate : 91 BPM P-R Int : 170 ms QRS Dur : 88 ms QT Int : 414 ms P-R-T Axes : 49 65 40 degrees QTcB Int : 509 ms Normal sinus rhythm Left ventricular hypertrophy with repolarization abnormality ( Sokolow-Lindsay , Romhilt-Noguera ) Prolonged QT Abnormal ECG Confirmed by AMADOU COLON MD ([id number]), editor department TORIE MUKHERJEE ([id number]) on 06/25/2025 8:33:39 AM Referred By: SHAJI Confirmed By: AMADOU COLON MD
--- NOTE | 2025-06-23 18:56 | ED.VIS.CHEST ---
HPI History of Present Illness Chief Complaint: Palpitations Informant: patient and spouse/S.O. Onset/Context/Timing Onset: Today and Yesterday Timing: Intermittent Quality: Positive for Aching Current Severity: Gone Maximum Severity: Mild Worsened By: Nothing Relieved By: Nothing Narrative Narrative: 85-year-old male history of prior TIA, CT, CHF and anemia. Has an upcoming heart cath. States last night and today he had intermittent episodes of heart palpitations. He did have some mild discomfort with it. Currently he is pain-free and symptom-free. He is on aspirin but no other blood thinners. He denies any history of DVT or PE. No pleuritic pain. No hemoptysis. No leg pain or swelling. Prior Similar Symptoms: Yes Recent Illness/Hospitalization: Yes CVD Risk Factors: Negative for Diabetes PE Risk Factors: Negative for Recent Travel/Surgery, Recent Immobilization, Prior DVT or PE or Cancer TAD Risk Factors: Negative for Marfan's Syndrome [facility] Medical History Elevated TSH DALTON (acute kidney injury) Acute exacerbation of chronic heart failure Non-ST elevation CT (NSTEMI) New onset atrial flutter Type II endoleak of aortic graft Chronic renal failure, stage 3 (moderate) Spigelian hernia Wears hearing aid Wears glasses History of steroid therapy Arthritis History of renal disease TIA (transient ischemic attack) Ataxia History of echocardiogram Easy bruising History of IBS Former smoker History of stress test Cardiology follow-up encounter History of irregular heartbeat Preop cardiovascular exam Stenosis of right internal carotid artery Abdominal aortic 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 Essential hypertension Lumbar disc disease 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 Hyperlipidemia Diverticulosis Pre-operative cardiovascular examination Anemia 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, NYHA class 2 RSV (respiratory syncytial virus pneumonia) Shortness of breath Cough productive of purulent sputum Home Medications ?Medication ?Instructions ?Recorded ?Last Taken ?Type multivitamin 1 tab PO DAILY supplement 05/18/19 05/21/24 History ascorbic acid (vitamin C) 500 mg 1,000 mg PO DAILY supplement 02/14/20 05/23/24 History capsule doxazosin 8 mg tablet 8 mg PO QHS prostate 05/23/24 01/10/25 History hydralazine 100 mg tablet 100 mg PO TID blood pressure 05/23/24 02/14/25 History magnesium oxide 400 mg (241.3 mg 400 mg PO DAILY supplement 05/23/24 05/21/24 History magnesium) tablet bempedoic acid 180 mg tablet 180 mg PO DAILY 07/11/24 01/12/25 History (Nexletol) ezetimibe 10 mg tablet 10 mg PO DAILY 07/11/24 02/14/25 History levothyroxine 25 mcg tablet 25 mcg PO DAILY 11/28/24 02/14/25 History cholecalciferol (vitamin D3) 125 125 mcg PO DAILY vitamin 01/12/25 Unknown History mcg (5,000 unit) tablet (Vitamin D3) ferrous sulfate 325 mg (65 mg 325 mg PO DAILY iron replacement 01/12/25 01/12/25 History iron) tablet (Feosol) nifedipine 60 mg tablet,extended 60 mg PO DAILY blood pressure 01/12/25 02/14/25 History release carvedilol 6.25 mg tablet 6.25 mg PO BID 05/21/25 Unknown History furosemide 20 mg tablet 20 mg PO DAILY 05/21/25 Unknown History losartan 50 mg tablet 50 mg PO QDAY 06/05/25 Unknown History aspirin 81 mg chewable tablet 81 mg PO ONCE #90 tabs 06/07/25 Unknown Rx Allergy/AdvReac Type Severity Reaction Status Date / Time lisinopril Allergy Intermediate Rash Verified 06/23/25 18:32 atorvastatin calcium (From Allergy Other Verified 06/23/25 18:32 Lipitor) clonidine Allergy Unknown Verified 06/23/25 18:32 rosuvastatin calcium (From Allergy Other Verified 06/23/25 18:32 Crestor) Ervjrnh-NJH-RrM Reductase Allergy Other Verified 06/23/25 18:32 Inhibitor (Lekotsp-Pyf-Kda Reductase Inhibitor) Family History Father Lung cancer Liver cancer Mother Oral cancer Surgical History S/P spigelian hernia repair, follow-up exam S/P AAA repair (~02/2025) History of right-sided carotid endarterectomy Hx of cataract surgery Hx of appendectomy History of tonsillectomy History of back surgery History of colonoscopy History of blepharoplasty History of inguinal hernia repair History of umbilical hernia repair 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 Social History household members: spouse Smoking Status: Former smoker second hand exposure: No alcohol intake: never substance use type: does not use caffeine: Yes Type: coffee Number of servings: 2 ROS ROS ED ROS Narrative Denies recent illness. Palpitations. Constitutional Constitutional ED: Denies chills or fever(s) Eyes Eyes: Reports none ENT ENT ED: Denies ear pain Cardiovascular Cardiovascular: Reports as per HPI, chest pain and palpitations Respiratory/Chest Respiratory/Chest: Denies cough or dyspnea Gastrointestinal Gastrointestinal: Denies abdominal pain, diarrhea, nausea or vomiting Genitourinary Genitourinary ED: Denies dysuria or hematuria Musculoskeletal Musculoskeletal: Denies arthralgias or back pain Integumentary Denies abscess Neurologic Neurologic: Denies headache(s) Psychiatric Psychiatric: Denies anxiety Endocrine Endocrinology: Denies cold intolerance Hematologic/Lymphatic Hematologic/Lymphatic: Denies easy bleeding Allergic/Immunologic Allergic/Immunologic ED: Denies mouth swelling, tongue swelling or urticaria EXAM Physical Exam Narrative Exam Narrative: Well-appearing 85-year-old male. Vital signs are stable afebrile. His pulse in triage was 44 currently it is in the 80s. He does not look septic toxic is no distress. His is at bedside. H EENT exam pupils round react light. Moist mutes membranes. Neck nontender JVD. Lungs clear to auscultation bilaterally. Heart regular rhythm rate about 90 no murmur. Chest wall and ribs nontender. Abdomen soft nontender. Moving all 4 extremities. Strong radial pulses. Equal symmetrical. 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 Calves nontender no cords no edema. Neurologically he is awake and alert. Answering questions following commands. No focal motor deficits. Back nontender. Const Vital Signs: 06/23/25 18:32 06/23/25 18:35 06/23/25 19:13 Temperature 97 F L Temperature Source Temporal Pulse Rate 44 L 86 Respiratory Rate 16 Respiratory Effort Blood Pressure 140/105 H 143/98 H Blood Pressure Mean 116 113 Pulse Ox 99 95 Oxygen Delivery Method Room Air Room Air Room Air 06/23/25 19:15 06/23/25 19:35 06/23/25 20:00 Temperature Temperature Source Pulse Rate 89 87 Respiratory Rate 19 H 25 H Respiratory Effort Normal Non-Labored Blood Pressure 141/91 H 148/74 H Blood Pressure Mean 107 98 Pulse Ox 94 94 Oxygen Delivery Method Room Air Room Air Heart Score History: Slightly/Non-Suspicious ECG: Normal Age: >/= 65 years Risk Factors: >/= 3 Risk Factors or History of CAD Troponin: </= Normal Limit Score: 4 MDM MDM MDM Narrative Medical decision making narrative: 85-year-old male with palpitations. Undergo cardiac workup. He does have a history of hypothyroidism and TSH also be checked. He was reportedly on thyroid medication. Repeat exam patient is doing well at 8:55 PM. We went over his test results. Concern for non-ST elevation CT. Currently he is completely pain-free. He did have significant chest pain last night. I have the hospitalist on page for admission. Patient will be started on a heparin bolus and drip. History & Record Review Discussion w/independent historian: Patient and Family Additional record(s) reviewed:: Prior inpatient record, Prior outpatient record, Prior ED visit and Prior labs Lab Data Attestation: I reviewed the patient's lab results. Lab results narrative: CBC shows a white count of 5 H&H 10.4 and 30. Platelets 100. Consistent with prior. Chemistries show a gap of 13. BUN and creatinine of 45 and 1.58 consistent with his renal insufficiency. Glucose 90. Troponin is elevated at 948. Concern for non-ST elevation CT. TSH is 5.6. Chest x-ray chronic changes. Labs: Laboratory Results - last 24 hr 06/23/25 19:25 WBC 5.8 RBC 3.43 L Hgb 10.4 L Hct 30.7 L MCV 89.5 MCH 30.3 MCHC 33.9 RDW Std Deviation 49.8 H RDW Coeff of Erma 15.2 H Plt Count 100 L MPV 10.5 Immature Gran % (Auto) 0.300 Neut % (Auto) 76.2 H Lymph % (Auto) 12.8 L [place] % (Auto) 8.0 Eos % (Auto) 2.2 Baso % (Auto) 0.5 Absolute Neuts (auto) 4.4 Absolute Lymphs (auto) 0.74 L Nucleated RBC % 0 Sodium 139 Potassium 4.0 Chloride 105 Carbon Dioxide 21.2 Anion Gap 13 BUN 45 H Creatinine 1.58 H Estim Creat Clear Calc 30.26 L Est GFR (MDRD) Non-Af 43 L BUN/Creatinine Ratio 28.2 H Glucose 90 Calcium 9.4 Troponin T High Sens 948 H* D TSH 5.640 H Radiography Chest X-Ray - ED: 1 View, Read by ED Physician, Lungs, Mediastinum, Bony Structures, No Acute Disease and Chronic Changes Diagnostic Testing: Chest x-ray, portable, single view shows borderline cardiomegaly. With chronic changes. No effusions. Interpreted by myself. Rhythm Strip Rhythm Strip: Sinus Rhythm Rate: 91 Ectopy: None EKG Initial EKG: Attestation: I personally reviewed and interpreted this EKG as follows: Interpretation: Sinus Rhythm and No Acute Injury Pattern Comments: Normal sinus rhythm rate of [address] of [address] or ischemia. LVH. Prior EKG tracings: available for review Prior: Unchanged Discharge Plan Dx/Rx/DC Orders Clinical Impression: Chest pain, Non-ST elevated myocardial infarction, Chronic anemia, Chronic kidney disease Disposition Disposition: Acute Care Hospital [facility]
--- OUTSIDE RECORDS SUMMARY | 2025-06-23 19:36 | XMS RPT_ITS | CCD ---
Author Organization [facility] Care Team Providers Care Foster Care Social Worker Name Role Phone SIMON MOODY Unavailable Unavailable [...] Provider Dr. Dallas Reed Referring Provider Dr. Omdi Perez Admit Provider Cebul, Dr. Omid Palomino Other Provider Dr. Dieter Christianson Other Provider Denver MENJIVAR, Fide Durán Unavailable Suyapa Reed, Dr. Haynes Primary Care Provider Chris, Dr. Omdi Palomino Attending Provider Dr. Donato Longoria Attending Provider Chris, Dr. Omid Palomino Referring Provider Maxime, Dr. Haynes Primary Care Provider Maxime, Dr. Haynes Referring Provider Chris, Dr. Omid Palomino Attending Provider Chris, Dr. 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 Chan Referring Provider [phone] Waldo LAWTON, Dr. Chan Other Provider [phone] Dallas Reed Primary Care Provider ANA BOBO Attending Unavailable ANA BOBO Referring Unavailable DALLAS REED Primary Care Unavailable Christopher RN, Adriane Unavailable Unavailable Maxime LAWTON, Dr. Haynes Primary Care Provider Maxime LAWOTN, Dr. Haynes Primary Care Provider Waldo LAWTON, Dr. Chan Attending Provider [phone] Maxime LAWTON, Dr. Haynes Referring Provider Roof ACID PURIFIER-C, Mike H Attending Provider Maxime LAWTON, Dr. Haynes Primary Care Provider Roof ACID PURIFIER-C, Mike H Referring Provider Maxime LAWTON, Dr. Haynes Primary Care Provider Real PEREZ, Carine Attending Provider [phone] Omar WAHL, Dr. Curiel Emergency Provider de Bandar WAHL, Dr. Barnes Admit Provider Unavail able de Bandar WAHL, Dr. Barnes Attending Provider Unav ailable Omar WAHL, Dr. Curiel Emergency Provider de Bandar WAHL, Dr. Barnes Admit Provider Unavail able Dr. Cameron Solares DO Other Provider Unavail able Siri LAWTON, Dr. Diaz Other Provider Unavailable Jameel LAWTON, Dr. Philip Other Provider Unavailable Tasha LAWTON, Dr. Rod Other Provider Unavailable Ryder LAWTON, Dr. Padilla Other Provider Josef LAWTON, Dr. Grissom Other Provider Dallin LAWTON, Dr. Tse Other Provider Ami LAWTON, Dr. Schafer Other Provider Unavailable Von LAWTON, Dr. Sewell Other Provider Cali WAHL, Dr. Cameron Meyers Other Provider July LAWTON, Dr. Peters Other Provider Qian LAWTON, Dr. Horvath Other Provider Karolina LAWTON, Dr. Loco Other Provider Jenaro LAWTON, Dr. Tello Other Provider Unavailable Steve LAWTON, Dr. Oneal Other Provider Muna LAWTON, Dr. Menon Other Provider Pierre ACID PURIFIER-C, Mike Tadeo Other Provider Kylah Ramirez Other Provider Jeremy Pacheco Other Provider Carmen LAWTON, Dr. Olamide White Attending Provider Odilon LAWTON, Dr. Monsalve Other Provider July LAWTON, Dr. Peters Attending Provider Carmen LAWTON, Dr. Olamide White Other Provider Qian LAWTON, Dr. Horvath Attending Provider Agustín MENJIVAR, Francisco Unavailable Unavailable RAMON LEE Attending Unavailable REED, JOCELIN Primary Care Unavailable REED, JOCELIN Referring Unavailable SAIRA, DARYA M Attending Unavailable REED, JOCELIN Primary Care Unavailable SAIRA, DARYA M Referring Unavailable REED, JOCELIN Primary Care Unavailable SAIRA, DARYA M Attending Unavailable REED, JOCELIN Primary Care Unavailable REED, JOCELIN Primary Care Unavailable REED, JOCELIN Referring Unavailable RAMON LEE Attending Unavailable FATOU RANDOLPH Admitting Unavailable REED, JOCELIN Primary Care Unavailable GAVIN GRAY Referring Unavailable YASMEEN DAWN Attending Unavailable REED, JOCELIN Primary Care Unavailable REED, JOCELIN Referring Unavailable RAMON LEE Attending Unavailable REED, JOCELIN Referring Unavailable REED, DALLAS Tadeo Primary Care Unavailable RAMON LEE Attending Unavailable RAMON LEE Attending Unavailable REED, JOCELIN Referring Unavailable REED, JOCELIN Primary Care Unavailable SAIRADARYA Referring Unavailable REED, JOCELIN Primary Care Unavailable REED, DALLAS Tadeo Attending Unavailable REED, DALLAS Tadeo Primary Care Unavailable SAIRADARYA GOODEN Attending Unavailable REED, DALLAS Tadeo Primary Care Unavailable SAIRA, DARYA Durán Referring Unavailable REED, DALLAS Tadeo Primary Care Unavailable REED, DALLAS Tadeo Primary Care Unavailable REED, DALLAS Tadeo Attending Unavailable REED, DALLAS Tadeo Primary Care Unavailable BRIAN RIVERA Referring Unavailable REED, JOCELIN Primary Care Unavailable SAIRA, DARYA Durán Attending Unavailable REED, DALLAS Tadeo Primary Care Unavailable SAIRA, DARYA Durán Referring Unavailable REED, DALLAS Tadeo Primary Care Unavailable SAIRA, DARYA Durán Referring Unavailable REED, DALLAS Tadeo Primary Care Unavailable SAIRA, DARYA Durán Referring Unavailable REED, DALLAS Tadeo Primary Care Unavailable RAMON LEE Attending Unavailable REED, DALLAS Tadeo Referring Unavailable REED, DALLAS Tadeo Primary Care Unavailable RAMON LEE Attending Unavailable REED, DALLAS Tadeo Referring Unavailable REED, DALLAS Tadeo Primary Care Unavailable RAMON LEE Attending Unavailable REED, DALLAS Tadeo Primary Care Unavailable REED, JOCELIN Referring Unavailable REED, DALLAS Tadeo Attending Unavailable REED, DALLAS Tadeo Referring Unavailable REED, DALLAS Tadeo Primary Care Unavailable REED, DALLAS Tadeo Referring Unavailable REED, DALLAS Tadeo Primary Care Unavailable SAIRA, DARYA Durán Attending Unavailable REED, DALLAS Tdaeo Primary Care Unavailable REED, DALLAS Tadeo Primary Care Unavailable REED, DALLAS Tadeo Attending Unavailable REED, DALLAS Tadeo Primary Care Unavailable SELF Referring Unavailable Maxime LAWTON, Dr. Haynes Primary Care Physician Carine Lopez Attending Physician Dr. Dustin Hawk MD Attending Physician [phone] Dr. Dustin Hawk MD Referring Provider Pierre ACID PURIFIER-C, Mike Tadeo Attending Physician Dr. Veena Nelson DO Emergency Department Physi adela Solares DO, Dr. Barnes Admitting Physician Corry vailable Solares DO, Dr. Barnes Nurse Practitioner Unav ailable Siri LAWTON, Dr. Diaz Nurse Practitioner Unavailabl villa Jorgensen MD, Dr. Philip Nurse Practitioner Unavailab cristin Cordova MD, Dr. Rod Nurse Practitioner Unavailab cristin Soler MD, Dr. Padilla Nurse Practitioner Josef LAWTON, Dr. Grissom Nurse Practitioner Dallin LAWTON, Dr. Tse Nurse Practitioner Ami LAWTON, Dr. Schafer Nurse Practitioner Unavaila galilea Longoria MD, Dr. Sewell Nurse Practitioner Cali WAHL, Dr. Cameron Meyers Nurse Practitioner July LAWTON, Dr. Peters Nurse Practitioner Qian LAWTON, Dr. Horvath Nurse Practitioner Karolina LAWTON, Dr. Loco Nurse Practitioner Jenaro LAWTON, Dr. Tello Nurse Practitioner Unavailab cristin Wilson MD, Dr. Oneal Nurse Practitioner Muna LAWTON, Dr. Menon Nurse Practitioner Pierre RICHEY-C, Mike Tadeo Nurse Practitioner Kylah Ramirez Nurse Practitioner Jeremy Pacheco Nurse Practitioner Carmen LAWTON, Dr. Olamide White Attending Physician Odilon LAWTON, Dr. Monsalve Nurse Practitioner July LAWTON, Dr. Peters Attending Physician Carmen LAWTON, Dr. Olamide White Nurse Practitioner Qian LAWTON, Dr. Horvath Attending Physician Lorraine Mcdowell Attending Unavailable Reed, Dallas Primary Care Unavailable Cameron Solares Admitting Unavailable Amro, Ahmed Consulting Unavailable Jabri, Ahmad Consulting Unavailable Karbrandy, Adham Consulting Unavailable Randy Soler Consulting Unavailable Josef, Jaciel Consulting Unavailable Dedrick Zamarripa Consulting Unavailable Gilmar Mueller Consulting Unavailable Donato Longoria Consulting Unavailable Cameron Leiva Consulting Unavailable Lorraine Mcdowell Consulting Unavailable Alexandru Laughlin Consulting Unavailable Beronica Turcios Consulting Unavailabl e Azouz, Samer Consulting Unavailable Satmarlo Jm Consulting Unavailable [place], Sinan Consulting Unavailable Roof ACID PURIFIER, Mike Tadeo Consulting Unavailable Kylah Arias Consulting UnavailJohn Castilloyler Consulting Unavailable Cameron Solares Consulting Unavailable Olamide Morales Consulting Unavailable Robotham, Lara Attending Unavailable Robotham, Lara Consulting Unavailable Robotham, Lara Referring Unavailable Reed, Dallas Primary Care Unavailable Roof ACID PURIFIER, Mike Tadeo Attending Unavailable Reed, Dallas Primary Care Unavailable Reed, Dallas Referring Unavailable Reed, Dallas Referring Unavailable Reed, Dallas Primary Care Unavailable Noble, Carine Attending Unavailable Reed, Dallas Primary Care Unavailable King, Hernandez Attending Unavailable Noble, Carine Referring Unavailable Noble, Carine Attending Unavailable Reed, Dallas Primary Care Unavailable Waldo, Dustin Attending Unavailable Reed, Dallas Primary Care Unavailable Harrold, Dustin Referring Unavailable Alexandru Laughlin Attending Unavailable Gricel Donald Consulting Unavailable Koram, Olamide Cindy Attending Unavailable Reed, Dallas Referring Unavailable Reed, Dallas Primary Care Unavailable Harrold, Dustin Attending Unavailable Noble, Carine Attending Unavailable Reed, Dallas Referring Unavailable Reed, Dallas Primary Care Unavailable Roof ACID PURIFIER, Mike Tadeo Attending Unavailable Reed, Dallas Primary Care Unavailable Roof ACID PURIFIER, Mike Tadeo Referring Unavailable Reed, Dallas Primary Care Unavailable Nate Gray Attending Unavailable Reed, Dallas Primary Care Unavailable Waldo, Dustin Referring Unavailable Harrold, Dustin Attending Unavailable Roof ACID PURIFIER, Mike H Referring Unavailable Roof ACID PURIFIER, Mike Tadeo Attending Unavailable Reed, Dallas Primary Care Unavailable Koram, Olamide Cindy Attending Unavailable Reed, Dallas Primary Care Unavailable Amro, Ahmed Consulting Unavailable Cameron Solares Admitting Unavailable Jabrbrice, Ahmapraveen Consulting Unavailable Karim, Adham Consulting Unavailable Ryder, Randy Consulting Unavailable Josef, Jaciel Consulting Unavailable Dedrick Zamarripa Consulting Unavailable Gilmar Mueller Consulting Unavailable Von, Donato Consulting Unavailable Cameron Leiva Consulting Unavailable Lorraine Mcdowell Consulting Unavailable Alexandru Laughlin Consulting Unavailable Beronica Turcios Consulting Unavailabl e Azouz, Sameheather Consulting Unavailable SatElsa sellersJm Consulting Unavailable [place], Sinan Consulting Unavailable Roof ACID PURIFIER, Mike Tadeo Consulting Unavailable Kylah Arias Consulting Unavailдмитрий e Demiter, Jeremy Consulting Unavailable Cameron Solares Consulting Unavailable OdilonRobyn woodys Consulting Unavailable Robotham, Lara Attending Unavailable Reed, Dallas Primary Care Unavailable Robotham, Lara Referring Unavailable Robotham, Lara Attending Unavailable Reed, Dallas Primary Care Unavailable Reed, Dallas Referring Unavailable Roof ACID PURIFIER, Mike Tadeo Attending Unavailable Reed, Dallas Referring Unavailable Reed, Dallas Primary Care Unavailable Von, Donato Referring Unavailable Von, [place] Attending Unavailable Reed, Dallas Primary Care Unavailable Reed, Dallas Primary Care Unavailable Veena Nelson Attending Unavailable Robotham, Lara Attending Unavailable Reed, Dallas Primary Care Unavailable Reed, Dallas Referring Unavailable Harrold, Dustin Attending Unavailable Reed, Dallas Primary Care Unavailable Reed, Dallas Referring Unavailable Robotham, Lara Referring Unavailable Robotham, Lara Attending Unavailable Robotham, Lara Consulting Unavailable Reed, Dallas Primary Care Unavailable Harrold, Dustin Attending Unavailable Reed, Dallas Primary Care Unavailable Harrold, Dustin Referring Unavailable Waldo, Dustin Consulting Unavailable Cameron Solares Attending Unavailable Allergies Allergy Classification Reported Allergen(s) Allergy Type Date of Onset Reaction(s) Facility (20 sources) atorvastatin; Translations: [ATORVASTATIN CALCIUM] Drug Allergy 5 Other [facility] Repository Comment on above: muscle pain (20 sources) cloNIDine; Translations: [CLONIDINE] Drug Allergy 5 Unknown [facility] Repository (20 sources) Hmg-Coa Reductase Inhibitors (Statins); Translations: [NCSEAEM-EBX-KJS REDUCTASE INHIBITORS] Propensity to adverse reactions (disorder) 6 [facility] Repository (20 sources) lisinopril; Translations: [LISINOPRIL] Drug Allergy 7 Rash [facility] Repository (20 sources) rosuvastatin; Translations: [ROSUVASTATIN CALCIUM] Drug Allergy 5 Other [facility] Repository Comment on above: muscle pain (1 source) atorvastatin Drug Allergy 9 [place], [place] (19 sources) Hmg-Coa Reductase Inhibitors (Statins) Propensity to adverse reactions to drug 9 Other [place], [place] Comment on above: MUSCLE VERY SORE (1 source) rosuvastatin Drug Allergy 9 [place], [place] (2 sources) Aqrzjqi-Pmf-Gtf Reductase Inhibitor; Translations: [Kgoltxw-Rqg-Bpu Reductase Inhibitor] Allergy to substance 2 Other [facility] Repository (20 sources) NIFEdipine; Translations: [NIFEDIPINE] Drug Allergy 5 Swelling [facility] Work Phone: (4 sources) HMG-CoA reductase inhibitor Propensity to adverse reactions 5 [facility] Medications Current Medications Medication Drug Class(es) Dates [...] Active Start: 02-14-2020 take 4 capsules by out once daily Ascorbic Acid (Vitamin C) 500 mg capsule Active 2000 mg PO DAILY February 14, 2020 11:07am Start: 02-14-2020 take 2000 mg by mouth once logan ly Ascorbic Acid (Vitamin C) Active 2000 MG PO DAILY February 14, 2020 11:07am Start: 02-14-2020 take 4000 mg by mouth once logna ly Ascorbic Acid (Vitamin C) Active 4000 MG PO DAILY February 14, 2020 11:07am Start: 05-17-2019 End: 02-14-2020 take 2 capsules by mouth once daily Start: 05-17-2019 End: 02-14-2020 take 1000 mg [...] Platelet Aggregation Inhibitor, Nonsteroidal Anti-inflammatory Drug Start: 06-07-2025 take 1 tablet by mouth once Start: 06-07-2024 take 1 tablet by wendy th once daily aspirin 81 mg chewable tablet Indications: TIA (transient ischemic attack) Take 1 tablet by mouth once daily. 06/07/2024 Active Start: 05-24-2024 End: 04-18-2025 take 1 drop(s) by mouth at breakfast Aspirin 81 mg Tablet,Chewable Discontinued 81 mg PO WITH BREAKFAST May 24, 2024 12:00am April 18, 2025 [...] take 1 tablet by mouth once daily carvedilol 6.25 mg oral tablet (20 sources) alpha-Adrenergic Adrienne, beta-Adrenergic Adrienne Start: 05-18-2025 take 1 tablet by mouth twice daily Start: 05-14-2020 End: 05-21-2025 take 1 tablet [...] Take 1 tablet by wendy twice daily with meals. cholecalciferol 0.125 mg ora l tablet (20 sources) Vitamin D Start: 01-12-2025 take 1 tablet by mouth once daily Start: 05-18-2019 End: 01-12-2025 take 1 capsule by mouth once daily Cholecalciferol (Vitamin D3) 2,000 unit capsule Discontinued 2000 U PO DAILY May 18, 2019 12:00am January 12, 2025 11:01am supplement take 1 capsule by mo uth once daily Cholecalciferol, Vitamin D3, 25 mcg (1,000 unit) cap Take 5,000 Units by mouth once daily. Active Cholecalciferol, Vitamin D3, (VITAMIN D) 1,000 unit cap Take 5,000 Units by mouth once daily. 0 Active Comment on above: Take 5,000 Units by mouth once daily. Coenzyme Q10 (COQ10 PO) (1 source) Coenzyme Q10 (COQ10 PO) Take by mouth 0 Active doxazosin 8 mg oral tablet (20 sources) alpha-Adrenergic Adrienne Start: 07-15-2022 End: 02-15-2025 take 1 tablet by mouth at bedtime Start: 03-27-2021 take 3 tablets by mo ut once daily at bedtime doxazosin (CARDURA) 4 [...] daily at bedtime. [facility] ezetimibe 10 mg oral tablet (20 sources) Dietary Cholesterol Absorption Inhibitor Start: 09-08-2023 End: 02-15-2025 take 1 tablet by mouth once daily Comment on above: Take 1 tablet by wendy th once daily. ferrous sulfate 325 mg oral tablet (20 sources) Start: 01-12-2025 take 1 tablet by mouth once daily End: 09-07-2024 take 1 tablet by mouth once daily ferrous sulfate (FEOSOL) 325 mg (65 mg iron) tablet Take 325 mg by mouth once daily. 09/07/2024 Discontinued (Course of therapy completed) furosemide 20 mg oral tablet (20 sources) Loop Diuretic Start: 05-21-2025 take 1 tablet by wendy th once daily Start: 05-10-2025 End: 05-21-2025 take 1 tablet by mouth once daily as needed Furosemide (Lasix) 40 mg tablet Discontinued 40 mg PO DAILY as needed for SOB 14 0 May 10, 2025 12:00am May 21, 2025 1:26pm 40mg PO daily x 3 days followed [...] daily. Active take 1 capsule by mo ut once daily Garlic 1,000 mg cap Take 1 capsule by mouth once daily. 0 Active GARLIC PO Take b y mouth 0 Active Comment on above: Take 1 capsule by mo [facility] once daily. glucosamine/chondr rich A sod (OSTEO [...] Comment on above: Take 2 tablets by [facility] once daily. hydrALAZINE hydrochloride 100 mg oral tablet (20 sources) Arteriolar Vasodilator Start: 09-24-2023 End: 12-11-2024 take 1 tablet by mouth three times daily Start: 03-04-2023 [facility] times daily hydrALAZINE (APRESOLINE) 100 mg [...] 1 tablet by mouth once daily losartan potassium 50 mg oral tablet (20 sources) Angiotensin 2 Receptor Adrienne Start: 06-05-20 take 1 tablet by mouth once daily Start: 05-24-2025 take 1 tablet by wendy th once daily losartan (COZAAR) 50 mg tablet Indications: Essential hypertension Take 1 tablet by mouth once daily. 90 tablet 1 05/24/2025 Active Start: 05-17-2019 End: 06-05-2025 take 1 tablet by mouth once daily Losartan 100 mg tablet Discontinued 100 mg PO DAILY May 17, 2019 12:00am June 05, 2025 8:54am BP Comment on above: Take 1 tablet by wendy th once daily. Magnesium (20 sources) Start: 05-17-2019 take 400 mg by mouth once daily [...] daily. magnesium oxide 400 mg oral tablet (12 sources) Start: 05-23-2024 take 1 tablet by mouth once daily Misc Natural Products (GLUCOSAMINE CHOND COMPLEX/MSM PO) [...] DAILY May 18, 2019 12:00am Multivitamin tablet (12 sources) Start: 05-18-2019 Start: 05-18-2019 Multivitamin t ablet Active 1 [...] NIFEdipine 60 mg extended release oral tablet (16 sources) Dihydropyridine Calcium Channel Adrienne Start: 01-12-2025 take 1 tablet by mouth once daily Start: 12-02-2024 End: 12-02-2024 take 1 tablet by mouth once daily NIFEdipine ER (PROCARDIA XL) 60 mg 24 hr tablet Take 1 tablet by mouth once daily. Patient should start on December 02, 2024. 90 tablet 12/02/2024 12/02/2024 Discontinued (Side Effects) [place]-3 Fatty Acids (FISH OI L PO) (1 source) [place]-3 Fatty Ac ids (FISH OIL PO) Take by mouth 0 Active predniSONE 10 mg oral tablet (20 sources) Start: 03-11-2024 End: 03-20-2024 predniSONE (DELTASONE) [...] extract (20 sources) take 1 capsule by [facility] once daily TURMERIC ORAL Take 1 capsule [...] / oxyCODONE hydrochloride 5 mg oral tablet (19 sources) Opioid Agonist Start: 06-15-2019 End: 06-19-2019 [...] PO EVERY 6 HOURS NEEDED 12 June 15, 2019 June 19, 2019 12:09am [...] mg / clavulanate 125 mg oral tablet (11 sources) Penicillin-class Antibacterial Start: 01-12-2025 End: 04-18-2025 take 1 tablet by mouth every twelve hours Amoxicillin-Pot Clavulanate 875-125 mg tablet Discontinued 875 mg PO Q12H 20 January 12, 2025 12:00am April 18, 2025 4:29pm biotin 5 mg oral capsule (20 sources) Start: 07-24-2019 End: 11-12-2021 take 1 [...] Boswellia Roland Xt (Bulk) 10 GM powder (12 sources) Start: 07-26-2015 End: 05-17-2019 Boswellia Roland [...] Comment on above: Take 3 capsules by out once daily. cefTRIAXone (Rocephin) 1,000 mg [...] 1 mg / omega-3 acid ethyl esters (long-term) 500 mg / phytosterols 200 mg / pyridoxine hydrochloride 12.5 mg / vitamin b12 0.5 mg oral capsule (20 sources) Vitamin B12, Vitamin D Start: 07-26-2015 End: 01-10-2024 ie-5-bgq-[id number]-[id number]-FA-B -6-phy 500-1,000-500 mg-unit-mcg cap Take by mouth. 07/26/2015 01/10/2024 Discontinued (Discontinued by Patient) Start: 07-26-2015 End: 05-23-2024 take 1 capsule by mouth once daily [id number]-2-[id number] 1 EACH ca psule Discontinued 1 NMA PO DAILY July 26, 2015 1:00am May 23, 2024 8:01pm supplement On Hold: Resume on 04/21/23. Start: 07-26-2015 Xo-3-Cos-Epa-D [id number]-C-3-Gfq Active 1 EACH PO DAILY July 26, 2015 1:00am Comment on above: Take by mouth. chondroitin sulfates 200 mg / glucosamine hydrochloride 250 mg oral tablet (19 sources) Start: 019 End: 024 Glucosamine-Chondroi tin (Osteo Bi-Flex) 250-200 mg tablet [...] Comment on above: Take 1 tablet by [facility] twice daily. For cholesterol. COMPOUNDED PRESCRIPTION (20 sources) End: 01-10-20 24 take 1 capsule by mouth once daily COMPOUNDED PRESCRIPTION Take 1 capsule by mouth once daily. [place] Q Plus 01/10/2024 Discontinued (Discontinued by Patient) End: 01-10-2024 take 1 capsule by mouth once daily COMPOUNDED PRESCRIPTION Take 1 capsule by mouth once daily. [place] Q Plus 0 01/10/2024 Discontinued (Discontinued by Patient) take 1 capsule by [facility] once daily COMPOUNDED PRESCRIPTION Take 1 capsule by mouth once daily. [place] Q Plus 0 Active Comment on above: Take 1 capsule by [facility] once daily. [place] Q Plus diazePAM 2 mg oral tablet (19 sources) Benzodiazepine Start: 7 End: 8 take [...] 07-19-2019 End: 07-19-2019 fentaNYL (SUBLIMAZE) injecti on FishBora,Flax Oils-Om3,6,9no1 (7 sources) Start: 07-26-2015 End: 05-17-2019 [...] 2019 1:34pm Fish,Bora,Flax Oils-Om3,6,9no1 1,200 MG capsule (12 sources) Start: 07-26-2015 End: 05-17-2019 take 1 [...] (FLONASE) 50 mcg/actuation nasal spray Use 1 [place] in each nostril daily at bedtime. 1 Each 2 09/07/2024 Active gabapentin 300 mg oral capsule (19 sources) Anti-epileptic Agent Start: 01-08-2018 End: 05-17-2019 [...] 2019 1:35pm 0.5 ml heparin sodium, porcine 09287 unt/ml prefilled syringe (2 sources) Unfractionated Heparin, [...] bromide 0.021 mg/actuat metered dose nasal spray (19 sources) Anticholinergic Start: 01-08-2018 End: 05-17-2019 Ipratropium Baisden 0.03 % spray,non-aerosol Discontinued 2 NMA INTRANASAL 2 to 3 times per day as needed January 08, 2018 12:00am May 17, 2019 1:35pm Start: 01-08-2018 End: 05-17-2019 Ipratropium B[place]den Disconti nued 2 SPRAY INTRANASAL 2 to [...] guidelines link. ivermectin 3 mg oral tablet (20 sources) Antiparasitic, Pediculicide Start: End: 2 take [...] 19 prevention) ketoconazole 20 mg/ml topical cream (12 sources) Azole Antifungal Start: 05-23-2024 End: 07-07-2024 [...] % injection lisinopril 10 mg oral tablet (19 sources) Angiotensin Converting Enzyme Inhibitor Start: 10-13-2016 [...] 10-20 mcg/min and titrate per order parameters. [place]-3 1,050 mg, Fish Oil, 1,050-1,200 mg cap (10 sources) [place]-3 1,050 mg , Fish Oil, 1,050-1,200 mg [...] sources) Calcineurin Inhibitor Immunosuppressant Start: 2022 End: 04-22- 2024 pimecrolimus (ELIDEL) 1 % cream Apply to affected area twice daily. APPLY TO AFFECTED AREA 10/29/2022 01/10/2024 Discontinued (Discontinued by Patient) Comment on above: Apply to affected ar ea twice daily. APPLY TO AFFECTED AREA polyethylene glycol 3350 60615 mg powder for oral solution (12 sources) Osmotic Laxative Start: 2023 End: 2023 Polyethylene Glycol 3350 (Miralax) 17 gram/dose powder Discontinued 17 g PO DAILY 238 0 July 11, 2024 12:00am August 11, 2024 1:22pm polyethylene glycol 3350 [id number] mg / potassium chloride 2970 mg / sodium bicarbonate 6740 mg / sodium chloride 5860 mg / sodium sulfate 64872 mg powder for oral solution (1 source) [...] from your provider. Sodium Chloride 0.9 % (16 sources) Start: 2022 End: 2022 take 1 [...] infusion traMADol hydrochloride 50 mg oral tablet (12 sources) Opioid Agonist Start: 08-31-2024 End: 11-28-2024 [...] th once daily. Vitamin B Complex tablet (12 sources) Start: 01-08-2018 End: 05-17-2019 Vitamin B [...] Classification Problem Date Documented Da te Episodic/Chronic Acute and unspecified renal failure (9 sources) Acute renal failure syndrome; Translations: [Acute kidney failure, unspecified] Onset: 5 05-21-2025 Episodic Acute myocardial infarction (12 sources) Myocardial infarction; Translations: [Non-ST elevation (NSTEMI) myocardial infarction] Onset: 5 05-21-2025 Chronic Aortic; peripheral; and visceral artery aneurysms (20 sources) Abdominal aortic 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; Translations: [Abdominal aortic aneurysm, without rupture] Onset: 2 Resolved: 3 11-22-2018 Chronic Comment on above: 4.67 x 4.82 cm in di ameter as of January 19, 2023 Cardiac dysrhythmias (11 sources) Atrial flutter; Translations: [Unspecified atrial flutter] Onset: 5 05-21-2025 Chronic Chronic kidney disease (20 sources) Chronic kidney disease stage 3; Translations: [CKD (chronic kidney disease) stage 3, GFR 30-59 ml/min] Onset: 4 01-09-2015 Chronic Chronic kidney disease (3 sources) Chronic kidney disease; Translations: [Stage 3b chronic kidney disease (HCC)] Onset: 5 Chronic ulcer of skin (5 sources) Pressure ulcer of sacral region, stage 2; Translations: [Pressure ulcer, lower back] Onset: 5 05-24-2025 Chronic Coagulation and hemorrhagic disorders (20 sources) Thrombocytopenic disorder; Translations: [Thrombocytopenia, unspecified] Onset: 4 06-07-2024 Chronic Complication of device; implant or graft (1 source) Leakage of aortic (bifurcation) graft (replacement), initial encounter; Translations: [Leakage of aortic (bifurcation) graft (replacement), initial encounter] Onset: 5 Episodic Complications of surgical procedures or medical care (20 sources) Wound hematoma; Translations: [Postoperative wound hematoma] Onset: 5 01-20-2021 Episodic Conditions associated with dizziness or vertigo (1 source) Dizziness; Translations: [Dizziness and giddiness] 05-23-2024 Episodic Congestive heart failure; nonhypertensive (20 sources) [...] Onset: 5 Chronic Deficiency and other anemia (20 sources) Anemia; Translations: [Anemia, unspecified] 01-08-2021 Episodic Deficiency and other anemia (2 sources) Anemia, unspecified; Translations: [Anemia, unspecified type] Onset: Episodic Disorders of lipid metabolism (20 sources) [...] Chronic Hypertension with complications and secondary hypertension (20 sources) Hypertensive heart failure; Translations: [Hypertensive heart disease with heart failure] Onset: 5 01-08-2018 Chronic Malaise and fatigue (8 sources) Fatigue; Translations: [Other fatigue] Onset: 5 05-23-2024 Episodic Noninfectious gastroenteritis (20 sources) Collagenous colitis; Translations: [Collagenous colitis] Onset: 3 02-04-2023 Chronic Occlusion or stenosis of precerebral arteries (20 sources) Internal carotid artery stenosis; Translations: [Occlusion and stenosis of right carotid artery] Onset: 4 Chronic Other aftercare (14 sources) History of hernia repair; Translations: [Encounter for follow-up examination after completed treatment for conditions other than malignant neoplasm] 09-15-2024 Episodic Other aftercare (7 sources) Surgical follow-up; Translations: [Encounter for surgical aftercare following surgery on the circulatory system] 04-18-2025 Episodic Other aftercare (1 source) Encounter for surgical aftercare following surgery on the circulatory system; Translations: [Encounter for surgical aftercare following surgery on the circulatory system] Onset: 5 Episodic Other connective tissue disease (18 sources) History of total knee arthroplasty; Translations: [Presence of left artificial knee joint] 04-01-2021 Chronic Other connective tissue disease (19 sources) History of total hip arthroplasty; Translations: [Presence of unspecified artificial hip joint] 04-01-2021 Chronic Other connective tissue disease (1 source) History of left total knee replacement; Translations: [Presence of left artificial knee joint] 04-01-2021 Chronic Other gastrointestinal disorders (1 source) Loose stool; Translations: [Other fecal abnormalities] Episodic Other gastrointestinal disorders (3 sources) Diarrhea; Translations: [Diarrhea, unspecified] Episodic Other gastrointestinal disorders (20 sources) Splenomegaly; Translations: [Splenomegaly, not elsewhere classified] Onset: 4 07-17-2024 Episodic Other gastrointestinal disorders (12 sources) Constipation; Translations: [Constipation, unspecified] 07-19-2024 Episodic Other hematologic conditions (1 source) History of anemia; Translations: [Personal history of diseases of the blood and blood-forming organs and certain disorders involving the immune mechanism] 05-23-2024 Episodic Other lower respiratory disease (20 sources) Dyspnea; Translations: [Shortness of breath] 05-17-2019 Episodic Other lower respiratory disease (19 sources) Productive cough ; Translations: [Cough productive of purulent sputum] 05-17-2019 Episodic Other lower respiratory disease (1 source) Cough; Translations: [Cough] Episodic Other lower respiratory disease (2 sources) Shortness of breath; Translations: [Shortness of breath] Onset: 5 Episodic Other male genital disorders (20 sources) Secondary erectile dysfunction; 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, unspecified] Onset: 6 01-09-2015 Chronic Other nervous system disorders (12 sources) Ataxia; Translations: [Ataxia, unspecified] 06-01-2024 Episodic [...] conditions (not mental disorders or infectious disease) (17 sources) Thyroid hormone tests abnormal; Translations: [Other [...] caused by tuberculosis or sexually transmitted disease) (19 sources) Pneumonia due to respiratory syncytial virus; Translations: [Respiratory syncytial virus pneumonia] 05-17-2019 Episodic Residual codes; unclassified (19 sources) History of repair of umbilical hernia; Translations: [Other specified postprocedural states] 04-01-2021 Episodic Residual codes; unclassified (19 sources) History of repair of eyelid; Translations: [Other specified postprocedural states] 04-01-2021 Episodic Residual codes; unclassified (19 sources) History of colonoscopy; Translations: [Other specified [...] Onset: 4 09-07-2024 Chronic Transient cerebral ischemia (14 sources) Transient cerebral ischemia; Translations: [Transient cerebral ischemic attack, unspecified] 06-07-2024 Chronic Unclassified (2 sources) Unknown / UNK(Unknown) Onset: 7 Unclassified (15 sources) High Risk Chronic Disease Home Monitoring Problem Onset: 3 02-03-2023 Unclassified (1 source) Musculoskeletal finding 11-09-2024 Unclassified (1 source) Infrarenal abdominal aortic aneurysm, without rupture; Translations: [Infrarenal abdominal aortic aneurysm, without rupture] Onset: Past or Other Problems Problem Classification Problem Date Documented Date Episodic/Chronic Abdominal hernia (20 sources) Recurrent ventral incisional hernia; Translations: [Incisional hernia without obstruction or gangrene] Onset: 07-01-2015 Resolved: 12-08-2024 08-26-2017 Episodic Comment on above: Left Abdominal pain (20 sources) Left lower quadrant pain; Translations: [Left lower quadrant pain] Onset: 11-27-2024 11-27-2024 Episodic E Codes: Fall (20 sources) Fall; Translations: [Unspecified fall, subsequent encounter] Onset: 11-21-2024 11-09-2024 Episodic Medical examination/evaluatio n (1 source) Encounter for preprocedural cardiovascular examination; Translations: [Encounter for preprocedural cardiovascular examination] Onset: 09-09-2017 Episodic Other connective tissue disease (20 sources) Musculoskeletal finding; Translations: [Other symptoms and signs involving the musculoskeletal system] Onset: 11-21-2024 Resolved: 05-24-2025 11-09-2024 Episodic Other connective tissue disease (1 source) Other symptoms and signs involving the musculoskeletal system; Translations: [Proximal leg weakness] Onset: 11-21-2024 Episodic Other nutritional; endocrine; and metabolic disorders (20 sources) Body mass index 25-29 - overweight; Translations: [Overweight] Onset: 08-10-2018 Resolved: 05-24-2025 07-09-2021 Episodic Other skin disorders (20 sources) Vitiligo; [...] part of head, initial encounter] Onset: 11-21-2024 Resolved: 05-24-2025 11-07-2024 Episodic Unclassified (4 sources) 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 Results Test Name Value Interpretation Reference Range Facility CNOVon 06-11-2025 CNOV Normal [facility] CNPTOUTREACHon 06-07-2025 CNPTOUTREACH Normal [facility] Absolute lymphocyte countOrd ered By: Mike Jay on 06-05-2025 Lymphocytes Auto (Unsp spec) [#/Vol] 0.81 10*3/uL Low 0.83-4.51 [facility] Absolute neutrophil countOrd ered By: Mike Jay on 06-05-2025 Neutrophils (Bld) [#/Vol] 3.1 10*3/uL 2.0-7.7 [facility] Anion gap in Serum or Plasma Ordered By: Mike Jay on 06-05-2025 Anion gap [Moles/Vol] 12 mmol/L 5-15 [facility] Automated lymphocyte count a s percentage of total leukocytesOrdered By: Mike Jay on 06-05-2025 Lymphocytes/100 WBC Auto (Unsp spec) 18.2 % Low 19-41 [facility] BUN/creatinine ratioOrdered By: Mike Jay on 06-05-2025 Urea nitrogen/Creatinine [Mass ratio] 23.6 mg/mg High 10-20 [facility] Basic Metabolic Profile (BMP )on 06-05-2025 BUN/CRE 23.6 RATIO High 10- [facility] Comment on above: Performed By: #### L [id number], L506.0400, L500.2500, L100.0100 ####[facility] [address] [place], [address] Calcium [Mass/Vol] 9.4 mg/dL Normal 7.6-11.0 [facility] Comment on above: Performed By: #### L [id number], L506.0400, L500.2500, L100.0100 ####[facility] [address] [place], [address] Chloride [Moles/Vol] 106 mmol/L Normal 98-108 [facility] Comment on above: Performed By: #### L [id number], L506.0400, L500.2500, L100.0100 ####[facility] [address] [place], [address] CO2 [Moles/Vol] 24.3 mmol/L Normal 21.0-32.0 [facility] Comment on above: Performed By: #### L [id number], L506.0400, L500.2500, L100.0100 ####[facility] [address] [place], [address] Creatinine [Mass/Vol] 1.69 mg/dL High 0.70-1.20 [facility] Comment on above: Performed By: #### L [id number], L506.0400, L500.2500, L100.0100 ####[facility] [address] [place], [address] GAP 12 Normal 5-15 [facility] Comment on above: Performed By: #### L [id number], L506.0400, L500.2500, L100.0100 ####[facility] [address] [place], [address] GFR/1.73 sq M.predicted among non-blacks MDRD (S/P/Bld) [Vol rate/Area] 39 mL/min/{1.73_m2} Low >60 [facility] Comment on above: Result Comment: mL/m in/1.73m2 CKD-EPI Creatinine Equation (2020) Performed By: #### L [id number], L506.0400, L500.2500, L100.0100 ####[facility] [address] [place], [address] Glucose [Mass/Vol] 110 mg/dL High 70-99 [facility] Comment on above: Performed By: #### L [id number], L506.0400, L500.2500, L100.0100 ####[facility] [address] [place], [address] Potassium [Moles/Vol] 4.5 mmol/L Normal 3.3-5.1 [facility] Comment on above: Performed By: #### L [id number], L506.0400, L500.2500, L100.0100 ####[facility] [address] [place], [address] Sodium [Moles/Vol] 142 mmol/L Normal 133-145 [facility] Comment on above: Performed By: #### L [id number], L506.0400, L500.2500, L100.0100 ####[facility] [address] [place], [address] Urea nitrogen [Mass/Vol] 40 mg/dL High 4-19 [facility] Comment on above: Performed By: #### L [id number], L506.0400, L500.2500, L100.0100 ####[facility] [address] [place], [address] Basophil percentageOrdered B y: Mike [facility] on 06-05-2025 Basophils/100 WBC (Bld) 0.7 % 0-1 [facility] CBC W/Diff, Automatedon 05-21 Absolute Lymph 0.81 X10 3/uL Low 0.83-4.51 [facility] Comment on above: Performed By: #### L [id number], L506.0400, L500.2500, L100.0100 ####[facility] [address] [place], [address] Absolute Neut 3.1 X10 3/uL Normal 2.0-7.7 [facility] Comment on above: Performed By: #### L [id number], L506.0400, L500.2500, L100.0100 ####[facility] [address] [place], [address] Basophils/100 WBC (Bld) 0.7 % Normal 0-1 [facility] Comment on above: Performed By: #### L [id number], L506.0400, L500.2500, L100.0100 ####[facility] [address] [place], [address] Eosinophils/100 WBC (Bld) 3.8 % Normal 0-5 [facility] Comment on above: Performed By: #### L [id number], L506.0400, L500.2500, L100.0100 ####[facility] [address] [place], [address] Erythrocyte distribution width (RBC) [Ratio] 15.3 % High 11.6-14.6 [facility] Comment on above: Performed By: #### L [id number], L506.0400, L500.2500, L100.0100 ####[facility] [address] [place], [address] Hematocrit (Bld) [Volume fraction] 31.2 % Low 40-54 [facility] Comment on above: Performed By: #### L [id number], L506.0400, L500.2500, L100.0100 ####[facility] [address] [place], [address] Hemoglobin (Bld) [Mass/Vol] 10.5 g/dL Low 13.0-16.5 [facility] Comment on above: Performed By: #### L [id number], L506.0400, L500.2500, L100.0100 ####[facility] [address] [place], [address] IG% 0.200 Normal 0.0-0.9 [facility] Comment on above: Result Comment: IG% - Immature Granulocytes (promyelocytes, myelocytes andmetamyelocytes) > 1% indicates that a LEFT SHIFT is Present. Performed By: #### L [id number], L506.0400, L500.2500, L100.0100 ####[facility] [address] [place], [address] Lymphocytes/100 WBC (Bld) 18.2 % Low 19-41 [facility] Comment on above: Performed By: #### L [id number], L506.0400, L500.2500, L100.0100 ####[facility] [address] [place], [address] MCH (RBC) [Entitic mass] 30.5 pg Normal 27.0-32.0 [facility] Comment on above: Performed By: #### L [id number], L506.0400, L500.2500, L100.0100 ####[facility] [address] [place], [address] MCHC (RBC) [Mass/Vol] 33.7 g/dL Normal 32-36 [facility] Comment on above: Performed By: #### L [id number], L506.0400, L500.2500, L100.0100 ####[facility] [address] [place], [address] MCV (RBC) [Entitic vol] 90.7 fL Normal 80-94 [facility] Comment on above: Performed By: #### L [id number], L506.0400, L500.2500, L100.0100 ####[facility] [address] [place], [address] Monocytes/100 WBC (Bld) 8.7 % Normal 0-10 [facility] Comment on above: Performed By: #### L 501.9520, L506.0400, L500.2500, L100.0100 ####[facility] [address] [place], [address] Neutrophils/100 WBC (Bld) 68.4 % Normal 47-70 [facility] Comment on above: Performed By: #### L [id number], L506.0400, L500.2500, L100.0100 ####[facility] [address] [place], [address] Nucleated RBC (Bld) [#/Vol] 0 10*3/uL Normal 0-5 [facility] Comment on above: Performed By: #### L [id number], L506.0400, L500.2500, L100.0100 ####[facility] [address] [place], [address] Platelet mean volume (Bld) [Entitic vol] 11.5 fL Normal 6.2-12.0 [facility] Comment on above: Performed By: #### L [id number], L506.0400, L500.2500, L100.0100 ####[facility] [address] [place], [address] Platelets (Bld) [#/Vol] 110 10*3/uL Low 150-450 [facility] Comment on above: Performed By: #### L [id number], L506.0400, L500.2500, L100.0100 ####[facility] [address] [place], [address] RBC (Bld) [#/Vol] 3.44 10*6/uL Low 4.6-6.2 [facility] Comment on above: Performed By: #### L [id number], L506.0400, L500.2500, L100.0100 ####[facility] [address] [place], [address] RDW SD 50.7 fl High 35.1-43.9 [facility] Comment on above: Performed By: #### L [id number], L506.0400, L500.2500, L100.0100 ####[facility] [address] [place], [address] WBC (Bld) [#/Vol] 4.5 10*3/uL Normal 4.4-11.0 [facility] Comment on above: Performed By: #### L [id number], L506.0400, L500.2500, L100.0100 ####[facility] [address] [place], [address] Carbon dioxide, total [Moles /volume] in Central venous bloodOrdered By: Mike Jay on 06-05-2025 CO2 [Moles/Vol] 24.3 mmol/L 21.0-32.0 [facility] Cardiology Visit Reporton Cardiology Visit Report Normal [facility] Chloride assayOrdered By: Keily Jay on 06-05-2025 Chloride [Moles/Vol] 106 mmol/L 98-108 [facility] Eosinophil percentageOrdered By: Mike Jay on 06-05-2025 Eosinophils/100 WBC (Bld) 3.8 % 0-5 [facility] Erythrocyte distribution wid th ratioOrdered By: Mike Jay on 06-05-2025 Erythrocyte distribution width (RBC) [Ratio] 15.3 % High 11.6-14.6 [facility] Erythrocyte distribution wid th standard deviationOrdered By: Mike Jay on 06-05-2025 Erythrocyte distribution width (RBC) [Ratio] 50.7 fl High 35.1-43.9 [facility] Glomerular filtration rate ( GFR) estimation/1.73 sq m using serum, plasma, or whole bOrdered By: Mike Jay on 06-05-2025 GFR/1.73 sq M.predicted among non-blacks MDRD (S/P/Bld) [Vol rate/Area] 39 mL/min/{1.73_m2} Low >60 [facility] Comment on above: mL/min/1.73m2 CKD-EP I Creatinine Equation (2020) Hematocrit Auto (Bld) [Volum e fraction]Ordered By: Mike Jay on 06-05-2025 Hematocrit (Bld) [Volume fraction] 31.2 % Low 40-54 [facility] Hemoglobin measurementOrdere d By: Mike Jay on 06-05-2025 Hemoglobin (Bld) [Mass/Vol] 10.5 g/dL Low 13.0-16.5 [facility] Immature granulocytes/100 WB C Auto (Bld)Ordered By: Mike Jay on 06-05-2025 Immature granulocytes/100 WBC (Bld) 0.200 % 0.0-0.9 [facility] Comment on above: IG% - Immature Granu locytes (promyelocytes, myelocytes and metamyelocytes) > 1% indicates that a LEFT SHIFT is Present. MCV (mean corpuscular volume ) determinationOrdered By: Mike Jay on 06-05-2025 MCV (RBC) [Entitic vol] 90.7 fL 80-94 [facility] Mean corpuscular hemoglobin (MCH) determinationOrdered By: Mike Jay on 06-05-2025 MCH (RBC) [Entitic mass] 30.5 pg 27.0-32.0 [facility] Mean corpuscular hemoglobin concentration (MCHC) determinationOrdered By: Mike Jay on 06-05-2025 MCHC (RBC) [Mass/Vol] 33.7 g/dL 32-36 [facility] Mean platelet volume determi nationOrdered By: Mike Jay on 06-05-2025 Platelet mean volume (Bld) [Entitic vol] 11.5 fL 6.2-12.0 [facility] Monocyte percentageOrdered B y: Mike Jay on 06-05-2025 Monocytes/100 WBC (Bld) 8.7 % 0-10 [facility] Neutrophil percentageOrdered By: Mike Jay on 06-05-2025 Neutrophils/100 WBC (Bld) 68.4 % 47-70 [facility] Nucleated red blood cell per centageOrdered By: Mike Jay on 06-05-2025 Nucleated RBC/100 WBC (Bld) [Ratio] 0 % 0-5 [facility] Platelet countOrdered By: Keily Jay on 06-05-2025 Platelets (Bld) [#/Vol] 110 10*3/uL Low 150-450 [facility] Potassium measurement (mass/ volume)Ordered By: Mike Jay on 06-05-2025 Potassium (Unsp spec) [Mass/Vol] 4.5 mmol/L 3.3-5.1 [facility] RBC Auto (Bld) [#/Vol]Ordere d By: Mike Jay on 06-05-2025 RBC (Bld) [#/Vol] 3.44 10*6/uL Low 4.6-6.2 [facility] Serum creatinine measurement (mass/volume)Ordered By: Mike Jay on 06-05-2025 Creatinine [Mass/Vol] 1.69 mg/dL High 0.70-1.20 [facility] Serum glucose measurement (m ass/volume)Ordered By: Mike Jay on 06-05-2025 Glucose [Mass/Vol] 110 mg/dL High 70-99 [facility] Serum or plasma calcium jossie urement (mass/volume)Ordered By: Mike Jay on 06-05-2025 Calcium [Mass/Vol] 9.4 mg/dL 7.6-11.0 [facility] Serum or plasma urea nitroge n measurement (mass/volume)Ordered By: Mike Jay on 06-05-2025 Urea nitrogen [Mass/Vol] 40 mg/dL High 4-19 [facility] Sodium levelOrdered By: Mike Jay on 06-05-2025 Sodium [Moles/Vol] 142 mmol/L 133-145 [facility] T4 Free Directon 06-05-2025 T4 FREE DIRECT 1.10 ng/dL Normal 0.76-1.46 [facility] Comment on above: Performed By: #### L [id number], L506.0400, L500.2500, L100.0100 ####[facility] [address] [place], [address] T4 freeOrdered By: Mike Jay on 06-05-2025 Free T4 [Mass/Vol] 1.10 ng/dL 0.76-1.46 [facility] TSH DL <= 0.005 mIU/L QnOrde red By: Mike Jay on 06-05-2025 TSH Qn 8.050 uIU/mL High 0.300-4.200 [facility] Thyroid Stim Hormone (TSH)on 06-05-2025 TSH 8.050 uIU/mL High 0.300-4.200 [facility] Comment on above: Performed By: #### L [id number], L506.0400, L500.2500, L100.0100 ####[facility] [address] [place], [address] White blood cell (WBC) count Ordered By: Mike Jay on 06-05-2025 WBC (Bld) [#/Vol] 4.5 10*3/uL 4.4-11.0 [facility] CNOVon 05-24-2025 CNOV Normal [facility] CNPTOUTREACHon 05-24-2025 CNPTOUTREACH Normal [facility]PTOUTREACHon 05-23-20[facility] Absolute lymphocyte countOrd ered By: Cameron Portillo on 05-22-2025 Lymphocytes Auto (Unsp spec) [#/Vol] 1.02 10*3/uL 0.83-4.51 [facility] Absolute neutrophil countOrd ered By: Cameron Portillo on 05-22-2025 Neutrophils (Bld) [#/Vol] 2.3 10*3/uL 2.0-7.7 [facility] Activated partial thrombopla stin time (aPTT) in platelet poor plasma by coagulation aOrdered By: Veena Nelson on 05-22-2025 aPTT Coag (PPP) [Time] 67.5 s High 24.1-36.2 [facility] Anion gap in Serum or Plasma Ordered By: Cameron Portillo on 05-22-2025 Anion gap [Moles/Vol] 10 mmol/L 5-15 [facility] Automated lymphocyte count a s percentage of total leukocytesOrdered By: Cameron Portillo on 05-22-2025 Lymphocytes/100 WBC Auto (Unsp spec) 25.9 % 19-41 [facility] BUN/creatinine ratioOrdered By: Cameron Portillo on 05-22-2025 Urea nitrogen/Creatinine [Mass ratio] 24.2 mg/mg High 10-20 [facility] Basophil percentageOrdered B y: Cameron Portillo on 05-22-2025 Basophils/100 WBC (Bld) 0.5 % 0-1 [facility] Bilirubin, totalOrdered By: Cameron Portillo on 05-22-2025 Bilirubin [Mass/Vol] 0.50 mg/dL 0.00-1.30 [facility] CBC W/Diff, Automatedon Absolute Neut Normal 2.0-7.7 [facility] Comment on above: Result Comment: DUPL ICATE Performed By: #### L 100.0100 ####[facility] [address] [place], [address] HCT Normal 40-54 [facility] Comment on above: Result Comment: DUPL ICATE Performed By: #### L 100.0100 ####[facility] [address] [place], [address] HGB Normal 13.0-16.5 [facility] Comment on above: Result Comment: DUPL ICATE Performed By: #### L 100.0100 ####[facility] [address] [place], [address] MCH Normal 27.0-32.0 [facility] Comment on above: Result Comment: DUPL ICATE Performed By: #### L 100.0100 ####[facility] [address] [place], [address] MCHC Normal 32-36 [facility] Comment on above: Result Comment: DUPL ICATE Performed By: #### L 100.0100 ####[facility] [address] [place], [address] MCV Normal 80-94 [facility] Comment on above: Result Comment: DUPL ICATE Performed By: #### L 100.0100 ####[facility] [address] [place], [address] NEUT% Normal 47-70 [facility] Comment on above: Result Comment: DUPL ICATE Performed By: #### L 100.0100 ####[facility] [address] [place], [address] PLT Normal 150-450 [facility] Comment on above: Result Comment: DUPL ICATE Performed By: #### L 100.0100 ####[facility] [address] [place], [address] RBC Normal 4.6-6.2 [facility] Comment on above: Result Comment: DUPL ICATE Performed By: #### L 100.0100 ####[facility] [address] [place], [address] RDW CV Normal 11.6-14.6 [facility] Comment on above: Result Comment: DUPL ICATE Performed By: #### L 100.0100 ####[facility] [address] [place], [address] RDW SD Normal 35.1-43.9 [facility] Comment on above: Result Comment: DUPL ICATE Performed By: #### L 100.0100 ####[facility] [address] [place], [address] WBC Normal 4.4-11.0 [facility] Comment on above: Result Comment: DUPL ICATE Performed By: #### L 100.0100 ####[facility] [address] [place], [address] Absolute Lymph 1.02 X10 3/uL Normal 0.83-4.51 [facility] Comment on above: Performed By: #### L 500.4050, L503.7505, L100.0100 ####[facility] [address] [place], [address] Absolute Neut 2.3 X10 3/uL Normal 2.0-7.7 [facility] Comment on above: Performed By: #### L 500.4050, L503.7505, L100.0100 ####[facility] [address] [place], [address] Basophils/100 WBC (Bld) 0.5 % Normal 0-1 [facility] Comment on above: Performed By: #### L 500.4050, L503.7505, L100.0100 ####[facility] [address] [place], [address] Eosinophils/100 WBC (Bld) 4.8 % Normal 0-5 [facility] Comment on above: Performed By: #### L 500.4050, L503.7505, L100.0100 ####[facility] [address] [place], [address] Erythrocyte distribution width (RBC) [Ratio] 15.0 % High 11.6-14.6 [facility] Comment on above: Performed By: #### L 500.4050, L503.7505, L100.0100 ####[facility] [address] [place], [address] Hematocrit (Bld) [Volume fraction] 27.8 % Low 40-54 [facility] Comment on above: Performed By: #### L 500.4050, L503.7505, L100.0100 ####[facility] [address] [place], [address] Hemoglobin (Bld) [Mass/Vol] 9.2 g/dL Low 13.0-16.5 [facility] Comment on above: Performed By: #### L 500.4050, L503.7505, L100.0100 ####[facility] [address] [place], [address] IG% 0.300 Normal 0.0-0.9 [facility] Comment on above: Result Comment: IG% - Immature Granulocytes (promyelocytes, myelocytes andmetamyelocytes) > 1% indicates that a LEFT SHIFT is Present. Performed By: #### L 500.4050, L503.7505, L100.0100 ####[facility] [address] [place], [address] Lymphocytes/100 WBC (Bld) 25.9 % Normal 19-41 [facility] Comment on above: Performed By: #### L 500.4050, L503.7505, L100.0100 ####[facility] [address] [place], [address] MCH (RBC) [Entitic mass] 29.9 pg Normal 27.0-32.0 [facility] Comment on above: Performed By: #### L 500.4050, L503.7505, L100.0100 ####[facility] [address] [place], [address] MCHC (RBC) [Mass/Vol] 33.1 g/dL Normal 32-36 [facility] Comment on above: Performed By: #### L 500.4050, L503.7505, L100.0100 ####[facility] [address] [place], [address] MCV (RBC) [Entitic vol] 90.3 fL Normal 80-94 [facility] Comment on above: Performed By: #### L 500.4050, L503.7505, L100.0100 ####[facility] [address] [place], [address] Monocytes/100 WBC (Bld) 9.6 % Normal 0-10 [facility] Comment on above: Performed By: #### L 500.4050, L503.7505, L100.0100 ####[facility] [address] [place], [address] Neutrophils/100 WBC (Bld) 58.9 % Normal 47-70 [facility] Comment on above: Performed By: #### L 500.4050, L503.7505, L100.0100 ####[facility] [address] [place], [address] Nucleated RBC (Bld) [#/Vol] 0 10*3/uL Normal 0-5 [facility] Comment on above: Performed By: #### L 500.4050, L503.7505, L100.0100 ####[facility] [address] [place], [address] Platelet mean volume (Bld) [Entitic vol] 11.1 fL Normal 6.2-12.0 [facility] Comment on above: Performed By: #### L 500.4050, L503.7505, L100.0100 ####[facility] [address] [place], [address] Platelets (Bld) [#/Vol] 83 10*3/uL Low 150-450 [facility] Comment on above: Performed By: #### L 500.4050, L503.7505, L100.0100 ####[facility] [address] [place], [address] RBC (Bld) [#/Vol] 3.08 10*6/uL Low 4.6-6.2 [facility] Comment on above: Performed By: #### L 500.4050, L503.7505, L100.0100 ####[facility] [address] [place], [address] RDW SD 49.6 fl High 35.1-43.9 [facility] Comment on above: Performed By: #### L 500.4050, L503.7505, L100.0100 ####[facility] [address] [place], [address] WBC (Bld) [#/Vol] 3.9 10*3/uL Low 4.4-11.0 [facility] Comment on above: Performed By: #### L 500.4050, L503.7505, L100.0100 ####[facility] [address] [place], [address] Carbon dioxide, total [Moles /volume] in Central venous bloodOrdered By: Cameron Portillo on 05-22-2025 CO2 [Moles/Vol] 24.0 mmol/L 21.0-32.0 [facility] Cardiovascular stress test r eportOrdered By: Jaciel Bahena on 05-22-2025 Study report [facility] [address] [place] [address] MR#: [id number] Acct: [id number] Name: LEANA CAMEJO Rep #: [id number] : 1940 85 From: Jaciel Bahena MD Primary Care: Dr. Dallas Reed MD atus: ADM IN Referring Dr: Sex: M C Stress Test Report Date: 05/22/2025 Procedure: Pharmacologic stress nuclear imaging study Indications: Chest pain Consent: Per the patient Procedure: The patient underwent pharmacologic (Regadenoson 0.4mg ) evaluation with a peak heart rate of 92 beats per minute (68%predicted maximal heart rate) and a peak blood pressure of 118/82 mmHg. The baseline ECG demonstrated sinus rhythm with LVH with strain pattern. The peak pharmacologic ECG failed to show any ischemic changes. Frequent PVCs post pharmacologic infusion. There was no complaint of chest discomfort during pharmacologic infusion or recovery. The patient was injected with 12.0 millicuries of technetium 99m Cardiolite and subsequently rest SPECT Cardiolite nuclear imaging was obtained in the horizontal long, vertical long, and short axis views. The patient underwent pharmacologic (Regadenoson) evaluation. The patient was injected with 36.0 millicuries of technetium 99m Cardiolite and subsequently stress SPECT Cardiolite nuclear imaging was obtained in the horizontal long, vertical long, and short axis views. A gated Cardiolite study at peak stress was obtained. The examination was stopped secondary to completion of protocol. Rest and stress SPECT Cardiolite nuclear imaging status post realignment, normalization, and attenuation correction demonstrate large perfusion defect of the inferior wall suggestive of previous infarct with moderate kelby-infarct ischemia mild to moderate reversible ischemia of the lateral wall is also noted. The gated study shows inferior hypokinesis. The reported LVEF is 48%. Impression: 1. Pharmacologic (Regadenoson) evaluation 2. Peak pharmacologic ECG with no diagnostic ischemic changes. 3. Frequent PVCs in recovery. 5. 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 Reversible ischemia of the lateral wall. 6. The gated Cardiolite study reports an LVEF of 48%. This note was generated with [employer] software. It may contain incorrectwords, spelling, and punctuation that were not noted in checking the note beforesigning. 05/22/25 1541 Date _ Jaciel Bahena MD CC: SHELLIE Jay; Dr. Marcel Cordova MD; Dr. Tamera Jorgensen MD; Dr. Emily Horner MD; Dr. Randy Soler MD; Dr. Dedrick Zamarripa MD; Dr. Gilmar Mueller MD; Dr. Veena Nelson DO; Dr. Donato Longoria MD; Dr. Cameron Leiva DO; Dr. Cameron Solares DO; Dr. Lorraine Mcdowell MD; Dr. Gricel Donald MD; Dr. Alexandru Laughlin MD; Dr. Beronica Turcios MD; Dr. Olamide Morales MD; Dr. Sinan Toro MD; Dr. Elisha Eason MD; Dr. Jm Wilson MD; Dr. Dallas Reed MD; CHRIS Chand; CHRIS Murrell ~ Date Dictated: 05/22/251535 Date Transcribed: 05/22/251535 English Lecturer: SONA Signed [facility] Work Phone: Chest 1 View (Portable)on Chest 1 View (Portable) Normal [facility] Chloride assayOrdered By: Justen Portillo on 05-22-2025 Chloride [Moles/Vol] 104 mmol/L 98-108 [facility] Comprehensive Metabolic Prof ilon 05-22-2025 Albumin [Mass/Vol] 3.5 g/dL Normal 3.4-4.8 [facility] Comment on above: Performed By: #### L 500.4050, L503.7505, L100.0100 ####[facility] [address] [place], [address] Albumin/Globulin [Mass ratio] 1.2 {ratio} Normal 0.9-2.4 [facility] Comment on above: Performed By: #### L 500.4050, L503.7505, L100.0100 ####[facility] [address] [place], [address] ALK PHOS 37 U/L Low 40-129 [facility] Comment on above: Performed By: #### L 500.4050, L503.7505, L100.0100 ####[facility] [address] [place], [address] ALT [Catalytic activity/Vol] 19 U/L Normal <=46 [facility] Comment on above: Performed By: #### L 500.4050, L503.7505, L100.0100 ####[facility] [address] [place], [address] AST [Catalytic activity/Vol] 84 U/L High <=37 [facility] Comment on above: Performed By: #### L 500.4050, L503.7505, L100.0100 ####[facility] [address] [place], [address] Bilirubin [Mass/Vol] 0.50 mg/dL Normal 0.00-1.30 [facility] Comment on above: Performed By: #### L 500.4050, L503.7505, L100.0100 ####[facility] [address] [place], [address] BUN/CRE 24.2 RATIO High 10-20 [facility] Comment on above: Performed By: #### L 500.4050, L503.7505, L100.0100 ####[facility] [address] [place], [address] Calcium [Mass/Vol] 8.8 mg/dL Normal 7.6-11.0 [facility] Comment on above: Performed By: #### L 500.4050, L503.7505, L100.0100 ####[facility] [address] [place], [address] Chloride [Moles/Vol] 104 mmol/L Normal 98-108 [facility] Comment on above: Performed By: #### L 500.4050, L503.7505, L100.0100 ####[facility] [address] [place], [address] CO2 [Moles/Vol] 24.0 mmol/L Normal 21.0-32.0 [facility] Comment on above: Performed By: #### L 500.4050, L503.7505, L100.0100 ####[facility] [address] [place], [address] Creatinine [Mass/Vol] 1.79 mg/dL High 0.70-1.20 [facility] Comment on above: Performed By: #### L 500.4050, L503.7505, L100.0100 ####[facility] [address] [place], [address] ECRCL 27.06 ml/min Low 50-250 [facility] Comment on above: Performed By: #### L 500.4050, L503.7505, L100.0100 ####[facility] [address] [place], [address] GAP 10 Normal 5-15 [facility] Comment on above: Performed By: #### L 500.4050, L503.7505, L100.0100 ####[facility] [address] [place], [address] GFR/1.73 sq M.predicted among non-blacks MDRD (S/P/Bld) [Vol rate/Area] 37 mL/min/{1.73_m2} Low >60 [facility] Comment on above: Result Comment: mL/m in/1.73m2 CKD-EPI Creatinine Equation (2020) Performed By: #### L 500.4050, L503.7505, L100.0100 ####[facility] [address] [place], [address] Globulin (S) [Mass/Vol] 2.9 g/dL Normal 2.2-4.2 [facility] Comment on above: Performed By: #### L 500.4050, L503.7505, L100.0100 ####[facility] [address] [place], [address] Glucose [Mass/Vol] 92 mg/dL Normal 70-99 [facility] Comment on above: Performed By: #### L 500.4050, L503.7505, L100.0100 ####[facility] [address], [address] Potassium [Moles/Vol] 3.9 mmol/L Normal 3.3-5.1 [facility] Comment on above: Performed By: #### L 500.4050, L503.7505, L100.0100 ####[facility] [address] [place] [place], [address] Sodium [Moles/Vol] 138 mmol/L Normal 133-145 [facility] Comment on above: Performed By: #### L 500.4050, L503.7505, L100.0100 ####[facility] [address], [address] T PROT 6.3 g/dL Normal 5.9-8.4 [facility] Comment on above: Performed By: #### L 500.4050, L503.7505, L100.0100 ####[facility] [address] [place], [address] Urea nitrogen [Mass/Vol] 43 mg/dL High 4-19 [facility] Comment on above: Performed By: #### L 500.4050, L503.7505, L100.0100 ####[facility] [address] [place], [address] Discharge Instructionon 0 Discharge Instruction Normal [facility] Electrocardiogram reportOrde red By: Alexandru Laughlin on 05-22-2025 EKG study [facility] Services [address] [place] [address] 12 Lead EKG 05/21/25 0856 MR#: [id number] Acct: [id number] Name: LEANA CAMEJO Rep #:[id number] : 1940 85 From: Alexandru carbajal MD Attending Dr: Dr. Olamide Morales MD Status: ADM IN Ordering Dr: Lorraine Mcdowell MD Date: Location: ICU Sex: M C Admitted: 05/21/25 Test Reason : EKG CHANGE Blood Pressure : */* mmHG Vent. Rate : 69 BPM Atrial Rate : 69 BPM P-R Int : 158 ms QRS Dur : 98 ms QT Int : 460 ms P-R-T Axes : 78 49 63 degrees QTcB Int : 492 ms Normal sinus rhythm Minimal voltage criteria for LVH, may be normal variant ( Sokolow-Lindsay ) Nonspecific ST and T wave abnormality Prolonged QT Abnormal ECG No previous ECGs available Confirmed by Alexandru Laughlin ([id number]), photo editor BENITA NUNN ([id number]) on 05/22/2025 11:11:41 AM Referred By: JULY Confirmed By: Alexandru Lauhglin 05/22/25 1111 Date _ Alexandru Laughlin MD CC: Dr. Lorraine Mcdowell MD; Dr. Olamide Morales MD; Dr. Dallas Reed MD ~ Signed [facility] Work Phone: EKG study [facility] Services [address] [place] [address] 12 Lead EKG 05/21/25 0215 MR#: [id number] Acct: [id number] Name: LEANA CAMEJO Rep #:[id number] : 1940 85 From: Alexandru carbajal MD Attending Dr: Dr. Olamide Morales MD Status: ADM IN Ordering Dr: Veena Nelson DO Date: 05/21/25 Location: ICU Sex: M C Admitted: 05/21/25 Test Reason : REPEAT Blood Pressure : */* mmHG Vent. Rate : 85 BPM Atrial Rate : 85 BPM P-R Int : 176 ms QRS Dur : 96 ms QT Int : 418 ms P-R-T Axes : 64 62 252 degrees QTcB Int : 497 ms Sinus rhythm with occasional Premature ventricular complexes Left ventricular hypertrophy with repolarization abnormality ( Sokolow-Lindsay , Romhilt-Noguera ) QTcB >= 480 msec Abnormal ECG Confirmed by Alexandru Laughlin ([id number]), photo editor TORIE MUKHERJEE ([id number]) on 05/22/2025 10:46:57 AM Referred By: Confirmed By: Alexandru Laughlin 05/22/25 1047 Date _ Alexandru Laughlin MD CC: Dr. Veena Nelson DO; Dr. Olamide Morales MD; Dr. Dallas Reed MD ~ Signed [facility] Work Phone: EKG study [facility] Services [address] [place] [address] 12 Lead EKG 05/21/25 0123 MR#: [id number] Acct: [id number] Name: LEANA CAMEJO Rep #:[id number] : 1940 85 From: Alexandru carbajal MD Attending Dr: Dr. Olamide Morales MD Status: ADM IN Ordering Dr: Veena Nelson DO Date: 05/21/25 Location: ICU Sex: M C Admitted: 05/21/25 Test Reason : CP Blood Pressure : */* mmHG Vent. Rate : 153 BPM Atrial Rate : 150 BPM P-R Int : 200 ms QRS Dur : 102 ms QT Int : 306 ms P-R-T Axes : -10 68 207 degrees QTcB Int : 488 ms Critical Test Result: High HR Undetermined rhythm Marked ST abnormality, possible inferior subendocardial injury Marked ST abnormality, possible anterolateral subendocardial injury Abnormal ECG Confirmed by Alexandru Laughlin ([id number]), photo editor TORIE MUKHERJEE ([id number]) on 05/22/2025 10:46:34 AM Referred By: Confirmed By: Alexandru Laughlin 05/22/25 1046 Date _ Alexandru Laughlin MD CC: Dr. Veena Nelson DO; Dr. Olamide Morales MD; Dr. Dallas Reed MD ~ Signed [facility] Work Phone: EKG study [facility] Cardi[facility] Services [address] [place] [address] 12 Lead EKG 05/21/25 0202 MR#: [id number] Acct: [id number] Name: LEANA CAMEJO Rep #:[id number] : 1940 85 From: Alexandru carbajal MD Attending Dr: Dr. Olamide Morales MD Status: ADM IN Ordering Dr: Veena Nelson DO Date: 05/21/25 Location: ICU Sex: M C Admitted: 05/21/25 Test Reason : REPEAT Blood Pressure : */* mmHG Vent. Rate : 85 BPM Atrial Rate : 85 BPM P-R Int : 170 ms QRS Dur : 96 ms QT Int : 420 ms P-R-T Axes : 71 68 138 degrees QTcB Int : 499 ms Critical Test Result: STEMI Sinus rhythm with occasional Premature ventricular complexes Left ventricular hypertrophy with repolarization abnormality ( Romhilt-Noguera ) ST elevation consider inferior injury or acute infarct QTcB >= 480 msec ACUTE NH / STEMI Consider right ventricular involvement in acute inferior infarct Abnormal ECG Confirmed by Alexandru Laughlin ([id number]), photo editor TORIE MUKHERJEE ([id number]) on 05/22/2025 10:46:46 AM Referred By: Confirmed By: Alexandru Laughlin 05/22/25 1046 Date _ Alexandru Laughlin MD CC: Dr. Veena Nelson DO; Dr. Olamide Morales MD; Dr. Dallas Reed MD ~ Signed [facility] Work Phone: [phone] Eosinophil percentageOrdered By: Cameron Portillo on 05-22-2025 Eosinophils/100 WBC (Bld) 4.8 % 0-5 [facility] Erythrocyte distribution wid th ratioOrdered By: Cameron Portillo on 05-22-2025 Erythrocyte distribution width (RBC) [Ratio] 15.0 % High 11.6-14.6 [facility] Erythrocyte distribution wid th standard deviationOrdered By: Cameron Portillo on 05-22-2025 Erythrocyte distribution width (RBC) [Ratio] 49.6 fl High 35.1-43.9 [facility] Glomerular filtration rate ( GFR) estimation/1.73 sq m using serum, plasma, or whole bOrdered By: Cameron Portillo on 05-22-2025 GFR/1.73 sq M.predicted among non-blacks MDRD (S/P/Bld) [Vol rate/Area] 37 mL/min/{1.73_m2} Low >60 [facility] Comment on above: mL/min/1.73m2 CKD-EP I Creatinine Equation (2020) Hematocrit Auto (Bld) [Volum e fraction]Ordered By: Cameron Portillo on 05-22-2025 Hematocrit (Bld) [Volume fraction] 27.8 % Low 40-54 [facility] Hemoglobin measurementOrdere d By: Cameron Portillo on 05-22-2025 Hemoglobin (Bld) [Mass/Vol] 9.2 g/dL Low 13.0-16.5 [facility] Immature granulocytes/100 WB C Auto (Bld)Ordered By: Cameron Portillo on 05-22-2025 Immature granulocytes/100 WBC (Bld) 0.300 % 0.0-0.9 [facility] Comment on above: IG% - Immature Granu locytes (promyelocytes, myelocytes and metamyelocytes) > 1% indicates that a LEFT SHIFT is Present. Laboratory - Chemistry and C hemistry - challengeOrdered By: Cameron Portillo on 05-22-2025 AST [Catalytic activity/Vol] 84 U/L High <38 [facility] MCV (mean corpuscular volume ) determinationOrdered By: Cameron Portillo on 05-22-2025 MCV (RBC) [Entitic vol] 90.3 fL 80-94 [facility] Mean corpuscular hemoglobin (MCH) determinationOrdered By: Cameron Portillo on 05-22-2025 MCH (RBC) [Entitic mass] 29.9 pg 27.0-32.0 [facility] Mean corpuscular hemoglobin concentration (MCHC) determinationOrdered By: Cameron Portillo on 05-22-2025 MCHC (RBC) [Mass/Vol] 33.1 g/dL 32-36 [facility] Mean platelet volume determi nationOrdered By: Cameron Portillo on 05-22-2025 Platelet mean volume (Bld) [Entitic vol] 11.1 fL 6.2-12.0 [facility] Monocyte percentageOrdered B y: Cameron Portillo on 05-22-2025 Monocytes/100 WBC (Bld) 9.6 % 0-10 [facility] Natriuretic peptide.B prohor mani N-Terminal [Mass/volume] in Serum or PlasmaOrdered By: Cameron Portillo on 05-22-2025 Natriuretic peptide.B prohormone N-Terminal [Mass/Vol] 99337 pg/mL High <1800 [facility] Comment on above: Heart Failure Unlike ly: < 300 pg/mLHeart Failure Likely< 50 Years: > 450 pg/mL50-75 Years: > 900 pg/mL>75 Years: > 1800 pg/mL Neutrophil percentageOrdered By: Cameron Portillo on 05-22-2025 Neutrophils/100 WBC (Bld) 58.9 % 47-70 [facility] Nucleated red blood cell per centageOrdered By: Cameron Portillo on 05-22-2025 Nucleated RBC/100 WBC (Bld) [Ratio] 0 % 0-5 [facility] Partial Thromboplast Timeon 05-22-2025 aPTT Coag (Bld) [Time] 67.5 s High 24.1-36.2 [facility] Comment on above: Performed By: #### L 300.4310 ####[facility] [address] [facility] [place], [place], [id number] Platelet countOrdered By: Justen Portillo on 05-22-2025 Platelets (Bld) [#/Vol] 83 10*3/uL Low 150-450 [facility] Potassium measurement (mass/ volume)Ordered By: Cameron Portillo on 05-22-2025 Potassium (Unsp spec) [Mass/Vol] 3.9 mmol/L 3.3-5.1 [facility] [facility] NATRIURETIC PEPTI [place] 05-22-2025 Natriuretic peptide B (Bld) [Mass/Vol] 76178 pg/mL High <=1800 [facility] Comment on above: Result Comment: Hear t Failure Unlikely: < 300 pg/mLHeart Failure Likely< 50 Years: > 450 pg/mL50-75 Years: > 900 pg/mL>75 Years: > 1800 pg/mL Performed By: #### L 500.4050, L503.7505, L100.0100 ####[facility] [address] [facility]. [place], [place], [id number] RBC Auto (Bld) [#/Vol]Ordere d By: Cameron Portillo on 05-22-2025 RBC (Bld) [#/Vol] 3.08 10*6/uL Low 4.6-6.2 [facility] Serum creatinine measurement (mass/volume)Ordered By: Cameron Portillo on 05-22-2025 Creatinine [Mass/Vol] 1.79 mg/dL High 0.70-1.20 [facility] Serum globulin measurementOr dered By: Cameron Portillo on 05-22-2025 Globulin (S) [Mass/Vol] 2.9 g/dL 2.2-4.2 [facility] Serum glucose measurement (m ass/volume)Ordered By: Cameron Portillo on 05-22-2025 Glucose [Mass/Vol] 92 mg/dL 70-99 [facility] Serum or plasma alanine delgado otransferase (ALT) measurementOrdered By: Cameron Portillo on 05-22-2025 ALT [Catalytic activity/Vol] 19 U/L <47 [facility] Serum or plasma albumin jossie urement (mass/volume)Ordered By: Cameron Portillo on 05-22-2025 Albumin [Mass/Vol] 3.5 g/dL 3.4-4.8 [facility] Serum or plasma albumin/glob ulin mass ratioOrdered By: Cameron Portillo on 05-22-2025 Albumin/Globulin [Mass ratio] 1.2 {ratio} 0.9-2.4 [facility] Serum or plasma alkaline silas sphatase measurementOrdered By: Cameron Portillo on 05-22-2025 ALP [Catalytic activity/Vol] 37 U/L Low 40-129 [facility] Serum or plasma calcium jossie urement (mass/volume)Ordered By: Cameron Portillo on 05-22-2025 Calcium [Mass/Vol] 8.8 mg/dL 7.6-11.0 [facility] Serum or plasma urea nitroge n measurement (mass/volume)Ordered By: Cameron Portillo on 05-22-2025 Urea nitrogen [Mass/Vol] 43 mg/dL High 4-19 [facility] Sodium levelOrdered By: Steve Portillo on 05-22-2025 Sodium [Moles/Vol] 138 mmol/L 133-145 [facility] Stress Reporton 05-22-2025 Stress Report Normal [facility] Total proteinOrdered By: Orion Portillo on 05-22-2025 Protein [Mass/Vol] 6.3 g/dL 5.9-8.4 [facility] White blood cell (WBC) count Ordered By: Cameron Portillo on 05-22-2025 WBC (Bld) [#/Vol] 3.9 10*3/uL Low 4.4-11.0 [facility] 12 Lead EKGon 05-21-2025 12 Lead EKG Normal [facility] 12 Lead EKG Normal [facility] 12 Lead EKG Normal [facility] 12 Lead EKG Normal [facility] Absolute lymphocyte countOrd ered By: Veena Nelson on 05-21-2025 Lymphocytes Auto (Unsp spec) [#/Vol] 0.72 10*3/uL Low 0.83-4.51 [facility] Absolute neutrophil countOrd ered By: Veena Nelson on 05-21-2025 Neutrophils (Bld) [#/Vol] 3.3 10*3/uL 2.0-7.7 [facility] Activated partial thrombopla stin time (aPTT) in platelet poor plasma by coagulation aOrdered By: Veena Nelson on 05-21-2025 aPTT Coag (PPP) [Time] 45.1 s High 24.1-36.2 [facility] Anion gap in Serum or Plasma Ordered By: Veena Nelson on 05-21-2025 Anion gap [Moles/Vol] 15 mmol/L 5-15 [facility] Automated lymphocyte count a s percentage of total leukocytesOrdered By: Veena Nelson on 05-21-2025 Lymphocytes/100 WBC Auto (Unsp spec) 16.2 % Low 19-41 [facility] BUN/creatinine ratioOrdered By: Veena Neslon on 05-21-2025 Urea nitrogen/Creatinine [Mass ratio] 24.7 mg/mg High 10-20 [facility] Basic Metabolic Profile (BMP )on 05-21-2025 BUN/CRE 24.7 RATIO High 10-20 [facility] Comment on above: Performed By: #### L 501.4021, L100.0100, L501.9520, L500.2500, L501.5200 ####[facility] [address] [place], [address] Calcium [Mass/Vol] 9.2 mg/dL Normal 7.6-11.0 [facility] Comment on above: Performed By: #### L 501.4021, L100.0100, L501.9520, L500.2500, L501.5200 ####[facility] [address] [place], [address] Chloride [Moles/Vol] 104 mmol/L Normal 98-108 [facility] Comment on above: Performed By: #### L 501.4021, L100.0100, L501.9520, L500.2500, L501.5200 ####[facility] [address] [place], [address] CO2 [Moles/Vol] 21.4 mmol/L Normal 21.0-32.0 [facility] Comment on above: Performed By: #### L 501.4021, L100.0100, L501.9520, L500.2500, L501.5200 ####[facility] [address] [place], [address] Creatinine [Mass/Vol] 1.86 mg/dL High 0.70-1.20 [facility] Comment on above: Performed By: #### L 501.4021, L100.0100, L501.9520, L500.2500, L501.5200 ####[facility] [address] [place], [address] ECRCL 26.20 ml/min Low 50-250 [facility] Comment on above: Performed By: #### L 501.4021, L100.0100, L501.9520, L500.2500, L501.5200 ####[facility] [address] [place], [address] GAP 15 Normal 5-15 [facility] Comment on above: Performed By: #### L 501.4021, L100.0100, L501.9520, L500.2500, L501.5200 ####[facility] [address], [address] GFR/1.73 sq M.predicted among non-blacks MDRD (S/P/Bld) [Vol rate/Area] 35 mL/min/{1.73_m2} Low >60 [facility] Comment on above: Result Comment: mL/m in/1.73m2 CKD-EPI Creatinine Equation (2020) Performed By: #### L 501.4021, L100.0100, L501.9520, L500.2500, L501.5200 ####[facility] [address] [place], [address] Glucose [Mass/Vol] 115 mg/dL High 70-99 [facility] Comment on above: Performed By: #### L 501.4021, L100.0100, L501.9520, L500.2500, L501.5200 ####[facility] [address] [place], [address] Potassium [Moles/Vol] 4.2 mmol/L Normal 3.3-5.1 [facility] Comment on above: Performed By: #### L 501.4021, L100.0100, L501.9520, L500.2500, L501.5200 ####[facility] [address] [place], [address] Sodium [Moles/Vol] 140 mmol/L Normal 133-145 [facility] Comment on above: Performed By: #### L 501.4021, L100.0100, L501.9520, L500.2500, L501.5200 ####[facility] [address] [place], [address] Urea nitrogen [Mass/Vol] 46 mg/dL High 4-19 [facility] Comment on above: Performed By: #### L 501.4021, L100.0100, L501.9520, L500.2500, L501.5200 ####[facility] [address] [place], [address] Basophil percentageOrdered B y: Veena Godman on 05-21-2025 Basophils/100 WBC (Bld) 0.7 % 0-1 [facility] Bilirubin Test strip Ql (U)O rdered By: Cameron Portillo on 05-21-2025 Bilirubin Ql (U) Negative Negative [facility] CBC W/Diff, Automatedon 09- Absolute Neut Normal 2.0-7.7 [facility] Comment on above: Order Comment: Comme nts: If not done in prior 24 hours Result Comment: Canc elled via OM: Duplicate Order Performed By: #### L 300.3900, L100.0100 ####[facility] [address] [place], [address] HCT Normal 40-54 [facility] Comment on above: Order Comment: Comme nts: If not done in prior 24 hours Result Comment: Canc elled via OM: Duplicate Order Performed By: #### L 300.3900, L100.0100 ####[facility] [address] [place], [address] HGB Normal 13.0-16.5 [facility] Comment on above: Order Comment: Comme nts: If not done in prior 24 hours Result Comment: Canc elled via OM: Duplicate Order Performed By: #### L 300.3900, L100.0100 ####[facility] [address] [place], [address] MCH Normal 27.0-32.0 [facility] Comment on above: Order Comment: Comme nts: If not done in prior 24 hours Result Comment: Canc elled via OM: Duplicate Order Performed By: #### L 300.3900, L100.0100 ####[facility] [address] [place], [address] MCHC Normal 32-36 [facility] Comment on above: Order Comment: Comme nts: If not done in prior 24 hours Result Comment: Canc elled via OM: Duplicate Order Performed By: #### L 300.3900, L100.0100 ####[facility] [address] [place], [address] MCV Normal 80-94 [facility] Comment on above: Order Comment: Comme nts: If not done in prior 24 hours Result Comment: Canc elled via OM: Duplicate Order Performed By: #### L 300.3900, L100.0100 ####[facility] [address] [place], [address] NEUT% Normal 47-70 [facility] Comment on above: Order Comment: Comme nts: If not done in prior 24 hours Result Comment: Canc elled via OM: Duplicate Order Performed By: #### L 300.3900, L100.0100 ####[facility] [address] [place], [address] PLT Normal 150-450 [facility] Comment on above: Order Comment: Comme nts: If not done in prior 24 hours Result Comment: Canc elled via OM: Duplicate Order Performed By: #### L 300.3900, L100.0100 ####[facility] [address] [place], [address] RBC Normal 4.6-6.2 [facility] Comment on above: Order Comment: Comme nts: If not done in prior 24 hours Result Comment: Canc elled via OM: Duplicate Order Performed By: #### L 300.3900, L100.0100 ####[facility] [address] [place], [address] RDW CV Normal 11.6-14.6 [facility] Comment on above: Order Comment: Comme nts: If not done in prior 24 hours Result Comment: Canc elled via OM: Duplicate Order Performed By: #### L 300.3900, L100.0100 ####[facility] [address] [place], [address] RDW SD Normal 35.1-43.9 [facility] Comment on above: Order Comment: Comme nts: If not done in prior 24 hours Result Comment: Canc elled via OM: Duplicate Order Performed By: #### L 300.3900, L100.0100 ####[facility] [address] [place], [address] WBC Normal 4.4-11.0 [facility] Comment on above: Order Comment: Comme nts: If not done in prior 24 hours Result Comment: Canc elled via OM: Duplicate Order Performed By: #### L 300.3900, L100.0100 ####[facility] [address] [place], [address] Absolute Lymph 0.72 X10 3/uL Low 0.83-4.51 [facility] Comment on above: Performed By: #### L 501.4021, L100.0100, L501.9520, L500.2500, L501.5200 ####[facility] [address] [place], [address] Absolute Neut 3.3 X10 3/uL Normal 2.0-7.7 [facility] Comment on above: Performed By: #### L 501.4021, L100.0100, L501.9520, L500.2500, L501.5200 ####[facility] [address] [place], [address] Basophils/100 WBC (Bld) 0.7 % Normal 0-1 [facility] Comment on above: Performed By: #### L 501.4021, L100.0100, L501.9520, L500.2500, L501.5200 ####[facility] [address] [place], [address] Eosinophils/100 WBC (Bld) 3.6 % Normal 0-5 [facility] Comment on above: Performed By: #### L 501.4021, L100.0100, L501.9520, L500.2500, L501.5200 ####[facility] [address] [place], [address] Erythrocyte distribution width (RBC) [Ratio] 14.7 % High 11.6-14.6 [facility] Comment on above: Performed By: #### L 501.4021, L100.0100, L501.9520, L500.2500, L501.5200 ####[facility] [address] [place], [address] Hematocrit (Bld) [Volume fraction] 32.6 % Low 40-54 [facility] Comment on above: Performed By: #### L 501.4021, L100.0100, L501.9520, L500.2500, L501.5200 ####[facility] [address] [place], [address] Hemoglobin (Bld) [Mass/Vol] 10.5 g/dL Low 13.0-16.5 [facility] Comment on above: Performed By: #### L 501.4021, L100.0100, L501.9520, L500.2500, L501.5200 ####[facility] [address] [place], [address] IG% 0.700 Normal 0.0-0.9 [facility] Comment on above: Result Comment: IG% - Immature Granulocytes (promyelocytes, myelocytes andmetamyelocytes) > 1% indicates that a LEFT SHIFT is Present. Performed By: #### L 501.4021, L100.0100, L501.9520, L500.2500, L501.5200 ####[facility] [address] [place], [address] Lymphocytes/100 WBC (Bld) 16.2 % Low 19-41 [facility] Comment on above: Performed By: #### L 501.4021, L100.0100, L501.9520, L500.2500, L501.5200 ####[facility] [address] [place], [address] MCH (RBC) [Entitic mass] 29.3 pg Normal 27.0-32.0 [facility] Comment on above: Performed By: #### L 501.4021, L100.0100, L501.9520, L500.2500, L501.5200 ####[facility] [address] [place], [address] MCHC (RBC) [Mass/Vol] 32.2 g/dL Normal 32-36 [facility] Comment on above: Performed By: #### L 501.4021, L100.0100, L501.9520, L500.2500, L501.5200 ####[facility] [address] [place], [address] MCV (RBC) [Entitic vol] 91.1 fL Normal 80-94 [facility] Comment on above: Performed By: #### L 501.4021, L100.0100, L501.9520, L500.2500, L501.5200 ####[facility] [address] [place], [address] Monocytes/100 WBC (Bld) 5.8 % Normal 0-10 [facility] Comment on above: Performed By: #### L 501.4021, L100.0100, L501.9520, L500.2500, L501.5200 ####[facility] [address] [place], [address] Neutrophils/100 WBC (Bld) 73.0 % High 47-70 [facility] Comment on above: Performed By: #### L 501.4021, L100.0100, L501.9520, L500.2500, L501.5200 ####[facility] [address] [place], [address] Nucleated RBC (Bld) [#/Vol] 0 10*3/uL Normal 0-5 [facility] Comment on above: Performed By: #### L 501.4021, L100.0100, L501.9520, L500.2500, L501.5200 ####[facility] [address] [place], [address] Platelet mean volume (Bld) [Entitic vol] 11.2 fL Normal 6.2-12.0 [facility] Comment on above: Performed By: #### L 501.4021, L100.0100, L501.9520, L500.2500, L501.5200 ####[facility] [address] [place], [address] Platelets (Bld) [#/Vol] 92 10*3/uL Low 150-450 [facility] Comment on above: Performed By: #### L 501.4021, L100.0100, L501.9520, L500.2500, L501.5200 ####[facility] [address] [place], [address] RBC (Bld) [#/Vol] 3.58 10*6/uL Low 4.6-6.2 [facility] Comment on above: Performed By: #### L 501.4021, L100.0100, L501.9520, L500.2500, L501.5200 ####[facility] [address] [place], [address] RDW SD 49.6 fl High 35.1-43.9 [facility] Comment on above: Performed By: #### L 501.4021, L100.0100, L501.9520, L500.2500, L501.5200 ####[facility] [address] [place], [address] WBC (Bld) [#/Vol] 4.5 10*3/uL Normal 4.4-11.0 [facility] Comment on above: Performed By: #### L 501.4021, L100.0100, L501.9523, L500.2500, L501.5200 ####[facility] [address] [place], [address] Calculated very low density lipoprotein (VLDL) cholesterol measurementOrdered By: Cameron Portillo on 05-21-2025 Calculated very low density lipoprotein (VLDL) cholesterol measurement 9 mg/dL 5-40 [facility] Carbon dioxide, total [Moles /volume] in Central venous bloodOrdered By: Veena Nelson on 05-21-2025 CO2 [Moles/Vol] 21.4 mmol/L 21.0-32.0 [facility] Chest 1 View (Portable)on Chest 1 View (Portable) Normal [facility] Chloride assayOrdered By: Markell Nelson on 05-21-2025 Chloride [Moles/Vol] 104 mmol/L 98-108 [facility] Consultation - Cardiologyon 05-21-2025 Consultation - Cardiology Normal [facility] Echo Completeon 05-21-2025 Echo Complete Normal [facility] Echocardiogram study reportO rdered By: Lorraine Mcdowell on 05-21-2025 Study report [facility] [address] [place] [address] Echo Complete 05/21/25 0836 MR#: [id number] Acct: [id number] Name: LEANA CAMEJO Rep #:[id number] : 1940 85 From: Lorraine Mcdowell MD Attending Dr: Dr. Olamide Morales MD Status: ADM IN Ordering Dr: Cameron Solares DO Date: 05/21/25 Location: ICU Sex: M C Admitted: 05/21/25 Reason For Study Reason For Study: s/p [place] Procedure This was a 2D Doppler, Color Flow transthoracic echocardiogram. Myocardial strain analysis was performed in this exam to aid in the assessment of cardiac function. Exam performed portable in ICU/CCU. Left Ventricle Mildly dilated left ventricle. The global longitudinal strain = -9.5% (abnormal). The estimated ejection fraction is 40- 45 %. Right Ventricle Normal right ventricle. Normal systolic function. Atria Normal left atrium. The left atrium is mildly enlarged. Normal right atrium. Mitral Valve The mitral valve is structurally normal. No prolapse or stenosis seen. Mild (1+)mitral valve insufficiency. Tricuspid Valve Normal tricuspid valve. Aortic Valve Trisinus/trileaflet aortic valve. Pulmonic Valve The pulmonic valve is not well visualized. Great Vessels The aortic root is not well visualized. Pericardium/Pleural No pericardial effusion. MMode/2D Measurements & Calculations LVIDd: 4.8 cm IVSd: 2.1 cm LVOT diam: 2.1 cm LVIDs: 3.6 cm LVPWd: 1.5 cm LVOT area: 3.5 cm2 RVDd: 4.4 cm FS: 24.5 % Ao root diam: 3.3 cm LAV(MOD-bp): 58.6 ml LVAd ap4: 36.4 cm2 LAV(MOD-bp) Indexed: 33.5 ml/m2 LVLd ap4: 9.5 cm LAV(MOD-sp2): 48.8 ml EDV(MOD-sp4): 117.7 ml LAV(MOD-sp4): 61.5 ml EDV(sp4-el): 118.2 ml LVAs ap4: 27.6 cm2 LVLs ap4: 9.0 cm ESV(MOD-sp4): 72.1 ml ESV(sp4-el): 71.6 ml EF(MOD-sp4): 38.8 % EF(sp4-el): 39.4 % ___ SV(MOD-sp4): 45.6 ml SV(sp4-el): 46.6 ml Aortic Valve Planimetry: 1.9 cm2 SI(MOD-sp4): 26.1 ml/m2 __ LA A4 area: 21.6 cm2 LA dimension(2D): 4.5 cm RA A4area: 18.0 cm2 Time Measurements MV dec time: 0.19 sec Doppler Measurements & Calculations MV E max erin: 94.4 cm/sec Lat Peak E' Erin: 11.6 cm/sec Med Peak E' Erin: 5.7 cm/sec MV A max erin: 70.1 cm/sec E/E' lat: 8.1 E/E' med: 16.6 MV E/A: 1.3 MV V2 max: 101.9 cm/sec MV P1/2t max erin: 103.9 cm/sec Ao V2 max: 169.7 cm/sec MV max P.2 mmHg MV P1/2t: 65.6 msec Ao max P.5 mmHg MV V2 mean: 60.4 cm/sec Ao V2 mean: 121.3 cm/sec MV mean P.7 mmHg MV dec slope: 463.4 cm/sec2 Ao mean P.6 mmHg MV V2 VTI: 31.9 cm MVA(P1/2t): 3.4 cm2 Ao V2 VTI: 36.3 cm AV (velocity ratio): 0.50 MVA(VTI): 2.0 cm2 FRANCIS(I,D): 1.7 cm2 FRANCIS(V,D): 1.8 cm2 __ LV V1 max: 85.6 cm/sec SV(LVOT): 63.5 ml TR max erin: 289.2 cm/sec LV V1 max P.9 mmHg TR max P.5 mmHg LV V1 mean P.8 mmHg LV V1 mean: 64.7 cm/sec LV V1 VTI: 18.2 cm ECHO/Echo Complete Interpretation Summary The estimated ejection fraction is 40-45 %. Inferior hypokinesia Mild MR In comparison to previous echocardiogram reduced LV systolic function with EF moderate. No pericardial effusion Ordering Physician: Cameron Solares Performed By: Forrest Luis RCS 05/21/25 1204 Date _ Lorraine Mcdowell MD CC: Dr. Cameron Solares DO; Dr. Olamide Morales MD; Dr. Dallas Reed MD ~ Date Dictated: 05/21/25 0836 Date Transcribed: 05/21/25 1204 English Lecturer: Signed [facility] Work Phone: Emergency Department Summary on 05-21-2025 Emergency Department Summary Normal [facility] Eosinophil percentageOrdered By: Veena Nelson on 05-21-2025 Eosinophils/100 WBC (Bld) 3.6 % 0-5 [facility] Erythrocyte distribution wid th ratioOrdered By: Veena Nelson on 05-21-2025 Erythrocyte distribution width (RBC) [Ratio] 14.7 % High 11.6-14.6 [facility] Erythrocyte distribution wid th standard deviationOrdered By: Veena Nelson on 05-21-2025 Erythrocyte distribution width (RBC) [Ratio] 49.6 fl High 35.1-43.9 [facility] Free T3on 05-21-2025 Free T3 [Mass/Vol] 2.2 pg/mL Normal 2.18-3.98 [facility] Comment on above: Performed By: #### L 501.64210 ####[facility] [address] [place], [address] Free A7Sftmumu By: Cameron sibley on 05-21-2025 Free T3 [Mass/Vol] 2.2 pg/mL 2.18-3.98 [facility] Glomerular filtration rate ( GFR) estimation/1.73 sq m using serum, plasma, or whole bOrdered By: Veena Nelson on 05-21-2025 GFR/1.73 sq M.predicted among non-blacks MDRD (S/P/Bld) [Vol rate/Area] 35 mL/min/{1.73_m2} Low >60 [facility] Comment on above: mL/min/1.73m2 CKD-EP I Creatinine Equation (2020) H AND P Exam - Hospitaliston 05-21-2025 H&P Exam - Hospitalist Normal [facility] Hematocrit Auto (Bld) [Volum e fraction]Ordered By: Veena Nelson on 05-21-2025 Hematocrit (Bld) [Volume fraction] 32.6 % Low 40-54 [facility] Hemoglobin measurementOrdere d By: Veena Nelson on 05-21-2025 Hemoglobin (Bld) [Mass/Vol] 10.5 g/dL Low 13.0-16.5 [facility] Immature granulocytes/100 WB C Auto (Bld)Ordered By: Veena Nelson on 05-21-2025 Immature granulocytes/100 WBC (Bld) 0.700 % 0.0-0.9 [facility] Comment on above: IG% - Immature Granu locytes (promyelocytes, myelocytes and metamyelocytes) > 1% indicates that a LEFT SHIFT is Present. International normalized rat io (INR) calculationOrdered By: Veena Nelson on 05-21-2025 INR Coag (Bld) [Relative time] 1.3 {INR} [facility] Ketones Test strip Ql (U)Ord ered By: Cameron Portillo on 05-21-2025 Ketones Ql (U) Negative Negative [facility] L501.4021on 05-21-2025 Trop T High Sen 93 ng/L Invalid Interpretation Code <=22 [facility] Comment on above: Result Comment: Crit ical Result(s) Called at 0238: by: ANUJ MCLAIN??Results read back by same. Performed By: #### L 501.4021, L100.0100, L501.9520, L500.2500, L501.5200 ####[facility] [address] [facility] [place], [place], [id number] LDL calc ser/plasOrdered By: Cameron Portillo on 05-21-2025 Cholesterol in LDL [Mass/Vol] 61 mg/dL [facility] Comment on above: Gdxuxvjabo=000-822 m g/dL & Higher Vgeu=012 mg/dL or greaterFriedwald Equation for LDL-C Lipid Profileon 05-21-2025 CHOL:HDL 2.61 Normal [facility] Comment on above: Performed By: #### L 500.4100 ####[facility] [address] [facility] [place], [place], [id number] Cholesterol [Mass/Vol] 114 mg/dL Normal <=200 [facility] Comment on above: Result Comment: Chol esterol level, Desirable <200 mg/dLBorderline high cholesterol 200-239 mg/dLHigh cholesterol >=240 mg/dLRecommendations of the NCEP Adult Treatment Panel for thefollowing risk-cutoff thresholds for the [place] Americanpopulation. Performed By: #### L 500.4100 ####[facility] [address] [place], [address] Cholesterol in LDL [Mass/Vol] 61 mg/dL Normal [facility] Comment on above: Result Comment: Bord fbsmgj=358-343 mg/dL Higher Beuf=781 mg/dL or greaterFriedwald Equation for LDL-C Performed By: #### L 500.4100 ####[facility] [address] [place], [address] MCV (mean corpuscular volume ) determinationOrdered By: Veena Nelson on 05-21-2025 MCV (RBC) [Entitic vol] 91.1 fL 80-94 [facility] Magnesiumon 05-21-2025 Magnesium [Mass/Vol] 2.1 mg/dL Normal 1.5-2.2 [facility] Comment on above: Performed By: #### L 501.4021, L100.0100, L501.9520, L500.2500, L501.5200 ####[facility] [address] [place], [address] Magnesium measurement (mass/ volume)Ordered By: Veena Nelson on 05-21-2025 Magnesium (Unsp spec) [Mass/Vol] 2.1 mg/dL 1.5-2.2 [facility] Mean corpuscular hemoglobin (MCH) determinationOrdered By: Veena Nelson on 05-21-2025 MCH (RBC) [Entitic mass] 29.3 pg 27.0-32.0 [facility] Mean corpuscular hemoglobin concentration (MCHC) determinationOrdered By: Veena Nelson on 05-21-2025 MCHC (RBC) [Mass/Vol] 32.2 g/dL 32-36 [facility] Mean platelet volume determi nationOrdered By: Veena Nelson on 05-21-2025 Platelet mean volume (Bld) [Entitic vol] 11.2 fL 6.2-12.0 [facility] Microscopic analysis of urin e for red blood cells (RBC)Ordered By: Cameron Portillo on 05-21-2025 Microscopic analysis of urine for red blood cells (RBC) 0 SEEN /hpf 0-5 [facility] Monocyte percentageOrdered B y: Veena Nelson on 05-21-2025 Monocytes/100 WBC (Bld) 5.8 % 0-10 [facility] Mucus LM Ql (Urine sed)Order ed By: Cameron Portillo on 05-21-2025 Mucus Ql (Urine sed) 0 SEEN /hpf [facility] Natriuretic peptide.B prohor mani N-Terminal [Mass/volume] in Serum or PlasmaOrdered By: Veena Nelson on 05-21-2025 Natriuretic peptide.B prohormone N-Terminal [Mass/Vol] 3942 pg/mL High <1800 [facility] Comment on above: Heart Failure Unlike ly: < 300 pg/mLHeart Failure Likely< 50 Years: > 450 pg/mL50-75 Years: > 900 pg/mL>75 Years: > 1800 pg/mL Neutrophil percentageOrdered By: Veena Nelson on 05-21-2025 Neutrophils/100 WBC (Bld) 73.0 % High 47-70 [facility] Nitrite Test strip Ql (U)Ord ered By: Cameron Portillo on 05-21-2025 Nitrite Ql (U) Negative Negative [facility] Nucleated red blood cell per centageOrdered By: Veena Nelson on 05-21-2025 Nucleated RBC/100 WBC (Bld) [Ratio] 0 % 0-5 [facility] Partial Thromboplast Timeon 05-21-2025 aPTT Coag (Bld) [Time] 65.0 s High 24.1-36.2 [facility] Comment on above: Performed By: #### L 944.3182 ####[facility] [address] [place], [address] aPTT Coag (Bld) [Time] 67.5 s High 24.1-36.2 [facility] Comment on above: Performed By: #### L 300.4310 ####[facility] [address] [place], [address] aPTT Coag (Bld) [Time] 174.5 s Invalid Interpretation Code 24.1-36.2 [facility] Comment on above: Result Comment: CRIT ICAL VALUE CALLED TO [id number]/01/25 0931 Francia Mancilla.RESULTS READ BACK BY SAME. Performed By: #### L 300.4310 ####[facility] [address] [place], [address] aPTT Coag (Bld) [Time] 45.1 s High 24.1-36.2 [facility] Comment on above: Performed By: #### L 300.3900, L300.4310 ####[facility] [address] [place], [address] Phosphoruson 05-21-2025 Phosphate [Mass/Vol] 2.5 mg/dL Low 2.7-4.5 [facility] Comment on above: Performed By: #### L 501.2300 ####[facility] [address] [place], [address] Platelet countOrdered By: Markell Nelson on 05-21-2025 Platelets (Bld) [#/Vol] 92 10*3/uL Low 150-450 [facility] Potassium measurement (mass/ volume)Ordered By: Veena Nelson on 05-21-2025 Potassium (Unsp spec) [Mass/Vol] 4.2 mmol/L 3.3-5.1 [facility] Pro- Brain NATRIURETIC PEPTI [place] 05-21-2025 Natriuretic peptide B (Bld) [Mass/Vol] 3942 pg/mL High <=1800 [facility] Comment on above: Result Comment: Hear t Failure Unlikely: < 300 pg/mLHeart Failure Likely< 50 Years: > 450 pg/mL50-75 Years: > 900 pg/mL>75 Years: > 1800 pg/mL Performed By: #### L 503.7505 ####[facility] [address] [place], [address] Protein Test strip Ql (U)Ord ered By: Cameron Portillo on 05-21-2025 Protein Ql (U) 15 mg/dl High Negative [facility] Prothrombin Time w/INRon INR Normal [facility] Comment on above: Order Comment: Comme nts: If not done in prior 24 hours Result Comment: Canc elled via OM: Duplicate Order Performed By: #### L 300.3900, L100.0100 ####[facility] [address] [place], [address] PROTIME Normal 11.7-14.9 [facility] Comment on above: Order Comment: Comme nts: If not done in prior 24 hours Result Comment: Canc elled via OM: Duplicate Order Performed By: #### L 300.3900, L100.0100 ####[facility] [address] [place], [address] INR Coag (PPP) [Relative time] 1.3 {INR} Normal [facility] Comment on above: Performed By: #### L 300.3900, L300.4310 ####[facility] [address] [place], [address] PT Coag (PPP) [Time] 16.0 s High 11.7-14.9 [facility] Comment on above: Performed By: #### L 300.3900, L300.4310 ####[facility] [address] [place], [address] Prothrombin timeOrdered By: Veena Nelson on 05-21-2025 PT Coag (PPP) [Time] 16.0 s High 11.7-14.9 [facility] RBC Auto (Bld) [#/Vol]Ordere d By: Veena Nelson on 05-21-2025 RBC (Bld) [#/Vol] 3.58 10*6/uL Low 4.6-6.2 [facility] Screening total cholesterol/ high density lipoprotein (HDL) cholesterol ratioOrdered By: Cameron Portillo on 05-21-2025 Cholesterol.total/Cho lesterol in HDL [Mass ratio] 2.61 {ratio} [facility] Serum creatinine measurement (mass/volume)Ordered By: Veena Nelson on 05-21-2025 Creatinine [Mass/Vol] 1.86 mg/dL High 0.70-1.20 [facility] Serum glucose measurement (m ass/volume)Ordered By: Veena Nelson on 05-21-2025 Glucose [Mass/Vol] 115 mg/dL High 70-99 [facility] Serum or plasma calcium jossie urement (mass/volume)Ordered By: Veena Nelson on 05-21-2025 Calcium [Mass/Vol] 9.2 mg/dL 7.6-11.0 [facility] Serum or plasma cholesterol in HDL measurement (mass/volume)Ordered By: Cameron Portillo on 05-21-2025 Cholesterol in HDL [Mass/Vol] 44 mg/dL >40 [facility] Comment on above: National Cholesterol Education Program (NCEP) guidelines:<40 mg/dL: Low HDL-cholesterol (major risk factor for CHD)>= 60 mg/dL: High HDL-cholesterol (negative risk factor for CHD)HDL-cholesterol is affected by a number of factors, e.g. smoking, exercise, hormones, sex and age. Serum or plasma cholesterol measurement (mass/volume)Ordered By: Cameron Portillo on 05-21-2025 Cholesterol [Mass/Vol] 114 mg/dL <201 [facility] Comment on above: Cholesterol level, D esirable <200 mg/dLBorderline high cholesterol 200-239 mg/dLHigh cholesterol >=240 mg/dLRecommendations of the NCEP Adult Treatment Panel for the following risk-cutoff thresholds for the [place] population. Serum or plasma urea nitroge n measurement (mass/volume)Ordered By: Veena Nelson on 05-21-2025 Urea nitrogen [Mass/Vol] 46 mg/dL High 4-19 [facility] Sodium levelOrdered By: Rupert Nelson on 09-01-2025 Sodium [Moles/Vol] 140 mmol/L 133-145 [facility] Squamous epithelial cells de tection in urine sediment by light microscopyOrdered By: Cameron Portillo on 05-21-2025 Epithelial cells.squamous LM Ql (Urine sed) 0 SEEN /hpf 0-5 [facility] T4 Free Directon 05-21-2025 T4 FREE DIRECT 1.00 ng/dL Normal 0.76-1.46 [facility] Comment on above: Performed By: #### L 506.0400 ####[facility] [address] [place], [place], [id number] T4 freeOrdered By: Cameron sibley on 05-21-2025 Free T4 [Mass/Vol] 1.00 ng/dL 0.76-1.46 [facility] TSH DL <= 0.005 mIU/L QnOrde red By: Veena Nelson on 05-21-2025 TSH Qn 9.790 uIU/mL High 0.300-4.200 [facility] Thyroid Stim Hormone (TSH)on 05-21-2025 TSH 9.790 uIU/mL High 0.300-4.200 [facility] Comment on above: Performed By: #### L 501.4021, L100.0100, L501.9520, L500.2500, L501.5200 ####[facility] [address] [place], [place], [id number] Triglycerides measurementOrd ered By: Cameron Portillo on 05-21-2025 Triglyceride [Mass/Vol] 46 mg/dL <199 [facility] Comment on above: The drugs N-Acetylcy steine and Metamizole may falsely depress this assay. Normal range: <150 mg/dLBorderline High: 150-199 mg/dLHigh: 200-499 mg/dLVery High: >500 mg/dL Troponin T HS 2 HRon 025 Trop T High Sen 222 ng/L Invalid Interpretation Code <=22 [facility] Comment on above: Result Comment: CRIT ICAL VALUE CALLED TO [id number]/01/25 0429 Adryan Yan.RESULTS READ BACK BY SAME. Performed By: #### L 499.0042 ####[facility] [address] [place], [address] Troponin T HS 4 HRon 025 Trop T High Sen 671 ng/L Invalid Interpretation Code <=22 [facility] Comment on above: Result Comment: Crit ical Result(s) Called at 05/21/2025-07:29 by Haider Garrison.??Results read back by same. Performed By: #### L 499.0043 ####[facility] [address] [place], [address] Troponin T.cardiac [Mass/vol ume] in Serum or Plasma by High sensitivity methodOrdered By: Veena Nelson on 05-21-2025 Troponin T.cardiac High sensitivity method [Mass/Vol] 671 ng/L Critically high <22 [facility] Comment on above: Critical Result(s) C alled at 05/21/2025-07:29 by Haider Garrison. Results read back by same. Troponin T.cardiac High sensitivity method [Mass/Vol] 222 ng/L Critically high <22 [facility] Comment on above: CRITICAL VALUE CONTRERAS D TO [id number]/01/25 0429 Adryan Yan.RESULTS READ BACK BY SAME. Troponin T.cardiac High sensitivity method [Mass/Vol] 93 ng/L Critically high <22 [facility] Comment on above: Critical Result(s) C alled at 0238: by: ANUJ TO [facility] Results read back by same. Urinalysis, Completeon 05-21 BACTERIA 0 SEEN Normal None Seen [facility] Comment on above: Order Comment: CLEAN CATCH Performed By: #### L 400.0001 ####[facility] [address] [place], [address] EPI,SQUAMOUS 0 SEEN Normal 0-5 [facility] Comment on above: Order Comment: CLEAN CATCH Performed By: #### L 400.0001 ####[facility] [address] [place], [address] Mucus Ql (Urine sed) 0 SEEN Normal [facility] Comment on above: Order Comment: CLEAN CATCH Performed By: #### L 400.0001 ####[facility] [address] [place], [address] RBC 0 SEEN Normal 0-5 [facility] Comment on above: Order Comment: CLEAN CATCH Performed By: #### L 400.0001 ####[facility] [address] [place], [address] WBC 0 SEEN Normal 0-5 [facility] Comment on above: Order Comment: CLEAN CATCH Performed By: #### L 400.0001 ####[facility] [address] [place], [place], [address] Urine clarityOrdered By: Orion Portillo on 05-21-2025 Clarity (U) Clear Clear [facility] Urine color determinationOrd ered By: Cameron Portillo on 05-21-2025 Color (U) Yellow Yellow [facility] Urine glucose detectionOrder ed By: Cameron Portillo on 05-21-2025 Glucose Ql (U) Normal mg/dl Normal [facility] Urine leukocyte esterase det ection by dipstickOrdered By: Cameron Portillo on 05-21-2025 Leukocyte esterase Test strip Ql (U) Negative Negative [facility] Urine pHOrdered By: Cameron santillan on 05-21-2025 pH (U) 7.0 [pH] 5.0 - 8.0 [facility] Urine sediment bacteria coun t by microscopy (number/high power field)Ordered By: Cameron Portillo on 05-21-2025 Bacteria LM.HPF (Urine sed) [#/Area] 0 /[HPF] None Seen [facility] Urine specific gravity measu rementOrdered By: Cameron Portillo on 05-21-2025 Specific gravity (U) [Rel density] 1.010 1.002-1.030 [facility] Urine urobilinogen measureme ntOrdered By: Cameron Portillo on 05-21-2025 Urobilinogen Ql (U) Normal mg/dl Normal [facility] White blood cell (WBC) count Ordered By: Veena Nelson on 05-21-2025 WBC (Bld) [#/Vol] 4.5 10*3/uL 4.4-11.0 [facility] White blood cell countOrdere d By: Cameron Portillo on 05-21-2025 White blood cell count 0 SEEN /hpf 0-5 [facility] CBC W Auto Differential pane l (Bld)on 05-18-2025 Basophils (Bld) [#/Vol] 0.04 10*3/uL [facility] Basophils/100 WBC (Bld) 0.9 % [facility] Differential cell count method Nom (Bld) Auto [facility] Eosinophils (Bld) [#/Vol] 0.19 10*3/uL [facility] Eosinophils/100 WBC (Bld) 4.1 % [facility] Erythrocyte distribution width (RBC) [Ratio] 14.9 % 11.5 - 15.0 % [facility] Hematocrit (Bld) [Volume fraction] 34.6 % Low 39.0 - 51.0 % [facility] Hemoglobin (Bld) [Mass/Vol] 11.0 g/dL Low 13.0 - 17.0 g/dL [facility] Immature granulocytes (Bld) [#/Vol] [facility] Immature granulocytes/100 WBC (Bld) 0.2 % [facility] Interpretation and review of laboratory results Abnormal [facility] Lymphocytes (Bld) [#/Vol] 1.04 10*3/uL [facility] Lymphocytes/100 WBC (Bld) 22.2 % [facility] MCH (RBC) [Entitic mass] 29.8 pg 26.0 - 34.0 pg [facility] MCHC (RBC) [Mass/Vol] 31.8 g/dL 30.5 - 36.0 g/dL [facility] MCV (RBC) [Entitic vol] 93.8 fL 80.0 - 100.0 fL [facility] Monocytes (Bld) [#/Vol] 0.53 10*3/uL [facility] Monocytes/100 WBC (Bld) 11.3 % [facility] Neutrophils (Bld) [#/Vol] 2.87 10*3/uL [facility] Neutrophils/100 WBC (Bld) 61.3 % [facility] Nucleated RBC (Bld) [#/Vol] NINF [facility] Nucleated RBC/100 WBC (Bld) [Ratio] 0.0 % /100 WBC [facility] Platelet mean volume (Bld) [Entitic vol] 12.6 fL 9.0 - 12.7 fL [facility] Platelets (Bld) [#/Vol] 73 10*3/uL Low [facility] Comment on above: No clot detected. RBC (Bld) [#/Vol] 3.69 10*6/uL Low 4.20 - 6.0 0 m/uL [facility] WBC (Bld) [#/Vol] 4.68 10*3/uL [facility] Basophils (Bld) [#/Vol] 0.04 10*3/uL Normal <0.11 [facility] Comment on above: Order Comment: Speci men Type: BLOOD SPECIMENOrdering Facility: [facility] Address: [address] [place] [address] Performed By: #### 5 7021-8 ####[facility] LABCLIA [id number] [place] [address] [place] Basophils/100 WBC (Bld) 0.9 % Normal [facility] Comment on above: Order Comment: Speci men Type: BLOOD SPECIMENOrdering Facility: [facility] Address: [address] [place] [address] Performed By: #### 5 7021-8 ####[facility] LABCLIA [id number] [place] [address] [place] Differential cell count method Nom (Bld) Auto Normal [facility] Comment on above: Order Comment: Speci men Type: BLOOD SPECIMENOrdering Facility: [facility] Address: [address] [place] [address] Performed By: #### 5 7021-8 ####[facility] LABCLIA [id number] [place] [address] [place] Eosinophils (Bld) [#/Vol] 0.19 10*3/uL Normal <0.46 [facility] Comment on above: Order Comment: Speci men Type: BLOOD SPECIMENOrdering Facility: [facility] Address: [address] [place] [address] Performed By: #### 5 7021-8 ####[facility] LABCLIA [id number] [address] [address] [place] Eosinophils/100 WBC (Bld) 4.1 % Normal [facility] Comment on above: Order Comment: Speci men Type: BLOOD SPECIMENOrdering Facility: [facility] Address: [address] [place] [address] Performed By: #### 5 7021-8 ####[facility] LABCLIA [id number] [place] [address] [place] Erythrocyte distribution width (RBC) [Ratio] 14.9 % Normal 11.5-15.0 [facility] Comment on above: Order Comment: Speci men Type: BLOOD SPECIMENOrdering Facility: [facility] Address: [address] [place] [address] Performed By: #### 5 7021-8 ####[facility] LABCLIA [id number] [place] [address] [place] Hematocrit (Bld) [Volume fraction] 34.6 % Low 39.0-51.0 [facility] Comment on above: Order Comment: Speci men Type: BLOOD SPECIMENOrdering Facility: [facility] Address: [address] [place] [address] Performed By: #### 5 7021-8 ####[facility] LABCLIA [id number] [address] [address] [place] Hemoglobin (Bld) [Mass/Vol] 11.0 g/dL Low 13.0-17.0 [facility] Comment on above: Order Comment: Speci men Type: BLOOD SPECIMENOrdering Facility: [facility] Address: [address] [place] [address] Performed By: #### 5 7021-8 ####[facility] LABCLIA [id number] [address] [place] [address] [place] Immature granulocytes (Bld) [#/Vol] 10*3/uL Normal <0.10 [facility] Comment on above: Order Comment: Speci men Type: BLOOD SPECIMENOrdering Facility: [facility] Address: [address] [place] [address] Performed By: #### 5 7021-8 ####[facility] LABCLIA [id number] [facility] [address] [place] [address] [place] Immature granulocytes/100 WBC (Bld) 0.2 % Normal [facility] Comment on above: Order Comment: Speci men Type: BLOOD SPECIMENOrdering Facility: [facility] Address: [address] [place] [address] Performed By: #### 5 7021-8 ####[facility] LABCLIA [id number] [address], [place] [address] [place] Lymphocytes (Bld) [#/Vol] 1.04 10*3/uL Normal 1.00-4.00 [facility] Comment on above: Order Comment: Speci men Type: BLOOD SPECIMENOrdering Facility: [facility] Address: [address] [place] [address] Performed By: #### 5 7021-8 ####[facility] LABCLIA [id number] [address], [facility] [place] Lymphocytes/100 WBC (Bld) 22.2 % Normal [facility] Comment on above: Order Comment: Speci men Type: BLOOD SPECIMENOrdering Facility: [facility] Address: [address] [place] [address] Performed By: #### 5 7021-8 ####[facility] LABCLIA [id number] [address] [place] [address] [place] MCH (RBC) [Entitic mass] 29.8 pg Normal 26.0-34.0 [facility] Comment on above: Order Comment: Speci men Type: BLOOD SPECIMENOrdering Facility: [facility] Address: [address] [place] [address] Performed By: #### 5 7021-8 ####[facility] LABCLIA [id number] [place] [address] [place] MCHC (RBC) [Mass/Vol] 31.8 g/dL Normal 30.5-36.0 [facility] Comment on above: Order Comment: Speci men Type: BLOOD SPECIMENOrdering Facility: [facility] Address: [address] [place] [address] Performed By: #### 5 7021-8 ####[facility] LABIA [id number] [place] [address] [place] MCV (RBC) [Entitic vol] 93.8 fL Normal 80.0-100.0 [facility] Comment on above: Order Comment: Speci men Type: BLOOD SPECIMENOrdering Facility: [facility] Address: [address] [place] [address] Performed By: #### 5 7021-8 ####[facility] LABIA [id number] [place] [address] [place] Monocytes (Bld) [#/Vol] 0.53 10*3/uL Normal <0.87 [facility] Comment on above: Order Comment: Speci men Type: BLOOD SPECIMENOrdering Facility: [facility] Address: [address] [place] [address] Performed By: #### 5 7021-8 ####[facility] LABIA [id number] [place] [address] [place] Monocytes/100 WBC (Bld) 11.3 % Normal [facility] Comment on above: Order Comment: Speci men Type: BLOOD SPECIMENOrdering Facility: [facility] Address: [address] [place] [address] Performed By: #### 5 7021-8 ####[facility] LABCLIA [id number] [address] [address] [place] Neutrophils (Bld) [#/Vol] 2.87 10*3/uL Normal 1.45-7.50 [facility] Comment on above: Order Comment: Speci men Type: BLOOD SPECIMENOrdering Facility: [facility] Address: [address] [place] [address] Performed By: #### 5 7021-8 ####[facility] LABCLIA [id number] [place] [address] [place] Neutrophils/100 WBC (Bld) 61.3 % Normal [facility] Comment on above: Order Comment: Speci men Type: BLOOD SPECIMENOrdering Facility: [facility] Address: [address] [place] [address] Performed By: #### 5 7021-8 ####[facility] [facility] LABCLIA [id number] [place] [address] [place] Nucleated RBC (Bld) [#/Vol] 10*3/uL Normal <0.01 [facility] Comment on above: Order Comment: Speci men Type: BLOOD SPECIMENOrdering Facility: [facility] Address: [address] [place] [address] Performed By: #### 5 7021-8 ####[facility] LABCLIA [id number] [place] [address] [place] Nucleated RBC/100 WBC (Bld) [Ratio] 0.0 /100 WBC Normal [facility] Comment on above: Order Comment: Speci men Type: BLOOD SPECIMENOrdering Facility: [facility] Address: [address] [place] [address] Performed By: #### 5 7021-8 ####[facility] LABCLIA [id number] [place] [address] [place] Platelet mean volume (Bld) [Entitic vol] 12.6 fL Normal 9.0-12.7 [facility] Comment on above: Order Comment: Speci men Type: BLOOD SPECIMENOrdering Facility: [facility] Address: [address] [place] [address] Performed By: #### 5 7021-8 ####[facility] LABCLIA [id number] [place] [address] [place] Platelets (Bld) [#/Vol] 73 10*3/uL Low 150-400 [facility] Comment on above: Order Comment: Speci men Type: BLOOD SPECIMENOrdering Facility: [facility] Address: [address] [place] [address] Result Comment: No c lot detected. Performed By: #### 5 7021-8 ####[facility] LABCLIA [id number] [place] [address] [place] RBC (Bld) [#/Vol] 3.69 10*6/uL Low 4.20-6.00 [facility] Comment on above: Order Comment: Speci men Type: BLOOD SPECIMENOrdering Facility: [facility] Address: [address] [place] [address] Performed By: #### 5 7021-8 ####[facility] LABIA [id number] [place] [address] [place] WBC (Bld) [#/Vol] 4.68 10*3/uL Normal 3.70-11.00 [facility] Comment on above: Order Comment: Speci men Type: BLOOD SPECIMENOrdering Facility: [facility] Address: [address] [place] [address] Performed By: #### 5 7021-8 ####[facility] LABIA [id number] [place] [address] [place] CNOVon 05-18-2025 CNOV Normal [facility] Ferritin SerPl-mCncon 2024 Ferritin [Mass/Vol] 384.0 ng/mL Normal 30.3-565.7 [facility] Comment on above: Order Comment: Speci men Type: BLOOD SPECIMENOrdering Facility: [facility] Address: [address] [place] [address] Performed By: #### 2 276-4, 3016-3, 82446-4 ####[facility] LABCLIA [id number] [place] [address] [place] Folate SerPl-mCncon 05-18-20 25 Folate [Mass/Vol] 13.6 ng/mL Normal >4.7 [facility] Comment on above: Order Comment: Speci men Type: BLOOD SPECIMENOrdering Facility: [facility] Address: [address] [place] [address] Performed By: #### 2 132-9, 2284-8 ####[facility] LABCLIA [id number] [place] [address] [place] Iron and Iron binding capaci ty panelon 05-18-2025 Iron [Mass/Vol] 76 ug/dL Normal 41-186 [facility] Comment on above: Order Comment: Speci men Type: BLOOD SPECIMENOrdering Facility: [facility] Address: [address] [place] [address] Performed By: #### 2 276-4, 3016-3, 27413-4 ####[facility] LABCLIA [id number] [place] [address] [place] Iron binding capacity [Mass/Vol] 297 ug/dL Normal 232-386 [facility] Comment on above: Order Comment: Speci men Type: BLOOD SPECIMENOrdering Facility: [facility] Address: [address] [place] [address] Performed By: #### 2 276-4, 3016-3, 69713-2 ####[facility] LABCLIA [id number] [address] [address] [place] Iron/TIBC [Molar ratio] 25.6 % Normal 15.0-57.0 [facility] Comment on above: Order Comment: Speci men Type: BLOOD SPECIMENOrdering Facility: [facility] Address: [address] [place] [address] Performed By: #### 2 276-4, 3016-3, 39241-2 ####[facility] LABCLIA [id number] [place] [address] [place] TSH SerPl-aCncon 05-18-2025 TSH Qn 9.500 m[IU]/L High 0.270-4.200 [facility] Comment on above: Order Comment: Speci men Type: BLOOD SPECIMENOrdering Facility: [facility] Address: [address] [place] [address] Performed By: #### 2 276-4, 3016-3, 44725-0 ####[facility] LABCLIA [id number] [place] [address] [place] Vit B12 SerPl-mCncon 025 Cobalamin (Vitamin B12) [Mass/Vol] 1891 pg/mL High 232-1245 [facility] Comment on above: Order Comment: Speci men Type: BLOOD SPECIMENOrdering Facility: [facility] Address: [address] [place] [address] Performed By: #### 2 132-9, 2284-8 ####[facility] LABIA [id number] [place] [address] [place] Anion gap in Serum or Plasma Ordered By: Mike Jay on 05-10-2025 Anion gap [Moles/Vol] 11 mmol/L 5-15 [facility] BUN/creatinine ratioOrdered By: Mike Jay on 05-10-2025 Urea nitrogen/Creatinine [Mass ratio] 27.0 mg/mg High 07-09 [facility] Basic Metabolic Profile (BMP )on 05-10-2025 BUN/CRE 27.0 RATIO High 07-09 [facility] Comment on above: Order Comment: SEND CRE TO Performed By: #### L 503.7505, L501.5200, L500.2500 ####[facility] [address] [place], [address] Calcium [Mass/Vol] 9.1 mg/dL Normal 7.6-11.0 [facility] Comment on above: Order Comment: SEND CRE TO Performed By: #### L 503.7505, L501.5200, L500.2500 ####[facility] [address] [place], [address] Chloride [Moles/Vol] 101 mmol/L Normal 98-108 [facility] Comment on above: Order Comment: SEND CRE TO Performed By: #### L 503.7505, L501.5200, L500.2500 ####[facility] [address] [place], [address] CO2 [Moles/Vol] 26.1 mmol/L Normal 21.0-32.0 [facility] Comment on above: Order Comment: SEND CRE TO Performed By: #### L 503.7505, L501.5200, L500.2500 ####[facility] [address] [place], [address] Creatinine [Mass/Vol] 1.53 mg/dL High 0.70-1.20 [facility] Comment on above: Order Comment: SEND CRE TO Performed By: #### L 503.7505, L501.5200, L500.2500 ####[facility] [address] [place], [address] GAP 11 Normal 5-15 [facility] Comment on above: Order Comment: SEND CRE TO Performed By: #### L 503.7505, L501.5200, L500.2500 ####[facility] [address] [place], [address] GFR/1.73 sq M.predicted among non-blacks MDRD (S/P/Bld) [Vol rate/Area] 44 mL/min/{1.73_m2} Low >60 [facility] Comment on above: Order Comment: SEND CRE TO Result Comment: mL/m in/1.73m2 CKD-EPI Creatinine Equation (2020) Performed By: #### L 503.7505, L501.5200, L500.2500 ####[facility] [address] [place], [address] Glucose [Mass/Vol] 98 mg/dL Normal 70-99 [facility] Comment on above: Order Comment: SEND CRE TO Performed By: #### L 503.7505, L501.5200, L500.2500 ####[facility] [address] [place], [address] Potassium [Moles/Vol] 4.1 mmol/L Normal 3.3-5.1 [facility] Comment on above: Order Comment: SEND CRE TO Performed By: #### L 503.7505, L501.5200, L500.2500 ####[facility] [address] [place], [address] Sodium [Moles/Vol] 138 mmol/L Normal 133-145 [facility] Comment on above: Order Comment: SEND CRE TO Performed By: #### L 503.7505, L501.5200, L500.2500 ####[facility] [address] [place], [address] Urea nitrogen [Mass/Vol] 41 mg/dL High 4-19 [facility] Comment on above: Order Comment: SEND CRE TO Performed By: #### L 503.7505, L501.5200, L500.2500 ####[facility] [address] [place], [address] Carbon dioxide, total [Moles /volume] in Central venous bloodOrdered By: Mike Jay on 05-10-2025 CO2 [Moles/Vol] 26.1 mmol/L 21.0-32.0 [facility] Cardiology Visit Reporton Cardiology Visit Report Normal [facility] Chloride assayOrdered By: Keily Jay on 05-10-2025 Chloride [Moles/Vol] 101 mmol/L 98-108 [facility] Glomerular filtration rate ( GFR) estimation/1.73 sq m using serum, plasma, or whole bOrdered By: Mike Jay on 05-10-2025 GFR/1.73 sq M.predicted among non-blacks MDRD (S/P/Bld) [Vol rate/Area] 44 mL/min/{1.73_m2} Low >60 [facility] Comment on above: mL/min/1.73m2 CKD-EP I Creatinine Equation (2020) Magnesiumon 05-10-2025 Magnesium [Mass/Vol] 2.3 mg/dL High 1.5-2.2 [facility] Comment on above: Order Comment: SEND CRE TO Performed By: #### L 503.7505, L501.5200, L500.2500 ####[facility] [address] [place], [address] Magnesium measurement (mass/ volume)Ordered By: Mike Jay on 05-10-2025 Magnesium (Unsp spec) [Mass/Vol] 2.3 mg/dL High 1.5-2.2 [facility] Natriuretic peptide.B prohor mani N-Terminal [Mass/volume] in Serum or PlasmaOrdered By: Mike Jay on 05-10-2025 Natriuretic peptide.B prohormone N-Terminal [Mass/Vol] 5468 pg/mL High <1800 [facility] Comment on above: Heart Failure Unlike ly: < 300 pg/mLHeart Failure Likely< 50 Years: > 450 pg/mL50-75 Years: > 900 pg/mL>75 Years: > 1800 pg/mL Potassium measurement (mass/ volume)Ordered By: Mike Jay on 05-10-2025 Potassium (Unsp spec) [Mass/Vol] 4.1 mmol/L 3.3-5.1 [facility] Pro- Brain NATRIURETIC PEPTI [place] 05-10-2025 Natriuretic peptide B (Bld) [Mass/Vol] 5468 pg/mL High <=1800 [facility] Comment on above: Order Comment: SEND CRE TO Result Comment: Hear t Failure Unlikely: < 300 pg/mLHeart Failure Likely< 50 Years: > 450 pg/mL50-75 Years: > 900 pg/mL>75 Years: > 1800 pg/mL Performed By: #### L 503.7505, L501.5200, L500.2500 ####[facility] [address] [place], [address] Serum Creatinine AND GFRon 0 05-10-2025 CREAT,SERUM Normal 0.70-1.20 [facility] Comment on above: Result Comment: OVER LAPPING TEST Performed By: #### L 501.1105 ####[facility] [address] [place], [address] eGFR Normal >60 [facility] Comment on above: Result Comment: OVER LAPPING TEST Performed By: #### L 501.1105 ####[facility] [address] [place], [address] Serum creatinine measurement (mass/volume)Ordered By: Mike Jay on 05-10-2025 Creatinine [Mass/Vol] 1.53 mg/dL High 0.70-1.20 [facility] Serum glucose measurement (m ass/volume)Ordered By: Miek Jay on 05-10-2025 Glucose [Mass/Vol] 98 mg/dL 70-99 [facility] Serum or plasma calcium jossie urement (mass/volume)Ordered By: Mike Jay on 05-10-2025 Calcium [Mass/Vol] 9.1 mg/dL 7.6-11.0 [facility] Serum or plasma urea nitroge n measurement (mass/volume)Ordered By: Mike Jay on 05-10-2025 Urea nitrogen [Mass/Vol] 41 mg/dL High 4-19 [facility] Sodium levelOrdered By: Mike Jay on 05-10-2025 Sodium [Moles/Vol] 138 mmol/L 133-145 [facility] CTA Abd/Pelvis W/WO Contrast on 04-30-2025 CTA Abd/Pelvis W/WO Contrast Normal [facility] MR/BMS.BVSon 04-18-2025 MR/BMS.BVS Normal [facility] CNPTOUTREACHon 04-03-2025 CNPTOUTREACH Normal [facility] CNPTOUTREACHon 03-20-2025 CNPTOUTREACH Normal [facility] 36on 03-19-2025 36 Spoke with patient [...] would like to have this done at [facility] as it is much closer to home. I stated we will fax order to [place] and work to schedule imaging there. Patient expressed understanding and thanked me for calling. Normal [facility] BASIC METABOLIC PANELon 02-19 Anion gap [Moles/Vol] 8 mmol/L Normal 3-13 [facility] Comment on above: Performed By: #### L AB15 #### Analytics Consultant: GUIDO JACOB ([phone]) [facility] ([facility]) [address] [place] [address] Calcium [Mass/Vol] 9.1 mg/dL Normal 8.8-10.0 [facility] Comment on above: Performed By: #### L AB15 #### Analytics Consultant: GUIDO JACOB ([phone]) [facility] ([facility] [address] [place] [address] [place] Chloride [Moles/Vol] 103 mmol/L Normal 98-107 [facility] Comment on above: Performed By: #### L AB15 #### Analytics Consultant: GUIDO JACOB ([phone]) [facility] ([facility]) [address] [place] [address] CO2 [Moles/Vol] 26 mmol/L Normal 23-31 [facility] Comment on above: Performed By: #### L AB15 #### Analytics Consultant: GUIDO JACOB ([phone]) [facility] ([facility]) [address] [place] [address] Creatinine [Mass/Vol] 1.72 mg/dL High 0.72-1.25 [facility] Comment on above: Performed By: #### L AB15 #### Analytics Consultant: GUIDO JACOB ([phone]) [facility] ([facility]) [address] [place] [address] [place] GLOMERULAR FILTRATION RATE ML/MIN/1.73 SQ M.PREDICTED 38.5 mL/min/1.73m*2 Low >60.0 [facility] Comment on above: Result Comment: Calc ulation based on the Chronic Kidney Disease Epidemiology Collaboration (CKD-EPI) equation refit without adjustment for race Performed By: #### L AB15 #### Analytics Consultant: GUIDO JACOB ([phone]) [facility] ([facility]) [address] [place] [address] [place] Glucose [Mass/Vol] 108 mg/dL Normal 82-115 [facility] Comment on above: Performed By: #### L AB15 #### Analytics Consultant: GUIDO JACOB ([phone]) [facility]) [address] [place] [address] Potassium [Moles/Vol] 4.0 mmol/L Normal 3.5-5.1 [facility] Comment on above: Result Comment: [facility] potassium values may be up to 0.5 mmol/L lower than serum values. Performed By: #### L AB15 #### Analytics Consultant: GUIDO JACOB ([phone]) [facility] ([facility] [address] [place] [address] [place] Sodium [Moles/Vol] 137 mmol/L Normal 136-145 [facility] Comment on above: Performed By: #### L AB15 #### Analytics Consultant: GUIDO JACOB ([phone]) [facility] [address] [place] [address] [place] Urea nitrogen [Mass/Vol] 49 mg/dL High 9-23 [facility] Comment on above: Performed By: #### L AB15 #### Analytics Consultant: GUIDO JACOB ([phone]) [facility] [address] [place] [address] Basic metabolic 1998 panelon 03-16-2025 Anion gap [Moles/Vol] 8 mmol/L 3 - 13 mmol/L [facility] Calcium [Mass/Vol] 9.1 mg/dL 8.8 - 10. 0 mg/dL [facility] Chloride [Moles/Vol] 103 mmol/L 98 - 10 7 mmol/L [facility] CO2 [Moles/Vol] 26 mmol/L 23 - 31 mmol/L [facility] Creatinine [Mass/Vol] 1.72 mg/dL High 0.72 - 1.25 mg/dL [facility] GFR/1.73 sq M.predicted (S/P/Bld) [Vol rate/Area] 38.5 mL/min Low - PINF [facility] Comment on above: Calculation based on the Chronic Kidney Disease Epidemiology Collaboration (CKD-EPI) equation refit without adjustment for race Glucose [Mass/Vol] 108 mg/dL 82 - 115 mg/dL [facility] Interpretation and review of laboratory results Abnormal [facility] Potassium [Moles/Vol] 4 mmol/L 3.5 - 5.1 mmol/L [facility] Comment on above: Plasma potassium cynthia ues may be up to 0.5 mmol/L lower than serum values. Sodium [Moles/Vol] 137 mmol/L 136 - 145 mmol/L [facility] Urea nitrogen [Mass/Vol] 49 mg/dL High 9 - 23 mg/dL [facility] CBC (HEMOGRAM)on 03-16-2025 Erythrocyte distribution width (RBC) [Ratio] 14.9 % Normal 11.5-15.0 [facility] Comment on above: Performed By: #### L AB294 #### Analytics Consultant: GUIDO JACOB ([id number]) [facility] ([facility]) [address] [place] [address] Hematocrit (Bld) [Volume fraction] 31.7 % Low 40.0-52.0 [facility] Comment on above: Performed By: #### L AB294 #### Analytics Consultant: GUIDO JACOB ([phone]) [facility] ([facility]) [address] [place] [address] Hemoglobin (Bld) [Mass/Vol] 10.2 g/dL Low 13.0-18.0 [facility] Comment on above: Performed By: #### L AB294 #### Analytics Consultant: GUIDO JACOB ([id number]) [facility] ([facility]) [address] [place] [address] IPF 3 Normal [facility] Comment on above: Performed By: #### L AB294 #### Analytics Consultant: GUIDO JACOB ([phone]) [facility] ([facility]) [address] [place] [address] MCH (RBC) [Entitic mass] 29.9 pg Normal 26.0-34.0 [facility] Comment on above: Performed By: #### L AB294 #### Analytics Consultant: GUIDO JACOB ([id number]) [facility] ([facility]) [address] [place] [address] MCHC 32.2 % Normal 30.5-36.0 [facility] Comment on above: Performed By: #### L AB294 #### Analytics Consultant: GUIDO JACOB ([id number]) [facility] ([facility]) [address] [place] [address] MCV (RBC) [Entitic vol] 93.0 fL Normal 77.0-99.0 [facility] Comment on above: Performed By: #### L AB294 #### Analytics Consultant: GUIDO JACOB ([phone]) [facility] ([facility]) [address] [place] [address] Platelet mean volume (Bld) [Entitic vol] 11.0 fL Normal 9.0-12.7 [facility] Comment on above: Performed By: #### L AB294 #### Analytics Consultant: GUIDO JACOB ([phone]) [facility] ([facility]) [address] [place] [address] Platelets (Bld) [#/Vol] 87 10*3/uL Low 140-440 [facility] Comment on above: Performed By: #### L AB294 #### Analytics Consultant: GUIDO JACOB ([phone]) [facility]) [address] [place] [address] RBC (Bld) [#/Vol] 3.41 10*6/uL Low 4.40-5.90 [facility] Comment on above: Performed By: #### L AB294 #### Analytics Consultant: GUIDO JACOB ([phone]) [facility] ([facility]) [address] [place] [address] WBC (Bld) [#/Vol] 4.4 10*3/uL Normal 3.6-10.7 [facility] Comment on above: Performed By: #### L AB294 #### Analytics Consultant: GUIDO JACOB ([phone]) [address] CBC panel Auto (Bld)Ordered By: Lourdes Boothe on 03-16-2025 Erythrocyte distribution width (RBC) [Ratio] 14.9 % 11.5 - 15.0 % [facility] Hematocrit (Bld) [Volume fraction] 31.7 % Low 40.0 - 52.0 % [facility] Hemoglobin (Bld) [Mass/Vol] 10.2 g/dL Low 13.0 - 18.0 g/dL [facility] Interpretation and review of laboratory results Abnormal [facility] IPF 3 [facility] MCH (RBC) [Entitic mass] 29.9 pg 26.0 - 34.0 pg [facility] MCHC (RBC) [Mass/Vol] 32.2 % 30.5 - 36.0 % [facility] MCV (RBC) [Entitic vol] 93 fL 77.0 - 99.0 fL [facility] Platelet mean volume (Bld) [Entitic vol] 11 fL 9.0 - 12.7 fL [facility] Platelets (Bld) [#/Vol] 87 10*3/uL Low 140 - 440 10*3/uL [facility] RBC (Bld) [#/Vol] 3.41 10*6/uL Low 4.40 - 5.9 0 10*6/uL [facility] WBC (Bld) [#/Vol] 4.4 10*3/uL 3.6 - 10.7 10*3/uL [facility] Laboratory - Coagulationon 0 03-16-2025 PT Coag (Bld) [Time] 12.1 s High 9.0 - 12.0 s 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 Dr. Bobo in to speak with the patient regarding procedure, and consent was obtained. Patient's lab values and allergies were reviewed. Patient was placed supine on exam table, prepped and draped in sterile fashion. Telemetry monitors were placed. Normal [facility] PROTHROMBIN TIMEon INR Coag (PPP) [Relative time] 1.1 {INR} Normal 0.9-1.1 [facility] Comment on above: Result Comment: Irving [...] Infarction Performed By: #### L AB320 #### Analytics Consultant: GUIDO JACOB ([phone]) [facility] ([facility]) [address] [place] [address] PT Coag (PPP) [Time] 12.1 s High 9.0-12.0 [facility] Comment on above: Performed By: #### L AB320 #### Analytics Consultant: GUIDO JACOB ([phone]) [facility] ([facility]) [address] [place] [address] PT Coag (Bld) [Time]on 03-16 INR Coag (PPP) [Relative time] 1.1 {INR} 0.9 - 1.1 [facility] Comment on above: Recommended Anticoag ulant [...] Interpretation and review of laboratory results Abnormal [facility] CNOVon 03-12-2025 CNOV Normal [facility] T4 Free SerPl-mCncon 025 Free T4 [Mass/Vol] 1.1 ng/dL Normal 0.9-1.7 [facility] Comment on above: Order Comment: Speci men Type: BLOOD SPECIMENOrdering Facility: [facility] Address: [address] [place] [address] Performed By: #### 3 016-3, 30212-25 ####[facility] LABCLIA [id number] [place] [address] [place] TSH SerPl-aCncon 03-12-2025 TSH Qn 11.300 m[IU]/L High 0.270-4.200 [facility] Comment on above: Order Comment: Speci men Type: BLOOD SPECIMENOrdering Facility: [facility] Address: [address] [place] [address] Performed By: #### 3 016-3, 30212-25 ####[facility] LABCLIA [id number] [place] [address] [place] OF [place] CNPTOUTREACHon 03-02-2025 CNPTOUTREACH Normal [facility] MR/BMS.BVSon 02-27-2025 MR/BMS.BVS Normal [facility] CNPTOUTREACHon 02-26-2025 CNPTOUTREACH Normal [facility] CNPTOUTREACHon 02-19-2025 CNPTOUTREACH Normal [facility] Anion gap in Serum or Plasma Ordered By: Dustin Hawk on 02-14-2025 Anion gap [Moles/Vol] 12 mmol/L 5-15 [facility] BUN/creatinine ratioOrdered By: Dustin Hawk on 02-14-2025 Urea nitrogen/Creatinine [Mass ratio] 28.6 mg/mg High 10-20 [facility] Basic Metabolic Profile (BMP )on 02-14-2025 BUN/CRE 28.6 RATIO High 10-20 [facility] Comment on above: Performed By: #### L 100.0500, L500.2500 ####[facility] [address] [place], [address] Calcium [Mass/Vol] 9.5 mg/dL Normal 7.6-11.0 [facility] Comment on above: Performed By: #### L 100.0500, L500.2500 ####[facility] [address] [place], [address] Chloride [Moles/Vol] 102 mmol/L Normal 98-108 [facility] Comment on above: Performed By: #### L 100.0500, L500.2500 ####[facility] [address] [place], [address] CO2 [Moles/Vol] 25.1 mmol/L Normal 21.0-32.0 [facility] Comment on above: Performed By: #### L 100.0500, L500.2500 ####[facility] [address] [place], [address] Creatinine [Mass/Vol] 1.73 mg/dL High 0.70-1.20 [facility] Comment on above: Performed By: #### L 100.0500, L500.2500 ####[facility] [address] [place], [address] ECRCL 29.64 ml/min Low 50-250 [facility] Comment on above: Performed By: #### L 100.0500, L500.2500 ####[facility] [address] [place], [address] GAP 12 Normal 5-15 [facility] Comment on above: Performed By: #### L 100.0500, L500.2500 ####[facility] [address] [place], [address] GFR/1.73 sq M.predicted among non-blacks MDRD (S/P/Bld) [Vol rate/Area] 38 mL/min/{1.73_m2} Low >60 [facility] Comment on above: Result Comment: mL/m in/1.73m2 CKD-EPI Creatinine Equation (2020) Performed By: #### L 100.0500, L500.2500 ####[facility] [address] [place], [address] Glucose [Mass/Vol] 110 mg/dL High 70-99 [facility] Comment on above: Performed By: #### L 100.0500, L500.2500 ####[facility] [address] [place], [address] Potassium [Moles/Vol] 4.5 mmol/L Normal 3.3-5.1 [facility] Comment on above: Performed By: #### L 100.0500, L500.2500 ####[facility] [address] [place], [address] Sodium [Moles/Vol] 139 mmol/L Normal 133-145 [facility] Comment on above: Performed By: #### L 100.0500, L500.2500 ####[facility] [address] [place], [address] Urea nitrogen [Mass/Vol] 50 mg/dL High 4-19 [facility] Comment on above: Performed By: #### L 100.0500, L500.2500 ####[facility] [address] [place], [address] CBC-Complete Blood Cnt No Di elizabethon 02-14-2025 Erythrocyte distribution width (RBC) [Ratio] 15.0 % High 11.6-14.6 [facility] Comment on above: Performed By: #### L 100.0500, L500.2500 ####[facility] [address] [place], [address] Hematocrit (Bld) [Volume fraction] 35.2 % Low 40-54 [facility] Comment on above: Performed By: #### L 100.0500, L500.2500 ####[facility] [address] [place], [address] Hemoglobin (Bld) [Mass/Vol] 11.6 g/dL Low 13.0-16.5 [facility] Comment on above: Performed By: #### L 100.0500, L500.2500 ####[facility] [address] [place], [address] MCH (RBC) [Entitic mass] 30.6 pg Normal 27.0-32.0 [facility] Comment on above: Performed By: #### L 100.0500, L500.2500 ####[facility] [address] [place], [address] MCHC (RBC) [Mass/Vol] 33.0 g/dL Normal 32-36 [facility] Comment on above: Performed By: #### L 100.0500, L500.2500 ####[facility] [address] [place], [address] MCV (RBC) [Entitic vol] 92.9 fL Normal 80-94 [facility] Comment on above: Performed By: #### L 100.0500, L500.2500 ####[facility] [address] [place], [address] Platelet mean volume (Bld) [Entitic vol] 11.1 fL Normal 6.2-12.0 [facility] Comment on above: Performed By: #### L 100.0500, L500.2500 ####[facility] [address] [place], [address] Platelets (Bld) [#/Vol] 113 10*3/uL Low 150-450 [facility] Comment on above: Performed By: #### L 100.0500, L500.2500 ####[facility] [address] [place], [address] RBC (Bld) [#/Vol] 3.79 10*6/uL Low 4.6-6.2 [facility] Comment on above: Performed By: #### L 100.0500, L500.2500 ####[facility] [address] [place], [address] RDW SD 51.3 fl High 35.1-43.9 [facility] Comment on above: Performed By: #### L 100.0500, L500.2500 ####[facility] [address] [place], [address] WBC (Bld) [#/Vol] 6.0 10*3/uL Normal 4.4-11.0 [facility] Comment on above: Performed By: #### L 100.0500, L500.2500 ####[facility] [address] [place], [address] Carbon dioxide, total [Moles /volume] in Central venous bloodOrdered By: Dustin Hawk on 02-14-2025 CO2 [Moles/Vol] 25.1 mmol/L 21.0-32.0 [facility] Chloride assayOrdered By: Orestes Hawk on 02-14-2025 Chloride [Moles/Vol] 102 mmol/L 98-108 [facility] Erythrocyte distribution wid th ratioOrdered By: Dustin Hawk on 02-14-2025 Erythrocyte distribution width (RBC) [Ratio] 15.0 % High 11.6-14.6 [facility] Erythrocyte distribution wid th standard deviationOrdered By: Dustin Hawk on 02-14-2025 Erythrocyte distribution width (RBC) [Ratio] 51.3 fl High 35.1-43.9 [facility] Glomerular filtration rate ( GFR) estimation/1.73 sq m using serum, plasma, or whole bOrdered By: Dustin Hawk on 02-14-2025 GFR/1.73 sq M.predicted among non-blacks MDRD (S/P/Bld) [Vol rate/Area] 38 mL/min/{1.73_m2} Low >60 [facility] Comment on above: mL/min/1.73m2 CKD-EP I Creatinine Equation (2020) Hematocrit Auto (Bld) [Volum e fraction]Ordered By: Dustin Hawk on 02-14-2025 Hematocrit (Bld) [Volume fraction] 35.2 % Low 40-54 [facility] Hemoglobin measurementOrdere d By: Dustin aHwk on 02-14-2025 Hemoglobin (Bld) [Mass/Vol] 11.6 g/dL Low 13.0-16.5 [facility] MCV (mean corpuscular volume ) determinationOrdered By: Dustin Hawk on 02-14-2025 MCV (RBC) [Entitic vol] 92.9 fL 80-94 [facility] Mean corpuscular hemoglobin (MCH) determinationOrdered By: Dustin Hawk on 02-14-2025 MCH (RBC) [Entitic mass] 30.6 pg 27.0-32.0 [facility] Mean corpuscular hemoglobin concentration (MCHC) determinationOrdered By: Dustin Hawk on 02-14-2025 MCHC (RBC) [Mass/Vol] 33.0 g/dL 32-36 [facility] Mean platelet volume determi nationOrdered By: Dustin Hawk on 02-14-2025 Platelet mean volume (Bld) [Entitic vol] 11.1 fL 6.2-12.0 [facility] Operative Reporton Operative Report Normal [facility] Platelet countOrdered By: Orestes Hawk on 02-14-2025 Platelets (Bld) [#/Vol] 113 10*3/uL Low 150-450 [facility] Potassium measurement (mass/ volume)Ordered By: Dustin Hawk on 02-14-2025 Potassium (Unsp spec) [Mass/Vol] 4.5 mmol/L 3.3-5.1 [facility] RBC Auto (Bld) [#/Vol]Ordere d By: Dustin Hawk on 02-14-2025 RBC (Bld) [#/Vol] 3.79 10*6/uL Low 4.6-6.2 [facility] Serum creatinine measurement (mass/volume)Ordered By: Dustin Hawk on 02-14-2025 Creatinine [Mass/Vol] 1.73 mg/dL High 0.70-1.20 [facility] Serum glucose measurement (m ass/volume)Ordered By: Dustin Hawk on 02-14-2025 Glucose [Mass/Vol] 110 mg/dL High 70-99 [facility] Serum or plasma calcium jossie urement (mass/volume)Ordered By: Dusitn Hawk on 02-14-2025 Calcium [Mass/Vol] 9.5 mg/dL 7.6-11.0 [facility] Serum or plasma urea nitroge n measurement (mass/volume)Ordered By: Dustin Hawk on 02-14-2025 Urea nitrogen [Mass/Vol] 50 mg/dL High 4-19 [facility] Sodium levelOrdered By: Dustin Hawk on 02-14-2025 Sodium [Moles/Vol] 139 mmol/L 133-145 [facility] White blood cell (WBC) count Ordered By: Dustin Hawk on 02-14-2025 WBC (Bld) [#/Vol] 6.0 10*3/uL 4.4-11.0 [facility] CNPTOUTREACHon 02-01-2025 CNPTOUTREACH Normal [facility] CTA Abd/Pelvis W/WO Contrast on 01-18-2025 CTA Abd/Pelvis W/WO Contrast Normal [facility] CNPUTREACHon 01-17-2025 CNPTOUTREACH Normal [facility] Abdomen/Pelvis W IV Cont ONL Yon 01-12-2025 Abdomen/Pelvis W IV Cont ONLY Normal [facility] Absolute lymphocyte countOrd ered By: Hernandez King on 01-12-2025 Lymphocytes Auto (Unsp spec) [#/Vol] 1.16 10*3/uL 0.83-4.51 [facility] Absolute neutrophil countOrd ered By: Hernandez King on 01-12-2025 Neutrophils (Bld) [#/Vol] 3.3 10*3/uL 2.0-7.7 [facility] Anion gap in Serum or Plasma Ordered By: Hernandezsingh King on 01-12-2025 Anion gap [Moles/Vol] 11 mmol/L 5-15 [facility] Automated lymphocyte count a s percentage of total leukocytesOrdered By: Hernandezsingh King on 01-12-2025 Lymphocytes/100 WBC Auto (Unsp spec) 22.3 % 19-41 [facility] BUN/creatinine ratioOrdered By: Hernandezsingh King on 01-12-2025 Urea nitrogen/Creatinine [Mass ratio] 24.7 mg/mg High 10- [facility] Basic Metabolic Profile (BMP )on 01-12-2025 BUN/CRE 24.7 RATIO High 10- [facility] Comment on above: Performed By: #### L 100.0100, L500.2500 ####[facility] [address] [place], [address] Calcium [Mass/Vol] 8.8 mg/dL Normal 7.6-11.0 [facility] Comment on above: Performed By: #### L 100.0100, L500.2500 ####[facility] [address] [place], [address] Chloride [Moles/Vol] 102 mmol/L Normal 98-108 [facility] Comment on above: Performed By: #### L 100.0100, L500.2500 ####[facility] [address] [place], [address] CO2 [Moles/Vol] 24.7 mmol/L Normal 21.0-32.0 [facility] Comment on above: Performed By: #### L 100.0100, L500.2500 ####[facility] [address] [place], [address] Creatinine [Mass/Vol] 1.54 mg/dL High 0.70-1.20 [facility] Comment on above: Performed By: #### L 100.0100, L500.2500 ####[facility] [address] [place], [address] ECRCL 33.25 ml/min Low 50-250 [facility] Comment on above: Performed By: #### L 100.0100, L500.2500 ####[facility] [address] [place], [address] GAP 11 Normal 5-15 [facility] Comment on above: Performed By: #### L 100.0100, L500.2500 ####[facility] [address] [place], [address] GFR/1.73 sq M.predicted among non-blacks MDRD (S/P/Bld) [Vol rate/Area] 44 mL/min/{1.73_m2} Low >60 [facility] Comment on above: Result Comment: mL/m in/1.73m2 CKD-EPI Creatinine Equation (2020) Performed By: #### L 100.0100, L500.2500 ####[facility] [address] [place], [address] Glucose [Mass/Vol] 93 mg/dL Normal 70-99 [facility] Comment on above: Performed By: #### L 100.0100, L500.2500 ####[facility] [address] [place], [address] Potassium [Moles/Vol] 3.9 mmol/L Normal 3.3-5.1 [facility] Comment on above: Performed By: #### L 100.0100, L500.2500 ####[facility] [address] [place], [address] Sodium [Moles/Vol] 138 mmol/L Normal 133-145 [facility] Comment on above: Performed By: #### L 100.0100, L500.2500 ####[facility] [address] [place], [address] Urea nitrogen [Mass/Vol] 38 mg/dL High 4-19 [facility] Comment on above: Performed By: #### L 100.0100, L500.2500 ####[facility] [address] [place], [address] Basophil percentageOrdered B y: Hernandez King on 01-12-2024 Basophils/100 WBC (Bld) 0.8 % 0-1 [facility] CBC W/Diff, Automatedon 12-20 Absolute Lymph 1.16 X10 3/uL Normal 0.83-4.51 [facility] Comment on above: Performed By: #### L 100.0100, L500.2500 ####[facility] [address] [place], [address] Absolute Neut 3.3 X10 3/uL Normal 2.0-7.7 [facility] Comment on above: Performed By: #### L 100.0100, L500.2500 ####[facility] [address] [place], [address] Basophils/100 WBC (Bld) 0.8 % Normal 0-1 [facility] Comment on above: Performed By: #### L 100.0100, L500.2500 ####[facility] [address] [place], [address] Eosinophils/100 WBC (Bld) 3.5 % Normal 0-5 [facility] Comment on above: Performed By: #### L 100.0100, L500.2500 ####[facility] [address] [place], [address] Erythrocyte distribution width (RBC) [Ratio] 14.8 % High 11.6-14.6 [facility] Comment on above: Performed By: #### L 100.0100, L500.2500 ####[facility] [address] [place], [address] Hematocrit (Bld) [Volume fraction] 35.6 % Low 40-54 [facility] Comment on above: Performed By: #### L 100.0100, L500.2500 ####[facility] [address] [place], [address] Hemoglobin (Bld) [Mass/Vol] 11.5 g/dL Low 13.0-16.5 [facility] Comment on above: Performed By: #### L 100.0100, L500.2500 ####[facility] [address] [place], [address] IG% 0.400 Normal 0.0-0.9 [facility] Comment on above: Result Comment: IG% - Immature Granulocytes (promyelocytes, myelocytes andmetamyelocytes) > 1% indicates that a LEFT SHIFT is Present. Performed By: #### L 100.0100, L500.2500 ####[facility] [address] [place], [address] Lymphocytes/100 WBC (Bld) 22.3 % Normal 19-41 [facility] Comment on above: Performed By: #### L 100.0100, L500.2500 ####[facility] [address] [place], [address] MCH (RBC) [Entitic mass] 29.6 pg Normal 27.0-32.0 [facility] Comment on above: Performed By: #### L 100.0100, L500.2500 ####[facility] [address] [place], [address] MCHC (RBC) [Mass/Vol] 32.3 g/dL Normal 32-36 [facility] Comment on above: Performed By: #### L 100.0100, L500.2500 ####[facility] [address] [place], [address] MCV (RBC) [Entitic vol] 91.8 fL Normal 80-94 [facility] Comment on above: Performed By: #### L 100.0100, L500.2500 ####[facility] [address] [place], [address] Monocytes/100 WBC (Bld) 9.8 % Normal 0-10 [facility] Comment on above: Performed By: #### L 100.0100, L500.2500 ####[facility] [address] [place], [address] Neutrophils/100 WBC (Bld) 63.2 % Normal 47-70 [facility] Comment on above: Performed By: #### L 100.0100, L500.2500 ####[facility] [address] [place], [address] Nucleated RBC (Bld) [#/Vol] 0 10*3/uL Normal 0-5 [facility] Comment on above: Performed By: #### L 100.0100, L500.2500 ####[facility] [address] [place], [address] Platelet mean volume (Bld) [Entitic vol] 10.8 fL Normal 6.2-12.0 [facility] Comment on above: Performed By: #### L 100.0100, L500.2500 ####[facility] [address] [place], [address] Platelets (Bld) [#/Vol] 104 10*3/uL Low 150-450 [facility] Comment on above: Performed By: #### L 100.0100, L500.2500 ####[facility] [address] [place], [address] RBC (Bld) [#/Vol] 3.88 10*6/uL Low 4.6-6.2 [facility] Comment on above: Performed By: #### L 100.0100, L500.2500 ####[facility] [address] [place], [address] RDW SD 49.7 fl High 35.1-43.9 [facility] Comment on above: Performed By: #### L 100.0100, L500.2500 ####[facility] [address] [place], [address] WBC (Bld) [#/Vol] 5.2 10*3/uL Normal 4.4-11.0 [facility] Comment on above: Performed By: #### L 100.0100, L500.2500 ####[facility] [address] [place], [address] Carbon dioxide, total [Moles /volume] in Central venous bloodOrdered By: Hernandez Ikng on 01-12-2025 CO2 [Moles/Vol] 24.7 mmol/L 21.0-32.0 [facility] Chloride assayOrdered By: Ug o King on 01-12-2025 Chloride [Moles/Vol] 102 mmol/L 98-108 [facility] Emergency Department Summary on 01-12-2025 Emergency Department Summary Normal [facility] Eosinophil percentageOrdered By: Hernandez King on 01-12-2025 Eosinophils/100 WBC (Bld) 3.5 % 0-5 [facility] Erythrocyte distribution wid th (RBC) [Ratio]Ordered By: Hernandez King on 01-12-2025 Erythrocyte distribution width (RBC) [Entitic vol] 49.7 fL High 35.1-43.9 [facility] Erythrocyte distribution wid th ratioOrdered By: Hernandez King on 01-12-2025 Erythrocyte distribution width (RBC) [Ratio] 14.8 % High 11.6-14.6 [facility] Erythrocyte distribution wid th standard deviationOrdered By: Hernandez King on 01-12-2025 Erythrocyte distribution width (RBC) [Ratio] 49.7 fl High 35.1-43.9 [facility] Estimation of creatinine maira aranceOrdered By: Hernnadez King on 01-12-2025 Estimated Creatinine Clearance Calc 33.25 ml/min Low 50-250 [facility] GFR/1.73 sq M.predicted gabi g non-blacks MDRD (S/P/Bld) [Vol rate/Area]Ordered By: Hernandez King on 01-12-2025 Estimated GFR (MDRD) Non-Af Amer 44 Low >60 [facility] Comment on above: mL/min/1.73m2 CKD-EP I Creatinine Equation (2020) Glomerular filtration rate ( GFR) estimation/1.73 sq m using serum, plasma, or whole bOrdered By: Hernandez King on 01-12-2025 GFR/1.73 sq M.predicted among non-blacks MDRD (S/P/Bld) [Vol rate/Area] 44 mL/min/{1.73_m2} Low >60 [facility] Comment on above: mL/min/1.73m2 CKD-EP I Creatinine Equation (2020) Hematocrit Auto (Bld) [Volum e fraction]Ordered By: Hernandez King on 01-12-2025 Hematocrit (Bld) [Volume fraction] 35.6 % Low 40-54 [facility] Hemoglobin measurementOrdere d By: Hernandez King on 01-12-2025 Hemoglobin (Bld) [Mass/Vol] 11.5 g/dL Low 13.0-16.5 [facility] Immature granulocytes/100 WB C Auto (Bld)Ordered By: Hernandez King on 01-12-2025 Immature granulocytes/100 WBC (Bld) 0.400 % 0.0-0.9 [facility] Comment on above: IG% - Immature Granu locytes (promyelocytes, myelocytes and metamyelocytes) > 1% indicates that a LEFT SHIFT is Present. Lymphocytes Auto (Unsp spec) [#/Vol]Ordered By: Hernandez King on 01-12-2025 Lymphocytes (Bld) [#/Vol] 1.16 10*3/uL 0.83-4.51 [facility] Lymphocytes/100 WBC Auto (Un sp spec)Ordered By: Hernandez King on 01-12-2025 Lymphocytes/100 WBC (Bld) 22.3 % 19-41 [facility] MCV (mean corpuscular volume ) determinationOrdered By: Hernandez Mccarthyo on 01-12-2025 MCV (RBC) [Entitic vol] 91.8 fL 80-94 [facility] Mean corpuscular hemoglobin (MCH) determinationOrdered By: Hernandez King on 01-12-2025 MCH (RBC) [Entitic mass] 29.6 pg 27.0-32.0 [facility] Mean corpuscular hemoglobin concentration (MCHC) determinationOrdered By: Hernandez King on 01-12-2025 MCHC (RBC) [Mass/Vol] 32.3 g/dL 32-36 [facility] Mean platelet volume determi nationOrdered By: Hernandez King on 01-12-2025 Platelet mean volume (Bld) [Entitic vol] 10.8 fL 6.2-12.0 [facility] Monocyte percentageOrdered B y: Hernandez King on 01-12-2025 Monocytes/100 WBC (Bld) 9.8 % 0-10 [facility] Neutrophil percentageOrdered By: Hernandez King on 01-12-2025 Neutrophils/100 WBC (Bld) 63.2 % 47-70 [facility] Nucleated red blood cell per centageOrdered By: Hernandez King on 01-12-2025 Nucleated RBC/100 WBC (Bld) [Ratio] 0 % 0-5 [facility] Platelet countOrdered By: Ug singh Mccarthyo on 01-12-2025 Platelets (Bld) [#/Vol] 104 10*3/uL Low 150-450 [facility] Potassium (Unsp spec) [Mass/ Vol]Ordered By: Hernandez King on 01-12-2025 Potassium [Moles/Vol] 3.9 mmol/L 3.3-5.1 [facility] Potassium measurement (mass/ volume)Ordered By: Hernandezsingh King on 01-12-2025 Potassium (Unsp spec) [Mass/Vol] 3.9 mmol/L 3.3-5.1 [facility] RBC Auto (Bld) [#/Vol]Ordere d By: Hernandez King on 01-12-2025 RBC (Bld) [#/Vol] 3.88 10*6/uL Low 4.6-6.2 [facility] Serum creatinine measurement (mass/volume)Ordered By: Hernandez Mccarthyo on 01-12-2025 Creatinine [Mass/Vol] 1.54 mg/dL High 0.70-1.20 [facility] Serum glucose measurement (m ass/volume)Ordered By: Hernandezsingh Mccarthyo on 01-12-2025 Glucose [Mass/Vol] 93 mg/dL 70-99 [facility] Serum or plasma calcium jossie urement (mass/volume)Ordered By: Hernandez King on 01-12-2025 Calcium [Mass/Vol] 8.8 mg/dL 7.6-11.0 [facility] Serum or plasma urea nitroge n measurement (mass/volume)Ordered By: [facility] on 01-12-2025 Urea nitrogen [Mass/Vol] 38 mg/dL High 4-19 [facility] Sodium levelOrdered By: [facility] on 01-12-2025 Sodium [Moles/Vol] 138 mmol/L 133-145 [facility] White blood cell (WBC) count Ordered By: Hernandez King on 01-12-2025 WBC (Bld) [#/Vol] 5.2 10*3/uL 4.4-11.0 [facility] CNPTOUTREACHon 12-26-2024 [facility] MR/BMS.BVSon 12-25-2024 MR/BMS.BVS [facility] CNTHERAPYon 12-22-2024 [facility]APY [facility] CNPTOUTREACHon 12-19-2024 [facility] CNTHERAPYon 12-19-2024 CNTHERAPY Normal [facility] CNTHERAPYon 12-15-2024 CNTHERAPY Normal [facility] CNTHERAPYon 12-12-2024 CNTHERAPY Normal [facility] CNPNon 12-11-2024 CNPN Normal [facility] CNPTOUTREACHon 12-11-2024 [facility]ACH [facility] CNOVon 12-08-2024 CNOV Normal [facility] CNTHERAPYon 03-21-2025 CNTHERAPY Normal [facility] CNTHERAPYon 12-06-2024 CNTHERAPY Normal [facility] THERAPY NTon 12-06-2024 THERAPY NT Normal [facility] CNPTOUTREACHon 12-04-2024 CNPTOUTREACH Normal [facility] CNPNon 12-02-2024 CNPN Normal [facility] CASE MANAGEMon 12-01-2024 CASE MANAGEM Normal [facility] CBC panel Auto (Bld)on 12-01 Erythrocyte distribution width (RBC) [Ratio] 14.8 % Normal 11.5-15.0 [facility] Comment on above: Order Comment: Speci men Type: BLOOD SPECIMENOrdering Facility: [facility] Address: [address] [place] [address] Performed By: #### 5 8410-2 ####[facility] [id number] [place] [address] [place] Hematocrit (Bld) [Volume fraction] 33.8 % Low 39.0-51.0 [facility] Comment on above: Order Comment: Speci men Type: BLOOD SPECIMENOrdering Facility: [facility] Address: [address] [place] [address] Performed By: #### 5 8410-2 ####[facility] LABIA [id number] [place] [address] [place] Hemoglobin (Bld) [Mass/Vol] 10.9 g/dL Low 13.0-17.0 [facility] Comment on above: Order Comment: Speci men Type: BLOOD SPECIMENOrdering Facility: [facility] Address: [address] [place] [address] Performed By: #### 5 8410-2 ####[facility] LABIA [id number] [place] [address] [place] MCH (RBC) [Entitic mass] 30.1 pg Normal 26.0-34.0 [facility] Comment on above: Order Comment: Speci men Type: BLOOD SPECIMENOrdering Facility: [facility] Address: [address] [place] [address] Performed By: #### 5 8410-2 ####[facility] LABCLIA [id number] [place] [address] [place] MCHC (RBC) [Mass/Vol] 32.2 g/dL Normal 30.5-36.0 [facility] Comment on above: Order Comment: Speci men Type: BLOOD SPECIMENOrdering Facility: [facility] Address: [address] [place] [address] Performed By: #### 5 8410-2 ####[facility] LABIA [id number] [place] [address] [place] MCV (RBC) [Entitic vol] 93.4 fL Normal 80.0-100.0 [facility] Comment on above: Order Comment: Speci men Type: BLOOD SPECIMENOrdering Facility: [facility] Address: [address] [place] [address] Performed By: #### 5 8410-2 ####[facility] LABIA [id number] [place] [address] [place] Nucleated RBC (Bld) [#/Vol] 10*3/uL Normal <0.01 [facility] Comment on above: Order Comment: Speci men Type: BLOOD SPECIMENOrdering Facility: [facility] Address: [address] [place] [address] Performed By: #### 5 8410-2 ####[facility] LABIA [id number] [place] [address] [place] Platelet mean volume (Bld) [Entitic vol] 11.0 fL Normal 9.0-12.7 [facility] Comment on above: Order Comment: Speci men Type: BLOOD SPECIMENOrdering Facility: [facility] Address: [address] [place] [address] Performed By: #### 5 8410-2 ####[facility] LABCLIA [id number] [place] [address] [place] Platelets (Bld) [#/Vol] 86 10*3/uL Low 150-400 [facility] Comment on above: Order Comment: Speci men Type: BLOOD SPECIMENOrdering Facility: [facility] Address: [address] [place] [address] Result Comment: No c lot detected. Performed By: #### 5 8410-2 ####[facility] LABIA [id number] [place] [address] [place] RBC (Bld) [#/Vol] 3.62 10*6/uL Low 4.20-6.00 [facility] Comment on above: Order Comment: Speci men Type: BLOOD SPECIMENOrdering Facility: [facility] Address: [address] [place] [address] Performed By: #### 5 8410-2 ####[facility] [id number] [place] [address] [place] WBC (Bld) [#/Vol] 5.61 10*3/uL Normal 3.70-11.00 [facility] Comment on above: Order Comment: Speci men Type: BLOOD SPECIMENOrdering Facility: [facility] Address: [address] [place] [address] Performed By: #### 5 8410-2 ####[facility] LABIA [id number] [place] [address] [place] CNDSon 12-01-2024 CNDS Normal [facility] Comprehensive metabolic 2000 panelon 12-01-2024 Albumin [Mass/Vol] 3.2 g/dL Low 3.9-4.9 [facility] Comment on above: Order Comment: Speci men Type: BLOOD SPECIMENOrdering Facility: [facility] Address: [address] [place] [address] Performed By: #### H STNT, 46693-7 ####[facility] LABCLIA [id number] [place] [address] [place] ALP [Catalytic activity/Vol] 57 U/L Normal 38-113 [facility] Comment on above: Order Comment: Speci men Type: BLOOD SPECIMENOrdering Facility: [facility] Address: [address] [place] [address] Performed By: #### H STNT, 53801-3 ####[facility] LABCLIA [id number] [place] [address] [place] ALT [Catalytic activity/Vol] 16 U/L Normal 10-54 [facility] Comment on above: Order Comment: Speci men Type: BLOOD SPECIMENOrdering Facility: [facility] Address: [address] [place] [address] Performed By: #### H STNT, 36487-1 ####[facility] LABCLIA [id number] [place] [address] [place] Anion gap [Moles/Vol] 7 mmol/L Low 8-15 [facility] Comment on above: Order Comment: Speci men Type: BLOOD SPECIMENOrdering Facility: [facility] Address: [address] [place] [address] Performed By: #### H STNT, 31765-0 ####[facility] LABCLIA [id number] [place] [address] [place] AST [Catalytic activity/Vol] 22 U/L Normal 14-40 [facility] Comment on above: Order Comment: Speci men Type: BLOOD SPECIMENOrdering Facility: [facility] Address: [address] [place] [address] Performed By: #### H STNT, 12118-4 ####[facility] LABCLIA [id number] [place] [address] [place] Bilirubin [Mass/Vol] 0.4 mg/dL Normal 0.2-1.3 [facility] Comment on above: Order Comment: Speci men Type: BLOOD SPECIMENOrdering Facility: [facility] Address: [address] [place] [address] Performed By: #### H STNT, 16805-0 ####[facility] LABCLIA [id number] [address] [address] [place] Calcium [Mass/Vol] 8.8 mg/dL Normal 8.5-10.2 [facility] Comment on above: Order Comment: Speci men Type: BLOOD SPECIMENOrdering Facility: [facility] Address: [address] [place], [place] [address] Performed By: #### H STNT, 85238-7 ####[facility] LABCLIA [id number] [address] [address] [place] Chloride [Moles/Vol] 105 mmol/L Normal 98-107 [facility] Comment on above: Order Comment: Speci men Type: BLOOD SPECIMENOrdering Facility: [facility] Address: [address] [place], [place] [address] Performed By: #### H STNT, 29942-1 ####[facility] LABCLIA [id number] [place] [address] [place] CO2 [Moles/Vol] 26 mmol/L Normal 22-30 [facility] Comment on above: Order Comment: Speci men Type: BLOOD SPECIMENOrdering Facility: [facility] Address: [address] [place], [place] [address] Performed By: #### H STNT, 53685-0 ####[facility] LABCLIA [id number] [address] [address] [place] Creatinine [Mass/Vol] 1.59 mg/dL High 0.73-1.22 [facility] Comment on above: Order Comment: Speci men Type: BLOOD SPECIMENOrdering Facility: [facility] Address: [address] [place], [place] [address] Performed By: #### H STNT, 79423-6 ####[facility] LABCLIA [id number] [place] [address] [place] Creatinine and Glomerular filtration rate.predicted panel (S/P/Bld) 43 mL/min/1.73m??? Low >=60 [facility] Comment on above: Order Comment: Ian lassiter Type: BLOOD SPECIMENOrdering Facility: [facility] Address: [address] [place] [address] Result Comment: Keara mated Glomerular Filtration Rate [...] accurately reflect actual GFR. Performed By: #### H STNYael, 48158-5 ####[facility] LABIA [id number] [place] [address] [place] Glucose [Mass/Vol] 95 mg/dL Normal 74-99 [facility] Comment on above: Order Comment: Ian lassiter Type: BLOOD SPECIMENOrdering Facility: [facility] Address: [address] [place] [address] Result Comment: The [place] [employer] (ADA) provides guidance for cutoff [...] Standards of Medical Care in Diabetes 2016, [place] [employer]. Diabetes Care. 2016.39(Suppl 1). Performed By: #### H STNT, 13863-0 ####[facility] LABCLIA [id number] [address] [address] [place] Potassium [Moles/Vol] 4.9 mmol/L Normal 3.7-5.1 [facility] Comment on above: Order Comment: Speci men Type: BLOOD SPECIMENOrdering Facility: [facility] Address: [address] [place] [address] Performed By: #### H STNT, 70550-9 ####[facility] LABCLIA [id number] [place] [address] [place] Protein [Mass/Vol] 6.0 g/dL Low 6.3-8.0 [facility] Comment on above: Order Comment: Speci men Type: BLOOD SPECIMENOrdering Facility: [facility] Address: [address] [place] [address] Performed By: #### H STNT, 72153-0 ####[facility] LABCLIA [id number] [place] [address] [place] Sodium [Moles/Vol] 138 mmol/L Normal 136-144 [facility] Comment on above: Order Comment: Speci men Type: BLOOD SPECIMENOrdering Facility: [facility] Address: [address] [place] [address] Performed By: #### H STNT, 57460-5 ####[facility] LABCLIA [id number] [place] [address] [place] Urea nitrogen [Mass/Vol] 32 mg/dL High 9-24 [facility] Comment on above: Order Comment: Speci men Type: BLOOD SPECIMENOrdering Facility: [facility] Address: [address] [place] [address] Performed By: #### H STNT, 62980-2 ####[facility] LABCLIA [id number] [place] [address] [place] HIGH SENSITIVITY TROPONIN To n 12-01-2024 Troponin T.cardiac High sensitivity method [Mass/Vol] 104 ng/L High <12 [facility] Comment on above: Order Comment: Speci men Type: BLOOD SPECIMENOrdering Facility: [facility] Address: [address] [place] [address] Performed By: #### H STNT, 20801-3 ####[facility] LABCLIA [id number] [address] [place] [address] [place] PT EDon 12-01-2024 PT ED Normal [facility] THERAPY NTon 12-01-2024 THERAPY NT Normal [facility] CASE MANAGEMon 11-30-2024 CASE MANAGEM Normal [facility] CBC panel Auto (Bld)on 11-30 Erythrocyte distribution width (RBC) [Ratio] 14.8 % Normal 11.5-15.0 [facility] Comment on above: Order Comment: Speci men Type: BLOOD SPECIMENOrdering Facility: [facility] Address: [address] [place] [address] Performed By: #### 5 8410-2 ####[facility] LABCLIA [id number] [place] [address] [place] Hematocrit (Bld) [Volume fraction] 32.6 % Low 39.0-51.0 [facility] Comment on above: Order Comment: Speci men Type: BLOOD SPECIMENOrdering Facility: [facility] Address: [address] [place] [address] Performed By: #### 5 8410-2 ####[facility] LABCLIA [id number] [place] [address] [place] Hemoglobin (Bld) [Mass/Vol] 10.7 g/dL Low 13.0-17.0 [facility] Comment on above: Order Comment: Speci men Type: BLOOD SPECIMENOrdering Facility: [facility] Address: [address] [place] [address] Performed By: #### 5 8410-2 ####[facility] LABCLIA [id number] [place] [address] [place] MCH (RBC) [Entitic mass] 30.1 pg Normal 26.0-34.0 [facility] Comment on above: Order Comment: Speci men Type: BLOOD SPECIMENOrdering Facility: [facility] Address: [address] [place] [address] Performed By: #### 5 8410-2 ####[facility] LABCLIA [id number] [place] [address] [place] MCHC (RBC) [Mass/Vol] 32.8 g/dL Normal 30.5-36.0 [facility] Comment on above: Order Comment: Speci men Type: BLOOD SPECIMENOrdering Facility: [facility] Address: [address] [place] [address] Performed By: #### 5 8410-2 ####[facility] LABCLIA [id number] [address] [place] MCV (RBC) [Entitic vol] 91.6 fL Normal 80.0-100.0 [facility] Comment on above: Order Comment: Speci men Type: BLOOD SPECIMENOrdering Facility: [facility] Address: [address] [place] [address] Performed By: #### 5 8410-2 ####[facility] LABIA [id number] [address] [place] Nucleated RBC (Bld) [#/Vol] 10*3/uL Normal <0.01 [facility] Comment on above: Order Comment: Speci men Type: BLOOD SPECIMENOrdering Facility: [facility] Address: [address] [place] [address] Performed By: #### 5 8410-2 ####[facility] LABCLIA [id number] [address] [place] Platelet mean volume (Bld) [Entitic vol] 12.0 fL Normal 9.0-12.7 [facility] Comment on above: Order Comment: Speci men Type: BLOOD SPECIMENOrdering Facility: [facility] Address: [address] [place] [address] Performed By: #### 5 8410-2 ####[facility] LABIA [id number] [place] [address] [place] Platelets (Bld) [#/Vol] 79 10*3/uL Low 150-400 [facility] Comment on above: Order Comment: Speci men Type: BLOOD SPECIMENOrdering Facility: [facility] Address: [address] [place] [address] Performed By: #### 5 8410-2 ####[facility] LABIA [id number] [place] [address] [place] RBC (Bld) [#/Vol] 3.56 10*6/uL Low 4.20-6.00 [facility] Comment on above: Order Comment: Speci men Type: BLOOD SPECIMENOrdering Facility: [facility] Address: [address] [place] [address] Performed By: #### 5 8410-2 ####[facility] LABIA [id number] [place] [address] [place] WBC (Bld) [#/Vol] 5.54 10*3/uL Normal 3.70-11.00 [facility] Comment on above: Order Comment: Speci men Type: BLOOD SPECIMENOrdering Facility: [facility] Address: [address] [place] [address] Performed By: #### 5 8410-2 ####[facility] LABIA [id number] [place] [address] [place] CONSULT PROGon 11-30-2024 CONSULT PROG Normal [facility] Comprehensive metabolic 2000 panelon 11-30-2024 Albumin [Mass/Vol] 3.2 g/dL Low 3.9-4.9 [facility] Comment on above: Order Comment: Speci men Type: BLOOD SPECIMENOrdering Facility: [facility] Address: [address] [place] [address] Performed By: #### 2 4323-8, 27703-20, ####[facility] LABCLIA [id number] [place] [address] [place] ALP [Catalytic activity/Vol] 54 U/L Normal 38-113 [facility] Comment on above: Order Comment: Speci men Type: BLOOD SPECIMENOrdering Facility: [facility] Address: [address] [place] [address] Performed By: #### 2 4323-8, 27703-20, ####[facility] LABCLIA [id number] [place] [address] [place] ALT [Catalytic activity/Vol] 20 U/L Normal 10-54 [facility] Comment on above: Order Comment: Speci men Type: BLOOD SPECIMENOrdering Facility: [facility] Address: [address] [place] [address] Performed By: #### 2 4323-8, 27703-20, ####[facility] LABIA [id number] [place] [address] [place] Anion gap [Moles/Vol] 11 mmol/L Normal 8-15 [facility] Comment on above: Order Comment: Speci men Type: BLOOD SPECIMENOrdering Facility: [facility] Address: [address] [place] [address] Performed By: #### 2 4323-8, 27703-20, ####[facility] LABIA [id number] [place] [address] [place] AST [Catalytic activity/Vol] 22 U/L Normal 14-40 [facility] Comment on above: Order Comment: Speci men Type: BLOOD SPECIMENOrdering Facility: [facility] Address: [address] [place], [place] [address] Performed By: #### 2 4323-8, 27703-20, ####[facility] LABCLIA [id number] [address] [address] [place] Bilirubin [Mass/Vol] 0.4 mg/dL Normal 0.2-1.3 [facility] Comment on above: Order Comment: Speci men Type: BLOOD SPECIMENOrdering Facility: [facility] Address: [address] [place], [place] [address] Performed By: #### 2 4323-8, 2776-09, ####[facility] LABCLIA [id number] [address] [address] [place] Calcium [Mass/Vol] 8.8 mg/dL Normal 8.5-10.2 [facility] Comment on above: Order Comment: Speci men Type: BLOOD SPECIMENOrdering Facility: [facility] Address: [address] [place], [place] [address] Performed By: #### 2 4323-8, 2776-09, ####[facility] LABCLIA [id number] [address] [address] [place] Chloride [Moles/Vol] 102 mmol/L Normal 98-107 [facility] Comment on above: Order Comment: Speci men Type: BLOOD SPECIMENOrdering Facility: [facility] Address: [address] [place] [address] Performed By: #### 2 4323-8, 2776-09, ####[facility] LABCLIA [id number] [address] [address] [place] CO2 [Moles/Vol] 23 mmol/L Normal 22-30 [facility] Comment on above: Order Comment: Speci men Type: BLOOD SPECIMENOrdering Facility: [facility] Address: [address] [place] [address] Performed By: #### 2 4323-8, 2776-09, ####[facility] LABIA [id number] [address] [address] [place] Creatinine [Mass/Vol] 1.59 mg/dL High 0.73-1.22 [facility] Comment on above: Order Comment: Speci maikol Type: BLOOD SPECIMENOrdering Facility: [facility] Address: [address] [place] [address] Performed By: #### 2 4323-8, 2777, ####[facility] LABIA [id number] [address] [address] [place] Creatinine and Glomerular filtration rate.predicted panel (S/P/Bld) 43 mL/min/1.73m??? Low >=60 [facility] Comment on above: Order Comment: Ian lassiter Type: BLOOD SPECIMENOrdering Facility: [facility] Address: [address] [place] [address] Result Comment: Keara mated Glomerular Filtration Rate [...] actual GFR. Performed By: #### 2 4323-8, 2777, ####[facility] [id number] [address] [address] [place] Glucose [Mass/Vol] 98 mg/dL Normal 74-99 [facility] Comment on above: Order Comment: Speci maikol Type: BLOOD SPECIMENOrdering Facility: [facility] Address: [address] [place] [id number] Result Comment: The [place] [employer] (ADA) provides guidance for cutoff [...] Standards of Medical Care in Diabetes 2016, [place] [employer]. Diabetes Care. 2016.39(Suppl 1). Performed By: #### 2 4323-8, 27703-20, ####[facility] LABCLIA [id number] [address] [address] [place] Potassium [Moles/Vol] 4.4 mmol/L Normal 3.7-5.1 [facility] Comment on above: Order Comment: Speci men Type: BLOOD SPECIMENOrdering Facility: [facility] Address: [address] [place] [address] Performed By: #### 2 4323-8, 2776-09, ####[facility] LABCLIA [id number] [address] [address] [place] Protein [Mass/Vol] 5.8 g/dL Low 6.3-8.0 [facility] Comment on above: Order Comment: Speci men Type: BLOOD SPECIMENOrdering Facility: [facility] Address: [address] [place] [address] Performed By: #### 2 4323-8, 2776-09, ####[facility] LABCLIA [id number] [address] [address] [place] Sodium [Moles/Vol] 136 mmol/L Normal 136-144 [facility] Comment on above: Order Comment: Speci men Type: BLOOD SPECIMENOrdering Facility: [facility] Address: [address] [place] [address] Performed By: #### 2 4323-8, 2776-09, ####[facility] LABCLIA [id number] [address] [address] [place] Urea nitrogen [Mass/Vol] 37 mg/dL High 9-24 [facility] Comment on above: Order Comment: Speci men Type: BLOOD SPECIMENOrdering Facility: [facility] Address: [address] [place] [address] Performed By: #### 2 4323-8, 2777-1, ####[facility] LABCLIA [id number] [place] [id number] [place] Magnesium SerPl-ncon 11-30 Magnesium [Mass/Vol] 2.3 mg/dL Normal 1.7-2.3 [facility] Comment on above: Order Comment: Speci men Type: BLOOD SPECIMENOrdering Facility: [facility] Address: [address] [place] [address] Performed By: #### 2 4323-8, 2777, ####[facility] LABCLIA [id number] [place] [id number] [place] NURSING PROGon 11-30-2024 NURSING PROG Normal [facility] Phosphate SerPl-ncon 11-30 Phosphate [Mass/Vol] 3.1 mg/dL Normal 2.7-4.8 [facility] Comment on above: Order Comment: Speci men Type: BLOOD SPECIMENOrdering Facility: [facility] Address: [address] [place] [address] Performed By: #### 2 4323-8, 2777, ####[facility] LABIA [id number] [place] [id number] [place] THERAPY NTon 11-30-2024 THERAPY NT Normal [facility] THERAPY NT Normal [facility] CAITLYN BY IFA WITH REFLEXon Nuclear Ab pattern (S) [Interp] Nuclear homogeneous Normal [facility] Comment on above: Order Comment: Speci men Type: BLOOD SPECIMENOrdering Facility: [facility] Address: [address] [place] [address] Performed By: #### 3 2677-7, 67456-3, ANAIFR, 11785-9, 54419-2, 17080-1, 30130-1, 12577-0, 6457-6, 51473-0, 94207-9 ####[facility] LABCLIA [id number] [place] [address] [place] Nuclear Ab Ql (S) Positive Abnormal Negative [facility] Comment on above: Order Comment: Speci men Type: BLOOD SPECIMENOrdering Facility: [facility] Address: [address] [place] [address] Result Comment: Anti -nuclear antibody test is used as an aid in diagnosis of systemic autoimmune diseases. Where positive and clinically warranted, follow-up using disease-specific testing is recommended. Low positive titers are not uncommon with advanced age, certain chronic infections, and malignancies among others.Test methodology: Indirect fluorescence immunoassay (IFA) using HEp-2 cells.1:320 Performed By: #### 3 2677-7, 61664-2, ANAIFR, 32398-1, 67668-8, 69332-6, 11957-8, 68170-0, 6457-6, 40532-6, 96520-7 ####[facility] LABIA [id number] [place] [address] [place] CASE MGT INIT ASSESon 2024 CASE MGT INIT ASSES Normal [facility] CBC panel Auto (Bld)on 11-29 Erythrocyte distribution width (RBC) [Ratio] 14.9 % Normal 11.5-15.0 [facility] Comment on above: Order Comment: Speci men Type: BLOOD SPECIMENOrdering Facility: [facility] Address: [address] [place] [address] Performed By: #### 5 8410-2 ####[facility] LABIA [id number] [place] [address] [place] Hematocrit (Bld) [Volume fraction] 31.7 % Low 39.0-51.0 [facility] Comment on above: Order Comment: Speci men Type: BLOOD SPECIMENOrdering Facility: [facility] Address: [address] [place] [address] Performed By: #### 5 8410-2 ####[facility] LABIA [id number] [place] [address] [place] Hemoglobin (Bld) [Mass/Vol] 10.5 g/dL Low 13.0-17.0 [facility] Comment on above: Order Comment: Speci men Type: BLOOD SPECIMENOrdering Facility: [facility] Address: [address] [place] [address] Performed By: #### 5 8410-2 ####[facility] LABIA [id number] [place] [address] [place] MCH (RBC) [Entitic mass] 30.3 pg Normal 26.0-34.0 [facility] Comment on above: Order Comment: Speci men Type: BLOOD SPECIMENOrdering Facility: [facility] Address: [address] [place] [address] Performed By: #### 5 8410-2 ####[facility] LABIA [id number] [place] [address] [place] MCHC (RBC) [Mass/Vol] 33.1 g/dL Normal 30.5-36.0 [facility] Comment on above: Order Comment: Speci men Type: BLOOD SPECIMENOrdering Facility: [facility] Address: [address] [place] [address] Performed By: #### 5 8410-2 ####[facility] LABIA [id number] [place] [address] [place] MCV (RBC) [Entitic vol] 91.4 fL Normal 80.0-100.0 [facility] Comment on above: Order Comment: Speci men Type: BLOOD SPECIMENOrdering Facility: [facility] Address: [address] [place] [address] Performed By: #### 5 8410-2 ####[facility] LABCLIA [id number] [place] [address] [place] Nucleated RBC (Bld) [#/Vol] 10*3/uL Normal <0.01 [facility] Comment on above: Order Comment: Speci men Type: BLOOD SPECIMENOrdering Facility: [facility] Address: [address] [place] [address] Performed By: #### 5 8410-2 ####[facility] LABCLIA [id number] [place] [address] [place] Platelet mean volume (Bld) [Entitic vol] 10.5 fL Normal 9.0-12.7 [facility] Comment on above: Order Comment: Speci men Type: BLOOD SPECIMENOrdering Facility: [facility] Address: [address] [place] [address] Performed By: #### 5 8410-2 ####[facility] LABCLIA [id number] [place] [address] [place] Platelets (Bld) [#/Vol] 87 10*3/uL Low 150-400 [facility] Comment on above: Order Comment: Speci men Type: BLOOD SPECIMENOrdering Facility: [facility] Address: [address] [place] [address] Performed By: #### 5 8410-2 ####[facility] LABCLIA [id number] [place] [address] [place] RBC (Bld) [#/Vol] 3.47 10*6/uL Low 4.20-6.00 [facility] Comment on above: Order Comment: Speci men Type: BLOOD SPECIMENOrdering Facility: [facility] Address: [address] [place] [address] Performed By: #### 5 8410-2 ####[facility] LABCLIA [id number] [place] [address] [place] WBC (Bld) [#/Vol] 4.89 10*3/uL Normal 3.70-11.00 [facility] Comment on above: Order Comment: Speci men Type: BLOOD SPECIMENOrdering Facility: [facility] Address: [address] [place] [address] Performed By: #### 5 8410-2 ####[facility] [id number] [place] [address] [place] CONSULT PROGon 11-29-2024 CONSULT PROG Normal [facility] Centromere Ab IF Ql (S)on Centromere Ab Qn (S) <0.2 Normal <1.0 [facility] Comment on above: Order Comment: Speci men Type: BLOOD SPECIMENOrdering Facility: [facility] Address: [address] [place] [address] Result Comment: Anti -centromere antibody is used as in aid in diagnosis of systemic sclerosis. Clinical correlation is required.Test Methodology: Multiplex flow immunoassay. Performed By: #### 3 2677-7, 95006-5, ANAIFR, 40407-4, 85955-4, 87157-2, 36536-8, 40100-4, 6457-6, 08194-0, 53308-7 ####[facility] [id number] [place] [address] [place] CENTROMERE AB QUAL Negative Normal Negative [facility] Comment on above: Order Comment: Speci men Type: BLOOD SPECIMENOrdering Facility: [facility] Address: [address] [place] [address] Performed By: #### 3 2677-7, 06516-7, ANAIFR, 00327-5, 43249-9, 05582-6, 16831-1, 61331-1, 6457-6, 58214-8, 51164-5 ####[facility] [id number] [place] [address] [place] Chromatin Ab Qnon 11-29-2024 CHROMATIN AB QUAL Negative Normal Negative [facility] Comment on above: Order Comment: Speci men Type: BLOOD SPECIMENOrdering Facility: [facility] Address: [address] [place] [address] Performed By: #### 3 2677-7, 78500-9, ANAIFR, 13612-9, 90771-0, 79748-9, 83678-3, 49849-0, 6457-6, 35134-4, 85881-5 ####[facility] LABCLIA [id number] [place] [address] [place] Chromatin Ab SerPl-aCncon Chromatin Ab Qn <0.2 Normal <1.0 [facility] Comment on above: Order Comment: Speci men Type: BLOOD SPECIMENOrdering Facility: [facility] Address: [address] [place] [address] Result Comment: Test Methodology: Multiplex flow immunoassay. Performed By: #### 3 2677-7, 78343-4, ANAIFR, 74651-9, 37458-8, 97326-7, 98858-8, 26531-1, 6457-6, 79814-9, 03033-2 ####[facility] LABCLIA [id number] [place] [address] [place] Comprehensive metabolic 2000 panelon 11-29-2024 Albumin [Mass/Vol] 3.3 g/dL Low 3.9-4.9 [facility] Comment on above: Order Comment: Speci men Type: BLOOD SPECIMENOrdering Facility: [facility] Address: [address] [place] [address] Performed By: #### 1 9123-9, 02743-1, 2777-1 ####[facility] LABCLIA [id number] [place] [address] [place] ALP [Catalytic activity/Vol] 64 U/L Normal 38-113 [facility] Comment on above: Order Comment: Speci men Type: BLOOD SPECIMENOrdering Facility: [facility] Address: [address] [place] [address] Performed By: #### 1 9123-9, 05786-1, 277- ####[facility] LABCLIA [id number] [place] [address] [place] ALT [Catalytic activity/Vol] 19 U/L Normal 10-54 [facility] Comment on above: Order Comment: Speci men Type: BLOOD SPECIMENOrdering Facility: [facility] Address: [address] [place] [address] Performed By: #### 1 9123-9, 13917-6, 27703-20 ####[facility] LABCLIA [id number] [place] [address] [place] Anion gap [Moles/Vol] 8 mmol/L Normal 8-15 [facility] Comment on above: Order Comment: Speci men Type: BLOOD SPECIMENOrdering Facility: [facility] Address: [address] [place] [address] Performed By: #### 1 9123-9, 66488-0, 2776-09 ####[facility] LABIA [id number] [place] [address] [place] AST [Catalytic activity/Vol] 24 U/L Normal 14-40 [facility] Comment on above: Order Comment: Speci men Type: BLOOD SPECIMENOrdering Facility: [facility] Address: [address] [place], [place] [address] Performed By: #### 1 9123-9, 63797-0, 277- ####[facility] LABCLIA [id number] [place] [address] [place] Bilirubin [Mass/Vol] 0.4 mg/dL Normal 0.2-1.3 [facility] Comment on above: Order Comment: Speci men Type: BLOOD SPECIMENOrdering Facility: [facility] Address: [address] [place], [place] [address] Performed By: #### 1 9123-9, 13038-3, 2777- ####[facility] LABCLIA [id number] [address] [address] [place] Calcium [Mass/Vol] 8.8 mg/dL Normal 8.5-10.2 [facility] Comment on above: Order Comment: Speci men Type: BLOOD SPECIMENOrdering Facility: [facility] Address: [address] [place] [address] Performed By: #### 1 9123-9, 66152-5, 27703-20 ####[facility] LABCLIA [id number] [place] [address] [place] Chloride [Moles/Vol] 103 mmol/L Normal 98-107 [facility] Comment on above: Order Comment: Speci men Type: BLOOD SPECIMENOrdering Facility: [facility] Address: [address] [place], [place] [address] Performed By: #### 1 9123-9, 79496-3, 27703-20 ####[facility] LABIA [id number] [place] [address] [place] CO2 [Moles/Vol] 26 mmol/L Normal 22-30 [facility] Comment on above: Order Comment: Speci men Type: BLOOD SPECIMENOrdering Facility: [facility] Address: [address] [place], [place] [address] Performed By: #### 1 9123-9, 50508-6, 277- ####[facility] LABIA [id number] [address] [address] [place] Creatinine [Mass/Vol] 1.59 mg/dL High 0.73-1.22 [facility] Comment on above: Order Comment: Speci men Type: BLOOD SPECIMENOrdering Facility: [facility] Address: [address] [place], [place] [address] Performed By: #### 1 9123-9, 24873-7, 2777-1 ####[facility] LABIA [id number] [place] [address] [place] Creatinine and Glomerular filtration rate.predicted panel (S/P/Bld) 43 mL/min/1.73m??? Low >=60 [facility] Comment on above: Order Comment: Ian lassiter Type: BLOOD SPECIMENOrdering Facility: [facility] Address: [address] [place] [address] Result Comment: Keara mated Glomerular Filtration Rate [...] accurately reflect actual GFR. Performed By: #### 1 9123-9, 23506-5, 277- ####[facility] LABIA [id number] [place] [address] [place] Glucose [Mass/Vol] 109 mg/dL High 74-99 [facility] Comment on above: Order Comment: Ian lassiter Type: BLOOD SPECIMENOrdering Facility: [facility] Address: [address] [place] [address] Result Comment: The [place] [employer] (ADA) provides guidance for cutoff [...] Standards of Medical Care in Diabetes 2016, [place] [employer]. Diabetes Care. 2016.39(Suppl 1). Performed By: #### 1 9123-9, 82995-4, 2776-09 ####[facility] LABCLIA [id number] [address] [address] [place] Potassium [Moles/Vol] 4.0 mmol/L Normal 3.7-5.1 [facility] Comment on above: Order Comment: Speci men Type: BLOOD SPECIMENOrdering Facility: [facility] Address: [address] [place] [address] Performed By: #### 1 9123-9, 57843-5, 2776-09 ####[facility] LABCLIA [id number] [place] [address] [place] Protein [Mass/Vol] 6.0 g/dL Low 6.3-8.0 [facility] Comment on above: Order Comment: Speci men Type: BLOOD SPECIMENOrdering Facility: [facility] Address: [address] [place] [address] Performed By: #### 1 9123-9, , 2776-09 ####[facility] LABCLIA [id number] [place] [address] [place] Sodium [Moles/Vol] 137 mmol/L Normal 136-144 [facility] Comment on above: Order Comment: Speci men Type: BLOOD SPECIMENOrdering Facility: [facility] Address: [address] [place], [place] [address] Performed By: #### 1 9123-9, , 2776-09 ####[facility] LABCLIA [id number] [address] [address] [place] Urea nitrogen [Mass/Vol] 39 mg/dL High 9-24 [facility] Comment on above: Order Comment: Speci men Type: BLOOD SPECIMENOrdering Facility: [facility] Address: [address] [place], [place] [address] Performed By: #### 1 9123-9, 41280-9, 2776- ####[facility] LABCLIA [id number] [place] [address] [place] DNA double strand Ab IA Qn ( S)on 11-29-2024 DNA ANTIBODY 543 IU/mL High <=200 [facility] Comment on above: Order Comment: Speci men Type: BLOOD SPECIMENOrdering Facility: [facility] Address: [address] [place] [address] Result Comment: Nega tive: <200 IU/mLEquivocal: 201-300 IU/mLModerate Positive: 301-800 IU/mLStrong Positive: >801 IU/mL Performed By: #### 3 2677-7, 74712-2, ANAIFR, 37979-8, 12286-9, 59361-4, 75647-6, 75469-2, 6457-6, 11215-4, 75538-0 ####[facility] [id number] [place] [address] [place] DNA ANTIBODY QUALITATIVE INTERPRETATION Positive Abnormal Negative [facility] Comment on above: Order Comment: Speci men Type: BLOOD SPECIMENOrdering Facility: [facility] Address: [address] [place] [address] Performed By: #### 3 2677-7, 73434-9, ANAIFR, 68317-3, 87955-6, 59430-5, 31534-0, 51757-3, 6457-6, 99772-6, 73206-2 ####[facility] LABIA [id number] [place] [address] [place] ECHO LIMITEDon 11-29-2024 ECHO LIMITED Normal [facility] SULEIMAN Jo1 Ab Ser-aCncon 2024 Keily-1 extractable nuclear Ab Qn (S) <0.2 Normal <1.0 [facility] Comment on above: Order Comment: Speci men Type: BLOOD SPECIMENOrdering Facility: [facility] Address: [address] [place] [address] Performed By: #### 3 2677-7, 37192-5, ANAIFR, 28413-5, 38412-7, 37814-8, 16908-5, 64634-3, 6457-6, 03503-2, 84999-6 ####[facility] LABIA [id number] [place] [address] [place] SULEIMAN MANAGER MANAGING Ab Ser-aCncon 2024 Ribonucleoprotein extractable nuclear Ab Qn (S) <0.2 Normal <1.0 [facility] Comment on above: Order Comment: Speci men Type: BLOOD SPECIMENOrdering Facility: [facility] Address: [address] [place] [address] Performed By: #### 3 2677-7, 29640-6, ANAIFR, 94050-8, 07377-5, 65256-9, 17164-6, 06506-7, 6457-6, 99440-7, 60039-3 ####[facility] [id number] [place] [address] [place] Ribonucleoprotein extractable nuclear Ab Qn (S) 0.4 AI Normal <1.0 [facility] Comment on above: Order Comment: Speci men Type: BLOOD SPECIMENOrdering Facility: [facility] Address: [address] [place] [address] Performed By: #### 3 2677-7, 35478-6, ANAIFR, 16103-9, 10771-3, 21846-4, 19880-3, 35952-3, 6457-6, 02428-4, 12418-1 ####[facility] [id number] [place] [address] [place] SULEIMAN SM IgG Ser-aCncon 2024 Dawkins extractable nuclear IgG Qn (S) <0.2 Normal <1.0 [facility] Comment on above: Order Comment: Speci men Type: BLOOD SPECIMENOrdering Facility: [facility] Address: [address] [place] [address] Performed By: #### 3 2677-7, 21058-1, ANAIFR, 19756-8, 86854-0, 28523-5, 32970-9, 62144-3, 6457-6, 08101-9, 70548-0 ####[facility] LABCLIA [id number] [place] [address] [place] SULEIMAN SS-A Ab Ser-aCncon 11-29 Sjogrens syndrome-A extractable nuclear Ab Qn (S) <0.2 Normal <1.0 [facility] Comment on above: Order Comment: Speci men Type: BLOOD SPECIMENOrdering Facility: [facility] Address: [address] [place] [address] Result Comment: Test Methodology: Multiplex flow immunoassay. Performed By: #### 3 2677-7, 15547-2, ANAIFR, 88629-9, 58909-2, 06378-6, 12368-5, 10701-7, 6457-6, 54592-1, 49293-7 ####[facility] [id number] [place] [address] [place] SULEIMAN SS-B Ab Ser-aCncon 11-29 Sjogrens syndrome-B extractable nuclear Ab Qn (S) <0.2 Normal <1.0 [facility] Comment on above: Order Comment: Speci men Type: BLOOD SPECIMENOrdering Facility: [facility] Address: [address] [place] [address] Result Comment: Anti -SSB (anti-La) antibody is used as an aid in diagnosis of a variety of systemic autoimmune diseases, especially for Sjogren's syndrome and systemic lupus erythematosus. Clinical correlation is required.Test Methodology: Multiplex flow immunoassay. Performed By: #### 3 2677-7, 41543-2, ANAIFR, 82355-0, 61090-9, 37631-6, 00826-6, 55782-6, 6457-6, 11810-4, 85668-6 ####[facility] LABCLIA [id number] [address] [place] HBV core Ab Ser Qlon 025 HBV core Ab Ql (S) Negative Normal Negative [facility] Comment on above: Order Comment: Speci maikol Type: BLOOD SPECIMENOrdering Facility: [facility] Address: [address] [place] [address] Result Comment: No e vidence of current or past infection with Hepatitis B virus. Should recent infection be suspected, repeat testing may be considered 3-4 weeks after this draw. Performed By: #### 1 6933-4, 29731-8, 5194-3 ####[facility] LABCLIA [id number] [address] HBV surface Ab Ql (S)on 11-18 HBV surface Ab Qn (S) <8.00 Normal [facility] Comment on above: Order Comment: Speci men Type: BLOOD SPECIMENOrdering Facility: [facility] Address: [address] [place] [address] Result Comment: <8 m IU/mL: No serological evidence of immunity to Hepatitis B Virus.>/= 8 to <12 mIU/mL: No serological evidence of immunity to Hepatitis B Virus.>/= 12 mIU/mL: Consistent with serological evidence of immunity to Hepatitis B Virus. Performed By: #### 1 6933-4, 20083-7, 5194-3 ####[facility] LABCLIA [id number] [address] [facility] HBV surface Ab Ser Qlon 11-18 HBV surface Ab Ql (S) Negative Normal [facility] Comment on above: Order Comment: Speci men Type: BLOOD SPECIMENOrdering Facility: [facility] Address: [address] [place] [address] Result Comment: No s erological evidence of immunity to Hepatitis B Virus. Performed By: #### 1 6933-4, 97522-2, 5194-3 ####[facility] LABCLIA [id number] [place] [address] [place] HBV surface Ag Ser Qlon 11-18 HBV surface Ag Ql (S) Negative Normal Negative [facility] Comment on above: Order Comment: Speci men Type: BLOOD SPECIMENOrdering Facility: [facility] Address: [address] [place] [address] Performed By: #### 1 6933-4, 71948-5, 5195-3 ####[facility] LABIA [id number] [place] [address] [place] HCV Ab Ser Qlon 11-29-2024 HCV Ab Ql (S) Negative Normal Negative [facility] Comment on above: Order Comment: Speci men Type: BLOOD SPECIMENOrdering Facility: [facility] Address: [address] [place] [address] Result Comment: The result suggests no evidence of active infection with Hepatitis C virus. Should recent infection be suspected, repeat testing may be considered 4-6 weeks after this draw. Performed By: #### 1 6128-1 ####[facility] LABIA [id number] [place] [address] [place] HIGH SENSITIVITY TROPONIN To n 11-29-2024 Troponin T.cardiac High sensitivity method [Mass/Vol] 129 ng/L High <12 [facility] Comment on above: Order Comment: Speci men Type: BLOOD SPECIMENOrdering Facility: [facility] Address: [address] [place] [address] Performed By: #### H STNT ####[facility] [id number] [place] [address] [place] Keily-1 extractable nuclear Ab Qn (S)on 11-29-2024 KEILY 1 ANTIBODY QUAL Negative Normal Negative [facility] Comment on above: Order Comment: Speci men Type: BLOOD SPECIMENOrdering Facility: [facility] Address: [address] [place] [address] Result Comment: Anti -KEILY-1 antibody is used as an aid in diagnosis of polymyositis and dermatomyositis especially with pulmonary involvement. A negative result cannot rule out polymyositis or dermatomyositis. Clinical correlation is required.Test Methodology: Multiplex flow immunoassay. Performed By: #### 3 2677-7, 10484-8, ANAIFR, 65942-5, 49120-8, 00351-1, 79005-7, 94008-8, 6457-6, 09939-6, 15464-5 ####[facility] [id number] [place] [address] [place] Magnesium SerPl-ncon 11-29 Magnesium [Mass/Vol] 2.3 mg/dL Normal 1.7-2.3 [facility] Comment on above: Order Comment: Speci men Type: BLOOD SPECIMENOrdering Facility: [facility] Address: [address] [place] [address] Performed By: #### 1 9123-9, 24488-4, 2777-1 ####[facility] [id number] [place] [address] [place] Phosphate SerPl-mCncon 11-29 Phosphate [Mass/Vol] 3.3 mg/dL Normal 2.7-4.8 [facility] Comment on above: Order Comment: Nahuni maikol Type: BLOOD SPECIMENOrdering Facility: [facility] Address: [address] [place] [address] Performed By: #### 1 9123-9, 16838-4, 2777-1 ####[facility] [id number] [place] [address] [place] Ribonucleoprotein extractabl e nuclear Ab Qn (S)on 11-29-2024 ANTI-MANAGER MANAGING QUAL Negative Normal Negative [facility] Comment on above: Order Comment: Speci men Type: BLOOD SPECIMENOrdering Facility: [facility] Address: [address] [place] [address] Performed By: #### 3 2677-7, 45870-4, ANAIFR, 83488-8, 41954-8, 13446-9, 73758-2, 59394-2, 6457-6, 40505-9, 57933-8 ####[facility] [id number] [address] [address] [place] RIBOSOMAL MANAGER MANAGING QUAL Negative Normal Negative [facility] Comment on above: Order Comment: Speci men Type: BLOOD SPECIMENOrdering Facility: [facility] Address: [address] [place], [place] [address] Result Comment: Anti -Ribosomal RNA (Ribosomal P) antibody is used as an aid in diagnosis of systemic autoimmune diseases especially systemic lupus erythematosus and mixed connective tissue disease. Cross-reactivity with Anti-dawkins antibody is not uncommon. Clinical correlation is required.Test Methodology: Multiplex flow immunoassay. Performed By: #### 3 2677-7, 98422-9, ANAIFR, 46485-8, 03083-5, 67063-9, 82480-4, 14507-1, 6457-6, 79780-5, 12184-7 ####[facility] [id number] [address] [place] [address] [place] SCL-70 extractable nuclear I gG IA Qn (S)on 11-29-2024 SCLERODERMA AB QUAL Negative Normal Negative [facility] Comment on above: Order Comment: Speci men Type: BLOOD SPECIMENOrdering Facility: [facility] Address: [address] [place] [address] Performed By: #### 3 2677-7, 28965-5, ANAIFR, 32686-3, 11529-3, 90378-2, 94763-7, 97557-1, 6457-6, 67384-5, 98862-9 ####[facility] [id number] [address] [address] [place] SCLERODERMA IGG AB <0.2 Normal <1.0 [facility] Comment on above: Order Comment: Speci men Type: BLOOD SPECIMENOrdering Facility: [facility] Address: [address] [place] [address] Result Comment: Scl- 70/Scleroderma antibody test is used as an aid in diagnosis of systemic sclerosis especially the diffuse cutaneous form. A negative result cannot rule out systemic sclerosis. The final interpretation should consider clinical picture and other test results such as anti-centromere antibody. Test Methodology: Multiplex flow immunoassay. Performed By: #### 3 2677-7, 26969-2, ANAIFR, 70871-5, 90956-2, 87208-5, 47858-0, 45091-1, 6457-6, 97033-4, 29272-2 ####[facility] LABIA [id number] [address] [place] [address] [facility] Sjogrens syndrome-A extracta ble nuclear Ab Qn (S)on 11-29-2024 SSA ANTIBODY QUAL Negative Normal Negative [facility] Comment on above: Order Comment: Speci men Type: BLOOD SPECIMENOrdering Facility: [facility] Address: [address] [place] [address] Performed By: #### 3 2677-7, 68412-5, ANAIFR, 80176-7, 60805-5, 07742-5, 85112-6, 30299-0, 6457-6, 16257-3, 84814-3 ####[facility] LABIA [id number] [address] [place] [address] [facility] Sjogrens syndrome-B extracta ble nuclear Ab Qn (S)on 11-29-2024 SSB ANTIBODY QUAL Negative Normal Negative [facility] Comment on above: Order Comment: Speci men Type: BLOOD SPECIMENOrdering Facility: [facility] Address: [address] [place] [address] Performed By: #### 3 2677-7, 19810-1, ANAIFR, 07727-6, 61609-7, 21338-6, 90936-6, 93578-7, 6457-6, 00435-7, 38283-7 ####[facility] LABCLIA [id number] [address] [place] [address] [place] Dawkins extractable nuclear Ig G Qn (S)on 11-29-2024 SM ANTIBODY QUAL Negative Normal Negative [facility] Comment on above: Order Comment: Speci men Type: BLOOD SPECIMENOrdering Facility: [facility] Address: [address] [place] [address] Result Comment: Anti -Sm (Dawkins) antibody is used as an aid in diagnosis of systemic lupus erythematosus and its presence is associated with renal disease. A negative result cannot rule out systemic lupus erythematosus. Clinical correlation is required.Test Methodology: Multiplex flow immunoassay. Performed By: #### 3 2677-7, 62731-8, ANAIFR, 16504-9, 14642-4, 22815-5, 90884-7, 06566-3, 6457-6, 17770-6, 12741-5 ####[facility] LABCLIA [id number] [place] [address] [place] Urinalysis complete panel (U )on 11-29-2024 Bacteria LM.HPF (Urine sed) [#/Area] Negative Normal Negative [facility] Comment on above: Order Comment: Speci men Type: URINE SPECIMENOrdering Facility: [facility] Address: [address] [place] [address] Performed By: #### 2 4356-8 ####[facility] LABCLIA [id number] [place] [address] [place] Bilirubin Ql (U) Negative Normal Negative [facility] Comment on above: Order Comment: Speci men Type: URINE SPECIMENOrdering Facility: [facility] Address: [address] [place] [address] Performed By: #### 2 4356-8 ####[facility] LABCLIA [id number] [place] [address] [place] Clarity (Unsp spec) Clear Normal Clear [facility] Comment on above: Order Comment: Speci men Type: URINE SPECIMENOrdering Facility: [facility] Address: [address] [place] [address] Performed By: #### 2 4356-8 ####[facility] LABCLIA [id number] [place] [address] [place] Color (U) Yellow Normal Yellow [facility] Comment on above: Order Comment: Speci men Type: URINE SPECIMENOrdering Facility: [facility] Address: [address] [place] [address] Performed By: #### 2 4356-8 ####[facility] LABCLIA [id number] [address], [place] [address] [place] Epithelial cells LM.HPF (Urine sed) [#/Area] None Seen Normal [facility] Comment on above: Order Comment: Speci men Type: URINE SPECIMENOrdering Facility: [facility] Address: [address] [place] [address] Performed By: #### 2 4356-8 ####[facility] LABCLIA [id number] [address] [place] Glucose Test strip (U) [Mass/Vol] Negative Normal Negative [facility] Comment on above: Order Comment: Speci men Type: URINE SPECIMENOrdering Facility: [facility] Address: [address] [place] [address] Performed By: #### 2 4356-8 ####[facility] LABCLIA [id number] [place] [address] [place] Hemoglobin Ql (U) Negative Normal Negative [facility] Comment on above: Order Comment: Speci men Type: URINE SPECIMENOrdering Facility: [facility] Address: [address] [place] [address] Performed By: #### 2 4356-8 ####[facility] LABCLIA [id number] [place] [address] [place] Hyaline casts (Urine sed) [#/Area] 0 /[LPF] Normal 0 /LPF [facility] Comment on above: Order Comment: Speci men Type: URINE SPECIMENOrdering Facility: [facility] Address: [address] [place] [address] Performed By: #### 2 4356-8 ####[facility] LABCLIA [id number] [address] [place] [address] [place] Ketones Ql (U) Negative Normal Negative [facility] Comment on above: Order Comment: Speci men Type: URINE SPECIMENOrdering Facility: [facility] Address: [address] [place] [address] Performed By: #### 2 4356-8 ####[facility] LABCLIA [id number] [place] [address] [place] Leukocyte esterase Test strip Ql (U) Negative Normal Negative [facility] Comment on above: Order Comment: Speci men Type: URINE SPECIMENOrdering Facility: [facility] Address: [address] [place] [address] Performed By: #### 2 4356-8 ####[facility] LABCLIA [id number] [address], [facility] [place] Nitrite Ql (U) Negative Normal Negative [facility] Comment on above: Order Comment: Speci men Type: URINE SPECIMENOrdering Facility: [facility] Address: [address] [place] [address] Performed By: #### 2 4356-8 ####[facility] LABCLIA [id number] [address], [facility] [place] pH (U) 6.0 [pH] Normal <8.5 [facility] Comment on above: Order Comment: Speci men Type: URINE SPECIMENOrdering Facility: [facility] Address: [address] [place] [address] Performed By: #### 2 4356-8 ####[facility] LABCLIA [id number] [address], [facility] [place] Protein (U) [Mass/Vol] Trace Abnormal Negative [facility] Comment on above: Order Comment: Speci men Type: URINE SPECIMENOrdering Facility: [facility] Address: [address] [place] [address] Performed By: #### 2 4356-8 ####[facility] [id number] [place] [address] [place] RBC LM.HPF (Urine sed) [#/Area] 0-2 /HPF Normal 0-2 /HPF [facility] Comment on above: Order Comment: Speci men Type: URINE SPECIMENOrdering Facility: [facility] Address: [address] [place] [address] Performed By: #### 2 4356-8 ####[facility] [id number] [place] [address] [place] Specific gravity (U) [Rel density] 1.034 High 1.005-1.030 [facility] Comment on above: Order Comment: Speci men Type: URINE SPECIMENOrdering Facility: [facility] Address: [address] [place] [address] Performed By: #### 2 4356-8 ####[facility] [id number] [address] [place] Urobilinogen Ql (U) 0.2 EU/dL Normal 0.2-1.0 EU/dL [facility] Comment on above: Order Comment: Speci men Type: URINE SPECIMENOrdering Facility: [facility] Address: [address] [place] [address] Performed By: #### 2 4356-8 ####[facility] [id number] [place] [address] [place] WBC LM.HPF (Urine sed) [#/Area] 0-5 /HPF Normal 0-5 /HPF [facility] Comment on above: Order Comment: Speci men Type: URINE SPECIMENOrdering Facility: [facility] Address: [address] [place] [address] Performed By: #### 2 4356-8 ####[facility] LABIA [id number] [place] [address] [place] XR ABDOMEN 1V SUPINEon 11-29 XR ABDOMEN 1V SUPINE Normal [facility] dsDNA Ab Ser Ql CLIFon 11-29 DNA double strand Ab IF Crithidia luciliae Ql (S) Negative Normal Negative [facility] Comment on above: Order Comment: Speci men Type: BLOOD SPECIMENOrdering Facility: [facility] Address: [address] [place] [address] Result Comment: Crit hidia luciliae assay is used as an aid in diagnosis of systemic lupus erythematosus (SLE). A negative result cannot rule out SLE. Low positive titers may be seen with other systemic autoimmune diseases. Clinical correlation is required. Performed By: #### 3 2677-7, 70206-1, ANAIFR, 53199-9, 95870-9, 78423-1, 77944-9, 35465-1, 6457-6, 71822-2, 63033-4 ####[facility] LABCLIA [id number] [place] [address] [place] 12 Lead EKGon 11-28-2024 12 Lead EKG Normal [facility] Abdomen/Pelvis W IV Cont ONL Yon 11-28-2024 Abdomen/Pelvis W IV Cont ONLY Normal [facility] Absolute lymphocyte countOrd ered By: Nate Gray on 11-28-2024 Lymphocytes Auto (Unsp spec) [#/Vol] 0.86 10*3/uL 0.83-4.51 [facility] Absolute neutrophil countOrd ered By: Nate Gray on 11-28-2024 Neutrophils (Bld) [#/Vol] 3.6 10*3/uL 2.0-7.7 [facility] Anion gap in Serum or Plasma Ordered By: Nate Gray on 11-28-2024 Anion gap [Moles/Vol] 13 mmol/L 5-15 [facility] Automated lymphocyte count a s percentage of total leukocytesOrdered By: Nate Gray on 11-28-2024 Lymphocytes/100 WBC Auto (Unsp spec) 17.0 % Low 19-41 [facility] BUN/creatinine ratioOrdered By: Nate Gray on 11-28-2024 Urea nitrogen/Creatinine [Mass ratio] 26.9 mg/mg High 10-20 [facility] Bacteria Bld Culton 11-29-19 25 Bacteria identified Cx Nom (Bld) CULTURE, BLOOD: No growth 5 days Normal [facility] Comment on above: Performed By: #### 6 00-7 ####[facility] LABCLIA [id number] [address] [place] Bacteria identified Cx Nom (Bld) CULTURE, BLOOD: No growth 5 days Normal [facility] Comment on above: Performed By: #### 6 00-7 ####[facility] LABCLIA [id number] [address] OF [facility] Basophil percentageOrdered B y: Nate Gray on 11-28-2024 Basophils/100 WBC (Bld) 0.6 % 0-1 [facility] Bilirubin Test strip Ql (U)O rdered By: Nate Gray on 11-28-2024 Bilirubin Ql (U) Negative Negative [facility] Bilirubin, totalOrdered By: Nate Gray on 11-28-2024 Bilirubin [Mass/Vol] 0.47 mg/dL 0.00-1.30 [facility] Blood manual differential co mment interpretation (narrative result)Ordered By: Nate Gray on 11-28-2024 Manual differential comment Juvenal (Bld) [Interp] SEE COMMENT [facility] Comment on above: THROMBOCYTOPENIA NOT ED CBC W/Diff, Automatedon 11-18 Anisocytosis Ql (Bld) RARE Normal [facility] Comment on above: Performed By: #### L 500.4050, L501.2450, L100.0100, BTS ####[facility] [address] [place], [place], [id number] MACROCYTOSIS RARE Normal [facility] Comment on above: Performed By: #### L 500.4050, L501.2450, L100.0100, BTS ####[facility] [address] [place], [address] PLT EST MOD DEC Normal ADEQ [facility] Comment on above: Performed By: #### L 500.4050, L501.2450, L100.0100, BTS ####[facility] [address] [place], [address] RED CELL MORPH N CHROM Normal NORM C C [facility] Comment on above: Performed By: #### L 500.4050, L501.2450, L100.0100, BTS ####[facility] [address] [place], [address] SMEAR COMMENT SEE COMMENT Normal [facility] Comment on above: Result Comment: THRO MBOCYTOPENIA NOTED Performed By: #### L 500.4050, L501.2450, L100.0100, BTS ####[facility] [address] [place], [address] CBC panel Auto (Bld)on 11-28 Erythrocyte distribution width (RBC) [Ratio] 14.9 % Normal 11.5-15.0 [facility] Comment on above: Order Comment: Speci men Type: BLOOD SPECIMENOrdering Facility: [facility] Address: [address] [place] [address] Performed By: #### 3 1201-7, 15456-6 ####[facility] LABCLIA [id number] [address] [address] [place] Hematocrit (Bld) [Volume fraction] 33.6 % Low 39.0-51.0 [facility] Comment on above: Order Comment: Speci men Type: BLOOD SPECIMENOrdering Facility: [facility] Address: [address] [place] [address] Performed By: #### 3 1201-7, 56353-3 ####[facility] LABCLIA [id number] [place] [address] [place] Hemoglobin (Bld) [Mass/Vol] 11.0 g/dL Low 13.0-17.0 [facility] Comment on above: Order Comment: Speci men Type: BLOOD SPECIMENOrdering Facility: [facility] Address: [address] [place] [address] Performed By: #### 3 1201-7, 41674-8 ####[facility] LABIA [id number] [place] [address] [place] MCH (RBC) [Entitic mass] 30.0 pg Normal 26.0-34.0 [facility] Comment on above: Order Comment: Speci men Type: BLOOD SPECIMENOrdering Facility: [facility] Address: [address] [place] [address] Performed By: #### 3 1201-7, 36378-6 ####[facility] [id number] [place] [address] [place] MCHC (RBC) [Mass/Vol] 32.7 g/dL Normal 30.5-36.0 [facility] Comment on above: Order Comment: Speci men Type: BLOOD SPECIMENOrdering Facility: [facility] Address: [address] [place] [address] Performed By: #### 3 1201-7, 85666-1 ####[facility] LABIA [id number] [place] [address] [place] MCV (RBC) [Entitic vol] 91.6 fL Normal 80.0-100.0 [facility] Comment on above: Order Comment: Speci men Type: BLOOD SPECIMENOrdering Facility: [facility] Address: [address] [place] [address] Performed By: #### 3 1201-7, 61112-6 ####[facility] LABIA [id number] [address] [address] [place] Nucleated RBC (Bld) [#/Vol] 10*3/uL Normal <0.01 [facility] Comment on above: Order Comment: Speci men Type: BLOOD SPECIMENOrdering Facility: [facility] Address: [address] [place] [address] Performed By: #### 3 1201-7, 32153-1 ####[facility] LABCLIA [id number] [place] [address] [place] Platelet mean volume (Bld) [Entitic vol] 10.2 fL Normal 9.0-12.7 [facility] Comment on above: Order Comment: Speci men Type: BLOOD SPECIMENOrdering Facility: [facility] Address: [address] [place] [address] Performed By: #### 3 1201-7, 77121-9 ####[facility] LABCLIA [id number] [place] [address] [place] Platelets (Bld) [#/Vol] 85 10*3/uL Low 150-400 [facility] Comment on above: Order Comment: Speci men Type: BLOOD SPECIMENOrdering Facility: [facility] Address: [address] [place] [address] Performed By: #### 3 1201-7, 45055-6 ####[facility] LABIA [id number] [place] [address] [place] RBC (Bld) [#/Vol] 3.67 10*6/uL Low 4.20-6.00 [facility] Comment on above: Order Comment: Speci men Type: BLOOD SPECIMENOrdering Facility: [facility] Address: [address] [place] [address] Performed By: #### 3 1201-7, 42215-8 ####[facility] LABCLIA [id number] [place] [address] [place] WBC (Bld) [#/Vol] 4.84 10*3/uL Normal 3.70-11.00 [facility] Comment on above: Order Comment: Speci men Type: BLOOD SPECIMENOrdering Facility: [facility] Address: [address] [place] [address] Performed By: #### 3 1201-7, 49853-9 ####[facility] LABCLIA [id number] [place] [address] [place] CNCRITCRon 11-28-2024 CNCRITCR Normal [facility] CNPNon 11-28-2024 CNPN Normal [facility] CONFIRM BLOOD TYPEon 025 ABO O Normal [facility] Comment on above: Order Comment: Speci men Type: BLOOD SPECIMENOrdering Facility: [facility] Address: [address] [place] [address] Performed By: #### C ONABO ####[facility] BLO[facility] BANKCLIA [id number] [place] [address] [place] Rh Nom (Bld) Negative Normal [facility] Comment on above: Order Comment: Speci men Type: BLOOD SPECIMENOrdering Facility: [facility] Address: [address] [place] [address] Performed By: #### C ONABO ####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 There has been interval enlargement of the [place] lumen consistent with a hemodynamically significant leak. Enlargement pancreatic cystic mass. When condition permits suggest correlation with contrast enhanced pancreatic MRI. Diverticulosis Urinary bladder diverticulum. English Lecturer: NATALY Transcribe Date/Time: Nov 28 2024 4:21P Dictated by : TONE GA MD This examination was interpreted and the report reviewed and electronically signed by: TONE GA MD on Nov 28 2024 4:40PM [facility] DIVISION OF RADIOLOGY * * *Final Report* * * DATE OF EXAM: Nov 28 2024 3:49PM [facility] 0530 - CT ABD/PEL W IVCON / [...] endoluminal stenting. The maximal diameter of the [place] abdominal aorta is 6.0 x 6.0 cm. This is enlarged from prior dimensions of 5.4 x 5.6 cm. There is irregular contrast enhancement in the LEFT side of the [place] lumen similar to prior study. The enhancement [...] Localizer images: Unremarkable. DIVISION OF RADIOLOGY Provider, Yamila Inocente [facility] - 11/28/2024 * * *Final Report* * * DATE OF EXAM: Nov 28 2024 3:49PM [facility] 0530 - CT ABD/PEL W IVCON / [...] endoluminal stenting. The maximal diameter of the [place] abdominal aorta is 6.0 x 6.0 cm. This is enlarged from prior dimensions of 5.4 x 5.6 cm. There is irregular contrast enhancement in the LEFT side of the [place] lumen similar to prior study. The enhancement [...] There has been interval enlargement of the [place] lumen consistent with a hemodynamically significant leak. Enlargement pancreatic cystic mass. When condition permits suggest correlation with contrast enhanced pancreatic MRI. Diverticulosis Urinary bladder diverticulum. English Lecturer: [facility] Transcribe Date/Time: Nov 28 2024 4:21P Dictated by : TONE GA MD This examination was interpreted and the report reviewed and electronically signed by: TONE GA MD on Nov 28 2024 4:40PM EST [facility] Radiology Study observation (narrative) [facility] CT Abdomen and Pelvis W cont rast IVOrdered By: Ccf Provider on 11-28-2024 [facility] Carbon dioxide, total [Moles /volume] in Central venous bloodOrdered By: Nate Gray on 11-28-2024 CO2 [Moles/Vol] 24.5 mmol/L 21.0-32.0 [facility] Chloride assayOrdered By: Emory Gray on 11-28-2024 Chloride [Moles/Vol] 99 mmol/L 98-108 [facility] Comprehensive Metabolic Prof ilon 11-28-2024 Albumin [Mass/Vol] 4.0 g/dL Normal 3.4-4.8 [facility] Comment on above: Performed By: #### L 500.4050, L501.2450, L100.0100, BTS ####[facility] [address] [place], [address] Albumin/Globulin [Mass ratio] 1.3 {ratio} Normal 0.9-2.4 [facility] Comment on above: Performed By: #### L 500.4050, L501.2450, L100.0100, BTS ####[facility] [address] [place], [address] ALK PHOS 66 U/L Normal 40-129 [facility] Comment on above: Performed By: #### L 500.4050, L501.2450, L100.0100, BTS ####[facility] [address] [place], [address] ALT [Catalytic activity/Vol] 24 U/L Normal <=46 [facility] Comment on above: Performed By: #### L 500.4050, L501.2450, L100.0100, BTS ####[facility] [address] [place], [address] AST [Catalytic activity/Vol] 33 U/L Normal <=37 [facility] Comment on above: Performed By: #### L 500.4050, L501.2450, L100.0100, BTS ####[facility] [address] [place], [address] Bilirubin [Mass/Vol] 0.47 mg/dL Normal 0.00-1.30 [facility] Comment on above: Performed By: #### L 500.4050, L501.2450, L100.0100, BTS ####[facility] [address] [place], [address] BUN/CRE 26.9 RATIO High 10-20 [facility] Comment on above: Performed By: #### L 500.4050, L501.2450, L100.0100, BTS ####[facility] [address] [place], [address] Calcium [Mass/Vol] 9.4 mg/dL Normal 7.6-11.0 [facility] Comment on above: Performed By: #### L 500.4050, L501.2450, L100.0100, BTS ####[facility] [address] [place], [address] Chloride [Moles/Vol] 99 mmol/L Normal 98-108 [facility] Comment on above: Performed By: #### L 500.4050, L501.2450, L100.0100, BTS ####[facility] [address] [place], [address] CO2 [Moles/Vol] 24.5 mmol/L Normal 21.0-32.0 [facility] Comment on above: Performed By: #### L 500.4050, L501.2450, L100.0100, BTS ####[facility] [address] [place], [address] Creatinine [Mass/Vol] 1.43 mg/dL High 0.70-1.20 [facility] Comment on above: Performed By: #### L 500.4050, L501.2450, L100.0100, BTS ####[facility] [address] [place], [address] ECRCL 37.20 ml/min Low 50-250 [facility] Comment on above: Performed By: #### L 500.4050, L501.2450, L100.0100, BTS ####[facility] [address] [place], [address] GAP 13 Normal 5-15 [facility] Comment on above: Performed By: #### L 500.4050, L501.2450, L100.0100, BTS ####[facility] [address] [place], [address] GFR/1.73 sq M.predicted among non-blacks MDRD (S/P/Bld) [Vol rate/Area] 48 mL/min/{1.73_m2} Low >60 [facility] Comment on above: Result Comment: mL/m in/1.73m2 CKD-EPI Creatinine Equation (2020) Performed By: #### L 500.4050, L501.2450, L100.0100, BTS ####[facility] [address] [place], [address] Globulin (S) [Mass/Vol] 3.2 g/dL Normal 2.2-4.2 [facility] Comment on above: Performed By: #### L 500.4050, L501.2450, L100.0100, BTS ####[facility] [address] [place], [address] Glucose [Mass/Vol] 140 mg/dL High 70-99 [facility] Comment on above: Performed By: #### L 500.4050, L501.2450, L100.0100, BTS ####[facility] [address] [place], [address] Potassium [Moles/Vol] 4.0 mmol/L Normal 3.3-5.1 [facility] Comment on above: Performed By: #### L 500.4050, L501.2450, L100.0100, BTS ####[facility] [address] [place], [address] Sodium [Moles/Vol] 137 mmol/L Normal 133-145 [facility] Comment on above: Performed By: #### L 500.4050, L501.2450, L100.0100, BTS ####[facility] [address] [place], [address] T PROT 7.2 g/dL Normal 5.9-8.4 [facility] Comment on above: Performed By: #### L 500.4050, L501.2450, L100.0100, BTS ####[facility] [address] [place], [address] Urea nitrogen [Mass/Vol] 39 mg/dL High 4-19 [facility] Comment on above: Performed By: #### L 500.4050, L501.2450, L100.0100, BTS ####[facility] [address] [place], [address] Comprehensive metabolic 2000 panelon 11-28-2024 Albumin [Mass/Vol] 3.6 g/dL Low 3.9-4.9 [facility] Comment on above: Order Comment: Speci men Type: BLOOD SPECIMENOrdering Facility: [facility] Address: [address] [place] [address] Performed By: #### 3 016-3, 12347-0, HSTNT, 3023-7 ####[facility] [id number] [address] [address] [place] ALP [Catalytic activity/Vol] 66 U/L Normal 38-113 [facility] Comment on above: Order Comment: Speci men Type: BLOOD SPECIMENOrdering Facility: [facility] Address: [address] [place] [address] Performed By: #### 3 016-3, 76817-9, HSTNT, 3023-7 ####[facility] LABIA [id number] [address] [address] [place] ALT [Catalytic activity/Vol] 21 U/L Normal 10-54 [facility] Comment on above: Order Comment: Speci men Type: BLOOD SPECIMENOrdering Facility: [facility] Address: [address] [place] [address] Performed By: #### 3 016-3, 68707-7, HSTNT, 302-7 ####[facility] LABCLIA [id number] [address] [address] [place] Anion gap [Moles/Vol] 10 mmol/L Normal 8-15 [facility] Comment on above: Order Comment: Speci men Type: BLOOD SPECIMENOrdering Facility: [facility] Address: [address] [place] [address] Performed By: #### 3 016-3, 57797-4, HSTNT, 7 ####[facility] LABCLIA [id number] [address] [address] [place] AST [Catalytic activity/Vol] 24 U/L Normal 14-40 [facility] Comment on above: Order Comment: Speci men Type: BLOOD SPECIMENOrdering Facility: [facility] Address: [address] [place] [address] Performed By: #### 3 016-3, 13089-0, HSTNT, 7 ####[facility] LABCLIA [id number] [address] [address] [place] Bilirubin [Mass/Vol] 0.3 mg/dL Normal 0.2-1.3 [facility] Comment on above: Order Comment: Speci men Type: BLOOD SPECIMENOrdering Facility: [facility] Address: [address] [place], [place] [address] Performed By: #### 3 016-3, 49915-2, HSTNT, 7 ####[facility] LABCLIA [id number] [address] [address] [place] Calcium [Mass/Vol] 8.8 mg/dL Normal 8.5-10.2 [facility] Comment on above: Order Comment: Speci men Type: BLOOD SPECIMENOrdering Facility: [facility] Address: [address] [place], [place] [address] Performed By: #### 3 016-3, 89610-7, HSTNT, 3023-7 ####[facility] LABCLIA [id number] [address] [address] [place] Chloride [Moles/Vol] 102 mmol/L Normal 98-107 [facility] Comment on above: Order Comment: Speci men Type: BLOOD SPECIMENOrdering Facility: [facility] Address: [address] [place] [address] Performed By: #### 3 016-3, 13815-6, HSTNT, 3024-7 ####[facility] LABIA [id number] [place] [address] [place] CO2 [Moles/Vol] 26 mmol/L Normal 22-30 [facility] Comment on above: Order Comment: Speci men Type: BLOOD SPECIMENOrdering Facility: [facility] Address: [address] [place] [address] Performed By: #### 3 016-3, 81304-9, HSTNT, 3024-7 ####[facility] LABIA [id number] [place] [address] [place] Creatinine [Mass/Vol] 1.56 mg/dL High 0.73-1.22 [facility] Comment on above: Order Comment: Speci men Type: BLOOD SPECIMENOrdering Facility: [facility] Address: [address] [place] [address] Performed By: #### 3 016-3, 54576-4, HSTNT, 3024-7 ####[facility] LABIA [id number] [place] [address] [place] Creatinine and Glomerular filtration rate.predicted panel (S/P/Bld) 44 mL/min/1.73m??? Low >=60 [facility] Comment on above: Order Comment: Speci men Type: BLOOD SPECIMENOrdering Facility: [facility] Address: [address] [place] [address] Result Comment: [place]eara mated Glomerular Filtration Rate [...] reflect actual GFR. Performed By: #### 3 016-3, 06652-2, HSTNT, 3023-7 ####[facility] LABCLIA [id number] [address] [address] [place] Glucose [Mass/Vol] 120 mg/dL High 74-99 [facility] Comment on above: Order Comment: Speci men Type: BLOOD SPECIMENOrdering Facility: [facility] Address: [address] [place] [address] Result Comment: The [place] [employer] (ADA) provides guidance for cutoff [...] Standards of Medical Care in Diabetes 2016, [place] [employer]. Diabetes Care. 2016.39(Suppl 1). Performed By: #### 3 016-3, 01219-5, HSTNT, 3024-03 ####[facility] LABCLIA [id number] [address] [address] [place] Protein [Mass/Vol] 6.3 g/dL Normal 6.3-8.0 [facility] Comment on above: Order Comment: [place] men Type: BLOOD SPECIMENOrdering Facility: [facility] Address: [address] [place] [address] Performed By: #### 3 016-3, 68271-5, HSTNT, 3023-7 ####[facility] LABCLIA [id number] [place] [address] [place] Sodium [Moles/Vol] 138 mmol/L Normal 136-144 [facility] Comment on above: Order Comment: Speci men Type: BLOOD SPECIMENOrdering Facility: [facility] Address: [address] [place] [address] Performed By: #### 3 016-3, 03120-9, HSTNT, 3024-7 ####[facility] LABCLIA [id number] [place] [address] [place] Urea nitrogen [Mass/Vol] 41 mg/dL High 9-24 [facility] Comment on above: Order Comment: Speci men Type: BLOOD SPECIMENOrdering Facility: [facility] Address: [address] [place] [address] Performed By: #### 3 016-3, 26778-9, HSTNT, 3024-7 ####[facility] LABCLIA [id number] [place] [id number] [place] ECG COMPLETEon 11-28-2024 ECG COMPLETE Normal [facility] ECHO LIMITEDon 11-28-2024 ECHO LIMITED Normal [facility] Emergency Department Summary on 11-28-2024 Emergency Department Summary Normal [facility] Eosinophil percentageOrdered By: Nate Gray on 11-28-2024 Eosinophils/100 WBC (Bld) 1.6 % 0-5 [facility] Epithelial cells.squamous LM Ql (Urine sed)Ordered By: Nate Gray on 11-28-2024 Epithelial cells.squamous LM.HPF (Urine sed) [#/Area] 0 /[HPF] 0-5 [facility] Erythrocyte distribution wid th ratioOrdered By: Nate Gray on 11-28-2024 Erythrocyte distribution width (RBC) [Ratio] 14.9 % High 11.6-14.6 [facility] Erythrocyte distribution wid th standard deviationOrdered By: Nate Gray on 11-28-2024 Erythrocyte distribution width (RBC) [Entitic vol] 51.1 fL High 35.1-43.9 [facility] Erythrocyte distribution width (RBC) [Ratio] 51.1 fl High 35.1-43.9 [facility] Erythrocyte morphology asses smentOrdered By: Nate Gray on 11-28-2024 RBC morphology finding Nom (Bld) N CHROM NORMAL NORM C&C [facility] Estimation of creatinine maira aranceOrdered By: Nate Gray on 11-28-2024 Estimated Creatinine Clearance Calc 37.20 ml/min Low 50-250 [facility] GFR/1.73 sq M.predicted gabi g non-blacks MDRD (S/P/Bld) [Vol rate/Area]Ordered By: Nate Gray on 11-28-2024 Estimated GFR (MDRD) Non-Af Amer 48 Low >60 [facility] Comment on above: mL/min/1.73m2 CKD-EP I Creatinine Equation (2020) Gas + CO Pnl BldVon 11-29-19 25 Potassium [Moles/Vol] 4.2 mmol/L Normal 3.7-5.1 [facility] Comment on above: Order Comment: Speci men Type: VENOUS BLOOD SPECIMENOrdering Facility: [facility] Address: [address] [place] [address] Performed By: #### 2 4344-4 ####[facility] LABCLIA [id number] [place] [address] [place] Order Comment: Speci men Type: BLOOD SPECIMENOrdering Facility: [facility] Address: [address] [place] [address] Performed By: #### 3 016-3, 44420-3, TNT, 3024-7 ####[facility] LABCLIA [id number] [place] [address] [place] Gas and Carbon monoxide pane l (BldV)on 11-28-2024 Base excess Calc (BldV) [Moles/Vol] 4 mmol/L High 0-2 [facility] Comment on above: Order Comment: Speci men Type: VENOUS BLOOD SPECIMENOrdering Facility: [facility] Address: [address] [place] [address] Performed By: #### 2 4344-4 ####[facility] LABCLIA [id number] [place] [address] [place] Body temperature 98.6 [degF] Normal [facility] Comment on above: Order Comment: Speci men Type: VENOUS BLOOD SPECIMENOrdering Facility: [facility] Address: [address] [place] [address] Performed By: #### 2 4344-4 ####[facility] LABCLIA [id number] [place] [address] [place] Calcium.ionized (Bld) [Mass/Vol] 1.24 mmol/L Normal 1.08-1.30 [facility] Comment on above: Order Comment: Speci men Type: VENOUS BLOOD SPECIMENOrdering Facility: [facility] Address: [address] [place] [address] Performed By: #### 2 4344-4 ####[facility] LABIA [id number] [place] [address] [place] Calcium.ionized adjusted to pH 7.4 (BldA) [Moles/Vol] 1.25 mmol/L Normal 1.08-1.30 [facility] Comment on above: Order Comment: Speci men Type: VENOUS BLOOD SPECIMENOrdering Facility: [facility] Address: [address] [place] [address] Performed By: #### 2 4344-4 ####[facility] LABCLIA [id number] [place] [address] [place] Carboxyhemoglobin (BldV) [Mass fraction] 1.6 % Normal 0.0-2.0 [facility] Comment on above: Order Comment: Speci men Type: VENOUS BLOOD SPECIMENOrdering Facility: [facility] Address: [address] [place] [address] Result Comment: Carb oxyhemoglobin Reference Range for Smokers: 2.0-8.0% Performed By: #### 2 4344-4 ####[facility] LABCLIA [id number] [address] [place] [address] [place] CO2 (BldV) [Partial pressure] 44 mm[Hg] Normal 42-55 [facility] Comment on above: Order Comment: Speci men Type: VENOUS BLOOD SPECIMENOrdering Facility: [facility] Address: [address] [place] [address] Performed By: #### 2 4344-4 ####[facility] LABCLIA [id number] [address], [facility]95 [place] Glucose [Mass/Vol] 119 mg/dL High 60-105 [facility] Comment on above: Order Comment: Speci men Type: VENOUS BLOOD SPECIMENOrdering Facility: [facility] Address: [address] [place] [address] Performed By: #### 2 4344-4 ####[facility] LABCLIA [id number] [place] [address] [place] HCO3 (Bld) [Moles/Vol] 28 mmol/L Normal 24-28 [facility] Comment on above: Order Comment: Speci men Type: VENOUS BLOOD SPECIMENOrdering Facility: [facility] Address: [address] [place] [address] Performed By: #### 2 4344-4 ####[facility] LABCLIA [id number] [place] [address] [place] Hematocrit (Bld) [Volume fraction] 35.6 % Low 39.0-51.0 [facility] Comment on above: Order Comment: Speci men Type: VENOUS BLOOD SPECIMENOrdering Facility: [facility] Address: [address] [place], [place] [address] Performed By: #### 2 4344-4 ####[facility] LABCLIA [id number] [place] [address] [place] Hemoglobin (Bld) [Mass/Vol] 11.5 g/dL Low 13.0-17.0 [facility] Comment on above: Order Comment: Speci men Type: VENOUS BLOOD SPECIMENOrdering Facility: [facility] Address: [address] [place] [address] Performed By: #### 2 4344-4 ####[facility] LABCLIA [id number] [address] [place] [address] [place] Lactate [Moles/Vol] 0.9 mmol/L Normal 0.5-2.2 [facility] Comment on above: Order Comment: Speci men Type: VENOUS BLOOD SPECIMENOrdering Facility: [facility] Address: [address] [place], [place] [address] Performed By: #### 2 4344-4 ####[facility] LABCLIA [id number] [place] [address] [place] LITERS 3 Liters/min Normal [facility] Comment on above: Order Comment: Speci men Type: VENOUS BLOOD SPECIMENOrdering Facility: [facility] Address: [address] [place], [place] [address] Performed By: #### 2 4344-4 ####[facility] LABCLIA [id number] [address], [facility] [place] Methemoglobin (Bld) [Mass fraction] 0.7 % Normal 0.0-1.5 [facility] Comment on above: Order Comment: Speci men Type: VENOUS BLOOD SPECIMENOrdering Facility: [facility] Address: [address] [place], [place] [address] Performed By: #### 2 4344-4 ####[facility] LABCLIA [id number] [place] [address] [place] O2 THERAPY NC = Nasal Cannula Normal [facility] Comment on above: Order Comment: Speci men Type: VENOUS BLOOD SPECIMENOrdering Facility: [facility] Address: [address] [place], [place] [address] Performed By: #### 2 4344-4 ####[facility] LABCLIA [id number] [id number] [address] [place] Oxygen (BldV) [Partial pressure] 53 mm[Hg] High 35-45 [facility] Comment on above: Order Comment: Speci men Type: VENOUS BLOOD SPECIMENOrdering Facility: [facility] Address: [address] [place] [address] Performed By: #### 2 4344-4 ####[facility] LABCLIA [id number] [place] [address] [place] Oxygen saturation in Venous blood 88 % High 60-85 [facility] Comment on above: Order Comment: Speci men Type: VENOUS BLOOD SPECIMENOrdering Facility: [facility] Address: [address] [place] [address] Performed By: #### 2 4344-4 ####[facility] LABCLIA [id number] [place] [id number] [place] Oxyhemoglobin (BldV) [Mass fraction] 86 % High 60-85 [facility] Comment on above: Order Comment: Speci men Type: VENOUS BLOOD SPECIMENOrdering Facility: [facility] Address: [address] [place] [address] Performed By: #### 2 4344-4 ####[facility] LABCLIA [id number] [place] [id number] [place] pH (BldV) 7.42 [pH] Normal 7.32-7.42 [facility] Comment on above: Order Comment: Speci men Type: VENOUS BLOOD SPECIMENOrdering Facility: [facility] Address: [address] [place] [address] Performed By: #### 2 4344-4 ####[facility] LABCLIA [id number] [place] [address] [place] Sodium [Moles/Vol] 137 mmol/L Normal 136-144 [facility] Comment on above: Order Comment: Speci men Type: VENOUS BLOOD SPECIMENOrdering Facility: [facility] Address: [address] [place] [address] Performed By: #### 2 4344-4 ####[facility] LABCLIA [id number] [place] [address] [place] Glomerular filtration rate ( GFR) estimation/1.73 sq m using serum, plasma, or whole bOrdered By: Nate Gray on 11-28-2024 GFR/1.73 sq M.predicted among non-blacks MDRD (S/P/Bld) [Vol rate/Area] 48 mL/min/{1.73_m2} Low >60 [facility] Comment on above: mL/min/1.73m2 CKD-EP I Creatinine Equation (2020) Glucose Ql (U)Ordered By: Emory Gray on 11-28-2024 Urine Glucose (UA) Normal mg/dl Normal [facility] HIGH SENSITIVITY TROPONIN To n 11-28-2024 Troponin T.cardiac High sensitivity method [Mass/Vol] 131 ng/L High <12 [facility] Comment on above: Order Comment: Speci men Type: BLOOD SPECIMENOrdering Facility: [facility] Address: [address] [place] [address] Performed By: #### 3 016-3, 46556-1, HSTNT, 3024-7 ####[facility] LABIA [id number] [place] [address] [place] HISTORY PHYSICALon 5 HISTORY PHYSICAL Normal [facility] HIV 1+2 Ab IA Qlon 5 HIV 1 and 2 Ab IA.rapid Nom (S/P/Bld) Normal [facility] Comment on above: Order Comment: Speci men Type: BLOOD SPECIMENOrdering Facility: [facility] Address: [address] [place] [address] Result Comment: Test not indicated. Performed By: #### 3 1201-7, 74637-2 ####[facility] LABCLIA [id number] [place] [address] [place] HIV 1+2 Ab+HIV1 p24 Ag IA Ql Non-Reactive Normal Nonreactive [facility] Comment on above: Order Comment: Speci men Type: BLOOD SPECIMENOrdering Facility: [facility] Address: [address] [place] [address] Performed By: #### 3 1201-7, 99385-1 ####[facility] LABCLIA [id number] [place] [address] [place] HIV immunoassay testing algorithm interpretation (S/P/Bld) [Interp] Normal [facility] Comment on above: Order Comment: Speci men Type: BLOOD SPECIMENOrdering Facility: [facility] Address: [address] [place] [address] Result Comment: No e vidence of HIV-1 or HIV-2 infection. Should recent infection be suspected, repeat testing may be considered 2-3 weeks after this draw.[place] Rev. Code 3701.243(E): This information has been [...] or diagnoses. Performed By: #### 3 1201-7, 53418-1 ####[facility] LABCLIA [id number] [place] [address] [place] Hematocrit Auto (Bld) [Volum e fraction]Ordered By: Nate Gray on 11-28-2024 Hematocrit (Bld) [Volume fraction] 38.5 % Low 40-54 [facility] Hemoglobin measurementOrdere d By: Nate Gray on 11-28-2024 Hemoglobin (Bld) [Mass/Vol] 12.4 g/dL Low 13.0-16.5 [facility] Immature granulocytes/100 WB C Auto (Bld)Ordered By: Nate Gray on 11-28-2024 Immature granulocytes/100 WBC (Bld) 0.400 % 0.0-0.9 [facility] Comment on above: IG% - Immature Granu locytes (promyelocytes, myelocytes and metamyelocytes) > 1% indicates that a LEFT SHIFT is Present. Ketones Test strip Ql (U)Ord ered By: Nate Gray on 11-28-2024 Ketones Ql (U) Negative Negative [facility] Laboratory - Chemistry and C hemistry - challengeOrdered By: Nate Gray on 11-28-2024 AST [Catalytic activity/Vol] 33 U/L <38 [facility] - Hematology and Cell countsOrdered By: Nate Gray on 11-28-2024 Anisocytosis Ql (Bld) RARE [facility] Lipaseon 11-28-2024 Lipase [Catalytic activity/Vol] 38 U/L Normal 13-75 [facility] Comment on above: Result Comment: Verona rose note:LIPASE revised reference range effective 22.New Lipase methodology. Expected to produce lower valuesthan the previous assay method.NEW Reference Range: 13 - 75 U/L Performed By: #### L 500.4050, L501.2450, L100.0100, BTS ####[facility] [address] [place], [address] Lipase measurementOrdered By : Nate Gray on 11-28-2024 Lipase [Catalytic activity/Vol] 38 U/L 13-75 [facility] Comment on above: Please note:LIPASE r evised reference range effective 22. New Lipase methodology. Expected to produce lower values than the previous assay method. NEW Reference Range: 13 - 75 U/L Lymphocytes Auto (Unsp spec) [#/Vol]Ordered By: Nate Gray on 11-28-2024 Lymphocytes (Bld) [#/Vol] 0.86 10*3/uL 0.83-4.51 [facility] Lymphocytes/100 WBC Auto (Un sp spec)Ordered By: Nate Gray on 11-28-2024 Lymphocytes/100 WBC (Bld) 17.0 % Low 19-41 [facility] MCV (mean corpuscular volume ) determinationOrdered By: Nate Gray on 11-28-2024 MCV (RBC) [Entitic vol] 92.8 fL 80-94 [facility] Macrocytes Ql (Bld)Ordered B y: Nate Gray on 11-28-2024 Macrocytosis RARE [facility] Macrocytes detectionOrdered By: Nate Gray on 11-28-2024 Macrocytes Ql (Bld) RARE [facility] Manual differential comment Juvenal (Bld) [Interp]Ordered By: Nate Gray on 11-28-2024 Differential Comment SEE COMMENT [facility] Comment on above: THROMBOCYTOPENIA NOT ED Mean corpuscular hemoglobin (MCH) determinationOrdered By: Nate Gray on 11-28-2024 MCH (RBC) [Entitic mass] 29.9 pg 27.0-32.0 [facility] Mean corpuscular hemoglobin concentration (MCHC) determinationOrdered By: Nate Gray on 11-28-2024 MCHC (RBC) [Mass/Vol] 32.2 g/dL 32-36 [facility] Mean platelet volume determi nationOrdered By: Nate Gray on 11-28-2024 Platelet mean volume (Bld) [Entitic vol] 10.4 fL 6.2-12.0 [facility] Microscopic analysis of urin e for red blood cells (RBC)Ordered By: Nate Gray on 11-28-2024 Microscopic analysis of urine for red blood cells (RBC) 0-5 SEEN /hpf 0-5 [facility] Urine RBC 0-5 SEEN /hpf 0-5 [facility] Monocyte percentageOrdered B y: Nate Gray on 11-28-2024 Monocytes/100 WBC (Bld) 9.1 % 0-10 [facility] Mucus LM Ql (Urine sed)Order ed By: Nate Gray on 11-28-2024 Mucus Ql (Urine sed) 0 SEEN /hpf [facility] Neutrophil percentageOrdered By: Nate Gray on 11-28-2024 Neutrophils/100 WBC (Bld) 71.3 % High 47-70 [facility] Nitrite Test strip Ql (U)Ord ered By: Nate Gray on 11-28-2024 Nitrite Ql (U) Negative Negative [facility] Nucleated red blood cell per centageOrdered By: Nate Gray on 11-28-2024 Nucleated RBC/100 WBC (Bld) [Ratio] 0 % 0-5 [facility] Platelet countOrdered By: Emory Gray on 11-28-2024 Platelets (Bld) [#/Vol] 93 10*3/uL Low 150-450 [facility] Platelet estimateOrdered By: Nate Gray on 11-28-2024 Platelets LM Ql (Bld) MOD DEC ADEQ [facility] Platelets LM Ql (Bld)Ordered By: Nate Gray on 11-28-2024 Platelet Estimate MOD DEC [facility] Potassium (Unsp spec) [Mass/ Vol]Ordered By: Nate Gray on 11-28-2024 Potassium [Moles/Vol] 4.0 mmol/L 3.3-5.1 [facility] Potassium measurement (mass/ volume)Ordered By: Nate Gray on 11-28-2024 Potassium (Unsp spec) [Mass/Vol] 4.0 mmol/L 3.3-5.1 [facility] Protein Test strip Ql (U)Ord ered By: Nate Gray on 11-28-2024 Protein Ql (U) 15 mg/dl High Negative [facility] RBC Auto (Bld) [#/Vol]Ordere d By: Nate Gray on 11-28-2024 RBC (Bld) [#/Vol] 4.15 10*6/uL Low 4.6-6.2 [facility] RBC morphology finding Nom ( Bld)Ordered By: Nate Gray on 11-28-2024 Red Blood Cell Morphology N CHROM NORMAL NORM C&C [facility] STAPHYLOCOCCUS AUREUS AND MR SA SCREEN, PCR, NASALon 11-28-2024 S. aureus and MRSA panel ELIZABETH+probe (Nose) Not detected Normal Not Detected [facility] Comment on above: Order Comment: Speci men Type: SWABOrdering Facility: [facility] Address: [address] [place] [address] Performed By: #### S APCR ####[facility] LABCLIA [id number] [place] [address] [place] Serum creatinine measurement (mass/volume)Ordered By: Nate Gray on 11-28-2024 Creatinine [Mass/Vol] 1.43 mg/dL High 0.70-1.20 [facility] Serum globulin measurementOr dered By: Nate Gray on 11-28-2024 Globulin (S) [Mass/Vol] 3.2 g/dL 2.2-4.2 [facility] Serum glucose measurement (m ass/volume)Ordered By: Nate Gray on 11-28-2024 Glucose [Mass/Vol] 140 mg/dL High 70-99 [facility] Serum or plasma alanine delgado otransferase (ALT) measurementOrdered By: Nate Gray on 11-28-2024 ALT [Catalytic activity/Vol] 24 U/L <47 [facility] Serum or plasma albumin jossie urement (mass/volume)Ordered By: Nate Gray on 11-28-2024 Albumin [Mass/Vol] 4.0 g/dL 3.4-4.8 [facility] Serum or plasma albumin/glob ulin mass ratioOrdered By: Nate Gray on 11-28-2024 Albumin/Globulin [Mass ratio] 1.3 {ratio} 0.9-2.4 [facility] Serum or plasma alkaline silas sphatase measurementOrdered By: Nate Gray on 11-28-2024 ALP [Catalytic activity/Vol] 66 U/L 40-129 [facility] Serum or plasma calcium jossie urement (mass/volume)Ordered By: Ntae Gray on 11-28-2024 Calcium [Mass/Vol] 9.4 mg/dL 7.6-11.0 [facility] Serum or plasma urea nitroge n measurement (mass/volume)Ordered By: Nate Gray on 11-28-2024 Urea nitrogen [Mass/Vol] 39 mg/dL High 4-19 [facility] Sodium levelOrdered By: Nate Gray on 11-28-2024 Sodium [Moles/Vol] 137 mmol/L 133-145 [facility] Squamous epithelial cells de tection in urine sediment by light microscopyOrdered By: Nate Gray on 11-28-2024 Epithelial cells.squamous LM Ql (Urine sed) 0-5 SEEN /hpf 0-5 [facility] T4 Free SerPl-mCncon 025 Free T4 [Mass/Vol] 1.2 ng/dL Normal 0.9-1.7 [facility] Comment on above: Order Comment: Speci men Type: BLOOD SPECIMENOrdering Facility: [facility] Address: [address] [place] [address] Performed By: #### 3 016-3, 10582-5, HSTNT, 3024-7 ####[facility] LABCLIA [id number] [place] [address] [place] TSH SerPl-aCncon 11-28-2024 TSH Qn 9.100 m[IU]/L High 0.270-4.200 [facility] Comment on above: Order Comment: Speci men Type: BLOOD SPECIMENOrdering Facility: [facility] Address: [address] [place] [address] Performed By: #### 3 016-3, 62404-7, HSTNT, 3024-7 ####[facility] LABCLIA [id number] [place] [address] [place] TYPE + SCREENon 11-28-2024 ABO O Normal [facility] Comment on above: Order Comment: Speci men Type: BLOOD SPECIMENOrdering Facility: [facility] Address: [address] [place] [address] Performed By: #### T SCR ####[facility] BLOOD BANKCLIA [id number] [place] [address] [place] Rh Nom (Bld) Negative Normal [facility] Comment on above: Order Comment: Speci men Type: BLOOD SPECIMENOrdering Facility: [facility] Address: [address] [place] [address] Performed By: #### T SCR ####[facility] BLOOD BANKIA [id number] [place] [address] [place] TYPE AND SCREEN EXPIRATION 12/01/2024 23:59 Normal [facility] Comment on above: Order Comment: Speci men Type: BLOOD SPECIMENOrdering Facility: [facility] Address: [address] [place] [address] Performed By: #### T SCR ####[facility] BLOOD BANKCLIA [id number] [place] [address] [place] Total proteinOrdered By: Troy Gray on 11-28-2024 Protein [Mass/Vol] 7.2 g/dL 5.9-8.4 [facility] Type AND Screenon 11-28-2024 ABO and Rh group Nom (Bld) Blood group O Rh(D) negative Normal [facility] Comment on above: Order Comment: A Performed By: #### L 500.4050, L501.2450, L100.0100, BTS ####[facility] [address] [place], [address] Urinalysis, Completeon 11-28 EPI,SQUAMOUS 0-5 SEEN Normal 0-5 [facility] Comment on above: Order Comment: CLEAN CATCH Performed By: #### L 400.0001 ####[facility] [address] [place], [address] RBC 0-5 SEEN Normal 0-5 [facility] Comment on above: Order Comment: CLEAN CATCH Performed By: #### L 400.0001 ####[facility] [address] [place], [address] WBC 0-5 SEEN Normal 0-5 [facility] Comment on above: Order Comment: CLEAN CATCH Performed By: #### L 400.0001 ####[facility] [address] [place], [address] BACTERIA 0 SEEN Normal None Seen [facility] Comment on above: Order Comment: CLEAN CATCH Performed By: #### L 400.0001 ####[facility] [address] [place], [address] Mucus Ql (Urine sed) 0 SEEN Normal [facility] Comment on above: Order Comment: CLEAN CATCH Performed By: #### L 400.0001 ####[facility] [address] [place], [address] Urine blood detectionOrdered By: Nate Gray on 11-28-2024 Urine Occult Blood Negative Negative [facility] Urine clarityOrdered By: Troy Gray on 11-28-2024 Clarity (U) Sl. Cloudy Clear [facility] Urine color determinationOrd ered By: Nate Gray on 11-28-2024 Color (U) Yellow Yellow [facility] Urine glucose detectionOrder ed By: Nate Gray on 11-28-2024 Glucose Ql (U) Normal mg/dl Normal [facility] Urine leukocyte esterase det ection by dipstickOrdered By: Nate Gray on 11-28-2024 Leukocyte esterase Test strip Ql (U) Negative Negative [facility] Urine pHOrdered By: Nate Philip ght on 11-28-2024 pH (U) 6.5 [pH] 5.0 - 8.0 [facility] Urine sediment bacteria coun t by microscopy (number/high power field)Ordered By: Nate Gray on 11-28-2024 Bacteria LM.HPF (Urine sed) [#/Area] 0 /[HPF] None Seen [facility] Urine specific gravity measu rementOrdered By: Nate Gray on 11-28-2024 Specific gravity (U) [Rel density] 1.010 1.002-1.030 [facility] Urine urobilinogen measureme ntOrdered By: Nate Gray on 11-28-2024 Urobilinogen Ql (U) Normal mg/dl Normal [facility] Urobilinogen Ql (U)Ordered B y: Nate Gray on 11-28-2024 Urine Urobilinogen Normal mg/dl Normal [facility] White blood cell (WBC) count Ordered By: Nate Gray on 11-28-2024 WBC (Bld) [#/Vol] 5.1 10*3/uL 4.4-11.0 [facility] White blood cell countOrdere d By: Nate Gray on 11-28-2024 Urine WBC 0-5 SEEN /hpf 0-5 [facility] White blood cell count 0-5 SEEN /hpf 0-5 [facility] XR CHEST 1V FRONTAL PORTon 0 11-28-2024 XR CHEST 1V FRONTAL PORT Normal [facility] Bacteria Ur Culton Bacteria identified Cx Nom (U) ORGANISM ID: 1 <10,000 CFU/ml Normal urogenital heather Normal [facility] Comment on above: Performed By: #### 6 30-4 ####[facility] LABCLIA [id number] [place] [address] [place] Basic metabolic 2000 panelOr dered By: Lucille Glover on 11-27-2024 Anion gap [Moles/Vol] 10 mmol/L 8 - 15 mmol/L [facility] Calcium [Mass/Vol] 9.2 mg/dL 8.5 - 10. 2 mg/dL [facility] Chloride [Moles/Vol] 103 mmol/L 98 - 10 7 mmol/L [facility] CO2 [Moles/Vol] 26 mmol/L 22 - 30 mmol/L [facility] Creatinine [Mass/Vol] 1.26 mg/dL High 0.73 - 1.22 mg/dL [facility] GFR/1.73 sq M.predicted among non-blacks MDRD (S/P/Bld) [Vol rate/Area] 56 mL/min/{1.73_m2} Low - PINF [facility] Comment on above: Estimated Glomerular Filtration Rate [...] 104 mg/dL High 74 - 99 mg/dL [facility] Comment on above: The [place] [employer] Association (ADA) provides guidance for [...] Standards of Medical Care in Diabetes 2016, [place] [employer]. Diabetes Care. 2016.39(Suppl 1). Interpretation and review of laboratory results Abnormal [facility] Potassium [Moles/Vol] 4.1 mmol/L 3.7 - 5.1 mmol/L [facility] Sodium [Moles/Vol] 139 mmol/L 136 - 144 mmol/L [facility] Urea nitrogen [Mass/Vol] 35 mg/dL High 9 - 24 mg/dL [facility] Basic metabolic 2000 panelon 11-27-2024 Anion gap [Moles/Vol] 10 mmol/L Normal 8-15 [facility] Comment on above: Order Comment: Speci men Type: BLOOD SPECIMENOrdering Facility: [facility] Address: [address] [place] [address] Performed By: #### 2 4321-2 ####[facility] MILLTOWNCLIA [id number] [place] [address] [place] Calcium [Mass/Vol] 9.2 mg/dL Normal 8.5-10.2 [facility] Comment on above: Order Comment: Speci men Type: BLOOD SPECIMENOrdering Facility: [facility] Address: [address] [place] [address] Performed By: #### 2 4321-2 ####[facility] MILLWNCLIA [id number] [place] [address] [place] Chloride [Moles/Vol] 103 mmol/L Normal 98-107 [facility] Comment on above: Order Comment: Speci men Type: BLOOD SPECIMENOrdering Facility: [facility] Address: [address] [place] [address] Performed By: #### 2 4321-2 ####[facility] MILLWNCLIA [id number] [place] [address] [place] CO2 [Moles/Vol] 26 mmol/L Normal 22-30 [facility] Comment on above: Order Comment: Speci men Type: BLOOD SPECIMENOrdering Facility: [facility] Address: [address] [place] [address] Performed By: #### 2 4321-2 ####[facility] MILLWNCLIA [id number] [place] [address] [place] Creatinine [Mass/Vol] 1.26 mg/dL High 0.73-1.22 [facility] Comment on above: Order Comment: Ian lassiter Type: BLOOD SPECIMENOrdering Facility: [facility] Address: [address] [place] [address] Performed By: #### 2 4321-2 ####[facility] [id number] [place] [address] [place] Creatinine and Glomerular filtration rate.predicted panel (S/P/Bld) 56 mL/min/1.73m??? Low >=60 [facility] Comment on above: Order Comment: Ian lassiter Type: BLOOD SPECIMENOrdering Facility: [facility] Address: [address] [place] [address] Result Comment: [place] mated Glomerular Filtration Rate [...] actual GFR. Performed By: #### 2 4321-2 ####[facility] [id number] [place] [address] [place] Glucose [Mass/Vol] 104 mg/dL High 74-99 [facility] Comment on above: Order Comment: Ian lassiter Type: BLOOD SPECIMENOrdering Facility: [facility] Address: [address] [place] [address] Result Comment: The [place] Diabetes Association (ADA) provides guidance for cutoff [...] Standards of Medical Care in Diabetes 2016, [place] [employer]. Diabetes Care. 2016.39(Suppl 1). Performed By: #### 2 4321-2 ####[facility] LAUREEN RADHA [id number] [place] [address] [place] Potassium [Moles/Vol] 4.1 mmol/L Normal 3.7-5.1 [facility] Comment on above: Order Comment: Speci men Type: BLOOD SPECIMENOrdering Facility: [facility] Address: [address] [place] [address] Performed By: #### 2 4321-2 ####[facility]ITALCHARLYNila [id number] [place] [address] [place] Sodium [Moles/Vol] 139 mmol/L Normal 136-144 [facility] Comment on above: Order Comment: Speci men Type: BLOOD SPECIMENOrdering Facility: [facility] Address: [address] [place] [address] Performed By: #### 2 4321-2 ####[facility] S[facility]TH[facility] [id number] [place] [address] [place] Urea nitrogen [Mass/Vol] 35 mg/dL High 9-24 [facility] Comment on above: Order Comment: Speci men Type: BLOOD SPECIMENOrdering Facility: [facility] Address: [address] [place] [address] Performed By: #### 2 4321-2 ####[facility]IT[facility] [id number] [place] [address] [place] CBC panel Auto (Bld)on 11-27 Erythrocyte distribution width (RBC) [Ratio] 15 % 11.5 - 15.0 % [facility] Hematocrit (Bld) [Volume fraction] 37.7 % Low 39.0 - 51.0 % [facility] Hemoglobin (Bld) [Mass/Vol] 12.2 g/dL Low 13.0 - 17.0 g/dL [facility] Interpretation and review of laboratory results Abnormal [facility] MCH (RBC) [Entitic mass] 30.2 pg 26.0 - 34.0 pg [facility] MCHC (RBC) [Mass/Vol] 32.4 g/dL 30.5 - 36.0 g/dL [facility] MCV (RBC) [Entitic vol] 93.3 fL 80.0 - 100.0 fL [facility] Nucleated RBC (Bld) [#/Vol] NINF [facility] Platelet mean volume (Bld) [Entitic vol] 10.7 fL 9.0 - 12.7 fL [facility] Platelets (Bld) [#/Vol] 91 10*3/uL Low [facility] Comment on above: No clot detected. RBC (Bld) [#/Vol] 4.04 10*6/uL Low 4.20 - 6.0 0 m/uL [facility] WBC (Bld) [#/Vol] 5.57 10*3/uL [facility] Erythrocyte distribution width (RBC) [Ratio] 15.0 % Normal 11.5-15.0 [facility] Comment on above: Order Comment: Speci men Type: BLOOD SPECIMENOrdering Facility: [facility] Address: [address] [place] [address] Performed By: #### 5 8410-2 ####[facility] [id number] [place] [address] [place] Hematocrit (Bld) [Volume fraction] 37.7 % Low 39.0-51.0 [facility] Comment on above: Order Comment: Speci men Type: BLOOD SPECIMENOrdering Facility: [facility] Address: [address] [place], [place] [address] Performed By: #### 5 8410-2 ####[facility] [id number] [place] [address] [place] Hemoglobin (Bld) [Mass/Vol] 12.2 g/dL Low 13.0-17.0 [facility] Comment on above: Order Comment: Speci men Type: BLOOD SPECIMENOrdering Facility: [facility] Address: [address] [place] [address] Performed By: #### 5 8410-2 ####[facility] SIERRASKY [id number] [address] MCH (RBC) [Entitic mass] 30.2 pg Normal 26.0-34.0 [facility] Comment on above: Order Comment: Speci men Type: BLOOD SPECIMENOrdering Facility: [facility] Address: [address] [place] [address] Performed By: #### 5 8410-2 ####[facility] [id number] [address] STATES [facility] MCHC (RBC) [Mass/Vol] 32.4 g/dL Normal 30.5-36.0 [facility] Comment on above: Order Comment: Speci men Type: BLOOD SPECIMENOrdering Facility: [facility] Address: [address] [place] [address] Performed By: #### 5 8410-2 ####[facility]ITALNCA [id number] [address] STATES [facility] MCV (RBC) [Entitic vol] 93.3 fL Normal 80.0-100.0 [facility] Comment on above: Order Comment: Speci men Type: BLOOD SPECIMENOrdering Facility: [facility] Address: [address] [place] [address] Performed By: #### 5 8410-2 ####[facility]ITAL[facility]CL[facility] [id number] [address] [place] Nucleated RBC (Bld) [#/Vol] 10*3/uL Normal <0.01 [facility] Comment on above: Order Comment: Speci men Type: BLOOD SPECIMENOrdering Facility: [facility] Address: [address] [place] [address] Performed By: #### 5 8410-2 ####[facility]CL[facility] [id number] [place] [address] [place] Platelet mean volume (Bld) [Entitic vol] 10.7 fL Normal 9.0-12.7 [facility] Comment on above: Order Comment: Speci men Type: BLOOD SPECIMENOrdering Facility: [facility] Address: [address] [place] [address] Performed By: #### 5 8410-2 ####[facility]ITALNCLIA [id number] [place] [address] [place] Platelets (Bld) [#/Vol] 91 10*3/uL Low 150-400 [facility] Comment on above: Order Comment: Speci men Type: BLOOD SPECIMENOrdering Facility: [facility] Address: [address] [place] [address] Result Comment: No c lot detected. Performed By: #### 5 8410-2 ####[facility]ITALNCLIA [id number] [place] [address] [place] RBC (Bld) [#/Vol] 4.04 10*6/uL Low 4.20-6.00 [facility] Comment on above: Order Comment: Speci men Type: BLOOD SPECIMENOrdering Facility: [facility] Address: [address] [place] [address] Performed By: #### 5 8410-2 ####[facility]ITALNCLIA [id number] [place] [address] [place] WBC (Bld) [#/Vol] 5.57 10*3/uL Normal 3.70-11.00 [facility] Comment on above: Order Comment: Speci men Type: BLOOD SPECIMENOrdering Facility: [facility] Address: [address] [place] [address] Performed By: #### 5 8410-2 ####[facility]OSPITALNCNila [id number] [place] [address] [place] CNOVon 11-27-2024 CNOV Normal [facility] Lipase SerPl-cCncon 11-28-19 25 Lipase [Catalytic activity/Vol] 28 U/L Normal 16-61 [facility] Comment on above: Order Comment: Speci men Type: BLOOD SPECIMENOrdering Facility: [facility] Address: [address] [place] [address] Performed By: #### 3 3762-6, 3040-3, 57577-8 ####[facility] LABCLIA [id number] [place] [address] [place] Lipid 1996 panelon 5 Cholesterol [Mass/Vol] 169 mg/dL Normal <200 [facility] Comment on above: Order Comment: Speci men Type: BLOOD SPECIMENOrdering Facility: [facility] Address: [address] [place] [address] Result Comment: <200 mg/dL, Desirable 200-239 mg/dL, Borderline high>239 mg/dL, High Performed By: #### 3 3762-6, 3040-3, 63689-1 ####[facility] LABCLIA [id number] [address] [place] Cholesterol in HDL [Mass/Vol] 50 mg/dL Normal >39 [facility] Comment on above: Order Comment: Speci men Type: BLOOD SPECIMENOrdering Facility: [facility] Address: [address] [place] [address] Result Comment: 40-5 9 mg/dL, Acceptable>59 mg/dL, High: Negative risk factor for coronary heart disease<40 mg/dL, Low: Positive risk factor for coronary heart disease Performed By: #### 3 3762-6, 3040-3, 73252-9 ####[facility] LABCLIA [id number] [address] [address] [place] Cholesterol in LDL [Mass/Vol] 100 mg/dL High <100 [facility] Comment on above: Order Comment: Speci men Type: BLOOD SPECIMENOrdering Facility: [facility] Address: [address] [place] [address] Result Comment: <100 mg/dL, Optimal 100-129 mg/dL, Near optimal/above optimal 130-159 mg/dL, Borderline high 160-189 mg/dL, High>189 mg/dL, Very highSecondary prevention optimal LDL Cholesterol levels are recommended to be < 70 mg/dL Performed By: #### 3 3762-6, 3040-3, 64880-3 ####[facility] LABCLIA [id number] [facility] CENTERK [address] [address] [place] Cholesterol in LDL/Cholesterol in HDL [Mass ratio] 2.00 {ratio} Normal <2.54 [facility] Comment on above: Order Comment: Speci men Type: BLOOD SPECIMENOrdering Facility: [facility] Address: [address] [place] [address] Result Comment: Refe rence:1. National Cholesterol Education Program ATP III Guideline At-A-Glance Quick Desk Reference: National Heart, Lung, and Blood [place]. National Institutes of Health. 2001: NIH Publication No. 01-3305.2. An International Atherosclerosis Society position paper: global recommendations for the management of dyslipidemia: executive summary, Atherosclerosis. 2014: 232(2):410-413. Performed By: #### 3 3762-6, 3040-3, 88143-4 ####[facility] LABCLIA [id number] [facility] [address] [address] [place] Cholesterol in VLDL [Mass/Vol] 19 mg/dL Normal <30 [facility] Comment on above: Order Comment: Speci men Type: BLOOD SPECIMENOrdering Facility: [facility] Address: [address] [place] [address] Performed By: #### 3 3762-6, 3040-3, 61621-0 ####[facility] LABCLIA [id number] [facility] ERK [id number] [place] [address] [place] Cholesterol non HDL [Mass/Vol] 119 mg/dL Normal <130 [facility] Comment on above: Order Comment: Speci men Type: BLOOD SPECIMENOrdering Facility: [facility] Address: [address] [place] [address] Result Comment: <130 mg/dL, Optimal 130-159 mg/dL, Near optimal/above optimal 160-189 mg/dL, Borderline high 190-219 mg/dL, High>219 mg/dL, Very highSecondary prevention optimal non HDL Cholesterol levels are recommended to be <100 mg/dL Performed By: #### 3 3762-6, 3040-3, 98152-7 ####[facility] LABCLIA [id number] [place] [address] [place] Cholesterol.total/Cho lesterol in HDL [Mass ratio] 3.38 {ratio} Normal <5.10 [facility] Comment on above: Order Comment: Speci men Type: BLOOD SPECIMENOrdering Facility: [facility] Address: [address] [place] [address] Performed By: #### 3 3762-6, 3040-3, 69664-9 ####[facility] LABCLIA [id number] [place] [address] [place] FASTING TIME Normal [facility] Comment on above: Order Comment: Speci men Type: BLOOD SPECIMENOrdering Facility: [facility] Address: [address] [place] [address] Result Comment: Unkn own Performed By: #### 3 3762-6, 3040-3, 65612-5 ####[facility] LABCLIA [id number] [address] [address] [place] Triglyceride [Mass/Vol] 97 mg/dL Normal <150 [facility] Comment on above: Order Comment: Speci men Type: BLOOD SPECIMENOrdering Facility: [facility] Address: [address] [place] [address] Result Comment: <150 mg/dL, Normal 150-199 mg/dL, Borderline high 200-499 mg/dL, High>499 mg/dL, Very high Performed By: #### 3 3762-6, 3040-3, 22248-4 ####[facility] LABCLIA [id number] [place] [address] [place] NT-proBNP SerPl-mCncon 11-27 Natriuretic peptide.B prohormone N-Terminal [Mass/Vol] 1180 pg/mL High <450 [facility] Comment on above: Order Comment: Speci men Type: BLOOD SPECIMENOrdering Facility: [facility] Address: [address] [place] [address] Performed By: #### 3 3762-6, 3040-3, 40262-4 ####[facility] LABIA [id number] [address] [place] TSH SerPl-aCncon 11-27-2024 TSH Qn 8.680 m[IU]/L High 0.270-4.200 [facility] Comment on above: Order Comment: Speci men Type: BLOOD SPECIMENOrdering Facility: [facility] Address: [address] [place] [address] Performed By: #### 3 016-3 ####[facility] [id number] [place] [address] [place] UA DIP, URINE (POC)on 2024 BILIRUBIN UA (POCT) Negative Negative [facility] CLARITY UA (POCT) Clear [facility] COLOR UA (POCT) Yellow [facility] GLUCOSE UA (POCT) Negative Negative mg/dL [facility] Hemoglobin Ql (U) Negative Negative [facility] Interpretation and review of laboratory results Abnormal [facility] KETONE UA (POCT) Negative Negative mg/dL [facility] LEUKOCYTES UA (POCT) Negative Negative [facility] NITRITE UA (POCT) Negative Negative [facility] PH UA (POCT) 6 4.5 - 8.0 [facility] Protein Ql (U) Trace Abnormal Negative mg/dL [facility] SPECIFIC GRAVITY UA (POCT) 1.02 1.005 - 1.030 [facility] UROBILINOGEN UA (POCT) 0.2 Normal E.U./dL [facility] Location: [place], [address] [facility], [place], [address] [facility] POINT OF CARE [facility] CNTHERAPYon 11-24-2024 CNTHERAPY Normal [facility] [id number] 11-21-2024 [id number] Normal [facility] CNTHERAPYon 11-21-2024 CNTHERAPY Normal [facility] THERAPY NTon 11-21-2024 THERAPY NT Normal [facility] CNOVon 11-09-2024 CNOV Normal [facility] CNOVon 11-07-2024 CNOV Normal [facility] Surgery Visit Reporton 09-15 Surgery Visit Report Normal [facility] CNPNon 09-08-2024 CNPN Normal [facility] CNOVon 09-07-2024 CNOV Normal [facility] T3 SerPl-mCncon 09-07-2024 T3 [Mass/Vol] 69 ng/dL Low 79-165 [facility] Comment on above: Order Comment: Speci men Type: BLOOD SPECIMENOrdering Facility: [facility] Address: [address] [place] [address] Performed By: #### 3 053-6, 7 ####[facility] LABIA [id number] [place] [address] [place] T4 Free SerPl-mCncon 024 Free T4 [Mass/Vol] 1.3 ng/dL Normal 0.9-1.7 [facility] Comment on above: Order Comment: Speci men Type: BLOOD SPECIMENOrdering Facility: [facility] Address: [address] [place] [address] Performed By: #### 3 053-6, 3027 ####[facility] LABCLIA [id number] [place] [id number] [place] Discharge Instructionon 08-20 Discharge Instruction Normal [facility] MR/POSTOP.ANEon 08-31-2024 MR/POSTOP.ANE Normal [facility] MR/[id number] 08-31-2024 MR/POSTOPAN2 Normal [facility] Operative Reporton Operative Report Normal [facility] CNPTOUTREACHon 08-28-2024 CNPTOUTREACH Normal [facility] CNPTOUTREACHon 08-24-2024 CNPTOUTREACH Normal [facility] CBC panel Auto (Bld)on 08-04 Erythrocyte distribution width (RBC) [Ratio] 14.7 % Normal 11.5-15.0 [facility] Comment on above: Order Comment: Speci men Type: BLOOD SPECIMENOrdering Facility: [facility] Address: [address] [place] [address] Performed By: #### 5 8410-2 ####[facility] LABIA [id number] [place] [address] [place] Hematocrit (Bld) [Volume fraction] 37.4 % Low 39.0-51.0 [facility] Comment on above: Order Comment: Speci men Type: BLOOD SPECIMENOrdering Facility: [facility] Address: [address] [place] [address] Performed By: #### 5 8410-2 ####[facility] LABIA [id number] [place] [address] [place] Hemoglobin (Bld) [Mass/Vol] 11.9 g/dL Low 13.0-17.0 [facility] Comment on above: Order Comment: Speci men Type: BLOOD SPECIMENOrdering Facility: [facility] Address: [address] [place] [address] Performed By: #### 5 8410-2 ####[facility] LABIA [id number] [place] [address] [place] MCH (RBC) [Entitic mass] 30.1 pg Normal 26.0-34.0 [facility] Comment on above: Order Comment: Speci men Type: BLOOD SPECIMENOrdering Facility: [facility] Address: [address] [place] [address] Performed By: #### 5 8410-2 ####[facility] LABCLIA [id number] [place] [address] [place] MCHC (RBC) [Mass/Vol] 31.8 g/dL Normal 30.5-36.0 [facility] Comment on above: Order Comment: Speci men Type: BLOOD SPECIMENOrdering Facility: [facility] Address: [address] [place] [address] Performed By: #### 5 8410-2 ####[facility] LABIA [id number] [place] [address] [place] MCV (RBC) [Entitic vol] 94.4 fL Normal 80.0-100.0 [facility] Comment on above: Order Comment: Speci men Type: BLOOD SPECIMENOrdering Facility: [facility] Address: [address] [place] [address] Performed By: #### 5 8410-2 ####[facility] LABIA [id number] [place] [address] [place] Nucleated RBC (Bld) [#/Vol] 10*3/uL Normal <0.01 [facility] Comment on above: Order Comment: Speci men Type: BLOOD SPECIMENOrdering Facility: [facility] Address: [address] [place] [address] Performed By: #### 5 8410-2 ####[facility] LABCLIA [id number] [place] [address] [place] Platelet mean volume (Bld) [Entitic vol] 12.3 fL Normal 9.0-12.7 [facility] Comment on above: Order Comment: Speci men Type: BLOOD SPECIMENOrdering Facility: [facility] Address: [address] [place] [address] Performed By: #### 5 8410-2 ####[facility] LABCLIA [id number] [place] [address] [place] Platelets (Bld) [#/Vol] 88 10*3/uL Low 150-400 [facility] Comment on above: Order Comment: Speci men Type: BLOOD SPECIMENOrdering Facility: [facility] Address: [address] [place] [address] Result Comment: No c lot detected. Performed By: #### 5 8410-2 ####[facility] LABIA [id number] [place] [address] [place] RBC (Bld) [#/Vol] 3.96 10*6/uL Low 4.20-6.00 [facility] Comment on above: Order Comment: Speci men Type: BLOOD SPECIMENOrdering Facility: [facility] Address: [address] [place] [address] Performed By: #### 5 8410-2 ####[facility] LABIA [id number] [place] [address] [place] WBC (Bld) [#/Vol] 5.07 10*3/uL Normal 3.70-11.00 [facility] Comment on above: Order Comment: Speci men Type: BLOOD SPECIMENOrdering Facility: [facility] Address: [address] [place] [address] Performed By: #### 5 8410-2 ####[facility] LABIA [id number] [place] [address] [place] Comprehensive metabolic 2000 panelon 08-04-2024 Albumin [Mass/Vol] 3.7 g/dL Low 3.9-4.9 [facility] Comment on above: Order Comment: Speci men Type: BLOOD SPECIMENOrdering Facility: [facility] Address: [address] [place] [address] Performed By: #### 2 4323-8, 3016-3, 15025-3 ####[facility] LABCLIA [id number] [place] [address] [place] ALP [Catalytic activity/Vol] 44 U/L Normal 38-113 [facility] Comment on above: Order Comment: Speci men Type: BLOOD SPECIMENOrdering Facility: [facility] Address: [address] [place] [address] Performed By: #### 2 4323-8, 3016-3, 00906-2 ####[facility] LABCLIA [id number] [place] [address] [place] ALT [Catalytic activity/Vol] 22 U/L Normal 10-54 [facility] Comment on above: Order Comment: Speci men Type: BLOOD SPECIMENOrdering Facility: [facility] Address: [address] [place] [address] Performed By: #### 2 4323-8, 3016-3, 73223-9 ####[facility] LABCLIA [id number] [place] [address] [place] Anion gap [Moles/Vol] 9 mmol/L Normal 8-15 [facility] Comment on above: Order Comment: Speci men Type: BLOOD SPECIMENOrdering Facility: [facility] Address: [address] [place] [address] Performed By: #### 2 4323-8, 6-3, 83507-1 ####[facility] LABCLIA [id number] [place] [address] [place] AST [Catalytic activity/Vol] 25 U/L Normal 14-40 [facility] Comment on above: Order Comment: Speci men Type: BLOOD SPECIMENOrdering Facility: [facility] Address: [address] [place] [address] Performed By: #### 2 4323-8, 3016-3, 62227-5 ####[facility] LABCLIA [id number] [place] [address] [place] Bilirubin [Mass/Vol] 0.6 mg/dL Normal 0.2-1.3 [facility] Comment on above: Order Comment: Speci men Type: BLOOD SPECIMENOrdering Facility: [facility] Address: [address] [place], [place] [address] Performed By: #### 2 4323-8, 6-3, 35122-8 ####[facility] LABCLIA [id number] [facility] [address] [place] Calcium [Mass/Vol] 9.4 mg/dL Normal 8.5-10.2 [facility] Comment on above: Order Comment: Speci men Type: BLOOD SPECIMENOrdering Facility: [facility] Address: [address] [place] [address] Performed By: #### 2 4323-8, 3015-3, 44010-8 ####[facility] LABCLIA [id number] [facility] [place] [address] [place] Chloride [Moles/Vol] 102 mmol/L Normal 98-107 [facility] Comment on above: Order Comment: Speci men Type: BLOOD SPECIMENOrdering Facility: [facility] Address: [address] [place], [place] [address] Performed By: #### 2 4323-8, 3015-3, ####[facility] LABCLIA [id number] [address] [facility]ITALLID AVENUEROBERT F. KENNEDY MEDICAL CENTERK [place] [id number] [place] CO2 [Moles/Vol] 28 mmol/L Normal 22-30 [facility] Comment on above: Order Comment: Speci men Type: BLOOD SPECIMENOrdering Facility: [facility] Address: [address] [place] [address] Performed By: #### 2 4323-8, 6-3, 16380-5 ####[facility] LABCLIA [id number] [facility] AVENUEDESK [address] [address] [place] Creatinine [Mass/Vol] 1.55 mg/dL High 0.73-1.22 [facility] Comment on above: Order Comment: Speci men Type: BLOOD SPECIMENOrdering Facility: [facility] Address: [address] [place] [address] Performed By: #### 2 4323-8, 3016-3, 81514-5 ####[facility] LABCLIA [id number] [place] [address] [place] Creatinine and Glomerular filtration rate.predicted panel (S/P/Bld) 44 mL/min/1.73m??? Low >=60 [facility] Comment on above: Order Comment: Ian lassiter Type: BLOOD SPECIMENOrdering Facility: [facility] Address: [address] [place] [address] Result Comment: [place] mated Glomerular Filtration Rate [...] actual GFR. Performed By: #### 2 4323-8, 3016-3, 52959-9 ####[facility] LABIA [id number] [place] [address] [place] Glucose [Mass/Vol] 101 mg/dL High 74-99 [facility] Comment on above: Order Comment: Ian lassiter Type: BLOOD SPECIMENOrdering Facility: [facility] Address: [address] [place] [address] Result Comment: The [place] [employer] (ADA) provides guidance for cutoff [...] Standards of Medical Care in Diabetes 2016, [place] [employer]. Diabetes Care. 2016.39(Suppl 1). Performed By: #### 2 4323-8, 6-3, 22387-6 ####[facility] LABCLIA [id number] [address] [address] [place] Potassium [Moles/Vol] 4.5 mmol/L Normal 3.7-5.1 [facility] Comment on above: Order Comment: Speci men Type: BLOOD SPECIMENOrdering Facility: [facility] Address: [address] [place] [address] Performed By: #### 2 4323-8, 3015-3, 26973-0 ####[facility] LABCLIA [id number] [address] [address] [place] Protein [Mass/Vol] 6.8 g/dL Normal 6.3-8.0 [facility] Comment on above: Order Comment: Speci men Type: BLOOD SPECIMENOrdering Facility: [facility] Address: [address] [place] [address] Performed By: #### 2 4323-8, 3, 83903-3 ####[facility] LABCLIA [id number] [address] [address] [place] Sodium [Moles/Vol] 139 mmol/L Normal 136-144 [facility] Comment on above: Order Comment: Speci men Type: BLOOD SPECIMENOrdering Facility: [facility] Address: [address] [place] [address] Performed By: #### 2 4323-8, 3, 70403-9 ####[facility] LABCLIA [id number] [address] [address] [place] Urea nitrogen [Mass/Vol] 47 mg/dL High 9-24 [facility] Comment on above: Order Comment: Speci men Type: BLOOD SPECIMENOrdering Facility: [facility] Address: [address] [place] [id number] Performed By: #### 2 4323-8, 3016-3, 05796-5 ####[facility] LABCLIA [id number] [place] [address] [place] Lipid 1996 panelon 4 Cholesterol [Mass/Vol] 119 mg/dL Normal <200 [facility] Comment on above: Order Comment: Speci men Type: BLOOD SPECIMENOrdering Facility: [facility] Address: [address] [place] [address] Result Comment: <200 mg/dL, Desirable 200-239 mg/dL, Borderline high>239 mg/dL, High Performed By: #### 2 4323-8, 3016-3, 27438-7 ####[facility] LABCLIA [id number] [address] [place] Cholesterol in HDL [Mass/Vol] 40 mg/dL Normal >39 [facility] Comment on above: Order Comment: Speci men Type: BLOOD SPECIMENOrdering Facility: [facility] Address: [address] [place] [address] Result Comment: 40-5 9 mg/dL, Acceptable>59 mg/dL, High: Negative risk factor for coronary heart disease<40 mg/dL, Low: Positive risk factor for coronary heart disease Performed By: #### 2 4323-8, 3016-3, 75243-2 ####[facility] LABCLIA [id number] [address] [place] Cholesterol in LDL [Mass/Vol] 62 mg/dL Normal <100 [facility] Comment on above: Order Comment: Speci men Type: BLOOD SPECIMENOrdering Facility: [facility] Address: [address] [place] [address] Result Comment: <100 mg/dL, Optimal 100-129 mg/dL, Near optimal/above optimal 130-159 mg/dL, Borderline high 160-189 mg/dL, High>189 mg/dL, Very highSecondary prevention optimal LDL Cholesterol levels are recommended to be < 70 mg/dL Performed By: #### 2 4323-8, 3016-3, 24095-7 ####[facility] LABCLIA [id number] [place] [address] [place] Cholesterol in LDL/Cholesterol in HDL [Mass ratio] 1.55 {ratio} Normal <2.54 [facility] Comment on above: Order Comment: Speci men Type: BLOOD SPECIMENOrdering Facility: [facility] Address: [address] [place] [address] Result Comment: Refe rence:1. National Cholesterol Education Program ATP III Guideline At-A-Glance Quick Desk Reference: National Heart, Lung, and Blood [place]. National Institutes of Health. 2001: NIH Publication No. 01-3305.2. An International Atherosclerosis Society position paper: global recommendations for the management of dyslipidemia: executive summary, Atherosclerosis. 2014: 232(2):410-413. Performed By: #### 2 4323-8, 3016-3, 20298-3 ####[facility] LABCLIA [id number] [place] [address] [place] Cholesterol in VLDL [Mass/Vol] 17 mg/dL Normal <30 [facility] Comment on above: Order Comment: [place] men Type: BLOOD SPECIMENOrdering Facility: [facility] Address: [address] [place] [address] Performed By: #### 2 4323-8, 3016-3, 29059-2 ####[facility] LABCLIA [id number] [place] [address] [place] Cholesterol non HDL [Mass/Vol] 79 mg/dL Normal <130 [facility] Comment on above: Order Comment: Speci men Type: BLOOD SPECIMENOrdering Facility: [facility] Address: [address] [place] [address] Result Comment: <130 mg/dL, Optimal 130-159 mg/dL, Near optimal/above optimal 160-189 mg/dL, Borderline high 190-219 mg/dL, High>219 mg/dL, Very highSecondary prevention optimal non HDL Cholesterol levels are recommended to be <100 mg/dL Performed By: #### 2 4323-8, 3016-3, 15184-5 ####[facility] LABCLIA [id number] [place] [address] [place] Cholesterol.total/Cho lesterol in HDL [Mass ratio] 2.98 {ratio} Normal <5.10 [facility] Comment on above: Order Comment: Speci men Type: BLOOD SPECIMENOrdering Facility: [facility] Address: [address] [place] [address] Performed By: #### 2 4323-8, 3016-3, 83978-0 ####[facility] LABIA [id number] [place] [address] [place] FASTING TIME 12 hrs Normal [facility] Comment on above: Order Comment: Speci men Type: BLOOD SPECIMENOrdering Facility: [facility] Address: [address] [place] [address] Performed By: #### 2 4323-8, 3016-3, 49863-1 ####[facility] LABIA [id number] [place] [address] [place] Triglyceride [Mass/Vol] 83 mg/dL Normal <150 [facility] Comment on above: Order Comment: Speci men Type: BLOOD SPECIMENOrdering Facility: [facility] Address: [address] [place] [address] Result Comment: <150 mg/dL, Normal 150-199 mg/dL, Borderline high 200-499 mg/dL, High>499 mg/dL, Very high Performed By: #### 2 4323-8, 3016-3, 58445-9 ####[facility] LABCLIA [id number] [place] [address] [place] TSH SerPl-aCncon 08-04-2024 TSH Qn 7.280 m[IU]/L High 0.270-4.200 [facility] Comment on above: Order Comment: Speci men Type: BLOOD SPECIMENOrdering Facility: [facility] Address: [address] [place] [address] Performed By: #### 2 4323-8, 3016-3, 36748-0 ####[facility] LABCLIA [id number] [address] [place] [address] [place] CNPNon 08-01-2024 CNPN Normal [facility] Surgery Visit Reporton 07-26 Surgery Visit Report Normal [facility] CNPTOUTREACHon 07-24-2024 CNPTOUTREACH Normal [facility] CNPTOUTREACHon 07-22-2024 CNPTOUTREACH Normal [facility] CNOVon 07-17-2024 CNOV Normal [facility] 12 Lead EKGon 07-11-2024 12 Lead EKG Normal [facility] Abdomen/Pelvis W IV Cont ONL Yon 07-11-2024 Abdomen/Pelvis W IV Cont ONLY Normal [facility] Basic Metabolic Profile (BMP )on 07-11-2024 BUN/CRE 25.2 RATIO High - [facility] Comment on above: Performed By: #### L 100.0100, L500.2500 ####[facility] [address] [facility] [place], [address] CA,Total 9.6 mg/dL Normal 8.5-10.1 [facility] Comment on above: Performed By: #### L 100.0100, L500.2500 ####[facility] [address] [place], [address] Chloride [Moles/Vol] 104 mmol/L Normal 98-107 [facility] Comment on above: Performed By: #### L 100.0100, L500.2500 ####[facility] [address] [place], [address] CO2 [Moles/Vol] 30.0 mmol/L Normal 21.0-32.0 [facility] Comment on above: Performed By: #### L 100.0100, L500.2500 ####[facility] [address] [place], [address] Creatinine [Mass/Vol] 1.63 mg/dL High 0.70-1.30 [facility] Comment on above: Result Comment: The validity of the calculated GFR GFRAA in patients over70 years has not been determined. Clinical correlation isessential. Performed By: #### L 100.0100, L500.2500 ####[facility] [address] [place], [address] ECRCL 32.64 ml/min Normal [facility] Comment on above: Performed By: #### L 100.0100, L500.2500 ####[facility] [address] [place], [address] EST GFR - AA 52 mL/min Low >60 [facility] Comment on above: Result Comment: Afri can Bangl[place]hi GFR Calc Performed By: #### L 100.0100, L500.2500 ####[facility] [address] [place], [address] GAP 4 Low 5-15 [facility] Comment on above: Performed By: #### L 100.0100, L500.2500 ####[facility] [address] [place], [address] GFR/1.73 sq M.predicted among non-blacks MDRD (S/P/Bld) [Vol rate/Area] 43 mL/min/{1.73_m2} Low >60 [facility] Comment on above: Result Comment: Non- GFR Calc Performed By: #### L 100.0100, L500.2500 ####[facility] [address] [place], [address] Glucose [Mass/Vol] 118 mg/dL High 74-106 [facility] Comment on above: Result Comment: Fast ing Glucose result from 100 to 125 mg/dLsuggests IMPAIRED HOMEOSTASIS per A.D.A. criteria. Performed By: #### L 100.0100, L500.2500 ####[facility] [address] [place], [address] Potassium [Moles/Vol] 4.1 mmol/L Normal 3.5-5.1 [facility] Comment on above: Performed By: #### L 100.0100, L500.2500 ####[facility] [address] [place], [address] Sodium [Moles/Vol] 138 mmol/L Normal 136-145 [facility] Comment on above: Performed By: #### L 100.0100, L500.2500 ####[facility] [address] [place], [address] Urea nitrogen [Mass/Vol] 41 mg/dL High 7-18 [facility] Comment on above: Performed By: #### L 100.0100, L500.2500 ####[facility] [address] [place], [address] CBC W/Diff, Automatedon 10-2 -2023 Absolute Lymph 0.90 X10 3/uL Normal 0.83-4.51 [facility] Comment on above: Performed By: #### L 100.0100, L500.2500 ####[facility] [address] [place] [place], [address] Absolute Neut 4.8 X10 3/uL Normal 2.0-7.7 [facility] Comment on above: Performed By: #### L 100.0100, L500.2500 ####[facility] [address] [place], [address] Basophils/100 WBC (Bld) 0.5 % Normal 0-1 [facility] Comment on above: Performed By: #### L 100.0100, L500.2500 ####[facility] [address] [place], [address] Eosinophils/100 WBC (Bld) 1.7 % Normal 0-5 [facility] Comment on above: Performed By: #### L 100.0100, L500.2500 ####[facility] [address] [place], [address] Erythrocyte distribution width (RBC) [Ratio] 15.0 % High 11.6-14.6 [facility] Comment on above: Performed By: #### L 100.0100, L500.2500 ####[facility] [address] [place], [address] Hematocrit (Bld) [Volume fraction] 36.3 % Low 40-54 [facility] Comment on above: Performed By: #### L 100.0100, L500.2500 ####[facility] [address] [place], [address] Hemoglobin (Bld) [Mass/Vol] 11.8 g/dL Low 13.0-16.5 [facility] Comment on above: Performed By: #### L 100.0100, L500.2500 ####[facility] [address] [place], [address] IG% 0.500 Normal 0.0-0.9 [facility] Comment on above: Result Comment: IG% - Immature Granulocytes (promyelocytes, myelocytes andmetamyelocytes) > 1% indicates that a LEFT SHIFT is Present. Performed By: #### L 100.0100, L500.2500 ####[facility] [address] [place], [address] Lymphocytes/100 WBC (Bld) 13.9 % Low 19-41 [facility] Comment on above: Performed By: #### L 100.0100, L500.2500 ####[facility] [address] [place], [address] MCH (RBC) [Entitic mass] 29.9 pg Normal 27.0-32.0 [facility] Comment on above: Performed By: #### L 100.0100, L500.2500 ####[facility] [address] [place], [address] MCHC (RBC) [Mass/Vol] 32.5 g/dL Normal 32-36 [facility] Comment on above: Performed By: #### L 100.0100, L500.2500 ####[facility] [address] [place], [address] MCV (RBC) [Entitic vol] 91.9 fL Normal 80-94 [facility] Comment on above: Performed By: #### L 100.0100, L500.2500 ####[facility] [address] [place], [address] Monocytes/100 WBC (Bld) 9.3 % Normal 0-10 [facility] Comment on above: Performed By: #### L 100.0100, L500.2500 ####[facility] [address] [place], [address] Neutrophils/100 WBC (Bld) 74.1 % High 47-70 [facility] Comment on above: Performed By: #### L 100.0100, L500.2500 ####[facility] [address] [place], [address] Nucleated RBC (Bld) [#/Vol] 0 10*3/uL Normal 0-5 [facility] Comment on above: Performed By: #### L 100.0100, L500.2500 ####[facility] [address] [place], [address] Platelet mean volume (Bld) [Entitic vol] 10.7 fL Normal 6.2-12.0 [facility] Comment on above: Performed By: #### L 100.0100, L500.2500 ####[facility] [address] [place], [address] Platelets (Bld) [#/Vol] 107 10*3/uL Low 150-450 [facility] Comment on above: Performed By: #### L 100.0100, L500.2500 ####[facility] [address] [place], [address] RBC (Bld) [#/Vol] 3.95 10*6/uL Low 4.6-6.2 [facility] Comment on above: Performed By: #### L 100.0100, L500.2500 ####[facility] [address] [place], [address] RDW SD 51.2 fl High 35.1-43.9 [facility] Comment on above: Performed By: #### L 100.0100, L500.2500 ####[facility] [address] [place], [address] WBC (Bld) [#/Vol] 6.5 10*3/uL Normal 4.4-11.0 [facility] Comment on above: Performed By: #### L 100.0100, L500.2500 ####[facility] [address] [place], [address] CNOVon 07-11-2024 CNOV Normal [facility] Chest PA and Lateralon 07-11 Chest PA and Lateral Normal [facility] Emergency Department Summary on 07-11-2024 Emergency Department Summary Normal [facility] MR/BMS.BVSon 07-07-2024 MR/BMS.BVS Normal [facility] CNPTOUTREACHon 06-22-2024 CNPTOUTREACH Normal [facility] No Panel Informationon 02-08 Radiology Study observation (narrative) [facility] XR Shoulder - left 3 Viewson 02-09-2024 IMPRESSION: Degenerative changes as described. English Lecturer: NATALY Transcribe Date/Time: Feb 09 2024 4:46P Dictated by : JACKELIN KHAN MD This examination was interpreted and the report reviewed and electronically signed by: JACKELIN KHAN MD on Feb 09 2024 4:47PM [facility] DIVISION OF RADIOLOGY * * *Final [...] exposure partially visualized. DIVISION OF RADIOLOGY Provider, [facility] - 02/09/2024 * * *Final Report* * [...] visualized. IMPRESSION IMPRESSION: Degenerative changes as described. English Lecturer: [facility] Transcribe Date/Time: Feb 09 2024 4:46P Dictated by : JACKELIN KHAN MD This examination was interpreted and the report reviewed and electronically signed by: JACKELIN KHAN MD on Feb 09 2024 4:47PM EST [facility] XR Shoulder - right 3 Viewso 02-09-2024 IMPRESSION: Degenerative changes as described. English Lecturer: [facility] Transcribe Date/Time: Feb 09 2024 4:47P Dictated by : JACKELIN KHAN MD This examination was interpreted and the report reviewed and electronically signed by: JACKELIN KHAN MD on Feb 09 2024 4:48PM [facility] DIVISION OF RADIOLOGY * * *Final [...] exposure. DIVISION OF RADIOLOGY Provider, Yamila Inocente Santacruz - 02/09/2024 * * *Final Report* * [...] exposure. IMPRESSION IMPRESSION: Degenerative changes as described. English Lecturer: [facility] Transcribe Date/Time: Feb 09 2024 4:47P Dictated by : JACKELIN KHAN MD This examination was interpreted and the report reviewed and electronically signed by: JACKELIN KHAN MD on Feb 09 2024 4:48PM EST [facility] XR Shoulder - right 3 ViewsO rdered By: [facility] Provider on 02-09-2024 [facility] No Panel InformationOrdered By: Jovanny Rodriguez on 08-03-2023 Endomysial IgA Antibody Negative Negative [facility] Serum IgA measurement (units /volume)Ordered By: Jovanny Rodriguez on 08-03-2023 IgA Qn (S) 362 mg/dL 61-437 [facility] Comment on above: [facility] [place], [place] [id number] Director: Jovanny Walden PhD, Phone: [phone] Serum or plasma C reactive p rotein measurement (mass/volume)Ordered By: Jovanny Rodriguez on 08-03-2023 CRP [Mass/Vol] mg/L 0.0-3.0 [facility] Comment on above: C-Reactive Protein ( CRP) provides useful information for thediagnosis, therapy and monitoring of inflammatory processesand associated diseases. For the evaluation of Relative Riskfor Cardiovascular Disease, a High Sensitivity CRP (HSCRP)should be ordered. Serum tissue transglutaminas e IgA antibody assay (units/volume)Ordered By: Jovanny Rodriguez on 08-03-2023 tTG IgA Qn (S) <2 U/mL 0-3 [facility] Comment on above: Negative 0 - 3 Weak Positive 4 - 10 Positive >10 Tissue Transglutaminase (tTG) has been identified as the endomysial antigen. Studies have demonstr- ated that endomysial IgA antibodies have over 99% specificity for gluten sensitive enteropathy. Basophil percentageOrdered B y: Benita Reece on 05-26-2023 Creatinine [Mass/Vol] 1.1 mg/dL 0.70-1.30 [facility] No Panel InformationOrdered By: Benita Reece on 05-26-2023 Bedside Estimated GFR (eGFR) > 60.0000 mL/min >60 [facility] Basophil percentageOrdered B y: Omid Perez on 04-19-2023 Chloride [Moles/Vol] 104 mmol/L 98-107 [facility] Glucose [Mass/Vol] 102 mg/dL 74-106 [facility] Comment on above: Fasting Glucose resu lt from 100 to 125 mg/dL suggests IMPAIRED HOMEOSTASIS per A.D.A. criteria. Potassium [Moles/Vol] 3.7 mmol/L 3.5-5.1 [facility] Sodium [Moles/Vol] 139 mmol/L 136-145 [facility] Laboratory - Chemistry and C hemistry - challengeOrdered By: Omid Perez on 04-19-2023 CO2 [Moles/Vol] 33.0 mmol/L 21.0-32.0 [facility] Urea nitrogen/Creatinine [Mass ratio] 18.7 mg/mg 10-20 [facility] No Panel InformationOrdered By: Omid Perez on 04-19-2023 Estimated GFR (MDRD) Amer 57 mL/min >60 [facility] Comment on above: GFR Calc Estimated GFR (MDRD) Non-Af Amer 48 mL/min >60 [facility] Comment on above: Non- GFR Calc Serum or plasma calcium jossie urement (mass/volume)Ordered By: Omid Perez on 04-19-2023 Calcium [Mass/Vol] 8.9 mg/dL 8.5-10.1 [facility] Serum or plasma creatinine m easurement (mass/volume)Ordered By: Omid Perez on 04-19-2023 Creatinine [Mass/Vol] 1.50 mg/dL 0.70-1.30 [facility] Comment on above: The validity of the calculated GFR & GFRAA in patients over 70 years has not been determined. Clinical correlation is essential. Serum or plasma urea nitroge n measurement (mass/volume)Ordered By: Omid Perez on 04-19-2023 Urea nitrogen [Mass/Vol] 28 mg/dL 7-18 [facility] Thin prep Papanicolaou smear with manual screeningOrdered By: Omid Perez on 04-19-2023 Thin prep Papanicolaou smear with manual screening 2 5-15 [facility] Absolute lymphocyte countOrd ered By: Omid Perez on 04-08-2023 Lymphocytes Auto (Unsp spec) [#/Vol] 1.37 10*3/uL 0.83-4.51 [facility] Basophil percentageOrdered B y: Omid Perez on 04-08-2023 Basophils/100 WBC (Bld) 0.3 % 0-1 [facility] Chloride [Moles/Vol] 108 mmol/L 98-107 [facility] Eosinophils/100 WBC (Bld) 1.6 % 0-5 [facility] Glucose [Mass/Vol] 96 mg/dL 74-106 [facility] Neutrophils (Bld) [#/Vol] 6.3 10*3/uL 2.0-7.7 [facility] Neutrophils/100 WBC (Bld) 71.5 % 47-70 [facility] Potassium [Moles/Vol] 3.6 mmol/L 3.5-5.1 [facility] Sodium [Moles/Vol] 142 mmol/L 136-145 [facility] WBC (Bld) [#/Vol] 8.8 10*3/uL 4.4-11.0 [facility] Blood erythrocytes count (nu mber/volume)Ordered By: Omid Perez on 04-08-2023 RBC (Bld) [#/Vol] 3.95 10*6/uL 4.6-6.2 [facility] Blood hemoglobin measurement (mass/volume)Ordered By: Omid Perez on 04-08-2023 Hemoglobin (Bld) [Mass/Vol] 11.8 g/dL 13.0-16.5 [facility] Blood lymphocytes/100 leukoc ytesOrdered By: Omid Perez on 04-08-2023 Lymphocytes/100 WBC (Bld) 15.5 % 19-41 [facility] Blood monocytes/100 leukocyt esOrdered By: Omid Perez on 04-08-2023 Monocytes/100 WBC (Bld) 9.7 % 0-10 [facility] Blood platelet mean volumeOr dered By: Omid Perez on 04-08-2023 Platelet mean volume (Bld) [Entitic vol] 10.5 fL 6.2-12.0 [facility] Determination of erythrocyte mean corpuscular volume (MCV)Ordered By: Omid Perez on 04-08-2023 MCV (RBC) [Entitic vol] 92.2 fL 80-94 [facility] Hematocrit Auto (Bld) [Volum e fraction]Ordered By: Omid Perez on 04-08-2023 Hematocrit (Bld) [Volume fraction] 36.4 % 40-54 [facility] Laboratory - Chemistry and C hemistry - challengeOrdered By: Omid Perez on 04-08-2023 CO2 [Moles/Vol] 28.0 mmol/L 21.0-32.0 [facility] Urea nitrogen/Creatinine [Mass ratio] 18.0 mg/mg 10-20 [facility] Laboratory - Hematology and Cell countsOrdered By: Omid Perez on 04-08-2023 Erythrocyte distribution width (RBC) [Entitic vol] 51.8 fL 35.1-43.9 [facility] Erythrocyte distribution width (RBC) [Ratio] 15.3 % 11.6-14.6 [facility] Immature granulocytes/100 WBC (Bld) 1.400 % 0.0-0.9 [facility] Comment on above: IG% - Immature Granu locytes (promyelocytes, myelocytes and metamyelocytes) > 1% indicates that a LEFT SHIFT is Present. MCH (RBC) [Entitic mass] 29.9 pg 27.0-32.0 [facility] Nucleated RBC/100 WBC (Bld) [Ratio] 0 % 0-5 [facility] MCHC Auto (RBC) [Mass/Vol]Or dered By: Omid Perez on 04-08-2023 MCHC (RBC) [Mass/Vol] 32.4 g/dL 32-36 [facility] No Panel InformationOrdered By: Omid Perez on 04-08-2023 Estimated Creatinine Clearance Calc 48.78 ml/min [facility] Estimated GFR (MDRD) Amer 81 mL/min >60 [facility] Comment on above: GFR Calc Estimated GFR (MDRD) Non-Af Amer 67 mL/min >60 [facility] Comment on above: Non- GFR Calc Platelets bldOrdered By: Karthikeyan Perez on 04-08-2023 Platelets (Bld) [#/Vol] 107 10*3/uL 150-450 [facility] Serum or plasma calcium jossie urement (mass/volume)Ordered By: Omid Perez on 04-08-2023 Calcium [Mass/Vol] 8.2 mg/dL 8.5-10.1 [facility] Serum or plasma creatinine m easurement (mass/volume)Ordered By: Omid Perez on 04-08-2023 Creatinine [Mass/Vol] 1.11 mg/dL 0.70-1.30 [facility] Comment on above: The validity of the calculated GFR & GFRAA in patients over 70 years has not been determined. Clinical correlation is essential. Serum or plasma urea nitroge n measurement (mass/volume)Ordered By: Omid Perez on 04-08-2023 Urea nitrogen [Mass/Vol] 20 mg/dL 7-18 [facility] Thin prep Papanicolaou smear with manual screeningOrdered By: Omid Perez on 04-08-2023 Thin prep Papanicolaou smear with manual screening 6 5-15 [facility] No Panel InformationOrdered By: Omid Perez on 04-07-2023 Activated Clotting Time 143 sec 74-137 [facility] INR in Blood by Coagulation assayOrdered By: Dieter Christianson on 04-01-2023 INR Coag (Bld) [Relative time] 1.1 {INR} [facility] Laboratory - CoagulationOrde red By: Dieter Christianson on 04-01-2023 aPTT Coag (Bld) [Time] 43.0 s 24.1-36.2 [facility] PT Coag (PPP) [Time] 14.3 s 11.7-14.9 [facility] Basophil percentageOrdered B y: Dieter Christianson on 03-29-2023 Basophil percentage 2.4 mg/dL 2.5-4.9 [facility] Bilirubin [Mass/Vol] 0.60 mg/dL 0.20-1.00 [facility] Comment on above: For patients on eltr ombopag therapy, use of Dimension [place] TBIL is not recommended. Protein [Mass/Vol] 6.8 g/dL 6.4-8.2 [facility] Direct bilirubinOrdered By: Dieter Christianson on 03-29-2023 Bilirubin.direct [Mass/Vol] 0.17 mg/dL 0.00-0.30 [facility] Laboratory - Chemistry and C hemistry - challengeOrdered By: Dieter Christianson on 03-29-2023 ALP [Catalytic activity/Vol] 64 U/L 45-117 [facility] ALT [Catalytic activity/Vol] 22 U/L 16-61 [facility] Globulin (S) [Mass/Vol] 3.4 g/dL 2.2-4.2 [facility] Magnesium [Mass/Vol] 2.3 mg/dL 1.6-2.6 [facility] Serum or plasma albumin jossie urement (mass/volume)Ordered By: Dieter Christianson on 03-29-2023 Albumin [Mass/Vol] 3.4 g/dL 3.2-5.0 [facility] Thin prep Papanicolaou smear with manual screeningOrdered By: Dieter Christianson on 03-29-2023 Thin prep Papanicolaou smear with manual screening 19 U/L 15-37 [facility] Basophil percentageOrdered B y: Omid Preez on 02-23-2023 Chloride [Moles/Vol] 107 mmol/L 98-107 [facility] Glucose [Mass/Vol] 92 mg/dL 74-106 [facility] Potassium [Moles/Vol] 3.6 mmol/L 3.5-5.1 [facility] Sodium [Moles/Vol] 140 mmol/L 136-145 [facility] Laboratory - Chemistry and C hemistry - challengeOrdered By: Omid Perez on 02-23-2023 CO2 [Moles/Vol] 30.0 mmol/L 21.0-32.0 [facility] Urea nitrogen/Creatinine [Mass ratio] 24.8 mg/mg 10-20 [facility] No Panel InformationOrdered By: Omid Perez on 02-23-2023 Estimated GFR (MDRD) Amer 64 mL/min >60 [facility] Comment on above: GFR Calc Estimated GFR (MDRD) Non-Af Amer 53 mL/min >60 [facility] Comment on above: Non- GFR Calc Serum or plasma calcium jossie urement (mass/volume)Ordered By: Omid Perez on 02-23-2023 Calcium [Mass/Vol] 9.2 mg/dL 8.5-10.1 [facility] Serum or plasma creatinine m easurement (mass/volume)Ordered By: Omid Perez on 02-23-2023 Creatinine [Mass/Vol] 1.37 mg/dL 0.70-1.30 [facility] Comment on above: The validity of the calculated GFR & GFRAA in patients over 70 years has not been determined. Clinical correlation is essential. Serum or plasma urea nitroge n measurement (mass/volume)Ordered By: Omid Perez on 02-23-2023 Urea nitrogen [Mass/Vol] 34 mg/dL 7-18 [facility] Thin prep Papanicolaou smear with manual screeningOrdered By: Omid Perez on 02-23-2023 Thin prep Papanicolaou smear with manual screening 3 5-15 [facility] SURGICAL PATHOLOGYOrdered By : Matt Culp on 01-18-2023 Case Report Surgical Pathology R eport Case: [id number] Authorizing Provider: Lisa Rodriguez MD Collected: 01/15/2023 11:33 AM Ordering Location: Ambulatory Surgery Received: 01/15/2023 08:54 PM Pathologist: Matt Culp MD Specimen: COLON BIOPSY, random [facility] Work Phone: FINAL DIAGNOSIS p6ugaTMlENGriBUwBCQp NVxhbn ByMDPwvYHzT4YdemevEWijZO5m GM5swOnkxVUuuAJuCKXsZfKog5 xym096cPWjt4szTTRHyqdreLq1 gNsaY24hd6A4QdqhJ18uaOGcVQ V8WOQaYZZfbZDlVYDtFJQ4THRo iJVjE6klOFSrWW3oqrbbRAjiLW ehFKKqePU7GKAqbVVuY7XcHUSx GGjaGDJfyiu0XuWcOg8byQIklU cyMFxwYXJkXHBsYWluXGZzMjAg NxKwGK1rCOFnpB1sUQCtnT2ev2 l7KAyxojJdIBMZe1tsJTsbae33 jjUkc6aecJmzUerzBFR7 [facility] Work Phone: Gross Description t5zqfOFpHOUygAROAVCb MDRcYW 9ewGitkZh8oCdvSFFnubY5zHXn LVgjs4muDEO4a7ykelAYVkncEW WiSAvhVQEwhpqsUdL4IArwRDEp summLPa4FCdeZUIrlDB2SRGbrI EmS6NzQCAwBK5malq0SQD8KXog ZMLqXsQ8FIWkYcCrVdwlAHp8GA FthiX8Nzh9NLRcMGPoiFLkr3T8 KEdabqycJBNdjJNmL112RAquv5 VjdGQgDQpccGFyZCANCntcKlxl zJpvi5QhrCGqAQbxTVGhMXTxAH misxpkMYq9AEPjNAzpnNEuJM1u wMlySakzeNkwd6AtoFUsNJjfVZ EmDHMvGRicBYWnTM7HYqMzIHJn WMS7ZFPdGnV0DZw9TTJJKbBaTj XqFfB1GentLpSeXYh1FUu3MPdS MoFxRUB5XoZ4RcAnJQY2PYjmWR BcXHQgMiBcXGYgQXJpYWwgXFxm mXIrOB1vnCfmtINluuCXTiTUQ7 pXVvJXPS9XG7bzmUYfPX2CUKOe bQLGCEQ6BV9iLSFETvbbrQYcEL AzzAyeMSmngN3zBK8PPCb3wbYj TBYxQkApWjKmFSc8ZECnjY5zDq 1nrEGvmN2gBTZxDN83xSTnuCkq OKUzVITtjmFePxR4KZ6qULGtUk FxtUqmm6QjPMMvH7GjR2T9eV2t BZNqXGEeXiD8DAZxQKL8HHRvHv XrdW3lPQ51YAljxLVirSXqdWX1 GVGmpZ6mEf8pwCEdxO4boR7nzX fnMJOer6TptJXzno0xEAOopuGF ClxwYXIgDQpccGFyZFxsdHJwYX VdsBk6XwEnNM6FU7Vos2WeOSem eMrlXXZyo02lcZQjJh9qoUZmTP V7TMZzYKWkkDGkNQESlDkvsXCf SLi4KUPsZYYfvEqmRBW1GV7yLC EkRCXxoMDhMMufI4lvUVNtWUKo yLWjND3DUOFcrkLJXzvLTKI5Jl L7FcSdRiFdCUZ8TddqGR8wrAOs SL6CYMPifoYpvYWydQMuPJ6ODK JhsSTMOVW3RI4fYXt7WRgpEKGb F3CcQ8KuvaCfvQUcRXOqxzZmb5 jjIPC7ABDzmQYxkVGdYoLiMkbi LRJ1AGCqZCyaNQ9ZTZWuEFX9WE trwY84zWQpCQ5ZYDKcJHyvKQPp BAWcanO2CAUddPGuMQW1IC0pwV shiSKspluvqkQ5KC5QwI== [facility] Work Phone: Performing Lab v3cvwBQmTVHxhYEqCaVy MDAwXG Zjr3diYQAedSAbSeTyUjLcYgAu NyqfxRZfUDRyKzDzm7foi673mQ Wkm6tbYRQjLyH8eXXaERMcdEYs T828GNAgFFutd9xes1VrYVIbbH Rwn7G5WZETzumtuSn3jGweV08t l1R5IdfgQ6pzMMNqRAEyL5DcAD 5cTFTpVzj2IBB4CIC8VGNeFZVc Y9TwKO2gWJKirMBsJVt6b9plfD opMDQiIPN4y7eqWJniqyEjJK0x nz0ugXx7a6xrlqLoLWSkRLUxeM HVDKRwR9UkmDwkFh4qiOq5fNwt VbbkYXO6Lhv8FJ4ovo11mms8jL zvDAMebksiJpE0UXkzTIXyebeb CUj9HAswYVTvsZJ1EDLrsPNoO9 TqTPixKP8qeki6AEU0AOefNAQw VtI0OCHlgRWxEYCtiKptSBwvo1 48TIK7EjUfCT5lB9Pen1C2fD3k sYXnRAQxrHKlAwLhNGBuof2tdI TnMAfbo3PuSSI7woS6nGTuaUWj PEIhND45Kbldn4AyZbolr3GpK3 0vaBN7UBgue1poWW8mOcZ3vmTw HNswo9bobM6vKfT7OYjlGN7oRV 2hDICndU1fllzcRKMfDfUoiptn ZXDuwUartwYaBq7fwJteJLP3ZJ ubT0ftoZ3xVhR3HEcnE3jvqY7s VWy1EGjbtVW6NKInaU1iAI2mqn thy7iuRRopXKqbGCHuyyY2tcZp ULGwvQUbS2TyeM5oEZZpWN7gwl fcz8hgDJO0PPyqYXNpNFI2IuKh VOTkm2Bbtwq4ApHhe6MffHXyAN wcV37te888SHPdpoHhZ4iboBUr wwmbuRYdvfgiPKjxfoV4ONNzFU BsYWluXGYxXGZzMjJcbGFuZzEw MzNcaGljaFxmMVxkYmNoXGYxXG jdL9ojTtGlJuBtAcUQvUEvtb0n xOtnRBbzxXHxuHPbpDP2yF7hDE XajqDjef2mEYJdmCGFgPL4NGjq gqJbJ5qwklsqGAP7MEPzEBV6H3 xpZCBBdmUsIENsZXZlbGFuZCBP JXM4VUR4BQArMJVZJPFkMOJ3UB R3EMElNOCsdTJwPGAqeqhtODQb XHBsYWluXGYwXGZzMjRccGxhaW 9fTcPsFpDjLwsaXJ0yXWVaU3vr uGTaEZMxKVSzY1weSpHxnO7hfC xmMVxjZjJcZnMyMlxsdHJjaCBM ZQTjknO2k9G8AGlclTDumhuqCU cyfiXzZAmrcfuaZRDlAFymO6aw AaNoQWBciNeaFIllq8VcRBLyCV GwBkXkCKdfHPQ3c7W2TWnlpFZn swBMNqFSEV2gcJMnusglXA9TRp xwYXJ9 [facility] Work Phone: [facility] Work Phone: Flexible sigmoidoscopy study on 01-15-2023 [facility] Patient Name: Leana Camejo Procedure Date: 01/15/2023 11:19 AM Date of : 1940 Admit Type: Outpatient Age: 83 Room: [place] [address] Gender: Male Note Status: Finalized Attending MD: [...] by the physician, the nurse and the knotter in the pre-procedure area in the endoscopy [...] entire examined (more content not included)... [employer] [facility] Radiology Study observation (narrative) [facility] CULTURE ANAEROBEon 9 CULTURE ANAEROBE CULTURE ANAEROBE --> Status: F No growth of anaerobes at 5 days. Normal [facility] Comment on above: Performed By: #### C XFLD, C/CAITLYN #### [facility] [address], [place] Basic Metabolic Panelon 10-3 0-2019 Anion gap [Moles/Vol] 7 Normal [facility] Comment on above: Performed By: #### B MP3 #### [facility] [address] [place], [place] Calcium [Mass/Vol] 9.0 mg/dL Normal 8.4-10.4 [facility] Comment on above: Performed By: #### B MP3 #### [facility] [address], [place] CO2 [Moles/Vol] 25 mmol/L Normal 22-30 [facility] Comment on above: Performed By: #### B MP3 #### [facility] [address] [place], [place] Glucose [Mass/Vol] 107 mg/dL High 70-100 [facility] Comment on above: Performed By: #### B MP3 #### [facility] [address], [place] Urea nitrogen [Mass/Vol] 25 mg/dL High 7-20 [facility] Comment on above: Performed By: #### B MP3 #### [facility] [address], [place] Creatinine [Mass/Vol] 1.17 mg/dL Normal 0.52-1.25 [facility] Comment on above: Performed By: #### B MP3 #### [place] [address] [address] [place], [place] GFR/1.73 sq M predicted among blacks MDRD (S/P/Bld) [Vol rate/Area] mL/min/{1.73_m2} Normal >60 [facility] Comment on above: Performed By: #### B MP3 #### [facility] [address], [place] GFR/1.73 sq M predicted among non-blacks MDRD (S/P/Bld) [Vol rate/Area] mL/min/{1.73_m2} Normal >60 [facility] Comment on above: Result Comment: Sour ce- MDRD equation with creatinine calibration to IDMS(NKDEP) eGFR not recommended for drug dose adjustment Performed By: #### B MP3 #### [facility] [address], [place] Potassium [Moles/Vol] 3.8 mmol/L Normal 3.5-5.1 [facility] Comment on above: Performed By: #### B MP3 #### [facility] [address], [place] Sodium [Moles/Vol] 138 mmol/L Normal 135-145 [facility] Comment on above: Performed By: #### B MP3 #### [place] [address] [address] [place], [place] Chloride [Moles/Vol] 106 mmol/L Normal 98-107 [facility] Comment on above: Performed By: #### B MP3 #### [facility] [address] [place] [address] Anion gap [Moles/Vol] 7 mmol/L [place], [place] Calcium [Mass/Vol] 9.0 mg/dL 8.4 - 10. 4 mg/dL [place], [place] Chloride [Moles/Vol] 106 mmol/L 98 - 10 7 mmol/L [place] CO2 [Moles/Vol] 25 mmol/L 22 - 30 mmol/L [place] Creatinine [Mass/Vol] 1.17 mg/dL 0.52 - 1.25 mg/dL [place] EGFR IF NonAfrican Bangladeshi >60.0 >60 mL/min [place] Comment on above: Source- MDRD equatio n with creatinine calibration to IDMS(NKDEP) eGFR not recommended for drug dose adjustment GFR/1.73 sq M predicted among blacks MDRD (S/P/Bld) [Vol rate/Area] mL/min/{1.73_m2} >60 mL/min [place], [place] Glucose [Mass/Vol] 107 mg/dL High 70 - 100 mg/dL [place] Interpretation and review of laboratory results Abnormal [place] Potassium [Moles/Vol] 3.8 mmol/L 3.5 - 5.1 mmol/L [place] Sodium [Moles/Vol] 138 mmol/L 135 - 145 mmol/L [place] Urea nitrogen [Mass/Vol] 25 mg/dL High 7 - 20 mg/dL [place], [place] Test Performed by [facility], [address] [place] [id number] [place], [place] CT Aspiration Fine Needleon 07-19-2019 CT Aspiration Fine Needle Patient Name: LEANA CAMEJO CT Exam Date/Time 07/19/2019 09:16:[address] Aspiration Ordering Physician MD PEYTON, YARIEL Durán Accession Number [id number] CPT4 Codes 38579 (), 44370 () Reason For Exam ileopsoas abscess Report [...] Transcribed Date and Time: 07/19/2019 9:25 Normal [facility] CT GUIDED NEEDLE ASPIRATION OR INJECTIONon 07-19-2019 Patient Name: LEANA CAMEJO ---CT--- Exam Date/Time 07/19/2019 09:16:[address] Aspiration Ordering Physician MD PEYTON, YARIEL Durán Accession Number [id number] CPT4 Codes 93886 (), 07706 () Reason For Exam ileopsoas abscess Report [...] WILLIAM Transcribed Date and Time: 07/19/2019 9:25 [place], [place], [facility] In[facility] Radiology Results From [facility] - 07/19/2019 9:31 AM EDT Patient Name: LEANA CAMEJO ---CT--- Exam Date/Time 07/19/2019 09:16:[address] Aspiration Ordering Physician MD BLAS TYLER M Accession Number [id number] CPT4 Codes 92258 (), 21558 () Reason For Exam ileopsoas abscess Report [...] WILLIAM Transcribed Date and Time: 07/19/2019 9:25 [place] CULTURE AND STAIN - FLUIDon 07-19-2019 CULTURE AND STAIN - FLUID CULTURE & STAIN - FLUID --> Status: F No growth at 3 days. STAIN GRAM --> Status: F Many polymorphonuclear cells/lpf. No organisms seen. No organisms seen. Normal [facility] Comment on above: Performed By: #### C Akila HOOD/CAITLYN #### [facility] [address] [place] [id number] .GFRon 06-16-2019 GFR 69 ml/min/1.73sqm Normal [facility] ([place]) Comment on above: Result Comment: GFR Population [...] Performed By: #### C RE, GFR #### [address] [address] GFR Non- 57 ml/min/1.73sqm Normal [facility] ([place]) Comment on above: Result Comment: GFR Population [...] Performed By: #### C RE, GFR #### [address] [address] CREon 06-16-2019 Creatinine [Mass/Vol] 1.23 mg/dL Normal 0.70-1.30 [facility] ([place]) Comment on above: Performed By: #### C RE, GFR #### [place] [id number] CNOVon 01-14-2018 CNOV Office Visit (AGCARDWST) LEANA CAMEJO ([id number]) 1940 MDate Time Provider Department01/14/18 10:30 AM [...] - N/ABeta adrienne for ASHD with prior NH or prior LVEFANDlt;40 (NQF 0070) - N/ABeta [...] tab Take 1 tablet by mouth once daily.ht-9-vdm-epa-D3-B12- FA-B-6-phy (ANIMI-3 WITH VITAMIN D) 500-1,103-030jw-wmjp-mcg cap Take 1,000 Units by mouth twice daily.Fish,Saf,Flx,Brg Oils-O3,6,9#2 [phone] mg cap Take 6 capsules by mouthonce daily.Flaxseed Oil 1,000 mg ORAL Cap Take by mouth.gabapentin (NEURONTIN) 300 mg capsule Take 1 capsule by mouth twice daily.Ipratropium Baisden (ATROVENT) 0.03 % nasal spray Use 2 [...] function is stableElectronically Signed:Leigha Duckworth 2017 10:43 [facility]: Diogenes Preciado MD 01/14/2018 10:44 AM SignedDecrease amlodipine to 5 mg daily.Start carvedilol 6.25 mg twice a dayCall next week with list of your vital signsIf increased HR continues, we will do a heart monitorReferring Provider: SELF [[id number]]Allergies As of Date: 01/14/2018 Noted Allergy ReactionCLONIDINE 07/21/2005CRESTOR (ROSUVASTATIN CALCIUM) 07/21/2005LIPITOR (ATORVASTATIN CALCIUM) 07/21/2005LISINOPRIL 02/10/2017 2 - RashSTATINS (XRWVVKO-ZRA-ZDI REDUCTAS*07/15/2006Date Reviewed: 09/09/2017Reviewed by: Benita Muse) Tanisha - Fully AssessedReason for Visit: Established Patient [...] Take 1 tablet by mouth once d* CNKKB-9-IAS-WKG-Q6-R53-FA- B6-* Take 1,000 Units by mouth twi* [...] Status:Closed by MOODY MONTES MD on 01/14/18 [facility] PROGRESSon 01-14-2018 PROGRESS HNO ID: [id number] thor: Moody Yuan: (none)Author Type: PhysicianType: Progress NotesFiled: 01/14/2018 5:45 PMNote Text:PERTINENT CARDIAC HISTORYHTNHL - statin intolerantCHF - diastolicVPDsCRFRSV infectionAllergy to lisinopril - rashADHERENCE TO GUIDELINESACE-I or ARB for HF with prior LVEF<40 (NQF 0081) - N/AASA or Plavix for ASHD (NQF 0067) - N/ABeta adrienne for ASHD with prior NH or prior LVEF<40 (NQF 0070) - N/ABeta [...] plan.DIAGNOSIS FOR VISIT:HypertensionEdemaHIS TORY OF PRESENT ILLNESSSealli Caemjo returns to the office today for follow-up. [...] tab Take 1 tablet by mouth once daily.jn-8-dom-epa-D3-B12- FA-B-6-phy (ANIMI-3 WITH VITAMIN D) 500-1,214-398tj-xkrf-mcg cap Take 1,000 Units by mouth twice daily.Fish,Saf,Flx,Brg Oils-O3,6,9#2 [phone] mg cap Take 6 capsules bymouth once daily.Flaxseed Oil 1,000 mg ORAL Cap Take by mouth.gabapentin (NEURONTIN) 300 mg capsule Take 1 capsule by mouth twice daily.Ipratropium Baisden (ATROVENT) 0.03 % nasal spray Use 2 [...] function is stableElectronically Signed:Leigha Duckworth 2017 10:43 [facility]: Gavin Hope MD [facility] CNOVon 09-09-2017 CNOV Office Visit (AGCARDWST) LEANA CAMEJO ([id number]) 1940 MDate Time Provider Uapexntsrn72/21/17 8:30 AM MOODY MONTES During your visit today, [...] - N/ABeta adrienne for ASHD with prior NH or prior LVEFANDlt;40 (NQF 0070) - N/ABeta [...] with treatment plan.This note was generated using Razmir voice recognition system, and there may besome [...] tab Take 1 tablet by mouth once daily.rm-5-qym-epa-D3-B12- FA-B-6-phy (ANIMI-3 WITH VITAMIN D) 500-1,043-798zw-cqka-mcg cap Take 1,000 Units by mouth twice daily.Fish,Saf,Flx,Brg Oils-O3,6,9#2 [phone] mg cap Take 6 capsules by mouthonce daily.Flaxseed Oil 1,000 mg ORAL Cap Take by mouth.Ipratropium Baisden (ATROVENT) 0.03 % nasal spray Use 2 [...] UPPER EYELID 2012- COLONOSCOP W/ OR W/O [facility] SPEC 03/18/01 anemia- COLONOSCOP W/ OR W/O [facility] SPEC 05/13/10 repeat 10 yrs- EGD W/O [...] fraction was 60%.Electronically Signed:ARIADNA Duckworthecemborestes 2016 8:54 [facility]:Diogenes Preciado MD 09/09/2017 8:54 AM SignedLIFESTYLE [...] programs in your area.Referring Provider: GAVIN HOPE [[id number]]Allergies As of Date: 09/09/2017 Noted Allergy ReactionCLONIDINE 07/21/2005CRESTOR (ROSUVASTATIN CALCIUM) 07/21/2005LIPITOR (ATORVASTATIN CALCIUM) 07/21/2005LISINOPRIL 02/10/2017 2 - RashSTATINS (LNTLPJF-CNC-QEC REDUCTAS*07/15/2006Date Reviewed: 09/09/2017Reviewed by: Benita Garay - [...] Take 1 tablet by mouth once d* ENAVO-7-YYG-UAB-J1-M85-FA- B6-* Take 1,000 Units by mouth twi* [...] the following areas and commit to making mcfp changes. EAT A WHOLE FOOD, PLANT BASED [...] your area.Follow-up and Disposition History RecordedEncounter Number: [id number] Status:Closed by MOODY MONTES MD on 09/10/17 [facility] PROGRESSon 09-09-2017 PROGRESS HNO ID: [id number] thor: Moody Yuan: (none)Author Type: PhysicianType: Progress NotesFiled: 09/10/2017 6:07 PMNote Text:PERTINENT CARDIAC HISTORYHTNHL - statin intolerantCHF - diastolicVPDsCRFRSV infectionAllergy to lisinopril - rashADHERENCE TO GUIDELINESACE-I or ARB for HF with prior LVEF<40 (NQF 0081) - N/AASA or Plavix for ASHD (NQF 0067) - N/ABeta adrienne for ASHD with prior NH or prior LVEF<40 (NQF 0070) - N/ABeta [...] with treatment plan.This note was generated using Razmir voice recognition system, and theremay be some [...] tab Take 1 tablet by mouth once daily.la-4-syi-epa-D3-B12- FA-B-6-phy (ANIMI-3 WITH VITAMIN D) 500-1,261-337ok-ojbw-mcg cap Take 1,000 Units by mouth twice daily.Fish,Saf,Flx,Brg Oils-O3,6,9#2 [phone] mg cap Take 6 capsules bymouth once daily.Flaxseed Oil 1,000 mg ORAL Cap Take by mouth.Ipratropium Baisden (ATROVENT) 0.03 % nasal spray Use 2 [...] UPPER EYELID 2012- COLONOSCOP W/ OR W/O [facility] SPEC 03/18/01 anemia- COLONOSCOP W/ OR W/O [facility] SPEC 05/13/10 repeat 10 yrs- EGD W/O [...] showed no ischemia. Ejection fraction was 60%.Electronically Signed:Moody Montes MDDecemborestes 2016 8:54 [facility]:Gavin Hpoe MD [facility] OBSOLETEon 07-22-2017 OBSOLETE Refill (AGCARDWST) LEANA CAMEJO ([id number]) 1940 MDate Time Provider Kronkgkkfp15/2/17 MOODY MONTES During your visit today, we [...] daily. KEVIN: No Please review and advise.Frank DalyherbertJAMIofeliamelissa has been identified by name and date [...] (ATORVASTATIN CALCIUM) 07/21/2005LISINOPRIL 02/10/2017 2 - RashSTATINS (ZUYWERU-RCN-YXT REDUCTAS*07/15/2006Date Reviewed: 06/03/2017Reviewed by: Benita Garay - Fully AssessedReason for Visit: Refill Request [94]Visit Diagnosis:Chronic diastolic CHF (congestive heart failure) (HCC) [I50.32]Order(s):furosemid e (LASIX) 40 mg tabletTake 1 [...] Take 1 tablet by mouth once d* RXVHZ-8-LBG-EYB-G4-J49-FA- B6-* Take 1,000 Units by mouth twi* [...] Status:Closed by FRANK ARELLANO on 07/22/17 Normal [facility] Vital Signs Date Time Vital Sign Value Performing Clinician Facility 06-05-2025 08:28-0400 Body height 172.[address] Dallas Reed MD Work Phone: [facility] 06-05-2025 08:28-0400 Body mass index (BMI) [Ratio] 21.1 kg/m2 Dr. Dallas Reed MD Work Phone: [facility] 06-05-2025 08:28-0400 Body weight 63.[address] Dallas Reed MD Work Phone: [facility] 06-05-2025 08:28-0400 Diastolic blood pressure 63 mm[Hg] Dr. Dallas Reed MD Work Phone: 3(080)885-103496 [place] [address] 06-05-2025 08:28-0400 Heart rate 71 /min Dr. Dallas Reed MD Work Phone: 2(836)956-479296 [place] [address] 06-05-2025 08:28-0400 Respiratory rate 16 /min Dr. Dallas Reed MD Work Phone: [facility] 06-05-2025 08:28-0400 Systolic blood pressure 123 mm[Hg] Dr. Dallas Reed MD Work Phone: [facility] 05-24-2025 14:39-0400 Diastolic blood pressure 48 mm[Hg] Dallas Reed MD Work Phone: [facility] 05-24-2025 14:39-0400 Heart rate 65 /min Dallas Reed MD Work Phone: [facility] 05-24-2025 14:39-0400 Systolic blood pressure 83 mm[Hg] Dallas Reed MD Work Phone: [facility] 05-24-2025 14:26-0400 Body mass index (BMI) [Ratio] 21.32 kg/m2 Dallas Reed MD Work Phone: [facility] 05-24-2025 14:26-0400 Body weight 63.6 kg Dallas Reed MD Work Phone: [facility] 05-22-2025 17:18-0400 Body temperature 98.1 [degF] Dr. Dallas Reed MD Work Phone: 4(056)585-844496 [place] [address] 05-22-2025 17:18-0400 Diastolic blood pressure 63 mm[Hg] Dr. Dallas Reed MD Work Phone: 0(939)327-092596 [place] [address] 05-22-2025 17:18-0400 Heart rate 91 /min Dr. Dallas Reed MD Work Phone: 0(244)329-540896 [place] [address] 05-22-2025 17:18-0400 Respiratory rate 17 /min Dr. Dallas Reed MD Work Phone: 0(989)873-826196 [place] [address] 05-22-2025 17:18-0400 SaO2% (BldA) [Mass fraction] 98 % Dr. Dallas Reed MD Work Phone: 4(299)028-373696 [place] [address] 05-22-2025 17:18-0400 Systolic blood pressure 106 mm[Hg] Dr. Dallas Reed MD Work Phone: 2(492)792-822696 [place] [address] 05-22-2025 11:31-0400 Body height 172.[address] Dallas Reed MD Work Phone: 1(601)783-767196 [place] [address] 05-22-2025 11:31-0400 Body weight 61.[address] Dallas Reed MD Work Phone: 1(542)625-789496 [place] [address] 05-22-2025 06:00-0400 Body mass index (BMI) [Ratio] 20.7 kg/m2 Dr. Dallas Reed MD Work Phone: 8(006)684-633196 [place] [address] 05-21-2025 04:00-0400 Diastolic blood pressure 81 mm[Hg] Dr. Dallas Reed MD Work Phone: 2(795)037-274096 [place] [address] 05-21-2025 04:00-0400 Heart rate 82 /min Dr. Dallas Reed MD Work Phone: 5(338)469-950696 [place] [address] 05-21-2025 04:00-0400 Respiratory rate 18 /min Dr. Dallas Reed MD Work Phone: 9(662)311-703796 [place] [address] 05-21-2025 04:00-0400 SaO2% (BldA) [Mass fraction] 92 % Dr. Dallas Reed MD Work Phone: 4(445)678-488283 [place] [address] 05-21-2025 04:00-0400 Systolic blood pressure 128 mm[Hg] Dr. Dallas Reed MD Work Phone: 1(366)291-975196 [place] [address] 05-21-2025 03:38-0400 Body temperature 98 [degF] Dr. Dallas Reed MD Work Phone: 5(893)239-227796 [place] [address] 05-21-2025 01:21-0400 Body height 172.[address] Dallas Reed MD Work Phone: 0(847)742-037996 [place] [address] 05-21-2025 01:21-0400 Body mass index (BMI) [Ratio] 21.4 kg/m2 Dr. Dallas Reed MD Work Phone: 3(229)677-677096 [place] [address] 05-21-2025 01:21-0400 Body weight 63.[address] Dallas Reed MD Work Phone: 2(043)357-293796 [place] [address] 05-18-2025 09:41-0400 Body mass index (BMI) [Ratio] 21.08 kg/m2 Darya Saira [employer]EL[employer] Work Phone: [facility] 05-18-2025 09:41-0400 Body weight 62.9 kg Darya Saira [employer] DEVELOPER.[employer] Work Phone: [facility] 05-18-2025 09:41-0400 Diastolic blood pressure 70 mm[Hg] Darya Saira [employer] DEVELOPER.[employer] Work Phone: [facility] 05-18-2025 09:41-0400 Heart rate 56 /min Darya Saira [employer] DEVELOPER.[employer] Work Phone: [facility] 05-18-2025 09:41-0400 Respiratory rate 14 /min Darya RosalesSaira [employer] DEVELOPER.[employer] Work Phone: [facility] 05-18-2025 09:41-0400 SaO2% (BldA) [Mass fraction] 94 % Darya Borden [employer] DEVELOPER.[employer] Work Phone: [facility] 05-18-2025 09:41-0400 Systolic blood pressure 112 mm[Hg] Darya Borden [employer] DEVELOPER.[employer] Work Phone: [facility] 05-10-2025 08:07-0400 Body height 172.[address] Dallas Reed MD Work Phone: [facility] 05-10-2025 08:07-0400 Body mass index (BMI) [Ratio] 21.6 kg/m2 Dr. Dallas Reed MD Work Phone: 0(141)802-906903 [address] 05-10-2025 08:07-0400 Body weight 64.[address] Dallas Reed MD Work Phone: 7(696)710-825003 [address] 05-10-2025 08:07-0400 Diastolic blood pressure 55 mm[Hg] Dr. Dallas Reed MD Work Phone: 3(481)731-346483 [place] [address] 05-10-2025 08:07-0400 Heart rate 66 /min Dr. Dallas Reed MD Work Phone: 8(009)298-628903 [address] 05-10-2025 08:07-0400 Respiratory rate 18 /min Dr. Dallas Reed MD Work Phone: 7(033)298-988983 [place] [address] 05-10-2025 08:07-0400 SaO2% (BldA) [Mass fraction] 98 % Dr. Dallas Reed MD Work Phone: 9(802)418-773383 [place] [address] 05-10-2025 08:07-0400 Systolic blood pressure 95 mm[Hg] Dr. Dallas Reed MD Work Phone: [facility] 04-18-2025 16:27-0400 Body temperature 98.2 [degF] Dr. Dallas Reed MD Work Phone: 4(844)660-643983 [place] [address] 04-18-2025 16:27-0400 Body weight 65.[address] Dallas Reed MD Work Phone: [facility] 04-18-2025 16:27-0400 Diastolic blood pressure 79 mm[Hg] Dr. Dallas Reed MD Work Phone: [facility] 04-18-2025 16:27-0400 Heart rate 74 /min Dr. Dallas Reed MD Work Phone: [facility] 04-18-2025 16:27-0400 Respiratory rate 16 /min Dr. Dallas Reed MD Work Phone: [facility] 04-18-2025 16:27-0400 SaO2% (BldA) [Mass fraction] 97 % Dr. Dallas Reed MD Work Phone: [facility] 04-18-2025 16:27-0400 Systolic blood pressure 158 mm[Hg] Dr. Dallas Reed MD Work Phone: [facility] 03-16-2025 19:15-0400 Diastolic blood pressure 69 mm[Hg] Ana Bobo MD Work Phone: [employer] Comment on above: per patient SBP in 120s is normal for [facility] 03-16-2025 19:15-0400 Heart rate 71 /min Ana Bobo MD Work Phone: [facility] [facility] 03-16-2025 19:15-0400 Respiratory rate 16 /min Ana Bobo MD Work Phone: [facility] [facility] 03-16-2025 19:15-0400 SaO2% (BldA) [Mass fraction] 94 % nAa Bobo MD Work Phone: [employer] 03-16-2025 19:15-0400 Systolic blood pressure 124 mm[Hg] Ana Bobo MD Work Phone: [employer] Comment on above: per patient SBP in 120s is normal for [facility] 03-16-2025 17:07-0400 Body temperature 97.3 [degF] Ana Bobo MD Work Phone: [employer] 03-16-2025 10:04-0400 Body height 172.7 cm Ana Bobo MD Work Phone: [facility] 03-16-2025 10:04-0400 Body mass index (BMI) [Ratio] 22.66 kg/m2 Ana Bobo MD Work Phone: [facility] 03-16-2025 10:04-0400 Body weight 67.59 kg Ana Bobo MD Work Phone: [facility] 03-12-2025 08:39-0400 Body mass index (BMI) [Ratio] 21.69 kg/m2 Darya Saira [employer] DEVELOPER.[employer] Work Phone: [facility] 03-12-2025 08:39-0400 Body weight 64.7 kg Darya Saira [employer] DEVELOPER.[employer] Work Phone: [facility] 03-12-2025 08:39-0400 Diastolic blood pressure 68 mm[Hg] Darya Saira [employer] DEVELOPER.[employer] Work Phone: [facility] 03-12-2025 08:39-0400 Heart rate 70 /min Darya Saira [employer] DEVELOPER.[employer] Work Phone: [facility] 03-12-2025 08:39-0400 Respiratory rate 14 /min Darya Saira [employer] DEVELOPER.[employer] Work Phone: [facility] 03-12-2025 08:39-0400 SaO2% (BldA) [Mass fraction] 98 % Darya Saira [employer] DEVELOPER.[employer] Work Phone: [facility] 03-12-2025 08:39-0400 Systolic blood pressure 112 mm[Hg] Darya Saira [employer] DEVELOPER.[employer] Work Phone: [facility] 02-27-2025 14:48-0400 Body temperature 97.5 [degF] Dr. Dallas Reed MD Work Phone: [facility] 02-27-2025 14:48-0400 Body weight 64.[address] Dallas Reed MD Work Phone: [facility] 02-27-2025 14:48-0400 Diastolic blood pressure 72 mm[Hg] Dr. Dallas Reed MD Work Phone: 4(300)511-396996 [place] [address] 02-27-2025 14:48-0400 Heart rate 60 /min Dr. Dallas Reed MD Work Phone: 9(342)306-310296 [place] [address] 02-27-2025 14:48-0400 Respiratory rate 16 /min Dr. Dallas Reed MD Work Phone: 3(875)170-723896 [place] [address] 02-27-2025 14:48-0400 SaO2% (BldA) [Mass fraction] 100 % Dr. Dallas Reed MD Work Phone: 6(006)837-135496 [place] [address] 02-27-2025 14:48-0400 Systolic blood pressure 123 mm[Hg] Dr. Dallas Reed MD Work Phone: 8(104)856-967896 [place] [address] 02-14-2025 20:53-0400 Body temperature 97.7 [degF] Dr. Dallas Reed MD Work Phone: 5(658)461-856396 [place] [address] 02-14-2025 20:53-0400 Diastolic blood pressure 76 mm[Hg] Dr. Dallas Reed MD Work Phone: 2(830)623-097996 [place] [address] 02-14-2025 20:53-0400 Heart rate 73 /min Dr. Dallas Reed MD Work Phone: 6(570)424-437696 [place] [address] 02-14-2025 20:53-0400 Respiratory rate 17 /min Dr. Dallas Reed MD Work Phone: 8(177)674-112096 [place] [address] 02-14-2025 20:53-0400 SaO2% (BldA) [Mass fraction] 94 % Dr. Dallas Reed MD Work Phone: 7(457)177-632896 [place] [address] 02-14-2025 20:53-0400 Systolic blood pressure 143 mm[Hg] Dr. Dallas Reed MD Work Phone: 9(300)506-775296 [place] [address] 02-14-2025 09:53-0400 Body height 172.[address] Dallas Reed MD Work Phone: 9(121)242-375396 [place] [address] 02-14-2025 09:53-0400 Body weight 67.[address] Dallas Reed MD Work Phone: 0(942)605-352896 [place] [address] 02-13-2025 07:14-0400 Body mass index (BMI) [Ratio] 22.5 kg/m2 Dr. Dallas Reed MD Work Phone: 7(445)356-530596 [place] [address] 01-12-2025 13:36-0400 Body temperature 97.4 [degF] Dr. Dallas Reed MD Work Phone: 6(283)311-758196 [place] [address] 01-12-2025 13:36-0400 Diastolic blood pressure 78 mm[Hg] Dr. Dallas Reed MD Work Phone: 7(970)146-301696 [place] [address] 01-12-2025 13:36-0400 Heart rate 61 /min Dr. Dallas Reed MD Work Phone: 8(754)668-450196 [place] [address] 01-12-2025 13:36-0400 Respiratory rate 16 /min Dr. Dallas Reed MD Work Phone: 3(828)805-385496 [place] [address] 01-12-2025 13:36-0400 SaO2% (BldA) [Mass fraction] 96 % Dr. Dallas Reed MD Work Phone: 0(829)161-443296 [place] [address] 01-12-2025 13:36-0400 Systolic blood pressure 142 mm[Hg] Dr. Dallas Reed MD Work Phone: 5(032)331-240383 [place] [address] 01-12-2025 10:30-0400 Body height 172.[address] Dallas Reed MD Work Phone: 2(490)201-467696 [place] [address] 01-12-2025 10:30-0400 Body mass index (BMI) [Ratio] 22.4 kg/m2 Dr. Dallas Reed MD Work Phone: 3(873)678-874996 [place] [address] 01-12-2025 10:30-0400 Body weight 67.[address] Dallas Reed MD Work Phone: 1(048)919-060496 [place] [address] 12-25-2024 15:58-0400 Body temperature 98 [degF] Dr. Dallas Reed MD Work Phone: [facility] 12-25-2024 15:58-0400 Body weight 67.[address] Dallas Reed MD Work Phone: [facility] 12-25-2024 15:58-0400 Diastolic blood pressure 83 mm[Hg] Dr. Dallas Reed MD Work Phone: [facility] 12-25-2024 15:58-0400 Heart rate 68 /min Dr. Dallas Reed MD Work Phone: 1(079)918-982183 [place] [address] 12-25-2024 15:58-0400 Respiratory rate 16 /min Dr. Dallas Reed MD Work Phone: [facility] 12-25-2024 15:58-0400 SaO2% (BldA) [Mass fraction] 97 % Dr. Dallas Reed MD Work Phone: 2(742)799-737183 [place] [address] 12-25-2024 15:58-0400 Systolic blood pressure 160 mm[Hg] Dr. Dallas Reed MD Work Phone: [facility] 12-19-2024 09:00-0400 Diastolic blood pressure 65 mm[Hg] Ramon Lee PT Work Phone: [facility] Comment on above: Before [employer] 12-19-2024 09:00-0400 Heart rate 67 /min Ramon Lee PT Work Phone: [facility] Comment on above: Before [employer]. 12-19-2024 09:00-0400 Systolic blood pressure 138 mm[Hg] Ramon Lee PT Work Phone: [facility] Comment on above: Before [employer] 12-15-2024 09:00-0400 Diastolic blood pressure 67 mm[Hg] Ramon Lee PT Work Phone: [facility] Comment on above: Before [employer] 12-15-2024 09:00-0400 Heart rate 71 /min Ramon Lee PT Work Phone: [facility] Comment on above: Before [employer] 12-15-2024 09:00-0400 Systolic blood pressure 124 mm[Hg] Ramon Lee PT Work Phone: [facility] Comment on above: Before [employer] 12-12-2024 09:00-0400 Diastolic blood pressure 85 mm[Hg] Ramon Lee PT Work Phone: [facility] Comment on above: BP before [employer] 12-12-2024 09:00-0400 Heart rate 73 /min Ramon Lee PT Work Phone: [facility] 12-12-2024 09:00-0400 Systolic blood pressure 150 mm[Hg] Ramon Lee PT Work Phone: [facility] Comment on above: BP before [employer] 12-08-2024 11:25-0400 Body height 172.7 cm Dallas Reed MD Work Phone: [facility] 12-08-2024 11:25-0400 Body mass index (BMI) [Ratio] 22.46 kg/m2 Dallas Reed MD Work Phone: [facility] 12-08-2024 11:25-0400 Body temperature 97.9 [degF] Dallas Reed MD Work Phone: [facility] 12-08-2024 11:25-0400 Body weight 67 kg Dallas Reed MD Work Phone: [facility] 12-08-2024 11:25-0400 Diastolic blood pressure 60 mm[Hg] Dallas Reed MD Work Phone: [facility] 12-08-2024 11:25-0400 Heart rate 71 /min Dallas Reed MD Work Phone: [facility] 12-08-2024 11:25-0400 Respiratory rate 12 /min Dallas Reed MD Work Phone: [facility] 12-08-2024 11:25-0400 SaO2% (BldA) [Mass fraction] 97 % Dallas Reed MD Work Phone: [facility] 12-08-2024 11:25-0400 Systolic blood pressure 110 mm[Hg] Ramontrudy RiceYvonne PT Work Phone: [facility] Comment on above: Prior to [employer] 12-08-2024 09:00-0400 Diastolic blood pressure 62 mm[Hg] Ramontrudy RiceYvonne PT Work Phone: [facility] Comment on above: Prior to [employer] 12-08-2024 09:00-0400 Heart rate 66 /min Ramon Yvonne PT Work Phone: [facility] Comment on above: Prior to [employer] 12-06-2024 09:00-0400 Diastolic blood pressure 77 mm[Hg] Ramon Yvonne PT Work Phone: [facility] Comment on above: Prior to [employer] 12-06-2024 09:00-0400 Heart rate 60 /min Ramontrudy Lee PT Work Phone: [facility] 12-06-2024 09:00-0400 Systolic blood pressure 148 mm[Hg] Ramontrudy RiceYvonne PT Work Phone: [facility] Comment on above: Prior to [employer] 11-28-2024 20:00-0400 Diastolic blood pressure 79 mm[Hg] Dr. Dallas Reed MD Work Phone: [facility] 11-28-2024 20:00-0400 Heart rate 76 /min Dr. Dallas Reed MD Work Phone: [facility] 11-28-2024 20:00-0400 Respiratory rate 18 /min Dr. Dallas Reed MD Work Phone: [facility] 11-28-2024 20:00-0400 SaO2% (BldA) [Mass fraction] 93 % Dr. Dallas Reed MD Work Phone: [facility] 11-28-2024 20:00-0400 Systolic blood pressure 143 mm[Hg] Dr. Dallas Reed MD Work Phone: [facility] 11-28-2024 19:31-0400 Body temperature 98.3 [degF] Dr. Dallas Reed MD Work Phone: [facility] 11-28-2024 17:53-0400 Body height 172.[address] Dallas Reed MD Work Phone: [facility] 11-28-2024 17:53-0400 Body mass index (BMI) [Ratio] 23 kg/m2 Dr. Dallas Reed MD Work Phone: [facility] 11-28-2024 17:53-0400 Body weight 68.[address] Dallas Reed MD Work Phone: [facility] 11-27-2024 10:51-0400 Body mass index (BMI) [Ratio] 22.59 kg/m2 Darya Borden APRN.[employer] Work Phone: [facility] 11-27-2024 10:51-0400 Body temperature 97.7 [degF] Darya Borden [employer] DEVELOPER.[employer] Work Phone: [facility] 11-27-2024 10:51-0400 Body weight 67.6 kg Darya Borden [employer] DEVELOPER.[employer] Work Phone: [facility] 11-27-2024 10:51-0400 Diastolic blood pressure 70 mm[Hg] Darya Borden [employer] DEVELOPER.[employer] Work Phone: [facility] 11-27-2024 10:51-0400 Heart rate 70 /min Darya Borden [employer] DEVELOPER.[employer] Work Phone: [facility] 11-27-2024 10:51-0400 Respiratory rate 14 /min Darya Borden [employer] DEVELOPER.[employer] Work Phone: [facility] 11-27-2024 10:51-0400 SaO2% (BldA) [Mass fraction] 98 % Darya Borden [employer] DEVELOPER.[employer] Work Phone: [facility] 11-27-2024 10:51-0400 Systolic blood pressure 122 mm[Hg] Darya Saira [employer] DEVELOPER.[employer] Work Phone: [facility] 11-24-2024 07:00-0500 Diastolic blood pressure 74 mm[Hg] Ramon Lee PT Work Phone: [facility] 11-24-2024 07:00-0500 Heart rate 90 /min Ramon Lee PT Work Phone: [facility] 11-24-2024 07:00-0500 Systolic blood pressure 144 mm[Hg] Ramon Lee PT Work Phone: [facility] 11-09-2024 14:09-0500 Diastolic blood pressure 63 mm[Hg] Dallas Reed MD Work Phone: [facility] 11-09-2024 14:09-0500 Heart rate 66 /min Dallas Reed MD Work Phone: [facility] 11-09-2024 14:09-0500 Systolic blood pressure 120 mm[Hg] Dallas Reed MD Work Phone: [facility] 11-09-2024 14:00-0500 Body mass index (BMI) [Ratio] 23.02 kg/m2 Dallas Reed MD Work Phone: [facility] 11-09-2024 14:00-0500 Body temperature 98.71 [degF] Dallas Reed MD Work Phone: [facility] 11-09-2024 14:00-0500 Body weight 68.9 kg Dallas Reed MD Work Phone: [facility] 11-07-2024 11:00-0500 Body mass index (BMI) [Ratio] 23.05 kg/m2 Elbert Hawk APRN.[employer] Work Phone: [facility] 11-07-2024 11:00-0500 Body temperature 97.81 [degF] Elbert Hawk APRN.[employer] Work Phone: [facility] 11-07-2024 11:00-0500 Body weight 69 kg Elbert Kenn [employer] DEVELOPER.[employer] Work Phone: [facility] 11-07-2024 11:00-0500 Diastolic blood pressure 81 mm[Hg] Elbert Hawk [employer] DEVELOPER.[employer] Work Phone: [facility] 11-07-2024 11:00-0500 Heart rate 57 /min Elbert Hawk [employer] DEVELOPER.[employer] Work Phone: [facility] 11-07-2024 11:00-0500 Respiratory rate 18 /min Elbert Hawk [employer] DEVELOPER.[employer] Work Phone: [facility] 11-07-2024 11:00-0500 SaO2% (BldA) [Mass fraction] 100 % Elbert Hawk [employer] DEVELOPER.[employer] Work Phone: [facility] 11-07-2024 11:00-0500 Systolic blood pressure 150 mm[Hg] Elbert Hawk [employer] DEVELOPER.[employer] Work Phone: [facility] 09-07-2024 09:53-0500 Body height 173 cm Darya Borden [employer] DEVELOPER.[employer] Work Phone: [facility] 09-07-2024 09:53-0500 Body mass index (BMI) [Ratio] 23.19 kg/m2 Darya RichardsonSaira [employer] DEVELOPER.[employer] Work Phone: [facility] 09-07-2024 09:53-0500 Body weight 69.4 kg Darya Borden [employer] DEVELOPER.[employer] Work Phone: [facility] 09-07-2024 09:53-0500 Diastolic blood pressure 84 mm[Hg] Darya RichardsonSaira [employer] DEVELOPER.[employer] Work Phone: [facility] 09-07-2024 09:53-0500 Heart rate 68 /min Darya RichardsonSaira [employer] DEVELOPER.[employer] Work Phone: [facility] 09-07-2024 09:53-0500 Respiratory rate 14 /min Darya Borden [employer] DEVELOPER.[employer] Work Phone: [facility] 09-07-2024 09:53-0500 SaO2% (BldA) [Mass fraction] 98 % Darya Borden [employer] DEVELOPER.[employer] Work Phone: [facility] 09-07-2024 09:53-0500 Systolic blood pressure 122 mm[Hg] Darya Borden [employer] DEVELOPER.[employer] Work Phone: [facility] 08-31-2024 16:16-0500 Body temperature 98.4 [degF] Dr. Dallas Reed MD Work Phone: [facility] 08-31-2024 16:16-0500 Diastolic blood pressure 90 mm[Hg] Dr. Dallas Reed MD Work Phone: 7(682)732-774083 [place] [address] 08-31-2024 16:16-0500 Heart rate 70 /min Dr. Dallas Reed MD Work Phone: 4(339)340-420083 [place] [address] 08-31-2024 16:16-0500 Respiratory rate 16 /min Dr. Dallas Reed MD Work Phone: [facility] 08-31-2024 16:16-0500 SaO2% (BldA) [Mass fraction] 97 % Dr. Dallas Reed MD Work Phone: [facility] 08-31-2024 16:16-0500 Systolic blood pressure 175 mm[Hg] Dr. Dallas Reed MD Work Phone: [facility] 08-31-2024 06:39-0500 Body mass index (BMI) [Ratio] 23.1 kg/m2 Dr. Dallas Reed MD Work Phone: [facility] 08-31-2024 06:39-0500 Body weight 69.[address] Dallas Reed MD Work Phone: [facility] 07-17-2024 12:41-0400 Body mass index (BMI) [Ratio] 23.87 kg/m2 Dallas Reed MD Work Phone: [facility] 07-17-2024 12:41-0400 Body temperature 98.1 [degF] Dallas Reed MD Work Phone: [facility] 07-17-2024 12:41-0400 Body weight 71.2 kg Dallas Reed MD Work Phone: [facility] 07-17-2024 12:41-0400 Diastolic blood pressure 62 mm[Hg] Dallas Reed MD Work Phone: [facility] 07-17-2024 12:41-0400 Heart rate 64 /min Dallas Reed MD Work Phone: [facility] 07-17-2024 12:41-0400 Respiratory rate 12 /min Dallas Reed MD Work Phone: [facility] 07-17-2024 12:41-0400 Systolic blood pressure 110 mm[Hg] Dallas Reed MD Work Phone: [facility] 06-07-2024 09:00-0400 Diastolic blood pressure 62 mm[Hg] Dallas Reed MD Work Phone: [facility] 06-07-2024 09:00-0400 Systolic blood pressure 124 mm[Hg] Dallas Reed MD Work Phone: [facility] 06-07-2024 08:29-0400 Body mass index (BMI) [Ratio] 24.17 kg/m2 Dallas Reed MD Work Phone: [facility] 06-07-2024 08:29-0400 Body temperature 98.49 [degF] Dallas Reed MD Work Phone: [facility] 06-07-2024 08:29-0400 Body weight 72.1 kg Dallas Reed MD Work Phone: [facility] 06-07-2024 08:29-0400 Heart rate 64 /min Dallas Reed MD Work Phone: [facility] 06-07-2024 08:29-0400 Respiratory rate 12 /min Dallas Reed MD Work Phone: [facility] 05-23-2024 15:20-0400 Diastolic blood pressure 90 mm[Hg] Aubrie Bogner PA-C Work Phone: [facility] Comment on above: fab bp average 05-23-2024 15:20-0400 Systolic blood pressure 190 mm[Hg] Aubrie Bogner PA-C Work Phone: [facility] Comment on above: fab bp average 05-23-2024 14:01-0400 Body height 172.7 cm Aubrie Bogner PA-C Work Phone: [facility] 05-23-2024 14:01-0400 Body mass index (BMI) [Ratio] 23.72 kg/m2 Aubrie Bogner PA-C Work Phone: [facility] 05-23-2024 14:01-0400 Body weight 70.76 kg Aubrie Bogner PA-C Work Phone: [facility] 05-23-2024 14:01-0400 Heart rate 68 /min Aubrie Bogner PA-C Work Phone: [facility] 05-23-2024 14:01-0400 Respiratory rate 12 /min Aubrie Bogner PA-C Work Phone: [facility] 05-23-2024 14:01-0400 SaO2% (BldA) [Mass fraction] 98 % Aubrie Bogner PA-C Work Phone: [facility] 03-11-2024 11:13-0400 Body mass index (BMI) [Ratio] 25.01 kg/m2 Prema Mogadore [employer] DEVELOPER.[employer] Work Phone: [facility] 03-11-2024 11:13-0400 Body temperature 97 [degF] Prema Cyndie [employer] DEVELOPER.[employer] Work Phone: [facility] 03-11-2024 11:13-0400 Body weight 74.6 kg Prema Mogadore [employer] DEVELOPER.[employer] Work Phone: [facility] 03-11-2024 11:13-0400 Diastolic blood pressure 78 mm[Hg] Prema Cyndie [employer] DEVELOPER.[employer] Work Phone: [facility] 03-11-2024 11:13-0400 Heart rate 67 /min Prema Cyndie [employer] DEVELOPER.[employer] Work Phone: [facility] 03-11-2024 11:13-0400 Respiratory rate 18 /min Prema Mogadore [employer] DEVELOPER.[employer] Work Phone: [facility] 03-11-2024 11:13-0400 SaO2% (BldA) [Mass fraction] 97 % Prema Mogadore [employer] DEVELOPER.[employer] Work Phone: [facility] 03-11-2024 11:13-0400 Systolic blood pressure 152 mm[Hg] Prema Cyndie [employer] DEVELOPER.[employer] Work Phone: [facility] 02-09-2024 16:15-0400 Body mass index (BMI) [Ratio] 25.41 kg/m2 Ayla Athy PA-C Work Phone: [facility] 02-09-2024 16:15-0400 Body temperature 97.7 [degF] Ayla Athy PA-C Work Phone: [facility] 02-09-2024 16:15-0400 Body weight 75.8 kg Ayla Athy PA-C Work Phone: [facility] 02-09-2024 16:15-0400 Diastolic blood pressure 80 mm[Hg] Ayla Athy PA-C Work Phone: [facility] 02-09-2024 16:15-0400 Heart rate 58 /min Ayla Athy PA-C Work Phone: [facility] 02-09-2024 16:15-0400 Respiratory rate 16 /min Ayla Athy PA-C Work Phone: [facility] 02-09-2024 16:15-0400 SaO2% (BldA) [Mass fraction] 95 % Ayla Athy PA-C Work Phone: [facility] 02-09-2024 16:15-0400 Systolic blood pressure 124 mm[Hg] Ayla Carrasquillo PA-C Work Phone: [facility] 01-17-2024 08:24-0400 Body height 172.7 cm Shaun Kowalski MD Work Phone: [facility] 01-17-2024 08:24-0400 Body mass index (BMI) [Ratio] 25.32 kg/m2 Shaun Kowalski MD Work Phone: [facility] 01-17-2024 08:24-0400 Body temperature 97.11 [degF] Shaun Kowalski MD Work Phone: [facility] 01-17-2024 08:24-0400 Body weight 75.52 kg Shaun Kowalski MD Work Phone: [facility] 01-17-2024 08:24-0400 Diastolic blood pressure 85 mm[Hg] Shaun Kowalski MD Work Phone: [facility] 01-17-2024 08:24-0400 Heart rate 63 /min Shaun Kowalski MD Work Phone: [facility] 01-17-2024 08:24-0400 Respiratory rate 18 /min Shaun Kowalski MD Work Phone: [facility] 01-17-2024 08:24-0400 SaO2% (BldA) [Mass fraction] 97 % Shaun Kowalski MD Work Phone: [facility] 01-17-2024 08:24-0400 Systolic blood pressure 141 mm[Hg] Shaun Kowalski MD Work Phone: [facility] 01-10-2024 08:57-0400 Body mass index (BMI) [Ratio] 25.09 kg/m2 Darya Borden APRN.CNP Work Phone: [facility] 01-10-2024 08:57-0400 Body weight 74.84 kg Darya Borden APRN.CNP Work Phone: [facility] 01-10-2024 08:57-0400 Diastolic blood pressure 72 mm[Hg] Darya Saira [employer] DEVELOPER[employer] Work Phone: [facility] 01-10-2024 08:57-0400 Heart rate 61 /min Darya Saira [employer] DEVELOPER[employer] Work Phone: [facility] 01-10-2024 08:57-0400 Respiratory rate 18 /min Darya Saira [employer] DEVELOPER.[employer] Work Phone: [facility] 01-10-2024 08:57-0400 Systolic blood pressure 112 mm[Hg] Darya Saira [employer] DEVELOPER.[employer] Work Phone: [facility] 12-27-2023 08:40-0400 Diastolic blood pressure 74 mm[Hg] [facility] 12-27-2023 08:40-0400 Heart rate 67 /min [facility] 12-27-2023 08:40-0400 Respiratory rate 16 /min [facility] 12-27-2023 08:40-0400 SaO2% (BldA) [Mass fraction] 97 % [facility] 12-27-2023 08:40-0400 Systolic blood pressure 159 mm[Hg] [facility] 12-27-2023 07:28-0400 Body height 172.72 cm [facility] 12-27-2023 07:28-0400 Body mass index (BMI) [Ratio] 25 kg/m2 [facility] 12-27-2023 07:28-0400 Body temperature 97.8 [degF] [facility] 12-27-2023 07:28-0400 Body weight 74.84 kg [facility] 08-10-2023 08:08-0500 Body height 172.7 cm Darya Older [employer] DEVELOPER[employer] Work Phone: [facility] 08-10-2023 08:08-0500 Body weight 72.58 kg Darya Older [employer] DEVELOPER.[employer] Work Phone: [facility] 08-10-2023 08:08-0500 Diastolic blood pressure 74 mm[Hg] Darya Older [employer] DEVELOPER.[employer] Work Phone: [facility] 08-10-2023 08:08-0500 Heart rate 68 /min Darya Older [employer] DEVELOPER.[employer] Work Phone: [facility] 08-10-2023 08:08-0500 Respiratory rate 16 /min Darya Older [employer] DEVELOPER.[employer] Work Phone: [facility] 08-10-2023 08:08-0500 SaO2% (BldA) [Mass fraction] 98 % Darya Older [employer] DEVELOPER.[employer] Work Phone: [facility] 08-10-2023 08:08-0500 Systolic blood pressure 122 mm[Hg] Darya Older [employer] DEVELOPER.[employer] Work Phone: [facility] 06-25-2023 13:25-0400 Body height 172.[address] Dallas Reed Work Phone: 5(749)922-970996 [place] [address] 06-25-2023 13:25-0400 Body mass index (BMI) [Ratio] 24.9 kg/m2 Dr. Dallas Reed Work Phone: 9(723)398-043083 [place] [address] 06-25-2023 13:25-0400 Body temperature 97.1 [degF] Dr. Dallas Reed Work Phone: 6(120)476-500783 [place] [address] 06-25-2023 13:25-0400 Body weight 74.[address] Dallas Reed Work Phone: 6(757)834-655383 [place] [address] 06-25-2023 13:25-0400 Diastolic blood pressure 79 mm[Hg] Dr. Dallas Reed Work Phone: 5(116)933-845983 [place] [address] 06-25-2023 13:25-0400 Heart rate 61 /min Dr. Dallas Reed Work Phone: 8(358)971-652583 [place] [address] 06-25-2023 13:25-0400 Respiratory rate 16 /min Dr. Dallas Reed Work Phone: [facility] 06-25-2023 13:25-0400 SaO2% (BldA) [Mass fraction] 98 % Dr. Dallas Reed Work Phone: 5(438)693-219283 [place] [address] 06-25-2023 13:25-0400 Systolic blood pressure 202 mm[Hg] Dr. Dallas Reed Work Phone: 6(346)980-154396 [place] [address] 05-26-2023 14:15-0400 Body height 172.[address] Dallas Reed Work Phone: 4(567)102-309696 [place] [address] 05-26-2023 14:15-0400 Body mass index (BMI) [Ratio] 25.4 kg/m2 Dr. Dallas eRed Work Phone: 8(308)686-833996 [place] [address] 05-26-2023 14:15-0400 Body weight 75.[address] Dallas Reed Work Phone: 9(144)740-513096 [place] [address] 05-26-2023 14:15-0400 Diastolic blood pressure 79 mm[Hg] Dr. Dallas Reed Work Phone: 5(429)680-447596 [place] [address] 05-26-2023 14:15-0400 Heart rate 63 /min Dr. Dallas Reed Work Phone: 6(610)852-565196 [place] [address] 05-26-2023 14:15-0400 Respiratory rate 16 /min Dr. Dallas Reed Work Phone: 4(881)373-622296 [place] [address] 05-26-2023 14:15-0400 SaO2% (BldA) [Mass fraction] 97 % Dr. Dallas Reed Work Phone: 2(367)067-340696 [place] [address] 05-26-2023 14:15-0400 Systolic blood pressure 159 mm[Hg] Dr. Dallas Reed Work Phone: 8(235)426-031196 [place] [address] 04-19-2023 10:15-0400 Diastolic blood pressure 68 mm[Hg] Dr. Dallas Reed Work Phone: 6(446)826-953596 [place] [address] 04-19-2023 10:15-0400 Heart rate 64 /min Dr. Dallas Reed Work Phone: 9(282)504-371583 [place] [address] 04-19-2023 10:15-0400 Respiratory rate 17 /min Dr. Dallas Reed Work Phone: 6(645)576-949096 [place] [address] 04-19-2023 10:15-0400 SaO2% (BldA) [Mass fraction] 98 % Dr. Dallas Reed Work Phone: [facility] 04-19-2023 10:15-0400 Systolic blood pressure 169 mm[Hg] Dr. Dallas Reed Work Phone: [facility] 04-16-2023 10:16-0400 Body weight 74.39 kg Dallas Reed MD Work Phone: [facility] 04-16-2023 10:16-0400 Diastolic blood pressure 70 mm[Hg] Dallas Reed MD Work Phone: [facility] 04-16-2023 10:16-0400 Heart rate 60 /min Dallas Reed MD Work Phone: [facility] 04-16-2023 10:16-0400 Respiratory rate 16 /min Dallas Reed MD Work Phone: [facility] 04-16-2023 10:16-0400 Systolic blood pressure 146 mm[Hg] Dallas Reed MD Work Phone: [facility] 04-08-2023 17:09-0400 Body temperature 97.8 [degF] Dr. Dallas Reed Work Phone: [facility] 04-08-2023 17:09-0400 Diastolic blood pressure 66 mm[Hg] Dr. Dallas Reed Work Phone: [facility] 04-08-2023 17:09-0400 Heart rate 71 /min Dr. Dallas Reed Work Phone: [facility] 04-08-2023 17:09-0400 Respiratory rate 20 /min Dr. Dallas Reed Work Phone: [facility] 04-08-2023 17:09-0400 SaO2% (BldA) [Mass fraction] 99 % Dr. Dallas Reed Work Phone: [facility] 04-08-2023 17:09-0400 Systolic blood pressure 159 mm[Hg] Dr. Dallas Reed Work Phone: [facility] 04-08-2023 08:00-0400 Inhaled oxygen flow rate 2 L/min Dr. Dallas Reed Work Phone: [facility] 04-08-2023 01:32-0400 Body mass index (BMI) [Ratio] 25.2 kg/m2 Dr. Dallas Reed Work Phone: [facility] 04-08-2023 01:32-0400 Body weight 75.[address] Dallas Reed Work Phone: 5(323)111-441996 [place] [address] 04-07-2023 10:14-0400 Body height 172.[address] Dallas Reed Work Phone: 9(947)188-361296 [place] [address] 03-05-2023 07:49-0400 Diastolic blood pressure 75 mm[Hg] Dr. Dallas Reed Work Phone: [facility] 03-05-2023 07:49-0400 Systolic blood pressure 156 mm[Hg] Dr. Dallas Reed Work Phone: [facility] 03-04-2023 09:57-0400 Diastolic blood pressure 76 mm[Hg] Dallas Reed MD Work Phone: [facility] 03-04-2023 09:57-0400 Heart rate 62 /min Dallas Reed MD Work Phone: [facility] 03-04-2023 09:57-0400 Systolic blood pressure 160 mm[Hg] Dallas Reed MD Work Phone: [facility] 03-04-2023 09:48-0400 Body weight 73.48 kg Dallas Reed MD Work Phone: [facility] 03-04-2023 09:48-0400 Respiratory rate 12 /min Dallas Reed MD Work Phone: [facility] 02-25-2023 14:17-0400 Body mass index (BMI) [Ratio] 25 kg/m2 Dr. Dallas Reed Work Phone: [facility] 02-25-2023 14:17-0400 Body temperature 98.1 [degF] Dr. Dallas Reed Work Phone: [facility] 02-25-2023 14:17-0400 Body weight 74.[address] Dallas Reed Work Phone: 2(622)487-672583 [place] [address] 02-25-2023 14:17-0400 Diastolic blood pressure 65 mm[Hg] Dr. Dallas Reed Work Phone: 3(918)747-272796 [place] [address] 02-25-2023 14:17-0400 Heart rate 68 /min Dr. Dallas Reed Work Phone: 3(601)141-095696 [place] [address] 02-25-2023 14:17-0400 Respiratory rate 16 /min Dr. Dallas Reed Work Phone: 9(568)320-685983 [place] [address] 02-25-2023 14:17-0400 SaO2% (BldA) [Mass fraction] 98 % Dr. Dallas Reed Work Phone: 1(840)419-256396 [place] [address] 02-25-2023 14:17-0400 Systolic blood pressure 129 mm[Hg] Dr. Dallas Reed Work Phone: 5(767)213-379183 [place] [address] 02-23-2023 09:51-0400 Diastolic blood pressure 97 mm[Hg] Dr. Dallas Reed Work Phone: 7(390)006-938783 [place] [address] 02-23-2023 09:51-0400 Systolic blood pressure 199 mm[Hg] Dr. Dallas Reed Work Phone: 9(201)500-220383 [place] [address] 02-23-2023 09:36-0400 Body temperature 97.8 [degF] Dr. Dallas Reed Work Phone: 5(746)327-433183 [place] [address] 02-23-2023 09:36-0400 Heart rate 55 /min Dr. Dallas Reed Work Phone: 7(331)890-698883 [place] [address] 02-23-2023 09:36-0400 Respiratory rate 18 /min Dr. Dallas Reed Work Phone: [facility] 02-23-2023 09:36-0400 SaO2% (BldA) [Mass fraction] 99 % Dr. Dallas Reed Work Phone: [facility] 02-01-2023 10:45-0400 Body temperature 96.91 [degF] Aubrie Bogner PA-C Work Phone: [facility] 02-01-2023 10:45-0400 Body weight 73.48 kg Aubrie Bogner PA-C Work Phone: [facility] 02-01-2023 10:45-0400 Diastolic blood pressure 64 mm[Hg] Aubrie Bogner PA-C Work Phone: [facility] 02-01-2023 10:45-0400 Heart rate 64 /min Aubrie Bogner PA-C Work Phone: [facility] 02-01-2023 10:45-0400 Respiratory rate 16 /min Aubrie Bogner PA-C Work Phone: [facility] 02-01-2023 10:45-0400 SaO2% (BldA) [Mass fraction] 99 % Aubrie Bogner PA-C Work Phone: [facility] 02-01-2023 10:45-0400 Systolic blood pressure 108 mm[Hg] Aubrie Bogner PA-C Work Phone: [facility] 01-15-2023 11:59-0400 Diastolic blood pressure 72 mm[Hg] Lisa Rodriguez MD Work Phone: [facility] 01-15-2023 11:59-0400 Heart rate 67 /min Lisa Rodriguez MD Work Phone: [facility] 01-15-2023 11:59-0400 Respiratory rate 18 /min Lisa Rodriguez MD Work Phone: [facility] 01-15-2023 11:59-0400 SaO2% (BldA) [Mass fraction] 97 % Lisa Rodriguez MD Work Phone: [facility] 01-15-2023 11:59-0400 Systolic blood pressure 147 mm[Hg] Lisa Rodriguez MD Work Phone: [facility] 01-15-2023 11:43-0400 Body temperature 97.81 [degF] Lisa Rodriguez MD Work Phone: [facility] 01-15-2023 10:54-0400 Body height 172.7 cm Lisa Rodriguez MD Work Phone: [facility] 01-15-2023 10:54-0400 Body mass index (BMI) [Ratio] 24.33 kg/m2 Lisa Rodriguez MD Work Phone: [facility] 01-15-2023 10:54-0400 Body weight 72.58 kg Lisa Rodriguez MD Work Phone: [facility] 01-07-2023 16:10-0400 Body height 172.7 cm Lisa Rodriguez MD Work Phone: [facility] 01-07-2023 16:10-0400 Body weight 72.58 kg Lisa Rodriguez MD Work Phone: [facility] 01-07-2023 16:10-0400 Diastolic blood pressure 68 mm[Hg] Lisa Rodriguez MD Work Phone: [facility] 01-07-2023 16:10-0400 Heart rate 74 /min Lisa Rodriguez MD Work Phone: [facility] 01-07-2023 16:10-0400 Systolic blood pressure 114 mm[Hg] Lisa Rodriguez MD Work Phone: [facility] 12-30-2022 11:57-0400 Body temperature 97.39 [degF] Dallas Reed MD Work Phone: [facility] 12-30-2022 11:57-0400 Body weight 72.35 kg Dallas Reed MD Work Phone: [facility] 12-30-2022 11:57-0400 Diastolic blood pressure 80 mm[Hg] Dallas Reed MD Work Phone: [facility] 12-30-2022 11:57-0400 Heart rate 64 /min Dallas Reed MD Work Phone: [facility] 12-30-2022 11:57-0400 Respiratory rate 16 /min Dallas Reed MD Work Phone: [facility] 12-30-2022 11:57-0400 Systolic blood pressure 132 mm[Hg] Dallas Reed MD Work Phone: [facility] 07-03-2022 16:55-0400 Body temperature 97.39 [degF] Gavin Rivero [employer]ELOPER[employer] Work Phone: [facility] 07-03-2022 16:55-0400 Body weight 76.11 kg Gavin Rivero [employer] DEVELOPER.[employer] Work Phone: [facility] 07-03-2022 16:55-0400 Diastolic blood pressure 78 mm[Hg] Gavin Rivero [employer] DEVELOPER.[employer] Work Phone: [facility] 07-03-2022 16:55-0400 Heart rate 69 /min Gavin Rivero [employer] DEVELOPER.[employer] Work Phone: [facility] 07-03-2022 16:55-0400 Respiratory rate 18 /min Gavin Rivero [employer] R[employer] DEVELOPER.[employer] Work Phone: [facility] 07-03-2022 16:55-0400 SaO2% (BldA) [Mass fraction] 98 % Gavin Rivero [employer] DEVELOPER.[employer] Work Phone: [facility] 07-03-2022 16:55-0400 Systolic blood pressure 122 mm[Hg] Gavin Rivero [employer] DEVELOPER.[employer] Work Phone: [facility] 02-17-2022 11:32-0400 Body temperature 99.39 [degF] Nona Haider [employer] DEVELOPER.[employer] Work Phone: [facility] 02-17-2022 11:32-0400 Body weight 77.2 kg Nona Maloney APRN.[employer] Work Phone: [facility] 02-17-2022 11:32-0400 Diastolic blood pressure 68 mm[Hg] Nona Maloney APRN.[employer] Work Phone: [facility] 02-17-2022 11:32-0400 Heart rate 82 /min Nona Maloney APRN.[employer] Work Phone: [facility] 02-17-2022 11:32-0400 Respiratory rate 20 /min Nona Maloney APRN.[employer] Work Phone: [facility] 02-17-2022 11:32-0400 SaO2% (BldA) [Mass fraction] 96 % Nona Maloney APRN.[employer] Work Phone: [facility] 02-17-2022 11:32-0400 Systolic blood pressure 122 mm[Hg] Nona Maloney APRN.[employer] Work Phone: [facility] 02-10-2022 09:14-0400 Diastolic blood pressure 76 mm[Hg] Mi Nurse Work Phone: [facility] 02-10-2022 09:14-0400 Heart rate 62 /min Mi Nurse Work Phone: [facility] 02-10-2022 09:14-0400 Systolic blood pressure 128 mm[Hg] Mi Nurse Work Phone: [facility] 01-13-2022 08:58-0400 Diastolic blood pressure 64 mm[Hg] Dallas Reed MD Work Phone: [facility] 01-13-2022 08:58-0400 Heart rate 60 /min Dallas Reed MD Work Phone: [facility] 01-13-2022 08:58-0400 Systolic blood pressure 150 mm[Hg] Dallas Reed MD Work Phone: [facility] 01-13-2022 08:47-0400 Body temperature 97.5 [degF] Dallas Reed MD Work Phone: [facility] 01-13-2022 08:47-0400 Body weight 73.94 kg Dallas Reed MD Work Phone: [facility] 01-13-2022 08:47-0400 Respiratory rate 20 /min Dallas Reed MD Work Phone: [facility] 11-12-2021 14:57-0500 Body height 172.[address] Dallas Reed Work Phone: [facility] Work Phone: 11-12-2021 14:57-0500 Body mass index (BMI) [Ratio] 25.4 kg/m2 Dr. Dallas Reed Work Phone: [facility] Work Phone: 11-12-2021 14:57-0500 Body weight 75.[address] Dallas Reed Work Phone: [facility] Work Phone: 11-12-2021 14:57-0500 Diastolic blood pressure 73 mm[Hg] Dr. Dallas Reed Work Phone: [facility] Work Phone: 11-12-2021 14:57-0500 Heart rate 92 /min Dr. Dallas Reed Work Phone: [facility] Work Phone: 11-12-2021 14:57-0500 Respiratory rate 18 /min Dr. Dallas Reed Work Phone: [facility] Work Phone: 11-12-2021 14:57-0500 SaO2% (BldA) [Mass fraction] 99 % Dr. Dallas Reed Work Phone: [facility] Work Phone: 11-12-2021 14:57-0500 Systolic blood pressure 132 mm[Hg] Dr. Dallas Reed Work Phone: [facility] Work Phone: 07-19-2019 11:45-0400 Body Temperature 98.01 [degF] [place] 07-19-2019 11:45-0400 BP Diastolic 94 mm[Hg] [place] 07-19-2019 11:45-0400 BP Systolic 165 mm[Hg] [place] 07-19-2019 11:45-0400 Pulse (Heart Rate) 76 /min [place] 07-19-2019 11:45-0400 Pulse Oximetry 95 % [place] 07-19-2019 11:45-0400 Respiratory Rate 20 /min [place] 07-19-2019 07:14-0400 BMI (Body Mass Index) 28.94 kg/m2 [place] 07-19-2019 07:14-0400 Body weight 88.91 kg [place] 07-19-2019 07:14-0400 Height 175.3 cm [place] Encounters Encounter Date Encounter Type Care Provider Facility Start: 07-02-2025 ambulatory Donato Longoria Facility:[facility] Start: 06-11-2025 End: 06-11-2025 ambulatory DARYA BORDEN Facility:[facility] Start: 06-05-2025 End: 06-05-[address] Dallas eRed MD Work Phone: -Laboratory Start: 06-05-2025 End: 06-05-2025 Patient encounter procedure Mike Jay NP-[facility] -Laboratory Work Phone: Start: 06-05-2025 End: 06-05-2025 Patient encounter procedure Mike HENSLEY -[facility] Work Phone: Start: 06-05-2025 End: 06-05-[address] Dallas Reed MD Work Phone: -[facility] Start: 06-05-2025 End: 06-05-2025 ambulatory Mike Jay NP Facility:[facility] Start: 05-24-2025 End: 05-24-2025 ambulatory Vicky Crandall MA [facility] Start: 05-24-2025 End: 05-24-2025 Patient encounter procedure Vicky Crandall MA [facility] Comment on above: Population Health Na vigation Outreach (Healthy at Home ) NSTEMI (non-ST eleva kamryn myocardial infarction) (HCC) (Primary Dx); Chronic diastolic CHF (congestive heart failure) (HCC); Stage 3b chronic kidney disease (HCC); Essential hypertension; Anemia of chronic disease; Type II endoleak of aortic graft; Thrombocytopenia; Acquired hypothyroidism; Sacral decubitus ulcer, stage II (HCC) Transition Of Care I nitial phone contact for Transitional Care Management Start: 05-23-2025 End: 05-23-2025 ambulatory Shirley Walker RN [employer] Start: 05-23-2025 End: 05-23-2025 Telephone encounter Shirley Walker RN [employer] Control Assessor Management Comment on above: Opened In Error (OPE NATALIYA IN ERROR/) Start: 05-22-2025 Non-patient / Non-visit Dr. Charleen Laughlin MD -[facility] Start: 05-21-2025 Non-patient / Non-visit Dr. Lorraine albright MD -[facility] Start: 05-21-2025 ambulatory [facility] Facility:[facility] Start: 05-21-2025 End: 05-22-2025 Evaluation and management of inpatient Dr. Cameron Solares DO -Intensive Care Unit Work Phone: Start: 05-18-2025 End: 05-18-2025 Office outpatient visit 25 minutes Darya Borden [employer] DEVEL[employer] Work Phone: [facility] [place] Comment on above: Fatigue, unspecified type (Primary Dx); Essential hypertension; Chronic diastolic CHF (congestive heart failure) (HCC); Anemia, unspecified type; Subclinical hypothyroidism Start: 05-18-2025 End: 05-18-2025 ambulatory DARYA BORDEN Facility:[facility] Start: 05-10-2025 End: 05-10-2025 Patient encounter procedure Mike Jay ACID PURIFIER-C -[facility] Work Phone: Start: 05-10-2025 End: 05-10-[address] Dallas Reed MD Work Phone: -[facility] Start: 05-10-2025 End: 05-10-2025 ambulatory Mike Jay ACID PURIFIER Facility:[facility] Start: 04-30-2025 End: 04-30-[address] Dallas Reed MD Work Phone: -Cat Scan [facility] Start: 04-30-2025 End: 04-30-[address] Dustin Hawk MD -Cat Scan [facility] Work Phone: Start: 04-30-2025 End: 04-30-2025 ambulatory Dallas Reed Facility:[facility] Start: 04-18-2025 End: 04-18-[address] Dustin Hawk MD -[facility] Work Phone: Start: 04-18-2025 End: 04-18-[address] Dallas Reed MD Work Phone: -[facility] Start: 04-03-2025 End: 04-03-2025 ambulatory Luci Matute RN [employer] Control Assessor Management Comment on above: Bi-Weekly Outreach ( Recurring) for Chronic Disease Management, Bi-Weekly Outreach (Recurring) for Chronic Disease Management Start: 03-28-2025 End: 03-28-2025 Refill Dallas Reed MD Work Phone: [facility] [place] Comment on above: Refill Request Start: 03-20-2025 End: 03-20-2025 ambulatory Adriane White RN [employer] Start: 03-20-2025 End: 03-20-2025 Patient encounter procedure Adriane White RN [employer] Control Assessor Management Comment on above: Bi-Weekly Outreach ( Recurring) for Chronic Disease Management Start: 03-19-2025 End: 03-19-2025 Telephone encounter Essence Romero PA-C Work Phone: [phone] Comment on above: 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) Start: 03-16-2025 End: 03-16-2025 Patient encounter status Ana Bobo MD Work Phone: [facility] Start: 03-16-2025 End: 03-16-2025 Subsequent hospital visit by physician Ana Bobo MD Work Phone: [facility] Special Procedures Comment on above: Encounter for prepro cedural laboratory examination (Primary Dx); Type II endoleak of aortic graft Start: 03-16-2025 End: 03-16-2025 ambulatory [facility] Start: 03-16-2025 End: 03-16-2025 Encounter for preprocedural laboratory examination [facility] Start: 03-13-2025 End: 03-13-2025 Follow-up encounter Darya Borden APRN.CNP Work Phone: [facility] [place] Start: 03-12-2025 End: 03-12-2025 Telephone encounter Munira Dickinson RN [facility] Special Procedur es Start: 03-12-2025 End: 03-12-2025 Office outpatient visit 25 minutes Darya Borden APRN.[employer] Work Phone: [facility] [place] Comment on above: Subclinical hypothyr oidism (Primary Dx); Fatigue, unspecified type; Type II endoleak of aortic graft; Anemia of chronic disease; Stage 3b chronic kidney disease (HCC); Essential hypertension; Chronic diastolic CHF (congestive heart failure) (HCC) Start: 03-12-2025 End: 03-12-2025 ambulatory DARYA BORDEN Facility:[facility] Start: 03-02-2025 End: 03-02-2025 ambulatory Adriane White RN [employer] Assessor Management Start: 03-02-2025 End: 03-02-2025 Patient encounter procedure Adriane White RN [employer] Comment on above: Bi-Weekly Outreach ( Recurring) for Chronic Disease Management Start: 03-01-2025 End: 03-01-2025 Documentation procedure Ana Bobo MD Work Phone: [facility] Special Procedures Start: 02-27-2025 End: 02-27-2025 Patient encounter procedure Carine PEREZ -[facility] Work Phone: Start: 02-27-2025 End: 02-27-[address] Dallas Reed MD Work Phone: [facility] Work Phone: Start: 02-26-2025 End: 02-26-2025 ambulatory Adriane White group managerQuality Control Assessor Management Start: 02-26-2025 End: 02-26-2025 Patient encounter procedure Adriane White group managerQuality Control Assessor Management Comment on above: Care Coordination (C lerma review and outreach for chf gdmt care path) Start: 02-19-2025 End: 02-19-2025 ambulatory Adriane White RN Quality Control Assessor Management Start: 02-19-2025 End: 02-19-2025 Patient encounter procedure Adriane White group managerQuality Control Assessor Management Comment on above: Bi-Weekly Outreach ( Recurring) for Chronic Disease Management Start: 02-15-2025 End: 02-16-2025 Refill Dallas Reed MD Work Phone: [facility] [place] Comment on above: Refill Request Start: 02-14-2025 ambulatory Dustin Hawk Facility:[facility] Start: 02-14-2025 Non-patient / Non-visit Dr. Dustin ramirez MD -[facility] Start: 02-14-2025 End: 02-14-2025 Admission to same day surgery center Dr. Dustin Hawk MD -Slip Cover Maker/Special Procedures Work Phone: Start: 02-14-2025 End: 02-14-[address] Dallas Reed MD Work Phone: [facility] Work Phone: Start: 02-01-2025 End: 02-01-2025 ambulatory Adriane White RN Quality Control Assessor Management Start: 02-01-2025 End: 02-01-2025 Patient encounter procedure Adriane White RN Quality Control Assessor Management Comment on above: Bi-Weekly Outreach ( Recurring) for Chronic Disease Management Start: 01-18-2025 End: 01-18-2025 Patient encounter procedure [facility]ERE[facility] Work Phone: Start: 01-17-2025 End: 01-18-2025 ambulatory Adriane White RN Quality Control Assessor Management Start: 01-17-2025 End: 01-17-2025 Patient encounter procedure Adriane White RN Quality Control Assessor Management Comment on above: Initial enrollment o zoie for Chronic Disease Management Start: 01-12-2025 End: 01-12-2025 Emergency department patient visit Dr. Dallas Reed MD Work Phone: -Emergency Department Work Phone: Start: 12-26-2024 End: 12-26-2024 ambulatory Adriane White RN Quality Control Assessor Management Start: 12-26-2024 End: 12-26-2024 Patient encounter procedure Adriane White RN Quality Control Assessor Management Comment on above: Weekly phone contact (Recurring) for Transitional Care Management Start: 12-25-2024 End: 12-25-[address] Dustin Hawk MD -[facility] Work Phone: Start: 12-25-2024 End: 12-25-2024 ambulatory Dustin Hawk Facility:[facility] Start: 12-22-2024 End: 12-22-2024 ambulatory Ramon Lee PT Work Phone: [facility] Comment on above: Proximal leg weaknes s (Primary Dx); Fall, subsequent encounter; Contusion of scalp, subsequent encounter Start: 12-19-2024 End: 12-19-2024 Patient encounter procedure Adriane White RN Quality Control Assessor Management Comment on above: Weekly phone contact (Recurring) for Transitional Care Management Start: 12-19-2024 End: 12-19-2024 ambulatory Ramon Yvonne PT Work Phone: [facility] Comment on above: Proximal leg weaknes s (Primary Dx); Fall, subsequent encounter; Contusion of scalp, subsequent encounter Start: 12-15-2024 End: 12-15-2024 ambulatory Ramon Yvonne PT Work Phone: [facility] Comment on above: Proximal leg weaknes s (Primary Dx); Fall, subsequent encounter; Contusion of scalp, subsequent encounter Start: 12-12-2024 End: 12-12-2024 ambulatory Ramon Lee PT Work Phone: [facility] Comment on above: Proximal leg weaknes s (Primary Dx) Start: 12-11-2024 End: 12-11-2024 ambulatory Adriane White group managerQuality Control Assessor Management Start: 12-11-2024 End: 12-11-2024 Patient encounter procedure Adriane White group managerQuality Control Assessor Management Comment on above: Weekly phone contact (Recurring) for Transitional Care Management Refill Request Start: 12-11-2024 End: 12-11-2024 Telephone encounter Emily Fagan [facility] Work Phone: [facility] Comment on above: Medication Question Start: 12-08-2024 End: 12-08-2024 ambulatory DALLAS REED Facility:[facility] Start: 12-08-2024 End: 12-08-2024 Patient encounter procedure Dallas Reed MD Work Phone: [facility] [place] Comment on above: 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); Chronic diastolic CHF (congestive heart failure) (HCC); Stage 3b chronic kidney disease (HCC); Essential hypertension Start: 12-08-2024 End: 12-08-2024 ambulatory Ramon Lee PT Work Phone: [facility] Comment on above: Fall, subsequent enc ounter (Primary Dx); Proximal leg weakness; Contusion of scalp, subsequent encounter Start: 12-06-2024 End: 12-06-2024 ambulatory Ramon Lee PT Work Phone: [facility] Comment on above: Fall, subsequent enc ounter (Primary Dx); Proximal leg weakness; Contusion of scalp, subsequent encounter Start: 12-04-2024 End: 12-05-2024 ambulatory Adriane White group managerQuality Control Assessor Management Start: 12-04-2024 End: 12-05-2024 Patient encounter procedure Adriane White RN Quality Control Assessor Management Comment on above: Initial phone contac t for Transitional Care Management Transition Of Care; Heart Failure (TCM Pharmacy-Hospital discharge 12/01/24) Start: 12-02-2024 End: 12-02-2024 Telephone encounter Dustin Lombardi X RAY DEVELOPER.PRODUCT PROMOTER RETAIL PET Work Phone: Cardiothoracic Comment on above: Patient Question; Me dication Problem Start: 11-28-2024 End: 12-01-2024 Evaluation and management of inpatient RAN AGUSTÍN Facility:[facility] Start: 11-28-2024 End: 11-28-2024 Emergency department patient visit Dr. Dallas Reed MD Work Phone: -Emergency Department Work Phone: Start: 11-28-2024 End: 11-28-2024 Subsequent hospital visit by physician [facility] Scan Comment on above: Left lower quadrant abdominal pain [R10.32] Start: 11-28-2024 End: 11-28-2024 ambulatory Tali Maldonado APRN.PRODUCT PROMOTER RETAIL PET Work Phone: Critical Care Start: 11-28-2024 End: 12-08-2024 Telephone encounter Dallas Reed MD Work Phone: [facility] [place] Comment on above: Results Start: 11-27-2024 End: 11-27-2024 ambulatory DARYA BOREDN Facility:[facility] Start: 11-27-2024 End: 11-27-2024 ambulatory DALLAS REED Facility:[facility] Start: 11-27-2024 End: 11-27-2024 Patient encounter procedure Gavin Rivero APRN.PRODUCT PROMOTER RETAIL PET Work Phone: [facility] Comment on above: Procedure not ammy d out (Primary Dx) Left lower quadrant abdominal pain (Primary Dx) Start: 11-24-2024 End: 11-24-2024 ambulatory Ramon Lee PT Work Phone: [facility] Comment on above: Fall, subsequent enc ounter (Primary Dx); Proximal leg weakness; Contusion of scalp, subsequent encounter Start: 11-21-2024 End: 11-21-2024 ambulatory Ramon Lee PT Work Phone: [facility] Comment on above: Fall, subsequent enc ounter (Primary Dx); Contusion of scalp, subsequent encounter; Proximal leg weakness Start: 11-09-2024 End: 11-09-2024 ambulatory DALLAS REED Facility:[facility] Start: 11-09-2024 End: 11-09-2024 Office outpatient visit 15 minutes Dallas Reed MD Work Phone: [facility] [place] Comment on above: Contusion of scalp, subsequent encounter (Primary Dx); Fall, subsequent encounter; Proximal leg weakness Start: 11-07-2024 End: 11-07-2024 ambulatory DALLAS REED Facility:[facility] Start: 11-07-2024 End: 11-07-2024 Patient encounter procedure Elbert Hawk APRN.PRODUCT PROMOTER RETAIL PET Work Phone: [facility] Comment on above: Abrasion of head, in itial encounter (Primary Dx) Start: 10-02-2024 End: 10-02-2024 Refill Darya Borden APRN.PRODUCT PROMOTER RETAIL PET Work Phone: [facility] [place] Comment on above: Refill Request Start: 09-15-2024 End: 09-15-[address] Lara Fonseca MD -[facility] Work Phone: Start: 09-15-2024 End: 09-15-2024 ambulatory Lara Fonseca Facility:[facility] Start: 09-08-2024 End: 09-08-2024 Telephone encounter Darya Borden APRN.PRODUCT PROMOTER RETAIL PET Work Phone: [facility] [place] Comment on above: Results Start: 09-07-2024 End: 09-07-2024 ambulatory DARYA BORDEN Facility:[facility] Start: 09-07-2024 End: 09-07-2024 Patient encounter procedure Darya Borden APRN.PRODUCT PROMOTER RETAIL PET Work Phone: [facility] [place] Comment on above: Medicare annual well ness visit, subsequent (Primary Dx); Hypothyroidism, unspecified type; TIA (transient ischemic attack); Mixed hyperlipidemia; Primary hypertension; Screening for depression; Encounter for screening examination for other mental health and behavioral disorders; Spigelian hernia; Stage 3b chronic kidney disease (HCC) Start: 08-31-2024 ambulatory Lara Fonseca Facilit y:[facility] Start: 08-31-2024 Non-patient / Non-visit Dr. Garrison Fonseca MD -[facility] Start: 08-31-2024 End: 08-31-2024 Admission to same day surgery center Dr. Lara Fonseca MD -Surgical Day Care Start: 08-31-2024 End: 08-31-2024 ambulatory Lara Fonseca Facility:[facility] Start: 08-28-2024 End: 08-28-2024 ambulatory Fide Goff RN Quality Control Assessor Management Comment on above: CDM (Chronic Disease Management Routine Call/) Start: 08-24-2024 End: 08-24-2024 ambulatory Fide Goff RN Quality Control Assessor Management Comment on above: CDM (Chronic Disease Management Routine Call/) Start: 08-23-2024 ambulatory Lara Fonseca Facilit y:[facility] Start: 08-23-2024 Non-patient / Non-visit Dr. Garrison Fonseca MD -[facility] Start: 08-04-2024 End: 08-04-2024 ambulatory DALLAS REED Facility:[facility] Start: 08-01-2024 End: 08-03-2024 Telephone encounter Dallas Reed MD Work Phone: [facility] [place] Comment on above: Surgical Clearance F orms Start: 07-26-2024 End: 07-26-2024 ambulatory Lara Fonseca Facility:[facility] Start: 07-24-2024 End: 07-24-2024 ambulatory Fide Goff RN Quality Control Assessor Management Comment on above: CDM (Chronic Disease Management Routine Call/) Start: 07-22-2024 End: 07-22-2024 ambulatory Fide Goff RN Quality Control Assessor Management Comment on above: CDM (Chronic Disease Management Routine Call/) Start: 07-17-2024 End: 07-17-2024 ambulatory JOCELIN MAXIME Facility:[facility] Start: 07-17-2024 End: 07-17-2024 Office outpatient visit 25 minutes Dallas Reed MD Work Phone: [facility] [place] Comment on above: Spigelian hernia (Pr imary Dx); 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); S/P AAA repair; Pancreatic cyst; Splenomegaly Start: 07-11-2024 End: 07-11-2024 Emergency department patient visit Dallas Reed Facility:[facility] Start: 07-11-2024 End: 07-11-2024 ambulatory DALLAS ERED Facility:[facility] Start: 07-11-2024 End: 07-11-2024 Patient encounter procedure Gavin Rivero X RAY DEVELOPER.PRODUCT PROMOTER RETAIL PET Work Phone: [facility] Comment on above: Procedure not ammy d out (Primary Dx) Start: 07-07-2024 End: 07-07-2024 ambulatory Carine Noble Facility:[facility] Start: 06-22-2024 End: 06-23-2024 ambulatory Fide Goff RN Quality Control Assessor Management Comment on above: CDM (Engagement Call ) Start: 06-07-2024 End: 06-07-2024 Office outpatient visit 25 minutes Dallas Reed MD Work Phone: [facility] [place] Comment on above: TIA (transient ische raegan attack) (Primary Dx); S/P carotid endarterectomy right; Chronic diastolic CHF (congestive heart failure) (HCC); Stage 3b chronic kidney disease (HCC); Thrombocytopenia (HCC); Abnormal TSH; Mixed hyperlipidemia Start: 05-23-2024 End: 05-23-2024 Office outpatient visit 25 minutes Aubrie Gomez PA-C Work Phone: [facility] [place] Comment [...] Phone: [facility] [place] Comment on above: Consult Start: 03-22-2024 Refill Darya silva X RAY DEVELOPER.PRODUCT PROMOTER RETAIL PET Work Phone: [facility] [place] Comment on above: Refill Request Start: 03-11-2024 End: 03-11-2024 Patient encounter procedure Prema Agee DUSTIN.PRODUCT PROMOTER RETAIL PET Work Phone: [facility] Comment on above: Chronic right should er pain (Primary Dx) Start: 03-07-2024 ambulatory Fide Goff RN [facility] Care Management Comment on above: Community Monitoring Outreach Start: 03-06-2024 Telephone encounter Dallas casey MD Work Phone: [facility] [place] Comment on above: fax referral to Dr Gilda cervantes Refill Request Start: 02-29-2024 Telephone encounter Dallas casey MD Work Phone: [facility] [place] Comment on above: Results Start: 02-10-2024 Refill Dallas jaramillo MD Work Phone: [facility] [place] Comment on above: Refill Request Start: 02-09-2024 End: 02-09-2024 Subsequent hospital visit by physician Xr [facility] [place] Work Phone: Radiology Comment on above: Acute pain of both s angelics [M25.511, M25.512] Start: 02-09-2024 End: 02-09-2024 Patient encounter procedure Ayla Carrasquillo PA-C Work Phone: [place] [facility] Comment on above: Acute pain [...] End: 01-10-2024 Patient encounter procedure Darya Borden APRN.PRODUCT PROMOTER RETAIL PET Work Phone: [facility] [place] Comment on above: Primary hypertension (Primary Dx); [...] encounter status Shaun Kowalski MD Work Phone: [facility] Start: 12-31-2023 Telephone encounter Shaun mendoza MD Work Phone: Vascular Surg Dept Comment on above: Consult Start: 12-27-2023 End: 12-27-2023 ambulatory [facility] Work Phone: Start: 12-27-2023 End: 12-27-2023 Patient encounter procedure [facility] Work [facility]: Start: 11-28-2023 ambulatory Fide Goff RN [facility] Management Comment on above: Community Monitoring Outreach Start: 08-10-2023 End: 08-10-2023 Patient encounter procedure Darya Singh APRN.CNP Work Phone: [facility] [place] Comment on above: Medicare annual well ness visit, subsequent (Primary Dx) Start: 08-03-2023 End: 08-03-[address] Dallas Reed Work Phone: [facility] Work Phone: Start: 08-03-2023 End: 08-03-[address] Dallas Reed Work Phone: [facility] Work Phone: Start: 06-25-2023 Refill Dallas jaramillo MD Work Phone: [facility] [place] Comment on above: Refill Request Start: 06-25-2023 End: 06-25-[address] Dallas Reed Work Phone: [facility] Work Phone: Start: 05-26-2023 End: 05-26-[address] Dallas Reed Work Phone: [facility] Work Phone: Start: 05-26-2023 End: 05-26-[address] Dallas Reed Work Phone: [facility] Work Phone: Start: 05-20-2023 ambulatory [facility] Comment on above: Community Monitoring Outreach Start: 04-19-2023 End: 04-19-[address] Dallas Reed Work Phone: [facility] Work Phone: Start: 04-19-2023 End: 04-19-[address] Dallas Reed Work Phone: [facility] Work Phone: Start: 04-16-2023 End: 04-16-2023 Patient encounter procedure Dallas Reed MD Work Phone: [facility] [place] Comment on above: Primary hypertension (Primary Dx); S/P AAA repair Start: 04-08-2023 Non-patient / Non-visit Dr. Ilana Reed Work Phone: [facility] Start: 04-07-2023 Non-patient / Non-visit Dr. Ilana Reed Work Phone: [facility] Start: 04-07-2023 End: 04-08-2023 Evaluation and management of inpatient Dr. Dallas Reed Work Phone: [facility]Pro[facility] Work Phone: Start: 04-01-2023 End: 04-01-2023 Non-patient / Non-visit Dr. Dallas Reed Work Phone: [facility] Work Phone: Start: 03-05-2023 End: 03-05-[address] Dallas Reed Work Phone: [facility] Work Phone: Start: 03-04-2023 End: 03-04-2023 Patient encounter procedure Dallas Reed MD Work Phone: [facility] [place] Comment on above: Primary hypertension (Primary Dx); Abdominal aortic aneurysm (AAA) without rupture, unspecified part (HCC) Start: 02-25-2023 End: 02-25-[address] Dallas Reed Work Phone: [facility] Work Phone: Start: 02-23-[address] Dallas Reed Work Phone: [facility] Start: 02-23-2023 End: 02-23-[address] Dallas Reed Work Phone: [facility] Work Phone: Start: 02-01-2023 End: 02-01-2023 Office outpatient visit 25 minutes Aubrie Gomez PA-C Work Phone: [facility] Comment on above: Acute maxillary sinu sitis, recurrence not specified (Primary Dx); Acute otitis media, right Start: 01-19-2023 Telephone encounter Lisa Rodriguez MD Work Phone: Gastroenterology [place] Comment on above: Medication Authoriza tion Start: 01-19-2023 Non-patient / Non-visit Dr. Ilana Reed Work Phone: [facility] Start: 01-19-2023 End: 01-19-[address] Dallas Reed Work Phone: [facility] Work Phone: Start: 01-19-2023 End: 01-19-[address] Dallas Reed Work Phone: [facility]-Cardiovascular Services Start: 01-18-2023 Orders Only [facility] Start: 01-15-2023 End: 01-15-2023 Subsequent hospital visit by physician Lisa Rodriguez MD Work Phone: Ambulatory Surgery Comment on above: Diarrhea, unspecifie d type [R19.7] Start: 01-13-2023 ambulatory Lisa Rodriguez MD Work Phone: Ambulatory Surgery Start: 01-07-2023 End: 01-07-2023 Patient encounter procedure Lisa Rodriguez MD Work Phone: [facility] Comment on above: Diarrhea, unspecifie d type Start: 12-30-2022 End: 12-30-2022 Patient encounter procedure Dallas Reed MD Work Phone: [facility] [place] Comment on above: Diarrhea, unspecifie d type (Primary Dx); Chronic diastolic CHF (congestive heart failure) (HCC); Abdominal aortic aneurysm (AAA) without rupture, unspecified part (HCC) Start: 07-03-2022 End: 07-03-2022 Patient encounter procedure Gavin Rivero X RAY DEVELOPER.PRODUCT PROMOTER RETAIL PET Work Phone: [place] [facility] Comment on above: Loose stools (Primar y Dx) Start: 05-26-2022 Refill Dallas jaramillo MD Work Phone: [facility] [place] Comment on above: Refill Request Start: 03-11-2022 Refill Dallas jaramillo MD Work Phone: [facility] [place] Comment on above: Refill Request Start: 02-18-2022 Telephone encounter Elsie wallace X RAY DEVELOPER.PRODUCT PROMOTER RETAIL PET Work Phone: [facility] Comment on above: Results Start: 02-17-2022 End: 02-17-2022 Patient encounter procedure Nona Haider VAZQUEZ Work Phone: [place] [facility] Comment on above: Cough (Primary Dx); Acute upper respiratory infection, unspecified Start: 02-10-2022 End: 02-10-2022 Nursing evaluation of patient and report Mi Nurse Work Phone: Family [facility] [place] Comment on above: BENIGN HYPERTENSION (Primary Dx) Start: 02-09-2022 ambulatory Denver Elizalde RN [facility] Comment on above: Community Monitoring Outreach (CHF/ CKD Telephonic Outreach) Start: 02-06-2022 ambulatory Denver Elizalde RN [facility] Comment on above: Community Monitoring Outreach (CHF/ CKD CDM Outreach) Start: 01-13-2022 End: 01-13-2022 Patient encounter procedure Dallas Reed MD Work Phone: [facility] [place] Comment on above: Stage 3a chronic kid james disease (HCC) (Primary Dx); Chronic diastolic CHF (congestive heart failure) (HCC); Abdominal aortic aneurysm (AAA) without rupture (HCC); BENIGN HYPERTENSION; Other hyperlipidemia Start: 01-12-2022 Non-patient / Non-visit Dr. Ilana Reed Work Phone: [facility] Start: 01-12-2022 End: 01-12-[address] Dallas Reed Work Phone: [facility]Cardi[facility] Services Start: 12-08-2021 ambulatory Denver Elizalde RN Am [facility] Management Comment on above: Community Monitoring Outreach (CHF / CKD CDM Outreach ) Start: 11-12-2021 End: 11-12-[address] Dallas Reed Work Phone: [facility] Start: 07-19-2019 End: 07-19-2019 Subsequent hospital visit by physician Yariel Blas Work Phone: [facility] General Surgery Comment on above: Pain in right hip Start: 03-10-2018 Ambulatory MOODY MONTES Facility :[facility] Start: 01-14-2018 End: 01-14-2018 Ambulatory IM[facility] Facility:[facility] Start: 01-08-[address] Dallas Reed Work Phone: [facility] Start: 09-09-2017 End: 09-09-2017 Ambulatory [facility] Facility:[facility] Start: 01-09-2015 End: 03-15-2018 Patient encounter status Darya Borden GEORGE Work Phone: [facility] Procedures Date Procedure Procedure Detail Performing Clinician Start: 05-22-2025 Cardiovascular stres s test using pharmacologic stress agent Dr. Dallas Reed MD Work Phone: Start: 05-22-2025 Plain chest X-ray Dr. Aga Reed MD Work Phone: Start: 05-22-[address] Dallas Reed MD Work Phone: Start: 05-21-2025 Urnls dip stick/tabl et reagent auto microscopy Dr. Dallas Reed MD Work Phone: Start: 05-21-2025 Serum inorganic phos phate measurement Dr. Dallas Reed MD Work Phone: Start: 05-21-2025 Plain chest X-ray Dr. Aga [...] MD Work Phone: Start: 11-28-2024 Antibody screen RAMON SIMENTAL Comment on above: Order Comment: Speci men Type: BLOOD SPECIMENOrdering Facility: [facility] Address: [address] [place] [address] Performed By: #### T SCR ####CC [facility] BLOOD BANKCLIA [id number] [address] [place] Start: 11-28-2024 Urnls dip stick/tabl et reagent auto microscopy Dr. Dallas Reed MD Work Phone: Start: 11-28-2024 Computed tomography of abdomen and pelvis with intravenous contrast Dr. Dallas Reed MD Work Phone: Start: 11-28-[address] Dallas Reed MD Work Phone: Start: 11-28-2024 Ct abdomen & pelvis w/contrast material Darya Borden APRN.PRODUCT PROMOTER RETAIL PET Work Phone: Start: 11-27-2024 Urnls dip stick/tabl et rgnt auto w/o microscopy Darya Borden APRN.PRODUCT PROMOTER RETAIL PET Work Phone: Start: 09-07-2024 Adult depression screening assessment Darya Borden APRN.PRODUCT PROMOTER RETAIL PET Work Phone: Start: 02-09-2024 Radex shoulder compl [...] Author Start: 03-16-2028 Diabetes Screening Diabetes Screening [facility] Start: 12-02-2027 Diabetes Screening Diabetes Screening [facility] Start: 11-30-2027 Diabetes Screening Diabetes Screening [facility] Start: 11-29-2027 Diabetes Screening Diabetes Screening [facility] Start: 11-28-2027 Diabetes Screening Diabetes Screening [facility] Start: 08-04-2027 Diabetes Screening Diabetes Screening [facility] Start: 05-31-2027 Diabetes Screening Diabetes Screening [facility] Start: 08-30-2026 Diabetes Screening Diabetes Screening [facility] Start: 03-19-2026 Influenza vaccination Influenza Vaccine (#1) [place] Donnell pichardo Comment on above: Postponed from 05/21/2025 (Declined at t his time) Start: 03-16-2026 Creatinine measurement Creatinine Level [facility] Start: 03-16-2026 Potassium measurement Potassium Level [facility] Start: 03-12-2026 Thyroid stimulating hormone measurement TSH Level [facility] Start: 02-04-2026 DIABETES SCREEN DIABETES SCREEN [facility] Start: 02-04-2026 Diabetes Screening Diabetes Screening [facility] Start: 09-12-2025 End: 09-12-2025 Patient encounter procedure 09/12/2025 8:40 AM EST Office Visit [facility] [address] [place] [address] Dallas Reed MD [address] [place] [address] medicare wellness 6 months [facility] Comment on above: medicare wellness 6 months Start: 09-07-2025 Anxiety Screening Anxiety Screening [facility] Start: 09-07-2025 Depression Screening Depression Screening [facility] Start: 09-07-2025 Medicare Annual Wellness Visit Medicare Annual Wellness Visit [facility] Start: 09-07-2025 RSV Vaccine (1 - 1-dose 75+ series) RSV Vaccine (1 - 1-dose 75+ series) [facility] Comment on above: Postponed from 01/03/2015 (Declined at t his time) Start: 09-07-2025 Shingrix Vaccine (2 of 3) Shingrix Vaccine (2 of 3) [facility] Comment on above: Postponed from 10/13/2014 (Declined at t his time) Start: 09-07-2025 Urine microalbumin profile DTaP,Tdap,Td Vaccine (1 - Tdap) [facility] Comment on above: Postponed from 07/08/2005 (Declined at t his time) Start: 08-20-2025 End: 03-19-2026 CT Abdomen and Pelvis W contrast IV CTA abdomen pelvis angiogram w and/or wo IV contrast 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 Expected: 08/20/2025, Expires: 03/19/2026 [facility]: Comment on above: Expected: 08/20/2025, Expires: Start: 07-17-2025 Covid-19 Vaccine () Covid-19 Vaccine () [facility] Comment on above: Postponed from 05/21/2024 (Declined at t his time) Start: 07-17-2025 DIABETES SCREEN DIABETES SCREEN [facility] Start: 07-02-2025 Catheterization of left heart [facility] Start: 06-11-2025 End: 06-11-2025 Patient encounter procedure 06/11/2025 8:40 AM EDT Office Visit [facility] [place] [address] [place] [address] Darya Borden, X RAY DEVELOPER[employer] [address] [place] [address] follow up 4 weeks [facility] [place] Comment on above: follow up 4 weeks Start: 06-05-2025 End: 06-05-2025 Evaluation of diagnostic study results [facility] Start: 05-24-2025 End: 05-24-2025 Patient encounter procedure 05/24/2025 2:20 PM EDT Office Visit [facility] [place] [address] [place] [address] Dallas Reed MD [address] [place] [address] Discharged [facility] 05/22/25 - DALTON, exacerbation of heart failure [facility] [place] Comment on above: Discharged [facility] 05/22/25 - DALTON, exacerbatio n of heart failure Start: 05-22-2025 Patient discharge [facility] Start: 05-22-2025 [facility] Start: 05-22-2025 Chest 1 View (Portable) Chest 1 View (Portable) [facility] Start: 05-22-2025 XR Chest Single view [facility] Start: 05-21-2025 Influenza vaccination [facility] Start: 05-21-2025 Referral to skin diver [facility] Start: 05-21-2025 Following clinical pathway protocol [facility] Start: 05-21-2025 Assessment of risk of venous thromboembolism [facility] Start: 05-21-2025 Catheterization of vein [facility] Start: 05-21-2025 Incentive spirometry [facility] Start: 05-21-2025 Insertion of catheter into peripheral vein [facility] Start: 05-21-2025 Measuring intake and output [facility] Start: 05-21-2025 Providing care according to standard [facility] Start: 05-21-2025 Provision of activity privileges [facility] Start: 05-21-2025 Referral for physical therapy [facility] Start: 05-21-2025 Referral to make up man [facility] Start: 05-21-2025 Referral to service [facility] Start: 05-21-2025 [facility] Start: 05-21-2025 Urinalysis complete panel - Urine [facility] Start: 05-21-2025 Verification routine [facility] Start: 05-21-2025 Admission procedure [facility] Start: 05-21-2025 Hospital admission, emergency, from emergency room, medical nature [facility] Start: 05-21-2025 T4 free measurement [facility] Start: 05-21-2025 [facility] Start: 05-18-2025 End: 08-17-2025 Cobalamin (Vitamin B12) [Mass/volume] in Serum or Plasma [facility] Comment on above: Expected: 05/18/2025, Expires: Start: 05-18-2025 End: 08-17-2025 Ferritin [Mass/volume] in Serum or Plasma [facility] Comment on above: Expected: 05/18/2025, Expires: Start: 05-18-2025 End: 08-17-2025 Folate [Mass/volume] in Serum or Plasma [facility] Comment on above: Expected: 05/18/2025, Expires: Start: 05-18-2025 End: 08-17-2025 Iron and Iron binding capacity panel - Serum or Plasma [facility] Comment on above: Expected: 05/18/2025, Expires: Start: 05-18-2025 End: 08-17-2025 Thyrotropin [Units/volume] in Serum or Plasma [facility] Work Phone: Comment on above: Expected: 05/18/2025, Expires: Start: 03-19-2025 Influenza vaccination Influenza Vaccine (#1) [facility] Comment on above: Postponed from 05/21/2024 (Declined at t his time) Start: 03-16-2025 End: 03-16-2025 Patient encounter procedure 03/16/2025 11:00 AM EDT Appointment [facility] [address] [place] [address] [facility] Start: 03-12-2025 End: 06-11-2025 Thyrotropin [Units/volume] in Serum or Plasma [facility] Work Phone: Comment on above: Expected: 03/12/2025, Expires: Start: 03-12-2025 End: 06-11-2025 Thyroxine (T4) free [Mass/volume] in Serum or Plasma [facility] Comment on above: Expected: 03/12/2025, Expires: Start: 03-12-2025 End: 03-12-2025 Patient encounter procedure 03/12/2025 8:40 AM EDT Office Visit [facility] [place] [address] [place], [place] [id number] Darya Borden, X RAY DEVELOPER.[employer] [address] [place] [address] follow up 6 months [facility] [place] Comment on above: follow up 6 months Start: 03-01-2025 End: 03-01-2026 Guidance for embolization of Vessels IR Embolization 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 Expected: 03/01/2025, Expires: 03/01/2026 [facility] [employer] Work Phone: Comment on above: Expected: 03/01/2025, Expires: Start: 02-14-2025 Elevation of head of bed [facility] Start: 02-14-2025 Patient education [facility] Start: 02-14-2025 End: 02-14-2025 Taking patient vital signs [facility] Start: 02-14-2025 Wound care [facility] Start: 02-14-2025 End: 02-14-2025 [facility] Start: 02-14-2025 Bedrest [facility] Start: 02-14-2025 End: 02-14-2025 Notification of physician [facility] Start: 02-14-2025 Patient discharge [facility] Start: 02-14-2025 Provision of activity privileges [facility] Start: 02-14-2025 End: 02-14-2025 Pulse taking [facility] Start: 01-13-2025 DIABETES SCREEN DIABETES SCREEN [facility] Start: 01-12-2025 [facility] Start: 12-22-2024 End: 12-22-2024 ambulatory 12/22/2024 9:15 AM EDT OT/PT/Speech Visit [facility] [address] [place] [address] Ramon Lee, PT [address] [place] [address] S00.03XD (ICD-10-CM) - Contusion of scalp, subsequent encounter [facility] Comment on above: S00.03XD (ICD-10-CM) - Contusion of scal p, subsequent encounter Start: 12-19-2024 End: 12-19-2024 ambulatory 12/19/2024 9:15 AM EDT OT/PT/Speech Visit [facility] [address] [place] [address] Ramon Lee, PT [address] [place] [address] S00.03XD (ICD-10-CM) - Contusion of scalp, subsequent encounter [facility] Comment on above: S00.03XD (ICD-10-CM) - Contusion of scal p, subsequent encounter Start: 12-15-2024 End: 12-15-2024 ambulatory 12/15/2024 9:15 AM EDT OT/PT/Speech Visit [facility] [address] [place] [facility] [place] [place] [address] Ramon Lee, PT [address] [place] [address] S00.03XD (ICD-10-CM) - Contusion of scalp, subsequent encounter [facility] Comment on above: S00.03XD (ICD-10-CM) - Contusion of scal p, subsequent encounter Start: 12-12-2024 End: 12-12-2024 ambulatory 12/12/2024 9:15 AM EDT OT/PT/Speech Visit [facility] [address] [place] [facility] [place] [place] [address] Ramon Lee, PT [address] [place] [address] S00.03XD (ICD-10-CM) - Contusion of scalp, subsequent encounter [facility] Comment on above: S00.03XD (ICD-10-CM) - Contusion of scal p, subsequent encounter Start: 12-08-2024 End: 12-08-2024 Patient encounter procedure 12/08/2024 11:40 AM EDT Office Visit [facility] [place] [address] [place] [address] Dallas Reed MD [address] [place] [address] hospital discharge follow up. needs to see PCP or WEN in 7 days. [facility] [place] Comment on above: hospital discharge follow up. needs to s ee PCP or WEN in 7 days. Start: 12-08-2024 End: 12-08-2024 ambulatory 12/08/2024 9:15 AM EDT OT/PT/Speech Visit [facility] [address] [facility], [place] [address] Ramon Lee, PT [address] [facility] [place] [address] S00.03XD (ICD-10-CM) - Contusion of scalp, subsequent encounter [facility] Comment on above: S00.03XD (ICD-10-CM) - Contusion of scal p, subsequent encounter Start: 12-07-2024 End: 03-08-2025 Thyrotropin [Units/volume] in Serum or Plasma THYROID STIMULATING HORMONE Lab Routine Subclinical hypothyroidism Expected: 12/07/2024 (Approximate), Expires: 03/08/2025 [facility] Work Phone: Comment on above: Expected: 12/07/2024 (Approximate), Expi res: 03/08/2025 Start: 12-06-2024 End: 12-06-2024 ambulatory 12/06/2024 9:15 AM EDT OT/PT/Speech Visit [facility] [address] [place] [address] Ramon Lee, PT [address] [place], [place] [address] S00.03XD (ICD-10-CM) - Contusion of scalp, subsequent encounter [facility] Comment on above: S00.03XD (ICD-10-CM) - Contusion of scal p, subsequent encounter Start: 11-29-2024 End: 11-29-2024 ambulatory 11/29/2024 7:45 AM EDT OT/PT/Speech Visit [facility] [address] [place] [address] Ramon Lee, PT [address] [place], [place] [id number] S00.03XD (ICD-10-CM) - Contusion of scalp, subsequent encounter [facility] Comment on above: S00.03XD (ICD-10-CM) - Contusion of scal p, subsequent encounter Start: 11-28-2024 [facility] Start: 11-28-2024 End: 11-28-2024 Patient encounter procedure Cat Scan Comment on above: LLQ abdominal pain [R10.32] Start: 11-24-2024 End: 11-24-2024 ambulatory 11/24/2024 7:45 AM EST OT/PT/Speech Visit [facility] [address] [place] [address] Ramon Lee, PT [address] [place], [place] [address] S00.03XD (ICD-10-CM) - Contusion of scalp, subsequent encounter [facility] Comment on above: S00.03XD (ICD-10-CM) - Contusion of scal p, subsequent encounter Start: 11-21-2024 End: 11-21-2024 ambulatory 11/21/2024 10:45 AM EST OT/PT/Speech Visit [facility] [address] [place] [address] Ramon Lee, PT [address] [place] [address] x: Contusion of scalp, subsequent encounter [S00.03XD]; Fall, subsequent encounter [W19.XXXD]; Proximal leg weakness [R29.898] [facility] Comment on above: x: Contusion of scalp, subsequent encoun ter [S00.03XD]; Fall, subsequent encounter [W19.XXXD]; Proximal leg weakness [R29.898] Start: 11-09-2024 End: 11-09-2024 Patient encounter procedure 11/09/2024 2:00 PM EST Office Visit [facility] [place] [address] [place], [place] [id number] Dallas Reed MD [address] [place] [address] express care follow up-hit head [facility] [place] Comment on above: express care follow up-hit head Start: 09-20-2024 Advance Directive Discussion Advance Directive Discussion [facility] Start: 09-07-2024 End: 12-07-2024 Thyroxine (T4) free [Mass/volume] in Serum or Plasma [facility] Work Phone: Comment on above: Expected: 09/07/2024, Expires: Start: 09-07-2024 End: 12-07-2024 Triiodothyronine (T3) [Mass/volume] in Serum or Plasma [facility] Comment on above: Expected: 09/07/2024, Expires: Start: 09-07-2024 End: 09-07-2024 Patient encounter procedure 09/07/2024 10:00 AM EST Office Visit [facility] [place] [address] [place] [address] Darya Borden, X RAY DEVELOPER.[employer] [address] [place], [place] [id number] Medicare Wellness ; routine follow up [facility] [place] Comment on above: Medicare Wellness ; routine follow up Start: 08-31-2024 [facility] Start: 08-31-2024 Anesthesia hernia repair upper abdomen nos ANES HRNA RPR UPR ABD NOS [facility] Start: 08-31-2024 RPR AA HRN 1ST < 3 CM RDC RPR AA HRN 1ST < 3 CM RDC [facility] Start: 08-31-2024 Patient discharge [facility] Start: 08-14-2024 End: 08-14-2024 Patient encounter procedure 08/14/2024 12:00 PM EST Office Visit [facility] [place] [address] [place] [address] Dallas Reed MD [address] [place], [place] [id number] Medicare Wellness ; routine follow up [facility] Comment on above: Medicare Wellness ; routine follow up Start: 08-10-2024 Covid-19 Vaccine (#1) Covid-19 Vaccine (#1) [facility] Comment on above: Postponed from 1940 (Declined at t his time) Start: 08-10-2024 Covid-19 Vaccine ( season) Covid-19 Vaccine ( - season) [facility] Comment on above: Postponed from 05/21/2023 (Declined at t his time) Start: 08-10-2024 RSV Vaccine (1 - 1-dose 60+ series) RSV Vaccine (1 - 1-dose 60+ series) [facility] Comment on above: Postponed from 2000 (Declined at t his time) Start: 08-10-2024 RSV Vaccine (1 - 1-dose 75+ series) RSV Vaccine (1 - 1-dose 75+ series) [facility] Comment on above: Postponed from 01/03/2015 (Declined at t his time) Start: 08-10-2024 Shingrix Vaccine (2 of 3) Shingrix Vaccine (2 of 3) [facility] Comment on above: Postponed from 10/13/2014 (Declined at t his time) Start: 08-10-2024 Urine microalbumin profile DTaP,Tdap,Td Vaccine (1 - Tdap) [facility] Comment on above: Postponed from 07/08/2005 (Declined at t his time) Start: 07-19-2024 End: 10-18-2024 CBC panel - Blood by Automated count COMPLETE BLOOD COUNT Lab Routine Thrombocytopenia (HCC) Expected: 07/19/2024, Expires: 10/18/2024 [facility] Work Phone: Comment on above: Expected: 07/19/2024, Expires: Start: 07-19-2024 End: 10-18-2024 Comprehensive metabolic 2000 panel - Serum or Plasma COMPREHENSIVE METABOLIC PANEL Lab Routine Stage 3b chronic kidney disease (HCC) Expected: 07/19/2024, Expires: 10/18/2024 [facility] Comment on above: Expected: 07/19/2024, Expires: Start: 07-19-2024 End: 10-18-2024 Lipid 1996 panel - Serum or Plasma LIPID PANEL BASIC Lab Routine Mixed hyperlipidemia Expected: 07/19/2024, Expires: 10/18/2024 [facility] Comment on above: Expected: 07/19/2024, Expires: Start: 07-19-2024 End: 10-18-2024 Thyrotropin [Units/volume] in Serum or Plasma THYROID STIMULATING HORMONE Lab Routine Abnormal TSH Mixed hyperlipidemia Expected: 07/19/2024, Expires: 10/18/2024 [facility] Comment on above: Expected: 07/19/2024, Expires: Start: 07-19-2024 End: 07-19-2024 ambulatory 07/19/2024 7:30 AM EDT Results Only [facility] [address] [facility] [place] [address] [facility] Start: 07-02-2024 DIABETES SCREEN DIABETES SCREEN [facility] Start: 05-23-2024 End: 08-22-2024 CBC W Auto Differential panel - Blood COMPLETE BLOOD COUNT AND DIFFERENTIAL Lab Routine BENIGN HYPERTENSION Weight loss Fatigue, unspecified type Expected: 05/23/2024, Expires: 08/22/2024 [facility] Work Phone: Comment on above: Expected: 05/23/2024, Expires: 4 Start: 05-23-2024 End: 08-22-2024 Cobalamin (Vitamin B12) [Mass/volume] in Serum or Plasma VITAMIN B12 Lab Routine BENIGN HYPERTENSION Weight loss Fatigue, unspecified type History of anemia Expected: 05/23/2024, Expires: 08/22/2024 [facility] Comment on above: Expected: 05/23/2024, Expires: Start: 05-23-2024 End: 08-22-2024 Comprehensive metabolic 2000 panel - Serum or Plasma COMPREHENSIVE METABOLIC PANEL Lab Routine BENIGN HYPERTENSION Weight loss Fatigue, unspecified type Expected: 05/23/2024, Expires: 08/22/2024 [facility] Comment on above: Expected: 05/23/2024, Expires: 4 Start: 05-23-2024 End: 08-22-2024 Ferritin [Mass/volume] in Serum or Plasma FERRITIN Lab Routine BENIGN HYPERTENSION Weight loss Fatigue, unspecified type History of anemia Expected: 05/23/2024, Expires: 08/22/2024 [facility] Comment on above: Expected: 05/23/2024, Expires: Start: 05-23-2024 End: 08-22-2024 Iron and Iron binding capacity panel - Serum or Plasma IRON AND TIBC Lab Routine BENIGN HYPERTENSION Weight loss Fatigue, unspecified type History of anemia Expected: 05/23/2024, Expires: 08/22/2024 [facility] Comment on above: Expected: 05/23/2024, Expires: Start: 05-23-2024 End: 08-22-2024 Thyrotropin [Units/volume] in Serum or Plasma THYROID STIMULATING HORMONE Lab Routine BENIGN HYPERTENSION Fatigue, unspecified type Expected: 05/23/2024, Expires: 08/22/2024 [facility] Comment on above: Expected: 05/23/2024, Expires: Start: 05-23-2024 End: 08-22-2024 Urinalysis complete panel - Urine URINALYSIS, WITH MICROSCOPIC Lab Routine Weight loss Fatigue, unspecified type Expected: 05/23/2024, Expires: 08/22/2024 [facility] Comment on above: Expected: 05/23/2024, Expires: Start: 05-21-2024 Covid-19 Vaccine ( season) Covid-19 Vaccine ( season) [facility] Start: 05-21-2024 Covid-19 Vaccine ( season) Covid-19 Vaccine ( season) [facility] Start: 05-21-2024 Influenza vaccination [facility] Start: 05-15-2024 End: 05-15-2024 Patient encounter procedure 05/15/2024 11:00 AM EDT Office Visit Orthopaedics [address] [place] [address] Izzy Guadalupe PA-C [address] [place] [address] Acute pain of both shoulders [M25.511, M25.512] [facility]ics Comment on above: Acute pain of both shoulders [M25.511, M 25.512] Start: 01-17-2024 End: 01-17-2024 Patient encounter procedure [facility] Comment on above: Endoleak aortic graft Start: 12-27-2023 Following clinical pathway protocol [facility] Start: 10-16-2023 Influenza vaccination [facility] Comment on above: Postponed from 05/21/2023 (Declined at t his time) Start: 09-20-2023 Advance Directive Discussion Advance Directive Discussion [facility] Start: 09-20-2023 Behavioral Health Screening Behavioral Health Screening [facility] Start: 09-20-2023 Depression Assessment Depression Assessment [facility] Start: 07-15-2023 COVID-19 VACCINE (#1) COVID-19 VACCINE (#1) [facility] Comment on above: Postponed from 1940 (Declined at t his time) Start: 07-15-2023 SHINGRIX VACCINE (2 of 3) SHINGRIX VACCINE (2 of 3) [facility] Comment on above: Postponed from 10/13/2014 (Declined at t his time) Start: 07-15-2023 Urine microalbumin profile [facility] Comment on above: Postponed from 07/08/2005 (Declined at t his time) Start: 05-26-2023 Following clinical pathway protocol [facility] Start: 05-21-2023 Influenza vaccination [facility] Start: 04-08-2023 Patient discharge [facility] Start: 04-08-2023 Urinary bladder residual urine study [facility] Start: 04-08-2023 [facility] Start: 04-08-2023 Removal of urinary catheter [facility] Start: 04-07-2023 Oxygen therapy [facility] Start: 04-07-2023 Following clinical pathway protocol [facility] Start: 04-07-2023 End: 04-07-2023 Bedrest [facility] Start: 04-07-2023 Elevation of head of bed [facility] Start: 04-07-2023 Incentive spirometry [facility] Start: 04-07-2023 Insertion of catheter into artery [facility] Start: 04-07-2023 Measuring intake and output [facility] Start: 04-07-2023 Neurovascular assessment [facility] Start: 04-07-2023 Nil by mouth [facility] Start: 04-07-2023 Notification of physician [facility] Start: 04-07-2023 Patient education [facility] Start: 04-07-2023 Tobacco use cessation education [facility] Start: 04-07-2023 Vital signs measurements [facility] Start: 04-07-2023 [facility] Start: 04-07-2023 [facility] Start: 04-07-2023 Admission procedure [facility] Start: 09-20-2022 ADVANCE DIRECTIVE DISCUSSION ADVANCE DIRECTIVE DISCUSSION [facility] Start: 09-20-2022 DEPRESSION ASSESSMENT DEPRESSION ASSESSMENT [facility] Start: 07-15-2022 End: 09-14-2022 CBC panel - Blood by Automated count CBC Lab Routine Stage 3a chronic kidney disease (HCC) Expected: 07/15/2022, Expires: 09/14/2022 [facility] Work Phone: Comment on above: Expected: 07/15/2022, Expires: 2 Start: 07-15-2022 End: 09-14-2022 Comprehensive metabolic 2000 panel - Serum or Plasma COMP METABOLIC PANEL Lab Routine Chronic diastolic CHF (congestive heart failure) (HCC) Expected: 07/15/2022, Expires: 09/14/2022 [facility] Work Phone: Comment on above: Expected: 07/15/2022, Expires: 2 Start: 07-15-2022 End: 09-14-2022 LIPID PANEL BASIC LIPID PANEL BASIC Lab Routine Other hyperlipidemia Expected: 07/15/2022, Expires: 09/14/2022 [facility] Work Phone: Comment on above: Expected: 07/15/2022, Expires: 2 Start: 07-09-2022 COVID-19 VACCINE (#1) COVID-19 VACCINE (#1) [facility] Comment on above: Postponed from 01/03/1945 (Declined at t his time) Postponed from 07/05 (Declined at this time) Start: 07-09-2022 COVID-19 VACCINE (1) COVID-19 VACCINE (1) [facility] Comment on above: Postponed from 01/03/1945 (Declined at t his time) Start: 07-09-2022 SHINGRIX VACCINE (2 of 3) SHINGRIX VACCINE (2 of 3) [facility] Comment on above: Postponed from 10/13/2014 (Declined at t his time) Start: 07-09-2022 Urine microalbumin profile DTAP,TDAP,TD (1 - Tdap) [facility] Comment on above: Postponed from 07/08/2005 (Declined at t his time) Start: 05-21-2022 Influenza vaccination [facility] Start: 03-19-2022 Influenza vaccination INFLUENZA (#1) [facility] Comment on above: Postponed from 05/21/2021 (Declined at t his time) Start: 02-17-2022 End: 03-03-2022 Influenza virus A and B RNA and SARS-CoV-2 (COVID-19) N gene panel - Respiratory specimen by ELIZABETH with probe detection COVID WITH FLUA+B, ROUTINE Microbiology Routine Cough Acute upper respiratory infection, unspecified Expected: 02/17/2022, Expires: 03/03/2022 [facility] Work Phone: Comment on above: Expected: 02/17/2022, Expires: 2 Start: 01-13-2022 End: 03-15-2022 Basic metabolic 2000 panel - Serum or Plasma [facility] Work Phone: Comment on above: Expected: 01/13/2022, Expires: 2 Start: 09-20-2021 ADVANCE DIRECTIVE DISCUSSION ADVANCE DIRECTIVE DISCUSSION [facility] Start: 09-20-2021 DEPRESSION ASSESSMENT DEPRESSION ASSESSMENT [facility] Start: 07-19-2020 Creatinine measurement Creatinine Level [facility] Start: 07-19-2020 Potassium measurement Potassium Level [facility] Start: 07-04-2019 Annual Wellness Visit (AWV) [facility] Start: 05-21-2019 Influenza vaccination Flu vaccine (#1) [facility] [place] Start: 01-03-2015 RSV Immunization for Adults (1 - 1-dose 75+ series) RSV Immunization for Adults (1 - 1-dose 75+ series) [facility] Start: 01-03-2015 RSV Vaccine (1 - 1-dose 75+ series) RSV Vaccine (1 - 1-dose 75+ series) [facility] Start: 10-13-2014 Shingles Vaccine (2 of 3) Shingles Vaccine (2 of 3) [place] Start: 10-13-2014 Shingrix Vaccine (2 of 3) Shingrix Vaccine (2 of 3) [facility] Start: 10-13-2014 Zoster Vaccines (2 of 3) Zoster Vaccines (2 of 3) [facility] Start: 07-08-2005 DTaP/Tdap/Td Vaccines (1 - Tdap) DTaP/Tdap/Td Vaccines (1 - Tdap) [facility] Start: 07-08-2005 Urine microalbumin profile DTaP,Tdap,Td Vaccine (1 - Tdap) [facility] Start: 01-03-1959 DTaP/Tdap/Td vaccine (1 - Tdap) DTaP/Tdap/Td vaccine (1 - Tdap) [place] Start: 01-03-1958 Anxiety Screening Anxiety Screening [facility] Start: 01-03-1958 Depression Screening Depression Screening [facility] Start: 1952 Depression Screening Depression Screening [facility] Start: 1940 Creatinine monitoring Creatinine monitoring [place], [place] Start: 1940 Echocardiography Echocardiogram [facility] Start: 1940 Lipid panel Lipid Panel [facility] Start: 1940 Medicare Annual Wellness (AWV) Medicare Annual Wellness (AWV) [facility] Start: 1940 Potassium monitoring Potassium monitoring [place], [place] End: 07-19-2019 Anaerobic Culture Anaerobic Culture Microbiology Routine Once for 1 Occurrences starting 07/19/2019 until 07/19/2019 [place], [place] Comment on above: Once for 1 Occurrences starting 07/19/20 19 until 07/19/2019 Anaerobic Culture Anaerobic Cult ure Microbiology Routine 07/19/2019 9:00 AM EDT [place], [place] Bacteria identified in Urine by Culture BACTERIAL CULTURE, URINE Microbiology Routine Left lower quadrant abdominal pain 11/27/2024 11:46 AM EDT [facility] Basic metabolic 2008 panel with ionized calcium - Serum or Plasma [facility] Basic metabolic 2007 panel with ionized calcium - Serum or Plasma [facility] Basic metabolic 2007 panel with ionized calcium - Serum or Plasma [facility] Blood chemistry [facility] End: 07-19-2019 Body Fluid Culture Body Fluid Culture Microbiology Routine Once for 1 Occurrences starting 07/19/2019 until 07/19/2019 [facility] Comment on above: Once for 1 Occurrences starting 07/19/20 19 until 07/19/2019 Body Fluid Culture Body Fluid Cu lture Microbiology Routine 07/19/2019 9:00 AM EDT [facility] Calprotectin [Mass/m ass] in Stool CALPROTECTIN,FECAL Lab Routine Diarrhea, unspecified type Ordered: 12/30/2022 [facility] Work Phone: Comment on above: Ordered: 12/30/2022 CBC W Auto Different ial panel - Blood [facility] CBC W Auto Different ial panel - [facility] Cholesterol [Mass/vo lume] in Serum or Plasma [facility] Cholesterol in HDL [Mass/volume] in Serum or Plasma [facility] Clostridioides diffi cile toxin genes [Presence] in Stool by ELIZABETH with probe detection C. DIFFICILE PCR Lab Routine Loose stools Ordered: 07/03/2022 [facility] Work Phone: Comment on above: Ordered: 07/03/2022 Clostridioides diffi cile toxin genes [Presence] in Stool by ELIZABETH with probe detection C. DIFFICILE PCR Lab Routine Diarrhea, unspecified type Ordered: 12/30/2022 [facility] Work Phone: Comment on above: Ordered: 12/30/2022 End: 01-08-2024 COLONOSCOPY DIAGNOSTIC COLONOSCOPY DIAGNOSTIC Endoscopy Routine Diarrhea, unspecified type 1 Occurrences starting 01/07/2023 until 01/08/2024 [facility] Work Phone: Comment on above: 1 Occurrences starting 01/07/2023 until 01/08/2024 CT Abdomen and Pelvis [facility] CT Abdomen and Pelvis [facility] End: 12-27-2025 CT Abdomen and Pelvis W contrast IV CT ABD/PEL W IVCON Radiology STAT Left lower quadrant abdominal pain 1 Occurrences starting 11/27/2024 until 12/27/2025 [facility] Work Phone: Comment on above: 1 Occurrences starting 11/27/2024 until 12/27/2025 End: 02-03-2025 CTA Abdominal vessels and Pelvis vessels WO and W contrast IV CTA ABD/PEL WO/W IVCON Radiology Routine Encounter for other preprocedural examination 1 Occurrences starting 01/05/2024 until 02/03/2025 [facility] Work Phone: Comment on above: 1 Occurrences starting 01/05/2024 until 02/03/2025 End: 02-03-2025 CTA Chest vessels WO and W contrast IV CTA CHEST (NONGATED) WO/W IVCON Radiology Routine Encounter for other preprocedural examination 1 Occurrences starting 01/05/2024 until 02/03/2025 [facility] Work Phone: Comment on above: 1 Occurrences starting 01/05/2024 until 02/03/2025 End: 07-19-2019 EKG 12 Lead EKG 12 Lead ECG STAT One Time for 1 Occurrences starting 07/19/2019 until 07/19/2019 [place] Comment on above: One Time for 1 Occurrences starting 06/22 until 07/19/2019 ENTERIC BACTERIAL PA SKYE BY PCR ENTERIC BACTERIAL PANEL BY PCR Lab Routine Loose stools Ordered: 07/03/2022 [facility] Work Phone: Comment on above: Ordered: 07/03/2022 Erythrocyte mean corpuscular volume determination [facility] FECAL LACTOFERRIN/LEUKOCYTES FECAL LACTOFERRIN/LEUKOCYTES Lab Routine Diarrhea, unspecified type Ordered: 12/30/2022 [facility] Work Phone: Comment on above: Ordered: 12/30/2022 Glomerular filtratio n rate/1.73 sq M.predicted [Volume Rate/Area] in Serum, Plasma or Blood by Creatinine-based formula (CKD-EPI) [facility] End: 03-16-2025 Guidance for embolization of Vessels [facility] Work Phone: Comment on above: Once for 1 Occurrences starting 03/16/20 until 03/16/2025 Hematocrit [Volume Fraction] of Blood [facility] Hemoglobin [Mass/vol ume] in Blood [facility] Hemoglobin.robi srivastava alCheryllower [Presence] in Stool by Immunoassay IMMUNOCHEMICAL FECAL OCCULT BLOOD TEST Lab Routine BENIGN HYPERTENSION Weight loss Fatigue, unspecified type Ordered: 05/23/2024 [facility] Comment on above: Ordered: 05/23/2024 Leukocytes [#/volume ] in Blood [facility] Low density lipoprot ein cholesterol measurement [facility] Magnesium measurement [facility] Mean corpuscular hemoglobin concentration determination [facility] Mean corpuscular hemoglobin determination [facility] Natriuretic peptide. B prohormone N-Terminal [Mass/volume] in Serum or Plasma [facility] Neutrophil count [facility] Neutrophil percent differential count [facility] Ova and parasites identified in Unspecified specimen by Light microscopy OVA + PARA MICROSCOPIC Microbiology Routine Loose stools Ordered: 07/03/2022 [facility] Work Phone: Comment on above: Ordered: 07/03/2022 Patient Education [facility] Work Phone: Patient referral [facility] Work Phone: Platelets [#/volume] in Blood [facility] Red blood cell count [facility] Red cell distributio n width determination [facility] T4 free measurement [facility] Thyroid stimulating hormone measurement [facility] Total cholesterol:HD L ratio measurement [facility] Triglycerides measurement [facility] Troponin T.cardiac [Mass/volume] in Serum or Plasma by High sensitivity method [facility] VLDL cholesterol measurement [facility] Immunizations Immunization Date Immunization Notes Care Provider Orlando valenzuela 07-13-2020 influenza (HD-IIV4) vaccine, age 65+ yr, high dose, quadrivalent, PF (FLUZONE HIGH-DOSE) Darya Older [employer]EL[employer] Work Phone: [facility] 07-13-2020 influenza, high dose seasonal, preservative-free Goffglendy Elizalde RN [facility] 07-13-2020 influenza virus vacc ine, unspecified formulation Dallas Reed MD Work Phone: [facility] 07-21-2019 influenza, high dose seasonal, preservative-free Goff Fide RN [facility] Work Phone: 08-10-2018 influenza, high dose seasonal, preservative-free Goff Fide RN [facility] Work Phone: 02-10-2018 pneumococcal conjuga te vaccine, 13 valent Denver Elizalde RN [facility] Work Phone: 07-30-2017 influenza, high dose seasonal, preservative-free Denver Elizalde RN [facility] 07-21-2016 influenza, high dose seasonal, preservative-free Goff Fide RN [facility] 08-20-2015 influenza, high dose seasonal, preservative-free Goff Fide RN [facility] Work Phone: 08-20-2015 influenza, injectabl e, quadrivalent, preservative free Dr. Dallas Reed Work Phone: [facility] 08-20-2015 influenza, seasonal, injectable Dr. Dallas Reed Work Phone: [facility] 08-20-2015 influenza, seasonal, injectable, preservative free Darya Older [employer]EL[employer] Work Phone: [facility] 08-18-2014 zoster vaccine, live Denver Elizalde RN [facility] Work Phone: 07-10-2014 influenza, high dose seasonal, preservative-free Goffglendy Elizalde RN [facility] Work Phone: 07-10-2014 influenza, seasonal, injectable Goff Fide RN [facility] Work Phone: 07-10-2014 pneumococcal polysaccharide vaccine, 23 valent Denver Elizalde RN [facility] Work Phone: 07-15-2010 influenza virus vacc ine, whole virus Denver Elizalde RN [facility] Work Phone: 09-18-2009 novel influenza-H1N1 -09, preservative-free, injectable Denver Elizalde RN [facility] Work Phone: 08-07-2009 influenza virus vacc ine, unspecified formulation Denver Elizalde RN [facility] 08-04-2007 influenza virus vacc ine, unspecified formulation Denver Elizalde RN [facility] Work Phone: 07-26-2006 influenza virus vacc ine, unspecified formulation Denver Elizalde RN [facility] 07-07-2005 tetanus and diphther ia toxoids, adsorbed, preservative free, for adult use (2 Lf of tetanus toxoid and 2 Lf of diphtheria toxoid) Denver Elizalde RN [facility] Work Phone: 06-20-2004 pneumococcal polysaccharide vaccine, 23 valent Denver Elizalde RN [facility] Payers Date Payer Category Payer [facility] [id number] 2024 Self-pay [id number] 2024 Medicare [id number] 2018 Medicare [id number] 2017 Commercial Managed C are - HMO MMO SUPERMED ACCESS [id number] 2012 Private Health Insurance [id number] 2012 Unknown [facility] [id number] 2012-Present [address] [place] [address] Indemnity [id number] 2012 Unknown [id number] .[id number] 2012 Unknown [id number] 2004 Medicare MEDICARE MEDICAR E A AND B [id number] 2004-Present [phone] [address] [address] [place] [address] Medicare [id number] 2004 Medicare [id number] .[id number] 2004 Medicare [id number] Medicare [id number] Unknown [id number] 2.840.1.219840.3.579.2 .462 Unknown [id number] 2.840.1.492091.3.579.2 .462 Unknown [id number] 2.840.1.434730.3.579.2 .462 Unknown [id number] 2.16840.1.270932.3.579.2 .462 Unknown [id number] 2.16.840.1.585204.3.579.2 .462 Unknown [id number] 2.16840.1.193963.3.579.2 .462 Unknown [id number] 2.16840.1.004797.3.579.2 .462 Unknown [id number] 2.16.840.1.507811.3.579.2 .462 Unknown [id number] 2.16.840.1.195494.3.579.2 .462 Unknown [id number] 2.16.840.1.307953.3.579.2 .462 Unknown [id number] 2.16.840.1.690257.3.579.2 .462 Unknown [id number] 2.16.840.1.383263.3.579.2 .462 Unknown [id number] 2.16.840.1.026074.3.579.2 .462 Unknown [id number] 2.840.1.495720.3.579.2 .462 Unknown [id number] 2.16.840.1.266300.3.579.2 .462 Unknown [id number] 2.16.840.1.280687.3.579.2 .462 Unknown [id number] 2.16.840.1.924579.3.579.2 .462 Unknown [id number] 2.16.840.1.474213.3.579.2 .462 Unknown [id number] 2.16.840.1.143496.3.579.2 .462 Unknown [id number] 2.16.840.1.710438.3.579.2 .462 Unknown [id number] 2.16.840.1.794047.3.579.2 .462 Unknown [id number] 2.16.840.1.228439.3.579.2 .462 Unknown [id number] 2.16.840.1.613703.3.579.2 .462 Unknown [id number] 2.16.840.1.778409.3.579.2 .462 Unknown [id number] 2.16.840.1.399549.3.579.2 .462 Unknown [id number] 2.16.840.1.028452.3.579.2 .462 Social History Date Type Detail Facility Start: 07-19-2019 End: 05-21-2025 Tobacco smoking status NHIS Former smoker [facility] Work Phone: Start: 07-19-2019 End: 02-04-2023 Alcohol intake Not Currently [facility] Start: 1940 Sex Assigned At Not on file [place], [place] Start: 09-20-1962 End: 09-20-1964 History of tobacco use Current smoker [facility] Work Phone: Start: 09-20-1962 End: 09-20-1964 History of tobacco use Cigarette Smoker [facility] Work Phone: Start: 02-10-2018 End: 02-04-2023 Cigarettes smoked current (pack per day) - Reported 1 [facility] Start: 02-10-2018 End: 05-23-2024 Tobacco use and exposure Smokeless tobacco non-user [facility] Work Phone: Start: 09-14-2021 End: 05-24-2025 Alcohol intake Current non-drinker of alcohol (finding) [facility] Start: 07-04-2021 History SDOH Alcohol Frequency 1 [facility] Start: 05-31-2020 History SDOH Alcohol Binge 99 [facility] Start: 07-04-2021 History SDOH Social Connections Phone 3 [facility] Start: 07-04-2021 History SDOH Social Connections Get Together 2 [facility] Start: 07-04-2021 History SDOH Social Connections Meetings 98 [facility] Start: 07-04-2021 History SDOH Financial 5 [facility] Start: 07-04-2021 Education 12 [facility] Start: 01-03-2022 End: 07-03-2022 Exposure to SARS-CoV-2 (event) Not sure [facility] Work Phone: Start: 11-12-2021 End: 06-25-2023 Tobacco smoking status NHIS Unknown if ever smoked [facility] Start: 10-13-2016 None [facility] Start: 10-13-2016 Spouse/ Significant Other [facility] Start: 01-20-2021 Cigarettes [facility] Start: 1940 Sex Assigned At Male [facility] Do you belong to any clubs or organizations such as alevism groups, unions, fraternal or athletic groups, or school groups? Yes [facility] Start: 08-21-2012 How often do you attend meetings of the clubs or organizations you belong to? Patient refused [facility] Are you now , , , , never or living with a partner? [facility] How often to you hav e a drink containing alcohol? Never [facility] Do you feel stress - tense, restless, nervous, or anxious, or unable to sleep at night because your mind is troubled all the time - these days [OSQ] Not at all [facility] (I/We) worried wheth er (my/our) food would run out before (I/we) got money to buy more. Never true [facility] In the past 12 month s, was there a time when you were not able to pay the mortgage or rent on time? No [facility] Start: 04-20-2022 End: 11-28-2024 Sex Male (finding) [facility] How hard is it for y ou to pay for the very basics like food, housing, medical care, and heating Not very hard [facility] Start: 09-08-2022 End: 03-19-2025 Alcoholic beverage intake Ex-drinker (finding) [facility] Medical Equipment Procedure Code Equipment Code Equipment Origin al Text Equipment Identifier Dates Repair, hernia, ventral, with mesh insertion ([id number]) Extra-gynaecological surgical mesh, composite-polymer ([id number] FDA Start: 08-31-2024 Evacuation, hematoma SEALANT,FLOSEAL HEMOSTATIC [...] SUTURE,LIGA CLIP SM [id number] FDA Start: 01-20-2021 ([id number]) Abdominal aorta endovascular stent-graft ()[id number] FDA Start: 04-07-2023 Abdominal aorta endovascular stent-graft ()[id number] FDA Start: 04-07-2023 Abdominal aorta endovascular stent-graft ()[id number] FDA Start: 04-07-2023 Femoral vessel s uture implantation set ()[id number] FDA Start: 04-07-2023 Kit Embo Avm Gi x 18 - [id number] Start: 03-16-2025 Coil Embo Embold 20mm 50cm - [id number] Start: 03-16-2025 Coil Embo Embold 22mm 60cm - [id number] Start: 03-16-2025 Device Clsr Mynx manager operations research 6-7fr Grn - [id number] Start: 03-16-2025 Goals Date Patient Goal [...] Health Functional Status Date Assessment Result Facility 05-22-2025 Functional status Ambulates [facility] Work Phone: 12-01-2024 Are you deaf, or do you have serious difficulty hearing No 12/01/2024 1:58 PM Lori Sue, CHRISTIANO No [facility] 12-01-2024 Are you blind, or do you have serious difficulty seeing, even when wearing glasses No 12/01/2024 1:58 PM Lori Sue, CHRISTIANO No [facility] 12-01-2024 Do you have serious difficulty walking or climbing stairs No 12/01/2024 1:58 PM Lori Sue, CHRISTIANO No [facility] 12-01-2024 Do you have difficul ty dressing or bathing No 12/01/2024 1:58 PM Lori Sue, CHRISTIANO No [facility] 12-01-2024 Because of a physica l, mental, or emotional condition, do you have difficulty doing errands alone such as visiting a physician's office or shopping No 12/01/2024 1:58 PM Lori Sue, CHRISTIANO No [facility] 08-31-2024 Functional status Ambulates [facility] Work Phone: 04-08-2023 Functional status Activity Abili ty Standby Assist [facility] Work Phone: 04-08-2023 Functional status Patient Activi ty Chair;Stand with Urinal [facility] Work Phone: 04-08-2023 Functional status None [facility] Work Phone: 01-16-2015 Are you deaf, or do you have serious difficulty hearing No 01/16/2015 3:35 PM EDT Sara Cassidy LPN No [facility] 01-16-2015 Are you blind, or do you have serious difficulty seeing, even when wearing glasses No 01/16/2015 3:35 PM EDT Sara Cassidy LPN No [facility] 01-16-2015 Do you have serious difficulty walking or climbing stairs No 01/16/2015 3:35 PM EDT Sara Cassidy LPN No [facility] 01-16-2015 Do you have difficul ty dressing or bathing No 01/16/2015 3:35 PM EDT Sara Cassidy LPN No [facility] 01-16-2015 Because of a physica l, mental, or emotional condition, do you have difficulty doing errands alone such as visiting a physician's office or shopping No 01/16/2015 3:35 PM EDT Sara Cassidy LPN No [facility] Mental Status Date Assessment Result Facility 05-22-2025 Cognitive function Voice/Name [facility] Work Phone: 05-21-2025 Cognitive function Level Of Cons ciousness Awake;Alert;Appropriate [facility] Work Phone: 12-01-2024 Because of a physica l, mental, or emotional condition, do you have serious difficulty concentrating, remembering, or making decisions No 12/01/2024 1:58 PM EDT Lori Sesay RN No [facility] 11-28-2024 Cognitive function Level Of Cons ciousness Awake;Alert;Appropriate [facility] Work Phone: 08-31-2024 Cognitive function Voice/Name [facility] Work Phone: 12-27-2023 Cognitive function Voice/Name [facility] Work Phone: 05-26-2023 Cognitive function Awake;Alert;Appropriat e [facility] Work Phone: 04-08-2023 Cognitive function Voice/Name;Touch/Shaki ng [facility] Work Phone: 02-25-2023 Cognitive function Voice/Name [facility] Work Phone: 01-16-2015 Because of a physica l, mental, or emotional condition, do you have serious difficulty concentrating, remembering, or making decisions No 01/16/2015 3:35 PM EDT Sara Cassidy LPN No [facility] Clinical Notes 08-26-2017 to 06-11-2025 Francisco Randolph RN - 05/24/2025 3:55 PM EDTPatient Dallas Molina MD - 05/24/2025 2:46 PM EDTBVicky fong MA - 05/24/2025 1:42 PM EDTShirley Walker RN - 05/23/2025 1:26 PM EDT Note Date & Type Note Facility 06-11-2025 Note [facility] 06-07-2025 Note [facility] 05-24-2025 Note [facility] 05-24-2025 History of Present illness Narrative Transition Care Management (TCM) Initial Outreach PCP Update / Actionable Items N/A N/A - No specialty updates needed Patient Source: [id number] ([facility]) Discharge Initial outreach: TCM discharge report Outreach Summary: TCM Update -Spoke with the patient -Denies any new or worsening symptoms -Declined medication review. Denies refill needs -States he does check his BP at home and its has been running on the lower side. Today at PCP appointment it was 83/48, PCP adjusted BP medications -Had a PCP follow up today 05/24 -Was recommended to follow up with cardiology within 2 weeks with [facility] provider. Pt states he is calling to set that up. -SDOH offered, declined at this time -Denies any further needs or concerns -H@H sent via [employer], advised to call for any new or worsening symptoms I see that you're using [employer] that s great! I wanted to let you know that you can also give a trusted family member or friend access to your account through what's called proxy access. This allows them to help you manage your healthcare by viewing the provider s messages, upcoming appointments, and test results. Would you be interested in learning more about how to set that up? Patient agrees--[employer] message sent Patient discharged from [facility] Discharge date: 05/22 Admitted for: NSTEMI Readmission Risk: N/A Value-Based Contract: ACO Contact: Contact made with patient: Yes Hi, my name is Francisco Randolph RN and I am calling from the [facility] on behalf of your Primary Care Provider, [...] or worse since leaving the hospital? Better Medications: Do you have any questions about [...] answering a few questions on this topic? Yes On the Storyboard review: Food Insecurity, Transportation, Depression, Housing, and Financial Strain: Complete any SDOHs, listed above, if not addressed in the past 3 months. If all SDOHs, listed above, have been addressed within the last 3 months, confirm responses and update any SDOHs that have changed. Action Taken: No needs verbalized. No action required. Follow-Up Appointment: [Appointment / TCM Follow-up within 14 days] I would like to help you schedule a hospital follow-up virtual or telephone visit with your PCP. This is a great way for you to connect with your provider to ensure you have safely transitioned home. If you are agreeable, I will send your request to a planner/scheduler who will contact and assist you with that appointment. This will give you an opportunity to ask any questions or address any concerns you may have with your PCP. Inform the patient that if they have any questions or concerns prior to that appointment, to call their PCP's office right away. Appointment Action: No action required; patient already has appointment scheduled. Was the hospital follow up appointment scheduled within the correct timeframe based on the patient s level of risk? POSS Scheduled -- Correct Risk Timeframe Note: Scheduling Timeframes: High-risk?- Value Hub patient OR >15% readmission risk - Scheduled within 7 days of hospital discharge Med-risk?- 14%-10% readmission risk - Scheduled within 14 days of hospital discharge Low-risk?- <10% readmission risk - Scheduled within 30 days of hospital discharge Education details: Patient and family educated on issues/questions related to reason for admission, transition of care topics, and follow-up needed upon discharge. Francisco Randolph RN May 24, 2025 4:13 PM documented in this encounter [facility] 05-24-2025 Instructions Dallas Reed MD - 05/24/2025 3:07 PM EDT LOSARTAN DECREASED FROM 100 MG TO 50 MG DAILY. documented in this encounter [facility] 05-24-2025 Note [facility] 05-24-2025 History of Present illness Narrative Geno Camejo is a 85 year old male. Patient presents with: Transition Of Care Transitional Care Management Progress Note The patients TCM visit was performed within the 7 days of discharge. Patient's Date of discharge: 05/22/2025 Date of initial coordinator contact after discharge: NA Discharge diagnosis: non STEMI, acute HFpEF, CKD IIIa, Hypothyroidism, History of AAA, Hypertension. Medication review completed Yes Provider Documentation: In follow-up of hospitalization, Leana Camejo is a 85 year old male with the chief complaint of transition of care. I have reviewed the patient s last hospital course including diagnostic testing performed during this hospitalization, their discharge medications, and my assessment and plan with the patient. There were no family members present at today s visit. He had chest pains, palpitations, and dyspnea. He was admitted 05/21/25 to 05/22/25. He was treated for non STEMI, HFpEF, CKD IIIa, There was discussion about heart cath, but this was cancelled with concerns about worsening CKD. He underwent a stress test instead, and was discharged home when stress test was negative. He will see his make up man, Dr. Laughlin in 2 weeks. His blood pressure has been running low recently. He noted a sore in his tail bone after returning home. He had been sleeping on the recliner during his hospital stay. Review of Systems Constitutional: Positive for fatigue. Negative for fever. Respiratory: Negative for shortness of breath. Cardiovascular: Negative for chest pain and palpitations. Gastrointestinal: Negative for abdominal pain, diarrhea, nausea and vomiting. Neurological: Negative for dizziness, light-headedness and headaches. 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 losartan (COZAAR) 100 mg tablet Take 1 [...] tablet (180 mg) by mouth once daily. aspirin 81 mg chewable tablet Take 1 [...] (FLONASE) 50 mcg/actuation nasal spray Use 1 [place] in each nostril daily at bedtime. (Patient not taking: Reported on 05/24/2025) No current facility-administered medications for this visit. Objective BP (!) 83/48 (BP Site: Left Arm, BP Position: Sitting, BP Cuff Size: Large Adult) Pulse 65 Wt 63.6 kg (140 lb 3.4 oz) BMI 21.32 kg/m Physical Exam Constitutional: General: He is not in acute distress. Appearance: He is not ill-appearing. HENT: Head: Normocephalic. Eyes: Conjunctiva/sclera: Conjunctivae normal. Cardiovascular: Rate and Rhythm: Normal rate and regular rhythm. Heart sounds: S1 normal and S2 normal. No murmur heard. No gallop. Pulmonary: Effort: No respiratory distress. Breath sounds: Rhonchi present. No wheezing or rales. Abdominal: Palpations: Abdomen is soft. Tenderness: There is no abdominal tenderness. Musculoskeletal: Right lower leg: No edema. Left lower leg: No edema. Skin: Comments: Left sacral round decubitus ulcer 0.5 cm diameter, non infected. Neurological: General: No focal deficit present. Mental Status: He is alert. Gait: Gait normal. ASSESSMENT/PLAN: 1. NSTEMI (non-ST elevated myocardial infarction) ([facility]) - ICD9: 410.70, ICD10: I21.4 (primary diagnosis) - Follow with Dr. Laughlin. 2. Chronic diastolic CHF (congestive heart failure) ([facility]) - ICD9: 428.32, 428.0, ICD10: I50.32 - HFmrEF 41-49 - Continue current medications 3. Stage 3b chronic kidney disease (HCC) - ICD9: 585.3, ICD10: N18.32 - eGFR: 43 Worsening - Counseled on avoiding NSAIDs, adequate hydration 4. Essential hypertension - ICD9: 401.9, ICD10: I10 Low. - Continue current medications - Decrease losartan from 100 mg to 50 mg daily. - LOSARTAN 50 MG TABLET 5. Anemia of chronic disease - ICD9: 285.29, ICD10: D63.8 - stable. 6. Type II endoleak of aortic graft - ICD9: 996.74, ICD10: I97.89 - stable. 7. Thrombocytopenia - ICD9: 287.5, ICD10: D69.6 - Stable. 8. Acquired hypothyroidism - ICD9: 244.9, ICD10: E03.9 - continue current dose of Synthroid. 9. Sacral decubitus ulcer, stage II ([facility]) - ICD9: 707.03, 707.22, ICD10: L89.152 Care discussed. Monitor. Change position every 2 hours. Dallas Reed MD documented in this encounter [facility] 05-24-2025 Note [facility] 05-24-2025 History of Present illness Narrative [facility] NAVIGATION OUTREACH Action/FYI The patient called in to ask who had called him today. I was unable to see any calls from today but there was a PCC nurse who called him yesterday. He was walking into the doctor's office and did not have time to talk. I routed to his PCC as an FYI. Reason for Outreach Healthy at Home Care Gaps due: N/A Call received from: Patient Patient Contacted: Spoke to patient/parent/or legal guardian Patient identified by name and date of Yes Healthy at Home actions taken: Routed to PCC Francisco Randolph RN as FYI Navigation Signature: Vicky Crandall MA May 24, 2025 1:42 PM documented in this encounter [facility] 05-23-2025 Note [facility] 05-23-2025 History of Present illness Narrative Value Based Care Management Inbound Call Provider Action / FYI: Date of Call: 05/23/2025 Time of Call: 1:25 PM Caller Name: Leana Camejo Caller relationship to the patient: Patient Patient identified by Name and Date of : Yes Reason for Call / Main Concern Returning call to Track Repair Laborer Summary of Callers Concern Patient was discharged from hospital, received call from [facility] Monitoring Manager and is requesting return call. Action Taken / Plan Routed to Patient's Track Repair Laborer Shirley Walker RN May 23, 2025 1:30 PM documented in this encounter [facility] 05-22-2025 Progress note Note Date/Time May 22, 2025 3:[address] [place] [address] Medical Records Department [address] [place] [id number] Progress Note 05/22/25 0959 MR#: [id number] Acct: [id number] Name: LEANA CAMEJO Rep #:[id number] : 1940 85 From: Olamide Morales MD PCP: Dr. Dallas Reed MD Status:A DM IN Location: ICU CVICU20 1-1 Subjective Subjective Patient seen and examined. He had no active complaints. He is for cardiac cath today. Review of systems is otherwise negative. He has remained hemodynamically stable. He is for cardiac cath today. Objective Data Objective Data Vital Signs: Vital Signs Temp Pulse Resp BP Pulse Ox O2 Del Method 98.1 F 69 12 128/71 H 95 Room Air 05/22/25 09:00 05/22/25 09:00 05/22/25 09:00 05/22/25 09:00 05/22/25 09:22 05/22/25 09:22 Oxygen Delivery Method Room Air Weight: 136 lb 0.403 oz Body Mass Index (BMI) 20.7 Intake & Output: Intake and Output for Last 24 Hours 05/20/25 05/21/25 05/22/25 23:59 23:59 23:59 Intake Total 628.48 / 628.48 60.66 / 60.66 Output Total 1725 / 1725 700 / 700 Balance -1096.52 / -1096.52 -639.34 / -639.34 Lab / Micro Data 05/22/25 05:30 05/22/25 05:30 Labs: Laboratory Results - last 24 hr 05/21/25 03:55: Triglycerides 46, Cholesterol 114, LDL Cholesterol, Calc 61, VLDL Cholesterol 9, HDL Cholesterol 44, Cholesterol/HDL Ratio 2.61 05/21/25 17:00: APTT 67.5 H 05/21/25 23:15: APTT 65.0 H 05/22/25 05:30: WBC 3.9 L, RBC 3.08 L, Hgb 9.2 L, Hct 27.8 L, MCV 90.3, MCH 29.9, MCHC 33.1, RDW Std Deviation 49.6 H, RDW Coeff of Erma 15.0 H, Plt Count 83L, MPV 11.1, Immature Gran % (Auto) 0.300, Neut % (Auto) 58.9, Lymph % (Auto) 25.9, [place] % (Auto) 9.6, Eos % (Auto) 4.8, Baso % (Auto) 0.5, Absolute Neuts (auto) 2.3, Absolute Lymphs (auto) 1.02, Nucleated RBC % 0, APTT 67.5 H, Sodium 138, Potassium 3.9, Chloride 104, Carbon Dioxide 24.0, Anion Gap 10, BUN 43 H, Creatinine 1.79 H, Estim Creat Clear Calc 27.06 L, Est GFR (MDRD) Non-Af 37 L, BUN/Creatinine Ratio 24.2 H, Glucose 92, Calcium 8.8, Total Bilirubin 0.50, AST 84 H, ALT 19, Alkaline Phosphatase 37 L, [place] [address] H, Total Protein 6.3, Albumin 3.5, Globulin 2.9, Albumin/Globulin Ratio 1.2 Radiography Diagnostic Testing: Radiology Impression Echocardiogram 05/21/25 04:57 Interpretation Summary The estimated ejection fraction is 40-45 %. Inferior hypokinesia Mild MR In comparison to previous echocardiogram reduced LV systolic function with EF moderate. No pericardial effusion Ordering Physician: Cameron Solares Performed By: Forrest Luis RCS Chest X-Ray 05/22/25 05:55 IMPRESSION: Slightly regressed pulmonary venous congestion changes since the prior study. Reading Location: [place] [address] Rhythm Strip Rhythm Strip: Atrial flutter Rate: 153 Ectopy: None Physical Exam Const alert, oriented x3, no apparent distress and average body habitus General Appearance: cooperative HEENT normocephalic, head/scalp atraumatic, hearing grossly normal bilaterally, moist oral mucous membranes and oropharynx normal Eyes PERRL, EOMs intact bilaterally and conjunctivae normal Neck no lymphadenopathy, supple and no JVD Lymph Lymphatic: no lymphedema noted Resp normal respiratory effort, normal air movement, no retractions, no use of accessory muscles and clear to auscultation bilaterally Cardio regular rate, regular rhythm, S1 normal heart sound and S2 normal heart sound GI normal to inspection, nondistended, normoactive bowel sounds, soft to palpation,non-tender and non-distended Extremity normal to inspection, full ROM, normal capillary refill, no clubbing, cyanosis or edema and no calf tenderness General Extremity: no tenderness to palpation of joints or extremities Skin General Skin Exam: no breakdown Neuro oriented x3, CN's II-XII intact bilaterally, moves all extremities, no focal motor deficits and no sensory deficits noted Sensorium / Orientation: awake, alert, oriented to person, oriented to place andoriented to time Speech: speech normal Motor Exam: general weakness Psych thought process normal, cooperative and affect normal Appearance: appropriate Assessment & Plan Assessment/Plan (1) Non-ST elevation NH (NSTEMI): PLAN: Plan #Nonstemi * patient admitted with a complaint of chest pain. * initial troponin was elevated and trended upwards. It was initially 93, then went up to 222 then >600 * EKG showed no acute ST changes * on heparin drip and nitro drip; now off nitro drip * for cardiac cath today. PO aspirin and high intensity statin. * 2D echo showed EF of 40-45%, with EF reduced from previous echo * #Acute exacerbation of HFpEF * pro BNP is 3942, with CXR showing evidence of fluid overload with mild central pulmonary venous congestion and unchanged emphysema. * being diuresed with iV lasix. * losartan on hold due to impaired kidney function. * 2D echo as above. * #CKD IIIa * Cr is 1.79 today. This is around the baseline Cr. * Cardiology recommends nephrology consult to evaluate due to the dye he will be receiving during cardiac cath. * nephrology consulted, await recs. * #Hypothyroidism: * TSH was markedly elevated at 9.79. * free T3 and T4 are WNL. Synthroid increased to 50mcg daily. * #History of abdominal aortic aneurysm: s/p repair in 03/2023. 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 Follow vascular surgery on outpatient basis. #Hypertension: on losartan, nifedipine, carvedilol and hydralazine. #Hyperlipidemia: on ezetimibe and bempedoic acid. #History of right carotid artery stenosis: s/p right carotid endarterectomy. On aspirin and high intensity statin. #History of BPH: on doxazosin. #Osteoathritis: s/p lumbar laminectomy x 2: stable. On acetaminophen prn. DVT prophylaxis: on heparin drip. Charges/Coding Visit Charges Inpatient E&M: 26611 Subs Hosp L2 05/22/25 1531 <Electronically signed by Olamide Morales MD> Olamide Morales MD Cosign Signature (if applicable): CC: ~ Signed [facility] Work Phone: 1(121) 502-784909-02-2025 [facility]09-02-2025 Discharge summary [facility] Medical Records Department [address] [place] [address] Instructions for Home/Discharge Instructions 05/22/25 1723 MR#: [id number] Acct: [id number] Name: LEANA CAMEJO Rep #:[id number] : 1940 85 From: Olamide Moralse MD PCP: Dr. Dallas Reed MD Status:A DM IN Discharge Instructions DC O2, CPAP, BIPAP needs Home O2 Discharge instructions: No Dressing / Incision Discharge Activity: Return to Normal Activity Weight Bearing Status: Weight bearing as tolerated Dressing / Incision Call your doctor if you observe: Fever of 101 or Higher Follow Up Care Test Results: Test results from this visit will be discussed in further detail at your follow- up appointment, if applicable. Discharge Plan Admission Admit Date/Time: 05/21/25 04:22 Primary Reason for Your Visit: chest pain Attending Provider: Olamide Morales Primary Care Provider: Dallas Reed Consulting Providers: Emily Horner; Tamera Jorgensen; Marcel Cordova; Randy Soler; Jaciel Bahena; Dedrick Zamarripa; Gilmar Mueller; Donato Longoria; Cameron Leiva; Lorraine Mcdowell; Alexandru Laughlin; Beronica Turcios; Elisha Eason; Jm Wilson; Sinan Toro; Mike Jay NP; Kylah Arias; Jeremy Sebastian; Cameron Solares; Gricel Donald Instructions Patient Instructions: ED Heart Disease Risk Factors Discharge Orders/Prescriptions Prescriptions: Continued multivitamin Tablet 1 tab PO DAILY losartan 100 mg tablet 100 mg PO DAILY ascorbic acid (vitamin C) 500 mg capsule 1,000 mg PO DAILY magnesium oxide 400 mg (241.3 mg magnesium) tablet 400 mg PO DAILY doxazosin 8 mg tablet 8 mg PO QHS hydralazine 100 mg tablet 100 mg PO TID nifedipine 60 mg tablet extended release 60 mg PO DAILY ferrous sulfate [Feosol] 325 mg (65 mg iron) tablet 325 mg PO DAILY cholecalciferol (vitamin D3) [Vitamin D3] 125 mcg (5,000 unit) tablet 125 mcg PO DAILY ezetimibe 10 mg tablet 10 mg PO DAILY Nexletol 180 mg tablet 180 mg PO DAILY levothyroxine 25 mcg tablet 25 mcg PO DAILY carvedilol 6.25 mg tablet 6.25 mg PO BID furosemide 20 mg tablet 20 mg PO DAILY Referrals / Follow Up: Alexandru Laughlin MD [Med Staff - Active Staff] - Within 2 Weeks Dallas Reed MD [Primary Care Provider] - Within 1 Week Disposition Disposition (needs filled in before D/C Order can be placed): Home, Self Care 05/22/25 1726Olamide Morales MD CC: SHELLIE Jay; Dr. Marcel Cordova MD; Dr. Tamera Jorgensen MD; Dr. Emily Horner MD; Dr. Jaciel Bahena MD; Dr. Randy Soler MD; Dr. Dedrick Zamarripa MD; Dr. Gilmar Mueller MD; Dr. Donato Longoria MD; Dr.David Mira Leiva DO; Dr. Cameron Solares DO; Dr. Lorraine Mcdowell MD; Dr. Gricel Donald MD; Dr. Alexandru Laughlin MD; Dr. Beronica Turcios MD; Dr. Sinan Toro MD; Dr. Elisha Eason MD; Dr. Jm Wilson MD; Dr. Dallas Reed MD; CHRIS Chand; CHRIS Murrell ~ Signed [facility]09-02-2025 Progress note [facility] Medical Records Department [address] [place] [address] Progress Note - Cardiology 05/22/25 1620 MR#: [id number] Acct: [id number] Name: LEANA CAMEJO Rep #:[id number] : 1940 85 From: Alexandru Laughlin MD PCP: Dr. Dallas Reed MD Status:A DM IN Location: ICU CVICU20 1-1 Subjective Subjective Patient completed stress test today which was pharmacologic nuclear. 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 Patient continues to be symptom-free he is ambulating in the halls. Objective Data Vital Signs: Vital Signs Temp Pulse Resp BP Pulse Ox O2 Del Method 98.1 F 85 15 101/51 L 97 Room Air 05/22/25 10:00 05/22/25 15:51 05/22/25 15:00 05/22/25 15:51 05/22/25 15:00 05/22/25 15:00 Oxygen Delivery Method Room Air Weight: 136 lb 0.403 oz Body Mass Index (BMI) 20.7 Intake & Output: Intake and Output for Last 24 Hours 05/20/25 05/21/25 05/22/25 23:59 23:59 23:59 Intake Total 628.48 / 628.48 149.48 / 149.48 Output Total 1725 / 1725 700 / 700 Balance -1096.52 / -1096.52 -550.52 / -550.52 Lab / Micro Data 05/22/25 05:30 05/22/25 05:30 Labs: Laboratory Results - last 24 hr 05/21/25 17:00: APTT 67.5 H 05/21/25 23:15: APTT 65.0 H 05/22/25 05:30: WBC 3.9 L, RBC 3.08 L, Hgb 9.2 L, Hct 27.8 L, MCV 90.3, MCH 29.9, MCHC 33.1, RDW Std Deviation 49.6 H, RDW Coeff of Erma 15.0 H, Plt Count 83L, MPV 11.1, Immature Gran % (Auto) 0.300, Neut % (Auto) 58.9, Lymph % (Auto) 25.9, [place] % (Auto) 9.6, Eos % (Auto) 4.8, Baso % (Auto) 0.5, Absolute Neuts (auto) 2.3, Absolute Lymphs (auto) 1.02, Nucleated RBC % 0, APTT 67.5 H, Sodium 138, Potassium 3.9, Chloride 104, Carbon Dioxide 24.0, Anion Gap 10, BUN 43 H, Creatinine 1.79 H, Estim Creat Clear Calc 27.06 L, Est GFR (MDRD) Non-Af 37 L, BUN/Creatinine Ratio 24.2 H, Glucose 92, Calcium 8.8, Total Bilirubin 0.50, AST 84 H, ALT 19, Alkaline Phosphatase 37 L, [place] [address] H, Total Protein 6.3, Albumin 3.5, Globulin 2.9, Albumin/Globulin Ratio 1.2 Rhythm Strip Rhythm Strip: Sinus Rhythm Rate: 70 Ectopy: None Cardiology Labs/Tests 05/21/25 17:00: APTT 67.5 H 05/21/25 23:15: APTT 65.0 H 05/22/25 05:30: WBC 3.9 L, RBC 3.08 L, Hgb 9.2 L, Hct 27.8 L, MCV 90.3, MCH 29.9, MCHC 33.1, Plt Count 83 L, MPV 11.1, Immature Gran % (Auto) 0.300, Neut % (Auto) 58.9, Lymph % (Auto) 25.9, [place] % (Auto) 9.6, Eos % (Auto) 4.8, Baso % (Auto) 0.5, Absolute Neuts (auto) 2.3, Nucleated RBC % 0, APTT 67.5 H, Sodium 138, Potassium 3.9, Chloride 104, Carbon Dioxide 24.0, Anion Gap 10, BUN 43 H, Creatinine 1.79 H, Est GFR (MDRD) Non-Af 37 L, BUN/Creatinine Ratio 24.2 H, Glucose 92, Calcium 8.8, Total Bilirubin 0.50 Rhythm: EKG: ECHO: Stress Test: Cardiac Cath: PCI: CT Surgery: Holter monitor: EPS: PPM: CXR: Chest CT Scan: Radiography Diagnostic Testing: Radiology Impression Chest X-Ray 05/22/25 05:55 IMPRESSION: Slightly regressed pulmonary venous congestion changes since the prior study. Reading [facility] [address] Assessment & Plan Assessment/Plan (1) Non-ST elevation NH (NSTEMI): PLAN: Patient is bumped his enzymes up to 650 are probably consistent with an ischemia related to demand. 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 The anterior wall appears to be well-perfused. The patient has no recurring chest symptoms he has been active in his room without any symptoms. Hehas had no recurrence of his atrial flutter. I recommend the patient be continued on his carvedilol 6.25 mg twice daily his furosemide 20 mg daily and the hydralazine 100 mg 3 times daily losartan 100 mg daily and his Nexletol as well as nifedipine. The patient should be reevaluated in the [facility] office in 2 weeks with one of the WEN's and check a basic metabolic panel to determine the patient's renal function and then see Dr. Laughlin in 6 weeks. Should the patient have symptoms consistent with angina would recommend pursuingleft heart catheterization. PLAN: Plan 1. Continue current medical therapy. 2. Basic metabolic panel and WEN visit with the [facility] in 2 weeks. 3. Patient instructed to call the [facility] should he have any type of chest tightness orsymptoms consistent with angina. 4. Patient to follow-up with Dr. Laughlin in 6 weeks in the office. 05/22/25 1625 Cosigner Signature (if applicable): CC: ~ Signed [facility]09-02-2025 Progress note [facility] Medical Records Department [address] [place] [address] Progress Note 05/22/25 0959 MR#: [id number] Acct: [id number] Name: LEANA CAMEJO Rep #:[id number] : 1940 85 From: Olamide Morales MD PCP: Dr. Dallas Reed MD Status:A DM IN Location: ICU CVICU 1-1 Subjective Subjective Patient seen and examined. He had no active complaints. He is for cardiac cath today. Review of systems is otherwise negative. He has remained hemodynamically stable. He is for cardiac cath today. Objective Data Objective Data Vital Signs: Vital Signs Temp Pulse Resp BP Pulse Ox O2 Del Method 98.1 F 69 12 128/71 H 95 Room Air 05/22/25 09:00 05/22/25 09:00 05/22/25 09:00 05/22/25 09:00 05/22/25 09:22 05/22/25 09:22 Oxygen Delivery Method Room Air Weight: 136 lb 0.403 oz Body Mass Index (BMI) 20.7 Intake & Output: Intake and Output for Last 24 Hours 05/20/25 05/21/25 05/22/25 23:59 23:59 23:59 Intake Total 628.48 / 628.48 60.66 / 60.66 Output Total 1725 / 1725 700 / 700 Balance -1096.52 / -1096.52 -639.34 / -639.34 Lab / Micro Data 05/22/25 05:30 05/22/25 05:30 Labs: Laboratory Results - last 24 hr 05/21/25 03:55: Triglycerides 46, Cholesterol 114, LDL Cholesterol, Calc 61, VLDL Cholesterol 9, HDL Cholesterol 44, Cholesterol/HDL Ratio 2.61 05/21/25 17:00: APTT 67.5 H 05/21/25 23:15: APTT 65.0 H 05/22/25 05:30: WBC 3.9 L, RBC 3.08 L, Hgb 9.2 L, Hct 27.8 L, MCV 90.3, MCH 29.9, MCHC 33.1, RDW Std Deviation 49.6 H, RDW Coeff of Erma 15.0 H, Plt Count 83L, MPV 11.1, Immature Gran % (Auto) 0.300, Neut % (Auto) 58.9, Lymph % (Auto) 25.9, [place] % (Auto) 9.6, Eos % (Auto) 4.8, Baso % (Auto) 0.5, Absolute Neuts (auto) 2.3, Absolute Lymphs (auto) 1.02, Nucleated RBC % 0, APTT 67.5 H, Sodium 138, Potassium 3.9, Chloride 104, Carbon Dioxide 24.0, Anion Gap 10, BUN 43 H, Creatinine 1.79 H, Estim Creat Clear Calc 27.06 L, Est GFR (MDRD) Non-Af 37 L, BUN/Creatinine Ratio 24.2 H, Glucose 92, Calcium 8.8, Total Bilirubin 0.50, AST 84 H, ALT 19, Alkaline Phosphatase 37 L, [place] [address] H, Total Protein 6.3, Albumin 3.5, Globulin 2.9, Albumin/Globulin Ratio 1.2 Radiography Diagnostic Testing: Radiology Impression Echocardiogram 05/21/25 04:57 Interpretation Summary The estimated ejection fraction is 40-45 %. Inferior hypokinesia Mild MR In comparison to previous echocardiogram reduced LV systolic function with EF moderate. No pericardial effusion Ordering Physician: Cameron Solares Performed By: Forrest Luis RCS Chest X-Ray 05/22/25 05:55 IMPRESSION: Slightly regressed pulmonary venous congestion changes since the prior study. Reading Location: [place] [address] Rhythm Strip Rhythm Strip: Atrial flutter Rate: 153 Ectopy: None Physical Exam Const alert, oriented x3, no apparent distress and average body habitus General Appearance: cooperative HEENT normocephalic, head/scalp atraumatic, hearing grossly normal bilaterally, moist oral mucous membranes and oropharynx normal Eyes PERRL, EOMs intact bilaterally and conjunctivae normal Neck no lymphadenopathy, supple and no JVD Lymph Lymphatic: no lymphedema noted Resp normal respiratory effort, normal air movement, no retractions, no use of accessory muscles and clear to auscultation bilaterally Cardio regular rate, regular rhythm, S1 normal heart sound and S2 normal heart sound GI normal to inspection, nondistended, normoactive bowel sounds, soft to palpation,non-tender and non-distended Extremity normal to inspection, full ROM, normal capillary refill, no clubbing, cyanosis or edema and no calftenderness General Extremity: no tenderness to palpation of joints or extremities Skin General Skin Exam: no breakdown Neuro oriented x3, CN's II-XII intact bilaterally, moves all extremities, no focal motor deficits and no sensory deficits noted Sensorium / Orientation: awake, alert, oriented to person, oriented to place andoriented to time Speech: speech normal Motor Exam: general weakness Psych thought process normal, cooperative and affect normal Appearance: appropriate Assessment & Plan Assessment/Plan (1) Non-ST elevation NH (NSTEMI): PLAN: Plan #Nonstemi * patient admitted with a complaint of chest pain. * initial troponin was elevated and trended upwards. It was initially 93, then went up to 222 then >600 * EKG showed no acute ST changes * on heparin drip and nitro drip; now off nitro drip * for cardiac cath today. PO aspirin and high intensity statin. * 2D echo showed EF of 40-45%, with EF reduced from previous echo * #Acute exacerbation of HFpEF * pro BNP is 3942, with CXR showing evidence of fluid overload with mild central pulmonary venous congestion and unchanged emphysema. * being diuresed with iV lasix. * losartan on hold due to impaired kidney function. * 2D echo as above. * #CKD IIIa * Cr is 1.79 today. This is around the baseline Cr. * Cardiology recommends nephrology consult to evaluate due to the dye he will be receiving during cardiac cath. * nephrology consulted, await recs. * #Hypothyroidism: * TSH was markedly elevated at 9.79. * free T3 and T4 are WNL. Synthroid increased to 50mcg daily. * #History of abdominal aortic aneurysm: s/p repair in 03/2023. 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 Follow vascular surgery on outpatient basis. #Hypertension: on losartan, nifedipine, carvedilol and hydralazine. #Hyperlipidemia: on ezetimibe and bempedoic acid. #History of right carotid artery stenosis: s/p right carotid endarterectomy. On aspirin and high intensity statin. #History of BPH: on doxazosin. #Osteoathritis: s/p lumbar laminectomy x 2: stable. On acetaminophen prn. DVT prophylaxis: on heparin drip. Charges/Coding Visit Charges Inpatient E&M: 87932 Subs Hosp L2 05/22/25 1532 Olamide Morales MD Cosigner Signature (if applicable): CC: ~ Signed [facility]09-02-2025 Progress note Author Gricel Donald [facility] Note Date/Time May 22, 2025 12:06pm [facility] Medical Records Department [address] [place] [address] Progress Note 05/22/25 1205 MR#: [id number] Acct: [id number] Name: LEANA CAMEJO KRYSTLE Rep #:[id number] : 1940 85 From: Gricel echeverria MD PCP: Dr. Dallas Reed MD Status:A DM IN Location: ICU CVICU20 1 Progress Note Went to see patient, was on stress test. Chart reviewed. Creatinine stable. No plans for coronary angiogram as of today. 05/22/25 1206 <Electronically signed by Gricel Donald MD> Gricel Donald MD Cosigner Signature (if applicable): CC: ~ Signed [facility] Work Phone: 1(772) 980-821309-02-2025 Hospital Discharge instructionsAdditional Instructions [facility]: [facility]: 1(981) 175-844209-02-2025 Progress note Author Alexandru Laughlin [facility] Note Date/Time May 22, 2025 10:42am [facility] Medical Records Department [address] [place] [address] Progress Note - Cardiology 05/22/25 1023 MR#: [id number] Acct: [id number] Name: LEANA CAMEJO Rep #:[id number] : 1940 85 From: Alexandru Laughlin MD PCP: Dr. Dallas Reed MD Status:A DM IN Location: ICU CVICU20 09-20 Subjective Subjective Patient resting comfortably in bed. He tells me he feels really good today and is active looking forward to going home. The patient's creatinine remains elevated 1.79. He was planned to have a heart catheterization done later today. However, the patient reports to me he never really had chest pain he does had fluttering in his chest with the atrial flutter and a sensation that his heart was running away from him when he presented. His ECG did not show any acute ischemic changes either. His enzymeswere positive but in the face of renal failure and tachycardia. Objective Data Vital Signs: Vital Signs Temp Pulse Resp BP Pulse Ox O2 Del Method 98.1 F 69 12 128/71 H 95 Room Air 05/22/25 09:00 05/22/25 09:00 05/22/25 09:00 05/22/25 09:00 05/22/25 09:22 05/22/25 09:22 Oxygen Delivery Method Room Air Weight: 136 lb 0.403 oz Body Mass Index (BMI) 20.7 Intake & Output: Intake and Output for Last 24 Hours 05/20/25 05/21/25 05/22/25 23:59 23:59 23:59 Intake Total 628.48 / 628.48 60.66 / 60.66 Output Total 1725 / 1725 700 / 700 Balance -1096.52 / -1096.52 -639.34 / -639.34 Lab / Micro Data 05/22/25 05:30 05/22/25 05:30 Labs: Laboratory Results - last 24 hr 05/21/25 03:55: Cholesterol 114, LDL Cholesterol, Calc 61, Cholesterol/HDL Ratio2.61 05/21/25 17:00: APTT 67.5 H 05/21/25 23:15: APTT 65.0 H 05/22/25 05:30: WBC 3.9 L, RBC 3.08 L, Hgb 9.2 L, Hct 27.8 L, MCV 90.3, MCH 29.9, MCHC 33.1, RDW Std Deviation 49.6 H, RDW Coeff of Erma 15.0 H, Plt Count 83L, MPV 11.1, Immature Gran % (Auto) 0.300, Neut % (Auto) 58.9, Lymph % (Auto) 25.9, [place] % (Auto) 9.6, Eos % (Auto) 4.8, Baso % (Auto) 0.5, Absolute Neuts (auto) 2.3, Absolute Lymphs (auto) 1.02, Nucleated RBC % 0, APTT 67.5 H, Sodium 138, Potassium 3.9, Chloride 104, Carbon Dioxide 24.0, Anion Gap 10, BUN 43 H, Creatinine 1.79 H, Estim Creat Clear Calc 27.06 L, Est GFR (MDRD) Non-Af 37 L, BUN/Creatinine Ratio 24.2 H, Glucose 92, Calcium 8.8, Total Bilirubin 0.50, AST 84 H, ALT 19, Alkaline Phosphatase 37 L, [place] [address] H, Total Protein 6.3, Albumin 3.5, Globulin 2.9, Albumin/Globulin Ratio 1.2 Rhythm Strip Rhythm Strip: Sinus Rhythm Rate: 70 Ectopy: None Cardiology Labs/Tests 05/21/25 03:55: Cholesterol 114, Cholesterol/HDL Ratio 2.61 05/21/25 17:00: APTT 67.5 H 05/21/25 23:15: APTT 65.0 H 05/22/25 05:30: WBC 3.9 L, RBC 3.08 L, Hgb 9.2 L, Hct 27.8 L, MCV 90.3, MCH 29.9, MCHC 33.1, Plt Count 83 L, MPV 11.1, Immature Gran % (Auto) 0.300, Neut % (Auto) 58.9, Lymph % (Auto) 25.9, [place] % (Auto) 9.6, Eos % (Auto) 4.8, Baso % (Auto) 0.5, Absolute Neuts (auto) 2.3, Nucleated RBC % 0, APTT 67.5 H, Sodium 138, Potassium 3.9, Chloride 104, Carbon Dioxide 24.0, Anion Gap 10, BUN 43 H, Creatinine 1.79 H, Est GFR (MDRD) Non-Af 37 L, BUN/Creatinine Ratio 24.2 H, Glucose 92, Calcium 8.8, Total Bilirubin 0.50 Rhythm: EKG: ECHO: Stress Test: Cardiac Cath: PCI: CT Surgery: Holter monitor: EPS: PPM: CXR: Chest CT Scan: Radiography Diagnostic Testing: Radiology Impression Echocardiogram 05/21/25 04:57 Interpretation Summary The estimated ejection fraction is 40-45 %. Inferior hypokinesia Mild MR In comparison to previous echocardiogram reduced LV systolic function with EF moderate. No pericardial effusion Ordering Physician: Cameron Solares Performed By: Forrest Luis RCS Chest X-Ray 05/22/25 05:55 IMPRESSION: Slightly regressed pulmonary venous congestion changes since the prior study. Reading Location: [place] [address] Physical Exam Const alert and oriented x3 HEENT normocephalic Eyes EOMs intact bilaterally Neck no JVD and no carotid bruits Chest inspection of chest normal Resp normal respiratory effort and clear to auscultation bilaterally Cardio Rate: regular rate Rhythm: regular rhythm Heart Sounds: S1 normal and S2 normal; Negative for click, gallop or murmur GI normal to inspection, nondistended, normoactive bowel sounds Extremity no pedal edema Neuro Neuro Narrative: Alert and oriented x 3 Psych mental status grossly normal Assessment & Plan Assessment/Plan (1) DALTON (acute kidney injury): PLAN: Patient has acute on chronic renal insufficiency. BUN is 43 creatinine 1.79 with a GFR of 35 yesterday today is BUN is 43 creatinine 1.79 with a GFR of37. Renal has been consulted yesterday for their opinion concerning contrast exposure with catheterization. However, at this point, feel that the better part of valor would be to pursue a pharmacologic nuclear stress test to define his extent of potential cardiac ischemia. We will wait nephrology's input as well. (2) Non-ST elevation NH (NSTEMI): PLAN: The patient's initial ECG was in atrial flutter with a heart rate of [address] and T wave changes. Following spontaneous conversion tosinus rhythm the heart rate was in the 80 bpm range with what appeared to be ST and T wave changes consistent with LVH. Patient's troponins were 93, 222 and then 671 on the third set. The patient hashad no anginal type symptoms. He does have an elevated creatinine and it is likely he has atherosclerotic disease given his AAA. It is likely that this is a demand ischemic type event from his tachycardia. Patient also is mildly anemic hemoglobin 9.2. Given the patient's renal sufficiency, his relative anemia and thrombocytopenia,and the fact that he feels fine, I am concerned about exposing him to contrast with a catheterization in this given situation. I discussed this in detail with the patient and would recommend that we perform a pharmacologic nuclear stress test to define the severity of ischemia which would also help guide further catheterization approaches and interventions. Pharmacologic nuclear stress test will be done today. (3) New onset atrial flutter: PLAN: Patient presented with new onset atrial flutter which spontaneously converted to sinus rhythm by his report. This was documented in the emergency department both on ECG and rhythm strip. (4) Anemia: QUALIFIERS: Anemia type: unspecified type Qualified Code(s): D64.9 - Anemia, unspecified PLAN: Patient's hemoglobin is 9.2. Platelets are 83,000 which are trending down. (5) Essential hypertension: PLAN: Patient's blood pressure has been adequate controlled in the hospital and by his report in his home environment with medical therapy. (6) Shortness of breath: PLAN: Patient shortness of breath resolved when he reverted from atrial flutter back into sinus rhythm. His BNP was 5468 in January 2025 it was down to 3900 on admission and now is 11,710. The patient has been receiving IV Lasix and is LV ejection fraction is known to be in the 40-45% by echo on this admission. PLAN: Plan 1. Will cancel catheterization for today. 2. Await nephrology input. 3. Will proceed with pharmacologic nuclear stress test if no significant ischemia the patient could be discharged home on his current medical therapy. 4. Patient should follow-up with his make up man in the next 7 to 10 days. Charges/Coding Visit Charges Inpatient E&M: 12569 Subs Hosp L3 05/22/25 1042 <Electronically signed by Alexandru Laughlin MD> Cosigner Signature (if applicable): CC: ~ Signed [facility] Work Phone: 1(847) 630-843209-02-2025 Progress note [facility] Medical Records Department [address] [place] [address] Progress Note 05/22/255 MR#: [id number] Acct: [id number] Name: LEANA CAMEJO Rep #:[id number] : 1940 85 From: Gricel echeverria MD PCP: Dr. Dallas Reed MD Status:A DM IN Location: ICU CVICU20 1- Progress Note Went to see patient, was on stress test. Chart reviewed. Creatinine stable. No plans for coronary angiogram as of today. 05/22/25 1206 Gricel Donald MD Cosigner Signature (if applicable): CC: ~ Signed [facility]09-02-2025 Progress note [facility] Medical Records Department [address] [place] [address] Progress Note - Cardiology 05/22/25 1023 MR#: [id number] Acct: [id number] Name: LEANA CAMEJO Rep #:[id number] : 1940 85 From: Alexandru Laughlin MD PCP: Dr. Dallas Reed MD Status:A DM IN Location: ICU CVICU20 1-1 Subjective Subjective Patient resting comfortably in bed. He tells me he feels really good today and is active looking forward to going home. The patient's creatinine remains elevated 1.79. He was planned to have a heart catheterization donelater today. However, the patient reports to me he never really had chest pain he does had fluttering in his chest with the atrial flutter and a sensation that his heart was running away from him when he presented. His ECG did not show any acute ischemic changes either. His enzymeswere positive butin the face of renal failure and tachycardia. Objective Data Vital Signs: Vital Signs Temp Pulse Resp BP Pulse Ox O2 Del Method 98.1 F 69 12 128/71 H 95 Room Air 05/22/25 09:00 05/22/25 09:00 05/22/25 09:00 05/22/25 09:00 05/22/25 09:22 05/22/25 09:22 Oxygen Delivery Method Room Air Weight: 136 lb 0.403 oz Body Mass Index (BMI) 20.7 Intake & Output: Intake and Output for Last 24 Hours 05/20/25 05/21/25 05/22/25 23:59 23:59 23:59 Intake Total 628.48 / 628.48 60.66 / 60.66 Output Total 1725 / 1725 700 / 700 Balance -1096.52 / -1096.52 -639.34 / -639.34 Lab / Micro Data 05/22/25 05:30 05/22/25 05:30 Labs: Laboratory Results - last 24 hr 05/21/25 03:55: Cholesterol 114, LDL Cholesterol, Calc 61, Cholesterol/HDL Ratio2.61 05/21/25 17:00: APTT 67.5 H 05/21/25 23:15: APTT 65.0 H 05/22/25 05:30: WBC 3.9 L, RBC 3.08 L, Hgb 9.2 L, Hct 27.8 L, MCV 90.3, MCH 29.9, MCHC 33.1, RDW Std Deviation 49.6 H, RDW Coeff of Erma 15.0 H, Plt Count 83L, MPV 11.1, Immature Gran % (Auto) 0.300, Neut % (Auto) 58.9, Lymph % (Auto) 25.9, [place] % (Auto) 9.6, Eos % (Auto) 4.8, Baso % (Auto) 0.5, Absolute Neuts (auto) 2.3, Absolute Lymphs (auto) 1.02, Nucleated RBC % 0, APTT 67.5 H, Sodium 138, Potassium 3.9, Chloride 104, Carbon Dioxide 24.0, Anion Gap 10, BUN 43 H, Creatinine 1.79 H, Estim Creat Clear Calc 27.06 L, Est GFR (MDRD) Non-Af 37 L, BUN/Creatinine Ratio 24.2 H, Glucose 92, Calcium 8.8, Total Bilirubin 0.50, AST 84 H, ALT 19, Alkaline Phosphatase 37 L, [place] [address] H, Total Protein 6.3, Albumin 3.5, Globulin 2.9, Albumin/Globulin Ratio 1.2 Rhythm Strip Rhythm Strip: Sinus Rhythm Rate: 70 Ectopy: None Cardiology Labs/Tests 05/21/25 03:55: Cholesterol 114, Cholesterol/HDL Ratio 2.61 05/21/25 17:00: APTT 67.5 H 05/21/25 23:15: APTT 65.0 H 05/22/25 05:30: WBC 3.9 L, RBC 3.08 L, Hgb 9.2 L, Hct 27.8 L, MCV 90.3, MCH 29.9, MCHC 33.1, Plt Count 83 L, MPV 11.1, Immature Gran % (Auto) 0.300, Neut % (Auto) 58.9, Lymph % (Auto) 25.9, [place] % (Auto) 9.6, Eos % (Auto) 4.8, Baso % (Auto) 0.5, Absolute Neuts (auto) 2.3, Nucleated RBC % 0, APTT 67.5 H, Sodium 138, Potassium 3.9, Chloride 104, Carbon Dioxide 24.0, Anion Gap 10, BUN 43 H, Creatinine 1.79 H, Est GFR (MDRD) Non-Af 37 L, BUN/Creatinine Ratio 24.2 H, Glucose 92, Calcium 8.8, Total Bilirubin 0.50 Rhythm: EKG: ECHO: Stress Test: Cardiac Cath: PCI: CT Surgery: Holter monitor: EPS: PPM: CXR: Chest CT Scan: Radiography Diagnostic Testing: Radiology Impression Echocardiogram 05/21/25 04:57 Interpretation Summary The estimated ejection fraction is 40-45 %. Inferior hypokinesia Mild MR In comparison to previous echocardiogram reduced LV systolic function with EF moderate. No pericardial effusion Ordering Physician: Cameron Solares Performed By: Forrest Luis RCS Chest X-Ray 05/22/25 05:55 IMPRESSION: Slightly regressed pulmonary venous congestion changes since the prior study. Reading Location: [place] [address] Physical Exam Const alert and oriented x3 HEENT normocephalic Eyes EOMs intact bilaterally Neck no JVD and no carotid bruits Chest inspection of chest normal Resp normal respiratory effort and clear to auscultation bilaterally Cardio Rate: regular rate Rhythm: regular rhythm Heart Sounds: S1 normal and S2 normal; Negative for click, gallop or murmur GI normal to inspection, nondistended, normoactive bowel sounds Extremity no pedal edema Neuro Neuro Narrative: Alert and oriented x 3 Psych mental status grossly normal Assessment & Plan Assessment/Plan (1) DALTON (acute kidney injury): PLAN: Patient has acute on chronic renal insufficiency. BUN is 43 creatinine 1.79 with a GFR of 35 yesterday today is BUN is 43 creatinine 1.79 with a GFR of37. Renal has been consulted yesterday fortheir opinion concerning contrast exposure with catheterization. However, at this point, feel that the better part of valor would be to pursue a pharmacologic nuclear stress test to define his extentof potential cardiac ischemia. We will wait nephrology's input as well. (2) Non-ST elevation NH (NSTEMI): PLAN: The patient's initial ECG was in atrial flutter with a heart rate of 150 bpm with nonspecificST and T wave changes. Following spontaneous conversion tosinus rhythm the heart rate was in the 80bpm range with what appeared to be ST and T wave changes consistent with LVH. Patient's troponins were 93, 222 and then 671 on the third set. The patient hashad no anginal type symptoms. He does have an elevated creatinine and it is likely he has atherosclerotic disease given his AAA. It is likely that this is a demand ischemic type event from his tachycardia. Patient also is mildly anemic hemoglobin 9.2. Given the patient's renal sufficiency, his relative anemia and thrombocytopenia,and the fact that he feels fine, I am concerned about exposing him to contrast with a catheterization in this given situation. I discussed this in detail with the patient and would recommend that we perform a pharmacologic nuclear stress test to define the severity of ischemia which would also help guide further catheterization approaches and interventions. Pharmacologic nuclear stress test will be done today. (3) New onset atrial flutter: PLAN: Patient presented with new onset atrial flutter which spontaneously converted to sinus rhythmby his report. This was documented in the emergency department both on ECG and rhythm strip. (4) Anemia: QUALIFIERS: Anemia type: unspecified type Qualified Code(s): D64.9 - Anemia, unspecified PLAN: Patient's hemoglobin is 9.2. Platelets are 83,000 which are trending down. (5) Essential hypertension: PLAN: Patient's blood pressure has been adequate controlled in the hospital and by his report in his home environment with medical therapy. (6) Shortness of breath: PLAN: Patient shortness of breath resolved when he reverted from atrial flutter back into sinus rhythm. His BNP was 5468 in January 2025 it was down to 3900 on admission and now is 11,710. The patient has been receiving IV Lasix and is LV ejection fraction is known to be in the 40-45% by echo on this admission. PLAN: Plan 1. Will cancel catheterization for today. 2. Await nephrology input. 3. Will proceed with pharmacologic nuclear stress test if no significant ischemia the patient couldbe discharged home on his current medical therapy. 4. Patient should follow-up with his make up man in the next 7 to 10 days. Charges/Coding Visit Charges Inpatient E&M: 47054 Subs Hosp L3 05/22/25 1042 Cosigner Signature (if applicable): CC: ~ Signed [facility]09-02-2025 Radiology Diagnostic study note [facility] Imaging Services [address] [place] [address] Chest 1 View (Portable) MR#: [id number] Acct: [id number] Name: LEANA CAMEJO Rep #: [id number] : 1940 M 85 From: Christina Shaffer MD PCP: Dr. Dallas Reed MD Status: A DM IN Study:Chest 1 View (Portable) Date of Exam: 05/22/25 Exam# [id number] Ordering Dr: Cameron Dockery DO PROCEDURE: CHEST 1 VIEW (PORTABLE) 05/22/2025 REASON FOR EXAM: AE CHF. TECHNIQUE: Frontal view of the chest. COMPARISON: 05/21/2025 FINDINGS: Stable apical and basilar atelectasis since the prior study. Stable enlarged cardiac size and aortic calcifications. Stable calcified hilar lymph nodes. Regressed pulmonary venous congestion changes. Stable osseous structures RAD/Chest 1 View (Portable) IMPRESSION: Slightly regressed pulmonary venous congestion changes since the prior study. [facility] CC: Dr. Cameron Solares DO; Dr. Dallas Reed MD ~ English Lecturer: Signed [facility]09-01-2025 Progress note Author Olamide Magdalenocurtis [facility] Note Date/Time May 21, 2025 4:48pm [facility] Medical Records Department [address] [place] [address] Progress Note 05/21/25 1132 MR#: [id number] Acct: [id number] Name: LEANA CAMEJO Rep #:[id number] : 1940 85 From: Olamide Morales MD PCP: Dr. Dallas Reed MD Status:A DM IN Location: ICU CVICU20 1-1 Subjective Subjective Patient seen and examined. His and grandson were by his bedside. He denied any chest pain, shortness of breath, palpitations, nausea or vomiting or any other symptoms. Review of systems otherwise negative. He has not had any more chest pain since admission. Review of systems otherwise negative. Objective Data Objective Data Vital Signs: Vital Signs Temp Pulse Resp BP Pulse Ox O2 Del Method 97.9 F 77 18 108/64 99 Room Air 05/21/25 10:00 05/21/25 11:00 05/21/25 11:00 05/21/25 11:00 05/21/25 11:00 05/21/25 11:00 Oxygen Delivery Method Room Air Weight: 139 lb 12.369 oz Body Mass Index (BMI) 21.2 Intake & Output: Intake and Output for Last 24 Hours 05/19/25 05/20/25 05/21/25 23:59 23:59 23:59 Intake Total 591.33 / 591.33 Output Total 625 / 625 Balance -33.67 / -33.67 Lab / Micro Data 05/21/25 01:25 05/21/25 01:25 Labs: Laboratory Results - last 24 hr 05/21/25 01:25: WBC 4.5, RBC 3.58 L, Hgb 10.5 L, Hct 32.6 L, MCV 91.1, MCH 29.3,MCHC 32.2, RDW Std Deviation 49.6 H, RDW Coeff of Erma 14.7 H, Plt Count 92 L, MPV 11.2, Immature Gran % (Auto) 0.700, Neut % (Auto) 73.0 H, Lymph % (Auto) 16.2 L, [place] % (Auto) 5.8, Eos % (Auto) 3.6, Baso % (Auto) 0.7, Absolute Neuts (auto) 3.3, Absolute Lymphs (auto) 0.72 L, Nucleated RBC % 0, PT 16.0 H, INR 1.3, APTT 45.1 H, Sodium 140, Potassium 4.2, Chloride 104, Carbon Dioxide 21.4, Anion Gap 15, BUN 46 H, Creatinine 1.86 H, Estim Creat Clear Calc 26.20 L, Est GFR (MDRD) Non-Af 35 L, BUN/Creatinine Ratio 24.7 H, Glucose 115 H, Calcium 9.2,Magnesium 2.1, Troponin T High Sens 93 H*, NT pro BNP II 3942 H, TSH 9.790 H 05/21/25 03:35: Troponin T Hi Sens 2 Hr 222 H*, Free T4 1.00 05/21/25 03:55: Phosphorus 2.5 L, Triglycerides 46, Cholesterol 114, LDL Cholesterol, Calc 61, VLDL Cholesterol 9, HDL Cholesterol 44, Cholesterol/HDL Ratio 2.61, Free T3 pg/dL 2.2 05/21/25 06:00: Troponin T Hi Sens 4Hr 671 H* 05/21/25 07:55: Urine Color Yellow, Urine Clarity Clear, Urine pH 7.0, Ur Specific Cammal 1.010, Urine Protein 15 H, Urine Glucose (UA) Normal, Urine Ketones Negative, Urine Occult Blood Negative, Urine Nitrite Negative, Urine Bilirubin Negative, Urine Urobilinogen Normal, Ur Leukocyte Esterase Negative, Urine RBC 0 SEEN, Urine WBC 0 SEEN, Ur Squamous Epith Cells 0 SEEN, Urine Bacteria 0 SEEN, Urine Mucus 0 SEEN 05/21/25 09:05: APTT 174.5 H* Radiography Diagnostic Testing: Radiology Impression Chest X-Ray 05/21/25 02:05 IMPRESSION: Increased mild central pulmonary venous congestion. Unchanged emphysema. Mild increase in bilateral basilar atelectatic pulmonary changes. Reading Location: [place] [address] Rhythm Strip Rhythm Strip: Atrial flutter Rate: 153 Ectopy: None Physical Exam Const alert, oriented x3 and no apparent distress General Appearance: cooperative HEENT normocephalic, head/scalp atraumatic, moist oral mucous membranes and oropharynxnormal Eyes EOMs intact bilaterally Neck no lymphadenopathy and supple Lymph Lymphatic: no lymphadenopathy noted Resp normal respiratory effort, normal air movement and clear to auscultation bilaterally Cardio regular rate, regular rhythm, S1 normal heart sound and S2 normal heart sound GI normal to inspection, nondistended, normoactive bowel sounds, soft to palpation,non-tender and non-distended Extremity normal capillary refill, no clubbing, cyanosis or edema and no calf tenderness General Extremity: no tenderness to palpation of joints or extremities Skin General Skin Exam: no breakdown Neuro CN's II-XII intact bilaterally, no focal motor deficits and no sensory deficits noted Motor Exam: general weakness Psych thought process normal and cooperative Appearance: appropriate Assessment & Plan Assessment/Plan (1) Non-ST elevation NH (NSTEMI): PLAN: Plan #Nonstemi * patient admitted with a complaint of chest pain. * initial troponin was elevated and trended upwards. It was initially 93, then went up to 222 then >600 * EKG showed no acute ST changes * on heparin drip and nitro drip * for cardiac cath tomorrow. PO aspirin and high intensity statin. * 2D echo showed EF of 40-45%, with EF reduced from previous echo * #Acute exacerbation of HFpEF * pro BNP is 3942, with CXR showing evidence of fluid overload with mild central pulmonary venous congestion and unchanged emphysema. * being diuresed with iV lasix. * losartan on hold due to impaired kidney function. * 2D echo as above. * #CKD IIIa * Cr is 1.8. This is around the baseline Cr. * Cardiology recommends nephrology consult to evaluate due to the dye he will be receiving tomorrow during cardiac cath. * #Hypothyroidism: * TSH was markedly elevated at 9.79. * free T3 and T4 are WNL. Synthroid increased to 50mcg daily. * #History of abdominal aortic aneurysm: s/p repair in 03/2023. 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 Follow vascular surgery on outpatient basis. #Hypertension: on losartan, nifedipine, carvedilol and hydralazine. #Hyperlipidemia: on ezetimibe and bempedoic acid. #History of right carotid artery stenosis: s/p right carotid endarterectomy. On aspirin and high intensity statin. #History of BPH: on doxazosin. #Osteoathritis: s/p lumbar laminectomy x 2: stable. On acetaminophen prn. DVT prophylaxis: on heparin drip. Charges/Coding Visit Charges Inpatient E&M: 13364 Subs Hosp L2 05/21/25 1517 <Electronically signed by Olamide Morales MD> Olamide Morales MD Cosigner Signature (if applicable): CC: ~ Signed [facility] Work Phone: [phone] [phone] Progress note [facility] Medical Records Department [address] [place] [address] Progress Note 05/21/25 1132 MR#: [id number] Acct: [id number] Name: LEANA CAMEJO Rep #:[id number] : 1940 85 From: Olamide Morales MD PCP: Dr. Dallas Reed MD Status:A DM IN Location: ICU CVICU20 1-1 Subjective Subjective Patient seen and examined. His and grandson were by his bedside. He denied any chest pain, shortness of breath, palpitations, nausea or vomiting or any other symptoms. Review of systems otherwise negative. He has not had any more chest pain since admission. Review of systems otherwise negative. Objective Data Objective Data Vital Signs: Vital Signs Temp Pulse Resp BP Pulse Ox O2 Del Method 97.9 F 77 18 108/64 99 Room Air 05/21/25 10:00 05/21/25 11:00 05/21/25 11:00 05/21/25 11:00 05/21/25 11:00 05/21/25 11:00 Oxygen Delivery Method Room Air Weight: 139 lb 12.369 oz Body Mass Index (BMI) 21.2 Intake & Output: Intake and Output for Last 24 Hours 05/19/25 05/20/25 05/21/25 23:59 23:59 23:59 Intake Total 591.33 / 591.33 Output Total 625 / 625 Balance -33.67 / -33.67 Lab / Micro Data 05/21/25 01:25 05/21/25 01:25 Labs: Laboratory Results - last 24 hr 05/21/25 01:25: WBC 4.5, RBC 3.58 L, Hgb 10.5 L, Hct 32.6 L, MCV 91.1, MCH 29.3,MCHC 32.2, RDW Std Deviation 49.6 H, RDW Coeff of Erma 14.7 H, Plt Count 92 L, MPV 11.2, Immature Gran % (Auto) 0.700, Neut % (Auto) 73.0 H, Lymph % (Auto) 16.2 L, [place] % (Auto) 5.8, Eos % (Auto) 3.6, Baso % (Auto) 0.7, Absolute Neuts (auto) 3.3, Absolute Lymphs (auto) 0.72 L, Nucleated RBC % 0, PT 16.0 H, INR 1.3, APTT 45.1 H, Sodium 140, Potassium 4.2, Chloride 104, Carbon Dioxide 21.4, Anion Gap 15, BUN 46 H, Creatinine 1.86 H, Estim Creat Clear Calc 26.20 L, Est GFR (MDRD) Non-Af 35 L, BUN/Creatinine Ratio 24.7H, Glucose 115 H, Calcium 9.2,Magnesium 2.1, Troponin T High Sens 93 H*, NT pro BNP II 3942 H, TSH 9.790 H 05/21/25 03:35: Troponin T Hi Sens 2 Hr 222 H*, Free T4 1.00 05/21/25 03:55: Phosphorus 2.5 L, Triglycerides 46, Cholesterol 114, LDL Cholesterol, Calc 61, VLDLCholesterol 9, HDL Cholesterol 44, Cholesterol/HDL Ratio 2.61, Free T3 pg/dL 2.2 05/21/25 06:00: Troponin T Hi Sens 4Hr 671 H* 05/21/25 07:55: Urine Color Yellow, Urine Clarity Clear, Urine pH 7.0, Ur Specific Cammal 1.010, Urine Protein 15 H, Urine Glucose (UA) Normal, Urine Ketones Negative, Urine Occult Blood Negative, Urine Nitrite Negative, Urine Bilirubin Negative, Urine Urobilinogen Normal, Ur Leukocyte Esterase Negative, Urine RBC 0 SEEN, Urine WBC 0 SEEN, Ur Squamous Epith Cells 0 SEEN, Urine Bacteria 0 SEEN, Urine Mucus 0 SEEN 05/21/25 09:05: APTT 174.5 H* Radiography Diagnostic Testing: Radiology Impression Chest X-Ray 05/21/25 02:05 IMPRESSION: Increased mild central pulmonary venous congestion. Unchanged emphysema. Mild increase in bilateral basilar atelectatic pulmonary changes. Reading Location: [place] [address] Rhythm Strip Rhythm Strip: Atrial flutter Rate: 153 Ectopy: None Physical Exam Const alert, oriented x3 and no apparent distress General Appearance: cooperative HEENT normocephalic, head/scalp atraumatic, moist oral mucous membranes and oropharynxnormal Eyes EOMs intact bilaterally Neck no lymphadenopathy and supple Lymph Lymphatic: no lymphadenopathy noted Resp normal respiratory effort, normal air movement and clear to auscultation bilaterally Cardio regular rate, regular rhythm, S1 normal heart sound and S2 normal heart sound GI normal to inspection, nondistended, normoactive bowel sounds, soft to palpation,non-tender and non-distended Extremity normal capillary refill, no clubbing, cyanosis or edema and no calf tenderness General Extremity: no tenderness to palpation of joints or extremities Skin General Skin Exam: no breakdown Neuro CN's II-XII intact bilaterally, no focal motor deficits and no sensory deficits noted Motor Exam: general weakness Psych thought process normal and cooperative Appearance: appropriate Assessment & Plan Assessment/Plan (1) Non-ST elevation NH (NSTEMI): PLAN: Plan #Nonstemi * patient admitted with a complaint of chest pain. * initial troponin was elevated and trended upwards. It was initially 93, then went up to 222 then >600 * EKG showed no acute ST changes * on heparin drip and nitro drip * for cardiac cath tomorrow. PO aspirin and high intensity statin. * 2D echo showed EF of 40-45%, with EF reduced from previous echo * #Acute exacerbation of HFpEF * pro BNP is 3942, with CXR showing evidence of fluid overload with mild central pulmonary venous congestion and unchanged emphysema. * being diuresed with iV lasix. * losartan on hold due to impaired kidney function. * 2D echo as above. * #CKD IIIa * Cr is 1.8. This is around the baseline Cr. * Cardiology recommends nephrology consult to evaluate due to the dye he will be receiving tomorrowduring cardiac cath. * #Hypothyroidism: * TSH was markedly elevated at 9.79. * free T3 and T4 are WNL. Synthroid increased to 50mcg daily. * #History of abdominal aortic aneurysm: s/p repair in 03/2023. 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 Follow vascular surgery on outpatient basis. #Hypertension: on losartan, nifedipine, carvedilol and hydralazine. #Hyperlipidemia: on ezetimibe and bempedoic acid. #History of right carotid artery stenosis: s/p right carotid endarterectomy. On aspirin and high intensity statin. #History of BPH: on doxazosin. #Osteoathritis: s/p lumbar laminectomy x 2: stable. On acetaminophen prn. DVT prophylaxis: on heparin drip. Charges/Coding Visit Charges Inpatient E&M: 99896 Subs Hosp L2 05/21/25 1648 Olamide Morales MD Cosigner Signature (if applicable): CC: ~ Signed [facility]09-01-2025 Consult note Author Lorraine Mcdowell [facility] Note Date/Time May 21, 2025 11:00am [facility] Medical Records Department [address] [place] [address] Consultation - Cardiology 05/21/25 1049 MR#: [id number] Acct: [id number] Name: LEANA CAMEJO Rep #:[id number] : 1940 85 From: Lorraine Mcdowell MD PCP: Dr. Dallas Reed MD Status:A DM IN Location: ICU CVICU20 1-1 Assessment & Plan Assessment/Plan (1) Essential hypertension: (2) Stenosis of right internal carotid artery: (3) Abdominal aortic 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: QUALIFIERS: Abdominal aorta location: infrarenal aorta Qualified Code(s): I71.43 - Infrarenal abdominal aortic aneurysm, without rupture (4) 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: (5) Chronic renal failure, stage 3 (moderate): QUALIFIERS: Chronic kidney disease stage 3 subtype: stage 3a (GFR 45-59) Qualified Code(s): N18.31 - Chronic kidney disease, stage 3a (6) Type II endoleak of aortic graft: (7) Non-ST elevation NH (NSTEMI): (8) Elevated TSH: PLAN: 85-year-old patient with multiple medical problems. Presented with symptoms of chest pressure last night to the ED here at [facility]. Patient had a history of hypertension, hyperlipidemia, hypothyroidism, former tobacco abuse also had a history of chronic diastolic heart failure history of abdominal aortic aneurysm s/p repair which was done in March 2023. History of carotid artery disease with right carotid endarterectomy. Diverticulosis with history of anemia. Has type II endoleak of aortic graft and he followed here by the vascular team just has been treated endovascular at the [facility]. Has right carotid endarterectomy with a history of TIA, CKD stage III AA and history of hypothyroidism with elevated TSH level on this admission. Patient presented to the ED he had narrow QRS complex tachycardia converted to sinus rhythm And his symptoms of chest pain resolved since then he does not have any further episode of chest pain he had change in the EKG mainly in the inferior lead with ST depression noted in the lateral lead. And also he had elevated high sensitive troponins. Started on treatment in the intensive care unit with heparin aspirin statin monitoring electrolytes and renal function Echocardiogram today showed EF in the range of 40-45% with inferior hypokinesia. No significant valve abnormality noted. Cardiac care plan; 1. Will continue medical treatment patient is stable clinically does not have any active chest pain. 2. I requested nephrology consultation patient has DALTON on CKD. Creatinine today is 1.86. 3. Discussed plan of cardiac catheterization tomorrow. 4. New onset atrial flutter converted to sinus rhythm to be addressed followingcardiac catheterization And to consider long-term OAC, based on [id number] score. Answer all question related to cardiac catheterization to the family at bedside and grandson patient understand and would like to proceed with cardiac cathtomorrow. Lorraine Mcdowell MD,[facility] therapeutic recreation leader HPI Consult Data Date of Consult: 05/21/25 HPI Narrative Reason for Consultation: Non-STEMI/atrial flutter with 2-1 AV block. HPI Narrative: LEANA CAMEJO, is a 85 M who presents [facility] Medical History Spigelian hernia Wears hearing aid [...] DAILY sup plement 02/14/20 05/23/24 History capsule doxazosin 8 mg tablet 8 mg PO QHS prostate 4 01/10/25 History hydralazine 100 mg tablet 100 mg PO TID blood pressure 05/23/24 02/14/25 History magnesium oxide 400 mg (241.3 mg 400 mg PO DAILY suppl ement 05/23/24 05/21/24 History magnesium) tablet bempedoic acid 180 mg tablet 180 mg PO DAILY 07/11/24 01/12/25 History (Nexletol) ezetimibe 10 mg tablet 10 mg PO DAILY 07/11/2401/19 History levothyroxine 25 mcg tablet 25 mcg PO DAILY 11/28/24 0 02/14/25 History cholecalciferol (vitamin D3) 125 125 mcg PO DAILY 12/20 02/11 Unknown History mcg (5,000 unit) tablet (Vitamin D3) ferrous sulfate 325 mg (65 mg 325 mg PO DAILY 01/12/25 01/12/25 History iron) tablet (Feosol) nifedipine 60 mg tablet,extended 60 mg PO DAILY 02/14/25 History release furosemide 40 mg tablet (Lasix) 40 mg PO DAILY PRN SOB #14 tabs 05/10/25 Unknown Rx carvedilol 6.25 mg tablet 6.25 mg PO BID 05/21/25 Unkn own History furosemide 20 mg tablet 20 mg PO DAILY 05/21/25 Unkn own History Allergy/AdvReac Type Severity Reaction Status Date / Time lisinopril Allergy Intermediate Rash Verified 05/21/25 01:22 atorvastatin calcium (From Allergy Other Verified 05/21/25 01:22 Lipitor) clonidine Allergy Unknown Verified 05/21/25 01:22 rosuvastatin calcium (From Allergy Other Verified 05/21/25 01:22 Crestor) Qfumopc-MVS-DdD Reductase Allergy Other Verified 05/21/25 01:22 Inhibitor (Tqoblzn-Esf-Buj Reductase Inhibitor) Family History Father Lung cancer Liver cancer Mother Oral cancer Surgical History S/P spigelian hernia repair, follow-up exam S/P AAA repair (~02/2025) History of right-sided carotid endarterectomy Hx of [...] Yes Type: coffee Number of servings: 2 Physical Exam Cardio Cardio Narrative: Patient seen and evaluated at bedside compliance monitor showed normal sinus Cardiac exam S1-S2 is regular Chest exam diminished air entry bilateral with bilateral inspiratory rales Examination lower extremity no lower extremity edema. Objective Data Vital Signs: Vital Signs Temp Pulse Resp BP Pulse Ox O2 Del Method 98.1 F 72 13 115/65 98 Room Air 05/21/25 05:00 05/21/25 09:00 05/21/25 09:00 05/21/25 09:00 05/21/25 09:00 05/21/25 09:00 Oxygen Delivery Method Room Air Weight: 139 lb 12.369 oz Body Mass Index (BMI) 21.2 Intake & Output: Intake and Output for Last 24 Hours 05/19/25 05/20/25 05/21/25 23:59 23:59 23:59 Intake Total 591.33 / 591.33 Output Total 625 / 625 Balance -33.67 / -33.67 Lab / Micro Data 05/21/25 01:25 05/21/25 01:25 Labs: Laboratory Results - last 24 hr 05/21/25 01:25: WBC 4.5, RBC 3.58 L, Hgb 10.5 L, Hct 32.6 L, MCV 91.1, MCH 29.3,MCHC 32.2, RDW Std Deviation 49.6 H, RDW Coeff of Erma 14.7 H, Plt Count 92 L, MPV 11.2, Immature Gran % (Auto) 0.700, Neut % (Auto) 73.0 H, Lymph % (Auto) 16.2 L, [place] % (Auto) 5.8, Eos % (Auto) 3.6, Baso % (Auto) 0.7, Absolute Neuts (auto) 3.3, Absolute Lymphs (auto) 0.72 L, Nucleated RBC % 0, PT 16.0 H, INR 1.3, APTT 45.1 H, Sodium 140, Potassium 4.2, Chloride 104, Carbon Dioxide 21.4, Anion Gap 15, BUN 46 H, Creatinine 1.86 H, Estim Creat Clear Calc 26.20 L, Est GFR (MDRD) Non-Af 35 L, BUN/Creatinine Ratio 24.7 H, Glucose 115 H, Calcium 9.2,Magnesium 2.1, Troponin T High Sens 93 H*, NT pro BNP II 3942 H, TSH 9.790 H 05/21/25 03:35: Troponin T Hi Sens 2 Hr 222 H*, Free T4 1.00 05/21/25 03:55: Phosphorus 2.5 L, Triglycerides 46, Cholesterol 114, LDL Cholesterol, Calc 61, VLDL Cholesterol 9, HDL Cholesterol 44, Cholesterol/HDL Ratio 2.61, Free T3 pg/dL 2.2 05/21/25 06:00: Troponin T Hi Sens 4Hr 671 H* 05/21/25 07:55: Urine Color Yellow, Urine Clarity Clear, Urine pH 7.0, Ur Specific Cammal 1.010, Urine Protein 15 H, Urine Glucose (UA) Normal, Urine Ketones Negative, Urine Occult Blood Negative, Urine Nitrite Negative, Urine Bilirubin Negative, Urine Urobilinogen Normal, Ur Leukocyte Esterase Negative, Urine RBC 0 SEEN, Urine WBC 0 SEEN, Ur Squamous Epith Cells 0 SEEN, Urine Bacteria 0 SEEN, Urine Mucus 0 SEEN 05/21/25 09:05: APTT 174.5 H* Rhythm Strip Rhythm Strip: Atrial flutter Rate: 153 Ectopy: None Cardiology Labs/Tests 05/21/25 01:25: WBC 4.5, RBC 3.58 L, Hgb 10.5 L, Hct 32.6 L, MCV 91.1, MCH 29.3,MCHC 32.2, Plt Count 92 L, MPV 11.2, Immature Gran % (Auto) 0.700, Neut % (Auto)73.0 H, Lymph % (Auto) 16.2 L, [place] % (Auto) 5.8, Eos % (Auto) 3.6, Baso % (Auto) 0.7, Absolute Neuts (auto) 3.3, Nucleated RBC % 0, PT 16.0 H, INR 1.3, APTT 45.1 H, Sodium 140, Potassium 4.2, Chloride 104, Carbon Dioxide 21.4, Anion Gap 15, BUN 46 H, Creatinine 1.86 H, Est GFR (MDRD) Non-Af 35 L, BUN/Creatinine Ratio 24.7 H, Glucose 115 H, Calcium 9.2, Magnesium 2.1 05/21/25 03:55: Phosphorus 2.5 L, Triglycerides 46, Cholesterol 114, VLDL Cholesterol 9, HDL Cholesterol 44, Cholesterol/HDL Ratio 2.61 05/21/25 07:55: Urine Color Yellow, Urine Clarity Clear, Urine pH 7.0, Ur Specific Cammal 1.010, Urine Protein 15 H, Urine Glucose (UA) Normal, Urine Ketones Negative, Urine Occult Blood Negative, Urine Nitrite Negative, Urine Bilirubin Negative, Urine Urobilinogen Normal, Ur Leukocyte Esterase Negative, Urine RBC 0 SEEN, Urine WBC 0 SEEN 05/21/25 09:05: APTT 174.5 H* Rhythm: EKG: ECHO: Stress Test: Cardiac Cath: PCI: CT Surgery: Holter monitor: EPS: PPM: CXR: Chest CT Scan: Radiography Diagnostic Testing: Radiology Impression Chest X-Ray 05/21/25 02:05 IMPRESSION: Increased mild central pulmonary venous congestion. Unchanged emphysema. Mild increase in bilateral basilar atelectatic pulmonary changes. Reading Location: [address] Risk Score for UA/STEMI Assesmment (YES = 1) Risk Stratification Applicable: No 05/21/25 1100 <Electronically signed by Lorraine Mcdowell MD> Cosigner Signature (if applicable): CC: Dr. Dallas Reed MD~ Signed [facility] Work Phone: 1(422) 219-216809-01-2025 Consult note [facility] Medical Records Department [address] [place] [address] Consultation - Cardiology 05/21/25 1049 MR#: [id number] Acct: [id number] Name: LEANA CAMEJO Rep #:[id number] : 1940 85 From: Lorraine Mcdowell MD PCP: Dr. Dallas Reed MD Status:A DM IN Location: ICU CVICU20 1-1 Assessment & Plan Assessment/Plan (1) Essential hypertension: (2) Stenosis of right internal carotid artery: (3) Abdominal aortic 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: QUALIFIERS: Abdominal aorta location: infrarenal aorta Qualified Code(s): I71.43 - Infrarenal abdominal aortic aneurysm, without rupture (4) 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: (5) Chronic renal failure, stage 3 (moderate): QUALIFIERS: Chronic kidney disease stage 3 subtype: stage 3a (GFR 45-59) Qualified Code(s): N18.31 - Chronic kidney disease, stage 3a (6) Type II endoleak of aortic graft: (7) Non-ST elevation NH (NSTEMI): (8) Elevated TSH: PLAN: 85-year-old patient with multiple medical problems. Presented with symptoms of chest pressure last night to the ED here at [facility]. Patient had a history of hypertension, hyperlipidemia, hypothyroidism, former tobacco abuse also had a history of chronic diastolic heart failure history of abdominal aortic aneurysm s/p repair whichwas done in March 2023. History of carotid artery disease with right carotid endarterectomy. Diverticulosis with history of anemia. Has type II endoleak of aortic graft and he followed here by the vascular team just has been treated endovascular at the [facility]. Has right carotid endarterectomy with a history of TIA, CKD stage III AA and history of hypothyroidism with elevated TSH level on this admission. Patient presented to the ED he had narrow QRS complex tachycardia converted to sinus rhythm And his symptoms of chest pain resolved since then he does not have any further episode of chest pain he had change in the EKG mainly in the inferior lead with ST depression noted in the lateral lead. And also he had elevated high sensitive troponins. Started on treatment in the intensive care unit with heparin aspirin statin monitoring electrolytes and renal function Echocardiogram today showed EF in the range of 40-45% with inferior hypokinesia. No significant valve abnormality noted. Cardiac care plan; 1. Will continue medical treatment patient is stable clinically does not have any active chest pain. 2. I requested nephrology consultation patient has DALTON on CKD. Creatinine today is 1.86. 3. Discussed plan of cardiac catheterization tomorrow. 4. New onset atrial flutter converted to sinus rhythm to be addressed followingcardiac catheterization And to consider long-term OAC, based on [id number] score. Answer all question related to cardiac catheterization to the family at bedside and grandson patient understand and would like to proceed with cardiac cathtomorrow. Lorraine Mcdowell MD,[facility] therapeutic recreation leader HPI Consult Data Date of Consult: 05/21/25 HPI Narrative Reason for Consultation: Non-STEMI/atrial flutter with 2-1 AV block. HPI Narrative: LEANA CAMEJO, is a 85 M who presents [facility] Medical History Spigelian hernia Wears hearing aid [...] DAILY sup plement 02/14/20 05/23/24 History capsule doxazosin 8 mg tablet 8 mg PO QHS prostate 4 01/10/25 History hydralazine 100 mg tablet 100 mg PO TID blood pressure 05/23/24 02/14/25 History magnesium oxide 400 mg (241.3 mg 400 mg PO DAILY suppl ement 05/23/24 05/21/24 History magnesium) tablet bempedoic acid 180 mg tablet 180 mg PO DAILY 07/11/24 01/12/25 History (Nexletol) ezetimibe 10 mg tablet 10 mg PO DAILY 07/11/2401/19 History levothyroxine 25 mcg tablet 25 mcg PO DAILY 11/28/24 0 02/14/25 History cholecalciferol (vitamin D3) 125 125 mcg PO DAILY 12/20 02/11 Unknown History mcg (5,000 unit) tablet (Vitamin D3) ferrous sulfate 325 mg (65 mg 325 mg PO DAILY 01/12/25 01/12/25 History iron) tablet (Feosol) nifedipine 60 mg tablet,extended 60 mg PO DAILY 02/14/25 History release furosemide 40 mg tablet (Lasix) 40 mg PO DAILY PRN SOB #14 tabs 05/10/25 Unknown Rx carvedilol 6.25 mg tablet 6.25 mg PO BID 05/21/25 Unkn own History furosemide 20 mg tablet 20 mg PO DAILY 05/21/25 Unkn own History Allergy/AdvReac Type Severity Reaction Status Date / Time lisinopril Allergy Intermediate Rash Verified 05/21/25 01:22 atorvastatin calcium (From Allergy Other Verified 05/21/25 01:22 Lipitor) clonidine Allergy Unknown Verified 05/21/25 01:22 rosuvastatin calcium (From Allergy Other Verified 05/21/25 01:22 Crestor) Uqkdqrq-RAL-OdD Reductase Allergy Other Verified 05/21/25 01:22 Inhibitor (Fstyzcd-Emh-Wax Reductase Inhibitor) Family History Father Lung cancer Liver cancer Mother Oral cancer Surgical History S/P spigelian hernia repair, follow-up exam S/P AAA repair (~02/2025) History of right-sided carotid endarterectomy Hx of [...] Yes Type: coffee Number of servings: 2 Physical Exam Cardio Cardio Narrative: Patient seen and evaluated at bedside compliance monitor showed normal sinus Cardiac exam S1-S2 is regular Chest exam diminished air entry bilateral with bilateral inspiratory rales Examination lower extremity no lower extremity edema. Objective Data Vital Signs: Vital Signs Temp Pulse Resp BP Pulse Ox O2 Del Method 98.1 F 72 13 115/65 98 Room Air 05/21/25 05:00 05/21/25 09:00 05/21/25 09:00 05/21/25 09:00 05/21/25 09:00 05/21/25 09:00 Oxygen Delivery Method Room Air Weight: 139 lb 12.369 oz Body Mass Index (BMI) 21.2 Intake & Output: Intake and Output for Last 24 Hours 05/19/25 05/20/25 05/21/25 23:59 23:59 23:59 Intake Total 591.33 / 591.33 Output Total 625 / 625 Balance -33.67 / -33.67 Lab / Micro Data 05/21/25 01:25 05/21/25 01:25 Labs: Laboratory Results - last 24 hr 05/21/25:25: WBC 4.5, RBC 3.58 L, Hgb 10.5 L, Hct 32.6 L, MCV 91.1, MCH 29.3,MCHC 32.2, RDW Std Deviation 49.6 H, RDW Coeff of Erma 14.7 H, Plt Count 92 L, MPV 11.2, Immature Gran % (Auto) 0.700, Neut % (Auto) 73.0 H, Lymph % (Auto) 16.2 L, [place] % (Auto) 5.8, Eos % (Auto) 3.6, Baso % (Auto) 0.7, Absolute Neuts (auto) 3.3, Absolute Lymphs (auto) 0.72 L, Nucleated RBC % 0, PT 16.0 H, INR 1.3, APTT 45.1 H, Sodium 140, Potassium 4.2, Chloride 104, Carbon Dioxide 21.4, Anion Gap 15, BUN 46 H, Creatinine 1.86 H, Estim Creat Clear Calc 26.20 L, Est GFR (MDRD) Non-Af 35 L, BUN/Creatinine Ratio 24.7H, Glucose 115 H, Calcium 9.2,Magnesium 2.1, Troponin T High Sens 93 H*, NT pro BNP II 3942 H, TSH 9.790 H 05/21/25 03:35: Troponin T Hi Sens 2 Hr 222 H*, Free T4 1.00 05/21/25 03:55: Phosphorus 2.5 L, Triglycerides 46, Cholesterol 114, LDL Cholesterol, Calc 61, VLDLCholesterol 9, HDL Cholesterol 44, Cholesterol/HDL Ratio 2.61, Free T3 pg/dL 2.2 05/21/25 06:00: Troponin T Hi Sens 4Hr 671 H* 05/21/25 07:55: Urine Color Yellow, Urine Clarity Clear, Urine pH 7.0, Ur Specific Cammal 1.010, Urine Protein 15 H, Urine Glucose (UA) Normal, Urine Ketones Negative, Urine Occult Blood Negative, Urine Nitrite Negative, Urine Bilirubin Negative, Urine Urobilinogen Normal, Ur Leukocyte Esterase Negative, Urine RBC 0 SEEN, Urine WBC 0 SEEN, Ur Squamous Epith Cells 0 SEEN, Urine Bacteria 0 SEEN, Urine Mucus 0 SEEN 05/21/25 09:05: APTT 174.5 H* Rhythm Strip Rhythm Strip: Atrial flutter Rate: 153 Ectopy: None Cardiology Labs/Tests 05/21/25 01:25: WBC 4.5, RBC 3.58 L, Hgb 10.5 L, Hct 32.6 L, MCV 91.1, MCH 29.3,MCHC 32.2, Plt Count 92 L, MPV 11.2, Immature Gran % (Auto) 0.700, Neut % (Auto)73.0 H, Lymph % (Auto) 16.2 L, [place] % (Auto) 5.8, Eos % (Auto) 3.6, Baso % (Auto) 0.7, Absolute Neuts (auto) 3.3, Nucleated RBC % 0, PT 16.0 H, INR 1.3, APTT 45.1 H, Sodium 140, Potassium 4.2, Chloride 104, Carbon Dioxide 21.4, Anion Gap 15, BUN 46 H, Creatinine 1.86 H, Est GFR (MDRD) Non-Af 35 L, BUN/Creatinine Ratio 24.7 H, Glucose 115H, Calcium 9.2, Magnesium 2.1 05/21/25 03:55: Phosphorus 2.5 L, Triglycerides 46, Cholesterol 114, VLDL Cholesterol 9, HDL Cholesterol 44, Cholesterol/HDL Ratio 2.61 05/21/25 07:55: Urine Color Yellow, Urine Clarity Clear, Urine pH 7.0, Ur Specific Camm[place] 1.010, Urine Protein 15 H, Urine Glucose (UA) Normal, Urine Ketones Negative, Urine Occult Blood Negative, Urine Nitrite Negative, Urine Bilirubin Negative, Urine Urobilinogen Normal, Ur Leukocyte Esterase Negative, Urine RBC 0 SEEN, Urine WBC 0 SEEN 05/21/25 09:05: APTT 174.5 H* Rhythm: EKG: ECHO: Stress Test: Cardiac Cath: PCI: CT Surgery: Holter monitor: EPS: PPM: CXR: Chest CT Scan: Radiography Diagnostic Testing: Radiology Impression Chest X-Ray 05/21/25 02:05 IMPRESSION: Increased mild central pulmonary venous congestion. Unchanged emphysema. Mild increase in bilateral basilar atelectatic pulmonary changes. Reading Location: [place] [address] TONY Risk Score for UA/STEMI Assesmment (YES = 1) Risk Stratification Applicable: No 05/21/25 1100 Cosigner Signature (if applicable): CC: Dr. Dallas Reed MD~ Signed [facility]09-01-2025 History and physical note Author Cameron Portillo [facility] Note Date/Time May 21, 2025 5:05am [facility] Medical Records Department [address] [place] [address] H&P Exam - Hospitalist 05/21/25 0336 MR#: [id number] Acct: [id number] Name: LEANA CAMEJO Rep #:[id number] 15 : 1940 85 From: Cameron Freedman DO PCP: Dr. Dallas Reed MD Status:A DM IN Location: ICU CVICU20 1-1 HPI - General General Date of Admission: 05/21/25 Date of Service: 05/21/25 Chief Complaint: Chest Pain. 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 Hawk of vascular surgery, history ofstenosis of Right internal carotid artery; s/p Right CEA, history of TIA (05/2024), CKD; stage ~IIIa, MING; on ferrous sulfate, history of diverticulosis, history of IBS, BPH; on doxazosin and OA; with lumbar disc disease s/p lumbar laminectomy x 2 who presents to [facility] ER complaining of chest pain. Mr. Camejo reports his symptoms began when he got out of bed on the evening of May 20, 2025 at approximately 23:30 hours feeling that he could not breathe. He admits to associated chest pain that was substernal, pressure-like, severe and nonradiating with nothing seeming to make the pain better or worse and patient feel like he was carrying all. He then tried to sit up and walk around with persistent shortness of breath so he took an antacid thinking his symptoms may have been due to indigestion, but when this did not relieve his symptoms he decided to come in for further evaluation and treatment. He states he was feeling fine when he went to bed and he denies recent illness or medication changes. He also denies associated fever, chills, abdominal pain, nausea, vomiting, diarrhea, constipation, dysuria, hematuria, headache or rash. In the ER he was initially noted to have persistent tachyarrhythmia that was regular at ~150 bpm which ER physician suspected was due to Atrial Flutter; withRVR with corresponding elevated initial troponin T of 93 ng/L worrisome for superimposed non-ST elevation NH vs acute cardiac stain related to sustained tachyarrhythmia with AE of Chronic Diastolic CHF; with preserved LVEF with elevated NT pro-BNP II of 3,942 pg/mL present on admission with CXR that revealed increased mild central pulmonary venous congestion with unchanged emphysema and mild increase in bibasilar atelectatic pulmonary changes in addition to laboratory evidence of mild DALTON; in the setting of CKD stage ~IIIa with elevated serum creatinine of 1.86 mg/dL with a eGFR of 35 mL/min (up from 1.53 mg/dL with eGFR down from 44 L/min on May 10, 2025) with an incidentallynoted elevated TSH of 9.79 present on admission. He was then admitted to the PCU for ongoing care for status expected to extend beyond 2 midnights. [facility] Medical History Spigelian hernia Wears hearing aid [...] DAILY sup plement 02/14/20 05/23/24 History capsule doxazosin 8 mg tablet 8 mg PO QHS prostate 4 01/10/25 History hydralazine 100 mg tablet 100 mg PO TID blood pressure 05/23/24 02/14/25 History magnesium oxide 400 mg (241.3 mg 400 mg PO DAILY suppl ement 05/23/24 05/21/24 History magnesium) tablet bempedoic acid 180 mg tablet 180 mg PO DAILY 07/11/24 01/12/25 History (Nexletol) ezetimibe 10 mg tablet 10 mg PO DAILY 07/11/2401/19 History levothyroxine 25 mcg tablet 25 mcg PO DAILY 11/28/24 0 02/14/25 History cholecalciferol (vitamin D3) 125 125 mcg PO DAILY 12/20 02/11 Unknown History mcg (5,000 unit) tablet (Vitamin D3) ferrous sulfate 325 mg (65 mg 325 mg PO DAILY 01/12/25 01/12/25 History iron) tablet (Feosol) nifedipine 60 mg tablet,extended 60 mg PO DAILY 02/14/25 History release furosemide 40 mg tablet (Lasix) 40 mg PO DAILY PRN SOB #14 tabs 05/10/25 Unknown Rx carvedilol 6.25 mg tablet 6.25 mg PO BID 05/21/25 Unkn own History furosemide 20 mg tablet 20 mg PO DAILY 05/21/25 Unkn own History Allergy/AdvReac Type Severity Reaction Status Date / Time lisinopril Allergy Intermediate Rash Verified 05/21/25 01:22 atorvastatin calcium (From Allergy Other Verified 05/21/25 01:22 Lipitor) clonidine Allergy Unknown Verified 05/21/25 01:22 rosuvastatin calcium (From Allergy Other Verified 05/21/25 01:22 Crestor) Yvsycax-RWR-LnN Reductase Allergy Other Verified 05/21/25 01:22 Inhibitor (Znpmjaf-Jwi-Nlu Reductase Inhibitor) Family History Father Lung cancer Liver cancer Mother Oral cancer Surgical History S/P spigelian hernia repair, follow-up exam S/P AAA repair (~02/2025) History of right-sided carotid endarterectomy Hx of [...] coffee Number of servings: 2 ROS ROS Narrative Review of Systems: Constitutional: Patient denies fever or chills. Eyes: Patient denies changes in vision or discharge from eyes. ENT: Patient denies runny nose, sore throat or ear pain. Resp: Patient admits to shortness of breath but he denies cough. CV: Patient admits to chest pain with palpitations as per HPI. He denies lower extremity edema. GI: Patient denies abdominal pain, nausea, vomiting, diarrhea or constipation. : Patient denies dysuria or hematuria. MSK: Patient denies arthralgias or myalgias. Skin: Patient denies rash, abscess, wounds or jaundice. Psych: Patient denies symptoms of uncontrolled depression or anxiety. Neuro: Patient denies headache, paresthesias or focal neurologic deficits. Allergy: Patient denies lip swelling, tongue swelling or urticaria. Hematology: Patient denies easy bleeding or easy bruisability. Endocrinology: Patient denies polyuria, polydipsia, polyphagia or heat/cold intolerance. 14 point ROS otherwise negative except for positives noted above in HPI. Vital Signs Vital Signs Vital Signs: 05/21/25 01:21 05/21/25 01:31 05/21/25 01:54 Temperature 98.4 F Temperature Source Oral Pulse Rate 160 H 140 H Respiratory Rate 26 H 30 H Blood Pressure 141/102 H 138/99 H Blood Pressure Mean 115 112 Pulse Ox 98 100 Oxygen Delivery Method Room Air Room Air 05/21/25 01:56 05/21/25 03:00 Temperature Temperature Source Pulse Rate 87 82 Respiratory Rate 15 Blood Pressure 116/77 Blood Pressure Mean 90 Pulse Ox 96 Oxygen Delivery Method Room Air Weight Weight: 140 lb 10.479 oz Body Mass Index (BMI) 21.4 Physical Exam Const alert, oriented x3, no apparent distress and average body habitus Constitutional Narrative: Elderly gentleman who is nontoxic in appearance General Appearance: cooperative HEENT normocephalic, head/scalp atraumatic, hearing grossly normal bilaterally and moist oral mucous membranes Eyes PERRL, EOMs intact bilaterally and conjunctivae normal Neck no lymphadenopathy, supple and no JVD Resp normal respiratory effort, no retractions, no use of accessory muscles and clearto auscultation bilaterally Cardio regular rate and regular rhythm GI normal to inspection, nondistended, normoactive bowel sounds, soft to palpation,non-tender and non-distended Extremity normal to inspection, full ROM and no clubbing, cyanosis or edema Extremity Narrative: Patient has 2+ radial and dorsalis pedis pulses with no signs of edema. Skin Skin Narrative: Patient has evidence of rash, abscess, wounds or jaundice. Neuro oriented x3, CN's II-XII intact bilaterally, moves all extremities and no focal motor deficits Sensorium / Orientation: awake, alert, oriented to person, oriented to place andoriented to time Speech: speech normal Psych affect normal Results Medical Records Data Attestation: I reviewed the patient's medical records Lab / Micro Data Attestation: I reviewed the patient's lab results. 05/21/25 01:25 05/21/25 01:25 Labs: Laboratory Results - last 24 hr 05/21/25 01:25: WBC 4.5, RBC 3.58 L, Hgb 10.5 L, Hct 32.6 L, MCV 91.1, MCH 29.3,MCHC 32.2, RDW Std Deviation 49.6 H, RDW Coeff of Erma 14.7 H, Plt Count 92 L, MPV 11.2, Immature Gran % (Auto) 0.700, Neut % (Auto) 73.0 H, Lymph % (Auto) 16.2 L, [place] % (Auto) 5.8, Eos % (Auto) 3.6, Baso % (Auto) 0.7, Absolute Neuts (auto) 3.3, Absolute Lymphs (auto) 0.72 L, Nucleated RBC % 0, PT 16.0 H, INR 1.3, APTT 45.1 H, Sodium 140, Potassium 4.2, Chloride 104, Carbon Dioxide 21.4, Anion Gap 15, BUN 46 H, Creatinine 1.86 H, Estim Creat Clear Calc 26.20 L, Est GFR (MDRD) Non-Af 35 L, BUN/Creatinine Ratio 24.7 H, Glucose 115 H, Calcium 9.2,Magnesium 2.1, Troponin T High Sens 93 H*, TSH 9.790 H Imaging Radiology Impression Chest X-Ray 05/21/25 02:05 IMPRESSION: Increased mild central pulmonary venous congestion. Unchanged emphysema. Mild increase in bilateral basilar atelectatic pulmonary changes. Reading [facility] Assessment & Plan Assessment/Plan (1) Non-ST elevation NH (NSTEMI): (2) Acute exacerbation of chronic heart failure: (3) New onset atrial flutter: (4) DALTON (acute kidney injury): (5) Chronic renal failure, stage 3 (moderate): QUALIFIERS: Chronic kidney disease stage 3 subtype: stage 3a (GFR 45-59) Qualified Code(s): N18.31 - Chronic kidney disease, stage 3a (6) Elevated TSH: (7) Abdominal aortic 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: QUALIFIERS: Abdominal aorta location: infrarenal aorta Qualified Code(s): I71.43 - Infrarenal abdominal aortic aneurysm, without rupture (8) Type II endoleak of aortic graft: PLAN: Plan 1. Persistent tachyarrhythmia that was regular at ~150 bpm which ER physician suspected was due to Atrial Flutter; with RVR - Admit to ICU in case patient requires IV nitroglycerin as per cardiology recommendations and monitor for recurrent arrhythmia. Patient already started on IV heparin for #2. We will start BASA and continue carvedilol at current dose with normal blood pressure and no further chest discomfort after tachyarrhythmia resolved. 2. Elevated initial troponin T of 93 ng/L with second troponin T rising to 222 ng/L worrisome for superimposed non-ST elevation NH vs acute cardiac stain related to sustained tachyarrhythmia due to #1 - Continue IV heparin begun in the ER. Serialize troponin. Patient denies chest pain at this time. Give acetaminophen as needed for qgcw-na-altgcgon (level 1-5/10) pain or fever. Givemorphine IV as needed for severe (level 6-10/10) pain. [facility] in the a.m. for further recommendations with help appreciated in advance. 3. AE of chronic diastolic CHF; with preserved LVEF with elevated NT pro-BNP IIof 3,942 pg/mL present on admission with corresponding CXR that revealed increased mild central pulmonary venous congestion with unchanged emphysema and mild increase in bibasilar atelectatic pulmonary changes attributable to #1 & #2- Give furosemide IV and gently diurese in light of #4. We will avoid potentially nephrotoxic agents including losartan. Check CXR and NT pro-BNP II daily to follow trend. 4. Suspected Mild DALTON; in the setting of CKD stage ~IIIa with elevated serum creatinine of 1.86 mg/dL with a eGFR of 35 mL/min (up from 1.53 mg/dL with eGFR down from 44 L/min on May 10, 2025) complicating #1 - #3 - Give albumin 12.5 g IV once and recheck renal indices daily to follow trend to monitor response totreatment. 5. Incidentally noted elevated TSH of 9.79 present on admission compounding #1 - #4 in the setting of previously known hypothyroidism on levothyroxine 25 mcg daily - Check Free T3/T4 and increase levothyroxine to 50 mcg daily. 6. 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 Hawk of vascular surgery adding to the medical complexity of #1 - #5 - Noted. 7. Essential hypertension; on losartan, nifedipine, carvedilol twice daily, hydralazine 3 times daily and furosemide - Maintain home regimen but change furosemide to IV for #3 and hold losartan for #4. 8. Hyperlipidemia; on ezetimibe and bempedoic acid -Present therapy to continueplus check Lipid Profile in light of #2. 9. Former tobacco abuse - Noted. 10. History of stenosis of Right internal carotid artery; s/p Right CEA - Noted. 11. History of TIA (05/2024) - Noted with no evidence of recurrence at this time. 12. MING; on ferrous sulfate - Maintain iron supplement. 13. History of diverticulosis - Noted. 14. History of IBS - Stable. 15. BPH; on doxazosin - Continue doxazosin as before. 16. OA; with lumbar disc disease s/p lumbar laminectomy x 2 who - Give acetaminophen prn as outlined in #2. 17. DVT prophylaxis - Patient already on IV heparin for #2. Total time: Approximately (but not less than) 75 minutes. Charges/Coding Visit Charges Inpatient E&M: 29628 Init Hosp L3 05/21/25 0505 <Electronically signed by Cameron Solares DO> Cosigner Signature (if applicable): CC: Dr. Cameron Solares DO; Dr. Dallas Reed MD~ Signed [facility] Work Phone: [phone] 450-393109-01-2025 Discharge summary Author Veena [facility] Note Date/Time May 21, 2025 4:46am [facility] Medical Records Department [address] [place] [id number] Emergency Department Summary 05/21/25 MR#: [id number] Acct: [id number] Name: LEANA CAMEJO Rep #:[id number] : 1940 85 From: Veena Brewer PCP: Dr. Dallas Reed MD Status:A DM IN Location: ICU CVICU20 1-1 HPI History of Present Illness Chief Complaint: Chest Pain Informant: patient and spouse/S.O. Narrative Narrative: Patient is 85-year-old male with history of diastolic heart failure, abdominal aortic aneurysm, right internal carotid stenosis, hypertension, hyperlipidemia and type II endoleak of aortic graft presenting with chest pain and shortness ofbreath. Patient states he got out of bed around 1130 and felt he could not breathe. He states his chest was carrying all and he sat up and try to walk around. He was feeling short of breath. He denies any chest pain but does report a vague chest discomfort. He states he was in his normal state of healthwhen he went to bed tonight. He notes he recently was on a short course of diuretic per cardiology and they been making some medication changes. He tried to take an antacid thinking it was indigestion with this was not helpful. Came in for further evaluation. He denies any abdominal pain at this time. Denies any recent swelling of his legs. Denies any recent fever or chills. [facility] Medical History Spigelian hernia Wears [...] DAILY sup plement 02/14/20 05/23/24 History capsule doxazosin 8 mg tablet 8 mg PO QHS prostate 4 01/10/25 History hydralazine 100 mg tablet 100 mg PO TID blood pressure 05/23/24 02/14/25 History magnesium oxide 400 mg (241.3 mg 400 mg PO DAILY suppl ement 05/23/24 05/21/24 History magnesium) tablet bempedoic acid 180 mg tablet 180 mg PO DAILY 07/11/24 01/12/25 History (Nexletol) ezetimibe 10 mg tablet 10 mg PO DAILY 07/11/2401/19 History levothyroxine 25 mcg tablet 25 mcg PO DAILY 11/28/24 0 02/14/25 History cholecalciferol (vitamin D3) 125 125 mcg PO DAILY 12/20 02/11 Unknown History mcg (5,000 unit) tablet (Vitamin D3) ferrous sulfate 325 mg (65 mg 325 mg PO DAILY 01/12/25 01/12/25 History iron) tablet (Feosol) nifedipine 60 mg tablet,extended 60 mg PO DAILY 02/14/25 History release furosemide 40 mg tablet (Lasix) 40 mg PO DAILY PRN SOB #14 tabs 05/10/25 Unknown Rx carvedilol 6.25 mg tablet 6.25 mg PO BID 05/21/25 Unkn own History furosemide 20 mg tablet 20 mg PO DAILY 05/21/25 Unkn own History Allergy/AdvReac Type Severity Reaction Status Date / Time lisinopril Allergy Intermediate Rash Verified 05/21/25 01:22 atorvastatin calcium (From Allergy Other Verified 05/21/25 01:22 Lipitor) clonidine Allergy Unknown Verified 05/21/25 01:22 rosuvastatin calcium (From Allergy Other Verified 05/21/25 01:22 Crestor) Acqpkga-BXA-NtF Reductase Allergy Other Verified 05/21/25 01:22 Inhibitor (Dhemdru-Ucx-Cfq Reductase Inhibitor) Family History Father Lung cancer Liver cancer Mother Oral cancer Surgical History S/P spigelian hernia repair, follow-up exam S/P AAA repair (~02/2025) History of right-sided carotid endarterectomy Hx of [...] ROS ROS ED Constitutional Constitutional ED: Denies chills or fever(s) Cardiovascular Cardiovascular: Reports as per HPI and palpitations Respiratory/Chest Respiratory/Chest: Reports dyspnea; Denies cough Gastrointestinal Gastrointestinal: Denies abdominal pain, nausea or vomiting Musculoskeletal Musculoskeletal: Denies arthralgias or myalgias Neurologic Neurologic: Denies weakness Hematologic/Lymphatic Hematologic/Lymphatic: Denies easy bleeding or easy bruising EXAM Physical Exam Const Vital Signs: 05/21/25 01:21 05/21/25 01:31 05/21/25 01:54 Temperature 98.4 F Temperature Source Oral Pulse Rate 160 H 140 H Respiratory Rate 26 H 30 H Blood Pressure 141/102 H 138/99 H Blood Pressure Mean 115 112 Pulse Ox 98 100 Oxygen Delivery Method Room Air Room Air 05/21/25 01:56 05/21/25 03:00 05/21/25 03:38 Temperature 98 F Temperature Source Pulse Rate 87 82 85 Respiratory Rate 15 17 Blood Pressure 116/77 130/80 H Blood Pressure Mean 90 96 Pulse Ox 96 98 Oxygen Delivery Method Room Air Positive well nourished and well developed General Appearance ED: well developed and NAD HEENT Reports moist mucous membranes normocephalic Eyes PERRL Neck supple and no JVD Chest Wall inspection of chest normal and palpation of chest normal Resp normal respiratory effort and clear to auscultation bilaterally Cardio regular rhythm and no murmurs Rate: tachycardic GI normal to inspection, nondistended, normoactive bowel sounds and soft to palpation Extremity normal to inspection Extremity Narrative: 2+ radial and DP pulses General Extremety ED: Negative for edema General Extremity: Negative for edema Neuro oriented x3 Sensorium / Orientation: awake and alert Motor Exam: general weakness Psych mental status grossly normal Skin no rashes or lesions noted and no wounds Heart Score History: Moderately Suspicious ECG: Significant ST-Depression Age: >/= 65 years Risk Factors: >/= 3 Risk Factors or History of CAD Troponin: >/=3 x Normal Limit Score: 9 MDM MDM MDM Narrative Medical decision making narrative: Patient is an 85-year-old male presenting with sudden onset shortness of breath chest discomfort that woke him up from sleep. He has a history of vascular disease and as well as diastolic heart failure. Upon arrival patient's heart rate is 160. Differential includes atrial flutter, atrial fibrillation, ACS, electrolyte derangement, thyroid storm, pneumothorax, CHF exacerbation and pleural effusion. Patient given IV metoprolol as his pressure is normal if not slightly elevated and he does not require emergent cardioversion. He is mentating appropriately. During administration of the second bolus of 5 mg IV metoprolol he converts intonormal sinus rhythm. Repeat EKG does show significant ST abnormalities with ST elevation in lead III and ST depressions in lateral leads. He is now chest pain- free. Case is discussed with cardiology, Dr. Mcdowell, and he reviewed the EKG. He recommends starting the patient on heparin drip but agrees that this isnot a STEMI and likely more strain related to his recent arrhythmia. Plan to admit to the ICU however in case he goes back into his arrhythmia or has furtherchest pain he would require nitroglycerin drip. Plan for echocardiogram in the morning. EKG #3 has now returned to his baseline and shows chronic T wave inversions in V3 and V6 but no further ST depressions or elevations. Initial high-sensitivity troponin is 93. Lab work otherwise remarkable for CKD with a creatinine of 1.68, and elevated TSH of 9.79 and mild anemia with a hemoglobin of 10.5. Chest x-ray viewed by myself as well as radiology is consistent with worsening pulmonary vascular congestion and does show cardiomegaly. BNP is added on. Case is discussed with hospitalist for admission. History & Record Review Additional record(s) reviewed:: Prior outpatient record (Cardiology visit note-complaining of orthopnea-labs obtained. 40 mg Lasix (doubled) for 3 days.) and Prior labs (BNP 5468 on 05/10/2025) Lab Data Attestation: I reviewed the patient's lab results. Labs: Laboratory Results - last 24 hr 05/21/25 05/21/25 01:25 03:35 WBC 4.5 RBC 3.58 L Hgb 10.5 L Hct 32.6 L MCV 91.1 MCH 29.3 MCHC 32.2 RDW Std Deviation 49.6 H RDW Coeff of Erma 14.7 H Plt Count 92 L MPV 11.2 Immature Gran % (Auto) 0.700 Neut % (Auto) 73.0 H Lymph % (Auto) 16.2 L [place] % (Auto) 5.8 Eos % (Auto) 3.6 Baso % (Auto) 0.7 Absolute Neuts (auto) 3.3 Absolute Lymphs (auto) 0.72 L Nucleated RBC % 0 PT 16.0 H INR 1.3 APTT 45.1 H Sodium 140 Potassium 4.2 Chloride 104 Carbon Dioxide 21.4 Anion Gap 15 BUN 46 H Creatinine 1.86 H Estim Creat Clear Calc 26.20 L Est GFR (MDRD) Non-Af 35 L BUN/Creatinine Ratio 24.7 H Glucose 115 H Calcium 9.2 Magnesium 2.1 Troponin T High Sens 93 H* Troponin T Hi Sens 2 Hr 222 H* NT pro BNP II 3942 H TSH 9.790 H Radiography Diagnostic Testing: Clinical Impression(s) from Imaging Studies Chest X-Ray 05/21/25 02:05 IMPRESSION: Increased mild central pulmonary venous congestion. Unchanged emphysema. Mild increase in bilateral basilar atelectatic pulmonary changes. Reading Location: [place] [address] Rhythm Strip Rhythm Strip: Atrial flutter Rate: 153 Ectopy: None EKG Initial EKG: Attestation: I personally reviewed and interpreted this EKG as follows: Interpretation: Atrial Flutter Comments: Tachyarrhythmia at a rate of 153 bpm, suspect this is atrial flutter with 2-[address] depressions relatively diffusely with mild biphasic T wave changes of lead III consistent with subendocardial injury This is an acute change compared to prior EKG Prior: Changed 2: Attestation: I personally reviewed and interpreted this EKG as follows: Interpretation: Sinus Rhythm Comments: Normal sinus rhythm at a rate of 85 bpm Normal axis [address] elevation in lead III with ST depressions in 1, aVL, V4 through V6 These changes are more pronounced than when compared to patient's baseline EKGs. PVC present Prior: Changed 3: Attestation: I personally reviewed and interpreted this EKG as follows: Interpretation: Sinus Rhythm Comments: Normal sinus rhythm at a rate of 85 bpm with occasional PVCs Normal axis Normal intervals LVH with repolarization abnormality This is consistent patient's prior EKGs/based Management Discussion w/another healthcare provider: Hospitalist and Power Lineman Critical Care Time Critical Care Time: Yes Critical care time (excluding procedures): 30-74 minutes (40), Including time spent: (2 doses of IV metoprolol for arrhythmia), Discussing w/Patient &/or Family/Linseed Oil Press Tender, Discussing w/Consultants, Arranging Admission or Transfer andPerforming Direct Patient Care at Bedside Discharge Plan Dx/Rx/DC Orders Clinical Impression: New onset atrial flutter, Non-ST elevation NH (NSTEMI), Acute exacerbation of chronic heart failure Disposition Disposition: Acute Care Hospital [facility] Discharge Date/Time: 05/21/25 04:43 What to do if you have Problems For any increased pain, shortness of breath, bleeding, nausea or vomiting, chestpain, or any unexpected problems, contact your Primary Care Provider. Call [facility] ([phone]) or report to the closest Emergency Room. Call 911 if necessary. 05/21/25 0446 <Electronically signed by Veena Nelson DO> Cosigner Signature (if applicable): CC: Dr. Dallas Reed MD ~ Signed [facility] Work Phone: [phone] 235-501409-01-2025 History and physical note [facility] Medical Records Department [address] [place] [address] H&P Exam - Hospitalist 05/21/25 0336 MR#: [id number] Acct: [id number] Name: LEANA CAMEJO Rep #:[id number] 15 : 1940 85 From: Cameron Freedman DO PCP: Dr. Dallas Reed MD Status:A DM IN Location: ICU CVICU20 1-1 HPI - General General Date of Admission: 05/21/25 Date of Service: 05/21/25 Chief Complaint: Chest Pain. 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 Hawk of vascular surgery, history ofstenosis of Right internal carotid artery; s/p Right CEA, history of TIA (05/2024), CKD; stage ~IIIa, MING; on ferrous sulfate, history of diverticulosis, history of IBS, BPH; on doxazosin and OA; with lumbar disc disease s/p lumbar laminectomy x 2 who presents to [facility] ER complaining of chest pain. Mr. Camejo reports his symptoms began when he got out of bed on the evening of May 20, 2025 at approximately 23:30 hours feeling that he could not breathe. He admits to associated chest pain that was substernal, pressure-like, severe and nonradiating with nothing seeming to make the pain better or worse and patient feel like he was carrying all. He then tried to sit up and walk around with persistent shortness of breath so he took an antacid thinking his symptoms may have been due to indigestion, but when this did not relieve his symptoms he decided to come in for further evaluation and treatment. He states he was feeling fine when he went to bed and he denies recent illness or medication changes. He also denies associated fever, chills, abdominal pain, nausea, vomiting, diarrhea, constipation, dysuria, hematuria, headache or rash. In the ER he was initially noted to have persistent tachyarrhythmia that was regular at ~150 bpm which ER physician suspected was due to Atrial Flutter; withRVR with corresponding elevated initial troponin T of 93 ng/L worrisome for superimposed non-ST elevation NH vs acute cardiac stain related to sustained tachyarrhythmia with AE of Chronic Diastolic CHF; with preserved LVEF with elevated NT pro-BNP II of 3,942 pg/mL present on admission with CXR that revealed increased mild central pulmonary venous congestion with unchanged emphysema and mild increase in bibasilar atelectatic pulmonary changes in addition to laboratory evidence of mild DALTON; in the setting of CKD stage ~IIIa with elevated serum creatinine of 1.86 mg/dL with a eGFR of 35 mL/min (up from 1.53 mg/dL with eGFR down from 44 L/min on May 10, 2025) with an incidentallynotedelevated TSH of 9.79 present on admission. He was then admitted to the PCU for ongoing care for status expected to extend beyond 2 midnights. [facility] Medical History Spigelian hernia Wears hearing aid [...] DAILY sup plement 02/14/20 05/23/24 History capsule doxazosin 8 mg tablet 8 mg PO QHS prostate 4 01/10/25 History hydralazine 100 mg tablet 100 mg PO TID blood pressure 05/23/24 02/14/25 History magnesium oxide 400 mg (241.3 mg 400 mg PO DAILY suppl ement 05/23/24 05/21/24 History magnesium) tablet bempedoic acid 180 mg tablet 180 mg PO DAILY 07/11/24 01/12/25 History (Nexletol) ezetimibe 10 mg tablet 10 mg PO DAILY 07/11/2401/19 History levothyroxine 25 mcg tablet 25 mcg PO DAILY 11/28/24 0 02/14/25 History cholecalciferol (vitamin D3) 125 125 mcg PO DAILY 12/20 02/11 Unknown History mcg (5,000 unit) tablet (Vitamin D3) ferrous sulfate 325 mg (65 mg 325 mg PO DAILY 01/12/25 01/12/25 History iron) tablet (Feosol) nifedipine 60 mg tablet,extended 60 mg PO DAILY 02/14/25 History release furosemide 40 mg tablet (Lasix) 40 mg PO DAILY PRN SOB #14 tabs 05/10/25 Unknown Rx carvedilol 6.25 mg tablet 6.25 mg PO BID 05/21/25 Unkn own History furosemide 20 mg tablet 20 mg PO DAILY 05/21/25 Unkn own History Allergy/AdvReac Type Severity Reaction Status Date / Time lisinopril Allergy Intermediate Rash Verified 05/21/25 01:22 atorvastatin calcium (From Allergy Other Verified 05/21/25 01:22 Lipitor) clonidine Allergy Unknown Verified 05/21/25 01:22 rosuvastatin calcium (From Allergy Other Verified 05/21/25 01:22 Crestor) Kafymxb-WUW-YgO Reductase Allergy Other Verified 05/21/25 01:22 Inhibitor (Xltoupd-Dyp-Nwm Reductase Inhibitor) Family History Father Lung cancer Liver cancer Mother Oral cancer Surgical History S/P spigelian hernia repair, follow-up exam S/P AAA repair (~02/2025) History of right-sided carotid endarterectomy Hx of [...] coffee Number of servings: 2 ROS ROS Narrative Review of Systems: Constitutional: Patient denies fever or chills. Eyes: Patient denies changes in vision or discharge from eyes. ENT: Patient denies runny nose, sore throat or ear pain. Resp: Patient admits to shortness of breath but he denies cough. CV: Patient admits to chest pain with palpitations as per HPI. He denies lower extremity edema. GI: Patient denies abdominal pain, nausea, vomiting, diarrhea or constipation. : Patient denies dysuria or hematuria. MSK: Patient denies arthralgias or myalgias. Skin: Patient denies rash, abscess, wounds or jaundice. Psych: Patient denies symptoms of uncontrolled depression or anxiety. Neuro: Patient denies headache, paresthesias or focal neurologic deficits. Allergy: Patient denies lip swelling, tongue swelling or urticaria. Hematology: Patient denies easy bleeding or easy bruisability. Endocrinology: Patient denies polyuria, polydipsia, polyphagia or heat/cold intolerance. 14 point ROS otherwise negative except for positives noted above in HPI. Vital Signs Vital Signs Vital Signs: 05/21/25 01:21 05/21/25 01:31 05/21/25 01:54 Temperature 98.4 F Temperature Source Oral Pulse Rate 160 H 140 H Respiratory Rate 26 H 30 H Blood Pressure 141/102 H 138/99 H Blood Pressure Mean 115 112 Pulse Ox 98 100 Oxygen Delivery Method Room Air Room Air 05/21/25 01:56 05/21/25 03:00 Temperature Temperature Source Pulse Rate 87 82 Respiratory Rate 15 Blood Pressure 116/77 Blood Pressure Mean 90 Pulse Ox 96 Oxygen Delivery Method Room Air Weight Weight: 140 lb 10.479 oz Body Mass Index (BMI) 21.4 Physical Exam Const alert, oriented x3, no apparent distress and average body habitus Constitutional Narrative: Elderly gentleman who is nontoxic in appearance General Appearance: cooperative HEENT normocephalic, head/scalp atraumatic, hearing grossly normal bilaterally and moist oral mucous membranes Eyes PERRL, EOMs intact bilaterally and conjunctivae normal Neck no lymphadenopathy, supple and no JVD Resp normal respiratory effort, no retractions, no use of accessory muscles and clearto auscultation bilaterally Cardio regular rate and regular rhythm GI normal to inspection, nondistended, normoactive bowel sounds, soft to palpation,non-tender and non-distended Extremity normal to inspection, full ROM and no clubbing, cyanosis or edema Extremity Narrative: Patient has 2+ radial and dorsalis pedis pulses with no signs of edema. Skin Skin Narrative: Patient has evidence of rash, abscess, wounds or jaundice. Neuro oriented x3, CN's II-XII intact bilaterally, moves all extremities and no focal motor deficits Sensorium / Orientation: awake, alert, oriented to person, oriented to place andoriented to time Speech: speech normal Psych affect normal Results Medical Records Data Attestation: I reviewed the patient's medical records Lab / Micro Data Attestation: I reviewed the patient's lab results. 05/21/25 01:25 05/21/25 01:25 Labs: Laboratory Results - last 24 hr 05/21/25 01:25: WBC 4.5, RBC 3.58 L, Hgb 10.5 L, Hct 32.6 L, MCV 91.1, MCH 29.3,MCHC 32.2, RDW Std Deviation 49.6 H, RDW Coeff of Erma 14.7 H, Plt Count 92 L, MPV 11.2, Immature Gran % (Auto) 0.700, Neut % (Auto) 73.0 H, Lymph % (Auto) 16.2 L, [place] % (Auto) 5.8, Eos % (Auto) 3.6, Baso % (Auto) 0.7, Absolute Neuts (auto) 3.3, Absolute Lymphs (auto) 0.72 L, Nucleated RBC % 0, PT 16.0 H, INR 1.3, APTT 45.1 H, Sodium 140, Potassium 4.2, Chloride 104, Carbon Dioxide 21.4, Anion Gap 15, BUN 46 H, Creatinine 1.86 H, Estim Creat Clear Calc 26.20 L, Est GFR (MDRD) Non-Af 35 L, BUN/Creatinine Ratio 24.7H, Glucose 115 H, Calcium 9.2,Magnesium 2.1, Troponin T High Sens 93 H*, TSH 9.790 H Imaging Radiology Impression Chest X-Ray 05/21/25 02:05 IMPRESSION: Increased mild central pulmonary venous congestion. Unchanged emphysema. Mild increase in bilateral basilar atelectatic pulmonary changes. Reading Location[facility] [address] Assessment & Plan Assessment/Plan (1) Non-ST elevation NH (NSTEMI): (2) Acute exacerbation of chronic heart failure: (3) New onset atrial flutter: (4) DALTON (acute kidney injury): (5) Chronic renal failure, stage 3 (moderate): QUALIFIERS: Chronic kidney disease stage 3 subtype: stage 3a (GFR 45-59) Qualified Code(s): N18.31 - Chronic kidney disease, stage 3a (6) Elevated TSH: (7) Abdominal aortic 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: QUALIFIERS: Abdominal aorta location: infrarenal aorta Qualified Code(s): I71.43 - Infrarenal abdominal aortic aneurysm, without rupture (8) Type II endoleak of aortic graft: PLAN: Plan 1. Persistent tachyarrhythmia that was regular at ~150 bpm which ER physician suspected was due to Atrial Flutter; with RVR - Admit to ICU in case patient requires IV nitroglycerin as per cardiology recommendations and monitor for recurrent arrhythmia. Patient already started on IV heparin for #2. We will start BASA and continue carvedilol at current dose with normal blood pressure and no furtherchest discomfort after tachyarrhythmia resolved. 2. Elevated initial troponin T of 93 ng/L with second troponin T rising to 222 ng/L worrisome for superimposed non-ST elevation NH vs acute cardiac stain related to sustained tachyarrhythmia due to #1 - Continue IV heparin begun in the ER. Serialize troponin. Patient denies chest pain at this time.Give acetaminophen as needed for [id number] (level 1-5/10) pain or fever. Givemorphine IV as needed for severe (level 6-10/10) pain. Finally, [facility] rounds in the a.m. for further recommendations with help appreciated in advance. 3. AE of chronic diastolic CHF; with preserved LVEF with elevated NT pro-BNP IIof 3,942 pg/mL present on admission with corresponding CXR that revealed increased mild central pulmonary venous congestion with unchanged emphysema and mild increase in bibasilar atelectatic pulmonary changes attributable to #1 & #2- Give furosemide IV and gently diurese in light of #4. We will avoid potentially nephrotoxic agents including losartan. Check CXR and NT pro-BNP II daily to follow trend. 4. Suspected Mild DALTON; in the setting of CKD stage ~IIIa with elevated serum creatinine of 1.86 mg/dL with a eGFR of 35 mL/min (up from 1.53 mg/dL with eGFR down from 44 L/min on May 10, 2025) complicating #1 - #3 - Give albumin 12.5 g IV once and recheck renal indices daily to follow trend to monitor response totreatment. 5. Incidentally noted elevated TSH of 9.79 present on admission compounding #1 - #4 in the setting of previously known hypothyroidism on levothyroxine 25 mcg daily - Check Free T3/T4 and increase levothyroxine to 50 mcg daily. 6. 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 Hawk of vascular surgery adding to the medical complexity of #1 - #5 - Noted. 7. Essential hypertension; on losartan, nifedipine, carvedilol twice daily, hydralazine 3 times daily and furosemide - Maintain home regimen but change furosemide to IV for #3 and hold losartan for #4. 8. Hyperlipidemia; on ezetimibe and bempedoic acid -Present therapy to continueplus check Lipid Profile in light of #2. 9. Former tobacco abuse - Noted. 10. History of stenosis of Right internal carotid artery; s/p Right CEA - Noted. 11. History of TIA (05/2024) - Noted with no evidence of recurrence at this time. 12. MING; on ferrous sulfate - Maintain iron supplement. 13. History of diverticulosis - Noted. 14. History of IBS - Stable. 15. BPH; on doxazosin - Continue doxazosin as before. 16. OA; with lumbar disc disease s/p lumbar laminectomy x 2 who - Give acetaminophen prn as outlined in #2. 17. DVT prophylaxis - Patient already on IV heparin for #2. Total time: Approximately (but not less than) 75 minutes. Charges/Coding Visit Charges Inpatient E&M: 82250 Init Hosp L3 05/21/25 0504 Cosigner Signature (if applicable): CC: Dr. Cameron Solares DO; Dr. Dallas Reed MD~ Signed [facility]09-01-2025 Discharge summary [facility] Medical Records Department [address] [place] [address] Emergency Department Summary 05/21/25 MR#: [id number] Acct: [id number] Name: LEANA CAMEJO Rep #:[id number] : 1940 85 From: Veena Brewer PCP: Dr. Dallas Reed MD Status:A DM IN Location: ICU CVICU20 1-1 HPI History of Present Illness Chief Complaint: Chest Pain Informant: patient and spouse/S.O. Narrative Narrative: Patient is 85-year-old male with history of diastolic heart failure, abdominal aortic aneurysm, right internal carotid stenosis, hypertension, hyperlipidemia and type II endoleak of aortic graft presenting with chest pain and shortness ofbreath. Patient states he got out of bed around 1130 and felthe could not breathe. He states his chest was carrying all and he sat up and try to walk around. He was feeling short of breath. He denies any chest pain but does report a vague chest discomfort. He states he was in his normal state of healthwhen he went to bed tonight. He notes he recently was on a short course of diuretic per cardiology and they been making some medication changes. He tried to take an antacid thinking it was indigestion with this was not helpful. Came in for further evaluation. He denies any abdominal pain at this time. Denies any recent swelling of his legs. Denies any recent fever or chills. [facility] Medical History Spigelian hernia Wears [...] DAILY sup plement 02/14/20 05/23/24 History capsule doxazosin 8 mg tablet 8 mg PO QHS prostate 4 01/10/25 History hydralazine 100 mg tablet 100 mg PO TID blood pressure 05/23/24 02/14/25 History magnesium oxide 400 mg (241.3 mg 400 mg PO DAILY suppl ement 05/23/24 05/21/24 History magnesium) tablet bempedoic acid 180 mg tablet 180 mg PO DAILY 07/11/24 01/12/25 History (Nexletol) ezetimibe 10 mg tablet 10 mg PO DAILY 07/11/2401/19 History levothyroxine 25 mcg tablet 25 mcg PO DAILY 11/28/24 0 02/14/25 History cholecalciferol (vitamin D3) 125 125 mcg PO DAILY 12/20 02/11 Unknown History mcg (5,000 unit) tablet (Vitamin D3) ferrous sulfate 325 mg (65 mg 325 mg PO DAILY 01/12/25 01/12/25 History iron) tablet (Feosol) nifedipine 60 mg tablet,extended 60 mg PO DAILY 02/14/25 History release furosemide 40 mg tablet (Lasix) 40 mg PO DAILY PRN SOB #14 tabs 05/10/25 Unknown Rx carvedilol 6.25 mg tablet 6.25 mg PO BID 05/21/25 Unkn own History furosemide 20 mg tablet 20 mg PO DAILY 05/21/25 Unkn own History Allergy/AdvReac Type Severity Reaction Status Date / Time lisinopril Allergy Intermediate Rash Verified 05/21/25 01:22 atorvastatin calcium (From Allergy Other Verified 05/21/25 01:22 Lipitor) clonidine Allergy Unknown Verified 05/21/25 01:22 rosuvastatin calcium (From Allergy Other Verified 05/21/25 01:22 Crestor) Cwetngv-ZWM-YmP Reductase Allergy Other Verified 05/21/25 01:22 Inhibitor (Okhlkwy-Iwv-Oav Reductase Inhibitor) Family History Father Lung cancer Liver cancer Mother Oral cancer Surgical History S/P spigelian hernia repair, follow-up exam S/P AAA repair (~02/2025) History of right-sided carotid endarterectomy Hx of [...] ROS ROS ED Constitutional Constitutional ED: Denies chills or fever(s) Cardiovascular Cardiovascular: Reports as per HPI and palpitations Respiratory/Chest Respiratory/Chest: Reports dyspnea; Denies cough Gastrointestinal Gastrointestinal: Denies abdominal pain, nausea or vomiting Musculoskeletal Musculoskeletal: Denies arthralgias or myalgias Neurologic Neurologic: Denies weakness Hematologic/Lymphatic Hematologic/Lymphatic: Denies easy bleeding or easy bruising EXAM Physical Exam Const Vital Signs: 05/21/25 01:21 05/21/25 01:31 05/21/25 01:54 Temperature 98.4 F Temperature Source Oral Pulse Rate 160 H 140 H Respiratory Rate 26 H 30 H Blood Pressure 141/102 H 138/99 H Blood Pressure Mean 115 112 Pulse Ox 98 100 Oxygen Delivery Method Room Air Room Air 05/21/25 01:56 05/21/25 03:00 05/21/25 03:38 Temperature 98 F Temperature Source Pulse Rate 87 82 85 Respiratory Rate 15 17 Blood Pressure 116/77 130/80 H Blood Pressure Mean 90 96 Pulse Ox 96 98 Oxygen Delivery Method Room Air Positive well nourished and well developed General Appearance ED: well developed and NAD HEENT Reports moist mucous membranes normocephalic Eyes PERRL Neck supple and no JVD Chest Wall inspection of chest normal and palpation of chest normal Resp normal respiratory effort and clear to auscultation bilaterally Cardio regular rhythm and no murmurs Rate: tachycardic GI normal to inspection, nondistended, normoactive bowel sounds and soft to palpation Extremity normal to inspection Extremity Narrative: 2+ radial and DP pulses General Extremety ED: Negative for edema General Extremity: Negative for edema Neuro oriented x3 Sensorium / Orientation: awake and alert Motor Exam: general weakness Psych mental status grossly normal Skin no rashes or lesions noted and no wounds Heart Score History: Moderately Suspicious ECG: Significant ST-Depression Age: >/= 65 years Risk Factors: >/= 3 Risk Factors or History of CAD Troponin: >/=3 x Normal Limit Score: 9 MDM MDM MDM Narrative Medical decision making narrative: Patient is an 85-year-old male presenting with sudden onset shortness of breath chest discomfort that woke him up from sleep. He has a history of vascular disease and as well as diastolic heart failure. Upon arrival patient's heart rate is 160. Differential includes atrial flutter, atrial fibrillation, ACS, electrolyte derangement, thyroid storm, pneumothorax, CHF exacerbation and pleural effusion. Patient given IV metoprolol as his pressure is normal if not slightly elevated and he does not require emergent cardioversion. He is mentating appropriately. During administration of the second bolus of 5 mg IV metoprolol he converts intonormal sinus rhythm. Repeat EKG does show significant ST abnormalities with ST elevation in lead III and ST depressionsin lateral leads. He is now chest pain-free. Case is discussed with cardiology, Dr. Mcdowell, and he reviewed the EKG. He recommends starting the patient on heparin drip but agrees that this isnot a STEMI and likely more strain related to his recent arrhythmia. Plan to admit to the ICU however in casehe goes back into his arrhythmia or has furtherchest pain he would require nitroglycerin drip. Planfor echocardiogram in the morning. EKG #3 has now returned to his baseline and shows chronic T wave inversions in V3 and V6 but no further ST depressions or elevations. Initial high-sensitivity troponin is 93. Lab work otherwise remarkable for CKD with a creatinine of1.68, and elevated TSH of 9.79 and mild anemia with a hemoglobin of 10.5. Chest x-ray viewed by myself as well as radiology is consistent with worsening pulmonary vascular congestion and does show cardiomegaly. BNP is added on. Case is discussed with hospitalist for admission. History & Record Review Additional record(s) reviewed:: Prior outpatient record (Cardiology visit note- complaining of orthopnea-labs obtained. 40 mg Lasix (doubled) for 3 days.) and Prior labs (BNP 5468 on 05/10/2025) Lab Data Attestation: I reviewed the patient's lab results. Labs: Laboratory Results - last 24 hr 05/21/25 05/21/25 01:25 03:35 WBC 4.5 RBC 3.58 L Hgb 10.5 L Hct 32.6 L MCV 91.1 MCH 29.3 MCHC 32.2 RDW Std Deviation 49.6 H RDW Coeff of Erma 14.7 H Plt Count 92 L MPV 11.2 Immature Gran % (Auto) 0.700 Neut % (Auto) 73.0 H Lymph % (Auto) 16.2 L [place] % (Auto) 5.8 Eos % (Auto) 3.6 Baso % (Auto) 0.7 Absolute Neuts (auto) 3.3 Absolute Lymphs (auto) 0.72 L Nucleated RBC % 0 PT 16.0 H INR 1.3 APTT 45.1 H Sodium 140 Potassium 4.2 Chloride 104 Carbon Dioxide 21.4 Anion Gap 15 BUN 46 H Creatinine 1.86 H Estim Creat Clear Calc 26.20 L Est GFR (MDRD) Non-Af 35 L BUN/Creatinine Ratio 24.7 H Glucose 115 H Calcium 9.2 Magnesium 2.1 Troponin T High Sens 93 H* Troponin T Hi Sens 2 Hr 222 H* NT pro BNP II 3942 H TSH 9.790 H Radiography Diagnostic Testing: Clinical Impression(s) from Imaging Studies Chest X-Ray 05/21/25 02:05 IMPRESSION: Increased mild central pulmonary venous congestion. Unchanged emphysema. Mild increase in bilateral basilar atelectatic pulmonary changes. Reading Location: [place] [address] Rhythm Strip Rhythm Strip: Atrial flutter Rate: 153 Ectopy: None EKG Initial EKG: Attestation: I personally reviewed and interpreted this EKG as follows: Interpretation: Atrial Flutter Comments: Tachyarrhythmia at a rate of 153 bpm, suspect this is atrial flutter with 2-[address] depressions relatively diffusely with mild biphasic T wave changes of lead III consistent with subendocardial injury This is an acute change compared to prior EKG Prior: Changed 2: Attestation: I personally reviewed and interpreted this EKG as follows: Interpretation: Sinus Rhythm Comments: Normal sinus rhythm at a rate of 85 bpm Normal axis [address] elevation in lead III with ST depressions in 1, aVL, V4 through V6 These changes are more pronounced than when compared to patient's baseline EKGs. PVC present Prior: Changed 3: Attestation: I personally reviewed and interpreted this EKG as follows: Interpretation: Sinus Rhythm Comments: Normal sinus rhythm at a rate of 85 bpm with occasional PVCs Normal axis Normal intervals LVH with repolarization abnormality This is consistent patient's prior EKGs/based Management Discussion w/another healthcare provider: Hospitalist and Power Lineman Critical Care Time Critical Care Time: Yes Critical care time (excluding procedures): 30-74 minutes (40), Including time spent: (2 doses of IVmetoprolol for arrhythmia), Discussing w/Patient &/or Family/Linseed Oil Press Tender, Discussing w/Consultants, Arranging Admission or Transfer andPerforming Direct Patient Care at Bedside Discharge Plan Dx/Rx/DC Orders Clinical Impression: New onset atrial flutter, Non-ST elevation NH (NSTEMI), Acute exacerbation of chronic heart failure Disposition Disposition: Acute Care Hospital [facility] Discharge Date/Time: 05/21/25 04:43 What to do if you have Problems For any increased pain, shortness of breath, bleeding, nausea or vomiting, chestpain, or any unexpected problems, contact your Primary Care Provider. Call [facility] ([phone]) or report tothe closest Emergency Room. Call 911 if necessary. 05/21/25 0446 Cosigner Signature (if applicable): CC: Dr. Dallas Reed MD ~ Signed [facility]09-01-2025 Radiology Diagnostic study note [facility] Imaging Services [address] [place] [address] Chest 1 View (Portable) MR#: [id number] Acct: [id number] Name: LEANA CAMEJO Rep #: [id number] : 1940 M 85 From: Christina Shaffer MD PCP: Dr. Dallas Reed MD Status: R ER Study:Chest 1 View (Portable) Date of Exam: 05/21/25 Exam# [id number] Ordering Dr: Akila Nelson DO PROCEDURE: CHEST [...] bilateral basilar atelectatic pulmonary changes. Reading [facility] CC: Dr. Veena Nelson, DO; Dr. Dallas Reed MD ~ English Lecturer: Signed [facility]08-29-2025 [facility]08-29-2025 History of Present illness Narrative* Saira Darya M, X RAY DEVELOPER.PRODUCT PROMOTER RETAIL PET - 05/18/2025 10:09 AM EDT CC: Patient presents with: Fatigue: No energy x 2 months HPI Recording using Beacon Endoscopic software for draft documentation of the visit was discussed with the patient/authorized dealer compliance representative; all questions welcomed and answered. Patient/authorized dealer compliance representative agreed to proceed The patient is [...] night. - He was evaluated by his make up man who increased his Lasix to 80 mg daiy for a few days - Notes improvement in dyspnea and resolution of palpitations with diuretic use Anemia: - Recent aortic surgery on March 16 at [facility] by Dr. Bobo. - Post operative [...] 04/07/2023 AAA stent graft repair, [facility] LAPS RPR RECURRENT INCISIONAL HERNIA REDUCIBLE 07/29/2015 PAST SURGICAL HISTORY OF 09/09/2015 left total knee arthroplasty PAST SURGICAL HISTORY OF 09/15/2017 micro-disectomy L4-L5, with microcompression bilaterally. PAST SURGICAL HISTORY OF Right 12/16/2018 Repair of complex lateral meniscus tear, Right knee REPAIR UMBILICAL HERNIA 1979 Dr. Henry STRESS TEST 09/03/2017 normal ALLERGIES Clonidine, Crestor [Rosuvastatin Calcium], Lipitor [Atorvastatin Calcium], Lisinopril, Nifedipine, and Statins [Rgxkgdu-Lwj-Ugf Reductase Inhibitors] MEDICATIONS losartan (COZAAR) 100 mg [...] (FLONASE) 50 mcg/actuation nasal spray Use 1 Loyalhanna in each nostril daily at bedtime. aspirin [...] No Drug use: No documented in this encounterMagruder [facility] Hospital08-29-2025 Instructions* Patient Instructions* Darya Borden APRN.SHAWNA - 05/18/2025 10:06 AM EDT - Decrease the carvedilol 6.25 mg twice daily. This replaces your current 12.5 mg dose--do not takethe 12.5 mg tablets. - Bring this After Visit Summary into the pharmacy and ask them to fill carvedilol at 6.25 mg twicea day instead of 12.5 mg. 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 - Have blood drawn today for a complete blood count (to check for anemia) and a thyroid level documented in this encounterMagruder [facility] Hospital08-12-2025 Radiology Diagnostic study note [facility] Imaging Services [address] [place] [id number] CTA Abd/Pelvis W/WO Contrast MR#: [id number] Acct: [id number] Name: LEANA CAMEJO Rep #: [id number] : 1940 M 85 From: Gordo Alcaraz MD PCP: Dr. Dallas Reed MD Status: R EG CLI Study:CTA Abd/Pelvis W/WO Contrast Date of Ex am: 04/30/25 Exam# [id number] Ordering Dr: Villa Hawk MD PROCEDURE: CTA [...] abdominal aorta. Persistent aneurysmal dilatation of the [place] abdominal aorta with a transverse dimension of 51 mm. The patient is status post endoluminal stent grafting of the [place] abdominal aortic aneurysm with the proximal tip in the aorta and the distal tip in the common iliacarteries bilaterally. There is evidence of a coil seen along the left side of the distal aortic stent just proximal to the leftcommon iliac artery. Metallic artifact is seen at that site. There is a 2.3 cm by 1.9 cm high density projected over thesite of the stent on the left side. This may represent focal contrast accumulation. Iliac Arteries: Graft is patent. Extravascular Findings: Once again, there is a marked degree of splenomegaly. CT/CTA Abd/Pelvis W/WO Contrast IMPRESSION: Status post endoluminal stent grafting as described with coil placed in the distal portion of the abdominal aorta on the left side. Questionable localized contrast retention Reading Location: [facility] CC: Dr. Dustin Hawk MD; Dr. Dallas Reed MD ~ English Lecturer: Signed [facility]07-15-2025 NoteMer[facility]07-15-2025 History of Present illness Narrative* Luci Matute RN - 04/03/2025 12:29 PM EDT Images from the original note were not included. [facility] Care Path Telephonic Outreach Patient identified by Name and Date of . Discussed care with patient. H@H number provided, will send via Redeemr as well Program Details Chronic Disease Management [...] - Bi-Weekly Outreach (Recurring) Disposition Based on lean manufacturing specialist, the following disposition is advised: No action needed Luci Matute RN April 03, 2025 12:29 PM documented in this encounterMagruder [facility] Hospital07-09-2025 Telephone encounter Note * Telephone Encounter - Venessa Grant RN - 03/28/2025 10:26 AM EDT The patient has been identified by name [...] by mouth once daily. Venessa Grant RN [facility]07-09-2025 Miscellaneous Notes* Telephone Encounter - Venessa Grant RN - 03/28/2025 10:26 AM EDT The patient has been identified by name [...] daily. Venessa Grant RN documented in this encounterMagruder Memorial Hospital07-01-2025 NoteMer[facility]07-01-2025 History of Present illness Narrative* Adriane White RN - 03/20/2025 10:23 AM EDT Images from the original note were not included. [facility] Care Path Telephonic Outreach Provider Action/FYI Patient identified by Name and Date of . Discussed care with patient. Patient reports he had his cardiac surgery at [facility] on Wednesday and is recovering well, cathleen [...] 20, 2025 10:23 AM documented in this encounterMagruder Memorial Hospital06-30-2025 Telephone encounter Note * Telephone Encounter - Essence Romero PA-C - 03/19/2025 12:42 PM EDT Spoke with patient to follow up after endograft leak repair on 03/16. Patient reports they are doingwell today. He has been feeling well and has no specific complaints. Denies any redness, swelling, or drainage from the procedure site. I advised that the patient follow up with the ordering doctor. We will also obtain a CTA in approximately 6 months to evaluate the graft. He would like to have this done at [facility] as it is much closer to home. I stated we will fax order to [place] and work to schedule imaging there. Patient expressed understanding and thanked me for calling. [facility] [id number] Miscellaneous Notes* Telephone Encounter - Essence Romero PA-C - 03/19/2025 12:42 PM EDT Spoke with patient to follow up after endograft leak repair on 03/16. Patient reports they are doingwell today. He has been feeling well and has no specific complaints. Denies any redness, swelling, or drainage from the procedure site. I advised that the patient follow up with the ordering doctor. We will also obtain a CTA in approximately 6 months to evaluate the graft. He would like to have this done at [facility] as it is much closer to home. I stated we will fax order to [place] and work to schedule imaging there. Patient expressed understanding and thanked me for calling. documented in this [facility]06-27-2025 Hospital Discharge instructions* Discharge Instructions* Fide Miller RN - 03/16/2025 5:15 PM [...] is important to keep the site clean anddry during this time. Do not immerse the [...] a call between 8am and 5pm. - [facility] Radiology - [phone] - [facility] Radiology - [phone] - For questions after hours, please call [phone] and ask for the on-call Angiography Radiologist. This handout is intended to provide general educational material to assist you in making informed decisions regarding your medical care. Specific questions about your unique medical conditions shouldbe referred to your primary care physician. * Attachments The following attachments cannot be sent through Care Everywhere. * Arteriogram Discharge Instructions (Andorran) documented in this [facility]06-27-2025 NoteConscious sedation was administered. Patient tolerated the procedure well. Transfer to IR recovery for observation.[facility]06-27-2025 Nurse Note* Benny Guo RN - 03/16/2025 1:44 PM EDT Conscious sedation was administered. Patient tolerated the procedure well. Transfer to IR recovery for observation. [facility] [id number] Nurse Note* Benny Guo RN - 03/16/2025 1:44 PM EDT Conscious sedation was administered. Patient tolerated the procedure well. Transfer to IR recovery for observation. * Benny Guo RN - 03/16/2025 1:42 PM EDT Hemostasis achieved * Benny Guo RN - 03/16/2025 1:05 PM EDT Third coil deployed * Benny Guo RN - 03/16/2025 1:03 PM EDT Second coil deployed * Benny Guo RN - 03/16/2025 12:58 PM EDT First coil deployed * Benny Guo RN - 03/16/2025 12:02 PM EDT Patient arrived from IR prep 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 Dr. Bobo in to speak with the patient regarding procedure, and consent was obtained. Patient's lab values and allergies were reviewed. Patient was placed supine on exam table, prepped and draped in sterile fashion. Telemetry monitors were placed. documented in this [facility]06-27-2025 Nurse Note* Benny Guo RN - 03/16/2025 1:42 PM EDT Hemostasis achieved [place] [id number] Nurse Note* Benny Guo RN - 03/16/2025 1:05 PM EDT Third coil deployed [facility] [id number] Nurse Note* Benny Guo RN - 03/16/2025 1:03 PM EDT Second coil deployed [place] [id number] Nurse Note* Benny Guo RN - 03/16/2025 12:58 PM EDT First coil deployed [id number] Nurse Note* Benny Guo RN - 03/16/2025 12:02 PM EDT Patient arrived from IR prep 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 Dr. Bobo in to speak with the patient regarding procedure, and consent was obtained. Patient's lab values and allergies were reviewed. Patient was placed supine on exam table, prepped and draped in sterile fashion. Telemetry monitors were placed. [address] [id number] NoteIVR History & Physical Inpatient consult to Anesthesiology--For IR procedure Consult [...] artery. He follows with Dr. Hawk in [place] for surveillance. CT A/P on 01/18/25 revealed [...] Results Component Value Date (more content not included)...[facility]06-23-2025 Note* Care Coordination - Munira Dickinson RN - 03/12/2025 10:19 AM EDT Spoke to patient. Reviewed instructions for procedure. Please arrive to the Main Entrance ([address] [place] [address]), on ground floor go to registration if you are not pre- registered. If pre-registered, continue on ground floor, follow past [employer] and the [employer], take Elevator 21 to the 2nd floor, and report to 2 N/Interventional Radiology 1.5 hours prior to your scheduled appointment. If you are parking in theMain Parking Garage, take the bridge on the [...] that this needs to be approved by physicianordered the medication. Patient is to call us [...] or friend. Questions answered. Verbalized understanding. . [facility] [id number] NoteSpoke to patient. Reviewed instructions for procedure. Please arrive to the Main Entrance ([address] [facility]), on ground floor go to registration [...] member or friend. Questions answered. Verbalized understanding. .[facility]06-23-2025 Miscellaneous Notes* Care Coordination - Munira Dickinson RN - 03/12/2025 10:19 AM EDT Spoke to patient. Reviewed instructions for procedure. Please arrive to the Main Entrance ([address] [facility]), on ground floor go to registration if you are not pre- registered. If pre-registered, continue on ground floor, follow past [employer] and the [employer], take Elevator 21 to the 2nd floor, and report to 2 N/Interventional Radiology 1.5 hours prior to your scheduled appointment. If you are parking in theMain Parking Garage, take the bridge on the [...] that this needs to be approved by physicianordered the medication. Patient is to call us [...] answered. Verbalized understanding. . documented in this [facility]06-23-2025 Miscellaneous Notes* Care Coordination - Munira Dickinson RN - 03/12/2025 9:39 AM EDT Left message for patient. Reviewed instructions for procedure. Please arrive to the Main Entrance ([address] [facility]), on ground floor go to registration if you are not pre- registered. If pre-registered, continue on ground floor, follow past [employer] and the [employer], take Elevator 21 to the 2nd floor, and report to 2 N/Interventional Radiology 1.5 hours prior to your scheduled appointment. If you are parking in theMain Parking Garage, take the bridge on the 1st Floor, then to ground floor and follow to Elevator 21. Aware of arrival time at 0930 am to Interventional Radiology on 03/16/25, nothing to eat after 0000,may have clear liquids (black coffee, tea, juices [...] member or friend. . documented in this [facility]06-23-2025 Note* Care Coordination - Munira Dickinson RN - 03/12/2025 9:39 AM EDT Left message for patient. Reviewed instructions for procedure. Please arrive to the Main Entrance ([address] [facility]), on ground floor go to registration if you are not pre- registered. If pre-registered, continue on ground floor, follow past [employer] and the [employer], take Elevator 21 to the 2nd floor, and report to 2 N/Interventional Radiology 1.5 hours prior to your scheduled appointment. If you are parking in theMain Parking Garage, take the bridge on the 1st Floor, then to ground floor and follow to Elevator 21. Aware of arrival time at 0930 am to Interventional Radiology on 03/16/25, nothing to eat after 0000,may have clear liquids (black coffee, tea, juices [...] responsible adult family member or friend. . [facility] [id number] NoteLeft message for patient. Reviewed instructions for procedure. Please arrive to the Main Entrance ([address]), on ground floor go to registration if [...] a responsible adult family member or friend. .[facility]06-23-2025 NoteMer[facility] Health [facility]06-23-2025 History of Present illness Narrative* Darya Borden, X RAY DEVELOPER.PRODUCT PROMOTER RETAIL PET - 03/12/2025 9:03 AM EDT CC: Patient presents with: Follow Up: 6 months HPI Recording using Beacon Endoscopic software for draft documentation of the visit was discussed with the patient/authorized dealer compliance representative; all questions welcomed and answered. Patient/authorized dealer compliance representative agreed to proceed Krystle Camejo is [...] leaking graft. - [facility]; upcoming procedure by Dr. Bobo at [facility]. Review of Systems See HPI PAST MEDICAL HISTORY Diagnosis Date Abdominal aortic aneurysm (AAA) without rupture 08/26/201708/2017: 3.7 cm Anemia Chronic diastolic CHF (congestive heart failure) ([facility]) 10/20/[address] Montes CKD (chronic kidney disease) stage 3, GFR 30-59 ml/min ([facility]) 02/20/2014 Collagenous colitis 02/04/2023 COVID-19 09/12/2021 DDD (degenerative disc disease), lumbar 08/26/2017 Diarrhea Diverticulosis of colon (without mention of hemorrhage) Hematoma of right iliopsoas muscle 06/21/2019 Internal hemorrhoids without mention of complication Lumbar radiculopathy 08/26/2017 Mixed hyperlipidemia Hyperlipidemia Pancreatic cyst ([facility]) 07/17/2024 S/P carotid endarterectomy right 01/20/2021 [...] 04/07/2023 AAA stent graft repair, [facility] LAPS RPR RECURRENT INCISIONAL HERNIA REDUCIBLE 07/29/2015 PAST SURGICAL HISTORY OF 09/09/2015 left total knee arthroplasty PAST SURGICAL HISTORY OF 09/15/2017 micro-disectomy L4-L5, with microcompression bilaterally. PAST SURGICAL HISTORY OF Right 12/16/2018 Repair of complex lateral meniscus tear, Right knee REPAIR UMBILICAL HERNIA 1980 Dr. Henry STRESS TEST 09/03/2017 normal ALLERGIES Clonidine, Crestor [Rosuvastatin Calcium], Lipitor [Atorvastatin Calcium], Lisinopril, Nifedipine, and Statins [Dywdapa-Loy-Mbn Reductase Inhibitors] MEDICATIONS carvedilol (COREG) 12.5 mg [...] (FLONASE) 50 mcg/actuation nasal spray Use 1 Loyalhanna in each nostril daily at bedtime. aspirin [...] in November during hospitalization; results may have beenskewed due to acute illness. - Ordered repeat [...] repair by interventional radiologist Dr. Bobo at [facility] on Wednesday. - This will be [...] plan. Darya Borden APRN.CNP documented in this encounterMagruder Memorial Hospital06-23-2025 Instructions* Patient Instructions* Darya Borden APRN.CNP - 03/12/2025 9:00 AM [...] scheduled aortic repair procedure this Wednesday in [place] with Dr. Bobo. - Continue caring for the superficial skin sore on your bottom--keep it clean and dressed--and let us know if it worsens or shows signs of infection. documented in this encounterMagruder Memorial Hospital06-13-2025 NoteMer[facility]06-13-2025 History of Present illness Narrative* Adriane White RN - 03/02/2025 11:50 AM EDT Images from the original note were not included. [facility] Care Path Telephonic Outreach Provider Action/FYI Patient identified by Name and Date of . Discussed care with patient. 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 If unsuccessful, will plan for translumbar approach. Medical Problems Subjective: History of Present Illness Mr. Camejo is an 85 year old male with history of abdominal aortic aneurysm status post repair withan endovascular aortobiiliac stent graft presenting with increase [...] conscious sedation and embolization with coils and Larimore via the above-mentioned approach. Risks of bleeding, infection, and nontargetembolization including bowel infarction and need for surgery [...] by agreement and consent. I used the followingTelehealth technology: Audio capability only. Total length of [...] remote fashion in spite of them. Any andall of the patient's/patient's family's questions on this issue have been answered and I have made no promises or guarantees to the patient. The patient has also been advised to contact this office for worsening conditions or problems, and seek emergency medical treatment and/or call 911 if the patient deems either necessary. The patient stated that they are currently in the state [facility]. If thepatient is a minor, permission has been obtained [...] No current facility-administered medications for this visit. 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 If unsuccessful, will plan for translumbar approach. Medical Problems Subjective: History of Present Illness Mr. Camejo is an 85 year old male with history of abdominal aortic aneurysm status post repair withan endovascular aortobiiliac stent graft presenting with increase [...] conscious sedation and embolization with coils and Larimore via the above-mentioned approach. Risks of bleeding, infection, and nontargetembolization including bowel infarction and need for surgery [...] by agreement and consent. I used the followingTelehealth technology: Audio capability only. Total length of [...] remote fashion in spite of them. Any andall of the patient's/patient's family's questions on this issue have been answered and I have made no promises or guarantees to the patient. The patient has also been advised to contact this office for worsening conditions or problems, and seek emergency medical treatment and/or call 911 if the patient deems either necessary. The patient stated that they are currently in the [facility]. If thepatient is a minor, permission has been obtained [...] medications for this visit. documented in this [facility]06-12-2025 NoteInterventional Radiology Consultation March 01, 2025 Assessment/Plan: Type [...] conscious sedation and embolization with coils and Larimore via the above-mentioned approach. Risks of bleeding, [...] that they are currently in the state [facility]. If the patient is a minor, [...] file. 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 suspected April 8:04am Hyperlipidemia resolved April 8:04am Shortness of breath resolved 2024 8:04am Abdominal aortic 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 inactive May 10 8:04am Essential hypertension inactive 2024 8:04am Stenosis of right internal carotid artery inactive May 10 8:04am Shortness of breath resolved 2024 4:22am Abdominal aortic 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 inactive May 21 4:22am Acute exacerbation of chroni c heart failure inactive May 21 4:22am DALTON (acute kidney injury) inactive May 21, 2025 4:22am Anemia inactive May 21, 2025 4:22am Chronic renal failure, stage 3 (moderate) inactive May 21 4:22am 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 inactive 2024 4:22am Elevated TSH inactive May 4:22am Essential hypertension inactive pt2024 4:22am New onset atrial flutter inactive May 21, 2025 4:22am Non-ST elevation NH (NSTEMI) inactiv e May 21, 2025 4:22am Stenosis of right internal carotid artery inactive May 21 025 4:22am 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 May 21 4:22am Abnormal stress test acute May 8:34am Fatigue acute May 8:34am Paroxysmal atrial flutter acute June 05, 2025 8:34am 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 suspected May 212024 8:34am Hyperlipidemia resolved June 05, 2025 8:34am Abdominal aortic 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 inactive June 05, 2025 8:34am Essential hypertension inactive Se pt2024 8:34am Stenosis of right internal carotid artery inactive June 05, 2025 8:34am [facility] Work Phone: [phone] NoteMer[facility]06-09-2025 History of Present illness Narrative* Adriane White RN - 02/26/2025 2:23 PM EDT Value based Operations Care Management Heart Failure [...] 26, 2025 2:28 PM documented in this encounterMagruder Memorial Hospital06-02-2025 NoteMer[facility]06-02-2025 History of Present illness Narrative* Adriane White RN - 02/19/2025 11:27 AM EDT Images from the original note [...] 19, 2025 11:36 AM documented in this encounterMagruder [facility] Hospital05-29-2025 Telephone encounter Note * Telephone Encounter - Adriana Short LPN - 02/15/2025 4:48 PM EDT The patient has been identified by name [...] Short LPN February 15, 2025 4:50 PM [facility]05-29[facility] Miscellaneous Notes* Telephone Encounter - Adriana Short LPN - 02/15/2025 4:48 PM EDT The patient has been identified by name [...] 15, 2025 4:50 PM documented in this encounterMagruder Memorial Hospital05-29-2025 Telephone encounter Note * Telephone Encounter - [place] Monica Mehta - 02/15/2025 4:40 PM EDT Prescription Refill Information The patient [...] is out on the weekend. Monica Ball [facility] February 15, 2025 4:40 PM [facility]05-29-[facility] Miscellaneous Notes* Telephone Encounter - [place] Monica Mehta - 02/15/2025 4:40 PM EDT Prescription Refill Information The patient [...] he is out on the weekend. Monica Mehta February 15, 2025 4:40 PM documented in this encounterMagruder Memorial Hospital05-28-2025 Procedure note [facility] Medical Records Department [address] [place] [address] Operative Report 02/14/25 1613 MR#: [id number] Acct: [id number] Name: LEANA CAMEJO Rep #:[id number] : 1940 85 From: Dustin Hawk MD PCP: Dr. 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 Timeout was performed and conscious sedation ministered Versed and fentanyl. Initial effortswere planned from radial access in an effort to improve the work angle with a superior mesenteric artery. Skin overlying the right radial artery was anesthetized with 1% lidocaine the vessel accessedwith a micropuncture needle wire to then exchanged for a 6 Bangladeshi radial sheath. Through this verapamil, nitro, and heparin were infused. Next Bentson wire and a KMP catheter were advanced navigatingthrough the excellent brachial arteries and into the aortic arch. We then navigated the arch and into the descending thoracic aorta advancing wire and catheter to the hub. The 100 cm catheter reachedapproximately midway through the thoracic aorta likely due to tortuosity within the arch in the proximal thoracic aorta. Given the distance to the superior mesenteric artery let alone navigating the branches to access the inferior mesenteric artery it was felt that we had no chance to complete intervention from the radial access. Next skin overlying the right common femoral artery wasanesthetizedwith 1% lidocaine and the vessel accessed under ultrasound guidancewith a micropuncture needle wire. This then exchanged for micropuncture sheath through which hand-injection iliofemoral angiograms performed revealing satisfactory position with no extravasation or dissection. Through the micropuncture sheath Bentson wires advanced the micropuncture sheath exchanged for a short 6 Bangladeshi sheath. Through a 6 Bangladeshi sheath Bentson wire was advanced into the abdominal aorta and a straight flush catheter advanced to the visceral segment and subtraction aortogram performed with oblique views in an effort to identify the origin of the superior mesenteric artery. Patient had anabnormally low superior mesenteric artery origin just above the renal arteries and in close proximity to the endograft. The Bentson wire was then readvanced and the short 6 Bangladeshi sheath in flush catheter exchanged for a 6French Ansell 2 sheath and utilizing this along with a Glidewire and the angled catheter efforts were made to engage the superior mesenteric artery. Ultimately were able to get the Glidewire into thesupra mesenteric artery but we were unable toadvance any catheters. Multiple varying catheter and sheath shapes were utilized including an Ansell 1, and MUNDO catheter, and MUNDO guide with an angled glide catheter all of which failed to both access the superior mesenteric arteryand obtain sufficient purchase to advance into the vessel. After exhausting reasonable efforts we felt that no further efforts were warranted so the long 6 Bangladeshi sheath was exchanged for a short 6 Bangladeshi sheath and a minx closure device deployed followed by manual pressure. After releasing manual pressure was noted therewas hematoma forming so prolonged manual pressure was held and the patient taken the recovery area with planned discharge home after prolonged bedrest. Surgical Findings: See above Complications Complications: No 02/14/25 1621 Cosigner Signature (if applicable): CC: Dr. Dustin Hawk MD; Dr. Dallas Reed MD~ Signed [facility]05-28-2025 History and physical note Author Dustin Hawk [facility] Note Date/Time February 14, 2025 11:36 am [facility] Medical Records Department [address] [place] [address] History & Physical Exam 02/14/25 1133 MR#: [id number] Acct: [id number] Name: LEANA CAMEJO Rep #:[id number] : 1940 85 From: Dustin Hawk MD PCP: Dr. Dallas Reed MD Status:R [facility] Location: [facility] HPI - General HPI Narrative LEANA CAMEJO, is a 85 M who presents with prior EVAR with type II endoleak, increasing residual sac. Patent MUNDO with robust communication with SMA; 2 lumbararteries. [facility] Medical History Spigelian hernia Wears hearing aid [...] (From Allergy Other Verified 01/12/25 10:29 Crestor) Onycvls-YYT-DtU Reductase Allergy Other Verified 01/12/25 10:29 Inhibitor (Dezpyfb-Wqg-Ekl Reductase Inhibitor) Family History Father Lung cancer [...] Hawk MD; Dr. Dallas Reed MD~ Signed [facility] Work Phone: 1(777) 629-819805-28-2025 History and physical note [facility] Medical Records Department [address] [place] [address] History & Physical Exam 02/14/25 1133 MR#: [id number] Acct: [id number] Name: LEANA CAMEJO Rep #:[id number] : 1940 85 From: Dustin Hawk MD PCP: Dr. Dallas Reed MD Status:R [facility] Location: [facility] HPI - General HPI Narrative LEANA CAMEJO, is a 85 M who presents with prior EVAR with type II endoleak, increasing residual sac. Patent MUNDO with robust communication with SMA; 2 lumbararteries. [facility] Medical History Spigelian hernia Wears hearing aid [...] mg tablet 10 mg PO DAILY 07/11/24 0505/14 History levothyroxine 25 mcg tablet 25 mcg [...] (From Allergy Other Verified 01/12/25 10:29 Crestor) Czylcuq-ZFL-GaQ Reductase Allergy Other Verified 01/12/25 10:29 Inhibitor (Ypnreak-Iwg-Mzj Reductase Inhibitor) Family History Father Lung cancer [...] Hawk MD; Dr. Dallas Reed MD~ Signed [facility]05-28-2025 [facility] Evaluation note* Diagnosis Onset Date Resolution Status Admit Date Type II endoleak of aortic graft the medical center on February 14, 2025 9:24am Type II endoleak of aortic graft [facility] February 27, 2025 2:40pm Abdominal aortic 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 April 18, 2025 4:16pm [facility] Work Phone: 1(248) 608-398005-28-2025 Evaluation note* Diagnosis Onset Date Resolution Status [...] chronic May 10 8:04am Essential hypertension chronic Au 2024 8:04am 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 suspected April 8:04am Hyperlipidemia resolved April 8:04am Shortness of breath resolved 2024 8:04am [facility] Work Phone: 1(352) 364-508205-28-2025 Evaluation note* Diagnosis Onset Date Resolution Status [...] 8:04am Shortness of breath resolved 2024 8:04am Acute exacerbation of chroni c heart failure acute May 21, 2 025 3:46am DALTON (acute kidney injury) acute May 21, 2025 3:46am Elevated TSH acute May 3:46am New onset atrial flutter acute May 21, 2025 3:46am Non-ST elevation NH (NSTEMI) acute May 21, 2025 3:46am Abdominal aortic 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 May 21, 2 025 3:46am Chronic renal failure, stage 3 (moderate) chronic May 21, 2 025 3:46am 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 May 21 025 3:46am [facility] Work Phone: 1(496) 929-637505-28-2025 Evaluation note* Diagnosis Onset Date Resolution Status [...] chronic May 10 8:04am Essential hypertension chronic Au 2024 8:04am 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 suspected April 8:04am Hyperlipidemia resolved April 8:04am Shortness of breath resolved 2024 8:04am Acute exacerbation of chroni c heart failure acute May 21 025 4:22am DALTON (acute kidney injury) acute May 21, 2025 4:22am Elevated TSH acute May 4:22am New onset atrial flutter acute May 21, 2025 4:22am Non-ST elevation NH (NSTEMI) acute May 21, 2025 4:22am 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 May 21 4:22am Abdominal aortic 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 May 21 4:22am Anemia chronic May 21, 2025 4:22am Chronic renal failure, stage 3 (moderate) chronic May 21 4:22am 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 chronic 2024 4:22am Essential hypertension chronic Se 2024 4:22am 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 May 21 4:22am Shortness of breath resolved 2024 4:22am [facility] Work Phone: 1(553) 688-582705-28-2025 Evaluation note* Diagnosis Onset Date Resolution Status Admit Date 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 February 14, 2025 9 :24am 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 February 27, 2025 2:40pm Abdominal aortic 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 inactive April 18, 2025 4:16pm 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 suspected April 8:04am Hyperlipidemia resolved April 8:04am Shortness of breath resolved Aug2024 8:04am Abdominal aortic 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 inactive May 10 8:04am Essential hypertension inactive 2024 8:04am Stenosis of right internal carotid artery inactive May 10 8:04am Shortness of breath resolved 2024 4:22am Abdominal aortic 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 inactive May 21 025 4:22am Acute exacerbation of chroni c heart failure inactive May 21 4:22am DALTON (acute kidney injury) inactive May 21, 2025 4:22am Anemia inactive May 21, 2025 4:22am Chronic renal failure, stage 3 (moderate) inactive May 21 4:22am 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 inactive 2024 4:22am Elevated TSH inactive May 4:22am Essential hypertension inactive Se 2024 4:22am New onset atrial flutter inactive May 21, 2025 4:22am Non-ST elevation NH (NSTEMI) inactiv e May 21, 2025 4:22am Stenosis of right internal carotid artery inactive May 21 4:22am 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 May 21 4:22am Abnormal stress test acute Sept emb2024 8:34am Aneurysm, common iliac artery acute June 05, 2025 8:34am Carotid artery stenosis acute S eptember 2024 8:34am 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 [facility] Care Path Telephonic Outreach Provider Action/FYI Patient identified by Name and Date of . Discussed care with patient. Program Details Chronic Disease Management Status: Enrolled Effective Dates: 01/17/2025 - present Responsible Staff: Adriane White, CHRISTIANO Support and Services: Congestive Heart Failure (CHF), [...] 01, 2025 1:48 PM documented in this encounterMagruder Memorial Hospital04-30-2025 NoteMer[facility]04-30-2025 History of Present illness Narrative* Adriane White [...] were you homeless or living in a detention (including now)?: No Transportation Needs In the [...] has the electric, gas, oil, or water [employer] threatened to shut off services in your [...] 17, 2025 2:17 PM documented in this encounterMagruder Memorial Hospital04-25-2025 Discharge summary Author Hernandez King [facility] Note Date/Time January 12, 2025 1:2 [facility] [address] [place] [address] Emergency Department Summary 01/12/25 MR#: [id number] Acct: [id number] Name: LEANA CAMEJO Rep #:[id number] : [...] of aortic graft which was evaluated at [facility] November of this year. He is [...] was reviewed.) Recent Illness/Hospitalization: Yes (Transfer to [facility] for evaluation of endoleak of aort) [facility] Medical History Spigelian hernia Wears [...] (From Allergy Other Verified 01/12/25 10:29 Crestor) Lpazffk-JQF-EwH Reductase Allergy Other Verified 01/12/25 10:29 Inhibitor (Hhyyjmd-Xey-Ngt Reductase Inhibitor) Family History Father Lung cancer [...] were changed when he was at the [place]. He [place] his both [place] General [...] % (Auto) 63.2 Lymph % (Auto) 22.3 [place] % (Auto) 9.8 Eos % (Auto) 3.5 [...] of the examination is unchanged. [place] Location: [facility] Since the endoleak is unchanged and [...] anything return to the emergency Print Language: Andorran Disposition Disposition: Home, Self Care What to do if you have Problems For any increased pain, shortness of breath, bleeding, nausea or vomiting, chestpain, or any unexpected problems, contact your Primary Care Provider. Call [facility] ([phone]) or report to the closest Emergency Room. Call 911 if necessary. 01/12/25 1321 <Electronically signed by Hernandez King MD> Cosigner Signature (if applicable): CC: Dr. Dallas Reed MD ~ Signed [facility] Work Phone: 1(397) 719-507904-25-2025 Discharge summary [facility] Medical Records Department [address] [place] [address] Emergency Department Summary 01/12/25 MR#: [id number] Acct: [id number] Name: LEANA CAMEJO Rep #:[id number] : [...] of aortic graft which was evaluated at [facility] November of this year. He is [...] was reviewed.) Recent Illness/Hospitalization: Yes (Transfer to [facility] for evaluation of endoleak of aort) [facility] Medical History Spigelian hernia Wears [...] (From Allergy Other Verified 01/12/25 10:29 Crestor) Djdvvlm-TKE-GzL Reductase Allergy Other Verified 01/12/25 10:29 Inhibitor (Inzzfzs-Sbv-Ijg Reductase Inhibitor) Family History Father Lung cancer [...] were changed when he was at the [place]. He and his both commented [place]. General Appearance [...] % (Auto) 63.2 Lymph % (Auto) 22.3 [place] % (Auto) 9.8 Eos % (Auto) 3.5 [...] of the examination is unchanged. [place] Location: [facility] Since the endoleak is unchanged and [...] anything return to the emergency Print Language: Andorran Disposition Disposition: Home, Self Care What to do if you have Problems For any increased pain, shortness of breath, bleeding, nausea or vomiting, chestpain, or any unexpected problems, contact your Primary Care Provider. Call [facility] ([phone]) or report tothe closest Emergency Room. Call 911 if necessary. 01/12/25 1321 Cosigner Signature (if applicable): CC: Dr. Dallas Reed MD ~ Signed [facility]04-25-2025 Radiology Diagnostic study note [facility] Imaging Services [address] [place] [address] Abdomen/Pelvis W IV Cont ONLY MR#: [id number] Acct: [id number] Name: LEANA CAMEJO Rep #: [id number] : 1940 M 85 From: Gordo Alcaraz MD PCP: Dr. Dallas Reed MD Status: R EG ER Study:Abdomen/Pelvis W IV Cont ONLY Date of E xam: 01/12/25 Exam# [id number] Ordering Dr: Rhett King MD PROCEDURE: ABDOMEN/PELVIS [...] Liver: Diffuse fatty infiltration. Gallbladder: Unremarkable. Spleen: Yzotubxz-lu-ithdnp degree of splenomegaly. This is unchanged. Pancreas: [...] of the examination is unchanged. [place] Location: [place] [address] CC: Dr. Hernandez King MD; Dr. Dallas Reed MD ~ English Lecturer: Signed [facility]04-08-2025 NoteMer[facility]04-08-2025 History of Present illness Narrative* Adriane White RN - 12/26/2024 11:21 AM EDT Transitional Care Management (TCM) Follow-Up Note PCP Update / Actionable Items N/A - No specialty updates needed Patient Source: In-Network Discharge Follow-up outreach: TCM enrolled patient Outreach Summary: Patient reports some mild sob and palpitations last night, he does have a call out to his provider from [facility] and will discuss with him, as well [...] 26, 2024 11:27 AM documented in this encounterMagruder Memorial Hospital04-07-2025 Evaluation note* Diagnosis Onset Date Resolution Status Admit Date Type II endoleak of aortic graft the medical center on December 25, 2024 3:30pm Type II endoleak of aortic graft the medical center on February 14, 2025 9:24am [facility] Work Phone: 1(258) 444-391104-07-2025 Evaluation note* Diagnosis Onset Date Resolution Status Admit Date Type II endoleak of aortic graft the medical center on December 25, 2024 3:30pm Type II endoleak of aortic graft the medical center on February 14, 2025 9:24am Type II endoleak of aortic graft the medical center on February 27, 2025 2:40pm [facility] Work Phone: 1(394) 948-929504-04-2025 NoteMer[facility]04-04-2025 History of Present illness Narrative* Ramon Lee, [...] Patient will report no falls. (Goal Met) [place] in home exercise program. (Goal Met) Patient [...] 944 Ramon Lee PT documented in this encounterMagruder Memorial Hospital04-01-2025 NoteMer[facility]04-01-2025 History of Present illness Narrative* [...] 19, 2024 10:29 AM documented in this encounterMagruder Memorial Hospital04-01-2025 NoteMer[facility]04-01-2025 History of Present illness Narrative* Ramon Lee, [...] toward set goals. PLAN FOR NEXT VISIT: [place] SUBJECTIVE: No new falls. Left side anterior [...] Time (minutes): 40 Session Start Time : 0918 Session Stop Time : 957 Ramon Lee PT documented in this encounterMagruder Memorial Hospital03-28-2025 NoteMer[facility]03-28-2025 History of Present illness Narrative* Ramon Lee, [...] 913 Session Stop Time : 954 Ramon Yvonne, PT documented in this encounterMagruder Memorial Hospital03-25-2025 NoteMer[facility]03-25-2025 History of Present illness Narrative* Ramon Lee, [...] Bilateral knee collapse (worse on R) during vij-vh-pskfpw without use of hands and with increased [...] 956 Ramon Lee PT documented in this encounterMagruder Memorial Hospital03-24-2025 Telephone encounter Note * Telephone Encounter - [...] Fagan RPh December 11, 2024 2:24 PM [facility]03-24-2025 Miscellaneous Notes* Telephone Encounter - Emily Fagan RP - [...] 11, 2024 2:24 PM documented in this encounterMagruder Memorial Hospital03-24-2025 NoteMer[facility]03-24-2025 History of Present illness Narrative* Adriane White [...] further. Routed to RX 4C Medication Question ([id number]) and indicate in Pharmacy Box Patient Questions [...] 11, 2024 11:55 AM documented in this encounterMagruder Memorial Hospital03-24-2025 Telephone encounter Note * Telephone Encounter - [...] Hernandez LPN December 11, 2024 9:14 AM [facility]03-24-2025 Miscellaneous Notes* Telephone Encounter - Theodora Hernandez [...] by mouth three times a day. Theodora Hernandze LPN December 11, 2024 9:14 AM * Telephone Encounter - Vicky Narvaez - 12/11/2024 8:16 AM EDT Patient was placed back on hydralazine 100 mg after hospital visit and alternative medication failure. He is asking for a new mcfp script to be sent to the [facility] in [place]. documented in this encounterMagruder Memorial Hospital03-24-2025 Telephone encounter Note * Telephone Encounter - Vicky Narvaez - 12/11/2024 8:16 AM EDT Patient was placed back on hydralazine 100 mg after hospital visit and alternative medication failure. He is asking for a new mcfp script to be sent to the [facility] in [place]. [facility]03-21-2025 Instructions* Patient Instructions* Dallas Reed MD - 12/08/2024 12:[address] HAWK FOR FOLLOW UP OF ENDOLEAK OF YOUR ANEURYSM. documented in this encounterMagruder Memorial Hospital03-21-2025 NoteMercy [facility]03-21-2025 History of Present illness Narrative* Dallas Reed MD - 12/08/2024 11:49 AM EDT This note was created using C3Nanoriter. Subjective Patient presents with: Hospital F/U Transitional [...] referred to the ER, then transferred to [facility]. Patient was admitted to F CICU [...] Rhinitis Abdominal Aortic Aneurysm (Aaa) Without Rupture ([facility]) Overweight (Bmi 25.0-29.9) Status Post Endovascular Aneurysm [...] 2 LIMB [facility]07[facility]2023 [facility] INCISIONAL HERNIA REDUCIBLE 07/29/2015 PAST [...] for follow up. He is establish with [facility] and did not need a [...] medications Dallas Reed MD documented in this encounterMagruder Memorial Hospital03-21-2025 NoteMer[facility]03-21-2025 History of Present illness Narrative* Ramon Lee, [...] 954 Ramon Lee PT documented in this encounterMagruder Memorial Hospital03-19-2025 History of Present illness Narrative* Ramon Lee, PT - 12/06/2024 9:54 AM EDT Program_ID:[id number] Access Code: [email or web address] URL: [email or web address] Date: 12-06-2024 Prepared By: Ramon Lee Program [...] set goals. PLAN FOR NEXT VISIT: HS [place], SLR; Dynamic Balance. SUBJECTIVE: Patient with recent ED [facility]. From Chart - admitted on 11/28 after starting to have LLQ pain starting Friday 11/24. [facility] and they ordered a CT that showed an enlarged abdominal aorta comapred toprior. Patient was recommended to present to hospital. Patient went to [facility] and there hisSBP was 140. Patient [...] Time (minutes): 41 Session Start Time : 15 Session Stop Time : 0956 Ramon Lee PT documented in this encounterMagruder Memorial Hospital03-19-2025 NoteMer[facility] Center03-17-2025 NoteHNO ID: [id number] Author: DALLAS REED MD Service: ? Author Type: Physician Type: Progress Notes Filed: 12/05/2024 12:54 Note Text: Medication list updated. Continue current medications per patient report. Follow up this Wednesday as scheduled.[facility]03-17-2025 History of Present illness Narrative* Dallas Reed MD - 12/04/2024 2:11 PM EDT Medication list updated. Continue current medications per patient report. Follow up this Wednesday as scheduled. * Yessenia Price [facility] - 12/04/2024 7:13 AM EDT [...] these changes if you agree or have information support project manager contact pt to advise what you recommend [...] oz) Patient was sent a message via Interfolio including the link to the [facility] Heart Failure education video: Yes Initial contact with patient post discharge, spoke to patient, and verified that any applicable caregiver is active in patient's medical care. Patient identified by name and . Summary: -Pt discharged from [facility] on 12/01/24. -Medication review done Full [...] pain starting Friday 11/24. Patient went to [facility] urgent care on Wednesday and they ordered a CT that showed an enlarged abdominal aorta comapred to prior. Patient was recommended to present to hospital. Patient went to [facility] and there hisSBP was 140. Patient was not given any medications there and he was recommended to be transferred to [facility]. Hospital Course: [facility] [...] (FLONASE) 50 mcg/actuation nasal spray Use 1 Loyalhanna in each nostril daily at bedtime. Discontinued: [...] Pt is not taking Removed Preferred pharmacy: [facility] [address] [place] [address] [phone] [facility] [phone] [place] [id number] Estimated Creatinine Clearance: 33.5 mL/min (A) (based on SCr of 1.59 mg/dL (H)). Estimated Glomerular Filtration Rate (mL/min/1.73m ) Date Value 12/01/2024 43 (L) eGFR- (no units) Date Value 07/02/2021 57 Additional follow up: Next 5 Appointments Date and Time Provider Department Dept Phone 12/06/2024 9:15 AM Ramon Lee PT [facility] [phone] 12/08/2024 9:15 AM Ramon Lee PT [facility] [phone] 12/08/2024 11:40 AM Dallas Reed INTM [facility] [phone] 12/12/2024 9:15 AM Ramon Lee PT [facility] [phone] 12/15/2024 9:15 AM Ramon Lee PT [facility] [phone] Interventions Made: Adherence counseling Pharmacist Recommendations Made Potential drug interaction/side effects/adverse effects detected Care Coordination: Escalated to specialist provider Time spent on patient: 45-60 minutes Yessenia Price RPh December 04, 2024 7:14 AM documented in this encounterMagruder [facility] Hospital03-17-2025 NoteMer[facility]03-17-2025 History of Present illness Narrative* Adriane White RN - 12/04/2024 9:40 AM EDT Transition Care Management (TCM) Initial Outreach PCP Update / Actionable Items HRTIC TCM Home Visit Referral Source of Stratification: TCM HUB Hospital Admission Status: Discharged Readmission Risk Score: 11 Patient's zip code: [address] Is zip code within program service area: [...] follow up with patient. Patient discharged from [facility] Discharge date: 12/01/24 Admitted for: Type 2 endoleak of aortic graft Readmission Risk: 11 Value-Based Contract: ACO Contact: Contact made with patient: Yes Hi, my name is Adriane Wihte RN and I am calling from the [facility] on behalf of your Primary Care Provider, [...] I will send your request to a planner/scheduler who will contact and assist you with [...] 04, 2024 9:43 AM documented in this encounterMagruder Memorial Hospital03-17-2025 NoteMer[facility]03-15-2025 Telephone encounter Note* Telephone Encounter - Dustin [...] with plan. Dustin Lombardi APRN.CNP 7:06 PM [facility] Work Phone: 1(350) 779-614603-15-2025 Miscellaneous Notes* Telephone Encounter - Dustin Lombardi [...] Lombardi APRN.CNP 7:06 PM documented in this encounterMagruder Memorial Hospital03-14-2025 NoteMer[facility]03-14-2025 NoteMer[facility]03-13-2025 NoteMer[facility]03-11-2025 NoteMer[facility]03-11-2025 History of Present illness Narrative* Tali Maldonado APRN.[employer] - 11/28/2024 10:08 PM EDT Images from the original note were not included. Critical Care Transport Note Patient Name: Leana Camejo Service Date: 11/28/24 Referring Physician: Isaac Referring Facility: [facility] Accepting Physician: Gabrielle Accepting Facility: [facility] SUBJECTIVE/CHIEF COMPLAINT: LLQ abdominal pain REASON FOR [...] stenosis, anemia and HPL. He presented to [facility] today for evaluation of acute onset abdominal pain. Per rep ort he has had LLQ abdominal pain since Wednesday (11/24/24). In the ED he was noted to be mildly hypertensive, no N/V, no peripheral numbness/tingling. CT noted interval increased size of abdominal aortic aneurysm sac compared to prior exam, interval increased blush within the [place] aortic sac, evidence of type 2 endo leak. He was given morphine and zofran in the ED. At this time, the physician managing the patient requested transfer to the [facility] for tertiary and/or quaternary services unavailable at the referring facility. The physician managing the patient requested the [facility] Critical Care Transport Team transport and treat the patient for the purpose of tertiary care, evaluation, and management of his acute AAA with endoleak condition(s). Air medical transport was requested to reduce the ple-rn-dcgnslmk time, 27 minutes by air vs. approximately [...] aortic aneurysm (AAA) without rupture ([facility]) 08/26/201708/2017: 3.7 cm Anemia Chronic diastolic CHF (congestive heart failure) ([facility]) 10/20/[address] Montes CKD (chronic kidney disease) stage 3, GFR 30-59 ml/min ([facility]) 02/20/2014 Collagenous colitis 02/04/2023 COVID-19 09/12/2021 [...] Calcium], Lipitor [Atorvastatin Calcium], Lisinopril, and Statins [Ekiuimi-Sxi-Qvl Reductase Inhibitors] SOCIAL HISTORY: Social History Tobacco [...] Interval increase in contrast blush within the [place] aortic sac. These findings consistent with progressive [...] HR < 70 - Expedite transport to [facility] for further workup and care The transport was completed without significant incident or change in the patient's status. The patient was transported to the the [facility] by [employer]otor (Helicopter) for tertiary and/or quaternary evaluation and management of his Critical Surgical condition(s). Upon arrival to the receiving facility, a dmzc-ee-hbjk report was given to bedside nursing staff [id number] and bedside medical team . Patient care [...] endoleak and the Cardiovascular impairment, Respiratory impairment, HSE COORDINATOR impairment, Shock, Cardiac Arrest, and Severe metabolic abnormality which the patient had and/or had a high probability of suddenly developing. SIGNATURE: Tali Maldonado APRN.CNP Acute Care Nurse Practitioner [facility] Critical Care Transport Team documented in this encounterMagruder Memorial Hospital03-11-2025 Discharge summary [facility] Medical Records Department [address] [place] [address] Emergency Department Summary 11/28/24 MR#: [id number] Acct: [id number] Name: LEANA CAMEJO Rep #:[id number] : [...] for 5 days and was seen by [facility] care physician's office yesterday. They did a [...] (From Allergy Other Verified 11/28/24 17:53 Crestor) Nfffvmd-OPZ-CwM Reductase Allergy Other Verified 11/28/24 17:53 Inhibitor (Vqfcabp-Iqw-Fxs Reductase Inhibitor) Family History Father Lung cancer [...] pain and outpatient CT done at the [facility] facility locally yesterday showed a AAA [...] this or another cause. I spoke to [facility] auto launch 2 of their surgeons a [...] 71.3 H Lymph % (Auto) 17.0 L [place] % (Auto) 9.1 Eos % (Auto) 1.6 [...] Sl. Cloudy Urine pH 6.5 Ur Specific Cammal 1.010 Urine Protein 15 H Urine Glucose [...] Interval increase in contrast blush within the [place] aortic sac. These finding is consistent with [...] use of iterative reconstruction technique). Reading Location: [id number] Rhythm Strip Rhythm Strip: Sinus Rhythm Rate: 87 Ectopy: None EKG Initial EKG: Attestation: I personally reviewed and interpreted this EKG as follows: Interpretation: Sinus Rhythm and No Acute Injury Pattern Comments: Normal sinus rhythm rate 87 no acute signs of NH or ischemia. Discharge Plan Triage Chief Complaint: [...] MD [Primary Care Provider] - Print Language: Andorran Disposition Disposition: Acute Care Hospital What to do if you have Problems For any increased pain, shortness of breath, bleeding, nausea or vomiting, chestpain, or any unexpected problems, contact your Primary Care Provider. Call [facility] ([phone]) or report tothe closest Emergency Room. Call 911 if necessary. 11/28/240 Cosigner Signature (if applicable): CC: Dr. Dallas Reed MD ~ Signed [facility]03-11-2025 Radiology Diagnostic study note [facility] Imaging Services [address] [place] [address] Abdomen/Pelvis W IV Cont ONLY MR#: [id number] Acct: [id number] Name: LEANA CAMEJO Rep #: [id number] : 1940 M 84 From: Raegan Gupta MD PCP: Dr. Dallas Reed MD Status: P RE ER Study:Abdomen/Pelvis W IV Cont ONLY Date of E xam: 11/28/24 Exam# [id number] Ordering Dr: Mira Gray MD PROCEDURE: ABDOMEN/PELVIS [...] abnormal enhancement within the sac of the coy[place] aorta which are consistent with endoleak arising [...] Interval increase in contrast blush within the [place] aortic sac. These finding is consistent with [...] use of iterative reconstruction technique). Reading Location: [facility] CC: Dr. Nate Gray MD; Dr. Dallas Reed MD ~ English Lecturer: Signed [facility]03-11-2025 Telephone encounter Note* Telephone Encounter - Sheeba Castellano MA - 11/28/2024 5:22 PM EDT Nurse called back line and I spoke to another provider Susan Gates NP since pcp/ACID PURIFIER were out. ROSSI Gates advised patient needs to go to ER due to pain and change in aortic size. Did call patient who advised will go to [facility] ER and aware of results from radiologist below. Called [facility] ER and spoke to Dr. Gray and faxed CT/office note/Radiologist report to [phone]. Sheeba Castellano MA [facility]03-11-2025 Miscellaneous Notes* Telephone Encounter - Sheeba Castellano MA - 11/28/2024 5:22 PM EDT Nurse called back line and I spoke to another provider Susan Gates NP since pcp/ACID PURIFIER were out. ROSSI Gates advised patient needs to go to ER due to pain and change in aortic size. Did call patient who advised will go to [facility] ER and aware of results from radiologist below. Called [facility] ER and spoke to Dr. Gray and faxed CT/office note/Radiologist report to [phone]. Sheeba Castellano MA * Telephone Encounter - Venessa Grant RN - 11/28/2024 5:08 PM EDT Received call from Dr. Ga, [facility] Radiologist regarding pt's CT ABD/PEL results stating per result note, there has been interval enlargement of the [place] lumen consistent with a hemodynamically significant leak'. Dr. Ga states he is unsure if this is cause for patient's pain but he is asking provider to address this and contact patient. Venessa Grant RN documented in this encounterMagruder Memorial Hospital03-11-2025 Telephone encounter Note * Telephone Encounter - Venessa Grant RN - 11/28/2024 5:08 PM EDT Received call from Dr. Ga, [facility] Radiologist regarding pt's CT ABD/PEL results stating per result note, there has been interval enlargement of the [place] lumen consistent with a hemodynamically significant leak'. Dr. Ga states he is unsure if this is cause for patient's pain but he is asking provider to address this and contact patient. Venessa Grant RN [facility]03-11-2025 Discharge summary Author Nate Gray [facility] Note Date/Time November 28, 2024 7:2 0pm [facility] Medical Records Department [address] [place] [address] Emergency Department Summary 11/28/24 MR#: [id number] Acct: [id number] Name: LEANA CAMEJO Rep #:[id number] : [...] for 5 days and was seen by [facility] care physician's office yesterday. They did a [...] (From Allergy Other Verified 11/28/24 17:53 Crestor) Sicpqyz-YIV-SnH Reductase Allergy Other Verified 11/28/24 17:53 Inhibitor (Jpqbrzw-Pns-Eyo Reductase Inhibitor) Family History Father Lung cancer [...] pain and outpatient CT done at the [facility] facility locally yesterday showed a AAA [...] this or another cause. I spoke to [facility] auto launch 2 of their surgeons a [...] 71.3 H Lymph % (Auto) 17.0 L [place] % (Auto) 9.1 Eos % (Auto) 1.6 [...] Sl. Cloudy Urine pH 6.5 Ur Specific Cammal 1.010 Urine Protein 15 H Urine Glucose [...] Interval increase in contrast blush within the [place] aortic sac. These finding is consistent with [...] use of iterative reconstruction technique). Reading Location: [id number]-WK Rhythm Strip Rhythm Strip: Sinus Rhythm Rate: 87 Ectopy: None EKG Initial EKG: Attestation: I personally reviewed and interpreted this EKG as follows: Interpretation: Sinus Rhythm and No Acute Injury Pattern Comments: Normal sinus rhythm rate 87 no acute signs of NH or ischemia. Discharge Plan Triage Chief Complaint: [...] MD [Primary Care Provider] - Print Language: Andorran Disposition Disposition: Acute Care Hospital What to do if you have Problems For any increased pain, shortness of breath, bleeding, nausea or vomiting, chestpain, or any unexpected problems, contact your Primary Care Provider. Call [facility] ([phone]) or report to the closest Emergency Room. Call 911 if necessary. 11/28/241919 <Electronically signed by Nate Gray MD> Cosigner Signature (if applicable): CC: Dr. Dallas Reed MD ~ Signed [facility] Work Phone: [phone] 336-671703-10-2025 Instructions* Patient Instructions* Darya Borden APRN.SHAWNA - 11/27/2024 11:27 AM EDT Go to ER or call 911 if you develop severe abdominal pain, vomiting that won't stop, high fever, rigid/hard abdomen. documented in this encounterMagruder Memorial Hospital03-10-2025 NoteMer[facility]03-10-2025 NoteMer[facility]03-10-2025 History of Present illness Narrative* Darya Borden [...] aortic aneurysm (AAA) without rupture ([facility]) 08/26/201708/2017: 3.7 cm Anemia Chronic diastolic CHF (congestive heart failure) ([facility]) 10/20/[address] Montes CKD (chronic kidney disease) stage 3, GFR 30-59 ml/min ([facility]) 02/20/2014 Collagenous colitis 02/04/2023 COVID-19 09/12/2021 [...] 04/07/2023 AAA stent graft repair, [facility] LAPAROSCOPY SURG RPR INITIAL INGUINAL HERNIA [...] Calcium], Lipitor [Atorvastatin Calcium], Lisinopril, and Statins [Hbthyio-Yev-Dpw Reductase Inhibitors] MEDICATIONS hydrALAZINE (APRESOLINE) 100 mg tablet Take 1 tablet by mouth three times a day. levothyroxine (SYNTHROID) 25 mcg tablet Take 1 tablet by mouth daily before breakfast. bempedoic acid (NEXLETOL) 180 mg tablet Take 1 tablet (180 mg) by mouth once daily. fluticasone (FLONASE) 50 mcg/actuation nasal spray Use 1 [place] in each nostril daily at bedtime. aspirin [...] Level: 4 - Moderate documented in this encounterJoel Ville [address]-10-2025 NoteMer[facility]03-10-2025 History of Present illness Narrative* Gavin Rivero APRN.[employer]ER [employer] - 11/27/2024 9:46 AM EDT Nontoxic-appearing 84-year-old male presents urgent care chief complaint abdominal pain. Duration of symptoms 2 days. Associated symptoms left-sided abdominal pain. States aching-like discomfort. OTCmedications none. States this started after eating at [employer] Wednesday night. Presents today for evaluation. States pain is persistent. No vomiting. No change in bowel or bladder habits. No fevers. Appointment today at 11 AM with PCP Gavin Rivero APRN.PRODUCT PROMOTER RETAIL PET documented in this encounterMagruder Memorial Hospital03-07-2025 [facility]03-07-2025 History of Present illness Narrative* Ramon [...] 822 Ramon Lee PT documented in this encounterMagruder Memorial Hospital03-04-2025 History of Present illness Narrative* Ramon Lee, PT - 11/21/2024 11:26 AM EST Program_ID:[id number] Access Code: [email or web address] URL: [email or web address] Date: 11-21-2024 Prepared By: Ramon Lee Program [...] 2-3 sets - 8-10 reps - Standing November with Counter Support - 2 x daily [...] established 11/21/24 Patient will report no falls. [place] in home exercise program. Patient will Improve [...] Planned: 8 Planned Treatment Interventions: Therapeutic exercise (34865), Neuromuscular re- education (61013), Manual therapy (32101), Therapeutic activities (82121), Self- nursing home management (49421), Patient/Family/Caregiver Education PLAN FOR NEXT VISIT: Challenge [...] report. Subsequent Abrasion/contusion on head. Went to [facility] care three days later andthen [...] Knee Scope (15-20 years). 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 Montes CKD (chronic kidney disease) stage 3, GFR 30-59 ml/min ([facility]) 02/20/2014 Collagenous colitis 02/04/2023 COVID-19 09/12/2021 [...] 1130 Ramon Lee PT documented in this encounterMagruder Memorial Hospital03-04-2025 NoteMer[facility]02-20-2025 NoteMer[facility]02-20-2025 History of Present illness Narrative* Dallas Reed MD - 11/09/2024 2:20 PM EST This note was created using Carsquare. Subjective Leana Camejo is a 84 year [...] stage 3, GFR 30-59 ml/min ([facility]) Chronic Diastolic Chf (Congestive Heart Failure) ([facility]) Allergic Rhinitis Abdominal Aortic Aneurysm (Aaa) Without Rupture ([facility]) Overweight (Bmi 25.0-29.9) S/P carotid endarterectomy [...] (FLONASE) 50 mcg/actuation nasal spray Use 1 [place] in each nostril daily at bedtime. aspirin [...] THERAPY Dallas Reed MD documented in this encounterMagruder Memorial Hospital02-18-2025 NoteMer[facility]02-18-2025 History of Present illness Narrative* Elbert Hawk APRN.[facility] - 11/07/2024 11:57 AM EST Subjective [...] aortic aneurysm (AAA) without rupture ([facility]) 08/26/201708/2017: 3.7 cm Anemia Chronic diastolic CHF (congestive heart failure) ([facility]) 10/20/[address] Montes CKD (chronic kidney disease) stage 3, GFR 30-59 ml/min ([facility]) 02/20/2014 Collagenous colitis 02/04/2023 COVID-19 09/12/2021 [...] 04/07/2023 AAA stent graft repair, [facility] LAPAROSCOPY SURG RPR INITIAL INGUINAL HERNIA [...] Calcium], Lipitor [Atorvastatin Calcium], Lisinopril, and Statins [Clpayss-Ukn-Teb Reductase Inhibitors] MEDICATIONS hydrALAZINE (APRESOLINE) 100 mg tablet Take 1 tablet by mouth three times a day. levothyroxine (SYNTHROID) 25 mcg tablet Take 1 tablet by mouth daily before breakfast. bempedoic acid (NEXLETOL) 180 mg tablet Take 1 tablet (180 mg) by mouth once daily. fluticasone (FLONASE) 50 mcg/actuation nasal spray Use 1 [place] in each nostril daily at bedtime. aspirin [...] MUPIROCIN 2 % TOPICAL OINTMENT Elbert Hawk APRN.[employer]ODUCT PR[employer]ER [employer] documented in this encounterMagruder Memorial Hospital01-13-2025 Telephone encounter Note * Telephone Encounter - [...] Please advise. Thank you. Cassandra Couch LPN. [facility]01-13-2025 Miscellaneous Notes* Telephone Encounter - Cassandra Couch [...] you. Cassandra Couch LPN. 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 Would like script sent to Laureen Asif. [facility]12-20-2024 Miscellaneous Notes* Telephone Encounter - Ibeth Manriquez [...] thyroid labs in 3 months Darya Borden APRN.[employer] documented in this encounterMagruder Memorial Hospital12-20-2024 Telephone encounter Note * Telephone Encounter - Ibeth Manriquez LPN - 09/08/2024 9:29 AM EST ----- Message from Darya Borden APRN.SHAWNA sent at 09/08/2024 6:34 AM EST ----- Please let the patient know his lab results are consistent with hypothyroidism. Start treatment with levothyroxine 25 mcg daily and recheck thyroid labs in 3 months Darya oBrden APRN.PRODUCT PR[employer]ER [employer] [facility]12-19-2024 Instructions* Patient Instructions* Darya Borden APRN.CNP - [...] review all the medicines you take, even gagc-ebg-tljfloy medicines. As you get older, the way [...] have certain medical conditions. documented in this encounterMagruder Memorial Hospital12-19-2024 NoteMer[facility]12-19-2024 History of Present illness Narrative* Darya Borden [...] General (Internal Medicine) Fide Goff RN as Miter Operator (Internal Medicine) Darya Borden, DUSTIN.PRODUCT PROMOTER [employer] PET as Edger Liner (Internal Medicine) Cardiology- Dr. Felipe Service Liaison Representative- Dr. Dominguez Vascular surgeon-Dr. Bruce Medical/Family history [...] Counseled on low sodium diet Darya Borden APRN.SHAWNA documented in this encounterMagruder Memorial Hospital12-09-2024 NoteMer[facility]12-09-2024 History of Present illness Narrative* Fide Goff RN - 08/28/2024 11:06 AM EST CDM Telephonic Outreach Provider Action/FYI CDM: CHF, CKD 2nd Attempt Lvm, Instructed to contact PCP/Provider for symptom changes, concerns or needs. Contacted for: Routine Telephonic Outreach Contact made with patient: No, left message. Fide Goff RN August 28, 2024 11:09 AM documented in this encounterMagruder Memorial Hospital12-05-2024 NoteMer[facility]12-05-2024 History of Present illness Narrative* Fide Goff RN - 08/24/2024 1:20 PM EST CDM Telephonic Outreach Provider Action/FYI CDM: CHF, CKD 1st Attempt Lvm, Instructed to contact PCP/Provider for symptom changes, concerns or needs. Contacted for: Routine Telephonic Outreach Contact made with patient: No, left message. Fide Goff RN August 24, 2024 1:21 PM documented in this encounterMagruder Memorial Hospital12-04-2024 [facility]12-04-2024 [facility]11-14-2024 Telephone encounter Note* Telephone Encounter - Maribell Huston LPN - 08/03/2024 8:16 AM EST Form faxed back to number on it. [facility]11-14-2024 Miscellaneous Notes* Telephone Encounter - Maribell Huston [...] forms. Maria E to re-fax forms to [phone]. Ranjana Soto RN documented in this encounterMagruder Memorial Hospital11-13-2024 Telephone encounter Note * Telephone Encounter - Dallas Reed MD - 08/02/2024 5:27 PM EST Form completed, signed. [facility]11-12-2024 Telephone encounter Note* Telephone Encounter - Maribell Huston LPN - 08/01/2024 10:36 AM EST Surgical clearance form rec'd and to pcp to review. [facility] [facility] Telephone encounter Note* Telephone Encounter - Ranjana Soto RN - 08/01/2024 9:34 AM EST Maria E with Dr. Bruce calls to ask if we received surgical clearance forms for patient on 07/26/2024. Noted an OV note from Dr. Bruce but no forms. Maria E to re-fax forms to [phone]. Ranjana Soto RN [facility]11-04-[facility] History of Present illness Narrative* Fide Goff RN - 07/24/2024 9:57 AM EST CDM Telephonic Outreach Provider Action/FYI 07/11/24 Pt noted seen at [facility] ED for Left Abd Hernia pain 07/24/24 Pt denies nausea, or vomiting, denies Abd pain Voiding and BM's without difficulty, eating and hydrating well denies fever or chills No medications were ordered Pt has 07/26/24 Appt with Surgeon at [facility] Pt had recent bilateral shoulder pain, completed bilateral injections 07/17/24 by [facility] Instructed to contact PCP/Provider for symptom [...] to talk about today? Yes Based on lean manufacturing specialist, the following disposition is advised: No symptoms or symptoms present, not severe. Routed to: No Action Needed PAVEL Education Provided this Outreach: No Fide Goff RN July 24, 2024 10:01 AM documented in this encounterMagruder [facility] Hospital11-02-2024 [facility]11-02-2024 History of Present illness Narrative* Fide Goff RN - 07/22/2024 4:04 PM EDT CDM Telephonic Outreach Provider Action/FYI CDM: CHF, CKD 1st Attempt Contacted for: Routine Telephonic Outreach Contact made with patient: No, unable to leave message. Will reattempt call Fide Gfof RN July 22, 2024 4:08 PM documented in this encounterMagruder [facility] Hospital10-28-2024 Instructions* Patient Instructions* Dallas Reed MD - 07/17/2024 1:40 PM EDT FASTING BLOOD WORK NEXT MONTH BEFORE APPOINTMENT. documented in this encounterMagruder Memorial Hospital10-28-2024 [facility]10-28-2024 History of Present illness Narrative* Dallas Reed MD - 07/17/2024 1:24 PM EDT This note was created using Carsquare. Subjective Leana Camejo is a 84 year old male. He developed left lower quadrant pain and swelling about two weeks ago from push mowing. He went to the ER 07/11/24 and was diagnosed with a spigelian hernia. Healjennifer had a abdominal aortic aneurysm that was [...] disorder. Dallas Reed MD documented in this encounterMagruder Memorial Hospital10-22-2024 [facility]10-22-2024 History of Present illness Narrative* Gavin River[facility] APRN.[facility] - 07/11/2024 4:01 PM EDT Nontoxic-appearing male presents urgent care chief complaint abdominal pain and distention. Duration of symptom 1 week. Associated symptoms listed above. Presents today for evaluation. Discussed following up with PCP versus ED. Patient states will be seen emergency room today for further evaluationcare. Will be sent [facility]. will transport patient. Gavin Rivero APRN.[employer] documented in this encounterMagruder Memorial Hospital10-04-2024 [facility]10-04-2024 History of Present illness Narrative* Fide Goff [...] care with patient Outcomes: [facility] to telephone outreach Are you experiencing any new or worsening symptoms you need to talk about today? No Based on lean manufacturing specialist, the following disposition is advised: No symptoms [...] 22, 2024 9:47 AM documented in this encounterMagruder Memorial Hospital10-03-2024 [facility]Mer[facility]09-18-2024 Instructions* Patient Instructions* Dallas Reed MD - 06/07/2024 9:12 AM EDT FASTING BLOOD WORK JULY. documented in this encounterMagruder Memorial Hospital09-18-2024 History of Present illness Narrative* Dallas Reed MD - 06/07/2024 8:34 AM EDT This note was created using Validroidter. Subjective Patient presents with: [facility] F/U Leana Camejo is a 84 [...] Rhinitis Abdominal Aortic Aneurysm (Aaa) Without Rupture ([facility]) Overweight (Bmi 25.0-29.9) S/P carotid endarterectomy [...] Abs Lymph 1.00 - 4.00 k/uL 1.04 [place]% % 10.0 Abs [place] <0.87 k/uL 0.63 Eosin% % 1.9 Abs Eosin <0.46 k/uL 0.12 Baso% % 0.6 Abs Baso <0.11 k/uL 0.04 Immature Gran % % 0.5 IMMATURE GRANS (ABS) <0.10 k/uL 0.03 NRBC /100 WBC 0.0 Absolute nRBC <0.01 k/uL <0.01 DTYPE Auto Color Yellow Yellow Clarity Clear Clear Glucose, Urine Negative Negative Bilirubin, Urine Negative Negative Ketones, Urine Negative Negative Specific Cammal, Ur 1.005 - 1.030 1.016 Hemoglobin/Blood,Ur Negative [...] BASIC Dallas Reed MD documented in this encounterMagruder Memorial Hospital09-03-2024 History of Present illness Narrative* Aubrie Gomez PA-C - 05/23/2024 2:13 PM EDT 05/23/2024 [...] vertigo previously and was treated successfully by [facility]. When he got up he just [...] aortic aneurysm (AAA) without rupture ([facility]) Comment: 08/2017: 3.7 cm No date: Anemia 10/20/2016: Chronic diastolic CHF (congestive heart failure) ([facility]) Comment: Sees Dr. Montes 02/20/2014: CKD (chronic kidney disease) stage 3, GFR 30-59 ml/min ([facility]) 02/04/2023: Collagenous colitis 09/12/2021: COVID-19 08/26/2017: [...] Calcium], Lipitor [Atorvastatin Calcium], Lisinopril, and Statins [Icmrgtf-Vji-Xdz Reductase Inhibitors] MEDICATIONS Current Outpatient Medications Medication [...] to ED. Patient will drive himself to [facility] ED. Again, patient refuses against medical advice. The patient indicates understanding of these issues and agrees with the plan. Reviewed red flags and when to seek care sooner. Aubrie Gomez PA-C documented in this encounterMagruder Memorial Hospital09-03-2024 Telephone encounter Note * Telephone Encounter - [...] a provider today 05-23-24. Perlita Tang LPN [facility]09-03-2024 Miscellaneous Notes* Telephone Encounter - Perlita Tang [...] 05-23-24. Perlita Tang LPN documented in this encounterMagruder Memorial Hospital07-19-2024 Telephone encounter Note * Telephone Encounter - Maribell Huston LPN - 04/07/2024 1:53 PM EDT Fax rec'd from Dr. Davis's office notifying pcp that pt cancelled 04/24/[address] Davis.Fax to pcp then to medical records for scanning. [facility]07-19-2024 Miscellaneous Notes* Telephone Encounter - Maribell Huston LPN - 04/07/2024 1:53 PM EDT Fax rec'd from Dr. Davis's office notifying pcp that pt cancelled 04/24/[address] Davis.Fax to pcp then to medical records for scanning. documented in this encounterMagruder Memorial Hospital07-03-2024 Telephone encounter Note * Telephone Encounter - [...] Shirley Mehta March 22, 2024 1:17 PM [facility]07-03-2024 Miscellaneous Notes* Telephone Encounter - Shirley Corey [...] 22, 2024 1:17 PM documented in this encounterMagruder Memorial Hospital06-22-2024 History of Present illness Narrative* Prema Agee APRN.CNP - 03/11/2024 11:35 AM EDT This note was created using C3Nanoriter. Subjective Leana Camejo is a 84 year [...] Level: 3 - Low documented in this encounterMagruder Memorial Hospital06-18-2024 History of Present illness Narrative* Fide Goff [...] pounds in a week? Yes Based on lean manufacturing specialist, the following disposition is advised: No symptoms or symptoms present, not severe. Routed to: No Action Needed PAVEL Education Provided this Outreach: No Fide Goff RN March 07, 2024 4:54 PM documented in this encounterMagruder Memorial Hospital06-17-2024 Telephone encounter Note * Telephone Encounter - [...] Cathleen Mehta March 06, 2024 9:00 AM [facility]06-17-2024 Miscellaneous Notes* Telephone Encounter - Cathleen Ortega [...] 06, 2024 9:00 AM documented in this encounterMagruder Memorial Hospital06-17-2024 Telephone encounter Note * Telephone Encounter - Adriana Short LPN - 03/06/2024 8:56 AM EDT Patient calling asking to have referral faxed to Dr Flaherty office at [phone]. Patient said his shoulder pain is bothering him quite a lot. Printed office notes, insurance card copies, face sheet, xray reports, consult and faxed as requested. Patient said he has appt in April. [facility]06-17-2024 Miscellaneous Notes* Telephone Encounter - Adriana Short LPN - 03/06/2024 8:56 AM EDT Patient calling asking to have referral faxed to Dr Flaherty office at [phone]. Patient said his shoulder pain is bothering him quite a lot. Printed office notes, insurance card copies, face sheet, xray reports, consult and faxed as requested. Patient said he has appt in April. documented in this encounterMagruder Memorial Hospital06-11-2024 Telephone encounter Note * Telephone Encounter - Shahana Delgado LPN - 02/29/2024 2:53 PM EDT Pt calls to request shoulder xray results and insurance cards be faxed to [facility] in [facility]. Faxed to: [phone] as requested. Shahana Delgado LPN [facility]06-11-2024 Miscellaneous Notes* Telephone Encounter - Shahana Delgado LPN - 02/29/2024 2:53 PM EDT Pt calls to request shoulder xray results and insurance cards be faxed to [facility] in [facility]. Faxed to: [phone] as requested. Shahana Delgado LPN documented in this encounterMagruder Memorial Hospital05-23-2024 Telephone encounter Note * Telephone Encounter - [...] Please advise. Thank you. Damir Summers MA. [facility]05-23-2024 Miscellaneous Notes* Telephone Encounter - Damir Summers [...] Thank you. Lorena Kimbrough. documented in this encounterMagruder Memorial Hospital05-23-2024 Telephone encounter Note * Telephone Encounter - [...] found Please advise. Thank you. Lorena Kimbrough. [facility]05-22-2024 History of Present illness Narrative* Ayla Carrasquillo PA-C - 02/09/2024 5:09 PM EDT This note was created using Validroidter. Subjective Leana Camejo is a 84 year old male. HPI Presents with a chief complaint of bilateral shoulder pain over the past 2 weeks. He states has been keeping him up at night. He states when he lays on 1 shoulder or the other it is very painful. He has tried some Tylenol rwhx-fqe-wllsnnp. No injury to his shoulders. He states [...] diastolic CHF (congestive heart failure) ([facility]) 10/20/[address] Montes CKD (chronic kidney disease) stage 3, GFR 30-59 ml/min ([facility]) 02/20/2014 Collagenous colitis 02/04/2023 COVID-19 09/12/2021 [...] 04/07/2023 AAA stent graft repair, [facility] LAPAROSCOPY SURG RPR INITIAL INGUINAL HERNIA [...] LEFT Ayla Carrasquillo PA-C documented in this encounterMagruder Memorial Hospital05-22-2024 History of Present illness Narrative* Kae Alexander [...] PATIENT PRESENTS WITH AN IMPLANTABLE OR ATTACHED HIDE TRIMMER: No RADIOLOGY DEPARTMENT: General X-ray: Exam(s) Completed: Upper Extremity X- Ray(s): Shoulder, AP / TRUE AP bilateral Scapular Y view PERIPHERAL IV DATA: Not applicable SIGNED BY: RT Warner(R) February 09, 2024 4:32 PM documented in this encounterMagruder Memorial Hospital04-29-2024 History of Present illness Narrative* Shaun Kowalski MD - 01/17/2024 8:30 AM EDT Images from the original note were not included. Heart, Vascular and Thoracic [place] DEPARTMENT OF VASCULAR SURGERY OUTPATIENT VISIT DATE [...] aortic aneurysm (AAA) without rupture ([facility]) 08/26/201708/2017: 3.7 cm Anemia Chronic diastolic CHF (congestive heart failure) ([facility]) 10/20/[address] Montes CKD (chronic kidney disease) stage 3, GFR 30-59 ml/min ([facility]) 02/20/2014 Collagenous colitis 02/04/2023 COVID-19 09/12/2021 [...] 04/07/2023 AAA stent graft repair, [facility] LAPAROSCOPY SURG RPR INITIAL INGUINAL HERNIA [...] 2024 TIME: 8:30 AM documented in this encounterMagruder Memorial Hospital04-22-2024 Instructions* Patient Instructions* Darya Borden APRN.CNP - 01/10/2024 9:12 AM EDT Fluticasone (Flonase) nasal spray documented in this encounterMagruder Memorial Hospital04-22-2024 History of Present illness Narrative* Darya Borden [...] of aortagraft per latest scan. Referred to [facility] vascular in [place]. Review of Systems See HPI PAST MEDICAL HISTORY Diagnosis Date Abdominal aortic aneurysm (AAA) without rupture ([facility]) 08/26/201708/2017: 3.7 cm Anemia Chronic diastolic CHF (congestive heart failure) ([facility]) 10/20/[address] Montes CKD (chronic kidney disease) stage 3, GFR 30-59 ml/min ([facility]) 02/20/2014 Collagenous colitis 02/04/2023 COVID-19 09/12/2021 [...] 04/07/2023 AAA stent graft repair, [facility] LAPAROSCOPY SURG RPR INITIAL INGUINAL HERNIA [...] Calcium], Lipitor [Atorvastatin Calcium], Lisinopril, and Statins [Hfubgdy-Dry-Tyn Reductase Inhibitors] MEDICATIONS ascorbic acid, vitamin C, [...] of 3) due on 08/10/2024 Covid-19 Vaccine( season) due on 08/10/2024 Influenza Vaccine(Season Ended) [...] 441.4, ICD10: I71.40 Follow-up with vascular at [facility] as scheduled Prescription instructions reviewed with patient as applicable. Potential red flag symptoms discussed with the patient. Reviewed appropriate action plan to take if red flag symptoms occur. Patient agreeable to treatment plan. Darya Borden APRN.[employer] documented in this encounterMagruder Memorial Hospital04-22-2024 Nurse Note* Damir Summers MA - 01/10/2024 8:59 AM EDT 01/10/2024: Home BP Cuff Validated. Home BP: 127/58 Office BP: 112/72 [facility]04-22-2024 Nurse Note* Damir Summers MA - 01/10/2024 8:59 AM EDT 01/10/2024: Home BP Cuff Validated. Home BP: 127/58 Office BP: 112/72 documented in this encounterMagruder Memorial Hospital04-12-2024 Miscellaneous Notes* Telephone Encounter - Yulisa Minaya - 12/31/2023 9:26 AM EDT Referring Physician - Omid Perez MD Requesting Physician - Dr. Shaun Kowalski Diagnosis: Aneurysm of Iliac Artery Images have been pushed electronically and records. documented in this encounterMagruder [facility] Hospital03-10-2024 History of Present illness Narrative* Fide Goff RN - 11/28/2023 4:05 PM EDT Patient requesting refills as follows: Office Staff: Please contact Pt directly with any advisement Requested Prescriptions Pending Prescriptions Disp Refills doxazosin (CARDURA) 8 mg tablet 90 tablet 3 Sig: Take 1 tablet by mouth daily at bedtime. iFde Goff RN November 28, 2023 4:07 PM [...] goal align with programs offered at the [facility]? ADL's updated: No Are you experiencing any [...] pounds in a week? No Based on lean manufacturing specialist, the following disposition is advised: No symptoms or symptoms present, not severe. Routed to: No Action Needed PAVEL Education Provided this Outreach: No Fide Goff RN November 28, 2023 3:58 PM documented in this encounterMagruder [facility] Hospital11-21-2023 History of Present illness Narrative* Darya Singh APRN.[facility] - 08/10/2023 8:17 AM EST Leana Camejo [...] General (Internal Medicine) Fide Goff, RN as Miter Operator (Internal Medicine) Outside specialists seen: Cardiology- Dr. Felipe Service Liaison Representative- Dr. Dominguez Vascular- Dr. Perez GI- Dr. [...] provided Darya Singh APRN.CNP documented in this encounterMagruder Memorial Hospital11-21-2023 Instructions* Patient Instructions* Darya Singh APRN.CNP - [...] review all the medicines you take, even etgh-uua-xxvcrzk medicines. As you get older, the way [...] have certain medical conditions. documented in this encounterMagruder Memorial Hospital10-06-2023 Miscellaneous Notes* Telephone Encounter - Damir Summers [...] pharmacy. No need to notify patient. Cathleen Tnag Pss documented in this encounterMagruder Memorial Hospital08-31-2023 History of Present illness Narrative* Fide Goff [...] to talk about today? No Based on lean manufacturing specialist, the following disposition is advised: No symptoms or symptoms present, not severe. Routed to: No Action Needed PAVEL Education Provided this Outreach: Yes Fide Goff RN May 20, 2023 4:27 PM documented in this encounterMagruder Memorial Hospital07-28-2023 History of Present illness Narrative* Dallas Reed MD - 04/16/2023 10:38 AM EDT This note was created using NoteWriter. Subjective Leana Camejo is a 83 year [...] stage 3, GFR 30-59 ml/min ([facility]) Chronic Diastolic Chf (Congestive Heart Failure) ([facility]) Allergic Rhinitis Abdominal Aortic Aneurysm (Aaa) Without Rupture ([facility]) Overweight (Bmi 25.0-29.9) S/P carotid endarterectomy [...] area twice daily. APPLY TO AFFECTED AREA fu-3-gcs-btr-I5-Q12V97-DS-L-0-lok 500-1,000-500 mg-unit-mcg cap Take by mouth. DESENEX [...] Take 1 capsule by mouth once daily. [place] Q Plus glucosamine/chondr rich A sod (OSTEO [...] Perez. Dallas Reed MD documented in this encounterMagruder Memorial Hospital07-20-2023 Consult note Author Marianne Baudilio [facility] April 08, 2023 2:25pm Note Date/Time April 08, 2023 2:23 pm [facility] Medical Records Department [address] [place] [address] Counseling Note - Pharmacy 04/08/23 1421 MR#: [id number] Acct: [id number] Name: LEANA CAMEJO Rep #:[id number] : 1940 83 From: Marianne Astudillo PCP: Dr. Dallas Reed MD Status:A DM IN Y Location: [place] [address] [facility]acy [place] Med Reconciliation Pharmacy Service has performed discharge medication reconciliation for this patient. No new medications at time of discharge review. Medications reviewed are from previously reported home medications. The patient's discharge medication list was reviewed for discrepancies and discrepancies were resolved. Medications at Discharge Home Medications hftzo-8-pmv-ojs-V9-C17N85-DI-Z2-jlcutlmtngf 500 mg-1,000 unit-500 mcg cap 1 ea [...] 9 mg PO DAILY BOWELS 02/23/23 04/08/23 4797 <Electronically signed by Marianne Astudillo > Date _ Marianne Arrington Signature (if applicable): Date CC: ~ Signed [facility] Work Phone: 1(527) 885-876507-20-2023 Discharge summary Author Omid Perez [facility] April 08, 2023 6:30am Note Date/Time April 07, 2023 6:29 am [facility] Medical Records Department [address] [place] [address] Instructions for Home/Discharge Instructions 04/07/23626 MR#: [id number] Acct: [id number] Name: LEANA CAMEJO Rep #:[id number] : [...] With: Omid Perez MD When: Please call [phone] for follow-up office appointment approximately 10days Test [...] PO QODAY PRN (Reason: heart health) Held du-3-dsq-xmr-P5-Y52C59-OK-H-7-lny 1 EACH capsule 1 ea PO DAILY Hold Instructions: Resume on 04/21/23. Patient Comments: supplement Other Ambulatory Orders: CTA Abd/Pelvis W/WO Contrast (Routine) Timeframe: [id number] Facility: [facility] - Location: Cat Scan, [facility] Ordered By: Benita PEREZ Referrals / Follow Up: Dallas Reed MD [Primary Care Provider] - 04/08/23629<Electronically signed by Omid Perez MD>Omid Perez MD CC: Dr. Dieter Christianson MD; Dr. Dallas Reed MD ~ Signed [facility] Work Phone: 1(957) 556-948607-20-2023 Progress note Author Omid Perez [facility] April 08, 2023 6:29am Note Date/Time April 08, 2023 6:30 am [facility] Medical Records Department [address] [place] [address] Progress Note - Surgery 04/08/23627 MR#: [id number] Acct: [id number] Name: KERRIELEANA DALTON Rep #:[id number] : 1940 83 From: Omid Perez MD PCP: Dr. Dallas Reed MD Status:A DM IN Location: [facility] [id number]- [id number] Subjective Subjective Is doing well. No back [...] 71.5 H, Lymph % (Auto) 15.5 L, [place] % (Auto) 9.7, Eos % (Auto) 1.6, [...] Cosigner Signature (if applicable): CC: ~ Signed [facility] Work Phone: 1(585) 582-997007-19-2023 Progress note Author Omid Perez [facility] April 07, 2023 3:21pm Note Date/Time April 07, 2023 3:21 pm [facility] Medical Records Department [address] [place] [id number] Progress Note - Surgery 04/07/23 1519 MR#: [id number] Acct: [id number] Name: LEANA CAMEJO Rep #:[id number] : 1940 83 From: Omid Perez MD PCP: Dr. Dallas Reed MD Status:A DM IN Location: [place] [address]- 1 Subjective Subjective Notes some back pain. [...] Cosigner Signature (if applicable): CC: ~ Signed [facility] Work Phone: 1(739) 675-489707-19-2023 Procedure [facility] 04-07-2023 History and physical note Author Omid Perez [facility] April 07, 2023 5:46am Note Date/Time April 07, 2023 5:46 am [facility] Medical Records Department [address] [place] [address] History & Physical Exam 04/07/23 0545 MR#: [id number] Acct: [id number] Name: LEANA CAMEJO Rep #:[id number] : 1940 83 From: Omid Perez MD PCP: Dr. Dallas Reed MD Status:A DM IN Location: [place] [address] History and Physical Date of Admission: 04/07/23 Table Setter Required: No Is patient in pain?: No Allergies lisinopril Allergy (Intermediate, Verified 03/05/23 07:35) Rashatorvastatin calcium [From Lipitor] Allergy (Verified 03/05/23 07:35) Otherclonidine Allergy (Verified 03/05/23 07:35) Unknownrosuvastatin calcium [From Crestor] Allergy (Verified 03/05/23 07:35) OvkxfFbhvwhd-MLQ-DjS Reductase Inhibitor [Amgxora-Pjm-Wtx Reductase Inhibitor] Allergy (Verified 03/05/23 07:35) Other Medications cxjtf-5-irk-ivb-N9-X95N10-GI-I8-obyvulppflm 500 mg-1,000 unit-500 mcg cap 1 ea [...] QDAY PRN heart health 05/13/22 [History Confirmed 03/05/23] budesonide 3 [...] calcium [From Crestor] Allergy (Verified 02/23/23 09:38) NlpavZmbebhi-FCT-OdL Reductase Inhibitor [Dcvospx-Ens-Egp Reductase Inhibitor] Allergy (Verified 02/23/23 09:38) Other Medications pxcwv-0-fdv-wyz-S0-R14U28-KO-O4-ifwthhqlrbh 500 mg-1,000 unit-500 mcg cap 1 ea [...] Aspirin Regimen) 81 mg PO QDAY PRN [facility] 05/13/22 [History Confirmed 05/13/22] budesonide 3 [...] He states he was worked up at [facility] in [facility] had a colonoscopy and then suggest that [...] Aorta IVC Iliac vasculature or bypass grafts [address]83. The exam was diagnostic. Exam performed in [...] Referring Physician: Dallas Reed Performed By: Yuan Menon, T General General: Yes weight change; No appetite, [...] and welldeveloped Nutritional Appearance: average body habitus [facility] Head: normal to inspection Eyes [...] Perez MD; Dr. Dallas Reed MD~ Signed [facility] Work Phone: 1(854) 921-195507-19-2023 Procedure [facility] 03-04-2023 History of Present illness Narrative* Cassandra Couch LPN - 03/04/2023 9:57 AM EDT Manual Readin/70 Pulse: 64 BP Fab average: 160/76 Pulse: 62 Repeat BP Check: 166/80 Pulse: 61 160/67 57 156/82 70 150/70 61 * Dallas Reed MD - 03/04/2023 9:49 AM EDT This note was created using Carsquare. Subjective Leana Camejo is a 83 year [...] (HCC) Chronic Diastolic Chf (Congestive Heart Failure) ([facility]) Allergic Rhinitis Abdominal Aortic Aneurysm (Aaa) Without Rupture ([facility]) Overweight (Bmi 25.0-29.9) S/P carotid endarterectomy [...] area twice daily. APPLY TO AFFECTED AREA le-8-wqf-rfj-M5-B98F40-YD-O-6-afa 500-1,000-500 mg-unit-mcg cap Take by mouth. DESENEX [...] Take 1 capsule by mouth once daily. [place] Q Plus glucosamine/chondr rich A sod (OSTEO [...] CTA. Dallas Reed MD documented in this encounterMagruder Memorial Hospital05-15-2023 Instructions* Patient Instructions* Aubrie Gomez PA-C - 02/01/2023 11:00 AM EDT Flonase or saline nasal spray. If you use Flonase and have any bloody noses, stop the flonase. documented in this encounterMag[facility] History of Present illness Narrative* Aubrie Gomez PA-C - 02/01/2023 10:54 AM EDT 02/01/2023 [...] aortic aneurysm (AAA) without rupture ([facility]) 08/26/201708/2017: 3.7 cm Anemia Chronic diastolic CHF (congestive heart failure) ([facility]) 10/20/[address] Montes CKD (chronic kidney disease) stage 3, GFR 30-59 ml/min ([facility]) 02/20/2014 COVID-19 09/12/2021 DDD (degenerative disc disease), lumbar 08/26/2017 Diarrhea Diverticulosis of colon (without mention of hemorrhage) Hematoma of right iliopsoas muscle 06/21/2019 Internal hemorrhoids without mention of complication Lumbar radiculopathy 08/26/2017 Mixed hyperlipidemia Hyperlipidemia S/P carotid endarterectomy right 01/20/2021 Unspecified essential hypertension Essential hypertension ALLERGIES Clonidine, Crestor [Rosuvastatin Calcium], Lipitor [Atorvastatin Calcium], Lisinopril, and Statins [Aluxixs-Hzl-Qle Reductase Inhibitors] MEDICATIONS Current Outpatient Medications Medication Sig budesonide, enteric coated (ENTOCORT EC) 3 mg 24 hr capsule Take 3 capsules by mouth once daily. triamcinolone acetonide (KENALOG) 0.1 % cream apply to AFFECTED AREAS OF THE UPPER EXTREMITIES TWICE DAILY FOR ... (REFER TO PRESCRIPTION NOTES). pimecrolimus (ELIDEL) 1 % cream Apply to affected area twice daily. APPLY TO AFFECTED AREA [id number] 500-1,000-500 mg-unit-mcg cap Take by mouth. DESENEX [...] Take 1 capsule by mouth once daily. [place] Q Plus glucosamine/chondr rich A sod (OSTEO [...] flags and when to seek care sooner. Aubrie Gomez PA-C documented in this encounterMag[facility]05-02-[facility]23 Miscellaneous Notes* Telephone Encounter - Lorena Stubbs Ma - 01/19/2023 3:49 PM EDT Approved, pharmacy notified Submitted budesonide auth to insurance, pending response Lorena Stubbs CMA documented in this encounterMagr[facility]04-28-[facility]23 Nurse Note* Cathleen Rodriguez RN - 01/15/2023 12:[address] Rodriguez at bedside to speak to patient. Verbalizes understanding. OK to d/c. [facility]* Cathleen Rodriguez RN - 01/15/2023 12:[address] Rodriguez at bedside to speak to patient. Verbalizes understanding. OK to d/c. documented in this encounterMagruder [facility] Hospital04-28-2023 History and physical note * Lisa Rodriguez [...] MAC Additional Comments: None Lisa Rodriguez MD [facility] Work Phone: [phone] History and physical note* Lisa Rodriguez MD [...] None Lisa Rodriguez MD documented in this encounterMagruder [facility] Hospital04-20-2023 Instructions* Patient Instructions* Lisa Rodriguez MD - [...] If you do not have a responsible catering truck driver (family member or friend) with you [...] at your local pharmacy or drugstore pharmacy. 1 08/2019 Bowel Preparation Instructions for: Golytely, Nulytely, [...] your exam. 2 08/2019 documented in this encounterMagruder [facility] Hospital04-20-2023 History of Present illness Narrative* Lisa Rodriguez [...] nausea, vomiting, loss of appetite, hematemesis, bleeding [place], unexplained weight loss, tenesmus, nocturnal diarrhea. His stool calprotectin was elevated. C diff was negative. He had screening colonoscopy in May 2020 which was unremarkable. PAST MEDICAL HISTORY Diagnosis Date Abdominal aortic aneurysm (AAA) without rupture ([facility]) 08/26/201708/2017: 3.7 cm Anemia Chronic diastolic CHF (congestive heart failure) ([facility]) 10/20/[address] Montes CKD (chronic kidney disease) stage 3, GFR 30-59 ml/min ([facility]) 02/20/2014 COVID-19 09/12/2021 DDD (degenerative disc [...] area twice daily. APPLY TO AFFECTED AREA [id number] 500-1,000-500 mg-unit-mcg cap Take by mouth. DESENEX [...] Take 1 capsule by mouth once daily. [place] Q Plus glucosamine/chondr rich A sod (OSTEO [...] 01/07/23 TIME: 4:06 PM documented in this encounterMagruder [facility] Hospital04-12-2023 Instructions* Patient Instructions* Dallas Reed MD - 12/30/2022 12:27 PM EDT AVOID DAIRY. documented in this encounterMagruder [facility] Hospital04-12-2023 History of Present illness Narrative* Dallas Reed MD - 12/30/2022 12:15 PM EDT This note was created using Validroidter. Subjective Leana Camejo is a 82 year old male. He started having diarrhea 12/19, with loose to watery, non bloody stools 2-4 times per day. He did not feel ill. His was not ill. There was no unusual food intake, antibiotic use, or travel. He went to [facility] last week and was advised [...] stage 3, GFR 30-59 ml/min ([facility]) Chronic Diastolic Chf (Congestive Heart Failure) ([facility]) Allergic Rhinitis Abdominal Aortic Aneurysm (Aaa) Without Rupture ([facility]) Overweight (Bmi 25.0-29.9) S/P carotid endarterectomy [...] Take 1 capsule by mouth once daily. [place] Q Plus glucosamine/chondr rich A sod (OSTEO [...] Perez. Dallas Reed MD documented in this encounterMagruder [facility] Hospital10-14-2022 History of Present illness Narrative* Gavin Rivero, DUSTIN.[employer] - 07/03/2022 5:05 PM EDT Subjective HPI [...] diastolic CHF (congestive heart failure) ([facility]) 10/20/[address] Montes CKD (chronic kidney disease) stage 3, GFR 30-59 ml/min ([facility]) 02/20/2014 COVID-19 09/12/2021 DDD (degenerative disc [...] Calcium], Lipitor [Atorvastatin Calcium], Lisinopril, and Statins [Hxopxbk-Pqv-Dsd Reductase Inhibitors] MEDICATIONS losartan (COZAAR) 100 mg [...] Take 81 mg by mouth once daily. [place]-3 1,050 mg, Fish Oil, 1,050-1,200 mg cap Take by mouth twice daily. COMPOUNDED PRESCRIPTION Take 1 capsule by mouth once daily. 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 Patient was educated on [...] of care. This note was generated using Razmir software. It may contain errors in wording, punctuation, or spelling. Gavin Rivero APRN.[employer] documented in this encounterMagruder [facility] Hospital09-06-2022 Miscellaneous Notes* Telephone Encounter - Maribell Huston LPN - 05/26/2022 11:47 AM EDT Pt has refills of carvedilol. The others would be needed. * Telephone Encounter - Vicky Garcia Pss - 05/26/2022 8:59 AM EDT Pharmacy verified in [facility] Patient has been identified by name [...] advise. Vicky Garcia Pss documented in this encounterMagruder [facility] Hospital06-22-2022 Miscellaneous Notes* Telephone Encounter - Vicky Garcia Pss - 03/11/2022 9:18 AM EDT Patient had stopped taking this med, but spoke to his make up man who would like him to continue taking, so patient is in need of a new refill. Pharmacy is the same [facility] as the other med. colestipol (COLESTID) 1 gram tablet (Discontinued) 180 tablet 1 02/14/2021 07/09/2021 Sig: Take 1 tablet by mouth twice daily. For cholesterol. * Telephone Encounter - Vicky Garcia Pss - 03/11/2022 9:17 AM EDT Pharmacy verified in [facility] Patient has been identified by name [...] Vicky Garcia Pss 1 documented in this encounterMagruder [facility] Hospital06-01-2022 Miscellaneous Notes* Telephone Encounter - Chrissy Worrell - 02/18/2022 8:24 AM EDT Patient given results and verbalized understanding of instructions given. Chrissy Worrell * Telephone Encounter - Elsie Boudreaux APRN.[employer] - 02/18/2022 7:38 AM EDT Please inform [...] Dr. Reed as well. documented in this encounterMagruder [facility] Hospital05-31-2022 History of Present illness Narrative* Nona Maloney APRN.[employer] - 02/17/2022 11:48 AM EDT CC: Patient [...] aortic aneurysm (AAA) without rupture ([facility]) 08/26/201708/2017: 3.7 cm Anemia Chronic diastolic CHF (congestive heart failure) ([facility]) 10/20/[address] Montes CKD (chronic kidney disease) stage 3, GFR 30-59 ml/min ([facility]) 02/20/2014 COVID-19 09/12/2021 DDD (degenerative disc [...] Calcium], Lipitor [Atorvastatin Calcium], Lisinopril, and Statins [Gxloicw-Uxn-Loa Reductase Inhibitors] MEDICATIONS carvedilol (COREG) 12.5 mg [...] Take 81 mg by mouth once daily. [place]-3 1,050 mg, Fish Oil, 1,050-1,200 mg cap Take by mouth twice daily. COMPOUNDED PRESCRIPTION Take 1 capsule by mouth once daily. [place] Q Plus glucosamine/chondr rich A sod (OSTEO [...] plan. Nona Maloney APRN.SHAWNA documented in this encounterMagruder [facility] Hospital05-24-2022 History of Present illness Narrative* Janelle Looneydameon QUINTERO - 02/10/2022 9:05 AM EDT Manual Readin/76 [...] PCP. Janelle Sanchez LPN documented in this encounterMagruder Memorial Hospital05-23-2022 History of Present illness Narrative* Denver Elizalde RN - 02/09/2022 12:59 PM EDT in[employer]ight CDM Engagement Provider Action/FYI: Call to Pt left a message to verify CHF/ CKD symptom status and needs provided. Insight Questionnaire location reminder provided. Contact Made with Patient: No, second attempt, left message. Blaise Camejo. This is Fide Goff RN your Monitoring Manager [facility] the [facility]. I am calling to check in with you concerning the MyChart questionnaire you have been receiving from me. I will call you again next week and am looking forward to speaking with you. (Care Coordinatorenters next week's date in next patient outreach) Fide Goff RN February 09, 2022 12:59 PM documented in this encounterMagruder [facility] Hospital05-20-2022 History of Present illness Narrative* Denver Elizalde RN - 02/06/2022 3:38 PM EDT [employer] CDM Engagement Provider Action/FYI: Call to Pt left message to verify CHF/ CKD or other symptom status and needs. Contact Made with Patient: No, first attempt, left message. Blaise Camejo. This is Fide Goff RN your Monitoring Manager [facility] the [facility]. I am calling to check in with you concerning the MyChart questionnaire you have been receiving from me. I will call you again tomorrow and am looking forward to speaking with you. (Monitoring Manager enters next day in next patient outreach) Fide Goff RN February 06, 2022 3:38 PM documented in this encounterMagruder [facility] Hospital04-26-2022 History of Present illness Narrative* Dallas Reed MD - 01/13/2022 8:56 AM EDT This note was created using Validroidter. Subjective Leana Camejo is a 82 year old male. He recovered from Covid in August. He went to [facility] in [facility] for IV vitamin infusions. He just had [...] (HCC) Chronic Diastolic Chf (Congestive Heart Failure) ([facility]) Allergic Rhinitis Abdominal Aortic Aneurysm (Aaa) Without Rupture ([facility]) Overweight (Bmi 25.0-29.9) S/P carotid endarterectomy [...] tablet by mouth twice daily with meals. [place]-3 1,050 mg, Fish Oil, 1,050-1,200 mg cap Take by mouth twice daily. COMPOUNDED PRESCRIPTION Take 1 capsule by mouth once daily. [place] Q Plus glucosamine/chondr rich A sod (OSTEO [...] week from online doctor (Covid 19 prevention) (Patient not taking: Reported on [...] BASIC Dallas Reed MD documented in this encounterMagruder [facility] Hospital04-26-2022 Evaluation note* Diagnosis Stage 3a chronic kidney disease (HCC)- Primary Chronic diastolic CHF (congestive heart failure) (HCC) Chronic diastolic heart failure Abdominal aortic aneurysm (AAA) without rupture (HCC) BENIGN HYPERTENSION Essential hypertension, benign Other hyperlipidemia documented in this encounter [facility]03[facility] History of Present illness Narrative* Denver Elizalde RN - 12/08/2021 5:06 PM EDT [employer] CDM Engagement Provider Action/FYI: Spk with Pt who reports no CHF / CKD symptoms or needs. Contact Made with Patient: Yes Patient identified by name and . Discussed care with patient Blaise turner name is Fide Goff RN your Monitoring Manager [facility]. I am reaching out today because [...] 08, 2021 5:06 PM documented in this encounterMagruder Memorial Hospital12-07-2017 History of Past illness Narrative* Problem Noted Date Resolved Date DDD (degenerative disc disease), lumbar 08/26/20 17 03/15/2018 Lumbar radiculopathy 08/26/2017 03/15/2018 Recurrent ventral incisional hernia 07/01/2015 08/26/2017 Unilateral inguinal hernia without obstruction o r gangrene 07/01/2015 08/26/2017 Well adult exam 01/09/2015 03/15/2018 Overview: last done 01/09/2015 Aneurysm of abdominal aorta 01/11/201212/20 documented as of this encounter (statuses as of 12/08/2021) [facility] of Past illness Narrative* Problem Noted Date Resolved Date DDD (degenerative disc disease), lumbar 08/26/20 17 03/15/2018 Lumbar radiculopathy 08/26/2017 03/15/2018 Recurrent ventral incisional hernia 07/01/2015 08/26/2017 Unilateral inguinal hernia without obstruction o r gangrene 07/01/2015 08/26/2017 Well adult exam 01/09/2015 03/15/2018 Overview: last done 01/09/2015 Aneurysm of abdominal aorta 01/11/201212/20 documented as of this encounter (statuses as of 01/13/2022) [facility] of [facility] illness Narrative* Problem Noted Date Resolved Date DDD (degenerative disc disease), lumbar 08/26/20 17 03/15/2018 Lumbar radiculopathy 08/26/2017 03/15/2018 Recurrent ventral incisional hernia 07/01/2015 08/26/2017 Unilateral inguinal hernia without obstruction o r gangrene 07/01/2015 08/26/2017 Well adult exam 01/09/2015 03/15/2018 Overview: last done 01/09/2015 Aneurysm of abdominal aorta 01/11/201212/20 documented as of this encounter (statuses as of 02/06/2022) [facility] Narrative* Problem Noted Date Resolved Date DDD (degenerative disc disease), lumbar 08/26/20 17 03/15/2018 Lumbar radiculopathy 08/26/2017 03/15/2018 Recurrent ventral incisional hernia 07/01/2015 08/26/2017 Unilateral inguinal hernia without obstruction o r gangrene 07/01/2015 08/26/2017 Well adult exam 01/09/2015 03/15/2018 Overview: last done 01/09/2015 Aneurysm of abdominal aorta 01/11/201212/20 documented as of this encounter (statuses as of 02/09/2022) [facility] Narrative* Problem Noted Date Resolved Date DDD (degenerative disc disease), lumbar 08/26/20 17 03/15/2018 Lumbar radiculopathy 08/26/2017 03/15/2018 Recurrent ventral incisional hernia 07/01/2015 08/26/2017 Unilateral inguinal hernia without obstruction o r gangrene 07/01/2015 08/26/2017 Well adult exam 01/09/2015 03/15/2018 Overview: last done 01/09/2015 Aneurysm of abdominal aorta 01/11/201212/20 documented as of this encounter (statuses as of 02/10/2022) [facility] Narrative* Problem Noted Date Resolved Date DDD (degenerative disc disease), lumbar 08/26/20 17 03/15/2018 Lumbar radiculopathy 08/26/2017 03/15/2018 Recurrent ventral incisional hernia 07/01/2015 08/26/2017 Unilateral inguinal hernia without obstruction o r gangrene 07/01/2015 08/26/2017 Well adult exam 01/09/2015 03/15/2018 Overview: last done 01/09/2015 Aneurysm of abdominal aorta 01/11/201212/20 documented as of this encounter (statuses as of 02/17/2022) [facility] Narrative* Problem Noted Date Resolved Date DDD (degenerative disc disease), lumbar 08/26/20 17 03/15/2018 Lumbar radiculopathy 08/26/2017 03/15/2018 Recurrent ventral incisional hernia 07/01/2015 08/26/2017 Unilateral inguinal hernia without obstruction o r gangrene 07/01/2015 08/26/2017 Well adult exam 01/09/2015 03/15/2018 Overview: last done 01/09/2015 Aneurysm of abdominal aorta 01/11/201212/20 documented as of this encounter (statuses as of 02/18/2022) [facility] Narrative* Problem Noted Date Resolved Date DDD (degenerative disc disease), lumbar 08/26/20 17 03/15/2018 Lumbar radiculopathy 08/26/2017 03/15/2018 Recurrent ventral incisional hernia 07/01/2015 08/26/2017 Unilateral inguinal hernia without obstruction o r gangrene 07/01/2015 08/26/2017 Well adult exam 01/09/2015 03/15/2018 Overview: last done 01/09/2015 Aneurysm of abdominal aorta 01/11/201212/20 documented as of this encounter (statuses as of 03/13/2022) [facility] Narrative* Problem Noted Date Resolved Date DDD (degenerative disc disease), lumbar 08/26/20 17 03/15/2018 Lumbar radiculopathy 08/26/2017 03/15/2018 Recurrent ventral incisional hernia 07/01/2015 08/26/2017 Unilateral inguinal hernia without obstruction o r gangrene 07/01/2015 08/26/2017 Well adult exam 01/09/2015 03/15/2018 Overview: last done 01/09/2015 Aneurysm of abdominal aorta 01/11/201212/20 documented as of this encounter (statuses as of 05/26/2022) [facility] Narrative* Problem Noted Date Resolved Date DDD (degenerative disc disease), lumbar 08/26/20 17 03/15/2018 Lumbar radiculopathy 08/26/2017 03/15/2018 Recurrent ventral incisional hernia 07/01/2015 08/26/2017 Unilateral inguinal hernia without obstruction o r gangrene 07/01/2015 08/26/2017 Well adult exam 01/09/2015 03/15/2018 Overview: last done 01/09/2015 Aneurysm of abdominal aorta 01/11/201212/20 documented as of this encounter (statuses as of 07/03/2022) [facility] Narrative* Problem Noted Date Resolved Date DDD (degenerative disc disease), lumbar 08/26/20 17 03/15/2018 Lumbar radiculopathy 08/26/2017 03/15/2018 Recurrent ventral incisional hernia 07/01/2015 08/26/2017 Unilateral inguinal hernia without obstruction o r gangrene 07/01/2015 08/26/2017 Well adult exam 01/09/2015 03/15/2018 Overview: last done 01/09/2015 Aneurysm of abdominal aorta 01/11/201212/20 documented as of this encounter (statuses as of 12/31/2022) [facility] Narrative* Problem Noted Date Resolved Date DDD (degenerative disc disease), lumbar 08/26/20 17 03/15/2018 Lumbar radiculopathy 08/26/2017 03/15/2018 Recurrent ventral incisional hernia 07/01/2015 08/26/2017 Unilateral inguinal hernia without obstruction o r gangrene 07/01/2015 08/26/2017 Well adult exam 01/09/2015 03/15/2018 Overview: last done 01/09/2015 Aneurysm of abdominal aorta 01/11/201212/20 documented as of this encounter (statuses as of 01/08/2023) [facility] Narrative* Problem Noted Date Resolved Date DDD (degenerative disc disease), lumbar 08/26/20 17 03/15/2018 Lumbar radiculopathy 08/26/2017 03/15/2018 Recurrent ventral incisional hernia 07/01/2015 08/26/2017 Unilateral inguinal hernia without obstruction o r gangrene 07/01/2015 08/26/2017 Well adult exam 01/09/2015 03/15/2018 Overview: last done 01/09/2015 Aneurysm of abdominal aorta 01/11/201212/20 documented as of this encounter (statuses as of 01/13/2023) [facility] Narrative* Problem Noted Date Resolved Date DDD (degenerative disc disease), lumbar 08/26/20 17 03/15/2018 Lumbar radiculopathy 08/26/2017 03/15/2018 Recurrent ventral incisional hernia 07/01/2015 08/26/2017 Unilateral inguinal hernia without obstruction o r gangrene 07/01/2015 08/26/2017 Well adult exam 01/09/2015 03/15/2018 Overview: last done 01/09/2015 Aneurysm of abdominal aorta 01/11/201212/20 documented as of this encounter (statuses as of 01/19/2023) [facility] Narrative* Problem Noted Date Resolved Date DDD (degenerative disc disease), lumbar 08/26/20 17 03/15/2018 Lumbar radiculopathy 08/26/2017 03/15/2018 Recurrent ventral incisional hernia 07/01/2015 08/26/2017 Unilateral inguinal hernia without obstruction o r gangrene 07/01/2015 08/26/2017 Well adult exam 01/09/2015 03/15/2018 Overview: last done 01/09/2015 Aneurysm of abdominal aorta 01/11/201212/20 documented as of this encounter (statuses as of 01/20/2023) [facility] Narrative* Problem Noted Date Resolved Date DDD (degenerative disc disease), lumbar 08/26/20 17 03/15/2018 Lumbar radiculopathy 08/26/2017 03/15/2018 Recurrent ventral incisional hernia 07/01/2015 08/26/2017 Unilateral inguinal hernia without obstruction o r gangrene 07/01/2015 08/26/2017 Well adult exam 01/09/2015 03/15/2018 Overview: last done 01/09/2015 Aneurysm of abdominal aorta 01/11/201212/20 documented as of this encounter (statuses as of 02/01/2023) [facility]arrative* Problem Noted Date Resolved Date DDD (degenerative disc disease), lumbar 08/26/20 17 03/15/2018 Lumbar radiculopathy 08/26/2017 03/15/2018 Recurrent ventral incisional hernia 07/01/2015 08/26/2017 Unilateral inguinal hernia without obstruction o r gangrene 07/01/2015 08/26/2017 Well adult exam 01/09/2015 03/15/2018 Overview: last done 01/09/2015 Aneurysm of abdominal aorta 01/11/201212/20 documented as of this encounter (statuses as of 03/04/2023) [facility]arrative* Problem Noted Date Diagnosed Date Resolved Date DDD (degenerative disc disease), lumbar 08/26/2017 03/15/2018 Lumbar radiculopathy 08/26/2017 018 Recurrent ventral incisional hernia 07/01/2015 08/26/2017 Unilateral inguinal hernia w ithout obstruction or gangrene 07/01/2015 08/26/2017 Well adult exam 01/09/2015 03/15/2018 Overview: last done 01/09/2015 Aneurysm of abdominal aorta 01/11/2012 01/12/2013 documented as of this encounter (statuses as of 04/16/2023) [facility]arrative* Problem Noted Date Diagnosed Date Resolved Date DDD (degenerative disc disease), lumbar 08/26/2017 03/15/2018 Lumbar radiculopathy 08/26/2017 018 Recurrent ventral incisional hernia 07/01/2015 08/26/2017 Unilateral inguinal hernia w ithout obstruction or gangrene 07/01/2015 08/26/2017 Well adult exam 01/09/2015 03/15/2018 Overview: last done 01/09/2015 Aneurysm of abdominal aorta 01/11/2012 01/12/2013 documented as of this encounter (statuses as of 05/21/2023) [facility]arrative* Problem Noted Date Diagnosed Date Resolved Date DDD (degenerative disc disease), lumbar 08/26/2017 03/15/2018 Lumbar radiculopathy 08/26/2017 018 Recurrent ventral incisional hernia 07/01/2015 08/26/2017 Unilateral inguinal hernia w ithout obstruction or gangrene 07/01/2015 08/26/2017 Well adult exam 01/09/2015 03/15/2018 Overview: last done 01/09/2015 Aneurysm of abdominal aorta 01/11/2012 01/12/2013 documented as of this encounter (statuses as of 06/26/2023) [facility] Narrative* Problem Noted Date Diagnosed Date Resolved Date DDD (degenerative disc disease), lumbar 08/26/2017 03/15/2018 Lumbar radiculopathy 08/26/2017 018 Recurrent ventral incisional hernia 07/01/2015 08/26/2017 Unilateral inguinal hernia w ithout obstruction or gangrene 07/01/2015 08/26/2017 Well adult exam 01/09/2015 03/15/2018 Overview: last done 01/09/2015 Aneurysm of abdominal aorta 01/11/2012 01/12/2013 documented as of this encounter (statuses as of 08/10/2023) [facility]arrative* Problem Noted Date Diagnosed Date Resolved Date DDD (degenerative disc disease), lumbar 08/26/2017 03/15/2018 Lumbar radiculopathy 08/26/2017 018 Recurrent ventral incisional hernia 07/01/2015 08/26/2017 Unilateral inguinal hernia w ithout obstruction or gangrene 07/01/2015 08/26/2017 Well adult exam 01/09/2015 03/15/2018 Overview: last done 01/09/2015 Aneurysm of abdominal aorta 01/11/2012 01/12/2013 documented as of this encounter (statuses as of 12/01/2023) [facility] Narrative* Problem Noted Date Diagnosed Date Resolved Date DDD (degenerative disc disease), lumbar 08/26/2017 03/15/2018 Lumbar radiculopathy 08/26/2017 018 Recurrent ventral incisional hernia 07/01/2015 08/26/2017 Unilateral inguinal hernia w ithout obstruction or gangrene 07/01/2015 08/26/2017 Well adult exam 01/09/2015 03/15/2018 Overview: last done 01/09/2015 Aneurysm of abdominal aorta 01/11/2012 01/12/2013 documented as of this encounter (statuses as of 12/31/2023) [facility] History of Past illness Narrative* Problem Noted Date Diagnosed Date Resolved Date DDD (degenerative disc disease), lumbar 08/26/2017 03/15/2018 Lumbar radiculopathy 08/26/2017 018 Recurrent ventral incisional hernia 07/01/2015 08/26/2017 Unilateral inguinal hernia w ithout obstruction or gangrene 07/01/2015 08/26/2017 Well adult exam 01/09/2015 03/15/2018 Overview: last done 01/09/2015 Aneurysm of abdominal aorta 01/11/2012 01/12/2013 documented as of this encounter (statuses as of 01/05/2024) [facility] O[facility] Morales [facility] Note Date/Time May 22, 2025 5:26pm [facility] Medical Records Department [address] [place] [address] Instructions for Home/Discharge Instructions 05/22/25 1723 MR#: [id number] Acct: [id number] Name: LEANA CAMEJO Rep #:[id number] : 1940 85 From: Olamide Morales MD PCP: Dr. Dallas Reed MD Status:A DM IN Discharge Instructions DC O2, CPAP, BIPAP needs Home O2 Discharge instructions: No Dressing / Incision Discharge Activity: Return to Normal Activity Weight Bearing Status: Weight bearing as tolerated Dressing / Incision Call your doctor if you observe: Fever of 101 or Higher Follow Up Care Test Results: Test results from this visit will be discussed in further detail at your follow- up appointment, if applicable. Discharge Plan Admission Admit Date/Time: 05/21/25 04:22 Primary Reason for Your Visit: chest pain Attending Provider: Olamide Morales Primary Care Provider: Dallas Reed Consulting Providers: Emily Horner; Tamera Jorgensen; Marcel Cordova; Randy Soler; Jaciel Bahena; Dedrick Zamarripa; Gilmar Mueller; Donato Longoria; Cameron Leiva; Lorraine Mcdowell; Alexandru Laughlin; Beronica Turcios; Elisha Eason; Jm Wilson; Sinan Toro; Mike Jay NP; Kylah Arias; Jeremy Sebastian; Cameron Solares; Gricel Donald Instructions Patient Instructions: ED Heart Disease Risk Factors Discharge Orders/Prescriptions Prescriptions: Continued multivitamin Tablet 1 tab PO DAILY losartan 100 mg tablet 100 mg PO DAILY ascorbic acid (vitamin C) 500 mg capsule 1,000 mg PO DAILY magnesium oxide 400 mg (241.3 mg magnesium) tablet 400 mg PO DAILY doxazosin 8 mg tablet 8 mg PO QHS hydralazine 100 mg tablet 100 mg PO TID nifedipine 60 mg tablet extended release 60 mg PO DAILY ferrous sulfate [Feosol] 325 mg (65 mg iron) tablet 325 mg PO DAILY cholecalciferol (vitamin D3) [Vitamin D3] 125 mcg (5,000 unit) tablet 125 mcg PO DAILY ezetimibe 10 mg tablet 10 mg PO DAILY Nexletol 180 mg tablet 180 mg PO DAILY levothyroxine 25 mcg tablet 25 mcg PO DAILY carvedilol 6.25 mg tablet 6.25 mg PO BID furosemide 20 mg tablet 20 mg PO DAILY Referrals / Follow Up: Alexandru Laughlin MD [Med Staff - Active Staff] - Within 2 Weeks Dallas Reed MD [Primary Care Provider] - Within 1 Week Disposition Disposition (needs filled in before D/C Order can be placed): Home, Self Care 05/22/25 3626<Electronically signed by Olamide Morales MD>Olamide Morales MD CC: SHELLIE Jay; Dr. Marcel Cordova MD; Dr. Tamera Jorgensen MD; Dr. Emily Horner MD; Dr. Jaciel Bahena MD; Dr. Randy Soler MD; Dr. Dedrick Zamarripa MD; Dr. Gilmar Mueller MD; Dr. Donato Longoria MD; Dr. Cameron Leiva DO; Dr. Cameron Solares DO; Dr. Lorraine Mcdowell MD; Dr. Gricel Donald MD; Dr. Alexandru Laughlin MD; Dr. Beronica Turcios MD; Dr. Sinan Toro MD; Dr. Elisha Eason MD; Dr. Jm Wilson MD; Dr. 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 Abdominal aortic 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 Essential hypertension chron ic Hyperlipidemia [facility] Work Phone: Evaluation note* Diagnosis BENIGN HYPERTENSION- Primary Essential hypertension, benign [facility] Diagnosis Cough- Primary Acute upper respiratory infection, unspecified documented in this encounter [facility] note* Diagnosis Other hyperlipidemia documented in this encounter [facility] note* Diagnosis BENIGN HYPERTENSION Essential hypertension, benign Chronic diastolic CHF (congestive heart failure) (HCC) Chronic diastolic heart failure documented in this encounter [facility] note* Diagnosis Loose stools- Primary Abnormal feces [facility]* Diagnosis Diarrhea, unspecified type- Primary Chronic diastolic CHF (congestive heart failure) (HCC) Chronic diastolic heart failure Abdominal aortic aneurysm (AAA) without rupture, unspecified part (HCC) [facility]* Diagnosis Diarrhea, unspecified type documented in this encounter [facility] noteNo assessment information availableWCleveland Clinic Foundation Work Phone: Evaluation note* Diagnosis Acute maxillary sinusitis, recurrence not specified- Primary Acute otitis media, right Unspecified otitis media [facility]* Diagnosis Primary hypertension- Primary Unspecified essential hypertension Abdominal aortic aneurysm (AAA) without rupture, unspecified part (HCC) documented in this encounter [facility] note* Diagnosis Onset Date Resolution Status Abdominal aortic 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 Chronic renal failure, stage 3 (moderate) chronic Aneurysm, 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 Chronic renal failure, stage 3 (moderate) chronic Abdominal aortic 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 [facility] Work Phone: Evaluation note* Diagnosis Primary hypertension- Primary Unspecified essential hypertension S/P AAA repair Other postprocedural status [facility]* Diagnosis Onset Date Resolution Status Abdominal aortic 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 Chronic renal failure, stage 3 (moderate) chronic Aneurysm, 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 Chronic renal failure, stage 3 (moderate) chronic Abdominal aortic 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 Aneurysm, 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 [facility] Work Phone: evaluation note* Diagnosis Stage 3 chronic kidney disease, unspecified whether stage 3a or 3b CKD (HCC)- Primary [facility]* Diagnosis BENIGN HYPERTENSION Essential hypertension, benign Chronic diastolic CHF (congestive heart failure) (HCC) Chronic diastolic heart failure [facility]* Diagnosis Onset Date Resolution Status Aneurysm, 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 Chronic renal failure, stage 3 (moderate) [facility] Work Phone: Evaluation note* Diagnosis Medicare annual wellness visit, subsequent- Primary [facility]* Diagnosis Encounter for other preprocedural examination- Primary [facility]* Diagnosis Primary hypertension- Primary Unspecified essential hypertension Allergic rhinitis, unspecified seasonality, unspecified trigger Chronic diastolic CHF (congestive heart failure) (HCC) Chronic diastolic heart failure Stage 3a chronic kidney disease (HCC) Other hyperlipidemia Abdominal aortic aneurysm (AAA) without rupture, unspecified part (HCC) [facility]* Diagnosis 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)- Primary S/P carotid endarterectomy right Other postprocedural status Mixed hyperlipidemia BPH with urinary obstruction Hypertrophy of prostate with urinary obstruction and other lower urinary tract symptoms (LUTS) Stage 3a chronic kidney disease (HCC) Chronic diastolic CHF (congestive heart failure) (HCC) Chronic diastolic heart failure [facility]* Diagnosis Acute pain of both shoulders- Primary Acute pain of both shoulders [facility]* Diagnosis BENIGN HYPERTENSION Essential hypertension, benign [facility]* Diagnosis Chronic right shoulder pain- Primary Pain in joint, shoulder region [facility] Diagnosis Primary hypertension Unspecified essential hypertension [facility]* Diagnosis Dizziness- Primary Dizziness and giddiness Chronic diastolic CHF (congestive heart failure) (HCC) Chronic diastolic heart failure BENIGN HYPERTENSION Essential hypertension, benign Weight loss Loss of weight Fatigue, unspecified type History of anemia Personal history of diseases of blood and blood-forming organs [facility]* Diagnosis Acute pain of both shoulders [facility]* Diagnosis TIA (transient ischemic attack)- Primary Unspecified transient cerebral ischemia S/P carotid endarterectomy right Other postprocedural status Chronic diastolic CHF (congestive heart failure) (HCC) Chronic diastolic heart failure Stage 3b chronic kidney disease (HCC) Thrombocytopenia (HCC) Thrombocytopenia, unspecified Abnormal TSH Other abnormal clinical finding Mixed hyperlipidemia [facility]* Diagnosis Diarrhea, unspecified type [facility]* Diagnosis Procedure not carried out- Primary Procedure not carried out for other reasons [facility]* Diagnosis Spigelian hernia- Primary Other ventral hernia without mention of obstruction or gangrene 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 Other postprocedural status Pancreatic cyst Cyst and pseudocyst of pancreas Splenomegaly [facility]* Diagnosis Medicare annual wellness visit, subsequent- [...] kidney disease (HCC) [facility]* Diagnosis Subclinical hypothyroidism- Primary Other specified acquired hyp[facility] Primary hypertension Unspecified essential hypertension [facility] Diagnosis Abrasion of head, initial encounter- Primary [facility]* Diagnosis Contusion of scalp, subsequent encounter- Primary Fall, subsequent encounter Proximal leg weakness Other musculoskeletal symptoms referable to limbs [facility] Diagnosis Fall, subsequent encounter- Primary Contusion [...] abdominal pain- Primary [facility] Diagnosis Left lower quadrant abdominal pain [facility] Diagnosis Essential hypertension- Primary Unspecified essential hypertension Chronic diastolic CHF (congestive heart failure) (HCC) Chronic diastolic heart failure [facility] Diagnosis Fall, subsequent encounter- Primary Proximal leg weakness Other musculoskeletal symptoms referable to limbs Contusion of scalp, subsequent encounter [facility] Diagnosis Fall, subsequent encounter- Primary Proximal leg weakness Other musculoskeletal symptoms referable to limbs Contusion of scalp, subsequent encounter [facility] Diagnosis 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 Chronic diastolic CHF (congestive heart failure) (HCC) Chronic diastolic heart failure Stage 3b chronic kidney disease (HCC) Essential hypertension Unspecified essential hypertension [facility] Diagnosis Essential hypertension Unspecified essential hypertension [facility] Diagnosis Proximal leg weakness- Primary Other musculoskeletal symptoms referable to limbs [facility] Diagnosis Proximal leg weakness- Primary Other musculoskeletal symptoms referable to limbs Fall, subsequent encounter Contusion of scalp, subsequent encounter [facility] Diagnosis Proximal leg weakness- Primary Other musculoskeletal symptoms referable to limbs Fall, subsequent encounter Contusion of scalp, subsequent encounter [facility] Diagnosis Proximal leg weakness- Primary Other musculoskeletal symptoms referable to limbs Fall, subsequent encounter Contusion of scalp, subsequent encounter [facility] Diagnosis BENIGN HYPERTENSION Essential hypertension, benign [facility]* Diagnosis Chronic diastolic CHF (congestive heart failure) (HCC) Chronic diastolic heart failure [facility]* Diagnosis Heart failure, unspecified HF chronicity, unspecified heart failure type (HCC)- Primary [facility]* Diagnosis 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 documented in this encounter [facility] note* Diagnosis Subclinical hypothyroidism- Primary Other specified acquired hypothyroidism Fatigue, unspecified type Type II endoleak of aortic graft Anemia of chronic disease Anemia of other chronic disease Stage 3b chronic kidney disease (HCC) Essential hypertension Unspecified essential hypertension Chronic diastolic CHF (congestive heart failure) (HCC) Chronic diastolic heart failure documented in this encounter [facility] note* Diagnosis Encounter for preprocedural laboratory examination- Primary Type II endoleak of aortic graft documented in this encounter [facility] note* Diagnosis 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 documented in this encounter [facility] note* Diagnosis Essential hypertension Unspecified essential hypertension documented in this encounter [facility] note* Diagnosis Fatigue, unspecified type- Primary Essential hypertension Unspecified essential hypertension Chronic diastolic CHF (congestive heart failure) (HCC) Chronic diastolic heart failure Anemia, unspecified type Subclinical hypothyroidism Other specified acquired hypothyroidism documented in this encounter [facility] note* Diagnosis NSTEMI (non-ST elevated myocardial infarction) ([facility])- Primary Acute myocardial infarction, subendocardial infarction, episode of care unspecified Chronic diastolic CHF (congestive heart failure) ([facility]) Chronic diastolic heart failure Stage 3b chronic kidney disease (HCC) Essential hypertension Unspecified essential hypertension Anemia of chronic disease Anemia of other chronic disease Type II endoleak of aortic graft Thrombocytopenia Thrombocytopenia, unspecified Acquired hypothyroidism Unspecified hypothyroidism Sacral decubitus ulcer, stage II ([facility]) Pressure ulcer, lower back [facility] Additional Instructions 1. Take antibiotics until gone. 2 if you develop a fever, your pain becomes worse and spite of the antibiotics or unable to eat or drink anything [facility]: Progress note Author Alexandru Laughlin [facility] Note Date/Time May 22, 2025 4:25pm [facility] Medical Records Department [address] [place] [address] Progress Note - Cardiology 05/22/25 1620 MR#: [id number] Acct: [id number] Name: LEANA CAMEJO KRYSTLE Rep #:[id number] : 1940 85 From: Alexandru Laughlin MD PCP: Dr. Dallas Reed MD Status:A DM IN Location: ICU CVICU20 1-1 Subjective Subjective Patient completed stress test today which was pharmacologic nuclear. 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 Patient continues to be symptom-free he is ambulating in the halls. Objective Data Vital Signs: Vital Signs Temp Pulse Resp BP Pulse Ox O2 Del Method 98.1 F 85 15 101/51 L 97 Room Air 05/22/25 10:00 05/22/25 15:51 05/22/25 15:00 05/22/25 15:51 05/22/25 15:00 05/22/25 15:00 Oxygen Delivery Method Room Air Weight: 136 lb 0.403 oz Body Mass Index (BMI) 20.7 Intake & Output: Intake and Output for Last 24 Hours 05/20/25 05/21/25 05/22/25 23:59 23:59 23:59 Intake Total 628.48 / 628.48 149.48 / 149.48 Output Total 1725 / 1725 700 / 700 Balance -1096.52 / -1096.52 -550.52 / -550.52 Lab / Micro Data 05/22/25 05:30 05/22/25 05:30 Labs: Laboratory Results - last 24 hr 05/21/25 17:00: APTT 67.5 H 05/21/25 23:15: APTT 65.0 H 05/22/25 05:30: WBC 3.9 L, RBC 3.08 L, Hgb 9.2 L, Hct 27.8 L, MCV 90.3, MCH 29.9, MCHC 33.1, RDW Std Deviation 49.6 H, RDW Coeff of Erma 15.0 H, Plt Count 83L, MPV 11.1, Immature Gran % (Auto) 0.300, Neut % (Auto) 58.9, Lymph % (Auto) 25.9, [place] % (Auto) 9.6, Eos % (Auto) 4.8, Baso % (Auto) 0.5, Absolute Neuts (auto) 2.3, Absolute Lymphs (auto) 1.02, Nucleated RBC % 0, APTT 67.5 H, Sodium 138, Potassium 3.9, Chloride 104, Carbon Dioxide 24.0, Anion Gap 10, BUN 43 H, Creatinine 1.79 H, Estim Creat Clear Calc 27.06 L, Est GFR (MDRD) Non-Af 37 L, BUN/Creatinine Ratio 24.2 H, Glucose 92, Calcium 8.8, Total Bilirubin 0.50, AST 84 H, ALT 19, Alkaline Phosphatase 37 L, [place] [address] H, Total Protein 6.3, Albumin 3.5, Globulin 2.9, Albumin/Globulin Ratio 1.2 Rhythm Strip Rhythm Strip: Sinus Rhythm Rate: 70 Ectopy: None Cardiology Labs/Tests 05/21/25 17:00: APTT 67.5 H 05/21/25 23:15: APTT 65.0 H 05/22/25 05:30: WBC 3.9 L, RBC 3.08 L, Hgb 9.2 L, Hct 27.8 L, MCV 90.3, MCH 29.9, MCHC 33.1, Plt Count 83 L, MPV 11.1, Immature Gran % (Auto) 0.300, Neut % (Auto) 58.9, Lymph % (Auto) 25.9, [place] % (Auto) 9.6, Eos % (Auto) 4.8, Baso % (Auto) 0.5, Absolute Neuts (auto) 2.3, Nucleated RBC % 0, APTT 67.5 H, Sodium 138, Potassium 3.9, Chloride 104, Carbon Dioxide 24.0, Anion Gap 10, BUN 43 H, Creatinine 1.79 H, Est GFR (MDRD) Non-Af 37 L, BUN/Creatinine Ratio 24.2 H, Glucose 92, Calcium 8.8, Total Bilirubin 0.50 Rhythm: EKG: ECHO: Stress Test: Cardiac Cath: PCI: CT Surgery: Holter monitor: EPS: PPM: CXR: Chest CT Scan: Radiography Diagnostic Testing: Radiology Impression Chest X-Ray 05/22/25 05:55 IMPRESSION: Slightly regressed pulmonary venous congestion changes since the prior study. Reading [facility] Assessment & Plan Assessment/Plan (1) Non-ST elevation NH (NSTEMI): PLAN: Patient is bumped his enzymes up to 650 are probably consistent with an ischemia related to demand. 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 The anterior wall appears to be well-perfused. The patient has no recurring chest symptoms he has been active in his room without any symptoms. He has had no recurrence of his atrial flutter. I recommend the patient be continued on his carvedilol 6.25 mg twice daily his furosemide 20 mg daily and the hydralazine 100 mg 3 times daily losartan 100 mg daily and his Nexletol as well as nifedipine. The patient should be reevaluated in the [facility] office in 2 weeks with one of the WEN's and check a basic metabolic panel to determine the patient's renal function and then see Dr. Laughlin in 6 weeks. Should the patient have symptoms consistent with angina would recommend pursuingleft heart catheterization. PLAN: Plan 1. Continue current medical therapy. 2. Basic metabolic panel and WEN visit with the [facility] in 2 weeks. 3. Patient instructed to call the [facility] should he have any type of chest tightness or symptoms consistent with angina. 4. Patient to follow-up with Dr. Laughlin in 6 weeks in the office. 05/22/25 1628 <Electronically signed by Alexandru Laughlin MD> Cosigner Signature (if applicable): CC: ~ Signed [facility] Work Phone: Reason for referral (narrative)* Outpatient Procedure (Routine) - Authorized Specialty Diagnoses / Procedures Referred By Trace flores Referred To Contact [facility] Diagnoses Diarrhea, unspecified type Procedures COLONOSCOPY DIAGNOSTIC COLONOSCOPY FLX DX W/COLLJ SPEC WHEN PFRMD Lisa Rodriguez MD [address] [place] [address] [facility] [address] [place] [address] Referral ID Status Reason Start Date Expiration Date Visits Requested Visits Authorized [id number] Authorized Auto-Generat ed Referral 01/07/2023 01/08/2024 1 1 [facility] for referral (narrative)* Diagnostic Procedure Only (Urgent) - Closed Specialty Diagnoses / Procedures Referred By Trace flores Referred To Contact [facility] Diagnoses Acute pain of both shoulders Procedures XR SHOULDER GENERAL 3V OR MORE AP/TRUE AP/OTHER LEFT RADEX SHOULDER COMPLETE MINIMUM 2 VIEWS Ayla Carrasquillo PA-C [address] [place] [address] [place] [address] Referral ID Status Reason Start Date Expiration Date V isits Requested Visits Authorized [id number] Closed Auto-Generate d Referral 02/09/2024 03/10/2025 1 1 * Diagnostic Procedure Only (Urgent) - Closed Specialty Diagnoses / Procedures Referred By Contac t Referred To Contact XR IMAGING Diagnoses Acute pain of both shoulders Procedures XR SHOULDER GENERAL 3V OR MORE AP/TRUE AP/OTHER RIGHT RADEX SHOULDER COMPLETE MINIMUM 2 VIEWS Ayla Carrasquillo PA-C [address] [place] [address] [place] [address] Referral ID Status Reason Start Date Expiration Date V isits Requested Visits Authorized [id number] Closed Auto-Generate d Referral 02/09/2024 03/10/2025 1 1 [facility] for referral (narrative)* Outpatient Procedure (Routine) - Closed Specialty Diagnoses / Procedures Referred By Contac t Referred To Contact [facility] Diagnoses Diarrhea, unspecified type Procedures COLONOSCOPY DIAGNOSTIC COLONOSCOPY FLX DX W/COLLJ SPEC WHEN PFRMD Lisa Rodriguez MD [address] [place] [address] [facility] [address] [place] [address] Referral ID Status Reason Start Date Expiration Date V isits Requested Visits Authorized [id number] Closed Auto-Generate d Referral 01/07/2023 01/08/2024 1 1 [facility] for referral (narrative)No reason for referral information availableWCleveland Clinic Foundation Work Phone: Reason for visit Narrative* Diagnostic Procedure Only (Urgent) - Closed Specialty Diagnoses / Procedures Referred By Contac t Referred To Contact XR IMAGING Diagnoses Acute pain of both shoulders Procedures XR SHOULDER GENERAL 3V OR MORE AP/TRUE AP/OTHER LEFT RADEX SHOULDER COMPLETE MINIMUM 2 VIEWS Ayla Carrasquillo, JAGDEEP [address] [place] [address] [place] [address] Referral ID Status Reason Start Date Expiration Date V isits Requested Visits Authorized [id number] Closed Auto-Generate d Referral 02/09/2024 03/10/2025 1 1 [facility] for visit Narrative* Outpatient Procedure (Routine) - Closed Specialty Diagnoses / Procedures Referred By Contac t Referred To Contact [facility] Diagnoses Diarrhea, unspecified type Procedures COLONOSCOPY DIAGNOSTIC COLONOSCOPY FLX DX W/COLLJ SPEC WHEN PFRMD Lisa Rodriguez MD [address] [place] [address] [facility] [place] [address] [place] [address] Referral ID Status Reason Start Date Expiration Date V isits Requested Visits Authorized [id number] Closed Auto-Generate d Referral 01/07/2023 01/08/2024 1 1 [facility] for visit Narrative* MRI/CT (Routine) - Closed Specialty Diagnoses / Procedures Referred By Contac t Referred To Contact CT IMAGING Diagnoses LLQ abdominal pain Left lower quadrant abdominal pain Procedures CT ABD/PEL W IVCON CT ABD & PELVIS W/CONTRAST Darya Borden, [employer] DEVELOPER.[employer] [address] [place] [address] Phone: tel: fax: [place] [address] Referral ID Status Reason Start Date Expiration Date V isits Requested Visits Authorized [id number] Closed Auto-Generate d Referral 11/27/2024 12/27/2025 1 1 [facility] for visit Narrative* MRI/CT (Routine) - Closed Specialty Diagnoses / Procedures Referred By Contac t Referred To Contact CT IMAGING Diagnoses LLQ abdominal pain Left lower quadrant abdominal pain Procedures CT ABD/PEL W IVCON CT ABD & PELVIS W/CONTRAST Darya Borden, X RAY DEVELOPER.[employer] [address] [place] [address] Phone: tel: fax: [place] [address] Referral ID Status Reason Start Date Expiration Date V isits Requested Visits Authorized [id number] Closed Auto-Generate d Referral 11/27/2024 12/27/2025 1 1 [facility] for visit Narrative* Imaging (Routine) - Closed Specialty Diagnoses / Procedures Referred By Trace t Referred To Contact Radiology Diagnoses Type II endoleak of aortic graft Procedures IR Embolization Ana Bobo MD [address] [place] [address] Phone: tel: fax: Referral ID Status Reason Start Date Expiration Date Visits Re quested Visits Authorized [id number] Closed 03/01/2025 03/01/2026 1 1 [facility] Summary Purpose Family History No Family [...] Documents on File Type Date Recorded Patient Configurator Expl anation Advance Directives and Living Will Power of Water Maintenance Supervisor Documents on File Type Date Recorded Patient Configurator Expl anation Advance Directive(s) Advance Directive(s) 05/21/2020 7:47 AM Advance Directive(s) 05/09/2020 2:53 PM Advance Directive Response Recorded Date/ Time Advance Directives Yes October 11, 2016 3:05pm Living Will Yes January 20, 2021 8: 52pm Power of Water Maintenance Supervisor Yes January 20, 2021 8:52pm Advance Directive Response Recorded Date/ Time Name of Medical Power of Water Maintenance Supervisor Libra April 07, 2023 10:14am Advance Directives Yes October 11, 2016 3:05pm Living Will Yes April 07, 2023 10:14am Power of Water Maintenance Supervisor Yes April 07 10:14am Advance Directive Response Recorded Date/ Time Advance Directives Yes October 11, 2016 2:05pm Living Will Yes April 07, 2023 9:14am Power of Water Maintenance Supervisor Yes April 07 9:14am Advance Directive Response Recorded Date/ Time Advance Directives Yes October 11, 2016 3:05pm Living Will Yes April 07, 2023 10:14am Power of Water Maintenance Supervisor Yes April 07 10:14am Date Activated Date Inactivated Comments 11/28/2024 9:51 PM Date Activated Date Inactivated Comments 11/28/2024 9:51 PM Question Answer Comments Full Code Order Discussed With: Patient Advance Directive Response Recorded Date/ Time Living Will Yes August 11, 024 1:26pm Power of Water Maintenance Supervisor Yes August 11, 2024 1:26pm Name of Medical Power of Water Maintenance Supervisor August 11, 2024 1:26pm Living Will Yes November 28, 2024 5:58pm Power of Water Maintenance Supervisor Yes November 28 5:58pm Name of Medical Power of Water Maintenance Supervisor Libra Camejo November 28, 2024 5:58pm Advance Directives Yes October 11, 2016 3:05pm Advance Directive Response Recorded Date/ Time Do you have a Healthcare Power of Water Maintenance Supervisor? No January 12, 2025 10:29am Living Will Yes November 28, 2024 5:58pm Do you have a Healthcare Power of Water Maintenance Supervisor? Yes November 28, 2024 5:58pm Name of Medical Power of Water Maintenance Supervisor Libra Camejo November 28, 2024 5:58pm Advance Directives Yes October 11, 2016 3:05pm Advance Directive Response Recorded Date/ Time Do you have a Healthcare Power of Water Maintenance Supervisor? No January 12, 2025 10:29am Advance Directives on File Yes January 192024 9:53am Living Will Yes February 14, 2025 9 :53am Do you have a Healthcare Power of Water Maintenance Supervisor? Yes February 14, 2025 9:53am Name of Medical Power of Water Maintenance Supervisor Libra (Spouse) February 14, 2025 9:53am Advance Directives Yes February 14 9:53am Living Will Yes November 28, 2024 5:58pm Do you have a Healthcare Power of Water Maintenance Supervisor? Yes November 28, 2024 5:58pm Name of Medical Power of Water Maintenance Supervisor Libra Camejo November 28, 2024 5:58pm Advance Directive Response Recorded Date/ Time Do you have a Healthcare Power of Water Maintenance Supervisor? No January 12, 2025 10:29am Advance Directives on File Yes January 192024 9:53am Living Will Yes February 14, 2025 9 :53am Do you have a Healthcare Power of Water Maintenance Supervisor? Yes February 14, 2025 9:53am Name of Medical Power of Water Maintenance Supervisor Libra (Spouse) February 14, 2025 9:53am Advance Directives Yes February 14 9:53am Advance Directive Response Recorded Date/ Time Advance Directives on File Yes January 192024 9:53am Living Will Yes February 14, 2025 9 :53am Do you have a Healthcare Power of Water Maintenance Supervisor? Yes February 14, 2025 9:53am Name of Medical Power of Water Maintenance Supervisor Libra (Spouse) February 14, 2025 9:53am Advance Directives Yes February 14 9:53am Advance Directive Response Recorded Date/ Time Advance Directives on File Yes January 192024 9:53am Living Will Yes February 14, 2025 9 :53am Do you have a Healthcare Power of Water Maintenance Supervisor? Yes February 14, 2025 9:53am Name of Medical Power of Water Maintenance Supervisor Libra (Spouse) February 14, 2025 9:53am Advance Directives Yes February 14 9:53am Do you have a Healthcare Power of Water Maintenance Supervisor? Yes May 21, 2025 5:02am Advance Directive Response Recorded Date/ Time Do you have a Healthcare Power of Water Maintenance Supervisor? Yes May 21, 2025 5:02am Advance Directives Yes February 14 9:53am Discharge [...] your doctor if you can take an [id number] medicine. If you think your pain medicine [...] as of: July 26, 2018 Content Version: [id number] [employer]. Care instructions adapted under license by [employer]. If youhave questions about a medical condition or this instruction, always ask your healthcare professional. [employer] disclaims any warranty or liability for your use of this information. If you have any questions or problems following your test, please call: [phone] (7AM - 4PM) or after 4PM call [phone] and ask for the angiography radiologist regional business development manager documented in this encounter History of Present [...] - 07/19/2019 10:[address] Brent Quevedo pagepraveen. New orders received for pain medication to be given. Then wait 1 hour before discharge * Mandi Sanchez RN - 07/19/2019 9:21 AM EDT Patient arrived and ID verified. Vital signs stable. Call light in reach. Denies nausea and vomiting. Offered crackers and something to drink. * Annette Domingo RN - 07/19/2019 9:12 AM EDT Patient arrived to CT department from [facility] for a Rt. Hip/ psoas aspiration. Dr. Quevedo in to discuss procedure with patient and informed consent obtained. Patient assisted to CT table . compliance monitor on. 10 ccs red fluid removed [...] Date Discuss aneurysm, [facility] sent him here 2024 3:30pm abd pain January 12, 2025 10: 29am AAA S/P EVAR, TYPE II ENDOLEAK, SURVEILL ANCE January 18, 2025 2:55pm Other postprocedural complications and d isorders o February 14, 2025 9:24am Other postprocedural complications and d isorders o February 14, 2025 11:33am Post Aortogram 2-4 WK FU February 27, 2025 2:40pm FU from [facility] April 18, 2025 4:16 pm Reason for [...] FU February 27, 2025 2:40pm FU from [facility] April 18, 2025 4:16 pm AAA, S/P [...] FU February 27, 2025 2:40pm FU from [facility] April 18, 2025 4:16 pm AAA, S/P [...] FU February 27, 2025 2:40pm FU from [facility] April 18, 2025 4:16 pm AAA, S/P [...] FU February 27, 2025 2:40pm FU from [facility] April 18, 2025 4:16 pm AAA, S/P [...] flutter May 21, 2025 3:46am Non-ST elevation [place] (NSTEMI) May 212024 3:46am Abdominal aortic aneurysm without ruptur e May 21, 2025 3:46am Chronic renal failure, stage 3 (moderate ) May 21, 2025 3:46am Type II endoleak of aortic graft Septemb 2024 3:46am Chief Complaint Admit Date Other postprocedural complications and d isorders o February 14, 2025 9:24am Other postprocedural complications and d isorders o February 14, 2025 11:33am Post Aortogram 2-4 WK FU February 27, 2025 2:40pm FU from [facility] April 18, 2025 4:16 pm AAA, S/P EVAR, COIL OF ENDOLEAK April 202024 1:59pm FU VISIT May 10, 2025 8: 04am E ORDERS May 10, 2025 8: 49am SUSPECTED TRANSIENT AFLUTTER WITH RVR EL EVATED May 21, 2025 4:22am SUSPECTED TRANSIENT AFLUTTER WITH RVR EL EVATED May 21, 2025 10:49am SUSPECTED TRANSIENT AFLUTTER WITH RVR EL EVATED May 22, 2025 9:59am SUSPECTED TRANSIENT AFLUTTER WITH RVR EL EVATED May 22, 2025 10:23am Reason for Visit Admit Date Type II [...] chronic heart fail ure May 21, 2025 4:22am DALTON (acute kidney injury) May 21, 2025 4:22am Elevated TSH May 21, 2025 4:22am New onset atrial flutter May 21, 2025 4:22am Non-ST elevation NH (NSTEMI) May 212024 4:22am 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 May 21, 2025 4:22am Abdominal aortic aneurysm without ruptur e May 21, 2025 4:22am Anemia May 21, 2025 4:22am Chronic renal failure, stage 3 (moderate ) May 21, 2025 4:22am 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 May 21, 2025 4:22am Essential hypertension May 21 4:22am Type II endoleak of aortic graft Septemb 2024 4:22am Shortness of breath May 21, 2025 4:22am Chief Complaint Admit Date Other postprocedural complications and d isorders o February 14, 2025 9:24am Other postprocedural complications and d isorders o February 14, 2025 11:33am Post Aortogram 2-4 WK FU February 27, 2025 2:40pm FU from [facility] April 18, 2025 4:16 pm AAA, S/P EVAR, COIL OF ENDOLEAK April 202024 1:59pm FU VISIT May 10, 2025 8: 04am E ORDERS May 10, 2025 8: 49am SUSPECTED TRANSIENT AFLUTTER WITH RVR EL EVATED May 21, 2025 4:22am SUSPECTED TRANSIENT AFLUTTER WITH RVR EL EVATED May 21, 2025 10:49am SUSPECTED TRANSIENT AFLUTTER WITH RVR EL EVATED May 22, 2025 9:59am SUSPECTED TRANSIENT AFLUTTER WITH RVR EL EVATED May 22, 2025 10:23am 2 WK FU AFTER STRESS TEST May 8:34am Reason for Visit Admit Date Type II endoleak of aortic graft January 9:24am Type II endoleak of aortic graft February 272024 2:40pm Abdominal aortic aneurysm without ruptur e April 18, 2025 4:16pm 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 May 10, 2025 8:04am Hyperlipidemia May 10, 2025 8: 04am Shortness of breath May 10, 2025 8: 04am Abdominal aortic aneurysm without ruptur e May 10, 2025 8:04am Essential hypertension May 10, 2025 8:04am 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 May 10, 2025 8:04am Shortness of breath May 21, 2025 4:22am Abdominal aortic aneurysm without ruptur e May 21, 2025 4:22am Acute exacerbation of chronic heart fail ure May 21, 2025 4:22am DALTON (acute kidney injury) May 21, 2025 4:22am Anemia May 21, 2025 4:22am Chronic renal failure, stage 3 (moderate ) May 21, 2025 4:22am 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 May 21, 2025 4:22am Elevated TSH May 21, 2025 4:22am Essential hypertension May 21 4:22am New onset atrial flutter May 21, 2025 4:22am Non-ST elevation NH (NSTEMI) May 212024 4:22am 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 May 21, 2025 4:22am Type II endoleak of aortic graft Septemb 2024 4:22am Abnormal stress test June 05 8:34am Aneurysm, common iliac artery June 05, 2025 8:34am Carotid artery stenosis June 05, 2025 8:34am 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 June 05, 2025 8:34am Hyperlipidemia June 05, 2025 8:34am Shortness of breath June 05, 2025 8:34am Abdominal aortic aneurysm without ruptur e June 05, 2025 8:34am Essential hypertension June 05, 2 025 8:34am 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 June 05, 2025 8:34am Chief Complaint Admit Date Post Aortogram 2-4 WK FU February 27, 2025 2:40pm FU from [facility] April 18, 2025 4:16 pm AAA, S/P EVAR, COIL OF ENDOLEAK April 202024 1:59pm FU VISIT May 10, 2025 8: 04am E ORDERS May 10, 2025 8: 49am SUSPECTED TRANSIENT AFLUTTER WITH RVR EL EVATED May 21, 2025 4:22am SUSPECTED TRANSIENT AFLUTTER WITH RVR EL EVATED May 21, 2025 10:49am SUSPECTED TRANSIENT AFLUTTER WITH RVR EL EVATED May 22, 2025 9:59am SUSPECTED TRANSIENT AFLUTTER WITH RVR EL EVATED May 22, 2025 10:23am 2 WK FU AFTER STRESS TEST May 8:34am INT LABS June 05, 2025 9:59am Reason for Visit Admit Date Type II endoleak of aortic graft February 272024 2:40pm Abdominal aortic aneurysm without ruptur e April 18, 2025 4:16pm 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 May 10, 2025 8:04am Hyperlipidemia May 10, 2025 8: 04am Shortness of breath May 10, 2025 8: 04am Abdominal aortic aneurysm without ruptur e May 10, 2025 8:04am Essential hypertension May 10, 2025 8:04am 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 May 10, 2025 8:04am Shortness of breath May 21, 2025 4:22am Abdominal aortic aneurysm without ruptur e May 21, 2025 4:22am Acute exacerbation of chronic heart fail ure May 21, 2025 4:22am DALTON (acute kidney injury) May 21, 2025 4:22am Anemia May 21, 2025 4:22am Chronic renal failure, stage 3 (moderate ) May 21, 2025 4:22am 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 May 21, 2025 4:22am Elevated TSH May 21, 2025 4:22am Essential hypertension May 21 4:22am New onset atrial flutter May 21, 2025 4:22am Non-ST elevation NH (NSTEMI) May 212024 4:22am 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 May 21, 2025 4:22am Type II endoleak of aortic graft Septemb 2024 4:22am Abnormal stress test June 05 8:34am Fatigue June 05, 2025 8:34am Paroxysmal atrial flutter May 8:34am 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 June 05, 2025 8:34am Hyperlipidemia June 05, 2025 8:34am Abdominal aortic aneurysm without ruptur e June 05, 2025 8:34am Essential hypertension June 05 025 8:34am 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 June 05, 2025 8:34am Health Concerns Infection Onset Date Last Indicated [...] Chronic Disease Home Monitoring Proble m 02/03/2023 Reason for Referral Specialty Diagnoses / Procedures Referred By Contac t Referred To Contact CT IMAGING Diagnoses Encounter for other preprocedural examination Procedures CTA ABD/PEL WO/W IVCON CT ANGIO ABD&PLVIS CNTRST MTRL W/WO CNTRST IMShaun Bocanegra MD [address] [place] [address] Ct Imaging [place] [address] Referral ID Status Reason Start Date Expiration Date Visits Requested Visits Authorized [id number] Authorized Auto-Generat ed Referral 01/05/2024 02/03/2025 1 1 Specialty Diagnoses / Procedures Referred By Contac t Referred To Contact CT IMAGING Diagnoses Encounter for other preprocedural examination Procedures CTA CHEST (NONGATED) WO/W IVCON CT ANGIOGRAPHY CHEST W/CONTRAST/NONCONTRAST Shaun Kowalski MD [address] [facility] [place] [address] Ct Imaging [place] [address] Referral ID Status Reason Start Date Expiration Date Visits Requested Visits Authorized [id number] Authorized Auto-Generat ed Referral 01/05/2024 02/03/2025 1 1 Specialty Diagnoses / Procedures Referred By Contac t Referred To Contact Orthopedics Diagnoses Acute pain of both shoulders Procedures CONSULT TO ORTHOPAEDICS OFFICE/OUTPATIENT [facility] 60 MINUTES Ayla Carrasquillo PA-C [address] [place] [address] Referral ID Status Reason Start Date Expiration Date Visits Requested Visits Authorized [id number] Authorized PCP Requested Referral 02/09/2024 02/08/2025 1 1 Specialty Diagnoses / Procedures Referred By Contac t Referred To Contact XR IMAGING Diagnoses Acute pain of both shoulders Procedures XR SHOULDER GENERAL 3V OR MORE AP/TRUE AP/OTHER LEFT RADEX SHOULDER COMPLETE MINIMUM 2 VIEWS Ayla Carrasquillo PA-C [address] [place] [address] [place] [address] Referral ID Status Reason Start Date Expiration Date V isits Requested Visits Authorized [id number] Closed Auto-Generate d Referral 02/09/2024 03/10/2025 1 1 Specialty Diagnoses / Procedures Referred By Contac t Referred To Contact XR IMAGING Diagnoses Acute pain of both shoulders Procedures XR SHOULDER GENERAL 3V OR MORE AP/TRUE AP/OTHER RIGHT RADEX SHOULDER COMPLETE MINIMUM 2 VIEWS Ayla Carrasquillo PA-C [address] [place] [address] [place] [address] Referral ID Status Reason Start Date Expiration Date V isits Requested Visits Authorized [id number] Closed Auto-Generate d Referral 02/09/2024 03/10/2025 1 1 Specialty Diagnoses / Procedures Referred By Contac t Referred To Contact Vascular Surgery Diagnoses 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 Procedures CONSULT TO VASCULAR SURGERY Dallas Reed MD [address] [place] [address] Referral ID Status Reason Start Date Expiration Date Visits Requested Visits Authorized [id number] Ref Not Required PCP Requested Referral 07/17/2025 1 1 Specialty Diagnoses / Procedures Referred By Contac t Referred To Contact General Surgery Diagnoses Spigelian hernia Pancreatic cyst Procedures CONSULT TO GENERAL SURGERY Dallas Reed MD [address] [place] [address] Referral ID Status Reason Start Date Expiration Date Visits Requested Visits Authorized [id number] Ref Not Required PCP Requested Referral 4 07/17/2025 1 1 Additional Source Comments (unrecognized sect ion and content) No Status Records FoundNo Status Records FoundNo Status Records FoundNo Status Records FoundNo Status Records FoundNo Status Records FoundNo Status Records Found INFORMATION SOURCE (unrecogn ized section and content) DATE CREATED AUTHOR 03/10/2018 [facility] DATE CREATED AUTHOR AUTHOR'S ORGANIZ ATION 03/10/2018 [facility] DATE CREATED AUTHOR AUTHOR'S ORGANIZ ATION 06/20/2019 [facility] ([place]) DATE CREATED AUTHOR AUTHOR'S ORGANIZ ATION 07/24/2019 [facility] DATE CREATED AUTHOR AUTHOR'S ORGANIZ ATION 03/22/2025 [facility] DATE CREATED AUTHOR AUTHOR'S ORGANIZ ATION 06/11/2025 [facility] DATE CREATED AUTHOR AUTHOR'S ORGANIZ ATION 06/23/2025 [facility] Source Comments (unrecognize d section and content) In the event this informatio n is protected by the Federal Confidentiality of Alcohol and Drug Abuse Patient Records regulations: The Federal rules restrict any use of the information to criminally investigate or prosecute any alcohol or drug abuse patient.[facility] the event this information is protected by the Federal Confidentiality of Alcohol and Drug Abuse Patient Records regulations: The Federal rules restrict any use of the information to criminally investigate or prosecute any alcohol or drug abuse patient.[facility] HospitalIn the event this information is protected by the Federal Confidentiality of Alcohol and Drug Abuse Patient Records regulations: The Federal rules restrict any use of the information to criminally investigate or prosecute any alcohol or drug abuse patient.[facility] HospitalIn the event this information is protected by the Federal Confidentiality of Alcohol and Drug Abuse Patient Records regulations: The Federal rules restrict any use of the information to criminally investigate or prosecute any alcohol or drug abuse patient.[facility] Hospital[facility] the event this information is protected by the Federal Confidentiality of Alcohol and Drug Abuse Patient Records regulations: The Federal rules restrict any use of the information to criminally investigate or prosecute any alcohol or drug abuse patient.[facility] HospitalIn the event this information is protected by the Federal Confidentiality of Alcohol and Drug Abuse Patient Records regulations: The Federal rules restrict any use of the information to criminally investigate or prosecute any alcohol or drug abuse patient.[facility] HospitalIn the event this information is protected by the Federal Confidentiality of Alcohol and Drug Abuse Patient Records regulations: The Federal rules restrict any use of the information to criminally investigate or prosecute any alcohol or drug abuse patient.[facility] Hospital[facility] the event this information is protected by the Federal Confidentiality of Alcohol and Drug Abuse Patient Records regulations: The Federal rules restrict any use of the information to criminally investigate or prosecute any alcohol or drug abuse patient.[facility] HospitalIn the event this information is protected by the Federal Confidentiality of Alcohol and Drug Abuse Patient Records regulations: The Federal rules restrict any use of the information to criminally investigate or prosecute any alcohol or drug abuse patient.[facility] HospitalIn the event this information is protected by the Federal Confidentiality of Alcohol and Drug Abuse Patient Records regulations: The Federal rules restrict any use of the information to criminally investigate or prosecute any alcohol or drug abuse patient.[facility] HospitalIn the event this information is protected by the Federal Confidentiality of Alcohol and Drug Abuse Patient Records regulations: The Federal rules restrict any use of the information to criminally investigate or prosecute any alcohol or drug abuse patient.[facility] HospitalIn the event this information is protected by the Federal Confidentiality of Alcohol and Drug Abuse Patient Records regulations: The Federal rules restrict any use of the information to criminally investigate or prosecute any alcohol or drug abuse patient.[facility] HospitalIn the event this information is protected by the Federal Confidentiality of Alcohol and Drug Abuse Patient Records regulations: The Federal rules restrict any use of the information to criminally investigate or prosecute any alcohol or drug abuse patient.[facility] HospitalIn the event this information is protected by the Federal Confidentiality of Alcohol and Drug Abuse Patient Records regulations: The Federal rules restrict any use of the information to criminally investigate or prosecute any alcohol or drug abuse patient.[facility] HospitalIn the event this information is protected by the Federal Confidentiality of Alcohol and Drug Abuse Patient Records regulations: The Federal rules restrict any use of the information to criminally investigate or prosecute any alcohol or drug abuse patient.[facility] HospitalIn the event this information is protected by the Federal Confidentiality of Alcohol and Drug Abuse Patient Records regulations: The Federal rules restrict any use of the information to criminally investigate or prosecute any alcohol or drug abuse patient.[facility] HospitalIn the event this information is protected by the Federal Confidentiality of Alcohol and Drug Abuse Patient Records regulations: The Federal rules restrict any use of the information to criminally investigate or prosecute any alcohol or drug abuse patient.[facility] HospitalIn the event this information is protected by the Federal Confidentiality of Alcohol and Drug Abuse Patient Records regulations: The Federal rules restrict any use of the information to criminally investigate or prosecute any alcohol or drug abuse patient.[facility] HospitalIn the event this information is protected by the Federal Confidentiality of Alcohol and Drug Abuse Patient Records regulations: The Federal rules restrict any use of the information to criminally investigate or prosecute any alcohol or drug abuse patient.[facility] HospitalIn the event this information is protected by the Federal Confidentiality of Alcohol and Drug Abuse Patient Records regulations: The Federal rules restrict any use of the information to criminally investigate or prosecute any alcohol or drug abuse patient.[facility] HospitalIn the event this information is protected by the Federal Confidentiality of Alcohol and Drug Abuse Patient Records regulations: The Federal rules restrict any use of the information to criminally investigate or prosecute any alcohol or drug abuse patient.[facility] HospitalIn the event this information is protected by the Federal Confidentiality of Alcohol and Drug Abuse Patient Records regulations: The Federal rules restrict any use of the information to criminally investigate or prosecute any alcohol or drug abuse patient.[facility] HospitalIn the event this information is protected by the Federal Confidentiality of Alcohol and Drug Abuse Patient Records regulations: The Federal rules restrict any use of the information to criminally investigate or prosecute any alcohol or drug abuse patient.[facility] HospitalIn the event this information is protected by the Federal Confidentiality of Alcohol and Drug Abuse Patient Records regulations: The Federal rules restrict any use of the information to criminally investigate or prosecute any alcohol or drug abuse patient.[facility] HospitalIn the event this information is protected by the Federal Confidentiality of Alcohol and Drug Abuse Patient Records regulations: The Federal rules restrict any use of the information to criminally investigate or prosecute any alcohol or drug abuse patient.[facility] HospitalIn the event this information is protected by the Federal Confidentiality of Alcohol and Drug Abuse Patient Records regulations: The Federal rules restrict any use of the information to criminally investigate or prosecute any alcohol or drug abuse patient.[facility] HospitalIn the event this information is protected by the Federal Confidentiality of Alcohol and Drug Abuse Patient Records regulations: The Federal rules restrict any use of the information to criminally investigate or prosecute any alcohol or drug abuse patient.[facility] HospitalIn the event this information is protected by the Federal Confidentiality of Alcohol and Drug Abuse Patient Records regulations: The Federal rules restrict any use of the information to criminally investigate or prosecute any alcohol or drug abuse patient.[facility] HospitalIn the event this information is protected by the Federal Confidentiality of Alcohol and Drug Abuse Patient Records regulations: The Federal rules restrict any use of the information to criminally investigate or prosecute any alcohol or drug abuse patient.[facility] HospitalIn the event this information is protected by the Federal Confidentiality of Alcohol and Drug Abuse Patient Records regulations: The Federal rules restrict any use of the information to criminally investigate or prosecute any alcohol or drug abuse patient.[facility] HospitalIn the event this information is protected by the Federal Confidentiality of Alcohol and Drug Abuse Patient Records regulations: The Federal rules restrict any use of the information to criminally investigate or prosecute any alcohol or drug abuse patient.[facility] HospitalIn the event this information is protected by the Federal Confidentiality of Alcohol and Drug Abuse Patient Records regulations: The Federal rules restrict any use of the information to criminally investigate or prosecute any alcohol or drug abuse patient.[facility] HospitalIn the event this information is protected by the Federal Confidentiality of Alcohol and Drug Abuse Patient Records regulations: The Federal rules restrict any use of the information to criminally investigate or prosecute any alcohol or drug abuse patient.[facility] HospitalIn the event this information is protected by the Federal Confidentiality of Alcohol and Drug Abuse Patient Records regulations: The Federal rules restrict any use of the information to criminally investigate or prosecute any alcohol or drug abuse patient.[facility] HospitalIn the event this information is protected by the Federal Confidentiality of Alcohol and Drug Abuse Patient Records regulations: The Federal rules restrict any use of the information to criminally investigate or prosecute any alcohol or drug abuse patient.[facility] HospitalIn the event this information is protected by the Federal Confidentiality of Alcohol and Drug Abuse Patient Records regulations: The Federal rules restrict any use of the information to criminally investigate or prosecute any alcohol or drug abuse patient.[facility] HospitalIn the event this information is protected by the Federal Confidentiality of Alcohol and Drug Abuse Patient Records regulations: The Federal rules restrict any use of the information to criminally investigate or prosecute any alcohol or drug abuse patient.[facility] HospitalIn the event this information is protected by the Federal Confidentiality of Alcohol and Drug Abuse Patient Records regulations: The Federal rules restrict any use of the information to criminally investigate or prosecute any alcohol or drug abuse patient.[facility] HospitalIn the event this information is protected by the Federal Confidentiality of Alcohol and Drug Abuse Patient Records regulations: The Federal rules restrict any use of the information to criminally investigate or prosecute any alcohol or drug abuse patient.[facility] HospitalIn the event this information is protected by the Federal Confidentiality of Alcohol and Drug Abuse Patient Records regulations: The Federal rules restrict any use of the information to criminally investigate or prosecute any alcohol or drug abuse patient.[facility] HospitalIn the event this information is protected by the Federal Confidentiality of Alcohol and Drug Abuse Patient Records regulations: The Federal rules restrict any use of the information to criminally investigate or prosecute any alcohol or drug abuse patient.[facility] HospitalIn the event this information is protected by the Federal Confidentiality of Alcohol and Drug Abuse Patient Records regulations: The Federal rules restrict any use of the information to criminally investigate or prosecute any alcohol or drug abuse patient.[facility] HospitalIn the event this information is protected by the Federal Confidentiality of Alcohol and Drug Abuse Patient Records regulations: The Federal rules restrict any use of the information to criminally investigate or prosecute any alcohol or drug abuse patient.[facility] HospitalIn the event this information is protected by the Federal Confidentiality of Alcohol and Drug Abuse Patient Records regulations: The Federal rules restrict any use of the information to criminally investigate or prosecute any alcohol or drug abuse patient.[facility] HospitalIn the event this information is protected by the Federal Confidentiality of Alcohol and Drug Abuse Patient Records regulations: The Federal rules restrict any use of the information to criminally investigate or prosecute any alcohol or drug abuse patient.[facility] HospitalIn the event this information is protected by the Federal Confidentiality of Alcohol and Drug Abuse Patient Records regulations: The Federal rules restrict any use of the information to criminally investigate or prosecute any alcohol or drug abuse patient.[facility] HospitalIn the event this information is protected by the Federal Confidentiality of Alcohol and Drug Abuse Patient Records regulations: The Federal rules restrict any use of the information to criminally investigate or prosecute any alcohol or drug abuse patient.[facility] HospitalIn the event this information is protected by the Federal Confidentiality of Alcohol and Drug Abuse Patient Records regulations: The Federal rules restrict any use of the information to criminally investigate or prosecute any alcohol or drug abuse patient.[facility] HospitalIn the event this information is protected by the Federal Confidentiality of Alcohol and Drug Abuse Patient Records regulations: The Federal rules restrict any use of the information to criminally investigate or prosecute any alcohol or drug abuse patient.[facility] HospitalIn the event this information is protected by the Federal Confidentiality of Alcohol and Drug Abuse Patient Records regulations: The Federal rules restrict any use of the information to criminally investigate or prosecute any alcohol or drug abuse patient.[facility] HospitalIn the event this information is protected by the Federal Confidentiality of Alcohol and Drug Abuse Patient Records regulations: The Federal rules restrict any use of the information to criminally investigate or prosecute any alcohol or drug abuse patient.[facility] HospitalIn the event this information is protected by the Federal Confidentiality of Alcohol and Drug Abuse Patient Records regulations: The Federal rules restrict any use of the information to criminally investigate or prosecute any alcohol or drug abuse patient.[facility] HospitalIn the event this information is protected by the Federal Confidentiality of Alcohol and Drug Abuse Patient Records regulations: The Federal rules restrict any use of the information to criminally investigate or prosecute any alcohol or drug abuse patient.[facility] HospitalIn the event this information is protected by the Federal Confidentiality of Alcohol and Drug Abuse Patient Records regulations: The Federal rules restrict any use of the information to criminally investigate or prosecute any alcohol or drug abuse patient.[facility] HospitalIn the event this information is protected by the Federal Confidentiality of Alcohol and Drug Abuse Patient Records regulations: The Federal rules restrict any use of the information to criminally investigate or prosecute any alcohol or drug abuse patient.[facility] HospitalIn the event this information is protected by the Federal Confidentiality of Alcohol and Drug Abuse Patient Records regulations: The Federal rules restrict any use of the information to criminally investigate or prosecute any alcohol or drug abuse patient.[facility] HospitalIn the event this information is protected by the Federal Confidentiality of Alcohol and Drug Abuse Patient Records regulations: The Federal rules restrict any use of the information to criminally investigate or prosecute any alcohol or drug abuse patient.[facility] HospitalIn the event this information is protected by the Federal Confidentiality of Alcohol and Drug Abuse Patient Records regulations: The Federal rules restrict any use of the information to criminally investigate or prosecute any alcohol or drug abuse patient.[facility] HospitalIn the event this information is protected by the Federal Confidentiality of Alcohol and Drug Abuse Patient Records regulations: The Federal rules restrict any use of the information to criminally investigate or prosecute any alcohol or drug abuse patient.[facility] HospitalIn the event this information is protected by the Federal Confidentiality of Alcohol and Drug Abuse Patient Records regulations: The Federal rules restrict any use of the information to criminally investigate or prosecute any alcohol or drug abuse patient.[facility] HospitalIn the event this information is protected by the Federal Confidentiality of Alcohol and Drug Abuse Patient Records regulations: The Federal rules restrict any use of the information to criminally investigate or prosecute any alcohol or drug abuse patient.[facility] HospitalIn the event this information is protected by the Federal Confidentiality of Alcohol and Drug Abuse Patient Records regulations: The Federal rules restrict any use of the information to criminally investigate or prosecute any alcohol or drug abuse patient.[facility] HospitalIn the event this information is protected by the Federal Confidentiality of Alcohol and Drug Abuse Patient Records regulations: The Federal rules restrict any use of the information to criminally investigate or prosecute any alcohol or drug abuse patient.[facility] HospitalIn the event this information is protected by the Federal Confidentiality of Alcohol and Drug Abuse Patient Records regulations: The Federal rules restrict any use of the information to criminally investigate or prosecute any alcohol or drug abuse patient.[facility] HospitalIn the event this information is protected by the Federal Confidentiality of Alcohol and Drug Abuse Patient Records regulations: The Federal rules restrict any use of the information to criminally investigate or prosecute any alcohol or drug abuse patient.[facility] HospitalIn the event this information is protected by the Federal Confidentiality of Alcohol and Drug Abuse Patient Records regulations: The Federal rules restrict any use of the information to criminally investigate or prosecute any alcohol or drug abuse patient.[facility] HospitalIn the event this information is protected by the Federal Confidentiality of Alcohol and Drug Abuse Patient Records regulations: The Federal rules restrict any use of the information to criminally investigate or prosecute any alcohol or drug abuse patient.[facility] HospitalIn the event this information is protected by the Federal Confidentiality of Alcohol and Drug Abuse Patient Records regulations: The Federal rules restrict any use of the information to criminally investigate or prosecute any alcohol or drug abuse patient.[facility] HospitalIn the event this information is protected by the Federal Confidentiality of Alcohol and Drug Abuse Patient Records regulations: The Federal rules restrict any use of the information to criminally investigate or prosecute any alcohol or drug abuse patient.[facility] HospitalIn the event this information is protected by the Federal Confidentiality of Alcohol and Drug Abuse Patient Records regulations: The Federal rules restrict any use of the information to criminally investigate or prosecute any alcohol or drug abuse patient.[facility] HospitalIn the event this information is protected by the Federal Confidentiality of Alcohol and Drug Abuse Patient Records regulations: The Federal rules restrict any use of the information to criminally investigate or prosecute any alcohol or drug abuse patient.[facility] HospitalIn the event this information is protected by the Federal Confidentiality of Alcohol and Drug Abuse Patient Records regulations: The Federal rules restrict any use of the information to criminally investigate or prosecute any alcohol or drug abuse patient.[facility] HospitalIn the event this information is protected by the Federal Confidentiality of Alcohol and Drug Abuse Patient Records regulations: The Federal rules restrict any use of the information to criminally investigate or prosecute any alcohol or drug abuse patient.[facility] HospitalIn the event this information is protected by the Federal Confidentiality of Alcohol and Drug Abuse Patient Records regulations: The Federal rules restrict any use of the information to criminally investigate or prosecute any alcohol or drug abuse patient.[facility] HospitalIn the event this information is protected by the Federal Confidentiality of Alcohol and Drug Abuse Patient Records regulations: The Federal rules restrict any use of the information to criminally investigate or prosecute any alcohol or drug abuse patient.[facility] HospitalIn the event this information is protected by the Federal Confidentiality of Alcohol and Drug Abuse Patient Records regulations: The Federal rules restrict any use of the information to criminally investigate or prosecute any alcohol or drug abuse patient.[facility] HospitalIn the event this information is protected by the Federal Confidentiality of Alcohol and Drug Abuse Patient Records regulations: The Federal rules restrict any use of the information to criminally investigate or prosecute any alcohol or drug abuse patient.[facility] HospitalIn the event this information is protected by the Federal Confidentiality of Alcohol and Drug Abuse Patient Records regulations: The Federal rules restrict any use of the information to criminally investigate or prosecute any alcohol or drug abuse patient.[facility] HospitalIn the event this information is protected by the Federal Confidentiality of Alcohol and Drug Abuse Patient Records regulations: The Federal rules restrict any use of the information to criminally investigate or prosecute any alcohol or drug abuse patient.[facility] HospitalIn the event this information is protected by the Federal Confidentiality of Alcohol and Drug Abuse Patient Records regulations: The Federal rules restrict any use of the information to criminally investigate or prosecute any alcohol or drug abuse patient.[facility] HospitalIn the event this information is protected by the Federal Confidentiality of Alcohol and Drug Abuse Patient Records regulations: The Federal rules restrict any use of the information to criminally investigate or prosecute any alcohol or drug abuse patient.[facility] HospitalIn the event this information is protected by the Federal Confidentiality of Alcohol and Drug Abuse Patient Records regulations: The Federal rules restrict any use of the information to criminally investigate or prosecute any alcohol or drug abuse patient.[facility] HospitalIn the event this information is protected by the Federal Confidentiality of Alcohol and Drug Abuse Patient Records regulations: The Federal rules restrict any use of the information to criminally investigate or prosecute any alcohol or drug abuse patient.[facility] HospitalIn the event this information is protected by the Federal Confidentiality of Alcohol and Drug Abuse Patient Records regulations: The Federal rules restrict any use of the information to criminally investigate or prosecute any alcohol or drug abuse patient.[facility] HospitalIn the event this information is protected by the Federal Confidentiality of Alcohol and Drug Abuse Patient Records regulations: The Federal rules restrict any use of the information to criminally investigate or prosecute any alcohol or drug abuse patient.[facility] HospitalIn the event this information is protected by the Federal Confidentiality of Alcohol and Drug Abuse Patient Records regulations: The Federal rules restrict any use of the information to criminally investigate or prosecute any alcohol or drug abuse patient.[facility] HospitalIn the event this information is protected by the Federal Confidentiality of Alcohol and Drug Abuse Patient Records regulations: The Federal rules restrict any use of the information to criminally investigate or prosecute any alcohol or drug abuse patient.[facility] HospitalIn the event this information is protected by the Federal Confidentiality of Alcohol and Drug Abuse Patient Records regulations: The Federal rules restrict any use of the information to criminally investigate or prosecute any alcohol or drug abuse patient.[facility] HospitalIn the event this information is protected by the Federal Confidentiality of Alcohol and Drug Abuse Patient Records regulations: The Federal rules restrict any use of the information to criminally investigate or prosecute any alcohol or drug abuse patient.[facility] HospitalIn the event this information is protected by the Federal Confidentiality of Alcohol and Drug Abuse Patient Records regulations: The Federal rules restrict any use of the information to criminally investigate or prosecute any alcohol or drug abuse patient.[facility] HospitalIn the event this information is protected by the Federal Confidentiality of Alcohol and Drug Abuse Patient Records regulations: The Federal rules restrict any use of the information to criminally investigate or prosecute any alcohol or drug abuse patient.[facility] HospitalIn the event this information is protected by the Federal Confidentiality of Alcohol and Drug Abuse Patient Records regulations: The Federal rules restrict any use of the information to criminally investigate or prosecute any alcohol or drug abuse patient.[facility] HospitalIn the event this information is protected by the Federal Confidentiality of Alcohol and Drug Abuse Patient Records regulations: The Federal rules restrict any use of the information to criminally investigate or prosecute any alcohol or drug abuse patient.[facility] HospitalIn the event this information is protected by the Federal Confidentiality of Alcohol and Drug Abuse Patient Records regulations: The Federal rules restrict any use of the information to criminally investigate or prosecute any alcohol or drug abuse patient.[facility] Reason for Visit (unrecogniz ed section and content) Reason Comments PT Discharge Specialty Diagnoses / Procedures Referred By Trace flores Referred To Contact [facility] Diagnoses Contusion of scalp, subsequent encounter Fall, subsequent encounter Proximal leg weakness Procedures CONSULT TO PHYSICAL THERAPY [facility]YSICAL [facility]APY [facility] 45 MINS Dallas Reed MD [address] [place] [address] Phone: tel: fax: [facility] [address] [place] [address] Referral ID Status Reason Start Date Expiration Date Visits Requested Visits Authorized [id number] Authorized PCP Requested Referral Auto-Generate d Referral [...] Diarrhea Specialty Diagnoses / Procedures Referred By Trace flores Referred To Contact Gastroenterology Diagnoses Diarrhea, unspecified type Procedures CONSULT TO GASTROENTEROLOGY OFFICE/OUTPATIENT [facility] MDM 60-74 MINUTES Dallas Reed MD [address] [place] [address] Referral ID Status Reason Start Date Expiration Date V isits Requested Visits Authorized [id number] Closed PCP Requested Referral 2023 2024 1 [...] Comments Hospital F/U Reason Onset Date Comments [facility] 06/22/2024 Engagement Call Reason Comments ER F/U Reason Onset Date Comments [facility] 07/22/2024 Chronic Disease Management Routine Call Reason Onset Date Comments [facility] 07/24/2024 Chronic Disease Management Routine Call Reason Comments Surgical Clearance Forms Reason Onset Date Comments [facility] 08/24/2024 Chronic Disease Management Routine Call Reason Onset Date Comments [facility] 08/28/2024 Chronic Disease Management Routine Call Reason [...] Comments Fatigue No energy x 2 months Reason Comments Opened In Error OPENED IN ERROR Reason Onset Date Comments Population Health Navigation Outreach 05/24/2025 Healthy at Home Reason Comments Transition Of Care Reason Onset Date Comments Transition Of Care 05/24/2025 Care Teams (unrecognized sec tion and content) [...] 2025 End: January 12, 2025 Dr. Hernandez iKng MD Emergency Provider Active Sta rt: January 12, 2025 End: January 12, 2025 Foster Care Social Worker Relationship Specialty Start Date End Date Dallas Reed MD [address] [place], [place] [id number] PCP - General Internal Medicine 02/10/18 [place] Elizalde, talent assistantMiter Operator Internal Medicine 02/05/21 Foster Care Social Worker Relationship Specialty Start Date End Date Dallas Reed MD [address] [place] [address] PCP - General Internal Medicine 02/10/18 Denver Elizalde, talent assistantMiter Operator Internal Medicine 02/05/21 Foster Care Social Worker Relationship Specialty Start Date End Date Dallas Reed MD [address] [facility] [place] [address] PCP - General Internal Medicine 02/10/18 Denver Elizalde, talent assistantMiter Operator Internal Medicine 02/05/21 Foster Care Social Worker Relationship Specialty Start Date End Date Dallas Reed MD [address] [facility] [place] [address] PCP - General Internal Medicine 02/10/18 Denver Elizalde, talent assistantMiter Operator Internal Medicine 02/05/21 Foster Care Social Worker Relationship Specialty Start Date End Date Dallas Reed MD [address] [facility] [place] [address] PCP - General Internal Medicine 02/10/18 Denver Elizalde, talent assistantMiter Operator Internal Medicine 02/05/21 Foster Care Social Worker Relationship Specialty Start Date End Date Dallas Reed MD [address] [facility] [place] [address] PCP - General Internal Medicine 02/10/18 Denver Elizalde, talent assistantMiter Operator Internal Medicine 02/05/21 Foster Care Social Worker Relationship Specialty Start Date End Date Dallas Reed MD [address] [facility] [place] [address] PCP - General Internal Medicine 02/10/18 Denver Elizalde, talent assistantMiter Operator Internal Medicine 02/05/21 Foster Care Social Worker Relationship Specialty Start Date End Date Dallas Reed MD [address] [facility] [place] [address] PCP - General Internal Medicine 02/10/18 Fide Goff, talent assistantMiter Operator Internal Medicine 02/05/21 Foster Care Social Worker Relationship Specialty Start Date End Date Dallas Reed MD [address] [facility] [place] [address] PCP - General Internal Medicine 02/10/18 Fide Goff, talent assistantMiter Operator Internal Medicine 02/05/21 Foster Care Social Worker Relationship Specialty Start Date End Date Dallas Reed MD [address] [facility] [place] [address] PCP - General Internal Medicine 02/10/18 Fide Goff, talent assistantMiter Operator Internal Medicine 02/05/21 Foster Care Social Worker Relationship Specialty Start Date End Date Dallas Reed MD [address] [facility] [place] [address] PCP - General Internal Medicine 02/10/18 Fide Goff, talent assistantMiter Operator Internal Medicine 02/05/21 Team Status: Active Member [...] Reed MD Primary Care Provider Active Dr. Omdi Perez MD Attending Provider, Referring Provider Active Foster Care Social Worker Relationship Specialty Start Date End Date Dallas Reed MD [address] [facility] [place] [address] PCP - General Internal Medicine 02/10/18 Fide Goff, talent assistantMiter Operator Internal Medicine 02/05/21 Foster Care Social Worker Relationship Specialty Start Date End Date Dallas Reed MD [address] [facility] [place] [address] PCP - General Internal Medicine 02/10/18 Fide Goff, talent assistantMiter Operator Internal Medicine 02/05/21 Team Status: Inactive Member Role Status Dates Dr. Dallas Reed MD Primary Care Provider, Refer ring Provider Active Dr. Omid Perez MD Attending Provider Active Team Status: Active Member Role Status Dates Dr. Dallas Reed MD Primary Care Provider Active Dr. Oimd Perez MD Admit Provider, Attending Provider, Referring Provider, Other Provider Active Dr. Dieter Christianson MD Other Provider Active Team Status: Inactive Member Role Status Dates Dr. Dallas Reed MD Primary Care Provider Active Dr. Omid Perez MD Admit Provider, Attending Provider, Referring Provider Active Dr. Dieter Christianson MD Other Provider Active Foster Care Social Worker Relationship Specialty Start Date End Date Dallas Reed MD [address] [facility], [place] [address] PCP - General Internal Medicine 02/10/18 Fide Goff, talent assistantMiter Operator Internal Medicine 02/05/21 Foster Care Social Worker Relationship Specialty Start Date End Date Dallas Reed MD [address] [facility], [place] [address] PCP - General Internal Medicine 02/10/18 Fide Goff, talent assistantMiter Operator Internal Medicine 02/05/21 Team Status: Active Member Role Status Dates Dr. Dallas Reed MD Primary Care Provider Active Dr. Donato Longoria MD Attending Provider Active Dr. Omid Perez MD Referring Provider Active Team Status: Inactive Member Role Status Dates Dr. Dallas Reed MD Primary Care Provider Active Benita PEREZ PASheelaC Attending Provider, Referring Provider Active Foster Care Social Worker Relationship Specialty Start Date End Date Dallas Reed MD [address] [facility], [place] [id number] PCP - General Internal Medicine 02/10/18 Fide Goff, talent assistantMiter Operator Internal Medicine 02/05/21 Team Status: Inactive Member Role Status Dates Dr. Dallas Reed MD Primary Care Provider Active Dr. Jovanny Rodriguez MD Attending Provider, Referring Provider Active Foster Care Social Worker Relationship Specialty Start Date End Date Dallas Reed MD [address] [facility] [place] [address] PCP - General Internal Medicine 02/10/18 Fide Goff, talent assistantMiter Operator Internal Medicine 02/05/21 Foster Care Social Worker Relationship Specialty Start Date End Date Dallas Reed MD [address] [facility] [place] [address] PCP - General Internal Medicine 02/10/18 Fide Goff, talent assistantMiter Operator Internal Medicine 02/05/21 Foster Care Social Worker Relationship Specialty Start Date End Date Dallas Reed MD [address] [facility] [place] [address] PCP - General Internal Medicine 02/10/18 Fide Goff, talent assistantMiter Operator Internal Medicine 02/05/21 Foster Care Social Worker Relationship Specialty Start Date End Date Dallas Reed MD [address] [facility] [place] [address] PCP - General Internal Medicine 02/10/18 Fide Goff, talent assistantMiter Operator Internal Medicine 02/05/21 Foster Care Social Worker Relationship Specialty Start Date End Date Dallas Reed MD [address] [facility] [place] [address] PCP - General Internal Medicine 02/10/18 Fide Goff, talent assistantMiter Operator Internal Medicine 02/05/21 Foster Care Social Worker Relationship Specialty Start Date End Date Dallas Reed MD [address] [facility] [place] [address] PCP - General Internal Medicine 02/10/18 Fide Goff, talent assistantMiter Operator Internal Medicine 02/05/21 Foster Care Social Worker Relationship Specialty Start Date End Date Dallas Reed MD [address] [facility] [place] [address] PCP - General Internal Medicine 02/10/18 Fide Goff, talent assistantMiter Operator Internal Medicine 02/05/21 Foster Care Social Worker Relationship Specialty Start Date End Date Dallas Reed MD [address] [facility] [place] [address] PCP - General Internal Medicine 02/10/18 Fide Goff, talent assistantMiter Operator Internal Medicine 02/05/21 Foster Care Social Worker Relationship Specialty Start Date End Date Dallas Reed MD [address] [facility] [place] [address] PCP - General Internal Medicine 02/10/18 Fide Goff, talent assistantMiter Operator Internal Medicine 02/05/21 Foster Care Social Worker Relationship Specialty Start Date End Date Dallas Reed MD [address] [facility] [place] [address] PCP - General Internal Medicine 02/10/18 Fide Goff, talent assistantMiter Operator Internal Medicine 02/05/21 Foster Care Social Worker Relationship Specialty Start Date End Date Dallas Reed MD [address] [facility] [place] [address] PCP - General Internal Medicine 02/10/18 Fide Goff, talent assistantMiter Operator Internal Medicine 02/05/21 Foster Care Social Worker Relationship Specialty Start Date End Date Dallas Reed MD [address] [facility] [place] [address] PCP - General Internal Medicine 02/10/18 Fide Goff, talent assistantMiter Operator Internal Medicine 02/05/21 Foster Care Social Worker Relationship Specialty Start Date End Date Dallas Reed MD [address] [facility] [place] [address] PCP - General Internal Medicine 02/10/18 Fide Goff, talent assistantMiter Operator Internal Medicine 02/05/21 Foster Care Social Worker Relationship Specialty Start Date End Date Dallas Reed MD [address] [facility] [place] [address] PCP - General Internal Medicine 02/10/18 Fide Goff, talent assistantMiter Operator Internal Medicine 02/05/21 Darya Borden, X RAY DEVELOPER.PRODUCT PROMOTER RETAIL PET [address] [facility] [place] [address] Edger Liner Internal Medicine 08/28/24 Foster Care Social Worker Relationship Specialty Start Date End Date Dallas Reed MD [address] [facility] [place] [address] PCP - General Internal Medicine 02/10/18 Fide Goff, talent assistantMiter Operator Internal Medicine 02/05/21 Darya Borden, X RAY DEVELOPER.PRODUCT PROMOTER RETAIL PET [address] [facility] [place] [address] Edger Liner Internal Medicine 08/28/24 Foster Care Social Worker Relationship Specialty Start Date End Date Dallas Reed MD [address] [facility] [place] [address] PCP - General Internal Medicine 02/10/18 Fide Goff, talent assistantMiter Operator Internal Medicine 02/05/21 Darya Borden, X RAY DEVELOPER.PRODUCT PROMOTER RETAIL PET [address] [facility] [place] [address] Edger Liner Internal Medicine 08/28/24 Foster Care Social Worker Relationship Specialty Start Date End Date Dallas Rede MD [address] [facility] [place] [address] PCP - General Internal Medicine 02/10/18 Darya Borden, X RAY DEVELOPER.PRODUCT PROMOTER RETAIL PET [address] [place] [address] Edger Liner Internal Medicine 08/28/24 Foster Care Social Worker Relationship Specialty Start Date End Date Dallas Reed MD [address] [place] [address] PCP - General Internal Medicine 02/10/18 Darya Borden, X RAY DEVELOPER.PRODUCT PROMOTER RETAIL PET [address] [place] [address] Edger Liner Internal Medicine 08/28/24 Foster Care Social Worker Relationship Specialty Start Date End Date Dallas Reed MD [address] [place] [address] PCP - General Internal Medicine 02/10/18 Darya Borden, X RAY DEVELOPER.PRODUCT PROMOTER RETAIL PET [address] [place] [address] Edger Liner Internal Medicine 08/28/24 Foster Care Social Worker Relationship Specialty Start Date End Date Dallas Reed MD [address] [place] [address] PCP - General Internal Medicine 02/10/18 Darya Borden, X RAY DEVELOPER.PRODUCT PROMOTER RETAIL PET [address] [place] [address] Edger Liner Internal Medicine 08/28/24 Foster Care Social Worker Relationship Specialty Start Date End Date Dallas Reed MD [address] [place] [address] PCP - General Internal Medicine 02/10/18 Darya Borden, X RAY DEVELOPER.PRODUCT PROMOTER RETAIL PET [address] [place] [address] Edger Liner Internal Medicine 08/28/24 Foster Care Social Worker Relationship Specialty Start Date End Date Dallas Reed MD [address] [place] [address] PCP - General Internal Medicine 02/10/18 Darya Borden, X RAY DEVELOPER.PRODUCT PROMOTER RETAIL PET [address] [place] [address] Edger Liner Internal Medicine 08/28/24 Foster Care Social Worker Relationship Specialty Start Date End Date Dallas Reed MD [address] [place] [address] PCP - General Internal Medicine 02/10/18 Darya Borden, X RAY DEVELOPER.PRODUCT PROMOTER RETAIL PET [address] [place] [address] Edger Liner Internal Medicine 08/28/24 Foster Care Social Worker Relationship Specialty Start Date End Date Dallas Reed MD [address] [place] [address] PCP - General Internal Medicine 02/10/18 Darya Borden, X RAY DEVELOPER.PRODUCT PROMOTER RETAIL PET [address] [place] [address] Edger Liner Internal Medicine 08/28/24 Foster Care Social Worker Relationship Specialty Start Date End Date Dallas Reed MD [address] [place] [address] PCP - General Internal Medicine 02/10/18 Darya Borden, X RAY DEVELOPER.PRODUCT PROMOTER RETAIL PET [address] [place] [address] Edger Liner Internal Medicine 08/28/24 Foster Care Social Worker Relationship Specialty Start Date End Date Dallas Reed MD [address] [place] [address] PCP - General Internal Medicine 02/10/18 Darya Borden, X RAY DEVELOPER.PRODUCT PROMOTER RETAIL PET [address] [place] [address] Edger Liner Internal Medicine 08/28/24 Foster Care Social Worker Relationship Specialty Start Date End Date Dallas Reed MD [address] [place] [address] PCP - General Internal Medicine 02/10/18 Darya Borden, X RAY DEVELOPER.PRODUCT PROMOTER RETAIL PET [address] [place] [address] Edger Liner Internal Medicine 08/28/24 Yessenia Price [facility] [address] [place] [address] Transitional Care Pharmacist Pharmacy 12/04/24 01/04/25 Adriane White, CHRISTIANO [address] [address] Primary Care Excavating Supervisor 12/04/24 Foster Care Social Worker Relationship Specialty Start Date End Date Dallas Reed MD [address] [place] [address] PCP - General Internal Medicine 02/10/18 Darya Borden, X RAY DEVELOPER.PRODUCT PROMOTER RETAIL PET [address] [place] [address] Edger Liner Internal Medicine 08/28/24 Yessenia Price [facility] [address] [place] [address] Transitional Care Pharmacist Pharmacy 12/04/24 01/04/25 Adriane White, CHRISTIANO [facility] [address] [place] [address] Primary Care Excavating Supervisor 12/04/24 Foster Care Social Worker Relationship Specialty Start Date End Date Dallas Reed MD [address] [place] [address] PCP - General Internal Medicine 02/10/18 Darya Borden, X RAY DEVELOPER.PRODUCT PROMOTER RETAIL PET [address] [place] [address] Edger Liner Internal Medicine 08/28/24 Yessenia Price [facility] [address] [place] [address] Transitional Care Pharmacist Pharmacy 12/04/24 01/04/25 Adriane White, CHRISTIANO [facility] [address] [place] [address] Primary Care Excavating Supervisor 12/04/24 Foster Care Social Worker Relationship Specialty Start Date End Date Dallas Reed MD [address] [place], [place] [address]31 PCP - General Internal Medicine 02/10/18 Darya Borden, X RAY DEVELOPER.PRODUCT PROMOTER RETAIL PET [address] [place] [address] Edger Liner Internal Medicine 08/28/24 [facility] [place] [phone] Transitional Care Pharmacist Pharmacy 12/04/24 01/04/25 Adriane White, CHRISTIANO [facility] [address] [place] [address] Primary Care Excavating Supervisor 12/04/24 Foster Care Social Worker Relationship Specialty Start Date End Date Dallas Reed MD [address] [place] [address] PCP - General Internal Medicine 02/10/18 Darya Borden, X RAY DEVELOPER.PRODUCT PROMOTER RETAIL PET [address] [place] [address] Edger Liner Internal Medicine 08/28/24 [facility] [address] [place] [address] Transitional Care Pharmacist Pharmacy 12/04/24 01/04/25 Adriane White, CHRISTIANO [facility] [address] [place] [address] Primary Care Excavating Supervisor 12/04/24 Foster Care Social Worker Relationship Specialty Start Date End Date Dallas Reed MD [address] [place] [address] PCP - General Internal Medicine 02/10/18 Darya Borden, X RAY DEVELOPER.PRODUCT PROMOTER RETAIL PET [address] [place] [address] Edger Liner Internal Medicine 08/28/24 Yessenia Price [facility] [address] [place] [phone] Transitional Care Pharmacist Pharmacy 12/04/24 01/04/25 Adriane White, CHRISTIANO [facility] [address] [place] [phone] Primary Care Excavating Supervisor 12/04/24 Foster Care Social Worker Relationship Specialty Start Date End Date Dallas Reed MD [address] [place] [address] PCP - General Internal Medicine 02/10/18 Darya Borden, X RAY DEVELOPER.PRODUCT PROMOTER RETAIL PET [address] [place] [address] Edger Liner Internal Medicine 08/28/24 Yessenia Price [facility] [address] [place], [place] [phone] Transitional Care Pharmacist Pharmacy 12/04/24 01/04/25 Adriane White, CHRISTIANO [facility] [address] [place] [phone] Primary Care Excavating Supervisor 12/04/24 Foster Care Social Worker Relationship Specialty Start Date End Date Dallas Reed MD [address] [place] [address] PCP - General Internal Medicine 02/10/18 Darya Borden, X RAY DEVELOPER.PRODUCT PROMOTER RETAIL PET [address] [place] [address] Edger Liner Internal Medicine 08/28/24 Yessenia Price bell [address] [place] [phone] Transitional Care Pharmacist Pharmacy 12/04/24 01/04/25 Adriane White, RN [facility] [address] [place] [address] Primary Care Excavating Supervisor 12/04/24 Foster Care Social Worker Relationship Specialty Start Date End Date Dallas Reed MD [address] [place] [address] PCP - General Internal Medicine 02/10/18 Darya Borden, X RAY DEVELOPER.PRODUCT PROMOTER RETAIL PET [address] [place], [place] [address] Edger Liner Internal Medicine 08/28/24 Yessenia Price RPh [address] [place] [phone] Transitional Care Pharmacist Pharmacy 12/04/24 01/04/25 Adriane White, RN [facility] [address] [place] [address] Primary Care Excavating Supervisor 12/04/24 Team Status: Active Member Role Status Dates Dr. Dallas Reed MD Primary Care Provider Active Start: August 23, 2024 Dr. aLra Fonseca MD Attending Provider Active Start: August [...] Active Member Role Status Dates Dr. Dallas eRed MD Primary Care Provider Active Start: August [...] November 28, 2024 End: November 28, 2024 Foster Care Social Worker Relationship Specialty Start Date End Date Dallas Reed MD [address] [place] [address] PCP - General Internal Medicine 02/10/18 Darya Borden, X RAY DEVELOPER.PRODUCT PROMOTER RETAIL PET [address] [place] [address] Edger Liner Internal Medicine 08/28/24 Yessenia Price [facility] [address] [place] [address] Transitional Care Pharmacist Pharmacy 12/04/24 01/04/25 Adriane White, CHRISTIANO [facility] [address] [place] [phone] Primary Care Excavating Supervisor 12/04/24 Foster Care Social Worker Relationship Specialty Start Date End Date Dallas Reed MD [address] [place] [address] PCP - General Internal Medicine 02/10/18 Darya Borden, X RAY DEVELOPER.PRODUCT PROMOTER RETAIL PET [address] [place], [place] [address] Edger Liner Internal Medicine 08/28/24 Yessenia Price [facility] [address] [place] [address] Transitional Care Pharmacist Pharmacy 12/04/24 01/04/25 Adriane White, CHRISTIANO [facility] [address] [place] [phone] Primary Care Excavating Supervisor 12/04/24 Foster Care Social Worker Relationship Specialty Start Date End Date Dallas Reed MD [address] [place] [address] PCP - General Internal Medicine 02/10/18 Darya Borden, X RAY DEVELOPER.PRODUCT PROMOTER RETAIL PET [address] [place] [address] Edger Liner Internal Medicine 08/28/24 Yessenia Price, [facility] [address] [place] [phone] Transitional Care Pharmacist Pharmacy 12/04/24 01/04/25 Adriane White, CHRISTIANO [facility] [address] [place] [address] Primary Care Excavating Supervisor 12/04/24 Foster Care Social Worker Relationship Specialty Start Date End Date Dallas Reed MD [address] [place] [address] PCP - General Internal Medicine 02/10/18 Darya Borden, X RAY DEVELOPER.PRODUCT PROMOTER RETAIL PET [address] [place] [address] Edger Liner Internal Medicine 08/28/24 Adriane White, CHRISTIANO [facility] [address] [place] [phone] Miter Operator 01/02/25 Team Status: Inactive Member Role Status [...] Provider Active Start : February 14, 2025 Foster Care Social Worker Relationship Specialty Start Date End Date Dallas Reed MD [address] [place] [address] PCP - General Internal Medicine 02/10/18 Darya Borden, X RAY DEVELOPER.PRODUCT PROMOTER RETAIL PET [address] [place] [address] Edger Liner Internal Medicine 08/28/24 Adriane White, CHRISTIANO [facility] [address] [place] [address] Miter Operator 01/02/25 Foster Care Social Worker Relationship Specialty Start Date End Date Dallas Reed MD [address] [place] [address] PCP - General Internal Medicine 02/10/18 Darya Borden, X RAY DEVELOPER.PRODUCT PROMOTER RETAIL PET [address] [place], [place] [address] Edger Liner Internal Medicine 08/28/24 Adriane White, CHRISTIANO [facility] [address] [place] [address] Miter Operator 01/02/25 Foster Care Social Worker Relationship Specialty Start Date End Date Dallas Reed MD [address] [place] [address] PCP - General Internal Medicine 02/10/18 Darya Borden, X RAY DEVELOPER.PRODUCT PROMOTER RETAIL PET [address] [place], [place] [address]32[address] Edger Liner Internal Medicine 08/28/24 Adriane White, RN [facility] [address] [place] [phone] Miter Operator 01/02/25 Team Status: Inactive Member Role Status Dates Dr. Dallas Reed MD Primary Care Provider Active Start: February 27, 2025 End: February 27, 2025 Dr. Dallas Reed MD Referring Provider Active Start: February 27, 2025 End: February 27, 2025 CHRIS Orellana Attending Provider Active Star t: February 27, 2025 End: February 27, 2025 Foster Care Social Worker Relationship Specialty Start Date End Date Dallas Reed [address] [place] [address] PCP - General 07/04/19 Foster Care Social Worker Relationship Specialty Start Date End Date Dallas Reed MD [address] [place], [place] [address]271 PCP - General Internal Medicine 02/10/18 Darya Borden, X RAY DEVELOPER.PRODUCT PROMOTER RETAIL PET [address] [place] [address] Edger Liner Internal Medicine 08/28/24 Adriane White, RN [facility] [address] [place] [address] Miter Operator 01/02/25 Foster Care Social Worker Relationship Specialty Start Date End Date Dallas Reed [address] [place] [address] PCP - General 07/04/19 Foster Care Social Worker Relationship Specialty Start Date End Date Dallas Reed [address] [place] [address] PCP - General 07/04/19 Foster Care Social Worker Relationship Specialty Start Date End Date Dallas Reed [address] [place] [address] PCP - General 07/04/19 Foster Care Social Worker Relationship Specialty Start Date End Date Dallas Reed [address] [place] [address] PCP - General 07/04/19 Foster Care Social Worker Relationship Specialty Start Date End Date Dallas Reed MD [address] [place] [address] PCP - General Internal Medicine 02/10/18 Darya Borden, X RAY DEVELOPER.PRODUCT PROMOTER RETAIL PET [address] [place] [address] Edger Liner Internal Medicine 08/28/24 Adriane White, CHRISTIANO [facility] [address] [place] [address] Miter Operator 01/02/25 Foster Care Social Worker Relationship Specialty Start Date End Date Dallas Reed MD [address] [place] [address] PCP - General Internal Medicine 02/10/18 Darya Borden, X RAY DEVELOPER.PRODUCT PROMOTER RETAIL PET [address] [place] [address] Edger Liner Internal Medicine 08/28/24 Adriane White, CHRISTIANO [facility] [address] [place] [address] Miter Operator 01/02/2503/20 Team Status: Active Member Role/Relationship Status [...] 10, 2025 End: May 10, 2025 Mike H Roof ACID PURIFIER, ACID PURIFIER-C Attending Provider Active S tart: May 10, [...] 2025 End: May 10, 2025 Mike Jay ACID PURIFIER, ACID PURIFIER-C Attending Provider Active S tart: May 10, 2025 End: May 10, 2025 Team Status: Inactive Member Role/Relationship Status Dates Dr. Dallas Reed MD Primary Care Provider Active Start: May 10, 2025 End: May 10, 2025 Mike Jay ACID PURIFIER, ACID PURIFIER-C Attending Provider Active S tart: May 10, 2025 End: May 10, 2025 Mike Jay ACID PURIFIER, ACID PURIFIER-C Referring Provider Active S tart: May 10, 2025 End: May 10, 2025 Foster Care Social Worker Relationship Specialty Start Date End Date Dallas Reed MD [address] [place], [place] [address] PCP - General Internal Medicine 02/10/18 Darya Borden, X RAY DEVELOPER.PRODUCT PROMOTER RETAIL PET [address] [place] [address] Edger Liner Internal Medicine 08/28/24 Team Status: Inactive Member [...] 2025 End: May 10, 2025 Mike Jay ACID PURIFIER, ACID PURIFIER-C Attending Provider Active S tart: May 10, 2025 End: May 10, 2025 Team Status: Inactive Member Role/Relationship Status Dates Dr. Dallas Reed MD Primary Care Provider Active Start: May 10, 2025 End: May 10, 2025 Miek Jay ACID PURIFIER, ACID PURIFIER-C Attending Provider Active S tart: May 10, 2025 End: May 10, 2025 Mike Jay ACID PURIFIER, ACID PURIFIER-C Referring Provider Active S tart: May 10, 2025 End: May 10, 2025 Team Status: Active Member Role/Relationship Status Dates Dr. Dallas Reed MD Primary Care Provider Active Start: May 21, 2025 Dr. Veena Nelson DO Emergency Provider Active Start: May 21, 2025 Dr. Cameron Solares DO Admit Provider Active Start: May 21, 2025 Dr. Cameron Solares DO Attending Provider Active Start: May 21, 2025 Team Status: Inactive Member Role/Relationship Status Dates Dr. Dallas Reed MD Primary Care Provider Active Start: May 21, 2025 End: May 22, 2025 Dr. Veena Nelson DO Emergency Provider Active Start: May 21, 2025 End: May 22, 2025 Dr. Cameron Solares DO Admit Provider Active Start: May 21, 2025 End: May 22, 2025 Dr. Cameron Solares DO Other Provider Active Start: May 21, 2025 End: May 22, 2025 Dr. Emily Horner MD Other Provider Active Start: May 21, 2025 End: May 22, 2025 Dr. Tamera Jorgensen MD Other Provider Active Start : May 21, 2025 End: May 22, 2025 Dr. Marcel Cordova MD Other Provider Active Start : May 21, 2025 End: May 22, 2025 Dr. Randy Soler MD Other Provider Active St art: May 21, 2025 End: May 22, 2025 Dr. Jaciel Bahena MD Other Provider Active Star t: May 21, 2025 End: May 22, 2025 Dr. Dedrick Zamarripa MD Other Provider Active Sta rt: May 21, 2025 End: May 22, 2025 Dr. Gilmar Mueller MD Other Provider Active Star t: May 21, 2025 End: May 22, 2025 Dr. Donato Longoria MD Other Provider Active Start : May 21, 2025 End: May 22, 2025 Dr. Cameron Leiva DO Other Provider Active Sta rt: May 21, 2025 End: May 22, 2025 Dr. Lorraine Mcdowell MD Other Provider Active Star t: May 21, 2025 End: May 22, 2025 Dr. Alexandru Laughlin MD Other Provider Active St art: May 21, 2025 End: May 22, 2025 Dr. Beronica Turcios MD Other Provider Active Start: May 21, 2025 End: May 22, 2025 Dr. Elisha Eason MD Other Provider Active Start : May 21, 2025 End: May 22, 2025 Dr. Jm Wilson MD Other Provider Active S tart: May 21, 2025 End: May 22, 2025 Dr. Sinan Toro MD Other Provider Active Start: May 21, 2025 End: May 22, 2025 Mike Jay ACID PURIFIER, ACID PURIFIER-C Other Provider Active Start : May 21, 2025 End: May 22, 2025 Kylah Arias PA, PA Other Provider Active Start: May 21, 2025 End: May 22, 2025 CHRIS Murrell Other Provider Active Start: May 21, 2025 End: May 22, 2025 Dr. Olamide Morales MD Attending Provider Active Start: May 21, 2025 End: May 22, 2025 Dr. Gricel Donald MD Other Provider Active Start: May 21, 2025 End: May 22, 2025 Team Status: Active Member Role/Relationship Status Dates Dr. Dallas Reed MD Primary Care Provider Active Start: May 21, 2025 Dr. Veena Nelson DO Emergency Provider Active Start: May 21, 2025 Dr. Cameron Solares DO Admit Provider Active Start: May 21, 2025 Dr. Cameron Solares DO Other Provider Active Start: May 21, 2025 Dr. Emily Horner MD Other Provider Active Start: May 21, 2025 Dr. Tamera Jorgensen MD Other Provider Active Start : May 21, 2025 Dr. Marcel Cordova MD Other Provider Active Start : May 21, 2025 Dr. Randy Soler MD Other Provider Active St art: May 21, 2025 Dr. Jaciel Bahena MD Other Provider Active Star t: May 21, 2025 Dr. Dedrick Zamarripa MD Other Provider Active Sta rt: May 21, 2025 Dr. Gilmar Mueller MD Other Provider Active Star t: May 21, 2025 Dr. Donato Longoria MD Other Provider Active Start : May 21, 2025 Dr. Cameron Leiva , DO Other Provider Active Sta rt: May 21, 2025 Dr. Lorraine Mcdowell MD Attending Provider Active Start: May 21, 2025 Dr. Lorraine Mcdowell MD Other Provider Active Star t: May 21, 2025 Dr. Alexandru Laughlin MD Other Provider Active St art: May 21, 2025 Dr. Beronica Turcios MD Other Provider Active Start: May 21, 2025 Dr. Elisha Eason MD Other Provider Active Start : May 21, 2025 Dr. Jm Wilson MD Other Provider Active S tart: May 21, 2025 Dr. Sinan Toro MD Other Provider Active Start: May 21, 2025 Mike Jay ACID PURIFIER, ACID PURIFIER-C Other Provider Active Start : May 21, 2025 Kylah Arias PA, PA Other Provider Active Start: May 21, 2025 CHRIS Murrell Other Provider Active Start: May 21, 2025 Dr. Olamide Morales MD Other Provider Active St art: May 21, 2025 Team Status: Active Member Role/Relationship Status Dates Dr. Dallas Reed MD Primary Care Provider Active Start: May 22, 2025 Dr. Veena Nelson , Emergency Provider Active Start: May 22, 2025 Dr. Cameron Solares DO Admit Provider Active Start: May 22, 2025 Dr. Cameron Solares DO Other Provider Active Start: May 22, 2025 Dr. Emily Horner MD Other Provider Active Start: May 22, 2025 Dr. Tamera Jorgensen MD Other Provider Active Start : May 22, 2025 Dr. Marcel Cordova MD Other Provider Active Start : May 22, 2025 Dr. Randy oSler MD Other Provider Active St art: May 22, 2025 Dr. Jaciel Bahena MD Other Provider Active Star t: May 22, 2025 Dr. Dedrick Zamarripa MD Other Provider Active Sta rt: May 22, 2025 Dr. Gilmar Mueller MD Other Provider Active Star t: May 22, 2025 Dr. Donato Longoria MD Other Provider Active Start : May 22, 2025 Dr. Cameron Leiva , Other Provider Active Sta rt: May 22, 2025 Dr. Lorraine Mcdowell MD Other Provider Active Star t: May 22, 2025 Dr. Alexandru Laughlin MD Other Provider Active St art: May 22, 2025 Dr. Beronica Turcios MD Other Provider Active Start: May 22, 2025 Dr. Elisha Eason MD Other Provider Active Start : May 22, 2025 Dr. Jm Wilson MD Other Provider Active S tart: May 22, 2025 Dr. Sinan Toor MD Other Provider Active Start: May 22, 2025 Mike Jay ACID PURIFIER, ACID PURIFIER-C Other Provider Active Start : May 22, 2025 Kylah Arias PA, PA Other Provider Active Start: May 22, 2025 CHRIS Murrell Other Provider Active Start: May 22, 2025 Dr. Olamide Morales MD Attending Provider Active Start: May 22, 2025 Dr. Olamide Morales MD Other Provider Active St art: May 22, 2025 Dr. Gricel Donald MD Other Provider Active Start: May 22, 2025 Team Status: Active Member Role/Relationship Status Dates Dr. Dallas Reed MD Primary Care Provider Active Start: May 22, 2025 Dr. Veena Nelson , Emergency Provider Active Start: May 22, 2025 Dr. Cameron Solares DO Admit Provider Active Start: May 22, 2025 Dr. Cameron Solares DO Other Provider Active Start: May 22, 2025 Dr. Emily Horner MD Other Provider Active Start: May 22, 2025 Dr. Tamera Jorgensen MD Other Provider Active Start : May 22, 2025 Dr. Marcel Cordova MD Other Provider Active Start : May 22, 2025 Dr. Randy Soler MD Other Provider Active St art: May 22, 2025 Dr. Jaciel Bahena MD Other Provider Active Star t: May 22, 2025 Dr. Dedrick Zamarripa MD Other Provider Active Sta rt: May 22, 2025 Dr. Gilmar Mueller MD Other Provider Active Star t: May 22, 2025 Dr. Donato Longoria MD Other Provider Active Start : May 22, 2025 Dr. Cameron Leiva DO Other Provider Active Sta rt: May 22, 2025 Dr. Lorraine Mcdowell MD Other Provider Active Star t: May 22, 2025 Dr. Alexandru Laughlin MD Attending Provider Active Start: May 22, 2025 Dr. Alexandru Laughlin MD Other Provider Active St art: May 22, 2025 Dr. Beronica Turcios MD Other Provider Active Start: May 22, 2025 Dr. Elisha Eason MD Other Provider Active Start : May 22, 2025 Dr. Jm Wilson MD Other Provider Active S tart: May 22, 2025 Dr. Sinan Toro MD Other Provider Active Start: May 22, 2025 Mike Jay ACID PURIFIER, ACID PURIFIER-C Other Provider Active Start : May 22, 2025 Kylah Arias PA, PA Other Provider Active Start: May 22, 2025 CHRIS Murrell Other Provider Active Start: May 22, 2025 Dr. Olamide Morales MD Other Provider Active St art: May 22, 2025 Dr. Gricel Donald MD Other Provider Active Start: May 22, 2025 Foster Care Social Worker Relationship Specialty Start Date End Date Dallas Reed MD [address] [facility] [place] [address] PCP - General Internal Medicine 02/10/18 Darya Borden, X RAY DEVELOPER.PRODUCT PROMOTER RETAIL PET [address] [facility] [place] [address] Edger Liner Internal Medicine 08/28/24 Francisco Randolph, talent assistant Excavating Supervisor 05/23/25 Foster Care Social Worker Relationship Specialty Start Date End Date Dallas Reed MD [address] [facility], [place] [id number] PCP - General Internal Medicine 02/10/18 Darya Borden, X RAY DEVELOPER.PRODUCT PROMOTER RETAIL PET [address] [facility], [place] [id number] Edger Liner Internal Medicine 08/28/24 Francisco Randolph, talent assistant Excavating Supervisor 05/23/25 Foster Care Social Worker Relationship Specialty Start Date End Date Dallas Reed MD [address] [facility] [place] [address] PCP - General Internal Medicine 02/10/18 Darya Borden, X RAY DEVELOPER.PRODUCT PROMOTER RETAIL PET [address] [facility] [place] [address] Edger Liner Internal Medicine 08/28/24 Francisco Randolph RN Primary Care Excavating Supervisor 05/23/25 Foster Care Social Worker Relationship Specialty Start Date End Date Dallas Reed MD [address] [facility] [place] [address] PCP - General Internal Medicine 02/10/18 Darya Borden, X RAY DEVELOPER.PRODUCT PROMOTER RETAIL PET [address] [facility] [place] [address] Edger Liner Internal Medicine 08/28/24 Francisco Randolph, talent assistant Excavating Supervisor 05/23/25 Team Status: Inactive Member Role/Relationship Status Dates Dr. Dallas Reed MD Primary Care Provider Active Start: June 05, 2025 End: June 05, 2025 Dr. Dallas Reed MD Referring Provider Active Start: June 05, 2025 End: June 05, 2025 Mike Jay ACID PURIFIER, ACID PURIFIER-C Attending Provider Active S tart: June 05, 2025 End: June 05, 2025 Team Status: Active Member Role/Relationship Status Dates Dr. Dallas Reed MD Primary care physician Activ e Team Status: Inactive Member Role/Relationship Status Dates Dr. Dallas Reed MD Primary care physician Activ e Start: February 27, 2025 End: February 27, 2025 Dr. Dallas Reed MD Referring Provider Active Start: February 27, 2025 End: February 27, 2025 CHRIS Orellana Attending physician Active Sta rt: February 27, 2025 End: February 27, 2025 Team Status: Inactive Member Role/Relationship Status Dates Dr. Dallas Reed MD Primary care physician Activ e Start: April 18, 2025 End: April 18, 2025 Dr. Dallas Reed MD Referring Provider Active Start: April 18, 2025 End: April 18, 2025 Dr. Dustin Hawk MD Attending physician Active Start: April 18, 2025 End: April 18, 2025 Team Status: Inactive Member Role/Relationship Status Dates Dr. Dallas Reed MD Primary care physician Activ e Start: April 30, 2025 End: April 30, 2025 Dr. Dustin Hawk MD Attending physician Active Start: April 30, 2025 End: April 30, 2025 Dr. Dustin Hawk MD Referring Provider Active S tart: April 30, 2025 End: April 30, 2025 Team Status: Inactive Member Role/Relationship Status Dates Dr. Dallas Reed MD Primary care physician Activ e Start: May 10, 2025 End: May 10, 2025 Dr. Dallas Reed MD Referring Provider Active Start: May 10, 2025 End: May 10, 2025 Mike Jay ACID PURIFIER, ACID PURIFIER-C Attending physician Active Start: May 10, 2025 End: May 10, 2025 Team Status: Inactive Member Role/Relationship Status Dates Dr. Dallas Reed MD Primary care physician Activ e Start: May 10, 2025 End: May 10, 2025 Mike Jay ACID PURIFIER, ACID PURIFIER-C Attending physician Active Start: May 10, 2025 End: May 10, 2025 Mike Jay ACID PURIFIER, ACID PURIFIER-C Referring Provider Active S tart: May 10, 2025 End: May 10, 2025 Team Status: Inactive Member Role/Relationship Status Dates Dr. Dallas Reed MD Primary care physician Activ e Start: May 21, 2025 End: May 22, 2025 Dr. Veena Nelson , DO Emergency Departm ent Physician Active Start: May 21, 2025 End: May 22, 2025 Dr. Cameron Solares , DO Admitting physician Active Start: May 21, 2025 End: May 22, 2025 Dr. Cameron Solares , DO Nurse Practitioner Active Start: May 21, 2025 End: May 22, 2025 Dr. Emily Horner MD Nurse Practitioner Active St art: May 21, 2025 End: May 22, 2025 Dr. Tamera Jorgensen MD Nurse Practitioner Active S tart: May 21, 2025 End: May 22, 2025 Dr. Marcel Cordova MD Nurse Practitioner Active S tart: May 21, 2025 End: May 22, 2025 Dr. Randy Soler MD Nurse Practitioner Active Start: May 21, 2025 End: May 22, 2025 Dr. Jaciel Bahena MD Nurse Practitioner Active Start: May 21, 2025 End: May 22, 2025 Dr. Dedrick Zamarripa MD Nurse Practitioner Active Start: May 21, 2025 End: May 22, 2025 Dr. Gilmar Mueller MD Nurse Practitioner Active Start: May 21, 2025 End: May 22, 2025 Dr. Donato Longoria MD Nurse Practitioner Active S tart: May 21, 2025 End: May 22, 2025 Dr. Cameron Leiva DO Nurse Practitioner Active Start: May 21, 2025 End: May 22, 2025 Dr. Lorraine Mcdowell MD Nurse Practitioner Active Start: May 21, 2025 End: May 22, 2025 Dr. Alexandru Laughlin MD Nurse Practitioner Active Start: May 21, 2025 End: May 22, 2025 Dr. Beronica Turcios MD Nurse Practitioner Active Start: May End: May 22, 2025 Dr. Elisha Eason MD Nurse Practitioner Active S tart: May 21, 2025 End: May 22, 2025 Dr. Jm Wilson MD Nurse Practitioner Active Start: May 21, 2025 End: May 22, 2025 Dr. Sinan Toro MD Nurse Practitioner Active Start: May 21, 2025 End: May 22, 2025 Mike Jay ACID PURIFIER, ACID PURIFIER-C Nurse Practitioner Active S tart: May 21, 2025 End: May 22, 2025 Kylah Arias PA, PA Nurse Practitioner Active Start: May End: May 22, 2025 CHRIS Murrell Nurse Practitioner Active St art: May 21, 2025 End: May 22, 2025 Dr. Olamide Morales MD Attending physician Active Start: May 21, 2025 End: May 22, 2025 Dr. Gricel Donald MD Nurse Practitioner Active Start: May 21, 2025 End: May 22, 2025 Team Status: Active Member Role/Relationship Status Dates Dr. Dallas Reed MD Primary care physician Activ e Start: May 21, 2025 Dr. Veena Nelson , DO Emergency Departm ent Physician Active Start: May 21, 2025 Dr. Cameron Solares , DO Admitting physician Active Start: May 21, 2025 Dr. Cameron Solares , DO Nurse Practitioner Active Start: May 21, 2025 Dr. Emily Horner MD Nurse Practitioner Active St art: May 21, 2025 Dr. Tamera Jorgensen MD Nurse Practitioner Active S tart: May 21, 2025 Dr. Marcel Cordova MD Nurse Practitioner Active S tart: May 21, 2025 Dr. Randy Soler MD Nurse Practitioner Active Start: May 21, 2025 Dr. Jaciel Bahena MD Nurse Practitioner Active Start: May 21, 2025 Dr. Dedrick Zamarripa MD Nurse Practitioner Active Start: May 21, 2025 Dr. Gilmar Mueller MD Nurse Practitioner Active Start: May 21, 2025 Dr. Donato Longoria MD Nurse Practitioner Active S tart: May 21, 2025 Dr. Cameron Leiva , Nurse Practitioner Active Start: May 21, 2025 Dr. Lorraine Mcdowell MD Attending physician Active Start: May 21, 2025 Dr. Lorraine Mcdowell MD Nurse Practitioner Active Start: May 21, 2025 Dr. Alexandru Laughlin MD Nurse Practitioner Active Start: May 21, 2025 Dr. Beronica Turcios MD Nurse Practitioner Active Start: May Dr. Elisha Easno MD Nurse Practitioner Active S tart: May 21, 2025 Dr. Jm Wilson MD Nurse Practitioner Active Start: May 21, 2025 Dr. Sinan Toro MD Nurse Practitioner Active Start: May 21, 2025 Mike Jay ACID PURIFIER, ACID PURIFIER-C Nurse Practitioner Active S tart: May 21, 2025 Kylah Arias PA, PA Nurse Practitioner Active Start: May CHRIS Murrell Nurse Practitioner Active St art: May 21, 2025 Dr. Olamide Morales MD Nurse Practitioner Active Start: May 21, 2025 Team Status: Active Member Role/Relationship Status Dates Dr. Dallas Reed MD Primary care physician Activ e Start: May 22, 2025 Dr. Veena Nelson , DO Emergency Departm ent Physician Active Start: May 22, 2025 Dr. Cameron Solares , DO Admitting physician Active Start: May 22, 2025 Dr. Cameron Solares , DO Nurse Practitioner Active Start: May 22, 2025 Dr. Emily Horner MD Nurse Practitioner Active St art: May 22, 2025 Dr. Tamera Jorgensen MD Nurse Practitioner Active S tart: May 22, 2025 Dr. Marcel Cordova MD Nurse Practitioner Active S tart: May 22, 2025 Dr. Randy Soler MD Nurse Practitioner Active Start: May 22, 2025 Dr. Jaciel Bahena MD Nurse Practitioner Active Start: May 22, 2025 Dr. Dedrick Zamarripa MD Nurse Practitioner Active Start: May 22, 2025 Dr. Gilmar Mueller MD Nurse Practitioner Active Start: May 22, 2025 Dr. Donato Longoria MD Nurse Practitioner Active S tart: May 22, 2025 Dr. Cameron Leiva , DO Nurse Practitioner Active Start: May 22, 2025 Dr. Lorraine Mcdowell MD Nurse Practitioner Active Start: May 22, 2025 Dr. Alexandru Laughlin MD Nurse Practitioner Active Start: May 22, 2025 Dr. Beronica Turcios MD Nurse Practitioner Active Start: May Dr. Elisha Eason MD Nurse Practitioner Active S tart: May 22, 2025 Dr. Jm Wilson MD Nurse Practitioner Active Start: May 22, 2025 Dr. Sinan Toro MD Nurse Practitioner Active Start: May 22, 2025 Mike Jay ACID PURIFIER, ACID PURIFIER-C Nurse Practitioner Active S tart: May 22, 2025 Kylah Arias PA, PA Nurse Practitioner Active Start: May CHRIS Murrell Nurse Practitioner Active St art: May 22, 2025 Dr. Olamide Morales MD Attending physician Active Start: May 22, 2025 Dr. Olamide Morales MD Nurse Practitioner Active Start: May 22, 2025 Dr. Gricel Donald MD Nurse Practitioner Active Start: May 22, 2025 Team Status: Active Member Role/Relationship Status Dates Dr. Dallas Reed MD Primary care physician Activ e Start: May 22, 2025 Dr. Veena Nelson , DO Emergency Departm ent Physician Active Start: May 22, 2025 Dr. Cameron Solares , DO Admitting physician Active Start: May 22, 2025 Dr. Cameron Solares , DO Nurse Practitioner Active Start: May 22, 2025 Dr. Emily Horner MD Nurse Practitioner Active St art: May 22, 2025 Dr. Tamera Jorgensen MD Nurse Practitioner Active S tart: May 22, 2025 Dr. Marcel Cordova MD Nurse Practitioner Active S tart: May 22, 2025 Dr. Randy Soler MD Nurse Practitioner Active Start: May 22, 2025 Dr. Jaciel Bahena MD Nurse Practitioner Active Start: May 22, 2025 Dr. Dedrick Zamarripa MD Nurse Practitioner Active Start: May 22, 2025 Dr. Gilmar Mueller MD Nurse Practitioner Active Start: May 22, 2025 Dr. Donato Longoria MD Nurse Practitioner Active S tart: May 22, 2025 Dr. Cameron Leiva , DO Nurse Practitioner Active Start: May 22, 2025 Dr. Lorraine Mcdowell MD Nurse Practitioner Active Start: May 22, 2025 Dr. Alexandru Laughlin MD Attending physician Active Start: May 22, 2025 Dr. Alexandru Laughlin MD Nurse Practitioner Active Start: May 22, 2025 Dr. Beronica Turcios MD Nurse Practitioner Active Start: May Dr. Elisha Eason MD Nurse Practitioner Active S tart: May 22, 2025 Dr. Jm Wilson MD Nurse Practitioner Active Start: May 22, 2025 Dr. Sinan Toro MD Nurse Practitioner Active Start: May 22, 2025 Mike Jay ACID PURIFIER, ACID PURIFIER-C Nurse Practitioner Active S tart: May 22, 2025 Kylah Arias PA, PA Nurse Practitioner Active Start: May CHRIS Murrell Nurse Practitioner Active St art: May 22, 2025 Dr. Olamide Morales MD Nurse Practitioner Active Start: May 22, 2025 Dr. Gricel Donald MD Nurse Practitioner Active Start: May 22, 2025 Team Status: Inactive Member Role/Relationship Status Dates Dr. Dallas Reed MD Primary care physician Activ e Start: June 05, 2025 End: June 05, 2025 Dr. Dallas Reed MD Referring Provider Active Start: June 05, 2025 End: June 05, 2025 Mike Jay ACID PURIFIER, ACID PURIFIER-C Attending physician Active Start: June 05, 2025 End: June 05, 2025 Team Status: Inactive Member Role/Relationship Status Dates Dr. Dallas Reed MD Primary care physician Activ e Start: June 05, 2025 End: June 05, 2025 Mike Jay ACID PURIFIER, ACID PURIFIER-C Attending physician Active Start: June 05, 2025 End: June 05, 2025 Mike Jay NP ACID PURIFIER-C Referring Provider Active S tart: June 05, 2025 End: June 05, 2025 Goals (unrecognized section and content) Goals [...] BE BASED ON THE PRIMARY CLINICAL RECORDS. [facility]. provides no warranty or guarantee of the accuracy or completeness of information in this document.
[2025-06-23 19:39] LABS: Hematocrit 30.7 % (40-54); Hemoglobin 10.4 g/dL (13.0-16.5); Immature Granulocytes Count 0.020 X10^3/uL (0.0-0.0); Mean Corp Hgb Conc 33.9 g/dL (32-36); Mean Corpuscular Volume 89.5 fL (80-94); Mean Platelet Vol. 10.5 fl (6.2-12.0); NRBC Flagged by Analyzer 0 % (0-5); Platelet Count 100 K/mm3 (150-450); RBC Distribution Width CV 15.2 % (11.6-14.6); RBC Distribution Width SD 49.8 fl (35.1-43.9); Red Blood Count 3.43 M/mm3 (4.6-6.2); White Blood Count 5.8 K/mm3 (4.4-11.0)
--- NOTE | 2025-06-23 20:15 | RAD_ITS ---
PROCEDURE: CHEST 1 VIEW (PORTABLE) 06/23/2025 REASON FOR EXAM: CHEST PAIN TECHNIQUE: Frontal view of the chest. COMPARISON: 05/22/2025 FINDINGS: Hardware: EKG leads overlie the chest Heart: Cardiac and mediastinal contours are stable. Lungs: Chronic interstitial changes in both lung guy without significant change since the previous study Bones: Bony structures show degenerative RAD/Chest 1 View (Portable) IMPRESSION: Chronic interstitial changes in both lung guy without significant change sin ce the previous study Reading Location: [id number]
[2025-06-23 20:17] LABS: Anion Gap 13 (5-15); BUN 45 mg/dL (4-19); BUN/Creat Ratio 28.2 RATIO (10-20); Calcium,Total 9.4 mg/dL (7.6-11.0); Carbon Dioxide 21.2 mmol/L (21.0-32.0); Chloride 105 mmol/L (98-108); Estimated Creatinine Clearance 30.26 ml/min (50-250); Glucose 90 mg/dL (70-99); Potassium 4.0 mmol/L (3.3-5.1)
[2025-06-23 20:49] LABS: Troponin T High Sensitivity 948 ng/L (<=22)
--- NOTE | 2025-06-23 21:08 | HP.PCM.HOS_ITS ---
HPI - General General Date of Admission: 06/23/25 Date of Service: 06/23/25 Chief Complaint: Palpitations, chest pain. HPI Narrative The patient is an 85 y/o M w/ PMHx: CKD stage III unclear subtype per GFR trending, Chronic normocytic anemia/iron deficiency anemia, Hypothyroidism, HTN, HLD, HFpEF, AAA s/p repair, Carotid disease, Former tobacco use, Hx TIA, PAF/Flutter who presents to the [facility] ED on 07/14 with history of onset over the last 24 hours intermittent episodes of palpitations with some chest discomfort of the left side of the chest described as throbbing/aching rating 10 out of 10 in severity with palpitation/racing heart sensation however no nausea, emesis dyspnea or diaphoresis with recent discharge 05/22/2025 following evaluation and treatment of PAF with RVR, acute heart failure exacerbation with chest pain with elevated cardiac enzymes in the setting of acute kidney injury on CKD with cardiac troponin eventually rising greater than 600 placed on a heparin drip and nitro drip during that presentation with plan follow-up outpatient pending repeat assessment of renal function for future cardiac catheterization. He reports that this first started the day prior when he was actually out of state visiting her granddaughter and he did not want to seek medical care out of state therefore waited until he came back to [place] for evaluation. He notes that when it first started it was ongoing and persistent for several hours starting in the evening. Workup in the ED included T97, heart 44 initially, BP 144 105, respiratory rate 16, 99% on room air with most recent repeat vitals heart rate 87, BP 148/74, respiratory rate 25, 94% on room air, CBC with WBC 5.8, Hgb10.4, MCV 89.5, platelet 100 with lymphopenia, BMP with BUN/Cryan 45/1.58, GFR 43, initial troponin 948, TSH 5.640, chest x-ray with borderline cardiomegaly with no acute cardiopulmonary findings but awaiting final read per radiology upon evaluation patient, EKG with sinus rhythm with no acute evidence of ischemia unchanged from previous. Discussed patient case with ED physician requested heparin drip initiated. [facility] Medical History Elevated TSH [place] (acute kidney injury) Acute exacerbation of chronic heart failure Non-ST elevation [place] (NSTEMI) New onset atrial flutter Type II endoleak of aortic graft Chronic renal failure, stage 3 (moderate) Spigelian hernia Wears hearing aid Wears glasses History of steroid therapy Arthritis History of renal disease TIA (transient ischemic attack) Ataxia History of echocardiogram Easy bruising History of IBS Former smoker History of stress test Cardiology follow-up encounter History of irregular heartbeat Preop cardiovascular exam Stenosis of right internal carotid artery Abdominal aortic 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 Essential hypertension Lumbar disc disease 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 Hyperlipidemia Diverticulosis Pre-operative cardiovascular examination Anemia 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, NYHA class 2 RSV (respiratory syncytial virus pneumonia) Shortness of breath Cough productive of purulent sputum Home Medications ?Medication ?Instructions ?Recorded ?Last Taken ?Type multivitamin 1 tab PO DAILY supplement 05/21/24 History ascorbic acid (vitamin C) 500 mg 1,000 mg PO DAILY sup plement 02/14/20 05/23/24 History capsule doxazosin 8 mg tablet 8 mg PO QHS prostate 4 01/10/25 History hydralazine 100 mg tablet 100 mg PO TID blood pressure 05/23/24 02/14/25 History magnesium oxide 400 mg (241.3 mg 400 mg PO DAILY suppl ement 05/23/24 05/21/24 History magnesium) tablet bempedoic acid 180 mg tablet 180 mg PO DAILY 07/11/24 01/12/25 History (Nexletol) ezetimibe 10 mg tablet 10 mg PO DAILY 07/11/2401/19 History levothyroxine 25 mcg tablet 25 mcg PO DAILY 11/28/24 0 02/14/25 History cholecalciferol (vitamin D3) 125 125 mcg PO DAILY angel min 01/12/25 Unknown History mcg (5,000 unit) tablet (Vitamin D3) ferrous sulfate 325 mg (65 mg 325 mg PO DAILY iron rep lacement 01/12/25 01/12/25 History iron) tablet (Feosol) nifedipine 60 mg tablet,extended 60 mg PO DAILY blood pressure 01/12/25 02/14/25 History release carvedilol 6.25 mg tablet 6.25 mg PO BID 05/21/25 Unkn own History furosemide 20 mg tablet 20 mg PO DAILY 05/21/25 Unkn own History losartan 50 mg tablet 50 mg PO QDAY 06/05/25 Unkno wn History aspirin 81 mg chewable tablet 81 mg PO ONCE #90 tabs 0 06/07/25 Unknown Rx Allergy/AdvReac Type Severity Reaction Status Date / Time lisinopril Allergy Intermediate Rash Verified 06/23/25 18:32 atorvastatin calcium (From Allergy Other Verified 06/23/25 18:32 Lipitor) clonidine Allergy Unknown Verified 06/23/25 18:32 rosuvastatin calcium (From Allergy Other Verified 06/23/25 18:32 Crestor) Wmhznib-GZQ-EuI Reductase Allergy Other Verified 06/23/25 18:32 Inhibitor (Hqoberp-Iqt-Trp Reductase Inhibitor) Family History Father Lung cancer Liver cancer Mother Oral cancer Surgical History S/P spigelian hernia repair, follow-up exam S/P AAA repair (~02/2025) History of right-sided carotid endarterectomy Hx of cataract surgery Hx of appendectomy History of tonsillectomy History of back surgery History of colonoscopy History of blepharoplasty History of inguinal hernia repair History of umbilical hernia repair 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 Social History household members: spouse Smoking Status: Former smoker second hand exposure: No alcohol intake: never substance use type: does not use caffeine: Yes Type: coffee Number of servings: 2 ROS ROS Narrative Admission Review of Systems: CONSTITUTIONAL: No weight loss, fever, chills, + weakness or fatigue. HEENT: Eyes: No visual loss, blurred vision, double vision or yellow sclerae. Ears, Nose, Throat: No hearing loss, sneezing, congestion, runny nose or sore throat. SKIN: No rash or itching, lesions, wounds except + occasional stage ecchymoses, abrasions. CARDIOVASCULAR: + Chest pain, palpitations/racing heart. No edema, orthopnea, syncopal events. RESPIRATORY: No shortness of breath, cough or sputum, wheezing, hemoptysis. GASTROINTESTINAL: No anorexia, nausea, vomiting or diarrhea, abdominal pain, melena, BRBPR. GENITOURINARY: No dysuria, frequency, urgency or retention. NEUROLOGICAL: No headache, dizziness, syncope, paralysis, ataxia, numbness or tingling in the extremities, focal weakness, change in bowel or bladder control, seizure. MUSCULOSKELETAL: + muscle, back pain, joint pain or stiffness. HEMATOLOGIC: + Chronic anemia/easy bleeding/bruising. LYMPHATICS: No enlarged nodes. No history of splenectomy. PSYCHIATRIC: No history of depression or anxiety. ENDOCRINOLOGIC: No reports of sweating, cold or heat intolerance. No polyuria or polydipsia. ALLERGIES: No history of asthma, hives, eczema or rhinitis. Vital Signs Vital Signs Vital Signs: 06/23/25 18:32 06/23/25 18:35 06/23/25 19:13 Temperature 97 F L Temperature Source Temporal Pulse Rate 44 L 86 Respiratory Rate 16 Respiratory Effort Blood Pressure 140/105 H 143/98 H Blood Pressure Mean 116 113 Pulse Ox 99 95 Oxygen Delivery Method Room Air Room Air Room Air 06/23/25 19:15 06/23/25 19:35 06/23/25 20:00 Temperature Temperature Source Pulse Rate 89 87 Respiratory Rate 19 H 25 H Respiratory Effort Normal Non-Labored Blood Pressure 141/91 H 148/74 H Blood Pressure Mean 107 98 Pulse Ox 94 94 Oxygen Delivery Method Room Air Room Air Weight Weight: 138 lb Body Mass Index (BMI) 20.9 Physical Exam Narrative Physical Examination: General: Awake, alert, oriented x 3 and cooperative, seated upright in the ED bed, denies any current chest discomfort at this time. Skin: Normal color, normal turgor, no icterus, no cyanosis except occasional stage ecchymoses, abrasion HEENT: AT/NC, EOMI, PERRLA, mildly dry MM, no carotid bruits or JVD noted. Lungs: Mildly diminished, greater bases, mildly increased respiratory rate but no distress, no appreciated rales, ronchi or wheezing. Heart: Regular rate and rhythm; no gallop, rub audible. Abdomen: Soft, NTTP, ND, hyperactive BS, no appreciated HSM. Extremities: No cyanosis, no clubbing, no significant distal edema noted. Neurological: Patient awake, alert, oriented as noted, cognitive function intact; pupils equally reactive to light and accommodation, cranial nerves grossly normal, moving all 4 extremities, no focal deficits, strength moderately globally decreased Psychiatric: Affect appears fatigued otherwise normal, no acute evidence of depressive or anxiety feelings. Results Lab / Micro Data 06/23/25 19:25 06/23/25 19:25 Labs: Laboratory Results - last 24 hr 06/23/25 19:25: WBC 5.8, RBC 3.43 L, Hgb 10.4 L, Hct 30.7 L, MCV 89.5, MCH 30.3, MCHC 33.9, RDW Std Deviation 49.8 H, RDW Coeff of Erma 15.2 H, Plt Count 100 L, MPV 10.5, Immature Gran % (Auto) 0.300, Neut % (Auto) 76.2 H, Lymph % (Auto) 12.8 L, [place] % (Auto) 8.0, Eos % (Auto) 2.2, Baso % (Auto) 0.5, Absolute Neuts (auto) 4.4, Absolute Lymphs (auto) 0.74 L, Nucleated RBC % 0, Sodium 139, Potassium 4.0, Chloride 105, Carbon Dioxide 21.2, Anion Gap 13, BUN 45 H, C reatinine 1.58 H, Estim Creat Clear Calc 30.26 L, Est GFR (MDRD) Non-Af 43 L, B UN/Creatinine Ratio 28.2 H, Glucose 90, Calcium 9.4, Troponin T High Sens 948 H* D, TSH 5.640 H Rhythm Strip Rhythm Strip: Sinus Rhythm Rate: 91 Ectopy: None Assessment & Plan Assessment/Plan (1) Non-ST elevated myocardial infarction: PLAN: Plan The patient is an 85 y/o M w/ PMHx: CKD stage III unclear subtype per GFR trending, Chronic normocytic anemia/iron deficiency anemia, Hypothyroidism, HTN, HLD, HFpEF, AAA s/p repair, Carotid disease, Former tobacco use, Hx TIA, PAF/Flutter who presents to the [facility] ED on 07/14 with history of onset over the last 24 hours intermittent episodes of palpitations with some mild chest discomfort associated on aspirin therapy with no dyspnea or diaphoresis with recent discharge 05/22/2025 following evaluation and treatment of PAF with RVR, acute heart failure exacerbation with chest pain with elevated cardiac enzymes in the setting of acute kidney injury on CKD with cardiac troponin eventually rising greater than 600 placed on a heparin drip and nitro drip during that presentation with plan follow-up outpatient pending repeat assessment of renal function for future cardiac catheterization. #1. Chest Pain w/ Acute NSTEMI: EKG in ED w/ sinus rhythm with no acute evidence of ischemia, CXR w/ cardiomegaly with no significant cardiopulmonary findings otherwise. Trop elevated, 948. Will admit to PCU, maintain on a monitored bed, continue serial cardiac enzymes and EKGs. Obtain magnesium level upon admission. Will continue heparin drip. Continue medical management. Patient with recent echocardiogram 05/21/2025 however given current presentation with NSTEMI will request repeat limited. Will judiciously hydrate for plan of cardiac catheterization. Cardiology consulted. Maintain NPO after midnight. ASA, NG, morphine. #2. Abnormal TSH with hypothyroidism: Admission TSH 5.640, will also obtain free T4, continue levothyroxine regimen and adjust as needed pending workup. #3. HFpEF: Most recent echocardiogram reported 05/21/2025 with recent admission with EF 40 to 45%, inferior hypokinesis EF, mild MR, in comparison to previous echocardiogram reduced LV systolic function with EF moderate, no evidence of any pericardial effusion. Will continue aspirin, not on statin therapy as noted, continue acetaminophen and Nexletol, Coreg, hydralazine, Lasix, losartan home regimen. Judiciously hydrating and preparation for cardiac catheterization. #4. AAA: Status post repair 2024, most recent CT scan reported with transverse aortic aneurysm measuring 6.1 cm, mural thrombus, endoluminal stents, stable endoluminal leak type II with no evidence of any hematoma at that time and unchanged from previous study, encourage continued follow-up with vascular surgery as previously arranged. #5. Carotid disease: Status post right sided carotid endarterectomy, encourage continued follow-up with vascular surgery as previously arranged. #6. Chronic thrombocytopenia, unclear etiology: Admission platelets 100, baseline appears 80-100, stable, continue to trend, judicious use of heparin as noted. #7. PAF/flutter: Most recent echocardiogram as noted above, Will continue patient on Coreg regimen, per current list does not appear to be chronically anticoagulated, possibly secondary falls but unclear. #8. Chronic normocytic anemia/iron deficiency anemia: Admission hemoglobin 10.4, MCV 89.5, baseline hemoglobin primarily 10-11, stable, continue to trend, continue iron supplementation. #9. Hypertension: Continue home regimen including nifedipine, losartan, hydralazine, Lasix, Coreg with hold parameters as needed, PRN hydralazine. #10. Hyperlipidemia: Per current list does not appear to be on statin, continue home ezetimibe and Nexletol regimen, FLP in AM. #11. Chronic Kidney Disease Stage III, unclear subtype or GFR trending: Admission BUN/Cr 45/1.58, GFR 43, baseline renal function primarily 1.5-1.8, repeat BMP in AM. #12. History of TIA: Will continue patient aspirin, not on statin therapy as noted, continue hypertensive regimen, no diabetic history per report. #13. Former tobacco use: Encourage continued tobacco cessation. #14. DVT prophylaxis: Continue heparin drip. #15. CODE status: Patient JOSH is his and living will is currently in place. Discussed CODE status at length including difference between FULL code, DNR-CCA and DNR-CC status. Following discussions about the differences in these status, requested Full Code status. Advanced Care Planning Face to Face Time: 16 minutes. Charges/Coding Visit Charges Inpatient E&M: 29528 Init Hosp L3 Procedures Hospitalists Procedures: 07888 Advncd Care Plan 30 Min
--- NOTE | 2025-06-23 21:12 | EKG12_ITS ---
Test Reason : CP ADMISSION Blood Pressure : */* mmHG Vent. Rate : 98 BPM Atrial Rate : 98 BPM P-R Int : 168 ms QRS Dur : 90 ms QT Int : 428 ms P-R-T Axes : 89 69 -24 degrees QTcB Int : 546 ms Sinus rhythm with frequent and consecutive Premature ventricular complexes Left ventricular hypertrophy with repolarization abnormality ( Sokolow-Lindsay , Ottosen product , Romhilt-Noguera ) Prolonged QT Abnormal ECG When compared with ECG of 23-Jun-2025 18:43, MANUAL COMPARISON REQUIRED DATA IS UNCONFIRMED Confirmed by ISAIAH LAWTON, AMADOU ([id number]), manuscript editor TORIE MUKHERJEE ([id number]) on 06/25/2025 8:43:11 AM Referred By: [email or web address] Confirmed By: AMADOU COLON MD
--- OUTSIDE RECORDS SUMMARY | 2025-06-23 21:27 | XMS RPT_ITS | CCD ---
Author Organization [facility] Care Team Providers Care Remote Broadcast Engineer Name Role Phone SIMON MOODY Unavailable Unavailable [...] Provider Dallas Reed MD Primary Care Provider eDnver Elizalde RN Unavailable Dr. Dallas Doherty Primary [...] Maxime LAWTON, Dallas Tadeo Primary Care Provider [facility] LACQUER COATER.ROLLS MILL OPERATOR, Darya M Unavailable Brodman [facility], Yessenia Unavailable Christopher MENJIVAR, Adriane [...] Maxime LAWTON, Dr. Haynes Referring Provider Roof INSERTER-C, Mike H Attending Provider Maxime LAWTON, Dr. Haynes Primary Care Provider Roof INSERTER-C, Mike H Referring Provider Maxime LAWTON, Dr. [...] Muna LAWTON, Dr. Menon Other Provider Pierre INSERTER-C, Mike Tadeo Other Provider Kylah Ramirez Other [...] Referring Unavailable REED, JOCELIN Primary Care Unavailable SARIA, DARYA M Attending Unavailable REED, JOCELIN Primary Care Unavailable REED, JOCELIN Primary Care Unavailable REED, JOCELIN Referring Unavailable RMAON LEE Attending Unavailable FATOU RANDOLPH Admitting Unavailable [...] Physician Dr. Dustin Hawk MD Attending Physician [phone] Dr. Dustin Hawk MD Referring Provider Pierre INSERTER-C, Mike Tadeo Attending Physician Dr. Veena Nelson [...] Carmen LAWTON, Dr. Olamide White Attending Physician [phone] Odilon LAWTON, Dr. Monsalve Nurse Practitioner July [...] Samer Consulting Unavailable Satmarlo Jm Consulting Unavailable Swisher, Sinan Consulting Unavailable Roof INSERTER, Mike Tadeo Consulting Unavailable Kylah Arias Consulting UnavailJohn Castilloyler Consulting Unavailable Cameron Solares Consulting Unavailable Olamide Morales Consulting Unavailable Robotham, Lara Attending Unavailable Robotham, Lara Consulting Unavailable Robotham, Lara Referring Unavailable Reed, Dallas Primary Care Unavailable Roof INSERTER, Mike Tadeo Attending Unavailable Reed, Dallas Primary Care Unavailable Reed, Dallas Referring Unavailable Reed, Dallas Referring Unavailable Reed, Dallas Primary Care Unavailable Noble, Carine Attending Unavailable Reed, Dallas Primary Care Unavailable King, Hernandez Attending Unavailable Noble, Carine Referring Unavailable Noble, Carine Attending Unavailable Reed, Dallas Primary Care Unavailable Waldo, Dustin Attending Unavailable Reed, Dallas Primary Care Unavailable [place], Dustin Referring Unavailable Alexandru Laughlin Attending Unavailable Gricel Donald Consulting Unavailable Koram, Olamide Cindy Attending Unavailable Reed, Dallas Referring Unavailable Reed, Dallas Primary Care Unavailable [place], Dustin Attending Unavailable Noble, Carine Attending Unavailable Reed, Dallas Referring Unavailable Reed, Dallas Primary Care Unavailable Roof INSERTER, Mike Tadeo Attending Unavailable Reed, Dallas Primary Care Unavailable Roof INSERTER, Mike Tadeo Referring Unavailable Reed, Dallas Primary Care Unavailable Nate Gray Attending Unavailable Reed, Dallas Primary Care Unavailable Waldo, Dustin Referring Unavailable [place], Dustin Attending Unavailable Roof INSERTER, Mike H Referring Unavailable Roof INSERTER, Mike Tadeo Attending Unavailable Reed, Dallas Primary [...] Sameheather Consulting Unavailable SatElsa sellersJm Consulting Unavailable Swisher, Sinan Consulting Unavailable Roof INSERTER, Mike Tadeo Consulting Unavailable Kylah Arias Consulting Unavailдмитрий e Demiter, Jeremy Consulting Unavailable Cameron Solares Consulting Unavailable OdilonRobyn woodys Consulting Unavailable Robotham, Lara Attending Unavailable Reed, Dallas Primary Care Unavailable Robotham, Lara Referring Unavailable Robotham, Lara Attending Unavailable Reed, Dallas Primary Care Unavailable Reed, Dallas Referring Unavailable Roof INSERTER, Mike Tadeo Attending Unavailable Reed, Dallas Referring Unavailable Reed, Dallas Primary Care Unavailable Von, Donato Referring Unavailable Von, Bronson Attending Unavailable Reed, Dallas Primary Care Unavailable Reed, Dallas Primary Care Unavailable Veena Nelson Attending Unavailable Robotham, Lara Attending Unavailable Reed, Dallas Primary Care Unavailable Reed, Dallas Referring Unavailable [place], Dustin Attending Unavailable Reed, Dallas Primary Care Unavailable Reed, Dallas Referring Unavailable Robotham, Lara Referring Unavailable Robotham, Lara Attending Unavailable Robotham, Lara Consulting Unavailable Reed, Dallas Primary Care Unavailable [place], Dustin Attending Unavailable Reed, Dallas Primary Care Unavailable [place], Dustin Referring Unavailable Waldo, Udstin Consulting Unavailable Cameron Solares Attending Unavailable Allergies Allergy Classification Reported Allergen(s) Allergy Type Date of Onset Reaction(s) Facility (20 sources) atorvastatin; Translations: [ATORVASTATIN CALCIUM] Drug Allergy 5 Other [facility] Repository Comment on above: muscle pain (20 sources) cloNIDine; Translations: [CLONIDINE] Drug Allergy 5 Unknown [facility] Repository (20 sources) Hmg-Coa Reductase Inhibitors (Statins); Translations: [WLBNNKV-PKF-EBG REDUCTASE INHIBITORS] Propensity to adverse reactions (disorder) 6 [facility] Repository (20 sources) lisinopril; Translations: [LISINOPRIL] Drug Allergy 7 Rash [facility] Repository (20 sources) rosuvastatin; Translations: [ROSUVASTATIN CALCIUM] Drug Allergy 5 Other [facility] Repository Comment on above: muscle pain (1 source) atorvastatin Drug Allergy 9 [place] (19 sources) Hmg-Coa Reductase Inhibitors (Statins) Propensity to adverse reactions to drug 9 Other [place] Comment on above: MUSCLE VERY SORE (1 source) rosuvastatin Drug Allergy 9 [place] (2 sources) Emejdbu-Var-Nhl Reductase Inhibitor; Translations: [Gigfbdv-Var-Tqj Reductase Inhibitor] Allergy to substance 2 Other [facility] Repository (20 sources) NIFEdipine; Translations: [NIFEDIPINE] Drug Allergy 5 Swelling [facility] Work Phone: (4 sources) HMG-CoA reductase inhibitor Propensity to adverse reactions 5 [facility] Medications Current Medications Medication Drug Class(es) Dates [...] daily at bedtime. [facility]. ezetimibe 10 mg oral [...] on above: Take 1 capsule by mo [facility] once daily. glucosamine/chondr rich A sod (OSTEO [...] Comment on above: Take 2 tablets by [facility] once daily. hydrALAZINE hydrochloride 100 mg oral tablet (20 sources) Arteriolar Vasodilator Start: 09-24-2023 End: 12-11-2024 take 1 tablet by mouth three times daily Start: 03-04-2023 take [facility] daily hydrALAZINE (APRESOLINE) 100 mg [...] 90 tablet 12/02/2024 12/02/2024 Discontinued (Side Effects) [place]-3 Fatty Acids (FISH OI L PO) (1 source) [place]-3 Fatty Ac ids (FISH OIL PO) Take [...] extract (20 sources) take 1 capsule by [facility] once daily TURMERIC ORAL Take 1 capsule [...] B12, Vitamin D Start: 07-26-2015 End: 01-10-2024 [id number]-FA-B -6-phy 500-1,000-500 mg-unit-mcg cap Take by mouth. 07/26/2015 01/10/2024 Discontinued (Discontinued by Patient) Start: 07-26-2015 End: 05-23-2024 take 1 capsule by mouth once daily [id number]-P-2-Qho 1 EACH ca psule Discontinued 1 NMA PO DAILY July 26, 2015 1:00am May 23, 2024 8:01pm supplement On Hold: Resume on 04/21/23. Start: 07-26-2015 Qa-2-[id number]-Epa-D [id number]-C-8-Kmq Active 1 EACH PO DAILY July 26, [...] Comment on above: Take 1 tablet by [facility] twice daily. For cholesterol. COMPOUNDED PRESCRIPTION (20 sources) End: 01-10-20 24 take 1 capsule by mouth once daily COMPOUNDED PRESCRIPTION Take 1 capsule by mouth once daily. [place] Q Plus 01/10/2024 Discontinued (Discontinued by Patient) End: 01-10-2024 take 1 capsule by mouth once daily COMPOUNDED PRESCRIPTION Take 1 capsule by mouth once daily. [place] Q Plus 0 01/10/2024 Discontinued (Discontinued by Patient) take 1 capsule by [facility] once daily COMPOUNDED PRESCRIPTION Take 1 capsule by mouth once daily. [place] Q Plus 0 Active Comment on above: Take 1 capsule by [facility] once daily. [place] Q Plus diazePAM 2 mg oral tablet [...] (FLONASE) 50 mcg/actuation nasal spray Use 1 Carrie in each nostril daily at bedtime. 1 [...] 2019 1:35pm 0.5 ml heparin sodium, porcine 38756 unt/ml prefilled syringe (2 sources) Unfractionated Heparin, [...] sources) Anticholinergic Start: 01-08-2018 End: 05-17-2019 Ipratropium [place] 0.03 % spray,non-aerosol Discontinued 2 NMA INTRANASAL 2 to 3 times per day as needed January 08, 2018 12:00am May 17, 2019 1:35pm Start: 01-08-2018 End: 05-17-2019 Ipratropium [place] Disconti nued 2 SPRAY INTRANASAL 2 to [...] 10-20 mcg/min and titrate per order parameters. [place]-3 1,050 mg, Fish Oil, 1,050-1,200 mg cap (10 sources) [place]-3 1,050 mg , Fish Oil, 1,050-1,200 mg [...] APPLY TO AFFECTED AREA polyethylene glycol 3350 41845 mg powder for oral solution (12 sources) Osmotic Laxative Start: 2023 End: 2023 Polyethylene Glycol 3350 (Miralax) 17 gram/dose powder Discontinued 17 g PO DAILY 238 0 July 11, 2024 12:00am August 11, 2024 1:22pm polyethylene glycol 3350 626512 mg / potassium chloride 2970 mg / sodium bicarbonate 6740 mg / sodium chloride 5860 mg / sodium sulfate 38917 mg powder for oral solution (1 source) [...] Reference Range Facility CNOVon 06-11-2025 CNOV Normal [facility] CNPTOUTREACHon 06-07-2025 CNPTOUTREACH Normal [facility] Absolute lymphocyte countOrd ered By: Mike Jay on 06-05-2025 Lymphocytes Auto (Unsp spec) [#/Vol] 0.81 10*3/uL Low 0.83-4.51 [facility] Absolute neutrophil countOrd ered By: Mike Jay on 06-05-2025 Neutrophils (Bld) [#/Vol] 3.1 10*3/uL 2.0-7.7 [facility] Anion gap in Serum or Plasma Ordered By: Mike Jay on 06-05-2025 Anion gap [Moles/Vol] 12 mmol/L 5-15 [facility] Automated lymphocyte count a s percentage of total leukocytesOrdered By: Mike Jay on 06-05-2025 Lymphocytes/100 WBC Auto (Unsp spec) 18.2 % Low 19-41 [facility] BUN/creatinine ratioOrdered By: Mike Jay on 06-05-2025 Urea nitrogen/Creatinine [Mass ratio] 23.6 mg/mg High 10-20 [facility] Basic Metabolic Profile (BMP )on 06-05-2025 BUN/CRE 23.6 RATIO High 10- [facility] Comment on above: Performed By: #### L [id number], L506.0400, L500.2500, L100.0100 ####[facility] [address] [place], [address] Calcium [Mass/Vol] 9.4 mg/dL Normal 7.6-11.0 [facility] Comment on above: Performed By: #### L [id number], L506.0400, L500.2500, L100.0100 ####[facility] [address] [place], [address] Chloride [Moles/Vol] 106 mmol/L Normal 98-108 [facility] Comment on above: Performed By: #### L [id number], L506.0400, L500.2500, L100.0100 ####[facility] [address] [place], [address] CO2 [Moles/Vol] 24.3 mmol/L Normal 21.0-32.0 [facility] Comment on above: Performed By: #### L [id number], L506.0400, L500.2500, L100.0100 ####[facility] [address] [place], [address] Creatinine [Mass/Vol] 1.69 mg/dL High 0.70-1.20 [facility] Comment on above: Performed By: #### L [id number], L506.0400, L500.2500, L100.0100 ####[facility] [address] [place], [address] GAP 12 Normal 5-15 [facility] Comment on above: Performed By: #### L [id number], L506.0400, L500.2500, L100.0100 ####[facility] [address] [place], [address] GFR/1.73 sq M.predicted among non-blacks MDRD (S/P/Bld) [Vol rate/Area] 39 mL/min/{1.73_m2} Low >60 [facility] Comment on above: Result Comment: mL/m in/1.73m2 CKD-EPI Creatinine Equation (2020) Performed By: #### L 501.9520, L506.0400, L500.2500, L100.0100 ####[facility] [address] [place], [address] Glucose [Mass/Vol] 110 mg/dL High 70-99 [facility] Comment on above: Performed By: #### L 501.9520, L506.0400, L500.2500, L100.0100 ####[facility] [address] [place], [address] Potassium [Moles/Vol] 4.5 mmol/L Normal 3.3-5.1 [facility] Comment on above: Performed By: #### L 501.9520, L506.0400, L500.2500, L100.0100 ####[facility] [address] [place], [address] Sodium [Moles/Vol] 142 mmol/L Normal 133-145 [facility] Comment on above: Performed By: #### L 501.9520, L506.0400, L500.2500, L100.0100 ####[facility] [address] [place], [address] Urea nitrogen [Mass/Vol] 40 mg/dL High 4-19 [facility] Comment on above: Performed By: #### L 501.9520, L506.0400, L500.2500, L100.0100 ####[facility] [address] [place], [address] Basophil percentageOrdered B y: Mike [facility] on 06-05-2025 Basophils/100 WBC (Bld) 0.7 % 0-1 [facility] CBC W/Diff, Automatedon 05-21 Absolute Lymph 0.81 X10 3/uL Low 0.83-4.51 [facility] Comment on above: Performed By: #### L 501.9520, L506.0400, L500.2500, L100.0100 ####[facility] [address] [place], [address] Absolute Neut 3.1 X10 3/uL Normal 2.0-7.7 [facility] Comment on above: Performed By: #### L 501.9520, L506.0400, L500.2500, L100.0100 ####[facility] [address] [place], [address] Basophils/100 WBC (Bld) 0.7 % Normal 0-1 [facility] Comment on above: Performed By: #### L 501.9520, L506.0400, L500.2500, L100.0100 ####[facility] [address] [place], [address] Eosinophils/100 WBC (Bld) 3.8 % Normal 0-5 [facility] Comment on above: Performed By: #### L 501.9520, L506.0400, L500.2500, L100.0100 ####[facility] [address] [place], [address] Erythrocyte distribution width (RBC) [Ratio] 15.3 % High 11.6-14.6 [facility] Comment on above: Performed By: #### L 501.9520, L506.0400, L500.2500, L100.0100 ####[facility] [address] [place], [address] Hematocrit (Bld) [Volume fraction] 31.2 % Low 40-54 [facility] Comment on above: Performed By: #### L 501.9520, L506.0400, L500.2500, L100.0100 ####[facility] [address] [place], [address] Hemoglobin (Bld) [Mass/Vol] 10.5 g/dL Low 13.0-16.5 [facility] Comment on above: Performed By: #### L 501.9520, L506.0400, L500.2500, L100.0100 ####[facility] [address] [place], [address] IG% 0.200 Normal 0.0-0.9 [facility] Comment on above: Result Comment: IG% - Immature Granulocytes (promyelocytes, myelocytes andmetamyelocytes) > 1% indicates that a LEFT SHIFT is Present. Performed By: #### L 501.9520, L506.0400, L500.2500, L100.0100 ####[facility] [address] [place], [address] Lymphocytes/100 WBC (Bld) 18.2 % Low 19-41 [facility] Comment on above: Performed By: #### L 501.9520, L506.0400, L500.2500, L100.0100 ####[facility] [address] [place], [address] MCH (RBC) [Entitic mass] 30.5 pg Normal 27.0-32.0 [facility] Comment on above: Performed By: #### L 501.9520, L506.0400, L500.2500, L100.0100 ####[facility] [address] [place], [address] MCHC (RBC) [Mass/Vol] 33.7 g/dL Normal 32-36 [facility] Comment on above: Performed By: #### L 501.9520, L506.0400, L500.2500, L100.0100 ####[facility] [address] [place], [address] MCV (RBC) [Entitic vol] 90.7 fL Normal 80-94 [facility] Comment on above: Performed By: #### L 501.9520, L506.0400, L500.2500, L100.0100 ####[facility] [address] [place], [address] Monocytes/100 WBC (Bld) 8.7 % Normal 0-10 [facility] Comment on above: Performed By: #### L 501.9520, L506.0400, L500.2500, L100.0100 ####[facility] [address] [place], [address] Neutrophils/100 WBC (Bld) 68.4 % Normal 47-70 [facility] Comment on above: Performed By: #### L 501.9520, L506.0400, L500.2500, L100.0100 ####[facility] [address] [place], [address] Nucleated RBC (Bld) [#/Vol] 0 10*3/uL Normal 0-5 [facility] Comment on above: Performed By: #### L 501.9520, L506.0400, L500.2500, L100.0100 ####[facility] [address] [place], [address] Platelet mean volume (Bld) [Entitic vol] 11.5 fL Normal 6.2-12.0 [facility] Comment on above: Performed By: #### L 501.9520, L506.0400, L500.2500, L100.0100 ####[facility] [address] [place], [address] Platelets (Bld) [#/Vol] 110 10*3/uL Low 150-450 [facility] Comment on above: Performed By: #### L 501.9520, L506.0400, L500.2500, L100.0100 ####[facility] [address] [place], [address] RBC (Bld) [#/Vol] 3.44 10*6/uL Low 4.6-6.2 [facility] Comment on above: Performed By: #### L 501.9520, L506.0400, L500.2500, L100.0100 ####[facility] [address] [place], [address] RDW SD 50.7 fl High 35.1-43.9 [facility] Comment on above: Performed By: #### L 501.9520, L506.0400, L500.2500, L100.0100 ####[facility] [address] [place], [address] WBC (Bld) [#/Vol] 4.5 10*3/uL Normal 4.4-11.0 [facility] Comment on above: Performed By: #### L 501.9520, L506.0400, L500.2500, L100.0100 ####[facility] [address] [place], [address] Carbon dioxide, total [Moles /volume] in Central venous bloodOrdered By: Mike Jay on 06-05-2025 CO2 [Moles/Vol] 24.3 mmol/L 21.0-32.0 [facility] Cardiology Visit Reporton Cardiology Visit Report Normal [facility] Chloride assayOrdered By: Keily Jay on 06-05-2025 Chloride [Moles/Vol] 106 mmol/L 98-108 [facility] Eosinophil percentageOrdered By: Mike Jay on 06-05-2025 Eosinophils/100 WBC (Bld) 3.8 % 0-5 [facility] Erythrocyte distribution wid th ratioOrdered By: Mike Jay on 06-05-2025 Erythrocyte distribution width (RBC) [Ratio] 15.3 % High 11.6-14.6 [facility] Erythrocyte distribution wid th standard deviationOrdered By: Mike Jay on 06-05-2025 Erythrocyte distribution width (RBC) [Ratio] 50.7 fl High 35.1-43.9 [facility] Glomerular filtration rate ( GFR) estimation/1.73 sq m using serum, plasma, or whole bOrdered By: Mike Jay on 06-05-2025 GFR/1.73 sq M.predicted among non-blacks MDRD (S/P/Bld) [Vol rate/Area] 39 mL/min/{1.73_m2} Low >60 [facility] Comment on above: mL/min/1.73m2 CKD-EP I Creatinine Equation (2020) Hematocrit Auto (Bld) [Volum e fraction]Ordered By: Mike Jya on 06-05-2025 Hematocrit (Bld) [Volume fraction] 31.2 % Low 40-54 [facility] Hemoglobin measurementOrdere d By: Mike Jay on 06-05-2025 Hemoglobin (Bld) [Mass/Vol] 10.5 g/dL Low 13.0-16.5 [facility] Immature granulocytes/100 WB C Auto (Bld)Ordered By: Mike Jay on 06-05-2025 Immature granulocytes/100 WBC (Bld) 0.200 % 0.0-0.9 [facility] Comment on above: IG% - Immature Granu locytes (promyelocytes, myelocytes and metamyelocytes) > 1% indicates that a LEFT SHIFT is Present. MCV (mean corpuscular volume ) determinationOrdered By: Mike Jay on 06-05-2025 MCV (RBC) [Entitic vol] 90.7 fL 80-94 [facility] Mean corpuscular hemoglobin (MCH) determinationOrdered By: Mike Jay on 06-05-2025 MCH (RBC) [Entitic mass] 30.5 pg 27.0-32.0 [facility] Mean corpuscular hemoglobin concentration (MCHC) determinationOrdered By: Mike Jay on 06-05-2025 MCHC (RBC) [Mass/Vol] 33.7 g/dL 32-36 [facility] Mean platelet volume determi nationOrdered By: Mike Jay on 06-05-2025 Platelet mean volume (Bld) [Entitic vol] 11.5 fL 6.2-12.0 [facility] Monocyte percentageOrdered B y: Mike Jay on 06-05-2025 Monocytes/100 WBC (Bld) 8.7 % 0-10 [facility] Neutrophil percentageOrdered By: Mike Jay on 06-05-2025 Neutrophils/100 WBC (Bld) 68.4 % 47-70 [facility] Nucleated red blood cell per centageOrdered By: Mike Jay on 06-05-2025 Nucleated RBC/100 WBC (Bld) [Ratio] 0 % 0-5 [facility] Platelet countOrdered By: Keily Jay on 06-05-2025 Platelets (Bld) [#/Vol] 110 10*3/uL Low 150-450 [facility] Potassium measurement (mass/ volume)Ordered By: Mike Jay on 06-05-2025 Potassium (Unsp spec) [Mass/Vol] 4.5 mmol/L 3.3-5.1 [facility] RBC Auto (Bld) [#/Vol]Ordere d By: Mike Jay on 06-05-2025 RBC (Bld) [#/Vol] 3.44 10*6/uL Low 4.6-6.2 [facility] Serum creatinine measurement (mass/volume)Ordered By: Mike Jay on 06-05-2025 Creatinine [Mass/Vol] 1.69 mg/dL High 0.70-1.20 [facility] Serum glucose measurement (m ass/volume)Ordered By: Mike Jay on 06-05-2025 Glucose [Mass/Vol] 110 mg/dL High 70-99 [facility] Serum or plasma calcium jossie urement (mass/volume)Ordered By: Mike Jay on 06-05-2025 Calcium [Mass/Vol] 9.4 mg/dL 7.6-11.0 [facility] Serum or plasma urea nitroge n measurement (mass/volume)Ordered By: Mike Jay on 06-05-2025 Urea nitrogen [Mass/Vol] 40 mg/dL High 4-19 [facility] Sodium levelOrdered By: Mike Jay on 06-05-2025 Sodium [Moles/Vol] 142 mmol/L 133-145 [facility] T4 Free Directon 06-05-2025 T4 FREE DIRECT 1.10 ng/dL Normal 0.76-1.46 [facility] Comment on above: Performed By: #### L 501.9520, L506.0400, L500.2500, L100.0100 ####[facility] [address] [place], [address] T4 freeOrdered By: Mike Jay on 06-05-2025 Free T4 [Mass/Vol] 1.10 ng/dL 0.76-1.46 [facility] TSH DL <= 0.005 mIU/L QnOrde red By: Mike Jay on 06-05-2025 TSH Qn 8.050 uIU/mL High 0.300-4.200 [facility] Thyroid Stim Hormone (TSH)on 06-05-2025 TSH 8.050 uIU/mL High 0.300-4.200 [facility] Comment on above: Performed By: #### L 501.9520, L506.0400, L500.2500, L100.0100 ####[facility] [address] [place], [address] White blood cell (WBC) count Ordered By: Mike Jay on 06-05-2025 WBC (Bld) [#/Vol] 4.5 10*3/uL 4.4-11.0 [facility] CNOVon 05-24-2025 CNOV Normal [facility] CNPTOUTREACHon 05-24-2025 CNPTOUTREACH Normal [facility]20[facility] Absolute lymphocyte countOrd ered By: Cameron Portillo on 05-22-2025 Lymphocytes Auto (Unsp spec) [#/Vol] 1.02 10*3/uL 0.83-4.51 [facility] Absolute neutrophil countOrd ered By: Cameron Portillo on 05-22-2025 Neutrophils (Bld) [#/Vol] 2.3 10*3/uL 2.0-7.7 [facility] Activated partial thrombopla stin time (aPTT) in platelet poor plasma by coagulation aOrdered By: Veena Nelson on 05-22-2025 aPTT Coag (PPP) [Time] 67.5 s High 24.1-36.2 [facility] Anion gap in Serum or Plasma Ordered By: Cameron Portillo on 05-22-2025 Anion gap [Moles/Vol] 10 mmol/L 5-15 [facility] Automated lymphocyte count a s percentage of total leukocytesOrdered By: Cameron Portillo on 05-22-2025 Lymphocytes/100 WBC Auto (Unsp spec) 25.9 % 19-41 [facility] BUN/creatinine ratioOrdered By: Cameron Portillo on 05-22-2025 Urea nitrogen/Creatinine [Mass ratio] 24.2 mg/mg High 10-20 [facility] Basophil percentageOrdered B y: Cameron Portillo on 05-22-2025 Basophils/100 WBC (Bld) 0.5 % 0-1 [facility] Bilirubin, totalOrdered By: Cameron Portillo on 05-22-2025 Bilirubin [Mass/Vol] 0.50 mg/dL 0.00-1.30 [facility] CBC W/Diff, Automatedon Absolute Neut Normal 2.0-7.7 [facility] Comment on above: Result Comment: DUPL ICATE Performed By: #### L 100.0100 ####[facility] [address] [place], [address] HCT Normal 40-54 [facility] Comment on above: Result Comment: DUPL ICATE Performed By: #### L 100.0100 ####[facility] [address] [place], [address] HGB Normal 13.0-16.5 [facility] Comment on above: Result Comment: DUPL ICATE Performed By: #### L 100.0100 ####[facility] [address] [place], [address] MCH Normal 27.0-32.0 [facility] Comment on above: Result Comment: DUPL ICATE Performed By: #### L 100.0100 ####[facility] [address] [place], [address] MCHC Normal 32-36 [facility] Comment on above: Result Comment: DUPL ICATE Performed By: #### L 100.0100 ####[facility] [address] [place], [address] MCV Normal 80-94 [facility] Comment on above: Result Comment: DUPL ICATE Performed By: #### L 100.0100 ####[facility] [address] [place], [address] NEUT% Normal 47-70 [facility] Comment on above: Result Comment: DUPL ICATE Performed By: #### L 100.0100 ####[facility] [address] [place], [address] PLT Normal 150-450 [facility] Comment on above: Result Comment: DUPL ICATE Performed By: #### L 100.0100 ####[facility] [address] [place], [address] RBC Normal 4.6-6.2 [facility] Comment on above: Result Comment: DUPL ICATE Performed By: #### L 100.0100 ####[facility] [address] [place], [address] RDW CV Normal 11.6-14.6 [facility] Comment on above: Result Comment: DUPL ICATE Performed By: #### L 100.0100 ####[facility] [address] [place], [address] RDW SD Normal 35.1-43.9 [facility] Comment on above: Result Comment: DUPL ICATE Performed By: #### L 100.0100 ####[facility] [address] [place], [address] WBC Normal 4.4-11.0 [facility] Comment on above: Result Comment: DUPL ICATE Performed By: #### L 100.0100 ####[facility] [address] [place], [address] Absolute Lymph 1.02 X10 3/uL Normal 0.83-4.51 [facility] Comment on above: Performed By: #### L 500.4050, L503.7505, L100.0100 ####[facility] [address] [place], [address] Absolute Neut 2.3 X10 3/uL Normal 2.0-7.7 [facility] Comment on above: Performed By: #### L 500.4050, L503.7505, L100.0100 ####[facility] [address] [place], [address] Basophils/100 WBC (Bld) 0.5 % Normal 0-1 [facility] Comment on above: Performed By: #### L 500.4050, L503.7505, L100.0100 ####[facility] [address] [place], [address] Eosinophils/100 WBC (Bld) 4.8 % Normal 0-5 [facility] Comment on above: Performed By: #### L 500.4050, L503.7505, L100.0100 ####[facility] [address] [place], [address] Erythrocyte distribution width (RBC) [Ratio] 15.0 % High 11.6-14.6 [facility] Comment on above: Performed By: #### L 500.4050, L503.7505, L100.0100 ####[facility] [address] [place], [address] Hematocrit (Bld) [Volume fraction] 27.8 % Low 40-54 [facility] Comment on above: Performed By: #### L 500.4050, L503.7505, L100.0100 ####[facility] [address] [place], [address] Hemoglobin (Bld) [Mass/Vol] 9.2 g/dL Low 13.0-16.5 [facility] Comment on above: Performed By: #### L 500.4050, L503.7505, L100.0100 ####[facility] [address] [place], [address] IG% 0.300 Normal 0.0-0.9 [facility] Comment on above: Result Comment: IG% - Immature Granulocytes (promyelocytes, myelocytes andmetamyelocytes) > 1% indicates that a LEFT SHIFT is Present. Performed By: #### L 500.4050, L503.7505, L100.0100 ####[facility] [address] [place], [address] Lymphocytes/100 WBC (Bld) 25.9 % Normal 19-41 [facility] Comment on above: Performed By: #### L 500.4050, L503.7505, L100.0100 ####[facility] [address] [place], [address] MCH (RBC) [Entitic mass] 29.9 pg Normal 27.0-32.0 [facility] Comment on above: Performed By: #### L 500.4050, L503.7505, L100.0100 ####[facility] [address] [place], [address] MCHC (RBC) [Mass/Vol] 33.1 g/dL Normal 32-36 [facility] Comment on above: Performed By: #### L 500.4050, L503.7505, L100.0100 ####[facility] [address] [place], [address] MCV (RBC) [Entitic vol] 90.3 fL Normal 80-94 [facility] Comment on above: Performed By: #### L 500.4050, L503.7505, L100.0100 ####[facility] [address] [place], [address] Monocytes/100 WBC (Bld) 9.6 % Normal 0-10 [facility] Comment on above: Performed By: #### L 500.4050, L503.7505, L100.0100 ####[facility] [address] [place], [address] Neutrophils/100 WBC (Bld) 58.9 % Normal 47-70 [facility] Comment on above: Performed By: #### L 500.4050, L503.7505, L100.0100 ####[facility] [address] [place], [address] Nucleated RBC (Bld) [#/Vol] 0 10*3/uL Normal 0-5 [facility] Comment on above: Performed By: #### L 500.4050, L503.7505, L100.0100 ####[facility] [address] [place], [address] Platelet mean volume (Bld) [Entitic vol] 11.1 fL Normal 6.2-12.0 [facility] Comment on above: Performed By: #### L 500.4050, L503.7505, L100.0100 ####[facility] [address] [place], [address] Platelets (Bld) [#/Vol] 83 10*3/uL Low 150-450 [facility] Comment on above: Performed By: #### L 500.4050, L503.7505, L100.0100 ####[facility] [address] [place], [address] RBC (Bld) [#/Vol] 3.08 10*6/uL Low 4.6-6.2 [facility] Comment on above: Performed By: #### L 500.4050, L503.7505, L100.0100 ####[facility] [address] [place], [address] RDW SD 49.6 fl High 35.1-43.9 [facility] Comment on above: Performed By: #### L 500.4050, L503.7505, L100.0100 ####[facility] [address] [place], [address] WBC (Bld) [#/Vol] 3.9 10*3/uL Low 4.4-11.0 [facility] Comment on above: Performed By: #### L 500.4050, L503.7505, L100.0100 ####[facility] [address] [place], [address] Carbon dioxide, total [Moles /volume] in Central venous bloodOrdered By: Cameron Portillo on 05-22-2025 CO2 [Moles/Vol] 24.0 mmol/L 21.0-32.0 [facility] Cardiovascular stress test r eportOrdered By: Jaciel Bahena on 05-22-2025 Study report [facility] [address] [place] [address] MR#: [id number] Acct: [id number] Name: LEANA CAMEJO Rep #: [id number] [...] of 48%. This note was generated with Fin[employer]ation software. It may contain incorrectwords, spelling, and punctuation that were not noted in checking the note beforesigning. 05/22/25 1541 Date _ Jaciel Bahena MD CC: SHELLIE Jay; Dr. Marcel Cordova MD; Dr. Tamera Jorgenesn MD; Dr. Emily Horenr MD; Dr. Randy Soler MD; Dr. Dedrick [...] ~ Date Dictated: 05/22/251535 Date Transcribed: 05/22/251535 [employer] Associate: SONA Signed [facility] Work Phone: Chest 1 View (Portable)on Chest 1 View (Portable) Normal [facility] Chloride assayOrdered By: Justen Portillo on 05-22-2025 Chloride [Moles/Vol] 104 mmol/L 98-108 [facility] Comprehensive Metabolic Prof ilon 05-22-2025 Albumin [Mass/Vol] 3.5 g/dL Normal 3.4-4.8 [facility] Comment on above: Performed By: #### L 500.4050, L503.7505, L100.0100 ####[facility] [address] [place], [address] Albumin/Globulin [Mass ratio] 1.2 {ratio} Normal 0.9-2.4 [facility] Comment on above: Performed By: #### L 500.4050, L503.7505, L100.0100 ####[facility] [address] [place], [address] ALK PHOS 37 U/L Low 40-129 [facility] Comment on above: Performed By: #### L 500.4050, L503.7505, L100.0100 ####[facility] [address] [place], [address] ALT [Catalytic activity/Vol] 19 U/L Normal <=46 [facility] Comment on above: Performed By: #### L 500.4050, L503.7505, L100.0100 ####[facility] [address] [place], [address] AST [Catalytic activity/Vol] 84 U/L High <=37 [facility] Comment on above: Performed By: #### L 500.4050, L503.7505, L100.0100 ####[facility] [address] [place], [address] Bilirubin [Mass/Vol] 0.50 mg/dL Normal 0.00-1.30 [facility] Comment on above: Performed By: #### L 500.4050, L503.7505, L100.0100 ####[facility] [address] [place], [address] BUN/CRE 24.2 RATIO High 10-20 [facility] Comment on above: Performed By: #### L 500.4050, L503.7505, L100.0100 ####[facility] [address] [place], [address] Calcium [Mass/Vol] 8.8 mg/dL Normal 7.6-11.0 [facility] Comment on above: Performed By: #### L 500.4050, L503.7505, L100.0100 ####[facility] [address] [place], [address] Chloride [Moles/Vol] 104 mmol/L Normal 98-108 [facility] Comment on above: Performed By: #### L 500.4050, L503.7505, L100.0100 ####[facility] [address] [place], [address] CO2 [Moles/Vol] 24.0 mmol/L Normal 21.0-32.0 [facility] Comment on above: Performed By: #### L 500.4050, L503.7505, L100.0100 ####[facility] [address] [place], [address] Creatinine [Mass/Vol] 1.79 mg/dL High 0.70-1.20 [facility] Comment on above: Performed By: #### L 500.4050, L503.7505, L100.0100 ####[facility] [address] [place], [address] ECRCL 27.06 ml/min Low 50-250 [facility] Comment on above: Performed By: #### L 500.4050, L503.7505, L100.0100 ####[facility] [address] [place], [address] GAP 10 Normal 5-15 [facility] Comment on above: Performed By: #### L 500.4050, L503.7505, L100.0100 ####[facility] [address] [place], [address] GFR/1.73 sq M.predicted among non-blacks MDRD (S/P/Bld) [Vol rate/Area] 37 mL/min/{1.73_m2} Low >60 [facility] Comment on above: Result Comment: mL/m in/1.73m2 CKD-EPI Creatinine Equation (2020) Performed By: #### L 500.4050, L503.7505, L100.0100 ####[facility] [address] [place], [address] Globulin (S) [Mass/Vol] 2.9 g/dL Normal 2.2-4.2 [facility] Comment on above: Performed By: #### L 500.4050, L503.7505, L100.0100 ####[facility] [address] [place], [address] Glucose [Mass/Vol] 92 mg/dL Normal 70-99 [facility] Comment on above: Performed By: #### L 500.4050, L503.7505, L100.0100 ####[facility] [address] [place], [address] Potassium [Moles/Vol] 3.9 mmol/L Normal 3.3-5.1 [facility] Comment on above: Performed By: #### L 500.4050, L503.7505, L100.0100 ####[facility] [address] [place], [address] Sodium [Moles/Vol] 138 mmol/L Normal 133-145 [facility] Comment on above: Performed By: #### L 500.4050, L503.7505, L100.0100 ####[facility] [address] [place], [address] T PROT 6.3 g/dL Normal 5.9-8.4 [facility] Comment on above: Performed By: #### L 500.4050, L503.7505, L100.0100 ####[facility] [address] [place], [address] Urea nitrogen [Mass/Vol] 43 mg/dL High 4-19 [facility] Comment on above: Performed By: #### L 500.4050, L503.7505, L100.0100 ####[facility] [address] [place], [address] Discharge Instructionon 0 Discharge Instruction Normal [facility] Electrocardiogram reportOrde red By: Alexandru Laughlin on 05-22-2025 EKG study [facility] [address] [place] [address] 12 Lead EKG 05/21/25 0856 MR#: [id number] Acct: [id number] Name: LEANA CAMEJO Rep #:[id number] : [...] previous ECGs available Confirmed by Alexandru Laughlin ([id number]), web content editor BENITA NUNN ([id number]) on 05/22/2025 11:11:41 AM Referred By: JULY Confirmed By: Alexandru Laughlin 05/22/25 1111 Date _ Alexandru Laughlin MD CC: Dr. Lorraine Mcdowell MD; Dr. Olamide Morales MD; Dr. Dallas Reed MD ~ Signed [facility] Work Phone: EKG study [facility] [address] [place] [address] 12 Lead EKG 05/21/25 0215 MR#: [id number] Acct: [id number] Name: LEANA CAMEJO Rep #:[id number] : [...] msec Abnormal ECG Confirmed by Alexandru Laughlin ([id number]), web content editor TORIE MUKHERJEE ([id number]) on 05/22/2025 10:46:57 AM Referred By: Confirmed By: Alexandru Laughlin 05/22/25 1047 Date _ Alexandru Laughlin MD CC: Dr. Veena Nelson DO; Dr. Olamide Morales MD; Dr. Dallas Reed MD ~ Signed [facility] Work Phone: EKG study [facility] [address] [place] [address] 12 Lead EKG 05/21/25 0123 MR#: [id number] Acct: [id number] Name: LEANA CAMEJO Rep #:[id number] : [...] injury Abnormal ECG Confirmed by Alexandru Laughlin ([id number]), web content editor TORIE MUKHERJEE ([id number]) on 05/22/2025 10:46:34 AM Referred By: Confirmed By: Alexandru Laughlin 05/22/25 1046 Date _ Alexandru Laughlin MD CC: Dr. Veena Nelson DO; Dr. Olamide Morales MD; Dr. Dallas Reed MD ~ Signed [facility] Work Phone: EKG study [facility] [address] [place] [address] 12 Lead EKG 05/21/25 0202 MR#: [id number] Acct: [id number] Name: LEANA CAMEJO Rep #:[id number] : [...] acute infarct QTcB >= 480 msec ACUTE UT / STEMI Consider right ventricular involvement in acute inferior infarct Abnormal ECG Confirmed by Alexandru Laughlin ([id number]), web content editor TORIE MUKHERJEE ([id number]) on 05/22/2025 10:46:46 AM Referred By: Confirmed By: Alexandru Laughlin 05/22/25 1046 Date _ Alexandru Laughlin MD CC: Dr. Veena Nelson DO; Dr. Olamide Morales MD; Dr. Dallas Reed MD ~ Signed [facility] Work Phone: [phone] Eosinophil percentageOrdered By: Cameron Portillo on 05-22-2025 Eosinophils/100 WBC (Bld) 4.8 % 0-5 [facility] Erythrocyte distribution wid th ratioOrdered By: Cameron Portillo on 05-22-2025 Erythrocyte distribution width (RBC) [Ratio] 15.0 % High 11.6-14.6 [facility] Erythrocyte distribution wid th standard deviationOrdered By: Cameron Portillo on 05-22-2025 Erythrocyte distribution width (RBC) [Ratio] 49.6 fl High 35.1-43.9 [facility] Glomerular filtration rate ( GFR) estimation/1.73 sq m using serum, plasma, or whole bOrdered By: Cameron Portillo on 05-22-2025 GFR/1.73 sq M.predicted among non-blacks MDRD (S/P/Bld) [Vol rate/Area] 37 mL/min/{1.73_m2} Low >60 [facility] Comment on above: mL/min/1.73m2 CKD-EP I Creatinine Equation (2020) Hematocrit Auto (Bld) [Volum e fraction]Ordered By: Cameron Portillo on 05-22-2025 Hematocrit (Bld) [Volume fraction] 27.8 % Low 40-54 [facility] Hemoglobin measurementOrdere d By: Cameron Portillo on 05-22-2025 Hemoglobin (Bld) [Mass/Vol] 9.2 g/dL Low 13.0-16.5 [facility] Immature granulocytes/100 WB C Auto (Bld)Ordered By: Cameron Portillo on 05-22-2025 Immature granulocytes/100 WBC (Bld) 0.300 % 0.0-0.9 [facility] Comment on above: IG% - Immature Granu locytes (promyelocytes, myelocytes and metamyelocytes) > 1% indicates that a LEFT SHIFT is Present. Laboratory - Chemistry and C hemistry - challengeOrdered By: Cameron Portillo on 05-22-2025 AST [Catalytic activity/Vol] 84 U/L High <38 [facility] MCV (mean corpuscular volume ) determinationOrdered By: Cameron Portillo on 05-22-2025 MCV (RBC) [Entitic vol] 90.3 fL 80-94 [facility] Mean corpuscular hemoglobin (MCH) determinationOrdered By: Cameron Portillo on 05-22-2025 MCH (RBC) [Entitic mass] 29.9 pg 27.0-32.0 [facility] Mean corpuscular hemoglobin concentration (MCHC) determinationOrdered By: Cameron Portillo on 05-22-2025 MCHC (RBC) [Mass/Vol] 33.1 g/dL 32-36 [facility] Mean platelet volume determi nationOrdered By: Cameron Portillo on 05-22-2025 Platelet mean volume (Bld) [Entitic vol] 11.1 fL 6.2-12.0 [facility] Monocyte percentageOrdered B y: Cameron Portillo on 05-22-2025 Monocytes/100 WBC (Bld) 9.6 % 0-10 [facility] Natriuretic peptide.B prohor mani N-Terminal [Mass/volume] in Serum or PlasmaOrdered By: Cameron Portillo on 05-22-2025 Natriuretic peptide.B prohormone N-Terminal [Mass/Vol] 37000 pg/mL High <1800 [facility] Comment on above: Heart Failure Unlike ly: < 300 pg/mLHeart Failure Likely< 50 Years: > 450 pg/mL50-75 Years: > 900 pg/mL>75 Years: > 1800 pg/mL Neutrophil percentageOrdered By: Cameron Portillo on 05-22-2025 Neutrophils/100 WBC (Bld) 58.9 % 47-70 [facility] Nucleated red blood cell per centageOrdered By: Cameron Portillo on 05-22-2025 Nucleated RBC/100 WBC (Bld) [Ratio] 0 % 0-5 [facility] Partial Thromboplast Timeon 05-22-2025 aPTT Coag (Bld) [Time] 67.5 s High 24.1-36.2 [facility] Comment on above: Performed By: #### L 300.4310 ####[facility] [address] [facility] [place], [place], [address] Platelet countOrdered By: Justen Portillo on 05-22-2025 Platelets (Bld) [#/Vol] 83 10*3/uL Low 150-450 [facility] Potassium measurement (mass/ volume)Ordered By: Cameron Portillo on 05-22-2025 Potassium (Unsp spec) [Mass/Vol] 3.9 mmol/L 3.3-5.1 [facility] Pro- Brain NATRIURETIC PEPTI [place] 05-22-2025 Natriuretic peptide B (Bld) [Mass/Vol] 29793 pg/mL High <=1800 [facility] Comment on above: Result Comment: Hear t Failure Unlikely: < 300 pg/mLHeart Failure Likely< 50 Years: > 450 pg/mL50-75 Years: > 900 pg/mL>75 Years: > 1800 pg/mL Performed By: #### L 500.4050, L503.7505, L100.0100 ####[facility] [address] [facility] [place], [place], [id number] RBC Auto (Bld) [#/Vol]Ordere d By: Cameron Portillo on 05-22-2025 RBC (Bld) [#/Vol] 3.08 10*6/uL Low 4.6-6.2 [facility] Serum creatinine measurement (mass/volume)Ordered By: Cameron Portillo on 05-22-2025 Creatinine [Mass/Vol] 1.79 mg/dL High 0.70-1.20 [facility] Serum globulin measurementOr dered By: Cameron Portillo on 05-22-2025 Globulin (S) [Mass/Vol] 2.9 g/dL 2.2-4.2 [facility] Serum glucose measurement (m ass/volume)Ordered By: Cameron Portillo on 05-22-2025 Glucose [Mass/Vol] 92 mg/dL 70-99 [facility] Serum or plasma alanine delgado otransferase (ALT) measurementOrdered By: Cameron Portillo on 05-22-2025 ALT [Catalytic activity/Vol] 19 U/L <47 [facility] Serum or plasma albumin jossie urement (mass/volume)Ordered By: Cameron Portillo on 05-22-2025 Albumin [Mass/Vol] 3.5 g/dL 3.4-4.8 [facility] Serum or plasma albumin/glob ulin mass ratioOrdered By: Cameron Portillo on 05-22-2025 Albumin/Globulin [Mass ratio] 1.2 {ratio} 0.9-2.4 [facility] Serum or plasma alkaline silas sphatase measurementOrdered By: Cameron Portillo on 05-22-2025 ALP [Catalytic activity/Vol] 37 U/L Low 40-129 [facility] Serum or plasma calcium jossie urement (mass/volume)Ordered By: Cameron Portillo on 05-22-2025 Calcium [Mass/Vol] 8.8 mg/dL 7.6-11.0 [facility] Serum or plasma urea nitroge n measurement (mass/volume)Ordered By: Cameron Portillo on 05-22-2025 Urea nitrogen [Mass/Vol] 43 mg/dL High 4-19 [facility] Sodium levelOrdered By: Steve Portillo on 05-22-2025 Sodium [Moles/Vol] 138 mmol/L 133-145 [facility] Stress Reporton 05-22-2025 Stress Report Normal [facility] Total proteinOrdered By: Orion Portillo on 05-22-2025 Protein [Mass/Vol] 6.3 g/dL 5.9-8.4 [facility] White blood cell (WBC) count Ordered By: Cameron Portillo on 05-22-2025 WBC (Bld) [#/Vol] 3.9 10*3/uL Low 4.4-11.0 [facility] 12 Lead EKGon 05-21-2025 12 Lead EKG Normal [facility] 12 Lead EKG Normal [facility] 12 Lead EKG Normal [facility] 12 Lead EKG Normal [facility] Absolute lymphocyte countOrd ered By: Veena Nelson on 05-21-2025 Lymphocytes Auto (Unsp spec) [#/Vol] 0.72 10*3/uL Low 0.83-4.51 [facility] Absolute neutrophil countOrd ered By: Veena Nelson on 05-21-2025 Neutrophils (Bld) [#/Vol] 3.3 10*3/uL 2.0-7.7 [facility] Activated partial thrombopla stin time (aPTT) in platelet poor plasma by coagulation aOrdered By: Veena Nelson on 05-21-2025 aPTT Coag (PPP) [Time] 45.1 s High 24.1-36.2 [facility] Anion gap in Serum or Plasma Ordered By: Veena Nelson on 05-21-2025 Anion gap [Moles/Vol] 15 mmol/L 5-15 [facility] Automated lymphocyte count a s percentage of total leukocytesOrdered By: Veena Nelson on 05-21-2025 Lymphocytes/100 WBC Auto (Unsp spec) 16.2 % Low 19-41 [facility] BUN/creatinine ratioOrdered By: Veena Nelson on 05-21-2025 Urea nitrogen/Creatinine [Mass ratio] 24.7 mg/mg High 10-20 [facility] Basic Metabolic Profile (BMP )on 05-21-2025 BUN/CRE 24.7 RATIO High 10-20 [facility] Comment on above: Performed By: #### L 501.4021, L100.0100, L501.9520, L500.2500, L501.5200 ####[facility] [address] [place], [address] Calcium [Mass/Vol] 9.2 mg/dL Normal 7.6-11.0 [facility] Comment on above: Performed By: #### L 501.4021, L100.0100, L501.9520, L500.2500, L501.5200 ####[facility] [address] [place], [address] Chloride [Moles/Vol] 104 mmol/L Normal 98-108 [facility] Comment on above: Performed By: #### L 501.4021, L100.0100, L501.9520, L500.2500, L501.5200 ####[facility] [address] [place], [address] CO2 [Moles/Vol] 21.4 mmol/L Normal 21.0-32.0 [facility] Comment on above: Performed By: #### L 501.4021, L100.0100, L501.9520, L500.2500, L501.5200 ####[facility] [address] [place], [address] Creatinine [Mass/Vol] 1.86 mg/dL High 0.70-1.20 [facility] Comment on above: Performed By: #### L 501.4021, L100.0100, L501.9520, L500.2500, L501.5200 ####[facility] [address] [place], [address] ECRCL 26.20 ml/min Low 50-250 [facility] Comment on above: Performed By: #### L 501.4021, L100.0100, L501.9520, L500.2500, L501.5200 ####[facility] [address] [place], [address] GAP 15 Normal 5-15 [facility] Comment on above: Performed By: #### L 501.4021, L100.0100, L501.9520, L500.2500, L501.5200 ####[facility] [address] [place], [address] GFR/1.73 sq M.predicted among non-blacks MDRD (S/P/Bld) [Vol rate/Area] 35 mL/min/{1.73_m2} Low >60 [facility] Comment on above: Result Comment: mL/m in/1.73m2 CKD-EPI Creatinine Equation (2020) Performed By: #### L 501.4021, L100.0100, L501.9520, L500.2500, L501.5200 ####[facility] [address] [place], [address] Glucose [Mass/Vol] 115 mg/dL High 70-99 [facility] Comment on above: Performed By: #### L 501.4021, L100.0100, L501.9520, L500.2500, L501.5200 ####[facility] [address] [place], [address] Potassium [Moles/Vol] 4.2 mmol/L Normal 3.3-5.1 [facility] Comment on above: Performed By: #### L 501.4021, L100.0100, L501.9520, L500.2500, L501.5200 ####[facility] [address] [place], [address] Sodium [Moles/Vol] 140 mmol/L Normal 133-145 [facility] Comment on above: Performed By: #### L 501.4021, L100.0100, L501.9520, L500.2500, L501.5200 ####[facility] [address] [place], [address] Urea nitrogen [Mass/Vol] 46 mg/dL High 4-19 [facility] Comment on above: Performed By: #### L 501.4021, L100.0100, L501.9520, L500.2500, L501.5200 ####[facility] [address] [place], [address] Basophil percentageOrdered B y: Veena Godman on 05-21-2025 Basophils/100 WBC (Bld) 0.7 % 0-1 [facility] Bilirubin Test strip Ql (U)O rdered By: Cameron Portillo on 05-21-2025 Bilirubin Ql (U) Negative Negative [facility] CBC W/Diff, Automatedon 09- Absolute Neut Normal 2.0-7.7 [facility] Comment on above: Order Comment: Comme nts: If not done in prior 24 hours Result Comment: Canc elled via OM: Duplicate Order Performed By: #### L 300.3900, L100.0100 ####[facility] [address] [place], [address] HCT Normal 40-54 [facility] Comment on above: Order Comment: Comme nts: If not done in prior 24 hours Result Comment: Canc elled via OM: Duplicate Order Performed By: #### L 300.3900, L100.0100 ####[facility] [address] [place], [address] HGB Normal 13.0-16.5 [facility] Comment on above: Order Comment: Comme nts: If not done in prior 24 hours Result Comment: Canc elled via OM: Duplicate Order Performed By: #### L 300.3900, L100.0100 ####[facility] [address] [place], [address] MCH Normal 27.0-32.0 [facility] Comment on above: Order Comment: Comme nts: If not done in prior 24 hours Result Comment: Canc elled via OM: Duplicate Order Performed By: #### L 300.3900, L100.0100 ####[facility] [address] [place], [address] MCHC Normal 32-36 [facility] Comment on above: Order Comment: Comme nts: If not done in prior 24 hours Result Comment: Canc elled via OM: Duplicate Order Performed By: #### L 300.3900, L100.0100 ####[facility] [address] [place], [address] MCV Normal 80-94 [facility] Comment on above: Order Comment: Comme nts: If not done in prior 24 hours Result Comment: Canc elled via OM: Duplicate Order Performed By: #### L 300.3900, L100.0100 ####[facility] [address] [place], [address] NEUT% Normal 47-70 [facility] Comment on above: Order Comment: Comme nts: If not done in prior 24 hours Result Comment: Canc elled via OM: Duplicate Order Performed By: #### L 300.3900, L100.0100 ####[facility] [address] [place], [address] PLT Normal 150-450 [facility] Comment on above: Order Comment: Comme nts: If not done in prior 24 hours Result Comment: Canc elled via OM: Duplicate Order Performed By: #### L 300.3900, L100.0100 ####[facility] [address] [place], [address] RBC Normal 4.6-6.2 [facility] Comment on above: Order Comment: Comme nts: If not done in prior 24 hours Result Comment: Canc elled via OM: Duplicate Order Performed By: #### L 300.3900, L100.0100 ####[facility] [address] [place], [address] RDW CV Normal 11.6-14.6 [facility] Comment on above: Order Comment: Comme nts: If not done in prior 24 hours Result Comment: Canc elled via OM: Duplicate Order Performed By: #### L 300.3900, L100.0100 ####[facility] [address] [place], [address] RDW SD Normal 35.1-43.9 [facility] Comment on above: Order Comment: Comme nts: If not done in prior 24 hours Result Comment: Canc elled via OM: Duplicate Order Performed By: #### L 300.3900, L100.0100 ####[facility] [address] [place], [address] WBC Normal 4.4-11.0 [facility] Comment on above: Order Comment: Comme nts: If not done in prior 24 hours Result Comment: Canc elled via OM: Duplicate Order Performed By: #### L 300.3900, L100.0100 ####[facility] [address] [place], [address] Absolute Lymph 0.72 X10 3/uL Low 0.83-4.51 [facility] Comment on above: Performed By: #### L 501.4021, L100.0100, L501.9520, L500.2500, L501.5200 ####[facility] [address] [place], [address] Absolute Neut 3.3 X10 3/uL Normal 2.0-7.7 [facility] Comment on above: Performed By: #### L 501.4021, L100.0100, L501.9520, L500.2500, L501.5200 ####[facility] [address] [place], [address] Basophils/100 WBC (Bld) 0.7 % Normal 0-1 [facility] Comment on above: Performed By: #### L 501.4021, L100.0100, L501.9520, L500.2500, L501.5200 ####[facility] [address] [place], [address] Eosinophils/100 WBC (Bld) 3.6 % Normal 0-5 [facility] Comment on above: Performed By: #### L 501.4021, L100.0100, L501.9520, L500.2500, L501.5200 ####[facility] [address] [place], [address] Erythrocyte distribution width (RBC) [Ratio] 14.7 % High 11.6-14.6 [facility] Comment on above: Performed By: #### L 501.4021, L100.0100, L501.9520, L500.2500, L501.5200 ####[facility] [address] [place], [address] Hematocrit (Bld) [Volume fraction] 32.6 % Low 40-54 [facility] Comment on above: Performed By: #### L 501.4021, L100.0100, L501.9520, L500.2500, L501.5200 ####[facility] [address] [place], [address] Hemoglobin (Bld) [Mass/Vol] 10.5 g/dL Low 13.0-16.5 [facility] Comment on above: Performed By: #### L 501.4021, L100.0100, L501.9520, L500.2500, L501.5200 ####[facility] [address] [place], [address] IG% 0.700 Normal 0.0-0.9 [facility] Comment on above: Result Comment: IG% - Immature Granulocytes (promyelocytes, myelocytes andmetamyelocytes) > 1% indicates that a LEFT SHIFT is Present. Performed By: #### L 501.4021, L100.0100, L501.9520, L500.2500, L501.5200 ####[facility] [address] [place], [address] Lymphocytes/100 WBC (Bld) 16.2 % Low 19-41 [facility] Comment on above: Performed By: #### L 501.4021, L100.0100, L501.9520, L500.2500, L501.5200 ####[facility] [address] [place], [address] MCH (RBC) [Entitic mass] 29.3 pg Normal 27.0-32.0 [facility] Comment on above: Performed By: #### L 501.4021, L100.0100, L501.9520, L500.2500, L501.5200 ####[facility] [address] [place], [address] MCHC (RBC) [Mass/Vol] 32.2 g/dL Normal 32-36 [facility] Comment on above: Performed By: #### L 501.4021, L100.0100, L501.9520, L500.2500, L501.5200 ####[facility] [address] [place], [address] MCV (RBC) [Entitic vol] 91.1 fL Normal 80-94 [facility] Comment on above: Performed By: #### L 501.4021, L100.0100, L501.9520, L500.2500, L501.5200 ####[facility] [address] [place], [address] Monocytes/100 WBC (Bld) 5.8 % Normal 0-10 [facility] Comment on above: Performed By: #### L 501.4021, L100.0100, L501.9520, L500.2500, L501.5200 ####[facility] [address] [place], [address] Neutrophils/100 WBC (Bld) 73.0 % High 47-70 [facility] Comment on above: Performed By: #### L 501.4021, L100.0100, L501.9520, L500.2500, L501.5200 ####[facility] [address] [place], [address] Nucleated RBC (Bld) [#/Vol] 0 10*3/uL Normal 0-5 [facility] Comment on above: Performed By: #### L 501.4021, L100.0100, L501.9520, L500.2500, L501.5200 ####[facility] [address] [place], [address] Platelet mean volume (Bld) [Entitic vol] 11.2 fL Normal 6.2-12.0 [facility] Comment on above: Performed By: #### L 501.4021, L100.0100, L501.9520, L500.2500, L501.5200 ####[facility] [address] [place], [address] Platelets (Bld) [#/Vol] 92 10*3/uL Low 150-450 [facility] Comment on above: Performed By: #### L 501.4021, L100.0100, L501.9520, L500.2500, L501.5200 ####[facility] [address] [place], [address] RBC (Bld) [#/Vol] 3.58 10*6/uL Low 4.6-6.2 [facility] Comment on above: Performed By: #### L 501.4021, L100.0100, L501.9520, L500.2500, L501.5200 ####[facility] [address] [place], [address] RDW SD 49.6 fl High 35.1-43.9 [facility] Comment on above: Performed By: #### L 501.4021, L100.0100, L501.9520, L500.2500, L501.5200 ####[facility] [address] [place], [address] WBC (Bld) [#/Vol] 4.5 10*3/uL Normal 4.4-11.0 [facility] Comment on above: Performed By: #### L 501.4021, L100.0100, L501.9526, L500.2500, L501.5200 ####[facility] [address] [place], [address] Calculated very low density lipoprotein (VLDL) cholesterol measurementOrdered By: Cameron Portillo on 05-21-2025 Calculated very low density lipoprotein (VLDL) cholesterol measurement 9 mg/dL 5-40 [facility] Carbon dioxide, total [Moles /volume] in Central venous bloodOrdered By: Veena Nelson on 05-21-2025 CO2 [Moles/Vol] 21.4 mmol/L 21.0-32.0 [facility] Chest 1 View (Portable)on Chest 1 View (Portable) Normal [facility] Chloride assayOrdered By: Markell Nelson on 05-21-2025 Chloride [Moles/Vol] 104 mmol/L 98-108 [facility] Consultation - Cardiologyon 05-21-2025 Consultation - Cardiology Normal [facility] Echo Completeon 05-21-2025 Echo Complete Normal [facility] Echocardiogram study reportO rdered By: Lorraine Mcdowell on 05-21-2025 Study report [facility] [address] [place] [address] Echo Complete 05/21/25 0836 MR#: [id number] Acct: [id number] Name: LEANA CAMEJO Rep #:[id number] : 1940 85 From: Lorraine Mcdowell MD Attending Dr: Dr. Olamide Morales MD Status: ADM IN Ordering Dr: Cameron Solares DO Date: 05/21/25 Location: ICU Sex: M C Admitted: 05/21/25 Reason For Study Reason For Study: s/p UT Procedure This was a 2D Doppler, Color [...] Dictated: 05/21/25 0836 Date Transcribed: 05/21/25 1204 [employer] Associate: Signed [facility] Work Phone: Emergency Department Summary on 05-21-2025 Emergency Department Summary Normal [facility] Eosinophil percentageOrdered By: Veena Nelosn on 05-21-2025 Eosinophils/100 WBC (Bld) 3.6 % 0-5 [facility] Erythrocyte distribution wid th ratioOrdered By: Veena Nelson on 05-21-2025 Erythrocyte distribution width (RBC) [Ratio] 14.7 % High 11.6-14.6 [facility] Erythrocyte distribution wid th standard deviationOrdered By: Veena Nelson on 05-21-2025 Erythrocyte distribution width (RBC) [Ratio] 49.6 fl High 35.1-43.9 [facility] Free T3on 05-21-2025 Free T3 [Mass/Vol] 2.2 pg/mL Normal 2.18-3.98 [facility] Comment on above: Performed By: #### L 501.69224 ####[facility] [address] [place], [address] Free Q0Rswybzx By: Cameron sibley on 05-21-2025 Free T3 [Mass/Vol] 2.2 pg/mL 2.18-3.98 [facility] Glomerular filtration rate ( GFR) estimation/1.73 sq m using serum, plasma, or whole bOrdered By: Veena Nelson on 05-21-2025 GFR/1.73 sq M.predicted among non-blacks MDRD (S/P/Bld) [Vol rate/Area] 35 mL/min/{1.73_m2} Low >60 [facility] Comment on above: mL/min/1.73m2 CKD-EP I Creatinine Equation (2020) H AND P Exam - Hospitaliston 05-21-2025 H&P Exam - Hospitalist Normal [facility] Hematocrit Auto (Bld) [Volum e fraction]Ordered By: Veena Nelson on 05-21-2025 Hematocrit (Bld) [Volume fraction] 32.6 % Low 40-54 [facility] Hemoglobin measurementOrdere d By: Veena Nelson on 05-21-2025 Hemoglobin (Bld) [Mass/Vol] 10.5 g/dL Low 13.0-16.5 [facility] Immature granulocytes/100 WB C Auto (Bld)Ordered By: Veena Nelson on 05-21-2025 Immature granulocytes/100 WBC (Bld) 0.700 % 0.0-0.9 [facility] Comment on above: IG% - Immature Granu locytes (promyelocytes, myelocytes and metamyelocytes) > 1% indicates that a LEFT SHIFT is Present. International normalized rat io (INR) calculationOrdered By: Veena Nelson on 05-21-2025 INR Coag (Bld) [Relative time] 1.3 {INR} [facility] Ketones Test strip Ql (U)Ord ered By: Cameron Portillo on 05-21-2025 Ketones Ql (U) Negative Negative [facility] L501.4021on 05-21-2025 Trop T High Sen 93 ng/L Invalid Interpretation Code <=22 [facility] Comment on above: Result Comment: Crit ical Result(s) Called at 0238: by: ANUJ MCLAIN??Results read back by same. Performed By: #### L 501.4021, L100.0100, L501.9520, L500.2500, L501.5200 ####[facility] [address] [facility] [place], [place], [id number] LDL calc ser/plasOrdered By: Cameron Portillo on 05-21-2025 Cholesterol in LDL [Mass/Vol] 61 mg/dL [facility] Comment on above: Ioyjdjtvyr=183-553 m g/dL & Higher Atpk=583 mg/dL or greaterFriedwald Equation for LDL-C Lipid Profileon 05-21-2025 CHOL:HDL 2.61 Normal [facility] Comment on above: Performed By: #### L 500.4100 ####[facility] [address] [facility] [place], [place], [id number] Cholesterol [Mass/Vol] 114 mg/dL Normal <=200 [facility] Comment on above: Result Comment: Chol esterol level, Desirable <200 mg/dLBorderline high cholesterol 200-239 mg/dLHigh cholesterol >=240 mg/dLRecommendations of the NCEP Adult Treatment Panel for thefollowing risk-cutoff thresholds for the [place] Americanpopulation. Performed By: #### L 500.4100 ####[facility] [address] [place], [address] Cholesterol in LDL [Mass/Vol] 61 mg/dL Normal [facility] Comment on above: Result Comment: Bord ayvkfe=866-309 mg/dL Higher Hecd=166 mg/dL or greaterFriedwald Equation for LDL-C Performed By: #### L 500.4100 ####[facility] [address] [place], [address] MCV (mean corpuscular volume ) determinationOrdered By: Veena Nelson on 05-21-2025 MCV (RBC) [Entitic vol] 91.1 fL 80-94 [facility] Magnesiumon 05-21-2025 Magnesium [Mass/Vol] 2.1 mg/dL Normal 1.5-2.2 [facility] Comment on above: Performed By: #### L 501.4021, L100.0100, L501.9520, L500.2500, L501.5200 ####[facility] [address] [place], [address] Magnesium measurement (mass/ volume)Ordered By: Veena Nelson on 05-21-2025 Magnesium (Unsp spec) [Mass/Vol] 2.1 mg/dL 1.5-2.2 [facility] Mean corpuscular hemoglobin (MCH) determinationOrdered By: Veena Nelson on 05-21-2025 MCH (RBC) [Entitic mass] 29.3 pg 27.0-32.0 [facility] Mean corpuscular hemoglobin concentration (MCHC) determinationOrdered By: Veena Nelson on 05-21-2025 MCHC (RBC) [Mass/Vol] 32.2 g/dL 32-36 [facility] Mean platelet volume determi nationOrdered By: Veena Nelson on 05-21-2025 Platelet mean volume (Bld) [Entitic vol] 11.2 fL 6.2-12.0 [facility] Microscopic analysis of urin e for red blood cells (RBC)Ordered By: Cameron Portillo on 05-21-2025 Microscopic analysis of urine for red blood cells (RBC) 0 SEEN /hpf 0-5 [facility] Monocyte percentageOrdered B y: Veena Nelson on 05-21-2025 Monocytes/100 WBC (Bld) 5.8 % 0-10 [facility] Mucus LM Ql (Urine sed)Order ed By: Cameron Portillo on 05-21-2025 Mucus Ql (Urine sed) 0 SEEN /hpf [facility] Natriuretic peptide.B prohor mani N-Terminal [Mass/volume] in Serum or PlasmaOrdered By: Veena Nelson on 05-21-2025 Natriuretic peptide.B prohormone N-Terminal [Mass/Vol] 3942 pg/mL High <1800 [facility] Comment on above: Heart Failure Unlike ly: < 300 pg/mLHeart Failure Likely< 50 Years: > 450 pg/mL50-75 Years: > 900 pg/mL>75 Years: > 1800 pg/mL Neutrophil percentageOrdered By: Veena Nelson on 05-21-2025 Neutrophils/100 WBC (Bld) 73.0 % High 47-70 [facility] Nitrite Test strip Ql (U)Ord ered By: Cameron Portillo on 05-21-2025 Nitrite Ql (U) Negative Negative [facility] Nucleated red blood cell per centageOrdered By: Veena Nelson on 05-21-2025 Nucleated RBC/100 WBC (Bld) [Ratio] 0 % 0-5 [facility] Partial Thromboplast Timeon 05-21-2025 aPTT Coag (Bld) [Time] 65.0 s High 24.1-36.2 [facility] Comment on above: Performed By: #### L 100.7132 ####[facility] [address] [place], [address] aPTT Coag (Bld) [Time] 67.5 s High 24.1-36.2 [facility] Comment on above: Performed By: #### L 300.4310 ####[facility] [address] [place], [address] aPTT Coag (Bld) [Time] 174.5 s Invalid Interpretation Code 24.1-36.2 [facility] Comment on above: Result Comment: CRIT ICAL VALUE CALLED TO [id number]/01/25 0931 Francia Mancilla.RESULTS READ BACK BY SAME. Performed By: #### L 300.4310 ####[facility] [address] [place], [address] aPTT Coag (Bld) [Time] 45.1 s High 24.1-36.2 [facility] Comment on above: Performed By: #### L 300.3900, L300.4310 ####[facility] [address] [place], [address] Phosphoruson 05-21-2025 Phosphate [Mass/Vol] 2.5 mg/dL Low 2.7-4.5 [facility] Comment on above: Performed By: #### L 501.2300 ####[facility] [address] [place], [address] Platelet countOrdered By: Markell Nelson on 05-21-2025 Platelets (Bld) [#/Vol] 92 10*3/uL Low 150-450 [facility] Potassium measurement (mass/ volume)Ordered By: Veena Nelson on 05-21-2025 Potassium (Unsp spec) [Mass/Vol] 4.2 mmol/L 3.3-5.1 [facility] Pro- Brain NATRIURETIC PEPTI [place] 05-21-2025 Natriuretic peptide B (Bld) [Mass/Vol] 3942 pg/mL High <=1800 [facility] Comment on above: Result Comment: Hear t Failure Unlikely: < 300 pg/mLHeart Failure Likely< 50 Years: > 450 pg/mL50-75 Years: > 900 pg/mL>75 Years: > 1800 pg/mL Performed By: #### L 503.7505 ####[facility] [address] [place], [address] Protein Test strip Ql (U)Ord ered By: Cameron Portillo on 05-21-2025 Protein Ql (U) 15 mg/dl High Negative [facility] Prothrombin Time w/INRon INR Normal [facility] Comment on above: Order Comment: Comme nts: If not done in prior 24 hours Result Comment: Canc elled via OM: Duplicate Order Performed By: #### L 300.3900, L100.0100 ####[facility] [address] [place], [address] PROTIME Normal 11.7-14.9 [facility] Comment on above: Order Comment: Comme nts: If not done in prior 24 hours Result Comment: Canc elled via OM: Duplicate Order Performed By: #### L 300.3900, L100.0100 ####[facility] [address] [place], [address] INR Coag (PPP) [Relative time] 1.3 {INR} Normal [facility] Comment on above: Performed By: #### L 300.3900, L300.4310 ####[facility] [address] [place], [address] PT Coag (PPP) [Time] 16.0 s High 11.7-14.9 [facility] Comment on above: Performed By: #### L 300.3900, L300.4310 ####[facility] [address] [place], [address] Prothrombin timeOrdered By: Veena Nelson on 05-21-2025 PT Coag (PPP) [Time] 16.0 s High 11.7-14.9 [facility] RBC Auto (Bld) [#/Vol]Ordere d By: Veena Nelson on 05-21-2025 RBC (Bld) [#/Vol] 3.58 10*6/uL Low 4.6-6.2 [facility] Screening total cholesterol/ high density lipoprotein (HDL) cholesterol ratioOrdered By: Cameron Portillo on 05-21-2025 Cholesterol.total/Cho lesterol in HDL [Mass ratio] 2.61 {ratio} [facility] Serum creatinine measurement (mass/volume)Ordered By: Veena Nelson on 05-21-2025 Creatinine [Mass/Vol] 1.86 mg/dL High 0.70-1.20 [facility] Serum glucose measurement (m ass/volume)Ordered By: Veena Nelson on 05-21-2025 Glucose [Mass/Vol] 115 mg/dL High 70-99 [facility] Serum or plasma calcium jossie urement (mass/volume)Ordered By: Veena Nelson on 05-21-2025 Calcium [Mass/Vol] 9.2 mg/dL 7.6-11.0 [facility] Serum or plasma cholesterol in HDL measurement (mass/volume)Ordered By: Cameron Portillo on 05-21-2025 Cholesterol in HDL [Mass/Vol] 44 mg/dL >40 [facility] Comment on above: National Cholesterol Education Program (NCEP) guidelines:<40 mg/dL: Low HDL-cholesterol (major risk factor for CHD)>= 60 mg/dL: High HDL-cholesterol (negative risk factor for CHD)HDL-cholesterol is affected by a number of factors, e.g. smoking, exercise, hormones, sex and age. Serum or plasma cholesterol measurement (mass/volume)Ordered By: Cameron Portillo on 05-21-2025 Cholesterol [Mass/Vol] 114 mg/dL <201 [facility] Comment on above: Cholesterol level, D esirable <200 mg/dLBorderline high cholesterol 200-239 mg/dLHigh cholesterol >=240 mg/dLRecommendations of the NCEP Adult Treatment Panel for the following risk-cutoff thresholds for the [place] population. Serum or plasma urea nitroge n measurement (mass/volume)Ordered By: Veena Nelson on 05-21-2025 Urea nitrogen [Mass/Vol] 46 mg/dL High 4-19 [facility] Sodium levelOrdered By: Rupert Nelson on 09-01-2025 Sodium [Moles/Vol] 140 mmol/L 133-145 [facility] Squamous epithelial cells de tection in urine sediment by light microscopyOrdered By: Cameron Portillo on 05-21-2025 Epithelial cells.squamous LM Ql (Urine sed) 0 SEEN /hpf 0-5 [facility] T4 Free Directon 05-21-2025 T4 FREE DIRECT 1.00 ng/dL Normal 0.76-1.46 [facility] Comment on above: Performed By: #### L 506.0400 ####[facility] [address] [place], [place], [phone] T4 freeOrdered By: Cameron sibley on 05-21-2025 Free T4 [Mass/Vol] 1.00 ng/dL 0.76-1.46 [facility] TSH DL <= 0.005 mIU/L QnOrde red By: Veena Nelson on 05-21-2025 TSH Qn 9.790 uIU/mL High 0.300-4.200 [facility] Thyroid Stim Hormone (TSH)on 05-21-2025 TSH 9.790 uIU/mL High 0.300-4.200 [facility] Comment on above: Performed By: #### L 501.4021, L100.0100, L501.9520, L500.2500, L501.5200 ####[facility] [address] [place], [place], [phone] Triglycerides measurementOrd ered By: Cameron Portillo on 05-21-2025 Triglyceride [Mass/Vol] 46 mg/dL <199 [facility] Comment on above: The drugs N-Acetylcy steine and Metamizole may falsely depress this assay. Normal range: <150 mg/dLBorderline High: 150-199 mg/dLHigh: 200-499 mg/dLVery High: >500 mg/dL Troponin T HS 2 HRon 025 Trop T High Sen 222 ng/L Invalid Interpretation Code <=22 [facility] Comment on above: Result Comment: CRIT ICAL VALUE CALLED TO DSLSFKB34/01/25 0429 Adryan Yan.RESULTS READ BACK BY SAME. Performed By: #### L 499.0042 ####[facility] [address] [place], [address] Troponin T HS 4 HRon 025 Trop T High Sen 671 ng/L Invalid Interpretation Code <=22 [facility] Comment on above: Result Comment: Crit ical Result(s) Called at 05/21/2025-07:29 by Haider Garrison.??Results read back by same. Performed By: #### L 499.0043 ####[facility] [address] [place], [address] Troponin T.cardiac [Mass/vol ume] in Serum or Plasma by High sensitivity methodOrdered By: Veena Nelson on 05-21-2025 Troponin T.cardiac High sensitivity method [Mass/Vol] 671 ng/L Critically high <22 [facility] Comment on above: Critical Result(s) C alled at 05/21/2025-07:29 by Haider Garrison. Results read back by same. Troponin T.cardiac High sensitivity method [Mass/Vol] 222 ng/L Critically high <22 [facility] Comment on above: CRITICAL VALUE CONTRERAS D TO [id number]/01/25 0429 Adryan Yan.RESULTS READ BACK BY SAME. Troponin T.cardiac High sensitivity method [Mass/Vol] 93 ng/L Critically high <22 [facility] Comment on above: Critical Result(s) C alled at 0238: by: [facility] Results read back by same. Urinalysis, Completeon 05-21 BACTERIA 0 SEEN Normal None Seen [facility] Comment on above: Order Comment: CLEAN CATCH Performed By: #### L 400.0001 ####[facility] [address] [place], [address] EPI,SQUAMOUS 0 SEEN Normal 0-5 [facility] Comment on above: Order Comment: CLEAN CATCH Performed By: #### L 400.0001 ####[facility] [address] [place], [address] Mucus Ql (Urine sed) 0 SEEN Normal [facility] Comment on above: Order Comment: CLEAN CATCH Performed By: #### L 400.0001 ####[facility] [address] [place], [address] RBC 0 SEEN Normal 0-5 [facility] Comment on above: Order Comment: CLEAN CATCH Performed By: #### L 400.0001 ####[facility] [address] [place], [address] WBC 0 SEEN Normal 0-5 [facility] Comment on above: Order Comment: CLEAN CATCH Performed By: #### L 400.0001 ####[facility] [address] [place], [place], [phone] Urine clarityOrdered By: Orion Portillo on 05-21-2025 Clarity (U) Clear Clear [facility] Urine color determinationOrd ered By: Cameron Portillo on 05-21-2025 Color (U) Yellow Yellow [facility] Urine glucose detectionOrder ed By: Cameron Portillo on 05-21-2025 Glucose Ql (U) Normal mg/dl Normal [facility] Urine leukocyte esterase det ection by dipstickOrdered By: Cameron Portillo on 05-21-2025 Leukocyte esterase Test strip Ql (U) Negative Negative [facility] Urine pHOrdered By: Cameron santillan on 05-21-2025 pH (U) 7.0 [pH] 5.0 - 8.0 [facility] Urine sediment bacteria coun t by microscopy (number/high power field)Ordered By: Cameron Portillo on 05-21-2025 Bacteria LM.HPF (Urine sed) [#/Area] 0 /[HPF] None Seen [facility] Urine specific gravity measu rementOrdered By: Cameron Portillo on 05-21-2025 Specific gravity (U) [Rel density] 1.010 1.002-1.030 [facility] Urine urobilinogen measureme ntOrdered By: Cameron Portillo on 05-21-2025 Urobilinogen Ql (U) Normal mg/dl Normal [facility] White blood cell (WBC) count Ordered By: Veena Nelson on 05-21-2025 WBC (Bld) [#/Vol] 4.5 10*3/uL 4.4-11.0 [facility] White blood cell countOrdere d By: Cameron Portillo on 05-21-2025 White blood cell count 0 SEEN /hpf 0-5 [facility] CBC W Auto Differential pane l (Bld)on 05-18-2025 Basophils (Bld) [#/Vol] 0.04 10*3/uL [facility] Basophils/100 WBC (Bld) 0.9 % [facility] Differential cell count method Nom (Bld) Auto [facility] Eosinophils (Bld) [#/Vol] 0.19 10*3/uL [facility] Eosinophils/100 WBC (Bld) 4.1 % [facility] Erythrocyte distribution width (RBC) [Ratio] 14.9 % 11.5 - 15.0 % [facility] Hematocrit (Bld) [Volume fraction] 34.6 % Low 39.0 - 51.0 % [facility] Hemoglobin (Bld) [Mass/Vol] 11.0 g/dL Low 13.0 - 17.0 g/dL [facility] Immature granulocytes (Bld) [#/Vol] [facility] Immature granulocytes/100 WBC (Bld) 0.2 % [facility] Interpretation and review of laboratory results Abnormal [facility] Lymphocytes (Bld) [#/Vol] 1.04 10*3/uL [facility] Lymphocytes/100 WBC (Bld) 22.2 % [facility] MCH (RBC) [Entitic mass] 29.8 pg 26.0 - 34.0 pg [facility] MCHC (RBC) [Mass/Vol] 31.8 g/dL 30.5 - 36.0 g/dL [facility] MCV (RBC) [Entitic vol] 93.8 fL 80.0 - 100.0 fL [facility] Monocytes (Bld) [#/Vol] 0.53 10*3/uL [facility] Monocytes/100 WBC (Bld) 11.3 % [facility] Neutrophils (Bld) [#/Vol] 2.87 10*3/uL [facility] Neutrophils/100 WBC (Bld) 61.3 % [facility] Nucleated RBC (Bld) [#/Vol] NINF [facility] Nucleated RBC/100 WBC (Bld) [Ratio] 0.0 % /100 WBC [facility] Platelet mean volume (Bld) [Entitic vol] 12.6 fL 9.0 - 12.7 fL [facility] Platelets (Bld) [#/Vol] 73 10*3/uL Low [facility] Comment on above: No clot detected. RBC (Bld) [#/Vol] 3.69 10*6/uL Low 4.20 - 6.0 0 m/uL [facility] WBC (Bld) [#/Vol] 4.68 10*3/uL [facility] Basophils (Bld) [#/Vol] 0.04 10*3/uL Normal <0.11 [facility] Comment on above: Order Comment: Speci men Type: BLOOD SPECIMENOrdering Facility: [facility] Address: [address] [place] [address] Performed By: #### 5 7021-8 ####[facility] LABCLIA [id number] [place] [address] [place] Basophils/100 WBC (Bld) 0.9 % Normal [facility] Comment on above: Order Comment: Speci men Type: BLOOD SPECIMENOrdering Facility: [facility] Address: [address] [place] [address] Performed By: #### 5 7021-8 ####[facility] LABCLIA [id number] [place] [address] [place] Differential cell count method Nom (Bld) Auto Normal [facility] Comment on above: Order Comment: Speci men Type: BLOOD SPECIMENOrdering Facility: [facility] Address: [address] [place] [address] Performed By: #### 5 7021-8 ####[facility] LABCLIA [id number] [place] [address] [place] Eosinophils (Bld) [#/Vol] 0.19 10*3/uL Normal <0.46 [facility] Comment on above: Order Comment: Speci men Type: BLOOD SPECIMENOrdering Facility: [facility] Address: [address] [place] [address] Performed By: #### 5 7021-8 ####[facility] LABCLIA [id number] [address] [address] [place] Eosinophils/100 WBC (Bld) 4.1 % Normal [facility] Comment on above: Order Comment: Speci men Type: BLOOD SPECIMENOrdering Facility: [facility] Address: [address] [place] [address] Performed By: #### 5 7021-8 ####[facility] LABCLIA [id number] [place] [address] [place] Erythrocyte distribution width (RBC) [Ratio] 14.9 % Normal 11.5-15.0 [facility] Comment on above: Order Comment: Speci men Type: BLOOD SPECIMENOrdering Facility: [facility] Address: [address] [place] [address] Performed By: #### 5 7021-8 ####[facility] LABCLIA [id number] [place] [address] [place] Hematocrit (Bld) [Volume fraction] 34.6 % Low 39.0-51.0 [facility] Comment on above: Order Comment: Speci men Type: BLOOD SPECIMENOrdering Facility: [facility] Address: [address] [place] [address] Performed By: #### 5 7021-8 ####[facility] LABCLIA [id number] [address] [address] [place] Hemoglobin (Bld) [Mass/Vol] 11.0 g/dL Low 13.0-17.0 [facility] Comment on above: Order Comment: Speci men Type: BLOOD SPECIMENOrdering Facility: [facility] Address: [address] [place] [address] Performed By: #### 5 7021-8 ####[facility] LABCLIA [id number] [address] [place] [address] [place] Immature granulocytes (Bld) [#/Vol] 10*3/uL Normal <0.10 [facility] Comment on above: Order Comment: Speci men Type: BLOOD SPECIMENOrdering Facility: [facility] Address: [address] [place] [address] Performed By: #### 5 7021-8 ####[facility] LABCLIA [id number] [facility] [address] [place] [address] [place] Immature granulocytes/100 WBC (Bld) 0.2 % Normal [facility] Comment on above: Order Comment: Speci men Type: BLOOD SPECIMENOrdering Facility: [facility] Address: [address] [place] [address] Performed By: #### 5 7021-8 ####[facility] LABCLIA [id number] [address], [place] [address] [place] Lymphocytes (Bld) [#/Vol] 1.04 10*3/uL Normal 1.00-4.00 [facility] Comment on above: Order Comment: Speci men Type: BLOOD SPECIMENOrdering Facility: [facility] Address: [address] [place] [address] Performed By: #### 5 7021-8 ####[facility] LABCLIA [id number] [address], [facility] [place] Lymphocytes/100 WBC (Bld) 22.2 % Normal [facility] Comment on above: Order Comment: Speci men Type: BLOOD SPECIMENOrdering Facility: [facility] Address: [address] [place] [address] Performed By: #### 5 7021-8 ####[facility] LABCLIA [id number] [address] [place] [address] [place] MCH (RBC) [Entitic mass] 29.8 pg Normal 26.0-34.0 [facility] Comment on above: Order Comment: Speci men Type: BLOOD SPECIMENOrdering Facility: [facility] Address: [address] [place] [address] Performed By: #### 5 7021-8 ####[facility] LABCLIA [id number] [place] [address] [place] MCHC (RBC) [Mass/Vol] 31.8 g/dL Normal 30.5-36.0 [facility] Comment on above: Order Comment: Speci men Type: BLOOD SPECIMENOrdering Facility: [facility] Address: [address] [place] [address] Performed By: #### 5 7021-8 ####[facility] LABIA [id number] [place] [address] [place] MCV (RBC) [Entitic vol] 93.8 fL Normal 80.0-100.0 [facility] Comment on above: Order Comment: Speci men Type: BLOOD SPECIMENOrdering Facility: [facility] Address: [address] [place] [address] Performed By: #### 5 7021-8 ####[facility] LABIA [id number] [place] [address] [place] Monocytes (Bld) [#/Vol] 0.53 10*3/uL Normal <0.87 [facility] Comment on above: Order Comment: Speci men Type: BLOOD SPECIMENOrdering Facility: [facility] Address: [address] [place] [address] Performed By: #### 5 7021-8 ####[facility] LABIA [id number] [place] [address] [place] Monocytes/100 WBC (Bld) 11.3 % Normal [facility] Comment on above: Order Comment: Speci men Type: BLOOD SPECIMENOrdering Facility: [facility] Address: [address] [place] [address] Performed By: #### 5 7021-8 ####[facility] LABCLIA [id number] [address] [address] [place] Neutrophils (Bld) [#/Vol] 2.87 10*3/uL Normal 1.45-7.50 [facility] Comment on above: Order Comment: Speci men Type: BLOOD SPECIMENOrdering Facility: [facility] Address: [address] [place] [address] Performed By: #### 5 7021-8 ####[facility] LABCLIA [id number] [place] [address] [place] Neutrophils/100 WBC (Bld) 61.3 % Normal [facility] Comment on above: Order Comment: Speci men Type: BLOOD SPECIMENOrdering Facility: [facility] Address: [address] [place] [address] Performed By: #### 5 7021-8 ####[facility] LABCLIA [id number] [place] [address] [place] Nucleated RBC (Bld) [#/Vol] 10*3/uL Normal <0.01 [facility] Comment on above: Order Comment: Speci men Type: BLOOD SPECIMENOrdering Facility: [facility] Address: [address] [place] [address] Performed By: #### 5 7021-8 ####[facility] LABCLIA [id number] [place] [address] [place] Nucleated RBC/100 WBC (Bld) [Ratio] 0.0 /100 WBC Normal [facility] Comment on above: Order Comment: Speci men Type: BLOOD SPECIMENOrdering Facility: [facility] Address: [address] [place] [address] Performed By: #### 5 7021-8 ####[facility] LABCLIA [id number] [place] [address] [place] Platelet mean volume (Bld) [Entitic vol] 12.6 fL Normal 9.0-12.7 [facility] Comment on above: Order Comment: Speci men Type: BLOOD SPECIMENOrdering Facility: [facility] Address: [address] [place] [address] Performed By: #### 5 7021-8 ####[facility] LABCLIA [id number] [place] [address] [place] Platelets (Bld) [#/Vol] 73 10*3/uL Low 150-400 [facility] Comment on above: Order Comment: Speci men Type: BLOOD SPECIMENOrdering Facility: [facility] Address: [address] [place] [address] Result Comment: No c lot detected. Performed By: #### 5 7021-8 ####[facility] LABCLIA [id number] [place] [address] [place] RBC (Bld) [#/Vol] 3.69 10*6/uL Low 4.20-6.00 [facility] Comment on above: Order Comment: Speci men Type: BLOOD SPECIMENOrdering Facility: [facility] Address: [address] [place] [address] Performed By: #### 5 7021-8 ####[facility] LABIA [id number] [place] [address] [place] WBC (Bld) [#/Vol] 4.68 10*3/uL Normal 3.70-11.00 [facility] Comment on above: Order Comment: Speci men Type: BLOOD SPECIMENOrdering Facility: [facility] Address: [address] [place] [address] Performed By: #### 5 7021-8 ####[facility] LABIA [id number] [place] [address] [place] CNOVon 05-18-2025 CNOV Normal [facility] Ferritin SerPl-mCncon 2024 Ferritin [Mass/Vol] 384.0 ng/mL Normal 30.3-565.7 [facility] Comment on above: Order Comment: Speci men Type: BLOOD SPECIMENOrdering Facility: [facility] Address: [address] [place] [address] Performed By: #### 2 276-4, 3016-3, 77471-4 ####[facility] LABCLIA [id number] [place] [address] [place] Folate SerPl-mCncon 05-18-20 25 Folate [Mass/Vol] 13.6 ng/mL Normal >4.7 [facility] Comment on above: Order Comment: Speci men Type: BLOOD SPECIMENOrdering Facility: [facility] Address: [address] [place] [address] Performed By: #### 2 132-9, 2284-8 ####[facility] LABCLIA [id number] [place] [address] [place] Iron and Iron binding capaci ty panelon 05-18-2025 Iron [Mass/Vol] 76 ug/dL Normal 41-186 [facility] Comment on above: Order Comment: Speci men Type: BLOOD SPECIMENOrdering Facility: [facility] Address: [address] [place] [address] Performed By: #### 2 276-4, 3016-3, 12906-8 ####[facility] LABCLIA [id number] [place] [address] [place] Iron binding capacity [Mass/Vol] 297 ug/dL Normal 232-386 [facility] Comment on above: Order Comment: Speci men Type: BLOOD SPECIMENOrdering Facility: [facility] Address: [address] [place] [address] Performed By: #### 2 276-4, 3016-3, 13413-5 ####[facility] LABCLIA [id number] [address] [address] [place] Iron/TIBC [Molar ratio] 25.6 % Normal 15.0-57.0 [facility] Comment on above: Order Comment: Speci men Type: BLOOD SPECIMENOrdering Facility: [facility] Address: [address] [place] [address] Performed By: #### 2 276-4, 3016-3, 56323-8 ####[facility] LABCLIA [id number] [place] [address] [place] TSH SerPl-aCncon 05-18-2025 TSH Qn 9.500 m[IU]/L High 0.270-4.200 [facility] Comment on above: Order Comment: Speci men Type: BLOOD SPECIMENOrdering Facility: [facility] Address: [address] [place] [address] Performed By: #### 2 276-4, 3016-3, 21986-0 ####[facility] LABCLIA [id number] [place] [address] [place] Vit B12 SerPl-mCncon 025 Cobalamin (Vitamin B12) [Mass/Vol] 1891 pg/mL High 232-1245 [facility] Comment on above: Order Comment: Speci men Type: BLOOD SPECIMENOrdering Facility: [facility] Address: [address] [place] [address] Performed By: #### 2 132-9, 2284-8 ####[facility] LABIA [id number] [place] [id number] [place] Anion gap in Serum or Plasma Ordered By: Mike Jay on 05-10-2025 Anion gap [Moles/Vol] 11 mmol/L 5-15 [facility] BUN/creatinine ratioOrdered By: Mike Jay on 05-10-2025 Urea nitrogen/Creatinine [Mass ratio] 27.0 mg/mg High 07-09 [facility] Basic Metabolic Profile (BMP )on 05-10-2025 BUN/CRE 27.0 RATIO High 07-09 [facility] Comment on above: Order Comment: SEND CRE TO Performed By: #### L 503.7505, L501.5200, L500.2500 ####[facility] [address] [place], [address] Calcium [Mass/Vol] 9.1 mg/dL Normal 7.6-11.0 [facility] Comment on above: Order Comment: SEND CRE TO Performed By: #### L 503.7505, L501.5200, L500.2500 ####[facility] [address] [place], [address] Chloride [Moles/Vol] 101 mmol/L Normal 98-108 [facility] Comment on above: Order Comment: SEND CRE TO Performed By: #### L 503.7505, L501.5200, L500.2500 ####[facility] [address] [place], [address] CO2 [Moles/Vol] 26.1 mmol/L Normal 21.0-32.0 [facility] Comment on above: Order Comment: SEND CRE TO Performed By: #### L 503.7505, L501.5200, L500.2500 ####[facility] [address] [place], [address] Creatinine [Mass/Vol] 1.53 mg/dL High 0.70-1.20 [facility] Comment on above: Order Comment: SEND CRE TO Performed By: #### L 503.7505, L501.5200, L500.2500 ####[facility] [address] [place], [address] GAP 11 Normal 5-15 [facility] Comment on above: Order Comment: SEND CRE TO Performed By: #### L 503.7505, L501.5200, L500.2500 ####[facility] [address] [place], [address] GFR/1.73 sq M.predicted among non-blacks MDRD (S/P/Bld) [Vol rate/Area] 44 mL/min/{1.73_m2} Low >60 [facility] Comment on above: Order Comment: SEND CRE TO Result Comment: mL/m in/1.73m2 CKD-EPI Creatinine Equation (2020) Performed By: #### L 503.7505, L501.5200, L500.2500 ####[facility] [address] [place] [place], [address] Glucose [Mass/Vol] 98 mg/dL Normal 70-99 [facility] Comment on above: Order Comment: SEND CRE TO Performed By: #### L 503.7505, L501.5200, L500.2500 ####[facility] [address] [place], [address] Potassium [Moles/Vol] 4.1 mmol/L Normal 3.3-5.1 [facility] Comment on above: Order Comment: SEND CRE TO Performed By: #### L 503.7505, L501.5200, L500.2500 ####[facility] [address] [place], [address] Sodium [Moles/Vol] 138 mmol/L Normal 133-145 [facility] Comment on above: Order Comment: SEND CRE TO Performed By: #### L 503.7505, L501.5200, L500.2500 ####[facility] [address] [place], [address] Urea nitrogen [Mass/Vol] 41 mg/dL High 4-19 [facility] Comment on above: Order Comment: SEND CRE TO Performed By: #### L 503.7505, L501.5200, L500.2500 ####[facility] [address] [place], [address] Carbon dioxide, total [Moles /volume] in Central venous bloodOrdered By: Mike Jay on 05-10-2025 CO2 [Moles/Vol] 26.1 mmol/L 21.0-32.0 [facility] Cardiology Visit Reporton Cardiology Visit Report Normal [facility] Chloride assayOrdered By: Keily Jay on 05-10-2025 Chloride [Moles/Vol] 101 mmol/L 98-108 [facility] Glomerular filtration rate ( GFR) estimation/1.73 sq m using serum, plasma, or whole bOrdered By: Mike Jay on 05-10-2025 GFR/1.73 sq M.predicted among non-blacks MDRD (S/P/Bld) [Vol rate/Area] 44 mL/min/{1.73_m2} Low >60 [facility] Comment on above: mL/min/1.73m2 CKD-EP I Creatinine Equation (2020) Magnesiumon 05-10-2025 Magnesium [Mass/Vol] 2.3 mg/dL High 1.5-2.2 [facility] Comment on above: Order Comment: SEND CRE TO Performed By: #### L 503.7505, L501.5200, L500.2500 ####[facility] [address] [place], [address] Magnesium measurement (mass/ volume)Ordered By: Mike Jay on 05-10-2025 Magnesium (Unsp spec) [Mass/Vol] 2.3 mg/dL High 1.5-2.2 [facility] Natriuretic peptide.B prohor mani N-Terminal [Mass/volume] in Serum or PlasmaOrdered By: Mike aJy on 05-10-2025 Natriuretic peptide.B prohormone N-Terminal [Mass/Vol] 5468 pg/mL High <1800 [facility] Comment on above: Heart Failure Unlike ly: < 300 pg/mLHeart Failure Likely< 50 Years: > 450 pg/mL50-75 Years: > 900 pg/mL>75 Years: > 1800 pg/mL Potassium measurement (mass/ volume)Ordered By: Mike Jay on 05-10-2025 Potassium (Unsp spec) [Mass/Vol] 4.1 mmol/L 3.3-5.1 [facility] Pro- Brain NATRIURETIC PEPTI [place] 05-10-2025 Natriuretic peptide B (Bld) [Mass/Vol] 5468 pg/mL High <=1800 [facility] Comment on above: Order Comment: SEND CRE TO Result Comment: Hear t Failure Unlikely: < 300 pg/mLHeart Failure Likely< 50 Years: > 450 pg/mL50-75 Years: > 900 pg/mL>75 Years: > 1800 pg/mL Performed By: #### L 503.7505, L501.5200, L500.2500 ####[facility] [address] [place], [address] Serum Creatinine AND GFRon 0 05-10-2025 CREAT,SERUM Normal 0.70-1.20 [facility] Comment on above: Result Comment: OVER LAPPING TEST Performed By: #### L 501.1105 ####[facility] [address] [place], [address] eGFR Normal >60 [facility] Comment on above: Result Comment: OVER LAPPING TEST Performed By: #### L 501.1105 ####[facility] [address] [place], [address] Serum creatinine measurement (mass/volume)Ordered By: Mike Jay on 05-10-2025 Creatinine [Mass/Vol] 1.53 mg/dL High 0.70-1.20 [facility] Serum glucose measurement (m ass/volume)Ordered By: Mike Jay on 05-10-2025 Glucose [Mass/Vol] 98 mg/dL 70-99 [facility] Serum or plasma calcium jossie urement (mass/volume)Ordered By: Mike Jay on 05-10-2025 Calcium [Mass/Vol] 9.1 mg/dL 7.6-11.0 [facility] Serum or plasma urea nitroge n measurement (mass/volume)Ordered By: Mike Jay on 05-10-2025 Urea nitrogen [Mass/Vol] 41 mg/dL High 4-19 [facility] Sodium levelOrdered By: Mike Jay on 05-10-2025 Sodium [Moles/Vol] 138 mmol/L 133-145 [facility] CTA Abd/Pelvis W/WO Contrast on 04-30-2025 CTA Abd/Pelvis W/WO Contrast Normal [facility] MR/BMS.BVSon 04-18-2025 MR/BMS.BVS Normal [facility] CNPTOUTREACHon 04-03-2025 CNPTOUTREACH Normal [facility] CNPTOUTREACHon 03-20-2025 CNPTOUTREACH Normal [facility] 36on 03-19-2025 36 Spoke with patient [...] would like to have this done at [facility] as it is much closer to home. I stated we will fax order to [place] and work to schedule imaging there. Patient expressed understanding and thanked me for calling. Normal [facility] BASIC METABOLIC PANELon 02-19 Anion gap [Moles/Vol] 8 mmol/L Normal 3-13 [facility] Comment on above: Performed By: #### L AB15 #### Vehicle Fare Collector: GUIDO JACOB ([id number]) [facility] ([facility]) [address] [place] [address] Calcium [Mass/Vol] 9.1 mg/dL Normal 8.8-10.0 [facility] Comment on above: Performed By: #### L AB15 #### Vehicle Fare Collector: GUIDO JACOB ([id number]) [facility] [address] [place] [address] [place] Chloride [Moles/Vol] 103 mmol/L Normal 98-107 [facility] Comment on above: Performed By: #### L AB15 #### Vehicle Fare Collector: GUIDO JACOB ([id number]) [facility] ([facility]) [address] [place] [address] CO2 [Moles/Vol] 26 mmol/L Normal 23-31 [facility] Comment on above: Performed By: #### L AB15 #### Vehicle Fare Collector: GUIDO JACOB ([id number]) [facility] ([facility]) [address] [place] [address] Creatinine [Mass/Vol] 1.72 mg/dL High 0.72-1.25 [facility] Comment on above: Performed By: #### L AB15 #### Vehicle Fare Collector: GUIDO JACOB ([id number]) [facility] ([facility]) [address] [place] [address] [place] GLOMERULAR FILTRATION RATE ML/MIN/1.73 SQ M.PREDICTED 38.5 mL/min/1.73m*2 Low >60.0 [facility] Comment on above: Result Comment: Calc ulation based on the Chronic Kidney Disease Epidemiology Collaboration (CKD-EPI) equation refit without adjustment for race Performed By: #### L AB15 #### Vehicle Fare Collector: GUIDO JACOB ([id number]) [facility] ([facility]) [address] [place] [address] [place] Glucose [Mass/Vol] 108 mg/dL Normal 82-115 [facility] Comment on above: Performed By: #### L AB15 #### Vehicle Fare Collector: GUIDO JACOB ([id number]) [facility]) [address] [place] [address] Potassium [Moles/Vol] 4.0 mmol/L Normal 3.5-5.1 [facility] Comment on above: Result Comment: [facility] potassium values may be up to 0.5 mmol/L lower than serum values. Performed By: #### L AB15 #### Vehicle Fare Collector: GUIDO JACOB ([id number]) [facility] [address] [place] [address] [place] Sodium [Moles/Vol] 137 mmol/L Normal 136-145 [facility] Comment on above: Performed By: #### L AB15 #### Vehicle Fare Collector: GUIDO JACOB ([id number]) [facility] [address] [place] [address] [place] Urea nitrogen [Mass/Vol] 49 mg/dL High 9-23 [facility] Comment on above: Performed By: #### L AB15 #### Vehicle Fare Collector: GUIDO JACOB ([id number]) [facility] [address] [place] [address] Basic metabolic 1998 panelon 03-16-2025 Anion gap [Moles/Vol] 8 mmol/L 3 - 13 mmol/L [facility] Calcium [Mass/Vol] 9.1 mg/dL 8.8 - 10. 0 mg/dL [facility] Chloride [Moles/Vol] 103 mmol/L 98 - 10 7 mmol/L [facility] CO2 [Moles/Vol] 26 mmol/L 23 - 31 mmol/L [facility] Creatinine [Mass/Vol] 1.72 mg/dL High 0.72 - 1.25 mg/dL [facility] GFR/1.73 sq M.predicted (S/P/Bld) [Vol rate/Area] 38.5 mL/min Low - PINF [facility] Comment on above: Calculation based on the Chronic Kidney Disease Epidemiology Collaboration (CKD-EPI) equation refit without adjustment for race Glucose [Mass/Vol] 108 mg/dL 82 - 115 mg/dL [facility] Interpretation and review of laboratory results Abnormal [facility] Potassium [Moles/Vol] 4 mmol/L 3.5 - 5.1 mmol/L [facility] Comment on above: Plasma potassium cnythia ues may be up to 0.5 mmol/L lower than serum values. Sodium [Moles/Vol] 137 mmol/L 136 - 145 mmol/L [facility] Urea nitrogen [Mass/Vol] 49 mg/dL High 9 - 23 mg/dL [facility] CBC (HEMOGRAM)on 03-16-2025 Erythrocyte distribution width (RBC) [Ratio] 14.9 % Normal 11.5-15.0 [facility] [employer] [facility] Comment on above: Performed By: #### L AB294 #### Vehicle Fare Collector: GUIDO JACOB ([id number]) [facility] ([facility]) [address] [place] [address] Hematocrit (Bld) [Volume fraction] 31.7 % Low 40.0-52.0 [facility] Comment on above: Performed By: #### L AB294 #### Vehicle Fare Collector: GUIDO JACOB ([id number]) [facility] [address] [place] [address] Hemoglobin (Bld) [Mass/Vol] 10.2 g/dL Low 13.0-18.0 [facility] Comment on above: Performed By: #### L AB294 #### Vehicle Fare Collector: GUIDO JACOB ([id number]) [facility] ([facility]) [address] [place] [address] IPF 3 Normal [facility] Comment on above: Performed By: #### L AB294 #### Vehicle Fare Collector: GUIDO JACOB ([id number]) [facility] ([facility]) [address] [place] [address] MCH (RBC) [Entitic mass] 29.9 pg Normal 26.0-34.0 [facility] Comment on above: Performed By: #### L AB294 #### Vehicle Fare Collector: GUIDO JACOB ([id number]) [facility] ([facility]) [address] [place] [address] MCHC 32.2 % Normal 30.5-36.0 [facility] Comment on above: Performed By: #### L AB294 #### Vehicle Fare Collector: GUIDO JACOB ([id number]) [facility] ([facility]) [address] [place] [address] MCV (RBC) [Entitic vol] 93.0 fL Normal 77.0-99.0 [facility] Comment on above: Performed By: #### L AB294 #### Vehicle Fare Collector: GUIDO JACOB ([id number]) [facility] ([facility]) [address] [place] [address] Platelet mean volume (Bld) [Entitic vol] 11.0 fL Normal 9.0-12.7 [facility] Comment on above: Performed By: #### L AB294 #### Vehicle Fare Collector: GUIDO JACOB ([id number]) [facility] ([facility]) [address] [place] [address] Platelets (Bld) [#/Vol] 87 10*3/uL Low 140-440 [facility] Comment on above: Performed By: #### L AB294 #### Vehicle Fare Collector: GUIDO JACOB ([id number]) [facility]) [address] [place] [address] RBC (Bld) [#/Vol] 3.41 10*6/uL Low 4.40-5.90 [facility] Comment on above: Performed By: #### L AB294 #### Vehicle Fare Collector: GUIDO JACOB ([id number]) [facility] ([facility]) [address] [place] [address] WBC (Bld) [#/Vol] 4.4 10*3/uL Normal 3.6-10.7 [facility] Comment on above: Performed By: #### L AB294 #### Vehicle Fare Collector: GUIDO JACOB ([id number]) [address] CBC panel Auto (Bld)Ordered By: Lourdes Boothe on 03-16-2025 Erythrocyte distribution width (RBC) [Ratio] 14.9 % 11.5 - 15.0 % [facility] Hematocrit (Bld) [Volume fraction] 31.7 % Low 40.0 - 52.0 % [facility] Hemoglobin (Bld) [Mass/Vol] 10.2 g/dL Low 13.0 - 18.0 g/dL [facility] Interpretation and review of laboratory results Abnormal [facility] IPF 3 [facility] MCH (RBC) [Entitic mass] 29.9 pg 26.0 - 34.0 pg [facility] MCHC (RBC) [Mass/Vol] 32.2 % 30.5 - 36.0 % [facility] MCV (RBC) [Entitic vol] 93 fL 77.0 - 99.0 fL [facility] Platelet mean volume (Bld) [Entitic vol] 11 fL 9.0 - 12.7 fL [facility] Platelets (Bld) [#/Vol] 87 10*3/uL Low 140 - 440 10*3/uL [facility] RBC (Bld) [#/Vol] 3.41 10*6/uL Low 4.40 - 5.9 0 10*6/uL [facility] WBC (Bld) [#/Vol] 4.4 10*3/uL 3.6 - 10.7 10*3/uL [facility] Laboratory - Coagulationon 0 03-16-2025 PT Coag (Bld) [Time] 12.1 s High 9.0 - 12.0 s [facility] Nursing Noteon 03-16-2025 Nursing Note Hemostasis achieved Normal [facility] Nursing Note Third coil deployed Normal [facility] Nursing Note Second coil deployed Normal [facility] Nursing Note First coil deployed Normal [facility] Nursing Note 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 Dr. Bobo in to speak with the patient regarding procedure, and consent was obtained. Patient's lab values and allergies were reviewed. Patient was placed supine on exam table, prepped and draped in sterile fashion. Telemetry monitors were placed. Normal [facility] PROTHROMBIN TIMEon INR Coag (PPP) [Relative time] 1.1 {INR} Normal 0.9-1.1 [facility] Comment on above: Result Comment: Irving [...] Infarction Performed By: #### L AB320 #### Vehicle Fare Collector: GUIDO JACOB ([id number]) [facility] ([facility]) [address] [place] [address] PT Coag (PPP) [Time] 12.1 s High 9.0-12.0 [facility] Comment on above: Performed By: #### L AB320 #### Vehicle Fare Collector: GUIDO JACOB ([id number]) [facility]) [address] [place] [address] PT Coag (Bld) [Time]on 03-16 INR Coag (PPP) [Relative time] 1.1 {INR} 0.9 - 1.1 [facility] Comment on above: Recommended Anticoag ulant Therapy: [...] Interpretation and review of laboratory results Abnormal [facility] CNOVon 03-12-2025 CNOV Normal [facility] T4 Free SerPl-mCncon 025 Free T4 [Mass/Vol] 1.1 ng/dL Normal 0.9-1.7 [facility] Comment on above: Order Comment: Speci men Type: BLOOD SPECIMENOrdering Facility: [facility] Address: [address] [place] [address] Performed By: #### 3 016-3, 30212-25 ####[facility] LABCLIA [id number] [place] [address] [place] TSH SerPl-aCncon 03-12-2025 TSH Qn 11.300 m[IU]/L High 0.270-4.200 [facility] Comment on above: Order Comment: Speci men Type: BLOOD SPECIMENOrdering Facility: [facility] Address: [address] [place] [address] Performed By: #### 3 016-3, 30212-25 ####[facility] LABCLIA [id number] [place] [address] [place] CNPTOUTREACHon 03-02-2025 CNPTOUTREACH Normal [facility] MR/BMS.BVSon 02-27-2025 MR/BMS.BVS Normal [facility] CNPTOUTREACHon 02-26-2025 CNPTOUTREACH Normal [facility] CNPTOUTREACHon 02-19-2025 CNPTOUTREACH Normal [facility] Anion gap in Serum or Plasma Ordered By: Dustin Hawk on 02-14-2025 Anion gap [Moles/Vol] 12 mmol/L 5-15 [facility] BUN/creatinine ratioOrdered By: Dustin Hawk on 02-14-2025 Urea nitrogen/Creatinine [Mass ratio] 28.6 mg/mg High 10-20 [facility] Basic Metabolic Profile (BMP )on 02-14-2025 BUN/CRE 28.6 RATIO High 10-20 [facility] Comment on above: Performed By: #### L 100.0500, L500.2500 ####[facility] [address] [place], [address] Calcium [Mass/Vol] 9.5 mg/dL Normal 7.6-11.0 [facility] Comment on above: Performed By: #### L 100.0500, L500.2500 ####[facility] [address] [place], [address] Chloride [Moles/Vol] 102 mmol/L Normal 98-108 [facility] Comment on above: Performed By: #### L 100.0500, L500.2500 ####[facility] [address] [place], [address] CO2 [Moles/Vol] 25.1 mmol/L Normal 21.0-32.0 [facility] Comment on above: Performed By: #### L 100.0500, L500.2500 ####[facility] [address] [place], [address] Creatinine [Mass/Vol] 1.73 mg/dL High 0.70-1.20 [facility] Comment on above: Performed By: #### L 100.0500, L500.2500 ####[facility] [address] [place], [address] ECRCL 29.64 ml/min Low 50-250 [facility] Comment on above: Performed By: #### L 100.0500, L500.2500 ####[facility] [address] [place], [address] GAP 12 Normal 5-15 [facility] Comment on above: Performed By: #### L 100.0500, L500.2500 ####[facility] [address] [place], [address] GFR/1.73 sq M.predicted among non-blacks MDRD (S/P/Bld) [Vol rate/Area] 38 mL/min/{1.73_m2} Low >60 [facility] Comment on above: Result Comment: mL/m in/1.73m2 CKD-EPI Creatinine Equation (2020) Performed By: #### L 100.0500, L500.2500 ####[facility] [address] [place], [address] Glucose [Mass/Vol] 110 mg/dL High 70-99 [facility] Comment on above: Performed By: #### L 100.0500, L500.2500 ####[facility] [address] [place], [address] Potassium [Moles/Vol] 4.5 mmol/L Normal 3.3-5.1 [facility] Comment on above: Performed By: #### L 100.0500, L500.2500 ####[facility] [address] [place], [address] Sodium [Moles/Vol] 139 mmol/L Normal 133-145 [facility] Comment on above: Performed By: #### L 100.0500, L500.2500 ####[facility] [address] [place], [address] Urea nitrogen [Mass/Vol] 50 mg/dL High 4-19 [facility] Comment on above: Performed By: #### L 100.0500, L500.2500 ####[facility] [address] [place], [address] CBC-Complete Blood Cnt No Di elizabethon 02-14-2025 Erythrocyte distribution width (RBC) [Ratio] 15.0 % High 11.6-14.6 [facility] Comment on above: Performed By: #### L 100.0500, L500.2500 ####[facility] [address] [place], [address] Hematocrit (Bld) [Volume fraction] 35.2 % Low 40-54 [facility] Comment on above: Performed By: #### L 100.0500, L500.2500 ####[facility] [address] [place], [address] Hemoglobin (Bld) [Mass/Vol] 11.6 g/dL Low 13.0-16.5 [facility] Comment on above: Performed By: #### L 100.0500, L500.2500 ####[facility] [address] [place], [address] MCH (RBC) [Entitic mass] 30.6 pg Normal 27.0-32.0 [facility] Comment on above: Performed By: #### L 100.0500, L500.2500 ####[facility] [address] [place], [address] MCHC (RBC) [Mass/Vol] 33.0 g/dL Normal 32-36 [facility] Comment on above: Performed By: #### L 100.0500, L500.2500 ####[facility] [address] [place], [address] MCV (RBC) [Entitic vol] 92.9 fL Normal 80-94 [facility] Comment on above: Performed By: #### L 100.0500, L500.2500 ####[facility] [address] [place], [address] Platelet mean volume (Bld) [Entitic vol] 11.1 fL Normal 6.2-12.0 [facility] Comment on above: Performed By: #### L 100.0500, L500.2500 ####[facility] [address] [place], [address] Platelets (Bld) [#/Vol] 113 10*3/uL Low 150-450 [facility] Comment on above: Performed By: #### L 100.0500, L500.2500 ####[facility] [address] [place], [address] RBC (Bld) [#/Vol] 3.79 10*6/uL Low 4.6-6.2 [facility] Comment on above: Performed By: #### L 100.0500, L500.2500 ####[facility] [address] [place], [address] RDW SD 51.3 fl High 35.1-43.9 [facility] Comment on above: Performed By: #### L 100.0500, L500.2500 ####[facility] [address] [place], [address] WBC (Bld) [#/Vol] 6.0 10*3/uL Normal 4.4-11.0 [facility] Comment on above: Performed By: #### L 100.0500, L500.2500 ####[facility] [address] [place], [address] Carbon dioxide, total [Moles /volume] in Central venous bloodOrdered By: Dustin Hawk on 02-14-2025 CO2 [Moles/Vol] 25.1 mmol/L 21.0-32.0 [facility] Chloride assayOrdered By: Orestes Hawk on 02-14-2025 Chloride [Moles/Vol] 102 mmol/L 98-108 [facility] Erythrocyte distribution wid th ratioOrdered By: Dustin Hawk on 02-14-2025 Erythrocyte distribution width (RBC) [Ratio] 15.0 % High 11.6-14.6 [facility] Erythrocyte distribution wid th standard deviationOrdered By: Dustin Hawk on 02-14-2025 Erythrocyte distribution width (RBC) [Ratio] 51.3 fl High 35.1-43.9 [facility] Glomerular filtration rate ( GFR) estimation/1.73 sq m using serum, plasma, or whole bOrdered By: Dustin Hawk on 02-14-2025 GFR/1.73 sq M.predicted among non-blacks MDRD (S/P/Bld) [Vol rate/Area] 38 mL/min/{1.73_m2} Low >60 [facility] Comment on above: mL/min/1.73m2 CKD-EP I Creatinine Equation (2020) Hematocrit Auto (Bld) [Volum e fraction]Ordered By: Dustin Hawk on 02-14-2025 Hematocrit (Bld) [Volume fraction] 35.2 % Low 40-54 [facility] Hemoglobin measurementOrdere d By: Dustin Hawk on 02-14-2025 Hemoglobin (Bld) [Mass/Vol] 11.6 g/dL Low 13.0-16.5 [facility] MCV (mean corpuscular volume ) determinationOrdered By: Dustin Hawk on 02-14-2025 MCV (RBC) [Entitic vol] 92.9 fL 80-94 [facility] Mean corpuscular hemoglobin (MCH) determinationOrdered By: Dustin Hawk on 02-14-2025 MCH (RBC) [Entitic mass] 30.6 pg 27.0-32.0 [facility] Mean corpuscular hemoglobin concentration (MCHC) determinationOrdered By: Dustin Hawk on 02-14-2025 MCHC (RBC) [Mass/Vol] 33.0 g/dL 32-36 [facility] Mean platelet volume determi nationOrdered By: Dustin Hawk on 02-14-2025 Platelet mean volume (Bld) [Entitic vol] 11.1 fL 6.2-12.0 [facility] Operative Reporton Operative Report Normal [facility] Platelet countOrdered By: Orestes Hawk on 02-14-2025 Platelets (Bld) [#/Vol] 113 10*3/uL Low 150-450 [facility] Potassium measurement (mass/ volume)Ordered By: Dustin Hawk on 02-14-2025 Potassium (Unsp spec) [Mass/Vol] 4.5 mmol/L 3.3-5.1 [facility] RBC Auto (Bld) [#/Vol]Ordere d By: Dustin Hawk on 02-14-2025 RBC (Bld) [#/Vol] 3.79 10*6/uL Low 4.6-6.2 [facility] Serum creatinine measurement (mass/volume)Ordered By: Dustin Hawk on 02-14-2025 Creatinine [Mass/Vol] 1.73 mg/dL High 0.70-1.20 [facility] Serum glucose measurement (m ass/volume)Ordered By: Dustin Hawk on 02-14-2025 Glucose [Mass/Vol] 110 mg/dL High 70-99 [facility] Serum or plasma calcium jossie urement (mass/volume)Ordered By: Dustin Hawk on 02-14-2025 Calcium [Mass/Vol] 9.5 mg/dL 7.6-11.0 [facility] Serum or plasma urea nitroge n measurement (mass/volume)Ordered By: Dustin Hawk on 02-14-2025 Urea nitrogen [Mass/Vol] 50 mg/dL High 4-19 [facility] Sodium levelOrdered By: Dustin Hawk on 02-14-2025 Sodium [Moles/Vol] 139 mmol/L 133-145 [facility] White blood cell (WBC) count Ordered By: Dustin Hawk on 02-14-2025 WBC (Bld) [#/Vol] 6.0 10*3/uL 4.4-11.0 [facility] CNPTOUTREACHon 02-01-2025 CNPTOUTREACH Normal [facility] CTA Abd/Pelvis W/WO Contrast on 01-18-2025 CTA Abd/Pelvis W/WO Contrast Normal [facility] CNPUTREACHon 01-17-2025 CNPTOUTREACH Normal [facility] Abdomen/Pelvis W IV Cont ONL Yon 01-12-2025 Abdomen/Pelvis W IV Cont ONLY Normal [facility] Absolute lymphocyte countOrd ered By: Hernandez King on 01-12-2025 Lymphocytes Auto (Unsp spec) [#/Vol] 1.16 10*3/uL 0.83-4.51 [facility] Absolute neutrophil countOrd ered By: Hernandez King on 01-12-2025 Neutrophils (Bld) [#/Vol] 3.3 10*3/uL 2.0-7.7 [facility] Anion gap in Serum or Plasma Ordered By: Hernandezsingh King on 01-12-2025 Anion gap [Moles/Vol] 11 mmol/L 5-15 [facility] Automated lymphocyte count a s percentage of total leukocytesOrdered By: Hernandezsingh King on 01-12-2025 Lymphocytes/100 WBC Auto (Unsp spec) 22.3 % 19-41 [facility] BUN/creatinine ratioOrdered By: Hernandezsingh King on 01-12-2025 Urea nitrogen/Creatinine [Mass ratio] 24.7 mg/mg High 10- [facility] Basic Metabolic Profile (BMP )on 01-12-2025 BUN/CRE 24.7 RATIO High 10- [facility] Comment on above: Performed By: #### L 100.0100, L500.2500 ####[facility] [address] [place], [address] Calcium [Mass/Vol] 8.8 mg/dL Normal 7.6-11.0 [facility] Comment on above: Performed By: #### L 100.0100, L500.2500 ####[facility] [address] [place], [address] Chloride [Moles/Vol] 102 mmol/L Normal 98-108 [facility] Comment on above: Performed By: #### L 100.0100, L500.2500 ####[facility] [address] [place], [address] CO2 [Moles/Vol] 24.7 mmol/L Normal 21.0-32.0 [facility] Comment on above: Performed By: #### L 100.0100, L500.2500 ####[facility] [address] [place], [address] Creatinine [Mass/Vol] 1.54 mg/dL High 0.70-1.20 [facility] Comment on above: Performed By: #### L 100.0100, L500.2500 ####[facility] [address] [place], [address] ECRCL 33.25 ml/min Low 50-250 [facility] Comment on above: Performed By: #### L 100.0100, L500.2500 ####[facility] [address] [place], [address] GAP 11 Normal 5-15 [facility] Comment on above: Performed By: #### L 100.0100, L500.2500 ####[facility] [address] [place], [address] GFR/1.73 sq M.predicted among non-blacks MDRD (S/P/Bld) [Vol rate/Area] 44 mL/min/{1.73_m2} Low >60 [facility] Comment on above: Result Comment: mL/m in/1.73m2 CKD-EPI Creatinine Equation (2020) Performed By: #### L 100.0100, L500.2500 ####[facility] [address] [place], [address] Glucose [Mass/Vol] 93 mg/dL Normal 70-99 [facility] Comment on above: Performed By: #### L 100.0100, L500.2500 ####[facility] [address] [place], [address] Potassium [Moles/Vol] 3.9 mmol/L Normal 3.3-5.1 [facility] Comment on above: Performed By: #### L 100.0100, L500.2500 ####[facility] [address] [place], [address] Sodium [Moles/Vol] 138 mmol/L Normal 133-145 [facility] Comment on above: Performed By: #### L 100.0100, L500.2500 ####[facility] [address] [place], [address] Urea nitrogen [Mass/Vol] 38 mg/dL High 4-19 [facility] Comment on above: Performed By: #### L 100.0100, L500.2500 ####[facility] [address] [place], [address] Basophil percentageOrdered B y: Hernandez King on 01-12-2024 Basophils/100 WBC (Bld) 0.8 % 0-1 [facility] CBC W/Diff, Automatedon 12-20 Absolute Lymph 1.16 X10 3/uL Normal 0.83-4.51 [facility] Comment on above: Performed By: #### L 100.0100, L500.2500 ####[facility] [address] [place], [address] Absolute Neut 3.3 X10 3/uL Normal 2.0-7.7 [facility] Comment on above: Performed By: #### L 100.0100, L500.2500 ####[facility] [address] [place], [address] Basophils/100 WBC (Bld) 0.8 % Normal 0-1 [facility] Comment on above: Performed By: #### L 100.0100, L500.2500 ####[facility] [address] [place], [address] Eosinophils/100 WBC (Bld) 3.5 % Normal 0-5 [facility] Comment on above: Performed By: #### L 100.0100, L500.2500 ####[facility] [address] [place], [address] Erythrocyte distribution width (RBC) [Ratio] 14.8 % High 11.6-14.6 [facility] Comment on above: Performed By: #### L 100.0100, L500.2500 ####[facility] [address] [place], [address] Hematocrit (Bld) [Volume fraction] 35.6 % Low 40-54 [facility] Comment on above: Performed By: #### L 100.0100, L500.2500 ####[facility] [address] [place], [address] Hemoglobin (Bld) [Mass/Vol] 11.5 g/dL Low 13.0-16.5 [facility] Comment on above: Performed By: #### L 100.0100, L500.2500 ####[facility] [address] [place], [address] IG% 0.400 Normal 0.0-0.9 [facility] Comment on above: Result Comment: IG% - Immature Granulocytes (promyelocytes, myelocytes andmetamyelocytes) > 1% indicates that a LEFT SHIFT is Present. Performed By: #### L 100.0100, L500.2500 ####[facility] [address] [place], [address] Lymphocytes/100 WBC (Bld) 22.3 % Normal 19-41 [facility] Comment on above: Performed By: #### L 100.0100, L500.2500 ####[facility] [address] [place], [address] MCH (RBC) [Entitic mass] 29.6 pg Normal 27.0-32.0 [facility] Comment on above: Performed By: #### L 100.0100, L500.2500 ####[facility] [address] [place], [address] MCHC (RBC) [Mass/Vol] 32.3 g/dL Normal 32-36 [facility] Comment on above: Performed By: #### L 100.0100, L500.2500 ####[facility] [address] [place], [address] MCV (RBC) [Entitic vol] 91.8 fL Normal 80-94 [facility] Comment on above: Performed By: #### L 100.0100, L500.2500 ####[facility] [address] [place], [address] Monocytes/100 WBC (Bld) 9.8 % Normal 0-10 [facility] Comment on above: Performed By: #### L 100.0100, L500.2500 ####[facility] [address] [place], [address] Neutrophils/100 WBC (Bld) 63.2 % Normal 47-70 [facility] Comment on above: Performed By: #### L 100.0100, L500.2500 ####[facility] [address] [place], [address] Nucleated RBC (Bld) [#/Vol] 0 10*3/uL Normal 0-5 [facility] Comment on above: Performed By: #### L 100.0100, L500.2500 ####[facility] [address] [place], [address] Platelet mean volume (Bld) [Entitic vol] 10.8 fL Normal 6.2-12.0 [facility] Comment on above: Performed By: #### L 100.0100, L500.2500 ####[facility] [address] [place], [address] Platelets (Bld) [#/Vol] 104 10*3/uL Low 150-450 [facility] Comment on above: Performed By: #### L 100.0100, L500.2500 ####[facility] [address] [place], [address] RBC (Bld) [#/Vol] 3.88 10*6/uL Low 4.6-6.2 [facility] Comment on above: Performed By: #### L 100.0100, L500.2500 ####[facility] [address] [place], [address] RDW SD 49.7 fl High 35.1-43.9 [facility] Comment on above: Performed By: #### L 100.0100, L500.2500 ####[facility] [address] [place], [address] WBC (Bld) [#/Vol] 5.2 10*3/uL Normal 4.4-11.0 [facility] Comment on above: Performed By: #### L 100.0100, L500.2500 ####[facility] [address] [place], [address] Carbon dioxide, total [Moles /volume] in Central venous bloodOrdered By: Hernandez King on 01-12-2025 CO2 [Moles/Vol] 24.7 mmol/L 21.0-32.0 [facility] Chloride assayOrdered By: Ug o King on 01-12-2025 Chloride [Moles/Vol] 102 mmol/L 98-108 [facility] Emergency Department Summary on 01-12-2025 Emergency Department Summary Normal [facility] Eosinophil percentageOrdered By: Hernandez King on 01-12-2025 Eosinophils/100 WBC (Bld) 3.5 % 0-5 [facility] Erythrocyte distribution wid th (RBC) [Ratio]Ordered By: Hernandez King on 01-12-2025 Erythrocyte distribution width (RBC) [Entitic vol] 49.7 fL High 35.1-43.9 [facility] Erythrocyte distribution wid th ratioOrdered By: Hrenandez King on 01-12-2025 Erythrocyte distribution width (RBC) [Ratio] 14.8 % High 11.6-14.6 [facility] Erythrocyte distribution wid th standard deviationOrdered By: Hernandez King on 01-12-2025 Erythrocyte distribution width (RBC) [Ratio] 49.7 fl High 35.1-43.9 [facility] Estimation of creatinine maira aranceOrdered By: Hernandez King on 01-12-2025 Estimated Creatinine Clearance Calc 33.25 ml/min Low 50-250 [facility] GFR/1.73 sq M.predicted gabi g non-blacks MDRD (S/P/Bld) [Vol rate/Area]Ordered By: Hernandez King on 01-12-2025 Estimated GFR (MDRD) Non-Af Amer 44 Low >60 [facility] Comment on above: mL/min/1.73m2 CKD-EP I Creatinine Equation (2020) Glomerular filtration rate ( GFR) estimation/1.73 sq m using serum, plasma, or whole bOrdered By: Hernandez King on 01-12-2025 GFR/1.73 sq M.predicted among non-blacks MDRD (S/P/Bld) [Vol rate/Area] 44 mL/min/{1.73_m2} Low >60 [facility] Comment on above: mL/min/1.73m2 CKD-EP I Creatinine Equation (2020) Hematocrit Auto (Bld) [Volum e fraction]Ordered By: Hernandez King on 01-12-2025 Hematocrit (Bld) [Volume fraction] 35.6 % Low 40-54 [facility] Hemoglobin measurementOrdere d By: Hernandez King on 01-12-2025 Hemoglobin (Bld) [Mass/Vol] 11.5 g/dL Low 13.0-16.5 [facility] Immature granulocytes/100 WB C Auto (Bld)Ordered By: Hernandez King on 01-12-2025 Immature granulocytes/100 WBC (Bld) 0.400 % 0.0-0.9 [facility] Comment on above: IG% - Immature Granu locytes (promyelocytes, myelocytes and metamyelocytes) > 1% indicates that a LEFT SHIFT is Present. Lymphocytes Auto (Unsp spec) [#/Vol]Ordered By: Hernandez King on 01-12-2025 Lymphocytes (Bld) [#/Vol] 1.16 10*3/uL 0.83-4.51 [facility] Lymphocytes/100 WBC Auto (Un sp spec)Ordered By: Hernandez King on 01-12-2025 Lymphocytes/100 WBC (Bld) 22.3 % 19-41 [facility] MCV (mean corpuscular volume ) determinationOrdered By: Hernandez Mccarthyo on 01-12-2025 MCV (RBC) [Entitic vol] 91.8 fL 80-94 [facility] Mean corpuscular hemoglobin (MCH) determinationOrdered By: Hernandez King on 01-12-2025 MCH (RBC) [Entitic mass] 29.6 pg 27.0-32.0 [facility] Mean corpuscular hemoglobin concentration (MCHC) determinationOrdered By: Hernandez King on 01-12-2025 MCHC (RBC) [Mass/Vol] 32.3 g/dL 32-36 [facility] Mean platelet volume determi nationOrdered By: Hernandez King on 01-12-2025 Platelet mean volume (Bld) [Entitic vol] 10.8 fL 6.2-12.0 [facility] Monocyte percentageOrdered B y: Hernandez King on 01-12-2025 Monocytes/100 WBC (Bld) 9.8 % 0-10 [facility] Neutrophil percentageOrdered By: Hernandez King on 01-12-2025 Neutrophils/100 WBC (Bld) 63.2 % 47-70 [facility] Nucleated red blood cell per centageOrdered By: Hernandez King on 01-12-2025 Nucleated RBC/100 WBC (Bld) [Ratio] 0 % 0-5 [facility] Platelet countOrdered By: Ug singh Mccarthyo on 01-12-2025 Platelets (Bld) [#/Vol] 104 10*3/uL Low 150-450 [facility] Potassium (Unsp spec) [Mass/ Vol]Ordered By: Hernandez King on 01-12-2025 Potassium [Moles/Vol] 3.9 mmol/L 3.3-5.1 [facility] Potassium measurement (mass/ volume)Ordered By: Hernandezsingh King on 01-12-2025 Potassium (Unsp spec) [Mass/Vol] 3.9 mmol/L 3.3-5.1 [facility] RBC Auto (Bld) [#/Vol]Ordere d By: Hernandez King on 01-12-2025 RBC (Bld) [#/Vol] 3.88 10*6/uL Low 4.6-6.2 [facility] Serum creatinine measurement (mass/volume)Ordered By: Hernandez Mccarthyo on 01-12-2025 Creatinine [Mass/Vol] 1.54 mg/dL High 0.70-1.20 [facility] Serum glucose measurement (m ass/volume)Ordered By: Hernandezsingh Mccarthyo on 01-12-2025 Glucose [Mass/Vol] 93 mg/dL 70-99 [facility] Serum or plasma calcium jossie urement (mass/volume)Ordered By: Hernandez King on 01-12-2025 Calcium [Mass/Vol] 8.8 mg/dL 7.6-11.0 [facility] Serum or plasma urea nitroge n measurement (mass/volume)Or[facility] Urea nitrogen [Mass/Vol] 38 mg/dL High 4-19 [facility] Sodium levelOrdered By: [facility] on 01-12-2025 Sodium [Moles/Vol] 138 mmol/L 133-145 [facility] White blood cell (WBC) count Ordered By: Hernandez King on 01-12-2025 WBC (Bld) [#/Vol] 5.2 10*3/uL 4.4-11.0 [facility] CNPTOUTREACHon 12-26-2024 CNPTOUTREACH [facility] MR/BMS.BVSon 12-25-2024 MR/BMS.BVS [facility] CNTHERAPYon 12-22-2024 CNTHERAPY [facility] CNPTOUTREACHon 12-19-2024 CNPTOUTREACH [facility] CNTHERAPYon 12-19-2024 CNTHERAPY Normal [facility] CNTHERAPYon 12-15-2024 CNTHERAPY Normal [facility] CNTHERAPYon 12-12-2024 CNTHERAPY Normal [facility] CNPNon 12-11-2024 CNPN Normal [facility] CNPTOUTREACHon 12-11-2024 CNPTOUTREACH [facility] CNOVon 12-08-2024 CNOV Normal [facility] CNTHERAPYon 03-21-2025 CNTHERAPY Normal [facility] CNTHERAPYon 12-06-2024 CNTHERAPY Normal [facility] THERAPY NTon 12-06-2024 THERAPY NT Normal [facility] CNPTOUTREACHon 12-04-2024 CNPTOUTREACH Normal [facility] CNPNon 12-02-2024 CNPN Normal [facility] CASE MANAGEMon 12-01-2024 CASE MANAGEM Normal [facility] CBC panel Auto (Bld)on 12-01 Erythrocyte distribution width (RBC) [Ratio] 14.8 % Normal 11.5-15.0 [facility] Comment on above: Order Comment: Speci men Type: BLOOD SPECIMENOrdering Facility: [facility] Address: [address] [place] [address] Performed By: #### 5 8410-2 ####[facility] [id number] [place] [address] [place] Hematocrit (Bld) [Volume fraction] 33.8 % Low 39.0-51.0 [facility] Comment on above: Order Comment: Speci men Type: BLOOD SPECIMENOrdering Facility: [facility] Address: [address] [place] [address] Performed By: #### 5 8410-2 ####[facility] LABIA [id number] [place] [address] [place] Hemoglobin (Bld) [Mass/Vol] 10.9 g/dL Low 13.0-17.0 [facility] Comment on above: Order Comment: Speci men Type: BLOOD SPECIMENOrdering Facility: [facility] Address: [address] [place] [address] Performed By: #### 5 8410-2 ####[facility] LABIA [id number] [place] [address] [place] MCH (RBC) [Entitic mass] 30.1 pg Normal 26.0-34.0 [facility] Comment on above: Order Comment: Speci men Type: BLOOD SPECIMENOrdering Facility: [facility] Address: [address] [place] [address] Performed By: #### 5 8410-2 ####[facility] LABCLIA [id number] [place] [address] [place] MCHC (RBC) [Mass/Vol] 32.2 g/dL Normal 30.5-36.0 [facility] Comment on above: Order Comment: Speci men Type: BLOOD SPECIMENOrdering Facility: [facility] Address: [address] [place] [address] Performed By: #### 5 8410-2 ####[facility] LABIA [id number] [place] [address] [place] MCV (RBC) [Entitic vol] 93.4 fL Normal 80.0-100.0 [facility] Comment on above: Order Comment: Speci men Type: BLOOD SPECIMENOrdering Facility: [facility] Address: [address] [place] [address] Performed By: #### 5 8410-2 ####[facility] LABIA [id number] [place] [address] [place] Nucleated RBC (Bld) [#/Vol] 10*3/uL Normal <0.01 [facility] Comment on above: Order Comment: Speci men Type: BLOOD SPECIMENOrdering Facility: [facility] Address: [address] [place] [address] Performed By: #### 5 8410-2 ####[facility] LABIA [id number] [place] [address] [place] Platelet mean volume (Bld) [Entitic vol] 11.0 fL Normal 9.0-12.7 [facility] Comment on above: Order Comment: Speci men Type: BLOOD SPECIMENOrdering Facility: [facility] Address: [address] [place] [address] Performed By: #### 5 8410-2 ####[facility] LABCLIA [id number] [place] [address] [place] Platelets (Bld) [#/Vol] 86 10*3/uL Low 150-400 [facility] Comment on above: Order Comment: Speci men Type: BLOOD SPECIMENOrdering Facility: [facility] Address: [address] [place] [address] Result Comment: No c lot detected. Performed By: #### 5 8410-2 ####[facility] LABIA [id number] [place] [address] [place] RBC (Bld) [#/Vol] 3.62 10*6/uL Low 4.20-6.00 [facility] Comment on above: Order Comment: Speci men Type: BLOOD SPECIMENOrdering Facility: [facility] Address: [address] [place] [address] Performed By: #### 5 8410-2 ####[facility] [id number] [place] [address] [place] WBC (Bld) [#/Vol] 5.61 10*3/uL Normal 3.70-11.00 [facility] Comment on above: Order Comment: Speci men Type: BLOOD SPECIMENOrdering Facility: [facility] Address: [address] [place] [address] Performed By: #### 5 8410-2 ####[facility] LABIA [id number] [place] [address] [place] CNDSon 12-01-2024 CNDS Normal [facility] Comprehensive metabolic 2000 panelon 12-01-2024 Albumin [Mass/Vol] 3.2 g/dL Low 3.9-4.9 [facility] Comment on above: Order Comment: Speci men Type: BLOOD SPECIMENOrdering Facility: [facility] Address: [address] [place] [address] Performed By: #### H STNT, 38192-9 ####[facility] LABCLIA [id number] [place] [id number] [place] ALP [Catalytic activity/Vol] 57 U/L Normal 38-113 [facility] Comment on above: Order Comment: Speci men Type: BLOOD SPECIMENOrdering Facility: [facility] Address: [address] [place] [address] Performed By: #### H STNT, 84609-3 ####[facility] LABCLIA [id number] [place] [address] [place] ALT [Catalytic activity/Vol] 16 U/L Normal 10-54 [facility] Comment on above: Order Comment: Speci men Type: BLOOD SPECIMENOrdering Facility: [facility] Address: [address] [place] [address] Performed By: #### H STNT, 88724-8 ####[facility] LABCLIA [id number] [place] [address] [place] Anion gap [Moles/Vol] 7 mmol/L Low 8-15 [facility] Comment on above: Order Comment: Speci men Type: BLOOD SPECIMENOrdering Facility: [facility] Address: [address] [place] [address] Performed By: #### H STNT, 50331-8 ####[facility] LABCLIA [id number] [place] [address] [place] AST [Catalytic activity/Vol] 22 U/L Normal 14-40 [facility] Comment on above: Order Comment: Speci men Type: BLOOD SPECIMENOrdering Facility: [facility] Address: [address] [place] [address] Performed By: #### H STNT, 08041-8 ####[facility] LABCLIA [id number] [place] [id number] [place] Bilirubin [Mass/Vol] 0.4 mg/dL Normal 0.2-1.3 [facility] Comment on above: Order Comment: Speci men Type: BLOOD SPECIMENOrdering Facility: [facility] Address: [address] [place] [address] Performed By: #### H STNT, 98067-8 ####[facility] LABCLIA [id number] [address] [address] [place] Calcium [Mass/Vol] 8.8 mg/dL Normal 8.5-10.2 [facility] Comment on above: Order Comment: Speci men Type: BLOOD SPECIMENOrdering Facility: [facility] Address: [address] [place], [place] [address] Performed By: #### H STNT, 61295-8 ####[facility] LABCLIA [id number] [address] [address] [place] Chloride [Moles/Vol] 105 mmol/L Normal 98-107 [facility] Comment on above: Order Comment: Speci men Type: BLOOD SPECIMENOrdering Facility: [facility] Address: [address] [place], [place] [address] Performed By: #### H STNT, 33314-9 ####[facility] LABCLIA [id number] [place] [id number] [place] CO2 [Moles/Vol] 26 mmol/L Normal 22-30 [facility] Comment on above: Order Comment: Speci men Type: BLOOD SPECIMENOrdering Facility: [facility] Address: [address] [place], [place] [address] Performed By: #### H STNT, 28921-8 ####[facility] LABCLIA [id number] [address] [address] [place] Creatinine [Mass/Vol] 1.59 mg/dL High 0.73-1.22 [facility] Comment on above: Order Comment: Speci men Type: BLOOD SPECIMENOrdering Facility: [facility] Address: [address] [place], [place] [address] Performed By: #### H STNT, 94026-7 ####[facility] LABCLIA [id number] [place] [address] [place] Creatinine and Glomerular filtration rate.predicted panel (S/P/Bld) 43 mL/min/1.73m??? Low >=60 [facility] Comment on above: Order Comment: Ian lassiter Type: BLOOD SPECIMENOrdering Facility: [facility] Address: [address] [place] [address] Result Comment: Keara mated Glomerular Filtration Rate [...] actual GFR. Performed By: #### H STNYael, 07855-6 ####[facility] LABIA [id number] [place] [address] [place] Glucose [Mass/Vol] 95 mg/dL Normal 74-99 [facility] Comment on above: Order Comment: Ian lassiter Type: BLOOD SPECIMENOrdering Facility: [facility] Address: [address] [place] [address] Result Comment: The [place] [employer] (ADA) provides guidance for cutoff [...] Standards of Medical Care in Diabetes 2016, [place] [employer]. Diabetes Care. 2016.39(Suppl 1). Performed By: #### H STNT, 90715-2 ####[facility] LABCLIA [id number] [address] [address] [place] Potassium [Moles/Vol] 4.9 mmol/L Normal 3.7-5.1 [facility] Comment on above: Order Comment: Speci men Type: BLOOD SPECIMENOrdering Facility: [facility] Address: [address] [place] [address] Performed By: #### H STNT, 21890-7 ####[facility] LABCLIA [id number] [place] [address] [place] Protein [Mass/Vol] 6.0 g/dL Low 6.3-8.0 [facility] Comment on above: Order Comment: Speci men Type: BLOOD SPECIMENOrdering Facility: [facility] Address: [address] [place] [address] Performed By: #### H STNT, 61513-7 ####[facility] LABCLIA [id number] [place] [address] [place] Sodium [Moles/Vol] 138 mmol/L Normal 136-144 [facility] Comment on above: Order Comment: Speci men Type: BLOOD SPECIMENOrdering Facility: [facility] Address: [address] [place] [address] Performed By: #### H STNT, 54894-7 ####[facility] LABCLIA [id number] [place] [address] [place] Urea nitrogen [Mass/Vol] 32 mg/dL High 9-24 [facility] Comment on above: Order Comment: Speci men Type: BLOOD SPECIMENOrdering Facility: [facility] Address: [address] [place] [address] Performed By: #### H STNT, 76306-8 ####[facility] LABCLIA [id number] [place] [address] [place] HIGH SENSITIVITY TROPONIN To n 12-01-2024 Troponin T.cardiac High sensitivity method [Mass/Vol] 104 ng/L High <12 [facility] Comment on above: Order Comment: Speci men Type: BLOOD SPECIMENOrdering Facility: [facility] Address: [address] [place] [address] Performed By: #### H STNT, 32977-0 ####[facility] LABCLIA [id number] [address] [place] [address] [place] PT EDon 12-01-2024 PT ED Normal [facility] THERAPY NTon 12-01-2024 THERAPY NT Normal [facility] CASE MANAGEMon 11-30-2024 CASE MANAGEM Normal [facility] CBC panel Auto (Bld)on 11-30 Erythrocyte distribution width (RBC) [Ratio] 14.8 % Normal 11.5-15.0 [facility] Comment on above: Order Comment: Speci men Type: BLOOD SPECIMENOrdering Facility: [facility] Address: [address] [place] [address] Performed By: #### 5 8410-2 ####[facility] LABCLIA [id number] [place] [address] [place] Hematocrit (Bld) [Volume fraction] 32.6 % Low 39.0-51.0 [facility] Comment on above: Order Comment: Speci men Type: BLOOD SPECIMENOrdering Facility: [facility] Address: [address] [place] [address] Performed By: #### 5 8410-2 ####[facility] LABCLIA [id number] [place] [id number] [place] Hemoglobin (Bld) [Mass/Vol] 10.7 g/dL Low 13.0-17.0 [facility] Comment on above: Order Comment: Speci men Type: BLOOD SPECIMENOrdering Facility: [facility] Address: [address] [place] [address] Performed By: #### 5 8410-2 ####[facility] LABCLIA [id number] [place] [address] [place] MCH (RBC) [Entitic mass] 30.1 pg Normal 26.0-34.0 [facility] Comment on above: Order Comment: Speci men Type: BLOOD SPECIMENOrdering Facility: [facility] Address: [address] [place] [address] Performed By: #### 5 8410-2 ####[facility] LABCLIA [id number] [place] [address] [place] MCHC (RBC) [Mass/Vol] 32.8 g/dL Normal 30.5-36.0 [facility] Comment on above: Order Comment: Speci men Type: BLOOD SPECIMENOrdering Facility: [facility] Address: [address] [place] [address] Performed By: #### 5 8410-2 ####[facility] LABCLIA [id number] [address] [place] MCV (RBC) [Entitic vol] 91.6 fL Normal 80.0-100.0 [facility] Comment on above: Order Comment: Speci men Type: BLOOD SPECIMENOrdering Facility: [facility] Address: [address] [place] [address] Performed By: #### 5 8410-2 ####[facility] LABIA [id number] [address] [place] Nucleated RBC (Bld) [#/Vol] 10*3/uL Normal <0.01 [facility] Comment on above: Order Comment: Speci men Type: BLOOD SPECIMENOrdering Facility: [facility] Address: [address] [place] [address] Performed By: #### 5 8410-2 ####[facility] LABCLIA [id number] [address] [place] Platelet mean volume (Bld) [Entitic vol] 12.0 fL Normal 9.0-12.7 [facility] Comment on above: Order Comment: Speci men Type: BLOOD SPECIMENOrdering Facility: [facility] Address: [address] [place] [address] Performed By: #### 5 8410-2 ####[facility] LABIA [id number] [place] [address] [place] Platelets (Bld) [#/Vol] 79 10*3/uL Low 150-400 [facility] Comment on above: Order Comment: Speci men Type: BLOOD SPECIMENOrdering Facility: [facility] Address: [address] [place] [address] Performed By: #### 5 8410-2 ####[facility] LABIA [id number] [place] [address] [place] RBC (Bld) [#/Vol] 3.56 10*6/uL Low 4.20-6.00 [facility] Comment on above: Order Comment: Speci men Type: BLOOD SPECIMENOrdering Facility: [facility] Address: [address] [place] [address] Performed By: #### 5 8410-2 ####[facility] LABIA [id number] [place] [address] [place] WBC (Bld) [#/Vol] 5.54 10*3/uL Normal 3.70-11.00 [facility] Comment on above: Order Comment: Speci men Type: BLOOD SPECIMENOrdering Facility: [facility] Address: [address] [place] [address] Performed By: #### 5 8410-2 ####[facility] LABIA [id number] [place] [address] [place] CONSULT PROGon 11-30-2024 CONSULT PROG Normal [facility] Comprehensive metabolic 2000 panelon 11-30-2024 Albumin [Mass/Vol] 3.2 g/dL Low 3.9-4.9 [facility] Comment on above: Order Comment: Speci men Type: BLOOD SPECIMENOrdering Facility: [facility] Address: [address] [place] [address] Performed By: #### 2 4323-8, 27703-20, ####[facility] LABCLIA [id number] [place] [address] [place] ALP [Catalytic activity/Vol] 54 U/L Normal 38-113 [facility] Comment on above: Order Comment: Speci men Type: BLOOD SPECIMENOrdering Facility: [facility] Address: [address] [place] [address] Performed By: #### 2 4323-8, 27703-20, ####[facility] LABCLIA [id number] [place] [address] [place] ALT [Catalytic activity/Vol] 20 U/L Normal 10-54 [facility] Comment on above: Order Comment: Speci men Type: BLOOD SPECIMENOrdering Facility: [facility] Address: [address] [place] [address] Performed By: #### 2 4323-8, 27703-20, ####[facility] LABIA [id number] [place] [address] [place] Anion gap [Moles/Vol] 11 mmol/L Normal 8-15 [facility] Comment on above: Order Comment: Speci men Type: BLOOD SPECIMENOrdering Facility: [facility] Address: [address] [place] [address] Performed By: #### 2 4323-8, 27703-20, ####[facility] LABIA [id number] [place] [phone] [place] AST [Catalytic activity/Vol] 22 U/L Normal 14-40 [facility] Comment on above: Order Comment: Speci men Type: BLOOD SPECIMENOrdering Facility: [facility] Address: [address] [place], [place] [address] Performed By: #### 2 4323-8, 27703-20, ####[facility] LABCLIA [id number] [address] [address] [place] Bilirubin [Mass/Vol] 0.4 mg/dL Normal 0.2-1.3 [facility] Comment on above: Order Comment: Speci men Type: BLOOD SPECIMENOrdering Facility: [facility] Address: [address] [place], [place] [address] Performed By: #### 2 4323-8, 2776-09, ####[facility] LABCLIA [id number] [address] [address] [place] Calcium [Mass/Vol] 8.8 mg/dL Normal 8.5-10.2 [facility] Comment on above: Order Comment: Speci men Type: BLOOD SPECIMENOrdering Facility: [facility] Address: [address] [place], [place] [address] Performed By: #### 2 4323-8, 2776-09, ####[facility] LABCLIA [id number] [address] [address] [place] Chloride [Moles/Vol] 102 mmol/L Normal 98-107 [facility] Comment on above: Order Comment: Speci men Type: BLOOD SPECIMENOrdering Facility: [facility] Address: [address] [place] [address] Performed By: #### 2 4323-8, 2776-09, ####[facility] LABCLIA [id number] [address] [address] [place] CO2 [Moles/Vol] 23 mmol/L Normal 22-30 [facility] Comment on above: Order Comment: Speci men Type: BLOOD SPECIMENOrdering Facility: [facility] Address: [address] [place] [address] Performed By: #### 2 4323-8, 2776-09, ####[facility] LABIA [id number] [address] [address] [place] Creatinine [Mass/Vol] 1.59 mg/dL High 0.73-1.22 [facility] Comment on above: Order Comment: Speci maikol Type: BLOOD SPECIMENOrdering Facility: [facility] Address: [address] [place] [address] Performed By: #### 2 4323-8, 2777, ####[facility] LABIA [id number] [address] [address] [place] Creatinine and Glomerular filtration rate.predicted panel (S/P/Bld) 43 mL/min/1.73m??? Low >=60 [facility] Comment on above: Order Comment: Ian lassiter Type: BLOOD SPECIMENOrdering Facility: [facility] Address: [address] [place] [address] Result Comment: Keara mated Glomerular Filtration Rate [...] 2777, ####[facility] [id number] [address] [address] [place] Glucose [Mass/Vol] 98 mg/dL Normal 74-99 [facility] Comment on above: Order Comment: Speci maikol Type: BLOOD SPECIMENOrdering Facility: [facility] Address: [address] [place] [id number] Result Comment: The [place] [employer] (ADA) provides guidance for cutoff [...] Standards of Medical Care in Diabetes 2016, [place] [employer]. Diabetes Care. 2016.39(Suppl 1). Performed By: #### 2 4323-8, 27703-20, ####[facility] LABCLIA [id number] [address] [address] [place] Potassium [Moles/Vol] 4.4 mmol/L Normal 3.7-5.1 [facility] Comment on above: Order Comment: Speci men Type: BLOOD SPECIMENOrdering Facility: [facility] Address: [address] [place] [address] Performed By: #### 2 4323-8, 2776-09, ####[facility] LABCLIA [id number] [address] [address] [place] Protein [Mass/Vol] 5.8 g/dL Low 6.3-8.0 [facility] Comment on above: Order Comment: Speci men Type: BLOOD SPECIMENOrdering Facility: [facility] Address: [address] [place] [address] Performed By: #### 2 4323-8, 2776-09, ####[facility] LABCLIA [id number] [address] [address] [place] Sodium [Moles/Vol] 136 mmol/L Normal 136-144 [facility] Comment on above: Order Comment: Speci men Type: BLOOD SPECIMENOrdering Facility: [facility] Address: [address] [place] [address] Performed By: #### 2 4323-8, 2776-09, ####[facility] LABCLIA [id number] [address] [address] [place] Urea nitrogen [Mass/Vol] 37 mg/dL High 9-24 [facility] Comment on above: Order Comment: Speci men Type: BLOOD SPECIMENOrdering Facility: [facility] Address: [address] [place] [address] Performed By: #### 2 4323-8, 2777-1, ####[facility] LABCLIA [id number] [place] [address] [place] Magnesium SerPl-ncon 11-30 Magnesium [Mass/Vol] 2.3 mg/dL Normal 1.7-2.3 [facility] Comment on above: Order Comment: Speci men Type: BLOOD SPECIMENOrdering Facility: [facility] Address: [address] [place] [address] Performed By: #### 2 4323-8, 2777, ####[facility] LABCLIA [id number] [place] [phone] [place] NURSING PROGon 11-30-2024 NURSING PROG Normal [facility] Phosphate SerPl-ncon 11-30 Phosphate [Mass/Vol] 3.1 mg/dL Normal 2.7-4.8 [facility] Comment on above: Order Comment: Speci men Type: BLOOD SPECIMENOrdering Facility: [facility] Address: [address] [place] [address] Performed By: #### 2 4323-8, 2777, ####[facility] LABIA [id number] [place] [id number] [place] THERAPY NTon 11-30-2024 THERAPY NT Normal [facility] THERAPY NT Normal [facility] CAITLYN BY IFA WITH REFLEXon Nuclear Ab pattern (S) [Interp] Nuclear homogeneous Normal [facility] Comment on above: Order Comment: Speci men Type: BLOOD SPECIMENOrdering Facility: [facility] Address: [address] [place] [address] Performed By: #### 3 2677-7, 44651-0, ANAIFR, 32628-4, 42042-8, 32700-7, 49598-0, 15571-0, 6457-6, 08995-3, 04600-6 ####[facility] LABCLIA [id number] [place] [address] [place] Nuclear Ab Ql (S) Positive Abnormal Negative [facility] Comment on above: Order Comment: Speci men Type: BLOOD SPECIMENOrdering Facility: [facility] Address: [address] [place] [address] Result Comment: Anti -nuclear antibody test is used as an aid in diagnosis of systemic autoimmune diseases. Where positive and clinically warranted, follow-up using disease-specific testing is recommended. Low positive titers are not uncommon with advanced age, certain chronic infections, and malignancies among others.Test methodology: Indirect fluorescence immunoassay (IFA) using HEp-2 cells.1:320 Performed By: #### 3 2677-7, 28434-9, ANAIFR, 71213-6, 81167-2, 18338-3, 05521-7, 28057-1, 6457-6, 46303-9, 68166-8 ####[facility] LABIA [id number] [place] [address] [place] CASE MGT INIT ASSESon 2024 CASE MGT INIT ASSES Normal [facility] CBC panel Auto (Bld)on 11-29 Erythrocyte distribution width (RBC) [Ratio] 14.9 % Normal 11.5-15.0 [facility] Comment on above: Order Comment: Speci men Type: BLOOD SPECIMENOrdering Facility: [facility] Address: [address] [place] [address] Performed By: #### 5 8410-2 ####[facility] LABIA [id number] [place] [address] [place] Hematocrit (Bld) [Volume fraction] 31.7 % Low 39.0-51.0 [facility] Comment on above: Order Comment: Speci men Type: BLOOD SPECIMENOrdering Facility: [facility] Address: [address] [place] [address] Performed By: #### 5 8410-2 ####[facility] LABIA [id number] [place] [address] [place] Hemoglobin (Bld) [Mass/Vol] 10.5 g/dL Low 13.0-17.0 [facility] Comment on above: Order Comment: Speci men Type: BLOOD SPECIMENOrdering Facility: [facility] Address: [address] [place] [address] Performed By: #### 5 8410-2 ####[facility] LABIA [id number] [place] [address] [place] MCH (RBC) [Entitic mass] 30.3 pg Normal 26.0-34.0 [facility] Comment on above: Order Comment: Speci men Type: BLOOD SPECIMENOrdering Facility: [facility] Address: [address] [place] [address] Performed By: #### 5 8410-2 ####[facility] LABIA [id number] [place] [address] [place] MCHC (RBC) [Mass/Vol] 33.1 g/dL Normal 30.5-36.0 [facility] Comment on above: Order Comment: Speci men Type: BLOOD SPECIMENOrdering Facility: [facility] Address: [address] [place] [address] Performed By: #### 5 8410-2 ####[facility] LABIA [id number] [place] [address] [place] MCV (RBC) [Entitic vol] 91.4 fL Normal 80.0-100.0 [facility] Comment on above: Order Comment: Speci men Type: BLOOD SPECIMENOrdering Facility: [facility] Address: [address] [place] [address] Performed By: #### 5 8410-2 ####[facility] LABCLIA [id number] [place] [address] [place] Nucleated RBC (Bld) [#/Vol] 10*3/uL Normal <0.01 [facility] Comment on above: Order Comment: Speci men Type: BLOOD SPECIMENOrdering Facility: [facility] Address: [address] [place] [address] Performed By: #### 5 8410-2 ####[facility] LABCLIA [id number] [place] [address] [place] Platelet mean volume (Bld) [Entitic vol] 10.5 fL Normal 9.0-12.7 [facility] Comment on above: Order Comment: Speci men Type: BLOOD SPECIMENOrdering Facility: [facility] Address: [address] [place] [address] Performed By: #### 5 8410-2 ####[facility] LABCLIA [id number] [place] [address] [place] Platelets (Bld) [#/Vol] 87 10*3/uL Low 150-400 [facility] Comment on above: Order Comment: Speci men Type: BLOOD SPECIMENOrdering Facility: [facility] Address: [address] [place] [address] Performed By: #### 5 8410-2 ####[facility] LABCLIA [id number] [place] [id number] [place] RBC (Bld) [#/Vol] 3.47 10*6/uL Low 4.20-6.00 [facility] Comment on above: Order Comment: Speci men Type: BLOOD SPECIMENOrdering Facility: [facility] Address: [address] [place] [address] Performed By: #### 5 8410-2 ####[facility] LABCLIA [id number] [place] [address] [place] WBC (Bld) [#/Vol] 4.89 10*3/uL Normal 3.70-11.00 [facility] Comment on above: Order Comment: Speci men Type: BLOOD SPECIMENOrdering Facility: [facility] Address: [address] [place] [address] Performed By: #### 5 8410-2 ####[facility] [id number] [place] [address] [place] CONSULT PROGon 11-29-2024 CONSULT PROG Normal [facility] Centromere Ab IF Ql (S)on Centromere Ab Qn (S) <0.2 Normal <1.0 [facility] Comment on above: Order Comment: Speci men Type: BLOOD SPECIMENOrdering Facility: [facility] Address: [address] [place] [address] Result Comment: Anti -centromere antibody is used as in aid in diagnosis of systemic sclerosis. Clinical correlation is required.Test Methodology: Multiplex flow immunoassay. Performed By: #### 3 2677-7, 74506-8, ANAIFR, 22545-0, 20217-3, 55695-8, 41591-2, 21110-0, 6457-6, 11505-0, 42972-2 ####[facility] [id number] [place] [id number] [place] CENTROMERE AB QUAL Negative Normal Negative [facility] Comment on above: Order Comment: Speci men Type: BLOOD SPECIMENOrdering Facility: [facility] Address: [address] [place] [address] Performed By: #### 3 2677-7, 75753-0, ANAIFR, 75406-0, 87374-9, 14143-7, 83749-6, 20652-1, 6457-6, 56279-3, 79824-4 ####[facility] [id number] [place] [address] [place] Chromatin Ab Qnon 11-29-2024 CHROMATIN AB QUAL Negative Normal Negative [facility] Comment on above: Order Comment: Speci men Type: BLOOD SPECIMENOrdering Facility: [facility] Address: [address] [place] [address] Performed By: #### 3 2677-7, 96101-1, ANAIFR, 18541-1, 10917-9, 50916-4, 44971-2, 58125-6, 6457-6, 68094-9, 50945-4 ####[facility] LABCLIA [id number] [place] [address] [place] Chromatin Ab SerPl-aCncon Chromatin Ab Qn <0.2 Normal <1.0 [facility] Comment on above: Order Comment: Speci men Type: BLOOD SPECIMENOrdering Facility: [facility] Address: [address] [place] [address] Result Comment: Test Methodology: Multiplex flow immunoassay. Performed By: #### 3 2677-7, 86508-0, ANAIFR, 22032-2, 30149-1, 12339-0, 51063-9, 61345-2, 6457-6, 53522-0, 51329-9 ####[facility] LABCLIA [id number] [place] [id number] [place] Comprehensive metabolic 2000 panelon 11-29-2024 Albumin [Mass/Vol] 3.3 g/dL Low 3.9-4.9 [facility] Comment on above: Order Comment: Speci men Type: BLOOD SPECIMENOrdering Facility: [facility] Address: [address] [place] [address] Performed By: #### 1 9123-9, 03734-4, 2777-1 ####[facility] LABCLIA [id number] [place] [address] [place] ALP [Catalytic activity/Vol] 64 U/L Normal 38-113 [facility] Comment on above: Order Comment: Speci men Type: BLOOD SPECIMENOrdering Facility: [facility] Address: [address] [place] [address] Performed By: #### 1 9123-9, 89277-1, 277- ####[facility] LABCLIA [id number] [place] [id number] [place] ALT [Catalytic activity/Vol] 19 U/L Normal 10-54 [facility] Comment on above: Order Comment: Speci men Type: BLOOD SPECIMENOrdering Facility: [facility] Address: [address] [place] [address] Performed By: #### 1 9123-9, 24825-1, 27703-20 ####[facility] LABCLIA [id number] [place] [address] [place] Anion gap [Moles/Vol] 8 mmol/L Normal 8-15 [facility] Comment on above: Order Comment: Speci men Type: BLOOD SPECIMENOrdering Facility: [facility] Address: [address] [place] [address] Performed By: #### 1 9123-9, 38428-3, 2776-09 ####[facility] LABIA [id number] [place] [address] [place] AST [Catalytic activity/Vol] 24 U/L Normal 14-40 [facility] Comment on above: Order Comment: Speci men Type: BLOOD SPECIMENOrdering Facility: [facility] Address: [address] [place], [place] [address] Performed By: #### 1 9123-9, 06887-9, 277- ####[facility] LABCLIA [id number] [place] [id number] [place] Bilirubin [Mass/Vol] 0.4 mg/dL Normal 0.2-1.3 [facility] Comment on above: Order Comment: Speci men Type: BLOOD SPECIMENOrdering Facility: [facility] Address: [address] [place], [place] [address] Performed By: #### 1 9123-9, 14691-1, 2777- ####[facility] LABCLIA [id number] [address] [address] [place] Calcium [Mass/Vol] 8.8 mg/dL Normal 8.5-10.2 [facility] Comment on above: Order Comment: Speci men Type: BLOOD SPECIMENOrdering Facility: [facility] Address: [address] [place] [address] Performed By: #### 1 9123-9, 04913-9, 27703-20 ####[facility] LABCLIA [id number] [place] [address] [place] Chloride [Moles/Vol] 103 mmol/L Normal 98-107 [facility] Comment on above: Order Comment: Speci men Type: BLOOD SPECIMENOrdering Facility: [facility] Address: [address] [place], [place] [address] Performed By: #### 1 9123-9, 45357-2, 27703-20 ####[facility] LABIA [id number] [place] [address] [place] CO2 [Moles/Vol] 26 mmol/L Normal 22-30 [facility] Comment on above: Order Comment: Speci men Type: BLOOD SPECIMENOrdering Facility: [facility] Address: [address] [place], [place] [address] Performed By: #### 1 9123-9, 59229-9, 277- ####[facility] LABIA [id number] [address] [address] [place] Creatinine [Mass/Vol] 1.59 mg/dL High 0.73-1.22 [facility] Comment on above: Order Comment: Speci men Type: BLOOD SPECIMENOrdering Facility: [facility] Address: [address] [place], [place] [address] Performed By: #### 1 9123-9, 53190-2, 2777-1 ####[facility] LABIA [id number] [place] [address] [place] Creatinine and Glomerular filtration rate.predicted panel (S/P/Bld) 43 mL/min/1.73m??? Low >=60 [facility] Comment on above: Order Comment: Ian lassiter Type: BLOOD SPECIMENOrdering Facility: [facility] Address: [address] [place] [address] Result Comment: Keara mated Glomerular Filtration Rate [...] actual GFR. Performed By: #### 1 9123-9, 22897-4, 277- ####[facility] LABIA [id number] [place] [address] [place] Glucose [Mass/Vol] 109 mg/dL High 74-99 [facility] Comment on above: Order Comment: Ian lassiter Type: BLOOD SPECIMENOrdering Facility: [facility] Address: [address] [place] [address] Result Comment: The [place] [employer] Association (ADA) provides guidance for cutoff [...] Standards of Medical Care in Diabetes 2016, [place] [employer]. Diabetes Care. 2016.39(Suppl 1). Performed By: #### 1 9123-9, 35398-6, 2776-09 ####[facility] LABCLIA [id number] [address] [address] [place] Potassium [Moles/Vol] 4.0 mmol/L Normal 3.7-5.1 [facility] Comment on above: Order Comment: Speci men Type: BLOOD SPECIMENOrdering Facility: [facility] Address: [address] [place] [address] Performed By: #### 1 9123-9, 08460-7, 2776-09 ####[facility] LABCLIA [id number] [place] [address] [place] Protein [Mass/Vol] 6.0 g/dL Low 6.3-8.0 [facility] Comment on above: Order Comment: Speci men Type: BLOOD SPECIMENOrdering Facility: [facility] Address: [address] [place] [address] Performed By: #### 1 9123-9, , 2776-09 ####[facility] LABCLIA [id number] [place] [address] [place] Sodium [Moles/Vol] 137 mmol/L Normal 136-144 [facility] Comment on above: Order Comment: Speci men Type: BLOOD SPECIMENOrdering Facility: [facility] Address: [address] [place], [place] [address] Performed By: #### 1 9123-9, , 2776-09 ####[facility] LABCLIA [id number] [address] [address] [place] Urea nitrogen [Mass/Vol] 39 mg/dL High 9-24 [facility] Comment on above: Order Comment: Speci men Type: BLOOD SPECIMENOrdering Facility: [facility] Address: [address] [place], [place] [address] Performed By: #### 1 9123-9, 55346-8, 2776- ####[facility] LABCLIA [id number] [place] [address] [place] DNA double strand Ab IA Qn ( S)on 11-29-2024 DNA ANTIBODY 543 IU/mL High <=200 [facility] Comment on above: Order Comment: Speci men Type: BLOOD SPECIMENOrdering Facility: [facility] Address: [address] [place] [address] Result Comment: Nega tive: <200 IU/mLEquivocal: 201-300 IU/mLModerate Positive: 301-800 IU/mLStrong Positive: >801 IU/mL Performed By: #### 3 2677-7, 92910-3, ANAIFR, 07962-6, 05224-6, 70196-9, 75979-1, 82866-7, 6457-6, 35089-8, 03032-8 ####[facility] [id number] [place] [address] [place] DNA ANTIBODY QUALITATIVE INTERPRETATION Positive Abnormal Negative [facility] Comment on above: Order Comment: Speci men Type: BLOOD SPECIMENOrdering Facility: [facility] Address: [address] [place] [address] Performed By: #### 3 2677-7, 45875-7, ANAIFR, 21470-9, 49890-0, 17546-5, 55012-4, 76096-7, 6457-6, 34634-8, 22929-5 ####[facility] LABIA [id number] [place] [address] [place] ECHO LIMITEDon 11-29-2024 ECHO LIMITED Normal [facility] SULEIMAN Jo1 Ab Ser-aCncon 2024 Keily-1 extractable nuclear Ab Qn (S) <0.2 Normal <1.0 [facility] Comment on above: Order Comment: Speci men Type: BLOOD SPECIMENOrdering Facility: [facility] Address: [address] [place] [address] Performed By: #### 3 2677-7, 80434-1, ANAIFR, 28781-4, 11224-3, 10626-0, 45812-1, 16871-4, 6457-6, 51360-8, 24841-0 ####[facility] LABIA [id number] [place] [address] [place] SULEIMAN SHANK SORTER Ab Ser-aCncon 2024 Ribonucleoprotein extractable nuclear Ab Qn (S) <0.2 Normal <1.0 [facility] Comment on above: Order Comment: Speci men Type: BLOOD SPECIMENOrdering Facility: [facility] Address: [address] [place] [address] Performed By: #### 3 2677-7, 47710-3, ANAIFR, 02030-7, 85744-7, 38664-3, 19201-9, 24056-1, 6457-6, 52924-4, 06223-5 ####[facility] [id number] [place] [address] [place] Ribonucleoprotein extractable nuclear Ab Qn (S) 0.4 AI Normal <1.0 [facility] Comment on above: Order Comment: Speci men Type: BLOOD SPECIMENOrdering Facility: [facility] Address: [address] [place] [address] Performed By: #### 3 2677-7, 61295-5, ANAIFR, 59828-2, 69642-7, 80504-8, 58850-0, 18564-3, 6457-6, 24756-6, 76153-9 ####[facility] [id number] [place] [address] [place] SULEIMAN SM IgG Ser-aCncon 2024 Dawkins extractable nuclear IgG Qn (S) <0.2 Normal <1.0 [facility] Comment on above: Order Comment: Speci men Type: BLOOD SPECIMENOrdering Facility: [facility] Address: [address] [place] [address] Performed By: #### 3 2677-7, 98112-6, ANAIFR, 23417-1, 86995-4, 54416-8, 91048-7, 87282-7, 6457-6, 64785-6, 34823-6 ####[facility] LABCLIA [id number] [place] [address] [place] SULEIMAN SS-A Ab Ser-aCncon 11-29 Sjogrens syndrome-A extractable nuclear Ab Qn (S) <0.2 Normal <1.0 [facility] Comment on above: Order Comment: Speci men Type: BLOOD SPECIMENOrdering Facility: [facility] Address: [address] [place] [address] Result Comment: Test Methodology: Multiplex flow immunoassay. Performed By: #### 3 2677-7, 82208-0, ANAIFR, 63926-5, 81468-9, 90417-9, 23697-7, 76483-1, 6457-6, 00213-2, 49630-8 ####[facility] [id number] [place] [address] [place] SULEIMAN SS-B Ab Ser-aCncon 11-29 Sjogrens syndrome-B extractable nuclear Ab Qn (S) <0.2 Normal <1.0 [facility] Comment on above: Order Comment: Speci men Type: BLOOD SPECIMENOrdering Facility: [facility] Address: [address] [place] [address] Result Comment: Anti -SSB (anti-La) antibody is used as an aid in diagnosis of a variety of systemic autoimmune diseases, especially for Sjogren's syndrome and systemic lupus erythematosus. Clinical correlation is required.Test Methodology: Multiplex flow immunoassay. Performed By: #### 3 2677-7, 95270-1, ANAIFR, 35792-8, 92415-9, 84191-2, 05791-3, 08692-9, 6457-6, 35129-2, 45199-4 ####[facility] LABCLIA [id number] [address] [place] HBV core Ab Ser Qlon 025 HBV core Ab Ql (S) Negative Normal Negative [facility] Comment on above: Order Comment: Speci maikol Type: BLOOD SPECIMENOrdering Facility: [facility] Address: [address] [place] [address] Result Comment: No e vidence of current or past infection with Hepatitis B virus. Should recent infection be suspected, repeat testing may be considered 3-4 weeks after this draw. Performed By: #### 1 6933-4, 20530-3, 5194-3 ####[facility] LABCLIA [id number] [address] HBV surface Ab Ql (S)on 11-18 HBV surface Ab Qn (S) <8.00 Normal [facility] Comment on above: Order Comment: Speci men Type: BLOOD SPECIMENOrdering Facility: [facility] Address: [address] [place] [address] Result Comment: <8 m IU/mL: No serological evidence of immunity to Hepatitis B Virus.>/= 8 to <12 mIU/mL: No serological evidence of immunity to Hepatitis B Virus.>/= 12 mIU/mL: Consistent with serological evidence of immunity to Hepatitis B Virus. Performed By: #### 1 6933-4, 70736-4, 5194-3 ####[facility] LABCLIA [id number] [address] [facility] HBV surface Ab Ser Qlon 11-18 HBV surface Ab Ql (S) Negative Normal [facility] Comment on above: Order Comment: Speci men Type: BLOOD SPECIMENOrdering Facility: [facility] Address: [address] [place] [address] Result Comment: No s erological evidence of immunity to Hepatitis B Virus. Performed By: #### 1 6933-4, 38308-3, 5194-3 ####[facility] LABCLIA [id number] [place] [address] [place] HBV surface Ag Ser Qlon 11-18 HBV surface Ag Ql (S) Negative Normal Negative [facility] Comment on above: Order Comment: Speci men Type: BLOOD SPECIMENOrdering Facility: [facility] Address: [address] [place] [address] Performed By: #### 1 6933-4, 02715-5, 5195-3 ####[facility] LABIA [id number] [place] [address] [place] HCV Ab Ser Qlon 11-29-2024 HCV Ab Ql (S) Negative Normal Negative [facility] Comment on above: Order Comment: Speci men Type: BLOOD SPECIMENOrdering Facility: [facility] Address: [address] [place] [address] Result Comment: The result suggests no evidence of active infection with Hepatitis C virus. Should recent infection be suspected, repeat testing may be considered 4-6 weeks after this draw. Performed By: #### 1 6128-1 ####[facility] LABIA [id number] [place] [address] [place] HIGH SENSITIVITY TROPONIN To n 11-29-2024 Troponin T.cardiac High sensitivity method [Mass/Vol] 129 ng/L High <12 [facility] Comment on above: Order Comment: Speci men Type: BLOOD SPECIMENOrdering Facility: [facility] Address: [address] [place] [address] Performed By: #### H STNT ####[facility] [id number] [place] [address] [place] Keily-1 extractable nuclear Ab Qn (S)on 11-29-2024 KEILY 1 ANTIBODY QUAL Negative Normal Negative [facility] Comment on above: Order Comment: Speci men Type: BLOOD SPECIMENOrdering Facility: [facility] Address: [address] [place] [address] Result Comment: Anti -KEILY-1 antibody is used as an aid in diagnosis of polymyositis and dermatomyositis especially with pulmonary involvement. A negative result cannot rule out polymyositis or dermatomyositis. Clinical correlation is required.Test Methodology: Multiplex flow immunoassay. Performed By: #### 3 2677-7, 29278-6, ANAIFR, 14132-4, 84214-9, 42086-6, 16324-1, 01090-1, 6457-6, 42682-0, 02125-4 ####[facility] [id number] [place] [address] [place] Magnesium SerPl-ncon 11-29 Magnesium [Mass/Vol] 2.3 mg/dL Normal 1.7-2.3 [facility] Comment on above: Order Comment: Speci men Type: BLOOD SPECIMENOrdering Facility: [facility] Address: [address] [place] [address] Performed By: #### 1 9123-9, 63199-2, 2777-1 ####[facility] [id number] [place] [address] [place] Phosphate SerPl-mCncon 11-29 Phosphate [Mass/Vol] 3.3 mg/dL Normal 2.7-4.8 [facility] Comment on above: Order Comment: Nahuni maikol Type: BLOOD SPECIMENOrdering Facility: [facility] Address: [address] [place] [address] Performed By: #### 1 9123-9, 44729-6, 2777-1 ####[facility] [id number] [place] [address] [place] Ribonucleoprotein extractabl e nuclear Ab Qn (S)on 11-29-2024 ANTI-SHANK SORTER QUAL Negative Normal Negative [facility] Comment on above: Order Comment: Speci men Type: BLOOD SPECIMENOrdering Facility: [facility] Address: [address] [place] [address] Performed By: #### 3 2677-7, 64102-6, ANAIFR, 60597-3, 63139-1, 58720-4, 07608-6, 98765-9, 6457-6, 46974-9, 29526-1 ####[facility] [id number] [address] [address] [place] RIBOSOMAL SHANK SORTER QUAL Negative Normal Negative [facility] Comment on above: Order Comment: Speci men Type: BLOOD SPECIMENOrdering Facility: [facility] Address: [address] [place], [place] [address] Result Comment: Anti -Ribosomal RNA (Ribosomal P) antibody is used as an aid in diagnosis of systemic autoimmune diseases especially systemic lupus erythematosus and mixed connective tissue disease. Cross-reactivity with Anti-dawkins antibody is not uncommon. Clinical correlation is required.Test Methodology: Multiplex flow immunoassay. Performed By: #### 3 2677-7, 04018-0, ANAIFR, 62724-3, 79558-5, 39490-1, 38920-5, 61522-6, 6457-6, 38608-7, 27895-9 ####[facility] [id number] [address] [place] [address] [place] SCL-70 extractable nuclear I gG IA Qn (S)on 11-29-2024 SCLERODERMA AB QUAL Negative Normal Negative [facility] Comment on above: Order Comment: Speci men Type: BLOOD SPECIMENOrdering Facility: [facility] Address: [address] [place] [address] Performed By: #### 3 2677-7, 84014-5, ANAIFR, 73076-1, 33491-8, 58506-4, 01260-5, 69881-3, 6457-6, 76967-4, 41671-2 ####[facility] [id number] [address] [address] [place] SCLERODERMA IGG AB <0.2 Normal <1.0 [facility] Comment on above: Order Comment: Speci men Type: BLOOD SPECIMENOrdering Facility: [facility] Address: [address] [place] [address] Result Comment: Scl- 70/Scleroderma antibody test is used as an aid in diagnosis of systemic sclerosis especially the diffuse cutaneous form. A negative result cannot rule out systemic sclerosis. The final interpretation should consider clinical picture and other test results such as anti-centromere antibody. Test Methodology: Multiplex flow immunoassay. Performed By: #### 3 2677-7, 13316-7, ANAIFR, 67509-4, 18966-5, 55942-4, 43062-9, 78102-6, 6457-6, 84327-6, 28885-6 ####[facility] LABIA [id number] [address] [place] [address] [facility] Sjogrens syndrome-A extracta ble nuclear Ab Qn (S)on 11-29-2024 SSA ANTIBODY QUAL Negative Normal Negative [facility] Comment on above: Order Comment: Speci men Type: BLOOD SPECIMENOrdering Facility: [facility] Address: [address] [place] [address] Performed By: #### 3 2677-7, 43655-5, ANAIFR, 53010-6, 92671-7, 18238-0, 12524-1, 29665-0, 6457-6, 42216-4, 68371-9 ####[facility] LABIA [id number] [address] [place] [address] [facility] Sjogrens syndrome-B extracta ble nuclear Ab Qn (S)on 11-29-2024 SSB ANTIBODY QUAL Negative Normal Negative [facility] Comment on above: Order Comment: Speci men Type: BLOOD SPECIMENOrdering Facility: [facility] Address: [address] [place] [address] Performed By: #### 3 2677-7, 17213-4, ANAIFR, 03494-6, 71987-9, 39771-8, 89137-2, 49883-9, 6457-6, 31936-3, 65496-1 ####[facility] LABCLIA [id number] [address] [place] [address] [place] Dawkins extractable nuclear Ig G Qn (S)on 11-29-2024 SM ANTIBODY QUAL Negative Normal Negative [facility] Comment on above: Order Comment: Speci men Type: BLOOD SPECIMENOrdering Facility: [facility] Address: [address] [place] [address] Result Comment: Anti -Sm (Dawkins) antibody is used as an aid in diagnosis of systemic lupus erythematosus and its presence is associated with renal disease. A negative result cannot rule out systemic lupus erythematosus. Clinical correlation is required.Test Methodology: Multiplex flow immunoassay. Performed By: #### 3 2677-7, 27124-4, ANAIFR, 84556-8, 36098-2, 68981-7, 97845-2, 23866-4, 6457-6, 94009-5, 94660-7 ####[facility] LABCLIA [id number] [place] [address] [place] Urinalysis complete panel (U )on 11-29-2024 Bacteria LM.HPF (Urine sed) [#/Area] Negative Normal Negative [facility] Comment on above: Order Comment: Speci men Type: URINE SPECIMENOrdering Facility: [facility] Address: [address] [place] [address] Performed By: #### 2 4356-8 ####[facility] LABCLIA [id number] [place] [address] [place] Bilirubin Ql (U) Negative Normal Negative [facility] Comment on above: Order Comment: Speci men Type: URINE SPECIMENOrdering Facility: [facility] Address: [address] [place] [address] Performed By: #### 2 4356-8 ####[facility] LABCLIA [id number] [place] [address] [place] Clarity (Unsp spec) Clear Normal Clear [facility] Comment on above: Order Comment: Speci men Type: URINE SPECIMENOrdering Facility: [facility] Address: [address] [place] [address] Performed By: #### 2 4356-8 ####[facility] LABCLIA [id number] [place] [address] [place] Color (U) Yellow Normal Yellow [facility] Comment on above: Order Comment: Speci men Type: URINE SPECIMENOrdering Facility: [facility] Address: [address] [place] [address] Performed By: #### 2 4356-8 ####[facility] LABCLIA [id number] [address], [place] [address] [place] Epithelial cells LM.HPF (Urine sed) [#/Area] None Seen Normal [facility] Comment on above: Order Comment: Speci men Type: URINE SPECIMENOrdering Facility: [facility] Address: [address] [place] [address] Performed By: #### 2 4356-8 ####[facility] LABCLIA [id number] [address] [place] Glucose Test strip (U) [Mass/Vol] Negative Normal Negative [facility] Comment on above: Order Comment: Speci men Type: URINE SPECIMENOrdering Facility: [facility] Address: [address] [place] [address] Performed By: #### 2 4356-8 ####[facility] LABCLIA [id number] [place] [address] [place] Hemoglobin Ql (U) Negative Normal Negative [facility] Comment on above: Order Comment: Speci men Type: URINE SPECIMENOrdering Facility: [facility] Address: [address] [place] [address] Performed By: #### 2 4356-8 ####[facility] LABCLIA [id number] [place] [address] [place] Hyaline casts (Urine sed) [#/Area] 0 /[LPF] Normal 0 /LPF [facility] Comment on above: Order Comment: Speci men Type: URINE SPECIMENOrdering Facility: [facility] Address: [address] [place] [address] Performed By: #### 2 4356-8 ####[facility] LABCLIA [id number] [address] [place] [address] [place] Ketones Ql (U) Negative Normal Negative [facility] Comment on above: Order Comment: Speci men Type: URINE SPECIMENOrdering Facility: [facility] Address: [address] [place] [address] Performed By: #### 2 4356-8 ####[facility] LABCLIA [id number] [place] [address] [place] Leukocyte esterase Test strip Ql (U) Negative Normal Negative [facility] Comment on above: Order Comment: Speci men Type: URINE SPECIMENOrdering Facility: [facility] Address: [address] [place] [address] Performed By: #### 2 4356-8 ####[facility] LABCLIA [id number] [address], [facility]95 [place] Nitrite Ql (U) Negative Normal Negative [facility] Comment on above: Order Comment: Speci men Type: URINE SPECIMENOrdering Facility: [facility] Address: [address] [place] [address] Performed By: #### 2 4356-8 ####[facility] LABCLIA [id number] [address], [facility]95 [place] pH (U) 6.0 [pH] Normal <8.5 [facility] Comment on above: Order Comment: Speci men Type: URINE SPECIMENOrdering Facility: [facility] Address: [address] [place] [address] Performed By: #### 2 4356-8 ####[facility] LABCLIA [id number] [address], [facility]95 [place] Protein (U) [Mass/Vol] Trace Abnormal Negative [facility] Comment on above: Order Comment: Speci men Type: URINE SPECIMENOrdering Facility: [facility] Address: [address] [place] [address] Performed By: #### 2 4356-8 ####[facility] [id number] [place] [address] [place] RBC LM.HPF (Urine sed) [#/Area] 0-2 /HPF Normal 0-2 /HPF [facility] Comment on above: Order Comment: Speci men Type: URINE SPECIMENOrdering Facility: [facility] Address: [address] [place] [address] Performed By: #### 2 4356-8 ####[facility] [id number] [place] [address] [place] Specific gravity (U) [Rel density] 1.034 High 1.005-1.030 [facility] Comment on above: Order Comment: Speci men Type: URINE SPECIMENOrdering Facility: [facility] Address: [address] [place] [address] Performed By: #### 2 4356-8 ####[facility] [id number] [address] [place] Urobilinogen Ql (U) 0.2 EU/dL Normal 0.2-1.0 EU/dL [facility] Comment on above: Order Comment: Speci men Type: URINE SPECIMENOrdering Facility: [facility] Address: [address] [place] [address] Performed By: #### 2 4356-8 ####[facility] [id number] [place] [address] [place] WBC LM.HPF (Urine sed) [#/Area] 0-5 /HPF Normal 0-5 /HPF [facility] Comment on above: Order Comment: Speci men Type: URINE SPECIMENOrdering Facility: [facility] Address: [address] [place] [address] Performed By: #### 2 4356-8 ####[facility] LABIA [id number] [place] [address] [place] XR ABDOMEN 1V SUPINEon 11-29 XR ABDOMEN 1V SUPINE Normal [facility] dsDNA Ab Ser Ql CLIFon 11-29 DNA double strand Ab IF Crithidia luciliae Ql (S) Negative Normal Negative [facility] Comment on above: Order Comment: Speci men Type: BLOOD SPECIMENOrdering Facility: [facility] Address: [address] [place] [address] Result Comment: Crit hidia luciliae assay is used as an aid in diagnosis of systemic lupus erythematosus (SLE). A negative result cannot rule out SLE. Low positive titers may be seen with other systemic autoimmune diseases. Clinical correlation is required. Performed By: #### 3 2677-7, 00370-2, ANAIFR, 01583-1, 36967-9, 16369-1, 64073-0, 59056-6, 6457-6, 22415-1, 49955-4 ####[facility] [facility] LABCLIA [id number] [place] [address] [place] 12 Lead EKGon 11-28-2024 12 Lead EKG Normal [facility] Abdomen/Pelvis W IV Cont ONL Yon 11-28-2024 Abdomen/Pelvis W IV Cont ONLY Normal [facility] Absolute lymphocyte countOrd ered By: Nate Gray on 11-28-2024 Lymphocytes Auto (Unsp spec) [#/Vol] 0.86 10*3/uL 0.83-4.51 [facility] Absolute neutrophil countOrd ered By: Nate Gray on 11-28-2024 Neutrophils (Bld) [#/Vol] 3.6 10*3/uL 2.0-7.7 [facility] Anion gap in Serum or Plasma Ordered By: Nate Gray on 11-28-2024 Anion gap [Moles/Vol] 13 mmol/L 5-15 [facility] Automated lymphocyte count a s percentage of total leukocytesOrdered By: Nate Gray on 11-28-2024 Lymphocytes/100 WBC Auto (Unsp spec) 17.0 % Low 19-41 [facility] BUN/creatinine ratioOrdered By: Nate Gray on 11-28-2024 Urea nitrogen/Creatinine [Mass ratio] 26.9 mg/mg High 10-20 [facility] Bacteria Bld Culton 11-29-19 25 Bacteria identified Cx Nom (Bld) CULTURE, BLOOD: No growth 5 days Normal [facility] Comment on above: Performed By: #### 6 00-7 ####[facility] LABCLIA [id number] [address] OF [place] Bacteria identified Cx Nom (Bld) CULTURE, BLOOD: No growth 5 days Normal [facility] Comment on above: Performed By: #### 6 00-7 ####[facility] LABCLIA [id number] [address] OF [facility] Basophil percentageOrdered B y: Nate Gray on 11-28-2024 Basophils/100 WBC (Bld) 0.6 % 0-1 [facility] Bilirubin Test strip Ql (U)O rdered By: Nate Gray on 11-28-2024 Bilirubin Ql (U) Negative Negative [facility] Bilirubin, totalOrdered By: Nate Gray on 11-28-2024 Bilirubin [Mass/Vol] 0.47 mg/dL 0.00-1.30 [facility] Blood manual differential co mment interpretation (narrative result)Ordered By: Nate Gray on 11-28-2024 Manual differential comment Juvenal (Bld) [Interp] SEE COMMENT [facility] Comment on above: THROMBOCYTOPENIA NOT ED CBC W/Diff, Automatedon 11-18 Anisocytosis Ql (Bld) RARE Normal [facility] Comment on above: Performed By: #### L 500.4050, L501.2450, L100.0100, BTS ####[facility] [address] [place], [place], [id number] MACROCYTOSIS RARE Normal [facility] Comment on above: Performed By: #### L 500.4050, L501.2450, L100.0100, BTS ####[facility] [address] [place], [address] PLT EST MOD DEC Normal ADEQ [facility] Comment on above: Performed By: #### L 500.4050, L501.2450, L100.0100, BTS ####[facility] [address] [place], [address] RED CELL MORPH N CHROM Normal NORM C C [facility] Comment on above: Performed By: #### L 500.4050, L501.2450, L100.0100, BTS ####[facility] [address] [place], [address] SMEAR COMMENT SEE COMMENT Normal [facility] Comment on above: Result Comment: THRO MBOCYTOPENIA NOTED Performed By: #### L 500.4050, L501.2450, L100.0100, BTS ####[facility] [address] [place], [address] CBC panel Auto (Bld)on 11-28 Erythrocyte distribution width (RBC) [Ratio] 14.9 % Normal 11.5-15.0 [facility] Comment on above: Order Comment: Speci men Type: BLOOD SPECIMENOrdering Facility: [facility] Address: [address] [place] [address] Performed By: #### 3 1201-7, 04918-0 ####[facility] LABCLIA [id number] [address] [address] [place] Hematocrit (Bld) [Volume fraction] 33.6 % Low 39.0-51.0 [facility] Comment on above: Order Comment: Speci men Type: BLOOD SPECIMENOrdering Facility: [facility] Address: [address] [place] [address] Performed By: #### 3 1201-7, 64815-7 ####[facility] LABCLIA [id number] [place] [address] [place] Hemoglobin (Bld) [Mass/Vol] 11.0 g/dL Low 13.0-17.0 [facility] Comment on above: Order Comment: Speci men Type: BLOOD SPECIMENOrdering Facility: [facility] Address: [address] [place] [address] Performed By: #### 3 1201-7, 10456-2 ####[facility] LABIA [id number] [place] [address] [place] MCH (RBC) [Entitic mass] 30.0 pg Normal 26.0-34.0 [facility] Comment on above: Order Comment: Speci men Type: BLOOD SPECIMENOrdering Facility: [facility] Address: [address] [place] [address] Performed By: #### 3 1201-7, 21896-8 ####[facility] [id number] [place] [address] [place] MCHC (RBC) [Mass/Vol] 32.7 g/dL Normal 30.5-36.0 [facility] Comment on above: Order Comment: Speci men Type: BLOOD SPECIMENOrdering Facility: [facility] Address: [address] [place] [address] Performed By: #### 3 1201-7, 08283-1 ####[facility] LABIA [id number] [place] [address] [place] MCV (RBC) [Entitic vol] 91.6 fL Normal 80.0-100.0 [facility] Comment on above: Order Comment: Speci men Type: BLOOD SPECIMENOrdering Facility: [facility] Address: [address] [place] [address] Performed By: #### 3 1201-7, 43680-1 ####[facility] LABIA [id number] [address] [place] [address] [place] Nucleated RBC (Bld) [#/Vol] 10*3/uL Normal <0.01 [facility] Comment on above: Order Comment: Speci men Type: BLOOD SPECIMENOrdering Facility: [facility] Address: [address] [place] [address] Performed By: #### 3 1201-7, 78835-1 ####[facility] LABCLIA [id number] [place] [address] [place] Platelet mean volume (Bld) [Entitic vol] 10.2 fL Normal 9.0-12.7 [facility] Comment on above: Order Comment: Speci men Type: BLOOD SPECIMENOrdering Facility: [facility] Address: [address] [place] [address] Performed By: #### 3 1201-7, 50285-5 ####[facility] LABCLIA [id number] [place] [address] [place] Platelets (Bld) [#/Vol] 85 10*3/uL Low 150-400 [facility] Comment on above: Order Comment: Speci men Type: BLOOD SPECIMENOrdering Facility: [facility] Address: [address] [place] [address] Performed By: #### 3 1201-7, 12011-5 ####[facility] LABIA [id number] [place] [address] [place] RBC (Bld) [#/Vol] 3.67 10*6/uL Low 4.20-6.00 [facility] Comment on above: Order Comment: Speci men Type: BLOOD SPECIMENOrdering Facility: [facility] Address: [address] [place] [address] Performed By: #### 3 1201-7, 63541-0 ####[facility] LABCLIA [id number] [place] [address] [place] WBC (Bld) [#/Vol] 4.84 10*3/uL Normal 3.70-11.00 [facility] Comment on above: Order Comment: Speci men Type: BLOOD SPECIMENOrdering Facility: [facility] Address: [address] [place] [address] Performed By: #### 3 1201-7, 71200-8 ####[facility] LABCLIA [id number] [place] [address] [place] CNCRITCRon 11-28-2024 CNCRITCR Normal [facility] CNPNon 11-28-2024 CNPN Normal [facility] CONFIRM BLOOD TYPEon 025 ABO O Normal [facility] Comment on above: Order Comment: Speci men Type: BLOOD SPECIMENOrdering Facility: [facility] Address: [address] [place] [address] Performed By: #### C ONABO ####[facility] BLOOD BANKCLIA [id number] [place] [address] [place] Rh Nom (Bld) Negative Normal [facility] Comment on above: Order Comment: Speci men Type: BLOOD SPECIMENOrdering Facility: [facility] Address: [address] [place] [address] Performed By: #### C ONABO ####[facility] BLOOD BANKCLIA [id number] [place] [address] [place] ABD/PEL W IVCONon 025 CT ABD/PEL W IVCON Normal [facility] CT Abdomen and Pelvis W cont rast Adina 11-28-2024 IMPRESSION: 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 There has been interval enlargement of the [place] lumen consistent with a hemodynamically significant leak. Enlargement pancreatic cystic mass. When condition permits suggest correlation with contrast enhanced pancreatic MRI. Diverticulosis Urinary bladder diverticulum. [employer] Associate: NATALY Transcribe Date/Time: Nov 28 2024 4:21P Dictated by : TONE GA MD This examination was interpreted and the report reviewed and electronically signed by: TONE GA MD on Nov 28 2024 4:40PM [facility] DIVISION OF RADIOLOGY * * *Final Report* * * DATE OF EXAM: Nov 28 2024 3:49PM [facility] 0530 - CT ABD/PEL W IVCON [...] endoluminal stenting. The maximal diameter of the [place] abdominal aorta is 6.0 x 6.0 cm. This is enlarged from prior dimensions of 5.4 x 5.6 cm. There is irregular contrast enhancement in the LEFT side of the [place] lumen similar to prior study. The enhancement [...] Unremarkable. DIVISION OF RADIOLOGY Provider, Yamila Inocente [facility] - 11/28/2024 * * *Final Report* * * DATE OF EXAM: Nov 28 2024 3:49PM [facility] 0530 - CT ABD/PEL W IVCON [...] endoluminal stenting. The maximal diameter of the [place] abdominal aorta is 6.0 x 6.0 cm. This is enlarged from prior dimensions of 5.4 x 5.6 cm. There is irregular contrast enhancement in the LEFT side of the [place] lumen similar to prior study. The enhancement [...] There has been interval enlargement of the [place] lumen consistent with a hemodynamically significant leak. Enlargement pancreatic cystic mass. When condition permits suggest correlation with contrast enhanced pancreatic MRI. Diverticulosis Urinary bladder diverticulum. [employer] Associate: [facility] Transcribe Date/Time: Nov 28 2024 4:21P Dictated by : TONE GA MD This examination was interpreted and the report reviewed and electronically signed by: TONE GA MD on Nov 28 2024 4:40PM EST [facility] Radiology Study observation (narrative) [facility] CT Abdomen and Pelvis W cont rast IVOrdered By: Ccf Provider on 11-28-2024 [facility] Carbon dioxide, total [Moles /volume] in Central venous bloodOrdered By: Nate Gray on 11-28-2024 CO2 [Moles/Vol] 24.5 mmol/L 21.0-32.0 [facility] Chloride assayOrdered By: Emory Gray on 11-28-2024 Chloride [Moles/Vol] 99 mmol/L 98-108 [facility] Comprehensive Metabolic Prof ilon 11-28-2024 Albumin [Mass/Vol] 4.0 g/dL Normal 3.4-4.8 [facility] Comment on above: Performed By: #### L 500.4050, L501.2450, L100.0100, BTS ####[facility] [address] [place], [address] Albumin/Globulin [Mass ratio] 1.3 {ratio} Normal 0.9-2.4 [facility] Comment on above: Performed By: #### L 500.4050, L501.2450, L100.0100, BTS ####[facility] [address] [place], [address] ALK PHOS 66 U/L Normal 40-129 [facility] Comment on above: Performed By: #### L 500.4050, L501.2450, L100.0100, BTS ####[facility] [address] [place], [address] ALT [Catalytic activity/Vol] 24 U/L Normal <=46 [facility] Comment on above: Performed By: #### L 500.4050, L501.2450, L100.0100, BTS ####[facility] [address] [place], [address] AST [Catalytic activity/Vol] 33 U/L Normal <=37 [facility] Comment on above: Performed By: #### L 500.4050, L501.2450, L100.0100, BTS ####[facility] [address] [place], [address] Bilirubin [Mass/Vol] 0.47 mg/dL Normal 0.00-1.30 [facility] Comment on above: Performed By: #### L 500.4050, L501.2450, L100.0100, BTS ####[facility] [address] [place], [address] BUN/CRE 26.9 RATIO High 10-20 [facility] Comment on above: Performed By: #### L 500.4050, L501.2450, L100.0100, BTS ####[facility] [address] [place], [address] Calcium [Mass/Vol] 9.4 mg/dL Normal 7.6-11.0 [facility] Comment on above: Performed By: #### L 500.4050, L501.2450, L100.0100, BTS ####[facility] [address] [place], [address] Chloride [Moles/Vol] 99 mmol/L Normal 98-108 [facility] Comment on above: Performed By: #### L 500.4050, L501.2450, L100.0100, BTS ####[facility] [address] [place], [address] CO2 [Moles/Vol] 24.5 mmol/L Normal 21.0-32.0 [facility] Comment on above: Performed By: #### L 500.4050, L501.2450, L100.0100, BTS ####[facility] [address] [place], [address] Creatinine [Mass/Vol] 1.43 mg/dL High 0.70-1.20 [facility] Comment on above: Performed By: #### L 500.4050, L501.2450, L100.0100, BTS ####[facility] [address] [place], [address] ECRCL 37.20 ml/min Low 50-250 [facility] Comment on above: Performed By: #### L 500.4050, L501.2450, L100.0100, BTS ####[facility] [address] [place], [address] GAP 13 Normal 5-15 [facility] Comment on above: Performed By: #### L 500.4050, L501.2450, L100.0100, BTS ####[facility] [address] [place], [address] GFR/1.73 sq M.predicted among non-blacks MDRD (S/P/Bld) [Vol rate/Area] 48 mL/min/{1.73_m2} Low >60 [facility] Comment on above: Result Comment: mL/m in/1.73m2 CKD-EPI Creatinine Equation (2020) Performed By: #### L 500.4050, L501.2450, L100.0100, BTS ####[facility] [address] [place], [address] Globulin (S) [Mass/Vol] 3.2 g/dL Normal 2.2-4.2 [facility] Comment on above: Performed By: #### L 500.4050, L501.2450, L100.0100, BTS ####[facility] [address] [place], [address] Glucose [Mass/Vol] 140 mg/dL High 70-99 [facility] Comment on above: Performed By: #### L 500.4050, L501.2450, L100.0100, BTS ####[facility] [address] [place], [address] Potassium [Moles/Vol] 4.0 mmol/L Normal 3.3-5.1 [facility] Comment on above: Performed By: #### L 500.4050, L501.2450, L100.0100, BTS ####[facility] [address] [place], [address] Sodium [Moles/Vol] 137 mmol/L Normal 133-145 [facility] Comment on above: Performed By: #### L 500.4050, L501.2450, L100.0100, BTS ####[facility] [address] [place], [address] T PROT 7.2 g/dL Normal 5.9-8.4 [facility] Comment on above: Performed By: #### L 500.4050, L501.2450, L100.0100, BTS ####[facility] [address] [place], [address] Urea nitrogen [Mass/Vol] 39 mg/dL High 4-19 [facility] Comment on above: Performed By: #### L 500.4050, L501.2450, L100.0100, BTS ####[facility] [address] [place], [address] Comprehensive metabolic 2000 panelon 11-28-2024 Albumin [Mass/Vol] 3.6 g/dL Low 3.9-4.9 [facility] Comment on above: Order Comment: Speci men Type: BLOOD SPECIMENOrdering Facility: [facility] Address: [address] [place] [address] Performed By: #### 3 016-3, 23650-1, HSTNT, 3023-7 ####[facility] [id number] [address] [address] [place] ALP [Catalytic activity/Vol] 66 U/L Normal 38-113 [facility] Comment on above: Order Comment: Speci men Type: BLOOD SPECIMENOrdering Facility: [facility] Address: [address] [place] [address] Performed By: #### 3 016-3, 38314-0, HSTNT, 3023-7 ####[facility] LABIA [id number] [address] [address] [place] ALT [Catalytic activity/Vol] 21 U/L Normal 10-54 [facility] Comment on above: Order Comment: Speci men Type: BLOOD SPECIMENOrdering Facility: [facility] Address: [address] [place] [address] Performed By: #### 3 016-3, 24855-8, HSTNT, 302-7 ####[facility] LABCLIA [id number] [address] [address] [place] Anion gap [Moles/Vol] 10 mmol/L Normal 8-15 [facility] Comment on above: Order Comment: Speci men Type: BLOOD SPECIMENOrdering Facility: [facility] Address: [address] [place] [address] Performed By: #### 3 016-3, 46481-6, HSTNT, 7 ####[facility] LABCLIA [id number] [address] [address] [place] AST [Catalytic activity/Vol] 24 U/L Normal 14-40 [facility] Comment on above: Order Comment: Speci men Type: BLOOD SPECIMENOrdering Facility: [facility] Address: [address] [place] [address] Performed By: #### 3 016-3, 39416-7, HSTNT, 7 ####[facility] LABCLIA [id number] [address] [address] [place] Bilirubin [Mass/Vol] 0.3 mg/dL Normal 0.2-1.3 [facility] Comment on above: Order Comment: Speci men Type: BLOOD SPECIMENOrdering Facility: [facility] Address: [address] [place], [place] [address] Performed By: #### 3 016-3, 65121-8, HSTNT, 7 ####[facility] LABCLIA [id number] [address] [address] [place] Calcium [Mass/Vol] 8.8 mg/dL Normal 8.5-10.2 [facility] Comment on above: Order Comment: Speci men Type: BLOOD SPECIMENOrdering Facility: [facility] Address: [address] [place], [place] [address] Performed By: #### 3 016-3, 18847-5, HSTNT, 3023-7 ####[facility] LABCLIA [id number] [address] [address] [place] Chloride [Moles/Vol] 102 mmol/L Normal 98-107 [facility] Comment on above: Order Comment: Speci men Type: BLOOD SPECIMENOrdering Facility: [facility] Address: [address] [place] [address] Performed By: #### 3 016-3, 92740-3, HSTNT, 3024-7 ####[facility] LABIA [id number] [place] [address] [place] CO2 [Moles/Vol] 26 mmol/L Normal 22-30 [facility] Comment on above: Order Comment: Speci men Type: BLOOD SPECIMENOrdering Facility: [facility] Address: [address] [place] [address] Performed By: #### 3 016-3, 27228-8, HSTNT, 3024-7 ####[facility] LABIA [id number] [place] [address] [place] Creatinine [Mass/Vol] 1.56 mg/dL High 0.73-1.22 [facility] Comment on above: Order Comment: Speci men Type: BLOOD SPECIMENOrdering Facility: [facility] Address: [address] [place] [address] Performed By: #### 3 016-3, 61663-3, HSTNT, 3024-7 ####[facility] LABIA [id number] [place] [address] [place] Creatinine and Glomerular filtration rate.predicted panel (S/P/Bld) 44 mL/min/1.73m??? Low >=60 [facility] Comment on above: Order Comment: Speci men Type: BLOOD SPECIMENOrdering Facility: [facility] Address: [address] [place] [address] Result Comment: [place] mated Glomerular Filtration Rate [...] actual GFR. Performed By: #### 3 016-3, 69368-0, HSTNT, 3023-7 ####[facility] LABCLIA [id number] [address] [address] [place] Glucose [Mass/Vol] 120 mg/dL High 74-99 [facility] Comment on above: Order Comment: Speci men Type: BLOOD SPECIMENOrdering Facility: [facility] Address: [address] [place] [address] Result Comment: The [place] [employer] (ADA) provides guidance for cutoff [...] Standards of Medical Care in Diabetes 2016, [place] [employer]. Diabetes Care. 2016.39(Suppl 1). Performed By: #### 3 016-3, 26085-0, HSTNT, 3024-03 ####[facility] LABCLIA [id number] [address] [address] [place] Protein [Mass/Vol] 6.3 g/dL Normal 6.3-8.0 [facility] Comment on above: Order Comment: [place] men Type: BLOOD SPECIMENOrdering Facility: [facility] Address: [address] [place] [address] Performed By: #### 3 016-3, 65412-3, HSTNT, 3023-7 ####[facility] LABCLIA [id number] [place] [address] [place] Sodium [Moles/Vol] 138 mmol/L Normal 136-144 [facility] Comment on above: Order Comment: Speci men Type: BLOOD SPECIMENOrdering Facility: [facility] Address: [address] [place] [address] Performed By: #### 3 016-3, 38191-8, HSTNT, 3024-7 ####[facility] LABCLIA [id number] [place] [address] [place] Urea nitrogen [Mass/Vol] 41 mg/dL High 9-24 [facility] Comment on above: Order Comment: Speci men Type: BLOOD SPECIMENOrdering Facility: [facility] Address: [address] [place] [address] Performed By: #### 3 016-3, 03642-8, HSTNT, 3024-7 ####[facility] LABCLIA [id number] [place] [id number] [place] ECG COMPLETEon 11-28-2024 ECG COMPLETE Normal [facility] ECHO LIMITEDon 11-28-2024 ECHO LIMITED Normal [facility] Emergency Department Summary on 11-28-2024 Emergency Department Summary Normal [facility] Eosinophil percentageOrdered By: Nate Gray on 11-28-2024 Eosinophils/100 WBC (Bld) 1.6 % 0-5 [facility] Epithelial cells.squamous LM Ql (Urine sed)Ordered By: Nate Gray on 11-28-2024 Epithelial cells.squamous LM.HPF (Urine sed) [#/Area] 0 /[HPF] 0-5 [facility] Erythrocyte distribution wid th ratioOrdered By: Nate Gray on 11-28-2024 Erythrocyte distribution width (RBC) [Ratio] 14.9 % High 11.6-14.6 [facility] Erythrocyte distribution wid th standard deviationOrdered By: Nate Gray on 11-28-2024 Erythrocyte distribution width (RBC) [Entitic vol] 51.1 fL High 35.1-43.9 [facility] Erythrocyte distribution width (RBC) [Ratio] 51.1 fl High 35.1-43.9 [facility] Erythrocyte morphology asses smentOrdered By: Nate Gray on 11-28-2024 RBC morphology finding Nom (Bld) N CHROM NORMAL NORM C&C [facility] Estimation of creatinine maira aranceOrdered By: Nate Gray on 11-28-2024 Estimated Creatinine Clearance Calc 37.20 ml/min Low 50-250 [facility] GFR/1.73 sq M.predicted gabi g non-blacks MDRD (S/P/Bld) [Vol rate/Area]Ordered By: Nate Gray on 11-28-2024 Estimated GFR (MDRD) Non-Af Amer 48 Low >60 [facility] Comment on above: mL/min/1.73m2 CKD-EP I Creatinine Equation (2020) Gas + CO Pnl BldVon 11-29-19 25 Potassium [Moles/Vol] 4.2 mmol/L Normal 3.7-5.1 [facility] Comment on above: Order Comment: Speci men Type: VENOUS BLOOD SPECIMENOrdering Facility: [facility] Address: [address] [place] [address] Performed By: #### 2 4344-4 ####[facility] LABCLIA [id number] [place] [address] [place] Order Comment: Speci men Type: BLOOD SPECIMENOrdering Facility: [facility] Address: [address] [place] [address] Performed By: #### 3 016-3, 00950-3, TNT, 3024-7 ####[facility] LABCLIA [id number] [place] [address] [place] Gas and Carbon monoxide pane l (BldV)on 11-28-2024 Base excess Calc (BldV) [Moles/Vol] 4 mmol/L High 0-2 [facility] Comment on above: Order Comment: Speci men Type: VENOUS BLOOD SPECIMENOrdering Facility: [facility] Address: [address] [place] [address] Performed By: #### 2 4344-4 ####[facility] LABCLIA [id number] [place] [address] [place] Body temperature 98.6 [degF] Normal [facility] Comment on above: Order Comment: Speci men Type: VENOUS BLOOD SPECIMENOrdering Facility: [facility] Address: [address] [place] [address] Performed By: #### 2 4344-4 ####[facility] LABCLIA [id number] [place] [address] [place] Calcium.ionized (Bld) [Mass/Vol] 1.24 mmol/L Normal 1.08-1.30 [facility] Comment on above: Order Comment: Speci men Type: VENOUS BLOOD SPECIMENOrdering Facility: [facility] Address: [address] [place] [address] Performed By: #### 2 4344-4 ####[facility] LABIA [id number] [place] [address] [place] Calcium.ionized adjusted to pH 7.4 (BldA) [Moles/Vol] 1.25 mmol/L Normal 1.08-1.30 [facility] Comment on above: Order Comment: Speci men Type: VENOUS BLOOD SPECIMENOrdering Facility: [facility] Address: [address] [place] [address] Performed By: #### 2 4344-4 ####[facility] LABCLIA [id number] [place] [address] [place] Carboxyhemoglobin (BldV) [Mass fraction] 1.6 % Normal 0.0-2.0 [facility] Comment on above: Order Comment: Speci men Type: VENOUS BLOOD SPECIMENOrdering Facility: [facility] Address: [address] [place] [address] Result Comment: Carb oxyhemoglobin Reference Range for Smokers: 2.0-8.0% Performed By: #### 2 4344-4 ####[facility] LABCLIA [id number] [address] [place] [address] [place] CO2 (BldV) [Partial pressure] 44 mm[Hg] Normal 42-55 [facility] Comment on above: Order Comment: Speci men Type: VENOUS BLOOD SPECIMENOrdering Facility: [facility] Address: [address] [place] [address] Performed By: #### 2 4344-4 ####[facility] LABCLIA [id number] [address], [facility]95 [place] Glucose [Mass/Vol] 119 mg/dL High 60-105 [facility] Comment on above: Order Comment: Speci men Type: VENOUS BLOOD SPECIMENOrdering Facility: [facility] Address: [address] [place] [address] Performed By: #### 2 4344-4 ####[facility] LABCLIA [id number] [place] [address] [place] HCO3 (Bld) [Moles/Vol] 28 mmol/L Normal 24-28 [facility] Comment on above: Order Comment: Speci men Type: VENOUS BLOOD SPECIMENOrdering Facility: [facility] Address: [address] [place] [address] Performed By: #### 2 4344-4 ####[facility] LABCLIA [id number] [place] [id number] [place] Hematocrit (Bld) [Volume fraction] 35.6 % Low 39.0-51.0 [facility] Comment on above: Order Comment: Speci men Type: VENOUS BLOOD SPECIMENOrdering Facility: [facility] Address: [address] [place], [place] [address] Performed By: #### 2 4344-4 ####[facility] LABCLIA [id number] [place] [address] [place] Hemoglobin (Bld) [Mass/Vol] 11.5 g/dL Low 13.0-17.0 [facility] Comment on above: Order Comment: Speci men Type: VENOUS BLOOD SPECIMENOrdering Facility: [facility] Address: [address] [place] [address] Performed By: #### 2 4344-4 ####[facility] LABCLIA [id number] [address] [place] [address] [place] Lactate [Moles/Vol] 0.9 mmol/L Normal 0.5-2.2 [facility] Comment on above: Order Comment: Speci men Type: VENOUS BLOOD SPECIMENOrdering Facility: [facility] Address: [address] [place], [place] [address] Performed By: #### 2 4344-4 ####[facility] LABCLIA [id number] [place] [id number] [place] LITERS 3 Liters/min Normal [facility] Comment on above: Order Comment: Speci men Type: VENOUS BLOOD SPECIMENOrdering Facility: [facility] Address: [address] [place], [place] [address] Performed By: #### 2 4344-4 ####[facility] LABCLIA [id number] [address], [facility]95 [place] Methemoglobin (Bld) [Mass fraction] 0.7 % Normal 0.0-1.5 [facility] Comment on above: Order Comment: Speci men Type: VENOUS BLOOD SPECIMENOrdering Facility: [facility] Address: [address] [place], [place] [address] Performed By: #### 2 4344-4 ####[facility] LABCLIA [id number] [place] [id number] [place] O2 THERAPY NC = Nasal Cannula Normal [facility] Comment on above: Order Comment: Speci men Type: VENOUS BLOOD SPECIMENOrdering Facility: [facility] Address: [address] [place], [place] [address] Performed By: #### 2 4344-4 ####[facility] LABCLIA [id number] [place] [address] [place] Oxygen (BldV) [Partial pressure] 53 mm[Hg] High 35-45 [facility] Comment on above: Order Comment: Speci men Type: VENOUS BLOOD SPECIMENOrdering Facility: [facility] Address: [address] [place] [address] Performed By: #### 2 4344-4 ####[facility] LABCLIA [id number] [place] [id number] [place] Oxygen saturation in Venous blood 88 % High 60-85 [facility] Comment on above: Order Comment: Speci men Type: VENOUS BLOOD SPECIMENOrdering Facility: [facility] Address: [address] [place] [address] Performed By: #### 2 4344-4 ####[facility] LABCLIA [id number] [place] [address] [place] Oxyhemoglobin (BldV) [Mass fraction] 86 % High 60-85 [facility] Comment on above: Order Comment: Speci men Type: VENOUS BLOOD SPECIMENOrdering Facility: [facility] Address: [address] [place] [address] Performed By: #### 2 4344-4 ####[facility] LABCLIA [id number] [place] [address] [place] pH (BldV) 7.42 [pH] Normal 7.32-7.42 [facility] Comment on above: Order Comment: Speci men Type: VENOUS BLOOD SPECIMENOrdering Facility: [facility] Address: [address] [place] [address] Performed By: #### 2 4344-4 ####[facility] LABCLIA [id number] [place] [id number] [place] Sodium [Moles/Vol] 137 mmol/L Normal 136-144 [facility] Comment on above: Order Comment: Speci men Type: VENOUS BLOOD SPECIMENOrdering Facility: [facility] Address: [address] [place] [address] Performed By: #### 2 4344-4 ####[facility] LABCLIA [id number] [place] [id number] [place] Glomerular filtration rate ( GFR) estimation/1.73 sq m using serum, plasma, or whole bOrdered By: Nate Gray on 11-28-2024 GFR/1.73 sq M.predicted among non-blacks MDRD (S/P/Bld) [Vol rate/Area] 48 mL/min/{1.73_m2} Low >60 [facility] Comment on above: mL/min/1.73m2 CKD-EP I Creatinine Equation (2020) Glucose Ql (U)Ordered By: Emory Gray on 11-28-2024 Urine Glucose (UA) Normal mg/dl Normal [facility] HIGH SENSITIVITY TROPONIN To n 11-28-2024 Troponin T.cardiac High sensitivity method [Mass/Vol] 131 ng/L High <12 [facility] Comment on above: Order Comment: Speci men Type: BLOOD SPECIMENOrdering Facility: [facility] Address: [address] [place] [address] Performed By: #### 3 016-3, 56715-4, HSTNT, 3024-7 ####[facility] LABIA [id number] [place] [address] [place] HISTORY PHYSICALon 5 HISTORY PHYSICAL Normal [facility] HIV 1+2 Ab IA Qlon 5 HIV 1 and 2 Ab IA.rapid Nom (S/P/Bld) Normal [facility] Comment on above: Order Comment: Speci men Type: BLOOD SPECIMENOrdering Facility: [facility] Address: [address] [place] [address] Result Comment: Test not indicated. Performed By: #### 3 1201-7, 57473-8 ####[facility] LABCLIA [id number] [place] [id number] [place] HIV 1+2 Ab+HIV1 p24 Ag IA Ql Non-Reactive Normal Nonreactive [facility] Comment on above: Order Comment: Speci men Type: BLOOD SPECIMENOrdering Facility: [facility] Address: [address] [place] [address] Performed By: #### 3 1201-7, 30686-4 ####[facility] LABCLIA [id number] [place] [address] [place] HIV immunoassay testing algorithm interpretation (S/P/Bld) [Interp] Normal [facility] Comment on above: Order Comment: Speci men Type: BLOOD SPECIMENOrdering Facility: [facility] Address: [address] [place] [address] Result Comment: No e vidence of HIV-1 or HIV-2 infection. Should recent infection be suspected, repeat testing may be considered 2-3 weeks after this draw.[place] Rev. Code 3701.243(E): This information has been [...] or diagnoses. Performed By: #### 3 1201-7, 43464-4 ####[facility] LABCLIA [id number] [place] [address] [place] Hematocrit Auto (Bld) [Volum e fraction]Ordered By: Nate Gray on 11-28-2024 Hematocrit (Bld) [Volume fraction] 38.5 % Low 40-54 [facility] Hemoglobin measurementOrdere d By: Nate Gray on 11-28-2024 Hemoglobin (Bld) [Mass/Vol] 12.4 g/dL Low 13.0-16.5 [facility] Immature granulocytes/100 WB C Auto (Bld)Ordered By: Nate Gray on 11-28-2024 Immature granulocytes/100 WBC (Bld) 0.400 % 0.0-0.9 [facility] Comment on above: IG% - Immature Granu locytes (promyelocytes, myelocytes and metamyelocytes) > 1% indicates that a LEFT SHIFT is Present. Ketones Test strip Ql (U)Ord ered By: Nate Gray on 11-28-2024 Ketones Ql (U) Negative Negative [facility] Laboratory - Chemistry and C hemistry - challengeOrdered By: Nate Gray on 11-28-2024 AST [Catalytic activity/Vol] 33 U/L <38 [facility] Laboratory - Hematology and Cell countsOrdered By: Nate Gray on 11-28-2024 Anisocytosis Ql (Bld) RARE [facility] Lipaseon 11-28-2024 Lipase [Catalytic activity/Vol] 38 U/L Normal 13-75 [facility] Comment on above: Result Comment: Verona rose note:LIPASE revised reference range effective 22.New Lipase methodology. Expected to produce lower valuesthan the previous assay method.NEW Reference Range: 13 - 75 U/L Performed By: #### L 500.4050, L501.2450, L100.0100, BTS ####[facility] [address] [place], [address] Lipase measurementOrdered By : Nate Gray on 11-28-2024 Lipase [Catalytic activity/Vol] 38 U/L 13-75 [facility] Comment on above: Please note:LIPASE r evised reference range effective 22. New Lipase methodology. Expected to produce lower values than the previous assay method. NEW Reference Range: 13 - 75 U/L Lymphocytes Auto (Unsp spec) [#/Vol]Ordered By: Nate Gray on 11-28-2024 Lymphocytes (Bld) [#/Vol] 0.86 10*3/uL 0.83-4.51 [facility] Lymphocytes/100 WBC Auto (Un sp spec)Ordered By: Nate Gray on 11-28-2024 Lymphocytes/100 WBC (Bld) 17.0 % Low 19-41 [facility] MCV (mean corpuscular volume ) determinationOrdered By: Nate Gray on 11-28-2024 MCV (RBC) [Entitic vol] 92.8 fL 80-94 [facility] Macrocytes Ql (Bld)Ordered B y: Nate Gray on 11-28-2024 Macrocytosis RARE [facility] Macrocytes detectionOrdered By: Nate Gray on 11-28-2024 Macrocytes Ql (Bld) RARE [facility] Manual differential comment Juvenal (Bld) [Interp]Ordered By: Nate Gray on 11-28-2024 Differential Comment SEE COMMENT [facility] Comment on above: THROMBOCYTOPENIA NOT ED Mean corpuscular hemoglobin (MCH) determinationOrdered By: Nate Gray on 11-28-2024 MCH (RBC) [Entitic mass] 29.9 pg 27.0-32.0 [facility] Mean corpuscular hemoglobin concentration (MCHC) determinationOrdered By: Nate Gray on 11-28-2024 MCHC (RBC) [Mass/Vol] 32.2 g/dL 32-36 [facility] Mean platelet volume determi nationOrdered By: Nate Gray on 11-28-2024 Platelet mean volume (Bld) [Entitic vol] 10.4 fL 6.2-12.0 [facility] Microscopic analysis of urin e for red blood cells (RBC)Ordered By: Nate Gray on 11-28-2024 Microscopic analysis of urine for red blood cells (RBC) 0-5 SEEN /hpf 0-5 [facility] Urine RBC 0-5 SEEN /hpf 0-5 [facility] Monocyte percentageOrdered B y: Nate Gray on 11-28-2024 Monocytes/100 WBC (Bld) 9.1 % 0-10 [facility] Mucus LM Ql (Urine sed)Order ed By: Nate Gray on 11-28-2024 Mucus Ql (Urine sed) 0 SEEN /hpf [facility] Neutrophil percentageOrdered By: Nate Gray on 11-28-2024 Neutrophils/100 WBC (Bld) 71.3 % High 47-70 [facility] Nitrite Test strip Ql (U)Ord ered By: Nate Gray on 11-28-2024 Nitrite Ql (U) Negative Negative [facility] Nucleated red blood cell per centageOrdered By: Nate Gray on 11-28-2024 Nucleated RBC/100 WBC (Bld) [Ratio] 0 % 0-5 [facility] Platelet countOrdered By: Emory Gray on 11-28-2024 Platelets (Bld) [#/Vol] 93 10*3/uL Low 150-450 [facility] Platelet estimateOrdered By: Nate Gray on 11-28-2024 Platelets LM Ql (Bld) MOD DEC ADEQ [facility] Platelets LM Ql (Bld)Ordered By: Nate Gray on 11-28-2024 Platelet Estimate MOD [facility] Potassium (Unsp spec) [Mass/ Vol]Ordered By: Nate Gray on 11-28-2024 Potassium [Moles/Vol] 4.0 mmol/L 3.3-5.1 [facility] Potassium measurement (mass/ volume)Ordered By: Nate Gray on 11-28-2024 Potassium (Unsp spec) [Mass/Vol] 4.0 mmol/L 3.3-5.1 [facility] Protein Test strip Ql (U)Ord ered By: Nate Gray on 11-28-2024 Protein Ql (U) 15 mg/dl High Negative [facility] RBC Auto (Bld) [#/Vol]Ordere d By: Nate Gray on 11-28-2024 RBC (Bld) [#/Vol] 4.15 10*6/uL Low 4.6-6.2 [facility] RBC morphology finding Nom ( Bld)Ordered By: Nate Gray on 11-28-2024 Red Blood Cell Morphology N CHROM NORMAL NORM C&C [facility] STAPHYLOCOCCUS AUREUS AND MR SA SCREEN, PCR, NASALon 11-28-2024 S. aureus and MRSA panel ELIZABETH+probe (Nose) Not detected Normal Not Detected [facility] Comment on above: Order Comment: Speci men Type: SWABOrdering Facility: [facility] Address: [address] [place] [address] Performed By: #### S APCR ####[facility] LABCLIA [id number] [place] [address] [place] Serum creatinine measurement (mass/volume)Ordered By: Nate Gray on 11-28-2024 Creatinine [Mass/Vol] 1.43 mg/dL High 0.70-1.20 [facility] Serum globulin measurementOr dered By: Nate Gray on 11-28-2024 Globulin (S) [Mass/Vol] 3.2 g/dL 2.2-4.2 [facility] Serum glucose measurement (m ass/volume)Ordered By: Nate Gray on 11-28-2024 Glucose [Mass/Vol] 140 mg/dL High 70-99 [facility] Serum or plasma alanine delgado otransferase (ALT) measurementOrdered By: Nate Gray on 11-28-2024 ALT [Catalytic activity/Vol] 24 U/L <47 [facility] Serum or plasma albumin jossie urement (mass/volume)Ordered By: Nate Gray on 11-28-2024 Albumin [Mass/Vol] 4.0 g/dL 3.4-4.8 [facility] Serum or plasma albumin/glob ulin mass ratioOrdered By: Nate Gray on 11-28-2024 Albumin/Globulin [Mass ratio] 1.3 {ratio} 0.9-2.4 [facility] Serum or plasma alkaline silas sphatase measurementOrdered By: Nate Gray on 11-28-2024 ALP [Catalytic activity/Vol] 66 U/L 40-129 [facility] Serum or plasma calcium jossie urement (mass/volume)Ordered By: Nate Gray on 11-28-2024 Calcium [Mass/Vol] 9.4 mg/dL 7.6-11.0 [facility] Serum or plasma urea nitroge n measurement (mass/volume)Ordered By: Nate Gray on 11-28-2024 Urea nitrogen [Mass/Vol] 39 mg/dL High 4-19 [facility] Sodium levelOrdered By: Nate Gray on 11-28-2024 Sodium [Moles/Vol] 137 mmol/L 133-145 [facility] Squamous epithelial cells de tection in urine sediment by light microscopyOrdered By: Nate Gray on 11-28-2024 Epithelial cells.squamous LM Ql (Urine sed) 0-5 SEEN /hpf 0-5 [facility] T4 Free SerPl-mCncon 025 Free T4 [Mass/Vol] 1.2 ng/dL Normal 0.9-1.7 [facility] Comment on above: Order Comment: Speci men Type: BLOOD SPECIMENOrdering Facility: [facility] Address: [address] [place] [address] Performed By: #### 3 016-3, 13160-0, HSTNT, 3024-7 ####[facility] LABCLIA [id number] [place] [address] [place] TSH SerPl-aCncon 11-28-2024 TSH Qn 9.100 m[IU]/L High 0.270-4.200 [facility] Comment on above: Order Comment: Speci men Type: BLOOD SPECIMENOrdering Facility: [facility] Address: [address] [place] [address] Performed By: #### 3 016-3, 20336-3, HSTNT, 3024-7 ####[facility] LABCLIA [id number] [place] [address] [place] TYPE + SCREENon 11-28-2024 ABO O Normal [facility] Comment on above: Order Comment: Speci men Type: BLOOD SPECIMENOrdering Facility: [facility] Address: [address] [place] [address] Performed By: #### T SCR ####[facility] BANKCLIA [id number] [place] [address] [place] Rh Nom (Bld) Negative Normal [facility] Comment on above: Order Comment: Speci men Type: BLOOD SPECIMENOrdering Facility: [facility] Address: [address] [place] [address] Performed By: #### T SCR ####[facility] BLOOD BANKIA [id number] [place] [address] [place] TYPE AND SCREEN EXPIRATION 12/01/2024 23:59 Normal [facility] Comment on above: Order Comment: Speci men Type: BLOOD SPECIMENOrdering Facility: [facility] Address: [address] [place] [address] Performed By: #### T SCR ####[facility] BLO[facility] BANKCLIA [id number] [place] [address] [place] Total proteinOrdered By: Troy Gray on 11-28-2024 Protein [Mass/Vol] 7.2 g/dL 5.9-8.4 [facility] Type AND Screenon 11-28-2024 ABO and Rh group Nom (Bld) Blood group O Rh(D) negative Normal [facility] Comment on above: Order Comment: A Performed By: #### L 500.4050, L501.2450, L100.0100, BTS ####[facility] [address] [place], [address] Urinalysis, Completeon 11-28 EPI,SQUAMOUS 0-5 SEEN Normal 0-5 [facility] Comment on above: Order Comment: CLEAN CATCH Performed By: #### L 400.0001 ####[facility] [address] [place], [address] RBC 0-5 SEEN Normal 0-5 [facility] Comment on above: Order Comment: CLEAN CATCH Performed By: #### L 400.0001 ####[facility] [address] [place], [address] WBC 0-5 SEEN Normal 0-5 [facility] Comment on above: Order Comment: CLEAN CATCH Performed By: #### L 400.0001 ####[facility] [address] [place], [address] BACTERIA 0 SEEN Normal None Seen [facility] Comment on above: Order Comment: CLEAN CATCH Performed By: #### L 400.0001 ####[facility] [address] [place], [address] Mucus Ql (Urine sed) 0 SEEN Normal [facility] Comment on above: Order Comment: CLEAN CATCH Performed By: #### L 400.0001 ####[facility] [address] [place], [address] Urine blood detectionOrdered By: Nate Gray on 11-28-2024 Urine Occult Blood Negative Negative [facility] Urine clarityOrdered By: Troy Gray on 11-28-2024 Clarity (U) Sl. Cloudy Clear [facility] Urine color determinationOrd ered By: Nate Gray on 11-28-2024 Color (U) Yellow Yellow [facility] Urine glucose detectionOrder ed By: Nate Gray on 11-28-2024 Glucose Ql (U) Normal mg/dl Normal [facility] Urine leukocyte esterase det ection by dipstickOrdered By: Nate Gray on 11-28-2024 Leukocyte esterase Test strip Ql (U) Negative Negative [facility] Urine pHOrdered By: Nate Philip ght on 11-28-2024 pH (U) 6.5 [pH] 5.0 - 8.0 [facility] Urine sediment bacteria coun t by microscopy (number/high power field)Ordered By: Nate Gray on 11-28-2024 Bacteria LM.HPF (Urine sed) [#/Area] 0 /[HPF] None Seen [facility] Urine specific gravity measu rementOrdered By: Nate Gray on 11-28-2024 Specific gravity (U) [Rel density] 1.010 1.002-1.030 [facility] Urine urobilinogen measureme ntOrdered By: Nate Gray on 11-28-2024 Urobilinogen Ql (U) Normal mg/dl Normal [facility] Urobilinogen Ql (U)Ordered B y: Nate Gray on 11-28-2024 Urine Urobilinogen Normal mg/dl Normal [facility] White blood cell (WBC) count Ordered By: Nate Gray on 11-28-2024 WBC (Bld) [#/Vol] 5.1 10*3/uL 4.4-11.0 [facility] White blood cell countOrdere d By: Nate Gray on 11-28-2024 Urine WBC 0-5 SEEN /hpf 0-5 [facility] White blood cell count 0-5 SEEN /hpf 0-5 [facility] XR CHEST 1V FRONTAL PORTon 0 11-28-2024 XR CHEST 1V FRONTAL PORT Normal [facility] Bacteria Ur Culton Bacteria identified Cx Nom (U) ORGANISM ID: 1 <10,000 CFU/ml Normal urogenital heather Normal [facility] Comment on above: Performed By: #### 6 30-4 ####[facility] LABCLIA [id number] [place] [address] [place] Basic metabolic 2000 panelOr dered By: Lucille Glover on 11-27-2024 Anion gap [Moles/Vol] 10 mmol/L 8 - 15 mmol/L [facility] Calcium [Mass/Vol] 9.2 mg/dL 8.5 - 10. 2 mg/dL [facility] Chloride [Moles/Vol] 103 mmol/L 98 - 10 7 mmol/L [facility] CO2 [Moles/Vol] 26 mmol/L 22 - 30 mmol/L [facility] Creatinine [Mass/Vol] 1.26 mg/dL High 0.73 - 1.22 mg/dL [facility] GFR/1.73 sq M.predicted among non-blacks MDRD (S/P/Bld) [Vol rate/Area] 56 mL/min/{1.73_m2} Low - PINF [facility] Comment on above: Estimated Glomerular Filtration [...] 104 mg/dL High 74 - 99 mg/dL [facility] Comment on above: The [place] [employer] Association (ADA) provides guidance for [...] Standards of Medical Care in Diabetes 2016, [place] [employer]. Diabetes Care. 2016.39(Suppl 1). Interpretation and review of laboratory results Abnormal [facility] Potassium [Moles/Vol] 4.1 mmol/L 3.7 - 5.1 mmol/L [facility] Sodium [Moles/Vol] 139 mmol/L 136 - 144 mmol/L [facility] Urea nitrogen [Mass/Vol] 35 mg/dL High 9 - 24 mg/dL [facility] Basic metabolic 2000 panelon 11-27-2024 Anion gap [Moles/Vol] 10 mmol/L Normal 8-15 [facility] Comment on above: Order Comment: Speci men Type: BLOOD SPECIMENOrdering Facility: [facility] Address: [address] [place] [address] Performed By: #### 2 4321-2 ####[facility] MILLTOWNCLIA [id number] [place] [address] [place] Calcium [Mass/Vol] 9.2 mg/dL Normal 8.5-10.2 [facility] Comment on above: Order Comment: Speci men Type: BLOOD SPECIMENOrdering Facility: [facility] Address: [address] [place] [address] Performed By: #### 2 4321-2 ####[facility] MILLWNCLIA [id number] [place] [address] [place] Chloride [Moles/Vol] 103 mmol/L Normal 98-107 [facility] Comment on above: Order Comment: Speci men Type: BLOOD SPECIMENOrdering Facility: [facility] Address: [address] [place] [address] Performed By: #### 2 4321-2 ####[facility] MILLWNCLIA [id number] [place] [address] [place] CO2 [Moles/Vol] 26 mmol/L Normal 22-30 [facility] Comment on above: Order Comment: Speci men Type: BLOOD SPECIMENOrdering Facility: [facility] Address: [address] [place] [address] Performed By: #### 2 4321-2 ####[facility] MILLWNCLIA [id number] [place] [address] [place] Creatinine [Mass/Vol] 1.26 mg/dL High 0.73-1.22 [facility] Comment on above: Order Comment: Ian lassiter Type: BLOOD SPECIMENOrdering Facility: [facility] Address: [address] [place] [address] Performed By: #### 2 4321-2 ####[facility] [id number] [place] [address] [place] Creatinine and Glomerular filtration rate.predicted panel (S/P/Bld) 56 mL/min/1.73m??? Low >=60 [facility] Comment on above: Order Comment: Ian lassiter Type: BLOOD SPECIMENOrdering Facility: [facility] Address: [address] [place] [address] Result Comment: Keara mated Glomerular Filtration Rate [...] actual GFR. Performed By: #### 2 4321-2 ####[facility] [id number] [place] [address] [place] Glucose [Mass/Vol] 104 mg/dL High 74-99 [facility] Comment on above: Order Comment: Ian lassiter Type: BLOOD SPECIMENOrdering Facility: [facility] Address: [address] [place] [address] Result Comment: The [place] Diabetes Association (ADA) provides guidance for cutoff [...] Standards of Medical Care in Diabetes 2016, [place] [employer] Association. Diabetes Care. 2016.39(Suppl 1). Performed By: #### 2 4321-2 ####[facility] LAUREEN RADHA [id number] [place] [address] [place] Potassium [Moles/Vol] 4.1 mmol/L Normal 3.7-5.1 [facility] Comment on above: Order Comment: Speci men Type: BLOOD SPECIMENOrdering Facility: [facility] Address: [address] [place] [address] Performed By: #### 2 4321-2 ####[facility] HOSPITALCHARLYNila [id number] [place] [address] [place] Sodium [Moles/Vol] 139 mmol/L Normal 136-144 [facility] Comment on above: Order Comment: Speci men Type: BLOOD SPECIMENOrdering Facility: [facility] Address: [address] [place] [address] Performed By: #### 2 4321-2 ####[facility] BEACHNila [id number] [place] [address] [place] Urea nitrogen [Mass/Vol] 35 mg/dL High 9-24 [facility] Comment on above: Order Comment: Speci men Type: BLOOD SPECIMENOrdering Facility: [facility] Address: [address] [place] [address] Performed By: #### 2 4321-2 ####[facility] HOSPITALLIA [id number] [place] [address] [place] CBC panel Auto (Bld)on 11-27 Erythrocyte distribution width (RBC) [Ratio] 15 % 11.5 - 15.0 % [facility] Hematocrit (Bld) [Volume fraction] 37.7 % Low 39.0 - 51.0 % [facility] Hemoglobin (Bld) [Mass/Vol] 12.2 g/dL Low 13.0 - 17.0 g/dL [facility] Interpretation and review of laboratory results Abnormal [facility] MCH (RBC) [Entitic mass] 30.2 pg 26.0 - 34.0 pg [facility] MCHC (RBC) [Mass/Vol] 32.4 g/dL 30.5 - 36.0 g/dL [facility] MCV (RBC) [Entitic vol] 93.3 fL 80.0 - 100.0 fL [facility] Nucleated RBC (Bld) [#/Vol] NINF [facility] Platelet mean volume (Bld) [Entitic vol] 10.7 fL 9.0 - 12.7 fL [facility] Platelets (Bld) [#/Vol] 91 10*3/uL Low [facility] Comment on above: No clot detected. RBC (Bld) [#/Vol] 4.04 10*6/uL Low 4.20 - 6.0 0 m/uL [facility] WBC (Bld) [#/Vol] 5.57 10*3/uL [facility] Erythrocyte distribution width (RBC) [Ratio] 15.0 % Normal 11.5-15.0 [facility] Comment on above: Order Comment: Speci men Type: BLOOD SPECIMENOrdering Facility: [facility] Address: [address] [place] [address] Performed By: #### 5 8410-2 ####[facility] [id number] [place] [address] [place] Hematocrit (Bld) [Volume fraction] 37.7 % Low 39.0-51.0 [facility] Comment on above: Order Comment: Speci men Type: BLOOD SPECIMENOrdering Facility: [facility] Address: [address] [place], [place] [address] Performed By: #### 5 8410-2 ####[facility] [id number] [place] [address] [place] Hemoglobin (Bld) [Mass/Vol] 12.2 g/dL Low 13.0-17.0 [facility] Comment on above: Order Comment: Speci men Type: BLOOD SPECIMENOrdering Facility: [facility] Address: [address] [place] [address] Performed By: #### 5 8410-2 ####[facility] SIERRASKY [id number] [address] MCH (RBC) [Entitic mass] 30.2 pg Normal 26.0-34.0 [facility] Comment on above: Order Comment: Speci men Type: BLOOD SPECIMENOrdering Facility: [facility] Address: [address] [place] [address] Performed By: #### 5 8410-2 ####[facility] HOSPITALNCJORDAN VALLEY [facility] [id number] [address] STATES [facility] MCHC (RBC) [Mass/Vol] 32.4 g/dL Normal 30.5-36.0 [facility] Comment on above: Order Comment: Speci men Type: BLOOD SPECIMENOrdering Facility: [facility] Address: [address] [place] [address] Performed By: #### 5 8410-2 ####[facility]DEST[facility] HOSPITALNCA [id number] [address] STATES [facility] MCV (RBC) [Entitic vol] 93.3 fL Normal 80.0-100.0 [facility] Comment on above: Order Comment: Speci men Type: BLOOD SPECIMENOrdering Facility: [facility] Address: [address] [place] [address] Performed By: #### 5 8410-2 ####[facility] HOSPITALNCLIA [id number] [address] [place] Nucleated RBC (Bld) [#/Vol] 10*3/uL Normal <0.01 [facility] Comment on above: Order Comment: Speci men Type: BLOOD SPECIMENOrdering Facility: [facility] Address: [address] [place] [address] Performed By: #### 5 8410-2 ####[facility] CENTERWNCLIA [id number] [place] [address] [place] Platelet mean volume (Bld) [Entitic vol] 10.7 fL Normal 9.0-12.7 [facility] Comment on above: Order Comment: Speci men Type: BLOOD SPECIMENOrdering Facility: [facility] Address: [address] [place] [address] Performed By: #### 5 8410-2 ####[facility] HOSPITALNCLIA [id number] [place] [address] [place] Platelets (Bld) [#/Vol] 91 10*3/uL Low 150-400 [facility] Comment on above: Order Comment: Speci men Type: BLOOD SPECIMENOrdering Facility: [facility] Address: [address] [place] [address] Result Comment: No c lot detected. Performed By: #### 5 8410-2 ####[facility] HOSPITALNCLIA [id number] [place] [address] [place] RBC (Bld) [#/Vol] 4.04 10*6/uL Low 4.20-6.00 [facility] Comment on above: Order Comment: Speci men Type: BLOOD SPECIMENOrdering Facility: [facility] Address: [address] [place] [address] Performed By: #### 5 8410-2 ####[facility] HOSPITALNCLIA [id number] [place] [address] [place] WBC (Bld) [#/Vol] 5.57 10*3/uL Normal 3.70-11.00 [facility] Comment on above: Order Comment: Speci men Type: BLOOD SPECIMENOrdering Facility: [facility] Address: [address] [place] [address] Performed By: #### 5 8410-2 ####[facility] HOSPITALNCNila [id number] [place] [address] [place] CNOVon 11-27-2024 CNOV Normal [facility] Lipase SerPl-cCncon 11-28-19 25 Lipase [Catalytic activity/Vol] 28 U/L Normal 16-61 [facility] Comment on above: Order Comment: Speci men Type: BLOOD SPECIMENOrdering Facility: [facility] Address: [address] [place] [address] Performed By: #### 3 3762-6, 3040-3, 22022-5 ####[facility] LABCLIA [id number] [place] [address] [place] Lipid 1996 panelon 5 Cholesterol [Mass/Vol] 169 mg/dL Normal <200 [facility] Comment on above: Order Comment: Speci men Type: BLOOD SPECIMENOrdering Facility: [facility] Address: [address] [place] [address] Result Comment: <200 mg/dL, Desirable 200-239 mg/dL, Borderline high>239 mg/dL, High Performed By: #### 3 3762-6, 3040-3, 99686-9 ####[facility] LABCLIA [id number] [address] [place] Cholesterol in HDL [Mass/Vol] 50 mg/dL Normal >39 [facility] Comment on above: Order Comment: Speci men Type: BLOOD SPECIMENOrdering Facility: [facility] Address: [address] [place] [address] Result Comment: 40-5 9 mg/dL, Acceptable>59 mg/dL, High: Negative risk factor for coronary heart disease<40 mg/dL, Low: Positive risk factor for coronary heart disease Performed By: #### 3 3762-6, 3040-3, 52490-8 ####[facility] LABCLIA [id number] [address] [address] [place] Cholesterol in LDL [Mass/Vol] 100 mg/dL High <100 [facility] Comment on above: Order Comment: Speci men Type: BLOOD SPECIMENOrdering Facility: [facility] Address: [address] [place] [address] Result Comment: <100 mg/dL, Optimal 100-129 mg/dL, Near optimal/above optimal 130-159 mg/dL, Borderline high 160-189 mg/dL, High>189 mg/dL, Very highSecondary prevention optimal LDL Cholesterol levels are recommended to be < 70 mg/dL Performed By: #### 3 3762-6, 3040-3, 58903-0 ####[facility] LABCLIA [id number] [facility] CENTERK [address] [address] [place] Cholesterol in LDL/Cholesterol in HDL [Mass ratio] 2.00 {ratio} Normal <2.54 [facility] Comment on above: Order Comment: Speci men Type: BLOOD SPECIMENOrdering Facility: [facility] Address: [address] [place] [address] Result Comment: Refe rence:1. National Cholesterol Education Program ATP III Guideline At-A-Glance Quick Desk Reference: National Heart, Lung, and Blood [place]. National Institutes of Health. 2001: NIH Publication No. 01-3305.2. An International Atherosclerosis Society position paper: global recommendations for the management of dyslipidemia: executive summary, Atherosclerosis. 2014: 232(2):410-413. Performed By: #### 3 3762-6, 3040-3, 00681-2 ####[facility] LABCLIA [id number] [facility]ENTERK [address] [address] [place] Cholesterol in VLDL [Mass/Vol] 19 mg/dL Normal <30 [facility] Comment on above: Order Comment: Speci men Type: BLOOD SPECIMENOrdering Facility: [facility] Address: [address] [place] [address] Performed By: #### 3 3762-6, 3040-3, 20675-9 ####[facility] LABCLIA [id number] [facility]ICD [facility] [id number] [place] [address] [place] Cholesterol non HDL [Mass/Vol] 119 mg/dL Normal <130 [facility] Comment on above: Order Comment: Speci men Type: BLOOD SPECIMENOrdering Facility: [facility] Address: [address] [place] [address] Result Comment: <130 mg/dL, Optimal 130-159 mg/dL, Near optimal/above optimal 160-189 mg/dL, Borderline high 190-219 mg/dL, High>219 mg/dL, Very highSecondary prevention optimal non HDL Cholesterol levels are recommended to be <100 mg/dL Performed By: #### 3 3762-6, 3040-3, 20064-1 ####[facility] LABCLIA [id number] [place] [address] [place] Cholesterol.total/Cho lesterol in HDL [Mass ratio] 3.38 {ratio} Normal <5.10 [facility] Comment on above: Order Comment: Speci men Type: BLOOD SPECIMENOrdering Facility: [facility] Address: [address] [place] [address] Performed By: #### 3 3762-6, 3040-3, 90329-6 ####[facility] LABCLIA [id number] [place] [address] [place] FASTING TIME Normal [facility] Comment on above: Order Comment: Speci men Type: BLOOD SPECIMENOrdering Facility: [facility] Address: [address] [place] [address] Result Comment: Unkn own Performed By: #### 3 3762-6, 3040-3, 07977-0 ####[facility] LABCLIA [id number] [address] [address] [place] Triglyceride [Mass/Vol] 97 mg/dL Normal <150 [facility] Comment on above: Order Comment: Speci men Type: BLOOD SPECIMENOrdering Facility: [facility] Address: [address] [place] [address] Result Comment: <150 mg/dL, Normal 150-199 mg/dL, Borderline high 200-499 mg/dL, High>499 mg/dL, Very high Performed By: #### 3 3762-6, 3040-3, 34518-6 ####[facility] LABCLIA [id number] [place] [address] [place] NT-proBNP SerPl-mCncon 11-27 Natriuretic peptide.B prohormone N-Terminal [Mass/Vol] 1180 pg/mL High <450 [facility] Comment on above: Order Comment: Speci men Type: BLOOD SPECIMENOrdering Facility: [facility] Address: [address] [place] [address] Performed By: #### 3 3762-6, 3040-3, 32560-7 ####[facility] LABIA [id number] [address] [place] TSH SerPl-aCncon 11-27-2024 TSH Qn 8.680 m[IU]/L High 0.270-4.200 [facility] Comment on above: Order Comment: Speci men Type: BLOOD SPECIMENOrdering Facility: [facility] Address: [address] [place] [address] Performed By: #### 3 016-3 ####[facility] [id number] [place] [address] [place] UA DIP, URINE (POC)on 2024 BILIRUBIN UA (POCT) Negative Negative [facility] CLARITY UA (POCT) Clear [facility] COLOR UA (POCT) Yellow [facility] GLUCOSE UA (POCT) Negative Negative mg/dL [facility] Hemoglobin Ql (U) Negative Negative [facility] Interpretation and review of laboratory results Abnormal [facility] KETONE UA (POCT) Negative Negative mg/dL [facility] LEUKOCYTES UA (POCT) Negative Negative [facility] NITRITE UA (POCT) Negative Negative [facility] PH UA (POCT) 6 4.5 - 8.0 [facility] Protein Ql (U) Trace Abnormal Negative mg/dL [facility] SPECIFIC GRAVITY UA (POCT) 1.02 1.005 - 1.030 [facility] UROBILINOGEN UA (POCT) 0.2 Normal E.U./dL [facility] Location: [place], [address], [place], [address] [facility] POINT OF CARE [facility] CNTHERAPYon 11-24-2024 CNTHERAPY Normal [facility] [id number] 11-21-2024 [id number] Normal [facility] CNTHERAPYon 11-21-2024 CNTHERAPY Normal [facility] THERAPY NTon 11-21-2024 THERAPY NT Normal [facility] CNOVon 11-09-2024 CNOV Normal [facility] CNOVon 11-07-2024 CNOV Normal [facility] Surgery Visit Reporton 09-15 Surgery Visit Report Normal [facility] CNPNon 09-08-2024 CNPN Normal [facility] CNOVon 09-07-2024 CNOV Normal [facility] T3 SerPl-mCncon 09-07-2024 T3 [Mass/Vol] 69 ng/dL Low 79-165 [facility] Comment on above: Order Comment: Speci men Type: BLOOD SPECIMENOrdering Facility: [facility] Address: [address] [place] [address] Performed By: #### 3 053-6, 7 ####[facility] LABIA [id number] [place] [address] [place] T4 Free SerPl-mCncon 024 Free T4 [Mass/Vol] 1.3 ng/dL Normal 0.9-1.7 [facility] Comment on above: Order Comment: Speci men Type: BLOOD SPECIMENOrdering Facility: [facility] Address: [address] [place] [address] Performed By: #### 3 053-6, 3027 ####[facility] LABCLIA [id number] [place] [id number] [place] Discharge Instructionon 08-20 Discharge Instruction Normal [facility] MR/POSTOP.ANEon 08-31-2024 MR/POSTOP.ANE Normal [facility] MR/[id number] 08-31-2024 MR/POSTOPAN2 Normal [facility] Operative Reporton Operative Report Normal [facility] CNPTOUTREACHon 08-28-2024 CNPTOUTREACH Normal [facility] CNPTOUTREACHon 08-24-2024 CNPTOUTREACH Normal [facility] CBC panel Auto (Bld)on 08-04 Erythrocyte distribution width (RBC) [Ratio] 14.7 % Normal 11.5-15.0 [facility] Comment on above: Order Comment: Speci men Type: BLOOD SPECIMENOrdering Facility: [facility] Address: [address] [place] [address] Performed By: #### 5 8410-2 ####[facility] LABIA [id number] [place] [address] [place] Hematocrit (Bld) [Volume fraction] 37.4 % Low 39.0-51.0 [facility] Comment on above: Order Comment: Speci men Type: BLOOD SPECIMENOrdering Facility: [facility] Address: [address] [place] [address] Performed By: #### 5 8410-2 ####[facility] LABIA [id number] [place] [address] [place] Hemoglobin (Bld) [Mass/Vol] 11.9 g/dL Low 13.0-17.0 [facility] Comment on above: Order Comment: Speci men Type: BLOOD SPECIMENOrdering Facility: [facility] Address: [address] [place] [address] Performed By: #### 5 8410-2 ####[facility] LABIA [id number] [place] [address] [place] MCH (RBC) [Entitic mass] 30.1 pg Normal 26.0-34.0 [facility] Comment on above: Order Comment: Speci men Type: BLOOD SPECIMENOrdering Facility: [facility] Address: [address] [place] [address] Performed By: #### 5 8410-2 ####[facility] LABCLIA [id number] [place] [address] [place] MCHC (RBC) [Mass/Vol] 31.8 g/dL Normal 30.5-36.0 [facility] Comment on above: Order Comment: Speci men Type: BLOOD SPECIMENOrdering Facility: [facility] Address: [address] [place] [address] Performed By: #### 5 8410-2 ####[facility] LABIA [id number] [place] [address] [place] MCV (RBC) [Entitic vol] 94.4 fL Normal 80.0-100.0 [facility] Comment on above: Order Comment: Speci men Type: BLOOD SPECIMENOrdering Facility: [facility] Address: [address] [place] [address] Performed By: #### 5 8410-2 ####[facility] LABIA [id number] [place] [address] [place] Nucleated RBC (Bld) [#/Vol] 10*3/uL Normal <0.01 [facility] Comment on above: Order Comment: Speci men Type: BLOOD SPECIMENOrdering Facility: [facility] Address: [address] [place] [address] Performed By: #### 5 8410-2 ####[facility] LABCLIA [id number] [place] [address] [place] Platelet mean volume (Bld) [Entitic vol] 12.3 fL Normal 9.0-12.7 [facility] Comment on above: Order Comment: Speci men Type: BLOOD SPECIMENOrdering Facility: [facility] Address: [address] [place] [address] Performed By: #### 5 8410-2 ####[facility] LABCLIA [id number] [place] [address] [place] Platelets (Bld) [#/Vol] 88 10*3/uL Low 150-400 [facility] Comment on above: Order Comment: Speci men Type: BLOOD SPECIMENOrdering Facility: [facility] Address: [address] [place] [address] Result Comment: No c lot detected. Performed By: #### 5 8410-2 ####[facility] LABIA [id number] [place] [address] [place] RBC (Bld) [#/Vol] 3.96 10*6/uL Low 4.20-6.00 [facility] Comment on above: Order Comment: Speci men Type: BLOOD SPECIMENOrdering Facility: [facility] Address: [address] [place] [address] Performed By: #### 5 8410-2 ####[facility] LABIA [id number] [place] [address] [place] WBC (Bld) [#/Vol] 5.07 10*3/uL Normal 3.70-11.00 [facility] Comment on above: Order Comment: Speci men Type: BLOOD SPECIMENOrdering Facility: [facility] Address: [address] [place] [address] Performed By: #### 5 8410-2 ####[facility] LABIA [id number] [place] [address] [place] Comprehensive metabolic 2000 panelon 08-04-2024 Albumin [Mass/Vol] 3.7 g/dL Low 3.9-4.9 [facility] Comment on above: Order Comment: Speci men Type: BLOOD SPECIMENOrdering Facility: [facility] Address: [address] [place] [address] Performed By: #### 2 4323-8, 3016-3, 90887-4 ####[facility] LABCLIA [id number] [place] [address] [place] ALP [Catalytic activity/Vol] 44 U/L Normal 38-113 [facility] Comment on above: Order Comment: Speci men Type: BLOOD SPECIMENOrdering Facility: [facility] Address: [address] [place] [address] Performed By: #### 2 4323-8, 3016-3, 03112-8 ####[facility] LABCLIA [id number] [place] [address] [place] ALT [Catalytic activity/Vol] 22 U/L Normal 10-54 [facility] Comment on above: Order Comment: Speci men Type: BLOOD SPECIMENOrdering Facility: [facility] Address: [address] [place] [address] Performed By: #### 2 4323-8, 3016-3, 45187-0 ####[facility] LABCLIA [id number] [place] [address] [place] Anion gap [Moles/Vol] 9 mmol/L Normal 8-15 [facility] Comment on above: Order Comment: Speci men Type: BLOOD SPECIMENOrdering Facility: [facility] Address: [address] [place] [address] Performed By: #### 2 4323-8, 6-3, 84654-3 ####[facility] LABCLIA [id number] [place] [address] [place] AST [Catalytic activity/Vol] 25 U/L Normal 14-40 [facility] Comment on above: Order Comment: Speci men Type: BLOOD SPECIMENOrdering Facility: [facility] Address: [address] [place] [address] Performed By: #### 2 4323-8, 3016-3, 92810-7 ####[facility] LABCLIA [id number] [place] [address] [place] Bilirubin [Mass/Vol] 0.6 mg/dL Normal 0.2-1.3 [facility] Comment on above: Order Comment: Speci men Type: BLOOD SPECIMENOrdering Facility: [facility] Address: [address] [place], [place] [address] Performed By: #### 2 4323-8, 6-3, 37466-9 ####[facility] LABCLIA [id number] [facility] [address] [place] Calcium [Mass/Vol] 9.4 mg/dL Normal 8.5-10.2 [facility] Comment on above: Order Comment: Speci men Type: BLOOD SPECIMENOrdering Facility: [facility] Address: [address] [place] [address] Performed By: #### 2 4323-8, 3015-3, 63266-2 ####[facility] LABCLIA [id number] [facility] [place] [address] [place] Chloride [Moles/Vol] 102 mmol/L Normal 98-107 [facility] Comment on above: Order Comment: Speci men Type: BLOOD SPECIMENOrdering Facility: [facility] Address: [address] [place], [place] [address] Performed By: #### 2 4323-8, 3015-3, ####[facility] LABCLIA [id number] [facility]ENUEROB[facility] [place] [id number] [place] CO2 [Moles/Vol] 28 mmol/L Normal 22-30 [facility] Comment on above: Order Comment: Speci men Type: BLOOD SPECIMENOrdering Facility: [facility] Address: [address] [place] [address] Performed By: #### 2 4323-8, 6-3, 25575-7 ####[facility] LABCLIA [id number] [facility] [address] [address] [place] Creatinine [Mass/Vol] 1.55 mg/dL High 0.73-1.22 [facility] Comment on above: Order Comment: Speci men Type: BLOOD SPECIMENOrdering Facility: [facility] Address: [address] [place] [address] Performed By: #### 2 4323-8, 3016-3, 96933-4 ####[facility] LABCLIA [id number] [place] [address] [place] Creatinine and Glomerular filtration rate.predicted panel (S/P/Bld) 44 mL/min/1.73m??? Low >=60 [facility] Comment on above: Order Comment: Ian lassiter Type: BLOOD SPECIMENOrdering Facility: [facility] Address: [address] [place] [address] Result Comment: Keara mated Glomerular Filtration Rate [...] GFR. Performed By: #### 2 4323-8, 3016-3, 30670-4 ####[facility] LABIA [id number] [place] [address] [place] Glucose [Mass/Vol] 101 mg/dL High 74-99 [facility] Comment on above: Order Comment: Ian lassiter Type: BLOOD SPECIMENOrdering Facility: [facility] Address: [address] [place] [address] Result Comment: The [place] Diabetes Association (ADA) provides guidance for cutoff [...] Standards of Medical Care in Diabetes 2016, [place] Diabetes Association. Diabetes Care. 2016.39(Suppl 1). Performed By: #### 2 4323-8, 6-3, 33474-4 ####[facility] LABCLIA [id number] [address] [address] [place] Potassium [Moles/Vol] 4.5 mmol/L Normal 3.7-5.1 [facility] Comment on above: Order Comment: Speci men Type: BLOOD SPECIMENOrdering Facility: [facility] Address: [address] [place] [address] Performed By: #### 2 4323-8, 3015-3, 48931-2 ####[facility] LABCLIA [id number] [address] [address] [place] Protein [Mass/Vol] 6.8 g/dL Normal 6.3-8.0 [facility] Comment on above: Order Comment: Speci men Type: BLOOD SPECIMENOrdering Facility: [facility] Address: [address] [place] [address] Performed By: #### 2 4323-8, 3, 03562-4 ####[facility] LABCLIA [id number] [address] [address] [place] Sodium [Moles/Vol] 139 mmol/L Normal 136-144 [facility] Comment on above: Order Comment: Speci men Type: BLOOD SPECIMENOrdering Facility: [facility] Address: [address] [place] [address] Performed By: #### 2 4323-8, 3, 51351-3 ####[facility] LABCLIA [id number] [address] [address] [place] Urea nitrogen [Mass/Vol] 47 mg/dL High 9-24 [facility] Comment on above: Order Comment: Speci men Type: BLOOD SPECIMENOrdering Facility: [facility] Address: [address] [place] [id number] Performed By: #### 2 4323-8, 3016-3, 19235-1 ####[facility] LABCLIA [id number] [place] [address] [place] Lipid 1996 panelon 4 Cholesterol [Mass/Vol] 119 mg/dL Normal <200 [facility] Comment on above: Order Comment: Speci men Type: BLOOD SPECIMENOrdering Facility: [facility] Address: [address] [place] [address] Result Comment: <200 mg/dL, Desirable 200-239 mg/dL, Borderline high>239 mg/dL, High Performed By: #### 2 4323-8, 3016-3, 77025-1 ####[facility] LABCLIA [id number] [address] [place] Cholesterol in HDL [Mass/Vol] 40 mg/dL Normal >39 [facility] Comment on above: Order Comment: Speci men Type: BLOOD SPECIMENOrdering Facility: [facility] Address: [address] [place] [address] Result Comment: 40-5 9 mg/dL, Acceptable>59 mg/dL, High: Negative risk factor for coronary heart disease<40 mg/dL, Low: Positive risk factor for coronary heart disease Performed By: #### 2 4323-8, 3016-3, 68527-2 ####[facility] LABCLIA [id number] [address] [place] Cholesterol in LDL [Mass/Vol] 62 mg/dL Normal <100 [facility] Comment on above: Order Comment: Speci men Type: BLOOD SPECIMENOrdering Facility: [facility] Address: [address] [place] [address] Result Comment: <100 mg/dL, Optimal 100-129 mg/dL, Near optimal/above optimal 130-159 mg/dL, Borderline high 160-189 mg/dL, High>189 mg/dL, Very highSecondary prevention optimal LDL Cholesterol levels are recommended to be < 70 mg/dL Performed By: #### 2 4323-8, 3016-3, 62713-1 ####[facility] LABCLIA [id number] [place] [address] [place] Cholesterol in LDL/Cholesterol in HDL [Mass ratio] 1.55 {ratio} Normal <2.54 [facility] Comment on above: Order Comment: Speci men Type: BLOOD SPECIMENOrdering Facility: [facility] Address: [address] [place] [address] Result Comment: Refe rence:1. National Cholesterol Education Program ATP III Guideline At-A-Glance Quick Desk Reference: National Heart, Lung, and Blood [place]. National Institutes of Health. 2001: NIH Publication No. 01-3305.2. An International Atherosclerosis Society position paper: global recommendations for the management of dyslipidemia: executive summary, Atherosclerosis. 2014: 232(2):410-413. Performed By: #### 2 4323-8, 3016-3, 88176-7 ####[facility] LABCLIA [id number] [place] [address] [place] Cholesterol in VLDL [Mass/Vol] 17 mg/dL Normal <30 [facility] Comment on above: Order Comment: Nahuni men Type: BLOOD SPECIMENOrdering Facility: [facility] Address: [address] [place] [address] Performed By: #### 2 4323-8, 3016-3, 53875-1 ####[facility] LABCLIA [id number] [place] [address] [place] Cholesterol non HDL [Mass/Vol] 79 mg/dL Normal <130 [facility] Comment on above: Order Comment: Speci men Type: BLOOD SPECIMENOrdering Facility: [facility] Address: [address] [place] [address] Result Comment: <130 mg/dL, Optimal 130-159 mg/dL, Near optimal/above optimal 160-189 mg/dL, Borderline high 190-219 mg/dL, High>219 mg/dL, Very highSecondary prevention optimal non HDL Cholesterol levels are recommended to be <100 mg/dL Performed By: #### 2 4323-8, 3016-3, 13901-1 ####[facility] LABCLIA [id number] [place] [address] [place] Cholesterol.total/Cho lesterol in HDL [Mass ratio] 2.98 {ratio} Normal <5.10 [facility] Comment on above: Order Comment: Speci men Type: BLOOD SPECIMENOrdering Facility: [facility] Address: [address] [place] [address] Performed By: #### 2 4323-8, 3016-3, 73645-0 ####[facility] LABIA [id number] [place] [address] [place] FASTING TIME 12 hrs Normal [facility] Comment on above: Order Comment: Speci men Type: BLOOD SPECIMENOrdering Facility: [facility] Address: [address] [place] [address] Performed By: #### 2 4323-8, 3016-3, 87981-2 ####[facility] LABIA [id number] [place] [address] [place] Triglyceride [Mass/Vol] 83 mg/dL Normal <150 [facility] Comment on above: Order Comment: Speci men Type: BLOOD SPECIMENOrdering Facility: [facility] Address: [address] [place] [address] Result Comment: <150 mg/dL, Normal 150-199 mg/dL, Borderline high 200-499 mg/dL, High>499 mg/dL, Very high Performed By: #### 2 4323-8, 3016-3, 85935-8 ####[facility] LABCLIA [id number] [place] [address] [place] TSH SerPl-aCncon 08-04-2024 TSH Qn 7.280 m[IU]/L High 0.270-4.200 [facility] Comment on above: Order Comment: Speci men Type: BLOOD SPECIMENOrdering Facility: [facility] Address: [address] [place] [address] Performed By: #### 2 4323-8, 3016-3, 77028-9 ####[facility] LABCLIA [id number] [address] [place] [address] [place] CNPNon 08-01-2024 CNPN Normal [facility] Surgery Visit Reporton 07-26 Surgery Visit Report Normal [facility] CNPTOUTREACHon 07-24-2024 CNPTOUTREACH Normal [facility] CNPTOUTREACHon 07-22-2024 CNPTOUTREACH Normal [facility] CNOVon 07-17-2024 CNOV Normal [facility] 12 Lead EKGon 07-11-2024 12 Lead EKG Normal [facility] Abdomen/Pelvis W IV Cont ONL Yon 07-11-2024 Abdomen/Pelvis W IV Cont ONLY Normal [facility] Basic Metabolic Profile (BMP )on 07-11-2024 BUN/CRE 25.2 RATIO High - [facility] Comment on above: Performed By: #### L 100.0100, L500.2500 ####[facility] [address] [facility] [place], [address] CA,Total 9.6 mg/dL Normal 8.5-10.1 [facility] Comment on above: Performed By: #### L 100.0100, L500.2500 ####[facility] [address] [place], [address] Chloride [Moles/Vol] 104 mmol/L Normal 98-107 [facility] Comment on above: Performed By: #### L 100.0100, L500.2500 ####[facility] [address] [place], [address] CO2 [Moles/Vol] 30.0 mmol/L Normal 21.0-32.0 [facility] Comment on above: Performed By: #### L 100.0100, L500.2500 ####[facility] [address] [place], [address] Creatinine [Mass/Vol] 1.63 mg/dL High 0.70-1.30 [facility] Comment on above: Result Comment: The validity of the calculated GFR GFRAA in patients over70 years has not been determined. Clinical correlation isessential. Performed By: #### L 100.0100, L500.2500 ####[facility] [address] [place], [address] ECRCL 32.64 ml/min Normal [facility] Comment on above: Performed By: #### L 100.0100, L500.2500 ####[facility] [address] [place], [address] EST GFR - AA 52 mL/min Low >60 [facility] Comment on above: Result Comment: Afri can Ethiopian GFR Calc Performed By: #### L 100.0100, L500.2500 ####[facility] [address] [place], [address] GAP 4 Low 5-15 [facility] Comment on above: Performed By: #### L 100.0100, L500.2500 ####[facility] [address] [place], [address] GFR/1.73 sq M.predicted among non-blacks MDRD (S/P/Bld) [Vol rate/Area] 43 mL/min/{1.73_m2} Low >60 [facility] Comment on above: Result Comment: Non- GFR Calc Performed By: #### L 100.0100, L500.2500 ####[facility] [address] [place], [address] Glucose [Mass/Vol] 118 mg/dL High 74-106 [facility] Comment on above: Result Comment: Fast ing Glucose result from 100 to 125 mg/dLsuggests IMPAIRED HOMEOSTASIS per A.D.A. criteria. Performed By: #### L 100.0100, L500.2500 ####[facility] [address] [place], [address] Potassium [Moles/Vol] 4.1 mmol/L Normal 3.5-5.1 [facility] Comment on above: Performed By: #### L 100.0100, L500.2500 ####[facility] [address] [place], [address] Sodium [Moles/Vol] 138 mmol/L Normal 136-145 [facility] Comment on above: Performed By: #### L 100.0100, L500.2500 ####[facility] [address] [place], [address] Urea nitrogen [Mass/Vol] 41 mg/dL High 7-18 [facility] Comment on above: Performed By: #### L 100.0100, L500.2500 ####[facility] [address] [place], [address] CBC W/Diff, Automatedon 10-2 -2023 Absolute Lymph 0.90 X10 3/uL Normal 0.83-4.51 [facility] Comment on above: Performed By: #### L 100.0100, L500.2500 ####[facility] [address] [place], [address] Absolute Neut 4.8 X10 3/uL Normal 2.0-7.7 [facility] Comment on above: Performed By: #### L 100.0100, L500.2500 ####[facility] [address] [place], [address] Basophils/100 WBC (Bld) 0.5 % Normal 0-1 [facility] Comment on above: Performed By: #### L 100.0100, L500.2500 ####[facility] [address] [place], [address] Eosinophils/100 WBC (Bld) 1.7 % Normal 0-5 [facility] Comment on above: Performed By: #### L 100.0100, L500.2500 ####[facility] [address] [place], [address] Erythrocyte distribution width (RBC) [Ratio] 15.0 % High 11.6-14.6 [facility] Comment on above: Performed By: #### L 100.0100, L500.2500 ####[facility] [address] [place], [address] Hematocrit (Bld) [Volume fraction] 36.3 % Low 40-54 [facility] Comment on above: Performed By: #### L 100.0100, L500.2500 ####[facility] [address] [place], [address] Hemoglobin (Bld) [Mass/Vol] 11.8 g/dL Low 13.0-16.5 [facility] Comment on above: Performed By: #### L 100.0100, L500.2500 ####[facility] [address] [place], [address] IG% 0.500 Normal 0.0-0.9 [facility] Comment on above: Result Comment: IG% - Immature Granulocytes (promyelocytes, myelocytes andmetamyelocytes) > 1% indicates that a LEFT SHIFT is Present. Performed By: #### L 100.0100, L500.2500 ####[facility] [address] [place], [address] Lymphocytes/100 WBC (Bld) 13.9 % Low 19-41 [facility] Comment on above: Performed By: #### L 100.0100, L500.2500 ####[facility] [address] [place], [address] MCH (RBC) [Entitic mass] 29.9 pg Normal 27.0-32.0 [facility] Comment on above: Performed By: #### L 100.0100, L500.2500 ####[facility] [address] [place], [address] MCHC (RBC) [Mass/Vol] 32.5 g/dL Normal 32-36 [facility] Comment on above: Performed By: #### L 100.0100, L500.2500 ####[facility] [address] [place], [address] MCV (RBC) [Entitic vol] 91.9 fL Normal 80-94 [facility] Comment on above: Performed By: #### L 100.0100, L500.2500 ####[facility] [address] [place], [address] Monocytes/100 WBC (Bld) 9.3 % Normal 0-10 [facility] Comment on above: Performed By: #### L 100.0100, L500.2500 ####[facility] [address] [place], [address] Neutrophils/100 WBC (Bld) 74.1 % High 47-70 [facility] Comment on above: Performed By: #### L 100.0100, L500.2500 ####[facility] [address] [place], [address] Nucleated RBC (Bld) [#/Vol] 0 10*3/uL Normal 0-5 [facility] Comment on above: Performed By: #### L 100.0100, L500.2500 ####[facility] [address] [place], [address] Platelet mean volume (Bld) [Entitic vol] 10.7 fL Normal 6.2-12.0 [facility] Comment on above: Performed By: #### L 100.0100, L500.2500 ####[facility] [address] [place], [address] Platelets (Bld) [#/Vol] 107 10*3/uL Low 150-450 [facility] Comment on above: Performed By: #### L 100.0100, L500.2500 ####[facility] [address] [place], [address] RBC (Bld) [#/Vol] 3.95 10*6/uL Low 4.6-6.2 [facility] Comment on above: Performed By: #### L 100.0100, L500.2500 ####[facility] [address] [place], [address] RDW SD 51.2 fl High 35.1-43.9 [facility] Comment on above: Performed By: #### L 100.0100, L500.2500 ####[facility] [address] [place], [address] WBC (Bld) [#/Vol] 6.5 10*3/uL Normal 4.4-11.0 [facility] Comment on above: Performed By: #### L 100.0100, L500.2500 ####[facility] [address] [place], [address] CNOVon 07-11-2024 CNOV Normal [facility] Chest PA and Lateralon 07-11 Chest PA and Lateral Normal [facility] Emergency Department Summary on 07-11-2024 Emergency Department Summary Normal [facility] MR/BMS.BVSon 07-07-2024 MR/BMS.BVS Normal [facility] CNPTOUTREACHon 06-22-2024 CNPTOUTREACH Normal [facility] No Panel Informationon 02-08 Radiology Study observation (narrative) [facility] XR Shoulder - left 3 Viewson 02-09-2024 IMPRESSION: Degenerative changes as described. Shoe [employer] Associate: NATALY Transcribe Date/Time: Feb 09 2024 4:46P Dictated by : JACKELIN KHAN MD This examination was interpreted and the report reviewed and electronically signed by: JACKELIN KHAN MD on Feb 09 2024 4:47PM [facility] DIVISION OF RADIOLOGY * * *Final Report* [...] exposure partially visualized. DIVISION OF RADIOLOGY Provider, [facility] - 02/09/2024 * * *Final Report* [...] visualized. IMPRESSION IMPRESSION: Degenerative changes as described. Shoe Stock Associate: [facility] Transcribe Date/Time: Feb 09 2024 4:46P Dictated by : JACKELIN KHAN MD This examination was interpreted and the report reviewed and electronically signed by: JACKELIN KHAN MD on Feb 09 2024 4:47PM EST [facility] XR Shoulder - right 3 Viewso 02-09-2024 IMPRESSION: Degenerative changes as described. Shoe Stock Associate[facility] Transcribe Date/Time: Feb 09 2024 4:47P Dictated by : JACKELIN KHAN MD This examination was interpreted and the report reviewed and electronically signed by: JACKELIN KHAN MD on Feb 09 2024 4:48PM [facility] DIVISION OF RADIOLOGY * * *Final Report* [...] exposure. IMPRESSION IMPRESSION: Degenerative changes as described. Shoe Stock Associate[facility] Transcribe Date/Time: Feb 09 2024 4:47P Dictated by : JACKELIN KHAN MD This examination was interpreted and the report reviewed and electronically signed by: JACKELIN KHAN MD on Feb 09 2024 4:48PM EST [facility] XR Shoulder - right 3 ViewsO rdered By: [facility] Provider on 02-09-2024 [facility] No Panel InformationOrdered By: Jovanny Rodriguez on 08-03-2023 Endomysial IgA Antibody Negative Negative [facility] Serum IgA measurement (units /volume)Ordered By: Jovanny Rodriguez on 08-03-2023 IgA Qn (S) 362 mg/dL 61-437 [facility] Comment on above: [facility] [place], [place] [id number] Director: Jovanny Walden PhD, Phone: [phone] Serum or plasma C reactive p rotein measurement (mass/volume)Ordered By: Jovanny Rodriguez on 08-03-2023 CRP [Mass/Vol] mg/L 0.0-3.0 [facility] Comment on above: C-Reactive Protein ( CRP) provides useful information for thediagnosis, therapy and monitoring of inflammatory processesand associated diseases. For the evaluation of Relative Riskfor Cardiovascular Disease, a High Sensitivity CRP (HSCRP)should be ordered. Serum tissue transglutaminas e IgA antibody assay (units/volume)Ordered By: Jovanny Rodriguez on 08-03-2023 tTG IgA Qn (S) <2 U/mL 0-3 [facility] Comment on above: Negative 0 - 3 Weak Positive 4 - 10 Positive >10 Tissue Transglutaminase (tTG) has been identified as the endomysial antigen. Studies have demonstr- ated that endomysial IgA antibodies have over 99% specificity for gluten sensitive enteropathy. Basophil percentageOrdered B y: Benita Reece on 05-26-2023 Creatinine [Mass/Vol] 1.1 mg/dL 0.70-1.30 [facility] No Panel InformationOrdered By: Benita Reece on 05-26-2023 Bedside Estimated GFR (eGFR) > 60.0000 mL/min >60 [facility] Basophil percentageOrdered B y: Omid Perez on 04-19-2023 Chloride [Moles/Vol] 104 mmol/L 98-107 [facility] Glucose [Mass/Vol] 102 mg/dL 74-106 [facility] Comment on above: Fasting Glucose resu lt from 100 to 125 mg/dL suggests IMPAIRED HOMEOSTASIS per A.D.A. criteria. Potassium [Moles/Vol] 3.7 mmol/L 3.5-5.1 [facility] Sodium [Moles/Vol] 139 mmol/L 136-145 [facility] Laboratory - Chemistry and C hemistry - challengeOrdered By: Omid Perez on 04-19-2023 CO2 [Moles/Vol] 33.0 mmol/L 21.0-32.0 [facility] Urea nitrogen/Creatinine [Mass ratio] 18.7 mg/mg 10-20 [facility] No Panel InformationOrdered By: Omid Perez on 04-19-2023 Estimated GFR (MDRD) Amer 57 mL/min >60 [facility] Comment on above: GFR Calc Estimated GFR (MDRD) Non-Af Amer 48 mL/min >60 [facility] Comment on above: Non- GFR Calc Serum or plasma calcium jossie urement (mass/volume)Ordered By: Omid Perez on 04-19-2023 Calcium [Mass/Vol] 8.9 mg/dL 8.5-10.1 [facility] Serum or plasma creatinine m easurement (mass/volume)Ordered By: Omid Perez on 04-19-2023 Creatinine [Mass/Vol] 1.50 mg/dL 0.70-1.30 [facility] Comment on above: The validity of the calculated GFR & GFRAA in patients over 70 years has not been determined. Clinical correlation is essential. Serum or plasma urea nitroge n measurement (mass/volume)Ordered By: Omid Perez on 04-19-2023 Urea nitrogen [Mass/Vol] 28 mg/dL 7-18 [facility] Thin prep Papanicolaou smear with manual screeningOrdered By: Omid Perez on 04-19-2023 Thin prep Papanicolaou smear with manual screening 2 5-15 [facility] Absolute lymphocyte countOrd ered By: Omid Perez on 04-08-2023 Lymphocytes Auto (Unsp spec) [#/Vol] 1.37 10*3/uL 0.83-4.51 [facility] Basophil percentageOrdered B y: Omid Perez on 04-08-2023 Basophils/100 WBC (Bld) 0.3 % 0-1 [facility] Chloride [Moles/Vol] 108 mmol/L 98-107 [facility] Eosinophils/100 WBC (Bld) 1.6 % 0-5 [facility] Glucose [Mass/Vol] 96 mg/dL 74-106 [facility] Neutrophils (Bld) [#/Vol] 6.3 10*3/uL 2.0-7.7 [facility] Neutrophils/100 WBC (Bld) 71.5 % 47-70 [facility] Potassium [Moles/Vol] 3.6 mmol/L 3.5-5.1 [facility] Sodium [Moles/Vol] 142 mmol/L 136-145 [facility] WBC (Bld) [#/Vol] 8.8 10*3/uL 4.4-11.0 [facility] Blood erythrocytes count (nu mber/volume)Ordered By: Omid Perez on 04-08-2023 RBC (Bld) [#/Vol] 3.95 10*6/uL 4.6-6.2 [facility] Blood hemoglobin measurement (mass/volume)Ordered By: Omid Perez on 04-08-2023 Hemoglobin (Bld) [Mass/Vol] 11.8 g/dL 13.0-16.5 [facility] Blood lymphocytes/100 leukoc ytesOrdered By: Omid Perez on 04-08-2023 Lymphocytes/100 WBC (Bld) 15.5 % 19-41 [facility] Blood monocytes/100 leukocyt esOrdered By: Omid Perez on 04-08-2023 Monocytes/100 WBC (Bld) 9.7 % 0-10 [facility] Blood platelet mean volumeOr dered By: Omid Perez on 04-08-2023 Platelet mean volume (Bld) [Entitic vol] 10.5 fL 6.2-12.0 [facility] Determination of erythrocyte mean corpuscular volume (MCV)Ordered By: Omid Perez on 04-08-2023 MCV (RBC) [Entitic vol] 92.2 fL 80-94 [facility] Hematocrit Auto (Bld) [Volum e fraction]Ordered By: Omid Perez on 04-08-2023 Hematocrit (Bld) [Volume fraction] 36.4 % 40-54 [facility] Laboratory - Chemistry and C hemistry - challengeOrdered By: Omid Perez on 04-08-2023 CO2 [Moles/Vol] 28.0 mmol/L 21.0-32.0 [facility] Urea nitrogen/Creatinine [Mass ratio] 18.0 mg/mg 10-20 [facility] Laboratory - Hematology and Cell countsOrdered By: Omid Perez on 04-08-2023 Erythrocyte distribution width (RBC) [Entitic vol] 51.8 fL 35.1-43.9 [facility] Erythrocyte distribution width (RBC) [Ratio] 15.3 % 11.6-14.6 [facility] Immature granulocytes/100 WBC (Bld) 1.400 % 0.0-0.9 [facility] Comment on above: IG% - Immature Granu locytes (promyelocytes, myelocytes and metamyelocytes) > 1% indicates that a LEFT SHIFT is Present. MCH (RBC) [Entitic mass] 29.9 pg 27.0-32.0 [facility] Nucleated RBC/100 WBC (Bld) [Ratio] 0 % 0-5 [facility] MCHC Auto (RBC) [Mass/Vol]Or dered By: Omid Perez on 04-08-2023 MCHC (RBC) [Mass/Vol] 32.4 g/dL 32-36 [facility] No Panel InformationOrdered By: Omid Perez on 04-08-2023 Estimated Creatinine Clearance Calc 48.78 ml/min [facility] Estimated GFR (MDRD) Amer 81 mL/min >60 [facility] Comment on above: GFR Calc Estimated GFR (MDRD) Non-Af Amer 67 mL/min >60 [facility] Comment on above: Non- GFR Calc Platelets bldOrdered By: Karthikeyan Perez on 04-08-2023 Platelets (Bld) [#/Vol] 107 10*3/uL 150-450 [facility] Serum or plasma calcium jossie urement (mass/volume)Ordered By: Omid Perez on 04-08-2023 Calcium [Mass/Vol] 8.2 mg/dL 8.5-10.1 [facility] Serum or plasma creatinine m easurement (mass/volume)Ordered By: Omid Perez on 04-08-2023 Creatinine [Mass/Vol] 1.11 mg/dL 0.70-1.30 [facility] Comment on above: The validity of the calculated GFR & GFRAA in patients over 70 years has not been determined. Clinical correlation is essential. Serum or plasma urea nitroge n measurement (mass/volume)Ordered By: Omid Perez on 04-08-2023 Urea nitrogen [Mass/Vol] 20 mg/dL 7-18 [facility] Thin prep Papanicolaou smear with manual screeningOrdered By: Omid Perez on 04-08-2023 Thin prep Papanicolaou smear with manual screening 6 5-15 [facility] No Panel InformationOrdered By: Omid Perez on 04-07-2023 Activated Clotting Time 143 sec 74-137 [facility] INR in Blood by Coagulation assayOrdered By: Dieter Christianson on 04-01-2023 INR Coag (Bld) [Relative time] 1.1 {INR} [facility] Laboratory - CoagulationOrde red By: Dieter Christianson on 04-01-2023 aPTT Coag (Bld) [Time] 43.0 s 24.1-36.2 [facility] PT Coag (PPP) [Time] 14.3 s 11.7-14.9 [facility] Basophil percentageOrdered B y: Dieter Christianson on 03-29-2023 Basophil percentage 2.4 mg/dL 2.5-4.9 [facility] Bilirubin [Mass/Vol] 0.60 mg/dL 0.20-1.00 [facility] Comment on above: For patients on eltr ombopag therapy, use of Dimension Bricelyn TBIL is not recommended. Protein [Mass/Vol] 6.8 g/dL 6.4-8.2 [facility] Direct bilirubinOrdered By: Dieter Christianson on 03-29-2023 Bilirubin.direct [Mass/Vol] 0.17 mg/dL 0.00-0.30 [facility] Laboratory - Chemistry and C hemistry - challengeOrdered By: Dieter Christianson on 03-29-2023 ALP [Catalytic activity/Vol] 64 U/L 45-117 [facility] ALT [Catalytic activity/Vol] 22 U/L 16-61 [facility] Globulin (S) [Mass/Vol] 3.4 g/dL 2.2-4.2 [facility] Magnesium [Mass/Vol] 2.3 mg/dL 1.6-2.6 [facility] Serum or plasma albumin jossie urement (mass/volume)Ordered By: Dieter Christianson on 03-29-2023 Albumin [Mass/Vol] 3.4 g/dL 3.2-5.0 [facility] Thin prep Papanicolaou smear with manual screeningOrdered By: Dieter Christianson on 03-29-2023 Thin prep Papanicolaou smear with manual screening 19 U/L 15-37 [facility] Basophil percentageOrdered B y: Omid Perez on 02-23-2023 Chloride [Moles/Vol] 107 mmol/L 98-107 [facility] Glucose [Mass/Vol] 92 mg/dL 74-106 [facility] Potassium [Moles/Vol] 3.6 mmol/L 3.5-5.1 [facility] Sodium [Moles/Vol] 140 mmol/L 136-145 [facility] Laboratory - Chemistry and C hemistry - challengeOrdered By: Omid Perez on 02-23-2023 CO2 [Moles/Vol] 30.0 mmol/L 21.0-32.0 [facility] Urea nitrogen/Creatinine [Mass ratio] 24.8 mg/mg 10-20 [facility] No Panel InformationOrdered By: Omid Perez on 02-23-2023 Estimated GFR (MDRD) Amer 64 mL/min >60 [facility] Comment on above: GFR Calc Estimated GFR (MDRD) Non-Af Amer 53 mL/min >60 [facility] Comment on above: Non- GFR Calc Serum or plasma calcium jossie urement (mass/volume)Ordered By: Omid Perez on 02-23-2023 Calcium [Mass/Vol] 9.2 mg/dL 8.5-10.1 [facility] Serum or plasma creatinine m easurement (mass/volume)Ordered By: Omid Perez on 02-23-2023 Creatinine [Mass/Vol] 1.37 mg/dL 0.70-1.30 [facility] Comment on above: The validity of the calculated GFR & GFRAA in patients over 70 years has not been determined. Clinical correlation is essential. Serum or plasma urea nitroge n measurement (mass/volume)Ordered By: Omid Perez on 02-23-2023 Urea nitrogen [Mass/Vol] 34 mg/dL 7-18 [facility] Thin prep Papanicolaou smear with manual screeningOrdered By: Omid Perez on 02-23-2023 Thin prep Papanicolaou smear with manual screening 3 5-15 [facility] SURGICAL PATHOLOGYOrdered By : Matt Culp on 01-18-2023 Case Report Surgical Pathology R eport Case: [id number] Authorizing Provider: Lisa Rodriguez MD Collected: 01/15/2023 11:33 AM Ordering Location: Ambulatory Surgery Received: 01/15/2023 08:54 PM Pathologist: Matt Culp MD Specimen: COLON BIOPSY, random [facility] Work Phone: FINAL DIAGNOSIS a4pjjONaALDbcNNqVVGp NVxhbn GjPVXmwRJbH0YxiqlwLSqlXP5n LC3wvWohhEIknKRdBRWvIjNif0 mdn040bJAez6xoFYAIzgtxnSq3 dOoeD25hd3R2EzfqO07qjOGfDB F6EYNjKKPyqIZnCAUsGHZ6DHLa kCOuJ6teEDQcNR9vrnpqHZdpIY vsHGUzjKY4WAYqwQOrJ5FfFITl KJkhJAWrcca1IqAnIo8ajHHykY cyMFxwYXJkXHBsYWluXGZzMjAg GnEpDF6nUFFauW9gGMOwvW1pl0 a3BHgvozRrKROYo6ecLPgaqa25 fnApw7vdlJatZxcpION1 [facility] Work Phone: Gross Description s3paiZFjBRCbtFYLUAXb MDRcYW 9dmMgzjBo4xLadIFEypsH6aCPo AEcnh9qwWDR9p9keozTLAkomAH GgOUmwCXWwqrfhXnS5PMavEYTs oggwQSz5CRyiNIYbpZW0NBRbeT LeJ1YgODBlMK6ekjy1LNF1WHra JKXxPpK9GXAgAvWvOjtmCIh7TD VjdaN1Zvv9IQFaWDOkiLUsn9Z7 CNtdtkpnNGKyvEPhF621LHizb5 VjdGQgDQpccGFyZCANCntcKlxl iLkvm8OciWCtELnaVGVfBDIeHS fcqzwkOIt7XMMlDVeioDJfJF9h sLmcSriscStqk4HjdLYeOMakQM IzTLHdHExtWTUyQM8CVbZbYYCw SSH1IOBzIpR0YWn5GXBTZxSaWi VkGbT8HdxyKzLmQDg8HDn6IHzB VkOdXTK5BcK3XtByMNP0OJkiHD BcXHQgMiBcXGYgQXJpYWwgXFxm eHFtSC6srFnndETssaIDYyPNW4 iHAgUTIN7VW0enwOPjKN3LKLLz eSTIIZQ1HR7qCKBWHxtsfSZfGX AumDulTWrcpO0yUF4CGQa8xiHh GKCeGwVgOaFpKPw2EDQitV6yFl 2itVIhcW0kAUZeFJ92eZPsnEsz OCXbPUSusnKeNoJ8SB2zMNGdKu YreLshw2KsWJBiY7BsR6U1mT6d BQKrMDLuJuZ1PLGqDXJ7RFGfIg BzlU1hPT29BOjvzNKziVHvdFK8 JVMslN8lCc2kvBXzxY0nbI0hhA jbOWCex7ExdPWsld5rFMTczdJC ClxwYXIgDQpccGFyZFxsdHJwYX CfqMo1NmWaQJ9HB5Hej6KhQErh yZzdDBPpr35whOOoKw3spUGqJB A0AIKrJCSvdCEdEBOKpAoxqAFl DQm0DWAaMOQjgPblCYG9NE3eCC AsRFFcqMTcZXljM5orOQEjCEDn xYGjRD6TKJGslyYHDaqDQHU5Ay Q8FtZmKjYfWHV2HwoaMA4ifKIr DQ5BNVLsnjIkjZKelNWoNI2ADP EcbTCIUQS3AJ9fRNp9FHhtOWQr G1UiL2HyabKmyTZeMFJdoeDht9 msFSD4NDPmrOHwxKFoFsEkUkuf EZX4CHFwYHyfQG4FWPBrBJY2HB kcmQ31qSCcPX2LACAxFLfiCABk BYSjoyD8KADiqFYjDHM1ZJ2asY pdrUYcfrfdvdR8WL8WnV== [facility] Work Phone: Performing Lab r6ellQBoHTSmuJKoFiIr MDAwXG Ksb1vdXYPxaNXxDoUgKiWpGgNa RpeblHQjFEBtStPrk6jqm982lY Cni0aaVOSgDfN8vSUrGFTdpNIl Q673RDOvSRwou3hiv8WbJERnsW Ywx3H2WSDSinkxtSw3zGbdH98y c8A6KpzdS7dfFQPbWORjW1IiIF 9mOBHkAoz2VKB4JKA2CJUrANSq L9YlUK8uOWSisYRvOTp8s0resB zcSZCbKTH4a1dpMAqqhbYvKN0w wk8iiLk9s7xmhtPbSYGkHGNexD OCFWYxS4OneNbqLf8yoVc6bImk MxmyDHM6Fzs4HX0iny12exo0fT tfVWApbnsnBjN7XPquBXPguyhe WSt3WLdbTDQasAI1VEFceDKjQ2 RrIEujLG7ylvt5GGS7WRlvWMZt SuZ2LMWfmLYcKIQqmOscUTtao7 90WJQ1SzLvDY6aR1Scp0P2lP2q lUKxVRWzxDEcMeYaTKAcgr1dqJ WvMVjpf0RxSCB6srD6vXYhyNFt OWMuNE50Csbiu5VhMzcsg4ExH7 4bhYX1IDytf7htNU1wTnX4rtMe WKulm0khgX6aPlW7RXreHU5qIP 2iBIRwvV3dnffgKCLlLrTpkhpo PELdtEsquxEhNm6uuWzjHOA2OX oqZ3lveV9oNgH3IFlhJ6fzpG4e CIm1CArzqXX0AQPhuM7xEA2acu hxj8nfIRvoGSyrKJGgojF0hpHi RNXzpFKyZ4WqpJ0qETYcYY7nuh dsr5yvGXO1EHpmDANcHQA6AzFm RRYzs5Kfjpy2UhFxq3CnyQWwPJ qjF96rk415RHQnlyJqH7ajvDUc qioovUHbbwxuHLviemA6BSJvOK BsYWluXGYxXGZzMjJcbGFuZzEw MzNcaGljaFxmMVxkYmNoXGYxXG zhZ2fwEeCoDuJsYvLAqQWgpa8j pGuwIDwpwCCvvNBuiZR5dB8gCA SihyEshs3vGUKmoUXYzLC6MXfb mhYfV2uflxomWCE5SFTmMHW9L4 xpZCBBdmUsIENsZXZlbGFuZCBP CYW9DAH5IBZrNESLIJNyREY7NJ S8UTLuRPAikQZqKYGqdhwfETMh XHBsYWluXGYwXGZzMjRccGxhaW 3kZaVvEuPePntrGZ8kJGZyH6xg uWWzVQKeJXUlX2phAlLmtH9abX xmMVxjZjJcZnMyMlxsdHJjaCBM DGIensV7a3Y0WHepjDYdufhcHX dklpBcDVsvmfwpGPTlIEseX0yt JjRuTLRcyEfqCUlfo8WxNZKdQY FlCnHkEYaeJWX4p0L6PAihzENj kbNVIhVPGO7ogHJooifdMX1ZHj xwYXJ9 [facility] Work Phone: [facility] Work Phone: Flexible sigmoidoscopy study on 01-15-2023 [facility] Patient Name: Leana Camejo Procedure Date: 01/15/2023 11:19 AM Date of : 1940 Admit Type: Outpatient Age: 83 Room: [place] [address] Gender: Male Note Status: Finalized Attending MD: [...] by the physician, the nurse and the industrial ecology technician in the pre-procedure area in the endoscopy [...] entire examined (more content not included)... PR[employer]ATION [facility] Radiology Study observation (narrative) [facility] CULTURE ANAEROBEon 9 CULTURE ANAEROBE CULTURE ANAEROBE --> Status: F No growth of anaerobes at 5 days. Normal [facility] Comment on above: Performed By: #### C XFLD, C/CAITLYN #### [facility] [address], [place] Basic Metabolic Panelon 10-3 0-2019 Anion gap [Moles/Vol] 7 Normal [facility] Comment on above: Performed By: #### B MP3 #### [facility] [address], [place] Calcium [Mass/Vol] 9.0 mg/dL Normal 8.4-10.4 [facility] Comment on above: Performed By: #### B MP3 #### [facility] [address], [place] CO2 [Moles/Vol] 25 mmol/L Normal 22-30 [facility] Comment on above: Performed By: #### B MP3 #### [facility] [address], [place] Glucose [Mass/Vol] 107 mg/dL High 70-100 [facility] Comment on above: Performed By: #### B MP3 #### [facility] [address] [place], [place] Urea nitrogen [Mass/Vol] 25 mg/dL High 7-20 [facility] Comment on above: Performed By: #### B MP3 #### [facility] [address] [place], [place] Creatinine [Mass/Vol] 1.17 mg/dL Normal 0.52-1.25 [facility] Comment on above: Performed By: #### B MP3 #### [place] [address] [address] [place], [place] GFR/1.73 sq M predicted among blacks MDRD (S/P/Bld) [Vol rate/Area] mL/min/{1.73_m2} Normal >60 [facility] Comment on above: Performed By: #### B MP3 #### [facility] [address] [place], [place] GFR/1.73 sq M predicted among non-blacks MDRD (S/P/Bld) [Vol rate/Area] mL/min/{1.73_m2} Normal >60 [facility] Comment on above: Result Comment: Sour ce- MDRD equation with creatinine calibration to IDMS(NKDEP) eGFR not recommended for drug dose adjustment Performed By: #### B MP3 #### [facility] [address] [place], [place] Potassium [Moles/Vol] 3.8 mmol/L Normal 3.5-5.1 [facility] Comment on above: Performed By: #### B MP3 #### [facility] [address] [place], [place] Sodium [Moles/Vol] 138 mmol/L Normal 135-145 [facility] Comment on above: Performed By: #### B MP3 #### [place] [address] [address] [place], [place] Chloride [Moles/Vol] 106 mmol/L Normal 98-107 [facility] Comment on above: Performed By: #### B MP3 #### [facility] [address] [place] [address] Anion gap [Moles/Vol] 7 mmol/L [place], [place] Calcium [Mass/Vol] 9.0 mg/dL 8.4 - 10. 4 mg/dL [place], [place] Chloride [Moles/Vol] 106 mmol/L 98 - 10 7 mmol/L [place] CO2 [Moles/Vol] 25 mmol/L 22 - 30 mmol/L [place] Creatinine [Mass/Vol] 1.17 mg/dL 0.52 - 1.25 mg/dL [place] EGFR IF NonAfrican Ethiopian >60.0 >60 mL/min [place] Comment on above: Source- MDRD equatio n with creatinine calibration to IDMS(NKDEP) eGFR not recommended for drug dose adjustment GFR/1.73 sq M predicted among blacks MDRD (S/P/Bld) [Vol rate/Area] mL/min/{1.73_m2} >60 mL/min [place] Glucose [Mass/Vol] 107 mg/dL High 70 - 100 mg/dL [place] Interpretation and review of laboratory results Abnormal [place] Potassium [Moles/Vol] 3.8 mmol/L 3.5 - 5.1 mmol/L [place] Sodium [Moles/Vol] 138 mmol/L 135 - 145 mmol/L [place] Urea nitrogen [Mass/Vol] 25 mg/dL High 7 - 20 mg/dL [place] Test Performed by [facility], [address] [place] [id number] [place], [place] CT Aspiration Fine Needleon 07-19-2019 CT Aspiration Fine Needle Patient Name: LEANA CAMEJO CT Exam Date/Time 07/19/2019 09:16:[address] Aspiration Ordering Physician MD PEYTON, YARIEL Durán Accession Number [id number] CPT4 Codes 85870 (), 76270 () Reason For Exam ileopsoas abscess Report [...] Transcribed Date and Time: 07/19/2019 9:25 Normal [facility] CT GUIDED NEEDLE ASPIRATION OR INJECTIONon 07-19-2019 Patient Name: LEANA CAMEJO ---CT--- Exam Date/Time 07/19/2019 09:16:[address] Aspiration Ordering Physician MD PEYTON, YARIEL Durán Accession Number [id number] CPT4 Codes 70645 (), 32236 () Reason For Exam ileopsoas abscess Report [...] WILLIAM Transcribed Date and Time: 07/19/2019 9:25 [place], [place], [facility] Incoming Radiology Results From [facility] - 07/19/2019 9:31 AM EDT Patient Name: LEANA CAMEJO ---CT--- Exam Date/Time 07/19/2019 09:16:[address] Aspiration Ordering Physician MD BLAS TYLER M Accession Number [id number] CPT4 Codes 76350 (), 39378 () Reason For Exam ileopsoas abscess Report [...] WILLIAM Transcribed Date and Time: 07/19/2019 9:25 [place] CULTURE AND STAIN - FLUIDon 07-19-2019 CULTURE AND STAIN - FLUID CULTURE & STAIN - FLUID --> Status: F No growth at 3 days. STAIN GRAM --> Status: F Many polymorphonuclear cells/lpf. No organisms seen. No organisms seen. Normal [facility] Comment on above: Performed By: #### C Akila HOOD/CAITLYN #### [facility] [address] [place] [id number] .GFRon 06-16-2019 GFR 69 ml/min/1.73sqm Normal [facility] ([place]) Comment on above: Result Comment: GFR Population [...] Performed By: #### C RE, GFR #### [address] [address] GFR Non- 57 ml/min/1.73sqm Normal [facility] ([place]) Comment on above: Result Comment: GFR Population [...] Performed By: #### C RE, GFR #### [address] [address] CREon 06-16-2019 Creatinine [Mass/Vol] 1.23 mg/dL Normal 0.70-1.30 [facility] ([place]) Comment on above: Performed By: #### C RE, GFR #### [place] [id number] CNOVon 01-14-2018 CNOV Office Visit (AGCARDWST) LEANA CAMEJO ([id number]) 1940 MDate Time Provider Department01/14/18 10:30 AM [...] - N/ABeta adrienne for ASHD with prior UT or prior LVEFANDlt;40 (NQF 0070) - N/ABeta [...] tab Take 1 tablet by mouth once daily.he-5-qqq-epa-D3-B12- FA-B-6-phy (ANIMI-3 WITH VITAMIN D) 500-1,436-123fp-mhqt-mcg cap Take 1,000 Units by mouth twice daily.Fish,Saf,Flx,Brg Oils-O3,6,9#2 [phone] mg cap Take 6 capsules by mouthonce daily.Flaxseed Oil 1,000 mg ORAL Cap Take by mouth.gabapentin (NEURONTIN) 300 mg capsule Take 1 capsule by mouth twice daily.Ipratropium Cataula (ATROVENT) 0.03 % nasal spray Use 2 [...] function is stableElectronically Signed:Leigha Duckworth 2017 10:43 [facility]: Diogenes Preciado MD 01/14/2018 10:44 AM SignedDecrease amlodipine to 5 mg daily.Start carvedilol 6.25 mg twice a dayCall next week with list of your vital signsIf increased HR continues, we will do a heart monitorReferring Provider: SELF [[id number]]Allergies As of Date: 01/14/2018 Noted Allergy ReactionCLONIDINE 07/21/2005CRESTOR (ROSUVASTATIN CALCIUM) 07/21/2005LIPITOR (ATORVASTATIN CALCIUM) 07/21/2005LISINOPRIL 02/10/2017 2 - RashSTATINS (VSCJBPE-PZA-GWH REDUCTAS*07/15/2006Date Reviewed: 09/09/2017Reviewed by: Benita Muse) Tanisha [...] Take 1 tablet by mouth once d* MNPIO-8-SIQ-ZEM-G2-Z90-FA- B6-* Take 1,000 Units by mouth twi* [...] Status:Closed by MOODY MONTES MD on 01/14/18 [facility] PROGRESSon 01-14-2018 PROGRESS HNO ID: [id number] thor: Moody Yuan: (none)Author Type: PhysicianType: Progress NotesFiled: 01/14/2018 5:45 PMNote Text:PERTINENT CARDIAC HISTORYHTNHL - statin intolerantCHF - diastolicVPDsCRFRSV infectionAllergy to lisinopril - rashADHERENCE TO GUIDELINESACE-I or ARB for HF with prior LVEF<40 (NQF 0081) - N/AASA or Plavix for ASHD (NQF 0067) - N/ABeta adrienne for ASHD with prior UT or prior LVEF<40 (NQF 0070) - N/ABeta [...] plant based diet - lifestyle recommendationformCLINICAL IMPRESSION/PLAN:Leana Cameoj has mild worsening of pedal edema, although [...] tab Take 1 tablet by mouth once daily.ym-8-aqg-epa-D3-B12- FA-B-6-phy (ANIMI-3 WITH VITAMIN D) 500-1,617-568fg-wipg-mcg cap Take 1,000 Units by mouth twice daily.Fish,Saf,Flx,Brg Oils-O3,6,9#2 [phone] mg cap Take 6 capsules bymouth once daily.Flaxseed Oil 1,000 mg ORAL Cap Take by mouth.gabapentin (NEURONTIN) 300 mg capsule Take 1 capsule by mouth twice daily.Ipratropium Cataula (ATROVENT) 0.03 % nasal spray Use 2 [...] function is stableElectronically Signed:Leigha Duckworth 2017 10:43 [facility]: Gavin Hope MD [facility] CNOVon 09-09-2017 CNOV Office Visit (AGCARDWST) LEANA CAMEJO ([id number]) 1940 MDate Time Provider Lfsrudbcju74/21/17 8:30 AM MOODY MONTES During your visit [...] - N/ABeta adrienne for ASHD with prior UT or prior LVEFANDlt;40 (NQF 0070) - N/ABeta [...] with treatment plan.This note was generated using [employer] voice recognition system, and there may besome [...] tab Take 1 tablet by mouth once daily.tw-2-ntw-epa-D3-B12- FA-B-6-phy (ANIMI-3 WITH VITAMIN D) 500-1,911-787ll-tzop-mcg cap Take 1,000 Units by mouth twice daily.Fish,Saf,Flx,Brg Oils-O3,6,9#2 [phone] mg cap Take 6 capsules by mouthonce daily.Flaxseed Oil 1,000 mg ORAL Cap Take by mouth.Ipratropium Cataula (ATROVENT) 0.03 % nasal spray Use 2 [...] UPPER EYELID 2012- COLONOSCOP W/ OR W/O [facility] SPEC 03/18/01 anemia- COLONOSCOP W/ OR W/O [facility] SPEC 05/13/10 repeat 10 yrs- EGD [...] no ischemia. Ejection fraction was 60%.Electronically Signed:ARIADNA Duckworthecemborsetes 2016 8:54 [facility]:Diogenes Preciado MD 09/09/2017 8:54 AM SignedLIFESTYLE [...] programs in your area.Referring Provider: GAVIN HOPE [[id number]]Allergies As of Date: 09/09/2017 Noted Allergy ReactionCLONIDINE 07/21/2005CRESTOR (ROSUVASTATIN CALCIUM) 07/21/2005LIPITOR (ATORVASTATIN CALCIUM) 07/21/2005LISINOPRIL 02/10/2017 2 - RashSTATINS (JENXDYB-YWG-SXF REDUCTAS*07/15/2006Date Reviewed: 09/09/2017Reviewed by: Benita Garay - [...] Take 1 tablet by mouth once d* PFUOJ-3-GCM-KVF-E4-L57-FA- B6-* Take 1,000 Units by mouth twi* [...] the following areas and commit to making fdc changes. EAT A WHOLE FOOD, PLANT BASED [...] your area.Follow-up and Disposition History RecordedEncounter Number: [id number] Status:Closed by MOODY MONTES MD on 09/10/17 [facility] PROGRESSon 09-09-2017 PROGRESS HNO ID: [id number] thor: Moody Yuan: (none)Author Type: PhysicianType: Progress NotesFiled: 09/10/2017 6:07 PMNote Text:PERTINENT CARDIAC HISTORYHTNHL - statin intolerantCHF - diastolicVPDsCRFRSV infectionAllergy to lisinopril - rashADHERENCE TO GUIDELINESACE-I or ARB for HF with prior LVEF<40 (NQF 0081) - N/AASA or Plavix for ASHD (NQF 0067) - N/ABeta adrienne for ASHD with prior UT or prior LVEF<40 (NQF 0070) - N/ABeta [...] with treatment plan.This note was generated using [employer] voice recognition system, and theremay be some [...] tab Take 1 tablet by mouth once daily.le-2-gdd-epa-D3-B12- FA-B-6-phy (ANIMI-3 WITH VITAMIN D) 500-1,[id number]-zzuv-mcg cap Take 1,000 Units by mouth twice daily.Fish,Saf,Flx,Brg Oils-O3,6,9#2 [phone] mg cap Take 6 capsules bymouth once daily.Flaxseed Oil 1,000 mg ORAL Cap Take by mouth.Ipratropium [place] (ATROVENT) 0.03 % nasal spray Use 2 [...] was 60%.Electronically Signed:Moody Montes MDDecemborestes 2016 8:54 [facility]:Gavin Hope MD [facility] OBSOLETEon 07-22-2017 OBSOLETE Refill (AGCARDWST) LEANA CAMEJO ([id number]) 1940 MDate Time Provider Eeljpvztcy35/2/17 MOODY MONTES During your visit today, we [...] (ATORVASTATIN CALCIUM) 07/21/2005LISINOPRIL 02/10/2017 2 - RashSTATINS ([id number] REDUCTAS*07/15/2006Date Reviewed: 06/03/2017Reviewed by: Benita Garay - [...] Take 1 tablet by mouth once d* [id number]-C09-FA- B6-* Take 1,000 Units by mouth twi* [...] Status:Closed by FRANK ARELLANO on 07/22/17 Normal [facility] Vital Signs Date Time Vital Sign Value Performing Clinician Facility 06-05-2025 08:28-0400 Body height 172.[address] Dallas Reed MD Work Phone: [facility] 06-05-2025 08:28-0400 Body mass index (BMI) [Ratio] 21.1 kg/m2 Dr. Dallas Reed MD Work Phone: [facility] 06-05-2025 08:28-0400 Body weight 63.[address] Dallas Reed MD Work Phone: [facility] 06-05-2025 08:28-0400 Diastolic blood pressure 63 mm[Hg] Dr. Dallas Reed MD Work Phone: [phone] [place] [address] 06-05-2025 08:28-0400 Heart rate 71 /min Dr. Dallas Reed MD Work Phone: [phone] [place] [address] 06-05-2025 08:28-0400 Respiratory rate 16 /min Dr. Dallas Reed MD Work Phone: [facility] 06-05-2025 08:28-0400 Systolic blood pressure 123 mm[Hg] Dr. Dallas Reed MD Work Phone: [facility] 05-24-2025 14:39-0400 Diastolic blood pressure 48 mm[Hg] Dallas Reed MD Work Phone: [facility] 05-24-2025 14:39-0400 Heart rate 65 /min Dallas Reed MD Work Phone: [facility] 05-24-2025 14:39-0400 Systolic blood pressure 83 mm[Hg] Dallas Reed MD Work Phone: [facility] 05-24-2025 14:26-0400 Body mass index (BMI) [Ratio] 21.32 kg/m2 Dallas Reed MD Work Phone: [facility] 05-24-2025 14:26-0400 Body weight 63.6 kg Dallas Reed MD Work Phone: [facility] 05-22-2025 17:18-0400 Body temperature 98.1 [degF] Dr. Dallas Reed MD Work Phone: 2(272)827-245271 [place] [address] 05-22-2025 17:18-0400 Diastolic blood pressure 63 mm[Hg] Dr. Dallas Reed MD Work Phone: 5(795)674-637771 [place] [address] 05-22-2025 17:18-0400 Heart rate 91 /min Dr. Dallas Reed MD Work Phone: 0(113)430-210471 [place] [address] 05-22-2025 17:18-0400 Respiratory rate 17 /min Dr. Dallas Reed MD Work Phone: 2(525)828-876471 [place] [address] 05-22-2025 17:18-0400 SaO2% (BldA) [Mass fraction] 98 % Dr. Dallas Reed MD Work Phone: 9(777)341-375471 [place] [address] 05-22-2025 17:18-0400 Systolic blood pressure 106 mm[Hg] Dr. Dallas Reed MD Work Phone: 7(996)534-955871 [place] [address] 05-22-2025 11:31-0400 Body height 172.[address] Dallas Reed MD Work Phone: 6(489)684-107771 [place] [address] 05-22-2025 11:31-0400 Body weight 61.[address] Dallas Reed MD Work Phone: 1(593)916-483471 [place] [address] 05-22-2025 06:00-0400 Body mass index (BMI) [Ratio] 20.7 kg/m2 Dr. Dallas Reed MD Work Phone: 1(830)616-479471 [place] [address] 05-21-2025 04:00-0400 Diastolic blood pressure 81 mm[Hg] Dr. Dallas Reed MD Work Phone: 4(483)406-784171 [place] [address] 05-21-2025 04:00-0400 Heart rate 82 /min Dr. Dallas Reed MD Work Phone: 9(954)808-490671 [place] [address] 05-21-2025 04:00-0400 Respiratory rate 18 /min Dr. Dallas Reed MD Work Phone: 7(076)388-152371 [place] [address] 05-21-2025 04:00-0400 SaO2% (BldA) [Mass fraction] 92 % Dr. Dallas Reed MD Work Phone: 8(740)369-802912 [place] [address] 05-21-2025 04:00-0400 Systolic blood pressure 128 mm[Hg] Dr. Dallas Reed MD Work Phone: 6(550)332-689371 [place] [address] 05-21-2025 03:38-0400 Body temperature 98 [degF] Dr. Dallas Reed MD Work Phone: 7(433)634-988871 [place] [address] 05-21-2025 01:21-0400 Body height 172.[address] Dallas Reed MD Work Phone: 1(969)684-633771 [place] [address] 05-21-2025 01:21-0400 Body mass index (BMI) [Ratio] 21.4 kg/m2 Dr. Dallas Reed MD Work Phone: 8(586)988-267471 [place] [address] 05-21-2025 01:21-0400 Body weight 63.[address] Dallas Reed MD Work Phone: 7(456)238-496671 [place] [address] 05-18-2025 09:41-0400 Body mass index (BMI) [Ratio] 21.08 kg/m2 Darya Saira [employer] OPERATOR Work Phone: [facility] 05-18-2025 09:41-0400 Body weight 62.9 kg Darya Saira [employer] OPERATOR Work Phone: [facility] 05-18-2025 09:41-0400 Diastolic blood pressure 70 mm[Hg] Darya Saira [employer] OPERATOR Work Phone: [facility] 05-18-2025 09:41-0400 Heart rate 56 /min Darya Saira [employer] OPERATOR Work Phone: [facility] 05-18-2025 09:41-0400 Respiratory rate 14 /min Darya RosalesSaira [employer] OPERATOR Work Phone: [facility] 05-18-2025 09:41-0400 SaO2% (BldA) [Mass fraction] 94 % Darya Borden [employer] OPERATOR Work Phone: [facility] 05-18-2025 09:41-0400 Systolic blood pressure 112 mm[Hg] Darya Borden [employer] OPERATOR Work Phone: [facility] 05-10-2025 08:07-0400 Body height 172.[address] Dallas Reed MD Work Phone: [facility] 05-10-2025 08:07-0400 Body mass index (BMI) [Ratio] 21.6 kg/m2 Dr. Dallas Reed MD Work Phone: 3(542)958-064069 [address] 05-10-2025 08:07-0400 Body weight 64.[address] Dallas Reed MD Work Phone: 2(371)137-134569 [address] 05-10-2025 08:07-0400 Diastolic blood pressure 55 mm[Hg] Dr. Dallas Reed MD Work Phone: 7(889)590-264412 [place] [address] 05-10-2025 08:07-0400 Heart rate 66 /min Dr. Dallas Reed MD Work Phone: 6(872)928-708069 [address] 05-10-2025 08:07-0400 Respiratory rate 18 /min Dr. Dallas Reed MD Work Phone: 5(232)020-709712 [place] [address] 05-10-2025 08:07-0400 SaO2% (BldA) [Mass fraction] 98 % Dr. Dallas Reed MD Work Phone: 4(613)327-390612 [place] [address] 05-10-2025 08:07-0400 Systolic blood pressure 95 mm[Hg] Dr. Dallas Reed MD Work Phone: [facility] 04-18-2025 16:27-0400 Body temperature 98.2 [degF] Dr. Dallas Reed MD Work Phone: 8(564)322-178512 [place] [address] 04-18-2025 16:27-0400 Body weight 65.[address] Dallas Reed MD Work Phone: [facility] 04-18-2025 16:27-0400 Diastolic blood pressure 79 mm[Hg] Dr. Dallas Reed MD Work Phone: [facility] 04-18-2025 16:27-0400 Heart rate 74 /min Dr. Dallas Reed MD Work Phone: [facility] 04-18-2025 16:27-0400 Respiratory rate 16 /min Dr. Dallas Reed MD Work Phone: [facility] 04-18-2025 16:27-0400 SaO2% (BldA) [Mass fraction] 97 % Dr. Dallas Reed MD Work Phone: [facility] 04-18-2025 16:27-0400 Systolic blood pressure 158 mm[Hg] Dr. Dallas Reed MD Work Phone: [facility] 03-16-2025 19:15-0400 Diastolic blood pressure 69 mm[Hg] Ana Bobo MD Work Phone: [facility] [employer] Comment on above: per patient SBP in 120s is normal for [facility] 03-16-2025 19:15-0400 Heart rate 71 /min Ana Bobo MD Work Phone: [facility] [employer] 03-16-2025 19:15-0400 Respiratory rate 16 /min Ana Bobo MD Work Phone: [facility] [employer] 03-16-2025 19:15-0400 SaO2% (BldA) [Mass fraction] 94 % Ana Bobo MD Work Phone: [facility] 03-16-2025 19:15-0400 Systolic blood pressure 124 mm[Hg] Ana Bobo MD Work Phone: [facility] [employer] Comment on above: per patient SBP in 120s is normal for [facility] 03-16-2025 17:07-0400 Body temperature 97.3 [degF] Ana Bobo MD Work Phone: [facility] 03-16-2025 10:04-0400 Body height 172.7 cm Ana Bobo MD Work Phone: [facility] 03-16-2025 10:04-0400 Body mass index (BMI) [Ratio] 22.66 kg/m2 Ana Bobo MD Work Phone: [facility] 03-16-2025 10:04-0400 Body weight 67.59 kg Ana Bobo MD Work Phone: [facility] 03-12-2025 08:39-0400 Body mass index (BMI) [Ratio] 21.69 kg/m2 Darya Saira [employer] OPERATOR Work Phone: [facility] 03-12-2025 08:39-0400 Body weight 64.7 kg Darya Saira [employer] OPERATOR Work Phone: [facility] 03-12-2025 08:39-0400 Diastolic blood pressure 68 mm[Hg] Darya Saira [employer] OPERATOR Work Phone: [facility] 03-12-2025 08:39-0400 Heart rate 70 /min Darya Saira [employer] OPERATOR Work Phone: [facility] 03-12-2025 08:39-0400 Respiratory rate 14 /min Darya Saira [employer] OPERATOR Work Phone: [facility] 03-12-2025 08:39-0400 SaO2% (BldA) [Mass fraction] 98 % Darya Saira [employer] OPERATOR Work Phone: [facility] 03-12-2025 08:39-0400 Systolic blood pressure 112 mm[Hg] Darya Saira [employer] OPERATOR Work Phone: [facility] 02-27-2025 14:48-0400 Body temperature 97.5 [degF] Dr. Dallas Reed MD Work Phone: [facility] 02-27-2025 14:48-0400 Body weight 64.[address] Dallas Reed MD Work Phone: [facility] 02-27-2025 14:48-0400 Diastolic blood pressure 72 mm[Hg] Dr. Dallas Reed MD Work Phone: 1(770)915-203571 [place] [address] 02-27-2025 14:48-0400 Heart rate 60 /min Dr. Dallas Reed MD Work Phone: 3(896)441-976271 [place] [address] 02-27-2025 14:48-0400 Respiratory rate 16 /min Dr. Dallas Reed MD Work Phone: 5(740)978-531871 [place] [address] 02-27-2025 14:48-0400 SaO2% (BldA) [Mass fraction] 100 % Dr. Dallas Reed MD Work Phone: 5(218)009-025771 [place] [address] 02-27-2025 14:48-0400 Systolic blood pressure 123 mm[Hg] Dr. Dallas Reed MD Work Phone: 6(463)811-418371 [place] [address] 02-14-2025 20:53-0400 Body temperature 97.7 [degF] Dr. Dallas Reed MD Work Phone: 2(799)582-860571 [place] [address] 02-14-2025 20:53-0400 Diastolic blood pressure 76 mm[Hg] Dr. Dallas Reed MD Work Phone: 4(536)073-324571 [place] [address] 02-14-2025 20:53-0400 Heart rate 73 /min Dr. Dallas Reed MD Work Phone: 9(615)602-672371 [place] [address] 02-14-2025 20:53-0400 Respiratory rate 17 /min Dr. Dallas Reed MD Work Phone: 3(635)194-258571 [place] [address] 02-14-2025 20:53-0400 SaO2% (BldA) [Mass fraction] 94 % Dr. Dallas Reed MD Work Phone: 8(688)759-302171 [place] [address] 02-14-2025 20:53-0400 Systolic blood pressure 143 mm[Hg] Dr. Dallas Reed MD Work Phone: 8(748)348-384571 [place] [address] 02-14-2025 09:53-0400 Body height 172.[address] Dallsa Reed MD Work Phone: 1(555)476-995271 [place] [address] 02-14-2025 09:53-0400 Body weight 67.[address] Dallas Reed MD Work Phone: 6(316)982-446971 [place] [address] 02-13-2025 07:14-0400 Body mass index (BMI) [Ratio] 22.5 kg/m2 Dr. Dallas Reed MD Work Phone: 2(856)935-947971 [place] [address] 01-12-2025 13:36-0400 Body temperature 97.4 [degF] Dr. Dallas Reed MD Work Phone: 8(356)343-011571 [place] [address] 01-12-2025 13:36-0400 Diastolic blood pressure 78 mm[Hg] Dr. Dallas Reed MD Work Phone: 4(241)533-685071 [place] [address] 01-12-2025 13:36-0400 Heart rate 61 /min Dr. Dallas Reed MD Work Phone: 0(857)771-568371 [place] [address] 01-12-2025 13:36-0400 Respiratory rate 16 /min Dr. Dallas Reed MD Work Phone: 0(395)105-890371 [place] [address] 01-12-2025 13:36-0400 SaO2% (BldA) [Mass fraction] 96 % Dr. Dallas Reed MD Work Phone: 1(286)220-289171 [place] [address] 01-12-2025 13:36-0400 Systolic blood pressure 142 mm[Hg] Dr. Dallas Reed MD Work Phone: 4(484)213-734612 [place] [address] 01-12-2025 10:30-0400 Body height 172.[address] Dallas Reed MD Work Phone: 8(423)067-007971 [place] [address] 01-12-2025 10:30-0400 Body mass index (BMI) [Ratio] 22.4 kg/m2 Dr. Dallas Reed MD Work Phone: 0(726)769-152471 [place] [address] 01-12-2025 10:30-0400 Body weight 67.[address] Dallas Reed MD Work Phone: 2(400)041-697171 [place] [address] 12-25-2024 15:58-0400 Body temperature 98 [degF] Dr. Dallas Reed MD Work Phone: [facility] 12-25-2024 15:58-0400 Body weight 67.[address] Dallas Reed MD Work Phone: [facility] 12-25-2024 15:58-0400 Diastolic blood pressure 83 mm[Hg] Dr. Dallas Reed MD Work Phone: [facility] 12-25-2024 15:58-0400 Heart rate 68 /min Dr. Dallas Reed MD Work Phone: 9(506)250-887912 [place] [address] 12-25-2024 15:58-0400 Respiratory rate 16 /min Dr. Dallas Reed MD Work Phone: [facility] 12-25-2024 15:58-0400 SaO2% (BldA) [Mass fraction] 97 % Dr. Dallas Reed MD Work Phone: 3(931)714-149712 [place] [address] 12-25-2024 15:58-0400 Systolic blood pressure 160 mm[Hg] Dr. Dallas Reed MD Work Phone: [facility] 12-19-2024 09:00-0400 Diastolic blood pressure 65 mm[Hg] Ramon Lee PT Work Phone: [facility] Comment on above: Before [employer] 12-19-2024 09:00-0400 Heart rate 67 /min Ramon Lee PT Work Phone: [facility] Comment on above: Before [employer]. 12-19-2024 09:00-0400 Systolic blood pressure 138 mm[Hg] Ramon Lee PT Work Phone: [facility] Comment on above: Before [employer] 12-15-2024 09:00-0400 Diastolic blood pressure 67 mm[Hg] Ramon Lee PT Work Phone: [facility] Comment on above: Before [employer] 12-15-2024 09:00-0400 Heart rate 71 /min Ramon Lee PT Work Phone: [facility] Comment on above: Before [employer] 12-15-2024 09:00-0400 Systolic blood pressure 124 mm[Hg] Ramon Lee PT Work Phone: [facility] Comment on above: Before [employer] 12-12-2024 09:00-0400 Diastolic blood pressure 85 mm[Hg] Ramon Lee PT Work Phone: [facility] Comment on above: BP before [employer] 12-12-2024 09:00-0400 Heart rate 73 /min Ramon Lee PT Work Phone: [facility] 12-12-2024 09:00-0400 Systolic blood pressure 150 mm[Hg] Ramon Lee PT Work Phone: [facility] Comment on above: BP before [employer] 12-08-2024 11:25-0400 Body height 172.7 cm Dallas Reed MD Work Phone: [facility] 12-08-2024 11:25-0400 Body mass index (BMI) [Ratio] 22.46 kg/m2 Dallas Reed MD Work Phone: [facility] 12-08-2024 11:25-0400 Body temperature 97.9 [degF] Dallas Reed MD Work Phone: [facility] 12-08-2024 11:25-0400 Body weight 67 kg Dallas Reed MD Work Phone: [facility] 12-08-2024 11:25-0400 Diastolic blood pressure 60 mm[Hg] Dallas Reed MD Work Phone: [facility] 12-08-2024 11:25-0400 Heart rate 71 /min Dallas Reed MD Work Phone: [facility] 12-08-2024 11:25-0400 Respiratory rate 12 /min Dallas Reed MD Work Phone: [facility] 12-08-2024 11:25-0400 SaO2% (BldA) [Mass fraction] 97 % Dallas Reed MD Work Phone: [facility] 12-08-2024 11:25-0400 Systolic blood pressure 110 mm[Hg] Ramontrudy RiceYvonne PT Work Phone: [facility] Comment on above: Prior to [employer] 12-08-2024 09:00-0400 Diastolic blood pressure 62 mm[Hg] Ramontrudy RiceYvonne PT Work Phone: [facility] Comment on above: Prior to [employer] 12-08-2024 09:00-0400 Heart rate 66 /min Ramon Yvonne PT Work Phone: [facility] Comment on above: Prior to [employer] 12-06-2024 09:00-0400 Diastolic blood pressure 77 mm[Hg] Ramon Yvonne PT Work Phone: [facility] Comment on above: Prior to [employer] 12-06-2024 09:00-0400 Heart rate 60 /min Ramontrudy Lee PT Work Phone: [facility] 12-06-2024 09:00-0400 Systolic blood pressure 148 mm[Hg] Ramontrudy RiceYvonne PT Work Phone: [facility] Comment on above: Prior to [employer] 11-28-2024 20:00-0400 Diastolic blood pressure 79 mm[Hg] Dr. Dallas Reed MD Work Phone: [facility] 11-28-2024 20:00-0400 Heart rate 76 /min Dr. Dallas Reed MD Work Phone: [facility] 11-28-2024 20:00-0400 Respiratory rate 18 /min Dr. Dallas Reed MD Work Phone: [facility] 11-28-2024 20:00-0400 SaO2% (BldA) [Mass fraction] 93 % Dr. Dallas Reed MD Work Phone: [facility] 11-28-2024 20:00-0400 Systolic blood pressure 143 mm[Hg] Dr. Dallas Reed MD Work Phone: [facility] 11-28-2024 19:31-0400 Body temperature 98.3 [degF] Dr. Dallas Reed MD Work Phone: [facility] 11-28-2024 17:53-0400 Body height 172.[address] Dallas Reed MD Work Phone: [facility] 11-28-2024 17:53-0400 Body mass index (BMI) [Ratio] 23 kg/m2 Dr. Dallas Reed MD Work Phone: [facility] 11-28-2024 17:53-0400 Body weight 68.[address] Dallas Reed MD Work Phone: [facility] 11-27-2024 10:51-0400 Body mass index (BMI) [Ratio] 22.59 kg/m2 Darya Borden APRN.[employer] OPERATOR Work Phone: [facility] 11-27-2024 10:51-0400 Body temperature 97.7 [degF] Darya Borden [employer] OPERATOR Work Phone: [facility] 11-27-2024 10:51-0400 Body weight 67.6 kg Darya Borden [employer] OPERATOR Work Phone: [facility] 11-27-2024 10:51-0400 Diastolic blood pressure 70 mm[Hg] Darya Borden [employer] M[employer] OPERATOR Work Phone: [facility] 11-27-2024 10:51-0400 Heart rate 70 /min Darya Borden [employer] M[employer] OPERATOR Work Phone: [facility] 11-27-2024 10:51-0400 Respiratory rate 14 /min Darya Borden [employer] M[employer] OPERATOR Work Phone: [facility] 11-27-2024 10:51-0400 SaO2% (BldA) [Mass fraction] 98 % Darya Borden [employer] M[employer] OPERATOR Work Phone: [facility] 11-27-2024 10:51-0400 Systolic blood pressure 122 mm[Hg] Darya Saira [employer] OPERATOR Work Phone: [facility] 11-24-2024 07:00-0500 Diastolic blood pressure 74 mm[Hg] Ramon Lee PT Work Phone: [facility] 11-24-2024 07:00-0500 Heart rate 90 /min Ramon Lee PT Work Phone: [facility] 11-24-2024 07:00-0500 Systolic blood pressure 144 mm[Hg] Ramon Lee PT Work Phone: [facility] 11-09-2024 14:09-0500 Diastolic blood pressure 63 mm[Hg] Dallas Reed MD Work Phone: [facility] 11-09-2024 14:09-0500 Heart rate 66 /min Dallas Reed MD Work Phone: [facility] 11-09-2024 14:09-0500 Systolic blood pressure 120 mm[Hg] Dallas Reed MD Work Phone: [facility] 11-09-2024 14:00-0500 Body mass index (BMI) [Ratio] 23.02 kg/m2 Dallas Reed MD Work Phone: [facility] 11-09-2024 14:00-0500 Body temperature 98.71 [degF] Dallas Reed MD Work Phone: [facility] 11-09-2024 14:00-0500 Body weight 68.9 kg Dallas Reed MD Work Phone: [facility] 11-07-2024 11:00-0500 Body mass index (BMI) [Ratio] 23.05 kg/m2 Elbert Hawk APRN.[employer] OPERATOR Work Phone: [facility] 11-07-2024 11:00-0500 Body temperature 97.81 [degF] Elbert Hawk APRN.[employer] M[employer] OPERATOR Work Phone: [facility] 11-07-2024 11:00-0500 Body weight 69 kg Elbert Kenn [employer] OPERATOR Work Phone: [facility] 11-07-2024 11:00-0500 Diastolic blood pressure 81 mm[Hg] Elbert Hawk [employer] M[employer] OPERATOR Work Phone: [facility] 11-07-2024 11:00-0500 Heart rate 57 /min Elbert Hawk [employer] M[employer] OPERATOR Work Phone: [facility] 11-07-2024 11:00-0500 Respiratory rate 18 /min Elbert Hawk [employer] M[employer] OPERATOR Work Phone: [facility] 11-07-2024 11:00-0500 SaO2% (BldA) [Mass fraction] 100 % Elbert Hawk [employer] M[employer] OPERATOR Work Phone: [facility] 11-07-2024 11:00-0500 Systolic blood pressure 150 mm[Hg] Elbert Hawk [employer] M[employer] OPERATOR Work Phone: [facility] 09-07-2024 09:53-0500 Body height 173 cm Darya Borden [employer] OPERATOR Work Phone: [facility] 09-07-2024 09:53-0500 Body mass index (BMI) [Ratio] 23.19 kg/m2 Darya RichardsonSaira [employer] OPERATOR Work Phone: [facility] 09-07-2024 09:53-0500 Body weight 69.4 kg Darya Borden [employer] M[employer] OPERATOR Work Phone: [facility] 09-07-2024 09:53-0500 Diastolic blood pressure 84 mm[Hg] Darya RichardsonSaira [employer] OPERATOR Work Phone: [facility] 09-07-2024 09:53-0500 Heart rate 68 /min Darya RichardsonSaira [employer] M[employer] OPERATOR Work Phone: [facility] 09-07-2024 09:53-0500 Respiratory rate 14 /min Darya Borden [employer] M[employer] OPERATOR Work Phone: [facility] 09-07-2024 09:53-0500 SaO2% (BldA) [Mass fraction] 98 % Darya Borden [employer] M[employer] OPERATOR Work Phone: [facility] 09-07-2024 09:53-0500 Systolic blood pressure 122 mm[Hg] Darya Borden L[employer] M[employer] OPERATOR Work Phone: [facility] 08-31-2024 16:16-0500 Body temperature 98.4 [degF] Dr. Dallas Reed MD Work Phone: [facility] 08-31-2024 16:16-0500 Diastolic blood pressure 90 mm[Hg] Dr. Dallas Reed MD Work Phone: 4(168)206-426312 [place] [address] 08-31-2024 16:16-0500 Heart rate 70 /min Dr. Dallas Reed MD Work Phone: 5(041)130-929712 [place] [address] 08-31-2024 16:16-0500 Respiratory rate 16 /min Dr. Dallas Reed MD Work Phone: [facility] 08-31-2024 16:16-0500 SaO2% (BldA) [Mass fraction] 97 % Dr. Dallas Reed MD Work Phone: [facility] 08-31-2024 16:16-0500 Systolic blood pressure 175 mm[Hg] Dr. Dallas Reed MD Work Phone: [facility] 08-31-2024 06:39-0500 Body mass index (BMI) [Ratio] 23.1 kg/m2 Dr. Dallas Reed MD Work Phone: [facility] 08-31-2024 06:39-0500 Body weight 69.[address] Dallas Reed MD Work Phone: [facility] 07-17-2024 12:41-0400 Body mass index (BMI) [Ratio] 23.87 kg/m2 Dallas Reed MD Work Phone: [facility] 07-17-2024 12:41-0400 Body temperature 98.1 [degF] Dallas Reed MD Work Phone: [facility] 07-17-2024 12:41-0400 Body weight 71.2 kg Dallas Reed MD Work Phone: [facility] 07-17-2024 12:41-0400 Diastolic blood pressure 62 mm[Hg] Dallas Reed MD Work Phone: [facility] 07-17-2024 12:41-0400 Heart rate 64 /min Dallas Reed MD Work Phone: [facility] 07-17-2024 12:41-0400 Respiratory rate 12 /min Dallas Reed MD Work Phone: [facility] 07-17-2024 12:41-0400 Systolic blood pressure 110 mm[Hg] Dallas Reed MD Work Phone: [facility] 06-07-2024 09:00-0400 Diastolic blood pressure 62 mm[Hg] Dallas Reed MD Work Phone: [facility] 06-07-2024 09:00-0400 Systolic blood pressure 124 mm[Hg] Dallas Reed MD Work Phone: [facility] 06-07-2024 08:29-0400 Body mass index (BMI) [Ratio] 24.17 kg/m2 Dallas Reed MD Work Phone: [facility] 06-07-2024 08:29-0400 Body temperature 98.49 [degF] Dallas Reed MD Work Phone: [facility] 06-07-2024 08:29-0400 Body weight 72.1 kg Dallas Reed MD Work Phone: [facility] 06-07-2024 08:29-0400 Heart rate 64 /min Dallas Reed MD Work Phone: [facility] 06-07-2024 08:29-0400 Respiratory rate 12 /min Dallas Reed MD Work Phone: [facility] 05-23-2024 15:20-0400 Diastolic blood pressure 90 mm[Hg] Aubrie Bogner PA-C Work Phone: [facility] Comment on above: fab bp average 05-23-2024 15:20-0400 Systolic blood pressure 190 mm[Hg] Aubrie Bogner PA-C Work Phone: [facility] Comment on above: fab bp average 05-23-2024 14:01-0400 Body height 172.7 cm Aubrie Bogner PA-C Work Phone: [facility] 05-23-2024 14:01-0400 Body mass index (BMI) [Ratio] 23.72 kg/m2 Aubrie Bogner PA-C Work Phone: [facility] 05-23-2024 14:01-0400 Body weight 70.76 kg Aubrie Bogner PA-C Work Phone: [facility] 05-23-2024 14:01-0400 Heart rate 68 /min Aubrie Bogner PA-C Work Phone: [facility] 05-23-2024 14:01-0400 Respiratory rate 12 /min Aubrie Bogner PA-C Work Phone: [facility] 05-23-2024 14:01-0400 SaO2% (BldA) [Mass fraction] 98 % Aubrie Bogner PA-C Work Phone: [facility] 03-11-2024 11:13-0400 Body mass index (BMI) [Ratio] 25.01 kg/m2 Prema Denver [employer] OPERATOR Work Phone: [facility] 03-11-2024 11:13-0400 Body temperature 97 [degF] Prema Cyndie [employer] M[employer] OPERATOR Work Phone: [facility] 03-11-2024 11:13-0400 Body weight 74.6 kg Prema Denver [employer] M[employer] OPERATOR Work Phone: [facility] 03-11-2024 11:13-0400 Diastolic blood pressure 78 mm[Hg] Prema Cyndie L[employer] M[employer] OPERATOR Work Phone: [facility] 03-11-2024 11:13-0400 Heart rate 67 /min Prema Cyndie L[employer] M[employer] OPERATOR Work Phone: [facility] 03-11-2024 11:13-0400 Respiratory rate 18 /min Prema Denver [employer] M[employer] OPERATOR Work Phone: [facility] 03-11-2024 11:13-0400 SaO2% (BldA) [Mass fraction] 97 % Prema Denver [employer]ATER.ROLLS MILL OPERATOR Work Phone: [facility] 03-11-2024 11:13-0400 Systolic blood pressure 152 mm[Hg] Prema Cyndie [employer].ROLLS MILL OPERATOR Work Phone: [facility] 02-09-2024 16:15-0400 Body mass index (BMI) [Ratio] 25.41 kg/m2 Ayla Athy PA-C Work Phone: [facility] 02-09-2024 16:15-0400 Body temperature 97.7 [degF] Ayla Athy PA-C Work Phone: [facility] 02-09-2024 16:15-0400 Body weight 75.8 kg Ayla Athy PA-C Work Phone: [facility] 02-09-2024 16:15-0400 Diastolic blood pressure 80 mm[Hg] Ayla Athy PA-C Work Phone: [facility] 02-09-2024 16:15-0400 Heart rate 58 /min Ayla Athy PA-C Work Phone: [facility] 02-09-2024 16:15-0400 Respiratory rate 16 /min Ayla Athy PA-C Work Phone: [facility] 02-09-2024 16:15-0400 SaO2% (BldA) [Mass fraction] 95 % Ayla Athy PA-C Work Phone: [facility] 02-09-2024 16:15-0400 Systolic blood pressure 124 mm[Hg] Ayla Carrasquillo PA-C Work Phone: [facility] 01-17-2024 08:24-0400 Body height 172.7 cm Shaun Kowalski MD Work Phone: [facility] 01-17-2024 08:24-0400 Body mass index (BMI) [Ratio] 25.32 kg/m2 Shaun Kowalski MD Work Phone: [facility] 01-17-2024 08:24-0400 Body temperature 97.11 [degF] Shaun Kowalski MD Work Phone: [facility] 01-17-2024 08:24-0400 Body weight 75.52 kg Shaun Kowalski MD Work Phone: [facility] 01-17-2024 08:24-0400 Diastolic blood pressure 85 mm[Hg] Shaun Kowalski MD Work Phone: [facility] 01-17-2024 08:24-0400 Heart rate 63 /min Shaun Kowalski MD Work Phone: [facility] 01-17-2024 08:24-0400 Respiratory rate 18 /min Shaun Kowalski MD Work Phone: [facility] 01-17-2024 08:24-0400 SaO2% (BldA) [Mass fraction] 97 % Shaun Kowalski MD Work Phone: [facility] 01-17-2024 08:24-0400 Systolic blood pressure 141 mm[Hg] Shaun Kowalski MD Work Phone: [facility] 01-10-2024 08:57-0400 Body mass index (BMI) [Ratio] 25.09 kg/m2 Darya Borden APRN.CNP Work Phone: [facility] 01-10-2024 08:57-0400 Body weight 74.84 kg Darya Borden APRN.CNP Work Phone: [facility] 01-10-2024 08:57-0400 Diastolic blood pressure 72 mm[Hg] Darya Saira [employer].ROLLS MILL OPERATOR Work Phone: [facility] 01-10-2024 08:57-0400 Heart rate 61 /min Darya Saira [employer].ROLLS MILL OPERATOR Work Phone: [facility] 01-10-2024 08:57-0400 Respiratory rate 18 /min Darya Saira [employer]ATER.ROLLS MILL OPERATOR Work Phone: [facility] 01-10-2024 08:57-0400 Systolic blood pressure 112 mm[Hg] Darya Saira [employer].ROLLS MILL OPERATOR Work Phone: [facility] 12-27-2023 08:40-0400 Diastolic blood pressure 74 mm[Hg] [facility] 12-27-2023 08:40-0400 Heart rate 67 /min [facility] 12-27-2023 08:40-0400 Respiratory rate 16 /min [facility] 12-27-2023 08:40-0400 SaO2% (BldA) [Mass fraction] 97 % [facility] 12-27-2023 08:40-0400 Systolic blood pressure 159 mm[Hg] [facility] 12-27-2023 07:28-0400 Body height 172.72 cm [facility] 12-27-2023 07:28-0400 Body mass index (BMI) [Ratio] 25 kg/m2 [facility] 12-27-2023 07:28-0400 Body temperature 97.8 [degF] [facility] 12-27-2023 07:28-0400 Body weight 74.84 kg [facility] 08-10-2023 08:08-0500 Body height 172.7 cm Darya Older [employer].ROLLS MILL OPERATOR Work Phone: [facility] 08-10-2023 08:08-0500 Body weight 72.58 kg Darya Older [employer]ATER.ROLLS MILL OPERATOR Work Phone: [facility] 08-10-2023 08:08-0500 Diastolic blood pressure 74 mm[Hg] Darya Older [employer]AC[employer]ATER.ROLLS MILL OPERATOR Work Phone: [facility] 08-10-2023 08:08-0500 Heart rate 68 /min Darya Older [employer]AC[employer]ATER.ROLLS MILL OPERATOR Work Phone: [facility] 08-10-2023 08:08-0500 Respiratory rate 16 /min Darya Older [employer]AC[employer]ATER.ROLLS MILL OPERATOR Work Phone: [facility] 08-10-2023 08:08-0500 SaO2% (BldA) [Mass fraction] 98 % Darya Older [employer]ATER.ROLLS MILL OPERATOR Work Phone: [facility] 08-10-2023 08:08-0500 Systolic blood pressure 122 mm[Hg] Darya Older [employer]ATER.ROLLS MILL OPERATOR Work Phone: [facility] 06-25-2023 13:25-0400 Body height 172.[address] Dallas Reed Work Phone: 8(765)633-770571 [place] [address] 06-25-2023 13:25-0400 Body mass index (BMI) [Ratio] 24.9 kg/m2 Dr. Dallas Reed Work Phone: 7(603)288-343412 [place] [address] 06-25-2023 13:25-0400 Body temperature 97.1 [degF] Dr. Dallas Reed Work Phone: 3(273)155-650112 [place] [address] 06-25-2023 13:25-0400 Body weight 74.[address] Dallas Reed Work Phone: 6(648)223-505812 [place] [address] 06-25-2023 13:25-0400 Diastolic blood pressure 79 mm[Hg] Dr. Dallas Reed Work Phone: 0(052)664-806412 [place] [address] 06-25-2023 13:25-0400 Heart rate 61 /min Dr. Dallas Reed Work Phone: 5(466)557-661812 [place] [address] 06-25-2023 13:25-0400 Respiratory rate 16 /min Dr. Dallas Reed Work Phone: [facility] 06-25-2023 13:25-0400 SaO2% (BldA) [Mass fraction] 98 % Dr. Dallas Reed Work Phone: 1(287)769-701312 [place] [address] 06-25-2023 13:25-0400 Systolic blood pressure 202 mm[Hg] Dr. Dallas Reed Work Phone: 5(977)327-112371 [place] [address] 05-26-2023 14:15-0400 Body height 172.[address] Dallas Reed Work Phone: 1(815)813-523871 [place] [address] 05-26-2023 14:15-0400 Body mass index (BMI) [Ratio] 25.4 kg/m2 Dr. Dallas Reed Work Phone: 3(825)479-483971 [place] [address] 05-26-2023 14:15-0400 Body weight 75.[address] Dallas Reed Work Phone: 1(692)927-942671 [place] [address] 05-26-2023 14:15-0400 Diastolic blood pressure 79 mm[Hg] Dr. Dallas Reed Work Phone: 1(814)726-825571 [place] [address] 05-26-2023 14:15-0400 Heart rate 63 /min Dr. Dallas Reed Work Phone: 8(917)491-683671 [place] [address] 05-26-2023 14:15-0400 Respiratory rate 16 /min Dr. Dallas Reed Work Phone: 8(373)740-040771 [place] [address] 05-26-2023 14:15-0400 SaO2% (BldA) [Mass fraction] 97 % Dr. Dallas Reed Work Phone: 4(214)423-205871 [place] [address] 05-26-2023 14:15-0400 Systolic blood pressure 159 mm[Hg] Dr. Dallas Reed Work Phone: 8(194)854-517971 [place] [address] 04-19-2023 10:15-0400 Diastolic blood pressure 68 mm[Hg] Dr. Dallas Reed Work Phone: 3(866)477-990871 [place] [address] 04-19-2023 10:15-0400 Heart rate 64 /min Dr. Dallas Reed Work Phone: 5(932)777-931312 [place] [address] 04-19-2023 10:15-0400 Respiratory rate 17 /min Dr. Dallas Reed Work Phone: 0(695)013-263571 [place] [address] 04-19-2023 10:15-0400 SaO2% (BldA) [Mass fraction] 98 % Dr. Dallas Reed Work Phone: [facility] 04-19-2023 10:15-0400 Systolic blood pressure 169 mm[Hg] Dr. Dallas Reed Work Phone: [facility] 04-16-2023 10:16-0400 Body weight 74.39 kg Dallas Reed MD Work Phone: [facility] 04-16-2023 10:16-0400 Diastolic blood pressure 70 mm[Hg] Dallas Reed MD Work Phone: [facility] 04-16-2023 10:16-0400 Heart rate 60 /min Dallas Reed MD Work Phone: [facility] 04-16-2023 10:16-0400 Respiratory rate 16 /min Dallas Reed MD Work Phone: [facility] 04-16-2023 10:16-0400 Systolic blood pressure 146 mm[Hg] Dallas Reed MD Work Phone: [facility] 04-08-2023 17:09-0400 Body temperature 97.8 [degF] Dr. Dallas Reed Work Phone: [facility] 04-08-2023 17:09-0400 Diastolic blood pressure 66 mm[Hg] Dr. Dallas Reed Work Phone: [facility] 04-08-2023 17:09-0400 Heart rate 71 /min Dr. Dallas Reed Work Phone: [facility] 04-08-2023 17:09-0400 Respiratory rate 20 /min Dr. Dallas Reed Work Phone: [facility] 04-08-2023 17:09-0400 SaO2% (BldA) [Mass fraction] 99 % Dr. Dallas Reed Work Phone: [facility] 04-08-2023 17:09-0400 Systolic blood pressure 159 mm[Hg] Dr. Dallas Reed Work Phone: [facility] 04-08-2023 08:00-0400 Inhaled oxygen flow rate 2 L/min Dr. Dallas Reed Work Phone: [facility] 04-08-2023 01:32-0400 Body mass index (BMI) [Ratio] 25.2 kg/m2 Dr. Dallas Reed Work Phone: [facility] 04-08-2023 01:32-0400 Body weight 75.[address] Dallas Reed Work Phone: 6(316)665-206371 [place] [address] 04-07-2023 10:14-0400 Body height 172.[address] Dallas Reed Work Phone: 9(015)461-935271 [place] [address] 03-05-2023 07:49-0400 Diastolic blood pressure 75 mm[Hg] Dr. Dallas Reed Work Phone: [facility] 03-05-2023 07:49-0400 Systolic blood pressure 156 mm[Hg] Dr. Dallas Reed Work Phone: [facility] 03-04-2023 09:57-0400 Diastolic blood pressure 76 mm[Hg] Dallas Reed MD Work Phone: [facility] 03-04-2023 09:57-0400 Heart rate 62 /min Dallas Reed MD Work Phone: [facility] 03-04-2023 09:57-0400 Systolic blood pressure 160 mm[Hg] Dallas Reed MD Work Phone: [facility] 03-04-2023 09:48-0400 Body weight 73.48 kg Dallas Reed MD Work Phone: [facility] 03-04-2023 09:48-0400 Respiratory rate 12 /min Dallas Reed MD Work Phone: [facility] 02-25-2023 14:17-0400 Body mass index (BMI) [Ratio] 25 kg/m2 Dr. Dallas Reed Work Phone: [facility] 02-25-2023 14:17-0400 Body temperature 98.1 [degF] Dr. Dallas Reed Work Phone: [facility] 02-25-2023 14:17-0400 Body weight 74.[address] Dallas Reed Work Phone: 5(863)913-984212 [place] [address] 02-25-2023 14:17-0400 Diastolic blood pressure 65 mm[Hg] Dr. Dallas Reed Work Phone: 4(660)710-414971 [place] [address] 02-25-2023 14:17-0400 Heart rate 68 /min Dr. Dallas Reed Work Phone: 8(616)759-649871 [place] [address] 02-25-2023 14:17-0400 Respiratory rate 16 /min Dr. Dallas Reed Work Phone: 2(148)685-755312 [place] [address] 02-25-2023 14:17-0400 SaO2% (BldA) [Mass fraction] 98 % Dr. Dallas Reed Work Phone: 0(410)204-432571 [place] [address] 02-25-2023 14:17-0400 Systolic blood pressure 129 mm[Hg] Dr. Dallas Reed Work Phone: 6(251)564-267912 [place] [address] 02-23-2023 09:51-0400 Diastolic blood pressure 97 mm[Hg] Dr. Dallas Reed Work Phone: 0(141)329-977312 [place] [address] 02-23-2023 09:51-0400 Systolic blood pressure 199 mm[Hg] Dr. Dallas Reed Work Phone: 9(911)352-156912 [place] [address] 02-23-2023 09:36-0400 Body temperature 97.8 [degF] Dr. Dallas Reed Work Phone: 4(242)432-070312 [place] [address] 02-23-2023 09:36-0400 Heart rate 55 /min Dr. Dallas Reed Work Phone: 0(078)957-664312 [place] [address] 02-23-2023 09:36-0400 Respiratory rate 18 /min Dr. Dallas Reed Work Phone: [facility] 02-23-2023 09:36-0400 SaO2% (BldA) [Mass fraction] 99 % Dr. Dallas Reed Work Phone: [facility] 02-01-2023 10:45-0400 Body temperature 96.91 [degF] Aubrie Bogner PA-C Work Phone: [facility] 02-01-2023 10:45-0400 Body weight 73.48 kg Aubrie Bogner PA-C Work Phone: [facility] 02-01-2023 10:45-0400 Diastolic blood pressure 64 mm[Hg] Aubrie Bogner PA-C Work Phone: [facility] 02-01-2023 10:45-0400 Heart rate 64 /min Aubrie Bogner PA-C Work Phone: [facility] 02-01-2023 10:45-0400 Respiratory rate 16 /min Aubrie Bogner PA-C Work Phone: [facility] 02-01-2023 10:45-0400 SaO2% (BldA) [Mass fraction] 99 % Aubrie Bogner PA-C Work Phone: [facility] 02-01-2023 10:45-0400 Systolic blood pressure 108 mm[Hg] Aubrie Bogner PA-C Work Phone: [facility] 01-15-2023 11:59-0400 Diastolic blood pressure 72 mm[Hg] Lisa Rodriguez MD Work Phone: [facility] 01-15-2023 11:59-0400 Heart rate 67 /min iLsa Rodriguez MD Work Phone: [facility] 01-15-2023 11:59-0400 Respiratory rate 18 /min Lisa Rodriguez MD Work Phone: [facility] 01-15-2023 11:59-0400 SaO2% (BldA) [Mass fraction] 97 % Lisa Rodriguez MD Work Phone: [facility] 01-15-2023 11:59-0400 Systolic blood pressure 147 mm[Hg] Lisa Rodriguez MD Work Phone: [facility] 01-15-2023 11:43-0400 Body temperature 97.81 [degF] Lisa Rodriguez MD Work Phone: [facility] 01-15-2023 10:54-0400 Body height 172.7 cm Lisa Rodriguez MD Work Phone: [facility] 01-15-2023 10:54-0400 Body mass index (BMI) [Ratio] 24.33 kg/m2 Lisa Rodriguez MD Work Phone: [facility] 01-15-2023 10:54-0400 Body weight 72.58 kg Lisa Rodriguez MD Work Phone: [facility] 01-07-2023 16:10-0400 Body height 172.7 cm Lisa Rodriguez MD Work Phone: [facility] 01-07-2023 16:10-0400 Body weight 72.58 kg Lisa Rodriguez MD Work Phone: [facility] 01-07-2023 16:10-0400 Diastolic blood pressure 68 mm[Hg] Lisa Rodriguez MD Work Phone: [facility] 01-07-2023 16:10-0400 Heart rate 74 /min Lisa Rodriguez MD Work Phone: [facility] 01-07-2023 16:10-0400 Systolic blood pressure 114 mm[Hg] Lisa Rodriguez MD Work Phone: [facility] 12-30-2022 11:57-0400 Body temperature 97.39 [degF] Dallas Reed MD Work Phone: [facility] 12-30-2022 11:57-0400 Body weight 72.35 kg Dallas Reed MD Work Phone: [facility] 12-30-2022 11:57-0400 Diastolic blood pressure 80 mm[Hg] Dallas Reed MD Work Phone: [facility] 12-30-2022 11:57-0400 Heart rate 64 /min Dallas Reed MD Work Phone: [facility] 12-30-2022 11:57-0400 Respiratory rate 16 /min Dallas Reed MD Work Phone: [facility] 12-30-2022 11:57-0400 Systolic blood pressure 132 mm[Hg] Dallas Reed MD Work Phone: [facility] 07-03-2022 16:55-0400 Body temperature 97.39 [degF] Gavin Rivero [employer].ROLLS MILL OPERATOR Work Phone: [facility] 07-03-2022 16:55-0400 Body weight 76.11 kg Gavin Rivero [employer]ATER.ROLLS MILL OPERATOR Work Phone: [facility] 07-03-2022 16:55-0400 Diastolic blood pressure 78 mm[Hg] Gavin Rivero LACQUER COATER.ROLLS MILL OPERATOR Work Phone: [facility] 07-03-2022 16:55-0400 Heart rate 69 /min Gavin Rivero [employer]AC[employer] COATER.ROLLS MILL OPERATOR Work Phone: [facility] 07-03-2022 16:55-0400 Respiratory rate 18 /min Gavin Rivero [employer]AC[employer] COATER.ROLLS MILL OPERATOR Work Phone: [facility] 07-03-2022 16:55-0400 SaO2% (BldA) [Mass fraction] 98 % Gavin Rivero [employer] COATER.ROLLS MILL OPERATOR Work Phone: [facility] 07-03-2022 16:55-0400 Systolic blood pressure 122 mm[Hg] Gavin Rivero [employer]ACQUER COATER.ROLLS MILL OPERATOR Work Phone: [facility] 02-17-2022 11:32-0400 Body temperature 99.39 [degF] Nona Haider [employer] COATER.ROLLS MILL OPERATOR Work Phone: [facility] 02-17-2022 11:32-0400 Body weight 77.2 kg Nona Maloney APRN.ROLLS MILL OPERATOR Work Phone: [facility] 02-17-2022 11:32-0400 Diastolic blood pressure 68 mm[Hg] Nona Maloney APRN.ROLLS MILL OPERATOR Work Phone: [facility] 02-17-2022 11:32-0400 Heart rate 82 /min Nona Maloney APRN.ROLLS MILL OPERATOR Work Phone: [facility] 02-17-2022 11:32-0400 Respiratory rate 20 /min Nona Maloney APRN.ROLLS MILL OPERATOR Work Phone: [facility] 02-17-2022 11:32-0400 SaO2% (BldA) [Mass fraction] 96 % Nona Maloney APRN.ROLLS MILL OPERATOR Work Phone: [facility] 02-17-2022 11:32-0400 Systolic blood pressure 122 mm[Hg] Nona Maloney APRN.ROLLS MILL OPERATOR Work Phone: [facility] 02-10-2022 09:14-0400 Diastolic blood pressure 76 mm[Hg] Mi Nurse Work Phone: [facility] 02-10-2022 09:14-0400 Heart rate 62 /min Mi Nurse Work Phone: [facility] 02-10-2022 09:14-0400 Systolic blood pressure 128 mm[Hg] Mi Nurse Work Phone: [facility] 01-13-2022 08:58-0400 Diastolic blood pressure 64 mm[Hg] Dallas Reed MD Work Phone: [facility] 01-13-2022 08:58-0400 Heart rate 60 /min Dallas Reed MD Work Phone: [facility] 01-13-2022 08:58-0400 Systolic blood pressure 150 mm[Hg] Dallas Reed MD Work Phone: [facility] 01-13-2022 08:47-0400 Body temperature 97.5 [degF] Dallas Reed MD Work Phone: [facility] 01-13-2022 08:47-0400 Body weight 73.94 kg Dallas Reed MD Work Phone: [facility] 01-13-2022 08:47-0400 Respiratory rate 20 /min Dallas Reed MD Work Phone: [facility] 11-12-2021 14:57-0500 Body height 172.[address] Dallas Reed Work Phone: [facility] Work Phone: 11-12-2021 14:57-0500 Body mass index (BMI) [Ratio] 25.4 kg/m2 Dr. Dallas Reed Work Phone: [facility] Work Phone: 11-12-2021 14:57-0500 Body weight 75.[address] Dallas Reed Work Phone: [facility] Work Phone: 11-12-2021 14:57-0500 Diastolic blood pressure 73 mm[Hg] Dr. Dallas Reed Work Phone: [facility] Work Phone: 11-12-2021 14:57-0500 Heart rate 92 /min Dr. Dallas Reed Work Phone: [facility] Work Phone: 11-12-2021 14:57-0500 Respiratory rate 18 /min Dr. Dallas Reed Work Phone: [facility] Work Phone: 11-12-2021 14:57-0500 SaO2% (BldA) [Mass fraction] 99 % Dr. Dallas Reed Work Phone: [facility] Work Phone: 11-12-2021 14:57-0500 Systolic blood pressure 132 mm[Hg] Dr. Dallas Reed Work Phone: [facility] Work Phone: 07-19-2019 11:45-0400 Body Temperature 98.01 [degF] [place], [place] 07-19-2019 11:45-0400 BP Diastolic 94 mm[Hg] [place], [place] 07-19-2019 11:45-0400 BP Systolic 165 mm[Hg] [place] 07-19-2019 11:45-0400 Pulse (Heart Rate) 76 /min [place], [place] 07-19-2019 11:45-0400 Pulse Oximetry 95 % [place] 07-19-2019 11:45-0400 Respiratory Rate 20 /min [place], [place] 07-19-2019 07:14-0400 BMI (Body Mass Index) 28.94 kg/m2 [place], [place] 07-19-2019 07:14-0400 Body weight 88.91 kg [place] 07-19-2019 07:14-0400 Height 175.3 cm [place] Encounters Encounter Date Encounter Type Care Provider Facility Start: 07-02-2025 ambulatory Donato Longoria Facility:[facility] Start: 06-11-2025 End: 06-11-2025 ambulatory DARYA BORDEN Facility:[facility] Start: 06-05-2025 End: 06-05-[address] Dallas Reed MD Work Phone: -Laboratory Start: 06-05-2025 End: 06-05-2025 Patient encounter procedure Mike Jay NP-[facility] -Laboratory Work Phone: Start: 06-05-2025 End: 06-05-2025 Patient encounter procedure Mike HENSLEY -[facility] Work Phone: Start: 06-05-2025 End: 06-05-[address] Dallas Reed MD Work Phone: -[facility] Start: 06-05-2025 End: 06-05-2025 ambulatory Mike Jay NP Facility:[facility] Start: 05-24-2025 End: 05-24-2025 ambulatory Vicky Crandall MA [facility] Start: 05-24-2025 End: 05-24-2025 Patient encounter procedure Vicky Crandall MA [facility] Comment on above: Population Health Na [...] 05-23-2025 End: 05-23-2025 ambulatory Shirley Walker RN [employer] Start: 05-23-2025 End: 05-23-2025 Telephone encounter Shirley Walker RN [employer] Comment on above: Opened In Error (OPE NATALIYA IN ERROR/) Start: 05-22-2025 Non-patient / Non-visit Dr. Charleen Laughlin MD -[facility] Start: 05-21-2025 Non-patient / Non-visit Dr. Lorraine albright MD -[facility] Start: 05-21-2025 ambulatory Lorraine [facility] Facility:[facility] Start: 05-21-2025 End: 05-22-2025 Evaluation and management of inpatient Dr. Cameron Solares DO -Intensive Care Unit Work Phone: Start: 05-18-2025 End: 05-18-2025 Office outpatient visit 25 minutes Darya Borden [employer]ROLLS MILL OPERATOR Work Phone: [facility] Comment on above: Fatigue, unspecified type (Primary Dx); Essential hypertension; Chronic diastolic CHF (congestive heart failure) (HCC); Anemia, unspecified type; Subclinical hypothyroidism Start: 05-18-2025 End: 05-18-2025 ambulatory DARYA BORDEN Facility:[facility] Start: 05-10-2025 End: 05-10-2025 Patient encounter procedure Mike Jay INSERTER-C -[facility] Work Phone: Start: 05-10-2025 End: 05-10-[address] Dallas Reed MD Work Phone: -[facility] Start: 05-10-2025 End: 05-10-2025 ambulatory Mike Jay INSERTER Facility:[facility] Start: 04-30-2025 End: 04-30-[address] Dallas Reed MD Work Phone: -Cat Scan [facility] Start: 04-30-2025 End: 04-30-[address] Dustin Hawk MD -Cat Scan [facility] Work Phone: Start: 04-30-2025 End: 04-30-2025 ambulatory Dallas Reed Facility:[facility] Start: 04-18-2025 End: 04-18-[address] Dustin Hawk MD -[facility] Work Phone: Start: 04-18-2025 End: 04-18-[address] Dallas Reed MD Work Phone: -[facility] Start: 04-03-2025 End: 04-03-2025 ambulatory Luci Matute RN [employer] Comment on above: Bi-Weekly Outreach ( Recurring) for Chronic Disease Management, Bi-Weekly Outreach (Recurring) for Chronic Disease Management Start: 03-28-2025 End: 03-28-2025 Refill Dallas Reed MD Work Phone: [facility] [place] Comment on above: Refill Request Start: 03-20-2025 End: 03-20-2025 ambulatory Adriane White RN [employer] Start: 03-20-2025 End: 03-20-2025 Patient encounter procedure Adriane White RN [employer] Comment on above: Bi-Weekly Outreach ( Recurring) for Chronic Disease Management Start: 03-19-2025 End: 03-19-2025 Telephone encounter Essence Romero PA-C Work Phone: [facility] Comment on above: 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) Start: 03-16-2025 End: 03-16-2025 Patient encounter status Ana Bobo MD Work Phone: [facility] Start: 03-16-2025 End: 03-16-2025 Subsequent hospital visit by physician Ana Bobo MD Work Phone: [facility] Special Procedures Comment on above: Encounter for prepro cedural laboratory examination (Primary Dx); Type II endoleak of aortic graft Start: 03-16-2025 End: 03-16-2025 ambulatory [facility] Start: 03-16-2025 End: 03-16-2025 Encounter for preprocedural laboratory examination [facility] Start: 03-13-2025 End: 03-13-2025 Follow-up encounter Darya Borden APRN.CNP Work Phone: [facility] Start: 03-12-2025 End: 03-12-2025 Telephone encounter Munira Dickinson RN [facility] Special Procedur es Start: 03-12-2025 End: 03-12-2025 Office outpatient visit 25 minutes Darya Borden APRN.ROLLS MILL OPERATOR Work Phone: [facility] [place] Comment on above: Subclinical hypothyr oidism (Primary Dx); Fatigue, unspecified type; Type II endoleak of aortic graft; Anemia of chronic disease; Stage 3b chronic kidney disease (HCC); Essential hypertension; Chronic diastolic CHF (congestive heart failure) (HCC) Start: 03-12-2025 End: 03-12-2025 ambulatory DARYA BORDEN [facility] [facility] Start: 03-02-2025 End: 03-02-2025 ambulatory Adriane White RN Landscape Photographer Management Start: 03-02-2025 End: 03-02-2025 Patient encounter procedure Adriane White RN Landscape Photographer Management Comment on above: Bi-Weekly Outreach ( Recurring) for Chronic Disease Management Start: 03-01-2025 End: 03-01-2025 Documentation procedure Ana Bobo MD Work Phone: [facility] Special Procedures Start: 02-27-2025 End: 02-27-2025 Patient encounter procedure Carine PEREZ -[facility] Work Phone: Start: 02-27-2025 End: 02-27-[address] Dallas Reed MD Work Phone: [facility] Work Phone: Start: 02-26-2025 End: 02-26-2025 ambulatory Adriane White automobile mechanic supervisorLandscape Photographer Management Start: 02-26-2025 End: 02-26-2025 Patient encounter procedure Adriane White automobile mechanic supervisorLandscape Photographer Management Comment on above: Care Coordination (C lerma review and outreach for chf gdmt care path) Start: 02-19-2025 End: 02-19-2025 ambulatory Adriane White RN Landscape Photographer Management Start: 02-19-2025 End: 02-19-2025 Patient encounter procedure Adriane White automobile mechanic supervisorLandscape Photographer Management Comment on above: Bi-Weekly Outreach ( Recurring) for Chronic Disease Management Start: 02-15-2025 End: 02-16-2025 Refill Dallas Reed MD Work Phone: [facility] [place] Comment on above: Refill Request Start: 02-14-2025 ambulatory Dustin Hawk Facility:[facility] Start: 02-14-2025 Non-patient / Non-visit Dr. Dustin ramirez MD -[facility] Start: 02-14-2025 End: 02-14-2025 Admission to same day surgery center Dr. Dustin Hawk MD -Management Development Specialist/Special Procedures Work Phone: Start: 02-14-2025 End: 02-14-[address] Dallas Reed MD Work Phone: [facility] Work Phone: Start: 02-01-2025 End: 02-01-2025 ambulatory Adriane White RN Landscape Photographer Management Start: 02-01-2025 End: 02-01-2025 Patient encounter procedure Adriane White RN Landscape Photographer Management Comment on above: Bi-Weekly Outreach ( Recurring) for Chronic Disease Management Start: 01-18-2025 End: 01-18-2025 Patient encounter [facility] Work Phone: Start: 01-17-2025 End: 01-18-2025 ambulatory Adriane White RN Landscape Photographer Management Start: 01-17-2025 End: 01-17-2025 Patient encounter procedure Adriane White RN Landscape Photographer Management Comment on above: Initial enrollment o zoie for Chronic Disease Management Start: 01-12-2025 End: 01-12-2025 Emergency department patient visit Dr. Dallas Reed MD Work Phone: -Emergency Department Work Phone: Start: 12-26-2024 End: 12-26-2024 ambulatory Adriane White RN Landscape Photographer Management Start: 12-26-2024 End: 12-26-2024 Patient encounter procedure Adriane White RN Landscape Photographer Management Comment on above: Weekly phone contact (Recurring) for Transitional Care Management Start: 12-25-2024 End: 12-25-[address] Dustin Hawk MD -[facility] Work Phone: Start: 12-25-2024 End: 12-25-2024 ambulatory Dustin Hawk Facility:[facility] Start: 12-22-2024 End: 12-22-2024 ambulatory Ramon Lee PT Work Phone: [facility] Comment on above: Proximal leg weaknes s (Primary Dx); Fall, subsequent encounter; Contusion of scalp, subsequent encounter Start: 12-19-2024 End: 12-19-2024 Patient encounter procedure Adriane White RN Landscape Photographer Management Comment on above: Weekly phone contact (Recurring) for Transitional Care Management Start: 12-19-2024 End: 12-19-2024 ambulatory Ramon Yvonne PT Work Phone: [facility] Comment on above: Proximal leg weaknes s (Primary Dx); Fall, subsequent encounter; Contusion of scalp, subsequent encounter Start: 12-15-2024 End: 12-15-2024 ambulatory Ramon Yvonne PT Work Phone: [facility] Comment on above: Proximal leg weaknes s (Primary Dx); Fall, subsequent encounter; Contusion of scalp, subsequent encounter Start: 12-12-2024 End: 12-12-2024 ambulatory Ramon Lee PT Work Phone: [facility] Comment on above: Proximal leg weaknes s (Primary Dx) Start: 12-11-2024 End: 12-11-2024 ambulatory Adriane White automobile mechanic supervisorLandscape Photographer Management Start: 12-11-2024 End: 12-11-2024 Patient encounter procedure Adriane White automobile mechanic supervisorLandscape Photographer Management Comment on above: Weekly phone contact (Recurring) for Transitional Care Management Refill Request Start: 12-11-2024 End: 12-11-2024 Telephone encounter Emily Fagan [facility] Work Phone: [facility] Comment on above: Medication Question Start: 12-08-2024 End: 12-08-2024 ambulatory DALLAS REED Facility:[facility] Start: 12-08-2024 End: 12-08-2024 Patient encounter procedure Dallas Reed MD Work Phone: [facility] [place] Comment on above: 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); Chronic diastolic CHF (congestive heart failure) (HCC); Stage 3b chronic kidney disease (HCC); Essential hypertension Start: 12-08-2024 End: 12-08-2024 ambulatory Ramon Lee PT Work Phone: [facility] Comment on above: Fall, subsequent enc ounter (Primary Dx); Proximal leg weakness; Contusion of scalp, subsequent encounter Start: 12-06-2024 End: 12-06-2024 ambulatory Ramon Lee PT Work Phone: [facility] Comment on above: Fall, subsequent enc ounter (Primary Dx); Proximal leg weakness; Contusion of scalp, subsequent encounter Start: 12-04-2024 End: 12-05-2024 ambulatory Adriane White automobile mechanic supervisorLandscape Photographer Management Start: 12-04-2024 End: 12-05-2024 Patient encounter procedure Adriane White RN Landscape Photographer Management Comment on above: Initial phone contac t for Transitional Care Management Transition Of Care; Heart Failure (TCM Pharmacy-Hospital discharge 12/01/24) Start: 12-02-2024 End: 12-02-2024 Telephone encounter Dustin Lombardi LACQUER COATER.ROLLS MILL OPERATOR Work Phone: Cardiothoracic Comment on above: Patient Question; Me dication Problem Start: 11-28-2024 End: 12-01-2024 Evaluation and management of inpatient RAN AGUSTÍN Facility:[facility] Start: 11-28-2024 End: 11-28-2024 Emergency department patient visit Dr. Dallas Reed MD Work Phone: -Emergency Department Work Phone: Start: 11-28-2024 End: 11-28-2024 Subsequent hospital visit by physician [facility] Cat Scan Comment on above: Left lower quadrant abdominal pain [R10.32] Start: 11-28-2024 End: 11-28-2024 ambulatory Tali Maldonado APRN.ROLLS MILL OPERATOR Work Phone: Critical Care Start: 11-28-2024 End: 12-08-2024 Telephone encounter Dallas Reed MD Work Phone: [facility] [place] Comment on above: Results Start: 11-27-2024 End: 11-27-2024 ambulatory DARYA BORDEN Facility:[facility] Start: 11-27-2024 End: 11-27-2024 ambulatory DALLAS REED Facility:[facility] Start: 11-27-2024 End: 11-27-2024 Patient encounter procedure Gavin Rivero APRN.ROLLS MILL OPERATOR Work Phone: [facility] Comment on above: Procedure not ammy d out (Primary Dx) Left lower quadrant abdominal pain (Primary Dx) Start: 11-24-2024 End: 11-24-2024 ambulatory Ramon Lee PT Work Phone: [facility] Comment on above: Fall, subsequent enc ounter (Primary Dx); Proximal leg weakness; Contusion of scalp, subsequent encounter Start: 11-21-2024 End: 11-21-2024 ambulatory Ramon Lee PT Work Phone: [facility] Comment on above: Fall, subsequent enc ounter (Primary Dx); Contusion of scalp, subsequent encounter; Proximal leg weakness Start: 11-09-2024 End: 11-09-2024 ambulatory DALLAS REED Facility:[facility] Start: 11-09-2024 End: 11-09-2024 Office outpatient visit 15 minutes Dallas Reed MD Work Phone: [facility] [place] Comment on above: Contusion of scalp, subsequent encounter (Primary Dx); Fall, subsequent encounter; Proximal leg weakness Start: 11-07-2024 End: 11-07-2024 ambulatory DALLAS REED Facility:[facility] Start: 11-07-2024 End: 11-07-2024 Patient encounter procedure Elbert Hawk APRN.ROLLS MILL OPERATOR Work Phone: [facility] Comment on above: Abrasion of head, in itial encounter (Primary Dx) Start: 10-02-2024 End: 10-02-2024 Refill Darya Borden APRN.ROLLS MILL OPERATOR Work Phone: [facility] [place] Comment on above: Refill Request Start: 09-15-2024 End: 09-15-[address] Lara Fonseca MD -[facility] Work Phone: Start: 09-15-2024 End: 09-15-2024 ambulatory Lara Fonseca [facility] Start: 09-08-2024 End: 09-08-2024 Telephone encounter Darya Borden APRN.ROLLS MILL OPERATOR Work Phone: [facility] [place] Comment on above: Results Start: 09-07-2024 End: 09-07-2024 ambulatory DARYA BORDEN Facility:[facility] Start: 09-07-2024 End: 09-07-2024 Patient encounter procedure Darya Borden APRN.ROLLS MILL OPERATOR Work Phone: [facility] [place] Comment on above: Medicare annual well ness visit, subsequent (Primary Dx); Hypothyroidism, unspecified type; TIA (transient ischemic attack); Mixed hyperlipidemia; Primary hypertension; Screening for depression; Encounter for screening examination for other mental health and behavioral disorders; Spigelian hernia; Stage 3b chronic kidney disease (HCC) Start: 08-31-2024 ambulatory Lara Fonseca Facilit y:[facility] Start: 08-31-2024 Non-patient / Non-visit Dr. Garrison Fonseca MD -[facility] Start: 08-31-2024 End: 08-31-2024 Admission to same day surgery center Dr. Lara Fonseca MD -Surgical Day Care Start: 08-31-2024 End: 08-31-2024 ambulatory Lara Fonseca Facility:[facility] Start: 08-28-2024 End: 08-28-2024 ambulatory Fide Goff RN Landscape Photographer Management Comment on above: CDM (Chronic Disease Management Routine Call/) Start: 08-24-2024 End: 08-24-2024 ambulatory Fide Goff RN Landscape Photographer Management Comment on above: CDM (Chronic Disease Management Routine Call/) Start: 08-23-2024 ambulatory Lara Fonseca Facilit y:[facility] Start: 08-23-2024 Non-patient / Non-visit Dr. Garrison Fonseca MD -[facility] Start: 08-04-2024 End: 08-04-2024 ambulatory DALLAS REED Facility:[facility] Start: 08-01-2024 End: 08-03-2024 Telephone encounter Dallas Reed MD Work Phone: [facility] [place] Comment on above: Surgical Clearance F orms Start: 07-26-2024 End: 07-26-2024 ambulatory Lara Fonseca Facility:[facility] Start: 07-24-2024 End: 07-24-2024 ambulatory Fide Goff RN Landscape Photographer Management Comment on above: CDM (Chronic Disease Management Routine Call/) Start: 07-22-2024 End: 07-22-2024 ambulatory Fide Goff RN Landscape Photographer Management Comment on above: CDM (Chronic Disease Management Routine Call/) Start: 07-17-2024 End: 07-17-2024 ambulatory JOCELIN MAXIME Facility:[facility] Start: 07-17-2024 End: 07-17-2024 Office outpatient visit 25 minutes Dallas Reed MD Work Phone: [facility] [place] Comment on above: Spigelian hernia (Pr imary Dx); 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); S/P AAA repair; Pancreatic cyst; Splenomegaly Start: 07-11-2024 End: 07-11-2024 Emergency department patient visit Dallas Reed Facility:[facility] Start: 07-11-2024 End: 07-11-2024 ambulatory DALLAS REED Facility:[facility] Start: 07-11-2024 End: 07-11-2024 Patient encounter procedure Gavin Rivero LACQUER COATER.ROLLS MILL OPERATOR Work Phone: [facility] Comment on above: Procedure not ammy d out (Primary Dx) Start: 07-07-2024 End: 07-07-2024 ambulatory Carine Noble Facility:[facility] Start: 06-22-2024 End: 06-23-2024 ambulatory Fide Goff RN Landscape Photographer Management Comment on above: CDM (Engagement Call [...] above: Consult Start: 03-22-2024 Refill Darya silva LACQUER COATER.ROLLS MILL OPERATOR Work Phone: [facility] [place] Comment on above: Refill Request Start: 03-11-2024 End: 03-11-2024 Patient encounter procedure Prema Agee DUSTIN.ROLLS MILL OPERATOR Work Phone: [facility] Comment [...] encounter Dallas casey MD Work Phone: [facility] [place] Comment on above: Results Start: 02-10-2024 Refill Dallas jaramillo MD Work Phone: Family [facility] [place] Comment on above: Refill Request Start: 02-09-2024 End: 02-09-2024 Subsequent hospital visit by physician Xr [facility] [place] Work Phone: Radiology Comment on above: Acute pain of both s angelics [M25.511, M25.512] Start: 02-09-2024 End: 02-09-2024 Patient encounter procedure Ayla Carrasquillo PA-C Work Phone: [place] [facility] Comment on above: Acute pain [...] End: 01-10-2024 Patient encounter procedure Darya Borden APRN.ROLLS MILL OPERATOR Work Phone: [facility] [place] Comment on above: Primary hypertension (Primary Dx); [...] encounter status Shaun Kowalski MD Work Phone: [facility] Start: 12-31-2023 Telephone encounter Shaun mendoza MD Work Phone: Vascular Surg Dept Comment on above: Consult Start: 12-27-2023 End: 12-27-2023 ambulatory [facility] Work Phone: Start: 12-27-2023 End: 12-27-2023 Patient encounter procedure [facility]: Start: 11-28-2023 ambulatory Fide Goff RN [facility] bul[facility] Care Management Comment on above: Community Monitoring Outreach Start: 08-10-2023 End: 08-10-2023 Patient encounter procedure Darya Singh APRN.CNP Work Phone: [facility] [place] Comment on above: Medicare annual well ness visit, subsequent (Primary Dx) Start: 08-03-2023 End: 08-03-[address] Dallas Reed Work Phone: [facility] Work Phone: Start: 08-03-2023 End: 08-03-[address] Dallas Reed Work Phone: [facility] Work Phone: Start: 06-25-2023 Refill Dallas jaramillo MD Work Phone: [facility] [place] Comment on above: Refill Request Start: 06-25-2023 End: 06-25-[address] Dallas Reed Work Phone: [facility] Work Phone: Start: 05-26-2023 End: 05-26-[address] Dallas Reed Work Phone: [facility] Work Phone: Start: 05-26-2023 End: 05-26-[address] Dallas Reed Work Phone: [facility] Work Phone: Start: 05-20-2023 ambulatory [facility] Comment on above: Community Monitoring Outreach Start: 04-19-2023 End: 04-19-[address] Dallas Reed Work Phone: [facility] Work Phone: Start: 04-19-2023 End: 04-19-[address] Dallas Reed Work Phone: [facility] Work Phone: Start: 04-16-2023 End: 04-16-2023 Patient encounter procedure Dallas Reed MD Work Phone: [facility] [place] Comment on above: Primary hypertension (Primary Dx); S/P AAA repair Start: 04-08-2023 Non-patient / Non-visit Dr. Ilana Reed Work Phone: [facility] Start: 04-07-2023 Non-patient / Non-visit Dr. Ilana Reed Work Phone: [facility] Start: 04-07-2023 End: 04-08-2023 Evaluation and management of inpatient Dr. Dallas Reed Work Phone: [facility]-Progressive Care Unit Work Phone: Start: 04-01-2023 End: 04-01-2023 Non-patient / Non-visit Dr. Dallas Reed Work Phone: [facility] Work Phone: Start: 03-05-2023 End: 03-05-[address] Dallas Reed Work Phone: [facility] Work Phone: Start: 03-04-2023 End: 03-04-2023 Patient encounter procedure Dallas Reed MD Work Phone: [facility] [place] Comment on above: Primary hypertension (Primary Dx); Abdominal aortic aneurysm (AAA) without rupture, unspecified part (HCC) Start: 02-25-2023 End: 02-25-[address] Dallas Reed Work Phone: [facility] Work Phone: Start: 02-23-[address] Dallas Reed Work Phone: [facility] Start: 02-23-2023 End: 02-23-[address] Dallas Reed Work Phone: [facility] Work Phone: Start: 02-01-2023 End: 02-01-2023 Office outpatient visit 25 minutes Aubrie Gomez PA-C Work Phone: [facility] Comment on above: Acute maxillary sinu sitis, recurrence not specified (Primary Dx); Acute otitis media, right Start: 01-19-2023 Telephone encounter Lisa Rodriguez MD Work Phone: [facility] [place] Comment on above: Medication Authoriza tion Start: 01-19-2023 Non-patient / Non-visit Dr. Ilana Reed Work Phone: [facility] Start: 01-19-2023 End: 01-19-[address] Dallas Reed Work Phone: [facility] Work Phone: Start: 01-19-2023 End: 01-19-[address] Dallas Reed Work Phone: [facility]-Cardiovascular Services Start: 01-18-2023 Orders Only [facility] Start: 01-15-2023 End: 01-15-2023 Subsequent hospital visit by physician Lisa Rodriguez MD Work Phone: Ambulatory Surgery Comment on above: Diarrhea, unspecifie d type [R19.7] Start: 01-13-2023 ambulatory Lisa Rodriguez MD Work Phone: Ambulatory Surgery Start: 01-07-2023 End: 01-07-2023 Patient encounter procedure Lisa Rodriguez MD Work Phone: [facility] Comment on above: Diarrhea, unspecifie d type Start: 12-30-2022 End: 12-30-2022 Patient encounter procedure Dallas Reed MD Work Phone: [facility] [place] Comment on above: Diarrhea, unspecifie d type (Primary Dx); Chronic diastolic CHF (congestive heart failure) (HCC); Abdominal aortic aneurysm (AAA) without rupture, unspecified part (HCC) Start: 07-03-2022 End: 07-03-2022 Patient encounter procedure Gavin Rivero LACQUER COATER.ROLLS MILL OPERATOR Work Phone: [facility] Comment on above: Loose stools (Primar y Dx) Start: 05-26-2022 Refill Dallas jaramillo MD Work Phone: [facility] [place] Comment on above: Refill Request Start: 03-11-2022 Refill Dallas jaramillo MD Work Phone: [facility] [place] Comment on above: Refill Request Start: 02-18-2022 Telephone encounter Elsie wallace LACQUER COATER.ROLLS MILL OPERATOR Work Phone: [facility] Comment on above: Results Start: 02-17-2022 End: 02-17-2022 Patient encounter procedure Nona Haider VAZQUEZ Work Phone: [facility] Comment on above: Cough (Primary Dx); Acute upper respiratory infection, unspecified Start: 02-10-2022 End: 02-10-2022 Nursing evaluation of patient and report Mi Nurse Work Phone: Family Medicine [place] Comment on above: BENIGN HYPERTENSION (Primary Dx) Start: 02-09-2022 ambulatory Denver Elizalde RN Am [facility] Management Comment on above: Community Monitoring Outreach (CHF/ CKD Telephonic Outreach) Start: 02-06-2022 ambulatory Denver Elizalde RN [facility] Comment on above: Community Monitoring Outreach (CHF/ CKD CDM Outreach) Start: 01-13-2022 End: 01-13-2022 Patient encounter procedure Dallas Reed MD Work Phone: [facility] [place] Comment on above: Stage 3a chronic kid james disease (HCC) (Primary Dx); Chronic diastolic CHF (congestive heart failure) (HCC); Abdominal aortic aneurysm (AAA) without rupture (HCC); BENIGN HYPERTENSION; Other hyperlipidemia Start: 01-12-2022 Non-patient / Non-visit Dr. Ilana Reed Work Phone: [facility] Start: 01-12-2022 End: 01-12-[address] Dallas Reed Work Phone: [facility]-Cardiovascular Services Start: 12-08-2021 ambulatory Denver Elizalde RN [facility] Management Comment on above: Community Monitoring Outreach (CHF / CKD CDM Outreach ) Start: 11-12-2021 End: 11-12-[address] Dallas Reed Work Phone: [facility] Start: 07-19-2019 End: 07-19-2019 Subsequent hospital visit by physician Yariel Blas Work Phone: [facility] General Surgery Comment on above: Pain in right hip Start: 03-10-2018 Ambulatory MOODY MONTES Facility :[facility] Start: 01-14-2018 End: 01-14-2018 Ambulatory [facility] Facility:[facility] Start: 01-08-[address] Dallas Reed Work Phone: [facility] Start: 09-09-2017 End: 09-09-2017 Ambulatory [facility] Facility:[facility] Start: 01-09-2015 End: 03-15-2018 Patient encounter status Darya Borden GEORGE Work Phone: [facility] Procedures Date Procedure Procedure Detail Performing [...] Comment: Speci men Type: BLOOD SPECIMENOrdering Facility: [facility] Address: [address] [place] [address] Performed By: #### T SCR ####CC [facility] BLOOD BANKCLIA [id number] [address] [place] Start: 11-28-2024 Urnls dip stick/tabl et reagent auto microscopy Dr. Dallas Reed MD Work Phone: Start: 11-28-2024 Computed tomography of abdomen and pelvis with intravenous contrast Dr. Dallas Reed MD Work Phone: Start: 11-28-[address] Dallas Reed MD Work Phone: Start: 11-28-2024 Ct abdomen & pelvis w/contrast material Darya Borden APRN.ROLLS MILL OPERATOR Work Phone: Start: 11-27-2024 Urnls dip stick/tabl et rgnt auto w/o microscopy Darya Borden APRN.ROLLS MILL OPERATOR Work Phone: Start: 09-07-2024 Adult depression screening assessment Darya Borden APRN.ROLLS MILL OPERATOR Work Phone: Start: 02-09-2024 Radex shoulder [...] Author Start: 03-16-2028 Diabetes Screening Diabetes Screening [facility] Start: 12-02-2027 Diabetes Screening Diabetes Screening [facility] Start: 11-30-2027 Diabetes Screening Diabetes Screening [facility] Start: 11-29-2027 Diabetes Screening Diabetes Screening [facility] Start: 11-28-2027 Diabetes Screening Diabetes Screening [facility] Start: 08-04-2027 Diabetes Screening Diabetes Screening [facility] Start: 05-31-2027 Diabetes Screening Diabetes Screening [facility] Start: 08-30-2026 Diabetes Screening Diabetes Screening [facility] Start: 03-19-2026 Influenza vaccination Influenza Vaccine (#1) [place] Donnell pichardo Comment on above: Postponed from 05/21/2025 (Declined at t his time) Start: 03-16-2026 Creatinine measurement Creatinine Level [facility] Start: 03-16-2026 Potassium measurement Potassium Level [facility] Start: 03-12-2026 Thyroid stimulating hormone measurement TSH Level [facility] Start: 02-04-2026 DIABETES SCREEN DIABETES SCREEN [facility] Start: 02-04-2026 Diabetes Screening Diabetes Screening [facility] Start: 09-12-2025 End: 09-12-2025 Patient encounter procedure 09/12/2025 8:40 AM EST Office Visit [facility] [place] [address] [place] [id number] Dallas Reed MD [address] [place] [address] medicare wellness 6 months [facility] [place] Comment on above: medicare wellness 6 months Start: 09-07-2025 Anxiety Screening Anxiety Screening [facility] Start: 09-07-2025 Depression Screening Depression Screening [facility] Start: 09-07-2025 Medicare Annual Wellness Visit Medicare Annual Wellness Visit [facility] Start: 09-07-2025 RSV Vaccine (1 - 1-dose 75+ series) RSV Vaccine (1 - 1-dose 75+ series) [facility] Comment on above: Postponed from 01/03/2015 (Declined at t his time) Start: 09-07-2025 Shingrix Vaccine (2 of 3) Shingrix Vaccine (2 of 3) [facility] Comment on above: Postponed from 10/13/2014 (Declined at t his time) Start: 09-07-2025 Urine microalbumin profile DTaP,Tdap,Td Vaccine (1 - Tdap) [facility] Comment on above: Postponed from 07/08/2005 (Declined at t his time) Start: 08-20-2025 End: 03-19-2026 CT Abdomen and Pelvis W contrast IV CTA abdomen pelvis angiogram w and/or wo IV contrast 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 Expected: 08/20/2025, Expires: 03[facility]19/2026 [facility] Comment on above: Expected: 08/20/2025, Expires: Start: 07-17-2025 Covid-19 Vaccine () Covid-19 Vaccine () [facility] Comment on above: Postponed from 05/21/2024 (Declined at t his time) Start: 07-17-2025 DIABETES SCREEN DIABETES SCREEN [facility] Start: 07-02-2025 Catheterization of left heart [facility] Start: 06-11-2025 End: 06-11-2025 Patient encounter procedure 06/11/2025 8:40 AM EDT Office Visit [facility] [address] [place] [address] Darya Borden, LACQUER [employer]ATER.[facility] [address] [place] [address] follow up 4 weeks [facility] Comment on above: follow up 4 weeks Start: 06-05-2025 End: 06-05-2025 Evaluation of diagnostic study results [facility] Start: 05-24-2025 End: 05-24-2025 Patient encounter procedure 05/24/2025 2:20 PM EDT Office Visit [facility] [address] [place] [address] Dallas Reed MD [address] [place] [address] Discharged [facility] 05/22/25 - D[place], exacerbation of heart failure [facility] Comment on above: Discharged [facility] 05/22/25 - DAL[place], exacerbatio n of heart failure Start: 05-22-2025 Patient discharge [facility] Start: 05-22-2025 [facility] Start: 05-22-2025 Chest 1 View (Portable) Chest 1 View (Portable) [facility] Start: 05-22-2025 XR Chest Single view [facility] Start: 05-21-2025 Influenza vaccination [facility] Start: 05-21-2025 Referral to communications equipment supervisor [facility] Start: 05-21-2025 Following clinical pathway protocol [facility] Start: 05-21-2025 Assessment of risk of venous thromboembolism [facility] Start: 05-21-2025 Catheterization of vein [facility] Start: 05-21-2025 Incentive spirometry [facility] Start: 05-21-2025 Insertion of catheter into peripheral vein [facility] Start: 05-21-2025 Measuring intake and output [facility] Start: 05-21-2025 Providing care according to standard [facility] Start: 05-21-2025 Provision of activity privileges [facility] Start: 05-21-2025 Referral for physical therapy [facility] Start: 05-21-2025 Referral to retail manager in training [facility] Start: 05-21-2025 Referral to service [facility] Start: 05-21-2025 [facility] Start: 05-21-2025 Urinalysis complete panel - Urine [facility] Start: 05-21-2025 Verification routine [facility] Start: 05-21-2025 Admission procedure [facility] Start: 05-21-2025 Hospital admission, emergency, from emergency room, medical nature [facility] Start: 05-21-2025 T4 free measurement [facility] Start: 05-21-2025 [facility] Start: 05-18-2025 End: 08-17-2025 Cobalamin (Vitamin B12) [Mass/volume] in Serum or Plasma [facility] Comment on above: Expected: 05/18/2025, Expires: Start: 05-18-2025 End: 08-17-2025 Ferritin [Mass/volume] in Serum or Plasma [facility] Comment on above: Expected: 05/18/2025, Expires: Start: 05-18-2025 End: 08-17-2025 Folate [Mass/volume] in Serum or Plasma [facility] Comment on above: Expected: 05/18/2025, Expires: Start: 05-18-2025 End: 08-17-2025 Iron and Iron binding capacity panel - Serum or Plasma [facility] Comment on above: Expected: 05/18/2025, Expires: Start: 05-18-2025 End: 08-17-2025 Thyrotropin [Units/volume] in Serum or Plasma [facility] Work Phone: Comment on above: Expected: 05/18/2025, Expires: Start: 03-19-2025 Influenza vaccination Influenza Vaccine (#1) [facility] Comment on above: Postponed from 05/21/2024 (Declined at t his time) Start: 03-16-2025 End: 03-16-2025 Patient encounter procedure 03/16/2025 11:00 AM EDT Appointment [facility] [address] [place] [address] [facility] Start: 03-12-2025 End: 06-11-2025 Thyrotropin [Units/volume] in Serum or Plasma [facility] Work Phone: Comment on above: Expected: 03/12/2025, Expires: Start: 03-12-2025 End: 06-11-2025 Thyroxine (T4) free [Mass/volume] in Serum or Plasma [facility] Comment on above: Expected: 03/12/2025, Expires: Start: 03-12-2025 End: 03-12-2025 Patient encounter procedure 03/12/2025 8:40 AM EDT Office Visit [facility] [address] [place], [place] [id number] Darya Borden, LACQUER [employer]ATER.[employer] [address] [place] [address] follow up 6 months [facility] Comment on above: follow up 6 months Start: 03-01-2025 End: 03-01-2026 Guidance for embolization of Vessels IR Embolization 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 Expected: 03/01/2025, Expires: 03/01/2026 [facility] [employer] Work Phone: Comment on above: Expected: 03/01/2025, Expires: Start: 02-14-2025 Elevation of head of bed [facility] Start: 02-14-2025 Patient education [facility] Start: 02-14-2025 End: 02-14-2025 Taking patient vital signs [facility] Start: 02-14-2025 Wound care [facility] Start: 02-14-2025 End: 02-14-2025 [facility] Start: 02-14-2025 Bedrest [facility] Start: 02-14-2025 End: 02-14-2025 Notification of physician [facility] Start: 02-14-2025 Patient discharge [facility] Start: 02-14-2025 Provision of activity privileges [facility] Start: 02-14-2025 End: 02-14-2025 Pulse taking [facility] Start: 01-13-2025 DIABETES SCREEN DIABETES SCREEN [facility] Start: 01-12-2025 [facility] Start: 12-22-2024 End: 12-22-2024 ambulatory 12/22/2024 9:15 AM EDT OT/PT/Speech Visit [facility] [address] [place] [address] Ramon Lee, PT [address] [place] [address] S00.03XD (ICD-10-CM) - Contusion of scalp, subsequent encounter [facility] Comment on above: S00.03XD (ICD-10-CM) - Contusion of scal p, subsequent encounter Start: 12-19-2024 End: 12-19-2024 ambulatory 12/19/2024 9:15 AM EDT OT/PT/Speech Visit [facility] [address] [place] [address] Ramon Lee, PT [address] [place] [address] S00.03XD (ICD-10-CM) - Contusion of scalp, subsequent encounter [facility] Comment on above: S00.03XD (ICD-10-CM) - Contusion of scal p, subsequent encounter Start: 12-15-2024 End: 12-15-2024 ambulatory 12/15/2024 9:15 AM EDT OT/PT/Speech Visit [facility] [address] [place] [address] Ramon Lee, PT [address] [place] [address] S00.03XD (ICD-10-CM) - Contusion of scalp, subsequent encounter [facility] Comment on above: S00.03XD (ICD-10-CM) - Contusion of scal p, subsequent encounter Start: 12-12-2024 End: 12-12-2024 ambulatory 12/12/2024 9:15 AM EDT OT/PT/Speech Visit [facility] [address] [place] [place] [address] Ramon Lee, PT [address] [place] [address] S00.03XD (ICD-10-CM) - Contusion of scalp, subsequent encounter [facility] Comment on above: S00.03XD (ICD-10-CM) - Contusion of scal p, subsequent encounter Start: 12-08-2024 End: 12-08-2024 Patient encounter procedure 12/08/2024 11:40 AM EDT Office Visit [facility] [address] [place] [address] Dallas Reed MD [address] [place] [address] hospital discharge follow up. needs to see PCP or WEN in 7 days. [facility] Comment on above: hospital discharge follow up. needs to s ee PCP or WEN in 7 days. Start: 12-08-2024 End: 12-08-2024 ambulatory 12/08/2024 9:15 AM EDT OT/PT/Speech Visit [facility] [address] [facility], [place] [id number] Ramon Lee, PT [address] [place] [address] S00.03XD (ICD-10-CM) - Contusion of scalp, subsequent encounter [facility] Comment on above: S00.03XD (ICD-10-CM) - Contusion of scal p, subsequent encounter Start: 12-07-2024 End: 03-08-2025 Thyrotropin [Units/volume] in Serum or Plasma THYROID STIMULATING HORMONE Lab Routine Subclinical hypothyroidism Expected: 12/07/2024 (Approximate), Expires: 03/08/2025 [facility] Work Phone: Comment on above: Expected: 12/07/2024 (Approximate), Expi res: 03/08/2025 Start: 12-06-2024 End: 12-06-2024 ambulatory 12/06/2024 9:15 AM EDT OT/PT/Speech Visit [facility] [address] [place] [address] Ramon Lee, PT [address], [place] [address] S00.03XD (ICD-10-CM) - Contusion of scalp, subsequent encounter [facility] Comment on above: S00.03XD (ICD-10-CM) - Contusion of scal p, subsequent encounter Start: 11-29-2024 End: 11-29-2024 ambulatory 11/29/2024 7:45 AM EDT OT/PT/Speech Visit [facility] [address] [place] [address] Ramon Lee, PT [address], [place] [id number] S00.03XD (ICD-10-CM) - Contusion of scalp, subsequent encounter [facility] Comment on above: S00.03XD (ICD-10-CM) - Contusion of scal p, subsequent encounter Start: 11-28-2024 [facility] Start: 11-28-2024 End: 11-28-2024 Patient encounter procedure Cat Scan Comment on above: LLQ abdominal pain [R10.32] Start: 11-24-2024 End: 11-24-2024 ambulatory 11/24/2024 7:45 AM EST OT/PT/Speech Visit [facility] [address] [place] [address] Ramon Lee, PT [address] [place], [place] [address] S00.03XD (ICD-10-CM) - Contusion of scalp, subsequent encounter [facility] Comment on above: S00.03XD (ICD-10-CM) - Contusion of scal p, subsequent encounter Start: 11-21-2024 End: 11-21-2024 ambulatory 11/21/2024 10:45 AM EST OT/PT/Speech Visit [facility] [address] [place] [address] Ramon Lee, PT [address] [place] [address] x: Contusion of scalp, subsequent encounter [S00.03XD]; Fall, subsequent encounter [W19.XXXD]; Proximal leg weakness [R29.898] [facility] Comment on above: x: Contusion of scalp, subsequent encoun ter [S00.03XD]; Fall, subsequent encounter [W19.XXXD]; Proximal leg weakness [R29.898] Start: 11-09-2024 End: 11-09-2024 Patient encounter procedure 11/09/2024 2:00 PM EST Office Visit [facility] [address] [place], [place] [id number] Dallas Reed MD [address] [place] [address] express care follow up-hit head [facility] Comment on above: express care follow up-hit head Start: 09-20-2024 Advance Directive Discussion Advance Directive Discussion [facility] Start: 09-07-2024 End: 12-07-2024 Thyroxine (T4) free [Mass/volume] in Serum or Plasma [facility] Work Phone: Comment on above: Expected: 09/07/2024, Expires: Start: 09-07-2024 End: 12-07-2024 Triiodothyronine (T3) [Mass/volume] in Serum or Plasma [facility] Comment on above: Expected: 09/07/2024, Expires: Start: 09-07-2024 End: 09-07-2024 Patient encounter procedure 09/07/2024 10:00 AM EST Office Visit [facility] [address] [place] [address] Darya Borden, LACQUER COATER.[employer] [address] [place], [place] [id number] Medicare Wellness ; routine follow up [facility] Comment on above: Medicare Wellness ; routine follow up Start: 08-31-2024 [facility] Start: 08-31-2024 Anesthesia hernia repair upper abdomen nos ANES HRNA RPR UPR ABD NOS [facility] Start: 08-31-2024 RPR AA HRN 1ST < 3 CM RDC RPR AA HRN 1ST < 3 CM RDC [facility] Start: 08-31-2024 Patient discharge [facility] Start: 08-14-2024 End: 08-14-2024 Patient encounter procedure 08/14/2024 12:00 PM EST Office Visit [facility] [address] [place] [address] Dallas Reed MD [address] [place], [place] [id number] Medicare Wellness ; routine follow up [facility] Comment on above: Medicare Wellness ; routine follow up Start: 08-10-2024 Covid-19 Vaccine (#1) Covid-19 Vaccine (#1) [facility] Comment on above: Postponed from 1940 (Declined at t his time) Start: 08-10-2024 Covid-19 Vaccine ( season) Covid-19 Vaccine ( - season) [facility] Comment on above: Postponed from 05/21/2023 (Declined at t his time) Start: 08-10-2024 RSV Vaccine (1 - 1-dose 60+ series) RSV Vaccine (1 - 1-dose 60+ series) [facility] Comment on above: Postponed from 2000 (Declined at t his time) Start: 08-10-2024 RSV Vaccine (1 - 1-dose 75+ series) RSV Vaccine (1 - 1-dose 75+ series) [facility] Comment on above: Postponed from 01/03/2015 (Declined at t his time) Start: 08-10-2024 Shingrix Vaccine (2 of 3) Shingrix Vaccine (2 of 3) [facility] Comment on above: Postponed from 10/13/2014 (Declined at t his time) Start: 08-10-2024 Urine microalbumin profile DTaP,Tdap,Td Vaccine (1 - Tdap) [facility] Comment on above: Postponed from 07/08/2005 (Declined at t his time) Start: 07-19-2024 End: 10-18-2024 CBC panel - Blood by Automated count COMPLETE BLOOD COUNT Lab Routine Thrombocytopenia (HCC) Expected: 07/19/2024, Expires: 10/18/2024 [facility] Work Phone: Comment on above: Expected: 07/19/2024, Expires: Start: 07-19-2024 End: 10-18-2024 Comprehensive metabolic 2000 panel - Serum or Plasma COMPREHENSIVE METABOLIC PANEL Lab Routine Stage 3b chronic kidney disease (HCC) Expected: 07/19/2024, Expires: 10/18/2024 [facility] Comment on above: Expected: 07/19/2024, Expires: Start: 07-19-2024 End: 10-18-2024 Lipid 1996 panel - Serum or Plasma LIPID PANEL BASIC Lab Routine Mixed hyperlipidemia Expected: 07/19/2024, Expires: 10/18/2024 [facility] Comment on above: Expected: 07/19/2024, Expires: Start: 07-19-2024 End: 10-18-2024 Thyrotropin [Units/volume] in Serum or Plasma THYROID STIMULATING HORMONE Lab Routine Abnormal TSH Mixed hyperlipidemia Expected: 07/19/2024, Expires: 10/18/2024 [facility] Comment on above: Expected: 07/19/2024, Expires: Start: 07-19-2024 End: 07-19-2024 ambulatory 07/19/2024 7:30 AM EDT Results Only [facility] [address] [facility] [place] [address] [facility] Start: 07-02-2024 DIABETES SCREEN DIABETES SCREEN [facility] Start: 05-23-2024 End: 08-22-2024 CBC W Auto Differential panel - Blood COMPLETE BLOOD COUNT AND DIFFERENTIAL Lab Routine BENIGN HYPERTENSION Weight loss Fatigue, unspecified type Expected: 05/23/2024, Expires: 08/22/2024 [facility] Work Phone: Comment on above: Expected: 05/23/2024, Expires: 4 Start: 05-23-2024 End: 08-22-2024 Cobalamin (Vitamin B12) [Mass/volume] in Serum or Plasma VITAMIN B12 Lab Routine BENIGN HYPERTENSION Weight loss Fatigue, unspecified type History of anemia Expected: 05/23/2024, Expires: 08/22/2024 [facility] Comment on above: Expected: 05/23/2024, Expires: Start: 05-23-2024 End: 08-22-2024 Comprehensive metabolic 2000 panel - Serum or Plasma COMPREHENSIVE METABOLIC PANEL Lab Routine BENIGN HYPERTENSION Weight loss Fatigue, unspecified type Expected: 05/23/2024, Expires: 08/22/2024 [facility] Comment on above: Expected: 05/23/2024, Expires: 4 Start: 05-23-2024 End: 08-22-2024 Ferritin [Mass/volume] in Serum or Plasma FERRITIN Lab Routine BENIGN HYPERTENSION Weight loss Fatigue, unspecified type History of anemia Expected: 05/23/2024, Expires: 08/22/2024 [facility] Comment on above: Expected: 05/23/2024, Expires: Start: 05-23-2024 End: 08-22-2024 Iron and Iron binding capacity panel - Serum or Plasma IRON AND TIBC Lab Routine BENIGN HYPERTENSION Weight loss Fatigue, unspecified type History of anemia Expected: 05/23/2024, Expires: 08/22/2024 [facility] Comment on above: Expected: 05/23/2024, Expires: Start: 05-23-2024 End: 08-22-2024 Thyrotropin [Units/volume] in Serum or Plasma THYROID STIMULATING HORMONE Lab Routine BENIGN HYPERTENSION Fatigue, unspecified type Expected: 05/23/2024, Expires: 08/22/2024 [facility] Comment on above: Expected: 05/23/2024, Expires: Start: 05-23-2024 End: 08-22-2024 Urinalysis complete panel - Urine URINALYSIS, WITH MICROSCOPIC Lab Routine Weight loss Fatigue, unspecified type Expected: 05/23/2024, Expires: 08/22/2024 [facility] Comment on above: Expected: 05/23/2024, Expires: Start: 05-21-2024 Covid-19 Vaccine ( season) Covid-19 Vaccine ( season) [facility] Start: 05-21-2024 Covid-19 Vaccine ( season) Covid-19 Vaccine ( season) [facility] Start: 05-21-2024 Influenza vaccination [facility] Start: 05-15-2024 End: 05-15-2024 Patient encounter procedure 05/15/2024 11:00 AM EDT Office Visit Orthopaedics [address] [place] [address] Izzy Guadalupe PA-C [address] [place] [address] Acute pain of both shoulders [M25.511, M25.512] Orthopa[facility]ics Comment on above: Acute pain of both shoulders [M25.511, M 25.512] Start: 01-17-2024 End: 01-17-2024 Patient encounter procedure [facility] Comment on above: Endoleak aortic graft Start: 12-27-2023 Following clinical pathway protocol [facility] Start: 10-16-2023 Influenza vaccination [facility] Comment on above: Postponed from 05/21/2023 (Declined at t his time) Start: 09-20-2023 Advance Directive Discussion Advance Directive Discussion [facility] Start: 09-20-2023 Behavioral Health Screening Behavioral Health Screening [facility] Start: 09-20-2023 Depression Assessment Depression Assessment [facility] Start: 07-15-2023 COVID-19 VACCINE (#1) COVID-19 VACCINE (#1) [facility] Comment on above: Postponed from 1940 (Declined at t his time) Start: 07-15-2023 SHINGRIX VACCINE (2 of 3) SHINGRIX VACCINE (2 of 3) [facility] Comment on above: Postponed from 10/13/2014 (Declined at t his time) Start: 07-15-2023 Urine microalbumin profile [facility] Comment on above: Postponed from 07/08/2005 (Declined at t his time) Start: 05-26-2023 Following clinical pathway protocol [facility] Start: 05-21-2023 Influenza vaccination [facility] Start: 04-08-2023 Patient discharge [facility] Start: 04-08-2023 Urinary bladder residual urine study [facility] Start: 04-08-2023 [facility] Start: 04-08-2023 Removal of urinary catheter [facility] Start: 04-07-2023 Oxygen therapy [facility] Start: 04-07-2023 Following clinical pathway protocol [facility] Start: 04-07-2023 End: 04-07-2023 Bedrest [facility] Start: 04-07-2023 Elevation of head of bed [facility] Start: 04-07-2023 Incentive spirometry [facility] Start: 04-07-2023 Insertion of catheter into artery [facility] Start: 04-07-2023 Measuring intake and output [facility] Start: 04-07-2023 Neurovascular assessment [facility] Start: 04-07-2023 Nil by mouth [facility] Start: 04-07-2023 Notification of physician [facility] Start: 04-07-2023 Patient education [facility] Start: 04-07-2023 Tobacco use cessation education [facility] Start: 04-07-2023 Vital signs measurements [facility] Start: 04-07-2023 [facility] Start: 04-07-2023 [facility] Start: 04-07-2023 Admission procedure [facility] Start: 09-20-2022 ADVANCE DIRECTIVE DISCUSSION ADVANCE DIRECTIVE DISCUSSION [facility] Start: 09-20-2022 DEPRESSION ASSESSMENT DEPRESSION ASSESSMENT [facility] Start: 07-15-2022 End: 09-14-2022 CBC panel - Blood by Automated count CBC Lab Routine Stage 3a chronic kidney disease (HCC) Expected: 07/15/2022, Expires: 09/14/2022 [facility] Work Phone: Comment on above: Expected: 07/15/2022, Expires: 2 Start: 07-15-2022 End: 09-14-2022 Comprehensive metabolic 2000 panel - Serum or Plasma COMP METABOLIC PANEL Lab Routine Chronic diastolic CHF (congestive heart failure) (HCC) Expected: 07/15/2022, Expires: 09/14/2022 [facility] Work Phone: Comment on above: Expected: 07/15/2022, Expires: 2 Start: 07-15-2022 End: 09-14-2022 LIPID PANEL BASIC LIPID PANEL BASIC Lab Routine Other hyperlipidemia Expected: 07/15/2022, Expires: 09/14/2022 [facility] Work Phone: Comment on above: Expected: 07/15/2022, Expires: 2 Start: 07-09-2022 COVID-19 VACCINE (#1) COVID-19 VACCINE (#1) [facility] Comment on above: Postponed from 01/03/1945 (Declined at t his time) Postponed from 07/05 (Declined at this time) Start: 07-09-2022 COVID-19 VACCINE (1) COVID-19 VACCINE (1) [facility] Comment on above: Postponed from 01/03/1945 (Declined at t his time) Start: 07-09-2022 SHINGRIX VACCINE (2 of 3) SHINGRIX VACCINE (2 of 3) [facility] Comment on above: Postponed from 10/13/2014 (Declined at t his time) Start: 07-09-2022 Urine microalbumin profile DTAP,TDAP,TD (1 - Tdap) [facility] Comment on above: Postponed from 07/08/2005 (Declined at t his time) Start: 05-21-2022 Influenza vaccination [facility] Start: 03-19-2022 Influenza vaccination INFLUENZA (#1) [facility] Comment on above: Postponed from 05/21/2021 (Declined at t his time) Start: 02-17-2022 End: 03-03-2022 Influenza virus A and B RNA and SARS-CoV-2 (COVID-19) N gene panel - Respiratory specimen by ELIZABETH with probe detection COVID WITH FLUA+B, ROUTINE Microbiology Routine Cough Acute upper respiratory infection, unspecified Expected: 02/17/2022, Expires: 03/03/2022 [facility] Work Phone: Comment on above: Expected: 02/17/2022, Expires: 2 Start: 01-13-2022 End: 03-15-2022 Basic metabolic 2000 panel - Serum or Plasma [facility] Work Phone: Comment on above: Expected: 01/13/2022, Expires: 2 Start: 09-20-2021 ADVANCE DIRECTIVE DISCUSSION ADVANCE DIRECTIVE DISCUSSION [facility] Start: 09-20-2021 DEPRESSION ASSESSMENT DEPRESSION ASSESSMENT [facility] Start: 07-19-2020 Creatinine measurement Creatinine Level [facility] Start: 07-19-2020 Potassium measurement Potassium Level [facility] Start: 07-04-2019 Annual Wellness [facility]AWV[facility] Start: 05-21-2019 Influenza vaccination Flu vaccine (#1) [facility] Start: 01-03-2015 RSV Immunization for Adults (1 - 1-dose 75+ series) RSV Immunization for Adults (1 - 1-dose 75+ series) [facility] Start: 01-03-2015 RSV Vaccine (1 - 1-dose 75+ series) RSV Vaccine (1 - 1-dose 75+ series) [facility] Start: 10-13-2014 Shingles Vaccine (2 of 3) Shingles Vaccine (2 of 3) [place] Start: 10-13-2014 Shingrix Vaccine (2 of 3) Shingrix Vaccine (2 of 3) [facility] Start: 10-13-2014 Zoster Vaccines (2 of 3) Zoster Vaccines (2 of 3) [facility] Start: 07-08-2005 DTaP/Tdap/Td Vaccines (1 - Tdap) DTaP/Tdap/Td Vaccines (1 - Tdap) [facility] Start: 07-08-2005 Urine microalbumin profile DTaP,Tdap,Td Vaccine (1 - Tdap) [facility] Start: 01-03-1959 DTaP/Tdap/Td vaccine (1 - Tdap) DTaP/Tdap/Td vaccine (1 - Tdap) [place] Start: 01-03-1958 Anxiety Screening Anxiety Screening [facility] Start: 01-03-1958 Depression Screening Depression Screening [facility] Start: 1952 Depression Screening Depression Screening [facility] Start: 1940 Creatinine monitoring Creatinine monitoring [place], [place] Start: 1940 Echocardiography Echocardiogram [facility] Start: 1940 Lipid panel Lipid Panel [facility] Start: 1940 Medicare Annual Wellness (AWV) Medicare Annual Wellness (AWV) [facility] Start: 1940 Potassium monitoring Potassium monitoring [place], [place] End: 07-19-2019 Anaerobic Culture Anaerobic Culture Microbiology Routine Once for 1 Occurrences starting 07/19/2019 until 07/19/2019 [place] Comment on above: Once for 1 Occurrences starting 07/19/20 19 until 07/19/2019 Anaerobic Culture Anaerobic Cult ure Microbiology Routine 07/19/2019 9:00 AM EDT [place] Bacteria identified in Urine by Culture BACTERIAL CULTURE, URINE Microbiology Routine Left lower quadrant abdominal pain 11/27/2024 11:46 AM EDT [facility] Basic metabolic 2008 panel with ionized calcium - Serum or Plasma [facility] Basic metabolic 2007 panel with ionized calcium - Serum or Plasma [facility] Basic metabolic 2007 panel with ionized calcium - Serum or Plasma [facility] Blood chemistry [facility] End: 07-19-2019 Body Fluid Culture Body Fluid Culture Microbiology Routine Once for 1 Occurrences starting 07/19/2019 until 07/19/[facility] Comment on above: Once for 1 Occurrences starting 07/19/20 19 until 07/19/2019 Body Fluid Culture Body Fluid Cu lture Microbiology Routine 07/19/2019 9:00 AM ED[facility] Cal[facility] [Mass/m ass] in Stool CALPROTECTIN,FECAL Lab Routine Diarrhea, unspecified type Ordered: 12/30/2022 [facility] Work Phone: Comment on above: Ordered: 12/30/2022 CBC W Auto Different ial panel - Blood [facility] CBC W Auto Different ial panel - [facility] Cholesterol [Mass/vo lume] in Serum or Plasma [facility] Cholesterol in HDL [Mass/volume] in Serum or Plasma [facility] Clostridioides diffi cile toxin genes [Presence] in Stool by ELIZABETH with probe detection C. DIFFICILE PCR Lab Routine Loose stools Ordered: 07/03/2022 [facility] Work Phone: Comment on above: Ordered: 07/03/2022 Clostridioides diffi cile toxin genes [Presence] in Stool by ELIZABETH with probe detection C. DIFFICILE PCR Lab Routine Diarrhea, unspecified type Ordered: 12/30/2022 [facility] Work Phone: Comment on above: Ordered: 12/30/2022 End: 01-08-2024 COLONOSCOPY DIAGNOSTIC COLONOSCOPY DIAGNOSTIC Endoscopy Routine Diarrhea, unspecified type 1 Occurrences starting 01/07/2023 until 01/08/2024 [facility] Work Phone: Comment on above: 1 Occurrences starting 01/07/2023 until 01/08/2024 CT Abdomen and Pelvis [facility] CT Abdomen and Pelvis [facility] End: 12-27-2025 CT Abdomen and Pelvis W contrast IV CT ABD/PEL W IVCON Radiology STAT Left lower quadrant abdominal pain 1 Occurrences starting 11/27/2024 until 12/27/2025 [facility] Work Phone: Comment on above: 1 Occurrences starting 11/27/2024 until 12/27/2025 End: 02-03-2025 CTA Abdominal vessels and Pelvis vessels WO and W contrast IV CTA ABD/PEL WO/W IVCON Radiology Routine Encounter for other preprocedural examination 1 Occurrences starting 01/05/2024 until 02/03/2025 [facility] Work Phone: Comment on above: 1 Occurrences starting 01/05/2024 until 02/03/2025 End: 02-03-2025 CTA Chest vessels WO and W contrast IV CTA CHEST (NONGATED) WO/W IVCON Radiology Routine Encounter for other preprocedural examination 1 Occurrences starting 01/05/2024 until 02/03/2025 [facility] Work Phone: Comment on above: 1 Occurrences starting 01/05/2024 until 02/03/2025 End: 07-19-2019 EKG 12 Lead EKG 12 Lead ECG STAT One Time for 1 Occurrences starting 07/19/2019 until 07/19/2019 [place] Comment on above: One Time for 1 Occurrences starting 06/22 until 07/19/2019 ENTERIC BACTERIAL PA SKYE BY PCR ENTERIC BACTERIAL PANEL BY PCR Lab Routine Loose stools Ordered: 07/03/2022 [facility] Work Phone: Comment on above: Ordered: 07/03/2022 Erythrocyte mean corpuscular volume determination [facility] FECAL LACTOFERRIN/LEUKOCYTES FECAL LACTOFERRIN/LEUKOCYTES Lab Routine Diarrhea, unspecified type Ordered: 12/30/2022 [facility] Work Phone: Comment on above: Ordered: 12/30/2022 Glomerular filtratio n rate/1.73 sq M.predicted [Volume Rate/Area] in Serum, Plasma or Blood by Creatinine-based formula (CKD-EPI) [facility] End: 03-16-2025 Guidance for embolization of Vessels [facility] Work Phone: Comment on above: Once for 1 Occurrences starting 03/16/20 until 03/16/2025 Hematocrit [Volume Fraction] of Blood [facility] Hemoglobin [Mass/vol ume] in Blood [facility] Hemoglobin.robi srivastava alCheryllower [Presence] in Stool by Immunoassay IMMUNOCHEMICAL FECAL OCCULT BLOOD TEST Lab Routine BENIGN HYPERTENSION Weight loss Fatigue, unspecified type Ordered: 05/23/2024 [facility] Comment on above: Ordered: 05/23/2024 Leukocytes [#/volume ] in Blood [facility] Low density lipoprot ein cholesterol measurement [facility] Magnesium measurement [facility] Mean corpuscular hemoglobin concentration determination [facility] Mean corpuscular hemoglobin determination [facility] Natriuretic peptide. B prohormone N-Terminal [Mass/volume] in Serum or Plasma [facility] Neutrophil count [facility] Neutrophil percent differential count [facility] Ova and parasites identified in Unspecified specimen by Light microscopy OVA + PARA MICROSCOPIC Microbiology Routine Loose stools Ordered: 07/03/2022 [facility] Work Phone: Comment on above: Ordered: 07/03/2022 Patient Education [facility] Work Phone: Patient referral [facility] Work Phone: Platelets [#/volume] in Blood [facility] Red blood cell count [facility] Red cell distributio n width determination [facility] T4 free measurement [facility] Thyroid stimulating hormone measurement [facility] Total cholesterol:HD L ratio measurement [facility] Triglycerides measurement [facility] Troponin T.cardiac [Mass/volume] in Serum or Plasma by High sensitivity method [facility] VLDL cholesterol measurement [facility] Immunizations Immunization Date Immunization Notes Care Provider Orlando valenzuela 07-13-2020 influenza (HD-IIV4) vaccine, age 65+ yr, high dose, quadrivalent, PF (FLUZONE HIGH-DOSE) Darya Older [employer] Work Phone: [facility] 07-13-2020 influenza, high dose seasonal, preservative-free Goffglendy Elizalde RN [facility] 07-13-2020 influenza virus vacc ine, unspecified formulation Dallas Reed MD Work Phone: [facility] 07-21-2019 influenza, high dose seasonal, preservative-free Goff Fide RN [facility] Work Phone: 08-10-2018 influenza, high dose seasonal, preservative-free Goff Fide RN [facility] Work Phone: 02-10-2018 pneumococcal conjuga te vaccine, 13 valent Denver Elizalde RN [facility] Work Phone: 07-30-2017 influenza, high dose seasonal, preservative-free Denver Elizalde RN [facility] 07-21-2016 influenza, high dose seasonal, preservative-free Goff Fide RN [facility] 08-20-2015 influenza, high dose seasonal, preservative-free Goff Fide RN [facility] Work Phone: 08-20-2015 influenza, injectabl e, quadrivalent, preservative free Dr. Dallas Reed Work Phone: [facility] 08-20-2015 influenza, seasonal, injectable Dr. Dallas Reed Work Phone: [facility] 08-20-2015 influenza, seasonal, injectable, preservative free Darya Older [employer] Work Phone: [facility] 08-18-2014 zoster vaccine, live Denver Elizalde RN [facility] Work Phone: 07-10-2014 influenza, high dose seasonal, preservative-free Goffglendy Elizalde RN [facility] Work Phone: 07-10-2014 influenza, seasonal, injectable Goff Fide RN [facility] Work Phone: 07-10-2014 pneumococcal polysaccharide vaccine, 23 valent Denver Elizalde RN [facility] Work Phone: 07-15-2010 influenza virus vacc ine, whole virus Denver Elizalde RN [facility] Work Phone: 09-18-2009 novel influenza-H1N1 -09, preservative-free, injectable Denver Elizalde RN [facility] Work Phone: 08-07-2009 influenza virus vacc ine, unspecified formulation Denver Elizalde RN [facility] 08-04-2007 influenza virus vacc ine, unspecified formulation Denver Elizalde RN [facility] Work Phone: 07-26-2006 influenza virus vacc ine, unspecified formulation Denver Elizalde RN [facility] 07-07-2005 tetanus and diphther ia toxoids, adsorbed, preservative free, for adult use (2 Lf of tetanus toxoid and 2 Lf of diphtheria toxoid) Denver Elizalde RN [facility] Work Phone: 06-20-2004 pneumococcal polysaccharide vaccine, 23 valent Denver Elizalde RN [facility] Payers Date Payer Category Payer [facility] [id number] 2024 Self-pay [id number] 2024 Medicare [id number] 2018 Medicare [id number] 2017 Commercial Managed C are - HMO MMO SUPERMED ACCESS [id number] 2012 Private Health Insurance [id number] 2012 Unknown [facility] [id number] 2012-Present [address] [place] [address] Indemnity [id number] 2012 Unknown [id number]. 1.13.159.2 .[id number] 2012 Unknown [id number] 2004 Medicare MEDICARE MEDICAR E A AND B [id number] 2004-Present [phone] [address] [address] [place] [address] Medicare [id number] 2004 Medicare [id number]. 1.13.159.2 .[id number] 2004 Medicare [id number] Medicare [id number] Unknown [id number] 2.840.1.892233.3.579.2 .462 Unknown [id number] 2.840.1.675564.3.579.2 .462 Unknown [id number] 2.840.1.536283.3.579.2 .462 Unknown [id number] 2.16840.1.311652.3.579.2 .462 Unknown [id number] 2.16.840.1.354042.3.579.2 .462 Unknown [id number] 2.16840.1.499829.3.579.2 .462 Unknown [id number] 2.16840.1.029828.3.579.2 .462 Unknown [id number] 2.16.840.1.903038.3.579.2 .462 Unknown [id number] 2.16.840.1.022952.3.579.2 .462 Unknown [id number] 2.16.840.1.255209.3.579.2 .462 Unknown [id number] 2.16.840.1.201349.3.579.2 .462 Unknown [id number] 2.16.840.1.527040.3.579.2 .462 Unknown [id number] 2.16.840.1.563882.3.579.2 .462 Unknown [id number] 2.840.1.364803.3.579.2 .462 Unknown [id number] 2.16.840.1.633282.3.579.2 .462 Unknown [id number] 2.16.840.1.339481.3.579.2 .462 Unknown [id number] 2.16.840.1.787982.3.579.2 .462 Unknown [id number] 2.16.840.1.564092.3.579.2 .462 Unknown [id number] 2.16.840.1.224852.3.579.2 .462 Unknown [id number] 2.16.840.1.213075.3.579.2 .462 Unknown [id number] 2.16.840.1.552653.3.579.2 .462 Unknown [id number] 2.16.840.1.309282.3.579.2 .462 Unknown [id number] 2.16.840.1.089361.3.579.2 .462 Unknown [id number] 2.16.840.1.421273.3.579.2 .462 Unknown [id number] 2.16.840.1.505521.3.579.2 .462 Unknown [id number] 2.16.840.1.102148.3.579.2 .462 Social History Date Type Detail Facility Start: 07-19-2019 End: 05-21-2025 Tobacco smoking status NHIS Former smoker [facility] Work Phone: Start: 07-19-2019 End: 02-04-2023 Alcohol intake Not Currently [facility] Start: 1940 Sex Assigned At Not on file [place], [place] Start: 09-20-1962 End: 09-20-1964 History of tobacco use Current smoker [facility] Work Phone: Start: 09-20-1962 End: 09-20-1964 History of tobacco use Cigarette Smoker [facility] Work Phone: Start: 02-10-2018 End: 02-04-2023 Cigarettes smoked current (pack per day) - Reported 1 [facility] Start: 02-10-2018 End: 05-23-2024 Tobacco use and exposure Smokeless tobacco non-user [facility] Work Phone: Start: 09-14-2021 End: 05-24-2025 Alcohol intake Current non-drinker of alcohol (finding) [facility] Start: 07-04-2021 History SDOH Alcohol Frequency 1 [facility] Start: 05-31-2020 History SDOH Alcohol Binge 99 [facility] Start: 07-04-2021 History SDOH Social Connections Phone 3 [facility] Start: 07-04-2021 History SDOH Social Connections Get Together 2 [facility] Start: 07-04-2021 History SDOH Social Connections Meetings 98 [facility] Start: 07-04-2021 History SDOH Financial 5 [facility] Start: 07-04-2021 Education 12 [facility] Start: 01-03-2022 End: 07-03-2022 Exposure to SARS-CoV-2 (event) Not sure [facility] Work Phone: Start: 11-12-2021 End: 06-25-2023 Tobacco smoking status NHIS Unknown if ever smoked [facility] Start: 10-13-2016 None [facility] Start: 10-13-2016 Spouse/ Significant Other [facility] Start: 01-20-2021 Cigarettes [facility] Start: 1940 Sex Assigned At Male [facility] Do you belong to any clubs or organizations such as zoroastrianism groups, unions, fraternal or athletic groups, or school groups? Yes [facility] Start: 08-21-2012 How often do you attend meetings of the clubs or organizations you belong to? Patient refused [facility] Are you now , , , , never or living with a partner? [facility] How often to you hav e a drink containing alcohol? Never [facility] Do you feel stress - tense, restless, nervous, or anxious, or unable to sleep at night because your mind is troubled all the time - these days [OSQ] Not at all [facility] (I/We) worried wheth er (my/our) food would run out before (I/we) got money to buy more. Never true [facility] In the past 12 month s, was there a time when you were not able to pay the mortgage or rent on time? No [facility] Start: 04-20-2022 End: 11-28-2024 Sex Male (finding) [facility] How hard is it for y ou to pay for the very basics like food, housing, medical care, and heating Not very hard [facility] Start: 09-08-2022 End: 03-19-2025 Alcoholic beverage intake Ex-drinker (finding) [facility] Medical Equipment Procedure Code Equipment Code Equipment Origin al Text Equipment Identifier Dates Repair, hernia, ventral, with mesh insertion ([id number]) Extra-gynaecological surgical mesh, composite-polymer ([id number] FDA Start: 08-31-2024 Evacuation, hematoma SEALANT,FLOSEAL HEMOSTATIC [...] SUTURE,LIGA CLIP SM [id number] FDA Start: 01-20-2021 ([id number]) Abdominal aorta endovascular stent-graft ()[id number] FDA Start: 04-07-2023 Abdominal aorta endovascular stent-graft ()[id number] FDA Start: 04-07-2023 Abdominal aorta endovascular stent-graft ()[id number] FDA Start: 04-07-2023 Femoral vessel s uture implantation set ()[id number] FDA Start: 04-07-2023 Kit Embo Avm Gi x 18 - [id number] Start: 03-16-2025 Coil Embo Embold 20mm 50cm - [id number] Start: 03-16-2025 Coil Embo Embold 22mm 60cm - [id number] Start: 03-16-2025 Device Clsr Mynx motor and controls tester 6-7fr Grn - [id number] Start: 03-16-2025 Goals Date Patient Goal [...] Assessment Result Facility 05-22-2025 Functional status Ambulates [facility] Work Phone: 12-01-2024 Are you deaf, or do you have serious difficulty hearing No 12/01/2024 1:58 PM Lori Sue, CHRISTIANO No [facility] 12-01-2024 Are you blind, or do you have serious difficulty seeing, even when wearing glasses No 12/01/2024 1:58 PM Lori Sue, CHRISTIANO No [facility] 12-01-2024 Do you have serious difficulty walking or climbing stairs No 12/01/2024 1:58 PM Lori Sue, CHRISTIANO No [facility] 12-01-2024 Do you have difficul ty dressing or bathing No 12/01/2024 1:58 PM Lori Sue, CHRISTIANO No [facility] 12-01-2024 Because of a physica l, mental, or emotional condition, do you have difficulty doing errands alone such as visiting a physician's office or shopping No 12/01/2024 1:58 PM Lori Sue, CHRISTIANO No [facility] 08-31-2024 Functional status Ambulates [facility] Work Phone: 04-08-2023 Functional status Activity Abili ty Standby Assist [facility] Work Phone: 04-08-2023 Functional status Patient Activi ty Chair;Stand with Urinal [facility] Work Phone: 04-08-2023 Functional status None [facility] Work Phone: 01-16-2015 Are you deaf, or do you have serious difficulty hearing No 01/16/2015 3:35 PM EDT Sara Cassidy LPN No [facility] 01-16-2015 Are you blind, or do you have serious difficulty seeing, even when wearing glasses No 01/16/2015 3:35 PM EDT Sara Cassidy LPN No [facility] 01-16-2015 Do you have serious difficulty walking or climbing stairs No 01/16/2015 3:35 PM EDT Sara Cassidy LPN No [facility] 01-16-2015 Do you have difficul ty dressing or bathing No 01/16/2015 3:35 PM EDT Sara Cassidy LPN No [facility] 01-16-2015 Because of a physica l, mental, or emotional condition, do you have difficulty doing errands alone such as visiting a physician's office or shopping No 01/16/2015 3:35 PM EDT Sara Cassidy LPN No [facility] Mental Status Date Assessment Result Facility 05-22-2025 Cognitive function Voice/Name [facility] Work Phone: 05-21-2025 Cognitive function Level Of Cons ciousness Awake;Alert;Appropriate [facility] Work Phone: 12-01-2024 Because of a physica l, mental, or emotional condition, do you have serious difficulty concentrating, remembering, or making decisions No 12/01/2024 1:58 PM EDT Lori Sesay RN No [facility] 11-28-2024 Cognitive function Level Of Cons ciousness Awake;Alert;Appropriate [facility] Work Phone: 08-31-2024 Cognitive function Voice/Name [facility] Work Phone: 12-27-2023 Cognitive function Voice/Name [facility] Work Phone: 05-26-2023 Cognitive function Awake;Alert;Appropriat e [facility] Work Phone: 04-08-2023 Cognitive function Voice/Name;Touch/Shaki ng [facility] Work Phone: 02-25-2023 Cognitive function Voice/Name [facility] Work Phone: 01-16-2015 Because of a physica l, mental, or emotional condition, do you have serious difficulty concentrating, remembering, or making decisions No 01/16/2015 3:35 PM EDT Sara Cassidy LPN No [facility] Clinical Notes 08-26-2017 to 06-11-2025 Francisco Randolph RN - 05/24/2025 3:55 PM EDTPatient Dallas Molina MD - 05/24/2025 2:46 PM EDTBVicky fong MA - 05/24/2025 1:42 PM EDTShirley Walker RN - 05/23/2025 1:26 PM EDT Note Date & Type Note Facility 06-11-2025 Note [facility] 06-07-2025 Note [facility] 05-24-2025 Note [facility] 05-24-2025 History of Present illness Narrative Transition Care Management (TCM) Initial Outreach PCP Update / Actionable Items N/A N/A - No specialty updates needed Patient Source: [id number] (OON) Discharge Initial outreach: TCM discharge report [...] further needs or concerns -H@H sent via [employer], advised to call for any new or worsening symptoms I see that you're using [employer] that s great! I wanted to let you know that you can also give a trusted family member or friend access to your account through what's called proxy access. This allows them to help you manage your healthcare by viewing the provider s messages, upcoming appointments, and test results. Would you be interested in learning more about how to set that up? Patient agrees--[employer] message sent Patient discharged from [facility] Discharge date: 05/22 Admitted for: NSTEMI Readmission Risk: N/A Value-Based Contract: ACO Contact: Contact made with patient: Yes Hi, my name is Francisco Randolph RN and I am calling from the [facility] on behalf of your Primary Care [...] I will send your request to a echo vascular technologist who will contact and assist you with [...] 2025 4:13 PM documented in this encounter [facility] 05-24-2025 Instructions Dallas Reed MD - 05/24/2025 3:07 PM EDT LOSARTAN DECREASED FROM 100 MG TO 50 MG DAILY. documented in this encounter [facility] 05-24-2025 Note [facility] 05-24-2025 History of Present illness Narrative Geno [...] test was negative. 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 His blood [...] (FLONASE) 50 mcg/actuation nasal spray Use 1 Carrie in each nostril daily at bedtime. (Patient [...] ASSESSMENT/PLAN: 1. NSTEMI (non-ST elevated myocardial infarction) ([facility]) - ICD9: 410.70, ICD10: I21.4 (primary diagnosis) - Follow with Dr. Laughlin. 2. Chronic diastolic CHF (congestive heart failure) ([facility]) - ICD9: 428.32, 428.0, ICD10: I50.32 [...] Synthroid. 9. Sacral decubitus ulcer, stage II ([facility]) - ICD9: 707.03, 707.22, ICD10: L89.152 Care discussed. Monitor. Change position every 2 hours. Dallas Reed MD documented in this encounter [facility] 05-24-2025 Note [facility] 05-24-2025 History of Present illness Narrative POPULATION [...] 2025 1:42 PM documented in this encounter [facility] 05-23-2025 Note [facility] 05-23-2025 History of Present illness Narrative Value Based Care Management Inbound Call Provider Action / FYI: Date of Call: 05/23/2025 Time of Call: 1:25 PM Caller Name: Leana Camejo Caller relationship to the patient: Patient Patient identified by Name and Date of : Yes Reason for Call / Main Concern Returning call to [employer] Summary of Callers Concern Patient was discharged from hospital, received call from [facility] Casework Specialist and is requesting return call. Action Taken / Plan Routed to Patient[facility] Cooper Shirley Walker RN May 23, 2025 1:30 PM documented in this encounter [facility] 05-22-2025 Progress note Note Date/Time May 22, 2025 3:[address] [place] [address] Medical Records Department [address] [place] [address] Progress Note 05/22/25 0959 MR#: [id number] Acct: [id number] Name: LEANA CAMEJO Rep #:[id number] : [...] % (Auto) 58.9, Lymph % (Auto) 25.9, [place] % (Auto) 9.6, Eos % (Auto) 4.8, [...] Phosphatase 37 L, [place] [address] H, Total Protein 6.3, Albumin 3.5, Globulin [...] changes since the prior study. Reading Location: [place] [address] Rhythm Strip Rhythm Strip: Atrial flutter Rate: [...] Assessment & Plan Assessment/Plan (1) Non-ST elevation UT (NSTEMI): PLAN: Plan #Nonstemi * patient admitted [...] heparin drip. Charges/Coding Visit Charges Inpatient E&M: 27271 Subs Hosp L2 05/22/25 1538 <Electronically signed by Olamide Morales MD> Olamide Morales MD Cosign Signature (if applicable): CC: ~ Signed [facility] Work Phone: 1(406) 187-679909-02-2025 [facility]09-02-2025 Discharge summary [facility] Medical Records Department [address] [place] [address] Instructions for Home/Discharge Instructions 05/22/25 1723 MR#: [id number] Acct: [id number] Name: LEANA CAMEJO Rep #:[id number] : [...] Primary Care Provider: Dallas Reed Consulting Providers: mEily Horner; Tamera Jorgensen; Marcel Cordova; Randy Soler; Jaciel Bahena; Dedrick Zamarripa; Gilmar Mueller; Dontao Longoria; Cameron Leiva; Lorraine Mcdowell; Alexandru Laughlin; Beronica Turcios; Elisha Eason; Jm Wilson; Sinan Toro; Mike Jay NP; Kylah Arias; Jeremy Sebastian; Cameron Solares; Gricel Donlad Instructions Patient Instructions: ED Heart Disease Risk [...] Laughlin MD; Dr. Beronica Turcios MD; Dr. iSnan Toro MD; Dr. Elisha Eason MD; Dr. Jm Wilson MD; Dr. Dallas Reed MD; CHRIS Chand; CHRIS Murrell ~ Signed [facility]09-02-2025 Progress note [facility] Medical Records Department [address] [place] [address] Progress Note - Cardiology 05/22/25 1620 MR#: [id number] Acct: [id number] Name: LEAAN CAMEJO Rep #:[id number] : 1940 85 From: Alexandru Laughlin MD PCP: Dr. aDllas Reed MD Status:A DM IN Location: ICU [...] % (Auto) 58.9, Lymph % (Auto) 25.9, [place] % (Auto) 9.6, Eos % (Auto) 4.8, [...] Phosphatase 37 L, [place] [address] H, Total Protein 6.3, Albumin 3.5, Globulin [...] % (Auto) 58.9, Lymph % (Auto) 25.9, [place] % (Auto) 9.6, Eos % (Auto) 4.8, [...] changes since the prior study. Reading Location[facility] [address] Assessment & Plan Assessment/Plan (1) Non-ST elevation UT (NSTEMI): PLAN: Patient is bumped his enzymes [...] The patient should be reevaluated in the [facility] office in 2 weeks with one of the WEN's and check a basic metabolic panel to determine the patient's renal function and then see Dr. Laughlin in 6 weeks. Should the patient have symptoms consistent with angina would recommend pursuingleft heart catheterization. PLAN: Plan 1. Continue current medical therapy. 2. Basic metabolic panel and WEN visit with the [place] [facility] in 2 weeks. 3. Patient instructed to call the [place] [facility] should he have any type of chest tightness orsymptoms consistent with angina. 4. Patient to follow-up with Dr. Laughlin in 6 weeks in the office. 05/22/25 1625 Cosigner Signature (if applicable): CC: ~ Signed [facility]09-02-2025 Progress note [facility] Medical Records Department [address] [place] [address] Progress Note 05/22/25 0959 MR#: [id number] Acct: [id number] Name: LEANA CAMEJO Rep #:[id number] : [...] % (Auto) 58.9, Lymph % (Auto) 25.9, [place] % (Auto) 9.6, Eos % (Auto) 4.8, [...] Phosphatase 37 L, [place] [address] H, Total Protein 6.3, Albumin 3.5, Globulin [...] changes since the prior study. Reading Location: [place] [address] Rhythm Strip Rhythm Strip: Atrial flutter Rate: [...] Assessment & Plan Assessment/Plan (1) Non-ST elevation UT (NSTEMI): PLAN: Plan #Nonstemi * patient admitted [...] heparin drip. Charges/Coding Visit Charges Inpatient E&M: 64640 Subs Hosp L2 05/22/25 1532 Olamide Morales MD Cosigner Signature (if applicable): CC: ~ Signed [facility]09-02-2025 Progress note Author Gricel Donald [facility] Note Date/Time May 22, 2025 12:06pm [facility] Medical Records Department [address] [place] [address] Progress Note 05/22/25 1205 MR#: [id number] Acct: [id number] Name: LEANA CAMEJO KRYSTLE Rep #:[id number] [...] Cosigner Signature (if applicable): CC: ~ Signed [facility] Work Phone: 1(933) 635-334209-02-2025 Hospital Discharge instructionsAdditional Instructions [facility]: [facility]: 1(344) 425-484209-02-2025 Progress note Author Alexandru Laughlin [facility] Note Date/Time May 22, 2025 10:42am [facility] Medical Records Department [address] [place] [address] Progress Note - Cardiology 05/22/25 1023 MR#: [id number] Acct: [id number] Name: LEANA CAMEJO Rep #:[id number] : [...] % (Auto) 58.9, Lymph % (Auto) 25.9, [place] % (Auto) 9.6, Eos % (Auto) 4.8, [...] Phosphatase 37 L, [place] [address] H, Total Protein 6.3, Albumin 3.5, Globulin [...] % (Auto) 58.9, Lymph % (Auto) 25.9, [place] % (Auto) 9.6, Eos % (Auto) 4.8, [...] changes since the prior study. Reading Location: [place] [address] Physical Exam Const alert and oriented x3 [...] nephrology's input as well. (2) Non-ST elevation UT (NSTEMI): PLAN: The patient's initial ECG was [...] therapy. 4. 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 Charges/Coding Visit Charges Inpatient E&M: 47675 Subs Hosp L3 05/22/25 1042 <Electronically signed by Alexandru Laughlin MD> Cosigner Signature (if applicable): CC: ~ Signed [facility] Work Phone: 1([phone]) 198-825909-02-2025 Progress note [facility] Medical Records Department [address] [place] [address] Progress Note 05/22/255 MR#: [id number] Acct: [id number] Name: LEANA CAMEJO Rep #:[id number] : 1940 85 From: Gricel echeverria MD PCP: Dr. Dallas Reed MD Status:A DM IN Location: ICU CVICU20 1- Progress Note Went to see patient, was on stress test. Chart reviewed. Creatinine stable. No plans for coronary angiogram as of today. 05/22/25 1206 Gricel Donald MD Cosigner Signature (if applicable): CC: ~ Signed [facility]09-02-2025 Progress note [facility] Medical Records Department [address] [place] [address] Progress Note - Cardiology 05/22/25 1023 MR#: [id number] Acct: [id number] Name: LEANA CAMEJO Rep #:[id number] : [...] % (Auto) 58.9, Lymph % (Auto) 25.9, [place] % (Auto) 9.6, Eos % (Auto) 4.8, [...] Phosphatase 37 L, [place] [address] H, Total Protein 6.3, Albumin 3.5, Globulin [...] % (Auto) 58.9, Lymph % (Auto) 25.9, [place] % (Auto) 9.6, Eos % (Auto) 4.8, [...] changes since the prior study. Reading Location: [place] [address] Physical Exam Const alert and oriented x3 [...] nephrology's input as well. (2) Non-ST elevation UT (NSTEMI): PLAN: The patient's initial ECG was [...] therapy. 4. 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 Charges/Coding Visit Charges Inpatient E&M: 40032 Subs Hosp L3 05/22/25 1042 Cosigner Signature (if applicable): CC: ~ Signed [facility]09-02-2025 Radiology Diagnostic study note [facility] Imaging Services [address] [place] [address] Chest 1 View (Portable) MR#: [id number] Acct: [id number] Name: LEANA CAMEJO Rep #: [id number] : 1940 M 85 From: Christina Shaffer MD PCP: Dr. Dallas Reed MD Status: A DM IN Study:Chest 1 View (Portable) Date of Exam: 05/22/25 Exam# [id number] Ordering Dr: Cameron Dockery DO PROCEDURE: CHEST [...] changes since the prior study. Reading [facility] CC: Dr. Cameron Solares DO; Dr. Dallas Reed MD ~ Shoe Stock Associate: Signed [facility]09-01-2025 Progress note Author Olamide Magdalenocurtis [facility] Note Date/Time May 21, 2025 4:48pm [facility] Medical Records Department [address] [place] [address] Progress Note 05/21/25 1132 MR#: [id number] Acct: [id number] Name: LEANA CAMEJO Rep #:[id number] : [...] 73.0 H, Lymph % (Auto) 16.2 L, [place] % (Auto) 5.8, Eos % (Auto) 3.6, [...] Clarity Clear, Urine pH 7.0, Ur Specific [place] 1.010, Urine Protein 15 H, Urine Glucose [...] bilateral basilar atelectatic pulmonary changes. Reading Location: [place] [address] Rhythm Strip Rhythm Strip: Atrial flutter Rate: [...] Assessment & Plan Assessment/Plan (1) Non-ST elevation UT (NSTEMI): PLAN: Plan #Nonstemi * patient admitted [...] heparin drip. Charges/Coding Visit Charges Inpatient E&M: 95160 Subs Hosp L2 05/21/25 5860 <Electronically signed by Olamide Morales MD> Olamide Morales MD Cosigner Signature (if applicable): CC: ~ Signed [facility] Work Phone: 1(220) 783-723909-01-2025 Progress note [facility] Medical Records Department [address] [place] [address] Progress Note 05/21/25 1132 MR#: [id number] Acct: [id number] Name: LEANA CAMEJO Rep #:[id number] : [...] 73.0 H, Lymph % (Auto) 16.2 L, [place] % (Auto) 5.8, Eos % (Auto) 3.6, [...] Clarity Clear, Urine pH 7.0, Ur Specific [place] 1.010, Urine Protein 15 H, Urine Glucose [...] bilateral basilar atelectatic pulmonary changes. Reading Location: [place] [address] Rhythm Strip Rhythm Strip: Atrial flutter Rate: [...] Assessment & Plan Assessment/Plan (1) Non-ST elevation UT (NSTEMI): PLAN: Plan #Nonstemi * patient admitted [...] heparin drip. Charges/Coding Visit Charges Inpatient E&M: 98539 Subs Hosp L2 05/21/25 1648 Olamide Morales MD Cosigner Signature (if applicable): CC: ~ Signed [facility]09-01-2025 Consult note Author Lorraine Mcdowell [facility] Note Date/Time May 21, 2025 11:00am [facility] Medical Records Department [address] [place] [address] Consultation - Cardiology 05/21/25 1049 MR#: [id number] Acct: [id number] Name: LEANA CAMEJO Rep #:[id number] : [...] endoleak of aortic graft: (7) Non-ST elevation UT (NSTEMI): (8) Elevated TSH: PLAN: 85-year-old patient with multiple medical problems. Presented with symptoms of chest pressure last night to the ED here at [facility]. Patient had a history of hypertension, hyperlipidemia, [...] just has been treated endovascular at the [facility]. Has right carotid endarterectomy with a history [...] And to consider long-term OAC, based on CNP8AR7-OBUv score. Answer all question related to cardiac catheterization to the family at bedside and grandson patient understand and would like to proceed with cardiac cathtomorrow. Lorraine Mcdowell MD,[facility] cushion mat maker HPI Consult Data Date of Consult: 05/21/25 HPI Narrative Reason for Consultation: Non-STEMI/atrial flutter with 2-1 AV block. HPI Narrative: LEANA CAMEJO, is a 85 M who presents [facility] Medical History Spigelian hernia Wears hearing aid [...] (From Allergy Other Verified 05/21/25 01:22 Crestor) Bggqpsv-PSL-WpC Reductase Allergy Other Verified 05/21/25 01:22 Inhibitor (Lsisldo-Ffn-Nyz Reductase Inhibitor) Family History Father Lung cancer [...] Narrative: Patient seen and evaluated at bedside slipman showed normal sinus Cardiac exam S1-S2 is [...] 73.0 H, Lymph % (Auto) 16.2 L, [place] % (Auto) 5.8, Eos % (Auto) 3.6, [...] Clarity Clear, Urine pH 7.0, Ur Specific [place] 1.010, Urine Protein 15 H, Urine Glucose [...] (Auto)73.0 H, Lymph % (Auto) 16.2 L, [place] % (Auto) 5.8, Eos % (Auto) 3.6, [...] Clarity Clear, Urine pH 7.0, Ur Specific [place] 1.010, Urine Protein 15 H, Urine Glucose [...] bilateral basilar atelectatic pulmonary changes. Reading Location: [address] Risk Score for UA/STEMI Assesmment (YES = 1) Risk Stratification Applicable: No 05/21/25 1100 <Electronically signed by Lorraine Mcdowell MD> Cosigner Signature (if applicable): CC: Dr. Dallas Reed MD~ Signed [facility] Work Phone: 1([phone]) 323-652209-01-2025 Consult note [facility] Medical Records Department [address] [place] [address] Consultation - Cardiology 05/21/25 1049 MR#: [id number] Acct: [id number] Name: LEANA CAMEJO Rep #:[id number] : [...] endoleak of aortic graft: (7) Non-ST elevation UT (NSTEMI): (8) Elevated TSH: PLAN: 85-year-old patient with multiple medical problems. Presented with symptoms of chest pressure last night to the ED here at [facility]. Patient had a history of hypertension, hyperlipidemia, [...] just has been treated endovascular at the [facility]. Has right carotid endarterectomy with a history [...] And to consider long-term OAC, based on DDF5SF6-EOFq score. Answer all question related to cardiac catheterization to the family at bedside and grandson patient understand and would like to proceed with cardiac cathtomorrow. Lorraine Mcdowell MD,FAC,[facility] cushion mat maker HPI Consult Data Date of Consult: 05/21/25 HPI Narrative Reason for Consultation: Non-STEMI/atrial flutter with 2-1 AV block. HPI Narrative: LEANA CAMEJO, is a 85 M who presents [facility] Medical History Spigelian hernia Wears hearing aid [...] (From Allergy Other Verified 05/21/25 01:22 Crestor) Bvrkhgh-HPU-QeI Reductase Allergy Other Verified 05/21/25 01:22 Inhibitor (Enqjkte-Xrz-Xyu Reductase Inhibitor) Family History Father Lung cancer [...] Narrative: Patient seen and evaluated at bedside slipman showed normal sinus Cardiac exam S1-S2 is [...] 73.0 H, Lymph % (Auto) 16.2 L, [place] % (Auto) 5.8, Eos % (Auto) 3.6, [...] Clarity Clear, Urine pH 7.0, Ur Specific [place] 1.010, Urine Protein 15 H, Urine Glucose [...] (Auto)73.0 H, Lymph % (Auto) 16.2 L, [place] % (Auto) 5.8, Eos % (Auto) 3.6, [...] Clarity Clear, Urine pH 7.0, Ur Specific [place] 1.010, Urine Protein 15 H, Urine Glucose [...] bilateral basilar atelectatic pulmonary changes. Reading Location: [place] [address] TONY Risk Score for UA/STEMI Assesmment (YES = 1) Risk Stratification Applicable: No 05/21/25 1100 Cosigner Signature (if applicable): CC: Dr. Dallas Reed MD~ Signed [facility]09-01-2025 History and physical note Author Cameron Portillo [facility] Note Date/Time May 21, 2025 5:05am [facility] Medical Records Department [address] [place] [address] H&P Exam - Hospitalist 05/21/25 0336 MR#: [id number] Acct: [id number] Name: LEANA CAMEJO Rep #:[id number] : [...] lumbar laminectomy x 2 who presents to [facility] ER complaining of chest pain. Mr. Camejo [...] 93 ng/L worrisome for superimposed non-ST elevation UT vs acute cardiac stain related to sustained [...] to extend beyond 2 midnights. [facility] Medical History Spigelian hernia Wears hearing aid [...] (From Allergy Other Verified 05/21/25 01:22 Crestor) Alwgbgx-LRB-FlN Reductase Allergy Other Verified 05/21/25 01:22 Inhibitor (Sxkmtgc-Zff-Omd Reductase Inhibitor) Family History Father Lung cancer [...] 73.0 H, Lymph % (Auto) 16.2 L, [place] % (Auto) 5.8, Eos % (Auto) 3.6, [...] bilateral basilar atelectatic pulmonary changes. Reading [facility] Assessment & Plan Assessment/Plan (1) Non-ST elevation UT (NSTEMI): (2) Acute exacerbation of chronic heart [...] 222 ng/L worrisome for superimposed non-ST elevation UT vs acute cardiac stain related to sustained tachyarrhythmia due to #1 - Continue IV heparin begun in the ER. Serialize troponin. Patient denies chest pain at this time. Give acetaminophen as needed for hsuq-kx-oocjkgoa (level 1-5/10) pain or fever. Givemorphine IV [...] 75 minutes. Charges/Coding Visit Charges Inpatient E&M: 96244 Init Hosp L3 05/21/25 0505 <Electronically signed by Cameron Solares DO> Cosigner Signature (if applicable): CC: Dr. Cameron Solares DO; Dr. Dallas Reed MD~ Signed [facility] Work Phone: 1(303) 764-583509-01-2025 Discharge summary Author Veena [facility] Note Date/Time May 21, 2025 4:46am [facility] Medical Records Department [address] [place] [address] Emergency Department Summary 05/21/25 MR#: [id number] Acct: [id number] Name: LEANA CAMEJO Rep #:[id number] : [...] legs. Denies any recent fever or chills. [facility] Medical History Spigelian hernia Wears hearing [...] (From Allergy Other Verified 05/21/25 01:22 Crestor) Cvvjeny-POI-LxM Reductase Allergy Other Verified 05/21/25 01:22 Inhibitor (Yigggkb-Egk-Rwr Reductase Inhibitor) Family History Father Lung cancer [...] 73.0 H Lymph % (Auto) 16.2 L [place] % (Auto) 5.8 Eos % (Auto) 3.6 [...] bilateral basilar atelectatic pulmonary changes. Reading Location: [place] [address] Rhythm Strip Rhythm Strip: Atrial flutter Rate: [...] Management Discussion w/another healthcare provider: Hospitalist and Adhesive Bandage Machine Operator Critical Care Time Critical Care Time: Yes Critical care time (excluding procedures): 30-74 minutes (40), Including time spent: (2 doses of IV metoprolol for arrhythmia), Discussing w/Patient &/or Family/Appliquer, Discussing w/Consultants, Arranging Admission or Transfer andPerforming Direct Patient Care at Bedside Discharge Plan Dx/Rx/DC Orders Clinical Impression: New onset atrial flutter, Non-ST elevation UT (NSTEMI), Acute exacerbation of chronic heart failure Disposition Disposition: Acute Care Hospital [facility] Discharge Date/Time: 05/21/25 04:43 What to do if you have Problems For any increased pain, shortness of breath, bleeding, nausea or vomiting, chestpain, or any unexpected problems, contact your Primary Care Provider. Call [facility] ([phone]) or report to the closest Emergency Room. Call 911 if necessary. 05/21/25 0446 <Electronically signed by Veena Nelson DO> Cosigner Signature (if applicable): CC: Dr. Dallas Reed MD ~ Signed [facility] Work Phone: 1(711) 519-528909-01-2025 History and physical note [facility] Medical Records Department [address] [place] [address] H&P Exam - Hospitalist 05/21/25 0336 MR#: [id number] Acct: [id number] Name: LEANA CAMEJO Rep #:[id number] : [...] lumbar laminectomy x 2 who presents to [facility] ER complaining of chest pain. Mr. Camejo [...] 93 ng/L worrisome for superimposed non-ST elevation UT vs acute cardiac stain related to sustained [...] to extend beyond 2 midnights. [facility] Medical History Spigelian hernia Wears hearing aid [...] (From Allergy Other Verified 05/21/25 01:22 Crestor) Soxrvfu-PDX-SuN Reductase Allergy Other Verified 05/21/25 01:22 Inhibitor (Ewngdxn-Wxa-Rtw Reductase Inhibitor) Family History Father Lung cancer [...] 73.0 H, Lymph % (Auto) 16.2 L, [place] % (Auto) 5.8, Eos % (Auto) 3.6, [...] bilateral basilar atelectatic pulmonary changes. Reading Location[facility] [address] Assessment & Plan Assessment/Plan (1) Non-ST elevation UT (NSTEMI): (2) Acute exacerbation of chronic heart [...] 222 ng/L worrisome for superimposed non-ST elevation UT vs acute cardiac stain related to sustained tachyarrhythmia due to #1 - Continue IV heparin begun in the ER. Serialize troponin. Patient denies chest pain at this time.Give acetaminophen as needed for wufs-jq-rwobhgss (level 1-5/10) pain or fever. Givemorphine IV [...] 75 minutes. Charges/Coding Visit Charges Inpatient E&M: 68346 Init Hosp L3 05/21/25 050 Cosigner Signature (if applicable): CC: Dr. Cameron Solares DO; Dr. Dallas Reed MD~ Signed [facility]09-01-2025 Discharge summary [facility] Medical Records Department [address] [place] [address] Emergency Department Summary 05/21/25 MR#: [id number] Acct: [id number] Name: LEANA CAMEJO Rep #:[id number] : [...] legs. Denies any recent fever or chills. [facility] Medical History Spigelian hernia Wears hearing [...] (From Allergy Other Verified 05/21/25 01:22 Crestor) Iqxpfey-XRN-EoZ Reductase Allergy Other Verified 05/21/25 01:22 Inhibitor (Helxjta-Bju-Czw Reductase Inhibitor) Family History Father Lung cancer [...] 73.0 H Lymph % (Auto) 16.2 L [place] % (Auto) 5.8 Eos % (Auto) 3.6 [...] bilateral basilar atelectatic pulmonary changes. Reading Location: [place] [address] Rhythm Strip Rhythm Strip: Atrial flutter Rate: [...] Management Discussion w/another healthcare provider: Hospitalist and Adhesive Bandage Machine Operator Critical Care Time Critical Care Time: Yes Critical care time (excluding procedures): 30-74 minutes (40), Including time spent: (2 doses of IVmetoprolol for arrhythmia), Discussing w/Patient &/or Family/Appliquer, Discussing w/Consultants, Arranging Admission or Transfer andPerforming Direct Patient Care at Bedside Discharge Plan Dx/Rx/DC Orders Clinical Impression: New onset atrial flutter, Non-ST elevation UT (NSTEMI), Acute exacerbation of chronic heart failure Disposition Disposition: Acute Care Hospital [facility] Discharge Date/Time: 05/21/25 04:43 What to do if you have Problems For any increased pain, shortness of breath, bleeding, nausea or vomiting, chestpain, or any unexpected problems, contact your Primary Care Provider. Call [facility] ([phone]) or report tothe closest Emergency Room. Call 911 if necessary. 05/21/25 0446 Cosigner Signature (if applicable): CC: Dr. Dallas Reed MD ~ Signed [facility]09-01-2025 Radiology Diagnostic study note [facility] Imaging Services [address] [place] [address] Chest 1 View (Portable) MR#: [id number] Acct: [id number] Name: LEANA CAMEJO Rep #: [id number] : 1940 M 85 From: Christina Shaffer MD PCP: Dr. Dallas Reed MD Status: R ER Study:Chest 1 View (Portable) Date of Exam: 05/21/25 Exam# [id number] Ordering Dr: Akila Nelson DO PROCEDURE: CHEST [...] bilateral basilar atelectatic pulmonary changes. Reading [facility] CC: Dr. Veena Nelson, DO; Dr. Dallas Reed MD ~ Shoe Stock Associate: Signed [facility]08[facility]29[facility] History of Present illness Narrative* Saira Darya M, [employer]ROLLS MILL OPERATOR - 05/18/2025 10:09 AM EDT CC: Patient presents with: Fatigue: No energy x 2 months HPI Recording using Open[employer] software for draft documentation of the visit was discussed with the patient/authorized sales representative electric service; all questions welcomed and answered. Patient/authorized sales representative electric service agreed to proceed The patient is an [...] night. 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 Bobo. - Post operative [...] 2 LIMB 04/07/2023 AAA stent graft repair, [facility] LAPS RPR RECURRENT INCISIONAL HERNIA REDUCIBLE 07/29/2015 PAST SURGICAL HISTORY OF 09/09/2015 left total knee arthroplasty PAST SURGICAL HISTORY OF 09/15/2017 micro-disectomy L4-L5, with microcompression bilaterally. PAST SURGICAL HISTORY OF Right 12/16/2018 Repair of complex lateral meniscus tear, Right knee REPAIR UMBILICAL HERNIA [address] Dr. Henry STRESS TEST 09/03/2017 normal ALLERGIES Clonidine, Crestor [Rosuvastatin Calcium], Lipitor [Atorvastatin Calcium], Lisinopril, Nifedipine, and Statins [Phaopnu-Jxh-Dft Reductase Inhibitors] MEDICATIONS losartan (COZAAR) 100 mg [...] (FLONASE) 50 mcg/actuation nasal spray Use 1 Carrie in each nostril daily at bedtime. 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 - Have blood drawn today for a complete blood count (to check for anemia) and a thyroid level documented in this encounterRiverside [facility] Hospital08-12-2025 Radiology Diagnostic study note [facility] Imaging Services [address] [place] [id number] CTA Abd/Pelvis W/WO Contrast MR#: [id number] Acct: [id number] Name: LEANA CAMEJO Rep #: [id number] : 1940 M 85 From: Gordo Alcaraz MD PCP: Dr. Dallas Reed MD Status: R EG CLI Study:CTA Abd/Pelvis W/WO Contrast Date of Ex am: 04/30/25 Exam# [id number] Ordering Dr: Villa Hawk MD PROCEDURE: CTA [...] abdominal aorta. Persistent aneurysmal dilatation of the [place] abdominal aorta with a transverse dimension of 51 mm. The patient is status post endoluminal stent grafting of the [place] abdominal aortic aneurysm with the proximal tip [...] side. Questionable localized contrast retention Reading Location: [facility] CC: Dr. Dustin Hawk MD; Dr. Dallas Reed MD ~ Shoe Stock Associate: Signed [facility]07-15-2025 NoteDayton Osteopathic [facility]07-15-2025 History of Present illness Narrative* Luci Matute RN - 04/03/2025 12:29 PM EDT Images from the original note were not included. [facility] Care Path Telephonic Outreach Patient identified by Name and Date of . Discussed care with patient. H@H number provided, will send via BuzzDoes as well Program Details Chronic Disease Management [...] Complete Comprehensive HTN education provided 04/18/2025 02/19/2025 Ardiane White RN Complete Annual Medicare Wellness visit [...] - Bi-Weekly Outreach (Recurring) Disposition Based on tape keller operator, the following disposition is advised: No action needed Luci Matute RN April 03, 2025 12:29 PM documented in this encounterRiverside [facility] Hospital07-09-2025 Telephone encounter Note * Telephone Encounter [...] by mouth once daily. Venessa Grant RN [facility]07-09-2025 Miscellaneous Notes* Telephone Encounter - Venessa [...] daily. Venessa Grant RN documented in this encounterRiverside Methodist Hospital07-01-2025 NoteDayton [facility]opathic Hospital07-01-2025 History of Present illness Narrative* Adriane White RN - 03/20/2025 10:23 AM EDT Images from the original note were not included. [facility] Care Path Telephonic Outreach Provider Action/FYI Patient identified by Name and Date of . Discussed care with patient. Patient reports he had his cardiac surgery at [facility] on Wednesday and is recovering well, cathleen [...] 20, 2025 10:23 AM documented in this encounterRiverside Methodist Hospital06-30-2025 Telephone encounter Note * Telephone Encounter [...] would like to have this done at [facility] as it is much closer to home. I stated we will fax order to [place] and work to schedule imaging there. Patient expressed understanding and thanked me for calling. [facility] [id number] Miscellaneous Notes* Telephone Encounter - Essence Romero [...] would like to have this done at [facility] as it is much closer to home. I stated we will fax order to [place] and work to schedule imaging there. Patient expressed understanding and thanked me for calling. documented in this [facility]06-27-2025 Hospital Discharge instructions* Discharge Instructions* Fide Miller [...] a call between 8am and 5pm. - [facility] Radiology - [phone] - [facility] Radiology - [phone] - For questions after hours, please call [phone] and ask for the on-call Angiography Radiologist. This handout is intended to provide general educational material to assist you in making informed decisions regarding your medical care. Specific questions about your unique medical conditions shouldbe referred to your primary care physician. * Attachments The following attachments cannot be sent through Care Everywhere. * Arteriogram Discharge Instructions (Maldivian) documented in this [facility]06-27-2025 NoteConscious sedation was administered. Patient tolerated the procedure well. Transfer to IR recovery for observation.[facility]06-27-2025 Nurse Note* Benny Guo RN - 03/16/2025 1:44 PM EDT Conscious sedation was administered. Patient tolerated the procedure well. Transfer to IR recovery for observation. [facility] [id number] Nurse Note* Benny Guo RN - 03/16/2025 [...] Telemetry monitors were placed. 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 Dr. Bobo in to speak with the patient regarding procedure, and consent was obtained. Patient's lab values and allergies were reviewed. Patient was placed supine on exam table, prepped and draped in sterile fashion. Telemetry monitors were placed. [id number] NoteIVR History & Physical Inpatient consult to [...] artery. He follows with Dr. Hawk in [place] for surveillance. CT A/P on 01/18/25 revealed [...] Results Component Value Date (more content not included)...[facility]06-23-2025 Note* Care Coordination - Munira Dickinson RN - 03/12/2025 10:19 AM EDT Spoke to patient. Reviewed instructions for procedure. Please arrive to the Main Entrance ([address] [place] [address]), on ground floor go to registration if you are not pre- registered. If pre-registered, continue on ground floor, follow past [employer] and the [employer], take Elevator [address] to the 2nd [...] or friend. Questions answered. Verbalized understanding. . [facility] [id number] NoteSpoke to patient. Reviewed instructions for procedure. Please arrive to the Main Entrance ([address] [facility]), on ground floor go to registration [...] member or friend. Questions answered. Verbalized understanding. .[facility]06-23-2025 Miscellaneous Notes* Care Coordination - Munira Dickinson RN - 03/12/2025 10:19 AM EDT Spoke to patient. Reviewed instructions for procedure. Please arrive to the Main Entrance ([address] [facility]), on ground floor go to registration [...] answered. Verbalized understanding. . documented in this [facility]06-23-2025 Miscellaneous Notes* Care Coordination - Munira Dickinson RN - 03/12/2025 9:39 AM EDT Left message for patient. Reviewed instructions for procedure. Please arrive to the Main Entrance ([address] [facility]), on ground floor go to registration [...] member or friend. . documented in this [facility]06-23-2025 Note* Care Coordination - Munira Dickinson RN - 03/12/2025 9:39 AM EDT Left message for patient. Reviewed instructions for procedure. Please arrive to the Main Entrance ([address] [facility]), on ground floor go to registration [...] responsible adult family member or friend. . [facility] [id number] NoteLeft message for patient. Reviewed instructions for procedure. Please arrive to the Main Entrance ([address]), on ground floor go to registration [...] a responsible adult family member or friend. .[facility]06-23-2025 NoteDayton Osteopathic Hospital06-23-2025 History of Present illness Narrative* Darya Borden, LACQUER COATER.ROLLS MILL OPERATOR - 03/12/2025 9:03 AM EDT CC: Patient presents with: Follow Up: 6 months HPI Recording using OpenFeint software for draft documentation of the visit was discussed with the patient/authorized sales representative electric service; all questions welcomed and answered. Patient/authorized sales representative electric service agreed to proceed Krystle Camejo is an [...] leaking graft. - [facility]; upcoming procedure by Dr. Bobo at [facility]. Review of Systems See HPI PAST MEDICAL HISTORY Diagnosis Date Abdominal aortic aneurysm (AAA) without rupture 08/26/201708/2017: 3.7 cm Anemia Chronic diastolic CHF (congestive heart failure) ([facility]) 10/20/[address] Montes CKD (chronic kidney disease) stage 3, GFR 30-59 ml/min ([facility]) 02/20/2014 Collagenous colitis 02/04/2023 COVID-19 09/12/2021 DDD (degenerative disc disease), lumbar 08/26/2017 Diarrhea Diverticulosis of colon (without mention of hemorrhage) Hematoma of right iliopsoas muscle 06/21/2019 Internal hemorrhoids without mention of complication Lumbar radiculopathy 08/26/2017 Mixed hyperlipidemia Hyperlipidemia Pancreatic cyst ([facility]) 07/17/2024 S/P carotid endarterectomy right [...] 2 LIMB 04/07/2023 AAA stent graft repair, [facility] LAPS RPR RECURRENT INCISIONAL HERNIA REDUCIBLE 07/29/2015 PAST SURGICAL HISTORY OF 09/09/2015 left total knee arthroplasty PAST SURGICAL HISTORY OF 09/15/2017 micro-disectomy L4-L5, with microcompression bilaterally. PAST SURGICAL HISTORY OF Right 12/16/2018 Repair of complex lateral meniscus tear, Right knee REPAIR UMBILICAL HERNIA 1980 Dr. Henry STRESS TEST 09/03/2017 normal ALLERGIES Clonidine, Crestor [Rosuvastatin Calcium], Lipitor [Atorvastatin Calcium], Lisinopril, Nifedipine, and Statins [Bcqmejk-Vuy-Lxb Reductase Inhibitors] MEDICATIONS carvedilol (COREG) 12.5 mg [...] (FLONASE) 50 mcg/actuation nasal spray Use 1 Carrie in each nostril daily at bedtime. aspirin [...] repair by interventional radiologist Dr. Bobo at [facility] on Wednesday. - This will be [...] plan. Darya Borden APRN.CNP documented in this encounterRiverside Methodist Hospital06-23-2025 Instructions* Patient Instructions* Darya Borden APRN.CNP [...] scheduled aortic repair procedure this Wednesday in [place] with Dr. Bobo. - Continue caring for the superficial skin sore on your bottom--keep it clean and dressed--and let us know if it worsens or shows signs of infection. documented in this encounterRiverside [facility] Hospital06-13-2025 NoteDayton Osteopathic [facility]06-13-2025 History of Present illness Narrative* Adriane White [...] 02, 2025 11:50 AM documented in this encounterRiverside Methodist Hospital06-12-2025 Consult note* Ana Bobo MD - [...] conscious sedation and embolization with coils and [place] via the above-mentioned approach. Risks of bleeding, [...] that they are currently in the state [facility]. If thepatient is a minor, permission [...] No current facility-administered medications for this visit. [facility] [id number] Consult note* Ana Bobo MD - 03/01/2025 [...] conscious sedation and embolization with coils and [place] via the above-mentioned approach. Risks of bleeding, [...] stated that they are currently in the [facility]. If thepatient is a minor, permission [...] medications for this visit. documented in this [facility]06-12-2025 NoteInterventional Radiology Consultation March 01, 2025 Assessment/Plan: [...] conscious sedation and embolization with coils and [place] via the above-mentioned approach. Risks of bleeding, [...] that they are currently in the state [facility]. If the patient is a minor, [...] file. No current facility-administered medications for this visit.[facility] [id number] Evaluation note* Diagnosis Onset Date Resolution Status [...] inactive May 21, 2025 4:22am Non-ST elevation UT (NSTEMI) inactiv e May 21, 2025 4:22am [...] carotid artery inactive June 05, 2025 8:34am [facility] Work Phone: 1(358) 903-664006-09-2025 NoteDayton Osteopathic Hospital06-09-2025 History of Present illness Narrative* Adriane White [...] 26, 2025 2:28 PM documented in this encounterRiverside [facility] Hospital06-02-2025 NoteDayton [facility]opathic Hospital06-02-2025 History of Present illness Narrative* Adriane White [...] 19, 2025 11:36 AM documented in this encounterRiverside [facility] Hospital05-29-2025 Telephone encounter Note * Telephone Encounter [...] Short LPN February 15, 2025 4:50 PM [facility]05-29-[facility] Miscellaneous Notes* Telephone Encounter - Adriana [...] 15, 2025 4:50 PM documented in this encounterRiverside Methodist Hospital05-29-2025 Telephone encounter Note * Telephone Encounter - [place] Monica Mehta - 02/15/2025 4:40 PM EDT [...] is out on the weekend. Monica Ball [facility] February 15, 2025 4:40 PM [facility]05-29-2025 Miscellaneous Notes* Telephone Encounter - [place] Monica Mehta - 02/15/2025 4:40 PM EDT [...] 15, 2025 4:40 PM documented in this encounterRiverside Methodist Hospital05-28-2025 Procedure note [facility] Medical Records Department [address] [place] [address] Operative Report 02/14/25 1613 MR#: [id number] Acct: [id number] Name: LEANA CAMEJO Rep #:[id number] : 1940 85 From: Dustin Hawk MD PCP: Dr. 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 Timeout was performed and conscious sedation ministered Versed and fentanyl. Initial effortswere planned from radial access in an effort to improve the work angle with a superior mesenteric artery. Skin overlying the right radial artery was anesthetized with 1% lidocaine the vessel accessedwith a micropuncture needle wire to then exchanged for a 6 Mosotho radial sheath. Through this verapamil, nitro, and [...] micropuncture sheath exchanged for a short 6 Mosotho sheath. Through a 6 Mosotho sheath Bentson wire was advanced into the [...] was then readvanced and the short 6 Mosotho sheath in flush catheter exchanged for a [...] efforts were warranted so the long 6 Mosotho sheath was exchanged for a short 6 Mosotho sheath and a minx closure device deployed followed by manual pressure. After releasing manual pressure was noted therewas hematoma forming so prolonged manual pressure was held and the patient taken the recovery area with planned discharge home after prolonged bedrest. Surgical Findings: See above Complications Complications: No 02/14/25 1621 Cosigner Signature (if applicable): CC: Dr. Dustin Hawk MD; Dr. Dallas Reed MD~ Signed [facility]05-28-2025 History and physical note Author Dustin Hawk [facility] Note Date/Time February 14, 2025 11:36 am [facility] Medical Records Department [address] [place] [address] History & Physical Exam 02/14/25 1133 MR#: [id number] Acct: [id number] Name: LEANA CAMEJO Rep #:[id number] : 1940 85 From: Dustin Hawk MD PCP: Dr. Dallas Reed MD Status:R [facility] Location: [facility] HPI - General HPI Narrative LEANA CAMEJO, is a 85 M who presents with prior EVAR with type II endoleak, increasing residual sac. Patent MUNDO with robust communication with SMA; 2 lumbararteries. [facility] Medical History Spigelian hernia Wears hearing aid [...] (From Allergy Other Verified 01/12/25 10:29 Crestor) Hmhxeso-AWJ-MzD Reductase Allergy Other Verified 01/12/25 10:29 Inhibitor (Ezsvpln-Syy-Syp Reductase Inhibitor) Family History Father Lung cancer [...] Hawk MD; Dr. Dallas Reed MD~ Signed [facility] Work Phone: 1(788) 876-233305-28-2025 History and physical note [facility] Medical Records Department [address] [place] [address] History & Physical Exam 02/14/25 1133 MR#: [id number] Acct: [id number] Name: LEANA CAMEJO Rep #:[id number] : 1940 85 From: Dustin Hawk MD PCP: Dr. Dallas Reed MD Status:R EG SDC Location: [facility] HPI - General HPI Narrative LEANA CAMEJO, is a 85 M who presents with prior EVAR with type II endoleak, increasing residual sac. Patent MUNDO with robust communication with SMA; 2 lumbararteries. [facility] Medical History Spigelian hernia Wears hearing aid [...] (From Allergy Other Verified 01/12/25 10:29 Crestor) Shlrqpb-GEF-MxP Reductase Allergy Other Verified 01/12/25 10:29 Inhibitor (Awvxzei-Ouo-Vam Reductase Inhibitor) Family History Father Lung cancer [...] Hawk MD; Dr. Dallas Reed MD~ Signed [facility]05-28-2025 NoteWooKindred Healthcare05-28-2025 Evaluation note* Diagnosis Onset Date Resolution Status Admit Date Type II endoleak of aortic graft [facility] on February 14, 2025 9:24am Type II endoleak of aortic graft [facility] February 27, 2025 2:40pm Abdominal aortic 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 April 18, 2025 4:16pm [facility] Work Phone: 1(305) 320-193005-28-2025 Evaluation note* Diagnosis Onset Date Resolution Status [...] 8:04am Shortness of breath resolved 2024 8:04am [facility] Work Phone: 1(637) 618-366205-28-2025 Evaluation note* Diagnosis Onset Date Resolution Status [...] acute May 21, 2025 3:46am Non-ST elevation UT (NSTEMI) acute May 21, 2025 3:46am Abdominal aortic 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 May 21, 2 025 3:46am Chronic renal failure, stage 3 (moderate) chronic May 21, 2 025 3:46am 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 May 21 025 3:46am [facility] Work Phone: 1(480) 329-959505-28-2025 Evaluation note* Diagnosis Onset Date Resolution Status [...] acute May 21, 2025 4:22am Non-ST elevation UT (NSTEMI) acute May 21, 2025 4:22am Stenosis [...] 4:22am Shortness of breath resolved 2024 4:22am [facility] Work Phone: 1(297) 685-745705-28-2025 Evaluation note* Diagnosis Onset Date Resolution Status [...] inactive May 21, 2025 4:22am Non-ST elevation UT (NSTEMI) inactiv e May 21, 2025 4:22am [...] carotid artery inactive June 05, 2025 8:34am [facility] Work Phone: [phone]) [phone] NoteDayton Osteopathic Hospital05-15-2025 History of Present illness Narrative* Adriane White RN - 02/01/2025 1:48 PM EDT Images from the original note were not included. [facility] Care Path Telephonic Outreach Provider Action/FYI Patient [...] 01, 2025 1:48 PM documented in this encounterRiverside Methodist Hospital04-30-2025 NoteDayton [facility]opathic Hospital04-30-2025 History of Present illness Narrative* Adriane [...] you homeless or living in a senior care (including now)?: No Transportation Needs In the [...] has the electric, gas, oil, or water inMEDIA Corporation threatened to shut off services in your [...] 17, 2025 2:17 PM documented in this encounterRiverside Methodist Hospital04-25-2025 Discharge summary Author Hernandez King [facility] Note Date/Time January 12, 2025 1:[address] [facility] [address] [place] [address] Emergency Department Summary 01/12/25 MR#: [id number] Acct: [id number] Name: LEAAN CAMEJO Rep #:[id number] : 1940 85 [...] of aortic graft which was evaluated [facility] November of this year. He is [...] was reviewed.) Recent Illness/Hospitalization: Yes (Transfer to [facility] for evaluation of endoleak of aort) [facility] Medical History Spigelian hernia Wears hearing [...] (From Allergy Other Verified 01/12/25 10:29 Crestor) Ylcnymr-SPM-BzD Reductase Allergy Other Verified 01/12/25 10:29 Inhibitor (Firvnpt-Fqn-Wva Reductase Inhibitor) Family History Father Lung cancer [...] were changed when he was at the [facility]. He and his both commented [place] General [...] % (Auto) 63.2 Lymph % (Auto) 22.3 [place] % (Auto) 9.8 Eos % (Auto) 3.5 [...] of the examination is unchanged. Reading Location: [facility] Since the endoleak is unchanged and [...] anything return to the emergency Print Language: Maldivian Disposition Disposition: Home, Self Care What to do if you have Problems For any increased pain, shortness of breath, bleeding, nausea or vomiting, chestpain, or any unexpected problems, contact your Primary Care Provider. Call [facility] ([phone]) or report to the closest Emergency Room. Call 911 if necessary. 01/12/25 1321 <Electronically signed by Hernandez King MD> Cosigner Signature (if applicable): CC: Dr. Dallas Reed MD ~ Signed [facility] Work Phone: 1(234) 384-356604-25-2025 Discharge summary [facility] Medical Records Department [address] [place] [address] Emergency Department Summary 01/12/25 MR#: [id number] Acct: [id number] Name: LEANA CAMEJO Rep #:[id number] : [...] of aortic graft which was evaluated at [facility] November of this year. He is [...] was reviewed.) Recent Illness/Hospitalization: Yes (Transfer to [facility] for evaluation of endoleak of aort) [facility] Medical History Spigelian hernia Wears hearing [...] (From Allergy Other Verified 01/12/25 10:29 Crestor) Kytfyty-NLW-DuJ Reductase Allergy Other Verified 01/12/25 10:29 Inhibitor (Gsuleqa-Swj-Koz Reductase Inhibitor) Family History Father Lung cancer [...] were changed when he was at the [facility]. He and his both commented [place]. General Appearance [...] % (Auto) 63.2 Lymph % (Auto) 22.3 [place] % (Auto) 9.8 Eos % (Auto) 3.5 [...] of the examination is unchanged. Reading Location: [facility] Since the endoleak is unchanged and [...] anything return to the emergency Print Language: Maldivian Disposition Disposition: Home, Self Care What to do if you have Problems For any increased pain, shortness of breath, bleeding, nausea or vomiting, chestpain, or any unexpected problems, contact your Primary Care Provider. Call [facility] ([phone]) or report tothe closest Emergency Room. Call 911 if necessary. 01/12/25 1321 Cosigner Signature (if applicable): CC: Dr. Dallas Reed MD ~ Signed [facility]04-25-2025 Radiology Diagnostic study note [facility] Imaging Services [address] [place] [address] Abdomen/Pelvis W IV Cont ONLY MR#: [id number] Acct: [id number] Name: LEANA CAMEJO Rep #: [id number] : 1940 M 85 From: Gordo Alcaraz MD PCP: Dr. Dallas Reed MD Status: R EG ER Study:Abdomen/Pelvis W IV Cont ONLY Date of E xam: 01/12/25 Exam# [id number] Ordering Dr: Rhett King MD PROCEDURE: ABDOMEN/PELVIS [...] Liver: Diffuse fatty infiltration. Gallbladder: Unremarkable. Spleen: Jlwibuja-pn-bobrmo degree of splenomegaly. This is unchanged. Pancreas: [...] of the examination is unchanged. Reading Location: [place] [address] CC: Dr. Hernandez King MD; Dr. Dallas Reed MD ~ Shoe Stock Associate: Signed [facility]04-08-2025 NoteDayton Osteopathic Hospital04-08-2025 History of Present illness Narrative* Adriane White RN - 12/26/2024 11:21 AM EDT Transitional Care Management (TCM) Follow-Up Note PCP Update / Actionable Items N/A - No specialty updates needed Patient Source: In-Network Discharge Follow-up outreach: TCM enrolled patient Outreach Summary: Patient reports some mild sob and palpitations last night, he does have a call out to his provider from [facility] and will discuss with him, as well [...] alreadyhas an appointment scheduled EDUCATION: N/A Adriane Wihte RN December 26, 2024 11:27 AM documented in this encounterR[facility]04-07-2025 Evaluation note* Diagnosis Onset Date Resolution Status Admit Date Type II endoleak of aortic graft [facility] on December 25, 2024 3:30pm Type II endoleak of aortic graft [facility] on February 14, 2025 9:24am [facility] Work Phone: 1(568) 683-445704-07-2025 Evaluation note* Diagnosis Onset Date Resolution Status Admit Date Type II endoleak of aortic graft [facility] on December 25, 2024 3:30pm Type II endoleak of aortic graft [facility] on February 14, 2025 9:24am Type II endoleak of aortic graft [facility] on February 27, 2025 2:40pm [facility] Work Phone: 1(491) 750-856604-04-2025 [facility]Day[facility]04-04-[facility]25 History of Present illness Narrative* Ramon [...] Patient will report no falls. (Goal Met) [place] in home exercise program. (Goal Met) Patient [...] 944 Ramon Lee PT documented in this encounterRiverside Methodist Hospital04-01-2025 NoteDay[facility]04-01-2025 History of Present illness Narrative* Adriane White [...] 19, 2024 10:29 AM documented in this encounterRiverside Methodist Hospital04-01-2025 NoteDay[facility]04-01-2025 History of Present illness Narrative* Ramon [...] toward set goals. PLAN FOR NEXT VISIT: [place]. SUBJECTIVE: No new falls. Left side anterior [...] 957 Ramon Lee PT documented in this encounterRiverside Methodist Hospital03-28-2025 NoteDay[facility]03-28-2025 History of Present illness Narrative* Ramon [...] 954 Ramon Yvonne, PT documented in this encounterRiverside [facility] Hospital03-25-2025 NoteDay[facility]03-25-2025 History of Present illness Narrative* Ramon [...] Bilateral knee collapse (worse on R) during buq-xq-pyegid without use of hands and with increased [...] 956 Ramon Lee PT documented in this encounterRiverside [facility] Hospital03-24-2025 Telephone encounter Note * Telephone Encounter [...] Fagan RPh December 11, 2024 2:24 PM [facility]03-24-2025 Miscellaneous Notes* Telephone Encounter - Emily [...] 11, 2024 2:24 PM documented in this encounterRiverside [facility] Hospital03-24-2025 NoteDay[facility]03-24-2025 History of Present illness Narrative* Adriane [...] further. Routed to RX 4C Medication Question ([id number]) and indicate in Pharmacy Box Patient Questions [...] 11, 2024 11:55 AM documented in this encounterRiverside Methodist Hospital03-24-2025 Telephone encounter Note * Telephone Encounter [...] Hernandez LPN December 11, 2024 9:14 AM [facility]03-24-2025 Miscellaneous Notes* Telephone Encounter - Theodora [...] failure. He is asking for a new fdc script to be sent to the [facility] in [place]. documented in this encounterRiverside Methodist Hospital03-24-2025 Telephone encounter Note * Telephone Encounter - Vicky Naravez - 12/11/2024 8:16 AM EDT Patient was placed back on hydralazine 100 mg after hospital visit and alternative medication failure. He is asking for a new fdc script to be sent to the [facility] in [place]. [facility]03-21-2025 Instructions* Patient Instructions* Dallas Reed MD - 12/08/2024 12:[address] HAWK FOR FOLLOW UP OF ENDOLEAK OF YOUR ANEURYSM. documented in this encounterRiverside Methodist Hospital03-21-2025 NoteDayton [facility]03-21-2025 History of Present illness Narrative* Dallas Reed MD - 12/08/2024 11:49 AM EDT This note was created using Sevenceriter. Subjective Patient presents with: Hospital F/U Transitional [...] referred to the ER, then transferred to [facility]. Patient was admitted to F CICU [...] Rhinitis Abdominal Aortic Aneurysm (Aaa) Without Rupture ([facility]) Overweight (Bmi 25.0-29.9) Status Post Endovascular Aneurysm [...] 2 LIMB 04/07/2023 [facility] RECURRENT INCISIONAL HERNIA REDUCIBLE 07/29/2015 PAST [...] for follow up. He is establish with [facility] and did not need a [...] medications Dallas Reed MD documented in this encounterRiverside Methodist Hospital03-21-2025 NoteDay[facility]03-21-2025 History of Present illness Narrative* Ramon [...] 954 Ramon Lee PT documented in this encounterRiverside Methodist Hospital03-19-2025 History of Present illness Narrative* Ramon Lee, PT - 12/06/2024 9:54 AM EDT Program_ID:[id number] Access Code: [email or web address] URL: [email or web address] Date: 12-06-2024 Prepared By: Ramon Lee Program [...] with recent ED visit and [facility] to [facility] in [facility]. From Chart - admitted on 11/28 after starting to have LLQ pain starting Friday 11/24. [facility] and they ordered a CT that showed an enlarged abdominal aorta comapred toprior. Patient was recommended to present to hospital. Patient went to [facility] and there hisSBP was 140. Patient [...] 0956 Ramon Lee PT documented in this encounterRiverside Methodist Hospital03-19-2025 NoteDayton [facility]03-17-2025 NoteHNO ID: [id number] Author: DALLAS REED MD Service: ? Author Type: Physician Type: Progress Notes Filed: 12/05/2024 12:54 Note Text: Medication list updated. Continue current medications per patient report. Follow up this Wednesday as scheduled.[facility]03-17-[facility] History of Present illness Narrative* Dallas Reed MD - 12/04/2024 2:11 PM EDT Medication list updated. Continue current medications per patient report. Follow up this Wednesday as scheduled. * Yessenia Price [facility] - 12/04/2024 7:13 AM EDT [...] these changes if you agree or have customer support coordinator contact pt to advise what [...] oz) Patient was sent a message via KangaDo including the link to the [facility] Heart Failure education video: Yes Initial contact with patient post discharge, spoke to patient, and verified that any applicable caregiver is active in patient's medical care. Patient identified by name and . Summary: -Pt discharged from [facility] on 12/01/24. -Medication review done Full [...] pain starting Friday 11/24. Patient went to [facility] urgent care on Wednesday and they ordered a CT that showed an enlarged abdominal aorta comapred to prior. Patient was recommended to present to hospital. Patient went to [facility] and there hisSBP was 140. Patient [...] (FLONASE) 50 mcg/actuation nasal spray Use 1 Carrie in each nostril daily at bedtime. Discontinued: [...] Pt is not taking Removed Preferred pharmacy: [facility] [address] [place] [address] [id number] [phone] [address] [facility] [phone] [place] [id number] Estimated Creatinine Clearance: 33.5 mL/min (A) (based on SCr of 1.59 mg/dL (H)). Estimated Glomerular Filtration Rate (mL/min/1.73m ) Date Value 12/01/2024 43 (L) eGFR- (no units) Date Value 07/02/2021 57 Additional follow up: Next 5 Appointments Date and Time Provider Department Dept Phone 12/06/2024 9:15 AM Ramon Lee PT [facility] [phone] 12/08/2024 9:15 AM Ramon Lee PT [facility] [phone] 12/08/2024 11:40 AM Dallas Reed INTM [facility] [phone] 12/12/2024 9:15 AM Ramon Lee PT [facility] [phone] 12/15/2024 9:15 AM Ramon Lee PT [facility] [phone] Interventions Made: Adherence counseling Pharmacist Recommendations Made Potential drug interaction/side effects/adverse effects detected Care Coordination: Escalated to specialist provider Time spent on patient: 45-60 minutes Yessenia Price RPh December 04, 2024 7:14 AM documented in this encounterRiverside Methodist Hospital03-17-2025 NoteDay[facility]03-17-2025 History of Present illness Narrative* Adriane White RN - 12/04/2024 9:40 AM EDT Transition Care Management (TCM) Initial Outreach PCP Update / Actionable Items HRTIC TCM Home Visit Referral Source of Stratification: TCM HUB Hospital Admission Status: Discharged Readmission Risk Score: 11 Patient's zip code: [address] Is zip code within program service area: [...] follow up with patient. Patient discharged from [facility] Discharge date: 12/01/24 Admitted for: Type 2 endoleak of aortic graft Readmission Risk: 11 Value-Based Contract: ACO Contact: Contact made with patient: Yes Hi, my name is Adriane White RN and I am calling from the [facility] on behalf of your Primary Care [...] I will send your request to a echo vascular technologist who will contact and assist you with [...] 04, 2024 9:43 AM documented in this encounterRiverside Methodist Hospital03-17-2025 NoteDay[facility]03-15-2025 Telephone encounter Note* Telephone Encounter - [...] with plan. Dustin Lombardi APRN.CNP 7:06 PM [facility] Work Phone: [phone]) 384-251403-15-2025 Miscellaneous Notes* Telephone Encounter - Dustin Lombardi [...] Lombardi APRN.CNP 7:06 PM documented in this encounterRiverside Methodist Hospital03-14-2025 NoteDay[facility]03-14-2025 NoteDay[facility]03-13-2025 NoteDay[facility]03-11-2025 NoteDay[facility]03-11-2025 History of Present illness Narrative* Tali Maldonado APRN.ROLLS MILL OPERATOR - 11/28/2024 10:08 PM EDT Images from the original note were not included. Critical Care Transport Note Patient Name: Leana Camejo Service Date: 11/28/24 Referring Physician: Isaac Referring Facility: [facility] Accepting Physician: Gabrielle Accepting Facility: [facility] SUBJECTIVE/CHIEF COMPLAINT: LLQ abdominal pain REASON [...] stenosis, anemia and HPL. He presented to [facility] today for evaluation of acute onset abdominal pain. Per rep ort he has had LLQ abdominal pain since Wednesday (11/24/24). In the ED he was noted to be mildly hypertensive, no N/V, no peripheral numbness/tingling. CT noted interval increased size of abdominal aortic aneurysm sac compared to prior exam, interval increased blush within the [place] mountain aortic sac, evidence of type 2 endo leak. He was given morphine and zofran in the ED. At this time, the physician managing the patient requested transfer to the [facility] for tertiary and/or quaternary services unavailable at the referring facility. The physician managing the patient requested the [facility] Critical [facility] Transport Team transport and treat the patient for the purpose of tertiary care, evaluation, and management of his acute AAA with endoleak condition(s). Air medical transport was requested to reduce the rme-of-lbxkthzw time, 27 minutes by air vs. approximately [...] Abdominal aortic aneurysm (AAA) without rupture ([facility]) 08/26/201708/2017: 3.7 cm Anemia Chronic diastolic CHF (congestive heart failure) ([facility]) 10/20/[address] Montes CKD (chronic kidney disease) stage 3, GFR 30-59 ml/min ([facility]) 02/20/2014 Collagenous colitis 02/04/2023 COVID-19 [...] Calcium], Lipitor [Atorvastatin Calcium], Lisinopril, and Statins [Rrdqlbh-Zox-Kiy Reductase Inhibitors] SOCIAL HISTORY: Social History Tobacco [...] Interval increase in contrast blush within the [place] aortic sac. These findings consistent with progressive [...] HR < 70 - Expedite transport to [facility] for further workup and care The transport was completed without significant incident or change in the patient's status. The patient was transported to the the [facility] by [employer]otor (Helicopter) for tertiary and/or quaternary evaluation and management of his Critical Surgical condition(s). Upon arrival to the receiving facility, a qhvc-cr-omin report was given to bedside nursing staff [id number] and bedside medical team . Patient care [...] endoleak and the Cardiovascular impairment, Respiratory impairment, INTERACTIVE ART DIRECTOR impairment, Shock, Cardiac Arrest, and Severe metabolic abnormality which the patient had and/or had a high probability of suddenly developing. SIGNATURE: Tali Maldonado APRN.CNP Acute Care Nurse Practitioner [facility] Critical [facility] Team documented in this encounterRiverside Methodist Hospital03-11-2025 Discharge summary [facility] Medical Records Department [address] [place] [address] Emergency Department Summary 11/28/24 MR#: [id number] Acct: [id number] Name: LEANA CAMEJO Rep #:[id number] : [...] (From Allergy Other Verified 11/28/24 17:53 Crestor) Jrtylwq-YYZ-ScC Reductase Allergy Other Verified 11/28/24 17:53 Inhibitor (Rqxbyxn-Cch-Ilx Reductase Inhibitor) Family History Father Lung cancer [...] pain and [facility] yesterday showed a AAA [...] this or another cause. I spoke to [facility] auto launch 2 of their surgeons [...] 71.3 H Lymph % (Auto) 17.0 L [place] % (Auto) 9.1 Eos % (Auto) 1.6 [...] Sl. Cloudy Urine pH 6.5 Ur Specific [place] 1.010 Urine Protein 15 H Urine Glucose [...] Interval increase in contrast blush within the [place] aortic sac. These finding is consistent with [...] use of iterative reconstruction technique). Reading Location: [id number] Rhythm Strip Rhythm Strip: Sinus Rhythm Rate: 87 Ectopy: None EKG Initial EKG: Attestation: I personally reviewed and interpreted this EKG as follows: Interpretation: Sinus Rhythm and No Acute Injury Pattern Comments: Normal sinus rhythm rate 87 no acute signs of UT or ischemia. Discharge Plan Triage Chief Complaint: [...] MD [Primary Care Provider] - Print Language: Maldivian Disposition Disposition: Acute Care Hospital What to do if you have Problems For any increased pain, shortness of breath, bleeding, nausea or vomiting, chestpain, or any unexpected problems, contact your Primary Care Provider. Call [facility] ([phone]) or report tothe closest Emergency Room. Call 911 if necessary. 11/28/240 Cosigner Signature (if applicable): CC: Dr. Dallas Reed MD ~ Signed [facility]03-11-2025 Radiology Diagnostic study note [facility] Imaging Services [address] [place] [address] Abdomen/Pelvis W IV Cont ONLY MR#: [id number] Acct: [id number] Name: LEANA CAMEJO Rep #: [id number] : 1940 M 84 From: Raegan Gupta MD PCP: Dr. Dallas Reed MD Status: P RE ER Study:Abdomen/Pelvis W IV Cont ONLY Date of E xam: 11/28/24 Exam# [id number] Ordering Dr: Mira Gray MD PROCEDURE: ABDOMEN/PELVIS [...] abnormal enhancement within the sac of the [place] mountain aorta which are consistent with endoleak arising [...] Interval increase in contrast blush within the [place] aortic sac. These finding is consistent with [...] use of iterative reconstruction technique). Reading Location: [facility] CC: Dr. Nate Gray MD; Dr. Dallas Reed MD ~ Shoe Stock Associate: Signed [facility]03-11-2025 Telephone encounter Note* Telephone Encounter - Sheeba Castellano MA - 11/28/2024 5:22 PM EDT Nurse called back line and I spoke to another provider Susan Gates NP since pcp/INSERTER were out. ROSSI Gates advised patient needs to go to ER due to pain and change in aortic size. Did call patient who advised will go to [facility] ER and aware of results from radiologist below. Called [facility] ER and spoke to Dr. Gray and faxed CT/office note/Radiologist report to [phone]. Sheeba Castellano MA [facility]03-11-2025 Miscellaneous Notes* Telephone Encounter - Sheeba Castellano MA - 11/28/2024 5:22 PM EDT Nurse called back line and I spoke to another provider Susan Gates NP since pcp/INSERTER were out. ROSSI Gates advised patient needs to go to ER due to pain and change in aortic size. Did call patient who advised will go to [facility] ER and aware of results from radiologist below. Called [facility] ER and spoke to Dr. Gray and faxed CT/office note/Radiologist report to [phone]. Sheeba Castellano MA * Telephone Encounter - Venessa Grant RN - 11/28/2024 5:08 PM EDT Received call from Dr. Ga, [facility] Radiologist regarding pt's CT ABD/PEL results stating per result note, there has been interval enlargement of the white mountain lumen consistent with a hemodynamically significant leak'. Dr. Ga states he is unsure if this is cause for patient's pain but he is asking provider to address this and contact patient. Venessa Grant RN documented in this encounterRiverside Methodist Hospital03-11-2025 Telephone encounter Note * Telephone Encounter - Venessa Grant RN - 11/28/2024 5:08 PM EDT Received call from Dr. Ga, [facility] Radiologist regarding pt's CT ABD/PEL results stating per result note, there has been interval enlargement of the white mountain lumen consistent with a hemodynamically significant leak'. Dr. aG states he is unsure if this is cause for patient's pain but he is asking provider to address this and contact patient. Venessa Grant RN [facility]03-11-2025 Discharge summary Author Nate Gray [facility] Note Date/Time November 28, 2024 7:2 0pm [facility] Medical Records Department [address] [place] [address] Emergency Department Summary 11/28/24 MR#: [id number] Acct: [id number] Name: LEANA CAMEJO Rep #:[id number] : [...] for 5 days and was seen by [facility] care physician's office yesterday. They did [...] (From Allergy Other Verified 11/28/24 17:53 Crestor) Lqfsbol-OLP-CxA Reductase Allergy Other Verified 11/28/24 17:53 Inhibitor (Uicnknz-Qam-Okn Reductase Inhibitor) Family History Father Lung cancer [...] pain and outpatient CT [facility] yesterday showed a AAA [...] this or another cause. I spoke to [facility] auto launch 2 of their surgeons [...] 71.3 H Lymph % (Auto) 17.0 L [place] % (Auto) 9.1 Eos % (Auto) 1.6 [...] Sl. Cloudy Urine pH 6.5 Ur Specific [place] 1.010 Urine Protein 15 H Urine Glucose [...] Interval increase in contrast blush within the [place] aortic sac. These finding is consistent with [...] use of iterative reconstruction technique). Reading Location: [id number] Rhythm Strip Rhythm Strip: Sinus Rhythm Rate: 87 Ectopy: None EKG Initial EKG: Attestation: I personally reviewed and interpreted this EKG as follows: Interpretation: Sinus Rhythm and No Acute Injury Pattern Comments: Normal sinus rhythm rate 87 no acute signs of UT or ischemia. Discharge Plan Triage Chief Complaint: [...] MD [Primary Care Provider] - Print Language: Maldivian Disposition Disposition: Acute Care Hospital What to do if you have Problems For any increased pain, shortness of breath, bleeding, nausea or vomiting, chestpain, or any unexpected problems, contact your Primary Care Provider. Call [facility] ([phone]) or report to the closest Emergency Room. Call 911 if necessary. 11/28/241919 <Electronically signed by Nate Gray MD> Cosigner Signature (if applicable): CC: Dr. Dallas Reed MD ~ Signed [facility] Work Phone: 1(621) 710-934803-10-2025 Instructions* Patient Instructions* Darya Borden APRN.SHAWNA - 11/27/2024 11:27 AM EDT Go to ER or call 911 if you develop severe abdominal pain, vomiting that won't stop, high fever, rigid/hard abdomen. documented in this encounterRiverside Methodist Hospital03-10-2025 NoteDay[facility]03-10-2025 NoteDay[facility]03-10-2025 History of Present illness Narrative* Darya [...] Abdominal aortic aneurysm (AAA) without rupture ([facility]) 08/26/201708/2017: 3.7 cm Anemia Chronic diastolic CHF (congestive heart failure) ([facility]) 10/20/[address] Montes CKD (chronic kidney disease) stage 3, GFR 30-59 ml/min ([facility]) 02/20/2014 Collagenous colitis 02/04/2023 COVID-19 [...] 2 LIMB 04/07/2023 AAA stent graft repair, [facility] LAPAROSCOPY SURG RPR INITIAL INGUINAL HERNIA [...] Calcium], Lipitor [Atorvastatin Calcium], Lisinopril, and Statins [Wylpaft-Dnc-Iql Reductase Inhibitors] MEDICATIONS hydrALAZINE (APRESOLINE) 100 mg tablet Take 1 tablet by mouth three times a day. levothyroxine (SYNTHROID) 25 mcg tablet Take 1 tablet by mouth daily before breakfast. bempedoic acid (NEXLETOL) 180 mg tablet Take 1 tablet (180 mg) by mouth once daily. fluticasone (FLONASE) 50 mcg/actuation nasal spray Use 1 Carrie in each nostril daily at bedtime. aspirin [...] Level: 4 - Moderate documented in this encounterMolly Ville [address]-10-2025 NoteDayton [facility]03-10-2025 History of Present illness Narrative* Gavin Rivero APRN.ROLLS MILL OPERATOR - 11/27/2024 9:46 AM EDT Nontoxic-appearing 84-year-old male presents urgent care chief complaint abdominal pain. Duration of symptoms 2 days. Associated symptoms left-sided abdominal pain. States aching-like discomfort. OTCmedications none. States this started after eating at [employer] Wednesday night. Presents today for evaluation. States pain is persistent. No vomiting. No change in bowel or bladder habits. No fevers. Appointment today at 11 AM with PCP Gavin Rivero APRN.ROLLS MILL OPERATOR documented in this encounterRiverside [facility] Hospital03-07-2025 [facility]03-07-[facility] History of Present illness Narrative* Ramon Lee, [...] 822 Ramon Lee PT documented in this encounterRiverside Methodist Hospital03-04-2025 History of Present illness Narrative* Ramon Lee, PT - 11/21/2024 11:26 AM EST Program_ID:[id number] Access Code: [email or web address] URL: [email or web address] Date: 11-21-2024 Prepared By: Ramon Lee Program [...] established 11/21/24 Patient will report no falls. [place] in home exercise program. Patient will Improve [...] Planned: 8 Planned Treatment Interventions: Therapeutic exercise (00394), Neuromuscular re- education (06353), Manual therapy (12594), Therapeutic activities (23250), Self- alf management (87183), Patient/Family/Caregiver Education PLAN FOR NEXT VISIT: Challenge [...] report. Subsequent Abrasion/contusion on head. Went to [facility] care three days later andthen [...] Knee Scope (15-20 years). 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 Montes CKD (chronic kidney disease) stage 3, GFR 30-59 ml/min ([facility]) 02/20/2014 Collagenous colitis 02/04/2023 COVID-19 [...] : 1045 Session Stop Time : 1130 Ramno Lee PT documented in this encounterRiverside Methodist Hospital03-04-2025 NoteDay[facility]02-20-2025 NoteDay[facility]02-20-2025 History of Present illness Narrative* Dallas Reed MD - 11/09/2024 2:20 PM EST This note was created using [employer]. Subjective Leana Camejo is a 84 year [...] disease) stage 3, GFR 30-59 ml/min ([facility]) Chronic Diastolic Chf (Congestive Heart Failure) ([facility]) Allergic Rhinitis Abdominal Aortic Aneurysm (Aaa) Without Rupture ([facility]) Overweight (Bmi 25.0-29.9) S/P carotid [...] (FLONASE) 50 mcg/actuation nasal spray Use 1 Carrie in each nostril daily at bedtime. aspirin [...] THERAPY Dallas Reed MD documented in this encounterRiverside [facility]02-18-2025 NoteDayton [facility]02-18-2025 History of Present illness Narrative* Elbert Hawk APRN.[facility] - 11/07/2024 11:57 AM EST Subjective [...] Abdominal aortic aneurysm (AAA) without rupture ([facility]) 08/26/201708/2017: 3.7 cm Anemia Chronic diastolic CHF (congestive heart failure) (HCC) 10/20/[address] Montes CKD (chronic kidney disease) stage 3, GFR 30-59 ml/min ([facility]) 02/20/2014 Collagenous colitis 02/04/2023 COVID-19 [...] 2 LIMB 04/07/2023 AAA stent graft repair, [facility] LAPAROSCOPY SURG RPR INITIAL INGUINAL HERNIA [...] Calcium], Lipitor [Atorvastatin Calcium], Lisinopril, and Statins [Gabgdno-Ktq-Vdp Reductase Inhibitors] MEDICATIONS hydrALAZINE (APRESOLINE) 100 mg tablet Take 1 tablet by mouth three times a day. levothyroxine (SYNTHROID) 25 mcg tablet Take 1 tablet by mouth daily before breakfast. bempedoic acid (NEXLETOL) 180 mg tablet Take 1 tablet (180 mg) by mouth once daily. fluticasone (FLONASE) 50 mcg/actuation nasal spray Use 1 Carrie in each nostril daily at bedtime. aspirin [...] MUPIROCIN 2 % TOPICAL OINTMENT Elbert Hawk APRN.ROLLS MILL OPERATOR documented in this encounterRiverside Methodist Hospital01-13-2025 Telephone encounter Note * Telephone Encounter [...] Please advise. Thank you. Cassandra Couch LPN. [facility]01-13-2025 Miscellaneous Notes* Telephone Encounter - Cassandra [...] you. Cassandra Couch LPN. 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 Would like script sent to Laureen Asif. [facility]12-20-2024 Miscellaneous Notes* Telephone Encounter - Ibeth [...] thyroid labs in 3 months Darya Borden APRN.ROLLS MILL OPERATOR documented in this encounterRiverside Methodist Hospital12-20-2024 Telephone encounter Note * Telephone Encounter - Ibeth Manriquez LPN - 09/08/2024 9:29 AM EST ----- Message from Darya Borden APRN.SHAWNA sent at 09/08/2024 6:34 AM EST ----- Please let the patient know his lab results are consistent with hypothyroidism. Start treatment with levothyroxine 25 mcg daily and recheck thyroid labs in 3 months Darya Borden APRN.ROLLS MILL OPERATOR [facility]12-19-2024 Instructions* Patient Instructions* Darya Borden APRN.CNP [...] review all the medicines you take, even lcsj-oiq-amzmklw medicines. As you get older, the way [...] have certain medical conditions. documented in this encounterRiverside Methodist Hospital12-19-2024 NoteDayton [facility]opathic Hospital12-19-2024 History of Present illness Narrative* Darya [...] General (Internal Medicine) Fide Goff RN as Equine Internship (Internal Medicine) Darya Borden, DUSTIN.ROLLS MILL OPERATOR as Metal Hardener (Internal Medicine) Cardiology- Dr. Felipe Band Lining Bander- Dr. Dominguez Vascular surgeon-Dr. Bruce Medical/Family history [...] diet Darya Borden APRN.SHAWNA documented in this encounterRiverside Methodist Hospital12-09-2024 NoteDayton [facility]opathic Hospital12-09-2024 History of Present illness Narrative* Fide Goff RN - 08/28/2024 11:06 AM EST CDM Telephonic Outreach Provider Action/FYI CDM: CHF, CKD 2nd Attempt Lvm, Instructed to contact PCP/Provider for symptom changes, concerns or needs. Contacted for: Routine Telephonic Outreach Contact made with patient: No, left message. Fide Goff RN August 28, 2024 11:09 AM documented in this encounterRiverside Methodist Hospital12-05-2024 NoteDayton [facility]12-05-2024 History of Present illness Narrative* Fied Goff RN - 08/24/2024 1:20 PM EST CDM Telephonic Outreach Provider Action/FYI CDM: CHF, CKD 1st Attempt Lvm, Instructed to contact PCP/Provider for symptom changes, concerns or needs. Contacted for: Routine Telephonic Outreach Contact made with patient: No, left message. Fide Goff RN August 24, 2024 1:21 PM documented in this encounterRiverside Methodist Hospital12-04-2024 [facility]12-04-2024 [facility]11-14-2024 Telephone encounter Note* Telephone Encounter - Maribell Huston LPN - 08/03/2024 8:16 AM EST Form faxed back to number on it. [facility]11-14-2024 Miscellaneous Notes* Telephone Encounter - Maribell [...] forms. Maria E to re-fax forms to [phone]. Ranjana Soto RN documented in this encounterRiverside Methodist Hospital11-13-2024 Telephone encounter Note * Telephone Encounter - Dallas Reed MD - 08/02/2024 5:27 PM EST Form completed, signed. [facility]11-12-2024 Telephone encounter Note* Telephone Encounter - Maribell Huston LPN - 08/01/2024 10:36 AM EST Surgical clearance form rec'd and to pcp to review. [facility]11-12-2024 Telephone encounter Note* Telephone Encounter - Ranjana Soto RN - 08/01/2024 9:34 AM EST Maria E with Dr. Bruce calls to ask if we received surgical clearance forms for patient on 07/26/2024. Noted an OV note from Dr. Bruce but no forms. Maria E to re-fax forms to [phone]. Ranjana Soot RN [facility]11-04-2024 NoteDayton [facility]11-04-2024 History of Present illness Narrative* Fide Goff RN - 07/24/2024 9:57 AM EST CDM Telephonic Outreach Provider Action/FYI 07/11/24 Pt noted seen at [facility] ED for Left Abd Hernia pain 07/24/24 Pt denies nausea, or vomiting, denies Abd pain Voiding and BM's without difficulty, eating and hydrating well denies fever or chills No medications were ordered Pt has 07/26/24 Appt with Surgeon at [facility] Pt had recent bilateral shoulder pain, completed bilateral injections 07/17/24 by [facility] Instructed to contact PCP/Provider for symptom [...] to talk about today? Yes Based on tape keller operator, the following disposition is advised: No symptoms or symptoms present, not severe. Routed to: No Action Needed PAVEL Education Provided this Outreach: No Fide Goff RN July 24, 2024 10:01 AM documented in this encounterRiverside Methodist Hospital11-02-2024 NoteDayton [facility]11-02-2024 History of Present illness Narrative* Fide Goff RN - 07/22/2024 4:04 PM EDT CDM Telephonic Outreach Provider Action/FYI CDM: CHF, CKD 1st Attempt Contacted for: Routine Telephonic Outreach Contact made with patient: No, unable to leave message. Will reattempt call Fide Goff RN July 22, 2024 4:08 PM documented in this encounterRiverside Methodist Hospital10-28-2024 Instructions* Patient Instructions* Dallas Reed MD - 07/17/2024 1:40 PM EDT FASTING BLOOD WORK NEXT MONTH BEFORE APPOINTMENT. documented in this encounterRiverside Methodist Hospital10-28-2024 NoteDayton Osteopathic Hospital10-28-2024 History of Present illness Narrative* Dallas Reed MD - 07/17/2024 1:24 PM EDT This note was created using [employer]. Subjective Leana Camejo is a 84 year [...] disorder. Dallas Reed MD documented in this encounterRiverside Methodist Hospital10-22-2024 NoteDayton Osteopathic Hospital10-22-2024 History of Present illness Narrative* Gavin Rivero APRN.[facility] - 07/11/2024 4:01 PM EDT Nontoxic-appearing male presents urgent care chief complaint abdominal pain and distention. Duration of symptom 1 week. Associated symptoms listed above. Presents today for evaluation. Discussed following up with PCP versus ED. Patient states will be seen emergency room today for further evaluationcare. Will be sent [facility]. will transport patient. Gavin Rivero APRN.ROLLS MILL OPERATOR documented in this encounterRiverside Methodist Hospital10-04-2024 NoteDayton [facility]opathic Hospital10-04-2024 History of Present illness Narrative* Fide [...] care with patient Outcomes: Patient switched from [facility] to telephone outreach Are you experiencing any new or worsening symptoms you need to talk about today? No Based on tape keller operator, the following disposition is advised: No symptoms [...] 22, 2024 9:47 AM documented in this encounterRiverside Methodist Hospital10-03-2024 NoteDayton [facility] Hospital09-18-2024 Instructions* Patient Instructions* Dallas Reed MD - 06/07/2024 9:12 AM EDT FASTING BLOOD WORK JULY. documented in this encounterRiverside Methodist Hospital09-18-2024 History of Present illness Narrative* Dallas Reed MD - 06/07/2024 8:34 AM EDT This note was created using [employer]. Subjective Patient presents with: [facility] F/U Leana Camejo is a 84 [...] Rhinitis Abdominal Aortic Aneurysm (Aaa) Without Rupture ([facility]) Overweight (Bmi 25.0-29.9) S/P carotid [...] Abs Lymph 1.00 - 4.00 k/uL 1.04 [place]% % 10.0 Abs [place] <0.87 k/uL 0.63 Eosin% % 1.9 Abs Eosin <0.46 k/uL 0.12 Baso% % 0.6 Abs Baso <0.11 k/uL 0.04 Immature Gran % % 0.5 IMMATURE GRANS (ABS) <0.10 k/uL 0.03 NRBC /100 WBC 0.0 Absolute nRBC <0.01 k/uL <0.01 DTYPE Auto Color Yellow Yellow Clarity Clear Clear Glucose, Urine Negative Negative Bilirubin, Urine Negative Negative Ketones, Urine Negative Negative Specific [place], Ur 1.005 - 1.030 1.016 Hemoglobin/Blood,Ur Negative [...] BASIC Dallas Reed MD documented in this encounterRiverside Methodist Hospital09-03-2024 History of Present illness Narrative* Aubrie [...] Abdominal aortic aneurysm (AAA) without rupture ([facility]) Comment: 08/2017: 3.7 cm No date: Anemia 10/20/2016: Chronic diastolic CHF (congestive heart failure) ([facility]) Comment: Sees Dr. Montes 02/20/2014: CKD (chronic kidney disease) stage 3, GFR 30-59 ml/min ([facility]) 02/04/2023: Collagenous colitis 09/12/2021: COVID-19 [...] Calcium], Lipitor [Atorvastatin Calcium], Lisinopril, and Statins [Oxvcyst-Fxf-Wqs Reductase Inhibitors] MEDICATIONS Current Outpatient Medications Medication [...] to ED. Patient will drive himself to [facility] ED. Again, patient refuses against medical advice. The patient indicates understanding of these issues and agrees with the plan. Reviewed red flags and when to seek care sooner. Aubrie Gomez PA-C documented in this encounterRiverside Methodist Hospital09-03-2024 Telephone encounter Note * Telephone Encounter [...] a provider today 05-23-24. Perlita Tang LPN [facility]09-03-2024 Miscellaneous Notes* Telephone Encounter - Perlita [...] 05-23-24. Perlita Tang LPN documented in this encounterRiverside Methodist Hospital07-19-2024 Telephone encounter Note * Telephone Encounter - Maribell Huston LPN - 04/07/2024 1:53 PM EDT Fax rec'd from Dr. Davis's office notifying pcp that pt cancelled 04/24/[address] Davis.Fax to pcp then to medical records for scanning. [facility]07-19-2024 Miscellaneous Notes* Telephone Encounter - Maribell Huston LPN - 04/07/2024 1:53 PM EDT Fax rec'd from Dr. Davis's office notifying pcp that pt cancelled 04/24/[address] Davis.Fax to pcp then to medical records for scanning. documented in this encounterRiverside Methodist Hospital07-03-2024 Telephone encounter Note * Telephone Encounter [...] Shirley Mehta March 22, 2024 1:17 PM [facility]07-03-2024 Miscellaneous Notes* Telephone Encounter - Shirley [...] 22, 2024 1:17 PM documented in this encounterRiverside Methodist Hospital06-22-2024 History of Present illness Narrative* Prema Agee APRN.CNP - 03/11/2024 11:35 AM EDT This note was created using [employer]. Subjective Leana Camejo is a 84 year [...] Level: 3 - Low documented in this encounterRiverside Methodist Hospital06-18-2024 History of Present illness Narrative* Fide [...] pounds in a week? Yes Based on tape keller operator, the following disposition is advised: No symptoms or symptoms present, not severe. Routed to: No Action Needed PAVEL Education Provided this Outreach: No Fide Goff RN March 07, 2024 4:54 PM documented in this encounterRiverside Methodist Hospital06-17-2024 Telephone encounter Note * Telephone Encounter [...] Cathleen Mehta March 06, 2024 9:00 AM [facility]06-17-2024 Miscellaneous Notes* Telephone Encounter - Cathleen [...] 06, 2024 9:00 AM documented in this encounterRiverside Methodist Hospital06-17-2024 Telephone encounter Note * Telephone Encounter - Adriana Short LPN - 03/06/2024 8:56 AM EDT Patient calling asking to have referral faxed to Dr Flaherty office at [phone]. Patient said his shoulder pain is bothering him quite a lot. Printed office notes, insurance card copies, face sheet, xray reports, consult and faxed as requested. Patient said he has appt in April. [facility]06-17-2024 Miscellaneous Notes* Telephone Encounter - Adriana Short LPN - 03/06/2024 8:56 AM EDT Patient calling asking to have referral faxed to Dr Flaherty office at [phone]. Patient said his shoulder pain is bothering him quite a lot. Printed office notes, insurance card copies, face sheet, xray reports, consult and faxed as requested. Patient said he has appt in April. documented in this encounterRiverside Methodist Hospital06-11-2024 Telephone encounter Note * Telephone Encounter - Shahana Delgado LPN - 02/29/2024 2:53 PM EDT Pt calls to request shoulder xray results and insurance cards be faxed to [facility] in [facility]. Faxed to: [phone] as requested. Shahana Delgado LPN [facility]06-11-2024 Miscellaneous Notes* Telephone Encounter - Shahana Delgado LPN - 02/29/2024 2:53 PM EDT Pt calls to request shoulder xray results and insurance cards be faxed to [facility] in [facility]. Faxed to: [phone] as requested. Shahana Delgado LPN documented in this encounterRiverside Methodist Hospital05-23-2024 Telephone encounter Note * Telephone Encounter [...] Please advise. Thank you. Damir Summers MA. [facility]05-23-2024 Miscellaneous Notes* Telephone Encounter - Damir [...] Thank you. Lorena Kimbrough. documented in this encounterRiverside Methodist Hospital05-23-2024 Telephone encounter Note * Telephone Encounter [...] found Please advise. Thank you. Lorena Kimbrough. [facility]05-22-2024 History of Present illness Narrative* Ayla Carrasquillo PA-C - 02/09/2024 5:09 PM EDT This note was created using [employer]. Subjective Leana Camejo is a 84 year old male. HPI Presents with a chief complaint of bilateral shoulder pain over the past 2 weeks. He states has been keeping him up at night. He states when he lays on 1 shoulder or the other it is very painful. He has tried some Tylenol hxph-jqy-olllorc. No injury to his shoulders. He states [...] Chronic diastolic CHF (congestive heart failure) ([facility]) 10/20/[address] Montes CKD (chronic kidney disease) stage 3, GFR 30-59 ml/min ([facility]) 02/20/2014 Collagenous colitis 02/04/2023 COVID-19 [...] 2 LIMB 04/07/2023 AAA stent graft repair, [facility] LAPAROSCOPY SURG RPR INITIAL INGUINAL HERNIA [...] LEFT Ayla Carrasquillo PA-C documented in this encounterRiverside Methodist Hospital05-22-2024 History of Present illness Narrative* Kae [...] PATIENT PRESENTS WITH AN IMPLANTABLE OR ATTACHED TIPPING MACHINE OPERATOR AUTOMATIC: No RADIOLOGY DEPARTMENT: General X-ray: Exam(s) Completed: Upper Extremity X- Ray(s): Shoulder, AP / TRUE AP bilateral Scapular Y view PERIPHERAL IV DATA: Not applicable SIGNED BY: RT Warner(R) February 09, 2024 4:32 PM documented in this encounterRiverside Methodist Hospital04-29-2024 History of Present illness Narrative* Shaun Kowalski MD - 01/17/2024 8:30 AM EDT Images from the original note were not included. Heart, Vascular and Thoracic [place] DEPARTMENT OF VASCULAR SURGERY OUTPATIENT VISIT DATE [...] Abdominal aortic aneurysm (AAA) without rupture ([facility]) 08/26/201708/2017: 3.7 cm Anemia Chronic diastolic CHF (congestive heart failure) ([facility]) 10/20/[address] Montes CKD (chronic kidney disease) stage 3, GFR 30-59 ml/min ([facility]) 02/20/2014 Collagenous colitis 02/04/2023 COVID-19 [...] 2 LIMB 04/07/2023 AAA stent graft repair, [facility] LAPAROSCOPY SURG RPR INITIAL INGUINAL HERNIA [...] 2024 TIME: 8:30 AM documented in this encounterRiverside Methodist Hospital04-22-2024 Instructions* Patient Instructions* Darya Borden APRN.CNP - 01/10/2024 9:12 AM EDT Fluticasone (Flonase) nasal spray documented in this encounterRiverside Methodist Hospital04-22-2024 History of Present illness Narrative* Darya [...] of aortagraft per latest scan. Referred to [facility] vascular in [place]. Review of Systems See HPI PAST MEDICAL HISTORY Diagnosis Date Abdominal aortic aneurysm (AAA) without rupture ([facility]) 08/26/201708/2017: 3.7 cm Anemia Chronic diastolic CHF (congestive heart failure) ([facility]) 10/20/[address] Montes CKD (chronic kidney disease) stage 3, GFR 30-59 ml/min ([facility]) 02/20/2014 Collagenous colitis 02/04/2023 COVID-19 [...] 2 LIMB 04/07/2023 AAA stent graft repair, [facility] LAPAROSCOPY SURG RPR INITIAL INGUINAL HERNIA [...] Calcium], Lipitor [Atorvastatin Calcium], Lisinopril, and Statins [Zvezbaf-Kif-Xws Reductase Inhibitors] MEDICATIONS ascorbic acid, vitamin C, [...] 441.4, ICD10: I71.40 Follow-up with vascular at [facility] as scheduled Prescription instructions reviewed with patient as applicable. Potential red flag symptoms discussed with the patient. Reviewed appropriate action plan to take if red flag symptoms occur. Patient agreeable to treatment plan. Darya Borden APRN.ROLLS MILL OPERATOR documented in this encounterRiverside Methodist Hospital04-22-2024 Nurse Note* Damir Summers MA - 01/10/2024 8:59 AM EDT 01/10/2024: Home BP Cuff Validated. Home BP: 127/58 Office BP: 112/72 [facility]04-22-20[facility] Nurse Note* Damir Summers MA - 01/10/2024 8:59 AM EDT 01/10/2024: Home BP Cuff Validated. Home BP: 127/58 Office BP: 112/72 documented in this encounterRiverside Methodist Hospital04-12-2024 Miscellaneous Notes* Telephone Encounter - Yulisa Minaya - 12/31/2023 9:26 AM EDT Referring Physician - Omid Perez MD Requesting Physician - Dr. Shaun Kowalski Diagnosis: Aneurysm of Iliac Artery Images have been pushed electronically and records. documented in this encounterRiverside Methodist Hospital03-10-2024 History of Present illness Narrative* Fide [...] goal align with programs offered at the [facility]? ADL's updated: No Are you experiencing [...] pounds in a week? No Based on tape keller operator, the following disposition is advised: No symptoms or symptoms present, not severe. Routed to: No Action Needed PAVEL Education Provided this Outreach: No Fide Goff RN November 28, 2023 3:58 PM documented in this encounterRiverside Methodist Hospital11-21-2023 History of Present illness Narrative* Darya Singh APRN.[facility] - 08/10/2023 8:17 AM EST Leana [...] General (Internal Medicine) Fide Goff, RN as Equine Internship (Internal Medicine) Outside specialists seen: Cardiology- Dr. Felipe Band Lining Bander- Dr. Dominguez Vascular- Dr. Perez GI- Dr. [...] provided Darya Singh APRN.CNP documented in this encounterRiverside Methodist Hospital11-21-2023 Instructions* Patient Instructions* Darya Singh APRN.CNP [...] review all the medicines you take, even arzl-ajr-pqkuycp medicines. As you get older, the way [...] have certain medical conditions. documented in this encounterRiverside Methodist Hospital10-06-2023 Miscellaneous Notes* Telephone Encounter - Damir [...] pharmacy. No need to notify patient. Cathleen Tang Pss documented in this encounterRiverside Methodist Hospital08-31-2023 History of Present illness Narrative* Fide [...] to talk about today? No Based on tape keller operator, the following disposition is advised: No symptoms or symptoms present, not severe. Routed to: No Action Needed PAVEL Education Provided this Outreach: Yes Fide Goff RN May 20, 2023 4:27 PM documented in this encounterRiverside Methodist Hospital07-28-2023 History of Present illness Narrative* Dallas [...] disease) stage 3, GFR 30-59 ml/min ([facility]) Chronic Diastolic Chf (Congestive Heart Failure) ([facility]) Allergic Rhinitis Abdominal Aortic Aneurysm (Aaa) Without Rupture ([facility]) Overweight (Bmi 25.0-29.9) S/P carotid [...] area twice daily. APPLY TO AFFECTED AREA kf-8-veh-trj-[id number]-ZO-B-0-pct 500-1,000-500 mg-unit-mcg cap Take by mouth. DESENEX [...] Take 1 capsule by mouth once daily. [place] Q Plus glucosamine/chondr rich A sod (OSTEO [...] Perez. Dallas Reed MD documented in this encounterRiverside Methodist Hospital07-20-2023 Consult note Author Marianne Baudilio [facility] April 08, 2023 2:25pm Note Date/Time April 08, 2023 2:23 pm [facility] Medical Records Department [address] [place] [address] Counseling Note - Pharmacy 04/08/23 1421 MR#: [id number] Acct: [id number] Name: LEANA CAMEJO Rep #:[id number] : 1940 83 From: Marianne Astudillo PCP: Dr. Dallas Reed MD Status:A DM IN Y Location: [place] [address] Pharmacy [place] Med Reconciliation Pharmacy Service has performed discharge medication reconciliation for this patient. No new medications at time of discharge review. Medications reviewed are from previously reported home medications. The patient's discharge medication list was reviewed for discrepancies and discrepancies were resolved. Medications at Discharge Home Medications [id number]-[id number]-O5-arqdmjxjrkr 500 mg-1,000 unit-500 mcg cap 1 ea [...] 9 mg PO DAILY BOWELS 02/23/23 04/08/23 9666 <Electronically signed by Marianne Astudillo > Date _ Marianne Arrington Signature (if applicable): Date CC: ~ Signed [facility] Work Phone: 1(764) 192-188807-20-2023 Discharge summary Author Omid Perez [facility] April 08, 2023 6:30am Note Date/Time April 07, 2023 6:29 am [facility] Medical Records Department [address] [place] [address] Instructions for Home/Discharge Instructions 04/07/23626 MR#: [id number] Acct: [id number] Name: LEANA CAMEJO Rep #:[id number] : [...] With: Omid Perez MD When: Please call [phone] for follow-up office appointment approximately 10days Test [...] PO QODAY PRN (Reason: heart health) Held of-2-dni-qhq-Z8-N77Y38-XK-G-3-xkg 1 EACH capsule 1 ea PO DAILY Hold Instructions: Resume on 04/21/23. Patient Comments: supplement Other Ambulatory Orders: CTA Abd/Pelvis W/WO Contrast (Routine) Timeframe: [id number] Facility: [facility] - Location: Cat Scan, [facility] Ordered By: Benita PEREZ Referrals / Follow Up: Dallas Reed MD [Primary Care Provider] - 04/08/23629<Electronically signed by Omid Perez MD>Omid Perez MD CC: Dr. Dieter Christianson MD; Dr. Dallas Reed MD ~ Signed [facility] Work Phone: 1(395) 692-638307-20-2023 Progress note Author Omid Perez [facility] April 08, 2023 6:29am Note Date/Time April 08, 2023 6:30 am [facility] Medical Records Department [address] [place] [address] Progress Note - Surgery 04/08/23627 MR#: [id number] Acct: [id number] Name: KERRIELEANA DALTON Rep #:[id number] : 1940 83 From: Omid Perez MD PCP: Dr. Dallas Reed MD Status:A DM IN Location: [facility] [id number] Subjective Subjective Is doing well. No [...] 71.5 H, Lymph % (Auto) 15.5 L, [place] % (Auto) 9.7, Eos % (Auto) 1.6, [...] Cosigner Signature (if applicable): CC: ~ Signed [facility] Work Phone: 1(463) 773-535107-19-2023 Progress note Author Omid Perez [facility] April 07, 2023 3:21pm Note Date/Time April 07, 2023 3:21 pm [facility] Medical Records Department [address] [place] [address] Progress Note - Surgery 04/07/23 1519 MR#: [id number] Acct: [id number] Name: LEANA CAMEJO Rep #:[id number] : 1940 83 From: Omid Perez MD PCP: Dr. Dallas Reed MD Status:A DM IN Location: [place] [id number]- [id number] Subjective Subjective Notes some back pain. [...] Cosigner Signature (if applicable): CC: ~ Signed [facility] Work Phone: 1(553) 717-228307-19-2023 Procedure [facility] 04-07-2023 History and physical note Author Omid Perez [facility] April 07, 2023 5:46am Note Date/Time April 07, 2023 5:46 am [facility] Medical Records Department [address] [place] [address] History & Physical Exam 04/07/23 0545 MR#: [id number] Acct: [id number] Name: LEANA CAMEJO Rep #:[id number] : 1940 83 From: Omid Perez MD PCP: Dr. Dallas Reed MD Status:A DM IN Location: [place] [address] History and Physical Date of Admission: 04/07/23 Trade Show Manager Required: No Is patient in pain?: No Allergies lisinopril Allergy (Intermediate, Verified 03/05/23 07:35) Rashatorvastatin calcium [From Lipitor] Allergy (Verified 03/05/23 07:35) Otherclonidine Allergy (Verified 03/05/23 07:35) Unknownrosuvastatin calcium [From Crestor] Allergy (Verified 03/05/23 07:35) EbdduPkphbjv-HXM-AzL Reductase Inhibitor [Tpyzjpr-Tmc-Hqa Reductase Inhibitor] Allergy (Verified 03/05/23 07:35) Other Medications kepma-8-hhn-oco-G1-[id number]-PM-K0-zkaxjmgdwmn 500 mg-1,000 unit-500 mcg cap 1 ea [...] calcium [From Crestor] Allergy (Verified 02/23/23 09:38) MkcdwRnmkkre-PWA-DoY Reductase Inhibitor [Tpcgeis-Xqn-Qry Reductase Inhibitor] Allergy (Verified 02/23/23 09:38) Other Medications uwkej-4-cnu-hii-S9-[id number]-SA-H2-kdmhyjjyswq 500 mg-1,000 unit-500 mcg cap 1 ea [...] Aspirin Regimen) 81 mg PO QDAY PRN [facility] 05/13/22 [History Confirmed 05/13/22] budesonide 3 [...] He states he was worked up at [facility] in [facility] had a colonoscopy and then suggest [...] Aorta IVC Iliac vasculature or bypass grafts [address]. The exam was diagnostic. Exam performed in [...] cm in diameter ? ? Ordering Physician: Omdi Perez MD Referring Physician: Dallas Reed Performed [...] and welldeveloped Nutritional Appearance: average body habitus [facility] Head: normal to inspection Eyes [...] Perez MD; Dr. Dallas Reed MD~ Signed [facility] Work Phone: 1(571) 892-644707-19-2023 Procedure [facility] 03-04-2023 History of Present illness Narrative* Cassandra Couch LPN - 03/04/2023 9:57 AM EDT Manual Readin/70 Pulse: 64 BP Fab average: 160/76 Pulse: 62 Repeat BP Check: 166/80 Pulse: 61 160/67 57 156/82 70 150/70 61 * Dallas Reed MD - 03/04/2023 9:49 AM EDT This note was created using [employer]. Subjective Leana Camejo is a 83 year [...] (HCC) Chronic Diastolic Chf (Congestive Heart Failure) ([facility]) Allergic Rhinitis Abdominal Aortic Aneurysm (Aaa) Without Rupture ([facility]) Overweight (Bmi 25.0-29.9) S/P carotid [...] area twice daily. APPLY TO AFFECTED AREA ip-7-qdr-qti-S1-[id number]-FO-E-9-lhk 500-1,000-500 mg-unit-mcg cap Take by mouth. DESENEX [...] Take 1 capsule by mouth once daily. [place] Q Plus glucosamine/chondr rich A sod (OSTEO [...] CTA. Dallas Reed MD documented in this encounterR[facility]05-15-2023 Instructions* Patient Instructions* Aubrie Gomez PA-C - 02/01/2023 11:00 AM EDT Flonase or saline nasal spray. If you use Flonase and have any bloody noses, stop the flonase. documented in this encounterRiverside [facility] Hospital05-15-2023 History of Present illness Narrative* Aubrie Gomez PA-C - 02/01/2023 10:54 AM EDT 02/01/2023 Patient presents with: Ear Problem: ear pressure, hard of hearing x 1 week SUBJECTIVE: This is a 83 year old that is here today for Complaint(s) of ear pressure and fullness REESE. Recently flew home from [place]. Having trouble hearing. Not wearing hearing aids. Also having sinus pressure and congestion x 2 weeks. Denies chest pain, SOB, wheezing, ear pain, sore throat. Patient admits to using Sinex regularly the last week +. PAST MEDICAL HISTORY Diagnosis Date Abdominal aortic aneurysm (AAA) without rupture ([facility]) 08/26/201708/2017: 3.7 cm Anemia Chronic diastolic CHF (congestive heart failure) ([facility]) 10/20/[address] Montes CKD (chronic kidney disease) stage 3, GFR 30-59 ml/min ([facility]) 02/20/2014 COVID-19 09/12/2021 DDD (degenerative disc disease), lumbar 08/26/2017 Diarrhea Diverticulosis of colon (without mention of hemorrhage) Hematoma of right iliopsoas muscle 06/21/2019 Internal hemorrhoids without mention of complication Lumbar radiculopathy 08/26/2017 Mixed hyperlipidemia Hyperlipidemia S/P carotid endarterectomy right 01/20/2021 Unspecified essential hypertension Essential hypertension ALLERGIES Clonidine, Crestor [Rosuvastatin Calcium], Lipitor [Atorvastatin Calcium], Lisinopril, and Statins [Stpfxru-Des-Ooh Reductase Inhibitors] MEDICATIONS Current Outpatient Medications Medication Sig budesonide, enteric coated (ENTOCORT EC) 3 mg 24 hr capsule Take 3 capsules by mouth once daily. triamcinolone acetonide (KENALOG) 0.1 % cream apply to AFFECTED AREAS OF THE UPPER EXTREMITIES TWICE DAILY FOR ... (REFER TO PRESCRIPTION NOTES). pimecrolimus (ELIDEL) 1 % cream Apply to affected area twice daily. APPLY TO AFFECTED AREA de-7-ntk-qpj-C6-[id number]-UD-E-1-fjt 500-1,000-500 mg-unit-mcg cap Take by mouth. DESENEX [...] Take 1 capsule by mouth once daily. [place] Q Plus glucosamine/chondr rich A sod (OSTEO [...] sooner. Aubrie Gomez PA-C documented in this encounterRiverside [facility] Hospital05-02-2023 Miscellaneous Notes* Telephone Encounter - Lorena Stubbs Ma - 01/19/2023 3:49 PM EDT Approved, pharmacy notified Submitted budesonide auth to insurance, pending response Lorena Stubbs CMA documented in this encounterRiverside [facility] Hospital04-28-2023 Nurse Note* Cathleen Rodriguez RN - 01/15/2023 12:[address] Rodriguez at bedside to speak to patient. Verbalizes understanding. OK to d/c. [facility] Note* Cathleen Rodriguez RN - 01/15/2023 12:[address] Rodriguez at bedside to speak to patient. Verbalizes understanding. OK to d/c. documented in this encounterRiverside [facility] Hospital04-28-2023 History and physical note * Lisa [...] MAC Additional Comments: None Lisa Rodriguez MD [facility] Work Phone: [phone]) 447-386904-28-2023 History and physical note* Lisa Rodriguez MD [...] None Lisa Rodriguez MD documented in this encounterRiverside [facility] Hospital04-20-2023 Instructions* Patient Instructions* Lisa Rodriguez MD [...] If you do not have a responsible bottom hoop driver (family member or friend) with you [...] your exam. 2 08/2019 documented in this encounterRiverside [facility] Hospital04-20-2023 History of Present illness Narrative* Lisa [...] nausea, vomiting, loss of appetite, hematemesis, bleeding KS, unexplained weight loss, tenesmus, nocturnal diarrhea. His stool calprotectin was elevated. C diff was negative. He had screening colonoscopy in May 2020 which was unremarkable. PAST MEDICAL HISTORY Diagnosis Date Abdominal aortic aneurysm (AAA) without rupture ([facility]) 08/26/201708/2017: 3.7 cm Anemia Chronic diastolic CHF (congestive heart failure) ([facility]) 10/20/[address] Montes CKD (chronic kidney disease) stage 3, GFR 30-59 ml/min ([facility]) 02/20/2014 COVID-19 09/12/2021 DDD (degenerative [...] area twice daily. APPLY TO AFFECTED AREA et-0-vod-oxg-S2-[id number]-LE-L-5-lsy 500-1,000-500 mg-unit-mcg cap Take by mouth. DESENEX [...] Take 1 capsule by mouth once daily. [place] Q Plus glucosamine/chondr rich A sod (OSTEO [...] 01/07/23 TIME: 4:06 PM documented in this encounterRiverside [facility] Hospital04-12-2023 Instructions* Patient Instructions* Dallas Reed MD - 12/30/2022 12:27 PM EDT AVOID DAIRY. documented in this encounterRiverside [facility] Hospital04-12-2023 History of Present illness Narrative* Dallas Reed MD - 12/30/2022 12:15 PM EDT This note was created using [employer]. Subjective Leana Camejo is a 82 year old male. He started having diarrhea 12/19, with loose to watery, non bloody stools 2-4 times per day. He did not feel ill. His was not ill. There was no unusual food intake, antibiotic use, or travel. He went to [facility] last week and was advised [...] disease) stage 3, GFR 30-59 ml/min ([facility]) Chronic Diastolic Chf (Congestive Heart Failure) ([facility]) Allergic Rhinitis Abdominal Aortic Aneurysm (Aaa) Without Rupture ([facility]) Overweight (Bmi 25.0-29.9) S/P carotid [...] Take 1 capsule by mouth once daily. [place] Q Plus glucosamine/chondr rich A sod (OSTEO [...] Perez. Dallas Reed MD documented in this encounterRiverside [facility] Hospital10-14-2022 History of Present illness Narrative* Gavin Rivero, DUSTIN.ROLLS MILL OPERATOR - 07/03/2022 5:05 PM EDT Subjective [...] Chronic diastolic CHF (congestive heart failure) ([facility]) 10/20/[address] Montes CKD (chronic kidney disease) stage 3, GFR 30-59 ml/min ([facility]) 02/20/2014 COVID-19 09/12/2021 DDD (degenerative [...] Calcium], Lipitor [Atorvastatin Calcium], Lisinopril, and Statins [Nhnfaqo-Cgc-Zhs Reductase Inhibitors] MEDICATIONS losartan (COZAAR) 100 mg [...] Take 81 mg by mouth once daily. [place]-3 1,050 mg, Fish Oil, 1,050-1,200 mg cap Take by mouth twice daily. COMPOUNDED PRESCRIPTION Take 1 capsule by mouth once daily. 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 Patient was educated [...] of care. This note was generated using [employer] software. It may contain errors in wording, punctuation, or spelling. Gavin Rivero APRN.ROLLS MILL OPERATOR documented in this encounterRiverside [facility] Hospital09-06-2022 Miscellaneous Notes* Telephone Encounter - Maribell Huston LPN - 05/26/2022 11:47 AM EDT Pt has refills of carvedilol. The others would be needed. * Telephone Encounter - Vicky Garcia Pss - 05/26/2022 8:59 AM EDT Pharmacy [facility] Patient has been identified by [...] kg (163 lb) Not applicable Please advise. 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 Pharmacy is the same [facility] as the other med. colestipol (COLESTID) 1 gram tablet (Discontinued) 180 tablet 1 02/14/2021 07/09/2021 Sig: Take 1 tablet by mouth twice daily. For cholesterol. * Telephone Encounter - Vicky Garcia Pss - 03/11/2022 9:17 AM EDT Pharmacy verified [facility] Patient has been identified by [...] Vicky Garcia Pss 1 documented in this encounterRiverside [facility] Hospital06-01-2022 Miscellaneous Notes* Telephone Encounter - Chrissy Worrell - 02/18/2022 8:24 AM EDT Patient given results and verbalized understanding of instructions given. Chrissy Worrell * Telephone Encounter - Elsie Boudreaux APRN.ROLLS MILL OPERATOR - 02/18/2022 7:38 AM EDT Please inform [...] Dr. Reed as well. documented in this encounterRiverside [facility] Hospital05-31-2022 History of Present illness Narrative* Nona Maloney APRN.ROLLS MILL OPERATOR - 02/17/2022 11:48 AM EDT CC: Patient [...] Abdominal aortic aneurysm (AAA) without rupture ([facility]) 08/26/201708/2017: 3.7 cm Anemia Chronic diastolic CHF (congestive heart failure) ([facility]) 10/20/[address] Montes CKD (chronic kidney disease) stage 3, GFR 30-59 ml/min ([facility]) 02/20/2014 COVID-19 09/12/2021 DDD (degenerative [...] Calcium], Lipitor [Atorvastatin Calcium], Lisinopril, and Statins [Dlzumfy-Geu-Okg Reductase Inhibitors] MEDICATIONS carvedilol (COREG) 12.5 mg [...] Take 81 mg by mouth once daily. [place]-3 1,050 mg, Fish Oil, 1,050-1,200 mg cap Take by mouth twice daily. COMPOUNDED PRESCRIPTION Take 1 capsule by mouth once daily. [place] Q Plus glucosamine/chondr rich A sod (OSTEO [...] plan. Nona Maloney APRN.SHAWNA documented in this encounterRiverside [facility] Hospital05-24-2022 History of Present illness Narrative* Janelle [...] PCP. Janelle Sanchez LPN documented in this encounterRiverside [facility] Hospital05-23-2022 History of Present illness Narrative* Denver Elizalde RN - 02/09/2022 12:59 PM EDT in[employer]ight CDM Engagement Provider Action/FYI: Call to Pt left a message to verify CHF/ CKD symptom status and needs provided. Insight Questionnaire location reminder provided. Contact Made with Patient: No, second attempt, left message. Blaise Camejo. This is Fide Goff RN your Casework Specialist from the [facility]. I am calling to check in with you concerning the MyChart questionnaire you have been receiving from me. I will call you again next week and am looking forward to speaking with you. (Care Coordinatorenters next week's date in next patient outreach) Fide Goff RN February 09, 2022 12:59 PM documented in this encounterRiverside [facility] Hospital05-20-2022 History of Present illness Narrative* Denver Elizalde RN - 02/06/2022 3:38 PM EDT [employer] CDM Engagement Provider Action/FYI: Call to Pt left message to verify CHF/ CKD or other symptom status and needs. Contact Made with Patient: No, first attempt, left message. Blaise Camejo. This is Fide Goff RN your Casework Specialist from the [facility]. I am calling to check in with you concerning the MyChart questionnaire you have been receiving from me. I will call you again tomorrow and am looking forward to speaking with you. (Casework Specialist enters next day in next patient outreach) Fide Goff RN February 06, 2022 3:38 PM documented in this encounterRiverside [facility] Hospital04-26-2022 History of Present illness Narrative* Dallas Reed MD - 01/13/2022 8:56 AM EDT This note was created using [employer]. Subjective Leana Camejo is a 82 year old male. He recovered from Covid in August. He went to [facility] in [facility] for IV vitamin infusions. He just [...] (HCC) Chronic Diastolic Chf (Congestive Heart Failure) ([facility]) Allergic Rhinitis Abdominal Aortic Aneurysm (Aaa) Without Rupture ([facility]) Overweight (Bmi 25.0-29.9) S/P carotid [...] tablet by mouth twice daily with meals. [place]-3 1,050 mg, Fish Oil, 1,050-1,200 mg cap Take by mouth twice daily. COMPOUNDED PRESCRIPTION Take 1 capsule by mouth once daily. [place] Q Plus glucosamine/chondr rich A sod (OSTEO [...] BASIC Dallas Reed MD documented in this encounterRiverside [facility] Hospital04-26-2022 Evaluation note* Diagnosis Stage 3a chronic kidney disease (HCC)- Primary Chronic diastolic CHF (congestive heart failure) (HCC) Chronic diastolic heart failure Abdominal aortic aneurysm (AAA) without rupture (HCC) BENIGN HYPERTENSION Essential hypertension, benign Other hyperlipidemia documented in this encounter [facility]03-[facility] History of Present illness Narrative* Denver Elizalde RN - 12/08/2021 5:06 PM EDT [employer] CDM Engagement Provider Action/FYI: Spk with Pt who reports no CHF / CKD symptoms or needs. Contact Made with Patient: Yes Patient identified by name and . Discussed care with patient Blaise turner name is Fide Goff RN your Casework Specialist from [facility]. I am reaching out today [...] 08, 2021 5:06 PM documented in this encounterRiverside [facility] Hospital12-07-2017 History of Past illness Narrative* Problem Noted Date Resolved Date DDD (degenerative disc disease), lumbar 08/26/20 17 03/15/2018 Lumbar radiculopathy 08/26/2017 03/15/2018 Recurrent ventral incisional hernia 07/01/2015 08/26/2017 Unilateral inguinal hernia without obstruction o r gangrene 07/01/2015 08/26/2017 Well adult exam 01/09/2015 03/15/2018 Overview: last done 01/09/2015 Aneurysm of abdominal aorta 01/11/201212/20 documented as of this encounter (statuses as of 12/08/2021) [facility] of Past illness Narrative* Problem Noted Date Resolved Date DDD (degenerative disc disease), lumbar 08/26/20 17 03/15/2018 Lumbar radiculopathy 08/26/2017 03/15/2018 Recurrent ventral incisional hernia 07/01/2015 08/26/2017 Unilateral inguinal hernia without obstruction o r gangrene 07/01/2015 08/26/2017 Well adult exam 01/09/2015 03/15/2018 Overview: last done 01/09/2015 Aneurysm of abdominal aorta 01/11/201212/20 documented as of this encounter (statuses as of 01/13/2022) [facility] of [facility] illness Narrative* Problem Noted Date Resolved Date DDD (degenerative disc disease), lumbar 08/26/20 17 03/15/2018 Lumbar radiculopathy 08/26/2017 03/15/2018 Recurrent ventral incisional hernia 07/01/2015 08/26/2017 Unilateral inguinal hernia without obstruction o r gangrene 07/01/2015 08/26/2017 Well adult exam 01/09/2015 03/15/2018 Overview: last done 01/09/2015 Aneurysm of abdominal aorta 01/11/201212/20 documented as of this encounter (statuses as of 02/06/2022) [facility] Narrative* Problem Noted Date Resolved Date DDD (degenerative disc disease), lumbar 08/26/20 17 03/15/2018 Lumbar radiculopathy 08/26/2017 03/15/2018 Recurrent ventral incisional hernia 07/01/2015 08/26/2017 Unilateral inguinal hernia without obstruction o r gangrene 07/01/2015 08/26/2017 Well adult exam 01/09/2015 03/15/2018 Overview: last done 01/09/2015 Aneurysm of abdominal aorta 01/11/201212/20 documented as of this encounter (statuses as of 02/09/2022) [facility] Narrative* Problem Noted Date Resolved Date DDD (degenerative disc disease), lumbar 08/26/20 17 03/15/2018 Lumbar radiculopathy 08/26/2017 03/15/2018 Recurrent ventral incisional hernia 07/01/2015 08/26/2017 Unilateral inguinal hernia without obstruction o r gangrene 07/01/2015 08/26/2017 Well adult exam 01/09/2015 03/15/2018 Overview: last done 01/09/2015 Aneurysm of abdominal aorta 01/11/201212/20 documented as of this encounter (statuses as of 02/10/2022) [facility] Narrative* Problem Noted Date Resolved Date DDD (degenerative disc disease), lumbar 08/26/20 17 03/15/2018 Lumbar radiculopathy 08/26/2017 03/15/2018 Recurrent ventral incisional hernia 07/01/2015 08/26/2017 Unilateral inguinal hernia without obstruction o r gangrene 07/01/2015 08/26/2017 Well adult exam 01/09/2015 03/15/2018 Overview: last done 01/09/2015 Aneurysm of abdominal aorta 01/11/201212/20 documented as of this encounter (statuses as of 02/17/2022) [facility] Narrative* Problem Noted Date Resolved Date DDD (degenerative disc disease), lumbar 08/26/20 17 03/15/2018 Lumbar radiculopathy 08/26/2017 03/15/2018 Recurrent ventral incisional hernia 07/01/2015 08/26/2017 Unilateral inguinal hernia without obstruction o r gangrene 07/01/2015 08/26/2017 Well adult exam 01/09/2015 03/15/2018 Overview: last done 01/09/2015 Aneurysm of abdominal aorta 01/11/201212/20 documented as of this encounter (statuses as of 02/18/2022) [facility] Narrative* Problem Noted Date Resolved Date DDD (degenerative disc disease), lumbar 08/26/20 17 03/15/2018 Lumbar radiculopathy 08/26/2017 03/15/2018 Recurrent ventral incisional hernia 07/01/2015 08/26/2017 Unilateral inguinal hernia without obstruction o r gangrene 07/01/2015 08/26/2017 Well adult exam 01/09/2015 03/15/2018 Overview: last done 01/09/2015 Aneurysm of abdominal aorta 01/11/201212/20 documented as of this encounter (statuses as of 03/13/2022) [facility] Narrative* Problem Noted Date Resolved Date DDD (degenerative disc disease), lumbar 08/26/20 17 03/15/2018 Lumbar radiculopathy 08/26/2017 03/15/2018 Recurrent ventral incisional hernia 07/01/2015 08/26/2017 Unilateral inguinal hernia without obstruction o r gangrene 07/01/2015 08/26/2017 Well adult exam 01/09/2015 03/15/2018 Overview: last done 01/09/2015 Aneurysm of abdominal aorta 01/11/201212/20 documented as of this encounter (statuses as of 05/26/2022) [facility] Narrative* Problem Noted Date Resolved Date DDD (degenerative disc disease), lumbar 08/26/20 17 03/15/2018 Lumbar radiculopathy 08/26/2017 03/15/2018 Recurrent ventral incisional hernia 07/01/2015 08/26/2017 Unilateral inguinal hernia without obstruction o r gangrene 07/01/2015 08/26/2017 Well adult exam 01/09/2015 03/15/2018 Overview: last done 01/09/2015 Aneurysm of abdominal aorta 01/11/201212/20 documented as of this encounter (statuses as of 07/03/2022) [facility] Narrative* Problem Noted Date Resolved Date DDD (degenerative disc disease), lumbar 08/26/20 17 03/15/2018 Lumbar radiculopathy 08/26/2017 03/15/2018 Recurrent ventral incisional hernia 07/01/2015 08/26/2017 Unilateral inguinal hernia without obstruction o r gangrene 07/01/2015 08/26/2017 Well adult exam 01/09/2015 03/15/2018 Overview: last done 01/09/2015 Aneurysm of abdominal aorta 01/11/201212/20 documented as of this encounter (statuses as of 12/31/2022) [facility] Narrative* Problem Noted Date Resolved Date DDD (degenerative disc disease), lumbar 08/26/20 17 03/15/2018 Lumbar radiculopathy 08/26/2017 03/15/2018 Recurrent ventral incisional hernia 07/01/2015 08/26/2017 Unilateral inguinal hernia without obstruction o r gangrene 07/01/2015 08/26/2017 Well adult exam 01/09/2015 03/15/2018 Overview: last done 01/09/2015 Aneurysm of abdominal aorta 01/11/201212/20 documented as of this encounter (statuses as of 01/08/2023) [facility] Narrative* Problem Noted Date Resolved Date DDD (degenerative disc disease), lumbar 08/26/20 17 03/15/2018 Lumbar radiculopathy 08/26/2017 03/15/2018 Recurrent ventral incisional hernia 07/01/2015 08/26/2017 Unilateral inguinal hernia without obstruction o r gangrene 07/01/2015 08/26/2017 Well adult exam 01/09/2015 03/15/2018 Overview: last done 01/09/2015 Aneurysm of abdominal aorta 01/11/201212/20 documented as of this encounter (statuses as of 01/13/2023) [facility] Narrative* Problem Noted Date Resolved Date DDD (degenerative disc disease), lumbar 08/26/20 17 03/15/2018 Lumbar radiculopathy 08/26/2017 03/15/2018 Recurrent ventral incisional hernia 07/01/2015 08/26/2017 Unilateral inguinal hernia without obstruction o r gangrene 07/01/2015 08/26/2017 Well adult exam 01/09/2015 03/15/2018 Overview: last done 01/09/2015 Aneurysm of abdominal aorta 01/11/201212/20 documented as of this encounter (statuses as of 01/19/2023) [facility]12[facility]2017 History of Past illness Narrative* Problem Noted Date Resolved Date DDD (degenerative disc disease), lumbar 08/26/20 17 03/15/2018 Lumbar radiculopathy 08/26/2017 03/15/2018 Recurrent ventral incisional hernia 07/01/2015 08/26/2017 Unilateral inguinal hernia without obstruction o r gangrene 07/01/2015 08/26/2017 Well adult exam 01/09/2015 03/15/2018 Overview: last done 01/09/2015 Aneurysm of abdominal aorta 01/11/201212/20 documented as of this encounter (statuses as of 01/20/2023) [facility]2017 History of Past illness Narrative* Problem Noted Date Resolved Date DDD (degenerative disc disease), lumbar 08/26/20 17 03/15/2018 Lumbar radiculopathy 08/26/2017 03/15/2018 Recurrent ventral incisional hernia 07/01/2015 08/26/2017 Unilateral inguinal hernia without obstruction o r gangrene 07/01/2015 08/26/2017 Well adult exam 01/09/2015 03/15/2018 Overview: last done 01/09/2015 Aneurysm of abdominal aorta 01/11/201212/20 documented as of this encounter (statuses as of 02/01/2023) [facility] History of Past illness Narrative* Problem Noted Date Resolved Date DDD (degenerative disc disease), lumbar 08/26/20 17 03/15/2018 Lumbar radiculopathy 08/26/2017 03/15/2018 Recurrent ventral incisional hernia 07/01/2015 08/26/2017 Unilateral inguinal hernia without obstruction o r gangrene 07/01/2015 08/26/2017 Well adult exam 01/09/2015 03/15/2018 Overview: last done 01/09/2015 Aneurysm of abdominal aorta 01/11/201212/20 documented as of this encounter (statuses as of 03/04/2023) [facility] History of Past illness Narrative* Problem [...] of this encounter (statuses as of 04/16/2023) [facility] History of Past illness Narrative* Problem [...] of this encounter (statuses as of 05/21/2023) [facility] History of Past illness Narrative* Problem [...] of this encounter (statuses as of 06/26/2023) [facility] History of Past illness Narrative* Problem [...] of this encounter (statuses as of 08/10/2023) [facility] History of Past illness Narrative* Problem [...] of this encounter (statuses as of 12/01/2023) [facility] History of Past illness Narrative* Problem [...] of this encounter (statuses as of 12/31/2023) [facility] History of Past illness Narrative* Problem [...] of this encounter (statuses as of 01/05/2024) [facility] Olamide Morales [facility] Note Date/Time May 22, 2025 5:26pm [facility] Medical Records Department [address] [place] [address] Instructions for Home/Discharge Instructions 05/22/25 1723 MR#: [id number] Acct: [id number] Name: LEANA CAMEJO Rep #:[id number] : [...] can be placed): Home, Self Care 05/22/25 0266<Electronically signed by Olamide Morales MD>Olamide Morales MD [...] MD; CHRIS Chand; CHRIS Murrell ~ Signed [facility] Work Phone: Evaluation note* Diagnosis Onset Date Resolution Status 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 Abdominal aortic 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 Essential hypertension chron ic Hyperlipidemia [facility] Work Phone: Evaluation note* Diagnosis BENIGN HYPERTENSION- Primary Essential hypertension, benign [facility] Diagnosis Cough- Primary Acute upper respiratory infection, unspecified documented in this encounter [facility] note* Diagnosis Other hyperlipidemia documented in this encounter [facility] note* Diagnosis BENIGN HYPERTENSION Essential hypertension, benign Chronic diastolic CHF (congestive heart failure) (HCC) Chronic diastolic heart failure documented in this encounter [facility] note* Diagnosis Loose stools- Primary Abnormal feces [facility]* Diagnosis Diarrhea, unspecified type- Primary Chronic diastolic CHF (congestive heart failure) (HCC) Chronic diastolic heart failure Abdominal aortic aneurysm (AAA) without rupture, unspecified part (HCC) [facility]* Diagnosis Diarrhea, unspecified type documented in this encounter [facility] noteNo assessment information [facility] Work Phone: Evaluation note* Diagnosis Acute maxillary sinusitis, recurrence not specified- Primary Acute otitis media, right Unspecified otitis media [facility]* Diagnosis Primary hypertension- Primary Unspecified essential hypertension Abdominal aortic aneurysm (AAA) without rupture, unspecified part (HCC) documented in this encounter [facility] note* Diagnosis Onset Date Resolution Status Abdominal aortic 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 Chronic renal failure, stage 3 (moderate) chronic Aneurysm, 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 Chronic renal failure, stage 3 (moderate) chronic Abdominal aortic 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 [facility] Work Phone: Evaluation note* Diagnosis Primary hypertension- Primary Unspecified essential hypertension S/P AAA repair Other postprocedural status [facility] Diagnosis Onset Date Resolution Status Abdominal aortic 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 Chronic renal failure, stage 3 (moderate) chronic Aneurysm, 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 Chronic renal failure, stage 3 (moderate) chronic Abdominal aortic 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 Aneurysm, 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 [facility] Work Phone: evaluation note* Diagnosis Stage 3 chronic kidney disease, unspecified whether stage 3a or 3b CKD (HCC)- Primary [facility] Diagnosis BENIGN HYPERTENSION Essential hypertension, benign Chronic diastolic CHF (congestive heart failure) (HCC) Chronic diastolic heart failure [facility] Diagnosis Onset Date Resolution Status Aneurysm, 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 Chronic renal failure, stage 3 (moderate) [facility] Work Phone: Evaluation note* Diagnosis Medicare annual wellness visit, subsequent- Primary Routine general medical examination at a [facility] facility [facility] Diagnosis Encounter for other preprocedural examination- Primary [facility]* Diagnosis Primary hypertension- Primary Unspecified essential hypertension Allergic rhinitis, unspecified seasonality, unspecified trigger Chronic diastolic CHF (congestive heart failure) (HCC) Chronic diastolic heart failure Stage 3a chronic kidney disease (HCC) Other hyperlipidemia Abdominal aortic aneurysm (AAA) without rupture, unspecified part (HCC) [facility]* Diagnosis 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)- Primary S/P carotid endarterectomy right Other postprocedural status Mixed hyperlipidemia BPH with urinary obstruction Hypertrophy of prostate with urinary obstruction and other lower urinary tract symptoms (LUTS) Stage 3a chronic kidney disease (HCC) Chronic diastolic CHF (congestive heart failure) (HCC) Chronic diastolic heart failure [facility]* Diagnosis Acute pain of both shoulders- Primary Acute pain of both shoulders [facility]* Diagnosis BENIGN HYPERTENSION Essential hypertension, benign [facility]* Diagnosis Chronic right shoulder pain- Primary Pain in joint, shoulder region [facility] Diagnosis Primary hypertension Unspecified essential hypertension [facility]* Diagnosis Dizziness- Primary Dizziness and giddiness Chronic diastolic CHF (congestive heart failure) (HCC) Chronic diastolic heart failure BENIGN HYPERTENSION Essential hypertension, benign Weight loss Loss of weight Fatigue, unspecified type History of anemia Personal history of diseases of blood and blood-forming organs [facility] Diagnosis Acute pain of both shoulders [facility]* Diagnosis TIA (transient ischemic attack)- Primary Unspecified transient cerebral ischemia S/P carotid endarterectomy right Other postprocedural status Chronic diastolic CHF (congestive heart failure) (HCC) Chronic diastolic heart failure Stage 3b chronic kidney disease (HCC) Thrombocytopenia (HCC) Thrombocytopenia, unspecified Abnormal TSH Other abnormal clinical finding Mixed hyperlipidemia [facility]* Diagnosis Diarrhea, unspecified type [facility]* Diagnosis Procedure not carried out- Primary Procedure not carried out for other reasons [facility]* Diagnosis Spigelian hernia- Primary Other ventral hernia without mention of obstruction or gangrene 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 Other postprocedural status Pancreatic cyst Cyst and pseudocyst of pancreas Splenomegaly [facility]* Diagnosis Medicare annual wellness visit, subsequent- [...] kidney disease (HCC) [facility]* Diagnosis Subclinical hypothyroidism- Primary Other specified acquired hypothyroidism [facility] Primary hypertension Unspecified essential hypertension [facility] Diagnosis Abrasion of head, initial encounter- Primary [facility]* Diagnosis Contusion of scalp, subsequent encounter- Primary Fall, subsequent encounter Proximal leg weakness Other musculoskeletal symptoms referable to limbs [facility] Diagnosis Fall, subsequent encounter- Primary [...] heart failure [facility] Diagnosis Fall, subsequent encounter- Primary Proximal [...] (HCC)- Primary [facility]* Diagnosis 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 documented in this encounter [facility] note* Diagnosis Subclinical hypothyroidism- Primary Other specified acquired hypothyroidism Fatigue, unspecified type Type II endoleak of aortic graft Anemia of chronic disease Anemia of other chronic disease Stage 3b chronic kidney disease (HCC) Essential hypertension Unspecified essential hypertension Chronic diastolic CHF (congestive heart failure) (HCC) Chronic diastolic heart failure documented in this encounter [facility] note* Diagnosis Encounter for preprocedural laboratory examination- Primary Type II endoleak of aortic graft documented in this encounter [facility] note* Diagnosis 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 documented in this encounter [facility] note* Diagnosis Essential hypertension Unspecified essential hypertension documented in this encounter [facility] note* Diagnosis Fatigue, unspecified type- Primary Essential hypertension Unspecified essential hypertension Chronic diastolic CHF (congestive heart failure) (HCC) Chronic diastolic heart failure Anemia, unspecified type Subclinical hypothyroidism Other specified acquired hypothyroidism documented in this encounter [facility] note* Diagnosis NSTEMI (non-ST elevated myocardial infarction) ([facility])- Primary Acute myocardial infarction, subendocardial infarction, episode of care unspecified Chronic diastolic CHF (congestive heart failure) ([facility]) Chronic diastolic heart failure Stage 3b chronic kidney disease (HCC) Essential hypertension Unspecified essential hypertension Anemia of chronic disease Anemia of other chronic disease Type II endoleak of aortic graft Thrombocytopenia Thrombocytopenia, unspecified Acquired hypothyroidism Unspecified hypothyroidism Sacral decubitus ulcer, stage II ([facility]) Pressure ulcer, lower back [facility] Additional Instructions 1. Take antibiotics until gone. 2 if you develop a fever, your pain becomes worse and spite of the antibiotics or unable to eat or drink anything [facility] Progress note Author Alexandru Laughlin [facility] Note Date/Time May 22, 2025 4:25pm [facility] Medical Records Department [address] [place] [address] Progress Note - Cardiology 05/22/25 1620 MR#: [id number] Acct: [id number] Name: LEANA CAMEJO KRYSTLE Rep #:[id number] [...] % (Auto) 58.9, Lymph % (Auto) 25.9, [place] % (Auto) 9.6, Eos % (Auto) 4.8, [...] Phosphatase 37 L, [place] [address] H, Total Protein 6.3, Albumin 3.5, Globulin [...] % (Auto) 58.9, Lymph % (Auto) 25.9, [place] % (Auto) 9.6, Eos % (Auto) 4.8, [...] changes since the prior study. Reading [facility] Assessment & Plan Assessment/Plan (1) Non-ST elevation UT (NSTEMI): PLAN: Patient is bumped his enzymes [...] The patient should be reevaluated in the [place] [facility] office in 2 weeks with one of the WEN's and check a basic metabolic panel to determine the patient's renal function and then see Dr. Laughlin in 6 weeks. Should the patient have symptoms consistent with angina would recommend pursuingleft heart catheterization. PLAN: Plan 1. Continue current medical therapy. 2. Basic metabolic panel and WEN visit with the [place] [facility] in 2 weeks. 3. Patient instructed to call the [place] [facility] should he have any type of chest tightness or symptoms consistent with angina. 4. Patient to follow-up with Dr. Laughlin in 6 weeks in the office. 05/22/25 1624 <Electronically signed by Alexandru Laughlin MD> Cosigner Signature (if applicable): CC: ~ Signed [facility] Work Phone: Reason for referral (narrative)* Outpatient Procedure (Routine) - Authorized Specialty Diagnoses / Procedures Referred By Trace flores Referred To Contact [facility] Diagnoses Diarrhea, unspecified type Procedures COLONOSCOPY DIAGNOSTIC COLONOSCOPY FLX DX W/COLLJ SPEC WHEN PFRMD Lisa Rodriguez MD [address] [place] [address] [facility] [address] [place] [address] Referral ID Status Reason Start Date Expiration Date Visits Requested Visits Authorized [id number] Authorized Auto-Generat ed Referral 01/07/2023 01/08/2024 1 1 [facility] for referral (narrative)* Diagnostic Procedure Only (Urgent) - Closed Specialty Diagnoses / Procedures Referred By Trace flores Referred To Contact XR IMAGING Diagnoses Acute pain of both shoulders Procedures XR SHOULDER GENERAL 3V OR MORE AP/TRUE AP/OTHER LEFT RADEX SHOULDER COMPLETE MINIMUM 2 VIEWS Ayla Carrasquillo PA-C [address] [place] [address] [place] [address] Referral ID Status Reason Start Date Expiration Date V isits Requested Visits Authorized [id number] Closed Auto-Generate d Referral 02/09/2024 03/10/2025 1 1 * Diagnostic Procedure Only (Urgent) - Closed Specialty Diagnoses / Procedures Referred By Contac t Referred To Contact XR IMAGING Diagnoses Acute pain of both shoulders Procedures XR SHOULDER GENERAL 3V OR MORE AP/TRUE AP/OTHER RIGHT RADEX SHOULDER COMPLETE MINIMUM 2 VIEWS Ayla Carrasquillo PA-C [address] [place] [address] [place] [id number] Referral ID Status Reason Start Date Expiration Date V isits Requested Visits Authorized [id number] Closed Auto-Generate d Referral 02/09/2024 03/10/2025 1 1 [facility] for referral (narrative)* Outpatient Procedure (Routine) - Closed Specialty Diagnoses / Procedures Referred By Contac t Referred To Contact [facility] Diagnoses Diarrhea, unspecified type Procedures COLONOSCOPY DIAGNOSTIC COLONOSCOPY FLX DX W/COLLJ SPEC WHEN PFRMD Lisa Rodriguez MD [address] [place] [address] [facility] [address] [place] [address] Referral ID Status Reason Start Date Expiration Date V isits Requested Visits Authorized [id number] Closed Auto-Generate d Referral 01/07/2023 01/08/2024 1 1 [facility] for referral (narrative)No reason for referral information [facility]WPro[facility] Work Phone: Reason for visit Narrative* Diagnostic Procedure Only (Urgent) - Closed Specialty Diagnoses / Procedures Referred By Contac t Referred To Contact XR IMAGING Diagnoses Acute pain of both shoulders Procedures XR SHOULDER GENERAL 3V OR MORE AP/TRUE AP/OTHER LEFT RADEX SHOULDER COMPLETE MINIMUM 2 VIEWS Ayla Carrasquillo, JAGDEEP [address] [place] [address] [place] [address] Referral ID Status Reason Start Date Expiration Date V isits Requested Visits Authorized [id number] Closed Auto-Generate d Referral 02/09/2024 03/10/2025 1 1 [facility] for visit Narrative* Outpatient Procedure (Routine) - Closed Specialty Diagnoses / Procedures Referred By Contac t Referred To Contact [facility] Diagnoses Diarrhea, unspecified type Procedures COLONOSCOPY DIAGNOSTIC COLONOSCOPY FLX DX W/COLLJ SPEC WHEN PFRMD Lisa Rodriguez MD [address] [place] [address] [facility] [address] [place] [address] Referral ID Status Reason Start Date Expiration Date V isits Requested Visits Authorized [id number] Closed Auto-Generate d Referral 01/07/2023 01/08/2024 1 1 [facility] for visit Narrative* MRI/CT (Routine) - Closed Specialty Diagnoses / Procedures Referred By Contac t Referred To Contact CT IMAGING Diagnoses LLQ abdominal pain Left lower quadrant abdominal pain Procedures CT ABD/PEL W IVCON CT ABD & PELVIS W/CONTRAST Darya Borden, [employer] OPERATOR [address] [place] [address] Phone: tel: fax: [place] [address] Referral ID Status Reason Start Date Expiration Date V isits Requested Visits Authorized [id number] Closed Auto-Generate d Referral 11/27/2024 12/27/2025 1 1 [facility] for visit Narrative* MRI/CT (Routine) - Closed Specialty Diagnoses / Procedures Referred By Contac t Referred To Contact CT IMAGING Diagnoses LLQ abdominal pain Left lower quadrant abdominal pain Procedures CT ABD/PEL W IVCON CT ABD & PELVIS W/CONTRAST Darya Borden, [employer] M[employer] OPERATOR [address] [place] [address] Phone: tel: fax: [place] [address] Referral ID Status Reason Start Date Expiration Date V isits Requested Visits Authorized [id number] Closed Auto-Generate d Referral 11/27/2024 12/27/2025 1 1 [facility] for visit Narrative* Imaging (Routine) - Closed Specialty Diagnoses / Procedures Referred By Trace t Referred To Contact Radiology Diagnoses Type II endoleak of aortic graft Procedures IR Embolization Ana Bobo MD [address] [place] [address] Phone: tel: fax: Referral ID Status Reason Start Date Expiration Date Visits Re quested Visits Authorized [id number] Closed 03/01/2025 03/01/2026 1 1 [facility] Health Summary Purpose Family History No Family [...] Documents on File Type Date Recorded 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 Advance Directives and Living Will Power of Manager Culture Documents on File Type Date Recorded 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 Advance Directive(s) Advance Directive(s) 05/21/2020 7:47 AM Advance Directive(s) 05/09/2020 2:53 PM Advance Directive Response Recorded Date/ Time Advance Directives Yes October 11, 2016 3:05pm Living Will Yes January 20, 2021 8: 52pm Power of Manager Culture Yes January 20, 2021 8:52pm Advance Directive Response Recorded Date/ Time Name of Medical Power of Manager Culture Libra April 07, 2023 10:14am Advance Directives Yes October 11, 2016 3:05pm Living Will Yes April 07, 2023 10:14am Power of Manager Culture Yes April 07 10:14am Advance Directive Response Recorded Date/ Time Advance Directives Yes October 11, 2016 2:05pm Living Will Yes April 07, 2023 9:14am Power of Manager Culture Yes April 07 9:14am Advance Directive Response Recorded Date/ Time Advance Directives Yes October 11, 2016 3:05pm Living Will Yes April 07, 2023 10:14am Power of Manager Culture Yes April 07 10:14am Date Activated Date Inactivated Comments 11/28/2024 9:51 PM Date Activated Date Inactivated Comments 11/28/2024 9:51 PM Question Answer Comments Full Code Order Discussed With: Patient Advance Directive Response Recorded Date/ Time Living Will Yes August 11, 024 1:26pm Power of Manager Culture Yes August 11, 2024 1:26pm Name of Medical Power of Manager Culture August 11, 2024 1:26pm Living Will Yes November 28, 2024 5:58pm Power of Manager Culture Yes November 28 5:58pm Name of Medical Power of Manager Culture Libra Camejo November 28, 2024 5:58pm Advance Directives Yes October 11, 2016 3:05pm Advance Directive Response Recorded Date/ Time Do you have a Healthcare Power of Manager Culture? No January 12, 2025 10:29am Living Will Yes November 28, 2024 5:58pm Do you have a Healthcare Power of Manager Culture? Yes November 28, 2024 5:58pm Name of Medical Power of Manager Culture Libra Camejo November 28, 2024 5:58pm Advance Directives Yes October 11, 2016 3:05pm Advance Directive Response Recorded Date/ Time Do you have a Healthcare Power of Manager Culture? No January 12, 2025 10:29am Advance Directives on File Yes January 192024 9:53am Living Will Yes February 14, 2025 9 :53am Do you have a Healthcare Power of Manager Culture? Yes February 14, 2025 9:53am Name of Medical Power of Manager Culture Libra (Spouse) February 14, 2025 9:53am Advance Directives Yes February 14 9:53am Living Will Yes November 28, 2024 5:58pm Do you have a Healthcare Power of Manager Culture? Yes November 28, 2024 5:58pm Name of Medical Power of Manager Culture Libra Camejo November 28, 2024 5:58pm Advance Directive Response Recorded Date/ Time Do you have a Healthcare Power of Manager Culture? No January 12, 2025 10:29am Advance Directives on File Yes January 192024 9:53am Living Will Yes February 14, 2025 9 :53am Do you have a Healthcare Power of Manager Culture? Yes February 14, 2025 9:53am Name of Medical Power of Manager Culture Libra (Spouse) February 14, 2025 9:53am Advance Directives Yes February 14 9:53am Advance Directive Response Recorded Date/ Time Advance Directives on File Yes January 192024 9:53am Living Will Yes February 14, 2025 9 :53am Do you have a Healthcare Power of Manager Culture? Yes February 14, 2025 9:53am Name of Medical Power of Manager Culture Libra (Spouse) February 14, 2025 9:53am Advance Directives Yes February 14 9:53am Advance Directive Response Recorded Date/ Time Advance Directives on File Yes January 192024 9:53am Living Will Yes February 14, 2025 9 :53am Do you have a Healthcare Power of Manager Culture? Yes February 14, 2025 9:53am Name of Medical Power of Manager Culture Libra (Spouse) February 14, 2025 9:53am Advance Directives Yes February 14 9:53am Do you have a Healthcare Power of Manager Culture? Yes May 21, 2025 5:02am Advance Directive Response Recorded Date/ Time Do you have a Healthcare Power of Manager Culture? Yes May 21, 2025 5:02am Advance Directives [...] your doctor if you can take an hbcp-qgm-aweljcj medicine. If you think your pain medicine [...] as of: July 26, 2018 Content Version: [id number] [employer]. Care instructions adapted under license by [employer]. If youhave questions about a medical condition or this instruction, always ask your healthcare professional. [employer] disclaims any warranty or liability for your use of this information. If you have any questions or problems following your test, please call: [phone] (7AM - 4PM) or after 4PM call [phone] and ask for the angiography radiologist solutions sales consultant documented in this encounter History of Present [...] EDT Patient arrived to CT department from [facility] for a Rt. Hip/ psoas aspiration. Dr. Quevedo in to discuss procedure with patient and informed consent obtained. Patient assisted to CT table . slipman on. 10 ccs red fluid removed from [...] FU February 27, 2025 2:40pm FU from [facility] April 18, 2025 4:16 pm Reason [...] FU February 27, 2025 2:40pm FU from [facility] April 18, 2025 4:16 pm AAA, [...] FU February 27, 2025 2:40pm FU from [facility] April 18, 2025 4:16 pm AAA, [...] FU February 27, 2025 2:40pm FU from [facility] April 18, 2025 4:16 pm AAA, [...] FU February 27, 2025 2:40pm FU from [facility] April 18, 2025 4:16 pm AAA, [...] flutter May 21, 2025 3:46am Non-ST elevation UT (NSTEMI) May 212024 3:46am Abdominal aortic aneurysm [...] flutter May 21, 2025 4:22am Non-ST elevation UT (NSTEMI) May 212024 4:22am Stenosis of right [...] FU February 27, 2025 2:40pm FU from [facility] April 18, 2025 4:16 pm AAA, [...] flutter May 21, 2025 4:22am Non-ST elevation UT (NSTEMI) May 212024 4:22am Stenosis of right [...] FU February 27, 2025 2:40pm FU from [facility] April 18, 2025 4:16 pm AAA, [...] flutter May 21, 2025 4:22am Non-ST elevation UT (NSTEMI) May 212024 4:22am Stenosis of right [...] CNTRST MTRL W/WO CNTRST IMShaun Bocanegra MD [address] [place] [address] Ct Imaging [place] [address] Referral ID Status Reason Start Date Expiration Date Visits Requested Visits Authorized [id number] Authorized Auto-Generat ed Referral 01/05/2024 02/03/2025 1 1 Specialty Diagnoses / Procedures Referred By Contac t Referred To Contact CT IMAGING Diagnoses Encounter for other preprocedural examination Procedures CTA CHEST (NONGATED) WO/W IVCON CT ANGIOGRAPHY CHEST W/CONTRAST/NONCONTRAST Shaun Kowalski MD [address] [facility] [place] [address] Ct Imaging [place] [address] Referral ID Status Reason Start Date Expiration Date Visits Requested Visits Authorized [id number] Authorized Auto-Generat ed Referral 01/05/2024 02/03/2025 1 1 Specialty Diagnoses / Procedures Referred By Contac t Referred To Contact Orthopedics Diagnoses Acute pain of both shoulders Procedures CONSULT TO ORTHOPAEDICS OFFICE/[facility] 60 MINUTES Ayla Carrasquillo PA-C [address] [place] [address] Referral ID Status Reason Start Date Expiration Date Visits Requested Visits Authorized [id number] Authorized PCP Requested Referral 02/09/2024 02/08/2025 1 1 Specialty Diagnoses / Procedures Referred By Contac t Referred To Contact XR IMAGING Diagnoses Acute pain of both shoulders Procedures XR SHOULDER GENERAL 3V OR MORE AP/TRUE AP/OTHER LEFT RADEX SHOULDER COMPLETE MINIMUM 2 VIEWS Ayla Carrasquillo PA-C [address] [place] [address] [place] [address] Referral ID Status Reason Start Date Expiration Date V isits Requested Visits Authorized [id number] Closed Auto-Generate d Referral 02/09/2024 03/10/2025 1 1 Specialty Diagnoses / Procedures Referred By Contac t Referred To Contact XR IMAGING Diagnoses Acute pain of both shoulders Procedures XR SHOULDER GENERAL 3V OR MORE AP/TRUE AP/OTHER RIGHT RADEX SHOULDER COMPLETE MINIMUM 2 VIEWS Ayla Carrasquillo PA-C [address] [place] [address] [place] [address] Referral ID Status Reason Start Date Expiration Date V isits Requested Visits Authorized [id number] Closed Auto-Generate d Referral 02/09/2024 03/10/2025 1 1 Specialty Diagnoses / Procedures Referred By Contac t Referred To Contact Vascular Surgery Diagnoses 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 Procedures CONSULT TO VASCULAR SURGERY Dallas Reed MD [address] [place] [address] Referral ID Status Reason Start Date Expiration Date Visits Requested Visits Authorized [id number] Ref Not Required PCP Requested Referral 07/17/2025 1 1 Specialty Diagnoses / Procedures Referred By Contac t Referred To Contact General Surgery Diagnoses Spigelian hernia Pancreatic cyst Procedures CONSULT TO GENERAL SURGERY Dallas Reed MD [address] [place] [address] Referral ID Status Reason Start Date Expiration Date Visits Requested Visits Authorized [id number] Ref Not Required PCP Requested Referral 4 07/17/2025 1 1 Additional Source Comments (unrecognized sect ion and content) No Status Records FoundNo Status Records FoundNo Status Records FoundNo Status Records FoundNo Status Records FoundNo Status Records FoundNo Status Records Found INFORMATION SOURCE (unrecogn ized section and content) DATE CREATED AUTHOR 03/10/2018 [facility] DATE CREATED AUTHOR AUTHOR'S ORGANIZ ATION 03/10/2018 [facility] DATE CREATED AUTHOR AUTHOR'S ORGANIZ ATION 06/20/2019 [facility] ([place]) DATE CREATED AUTHOR AUTHOR'S ORGANIZ ATION 07/24/2019 [facility] DATE CREATED AUTHOR AUTHOR'S ORGANIZ ATION 03/22/2025 [facility] DATE CREATED AUTHOR AUTHOR'S ORGANIZ ATION 06/11/2025 [facility] DATE CREATED AUTHOR AUTHOR'S ORGANIZ ATION 06/23/2025 [facility] Source Comments (unrecognize d section and content) In the event this informatio n is protected by the Federal Confidentiality of Alcohol and Drug Abuse Patient Records regulations: The Federal rules restrict any use of the information to criminally investigate or prosecute any alcohol or drug abuse patient.[facility] the event this information is protected by the Federal Confidentiality of Alcohol and Drug Abuse Patient Records regulations: The Federal rules restrict any use of the information to criminally investigate or prosecute any alcohol or drug abuse patient.[facility]In the event this information is protected by the Federal Confidentiality of Alcohol and Drug Abuse Patient Records regulations: The Federal rules restrict any use of the information to criminally investigate or prosecute any alcohol or drug abuse patient.[facility]In the event this information is protected by the Federal Confidentiality of Alcohol and Drug Abuse Patient Records regulations: The Federal rules restrict any use of the information to criminally investigate or prosecute any alcohol or drug abuse patient.[facility]In the event this information is protected by the Federal Confidentiality of Alcohol and Drug Abuse Patient Records regulations: The Federal rules restrict any use of the information to criminally investigate or prosecute any alcohol or drug abuse patient.[facility]In the event this information is protected by the Federal Confidentiality of Alcohol and Drug Abuse Patient Records regulations: The Federal rules restrict any use of the information to criminally investigate or prosecute any alcohol or drug abuse patient.[facility]In the event this information is protected by the Federal Confidentiality of Alcohol and Drug Abuse Patient Records regulations: The Federal rules restrict any use of the information to criminally investigate or prosecute any alcohol or drug abuse patient.[facility]In the event this information is protected by the Federal Confidentiality of Alcohol and Drug Abuse Patient Records regulations: The Federal rules restrict any use of the information to criminally investigate or prosecute any alcohol or drug abuse patient.[facility]In the event this information is protected by the Federal Confidentiality of Alcohol and Drug Abuse Patient Records regulations: The Federal rules restrict any use of the information to criminally investigate or prosecute any alcohol or drug abuse patient.[facility]In the event this information is protected by the Federal Confidentiality of Alcohol and Drug Abuse Patient Records regulations: The Federal rules restrict any use of the information to criminally investigate or prosecute any alcohol or drug abuse patient.[facility] HospitalIn the event this information is protected by the Federal Confidentiality of Alcohol and Drug Abuse Patient Records regulations: The Federal rules restrict any use of the information to criminally investigate or prosecute any alcohol or drug abuse patient.[facility] HospitalIn the event this information is protected by the Federal Confidentiality of Alcohol and Drug Abuse Patient Records regulations: The Federal rules restrict any use of the information to criminally investigate or prosecute any alcohol or drug abuse patient.[facility]In the event this information is protected by the Federal Confidentiality of Alcohol and Drug Abuse Patient Records regulations: The Federal rules restrict any use of the information to criminally investigate or prosecute any alcohol or drug abuse patient.[facility] HospitalIn the event this information is protected by the Federal Confidentiality of Alcohol and Drug Abuse Patient Records regulations: The Federal rules restrict any use of the information to criminally investigate or prosecute any alcohol or drug abuse patient.[facility] HospitalIn the event this information is protected by the Federal Confidentiality of Alcohol and Drug Abuse Patient Records regulations: The Federal rules restrict any use of the information to criminally investigate or prosecute any alcohol or drug abuse patient.[facility] HospitalIn the event this information is protected by the Federal Confidentiality of Alcohol and Drug Abuse Patient Records regulations: The Federal rules restrict any use of the information to criminally investigate or prosecute any alcohol or drug abuse patient.[facility] HospitalIn the event this information is protected by the Federal Confidentiality of Alcohol and Drug Abuse Patient Records regulations: The Federal rules restrict any use of the information to criminally investigate or prosecute any alcohol or drug abuse patient.[facility] HospitalIn the event this information is protected by the Federal Confidentiality of Alcohol and Drug Abuse Patient Records regulations: The Federal rules restrict any use of the information to criminally investigate or prosecute any alcohol or drug abuse patient.[facility] HospitalIn the event this information is protected by the Federal Confidentiality of Alcohol and Drug Abuse Patient Records regulations: The Federal rules restrict any use of the information to criminally investigate or prosecute any alcohol or drug abuse patient.[facility] HospitalIn the event this information is protected by the Federal Confidentiality of Alcohol and Drug Abuse Patient Records regulations: The Federal rules restrict any use of the information to criminally investigate or prosecute any alcohol or drug abuse patient.[facility] HospitalIn the event this information is protected by the Federal Confidentiality of Alcohol and Drug Abuse Patient Records regulations: The Federal rules restrict any use of the information to criminally investigate or prosecute any alcohol or drug abuse patient.[facility] HospitalIn the event this information is protected by the Federal Confidentiality of Alcohol and Drug Abuse Patient Records regulations: The Federal rules restrict any use of the information to criminally investigate or prosecute any alcohol or drug abuse patient.[facility] HospitalIn the event this information is protected by the Federal Confidentiality of Alcohol and Drug Abuse Patient Records regulations: The Federal rules restrict any use of the information to criminally investigate or prosecute any alcohol or drug abuse patient.[facility] HospitalIn the event this information is protected by the Federal Confidentiality of Alcohol and Drug Abuse Patient Records regulations: The Federal rules restrict any use of the information to criminally investigate or prosecute any alcohol or drug abuse patient.[facility] HospitalIn the event this information is protected by the Federal Confidentiality of Alcohol and Drug Abuse Patient Records regulations: The Federal rules restrict any use of the information to criminally investigate or prosecute any alcohol or drug abuse patient.[facility] HospitalIn the event this information is protected by the Federal Confidentiality of Alcohol and Drug Abuse Patient Records regulations: The Federal rules restrict any use of the information to criminally investigate or prosecute any alcohol or drug abuse patient.[facility] HospitalIn the event this information is protected by the Federal Confidentiality of Alcohol and Drug Abuse Patient Records regulations: The Federal rules restrict any use of the information to criminally investigate or prosecute any alcohol or drug abuse patient.[facility] HospitalIn the event this information is protected by the Federal Confidentiality of Alcohol and Drug Abuse Patient Records regulations: The Federal rules restrict any use of the information to criminally investigate or prosecute any alcohol or drug abuse patient.[facility] HospitalIn the event this information is protected by the Federal Confidentiality of Alcohol and Drug Abuse Patient Records regulations: The Federal rules restrict any use of the information to criminally investigate or prosecute any alcohol or drug abuse patient.[facility] HospitalIn the event this information is protected by the Federal Confidentiality of Alcohol and Drug Abuse Patient Records regulations: The Federal rules restrict any use of the information to criminally investigate or prosecute any alcohol or drug abuse patient.[facility] HospitalIn the event this information is protected by the Federal Confidentiality of Alcohol and Drug Abuse Patient Records regulations: The Federal rules restrict any use of the information to criminally investigate or prosecute any alcohol or drug abuse patient.[facility] HospitalIn the event this information is protected by the Federal Confidentiality of Alcohol and Drug Abuse Patient Records regulations: The Federal rules restrict any use of the information to criminally investigate or prosecute any alcohol or drug abuse patient.[facility] HospitalIn the event this information is protected by the Federal Confidentiality of Alcohol and Drug Abuse Patient Records regulations: The Federal rules restrict any use of the information to criminally investigate or prosecute any alcohol or drug abuse patient.[facility] HospitalIn the event this information is protected by the Federal Confidentiality of Alcohol and Drug Abuse Patient Records regulations: The Federal rules restrict any use of the information to criminally investigate or prosecute any alcohol or drug abuse patient.[facility] HospitalIn the event this information is protected by the Federal Confidentiality of Alcohol and Drug Abuse Patient Records regulations: The Federal rules restrict any use of the information to criminally investigate or prosecute any alcohol or drug abuse patient.[facility] HospitalIn the event this information is protected by the Federal Confidentiality of Alcohol and Drug Abuse Patient Records regulations: The Federal rules restrict any use of the information to criminally investigate or prosecute any alcohol or drug abuse patient.[facility] HospitalIn the event this information is protected by the Federal Confidentiality of Alcohol and Drug Abuse Patient Records regulations: The Federal rules restrict any use of the information to criminally investigate or prosecute any alcohol or drug abuse patient.[facility] HospitalIn the event this information is protected by the Federal Confidentiality of Alcohol and Drug Abuse Patient Records regulations: The Federal rules restrict any use of the information to criminally investigate or prosecute any alcohol or drug abuse patient.[facility] HospitalIn the event this information is protected by the Federal Confidentiality of Alcohol and Drug Abuse Patient Records regulations: The Federal rules restrict any use of the information to criminally investigate or prosecute any alcohol or drug abuse patient.[facility] HospitalIn the event this information is protected by the Federal Confidentiality of Alcohol and Drug Abuse Patient Records regulations: The Federal rules restrict any use of the information to criminally investigate or prosecute any alcohol or drug abuse patient.[facility] HospitalIn the event this information is protected by the Federal Confidentiality of Alcohol and Drug Abuse Patient Records regulations: The Federal rules restrict any use of the information to criminally investigate or prosecute any alcohol or drug abuse patient.[facility] HospitalIn the event this information is protected by the Federal Confidentiality of Alcohol and Drug Abuse Patient Records regulations: The Federal rules restrict any use of the information to criminally investigate or prosecute any alcohol or drug abuse patient.[facility] HospitalIn the event this information is protected by the Federal Confidentiality of Alcohol and Drug Abuse Patient Records regulations: The Federal rules restrict any use of the information to criminally investigate or prosecute any alcohol or drug abuse patient.[facility] HospitalIn the event this information is protected by the Federal Confidentiality of Alcohol and Drug Abuse Patient Records regulations: The Federal rules restrict any use of the information to criminally investigate or prosecute any alcohol or drug abuse patient.[facility] HospitalIn the event this information is protected by the Federal Confidentiality of Alcohol and Drug Abuse Patient Records regulations: The Federal rules restrict any use of the information to criminally investigate or prosecute any alcohol or drug abuse patient.[facility] HospitalIn the event this information is protected by the Federal Confidentiality of Alcohol and Drug Abuse Patient Records regulations: The Federal rules restrict any use of the information to criminally investigate or prosecute any alcohol or drug abuse patient.[facility] HospitalIn the event this information is protected by the Federal Confidentiality of Alcohol and Drug Abuse Patient Records regulations: The Federal rules restrict any use of the information to criminally investigate or prosecute any alcohol or drug abuse patient.[facility] HospitalIn the event this information is protected by the Federal Confidentiality of Alcohol and Drug Abuse Patient Records regulations: The Federal rules restrict any use of the information to criminally investigate or prosecute any alcohol or drug abuse patient.[facility] HospitalIn the event this information is protected by the Federal Confidentiality of Alcohol and Drug Abuse Patient Records regulations: The Federal rules restrict any use of the information to criminally investigate or prosecute any alcohol or drug abuse patient.[facility] HospitalIn the event this information is protected by the Federal Confidentiality of Alcohol and Drug Abuse Patient Records regulations: The Federal rules restrict any use of the information to criminally investigate or prosecute any alcohol or drug abuse patient.[facility] HospitalIn the event this information is protected by the Federal Confidentiality of Alcohol and Drug Abuse Patient Records regulations: The Federal rules restrict any use of the information to criminally investigate or prosecute any alcohol or drug abuse patient.[facility] HospitalIn the event this information is protected by the Federal Confidentiality of Alcohol and Drug Abuse Patient Records regulations: The Federal rules restrict any use of the information to criminally investigate or prosecute any alcohol or drug abuse patient.[facility] HospitalIn the event this information is protected by the Federal Confidentiality of Alcohol and Drug Abuse Patient Records regulations: The Federal rules restrict any use of the information to criminally investigate or prosecute any alcohol or drug abuse patient.[facility] HospitalIn the event this information is protected by the Federal Confidentiality of Alcohol and Drug Abuse Patient Records regulations: The Federal rules restrict any use of the information to criminally investigate or prosecute any alcohol or drug abuse patient.[facility] HospitalIn the event this information is protected by the Federal Confidentiality of Alcohol and Drug Abuse Patient Records regulations: The Federal rules restrict any use of the information to criminally investigate or prosecute any alcohol or drug abuse patient.[facility] HospitalIn the event this information is protected by the Federal Confidentiality of Alcohol and Drug Abuse Patient Records regulations: The Federal rules restrict any use of the information to criminally investigate or prosecute any alcohol or drug abuse patient.[facility] HospitalIn the event this information is protected by the Federal Confidentiality of Alcohol and Drug Abuse Patient Records regulations: The Federal rules restrict any use of the information to criminally investigate or prosecute any alcohol or drug abuse patient.[facility] HospitalIn the event this information is protected by the Federal Confidentiality of Alcohol and Drug Abuse Patient Records regulations: The Federal rules restrict any use of the information to criminally investigate or prosecute any alcohol or drug abuse patient.[facility] HospitalIn the event this information is protected by the Federal Confidentiality of Alcohol and Drug Abuse Patient Records regulations: The Federal rules restrict any use of the information to criminally investigate or prosecute any alcohol or drug abuse patient.[facility] HospitalIn the event this information is protected by the Federal Confidentiality of Alcohol and Drug Abuse Patient Records regulations: The Federal rules restrict any use of the information to criminally investigate or prosecute any alcohol or drug abuse patient.[facility] HospitalIn the event this information is protected by the Federal Confidentiality of Alcohol and Drug Abuse Patient Records regulations: The Federal rules restrict any use of the information to criminally investigate or prosecute any alcohol or drug abuse patient.[facility] HospitalIn the event this information is protected by the Federal Confidentiality of Alcohol and Drug Abuse Patient Records regulations: The Federal rules restrict any use of the information to criminally investigate or prosecute any alcohol or drug abuse patient.[facility] HospitalIn the event this information is protected by the Federal Confidentiality of Alcohol and Drug Abuse Patient Records regulations: The Federal rules restrict any use of the information to criminally investigate or prosecute any alcohol or drug abuse patient.[facility] HospitalIn the event this information is protected by the Federal Confidentiality of Alcohol and Drug Abuse Patient Records regulations: The Federal rules restrict any use of the information to criminally investigate or prosecute any alcohol or drug abuse patient.[facility] HospitalIn the event this information is protected by the Federal Confidentiality of Alcohol and Drug Abuse Patient Records regulations: The Federal rules restrict any use of the information to criminally investigate or prosecute any alcohol or drug abuse patient.[facility] HospitalIn the event this information is protected by the Federal Confidentiality of Alcohol and Drug Abuse Patient Records regulations: The Federal rules restrict any use of the information to criminally investigate or prosecute any alcohol or drug abuse patient.[facility] HospitalIn the event this information is protected by the Federal Confidentiality of Alcohol and Drug Abuse Patient Records regulations: The Federal rules restrict any use of the information to criminally investigate or prosecute any alcohol or drug abuse patient.[facility] HospitalIn the event this information is protected by the Federal Confidentiality of Alcohol and Drug Abuse Patient Records regulations: The Federal rules restrict any use of the information to criminally investigate or prosecute any alcohol or drug abuse patient.[facility] HospitalIn the event this information is protected by the Federal Confidentiality of Alcohol and Drug Abuse Patient Records regulations: The Federal rules restrict any use of the information to criminally investigate or prosecute any alcohol or drug abuse patient.[facility] HospitalIn the event this information is protected by the Federal Confidentiality of Alcohol and Drug Abuse Patient Records regulations: The Federal rules restrict any use of the information to criminally investigate or prosecute any alcohol or drug abuse patient.[facility] HospitalIn the event this information is protected by the Federal Confidentiality of Alcohol and Drug Abuse Patient Records regulations: The Federal rules restrict any use of the information to criminally investigate or prosecute any alcohol or drug abuse patient.[facility] HospitalIn the event this information is protected by the Federal Confidentiality of Alcohol and Drug Abuse Patient Records regulations: The Federal rules restrict any use of the information to criminally investigate or prosecute any alcohol or drug abuse patient.[facility] HospitalIn the event this information is protected by the Federal Confidentiality of Alcohol and Drug Abuse Patient Records regulations: The Federal rules restrict any use of the information to criminally investigate or prosecute any alcohol or drug abuse patient.[facility] HospitalIn the event this information is protected by the Federal Confidentiality of Alcohol and Drug Abuse Patient Records regulations: The Federal rules restrict any use of the information to criminally investigate or prosecute any alcohol or drug abuse patient.[facility] HospitalIn the event this information is protected by the Federal Confidentiality of Alcohol and Drug Abuse Patient Records regulations: The Federal rules restrict any use of the information to criminally investigate or prosecute any alcohol or drug abuse patient.[facility] HospitalIn the event this information is protected by the Federal Confidentiality of Alcohol and Drug Abuse Patient Records regulations: The Federal rules restrict any use of the information to criminally investigate or prosecute any alcohol or drug abuse patient.[facility] HospitalIn the event this information is protected by the Federal Confidentiality of Alcohol and Drug Abuse Patient Records regulations: The Federal rules restrict any use of the information to criminally investigate or prosecute any alcohol or drug abuse patient.[facility] HospitalIn the event this information is protected by the Federal Confidentiality of Alcohol and Drug Abuse Patient Records regulations: The Federal rules restrict any use of the information to criminally investigate or prosecute any alcohol or drug abuse patient.[facility] HospitalIn the event this information is protected by the Federal Confidentiality of Alcohol and Drug Abuse Patient Records regulations: The Federal rules restrict any use of the information to criminally investigate or prosecute any alcohol or drug abuse patient.[facility] HospitalIn the event this information is protected by the Federal Confidentiality of Alcohol and Drug Abuse Patient Records regulations: The Federal rules restrict any use of the information to criminally investigate or prosecute any alcohol or drug abuse patient.[facility] HospitalIn the event this information is protected by the Federal Confidentiality of Alcohol and Drug Abuse Patient Records regulations: The Federal rules restrict any use of the information to criminally investigate or prosecute any alcohol or drug abuse patient.[facility] HospitalIn the event this information is protected by the Federal Confidentiality of Alcohol and Drug Abuse Patient Records regulations: The Federal rules restrict any use of the information to criminally investigate or prosecute any alcohol or drug abuse patient.[facility] HospitalIn the event this information is protected by the Federal Confidentiality of Alcohol and Drug Abuse Patient Records regulations: The Federal rules restrict any use of the information to criminally investigate or prosecute any alcohol or drug abuse patient.[facility] HospitalIn the event this information is protected by the Federal Confidentiality of Alcohol and Drug Abuse Patient Records regulations: The Federal rules restrict any use of the information to criminally investigate or prosecute any alcohol or drug abuse patient.[facility] HospitalIn the event this information is protected by the Federal Confidentiality of Alcohol and Drug Abuse Patient Records regulations: The Federal rules restrict any use of the information to criminally investigate or prosecute any alcohol or drug abuse patient.[facility] HospitalIn the event this information is protected by the Federal Confidentiality of Alcohol and Drug Abuse Patient Records regulations: The Federal rules restrict any use of the information to criminally investigate or prosecute any alcohol or drug abuse patient.[facility] HospitalIn the event this information is protected by the Federal Confidentiality of Alcohol and Drug Abuse Patient Records regulations: The Federal rules restrict any use of the information to criminally investigate or prosecute any alcohol or drug abuse patient.[facility] HospitalIn the event this information is protected by the Federal Confidentiality of Alcohol and Drug Abuse Patient Records regulations: The Federal rules restrict any use of the information to criminally investigate or prosecute any alcohol or drug abuse patient.[facility] HospitalIn the event this information is protected by the Federal Confidentiality of Alcohol and Drug Abuse Patient Records regulations: The Federal rules restrict any use of the information to criminally investigate or prosecute any alcohol or drug abuse patient.[facility] HospitalIn the event this information is protected by the Federal Confidentiality of Alcohol and Drug Abuse Patient Records regulations: The Federal rules restrict any use of the information to criminally investigate or prosecute any alcohol or drug abuse patient.[facility] HospitalIn the event this information is protected by the Federal Confidentiality of Alcohol and Drug Abuse Patient Records regulations: The Federal rules restrict any use of the information to criminally investigate or prosecute any alcohol or drug abuse patient.[facility] HospitalIn the event this information is protected by the Federal Confidentiality of Alcohol and Drug Abuse Patient Records regulations: The Federal rules restrict any use of the information to criminally investigate or prosecute any alcohol or drug abuse patient.[facility] HospitalIn the event this information is protected by the Federal Confidentiality of Alcohol and Drug Abuse Patient Records regulations: The Federal rules restrict any use of the information to criminally investigate or prosecute any alcohol or drug abuse patient.[facility] HospitalIn the event this information is protected by the Federal Confidentiality of Alcohol and Drug Abuse Patient Records regulations: The Federal rules restrict any use of the information to criminally investigate or prosecute any alcohol or drug abuse patient.[facility] Reason for Visit (unrecogniz ed section and content) Reason Comments PT Discharge Specialty Diagnoses / Procedures Referred By Trace flores Referred To Contact [facility] Diagnoses Contusion of scalp, subsequent encounter Fall, subsequent encounter Proximal leg weakness Procedures CONSULT TO PHYSICAL THERAPY PHYSICAL THERAPY [facility] HIGH COMPLEX 45 MINS Dallas Reed MD [address] [place] [address] Phone: tel: fax: [facility] [address] [place] [address] Referral ID Status Reason Start Date Expiration Date Visits Requested Visits Authorized [id number] Authorized PCP Requested Referral Auto-Generate d Referral [...] unspecified type Procedures CONSULT TO GASTROENTEROLOGY OFFICE/OUTPATIENT [facility] MDM 60-74 MINUTES Dallas Reed MD [address] [place] [address] Referral ID Status Reason Start Date Expiration Date V isits Requested Visits Authorized [id number] Closed PCP Requested Referral 2023 2024 1 [...] Comments Hospital F/U Reason Onset Date Comments [facility] 06/22/2024 Engagement Call Reason Comments ER F/U Reason Onset Date Comments [facility] 07/22/2024 Chronic Disease Management Routine Call Reason Onset Date Comments [facility] 07/24/2024 Chronic Disease Management Routine Call Reason Comments Surgical Clearance Forms Reason Onset Date Comments [facility] 08/24/2024 Chronic Disease Management Routine Call Reason Onset Date Comments [facility] 08/28/2024 Chronic Disease Management Routine Call Reason [...] January 12, 2025 End: January 12, 2025 Remote Broadcast Engineer Relationship Specialty Start Date End Date Dallas Reed MD [address] [place], [place] [id number] PCP - General Internal Medicine 02/10/18 Denver Elizalde, telegraph repeater technicianEquine Internship Internal Medicine 02/05/21 Remote Broadcast Engineer Relationship Specialty Start Date End Date Dallas Reed MD [address] [place] [address] PCP - General Internal Medicine 02/10/18 Denver Elizalde, telegraph repeater technicianEquine Internship Internal Medicine 02/05/21 Remote Broadcast Engineer Relationship Specialty Start Date End Date Dallas Reed MD [address] [facility] [place] [address] PCP - General Internal Medicine 02/10/18 Denver Elizalde, telegraph repeater technicianEquine Internship Internal Medicine 02/05/21 Remote Broadcast Engineer Relationship Specialty Start Date End Date Dallas Reed MD [address] [facility] [place] [address] PCP - General Internal Medicine 02/10/18 Denver Elizalde, telegraph repeater technicianEquine Internship Internal Medicine 02/05/21 Remote Broadcast Engineer Relationship Specialty Start Date End Date Dallas Reed MD [address] [facility] [place] [address] PCP - General Internal Medicine 02/10/18 Denver Elizalde, telegraph repeater technicianEquine Internship Internal Medicine 02/05/21 Remote Broadcast Engineer Relationship Specialty Start Date End Date Dallas Reed MD [address] [facility] [place] [address] PCP - General Internal Medicine 02/10/18 Denver Elizalde, telegraph repeater technicianEquine Internship Internal Medicine 02/05/21 Remote Broadcast Engineer Relationship Specialty Start Date End Date Dallas Reed MD [address] [facility] [place] [address] PCP - General Internal Medicine 02/10/18 Denver Elizalde, telegraph repeater technicianEquine Internship Internal Medicine 02/05/21 Remote Broadcast Engineer Relationship Specialty Start Date End Date Dallas Reed MD [address] [facility] [place] [address] PCP - General Internal Medicine 02/10/18 Fide Goff, telegraph repeater technicianEquine Internship Internal Medicine 02/05/21 Remote Broadcast Engineer Relationship Specialty Start Date End Date Dallas Reed MD [address] [facility] [place] [address] PCP - General Internal Medicine 02/10/18 Fide Goff, telegraph repeater technicianEquine Internship Internal Medicine 02/05/21 Remote Broadcast Engineer Relationship Specialty Start Date End Date Dallas Reed MD [address] [facility] [place] [address] PCP - General Internal Medicine 02/10/18 Fide Goff, telegraph repeater technicianEquine Internship Internal Medicine 02/05/21 Remote Broadcast Engineer Relationship Specialty Start Date End Date Dallas Reed MD [address] [facility] [place] [address] PCP - General Internal Medicine 02/10/18 Fide Goff, telegraph repeater technicianEquine Internship Internal Medicine 02/05/21 Team Status: Active Member [...] Perez MD Attending Provider, Referring Provider Active Remote Broadcast Engineer Relationship Specialty Start Date End Date Dallas Reed MD [address] [facility] [place] [address] PCP - General Internal Medicine 02/10/18 Fide Goff, telegraph repeater technicianEquine Internship Internal Medicine 02/05/21 Remote Broadcast Engineer Relationship Specialty Start Date End Date Dallas Reed MD [address] [facility] [place] [address] PCP - General Internal Medicine 02/10/18 Fide Goff, telegraph repeater technicianEquine Internship Internal Medicine 02/05/21 Team Status: Inactive Member [...] Dr. Dieter Christianson MD Other Provider Active Remote Broadcast Engineer Relationship Specialty Start Date End Date Dallas Reed MD [address] [facility] [place], [place] [address] PCP - General Internal Medicine 02/10/18 Fide Goff, telegraph repeater technicianEquine Internship Internal Medicine 02/05/21 Remote Broadcast Engineer Relationship Specialty Start Date End Date Dallas Reed MD [address] [facility] [place], [place] [address] PCP - General Internal Medicine 02/10/18 Fide Goff, telegraph repeater technicianEquine Internship Internal Medicine 02/05/21 Team Status: Active Member Role Status Dates Dr. Dallas Reed MD Primary Care Provider Active Dr. Donato Longoria MD Attending Provider Active Dr. Omid Perez MD Referring Provider Active Team Status: Inactive Member Role Status Dates Dr. Dallas Reed MD Primary Care Provider Active Benita PREEZ PASheelaC Attending Provider, Referring Provider Active Remote Broadcast Engineer Relationship Specialty Start Date End Date Dallas Reed MD [address] [facility] [place], [place] [id number] PCP - General Internal Medicine 02/10/18 Fide Goff, telegraph repeater technicianEquine Internship Internal Medicine 02/05/21 Team Status: Inactive Member Role Status Dates Dr. Dallas Reed MD Primary Care Provider Active Dr. Jovanny Rodriguez MD Attending Provider, Referring Provider Active Remote Broadcast Engineer Relationship Specialty Start Date End Date Dallas Reed MD [address] [facility] [place] [address] PCP - General Internal Medicine 02/10/18 Fide Goff, telegraph repeater technicianEquine Internship Internal Medicine 02/05/21 Remote Broadcast Engineer Relationship Specialty Start Date End Date Dallas Reed MD [address] [facility] [place] [address] PCP - General Internal Medicine 02/10/18 Fide Goff, telegraph repeater technicianEquine Internship Internal Medicine 02/05/21 Remote Broadcast Engineer Relationship Specialty Start Date End Date Dallas Reed MD [address] [facility] [place] [address] PCP - General Internal Medicine 02/10/18 Fide Goff, telegraph repeater technicianEquine Internship Internal Medicine 02/05/21 Remote Broadcast Engineer Relationship Specialty Start Date End Date Dallas Reed MD [address] [facility] [place] [address] PCP - General Internal Medicine 02/10/18 Fide Goff, telegraph repeater technicianEquine Internship Internal Medicine 02/05/21 Remote Broadcast Engineer Relationship Specialty Start Date End Date Dallas Reed MD [address] [facility] [place] [address] PCP - General Internal Medicine 02/10/18 Fide Goff, telegraph repeater technicianEquine Internship Internal Medicine 02/05/21 Remote Broadcast Engineer Relationship Specialty Start Date End Date Dallas Reed MD [address] [facility] [place] [address] PCP - General Internal Medicine 02/10/18 Fide Goff, telegraph repeater technicianEquine Internship Internal Medicine 02/05/21 Remote Broadcast Engineer Relationship Specialty Start Date End Date Dallas Reed MD [address] [facility] [place] [address] PCP - General Internal Medicine 02/10/18 Fide Goff, telegraph repeater technicianEquine Internship Internal Medicine 02/05/21 Remote Broadcast Engineer Relationship Specialty Start Date End Date Dallas Reed MD [address] [facility] [place] [address] PCP - General Internal Medicine 02/10/18 Fide Goff, telegraph repeater technicianEquine Internship Internal Medicine 02/05/21 Remote Broadcast Engineer Relationship Specialty Start Date End Date Dallas Reed MD [address] [facility] [place] [address] PCP - General Internal Medicine 02/10/18 Fide Goff, telegraph repeater technicianEquine Internship Internal Medicine 02/05/21 Remote Broadcast Engineer Relationship Specialty Start Date End Date Dallas Reed MD [address] [facility] [place] [address] PCP - General Internal Medicine 02/10/18 Fide Goff, telegraph repeater technicianEquine Internship Internal Medicine 02/05/21 Remote Broadcast Engineer Relationship Specialty Start Date End Date Dallas Reed MD [address] [facility] [place] [address] PCP - General Internal Medicine 02/10/18 Fide Goff, telegraph repeater technicianEquine Internship Internal Medicine 02/05/21 Remote Broadcast Engineer Relationship Specialty Start Date End Date Dallas Reed MD [address] [facility] [place] [address] PCP - General Internal Medicine 02/10/18 Fide Goff, telegraph repeater technicianEquine Internship Internal Medicine 02/05/21 Remote Broadcast Engineer Relationship Specialty Start Date End Date Dallas Reed MD [address] [facility] [place] [address] PCP - General Internal Medicine 02/10/18 Fide Goff, telegraph repeater technicianEquine Internship Internal Medicine 02/05/21 Remote Broadcast Engineer Relationship Specialty Start Date End Date Dallas Reed MD [address] [facility] [place] [address] PCP - General Internal Medicine 02/10/18 Fide Goff, telegraph repeater technicianEquine Internship Internal Medicine 02/05/21 Darya Borden, LACQUER COATER.ROLLS MILL OPERATOR [address] [facility] [place] [address] Metal Hardener Internal Medicine 08/28/24 Remote Broadcast Engineer Relationship Specialty Start Date End Date Dallas Reed MD [address] [facility] [place] [address] PCP - General Internal Medicine 02/10/18 Fide Goff, telegraph repeater technicianEquine Internship Internal Medicine 02/05/21 Darya Borden, LACQUER COATER.ROLLS MILL OPERATOR [address] [facility] [place] [address] Metal Hardener Internal Medicine 08/28/24 Remote Broadcast Engineer Relationship Specialty Start Date End Date Dallas Reed MD [address] [facility] [place] [address] PCP - General Internal Medicine 02/10/18 Fide Goff, telegraph repeater technicianEquine Internship Internal Medicine 02/05/21 Darya Borden, LACQUER COATER.ROLLS MILL OPERATOR [address] [facility] [place] [address] Metal Hardener Internal Medicine 08/28/24 Remote Broadcast Engineer Relationship Specialty Start Date End Date Dallas Reed MD [address] [place] [address] PCP - General Internal Medicine 02/10/18 Darya Borden, LACQUER COATER.ROLLS MILL OPERATOR [address] [place] [address] Metal Hardener Internal Medicine 08/28/24 Remote Broadcast Engineer Relationship Specialty Start Date End Date Dallas Reed MD [address] [place] [address] PCP - General Internal Medicine 02/10/18 Darya Borden, LACQUER COATER.ROLLS MILL OPERATOR [address] [place] [address] Metal Hardener Internal Medicine 08/28/24 Remote Broadcast Engineer Relationship Specialty Start Date End Date Dallas Reed MD [address] [place] [address] PCP - General Internal Medicine 02/10/18 Darya Borden, LACQUER COATER.ROLLS MILL OPERATOR [address] [place] [address] Metal Hardener Internal Medicine 08/28/24 Remote Broadcast Engineer Relationship Specialty Start Date End Date Dallas Reed MD [address] [place] [address] PCP - General Internal Medicine 02/10/18 Darya Borden, LACQUER COATER.ROLLS MILL OPERATOR [address] [place] [address] Metal Hardener Internal Medicine 08/28/24 Remote Broadcast Engineer Relationship Specialty Start Date End Date Dallas Reed MD [address] [place] [address] PCP - General Internal Medicine 02/10/18 Darya Borden, LACQUER COATER.ROLLS MILL OPERATOR [address] [place] [address] Metal Hardener Internal Medicine 08/28/24 Remote Broadcast Engineer Relationship Specialty Start Date End Date Dallas Reed MD [address] [place] [address] PCP - General Internal Medicine 02/10/18 Darya Borden, LACQUER COATER.ROLLS MILL OPERATOR [address] [place] [address] Metal Hardener Internal Medicine 08/28/24 Remote Broadcast Engineer Relationship Specialty Start Date End Date Dallas Reed MD [address] [place] [address] PCP - General Internal Medicine 02/10/18 Darya Borden, LACQUER COATER.ROLLS MILL OPERATOR [address] [place] [address] Metal Hardener Internal Medicine 08/28/24 Remote Broadcast Engineer Relationship Specialty Start Date End Date Dallas Reed MD [address] [place] [address] PCP - General Internal Medicine 02/10/18 Darya Borden, LACQUER COATER.ROLLS MILL OPERATOR [address] [place] [address] Metal Hardener Internal Medicine 08/28/24 Remote Broadcast Engineer Relationship Specialty Start Date End Date Dallas Reed MD [address] [place] [address] PCP - General Internal Medicine 02/10/18 Darya Borden, LACQUER COATER.ROLLS MILL OPERATOR [address] [place] [address] Metal Hardener Internal Medicine 08/28/24 Remote Broadcast Engineer Relationship Specialty Start Date End Date Dallas Reed MD [address] [place] [address] PCP - General Internal Medicine 02/10/18 Darya Borden, LACQUER COATER.ROLLS MILL OPERATOR [address] [place] [address] Metal Hardener Internal Medicine 08/28/24 Remote Broadcast Engineer Relationship Specialty Start Date End Date Dallas Reed MD [address] [place] [address] PCP - General Internal Medicine 02/10/18 Darya Borden, LACQUER COATER.ROLLS MILL OPERATOR [address] [place] [address] Metal Hardener Internal Medicine 08/28/24 Yessenia Price [facility] [address] [place] [address] Transitional Care Pharmacist Pharmacy 12/04/24 01/04/25 Adriane White, CHRISTIANO [address] [address] Primary Care Warehouse Foreman 12/04/24 Remote Broadcast Engineer Relationship Specialty Start Date End Date Dallas Reed MD [address] [place] [address] PCP - General Internal Medicine 02/10/18 Darya Borden, LACQUER COATER.ROLLS MILL OPERATOR [address] [place] [address] Metal Hardener Internal Medicine 08/28/24 Yessenia Price [facility] [address] [place] [address] Transitional Care Pharmacist Pharmacy 12/04/24 01/04/25 Adriane White, CHRISTIANO [facility] [address] [place] [address] Primary Care Warehouse Foreman 12/04/24 Remote Broadcast Engineer Relationship Specialty Start Date End Date Dallas Reed MD [address] [place] [address] PCP - General Internal Medicine 02/10/18 Darya Borden, LACQUER COATER.ROLLS MILL OPERATOR [address] [place] [address] Metal Hardener Internal Medicine 08/28/24 Yessenia Price [facility] [address] [place] [address] Transitional Care Pharmacist Pharmacy 12/04/24 01/04/25 Adriane White, CHRISTIANO [facility] [address] [place] [address] Primary Care Warehouse Foreman 12/04/24 Remote Broadcast Engineer Relationship Specialty Start Date End Date Dallas Reed MD [address] [place], [place] [address] PCP - General Internal Medicine 02/10/18 Darya Borden, LACQUER COATER.ROLLS MILL OPERATOR [address] [place] [address] Metal Hardener Internal Medicine 08/28/24 [facility] [place] [phone] Transitional Care Pharmacist Pharmacy 12/04/24 01/04/25 Adriane White, CHRISTIANO [facility] [address] [place] [address] Primary Care Warehouse Foreman 12/04/24 Remote Broadcast Engineer Relationship Specialty Start Date End Date Dallas Reed MD [address] [place] [address] PCP - General Internal Medicine 02/10/18 Darya Borden, LACQUER COATER.ROLLS MILL OPERATOR [address] [place] [address] Metal Hardener Internal Medicine 08/28/24 [facility] [address] [place] [address] Transitional Care Pharmacist Pharmacy 12/04/24 01/04/25 Adriane White, CHRISTIANO [facility] [address] [place] [address] Primary Care Warehouse Foreman 12/04/24 Remote Broadcast Engineer Relationship Specialty Start Date End Date Dallas Reed MD [address] [place] [address] PCP - General Internal Medicine 02/10/18 Darya Borden, LACQUER COATER.ROLLS MILL OPERATOR [address] [place] [address] Metal Hardener Internal Medicine 08/28/24 Yessenia Price [facility] [address] [place] [phone] Transitional Care Pharmacist Pharmacy 12/04/24 01/04/25 Adriane White, CHRISTIANO [facility] [address] [place] [phone] Primary Care Warehouse Foreman 12/04/24 Remote Broadcast Engineer Relationship Specialty Start Date End Date Dallas Reed MD [address] [place] [address] PCP - General Internal Medicine 02/10/18 Darya Borden, LACQUER COATER.ROLLS MILL OPERATOR [address] [place] [address] Metal Hardener Internal Medicine 08/28/24 Yessenia Price [facility] [address] [place], [place] [phone] Transitional Care Pharmacist Pharmacy 12/04/24 01/04/25 Adriane White, CHRISTIANO [facility] [address] [place] [phone] Primary Care Warehouse Foreman 12/04/24 Remote Broadcast Engineer Relationship Specialty Start Date End Date Dallas Reed MD [address] [place] [address] PCP - General Internal Medicine 02/10/18 Darya Borden, LACQUER COATER.ROLLS MILL OPERATOR [address] [place] [address] Metal Hardener Internal Medicine 08/28/24 Yessenia Price bell [address] [place] [phone] Transitional Care Pharmacist Pharmacy 12/04/24 01/04/25 Adriane White, RN [facility] [address] [place] [address] Primary Care Warehouse Foreman 12/04/24 Remote Broadcast Engineer Relationship Specialty Start Date End Date Dallas Reed MD [address] [place] [address] PCP - General Internal Medicine 02/10/18 Darya Borden, LACQUER COATER.ROLLS MILL OPERATOR [address] [place], [place] [address] Metal Hardener Internal Medicine 08/28/24 Yessenia Price RPh [address] [place] [phone] Transitional Care Pharmacist Pharmacy 12/04/24 01/04/25 Adriane White, RN [facility] [address] [place] [address] Primary Care Warehouse Foreman 12/04/24 Team Status: Active Member Role Status Dates Dr. Dallas Reed MD Primary Care Provider Active Start: August 23, 2024 Dr. Lraa Fonseca MD Attending Provider Active Start: August [...] November 28, 2024 End: November 28, 2024 Remote Broadcast Engineer Relationship Specialty Start Date End Date Dallas Reed MD [address] [place] [address] PCP - General Internal Medicine 02/10/18 Darya Borden, LACQUER COATER.ROLLS MILL OPERATOR [address] [place] [address] Metal Hardener Internal Medicine 08/28/24 Yessenia Price [facility] [address] [place] [address] Transitional Care Pharmacist Pharmacy 12/04/24 01/04/25 Adriane White, CHRISTIANO [facility] [address] [place] [phone] Primary Care Warehouse Foreman 12/04/24 Remote Broadcast Engineer Relationship Specialty Start Date End Date Dallas Reed MD [address] [place] [address] PCP - General Internal Medicine 02/10/18 Darya Borden, LACQUER COATER.ROLLS MILL OPERATOR [address] [place], [place] [address] Metal Hardener Internal Medicine 08/28/24 Yessenia Price [facility] [address] [place] [address] Transitional Care Pharmacist Pharmacy 12/04/24 01/04/25 Adriane White, CHRISTIANO [facility] [address] [place] [phone] Primary Care Warehouse Foreman 12/04/24 Remote Broadcast Engineer Relationship Specialty Start Date End Date Dallas Reed MD [address] [place] [address] PCP - General Internal Medicine 02/10/18 Darya Borden, LACQUER COATER.ROLLS MILL OPERATOR [address] [place] [address] Metal Hardener Internal Medicine 08/28/24 Yessenia Price, [facility] [address] [place] [phone] Transitional Care Pharmacist Pharmacy 12/04/24 01/04/25 Adriane White, CHRISTIANO [facility] [address] [place] [address] Primary Care Warehouse Foreman 12/04/24 Remote Broadcast Engineer Relationship Specialty Start Date End Date Dallas Reed MD [address] [place] [address] PCP - General Internal Medicine 02/10/18 Darya Borden, LACQUER COATER.ROLLS MILL OPERATOR [address] [place] [address] Metal Hardener Internal Medicine 08/28/24 Adriane White, CHRISTIANO [facility] [address] [place] [phone] Equine Internship 01/02/25 Team Status: Inactive Member Role Status [...] Provider Active Start : February 14, 2025 Remote Broadcast Engineer Relationship Specialty Start Date End Date Dallas Reed MD [address] [place] [address] PCP - General Internal Medicine 02/10/18 Darya Borden, LACQUER COATER.ROLLS MILL OPERATOR [address] [place] [address] Metal Hardener Internal Medicine 08/28/24 Adriane White, CHRISTIANO [facility] [address] [place] [address] Equine Internship 01/02/25 Remote Broadcast Engineer Relationship Specialty Start Date End Date Dallas Reed MD [address] [place] [address] PCP - General Internal Medicine 02/10/18 Darya Borden, LACQUER COATER.ROLLS MILL OPERATOR [address] [place], [place] [address] Metal Hardener Internal Medicine 08/28/24 Adriane White, CHRISTIANO [facility] [address] [place] [address] Equine Internship 01/02/25 Remote Broadcast Engineer Relationship Specialty Start Date End Date Dallas Reed MD [address] [place] [address] PCP - General Internal Medicine 02/10/18 Darya Borden, LACQUER COATER.ROLLS MILL OPERATOR [address] [place], [place] [address] Metal Hardener Internal Medicine 08/28/24 Adriane White, RN [facility] [address] [place] [phone] Equine Internship 01/02/25 Team Status: Inactive Member Role Status Dates Dr. Dallas Reed MD Primary Care Provider Active Start: February 27, 2025 End: February 27, 2025 Dr. Dallas Reed MD Referring Provider Active Start: February 27, 2025 End: February 27, 2025 CHRIS Orellana Attending Provider Active Star t: February 27, 2025 End: February 27, 2025 Remote Broadcast Engineer Relationship Specialty Start Date End Date Dallas Reed [address] [place] [address] PCP - General 07/04/19 Remote Broadcast Engineer Relationship Specialty Start Date End Date Dallas Reed MD [address] [place], [place] [address] PCP - General Internal Medicine 02/10/18 Darya Borden, LACQUER COATER.ROLLS MILL OPERATOR [address] [place] [address] Metal Hardener Internal Medicine 08/28/24 Adriane White, RN [facility] [address] [place] [address] Equine Internship 01/02/25 Remote Broadcast Engineer Relationship Specialty Start Date End Date Dallas Reed [address] [place] [address] PCP - General 07/04/19 Remote Broadcast Engineer Relationship Specialty Start Date End Date Dallas Reed [address] [place] [address] PCP - General 07/04/19 Remote Broadcast Engineer Relationship Specialty Start Date End Date Dallas Reed [address] [place] [address] PCP - General 07/04/19 Remote Broadcast Engineer Relationship Specialty Start Date End Date Dallas Reed [address] [place] [address] PCP - General 07/04/19 Remote Broadcast Engineer Relationship Specialty Start Date End Date Dallas Reed MD [address] [place] [address] PCP - General Internal Medicine 02/10/18 Darya Borden, LACQUER COATER.ROLLS MILL OPERATOR [address] [place] [address] Metal Hardener Internal Medicine 08/28/24 Adriane White, CHRISTIANO [facility] [address] [place] [address] Equine Internship 01/02/25 Remote Broadcast Engineer Relationship Specialty Start Date End Date Dallas Reed MD [address] [place] [address] PCP - General Internal Medicine 02/10/18 Darya Borden, LACQUER COATER.ROLLS MILL OPERATOR [address] [place] [address] Metal Hardener Internal Medicine 08/28/24 Adriane Wihte, CHRISTIANO [facility] [address] [place] [address] Equine Internship 01/02/2503/20 Team Status: Active Member Role/Relationship Status [...] Active S tart: February 14, 2025 Dr. Dsutin Hawk MD Other Provider Active Start : [...] End: May 10, 2025 Mike H Roof INSERTER, INSERTER-C Attending Provider Active S tart: May 10, [...] 2025 End: May 10, 2025 Mike Jay INSERTER, INSERTER-C Attending Provider Active S tart: May 10, 2025 End: May 10, 2025 Team Status: Inactive Member Role/Relationship Status Dates Dr. Dallas Reed MD Primary Care Provider Active Start: May 10, 2025 End: May 10, 2025 Mike Jay INSERTER, INSERTER-C Attending Provider Active S tart: May 10, 2025 End: May 10, 2025 Mike Jay INSERTER, INSERTER-C Referring Provider Active S tart: May 10, 2025 End: May 10, 2025 Remote Broadcast Engineer Relationship Specialty Start Date End Date Dallas eRed MD [address] [place], [place] [address] PCP - General Internal Medicine 02/10/18 Darya Borden, LACQUER COATER.ROLLS MILL OPERATOR [address] [place] [address] Metal Hardener Internal Medicine 08/28/24 Team Status: Inactive Member [...] 2025 End: May 10, 2025 Mike Jay INSERTER, INSERTER-C Attending Provider Active S tart: May 10, 2025 End: May 10, 2025 Team Status: Inactive Member Role/Relationship Status Dates Dr. Dallas Reed MD Primary Care Provider Active Start: May 10, 2025 End: May 10, 2025 Mike Jay INSERTER, INSERTER-C Attending Provider Active S tart: May 10, 2025 End: May 10, 2025 Mike Jay INSERTER, INSERTER-C Referring Provider Active S tart: May 10, [...] 2025 End: May 22, 2025 Mike Jay INSERTER, INSERTER-C Other Provider Active Start : May 21, [...] Active Start: May 21, 2025 Mike Jay INSERTER, INSERTER-C Other Provider Active Start : May 21, [...] Active Start: May 22, 2025 Mike Jay INSERTER, INSERTER-C Other Provider Active Start : May 22, [...] Status: Active Member Role/Relationship Status Dates Dr. Dlalas Reed MD Primary Care Provider Active Start: [...] Active Start: May 22, 2025 Mike Jay INSERTER, INSERTER-C Other Provider Active Start : May 22, 2025 Kylah Arias PA, PA Other Provider Active Start: May 22, 2025 CHRIS Murrell Other Provider Active Start: May 22, 2025 Dr. Olamide Morales MD Other Provider Active St art: May 22, 2025 Dr. Gricel Donald MD Other Provider Active Start: May 22, 2025 Remote Broadcast Engineer Relationship Specialty Start Date End Date Dallas Reed MD [address] [facility] [place] [address] PCP - General Internal Medicine 02/10/18 Darya Borden, LACQUER COATER.ROLLS MILL OPERATOR [address] [facility] [place] [address] Metal Hardener Internal Medicine 08/28/24 Francisco Randolph, telegraph repeater technician Warehouse Foreman 05/23/25 Remote Broadcast Engineer Relationship Specialty Start Date End Date Dallas Reed MD [address] [facility] [place], [place] [address] PCP - General Internal Medicine 02/10/18 Darya Borden, LACQUER COATER.ROLLS MILL OPERATOR [address] [facility] [place], [place] [address] Metal Hardener Internal Medicine 08/28/24 Francisco Randolph, telegraph repeater technician Warehouse Foreman 05/23/25 Remote Broadcast Engineer Relationship Specialty Start Date End Date Dallas Reed MD [address] [facility] [place] [address] PCP - General Internal Medicine 02/10/18 Darya Borden, LACQUER COATER.ROLLS MILL OPERATOR [address] [facility] [place] [address] Metal Hardener Internal Medicine 08/28/24 Francisco Randolph RN Primary Care Warehouse Foreman 05/23/25 Remote Broadcast Engineer Relationship Specialty Start Date End Date Dallas Reed MD [address] [facility] [place] [address] PCP - General Internal Medicine 02/10/18 Darya Borden, LACQUER COATER.ROLLS MILL OPERATOR [address] [facility] [place] [address] Metal Hardener Internal Medicine 08/28/24 Francisco Randolph, telegraph repeater technician Warehouse Foreman 05/23/25 Team Status: Inactive Member Role/Relationship Status Dates Dr. Dallas Reed MD Primary Care Provider Active Start: June 05, 2025 End: June 05, 2025 Dr. Dallas Reed MD Referring Provider Active Start: June 05, 2025 End: June 05, 2025 Mike Jay INSERTER, INSERTER-C Attending Provider Active S tart: June 05, [...] 2025 End: May 10, 2025 Mike Jay INSERTER, INSERTER-C Attending physician Active Start: May 10, 2025 End: May 10, 2025 Team Status: Inactive Member Role/Relationship Status Dates Dr. Dallas Reed MD Primary care physician Activ e Start: May 10, 2025 End: May 10, 2025 Mike Jay INSERTER, INSERTER-C Attending physician Active Start: May 10, 2025 End: May 10, 2025 Mike Jay INSERTER, INSERTER-C Referring Provider Active S tart: May 10, [...] Start: May End: May 22, 2025 Dr. Elsiha Eason MD Nurse Practitioner Active S tart: May 21, 2025 End: May 22, 2025 Dr. Jm Wilson MD Nurse Practitioner Active Start: May 21, 2025 End: May 22, 2025 Dr. Sinan Toro MD Nurse Practitioner Active Start: May 21, 2025 End: May 22, 2025 Mike Jay INSERTER, INSERTER-C Nurse Practitioner Active S tart: May 21, [...] Active Start: May 21, 2025 Mike Jay INSERTER, INSERTER-C Nurse Practitioner Active S tart: May 21, [...] Active Start: May 22, 2025 Mike Jay INSERTER, INSERTER-C Nurse Practitioner Active S tart: May 22, [...] Active Start: May 22, 2025 Mike Jay INSERTER, INSERTER-C Nurse Practitioner Active S tart: May 22, [...] 2025 End: June 05, 2025 Mike Jay INSERTER, INSERTER-C Attending physician Active Start: June 05, 2025 End: June 05, 2025 Team Status: Inactive Member Role/Relationship Status Dates Dr. Dallas Reed MD Primary care physician Activ e Start: June 05, 2025 End: June 05, 2025 Mike Jay INSERTER, INSERTER-C Attending physician Active Start: June 05, 2025 End: June 05, 2025 Mike Jay NP INSERTER-C Referring Provider Active S tart: June 05, [...] BE BASED ON THE PRIMARY CLINICAL RECORDS. [facility]. provides no warranty or guarantee of the accuracy or completeness of information in this document.
[2025-06-23] MEDS: Heparin Injection (Vial) 5,000 UNIT/ML VIAL 4000 UNIT IV (21:33)
[2025-06-23] MEDS: HEPARIN/D5w 25,000 UNITS 25,000 UNITS/250 ML IV.SOLN. 7.5 UNITS CONT INF (21:35)
[2025-06-23 21:42] LABS: Magnesium 2.1 mg/dL (1.5-2.2)
[2025-06-23 22:13] LABS: Prothrombin Time (Protime)PT. 15.3 SECONDS (11.7-14.9)
[2025-06-23 22:14] LABS: Partial Thromboplast Time 47.5 Seconds (24.1-36.2)
[2025-06-23 22:44] LABS: Troponin T High Sens 2 HR 1010 ng/L (<=22)
[2025-06-23] MEDS: 0.9% Normal Saline (1000mL) 1,000 ML 75 ML IV (22:48)
[2025-06-24] VITALS (7 sets, daily range): BP systolic 109–132; BP diastolic 69–92; PULSE 60–93; RESP 16–18; TEMP 35.9–37.2; O2SAT 93–98; BMI 19.8
[2025-06-24 01:26] LABS: Troponin T High Sens 4 HR 924 ng/L (<=22)
[2025-06-24 03:59] LABS: Hematocrit 28.5 % (40-54); Hemoglobin 9.5 g/dL (13.0-16.5); Immature Granulocytes Count 0.030 X10^3/uL (0.0-0.0); Mean Corp Hgb Conc 33.3 g/dL (32-36); Mean Corpuscular Volume 89.6 fL (80-94); Mean Platelet Vol. 11.1 fl (6.2-12.0); NRBC Flagged by Analyzer 0 % (0-5); Platelet Count 102 K/mm3 (150-450); RBC Distribution Width CV 15.1 % (11.6-14.6); RBC Distribution Width SD 49.8 fl (35.1-43.9); Red Blood Count 3.18 M/mm3 (4.6-6.2); White Blood Count 4.9 K/mm3 (4.4-11.0)
[2025-06-24 04:21] LABS: Partial Thromboplast Time 104.8 Seconds (24.1-36.2)
[2025-06-24 04:31] LABS: AST(SGOT) 82 U/L (<=37); Alanine Aminotransfer ALT/SGPT 16 U/L (<=46); Albumin, Serum 3.5 g/dL (3.4-4.8); Alkaline Phosphatase 35 U/L (40-129); Anion Gap 12 (5-15); BUN 42 mg/dL (4-19); BUN/Creat Ratio 27.8 RATIO (10-20); Calcium,Total 8.9 mg/dL (7.6-11.0); Carbon Dioxide 21.6 mmol/L (21.0-32.0); Chloride 106 mmol/L (98-108); Estimated Creatinine Clearance 29.65 ml/min (50-250); Free T3 2.0 pg/mL (2.18-3.98); Globulin 2.8 g/dL (2.2-4.2); Glucose 96 mg/dL (70-99); Potassium 3.9 mmol/L (3.3-5.1)
[2025-06-24 05:00] LABS: Cholesterol 117 mg/dL (<=200); Low Density Lipoprotein Calc. 63 mg/dL; Triglycerides 64 mg/dL; Very Low Density Lipoprotein 13 mg/dL (5-40); cholesterol:hdl ratio screen 2.86
--- NOTE | 2025-06-24 05:55 | ECHOL_ITS ---
Reason For Study Reason For Study: NSTEMI Procedure This was a limited 2D transthoracic echocardiogram. The patient was scanned supine. Exam performed portable in patient room. Left Ventricle Normal LV size. Mild to moderate segmental systolic dysfunction (see wall motion). The left ventricular ejection fraction is 45 %. Infero-Basal: Severely Hypokinetic. Mid-Inferior: Hypokinetic. [place] : Hypokinetic. The rest of the wall segments are normal. Right Ventricle Normal right ventricle. Normal systolic function. Atria The left atrium is mildly enlarged. Normal right atrium. Mitral Valve There is mild mitral annular calcification. Bileaflet diffuse mitral valve thickening. Mild (1+) eccentric mitral valve insufficiency. Tricuspid Valve Normal tricuspid valve. Mild (1+) tricuspid valve insufficiency. Pulmonary artery systolic pressure is 27 mmHg. Aortic Valve Trisinus/trileaflet aortic valve. Mild diffuse aortic valve thickening. Pulmonic Valve Normal pulmonic valve. Great Vessels Mildly calcified aortic root. The pulmonary artery is normal size. Inferior vena cava collapse with respiration. Pericardium/Pleural No pericardial effusion. MMode/2D Measurements & Calculations LVIDd: 5.0 cm IVSd: 1.1 cm LAV(MOD- bp): 49.3 ml LVIDs: 4.0 cm LVPWd: 1.1 cm LAV(MOD- bp) Indexed: 28.5 ml/m2 RVDd: 4.4 cm FS: 20.3 % LAV(MOD- sp2): 48.9 ml LAV(MOD- sp4): 49.8 ml SV(MOD- sp4): 46.1 ml LVAd ap4: 32.3 cm2 LVAd ap2: 28.3 cm2 LVLd ap4: 9.6 cm LVLd ap2: 9.0 cm SI(MOD- sp4): 26.7 ml/m2 EDV(MOD-sp4): 92.2 ml EDV(MOD-sp2): 73.4 ml EDV(sp4-el): 92.5 ml EDV(sp2-el): 75.6 ml LVAs ap4: 21.8 cm2 LVAs ap2: 19.6 cm2 LVLs ap4: 8.7 cm LVLs ap2: 8.0 cm ESV(MOD-sp4): 46.1 ml ESV(MOD-sp2): 40.8 ml ESV(sp4-el): 46.7 ml ESV(sp2-el): 40.7 ml EF(MOD-sp4): 50.0 % EF(MOD-sp2): 44.5 % EF(sp4-el): 49.5 % SV(MOD-sp2): 32.6 ml SV(sp4-el): 45.8 ml Ao sinus diam: 3.6 cm SI(MOD-sp2): 18.9 ml/m2 LA dimension(2D): 4.3 cm LA A4 area: 20.1 cm2 RA A4 area: 17.0 cm2 TAPSE: 2.3 cm Time Measurements MV dec time: 0.18 sec Doppler Measurements & Calculations MV E max yunior: 105.8 cm/sec Lat Peak E' Yunior: 9.9 cm/sec Med Peak E' Yunior: 6.3 cm/sec MV A max yunior: 65.8 cm/sec E/E' lat: 10.7 E/E' med: 16.8 MV E/A: 1.6 MV dec slope: 586.1 cm/sec2 TR max yunior: 243.2 cm/sec TR max P.7 mmHg ECHO/Echo, Limited Study Interpretation Summary The left ventricular ejection fraction is 45 %. The left atrium is mildly enlarged. Normal LV size. Mild to moderate segmental systolic dysfunction (see wall motion). Infero-Basal: Severely Hypokinetic. Mid-Inferior: Hypokinetic [place] : Hypokinetic. Ordering Physician: Margy Stark Referring Physician: Dallas Reed M.D. Performed By: Shirin Ya RDCS
[2025-06-24] MEDS: NIFEdipine 60 MG Tablet PO (08:58)
[2025-06-24 10:21] LABS: Partial Thromboplast Time 49.0 Seconds (24.1-36.2)
--- NOTE | 2025-06-24 14:40 | PN_ITS ---
Subjective Subjective Patient seen and examined with his nurse by his bedside. He had no active complaints. He was admitted with complaint of chest pain and has been managed for non-STEMI. Review of systems otherwise negative. He denies any chest pain right now. He has remained hemodynamically stable. Objective Data Objective Data Vital Signs: Vital Signs Temp Pulse Resp BP Pulse Ox O2 Del Method 97.8 F 74 18 109/73 98 Room Air 06/24/25 14:21 06/24/25 14:21 06/24/25 14:21 06/24/25 14:21 06/24/25 14:21 06/24/25 14:21 Oxygen Delivery Method Room Air Weight: 130 lb 1.164 oz Body Mass Index (BMI) 19.8 Intake & Output: Intake and Output for Last 24 Hours 06/22/25 06/23/25 06/24/25 23:59 23:59 23:59 Intake Total 0 / 0 1297.70 / 1297.70 Output Total 150 / 150 Balance 0 / 0 1147.70 / 1147.70 Medical Nutrition Assessment Dietitian: Malnutrition Criteria Met Start: 06/24/25 12:26 Freq: Status: Active Protocol: Document 06/24/25 12:26 SLA (Rec: 06/24/25 12:26 SLA 10..25.7) Nutrition Malnutrition Evidence of Yes Malnutrition Exists Malnutrition (severe Acute Illness/Injury ): Evidenced By Suboptimal Energy Intake (Severe),Weight Loss (Moderate ),Physical Changes (Moderate) Clinical Problem Acute Disease or Injury Related Malnutrition Etiology related to inadequate energy intake Signs/Symptoms as evidenced by <75% po intake and 4.6% unplanned wt loss x 1 month and has muscle wasting/fat loss throughout body. Status Active Problem Recommendation Dietitian Continue liberal regular diet as ordered Recommendations/ Add fortified foods w/ meals as able Changes Will order 4 oz EPHP 4x/day w/ medpass for increased nutrition if consumed. Continue to follow and monitor for changes in pt nutritional status and make additional rec as indicated . Lab / Micro Data 06/24/25 03:36 06/24/25 03:36 Labs: Laboratory Results - last 24 hr 06/23/25 19:25: WBC 5.8, RBC 3.43 L, Hgb 10.4 L, Hct 30.7 L, MCV 89.5, MCH 30.3, MCHC 33.9, RDW Std Deviation 49.8 H, RDW Coeff of Erma 15.2 H, Plt Count 100 L, MPV 10.5, Immature Gran % (Auto) 0.300, Neut % (Auto) 76.2 H, Lymph % (Auto) 12.8 L, [place] % (Auto) 8.0, Eos % (Auto) 2.2, Baso % (Auto) 0.5, Absolute Neuts (auto) 4.4, Absolute Lymphs (auto) 0.74 L, Nucleated RBC % 0, Sodium 139, Potassium 4.0, Chloride 105, Carbon Dioxide 21.2, Anion Gap 13, BUN 45 H, C reatinine 1.58 H, Estim Creat Clear Calc 30.26 L, Est GFR (MDRD) Non-Af 43 L, B UN/Creatinine Ratio 28.2 H, Glucose 90, Calcium 9.4, Magnesium 2.1, Troponin T High Sens 948 H* D, TSH 5.640 H 06/23/25 21:35: PT 15.3 H, INR 1.2, APTT 47.5 H, Troponin T Hi Sens 2 Hr 1010 H* 06/24/25 00:40: Troponin T Hi Sens 4Hr 924 H* 06/24/25 03:36: WBC 4.9, RBC 3.18 L, Hgb 9.5 L, Hct 28.5 L, MCV 89.6, MCH 29.9, MCHC 33.3, RDW Std Deviation 49.8 H, RDW Coeff of Erma 15.1 H, Plt Count 102 L, MPV 11.1, Immature Gran % (Auto) 0.600, Neut % (Auto) 69.5, Lymph % (Auto) 18.4 L, [place] % (Auto) 9.1, Eos % (Auto) 1.8, Baso % (Auto) 0.6, Absolute Neuts (auto) 3.4, Absolute Lymphs (auto) 0.91, Nucleated RBC % 0, APTT 104.8 H*, Sodium 139, Potassium 3.9, Chloride 106, Carbon Dioxide 21.6, Anion Gap 12, BUN 42 H, C reatinine 1.52 H, Estim Creat Clear Calc 29.65 L, Est GFR (MDRD) Non-Af 45 L, B UN/Creatinine Ratio 27.8 H, Glucose 96, Calcium 8.9, Total Bilirubin 0.63, AST 82 H, ALT 16, Alkaline Phosphatase 35 L, Total Protein 6.2, Albumin 3.5, Globulin 2.8, Albumin/Globulin Ratio 1.3, Triglycerides 64, Cholesterol 117, LDL Cholesterol, Calc 63, VLDL Cholesterol 13, HDL Cholesterol 41, Cholesterol/HDL Ratio 2.86, Free T4 1.10, Free T3 pg/dL 2.0 L 06/24/25 10:01: APTT 49.0 H Radiography Diagnostic Testing: Radiology Impression Chest X-Ray 06/23/25 20:15 IMPRESSION: Chronic interstitial changes in both lung guy without significant change since the previous study Reading Location: [facility] Rhythm Strip Rhythm Strip: Sinus Rhythm Rate: 91 Ectopy: None Physical Exam Const alert, oriented x3 and no apparent distress General Appearance: cooperative HEENT normocephalic, head/scalp atraumatic, moist oral mucous membranes and oropharynx normal Eyes EOMs intact bilaterally Neck supple and no JVD Lymph Lymphatic: no lymphedema noted Resp normal respiratory effort, normal air movement and clear to auscultation bilaterally Cardio regular rate, regular rhythm, S1 normal heart sound, S2 normal heart sound and no murmurs GI normal to inspection, nondistended, normoactive bowel sounds, soft to palpation, non-tender and non-distended Extremity normal capillary refill, no clubbing, cyanosis or edema and no calf tenderness General Extremity: no tenderness to palpation of joints or extremities Skin General Skin Exam: no breakdown Neuro CN's II-XII intact bilaterally and no focal motor deficits Motor Exam: general weakness Psych thought process normal, cooperative and affect normal Appearance: appropriate Assessment & Plan Assessment/Plan (1) Non-ST elevated myocardial infarction: PLAN: Plan #Nonstemi * Patient admitted with a complaint of chest pain. EKG showed no acute ST changes. Troponins were elevated. * He was admitted and Christina for the same condition but he did not have a cardiac cath on account of elevated creatinine. * Cardiology consulted. Currently on heparin drip. On aspirin and sublingual nitroglycerin as well as IV morphine as needed. * On ezetimibe and nexletol. Will benefit from cardiac cath tomorrow. #History of heart failure preserved ejection fraction: Has known EF of 40 to 45% and recent echo showed inferior hypokinesis with mild mitral regurgitation. On Coreg and hydralazine as well as Lasix and losartan. On Nexletol. #History of abdominal aortic aneurysm: S/p repair in 2022. Follow-up with vascular surgery on outpatient basis as needed. #CKD stage IIIa: Creatinine is around baseline will monitor. #Hypertension: On losartan and nifedipine as well as carvedilol and hydralazine #Hyperlipidemia: On ezetimibe and bempedoic acid. #Hypothyroidism: on synthroid. #History of right carotid artery stenosis: S/p right carotid endarterectomy. On aspirin and ezetimibe #History of BPH: On doxazosin. #History of osteoarthritis: S/p lumbar laminectomy x 2. Stable. DVT prophylaxis: Currently on heparin drip Charges/Coding Visit Charges Inpatient E&M: 66365 Subs Hosp L2
--- NOTE | 2025-06-24 16:02 | PCM.CONS.C ---
Assessment & Plan Assessment/Plan (1) Non-ST elevated myocardial infarction: (2) Abnormal stress test: (3) Paroxysmal atrial flutter: (4) LV dysfunction: PLAN: Plan Continue IV heparin, aspirin, Coreg and losartan. Recommend adding statin as well. Treatment options including coronary angiography was discussed with the patient. We will proceed with coronary angiography tomorrow. Patient understands the risks and benefits and prefers this approach as well. HPI Consult Data Date of Consult: 06/24/25 HPI Narrative Reason for Consultation: Palpitations HPI Narrative: CAROLINA SY, is a 85 M who presents [with palpitations. He denies any chest pain. However it appears that he admitted to having some chest discomfort along with the palpitations to the ER physician and to the hospitalist. Patient had an abnormal stress test and was being considered for a heart cath as an outpatient. He does have CKD but his creatinine currently appears to be close to his baseline. Patient's troponin this admission was elevated as well. He is currently resting comfortably without any cardiac symptoms.] [facility] Medical History Elevated TSH [place] (acute kidney injury) Acute exacerbation of chronic heart failure Non-ST elevation AR (NSTEMI) New onset atrial flutter Type II endoleak of aortic graft Chronic renal failure, stage 3 (moderate) Spigelian hernia Wears hearing aid Wears glasses History of steroid therapy Arthritis History of renal disease TIA (transient ischemic attack) Ataxia History of echocardiogram Easy bruising History of IBS Former smoker History of stress test Cardiology follow-up encounter History of irregular heartbeat Preop cardiovascular exam Stenosis of right internal carotid artery Abdominal aortic 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 Essential hypertension Lumbar disc disease 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 Hyperlipidemia Diverticulosis Pre-operative cardiovascular examination Anemia 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, NYHA class 2 RSV (respiratory syncytial virus pneumonia) Shortness of breath Cough productive of purulent sputum Home Medications ?Medication ?Instructions ?Recorded ?Last Taken ?Type multivitamin 1 tab PO DAILY supplement 05/18/19 06/23/25 History ascorbic acid (vitamin C) 500 mg 1,000 mg PO DAILY supplement 02/14/20 06/22/25 History capsule doxazosin 8 mg tablet 8 mg PO QHS prostate 05/23/24 06/22/25 History hydralazine 100 mg tablet 100 mg PO TID blood pressure 05/23/24 06/23/25 History magnesium oxide 400 mg (241.3 mg 400 mg PO DAILY supplement 05/23/24 06/23/25 History magnesium) tablet ezetimibe 10 mg tablet 10 mg PO DAILY BP 07/11/24 06/23/25 History levothyroxine 25 mcg tablet 25 mcg PO DAILY [id number] 11/28/24 06/23/25 History cholecalciferol (vitamin D3) 125 125 mcg PO DAILY vitamin 01/12/25 06/23/25 History mcg (5,000 unit) tablet (Vitamin D3) ferrous sulfate 325 mg (65 mg 325 mg PO DAILY iron replacement 01/12/25 06/23/25 History iron) tablet (Feosol) nifedipine 60 mg tablet,extended 60 mg PO DAILY blood pressure 01/12/25 06/23/25 History release carvedilol 6.25 mg tablet 6.25 mg PO BID BP 05/21/25 Unknown History furosemide 20 mg tablet 20 mg PO DAILY MD ordered 05/21/25 06/23/25 History losartan 50 mg tablet 50 mg PO QDAY md ORDERED 06/05/25 06/23/25 History aspirin 81 mg chewable tablet 81 mg PO ONCE md ordered #90 tabs 06/07/25 06/23/25 Rx Allergy/AdvReac Type Severity Reaction Status Date / Time lisinopril Allergy Intermediate Rash Verified 06/23/25 18:32 atorvastatin calcium (From Allergy Other Verified 06/23/25 18:32 Lipitor) clonidine Allergy Unknown Verified 06/23/25 18:32 rosuvastatin calcium (From Allergy Other Verified 06/23/25 18:32 Crestor) Zjzybep-PHW-MhW Reductase Allergy Other Verified 06/23/25 18:32 Inhibitor (Vdobydg-Mby-Hvp Reductase Inhibitor) Family History Father Lung cancer Liver cancer Mother Oral cancer Surgical History S/P spigelian hernia repair, follow-up exam S/P AAA repair (~02/2025) History of right-sided carotid endarterectomy Hx of cataract surgery Hx of appendectomy History of tonsillectomy History of back surgery History of colonoscopy History of blepharoplasty History of inguinal hernia repair History of umbilical hernia repair 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 Social History household members: spouse Smoking Status: Former smoker second hand exposure: No alcohol intake: never substance use type: does not use caffeine: Yes Type: coffee Number of servings: 2 Physical Exam Const alert and oriented x3 HEENT normocephalic Eyes no scleral icterus Resp normal respiratory effort Charges/Coding Visit Charges Inpatient E&M: 49040 Init Hosp L1 Objective Data Vital Signs: Vital Signs Temp Pulse Resp BP Pulse Ox O2 Del Method 97.8 F 74 18 109/73 98 Room Air 06/24/25 14:21 06/24/25 14:21 06/24/25 14:21 06/24/25 14:21 06/24/25 14:21 06/24/25 14:21 Oxygen Delivery Method Room Air Weight: 130 lb 1.164 oz Body Mass Index (BMI) 19.8 Intake & Output: Intake and Output for Last 24 Hours 06/22/25 06/23/25 06/24/25 23:59 23:59 23:59 Intake Total 0 / 0 1297.70 / 1297.70 Output Total 150 / 150 Balance 0 / 0 1147.70 / 1147.70 Lab / Micro Data 06/24/25 03:36 06/24/25 03:36 Labs: Laboratory Results - last 24 hr 06/23/25 19:25: WBC 5.8, RBC 3.43 L, Hgb 10.4 L, Hct 30.7 L, MCV 89.5, MCH 30.3, MCHC 33.9, RDW Std Deviation 49.8 H, RDW Coeff of Erma 15.2 H, Plt Count 100 L, MPV 10.5, Immature Gran % (Auto) 0.300, Neut % (Auto) 76.2 H, Lymph % (Auto) 12.8 L, [place] % (Auto) 8.0, Eos % (Auto) 2.2, Baso % (Auto) 0.5, Absolute Neuts (auto) 4.4, Absolute Lymphs (auto) 0.74 L, Nucleated RBC % 0, Sodium 139, Potassium 4.0, Chloride 105, Carbon Dioxide 21.2, Anion Gap 13, BUN 45 H, Creatinine 1.58 H, Estim Creat Clear Calc 30.26 L, Est GFR (MDRD) Non-Af 43 L, BUN/Creatinine Ratio 28.2 H, Glucose 90, Calcium 9.4, Magnesium 2.1, Troponin T High Sens 948 H* D, TSH 5.640 H 06/23/25 21:35: PT 15.3 H, INR 1.2, APTT 47.5 H, Troponin T Hi Sens 2 Hr 1010 H* 06/24/25 00:40: Troponin T Hi Sens 4Hr 924 H* 06/24/25 03:36: WBC 4.9, RBC 3.18 L, Hgb 9.5 L, Hct 28.5 L, MCV 89.6, MCH 29.9, MCHC 33.3, RDW Std Deviation 49.8 H, RDW Coeff of Erma 15.1 H, Plt Count 102 L, MPV 11.1, Immature Gran % (Auto) 0.600, Neut % (Auto) 69.5, Lymph % (Auto) 18.4 L, [place] % (Auto) 9.1, Eos % (Auto) 1.8, Baso % (Auto) 0.6, Absolute Neuts (auto) 3.4, Absolute Lymphs (auto) 0.91, Nucleated RBC % 0, APTT 104.8 H*, Sodium 139, Potassium 3.9, Chloride 106, Carbon Dioxide 21.6, Anion Gap 12, BUN 42 H, Creatinine 1.52 H, Estim Creat Clear Calc 29.65 L, Est GFR (MDRD) Non-Af 45 L, BUN/Creatinine Ratio 27.8 H, Glucose 96, Calcium 8.9, Total Bilirubin 0.63, AST 82 H, ALT 16, Alkaline Phosphatase 35 L, Total Protein 6.2, Albumin 3.5, Globulin 2.8, Albumin/Globulin Ratio 1.3, Triglycerides 64, Cholesterol 117, LDL Cholesterol, Calc 63, VLDL Cholesterol 13, HDL Cholesterol 41, Cholesterol/HDL Ratio 2.86, Free T4 1.10, Free T3 pg/dL 2.0 L 06/24/25 10:01: APTT 49.0 H Rhythm Strip Rhythm Strip: Sinus Rhythm Rate: 91 Ectopy: None Cardiology Labs/Tests 06/23/25 19:25: WBC 5.8, RBC 3.43 L, Hgb 10.4 L, Hct 30.7 L, MCV 89.5, MCH 30.3, MCHC 33.9, Plt Count 100 L, MPV 10.5, Immature Gran % (Auto) 0.300, Neut % (Auto) 76.2 H, Lymph % (Auto) 12.8 L, [place] % (Auto) 8.0, Eos % (Auto) 2.2, Baso % (Auto) 0.5, Absolute Neuts (auto) 4.4, Nucleated RBC % 0, Sodium 139, Potassium 4.0, Chloride 105, Carbon Dioxide 21.2, Anion Gap 13, BUN 45 H, Creatinine 1.58 H, Est GFR (MDRD) Non-Af 43 L, BUN/Creatinine Ratio 28.2 H, Glucose 90, Calcium 9.4, Magnesium 2.1 06/23/25 21:35: PT 15.3 H, INR 1.2, APTT 47.5 H 06/24/25 03:36: WBC 4.9, RBC 3.18 L, Hgb 9.5 L, Hct 28.5 L, MCV 89.6, MCH 29.9, MCHC 33.3, Plt Count 102 L, MPV 11.1, Immature Gran % (Auto) 0.600, Neut % (Auto) 69.5, Lymph % (Auto) 18.4 L, [place] % (Auto) 9.1, Eos % (Auto) 1.8, Baso % (Auto) 0.6, Absolute Neuts (auto) 3.4, Nucleated RBC % 0, APTT 104.8 H*, Sodium 139, Potassium 3.9, Chloride 106, Carbon Dioxide 21.6, Anion Gap 12, BUN 42 H, Creatinine 1.52 H, Est GFR (MDRD) Non-Af 45 L, BUN/Creatinine Ratio 27.8 H, Glucose 96, Calcium 8.9, Total Bilirubin 0.63, Triglycerides 64, Cholesterol 117, VLDL Cholesterol 13, HDL Cholesterol 41, Cholesterol/HDL Ratio 2.86 06/24/25 10:01: APTT 49.0 H Rhythm: EKG: ECHO: Stress Test: Cardiac Cath: PCI: CT Surgery: Holter monitor: EPS: PPM: CXR: Chest CT Scan: Radiography Diagnostic Testing: Radiology Impression Chest X-Ray 06/23/25 20:15 IMPRESSION: Chronic interstitial changes in both lung guy without significant change since the previous study Reading Location: [id number] Risk Score for UA/STEMI Assesmment (YES = 1) Risk Stratification Applicable: No
[2025-06-24 17:12] LABS: Partial Thromboplast Time 57.3 Seconds (24.1-36.2)
[2025-06-24 23:25] LABS: Partial Thromboplast Time 56.6 Seconds (24.1-36.2)
[2025-06-25] VITALS (12 sets, daily range): BP systolic 82–136; BP diastolic 54–77; PULSE 66–83; RESP 16; TEMP 36.1–36.4; O2SAT 91–98; BMI 20.5
[2025-06-25 05:01] LABS: Hematocrit 30.1 % (40-54); Hemoglobin 9.9 g/dL (13.0-16.5); Immature Granulocytes Count 0.010 X10^3/uL (0.0-0.0); Mean Corp Hgb Conc 32.9 g/dL (32-36); Mean Corpuscular Volume 90.1 fL (80-94); Mean Platelet Vol. 10.6 fl (6.2-12.0); NRBC Flagged by Analyzer 0 % (0-5); POSITIVE COUNT YES; Platelet Count 89 K/mm3 (150-450); RBC Distribution Width CV 15.1 % (11.6-14.6); RBC Distribution Width SD 50.1 fl (35.1-43.9); Red Blood Count 3.34 M/mm3 (4.6-6.2); White Blood Count 4.3 K/mm3 (4.4-11.0)
[2025-06-25 05:04] LABS: Differential Indicated SCAN CRITERIA MET
[2025-06-25 05:10] LABS: Partial Thromboplast Time 56.6 Seconds (24.1-36.2)
[2025-06-25 05:30] LABS: Anion Gap 11 (5-15); BUN 37 mg/dL (4-19); BUN/Creat Ratio 23.8 RATIO (10-20); Calcium,Total 8.7 mg/dL (7.6-11.0); Carbon Dioxide 22.1 mmol/L (21.0-32.0); Chloride 103 mmol/L (98-108); Estimated Creatinine Clearance 29.83 ml/min (50-250); Glucose 94 mg/dL (70-99); Potassium 4.1 mmol/L (3.3-5.1)
--- NOTE | 2025-06-25 05:55 | EKG12_ITS ---
Test Reason : AM EKG Blood Pressure : */* mmHG Vent. Rate : 83 BPM Atrial Rate : 83 BPM P-R Int : 160 ms QRS Dur : 92 ms QT Int : 454 ms P-R-T Axes : 90 69 -57 degrees QTcB Int : 533 ms Normal sinus rhythm Left ventricular hypertrophy with repolarization abnormality ( Sokolow-Lindsay , Romhilt-Noguera ) Prolonged QT Abnormal ECG When compared with ECG of 23-Jun-2025 22:48, MANUAL COMPARISON REQUIRED DATA IS UNCONFIRMED Confirmed by ISAIAH LAWTON, AMADOU ([id number]), legal editor TORIE MUKHERJEE ([id number]) on 06/25/2025 8:43:01 AM Referred By: Confirmed By: AMADOU COLON MD
[2025-06-25 06:08] LABS: Differential Comment SCANNED
[2025-06-25] MEDS: NIFEdipine 60 MG Tablet PO (07:21)
--- NOTE | 2025-06-25 08:00 | PN.CARD_ITS ---
Subjective Subjective Patient seen and evaluated. Underwent cardiac catheterization this morning. Objective Data Vital Signs: Vital Signs Temp Pulse Resp BP Pulse Ox O2 Del Method 97.0 F L 83 16 136/77 H 95 Room Air 06/25/25 05:50 06/25/25 05:59 06/25/25 05:50 06/25/25 05:59 06/25/25 05:50 06/25/25 05:50 Oxygen Delivery Method Room Air Weight: 135 lb 2.294 oz Body Mass Index (BMI) 20.5 Intake & Output: Intake and Output for Last 24 Hours 06/23/25 06/24/25 06/25/25 23:59 23:59 23:59 Intake Total 0 / 0 1647.70 / 2047.70 512.29 / 512.29 Output Total 150 / 150 450 / 450 Balance 0 / 0 1497.70 / 1897.70 62.29 / 62.29 Lab / Micro Data 06/25/25 04:44 06/25/25 04:44 Labs: Laboratory Results - last 24 hr 06/24/25 10:01: APTT 49.0 H 06/24/25 16:50: APTT 57.3 H 06/24/25 22:50: APTT 56.6 H 06/25/25 04:44: WBC 4.3 L, RBC 3.34 L, Hgb 9.9 L, Hct 30.1 L, MCV 90.1, MCH 29.6, MCHC 32.9, RDW Std Deviation 50.1 H, RDW Coeff of Erma 15.1 H, Plt Count 89 L, MPV 10.6, Immature Gran % (Auto) 0.200, Neut % (Auto) 68.5, Lymph % (Auto) 17.4 L, [place] % (Auto) 9.2, Eos % (Auto) 4.0, Baso % (Auto) 0.7, Absolute Neuts (auto) 2.9, Absolute Lymphs (auto) 0.74 L, Nucleated RBC % 0, Differential Comment SCANNED, Platelet Estimate MOD DEC, APTT 56.6 H, Sodium 136, Potassium 4.1, Chloride 103, Carbon Dioxide 22.1, Anion Gap 11, BUN 37 H, Creatinine 1.57 H, Estim Creat Clear Calc 29.83 L, Est GFR (MDRD) Non-Af 43 L, BUN/Creatinine Ratio 23.8 H, Glucose 94, Calcium 8.7 Rhythm Strip Rhythm Strip: Sinus Rhythm Rate: 91 Ectopy: None Cardiology Labs/Tests 06/24/25 10:01: APTT 49.0 H 06/24/25 16:50: APTT 57.3 H 06/24/25 22:50: APTT 56.6 H 06/25/25 04:44: WBC 4.3 L, RBC 3.34 L, Hgb 9.9 L, Hct 30.1 L, MCV 90.1, MCH 29.6, MCHC 32.9, Plt Count 89 L, MPV 10.6, Immature Gran % (Auto) 0.200, Neut % (Auto) 68.5, Lymph % (Auto) 17.4 L, [place] % (Auto) 9.2, Eos % (Auto) 4.0, Baso % (Auto) 0.7, Absolute Neuts (auto) 2.9, Nucleated RBC % 0, APTT 56.6 H, Sodium 136, Potassium 4.1, Chloride 103, Carbon Dioxide 22.1, Anion Gap 11, BUN 37 H, C reatinine 1.57 H, Est GFR (MDRD) Non-Af 43 L, BUN/Creatinine Ratio 23.8 H, Glucose 94, Calcium 8.7 Rhythm: EKG: ECHO: Stress Test: Cardiac Cath: PCI: CT Surgery: Holter monitor: EPS: PPM: CXR: Chest CT Scan: Physical Exam Const alert, oriented x3 and no apparent distress General Appearance: cooperative HEENT hearing grossly normal bilaterally Head and Scalp: atraumatic Eyes EOMs intact bilaterally Neck General: normal visual inspection Chest inspection of chest normal and palpation of chest normal Resp normal respiratory effort Auscultation: clear to auscultation bilaterally Cardio regular rate, regular rhythm, S1 normal heart sound and S2 normal heart sound Jugular Venous Distention: JVD GI normal to inspection, nondistended, normoactive bowel sounds Extremity normal capillary refill and no pedal edema Peripheral Pulses: Yes pulses 2+ throughout and femoral pulses present Skin no rashes or lesions noted Neuro oriented x3 and CN's II-XII intact bilaterally Psych Appearance: grossly normal and appropriate Assessment & Plan Assessment/Plan (1) Non-ST elevated myocardial infarction: PLAN: Patient presented with a non-ST elevation myocardial infarction. Underwent a cardiac catheterization today which demonstrated the following: Distal left main with 50% stenosis Severely calcified LAD with proximal 80% stenosis with 3 large diagonal branches in the mid 80% stenosis in the LAD Calcified left circumflex artery which is dominant with mid segment 80% stenosis, Nondominant right coronary artery with proximal 70% stenosis. Based on the above angiographic findings the patient will be referred for coronary bypass surgery. In the meantime we will continue on aspirin, beta- adrienne, high intensity statin. (2) Paroxysmal atrial flutter: PLAN: He does have a history of paroxysmal atrial flutter but appears to be in sinus rhythm at this particular time. (3) Carotid artery stenosis: PLAN: Patient is status post right carotid endarterectomy. (4) S/P AAA repair: PLAN: Patient is status post abdominal aortic aneurysm repair with a stable replacement
--- NOTE | 2025-06-25 08:30 | CL.D_ITS ---
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 DESCRIPTION OF PROCEDURE The patient arrived to the procedure lab. The risks and benefits of the procedure as well as a full description of our services here and current unavailability of surgical backup were fully explained to the patient and/or their significant other prior to the catheterization. The Timeout was completed, verifying the correct patient and procedure. The patient's procedural site was prepped and draped in the usual fashion. Local anesthetic was given subcutaneously to right radial region with Lidocaine 2%. Using a modified Seldinger technique, arterial access was obtained via the right radial artery, a 6Fr sheath was inserted. Left Coronary Artery selective angiography was performed in multiple views using a 5 Fr. 4.0 [place] catheter. Right Coronary Artery selective angiography was then performed in multiple views using a 5 Fr. 4.0 [place] catheter.The arterial sheath was pulled and a TR Band was applied for hemostasis 10 ml of air CORONARY ANGIOGRAPHY DOMINANCE: Left Dominant LEFT HEART ASSESSMENT Left Ventricular Ejection Fraction: by Echo 45 % Abnormal LV wall motion Depressed Left Ventricular systolic function LEFT MAIN: Calcified left main with distal 50% stenosis LEFT ANTERIOR DESCENDING ARTERY: Severely calcified proximal left anterior descending artery with long 80% stenosis. 3 diagonal branches with moderate disease. Mid left anterior descending artery with 80% stenosis present. CIRCUMFLEX ARTERY: Severely calcified dominant vessel with a first small obtuse marginal branch and a large second obtuse marginal branch with a sidebranch with mild disease mid circumflex with an 80% focal stenosis. 3 posterolateral and posterior descending artery vessel noted with moderate disease present. RIGHT CORONARY ARTERY: Nondominant right coronary artery with proximal 70% stenosis COMPLICATIONS No Complications PROCEDURE MEDICATIONS Fentanyl 50 mcg IV Versed 1 mg IV Oxygen: 2 L/min via nasal cannula Aspirin (325mg) 1 Tabs PO @ 06/25/2025 07:35:52 Heparin given IA 06/25/2025 07:48:17 Verapamil 2.5mg, Ntg 100mcgs, 3000 units of Heparin given IA 06/25/2025 07:48:17 SUMMARY OF HEMODYNAMIC DATA Time AIR REST ECG 07:34:05 AO 95/57 (71) SA 07:53:31 Signed By Donato Longoria MD On 06/25/2025 08:30:05 Donato Longoria MD
[2025-06-25] MEDS: Ensure Plus High Protein 120 ML LIQUID PO (11:44)
[2025-06-25] MEDS: BEMPEDOIC ACID 180 MG PO (11:45)
--- NOTE | 2025-06-25 13:29 | NURSING ---
called report to Lul at [facility]. No other questions
--- NOTE | 2025-06-25 14:06 | DS.PCM_ITS ---
Providers Date of Admission: 06/23/25 Date of Discharge: 06/25/25 Primary Care Physician: Dr. Dallas Reed MD Consultations 06/23/25 22:17 Consult: Cardiology Routine Consulting Provider: Beronica Turcios Reason for Consult: Chest Pain, NSTEMI EMERGENT Consult: No MD Notified: Yes Date Notified: 06/23/25 Time Notified: 21:10 Method of Notification: Text Reason For Visit: NSTEMI Diagnosis Discharge Diagnosis (1) Non-ST elevated myocardial infarction: Status: Acute Code(s): I21.4 - Non-ST elevation (NSTEMI) myocardial infarction (2) Paroxysmal atrial flutter: Status: Acute Code(s): I48.92 - Unspecified atrial flutter (3) Carotid artery stenosis: Status: Acute Code(s): I65.29 - Occlusion and stenosis of unspecified carotid artery (4) S/P AAA repair: Status: Acute Code(s): Z98.890 - Other specified postprocedural states; Z86.79 - Personal history of other diseases of the circulatory system Plan #Nonstemi * Patient admitted with a complaint of chest pain. EKG showed no acute ST changes. Troponins were elevated. * He was admitted and [facility] for the same condition but he did not have a cardiac cath on account of elevated creatinine. * Cardiology consulted. Currently on heparin drip. On aspirin and sublingual nitroglycerin as well as IV morphine as needed. * On ezetimibe and nexletol. Will benefit from cardiac cath tomorrow. #History of heart failure preserved ejection fraction: Has known EF of 40 to 45% and recent echo showed inferior hypokinesis with mild mitral regurgitation. On Coreg and hydralazine as well as Lasix and losartan. On Nexletol. #History of abdominal aortic aneurysm: S/p repair in 2022. Follow-up with vascular surgery on outpatient basis as needed. #CKD stage IIIa: Creatinine is around baseline will monitor. #Hypertension: On losartan and nifedipine as well as carvedilol and hydralazine #Hyperlipidemia: On ezetimibe and bempedoic acid. #Hypothyroidism: on synthroid. #History of right carotid artery stenosis: S/p right carotid endarterectomy. On aspirin and ezetimibe #History of BPH: On doxazosin. #History of osteoarthritis: S/p lumbar laminectomy x 2. Stable. DVT prophylaxis: Currently on heparin drip Medications at Discharge Home Medications multivitamin 1 tab PO DAILY supplement 05/18/19 ascorbic acid (vitamin C) 500 mg capsule 1,000 mg PO DAILY supplement 02/14/20 doxazosin 8 mg tablet 8 mg PO QHS prostate 05/23/24 hydralazine 100 mg tablet 100 mg PO TID blood pressure 05/23/24 magnesium oxide 400 mg (241.3 mg magnesium) tablet 400 mg PO DAILY supplement 05/23/24 ezetimibe 10 mg tablet 10 mg PO DAILY BP 07/11/24 levothyroxine 25 mcg tablet 25 mcg PO DAILY [id number] 11/28/24 cholecalciferol (vitamin D3) 125 mcg (5,000 unit) tablet (Vitamin D3) 125 mcg PO DAILY vitamin 01/12/25 ferrous sulfate 325 mg (65 mg iron) tablet (Feosol) 325 mg PO DAILY iron replacement 01/12/25 nifedipine 60 mg tablet,extended release 60 mg PO DAILY blood pressure 01/12/25 carvedilol 6.25 mg tablet 6.25 mg PO BID BP 05/21/25 furosemide 20 mg tablet 20 mg PO DAILY MD ordered 05/21/25 losartan 50 mg tablet 50 mg PO QDAY md ORDERED 06/05/25 aspirin 81 mg chewable tablet 81 mg PO ONCE md ordered #90 tabs 06/07/25 Hospital Course Operations None Procedures Cardiac catheterization Summary of Care Provided Minutes Spent on Discharge: 48 Hospital Course: Patient is an 85-year-old male with a past medical history as outlined was admitted through the ED on 06/23/2025 with complaint of chest pain and palpitations. Chest pain was left-sided and throbbing/aching in nature. He had assisted palpitations but denied any nausea or vomiting or increased sweating. He had been recently admitted and discharged on May 22, 2025 after being treated for A-fib with RVR and acute heart failure exacerbation as well as non- STEMI. His troponins trended upwards during that admission and he was placed on heparin drip and plan was for cardiac cath but due to his impaired kidney function he was to follow-up on outpatient basis for them to evaluate his kidney function for improvement before deciding about the cardiac cath. He subsequently was discharged home but chest pain came back so he came back to the ED where he was found to have initial troponin of 948. EKG showed no acute ST changes. He was admitted and managed for non-STEMI. He was started on heparin drip. Cardiology was consulted. He had cardiac cath on 06/25/2025 which showed severe triple-vessel disease. Decision therefore made to transfer patient to tertiary facility for evaluation for CABG. Work accepted at [facility] to the service of the hospitalist, and to be evaluated by Dr. Lloyd at the CT surgeon was informed of the patient by senior technical specialist Dr. Longoria. Patient was therefore transferred to [facility] on 06/25/2025. Patient seen and examined prior to the transfer. He denied any recurrence of the chest pain. Review of systems otherwise negative. Labs and vitals reviewed. Home medication reviewed and reconciled. He had no active complaints. Labs and vitals reviewed Physical Exam Const alert, oriented x3 and no apparent distress General Appearance: cooperative, comfortable and well kempt HEENT normocephalic, head/scalp atraumatic, hearing grossly normal bilaterally, moist oral mucous membranes and oropharynx normal Mouth: oral and palatal mucosa normal Eyes EOMs intact bilaterally and conjunctivae normal Neck supple and no JVD Lymph Lymphatic: no lymphedema noted Resp normal respiratory effort, normal air movement and clear to auscultation bilaterally Cardio regular rate, regular rhythm, S1 normal heart sound, S2 normal heart sound and no murmurs GI normal to inspection, nondistended, normoactive bowel sounds, soft to palpation, non-tender and non-distended Extremity normal to inspection, full ROM, normal capillary refill, no clubbing, cyanosis or edema and no calf tenderness General Extremity: no tenderness to palpation of joints or extremities Skin no rashes or lesions noted General Skin Exam: no breakdown Neuro oriented x3, CN's II-XII intact bilaterally, moves all extremities and no focal motor deficits Sensorium / Orientation: awake and alert Motor Exam: general weakness Psych thought process normal, cooperative and affect normal Appearance: appropriate Medical Records Data Medical Nutrition Assessment Dietitian: Malnutrition Criteria Met Start: 06/24/25 12:26 Freq: Status: Active Protocol: Document 06/24/25 12:26 SLA (Rec: 06/24/25 12:26 SLA ..25.7) Nutrition Malnutrition Evidence of Yes Malnutrition Exists Malnutrition (severe Acute Illness/Injury ): Evidenced By Suboptimal Energy Intake (Severe),Weight Loss (Moderate ),Physical Changes (Moderate) Clinical Problem Acute Disease or Injury Related Malnutrition Etiology related to inadequate energy intake Signs/Symptoms as evidenced by <75% po intake and 4.6% unplanned wt loss x 1 month and has muscle wasting/fat loss throughout body. Status Active Problem Recommendation Dietitian Continue liberal regular diet as ordered Recommendations/ Add fortified foods w/ meals as able Changes Will order 4 oz EPHP 4x/day w/ medpass for increased nutrition if consumed. Continue to follow and monitor for changes in pt nutritional status and make additional rec as indicated . Weight / BMI Weight Weight: 135 lb 2.294 oz Body Mass Index (BMI) 20.5 ABG / Lab / Microbiology Data 06/25/25 04:44 06/25/25 04:44 Laboratory: Laboratory Results - last 24 hr 06/24/25 16:50: APTT 57.3 H 06/24/25 22:50: APTT 56.6 H 06/25/25 04:44: WBC 4.3 L, RBC 3.34 L, Hgb 9.9 L, Hct 30.1 L, MCV 90.1, MCH 29.6, MCHC 32.9, RDW Std Deviation 50.1 H, RDW Coeff of Erma 15.1 H, Plt Count 89 L, MPV 10.6, Immature Gran % (Auto) 0.200, Neut % (Auto) 68.5, Lymph % (Auto) 17.4 L, Yell % (Auto) 9.2, Eos % (Auto) 4.0, Baso % (Auto) 0.7, Absolute Neuts (auto) 2.9, Absolute Lymphs (auto) 0.74 L, Nucleated RBC % 0, Differential Comment SCANNED, Platelet Estimate MOD DEC, APTT 56.6 H, Sodium 136, Potassium 4.1, Chloride 103, Carbon Dioxide 22.1, Anion Gap 11, BUN 37 H, Creatinine 1.57 H, Estim Creat Clear Calc 29.83 L, Est GFR (MDRD) Non-Af 43 L, BUN/Creatinine Ratio 23.8 H, Glucose 94, Calcium 8.7 D/C Instructions Discharge Activity: Return to Normal Activity DC O2, CPAP, BIPAP Needs Home O2 Discharge instructions: No Meaningful Use Info Meaningful Use Meaningful Use Diagnoses (Choose all that apply): AMI AMI/Post PCI/Angioplasty Aspirin given w/in 24hrs of arrival?: Yes ASA at discharge?: Yes Antiplatelet Therapy at Discharge:: Yes Statins at discharge?: Yes Ford/ARB at discharge?: Yes Beta Brandon at discharge?: Yes Done w/ Acute AR measure.: Yes Documented LVEF (%): 40 Discharge Plan Admission Admit Date/Time: 06/23/25 21:09 Primary Reason for Your Visit: nonstemi Attending Provider: Olamide Morales Primary Care Provider: Dallas Reed Consulting Providers: Beronica Turcios; Margy Stark Discharge Orders/Prescriptions Prescriptions: No Action multivitamin Tablet 1 tab PO DAILY ascorbic acid (vitamin C) 500 mg capsule 1,000 mg PO DAILY losartan 50 mg tablet 50 mg PO QDAY aspirin 81 mg tablet,chewable 81 mg PO ONCE Qty: 90 3RF magnesium oxide 400 mg (241.3 mg magnesium) tablet 400 mg PO DAILY doxazosin 8 mg tablet 8 mg PO QHS hydralazine 100 mg tablet 100 mg PO TID nifedipine 60 mg tablet extended release 60 mg PO DAILY ferrous sulfate [Feosol] 325 mg (65 mg iron) tablet 325 mg PO DAILY cholecalciferol (vitamin D3) [Vitamin D3] 125 mcg (5,000 unit) tablet 125 mcg PO DAILY ezetimibe 10 mg tablet 10 mg PO DAILY levothyroxine 25 mcg tablet 25 mcg PO DAILY carvedilol 6.25 mg tablet 6.25 mg PO BID furosemide 20 mg tablet 20 mg PO DAILY Referrals / Follow Up: Dallas Reed MD [Primary Care Provider, Internal Medicine] Disposition Disposition (needs filled in before D/C Order can be placed): Acute Care Hospital Charges/Coding Visit Charges Inpatient E&M: 66792 Disch Hosp >30min
--- NOTE | 2025-06-25 15:24 | CHAPLAIN ---
Type of Pastoral Visit ___ Initial Visit ___ Follow-up Visit ___ On-call Visit ___ General Patient Visit ___ Spiritual Assessment ___ Family Conference ___ Bereavement ___ Rapid Response ___ Code Blue ___ Other (describe below) Pastoral Care Referral From ___ Patient ___ Family ___ Nurse ___ Physician ___ Set Off Press Operator ___ Manager Equipment ___ Other (describe below) Sacrament/Intervention ___ Active listening ___ Anointing ___ Catholic ___ Bereavement ___ Communion ___ Lin exploration ___ ___ Life review ___ Prayer ___ Reconciliation ___ Sacrament of Sick ___ Supportive presence ___ Wedding ___ Other (describe below) Pastoral Comments at first attempt the patient was in the bathroom; at second attempt the patient was gone
== END 2025-06-25 14:25 | disposition short-term general hospital (02) | DRG 280 ==
LOC: ED 21:08 → PCU 21:23
PROVIDERS: Admitting Provider Family Medicine; Emergency Provider Emergency Medicine; PCP Internal Medicine; Visit Provider Student in an Organized Health Care Education/Training Program
DX: I21.4 Non-ST elevation (NSTEMI) myocardial infarction (principal); E43 Unspecified severe protein-calorie malnutrition; I48.92 Unspecified atrial flutter; I50.32 Chronic diastolic (congestive) heart failure; I13.0 Hypertensive heart and chronic kidney disease with heart failure and stage 1 through stage 4 chronic kidney disease, or unspecified chronic kidney disease; D69.6 Thrombocytopenia, unspecified; I48.0 Paroxysmal atrial fibrillation; N18.31 Chronic kidney disease, stage 3a; E03.9 Hypothyroidism, unspecified; D50.9 Iron deficiency anemia, unspecified; Z95.828 Presence of other vascular implants and grafts; I25.2 Old myocardial infarction; E78.5 Hyperlipidemia, unspecified; I25.10 Atherosclerotic heart disease of native coronary artery without angina pectoris; N40.0 Benign prostatic hyperplasia without lower urinary tract symptoms; Z68.20 Body mass index [BMI] 20.0-20.9, adult; Z79.82 Long term (current) use of aspirin; Z79.890 Hormone replacement therapy; Z79.899 Other long term (current) drug therapy; Z86.73 Personal history of transient ischemic attack (TIA), and cerebral infarction without residual deficits; Z86.79 Personal history of other diseases of the circulatory system; Z87.891 Personal history of nicotine dependence
CPT/HCPCS: 36415; 71045; 80048; 80053; 80061; 83735; 84439; 84443; 84481; 84484; 85025; 85610; 85730; 93005; 93308; 93454; 94762; 97162; 97166; 97530; 97802; 99152; 99153; 99284; Q9967; A4216; C1769; C1894

== ENCOUNTER → 2025-07-12 | Outpatient (CLI) | payer MEDICARE, OTHER, SELFPAY ==
[2025-07-12 11:50] LABS: Hematocrit 30.2 % (40-54); Hemoglobin 9.8 g/dL (13.0-16.5); Immature Granulocytes Count 0.040 X10^3/uL (0.0-0.0); Mean Corp Hgb Conc 32.5 g/dL (32-36); Mean Corpuscular Volume 91.0 fL (80-94); Mean Platelet Vol. 10.7 fl (6.2-12.0); NRBC Flagged by Analyzer 0 % (0-5); POSITIVE DIFFERENTIAL YES; Platelet Count 122 K/mm3 (150-450); RBC Distribution Width CV 17.3 % (11.6-14.6); RBC Distribution Width SD 57.4 fl (35.1-43.9); Red Blood Count 3.32 M/mm3 (4.6-6.2); White Blood Count 8.2 K/mm3 (4.4-11.0)
[2025-07-12 12:30] LABS: Anion Gap 10 (5-15); BUN 51 mg/dL (4-19); BUN/Creat Ratio 31.7 RATIO (10-20); Calcium,Total 9.0 mg/dL (7.6-11.0); Carbon Dioxide 24.9 mmol/L (21.0-32.0); Chloride 101 mmol/L (98-108); Glucose 116 mg/dL (70-99); Potassium 4.5 mmol/L (3.3-5.1)
== END | disposition home or self-care (01) ==
PROVIDERS: PCP Internal Medicine; Referring Provider Nurse Practitioner Family; Visit Provider Nurse Practitioner Family
DX: R94.39 Abnormal result of other cardiovascular function study (principal); I50.30 Unspecified diastolic (congestive) heart failure; I48.92 Unspecified atrial flutter; E78.5 Hyperlipidemia, unspecified; J90 Pleural effusion, not elsewhere classified; R53.83 Other fatigue
CPT/HCPCS: 36415; 71046; 80048; 85025

== ENCOUNTER 2025-07-15 10:55 | Inpatient (IN) | payer MEDICARE, OTHER, SELFPAY ==
[2025-07-15] VITALS (23 sets, daily range): BP systolic 138–178; BP diastolic 72–95; PULSE 66–81; RESP 8–24; TEMP 36.4–37.2; O2SAT 94–100; BMI 24.6; BMI 25.1
--- NOTE | 2025-07-15 10:57 | RAD_ITS ---
PROCEDURE: RAD/Chest 1 View (Portable)
--- NOTE | 2025-07-15 10:59 | ED.VIS.DYS ---
HPI History of Present Illness Chief Complaint: Shortness of Breath Detail of Chief Complaint: Shortness of breath, productive cough, orthopnea Informant: patient and EMS Onset/Context/Timing Onset: Today (Shortness of breath worsened this morning and called squad) Context: sudden Quality: Positive for Dyspnea on exertion and Wheezing; Negative for Orthopnea Current Severity: Moderate Maximum Severity: Severe Worsened by: Exertion, Lying flat and Coughing Relieved by: Nothing Associated Symptoms cough, sweats and yellow sputum; Negative for rhinorrhea, post nasal drip, ear pain, fever, sore throat, subjective, chills, clear sputum, white sputum or green sputum Chest Pain: Positive for None Narrative Narrative: Patient presents because of increased shortness of breath. Patient denied cough initially. His corrected him and he agreed he had a cough last evening. There is disagreement whether there was sputum production or not. She reports yellow with possibly blood-tinged. He denies productive cough. He denies fevers had some chills. He had recent four-vessel bypass surgery at [facility]. He had a follow-up visit with Dr. Alexandru Laughlin July 12. Dr. Olivares's note was reviewed. 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 He was transferred to [facility] and Dr. Lul Lloyd saw him in consultation. Recommendation was bypass surgery. He has a past history of chronic kidney disease. He underwent bypass surgery on June 27. He received a left internal mammary artery to the LAD, vein graft to the OM branch of the circumflex and a saphenous vein graft to diagonal branch. Left atrium was closed with an X occlusion device by clip. Postoperatively he had a consumptive coagulopathy resulting in anemia. He had a chest x-ray at that time which revealed findings concerning for pneumonia was treated with Augmentin for 5 days. Patient is at a good informant. He states he had a four-vessel bypass surgery based on Dr. Laughlin's note he had three-vessel bypass surgery. He also was treated for pneumonia at that time. PE Risk Factors: Positive for Recent immobilization and Recent surgery; Negative for Cancer, OCP + Smoking + > 35, Prior DVT or PE or Recent travel Prior similar symptoms: Yes (Pneumonia beginning of the month) Recent Illness/Hospitalization: Yes [facility] 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 History of echocardiogram Easy bruising History of IBS Former smoker History of stress test Cardiology follow-up encounter History of irregular heartbeat Preop cardiovascular exam Chronic renal failure, stage 3 (moderate) Stenosis of right internal carotid artery Abdominal aortic 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 Essential hypertension Lumbar disc disease 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 Hyperlipidemia Diverticulosis Pre-operative cardiovascular examination Anemia 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, NYHA class 2 RSV (respiratory syncytial virus pneumonia) Shortness of breath Cough productive of purulent sputum Home Medications ?Medication ?Instructions ?Recorded ?Last Taken ?Type multivitamin 1 tab PO DAILY supplement 05/18/19 06/23/25 History doxazosin 8 mg tablet 8 mg PO QHS prostate 05/23/24 07/14/25 History magnesium oxide 400 mg (241.3 mg 400 mg PO DAILY supplement 05/23/24 07/15/25 History magnesium) tablet levothyroxine 25 mcg tablet 25 mcg PO DAILY [id number] 11/28/24 07/15/25 History cholecalciferol (vitamin D3) 125 125 mcg PO DAILY vitamin 01/12/25 07/15/25 History mcg (5,000 unit) tablet (Vitamin D3) amiodarone 200 mg tablet See Rx Instructions PO BID 07/12/25 07/15/25 History furosemide 20 mg tablet (Lasix) 20 mg PO QAM #30 tabs 07/12/25 07/15/25 Rx metoprolol tartrate 50 mg tablet 50 mg PO BID 07/12/25 07/15/25 History acetaminophen 500 mg tablet 1,000 mg PO TID 07/15/25 Unknown History ascorbic acid (vitamin C) 1,000 mg 2,000 mg PO DAILY 07/15/25 07/15/25 History tablet,extended release (C Complex) aspirin 81 mg tablet,delayed 81 mg PO DAILY 07/15/25 07/15/25 History release bempedoic acid 180 mg tablet 180 mg PO DAILY 07/15/25 Unknown History (Nexletol) carvedilol 6.25 mg tablet 6.25 mg PO BID 07/15/25 Unknown History coenzyme [id number] 100 mg-20 1 cap PO DAILY 07/15/25 07/15/25 History mg capsule ezetimibe 10 mg tablet 10 mg PO 07/15/25 Unknown History ferrous sulfate 325 mg (65 mg 325 mg PO DAILY 07/15/25 07/15/25 History iron) tablet (Meghan-Time) hydralazine 100 mg tablet 100 mg PO TID 07/15/25 07/15/25 History losartan 50 mg tablet 50 mg PO DAILY 07/15/25 Unknown History Allergy/AdvReac Type Severity Reaction Status Date / Time lisinopril Allergy Intermediate Rash Verified 07/12/25 13:56 atorvastatin calcium (From Allergy Other Verified 07/12/25 13:56 Lipitor) clonidine Allergy Unknown Verified 07/12/25 13:56 rosuvastatin calcium (From Allergy Other Verified 07/12/25 13:56 Crestor) Ntjeivk-RME-FiM Reductase Allergy Other Verified 07/12/25 13:56 Inhibitor (Vlaltfa-Nig-Ecz Reductase Inhibitor) Family History Father Lung cancer Liver cancer Mother Oral cancer Surgical History History of radiofrequency ablation procedure for cardiac arrhythmia Status post double vessel coronary artery bypass (~06/27/25) S/P spigelian hernia repair, follow-up exam S/P AAA repair (~02/2025) History of right-sided carotid endarterectomy Hx of cataract surgery Hx of appendectomy History of tonsillectomy History of back surgery History of colonoscopy History of blepharoplasty History of inguinal hernia repair History of umbilical hernia repair 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 Social History household members: spouse Smoking Status: Former smoker second hand exposure: No alcohol intake: never substance use type: does not use caffeine: Yes Type: coffee Number of servings: 2 ROS ROS ED Constitutional Constitutional ED: Reports chills; Denies fever(s) or sweats Eyes Eyes: Denies blurry vision or change in vision ENT ENT ED: Denies ear pain, rhinorrhea or sore throat Cardiovascular Cardiovascular: Reports orthopnea; Denies chest pain or paroxysmal nocturnal dyspnea Respiratory/Chest Respiratory/Chest: Reports cough, dyspnea, dyspnea on exertion, orthopnea and sputum; Denies paroxysmal nocturnal dyspnea Gastrointestinal Gastrointestinal: Denies abdominal pain, melena, nausea or vomiting Genitourinary Genitourinary ED: Denies dysuria, hematuria or urinary frequency Musculoskeletal Musculoskeletal: Denies arthralgias or myalgias Integumentary Denies rash Neurologic Neurologic: Reports weakness Endocrine Endocrinology: Reports cold intolerance and heat intolerance Hematologic/Lymphatic Hematologic/Lymphatic: Denies easy bleeding or easy bruising EXAM Physical Exam Const Vital Signs: 07/15/25 10:55 07/15/25 10:57 07/15/25 10:57 Temperature 98.9 F Temperature Source Oral Pulse Rate 66 Respiratory Rate 18 Respiratory Effort Short of Breath Accessory Muscle Use Retracting Respiratory Pattern Tachypnea Blood Pressure 173/89 H Blood Pressure Mean 117 Blood Pressure Source Blood Pressure Location Pulse Ox 100 Oxygen Delivery Method Room Air Room Air Room Air Oxygen Flow Rate (L/min) 07/15/25 10:58 07/15/25 11:21 07/15/25 11:58 Temperature 98.8 F 98 F Temperature Source Oral Oral Pulse Rate 67 67 Respiratory Rate 19 H 20 H Respiratory Effort Respiratory Pattern Blood Pressure 178/88 H 158/78 H Blood Pressure Mean 118 104 Blood Pressure Source Blood Pressure Location Pulse Ox 98 96 98 Oxygen Delivery Method Nasal Cannula Nasal Cannula Nasal Cannula Oxygen Flow Rate (L/min) 2 2 2 07/15/25 12:00 07/15/25 13:00 07/15/25 13:01 Temperature 98 F 98.2 F Temperature Source Oral Oral Pulse Rate 66 70 Respiratory Rate 18 16 Respiratory Effort Respiratory Pattern Blood Pressure 167/72 H 159/88 H 159/88 H Blood Pressure Mean 103 111 111 Blood Pressure Source Monitor Blood Pressure Location Left Arm Pulse Ox 97 100 Oxygen Delivery Method Nasal Cannula Bi-pap Oxygen Flow Rate (L/min) 2 07/15/25 13:07 Temperature 98.2 F Temperature Source Pulse Rate 71 Respiratory Rate 15 Respiratory Effort Respiratory Pattern Blood Pressure 159/88 H Blood Pressure Mean 111 Blood Pressure Source Blood Pressure Location Pulse Ox 100 Oxygen Delivery Method Oxygen Flow Rate (L/min) Positive well nourished Constitutional Narrative: Patient has respiratory distress with use of accessory muscles question of paradoxical breathing. His initial vital signs were remarkable for an elevated blood pressure. Patient arrived with a nonrebreather mask on. His subsequent vitals were reviewed. In spite of a normal rate he still is having respiratory distress. He has conversational dyspnea. General Appearance ED: pallor HEENT Reports moist mucous membranes HEENT Narrative: Head is atraumatic normocephalic. Ears normal. Nares patent. Eyes PERRL and EOMs intact bilaterally General Eye ED: Negative for pale conjunctiva or scleral icterus Neck no lymphadenopathy, supple, no meningeal signs and no JVD Resp No normal respiratory effort and No clear to auscultation bilaterally Resp Narrative: Patient has absent breath sounds right lower lobe anterior and posteriorly. There are rales noted bilaterally. He has use of accessory muscles. Paradoxical breathing. He is able to say 1-3 word responses to questions asked. Cardio regular rate, regular rhythm and no murmurs GI non-tender, non-distended and no masses Auscultation: normoactive bowel sounds Palpation: soft Back/Spine no CVA tenderness Extremity General Extremety ED: Yes edema; Negative for tenderness General Extremity: edema Neuro oriented x3 and CN's II-XII intact bilaterally Sensorium / Orientation: alert Psych mental status grossly normal Skin no wounds General Skin Exam: pallor MDM MDM MDM Narrative Medical decision making narrative: Concern patient has probably both right lower lobe pneumonia and heart failure. With recent surgery will obtain chest x-ray to confirm suspicion of pneumonia versus CHF versus combination. EKG to rule out acute ischemic changes. CBC to assess white count and differential. Clinically appears pale. Electrolyte panel was obtained to assess his renal function and compared to prior. I was informed by the accredited pharmacy technician that patient has been taking significant mount of Tylenol along with his hydrocodone and acetaminophen. In light of this we will obtain acetaminophen level. Also will obtain liver enzymes for baseline. Lab Data Attestation: I reviewed the patient's lab results. Lab results narrative: White count is normal. Patient does have anemia. Is essentially unchanged from prior. Creatinine is elevated. Creatinine is at patient's baseline with an estimated GFR of 33. Labs: Laboratory Results - last 24 hr 07/15/25 11:05 WBC 7.3 RBC 3.19 L Hgb 9.4 L Hct 29.7 L MCV 93.1 MCH 29.5 MCHC 31.6 L RDW Std Deviation 60.3 H RDW Coeff of Erma 17.5 H Plt Count 108 L MPV 10.7 Immature Gran % (Auto) 0.800 Neut % (Auto) 85.6 H Lymph % (Auto) 6.3 L Callahan % (Auto) 4.9 Eos % (Auto) 2.1 Baso % (Auto) 0.3 Absolute Neuts (auto) 6.3 Absolute Lymphs (auto) 0.46 L Nucleated RBC % 0 PT 14.9 INR 1.1 APTT 46.7 H Sodium 135 Potassium 4.3 Chloride 101 Carbon Dioxide 23.0 Anion Gap 11 BUN 49 H Creatinine 1.55 H Estim Creat Clear Calc 33.71 L Est GFR (MDRD) Non-Af 44 L BUN/Creatinine Ratio 31.3 H Glucose 114 H Lactic Acid 1.5 Calcium 8.9 Total Bilirubin 0.57 AST 37 ALT 12 Alkaline Phosphatase 67 Total Protein 7.0 Albumin 3.7 Globulin 3.3 Albumin/Globulin Ratio 1.1 ABG Data ABG results: ABG 07/15/25 07/15/25 11:11 11:32 Specimen Type ART ART Sample Site R Brach R Radial pH 7.37 7.35 Bicarbonate Actual 24.2 24.3 Total CO2 26 26 Base Excess -1 -1 O2 Saturation 82 L 91 L O2 % 21.0 2.0 ABG pCO2 41.7 44.2 ABG pO2 48 L 65 L Garrick Test Positive Positive O2 Delivery Device Room Air Cannula Vent Mode Not entered Not entered Radiography Chest X-Ray - ED: 1 View and Read by ED Physician (Right lower lobe pneumonia. Decreasing story volume. Possible mild congestion.) Diagnostic Testing: Clinical Impression(s) from Imaging Studies Chest X-Ray 07/15/25 10:57 IMPRESSION: Worsening pulmonary edema. Small bilateral pleural effusions. Reading Location: [facility] EKG Initial EKG: Attestation: I personally reviewed and interpreted this EKG as follows: Interpretation: Sinus Rhythm (Rate is 66. IL interval is 184 ms. Cures duration 110 ms. QT duration 474 ms. [place] is normal. There is evidence of LVH. There is also artifact due to his respiratory distress) Management Discussion w/another healthcare provider: Hospitalist (Case discussed with Dr. Dustin Alicea. He will see patient in the ER and determine appropriate unit) and Plate Molder (. Patient was discussed with raw material handler on-call Dr. Mcdowell. He was informed of patient's history, reason for presentation, laboratory studies imaging results and discrepancy between radiology and me. Agrees with admission.) Treatment and Re-Evaluation :: Patient was started on antibiotics for nosocomial pneumonia right lower lobe. He also has evidence of failure. Since he has not improved we will treat with Lasix IV since clinically he is fluid overloaded and nitroglycerin drip for preload reduction as well as BiPAP since he is in respiratory distress and reduced work of breathing. Patient will require admission. Critical Care Time Critical Care Time: Yes Critical care time (excluding procedures): 30-74 minutes (36), Including time spent: (History, physical, documentation, independent or potation laboratory results, treatment for CHF and pneumonia), Discussing w/Patient &/or Family/Lens Assorter (Patient and spouse. Also EMS when he arrived.), Discussing w/Consultants and Arranging Admission or Transfer Discharge Plan Dx/Rx/DC Orders Clinical Impression: Acute respiratory distress, Infiltrate of lower lobe of right lung present on imaging study, Pulmonary edema cardiac cause, ASCVD (arteriosclerotic cardiovascular disease), Chronic kidney disease Disposition Disposition: Acute Care [facility]
[2025-07-15 11:14] LABS: Hematocrit 29.7 % (40-54); Hemoglobin 9.4 g/dL (13.0-16.5); Immature Granulocytes Count 0.060 X10^3/uL (0.0-0.0); Mean Corp Hgb Conc 31.6 g/dL (32-36); Mean Corpuscular Volume 93.1 fL (80-94); Mean Platelet Vol. 10.7 fl (6.2-12.0); NRBC Flagged by Analyzer 0 % (0-5); POSITIVE DIFFERENTIAL YES; Platelet Count 108 K/mm3 (150-450); RBC Distribution Width CV 17.5 % (11.6-14.6); RBC Distribution Width SD 60.3 fl (35.1-43.9); Red Blood Count 3.19 M/mm3 (4.6-6.2); White Blood Count 7.3 K/mm3 (4.4-11.0)
[2025-07-15 11:15] LABS: Allen Test Positive; Base Excess -1 mmol/L (-2 to +2); FI02 21.0; PO2 48 mmHG (75-100); SITE R Brach; SO2 82 % (94-98)
[2025-07-15 11:23] LABS: Prothrombin Time (Protime)PT. 14.9 SECONDS (11.7-14.9)
[2025-07-15 11:24] LABS: Partial Thromboplast Time 46.7 Seconds (24.1-36.2)
[2025-07-15] MEDS: Piperacil/Tazobactam 4.5 GM in 0.9% Normal Saline (100mL MB+) 100 ML IV (11:28)
[2025-07-15 11:33] LABS: AST(SGOT) 37 U/L (<=37); Alanine Aminotransfer ALT/SGPT 12 U/L (<=46); Albumin, Serum 3.7 g/dL (3.4-4.8); Alkaline Phosphatase 67 U/L (40-129); Anion Gap 11 (5-15); BUN 49 mg/dL (4-19); BUN/Creat Ratio 31.3 RATIO (10-20); Calcium,Total 8.9 mg/dL (7.6-11.0); Carbon Dioxide 23.0 mmol/L (21.0-32.0); Chloride 101 mmol/L (98-108); Estimated Creatinine Clearance 33.71 ml/min (50-250); Globulin 3.3 g/dL (2.2-4.2); Glucose 114 mg/dL (70-99); Potassium 4.3 mmol/L (3.3-5.1)
[2025-07-15 11:36] LABS: Allen Test Positive; FI02 2.0; PO2 65 mmHG (75-100); SITE R Radial
[2025-07-15 11:37] LABS: Base Excess -1 mmol/L (-2 to +2); SO2 91 % (94-98)
[2025-07-15] MEDS: Vancomycin HCl 1,750 MG in 0.9% Normal Saline (500mL Bag) 500 ML 250 MG IV (12:26)
[2025-07-15] MEDS: Nitroglycerin Infusion 250 ML 3 MG CONT INF (13:01)
--- NOTE | 2025-07-15 13:06 | ED.RN ---
Pt declines smith catheter, requests purewick instead
[2025-07-15 13:22] LABS: Acetaminophen (Tylenol) Level 11.7 ug/mL (8.0-19.0)
--- NOTE | 2025-07-15 13:29 | PCM.HP.STD ---
[facility] - General General Date of Service: 07/15/25 Chief Complaint: shortness of breath. HPI Narrative CAROLINA SY, is a 85 M who presents with a 2-day history of shortness of breath. This is an 85-year-old male who underwent a CABG earlier this month at [facility]. He was discharged a week ago and had been doing well up until 2 days ago. Saw his senior net c developer on the and was doing well at that time. Had a chest x-ray that was unremarkable. But over the past 2 days he has become more short of breath. Presented to the emergency room where he had a chest x-ray that showed pulmonary vascular congestion as well as pleural effusions. Patient has been coughing but nothing productive. He does feel chilled but this is more of a chronic process and not new. He received IV furosemide, placed on nitroglycerin drip, received antibiotics and the hospital service was contacted for admission. I went and saw the patient and had respiratory take him off the the BiPAP and he was placed on 2 L nasal cannula and would talk in short shallow senses but was not in any respiratory distress. He maintained his sats between 97 to 100% on 2 L nasal cannula. States that he has gotten short of breath the past couple days, states that he is put on 6 pounds since yesterday. States that he does not restrict his fluid intake. [ ] [facility] Medical History LV dysfunction Chronic kidney disease Chronic anemia Non-ST elevated myocardial infarction Chest pain Paroxysmal atrial flutter Abnormal stress test Elevated TSH DALTON (acute kidney injury) Acute exacerbation of chronic heart failure Non-ST elevation [place] (NSTEMI) New onset atrial flutter Wears hearing aid Wears glasses History of steroid therapy Arthritis History of renal disease TIA (transient ischemic attack) Spigelian hernia Carotid artery stenosis 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 History of echocardiogram Easy bruising History of IBS Former smoker History of stress test Cardiology follow-up encounter History of irregular heartbeat Preop cardiovascular exam Chronic renal failure, stage 3 (moderate) Stenosis of right internal carotid artery Abdominal aortic 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 Essential hypertension Lumbar disc disease 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 Hyperlipidemia Diverticulosis Pre-operative cardiovascular examination Anemia 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, NYHA class 2 RSV (respiratory syncytial virus pneumonia) Shortness of breath Cough productive of purulent sputum Home Medications ?Medication ?Instructions ?Recorded ?Last Taken ?Type multivitamin 1 tab PO DAILY supplement 05/18/19 06/23/25 History doxazosin 8 mg tablet 8 mg PO QHS prostate 05/23/24 07/14/25 History magnesium oxide 400 mg (241.3 mg 400 mg PO DAILY supplement 05/23/24 07/15/25 History magnesium) tablet levothyroxine 25 mcg tablet 25 mcg PO DAILY [id number] 11/28/24 07/15/25 History cholecalciferol (vitamin D3) 125 125 mcg PO DAILY vitamin 01/12/25 07/15/25 History mcg (5,000 unit) tablet (Vitamin D3) amiodarone 200 mg tablet See Rx Instructions PO BID 07/12/25 07/15/25 History furosemide 20 mg tablet (Lasix) 20 mg PO QAM #30 tabs 07/12/25 07/15/25 Rx metoprolol tartrate 50 mg tablet 50 mg PO BID 07/12/25 07/15/25 History acetaminophen 500 mg tablet 1,000 mg PO TID 07/15/25 Unknown History ascorbic acid (vitamin C) 1,000 mg 2,000 mg PO DAILY 07/15/25 07/15/25 History tablet,extended release (C Complex) aspirin 81 mg tablet,delayed 81 mg PO DAILY 07/15/25 07/15/25 History release bempedoic acid 180 mg tablet 180 mg PO DAILY 07/15/25 Unknown History (Nexletol) carvedilol 6.25 mg tablet 6.25 mg PO BID 07/15/25 Unknown History coenzyme [id number] 100 mg-20 1 cap PO DAILY 07/15/25 07/15/25 History mg capsule ezetimibe 10 mg tablet 10 mg PO 07/15/25 Unknown History ferrous sulfate 325 mg (65 mg 325 mg PO DAILY 07/15/25 07/15/25 History iron) tablet (Meghan-Time) hydralazine 100 mg tablet 100 mg PO TID 07/15/25 07/15/25 History losartan 50 mg tablet 50 mg PO DAILY 07/15/25 Unknown History Allergy/AdvReac Type Severity Reaction Status Date / Time lisinopril Allergy Intermediate Rash Verified 07/12/25 13:56 atorvastatin calcium (From Allergy Other Verified 07/12/25 13:56 Lipitor) clonidine Allergy Unknown Verified 07/12/25 13:56 rosuvastatin calcium (From Allergy Other Verified 07/12/25 13:56 Crestor) [id number]-JFB-[id number] Reductase Allergy Other Verified 07/12/25 13:56 Inhibitor (Shdpjrg-Shu-Giv Reductase Inhibitor) Family History Father Lung cancer Liver cancer Mother Oral cancer Surgical History History of radiofrequency ablation procedure for cardiac arrhythmia Status post double vessel coronary artery bypass (~06/27/25) S/P spigelian hernia repair, follow-up exam S/P AAA repair (~02/2025) History of right-sided carotid endarterectomy Hx of cataract surgery Hx of appendectomy History of tonsillectomy History of back surgery History of colonoscopy History of blepharoplasty History of inguinal hernia repair History of umbilical hernia repair 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 Social History household members: spouse Smoking Status: Former smoker second hand exposure: No alcohol intake: never substance use type: does not use caffeine: Yes Type: coffee Number of servings: 2 ROS ROS Narrative Lower extremity edema. No chest pain. No palpitations. No abdominal pain. All review of systems were negative except as mentioned above in the history of present illness and the other review of systems. Vital Signs Vital Signs Vital Signs: 07/15/25 10:55 07/15/25 10:57 07/15/25 10:57 Temperature 37.2 C Temperature Source Oral Pulse Rate 66 Respiratory Rate 18 Respiratory Effort Short of Breath Accessory Muscle Use Retracting Respiratory Pattern Tachypnea Blood Pressure 173/89 H Blood Pressure Mean 117 Blood Pressure Source Blood Pressure Location Pulse Ox 100 Oxygen Delivery Method Room Air Room Air Room Air Oxygen Flow Rate (L/min) Fraction of Inspired Oxygen (FIO2) 07/15/25 10:58 07/15/25 11:21 07/15/25 11:58 Temperature 37.1 C 36.6 C Temperature Source Oral Oral Pulse Rate 67 67 Respiratory Rate 19 H 20 H Respiratory Effort Respiratory Pattern Blood Pressure 178/88 H 158/78 H Blood Pressure Mean 118 104 Blood Pressure Source Blood Pressure Location Pulse Ox 98 96 98 Oxygen Delivery Method Nasal Cannula Nasal Cannula Nasal Cannula Oxygen Flow Rate (L/min) 2 2 2 Fraction of Inspired Oxygen (FIO2) 07/15/25 12:00 07/15/25 12:45 07/15/25 13:00 Temperature 36.6 C 36.8 C Temperature Source Oral Oral Pulse Rate 66 69 70 Respiratory Rate 18 24 H 16 Respiratory Effort Respiratory Pattern Blood Pressure 167/72 H 159/88 H Blood Pressure Mean 103 111 Blood Pressure Source Blood Pressure Location Pulse Ox 97 100 100 Oxygen Delivery Method Nasal Cannula Bi-pap Oxygen Flow Rate (L/min) 2 Fraction of Inspired Oxygen (FIO2) 30 07/15/25 13:01 07/15/25 13:07 Temperature 36.8 C Temperature Source Pulse Rate 71 Respiratory Rate 15 Respiratory Effort Respiratory Pattern Blood Pressure 159/88 H 159/88 H Blood Pressure Mean 111 111 Blood Pressure Source Monitor Blood Pressure Location Left Arm Pulse Ox 100 Oxygen Delivery Method Oxygen Flow Rate (L/min) Fraction of Inspired Oxygen (FIO2) Weight Weight: 73.6 kg Body Mass Index (BMI) 24.6 Physical Exam Const alert and no apparent distress Constitutional Narrative: Speaks Durasal sentences but paradoxically does not in any kind of respiratory distress. Maintaining sats of 97 to 100% on 2 L nasal cannula while conversing with me. General Appearance: cooperative HEENT normocephalic and head/scalp atraumatic Eyes Eyes Narrative: No icterus. Neck Neck Narrative: Positive JVD. Resp Resp Narrative: Bibasilar crackles. Cardio regular rate, regular rhythm, S1 normal heart sound and S2 normal heart sound GI normal to inspection, nondistended, normoactive bowel sounds, soft to palpation, non-tender and non-distended Extremity Extremity Narrative: Nonpitting lower extremity edema Skin Skin Narrative: Healing sternotomy scar without any erythema nor dehiscence. Neuro moves all extremities Sensorium / Orientation: awake and alert Psych affect normal Results Lab / Micro Data Attestation: I reviewed the patient's lab results. 07/15/25 11:05 07/15/25 11:05 Labs: Laboratory Results - last 24 hr 07/15/25 11:05: WBC 7.3, RBC 3.19 L, Hgb 9.4 L, Hct 29.7 L, MCV 93.1, MCH 29.5, MCHC 31.6 L, RDW Std Deviation 60.3 H, RDW Coeff of Erma 17.5 H, Plt Count 108 L, MPV 10.7, Immature Gran % (Auto) 0.800, Neut % (Auto) 85.6 H, Lymph % (Auto) 6.3 L, [place] % (Auto) 4.9, Eos % (Auto) 2.1, Baso % (Auto) 0.3, Absolute Neuts (auto) 6.3, Absolute Lymphs (auto) 0.46 L, Nucleated RBC % 0, PT 14.9, INR 1.1, APTT 46.7 H, Sodium 135, Potassium 4.3, Chloride 101, Carbon Dioxide 23.0, Anion Gap 11, BUN 49 H, Creatinine 1.55 H, Estim Creat Clear Calc 33.71 L, Est GFR (MDRD) Non-Af 44 L, BUN/Creatinine Ratio 31.3 H, Glucose 114 H, Lactic Acid 1.5, Calcium 8.9, Total Bilirubin 0.57, AST 37, ALT 12, Alkaline Phosphatase 67, Total Protein 7.0, Albumin 3.7, Globulin 3.3, Albumin/Globulin Ratio 1.1 07/15/25 11:45: Acetaminophen 11.7 ABG Data ABG results: ABG 07/15/25 07/15/25 11:11 11:32 Specimen Type ART ART Sample Site R Brach R Radial pH 7.37 7.35 Bicarbonate Actual 24.2 24.3 Total CO2 26 26 Base Excess -1 -1 O2 Saturation 82 L 91 L O2 % 21.0 2.0 ABG pCO2 41.7 44.2 ABG pO2 48 L 65 L Garrick Test Positive Positive O2 Delivery Device Room Air Cannula Vent Mode Not entered Not entered EKG Initial EKG: Attestation: I personally reviewed and interpreted this EKG as follows: Prior EKG tracings: available for review EKG Rhythm Intrepretation: Sinus Rhythm (LVH) Imaging Radiology Impression Chest X-Ray 07/15/25 10:57 IMPRESSION: Worsening pulmonary edema. Small bilateral pleural effusions. Reading Location: [id number] Assessment & Plan Assessment/Plan (1) HFrEF (heart failure with reduced ejection fraction): PLAN: Acute Echocardiogram from June 25 showed an EF of 45%. Patient had a chest x-ray performed on the that looked unremarkable but now has pulmonary vascular congestion as well as pleural effusions 2 days later. Feel primarily his symptoms are not due to pneumonia but primarily due to CHF. In the absence of fever and leukocytosis I would not be continuing treatment with antibiotics at this time but will continue to diurese him with IV furosemide. Additionally, we will fluid restrict him to 1.5 L/day, check daily weights. Repeat echocardiogram to see if there is been any changes since his echocardiogram 20 days ago, since he has had a CABG in the interim. PLAN: Plan Chronic medical additions CAD: Status post CABG. Atrial fibrillation: Reviewed Dr. Laughlin note from the . This is just being treated with amiodarone 200 mg daily. He is not on anticoagulation as he is maintaining normal sinus rhythm. It is his thoughts that that was related with his cardiac surgery. Continue with metoprolol to tartrate Debility: Patient was using a walker when he was discharged from the other hospital. By PT OT evaluation and treat. Hypothyroidism: Continue levothyroxine VTE prophylaxis with enoxaparin CODE STATUS: Addressed with the patient. Patient wishes to be full code. Case discussed with the patient's at bedside. Charges/Coding Visit Charges Inpatient E&M: 35019 Init Hosp L2
[2025-07-15 14:19] LABS: Mucous, Urine 0 SEEN /hpf (<or=2+); Red Blood Cells-Urine 0 SEEN /hpf (0-5); Squamous Epithelial Cells - UA 0 SEEN /hpf (0-5)
[2025-07-15 14:21] LABS: Color, Urine Yellow (Yellow); Glucose, Dipstick Normal (Normal); Ketone-Dipstick Negative (Negative); Leukocyte Esterase-Dipstick Negative /ul (Negative); Nitrite-Dipstick Negative (Negative); Occult Blood-Urine Negative /ul (Negative); Protein-Dipstick 30 mg/dl (Negative); Specific Gravity, Urine 1.015 (1.002-1.030); Urine Bilirubin Dipstick Negative (Negative)
--- NOTE | 2025-07-15 15:48 | PCM.CONS.C ---
Assessment & Plan Assessment/Plan (1) Acute on chronic systolic and diastolic heart failure, NYHA class 1: (2) Right lower lobe pneumonia: (3) ASCVD (arteriosclerotic cardiovascular disease): (4) HFrEF (heart failure with reduced ejection fraction): (5) Pulmonary edema cardiac cause: PLAN: 85-year-old patient presented to ED complaining of symptoms of shortness of breath. For the last 2 days associated with cough Patient recently underwent CABG at [facility]. Has multiple other medical problems history of carotid artery atherosclerosis, CKD with a baseline creatinine 1.6?1.8. Post CABG anemia. And pneumonia./A-fib He has non-ST elevation [place] here at [facility] and early in June underwent cardiac catheterization which revealed severe multivessel CAD Underwent CABG with MADRIGAL to LAD, SVG sequential to OM1 and and PDA. As well as SVG to diagonal. Patient also had left atrial appendage closure Postoperative course patient developed A-fib requiring DCCV And started on amiodarone As well had the pneumonia and treated with Augmentin for 5 days Patient seen recently by his audioprosthologist, Dr. Alexandru Laughlin, here at [facility] in July 12 reviewed all his medication And he set up the cardiac care plan. And presenting now complaining of cough with shortness of breath and as Bare history from his patient has gained weight around 6 pounds. With a clinical impression of acute on chronic systolic and diastolic heart failure Pulm edema Chest x-ray showed evidence of bilateral pleural effusion with pulmonary vascular congestion. Patient started on IV diuresis. To monitor electrolytes and renal function Cardiac care plan; Clinical presentation of shortness of breath with cough for the last 2 days secondary to systolic heart failure Patient started on BiPAP IV diuretics with furosemide Resume the cardiac medication. I review all the current evaluation in the hospital The last echocardiogram showed EF in the range of around 40?45%., Inferior hypokinesia Mild MR Cardiology team will follow-up clinically. Lorraine Mcdowell MD,[facility] spot welder HPI Consult Data Date of Consult: 07/15/25 HPI Narrative Reason for Consultation: Multivessel CAD status post CABG/HFrEF with right lower lobe pneumonia HPI Narrative: CAROLINA SY, is a 85 M who presents [ ] [facility] Medical History LV dysfunction Chronic kidney disease Chronic anemia Non-ST elevated myocardial infarction Chest pain Paroxysmal atrial flutter Abnormal stress test Elevated TSH DALTON (acute kidney injury) Acute exacerbation of chronic heart failure Non-ST elevation [place] (NSTEMI) New onset atrial flutter Wears hearing aid Wears glasses History of steroid therapy Arthritis History of renal disease TIA (transient ischemic attack) Spigelian hernia Carotid artery stenosis 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 History of echocardiogram Easy bruising History of IBS Former smoker History of stress test Cardiology follow-up encounter History of irregular heartbeat Preop cardiovascular exam Chronic renal failure, stage 3 (moderate) Stenosis of right internal carotid artery Abdominal aortic 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 Essential hypertension Lumbar disc disease 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 Hyperlipidemia Diverticulosis Pre-operative cardiovascular examination Anemia 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, NYHA class 2 RSV (respiratory syncytial virus pneumonia) Shortness of breath Cough productive of purulent sputum Home Medications ?Medication ?Instructions ?Recorded ?Last Taken ?Type doxazosin 8 mg tablet 8 mg PO QHS prostate 05/23/24 07/14/25 History magnesium oxide 400 mg (241.3 mg 400 mg PO DAILY supplement 05/23/24 07/15/25 History magnesium) tablet levothyroxine 25 mcg tablet 25 mcg PO DAILY thyroid 11/28/24 07/15/25 History cholecalciferol (vitamin D3) 125 125 mcg PO DAILY vitamin 01/12/25 07/15/25 History mcg (5,000 unit) tablet (Vitamin D3) amiodarone 200 mg tablet See Rx Instructions PO BID 07/12/25 07/15/25 History furosemide 20 mg tablet (Lasix) 20 mg PO QAM #30 tabs 07/12/25 07/15/25 Rx metoprolol tartrate 50 mg tablet 50 mg PO BID 07/12/25 07/15/25 History acetaminophen 325 mg capsule 650 mg PO Q6H pain 07/15/25 Unknown History acetaminophen 500 mg tablet 1,000 mg PO TID 07/15/25 Unknown History ascorbic acid (vitamin C) 1,000 mg 2,000 mg PO DAILY 07/15/25 07/15/25 History tablet,extended release (C Complex) aspirin 81 mg tablet,delayed 81 mg PO DAILY 07/15/25 07/15/25 History release coenzyme [id number] 100 mg-20 1 cap PO DAILY 07/15/25 07/15/25 History mg capsule ezetimibe 10 mg tablet 10 mg PO DAILY cholesterol 07/15/25 Unknown History ferrous sulfate 325 mg (65 mg 325 mg PO DAILY 07/15/25 07/15/25 History iron) tablet (Meghan-Time) hydralazine 100 mg tablet 100 mg PO TID 07/15/25 07/15/25 History Allergy/AdvReac Type Severity Reaction Status Date / Time lisinopril Allergy Intermediate Rash Verified 07/12/25 13:56 atorvastatin calcium (From Allergy Other Verified 07/12/25 13:56 Lipitor) clonidine Allergy Unknown Verified 07/12/25 13:56 rosuvastatin calcium (From Allergy Other Verified 07/12/25 13:56 Crestor) Jfjjwyu-ODM-BaN Reductase Allergy Other Verified 07/12/25 13:56 Inhibitor (Ecpqpjk-Bkp-Hdg Reductase Inhibitor) Family History Father Lung cancer Liver cancer Mother Oral cancer Surgical History History of radiofrequency ablation procedure for cardiac arrhythmia Status post double vessel coronary artery bypass (~06/27/25) S/P spigelian hernia repair, follow-up exam S/P AAA repair (~02/2025) History of right-sided carotid endarterectomy Hx of cataract surgery Hx of appendectomy History of tonsillectomy History of back surgery History of colonoscopy History of blepharoplasty History of inguinal hernia repair History of umbilical hernia repair 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 Social History household members: spouse Smoking Status: Former smoker second hand exposure: No alcohol intake: never substance use type: does not use caffeine: Yes Type: coffee Number of servings: 2 Physical Exam Cardio Cardio Narrative: Patient seen and evaluated at bedside along with the nursing staff He is on BiPAP teletypesetter monitor showed normal sinus Cardiac exam S1-S2 is regular Chest exam diminished air entry noted on the right side with basal crackles. Examination lower extremity had +1 lower extremity edema. Objective Data Vital Signs: Vital Signs Temp Pulse Resp BP Pulse Ox O2 Del Method O2 Flow Rate 97.6 F L 71 24 H 170/88 H 100 Bi-pap 2 07/15/25 15:30 07/15/25 15:30 07/15/25 15:30 07/15/25 15:30 07/15/25 15:30 07/15/25 15:34 07/15/25 12:00 FiO2 30 07/15/25 13:31 Oxygen Flow Rate (L/min) 2 Oxygen Delivery Method Bi-pap Weight: 165 lb 2.02 oz Body Mass Index (BMI) 25.1 Intake & Output: Intake and Output for Last 24 Hours 07/13/25 07/14/25 07/15/25 23:59 23:59 23:59 Intake Total 106.25 / 106.25 Balance 106.25 / 106.25 Lab / Micro Data 07/15/25 11:05 07/15/25 11:05 Labs: Laboratory Results - last 24 hr 07/15/25 11:05: WBC 7.3, RBC 3.19 L, Hgb 9.4 L, Hct 29.7 L, MCV 93.1, MCH 29.5, MCHC 31.6 L, RDW Std Deviation 60.3 H, RDW Coeff of Erma 17.5 H, Plt Count 108 L, MPV 10.7, Immature Gran % (Auto) 0.800, Neut % (Auto) 85.6 H, Lymph % (Auto) 6.3 L, [place] % (Auto) 4.9, Eos % (Auto) 2.1, Baso % (Auto) 0.3, Absolute Neuts (auto) 6.3, Absolute Lymphs (auto) 0.46 L, Nucleated RBC % 0, PT 14.9, INR 1.1, APTT 46.7 H, Sodium 135, Potassium 4.3, Chloride 101, Carbon Dioxide 23.0, Anion Gap 11, BUN 49 H, Creatinine 1.55 H, Estim Creat Clear Calc 33.71 L, Est GFR (MDRD) Non-Af 44 L, BUN/Creatinine Ratio 31.3 H, Glucose 114 H, Lactic Acid 1.5, Calcium 8.9, Total Bilirubin 0.57, AST 37, ALT 12, Alkaline Phosphatase 67, Total Protein 7.0, Albumin 3.7, Globulin 3.3, Albumin/Globulin Ratio 1.1 07/15/25 11:45: Acetaminophen 11.7 07/15/25 14:00: Urine Color Yellow, Urine Clarity Clear, Urine pH 6.0, Ur Specific [place] 1.015, Urine Protein 30 H, Urine Glucose (UA) Normal, Urine Ketones Negative, Urine Occult Blood Negative, Urine Nitrite Negative, Urine Bilirubin Negative, Urine Urobilinogen Normal, Ur Leukocyte Esterase Negative, Urine RBC 0 SEEN, Urine WBC 0 SEEN, Ur Squamous Epith Cells 0 SEEN, Urine Bacteria 0 SEEN, Urine Mucus 0 SEEN ABG Data ABG results: ABG 07/15/25 07/15/25 11:11 11:32 Specimen Type ART ART Sample Site R Brach R Radial pH 7.37 7.35 Bicarbonate Actual 24.2 24.3 Total CO2 26 26 Base Excess -1 -1 O2 Saturation 82 L 91 L O2 % 21.0 2.0 ABG pCO2 41.7 44.2 ABG pO2 48 L 65 L Garrick Test Positive Positive O2 Delivery Device Room Air Cannula Vent Mode Not entered Not entered Cardiology Labs/Tests 07/15/25 11:05: WBC 7.3, RBC 3.19 L, Hgb 9.4 L, Hct 29.7 L, MCV 93.1, MCH 29.5, MCHC 31.6 L, Plt Count 108 L, MPV 10.7, Immature Gran % (Auto) 0.800, Neut % (Auto) 85.6 H, Lymph % (Auto) 6.3 L, [place] % (Auto) 4.9, Eos % (Auto) 2.1, Baso % (Auto) 0.3, Absolute Neuts (auto) 6.3, Nucleated RBC % 0, PT 14.9, INR 1.1, APTT 46.7 H, Sodium 135, Potassium 4.3, Chloride 101, Carbon Dioxide 23.0, Anion Gap 11, BUN 49 H, Creatinine 1.55 H, Est GFR (MDRD) Non-Af 44 L, BUN/Creatinine Ratio 31.3 H, Glucose 114 H, Lactic Acid 1.5, Calcium 8.9, Total Bilirubin 0.57 07/15/25 11:11: pH 7.37, Bicarbonate Actual 24.2, Base Excess -1, O2 Saturation 82 L, ABG pCO2 41.7, ABG pO2 48 L, Garrick Test Positive 07/15/25 11:32: pH 7.35, Bicarbonate Actual 24.3, Base Excess -1, O2 Saturation 91 L, ABG pCO2 44.2, ABG pO2 65 L, Garrick Test Positive 07/15/25 14:00: Urine Color Yellow, Urine Clarity Clear, Urine pH 6.0, Ur Specific [place] 1.015, Urine Protein 30 H, Urine Glucose (UA) Normal, Urine Ketones Negative, Urine Occult Blood Negative, Urine Nitrite Negative, Urine Bilirubin Negative, Urine Urobilinogen Normal, Ur Leukocyte Esterase Negative, Urine RBC 0 SEEN, Urine WBC 0 SEEN Rhythm: EKG: ECHO: Stress Test: Cardiac Cath: PCI: CT Surgery: Holter monitor: EPS: PPM: CXR: Chest CT Scan: Radiography Diagnostic Testing: Radiology Impression Chest X-Ray 07/15/25 10:57 IMPRESSION: Worsening pulmonary edema. Small bilateral pleural effusions. Reading Location: [id number] [id number] Risk Score for UA/STEMI Assesmment (YES = 1) Risk Stratification Applicable: No
[2025-07-15] MEDS: 0.9% Saline Lock 10 ML Syringe IV (16:57)
[2025-07-16] VITALS (23 sets, daily range): BP systolic 93–150; BP diastolic 54–81; PULSE 65–77; RESP 8–28; TEMP 36.4–36.8; O2SAT 82–99; BMI 25.0
[2025-07-16 05:51] LABS: Hematocrit 29.0 % (40-54); Hemoglobin 9.4 g/dL (13.0-16.5); Immature Granulocytes Count 0.050 X10^3/uL (0.0-0.0); Mean Corp Hgb Conc 32.4 g/dL (32-36); Mean Corpuscular Volume 91.5 fL (80-94); Mean Platelet Vol. 9.7 fl (6.2-12.0); NRBC Flagged by Analyzer 0 % (0-5); Platelet Count 110 K/mm3 (150-450); RBC Distribution Width CV 17.4 % (11.6-14.6); RBC Distribution Width SD 59.1 fl (35.1-43.9); Red Blood Count 3.17 M/mm3 (4.6-6.2); White Blood Count 6.9 K/mm3 (4.4-11.0)
[2025-07-16 06:12] LABS: Anion Gap 11 (5-15); BUN 46 mg/dL (4-19); BUN/Creat Ratio 30.3 RATIO (10-20); Calcium,Total 8.6 mg/dL (7.6-11.0); Carbon Dioxide 22.7 mmol/L (21.0-32.0); Chloride 101 mmol/L (98-108); Estimated Creatinine Clearance 34.38 ml/min (50-250); Glucose 97 mg/dL (70-99); Potassium 4.0 mmol/L (3.3-5.1)
[2025-07-16] MEDS: Aspirin E.C. 81 MG Tablet PO (10:53)
[2025-07-16] MEDS: Cholecalciferol (Vit D3) 125 MCG CAPSULE (5,000 UNITS) PO (10:54)
--- NOTE | 2025-07-16 12:33 | VDLE_ITS ---
Reason For Study VL/Venous Duplex US - Wyatt Extrem
--- NOTE | 2025-07-16 12:34 | PCM.PN.CARD ---
Subjective Subjective Reports feeling better however still some conversational dyspnea. Objective Data Vital Signs: Vital Signs Temp Pulse Resp BP Pulse Ox O2 Del Method O2 Flow Rate 97.6 F L 76 20 H 125/61 H 98 Nasal Cannula 2 07/16/25 10:00 07/16/25 11:00 07/16/25 11:00 07/16/25 11:00 07/16/25 11:00 07/16/25 11:00 07/16/25 11:00 FiO2 30 07/16/25 03:04 Oxygen Flow Rate (L/min) 2 Oxygen Delivery Method Nasal Cannula Weight: 164 lb 7.437 oz Body Mass Index (BMI) 25.0 Intake & Output: Intake and Output for Last 24 Hours 07/14/25 07/15/25 07/16/25 23:59 23:59 23:59 Intake Total 881.25 / 881.25 Output Total 600 / 1500 1400 / 1400 Balance 281.25 / -618.75 -1400 / -1400 Lab / Micro Data 07/16/25 05:22 07/16/25 05:22 Labs: Laboratory Results - last 24 hr 07/15/25 11:45: Acetaminophen 11.7 07/15/25 14:00: Urine Color Yellow, Urine Clarity Clear, Urine pH 6.0, Ur Specific [place] 1.015, Urine Protein 30 H, Urine Glucose (UA) Normal, Urine Ketones Negative, Urine Occult Blood Negative, Urine Nitrite Negative, Urine Bilirubin Negative, Urine Urobilinogen Normal, Ur Leukocyte Esterase Negative, Urine RBC 0 SEEN, Urine WBC 0 SEEN, Ur Squamous Epith Cells 0 SEEN, Urine Bacteria 0 SEEN, Urine Mucus 0 SEEN 07/16/25 05:22: WBC 6.9, RBC 3.17 L, Hgb 9.4 L, Hct 29.0 L, MCV 91.5, MCH 29.7, MCHC 32.4, RDW Std Deviation 59.1 H, RDW Coeff of Erma 17.4 H, Plt Count 110 L, MPV 9.7, Immature Gran % (Auto) 0.700, Neut % (Auto) 82.2 H, Lymph % (Auto) 9.5 L, Delta % (Auto) 5.1, Eos % (Auto) 2.2, Baso % (Auto) 0.3, Absolute Neuts (auto) 5.7, Absolute Lymphs (auto) 0.65 L, Nucleated RBC % 0, Sodium 135, Potassium 4.0, Chloride 101, Carbon Dioxide 22.7, Anion Gap 11, BUN 46 H, Creatinine 1.52 H, Estim Creat Clear Calc 34.38 L, Est GFR (MDRD) Non-Af 45 L, BUN/Creatinine Ratio 30.3 H, Glucose 97, Calcium 8.6 Cardiology Labs/Tests 07/15/25 14:00: Urine Color Yellow, Urine Clarity Clear, Urine pH 6.0, Ur Specific [place] 1.015, Urine Protein 30 H, Urine Glucose (UA) Normal, Urine Ketones Negative, Urine Occult Blood Negative, Urine Nitrite Negative, Urine Bilirubin Negative, Urine Urobilinogen Normal, Ur Leukocyte Esterase Negative, Urine RBC 0 SEEN, Urine WBC 0 SEEN 07/16/25 05:22: WBC 6.9, RBC 3.17 L, Hgb 9.4 L, Hct 29.0 L, MCV 91.5, MCH 29.7, MCHC 32.4, Plt Count 110 L, MPV 9.7, Immature Gran % (Auto) 0.700, Neut % (Auto) 82.2 H, Lymph % (Auto) 9.5 L, Delta % (Auto) 5.1, Eos % (Auto) 2.2, Baso % (Auto) 0.3, Absolute Neuts (auto) 5.7, Nucleated RBC % 0, Sodium 135, Potassium 4.0, Chloride 101, Carbon Dioxide 22.7, Anion Gap 11, BUN 46 H, Creatinine 1.52 H, Est GFR (MDRD) Non-Af 45 L, BUN/Creatinine Ratio 30.3 H, Glucose 97, Calcium 8.6 Rhythm: EKG: ECHO: Stress Test: Cardiac Cath: PCI: CT Surgery: Holter monitor: EPS: PPM: CXR: Chest CT Scan: Physical Exam Narrative Comfortable but some conversational dyspnea. Heart sounds 1 and 2 noted. Chest with decreased breath sounds bilateral bases. Alert oriented x 3. 2+ edema right lower extremity. Trace edema left lower extremity. Assessment & Plan Assessment/Plan (1) Acute on chronic systolic and diastolic heart failure, NYHA class 1: PLAN: Continue diuretics. Change furosemide to 40 mg 3 times daily. Start on SGLT2 inhibitor. Start on angiotensin receptor adrienne. I only see allergy listed to lisinopril with a rash. Will start on ARB and monitor. Monitor creatinine. (2) Hypertension: PLAN: Continue beta-adrienne. Start on angiotensin receptor adrienne. If tolerated, then will increase as tolerated. Continue diuretics. (3) Coronary artery disease: PLAN: Status post CABG. Continue aspirin. (4) Dyslipidemia: PLAN: Intolerant of statins. Continue ezetimibe. (5) Chronic kidney disease: QUALIFIERS: Chronic kidney disease stage: stage 3 (moderate) Chronic kidney disease stage 3 subtype: stage 3b (GFR 30-44) Qualified Code(s): N18.32 - Chronic kidney disease, stage 3b PLAN: Monitor creatinine.
--- NOTE | 2025-07-16 13:26 | PCM.PN.HOSP ---
Subjective Subjective Doing well, no issues overnight. Breathing a little bit better. He does appear to be about 20 pounds heavier than his dry weight though unclear how accurate these weight measurements are Objective Data Objective Data Vital Signs: Vital Signs Temp Pulse Resp BP Pulse Ox O2 Del Method O2 Flow Rate 97.6 F L 76 24 H 125/61 H 93 Nasal Cannula 3 07/16/25 10:00 07/16/25 11:00 07/16/25 12:00 07/16/25 11:00 07/16/25 12:01 07/16/25 12:01 07/16/25 12:01 FiO2 30 07/16/25 03:04 Oxygen Flow Rate (L/min) 3 Oxygen Delivery Method Nasal Cannula Weight: 164 lb 7.437 oz Body Mass Index (BMI) 25.0 Intake & Output: Intake and Output for Last 24 Hours 07/15/25 07/16/25 07/17/25 03:59 03:59 03:59 Intake Total 881.25 / 881.25 Output Total 1500 / 1500 500 / 500 Balance -618.75 / -618.75 -500 / -500 Lab / Micro Data 07/16/25 05:22 07/16/25 05:22 Labs: Laboratory Results - last 24 hr 07/15/25 14:00: Urine Color Yellow, Urine Clarity Clear, Urine pH 6.0, Ur Specific [place] 1.015, Urine Protein 30 H, Urine Glucose (UA) Normal, Urine Ketones Negative, Urine Occult Blood Negative, Urine Nitrite Negative, Urine Bilirubin Negative, Urine Urobilinogen Normal, Ur Leukocyte Esterase Negative, Urine RBC 0 SEEN, Urine WBC 0 SEEN, Ur Squamous Epith Cells 0 SEEN, Urine Bacteria 0 SEEN, Urine Mucus 0 SEEN 07/16/25 05:22: WBC 6.9, RBC 3.17 L, Hgb 9.4 L, Hct 29.0 L, MCV 91.5, MCH 29.7, MCHC 32.4, RDW Std Deviation 59.1 H, RDW Coeff of Erma 17.4 H, Plt Count 110 L, MPV 9.7, Immature Gran % (Auto) 0.700, Neut % (Auto) 82.2 H, Lymph % (Auto) 9.5 L, [place] % (Auto) 5.1, Eos % (Auto) 2.2, Baso % (Auto) 0.3, Absolute Neuts (auto) 5.7, Absolute Lymphs (auto) 0.65 L, Nucleated RBC % 0, Sodium 135, Potassium 4.0, Chloride 101, Carbon Dioxide 22.7, Anion Gap 11, BUN 46 H, Creatinine 1.52 H, Estim Creat Clear Calc 34.38 L, Est GFR (MDRD) Non-Af 45 L, BUN/Creatinine Ratio 30.3 H, Glucose 97, Calcium 8.6 Physical Exam Narrative General: Alert, Oriented x3, Cooperative, No apparent distress HEENT: Atraumatic, PERRLA, EOMI, Normocephalic Oral: Moist Mucosa Neck: Supple, No JVD Lungs: Diminished, Normal air movement, No rhonchi, No wheeze, No rales Cardiovascular: Regular rate, Regular Rhythm, Normal S1, Normal S2, No murmurs Abdomen: Soft, Non Tender, Non-Distended, No Hepato-splenomegaly Extremities: Edema, Capillary Refill Less than 3 Seconds Skin: No rashes, No breakdown Musculoskeletal: No Tenderness to Palpation of Joints or Extremities Neurological: No focal neurological deficits, moves all extremities Psych/Mental Status: Normal Affect, Appropriate Assessment & Plan Assessment/Plan (1) HFrEF (heart failure with reduced ejection fraction): PLAN: Acute Echocardiogram from June 25 showed an EF of 45%. Patient had a chest x-ray performed on the that looked unremarkable but now has pulmonary vascular congestion as well as pleural effusions 2 days later. Feel primarily his symptoms are not due to pneumonia but primarily due to CHF. In the absence of fever and leukocytosis I would not be continuing treatment with antibiotics at this time but will continue to diurese him with IV furosemide. Additionally, we will fluid restrict him to 1.5 L/day, check daily weights. Repeat echocardiogram to see if there is been any changes since his echocardiogram 20 days ago, since he has had a CABG in the interim. 07/16/2025: Appears that he is gained 20 pounds, continue with aggressive diuresis, renal function is stable at the moment. Appreciate cardiology's assistance PLAN: Plan Chronic medical additions CAD: Status post CABG. Atrial fibrillation: Reviewed Dr. Laughlin note from the . This is just being treated with amiodarone 200 mg daily. He is not on anticoagulation as he is maintaining normal sinus rhythm. It is his thoughts that that was related with his cardiac surgery. Continue with metoprolol to tartrate Debility: Patient was using a walker when he was discharged from the other hospital. By PT OT evaluation and treat. Hypothyroidism: Continue levothyroxine DVT: Lovenox Charges/Coding Visit Charges Inpatient E&M: 62888 Subs Hosp L2
[2025-07-16] MEDS: 0.9% Saline Lock 10 ML Syringe IV ×2 (14:49→22:03)
--- NOTE | 2025-07-16 16:07 | CHAPLAIN ---
Type of Pastoral Visit _x__ Initial Visit ___ Follow-up Visit ___ On-call Visit ___ General Patient Visit ___ Spiritual Assessment ___ Family Conference ___ Bereavement ___ Rapid Response ___ Code Blue ___ Other (describe below) Pastoral Care Referral From _x__ Patient ___ Family ___ Nurse ___ Physician ___ Formal Waiter/Waitress ___ Hoop Bending Machine Operator ___ Other (describe below) Sacrament/Intervention _x__ Active listening ___ Anointing ___ Mandaeism ___ Bereavement ___ Communion _x__ Lin exploration ___ _x__ Life review _x__ Prayer ___ Reconciliation ___ Sacrament of Sick _x__ Supportive presence ___ Wedding ___ Other (describe below) Pastoral Comments patient is very welcoming and invites this real estate firm manager to sit down and visit; pt reviews his recent heart surgery and then subsequent issues that led to his hospitalization here; pt is strong in lin and speaks of how his relationship to Esteban Manny has changed his life many years ago; pt shares relationships in common with this real estate firm manager; pt has some hesitation and difficulty in getting his words out as he continues to talk; pt is urged by this real estate firm manager to talk more slowly and take breaks; soon the visit ended by real estate firm manager to give pt time to rest; prayer was welcomed
[2025-07-17] VITALS (15 sets, daily range): BP systolic 99–153; BP diastolic 50–76; PULSE 59–70; RESP 18–24; TEMP 36.2–36.7; O2SAT 86–100; BMI 23.1
[2025-07-17 06:58] LABS: Hematocrit 29.3 % (40-54); Hemoglobin 9.4 g/dL (13.0-16.5); Immature Granulocytes Count 0.050 X10^3/uL (0.0-0.0); Mean Corp Hgb Conc 32.1 g/dL (32-36); Mean Corpuscular Volume 92.7 fL (80-94); Mean Platelet Vol. 10.2 fl (6.2-12.0); NRBC Flagged by Analyzer 0 % (0-5); POSITIVE DIFFERENTIAL YES; Platelet Count 104 K/mm3 (150-450); RBC Distribution Width CV 17.8 % (11.6-14.6); RBC Distribution Width SD 60.6 fl (35.1-43.9); Red Blood Count 3.16 M/mm3 (4.6-6.2); White Blood Count 5.9 K/mm3 (4.4-11.0)
[2025-07-17 07:15] LABS: Anion Gap 12 (5-15); BUN 49 mg/dL (4-19); BUN/Creat Ratio 29.0 RATIO (10-20); Calcium,Total 8.6 mg/dL (7.6-11.0); Carbon Dioxide 21.7 mmol/L (21.0-32.0); Chloride 101 mmol/L (98-108); Estimated Creatinine Clearance 30.92 ml/min (50-250); Glucose 100 mg/dL (70-99); Potassium 3.9 mmol/L (3.3-5.1)
[2025-07-17] MEDS: 0.9% Saline Lock 10 ML Syringe IV ×3 (09:12→21:51)
[2025-07-17] MEDS: Cholecalciferol (Vit D3) 125 MCG CAPSULE (5,000 UNITS) PO (09:12)
[2025-07-17] MEDS: Aspirin E.C. 81 MG Tablet PO (09:12)
--- NOTE | 2025-07-17 09:25 | RAD_ITS ---
PROCEDURE: RAD/Chest 1 View (Portable)
--- NOTE | 2025-07-17 09:57 | PCM.PN.HOSP ---
Subjective Subjective Did not get much sleep overnight but breathing a little bit better than he did yesterday Objective Data Objective Data Vital Signs: Vital Signs Temp Pulse Resp BP Pulse Ox O2 Del Method O2 Flow Rate 97.6 F L 64 24 H 110/53 L 98 Nasal Cannula 2 07/17/25 09:00 07/17/25 09:00 07/17/25 09:00 07/17/25 09:00 07/17/25 09:10 07/17/25 09:38 07/17/25 09:38 FiO2 30 07/16/25 03:04 Oxygen Flow Rate (L/min) 2 Oxygen Delivery Method Nasal Cannula Weight: 152 lb 8.958 oz Body Mass Index (BMI) 23.1 Intake & Output: Intake and Output for Last 24 Hours 07/16/25 07/17/25 07/18/25 03:59 03:59 03:59 Intake Total 881.25 / 881.25 480 / 480 Output Total 1500 / 1500 1500 / 1500 400 / 400 Balance -618.75 / -618.75 -1020 / -1020 -400 / -400 Lab / Micro Data 07/17/25 06:40 07/17/25 06:40 Labs: Laboratory Results - last 24 hr 07/17/25 06:40: WBC 5.9, RBC 3.16 L, Hgb 9.4 L, Hct 29.3 L, MCV 92.7, MCH 29.7, MCHC 32.1, RDW Std Deviation 60.6 H, RDW Coeff of Erma 17.8 H, Plt Count 104 L, MPV 10.2, Immature Gran % (Auto) 0.900, Neut % (Auto) 83.3 H, Lymph % (Auto) 9.4 L, [place] % (Auto) 4.9, Eos % (Auto) 1.2, Baso % (Auto) 0.3, Absolute Neuts (auto) 4.9, Absolute Lymphs (auto) 0.55 L, Nucleated RBC % 0, Sodium 135, Potassium 3.9, Chloride 101, Carbon Dioxide 21.7, Anion Gap 12, BUN 49 H, Creatinine 1.69 H, Estim Creat Clear Calc 30.92 L, Est GFR (MDRD) Non-Af 39 L, BUN/Creatinine Ratio 29.0 H, Glucose 100 H, Calcium 8.6 Micro: Microbiology 07/15/25 14:00 Urine, Clean Catch Urine Culture - Final Culture exhibits no growth. Radiography Diagnostic Testing: Radiology Impression Venous Doppler Study 07/16/25 12:33 Interpretation Summary Deep veins of the bilateral lower extremities are patent and compressible segmentally. There is no evidence of bilateral lower extremity deep vein thrombosis. The right great saphenous vein appears patent and compressible segmentally. Ordering Physician: Jaciel Bahena Referring Physician: Dallas Reed M.D. Performed By: Felicita Jeronimo RVT Physical Exam Narrative General: Alert, Oriented x3, Cooperative, No apparent distress HEENT: Atraumatic, PERRLA, EOMI, Normocephalic Oral: Moist Mucosa Neck: Supple, No JVD Lungs: Diminished, Normal air movement, No rhonchi, No wheeze, No rales Cardiovascular: Regular rate, Regular Rhythm, Normal S1, Normal S2, No murmurs Abdomen: Soft, Non Tender, Non-Distended, No Hepato-splenomegaly Extremities: Edema, Capillary Refill Less than 3 Seconds Skin: No rashes, No breakdown Musculoskeletal: No Tenderness to Palpation of Joints or Extremities Neurological: No focal neurological deficits, moves all extremities Psych/Mental Status: Normal Affect, Appropriate Assessment & Plan Assessment/Plan (1) HFrEF (heart failure with reduced ejection fraction): PLAN: Acute Echocardiogram from June 25 showed an EF of 45%. Patient had a chest x-ray performed on the that looked unremarkable but now has pulmonary vascular congestion as well as pleural effusions 2 days later. Feel primarily his symptoms are not due to pneumonia but primarily due to CHF. In the absence of fever and leukocytosis I would not be continuing treatment with antibiotics at this time but will continue to diurese him with IV furosemide. Additionally, we will fluid restrict him to 1.5 L/day, check daily weights. Repeat echocardiogram to see if there is been any changes since his echocardiogram 20 days ago, since he has had a CABG in the interim. 07/16/2025: Appears that he is gained 20 pounds, continue with aggressive diuresis, renal function is stable at the moment. Appreciate cardiology's assistance 07/17/2025: Renal function slightly worse today we will continue to monitor though continue with 3 times daily Lasix at the moment, cardiology started him on Jardiance and losartan PLAN: Plan Chronic medical additions CAD: Status post CABG. Atrial fibrillation: Reviewed Dr. Laughlin note from the . This is just being treated with amiodarone 200 mg daily. He is not on anticoagulation as he is maintaining normal sinus rhythm. It is his thoughts that that was related with his cardiac surgery. Continue with metoprolol to tartrate Debility: Patient was using a walker when he was discharged from the other hospital. By PT OT evaluation and treat. Hypothyroidism: Continue levothyroxine DVT: Lovenox Charges/Coding Visit Charges Inpatient E&M: 45240 Subs Hosp L2
--- NOTE | 2025-07-17 10:11 | PCM.PN.CARD ---
Subjective Subjective Complaining of some shortness of breath. No chest pain. Objective Data Vital Signs: Vital Signs Temp Pulse Resp BP Pulse Ox O2 Del Method O2 Flow Rate 97.6 F L 64 24 H 110/53 L 98 Nasal Cannula 2 07/17/25 09:00 07/17/25 09:00 07/17/25 09:00 07/17/25 09:00 07/17/25 09:10 07/17/25 09:38 07/17/25 09:38 FiO2 30 07/16/25 03:04 Oxygen Flow Rate (L/min) 2 Oxygen Delivery Method Nasal Cannula Weight: 152 lb 8.958 oz Body Mass Index (BMI) 23.1 Intake & Output: Intake and Output for Last 24 Hours 07/15/25 07/16/25 07/17/25 23:59 23:59 23:59 Intake Total 881.25 / 881.25 480 / 480 Output Total 600 / 1500 2400 / 2400 400 / 400 Balance 281.25 / -618.75 -1920 / -1920 -400 / -400 Lab / Micro Data 07/17/25 06:40 07/17/25 06:40 Labs: Laboratory Results - last 24 hr 07/17/25 06:40: WBC 5.9, RBC 3.16 L, Hgb 9.4 L, Hct 29.3 L, MCV 92.7, MCH 29.7, MCHC 32.1, RDW Std Deviation 60.6 H, RDW Coeff of Erma 17.8 H, Plt Count 104 L, MPV 10.2, Immature Gran % (Auto) 0.900, Neut % (Auto) 83.3 H, Lymph % (Auto) 9.4 L, [place] % (Auto) 4.9, Eos % (Auto) 1.2, Baso % (Auto) 0.3, Absolute Neuts (auto) 4.9, Absolute Lymphs (auto) 0.55 L, Nucleated RBC % 0, Sodium 135, Potassium 3.9, Chloride 101, Carbon Dioxide 21.7, Anion Gap 12, BUN 49 H, Creatinine 1.69 H, Estim Creat Clear Calc 30.92 L, Est GFR (MDRD) Non-Af 39 L, BUN/Creatinine Ratio 29.0 H, Glucose 100 H, Calcium 8.6 Micro: Microbiology 07/15/25 14:00 Urine, Clean Catch Urine Culture - Final Culture exhibits no growth. Cardiology Labs/Tests 07/17/25 06:40: WBC 5.9, RBC 3.16 L, Hgb 9.4 L, Hct 29.3 L, MCV 92.7, MCH 29.7, MCHC 32.1, Plt Count 104 L, MPV 10.2, Immature Gran % (Auto) 0.900, Neut % (Auto) 83.3 H, Lymph % (Auto) 9.4 L, [place] % (Auto) 4.9, Eos % (Auto) 1.2, Baso % (Auto) 0.3, Absolute Neuts (auto) 4.9, Nucleated RBC % 0, Sodium 135, Potassium 3.9, Chloride 101, Carbon Dioxide 21.7, Anion Gap 12, BUN 49 H, Creatinine 1.69 H, Est GFR (MDRD) Non-Af 39 L, BUN/Creatinine Ratio 29.0 H, Glucose 100 H, Calcium 8.6 Rhythm: EKG: ECHO: Stress Test: Cardiac Cath: PCI: CT Surgery: Holter monitor: EPS: PPM: CXR: Chest CT Scan: Radiography Diagnostic Testing: Radiology Impression Venous Doppler Study 07/16/25 12:33 Interpretation Summary Deep veins of the bilateral lower extremities are patent and compressible segmentally. There is no evidence of bilateral lower extremity deep vein thrombosis. The right great saphenous vein appears patent and compressible segmentally. Ordering Physician: Jaciel Bahena Referring Physician: Dallas Reed M.D. Performed By: Felicita Jeronimo RVT Physical Exam Narrative Appears comfortable. No distress. Heart sounds 1 and 2 noted. Chest with decreased breath sounds at bilateral bases, particularly right base. 1+ ankle edema right side. No ankle edema left leg. Assessment & Plan Assessment/Plan (1) Acute on chronic systolic and diastolic heart failure, NYHA class 4: PLAN: Continue diuresis. Creatinine mildly up but will monitor. Started on losartan. SGLT2 inhibitors. Beta-blockers. (2) Hypertension: PLAN: Beta-blockers and ARB's. Wean off hydralazine as tolerated. (3) Coronary artery disease: PLAN: Status post CABG. Continue aspirin. (4) Dyslipidemia: PLAN: Intolerant of statins. Continue ezetimibe. (5) Chronic kidney disease: QUALIFIERS: Chronic kidney disease stage: stage 3 (moderate) Chronic kidney disease stage 3 subtype: stage 3b (GFR 30-44) Qualified Code(s): N18.32 - Chronic kidney disease, stage 3b PLAN: Monitor creatinine.
--- NOTE | 2025-07-17 10:45 | CT_ITS ---
PROCEDURE: CT/Chest without Contrast
[2025-07-18] VITALS (14 sets, daily range): BP systolic 125–155; BP diastolic 67–85; PULSE 58–73; RESP 8–24; TEMP 36.6–36.8; O2SAT 86–98; BMI 23.1
[2025-07-18] MEDS: 0.9% Saline Lock 10 ML Syringe IV ×2 (05:08→22:28)
[2025-07-18 06:18] LABS: Anion Gap 10 (5-15); BUN 53 mg/dL (4-19); BUN/Creat Ratio 30.4 RATIO (10-20); Calcium,Total 8.8 mg/dL (7.6-11.0); Carbon Dioxide 24.3 mmol/L (21.0-32.0); Chloride 99 mmol/L (98-108); Estimated Creatinine Clearance 29.86 ml/min (50-250); Glucose 127 mg/dL (70-99); Potassium 3.8 mmol/L (3.3-5.1)
[2025-07-18] MEDS: Aspirin E.C. 81 MG Tablet PO (09:50)
--- NOTE | 2025-07-18 10:16 | CASEMGMT ---
Discharge Planning JIGNESH sent via [facility] to [facility]. Per [facility], pt is active with SN. RN CM updated. Deyanira Lugo DC Planning Asst.
--- NOTE | 2025-07-18 12:15 | ECHOL_ITS ---
Reason For Study ECHO/Echo, Limited Study
--- NOTE | 2025-07-18 12:23 | PCM.PN.HOSP ---
Subjective Subjective No issues overnight, working with speech therapy today. Trying to wean off oxygen as able Objective Data Objective Data Vital Signs: Vital Signs Temp Pulse Resp BP Pulse Ox O2 Del Method O2 Flow Rate 98.2 F 68 22 H 126/68 H 94 Nasal Cannula 2 07/18/25 08:00 07/18/25 09:50 07/18/25 08:00 07/18/25 09:50 07/18/25 08:00 07/18/25 08:01 07/18/25 08:01 FiO2 30 07/16/25 03:04 Oxygen Flow Rate (L/min) 2 Oxygen Delivery Method Nasal Cannula Weight: 151 lb 14.376 oz Body Mass Index (BMI) 23.1 Intake & Output: Intake and Output for Last 24 Hours 07/17/25 07/18/25 07/19/25 03:59 03:59 03:59 Intake Total 480 / 480 1260 / 1260 240 / 240 Output Total 1500 / 1500 1300 / 1300 500 / 500 Balance -1020 / -1020 -40 / -40 -260 / -260 Lab / Micro Data 07/17/25 06:40 07/18/25 05:24 Labs: Laboratory Results - last 24 hr 07/18/25 05:24: Sodium 133, Potassium 3.8, Chloride 99, Carbon Dioxide 24.3, Anion Gap 10, BUN 53 H, Creatinine 1.75 H, Estim Creat Clear Calc 29.86 L, Est GFR (MDRD) Non-Af 38 L, BUN/Creatinine Ratio 30.4 H, Glucose 127 H, Calcium 8.8 Micro: Microbiology 07/15/25 11:20 Blood Culture (Wb) - Venous Blood Culture - Preliminary No growth in 48 hours. 07/15/25 11:05 Blood Culture (Wb) - Left Forearm Blood Culture - Preliminary No growth in 48 hours. 07/15/25 14:00 Urine, Clean Catch Urine Culture - Final Culture exhibits no growth. Physical Exam Narrative General: Alert, Oriented x3, Cooperative, No apparent distress HEENT: Atraumatic, PERRLA, EOMI, Normocephalic Oral: Moist Mucosa Neck: Supple, No JVD Lungs: Diminished, Normal air movement, No rhonchi, No wheeze, No rales Cardiovascular: Regular rate, Regular Rhythm, Normal S1, Normal S2, No murmurs Abdomen: Soft, Non Tender, Non-Distended, No Hepato-splenomegaly Extremities: Edema, Capillary Refill Less than 3 Seconds Skin: No rashes, No breakdown Musculoskeletal: No Tenderness to Palpation of Joints or Extremities Neurological: No focal neurological deficits, moves all extremities Psych/Mental Status: Normal Affect, Appropriate Assessment & Plan Assessment/Plan (1) HFrEF (heart failure with reduced ejection fraction): PLAN: Acute Echocardiogram from June 25 showed an EF of 45%. Patient had a chest x-ray performed on the that looked unremarkable but now has pulmonary vascular congestion as well as pleural effusions 2 days later. Feel primarily his symptoms are not due to pneumonia but primarily due to CHF. In the absence of fever and leukocytosis I would not be continuing treatment with antibiotics at this time but will continue to diurese him with IV furosemide. Additionally, we will fluid restrict him to 1.5 L/day, check daily weights. Repeat echocardiogram to see if there is been any changes since his echocardiogram 20 days ago, since he has had a CABG in the interim. 07/16/2025: Appears that he is gained 20 pounds, continue with aggressive diuresis, renal function is stable at the moment. Appreciate cardiology's assistance 07/17/2025: Renal function slightly worse today we will continue to monitor though continue with 3 times daily Lasix at the moment, cardiology started him on Jardiance and losartan 07/18/2025: Continue with current therapy, if his creatinine rises tomorrow will give him a break on diuresis. Still requiring 2 L nasal cannula. PLAN: Plan Chronic medical additions CAD: Status post CABG. Atrial fibrillation: Reviewed Dr. Laughlin note from the . This is just being treated with amiodarone 200 mg daily. He is not on anticoagulation as he is maintaining normal sinus rhythm. It is his thoughts that that was related with his cardiac surgery. Continue with metoprolol to tartrate Debility: Patient was using a walker when he was discharged from the other hospital. By PT OT evaluation and treat. Hypothyroidism: Continue levothyroxine DVT: Lovenox Charges/Coding Visit Charges Inpatient E&M: 51282 Subs Hosp L2
--- NOTE | 2025-07-18 13:01 | PCM.PN.CARD ---
Subjective Subjective Sitting up in chair. No apparent distress. Per patient, he has had a rough night. Objective Data Vital Signs: Vital Signs Temp Pulse Resp BP Pulse Ox O2 Del Method O2 Flow Rate 98.2 F 68 22 H 126/68 H 94 Nasal Cannula 2 07/18/25 08:00 07/18/25 09:50 07/18/25 08:00 07/18/25 09:50 07/18/25 12:16 07/18/25 08:01 07/18/25 12:16 FiO2 30 07/16/25 03:04 Oxygen Flow Rate (L/min) 2 Oxygen Delivery Method Nasal Cannula Weight: 151 lb 14.376 oz Body Mass Index (BMI) 23.1 Intake & Output: Intake and Output for Last 24 Hours 07/16/25 07/17/25 07/18/25 23:59 23:59 23:59 Intake Total 480 / 480 1260 / 1260 240 / 240 Output Total 2400 / 2400 1300 / 1300 500 / 500 Balance -1920 / -1920 -40 / -40 -260 / -260 Lab / Micro Data 07/17/25 06:40 07/18/25 05:24 Labs: Laboratory Results - last 24 hr 07/18/25 05:24: Sodium 133, Potassium 3.8, Chloride 99, Carbon Dioxide 24.3, Anion Gap 10, BUN 53 H, Creatinine 1.75 H, Estim Creat Clear Calc 29.86 L, Est GFR (MDRD) Non-Af 38 L, BUN/Creatinine Ratio 30.4 H, Glucose 127 H, Calcium 8.8 Micro: Microbiology 07/15/25 11:20 Blood Culture (Wb) - Venous Blood Culture - Preliminary No growth in 48 hours. 07/15/25 11:05 Blood Culture (Wb) - Left Forearm Blood Culture - Preliminary No growth in 48 hours. Cardiology Labs/Tests 07/18/25 05:24: Sodium 133, Potassium 3.8, Chloride 99, Carbon Dioxide 24.3, Anion Gap 10, BUN 53 H, Creatinine 1.75 H, Est GFR (MDRD) Non-Af 38 L, BUN/Creatinine Ratio 30.4 H, Glucose 127 H, Calcium 8.8 Rhythm: EKG: ECHO: Stress Test: Cardiac Cath: PCI: CT Surgery: Holter monitor: EPS: PPM: CXR: Chest CT Scan: Physical Exam Narrative Appears comfortable. No distress. Heart sounds 1 and 2 noted. Chest with decreased breath sounds at bilateral bases, particularly right base. ? Pleural rub. 1+ ankle edema right side. No ankle edema left leg. Assessment & Plan Assessment/Plan (1) Acute on chronic systolic and diastolic heart failure, NYHA class 4: PLAN: Continue diuresis. Creatinine mildly up but will monitor. Started on ARB so up to 25% increase from baseline expected. Continue losartan, SGLT2 inhibitors, beta-blockers. (2) Dyspnea: PLAN: See #1 above. Question of infiltrates on CT scan of chest. No fever or leukocytosis. Suspect pleural rub on examination. Consult pulmonology. (3) Hypertension: PLAN: Beta-blockers and ARB's. Wean off hydralazine as tolerated. (4) Coronary artery disease: PLAN: Status post CABG. Continue aspirin. (5) Dyslipidemia: PLAN: Intolerant of statins. Continue ezetimibe. (6) Chronic kidney disease: QUALIFIERS: Chronic kidney disease stage: stage 3 (moderate) Chronic kidney disease stage 3 subtype: stage 3b (GFR 30-44) Qualified Code(s): N18.32 - Chronic kidney disease, stage 3b PLAN: Monitor creatinine. (7) Pericardial effusion: PLAN: Moderate-sized pericardial effusion reported on CT scan of the chest. Status post CABG. Will check limited echocardiogram.
[2025-07-18 14:50] LABS: Pro- Brain NATRIURETIC PEPTIDE 17760 pg/mL (<=1800)
--- NOTE | 2025-07-18 15:20 | SP.MBSS_ITS ---
Modified Barium Swallow
--- NOTE | 2025-07-18 15:20 | ST.MBS ---
Modified Barium Swallow Patient Information Study Date: 07/18/25 Study Time: 13:00 Direct Billable Minutes: 117 Total Minutes procedure & reportin Diagnosis: RLL PNA J18.9 Referring Physician: Irvin Benedict Reason for Referral: Assess swallow function, assess risk for aspiration, and determine recommendations for least restrictive diet textures and compensatory strategies to improve swallowing safety. Medical History: The patient presented to [facility] ED 07/15/2025 w/ 2-day history of SOB. [facility] In the ED, he had a chest x-ray that showed pulmonary vascular congestion as well as pleural effusions. Patient had been coughing but nothing productive. Pt admitted for management of HFrEF amongst other comorbidities including CAD, A fib, Debility, and Hypothyroidism. ST consulted due to concerns for swallowing difficulty w/ pills and some foods. BSE 07/17/2025 revealed intermittent throat clearing w/ foods, SCREEN DOOR MAKER recommended Easy to Chew textures / Thin liquids w/ MBSS in upcoming sessions for further assessment. Pt w/ increased gurgling, wet quality, and then vomiting w/ po trials w/ SCREEN DOOR MAKER, Sharona, today. He was downgraded to full liquids and pills crushed in and MBSS recommended as soon as able. This SCREEN DOOR MAKER had a cancellation and was able to see the patient for MBSS this afternoon. 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 History of echocardiogram Easy bruising History of IBS Former smoker History of stress test Cardiology follow-up encounter History of irregular heartbeat Preop cardiovascular exam Chronic renal failure, stage 3 (moderate) Stenosis of right internal carotid artery Abdominal aortic 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 Essential hypertension Lumbar disc disease 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 Hyperlipidemia Diverticulosis Pre-operative cardiovascular examination Anemia 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, NYHA class 2 RSV (respiratory syncytial virus pneumonia) Shortness of breath Cough productive of purulent sputum Current Diet Ordered: Full liquids Dentition: Natural Teeth Mental Status: WNL Respiratory Status: Oxygenating on 2L/M nasal cannula Penetration-Aspiration Scale Penetration-Aspiration Scale: OBJECTIVE ASSESSMENT OF SWALLOW FUNCTION (QUANTITATIVE ? PER TRIAL): PENETRATION / ASPIRATION SCALE (DANGELO): 1 = does not enter airway 2 = enters airway/above vocal folds/ejected 3 = enters airway/above vocal folds/not ejected 4 = enters airway/contacts vocal folds/ejected 5 = enters airway/contacts vocal folds/not ejected 6 = enters airway/below vocal folds/ejected 7 = enters airway/below vocal folds/not ejected despite effort 8 = enters airway/below vocal folds/no effort VIDEOFLOROSCOPIC SCALE SCORE (DANGELO): Grade I = aspiration of material that has penetrated into the laryngeal vestibule, intact cough reflex Grade II = aspiration < 10 % of the bolus, intact cough reflex Grade III = aspiration of < 10 % of the bolus, reduced cough reflex or aspiration of > 10 % of the bolus, intact cough reflex Grade IV = aspiration of > 10 % of the bolus, reduced cough reflex Penetration-Aspiration Scale Score Thin Liquid via teaspoon: Result: 5= enters airways/contacts vocal folds/not ejected Thin Liquid via teaspoon Effortful swallow: Result: 2= enter airway/above vocal folds/ejected Thin Liquid via small single sip: cup: Result: 4= enters airway/contacts vocal folds/ejected Thin Liquid via small single sip: cup Effortful swallow: Result: 2= enter airway/above vocal folds/ejected [place] Thick Liquid via small single sip: cup: Result: 2= enter airway/above vocal folds/ejected Pudding via teaspoon: Result: 1= does not enter airway Comment: Esophageal screen - Retention in the upper esophagus. Retention in the lower esophagus w/ retrograde flow to the middle esophagus. Thin Liquid via single sip: straw: Result: 1= does not enter airway Comment: Esophageal screen - Liquid wash did not clear esophageal retention of previous trial. Barium Tablet w/ Thin Liquid wash: Result: 4= enters airway/contacts vocal folds/ejected Comment: Esophageal screen - Retention of barium tablet in the LES w/ retention and retrograde flow of thin liquid wash to the upper esophagus, but remaining below the UES. Thin Liquid via single sip: straw Chin tuck: Result: 8= enters airway/below vocal folds/no effort Thin Liquid via small single sip: cup Effortful swallow Trial 2: Result: 5= enters airways/contacts vocal folds/not ejected [place] Thick Liquid via small single sip: cup Trial 2: Result: 1= does not enter airway Thin Liquid - Single Cup, cough and re-swallow: Result: 2= enter airway/above vocal folds/ejected Thin Liquid via small single sip: cup Effortful swallow Trial 3: Result: 1= does not enter airway Oral Phase Labial Seal: No Labial Escape Tongue Control During Bolus Hold: Posterior escape of greater than half of bolus Bolus Transport/Lingual Motion: Delayed initiation of tongue motion Oral Residue: Residue collection on oral structures Pharyngeal Phase Initiation of Pharyngeal Swallow: Bolus head in pyriforms Soft Palate Elevation: Trace column of contrast/air between soft palate and pharyngeal wall Laryngeal Elevation: Partial superior movement thyroid cart/partial apprx aryt-epig petiole Anterior Hyoid Excursion: Partial anterior movement Epiglottic Movement: Complete inversion Laryngeal Vestibule Closure at Height of Swallow: Incomplete; narrow column of air/contrast in laryngeal vestibule Pharyngeal Stripping Wave: Present - diminished Pharyngoesophageal Segment Opening: Parital distension and partial duration; parital obstruction of flow Tongue Base Retraction: Wide column of contrast between tongue base & post. pharyngeal wall Pharyngeal Residue: Collection of residue within or on pharyngeal structures Esophageal Phase Esophageal Clearance: Esophageal retention w/ retrograde flow below pharyngoesophageal seg. Diagnosis/Impression Diagnosis: Mild oral dysphagia R13.11; Moderate pharyngoesophageal dysphagia R13.14 MBS Impressions: The oral phase is primarily marked by... -Decreased bolus control w/ premature posterior loss of >1/2 of thin liquids to the pyriform sinuses and laryngeal vestibule, increasing risk for aspiration during the swallow. -Delayed tongue motion for A-P transport. -Mild oral residues, which mostly cleared w/ a second swallow as needed. The pharyngeal phase is primarily marked by... -Moderate pharyngeal residue of pudding, which mostly cleared w/ a second swallow. Pt has decreased TB retraction and pharyngeal stripping wave. -Decreased airway closure due to decreased anterior hyoid excursion and laryngeal elevation. -SILENT aspiration of thin liquids via cup w/ chin tuck. Laryngeal penetration to the vocal folds w/ various thin liquid trials w/ reflexive throat clear expelling majority of penetrated barium from the laryngeal vestibule. Effortful swallow was somewhat effective in decreasing risk for aspiration; however, pt was visibly fatiguing by the end of the MBSS. The esophageal phase is primarily marked by... -Retention of barium pudding in the upper esophagus and lower esophagus w/ retrograde flow. Liquid wash was not effective. -Retention of barium tablet in the LES w/ retention and retrograde flow of thin liquid wash to the upper esophagus, but remaining below the UES. Recommendations Diet: Mildly Thick Liquids (Full Mildly Thick Liquid Diet) Compensatory Strategies: Small Bites, Small Sips, Slow Rate, Sitting upright and Remain sitting upright for 30 minutes after PO intake Supervision: Distant Supervision Recommend Repeat Modified Barium Swallow: TBD Need for Skilled Speech Therapy Services: Yes Comment: -Train the patient in use of strategies to decrease risk for aspiration. -Ongoing assessment of diet tolerance of recommended textures. Monitor respiratory status closely. Trial solids after GI intervention for potential diet advancement. Trial thin liquids w/ effortful swallows for potential diet advancement. -Train the patient in a thorough oral care routine. -Train the patient in oropharyngeal exercise program (Katherine, lingual resistance, effortful swallow, Alfredo, CTAR). Recommended Referrals: GI Consult Education Completed: 1. Described result of evaluation., 2. Pt understands evaluation & agrees with goals and treatment plan. and 7. Pt requires further education on strategies & risks. Status Active ST Patient: Active Contact Information [facility] Speech Therapy:: Munira Bolaños M.A. [facility]-SCREEN DOOR MAKER Speech-Language Pathologist [facility] [address] [place] [address] [phone]
--- NOTE | 2025-07-18 16:45 | RAD_ITS ---
PROCEDURE: RAD/Chest 1 View (Portable)
[2025-07-18 17:47] LABS: Magnesium 2.3 mg/dL (1.5-2.2)
[2025-07-19] VITALS (20 sets, daily range): BP systolic 85–149; BP diastolic 37–74; PULSE 56–76; RESP 8–28; TEMP 36.2–36.4; O2SAT 93–99
[2025-07-19 06:28] LABS: Hematocrit 30.7 % (40-54); Hemoglobin 9.8 g/dL (13.0-16.5); Immature Granulocytes Count 0.040 X10^3/uL (0.0-0.0); Mean Corp Hgb Conc 31.9 g/dL (32-36); Mean Corpuscular Volume 91.4 fL (80-94); Mean Platelet Vol. 9.7 fl (6.2-12.0); NRBC Flagged by Analyzer 0 % (0-5); POSITIVE COUNT YES; POSITIVE DIFFERENTIAL YES; Platelet Count 97 K/mm3 (150-450); RBC Distribution Width CV 17.5 % (11.6-14.6); RBC Distribution Width SD 58.7 fl (35.1-43.9); Red Blood Count 3.36 M/mm3 (4.6-6.2); White Blood Count 3.9 K/mm3 (4.4-11.0)
[2025-07-19 07:59] LABS: Anion Gap 11 (5-15); BUN 50 mg/dL (4-19); BUN/Creat Ratio 28.6 RATIO (10-20); Calcium,Total 8.7 mg/dL (7.6-11.0); Carbon Dioxide 25.3 mmol/L (21.0-32.0); Chloride 100 mmol/L (98-108); Estimated Creatinine Clearance 29.86 ml/min (50-250); Glucose 107 mg/dL (70-99); Potassium 3.4 mmol/L (3.3-5.1)
[2025-07-19] MEDS: Cholecalciferol (Vit D3) 125 MCG CAPSULE (5,000 UNITS) PO (10:01)
[2025-07-19] MEDS: Aspirin E.C. 81 MG Tablet PO (10:01)
--- NOTE | 2025-07-19 10:47 | EX.PCM.CONCC ---
Assessment & Plan Assessment/Plan (1) Dyspnea: PLAN: Plan RECOMMENDATIONS: 1. Continue ongoing volume optimization with diuretics, as tolerated by hemodynamics and renal function. 2. Consider right sided ultrasound-guided thoracentesis to aid in weaning from supplemental oxygen. 3. Continue to wean supplemental oxygen to maintain saturations at or above 90%. 4. Encourage incentive spirometer use and mobilize patient as tolerated. IMPRESSIONS: 1. Shortness of breath with hypoxemia Most likely secondary to acute decompensated heart failure following recent CABG. The patient continues to have stigmata of pulmonary edema and pleural effusions on chest imaging along with an elevated BNP, all of which is still suggestive of ongoing heart failure. CT imaging did reveal bilateral pleural effusions, right greater than left. Therefore, could consider ultrasound-guided thoracentesis of the right sided pleural effusion to help facilitate weaning from supplemental oxygen. In the interim, however, ongoing volume optimization with diuretics is indicated. Will defer additional management to cardiology. Low suspicion for underlying pneumonia given lack of fever, white count or sputum production. This note was generated with [employer] dictation software. It may contain incorrect words, spelling, and punctuation that were not noted in checking the note before signing. HPI Consult Data Date of Consult: 07/19/25 HPI Narrative Reason for Consultation: Dyspnea HPI Narrative: The patient is an 85-year-old male, with a history as outlined below, who initially presented to the emergency department on July 15 via EMS with progressive shortness of breath after having undergone a CABG earlier this month at [facility]. At presentation, the patient was noted to have a normal white blood cell count with stable hemoglobin and platelet count. His chest imaging was notable for pulmonary edema and bilateral pleural effusions. The patient denied any pre-existing lung conditions. He does not utilize supplemental oxygen at his baseline. The patient was ultimately admitted to the hospital with consultation placed to cardiology. Attempts at volume optimization with IV diuretic therapy was subsequently undertaken. The patient's oxygen requirement has slowly improved. At the present time, the patient is requiring 2 L/min of supplemental oxygen via nasal cannula. The patient denied the presence of a cough, fevers or chills. He did have a modified barium swallow completed yesterday which demonstrated findings concerning for possible aspiration. The patient is currently documented to be overall net -2.6 [address] for the hospitalization[address] CT chest that was completed on July 17 demonstrated bilateral pleural effusions, right greater than left with patchy infiltrates in the upper lobes. A moderate-sized pericardial effusion was noted. Surface echocardiogram demonstrated an ejection fraction of 45 to 50% with stage III diastolic dysfunction, mildly dilated RV with mild global RV systolic dysfunction, biatrial dilation and right ventricular systolic pressure estimated to be 65 mmHg. [facility] Medical History LV dysfunction Chronic kidney disease Chronic anemia Non-ST elevated myocardial infarction Chest pain Paroxysmal atrial flutter Abnormal stress test Elevated TSH D[place] (acute kidney injury) Acute exacerbation of chronic heart failure Non-ST elevation NV (NSTEMI) New onset atrial flutter Wears hearing aid Wears glasses History of steroid therapy Arthritis History of renal disease TIA (transient ischemic attack) Spigelian hernia Carotid artery stenosis 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 History of echocardiogram Easy bruising History of IBS Former smoker History of stress test Cardiology follow-up encounter History of irregular heartbeat Preop cardiovascular exam Chronic renal failure, stage 3 (moderate) Stenosis of right internal carotid artery Abdominal aortic 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 Essential hypertension Lumbar disc disease 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 Hyperlipidemia Diverticulosis Pre-operative cardiovascular examination Anemia 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, NYHA class 2 RSV (respiratory syncytial virus pneumonia) Shortness of breath Cough productive of purulent sputum Home Medications ?Medication ?Instructions ?Recorded ?Last Taken ?Type doxazosin 8 mg tablet 8 mg PO QHS prostate 05/23/24 07/14/25 History magnesium oxide 400 mg (241.3 mg 400 mg PO DAILY supplement 05/23/24 07/15/25 History magnesium) tablet levothyroxine 25 mcg tablet 25 mcg PO DAILY thyroid 11/28/24 07/15/25 History cholecalciferol (vitamin D3) 125 125 mcg PO DAILY vitamin 01/12/25 07/15/25 History mcg (5,000 unit) tablet (Vitamin D3) amiodarone 200 mg tablet See Rx Instructions PO BID 07/12/25 07/15/25 History furosemide 20 mg tablet (Lasix) 20 mg PO QAM #30 tabs 07/12/25 07/15/25 Rx metoprolol tartrate 50 mg tablet 50 mg PO BID 07/12/25 07/15/25 History acetaminophen 325 mg capsule 650 mg PO Q6H pain 07/15/25 Unknown History acetaminophen 500 mg tablet 1,000 mg PO TID 07/15/25 Unknown History ascorbic acid (vitamin C) 1,000 mg 2,000 mg PO DAILY 07/15/25 07/15/25 History tablet,extended release (C Complex) aspirin 81 mg tablet,delayed 81 mg PO DAILY 07/15/25 07/15/25 History release coenzyme [id number] 100 mg-20 1 cap PO DAILY 07/15/25 07/15/25 History mg capsule ezetimibe 10 mg tablet 10 mg PO DAILY cholesterol 07/15/25 Unknown History ferrous sulfate 325 mg (65 mg 325 mg PO DAILY 07/15/25 07/15/25 History iron) tablet (Meghan-Time) hydralazine 100 mg tablet 100 mg PO TID 07/15/25 07/15/25 History Allergy/AdvReac Type Severity Reaction Status Date / Time lisinopril Allergy Intermediate Rash Verified 07/12/25 13:56 atorvastatin calcium (From Allergy Other Verified 07/12/25 13:56 Lipitor) clonidine Allergy Unknown Verified 07/12/25 13:56 rosuvastatin calcium (From Allergy Other Verified 07/12/25 13:56 Crestor) [id number] Reductase Allergy Other Verified 07/12/25 13:56 Inhibitor (Alriiyg-Cab-Ned Reductase Inhibitor) Family History Father Lung cancer Liver cancer Mother Oral cancer Surgical History History of radiofrequency ablation procedure for cardiac arrhythmia Status post double vessel coronary artery bypass (~06/27/25) S/P spigelian hernia repair, follow-up exam S/P AAA repair (~02/2025) History of right-sided carotid endarterectomy Hx of cataract surgery Hx of appendectomy History of tonsillectomy History of back surgery History of colonoscopy History of blepharoplasty History of inguinal hernia repair History of umbilical hernia repair 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 Social History household members: spouse Smoking Status: Former smoker second hand exposure: No alcohol intake: never substance use type: does not use caffeine: Yes Type: coffee Number of servings: 2 ROS ROS Narrative 10 systems were reviewed with pertinent positives as noted in the HPI above. Physical Exam Const alert, oriented x3 and no apparent distress HEENT normocephalic and head/scalp atraumatic Eyes PERRL, EOMs intact bilaterally and conjunctivae normal Neck supple General: trachea midline Chest inspection of chest normal Resp normal respiratory effort and no use of accessory muscles Resp Narrative: Bilateral crackles noted Effort and Inspection: able to speak in complete sentences Cardio regular rate and regular rhythm GI soft to palpation and non-tender Extremity General Extremity: edema bilateral lower extremity; Negative for clubbing Skin no rashes or lesions noted Neuro CN's II-XII intact bilaterally, moves all extremities and no focal motor deficits Psych cooperative and affect normal Lab / Micro Data 07/19/25 06:09 07/19/25 06:09 Labs: Laboratory Results - last 24 hr 07/18/25 05:24: Magnesium 2.3 H, [place] [id number] H 07/19/25 06:09: WBC 3.9 L, RBC 3.36 L, Hgb 9.8 L, Hct 30.7 L, MCV 91.4, MCH 29.2, MCHC 31.9 L, RDW Std Deviation 58.7 H, RDW Coeff of Erma 17.5 H, Plt Count 97 L, MPV 9.7, Immature Gran % (Auto) 1.000 H, Neut % (Auto) 80.6 H, Lymph % (Auto) 10.2 L, [place] % (Auto) 6.6, Eos % (Auto) 1.3, Baso % (Auto) 0.3, Absolute Neuts (auto) 3.2, Absolute Lymphs (auto) 0.40 L, Nucleated RBC % 0, Sodium 136, Potassium 3.4, Chloride 100, Carbon Dioxide 25.3, Anion Gap 11, BUN 50 H, Creatinine 1.75 H, Estim Creat Clear Calc 29.86 L, Est GFR (MDRD) Non-Af 38 L, BUN/Creatinine Ratio 28.6 H, Glucose 107 H, Calcium 8.7 Imaging Radiology Impression Echocardiogram 07/18/25 12:15 Interpretation Summary The estimated ejection fraction is 45-50 %. Stage 3 diastolic dysfunction. Mildly dilated right ventricle. Mild global right ventricular systolic dysfunction. There is mild biatrial dilatation. Moderate mitral annular calcification. Mild-Moderate (1-2+) mitral valve insufficiency. Moderate pulmonary hypertension. Ordering Physician: Jaciel Bahena Referring Physician: Dallas Reed M.D. Performed By: Shirin Ya [facility] Chest X-Ray 07/18/25 16:45 IMPRESSION: CHF with pulmonary edema and moderate bilateral pleural effusions. Coexisting airspace consolidation and/or atelectasis not excluded. Reading Location: [id number] Charges/Coding Visit Charges Inpatient E&M: 54400 Init Hosp L2
--- NOTE | 2025-07-19 11:17 | US_ITS ---
PROCEDURE: US/Thoracentesis W US
--- NOTE | 2025-07-19 11:19 | PCM.PN.HOSP ---
Subjective Subjective Was placed on BiPAP overnight, there is moderate pleural effusions bilateral and he is diminished will attempt thoracentesis today Objective Data Objective Data Vital Signs: Vital Signs Temp Pulse Resp BP Pulse Ox O2 Del Method O2 Flow Rate 97.6 F L 65 16 145/73 H 94 Bi-pap 2 07/19/25 06:30 07/19/25 10:01 07/19/25 06:55 07/19/25 06:32 07/19/25 06:55 07/19/25 06:55 07/19/25 04:19 FiO2 30 07/19/25 06:55 Oxygen Flow Rate (L/min) 2 Oxygen Delivery Method Bi-pap Weight: 151 lb 14.376 oz Body Mass Index (BMI) 23.1 Intake & Output: Intake and Output for Last 24 Hours 07/18/25 07/19/25 07/20/25 03:59 03:59 03:59 Intake Total 1260 / 1260 1240 / 1240 0 / 0 Output Total 1300 / 1300 1840 / 1840 350 / 350 Balance -40 / -40 -600 / -600 -350 / -350 Lab / Micro Data 07/19/25 06:09 07/19/25 06:09 Labs: Laboratory Results - last 24 hr 07/18/25 05:24: Magnesium 2.3 H, [place] [address] H 07/19/25 06:09: WBC 3.9 L, RBC 3.36 L, Hgb 9.8 L, Hct 30.7 L, MCV 91.4, MCH 29.2, MCHC 31.9 L, RDW Std Deviation 58.7 H, RDW Coeff of Erma 17.5 H, Plt Count 97 L, MPV 9.7, Immature Gran % (Auto) 1.000 H, Neut % (Auto) 80.6 H, Lymph % (Auto) 10.2 L, [place] % (Auto) 6.6, Eos % (Auto) 1.3, Baso % (Auto) 0.3, Absolute Neuts (auto) 3.2, Absolute Lymphs (auto) 0.40 L, Nucleated RBC % 0, Sodium 136, Potassium 3.4, Chloride 100, Carbon Dioxide 25.3, Anion Gap 11, BUN 50 H, Creatinine 1.75 H, Estim Creat Clear Calc 29.86 L, Est GFR (MDRD) Non-Af 38 L, BUN/Creatinine Ratio 28.6 H, Glucose 107 H, Calcium 8.7 Micro: Microbiology 07/15/25 11:20 Blood Culture (Wb) - Venous Blood Culture - Preliminary No growth in 48 hours. 07/15/25 11:05 Blood Culture (Wb) - Left Forearm Blood Culture - Preliminary No growth in 48 hours. 07/15/25 14:00 Urine, Clean Catch Urine Culture - Final Culture exhibits no growth. Radiography Diagnostic Testing: Radiology Impression Echocardiogram 07/18/25 12:15 Interpretation Summary The estimated ejection fraction is 45-50 %. Stage 3 diastolic dysfunction. Mildly dilated right ventricle. Mild global right ventricular systolic dysfunction. There is mild biatrial dilatation. Moderate mitral annular calcification. Mild-Moderate (1-2+) mitral valve insufficiency. Moderate pulmonary hypertension. Ordering Physician: Jaciel Bahena Referring Physician: Dallas Reed M.D. Performed By: Shirin Ya [facility] Chest X-Ray 07/18/25 16:45 IMPRESSION: CHF with pulmonary edema and moderate bilateral pleural effusions. Coexisting airspace consolidation and/or atelectasis not excluded. Reading Location: [facility] Physical Exam Narrative General: Alert, Oriented x3, Cooperative, No apparent distress HEENT: Atraumatic, PERRLA, EOMI, Normocephalic Oral: Moist Mucosa Neck: Supple, No JVD Lungs: Diminished, Normal air movement, No rhonchi, No wheeze, No rales Cardiovascular: Regular rate, Regular Rhythm, Normal S1, Normal S2, No murmurs Abdomen: Soft, Non Tender, Non-Distended, No Hepato-splenomegaly Extremities: Edema, Capillary Refill Less than 3 Seconds Skin: No rashes, No breakdown Musculoskeletal: No Tenderness to Palpation of Joints or Extremities Neurological: No focal neurological deficits, moves all extremities Psych/Mental Status: Normal Affect, Appropriate Assessment & Plan Assessment/Plan (1) HFrEF (heart failure with reduced ejection fraction): PLAN: Acute Echocardiogram from June 25 showed an EF of 45%. Patient had a chest x-ray performed on the that looked unremarkable but now has pulmonary vascular congestion as well as pleural effusions 2 days later. Feel primarily his symptoms are not due to pneumonia but primarily due to CHF. In the absence of fever and leukocytosis I would not be continuing treatment with antibiotics at this time but will continue to diurese him with IV furosemide. Additionally, we will fluid restrict him to 1.5 L/day, check daily weights. Repeat echocardiogram to see if there is been any changes since his echocardiogram 20 days ago, since he has had a CABG in the interim. 07/16/2025: Appears that he is gained 20 pounds, continue with aggressive diuresis, renal function is stable at the moment. Appreciate cardiology's assistance 07/17/2025: Renal function slightly worse today we will continue to monitor though continue with 3 times daily Lasix at the moment, cardiology started him on Jardiance and losartan 07/18/2025: Continue with current therapy, if his creatinine rises tomorrow will give him a break on diuresis. Still requiring 2 L nasal cannula. 07/19/2025: Chest x-ray yesterday with bilateral pleural effusions, appreciate pulmonology's assistance. Will plan for thoracentesis on the right today or tomorrow. Renal function is stabilized continue with the 3 times daily dosing of Lasix PLAN: Plan Chronic medical additions CAD: Status post CABG. Atrial fibrillation: Reviewed Dr. Laughlin note from the . This is just being treated with amiodarone 200 mg daily. He is not on anticoagulation as he is maintaining normal sinus rhythm. It is his thoughts that that was related with his cardiac surgery. Continue with metoprolol tartrate Debility: Patient was using a walker when he was discharged from the other hospital. By PT OT evaluation and treat. Hypothyroidism: Continue levothyroxine DVT: Lovenox Charges/Coding Visit Charges Inpatient E&M: 79953 Subs Hosp L2
[2025-07-19 11:24] LABS: Pro- Brain NATRIURETIC PEPTIDE 18682 pg/mL (<=1800)
[2025-07-19 13:08] LABS: LDH 284 U/L (87-241)
--- NOTE | 2025-07-19 13:22 | CHAPLAIN ---
Type of Pastoral Visit ___ Initial Visit _x__ Follow-up Visit ___ On-call Visit ___ General Patient Visit ___ Spiritual Assessment ___ Family Conference ___ Bereavement ___ Rapid Response ___ Code Blue ___ Other (describe below) Pastoral Care Referral From _x__ Patient ___ Family ___ Nurse ___ Physician ___ Grated Cheese Maker ___ Sas Programmer ___ Other (describe below) Sacrament/Intervention _x__ Active listening ___ Anointing ___ Jain ___ Bereavement ___ Communion ___ Lin exploration ___ ___ Life review ___ Prayer ___ Reconciliation ___ Sacrament of Sick _x__ Supportive presence ___ Wedding ___ Other (describe below) Pastoral Comments patient saw this brim cutter in the hallway and requested a follow up visit; pt is looking more energetic and he speaks easily; pt expresses thanks for the visit previously and introduces his to this brim cutter; updates given on care; an offer of assistance given to patient and spouse but no needs are identified; pt is anticipating visits from family that are making a long drive here
[2025-07-19] MEDS: Lidocaine 2% (20 ml mdv) 20 ML Vial INFILT (13:41)
--- NOTE | 2025-07-19 13:42 | FLU_PTH ---
PATIENT: CAROLINA SY LOC: [facility] U#:[id number] AGE/SX: 85/M ROOM: [facility] RE07/15/[address]: Dr. Irvin Benedict MD : 1940 BED: 1 DIS: 07/23/2025 SPEC #: [id number] RECD: 07/19/25 14:00 STATUS: EDNA ROMERO #: [id number] RYLIE: 07/19/25 13:[address]: Irvin Benedict DEPT: CYTOLOGY RECD BY: August Narvaez ENTERED: 07/20/25 09:31 SP TYPE: Fluid OTHR DR: DO Dr. Lorraine Duong MD Dr. Prakash Chand, MD Dr. Rahsaan Friend, MD Janelle Hanks Dr., FLEET SALESPERSON-C Vicky Turner, FLEET SALESPERSON-C CHRIS Polanco Tissues: A - THORACIC FLUID Procedures: Special Stain Group II Surgery Specimen Level IV Cytospin Fluid HEADER OPERATION: Ultrasound guided thoracentesis PRE-OP DIAGNOSIS: Congestive heart failure TISSUE SUBMITTED: A- Right thoracentesis fluid for cytology DIAGNOSIS CYTOLOGY A. Right pleural fluid, thoracentesis (cytospin, cellblock): - No malignant cells identified. CYTOLOGY STUDY Slides are reviewed. CYTOLOGY GROSS A. Received is 110 ml of [id number]-[id number] fluid labeled with the patient's name and and designated per the requisition as Right thoracentesis fluid. Submitted for cytology and cell block preparation. 07/20/2025 CPT: 42533,85876
[2025-07-19] MEDS: 0.9% Saline Lock 10 ML Syringe IV ×2 (14:59→21:30)
[2025-07-19 15:29] LABS: Auto B Fluid Analyzer BKGD Ct COUNTS W/IN LIMITS (W/IN LIMITS); Source- Body Fluid THORACENTESIS
[2025-07-19 15:30] LABS: Appearance/Body Fluid TURBID; Color/Body Fluid RED
[2025-07-19 15:38] LABS: Body Fluid Mononuclear WBC # 0.329 10^3/uL; Body Fluid Mononuclear WBC % 79.3 %; Body Fluid Polynuclear WBC # 0.086 10^3/uL; Body Fluid Polynuclear WBC % 20.7 %; Red Cell Count/Body Fluid 0.064 10^6/ul; White Blood Count/Body Fluid 0.415 10^3/uL
[2025-07-19 16:06] LABS: Glucose, Body Fluid 104 mg/dL (Not Establ.)
[2025-07-19 18:29] LABS: LDH 380 U/L (87-241)
[2025-07-19 20:23] LABS: Body Fluid QC Type(s) BF3Q
[2025-07-19 20:30] LABS: Plasma Cell/BodyFluid 0 %
[2025-07-20] VITALS (24 sets, daily range): BP systolic 76–126; BP diastolic 36–66; PULSE 57–74; RESP 8–20; TEMP 36.3–36.4; O2SAT 82–99
[2025-07-20 06:05] LABS: Anion Gap 9 (5-15); BUN 46 mg/dL (4-19); BUN/Creat Ratio 27.3 RATIO (10-20); Calcium,Total 8.6 mg/dL (7.6-11.0); Carbon Dioxide 28.7 mmol/L (21.0-32.0); Chloride 101 mmol/L (98-108); Estimated Creatinine Clearance 31.10 ml/min (50-250); Glucose 93 mg/dL (70-99); Potassium 3.2 mmol/L (3.3-5.1)
--- NOTE | 2025-07-20 08:00 | US_ITS ---
PROCEDURE: US/Thoracentesis W US
[2025-07-20] MEDS: Lidocaine 2% (20 ml mdv) 20 ML Vial INFILT (08:46)
[2025-07-20] MEDS: Potassium Chloride Oral Tablet 20 MEQ 40 MEQ PO (10:25)
[2025-07-20] MEDS: Cholecalciferol (Vit D3) 125 MCG CAPSULE (5,000 UNITS) PO (10:28)
[2025-07-20] MEDS: Aspirin E.C. 81 MG Tablet PO (10:30)
--- NOTE | 2025-07-20 10:34 | PCM.PN.HOSP ---
Subjective Subjective Respiratory status seems to have improved after his thoracentesis yesterday, will repeat thoracentesis on the left today Objective Data Objective Data Vital Signs: Vital Signs Temp Pulse Resp BP Pulse Ox O2 Del Method O2 Flow Rate 97.6 F L 72 20 H 99/47 L 99 Nasal Cannula 2 07/20/25 03:30 07/20/25 10:26 07/20/25 09:00 07/20/25 09:00 07/20/25 04:00 07/20/25 09:00 07/20/25 09:00 FiO2 30 07/20/25 04:00 Oxygen Flow Rate (L/min) 2 Oxygen Delivery Method Nasal Cannula Weight: 151 lb 14.376 oz Body Mass Index (BMI) 23.1 Intake & Output: Intake and Output for Last 24 Hours 07/19/25 07/20/25 07/21/25 03:59 03:59 03:59 Intake Total 1240 / 1240 540 / 540 Output Total 1840 / 1840 3050 / 3050 1550 / 1550 Balance -600 / -600 -2510 / -2510 -1550 / -1550 Lab / Micro Data 07/19/25 06:09 07/20/25 04:44 Labs: Laboratory Results - last 24 hr 07/19/25 06:09: Lactate Dehydrogenase 284 H, [place] [address] H, Total Protein 6.4 07/19/25 13:42: Fluid Source THORACENTESIS, Fluid Color RED, Fluid Appearance TURBID, Fluid WBC 0.415, Fluid RBC 0.064, Fluid Tot Cell Count 0.416, Fld Polynuclear WBCs # 0.086, Fld Polynuclear WBCs % 20.7, Fluid Mononuclear WBCs 0.329, Fld Mononuclear WBCs % 79.3, Fluid Neutrophils 16, Fluid Lymphocytes 45, Fluid Monocytes 19, Fluid Plasma Cells 0, Fluid Macrophages 5, Fld Mesothelial Cells 3, Fluid Other Cells 12, Fl Pathologist Comment May follow, Fluid Glucose 104, Fluid Total Protein 3.0, Fluid LDH 571, Fluid Comment 2 SEE COMMENT 07/19/25 16:47: Lactate Dehydrogenase 380 H 07/20/25 04:44: Sodium 139, Potassium 3.2 L, Chloride 101, Carbon Dioxide 28.7, Anion Gap 9, BUN 46 H, Creatinine 1.68 H, Estim Creat Clear Calc 31.10 L, Est GFR (MDRD) Non-Af 40 L, BUN/Creatinine Ratio 27.3 H, Glucose 93, Calcium 8.6 Micro: Microbiology 07/15/25 11:20 Blood Culture (Wb) - Venous Blood Culture - Preliminary No growth in 48 hours. 07/15/25 11:05 Blood Culture (Wb) - Left Forearm Blood Culture - Preliminary No growth in 48 hours. 07/15/25 14:00 Urine, Clean Catch Urine Culture - Final Culture exhibits no growth. Radiography Diagnostic Testing: Radiology Impression Thoracentesis Ultrasound 07/19/25 11:17 IMPRESSION: Successful ultrasound-guided right diagnostic and therapeutic thoracentesis. Laboratory results pending. Reading Location: [place] [address] Physical Exam Narrative General: Alert, Oriented x3, Cooperative, No apparent distress HEENT: Atraumatic, PERRLA, EOMI, Normocephalic Oral: Moist Mucosa Neck: Supple, No JVD Lungs: Diminished, Normal air movement, No rhonchi, No wheeze, No rales Cardiovascular: Regular rate, Regular Rhythm, Normal S1, Normal S2, No murmurs Abdomen: Soft, Non Tender, Non-Distended, No Hepato-splenomegaly Extremities: Edema, Capillary Refill Less than 3 Seconds Skin: No rashes, No breakdown Musculoskeletal: No Tenderness to Palpation of Joints or Extremities Neurological: No focal neurological deficits, moves all extremities Psych/Mental Status: Normal Affect, Appropriate Assessment & Plan Assessment/Plan (1) HFrEF (heart failure with reduced ejection fraction): PLAN: Acute Echocardiogram from June 25 showed an EF of 45%. Patient had a chest x-ray performed on the that looked unremarkable but now has pulmonary vascular congestion as well as pleural effusions 2 days later. Feel primarily his symptoms are not due to pneumonia but primarily due to CHF. In the absence of fever and leukocytosis I would not be continuing treatment with antibiotics at this time but will continue to diurese him with IV furosemide. Additionally, we will fluid restrict him to 1.5 L/day, check daily weights. Repeat echocardiogram to see if there is been any changes since his echocardiogram 20 days ago, since he has had a CABG in the interim. 07/16/2025: Appears that he is gained 20 pounds, continue with aggressive diuresis, renal function is stable at the moment. Appreciate cardiology's assistance 07/17/2025: Renal function slightly worse today we will continue to monitor though continue with 3 times daily Lasix at the moment, cardiology started him on Jardiance and losartan 07/18/2025: Continue with current therapy, if his creatinine rises tomorrow will give him a break on diuresis. Still requiring 2 L nasal cannula. 07/19/2025: Chest x-ray yesterday with bilateral pleural effusions, appreciate pulmonology's assistance. Will plan for thoracentesis on the right today or tomorrow. Renal function is stabilized continue with the 3 times daily dosing of Lasix 07/20/2025: Had 1550 mL removed from his right lung yesterday, will have a left thoracentesis done today. Based on lights criteria his pleural effusion yesterday was exudative however he is post CABG and has been on diuretics both of which can make a transudative effusion appear exudative. He has no signs and symptoms of any disease at the moment that would lead to an exudative effusion. Continue with diuresis, renal function has improved can likely back down to oral Lasix tomorrow morning PLAN: Plan Chronic medical additions CAD: Status post CABG. Atrial fibrillation: Reviewed Dr. Laughlin note from the . This is just being treated with amiodarone 200 mg daily. He is not on anticoagulation as he is maintaining normal sinus rhythm. It is his thoughts that that was related with his cardiac surgery. Continue with metoprolol tartrate Debility: Patient was using a walker when he was discharged from the other hospital. By PT OT evaluation and treat. Hypothyroidism: Continue levothyroxine DVT: Lovenox Charges/Coding Visit Charges Inpatient E&M: 10223 Subs Hosp L2
[2025-07-20 10:39] LABS: Pathologist Comment/Body Fluid Reviewed
--- NOTE | 2025-07-20 12:00 | EGD_PTH ---
PATIENT: CAROLINA SY LOC: [facility]#:[id number] AGE/SX: 85/M ROOM: [facility] RE07/15/[address]: Dr. Irvin Benedict MD : 1940 BED: 1 DIS: 07/23/2025 SPEC #: [id number] RECD: 07/20/25 13:28 STATUS: RYLAN ROMERO #: [id number] RYLIE: 07/20/25 12:[address]: Homer Borjas DEPT: SURGICAL PATHOLOGY RECD BY: August Narvaez ENTERED: 07/20/25 15:18 SP TYPE: EGD BIOPSY OTHR DR: DO Dr. Lorraine Duong MD Dr. Nicholas F Kotsonis, MD Dr. Prakash Chand, MD Dr. Victor Velasquez, MD Heather Evans, PRINTER HELPER-C Vicky Turner, PRINTER HELPER-C CHRIS Polanco Tissues: A - Esophagus, NOS Procedures: Surgery Specimen Level IV Comments: @ Ordering doctor for SUIV edited from to @ by KURT at 07/20/25 1518 @ Submitting doctor edited from to @ by KURT at 07/20/25 1518 HEADER OPERATION: EGD with biopsy and dilation PRE-OP DIAGNOSIS: Dysphagia TISSUE SUBMITTED: A- Distal esophagus biopsy MICROSCOPIC DIAGNOSIS A. Distal esophagus, biopsy: MICROSCOPIC DESCRIPTION Slides are reviewed. GROSS DESCRIPTION A. Received in fixative is one container labeled with the patient's name and designated Distal esophagus biopsy. The specimen consists of multiple irregular fragments of dunn tissue that in aggregate measure 1.7 x 0.8 x 0.1 cm. The specimen is totally submitted in one cassette. LA 07/20/2025 CPT:01311
--- NOTE | 2025-07-20 12:16 | PCM.PRE.AN2 ---
ASA Classification* ASA Classification ASA Classification: 3 Assessment & Plan Anesthesia* Anesthesia Assessment Anesthesia Assessment: Discussed sedation and/or anesthesia options, risks, benefits, and alternatives with patient/parents/legal guardian/POA. Questions invited. The patient/parents/legal guardian/POA seems to understand and agrees to proceed with anesthesia plan. Reviewed the physical assessment, medical history, allergy history and patient home medications list prior to surgery/procedure/anesthetic and documented any changes. Performed airway and anesthesia risk assessments. Anesthesia Type Anesthesia Type: MAC Anesthesia Focused Assessment* Temperature: 97.4 F Pulse Rate: 70 Blood Pressure: 115/63 Respiratory Rate: 18 Pulse Ox: 97 Oxygen Flow Rate (L/min): 2 Fraction of Inspired Oxygen (FIO2): 30 Airway Assessment Mouth opens: >3 cm Mallampati Score: II Labs Anesthesia Preop lab: CBC WBC, (4.4-11.0) 3.9 K/mm3 L 07/19/25, 06:09 RBC, (4.6-6.2) 3.36 M/mm3 L 07/19/25, 06:09 Hgb, (13.0-16.5) 9.8 g/dL L 07/19/25, 06:09 Hct, (40-54) 30.7 % L 07/19/25, 06:09 Plt Count, (150-450) 97 K/mm3 L 07/19/25, 06:09 CHEMISTRY Potassium, (3.3-5.1) 3.2 mmol/L L Today, 04:44 Sodium, (133-145) 139 mmol/L Today, 04:44 Magnesium, (1.5-2.2) 2.3 mg/dL H 07/18/25, 05:24 Phosphorus, (2.7-4.5) 2.5 mg/dL L 05/21/25, 03:55 BUN, (4-19) 46 mg/dL H Today, 04:44 Creatinine, (0.70-1.20) 1.68 mg/dL H Today, 04:44 Glucose, (70-99) 93 mg/dL Today, 04:44 TSH, (0.300-4.200) 5.640 uIU/mL H 06/23/25, 19:25 COAG PT, (11.7-14.9) 14.9 SECONDS 07/15/25, 11:05 Pre-Assessment Diagnosis/Proposed Procedure Planned Operative Procedure(s): EGD Anesthesia History Anesthesia History - chemist water purification: Anesthesia History - chemist water purification Hx Hospitalization Yes: TIA 08/11/24 12:26 Any Problems With Anesthesia No 08/11/24 12:26 Cholinesterase deficiency No 08/11/24 12:26 You/Your Family Experience No 08/11/24 12:26 fever (hyperthermia) with Relationship Recent Exposure to Contagious No 08/31/24 06:39 Disease Does patient have nerve No 08/11/24 12:26 stimulator Patient instructed to have device shut off --Does patient have Pacemaker or ICD? When Was Last Pacemaker Check QUESTION #4 FULL TEXT: You/Your Family Experience fever (hyperthermia) with Anesthesia Last Oral Intake Last Oral intake: Last Oral Intake NPO since Meds taken in AM with sips of water? Meds patient instructed to take am of surgery PONV PONV - chemist water purification: PONV - chemist water purification Female HX of Motion Sickness HX of N/V After Surgery Non-Smoker Duration of Surgery greater than 60 minutes Number of Risk Factors PONV Score Height & Weight Height & Weight: Anesthesia: Height & Weight Height 5 ft 8 in 07/19/25 14:37 Weight: 68.9 kg 07/19/25 14:37 Body Mass Index (BMI) 23.1 07/18/25 03:18 Respiratory Assessment Respiratory Assessment - chemist water purification: Respiratory Tract Infection Hx - chemist water purification Hx Respiratory Tract Infection No 08/11/24 12:26 STOP Sleep Apnea STOP Sleep Apnea - chemist water purification: STOP Sleep Apnea - chemist water purification Hx Hypertension Yes 07/16/25 12:55 Hx Sleep Apnea No 07/15/25 15:17 CPAP No 08/31/24 08:44 BIPAP No 10/11/16 14:05 Do you snore loudly (louder Yes 07/15/25 15:17 than talking or can be heard Do you often feel tired/ No 07/15/25 15:17 fatigued/ sleepy during daytime? Has anyone observed you stop No 07/15/25 15:17 breathing during sleep? STOP Results Positive 07/15/25 15:17 QUESTION #5 FULL TEXT : Do you snore loudly (louder than talking or can be heard through closed doors)? Tobacco Use History Tobacco Use History - chemist water purification: Tobacco Use History - chemist water purification Tobacco Use Cigarettes 05/24/24 14:29 Smoking Status Former smoker 07/15/25 15:17 Hx Tobacco Use No 07/15/25 15:17 Years Smoking 25 07/15/25 15:17 Packs Smoked per Day 1 07/15/25 15:17 Smoking Cessation Date was No - quit smoking greater 07/15/25 15:17 within the last 15 years than 15 years ago Hx Smoking Cessation Date 09/20/1963 07/15/25 15:17 Hx Smoking Cessation No 07/15/25 15:17 Counseling Hematologic Medial History Hematologic Hx - chemist water purification: Hematologic Medical Hx - manager home Hx of Blood Transfusion Yes 07/15/25 15:17 Hx of Transfusion in last 3 Yes 07/15/25 15:17 Months Date of Last Transfusion (if 07/04/25 07/15/25 15:17 within last 3 months) Ever experience any problems No 07/15/25 15:17 with transfusion(s)? Specify any problems Hx of Preganancy in last 3 N/A 07/15/25 15:17 Months Nurse Filling Out Transfusion [email or web address] 07/15/25 15:17 & Questions: Date: 07/15/25 07/15/25 15:17 Time: 15:19 07/15/25 15:17 Patient unable to answer at this time (ie. confused, unrespo /Reproduction History /Reproductive History - chemist water purification: /Reproductive Hx- chemist water purification Hx Now Gestational Age (in weeks): EDC: Hx Hx Para Hx Section SAB No 08/11/24 12:26 Active Medications Active Medications: Current Medications Generic Name Dose Route Start Last Admin Trade Name Freq PRN Reason Stop Dose Admin Acetaminophen 1,000 mg 07/15/25 16:00 07/20/25 06:04 Acetaminophen 500 Mg Tablet PO 1,000 mg TID FOREIGN Administration Amiodarone HCl 200 mg 07/16/25 10:00 07/20/25 10:30 Amiodarone 200 Mg Tablet PO 200 mg DAILY FOREIGN Administration Ascorbic Acid 2,000 mg 07/16/25 10:00 07/20/25 10:34 Ascorbic Acid 500 Mg Tablet PO 2,000 mg DAILY FOREIGN Administration Aspirin 81 mg 07/16/25 08:00 07/20/25 10:30 Aspirin E.C. 81 Mg Tablet PO 81 mg BREAKFAST FOREIGN Administration Cholecalciferol 125 mcg 07/16/25 10:00 07/20/25 10:28 Cholecalciferol (Vit D3) 125 Mcg Capsule (5,000 Units) PO 125 mcg DAILY FOREIGN Administration Doxazosin Mesylate 8 mg 07/15/25 22:00 07/19/25 21:19 Doxazosin 4 Mg Tablet PO 8 mg QHS FOREIGN Administration Empagliflozin 10 mg 07/17/25 10:00 07/20/25 10:34 Empagliflozin 10 Mg Tablet PO 10 mg DAILY FOREIGN Administration Enoxaparin Sodium 30 mg 07/18/25 10:00 07/20/25 10:26 Enoxaparin 30 Mg/0.3 Ml Syringe SC 30 mg DAILY FOREIGN Administration Ferrous Sulfate 325 mg 07/16/25 12:00 07/20/25 10:29 Ferrous Sulfate 325 Mg Tablet PO 325 mg DAILY@1200 FOREIGN Administration Furosemide 40 mg 07/16/25 14:00 07/20/25 06:05 Furosemide 40 Mg/4 Ml Vial IV 40 mg TID FOREIGN Administration Hydralazine HCl 50 mg 07/17/25 14:00 07/20/25 06:04 Hydralazine 50 Mg Tablet PO 50 mg TID FOREIGN Administration Levothyroxine Sodium 25 mcg 07/16/25 06:00 07/20/25 06:04 Levothyroxine 25 Mcg Tablet PO 25 mcg DAILY@0600 FOREIGN Administration Losartan Potassium 25 mg 07/16/25 13:30 07/20/25 10:27 Losartan Potassium 25 Mg Tablet PO 25 mg DAILY [facility] Administration Protocol Metoprolol Tartrate 50 mg 07/15/25 22:00 07/20/25 10:26 Metoprolol Tartrate 50 Mg Tablet PO 50 mg BID FOREIGN Administration Protocol Nitroglycerin 0.4 mg 07/15/25 14:57 Nitroglycerin (Inpatient Use) 0.4 Mg Tab.Subl SL Q5M PRN CARDIAC/CHEST PAIN Ondansetron HCl 4 mg 07/15/25 14:57 Ondansetron 4 Mg/2 Ml Vial IV Q8H PRN PRN NAUSEA/VOMITING Sodium Chloride 10 - 40 ml 07/15/25 15:13 07/19/25 21:30 0.9% Saline Lock 10 Ml Syringe IV 10 ml UD PRN Administration SALINE FLUSH PFSH Medical History LV dysfunction Chronic kidney disease Chronic anemia Non-ST elevated myocardial infarction Chest pain Paroxysmal atrial flutter Abnormal stress test Elevated TSH D[place]TON (acute kidney injury) Acute exacerbation of chronic heart failure Non-ST elevation [place] (NSTEMI) New onset atrial flutter Wears hearing aid Wears glasses History of steroid therapy Arthritis History of renal disease TIA (transient ischemic attack) Spigelian hernia Carotid artery stenosis 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 History of echocardiogram Easy bruising History of IBS Former smoker History of stress test Cardiology follow-up encounter History of irregular heartbeat Preop cardiovascular exam Chronic renal failure, stage 3 (moderate) Stenosis of right internal carotid artery Abdominal aortic 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 Essential hypertension Lumbar disc disease 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 Hyperlipidemia Diverticulosis Pre-operative cardiovascular examination Anemia 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, NYHA class 2 RSV (respiratory syncytial virus pneumonia) Shortness of breath Cough productive of purulent sputum Home Medications ?Medication ?Instructions ?Recorded ?Last Taken ?Type doxazosin 8 mg tablet 8 mg PO QHS prostate 05/23/24 07/14/25 History magnesium oxide 400 mg (241.3 mg 400 mg PO DAILY supplement 05/23/24 07/15/25 History magnesium) tablet levothyroxine 25 mcg tablet 25 mcg PO DAILY thyroid 11/28/24 07/15/25 History cholecalciferol (vitamin D3) 125 125 mcg PO DAILY vitamin 01/12/25 07/15/25 History mcg (5,000 unit) tablet (Vitamin D3) amiodarone 200 mg tablet See Rx Instructions PO BID 07/12/25 07/15/25 History furosemide 20 mg tablet (Lasix) 20 mg PO QAM #30 tabs 07/12/25 07/15/25 Rx metoprolol tartrate 50 mg tablet 50 mg PO BID 07/12/25 07/15/25 History acetaminophen 325 mg capsule 650 mg PO Q6H pain 07/15/25 Unknown History acetaminophen 500 mg tablet 1,000 mg PO TID 07/15/25 Unknown History ascorbic acid (vitamin C) 1,000 mg 2,000 mg PO DAILY 07/15/25 07/15/25 History tablet,extended release (C Complex) aspirin 81 mg tablet,delayed 81 mg PO DAILY 07/15/25 07/15/25 History release coenzyme N41-[id number]-qhsevkmxr 100 mg-20 1 cap PO DAILY 07/15/25 07/15/25 History mg capsule ezetimibe 10 mg tablet 10 mg PO DAILY cholesterol 07/15/25 Unknown History ferrous sulfate 325 mg (65 mg 325 mg PO DAILY 07/15/25 07/15/25 History iron) tablet (Meghan-Time) hydralazine 100 mg tablet 100 mg PO TID 07/15/25 07/15/25 History Allergy/AdvReac Type Severity Reaction Status Date / Time lisinopril Allergy Intermediate Rash Verified 07/12/25 13:56 atorvastatin calcium (From Allergy Other Verified 07/12/25 13:56 Lipitor) clonidine Allergy Unknown Verified 07/12/25 13:56 rosuvastatin calcium (From Allergy Other Verified 07/12/25 13:56 Crestor) Wiottal-DAR-DcL Reductase Allergy Other Verified 07/12/25 13:56 Inhibitor (Siqpval-Vxx-Obt Reductase Inhibitor) Family History Father Lung cancer Liver cancer Mother Oral cancer Surgical History History of radiofrequency ablation procedure for cardiac arrhythmia Status post double vessel coronary artery bypass (~06/27/25) S/P spigelian hernia repair, follow-up exam S/P AAA repair (~02/2025) History of right-sided carotid endarterectomy Hx of cataract surgery Hx of appendectomy History of tonsillectomy History of back surgery History of colonoscopy History of blepharoplasty History of inguinal hernia repair History of umbilical hernia repair 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
--- NOTE | 2025-07-20 12:17 | EX.PCM.CON.G ---
HPI Consult Data Date of Consult: 07/20/25 HPI Narrative Reason for Consultation: Esophageal dysphagia HPI Narrative: CAROLINA SY, is a 85 M who presents with a complicated cardiovascular history status post bypass graft surgery June 2025, recent non-STEMI, left atrial appendage closure due to anemia, aortic aneurysm status post endoluminal stenting with mural thrombus, splenomegaly with thrombocytopenia who presented back to the hospital with worsening shortness of breath secondary to recurrent pleural effusions. I was asked to see him due to esophageal dysphagia. [facility] Medical History LV dysfunction Chronic kidney disease Chronic anemia Non-ST elevated myocardial infarction Chest pain Paroxysmal atrial flutter Abnormal stress test Elevated TSH [place] (acute kidney injury) Acute exacerbation of chronic heart failure Non-ST elevation [place] (NSTEMI) New onset atrial flutter Wears hearing aid Wears glasses History of steroid therapy Arthritis History of renal disease TIA (transient ischemic attack) Spigelian hernia Carotid artery stenosis 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 History of echocardiogram Easy bruising History of IBS Former smoker History of stress test Cardiology follow-up encounter History of irregular heartbeat Preop cardiovascular exam Chronic renal failure, stage 3 (moderate) Stenosis of right internal carotid artery Abdominal aortic 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 Essential hypertension Lumbar disc disease 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 Hyperlipidemia Diverticulosis Pre-operative cardiovascular examination Anemia 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, NYHA class 2 RSV (respiratory syncytial virus pneumonia) Shortness of breath Cough productive of purulent sputum Home Medications ?Medication ?Instructions ?Recorded ?Last Taken ?Type doxazosin 8 mg tablet 8 mg PO QHS prostate 05/23/24 07/14/25 History magnesium oxide 400 mg (241.3 mg 400 mg PO DAILY supplement 05/23/24 07/15/25 History magnesium) tablet levothyroxine 25 mcg tablet 25 mcg PO DAILY thyroid 11/28/24 07/15/25 History cholecalciferol (vitamin D3) 125 125 mcg PO DAILY vitamin 01/12/25 07/15/25 History mcg (5,000 unit) tablet (Vitamin D3) amiodarone 200 mg tablet See Rx Instructions PO BID 07/12/25 07/15/25 History furosemide 20 mg tablet (Lasix) 20 mg PO QAM #30 tabs 07/12/25 07/15/25 Rx metoprolol tartrate 50 mg tablet 50 mg PO BID 07/12/25 07/15/25 History acetaminophen 325 mg capsule 650 mg PO Q6H pain 07/15/25 Unknown History acetaminophen 500 mg tablet 1,000 mg PO TID 07/15/25 Unknown History ascorbic acid (vitamin C) 1,000 mg 2,000 mg PO DAILY 07/15/25 07/15/25 History tablet,extended release (C Complex) aspirin 81 mg tablet,delayed 81 mg PO DAILY 07/15/25 07/15/25 History release coenzyme A19-G-avyvvslvg 100 mg-20 1 cap PO DAILY 07/15/25 07/15/25 History mg capsule ezetimibe 10 mg tablet 10 mg PO DAILY cholesterol 07/15/25 Unknown History ferrous sulfate 325 mg (65 mg 325 mg PO DAILY 07/15/25 07/15/25 History iron) tablet (Meghan-Time) hydralazine 100 mg tablet 100 mg PO TID 07/15/25 07/15/25 History Allergy/AdvReac Type Severity Reaction Status Date / Time lisinopril Allergy Intermediate Rash Verified 07/12/25 13:56 atorvastatin calcium (From Allergy Other Verified 07/12/25 13:56 Lipitor) clonidine Allergy Unknown Verified 07/12/25 13:56 rosuvastatin calcium (From Allergy Other Verified 07/12/25 13:56 Crestor) Ytqgeng-QRG-QqR Reductase Allergy Other Verified 07/12/25 13:56 Inhibitor (Tqbkcyt-Liz-Qpl Reductase Inhibitor) Family History Father Lung cancer Liver cancer Mother Oral cancer Surgical History History of radiofrequency ablation procedure for cardiac arrhythmia Status post double vessel coronary artery bypass (~06/27/25) S/P spigelian hernia repair, follow-up exam S/P AAA repair (~02/2025) History of right-sided carotid endarterectomy Hx of cataract surgery Hx of appendectomy History of tonsillectomy History of back surgery History of colonoscopy History of blepharoplasty History of inguinal hernia repair History of umbilical hernia repair 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 Social History household members: spouse Smoking Status: Former smoker second hand exposure: No alcohol intake: never substance use type: does not use caffeine: Yes Type: coffee Number of servings: 2 ROS Constitutional Constitutional: Denies fatigue, fever(s), poor appetite, weight gain or weight loss Gastrointestinal Gastrointestinal: Denies belching, bloating, change in bowel habits, change in stool character, chewing difficulty, coffee ground emesis, constipation, cramping, diarrhea, dyspepsia, dysphagia, early satiety, excessive flatus, fecal incontinence, heartburn, hematemesis, hematochezia, hemorrhoids, loose stools, melena, nausea, odynophagia, rectal bleeding, tenesmus, vomiting or weight changes Physical Exam Const alert, oriented x3, no apparent distress and healthy appearing General Appearance: cooperative GI normal to inspection, nondistended, normoactive bowel sounds, soft to palpation, non-tender and non-distended Percussion: normal to percussion Rectal Exam: deferred Lab / Micro Data 07/19/25 06:09 07/20/25 04:44 Labs: Laboratory Results - last 24 hr 07/19/25 06:09: Lactate Dehydrogenase 284 H, Total Protein 6.4 07/19/25 13:42: Fluid Source THORACENTESIS, Fluid Color RED, Fluid Appearance TURBID, Fluid WBC 0.415, Fluid RBC 0.064, Fluid Tot Cell Count 0.416, Fld Polynuclear WBCs # 0.086, Fld Polynuclear WBCs % 20.7, Fluid Mononuclear WBCs 0.329, Fld Mononuclear WBCs % 79.3, Fluid Neutrophils 16, Fluid Lymphocytes 45, Fluid Monocytes 19, Fluid Plasma Cells 0, Fluid Macrophages 5, Fld Mesothelial Cells 3, Fluid Other Cells 12, Fl Pathologist Comment Reviewed, Fluid Glucose 104, Fluid Total Protein 3.0, Fluid LDH 571, Fluid Comment 2 SEE COMMENT 07/19/25 16:47: Lactate Dehydrogenase 380 H 07/20/25 04:44: Sodium 139, Potassium 3.2 L, Chloride 101, Carbon Dioxide 28.7, Anion Gap 9, BUN 46 H, Creatinine 1.68 H, Estim Creat Clear Calc 31.10 L, Est GFR (MDRD) Non-Af 40 L, BUN/Creatinine Ratio 27.3 H, Glucose 93, Calcium 8.6 Imaging Radiology Impression Thoracentesis Ultrasound 07/19/25 11:17 IMPRESSION: Successful ultrasound-guided right diagnostic and therapeutic thoracentesis. Laboratory results pending. Reading Location: [facility] Thoracentesis Ultrasound 07/20/25 08:00 IMPRESSION: Successful ultrasound-guided left thoracentesis. Reading Location: [place] [address] Assessment & Plan Assessment/Plan (1) Dysphagia: PLAN: The patient presents a high-risk scenario for any invasive procedure, including an endoscopic evaluation (EGD), due to his multiple severe comorbidities. 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 Thromboembolic Risk:?The presence of an aortic mural thrombus puts him at high risk for an embolic event (e.g., stroke, visceral ischemia). The BREANN closure also implies a history of stroke risk/atrial fibrillation, which is a consideration for periprocedural antithrombotic management. The timing of the recent NSTEMI and CABG (June 2025) means he is likely on antiplatelet/anticoagulant therapy, further complicating the bleeding vs. clotting balance. Cardiopulmonary Risk:?The recent NSTEMI, severe cardiovascular history, and current recurrent pleural effusions (indicating potential heart failure or other significant pulmonary issues) increase the risk associated with sedation/anesthesia and the stress of the procedure. Dysphagia Etiology:?Dysphagia in older patients can be due to mechanical obstruction, motility disorders, or even external compression from an enlarged, ectatic, or aneurysmal aorta (dysphagia aortica). The latter is a beasley consideration given his known aortic aneurysm. Plan Risk Stratification:?Consult with Cardiology, Hematology, and Anesthesiology to fully assess and mitigate the bleeding, thrombotic, and cardiopulmonary risks prior to any procedure. Obtain recent lab work including a complete blood count (CBC) with platelet count and coagulation studies. Procedure Choice: He underwent a a?Videofluoroscopic Swallow Study (VFSS) / Modified Barium Swallow?and a CT of the abdomen pelvis was done, to better understand the nature (oropharyngeal vs. esophageal) and mechanism of dysphagia and potential aspiration risk. I think he he would benefit from an EGD to evaluate his upper GI tract for esophageal varices due to the fact that he does have thrombocytopenia, anemia and recurrent pleural effusions. Pleural effusions could be secondary to hepatic hydrothorax. Thrombocytopenia: Thought to be secondary to splenomegaly. He should undergo ultrasound with Dopplers to see if there is any signs of prehepatic hypertension, posthepatic hypertension or intrahepatic hypertension. I discussed the risk and benefits of the procedure with the patient and he agreed to undergo endoscopic evaluation. Aortic Aneurysm Considerations:?The presence of an aortic aneurysm with mural thrombus necessitates careful scope manipulation to avoid any potential pressure or trauma to the aorta during the procedure. Location/Monitoring:?The procedure should be performed in a monitored setting with full resuscitative capabilities and an experienced anesthesia team given his high-risk status. Informed Consent:?Have a thorough discussion with the patient and his family/proxy about the high risks associated with the procedure in the context of his multiple comorbidities, balancing the diagnostic yield against potential life-threatening complications. Charges/Coding Visit Charges Inpatient E&M: 49729 Init Hosp L3
[2025-07-20] MEDS: Lactated Ringers 1,000 ML 15 ML IV (12:31)
--- NOTE | 2025-07-20 13:19 | OP.EGD_ITS ---
Patient Name: Leana Camejo
--- NOTE | 2025-07-20 13:23 | POSTOP.ANE_ITS ---
Anesthesia: Postop Eval I
--- NOTE | 2025-07-20 13:23 | PCM.POST.ANE ---
Anesthesia: Postop Eval I Current Vital Signs Temperature: 97.5 F Pulse Rate: 57 Blood Pressure: 97/57 Respiratory Rate: 16 Pulse Ox: 97 Oxygen Delivery Method: Room Air Assessment Airway patent: Yes Spontaneous unlabored respirations: Yes Mental status: Awake and Calm nausea: No Vomiting: No Anesthesia Complication: No Fluid Hydration Crystalloid volume administer (ml): 300 Total IV fluid infused: 300 Progress Note Anesthesia document: Postop Eval 1 completed: Yes
[2025-07-20 14:10] LABS: Neutrophil (Segs) 20 %
--- NOTE | 2025-07-20 14:11 | CASEMGMT ---
Discharge Planning A list of?SNF providers including quality and resource use data and consistent with the patient's preferred geographic region, medical needs, and insurance network was created in [facility] Guide.? This list was provided to the RN NALINI. Deyanira Lugo, Discharge Planning Asst.
[2025-07-20 14:12] LABS: Other Cell Type/BF 10 %
[2025-07-20] MEDS: 0.9% Saline Lock 10 ML Syringe IV (14:36)
--- NOTE | 2025-07-20 14:36 | CASEMGMT ---
RN NALINI in to discuss discharge planning. Patient states he feels to weak to return home and would like additional therapy at SNF at discharge. Patient was provided SNF list and states he would prefer [facility] and was agreeable to CM to send referral. Patient had no further questions or concerns. Hospitalist updated regarding plan for SNF at discharge. CHRISTIANO GAYLE updated DC Online Marketing Strategist to send referral to [facility]. CM will continue to follow this patient and plan for a safe discharge.
--- NOTE | 2025-07-20 14:40 | POSTOPAN2_ITS ---
Anesthesia Postop Eval I Sum
--- NOTE | 2025-07-20 14:40 | PCM.POSTANE2 ---
Anesthesia Postop Eval I Sum Postop Eval Completion status Anesthesia document: Postop Eval 1 completed: Yes Anesthesia Postop Eval I Summary Anesthesia Postop Eval I Summary: Anesthesia Postop Eval I: Assessment Summary Airway patent Yes 07/20/25 13:24 [email or web address] Spontaneous unlabored Yes 07/20/25 13:24 [email or web address] respirations Mental status Awake,Calm 07/20/25 13:24 [email or web address] nausea No 07/20/25 13:24 [email or web address] Vomiting No 07/20/25 13:24 [email or web address] Anesthesia Postop Eval I: Fluid Summary Crystalloid volume administer 300 07/20/25 13:24 [email or web address] (ml) Colloids volume administered ( ml) Blood Product volume administered (ml) Total IV fluid infused 300 07/20/25 13:24 [email or web address] Anesthesia Postop Eval I: Summary Notes Anesthesia Complication No 07/20/25 13:24 [email or web address] Anesthesia Complication Comment: Post-operative progress note Anesthesia: Postop Eval II Evaluation Mental status: Awake Pain Level: 0 nausea: No Vomiting: No
--- NOTE | 2025-07-20 15:04 | CASEMGMT ---
Addendum entered by Deyanira Lugo 07/20/25 15:46: [facility] has accepted and are aware that pt will likely discharge over the weekend. Green Sheet and transport form completed and given to RN CM. Deyanira Lugo DC Planning Asst Original Note: Discharge Planning Referral sent via [facility] to [facility]. Deyanira Lugo DC Planning Asst.
--- NOTE | 2025-07-20 15:53 | CASEMGMT ---
PASRR screen completed in the [facility]. Level II review is not required. Copy placed in the pt's chart.
--- NOTE | 2025-07-20 17:13 | CASEMGMT ---
Social Work Phone call to pt and notified that pt is requesting SNF placement at [facility] and that pt has been accepted and may be ready for discharge over the weekend. Libra is in agreement with the discharge plan. Plan: [facility], when medically ready. Green sheet on the chart to facilitate a weekend discharge. STANTON Elliott
[2025-07-21] VITALS (12 sets, daily range): BP systolic 98–140; BP diastolic 52–69; PULSE 62–78; RESP 18; TEMP 36.4–36.9; O2SAT 92–98; BMI 21.4
[2025-07-21 06:32] LABS: Anion Gap 8 (5-15); BUN 45 mg/dL (4-19); BUN/Creat Ratio 26.2 RATIO (10-20); Calcium,Total 8.7 mg/dL (7.6-11.0); Carbon Dioxide 30.1 mmol/L (21.0-32.0); Chloride 104 mmol/L (98-108); Estimated Creatinine Clearance 28.38 ml/min (50-250); Glucose 84 mg/dL (70-99); Potassium 3.8 mmol/L (3.3-5.1)
--- NOTE | 2025-07-21 08:33 | PCM.PN.CARD ---
Subjective Subjective Patient seen and evaluated. Appears to be doing so much better. Rather cheery this morning Objective Data Vital Signs: Vital Signs Temp Pulse Resp BP Pulse Ox O2 Del Method O2 Flow Rate 97.8 F 63 18 120/60 98 Bi-pap 2 07/21/25 03:55 07/21/25 06:01 07/21/25 03:55 07/21/25 06:01 07/21/25 03:55 07/21/25 03:55 07/20/25 23:00 FiO2 30 07/20/25 12:16 Oxygen Flow Rate (L/min) 2 Oxygen Delivery Method Bi-pap Weight: 140 lb 14.006 oz Body Mass Index (BMI) 21.4 Intake & Output: Intake and Output for Last 24 Hours 07/19/25 07/20/25 07/21/25 23:59 23:59 23:59 Intake Total 540 / 540 1000 / 1000 Output Total 3050 / 3050 1953 / 1953 500 / 500 Balance -2510 / -2510 -953 / -953 -500 / -500 Lab / Micro Data 07/19/25 06:09 07/21/25 05:48 Labs: Laboratory Results - last 24 hr 07/19/25 13:42: Fluid Neutrophils 20, Fluid Lymphocytes 63, Fluid Monocytes 6, Fluid Macrophages Not Reportable, Fld Mesothelial Cells 1, Fluid Other Cells 10, Fl Pathologist Comment Reviewed 07/21/25 05:48: Sodium 142, Potassium 3.8, Chloride 104, Carbon Dioxide 30.1, Anion Gap 8, BUN 45 H, Creatinine 1.72 H, Estim Creat Clear Calc 28.38 L, Est GFR (MDRD) Non-Af 38 L, BUN/Creatinine Ratio 26.2 H, Glucose 84, Calcium 8.7 Micro: Microbiology 07/19/25 13:42 Fluid - Thoracentesis Fluid Gram Stain - Final 07/15/25 11:20 Blood Culture (Wb) - Venous Blood Culture - Final No growth in 5 days. 07/15/25 11:05 Blood Culture (Wb) - Left Forearm Blood Culture - Final No growth in 5 days. Cardiology Labs/Tests 07/21/25 05:48: Sodium 142, Potassium 3.8, Chloride 104, Carbon Dioxide 30.1, Anion Gap 8, BUN 45 H, Creatinine 1.72 H, Est GFR (MDRD) Non-Af 38 L, BUN/Creatinine Ratio 26.2 H, Glucose 84, Calcium 8.7 Rhythm: EKG: ECHO: Stress Test: Cardiac Cath: PCI: CT Surgery: Holter monitor: EPS: PPM: CXR: Chest CT Scan: Radiography Diagnostic Testing: Radiology Impression Thoracentesis Ultrasound 07/20/25 08:00 IMPRESSION: Successful ultrasound-guided left thoracentesis. Reading Location: [place] [id number] Physical Exam Const alert and oriented x3 Orientation / Consciousness: awake HEENT normocephalic Neck full ROM Carotids: normal carotid upstroke Resp Auscultation: diminished lung sounds Cardio regular rate and regular rhythm Rhythm: regular rhythm GI normal to inspection, nondistended, normoactive bowel sounds Extremity no clubbing, cyanosis or edema Assessment & Plan Assessment/Plan (1) Acute on chronic systolic and diastolic heart failure, NYHA class 4: PLAN: He is doing much better at this time his diuretic regimen can be reduced and he can also continue his current guideline directed medical therapy. He will continue the ARB, SGLT2 inhibitor, beta-adrienne and low-dose diuretic. He did have bilateral pleural effusions for which he underwent thoracentesis and is feeling much better. Echocardiogram did not demonstrate any significant pericardial effusion. (2) Hypertension: PLAN: His blood pressure appears to be under much better control at this time. (3) Coronary artery disease: PLAN: Status post CABG. Continue aspirin. (4) Dyslipidemia: PLAN: Intolerant of statins. Continue ezetimibe. (5) Chronic kidney disease: QUALIFIERS: Chronic kidney disease stage: stage 3 (moderate) Chronic kidney disease stage 3 subtype: stage 3b (GFR 30-44) Qualified Code(s): N18.32 - Chronic kidney disease, stage 3b PLAN: Will continue to monitor his kidney issues.
[2025-07-21] MEDS: Cholecalciferol (Vit D3) 125 MCG CAPSULE (5,000 UNITS) PO (11:15)
[2025-07-21] MEDS: Aspirin E.C. 81 MG Tablet PO (11:16)
--- NOTE | 2025-07-21 12:35 | PCM.PN.HOSP ---
Subjective Subjective Doing well, breathing better, feels better than he did when he came in. No issues overnight Objective Data Objective Data Vital Signs: Vital Signs Temp Pulse Resp BP Pulse Ox O2 Del Method O2 Flow Rate 97.7 F L 62 18 102/52 L 94 Room Air 2 07/21/25 11:24 07/21/25 11:24 07/21/25 11:24 07/21/25 11:24 07/21/25 11:24 07/21/25 11:24 07/21/25 10:47 FiO2 30 07/20/25 12:16 Oxygen Flow Rate (L/min) 2 Oxygen Delivery Method Room Air Weight: 140 lb 14.006 oz Body Mass Index (BMI) 21.4 Intake & Output: Intake and Output for Last 24 Hours 07/20/25 07/21/25 07/22/25 03:59 03:59 02:59 Intake Total 540 / 540 1000 / 1000 Output Total 3050 / 3050 1953 / 1953 1000 / 1000 Balance -2510 / -2510 -953 / -953 -1000 / -1000 Lab / Micro Data 07/19/25 06:09 07/21/25 05:48 Labs: Laboratory Results - last 24 hr 07/19/25 13:42: Fluid Neutrophils 20, Fluid Lymphocytes 63, Fluid Monocytes 6, Fluid Macrophages Not Reportable, Fld Mesothelial Cells 1, Fluid Other Cells 10 07/21/25 05:48: Sodium 142, Potassium 3.8, Chloride 104, Carbon Dioxide 30.1, Anion Gap 8, BUN 45 H, Creatinine 1.72 H, Estim Creat Clear Calc 28.38 L, Est GFR (MDRD) Non-Af 38 L, BUN/Creatinine Ratio 26.2 H, Glucose 84, Calcium 8.7 Micro: Microbiology 07/19/25 13:42 Fluid - Thoracentesis Fluid Gram Stain - Final 07/15/25 11:20 Blood Culture (Wb) - Venous Blood Culture - Final No growth in 5 days. 07/15/25 11:05 Blood Culture (Wb) - Left Forearm Blood Culture - Final No growth in 5 days. 07/15/25 14:00 Urine, Clean Catch Urine Culture - Final Culture exhibits no growth. Physical Exam Narrative General: Alert, Oriented x3, Cooperative, No apparent distress HEENT: Atraumatic, PERRLA, EOMI, Normocephalic Oral: Moist Mucosa Neck: Supple, No JVD Lungs: Diminished, Normal air movement, No rhonchi, No wheeze, No rales Cardiovascular: Regular rate, Regular Rhythm, Normal S1, Normal S2, No murmurs Abdomen: Soft, Non Tender, Non-Distended, No Hepato-splenomegaly Extremities: Edema, Capillary Refill Less than 3 Seconds Skin: No rashes, No breakdown Musculoskeletal: No Tenderness to Palpation of Joints or Extremities Neurological: No focal neurological deficits, moves all extremities Psych/Mental Status: Normal Affect, Appropriate Assessment & Plan Assessment/Plan (1) HFrEF (heart failure with reduced ejection fraction): PLAN: Acute Echocardiogram from June 25 showed an EF of 45%. Patient had a chest x-ray performed on the that looked unremarkable but now has pulmonary vascular congestion as well as pleural effusions 2 days later. Feel primarily his symptoms are not due to pneumonia but primarily due to CHF. In the absence of fever and leukocytosis I would not be continuing treatment with antibiotics at this time but will continue to diurese him with IV furosemide. Additionally, we will fluid restrict him to 1.5 L/day, check daily weights. Repeat echocardiogram to see if there is been any changes since his echocardiogram 20 days ago, since he has had a CABG in the interim. 07/16/2025: Appears that he is gained 20 pounds, continue with aggressive diuresis, renal function is stable at the moment. Appreciate cardiology's assistance 07/17/2025: Renal function slightly worse today we will continue to monitor though continue with 3 times daily Lasix at the moment, cardiology started him on Jardiance and losartan 07/18/2025: Continue with current therapy, if his creatinine rises tomorrow will give him a break on diuresis. Still requiring 2 L nasal cannula. 07/19/2025: Chest x-ray yesterday with bilateral pleural effusions, appreciate pulmonology's assistance. Will plan for thoracentesis on the right today or tomorrow. Renal function is stabilized continue with the 3 times daily dosing of Lasix 07/20/2025: Had 1550 mL removed from his right lung yesterday, will have a left thoracentesis done today. Based on lights criteria his pleural effusion yesterday was exudative however he is post CABG and has been on diuretics both of which can make a transudative effusion appear exudative. He has no signs and symptoms of any disease at the moment that would lead to an exudative effusion. Continue with diuresis, renal function has improved can likely back down to oral Lasix tomorrow morning 07/21/2025: Creatinine slightly elevated again to 1.72, IV Lasix discontinued and transition to p.o. Lasix tomorrow morning. PT/OT is recommending placement. Thoracentesis on the left yesterday removed about 850 cc PLAN: Plan Chronic medical additions CAD: Status post CABG. Atrial fibrillation: Reviewed Dr. Laughlin note from the . This is just being treated with amiodarone 200 mg daily. He is not on anticoagulation as he is maintaining normal sinus rhythm. It is his thoughts that that was related with his cardiac surgery. Continue with metoprolol tartrate Debility: Patient was using a walker when he was discharged from the other hospital. By PT OT evaluation and treat. Hypothyroidism: Continue levothyroxine DVT: Lovenox Disposition SNF Charges/Coding Visit Charges Inpatient E&M: 76508 Subs Hosp L2
[2025-07-22] VITALS (8 sets, daily range): BP systolic 113–159; BP diastolic 62–84; PULSE 63–70; RESP 16–18; TEMP 36.5–36.7; O2SAT 93–99
[2025-07-22 05:16] LABS: Hematocrit 29.8 % (40-54); Hemoglobin 9.2 g/dL (13.0-16.5); Immature Granulocytes Count 0.030 X10^3/uL (0.0-0.0); Mean Corp Hgb Conc 30.9 g/dL (32-36); Mean Corpuscular Volume 92.0 fL (80-94); Mean Platelet Vol. 9.6 fl (6.2-12.0); NRBC Flagged by Analyzer 0 % (0-5); POSITIVE COUNT YES; Platelet Count 96 K/mm3 (150-450); RBC Distribution Width CV 17.6 % (11.6-14.6); RBC Distribution Width SD 59.0 fl (35.1-43.9); Red Blood Count 3.24 M/mm3 (4.6-6.2); White Blood Count 4.0 K/mm3 (4.4-11.0)
[2025-07-22 05:41] LABS: Anion Gap 8 (5-15); BUN 43 mg/dL (4-19); BUN/Creat Ratio 24.2 RATIO (10-20); Calcium,Total 8.8 mg/dL (7.6-11.0); Carbon Dioxide 30.9 mmol/L (21.0-32.0); Chloride 103 mmol/L (98-108); Estimated Creatinine Clearance 27.58 ml/min (50-250); Glucose 92 mg/dL (70-99); Potassium 3.9 mmol/L (3.3-5.1)
--- NOTE | 2025-07-22 09:37 | PCM.PN.CARD ---
Subjective Subjective Patient is in no acute respiratory distress and in very good spirits, feels well however continues to use oxygen only at bedtime and currently on room air. He received oral Lasix 40 mg and continues to be on SGLT2 receptor antagonist. Blood pressure is borderline requiring interruption of his hydralazine dosing. Creatinine stable at 1.7. Status post bilateral thoracocentesis Objective Data Vital Signs: Vital Signs Temp Pulse Resp BP Pulse Ox O2 Del Method O2 Flow Rate 98.0 F 67 16 125/64 H 98 Nasal Cannula 2 07/22/25 04:35 07/22/25 04:38 07/22/25 04:35 07/22/25 04:35 07/22/25 04:35 07/22/25 09:14 07/22/25 09:14 FiO2 30 07/20/25 12:16 Oxygen Flow Rate (L/min) 2 Oxygen Delivery Method Nasal Cannula Weight: 140 lb 14.006 oz Body Mass Index (BMI) 21.4 Intake & Output: Intake and Output for Last 24 Hours 07/20/25 07/21/25 07/22/25 23:59 23:59 22:59 Intake Total 1000 / 1000 420 / 420 120 / 120 Output Total 1952 / 1952 2450 / 2450 500 / 500 Balance -953 / -953 -2030 / -2030 -380 / -380 Lab / Micro Data Attestation: I reviewed the patient's lab results. 07/22/25 04:54 07/22/25 04:54 Labs: Laboratory Results - last 24 hr 07/22/25 04:54: WBC 4.0 L, RBC 3.24 L, Hgb 9.2 L, Hct 29.8 L, MCV 92.0, MCH 28.4, MCHC 30.9 L, RDW Std Deviation 59.0 H, RDW Coeff of Erma 17.6 H, Plt Count 96 L, MPV 9.6, Immature Gran % (Auto) 0.800, Neut % (Auto) 55.6, Lymph % (Auto) 23.5, [place] % (Auto) 8.4, Eos % (Auto) 10.9 H, Baso % (Auto) 0.8, Absolute Neuts (auto) 2.2, Absolute Lymphs (auto) 0.93, Nucleated RBC % 0, Sodium 142, Potassium 3.9, Chloride 103, Carbon Dioxide 30.9, Anion Gap 8, BUN 43 H, Creatinine 1.77 H, Estim Creat Clear Calc 27.58 L, Est GFR (MDRD) Non-Af 37 L, BUN/Creatinine Ratio 24.2 H, Glucose 92, Calcium 8.8 Micro: Microbiology 07/19/25 13:42 Fluid - Thoracentesis Fluid Gram Stain - Final 07/19/25 13:42 Fluid - Thoracentesis Fluid Body Fluid Culture - Preliminary No growth-Final to follow Rhythm Strip Rhythm Strip: Sinus Rhythm Cardiology Labs/Tests 07/22/25 04:54: WBC 4.0 L, RBC 3.24 L, Hgb 9.2 L, Hct 29.8 L, MCV 92.0, MCH 28.4, MCHC 30.9 L, Plt Count 96 L, MPV 9.6, Immature Gran % (Auto) 0.800, Neut % (Auto) 55.6, Lymph % (Auto) 23.5, [place] % (Auto) 8.4, Eos % (Auto) 10.9 H, Baso % (Auto) 0.8, Absolute Neuts (auto) 2.2, Nucleated RBC % 0, Sodium 142, Potassium 3.9, Chloride 103, Carbon Dioxide 30.9, Anion Gap 8, BUN 43 H, Creatinine 1.77 H, Est GFR (MDRD) Non-Af 37 L, BUN/Creatinine Ratio 24.2 H, Glucose 92, Calcium 8.8 Rhythm: EKG: Sinus rhythm, LVH, poor R wave progression across the precordial leads with nonspecific ST segment changes ECHO: LVEF 45 to 50%, stage III diastolic dysfunction, mild RV dysfunction, mild biatrial enlargement, moderate pulmonary hypertension and mild to moderate mitral regurgitation Stress Test: CXR: CHF with pulmonary edema and moderate bilateral pleural effusions. Coexisting airspace consolidation and/or atelectasis not excluded. Physical Exam Const alert and oriented x3 HEENT normocephalic and head/scalp atraumatic Eyes PERRL and EOMs intact bilaterally Neck full ROM and no lymphadenopathy Neck Narrative: Mild elevated jugular venous pressure 6 cm water only Lymph Lymphatic: no lymphadenopathy noted Chest Chest Narrative: Diminished air entry bilaterally with basal crackles in both basal lung guy Chest: midline sternotomy incision Resp Auscultation: crackles bilateral Cardio regular rate and regular rhythm GI normal to inspection, nondistended, normoactive bowel sounds no CVA tenderness Back/Spine no CVA tenderness Extremity normal to inspection and no clubbing, cyanosis or edema Skin no rashes or lesions noted Psych mental status grossly normal Assessment & Plan Assessment/Plan (1) Acute on chronic systolic and diastolic heart failure, NYHA class 4: PLAN: Appears to be progressing in the right direction, GDMT were reviewed including low-dose losartan, metoprolol, SGL 2 receptor antagonist, hydralazine, and an oral loop diuretic. Low blood pressure is problematic for any further uptitration of GDMT as well as introduction of MRA's. Will reduce the frequency of hydralazine due to occasional low blood pressure. LVEF 45 to 50% but with significant diastolic abnormality which will have to be followed on a regular basis in the future to ensure improvement. Cardiorenal syndrome is playing a role in further introduction of diuretic treatment but will continue to monitor daily weights and salt restriction orally. (2) Coronary artery disease: PLAN: Status post cardiovascular surgery x 4 in June 27, 2025. LVEF 45 to 50%. On beta-blockers and angiotensin receptor blockers. Continue mono antiplatelet therapy with baby aspirin and statins. Cardiac rehabilitation program to be recommended after his SNF recovery (3) Hypertension: PLAN: Very well-controlled and in fact occasionally hypotension (4) Right lower lobe pneumonia: PLAN: Afebrile and will continue to recommend oxygen at bedtime (5) History of right-sided carotid endarterectomy: PLAN: Stable continue statins and mono antiplatelet therapy (6) Pleural effusion: PLAN: Status post bilateral thoracocentesis however strongly encourage out of bed to chair and increasing the use of incentive spirometer (7) ASCVD (arteriosclerotic cardiovascular disease): PLAN: Status post CABG, will have to recheck echocardiographic study in the future to ensure improvement in LV systolic as well as diastolic function as the most recent echocardiographic study demonstrated stage III diastolic dysfunction with moderate pulmonary hypertension but on oral loop diuretic in addition to SGL 2 receptor antagonist and if diastolic abnormality continues to persist in the future may consider further imaging, i.e. PYP scan
[2025-07-22] MEDS: Cholecalciferol (Vit D3) 125 MCG CAPSULE (5,000 UNITS) PO (09:43)
[2025-07-22] MEDS: Aspirin E.C. 81 MG Tablet PO (09:43)
--- NOTE | 2025-07-22 10:18 | PCM.PN.HOSP ---
Subjective Subjective Feels about the same as yesterday, pending pre-CERT for SNF Objective Data Objective Data Vital Signs: Vital Signs Temp Pulse Resp BP Pulse Ox O2 Del Method O2 Flow Rate 98.0 F 70 18 113/62 99 Room Air 2 07/22/25 09:38 07/22/25 09:41 07/22/25 09:38 07/22/25 09:41 07/22/25 09:38 07/22/25 09:38 07/22/25 09:14 FiO2 30 07/20/25 12:16 Oxygen Flow Rate (L/min) 2 Oxygen Delivery Method Room Air Weight: 140 lb 14.006 oz Body Mass Index (BMI) 21.4 Intake & Output: Intake and Output for Last 24 Hours 07/21/25 07/22/25 07/23/25 03:59 02:59 03:59 Intake Total 1000 / 1000 420 / 420 120 / 120 Output Total 1952 / 1952 2450 / 2450 500 / 500 Balance -953 / -953 -2030 / -2030 -380 / -380 Lab / Micro Data 07/22/25 04:54 07/22/25 04:54 Labs: Laboratory Results - last 24 hr 07/22/25 04:54: WBC 4.0 L, RBC 3.24 L, Hgb 9.2 L, Hct 29.8 L, MCV 92.0, MCH 28.4, MCHC 30.9 L, RDW Std Deviation 59.0 H, RDW Coeff of Erma 17.6 H, Plt Count 96 L, MPV 9.6, Immature Gran % (Auto) 0.800, Neut % (Auto) 55.6, Lymph % (Auto) 23.5, [place] % (Auto) 8.4, Eos % (Auto) 10.9 H, Baso % (Auto) 0.8, Absolute Neuts (auto) 2.2, Absolute Lymphs (auto) 0.93, Nucleated RBC % 0, Sodium 142, Potassium 3.9, Chloride 103, Carbon Dioxide 30.9, Anion Gap 8, BUN 43 H, Creatinine 1.77 H, Estim Creat Clear Calc 27.58 L, Est GFR (MDRD) Non-Af 37 L, BUN/Creatinine Ratio 24.2 H, Glucose 92, Calcium 8.8 Micro: Microbiology 07/19/25 13:42 Fluid - Thoracentesis Fluid Gram Stain - Final 07/19/25 13:42 Fluid - Thoracentesis Fluid Body Fluid Culture - Preliminary No growth-Final to follow 07/19/25 13:42 Fluid - Thoracentesis Fluid Anaerobic Culture - Preliminary No growth in 48 hours. 07/15/25 11:20 Blood Culture (Wb) - Venous Blood Culture - Final No growth in 5 days. 07/15/25 11:05 Blood Culture (Wb) - Left Forearm Blood Culture - Final No growth in 5 days. 07/15/25 14:00 Urine, Clean Catch Urine Culture - Final Culture exhibits no growth. Rhythm Strip Rhythm Strip: Sinus Rhythm Physical Exam Narrative General: Alert, Oriented x3, Cooperative, No apparent distress HEENT: Atraumatic, PERRLA, EOMI, Normocephalic Oral: Moist Mucosa Neck: Supple, No JVD Lungs: Diminished, Normal air movement, No rhonchi, No wheeze, No rales Cardiovascular: Regular rate, Regular Rhythm, Normal S1, Normal S2, No murmurs Abdomen: Soft, Non Tender, Non-Distended, No Hepato-splenomegaly Extremities: Trace edema, Capillary Refill Less than 3 Seconds Skin: No rashes, No breakdown Musculoskeletal: No Tenderness to Palpation of Joints or Extremities Neurological: No focal neurological deficits, moves all extremities Psych/Mental Status: Normal Affect, Appropriate Assessment & Plan Assessment/Plan (1) HFrEF (heart failure with reduced ejection fraction): PLAN: Acute Echocardiogram from June 25 showed an EF of 45%. Patient had a chest x-ray performed on the that looked unremarkable but now has pulmonary vascular congestion as well as pleural effusions 2 days later. Feel primarily his symptoms are not due to pneumonia but primarily due to CHF. In the absence of fever and leukocytosis I would not be continuing treatment with antibiotics at this time but will continue to diurese him with IV furosemide. Additionally, we will fluid restrict him to 1.5 L/day, check daily weights. Repeat echocardiogram to see if there is been any changes since his echocardiogram 20 days ago, since he has had a CABG in the interim. 07/16/2025: Appears that he is gained 20 pounds, continue with aggressive diuresis, renal function is stable at the moment. Appreciate cardiology's assistance 07/17/2025: Renal function slightly worse today we will continue to monitor though continue with 3 times daily Lasix at the moment, cardiology started him on Jardiance and losartan 07/18/2025: Continue with current therapy, if his creatinine rises tomorrow will give him a break on diuresis. Still requiring 2 L nasal cannula. 07/19/2025: Chest x-ray yesterday with bilateral pleural effusions, appreciate pulmonology's assistance. Will plan for thoracentesis on the right today or tomorrow. Renal function is stabilized continue with the 3 times daily dosing of Lasix 07/20/2025: Had 1550 mL removed from his right lung yesterday, will have a left thoracentesis done today. Based on lights criteria his pleural effusion yesterday was exudative however he is post CABG and has been on diuretics both of which can make a transudative effusion appear exudative. He has no signs and symptoms of any disease at the moment that would lead to an exudative effusion. Continue with diuresis, renal function has improved can likely back down to oral Lasix tomorrow morning 07/21/2025: Creatinine slightly elevated again to 1.72, IV Lasix discontinued and transition to p.o. Lasix tomorrow morning. PT/OT is recommending placement. Thoracentesis on the left yesterday removed about 850 cc 07/22/2025: Continue with p.o. Lasix today, pending pre-CERT for SNF PLAN: Plan Chronic medical additions CAD: Status post CABG. Atrial fibrillation: Reviewed Dr. Laughlin note from the . This is just being treated with amiodarone 200 mg daily. He is not on anticoagulation as he is maintaining normal sinus rhythm. It is his thoughts that that was related with his cardiac surgery. Continue with metoprolol tartrate Debility: Patient was using a walker when he was discharged from the other hospital. By PT OT evaluation and treat. Hypothyroidism: Continue levothyroxine DVT: Lovenox Disposition SNF Charges/Coding Visit Charges Inpatient E&M: 42115 Subs Hosp L2 Reason for DC delay: Precert pending from insurance
[2025-07-23 03:00] VITALS: BP 136/70; PULSE 64; RESP 18; TEMP 36.6; O2SAT 98
[2025-07-23 05:49] VITALS: BMI 20.7
[2025-07-23 06:12] LABS: Anion Gap 7 (5-15); BUN 39 mg/dL (4-19); BUN/Creat Ratio 22.6 RATIO (10-20); Calcium,Total 8.5 mg/dL (7.6-11.0); Carbon Dioxide 33.0 mmol/L (21.0-32.0); Chloride 103 mmol/L (98-108); Estimated Creatinine Clearance 27.18 ml/min (50-250); Glucose 93 mg/dL (70-99); Potassium 4.0 mmol/L (3.3-5.1)
[2025-07-23 08:06] VITALS: O2SAT 98
[2025-07-23 09:00] VITALS: BP 164/75; PULSE 68; RESP 15; TEMP 36.3; O2SAT 98
[2025-07-23] MEDS: Cholecalciferol (Vit D3) 125 MCG CAPSULE (5,000 UNITS) PO (09:08)
[2025-07-23 09:09] VITALS: BP 164/76; PULSE 68
[2025-07-23] MEDS: Aspirin E.C. 81 MG Tablet PO (09:09)
[2025-07-23 09:10] VITALS: PULSE 68
--- NOTE | 2025-07-23 09:46 | PCM.TXEXTCAR ---
Diet Diet Order/Speech Therapy: INPATIENT Hospital Diet / Speech Therapy Order(s) 07/21/25 12:37 Diet: Regular - General Food consistency:: Pureed Liquid Consistency:: [place]/Mildly Thick Type of Dietary Supplement:: Ensure Plus High Protein Fluid restriction:: 1500 mL Diet Comments: 240mL vanilla EPHP only with lunch Speech Therapy Comments: Distant supervision; MEDS CRUSHED IN APPLESAUCE w/ NTL WASH Routine Orders/Code Status Routine Lab Work: CBC and BMP Code Status: Full Code DC O2, CPAP, BIPAP needs Home O2 Discharge instructions: No Wound(s) Chest: Wound Type: Surgical Incision Right posterior back: Wound Type: Puncture Therapies Physical Therapy: Eval and Treat Occupational Therapy: Eval and Treat Problem/Diagnosis (1) HFrEF (heart failure with reduced ejection fraction): Status: Acute Code(s): I50.20 - Unspecified systolic (congestive) heart failure Plan: Acute Echocardiogram from June 25 showed an EF of 45%. Patient had a chest x-ray performed on the that looked unremarkable but now has pulmonary vascular congestion as well as pleural effusions 2 days later. Feel primarily his symptoms are not due to pneumonia but primarily due to CHF. In the absence of fever and leukocytosis I would not be continuing treatment with antibiotics at this time but will continue to diurese him with IV furosemide. Additionally, we will fluid restrict him to 1.5 L/day, check daily weights. Repeat echocardiogram to see if there is been any changes since his echocardiogram 20 days ago, since he has had a CABG in the interim. 07/16/2025: Appears that he is gained 20 pounds, continue with aggressive diuresis, renal function is stable at the moment. Appreciate cardiology's assistance 07/17/2025: Renal function slightly worse today we will continue to monitor though continue with 3 times daily Lasix at the moment, cardiology started him on Jardiance and losartan 07/18/2025: Continue with current therapy, if his creatinine rises tomorrow will give him a break on diuresis. Still requiring 2 L nasal cannula. 07/19/2025: Chest x-ray yesterday with bilateral pleural effusions, appreciate pulmonology's assistance. Will plan for thoracentesis on the right today or tomorrow. Renal function is stabilized continue with the 3 times daily dosing of Lasix 07/20/2025: Had 1550 mL removed from his right lung yesterday, will have a left thoracentesis done today. Based on lights criteria his pleural effusion yesterday was exudative however he is post CABG and has been on diuretics both of which can make a transudative effusion appear exudative. He has no signs and symptoms of any disease at the moment that would lead to an exudative effusion. Continue with diuresis, renal function has improved can likely back down to oral Lasix tomorrow morning 07/21/2025: Creatinine slightly elevated again to 1.72, IV Lasix discontinued and transition to p.o. Lasix tomorrow morning. PT/OT is recommending placement. Thoracentesis on the left yesterday removed about 850 cc 07/22/2025: Continue with p.o. Lasix today, pending pre-CERT for SNF Plan Chronic medical additions CAD: Status post CABG. Atrial fibrillation: Reviewed Dr. Laughlin note from the . This is just being treated with amiodarone 200 mg daily. He is not on anticoagulation as he is maintaining normal sinus rhythm. It is his thoughts that that was related with his cardiac surgery. Continue with metoprolol tartrate Debility: Patient was using a walker when he was discharged from the other hospital. By PT OT evaluation and treat. Hypothyroidism: Continue levothyroxine DVT: Lovenox Disposition SNF Allergies/Procedures Done in Hospital Allergies lisinopril Allergy (Intermediate, Verified 07/20/25 12:28) Rash atorvastatin calcium (From Lipitor) Allergy (Verified 07/20/25 12:28) Other muscle pain clonidine Allergy (Verified 07/20/25 12:28) Unknown rosuvastatin calcium (From Crestor) Allergy (Verified 07/20/25 12:28) Other muscle pain Sodugkw-GUJ-NrS Reductase Inhibitor (Urpruby-Nbr-Qgy Reductase Inhibitor) Allergy (Verified 07/12/25 13:56) Other MUSCLE VERY SORE Procedures: 2-D Echocardiogram and EGD Type of Care/Length of Stay Estimated LOS: Convalescent Care Less Than 30 days Type of Care Needed: Skilled Rehab Potential: Good Prognosis: Good Additional Orders/Day of Discharge Day of Discharge: 07/23/25 Dietary and Speech Recommendations Dietitian Recommendations/Changes: Recommend advanced diet as tolerated to cardiac diet with 1500mL fluid restriction per MD. Will continue 240mL vanilla ensure with lunch. Will monitor weight trends and adjust ONS at needed. Discharge Plan Admission Admit Date/Time: 07/15/25 13:20 Attending Provider: Irvin Benedict Primary Care Provider: Dallas Reed Consulting Providers: Lorraine Mcdowell; Dustin Khan; Brant Alcantara; Homer Borjas; Janelle Barreto; Vicky Turner; Susy Carroll Discharge Orders/Prescriptions Prescriptions: New furosemide 40 mg Tablet 40 mg PO BIDLX Qty: 0 0RF losartan 25 mg Tablet 25 mg PO DAILY Qty: 0 0RF Jardiance 10 mg Tablet 10 mg PO DAILY Qty: 0 0RF Continued amiodarone 200 mg tablet See Rx Instructions PO BID Rx Instructions: [id number], [id number], THEN [id number] metoprolol tartrate 50 mg tablet 50 mg PO BID magnesium oxide 400 mg (241.3 mg magnesium) tablet 400 mg PO DAILY doxazosin 8 mg tablet 8 mg PO QHS cholecalciferol (vitamin D3) [Vitamin D3] 125 mcg (5,000 unit) tablet 125 mcg PO DAILY acetaminophen 500 mg tablet 1,000 mg PO TID hydralazine 100 mg tablet 100 mg PO TID ezetimibe 10 mg tablet 10 mg PO DAILY aspirin 81 mg tablet,delayed release (DR/EC) 81 mg PO DAILY coenzyme [id number] 100-20 mg capsule 1 cap PO DAILY C Complex 1,000 mg tablet extended release 2,000 mg PO DAILY ferrous sulfate [Meghan-Time] 325 mg (65 mg iron) tablet 325 mg PO DAILY acetaminophen 325 mg capsule 650 mg PO Q6H levothyroxine 25 mcg tablet 25 mcg PO DAILY Discontinued furosemide [Lasix] 20 mg tablet 20 mg PO QAM Qty: 30 11RF Referrals / Follow Up: Dallas Reed MD [Primary Care Provider, Internal Medicine] Disposition Disposition (needs filled in before D/C Order can be placed): Care Home Facility
--- NOTE | 2025-07-23 09:59 | CASEMGMT ---
CHRISTIANO GAYLE updated by hospitalist and nursing that patient is wanting to change SNF from [facility] to [facility]. Per hospitalist, patient is ready for discharge. CHRISTIANO GAYLE in to discuss discharge planning with patient. Patient states he would like to change to [facility] as it is closer for his to visit. Patient would like referral sent to [facility], CHRISTIANO GAYLE updated [facility] to send referral. CM will continue to follow this patient and plan for a safe discharge.
--- NOTE | 2025-07-23 10:05 | CASEMGMT ---
Addendum entered by Deyanira Lugo 07/23/25 11:11: [facility] has accepted. CHRISTIANO CM updated. Deyanira Lugo DC Planning Asst. Original Note: Discharge Planning Referral sent via [facility] to [facility]. Deyanira Lugo DC Planning Asst.
--- NOTE | 2025-07-23 11:10 | CASEMGMT ---
CHRISTIANO GAYLE received discharge papers for patient to discharge to [facility] for skilled LOC. CHRISTIANO GAYLE updated DC planning official to complete discharge setup.
--- NOTE | 2025-07-23 11:14 | PHA.DC_ITS ---
Pharmacy DC Med Reconciliation
--- NOTE | 2025-07-23 11:14 | PHA.DC.MR.R ---
Pharmacy [place] Med Reconciliation Pharmacy Service has performed discharge medication reconciliation for this patient. The patient's discharge medication list was reviewed for discrepancies and discrepancies were resolved. Medications at Discharge Home Medications doxazosin 8 mg tablet 8 mg PO QHS prostate 05/23/24 magnesium oxide 400 mg (241.3 mg magnesium) tablet 400 mg PO DAILY supplement 05/23/24 levothyroxine 25 mcg tablet 25 mcg PO DAILY thyroid 11/28/24 cholecalciferol (vitamin D3) 125 mcg (5,000 unit) tablet (Vitamin D3) 125 mcg PO DAILY vitamin 01/12/25 amiodarone 200 mg tablet See Rx Instructions PO BID 07/12/25 metoprolol tartrate 50 mg tablet 50 mg PO BID 07/12/25 acetaminophen 325 mg capsule 650 mg PO Q6H pain 07/15/25 acetaminophen 500 mg tablet 1,000 mg PO TID 07/15/25 ascorbic acid (vitamin C) 1,000 mg tablet,extended release (C Complex) 2,000 mg PO DAILY 07/15/25 aspirin 81 mg tablet,delayed release 81 mg PO DAILY 07/15/25 coenzyme [id number]-[id number]-qqtrtjvst 100 mg-20 mg capsule 1 cap PO DAILY 07/15/25 ezetimibe 10 mg tablet 10 mg PO DAILY cholesterol 07/15/25 ferrous sulfate 325 mg (65 mg iron) tablet (Meghan-Time) 325 mg PO DAILY 07/15/25 hydralazine 100 mg tablet 100 mg PO TID 07/15/25 empagliflozin 10 mg tablet (Jardiance) 10 mg PO DAILY #0 tabs 07/23/25 furosemide 40 mg tablet 40 mg PO BIDLX #0 tabs 07/23/25 losartan 25 mg tablet 25 mg PO DAILY #0 tabs 07/23/25
--- NOTE | 2025-07-23 11:34 | CASEMGMT ---
Discharge Planning Discharge orders, signed med list, and transport time sent via [facility]Port to [facility]. Physicians will transport pt by wheelchair at 12:30p. Nursing, RN CM, and pt updated. Pt will update his . PSYCHIATRIC asked to cancel referral. Deyanira Lugo DC Planning Asst.
[2025-07-23 12:10] VITALS: BP 129/66; PULSE 61; RESP 16; TEMP 36.6; O2SAT 96
--- NOTE | 2025-07-23 13:31 | PCM.DC.SUM ---
Providers Date of Admission: 07/15/25 Primary Care Physician: Dr. Dallas Reed MD Consultations 07/15/25 14:57 Consult: Cardiology Routine Consulting Provider: Lorraine Mcdowell Reason for Consult: CHF exacerbation. EMERGENT Consult: No Notified: Yes Date Notified: 07/15/25 Time Notified: 13:27 Method of Notification: ED Physician Initiated 07/18/25 13:08 Consult: Yard Pilot / Pulmonary Medicine Routine Consulting Provider: Intensivists/Pulmonary Med Reason for Consult: Dyspnea EMERGENT Consult: No Notified: No Date Notified: 07/18/25 Time Notified: 13:09 07/19/25 15:50 Consult: Gastroenterology Routine Consulting Provider: [facility] Reason for Consult: dysphagia EMERGENT Consult: No Notified: Yes Date Notified: 07/19/25 Time Notified: 16:22 Method of Notification: Text Reason For Visit: CHF EXACERBATION Diagnosis Discharge Diagnosis (1) HFrEF (heart failure with reduced ejection fraction): Status: Acute Code(s): I50.20 - Unspecified systolic (congestive) heart failure Plan: Acute Echocardiogram from June 25 showed an EF of 45%. Patient had a chest x-ray performed on the that looked unremarkable but now has pulmonary vascular congestion as well as pleural effusions 2 days later. Feel primarily his symptoms are not due to pneumonia but primarily due to CHF. In the absence of fever and leukocytosis I would not be continuing treatment with antibiotics at this time but will continue to diurese him with IV furosemide. Additionally, we will fluid restrict him to 1.5 L/day, check daily weights. Repeat echocardiogram to see if there is been any changes since his echocardiogram 20 days ago, since he has had a CABG in the interim. 07/16/2025: Appears that he is gained 20 pounds, continue with aggressive diuresis, renal function is stable at the moment. Appreciate cardiology's assistance 07/17/2025: Renal function slightly worse today we will continue to monitor though continue with 3 times daily Lasix at the moment, cardiology started him on Jardiance and losartan 07/18/2025: Continue with current therapy, if his creatinine rises tomorrow will give him a break on diuresis. Still requiring 2 L nasal cannula. 07/19/2025: Chest x-ray yesterday with bilateral pleural effusions, appreciate pulmonology's assistance. Will plan for thoracentesis on the right today or tomorrow. Renal function is stabilized continue with the 3 times daily dosing of Lasix 07/20/2025: Had 1550 mL removed from his right lung yesterday, will have a left thoracentesis done today. Based on lights criteria his pleural effusion yesterday was exudative however he is post CABG and has been on diuretics both of which can make a transudative effusion appear exudative. He has no signs and symptoms of any disease at the moment that would lead to an exudative effusion. Continue with diuresis, renal function has improved can likely back down to oral Lasix tomorrow morning 07/21/2025: Creatinine slightly elevated again to 1.72, IV Lasix discontinued and transition to p.o. Lasix tomorrow morning. PT/OT is recommending placement. Thoracentesis on the left yesterday removed about 850 cc 07/22/2025: Continue with p.o. Lasix today, pending pre-CERT for SNF Plan Chronic medical additions CAD: Status post CABG. Atrial fibrillation: Reviewed Dr. Laughlin note from the . This is just being treated with amiodarone 200 mg daily. He is not on anticoagulation as he is maintaining normal sinus rhythm. It is his thoughts that that was related with his cardiac surgery. Continue with metoprolol tartrate Debility: Patient was using a walker when he was discharged from the other hospital. By PT OT evaluation and treat. Hypothyroidism: Continue levothyroxine DVT: Lovenox Disposition SNF Medications at Discharge Home Medications doxazosin 8 mg tablet 8 mg PO QHS prostate 05/23/24 magnesium oxide 400 mg (241.3 mg magnesium) tablet 400 mg PO DAILY supplement 05/23/24 levothyroxine 25 mcg tablet 25 mcg PO DAILY thyroid 11/28/24 cholecalciferol (vitamin D3) 125 mcg (5,000 unit) tablet (Vitamin D3) 125 mcg PO DAILY vitamin 01/12/25 amiodarone 200 mg tablet See Rx Instructions PO BID 07/12/25 metoprolol tartrate 50 mg tablet 50 mg PO BID 07/12/25 acetaminophen 325 mg capsule 650 mg PO Q6H pain 07/15/25 acetaminophen 500 mg tablet 1,000 mg PO TID 07/15/25 ascorbic acid (vitamin C) 1,000 mg tablet,extended release (C Complex) 2,000 mg PO DAILY 07/15/25 aspirin 81 mg tablet,delayed release 81 mg PO DAILY 07/15/25 coenzyme [id number] 100 mg-20 mg capsule 1 cap PO DAILY 07/15/25 ezetimibe 10 mg tablet 10 mg PO DAILY cholesterol 07/15/25 ferrous sulfate 325 mg (65 mg iron) tablet (Meghan-Time) 325 mg PO DAILY 07/15/25 hydralazine 100 mg tablet 100 mg PO TID 07/15/25 empagliflozin 10 mg tablet (Jardiance) 10 mg PO DAILY #0 tabs 07/23/25 furosemide 40 mg tablet 40 mg PO BIDLX #0 tabs 07/23/25 losartan 25 mg tablet 25 mg PO DAILY #0 tabs 07/23/25 Hospital Course Operations None Procedures 2-D Echocardiogram, EGD and Thoracentesis Summary of Care Provided Minutes Spent on Discharge: 36 Hospital Course: Per HPI: CAROLINA SY, is a 85 M who presents with a 2-day history of shortness of breath. This is an 85-year-old male who underwent a CABG earlier this month at [facility] [place]. He was discharged a week ago and had been doing well up until 2 days ago. 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 Had a chest x-ray that was unremarkable. But over the past 2 days he has become more short of breath. Presented to the emergency room where he had a chest x-ray that showed pulmonary vascular congestion as well as pleural effusions. Patient has been coughing but nothing productive. He does feel chilled but this is more of a chronic process and not new. He received IV furosemide, placed on nitroglycerin drip, received antibiotics and the hospital service was contacted for admission. I went and saw the patient and had respiratory take him off the the BiPAP and he was placed on 2 L nasal cannula and would talk in short shallow senses but was not in any respiratory distress. He maintained his sats between 97 to 100% on 2 L nasal cannula. States that he has gotten short of breath the past couple days, states that he is put on 6 pounds since yesterday. States that he does not restrict his fluid intake. Hospital Course: 85-year-old male presented to the hospital with increasing shortness of breath. He was found to have acute on chronic systolic CHF, he recently had a CABG done at an outside hospital. Cardiology was consulted and we continue with aggressive diuresis but ultimately it necessitated getting thoracentesis bilaterally. He had 1550 cc drained from the right lung and 850 cc drained from the left. Based on studies if they were exudative however he had been on aggressive Lasix and recently had open heart surgery which can make a transudative effusion appear exudative. He is feeling much better was transition to oral Lasix. Renal function has been stable at 1.74 on the day of discharge and he will continue with Lasix 40 mg p.o. twice daily. He was also started on losartan and Jardiance by cardiology given his echocardiogram demonstrating 45 to 50% EF with stage III diastolic dysfunction and mild global right ventricular systolic dysfunction and moderate pulmonary hypertension. He has been breathing much better and I discussed with him the plan for discharge today and he expressed understanding of the risks and benefits of going to the jail and would like to go today. Physical Exam Narrative General: Alert, Oriented x3, Cooperative, No apparent distress HEENT: Atraumatic, PERRLA, EOMI, Normocephalic Oral: Moist Mucosa Neck: Supple, No JVD Lungs: Diminished, Normal air movement, No rhonchi, No wheeze, No rales Cardiovascular: Regular rate, Regular Rhythm, Normal S1, Normal S2, No murmurs Abdomen: Soft, Non Tender, Non-Distended, No Hepato-splenomegaly Extremities: Trace edema, Capillary Refill Less than 3 Seconds Skin: No rashes, No breakdown Musculoskeletal: No Tenderness to Palpation of Joints or Extremities Neurological: No focal neurological deficits, moves all extremities Psych/Mental Status: Normal Affect, Appropriate Weight / BMI Weight Weight: 136 lb 7.458 oz Body Mass Index (BMI) 20.7 ABG / Lab / Microbiology Data 07/22/25 04:54 07/23/25 05:28 Laboratory: Laboratory Results - last 24 hr 07/23/25 05:28: Sodium 143, Potassium 4.0, Chloride 103, Carbon Dioxide 33.0 H, Anion Gap 7, BUN 39 H, Creatinine 1.74 H, Estim Creat Clear Calc 27.18 L, Est GFR (MDRD) Non-Af 38 L, BUN/Creatinine Ratio 22.6 H, Glucose 93, Calcium 8.5 Microbiology: Microbiology 07/19/25 13:42 Fluid - Thoracentesis Fluid Gram Stain - Final 07/19/25 13:42 Fluid - Thoracentesis Fluid Body Fluid Culture - Final Culture exhibits no growth. 07/19/25 13:42 Fluid - Thoracentesis Fluid Anaerobic Culture - Preliminary No growth in 48 hours. 07/15/25 11:20 Blood Culture (Wb) - Venous Blood Culture - Final No growth in 5 days. 07/15/25 11:05 Blood Culture (Wb) - Left Forearm Blood Culture - Final No growth in 5 days. 07/15/25 14:00 Urine, Clean Catch Urine Culture - Final Culture exhibits no growth. D/C Instructions DC O2, CPAP, BIPAP Needs Home O2 Discharge instructions: No Meaningful Use Info Meaningful Use Meaningful Use Diagnoses (Choose all that apply): None applicable Discharge Plan Admission Admit Date/Time: 07/15/25 13:20 Attending Provider: Irvin Benedict Primary Care Provider: Dallas Reed Consulting Providers: Lorraine Mcdowell; Dustin Khan; Brant Alcantara; Homer Borjas; Janelle Barreto; Vicky Turner; Susy Carroll Discharge Orders/Prescriptions Prescriptions: New furosemide 40 mg Tablet 40 mg PO BIDLX Qty: 0 0RF losartan 25 mg Tablet 25 mg PO DAILY Qty: 0 0RF Jardiance 10 mg Tablet 10 mg PO DAILY Qty: 0 0RF Continued amiodarone 200 mg tablet See Rx Instructions PO BID Rx Instructions: [id number], [id number], THEN [id number] metoprolol tartrate 50 mg tablet 50 mg PO BID magnesium oxide 400 mg (241.3 mg magnesium) tablet 400 mg PO DAILY doxazosin 8 mg tablet 8 mg PO QHS cholecalciferol (vitamin D3) [Vitamin D3] 125 mcg (5,000 unit) tablet 125 mcg PO DAILY acetaminophen 500 mg tablet 1,000 mg PO TID hydralazine 100 mg tablet 100 mg PO TID ezetimibe 10 mg tablet 10 mg PO DAILY aspirin 81 mg tablet,delayed release (DR/EC) 81 mg PO DAILY coenzyme [id number]-[id number] 100-20 mg capsule 1 cap PO DAILY C Complex 1,000 mg tablet extended release 2,000 mg PO DAILY ferrous sulfate [Meghan-Time] 325 mg (65 mg iron) tablet 325 mg PO DAILY acetaminophen 325 mg capsule 650 mg PO Q6H levothyroxine 25 mcg tablet 25 mcg PO DAILY Discontinued furosemide [Lasix] 20 mg tablet 20 mg PO QAM Qty: 30 11RF Referrals / Follow Up: Dallas Reed MD [Primary Care Provider, Internal Medicine] Disposition Disposition (needs filled in before D/C Order can be placed): [facility] Facility Charges/Coding Visit Charges Inpatient E&M: 73603 Disch Hosp >30min
== END 2025-07-23 12:52 | disposition skilled nursing facility (03) | DRG 291 ==
LOC: ED 12:43 → PCU 14:01
PROVIDERS: Internal Medicine Cardiovascular Disease; Internal Medicine Critical Care Medicine; Internal Medicine Gastroenterology; Emergency Provider Emergency Medicine; PCP Internal Medicine; Visit Provider Family Medicine
PROC: 0DJ08ZZ Inspection of Upper Intestinal Tract, Via Natural or Artificial Opening Endoscopic (ICD-10-PCS; CPT 43235; principal; 2025-07-20 11:55)
DX: I13.0 Hypertensive heart and chronic kidney disease with heart failure and stage 1 through stage 4 chronic kidney disease, or unspecified chronic kidney disease (principal); I50.43 Acute on chronic combined systolic (congestive) and diastolic (congestive) heart failure; J90 Pleural effusion, not elsewhere classified; D69.59 Other secondary thrombocytopenia; N18.32 Chronic kidney disease, stage 3b; E03.9 Hypothyroidism, unspecified; I48.0 Paroxysmal atrial fibrillation; E78.5 Hyperlipidemia, unspecified; I25.10 Atherosclerotic heart disease of native coronary artery without angina pectoris; K31.84 Gastroparesis; K22.4 Dyskinesia of esophagus; Z95.1 Presence of aortocoronary bypass graft; Z79.82 Long term (current) use of aspirin; Z79.84 Long term (current) use of oral hypoglycemic drugs; Z79.890 Hormone replacement therapy; Z79.899 Other long term (current) drug therapy; Z87.891 Personal history of nicotine dependence
CPT/HCPCS: 32555; 36415; 36600; 71045; 71046; 71250; 74230; 80048; 80053; 80143; 81001; 82803; 82945; 83605; 83615; 83735; 83880; 84155; 84157; 85025; 85610; 85730; 87040; 87070; 87075; 87086; 87205; 88108; 88305; 88313; 89050; 92526; 92610; 92611; 93005; 93308; 93970; 94002; 94003; 94668; 94762; 97110; 97116; 97162; 97167; 97530; 97535; 97802; 99252; 99285; A4216; C1769; G0463; J1938; J2405